=== PATIENT | male | born 1940 | race Caucasian/White ===

== ENCOUNTER 2016-07-18 13:24 | Outpatient (RCR) | payer MEDICARE, BC ==
[~2016-07-18 13:24] MED LIST: ACIDOPHILUS100 MG PO; ACIPHEX; ACTOS15 MG; AMIO200T2 PO; AMLO5TAB2 PO; APIX5TAB PO; ASCO500C14 PO; ASP325TEC PO; ASP81CT PO; ASP81TEC PO; ASPI; ASPI-587 PO; ASPI-875 PO; ATN50T; ATRV10T; AVODART; CALC-80; CALCIUM; CEPH500C PO; CHOL10003 PO; CIPR500T78 PO; CLOP75TA PO; CLOP75TA28 PO; CLPD75T PO; CYAN10006 PO; D50KC PO; DILT180C PO; DILT180C84 PO; DOXA1TAB2 PO; DOXY100C2 PO; DOXY100T2 PO; DOXY100T61 PO; DUTA0.5C14 PO; DUTA1CPM PO; DUTA1CPM4 PO; ECHI1CAP PO; FAMO20TA5 PO; FENO134C2 PO; FENO145T2; FISH OIL; FURO20TA4 PO; GARLIC; GLUMETZA; HCT25T PO; HYDR-3876 PO; LD5O35 TOP; LEVO500T69 PO; LOSA100T28 PO; LOSA100T7 PO; LOSA50TA6 PO; METO100T2 PO; MIRA25TA PO; MULT-608 PO; MULTIVITAMIN; NFNEB10T PO; NIAC1CAP PO; NIAC250T17 PO; NITR-68 PO; NITR0.4T SL; OMEG-12 PO; OMEG1CAP24 PO; OMEG1CAP51 PO; OMEP-10 PO; OXYB10TA PO; OXYB5TAB PO; PANT40TA PO; PANT40TA3 PO; PANTOTHENIC ACID; PHEN200T27 PO; PNT40TEC PO; POTA99TA7; PRAV20TA3 PO; RANO10003 PO; ROSU5TAB PO; RT-ALBUINH INH; SAXA5TAB PO; SCR1T1 PO; SULF1TAB38; TAMS0.4C2 PO; TAMS0.4C98 PO; TELM40T; TERB250T10; VITA1CAP21 PO; VITA1TAB30 PO; VITAMIN B; VITAMIN C; VITAMIN E; calcium with D
== END 2016-07-18 15:18 | disposition home or self-care (01) ==
PROVIDERS: ATTEND Family Medicine
DX: M54.5 Low back pain (principal); R53.1 Weakness

== ENCOUNTER → 2017-02-28 | Outpatient (CLI) | payer MEDICARE, BC ==
[~2017-02-28] MED LIST changes: +REGADENOSON 0.4 MG/5 ML SYR (LEXISCAN) IV ONE
[2017-02-28 09:04] VITALS: BP 168/70
[2017-02-28 09:23] VITALS: BP 163/69
[2017-02-28 09:25] VITALS: BP 162/76
== END ==
LOC: CARD 07:12
PROVIDERS: ATTEND Internal Medicine Cardiovascular Disease
DX: I10 Essential (primary) hypertension (principal); R06.09 Other forms of dyspnea; R53.83 Other fatigue; E78.4 Other hyperlipidemia; I65.23 Occlusion and stenosis of bilateral carotid arteries; I48.0 Paroxysmal atrial fibrillation; E66.09 Other obesity due to excess calories
CPT/HCPCS: 78452; 93017

== ENCOUNTER → 2017-03-09 | Outpatient (CLI) | payer MEDICARE, BC ==
[~2017-03-09] MED LIST changes: +CATHETER FLUSH 10 ML SYR IV PRN; -REGADENOSON 0.4 MG/5 ML SYR (LEXISCAN) IV ONE
== END ==
LOC: CARD 12:34
PROVIDERS: ATTEND Internal Medicine Cardiovascular Disease
DX: I65.23 Occlusion and stenosis of bilateral carotid arteries (principal); R53.83 Other fatigue; E78.4 Other hyperlipidemia; I10 Essential (primary) hypertension; R06.09 Other forms of dyspnea; I48.0 Paroxysmal atrial fibrillation; E66.09 Other obesity due to excess calories
CPT/HCPCS: 93306

== ENCOUNTER 2017-03-18 19:21 | Observation (INO) | payer MEDICARE, BC ==
[~2017-03-18] VITALS: Ht 182.9 cm; Wt 116.1 kg
[~2017-03-18 19:21] MED LIST changes: -CATHETER FLUSH 10 ML SYR IV PRN
[2017-03-18] MEDS ORDERED: ASPIRIN 81 MG CHEW (CHILDREN'S ASA) PO ONE (19:45)
[2017-03-18 20:02] LABS: BASOPHILS % (AUTO) 0 % (0-10); EOSINOPHILS # (AUTO) 0.1 10^3/uL (0.0-0.3); EOSINOPHILS % (AUTO) 2 % (0-10); LYMPHOCYTES % (AUTO) 40 % (12-44); MEAN CORPUSCULAR HEMOGLOBIN 32 PG (25-34); MEAN CORPUSCULAR HGB CONC 34 G/DL (32-36); MEAN CORPUSCULAR VOLUME 94 FL (80-99); MEAN PLATELET VOLUME 11.6 FL (7.4-10.4); MONOCYTES % (AUTO) 19 % (0-12); NEUTROPHILS # (AUTO) 1.9 X 10^3 (1.8-7.8); NEUTROPHILS % (AUTO) 39 % (42-75); PLATELET COUNT 140 10^3/uL (130-400); RED CELL DISTRIBUTION WIDTH 13.6 % (10.0-14.5)
--- NOTE | 2017-03-18 20:04 | Diagnostic Imaging Report ---
EXAMINATION: Chest radiograph, portable AP view. DATE: March 18, 2017 at 1951 hours. INDICATION: 76-year-old male, chest pain. COMPARISON: April 23, 2016. FINDINGS: There are median sternotomy wires. There are mediastinal surgical clips. Heart size and mediastinal contours are unchanged. There is no identified pneumothorax. There is no large pleural effusion. There is a nodular opacity overlying the right midlung unchanged since comparison chest radiograph of June 19, 2015. There is no identified interval focal airspace consolidation. IMPRESSION: 1. No identified acute cardiopulmonary abnormality. Dictated by: Dictated on workstation # [id number]
[2017-03-18 20:06] LABS: INR 1.2 (0.8-1.4)
[2017-03-18] MEDS ORDERED: NITROGLYCERIN 2% OINT 1 GM UNIT DOSE PACKET TOP ONE (20:15)
[2017-03-18 20:18] LABS: ALANINE AMINOTRANSFERASE 18 U/L (0-55); ALBUMIN 3.9 GM/DL (3.2-4.5); AMYLASE 50 U/L (25-125); ANION GAP 10 MMOL/L (5-14); ASPARTATE AMINO TRANSFERASE 19 U/L (5-34); BILIRUBIN,TOTAL 0.8 MG/DL (0.1-1.0); BLOOD UREA NITROGEN 13 MG/DL (7-18); BUN/CREATININE RATIO 15; CALCIUM 9.1 MG/DL (8.5-10.1); CARBON DIOXIDE 23 MMOL/L (21-32); CHLORIDE 108 MMOL/L (98-107); CREATINE KINASE 92 U/L (30-200); CREATININE SERUM 0.84 MG/DL (0.60-1.30); GFR ESTIMATED > 60; GLUCOSE 105 MG/DL (70-105); LIPASE 21 U/L (8-78); MAGNESIUM 2.1 MG/DL (1.8-2.4); POTASSIUM 3.5 MMOL/L (3.6-5.0); SODIUM 141 MMOL/L (135-145); TOTAL PROTEIN 6.6 GM/DL (6.4-8.2)
[2017-03-18 20:24] LABS: TROPONIN I < 0.30 NG/ML (<0.30)
[2017-03-18 22:15] VITALS: BP 197/89
[2017-03-18] MEDS ORDERED: morphine INJ 4 MG/ML 1 ML (VIAL/SYRINGE) IV PRN (22:30)
[2017-03-18] MEDS ORDERED: NITROGLYCERIN 0.4 MG SL TABS BTL 25'S SL PRN (22:30)
[2017-03-19] VITALS (17 sets, daily range): BP systolic 121–199; BP diastolic 67–100
[2017-03-19] MEDS ORDERED: amLODIPine 10 MG (NORVASC) TAB PO ONE
[2017-03-19] MEDS ORDERED: NITROGLYCERIN DRIP 25 MG/D5W 250 ML IV SCH
[2017-03-19] MEDS: NITROGLYCERIN 2% OINT 1 GM UNIT DOSE PACKET TOP SCH ×3 (03:33→14:18)
[2017-03-19 05:17] LABS: BASOPHILS % (AUTO) 0 % (0-10); EOSINOPHILS # (AUTO) 0.1 10^3/uL (0.0-0.3); EOSINOPHILS % (AUTO) 3 % (0-10); LYMPHOCYTES # (AUTO) 1.7 X 10^3 (1.0-4.0); LYMPHOCYTES % (AUTO) 38 % (12-44); MEAN CORPUSCULAR HEMOGLOBIN 31 PG (25-34); MEAN CORPUSCULAR HGB CONC 33 G/DL (32-36); MEAN CORPUSCULAR VOLUME 94 FL (80-99); MEAN PLATELET VOLUME 11.9 FL (7.4-10.4); MONOCYTES # (AUTO) 0.8 X 10^3 (0.0-1.0); MONOCYTES % (AUTO) 17 % (0-12); NEUTROPHILS # (AUTO) 1.9 X 10^3 (1.8-7.8); NEUTROPHILS % (AUTO) 42 % (42-75); PLATELET COUNT 136 10^3/uL (130-400); RED CELL DISTRIBUTION WIDTH 13.5 % (10.0-14.5); WHITE BLOOD COUNT 4.5 10^3/uL (4.3-11.0)
[2017-03-19 05:48] LABS: ALANINE AMINOTRANSFERASE 19 U/L (0-55); ALBUMIN 3.5 GM/DL (3.2-4.5); ANION GAP 9 MMOL/L (5-14); ASPARTATE AMINO TRANSFERASE 19 U/L (5-34); BILIRUBIN,TOTAL 0.7 MG/DL (0.1-1.0); BLOOD UREA NITROGEN 11 MG/DL (7-18); BUN/CREATININE RATIO 14; CALCIUM 8.6 MG/DL (8.5-10.1); CARBON DIOXIDE 22 MMOL/L (21-32); CHLORIDE 111 MMOL/L (98-107); CHOLESTEROL 157 MG/DL (< 200); CREATININE SERUM 0.78 MG/DL (0.60-1.30); DIRECT LDL 110 MG/DL (1-129); GFR ESTIMATED > 60; GLUCOSE 89 MG/DL (70-105); PHOSPHORUS 2.7 MG/DL (2.3-4.7); POTASSIUM 3.8 MMOL/L (3.6-5.0); SODIUM 142 MMOL/L (135-145); TOTAL PROTEIN 5.9 GM/DL (6.4-8.2); TRIGLYCERIDES 123 MG/DL (<150); VLDL CHOLESTEROL 25 MG/DL (5-40)
[2017-03-19 05:57] LABS: MYOGLOBIN SERUM 76.7 NG/ML (10.0-92.0)
--- NOTE | 2017-03-19 06:46 | ED Chest Pain ---
General Chief Complaint: Chest Pain Stated Complaint: CHEST PAIN; HYPERTENSIVE URGENCY Nursing Triage Note: C/O cp starting approx 1 hour agop while waiting to go into [facility]. Also states that he nearly "passed out" Denies soa or radiation. States the pain is gone at this time Nursing Sepsis Screen: No Definite Risk Source: patient History of Present Illness Time seen by provider: 19:23 Initial Comments PT ARRIVES VIA POV FROM HOME C/O CHEST PAIN--BEGAN APPROXIMATELY AN HOUR AGO, WHILE WALKING IN PARKING LOT FROM HIS VEHICLE INTO [facility]--DID GO AHEAD AND EAT AND THEN CAME HERE--PAIN IS GONE NOW STATES HE ALMOST FAINTED WHEN HE WAS WALKING INTO THE RESTAURANT, STILL FEELS DIZZY PT HAS HX OF CAD, AND HAS HAD 3 VESSEL CABG AND 1 STENT--HAS NTG, AND HAD IT IN HIS POCKET, BUT DID NOT TAKE IT AND STATES HE HAS NEVER TAKEN IT. HAS INTERMITTENT ATRIAL FIBRILLATION--TAKES ELIQUIS + MILD SHORTNESS OF BREATH WITH EXERTION, NOT NOW NO SWEATS NO NAUSEA HAS CHRONIC LEG EDEMA, NO DIFFERENT THAN USUALLY MYOCARDIAL SPECT IMAGING 02/28/17--NO SIGNIFICANT ISCHEMIA OR INFARCTION, NORMAL EF OF 58% WITH NORMAL WALL MOTION ECHOCARDIOGRAM 03/09/17- WALL THICKNESS IS INCREASED, EF 60-65%, NO WALL MOTION ABNORMALITIES, MILD MITRAL REGURG. PCP: DR. LANDON STATISTICAL DEVELOPER: DR BAKER Allergies and Home Medications Allergies Coded Allergies: ciprofloxacin (Verified Adverse Reaction, Mild, HALLUCINATIONS, 02/28/17) clonidine (Verified Adverse Reaction, Mild, HALLUCINATIONS, 02/28/17) Uncoded Allergies: AMINODORONE (Allergy, Unknown, 03/18/17) Home Medications Apixaban 5 Mg Tablet, 5 MG PO BID, (Reported) Cholecalciferol 1,000 Unit Tablet, 1,000 UNIT PO BID, (Reported) Cyanocobalamin (Vitamin B-12) 1,000 Mcg Tablet, 1,000 MCG PO DAILY, (Reported) Diltiazem HCl 180 Mg Cap.er.24h, 180 MG PO DAILY, #30 Ref 6 Prescribed by: RYAN LANDON on 05/02/16928 Doxazosin Mesylate 1 Mg Tablet, 1 MG PO BID, (Reported) Doxycycline Hyclate 100 Mg Tablet, 100 MG PO BID@, #8 Prescribed by: RYAN LANDON on 05/02/16928 Dutasteride/Tamsulosin HCl 1 Each Cpmp.24hr, 1 CAP PO HS, (Reported) Furosemide 20 Mg Tablet, 20 MG PO DAILY PRN for SWELLING, (Reported) Lidocaine HCl 35 Gm Oint, TOP BID PRN for PAIN, (Reported) Losartan Potassium 100 Mg Tablet, 100 MG PO DAILY, (Reported) Metoprolol Tartrate 100 Mg Tablet, 100 MG PO BID, (Reported) Multivitamins 1 Tab Tablet, 1 TAB PO DAILY, (Reported) Oxybutynin Chloride 10 Mg Tab.er.24, 10 MG PO DAILY, (Reported) Pantoprazole Sodium 40 Mg Tablet.dr, 40 MG PO DAILY, (Reported) Saxagliptin HCl 5 Mg Tablet, 5 MG PO DAILY, (Reported) Review of Systems Constitutional: see HPI, dizziness EENTM: No Symptoms Reported Respiratory: See HPI, SOA With Exertion Cardiovascular: See HPI, Chest Pain, Edema, Lightheadedness, Denies Palpitations, Denies Syncope Gastrointestinal: No Symptoms Reported, Denies Abdominal Pain, Denies Nausea, Denies Vomiting Genitourinary: No Symptoms Reported Musculoskeletal: no symptoms reported Skin: no symptoms reported Psychiatric/Neurological: No Symptoms Reported Endocrine: No Symptoms Reported Hematologic/Lymphatic: No Symptoms Reported Other Comments PT 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 Past Pyjpqwl-Xlmlht-Hjwory Hx Patient Social History Alcohol Use: Rarely Uses Recreational Drug Use: No Smoking Status: Former Smoker (1 PPD--QUIT YEARS AGO, PER PT ON 03/18/17) Type Used: Cigarettes 2nd Hand Smoke Exposure: No Recent Foreign Travel: No Contact w/Someone Who Travel: No Recent Infectious Disease Expo: No Recent Hopitalizations: No Physical Abuse: No Sexual Abuse: No Mistreated: No Fear: No Immunizations Up To Date Tetanus Booster (TDap): Unknown Date of Pneumonia Vaccine: May 09, 2013 Date of Influenza Vaccine: Mar 09, 2016 Seasonal Allergies Seasonal Allergies: Yes Surgeries History of Surgeries: Yes (CABG; CARDIAC CATHS--STENT X 1; ,KIDNEY STONE SX X3, LITHOTRIPSIES; BILAT EYE IMPLANT/CATARACTS, PROSTATE SEED IMPLANTS; COLONOSCOPY/ EGD) Surgeries: Cardiac, CABG, Coronary Stent, Eye Surgery, Gallbladder, Renal Respiratory History of Respiratory Disorde: Yes (SLEEP APNEA-CPAP) Respiratory Disorders: Pneumonia, Sleep Apnea Currently Using CPAP: Yes Currently Using BIPAP: No Cardiovascular History of Cardiac Disorders: Yes (TRIPLE BYPASS, STENT, HX AFIB EPISODES) Cardiac Disorders: Angina, Atrial Fibrillation, Chronic Edema/Swelling, Coronary Artery Disease, High Cholesterol, Hypertension Neurological History of Neurological Disord: Yes (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) Neurological Disorders: TIA Reproductive System Hx Reproductive Disorders: No Sexually Transmitted Disease: No HIV/AIDS: No Genitourinary History of Genitourinary Disor: Yes (PROSTATE CANCER; PROSTATE ENLARGEMENT) Genitourinary Disorders: Kidney Infection, Prostate Problems, Bladder Infection , Kidney Stones Gastrointestinal History of Gastrointestinal Di: Yes Gastrointestinal Disorders: Gastroesophageal Reflux, Chronic Constipation, Polyps Musculoskeletal History of Musculoskeletal Dis: Yes (MILD, lyme's disease) Musculoskeletal Disorders: Arthritis 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, Non-Insulin dep HEENT History of HEENT Disorders: Yes (BILATERAL CATARACT SURGERY) HEENT Disorders: Cataract Loss of Vision: Denies Hearing Impairment: Hard of Hearing Cancer History of Cancer: Yes (PROSTATE SEEDS IMPLANTED 10/08) Cancer: Prostate Psychosocial History of Psychiatric Problem: No Suicide Risk Score: 0 Integumentary History of Skin or Integumenta: No Blood Transfusions History of Blood Disorders: No Family Medical History Significant Family History: Hypertension Family Medial History: Cardiovascular disease 19 FATHER, Diabetes mellitus G8 SISTER Physical Exam Vital Signs Vital Sign - Last 12Hours 03/18/17 19:25 Pulse 66 Resp 18 B/P (MAP) 224/93 Pulse Ox 96 O2 Delivery Nasal Cannula O2 Flow Rate 2.00 Capillary Refill : Less Than 3 Seconds General Appearance: No Apparent Distress, WD/WN, Obese HEENT: PERRL/EOMI Neck: Full Range of Motion, Normal Inspection, Non Tender, Supple Respiratory: Chest Non Tender, Normal Breath Sounds, No Accessory Muscle Use, No Respiratory Distress Cardiovascular: Regular Rate, Rhythm, No JVD, No Murmur, Normal Peripheral Pulses Gastrointestinal: Non Tender, Soft Extremity: Normal Range of Motion, Non Tender, No Calf Tenderness, Pedal Edema (2+ BILATERALLY) Neurologic/Psychiatric: Alert, Oriented x3, No Motor/Sensory Deficits, Normal 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, 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 Norm as Tested Skin: Normal Color, Warm/Dry Progress/Results/Core Measures Results/Orders Lab Results Laboratory Tests Test 03/18/17 19:30 Range/Units White Blood Count 5.0 4.3-11.0 10^3/uL Red Blood Count 4.20 L 4.35-5.85 10^6/uL Hemoglobin 13.3 13.3-17.7 G/DL Hematocrit 39 L 40-54 % Mean Corpuscular Volume 94 80-99 FL Mean Corpuscular Hemoglobin 32 25-34 PG Mean Corpuscular Hemoglobin Concent 34 32-36 G/DL Red Cell Distribution Width 13.6 10.0-14.5 % Platelet Count 140 130-400 10^3/uL Mean Platelet Volume 11.6 H 7.4-10.4 FL Neutrophils (%) (Auto) 39 L 42-75 % Lymphocytes (%) (Auto) 40 12-44 % Monocytes (%) (Auto) 19 H 0-12 % Eosinophils (%) (Auto) 2 0-10 % Basophils (%) (Auto) 0 0-10 % Neutrophils # (Auto) 1.9 1.8-7.8 X 10^3 Lymphocytes # (Auto) 2.0 1.0-4.0 X 10^3 Monocytes # (Auto) 1.0 0.0-1.0 X 10^3 Eosinophils # (Auto) 0.1 0.0-0.3 10^3/uL Basophils # (Auto) 0.0 0.0-0.1 10^3/uL Prothrombin Time 15.0 H 12.2-14.7 SEC INR Comment 1.2 0.8-1.4 Activated Partial Thromboplast Time 31 24-35 SEC Sodium Level 141 135-145 MMOL/L Potassium Level 3.5 L 3.6-5.0 MMOL/L Chloride Level 108 H 98-107 MMOL/L Carbon Dioxide Level 23 21-32 MMOL/L Anion Gap 10 5-14 MMOL/L Blood Urea Nitrogen 13 7-18 MG/DL Creatinine 0.84 0.60-1.30 MG/DL Estimat Glomerular Filtration Rate > 60 BUN/Creatinine Ratio 15 Glucose Level 105 70-105 MG/DL Calcium Level 9.1 8.5-10.1 MG/DL Magnesium Level 2.1 1.8-2.4 MG/DL Total Bilirubin 0.8 0.1-1.0 MG/DL Aspartate Amino Transf (AST/SGOT) 19 5-34 U/L Alanine Aminotransferase (ALT/SGPT) 18 0-55 U/L Alkaline Phosphatase 40 40-136 U/L Total Creatine Kinase 92 30-200 U/L Creatine Kinase MB 1.2 <6.6 NG/ML Troponin I < 0.30 <0.30 NG/ML B-Type Natriuretic Peptide 133.2 H <100.0 PG/ML Total Protein 6.6 6.4-8.2 GM/DL Albumin 3.9 3.2-4.5 GM/DL Amylase Level 50 25-125 U/L Lipase 21 8-78 U/L My Orders Orders - MAGDALENA CROWE DO Amylase (03/18/17 19:31) Cbc With Automated Diff (03/18/17 19:31) Comprehensive Metabolic Panel (03/18/17 19:31) Creatine Kinase (03/18/17 19:31) Creatine Kinase Mb (03/18/17 19:31) Lipase (03/18/17 19:31) Partial Thromboplastin Time (03/18/17 19:31) Protime With Inr (03/18/17 19:31) Troponin I (03/18/17 19:31) Chest 1 View, Ap/Pa Only (03/18/17 19:31) O2 (03/18/17 19:31) Ekg Tracing (03/18/17 19:31) Aspirin Chewable Tablet (Baby Aspirin Ch (03/18/17 19:45) BNP (03/18/17 19:31) Monitor-Rhythm Ecg Trace Only (03/18/17 19:31) Magnesium (03/18/17 19:31) Nitroglycerin Ointment (Nitrobid Ointme (03/18/17 20:15) Medications Given in ED Current Medications Medications Dose Ordered Sig/Mariajose Route Start Time Stop Time Status Last Admin Dose Admin Aspirin 324 mg ONCE ONCE PO 03/18/17 19:45 03/18/17 19:46 DC 03/18/17 19:40 324 MG Nitroglycerin 1 inch ONCE ONCE TOP 03/18/17 20:15 03/18/17 20:16 DC 03/18/17 20:11 1 INCH Vital Signs/I&O Vital Sign - Last 12Hours 03/18/17 03/18/17 19:25 19:47 Pulse 66 Resp 18 B/P (MAP) 224/93 Pulse Ox 96 98 O2 Delivery Nasal Cannula Nasal Cannula O2 Flow Rate 2.00 2.00 Blood Pressure Mean: 92 Point of Care Testing Finger Stick Blood Glucose: 89 Progress Note : Progress Note NITROPASTE PLACED FOR ELEVATED BP--BP DOWN AND PT LESS DIZZY PT LATER STATES THAT HE DOESN'T REMEMBER IF HE TOOK HIS BP MEDICATION TODAY-- THINKS HE MIGHT HAVE FORGOTTEN TO TAKE IT TODAY. UNEVENTFUL ER STAY ECG Initial ECG Rhythm: Normal Sinus Initial ECG Comparisson: Unchanged Departure Communication (Admissions) Progress Notes 2109--SPOKE WITH DR NAQVI, LAST SAWYER FOR DR. LANDON/[facility] ACCEPTS PT FOR ADMIT. 2112--SPOKE WITH DR. CARRASCO FOR CARDIOLOGY CONSULT. Impression Impression: Primary Impression: Chest pain Additional Impression: HTN (hypertension) Disposition: ADMITTED INPATIENT Condition: Improved Admissions Decision to Admit Reason: Admit from ER (General) Decision to Admit/Date: Mar 18, 2017 Time/Decision to Admit Time: 21:10 Departure-Patient Inst. Referrals: RYAN LANDON MD (PCP) Primary Care Physician MAGDALENA CROWE DO Mar 19, 2017 06:46
[2017-03-19] MEDS ORDERED: ASPIRIN E.C. 325 MG (ECOTRIN) TABLET PO SCH (09:00)
--- NOTE | 2017-03-19 10:24 | Diagnostic Imaging Report ---
INDICATION: Dyspnea. TECHNIQUE: Single-view chest 5:16 AM. CORRELATION STUDY: 03/18/2017. FINDINGS: There are poststernotomy changes. Heart size enlarged. Mediastinum stable. Vasculature within normal limits. Likely chronic, senescent-type changes about the lung parenchyma. A few calcified granulomas present. IMPRESSION: Poststernotomy changes. Cardiac enlargement without failure or otherwise acute findings. Dictated by: Dictated on workstation # [id number]
[2017-03-19] MEDS ORDERED: lisINopril 20 MG (ZESTRIL) TAB PO SCH (10:45)
[2017-03-19] MEDS ORDERED: DILT120C53 PO (11:00)
[2017-03-19] MEDS ORDERED: OXYB15TA PO (11:29)
[2017-03-19] MEDS ORDERED: PRAV20TA3 PO (11:29)
[2017-03-19] MEDS ORDERED: METO100T2 PO ×2 (11:29→12:40)
[2017-03-19] MEDS ORDERED: UBID100C17 PO (11:29)
[2017-03-19] MEDS ORDERED: MULT-1029 PO (11:29)
[2017-03-19] MEDS ORDERED: CHOL10007 PO (11:29)
[2017-03-19] MEDS ORDERED: CYAN10007 PO (11:29)
--- NOTE | 2017-03-19 11:58 | History & Physical-Hospitalist ---
HPI History of Present Illness: HPI/Chief Complaint CC: Chest pain with malignant HTN episode HPI: This is a 76-year-old white male clinic patient of Dr. Shetty with a past medical history of hypertension and BPH the presents to the emergency room with complaints of chest pressure and malignant hypertension episode of 220/ 120. He has had multiple blood pressure medication changes recently and has sensitivity to clonidine and amiodarone but having more more difficulty with chest pressure and hypertension that remains under control as previous. I have reconciled all his home medications and cardiology will overhaul blood pressure management per their request. He denies any chest pressure at this current time and questions whether or not he had chest pressure to begin with and was arguing with the nurse and engineer technical staff and his regarding his presenting complaint. He also takes his blood pressure medication now and then and changes around when he thinks he needs to change it. Source: patient, family, RN/MD Exam Limitations: no limitations Date Seen 03/19/17 Time Seen by Provider: 11:00 Attending Physician Bri Shetty MD PCP Bri Shetty MD Referring Physician Date of Admission Mar 18, 2017 at 21:15 Home Medications & Allergies Home Medications Reviewed patient Home Medication Reconciliation Form Allergies Allergies Coded Allergies ciprofloxacin (Verified Adverse Reaction, Mild, HALLUCINATIONS, 02/28/17) clonidine (Verified Adverse Reaction, Mild, HALLUCINATIONS, 02/28/17) Uncoded Allergies AMINODORONE ( Allergy, Unknown, 03/18/17) Past Humdbnq-Havtui-Jjczfm Hx Patient Social History Marrital Status: Employed/Student: retired ([employer]) Alcohol Use: Rarely Uses Recreational Drug Use: No Smoking Status: Former Smoker (1 PPD--QUIT YEARS AGO, PER PT ON 03/18/17) Type Used: Cigarettes 2nd Hand Smoke Exposure: No Physical Abuse Screen: No Sexual Abuse: No Recent Foreign Travel: No Contact w/other who traveled: No Recent Hopitalizations: No Recent Infectious Disease Expo: No Immunizations Up To Date Tetanus Booster (TDap): Unknown Date of Pneumonia Vaccine: May 09, 2013 Date of Influenza Vaccine: Mar 09, 2016 Seasonal Allergies Seasonal Allergies: Yes Surgeries Yes (CABG; CARDIAC CATHS--STENT X 1; ,KIDNEY STONE SX X3,LITHOTRIPSIES; BILAT EYE IMPLANT/CATARACTS, PROSTATE SEED IMPLANTS; COLONOSCOPY/EGD) Cardiac, CABG, Coronary Stent, Eye Surgery, Gallbladder, Renal Respiratory Yes (SLEEP APNEA-CPAP) Sleep Apnea Currently Using CPAP: Yes Currently Using BIPAP: No Cardiovascular Yes (TRIPLE BYPASS, STENT, HX AFIB EPISODES) Angina, Atrial Fibrillation, Chronic Edema/Swelling, Coronary Artery Disease, High Cholesterol, Hypertension Neurological Yes (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) TIA Reproductive System Hx Reproductive Disorders: No Sexually Transmitted Disease: No HIV/AIDS: No Genitourinary Yes (PROSTATE CANCER; PROSTATE ENLARGEMENT) Kidney Infection, Prostate Problems, Bladder Infection, Kidney Stones Gastrointestinal Yes Gastroesophageal Reflux, Chronic Constipation, Polyps Musculoskeletal Yes (MILD, lyme's disease) Arthritis 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, Non-Insulin dep HEENT History of HEENT Disorders: Yes (BILATERAL CATARACT SURGERY) HEENT Disorders: Cataract Loss of Vision: Denies Hearing Impairment: Hard of Hearing Cancer Yes (PROSTATE SEEDS IMPLANTED 10/08) Prostate Psychosocial History of Psychiatric Problem: No Integumentary History of Skin or Integumenta: No Blood Transfusions History of Blood Disorders: No Family Medical History Significant Family History: Hypertension Family Hx: Cardiovascular disease 19 FATHER, Diabetes mellitus G8 SISTER Review of Systems Constitutional: see HPI EENTM: no symptoms reported Respiratory: no symptoms reported Cardiovascular: chest pain Gastrointestinal: no symptoms reported Genitourinary: no symptoms reported Musculoskeletal: no symptoms reported Skin: no symptoms reported Psychiatric/Neurological: No Symptoms Reported All Other Systems Reviewed Negative Unless Noted: Yes Physical Exam Physical Exam Vital Signs Vital Sign - Last 12Hours 03/18/17 03/18/17 19:25 22:03 Temp 98.3 Pulse 66 Resp 18 B/P (MAP) 224/93 Pulse Ox 96 O2 Delivery Nasal Cannula O2 Flow Rate 2.00 Capillary Refill : Less Than 3 Seconds General Appearance: No Apparent Distress, WD/WN, Chronically ill, Obese Eyes: Bilateral Eye Normal Inspection, Bilateral Eye PERRL HEENT: PERRL/EOMI, Normal ENT Inspection, Pharynx Normal Neck: Full Range of Motion, Normal Inspection, Non Tender, Supple, Carotid Bruit Respiratory: Chest Non Tender, Lungs Clear, Normal Breath Sounds, No Accessory Muscle Use, No Respiratory Distress Cardiovascular: No Edema, No Gallop, No JVD, No Murmur, Normal Peripheral Pulses, Irregularly Irregular Gastrointestinal: Normal Bowel Sounds, No Organomegaly, No Pulsatile Mass, Non Tender, Soft Back: Normal Inspection, No CVA Tenderness, No Vertebral Tenderness Extremity: Normal Capillary Refill, Normal Inspection, Normal Range of Motion, Non Tender, No Calf Tenderness, No Pedal Edema Neurologic/Psychiatric: Alert, Oriented x3, No Motor/Sensory Deficits, Normal Mood/Affect Skin: Normal Color, Warm/Dry Lymphatic: No Adenopathy Results Results/Procedures Lab Laboratory Tests 03/18/17 19:30 03/19/17 04:25 Assessment/Plan Admission Diagnosis Assessment: Chest pain with malignant hypertensive episode AF Mild elevation in BNP BPH Hyperlipidemia Assessment and Plan Plan: Reconciled all home meds except for blood pressure management of which cardiology will manage at the request Monitor closely for chest pain Monitor oxygen level Disposition per cardiology Diagnosis/Problems Diagnosis/Problems (1) Atrial fibrillation Status: Chronic Assessment & Plan: Maintain telemetry and monitor heart rate Qualifiers: Qualified Codes: I48.2 - Chronic atrial fibrillation (2) BPH (benign prostatic hyperplasia) Status: Chronic Assessment & Plan: continue on all home meds Qualifiers: Qualified Codes: N40.0 - Benign prostatic hyperplasia without lower urinary tract symptoms (3) HTN (hypertension) Status: Chronic Assessment & Plan: Blood pressure management overhauled by cardiology at the request (4) Chest pain Status: Acute Assessment & Plan: Cardiology evaluation for risk stratification Qualifiers: Qualified Codes: R07.89 - Other chest pain Clinical Quality Measures AMI/AHF: ASA po Prior to arrival: No DVT/VTE Risk/Contraindication: Risk Factor Score Per Nursin RFS Level Per Nursing on Admit: 2=Moderate JANEY NAQVI DO Mar 19, 2017 11:58
[2017-03-19] MEDS ORDERED: FUROSEMIDE 20 MG (LASIX) TAB PO PRN (12:00)
--- NOTE | 2017-03-19 12:26 | Consultation-Cardiology ---
HPI-Cardiology Cardiology Consultation: Date of Consultation 03/19/17 Date of Admission Attending Physician Bri Shetty MD Admitting Physician Bri Shetty MD Consulting Physician Kwadwo SORIA MD HPI: Time Seen by Provider: 12:21 Chief Complaint: Chest pain, dizziness This is a 76-year-old gentleman who is a patient of Dr. Culver and Dr. Shetty. He presented with complain of chest pain and dizziness. No further complaints on my history. The chest pain occurred while he was walking. Chest pain was mild intensity with no radiation. There were no excessive abating or relieving factors. It went away by itself. Dizziness however did persisted even in the ER. He was found to have significant high blood pressure. Complains of mild shortness of breath. The patient has history of coronary artery disease with three-vessel CABG and PCI. Patient also has previous history of paroxysmal atrial fibrillation and takes oral anticoagulation. Review of Systems-Cardiology Review of Systems Constitutional: No As described under HPI, No no symptoms reported, No chills, No fever, lightheadedness, No malaise, No tiredness, No weight loss, No weight gain, No other Eyes: No As described under HPI, No no symptoms reported, No blindness, No blurred vision, No contact lenses, No drainage, No decreased acuity, No foreign body sensation, No glasses, No inflammation, No pain, No photophobia, No previous injury, No shadows, No tunnel vision, No other, No vision change Ears/Nose/Throat: No As described under HPI, No no symptoms reported, No chronic hearing loss, No epistaxis, No ear discharge, No ear pain, No loose teeth, No mouth pain, No mouth swelling, No nasal drainage, No nose pain, No recent hearing loss, No throat pain, No throat swelling, No ulcerations, No other Respiratory: shortness of breath Cardiovascular: chest pain Gastrointestinal: No no symptoms reported, No As described under HPI, No abdomen distended, No abdominal pain, No blood streaked bowels, No constipation , No diarrhea, No difficulty swallowing, No nausea, No poor appetite, No poor fluid intake, No rectal bleeding, No vomiting, No other, No nausea/vomiting/ diarrhea, No stool coloration changes Genitourinary: No no symptoms reported, No As described under HPI, No burning, No dysuria, No discharge, No frequency, No flank pain, No hematuria, No incontinence, No pain, No urgency, No other, No urine frequency changes, No urine coloration changes Musculoskeletal: No no symptoms reported, No As describe under HPI, No back pain, No gout, No joint pain, No joint swelling, No muscle pain, No muscle stiffness, No neck pain, No other Skin: No no symptoms reported, No As described under HPI, No change in color, No change in hair/nails, No dryness, No lesions, No lumps, No rash, No other, No skin related problems, No ulcerations, No rash on exposed areas, No ulcerations on exposed areas Psychiatric/Neurological: As described under HPI Hematologic: No no symptoms reported, No As described under HPI, No anemia, No blood clots, No easy bleeding, No easy bruising, No swollen glands, No other, No bleeding abnormalities All Other Systems Reviewed Negative Unless Noted: Yes [id number] Hx Patient Social History Marrital Status: Employed/Student: retired ([employer]) Alcohol Use: Rarely Uses Recreational Drug Use: No Smoking Status: Former Smoker (1 PPD--QUIT YEARS AGO, PER PT ON 03/18/17) Former smoker/When Quit: Apr 21, 1980 Type Used: Cigarettes 2nd Hand Smoke Exposure: No Recent Foreign Travel: No Recent Infectious Disease Expo: No Physical Abuse Screen: No Sexual Abuse: No Immunizations Up To Date Tetanus Booster (TDap): Unknown Date of Pneumonia Vaccine: May 09, 2013 Date of Influenza Vaccine: Mar 09, 2016 Past Medical History PMH As described under Assessment. Family Medical History Family History: Cardiovascular disease 19 FATHER, Diabetes mellitus G8 SISTER Allergies and Home Medications Allergies Coded Allergies: ciprofloxacin (Verified Adverse Reaction, Mild, HALLUCINATIONS, 02/28/17) clonidine (Verified Adverse Reaction, Mild, HALLUCINATIONS, 02/28/17) Uncoded Allergies: AMINODORONE (Allergy, Unknown, 03/18/17) Home Medications Apixaban 5 Mg Tablet, 5 MG PO BID, (Reported) Cholecalciferol (Vitamin D3) 1,000 Unit Capsule, 1,000 UNIT PO BID, (Reported) Cyanocobalamin (Vitamin B-12) 1,000 Mcg Tablet.er, 1,000 MCG PO DAILY, (Reported ) Diltiazem HCl 120 Mg Cap.er.24h, 120 MG PO DAILY, (Reported) Doxazosin Mesylate 1 Mg Tablet, 1 MG PO BID, (Reported) Dutasteride/Tamsulosin HCl 1 Each Cpmp.24hr, 1 CAP PO HS, (Reported) Furosemide 20 Mg Tablet, 20 MG PO DAILY PRN for SWELLING, (Reported) Lidocaine HCl 35 Gm Oint, TOP BID PRN for PAIN, (Reported) Losartan Potassium 100 Mg Tablet, 100 MG PO DAILY, (Reported) Metoprolol Tartrate 100 Mg Tablet, 100 MG PO DAILY, (Reported) Metoprolol Tartrate 100 Mg Tablet, 50 MG PO HS, (Reported) TAKES 1/2 OF A (100 MG) TABLET Multivit-Min/FA/Lycopene/Lut 1 Each Tablet, 1 TAB PO DAILY, (Reported) Oxybutynin Chloride 15 Mg Tab.er.24, 15 MG PO DAILY, (Reported) Pantoprazole Sodium 40 Mg Tablet.dr, 40 MG PO DAILY, (Reported) Pravastatin Sodium 20 Mg Tablet, 20 MG PO DAILY, (Reported) Saxagliptin HCl 5 Mg Tablet, 5 MG PO DAILY, (Reported) Ubidecarenone 100 Mg Capsule, 100 MG PO HS, (Reported) Physical Exam-Cardiology Physical Exam Vital Signs/I&O Vital Sign - Last 12Hours 03/19/17 03/19/17 03/19/17 03/19/17 00:26 00:30 01:00 01:00 Temp 97.1 Pulse 50 53 56 57 Resp 18 7 14 B/P (MAP) 197/89 199/100 146/79 Pulse Ox 97 93 92 O2 Delivery Room Air Room Air Room Air O2 Flow Rate 2.00 03/19/17 03/19/17 03/19/17 03/19/17 02:00 03:00 04:00 04:00 Pulse 53 53 50 Resp 15 17 16 B/P (MAP) 164/83 127/67 121/68 Pulse Ox 91 93 93 96 O2 Delivery Room Air Room Air Room Air Room Air 03/19/17 03/19/17 03/19/17 03/19/17 05:00 06:00 07:00 08:00 Pulse 51 55 52 Resp 12 11 B/P (MAP) 133/76 135/71 Pulse Ox 94 93 98 O2 Delivery Room Air Room Air Room Air 03/19/17 12:00 Pulse Ox 98 O2 Delivery Room Air Capillary Refill : Less Than 3 Seconds Constitutional: No appears stated age, No AAO x 3, No apparent distress, No PERRL, No well-developed, No well-nourished, No other HEENT: No PERRL, No normal ENT inspection, No TMs normal, No pharynx normal, No scleral icterus (R), No scleral icterus (L), No pale conjunctivae (R), No pale conjunctivae (L), No photophobia, No TM abnormal (R), No TM abnormal (L), No pharyngeal erythema, No tonsillar exudate, No other, No discharge, No EOMI, No hearing is well preserved, No hard of hearing, No oral hygience is good, No ulceration, No xanthelasmas are seen Neck: No non-tender, No full range of motion, No supple, No normal inspection, No carotid bruit, No limited range of motion, No lymphadenopathy (R), No lymphadenopathy (L), No tender lateral, No tender midline, No thyromegaly, No other, No carotid pulses are 2 + bilaterally, No with good upstrokes Respiratory: No accessory muscle use, No respiratory distress, No chest tender , No chest expansion is symmetric, No chest is bilaterally symmetric, No lungs clear to percussion, No lungs clear to auscultation, No crackles, No rhonchi, No rales, No stridor, No wheezing, No pleural rub, No other Cardiovascular: regular rate-rhythm, No irregularly irregular, No extra beats, No parasternal heave is noted, No JVD, No edema, No bradycardia, No tachycardia , No point of maximal impulse, No cardiac thrills are palpable, S1 and S2, No gallop/S3, No gallop/S4, No diastolic murmur, No systolic murmur, No friction rub, No click, No other Gastrointestinal: No tender, No soft, No round, No distended, No pulsatile mass , No organomegaly, No guarding, No rebound, No tenderness, No hernia, No mass, No audible bowel sounds, No abnormal bowel sounds, No abdominal bruits, No spleenomegaly, No other Rectal: deferred Extremities: No normal range of motion, No non-tender, No normal inspection, No pedal edema, No calf tenderness, No normal capillary refill, No pelvis stable , No calf tenderness, No inflammation, No pedal edema, No slow capillary refill , No swelling, No other, No abrasion, No clubbing, No cyanosis, No ecchymosis, No laceration, No no lower extremity edema bilateral, No significant edema, No tenderness, No wound Neurologic/Psychiatric: No snag grinder II-XII nml as tested, No no motor/sensory deficits, No alert, No normal mood/affect, No oriented x 3, No abnormal cerebellar tests, No abnormal snag grinder II-XII, No abnormal gait, No aphasia, No EOM palsy, No facial droop, No motor weakness, No sensory deficit, No depressed affect, No disoriented x 3, No other, No grossly intact, No power is 5/5 both on sides Skin: No normal color, No warm/dry, No cyanosis, No cool, No diaphoresis, No damp, No ecchymosis, No jaundice, No mottled, No pallor, No rash, No tattoos/ piercings, No ulcerations, No rash on exposed areas, No ulcerations on exposed areas, No other Data Review Labs Laboratory Tests 03/18/17 19:30: White Blood Count 5.0, Red Blood Count 4.20L, Hemoglobin 13.3, Hematocrit 39L, Mean Corpuscular Volume 94, Mean Corpuscular Hemoglobin 32, Mean Corpuscular Hemoglobin Concent 34, Red Cell Distribution Width 13.6, Platelet Count 140, Mean Platelet Volume 11.6H, Neutrophils (%) (Auto) 39L, Lymphocytes (%) (Auto) 40, Monocytes (%) (Auto) 19H, Eosinophils (%) (Auto) 2, Basophils (%) (Auto) 0, Neutrophils # (Auto) 1.9, Lymphocytes # (Auto) 2.0, Monocytes # (Auto) 1.0, Eosinophils # (Auto) 0.1, Basophils # (Auto) 0.0, Prothrombin Time 15.0H, INR Comment 1.2, Activated Partial Thromboplast Time 31, Sodium Level 141, Potassium Level 3.5L, Chloride Level 108H, Carbon Dioxide Level 23, Anion Gap 10 , Blood Urea Nitrogen 13, Creatinine 0.84, Estimat Glomerular Filtration Rate > 60, BUN/Creatinine Ratio 15, Glucose Level 105, Calcium Level 9.1, Magnesium Level 2.1, Total Bilirubin 0.8, Aspartate Amino Transf (AST/SGOT) 19, Alanine Aminotransferase (ALT/SGPT) 18, Alkaline Phosphatase 40, Total Creatine Kinase 92, Creatine Kinase MB 1.2, Troponin I < 0.30, B-Type Natriuretic Peptide 133.2H , Total Protein 6.6, Albumin 3.9, Amylase Level 50, Lipase 21 03/19/17 04:25: White Blood Count 4.5, Red Blood Count 4.10L, Hemoglobin 12.8L, Hematocrit 39L, Mean Corpuscular Volume 94, Mean Corpuscular Hemoglobin 31, Mean Corpuscular Hemoglobin Concent 33, Red Cell Distribution Width 13.5, Platelet Count 136, Mean Platelet Volume 11.9H, Neutrophils (%) (Auto) 42, Lymphocytes (%) (Auto) 38 , Monocytes (%) (Auto) 17H, Eosinophils (%) (Auto) 3, Basophils (%) (Auto) 0, Neutrophils # (Auto) 1.9, Lymphocytes # (Auto) 1.7, Monocytes # (Auto) 0.8, Eosinophils # (Auto) 0.1, Basophils # (Auto) 0.0, Sodium Level 142, Potassium Level 3.8, Chloride Level 111H, Carbon Dioxide Level 22, Anion Gap 9, Blood Urea Nitrogen 11, Creatinine 0.78, Estimat Glomerular Filtration Rate > 60, BUN/ Creatinine Ratio 14, Glucose Level 89, Calcium Level 8.6, Magnesium Level 2.0, Total Bilirubin 0.7, Aspartate Amino Transf (AST/SGOT) 19, Alanine Aminotransferase (ALT/SGPT) 19, Alkaline Phosphatase 34L, Troponin I < 0.30, Total Protein 5.9L, Albumin 3.5, Phosphorus Level 2.7, Myoglobin 76.7, Triglycerides Level 123, Cholesterol Level 157, LDL Cholesterol Direct 110, VLDL Cholesterol 25, HDL Cholesterol 33L 03/19/17 11:02: Glucometer 86 ECG Impression ECG Initial ECG Rhythm: Normal Sinus A/P-Cardiology Assessment/Admission Diagnosis Chest pain, dizziness, hypertension urgency Plan Acute coronary syndrome has been ruled out with negative EKG and serial troponins. MYOCARDIAL SPECT IMAGING 02/28/17--NO SIGNIFICANT ISCHEMIA OR INFARCTION, NORMAL EF OF 58% WITH NORMAL WALL MOTION ECHOCARDIOGRAM 03/09/17- WALL THICKNESS IS INCREASED, EF 60-65%, NO WALL MOTION ABNORMALITIES, MILD MITRAL REGURG. Hypertension urgency: He was kept on nitroglycerin infusion overnight. Systolic blood pressure is 160 mmHg when I saw the patient. We'll start him on all his home medications. He may be discharged today but will continue to take blood pressure at home. If it is goes over again 200 mmHg he will seek immediate medical attention. He will call Dr. Culver's office tomorrow for an early appointment. Atrial fibrillation: Continue Eliquis. His heart rate was in the 50s, therefore , I have decreased his dose of metoprolol from 150 mg a day to 100 mg a day. The patient can be discharged today to follow-up with Dr. Culver early next week. Thank you for your consultation. Please call me if you have any questions. Tyler Soria MD, FACP, FACC, FSCAI, FHRS, CCDS Interventional Cardiology Cardiac Electrophysiology Vascular Medicine and Endovascular Interventions Clinical Quality Measures AMI/AHF: ASA po Prior to arrival: No DVT/VTE Risk/Contraindication: Risk Factor Score Per Nursin RFS Level Per Nursing on Admit: 2=Moderate Kwadwo SORIA MD Mar 19, 2017 12:26 pm
[2017-03-19] MEDS ORDERED: PATIENT MAY USE OWN MEDS, ALL MC SCH (14:15)
[2017-03-19] MEDS ORDERED: FINASTERIDE (PROSCAR) 5 MG TAB PO SCH (18:00)
[2017-03-19] MEDS ORDERED: ALFUZOSIN HCL 10 MG TAB (UROXATRAL) PO SCH (18:00)
[2017-03-19] MEDS ORDERED: PRAVASTATIN 20 MG (PRAVACHOL) TAB NON-FORMULARY PO SCH (21:00)
[2017-03-19] MEDS ORDERED: TAMSULOSIN HCL PO SCH (21:00)
[2017-03-19] MEDS ORDERED: [UNRECOGNIZED DRUG - OTHER] PO SCH (21:00)
[2017-03-19] MEDS ORDERED: APIXABAN 5 MG (ELIQUIS) TABLET PO SCH (21:00)
[2017-03-19] MEDS ORDERED: DUTASTERIDE PO SCH ×2 (21:00)
[2017-03-19] MEDS ORDERED: TAMSULOSIN PO SCH (21:00)
[2017-03-20] MEDS ORDERED: PANTOPRAZOLE 40 MG (PROTONIX) TAB PO SCH (07:00)
[2017-03-20] MEDS ORDERED: sitaGLIPtin 50 MG (NON-FORMULARY) TAB PO SCH ×2 (07:00)
[2017-03-20] MEDS ORDERED: OXYBUTYNIN 15 MG PO SCH (09:00)
[2017-03-20] MEDS ORDERED: NON-FORMULARY MEDICATION 1 EA EA (Pravastatin Sodium 20 MG) PO SCH (09:00)
[2017-03-20] MEDS ORDERED: ONGLYZA 5 MG TAB PO SCH (09:00)
[2017-03-20] MEDS ORDERED: OXYBUTYNIN (DITROPAN) 5 MG TAB PO SCH (09:00)
[2017-03-20] MEDS ORDERED: SIMvastatin 10 MG (ZOCOR) TAB PO SCH (21:00)
--- NOTE | 2017-03-24 14:26 | Physician Query-Final Dx ---
KARON WHEELER 03/24/17 1426: Final Diagnosis Give Final Diagnosis Please give Final Diagnosis JANEY NAQVI DO 03/24/17 1604: Final Diagnosis Give Final Diagnosis HTN urgency KARON WHEELER Mar 24, 2017 14:26 JANEY NAQVI DO Mar 24, 2017 16:04
== END 2017-03-19 13:07 | disposition home or self-care (01) ==
LOC: EDUNIT# 19:21 → ER 19:22 → UNDOADMOB 21:15 → ICU 21:15 → ER 22:03 → UNDOADMOB 22:15 → ICU 22:15 → UNDODISOB 03-19 15:55
PROVIDERS: ADMIT Internal Medicine; ATTEND Family Medicine
DX: R07.9 Chest pain, unspecified (principal); I10 Essential (primary) hypertension; I48.2 Chronic atrial fibrillation; N40.0 Benign prostatic hyperplasia without lower urinary tract symptoms; E78.5 Hyperlipidemia, unspecified; I51.7 Cardiomegaly; I25.10 Atherosclerotic heart disease of native coronary artery without angina pectoris; K21.9 Gastro-esophageal reflux disease without esophagitis; E11.9 Type 2 diabetes mellitus without complications; Z79.01 Long term (current) use of anticoagulants; Z79.899 Other long term (current) drug therapy; Z95.1 Presence of aortocoronary bypass graft; Z95.5 Presence of coronary angioplasty implant and graft; Z87.891 Personal history of nicotine dependence; Z85.46 Personal history of malignant neoplasm of prostate; Z86.73 Personal history of transient ischemic attack (TIA), and cerebral infarction without residual deficits
CPT/HCPCS: 36415; 71010; 80053; 80061; 82150; 82550; 82553; 82962; 83690; 83735; 83874; 83880; 84100; 84484; 85025; 85610; 85730; 93005; 93041

== ENCOUNTER 2017-06-12 10:43 | Day surgery (SDC) | payer MEDICARE, BC ==
[2017-06-12] VITALS (12 sets, daily range): BP systolic 149–186; BP diastolic 83–112
[~2017-06-12] VITALS: Ht 182.9 cm; Wt 117.7 kg
[~2017-06-12 10:43] MED LIST changes: +CHOL10007 PO; +CYAN10007 PO; +DILT120C53 PO; +METO100T12 PO; -METO100T2 PO; +MULT-1029 PO; +OXYB15TA PO; +UBID100C17 PO
[2017-06-12] MEDS ORDERED: LIDOCAINE 1% INJ 50 ML (XYLOCAINE) VIAL ONE (10:48)
[2017-06-12] MEDS ORDERED: NS IV 1000 ML 1,000 ML ONE (10:48)
[2017-06-12] MEDS ORDERED: HEParin (CATH LAB) 1,000 ML IV ONE (10:48)
[2017-06-12] MEDS ORDERED: NS IV 1000 ML 1,000 ML IV SCH ×2 (10:57→15:17)
[2017-06-12] MEDS ORDERED: BACITRACIN INJECTION 50,000 UNIT, SODIUM CHLORIDE 0.9% IRRIGATIO 500 ML IR ONE ×2 (11:00)
[2017-06-12] MEDS ORDERED: ceFAZolin 1,000 MG (ANCEF) VIAL IV ONE (11:00)
[2017-06-12] MEDS ORDERED: ceFAZolin 1,000 MG (ANCEF) VIAL ONE (11:06)
[2017-06-12] MEDS ORDERED: NS (IVPB) 50 ML ONE (11:07)
[2017-06-12] MEDS ORDERED: NITR0.4T39 SL (11:37)
[2017-06-12] MEDS ORDERED: METO100T12 PO (11:37)
[2017-06-12 12:11] LABS: MEAN PLATELET VOLUME 11.7 FL (7.4-10.4); RED BLOOD COUNT 4.46 10^6/uL (4.35-5.85); RED CELL DISTRIBUTION WIDTH 13.8 % (10.0-14.5); WHITE BLOOD COUNT 4.5 10^3/uL (4.3-11.0)
[2017-06-12 12:23] LABS: INR 1.2 (0.8-1.4); PROTHROMBIN TIME PATIENT 14.9 SEC (12.2-14.7)
[2017-06-12 12:33] LABS: ALANINE AMINOTRANSFERASE 20 U/L (0-55); ALBUMIN 4.1 GM/DL (3.2-4.5); ANION GAP 8 MMOL/L (5-14); ASPARTATE AMINO TRANSFERASE 19 U/L (5-34); BILIRUBIN,TOTAL 0.8 MG/DL (0.1-1.0); BLOOD UREA NITROGEN 9 MG/DL (7-18); BUN/CREATININE RATIO 11; CALCIUM 9.2 MG/DL (8.5-10.1); CARBON DIOXIDE 25 MMOL/L (21-32); CHLORIDE 107 MMOL/L (98-107); CREATININE SERUM 0.84 MG/DL (0.60-1.30); GFR ESTIMATED > 60; GLUCOSE 103 MG/DL (70-105); POTASSIUM 4.1 MMOL/L (3.6-5.0); SODIUM 140 MMOL/L (135-145); TOTAL PROTEIN 6.9 GM/DL (6.4-8.2)
[2017-06-12] MEDS ORDERED: fentaNYL INJECTION 100 MCG/2 ML AMP ONE ×2 (12:40→14:56)
[2017-06-12] MEDS ORDERED: MIDAZOLAM 5 MG/5 ML (VERSED) VIAL ONE (12:40)
--- OUTSIDE RECORDS SUMMARY | 2017-06-12 12:57 | XMS REPORT | Continuity of Care Document ---
Author Author [facility] Organization [facility] Address Unknown Phone Unavailable Allergies Active Description Code Type Severity Reaction Onset Reported/Identified Relationship to Patient Clinical Status Yes UNKNOWN ANTIBIOTIC UNKNOWN ANTIBIOTIC Mild N/A 09/06/2007 Yes No Known Drug Allergies [id number] Drug Allergy Unknown N/A 09/06/2007 Yes ciprofloxacin [id number] Drug Allergy Unknown HALLUCINATIONS 01/29/2016 Yes clonidine [id number] Drug Allergy Unknown HALLUCINATIONS 01/29/2016 Yes ciprofloxacin [id number] Drug Allergy Mild HALLUCINATIONS 02/28/2017 Yes clonidine [id number] Drug Allergy Mild HALLUCINATIONS 02/28/2017 Yes AMINODORONE AMINODORONE Unknown N/A 03/18/2017 Medications There is no data. Problems Date Dx Coded Attending Type Code Diagnosis Diagnosed By 05/25/1517 RYAN LANDON MD Ot M54.5 LOW BACK PAIN 05/25/1517 RYAN LANDON MD Ot R53.1 WEAKNESS 10/13/2010 Ot 271.3 DISACCHARIDASE DEF/MALAB 10/13/2010 Ot 272.4 HYPERLIPIDEMIA NEC/NOS 10/13/2010 Ot 413.9 ANGINA PECTORIS NEC/NOS 10/13/2010 Ot 414.01 CORONARY ATHEROSCLEROSIS OF [place] CORON 10/13/2010 Ot 424.0 MITRAL VALVE DISORDER 10/13/2010 Ot 426.3 LEFT BB BLOCK NEC 10/13/2010 Ot V12.54 PERSONAL HX OF TIA, CEREBRAL INFARCTION 10/13/2010 Ot V45.81 AORTOCORONARY BYPASS 10/13/2010 Ot V58.66 LONG-TERM ( CURRENT) USE OF ASPIRIN 10/13/2010 Ot V58.69 OTH MED,LT, CURRENT USE 12/15/2010 Ot V45.82 PERCUTANEOUS TRANSLUM CORON ANGIOPLASTY 12/15/2010 Ot V57.89 REHABILITATION PROC NEC 05/16/2011 Ot 250.00 DIAB DAVID WO COMPL, TYPE II OR UNSPEC TY 05/16/2011 Ot 401.9 HYPERTENSION NOS 05/16/2011 Ot 414.00 CORON ATHEROSCLER NOS TYPE VESSEL, NATIV 05/16/2011 Ot 592.1 CALCULUS OF URETER 05/16/2011 Ot 791.9 ABN URINE FINDINGS NEC 05/16/2011 Ot V45.81 AORTOCORONARY BYPASS 05/16/2011 Ot V58.66 LONG-TERM ( CURRENT) USE OF ASPIRIN 05/16/2011 Ot V58.69 OTH MED,LT, CURRENT USE 06/08/2011 Ot 250.00 DIAB DAVID WO COMPL, TYPE II OR UNSPEC TY 06/08/2011 Ot 592.1 CALCULUS OF URETER 06/08/2011 Ot V04.81 ND FOR PROPHYLACTIC VACCIN AND INOCULATI 10/27/2012 TOSHA BROOKS MD Ot 601.9 PROSTATITIS NOS 10/27/2012 TOSHA BROOKS MD Ot 788.1 DYSURIA 11/16/2012 RYAN LANDON MD Ot 250.00 DIAB DAVID WO COMPL, TYPE II OR UNSPEC TY 11/16/2012 RYAN LANDON MD Ot 272.0 PURE HYPERCHOLESTEROLEM 11/16/2012 RYAN LANDON MD Ot 401.9 HYPERTENSION NOS 11/16/2012 RYAN LANDON MD Ot 414.00 CORON ATHEROSCLER NOS TYPE VESSEL, NATIV 11/16/2012 RYAN LANDON MD Ot 530.81 ESOPHAGEAL REFLUX 11/16/2012 RYAN LANDON MD Ot 592.0 CALCULUS OF KIDNEY 11/16/2012 RYAN LANDON MD Ot 782.3 EDEMA 11/16/2012 RYAN LANDON MD Ot 786.59 CHEST PAIN NEC 11/16/2012 RYAN LANDON MD Ot V15.82 HISTORY OF TOBACCO USE 11/16/2012 RYAN LANDON MD Ot V45.81 AORTOCORONARY BYPASS 11/16/2012 RYAN LANDON MD Ot V45.82 PERCUTANEOUS TRANSLUM CORON ANGIOPLASTY 11/23/2012 SAMUEL WOLF FACC, ALI FACP CCDS Ot 271.3 DISACCHARIDASE DEF/MALAB 11/23/2012 SAMUEL WOLF FACC, ALI FACP CCDS Ot 272.4 HYPERLIPIDEMIA NEC/NOS 11/23/2012 SAMUEL WOLF FACC, ALI FACP CCDS Ot 414.01 CORONARY ATHEROSCLEROSIS OF [place] CORON 11/23/2012 SAMUEL WOLF FACC, ALI FACP CCDS Ot 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 11/23/2012 SAMUEL WOLF FACC, MICHAEL FACP CCDS Ot 414.4 CORONARY ATHEROSCLEROSIS DUE TO CALCIFIE 11/23/2012 MICHAEL BAKER MD, FACC FACP CCDS Ot 426.11 ATRIOVENT BLOCK-1ST DEGR 11/23/2012 MICHAEL BAKER MD, FACC FACP CCDS Ot 426.2 LEFT BB HEMIBLOCK 11/23/2012 MICHAEL BAKER MD, FACC FACP CCDS Ot 428.9 HEART FAILURE NOS 11/23/2012 MICHAEL BAKER MD, FACC FACP CCDS Ot 433.10 CAROTID ARTERY OCCLUSION W O CEREBRAL IN 11/23/2012 MICHAEL BAKER MD, FACC FACP CCDS Ot 786.59 CHEST PAIN NEC 11/23/2012 MICHAEL BAKER MD, FACC FACP CCDS Ot V12.54 PERSONAL HX OF TIA, CEREBRAL INFARCTION 11/23/2012 MICHAEL BAKER MD, FACC FACP CCDS Ot V13.01 PERSONAL HISTORY OF URINARY CALCULI 11/23/2012 MICHAEL BAKER MD, FACC FACP CCDS Ot V45.81 AORTOCORONARY BYPASS 11/23/2012 MICHAEL BAKER MD, FACC FACP CCDS Ot V45.82 PERCUTANEOUS TRANSLUM CORON ANGIOPLASTY 11/23/2012 MICHAEL BAKER MD, FACC FACP CCDS Ot V58.63 LONG-TERM(CURRENT)USE OF ANTIPLATELET/AN 11/23/2012 MICHAEL BAKER MD, FACC FACP CCDS Ot V58.66 LONG-TERM (CURRENT) USE OF ASPIRIN 11/23/2012 MICHAEL BAKER MD, FACC FACP CCDS Ot V58.69 OT MED,LT,CURRENT USE 01/11/2013 RYAN LANDON MD Ot 066.1 TICK-BORNE FEVER 01/11/2013 RYAN LANDON MD Ot 250.00 DIAB DAVID WO COMPL, TYPE II OR UNSPEC TY 01/11/2013 RYAN LANDON MD Ot 275.2 DIS MAGNESIUM METABOLISM 01/11/2013 RYAN LANDON MD Ot 276.8 HYPOPOTASSEMIA 01/11/2013 RYAN LANDON MD Ot 284.19 OTHER PANCYTOPENIA 01/11/2013 RYAN LANDON MD Ot 287.5 THROMBOCYTOPENIA NOS 01/11/2013 BARBI MD, RYAN A Ot 401.9 HYPERTENSION NOS 01/11/2013 RYAN LANDON MD Ot 584.9 ACUTE RENAL FAILURE, UNSPECIFIED 01/11/2013 RYAN LANDON MD Ot 780.60 FEVER, UNSPECIFIED 01/11/2013 RYAN LANDON MD Ot 780.79 OTH MALAISE FATIGUE 01/11/2013 RYAN LANDON MD Ot 787.91 DIARRHEA 07/09/2013 ANGELITA DUDLEY FILTER TANK TENDER HELPER Ot 785.1 PALPITATIONS 08/20/2013 JAVIER BELLO DO Ot 531.90 STOMACH ULCER NOS 10/08/2013 SAMUEL WOLF FACC, MICHAEL FACP CCDS Ot 271.3 DISACCHARIDASE DEF/MALAB 10/08/2013 SAMUEL WOLF FACC, ALI FACP CCDS Ot 272.4 HYPERLIPIDEMIA NEC/NOS 10/08/2013 SAMUEL WOLF FACC, ALI FACP CCDS Ot 278.00 OBESITY, NOS 10/08/2013 SAMUEL WOLF FACC, ALI FACP CCDS Ot 414.01 CORONARY ATHEROSCLEROSIS OF [place] CORON 10/08/2013 MICHAEL BAKER MD, FACC FACP CCDS Ot 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 10/08/2013 SAMUEL WOLF FACC, MICHAEL FACP CCDS Ot 786.50 CHEST PAIN NOS 10/08/2013 SAMUEL WOLF FACC, MICHAEL FACP CCDS Ot V12.54 PERSONAL HX OF TIA, CEREBRAL INFARCTION 10/08/2013 SAMUEL WOLF FACC, MICHAEL FACP CCDS Ot V45.81 AORTOCORONARY BYPASS 10/08/2013 MICHAEL BAKER MD, FACC FACP CCDS Ot V45.82 PERCUTANEOUS TRANSLUM CORON ANGIOPLASTY 10/08/2013 MICHAEL BAKER MD, FACC FACP CCDS Ot V58.63 LONG-TERM(CURRENT)USE OF ANTIPLATELET/AN 10/08/2013 SAMUEL WOLF FACC ALI FACP CCDS Ot V58.69 OTH MED,LT,CURRENT USE 10/08/2013 SAMUEL WOLF FACC ALI FACP CCDS Ot V85.36 BODY MASS INDEX 36.0-36.9, ADULT 02/07/2014 [place] ANDERSON APRN Ot 682.6 CELLULITIS OF LEG 02/07/2014 [place] ANDERSON APRN Ot 916.5 INSECT BITE HIP/LEG-INF 02/07/2014 [place] ANDERSON APRN Ot E906.4 NONVENOM ARTHROPOD BITE 04/23/2014 RYAN LANDON MD Ot 250.00 DIAB DAVID WO COMPL, TYPE II OR UNSPEC TY 04/23/2014 RYAN LANDON MD Ot 272.0 PURE HYPERCHOLESTEROLEM 04/23/2014 RYAN LANDON MD Ot 276.51 DEHYDRATION 04/23/2014 RYAN LANDON MD Ot 300.00 ANXIETY STATE NOS 04/23/2014 RYAN LANDON MD Ot 311 DEPRESSIVE DISORDER NEC 04/23/2014 RYAN LANDON MD Ot 389.9 HEARING LOSS NOS 04/23/2014 RYAN LANDON MD Ot 401.9 HYPERTENSION NOS 04/23/2014 RYAN LANDON MD Ot 412 OLD MYOCARDIAL INFARCT 04/23/2014 RYAN LANDON MD Ot 414.01 CORONARY ATHEROSCLEROSIS OF [place] CORON 04/23/2014 RYAN LANDON MD Ot 530.81 ESOPHAGEAL REFLUX 04/23/2014 RYAN LANDON MD Ot 599.0 URIN TRACT INFECTION NOS 04/23/2014 RYAN LANDON MD Ot 729.1 MYALGIA AND MYOSITIS NOS 04/23/2014 RYAN LANDON MD Ot 780.57 UNSPECIFIED SLEEP APNEA 04/23/2014 RYAN LANDON MD Ot 780.79 OTH MALAISE FATIGUE 04/23/2014 RYAN LANDON MD Ot 782.3 EDEMA 04/23/2014 RYAN LANDON MD Ot 790.95 ELEVATED C-REACTIVE PROTEIN (CRP) 04/23/2014 RYAN LANDON MD Ot V12.54 PERSONAL HX OF TIA, CEREBRAL INFARCTION 04/23/2014 RYAN LANDON MD Ot V13.01 PERSONAL HISTORY OF URINARY CALCULI 04/23/2014 RYAN LANDON MD Ot V15.82 HISTORY OF TOBACCO USE 04/23/2014 RYAN LANDON MD Ot V45.81 AORTOCORONARY BYPASS 09/18/2014 Ot 185 09/18/2014 Ot 592.0 09/18/2014 Ot 185 09/18/2014 Ot 592.0 09/24/2014 Ot 785.1 10/01/2014 Ot 785.1 10/01/2014 JAVIER BELLO DO Ot V72.84 10/01/2014 BARBI WOLF, RYAN A Ot 268.9 10/01/2014 BARBI WOLF, RYAN A Ot 515 10/01/2014 BARBI WOLF, RYAN A Ot 733.90 10/01/2014 BARBI WOLF, RYAN A Ot 786.52 10/01/2014 BARBI WOLF, RYAN A Ot V45.82 10/01/2014 Ot 185 10/01/2014 Ot 592.0 10/01/2014 CHETNA WOLF, PERNELL E Ot 185 10/01/2014 CHAPIS WOLF, ANDREW A Ot 185 10/01/2014 CHAPIS WOLF, ANDREW A Ot V72.81 10/01/2014 CHAPIS WOLF, ANDREW A Ot V74.8 10/01/2014 CHAPIS WOLF, ANDREW A Ot 185 MALIGN NEOPL PROSTATE 10/01/2014 CHAPIS WOLF, ANDREW A Ot 250.00 DIAB DAVID WO COMPL, TYPE II OR UNSPEC TY 10/01/2014 CHAPIS WOLF, ANDREW A Ot 401.9 HYPERTENSION NOS 10/01/2014 CHAPIS WOLF, ANDREW A Ot 414.00 CORON ATHEROSCLER NOS TYPE VESSEL, NATIV 10/01/2014 CHAPIS WOLF, ANDREW A Ot V45.81 AORTOCORONARY BYPASS 10/22/2014 CHETNA WOLF, PERNELL E Ot 185 10/23/2014 CHETNA WOLF, PERNELL E Ot 185 10/28/2014 CHAPIS WOLF, ANDREW A Ot 185 10/28/2014 CHAPIS WOLF, ANDREW A Ot V72.81 10/28/2014 CHAPIS WOLF, ANDREW A Ot V74.8 11/14/2014 CHAPIS WOLF, ANDREW A Ot 185 11/14/2014 CHAPIS WOLF, ANDREW A Ot V72.81 11/14/2014 CHAPIS WOLF, ANDREW A Ot V74.8 11/19/2014 DAIJA WOLF, ARIK Rogers Ot 250.00 DIAB DAVID WO COMPL, TYPE II OR UNSPEC TY 11/19/2014 ADIJA WOLF, ARIK Rogers Ot 426.11 ATRIOVENT BLOCK-1ST DEGR 11/19/2014 DAIJA WOLF, ARIK Rogers Ot 530.81 ESOPHAGEAL REFLUX 11/19/2014 DAIJA WOLF, ARIK Rogers Ot 564.00 UNSPEC CONSTIPATION 11/19/2014 ARIK CHOE MD Ot 785.0 TACHYCARDIA NOS 11/19/2014 ARIK CHOE MD Ot V12.54 PERSONAL HX OF TIA, CEREBRAL INFARCTION 11/19/2014 ARIK CHOE MD Ot V45.81 AORTOCORONARY BYPASS 11/19/2014 ARIK CHOE MD Ot V45.82 PERCUTANEOUS TRANSLUM CORON ANGIOPLASTY 12/04/2014 PERNELL BASILIO MD Ot 185 MALIGN NEOPL PROSTATE 12/04/2014 PERNELL BASILIO MD, Ot V58.0 ENCOUNTER FOR RADIOTHERAPY 12/30/2014 RYAN LANDON MD Ot 268.9 12/30/2014 RYAN LANDON MD Ot 515 12/30/2014 RYAN LANDON MD Ot 733.90 12/30/2014 RYAN LANDON MD Ot 786.52 12/30/2014 RYAN LANDON MD Ot V45.82 02/23/2015 TIN SOTO DO Ot 414.00 02/23/2015 TIN SOTO DO Ot 786.09 02/26/2015 TIN SOTO DO Ot 414.00 02/26/2015 TIN SOTO DO Ot 786.09 02/27/2015 JUAN J ALEMAN MD Ot 250.00 DIAB DAVID WO COMPL, TYPE II OR UNSPEC TY 02/27/2015 JUAN J ALEMAN MD Ot 272.4 HYPERLIPIDEMIA NEC/NOS 02/27/2015 JUAN J ALEMAN MD Ot 401.9 HYPERTENSION NOS 02/27/2015 JUAN J ALEMAN MD Ot 414.00 CORON ATHEROSCLER NOS TYPE VESSEL, NATIV 02/27/2015 JUAN J ALEMAN MD Ot 426.2 LEFT BB HEMIBLOCK 02/27/2015 JUAN J ALEMAN MD Ot 427.31 ATRIAL FIBRILLATION 02/27/2015 JUAN J ALEMAN MD Ot 433.10 CAROTID ARTERY OCCLUSION W O CEREBRAL IN 02/27/2015 JUAN J ALEMAN MD Ot 530.81 ESOPHAGEAL REFLUX 02/27/2015 JUAN J ALEMAN MD Ot 786.50 CHEST PAIN NOS 02/27/2015 JUAN J ALEMAN MD Ot V04.81 ND FOR PROPHYLACTIC VACCIN AND INOCULATI 02/27/2015 JUAN J ALEMAN MD Ot V45.81 AORTOCORONARY BYPASS 02/27/2015 JUAN J ALEMAN MD Ot V45.82 PERCUTANEOUS TRANSLUM CORON ANGIOPLASTY 02/27/2015 JUAN J ALEMAN MD Ot 250.00 02/27/2015 JUAN J ALEMAN MD Ot 272.4 02/27/2015 JUAN J ALEMAN MD Ot 401.9 02/27/2015 JUAN J ALEMAN MD Ot 414.00 02/27/2015 JUAN J ALEMAN MD Ot 426.2 02/27/2015 JUAN J ALEMAN MD Ot 427.31 02/27/2015 JUAN J ALEMAN MD Ot 433.10 02/27/2015 JUAN J ALEMAN MD Ot 530.81 02/27/2015 JUAN J ALEMAN MD Ot 786.50 02/27/2015 JUAN J ALEMAN MD Ot V04.81 02/27/2015 JUAN J ALEMAN MD Ot V45.81 02/27/2015 JUAN J ALEMAN MD Ot V45.82 03/19/2015 TIN SOTO DO Ot 327.23 OBSTRUCTIVE SLEEP APNEA (ADULT) (PEDIATR 03/24/2015 Ot 396.3 03/24/2015 Ot 397.0 03/24/2015 Ot 414.00 03/24/2015 Ot 786.09 03/24/2015 Ot V45.81 03/24/2015 Ot 599.0 03/24/2015 Ot V13.01 03/24/2015 Ot 562.10 03/24/2015 Ot 592.0 03/24/2015 Ot 594.1 03/24/2015 Ot 599.0 03/24/2015 Ot 140.0 03/24/2015 Ot 272.4 03/24/2015 Ot 401.9 03/24/2015 Ot 413.9 03/24/2015 Ot 786.09 03/24/2015 Ot 786.50 03/24/2015 Ot V45.81 03/24/2015 Ot V72.63 03/24/2015 Ot V72.81 03/24/2015 Ot 592.0 03/24/2015 Ot 592.1 03/24/2015 Ot 592.1 03/24/2015 Ot V72.63 03/24/2015 Ot V72.81 03/24/2015 Ot V72.83 03/24/2015 Ot V74.8 03/24/2015 Ot 592.1 03/24/2015 Ot V67.09 03/24/2015 Ot 786.2 03/24/2015 Ot 785.1 03/24/2015 JAVIER BELLO DO Ot V72.84 03/24/2015 BARBI WOLF, RYAN Schreiber Ot 268.9 03/24/2015 BARBI WOLF, RYAN Schreiber Ot 515 03/24/2015 BARBI WOLF, RYAN Schreiber Ot 733.90 03/24/2015 BARBI WOLF, RYAN Schreiber Ot 786.52 03/24/2015 BARBI WOLF, RYAN Schreiber Ot V45.82 03/24/2015 Ot 185 03/24/2015 Ot 592.0 03/24/2015 CHAPIS WOLF, ANDREW A Ot 185 03/24/2015 CHAPIS WOLF, ANDREW Schreiber Ot V72.81 03/24/2015 CHAPIS WOLF, ANDREW Schreiber Ot V74.8 03/24/2015 CHETNA WOLF, PERNELL E Ot 185 03/24/2015 TIN SOTO DO Ot 414.00 03/24/2015 TIN SOTO DO Ot 786.09 05/15/2015 CHETNA WOLF, PERNELL E Ot 185 06/12/2015 CHETNA WOLF, PERNELL E Ot C61 06/17/2015 CHETNA WOLF, PERNELL E Ot C61 06/19/2015 Ot 785.1 06/19/2015 JAVIER BELLO DO Ot V72.84 06/19/2015 BARBI WOLF, RYAN Schreiber Ot 268.9 06/19/2015 BARBI WOLF, RYAN Schreiber Ot 515 06/19/2015 BARBI WOLF, RYAN Schreiber Ot 733.90 06/19/2015 BARBI WOLF, RYAN Schreiber Ot 786.52 06/19/2015 BARBI WOLF, RYAN Schreiber Ot V45.82 06/19/2015 Ot 185 06/19/2015 Ot 592.0 06/19/2015 CHAPIS WOLF, ANDREW A Ot 185 06/19/2015 CHAPIS WOLF, ANDREW A Ot V72.81 06/19/2015 CHAPIS WOLF, ANDREW A Ot V74.8 06/19/2015 CHETNA WOLF, PERNELL E Ot C61 06/19/2015 SEBASTIEN MAGDALENA SUTHERLAND Ot E11.9 TYPE 2 DIABETES MELLITUS WITHOUT COMPLIC 06/19/2015 [place] MAGDALENA SUTHERLAND Ot E78.5 HYPERLIPIDEMIA, UNSPECIFIED 06/19/2015 [place] MAGDALENA SUTHERLAND Ot I10 ESSENTIAL (PRIMARY) HYPERTENSION 06/19/2015 [place] MAGDALENA SUTHERLAND Ot I25.10 ATHSCL HEART DISEASE OF [place] CORONARY 06/19/2015 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 06/19/2015 [facility], MAGDALENA Ang Ot I48.0 PAROXYSMAL ATRIAL FIBRILLATION 06/19/2015 [facility], MAGDALENA Ang Ot R07.9 CHEST PAIN, UNSPECIFIED 06/20/2015 [facility] Ot E11.9 06/20/2015 [facility] Ot E78.5 06/20/2015 [facility] Ot I10 06/20/2015 [facility] Ot I25.10 06/20/2015 [facility] Ot I44.4 06/20/2015 [facility] Ot I48.0 06/20/2015 [facility] Ot R07.9 06/30/2015 CHETNA WOLF, PERNELL E Ot C61 MALIGNANT NEOPLASM OF PROSTATE 08/19/2015 Ot 599.0 08/19/2015 Ot V13.01 08/19/2015 Ot 562.10 08/19/2015 Ot 592.0 08/19/2015 Ot 594.1 08/19/2015 Ot 599.0 08/19/2015 Ot 140.0 08/19/2015 Ot 272.4 08/19/2015 Ot 401.9 08/19/2015 Ot 413.9 08/19/2015 Ot 786.09 08/19/2015 Ot 786.50 08/19/2015 Ot V45.81 08/19/2015 Ot V72.63 08/19/2015 Ot V72.81 08/19/2015 Ot 592.0 08/19/2015 Ot 592.1 08/19/2015 Ot 592.1 08/19/2015 Ot V72.63 08/19/2015 Ot V72.81 08/19/2015 Ot V72.83 08/19/2015 Ot V74.8 08/19/2015 Ot 592.1 08/19/2015 Ot V67.09 08/19/2015 Ot 786.2 08/19/2015 Ot 785.1 08/19/2015 JAVIER BELLO DO Ot V72.84 08/19/2015 BARBI WOLF, RYAN A Ot 268.9 08/19/2015 BARBI WOLF, RYAN A Ot 515 08/19/2015 BARBI WOLF, RYAN A Ot 733.90 08/19/2015 BARBI WOLF, RYAN A Ot 786.52 08/19/2015 BARBI WOLF, RYAN A Ot V45.82 08/19/2015 Ot 185 08/19/2015 Ot 592.0 08/19/2015 CHAPIS WOLF, ANDREW Schreiber Ot 185 08/19/2015 CHAPIS WOLF, ANDREW Schreiber Ot V72.81 08/19/2015 CHAPIS WOLF, ANDREW Schreiber Ot V74.8 08/19/2015 TIN SOTO DO Ot 414.00 08/19/2015 TIN SOTO DO Ot 786.09 08/19/2015 CHETNA WOLF, PERNELL Fermin Ot C61 10/28/2015 SE[facility]STIEN [facility]LANDMAGDALENA Ashia Ot N13.2 HYDRONEPHROSIS WITH RENAL AND URETERAL C 10/28/2015 MAGDALENA CROWE DO Ot Z85.46 PERSONAL HISTORY OF MALIGNANT NEOPLASM O 10/28/2015 SEBASTIENMary SUTHERLAND MAGDALENA Ang Ot Z87.891 PERSONAL HISTORY OF NICOTINE DEPENDENCE 10/28/2015 Ot 140.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 10/28/2015 Ot 272.4 HYPERLIPIDEMIA NEC/NOS 10/28/2015 Ot 401.9 HYPERTENSION NOS 10/28/2015 Ot 413.9 ANGINA PECTORIS NEC/NOS 10/28/2015 Ot 786.09 RESPIRATORY ABNORM NEC 10/28/2015 Ot 786.50 CHEST PAIN NOS 10/28/2015 Ot V45.81 AORTOCORONARY BYPASS 10/28/2015 Ot V72.63 PRE- PROCEDURAL LABORATORY EXAMINATION 10/28/2015 Ot V72.81 EXAM-PRE- OPERATIVE CARDIOVASCULAR 10/28/2015 Ot 592.0 CALCULUS OF KIDNEY 10/28/2015 Ot 592.1 CALCULUS OF URETER 10/28/2015 Ot 592.1 CALCULUS OF URETER 10/28/2015 Ot V72.63 PRE- PROCEDURAL LABORATORY EXAMINATION 10/28/2015 Ot V72.81 EXAM-PRE- OPERATIVE CARDIOVASCULAR 10/28/2015 Ot V72.83 EXAM PRE- OPERATIVE NEC 10/28/2015 Ot V74.8 SCREEN- BACTERIAL DIS NEC 10/28/2015 Ot 592.1 CALCULUS OF URETER 10/28/2015 Ot V67.09 SURGERY FOLLOW-UP, OTHER SURGERY 10/28/2015 Ot 786.2 COUGH 10/28/2015 Ot 785.1 PALPITATIONS 10/28/2015 JAVIER BELLO DO Ot V72.84 EXAM PRE-OPERATIVE NOS 10/28/2015 BARBI WOLF, RYAN Schreiber Ot 268.9 VITAMIN D DEFICIENCY NOS 10/28/2015 BARBI WOLF, RYAN Schreiber Ot 515 POSTINFLAM PULM FIBROSIS 10/28/2015 BARBI WOLF, RYAN Schreiber Ot 733.90 BONE CARTILAGE DIS NOS 10/28/2015 BARBI WOLF, RYAN Schreiber Ot 786.52 PAINFUL RESPIRATION 10/28/2015 BARBI WOLF, RYAN Schreiber Ot V45.82 PERCUTANEOUS TRANSLUM CORON ANGIOPLASTY 10/28/2015 Ot 185 MALIGN NEOPL PROSTATE 10/28/2015 Ot 592.0 CALCULUS OF KIDNEY 10/28/2015 ANDREW NATION MD Ot 185 MALIGN NEOPL PROSTATE 10/28/2015 CHAPIS WOLF, ANDREW Schreiber Ot V72.81 [id number] CARDIOVASCULAR 10/28/2015 CHAPIS WOLF, ANDREW Schreiber Ot V74.8 SCREEN-BACTERIAL DIS NEC 10/28/2015 TIN SOTO DO Ot 414.00 CORON ATHEROSCLER NOS TYPE VESSEL, NATIV 10/28/2015 TIN SOTO DO Ot 786.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 10/30/2015 Ot 272.4 HYPERLIPIDEMIA NEC/NOS 10/30/2015 Ot 401.9 HYPERTENSION NOS 10/30/2015 Ot 413.9 ANGINA PECTORIS NEC/NOS 10/30/2015 Ot 786.09 RESPIRATORY ABNORM NEC 10/30/2015 Ot 786.50 CHEST PAIN NOS 10/30/2015 Ot V45.81 AORTOCORONARY BYPASS 10/30/2015 Ot V72.63 PRE- PROCEDURAL LABORATORY EXAMINATION 10/30/2015 Ot V72.81 EXAM-PRE- OPERATIVE CARDIOVASCULAR 10/30/2015 Ot 592.0 CALCULUS OF KIDNEY 10/30/2015 Ot 592.1 CALCULUS OF URETER 10/30/2015 Ot 592.1 CALCULUS OF URETER 10/30/2015 Ot V72.63 PRE- PROCEDURAL LABORATORY EXAMINATION 10/30/2015 Ot V72.81 EXAM-PRE- OPERATIVE CARDIOVASCULAR 10/30/2015 Ot V72.83 EXAM PRE- OPERATIVE NEC 10/30/2015 Ot V74.8 SCREEN- BACTERIAL DIS NEC 10/30/2015 Ot 592.1 CALCULUS OF URETER 10/30/2015 Ot V67.09 SURGERY FOLLOW-UP, OTHER SURGERY 10/30/2015 Ot 786.2 COUGH 10/30/2015 Ot 785.1 PALPITATIONS 10/30/2015 JAVIER BELLO DO Ot V72.84 EXAM PRE-OPERATIVE NOS 10/30/2015 BARBI WOLF, RYAN Schreiber Ot 268.9 VITAMIN D DEFICIENCY NOS 10/30/2015 BARBI WOLF, RYAN Schreiber Ot 515 POSTINFLAM PULM FIBROSIS 10/30/2015 BARBI WOLF, RYAN Schreiber Ot 733.90 BONE CARTILAGE DIS NOS 10/30/2015 BARBI WOLF, RYAN Schreiber Ot 786.52 PAINFUL RESPIRATION 10/30/2015 RYAN LANDON MD Ot V45.82 PERCUTANEOUS TRANSLUM CORON ANGIOPLASTY 10/30/2015 Ot 185 MALIGN NEOPL PROSTATE 10/30/2015 Ot 592.0 CALCULUS OF KIDNEY 10/30/2015 ANDREW NATION MD Ot 185 MALIGN NEOPL PROSTATE 10/30/2015 ANDREW NATION MD Ot V72.81 [id number] CARDIOVASCULAR 10/30/2015 ANDREW NATION MD Ot V74.8 SCREEN-BACTERIAL DIS NEC 10/30/2015 TIN SOTO DO Ot 414.00 CORON ATHEROSCLER NOS TYPE VESSEL, NATIV 10/30/2015 TIN SOTO DO Ot 786.09 RESPIRATORY ABNORM NEC 10/30/2015 CHETNA WOLF, PERNELL Fermin Ot C61 MALIGNANT NEOPLASM OF PROSTATE 10/30/2015 ANDREW NATION MD, Ot N20.0 CALCULUS OF KIDNEY 10/30/2015 ANDREW NATION MD Ot Z01.818 ENCOUNTER FOR OTHER PREPROCEDURAL EXAMIN 11/03/2015 ANDREW NATION MD, Ot N20.0 CALCULUS OF KIDNEY 11/03/2015 CHAPIS WOLF, ANDREW Schreiber Ot Z79.899 OTHER MAILING MANAGER (CURRENT) DRUG THERAPY 11/04/2015 CHAPIS WOLF, ANDREW Schreiber Ot N20.0 CALCULUS OF KIDNEY 11/04/2015 CHAPIS WOLF, ANDREW Schreiber Ot Z79.899 OTHER ASSISTED (CURRENT) DRUG THERAPY 11/04/2015 CHAPIS WOLF, ANDREW Schreiber Ot N20.0 CALCULUS OF KIDNEY 11/04/2015 CHAPIS WOLF, ANDREW Schreiber Ot Z79.899 OTHER MAILING MANAGER (CURRENT) DRUG THERAPY 11/17/2015 Ot 140.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 11/17/2015 Ot 272.4 HYPERLIPIDEMIA NEC/NOS 11/17/2015 Ot 401.9 HYPERTENSION NOS 11/17/2015 Ot 413.9 ANGINA PECTORIS NEC/NOS 11/17/2015 Ot 786.09 RESPIRATORY ABNORM NEC 11/17/2015 Ot 786.50 CHEST PAIN NOS 11/17/2015 Ot V45.81 AORTOCORONARY BYPASS 11/17/2015 Ot V72.63 PRE- PROCEDURAL LABORATORY EXAMINATION 11/17/2015 Ot V72.81 EXAM-PRE- OPERATIVE CARDIOVASCULAR 11/17/2015 Ot 592.0 CALCULUS OF KIDNEY 11/17/2015 Ot 592.1 CALCULUS OF URETER 11/17/2015 Ot 592.1 CALCULUS OF URETER 11/17/2015 Ot V72.63 PRE- PROCEDURAL LABORATORY EXAMINATION 11/17/2015 Ot V72.81 EXAM-PRE- OPERATIVE CARDIOVASCULAR 11/17/2015 Ot V72.83 EXAM PRE- OPERATIVE NEC 11/17/2015 Ot V74.8 SCREEN- BACTERIAL DIS NEC 11/17/2015 Ot 592.1 CALCULUS OF URETER 11/17/2015 Ot V67.09 SURGERY FOLLOW-UP, OTHER SURGERY 11/17/2015 Ot 786.2 COUGH 11/17/2015 Ot 785.1 PALPITATIONS 11/17/2015 JAVIER BELLO DO Ot V72.84 EXAM PRE-OPERATIVE NOS 11/17/2015 RYAN LANDON MD Ot 268.9 VITAMIN D DEFICIENCY NOS 11/17/2015 RYAN LANDON MD Ot 515 POSTINFLAM PULM FIBROSIS 11/17/2015 RYAN LANDON MD Ot 733.90 BONE CARTILAGE DIS NOS 11/17/2015 RYAN LANDON MD Ot 786.52 PAINFUL RESPIRATION 11/17/2015 BARBI WOLF, RYAN Schreiber Ot V45.82 PERCUTANEOUS TRANSLUM CORON ANGIOPLASTY 11/17/2015 Ot 185 MALIGN NEOPL PROSTATE 11/17/2015 Ot 592.0 CALCULUS OF KIDNEY 11/17/2015 CHAPIS WOLF, ANDREW Schreiber Ot 185 MALIGN NEOPL PROSTATE 11/17/2015 CHAPIS WOLF, ANDREW Schreiber Ot V72.81 [id number] CARDIOVASCULAR 11/17/2015 ANDREW NATION MD Ot V74.8 SCREEN-BACTERIAL DIS NEC 11/17/2015 TIN SOTO DO Ot 414.00 CORON ATHEROSCLER NOS TYPE VESSEL, NATIV 11/17/2015 TIN SOTO DO Ot 786.09 RESPIRATORY ABNORM NEC 11/17/2015 CHETNA WOLF, PERNELL Fermin Ot C61 MALIGNANT NEOPLASM OF PROSTATE 11/17/2015 TIN SOTO DO Ot 414.00 CORON ATHEROSCLER NOS TYPE VESSEL, NATIV 11/17/2015 TIN SOTO DO Ot 786.09 RESPIRATORY ABNORM NEC 11/17/2015 CHAPIS WOLF, ANDREW Schreiber Ot N20.0 CALCULUS OF KIDNEY 11/17/2015 CHAPIS WOLF, ANDREW Schreiber Ot Z09 ENCNTR FOR F/U EXAM AFT TRTMT FOR COND O 11/23/2015 CHAPIS WOLF, ANDREW Schreiber Ot N20.0 CALCULUS OF KIDNEY 11/23/2015 CHAPIS WOLF, ANDREW A Ot Z09 ENCNTR FOR F/U EXAM AFT TRTMT FOR COND O 12/10/2015 CHAPIS WOLF, ANDREW Schreiber Ot N20.0 CALCULUS OF KIDNEY 12/10/2015 CHAPIS WOLF, ANDREW A Ot Z09 ENCNTR FOR F/U EXAM AFT TRTMT FOR COND O 12/22/2015 CHAPIS WOLF, ANDREW Schreiber Ot N20.0 CALCULUS OF KIDNEY 12/22/2015 CHAPIS WOLF, ANDREW A Ot Z09 ENCNTR FOR F/U EXAM AFT TRTMT FOR COND O 01/27/2016 JEFF LOUIS MD Ot R19.5 OTHER FECAL ABNORMALITIES 01/27/2016 JEFF LOUIS MD Ot Z01.818 ENCOUNTER FOR OTHER PREPROCEDURAL EXAMIN 01/28/2016 JEFF LOUIS MD Ot R19.5 OTHER FECAL ABNORMALITIES 01/28/2016 MISSY WOLF, JEFF Fonseca Ot Z01.818 ENCOUNTER FOR OTHER PREPROCEDURAL EXAMIN 01/29/2016 Ot 785.1 PALPITATIONS 01/29/2016 CHETNA WOLF, PERNELL Fermin Ot C61 MALIGNANT NEOPLASM OF PROSTATE 01/29/2016 JEFF LOUIS MD Ot E11.9 TYPE 2 DIABETES MELLITUS WITHOUT COMPLIC 01/29/2016 JEFF LOUIS MD Ot I48.91 UNSPECIFIED ATRIAL FIBRILLATION 01/29/2016 JEFF LOIUS MD Ot K62.5 HEMORRHAGE OF ANUS AND RECTUM 01/29/2016 JEFF LOUIS MD Ot Z79.01 ASSISTED (CURRENT) USE OF ANTICOAGULANT 02/01/2016 JEFF LOUIS MD, Ot E11.9 TYPE 2 DIABETES MELLITUS WITHOUT COMPLIC 02/01/2016 JEFF LOUIS MD, Ot I48.91 UNSPECIFIED ATRIAL FIBRILLATION 02/01/2016 JEFF LOUIS MD, Ot K62.5 HEMORRHAGE OF ANUS AND RECTUM 02/01/2016 JEFF LOUIS MD, Ot Z79.01 MAILING MANAGER (CURRENT) USE OF ANTICOAGULANT 03/24/2016 TIN SOTO DO Ot 414.00 CORON ATHEROSCLER NOS TYPE VESSEL, NATIV 03/24/2016 TIN SOTO DO Ot 786.09 RESPIRATORY ABNORM NEC 03/24/2016 ANDREW NATION MD Ot N20.0 CALCULUS OF KIDNEY 03/24/2016 ANDREW NATION MD Ot Z09 ENCNTR FOR F/U EXAM AFT TRTMT FOR COND O 03/24/2016 Ot 140.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 03/24/2016 Ot 272.4 HYPERLIPIDEMIA NEC/NOS 03/24/2016 Ot 401.9 HYPERTENSION NOS 03/24/2016 Ot 413.9 ANGINA PECTORIS NEC/NOS 03/24/2016 Ot 786.09 RESPIRATORY ABNORM NEC 03/24/2016 Ot 786.50 CHEST PAIN NOS 03/24/2016 Ot V45.81 AORTOCORONARY BYPASS 03/24/2016 Ot V72.63 PRE- PROCEDURAL LABORATORY EXAMINATION 03/24/2016 Ot V72.81 EXAM-PRE- OPERATIVE CARDIOVASCULAR 03/24/2016 Ot 592.0 CALCULUS OF KIDNEY 03/24/2016 Ot 592.1 CALCULUS OF URETER 03/24/2016 Ot 592.1 CALCULUS OF URETER 03/24/2016 Ot V72.63 PRE- PROCEDURAL LABORATORY EXAMINATION 03/24/2016 Ot V72.81 EXAM-PRE- OPERATIVE CARDIOVASCULAR 03/24/2016 Ot V72.83 EXAM PRE- OPERATIVE NEC 03/24/2016 Ot V74.8 SCREEN- BACTERIAL DIS NEC 03/24/2016 Ot 592.1 CALCULUS OF URETER 03/24/2016 Ot V67.09 SURGERY FOLLOW-UP, OTHER SURGERY 03/24/2016 Ot 786.2 COUGH 03/24/2016 Ot 785.1 PALPITATIONS 03/24/2016 JAVIER BELLO DO Ot V72.84 EXAM PRE-OPERATIVE NOS 03/24/2016 BARBI WOLF, RYAN Schreiber Ot 268.9 VITAMIN D DEFICIENCY NOS 03/24/2016 BARBI WOLF, RYAN Schreiber Ot 515 POSTINFLAM PULM FIBROSIS 03/24/2016 BARBI WOLF, RYAN Schreiber Ot 733.90 BONE CARTILAGE DIS NOS 03/24/2016 BARBI WOLF, RYAN Schreiber Ot 786.52 PAINFUL RESPIRATION 03/24/2016 BARBI WOLF, RYAN Schreiber Ot V45.82 PERCUTANEOUS TRANSLUM CORON ANGIOPLASTY 03/24/2016 Ot 185 MALIGN NEOPL PROSTATE 03/24/2016 Ot 592.0 CALCULUS OF KIDNEY 03/24/2016 ANDREW NATION MD Ot 185 MALIGN NEOPL PROSTATE 03/24/2016 ANDREW NATION MD Ot V72.81 [id number] CARDIOVASCULAR 03/24/2016 ANDREW NATION MD Ot V74.8 SCREEN-BACTERIAL DIS NEC 03/24/2016 TIN SOTO DO Ot 414.00 CORON ATHEROSCLER NOS TYPE VESSEL, NATIV 03/24/2016 TIN SOTO DO Ot 786.09 RESPIRATORY ABNORM NEC 03/24/2016 CHETNA WOLF, PERNELL Fermin Ot C61 MALIGNANT NEOPLASM OF PROSTATE 03/24/2016 ANDREW NATION MD Ot N20.0 CALCULUS OF KIDNEY 03/24/2016 ANDREW NATION MD Ot Z09 ENCNTR FOR F/U EXAM AFT TRTMT FOR COND O 03/24/2016 ZHANNA BENZ MD Ot R07.9 CHEST PAIN, UNSPECIFIED 04/14/2016 ZHANNA BENZ MD Ot R07.9 CHEST PAIN, UNSPECIFIED 04/20/2016 ZHANNA BENZ MD Ot R07.9 CHEST PAIN, UNSPECIFIED 04/26/2016 DAO SUTHERLANDRAFAL Ot D69.6 THROMBOCYTOPENIA, UNSPECIFIED 04/26/2016 DAO SUTHERLAND, RAFAL Schreiber Ot E11.9 TYPE 2 DIABETES MELLITUS WITHOUT COMPLIC 04/26/2016 DAO SUTHERLAND, RAFAL Schreiber Ot E78.00 PURE HYPERCHOLESTEROLEMIA, UNSPECIFIED 04/26/2016 DAO SUTHERLAND, RAFAL Schreiber Ot E78.5 HYPERLIPIDEMIA, UNSPECIFIED 04/26/2016 DAO SUTHERLAND, RAFAL Schreiber Ot G47.30 SLEEP APNEA, UNSPECIFIED 04/26/2016 DAO SUTHERLANDRAFAL Ot I10 ESSENTIAL (PRIMARY) HYPERTENSION 04/26/2016 DAO SUTHERLAND, RAFAL Schreiber Ot I25.119 ATHSCL HEART DISEASE OF [place] COR ART W 04/26/2016 DAO SUTHERLANDRAFAL Ot I48.91 UNSPECIFIED ATRIAL FIBRILLATION 04/26/2016 DAO SUTHERLANDRAFAL Ot K29.80 DUODENITIS WITHOUT BLEEDING 04/26/2016 DOA SUTHERLANDRAFAL Ot N39.0 URINARY TRACT INFECTION, SITE NOT SPECIF 04/26/2016 DAO SUTHERLANDRAFAL Ot R50.9 FEVER, UNSPECIFIED 04/26/2016 DAO SUTHERLANDRAFAL Ot R53.1 WEAKNESS 04/26/2016 DAO SUTHERLANDRAFAL Ot R74.8 ABNORMAL LEVELS OF OTHER SERUM ENZYMES 04/26/2016 DAO SUTHERLANDRAFAL Ot Z23 ENCOUNTER FOR IMMUNIZATION 04/26/2016 DAO SUTHERLANDRAFAL Ot Z79.84 MAILING MANAGER (CURRENT) USE OF ORAL HYPOGLYC 04/26/2016 DAO SUTHERLANDRAFAL Ot Z85.46 PERSONAL HISTORY OF MALIGNANT NEOPLASM O 04/26/2016 DAO SUTHERLANDRAFAL Ot Z87.891 PERSONAL HISTORY OF NICOTINE DEPENDENCE 04/26/2016 DAO SUTHERLANDARFAL Ot Z91.81 HISTORY OF FALLING 04/26/2016 DAO SUTHERLANDRAFAL Ot Z92.3 PERSONAL HISTORY OF IRRADIATION 04/26/2016 DAO SUTHERLANDRAFAL Ot Z95.1 PRESENCE OF AORTOCORONARY BYPASS GRAFT 04/26/2016 DAO SUTHERLANDRAFAL Ot Z95.5 PRESENCE OF CORONARY ANGIOPLASTY IMPLANT 04/27/2016 DAO SUTHERLANDRAFAL Ot D69.6 THROMBOCYTOPENIA, UNSPECIFIED 04/27/2016 GELLENDER DO, RAFAL Schreiber Ot E11.9 TYPE 2 DIABETES MELLITUS WITHOUT COMPLIC 04/27/2016 [facility], RAFAL Schreiber Ot E78.00 PURE HYPERCHOLESTEROLEMIA, UNSPECIFIED 04/27/2016 [facility], RAFAL Schreiber Ot E78.5 HYPERLIPIDEMIA, UNSPECIFIED 04/27/2016 [facility], RAFAL Schreiber Ot G47.30 SLEEP APNEA, UNSPECIFIED 04/27/2016 [facility] DO, RAFAL Schreiber Ot I10 ESSENTIAL (PRIMARY) HYPERTENSION 04/27/2016 [facility], RAFAL Schreiber Ot I25.119 ATHSCL HEART DISEASE OF [place] COR ART W 04/27/2016 [facility] DO, RAFAL Schreiber Ot I48.91 UNSPECIFIED ATRIAL FIBRILLATION 04/27/2016 [facility] DO, RAFAL Schreiber Ot K29.80 DUODENITIS WITHOUT BLEEDING 04/27/2016 [facility], RAFAL Schreiber Ot N39.0 URINARY TRACT INFECTION, SITE NOT SPECIF 04/27/2016 [facility] DO, RAFAL Schreiber Ot R50.9 FEVER, UNSPECIFIED 04/27/2016 [facility] Ot R53.1 WEAKNESS 04/27/2016 [facility], RAFAL Schreiber Ot R74.8 ABNORMAL LEVELS OF OTHER SERUM ENZYMES 04/27/2016 [facility], RAFAL Schreiber Ot T46.2X1A POISONING BY OTH ANTIDYSRHYTHMIC DRUGS, 04/27/2016 [facility] Ot Z23 ENCOUNTER FOR IMMUNIZATION 04/27/2016 [facility], RAFAL Schreiber Ot Z79.84 ASSISTED (CURRENT) USE OF ORAL HYPOGLYC 04/27/2016 [facility] Ot Z85.46 PERSONAL HISTORY OF MALIGNANT NEOPLASM O 04/27/2016 [facility] Ot Z87.891 PERSONAL HISTORY OF NICOTINE DEPENDENCE 04/27/2016 [facility] Ot Z91.81 HISTORY OF FALLING 04/27/2016 [facility] Ot Z92.3 PERSONAL HISTORY OF IRRADIATION 04/27/2016 [facility] Ot Z95.1 PRESENCE OF AORTOCORONARY BYPASS GRAFT 04/27/2016 [facility] Ot Z95.5 PRESENCE OF CORONARY ANGIOPLASTY IMPLANT 04/27/2016 [facility] Ot D69.6 THROMBOCYTOPENIA, UNSPECIFIED 04/27/2016 [facility] RAFAL Ot E11.9 TYPE 2 DIABETES MELLITUS WITHOUT COMPLIC 04/27/2016 [facility], RAFAL Schreiber Ot E78.00 PURE HYPERCHOLESTEROLEMIA, UNSPECIFIED 04/27/2016 [facility], RAFAL Schreiber Ot E78.5 HYPERLIPIDEMIA, UNSPECIFIED 04/27/2016 [facility], RAFAL Schreiber Ot G47.30 SLEEP APNEA, UNSPECIFIED 04/27/2016 DAO SUTHERLAND, RAFAL Schreiber Ot I10 ESSENTIAL (PRIMARY) HYPERTENSION 04/27/2016 [facility], RAFAL Schreiber Ot I25.119 ATHSCL HEART DISEASE OF [place] COR ART W 04/27/2016 [facility], RAFAL Schreiber Ot I48.91 UNSPECIFIED ATRIAL FIBRILLATION 04/27/2016 [facility] Ot K29.80 DUODENITIS WITHOUT BLEEDING 04/27/2016 [facility] , RAFAL Schreiber Ot N39.0 URINARY TRACT INFECTION, SITE NOT SPECIF 04/27/2016 DAO SUTHERLANDRAFAL Ot R50.9 FEVER, UNSPECIFIED 04/27/2016 [facility] Ot R53.1 WEAKNESS 04/27/2016 DAO RAFAL Ot R74.8 ABNORMAL LEVELS OF OTHER SERUM ENZYMES 04/27/2016 [facility] RAFAL Ot Z23 ENCOUNTER FOR IMMUNIZATION 04/27/2016 [facility], RAFAL Schreiber Ot Z79.84 ASSISTED (CURRENT) USE OF ORAL HYPOGLYC 04/27/2016 [facility] Ot Z85.46 PERSONAL HISTORY OF MALIGNANT NEOPLASM O 04/27/2016 [facility] Ot Z87.891 PERSONAL HISTORY OF NICOTINE DEPENDENCE 04/27/2016 [facility] RAFAL Ot Z91.81 HISTORY OF FALLING 04/27/2016 [facility] Ot Z92.3 PERSONAL HISTORY OF IRRADIATION 04/27/2016 [facility] Ot Z95.1 PRESENCE OF AORTOCORONARY BYPASS GRAFT 04/27/2016 [facility] Ot Z95.5 PRESENCE OF CORONARY ANGIOPLASTY IMPLANT 04/27/2016 [facility] RAFAL Ot D69.6 THROMBOCYTOPENIA, UNSPECIFIED 04/27/2016 [facility] Ot E11.9 TYPE 2 DIABETES MELLITUS WITHOUT COMPLIC 04/27/2016 [facility], RAFAL Schreiber Ot E78.00 PURE HYPERCHOLESTEROLEMIA, UNSPECIFIED 04/27/2016 DAO SUTHERLANDRAFAL Ot E78.5 HYPERLIPIDEMIA, UNSPECIFIED 04/27/2016 DAO SUTHERLANDRAFAL Ot G47.30 SLEEP APNEA, UNSPECIFIED 04/27/2016 DAO SUTHERLANDRAFAL Ot I10 ESSENTIAL (PRIMARY) HYPERTENSION 04/27/2016 DAO SUTHERLANDRAFAL Ot I25.119 ATHSCL HEART DISEASE OF [place] COR ART W 04/27/2016 DAO SUTHERLANDRAFAL Ot I48.91 UNSPECIFIED ATRIAL FIBRILLATION 04/27/2016 DAO SUTHERLANDRAFAL Ot K29.80 DUODENITIS WITHOUT BLEEDING 04/27/2016 DAO SUTHERLANDRAFAL Ot N39.0 URINARY TRACT INFECTION, SITE NOT SPECIF 04/27/2016 DAO SUTHERLANDRAFAL Ot R50.9 FEVER, UNSPECIFIED 04/27/2016 DAO SUTHERLANDRAFAL Ot R53.1 WEAKNESS 04/27/2016 DAO SUTHERLANDRAFAL Ot R74.8 ABNORMAL LEVELS OF OTHER SERUM ENZYMES 04/27/2016 DAO SUTHERLANDRAFAL Ot Z23 ENCOUNTER FOR IMMUNIZATION 04/27/2016 DAO SUTHERLANDRAFAL Ot Z79.84 ASSISTED (CURRENT) USE OF ORAL HYPOGLYC 04/27/2016 DAO SUTHERLANDRAFAL Ot Z85.46 PERSONAL HISTORY OF MALIGNANT NEOPLASM O 04/27/2016 DAO SUTHERLANDRAFAL Ot Z87.891 PERSONAL HISTORY OF NICOTINE DEPENDENCE 04/27/2016 DAO SUTHERLANDRAFAL Ot Z91.81 HISTORY OF FALLING 04/27/2016 DAO SUTHERLANDRAFAL Ot Z92.3 PERSONAL HISTORY OF IRRADIATION 04/27/2016 DAO SUTHERLANDRAFAL Ot Z95.1 PRESENCE OF AORTOCORONARY BYPASS GRAFT 04/27/2016 DAO SUTHERLANDRAFAL Ot Z95.5 PRESENCE OF CORONARY ANGIOPLASTY IMPLANT 04/29/2016 RYAN LANDON MD Ot D69.6 THROMBOCYTOPENIA, UNSPECIFIED 04/29/2016 RYAN LANDON MD Ot E11.9 TYPE 2 DIABETES MELLITUS WITHOUT COMPLIC 04/29/2016 RYAN LANDON MD Ot E78.00 PURE HYPERCHOLESTEROLEMIA, UNSPECIFIED 04/29/2016 RYAN LANDON MD Ot E78.5 HYPERLIPIDEMIA, UNSPECIFIED 04/29/2016 RYAN LANDON MD Ot G47.30 SLEEP APNEA, UNSPECIFIED 04/29/2016 RYAN LANDON MD Ot I10 ESSENTIAL (PRIMARY) HYPERTENSION 04/29/2016 RYAN LANDON MD Ot I25.119 ATHSCL HEART DISEASE OF [place] COR ART W 04/29/2016 RYAN LANDON MD Ot I48.91 UNSPECIFIED ATRIAL FIBRILLATION 04/29/2016 RYAN LANDON MD Ot K29.80 DUODENITIS WITHOUT BLEEDING 04/29/2016 RYAN LANDON MD Ot R50.9 FEVER, UNSPECIFIED 04/29/2016 RYAN LANDON MD Ot R53.1 WEAKNESS 04/29/2016 RYAN LANDON MD Ot R74.8 ABNORMAL LEVELS OF OTHER SERUM ENZYMES 04/29/2016 RYAN LANDON MD, Ot T46.2X1D POISONING BY OTH ANTIDYSRHYTHMIC DRUGS, 04/29/2016 RYAN LANDON MD Ot Z79.84 ASSISTED (CURRENT) USE OF ORAL HYPOGLYC 04/29/2016 RYAN LANDON MD Ot Z85.46 PERSONAL HISTORY OF MALIGNANT NEOPLASM O 04/29/2016 RYAN LANDON MD Ot Z87.891 PERSONAL HISTORY OF NICOTINE DEPENDENCE 04/29/2016 RYAN LANDON MD Ot Z91.81 HISTORY OF FALLING 04/29/2016 RYAN LANDON MD Ot Z92.3 PERSONAL HISTORY OF IRRADIATION 04/29/2016 RYAN LANDON MD Ot Z95.1 PRESENCE OF AORTOCORONARY BYPASS GRAFT 04/29/2016 RYAN LANDON MD Ot Z95.5 PRESENCE OF CORONARY ANGIOPLASTY IMPLANT 05/02/2016 RYAN LANDON MD Ot D69.6 THROMBOCYTOPENIA, UNSPECIFIED 05/02/2016 RYAN LANDON MD Ot E11.9 TYPE 2 DIABETES MELLITUS WITHOUT COMPLIC 05/02/2016 RYAN LANDON MD Ot E78.5 HYPERLIPIDEMIA, UNSPECIFIED 05/02/2016 RYAN LANDON MD Ot G47.30 SLEEP APNEA, UNSPECIFIED 05/02/2016 RYAN LANDON MD Ot I10 ESSENTIAL (PRIMARY) HYPERTENSION 05/02/2016 RYAN LANDON MD Ot I25.119 ATHSCL HEART DISEASE OF [place] COR ART W 05/02/2016 RYAN LANDON MD Ot 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 05/02/2016 RYAN LANDON MD Ot I48.91 UNSPECIFIED ATRIAL FIBRILLATION 05/02/2016 RYAN LANDON MD Ot I50.30 UNSPECIFIED DIASTOLIC (CONGESTIVE) HEART 05/02/2016 RYAN LANDON MD Ot R06.09 OTHER FORMS OF DYSPNEA 05/02/2016 RYAN LANDON MD Ot R14.0 ABDOMINAL DISTENSION (GASEOUS) 05/02/2016 RYAN LANDON MD Ot R53.1 WEAKNESS 05/02/2016 RYAN LANDON MD, Ot R60.0 LOCALIZED EDEMA 05/02/2016 RYAN LANDON MD Ot R74.8 ABNORMAL LEVELS OF OTHER SERUM ENZYMES 05/02/2016 RYAN LANDON MD, Ot T46.2X1D POISONING BY OTH ANTIDYSRHYTHMIC DRUGS, 05/02/2016 RYAN LANDON MD, Ot Z79.84 MAILING MANAGER (CURRENT) USE OF ORAL HYPOGLYC 05/02/2016 RYAN LANODN MD Ot Z85.46 PERSONAL HISTORY OF MALIGNANT NEOPLASM O 05/02/2016 RYAN LANDON MD Ot Z87.891 PERSONAL HISTORY OF NICOTINE DEPENDENCE 05/02/2016 RYAN LANDON MD Ot Z91.81 HISTORY OF FALLING 05/02/2016 RYAN LANDON MD Ot Z92.3 PERSONAL HISTORY OF IRRADIATION 05/02/2016 RYAN LANDON MD Ot Z95.1 PRESENCE OF AORTOCORONARY BYPASS GRAFT 05/02/2016 RYAN LANDON MD Ot Z95.5 PRESENCE OF CORONARY ANGIOPLASTY IMPLANT 05/06/2016 TIN SOTO DO Ot 414.00 CORON ATHEROSCLER NOS TYPE VESSEL, NATIV 05/06/2016 TIN SOTO DO Ot 786.09 RESPIRATORY ABNORM NEC 05/06/2016 ANDREW NATION MD Ot N20.0 CALCULUS OF KIDNEY 05/06/2016 ANDREW NATION MD Ot Z09 ENCNTR FOR F/U EXAM AFT TRTMT FOR COND O 05/06/2016 DEMAR WOLF, ZHANNA Suazo Ot R07.9 CHEST PAIN, UNSPECIFIED 05/28/2016 JAMIL MONTERO APRN Ot G47.33 OBSTRUCTIVE SLEEP APNEA (ADULT) (PEDIATR 05/30/2016 WINSTON, JAMIL E FAMILY MEMBER CARETAKER Ot G47.33 OBSTRUCTIVE SLEEP APNEA (ADULT) (PEDIATR 05/30/2016 WINSTON JAMIL Fermin FAMILY MEMBER CARETAKER Ot G47.33 OBSTRUCTIVE SLEEP APNEA (ADULT) (PEDIATR 07/14/2016 Ot 592.0 CALCULUS OF KIDNEY 07/14/2016 Ot 592.1 CALCULUS OF URETER 07/14/2016 Ot 592.1 CALCULUS OF URETER 07/14/2016 Ot V72.63 PRE- PROCEDURAL LABORATORY EXAMINATION 07/14/2016 Ot V72.81 EXAM-PRE- OPERATIVE CARDIOVASCULAR 07/14/2016 Ot V72.83 EXAM PRE- OPERATIVE NEC 07/14/2016 Ot V74.8 SCREEN- BACTERIAL DIS NEC 07/14/2016 Ot 592.1 CALCULUS OF URETER 07/14/2016 Ot V67.09 SURGERY FOLLOW-UP, OTHER SURGERY 07/14/2016 Ot 786.2 COUGH 07/14/2016 Ot 785.1 PALPITATIONS 07/14/2016 JAVIER BELLO DO Ot V72.84 EXAM PRE-OPERATIVE NOS 07/14/2016 BARBI WOLF, RYAN Schreiber Ot 268.9 VITAMIN D DEFICIENCY NOS 07/14/2016 BARBI WOLF, RYAN Schreiber Ot 515 POSTINFLAM PULM FIBROSIS 07/14/2016 BARBI WOLF, RYAN Schreiber Ot 733.90 BONE CARTILAGE DIS NOS 07/14/2016 BARBI WOLF, RYAN Schreiber Ot 786.52 PAINFUL RESPIRATION 07/14/2016 BARBI WOLF, RYAN Schreiber Ot V45.82 PERCUTANEOUS TRANSLUM CORON ANGIOPLASTY 07/14/2016 Ot 185 MALIGN NEOPL PROSTATE 07/14/2016 Ot 592.0 CALCULUS OF KIDNEY 07/14/2016 ANDREW NATION MD Ot 185 MALIGN NEOPL PROSTATE 07/14/2016 ANDREW NATION MD Ot V72.81 [id number] CARDIOVASCULAR 07/14/2016 ANDREW NATION MD Ot V74.8 SCREEN-BACTERIAL DIS NEC 07/14/2016 TIN SOTO DO Ot 414.00 CORON ATHEROSCLER NOS TYPE VESSEL, NATIV 07/14/2016 TIN SOTO DO Ot 786.09 RESPIRATORY ABNORM NEC 07/14/2016 CHETNA WOLF, PERNELL Fermin Ot C61 MALIGNANT NEOPLASM OF PROSTATE 07/14/2016 ANDREW NATION MD Ot N20.0 CALCULUS OF KIDNEY 07/14/2016 ANDREW NATION MD Ot Z09 ENCNTR FOR F/U EXAM AFT TRTMT FOR COND O 07/14/2016 ZHANNA BENZ MD Ot R07.9 CHEST PAIN, UNSPECIFIED 07/14/2016 RYAN LANDON MD Ot M54.5 LOW BACK PAIN 07/14/2016 RYAN LANDON MD Ot R53.1 WEAKNESS 07/18/2016 RYAN LANDON MD Ot M54.5 LOW BACK PAIN 07/18/2016 RYAN LANDON MD Ot R53.1 WEAKNESS 02/22/2017 Ot 786.2 COUGH 02/22/2017 Ot 785.1 PALPITATIONS 02/22/2017 JAVIER BELLO DO Ot V72.84 EXAM PRE-OPERATIVE NOS 02/22/2017 RYAN LANDON MD Ot 268.9 VITAMIN D DEFICIENCY NOS 02/22/2017 RYAN LANDON MD Ot 515 POSTINFLAM PULM FIBROSIS 02/22/2017 RYAN LANDON MD Ot 733.90 BONE CARTILAGE DIS NOS 02/22/2017 RYAN LANDON MD Ot 786.52 PAINFUL RESPIRATION 02/22/2017 RYAN LANDON MD Ot V45.82 PERCUTANEOUS TRANSLUM CORON ANGIOPLASTY 02/22/2017 Ot 185 MALIGN NEOPL PROSTATE 02/22/2017 Ot 592.0 CALCULUS OF KIDNEY 02/22/2017 ANDREW NATION MD Ot 185 MALIGN NEOPL PROSTATE 02/22/2017 ANDREW NATION MD Ot V72.81 [id number] CARDIOVASCULAR 02/22/2017 ANDREW NATION MD Ot V74.8 SCREEN-BACTERIAL DIS NEC 02/22/2017 TIN SOTO DO Ot 414.00 CORON ATHEROSCLER NOS TYPE VESSEL, NATIV 02/22/2017 TIN SOTO DO Ot 786.09 RESPIRATORY ABNORM NEC 02/22/2017 CHETNA WOLF, PERNELL Fermin Ot C61 MALIGNANT NEOPLASM OF PROSTATE 02/22/2017 ANDREW NATION MD Ot N20.0 CALCULUS OF KIDNEY 02/22/2017 ANDREW NATION MD, Ot Z09 ENCNTR FOR F/U EXAM AFT TRTMT FOR COND O 02/22/2017 ZHANNA BENZ MD Ot R07.9 CHEST PAIN, UNSPECIFIED 02/28/2017 Ot 785.1 PALPITATIONS 02/28/2017 CHETNA WOLF, PERNELL Fermin Ot C61 MALIGNANT NEOPLASM OF PROSTATE 03/01/2017 SAMUEL WOLF [facility], ALI FACP CCDS Ot E66.09 OTHER OBESITY DUE TO EXCESS CALORIES 03/01/2017 SAMUEL WOLF FAC, ALI FACP CCDS Ot E78.4 OTHER HYPERLIPIDEMIA 03/01/2017 SAMUEL WOLF FAC, ALI FACP CCDS Ot I10 ESSENTIAL (PRIMARY) HYPERTENSION 03/01/2017 SAMUEL WOLF [facility], ALI FACP CCDS Ot I48.0 PAROXYSMAL ATRIAL FIBRILLATION 03/01/2017 SMAUEL WOLF [facility], ALI FACP CCDS Ot 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 03/01/2017 SAMUEL WOLF [facility], ALI FACP CCDS Ot R06.09 OTHER FORMS OF DYSPNEA 03/01/2017 SAMUEL RICHARD, ALI FACP CCDS Ot R53.83 OTHER FATIGUE 03/08/2017 Ot 786.2 COUGH 03/08/2017 Ot 785.1 PALPITATIONS 03/08/2017 JAVIER BELLO DO Ot V72.84 EXAM PRE-OPERATIVE NOS 03/08/2017 RYAN LANDON MD Ot 268.9 VITAMIN D DEFICIENCY NOS 03/08/2017 RYAN LANDON MD Ot 515 POSTINFLAM PULM FIBROSIS 03/08/2017 RYAN LANDON MD Ot 733.90 BONE CARTILAGE DIS NOS 03/08/2017 RYAN LANDON MD Ot 786.52 PAINFUL RESPIRATION 03/08/2017 RYAN LANDON MD Ot V45.82 PERCUTANEOUS TRANSLUM CORON ANGIOPLASTY 03/08/2017 Ot 185 MALIGN NEOPL PROSTATE 03/08/2017 Ot 592.0 CALCULUS OF KIDNEY 03/08/2017 ANDREW NATION MD Ot 185 MALIGN NEOPL PROSTATE 03/08/2017 ANDREW NATION MD Ot V72.81 [id number] CARDIOVASCULAR 03/08/2017 ANDREW NATION MD Ot V74.8 SCREEN-BACTERIAL DIS NEC 03/08/2017 TIN SOTO DO Ot 414.00 CORON ATHEROSCLER NOS TYPE VESSEL, NATIV 03/08/2017 TIN SOTO DO Ot 786.09 RESPIRATORY ABNORM NEC 03/08/2017 PERNELL BASILIO MD Ot C61 MALIGNANT NEOPLASM OF PROSTATE 03/08/2017 ANDREW NATION MD Ot N20.0 CALCULUS OF KIDNEY 03/08/2017 ANDREW NATION MD Ot Z09 ENCNTR FOR F/U EXAM AFT TRTMT FOR COND O 03/08/2017 DEMAR WOLF, ZHANNA Suazo Ot R07.9 CHEST PAIN, UNSPECIFIED 03/08/2017 SAMUEL WOLF FACC, ALI FACP CCDS Ot E66.09 OTHER OBESITY DUE TO EXCESS CALORIES 03/08/2017 SAMUEL WOLF FACC, ALI FACP CCDS Ot E78.4 OTHER HYPERLIPIDEMIA 03/08/2017 SAMUEL WOLF FACC, ALI FACP CCDS Ot I10 ESSENTIAL (PRIMARY) HYPERTENSION 03/08/2017 SAMUEL WOLF FACC, ALI FACP CCDS Ot I48.0 PAROXYSMAL ATRIAL FIBRILLATION 03/08/2017 SAMUEL WOLF FACC, ALI FACP CCDS Ot 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 03/08/2017 SAMUEL WOLF FACC, ALI FACP CCDS Ot R06.09 OTHER FORMS OF DYSPNEA 03/08/2017 SAMUEL WOLF FACC, ALI FACP CCDS Ot R53.83 OTHER FATIGUE 03/18/2017 Ot 785.1 PALPITATIONS 03/18/2017 CHETNA WOLF, PERNELL Fermin Ot C61 MALIGNANT NEOPLASM OF PROSTATE 03/19/2017 RYAN LANDON MD Ot E11.9 TYPE 2 DIABETES MELLITUS WITHOUT COMPLIC 03/19/2017 RYAN LANDON MD Ot E78.5 HYPERLIPIDEMIA, UNSPECIFIED 03/19/2017 RYAN LANDON MD Ot I10 ESSENTIAL (PRIMARY) HYPERTENSION 03/19/2017 RYAN LANDON MD Ot I25.10 ATHSCL HEART DISEASE OF [place] CORONARY 03/19/2017 RYAN LANDON MD Ot I48.2 CHRONIC ATRIAL FIBRILLATION 03/19/2017 RYAN LADNON MD Ot I51.7 CARDIOMEGALY 03/19/2017 RYAN LANDON MD Ot K21.9 GASTRO-ESOPHAGEAL REFLUX DISEASE WITHOUT 03/19/2017 RYAN LANDON MD Ot N40.0 BENIGN PROSTATIC HYPERPLASIA WITHOUT LOW 03/19/2017 RYAN LANDON MD Ot R07.9 CHEST PAIN, UNSPECIFIED 03/19/2017 RYAN LANDON MD Ot Z79.01 MAILING MANAGER (CURRENT) USE OF ANTICOAGULANT 03/19/2017 RYAN LANDON MD, Ot Z79.899 OTHER ASSISTED (CURRENT) DRUG THERAPY 03/19/2017 RYAN LANDON MD Ot Z85.46 PERSONAL HISTORY OF MALIGNANT NEOPLASM O 03/19/2017 RYAN LANDON MD, Ot Z86.73 PRSNL HX OF TIA (TIA), AND CEREB INFRC W 03/19/2017 RYAN LANDON MD, Ot Z87.891 PERSONAL HISTORY OF NICOTINE DEPENDENCE 03/19/2017 RYAN LANDON MD Ot Z95.1 PRESENCE OF AORTOCORONARY BYPASS GRAFT 03/19/2017 RYAN LANDON MD Ot Z95.5 PRESENCE OF CORONARY ANGIOPLASTY IMPLANT 03/19/2017 RYAN LANDON MD Ot E11.9 TYPE 2 DIABETES MELLITUS WITHOUT COMPLIC 03/19/2017 RYAN LANDON MD Ot E78.5 HYPERLIPIDEMIA, UNSPECIFIED 03/19/2017 RYAN LANDON MD Ot I10 ESSENTIAL (PRIMARY) HYPERTENSION 03/19/2017 RYAN LANDON MD Ot I25.10 ATHSCL HEART DISEASE OF [place] CORONARY 03/19/2017 RYAN LANDON MD Ot I48.2 CHRONIC ATRIAL FIBRILLATION 03/19/2017 RYAN LANDON MD Ot I51.7 CARDIOMEGALY 03/19/2017 RYAN LANDON MD, Ot K21.9 GASTRO-ESOPHAGEAL REFLUX DISEASE WITHOUT 03/19/2017 RYAN LANDON MD Ot N40.0 BENIGN PROSTATIC HYPERPLASIA WITHOUT LOW 03/19/2017 RYAN LANDON MD Ot R07.9 CHEST PAIN, UNSPECIFIED 03/19/2017 RYAN LANDON MD Ot Z79.01 ASSISTED (CURRENT) USE OF ANTICOAGULANT 03/19/2017 RYAN LANDON MD Ot Z79.899 OTHER ASSISTED (CURRENT) DRUG THERAPY 03/19/2017 RYAN LANDON MD, Ot Z85.46 PERSONAL HISTORY OF MALIGNANT NEOPLASM O 03/19/2017 RYAN LANDON MD, Ot Z86.73 PRSNL HX OF TIA (TIA), AND CEREB INFRC W 03/19/2017 RYAN LANDON MD Ot Z87.891 PERSONAL HISTORY OF NICOTINE DEPENDENCE 03/19/2017 RYAN LANDON MD Ot Z95.1 PRESENCE OF AORTOCORONARY BYPASS GRAFT 03/19/2017 RYAN LANDON MD Ot Z95.5 PRESENCE OF CORONARY ANGIOPLASTY IMPLANT 03/22/2017 SAMUEL WOLF FACC, ALI FACP CCDS Ot E66.09 OTHER OBESITY DUE TO EXCESS CALORIES 03/22/2017 SAMUEL WOLF FACC, ALI FACP CCDS Ot E78.4 OTHER HYPERLIPIDEMIA 03/22/2017 SAMUEL WOLF FACC, ALI FACP CCDS Ot I10 ESSENTIAL (PRIMARY) HYPERTENSION 03/22/2017 SAMUEL WOLF FACC, ALI FACP CCDS Ot I48.0 PAROXYSMAL ATRIAL FIBRILLATION 03/22/2017 SAMUEL WOLF FACC, ALI FACP CCDS Ot 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 03/22/2017 SAMUEL WOLF FACC, ALI FACP CCDS Ot R06.09 OTHER FORMS OF DYSPNEA 03/22/2017 SAMUEL WOLF FACC, ALI FACP CCDS Ot R53.83 OTHER FATIGUE 03/28/2017 SAMUEL RICHARDC, ALI FACP CCDS Ot E66.09 OTHER OBESITY DUE TO EXCESS CALORIES 03/28/2017 SAMUEL WOLF FACC, ALI FACP CCDS Ot E78.4 OTHER HYPERLIPIDEMIA 03/28/2017 SAMUEL WOLF FACC, ALI FACP CCDS Ot I10 ESSENTIAL (PRIMARY) HYPERTENSION 03/28/2017 SAMUEL WOLF FACC, ALI FACP CCDS Ot I48.0 PAROXYSMAL ATRIAL FIBRILLATION 03/28/2017 SAMUEL WOLF FACC, ALI FACP CCDS Ot 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 03/28/2017 SAMUEL WOLF FACC, ALI FACP CCDS Ot R06.09 OTHER FORMS OF DYSPNEA 03/28/2017 SAMUEL WOLF FACC, ALI FACP CCDS Ot R53.83 OTHER FATIGUE 03/30/2017 SAMUEL RICHARDC, ALI FACP CCDS Ot E66.09 OTHER OBESITY DUE TO EXCESS CALORIES 03/30/2017 SAMUEL WOLF FACC, ALI FACP CCDS Ot E78.4 OTHER HYPERLIPIDEMIA 03/30/2017 SAMUEL WOLF FACC, ALI FACP CCDS Ot I10 ESSENTIAL (PRIMARY) HYPERTENSION 03/30/2017 SAMUEL WOLF FACC, ALI FACP CCDS Ot I48.0 PAROXYSMAL ATRIAL FIBRILLATION 03/30/2017 SAMUEL WOLF FACC, ALI FACP CCDS Ot 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 03/30/2017 SAMUEL WOLF FACC, ALI FACP CCDS Ot R06.09 OTHER FORMS OF DYSPNEA 03/30/2017 SAMUEL WOLF FAC, ALI FACP CCDS Ot R53.83 OTHER FATIGUE 04/05/2017 SAMUEL WOLF FAC, ALI FACP CCDS Ot E66.09 OTHER OBESITY DUE TO EXCESS CALORIES 04/05/2017 SAMUEL WOLF FAC, ALI FACP CCDS Ot E78.4 OTHER HYPERLIPIDEMIA 04/05/2017 SAMUEL WOLF FAC, ALI FACP CCDS Ot I10 ESSENTIAL (PRIMARY) HYPERTENSION 04/05/2017 SAMUEL WOLF [facility], ALI FACP CCDS Ot I48.0 PAROXYSMAL ATRIAL FIBRILLATION 04/05/2017 SAMUEL WOLF FAC, ALI FACP CCDS Ot 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 04/05/2017 SAMUEL WOLF [facility], ALI FACP CCDS Ot R06.09 OTHER FORMS OF DYSPNEA 04/05/2017 SAMUEL WOLF [facility], ALI FACP CCDS Ot R53.83 OTHER FATIGUE 05/12/2017 Kwadwo CARRASCO MD Ot E11.9 TYPE 2 DIABETES MELLITUS WITHOUT COMPLIC 05/12/2017 Kwadwo CARRASCO MD Ot E66.8 OTHER OBESITY 05/12/2017 Kwadwo CARRASCO MD Ot E78.5 HYPERLIPIDEMIA, UNSPECIFIED 05/12/2017 Kwadwo CARRASCO MD Ot G47.33 OBSTRUCTIVE SLEEP APNEA (ADULT) (PEDIATR 05/12/2017 Kwadwo CARRASCO MD Ot I10 ESSENTIAL (PRIMARY) HYPERTENSION 05/12/2017 Kwadwo CARRASCO MD Ot I25.10 ATHSCL HEART DISEASE OF [place] CORONARY 05/12/2017 Kwadwo CARRASCO MD Ot I44.60 UNSPECIFIED FASCICULAR BLOCK 05/12/2017 Kwadwo CARRASCO MD Ot I48.0 PAROXYSMAL ATRIAL FIBRILLATION 05/12/2017 Kwadwo CARRASCO MD Ot K21.9 GASTRO-ESOPHAGEAL REFLUX DISEASE WITHOUT 05/12/2017 Kwadwo CARRASCO MD Ot R00.0 TACHYCARDIA, UNSPECIFIED 05/12/2017 Kwadwo CARRASCO MD Ot R00.1 BRADYCARDIA, UNSPECIFIED 05/12/2017 Kwadwo CARRASCO MD Ot R53.83 OTHER FATIGUE 05/12/2017 Kwadwo CARRASCO MD Ot Z68.34 BODY MASS INDEX (BMI) 34.0-34.9, ADULT 05/12/2017 Kwadwo CARRASCO MD Ot Z79.01 ASSISTED (CURRENT) USE OF ANTICOAGULANT 05/12/2017 Kwadwo CARRASCO MD Ot Z79.899 OTHER MAILING MANAGER (CURRENT) DRUG THERAPY 05/12/2017 Kwadwo CARRASCO MD, Ot Z87.891 PERSONAL HISTORY OF NICOTINE DEPENDENCE 05/12/2017 Kwadwo CARRASCO MD Ot Z95.1 PRESENCE OF AORTOCORONARY BYPASS GRAFT 05/12/2017 Kwadwo CARRASCO MD Ot Z95.5 PRESENCE OF CORONARY ANGIOPLASTY IMPLANT 05/25/2017 Kwadwo CARRASCO MD Ot E11.9 TYPE 2 DIABETES MELLITUS WITHOUT COMPLIC 05/25/2017 Kwadwo CARRASCO MD Ot E66.8 OTHER OBESITY 05/25/2017 Kwadwo CARRASCO MD Ot E78.5 HYPERLIPIDEMIA, UNSPECIFIED 05/25/2017 Kwadwo CARRASCO MD Ot G47.33 OBSTRUCTIVE SLEEP APNEA (ADULT) (PEDIATR 05/25/2017 Kwadwo CARRASCO MD Ot I10 ESSENTIAL (PRIMARY) HYPERTENSION 05/25/2017 Kwadwo CARRASCO MD Ot I25.10 ATHSCL HEART DISEASE OF [place] CORONARY 05/25/2017 Kwadwo CARRASCO MD Ot I44.60 UNSPECIFIED FASCICULAR BLOCK 05/25/2017 Kwadwo CARRASCO MD Ot I48.0 PAROXYSMAL ATRIAL FIBRILLATION 05/25/2017 Kwadwo CARRASCO MD Ot K21.9 GASTRO-ESOPHAGEAL REFLUX DISEASE WITHOUT 05/25/2017 Kwadwo CARRASCO MD Ot R00.0 TACHYCARDIA, UNSPECIFIED 05/25/2017 Kwadwo CARRASCO MD Ot R00.1 BRADYCARDIA, UNSPECIFIED 05/25/2017 Kwadwo CARRASCO MD Ot R53.83 OTHER FATIGUE 05/25/2017 Kwadwo CARRASCO MD Ot Z68.34 BODY MASS INDEX (BMI) 34.0-34.9, ADULT 05/25/2017 Kwadwo CARRASCO MD Ot Z79.01 MAILING MANAGER (CURRENT) USE OF ANTICOAGULANT 05/25/2017 Kwadwo CARRASCO MD Ot Z79.899 OTHER MAILING MANAGER (CURRENT) DRUG THERAPY 05/25/2017 Kwadwo CARRASCO MD, Ot Z87.891 PERSONAL HISTORY OF NICOTINE DEPENDENCE 05/25/2017 Kwadwo CARRASCO MD Ot Z95.1 PRESENCE OF AORTOCORONARY BYPASS GRAFT 05/25/2017 Kwadwo CARRASCO MD Ot Z95.5 PRESENCE OF CORONARY ANGIOPLASTY IMPLANT 06/05/2017 Kwadwo CARRASCO MD Ot E11.9 TYPE 2 DIABETES MELLITUS WITHOUT COMPLIC 06/05/2017 Kwadwo CARRASCO MD Ot E66.8 OTHER OBESITY 06/05/2017 Kwadwo CARRASCO MD Ot E78.5 HYPERLIPIDEMIA, UNSPECIFIED 06/05/2017 Kwadwo CARRASCO MD Ot G47.33 OBSTRUCTIVE SLEEP APNEA (ADULT) (PEDIATR 06/05/2017 Kwadwo CARRASCO MD Ot I10 ESSENTIAL (PRIMARY) HYPERTENSION 06/05/2017 Kwadwo CARRASCO MD Ot I25.10 ATHSCL HEART DISEASE OF [place] CORONARY 06/05/2017 Kwadwo CARRASCO MD Ot I44.60 UNSPECIFIED FASCICULAR BLOCK 06/05/2017 Kwadwo CARRASCO MD Ot I48.0 PAROXYSMAL ATRIAL FIBRILLATION 06/05/2017 Kwadwo CARRASCO MD Ot K21.9 GASTRO-ESOPHAGEAL REFLUX DISEASE WITHOUT 06/05/2017 Kwadwo CARRASCO MD Ot R00.0 TACHYCARDIA, UNSPECIFIED 06/05/2017 Kwadwo CARRASCO MD Ot R00.1 BRADYCARDIA, UNSPECIFIED 06/05/2017 Kwadwo CARRASCO MD Ot R53.83 OTHER FATIGUE 06/05/2017 Kwadwo CARRASCO MD Ot Z68.34 BODY MASS INDEX (BMI) 34.0-34.9, ADULT 06/05/2017 Kwadwo CARRASCO MD Ot Z79.01 ASSISTED (CURRENT) USE OF ANTICOAGULANT 06/05/2017 Kwadwo CARRASCO MD Ot 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 Results Test Result Range Capillary blood glucose measurement by glucometer (mass/volume) - 01/29/16 08: 18 Capillary blood glucose measurement by glucometer (mass/volume) 95 mg/dL 70-110 Complete blood count (CBC) with automated white blood cell (WBC) differential - 04/23/16 15:30 Blood leukocytes automated count (number/volume) 6.5 10*3/uL 4.3-11.0 Blood erythrocytes automated count (number/volume) 4.35 10*6/uL 4.35-5.85 Venous blood hemoglobin measurement (mass/volume) 14.1 g/dL 13.3-17.7 Blood hematocrit (volume fraction) 42 % 40-54 Automated erythrocyte mean corpuscular volume 95 [foz_us] 80-99 Automated erythrocyte mean corpuscular hemoglobin (mass per erythrocyte) 32 pg 25-34 Automated erythrocyte mean corpuscular hemoglobin concentration measurement ( mass/volume) 34 g/dL 32-36 Automated erythrocyte distribution width ratio 14.2 % 10.0-14.5 Automated blood platelet count (count/volume) 108 10*3/uL 130-400 Automated blood platelet mean volume measurement 11.8 [foz_us] 7.4-10.4 Automated blood neutrophils/100 leukocytes 97 % 42-75 Automated blood lymphocytes/100 leukocytes 1 % 12-44 Blood monocytes/100 leukocytes 2 % 0-12 Automated blood eosinophils/100 leukocytes 0 % 0-10 Automated blood basophils/100 leukocytes 0 % 0-10 Blood neutrophils automated count (number/volume) 6.3 10*3 1.8-7.8 Blood lymphocytes automated count (number/volume) 0.1 10*3 1.0-4.0 Blood monocytes automated count (number/volume) 0.1 10*3 0.0-1.0 Automated eosinophil count 0.0 10*3/uL 0.0-0.3 Automated blood basophil count (count/volume) 0.0 10*3/uL 0.0-0.1 Comprehensive metabolic panel - 04/23/16 15:30 Serum or plasma sodium measurement (moles/volume) 138 mmol/L 135-145 Serum or plasma potassium measurement (moles/volume) 3.7 mmol/L 3.6-5.0 Serum or plasma chloride measurement (moles/volume) 107 mmol/L 98-107 Carbon dioxide 24 mmol/L 21-32 Serum or plasma anion gap determination (moles/volume) 7 mmol/L 5-14 Serum or plasma urea nitrogen measurement (mass/volume) 14 mg/dL 7-18 Serum or plasma creatinine measurement (mass/volume) 1.03 mg/dL 0.60-1.30 Serum or plasma urea nitrogen/creatinine mass ratio 14 NRG Serum or plasma creatinine measurement with calculation of estimated glomerular filtration rate > NRG Serum or plasma glucose measurement (mass/volume) 158 mg/dL 70-105 Serum or plasma calcium measurement (mass/volume) 9.0 mg/dL 8.5-10.1 Serum or plasma total bilirubin measurement (mass/volume) 2.9 mg/dL 0.1-1.0 Serum or plasma alkaline phosphatase measurement (enzymatic activity/volume) 118 U/L 40-136 Serum or plasma aspartate aminotransferase measurement (enzymatic activity/ volume) 390 U/L 5-34 Serum or plasma alanine aminotransferase measurement (enzymatic activity/volume ) 211 U/L 0-55 Serum or plasma protein measurement (mass/volume) 6.5 g/dL 6.4-8.2 Serum or plasma albumin measurement (mass/volume) 4.1 g/dL 3.2-4.5 Blood manual differential performed detection - 04/23/16 15:30 Blood monocytes/100 leukocytes 5 % NRG Manual blood segmented neutrophils/100 leukocytes 90 % NRG Blood band neutrophils/100 leukocytes 5 % NRG Blood erythrocyte morphology finding identification NORMAL NRG Blood lactic acid measurement (moles/volume) - 04/23/16 15:30 Blood lactic acid measurement (moles/volume) 2.3 mmol/L 0.5-2.0 Bacterial blood culture - 04/23/16 15:30 Bacterial blood culture NG NRG Complete urinalysis with reflex to culture - 04/23/16 16:10 Urine color determination WHIT NRG Urine clarity determination SLIGHTLY CLOUDY NRG Urine pH measurement by test strip 5 5-9 Specific gravity of urine by test strip 1.015 1.016- 1.022 Urine protein assay by test strip, semi-quantitative 2+ NEGATIVE Urine glucose detection by automated test strip NEGATIVE NEGATIVE Erythrocytes detection in urine sediment by light microscopy NEGATIVE NEGATIVE Urine ketones detection by automated test strip NEGATIVE NEGATIVE Urine nitrite detection by test strip NEGATIVE NEGATIVE Urine total bilirubin detection by test strip 1+ NEGATIVE Urine urobilinogen measurement by automated test strip (mass/volume) 4 mg/dL NORMAL Urine leukocyte esterase detection by dipstick 1+ NEGATIVE Automated urine sediment erythrocyte count by microscopy (number/high power field) NONE NRG Automated urine sediment leukocyte count by microscopy (number/high power field ) [HPF] NRG Bacteria detection in urine sediment by light microscopy NEGATIVE NRG Squamous epithelial cells detection in urine sediment by light microscopy 2-5 NRG Crystals detection in urine sediment by light microscopy NONE NRG Casts detection in urine sediment by light microscopy NONE NRG Mucus detection in urine sediment by light microscopy SMALL NRG Complete urinalysis with reflex to culture NO NRG Ammonia - 04/23/16 17:15 Ammonia 27 umol/L 11-32 Bacterial blood culture - 04/23/16 17:15 Bacterial blood culture NG NRG Serum or plasma lactate measurement (moles/volume) - 04/23/16 17:46 Serum or plasma lactate measurement (moles/volume) 2.6 mmol/L 0.5-2.0 Complete blood count (CBC) with automated white blood cell (WBC) differential - 04/23/16 19:05 Blood leukocytes automated count (number/volume) 7.5 10*3/uL 4.3-11.0 Blood erythrocytes automated count (number/volume) 3.98 10*6/uL 4.35-5.85 Venous blood hemoglobin measurement (mass/volume) 12.9 g/dL 13.3-17.7 Blood hematocrit (volume fraction) 38 % 40-54 Automated erythrocyte mean corpuscular volume 96 [foz_us] 80-99 Automated erythrocyte mean corpuscular hemoglobin (mass per erythrocyte) 32 pg 25-34 Automated erythrocyte mean corpuscular hemoglobin concentration measurement ( mass/volume) 34 g/dL 32-36 Automated erythrocyte distribution width ratio 14.2 % 10.0-14.5 Automated blood platelet count (count/volume) 109 10*3/uL 130-400 Automated blood platelet mean volume measurement 11.5 [foz_us] 7.4-10.4 Automated blood neutrophils/100 leukocytes 93 % 42-75 Automated blood lymphocytes/100 leukocytes 1 % 12-44 Blood monocytes/100 leukocytes 6 % 0-12 Automated blood eosinophils/100 leukocytes 0 % 0-10 Automated blood basophils/100 leukocytes 0 % 0-10 Blood neutrophils automated count (number/volume) 6.9 10*3 1.8-7.8 Blood lymphocytes automated count (number/volume) 0.1 10*3 1.0-4.0 Blood monocytes automated count (number/volume) 0.5 10*3 0.0-1.0 Automated eosinophil count 0.0 10*3/uL 0.0-0.3 Automated blood basophil count (count/volume) 0.0 10*3/uL 0.0-0.1 Blood lactic acid measurement (moles/volume) - 04/23/16 23:49 Blood lactic acid measurement (moles/volume) 1.5 mmol/L 0.5-2.0 Blood lactic acid measurement (moles/volume) - 04/24/16 06:25 Blood lactic acid measurement (moles/volume) 1.0 mmol/L 0.5-2.0 Comprehensive metabolic panel - 04/24/16 06:25 Serum or plasma sodium measurement (moles/volume) 136 mmol/L 135-145 Serum or plasma potassium measurement (moles/volume) 4.0 mmol/L 3.6-5.0 Serum or plasma chloride measurement (moles/volume) 109 mmol/L 98-107 Carbon dioxide 19 mmol/L 21-32 Serum or plasma anion gap determination (moles/volume) 8 mmol/L 5-14 Serum or plasma urea nitrogen measurement (mass/volume) 18 mg/dL 7-18 Serum or plasma creatinine measurement (mass/volume) 1.07 mg/dL 0.60-1.30 Serum or plasma urea nitrogen/creatinine mass ratio 17 NRG Serum or plasma creatinine measurement with calculation of estimated glomerular filtration rate > NRG Serum or plasma glucose measurement (mass/volume) 129 mg/dL 70-105 Serum or plasma calcium measurement (mass/volume) 8.6 mg/dL 8.5-10.1 Serum or plasma total bilirubin measurement (mass/volume) 2.1 mg/dL 0.1-1.0 Serum or plasma alkaline phosphatase measurement (enzymatic activity/volume) 83 U/L 40-136 Serum or plasma aspartate aminotransferase measurement (enzymatic activity/ volume) 155 U/L 5-34 Serum or plasma alanine aminotransferase measurement (enzymatic activity/volume ) 174 U/L 0-55 Serum or plasma protein measurement (mass/volume) 5.5 g/dL 6.4-8.2 Serum or plasma albumin measurement (mass/volume) 3.4 g/dL 3.2-4.5 Complete blood count (CBC) with automated white blood cell (WBC) differential - 04/24/16 06:25 Blood leukocytes automated count (number/volume) 6.6 10*3/uL 4.3-11.0 Blood erythrocytes automated count (number/volume) 3.98 10*6/uL 4.35-5.85 Venous blood hemoglobin measurement (mass/volume) 12.8 g/dL 13.3-17.7 Blood hematocrit (volume fraction) 38 % 40-54 Automated erythrocyte mean corpuscular volume 95 [foz_us] 80-99 Automated erythrocyte mean corpuscular hemoglobin (mass per erythrocyte) 32 pg 25-34 Automated erythrocyte mean corpuscular hemoglobin concentration measurement ( mass/volume) 34 g/dL 32-36 Automated erythrocyte distribution width ratio 14.3 % 10.0-14.5 Automated blood platelet count (count/volume) 93 10*3/uL 130-400 Automated blood platelet mean volume measurement 12.4 [foz_us] 7.4-10.4 Automated blood neutrophils/100 leukocytes 83 % 42-75 Automated blood lymphocytes/100 leukocytes 6 % 12-44 Blood monocytes/100 leukocytes 12 % 0-12 Automated blood eosinophils/100 leukocytes 0 % 0-10 Automated blood basophils/100 leukocytes 0 % 0-10 Blood neutrophils automated count (number/volume) 5.5 10*3 1.8-7.8 Blood lymphocytes automated count (number/volume) 0.4 10*3 1.0-4.0 Blood monocytes automated count (number/volume) 0.8 10*3 0.0-1.0 Automated eosinophil count 0.0 10*3/uL 0.0-0.3 Automated blood basophil count (count/volume) 0.0 10*3/uL 0.0-0.1 Blood blood smear finding identification by light microscopy YES NRG Complete blood count (CBC) with automated white blood cell (WBC) differential - 04/25/16 04:50 Blood leukocytes automated count (number/volume) 7.5 10*3/uL 4.3-11.0 Blood erythrocytes automated count (number/volume) 3.97 10*6/uL 4.35-5.85 Venous blood hemoglobin measurement (mass/volume) 12.9 g/dL 13.3-17.7 Blood hematocrit (volume fraction) 38 % 40-54 Automated erythrocyte mean corpuscular volume 96 [foz_us] 80-99 Automated erythrocyte mean corpuscular hemoglobin (mass per erythrocyte) 33 pg 25-34 Automated erythrocyte mean corpuscular hemoglobin concentration measurement ( mass/volume) 34 g/dL 32-36 Automated erythrocyte distribution width ratio 14.5 % 10.0-14.5 Automated blood platelet count (count/volume) 108 10*3/uL 130-400 Automated blood platelet mean volume measurement 12.4 [foz_us] 7.4-10.4 Automated blood neutrophils/100 leukocytes 72 % 42-75 Automated blood lymphocytes/100 leukocytes 9 % 12-44 Blood monocytes/100 leukocytes 19 % 0-12 Automated blood eosinophils/100 leukocytes 0 % 0-10 Automated blood basophils/100 leukocytes 0 % 0-10 Blood neutrophils automated count (number/volume) 5.4 10*3 1.8-7.8 Blood lymphocytes automated count (number/volume) 0.7 10*3 1.0-4.0 Blood monocytes automated count (number/volume) 1.4 10*3 0.0-1.0 Automated eosinophil count 0.0 10*3/uL 0.0-0.3 Automated blood basophil count (count/volume) 0.0 10*3/uL 0.0-0.1 Comprehensive metabolic panel - 04/25/16 04:50 Serum or plasma sodium measurement (moles/volume) 138 mmol/L 135-145 Serum or plasma potassium measurement (moles/volume) 4.0 mmol/L 3.6-5.0 Serum or plasma chloride measurement (moles/volume) 109 mmol/L 98-107 Carbon dioxide 20 mmol/L 21-32 Serum or plasma anion gap determination (moles/volume) 9 mmol/L 5-14 Serum or plasma urea nitrogen measurement (mass/volume) 16 mg/dL 7-18 Serum or plasma creatinine measurement (mass/volume) 0.92 mg/dL 0.60-1.30 Serum or plasma urea nitrogen/creatinine mass ratio 17 NRG Serum or plasma creatinine measurement with calculation of estimated glomerular filtration rate > NRG Serum or plasma glucose measurement (mass/volume) 120 mg/dL 70-105 Serum or plasma calcium measurement (mass/volume) 8.4 mg/dL 8.5-10.1 Serum or plasma total bilirubin measurement (mass/volume) 1.6 mg/dL 0.1-1.0 Serum or plasma alkaline phosphatase measurement (enzymatic activity/volume) 78 U/L 40-136 Serum or plasma aspartate aminotransferase measurement (enzymatic activity/ volume) 75 U/L 5-34 Serum or plasma alanine aminotransferase measurement (enzymatic activity/volume ) 125 U/L 0-55 Serum or plasma protein measurement (mass/volume) 5.9 g/dL 6.4-8.2 Serum or plasma albumin measurement (mass/volume) 3.5 g/dL 3.2-4.5 Blood manual differential performed detection - 04/25/16 04:50 Blood monocytes/100 leukocytes 12 % [facility] Manual blood segmented neutrophils/100 leukocytes 83 % NR Manual blood lymphocytes/100 leukocytes 5 % [facility] Blood erythrocyte morphology finding identification NORMAL [facility] Complete blood count (CBC) with automated white blood cell (WBC) differential - 04/28/16 06:28 Blood leukocytes automated count (number/volume) 4.0 10*3/uL 4.3-11.0 Blood erythrocytes automated count (number/volume) 4.02 10*6/uL 4.35-5.85 Venous blood hemoglobin measurement (mass/volume) 13.0 g/dL 13.3-17.7 Blood hematocrit (volume fraction) 38 % 40-54 Automated erythrocyte mean corpuscular volume 94 [foz_us] 80-99 Automated erythrocyte mean corpuscular hemoglobin (mass per erythrocyte) 32 pg 25-34 Automated erythrocyte mean corpuscular hemoglobin concentration measurement ( mass/volume) 34 g/dL 32-36 Automated erythrocyte distribution width ratio 14.7 % 10.0-14.5 Automated blood platelet count (count/volume) 127 10*3/uL 130-400 Automated blood platelet mean volume measurement 12.3 [foz_us] 7.4-10.4 Automated blood neutrophils/100 leukocytes 64 % 42-75 Automated blood lymphocytes/100 leukocytes 24 % 12-44 Blood monocytes/100 leukocytes 12 % 0-12 Automated blood eosinophils/100 leukocytes 0 % 0-10 Automated blood basophils/100 leukocytes 0 % 0-10 Blood neutrophils automated count (number/volume) 2.6 10*3 1.8-7.8 Blood lymphocytes automated count (number/volume) 1.0 10*3 1.0-4.0 Blood monocytes automated count (number/volume) 0.5 10*3 0.0-1.0 Automated eosinophil count 0.0 10*3/uL 0.0-0.3 Automated blood basophil count (count/volume) 0.0 10*3/uL 0.0-0.1 Comprehensive metabolic panel - 04/28/16 06:28 Serum or plasma sodium measurement (moles/volume) 139 mmol/L 135-145 Serum or plasma potassium measurement (moles/volume) 4.1 mmol/L 3.6-5.0 Serum or plasma chloride measurement (moles/volume) 108 mmol/L 98-107 Carbon dioxide 21 mmol/L 21-32 Serum or plasma anion gap determination (moles/volume) 10 mmol/L 5-14 Serum or plasma urea nitrogen measurement (mass/volume) 13 mg/dL 7-18 Serum or plasma creatinine measurement (mass/volume) 0.83 mg/dL 0.60-1.30 Serum or plasma urea nitrogen/creatinine mass ratio 16 NRG Serum or plasma creatinine measurement with calculation of estimated glomerular filtration rate > NRG Serum or plasma glucose measurement (mass/volume) 131 mg/dL 70-105 Serum or plasma calcium measurement (mass/volume) 9.4 mg/dL 8.5-10.1 Serum or plasma total bilirubin measurement (mass/volume) 1.2 mg/dL 0.1-1.0 Serum or plasma alkaline phosphatase measurement (enzymatic activity/volume) 73 U/L 40-136 Serum or plasma aspartate aminotransferase measurement (enzymatic activity/ volume) 37 U/L 5-34 Serum or plasma alanine aminotransferase measurement (enzymatic activity/volume ) 63 U/L 0-55 Serum or plasma protein measurement (mass/volume) 6.1 g/dL 6.4-8.2 Serum or plasma albumin measurement (mass/volume) 3.4 g/dL 3.2-4.5 Magnesium - 04/28/16 06:28 Magnesium 2.2 mg/dL 1.8-2.4 THYROID STIMULATING HORMONE - 04/28/16 06:28 THYROID STIMULATING HORMONE 1.60 u[iU]/mL 0.35-4.94 Comprehensive metabolic panel - 04/29/16 03:57 Serum or plasma sodium measurement (moles/volume) 140 mmol/L 135-145 Serum or plasma potassium measurement (moles/volume) 4.1 mmol/L 3.6-5.0 Serum or plasma chloride measurement (moles/volume) 109 mmol/L 98-107 Carbon dioxide 19 mmol/L 21-32 Serum or plasma anion gap determination (moles/volume) 12 mmol/L 5-14 Serum or plasma urea nitrogen measurement (mass/volume) 13 mg/dL 7-18 Serum or plasma creatinine measurement (mass/volume) 0.83 mg/dL 0.60-1.30 Serum or plasma urea nitrogen/creatinine mass ratio 16 NRG Serum or plasma creatinine measurement with calculation of estimated glomerular filtration rate > NRG Serum or plasma glucose measurement (mass/volume) 133 mg/dL 70-105 Serum or plasma calcium measurement (mass/volume) 8.9 mg/dL 8.5-10.1 Serum or plasma total bilirubin measurement (mass/volume) 1.0 mg/dL 0.1-1.0 Serum or plasma alkaline phosphatase measurement (enzymatic activity/volume) 85 U/L 40-136 Serum or plasma aspartate aminotransferase measurement (enzymatic activity/ volume) 46 U/L 5-34 Serum or plasma alanine aminotransferase measurement (enzymatic activity/volume ) 70 U/L 0-55 Serum or plasma protein measurement (mass/volume) 6.0 g/dL 6.4-8.2 Serum or plasma albumin measurement (mass/volume) 3.4 g/dL 3.2-4.5 Comprehensive metabolic panel - 04/30/16 04:10 Serum or plasma sodium measurement (moles/volume) 140 mmol/L 135-145 Serum or plasma potassium measurement (moles/volume) 4.1 mmol/L 3.6-5.0 Serum or plasma chloride measurement (moles/volume) 109 mmol/L 98-107 Carbon dioxide 20 mmol/L 21-32 Serum or plasma anion gap determination (moles/volume) 11 mmol/L 5-14 Serum or plasma urea nitrogen measurement (mass/volume) 13 mg/dL 7-18 Serum or plasma creatinine measurement (mass/volume) 0.82 mg/dL 0.60-1.30 Serum or plasma urea nitrogen/creatinine mass ratio 16 NRG Serum or plasma creatinine measurement with calculation of estimated glomerular filtration rate > NRG Serum or plasma glucose measurement (mass/volume) 118 mg/dL 70-105 Serum or plasma calcium measurement (mass/volume) 9.0 mg/dL 8.5-10.1 Serum or plasma total bilirubin measurement (mass/volume) 0.9 mg/dL 0.1-1.0 Serum or plasma alkaline phosphatase measurement (enzymatic activity/volume) 85 U/L 40-136 Serum or plasma aspartate aminotransferase measurement (enzymatic activity/ volume) 60 U/L 5-34 Serum or plasma alanine aminotransferase measurement (enzymatic activity/volume ) 78 U/L 0-55 Serum or plasma protein measurement (mass/volume) 6.1 g/dL 6.4-8.2 Serum or plasma albumin measurement (mass/volume) 3.4 g/dL 3.2-4.5 Comprehensive metabolic panel - 05/01/16 04:09 Serum or plasma sodium measurement (moles/volume) 139 mmol/L 135-145 Serum or plasma potassium measurement (moles/volume) 4.1 mmol/L 3.6-5.0 Serum or plasma chloride measurement (moles/volume) 108 mmol/L 98-107 Carbon dioxide 21 mmol/L 21-32 Serum or plasma anion gap determination (moles/volume) 10 mmol/L 5-14 Serum or plasma urea nitrogen measurement (mass/volume) 14 mg/dL 7-18 Serum or plasma creatinine measurement (mass/volume) 0.84 mg/dL 0.60-1.30 Serum or plasma urea nitrogen/creatinine mass ratio 17 NRG Serum or plasma creatinine measurement with calculation of estimated glomerular filtration rate > NRG Serum or plasma glucose measurement (mass/volume) 116 mg/dL 70-105 Serum or plasma calcium measurement (mass/volume) 9.5 mg/dL 8.5-10.1 Serum or plasma total bilirubin measurement (mass/volume) 1.3 mg/dL 0.1-1.0 Serum or plasma alkaline phosphatase measurement (enzymatic activity/volume) 82 U/L 40-136 Serum or plasma aspartate aminotransferase measurement (enzymatic activity/ volume) 73 U/L 5-34 Serum or plasma alanine aminotransferase measurement (enzymatic activity/volume ) 94 U/L 0-55 Serum or plasma protein measurement (mass/volume) 6.4 g/dL 6.4-8.2 Serum or plasma albumin measurement (mass/volume) 3.6 g/dL 3.2-4.5 Complete blood count (CBC) with automated white blood cell (WBC) differential - 03/18/17 19:30 Blood leukocytes automated count (number/volume) 5.0 10*3/uL 4.3-11.0 Blood erythrocytes automated count (number/volume) 4.20 10*6/uL 4.35-5.85 Venous blood hemoglobin measurement (mass/volume) 13.3 g/dL 13.3-17.7 Blood hematocrit (volume fraction) 39 % 40-54 Automated erythrocyte mean corpuscular volume 94 [foz_us] 80-99 Automated erythrocyte mean corpuscular hemoglobin (mass per erythrocyte) 32 pg 25-34 Automated erythrocyte mean corpuscular hemoglobin concentration measurement ( mass/volume) 34 g/dL 32-36 Automated erythrocyte distribution width ratio 13.6 % 10.0-14.5 Automated blood platelet count (count/volume) 140 10*3/uL 130-400 Automated blood platelet mean volume measurement 11.6 [foz_us] 7.4-10.4 Automated blood neutrophils/100 leukocytes 39 % 42-75 Automated blood lymphocytes/100 leukocytes 40 % 12-44 Blood monocytes/100 leukocytes 19 % 0-12 Automated blood eosinophils/100 leukocytes 2 % 0-10 Automated blood basophils/100 leukocytes 0 % 0-10 Blood neutrophils automated count (number/volume) 1.9 10*3 1.8-7.8 Blood lymphocytes automated count (number/volume) 2.0 10*3 1.0-4.0 Blood monocytes automated count (number/volume) 1.0 10*3 0.0-1.0 Automated eosinophil count 0.1 10*3/uL 0.0-0.3 Automated blood basophil count (count/volume) 0.0 10*3/uL 0.0-0.1 PT panel in platelet poor plasma by coagulation assay - 03/18/17 19:30 Prothrombin time (PT) in platelet poor plasma by coagulation assay 15.0 s 12.2-14.7 INR in platelet poor plasma or blood by coagulation assay 1.2 0.8-1.4 Activated partial thromboplastin time (aPTT) in platelet poor plasma bycoagulation assay - 03/18/17 19:30 Activated partial thromboplastin time (aPTT) in platelet poor plasma bycoagulation assay 31 s 24-35 Comprehensive metabolic panel - 03/18/17 19:30 Serum or plasma sodium measurement (moles/volume) 141 mmol/L 135-145 Serum or plasma potassium measurement (moles/volume) 3.5 mmol/L 3.6-5.0 Serum or plasma chloride measurement (moles/volume) 108 mmol/L 98-107 Carbon dioxide 23 mmol/L 21-32 Serum or plasma anion gap determination (moles/volume) 10 mmol/L 5-14 Serum or plasma urea nitrogen measurement (mass/volume) 13 mg/dL 7-18 Serum or plasma creatinine measurement (mass/volume) 0.84 mg/dL 0.60-1.30 Serum or plasma urea nitrogen/creatinine mass ratio 15 NRG Serum or plasma creatinine measurement with calculation of estimated glomerular filtration rate > NRG Serum or plasma glucose measurement (mass/volume) 105 mg/dL 70-105 Serum or plasma calcium measurement (mass/volume) 9.1 mg/dL 8.5-10.1 Serum or plasma total bilirubin measurement (mass/volume) 0.8 mg/dL 0.1-1.0 Serum or plasma alkaline phosphatase measurement (enzymatic activity/volume) 40 U/L 40-136 Serum or plasma aspartate aminotransferase measurement (enzymatic activity/ volume) 19 U/L 5-34 Serum or plasma alanine aminotransferase measurement (enzymatic activity/volume ) 18 U/L 0-55 Serum or plasma protein measurement (mass/volume) 6.6 g/dL 6.4-8.2 Serum or plasma albumin measurement (mass/volume) 3.9 g/dL 3.2-4.5 Magnesium - 03/18/17 19:30 Magnesium 2.1 mg/dL 1.8-2.4 Serum or plasma creatine kinase measurement (enzymatic activity/volume) - 03/18 19:30 Serum or plasma creatine kinase measurement (enzymatic activity/volume) 92 U/L 30-200 Serum or plasma creatine kinase MB measurement (enzymatic activity/volume) - 19:30 Serum or plasma creatine kinase MB measurement (enzymatic activity/volume) 1.2 ng/mL <6.6 Serum or plasma troponin i.cardiac measurement (mass/volume) - 03/18/17 19:30 Serum or plasma troponin i.cardiac measurement (mass/volume) < ng/ mL <0.30 Serum or plasma amylase measurement (enzymatic activity/volume) - 03/18/17 19: 30 Serum or plasma amylase measurement (enzymatic activity/volume) 50 U /L 25-125 Lipase - 03/18/17 19:30 Lipase 21 U/L 8-78 Serum or plasma lithium measurement (moles/volume) - 03/18/17 19:30 BNP level 133.2 pg/mL <100.0 Complete blood count (CBC) with automated white blood cell (WBC) differential - 03/19/17 04:25 Blood leukocytes automated count (number/volume) 4.5 10*3/uL 4.3-11.0 Blood erythrocytes automated count (number/volume) 4.10 10*6/uL 4.35-5.85 Venous blood hemoglobin measurement (mass/volume) 12.8 g/dL 13.3-17.7 Blood hematocrit (volume fraction) 39 % 40-54 Automated erythrocyte mean corpuscular volume 94 [foz_us] 80-99 Automated erythrocyte mean corpuscular hemoglobin (mass per erythrocyte) 31 pg 25-34 Automated erythrocyte mean corpuscular hemoglobin concentration measurement ( mass/volume) 33 g/dL 32-36 Automated erythrocyte distribution width ratio 13.5 % 10.0-14.5 Automated blood platelet count (count/volume) 136 10*3/uL 130-400 Automated blood platelet mean volume measurement 11.9 [foz_us] 7.4-10.4 Automated blood neutrophils/100 leukocytes 42 % 42-75 Automated blood lymphocytes/100 leukocytes 38 % 12-44 Blood monocytes/100 leukocytes 17 % 0-12 Automated blood eosinophils/100 leukocytes 3 % 0-10 Automated blood basophils/100 leukocytes 0 % 0-10 Blood neutrophils automated count (number/volume) 1.9 10*3 1.8-7.8 Blood lymphocytes automated count (number/volume) 1.7 10*3 1.0-4.0 Blood monocytes automated count (number/volume) 0.8 10*3 0.0-1.0 Automated eosinophil count 0.1 10*3/uL 0.0-0.3 Automated blood basophil count (count/volume) 0.0 10*3/uL 0.0-0.1 Comprehensive metabolic panel - 03/19/17 04:25 Serum or plasma sodium measurement (moles/volume) 142 mmol/L 135-145 Serum or plasma potassium measurement (moles/volume) 3.8 mmol/L 3.6-5.0 Serum or plasma chloride measurement (moles/volume) 111 mmol/L 98-107 Carbon dioxide 22 mmol/L 21-32 Serum or plasma anion gap determination (moles/volume) 9 mmol/L 5-14 Serum or plasma urea nitrogen measurement (mass/volume) 11 mg/dL 7-18 Serum or plasma creatinine measurement (mass/volume) 0.78 mg/dL 0.60-1.30 Serum or plasma urea nitrogen/creatinine mass ratio 14 NRG Serum or plasma creatinine measurement with calculation of estimated glomerular filtration rate > NRG Serum or plasma glucose measurement (mass/volume) 89 mg/dL 70-105 Serum or plasma calcium measurement (mass/volume) 8.6 mg/dL 8.5-10.1 Serum or plasma total bilirubin measurement (mass/volume) 0.7 mg/dL 0.1-1.0 Serum or plasma alkaline phosphatase measurement (enzymatic activity/volume) 34 U/L 40-136 Serum or plasma aspartate aminotransferase measurement (enzymatic activity/ volume) 19 U/L 5-34 Serum or plasma alanine aminotransferase measurement (enzymatic activity/volume ) 19 U/L 0-55 Serum or plasma protein measurement (mass/volume) 5.9 g/dL 6.4-8.2 Serum or plasma albumin measurement (mass/volume) 3.5 g/dL 3.2-4.5 Serum or plasma phosphate measurement (mass/volume) - 03/19/17 04:25 Serum or plasma phosphate measurement (mass/volume) 2.7 mg/dL 2.3-4.7 Magnesium - 03/19/17 04:25 Magnesium 2.0 mg/dL 1.8-2.4 Serum or plasma troponin i.cardiac measurement (mass/volume) - 03/19/17 04:25 Serum or plasma troponin i.cardiac measurement (mass/volume) < ng/ mL <0.30 Myoglobin, serum - 03/19/17 04:25 Myoglobin, serum 76.7 ng/mL 10.0-92.0 Lipid 1996 panel - 03/19/17 04:25 Serum or plasma triglyceride measurement (mass/volume) 123 mg/dL <150 Serum or plasma cholesterol measurement (mass/volume) 157 mg/dL < 200 Serum or plasma cholesterol in HDL measurement (mass/volume) 33 mg/ dL 40-60 Cholesterol in LDL [mass/volume] in serum or plasma by direct assay 110 mg/dL 1-129 Serum or plasma cholesterol in VLDL measurement (mass/volume) 25 mg/ dL 5-40 Capillary blood glucose measurement by glucometer (mass/volume) - 03/19/17 11: 02 Capillary blood glucose measurement by glucometer (mass/volume) 86 mg/dL 70-110 Serum or plasma troponin i.cardiac measurement (mass/volume) - 03/19/17 12:47 Serum or plasma troponin i.cardiac measurement (mass/volume) < ng/ mL <0.30 Encounters ACCT No. Visit Date/Time Discharge Status Pt. Type Provider Facility Loc./Unit Complaint [id number] 05/11/2017 07:30:00 05/11/2017 23:59:59 CLS Outpatient Kwadwo CARRASCO MD [facility] ASSISTED SURVEILLANCE FOR AFIB [id number] 03/18/2017 22:15:00 03/19/2017 13:07:00 DIS Inpatient RYAN LANDON MD [facility] ICU CHEST PAIN; HYPERTENSIVE URGENCY [id number] 03/09/2017 12:34:00 03/09/2017 23:59:59 CLS Outpatient MICHAEL BAKER MD, FACCP CCDS [facility] CARD RAMIREZ R06.09 [id number] 02/28/2017 07:12:00 02/28/2017 23:59:59 CLS Outpatient SAMUEL WOLF FACC ALI FACP CCDS [facility] CARD RAMIREZ R06.09 [id number] 07/18/2016 13:24:00 07/18/2016 15:18:00 DIS Outpatient RYAN LANDON MD [facility] REHAB BACK PAIN; GENERALIZED WEAKNESS; FALLING EPISODES [id number] 05/27/2016 19:01:00 05/28/2016 06:15:00 DIS Outpatient JAMIL MONTERO APRN [facility] SLEEP ARRHYTHMLAS, EXCESSIVE DAYTIME SLEEPINESS [id number] 04/27/2016 09:15:00 05/02/2016 11:50:00 DIS Inpatient RYAN LANDON MD [facility] 4TH SWB - FEVER,WEAKNESS [id number] 04/24/2016 10:01:00 04/27/2016 09:00:00 DIS Inpatient RAFAL DC DO [facility] 4TH FEVER [id number] 03/24/2016 14:48:00 03/24/2016 23:59:59 CLS Outpatient ZHANNA BENZ MD [facility] RAD CHEST PAIN,UNSPECIFIED [id number] 01/29/2016 07:42:00 01/29/2016 10:20:00 DIS Outpatient JEFF LOUIS MD [facility] OCCULT POSITIVE STOOLS [id number] 01/27/2016 05:40:00 01/27/2016 16:01:00 DIS Outpatient JEFF LOUIS MD [facility] PREOP OCCULT POSITIVE STOOLS [id number] 11/17/2015 12:46:00 11/17/2015 23:59:59 CLS Outpatient ANDREW NATION MD [facility] RAD STONE [id number] 11/03/2015 05:59:00 11/03/2015 10:20:00 DIS Outpatient ANDREW NATION MD [facility] SDC RIGHT STONE [id number] 10/30/2015 05:41:00 10/30/2015 11:06:00 DIS Outpatient ANDREW NATION MD [facility] PREOP RIGHT STONE [id number] 10/28/2015 04:07:00 10/28/2015 06:12:00 DIS Emergency SEBASTIEN MAGDALENA SUTHERLAND [facility] ER BLOOD IN URINE [id number] 07/01/2015 00:10:00 07/01/2015 23:59:59 CLS Preadmit PERNELL BASILIO MD [facility] ONC [id number] 04/01/2015 09:27:00 06/30/2015 00:01:00 DIS Outpatient PERNELL BASILIO MD [facility] ONC [id number] 06/18/2015 23:59:00 06/18/2015 23:59:00 CAN Emergency SEBASTIEN SUTHERLAND MAGDALENA Ang [facility] ER CHEST PAIN;A-FIB W/RVR [id number] 03/18/2015 19:50:00 03/19/2015 06:45:00 DIS Outpatient TIN SOTO DO [facility] SLEEP ARRHYTHMIAS ISCHEMIC HEART DISEASE HTN [id number] 02/26/2015 12:33:00 02/27/2015 11:35:00 DIS Inpatient JUAN J ALEMAN MD [facility] CSD AFIB, [id number] 01/28/2015 11:40:00 01/28/2015 23:59:59 CLS Outpatient TIN SOTO DO [facility] RT DYSPNEA ON EXERCTION, DYSPNEA,CAD [id number] 10/29/2014 08:59:00 12/04/2014 00:01:00 DIS Outpatient PERNELL BASILIO MD [facility] ONC [id number] 11/19/2014 17:44:00 11/19/2014 18:35:00 DIS Emergency DAIJA WOLF, ARIK Rogers [facility] ER ELEVATED HEART RATE [id number] 10/01/2014 06:00:00 10/01/2014 11:53:00 DIS Outpatient ANDREW NATION MD [facility] SDC PROSTATE CANCER [id number] 09/24/2014 10:38:00 09/24/2014 23:59:59 CLS Outpatient ANDREW NATION MD [facility] PREOP PROSTATE CANCER [id number] 04/21/2014 12:24:00 04/23/2014 11:10:00 DIS Inpatient RYAN LANDON MD [facility] 4TH DEHYDRATION [id number] 02/07/2014 19:28:00 02/07/2014 20:31:00 DIS Emergency [place] ANDERSON APRN [facility] ER ENLARGED TICK BITE [id number] 11/21/2013 08:26:00 11/21/2013 23:59:59 CLS Outpatient RYAN LANDON MD [facility] RAD LOW ALKALINE PHOSPHATES,CP,CHEST WALL PAIN,VIT D D [id number] 10/08/2013 10:51:00 10/08/2013 18:01:00 DIS Outpatient SAMUEL WOLF FACC, MICHAEL SANTIAGO CCDS [facility] CP,CAD,HLP [id number] 08/20/2013 12:36:00 08/20/2013 16:30:00 DIS Outpatient JAVIER BELLO DO [facility] SDC CHEST PAIN [id number] 08/14/2013 07:25:00 08/14/2013 23:59:59 CLS Outpatient BELLO JAVIER SUTHERLAND [facility] PREOP CHEST PAINS [id number] 04/10/2013 08:56:00 07/09/2013 00:01:00 DIS Outpatient ANGELITA DUDLEY [facility] CARD PALPITATIONS [id number] 01/06/2013 19:32:00 01/11/2013 11:50:00 DIS Inpatient RYAN LANDON MD [facility] 4TH FEVER, NEUTROPENIA, POSSIBLE PNEUMONIA [id number] 01/04/2013 17:18:00 01/04/2013 23:59:59 CLS Outpatient [id number] 11/23/2012 13:01:00 11/23/2012 21:50:00 DIS Outpatient MICHAEL BAKER MD, FACC, FACP CCDS [facility] CATH CAD,ANGINA, SOB,HTN,DM,HYPERLIPIDEMIA,FATIGUE,CABG, [id number] 11/15/2012 22:43:00 11/16/2012 16:00:00 DIS Inpatient RYAN LANDON MD [facility] CSD CHEST PAIN [id number] 10/27/2012 09:58:00 10/27/2012 23:59:59 CLS Outpatient [id number] 10/27/2012 20:17:00 10/27/2012 21:59:00 DIS Emergency TOSHA BROOKS MD [facility] ER UNCONTROLABLE SHAKING [id number] 03/24/2015 16:13:00 Document Registration [id number] 03/24/2015 16:12:00 Document Registration [id number] 03/24/2015 16:12:00 Document Registration [id number] 03/24/2015 16:12:00 Document Registration [id number] 09/24/2014 11:18:00 Document Registration [id number] 08/22/2014 11:54:00 Document Registration [id number] 07/10/2013 09:00:00 Document Registration [id number] 06/22/2011 13:38:00 Document Registration [id number] 06/08/2011 05:39:00 Document Registration [id number] 06/06/2011 07:41:00 Document Registration [id number] 05/31/2011 14:53:00 Document Registration [id number] 05/23/2011 16:08:00 Document Registration [id number] 05/15/2011 22:45:00 Document Registration [id number] 12/15/2010 11:21:00 Document Registration [id number] 10/12/2010 05:40:00 Document Registration [id number] 10/11/2010 09:02:00 Document Registration [id number] 04/20/2010 11:01:00 Document Registration
[2017-06-12] MEDS ORDERED: MIDAZOLAM 2 MG/2 ML (VERSED) VIAL ONE (14:18)
[2017-06-12] MEDS ORDERED: NEO/POLY/BAC (NEOSPORIN) OINT 15 GM TUBE ONE (14:58)
--- NOTE | 2017-06-12 15:16 | Cardiac Procedure Note-CS/ASA ---
Pre-Procedure Note Pre-Op Procedure Note H&P Reviewed The H&P was reviewed, patient examined and no changes noted. Date H&P Reviewed: Jun 12, 2017 Time H&P Reviewed: 13:00 Conscious Sedation Pre-Proced Time Reviewed: 13:00 ASA Class: 3 Airway Mallampati Classification: (sitka appropriate class) I. II. III, IV Lungs Heart ASA score ASA 1: a normal healthy patient ASA 2: a patient with a mild systemic disease (mid diabetes, controlled hypertension, obesity ASA 3: a patient with a severe systemic disease that limits activity (angina , COPD, prior Myocardial infarction) ASA 4: a patient with an incapacitating disease that is a constant threat to life (CHF, renal failure) ASA 5: a moribund patient not expected to survive 24 hrs. (ruptured aneurysm) ASA 6: a declared brain patient whose organs are being harvested. For emergent operations, add the letter E after the classification Grade 1 Sedation Plan: Analgesia, Amnesia, Plan communicated to team members, Discussed options with patient/fam, Discussed risks with patient/fam Note The patient is an appropriate candidate to undergo the planned procedure, sedation, and anesthesia. The patient immediately re-assessed prior to indication. Kwadwo CARRASCO MD Jun 12, 2017 3:16 pm
--- NOTE | 2017-06-12 15:17 | Cardiology Post Procedure Note ---
Post-Procedure Note Physician (s)/Machine Setter Sheet Metal (s) Physician Kwadwo CARRASCO MD Pre-Procedure Diagnosis Pre-Procedure Diagnosis: PAF with severe symptomatic pauses Post-Procedure Note Procedure Start Date: Jun 12, 2017 Procedure Start Time: 13:30 Name of Procedure: dual chamber permanent pacemaker, ILR removal Findings/Procedure Note Successful implant of dual chamber PPM and ILR removal. Anesthesia Type: Conscious Sedation Estimated blood loss (mL): 20 Contrast Amount: 0 Post-Procedure Diagnosis Post-operative diagnosis: PAF with severe symptomatic pauses, asystole. Dual chamber PPM ILR removal Kwadwo CARRASCO MD Jun 12, 2017 3:17 pm
[2017-06-12] MEDS ORDERED: PATIENT MAY USE OWN MEDS, ALL PO SCH (15:30)
[2017-06-12] MEDS ORDERED: CATHETER FLUSH 10 ML SYR IV PRN (16:15)
[2017-06-12] MEDS: ceFAZolin INJECTION 1,000 MG in NS (IVPB) 50 ML IV SCH (18:35)
[2017-06-12] MEDS: NS IV 1000 ML 1,000 ML IV SCH (18:37)
--- NOTE | 2017-06-12 19:13 | Diagnostic Imaging Report ---
Two views of the chest. INDICATION: Pacemaker placement. FINDINGS: There is a left-sided pacemaker with two leads seen. There is no pneumothorax. The heart size is at the upper limits of normal. No focal infiltrate. No effusion or pneumothorax. Sternotomy wires are again noted. IMPRESSION: Pacemaker placement. The cardiac size is at the upper limits of normal. Dictated by: Dictated on workstation # [id number]
[2017-06-13] VITALS (17 sets, daily range): BP systolic 133–197; BP diastolic 65–86
--- NOTE | 2017-06-13 01:16 | OPERATIVE REPORT ---
DATE OF SERVICE: 06/12/2017 DUAL CHAMBER PERMANENT PACEMAKER AND IMPLANTABLE LOOP RECORDER REMOVAL REPORT PERFORMING PHYSICIAN: Dr. Tyler Soria. PRIMARY MAINTENANCE DISPATCHER: Paulo Culver MD. INDICATION: Paroxysmal atrial fibrillation with severe symptomatic pauses. Longest pause was for 18 seconds. PREOPERATIVE DIAGNOSES: 1. Paroxysmal atrial fibrillation. 2. Symptomatic pause/asystole. POSTOPERATIVE DIAGNOSES: 1. Successful dual chamber permanent pacemaker implantation. 2. Implantable loop recorder removal. HISTORY: The patient is a 77-year-old gentleman who follows Dr. Paulo Culver. He was referred for management of atrial fibrillation. Implantable loop recorder was placed for atrial fibrillation surveillance. Recently, the patient had significant episodes of dizziness and possible near syncope. Loop recorder interrogation showed numerous pauses. Longest pause/asystole was for 18 seconds. Urgent pacemaker implantation was recommended. The patient is on AV tianna blocking agents and propafenone. However, the patient does require due to rapid atrial fibrillation. PROCEDURE PERFORMED: 1. Dual chamber permanent pacemaker implantation. 2. Fluoroscopy. 3. Central venous access. 4. Implantable loop recorder removal. ANESTHESIA: Local anesthesia, conscious sedation. COMPLICATIONS: None. ESTIMATED BLOOD LOSS: 20 mL. ANTICOAGULATION: None. CONTRAST: None. FLUOROSCOPY TIME: FLUOROSCOPY DOSE: PROCEDURE DETAILS: After all the questions were answered, the patient was brought to the feed mill lab technician. The patient's left chest was prepped and draped in the usual sterile fashion. A 2-inch horizontal incision was made 1 cm below the clavicle and dissection carried down to the pectoralis fascia. Using the modified Seldinger technique and under fluoroscopy guidance, anterior aspect of the left axillary vein was accessed two times. The J wires were secured to the drapes with a mosquito clamp. A 7-Angolan sheath was introduced over one of the J wires. The RV lead was then inserted. The RV lead was directed across the tricuspid valve to the apical portion of the right ventricle. The position was checked in IRISH and MORA positions. The screw was deployed and the lead connected to the applications programmer analyst. Good sensing and pacing thresholds were obtained. Diaphragmatic pacing was ruled out. The lead was secured with 2-0 silk ties to the underlying muscle and fascia. Next, a 7-Angolan sheath was introduced through the remaining J wire. An atrial lead was then introduced and guided to the level of the right appendage. The screw was deployed and lead was connected to the interrogator. Good sensing and pacing thresholds were obtained. Diaphragmatic pacing was ruled out. The leads were secured with 2-0 silk ties to the underlying muscle and fascia. The leads were connected to the device in a hermetic fashion. The device and leads were placed in the pocket. Aggressive irrigation with saline solution was done. The device was secured to the underlying muscle and fascia with 2-0 silk tie. Interrogation of the device revealed good integrity of all the leads and good connections. The wound was closed using 2 layers. The first layer was 6 interrupted 2-0 absorbable Vicryl suture followed by a subcuticular layer with 4-0 Vicryl suture. Half inch Steri-Strips and a small dressing were then applied to the wound. Lidocaine was given where the implantable loop recorder was done. A small incision was done and the loop recorder was taken out. Dermabond and Steri-Strips were placed. The patient tolerated the procedure well and did not have any complication. DEVICE INFORMATION: Device is [employer] MRI DR. Model #[id number]. Serial #[id number]. RA lead is model #[id number]. Length 52. Serial #[id number]. Manufacture [employer]. RV lead is model #[id number]. Length 58 cm. Serial #[id number]. Manufacture [employer]. PERIOPERATIVE DEVICE INTERROGATION: Right atrial sensing was 1.9 millivolts. Impedance 611 ohms. Threshold was 1.1 volts at 0.5 milliseconds. Right ventricular sensing was 10.9 millivolts with impedance of 971 ohms. Threshold was 0.7 volts at 0.5 milliseconds. At the end of the procedure, device interrogation was performed, which showed P wave of 2.1 and R wave of 6.9 millivolts. Impedance was 532 in the RA and 608 in the RV. Pacing threshold was 1.25 in the right atrium at 0.4 milliseconds and 0.5 volts at 0.4 milliseconds in the RV. PLAN: The patient will be transferred to the ICU. We will continue three doses of IV antibiotics. We will check a chest x-ray and interrogate the device in the morning. The patient will continue oral antibiotics for 5 days. Job ID: [id number] DocumentID: [id number] Dictated Date: 06/12/2017 17:34:46 Sales Office Assistant Date: 06/13/2017 01:15:53 Dictated By: BENEDICTO SORIA MD
[2017-06-13] MEDS: ceFAZolin INJECTION 1,000 MG in NS (IVPB) 50 ML IV SCH ×2 (02:52→10:10)
[2017-06-13] MEDS: NS IV 1000 ML 1,000 ML IV SCH ×2 (04:35→15:14)
[2017-06-13 06:23] LABS: MEAN PLATELET VOLUME 11.1 FL (7.4-10.4); RED BLOOD COUNT 4.46 10^6/uL (4.35-5.85); RED CELL DISTRIBUTION WIDTH 13.6 % (10.0-14.5)
[2017-06-13 06:53] LABS: ALANINE AMINOTRANSFERASE 14 U/L (0-55); ALBUMIN 3.6 GM/DL (3.2-4.5); ANION GAP 8 MMOL/L (5-14); ASPARTATE AMINO TRANSFERASE 19 U/L (5-34); BLOOD UREA NITROGEN 10 MG/DL (7-18); BUN/CREATININE RATIO 13; CALCIUM 8.8 MG/DL (8.5-10.1); CARBON DIOXIDE 24 MMOL/L (21-32); CHLORIDE 108 MMOL/L (98-107); CREATININE SERUM 0.78 MG/DL (0.60-1.30); GFR ESTIMATED > 60; GLUCOSE 105 MG/DL (70-105); SODIUM 140 MMOL/L (135-145)
[2017-06-13] MEDS ORDERED: meTOprolol TARTRATE 50 MG (LOPRESSOR) TAB PO SCH (13:00)
[2017-06-13] MEDS ORDERED: PANTOPRAZOLE 40 MG (PROTONIX) TAB PO SCH (13:00)
[2017-06-13] MEDS ORDERED: LOSARTAN 100 MG (COZAAR) TABLET PO SCH (13:00)
[2017-06-13] MEDS ORDERED: CEPH-507 PO (13:03)
--- NOTE | 2017-06-13 13:03 | Discharge Inst-Post Device ---
Discharge Inst-Post Device Follow up/Plan follow-up with Dr. Soria in 3 weeks Heart Healthy Diet Do not lift arm on side of device placement above head for 4 weeks. Do not push and pull heavy objects for 4 weeks. Activity as tolerated. Leave dressing on until follow up at the office. Kwadwo SORIA MD Jun 13, 2017 1:03 pm
--- NOTE | 2017-06-13 13:06 | Cardiology Discharge Summary ---
Diagnosis/Chief Complaint Date of Admission 06/12/2017 Date of Discharge 06/13/2017 Admission Diagnosis paroxysmal atrial fibrillation, severe sinus node dysfunction with pauses, asystole Final/Discharge Diagnosis status post dual-chamber permanent pacemaker implantation. Implantable loop recorder removal. Chief Complaint/HPI Chief Complaint/HPI this is a 77-year-old gentleman with history of paroxysmal atrial fibrillation. He is on antiarrhythmic as well as AV tianna blocking agents which he requires for atrial fibrillation and rapid ventricular rate. He presented with symptoms of dizziness. Implantable loop recorder was placed previously for surveillance of atrial fibrillation. Prolonged pauses and asystole was noted. The longest asystole was for 18 seconds. Discharge Summary Procedures dual-chamber permanent pacemaker implantation. Implantable loop recorder removal. Discharge Physical Examination normal left upper chest site. Normal cardiac and respiratory examination Hospital Course Pending Labs Laboratory Tests 06/13/17 06:09: White Blood Count 7.0, Red Blood Count 4.46, Hemoglobin 14.1, Hematocrit 42, Mean Corpuscular Volume 94, Mean Corpuscular Hemoglobin 32, Mean Corpuscular Hemoglobin Concent 34, Red Cell Distribution Width 13.6, Platelet Count 139, Mean Platelet Volume 11.1, Sodium Level 140, Potassium Level 4.0, Chloride Level 108, Carbon Dioxide Level 24, Anion Gap 8, Blood Urea Nitrogen 10, Creatinine 0.78, Estimat Glomerular Filtration Rate > 60, BUN/Creatinine Ratio 13, Glucose Level 105, Calcium Level 8.8, Total Bilirubin 1.0, Aspartate Amino Transf (AST/SGOT) 19, Alanine Aminotransferase (ALT/SGPT) 14, Alkaline Phosphatase 38, Total Protein 6.0, Albumin 3.6 normal chest x-ray Discussion & Recommendations Discussion discharge took over 30 minutes to complete. All the discharge instructions were explained in detail. Follow up appt.: Dr. Soria in 3 weeks. Dicharge Diet: Cardiac Diet Activity as Tolerated: Yes Home Medications Reviewed patient Home Medication Reconciliation Form Discharge Home Medications: Reviewed and agree with Discharge Medication list on patient's Discharge Instruction sheet Condition at discharge stable Instructions to patient/family follow-up with Dr. Soria in 3 weeks Kwadwo SORIA MD Jun 13, 2017 1:06 pm
[2017-06-13] MEDS ORDERED: amLODIPine 5 MG (NORVASC) TAB PO NR ×2 (13:23→15:02)
[2017-06-13] MEDS ORDERED: hydrALAZINE (APRESOLINE) 25 MG TAB PO STA (17:00)
[2017-06-13] MEDS ORDERED: hydrALAZINE (APESOLINE) 20 MG/ML VIAL IV NR (18:41)
[2017-06-13] MEDS ORDERED: ALPRAZolam 0.25 MG (XANAX) TAB PO NR (18:42)
[2017-06-13] MEDS ORDERED: APIXABAN 5 MG (ELIQUIS) TABLET PO SCH (21:00)
== END 2017-06-13 20:31 | disposition home or self-care (01) ==
LOC: CATH 10:43 → ICU 15:40 → CATH 06-13 20:31
PROVIDERS: ATTEND Internal Medicine Interventional Cardiology
DX: I48.0 Paroxysmal atrial fibrillation (principal); I46.9 Cardiac arrest, cause unspecified; I49.5 Sick sinus syndrome; I25.119 Atherosclerotic heart disease of native coronary artery with unspecified angina pectoris; M25.552 Pain in left hip; E11.9 Type 2 diabetes mellitus without complications; K21.9 Gastro-esophageal reflux disease without esophagitis; E78.5 Hyperlipidemia, unspecified; I10 Essential (primary) hypertension; G47.33 Obstructive sleep apnea (adult) (pediatric); E74.39 Other disorders of intestinal carbohydrate absorption; E66.9 Obesity, unspecified; Z68.35 Body mass index [BMI] 35.0-35.9, adult; Z95.1 Presence of aortocoronary bypass graft
CPT/HCPCS: 33208; 33284; 36415; 71020; 80053; 85027; 85610; 85730; 87081; 93005

== ENCOUNTER 2017-07-11 15:45 | Inpatient (IN) | payer MEDICARE, BC ==
[~2017-07-11] VITALS: Ht 182.9 cm; Wt 113.7 kg
[~2017-07-11 15:45] MED LIST changes: +CEPH-507 PO; +NITR0.4T39 SL
--- OUTSIDE RECORDS SUMMARY | 2017-07-11 15:56 | XMS REPORT | Continuity of Care Document ---
Author Author [facility] Organization [facility] Address Unknown Phone Unavailable Allergies Active Description Code Type Severity Reaction Onset Reported/Identified Relationship to Patient Clinical Status Yes UNKNOWN ANTIBIOTIC UNKNOWN ANTIBIOTIC Mild N/A 09/06/2007 Yes No Known Drug Allergies [id number] Drug Allergy Unknown N/A 09/06/2007 Yes ciprofloxacin [id number] Drug Allergy Unknown HALLUCINATIONS 01/29/2016 Yes clonidine [id number] Drug Allergy Unknown HALLUCINATIONS 01/29/2016 Yes ciprofloxacin [id number] Drug Allergy Mild HALLUCINATIONS 02/28/2017 Yes clonidine [id number] Drug Allergy Mild HALLUCINATIONS 02/28/2017 Yes AMINODORONE AMINODORONE Unknown N/A 03/18/2017 Yes amiodarone [id number] Drug Allergy Unknown N/A 06/12/2017 Medications There is no data. Problems Date Dx Coded Attending Type Code Diagnosis Diagnosed By 05/25/1517 RYAN LANDON MD Ot M54.5 LOW BACK PAIN 05/25/1517 RYAN LANDON MD Ot R53.1 WEAKNESS 10/13/2010 Ot 271.3 DISACCHARIDASE DEF/MALAB 10/13/2010 Ot 272.4 HYPERLIPIDEMIA NEC/NOS 10/13/2010 Ot 413.9 ANGINA PECTORIS NEC/NOS 10/13/2010 Ot 414.01 CORONARY ATHEROSCLEROSIS OF [place] CORON 10/13/2010 Ot 424.0 MITRAL VALVE DISORDER [...] PERCUTANEOUS TRANSLUM CORON ANGIOPLASTY 11/23/2012 SAMUEL WOLF FACDaja, ALI FACP CCDS Ot 271.3 DISACCHARIDASE DEF/MALAB 11/23/2012 SAMUEL WOLF FACC, ALI FACP CCDS Ot 272.4 HYPERLIPIDEMIA NEC/NOS 11/23/2012 SAMUEL WOLF FACC, ALI FACP CCDS Ot 414.01 CORONARY ATHEROSCLEROSIS OF [place] CORON 11/23/2012 MICHAEL BAKER MD, FACC FACP CCDS Ot 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 11/23/2012 MICHAEL BAKER MD, FACC FACP CCDS Ot 414.4 CORONARY ATHEROSCLEROSIS DUE [...] BAKER MD, FACC FACP CCDS Ot V58.69 [facility] MED,LT,CURRENT USE 01/11/2013 RYAN LANDON MD Ot 066.1 TICK-BORNE FEVER 01/11/2013 RYAN LANDON MD Ot 250.00 DIAB DAVID WO COMPL, TYPE II OR UNSPEC TY 01/11/2013 RYAN LANDON MD Ot 275.2 DIS MAGNESIUM METABOLISM 01/11/2013 RYAN LANDON MD Ot 276.8 HYPOPOTASSEMIA 01/11/2013 RYAN LANDON MD Ot 284.19 OTHER PANCYTOPENIA 01/11/2013 RYAN LANDON MD Ot 287.5 THROMBOCYTOPENIA NOS 01/11/2013 RYAN LANDON MD Ot 401.9 HYPERTENSION NOS 01/11/2013 RYAN LANDON MD Ot 584.9 ACUTE RENAL FAILURE, UNSPECIFIED 01/11/2013 RYAN LANDON MD Ot 780.60 FEVER, UNSPECIFIED 01/11/2013 RYAN LANDON MD Ot 780.79 OTH MALAISE FATIGUE 01/11/2013 RYAN LANDON MD Ot 787.91 DIARRHEA 07/09/2013 ANGELITA DUDLEY ONE PIECE EXPANSION MAKER HAND Ot 785.1 PALPITATIONS 08/20/2013 EUGENIA SUTHERLAND JAVIER Marian Ot 531.90 STOMACH ULCER NOS 10/08/2013 SAMUEL WOLF FACC, ALI FACP CCDS Ot 271.3 DISACCHARIDASE DEF/MALAB 10/08/2013 SAMUEL WOLF FACC, ALI FACP CCDS Ot 272.4 HYPERLIPIDEMIA NEC/NOS 10/08/2013 SAMUEL WOLF FACC, ALI FACP CCDS Ot 278.00 OBESITY, NOS 10/08/2013 SAMUEL WOLF FACC, ALI FACP CCDS Ot 414.01 CORONARY ATHEROSCLEROSIS OF [place] CORON 10/08/2013 MICHAEL BAKER MD, FACC FACP CCDS Ot 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 10/08/2013 SAMUEL WOLF FACC, MICHAEL FACP CCDS Ot 786.50 CHEST PAIN NOS 10/08/2013 SAMUEL WOLF FACC, ALI FACP CCDS Ot V12.54 PERSONAL HX OF TIA, CEREBRAL INFARCTION 10/08/2013 SAMUEL WOLF FACC, MICHAEL FACP CCDS Ot V45.81 AORTOCORONARY BYPASS 10/08/2013 MICHAEL BAKER MD, FACC FACP CCDS Ot V45.82 PERCUTANEOUS TRANSLUM CORON ANGIOPLASTY 10/08/2013 MICHAEL BAKER MD, FACC FACP CCDS Ot V58.63 LONG-TERM(CURRENT)USE OF ANTIPLATELET/AN 10/08/2013 SAMUEL WOLF FACC ALI FACP CCDS Ot V58.69 OT MED,LT,CURRENT USE 10/08/2013 SAMUEL WOLF FACC ALI FACP CCDS Ot V85.36 BODY MASS INDEX 36.0-36.9, ADULT 02/07/2014 [place] [employer]Y[place] OR WOMAN Ot 682.6 CELLULITIS OF LEG 02/07/2014 [place] [employer] [employer] [place] WOMAN Ot 916.5 INSECT BITE HIP/LEG-INF 02/07/2014 [place] [employer] [employer] OR WOMAN Ot E906.4 NONVENOM ARTHROPOD BITE 04/23/2014 RYAN [...] LANDON MD Ot 414.01 CORONARY ATHEROSCLEROSIS OF [place] CORON 04/23/2014 RYAN LANDON MD Ot 530.81 [...] E Ot 185 10/01/2014 CHAPIS WOLF, ANDREW Schreiber Ot 185 10/01/2014 CHAPIS WOLF, ANDREW A Ot V72.81 10/01/2014 CHAPIS WOLF, ANDREW A Ot V74.8 10/01/2014 CHAPIS WOLF, ANDREW Schreiber Ot 185 MALIGN NEOPL PROSTATE 10/01/2014 CHAPIS WOLF, ANDREW A Ot 250.00 DIAB DAVID WO COMPL, TYPE II OR UNSPEC TY 10/01/2014 CHAPIS WOLF, ANDREW A Ot 401.9 HYPERTENSION NOS 10/01/2014 CHAPIS WOLF, ANDREW A Ot 414.00 CORON ATHEROSCLER NOS TYPE VESSEL, NATIV 10/01/2014 CHAPIS WOLF, ANDREW Schreiber Ot V45.81 AORTOCORONARY BYPASS 10/22/2014 CHETNA WOLF, PERNELL E Ot 185 10/23/2014 CHETNA WOLF, PERNELL E Ot 185 10/28/2014 CHAPIS WOLF, ANDREW A Ot 185 10/28/2014 CHAPIS WOLF, ANDREW A Ot V72.81 10/28/2014 CHAPIS WOLF, ANDREW A Ot V74.8 11/14/2014 CHAPIS WOLF, ANDREW A Ot 185 11/14/2014 CHAPIS WOLF, ANDREW A Ot V72.81 11/14/2014 CHAPIS WOLF, ANDREW Schreiber Ot V74.8 11/19/2014 DAIJA WOLF, ARIK Rogers Ot 250.00 DIAB DAVID WO COMPL, TYPE II OR UNSPEC TY 11/19/2014 DAIJA WOLF, ARIK Rogers Ot 426.11 ATRIOVENT BLOCK-1ST DEGR 11/19/2014 DAIJA WOLF, ARIK Rogers Ot 530.81 ESOPHAGEAL REFLUX 11/19/2014 ARIK CHOE MD Ot 564.00 UNSPEC CONSTIPATION 11/19/2014 ARIK CHOE MD Ot 785.0 TACHYCARDIA NOS 11/19/2014 ARIK CHOE MD Ot V12.54 PERSONAL HX OF TIA, CEREBRAL INFARCTION 11/19/2014 ARIK CHOE MD Ot V45.81 AORTOCORONARY BYPASS 11/19/2014 ARIK CHOE MD Ot V45.82 PERCUTANEOUS TRANSLUM CORON ANGIOPLASTY 12/04/2014 CHETNA WOLF, PERNELL Fermin Ot 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9 TYPE 2 DIABETES MELLITUS WITHOUT COMPLIC 06/19/2015 SEBASTIEN DO, MAGDALENA Ang Ot E78.5 HYPERLIPIDEMIA, UNSPECIFIED 06/19/2015 SEBASTIEN DO, MAGDALENA K Ot I10 ESSENTIAL (PRIMARY) HYPERTENSION 06/19/2015 [place] DO, MAGDALENA K Ot I25.10 ATHSCL HEART DISEASE OF [place] CORONARY 06/19/2015 [place] DO, MAGDALENA Ang Ot 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 06/19/2015 SEBASTIEN DO, MAGDALENA Ang Ot I48.0 PAROXYSMAL ATRIAL FIBRILLATION 06/19/2015 [place] DO, MAGDALENA Ang Ot R07.9 CHEST PAIN, UNSPECIFIED 06/20/2015 SEBASTIEN DO, MAGDALENA Ashia Ot E11.9 06/20/2015 SEBASTIEN DO, MAGDALENA Ang Ot E78.5 06/20/2015 SEBASTIEN DO, MAGDALENA Ang Ot I10 06/20/2015 [place] DO, MAGDALENA Ang Ot I25.10 06/20/2015 [facility], MAGDALENA Ang Ot I44.4 06/20/2015 [place] DO, MAGDALENA Ang Ot I48.0 06/20/2015 [facility], MAGDALEAN Ang Ot R07.9 06/30/2015 CHETNA WOLF, PERNELL Fermin Ot C61 MALIGNANT NEOPLASM OF PROSTATE 08/19/2015 [...] DO Ot V72.84 08/19/2015 BARBI WOLF, RYAN Schreiber Ot 268.9 08/19/2015 BARBI WOLF, RYAN A Ot 515 08/19/2015 BARBI WOLF, RYAN A Ot 733.90 08/19/2015 BARBI WOLF, RYAN A Ot 786.52 08/19/2015 BARBI WOLF, RYAN Schreiber Ot V45.82 08/19/2015 Ot 185 08/19/2015 Ot 592.0 08/19/2015 CHAPIS WOLF, ANDREW Schreiber Ot 185 08/19/2015 CHAPIS WOLF, ANDREW Schreiber Ot V72.81 08/19/2015 CHAPIS WOLF, ANDREW Schreiber Ot V74.8 08/19/2015 TIN SOTO DO Ot 414.00 08/19/2015 TIN SOTO DO Ot 786.09 08/19/2015 CHETNA WOLF, PERNELL Fermin Ot C61 10/28/2015 PRICE CROWE DOA Ashia Ot N13.2 HYDRONEPHROSIS WITH RENAL AND URETERAL C 10/28/2015 MAGDALENA CROWE DO Ot Z85.46 PERSONAL HISTORY OF MALIGNANT NEOPLASM O 10/28/2015 SEBASTIEN SUTHERLAND MAGDALENA Ashia Ot Z87.891 PERSONAL HISTORY OF NICOTINE DEPENDENCE [...] Schreiber Ot 515 POSTINFLAM PULM FIBROSIS 10/28/2015 RYAN LANDON MD Ot 733.90 BONE CARTILAGE DIS NOS 10/28/2015 BARBI WOLF, RYAN Schreiber Ot 786.52 PAINFUL RESPIRATION 10/28/2015 RYAN LANDON MD Ot V45.82 PERCUTANEOUS TRANSLUM CORON ANGIOPLASTY 10/28/2015 Ot 185 MALIGN NEOPL PROSTATE 10/28/2015 Ot 592.0 CALCULUS OF KIDNEY 10/28/2015 ANDREW NATION MD Ot 185 MALIGN NEOPL PROSTATE 10/28/2015 ANDREW NATION MD Ot V72.81 [id number] CARDIOVASCULAR 10/28/2015 ANDREW NATION MD Ot V74.8 SCREEN-BACTERIAL DIS NEC 10/28/2015 TIN SOTO DO Ot 414.00 CORON ATHEROSCLER NOS TYPE VESSEL, NATIV 10/28/2015 TNI SOTO DO Ot 786.09 RESPIRATORY ABNORM NEC [...] DO Ot V72.84 EXAM PRE-OPERATIVE NOS 10/30/2015 RYAN LANDON MD Ot 268.9 VITAMIN D DEFICIENCY NOS 10/30/2015 RYAN LANDON MD Ot 515 POSTINFLAM PULM FIBROSIS 10/30/2015 RYAN LANDON MD Ot 733.90 BONE CARTILAGE DIS NOS 10/30/2015 RYAN LANDON MD Ot 786.52 PAINFUL RESPIRATION 10/30/2015 RYAN LANDON MD Ot V45.82 PERCUTANEOUS TRANSLUM CORON ANGIOPLASTY 10/30/2015 Ot 185 MALIGN NEOPL PROSTATE 10/30/2015 Ot 592.0 CALCULUS OF KIDNEY 10/30/2015 ANDREW NATION MD Ot 185 MALIGN NEOPL PROSTATE 10/30/2015 ANDREW NATION MD Ot V72.81 [id number] CARDIOVASCULAR 10/30/2015 ANDREW NATION MD Ot V74.8 SCREEN-BACTERIAL DIS NEC 10/30/2015 TIN SOTO DO Ot 414.00 CORON ATHEROSCLER NOS TYPE VESSEL, NATIV 10/30/2015 TIN SOTO DO Ot 786.09 RESPIRATORY ABNORM NEC 10/30/2015 CHETNA WOLF, PERNELL Fermin Ot C61 MALIGNANT NEOPLASM OF PROSTATE 10/30/2015 ANDRE[place] NATION MD Ot N20.0 CALCULUS OF KIDNEY 10/30/2015 [place] MD Ot Z01.818 ENCOUNTER FOR OTHER PREPROCEDURAL EXAMIN 11/03/2015 CHAPIS WOLF, ANDREW Schreiber Ot N20.0 CALCULUS OF KIDNEY 11/03/2015 CHAPIS WOLF, ANDREW Schreiber Ot Z79.899 OTHER CORRECTION (CURRENT) DRUG THERAPY 11/04/2015 CHAPIS WOLF, ANDREW Schreiber Ot N20.0 CALCULUS OF KIDNEY 11/04/2015 CHAPIS WOLF, ANDREW Schreiber Ot Z79.899 OTHER CORRECTION (CURRENT) DRUG THERAPY 11/04/2015 CHAPIS WOLF, ANDREW Schreiber Ot N20.0 CALCULUS OF KIDNEY 11/04/2015 CHAPIS WOLF, ANDREW Schreiber Ot Z79.899 OTHER APPLE PACKING HEADER (CURRENT) DRUG THERAPY 11/17/2015 Ot 140.0 MAL [...] Ot 733.90 BONE CARTILAGE DIS NOS 11/17/2015 BARBI WOLF, RYAN Schreiber Ot 786.52 PAINFUL RESPIRATION 11/17/2015 BARBI WOLF, RYAN Schreiber Ot V45.82 PERCUTANEOUS TRANSLUM CORON ANGIOPLASTY 11/17/2015 Ot 185 MALIGN NEOPL PROSTATE 11/17/2015 Ot 592.0 CALCULUS OF KIDNEY 11/17/2015 [place] NATION MD Ot 185 MALIGN NEOPL PROSTATE 11/17/2015 CHAPIS WOLF, ANDREW Schreiber Ot V72.81 [id number] CARDIOVASCULAR 11/17/2015 [place] MD Ot V74.8 [...] Z01.818 ENCOUNTER FOR OTHER PREPROCEDURAL EXAMIN 01/28/2016 MISSY WOLF, JEFF Fonseca Ot R19.5 OTHER FECAL ABNORMALITIES 01/28/2016 MISSY WOLF, JEFF Fonseca Ot Z01.818 ENCOUNTER FOR OTHER PREPROCEDURAL EXAMIN 01/29/2016 Ot 785.1 PALPITATIONS 01/29/2016 CHETNA WOLF, PERNELL E Ot C61 MALIGNANT NEOPLASM OF PROSTATE 01/29/2016 JEFF LOUIS MD Ot E11.9 TYPE 2 DIABETES MELLITUS WITHOUT COMPLIC 01/29/2016 JEFF LOUIS MD Ot I48.91 UNSPECIFIED ATRIAL FIBRILLATION 01/29/2016 JEFF LOUIS MD Ot K62.5 HEMORRHAGE OF ANUS AND RECTUM 01/29/2016 JEFF LOUIS MD Ot Z79.01 CORRECTION (CURRENT) USE OF ANTICOAGULANT 02/01/2016 JEFF LOUIS MD Ot E11.9 TYPE 2 DIABETES MELLITUS WITHOUT COMPLIC 02/01/2016 JEFF LOUIS MD Ot I48.91 UNSPECIFIED ATRIAL FIBRILLATION 02/01/2016 JEFF LOUIS MD Ot K62.5 HEMORRHAGE OF ANUS AND RECTUM 02/01/2016 JEFF LOUIS MD, Ot Z79.01 CORRECTION (CURRENT) USE OF ANTICOAGULANT 03/24/2016 TIN SOTO [...] Schreiber Ot 515 POSTINFLAM PULM FIBROSIS 03/24/2016 RYAN LANDON MD Ot 733.90 BONE CARTILAGE DIS NOS 03/24/2016 BARBI WOLF, RYAN Schreiber Ot 786.52 PAINFUL RESPIRATION 03/24/2016 RYAN LANDON MD Ot V45.82 PERCUTANEOUS TRANSLUM CORON ANGIOPLASTY 03/24/2016 Ot 185 MALIGN NEOPL PROSTATE 03/24/2016 Ot 592.0 CALCULUS OF KIDNEY 03/24/2016 ANDREW NATION MD Ot 185 MALIGN NEOPL PROSTATE 03/24/2016 ANDREW NATION MD Ot V72.81 [id number] CARDIOVASCULAR 03/24/2016 ANDREW NATION MD Ot V74.8 [...] MD Ot R07.9 CHEST PAIN, UNSPECIFIED 04/14/2016 WHITE MD, ZHANNA J Ot R07.9 CHEST PAIN, UNSPECIFIED 04/20/2016 DEMAR WOLF, ZHANNA Suazo Ot R07.9 CHEST PAIN, UNSPECIFIED 04/26/2016 DAO SUTHERLAND, RAFAL Schreiber Ot D69.6 THROMBOCYTOPENIA, UNSPECIFIED 04/26/2016 DAO SUTHERLAND, RAFAL Schreiber Ot E11.9 TYPE 2 DIABETES MELLITUS WITHOUT COMPLIC 04/26/2016 DAO SUTHERLAND, RAFAL Schreiber Ot E78.00 PURE HYPERCHOLESTEROLEMIA, UNSPECIFIED 04/26/2016 DAO DO, RAFAL Schreiber Ot E78.5 HYPERLIPIDEMIA, UNSPECIFIED 04/26/2016 AMARISDER DO, RAFAL Schreiber Ot G47.30 SLEEP APNEA, UNSPECIFIED 04/26/2016 DAO SUTHERLAND, RAFAL Schreiber Ot I10 ESSENTIAL (PRIMARY) HYPERTENSION 04/26/2016 DAO SUTHERLAND, RAFAL Schreiber Ot I25.119 ATHSCL HEART DISEASE OF [place] COR ART W 04/26/2016 DAO SUTHERLANDRAFAL Ot I48.91 UNSPECIFIED ATRIAL FIBRILLATION 04/26/2016 DAO SUTHERLANDRAFAL Ot K29.80 DUODENITIS WITHOUT BLEEDING 04/26/2016 DAO SUTHERLANDRAFAL Ot N39.0 URINARY TRACT INFECTION, SITE NOT SPECIF 04/26/2016 DAO SUTHERLANDRAFAL Ot R50.9 FEVER, UNSPECIFIED 04/26/2016 DAO SUTHERLANDRAFAL Ot R53.1 WEAKNESS 04/26/2016 DAO SUTHERLANDRAFAL Ot R74.8 ABNORMAL LEVELS OF OTHER SERUM ENZYMES 04/26/2016 DAO SUTHERLANDRAFAL Ot Z23 ENCOUNTER FOR IMMUNIZATION 04/26/2016 DAO SUTHERLAND, RAFAL Schreiber Ot Z79.84 CORRECTION (CURRENT) USE OF ORAL HYPOGLYC 04/26/2016 DAO SUTHERLANDRAFAL Ot Z85.46 PERSONAL HISTORY OF MALIGNANT NEOPLASM O 04/26/2016 DAO SUTHERLANDRAFAL Ot Z87.891 PERSONAL HISTORY OF NICOTINE DEPENDENCE 04/26/2016 DAO SUTHERLANDRAFAL Ot Z91.81 HISTORY OF FALLING 04/26/2016 DAO SUTHERLANDRAFAL Ot Z92.3 PERSONAL HISTORY OF IRRADIATION 04/26/2016 DAO SUTHERLANDRAFAL Ot Z95.1 PRESENCE OF AORTOCORONARY BYPASS GRAFT 04/26/2016 DAO SUTHERLANDRAFAL Ot Z95.5 PRESENCE OF CORONARY ANGIOPLASTY IMPLANT 04/27/2016 GELLENDER DO, RAFAL Schreiber Ot D69.6 THROMBOCYTOPENIA, UNSPECIFIED 04/27/2016 GELLENDER DO, RAFAL Schreiber Ot E11.9 TYPE 2 DIABETES MELLITUS WITHOUT COMPLIC 04/27/2016 [facility] RAFAL Schreiber Ot E78.00 PURE HYPERCHOLESTEROLEMIA, UNSPECIFIED 04/27/2016 GELLENDER DO, RAFAL Schreiber Ot E78.5 HYPERLIPIDEMIA, UNSPECIFIED 04/27/2016 [facility], RAFAL Schreiber Ot G47.30 SLEEP APNEA, UNSPECIFIED 04/27/2016 [facility], RAFAL Schreiber Ot I10 ESSENTIAL (PRIMARY) HYPERTENSION 04/27/2016 [facility], RAFAL Schreiber Ot I25.119 ATHSCL HEART DISEASE OF [place] COR ART W 04/27/2016 [facility], RAFAL Schreiber Ot I48.91 UNSPECIFIED ATRIAL FIBRILLATION 04/27/2016 [facility] DO, RAFAL Schreiber Ot K29.80 DUODENITIS WITHOUT BLEEDING 04/27/2016 [facility], RAFAL Schreiber Ot N39.0 URINARY TRACT INFECTION, SITE NOT SPECIF 04/27/2016 [facility], RAFAL Schreiber Ot R50.9 FEVER, UNSPECIFIED 04/27/2016 [facility], RAFAL Schreiber Ot R53.1 WEAKNESS 04/27/2016 [facility], RAFAL Schreiber Ot R74.8 ABNORMAL LEVELS OF OTHER SERUM ENZYMES 04/27/2016 [facility], RAFAL Schreiber Ot T46.2X1A POISONING BY OTH ANTIDYSRHYTHMIC DRUGS, 04/27/2016 [facility] RAFAL Ot Z23 ENCOUNTER FOR IMMUNIZATION 04/27/2016 [facility], RAFAL Schreiber Ot Z79.84 APPLE PACKING HEADER (CURRENT) USE OF ORAL HYPOGLYC 04/27/2016 [facility] Ot Z85.46 PERSONAL HISTORY OF MALIGNANT NEOPLASM O 04/27/2016 [facility] RAFAL Ot Z87.891 PERSONAL HISTORY OF NICOTINE DEPENDENCE 04/27/2016 [facility] Ot Z91.81 HISTORY OF FALLING 04/27/2016 [facility] Ot Z92.3 PERSONAL HISTORY OF IRRADIATION 04/27/2016 [facility], RAFAL Schreiber Ot Z95.1 PRESENCE OF AORTOCORONARY BYPASS GRAFT 04/27/2016 [facility] Ot Z95.5 PRESENCE OF CORONARY ANGIOPLASTY IMPLANT 04/27/2016 [facility], RAFAL Schreiber Ot D69.6 THROMBOCYTOPENIA, UNSPECIFIED 04/27/2016 GELLENDER DO, RAFAL Schreiber Ot E11.9 TYPE 2 DIABETES MELLITUS WITHOUT COMPLIC 04/27/2016 LASHAWNLENDER DO, RAFAL Schreiber Ot E78.00 PURE HYPERCHOLESTEROLEMIA, UNSPECIFIED 04/27/2016 GELLENDER DO, RAFAL Schreiber Ot E78.5 HYPERLIPIDEMIA, UNSPECIFIED 04/27/2016 GELLENDER DO, RAFAL Schreiber Ot G47.30 SLEEP APNEA, UNSPECIFIED 04/27/2016 AMARISDER , RAFAL Schreiber Ot I10 ESSENTIAL (PRIMARY) HYPERTENSION 04/27/2016 LASHAWNLENDER DO, ARFAL Schreiber Ot I25.119 ATHSCL HEART DISEASE OF [place] COR ART W 04/27/2016 AMARISDER DO, RAFAL Schreiber Ot I48.91 UNSPECIFIED ATRIAL FIBRILLATION 04/27/2016 DAO DORAFAL Ot K29.80 DUODENITIS WITHOUT BLEEDING 04/27/2016 DAO SUTHERLANDRAFAL Ot N39.0 URINARY TRACT INFECTION, SITE NOT SPECIF 04/27/2016 DAO SUTHERLANDRAFAL Ot R50.9 FEVER, UNSPECIFIED 04/27/2016 AMARISDER DORAFAL Ot R53.1 WEAKNESS 04/27/2016 DAO DORAFAL Ot R74.8 ABNORMAL LEVELS OF OTHER SERUM ENZYMES 04/27/2016 DAO SUTHERLANDRAFAL Ot Z23 ENCOUNTER FOR IMMUNIZATION 04/27/2016 DAO SUTHERLAND, RAFAL Schreiber Ot Z79.84 CORRECTION (CURRENT) USE OF ORAL HYPOGLYC 04/27/2016 DAO SUTHERLANDRAFAL Ot Z85.46 PERSONAL HISTORY OF MALIGNANT NEOPLASM O 04/27/2016 DAO SUTHERLANDRAFAL Ot Z87.891 PERSONAL HISTORY OF NICOTINE DEPENDENCE 04/27/2016 DAO SUTHERLANDRAFAL Ot Z91.81 HISTORY OF FALLING 04/27/2016 DAO DORAFAL Ot Z92.3 PERSONAL HISTORY OF IRRADIATION 04/27/2016 [facility] Ot Z95.1 PRESENCE OF AORTOCORONARY BYPASS GRAFT 04/27/2016 DAO DORAFAL Ot Z95.5 PRESENCE OF CORONARY ANGIOPLASTY IMPLANT 04/27/2016 DAO DORAFAL Ot D69.6 THROMBOCYTOPENIA, UNSPECIFIED 04/27/2016 AMARISDER DORAFAL Ot E11.9 TYPE 2 DIABETES MELLITUS WITHOUT COMPLIC 04/27/2016 DAO SUTHERLANDRAFAL Ot E78.00 PURE HYPERCHOLESTEROLEMIA, UNSPECIFIED 04/27/2016 DAO SUTHERLANDRAFAL Ot E78.5 HYPERLIPIDEMIA, UNSPECIFIED 04/27/2016 DAO SUTHERLANDRAFAL Ot G47.30 SLEEP APNEA, UNSPECIFIED 04/27/2016 DAO SUTHERLANDRAFAL Ot I10 ESSENTIAL (PRIMARY) HYPERTENSION 04/27/2016 DAO SUTHERLANDRAFAL Ot I25.119 ATHSCL HEART DISEASE OF [place] COR ART W 04/27/2016 [facility] Ot I48.91 UNSPECIFIED ATRIAL FIBRILLATION 04/27/2016 [facility]WNC[facility]ENOIT[facility]AL Ot K29.80 DUODENITIS WITHOUT BLEEDING 04/27/2016 DAO SUTHERLANDRAFAL Ot N39.0 URINARY TRACT INFECTION, SITE NOT SPECIF 04/27/2016 DAO SUTHERLANDRAFAL Ot R50.9 FEVER, UNSPECIFIED 04/27/2016 DAO SUTHERLANDRAFAL Ot R53.1 WEAKNESS 04/27/2016 DAO SUTHERLANDRAFAL Ot R74.8 ABNORMAL LEVELS OF OTHER SERUM ENZYMES 04/27/2016 DAO SUTHERLANDRAFAL Ot Z23 ENCOUNTER FOR IMMUNIZATION 04/27/2016 [facility]NC[facility]ENO[facility]RAFAL Ot Z79.84 CORRECTION (CURRENT) USE OF ORAL HYPOGLYC 04/27/2016 [facility]HAWNC.[facility]ITAL[facility]ENOITRAFAL Ot Z85.46 PERSONAL HISTORY OF MALIGNANT NEOPLASM O 04/27/2016 DAO SUTHERLANDRAFAL Ot Z87.891 PERSONAL HISTORY OF NICOTINE DEPENDENCE 04/27/2016 DAO SUTHERLANDRAFAL Ot Z91.81 HISTORY OF FALLING 04/27/2016 DAO SUTHERLANDRAFAL Ot Z92.3 PERSONAL HISTORY OF IRRADIATION 04/27/2016 [facility] Ot Z95.1 PRESENCE OF AORTOCORONARY BYPASS GRAFT 04/27/2016 [facility] Ot Z95.5 PRESENCE OF CORONARY ANGIOPLASTY IMPLANT 04/29/2016 RYAN LANDON MD Ot D69.6 THROMBOCYTOPENIA, UNSPECIFIED 04/29/2016 RYAN LANDON MD Ot E11.9 TYPE 2 DIABETES MELLITUS WITHOUT COMPLIC 04/29/2016 RYAN LANDON MD Ot E78.00 PURE HYPERCHOLESTEROLEMIA, UNSPECIFIED 04/29/2016 RYAN LANDON MD Ot E78.5 HYPERLIPIDEMIA, UNSPECIFIED 04/29/2016 RYAN LANDON MD Ot G47.30 SLEEP APNEA, UNSPECIFIED 04/29/2016 RYAN LANDON MD, Ot I10 ESSENTIAL (PRIMARY) HYPERTENSION 04/29/2016 RYAN LANDON MD Ot I25.119 ATHSCL HEART DISEASE OF [place] COR ART W 04/29/2016 RYAN LANDON MD Ot I48.91 UNSPECIFIED ATRIAL FIBRILLATION 04/29/2016 RYAN LANDON MD Ot K29.80 DUODENITIS WITHOUT BLEEDING 04/29/2016 RYAN LANDON MD Ot R50.9 FEVER, UNSPECIFIED 04/29/2016 RYAN LANDON MD Ot R53.1 WEAKNESS 04/29/2016 RYAN LANDON MD Ot R74.8 ABNORMAL LEVELS OF OTHER SERUM ENZYMES 04/29/2016 RYAN LANDON MD Ot T46.2X1D POISONING BY OTH ANTIDYSRHYTHMIC DRUGS, 04/29/2016 RYAN LANDON MD Ot Z79.84 CORRECTION (CURRENT) USE OF ORAL HYPOGLYC 04/29/2016 RYAN [...] MD Ot I25.119 ATHSCL HEART DISEASE OF [place] COR ART W 05/02/2016 RYAN LANDON MD Ot 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 05/02/2016 RYAN LANDON MD Ot I48.91 UNSPECIFIED ATRIAL FIBRILLATION 05/02/2016 RYAN LANDON MD Ot I50.30 UNSPECIFIED DIASTOLIC (CONGESTIVE) HEART 05/02/2016 RYAN LANDON MD Ot R06.09 OTHER FORMS OF DYSPNEA 05/02/2016 RYAN LANDON MD Ot R14.0 ABDOMINAL DISTENSION (GASEOUS) 05/02/2016 RYAN LANDON MD Ot R53.1 WEAKNESS 05/02/2016 RYAN LANDON MD Ot R60.0 LOCALIZED EDEMA 05/02/2016 RYAN LANDON MD Ot R74.8 ABNORMAL LEVELS OF OTHER SERUM ENZYMES 05/02/2016 RYAN LANDON MD, Ot T46.2X1D POISONING BY OTH ANTIDYSRHYTHMIC DRUGS, 05/02/2016 RYAN LANDON MD Ot Z79.84 APPLE PACKING HEADER (CURRENT) USE OF ORAL HYPOGLYC 05/02/2016 RYAN LANDON MD Ot Z85.46 PERSONAL HISTORY [...] G47.33 OBSTRUCTIVE SLEEP APNEA (ADULT) (PEDIATR 05/30/2016 JAMIL MONTERO APRN Ot G47.33 OBSTRUCTIVE SLEEP APNEA (ADULT) (PEDIATR 05/30/2016 JAMIL MONTERO APRN Ot G47.33 OBSTRUCTIVE SLEEP [...] RYAN Schreiber Ot 786.52 PAINFUL RESPIRATION 07/14/2016 RYAN LANDON MD Ot V45.82 PERCUTANEOUS TRANSLUM CORON ANGIOPLASTY 07/14/2016 Ot 185 MALIGN NEOPL PROSTATE 07/14/2016 Ot 592.0 CALCULUS OF KIDNEY 07/14/2016 ANDREW NATION MD Ot 185 MALIGN NEOPL PROSTATE 07/14/2016 ANDREW NATION MD Ot V72.81 [id number] CARDIOVASCULAR 07/14/2016 ANDREW NATION MD Ot V74.8 [...] MD Ot R07.9 CHEST PAIN, UNSPECIFIED 07/14/2016 BARBI WOLF, RYAN Schreiber Ot M54.5 LOW BACK PAIN 07/14/2016 RYAN [...] PROSTATE 02/22/2017 ANDREW NATION MD Ot V72.81 [id number] CARDIOVASCULAR 02/22/2017 ANDREW NATION MD Ot V74.8 SCREEN-BACTERIAL DIS NEC 02/22/2017 TIN SOTO DO Ot 414.00 CORON ATHEROSCLER NOS TYPE VESSEL, NATIV 02/22/2017 TIN SOTO DO Ot 786.09 RESPIRATORY ABNORM NEC 02/22/2017 CHETNA WOLF, PERNELL Fermin Ot C61 MALIGNANT NEOPLASM OF PROSTATE 02/22/2017 ANDREW NATION MD, Ot N20.0 CALCULUS OF KIDNEY 02/22/2017 ANDREW NATION MD, Ot Z09 ENCNTR FOR F/U EXAM AFT TRTMT FOR COND O 02/22/2017 ZHANNA BENZ MD Ot R07.9 CHEST PAIN, UNSPECIFIED 02/28/2017 Ot 785.1 PALPITATIONS 02/28/2017 CHETNA WOLF, PERNELL Fermin Ot C61 MALIGNANT NEOPLASM OF PROSTATE 03/01/2017 SAMUEL WOLF [facility], ALI FACP CCDS Ot E66.09 OTHER OBESITY DUE TO EXCESS CALORIES 03/01/2017 SAMUEL WOLF FACC, ALI FACP CCDS Ot E78.4 OTHER HYPERLIPIDEMIA 03/01/2017 SAMUEL WOLF [facility], ALI FACP CCDS Ot I10 ESSENTIAL (PRIMARY) HYPERTENSION 03/01/2017 SAMUEL WOLF [facility], ALI FACP CCDS Ot I48.0 PAROXYSMAL ATRIAL FIBRILLATION 03/01/2017 SAMUEL WOLF [facility], ALI FACP CCDS Ot 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 03/01/2017 SAMUEL WOLF FACC, ALI FACP CCDS Ot R06.09 OTHER FORMS OF DYSPNEA 03/01/2017 SAMUEL WOLF FACC, ALI FACP CCDS Ot [...] PROSTATE 03/08/2017 ANDREW NATION MD Ot V72.81 [id number] CARDIOVASCULAR 03/08/2017 ANDREW NATION MD Ot V74.8 SCREEN-BACTERIAL DIS NEC 03/08/2017 TIN SOTO DO Ot 414.00 CORON ATHEROSCLER NOS TYPE VESSEL, NATIV 03/08/2017 TIN SOTO DO Ot 786.09 RESPIRATORY ABNORM NEC 03/08/2017 CHETNA WOLF, PERNELL Fermin Ot C61 MALIGNANT NEOPLASM OF PROSTATE 03/08/2017 CHAPIS WOLF, ANDREW Schreiber Ot N20.0 CALCULUS OF KIDNEY 03/08/2017 ANDREW NATION MD Ot Z09 ENCNTR FOR F/U EXAM AFT TRTMT FOR COND O 03/08/2017 DEMAR WOLF, ZHANNA Suazo Ot R07.9 CHEST PAIN, UNSPECIFIED 03/08/2017 SAMUEL WOLF FAC, ALI FACP CCDS Ot [...] OTHER FORMS OF DYSPNEA 03/08/2017 SAMUEL WOLF FAC, ALI FACP CCDS Ot [...] MD Ot I25.10 ATHSCL HEART DISEASE OF [place] CORONARY 03/19/2017 RYAN LANDON MD Ot I48.2 CHRONIC ATRIAL FIBRILLATION 03/19/2017 RYAN LANDON MD Ot I51.7 CARDIOMEGALY 03/19/2017 RYAN LANDON MD Ot K21.9 GASTRO-ESOPHAGEAL REFLUX DISEASE WITHOUT 03/19/2017 RYAN LANDON MD Ot N40.0 BENIGN PROSTATIC HYPERPLASIA WITHOUT LOW 03/19/2017 RYAN LANDON MD Ot R07.9 CHEST PAIN, UNSPECIFIED 03/19/2017 RYAN LANDON MD Ot Z79.01 CORRECTION (CURRENT) USE OF ANTICOAGULANT 03/19/2017 RYAN LANDON MD Ot Z79.899 OTHER CORRECTION (CURRENT) DRUG THERAPY 03/19/2017 RYAN LANDON MD, [...] I10 ESSENTIAL (PRIMARY) HYPERTENSION 03/19/2017 RYAN LANDON MD, Ot I25.10 ATHSCL HEART DISEASE OF [place] CORONARY 03/19/2017 RYAN LANDON MD Ot I48.2 CHRONIC ATRIAL FIBRILLATION 03/19/2017 RYAN LANDON MD, Ot I51.7 CARDIOMEGALY 03/19/2017 RYAN LANDON MD, Ot K21.9 GASTRO-ESOPHAGEAL REFLUX DISEASE WITHOUT 03/19/2017 RYAN LANDON MD Ot N40.0 BENIGN PROSTATIC HYPERPLASIA WITHOUT LOW 03/19/2017 RYAN LANDON MD Ot R07.9 CHEST PAIN, UNSPECIFIED 03/19/2017 RYAN LANDON MD, Ot Z79.01 APPLE PACKING HEADER (CURRENT) USE OF ANTICOAGULANT 03/19/2017 RYAN LANDON MD, Ot Z79.899 OTHER APPLE PACKING HEADER (CURRENT) DRUG THERAPY 03/19/2017 RYAN LANDON MD, [...] AND STENOSIS OF BILATERAL LEE 03/22/2017 SAMUEL RICHARDC, ALI FACP CCDS Ot R06.09 OTHER FORMS OF DYSPNEA 03/22/2017 SAMUEL RICHARDC, ALI FACP CCDS Ot R53.83 OTHER FATIGUE 03/28/2017 SAMUEL RICHARDC, ALI FACP CCDS Ot E66.09 OTHER OBESITY DUE TO EXCESS CALORIES 03/28/2017 SAMUEL RICHARDC, ALI FACP CCDS Ot E78.4 OTHER HYPERLIPIDEMIA 03/28/2017 SAMUEL RICHARDC, ALI FACP CCDS Ot I10 ESSENTIAL (PRIMARY) HYPERTENSION 03/28/2017 SAMUEL RICHARDC, ALI FACP CCDS Ot I48.0 PAROXYSMAL ATRIAL FIBRILLATION 03/28/2017 SAMUEL WOLF FACC, ALI FACP CCDS Ot 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 03/28/2017 SAMUEL RICHARDC, ALI FACP CCDS Ot R06.09 OTHER FORMS OF DYSPNEA 03/28/2017 SAMUEL RICHARDC, ALI FACP CCDS Ot R53.83 OTHER FATIGUE [...] STENOSIS OF BILATERAL LEE 03/30/2017 SAMUEL WOLF [facility], ALI FACP CCDS Ot R06.09 OTHER FORMS OF DYSPNEA 03/30/2017 SAMUEL WOLF FACC, ALI FACP CCDS Ot R53.83 OTHER FATIGUE 04/05/2017 SAMUEL WOLF FACC, ALI FACP CCDS Ot E66.09 OTHER OBESITY DUE TO EXCESS CALORIES 04/05/2017 SAMUEL WOLF FAC, ALI FACP CCDS Ot E78.4 OTHER HYPERLIPIDEMIA 04/05/2017 SAMUEL WOLF FAC, ALI FACP CCDS Ot I10 ESSENTIAL (PRIMARY) HYPERTENSION 04/05/2017 SAMUEL WOLF FAC, ALI FACP CCDS Ot I48.0 PAROXYSMAL ATRIAL FIBRILLATION 04/05/2017 SAMUEL WOLF FACC, ALI FACP CCDS Ot 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 04/05/2017 SAMUEL WOLF FACC, ALI FACP CCDS Ot R06.09 OTHER FORMS OF DYSPNEA 04/05/2017 SAMUEL WOLF [facility], ALI FACP CCDS Ot R53.83 OTHER FATIGUE [...] MD Ot I25.10 ATHSCL HEART DISEASE OF [place] CORONARY 05/12/2017 Kwadwo CARRASCO MD Ot I44.60 [...] ADULT 05/12/2017 Kwadwo CARRASCO MD Ot Z79.01 APPLE PACKING HEADER (CURRENT) USE OF ANTICOAGULANT 05/12/2017 Kwadwo CARRASCO MD Ot Z79.899 OTHER CORRECTION (CURRENT) DRUG THERAPY 05/12/2017 Kwadwo CARRASCO MD, Ot Z87.891 PERSONAL HISTORY OF NICOTINE DEPENDENCE 05/12/2017 Kwadwo CARRASCO MD, Ot Z95.1 PRESENCE OF AORTOCORONARY BYPASS GRAFT 05/12/2017 Kwadwo CARRSACO MD Ot Z95.5 PRESENCE OF CORONARY ANGIOPLASTY IMPLANT 05/25/2017 Kwadwo CARRASCO MD Ot E11.9 TYPE 2 DIABETES MELLITUS WITHOUT COMPLIC 05/25/2017 Kwadwo CARRASCO MD Ot E66.8 OTHER OBESITY 05/25/2017 Kwadwo CARRASCO MD, Ot E78.5 HYPERLIPIDEMIA, UNSPECIFIED 05/25/2017 Kwadwo CARRASCO MD Ot G47.33 OBSTRUCTIVE SLEEP APNEA (ADULT) (PEDIATR 05/25/2017 Kwadwo CARRASCO MD Ot I10 ESSENTIAL (PRIMARY) HYPERTENSION 05/25/2017 Kwadwo CARRASCO MD Ot I25.10 ATHSCL HEART DISEASE OF [place] CORONARY 05/25/2017 Kwadwo CARRASCO MD Ot I44.60 UNSPECIFIED FASCICULAR BLOCK 05/25/2017 Kwadwo CARRASCO MD Ot I48.0 PAROXYSMAL ATRIAL FIBRILLATION 05/25/2017 Kwadwo CARRASCO MD Ot K21.9 GASTRO-ESOPHAGEAL REFLUX DISEASE WITHOUT 05/25/2017 Kwadwo CARRASCO MD Ot R00.0 TACHYCARDIA, UNSPECIFIED 05/25/2017 Kwadwo CARRASCO MD Ot R00.1 BRADYCARDIA, UNSPECIFIED 05/25/2017 Kwadwo CARRASCO MD Ot R53.83 OTHER FATIGUE 05/25/2017 Kwadwo CARRASCO MD, Ot Z68.34 BODY MASS INDEX (BMI) 34.0-34.9, ADULT 05/25/2017 Kwadwo CARRASCO MD Ot Z79.01 APPLE PACKING HEADER (CURRENT) USE OF ANTICOAGULANT 05/25/2017 Kwadwo CARRASCO MD Ot Z79.899 OTHER CORRECTION (CURRENT) DRUG THERAPY 05/25/2017 Kwadwo CARRASCO MD, [...] MD Ot I25.10 ATHSCL HEART DISEASE OF [place] CORONARY 06/05/2017 Kwadwo CARRASCO MD Ot I44.60 [...] ADULT 06/05/2017 Kwadwo CARRASCO MD Ot Z79.01 APPLE PACKING HEADER (CURRENT) USE OF ANTICOAGULANT 06/05/2017 Kwadwo CARRASCO MD Ot Z79.899 OTHER CORRECTION (CURRENT) DRUG THERAPY 06/05/2017 Kwadwo CARRASCO MD, Ot Z87.891 PERSONAL HISTORY OF NICOTINE DEPENDENCE 06/05/2017 Kwadwo CARRASCO MD Ot Z95.1 PRESENCE OF AORTOCORONARY BYPASS GRAFT 06/05/2017 Kwadwo CARRASCO MD Ot Z95.5 PRESENCE OF CORONARY ANGIOPLASTY IMPLANT 06/12/2017 Ot 785.1 PALPITATIONS 06/12/2017 CHETNA WOLF, PERNELL Fermin Ot C61 MALIGNANT NEOPLASM OF PROSTATE 06/13/2017 Kwadwo CARRASCO MD Ot I46.9 CARDIAC ARREST, CAUSE UNSPECIFIED 06/13/2017 Kwadwo CARRASCO MD Ot I48.0 PAROXYSMAL ATRIAL FIBRILLATION 06/15/2017 Kwadwo CARRASCO MD Ot E11.9 TYPE 2 DIABETES MELLITUS WITHOUT COMPLIC 06/15/2017 Kwadwo CARRASCO MD Ot E66.9 OBESITY, UNSPECIFIED 06/15/2017 Kwadwo CARRASCO MD Ot 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 06/15/2017 Kwadwo CARRASCO MD Ot E78.5 HYPERLIPIDEMIA, UNSPECIFIED 06/15/2017 Kwadwo CARRASCO MD Ot G47.33 OBSTRUCTIVE SLEEP APNEA (ADULT) (PEDIATR 06/15/2017 Kwadwo CARRASCO MD Ot I10 ESSENTIAL (PRIMARY) HYPERTENSION 06/15/2017 Kwadwo CARRASCO MD Ot I25.119 ATHSCL HEART DISEASE OF [place] COR ART W 06/15/2017 Kwadwo CARRASCO MD Ot I46.9 CARDIAC ARREST, CAUSE UNSPECIFIED 06/15/2017 Kwadwo CARRASCO MD Ot I48.0 PAROXYSMAL ATRIAL FIBRILLATION 06/15/2017 Kwadwo CARRASCO MD Ot I49.5 SICK SINUS SYNDROME 06/15/2017 Kwadwo CARRASCO MD Ot K21.9 GASTRO-ESOPHAGEAL REFLUX DISEASE WITHOUT 06/15/2017 Kwadwo CARRASCO MD Ot M25.552 PAIN IN LEFT HIP 06/15/2017 Kwadwo CARRASCO MD Ot Z68.35 BODY MASS INDEX (BMI) 35.0-35.9, ADULT 06/15/2017 Kwadwo CARRASCO MD Ot Z95.1 PRESENCE OF AORTOCORONARY BYPASS GRAFT 06/21/2017 Kwadwo CARRASCO MD Ot E11.9 TYPE 2 DIABETES MELLITUS WITHOUT COMPLIC 06/21/2017 Kwadwo CARRASCO MD Ot E66.9 OBESITY, UNSPECIFIED 06/21/2017 Kwadwo CARRASCO MD Ot 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 06/21/2017 Kwadwo CARRASCO MD Ot E78.5 HYPERLIPIDEMIA, UNSPECIFIED 06/21/2017 Kwadwo CARRASCO MD Ot G47.33 OBSTRUCTIVE SLEEP APNEA (ADULT) (PEDIATR 06/21/2017 Kwadwo CARRASCO MD Ot I10 ESSENTIAL (PRIMARY) HYPERTENSION 06/21/2017 Kwawdo CARRASCO MD Ot I25.119 ATHSCL HEART DISEASE OF [place] COR ART W 06/21/2017 Kwadwo CARRASCO MD Ot I46.9 CARDIAC ARREST, CAUSE UNSPECIFIED 06/21/2017 Kwadwo CARRASCO MD Ot I48.0 PAROXYSMAL ATRIAL FIBRILLATION 06/21/2017 Kwadwo CARRASCO MD Ot I49.5 SICK SINUS SYNDROME 06/21/2017 Kwadwo CARRASCO MD Ot K21.9 GASTRO-ESOPHAGEAL REFLUX DISEASE WITHOUT 06/21/2017 Kwadwo CARRASCO MD Ot M25.552 PAIN IN LEFT HIP 06/21/2017 Kwadwo CARRASCO MD Ot Z68.35 BODY MASS INDEX (BMI) 35.0-35.9, ADULT 06/21/2017 Kwadwo CARRASCO MD Ot Z95.1 PRESENCE OF AORTOCORONARY BYPASS GRAFT 06/22/2017 Kwadwo CARRASCO MD Ot E11.9 TYPE 2 DIABETES MELLITUS WITHOUT COMPLIC 06/22/2017 Kwadwo CARRASCO MD Ot E66.8 OTHER OBESITY 06/22/2017 KHALID MD, M MERVIN Ot E78.5 HYPERLIPIDEMIA, UNSPECIFIED 06/22/2017 Kwadwo CARRASCO MD, Ot G47.33 OBSTRUCTIVE SLEEP APNEA (ADULT) (PEDIATR 06/22/2017 Kwadwo CARRASCO MD Ot I10 ESSENTIAL (PRIMARY) HYPERTENSION 06/22/2017 Kwadwo CARRASCO MD Ot I25.10 ATHSCL HEART DISEASE OF [place] CORONARY 06/22/2017 Kwadwo CARRASCO MD Ot I44.60 UNSPECIFIED FASCICULAR BLOCK 06/22/2017 Kwadwo CARRASCO MD Ot I48.0 PAROXYSMAL ATRIAL FIBRILLATION 06/22/2017 Kwadwo CARRASCO MD Ot K21.9 GASTRO-ESOPHAGEAL REFLUX DISEASE WITHOUT 06/22/2017 Kwadwo CARRASCO MD Ot R00.0 TACHYCARDIA, UNSPECIFIED 06/22/2017 Kwadwo CARRASCO MD Ot R00.1 BRADYCARDIA, UNSPECIFIED 06/22/2017 Kwadwo CARRASCO MD Ot R53.83 OTHER FATIGUE 06/22/2017 Kwadwo CARRASCO MD Ot Z68.34 BODY MASS INDEX (BMI) 34.0-34.9, ADULT 06/22/2017 Kwadwo CARRASCO MD Ot Z79.01 APPLE PACKING HEADER (CURRENT) USE OF ANTICOAGULANT 06/22/2017 Kwadwo CARRASCO MD Ot Z79.899 OTHER CORRECTION (CURRENT) DRUG THERAPY 06/22/2017 Kwadwo CARRASCO MD Ot Z87.891 PERSONAL HISTORY OF NICOTINE DEPENDENCE 06/22/2017 Kwadwo CARRASCO MD Ot Z95.1 PRESENCE OF AORTOCORONARY BYPASS GRAFT 06/22/2017 Kwadwo CARRASCO MD Ot Z95.5 PRESENCE OF CORONARY ANGIOPLASTY IMPLANT 06/28/2017 Kwadwo CARRASCO MD Ot E11.9 TYPE 2 DIABETES MELLITUS WITHOUT COMPLIC 06/28/2017 Kwadwo CARRASCO MD Ot E66.8 OTHER OBESITY 06/28/2017 Kwadwo CARRASCO MD Ot E78.5 HYPERLIPIDEMIA, UNSPECIFIED 06/28/2017 Kwadwo CARRASCO MD Ot G47.33 OBSTRUCTIVE SLEEP APNEA (ADULT) (PEDIATR 06/28/2017 Kwadwo CARRASCO MD Ot I10 ESSENTIAL (PRIMARY) HYPERTENSION 06/28/2017 Kwadwo CARRASCO MD, Ot I25.10 ATHSCL HEART DISEASE OF [place] CORONARY 06/28/2017 Kwadwo CARRASCO MD, Ot I44.60 UNSPECIFIED FASCICULAR BLOCK 06/28/2017 Kwadwo CARRASCO MD, Ot I48.0 PAROXYSMAL ATRIAL FIBRILLATION 06/28/2017 Kwadwo CARRASCO MD, Ot K21.9 GASTRO-ESOPHAGEAL REFLUX DISEASE WITHOUT 06/28/2017 Kwadwo CARRASCO MD, Ot R00.0 TACHYCARDIA, UNSPECIFIED 06/28/2017 Kwadwo CARRASCO MD, Ot R00.1 BRADYCARDIA, UNSPECIFIED 06/28/2017 Kwadwo CARRASCO MD Ot R53.83 OTHER FATIGUE 06/28/2017 Kwadwo CARRASCO MD, Ot Z68.34 BODY MASS INDEX (BMI) 34.0-34.9, ADULT 06/28/2017 Kwadwo CARRASCO MD Ot Z79.01 APPLE PACKING HEADER (CURRENT) USE OF ANTICOAGULANT 06/28/2017 Kwadwo CARRASCO MD, Ot Z79.899 OTHER CORRECTION (CURRENT) DRUG THERAPY 06/28/2017 Kwadwo CARRASCO MD, Ot Z87.891 PERSONAL HISTORY OF NICOTINE DEPENDENCE 06/28/2017 Kwadwo CARRASCO MD Ot Z95.1 PRESENCE OF AORTOCORONARY BYPASS GRAFT 06/28/2017 Kwadwo CARRASCO MD Ot Z95.5 PRESENCE OF [...] 04/25/16 04:50 Blood monocytes/100 leukocytes 12 % NRG Manual blood segmented neutrophils/100 leukocytes 83 % NRG Manual blood lymphocytes/100 leukocytes 5 % NRG Blood erythrocyte morphology finding identification NORMAL NR Complete blood count (CBC) with automated white [...] i.cardiac measurement (mass/volume) < ng/ mL <0.30 Automated blood complete blood count (hemogram) panel - 06/12/17 11:23 Blood leukocytes automated count (number/volume) 4.5 10*3/uL 4.3-11.0 Blood erythrocytes automated count (number/volume) 4.46 10*6/uL 4.35-5.85 Venous blood hemoglobin measurement (mass/volume) 14.1 g/dL 13.3-17.7 Blood hematocrit (volume fraction) 42 % 40-54 Automated erythrocyte mean corpuscular volume 94 [foz_us] 80-99 Automated erythrocyte mean corpuscular hemoglobin (mass per erythrocyte) 32 pg 25-34 Automated erythrocyte mean corpuscular hemoglobin concentration measurement ( mass/volume) 34 g/dL 32-36 Automated erythrocyte distribution width ratio 13.8 % 10.0-14.5 Automated blood platelet count (count/volume) 165 10*3/uL 130-400 Automated blood platelet mean volume measurement 11.7 [foz_us] 7.4-10.4 PT panel in platelet poor plasma by coagulation assay - 06/12/17 11:23 Prothrombin time (PT) in platelet poor plasma by coagulation assay 14.9 s 12.2-14.7 INR in platelet poor plasma or blood by coagulation assay 1.2 0.8-1.4 Activated partial thromboplastin time (aPTT) in platelet poor plasma bycoagulation assay - 06/12/17 11:23 Activated partial thromboplastin time (aPTT) in platelet poor plasma bycoagulation assay 29 s 24-35 Comprehensive metabolic panel - 06/12/17 11:23 Serum or plasma sodium measurement (moles/volume) 140 mmol/L 135-145 Serum or plasma potassium measurement (moles/volume) 4.1 mmol/L 3.6-5.0 Serum or plasma chloride measurement (moles/volume) 107 mmol/L 98-107 Carbon dioxide 25 mmol/L 21-32 Serum or plasma anion gap determination (moles/volume) 8 mmol/L 5-14 Serum or plasma urea nitrogen measurement (mass/volume) 9 mg/dL 7-18 Serum or plasma creatinine measurement (mass/volume) 0.84 mg/dL 0.60-1.30 Serum or plasma urea nitrogen/creatinine mass ratio 11 NRG Serum or plasma creatinine measurement with calculation of estimated glomerular filtration rate > NRG Serum or plasma glucose measurement (mass/volume) 103 mg/dL 70-105 Serum or plasma calcium measurement (mass/volume) 9.2 mg/dL 8.5-10.1 Serum or plasma total bilirubin measurement (mass/volume) 0.8 mg/dL 0.1-1.0 Serum or plasma alkaline phosphatase measurement (enzymatic activity/volume) 38 U/L 40-136 Serum or plasma aspartate aminotransferase measurement (enzymatic activity/ volume) 19 U/L 5-34 Serum or plasma alanine aminotransferase measurement (enzymatic activity/volume ) 20 U/L 0-55 Serum or plasma protein measurement (mass/volume) 6.9 g/dL 6.4-8.2 Serum or plasma albumin measurement (mass/volume) 4.1 g/dL 3.2-4.5 Methicillin resistant Staphylococcus aureus (MRSA) screening culture - 11:23 Methicillin resistant Staphylococcus aureus (MRSA) screening culture [facility] Automated blood complete blood count (hemogram) panel - 06/13/17 06:09 Blood leukocytes automated count (number/volume) 7.0 10*3/uL 4.3-11.0 Blood erythrocytes automated count (number/volume) 4.46 10*6/uL 4.35-5.85 Venous blood hemoglobin measurement (mass/volume) 14.1 g/dL 13.3-17.7 Blood hematocrit (volume fraction) 42 % 40-54 Automated erythrocyte mean corpuscular volume 94 [foz_us] 80-99 Automated erythrocyte mean corpuscular hemoglobin (mass per erythrocyte) 32 pg 25-34 Automated erythrocyte mean corpuscular hemoglobin concentration measurement ( mass/volume) 34 g/dL 32-36 Automated erythrocyte distribution width ratio 13.6 % 10.0-14.5 Automated blood platelet count (count/volume) 139 10*3/uL 130-400 Automated blood platelet mean volume measurement 11.1 [foz_us] 7.4-10.4 Comprehensive metabolic panel - 06/13/17 06:09 Serum or plasma sodium measurement (moles/volume) 140 mmol/L 135-145 Serum or plasma potassium measurement (moles/volume) 4.0 mmol/L 3.6-5.0 Serum or plasma chloride measurement (moles/volume) 108 mmol/L 98-107 Carbon dioxide 24 mmol/L 21-32 Serum or plasma anion gap determination (moles/volume) 8 mmol/L 5-14 Serum or plasma urea nitrogen measurement (mass/volume) 10 mg/dL 7-18 Serum or plasma creatinine measurement (mass/volume) 0.78 mg/dL 0.60-1.30 Serum or plasma urea nitrogen/creatinine mass ratio 13 NRG Serum or plasma creatinine measurement with calculation of estimated glomerular filtration rate > NRG Serum or plasma glucose measurement (mass/volume) 105 mg/dL 70-105 Serum or plasma calcium measurement (mass/volume) 8.8 mg/dL 8.5-10.1 Serum or plasma total bilirubin measurement (mass/volume) 1.0 mg/dL 0.1-1.0 Serum or plasma alkaline phosphatase measurement (enzymatic activity/volume) 38 U/L 40-136 Serum or plasma aspartate aminotransferase measurement (enzymatic activity/ volume) 19 U/L 5-34 Serum or plasma alanine aminotransferase measurement (enzymatic activity/volume ) 14 U/L 0-55 Serum or plasma protein measurement (mass/volume) 6.0 g/dL 6.4-8.2 Serum or plasma albumin measurement (mass/volume) 3.6 g/dL 3.2-4.5 Encounters ACCT No. Visit Date/Time Discharge Status Pt. Type Provider Facility Loc./Unit Complaint [id number] 06/12/2017 10:43:00 06/13/2017 20:31:00 DIS Outpatient Kwadwo CARRASCO MD [facility] AF,SIGNIFICANT SYMPTOMATIC PAUSES [id number] 05/11/2017 07:30:00 05/11/2017 23:59:59 [facility] Outpatient Kwadwo CARRASCO MD [facility] APPLE PACKING HEADER SURVEILLANCE FOR AFIB [id number] 03/18/2017 22:15:00 03/19/2017 13:07:00 DIS Inpatient RYAN LANDON MD [facility] ICU CHEST PAIN; HYPERTENSIVE URGENCY [id number] 03/09/2017 12:34:00 03/09/2017 23:59:59 CLS Outpatient MICHAEL BAKER MD, FACC, FACP CCDS [facility] CARD RAMIREZ R06.09 [id number] 02/28/2017 07:12:00 02/28/2017 23:59:59 CLS Outpatient MICHAEL BAKER MD, FACC, FACP CCDS [facility] CARD RAMIREZ R06.09 [id number] 07/18/2016 13:24:00 07/18/2016 15:18:00 DIS Outpatient RYAN LANDON MD [facility] REHAB BACK PAIN; GENERALIZED WEAKNESS; FALLING EPISODES [id number] 05/27/2016 19:01:00 05/28/2016 06:15:00 DIS Outpatient JAMIL MONTERO APRN [facility] SLEEP ARRHYTHMLAS, EXCESSIVE DAYTIME SLEEPINESS [id number] 04/27/2016 09:15:00 05/02/2016 11:50:00 DIS Inpatient RYAN LANDON MD [facility] 4TH SWB - FEVER,WEAKNESS [id number] 04/24/2016 10:01:00 04/27/2016 09:00:00 DIS Inpatient RAFAL DC DO [facility] 4TH FEVER [id number] 03/24/2016 14:48:00 03/24/2016 23:59:59 CLS Outpatient ZHANNA BENZ MD [facility] RAD CHEST PAIN,UNSPECIFIED [id number] 01/29/2016 07:42:00 01/29/2016 10:20:00 DIS Outpatient JEFF LOUIS MD [facility] SDC OCCULT POSITIVE STOOLS [id number] 01/27/2016 05:40:00 01/27/2016 16:01:00 DIS Outpatient JEFF LOUIS MD [facility] PREOP OCCULT POSITIVE STOOLS [id number] 11/17/2015 12:46:00 11/17/2015 23:59:59 CLS Outpatient ANDREW NATION MD [facility] RAD STONE [id number] 11/03/2015 05:59:00 11/03/2015 10:20:00 DIS Outpatient ANDREW NATION MD [facility] SDC RIGHT STONE [id number] 10/30/2015 05:41:00 10/30/2015 11:06:00 DIS Outpatient ANDREW NATION MD [facility] PREOP RIGHT STONE [id number] 10/28/2015 04:07:00 10/28/2015 06:12:00 DIS Emergency MAGDALENA CROWE DO [facility] ER BLOOD IN URINE [id number] 07/01/2015 00:10:00 07/01/2015 23:59:59 CLS Preadmit PERNELL BASILIO MD [facility] ONC [id number] 04/01/2015 09:27:00 06/30/2015 00:01:00 DIS Outpatient PERNELL BASILIO MD [facility] ONC [id number] 06/18/2015 23:59:00 06/18/2015 23:59:00 CAN Emergency MAGDALENA CROWE DO [facility] ER CHEST PAIN;A-FIB W/RVR [id number] 03/18/2015 19:50:00 03/19/2015 06:45:00 DIS Outpatient TIN SOTO DO [facility] SLEEP ARRHYTHMIAS ISCHEMIC HEART DISEASE HTN [id number] 02/26/2015 12:33:00 02/27/2015 11:35:00 DIS Inpatient JUAN J ALEMAN MD [facility] CSD AFIB, [id number] 01/28/2015 11:40:00 01/28/2015 23:59:59 CLS Outpatient TIN SOTO DO [facility] RT DYSPNEA ON EXERCTION, DYSPNEA,CAD [id number] 10/29/2014 08:59:00 12/04/2014 00:01:00 DIS Outpatient PERNELL BASILIO MD [facility] ONC [id number] 11/19/2014 17:44:00 11/19/2014 18:35:00 DIS Emergency ARIK CHOE MD [facility] ER ELEVATED HEART RATE [id number] 10/01/2014 06:00:00 10/01/2014 11:53:00 DIS Outpatient ANDREW NATION MD [facility] SDC PROSTATE CANCER [id number] 09/24/2014 10:38:00 09/24/2014 23:59:59 CLS Outpatient ANDREW NATION MD [facility] PREOP PROSTATE CANCER [id number] 04/21/2014 12:24:00 04/23/2014 11:10:00 DIS Inpatient RYAN LANDON MD [facility] 4TH DEHYDRATION [id number] 02/07/2014 19:28:00 02/07/2014 20:31:00 DIS Emergency [place] ANDERSON Gabriele HOWE [facility] ER ENLARGED TICK BITE [id number] 11/21/2013 08:26:00 11/21/2013 23:59:59 CLS Outpatient RYAN LANDON MD [facility] RAD LOW ALKALINE PHOSPHATES,CP,CHEST WALL PAIN,VIT D D [id number] 10/08/2013 10:51:00 10/08/2013 18:01:00 DIS Outpatient SAMUEL WOLF FACC, MICHAEL SANTIAGO CCDS [facility] CP,CAD,HLP [id number] 08/20/2013 12:36:00 08/20/2013 16:30:00 DIS Outpatient JAVIER BELLO DO [facility] SDC CHEST PAIN [id number] 08/14/2013 07:25:00 08/14/2013 23:59:59 CLS Outpatient JAVIER BELLO DO [facility] PREOP CHEST PAINS [id number] 04/10/2013 08:56:00 07/09/2013 00:01:00 DIS Outpatient ANGELITA DUDLEY [facility] CARD PALPITATIONS [id number] 01/06/2013 19:32:00 01/11/2013 11:50:00 DIS Inpatient RYAN LANDON MD [facility] 4TH FEVER, NEUTROPENIA, POSSIBLE PNEUMONIA [id number] 01/04/2013 17:18:00 01/04/2013 23:59:59 CLS Outpatient [id number] 11/23/2012 13:01:00 11/23/2012 21:50:00 DIS Outpatient MICHAEL BAKER MD, FACC, FACP CCDS [facility] CATH CAD,ANGINA, SOB,HTN,DM,HYPERLIPIDEMIA,FATIGUE,CABG, [id number] 11/15/2012 22:43:00 11/16/2012 16:00:00 DIS Inpatient RYAN LANDON MD [facility] CSD CHEST PAIN [id number] 10/27/2012 09:58:00 10/27/2012 23:59:59 CLS Outpatient [id number] 10/27/2012 20:17:00 10/27/2012 21:59:00 DIS Emergency TOSHA BROOKS MD [facility] ER UNCONTROLABLE SHAKING [id number] 03/24/2015 16:13:00 Document Registration [id number] 03/24/2015 16:12:00 Document Registration [id number] 03/24/2015 16:12:00 Document Registration [id number] 03/24/2015 16:12:00 Document Registration [id number] 09/24/2014 11:18:00 Document Registration [id number] 08/22/2014 11:54:00 Document Registration [id number] 07/10/2013 09:00:00 Document Registration [id number] 06/22/2011 13:38:00 Document Registration [id number] 06/08/2011 05:39:00 Document Registration [id number] 06/06/2011 07:41:00 Document Registration [id number] 05/31/2011 14:53:00 Document Registration [id number] 05/23/2011 16:08:00 Document Registration [id number] 05/15/2011 22:45:00 Document Registration [id number] 12/15/2010 11:21:00 Document Registration [id number] 10/12/2010 05:40:00 Document Registration [id number] 10/11/2010 09:02:00 Document Registration [id number] 04/20/2010 11:01:00 Document Registration
[2017-07-11] MEDS ORDERED: NS IV 1000 ML 1,000 ML IV ONE ×2 (16:03→17:01)
[2017-07-11] MEDS ORDERED: cefTRIAXone 1 GM (ROCEPHIN) VIAL IV STA (16:03)
[2017-07-11] MEDS ORDERED: ACETAMINOPHEN 500 MG TAB (TYLENOL) PO PRN ×2 (16:15→18:45)
[2017-07-11] MEDS ORDERED: NITROGLYCERIN 0.4 MG SL TABS BTL 25'S SL PRN (16:15)
[2017-07-11] MEDS ORDERED: ASPIRIN 81 MG CHEW (CHILDREN'S ASA) PO ONE (16:15)
--- NOTE | 2017-07-11 16:15 | ED Chest Pain ---
General Stated Complaint: CHILLS Source: patient, spouse Exam Limitations: no limitations History of Present Illness Time seen by provider: 16:00 Initial Comments Patient resists ER by private conveyance with chief complaint that they were just diagnosed by their urologist with a UTI. He was ordered some Bactrim he took one dose and this afternoon before arrival he started having some chills, shaking and feeling feverish so he came to the ER for evaluation. On his way to the ER started experiencing some chest pain. He has a history of coronary disease had a CABG as well as a coronary catheterization [place] [address] Tobias. More recently has had a pacemaker placed in the middle of May, by . He has not felt his pacemaker go off. He is not feeling any palpitations. He took a single dose of nitroglycerin his pain went from 9 out of 10 down to 7 out of 10 and is now 5 out of 10 presently At rest. He denies any shortness of breath nausea, chills, pain radiating to his arms shoulder or neck. Says the pain is not reproducible and palpation and it does feel like his anginal pain. Allergies and Home Medications Allergies Coded Allergies: amiodarone (Unverified Allergy, Unknown, 06/12/17) ciprofloxacin (Verified Adverse Reaction, Mild, HALLUCINATIONS, 02/28/17) clonidine (Verified Adverse Reaction, Mild, HALLUCINATIONS, 02/28/17) Home Medications Apixaban 5 Mg Tablet, 5 MG PO BID, (Reported) Cephalexin 500 Mg Capsule, 500 MG PO BID for 5 Days, #10 Ref 0 Prescribed by: Kwadwo CARRASCO on 06/13/17 1303 Cholecalciferol (Vitamin D3) 1,000 Unit Capsule, 1,000 UNIT PO BID, (Reported) Cyanocobalamin (Vitamin B-12) 1,000 Mcg Tablet.er, 1,000 MCG PO DAILY, (Reported ) Doxazosin Mesylate 1 Mg Tablet, 1 MG PO BID, (Reported) Dutasteride/Tamsulosin HCl 1 Each Cpmp.24hr, 1 CAP PO HS, (Reported) Furosemide 20 Mg Tablet, 20 MG PO DAILY PRN for SWELLING, (Reported) Losartan Potassium 100 Mg Tablet, 100 MG PO DAILY, (Reported) Metoprolol Tartrate 100 Mg Tablet, 50 MG PO BID, (Reported) TAKES 1/2 (100MG) TABLET Multivit-Min/FA/Lycopene/Lut 1 Each Tablet, 1 TAB PO DAILY, (Reported) Nitroglycerin 0.4 Mg Tab.subl, 0.4 MG SL UD PRN for CHEST PAIN, (Reported) Oxybutynin Chloride 15 Mg Tab.er.24, 15 MG PO DAILY, (Reported) Pantoprazole Sodium 40 Mg Tablet.dr, 40 MG PO DAILY, (Reported) Pravastatin Sodium 20 Mg Tablet, 20 MG PO DAILY, (Reported) Saxagliptin HCl 5 Mg Tablet, 5 MG PO DAILY, (Reported) Ubidecarenone 100 Mg Capsule, 100 MG PO HS, (Reported) Review of Systems Constitutional: chills, diaphoresis, dizziness, fever, malaise, weakness EENTM: No Blurred Vision, No Double Vision Respiratory: Denies Cough, Denies Shortness of Air, Denies SOA With Exertion, Denies SOA at Rest, Denies Wheezing Cardiovascular: See HPI, Chest Pain, Edema, Denies Syncope Gastrointestinal: Denies Abdomen Distended, Denies Abdominal Pain, Denies Constipated, Denies Diarrhea, Denies Nausea Genitourinary: See HPI, Burning, Denies Discharge, Other (incomplete micturition bladder scan) Skin: No pruritus, No rash Psychiatric/Neurological: Denies Headache, Denies Numbness, Denies Paresthesia , Denies Pre-Existing Deficit Past Iifxzor-Bbkspi-Axyuou Hx Patient Social History Alcohol Use: Denies Use Recreational Drug Use: No Smoking Status: Former Smoker Type Used: Cigarettes Former Smoker, Quit: Jun 12, 1978 2nd Hand Smoke Exposure: No Recent Foreign Travel: No Contact w/Someone Who Travel: No Recent Hopitalizations: No Immunizations Up To Date Tetanus Booster (TDap): Unknown Date of Pneumonia Vaccine: Jun 12, 2013 Date of Influenza Vaccine: Apr 12, 2017 Seasonal Allergies Seasonal Allergies: Yes Surgeries History of Surgeries: Yes Surgeries: Cardiac, CABG, Coronary Stent, Eye Surgery, Gallbladder, Renal Respiratory History of Respiratory Disorde: Yes (SLEEP APNEA-CPAP) Respiratory Disorders: Pneumonia, Sleep Apnea Currently Using CPAP: Yes Currently Using BIPAP: No Cardiovascular History of Cardiac Disorders: Yes (TRIPLE BYPASS, STENT, HX AFIB EPISODES) Cardiac Disorders: Angina, Atrial Fibrillation, Chronic Edema/Swelling, Coronary Artery Disease, High Cholesterol, Hypertension Neurological History of Neurological Disord: Yes (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) Neurological Disorders: TIA Reproductive System Hx Reproductive Disorders: No Sexually Transmitted Disease: No HIV/AIDS: No Genitourinary History of Genitourinary Disor: Yes (PROSTATE CANCER; PROSTATE ENLARGEMENT) Genitourinary Disorders: Kidney Infection, Prostate Problems, Bladder Infection , Kidney Stones Gastrointestinal History of Gastrointestinal Di: Yes Gastrointestinal Disorders: Gastroesophageal Reflux, Chronic Constipation, Polyps Musculoskeletal History of Musculoskeletal Dis: Yes (MILD, lyme's disease) Musculoskeletal Disorders: Arthritis 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, Non-Insulin dep HEENT History of HEENT Disorders: Yes (BILATERAL CATARACT SURGERY) HEENT Disorders: Cataract Loss of Vision: Denies Hearing Impairment: Hard of Hearing Cancer History of Cancer: Yes (PROSTATE SEEDS IMPLANTED 10/08) Cancer: Prostate Psychosocial History of Psychiatric Problem: No Integumentary History of Skin or Integumenta: No Blood Transfusions History of Blood Disorders: No Family Medical History Significant Family History: Hypertension Family Medial History: Cardiovascular disease 19 FATHER, Diabetes mellitus G8 SISTER Physical Exam Vital Signs Vital Sign - Last 12Hours 07/11/17 16:00 Temp 101.2 Pulse 120 Resp 20 B/P (MAP) 197/90 (125) Pulse Ox 94 O2 Delivery Nasal Cannula Capillary Refill : General Appearance: WD/WN, Moderate Distress HEENT: PERRL/EOMI, TMs Normal, Normal ENT Inspection, Pharynx Normal Neck: Normal Inspection, Supple Respiratory: Chest Non Tender, Lungs Clear, Normal Breath Sounds, No Accessory Muscle Use, No Respiratory Distress Cardiovascular: Regular Rate, Rhythm, No JVD, Other (1+ edema bilateral ankles) Gastrointestinal: Normal Bowel Sounds, Non Tender, Soft Extremity: Normal Capillary Refill, Non Tender Neurologic/Psychiatric: Alert, Oriented x3, Normal Mood/Affect Skin: Normal Color, Diaphoresis Focused Exam Evaluation Lactate Level Laboratory Tests 07/11/17 16:20: Lactic Acid Level 2.66*H Lactic Acid Level Laboratory Tests Test 07/11/17 16:20 Lactic Acid Level 2.66 MMOL/L (0.50-2.00) *H Progress/Results/Core Measures Results/Orders Lab Results Laboratory Tests Test 07/11/17 16:20 07/11/17 16:40 Range/Units White Blood Count 2.2 L 4.3-11.0 10^3/uL Red Blood Count 4.06 L 4.35-5.85 10^6/uL Hemoglobin 12.9 L 13.3-17.7 G/DL Hematocrit 38 L 40-54 % Mean Corpuscular Volume 94 80-99 FL Mean Corpuscular Hemoglobin 32 25-34 PG Mean Corpuscular Hemoglobin Concent 34 32-36 G/DL Red Cell Distribution Width 13.5 10.0-14.5 % Platelet Count 116 L 130-400 10^3/uL Mean Platelet Volume 12.6 H 7.4-10.4 FL Neutrophils (%) (Auto) 88 H 42-75 % Lymphocytes (%) (Auto) 11 L 12-44 % Monocytes (%) (Auto) 0 0-12 % Eosinophils (%) (Auto) 1 0-10 % Basophils (%) (Auto) 0 0-10 % Neutrophils # (Auto) 2.0 1.8-7.8 X 10^3 Lymphocytes # (Auto) 0.2 L 1.0-4.0 X 10^3 Monocytes # (Auto) 0.0 0.0-1.0 X 10^3 Eosinophils # (Auto) 0.0 0.0-0.3 10^3/uL Basophils # (Auto) 0.0 0.0-0.1 10^3/uL Neutrophils % (Manual) 88 % Lymphocytes % (Manual) 10 % Monocytes % (Manual) 1 % Eosinophils % (Manual) 1 % Basophils % (Manual) 0 % Band Neutrophils 0 % Blood Morphology Comment NORMAL Prothrombin Time 16.0 H 12.2-14.7 SEC INR Comment 1.3 0.8-1.4 Activated Partial Thromboplast Time 34 24-35 SEC Sodium Level 139 135-145 MMOL/L Potassium Level 4.0 3.6-5.0 MMOL/L Chloride Level 105 98-107 MMOL/L Carbon Dioxide Level 22 21-32 MMOL/L Anion Gap 12 5-14 MMOL/L Blood Urea Nitrogen 12 7-18 MG/DL Creatinine 0.82 0.60-1.30 MG/DL Estimat Glomerular Filtration Rate > 60 BUN/Creatinine Ratio 15 Glucose Level 90 70-105 MG/DL Lactic Acid Level 2.66 *H 0.50-2.00 MMOL/L Calcium Level 9.1 8.5-10.1 MG/DL Magnesium Level 1.7 L 1.8-2.4 MG/DL Total Bilirubin 1.3 H 0.1-1.0 MG/DL Aspartate Amino Transf (AST/SGOT) 25 5-34 U/L Alanine Aminotransferase (ALT/SGPT) 19 0-55 U/L Alkaline Phosphatase 44 40-136 U/L Myoglobin 116.6 H 10.0-92.0 NG/ML Troponin I < 0.30 <0.30 NG/ML B-Type Natriuretic Peptide 101.6 H <100.0 PG/ML Total Protein 6.6 6.4-8.2 GM/DL Albumin 3.7 3.2-4.5 GM/DL Urine Color YELLOW Urine Clarity SLIGHTLY CLOUDY Urine pH 5 5-9 Urine Specific Aldrich 1.015 L 1.016-1.022 Urine Protein 3+ H NEGATIVE Urine Glucose (UA) NEGATIVE NEGATIVE Urine Ketones NEGATIVE NEGATIVE Urine Nitrite NEGATIVE NEGATIVE Urine Bilirubin NEGATIVE NEGATIVE Urine Urobilinogen NORMAL NORMAL MG/DL Urine Leukocyte Esterase 3+ H NEGATIVE Urine RBC (Auto) 4+ H NEGATIVE Urine RBC 10-25 H /HPF Urine WBC TNTC H /HPF Urine Squamous Epithelial Cells NONE /HPF Urine Crystals NONE /LPF Urine Bacteria NEGATIVE /HPF Urine Casts NONE /LPF Urine Mucus NEGATIVE /LPF Urine Culture Indicated YES My Orders Orders - MIKAEL ELLISON Cbc With Automated Diff (07/11/17 16:03) Magnesium (07/11/17 16:03) Chest 1 View, Ap/Pa Only (07/11/17 16:03) Cardiac Profile 1 (07/11/17 16:03) Comprehensive Metabolic Panel (07/11/17 16:03) Myoglobin Serum (07/11/17 16:03) Protime With Inr (07/11/17 16:03) Partial Thromboplastin Time (07/11/17 16:03) O2 (07/11/17 16:03) Monitor-Rhythm Ecg Trace Only (07/11/17 16:03) Lipid Panel (07/12/17 06:00) Aspirin Chewable Tablet (Baby Aspirin Ch (07/11/17 16:15) Nitroglycerin 0.4 Mg Btl 25's (Nitrostat (07/11/17 16:15) Saline Lock/Iv-Start (07/11/17 16:03) BNP (07/11/17 16:03) Lactic Acid Analyzer (07/11/17 16:03) Blood Culture (07/11/17 16:03) Sputum Culture (07/11/17 16:03) Ua Culture If Indicated (07/11/17 16:03) O2 (07/11/17 16:03) Acetaminophen Tablet (Tylenol Tablet) (07/11/17 16:15) Saline Lock/Iv-Start (07/11/17 16:03) Saline Lock/Iv-Start (07/11/17 16:03) Ekg Tracing (07/11/17 16:03) Vital Signs Adult Sepsis Patie Q1H (07/11/17 16:03) Ceftriaxone Injection (Rocephin Injectio (07/11/17 16:03) Remove Rings In Anticipation O (07/11/17 16:03) Influenza A And B Antigens (07/11/17 16:03) Ns Iv 1000 Ml (Sodium Chloride 0.9%) (07/11/17 16:03) Post Void Residual Assessment (07/11/17 16:03) Manual Differential (07/11/17 16:20) Urine Culture (07/11/17 16:40) Ns Iv 1000 Ml (Sodium Chloride 0.9%) (07/11/17 17:01) Magnesium 1 Gm/100 Ml Ivpb (Magnesium Mcneil (07/11/17 17:15) Medications Given in ED Current Medications Medications Dose Ordered Sig/Mariajose Route Start Time Stop Time Status Last Admin Dose Admin Acetaminophen 1,000 mg ONCE PRN PO 07/11/17 16:15 07/11/17 16:38 DC 07/11/17 16:37 1,000 MG Aspirin 324 mg ONCE ONCE PO 07/11/17 16:15 07/11/17 16:16 DC 07/11/17 16:38 324 MG Sodium Chloride 1,000 ml @ 0 mls/hr Q0M ONCE IV 07/11/17 16:03 07/11/17 16:09 DC 07/11/17 16:37 500 MLS/HR Vital Signs/I&O Vital Sign - Last 12Hours 07/11/17 07/11/17 16:00 16:00 Temp 101.2 Pulse 120 Resp 20 B/P (MAP) 197/90 (125) Pulse Ox 94 O2 Delivery Nasal Cannula Room Air Progress Note : Time: 16:33 Progress Note Patient presents as sepsis most likely urosepsis and she was recently diagnosed with UTI and got only 1 dose of Bactrim. His does not feel that Bactrim has worked for him in the past. Give him a dose of Rocephin get blood cultures and work him up for sepsis but will also work up his chest pain. It's possible that his tachycardia secondary to sepsis has resulted in some demand ischemia. Initial EKG has a lot of artifact as well as some bundle branch block that is difficult to interpret but there is no overt T-wave elevation or depression. Echocardiogram from Dr. Culver February 2017 shows: Ejection fraction 60-65% all thickness increased systolic function is preserved. Grade 1 diastolic dysfunction. Left atrium is dilated Mild regurgitation of the mitral valve Pulmonary artery systolic pressure estimated to be 35-40 mmHg. Plan to give 2 L normal saline. Per ideal bodyweight 20 mL/kg the patient requires 1552 mL ECG Initial ECG Impression Date: Jul 11, 2017 Initial ECG Impression Time: 15:59 Initial ECG Rhythm: Normal Sinus Initial ECG Intervals: MI (122) Initial ECG Impression: Nonspecific Changes (right bundle-branch block) Initial ECG Comparisson: Unchanged Comment Some artifact but no overt T-wave elevation or depression. Right bundle branch block. Diagnostic Imaging Diagonstic Imaging: Xray Plain Films/CT/US/NM/MRI: chest (1v) Reviewed: Reviewed by Me Departure Communication (Admissions) Time/Spoke to Admitting Phy: 17:25 Communication Discussed case lab imaging and findings. She agrees with Rocephin and does not require a consult cardiology at this time. She'll see the patient in the morning. Impression Impression: Primary Impression: Urinary tract infection Qualified Codes: N30.01 - Acute cystitis with hematuria Additional Impressions: Sepsis Qualified Codes: A41.9 - Sepsis, unspecified organism Hypomagnesemia Chest pain Qualified Codes: I20.8 - Other forms of angina pectoris Disposition: 09 ADMITTED INPATIENT Condition: Improved Admissions Decision to Admit Reason: Admit from ER (General) Decision to Admit/Date: Jul 11, 2017 Time/Decision to Admit Time: 17:30 Departure-Patient Inst. Referrals: RYAN LANDON MD (PCP/Family) Primary Care Physician Copy Copies To 1: RYAN LANDON MD, TITUS J Jul 11, 2017 16:15
[2017-07-11 16:46] LABS: INR 1.3 (0.8-1.4)
[2017-07-11 16:51] LABS: BILIRUBIN,URINE NEGATIVE (NEGATIVE); CLARITY,URINE SLIGHTLY CLOUDY; COLOR,URINE YELLOW; GLUCOSE, URINE (UA) NEGATIVE (NEGATIVE); KETONES,URINE NEGATIVE (NEGATIVE); LEUKOCYTE ESTERASE ,URINE 3+ (NEGATIVE); NITRITE,URINE NEGATIVE (NEGATIVE); PH,URINE 5 (5-9); PROTEIN,URINE 3+ (NEGATIVE); UROBILINOGEN,URINE NORMAL (NORMAL)
[2017-07-11 16:54] LABS: ALANINE AMINOTRANSFERASE 19 U/L (0-55); ALBUMIN 3.7 GM/DL (3.2-4.5); ALKALINE PHOSPHATASE 44 U/L (40-136); BILIRUBIN,TOTAL 1.3 MG/DL (0.1-1.0); BUN/CREATININE RATIO 15; CALCIUM 9.1 MG/DL (8.5-10.1); CARBON DIOXIDE 22 MMOL/L (21-32); CHLORIDE 105 MMOL/L (98-107); CREATININE SERUM 0.82 MG/DL (0.60-1.30); GFR ESTIMATED > 60; GLUCOSE 90 MG/DL (70-105); MAGNESIUM 1.7 MG/DL (1.8-2.4); SODIUM 139 MMOL/L (135-145); TOTAL PROTEIN 6.6 GM/DL (6.4-8.2)
[2017-07-11 16:59] LABS: BASOPHILS % (AUTO) 0 % (0-10); EOSINOPHILS % (AUTO) 1 % (0-10); HEMATOCRIT 38 % (40-54); HEMOGLOBIN 12.9 G/DL (13.3-17.7); LYMPHOCYTES # (AUTO) 0.2 X 10^3 (1.0-4.0); LYMPHOCYTES % (AUTO) 11 % (12-44); MEAN CORPUSCULAR HEMOGLOBIN 32 PG (25-34); MEAN CORPUSCULAR HGB CONC 34 G/DL (32-36); MEAN CORPUSCULAR VOLUME 94 FL (80-99); MEAN PLATELET VOLUME 12.6 FL (7.4-10.4); MONOCYTES % (AUTO) 0 % (0-12); NEUTROPHILS % (AUTO) 88 % (42-75); PLATELET COUNT 116 10^3/uL (130-400); RED BLOOD COUNT 4.06 10^6/uL (4.35-5.85); RED CELL DISTRIBUTION WIDTH 13.5 % (10.0-14.5); WHITE BLOOD COUNT 2.2 10^3/uL (4.3-11.0)
[2017-07-11 17:01] LABS: MYOGLOBIN SERUM 116.6 NG/ML (10.0-92.0)
[2017-07-11 17:03] LABS: BACTERIA,URINE NEGATIVE /HPF; WBC,URINE TNTC /HPF
[2017-07-11 17:15] LABS: BAND NEUTROPHILS 0 %; BASOPHILS % (MANUAL) 0 %; EOSINOPHILS % (MANUAL) 1 %; LYMPHOCYTES % (MANUAL) 10 %; MONOCYTES % (MANUAL) 1 %; NEUTROPHILS % (MANUAL) 88 %; RBC MORPH NORMAL
[2017-07-11] MEDS ORDERED: MAGNESIUM 1 GM/100 ML IVPB 100 ML IV ONE (17:15)
--- NOTE | 2017-07-11 17:47 | Diagnostic Imaging Report ---
INDICATION: Chest pain. COMPARISON: Comparison made with the prior study from June 12, 2017. FINDINGS: Patient is status post prior sternotomy. Enlargement of the cardiac silhouette is unchanged but there has been slight interval increase in prominence of the central pulmonary vascular markings. There is no effusion. There is no pneumothorax. There is no alveolar consolidation. There is a stable granuloma in the right lung. IMPRESSION: 1. Interval increase in prominence of the central pulmonary vascular markings suggests vascular congestion and developing interstitial edema. Dictated by: Dictated on workstation # [id number]
--- OUTSIDE RECORDS SUMMARY | 2017-07-11 17:51 | XMS REPORT | Continuity of Care Document ---
Author Author [facility] Organization [facility] Address Unknown Phone Unavailable Allergies Active Description Code Type Severity Reaction Onset Reported/Identified Relationship to Patient Clinical Status Yes UNKNOWN ANTIBIOTIC UNKNOWN ANTIBIOTIC Mild N/A 09/06/2007 Yes No Known Drug Allergies [id number] Drug Allergy Unknown N/A 09/06/2007 Yes ciprofloxacin [id number] Drug Allergy Unknown HALLUCINATIONS 01/29/2016 Yes clonidine [id number] Drug Allergy Unknown HALLUCINATIONS 01/29/2016 Yes ciprofloxacin [id number] Drug Allergy Mild HALLUCINATIONS 02/28/2017 Yes clonidine [id number] Drug Allergy Mild HALLUCINATIONS 02/28/2017 Yes AMINODORONE AMINODORONE Unknown N/A 03/18/2017 Yes amiodarone [id number] Drug Allergy Unknown N/A 06/12/2017 Medications There is no data. Problems Date Dx Coded Attending Type Code Diagnosis Diagnosed By 05/25/1517 RYAN LANDON MD Ot M54.5 LOW BACK PAIN 05/25/1517 RYAN LANDON MD Ot R53.1 WEAKNESS 10/13/2010 Ot 271.3 DISACCHARIDASE DEF/MALAB 10/13/2010 Ot 272.4 HYPERLIPIDEMIA NEC/NOS 10/13/2010 Ot 413.9 ANGINA PECTORIS NEC/NOS 10/13/2010 Ot 414.01 CORONARY ATHEROSCLEROSIS OF [place] CORON 10/13/2010 Ot 424.0 MITRAL VALVE DISORDER [...] FACP CCDS Ot 414.01 CORONARY ATHEROSCLEROSIS OF [place] CORON 11/23/2012 MICHAEL BAKER MD, FACC FACP [...] BAKER MD, FACC FACP CCDS Ot V58.69 [facility],CURRENT USE 01/11/2013 RYAN LANDON MD Ot 066.1 TICK-BORNE FEVER 01/11/2013 RYAN LANDON MD Ot 250.00 DIAB DAVID WO COMPL, TYPE II OR UNSPEC TY 01/11/2013 RYAN LNADON MD Ot 275.2 DIS MAGNESIUM METABOLISM 01/11/2013 [...] MD Ot 787.91 DIARRHEA 07/09/2013 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 Ot 785.1 PALPITATIONS 08/20/2013 EUGENIA SUTHERLAND JAVIER Marian Ot 531.90 STOMACH ULCER NOS 10/08/2013 SAMUEL WOLF FACC, ALI FACP CCDS Ot 271.3 DISACCHARIDASE DEF/MALAB 10/08/2013 SAMUEL WOLF FACC, ALI FACP CCDS Ot 272.4 HYPERLIPIDEMIA NEC/NOS 10/08/2013 SAMUEL WOLF FACC, ALI FACP CCDS Ot 278.00 OBESITY, NOS 10/08/2013 SAMUEL WOLF FACC, ALI FACP CCDS Ot 414.01 CORONARY ATHEROSCLEROSIS OF [place] CORON 10/08/2013 MICHAEL BAKER MD, FACC FACP [...] MASS INDEX 36.0-36.9, ADULT 02/07/2014 [place] PROVIDER RELATIONS ADVOCATE Ot 682.6 CELLULITIS OF LEG 02/07/2014 [place] PROVIDER RELATIONS ADVOCATE Ot 916.5 INSECT BITE HIP/LEG-INF 02/07/2014 [place] PROVIDER RELATIONS ADVOCATE Ot E906.4 NONVENOM ARTHROPOD BITE 04/23/2014 RYAN [...] LANDON MD Ot 414.01 CORONARY ATHEROSCLEROSIS OF [place] CORON 04/23/2014 RYAN LANDON MD Ot 530.81 [...] RYAN A Ot 786.52 10/01/2014 BARBI WOLF, RAYN A Ot V45.82 10/01/2014 Ot 185 10/01/2014 [...] BARBI WOLF, RYAN Schreiber Ot 268.9 06/19/2015 BABRI WOLF, RYAN Schreiber Ot 515 06/19/2015 BARBI [...] K Ot I10 ESSENTIAL (PRIMARY) HYPERTENSION 06/19/2015 [place] DO, MAGDALENA K Ot I25.10 ATHSCL HEART DISEASE OF [place] CORONARY 06/19/2015 [place] DO, MAGDALENA Ang Ot 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 06/19/2015 SE[place] DO, MAGDALENA Ang Ot I48.0 PAROXYSMAL ATRIAL FIBRILLATION 06/19/2015 [place] DO, MAGDALENA Ang Ot R07.9 CHEST PAIN, UNSPECIFIED 06/20/2015 SE[place]STI[place] DO, MAGDALENA Ashia Ot E11.9 06/20/2015 SE[place]STIEN DO, MAGDALENA Ang Ot E78.5 06/20/2015 SE[place] DO, MAGDALENA Ang Ot I10 06/20/2015 [place] DO, MAGDALENA Ang Ot I25.10 06/20/2015 [facility], MAGDALENA Ang Ot I44.4 06/20/2015 [place] DO, MAGDALENA Ang Ot I48.0 06/20/2015 [facility], MAGDALENA Ang Ot R07.9 06/30/2015 CHETNA WOLF, PERNELL [...] PROSTATE 10/28/2015 ANDREW NATION MD Ot V72.81 BGAC-[id number] CARDIOVASCULAR 10/28/2015 ANDREW NATION MD Ot V74.8 [...] PROSTATE 10/30/2015 ANDREW NATION MD Ot V72.81 BRDR-IWK-NVGGJOQYY CARDIOVASCULAR 10/30/2015 ANDREW NATION MD Ot V74.8 [...] CHAPIS WOLF, ANDREW Schreiber Ot Z79.899 OTHER SENIOR LIVING (CURRENT) DRUG THERAPY 11/04/2015 CHAPIS WOLF, ANDREW Schreiber Ot N20.0 CALCULUS OF KIDNEY 11/04/2015 CHAPIS WOLF, ANDREW Schreiber Ot Z79.899 OTHER SENIOR LIVING (CURRENT) DRUG THERAPY 11/04/2015 CHAPIS WOLF, ANDREW Schreiber Ot N20.0 CALCULUS OF KIDNEY 11/04/2015 CHAPIS WOLF, ANDREW Schreiber Ot Z79.899 OTHER COSMETOLOGY EDUCATOR (CURRENT) DRUG THERAPY 11/17/2015 Ot 140.0 MAL [...] 11/17/2015 CHAPIS WOLF, ANDREW Schreiber Ot V72.81 ULNW-[id number]-IAVZCDMCC CARDIOVASCULAR 11/17/2015 ANDREW NATION MD Ot V74.8 [...] RECTUM 01/29/2016 JEFF LOUIS MD Ot Z79.01 SENIOR LIVING (CURRENT) USE OF ANTICOAGULANT 02/01/2016 JEFF LOUIS MD Ot E11.9 TYPE 2 DIABETES MELLITUS WITHOUT COMPLIC 02/01/2016 JEFF LOUIS MD Ot I48.91 UNSPECIFIED ATRIAL FIBRILLATION 02/01/2016 JEFF LOUIS MD Ot K62.5 HEMORRHAGE OF ANUS AND RECTUM 02/01/2016 JEFF LOUIS MD, Ot Z79.01 SENIOR LIVING (CURRENT) USE OF ANTICOAGULANT 03/24/2016 TIN SOTO [...] PROSTATE 03/24/2016 ANDREW NATION MD Ot V72.81 [id number] CARDIOVASCULAR 03/24/2016 ANDREW NATION MD Ot V74.8 [...] Schreiber Ot I25.119 ATHSCL HEART DISEASE OF [place] COR ART W 04/26/2016 DAO SUTHERLANDRAFAL Ot [...] 04/26/2016 DAO SUTHERLAND, RAFAL Schreiber Ot Z79.84 SENIOR LIVING (CURRENT) USE OF ORAL HYPOGLYC 04/26/2016 DAO [...] TYPE 2 DIABETES MELLITUS WITHOUT COMPLIC 04/27/2016 [facility], RAFAL Schreiber Ot E78.00 PURE HYPERCHOLESTEROLEMIA, UNSPECIFIED 04/27/2016 GELLENDER DO, RAFAL Schreiber Ot E78.5 HYPERLIPIDEMIA, UNSPECIFIED 04/27/2016 [facility] RAF[facility] Schreiber Ot G47.30 SLEEP APNEA, UNSPECIFIED 04/27/2016 [facility], RAFAL Schreiber Ot I10 ESSENTIAL (PRIMARY) HYPERTENSION 04/27/2016 [facility], RAFAL Schreiber Ot I25.119 ATHSCL HEART DISEASE OF [place] COR ART W 04/27/2016 [facility], RAFAL Schreiber Ot I48.91 UNSPECIFIED ATRIAL FIBRILLATION 04/27/2016 [facility] DO, RAFAL Schreiber Ot K29.80 DUODENITIS WITHOUT BLEEDING 04/27/2016 [facility], RAFAL Schreiber Ot N39.0 URINARY TRACT INFECTION, SITE NOT SPECIF 04/27/2016 [facility], RAFAL Schreiber Ot R50.9 FEVER, UNSPECIFIED 04/27/2016 [facility], RAFAL Schreiber Ot R53.1 WEAKNESS 04/27/2016 [facility], RAFAL Schreiber Ot R74.8 ABNORMAL LEVELS OF OTHER SERUM ENZYMES 04/27/2016 [facility], RAFAL Schreiber Ot T46.2X1A POISONING BY OTH ANTIDYSRHYTHMIC DRUGS, 04/27/2016 [facility] RAFAL Ot Z23 ENCOUNTER FOR IMMUNIZATION 04/27/2016 [facility], RAFAL Schreiber Ot Z79.84 COSMETOLOGY EDUCATOR (CURRENT) USE OF ORAL HYPOGLYC 04/27/2016 [facility] Ot Z85.46 PERSONAL HISTORY OF MALIGNANT NEOPLASM O 04/27/2016 [facility] RAFAL Ot Z87.891 PERSONAL HISTORY OF NICOTINE DEPENDENCE 04/27/2016 [facility] Z91.81 HISTORY OF FALLING 04/27/2016 [facility] Z92.3 PERSONAL HISTORY OF IRRADIATION 04/27/2016 [facility], RAFAL Schreiber Ot Z95.1 PRESENCE OF AORTOCORONARY BYPASS GRAFT 04/27/2016 [facility] Z95.5 PRESENCE OF CORONARY ANGIOPLASTY IMPLANT 04/27/2016 [facility], RAFAL Schreiber Ot D69.6 THROMBOCYTOPENIA, UNSPECIFIED 04/27/2016 GELLENDER DO, RAFAL Schreiber Ot E11.9 TYPE 2 DIABETES MELLITUS WITHOUT COMPLIC 04/27/2016 [facility], RAFAL Schreiber Ot E78.00 PURE HYPERCHOLESTEROLEMIA, UNSPECIFIED 04/27/2016 GE[facility]ENDER DO, RAFAL Schreiber Ot E78.5 HYPERLIPIDEMIA, UNSPECIFIED 04/27/2016 GE[facility]END[facility] DO, RAFAL Schreiber Ot G47.30 SLEEP APNEA, UNSPECIFIED 04/27/2016 [facility]DER , RAFAL Schreiber Ot I10 ESSENTIAL (PRIMARY) HYPERTENSION 04/27/2016 [facility], RAFAL Schreiber Ot I25.119 ATHSCL HEART DISEASE OF [place] COR ART W 04/27/2016 AMARISDER DO, RAFAL [...] 04/27/2016 DAO SUTHERLAND, RAFAL Schreiber Ot Z79.84 SENIOR LIVING (CURRENT) USE OF ORAL HYPOGLYC 04/27/2016 DAO SUTHERLANDRAFAL Ot Z85.46 PERSONAL HISTORY OF MALIGNANT NEOPLASM O 04/27/2016 DAO SUTHERLANDRAFAL Ot Z87.891 PERSONAL HISTORY OF NICOTINE DEPENDENCE 04/27/2016 DAO SUTHERLANDRAFAL Ot Z91.81 HISTORY OF FALLING 04/27/2016 DAO DORAFAL Ot Z92.3 PERSONAL HISTORY OF IRRADIATION 04/27/2016 [facility] Ot Z95.1 PRESENCE OF AORTOCORONARY BYPASS [...] SUTHERLANDRAFAL Ot I25.119 ATHSCL HEART DISEASE OF [place] COR ART W 04/27/2016 [facility] Ot I48.91 UNSPECIFIED ATRIAL FIBRILLATION 04/27/2016 [facility] Ot K29.80 DUODENITIS WITHOUT BLEEDING 04/27/2016 DAO SUTHERLANDRAFAL Ot N39.0 URINARY TRACT INFECTION, SITE NOT SPECIF 04/27/2016 DAO SUTHERLANDRAFAL Ot R50.9 FEVER, UNSPECIFIED 04/27/2016 DAO SUTHERLANDRAFAL Ot R53.1 WEAKNESS 04/27/2016 DAO SUTHERLANDRAFAL Ot R74.8 ABNORMAL LEVELS OF OTHER SERUM ENZYMES 04/27/2016 DAO SUTHERLANDRAFAL Ot Z23 ENCOUNTER FOR IMMUNIZATION 04/27/2016 [facility] Ot Z79.84 SENIOR LIVING (CURRENT) USE OF ORAL HYPOGLYC 04/27/2016 [facility] Ot Z85.46 PERSONAL HISTORY OF MALIGNANT NEOPLASM O 04/27/2016 ADO SUTHERLANDRAFAL Ot Z87.891 PERSONAL HISTORY OF NICOTINE DEPENDENCE 04/27/2016 DAO SUTHERLANDRAFAL Ot Z91.81 HISTORY OF FALLING 04/27/2016 DAO SUTHERLANDRAFAL Ot Z92.3 PERSONAL HISTORY OF IRRADIATION 04/27/2016 [facility] Ot Z95.1 PRESENCE OF AORTOCORONARY BYPASS GRAFT 04/27/2016 [facility] Ot Z95.5 PRESENCE OF CORONARY ANGIOPLASTY IMPLANT [...] MD Ot I25.119 ATHSCL HEART DISEASE OF [place] COR ART W 04/29/2016 RYAN LANDON MD [...] DRUGS, 04/29/2016 RYAN LANDON MD Ot Z79.84 SENIOR LIVING (CURRENT) USE OF ORAL HYPOGLYC 04/29/2016 RYAN [...] MD Ot I25.119 ATHSCL HEART DISEASE OF [place] COR ART W 05/02/2016 RYAN LANDON MD [...] DRUGS, 05/02/2016 RYAN LANDON MD Ot Z79.84 COSMETOLOGY EDUCATOR (CURRENT) USE OF ORAL HYPOGLYC 05/02/2016 RYAN [...] PROSTATE 07/14/2016 ANDREW NATION MD Ot V72.81 [id number]-[id number]-[id number] CARDIOVASCULAR 07/14/2016 ANDREW NATION MD Ot V74.8 [...] PROSTATE 02/22/2017 ANDREW NATION MD Ot V72.81 CWNA-NXV-KILQFFBOR CARDIOVASCULAR 02/22/2017 ANDREW NATION MD Ot V74.8 [...] MALIGNANT NEOPLASM OF PROSTATE 03/01/2017 SAMUEL WOLF [facility], ALI FACP CCDS Ot E66.09 OTHER OBESITY DUE TO EXCESS CALORIES 03/01/2017 SAMUEL WOLF FACC, ALI FACP CCDS Ot E78.4 OTHER HYPERLIPIDEMIA 03/01/2017 SAMUEL WOLF [facility], ALI FACP CCDS Ot I10 ESSENTIAL (PRIMARY) HYPERTENSION 03/01/2017 SAMUEL WOLF [facility], ALI FACP CCDS Ot I48.0 PAROXYSMAL ATRIAL FIBRILLATION 03/01/2017 SAMUEL WOLF [facility], ALI FACP CCDS Ot I65.23 OCCLUSION AND [...] PROSTATE 03/08/2017 ANDREW NATION MD Ot V72.81 HFHA-NWG-PIDKBLNEH CARDIOVASCULAR 03/08/2017 ANDREW NATION MD Ot V74.8 [...] MD Ot I25.10 ATHSCL HEART DISEASE OF [place] CORONARY 03/19/2017 RYAN LANDON MD Ot I48.2 CHRONIC ATRIAL FIBRILLATION 03/19/2017 RYAN LANDON MD Ot I51.7 CARDIOMEGALY 03/19/2017 RYAN LANDON MD Ot K21.9 GASTRO-ESOPHAGEAL REFLUX DISEASE WITHOUT 03/19/2017 RYAN LANDON MD Ot N40.0 BENIGN PROSTATIC HYPERPLASIA WITHOUT LOW 03/19/2017 RYAN LANDON MD Ot R07.9 CHEST PAIN, UNSPECIFIED 03/19/2017 RYAN LANDON MD Ot Z79.01 SENIOR LIVING (CURRENT) USE OF ANTICOAGULANT 03/19/2017 RYNA LANDON MD Ot Z79.899 OTHER SENIOR LIVING (CURRENT) DRUG THERAPY 03/19/2017 RYAN LANDON MD, [...] MD, Ot I25.10 ATHSCL HEART DISEASE OF [place] CORONARY 03/19/2017 RYAN LANDON MD Ot I48.2 CHRONIC ATRIAL FIBRILLATION 03/19/2017 RYAN LANDON MD, Ot I51.7 CARDIOMEGALY 03/19/2017 RYAN LANDON MD, Ot K21.9 GASTRO-ESOPHAGEAL REFLUX DISEASE WITHOUT 03/19/2017 RYAN LANDON MD Ot N40.0 BENIGN PROSTATIC HYPERPLASIA WITHOUT LOW 03/19/2017 RYAN LANDON MD Ot R07.9 CHEST PAIN, UNSPECIFIED 03/19/2017 RYAN LANDON MD, Ot Z79.01 COSMETOLOGY EDUCATOR (CURRENT) USE OF ANTICOAGULANT 03/19/2017 RYAN LANDON MD, Ot Z79.899 OTHER COSMETOLOGY EDUCATOR (CURRENT) DRUG THERAPY 03/19/2017 RYAN LANDON MD, [...] STENOSIS OF BILATERAL LEE 03/30/2017 SAMUEL WOLF [facility], ALI FACP CCDS Ot R06.09 OTHER FORMS [...] OTHER FORMS OF DYSPNEA 04/05/2017 SAMUEL WOLF [facility], ALI FACP CCDS Ot R53.83 OTHER FATIGUE [...] MD Ot I25.10 ATHSCL HEART DISEASE OF [place] CORONARY 05/12/2017 Kwadwo CARRASCO MD Ot I44.60 [...] ADULT 05/12/2017 Kwadwo CARRASCO MD Ot Z79.01 COSMETOLOGY EDUCATOR (CURRENT) USE OF ANTICOAGULANT 05/12/2017 Kwadwo CARRASCO MD Ot Z79.899 OTHER SENIOR LIVING (CURRENT) DRUG THERAPY 05/12/2017 Kwadwo CARRASCO MD, [...] MD Ot I25.10 ATHSCL HEART DISEASE OF [place] CORONARY 05/25/2017 Kwadwo CARRASCO MD Ot I44.60 UNSPECIFIED FASCICULAR BLOCK 05/25/2017 Kwadwo CARRASCO MD Ot I48.0 PAROXYSMAL ATRIAL FIBRILLATION 05/25/2017 Kwadwo CARRASCO MD Ot K21.9 GASTRO-ESOPHAGEAL REFLUX DISEASE WITHOUT 05/25/2017 Kwadwo CARRASCO MD Ot R00.0 TACHYCARDIA, UNSPECIFIED 05/25/2017 Kwawdo CARRASCO MD Ot R00.1 BRADYCARDIA, UNSPECIFIED 05/25/2017 Kwadwo CARRASCO MD Ot R53.83 OTHER FATIGUE 05/25/2017 Kwadwo CARRASCO MD, Ot Z68.34 BODY MASS INDEX (BMI) 34.0-34.9, ADULT 05/25/2017 Kwadwo CARRASCO MD Ot Z79.01 COSMETOLOGY EDUCATOR (CURRENT) USE OF ANTICOAGULANT 05/25/2017 Kwadwo CARRASCO MD Ot Z79.899 OTHER SENIOR LIVING (CURRENT) DRUG THERAPY 05/25/2017 Kwadwo CARRASCO MD, [...] MD Ot I25.10 ATHSCL HEART DISEASE OF [place] CORONARY 06/05/2017 Kwadwo CARRASCO MD Ot I44.60 [...] ADULT 06/05/2017 Kwadwo CARRASCO MD Ot Z79.01 COSMETOLOGY EDUCATOR (CURRENT) USE OF ANTICOAGULANT 06/05/2017 Kwadwo CARRASCO MD Ot Z79.899 OTHER SENIOR LIVING (CURRENT) DRUG THERAPY 06/05/2017 Kwadwo CARRASCO MD, [...] MD Ot I25.119 ATHSCL HEART DISEASE OF [place] COR ART W 06/15/2017 Kwadwo CARRASCO MD [...] MD Ot I10 ESSENTIAL (PRIMARY) HYPERTENSION 06/21/2017 Kwadwo CARRASCO MD Ot I25.119 ATHSCL HEART DISEASE OF [place] COR ART W 06/21/2017 Kwadwo CARRASCO MD [...] MD Ot I25.10 ATHSCL HEART DISEASE OF [place] CORONARY 06/22/2017 Kwadwo CARRASCO MD Ot I44.60 [...] ADULT 06/22/2017 Kwadwo CARRASCO MD Ot Z79.01 COSMETOLOGY EDUCATOR (CURRENT) USE OF ANTICOAGULANT 06/22/2017 Kwadwo CARRASCO MD Ot Z79.899 OTHER SENIOR LIVING (CURRENT) DRUG THERAPY 06/22/2017 Kwadwo CARRASCO MD [...] MD, Ot I25.10 ATHSCL HEART DISEASE OF [place] CORONARY 06/28/2017 Kwadwo CARRASCO MD, Ot I44.60 [...] ADULT 06/28/2017 Kwadwo CARRASCO MD Ot Z79.01 COSMETOLOGY EDUCATOR (CURRENT) USE OF ANTICOAGULANT 06/28/2017 Kwadwo CARRASCO MD, Ot Z79.899 OTHER SENIOR LIVING (CURRENT) DRUG THERAPY 06/28/2017 Kwadwo CARRASCO MD, [...] resistant Staphylococcus aureus (MRSA) screening culture [facility]G [facility] Automated blood complete blood count (hemogram) panel [...] plasma albumin measurement (mass/volume) 3.6 g/dL 3.2-4.5 PT panel in platelet poor plasma by coagulation assay - 07/11/17 16:20 Prothrombin time (PT) in platelet poor plasma by coagulation assay 16.0 s 12.2-14.7 INR in platelet poor plasma or blood by coagulation assay 1.3 0.8-1.4 Activated partial thromboplastin time (aPTT) in platelet poor plasma bycoagulation assay - 07/11/17 16:20 Activated partial thromboplastin time (aPTT) in platelet poor plasma bycoagulation assay 34 s 24-35 Blood lactic acid measurement (moles/volume) - 07/11/17 16:20 Blood lactic acid measurement (moles/volume) 2.66 mmol/L 0.50-2.00 Comprehensive metabolic panel - 07/11/17 16:20 Serum or plasma sodium measurement (moles/volume) 139 mmol/L 135-145 Serum or plasma potassium measurement (moles/volume) 4.0 mmol/L 3.6-5.0 Serum or plasma chloride measurement (moles/volume) 105 mmol/L 98-107 Carbon dioxide 22 mmol/L 21-32 Serum or plasma anion gap determination (moles/volume) 12 mmol/L 5-14 Serum or plasma urea nitrogen measurement (mass/volume) 12 mg/dL 7-18 Serum or plasma creatinine measurement (mass/volume) 0.82 mg/dL 0.60-1.30 Serum or plasma urea nitrogen/creatinine mass ratio 15 NRG Serum or plasma creatinine measurement with calculation of estimated glomerular filtration rate > NRG Serum or plasma glucose measurement (mass/volume) 90 mg/dL 70-105 Serum or plasma calcium measurement (mass/volume) 9.1 mg/dL 8.5-10.1 Serum or plasma total bilirubin measurement (mass/volume) 1.3 mg/dL 0.1-1.0 Serum or plasma alkaline phosphatase measurement (enzymatic activity/volume) 44 U/L 40-136 Serum or plasma aspartate aminotransferase measurement (enzymatic activity/ volume) 25 U/L 5-34 Serum or plasma alanine aminotransferase measurement (enzymatic activity/volume ) 19 U/L 0-55 Serum or plasma protein measurement (mass/volume) 6.6 g/dL 6.4-8.2 Serum or plasma albumin measurement (mass/volume) 3.7 g/dL 3.2-4.5 Magnesium - 07/11/17 16:20 Magnesium 1.7 mg/dL 1.8-2.4 Complete blood count (CBC) with automated white blood cell (WBC) differential - 07/11/17 16:20 Blood leukocytes automated count (number/volume) 2.2 10*3/uL 4.3-11.0 Blood erythrocytes automated count (number/volume) 4.06 10*6/uL 4.35-5.85 Venous blood hemoglobin measurement (mass/volume) 12.9 g/dL 13.3-17.7 Blood hematocrit (volume fraction) 38 % 40-54 Automated erythrocyte mean corpuscular volume 94 [foz_us] 80-99 Automated erythrocyte mean corpuscular hemoglobin (mass per erythrocyte) 32 pg 25-34 Automated erythrocyte mean corpuscular hemoglobin concentration measurement ( mass/volume) 34 g/dL 32-36 Automated erythrocyte distribution width ratio 13.5 % 10.0-14.5 Automated blood platelet count (count/volume) 116 10*3/uL 130-400 Automated blood platelet mean volume measurement 12.6 [foz_us] 7.4-10.4 Automated blood neutrophils/100 leukocytes 88 % 42-75 Automated blood lymphocytes/100 leukocytes 11 % 12-44 Blood monocytes/100 leukocytes 0 % 0-12 Automated blood eosinophils/100 leukocytes 1 % 0-10 Automated blood basophils/100 leukocytes 0 % 0-10 Blood neutrophils automated count (number/volume) 2.0 10*3 1.8-7.8 Blood lymphocytes automated count (number/volume) 0.2 10*3 1.0-4.0 Blood monocytes automated count (number/volume) 0.0 10*3 0.0-1.0 Automated eosinophil count 0.0 10*3/uL 0.0-0.3 Automated blood basophil count (count/volume) 0.0 10*3/uL 0.0-0.1 Serum or plasma troponin i.cardiac measurement (mass/volume) - 07/11/17 16:20 Serum or plasma troponin i.cardiac measurement (mass/volume) < ng/ mL <0.30 Myoglobin, serum - 07/11/17 16:20 Myoglobin, serum 116.6 ng/mL 10.0-92.0 Blood manual differential performed detection - 07/11/17 16:20 Blood monocytes/100 leukocytes 1 % NRG Manual blood segmented neutrophils/100 leukocytes 88 % NRG Blood band neutrophils/100 leukocytes 0 % NRG Manual blood lymphocytes/100 leukocytes 10 % NRG Manual eosinophils/100 leukocytes in nose 1 % NRG Manual blood basophils/100 leukocytes 0 % NRG Blood erythrocyte morphology finding identification NORMAL NRG Serum or plasma lithium measurement (moles/volume) - 07/11/17 16:20 BNP level 101.6 pg/mL <100.0 Complete urinalysis with reflex to culture - 07/11/17 16:40 Urine color determination YELLOW NRG Urine clarity determination SLIGHTLY CLOUDY NRG Urine pH measurement by test strip 5 5-9 Specific gravity of urine by test strip 1.015 1.016- 1.022 Urine protein assay by test strip, semi-quantitative 3+ NEGATIVE Urine glucose detection by automated test strip NEGATIVE NEGATIVE Erythrocytes detection in urine sediment by light microscopy 4+ NEGATIVE Urine ketones detection by automated test strip NEGATIVE NEGATIVE Urine nitrite detection by test strip NEGATIVE NEGATIVE Urine total bilirubin detection by test strip NEGATIVE NEGATIVE Urine urobilinogen measurement by automated test strip (mass/volume) NORMAL NORMAL Urine leukocyte esterase detection by dipstick 3+ NEGATIVE Automated urine sediment erythrocyte count by microscopy (number/high power field) [HPF] NRG Automated urine sediment leukocyte count by microscopy (number/high power field ) TNTC NRG Bacteria detection in urine sediment by light microscopy NEGATIVE NRG Squamous epithelial cells detection in urine sediment by light microscopy NONE NRG Crystals detection in urine sediment by light microscopy NONE NRG Casts detection in urine sediment by light microscopy NONE NRG Mucus detection in urine sediment by light microscopy NEGATIVE NRG Complete urinalysis with reflex to culture YES NRG Influenza virus A and B antigen detection - 07/11/17 17:15 FLU RESULT NEGATIVE FOR INFLUENZA A AND B ANTIGENS BY IA NRG Encounters ACCT No. Visit Date/Time Discharge Status Pt. Type Provider Facility Loc./Unit Complaint [id number] 06/12/2017 10:43:00 06/13/2017 20:31:00 DIS Outpatient Kwadwo CARRASCO MD [facility] AF,SIGNIFICANT SYMPTOMATIC PAUSES [id number] 05/11/2017 07:30:00 05/11/2017 23:59:59 CLS Outpatient Kwadwo CARRASCO MD [facility] COSMETOLOGY EDUCATOR SURVEILLANCE FOR AFIB [id number] 03/18/2017 22:15:00 03/19/2017 13:07:00 DIS Inpatient RYAN LANDON MD [facility] ICU CHEST PAIN; HYPERTENSIVE URGENCY [id number] 03/09/2017 12:34:00 03/09/2017 23:59:59 CLS Outpatient SAMUEL WOLF FACC, ALI FACP CCDS [facility] CARD RAMIREZ R06.09 [id number] 02/28/2017 07:12:00 02/28/2017 23:59:59 CLS Outpatient SAMUEL WOLF FACC, ALI FACP CCDS [facility] CARD RAMIREZ R06.09 [id number] 07/18/2016 13:24:00 07/18/2016 15:18:00 DIS Outpatient RYAN LANDON MD [facility] REHAB BACK PAIN; GENERALIZED WEAKNESS; FALLING EPISODES [id number] 05/27/2016 19:01:00 05/28/2016 06:15:00 DIS Outpatient JAMIL MONTERO APRN [facility] SLEEP ARRHYTHMLAS, EXCESSIVE DAYTIME SLEEPINESS [id number] 04/27/2016 09:15:00 05/02/2016 11:50:00 DIS Inpatient RYAN LANDON MD [facility] 4TH SWB - FEVER,WEAKNESS [id number] 04/24/2016 10:01:00 04/27/2016 09:00:00 DIS Inpatient GELLENDER , RAFAL A [facility] 4TH FEVER [id number] 03/24/2016 14:48:00 03/24/2016 23:59:59 CLS Outpatient ZHANNA BENZ MD [facility] RAD CHEST PAIN,UNSPECIFIED [id number] 01/29/2016 07:42:00 01/29/2016 10:20:00 DIS Outpatient JEFF LOUIS MD [facility] SDC OCCULT POSITIVE STOOLS [id number] 01/27/2016 05:40:00 01/27/2016 16:01:00 DIS Outpatient JEFF LOUIS MD [facility] PREOP OCCULT POSITIVE STOOLS [id number] 11/17/2015 12:46:00 11/17/2015 23:59:59 CLS Outpatient ANDREW NATION MD [facility] RAD STONE [id number] 11/03/2015 05:59:00 11/03/2015 10:20:00 DIS Outpatient ANDREW NATION MD [facility] SDC RIGHT STONE [id number] 10/30/2015 05:41:00 10/30/2015 11:06:00 DIS Outpatient ANDREW NATION MD [facility] PREOP RIGHT STONE [id number] 10/28/2015 04:07:00 10/28/2015 06:12:00 DIS Emergency SEBASTIEN MAGDALENA SUTHERLAND [facility] ER BLOOD IN URINE [id number] 07/01/2015 00:10:00 07/01/2015 23:59:59 CLS Preadmit PERNELL BASILIO MD [facility] ONC [id number] 04/01/2015 09:27:00 06/30/2015 00:01:00 DIS Outpatient PERNELL BASILIO MD [facility] ONC [id number] 06/18/2015 23:59:00 06/18/2015 23:59:00 CAN Emergency SEBASTIEN MAGDALENA SUTHERLAND [facility] ER CHEST PAIN;A-FIB W/RVR [id number] 03/18/2015 19:50:00 03/19/2015 06:45:00 DIS Outpatient TIN SOTO DO [facility] SLEEP ARRHYTHMIAS ISCHEMIC HEART DISEASE HTN [id number] 02/26/2015 12:33:00 02/27/2015 11:35:00 DIS Inpatient JUAN J ALEMAN MD [facility] CSD AFIB, [id number] 01/28/2015 11:40:00 01/28/2015 23:59:59 CLS Outpatient TIN SOTO DO [facility] RT DYSPNEA ON EXERCTION, DYSPNEA,CAD [id number] 10/29/2014 08:59:00 12/04/2014 00:01:00 DIS Outpatient PERNELL BASILIO MD [facility] ONC [id number] 11/19/2014 17:44:00 11/19/2014 18:35:00 DIS Emergency DAIJA WOLF, ARIK Rogers [facility] ER ELEVATED HEART RATE [id number] 10/01/2014 06:00:00 10/01/2014 11:53:00 DIS Outpatient ANDREW NATION MD [facility] SDC PROSTATE CANCER [id number] 09/24/2014 10:38:00 09/24/2014 23:59:59 CLS Outpatient ANDREW NATION MD [facility] PREOP PROSTATE CANCER [id number] 04/21/2014 12:24:00 04/23/2014 11:10:00 DIS Inpatient RYAN LANDON MD [facility] 4TH DEHYDRATION [id number] 02/07/2014 19:28:00 02/07/2014 20:31:00 DIS Emergency [place] PROVIDER RELATIONS ADVOCATE [facility] ER ENLARGED TICK BITE [id number] 11/21/2013 08:26:00 11/21/2013 23:59:59 CLS Outpatient RYAN LANDON MD [facility] RAD LOW ALKALINE PHOSPHATES,CP,CHEST WALL PAIN,VIT D D [id number] 10/08/2013 10:51:00 10/08/2013 18:01:00 DIS Outpatient SAMUEL WOLF FACC, MICHAEL FACP CCDS [facility] CATH CP,CAD,HLP [id number] 08/20/2013 12:36:00 08/20/2013 16:30:00 DIS Outpatient JAVIER BELLO DO [facility] SDC CHEST PAIN [id number] 08/14/2013 07:25:00 08/14/2013 23:59:59 CLS Outpatient JAVIER BELLO DO [facility] PREOP CHEST PAINS [id number] 04/10/2013 08:56:00 07/09/2013 00:01:00 DIS Outpatient ANGELITA DUDLEY [facility] CARD PALPITATIONS [id number] 01/06/2013 19:32:00 01/11/2013 11:50:00 DIS Inpatient RYAN LANDON MD [facility] 4TH FEVER, NEUTROPENIA, POSSIBLE PNEUMONIA [id number] 01/04/2013 17:18:00 01/04/2013 23:59:59 CLS Outpatient [id number] 11/23/2012 13:01:00 11/23/2012 21:50:00 DIS Outpatient SAMUEL WOLF FACCMICHAEL FACP CCDS [facility] CATH CAD,ANGINA, SOB,HTN,DM,HYPERLIPIDEMIA,FATIGUE,CABG, [id number] 11/15/2012 22:43:00 11/16/2012 16:00:00 DIS Inpatient RYAN LANDON MD [facility] CSD CHEST PAIN [id number] 10/27/2012 09:58:00 10/27/2012 23:59:59 CLS Outpatient [id number] 10/27/2012 20:17:00 10/27/2012 21:59:00 DIS Emergency TOSHA BROOKS MD [facility] ER UNCONTROLABLE SHAKING [id number] 07/11/2017 16:48:00 Document Registration [id number] 03/24/2015 16:13:00 Document Registration [id number] 03/24/2015 16:12:00 Document Registration [id number] 03/24/2015 16:12:00 Document Registration [id number] 03/24/2015 16:12:00 Document Registration [id number] 09/24/2014 11:18:00 Document Registration [id number] 08/22/2014 11:54:00 Document Registration [id number] 07/10/2013 09:00:00 Document Registration [id number] 06/22/2011 13:38:00 Document Registration [id number] 06/08/2011 05:39:00 Document Registration [id number] 06/06/2011 07:41:00 Document Registration [id number] 05/31/2011 14:53:00 Document Registration [id number] 05/23/2011 16:08:00 Document Registration [id number] 05/15/2011 22:45:00 Document Registration [id number] 12/15/2010 11:21:00 Document Registration [id number] 10/12/2010 05:40:00 Document Registration [id number] 10/11/2010 09:02:00 Document Registration [id number] 04/20/2010 11:01:00 Document Registration
[2017-07-11] MEDS ORDERED: cefTRIAXone 1 GM/NS 50 ML IVPB IV SCH ×2 (18:30)
[2017-07-11] MEDS ORDERED: ONDANSETRON 4 MG/2 ML (SDV) Z0FRAN IV PRN (18:45)
[2017-07-11] MEDS ORDERED: CATHETER FLUSH 10 ML SYR IV PRN (18:45)
[2017-07-11 19:15] VITALS: BP 143/65
[2017-07-11] MEDS ORDERED: KETOROLAC 15 MG/ML VIAL IVP NR (20:30)
[2017-07-11] MEDS ORDERED: IBUPROFEN 600 MG (MOTRIN) TAB PO PRN (20:30)
[2017-07-11] MEDS: 1/2 NS W/KCL 20 MEQ/L 1,000 ML IV SCH ×2 (21:57→23:45)
[2017-07-12 00:13] VITALS: BP 128/65
[2017-07-12] MEDS ORDERED: NITROGLYCERIN 0.4 MG SL TABS BTL 25'S SL PRN ×2 (01:00→09:00)
[2017-07-12 03:49] VITALS: BP 127/58
[2017-07-12] MEDS: 1/2 NS W/KCL 20 MEQ/L 1,000 ML IV SCH ×2 (03:53→04:21)
[2017-07-12] MEDS: inSUlin (REGULAR) HUMAN 1 UNIT/0.01 ML (CHARGE PER UNIT) SC SCH ×4 (06:38→22:05)
[2017-07-12 06:41] LABS: BASOPHILS % (AUTO) 0 % (0-10); EOSINOPHILS % (AUTO) 0 % (0-10); HEMATOCRIT 36 % (40-54); HEMOGLOBIN 12.2 G/DL (13.3-17.7); LYMPHOCYTES # (AUTO) 0.3 X 10^3 (1.0-4.0); LYMPHOCYTES % (AUTO) 3 % (12-44); MEAN CORPUSCULAR HEMOGLOBIN 32 PG (25-34); MEAN CORPUSCULAR HGB CONC 34 G/DL (32-36); MEAN CORPUSCULAR VOLUME 94 FL (80-99); MEAN PLATELET VOLUME 11.7 FL (7.4-10.4); MONOCYTES # (AUTO) 0.5 X 10^3 (0.0-1.0); MONOCYTES % (AUTO) 6 % (0-12); NEUTROPHILS # (AUTO) 7.3 X 10^3 (1.8-7.8); NEUTROPHILS % (AUTO) 91 % (42-75); PLATELET COUNT 123 10^3/uL (130-400); RED BLOOD COUNT 3.85 10^6/uL (4.35-5.85); RED CELL DISTRIBUTION WIDTH 13.9 % (10.0-14.5)
[2017-07-12 07:06] LABS: BUN/CREATININE RATIO 13; CALCIUM 8.3 MG/DL (8.5-10.1); CARBON DIOXIDE 23 MMOL/L (21-32); CHLORIDE 107 MMOL/L (98-107); CHOLESTEROL 131 MG/DL (< 200); GFR ESTIMATED 49; GLUCOSE 138 MG/DL (70-105); HDL CHOLESTEROL 26 MG/DL (40-60); POTASSIUM 4.3 MMOL/L (3.6-5.0); SODIUM 137 MMOL/L (135-145); TRIGLYCERIDES 103 MG/DL (<150); VLDL CHOLESTEROL 21 MG/DL (5-40)
[2017-07-12 08:00] VITALS: BP 123/58
[2017-07-12] MEDS ORDERED: cefTRIAXone 1 GM/NS 50 ML IVPB IV SCH ×2 (09:00)
--- NOTE | 2017-07-12 09:00 | History & Physicial ---
History of Present Illness History of Present Illness Reason for visit/HPI PT IS A 77 Y/O MALE WHO IS KNOWN TO ME FROM CLINIC. HE PRESENTED TO THE EMERGENCY DEPARTMENT WITH ACUTE ONSET OF FEVER, CHILLS, CHEST PAIN. HE REPORTS THAT HE WAS SEEN BY HIS UROLOGIST, HAD A URINALYSIS, WAS TREATED WITH BACTRIM FOR A UTI AND HAD ONLY BEEN ABLE TO TAKE ONE DOSE BEFORE HIS SYMPTOMS WORSENED ACUTELY. HE STATES THAT THIS MORNING HE IS FEELING SIGNIFICANTLY IMPROVED, AND HAS NOT HAD CHILLS SINCE LATE LAST NIGHT. HE DENIES CURRENT CHEST PAIN, SHORTNESS OF BREATH, ABDOMINAL PAIN, NAUSEA, CHILLS, OR SENSATION OF FEVER. Date of Admission Jul 11, 2017 at 17:42 Date Seen by Provider: Jul 12, 2017 Time Seen by Provider: 08:45 I consulted on this patient on 07/12/17 08:50 Attending Physician Ryan Shetty MD Admitting Physician Ryan Shetty MD Consult Allergies and Home Medications Allergies Coded Allergies: amiodarone (Unverified Allergy, Unknown, 06/12/17) ciprofloxacin (Verified Adverse Reaction, Mild, HALLUCINATIONS, 02/28/17) clonidine (Verified Adverse Reaction, Mild, HALLUCINATIONS, 02/28/17) Home Medications Apixaban 5 Mg Tablet, 5 MG PO BID, (Reported) Cholecalciferol (Vitamin D3) 1,000 Unit Capsule, 1,000 UNIT PO BID, (Reported) Cyanocobalamin (Vitamin B-12) 1,000 Mcg Tablet.er, 1,000 MCG PO DAILY, (Reported ) Doxazosin Mesylate 1 Mg Tablet, 1 MG PO BID, (Reported) Dutasteride/Tamsulosin HCl 1 Each Cpmp.24hr, 1 CAP PO HS, (Reported) Furosemide 20 Mg Tablet, 20 MG PO DAILY PRN for SWELLING, (Reported) Losartan Potassium 100 Mg Tablet, 100 MG PO DAILY, (Reported) Metoprolol Tartrate 100 Mg Tablet, 50 MG PO BID, (Reported) TAKES 1/2 (100MG) TABLET Multivit-Min/FA/Lycopene/Lut 1 Each Tablet, 1 TAB PO DAILY, (Reported) Nitroglycerin 0.4 Mg Tab.subl, 0.4 MG SL UD PRN for CHEST PAIN, (Reported) Oxybutynin Chloride 15 Mg Tab.er.24, 15 MG PO DAILY, (Reported) Pantoprazole Sodium 40 Mg Tablet.dr, 40 MG PO DAILY, (Reported) Pravastatin Sodium 20 Mg Tablet, 20 MG PO DAILY, (Reported) Saxagliptin HCl 5 Mg Tablet, 5 MG PO DAILY, (Reported) Ubidecarenone 100 Mg Capsule, 100 MG PO HS, (Reported) Past Ydlisdk-Faxkfl-Laucsi Hx Patient Social History Marrital Status: Living Status: LIVES AT HOME WITH SPOUSE Employed/Student: retired Alcohol Use: Denies Use Recreational Drug Use: No Smoking Status: Former Smoker Former Smoker, Quit: Jun 12, 1978 Type Used: Cigarettes 2nd Hand Smoke Exposure: No Physical Abuse Screen: No Sexual Abuse: No Recent Foreign Travel: No Contact w/other who traveled: No Recent Hopitalizations: No Recent Infectious Disease Expo: No Immunizations Up To Date Tetanus Booster (TDap): Unknown Date of Pneumonia Vaccine: Jun 12, 2013 Date of Influenza Vaccine: Apr 12, 2017 Seasonal Allergies Seasonal Allergies: Yes Surgeries Yes (CABG,KIDNEY STONE SX X3,BILAT EYE IMPLANT/CATARACTS, PROSTATE SEED IMPLANTS ) Cardiac, CABG, Coronary Stent, Eye Surgery, Gallbladder, Pacemaker, Renal Respiratory Yes (SLEEP APNEA-CPAP) Sleep Apnea Currently Using CPAP: Yes Currently Using BIPAP: No Cardiovascular Yes (TRIPLE BYPASS, STENT, HX AFIB EPISODES) Angina, Atrial Fibrillation, Chronic Edema/Swelling, Coronary Artery Disease, High Cholesterol, Hypertension Neurological Yes (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) TIA Reproductive System Hx Reproductive Disorders: No Sexually Transmitted Disease: No HIV/AIDS: No Genitourinary Yes (PROSTATE CANCER; PROSTATE ENLARGEMENT) Kidney Infection, Prostate Problems, Bladder Infection, Kidney Stones Gastrointestinal Yes Gastroesophageal Reflux, Chronic Constipation, Polyps Musculoskeletal Yes (MILD, lyme's disease) Arthritis 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, Non-Insulin dep HEENT History of HEENT Disorders: Yes (BILATERAL CATARACT SURGERY) HEENT Disorders: Cataract Loss of Vision: Denies Hearing Impairment: Hard of Hearing Cancer Yes (PROSTATE SEEDS IMPLANTED 10/08) Prostate Type of Treatment: Radiation Psychosocial History of Psychiatric Problem: No Integumentary History of Skin or Integumenta: No Blood Transfusions History of Blood Disorders: No Reviewed Nursing Assessment Reviewed/Agree w Nursing PMH: Yes Family Medical History Significant Family History: Cancer (SON FROM LEUKEMIA), Hypertension Family Hx: Cardiovascular disease 19 FATHER, Diabetes mellitus G8 SISTER Constitutional: chills, fever, malaise EENTM: hearing loss, No hoarseness, No mouth pain, No throat pain Respiratory: No cough, No dyspnea on exertion, short of breath Cardiovascular: edema, Hx of Intervention, No palpitations Gastrointestinal: No abdominal pain, No constipation, No diarrhea, No nausea Genitourinary: frequency Musculoskeletal: muscle weakness Skin: no symptoms reported Psychiatric/Neurological: Denies Anxiety, Denies Depressed All Other Systems Reviewed Negative Unless Noted: Yes Physical Exam Vital Signs Vital Sign - Last 12Hours 07/11/17 07/11/17 16:00 18:18 Temp 101.2 Pulse 120 Resp 20 B/P (MAP) 197/90 (125) Pulse Ox 94 O2 Delivery Nasal Cannula O2 Flow Rate 2.00 Capillary Refill : Less Than 3 Seconds General Appearance: No Apparent Distress, WD/WN Eyes: Bilateral Eye Normal Inspection, Bilateral Eye PERRL, Bilateral Eye EOMI HEENT: PERRL/EOMI, Pharynx Normal Neck: Full Range of Motion, Supple Respiratory: Chest Non Tender, Crackles (IN BASES BILATERALLY), Decreased Breath Sounds (IN BASES) Cardiovascular: Regular Rate, Rhythm, No Edema Gastrointestinal: Normal Bowel Sounds, Non Tender, Soft Rectal: Deferred Back: Normal Inspection, No Vertebral Tenderness Extremity: Normal Capillary Refill, Non Tender, No Calf Tenderness, Pedal Edema (2+) Neurologic/Psychiatric: Alert, Oriented x3, No Motor/Sensory Deficits, Normal Mood/Affect Skin: Normal Color, Warm/Dry Lymphatic: No Adenopathy Assessment/Plan Assessment and Plan SEPSIS URINARY TRACT INFECTION - PROTEUS SPECIES HYPERTENSION HYPOMAGNESEMIA WEAKNESS EDEMA HX OF AFIB HX OF RECENT PACEMAKER PLACEMENT DIABETES MELLITUS HX OF PROSTATE CANCER BPH SEPSIS WITH URINARY TRACT INFECTION - PROTEUS SPECIES - PT ON ROCEPHIN, CONTINUE WITH CURRENT TREATMENT - STOP FLUID PROTOCOL FROM SEPSIS PROTOCOL PT IS STARTING TO HAVE FLUID OVERLOAD. WILL CHANGE FLUIDS TO NORMAL SALINE AND DECREASE RATE FROM 220ML/HR DOWN TO 75ML/HR - GIVE A DOSE OF LASIX ORALLY TODAY WELL. WAITING ON SENSITIVITY FROM URINE CULTURE REPORT. HYPERTENSION - RESUME HOME MEDICATION HYPOMAGNESEMIA - REPLACE WITH IV FLUID TODAY WEAKNESS - OOB, AMBULATE IN [place] TODAY EDEMA - DECREASE FLUID RATE AND GIVE DOSE OF LASIX THIS MORNING. HX OF AFIB - RESUME HOME MEDICATION - RESTART ELIQUIS HX OF RECENT PACEMAKER PLACEMENT DIABETES MELLITUS - RESUME HOME MEDICATION - AND ACCU CHECK AC/HS, SLIDING SCALE A HX OF PROSTATE CANCER - SUPPORTIVE CARE - BPH - RESTART DUTASTERIDE - PHARMACY TO GIVE MEDICATION FROM FORMULARY DVT PROPHYLAXIS WITH SCD'S AND ELIQUIS GI PROPHYLAXIS WITH PEPCID. Problems: Admission Diagnosis SEPSIS URINARY TRACT INFECTION - PROTEUS SPECIES HYPERTENSION HYPOMAGNESEMIA WEAKNESS EDEMA HX OF AFIB HX OF RECENT PACEMAKER PLACEMENT DIABETES MELLITUS HX OF PROSTATE CANCER BPH Clinical Quality Measures AMI/AHF: ASA po Prior to arrival: No DVT/VTE Risk/Contraindication: Risk Factor Score Per Nursin RFS Level Per Nursing on Admit: 4+=Very High RYAN SHETTY MD Jul 12, 2017 09:00
[2017-07-12] MEDS: NS IV 1000 ML 1,000 ML IV SCH ×2 (10:06→20:24)
[2017-07-12] MEDS: LOSARTAN 100 MG (COZAAR) TABLET PO SCH (10:37)
[2017-07-12] MEDS: APIXABAN 5 MG (ELIQUIS) TABLET PO SCH ×2 (10:37→20:23)
[2017-07-12] MEDS: FUROSEMIDE 20 MG (LASIX) TAB PO SCH (10:37)
[2017-07-12] MEDS: doxAzosin 2 MG (CARDURA) TAB PO SCH ×2 (10:37→20:23)
[2017-07-12] MEDS: meTOprolol TARTRATE 50 MG (LOPRESSOR) TAB PO SCH ×2 (10:37→20:23)
[2017-07-12] MEDS: PANTOPRAZOLE 40 MG (PROTONIX) TAB PO SCH (10:38)
[2017-07-12] MEDS: LINAGLIPTIN (TRADJENTA) 5 MG TABLET PO SCH (10:38)
[2017-07-12 12:00] VITALS: BP 115/57
[2017-07-12] MEDS: OXYBUTYNIN (DITROPAN) 5 MG TAB PO SCH ×2 (13:46→20:23)
[2017-07-12 16:00] VITALS: BP 129/57
[2017-07-12] MEDS: MEROPENEM 500 MG in NS (IVPB) 100 ML IV SCH (17:30)
[2017-07-12 20:00] VITALS: BP 141/65
[2017-07-12] MEDS ORDERED: TAMSULOSIN 0.4 MG (FLOMAX) CAP PO SCH (21:00)
[2017-07-13] VITALS: BP 136/61
[2017-07-13] MEDS: MEROPENEM 500 MG in NS (IVPB) 100 ML IV SCH ×2 (00:32→08:57)
[2017-07-13] MEDS: inSUlin (REGULAR) HUMAN 1 UNIT/0.01 ML (CHARGE PER UNIT) SC SCH (06:37)
[2017-07-13 08:00] VITALS: BP 145/70
[2017-07-13 08:55] VITALS: BP 145/70
[2017-07-13] MEDS: OXYBUTYNIN (DITROPAN) 5 MG TAB PO SCH (08:57)
[2017-07-13] MEDS: APIXABAN 5 MG (ELIQUIS) TABLET PO SCH (08:58)
[2017-07-13] MEDS: doxAzosin 2 MG (CARDURA) TAB PO SCH (08:58)
[2017-07-13] MEDS: LINAGLIPTIN (TRADJENTA) 5 MG TABLET PO SCH (08:58)
[2017-07-13] MEDS: meTOprolol TARTRATE 50 MG (LOPRESSOR) TAB PO SCH (08:58)
[2017-07-13] MEDS: PANTOPRAZOLE 40 MG (PROTONIX) TAB PO SCH (08:58)
[2017-07-13] MEDS: FUROSEMIDE 20 MG (LASIX) TAB PO SCH (08:58)
[2017-07-13] MEDS: LOSARTAN 100 MG (COZAAR) TABLET PO SCH (08:58)
[2017-07-13] MEDS ORDERED: CEFI400C2 PO (09:01)
[2017-07-13] MEDS ORDERED: LACT1CAP8 PO (09:01)
[2017-07-13] MEDS ORDERED: NITR100C PO (09:01)
--- NOTE | 2017-07-13 09:02 | Discharge Inst-Complex ---
PDI Med Rec & Follow Up Appt. New Medications: Cefixime (Suprax) 400 Mg Capsule 400 MG PO DAILY, #14 CAP Lactobacillus Acidophilus (Acidophilus) 1 Each Capsule 1 EACH PO TID, #45 CAP Nitrofurantoin Macrocrystal (Nitrofurantoin) 100 Mg Capsule 100 MG PO BID, #28 CAP Continued Medications: Apixaban (Eliquis) 5 Mg Tablet 5 MG PO BID, TAB Cholecalciferol (Vitamin D3) (Vitamin D3) 1,000 Unit Capsule 1000 UNIT PO BID, CAP Cyanocobalamin (Vitamin B-12) (Vitamin B-12) 1,000 Mcg Tablet.er 1000 MCG PO DAILY, TAB Doxazosin Mesylate (Doxazosin Mesylate) 1 Mg Tablet 1 MG PO BID, TAB Dutasteride/Tamsulosin HCl (Dutasteride-Tamsulosin 0.5-0.4) 1 Each Cpmp.24hr 1 CAP PO HS, CAP Furosemide (Furosemide) 20 Mg Tablet 20 MG PO DAILY PRN for SWELLING, TAB Losartan Potassium (Losartan Potassium) 100 Mg Tablet 100 MG PO DAILY, TAB Metoprolol Tartrate (Metoprolol Tartrate) 100 Mg Tablet 50 MG PO BID, TAB TAKES 1/2 (100MG) TABLET Multivit-Min/FA/Lycopene/Lut (Centrum Silver Tablet) 1 Each Tablet 1 TAB PO DAILY, TAB Nitroglycerin (Nitroglycerin) 0.4 Mg Tab.subl 0.4 MG SL UD PRN for CHEST PAIN, TAB Oxybutynin Chloride (Oxybutynin Chloride ER) 15 Mg Tab.er.24 15 MG PO DAILY Pantoprazole Sodium (Pantoprazole Sodium) 40 Mg Tablet.dr 40 MG PO DAILY, TAB Pravastatin Sodium (Pravastatin Sodium) 20 Mg Tablet 20 MG PO DAILY, TAB Saxagliptin HCl (Onglyza) 5 Mg Tablet 5 MG PO DAILY, TAB Ubidecarenone (Coq-10) 100 Mg Capsule 100 MG PO HS, CAP Prescription: [facility] Activity, Diet and PDI Resume Normal Activity: Yes Discharge Diet: Other Diet (RESUME HOME DIET) Diet After 24 Hours: Clear Liquid if Nauseous Drink 6-8 Glasses of Fluid/Day: Yes Driving Instructions: No Driving for 24 Hours Symptoms to Reoprt to : Appetite Changes, Swelling Increased, Fever Over 101 Degrees F, Pain/Pressure in Chest, Urination Difficulty, Diarrhea(Persistant ), Shortness of Breath For Problems or Questions: Contact Your Physician, Go to Emergency Room RYAN LANDON MD Jul 13, 2017 09:02
--- NOTE | 2017-07-13 09:09 | Discharge Summary ---
Diagnosis/Chief Complaint Date of Admission Jul 11, 2017 at 17:42 Date of Discharge Discharge Date: Jul 13, 2017 Discharge Time: 1030 Admission Diagnosis Admission Diagnosis SEPSIS URINARY TRACT INFECTION - PROTEUS SPECIES HYPERTENSION HYPOMAGNESEMIA WEAKNESS EDEMA HX OF AFIB HX OF RECENT PACEMAKER PLACEMENT DIABETES MELLITUS HX OF PROSTATE CANCER BPH Discharge Diagnosis SEPSIS URINARY TRACT INFECTION - PROTEUS SPECIES HYPERTENSION HYPOMAGNESEMIA WEAKNESS EDEMA HX OF AFIB HX OF RECENT PACEMAKER PLACEMENT DIABETES MELLITUS HX OF PROSTATE CANCER BPH Reason Hospital Visit PT IS A 77 Y/O MALE WHO IS KNOWN TO ME FROM CLINIC. HE PRESENTED TO THE EMERGENCY DEPARTMENT WITH ACUTE ONSET OF FEVER, CHILLS, CHEST PAIN. HE REPORTS THAT HE WAS SEEN BY HIS UROLOGIST, HAD A URINALYSIS, WAS TREATED WITH BACTRIM FOR A UTI AND HAD ONLY BEEN ABLE TO TAKE ONE DOSE BEFORE HIS SYMPTOMS WORSENED ACUTELY. HE STATES THAT THIS MORNING HE IS FEELING SIGNIFICANTLY IMPROVED, AND HAS NOT HAD CHILLS SINCE LATE LAST NIGHT. HE DENIES CURRENT CHEST PAIN, SHORTNESS OF BREATH, ABDOMINAL PAIN, NAUSEA, CHILLS, OR SENSATION OF FEVER. Discharge Summary Discharge Physical Examination Allergies: Coded Allergies: amiodarone (Unverified Allergy, Unknown, 06/12/17) ciprofloxacin (Verified Adverse Reaction, Mild, HALLUCINATIONS, 02/28/17) clonidine (Verified Adverse Reaction, Mild, HALLUCINATIONS, 02/28/17) Vitals & I&Os Vital Signs Date Time Temp Pulse Resp B/P (MAP) Pulse Ox O2 Delivery O2 Flow Rate FiO2 07/13/17 00:00 97.2 65 16 136/61 (86) 92 Room Air 07/12/17 21:00 2.00 General Appearance: Alert, Oriented X3, Cooperative, No Acute Distress HEENT: Atraumatic, PERRLA Respiratory: Clear to Auscultation Cardiovascular: Regular Rate Abdominal: Normal Bowel Sounds, Soft, No Tenderness Extremities: No Clubbing, No Cyanosis Skin: No Breakdown Neuro: Normal Speech, Strength at 5/5 X4 Ext, Cranial Nerves 3-12 NL Psych/Mental Status: Mental Status NL, Mood NL Hospital Course SEPSIS URINARY TRACT INFECTION - PROTEUS SPECIES HYPERTENSION HYPOMAGNESEMIA WEAKNESS EDEMA HX OF AFIB HX OF RECENT PACEMAKER PLACEMENT DIABETES MELLITUS HX OF PROSTATE CANCER BPH ADMISSION: SEPSIS WITH URINARY TRACT INFECTION - PROTEUS SPECIES - PT ON ROCEPHIN, CONTINUE WITH CURRENT TREATMENT - STOP FLUID PROTOCOL FROM SEPSIS PROTOCOL PT IS STARTING TO HAVE FLUID OVERLOAD. WILL CHANGE FLUIDS TO NORMAL SALINE AND DECREASE RATE FROM 220ML/HR DOWN TO 75ML/HR - GIVE A DOSE OF LASIX ORALLY TODAY WELL. WAITING ON SENSITIVITY FROM URINE CULTURE REPORT. HYPERTENSION - RESUME HOME MEDICATION HYPOMAGNESEMIA - REPLACE WITH IV FLUID TODAY WEAKNESS - OOB, AMBULATE IN [place] TODAY EDEMA - DECREASE FLUID RATE AND GIVE DOSE OF LASIX THIS MORNING. HX OF AFIB - RESUME HOME MEDICATION - RESTART ELIQUIS HX OF RECENT PACEMAKER PLACEMENT DIABETES MELLITUS - RESUME HOME MEDICATION - AND ACCU CHECK AC/HS, SLIDING SCALE A HX OF PROSTATE CANCER - SUPPORTIVE CARE - BPH - RESTART DUTASTERIDE - PHARMACY TO GIVE MEDICATION FROM FORMULARY DVT PROPHYLAXIS WITH SCD'S AND ELIQUIS GI PROPHYLAXIS WITH PROTONIX DISCHARGE DAY - PT TO BE DISCHARGED TO HOME TODAY - HIS URINE CULTURE REPORT SHOWED THE FOLLOWING: URINE CULTURE Final Verified 07/13/17- 0838Final Source: URINE / CLEAN CATCH Order Location: EMERGENCY ROOM PLUS, MIXED GRAM POSITIVES <10,000/ML Organism 1 PROTEUS MIRABILIS >100,000/ML Organism 2 ESCHERICHIA COLI >100,000/ML ESBL REPORTED TO DR LANDON 07/12/17 16:30. COMPLETE SENSITIVITY REPORTED 07/13/17 8:30 Unusual resistance pattern, ESBL identified. PRO MIRABI ESC COLI INTERP INTERP AMPICILLIN S R GENTAMICIN S R TOBRAMYCIN S I CEFAZOLIN S R CEFTRIAXONE S R CEFEPIME R AMP/SULBACTAM S I PIP/TAZO S TRIMETH/SULFA S R CIPROFLOXACIN S R MEROPENEM S S NITROFURANTOIN R S AZTREONAM S R ESBL + THEREFORE, THE PATIENT WILL BE STARTED ON SUPRAX 400MG DAILY X 14 DAYS AND NITROFURANTOIN 100MG BID X 14 DAYS - SINCE THIS IS A RECURRENT INFECTION FOR HIM AND HE HAS NOT COMPLETELY CLEARED THE INFECTION SERIALLY ON SHORTER TERM TREATMENTS. DOCUMENTED ON HIS ADMISSION NOTE - THE PATIENT HAS SPENT TWO MIDNIGHTS IN THE HOSPITAL 07/11/16, 07/12/17 AND WILL BE DISCHARGED TO HOME TODAY WITH ORAL ANTIBIOTICS HIS SYMPTOMS OF SEPSIS HAVE RESOLVED. PT TO BE SEEN IN THE OFFICE IN ONE WEEK FROM DISCHARGE. Pending Labs Laboratory Tests 07/13/17 06:25: Glucometer 109 Discharge Condition at discharge IMPROVING Instructions to patient/family Please see electronic discharge instructions given to patient. Discharge Medications Reviewed and agree with Discharge Medication list on patient's Discharge Instruction sheet Clinical Quality Measures AMI/AHF: ASA po Prior to arrival: No DVT/VTE Risk/Contraindication: Risk Factor Score Per Nursin RFS Level Per Nursing on Admit: 4+=Very High RYAN LANDON MD Jul 13, 2017 09:09
[2017-07-13] MEDS ORDERED: guaiFENesin (MUCINEX) 600 MG TAB PO NR (09:15)
[2017-07-13 09:52] VITALS: BP 196/85
[2017-07-13] MEDS: NS IV 1000 ML 1,000 ML IV SCH (10:58)
[2017-07-13] MEDS ORDERED: FINASTERIDE (PROSCAR) 5 MG TAB PO SCH (21:00)
== END 2017-07-13 11:30 | disposition home or self-care (01) | DRG 872 ==
LOC: EDUNIT# 15:45 → ER 15:46 → UNDOADMIN 17:42 → 4TH 17:42
PROVIDERS: ADMIT Family Medicine; ATTEND Family Medicine
DX: A41.4 Sepsis due to anaerobes (principal); N39.0 Urinary tract infection, site not specified; B96.4 Proteus (mirabilis) (morganii) as the cause of diseases classified elsewhere; I10 Essential (primary) hypertension; E11.9 Type 2 diabetes mellitus without complications; R07.9 Chest pain, unspecified; I25.119 Atherosclerotic heart disease of native coronary artery with unspecified angina pectoris; N40.0 Benign prostatic hyperplasia without lower urinary tract symptoms; I48.91 Unspecified atrial fibrillation; E87.70 Fluid overload, unspecified; G47.30 Sleep apnea, unspecified; E78.00 Pure hypercholesterolemia, unspecified; I34.0 Nonrheumatic mitral (valve) insufficiency; I45.10 Unspecified right bundle-branch block; H91.90 Unspecified hearing loss, unspecified ear; K21.9 Gastro-esophageal reflux disease without esophagitis; M19.91 Primary osteoarthritis, unspecified site; E83.42 Hypomagnesemia; Z85.46 Personal history of malignant neoplasm of prostate; Z92.3 Personal history of irradiation; Z95.0 Presence of cardiac pacemaker; Z95.5 Presence of coronary angioplasty implant and graft; Z95.1 Presence of aortocoronary bypass graft; Z87.891 Personal history of nicotine dependence; Z79.84 Long term (current) use of oral hypoglycemic drugs; Z86.73 Personal history of transient ischemic attack (TIA), and cerebral infarction without residual deficits; Z87.01 Personal history of pneumonia (recurrent); Z86.19 Personal history of other infectious and parasitic diseases; Z87.442 Personal history of urinary calculi; Z86.010 Personal history of colon polyps
CPT/HCPCS: 36415; 71045; 80048; 80053; 80061; 81000; 82962; 83605; 83735; 83874; 83880; 84484; 85007; 85025; 85027; 85610; 85730; 87040; 87077; 87088; 87186; 87804; 93005; 93041; 96361; 96365

== ENCOUNTER 2017-08-05 22:56 | Emergency (ER) | payer MEDICARE, BC ==
[~2017-08-05] VITALS: Ht 182.9 cm; Wt 113.7 kg
[~2017-08-05 22:56] MED LIST changes: +CEFI400C2 PO; +LACT1CAP8 PO; +NITR100C PO
[2017-08-06] MEDS ORDERED: RX-OSELTAMIVIR 75 MG (TAMIFLU) BOX OF 10 PO STA (00:07)
[2017-08-06] MEDS ORDERED: AZIT500T PO (00:10)
[2017-08-06] MEDS ORDERED: CEFD300C3 PO (00:10)
[2017-08-06] MEDS ORDERED: BENZ-13 PO (00:10)
[2017-08-06] MEDS ORDERED: METH4TAB PO (00:10)
--- NOTE | 2017-08-06 00:11 | ED Cough/URI ---
General Chief Complaint: Cough/Cold/Flu Symptoms Stated Complaint: COLD SYMPTOMS Nursing Triage Note: PT REPORTS COUGH/CONGESTION FOR SEVERAL DAYS. HE IS AFEBRILE. Source: patient, spouse History of Present Illness Date Seen by Provider: Aug 05, 2017 Time Seen by Provider: 23:12 Initial Comments PT AND BOTH BEING SEEN TONIGHT FOR SAME PT BEGAN GETTING SICK ON Monday08/02/17 AND BEGAN GETTING SICK YESTERDAY C/O PRODUCTIVE COUGH WITH BROWN/YELLOW SPUTUM NO SHORTNESS OF BREATHE BUT HAS CHEST TIGHTNESS/PAIN WITH COUGHING NO FEVER/SWEATS/CHILLS NO HEADACHE OR BODY ACHES BOTH RECEIVED FLU VACCINATIONS THIS YEAR HAS BEEN USING PHENERGAN / CODEINE COUGH SYRUP WITHOUT SIGNIFICANT IMPROVEMENT IN COUGH-RX CALLED IN 08/03/17 HAS NOT SOUGHT CARE UNTIL TODAY SYMPTOMS NO DIFFERENT TONIGHT--EXTREMELY BAD WEATHER/ ICE STORM CURRENTLY PCP: DR. LANDON Allergies and Home Medications Allergies Coded Allergies: amiodarone (Unverified Allergy, Unknown, 06/12/17) ciprofloxacin (Verified Adverse Reaction, Mild, HALLUCINATIONS, 02/28/17) clonidine (Verified Adverse Reaction, Mild, HALLUCINATIONS, 02/28/17) Home Medications Apixaban 5 Mg Tablet, 5 MG PO BID, (Reported) Azithromycin 500 Mg Tablet, 500 MG PO DAILY, #5 FOR INFECTION Prescribed by: MAGDALENA CROWE on 08/06/17 0010 Benzonatate 100 Mg Capsule, 1-2 TAB PO TID, #30 Prescribed by: MAGDALENA CROWE on 08/06/17 0010 Cefdinir 300 Mg Capsule, 300 MG PO BID, #20 Prescribed by: MAGDALENA CROWE on 08/06/17 0010 Cefixime 400 Mg Capsule, 400 MG PO DAILY, #14 Prescribed by: RYAN LANDON on 07/13/17 0901 Cholecalciferol (Vitamin D3) 1,000 Unit Capsule, 1,000 UNIT PO BID, (Reported) Cyanocobalamin (Vitamin B-12) 1,000 Mcg Tablet.er, 1,000 MCG PO DAILY, (Reported ) Doxazosin Mesylate 1 Mg Tablet, 1 MG PO BID, (Reported) Dutasteride/Tamsulosin HCl 1 Each Cpmp.24hr, 1 CAP PO HS, (Reported) Furosemide 20 Mg Tablet, 20 MG PO DAILY PRN for SWELLING, (Reported) Lactobacillus Acidophilus 1 Each Capsule, 1 EACH PO TID, #45 Prescribed by: RYAN LANDON on 07/13/17 0901 Losartan Potassium 100 Mg Tablet, 100 MG PO DAILY, (Reported) Methylprednisolone 4 Mg Tab.ds.pk, 4 MG PO UD, #1 Prescribed by: MAGDALENA CROWE on 08/06/17 0010 Metoprolol Tartrate 100 Mg Tablet, 50 MG PO BID, (Reported) TAKES 1/2 (100MG) TABLET Multivit-Min/FA/Lycopene/Lut 1 Each Tablet, 1 TAB PO DAILY, (Reported) Nitrofurantoin Macrocrystal 100 Mg Capsule, 100 MG PO BID, #28 Prescribed by: RYAN LANDON on 07/13/17 0901 Nitroglycerin 0.4 Mg Tab.subl, 0.4 MG SL UD PRN for CHEST PAIN, (Reported) Oxybutynin Chloride 15 Mg Tab.er.24, 15 MG PO DAILY, (Reported) Pantoprazole Sodium 40 Mg Tablet.dr, 40 MG PO DAILY, (Reported) Pravastatin Sodium 20 Mg Tablet, 20 MG PO DAILY, (Reported) Saxagliptin HCl 5 Mg Tablet, 5 MG PO DAILY, (Reported) Ubidecarenone 100 Mg Capsule, 100 MG PO HS, (Reported) Constitutional: No chills, No diaphoresis, No dizziness, No fever, malaise, weakness EENTM: see HPI, nose congestion, other (NO DRAINAGE) Respiratory: cough, phlegm, No short of breath, No wheezing Cardiovascular: see HPI, chest pain (WITH COUGHING) Genitourinary: no symptoms reported Musculoskeletal: no symptoms reported Skin: no symptoms reported Psychiatric/Neurological: No Symptoms Reported Hematologic/Lymphatic: No Symptoms Reported Immunological/Allergic: no symptoms reported Past Gtdajkf-Dybysk-Ribbfh Hx Patient Social History Alcohol Use: Denies Use Recreational Drug Use: No Smoking Status: Former Smoker Type Used: Cigarettes Former Smoker, Quit: Jun 12, 1978 2nd Hand Smoke Exposure: No Recent Foreign Travel: No Contact w/Someone Who Travel: No Recent Infectious Disease Expo: No Recent Hopitalizations: No Immunizations Up To Date Tetanus Booster (TDap): Unknown Date of Pneumonia Vaccine: Jun 12, 2013 Date of Influenza Vaccine: Apr 12, 2017 Seasonal Allergies Seasonal Allergies: Yes Surgeries History of Surgeries: Yes (CABG,KIDNEY STONE SX X3,BILAT EYE IMPLANT/CATARACTS , PROSTATE SEED IMPLANTS) Surgeries: Cardiac, CABG, Coronary Stent, Eye Surgery, Gallbladder, Pacemaker, Renal Respiratory History of Respiratory Disorde: Yes (SLEEP APNEA-CPAP) Respiratory Disorders: Pneumonia, Sleep Apnea Currently Using CPAP: Yes Currently Using BIPAP: No Cardiovascular History of Cardiac Disorders: Yes (TRIPLE BYPASS, STENT, HX AFIB EPISODES) Cardiac Disorders: Angina, Atrial Fibrillation, Chronic Edema/Swelling, Coronary Artery Disease, High Cholesterol, Hypertension Neurological History of Neurological Disord: Yes (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) Neurological Disorders: TIA Reproductive System Hx Reproductive Disorders: No Sexually Transmitted Disease: No HIV/AIDS: No Genitourinary History of Genitourinary Disor: Yes (PROSTATE CANCER; PROSTATE ENLARGEMENT) Genitourinary Disorders: Kidney Infection, Prostate Problems, Bladder Infection , Kidney Stones Gastrointestinal History of Gastrointestinal Di: Yes Gastrointestinal Disorders: Gastroesophageal Reflux, Chronic Constipation, Polyps Musculoskeletal History of Musculoskeletal Dis: Yes (MILD, lyme's disease) Musculoskeletal Disorders: Arthritis 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, Non-Insulin dep HEENT History of HEENT Disorders: Yes (BILATERAL CATARACT SURGERY) HEENT Disorders: Cataract Loss of Vision: Denies Hearing Impairment: Hard of Hearing Cancer History of Cancer: Yes (PROSTATE SEEDS IMPLANTED 10/08) Cancer: Prostate Did You Recieve Any Treatments: Yes Type of Tx Receive: Radiation Psychosocial History of Psychiatric Problem: No Integumentary History of Skin or Integumenta: No Blood Transfusions History of Blood Disorders: No Family Medical History Significant Family History: Cancer, Hypertension Family Medial History: Cardiovascular disease 19 FATHER, Diabetes mellitus G8 SISTER Physical Exam Vital Signs Vital Signs - First Documented 08/05/17 23:20 Temp 98.7 Pulse 78 Resp 16 B/P (MAP) 191/96 (127) Pulse Ox 96 O2 Delivery Room Air Capillary Refill : Less Than 3 Seconds General Appearance: WD/WN, no apparent distress HEENT: other (NASAL CONGESTION, NO SIGNIFICANT DRAINAGE) Respiratory: no respiratory distress, no accessory muscle use, No rales, No rhonchi, No wheezing, other (LUNG SOUNDS SLIGHTLY COARSE) Cardiovascular: regular rate, rhythm, no murmur Gastrointestinal: soft Extremities: normal inspection 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, no motor/sensory deficits, alert, normal mood/affect, oriented x 3 Skin: normal color, warm/dry Progress/Results/Core Measures Suspected Sepsis Recent Fever Within 48 Hours: No Infection Criteria Present: None New/Unexplained Altered Menta: No Sepsis Screen: No Definite Risk Sepsis Diagnosis: SIRS Temperature:98.7 Pulse: 78 Respiratory Rate: 16 Blood Pressure 191 /96 Mean: 127 Results/Orders Micro Results Microbiology 08/05/17 Influenza Types A,B Antigen (FREDERICK) - Final, Complete My Orders Orders - MAGDALENA CROWE DO Influenza A And B Antigens (08/05/17 23:12) Ceftriaxone Injection (Rocephin Injectio (08/06/17 00:15) Lidocaine 1% Injection (Xylocaine 1% Inj (08/06/17 00:15) Benzonatate Capsule (Tessalon Perles) (08/06/17 09:00) Rx-Oseltamivir Caps (Rx-Tamiflu Caps) (08/06/17 00:07) Benzonatate Capsule (Tessalon Perles) (08/06/17 00:15) Medications Given in ED Current Medications Medications Dose Ordered Sig/Mariajose Route Start Time Stop Time Status Last Admin Dose Admin Ceftriaxone Sodium 1,000 mg ONCE ONCE IM 08/06/17 00:15 08/06/17 00:16 DC 08/06/17 00:25 1,000 MG Vital Signs/I&O Vital Sign - Last 12Hours 08/05/17 23:20 Temp 98.7 Pulse 78 Resp 16 B/P (MAP) 191/96 (127) Pulse Ox 96 O2 Delivery Room Air Capillary Refill : Less Than 3 Seconds Blood Pressure Mean: 127 Departure Impression Impression: Primary Impression: Influenza-like illness Additional Impressions: Bronchitis Upper respiratory infection Disposition: 01 HOME, SELF-CARE Condition: Stable Departure-Patient Inst. Referrals: RYAN LANDON MD (PCP/Family) Primary Care Physician Patient Instructions: Acute Bronchitis, Adult (DC), Flu, Adult (DC), Bacterial Upper Respiratory Infection, Adult (DC), Cough, Runny Nose, and the Common Cold (DC), Viral Upper Respiratory Infection, Adult (DC) Add. Discharge Instructions: LOTS OF CLEAR LIQUIDS TYLENOL AND MOTRIN NEEDED FOR PAIN OR FEVER CONTINUE PHENERGAN WITH CODEINE COUGH SYRUP NEEDED FOR COUGH PLAIN MUCINEX FOR CONGESTION FLONASE FOR NASAL CONGESTION FOLLOW UP WITH DR. LANDON IN 3-4 DAYS IF NO BETTER All discharge instructions reviewed with patient and/or family. Voiced understanding. Scripts Methylprednisolone (Medrol) 4 Mg Tab.ds.pk 4 MG PO UD, #1 PKG Prov: MAGDALENA CROWE DO 08/06/17 Benzonatate (Tessalon Perle) 100 Mg Capsule 1-2 TAB PO TID for Cough, #30 CAP Prov: MAGDALENA CROWE DO 08/06/17 Azithromycin (Zithromax) 500 Mg Tablet 500 MG PO DAILY, #5 TAB FOR INFECTION Prov: MAGDALENA CROWE DO 08/06/17 Cefdinir (Cefdinir) 300 Mg Capsule 300 MG PO BID for FOR INFECTION, #20 CAP Prov: MAGDALENA CROWE DO 08/06/17 MAGDALENA CROWE DO Aug 06, 2017 00:11
[2017-08-06] MEDS ORDERED: cefTRIAXone 1 GM (ROCEPHIN) VIAL IM ONE (00:15)
[2017-08-06] MEDS ORDERED: BENZONATATE 100 MG (TESSALON) CAPSULE PO ONE (00:15)
[2017-08-06] MEDS ORDERED: LIDOCAINE 1% INJ 20 ML (XYLOCAINE) VIAL INJ ONE (00:15)
[2017-08-06 00:40] VITALS: BP 191/96
[2017-08-06] MEDS ORDERED: BENZONATATE 100 MG (TESSALON) CAPSULE PO SCH (09:00)
== END 2017-08-06 00:40 | disposition home or self-care (01) ==
LOC: EDUNIT# 22:56 → ER 22:58
DX: J11.1 Influenza due to unidentified influenza virus with other respiratory manifestations (principal); J21.9 Acute bronchiolitis, unspecified; J06.9 Acute upper respiratory infection, unspecified; K21.9 Gastro-esophageal reflux disease without esophagitis; E11.9 Type 2 diabetes mellitus without complications; I48.91 Unspecified atrial fibrillation; I25.10 Atherosclerotic heart disease of native coronary artery without angina pectoris; E78.00 Pure hypercholesterolemia, unspecified; I10 Essential (primary) hypertension; G47.30 Sleep apnea, unspecified; Z87.891 Personal history of nicotine dependence; Z86.73 Personal history of transient ischemic attack (TIA), and cerebral infarction without residual deficits; Z87.442 Personal history of urinary calculi; Z85.46 Personal history of malignant neoplasm of prostate; Z92.3 Personal history of irradiation; Z95.1 Presence of aortocoronary bypass graft; Z95.0 Presence of cardiac pacemaker; Z95.5 Presence of coronary angioplasty implant and graft; Z88.1 Allergy status to other antibiotic agents; Z88.8 Allergy status to other drugs, medicaments and biological substances
CPT/HCPCS: 87804; 96372; 99284

== ENCOUNTER 2017-11-11 06:33 | Inpatient (IN) | payer MEDICARE, BC ==
[~2017-11-11] VITALS: Ht 182.9 cm; Wt 111.6 kg
[~2017-11-11 06:33] MED LIST changes: +AZIT500T PO; +BENZ-13 PO; +CEFD300C3 PO; +METH4TAB PO
[2017-11-11] MEDS ORDERED: NITROGLYCERIN 2% OINT 1 GM UNIT DOSE PACKET TOP ONE (07:00)
[2017-11-11 07:04] LABS: BASOPHILS % (AUTO) 0 % (0-10); EOSINOPHILS # (AUTO) 0.1 10^3/uL (0.0-0.3); EOSINOPHILS % (AUTO) 3 % (0-10); HEMATOCRIT 41 % (40-54); HEMOGLOBIN 13.7 G/DL (13.3-17.7); LYMPHOCYTES # (AUTO) 1.7 X 10^3 (1.0-4.0); LYMPHOCYTES % (AUTO) 40 % (12-44); MEAN CORPUSCULAR HEMOGLOBIN 31 PG (25-34); MEAN CORPUSCULAR HGB CONC 34 G/DL (32-36); MEAN CORPUSCULAR VOLUME 91 FL (80-99); MEAN PLATELET VOLUME 12.1 FL (7.4-10.4); MONOCYTES # (AUTO) 0.7 X 10^3 (0.0-1.0); MONOCYTES % (AUTO) 17 % (0-12); NEUTROPHILS # (AUTO) 1.8 X 10^3 (1.8-7.8); NEUTROPHILS % (AUTO) 41 % (42-75); PLATELET COUNT 156 10^3/uL (130-400); RED BLOOD COUNT 4.44 10^6/uL (4.35-5.85); RED CELL DISTRIBUTION WIDTH 14.5 % (10.0-14.5); WHITE BLOOD COUNT 4.3 10^3/uL (4.3-11.0)
[2017-11-11] MEDS: NS IV 1000 ML 1,000 ML IV SCH ×3 (07:11→11:57)
--- NOTE | 2017-11-11 07:12 | ED Chest Pain ---
General Chief Complaint: Chest Pain Stated Complaint: CP Nursing Triage Note: AMB TO ED, CHEST PAIN STARTING AT BEDTIME LAST NIGHT. PT REPORTS GERD HX IN ADDITION TO CARDIAC HX. Nursing Sepsis Screen: No Definite Risk Source: patient, family Exam Limitations: no limitations History of Present Illness Date Seen by Provider: November 11, 2017 Time Seen by Provider: 07:00 Initial Comments A 77-year-old white male presents with complaint of pressure type chest pain that started last night when he went to bed and progressed until it was a 9 out of 10 this morning. Patient partially relieved the chest pain with 2 sublingual nitroglycerin. He presented to the emergency department for evaluation. The patient has a history of intermittent atrial fibrillation. His heart rate was irregular last night. Patient denies associated diaphoresis, radiation of the anterior chest pain, shortness of breath, nausea or vomiting. Patient has a history of bypass surgery and stents. He's had a pacemaker placed. Patient suffers from significant GERD. He's had similar pain from his GERD in the past. Patient has a history of intermittent atrial fibrillation. His cardiologists are Dr. Culver and Dr. Soria. At this point the patient's pressure type chest pain as a 4/10. The patient has been compliant on his medications which include Eliquis and omeprazole. The patient has prescriptions for antihypertensives, diuretics, and nitroglycerin. Allergies and Home Medications Allergies Coded Allergies: amiodarone (Unverified Allergy, Unknown, 06/12/17) ciprofloxacin (Verified Adverse Reaction, Mild, HALLUCINATIONS, 02/28/17) clonidine (Verified Adverse Reaction, Mild, HALLUCINATIONS, 02/28/17) Home Medications Apixaban 5 Mg Tablet, 5 MG PO BID, (Reported) Cholecalciferol (Vitamin D3) 1,000 Unit Capsule, 1,000 UNIT PO BID, (Reported) Cyanocobalamin (Vitamin B-12) 1,000 Mcg Tablet.er, 1,000 MCG PO DAILY, (Reported ) Doxazosin Mesylate 1 Mg Tablet, 1 MG PO BID, (Reported) Dutasteride/Tamsulosin HCl 1 Each Cpmp.24hr, 1 CAP PO HS, (Reported) Furosemide 20 Mg Tablet, 20 MG PO DAILY PRN for SWELLING, (Reported) Lactobacillus Acidophilus 1 Each Capsule, 1 EACH PO TID Prescribed by: RYAN LANDON on 07/13/17 0901 Losartan Potassium 100 Mg Tablet, 100 MG PO DAILY, (Reported) Metoprolol Tartrate 100 Mg Tablet, 50 MG PO BID, (Reported) TAKES 1/2 (100MG) TABLET Multivit-Min/FA/Lycopene/Lut 1 Each Tablet, 1 TAB PO DAILY, (Reported) Nitroglycerin 0.4 Mg Tab.subl, 0.4 MG SL UD PRN for CHEST PAIN, (Reported) Oxybutynin Chloride 15 Mg Tab.er.24, 15 MG PO DAILY, (Reported) Pantoprazole Sodium 40 Mg Tablet.dr, 40 MG PO DAILY, (Reported) Pravastatin Sodium 20 Mg Tablet, 20 MG PO DAILY, (Reported) Saxagliptin HCl 5 Mg Tablet, 5 MG PO DAILY, (Reported) Ubidecarenone 100 Mg Capsule, 100 MG PO HS, (Reported) Patient Home Medication List Home Medication List Reviewed: Yes Review of Systems Constitutional: No diaphoresis; dizziness; No fever EENTM: No Blurred Vision Respiratory: Denies Cough Cardiovascular: See HPI, Chest Pain, Irregular Heart Rate Gastrointestinal: Denies Abdomen Distended, Denies Nausea, Denies Vomiting Genitourinary: Denies Frequency Musculoskeletal: No back pain Skin: No change in color Psychiatric/Neurological: Denies Anxiety, Denies Depressed Endocrine: Denies Excessive Sweating Hematologic/Lymphatic: No Symptoms Reported Past Jknrspp-Ntgfbc-Szltxg Hx Past Med/Social Hx: Reviewed Nursing Past Med/Soc Hx Patient Social History Alcohol Use: Denies Use Recreational Drug Use: No Smoking Status: Former Smoker Type Used: Cigarettes Former Smoker, Quit: Jun 12, 1978 2nd Hand Smoke Exposure: No Recent Foreign Travel: No Contact w/Someone Who Travel: No Recent Infectious Disease Expo: No Recent Hopitalizations: No Immunizations Up To Date Tetanus Booster (TDap): Unknown Date of Pneumonia Vaccine: Jun 12, 2013 Date of Influenza Vaccine: Apr 12, 2017 Seasonal Allergies Seasonal Allergies: Yes Past Medical History Surgeries: Yes (CABG,KIDNEY STONE SX X3,BILAT EYE IMPLANT/CATARACTS, PROSTATE SEED IMPLANTS) Cardiac, CABG, Coronary Stent, Eye Surgery, Gallbladder, Pacemaker, Renal Respiratory: Yes (SLEEP APNEA-CPAP) Pneumonia, Sleep Apnea Currently Using CPAP: Yes Currently Using BIPAP: No Cardiac: Yes (TRIPLE BYPASS, STENT, HX AFIB EPISODES) Angina, Atrial Fibrillation, Chronic Edema/Swelling, Coronary Artery Disease, High Cholesterol, Hypertension Neurological: Yes (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) TIA Reproductive Disorders: No Sexually Transmitted Disease: No HIV/AIDS: No Genitourinary: Yes (PROSTATE CANCER; PROSTATE ENLARGEMENT) Kidney Infection, Prostate Problems, Bladder Infection, Kidney Stones Gastrointestinal: Yes Gastroesophageal Reflux, Chronic Constipation, Polyps Musculoskeletal: Yes (MILD, lyme's disease) Arthritis Endocrine: Yes (Type II) Diabetes, Non-Insulin dep HEENT: Yes (BILATERAL CATARACT SURGERY) Cataract Loss of Vision: Denies Hearing Impairment: Hard of Hearing Cancer: Yes (PROSTATE SEEDS IMPLANTED 10/08) Prostate Did You Recieve Any Treatments: Yes What Type of Treatment Did You: Radiation Psychosocial: No Integumentary: No Blood Disorders: No Family Medical History Cardiovascular disease 19 FATHER, Diabetes mellitus G8 SISTER Cancer, Hypertension Physical Exam Vital Signs Vital Signs - First Documented Capillary Refill : Less Than 3 Seconds General Appearance: No Apparent Distress, WD/WN HEENT: Normal ENT Inspection Neck: Normal Inspection Respiratory: Lungs Clear, Normal Breath Sounds Cardiovascular: Normal Peripheral Pulses, Irregularly Irregular Gastrointestinal: Normal Bowel Sounds, Non Tender, Soft Extremity: Normal Capillary Refill, Pedal Edema (2+ pretibial edema.) Neurologic/Psychiatric: Alert, Oriented x3, No Motor/Sensory Deficits, Normal 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, 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 Skin: Normal Color, Warm/Dry; No Diaphoresis Progress/Results/Core Measures Results/Orders Lab Results Laboratory Tests Test 11/11/17 06:46 Range/Units White Blood Count 4.3 4.3-11.0 10^3/uL Red Blood Count 4.44 4.35-5.85 10^6/uL Hemoglobin 13.7 13.3-17.7 G/DL Hematocrit 41 40-54 % Mean Corpuscular Volume 91 80-99 FL Mean Corpuscular Hemoglobin 31 25-34 PG Mean Corpuscular Hemoglobin Concent 34 32-36 G/DL Red Cell Distribution Width 14.5 10.0-14.5 % Platelet Count 156 130-400 10^3/uL Mean Platelet Volume 12.1 H 7.4-10.4 FL Neutrophils (%) (Auto) 41 L 42-75 % Lymphocytes (%) (Auto) 40 12-44 % Monocytes (%) (Auto) 17 H 0-12 % Eosinophils (%) (Auto) 3 0-10 % Basophils (%) (Auto) 0 0-10 % Neutrophils # (Auto) 1.8 1.8-7.8 X 10^3 Lymphocytes # (Auto) 1.7 1.0-4.0 X 10^3 Monocytes # (Auto) 0.7 0.0-1.0 X 10^3 Eosinophils # (Auto) 0.1 0.0-0.3 10^3/uL Basophils # (Auto) 0.0 0.0-0.1 10^3/uL Prothrombin Time 15.6 H 12.2-14.7 SEC INR Comment 1.2 0.8-1.4 Sodium Level 141 135-145 MMOL/L Potassium Level 3.8 3.6-5.0 MMOL/L Chloride Level 109 H 98-107 MMOL/L Carbon Dioxide Level 21 21-32 MMOL/L Anion Gap 11 5-14 MMOL/L Blood Urea Nitrogen 11 7-18 MG/DL Creatinine 0.82 0.60-1.30 MG/DL Estimat Glomerular Filtration Rate > 60 BUN/Creatinine Ratio 13 Glucose Level 153 H 70-105 MG/DL Calcium Level 9.6 8.5-10.1 MG/DL Total Bilirubin 0.8 0.1-1.0 MG/DL Aspartate Amino Transf (AST/SGOT) 18 5-34 U/L Alanine Aminotransferase (ALT/SGPT) 14 0-55 U/L Alkaline Phosphatase 38 L 40-136 U/L Troponin I < 0.30 <0.30 NG/ML Total Protein 6.6 6.4-8.2 GM/DL Albumin 4.1 3.2-4.5 GM/DL My Orders Orders - JEFF ENRIQUEZ MD Ekg Tracing (11/11/17 06:57) Troponin I (11/11/17 06:57) Comprehensive Metabolic Panel (11/11/17 06:57) Cbc With Automated Diff (11/11/17 06:57) Protime With Inr (11/11/17 06:57) Chest 1 View, Ap/Pa Only (11/11/17 06:57) Ns Iv 1000 Ml (Sodium Chloride 0.9%) (11/11/17 07:00) Nitroglycerin Ointment (Nitrobid Ointme (11/11/17 07:00) Famotidine Injection (Pepcid Injection) (11/11/17 09:00) Salicylate (11/11/17 07:53) Ranitidine Injection (Zantac Injection) (11/11/17 09:00) Medications Given in ED Current Medications Medications Dose Ordered Sig/Mariajose Route Start Time Stop Time Status Last Admin Dose Admin Nitroglycerin 1 inch ONCE ONCE TOP 11/11/17 07:00 11/11/17 07:01 DC 11/11/17 07:10 1 INCH Vital Signs/I&O 11/11/17 11/11/17 06:33 06:33 Temp 97.2 Pulse 83 Resp 20 B/P (MAP) 165/84 (111) Pulse Ox 97 O2 Delivery Room Air Room Air Blood Pressure Mean: 111 Progress Progress Note : Time: 08:00 Progress Note The patient's EKG demonstrated atrial fib with a new bifascicular block. This was changed from patient's most recent tracing of 07/11/17. The patient's residual chest pain was relieved with a sublingual nitroglycerin in the emergency department. Patient had an inch of Nitropaste applied. He remained pain-free in the emergency department. Patient's laboratory evaluation failed to demonstrate an elevated troponin. The patient's portable chest x-ray was without evidence of acute pathology. Patient received an aspirin orally and his Eliquis was held after telephone consultation with Dr. Groves who is kind enough to admit the patient. Departure Communication (Admissions) Time/Spoke to Admitting Phy: 08:04 Dr. Groves. Impression Primary Impression: Chest pain Qualified Codes: I20.8 - Other forms of angina pectoris Disposition: ADMITTED INPATIENT Condition: Improved Admissions Decision to Admit Reason: Admit from ER (General) Decision to Admit/Date: November 11, 2017 Time/Decision to Admit Time: 08:05 Departure-Patient Inst. Referrals: RYAN LANDON MD (PCP/Family) Primary Care Physician JEFF ENRIQUEZ MD November 11, 2017 07:12
[2017-11-11 07:16] LABS: INR 1.2 (0.8-1.4); PROTHROMBIN TIME PATIENT 15.6 SEC (12.2-14.7)
[2017-11-11 07:24] LABS: ALANINE AMINOTRANSFERASE 14 U/L (0-55); ALBUMIN 4.1 GM/DL (3.2-4.5); ALKALINE PHOSPHATASE 38 U/L (40-136); BILIRUBIN,TOTAL 0.8 MG/DL (0.1-1.0); BUN/CREATININE RATIO 13; CALCIUM 9.6 MG/DL (8.5-10.1); CARBON DIOXIDE 21 MMOL/L (21-32); CHLORIDE 109 MMOL/L (98-107); CREATININE SERUM 0.82 MG/DL (0.60-1.30); GFR ESTIMATED > 60; GLUCOSE 153 MG/DL (70-105); POTASSIUM 3.8 MMOL/L (3.6-5.0); SODIUM 141 MMOL/L (135-145); TOTAL PROTEIN 6.6 GM/DL (6.4-8.2)
--- NOTE | 2017-11-11 07:41 | Diagnostic Imaging Report ---
Indication: Chest pain. Comparison: 07/11/2017. Findings: Stable mild cardiomegaly with left pectoral transvenous pacemaker in place. Visible lungs are clear. Posterior lower lobes are poorly evaluated by portable radiography. No pleural effusion or pneumothorax. Normal pulmonary vasculature. Impression: No acute cardiopulmonary process by portable radiography. Dictated by: Dictated on workstation # [id number]
[2017-11-11] MEDS ORDERED: ASPIRIN 325 MG (5 GR) TABLET ONE (08:05)
[2017-11-11] MEDS ORDERED: raNItidine 50 MG/2 ML INJ (ZANTAC) IJ SCH ×2 (08:15→09:00)
[2017-11-11] MEDS ORDERED: FAMOTIDINE 20MG/2ML IV (PEPCID) IVP SCH (09:00)
--- NOTE | 2017-11-11 09:27 | Consultation-Cardiology ---
HPI-Cardiology Cardiology Consultation Date of Consultation 11/11/17 Date of Admission Time Seen by Provider: 09:29 Indication: Chest pain HPI 77 years old gentleman with history of coronary artery disease, paroxysmal atrial fibrillation, sick sinus syndrome and permanent pacemaker. Was in his usual state of health until yesterday when he started having some chest discomfort and heartburn described it as dull achiness in the retrosternal area. Took some nitroglycerin and Tums and felt slightly better but did not resolved fully. This morning had another episode of chest pain which became worse. Came into the emergency room and relieved after nitroglycerin. He is currently feeling better, no active pain was reported, no shortness of breath. No palpitation but he felt slightly irregular heartbeat. No syncope or near syncopal episodes. No claudication Home Medications & Allergies Allergies: Coded Allergies: amiodarone (Unverified Allergy, Unknown, 06/12/17) ciprofloxacin (Verified Adverse Reaction, Mild, HALLUCINATIONS, 02/28/17) clonidine (Verified Adverse Reaction, Mild, HALLUCINATIONS, 02/28/17) Home Medication List Reviewed: Yes CSM-[id number]-Gfzprx Hx Patient Social History Marital Status: Employed/Student: retired Alcohol Use: Denies Use Recreational Drug Use: No Smoking Status: Former Smoker Former smoker/When Quit: Apr 21, 1980 Type Used: Cigarettes 2nd Hand Smoke Exposure: No Recent Foreign Travel: No Recent Infectious Disease Expo: No Recent Hopitalizations: No Immunizations Up To Date Tetanus Booster (TDap): Unknown Date of Pneumonia Vaccine: Jun 12, 2013 Date of Influenza Vaccine: Apr 12, 2017 Past Medical History Discussed below Family Medical History Significant Family History: Cancer, Hypertension Family History: Cardiovascular disease 19 FATHER, Diabetes mellitus G8 SISTER Constitutional: no symptoms reported, see HPI EENTM: see HPI, no symptoms reported Respiratory: see HPI; No cough; dyspnea on exertion; No hemoptysis, No orthopnea, No phlegm, No short of breath, No stridor, No wheezing, No other Cardiovascular: see HPI, chest pain, edema; No Hx of Intervention, No palpitations, No syncope, No vascular heart diseas, No other Gastrointestinal: see HPI, abdominal pain, heartburn Genitourinary: no symptoms reported, see HPI Musculoskeletal: see HPI, joint pain, muscle pain Skin: no symptoms reported, see HPI Psychiatric/Neurological: No Symptoms Reported, See HPI Reviewed Test Results Reviewed Test Results Lab Laboratory Tests Test 11/11/17 06:46 Range/Units White Blood Count 4.3 4.3-11.0 10^3/uL Red Blood Count 4.44 4.35-5.85 10^6/uL Hemoglobin 13.7 13.3-17.7 G/DL Hematocrit 41 40-54 % Mean Corpuscular Volume 91 80-99 FL Mean Corpuscular Hemoglobin 31 25-34 PG Mean Corpuscular Hemoglobin Concent 34 32-36 G/DL Red Cell Distribution Width 14.5 10.0-14.5 % Platelet Count 156 130-400 10^3/uL Mean Platelet Volume 12.1 H 7.4-10.4 FL Neutrophils (%) (Auto) 41 L 42-75 % Lymphocytes (%) (Auto) 40 12-44 % Monocytes (%) (Auto) 17 H 0-12 % Eosinophils (%) (Auto) 3 0-10 % Basophils (%) (Auto) 0 0-10 % Neutrophils # (Auto) 1.8 1.8-7.8 X 10^3 Lymphocytes # (Auto) 1.7 1.0-4.0 X 10^3 Monocytes # (Auto) 0.7 0.0-1.0 X 10^3 Eosinophils # (Auto) 0.1 0.0-0.3 10^3/uL Basophils # (Auto) 0.0 0.0-0.1 10^3/uL Prothrombin Time 15.6 H 12.2-14.7 SEC INR Comment 1.2 0.8-1.4 Sodium Level 141 135-145 MMOL/L Potassium Level 3.8 3.6-5.0 MMOL/L Chloride Level 109 H 98-107 MMOL/L Carbon Dioxide Level 21 21-32 MMOL/L Anion Gap 11 5-14 MMOL/L Blood Urea Nitrogen 11 7-18 MG/DL Creatinine 0.82 0.60-1.30 MG/DL Estimat Glomerular Filtration Rate > 60 BUN/Creatinine Ratio 13 Glucose Level 153 H 70-105 MG/DL Calcium Level 9.6 8.5-10.1 MG/DL Total Bilirubin 0.8 0.1-1.0 MG/DL Aspartate Amino Transf (AST/SGOT) 18 5-34 U/L Alanine Aminotransferase (ALT/SGPT) 14 0-55 U/L Alkaline Phosphatase 38 L 40-136 U/L Troponin I < 0.30 <0.30 NG/ML Total Protein 6.6 6.4-8.2 GM/DL Albumin 4.1 3.2-4.5 GM/DL Physical Exam Vital Signs Vital Signs - First Documented Capillary Refill : Less Than 3 Seconds General Appearance: No Apparent Distress, WD/WN Eyes: Bilateral Eye Normal Inspection, Bilateral Eye PERRL, Bilateral Eye EOMI HEENT: PERRL/EOMI, TMs Normal, Normal ENT Inspection, Pharynx Normal Neck: Full Range of Motion, Normal Inspection, Non Tender, Supple, Carotid Bruit Respiratory: Chest Non Tender, Lungs Clear, Normal Breath Sounds, No Accessory Muscle Use, No Respiratory Distress Cardiovascular: No Edema, No Gallop, No JVD, Normal Peripheral Pulses, Systolic Murmur, Irregularly Irregular Gastrointestinal: Normal Bowel Sounds, No Organomegaly, No Pulsatile Mass, Non Tender, Soft Back: Normal Inspection, No CVA Tenderness, No Vertebral Tenderness Extremity: Normal Capillary Refill, Normal Inspection, Normal Range of Motion, Non Tender, No Calf Tenderness, No Pedal Edema Neurologic/Psychiatric: Alert, Oriented x3, No Motor/Sensory Deficits, Normal Mood/Affect Skin: Normal Color, Warm/Dry Lymphatic: No Adenopathy A/P-Cardiology Admission Diagnosis Chest pain nonspecific etiology Paroxysmal atrial fibrillation Coronary artery disease Hypertension Assessment/Plan Chest pain nonspecific etiology, better at this time, currently chest pain-free , nondiagnostic EKG changes. 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 Permanent pacemaker secondary to. Maintained on Eliquis, I will use lovenox for now Coronary artery disease history of CABG done in 2007 using PAGE to LAD, VG to OM , VG to distal circ, last cardiac catheter done in September 2013 showing severe [place] coronary artery disease, a tent VG to diagonal, VG to OM 2 filling retrograde the circumflex system, patent PAGE to LAD and patent Promus 3.515 stent in the mid RCA that was placed in 2010 that has jailed a small right ventricular branch but still open branch. Last stress test was done in February 2017 showing no significant ischemia or infarction Gastroesophageal reflux disease, Gastric ulceration, history of recurrent heartburn. 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 Perioperative transient ischemic attack following coronary artery bypass surgery , with no subsequent recurrence. Hyperlipidemia, continue to monitor lipid Glucose intolerance being followed by Dr. Shetty. Intolerance to statin therapy, which limits therapy for hyperlipidemia. He is currently willing to try Crestor Mild to mod carotid arterial disease per bilateral carotid ultrasound of 07/18/14 History of urolithiasis being managed by Dr. Hewitt. H/o prostate cancer treated with seed implants in August 2014 Granulomatous residual without acute abnormality on CT chest carried out by Dr Shetty on 11/21/13 H/o sleep apnea, h/o noncompliance with therapy, followed by Dr Trejo Clinical Quality Measures AMI/AHF: ASA po Prior to arrival: JUAN J Maguire MD November 11, 2017 09:27
[2017-11-11] MEDS: ASPIRIN E.C. 81 MG (ECOTRIN) TAB PO SCH (09:54)
[2017-11-11] MEDS: ENOXAPARIN 300 MG/3 ML (LOVENOX) MULTI-DOSE VIAL SQ SCH ×2 (10:24→22:35)
[2017-11-11] MEDS ORDERED: OXYB10TA PO (10:52)
[2017-11-11] MEDS ORDERED: OMEP20CA12 PO (10:54)
[2017-11-11] MEDS ORDERED: AMLO5TAB2 PO (10:54)
[2017-11-11 12:00] VITALS: BP 130/65
[2017-11-11] MEDS ORDERED: FUROSEMIDE 20 MG (LASIX) TAB PO PRN (12:15)
--- NOTE | 2017-11-11 12:20 | History & Physical-Hospitalist ---
History of Present Illness HPI/Chief Complaint This is a 77-year-old white male followed by Dr. Tobias, a history of coronary artery disease and bypass grafting in the past. He has been having over the last 6 months increased angina with playing golf and walking and occasionally with carrying things. He notes that Dr. Tobias has been well aware of that. Most often his chest discomfort has gone away when he sat down and rested. Yesterday he began having chest pain at rest. He did not have any nausea vomiting or diaphoresis. He does describe this as being similar to his chest pain from the past. He has had to take nitroglycerin part off and on in the last 6 months. Last night he began having chest discomfort without radiation he took 2 nitroglycerin with only marginal relief and then took 2 Tums. He went to sleep and awakened this morning with continued chest discomfort. He took 1 more nitroglycerin without relief this a.m. and then presented to the emergency room. At the time of my interview he has currently with just minimal discomfort. Source: patient, old records Exam Limitations: no limitations Date Seen 11/11/17 Time Seen by Provider: 11:00 Attending Physician Ashutosh Groves MD PCP Ryan Shetty MD Referring Physician Date of Admission November 11, 2017 at 08:00 Home Medications & Allergies Home Medications Reviewed patient Home Medication Reconciliation performed by pharmacy medication reconciliations distribution technician and/or nursing. Patients Allergies have been reviewed. Allergies Allergies Coded Allergies amiodarone (Unverified Allergy, Unknown, 06/12/17) ciprofloxacin (Verified Adverse Reaction, Mild, HALLUCINATIONS, 02/28/17) clonidine (Verified Adverse Reaction, Mild, HALLUCINATIONS, 02/28/17) Past Oapgkxm-Dqnaml-Nrjrco Hx Past Med/Social Hx: Reviewed Nursing Past Med/Soc Hx Patient Social History Marrital Status: Employed/Student: retired Alcohol Use: Denies Use Recreational Drug Use: No Smoking Status: Former Smoker Former Smoker, Quit: Jun 12, 1978 Type Used: Cigarettes 2nd Hand Smoke Exposure: No Physical Abuse Screen: No Sexual Abuse: No Recent Foreign Travel: No Contact w/other who traveled: No Recent Hopitalizations: No Recent Infectious Disease Expo: No Immunizations Up To Date Tetanus Booster (TDap): Unknown Pediatric: No Date of Pneumonia Vaccine: Mar 29, 2017 Date of Influenza Vaccine: Apr 12, 2017 Seasonal Allergies Seasonal Allergies: Yes Past Medical History Surgeries: Cardiac, CABG, Coronary Stent, Eye Surgery, Gallbladder, Pacemaker, Renal Respiratory: Sleep Apnea Currently Using CPAP: Yes Currently Using BIPAP: No Cardiac: Angina, Atrial Fibrillation, Chronic Edema/Swelling, Coronary Artery Disease, High Cholesterol, Hypertension Neurological: TIA Reproductive: No Sexually Transmitted Disease: No HIV/AIDS: No Genitourinary: Kidney Infection, Prostate Problems, Bladder Infection, Kidney Stones Gastrointestinal: Gastroesophageal Reflux, Chronic Constipation, Polyps Musculoskeletal: Arthritis Endocrine: Diabetes, Non-Insulin dep HEENT: Cataract Loss of Vision: Denies Hearing Impairment: Hard of Hearing Cancer: Prostate Did You Recieve Any Treatments: Yes What Type of Treatment Did You: Radiation History of Blood Disorders: No Family History Cardiovascular disease 19 FATHER, Diabetes mellitus G8 SISTER Cancer, Hypertension Review of Systems Constitutional: see HPI EENTM: no symptoms reported Respiratory: short of breath Gastrointestinal: heartburn Genitourinary: frequency, incontinence (urge) Musculoskeletal: no symptoms reported Skin: no symptoms reported Psychiatric/Neurological: No Symptoms Reported Physical Exam Physical Exam Vital Signs Vital Signs - First Documented Capillary Refill : Less Than 3 SecondsLess Than 3 Seconds General Appearance: No Apparent Distress, WD/WN, Obese HEENT: Normal ENT Inspection Neck: Normal Inspection, Non Tender, Supple Respiratory: Chest Non Tender, Lungs Clear, Normal Breath Sounds, No Accessory Muscle Use, No Respiratory Distress Cardiovascular: Regular Rate, Rhythm, Systolic Murmur Gastrointestinal: Normal Bowel Sounds, No Pulsatile Mass, Non Tender, Soft Rectal: Deferred Back: Normal Inspection Extremity: Non Tender, No Calf Tenderness, No Pedal Edema Neurologic/Psychiatric: Alert, Oriented x3, Normal Mood/Affect Skin: Normal Color, Warm/Dry Lymphatic: No Adenopathy Results Results/Procedures Labs Laboratory Tests 11/11/17 06:46 Patient resulted labs reviewed. Assessment/Plan Admission Diagnosis Accelerated angina Admission Status: Observation Assessment and Plan 1. Chest pain etiology to be determined currently pain-free. 2. Stable angina with currently accelerated angina 3. Coronary artery disease status post bypass grafting and stent placement. 4. History of atrial fibrillation. And pacemaker placement. 5. Reflux. 6. Obstructive sleep apnea followed by Dr. Trejo. Plan for continued observation and rule out myocardial infarction consult cardiology and disposition based on what cardiology findings. Clinical Quality Measures AMI/AHF: ASA po Prior to arrival: No DVT/VTE Risk/Contraindication: Risk Factor Score Per Nursin RFS Level Per Nursing on Admit: 4+=Very High Copy Copies To 1: RYAN SHETTY MD, KATHLEEN M MD November 11, 2017 12:20
[2017-11-11] MEDS: amLODIPine 5 MG (NORVASC) TAB PO SCH (13:19)
[2017-11-11] MEDS: LOSARTAN 100 MG (COZAAR) TABLET PO SCH (13:19)
[2017-11-11] MEDS: PANTOPRAZOLE 20 MG TABLET (PROTONIX) PO SCH (13:20)
[2017-11-11] MEDS: OXYBUTYNIN (DITROPAN) 5 MG TAB PO SCH (13:20)
[2017-11-11] MEDS: doxAzosin 2 MG (CARDURA) TAB PO SCH ×2 (13:20→22:36)
[2017-11-11 16:29] VITALS: BP 124/60
[2017-11-11 19:20] VITALS: BP 136/62
[2017-11-11] MEDS ORDERED: APIXABAN 5 MG (ELIQUIS) TABLET PO SCH (21:00)
[2017-11-11] MEDS: SIMvastatin 10 MG (ZOCOR) TAB PO SCH (22:36)
[2017-11-12 00:55] VITALS: BP 121/73
[2017-11-12] MEDS: NS IV 1000 ML 1,000 ML IV SCH (03:54)
[2017-11-12 04:40] VITALS: BP 154/79
[2017-11-12 06:00] LABS: BASOPHILS % (AUTO) 0 % (0-10); EOSINOPHILS # (AUTO) 0.1 10^3/uL (0.0-0.3); EOSINOPHILS % (AUTO) 2 % (0-10); HEMATOCRIT 39 % (40-54); HEMOGLOBIN 13.3 G/DL (13.3-17.7); LYMPHOCYTES # (AUTO) 1.5 X 10^3 (1.0-4.0); LYMPHOCYTES % (AUTO) 30 % (12-44); MEAN CORPUSCULAR HEMOGLOBIN 31 PG (25-34); MEAN CORPUSCULAR HGB CONC 34 G/DL (32-36); MEAN CORPUSCULAR VOLUME 91 FL (80-99); MEAN PLATELET VOLUME 11.1 FL (7.4-10.4); MONOCYTES # (AUTO) 0.9 X 10^3 (0.0-1.0); MONOCYTES % (AUTO) 18 % (0-12); NEUTROPHILS # (AUTO) 2.5 X 10^3 (1.8-7.8); NEUTROPHILS % (AUTO) 50 % (42-75); PLATELET COUNT 150 10^3/uL (130-400); RED BLOOD COUNT 4.33 10^6/uL (4.35-5.85); RED CELL DISTRIBUTION WIDTH 14.7 % (10.0-14.5)
[2017-11-12 06:22] LABS: ALANINE AMINOTRANSFERASE 14 U/L (0-55); ALBUMIN 3.7 GM/DL (3.2-4.5); ALKALINE PHOSPHATASE 32 U/L (40-136); BILIRUBIN,TOTAL 0.9 MG/DL (0.1-1.0); BUN/CREATININE RATIO 14; CALCIUM 8.7 MG/DL (8.5-10.1); CARBON DIOXIDE 19 MMOL/L (21-32); CHLORIDE 111 MMOL/L (98-107); CREATININE SERUM 0.78 MG/DL (0.60-1.30); GFR ESTIMATED > 60; GLUCOSE 120 MG/DL (70-105); POTASSIUM 3.9 MMOL/L (3.6-5.0); SODIUM 140 MMOL/L (135-145); TOTAL PROTEIN 5.9 GM/DL (6.4-8.2)
[2017-11-12 07:54] VITALS: BP 126/74
[2017-11-12] MEDS: PANTOPRAZOLE 20 MG TABLET (PROTONIX) PO SCH (08:34)
[2017-11-12] MEDS: OXYBUTYNIN (DITROPAN) 5 MG TAB PO SCH (08:34)
[2017-11-12] MEDS: LOSARTAN 100 MG (COZAAR) TABLET PO SCH (08:34)
[2017-11-12] MEDS: ASPIRIN E.C. 81 MG (ECOTRIN) TAB PO SCH (08:34)
[2017-11-12] MEDS: doxAzosin 2 MG (CARDURA) TAB PO SCH ×2 (08:34→20:54)
[2017-11-12] MEDS: amLODIPine 5 MG (NORVASC) TAB PO SCH (08:34)
--- NOTE | 2017-11-12 10:56 | Cardiology Progress Note ---
Subjective Date Seen by Provider: November 12, 2017 Time Seen by Provider: 10:54 Subjective/Events-last exam Patient is sitting in a chair, feeling better, had another episode of chest pain after walking to the bathroom. Cardiac enzymes were negative. Review of Systems General: No Chills, No Night Sweats, No Fatigue, No Malaise, No Appetite, No Other HEENT: No Head Aches, No Visual Changes, No Eye Pain, No Ear Pain, No Dysphasia , No Sinus Congestion, No Post Nasal Drip, No Sore Throat, No Other Pulmonary: No Dyspnea, No Cough, No Pleuritic Chest Pain, No Other Cardiovascular: Chest Pain; No: Palpitations, Orthopnea, Paroxysmal Noc. Dyspnea, Edema, Lt Headedness, Other Objective-Cardiology Exam Last Set of Vital Signs Vital Signs 11/12/17 11/12/17 07:54 09:00 Temp 98.3 Pulse 67 Resp 16 B/P (MAP) 126/74 (91) Pulse Ox 96 O2 Delivery Room Air Capillary Refill : Less Than 3 SecondsLess Than 3 Seconds I&O Intake and Output 11/12/17 00:00 Intake Total 2400 ml Output Total 2300 ml Balance 100 ml Intake Oral 1400 ml IV Total 1000 ml Output Urine Total 2300 ml Daily Weight Change No General: Alert, Oriented X3, Cooperative HEENT: Atraumatic, PERRLA Neck: Supple, No JVD, No Thyromegaly Lungs: Clear to Auscultation, Normal Air Movement Heart: Normal S1, Normal S2, No Murmurs, Other (Atrial fibrillation) Abdomen: Normal Bowel Sounds, Soft, No Tenderness, No Hepatosplenomegaly, No Masses Extremities: No Clubbing, No Cyanosis, No Edema, Normal Pulses, No Tenderness/ Swelling Skin: No Rashes, No Breakdown, No Significant Lesion Neuro: Normal Gait, Normal Speech, Strength at 5/5 X4 Ext, Normal Tone, Sensation Intact Psych/Mental Status: Mental Status NL, Mood NL Results Lab Laboratory Tests 11/12/17 05:40 A/P-Cardiology Admission Diagnosis Chest pain nonspecific etiology Paroxysmal atrial fibrillation Coronary artery disease Hypertension Assessment/Plan Chest pain, accelerating angina, had another episode of chest pain with walking to the bathroom this morning. 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 Permanent pacemaker secondary to. Maintained on Eliquis, currently off Eliquis since admission Coronary artery disease history of CABG done in 2007 using PAGE to LAD, VG to OM , VG to distal circ, last cardiac catheter done in September 2013 showing severe [place] coronary artery disease, a tent VG to diagonal, VG to OM 2 filling retrograde the circumflex system, patent PAGE to LAD and patent Promus [id number] stent in the mid RCA that was placed in 2010 that has jailed a small right ventricular branch but still open branch. Last stress test was done in February 2017 showing no significant ischemia or infarction, planning for cardiac catheterization tomorrow Gastroesophageal reflux disease, Gastric ulceration, history of recurrent heartburn. 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 Perioperative transient ischemic attack following coronary artery bypass surgery , with no subsequent recurrence. Hyperlipidemia, continue to monitor lipid Glucose intolerance being followed by Dr. Shetty. Intolerance to statin therapy, which limits therapy for hyperlipidemia. He is currently willing to try Crestor Mild to mod carotid arterial disease per bilateral carotid ultrasound of 07/18/14 History of urolithiasis being managed by Dr. Hewitt. H/o prostate cancer treated with seed implants in August 2014 Granulomatous residual without acute abnormality on CT chest carried out by Dr Shetty on 11/21/13 H/o sleep apnea, h/o noncompliance with therapy, followed by Dr Trejo Clinical Quality Measures AMI/AHF: ASA po Prior to arrival: No DVT/VTE Risk/Contraindication: Risk Factor Score Per Nursin RFS Level Per Nursing on Admit: 4+=Very High JUAN J ALEMAN MD November 12, 2017 10:56
[2017-11-12] MEDS: ENOXAPARIN 300 MG/3 ML (LOVENOX) MULTI-DOSE VIAL SQ SCH ×2 (11:00→20:54)
[2017-11-12 12:34] VITALS: BP 130/64
--- NOTE | 2017-11-12 12:50 | Progress Note-Hospitalist ---
Subjective HPI/CC On Admission Date Seen by Provider: November 12, 2017 Time Seen by Provider: 12:30 This is a 77-year-old white male followed by Dr. Tobias, a history of coronary artery disease and bypass grafting in the past. He has been having over the last 6 months increased angina with playing golf and walking and occasionally with carrying things. He notes that Dr. Tobias has been well aware of that. Most often his chest discomfort has gone away when he sat down and rested. Yesterday he began having chest pain at rest. He did not have any nausea vomiting or diaphoresis. He does describe this as being similar to his chest pain from the past. He has had to take nitroglycerin part off and on in the last 6 months. Last night he began having chest discomfort without radiation he took 2 nitroglycerin with only marginal relief and then took 2 Tums. He went to sleep and awakened this morning with continued chest discomfort. He took 1 more nitroglycerin without relief this a.m. and then presented to the emergency room. At the time of my interview he has currently with just minimal discomfort. Subjective/Events-last exam Patient had chest pain with just walking to the bathroom this morning. This case was discussed with Dr. Topete and it's been determined that we'll hold him overnight for cardiac catheter in the morning by Dr. Tobias. Was noted his blood sugar was elevated and I'll get a hemoglobin A1c tomorrow morning. Review of Systems Cardiovascular: Chest Pain Objective Exam Vital Signs Vital Signs Date Time Temp Pulse Resp B/P (MAP) Pulse Ox O2 Delivery O2 Flow Rate FiO2 11/12/17 12:34 98.0 69 18 130/64 (86) 97 Room Air Capillary Refill : Less Than 3 SecondsLess Than 3 Seconds General Appearance: No Apparent Distress, WD/WN HEENT: Normal ENT Inspection Neck: Full Range of Motion, Non Tender, Supple Respiratory: Lungs Clear, Normal Breath Sounds, No Accessory Muscle Use, No Respiratory Distress Cardiovascular: Regular Rate, Rhythm, No Gallop, No Murmur Gastrointestinal: Normal Bowel Sounds, Non Tender, Soft Rectal: Deferred Back: Normal Inspection, No CVA Tenderness Extremity: Normal Inspection Neurologic/Psychiatric: Alert, Oriented x3, No Motor/Sensory Deficits, Normal Mood/Affect Skin: Normal Color, Warm/Dry Lymphatic: No Adenopathy Results/Procedures Lab Laboratory Tests 11/12/17 05:40 Patient resulted labs reviewed. Assessment/Plan Assessment and Plan Assess & Plan/Chief Complaint 1. Chest pain etiology to be determined currently pain-free. 2. accelerated angina 3. Coronary artery disease status post bypass grafting and stent placement- heart catheter in the morning 4. History of atrial fibrillation. And pacemaker placement. 5. Reflux. 6. Obstructive sleep apnea followed by Dr. Trejo. 7. Elevated blood sugar we'll check a hemoglobin A1c Plan for continued observation and rule out myocardial infarction consult cardiology and disposition based on what cardiology findings. Clinical Quality Measures AMI/AHF: ASA po Prior to arrival: No DVT/VTE Risk/Contraindication: Risk Factor Score Per Nursin RFS Level Per Nursing on Admit: 4+=Very High BRANDI LEÓN MD November 12, 2017 12:50
[2017-11-12 16:00] VITALS: BP 130/90
[2017-11-12 20:00] VITALS: BP 142/84
[2017-11-12] MEDS: SIMvastatin 10 MG (ZOCOR) TAB PO SCH (20:54)
[2017-11-13] VITALS (13 sets, daily range): BP systolic 122–162; BP diastolic 64–94
[2017-11-13 07:03] LABS: HEMOGLOBIN 14.6 G/DL (13.3-17.7); RED BLOOD COUNT 4.71 10^6/uL (4.35-5.85); RED CELL DISTRIBUTION WIDTH 14.8 % (10.0-14.5); WHITE BLOOD COUNT 4.8 10^3/uL (4.3-11.0)
[2017-11-13 07:25] LABS: BUN/CREATININE RATIO 10; CALCIUM 9.2 MG/DL (8.5-10.1); CARBON DIOXIDE 19 MMOL/L (21-32); CHLORIDE 110 MMOL/L (98-107); CREATININE SERUM 0.78 MG/DL (0.60-1.30); GFR ESTIMATED > 60; GLUCOSE 118 MG/DL (70-105); POTASSIUM 3.7 MMOL/L (3.6-5.0); SODIUM 141 MMOL/L (135-145)
--- NOTE | 2017-11-13 08:34 | Progress Note-Cardiology ---
Cardiology SOAP Progress Note Subjective: Notes cp with small amt of exertion, relieved with rest Chronic mod exertional shortness of breath and a feeling of fatigue No palp or syncope Objective: I&O/Vital Signs 11/13/17 11/13/17 11/13/17 11/13/17 00:27 01:00 03:29 07:01 Temp 97.9 97.6 Pulse 72 82 61 77 Resp 16 16 B/P (MAP) 129/73 (91) 122/82 (95) Pulse Ox 98 97 O2 Delivery Room Air Room Air 11/13/17 07:57 Temp 97.5 Pulse 68 Resp 16 B/P (MAP) 146/70 (95) Pulse Ox 96 O2 Delivery Room Air 11/13/17 00:00 Intake Total 2310 ml Output Total 3425 ml Balance -1115 ml Weight (Pounds): 249 Weight (Ounces): 8.0 Weight (Calculated Kilograms): [id number] Constitutional: AAO x 3, well-developed, well-nourished Respiratory: No accessory muscle use; lungs clear to percussion, lungs clear to auscultation Cardiovascular: irregularly irregular, S1 and S2, systolic murmur (2/6 MSM at card base) Gastrointestional: No tender; soft; No guarding, No rebound; audible bowel sounds Extremities: No clubbing, No cyanosis, No significant edema Neurologic/Psychiatric: oriented x 3, grossly intact, power is 5/5 both on sides Skin: No rash on exposed areas, No ulcerations on exposed areas Results/Procedures: Labs Laboratory Tests 11/13/17 06:40: White Blood Count 4.8, Red Blood Count 4.71, Hemoglobin 14.6, Hematocrit 42, Mean Corpuscular Volume 90, Mean Corpuscular Hemoglobin 31, Mean Corpuscular Hemoglobin Concent 34, Red Cell Distribution Width 14.8H, Platelet Count 146, Mean Platelet Volume 12.0H, Sodium Level 141, Potassium Level 3.7, Chloride Level 110H, Carbon Dioxide Level 19L, Anion Gap 12, Blood Urea Nitrogen 8, Creatinine 0.78, Estimat Glomerular Filtration Rate > 60, BUN/Creatinine Ratio 10, Glucose Level 118H, Calcium Level 9.2 Laboratory Tests 11/12/17 05:40 11/13/17 06:40 A/P: Assessment: Unstable angina Chronic fatigue, shortness of breath, and general malaise, likely mulifactorial (see below) ODETTE, treated with CPAP and followed by Dr Trejo H/o Lyme disease, managed by Dr Shetty SSS: PAF. Placed on amiodarone in May [address] Groves, for recurrent a fib. Amio stopped in early Apr 2016 for suspected amio toxicity. 3 runs of NSVT and 8 brief runs of NSVT/PAF on amulatory card monitoring of 04/03-04/10/17. 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 Symptoms are stable Severe hypertension-under fair control Coronary artery disease with coronary artery bypass surgery in August 2007 consisting of left internal mammary to left anterior descending, saphenous vein graft to first obtuse marginal, saphenous vein graft to distal left circumflex. Last cardiac cath of 10/08/13 showed severe [place] CAD including prox occclusion of LAD and severe prox disease of LCX including a very small caliber OM. There was widely patent SVG to diag and SVG to OM2 which also retrogradely supplies the distal LCX. There was widely patent PAGE to distal LAD, and widely patent Promus [id number] stent in prox to mid RCA (placed in September 2010). A small caliber RV branch is jailed in the stented areas of the RCA but is of too small a caliber for intervention. LVEF was 55-60% and LVEDP was mildly elevated MPI of 02/28/17 showed no significant ischemia or infarction on SPECT images. LVEF 58% Echocardiogram of 03/09/17 showed LVEF 60-65%, dilated LA, mild MR and TR, PASP 35-40 mmHg, grade I lazo dysfunction Diastolic dysfunction of the left ventricle, as indicated by moderate elevation of left ventricular end-diastolic pressure at the time of cardiac catheterization of August 2007, prior to coronary artery bypass surgery. Normal left ventricular end diastolic pressure per cardiac catheterization carried out in September 2010. Left anterior fascicular block. Perioperative transient ischemic attack following coronary artery bypass surgery , with no subsequent recurrence. Mild carotid arterial disease on carotid u/s of Jul 2016 Hyperlipidemia, being treated with niacin DM II Intolerance to statin therapy, which limits therapy for hyperlipidemia. Has failed multiple statins History of urolithiasis being managed by Dr. Hewitt. H/o prostate cancer treated with seed implants in August 2014 Gastric ulcerations with esophageal irritation, per endoscopy by Dr. Gerard in Jul 2013 Plan: * Given symptoms of unstable angina, card cath appears appropriate * I reviewed the rationale, procedure, risk, benefits, potential complications, and alternatives of card cath and possible ad hoc cor intervention with him and answered questions. He understands and provides informed consent * I discussed his case with Dr Groves Clinical Quality Measures AMI/AHF: ASA po Prior to arrival: MICHAEL Diaz MD FACP FAC CCDS November 13, 2017 08:34
[2017-11-13] MEDS ORDERED: LIDOCAINE 1% INJ 20 ML 20 ML VIAL ONE (09:25)
[2017-11-13] MEDS ORDERED: NS IV 1000 ML 3,000 ML ONE (09:25)
[2017-11-13] MEDS ORDERED: HEParin 1000 UNIT/ML (10ML VIAL) FOR BOLUS ONE (09:26)
--- NOTE | 2017-11-13 09:29 | Progress Note ---
Subjective Date Seen by Provider: November 13, 2017 Time Seen by Provider: 09:00 Subjective/Events-last exam PT REPORTS THAT HE IS HAVING CHEST PAIN WITH SIMPLE ACTIVITIES - HE REPORTS THAT WALKING 10 FEET FROM THE BED TO THE RESTROOM IN THE HOSPITAL HAS CAUSED HIM CHEST PAIN. HE REPORTS THAT THE CHEST PAIN SUDDENLY STARTED ON MONDAY MORNING AND PROGRESSIVELY WORSENED UNTIL HE WAS BROUGHT TO THE HOSPITAL AND FOUND TO HAVE ACCELERATING ANGINA. Review of Systems General: Fatigue, Malaise HEENT: No Head Aches Pulmonary: No Dyspnea, No Cough Cardiovascular: Chest Pain Gastrointestinal: No: Nausea Neurological: Weakness; No: Confusion Objective Exam Last Set of Vital Signs Vital Signs Date Time Temp Pulse Resp B/P (MAP) Pulse Ox O2 Delivery O2 Flow Rate FiO2 11/13/17 07:57 97.5 68 16 146/70 (95) 96 Room Air Capillary Refill : Less Than 3 SecondsLess Than 3 Seconds I&O Intake and Output 11/13/17 00:00 Intake Total 2410 ml Output Total 3800 ml Balance -1390 ml Intake Oral 2110 ml IV Total 300 ml Output Urine Total 3800 ml General: Alert, Oriented X3, Cooperative HEENT: Atraumatic, PERRLA Neck: Supple Lungs: Clear to Auscultation, Normal Air Movement Heart: Normal S1, Normal S2, Other (Atrial fibrillation) Abdomen: Normal Bowel Sounds, Soft Extremities: No Clubbing, No Cyanosis, No Edema, Normal Pulses Skin: No Rashes, No Breakdown, No Significant Lesion Neuro: Normal Gait, Normal Speech, Strength at 5/5 X4 Ext Psych/Mental Status: Mental Status NL, Mood NL Results Lab Laboratory Tests 11/13/17 06:40: White Blood Count 4.8, Red Blood Count 4.71, Hemoglobin 14.6, Hematocrit 42, Mean Corpuscular Volume 90, Mean Corpuscular Hemoglobin 31, Mean Corpuscular Hemoglobin Concent 34, Red Cell Distribution Width 14.8H, Platelet Count 146, Mean Platelet Volume 12.0H, Sodium Level 141, Potassium Level 3.7, Chloride Level 110H, Carbon Dioxide Level 19L, Anion Gap 12, Blood Urea Nitrogen 8, Creatinine 0.78, Estimat Glomerular Filtration Rate > 60, BUN/Creatinine Ratio 10, Glucose Level 118H, Calcium Level 9.2 Assessment/Plan Assessment/Plan Assess & Plan/Chief Complaint ACCELERATED ANGINA HYPERTENSION ATRIAL FIBRILLATION DIABETES MELLITUS HYPERLIPIDEMIA GERD URINARY URGENCY ACCELERATED ANGINA - DEFER TO DR. BAKER - HEART CATHETERIZATION TODAY. HYPERTENSION - RESUME HOME MEDICATIONS ATRIAL FIBRILLATION - RESUME HOME MEDICATIONS - DEFER TO DR. BAKER DIABETES MELLITUS - RESUME HOME MEDICATIONS HYPERLIPIDEMIA - RESUME HOME MEDICATIONS GERD - PEPCID URINARY URGENCY - CHRONIC - CONTINUE HOME MEDICATIONS. DEFER OVERALL STATUS TO DR. BAKER AND BASED ON HIS FINDINGS FROM HEART CATHETERIZATION TODAY. HE MAY BENEFIT FROM [facility] Clinical Quality Measures AMI/AHF: ASA po Prior to arrival: No DVT/VTE Risk/Contraindication: Risk Factor Score Per Nursin RFS Level Per Nursing on Admit: 4+=Very High RYAN LANDON MD November 13, 2017 09:29
[2017-11-13] MEDS: FINASTERIDE (PROSCAR) 5 MG TAB PO SCH ×2 (09:41→21:46)
[2017-11-13] MEDS: OXYBUTYNIN (DITROPAN) 5 MG TAB PO SCH (09:41)
[2017-11-13] MEDS: ASPIRIN E.C. 81 MG (ECOTRIN) TAB PO SCH (09:41)
[2017-11-13] MEDS: amLODIPine 5 MG (NORVASC) TAB PO SCH (09:41)
[2017-11-13] MEDS: LOSARTAN 100 MG (COZAAR) TABLET PO SCH (09:41)
[2017-11-13] MEDS: doxAzosin 2 MG (CARDURA) TAB PO SCH (09:41)
[2017-11-13] MEDS: PANTOPRAZOLE 20 MG TABLET (PROTONIX) PO SCH (09:42)
[2017-11-13] MEDS ORDERED: AMLO5TAB2 PO (09:43)
[2017-11-13] MEDS ORDERED: OXYB15TA PO (09:43)
[2017-11-13] MEDS ORDERED: METO100T12 PO (09:43)
[2017-11-13] MEDS ORDERED: OMEP20CA12 PO (09:43)
[2017-11-13] MEDS: ENOXAPARIN 300 MG/3 ML (LOVENOX) MULTI-DOSE VIAL SQ SCH (10:48)
[2017-11-13] MEDS ORDERED: fentaNYL INJECTION 100 MCG/2 ML AMP ONE (11:24)
[2017-11-13] MEDS ORDERED: MIDAZOLAM 5 MG/5 ML (VERSED) VIAL ONE (11:24)
[2017-11-13] MEDS ORDERED: diphenhydrAMINE 50 MG/ML INJ (BENADRYL) ONE (11:25)
[2017-11-13] MEDS ORDERED: NS IV 1000 ML 1,000 ML IV SCH ×2 (12:15→12:34)
[2017-11-13] MEDS ORDERED: meTOprolol TARTRATE 50 MG (LOPRESSOR) TAB PO NR (12:45)
[2017-11-13] MEDS ORDERED: PATIENT MAY USE OWN MEDS, ALL PO SCH (12:45)
[2017-11-13] MEDS ORDERED: doxAzosin 2 MG (CARDURA) TAB PO PRN (13:00)
--- OUTSIDE RECORDS SUMMARY | 2017-11-13 13:12 | XMS REPORT | Continuity of Care Document ---
Author Author [facility] Organization [facility] Address Unknown Phone Unavailable Allergies Active Description Code Type Severity Reaction Onset Reported/Identified Relationship to Patient Clinical Status Yes UNKNOWN ANTIBIOTIC UNKNOWN ANTIBIOTIC Mild N/A 09/06/2007 Yes No Known Drug Allergies [id number] Drug Allergy Unknown N/A 09/06/2007 Yes ciprofloxacin [id number] Drug Allergy Unknown HALLUCINATIONS 01/29/2016 Yes clonidine [id number] Drug Allergy Unknown HALLUCINATIONS 01/29/2016 Yes ciprofloxacin [id number] Drug Allergy Mild HALLUCINATIONS 02/28/2017 Yes clonidine [id number] Drug Allergy Mild HALLUCINATIONS 02/28/2017 Yes AMINODORONE AMINODORONE Unknown N/A 03/18/2017 Yes amiodarone [id number] Drug Allergy Unknown N/A 06/12/2017 Medications There is no data. Problems Date Dx Coded Attending Type Code Diagnosis Diagnosed By 05/25/1517 RYAN SHETTY MD Ot M54.5 LOW BACK PAIN 05/25/1517 RYAN SHETTY MD Ot R53.1 WEAKNESS 10/13/2010 Ot 271.3 DISACCHARIDASE DEF/MALAB 10/13/2010 Ot 272.4 HYPERLIPIDEMIA NEC/NOS 10/13/2010 Ot 413.9 ANGINA PECTORIS NEC/NOS 10/13/2010 Ot 414.01 CORONARY ATHEROSCLEROSIS OF [place] CORON 10/13/2010 Ot 424.0 MITRAL VALVE DISORDER [...] BROOKS MD Ot 788.1 DYSURIA 11/16/2012 RYAN SHETTY MD Ot 250.00 DIAB DAVID WO COMPL, TYPE II OR UNSPEC TY 11/16/2012 RYAN SHETTY MD Ot 272.0 PURE HYPERCHOLESTEROLEM 11/16/2012 RYAN SHETTY MD Ot 401.9 HYPERTENSION NOS 11/16/2012 RYAN SHETTY MD Ot 414.00 CORON ATHEROSCLER NOS TYPE VESSEL, NATIV 11/16/2012 RYAN SHETTY MD Ot 530.81 ESOPHAGEAL REFLUX 11/16/2012 RYAN SHETTY MD Ot 592.0 CALCULUS OF KIDNEY 11/16/2012 RYAN SHETTY MD Ot 782.3 EDEMA 11/16/2012 RYAN SHETTY MD Ot 786.59 CHEST PAIN NEC 11/16/2012 RYAN SHETTY MD Ot V15.82 HISTORY OF TOBACCO USE 11/16/2012 RYAN SHETTY MD Ot V45.81 AORTOCORONARY BYPASS 11/16/2012 RYAN SHETTY MD Ot V45.82 PERCUTANEOUS TRANSLUM CORON ANGIOPLASTY 11/23/2012 SAMUEL WOLF FACDaja, ALI FACP CCDS Ot 271.3 DISACCHARIDASE DEF/MALAB 11/23/2012 SAMUEL WOLF FACC, ALI FACP CCDS Ot 272.4 HYPERLIPIDEMIA NEC/NOS 11/23/2012 SAMUEL WOLF FACC, ALI FACP CCDS Ot 414.01 CORONARY ATHEROSCLEROSIS OF [place] CORON 11/23/2012 MICHAEL BAKER MD, FACC FACP [...] BAKER MD, FACC FACP CCDS Ot V58.69 [facility],LT,CURRENT USE 01/11/2013 RYAN SHETTY MD Ot 066.1 TICK-BORNE FEVER 01/11/2013 RYAN SHETTY MD Ot 250.00 DIAB DAVID WO COMPL, TYPE II OR UNSPEC TY 01/11/2013 RYAN SHETTY MD Ot 275.2 DIS MAGNESIUM METABOLISM 01/11/2013 RYAN SHETTY MD Ot 276.8 HYPOPOTASSEMIA 01/11/2013 RYAN SHETTY MD Ot 284.19 OTHER PANCYTOPENIA 01/11/2013 RYAN SHETTY MD Ot 287.5 THROMBOCYTOPENIA NOS 01/11/2013 RYAN SHETTY MD Ot 401.9 HYPERTENSION NOS 01/11/2013 RYAN SHETTY MD Ot 584.9 ACUTE RENAL FAILURE, UNSPECIFIED 01/11/2013 RYAN SHETTY MD Ot 780.60 FEVER, UNSPECIFIED 01/11/2013 RYAN SHETTY MD Ot 780.79 OTH MALAISE FATIGUE 01/11/2013 RYAN SHETTY MD Ot 787.91 DIARRHEA 07/09/2013 ANGELITA DUDLEY HUMAN RESOURCES COMPENSATION ANALYST Ot 785.1 PALPITATIONS 08/20/2013 EUGENIA SUTHERLAND JAVIER Marian Ot 531.90 STOMACH ULCER NOS 10/08/2013 SAMUEL WOLF FACC, ALI FACP CCDS Ot 271.3 DISACCHARIDASE DEF/MALAB 10/08/2013 SAMUEL WOLF FACC, ALI FACP CCDS Ot 272.4 HYPERLIPIDEMIA NEC/NOS 10/08/2013 SAMUEL WOLF FACC, ALI FACP CCDS Ot 278.00 OBESITY, NOS 10/08/2013 SAMUEL WOLF FACC, ALI FACP CCDS Ot 414.01 CORONARY ATHEROSCLEROSIS OF [place] CORON 10/08/2013 MICHAEL BAKER MD, FACC FACP [...] MASS INDEX 36.0-36.9, ADULT 02/07/2014 [place] AND[place] BUTTERMAKER Ot 682.6 CELLULITIS OF LEG 02/07/2014 [place] BUTTERMAKER Ot 916.5 INSECT BITE HIP/LEG-INF 02/07/2014 [place] AND[place] BUTTERMAKER Ot E906.4 NONVENOM ARTHROPOD BITE 04/23/2014 RYAN SHETTY MD Ot 250.00 DIAB DAVID WO COMPL, TYPE II OR UNSPEC TY 04/23/2014 RYAN SHETTY MD Ot 272.0 PURE HYPERCHOLESTEROLEM 04/23/2014 RYAN SHETTY MD Ot 276.51 DEHYDRATION 04/23/2014 RYAN SHETTY MD Ot 300.00 ANXIETY STATE NOS 04/23/2014 RYAN SHETTY MD Ot 311 DEPRESSIVE DISORDER NEC 04/23/2014 RYAN SHETTY MD Ot 389.9 HEARING LOSS NOS 04/23/2014 RYAN SHETTY MD Ot 401.9 HYPERTENSION NOS 04/23/2014 RYAN SHETTY MD Ot 412 OLD MYOCARDIAL INFARCT 04/23/2014 RYAN SHETTY MD Ot 414.01 CORONARY ATHEROSCLEROSIS OF [place] CORON 04/23/2014 RYAN SHETTY MD Ot 530.81 ESOPHAGEAL REFLUX 04/23/2014 RYAN SHETTY MD Ot 599.0 URIN TRACT INFECTION NOS 04/23/2014 RYAN SHETTY MD Ot 729.1 MYALGIA AND MYOSITIS NOS 04/23/2014 RYAN SHETTY MD Ot 780.57 UNSPECIFIED SLEEP APNEA 04/23/2014 RYAN SHETTY MD Ot 780.79 OTH MALAISE FATIGUE 04/23/2014 RYAN SHETTY MD Ot 782.3 EDEMA 04/23/2014 RYAN SHETTY MD Ot 790.95 ELEVATED C-REACTIVE PROTEIN (CRP) 04/23/2014 RYAN SHETTY MD Ot V12.54 PERSONAL HX OF TIA, CEREBRAL INFARCTION 04/23/2014 RYAN SHETTY MD Ot V13.01 PERSONAL HISTORY OF URINARY CALCULI 04/23/2014 RYAN SHETTY MD Ot V15.82 HISTORY OF TOBACCO USE 04/23/2014 RYAN SHETTY MD Ot V45.81 AORTOCORONARY BYPASS 09/18/2014 Ot [...] WOLF, RYAN Schreiber Ot 268.9 12/30/2014 RYAN SHETTY MD Ot 515 12/30/2014 RYAN SHETTY MD Ot 733.90 12/30/2014 RYAN SHETTY MD Ot 786.52 12/30/2014 RYAN SHETTY MD Ot V45.82 02/23/2015 TIN SOTO DO [...] 06/19/2015 JAVIER BELLO DO Ot V72.84 06/19/2015 BRABI WOLF, RYAN Schreiber Ot 268.9 06/19/2015 BARBI WOLF, RYAN Schreiber Ot 515 06/19/2015 BARBI WOLF, RYAN Schreiber Ot 733.90 06/19/2015 BARBI WOLF, RYAN Schreiber Ot 786.52 06/19/2015 RYAN SHETTY MD Ot V45.82 06/19/2015 Ot 185 06/19/2015 [...] K Ot I10 ESSENTIAL (PRIMARY) HYPERTENSION 06/19/2015 MUIR DO, MAGDALENA K Ot I25.10 ATHSCL HEART DISEASE OF [place] CORONARY 06/19/2015 MUIR DO, MAGDALENA Ang Ot 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 06/19/2015 SEBASTIEN DO, MAGDALENA Ang Ot I48.0 PAROXYSMAL ATRIAL FIBRILLATION 06/19/2015 MUIR DO, MAGDALENA Ang Ot R07.9 CHEST PAIN, UNSPECIFIED 06/20/2015 SEBASTIEN DO, MAGDALENA Ashia Ot E11.9 06/20/2015 SEBASTIEN DO, MAGDALENA Ang Ot E78.5 06/20/2015 SEBASTIEN DO, MAGDALENA Ang Ot I10 06/20/2015 MUIR DO, MAGDALENA Ang Ot I25.10 06/20/2015 [facility], MAGDALENA Ang Ot I44.4 06/20/2015 MUIR DO, MAGDALENA Ang Ot I48.0 06/20/2015 [facility], MAGDALENA Ang Ot R07.9 06/30/2015 CHETNA WOLF, [...] A Ot 786.52 08/19/2015 BARBI WOLF, RYAN Shcreiber Ot V45.82 08/19/2015 Ot 185 08/19/2015 Ot [...] Ot 515 POSTINFLAM PULM FIBROSIS 10/28/2015 RYAN SHETTY MD Ot 733.90 BONE CARTILAGE DIS NOS 10/28/2015 BARBI WOLF, RYAN Schreiber Ot 786.52 PAINFUL RESPIRATION 10/28/2015 RYAN SHETTY MD Ot V45.82 PERCUTANEOUS TRANSLUM CORON ANGIOPLASTY 10/28/2015 Ot 185 MALIGN NEOPL PROSTATE 10/28/2015 Ot 592.0 CALCULUS OF KIDNEY 10/28/2015 ANDREW NATION MD Ot 185 MALIGN NEOPL PROSTATE 10/28/2015 ANDREW NATION MD Ot V72.81 [id number] CARDIOVASCULAR 10/28/2015 ANDREW NATION MD Ot V74.8 SCREEN-BACTERIAL DIS NEC 10/28/2015 TIN SOOT DO Ot 414.00 CORON ATHEROSCLER NOS TYPE [...] Ot V72.84 EXAM PRE-OPERATIVE NOS 10/30/2015 RYAN SHETTY MD Ot 268.9 VITAMIN D DEFICIENCY NOS 10/30/2015 RYAN SHETTY MD Ot 515 POSTINFLAM PULM FIBROSIS 10/30/2015 RYAN SHETTY MD Ot 733.90 BONE CARTILAGE DIS NOS 10/30/2015 RYAN SHETTY MD Ot 786.52 PAINFUL RESPIRATION 10/30/2015 RYAN SHETTY MD Ot V45.82 PERCUTANEOUS TRANSLUM CORON ANGIOPLASTY 10/30/2015 Ot 185 MALIGN NEOPL PROSTATE 10/30/2015 Ot 592.0 CALCULUS OF KIDNEY 10/30/2015 ANDREW NATION MD Ot 185 MALIGN NEOPL PROSTATE 10/30/2015 ANDREW NATION MD Ot V72.81 [id number] CARDIOVASCULAR 10/30/2015 ANDREW NATION MD Ot V74.8 [...] CHAPIS WOLF, ANDREW Schreiber Ot Z79.899 OTHER AUTO INSPECTOR (CURRENT) DRUG THERAPY 11/04/2015 CHAPIS WOLF, ANDREW Schreiber Ot N20.0 CALCULUS OF KIDNEY 11/04/2015 CHAPIS WOLF, ANDREW Schreiber Ot Z79.899 OTHER AUTO INSPECTOR (CURRENT) DRUG THERAPY 11/17/2015 Ot 140.0 MAL [...] Ot V72.84 EXAM PRE-OPERATIVE NOS 11/17/2015 RYAN SHETTY MD Ot 268.9 VITAMIN D DEFICIENCY NOS 11/17/2015 RYAN SHETTY MD Ot 515 POSTINFLAM PULM FIBROSIS 11/17/2015 RYAN SHETTY MD Ot 733.90 BONE CARTILAGE DIS NOS 11/17/2015 BARBI WOLF, RYAN Schreiber Ot 786.52 PAINFUL RESPIRATION 11/17/2015 BARBI WOLF, RYAN Schreiber Ot V45.82 PERCUTANEOUS TRANSLUM CORON ANGIOPLASTY 11/17/2015 Ot 185 MALIGN NEOPL PROSTATE 11/17/2015 Ot 592.0 CALCULUS OF KIDNEY 11/17/2015 ANDREW NATION MD Ot 185 MALIGN NEOPL PROSTATE 11/17/2015 CHAPIS WOLF, ANDREW Schreiber Ot V72.81 [id number] CARDIOVASCULAR 11/17/2015 ANDREW NATION MD Ot V74.8 [...] RECTUM 01/29/2016 JEFF LOUIS MD Ot Z79.01 AUTO INSPECTOR (CURRENT) USE OF ANTICOAGULANT 02/01/2016 JEFF LOUIS [...] Ot 515 POSTINFLAM PULM FIBROSIS 03/24/2016 RYAN SHETTY MD Ot 733.90 BONE CARTILAGE DIS NOS 03/24/2016 BARBI WOLF, RYAN Schreiber Ot 786.52 PAINFUL RESPIRATION 03/24/2016 RYAN SHETTY MD Ot V45.82 PERCUTANEOUS TRANSLUM CORON ANGIOPLASTY 03/24/2016 Ot 185 MALIGN NEOPL PROSTATE 03/24/2016 Ot 592.0 CALCULUS OF KIDNEY 03/24/2016 ANDREW NATION MD Ot 185 MALIGN NEOPL PROSTATE 03/24/2016 ANDREW NATION MD Ot V72.81 [id number] CARDIOVASCULAR 03/24/2016 ANDREW NATION MD Ot V74.8 [...] Schreiber Ot I25.119 ATHSCL HEART DISEASE OF [place] COR ART W 04/26/2016 DAO SUTHERLANDRAFAL Ot [...] TYPE 2 DIABETES MELLITUS WITHOUT COMPLIC 04/27/2016 [facility] RAFAL Schreiber Ot E78.00 PURE HYPERCHOLESTEROLEMIA, UNSPECIFIED 04/27/2016 GELLENDER DO, RAFAL Schreiber Ot E78.5 HYPERLIPIDEMIA, UNSPECIFIED 04/27/[address] [facility], RAFAL Schreiber Ot G47.30 SLEEP APNEA, UNSPECIFIED 04/27/2016 [facility] RAFAL Schreiber Ot I10 ESSENTIAL (PRIMARY) HYPERTENSION 04/27/2016 [facility], RAFAL Schreiber Ot I25.119 ATHSCL HEART DISEASE OF [place] COR ART W 04/27/2016 [facility], RAFAL Schreiber Ot I48.91 UNSPECIFIED ATRIAL FIBRILLATION 04/27/2016 [facility] DO, RAFAL Schreiber Ot K29.80 DUODENITIS WITHOUT BLEEDING 04/27/2016 [facility], RAFAL Schreiber Ot N39.0 URINARY TRACT INFECTION, SITE NOT SPECIF 04/27/2016 [facility], RAFAL Schreiber Ot R50.9 FEVER, UNSPECIFIED 04/27/2016 [facility], RAFAL Schreiber Ot R53.1 WEAKNESS 04/27/2016 [facility], RAFAL Schreiber Ot R74.8 ABNORMAL LEVELS OF OTHER SERUM ENZYMES 04/27/2016 [facility], RAFAL Schreiber Ot T46.2X1A POISONING BY OTH ANTIDYSRHYTHMIC DRUGS, 04/27/2016 [facility] RAFAL Ot Z23 ENCOUNTER FOR IMMUNIZATION 04/27/2016 [facility], RAFAL Schreiber Ot Z79.84 AUTO INSPECTOR (CURRENT) USE OF ORAL HYPOGLYC 04/27/2016 [facility] Ot Z85.46 PERSONAL HISTORY OF MALIGNANT NEOPLASM O 04/27/2016 [facility] RAFAL Ot Z87.891 PERSONAL HISTORY OF NICOTINE DEPENDENCE 04/27/2016 [facility] Ot Z91.81 HISTORY OF FALLING 04/27/2016 [facility] Ot Z92.3 PERSONAL HISTORY OF IRRADIATION 04/27/2016 [facility], RAFAL Schreiber Ot Z95.1 PRESENCE OF AORTOCORONARY BYPASS GRAFT 04/27/2016 [facility] Ot Z95.5 PRESENCE OF CORONARY ANGIOPLASTY IMPLANT 04/27/2016 [facility], RAFAL Schreiber Ot D69.6 THROMBOCYTOPENIA, [...] Schreiber Ot I25.119 ATHSCL HEART DISEASE OF [place] COR ART W 04/27/2016 AMARISDER DO, RAFAL Schreiber Ot I48.91 UNSPECIFIED ATRIAL FIBRILLATION 04/27/2016 DAO DORAFAL Ot K29.80 DUODENITIS WITHOUT BLEEDING 04/27/2016 DAO SUTHERLANDRAFAL Ot N39.0 URINARY TRACT INFECTION, SITE NOT SPECIF 04/27/2016 DAO SUTHERLANDRAFAL Ot R50.9 FEVER, UNSPECIFIED 04/27/2016 AMARSIDER DORAFAL Ot R53.1 WEAKNESS 04/27/2016 DAO DORAFAL [...] Z92.3 PERSONAL HISTORY OF IRRADIATION 04/27/2016 [facility] Z95.1 PRESENCE OF AORTOCORONARY BYPASS [...] SUTHERLANDRAFAL Ot I25.119 ATHSCL HEART DISEASE OF [place] COR ART W 04/27/2016 [facility] Ot I48.91 UNSPECIFIED ATRIAL FIBRILLATION 04/27/2016 [facility] Ot K29.80 DUODENITIS WITHOUT BLEEDING 04/27/2016 DAO SUTHERLANDRAFAL Ot N39.0 URINARY TRACT INFECTION, SITE NOT SPECIF 04/27/2016 DAO SUTHERLANDRAFAL Ot R50.9 FEVER, UNSPECIFIED 04/27/2016 DAO SUTHERLANDRAFAL Ot R53.1 WEAKNESS 04/27/2016 DAO SUTHERLANDRAFAL Ot R74.8 ABNORMAL LEVELS OF OTHER SERUM ENZYMES 04/27/2016 DAO SUTHERLANDRAFAL Ot Z23 ENCOUNTER FOR IMMUNIZATION 04/27/2016 [facility] Ot Z79.84 SENIOR LIVING (CURRENT) USE OF ORAL HYPOGLYC 04/27/2016 [facility] Ot Z85.46 PERSONAL HISTORY OF MALIGNANT NEOPLASM O 04/27/2016 DAO SUTHERLANDRAFAL Ot Z87.891 PERSONAL HISTORY OF NICOTINE DEPENDENCE 04/27/2016 DAO SUTHERLANDRAFAL Ot Z91.81 HISTORY OF FALLING 04/27/2016 DAO SUTHERLANDRAFAL Ot Z92.3 PERSONAL HISTORY OF IRRADIATION 04/27/2016 [facility] Z95.1 PRESENCE OF AORTOCORONARY BYPASS GRAFT 04/27/2016 [facility] Ot Z95.5 PRESENCE OF CORONARY ANGIOPLASTY IMPLANT 04/29/2016 RYAN SHETTY MD Ot D69.6 THROMBOCYTOPENIA, UNSPECIFIED 04/29/2016 RYAN SHETTY MD Ot E11.9 TYPE 2 DIABETES MELLITUS WITHOUT COMPLIC 04/29/2016 RYAN SHETTY MD Ot E78.00 PURE HYPERCHOLESTEROLEMIA, UNSPECIFIED 04/29/2016 RYAN SHETTY MD Ot E78.5 HYPERLIPIDEMIA, UNSPECIFIED 04/29/2016 RYAN SHETTY MD Ot G47.30 SLEEP APNEA, UNSPECIFIED 04/29/2016 RYAN SHETTY MD, Ot I10 ESSENTIAL (PRIMARY) HYPERTENSION 04/29/2016 RYAN SHETTY MD Ot I25.119 ATHSCL HEART DISEASE OF [place] COR ART W 04/29/2016 RYAN SHETTY MD Ot I48.91 UNSPECIFIED ATRIAL FIBRILLATION 04/29/2016 RYAN SHETTY MD Ot K29.80 DUODENITIS WITHOUT BLEEDING 04/29/2016 RYAN SHETTY MD Ot R50.9 FEVER, UNSPECIFIED 04/29/2016 RYAN SHETTY MD Ot R53.1 WEAKNESS 04/29/2016 RYAN SHETTY MD Ot R74.8 ABNORMAL LEVELS OF OTHER SERUM ENZYMES 04/29/2016 RYAN SHETTY MD Ot T46.2X1D POISONING BY OTH ANTIDYSRHYTHMIC DRUGS, 04/29/2016 RYAN SHETTY MD Ot Z79.84 SENIOR LIVING (CURRENT) USE OF ORAL HYPOGLYC 04/29/2016 RYAN SHETTY MD Ot Z85.46 PERSONAL HISTORY OF MALIGNANT NEOPLASM O 04/29/2016 RYAN SHETTY MD Ot Z87.891 PERSONAL HISTORY OF NICOTINE DEPENDENCE 04/29/2016 RYAN SHETTY MD Ot Z91.81 HISTORY OF FALLING 04/29/2016 RYAN SHETTY MD Ot Z92.3 PERSONAL HISTORY OF IRRADIATION 04/29/2016 RYAN SHETTY MD Ot Z95.1 PRESENCE OF AORTOCORONARY BYPASS GRAFT 04/29/2016 RYAN SHETTY MD Ot Z95.5 PRESENCE OF CORONARY ANGIOPLASTY IMPLANT 05/02/2016 RYAN SHETTY MD Ot D69.6 THROMBOCYTOPENIA, UNSPECIFIED 05/02/2016 RYAN SHETTY MD Ot E11.9 TYPE 2 DIABETES MELLITUS WITHOUT COMPLIC 05/02/2016 RYAN SHETTY MD Ot E78.5 HYPERLIPIDEMIA, UNSPECIFIED 05/02/2016 RYAN SHETTY MD Ot G47.30 SLEEP APNEA, UNSPECIFIED 05/02/2016 RYAN SHETTY MD Ot I10 ESSENTIAL (PRIMARY) HYPERTENSION 05/02/2016 RYAN SHETTY MD Ot I25.119 ATHSCL HEART DISEASE OF [place] COR ART W 05/02/2016 RYAN SHETTY MD Ot 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 05/02/2016 RYAN SHETTY MD Ot I48.91 UNSPECIFIED ATRIAL FIBRILLATION 05/02/2016 RYAN SHETTY MD Ot I50.30 UNSPECIFIED DIASTOLIC (CONGESTIVE) HEART 05/02/2016 RYAN SHETTY MD Ot R06.09 OTHER FORMS OF DYSPNEA 05/02/2016 RYAN SHETTY MD Ot R14.0 ABDOMINAL DISTENSION (GASEOUS) 05/02/2016 RYAN SHETTY MD Ot R53.1 WEAKNESS 05/02/2016 RYAN SHETTY MD Ot R60.0 LOCALIZED EDEMA 05/02/2016 RYAN SHETTY MD Ot R74.8 ABNORMAL LEVELS OF OTHER SERUM ENZYMES 05/02/2016 RYAN SHETTY MD, Ot T46.2X1D POISONING BY OTH ANTIDYSRHYTHMIC DRUGS, 05/02/2016 RYAN SHETTY MD Ot Z79.84 AUTO INSPECTOR (CURRENT) USE OF ORAL HYPOGLYC 05/02/2016 RYAN SHETTY MD Ot Z85.46 PERSONAL HISTORY OF MALIGNANT NEOPLASM O 05/02/2016 RYAN SHETTY MD Ot Z87.891 PERSONAL HISTORY OF NICOTINE DEPENDENCE 05/02/2016 RYAN SHETTY MD Ot Z91.81 HISTORY OF FALLING 05/02/2016 RYAN SHETTY MD Ot Z92.3 PERSONAL HISTORY OF IRRADIATION 05/02/2016 RYAN SHETTY MD Ot Z95.1 PRESENCE OF AORTOCORONARY BYPASS GRAFT 05/02/2016 RYAN SHETTY MD Ot Z95.5 PRESENCE OF CORONARY ANGIOPLASTY [...] Schreiber Ot 786.52 PAINFUL RESPIRATION 07/14/2016 RYAN SHETTY MD Ot V45.82 PERCUTANEOUS TRANSLUM CORON ANGIOPLASTY 07/14/2016 Ot 185 MALIGN NEOPL PROSTATE 07/14/2016 Ot 592.0 CALCULUS OF KIDNEY 07/14/2016 ANDREW NATION MD Ot 185 MALIGN NEOPL PROSTATE 07/14/2016 ANDREW NATION MD Ot V72.81 [id number] CARDIOVASCULAR 07/14/2016 ANDREW NATION MD Ot V74.8 [...] Ot M54.5 LOW BACK PAIN 07/14/2016 RYAN SHETTY MD Ot R53.1 WEAKNESS 07/18/2016 RYAN SHETTY MD Ot M54.5 LOW BACK PAIN 07/18/2016 RYAN SHETTY MD Ot R53.1 WEAKNESS 02/22/2017 Ot 786.2 COUGH 02/22/2017 Ot 785.1 PALPITATIONS 02/22/2017 JAVIER BELLO DO Ot V72.84 EXAM PRE-OPERATIVE NOS 02/22/2017 RYAN SHETTY MD Ot 268.9 VITAMIN D DEFICIENCY NOS 02/22/2017 RYAN SHETTY MD Ot 515 POSTINFLAM PULM FIBROSIS 02/22/2017 RYAN SHETTY MD Ot 733.90 BONE CARTILAGE DIS NOS 02/22/2017 RYAN SHETTY MD Ot 786.52 PAINFUL RESPIRATION 02/22/2017 RYAN SHETTY MD Ot V45.82 PERCUTANEOUS TRANSLUM CORON ANGIOPLASTY 02/22/2017 Ot 185 MALIGN NEOPL PROSTATE 02/22/2017 Ot 592.0 CALCULUS OF KIDNEY 02/22/2017 ANDREW NATION MD Ot 185 MALIGN NEOPL PROSTATE 02/22/2017 ANDREW NATION MD Ot V72.81 [id number] CARDIOVASCULAR 02/22/2017 ANDREW NATION MD Ot V74.8 [...] MALIGNANT NEOPLASM OF PROSTATE 03/01/2017 SAMUEL WOLF [facility], ALI FACP CCDS Ot E66.09 OTHER OBESITY DUE TO EXCESS CALORIES 03/01/2017 SAMUEL WOLF FACC, ALI FACP CCDS Ot E78.4 OTHER HYPERLIPIDEMIA 03/01/2017 SAMUEL WOLF [facility], ALI FACP CCDS Ot I10 ESSENTIAL (PRIMARY) HYPERTENSION 03/01/2017 SAMUEL WOLF [facility], ALI FACP CCDS Ot I48.0 PAROXYSMAL ATRIAL FIBRILLATION 03/01/2017 SAMUEL WOLF [facility], ALI FACP CCDS Ot 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 03/01/2017 SAMUEL WOLF FACC, ALI FACP CCDS Ot R06.09 OTHER FORMS OF DYSPNEA 03/01/2017 SAMUEL WOLF FACC, ALI FACP CCDS Ot R53.83 OTHER FATIGUE 03/08/2017 Ot 786.2 COUGH 03/08/2017 Ot 785.1 PALPITATIONS 03/08/2017 JAVIER BELLO DO Ot V72.84 EXAM PRE-OPERATIVE NOS 03/08/2017 RYAN SHETTY MD Ot 268.9 VITAMIN D DEFICIENCY NOS 03/08/2017 RYAN SHETTY MD Ot 515 POSTINFLAM PULM FIBROSIS 03/08/2017 RYAN SHETTY MD Ot 733.90 BONE CARTILAGE DIS NOS 03/08/2017 RYAN SHETTY MD Ot 786.52 PAINFUL RESPIRATION 03/08/2017 RYAN SHETTY MD Ot V45.82 PERCUTANEOUS TRANSLUM CORON ANGIOPLASTY 03/08/2017 Ot 185 MALIGN NEOPL PROSTATE 03/08/2017 Ot 592.0 CALCULUS OF KIDNEY 03/08/2017 ANDREW NATION MD Ot 185 MALIGN NEOPL PROSTATE 03/08/2017 ANDREW NATION MD Ot V72.81 [id number] CARDIOVASCULAR 03/08/2017 ANDREW NATION MD Ot V74.8 [...] C61 MALIGNANT NEOPLASM OF PROSTATE 03/19/2017 RYAN SHETTY MD Ot E11.9 TYPE 2 DIABETES MELLITUS WITHOUT COMPLIC 03/19/2017 RYAN SHETTY MD Ot E78.5 HYPERLIPIDEMIA, UNSPECIFIED 03/19/2017 RYAN SHETTY MD Ot I10 ESSENTIAL (PRIMARY) HYPERTENSION 03/19/2017 RYAN SHETTY MD Ot I25.10 ATHSCL HEART DISEASE OF [place] CORONARY 03/19/2017 RYAN SHETTY MD Ot I48.2 CHRONIC ATRIAL FIBRILLATION 03/19/2017 RYAN SHETTY MD Ot I51.7 CARDIOMEGALY 03/19/2017 RYAN SHETTY MD Ot K21.9 GASTRO-ESOPHAGEAL REFLUX DISEASE WITHOUT 03/19/2017 RYAN SHETTY MD Ot N40.0 BENIGN PROSTATIC HYPERPLASIA WITHOUT LOW 03/19/2017 RYAN SHETTY MD Ot R07.9 CHEST PAIN, UNSPECIFIED 03/19/2017 RYAN SHETTY MD Ot Z79.01 SENIOR LIVING (CURRENT) USE OF ANTICOAGULANT 03/19/2017 RYAN SHETTY MD Ot Z79.899 OTHER SENIOR LIVING (CURRENT) DRUG THERAPY 03/19/2017 RYAN SHETTY MD, Ot Z85.46 PERSONAL HISTORY OF MALIGNANT NEOPLASM O 03/19/2017 RYAN SHETTY MD, Ot Z86.73 PRSNL HX OF TIA (TIA), AND CEREB INFRC W 03/19/2017 RYAN SHETTY MD, Ot Z87.891 PERSONAL HISTORY OF NICOTINE DEPENDENCE 03/19/2017 RYAN SHETTY MD Ot Z95.1 PRESENCE OF AORTOCORONARY BYPASS GRAFT 03/19/2017 RYAN SHETTY MD Ot Z95.5 PRESENCE OF CORONARY ANGIOPLASTY IMPLANT 03/19/2017 RYAN SHETTY MD Ot E11.9 TYPE 2 DIABETES MELLITUS WITHOUT COMPLIC 03/19/2017 RYAN SHETTY MD Ot E78.5 HYPERLIPIDEMIA, UNSPECIFIED 03/19/2017 RYAN SHETTY MD Ot I10 ESSENTIAL (PRIMARY) HYPERTENSION 03/19/2017 RYAN SHETTY MD, Ot I25.10 ATHSCL HEART DISEASE OF [place] CORONARY 03/19/2017 RYAN SHETTY MD Ot I48.2 CHRONIC ATRIAL FIBRILLATION 03/19/2017 RYAN SHETTY MD, Ot I51.7 CARDIOMEGALY 03/19/2017 RYAN SHETTY MD, Ot K21.9 GASTRO-ESOPHAGEAL REFLUX DISEASE WITHOUT 03/19/2017 RYAN SHETTY MD Ot N40.0 BENIGN PROSTATIC HYPERPLASIA WITHOUT LOW 03/19/2017 RYAN SHETTY MD Ot R07.9 CHEST PAIN, UNSPECIFIED 03/19/2017 RYAN SHETTY MD, Ot Z79.01 SENIOR LIVING (CURRENT) USE OF ANTICOAGULANT 03/19/2017 RYAN SHETTY MD, Ot Z79.899 OTHER AUTO INSPECTOR (CURRENT) DRUG THERAPY 03/19/2017 RYAN SHETTY MD, Ot Z85.46 PERSONAL HISTORY OF MALIGNANT NEOPLASM O 03/19/2017 RYAN SHETTY MD, Ot Z86.73 PRSNL HX OF TIA (TIA), AND CEREB INFRC W 03/19/2017 RYAN SHETTY MD, Ot Z87.891 PERSONAL HISTORY OF NICOTINE DEPENDENCE 03/19/2017 RYAN SHETTY MD Ot Z95.1 PRESENCE OF AORTOCORONARY BYPASS GRAFT 03/19/2017 RYAN SHETTY MD Ot Z95.5 PRESENCE OF CORONARY ANGIOPLASTY [...] STENOSIS OF BILATERAL LEE 03/30/2017 SAMUEL WOLF [facility], ALI FACP CCDS Ot R06.09 OTHER [...] CCDS Ot I48.0 PAROXYSMAL ATRIAL FIBRILLATION 04/05/2017 SAMULE WOLF [facility], ALI FACP CCDS Ot 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 04/05/2017 SAMUEL WOLF [facility], ALI FACP CCDS Ot R06.09 OTHER FORMS OF DYSPNEA 04/05/2017 SAMUEL WOLF [facility], ALI FACP CCDS Ot R53.83 OTHER [...] MD Ot I25.10 ATHSCL HEART DISEASE OF [place] CORONARY 05/12/2017 Kwadwo CARRASCO MD Ot I44.60 [...] ADULT 05/12/2017 Kwadwo CARRASCO MD Ot Z79.01 AUTO INSPECTOR (CURRENT) USE OF ANTICOAGULANT 05/12/2017 Kwadwo CARRASCO [...] MD Ot I25.10 ATHSCL HEART DISEASE OF [place] CORONARY 05/25/2017 Kwadwo CARRASCO MD Ot I44.60 [...] ADULT 05/25/2017 Kwadwo CARRASCO MD Ot Z79.01 AUTO INSPECTOR (CURRENT) USE OF ANTICOAGULANT 05/25/2017 Kwadwo CARRASCO MD Ot Z79.899 OTHER AUTO INSPECTOR (CURRENT) DRUG THERAPY 05/25/2017 Kwadwo CARRASCO MD, [...] MD Ot I25.10 ATHSCL HEART DISEASE OF [place] CORONARY 06/05/2017 Kwadwo CARRASCO MD Ot I44.60 [...] ADULT 06/05/2017 Kwadwo CARRASCO MD Ot Z79.01 SENIOR LIVING (CURRENT) USE OF ANTICOAGULANT 06/05/2017 Kwadwo CARRASCO [...] OF PROSTATE 06/13/2017 Kwadwo CARRASCO MD Ot E11.9 TYPE 2 DIABETES MELLITUS WITHOUT COMPLIC 06/13/2017 Kwadwo CARRASCO MD, Ot E66.9 OBESITY, UNSPECIFIED 06/13/2017 Kwadwo CARRASCO MD Ot 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 06/13/2017 Kwadwo CARRASCO MD Ot E78.5 HYPERLIPIDEMIA, UNSPECIFIED 06/13/2017 Kwadwo CARRASCO MD Ot G47.33 OBSTRUCTIVE SLEEP APNEA (ADULT) (PEDIATR 06/13/2017 Kwadwo CARRASCO MD Ot I10 ESSENTIAL (PRIMARY) HYPERTENSION 06/13/2017 Kwadwo CARRASCO MD Ot I25.119 ATHSCL HEART DISEASE OF [place] COR ART W 06/13/2017 Kwadwo CARRASCO MD Ot I46.9 CARDIAC ARREST, CAUSE UNSPECIFIED 06/13/2017 Kwadwo CARRASCO MD Ot I48.0 PAROXYSMAL ATRIAL FIBRILLATION 06/13/2017 Kwadwo CARRASCO MD Ot I49.5 SICK SINUS SYNDROME 06/13/2017 Kwadwo CARRASCO MD Ot K21.9 GASTRO-ESOPHAGEAL REFLUX DISEASE WITHOUT 06/13/2017 Kwadwo CARRASCO MD Ot M25.552 PAIN IN LEFT HIP 06/13/2017 Kwadwo CARRASCO MD Ot Z68.35 BODY MASS INDEX (BMI) 35.0-35.9, ADULT 06/13/2017 Kwadwo CARRASCO MD Ot Z95.1 PRESENCE OF AORTOCORONARY BYPASS GRAFT 06/15/2017 Kwadwo CARRASCO MD Ot E11.9 TYPE 2 DIABETES MELLITUS WITHOUT COMPLIC 06/15/2017 Kwadwo CARRASCO MD Ot E66.9 OBESITY, UNSPECIFIED 06/15/2017 Kwadwo CARRASCO MD Ot 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 06/15/2017 Kwadwo CARRASCO MD Ot E78.5 HYPERLIPIDEMIA, UNSPECIFIED 06/15/2017 Kwadwo CARRASCO MD Ot G47.33 OBSTRUCTIVE SLEEP APNEA (ADULT) (PEDIATR 06/15/2017 Kwadwo CARRASCO MD Ot I10 ESSENTIAL (PRIMARY) HYPERTENSION 06/15/2017 Kwadwo CARRASCO MD, Ot I25.119 ATHSCL HEART DISEASE OF [place] COR ART W 06/15/2017 Kwadwo CARRASCO MD Ot I46.9 CARDIAC ARREST, CAUSE UNSPECIFIED 06/15/2017 Kwadwo CARRASCO MD Ot I48.0 PAROXYSMAL ATRIAL FIBRILLATION 06/15/2017 Kwadwo CARRASCO MD, Ot I49.5 SICK SINUS SYNDROME 06/15/2017 Kwadwo [...] MD Ot I25.119 ATHSCL HEART DISEASE OF [place] COR ART W 06/21/2017 Kwadwo CARRASCO MD Ot I46.9 CARDIAC ARREST, CAUSE UNSPECIFIED 06/21/2017 Kwadwo CARRASCO MD Ot I48.0 PAROXYSMAL ATRIAL FIBRILLATION 06/21/2017 Kwadwo CARRASCO MD Ot I49.5 SICK SINUS SYNDROME 06/21/2017 Kwadwo CARRASCO MD, Ot K21.9 GASTRO-ESOPHAGEAL REFLUX DISEASE WITHOUT 06/21/2017 Kwadwo CARRASCO MD Ot M25.552 PAIN IN LEFT HIP 06/21/2017 Kwadwo CARRASCO MD Ot Z68.35 BODY MASS INDEX (BMI) 35.0-35.9, ADULT 06/21/2017 Kwadwo CARRASCO MD Ot Z95.1 PRESENCE OF AORTOCORONARY BYPASS GRAFT 06/22/2017 Kwadwo CARRASCO MD Ot E11.9 TYPE 2 DIABETES MELLITUS WITHOUT COMPLIC 06/22/2017 Kwadwo CARRASCO MD Ot E66.8 OTHER OBESITY 06/22/2017 Kwadwo CARRASCO MD Ot E78.5 HYPERLIPIDEMIA, UNSPECIFIED 06/22/2017 Kwadwo CARRASCO MD Ot G47.33 OBSTRUCTIVE SLEEP APNEA (ADULT) (PEDIATR 06/22/2017 Kwadwo CARRASCO MD Ot I10 ESSENTIAL (PRIMARY) HYPERTENSION 06/22/2017 Kwadwo CARRASCO MD Ot I25.10 ATHSCL HEART DISEASE OF [place] CORONARY 06/22/2017 Kwadwo CARRASCO MD Ot I44.60 [...] ADULT 06/22/2017 Kwadwo CARRASCO MD Ot Z79.01 AUTO INSPECTOR (CURRENT) USE OF ANTICOAGULANT 06/22/2017 Kwadwo CARRASCO MD Ot Z79.899 OTHER AUTO INSPECTOR (CURRENT) DRUG THERAPY 06/22/2017 Kwadwo CARRASCO MD, Ot Z87.891 PERSONAL HISTORY [...] I10 ESSENTIAL (PRIMARY) HYPERTENSION 06/28/2017 Kwadwo CARRASCO MD Ot I25.10 ATHSCL HEART DISEASE OF [place] CORONARY 06/28/2017 Kwadwo CARRASCO MD Ot I44.60 UNSPECIFIED FASCICULAR BLOCK 06/28/2017 Kwadwo CARRASCO MD Ot I48.0 PAROXYSMAL ATRIAL FIBRILLATION 06/28/2017 Kwadwo CARRASCO MD Ot K21.9 GASTRO-ESOPHAGEAL REFLUX DISEASE WITHOUT 06/28/2017 Kwadwo CARRASCO MD Ot R00.0 TACHYCARDIA, UNSPECIFIED 06/28/2017 Kwadwo CARRASCO MD Ot R00.1 BRADYCARDIA, UNSPECIFIED 06/28/2017 Kwadwo CARRASCO MD Ot R53.83 OTHER FATIGUE 06/28/2017 Kwadwo CARRASCO MD Ot Z68.34 BODY MASS INDEX (BMI) 34.0-34.9, ADULT 06/28/2017 Kwadwo CARRASCO MD, Ot Z79.01 AUTO INSPECTOR (CURRENT) USE OF ANTICOAGULANT 06/28/2017 Kwadwo CARRASCO MD, Ot Z79.899 OTHER AUTO INSPECTOR (CURRENT) DRUG THERAPY 06/28/2017 Kwadwo CARRASCO MD, Ot Z87.891 PERSONAL HISTORY OF NICOTINE DEPENDENCE 06/28/2017 Kwadwo CARRASCO MD, Ot Z95.1 PRESENCE OF AORTOCORONARY BYPASS GRAFT 06/28/2017 Kwadwo CARRASCO MD, Ot Z95.5 PRESENCE OF CORONARY ANGIOPLASTY IMPLANT 07/13/2017 RYAN SHETTY MD Ot A41.4 SEPSIS DUE TO ANAEROBES 07/13/2017 RYAN SHETTY MD Ot B96.4 PROTEUS (MIRABILIS) (MORGANII) CAUSING D 07/13/2017 RYAN SHETTY MD Ot E11.9 TYPE 2 DIABETES MELLITUS WITHOUT COMPLIC 07/13/2017 RYAN SHETTY MD Ot E78.00 PURE HYPERCHOLESTEROLEMIA, UNSPECIFIED 07/13/2017 RYAN SHETTY MD Ot E83.42 HYPOMAGNESEMIA 07/13/2017 RYAN SHETTY MD Ot E87.70 FLUID OVERLOAD, UNSPECIFIED 07/13/2017 RYAN SHETTY MD Ot G47.30 SLEEP APNEA, UNSPECIFIED 07/13/2017 RYAN SHETTY MD Ot H91.90 UNSPECIFIED HEARING LOSS, UNSPECIFIED EA 07/13/2017 RYAN SHETTY MD Ot I10 ESSENTIAL (PRIMARY) HYPERTENSION 07/13/2017 RYAN SHETTY MD Ot I25.119 ATHSCL HEART DISEASE OF [place] COR ART W 07/13/2017 RYAN SHETTY MD Ot I34.0 NONRHEUMATIC MITRAL (VALVE) INSUFFICIENC 07/13/2017 RYAN SHETTY MD Ot I45.10 UNSPECIFIED RIGHT BUNDLE-BRANCH BLOCK 07/13/2017 RYAN SHETTY MD Ot I48.91 UNSPECIFIED ATRIAL FIBRILLATION 07/13/2017 RYAN SHETTY MD Ot K21.9 GASTRO-ESOPHAGEAL REFLUX DISEASE WITHOUT 07/13/2017 RYAN SHETTY MD Ot M19.91 PRIMARY OSTEOARTHRITIS, UNSPECIFIED SITE 07/13/2017 RYAN SHETTY MD, Ot N39.0 URINARY TRACT INFECTION, SITE NOT SPECIF 07/13/2017 RYAN SHETTY MD, Ot N40.0 BENIGN PROSTATIC HYPERPLASIA WITHOUT LOW 07/13/2017 RYAN SHETTY MD Ot R07.9 CHEST PAIN, UNSPECIFIED 07/13/2017 RYAN SHETTY MD, Ot Z79.84 AUTO INSPECTOR (CURRENT) USE OF ORAL HYPOGLYC 07/13/2017 RYAN SHETTY MD Ot Z85.46 PERSONAL HISTORY OF MALIGNANT NEOPLASM O 07/13/2017 RYAN SHETTY MD Ot Z86.010 PERSONAL HISTORY OF COLONIC POLYPS 07/13/2017 RYAN SHETTY MD, Ot Z86.19 PERSONAL HISTORY OF OTHER INFECTIOUS AND 07/13/2017 RYAN SHETTY MD Ot Z86.73 PRSNL HX OF TIA (TIA), AND CEREB INFRC W 07/13/2017 RYAN SHETTY MD Ot Z87.01 PERSONAL HISTORY OF PNEUMONIA (RECURRENT 07/13/2017 RYAN SHETTY MD Ot Z87.442 PERSONAL HISTORY OF URINARY CALCULI 07/13/2017 RYAN SHETTY MD Ot Z87.891 PERSONAL HISTORY OF NICOTINE DEPENDENCE 07/13/2017 RYAN SHETTY MD Ot Z92.3 PERSONAL HISTORY OF IRRADIATION 07/13/2017 RYAN SHETTY MD Ot Z95.0 PRESENCE OF CARDIAC PACEMAKER 07/13/2017 RYAN SHETTY MD Ot Z95.1 PRESENCE OF AORTOCORONARY BYPASS GRAFT 07/13/2017 RYAN SHETTY MD Ot Z95.5 PRESENCE OF CORONARY ANGIOPLASTY IMPLANT 08/05/2017 Ot 786.2 COUGH 08/05/2017 Ot 785.1 PALPITATIONS 08/05/2017 JAVIER BELLO DO Ot V72.84 EXAM PRE-OPERATIVE NOS 08/05/2017 RYAN SHETTY MD Ot 268.9 VITAMIN D DEFICIENCY NOS 08/05/2017 RYAN SHETTY MD Ot 515 POSTINFLAM PULM FIBROSIS 08/05/2017 BARBI MD, RYAN A Ot 733.90 BONE CARTILAGE DIS NOS 08/05/2017 BARBI WOLF, RYAN Schreiber Ot 786.52 PAINFUL RESPIRATION 08/05/2017 BARBI WOLF, RYAN Schreiber Ot V45.82 PERCUTANEOUS TRANSLUM CORON ANGIOPLASTY 08/05/2017 Ot 185 MALIGN NEOPL PROSTATE 08/05/2017 Ot 592.0 CALCULUS OF KIDNEY 08/05/2017 CHAPIS WOLF, ANDREW Schreiber Ot 185 MALIGN NEOPL PROSTATE 08/05/2017 CHAPIS WOLF, ANDREW Schreiber Ot V72.81 HDTP-[id number]-CPEQEPERE CARDIOVASCULAR 08/05/2017 CHAPIS WOLF, ANDREW Schreiber Ot V74.8 SCREEN-BACTERIAL DIS NEC 08/05/2017 TIN SOTO DO Ot 414.00 CORON ATHEROSCLER NOS TYPE VESSEL, NATIV 08/05/2017 TIN SOTO DO Ot 786.09 RESPIRATORY ABNORM NEC 08/05/2017 CHETNA WOLF, PERNELL Fermin Ot C61 MALIGNANT NEOPLASM OF PROSTATE 08/05/2017 ANDREW NATION MD Ot N20.0 CALCULUS OF KIDNEY 08/05/2017 CHAPIS WOLF, ANDREW Schreiber Ot Z09 ENCNTR FOR F/U EXAM AFT TRTMT FOR COND O 08/05/2017 DEMAR WOLF, ZHANNA Suazo Ot R07.9 CHEST PAIN, UNSPECIFIED 08/05/2017 SAMUEL WOLF FACC, MICHAEL FACP CCDS Ot E66.09 OTHER OBESITY DUE TO EXCESS CALORIES 08/05/2017 SAMUEL WOLF FACC, ALI FACP CCDS Ot E78.4 OTHER HYPERLIPIDEMIA 08/05/2017 SAMUEL WOLF FACC, ALI FACP CCDS Ot I10 ESSENTIAL (PRIMARY) HYPERTENSION 08/05/2017 SAMUEL WOLF FACC, ALI FACP CCDS Ot I48.0 PAROXYSMAL ATRIAL FIBRILLATION 08/05/2017 SAMUEL WOLF FACC, ALI FACP CCDS Ot 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 08/05/2017 SAMUEL WOLF FACC, ALI FACP CCDS Ot R06.09 OTHER FORMS OF DYSPNEA 08/05/2017 SAMUEL WOLF FACC, ALI FACP CCDS Ot R53.83 OTHER FATIGUE 08/05/2017 SAMUEL WOLF FACC, ALI FACP CCDS Ot E66.09 OTHER OBESITY DUE TO EXCESS CALORIES 08/05/2017 SAMUEL WOLF FACC, ALI FACP CCDS Ot E78.4 OTHER HYPERLIPIDEMIA 08/05/2017 SAMUEL RICHARDC, MICHAEL RICHARDP CCDS Ot I10 ESSENTIAL (PRIMARY) HYPERTENSION 08/05/2017 SAMUEL WOLF [facility], ALI FACP CCDS Ot I48.0 PAROXYSMAL ATRIAL FIBRILLATION 08/05/2017 SAMUEL WOLF FACC, ALI FACP CCDS Ot 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 08/05/2017 SAMUEL WOLF FACDaja, ALI FACP CCDS Ot R06.09 OTHER FORMS OF DYSPNEA 08/05/2017 SAMUEL WOLF FACC, ALI FACP CCDS Ot R53.83 OTHER FATIGUE 08/05/2017 Kwadwo CARRASCO MD Ot E11.9 TYPE 2 DIABETES MELLITUS WITHOUT COMPLIC 08/05/2017 Kwadwo CARRASCO MD Ot E66.8 OTHER OBESITY 08/05/2017 Kwadwo CARRASCO MD Ot E78.5 HYPERLIPIDEMIA, UNSPECIFIED 08/05/2017 Kwadwo CARRASCO MD Ot G47.33 OBSTRUCTIVE SLEEP APNEA (ADULT) (PEDIATR 08/05/2017 Kwadwo CARRASCO MD Ot I10 ESSENTIAL (PRIMARY) HYPERTENSION 08/05/2017 Kwadwo CARRASCO MD Ot I25.10 ATHSCL HEART DISEASE OF [place] CORONARY 08/05/2017 Kwadwo CARRASCO MD Ot I44.60 UNSPECIFIED FASCICULAR BLOCK 08/05/2017 Kwadwo CARRASCO MD Ot I48.0 PAROXYSMAL ATRIAL FIBRILLATION 08/05/2017 Kwadwo CARRASCO MD Ot K21.9 GASTRO-ESOPHAGEAL REFLUX DISEASE WITHOUT 08/05/2017 Kwadwo CARRASCO MD Ot R00.0 TACHYCARDIA, UNSPECIFIED 08/05/2017 Kwadwo CARRASCO MD Ot R00.1 BRADYCARDIA, UNSPECIFIED 08/05/2017 Kwadwo CARRASCO MD Ot R53.83 OTHER FATIGUE 08/05/2017 Kwadwo CARRASCO MD Ot Z68.34 BODY MASS INDEX (BMI) 34.0-34.9, ADULT 08/05/2017 Kwadwo CARRASCO MD Ot Z79.01 SENIOR LIVING (CURRENT) USE OF ANTICOAGULANT 08/05/2017 Kwadwo CARRASCO MD Ot Z79.899 OTHER SENIOR LIVING (CURRENT) DRUG THERAPY 08/05/2017 Kwadwo CARRASCO MD, Ot Z87.891 PERSONAL HISTORY OF NICOTINE DEPENDENCE 08/05/2017 LUNA WOLF, Kwadwo JEFFRIES Ot Z95.1 PRESENCE OF AORTOCORONARY BYPASS GRAFT 08/05/2017 Kwadwo CARRASCO MD Ot Z95.5 PRESENCE OF CORONARY ANGIOPLASTY IMPLANT 08/06/2017 MAGDALENA CROWE DO Ot E11.9 TYPE 2 DIABETES MELLITUS WITHOUT COMPLIC 08/06/2017 MAGDALENA CROWE DO Ot E78.00 PURE HYPERCHOLESTEROLEMIA, UNSPECIFIED 08/06/2017 MAGDALENA CROWE DO Ot G47.30 SLEEP APNEA, UNSPECIFIED 08/06/2017 MAGDALENA CROWE DO Ot I10 ESSENTIAL (PRIMARY) HYPERTENSION 08/06/2017 MAGDALENA CROWE DO Ot I25.10 ATHSCL HEART DISEASE OF [place] CORONARY 08/06/2017 MAGDALENA CROWE DO Ot I48.91 UNSPECIFIED ATRIAL FIBRILLATION 08/06/2017 MAGDALENA CROWE DO Ot J06.9 ACUTE UPPER RESPIRATORY INFECTION, UNSPE 08/06/2017 MAGDALENA CROWE DO Ot J11.1 FLU DUE TO UNIDENTIFIED INFLUENZA VIRUS 08/06/2017 MAGDALENA CROWE DO Ot J21.9 ACUTE BRONCHIOLITIS, UNSPECIFIED 08/06/2017 MAGDALENA CROWE DO Ot K21.9 GASTRO-ESOPHAGEAL REFLUX DISEASE WITHOUT 08/06/2017 MAGDALENA CROWE DO Ot R05 COUGH 08/06/2017 MAGDALENA CROWE DO Ot Z85.46 PERSONAL HISTORY OF MALIGNANT NEOPLASM O 08/06/2017 MAGDALENA CROWE DO Ot Z86.73 PRSNL HX OF TIA (TIA), AND CEREB INFRC W 08/06/2017 MAGDALENA CROWE DO Ot Z87.442 PERSONAL HISTORY OF URINARY CALCULI 08/06/2017 MAGDALENA CROWE DO Ot Z87.891 PERSONAL HISTORY OF NICOTINE DEPENDENCE 08/06/2017 MAGDALENA CROWE DO Ot Z88.1 ALLERGY STATUS TO OTHER ANTIBIOTIC AGENT 08/06/2017 MAGDALENA CROWE DO Ot Z88.8 ALLERGY STATUS TO OTH DRUG/MEDS/BIOL SUB 08/06/2017 MAGDALENA CROWE DO Ot Z92.3 PERSONAL HISTORY OF IRRADIATION 08/06/2017 MAGDALENA CROWE DO Ot Z95.0 PRESENCE OF CARDIAC PACEMAKER 08/06/2017 MAGDALENA CROWE DO Ot Z95.1 PRESENCE OF AORTOCORONARY BYPASS GRAFT 08/06/2017 MAGDALENA CROWE DO Ot Z95.5 PRESENCE OF CORONARY ANGIOPLASTY IMPLANT 08/06/2017 Ot 786.2 COUGH 08/06/2017 Ot 785.1 PALPITATIONS 08/06/2017 JAVIER BELLO DO Ot V72.84 EXAM PRE-OPERATIVE NOS 08/06/2017 BARBI WOLF, RYAN Schreiber Ot 268.9 VITAMIN D DEFICIENCY NOS 08/06/2017 BARBI WOLF, RYAN Schreiber Ot 515 POSTINFLAM PULM FIBROSIS 08/06/2017 BARBI WOLF, RYAN Schreiber Ot 733.90 BONE CARTILAGE DIS NOS 08/06/2017 RYAN SHETTY MD Ot 786.52 PAINFUL RESPIRATION 08/06/2017 RYAN SHETTY MD Ot V45.82 PERCUTANEOUS TRANSLUM CORON ANGIOPLASTY 08/06/2017 Ot 185 MALIGN NEOPL PROSTATE 08/06/2017 Ot 592.0 CALCULUS OF KIDNEY 08/06/2017 ANDREW NATION MD Ot 185 MALIGN NEOPL PROSTATE 08/06/2017 ANDREW NATION MD Ot V72.81 [id number] CARDIOVASCULAR 08/06/2017 ANDREW NATION MD Ot V74.8 SCREEN-BACTERIAL DIS NEC 08/06/2017 TIN SOTO DO Ot 414.00 CORON ATHEROSCLER NOS TYPE VESSEL, NATIV 08/06/2017 TIN SOTO DO Ot 786.09 RESPIRATORY ABNORM NEC 08/06/2017 CHETNA WOLF, PERNELL Fermin Ot C61 MALIGNANT NEOPLASM OF PROSTATE 08/06/2017 ANDREW NATION MD Ot N20.0 CALCULUS OF KIDNEY 08/06/2017 ANDREW NATION MD Ot Z09 ENCNTR FOR F/U EXAM AFT TRTMT FOR COND O 08/06/2017 DEMAR WOLF, ZHANNA Suazo Ot R07.9 CHEST PAIN, UNSPECIFIED 08/06/2017 SAMUEL WOLF FACC, MICHAEL RICHARDP CCDS Ot E66.09 OTHER OBESITY DUE TO EXCESS CALORIES 08/06/2017 SAMUEL WOLF FACDaja, MICHAEL RICHARDP CCDS Ot E78.4 OTHER HYPERLIPIDEMIA 08/06/2017 SAMUEL WOLF FACC, ALI FACP CCDS Ot I10 ESSENTIAL (PRIMARY) HYPERTENSION 08/06/2017 SAMUEL WOLF FACC, ALI FACP CCDS Ot I48.0 PAROXYSMAL ATRIAL FIBRILLATION 08/06/2017 SAMUEL WOLF FACC, ALI FACP CCDS Ot 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 08/06/2017 SAMUEL WOLF FACC, ALI FACP CCDS Ot R06.09 OTHER FORMS OF DYSPNEA 08/06/2017 SAMUEL WOLF FACC, ALI FACP CCDS Ot R53.83 OTHER FATIGUE 08/06/2017 SAMUEL WOLF FACC, ALI FACP CCDS Ot E66.09 OTHER OBESITY DUE TO EXCESS CALORIES 08/06/2017 SAMUEL WOLF FACC, ALI FACP CCDS Ot E78.4 OTHER HYPERLIPIDEMIA 08/06/2017 SAMUEL WOLF FACC, ALI FACP CCDS Ot I10 ESSENTIAL (PRIMARY) HYPERTENSION 08/06/2017 SAMUEL WOLF FACC, ALI FACP CCDS Ot I48.0 PAROXYSMAL ATRIAL FIBRILLATION 08/06/2017 SAMUEL WOLF FACC, ALI FACP CCDS Ot 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 08/06/2017 SAMUEL WOLF FACC, ALI FACP CCDS Ot R06.09 OTHER FORMS OF DYSPNEA 08/06/2017 SAMUEL WOLF FACC, ALI FACP CCDS Ot R53.83 OTHER FATIGUE 08/06/2017 Kwadwo CARRASCO MD Ot E11.9 TYPE 2 DIABETES MELLITUS WITHOUT COMPLIC 08/06/2017 Kwadwo CARRASCO MD Ot E66.8 OTHER OBESITY 08/06/2017 Kwadwo CARRASCO MD Ot E78.5 HYPERLIPIDEMIA, UNSPECIFIED 08/06/2017 Kwadwo CARRASCO MD Ot G47.33 OBSTRUCTIVE SLEEP APNEA (ADULT) (PEDIATR 08/06/2017 Kwadwo CARRASCO MD Ot I10 ESSENTIAL (PRIMARY) HYPERTENSION 08/06/2017 Kwadwo CARRASCO MD Ot I25.10 ATHSCL HEART DISEASE OF [place] CORONARY 08/06/2017 Kwadwo CARRASCO MD Ot I44.60 UNSPECIFIED FASCICULAR BLOCK 08/06/2017 Kwadwo CARRASCO MD Ot I48.0 PAROXYSMAL ATRIAL FIBRILLATION 08/06/2017 Kwadwo CARRASCO MD, Ot K21.9 GASTRO-ESOPHAGEAL REFLUX DISEASE WITHOUT 08/06/2017 Kwadwo CARRASCO MD, Ot R00.0 TACHYCARDIA, UNSPECIFIED 08/06/2017 Kwadwo CARRASCO MD, Ot R00.1 BRADYCARDIA, UNSPECIFIED 08/06/2017 Kwadwo CARRASOC MD, Ot R53.83 OTHER FATIGUE 08/06/2017 Kwadwo CARRASCO MD, Ot Z68.34 BODY MASS INDEX (BMI) 34.0-34.9, ADULT 08/06/2017 Kwadwo CARRASCO MD, Ot Z79.01 AUTO INSPECTOR (CURRENT) USE OF ANTICOAGULANT 08/06/2017 Kwadwo CARRASCO MD, Ot Z79.899 OTHER SENIOR LIVING (CURRENT) DRUG THERAPY 08/06/2017 Kwadwo CARRASCO MD, Ot Z87.891 PERSONAL HISTORY OF NICOTINE DEPENDENCE 08/06/2017 Kwadwo CARRASCO MD, Ot Z95.1 PRESENCE OF AORTOCORONARY BYPASS GRAFT 08/06/2017 Kwadwo CARRASCO MD, Ot Z95.5 PRESENCE OF [...] resistant Staphylococcus aureus (MRSA) screening culture NEG NRG Automated blood complete blood count (hemogram) panel [...] 07/11/17 16:20 BNP level 101.6 pg/mL <100.0 Bacterial blood culture - 07/11/17 16:20 Bacterial blood culture NG NRG Complete urinalysis [...] urinalysis with reflex to culture YES NRG Bacterial urine culture - 07/11/17 16:40 Bacterial urine culture [id number] NRG COLONY COUNT >100,000/ML NRG FTX;REPORTABLE ESBL REPORTED TO DR SHETTY 07/12/17 NRG URINE CULTURE RESULTS <10,000/ML NRG FREE TEXT ENTRY 2 16:30. COMPLETE SENSITIVITIES REPORTED NRG FREE TEXT ENTRY 3 07/13/17 8:30 NRG Bacterial susceptibility panel - 07/11/17 16:40 Gentamicin susceptibility test by minimum inhibitory concentration < = NRG Trimethoprim/sulfamethoxazole susceptibility test by minimum inhibitoryconcentration S NRG Ampicillin susceptibility test by minimum inhibitory concentration < = NRG Tobramycin susceptibility test by minimum inhibitory concentration < = NRG Cefazolin susceptibility test by minimum inhibitory concentration < = NRG Ceftriaxone susceptibility test by minimum inhibitory concentration <= NRG Ampicillin/sulbactam susceptibility test by minimum inhibitory concentration <= NRG Piperacillin/tazobactam susceptibility test by minimum inhibitory concentration S NRG Ciprofloxacin susceptibility test by minimum inhibitory concentration <= NRG Meropenem susceptibility test by minimum inhibitory concentration < = NRG Nitrofurantoin susceptibility test by minimum inhibitory concentration 128 NRG Aztreonam susceptibility test by minimum inhibitory concentration < = NRG Bacterial susceptibility panel - 07/11/17 16:40 Gentamicin susceptibility test by minimum inhibitory concentration > = NRG Trimethoprim/sulfamethoxazole susceptibility test by minimum inhibitoryconcentration R NRG Ampicillin susceptibility test by minimum inhibitory concentration > = NRG Tobramycin susceptibility test by minimum inhibitory concentration 8 NRG Cefazolin susceptibility test by minimum inhibitory concentration > = NRG Ceftriaxone susceptibility test by minimum inhibitory concentration >= NRG Ampicillin/sulbactam susceptibility test by minimum inhibitory concentration I NRG Ciprofloxacin susceptibility test by minimum inhibitory concentration >= NRG Meropenem susceptibility test by minimum inhibitory concentration < = NRG Nitrofurantoin susceptibility test by minimum inhibitory concentration 32 NRG Aztreonam susceptibility test by minimum inhibitory concentration R NRG Extended spectrum beta lactamase (ESBL) producing bacteria susceptibility test by minimum inhibitory concentration + NRG Cefepime susceptibility test by minimum inhibitory concentration R NRG Bacterial blood culture - 07/11/17 17:08 Bacterial blood culture NG [facility] Influenza virus A and B antigen detection - 07/11/17 17:15 FLU RESULT NEGATIVE FOR INFLUENZA A AND B ANTIGENS BY IA [facility] Serum or plasma lactate measurement (moles/volume) - 07/11/17 18:47 Serum or plasma lactate measurement (moles/volume) 1.49 mmol/L 0.50-2.00 Capillary blood glucose measurement by glucometer (mass/volume) - 07/11/17 21: 06 Capillary blood glucose measurement by glucometer (mass/volume) 100 mg/dL 70-110 Capillary blood glucose measurement by glucometer (mass/volume) - 07/12/17 05: 49 Capillary blood glucose measurement by glucometer (mass/volume) 148 mg/dL 70-110 Complete blood count (CBC) with automated white blood cell (WBC) differential - 07/12/17 06:30 Blood leukocytes automated count (number/volume) 8.0 10*3/uL 4.3-11.0 Blood erythrocytes automated count (number/volume) 3.85 10*6/uL 4.35-5.85 Venous blood hemoglobin measurement (mass/volume) 12.2 g/dL 13.3-17.7 Blood hematocrit (volume fraction) 36 % 40-54 Automated erythrocyte mean corpuscular volume 94 [foz_us] 80-99 Automated erythrocyte mean corpuscular hemoglobin (mass per erythrocyte) 32 pg 25-34 Automated erythrocyte mean corpuscular hemoglobin concentration measurement ( mass/volume) 34 g/dL 32-36 Automated erythrocyte distribution width ratio 13.9 % 10.0-14.5 Automated blood platelet count (count/volume) 123 10*3/uL 130-400 Automated blood platelet mean volume measurement 11.7 [foz_us] 7.4-10.4 Automated blood neutrophils/100 leukocytes 91 % 42-75 Automated blood lymphocytes/100 leukocytes 3 % 12-44 Blood monocytes/100 leukocytes 6 % 0-12 Automated blood eosinophils/100 leukocytes 0 % 0-10 Automated blood basophils/100 leukocytes 0 % 0-10 Blood neutrophils automated count (number/volume) 7.3 10*3 1.8-7.8 Blood lymphocytes automated count (number/volume) 0.3 10*3 1.0-4.0 Blood monocytes automated count (number/volume) 0.5 10*3 0.0-1.0 Automated eosinophil count 0.0 10*3/uL 0.0-0.3 Automated blood basophil count (count/volume) 0.0 10*3/uL 0.0-0.1 Whole blood basic metabolic panel - 07/12/17 06:30 Serum or plasma sodium measurement (moles/volume) 137 mmol/L 135-145 Serum or plasma potassium measurement (moles/volume) 4.3 mmol/L 3.6-5.0 Serum or plasma chloride measurement (moles/volume) 107 mmol/L 98-107 Carbon dioxide 23 mmol/L 21-32 Serum or plasma anion gap determination (moles/volume) 7 mmol/L 5-14 Serum or plasma urea nitrogen measurement (mass/volume) 18 mg/dL 7-18 Serum or plasma creatinine measurement (mass/volume) 1.40 mg/dL 0.60-1.30 Serum or plasma urea nitrogen/creatinine mass ratio 13 NRG Serum or plasma creatinine measurement with calculation of estimated glomerular filtration rate 49 NRG Serum or plasma glucose measurement (mass/volume) 138 mg/dL 70-105 Serum or plasma calcium measurement (mass/volume) 8.3 mg/dL 8.5-10.1 Serum or plasma troponin i.cardiac measurement (mass/volume) - 07/12/17 06:30 Serum or plasma troponin i.cardiac measurement (mass/volume) < ng/ mL <0.30 Lipid 1996 panel - 07/12/17 06:30 Serum or plasma triglyceride measurement (mass/volume) 103 mg/dL <150 Serum or plasma cholesterol measurement (mass/volume) 131 mg/dL < 200 Serum or plasma cholesterol in HDL measurement (mass/volume) 26 mg/ dL 40-60 Cholesterol in LDL [mass/volume] in serum or plasma by direct assay 87 mg/dL 1-129 Serum or plasma cholesterol in VLDL measurement (mass/volume) 21 mg/ dL 5-40 Capillary blood glucose measurement by glucometer (mass/volume) - 07/12/17 11: 02 Capillary blood glucose measurement by glucometer (mass/volume) 139 mg/dL 70-110 Capillary blood glucose measurement by glucometer (mass/volume) - 07/12/17 16: 15 Capillary blood glucose measurement by glucometer (mass/volume) 140 mg/dL 70-110 Capillary blood glucose measurement by glucometer (mass/volume) - 07/12/17 21: 03 Capillary blood glucose measurement by glucometer (mass/volume) 128 mg/dL 70-110 Capillary blood glucose measurement by glucometer (mass/volume) - 07/13/17 06: 25 Capillary blood glucose measurement by glucometer (mass/volume) 109 mg/dL 70-110 Influenza virus A and B antigen detection - 08/05/17 23:30 FLU RESULT NEGATIVE FOR INFLUENZA A AND B ANTIGENS BY [facility] Complete blood count (CBC) with automated white blood cell (WBC) differential - 11/11/17 06:46 Blood leukocytes automated count (number/volume) 4.3 10*3/uL 4.3-11.0 Blood erythrocytes automated count (number/volume) 4.44 10*6/uL 4.35-5.85 Venous blood hemoglobin measurement (mass/volume) 13.7 g/dL 13.3-17.7 Blood hematocrit (volume fraction) 41 % 40-54 Automated erythrocyte mean corpuscular volume 91 [foz_us] 80-99 Automated erythrocyte mean corpuscular hemoglobin (mass per erythrocyte) 31 pg 25-34 Automated erythrocyte mean corpuscular hemoglobin concentration measurement ( mass/volume) 34 g/dL 32-36 Automated erythrocyte distribution width ratio 14.5 % 10.0-14.5 Automated blood platelet count (count/volume) 156 10*3/uL 130-400 Automated blood platelet mean volume measurement 12.1 [foz_us] 7.4-10.4 Automated blood neutrophils/100 leukocytes 41 % 42-75 Automated blood lymphocytes/100 leukocytes 40 % 12-44 Blood monocytes/100 leukocytes 17 % 0-12 Automated blood eosinophils/100 leukocytes 3 % 0-10 Automated blood basophils/100 leukocytes 0 % 0-10 Blood neutrophils automated count (number/volume) 1.8 10*3 1.8-7.8 Blood lymphocytes automated count (number/volume) 1.7 10*3 1.0-4.0 Blood monocytes automated count (number/volume) 0.7 10*3 0.0-1.0 Automated eosinophil count 0.1 10*3/uL 0.0-0.3 Automated blood basophil count (count/volume) 0.0 10*3/uL 0.0-0.1 PT panel in platelet poor plasma by coagulation assay - 11/11/17 06:46 Prothrombin time (PT) in platelet poor plasma by coagulation assay 15.6 s 12.2-14.7 INR in platelet poor plasma or blood by coagulation assay 1.2 0.8-1.4 Comprehensive metabolic panel - 11/11/17 06:46 Serum or plasma sodium measurement (moles/volume) 141 mmol/L 135-145 Serum or plasma potassium measurement (moles/volume) 3.8 mmol/L 3.6-5.0 Serum or plasma chloride measurement (moles/volume) 109 mmol/L 98-107 Carbon dioxide 21 mmol/L 21-32 [...] NRG Serum or plasma glucose measurement (mass/volume) 153 mg/dL 70-105 Serum or plasma calcium measurement (mass/volume) 9.6 mg/dL 8.5-10.1 Serum or plasma total bilirubin measurement (mass/volume) 0.8 mg/dL 0.1-1.0 Serum or plasma alkaline phosphatase measurement (enzymatic activity/volume) 38 U/L 40-136 Serum or plasma aspartate aminotransferase measurement (enzymatic activity/ volume) 18 U/L 5-34 Serum or plasma alanine aminotransferase measurement (enzymatic activity/volume ) 14 U/L 0-55 Serum or plasma protein measurement (mass/volume) 6.6 g/dL 6.4-8.2 Serum or plasma albumin measurement (mass/volume) 4.1 g/dL 3.2-4.5 Serum or plasma troponin i.cardiac measurement (mass/volume) - 11/11/17 06:46 Serum or plasma troponin i.cardiac measurement (mass/volume) < ng/ mL <0.30 Serum or plasma salicylates measurement (mass/volume) - 11/11/17 06:46 Serum or plasma salicylates measurement (mass/volume) < mg/dL 5.0-20.0 Serum or plasma troponin i.cardiac measurement (mass/volume) - 11/11/17 12:45 Serum or plasma troponin i.cardiac measurement (mass/volume) < ng/ mL <0.30 Encounters ACCT No. Visit Date/Time Discharge Status Pt. Type Provider Facility Loc./Unit Complaint [id number] 08/05/2017 22:58:00 08/06/2017 00:40:00 DIS Emergency SEBASTIEN DO, MAGDALENA K [facility] ER COLD SYMPTOMS [id number] 07/11/2017 17:42:00 07/13/2017 11:30:00 DIS Inpatient RYAN SHETTY MD [facility] 4TH SEPSIS-UTI,CHEST PAIN- ANGINA,HYPOMAGNESEMIA [id number] 06/12/2017 10:43:00 06/13/2017 20:31:00 DIS Outpatient Kwadwo CARRASCO MD [facility] [address] AF,SIGNIFICANT SYMPTOMATIC PAUSES [id number] 05/11/2017 07:30:00 05/11/2017 23:59:59 CLS Outpatient Kwadwo CARRASCO MD [facility] [address] [employer] FOR AFIB [id number] 03/18/2017 22:15:00 03/19/2017 13:07:00 DIS Inpatient RYAN SHETTY MD [facility] ICU CHEST PAIN; HYPERTENSIVE URGENCY [id number] 03/09/2017 12:34:00 03/09/2017 23:59:59 CLS Outpatient SAMUEL WOLF FACDaja, MICHAEL SANTIAGO CCDS [facility] CARD RAMIREZ R06.09 [id number] 02/28/2017 07:12:00 02/28/2017 23:59:59 CLS Outpatient SAMUEL WOLF FACC, MICHAEL SANTIAGO CCDS [facility] CARD RAMIREZ R06.09 [id number] 07/18/2016 13:24:00 07/18/2016 15:18:00 DIS Outpatient RYAN SHETTY MD [facility] REHAB BACK PAIN; GENERALIZED WEAKNESS; FALLING EPISODES [id number] 05/27/2016 19:01:00 05/28/2016 06:15:00 DIS Outpatient JAMIL MONTERO APRN [facility] SLEEP ARRHYTHMLAS, EXCESSIVE DAYTIME SLEEPINESS [id number] 04/27/2016 09:15:00 05/02/2016 11:50:00 DIS Inpatient RYAN SHETTY MD [facility] 4TH SWB - FEVER,WEAKNESS [id number] 04/24/2016 10:01:00 04/27/2016 09:00:00 DIS Inpatient RAFAL DC DO [facility] 4TH FEVER [id number] 03/24/2016 14:48:00 03/24/2016 23:59:59 CLS Outpatient ZHANNA BENZ MD [facility] RAD CHEST PAIN,UNSPECIFIED [id number] 01/29/2016 07:42:00 01/29/2016 10:20:00 DIS Outpatient JEFF LOUIS MD [facility] SDC OCCULT POSITIVE STOOLS [id number] 01/27/2016 05:40:00 01/27/2016 16:01:00 DIS Outpatient JEFF LOUIS MD [facility] PREOP OCCULT POSITIVE STOOLS [id number] 11/17/2015 12:46:00 11/17/2015 23:59:59 CLS Outpatient ANDREW NATION MD [facility] RAD STONE [id number] 11/03/2015 05:59:00 11/03/2015 10:20:00 DIS Outpatient ANDREW NATION MD [facility] SDC RIGHT STONE [id number] 10/30/2015 05:41:00 10/30/2015 11:06:00 DIS Outpatient ANDREW NATION MD [facility] PREOP RIGHT STONE [id number] 10/28/2015 04:07:00 10/28/2015 06:12:00 DIS Emergency MAGDALENA CROWE DO [facility] ER BLOOD IN URINE [id number] 07/01/2015 00:10:00 07/01/2015 23:59:59 CLS Preadmit PERNELL BASILIO MD [facility] ONC [id number] 04/01/2015 09:27:00 06/30/2015 00:01:00 DIS Outpatient PERNELL BASILIO MD [facility] ONC [id number] 06/18/2015 23:59:00 06/18/2015 23:59:00 CAN Emergency MAGDALENA CROWE DO [facility] ER CHEST PAIN;A-FIB W/RVR [id number] 03/18/2015 19:50:00 03/19/2015 06:45:00 DIS Outpatient TIN SOTO DO [facility] SLEEP ARRHYTHMIAS ISCHEMIC HEART DISEASE HTN [id number] 02/26/2015 12:33:00 02/27/2015 11:35:00 DIS Inpatient JUAN J ALEMAN MD [facility] CSD AFIB, [id number] 01/28/2015 11:40:00 01/28/2015 23:59:59 CLS Outpatient BRITTANY SUTHERLAND TIN Kwadwo [facility] RT DYSPNEA ON EXERCTION, DYSPNEA,CAD [id number] 10/29/2014 08:59:00 12/04/2014 00:01:00 DIS Outpatient PERNELL BASILIO MD [facility] ONC [id number] 11/19/2014 17:44:00 11/19/2014 18:35:00 DIS Emergency ARIK CHOE MD [facility] ER ELEVATED HEART RATE [id number] 10/01/2014 06:00:00 10/01/2014 11:53:00 DIS Outpatient ANDREW NATION MD [facility] PROSTATE CANCER [id number] 09/24/2014 10:38:00 09/24/2014 23:59:59 CLS Outpatient ANDREW NATION MD [facility] PREOP PROSTATE CANCER [id number] 04/21/2014 12:24:00 04/23/2014 11:10:00 DIS Inpatient RYAN SHETTY MD [facility] 4TH DEHYDRATION [id number] 02/07/2014 19:28:00 02/07/2014 20:31:00 DIS Emergency [place] ANDERSON APRN [facility] ER ENLARGED TICK BITE [id number] 11/21/2013 08:26:00 11/21/2013 23:59:59 CLS Outpatient RYAN SHETTY MD [facility] RAD LOW ALKALINE PHOSPHATES,CP,CHEST WALL PAIN,VIT D D [id number] 10/08/2013 10:51:00 10/08/2013 18:01:00 DIS Outpatient SAMUEL WOLF FACC, ALI FACP CCDS [facility] CATH CP,CAD,HLP [id number] 08/20/2013 12:36:00 08/20/2013 16:30:00 DIS Outpatient JAVIER BELLO DO [facility] CHEST PAIN [id number] 08/14/2013 07:25:00 08/14/2013 23:59:59 CLS Outpatient JAVIER BELLO DO [facility] PREOP CHEST PAINS [id number] 04/10/2013 08:56:00 07/09/2013 00:01:00 DIS Outpatient ANGELITA DUDLEY [facility] CARD PALPITATIONS [id number] 01/06/2013 19:32:00 01/11/2013 11:50:00 DIS Inpatient RYAN SHETTY MD [facility] 4TH FEVER, NEUTROPENIA, POSSIBLE PNEUMONIA [id number] 01/04/2013 17:18:00 01/04/2013 23:59:59 CLS Outpatient [id number] 11/23/2012 13:01:00 11/23/2012 21:50:00 DIS Outpatient SAMUEL WOLF FACC, MICHAEL SANTIAGO CCDS [facility] CATH CAD,ANGINA, SOB,HTN,DM,HYPERLIPIDEMIA,FATIGUE,CABG, [id number] 11/15/2012 22:43:00 11/16/2012 16:00:00 DIS Inpatient RYAN SHETTY MD [facility] CSD CHEST PAIN [id number] 10/27/2012 09:58:00 10/27/2012 23:59:59 CLS Outpatient [id number] 10/27/2012 20:17:00 10/27/2012 21:59:00 DIS Emergency TOSHA BROOKS MD [facility] ER UNCONTROLABLE SHAKING [id number] 11/11/2017 07:06:00 Document Registration [id number] 03/24/2015 16:13:00 Document Registration [id number] 03/24/2015 16:12:00 Document Registration [id number] 03/24/2015 16:12:00 Document Registration [id number] 03/24/2015 16:12:00 Document Registration [id number] 09/24/2014 11:18:00 Document Registration [id number] 08/22/2014 11:54:00 Document Registration [id number] 07/10/2013 09:00:00 Document Registration [id number] 06/22/2011 13:38:00 Document Registration [id number] 06/08/2011 05:39:00 Document Registration [id number] 06/06/2011 07:41:00 Document Registration [id number] 05/31/2011 14:53:00 Document Registration [id number] 05/23/2011 16:08:00 Document Registration [id number] 05/15/2011 22:45:00 Document Registration [id number] 12/15/2010 11:21:00 Document Registration [id number] 10/12/2010 05:40:00 Document Registration [id number] 10/11/2010 09:02:00 Document Registration [id number] 04/20/2010 11:01:00 Document Registration [id number] 03/19/2015 07:46:46 ACT Document Registration [id number] 04/28/2017 09:29:56 04/28/2017 23:59:59 [facility] Outpatient Ryan Shetty
--- OUTSIDE RECORDS SUMMARY | 2017-11-13 13:15 | XMS REPORT | Continuity of Care Document ---
Author Author [facility] Organization [facility] Address Unknown Phone Unavailable Allergies Active Description Code Type Severity Reaction Onset Reported/Identified Relationship to Patient Clinical Status Yes UNKNOWN ANTIBIOTIC UNKNOWN ANTIBIOTIC Mild N/A 09/06/2007 Yes No Known Drug Allergies [id number] Drug Allergy Unknown N/A 09/06/2007 Yes ciprofloxacin [id number] Drug Allergy Unknown HALLUCINATIONS 01/29/2016 Yes clonidine [id number] Drug Allergy Unknown HALLUCINATIONS 01/29/2016 Yes ciprofloxacin [id number] Drug Allergy Mild HALLUCINATIONS 02/28/2017 Yes clonidine [id number] Drug Allergy Mild HALLUCINATIONS 02/28/2017 Yes AMINODORONE AMINODORONE Unknown N/A 03/18/2017 Yes amiodarone [id number] Drug Allergy Unknown N/A 06/12/2017 Medications There is no data. Problems Date Dx Coded Attending Type Code Diagnosis Diagnosed By 05/25/1517 RYAN SHETTY MD Ot M54.5 LOW BACK PAIN 05/25/1517 RYAN SHETTY MD Ot R53.1 WEAKNESS 10/13/2010 Ot 271.3 DISACCHARIDASE DEF/MALAB 10/13/2010 Ot 272.4 HYPERLIPIDEMIA NEC/NOS 10/13/2010 Ot 413.9 ANGINA PECTORIS NEC/NOS 10/13/2010 Ot 414.01 CORONARY ATHEROSCLEROSIS OF [place] CORON 10/13/2010 Ot 424.0 MITRAL VALVE DISORDER [...] FACP CCDS Ot 414.01 CORONARY ATHEROSCLEROSIS OF [place] CORON 11/23/2012 MICHAEL BAKER MD, FACC FACP [...] BAKER MD, FACC FACP CCDS Ot V58.69 [facility] MED,LT,CURRENT USE 01/11/2013 RYAN SHETTY MD [...] MD Ot 787.91 DIARRHEA 07/09/2013 ANGELITA DUDLEY APPLICATION SOFTWARE DEVELOPER Ot 785.1 PALPITATIONS 08/20/2013 EUGENIA SUTHERLAND JAVIER Marian Ot 531.90 STOMACH ULCER NOS 10/08/2013 SAMUEL WOLF FACC, ALI FACP CCDS Ot 271.3 DISACCHARIDASE DEF/MALAB 10/08/2013 SAMUEL WOLF FACC, ALI FACP CCDS Ot 272.4 HYPERLIPIDEMIA NEC/NOS 10/08/2013 SAMUEL WOLF FACC, ALI FACP CCDS Ot 278.00 OBESITY, NOS 10/08/2013 SAMUEL WOLF FACC, ALI FACP CCDS Ot 414.01 CORONARY ATHEROSCLEROSIS OF [place] CORON 10/08/2013 MICHAEL BAKER MD, FACC FACP [...] MASS INDEX 36.0-36.9, ADULT 02/07/2014 [place] MACHINE LACER Ot 682.6 CELLULITIS OF LEG 02/07/2014 [place] MACHINE LACER Ot 916.5 INSECT BITE HIP/LEG-INF 02/07/2014 [place] AND[place] MACHINE LACER Ot E906.4 NONVENOM ARTHROPOD BITE 04/23/2014 RYAN [...] SHETTY MD Ot 414.01 CORONARY ATHEROSCLEROSIS OF [place] CORON 04/23/2014 RYAN SHETTY MD Ot 530.81 [...] ALEMAN MD Ot 414.00 02/27/2015 JUAN J ALEAMN MD Ot 426.2 02/27/2015 JUAN J ALEMAN [...] K Ot I10 ESSENTIAL (PRIMARY) HYPERTENSION 06/19/2015 ANCHOR DO, MAGDALENA K Ot I25.10 ATHSCL HEART DISEASE OF [place] CORONARY 06/19/2015 ANCHOR DO, MAGDALENA Ang Ot 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 06/19/2015 SEBASTIEN DO, MAGDALENA Ang Ot I48.0 PAROXYSMAL ATRIAL FIBRILLATION 06/19/2015 ANCHOR DO, MAGDALENA Ang Ot R07.9 CHEST PAIN, UNSPECIFIED 06/20/2015 SEBASTIEN DO, MAGDALENA Ashia Ot E11.9 06/20/2015 SEBASTIEN DO, MAGDALENA Ang Ot E78.5 06/20/2015 SEBASTIEN DO, MAGDALENA Ang Ot I10 06/20/2015 ANCHOR DO, MAGDALENA Ang Ot I25.10 06/20/2015 [facility], MAGDALENA Ang Ot I44.4 06/20/2015 ANCHOR DO, MAGDALENA Ang Ot I48.0 06/20/2015 [facility], MAGDALENA Ang Ot R07.9 06/30/2015 [...] PROSTATE 10/28/2015 ANDREW NATION MD Ot V72.81 [id number]-[id number] CARDIOVASCULAR 10/28/2015 ANDREW NATION MD Ot V74.8 [...] PROSTATE 10/30/2015 ANDREW NATION MD Ot V72.81 [id number]-[id number]-[id number] CARDIOVASCULAR 10/30/2015 ANDREW NATION MD Ot V74.8 SCREEN-BACTERIAL DIS NEC 10/30/2015 TIN SOTO DO Ot 414.00 CORON ATHEROSCLER NOS TYPE VESSEL, NATIV 10/30/2015 TIN SOTO DO Ot 786.09 RESPIRATORY ABNORM NEC 10/30/2015 CEHTNA WOLF, PERNELL Fermin Ot C61 MALIGNANT NEOPLASM OF PROSTATE 10/30/2015 ANDREW NATION MD Ot N20.0 CALCULUS OF KIDNEY 10/30/2015 ANDREW NATION MD Ot Z01.818 ENCOUNTER FOR OTHER PREPROCEDURAL EXAMIN 11/03/2015 CHAPIS WOLF, ANDREW Schreiber Ot N20.0 CALCULUS OF KIDNEY 11/03/2015 CHAPIS WOLF, ANDREW Schreiber Ot Z79.899 OTHER LONG-TERM (CURRENT) DRUG THERAPY 11/04/2015 CHAPIS WOLF, ANDREW Schreiber Ot N20.0 CALCULUS OF KIDNEY 11/04/2015 CHAPIS WOLF, ANDREW Schreiber Ot Z79.899 OTHER SOLE EDGE INKER MACHINE (CURRENT) DRUG THERAPY 11/04/2015 CHAPIS WOLF, ANDREW Schreiber Ot N20.0 CALCULUS OF KIDNEY 11/04/2015 CHAPIS WOLF, ANDREW Schreiber Ot Z79.899 OTHER SOLE EDGE INKER MACHINE (CURRENT) DRUG THERAPY 11/17/2015 Ot 140.0 MAL [...] 11/17/2015 CHAPIS WOLF, ANDREW Schreiber Ot V72.81 [id number] CARDIOVASCULAR 11/17/2015 ANDREW NATION MD Ot V74.8 [...] RECTUM 01/29/2016 JEFF LOUIS MD Ot Z79.01 SOLE EDGE INKER MACHINE (CURRENT) USE OF ANTICOAGULANT 02/01/2016 JEFF LOUIS MD Ot E11.9 TYPE 2 DIABETES MELLITUS WITHOUT COMPLIC 02/01/2016 JEFF LOUIS MD Ot I48.91 UNSPECIFIED ATRIAL FIBRILLATION 02/01/2016 JEFF LOUIS MD Ot K62.5 HEMORRHAGE OF ANUS AND RECTUM 02/01/2016 JEFF LOUIS MD, Ot Z79.01 LONG-TERM (CURRENT) USE OF ANTICOAGULANT 03/24/2016 TIN SOTO [...] PROSTATE 03/24/2016 ANDREW NATION MD Ot V72.81 PYCZ-CGN-JWASZAIOY CARDIOVASCULAR 03/24/2016 ANDREW NATION MD Ot V74.8 [...] Schreiber Ot I25.119 ATHSCL HEART DISEASE OF [place] COR ART W 04/26/2016 DAO SUTHERLANDRAFAL Ot [...] 04/26/2016 DAO SUTHERLAND, RAFAL Schreiber Ot Z79.84 LONG-TERM (CURRENT) USE OF ORAL HYPOGLYC 04/26/2016 DAO [...] TYPE 2 DIABETES MELLITUS WITHOUT COMPLIC 04/27/2016 [facility] RAFAL Schreiber Ot E78.00 PURE HYPERCHOLESTEROLEMIA, UNSPECIFIED 04/27/2016 GELLENDER DO, RAFAL Schreiber Ot E78.5 HYPERLIPIDEMIA, UNSPECIFIED 04/27/2016 [facility] RAFAL Schreiber Ot G47.30 SLEEP APNEA, UNSPECIFIED 04/27/2016 [facility] RAFAL Schreiber Ot I10 ESSENTIAL (PRIMARY) HYPERTENSION 04/27/2016 [facility], RAFAL Schreiber Ot I25.119 ATHSCL HEART DISEASE OF [place] COR ART W 04/27/2016 [facility], RAFAL Schreiber Ot I48.91 UNSPECIFIED ATRIAL FIBRILLATION 04/27/2016 [facility] DO, RAFAL Schreiber Ot K29.80 DUODENITIS WITHOUT BLEEDING 04/27/2016 [facility], RAFAL Schreiber Ot N39.0 URINARY TRACT INFECTION, SITE NOT SPECIF 04/27/2016 [facility], RAFAL Schreiber Ot R50.9 FEVER, UNSPECIFIED 04/27/2016 [facility], RAFAL Schreiber Ot R53.1 WEAKNESS 04/27/2016 [facility], RAFAL Schreiber Ot R74.8 ABNORMAL LEVELS OF OTHER SERUM ENZYMES 04/27/2016 [facility], RAFAL Schreiber Ot T46.2X1A POISONING BY OTH ANTIDYSRHYTHMIC DRUGS, 04/27/2016 [facility] RAFAL Ot Z23 ENCOUNTER FOR IMMUNIZATION 04/27/2016 [facility], RAFAL Schreiber Ot Z79.84 SOLE EDGE INKER MACHINE (CURRENT) USE OF ORAL HYPOGLYC 04/27/2016 [facility] Ot Z85.46 PERSONAL HISTORY OF MALIGNANT NEOPLASM O 04/27/2016 [facility] RAFAL Ot Z87.891 PERSONAL HISTORY OF NICOTINE DEPENDENCE 04/27/2016 [facility] Ot Z91.81 HISTORY OF FALLING 04/27/2016 [facility] Ot Z92.3 PERSONAL HISTORY OF IRRADIATION 04/27/2016 [facility], RAFAL Schreiber Ot Z95.1 PRESENCE OF AORTOCORONARY BYPASS GRAFT 04/27/2016 [facility] Ot Z95.5 PRESENCE OF CORONARY ANGIOPLASTY IMPLANT 04/27/2016 [facility], RAFAL Schreiber Ot D69.6 THROMBOCYTOPENIA, UNSPECIFIED 04/27/2016 [...] Schreiber Ot I25.119 ATHSCL HEART DISEASE OF [place] COR ART W 04/27/2016 AMARISDER DO, RAFAL [...] 04/27/2016 DAO SUTHERLAND, RAFAL Schreiber Ot Z79.84 LONG-TERM (CURRENT) USE OF ORAL HYPOGLYC 04/27/2016 DAO SUTHERLANDRAFAL Ot Z85.46 PERSONAL HISTORY OF MALIGNANT NEOPLASM O 04/27/2016 DAO SUTHERLANDRAFAL Ot Z87.891 PERSONAL HISTORY OF NICOTINE DEPENDENCE 04/27/2016 DAO SUTHERLANDRAFAL Ot Z91.81 HISTORY OF FALLING 04/27/2016 DAO DORAFAL Ot Z92.3 PERSONAL HISTORY OF IRRADIATION 04/27/2016 [facility] Ot Z95.1 PRESENCE OF AORTOCORONARY BYPASS GRAFT [...] SUTHERLANDRAFAL Ot I25.119 ATHSCL HEART DISEASE OF [place] COR ART W 04/27/2016 [facility] Ot I48.91 UNSPECIFIED ATRIAL FIBRILLATION 04/27/2016 [facility] Ot K29.80 DUODENITIS WITHOUT BLEEDING 04/27/2016 DAO SUTHERLANDRAFAL Ot N39.0 URINARY TRACT INFECTION, SITE NOT SPECIF 04/27/2016 DAO SUTHERLANDRAFAL Ot R50.9 FEVER, UNSPECIFIED 04/27/2016 DAO SUTHERLANDRAFAL Ot R53.1 WEAKNESS 04/27/2016 DAO SUTHERLANDRAFAL Ot R74.8 ABNORMAL LEVELS OF OTHER SERUM ENZYMES 04/27/2016 DAO SUTHERLANDRAFAL Ot Z23 ENCOUNTER FOR IMMUNIZATION 04/27/2016 [facility] Ot Z79.84 LONG-TERM (CURRENT) USE OF ORAL HYPOGLYC 04/27/2016 [facility] Ot Z85.46 PERSONAL HISTORY OF MALIGNANT NEOPLASM O 04/27/2016 DAO SUTHERLANDRAFAL Ot Z87.891 PERSONAL HISTORY OF NICOTINE DEPENDENCE 04/27/2016 DAO SUTHERLANDRAFAL Ot Z91.81 HISTORY OF FALLING 04/27/2016 DAO SUTHERLANDRAFAL Ot Z92.3 PERSONAL HISTORY OF IRRADIATION 04/27/2016 [facility] Ot Z95.1 PRESENCE OF AORTOCORONARY BYPASS GRAFT 04/27/2016 [facility] Ot Z95.5 PRESENCE OF CORONARY ANGIOPLASTY IMPLANT [...] MD Ot I25.119 ATHSCL HEART DISEASE OF [place] COR ART W 04/29/2016 RYAN SHETTY MD [...] DRUGS, 04/29/2016 RYAN SHETTY MD Ot Z79.84 LONG-TERM (CURRENT) USE OF ORAL HYPOGLYC 04/29/2016 RYAN [...] MD Ot I25.119 ATHSCL HEART DISEASE OF [place] COR ART W 05/02/2016 RYAN SHETTY MD [...] DRUGS, 05/02/2016 RYAN SHETTY MD Ot Z79.84 SOLE EDGE INKER MACHINE (CURRENT) USE OF ORAL HYPOGLYC 05/02/2016 RYAN [...] PROSTATE 07/14/2016 ANDREW NATION MD Ot V72.81 [id number]-[id number] CARDIOVASCULAR 07/14/2016 ANDREW NATION MD Ot V74.8 [...] MD Ot M54.5 LOW BACK PAIN 07/18/2016 RYNA SHETTY MD Ot R53.1 WEAKNESS 02/22/2017 Ot 786.2 COUGH 02/22/2017 Ot 785.1 PALPITATIONS 02/22/2017 JAVIER BELLO DO Ot V72.84 EXAM PRE-OPERATIVE NOS 02/22/2017 RYAN SHETTY MD Ot 268.9 VITAMIN D DEFICIENCY NOS 02/22/2017 RYAN SHETTY MD Ot 515 POSTINFLAM PULM FIBROSIS 02/22/2017 RYAN SEHTTY MD Ot 733.90 BONE CARTILAGE DIS NOS 02/22/2017 RYAN SHETTY MD Ot 786.52 PAINFUL RESPIRATION 02/22/2017 RYAN SHETTY MD Ot V45.82 PERCUTANEOUS TRANSLUM CORON ANGIOPLASTY 02/22/2017 Ot 185 MALIGN NEOPL PROSTATE 02/22/2017 Ot 592.0 CALCULUS OF KIDNEY 02/22/2017 ANDREW NATION MD Ot 185 MALIGN NEOPL PROSTATE 02/22/2017 ANDREW NATION MD Ot V72.81 [id number]-[id number]-[id number] CARDIOVASCULAR 02/22/2017 ANDREW NATION MD Ot V74.8 [...] NEOPLASM OF PROSTATE 03/01/[address] [facility], ALI FACP CCDS Ot E66.09 OTHER OBESITY DUE TO EXCESS CALORIES 03/01/2017 SAMUEL WOLF FACC, ALI FACP CCDS Ot E78.4 OTHER HYPERLIPIDEMIA 03/01/[address] [facility], ALI FACP CCDS Ot I10 ESSENTIAL (PRIMARY) HYPERTENSION 03/01/[address] [facility], ALI FACP CCDS Ot I48.0 PAROXYSMAL ATRIAL FIBRILLATION 03/01/[address] [facility], ALI FACP CCDS Ot I65.23 OCCLUSION [...] PROSTATE 03/08/2017 ANDREW NATION MD Ot V72.81 [id number]-[id number]-XTUJUKZZB CARDIOVASCULAR 03/08/2017 ANDREW NATION MD Ot V74.8 SCREEN-BACTERIAL DIS NEC 03/08/2017 TIN SOTO DO Ot 414.00 CORON ATHEROSCLER NOS TYPE VESSEL, NATIV 03/08/2017 TIN OSTO DO Ot 786.09 RESPIRATORY ABNORM NEC 03/08/2017 [...] MD Ot I25.10 ATHSCL HEART DISEASE OF [place] CORONARY 03/19/2017 RYAN SHETTY MD Ot I48.2 CHRONIC ATRIAL FIBRILLATION 03/19/2017 RYAN SHETTY MD Ot I51.7 CARDIOMEGALY 03/19/2017 RYAN SHETTY MD Ot K21.9 GASTRO-ESOPHAGEAL REFLUX DISEASE WITHOUT 03/19/2017 RYAN SHETTY MD Ot N40.0 BENIGN PROSTATIC HYPERPLASIA WITHOUT LOW 03/19/2017 RYAN SHETTY MD Ot R07.9 CHEST PAIN, UNSPECIFIED 03/19/2017 RYAN SHETTY MD Ot Z79.01 LONG-TERM (CURRENT) USE OF ANTICOAGULANT 03/19/2017 RYAN SHETTY MD Ot Z79.899 OTHER LONG-TERM (CURRENT) DRUG THERAPY 03/19/2017 RYAN SHETTY MD, [...] MD, Ot I25.10 ATHSCL HEART DISEASE OF [place] CORONARY 03/19/2017 RYAN SHETTY MD Ot I48.2 CHRONIC ATRIAL FIBRILLATION 03/19/2017 RYAN SHETTY MD, Ot I51.7 CARDIOMEGALY 03/19/2017 RYAN SHETTY MD, Ot K21.9 GASTRO-ESOPHAGEAL REFLUX DISEASE WITHOUT 03/19/2017 RYAN SHETTY MD Ot N40.0 BENIGN PROSTATIC HYPERPLASIA WITHOUT LOW 03/19/2017 RYAN SHETTY MD Ot R07.9 CHEST PAIN, UNSPECIFIED 03/19/2017 RYAN SHETTY MD, Ot Z79.01 LONG-TERM (CURRENT) USE OF ANTICOAGULANT 03/19/2017 RYAN SHETTY MD, Ot Z79.899 OTHER SOLE EDGE INKER MACHINE (CURRENT) DRUG THERAPY 03/19/2017 RYAN SHETTY MD, [...] STENOSIS OF BILATERAL LEE 03/30/[address] [facility], ALI FACP CCDS Ot R06.09 OTHER [...] FORMS OF DYSPNEA 04/05/[address] [facility], ALI FACP CCDS Ot R53.83 OTHER [...] MD Ot I25.10 ATHSCL HEART DISEASE OF [place] CORONARY 05/12/2017 Kwadwo CARRASCO MD Ot I44.60 [...] ADULT 05/12/2017 Kwadwo CARRASCO MD Ot Z79.01 SOLE EDGE INKER MACHINE (CURRENT) USE OF ANTICOAGULANT 05/12/2017 Kwadwo CARRASCO MD Ot Z79.899 OTHER LONG-TERM (CURRENT) DRUG THERAPY 05/12/2017 Kwadwo CARRASCO MD, [...] MD Ot I25.10 ATHSCL HEART DISEASE OF [place] CORONARY 05/25/2017 Kwadwo CARRASCO MD Ot I44.60 [...] ADULT 05/25/2017 Kwadwo CARRASCO MD Ot Z79.01 SOLE EDGE INKER MACHINE (CURRENT) USE OF ANTICOAGULANT 05/25/2017 Kwadwo CARRASCO MD Ot Z79.899 OTHER SOLE EDGE INKER MACHINE (CURRENT) DRUG THERAPY 05/25/2017 Kwadwo CARRASCO MD, [...] MD Ot I25.10 ATHSCL HEART DISEASE OF [place] CORONARY 06/05/2017 Kwadwo CARRASCO MD Ot I44.60 [...] ADULT 06/05/2017 Kwadwo CARRASCO MD Ot Z79.01 LONG-TERM (CURRENT) USE OF ANTICOAGULANT 06/05/2017 Kwadwo CARRASCO MD Ot Z79.899 OTHER LONG-TERM (CURRENT) DRUG THERAPY 06/05/2017 Kwadwo CARRASCO MD, Ot Z87.891 PERSONAL HISTORY OF NICOTINE DEPENDENCE 06/05/2017 Kwadwo CARRASCO MD Ot Z95.1 PRESENCE OF AORTOCORONARY BYPASS GRAFT 06/05/2017 Kwadwo CARRASCO MD Ot Z95.5 PRESENCE OF CORONARY ANGIOPLASTY IMPLANT 06/12/2017 Ot 785.1 PALPITATIONS 06/12/2017 CHETNA OWLF, PERNELL Fermin Ot C61 MALIGNANT NEOPLASM OF [...] MD Ot I25.119 ATHSCL HEART DISEASE OF [place] COR ART W 06/13/2017 Kwadwo CARRASCO MD [...] MD, Ot I25.119 ATHSCL HEART DISEASE OF [place] COR ART W 06/15/2017 Kwadwo CARRASCO MD [...] MD Ot I25.119 ATHSCL HEART DISEASE OF [place] COR ART W 06/21/2017 Kwadwo CARRASCO MD [...] MD Ot I25.10 ATHSCL HEART DISEASE OF [place] CORONARY 06/22/2017 Kwadwo CARRASCO MD Ot I44.60 [...] ADULT 06/22/2017 Kwadwo CARRASCO MD Ot Z79.01 SOLE EDGE INKER MACHINE (CURRENT) USE OF ANTICOAGULANT 06/22/2017 Kwadwo CARRASCO MD Ot Z79.899 OTHER SOLE EDGE INKER MACHINE (CURRENT) DRUG THERAPY 06/22/2017 Kwadwo CARRASCO MD, [...] MD Ot I25.10 ATHSCL HEART DISEASE OF [place] CORONARY 06/28/2017 Kwadwo CARRASCO MD Ot I44.60 [...] ADULT 06/28/2017 Kwadwo CARRASCO MD, Ot Z79.01 SOLE EDGE INKER MACHINE (CURRENT) USE OF ANTICOAGULANT 06/28/2017 Kwadwo CARRASCO MD, Ot Z79.899 OTHER SOLE EDGE INKER MACHINE (CURRENT) DRUG THERAPY 06/28/2017 Kwadwo CARRASCO MD, [...] MD Ot I25.119 ATHSCL HEART DISEASE OF [place] COR ART W 07/13/2017 RYAN SHETTY MD [...] UNSPECIFIED 07/13/2017 RYAN SHETTY MD, Ot Z79.84 SOLE EDGE INKER MACHINE (CURRENT) USE OF ORAL HYPOGLYC 07/13/2017 RYAN [...] 08/05/2017 CHAPIS WOLF, ANDREW Schreiber Ot V72.81 [id number]-[id number] CARDIOVASCULAR 08/05/2017 CHAPIS WOLF, ANDREW Schreiber Ot [...] I10 ESSENTIAL (PRIMARY) HYPERTENSION 08/05/[address] [facility], ALI FACP CCDS Ot I48.0 PAROXYSMAL [...] MD Ot I25.10 ATHSCL HEART DISEASE OF [place] CORONARY 08/05/2017 Kwadwo CARRASCO MD Ot I44.60 [...] ADULT 08/05/2017 Kwadwo CARRASCO MD Ot Z79.01 LONG-TERM (CURRENT) USE OF ANTICOAGULANT 08/05/2017 Kwadwo CARRASCO MD Ot Z79.899 OTHER LONG-TERM (CURRENT) DRUG THERAPY 08/05/2017 Kwadwo CARRASCO MD, [...] DO Ot I25.10 ATHSCL HEART DISEASE OF [place] CORONARY 08/06/2017 MAGDALENA CROWE DO Ot I48.91 [...] PROSTATE 08/06/2017 ANDREW NATION MD Ot V72.81 [id number]-[id number] CARDIOVASCULAR 08/06/2017 ANDREW NATION MD Ot V74.8 [...] MD Ot I25.10 ATHSCL HEART DISEASE OF [place] CORONARY 08/06/2017 Kwadwo CARRASCO MD Ot I44.60 UNSPECIFIED FASCICULAR BLOCK 08/06/2017 Kwadwo CARRASCO MD Ot I48.0 PAROXYSMAL ATRIAL FIBRILLATION 08/06/2017 Kwadwo CARRASCO MD, Ot K21.9 GASTRO-ESOPHAGEAL REFLUX DISEASE WITHOUT 08/06/2017 Kwadwo CARRASCO MD, Ot R00.0 TACHYCARDIA, UNSPECIFIED 08/06/2017 Kwadwo CARRASCO MD, Ot R00.1 BRADYCARDIA, UNSPECIFIED 08/06/2017 Kwadwo CARRASCO MD, Ot R53.83 OTHER FATIGUE 08/06/2017 Kwadwo CARRASCO MD, Ot Z68.34 BODY MASS INDEX (BMI) 34.0-34.9, ADULT 08/06/2017 Kwadwo CARRASCO MD, Ot Z79.01 SOLE EDGE INKER MACHINE (CURRENT) USE OF ANTICOAGULANT 08/06/2017 Kwadwo CARRASCO MD, Ot Z79.899 OTHER LONG-TERM (CURRENT) DRUG THERAPY 08/06/2017 Kwadwo CARRASCO MD, [...] culture - 07/11/17 16:40 Bacterial urine culture [id number] NRG COLONY COUNT >100,000/ML NRG FTX;REPORTABLE ESBL [...] - 07/11/17 17:08 Bacterial blood culture NG [facility] Influenza virus A and B antigen detection - 07/11/17 17:15 FLU RESULT NEGATIVE FOR INFLUENZA A AND B ANTIGENS BY IA [facility] Serum or plasma lactate measurement (moles/volume) - [...] FOR INFLUENZA A AND B ANTIGENS BY [facility] Complete blood count (CBC) with automated [...] Status Pt. Type Provider Facility Loc./Unit Complaint [id number] 08/05/2017 22:58:00 08/06/2017 00:40:00 DIS Emergency SEBASTIEN DO, MAGDALENA K [facility] ER COLD SYMPTOMS [id number] 07/11/2017 17:42:00 07/13/2017 11:30:00 DIS Inpatient RYAN SHETTY MD [facility] 4TH SEPSIS-UTI,CHEST PAIN- ANGINA,HYPOMAGNESEMIA [id number] 06/12/2017 10:43:00 06/13/2017 20:31:00 DIS Outpatient Kwadwo CARRASCO MD [facility] AF,SIGNIFICANT SYMPTOMATIC PAUSES [id number] 05/11/2017 07:30:00 05/11/2017 23:59:59 CLS Outpatient Kwadwo CARRASCO MD [facility] LONG-TERM SURVEILLANCE FOR AFIB [id number] 03/18/2017 22:15:00 03/19/2017 13:07:00 DIS Inpatient RYAN SHETTY MD [facility] ICU CHEST PAIN; HYPERTENSIVE URGENCY [id number] 03/09/2017 12:34:00 03/09/2017 23:59:59 CLS Outpatient SAMUEL WOLF FACDaja, MICHAEL SANTIAGO CCDS [facility] CARD RAMIREZ R06.09 [id number] 02/28/2017 07:12:00 02/28/2017 23:59:59 CLS Outpatient SAMUEL WOLF FACC, MICHAEL SANTIAGO CCDS [facility] CARD RAMIREZ R06.09 [id number] 07/18/2016 13:24:00 07/18/2016 15:18:00 DIS Outpatient RYNA SHETTY MD [facility] REHAB BACK PAIN; GENERALIZED WEAKNESS; FALLING EPISODES [id number] 05/27/2016 19:01:00 05/28/2016 06:15:00 DIS Outpatient JAMIL MONTERO APRN [facility] SLEEP ARRHYTHMLAS, EXCESSIVE DAYTIME SLEEPINESS [id number] 04/27/2016 09:15:00 05/02/2016 11:50:00 DIS Inpatient RYAN SHETTY MD [facility] 4TH SWB - FEVER,WEAKNESS [id number] 04/24/2016 10:01:00 04/27/2016 09:00:00 DIS Inpatient RAFAL DC DO [facility] 4TH FEVER [id number] 03/24/2016 14:48:00 03/24/2016 23:59:59 CLS Outpatient ZHANNA BENZ MD [facility] RAD CHEST PAIN,UNSPECIFIED [id number] 01/29/2016 07:42:00 01/29/2016 10:20:00 DIS Outpatient JEFF LOUIS MD [facility] SDC OCCULT POSITIVE STOOLS [id number] 01/27/2016 05:40:00 01/27/2016 16:01:00 DIS Outpatient JEFF LOUIS MD [facility] PREOP OCCULT POSITIVE STOOLS [id number] 11/17/2015 12:46:00 11/17/2015 23:59:59 CLS Outpatient ANDREW NATION MD [facility] RAD STONE [id number] 11/03/2015 05:59:00 11/03/2015 10:20:00 DIS Outpatient ANDREW NATION MD [facility] SDC RIGHT STONE [id number] 10/30/2015 05:41:00 10/30/2015 11:06:00 DIS Outpatient ANDREW NATION MD [facility] PREOP RIGHT STONE [id number] 10/28/2015 04:07:00 10/28/2015 06:12:00 DIS Emergency MAGDALENA CROWE DO [facility] ER BLOOD IN URINE [id number] 07/01/2015 00:10:00 07/01/2015 23:59:59 CLS Preadmit PERNELL BASILIO MD [facility] ONC [id number] 04/01/2015 09:27:00 06/30/2015 00:01:00 DIS Outpatient PERNELL BASILIO MD [facility] ONC [id number] 06/18/2015 23:59:00 06/18/2015 23:59:00 CAN Emergency MAGDALENA CROWE DO [facility] ER CHEST PAIN;A-FIB W/RVR [id number] 03/18/2015 19:50:00 03/19/2015 06:45:00 DIS Outpatient TIN SOTO DO [facility] SLEEP ARRHYTHMIAS ISCHEMIC HEART DISEASE HTN [id number] 02/26/2015 12:33:00 02/27/2015 11:35:00 DIS Inpatient JUAN J ALEMAN MD [facility] CSD AFIB, [id number] 01/28/2015 11:40:00 01/28/2015 23:59:59 CLS Outpatient BRITTANY SUTHERLAND TIN Kwadwo [facility] RT DYSPNEA ON EXERCTION, DYSPNEA,CAD [id number] 10/29/2014 08:59:00 12/04/2014 00:01:00 DIS Outpatient PERNELL BASILIO MD [facility] ONC [id number] 11/19/2014 17:44:00 11/19/2014 18:35:00 DIS Emergency ARIK CHOE MD [facility] ER ELEVATED HEART RATE [id number] 10/01/2014 06:00:00 10/01/2014 11:53:00 DIS Outpatient ANDREW NATION MD [facility] PROSTATE CANCER [id number] 09/24/2014 10:38:00 09/24/2014 23:59:59 CLS Outpatient ANDREW NATION MD [facility] PREOP PROSTATE CANCER [id number] 04/21/2014 12:24:00 04/23/2014 11:10:00 DIS Inpatient RYAN SHETTY MD [facility] 4TH DEHYDRATION [id number] 02/07/2014 19:28:00 02/07/2014 20:31:00 DIS Emergency [place] ANDERSON APRN [facility] ER ENLARGED TICK BITE [id number] 11/21/2013 08:26:00 11/21/2013 23:59:59 CLS Outpatient RYAN SHETTY MD [facility] RAD LOW ALKALINE PHOSPHATES,CP,CHEST WALL PAIN,VIT D D [id number] 10/08/2013 10:51:00 10/08/2013 18:01:00 DIS Outpatient SAMUEL WOLF FACC, ALI FACP CCDS [facility] CATH CP,CAD,HLP [id number] 08/20/2013 12:36:00 08/20/2013 16:30:00 DIS Outpatient JAVIER BELLO DO [facility] CHEST PAIN [id number] 08/14/2013 07:25:00 08/14/2013 23:59:59 CLS Outpatient JAVIER BELLO DO [facility] PREOP CHEST PAINS [id number] 04/10/2013 08:56:00 07/09/2013 00:01:00 DIS Outpatient ANGELITA DUDLEY [facility] CARD PALPITATIONS [id number] 01/06/2013 19:32:00 01/11/2013 11:50:00 DIS Inpatient RYAN SHETTY MD [facility] 4TH FEVER, NEUTROPENIA, POSSIBLE PNEUMONIA [id number] 01/04/2013 17:18:00 01/04/2013 23:59:59 CLS Outpatient [id number] 11/23/2012 13:01:00 11/23/2012 21:50:00 DIS Outpatient SAMUEL WOLF FACC, MICHAEL SANTIAGO CCDS [facility] CATH CAD,ANGINA, SOB,HTN,DM,HYPERLIPIDEMIA,FATIGUE,CABG, [id number] 11/15/2012 22:43:00 11/16/2012 16:00:00 DIS Inpatient RYAN SHETTY MD [facility] CSD CHEST PAIN [id number] 10/27/2012 09:58:00 10/27/2012 23:59:59 CLS Outpatient [id number] 10/27/2012 20:17:00 10/27/2012 21:59:00 DIS Emergency TOSHA BROOKS MD [facility] ER UNCONTROLABLE SHAKING [id number] 11/11/2017 07:06:00 Document Registration [id number] 03/24/2015 16:13:00 Document Registration [id number] 03/24/2015 16:12:00 Document Registration [id number] 03/24/2015 16:12:00 Document Registration [id number] 03/24/2015 16:12:00 Document Registration [id number] 09/24/2014 11:18:00 Document Registration [id number] 08/22/2014 11:54:00 Document Registration [id number] 07/10/2013 09:00:00 Document Registration [id number] 06/22/2011 13:38:00 Document Registration [id number] 06/08/2011 05:39:00 Document Registration [id number] 06/06/2011 07:41:00 Document Registration [id number] 05/31/2011 14:53:00 Document Registration [id number] 05/23/2011 16:08:00 Document Registration [id number] 05/15/2011 22:45:00 Document Registration [id number] 12/15/2010 11:21:00 Document Registration [id number] 10/12/2010 05:40:00 Document Registration [id number] 10/11/2010 09:02:00 Document Registration [id number] 04/20/2010 11:01:00 Document Registration [id number] 03/19/2015 07:46:46 ACT Document Registration [id number] 04/28/2017 09:29:56 04/28/2017 23:59:59 [facility] Outpatient Ryan Shetty
--- NOTE | 2017-11-13 15:36 | CARDIAC CATHETERIZATION ---
DATE OF SERVICE: 11/13/2017 HISTORY: The patient is a 77-year-old man with a history of coronary artery disease and coronary artery bypass surgery. He has been hospitalized with symptoms of unstable angina. Cardiac catheterization was carried out today after having obtained an informed consent. PROCEDURE: He was brought to the cardiac catheterization laboratory in a fasting state. Right groin was prepared and draped in the usual sterile fashion. Lidocaine 1% with local anesthesia. Modified Seldinger technique was used to advance a 5-Swazi sheath in right femoral artery. A 5-Swazi JL4 catheter was used for left coronary artery angiography. A 5-Swazi JR4 catheter for right coronary angiography. A 5-Swazi pigtail catheter was used for left heart catheterization, left ventricular angiography. A 5-Swazi JR4 catheter was used for angiography of the aortocoronary grafts. A 5-Swazi JUANITA catheter was used for angiography of the left internal mammary artery graft to left anterior descending artery. At the end of the procedure, angiography of the right femoral artery was carried out through the sheath. Mynx was used to achieve hemostasis. He tolerated the procedure well. HEMODYNAMICS: Left ventricular end-diastolic pressure following coronary angiography was 12 mmHg. There was no significant pressure gradient pullback across the aortic valve. Ascending aortic pressure was 121/80 with a mean of 49 mmHg. LEFT VENTRICULAR ANGIOGRAPHY: Left ventricular angiography was carried out in the right anterior oblique projection. Global left ventricular systolic function is normal. Left ventricular ejection fraction is 65 to 70%. There does not appear to be significant mitral regurgitation. CORONARY ANGIOGRAPHY: Left main coronary artery does not exhibit significant obstructive disease. Left anterior descending artery has 90% proximal stenosis and is occluded following the origin of the first septal traffic sign supervisor. The left circumflex artery has a long 80 to 90% stenosis in its proximal portion. The first obtuse marginal branch of the left circumflex artery origin is within this stenosed area. The first obtuse marginal branch is of a very small caliber (approximately 1 mm or less). The second obtuse marginal branch of the left circumflex artery has a prior to 60-70% ostial stenosis. The right coronary artery is dominant. It has multiple 30 to 40% stenoses throughout its course. SAPHENOUS VEIN GRAFT ANGIOGRAPHY: The more cephalic saphenous vein graft is to the second obtuse marginal branch. It is widely patent and is free of significant disease. It provides antegrade flow into the second obtuse marginal and a retrograde flow into the distal left circumflex. The more caudal graft is a saphenous vein graft to a diagonal branch. It is widely patent and does not exhibit significant disease. LEFT INTERNAL MAMMARY ARTERY GRAFT ANGIOGRAPHY: Left internal mammary artery graft to distal left anterior descending artery is widely patent and does not exhibit significant disease. There is good distal runoff. CONCLUSIONS: 1. Coronary artery disease primarily consisting of proximal to mid vessel occlusion of the left anterior descending and severe proximal disease of the left circumflex. The right coronary artery has multiple mild to moderate stenoses throughout its course. 2. Patent saphenous vein graft to second obtuse marginal branch, which also supplies retrograde flow into the distal left circumflex. 3. Patent saphenous vein graft to a diagonal branch of the left anterior descending artery. 4. Patent left internal mammary artery graft to distal left anterior descending artery. 5. Normal left ventricular end-diastolic pressure. 6. Normal left ventricular ejection fraction estimated to be 65 to 70%. 7. No significant mitral regurgitation. DISCUSSION AND RECOMMENDATIONS: Based on the results of the study, it appears appropriate to continue a conservative approach. We compared today's films to the ones done four years ago and there does not appear to be significant change in the coronary or graft anatomy. We are adding beta-blockers to the regimen to provide better control of heart rate and pacemaker potentially against bradycardia. We are discontinuing doxazosin to provide more room in blood pressure. We are continuing aspirin therapy. For chronic permanent atrial fibrillation, we are continuing stroke prophylaxis with apixaban. We discussed the findings today in detail with him and his . Job ID: [id number] DocumentID: [id number] Dictated Date: 11/13/2017 13:10:12 Interventionist Date: 11/13/2017 15:36:25 Dictated By: MICHAEL BAKER MD, MA, FACP, FACC, MTDD
[2017-11-13] MEDS ORDERED: TAMSULOSIN 0.4 MG (FLOMAX) CAP PO SCH (21:00)
[2017-11-13] MEDS: meTOprolol TARTRATE 50 MG (LOPRESSOR) TAB PO SCH (21:46)
[2017-11-13] MEDS: APIXABAN 5 MG (ELIQUIS) TABLET PO SCH (21:46)
[2017-11-13] MEDS: SIMvastatin 10 MG (ZOCOR) TAB PO SCH (21:46)
[2017-11-14 00:18] VITALS: BP 131/69
[2017-11-14 04:16] VITALS: BP 135/70
[2017-11-14 05:15] VITALS: BP 135/70
[2017-11-14 07:22] LABS: HEMOGLOBIN 14.6 G/DL (13.3-17.7); MEAN PLATELET VOLUME 11.2 FL (7.4-10.4); RED BLOOD COUNT 4.68 10^6/uL (4.35-5.85); RED CELL DISTRIBUTION WIDTH 15.1 % (10.0-14.5); WHITE BLOOD COUNT 4.6 10^3/uL (4.3-11.0)
[2017-11-14 07:42] LABS: BUN/CREATININE RATIO 9; CALCIUM 9.1 MG/DL (8.5-10.1); CARBON DIOXIDE 20 MMOL/L (21-32); CHLORIDE 112 MMOL/L (98-107); CREATININE SERUM 0.76 MG/DL (0.60-1.30); GFR ESTIMATED > 60; GLUCOSE 97 MG/DL (70-105); SODIUM 140 MMOL/L (135-145)
--- NOTE | 2017-11-14 08:00 | Progress Note-Cardiology ---
Cardiology SOAP Progress Note Subjective: Feels better today Activity around the floor has not caused chest pain Chronic mod shortness of breath and gen malaise No palp or syncope Objective: I&O/Vital Signs 11/13/17 11/14/17 11/14/17 11/14/17 21:00 00:18 01:00 04:16 Temp 98.0 97.8 Pulse 66 62 63 Resp 17 18 B/P (MAP) 131/69 (89) 135/70 (91) Pulse Ox 95 94 O2 Delivery Room Air Room Air Room Air 11/14/17 05:15 Temp 97.8 Pulse 63 Resp 18 B/P (MAP) 135/70 (91) Pulse Ox 94 O2 Delivery Room Air 11/14/17 00:00 Intake Total 640 ml Output Total 1750 ml Balance -1110 ml Weight (Pounds): 246 Weight (Ounces): 8.0 Weight (Calculated Kilograms): 111.308662 Constitutional: AAO x 3, well-developed, well-nourished Respiratory: No accessory muscle use; lungs clear to percussion, lungs clear to auscultation Cardiovascular: irregularly irregular, S1 and S2, systolic murmur (2/6 MSM at card base) Gastrointestional: No tender; soft; No guarding, No rebound; audible bowel sounds Extremities: No clubbing, No cyanosis, No significant edema Neurologic/Psychiatric: oriented x 3, grossly intact, power is 5/5 both on sides Skin: No rash on exposed areas, No ulcerations on exposed areas Results/Procedures: Labs Laboratory Tests 11/14/17 07:10: White Blood Count 4.6, Red Blood Count 4.68, Hemoglobin 14.6, Hematocrit 43, Mean Corpuscular Volume 91, Mean Corpuscular Hemoglobin 31, Mean Corpuscular Hemoglobin Concent 34, Red Cell Distribution Width 15.1H, Platelet Count 150, Mean Platelet Volume 11.2H, Sodium Level 140, Potassium Level 4.0, Chloride Level 112H, Carbon Dioxide Level 20L, Anion Gap 8, Blood Urea Nitrogen 7, Creatinine 0.76, Estimat Glomerular Filtration Rate > 60, BUN/Creatinine Ratio 9 , Glucose Level 97, Calcium Level 9.1 Laboratory Tests 11/13/17 06:40 11/14/17 07:10 A/P: Assessment: Chest discomfort without any evidence of ACS CAD. Card cath of 11/13/17 showed proximal to mid vessel occlusion of the left anterior descending and severe proximal disease of the left circumflex. The right coronary artery has multiple mild to moderate stenoses throughout its course. (Known to have mid RCA stent placed in 2010; no significant obstructive disease of RCA); Patent saphenous vein graft to second obtuse marginal branch, which also supplies retrograde flow into the distal left circumflex; Patent saphenous vein graft to a diagonal branch of the left anterior descending artery ; Patent left internal mammary artery graft to distal left anterior descending artery; Normal left ventricular end-diastolic pressure; Normal left ventricular ejection fraction estimated to be 65 to 70%; No significant mitral regurgitation. Cor and graft status essentially unchanged compared to a study of September 2013 Chronic fatigue, shortness of breath, and general malaise, likely mulifactorial (see below) ODETTE, treated with CPAP and followed by Dr Trejo H/o Lyme disease, managed by Dr Shetty SSS: PAF. Placed on amiodarone in May [address] Groves, for recurrent a fib. Amio stopped in early Apr 2016 for suspected amio toxicity. 3 runs of NSVT and 8 brief runs of NSVT/PAF on amulatory card monitoring of 04/03-04/10/17. 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 Symptoms are stable Severe hypertension-under fair control MPI of 02/28/17 showed no significant ischemia or infarction on SPECT images. LVEF 58% Echocardiogram of 03/09/17 showed LVEF 60-65%, dilated LA, mild MR and TR, PASP 35-40 mmHg, grade I lazo dysfunction Diastolic dysfunction of the left ventricle, as indicated by moderate elevation of left ventricular end-diastolic pressure at the time of cardiac catheterization of August 2007, prior to coronary artery bypass surgery. Normal left ventricular end diastolic pressure per cardiac catheterization carried out in September 2010. Perioperative transient ischemic attack following coronary artery bypass surgery , with no subsequent recurrence. Mild carotid arterial disease on carotid u/s of Jul 2016 Hyperlipidemia, being treated with niacin DM II Intolerance to statin therapy, which limits therapy for hyperlipidemia. Has failed multiple statins History of urolithiasis being managed by Dr. Hewitt. H/o prostate cancer treated with seed implants in August 2014 Gastric ulcerations with esophageal irritation, per endoscopy by Dr. Gerard in Jul 2013 Plan: * I discussed his cath findings with him and his in detail. Cor and graft status is unchanged compared to a cath of 4 yrs ago. LVEF and LVEDP are normal * Rapid heart rate may have been contributing to his symptoms. We have placed him back on beta-blockers. Heart rate is better controlled and symptoms have improved. We are continuing amlodipine and ARBs, but have stopped doxazosin to allow room on bp. Will add it back if needed * Close outpatient f/u is advised for now * He may need w/u for noncardiac causes of chest discomfort. This would be with Dr Shetty Clinical Quality Measures AMI/AHF: ASA po Prior to arrival: MICHAEL Diaz MD FACP FACC CCDS November 14, 2017 08:00
[2017-11-14] MEDS ORDERED: ASPI-999 PO (08:06)
--- NOTE | 2017-11-14 08:07 | Discharge Inst-Cardiology ---
Discharge Inst-Cardiac Discharge Medications New Medications: Aspirin (Aspirin) 81 Mg Tab.chew 81 MG PO DAILY, #90 TAB 3 Refills Continued Medications: Amlodipine Besylate (Amlodipine Besylate) 5 Mg Tablet 5 MG PO DAILY, TAB Apixaban (Eliquis) 5 Mg Tablet 5 MG PO BID, TAB Cholecalciferol (Vitamin D3) (Vitamin D3) 1,000 Unit Capsule 1000 UNIT PO BID, CAP Cyanocobalamin (Vitamin B-12) (Vitamin B-12) 1,000 Mcg Tablet.er 1000 MCG PO DAILY, TAB Dutasteride/Tamsulosin HCl (Dutasteride-Tamsulosin 0.5-0.4) 1 Each Cpmp.24hr 1 CAP PO HS, CAP Furosemide (Furosemide) 20 Mg Tablet 20 MG PO DAILY PRN for SWELLING, TAB Losartan Potassium (Losartan Potassium) 100 Mg Tablet 100 MG PO DAILY, TAB Metoprolol Tartrate (Metoprolol Tartrate) 100 Mg Tablet 50 MG PO BID, TAB TAKES 1/2 (100MG) TABLET Multivit-Min/FA/Lycopene/Lut (Centrum Silver Tablet) 1 Each Tablet 1 TAB PO DAILY, TAB Nitroglycerin (Nitroglycerin) 0.4 Mg Tab.subl 0.4 MG SL UD PRN for CHEST PAIN, TAB Omeprazole (Omeprazole) 20 Mg Capsule.dr 20 MG PO DAILY, CAP Oxybutynin Chloride (Oxybutynin Chloride ER) 15 Mg Tab.er.24 15 MG PO DAILY, TAB Pravastatin Sodium (Pravastatin Sodium) 20 Mg Tablet 20 MG PO DAILY, TAB Saxagliptin HCl (Onglyza) 5 Mg Tablet 5 MG PO DAILY, TAB Ubidecarenone (Coq-10) 100 Mg Capsule 100 MG PO HS, CAP Discontinued Medications: Doxazosin Mesylate (Doxazosin Mesylate) 1 Mg Tablet 1 MG PO BID, TAB Patient Instructions Patient Instructions: F/u with Dr Culver next week MICHAEL CULVER MD [facility] CCDS November 14, 2017 08:07
[2017-11-14 08:30] VITALS: BP 131/69
[2017-11-14] MEDS ORDERED: amLODIPine 5 MG (NORVASC) TAB PO SCH (09:00)
[2017-11-14] MEDS: LOSARTAN 100 MG (COZAAR) TABLET PO SCH (09:11)
[2017-11-14] MEDS: APIXABAN 5 MG (ELIQUIS) TABLET PO SCH (09:11)
[2017-11-14] MEDS: PANTOPRAZOLE 20 MG TABLET (PROTONIX) PO SCH (09:11)
[2017-11-14] MEDS: OXYBUTYNIN (DITROPAN) 5 MG TAB PO SCH (09:11)
[2017-11-14] MEDS: meTOprolol TARTRATE 50 MG (LOPRESSOR) TAB PO SCH (09:11)
[2017-11-14] MEDS: ASPIRIN E.C. 81 MG (ECOTRIN) TAB PO SCH (09:11)
--- NOTE | 2017-11-14 09:14 | Discharge Summary ---
Diagnosis/Chief Complaint Date of Admission November 11, 2017 at 08:00 Date of Discharge Discharge Date: November 14, 2017 Discharge Time: 09:10 Admission Diagnosis Admission Diagnosis ACCELERATED ANGINA HYPERTENSION ATRIAL FIBRILLATION DIABETES MELLITUS HYPERLIPIDEMIA GERD URINARY URGENCY Discharge Diagnosis ACCELERATED ANGINA HYPERTENSION ATRIAL FIBRILLATION DIABETES MELLITUS HYPERLIPIDEMIA GERD URINARY URGENCY Reason Hospital Visit This is a 77-year-old white male followed by Dr. Tobias, a history of coronary artery disease and bypass grafting in the past. He has been having over the last 6 months increased angina with playing golf and walking and occasionally with carrying things. He notes that Dr. Tobias has been well aware of that. Most often his chest discomfort has gone away when he sat down and rested. Yesterday he began having chest pain at rest. He did not have any nausea vomiting or diaphoresis. He does describe this as being similar to his chest pain from the past. He has had to take nitroglycerin part off and on in the last 6 months. Last night he began having chest discomfort without radiation he took 2 nitroglycerin with only marginal relief and then took 2 Tums. He went to sleep and awakened this morning with continued chest discomfort. He took 1 more nitroglycerin without relief this a.m. and then presented to the emergency room. At the time of my interview he has currently with just minimal discomfort. Discharge Summary Procedures: HEART CATHETERIZATION Consultations DR. BAKER Discharge Physical Examination Allergies: Coded Allergies: amiodarone (Unverified Allergy, Unknown, 06/12/17) ciprofloxacin (Verified Adverse Reaction, Mild, HALLUCINATIONS, 02/28/17) clonidine (Verified Adverse Reaction, Mild, HALLUCINATIONS, 02/28/17) Vitals & I&Os Vital Signs Date Time Temp Pulse Resp B/P (MAP) Pulse Ox O2 Delivery O2 Flow Rate FiO2 11/14/17 07:00 62 11/14/17 05:15 97.8 18 135/70 (91) 94 Room Air General Appearance: Alert, Oriented X3, Cooperative HEENT: Atraumatic, PERRLA Respiratory: Clear to Auscultation, Normal Air Movement Cardiovascular: Normal S1, Normal S2, Other (Atrial fibrillation) Abdominal: Normal Bowel Sounds, Soft Extremities: No Clubbing, No Cyanosis, No Edema, Normal Pulses Skin: No Rashes, No Breakdown, No Significant Lesion Neuro: Normal Gait, Normal Speech, Strength at 5/5 X4 Ext Psych/Mental Status: Mental Status NL, Mood NL Hospital Course ACCELERATED ANGINA HYPERTENSION ATRIAL FIBRILLATION DIABETES MELLITUS HYPERLIPIDEMIA GERD URINARY URGENCY ACCELERATED ANGINA - DEFER TO DR. BAKER - HEART CATHETERIZATION - SEE DR. BAKER'S HEART CATH NOTES BELOW HYPERTENSION - RESUMED HOME MEDICATIONS - ADJUSTED PER DR. BAKER - SEE DC MEDICATION SUMMARY BELOW ATRIAL FIBRILLATION - RESUME HOME MEDICATIONS - DEFER TO DR. BAKER DIABETES MELLITUS - RESUMED HOME MEDICATIONS HYPERLIPIDEMIA - RESUMED HOME MEDICATIONS GERD - PEPCID URINARY URGENCY - CHRONIC - CONTINUE HOME MEDICATIONS. DISCHARGE PT TO HOME TODAY. HEART CATH REPORT: CONCLUSIONS: 1. Coronary artery disease primarily consisting of proximal to mid vessel occlusion of the left anterior descending and severe proximal disease of the left circumflex. The right coronary artery has multiple mild to moderate stenoses throughout its course. 2. Patent saphenous vein graft to second obtuse marginal branch, which also supplies retrograde flow into the distal left circumflex. 3. Patent saphenous vein graft to a diagonal branch of the left anterior descending artery. 4. Patent left internal mammary artery graft to distal left anterior descending artery. 5. Normal left ventricular end-diastolic pressure. 6. Normal left ventricular ejection fraction estimated to be 65 to 70%. 7. No significant mitral regurgitation. DISCUSSION AND RECOMMENDATIONS: Based on the results of the study, it appears appropriate to continue a conservative approach. We compared today's films to the ones done four years ago and there does not appear to be significant change in the coronary or graft anatomy. We are adding beta-blockers to the regimen to provide better control of heart rate and pacemaker potentially against bradycardia. We are discontinuing doxazosin to provide more room in blood pressure. We are continuing aspirin therapy. For chronic permanent atrial fibrillation, we are continuing stroke prophylaxis with apixaban. We discussed the findings today in detail with him and his . Pending Labs Laboratory Tests 11/14/17 07:10: White Blood Count 4.6, Red Blood Count 4.68, Hemoglobin 14.6, Hematocrit 43, Mean Corpuscular Volume 91, Mean Corpuscular Hemoglobin 31, Mean Corpuscular Hemoglobin Concent 34, Red Cell Distribution Width 15.1, Platelet Count 150, Mean Platelet Volume 11.2, Sodium Level 140, Potassium Level 4.0, Chloride Level 112, Carbon Dioxide Level 20, Anion Gap 8, Blood Urea Nitrogen 7, Creatinine 0.76, Estimat Glomerular Filtration Rate > 60, BUN/Creatinine Ratio 9 , Glucose Level 97, Calcium Level 9.1 Discharge Instructions to patient/family Please see electronic discharge instructions given to patient. Discharge Medications Reviewed and agree with Discharge Medication list on patient's Discharge Instruction sheet Medication List: Active Scripts Active Aspirin 81 Mg Tab.chew 81 Mg PO DAILY Reported Oxybutynin Chloride ER (Oxybutynin Chloride) 15 Mg Tab.er.24 15 Mg PO DAILY Omeprazole 20 Mg Capsule.dr 20 Mg PO DAILY Amlodipine Besylate 5 Mg Tablet 5 Mg PO DAILY Metoprolol Tartrate 100 Mg Tablet 50 Mg PO BID TAKES 1/2 (100MG) TABLET Nitroglycerin 0.4 Mg Tab.subl 0.4 Mg SL UD PRN Pravastatin Sodium 20 Mg Tablet 20 Mg PO DAILY Coq-10 (Ubidecarenone) 100 Mg Capsule 100 Mg PO HS Vitamin B-12 (Cyanocobalamin (Vitamin B-12)) 1,000 Mcg Tablet.er 1,000 Mcg PO DAILY Centrum Silver Tablet (Multivit-Min/FA/Lycopene/Lut) 1 Each Tablet 1 Tab PO DAILY Vitamin D3 (Cholecalciferol (Vitamin D3)) 1,000 Unit Capsule 1,000 Unit PO BID Dutasteride-Tamsulosin 0.5-0.4 (Dutasteride/Tamsulosin HCl) 1 Each Cpmp.24hr 1 Cap PO HS Eliquis (Apixaban) 5 Mg Tablet 5 Mg PO BID Furosemide 20 Mg Tablet 20 Mg PO DAILY PRN Losartan Potassium 100 Mg Tablet 100 Mg PO DAILY Onglyza (Saxagliptin HCl) 5 Mg Tablet 5 Mg PO DAILY Clinical Quality Measures AMI/AHF: ASA po Prior to arrival: No DVT/VTE Risk/Contraindication: Risk Factor Score Per Nursin RFS Level Per Nursing on Admit: 4+=Very High RYAN LANDON MD November 14, 2017 09:14
[2017-11-14 12:30] VITALS: BP 129/70
== END 2017-11-14 16:20 | disposition home or self-care (01) | DRG 287 ==
LOC: EDUNIT# 06:33 → ER 06:34 → UNDOADMIN 08:00 → 4TH 08:00 → EDPENDDISTM 11-14 09:10
PROVIDERS: ADMIT Internal Medicine Cardiovascular Disease; ATTEND Internal Medicine Cardiovascular Disease
PROC: 4A023N7 Measurement of Cardiac Sampling and Pressure, Left Heart, Percutaneous Approach (ICD-10-PCS; principal; 2017-11-13)
PROC: B2151ZZ Fluoroscopy of Left Heart using Low Osmolar Contrast (ICD-10-PCS; 2017-11-13)
PROC: B2111ZZ Fluoroscopy of Multiple Coronary Arteries using Low Osmolar Contrast (ICD-10-PCS; 2017-11-13)
PROC: B2131ZZ Fluoroscopy of Multiple Coronary Artery Bypass Grafts using Low Osmolar Contrast (ICD-10-PCS; 2017-11-13)
PROC: B2181ZZ Fluoroscopy of Left Internal Mammary Bypass Graft using Low Osmolar Contrast (ICD-10-PCS; 2017-11-13)
DX: I25.110 Atherosclerotic heart disease of native coronary artery with unstable angina pectoris (principal); I48.0 Paroxysmal atrial fibrillation; R60.0 Localized edema; I10 Essential (primary) hypertension; E78.5 Hyperlipidemia, unspecified; I44.4 Left anterior fascicular block; I65.23 Occlusion and stenosis of bilateral carotid arteries; E11.9 Type 2 diabetes mellitus without complications; G47.33 Obstructive sleep apnea (adult) (pediatric); K21.9 Gastro-esophageal reflux disease without esophagitis; N39.41 Urge incontinence; R35.0 Frequency of micturition; M19.91 Primary osteoarthritis, unspecified site; K59.09 Other constipation; J30.2 Other seasonal allergic rhinitis; E66.9 Obesity, unspecified; Z68.33 Body mass index [BMI] 33.0-33.9, adult; Z95.1 Presence of aortocoronary bypass graft; Z95.5 Presence of coronary angioplasty implant and graft; Z95.0 Presence of cardiac pacemaker; Z91.19 Patient's noncompliance with other medical treatment and regimen; Z87.891 Personal history of nicotine dependence; Z86.73 Personal history of transient ischemic attack (TIA), and cerebral infarction without residual deficits; Z79.01 Long term (current) use of anticoagulants; Z87.11 Personal history of peptic ulcer disease; Z85.46 Personal history of malignant neoplasm of prostate; Z86.19 Personal history of other infectious and parasitic diseases
CPT/HCPCS: 36415; 71045; 80048; 80053; 83036; 83880; 84484; 85025; 85027; 85610; 93005; 93459; 96361; 96365

== ENCOUNTER → 2018-05-01 | Outpatient (CLI) | payer MEDICARE, BC ==
[~2018-05-01] MED LIST changes: -AMIO200T2 PO; +AMIO200T4 PO; -AMLO5TAB2 PO; +AMLO5TAB7 PO; +ASPI-999 PO; -BENZ-13 PO; +BENZ100C18 PO; -DUTA0.5C14 PO; +DUTA0.5C16 PO; -LOSA100T28 PO; +LOSA100T8 PO; +OMEP20CA12 PO
== END ==
LOC: CARD 10:51
PROVIDERS: ATTEND Internal Medicine Interventional Cardiology
DX: I77.89 Other specified disorders of arteries and arterioles (principal); R06.09 Other forms of dyspnea; I10 Essential (primary) hypertension; R53.83 Other fatigue; I48.0 Paroxysmal atrial fibrillation; I08.1 Rheumatic disorders of both mitral and tricuspid valves
CPT/HCPCS: 93306

== ENCOUNTER → 2018-06-04 | Outpatient (CLI) | payer MEDICARE, BC ==
--- NOTE | 2018-06-04 12:45 | Diagnostic Imaging Report ---
INDICATION: Cough. TECHNIQUE: Two-view chest, 12:45 p.m. CORRELATION STUDY: 11/11/2017. FINDINGS: Post-sternotomy changes with left-sided pacemaker are stable. Heart size and mediastinum are unchanged. Vasculature is within normal limits. Lung hansen are clear of infiltrate. Biapical pleural thickening is stable. Calcified granuloma in the lateral right lung base. Mild degenerative changes with bridging osteophytes in the thoracic spine. IMPRESSION: 1. Negative for acute abnormality in the chest. Dictated by: Dictated on workstation # [id number]
== END ==
LOC: RAD 12:13
PROVIDERS: ATTEND Family Medicine
DX: R05 Cough (principal)
CPT/HCPCS: 71046

== ENCOUNTER 2018-07-23 09:46 | Day surgery (SDC) | payer MEDICARE, BC ==
[~2018-07-23] VITALS: Ht 180.3 cm; Wt 111.1 kg
[2018-07-23] VITALS (7 sets, daily range): BP systolic 101–152; BP diastolic 43–85
[~2018-07-23 09:46] MED LIST changes: -AMLO5TAB7 PO; +AMLO5TAB9 PO; +LOSA100T57 PO; -LOSA100T8 PO; +NS IV 1000 ML 1,000 ML ONE
[2018-07-23] MEDS ORDERED: NS IV 1000 ML 1,000 ML IV SCH (10:00)
[2018-07-23] MEDS ORDERED: ASPI-586 PO (10:37)
[2018-07-23] MEDS ORDERED: EVOL420W SQ (10:37)
--- NOTE | 2018-07-23 10:39 | NUR ---
PATIENTS HAD A LIST OF MEDICATIONS AND THEY WERE ABLE TO VERIFY HIS LAST DOSES AND HOW HE TAKES EACH MEDICATION. THEY GET MOST OF THEIR MEDS BY MAIL SO I WAS UNABLE TO VERIFY WITH THE PHARMACY AT THIS TIME.
[2018-07-23] MEDS ORDERED: proPOfol 200 MG/20 ML (DIPRIVAN) VIAL IV ONE (11:11)
--- NOTE | 2018-07-23 12:28 | Anesthesia-Procedure Note ---
Procedures/Interventions Procedure Start/Stop/Diagnosis Date of Procedure: Jul 23, 2018 Start Time: 11:50 Referring Physician: Estella Preprocedural Diagnosis: AFib Brief History Called to cardiac laboratory assistant for scheduled cardioversion of pt in persistent A- Fib. Pt sitting on cart on arrival, monitors applied. Brief history obtained. NPO status verified. ASA 3. IV infusing left arm. Propofol bolus of 50mg given for sedation. Cardioversion completed successfully. Pt remained spont breathing. VSS. Report to care of RN at bedside. Stop Time: 12:00 Postprocedural Diagnosis: AFib MODESTO CARTER CRNA Jul 23, 2018 12:28
--- NOTE | 2018-07-23 14:15 | Cardioversion ---
Cardioversion PROCEDURE PHYSICIAN: Tyler Soria MD DATE OF PROCEDURE: 07/23/18 DIRECT EXTERNAL ELECTRICAL CARDIOVERSION: Indications: Atrial Fibrillation. Preoperative diagnoses: Atrial Fibrillation. Postoperative diagnosis: Sinus rhythm, Successful Electrical Cardioversion History: This is a 78-year-old gentleman with a dual-chamber permanent pacemaker. Persistent atrial fibrillation is noted. Anesthesia: By Anesthesia services Complications: None Specimen: None Contrast: 0 Flouroscopy: none Procedure Details: The patient was brought the laboratory coordinator after informed consent was taken, all the risks and complications were explained including the risk of stroke. Electrical cardioversion was carried out with anesthesia support with propofol. 200 joules of synchronized shock was delivered through external patches which promptly restored sinus rhythm. The patient tolerated the procedure well. Conclusions: 1.Successful Cardioversion. 2.Continue oral anticoagulation and rate controlling agent. 3.Follow up in office in 2-3 weeks. Tyler Soria MD, FHRS, CCDS Cardiac Electrophysiology Kwadwo SORIA MD Jul 23, 2018 2:15 pm
== END 2018-07-23 13:11 | disposition home or self-care (01) ==
LOC: CATH 09:46
PROVIDERS: ATTEND Internal Medicine Interventional Cardiology
DX: I48.1 Persistent atrial fibrillation (principal); E78.5 Hyperlipidemia, unspecified; I25.10 Atherosclerotic heart disease of native coronary artery without angina pectoris; E11.9 Type 2 diabetes mellitus without complications; R53.83 Other fatigue; R53.81 Other malaise; Z86.73 Personal history of transient ischemic attack (TIA), and cerebral infarction without residual deficits; Z95.1 Presence of aortocoronary bypass graft; Z87.891 Personal history of nicotine dependence; Z79.899 Other long term (current) drug therapy; Z95.0 Presence of cardiac pacemaker; Z79.01 Long term (current) use of anticoagulants; Z88.1 Allergy status to other antibiotic agents
CPT/HCPCS: 92960; 93005

== ENCOUNTER → 2018-11-12 | Outpatient (CLI) | payer MEDICARE, BC ==
[~2018-11-12] MED LIST changes: +ASPI-586 PO; +EVOL420W SQ; -NS IV 1000 ML 1,000 ML ONE
--- NOTE | 2018-11-12 15:33 | Diagnostic Imaging Report ---
PROCEDURE: CT lumbar spine without contrast. TECHNIQUE: Multiple contiguous axial images were obtained through the lumbar spine without the use of intravenous contrast. Sagittal and coronal reformations were then performed. Auto Exposure Controls were utilized during the CT exam to meet ALARA standards for radiation dose reduction. INDICATION: Low back pain radiating to the right hip. FINDINGS: Curvature and alignment of the lumbar spine are normal. Vertebral body heights are fairly well maintained. No acute compression fracture is identified. There appears to be broad-based disc/osteophyte complex indenting the ventral thecal sac at multiple levels. This is prominent at L3-4 where there appears to be central canal and bilateral lateral recess stenosis. There is also moderate bilateral neural foraminal stenosis. L4-5 level demonstrates broad-based disc/osteophyte complex resulting in central canal and bilateral lateral recess and bilateral neural foraminal stenosis. L5-S1 is without central canal narrowing but broad-based disc/osteophyte complex results in significant bilateral neuroforaminal stenosis, in particular on the right where the neural foramen is obliterated. Paraspinous tissues are unremarkable. IMPRESSION: Multilevel lumbar spondylosis with multilevel central canal and neuroforaminal stenosis described level by level above. There is a severe neuroforaminal stenosis bilaterally at L5-S1. No acute bony abnormality is detected. Dictated by: Dictated on workstation # [id number]
--- NOTE | 2018-11-12 18:42 | Diagnostic Imaging Report ---
PROCEDURE: CT pelvis without contrast. TECHNIQUE: Multiple contiguous axial images were obtained through the pelvis without the use of intravenous contrast. Sagittal and coronal reformations were performed. Auto Exposure Controls were utilized during the CT exam to meet ALARA standards for radiation dose reduction. DATE: November 12, 2018. INDICATION: 78-year-old male, right hip and low back pain. COMPARISON: CT abdomen and pelvis April 23, 2016. FINDINGS: There are bilateral sacroiliac arthritic changes. There is partial ankylosis across the right sacroiliac joint. There is no bone erosion. There is no prominent subchondral sclerosis. There is a superior endplate concavity of L5 without visible fracture line. There are disc degenerative changes at L4-L5 and L5-S1. There are mild bilateral facet degenerative changes at both levels as well. There are very mild degenerative changes of the bilateral hips. There is no identified acute fracture. There is no aggressive bone lesion. There are radiodensities at the level of the prostate which may relate to radiotherapy beads. There is diverticulosis without evidence of acute diverticulitis. There are atherosclerotic calcifications. There is no identified abnormally enlarged lymph node in the pelvis which meets size criteria for adenopathy. IMPRESSION: 1. 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 No bone erosion or prominent subchondral sclerosis. A seronegative spondyloarthropathy would be difficult to completely exclude given the presence of the partial sclerosis. This appearance is similar to April 2011. 2. No bone lesion concerning for bone metastasis. 3. Very mild osteoarthritis of both hips. 4. No acute fracture. Dictated by: Dictated on workstation # [id number]
== END ==
LOC: RAD 14:13
PROVIDERS: ATTEND Nurse Practitioner Family
DX: M48.07 Spinal stenosis, lumbosacral region (principal); M47.816 Spondylosis without myelopathy or radiculopathy, lumbar region; M53.3 Sacrococcygeal disorders, not elsewhere classified; M43.28 Fusion of spine, sacral and sacrococcygeal region; M16.0 Bilateral primary osteoarthritis of hip
CPT/HCPCS: 72131; 72192

== ENCOUNTER 2019-02-14 16:38 | Emergency (ER) | payer MEDICARE, BC ==
[~2019-02-14] VITALS: Ht 180.3 cm; Wt 111.1 kg
[~2019-02-14 16:38] MED LIST changes: +CYAN-41 PO; -CYAN10006 PO; -OMEP20CA12 PO; +OMEP20CA13 PO
[2019-02-14 17:12] LABS: BASOPHILS % (AUTO) 0 % (0-10); EOSINOPHILS # (AUTO) 0.1 10^3/uL (0.0-0.3); EOSINOPHILS % (AUTO) 1 % (0-10); HEMATOCRIT 45 % (40-54); LYMPHOCYTES # (AUTO) 2.2 X 10^3 (1.0-4.0); LYMPHOCYTES % (AUTO) 38 % (12-44); MEAN CORPUSCULAR HEMOGLOBIN 32 PG (25-34); MEAN CORPUSCULAR HGB CONC 34 G/DL (32-36); MEAN CORPUSCULAR VOLUME 95 FL (80-99); MEAN PLATELET VOLUME 11.7 FL (7.4-10.4); MONOCYTES % (AUTO) 16 % (0-12); NEUTROPHILS # (AUTO) 2.6 X 10^3 (1.8-7.8); NEUTROPHILS % (AUTO) 44 % (42-75); PLATELET COUNT 197 10^3/uL (130-400); RED CELL DISTRIBUTION WIDTH 14.7 % (10.0-14.5); WHITE BLOOD COUNT 5.8 10^3/uL (4.3-11.0)
[2019-02-14 17:18] LABS: INR 1.2 (0.8-1.4); PROTHROMBIN TIME PATIENT 15.8 SEC (12.2-14.7)
[2019-02-14 17:27] LABS: BUN/CREATININE RATIO 14; CALCIUM 10.1 MG/DL (8.5-10.1); CARBON DIOXIDE 24 MMOL/L (21-32); CHLORIDE 107 MMOL/L (98-107); CREATININE SERUM 0.86 MG/DL (0.60-1.30); GFR ESTIMATED > 60; GLUCOSE 104 MG/DL (70-105); MAGNESIUM 2.1 MG/DL (1.6-2.4); POTASSIUM 4.1 MMOL/L (3.6-5.0); SODIUM 140 MMOL/L (135-145)
[2019-02-14 17:28] LABS: ALANINE AMINOTRANSFERASE 23 U/L (0-55); ALBUMIN 4.6 GM/DL (3.2-4.5); ALKALINE PHOSPHATASE 44 U/L (40-136); BILIRUBIN,TOTAL 1.7 MG/DL (0.1-1.0); TOTAL PROTEIN 7.5 GM/DL (6.4-8.2)
--- NOTE | 2019-02-14 17:40 | Diagnostic Imaging Report ---
INDICATION: Dizziness, pacemaker, and arrhythmia. COMPARISON: 06/04/2018. FINDINGS: Frontal and lateral views of the chest demonstrate clear lungs bilaterally. The heart is normal. There is no pneumothorax. Osseous structures are stable. The pacemaker is in good position. Sternal wires are midline. IMPRESSION: No acute cardiopulmonary findings. Dictated by: Dictated on workstation # [id number]
--- NOTE | 2019-02-14 18:21 | ED General ---
General Chief Complaint: Dizziness/Syncope Stated Complaint: DIZZINESS,AFIB Nursing Triage Note: pt arrives form [facility]. pt has felt dizzy for the past 3 days. pt denies soa or chest pian. pt has history of going in and out of afib. Nursing Sepsis Screen: No Definite Risk Source of Information: Patient, Old Records Exam Limitations: No Limitations History of Present Illness Date Seen by Provider: Feb 14, 2019 Time Seen by Provider: 16:56 Initial Comments This 78-year-old gentleman presents to the emergency room with complaints of intermittent lightheadedness over the past 3 days. Lightheadedness does not seem to be dependent upon position. He has had lightheadedness in the lying, sitting, and standing positions. He cannot associate the lightheadedness with any particular activity, medication, or other trigger. He denies any syncope. He denies any chest pain, cough, or associated shortness of air. He does have a history of atrial fibrillation and has a pacemaker. His primary care providers Dr. Shetty. His obstetrician gynecologist is Dr. Soria. His primary rock cutter is Dr. Baker. Patient reports he has had routine carotid screening at Dr. Baker's office. He had cardioversion for atrial fibrillation in April. He has chronic lower extremity pitting edema which has increased slightly recently. He has a diabetes and has checked his blood sugar during these episodes. He denies any hypoglycemia. Allergies and Home Medications Allergies Coded Allergies: amiodarone (Unverified Allergy, Unknown, 06/12/17) ciprofloxacin (Verified Adverse Reaction, Mild, HALLUCINATIONS, 02/28/17) clonidine (Verified Adverse Reaction, Mild, HALLUCINATIONS, 02/28/17) Home Medications Amlodipine Besylate 5 Mg Tablet, 5 MG PO DAILY, (Reported) Apixaban 5 Mg Tablet, 5 MG PO BID, (Reported) Aspirin 81 Mg Tablet.dr, 81 MG PO DAILY, (Reported) Cholecalciferol (Vitamin D3) 1,000 Unit Capsule, 1,000 UNIT PO BID, (Reported) Cyanocobalamin (Vitamin B-12) 1,000 Mcg Tablet.er, 1,000 MCG PO DAILY, (Reported) Dutasteride/Tamsulosin HCl 1 Each Cpmp.24hr, 1 CAP PO HS, (Reported) Evolocumab 420 Mg/3.5 Ml Wear.injct, 420 MG SQ MONTHLY, (Reported) Furosemide 20 Mg Tablet, 20 MG PO DAILY PRN for SWELLING, (Reported) Losartan Potassium 100 Mg Tablet, 100 MG PO DAILY, (Reported) Metoprolol Tartrate 100 Mg Tablet, 100 MG PO BID, (Reported) Multivit-Min/FA/Lycopene/Lut 1 Each Tablet, 1 TAB PO DAILY, (Reported) Nitroglycerin 0.4 Mg Tab.subl, 0.4 MG SL UD PRN for CHEST PAIN, (Reported) Omeprazole 20 Mg Capsule.dr, 20 MG PO DAILY, (Reported) Oxybutynin Chloride 15 Mg Tab.er.24, 15 MG PO DAILY, (Reported) Saxagliptin HCl 5 Mg Tablet, 5 MG PO DAILY, (Reported) Ubidecarenone 100 Mg Capsule, 100 MG PO HS, (Reported) Patient Home Medication List Home Medication List Reviewed: Yes Review of Systems Review of Systems Constitutional: no symptoms reported EENTM: no symptoms reported Respiratory: no symptoms reported Cardiovascular: see HPI Gastrointestinal: no symptoms reported Genitourinary: no symptoms reported Musculoskeletal: no symptoms reported Skin: no symptoms reported Psychiatric/Neurological: No Symptoms Reported Hematologic/Lymphatic: No Symptoms Reported Immunological/Allergic: no symptoms reported Past Dyhnoql-Wlxgba-Iaeisu Hx Past Med/Social Hx: Reviewed Nursing Past Med/Soc Hx Patient Social History Alcohol Use: Denies Use Recreational Drug Use: No Type Used: Cigarettes Former Smoker, Quit: Jun 12, 1978 2nd Hand Smoke Exposure: No Recent Foreign Travel: No Contact w/Someone Who Travel: No Recent Infectious Disease Expo: No Recent Hopitalizations: No Physical Abuse: No Sexual Abuse: No Immunizations Up To Date Tetanus Booster (TDap): Unknown PED Vaccines UTD: No Date of Pneumonia Vaccine: Mar 29, 2017 Date of Influenza Vaccine: Apr 12, 2018 Seasonal Allergies Seasonal Allergies: Yes Past Medical History Surgeries: Yes (CABG,KIDNEY STONE SX X3,BILAT EYE IMPLANT/CATARACTS, PROSTATE SEED IMPLANTS) Cardiac, CABG, Coronary Stent, Eye Surgery, Gallbladder, Pacemaker, Renal Respiratory: Yes (SLEEP APNEA-CPAP) Pneumonia, Sleep Apnea Currently Using CPAP: Yes Currently Using BIPAP: No Cardiac: Yes (TRIPLE BYPASS, STENT, HX AFIB EPISODES) Angina, Atrial Fibrillation, Chronic Edema/Swelling, Coronary Artery Disease, High Cholesterol, Hypertension Neurological: Yes (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) TIA Reproductive Disorders: No Sexually Transmitted Disease: No HIV/AIDS: No Genitourinary: Yes (PROSTATE CANCER; PROSTATE ENLARGEMENT) Kidney Infection, Prostate Problems, Bladder Infection, Kidney Stones Gastrointestinal: Yes Gastroesophageal Reflux, Chronic Constipation, Polyps Musculoskeletal: Yes (MILD, lyme's disease) Arthritis Endocrine: Yes (Type II) Diabetes, Non-Insulin dep HEENT: Yes (BILATERAL CATARACT SURGERY) Cataract Loss of Vision: Denies Hearing Impairment: Hard of Hearing Cancer: Yes (PROSTATE SEEDS IMPLANTED 10/08) Prostate Did You Recieve Any Treatments: Yes What Type of Treatment Did You: Radiation Psychosocial: No Integumentary: No Blood Disorders: No Family Medical History Cardiovascular disease 19 FATHER, Diabetes mellitus G8 SISTER Cancer, Hypertension Physical Exam Vital Signs Vital Signs - First Documented 02/14/19 02/14/19 16:52 16:54 Temp 97.6 Pulse 67 Resp 18 B/P (MAP) 168/92 (117) Pulse Ox 99 O2 Delivery Room Air Capillary Refill : Less Than 3 Seconds Height, Weight, BMI Height: 5'11.00" Weight: 245lbs. 0.0oz. 111.251057nt; 34.2 BMI Method:Stated General Appearance: No Apparent Distress, WD/WN HEENT: PERRL/EOMI, Normal ENT Inspection, Pharynx Normal Neck: Normal Inspection; No Carotid Bruit, No JVD Respiratory: Lungs Clear, Normal Breath Sounds, No Accessory Muscle Use, No Respiratory Distress Cardiovascular: Regular Rate, Rhythm, No Murmur, Other (Moderate pitting edema equal bilaterally) Gastrointestinal: Normal Bowel Sounds, Non Tender, Soft Extremity: Non Tender, Swelling, Other (Moderate pitting edema equal bilaterally) Neurologic/Psychiatric: Alert, Oriented x3, No Motor/Sensory Deficits, Normal Mood/Affect, dye colorist formulator II-XII Norm as Tested Skin: Normal Color, Warm/Dry Progress/Results/Core Measures Suspected Sepsis Recent Fever Within 48 Hours: No Infection Criteria Present: None New/Unexplained Altered Menta: No Sepsis Screen: No Definite Risk SIRS Temperature:97.6 Pulse: 67 Respiratory Rate: 18 Laboratory Tests 02/14/19 17:00: White Blood Count 5.8 Blood Pressure 168 /92 Mean: 117 Laboratory Tests 02/14/19 17:00: Creatinine 0.86, INR Comment 1.2, Platelet Count 197, Total Bilirubin 1.7H Results/Orders Lab Results Laboratory Tests Test 02/14/19 17:00 Range/Units White Blood Count 5.8 4.3-11.0 10^3/uL Red Blood Count 4.72 4.35-5.85 10^6/uL Hemoglobin 15.0 13.3-17.7 G/DL Hematocrit 45 40-54 % Mean Corpuscular Volume 95 80-99 FL Mean Corpuscular Hemoglobin 32 25-34 PG Mean Corpuscular Hemoglobin Concent 34 32-36 G/DL Red Cell Distribution Width 14.7 H 10.0-14.5 % Platelet Count 197 130-400 10^3/uL Mean Platelet Volume 11.7 H 7.4-10.4 FL Neutrophils (%) (Auto) 44 42-75 % Lymphocytes (%) (Auto) 38 12-44 % Monocytes (%) (Auto) 16 H 0-12 % Eosinophils (%) (Auto) 1 0-10 % Basophils (%) (Auto) 0 0-10 % Neutrophils # (Auto) 2.6 1.8-7.8 X 10^3 Lymphocytes # (Auto) 2.2 1.0-4.0 X 10^3 Monocytes # (Auto) 1.0 0.0-1.0 X 10^3 Eosinophils # (Auto) 0.1 0.0-0.3 10^3/uL Basophils # (Auto) 0.0 0.0-0.1 10^3/uL Prothrombin Time 15.8 H 12.2-14.7 SEC INR Comment 1.2 0.8-1.4 Activated Partial Thromboplast Time 34 24-35 SEC Sodium Level 140 135-145 MMOL/L Potassium Level 4.1 3.6-5.0 MMOL/L Chloride Level 107 98-107 MMOL/L Carbon Dioxide Level 24 21-32 MMOL/L Anion Gap 9 5-14 MMOL/L Blood Urea Nitrogen 12 7-18 MG/DL Creatinine 0.86 0.60-1.30 MG/DL Estimat Glomerular Filtration Rate > 60 BUN/Creatinine Ratio 14 Glucose Level 104 70-105 MG/DL Calcium Level 10.1 8.5-10.1 MG/DL Corrected Calcium 8.5-10.1 MG/DL Magnesium Level 2.1 1.6-2.4 MG/DL Total Bilirubin 1.7 H 0.1-1.0 MG/DL Aspartate Amino Transf (AST/SGOT) 26 5-34 U/L Alanine Aminotransferase (ALT/SGPT) 23 0-55 U/L Alkaline Phosphatase 44 40-136 U/L Myoglobin 201.3 H 10.0-92.0 NG/ML Troponin I < 0.028 <0.028 NG/ML B-Type Natriuretic Peptide 91.3 <100.0 PG/ML Total Protein 7.5 6.4-8.2 GM/DL Albumin 4.6 H 3.2-4.5 GM/DL My Orders Orders - ARIK CHOE MD Cbc With Automated Diff (02/14/19 16:57) Magnesium (02/14/19 16:57) Ekg Tracing (02/14/19 16:57) Cardiac Profile 1 (02/14/19 16:57) Comprehensive Metabolic Panel (02/14/19 16:57) Myoglobin Serum (02/14/19 16:57) Protime With Inr (02/14/19 16:57) Partial Thromboplastin Time (02/14/19 16:57) O2 (02/14/19 16:57) Monitor-Rhythm Ecg Trace Only (02/14/19 16:57) Ed Iv/Invasive Line Start (02/14/19 16:57) Chest Pa/Lat (2 View) (02/14/19 17:09) BNP (02/14/19 17:15) Vital Signs/I&O 02/14/19 02/14/19 02/14/19 16:52 16:54 18:59 Temp 97.6 97.6 Pulse 67 67 Resp 18 18 B/P (MAP) 168/92 (117) 168/92 (117) Pulse Ox 99 98 98 O2 Delivery Room Air Room Air Room Air Capillary Refill : Less Than 3 Seconds Blood Pressure Mean: 117 Progress Note : Progress Note Workup was unremarkable for causes of lightheadedness. Pacemaker was interrogated and report was called from [employer]. Patient has had no episodes of tachycardia or A. fib since April. He had some short runs of nonsustained ventricular tachycardia in July and August. He had a 2 second episode of ventricular tachycardia in December. There've been no adverse events since then. Orthostatic blood pressures were as follows: Lying 155/81, 60 Sitting 149/76, 61 Standing 145/79, 66 Return precautions were discussed. Patient was dismissed in stable condition. ECG Initial ECG Impression Date: Feb 14, 2019 Initial ECG Impression Time: 16:52 Initial ECG Rate: 65 Comment Atrial paced rhythm with no ST elevation or depression. No abnormal intervals or axis deviation. Diagnostic Imaging Diagonstic Imaging: Xray Plain Films/CT/US/NM/MRI: chest Comments NAME: [facility]TT[facility] REC#: [id number] PT STATUS: REG ER : 1940 PHYSICIAN: ARIK CHOE MD ADMIT DATE: 02/14/19/ER Signed Date of Exam: 02/14/19 CHEST PA/LAT (2 VIEW) INDICATION: Dizziness, pacemaker, and arrhythmia. COMPARISON: 06/04/2018. FINDINGS: Frontal and lateral views of the chest demonstrate clear lungs bilaterally. The heart is normal. There is no pneumothorax. Osseous structures are stable. The pacemaker is in good position. Sternal wires are midline. IMPRESSION: No acute cardiopulmonary findings. Dictated by: Dictated on workstation # [id number] Dict: 02/14/19 1735 Trans: 02/14/19 1743 Interpreted by: ANKUR SOLO Electronically signed by: ANKUR SOLO 02/14/19 1743 Departure Impression Primary Impression: Lightheadedness Disposition: 01 HOME, SELF-CARE Condition: Stable Departure-Patient Inst. Decision time for Depature: 18:32 Referrals: RYAN SHETTY MD (PCP/Family) Primary Care Physician Patient Instructions: NO INSTRUCTIONS GIVEN Add. Discharge Instructions: Continue with your medications as prescribed. Stay well-hydrated. Follow-up with your primary care provider and/or rock cutter within the next 1- 2 weeks. Return to the emergency room if your symptoms are worsening or if you develop new symptoms such as chest pain, shortness of breath, urinary symptoms, vomiting, diarrhea, fever, etc. All discharge instructions reviewed with patient and/or family. Voiced und erstanding. Copy Copies To 1: RYAN SHETTY MD Copies To 2: MICHAEL BAKER MD [facility] ARIK CHOE MD Feb 14, 2019 18:21
[2019-02-14 18:59] VITALS: BP 168/92
[2019-02-16] MEDS ORDERED: DOXY100T2 PO (14:12)
== END 2019-02-14 18:59 | disposition home or self-care (01) ==
LOC: EDUNIT# 16:38 → ER 16:45
DX: R42 Dizziness and giddiness (principal); I10 Essential (primary) hypertension; E11.9 Type 2 diabetes mellitus without complications; E78.00 Pure hypercholesterolemia, unspecified; I25.10 Atherosclerotic heart disease of native coronary artery without angina pectoris; I48.91 Unspecified atrial fibrillation; G47.30 Sleep apnea, unspecified; K21.9 Gastro-esophageal reflux disease without esophagitis; Z99.89 Dependence on other enabling machines and devices; Z86.73 Personal history of transient ischemic attack (TIA), and cerebral infarction without residual deficits; Z85.46 Personal history of malignant neoplasm of prostate; Z87.442 Personal history of urinary calculi; Z95.0 Presence of cardiac pacemaker; Z88.8 Allergy status to other drugs, medicaments and biological substances; Z88.5 Allergy status to narcotic agent; Z88.1 Allergy status to other antibiotic agents; Z79.01 Long term (current) use of anticoagulants; Z79.82 Long term (current) use of aspirin; Z79.84 Long term (current) use of oral hypoglycemic drugs; Z87.891 Personal history of nicotine dependence; Z95.1 Presence of aortocoronary bypass graft; Z95.5 Presence of coronary angioplasty implant and graft; Z82.49 Family history of ischemic heart disease and other diseases of the circulatory system
CPT/HCPCS: 36415; 71046; 80053; 83735; 83874; 83880; 84484; 85025; 85610; 85730; 93005; 93041

== ENCOUNTER 2019-02-16 12:19 | Emergency (ER) | payer MEDICARE, BC | END 2019-02-16 14:18 | disposition home or self-care (01) | LOC: ER 12:19 ==

== ENCOUNTER → 2019-10-28 | Outpatient (CLI) | payer MEDICARE, BC ==
[~2019-10-28] MED LIST changes: -DUTA0.5C16 PO; +DUTA0.5C17 PO; -EVOL420W SQ; +EVOL420W2 SQ; -OMEP20CA13 PO; +OMEP20CA18 PO; +OXYB-52 PO; -OXYB10TA PO; +OXYB10TA29 PO; -OXYB15TA PO; +OXYB15TA19 PO; -OXYB5TAB PO; -TAMS0.4C98 PO; +TMSL.4C PO
--- NOTE | 2019-10-28 13:24 | Diagnostic Imaging Report ---
INDICATION: MRI planned. The patient's indwelling pacemaker device appeared intact, stable from comparison study 02/14/2019. No unattached lead. Calcified benign granuloma in the right mid lung laterally chronic. No noncalcified nodule. No failure, pneumonia effusion or pneumothorax. IMPRESSION: Stable chest. Dictated by: Dictated on workstation # [id number]
--- NOTE | 2019-10-28 14:18 | Diagnostic Imaging Report ---
PROCEDURE: MRI lumbar spine. TECHNIQUE: Multiplanar, multisequence MRI of the lumbar spine was performed without contrast. INDICATION: Lower back pain. COMPARISON: None. FINDINGS: Static alignment of the lumbar spine is maintained. There is no significant anteroretrolisthesis. There is no evidence of jumped facets. Vertebral body heights are maintained. There is no acute fracture. Marrow signal is normal throughout. There is multilevel intervertebral disc height loss as well as multilevel anterior and posterior disc bulging. Visualized portions of distal cord are unremarkable. There is no evidence cord edema. No abnormal intrathecal filling defects are seen. Pre and paravertebral soft tissue structures are unremarkable. Axial images demonstrate the following: T12-L1: There is no large disc bulge or focal protrusion. There is bilateral ligamentum flavum laxity and facet arthropathy. There is however no significant spinal canal or neuroforaminal stenosis. L1-L2: There is slight broad-based posterior disc bulge and mild bilateral facet arthropathy. There is however no significant spinal canal or neuroforaminal stenosis. L2-L3: There is broad-based posterior disc bulge and bilateral facet arthropathy. As a result, there is mild narrowing of spinal canal and bilateral neural foramen. L3-L4: There is mild broad-based posterior disc bulge and bilateral ligamentum flavum laxity and facet arthropathy. As a result, there is mild narrowing of spinal canal and bilateral neural foramen. L4-L5: There is broad-based posterior disc bulge and bilateral ligamentum flavum laxity and facet arthropathy. As a result, there is mild narrowing of the spinal canal and moderate narrowing of the bilateral neural foramen. L5-S1: There is mild broad-based posterior disc bulge and bilateral facet arthropathy. As a result, there is mild narrowing of the spinal canal and moderate narrowing of the bilateral neural foramen. IMPRESSION: 1. Mild multilevel degenerative changes of the lumbar spine. 2. No acute fracture or dislocation. Dictated by: Dictated on workstation # [id number]
== END ==
LOC: RAD 13:10
PROVIDERS: ATTEND Orthopaedic Surgery Orthopaedic Surgery of the Spine
DX: M47.816 Spondylosis without myelopathy or radiculopathy, lumbar region (principal)
CPT/HCPCS: 71045; 72148

== ENCOUNTER → 2019-11-04 | Outpatient (CLI) | payer MEDICARE, BC | LOC: CARD 13:45 | PROVIDERS: ATTEND Internal Medicine Cardiovascular Disease | DX: I25.10 Atherosclerotic heart disease of native coronary artery without angina pectoris (principal); I77.89 Other specified disorders of arteries and arterioles; E11.9 Type 2 diabetes mellitus without complications; I10 Essential (primary) hypertension; E78.5 Hyperlipidemia, unspecified; G47.33 Obstructive sleep apnea (adult) (pediatric); I48.0 Paroxysmal atrial fibrillation; I49.5 Sick sinus syndrome; Z95.1 Presence of aortocoronary bypass graft | CPT/HCPCS: 93306 ==

== ENCOUNTER → 2019-11-12 | Outpatient (CLI) | payer MEDICARE, BC ==
[~2019-11-12] VITALS: Ht 183 cm; Wt 117.0 kg
[~2019-11-12] MED LIST changes: +CATHETER FLUSH 10 ML SYR IV PRN; +REGADENOSON 0.4 MG/5 ML SYR (LEXISCAN) IV ONE
--- NOTE | 2019-11-12 17:22 | STRESS TEST ---
DATE OF SERVICE: 11/12/2019 RESTING AND POST REGADENOSON TECHNETIUM-99M TETROFOSMIN SPECT CT IMAGING ORDERING PHYSICIAN: Dr. Culver. PRIMARY PHYSICIAN: Dr. Shetty. CLINICAL DIAGNOSIS: Coronary artery disease. Baseline images were carried out after injection of 10.33 mCi of technetium-99m Tetrofosmin. This was followed by 0.4 mg regadenoson and 30.2 mCi of technetium-99m Tetrofosmin for stress imaging. The electrocardiogram showed sinus rhythm with right bundle-branch block. It did not change significantly with regadenoson infusion. The patient tolerated the procedure well. Review of images at rest and following stress indicates a transient perfusion defect in the inferolateral wall. Gated images show normal global left ventricular systolic function with normal regional wall motion. Left ventricular ejection fraction is calculated to be 84%. Left ventricular end diastolic volume is 81 mL. TID ratio is 1.47. CONCLUSIONS: 1. This study is suggestive of a small to moderate amount of inferolateral ischemia. 2. Normal global left ventricular systolic function with ejection fraction of 84%. 3. No regional wall motion abnormality is seen on this study. Job ID: [id number] DocumentID: [id number] Dictated Date: 11/12/2019 17:10:58 Rehab Consultant Date: 11/12/2019 17:21:45 Dictated By: MICHAEL CULVER MD, MA, FACP, FACC,
== END ==
LOC: CARD 07:35
PROVIDERS: ATTEND Internal Medicine Cardiovascular Disease
DX: I25.10 Atherosclerotic heart disease of native coronary artery without angina pectoris (principal); I65.29 Occlusion and stenosis of unspecified carotid artery; E11.9 Type 2 diabetes mellitus without complications; I10 Essential (primary) hypertension; E78.5 Hyperlipidemia, unspecified; G47.33 Obstructive sleep apnea (adult) (pediatric); I48.0 Paroxysmal atrial fibrillation; I49.5 Sick sinus syndrome; Z95.1 Presence of aortocoronary bypass graft
CPT/HCPCS: 78452; 93017

== ENCOUNTER 2019-11-29 07:09 | Day surgery (SDC) | payer MEDICARE, BC ==
[~2019-11-29] VITALS: Ht 180.3 cm; Wt 118.2 kg
[2019-11-29] VITALS (11 sets, daily range): BP systolic 108–155; BP diastolic 71–93
[~2019-11-29 07:09] MED LIST changes: -CATHETER FLUSH 10 ML SYR IV PRN; -REGADENOSON 0.4 MG/5 ML SYR (LEXISCAN) IV ONE
[2019-11-29] MEDS ORDERED: HEParin (CATH LAB) 2,000 ML IV ONE (07:15)
[2019-11-29] MEDS ORDERED: NS IV 1000 ML 1,000 ML ONE (07:15)
[2019-11-29] MEDS ORDERED: NS IV 1000 ML 1,000 ML IV SCH ×2 (07:15→09:26)
[2019-11-29] MEDS ORDERED: LIDOCAINE 1% INJ 20 ML 20 ML VIAL ONE (07:15)
--- OUTSIDE RECORDS SUMMARY | 2019-11-29 07:24 | XMS REPORT ---
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 [employer] Organization [employer] [facility] [employer] Address [address] [place] [address] Care Team Providers Care Nurse Supervisor Name Role Phone RYAN SHETTY Unavailable Ryan Shetty Unavailable Unavailable Ryan Shetty MD, [facility] Unavailable Unavailable SAMUEL WOLF [facility], [facility] CCD[facility] Unavailable UnavailRYAN Daniel MD Unavailable Unavailable JUDAH KHANNA MD Unavailable Unavailable RYAN SHETTY MD Unavailable Unavailable JAMIL MONTERO ADVERTISING OPERATIONS MANAGER Unavailable Unavailable TIN SOTO DO Unavailable Unavailable ZHANNA WORLEY MD Unavailable Unavailable RAFAL DC DO Unavailable Unavailable RAFAL DC DO Unavailable Unavailable PERNELL BASILIO MD Unavailable Unavailable ANDREW HEWITT MD Unavailable Unavailable ANDREW HEWITT MD Unavailable Unavailable MISSY WOLF, JEFF Fonseca Unavailable Unavailable MAGDALENA CROWE DO Unavailable Unavailable TOSHA BROOKS MD Unavailable Unavailable JOJO SALEH DEMURRAGE AGENT Unavailable Unavailable ANGELITA DUDLEY DEMURRAGE AGENT Unavailable Unavailable [place] ADVERTISING OPERATIONS MANAGER Unavailable Unavailable JAVIER BELLO DO Unavailable Unavailable SAMUEL WOLF [facility], [facility] Unavailable UnavailRyan Daniel Unavailable Unavailable ARIK CHOE MD Unavailable Unavailable JUAN J ALEMAN MD Unavailable Unavailable JUAN J ALEMAN MD Unavailable Unavailable Ryan Shetty PP Unavailable Ryan Shetty MD, [facility] Unavailable Ryan Shetty PP Unavailable Ryan Shetty MD, [facility] Unavailable ANDREW HEWITT MD Unavailable Unavailable MAGDALENA CROWE DO Unavailable Unavailable RYAN SHETTY MD Unavailable Unavailable [place] ADVERTISING OPERATIONS MANAGER Unavailable Unavailable SAMUEL WOLF [facility], ALI FACP CCDS Unavailable UnavailJEFF Patrick MD Unavailable Unavailable Kwadwo SORIA MD Unavailable Unavailable BENEDICTO SORIA MDWAN Unavailable Unavailable SAMUEL WOLF FAC, MICHAEL SANTIAGO CCDS Unavailable UnavailJAMIL Zarate ADVERTISING OPERATIONS MANAGER Unavailable Unavailable DRISS SUTHERLAND, JANEY Unavailable Unavailable CHETNA WOLF, PERNELL Fermin Unavailable Unavailable CHAPIS WOLF, ANDREW Schreiber Unavailable Unavailable ASH WOLF, JUAN J Suazo Unavailable Unavailable ASH WOLF, JUAN J Suazo Unavailable Unavailable ANGELITA DUDLEY DEMURRAGE AGENT Unavailable Unavailable BRITTANY DO, TIN M Unavailable Unavailable SENA WOLF, RYAN Schreiber Unavailable Unavailable EUGENIA DO, JAVIER Fonseca Unavailable Unavailable GELLENDER DO, RAFAL A Unavailable Unavailable GELLENDER DO, RAFAL A Unavailable Unavailable DEMAR WOLF, ZHANNA Suazo Unavailable Unavailable DAIJA WOLF, ARIK Rogers Unavailable Unavailable ONUR WOLF, TERESA Wilcox Unavailable Unavailable ONUR WOLF, TERESA Wilcox Unavailable Unavailable NAYLA WYNNE ADVERTISING OPERATIONS MANAGER Unavailable Unavailable MONICA ADVERTISING OPERATIONS MANAGER, [place] Suazo Unavailable Unavailable Unavailable Unavailable RODRIGO WOLF, PIERRE Suazo Unavailable Unavailable SAMUEL ASTUDILLO [facility], MICHAEL Unavailable Unavailable Unavailable Unavailable Unavailable Unavailable Unavailable Unavailable Unavailable Unavailable Unavailable Unavailable Allergies Normalized Allergy Reported Date of Reaction(s) Care Provider Facility Allergy Type classification allergen Allergy Onset Drug Allergy Unclassified * OTHER 07-07-2015 - no information Ryan Shetty (11 sources.) REACTION - SEE 26809 , [facility] ANSWER BOX (84509) (Work Phone: ) no information Unclassified AMINODORONE 03-18-2017 - no informat ion JUAN J ALEMAN , Not Available (14 sources.) (01886) Drug Allergy Amiodarone amiodarone 06-12-2017 - no information MIKAEL ELLISON Not Available (20 sources.) (19693) Drug Allergy cloNIDine cloNIDine 01-29-2016 - HALLUCINATIONS MICHAEL CULVER , Not Available (24 sources.) [facility] (57180) Medications Medication Ingredient Drug Dose Dates Status Sig Sig Care Class(es) (Normalized) (Original) Provid er amLODIPine amLODIPine Dihydropyri 5 mg no take 1 amlodipine 5 Ryan 5 mg oral dine informat tablet by mg tablet 1 Cranst tablet (11 Calcium ion mouth once Tablet(s) PO on sources.) Channel daily daily Other Rosa Phone: dexlansopra dexlansopra Proton Pump 60 mg 10-20-19 Complete take 1 Dexilant 60 Stepha zole 60 mg zole Inhibitor 18 - d capsule by mg capsule, elizabeth delayed 12-26-19 mouth once delayed Saleh release 18 daily release 1 Other oral Capsule(s) Phone: capsule (11 PO daily (853) sources.) [phone] dronedarone dronedarone Antiarrhyth 400 mg 02-27-20 Complete no Multaq 400 no 400 mg oral jone 19 d information mg tablet 1 name tablet (16 Tablet(s) PO sources.) BID per Dr. Soria 1 ml evolocumab PCSK9 140 no inject 1 mL Repatha no evolocumab Inhibitor mg/mL informat by SureClick name 140 mg/ml ion subcutaneous 140 mg/mL auto-inject injection subcutaneous or (11 every month pen injector sources.) 1 Milliliter(s ) SQ monthly nystatin Nystatin Polyene 03-19-20 Complete take 5 mL by nystjohn Gregory [id number] Antifungal 18 - d mouth four 100,[address] unt/ml oral 03-28-20 times daily unit/mL oral on suspension 18 suspension 5 Other (11 Milliliter(s Phone: sources.) ) PO QID predniSONE predniSONE no 40 mg 10-09-19 Complete take 2 pre dnisone Ryan 20 mg oral information 19 - d tablets by 20 mg tabl et Cranst tablet (7 10-13-19 mouth once 2 Tablet(s) on sources.) 19 daily at PO QAM take Other mealtime with food Phone: Problems Active Problems Problem Normalized Date Last Normalized Normalized Provider Fa cility Classification Problem(s) Recorded Problem Problem Sta tus Duration Other Abdominal Episodic Active RYAN SHETTY [facility] Via gastrointestin distension MD Moran al disorders (gaseous) Hospital - (12 sources.) [place] ([address]) Other liver Abnormal Episodic Active RAFAL [facility] Via diseases (24 levels of GELLENDO Luisa RAMIREZ sources.) other serum Hospital - enzymes [place] (04413) Other upper Allergic Chronic Active Ryan Shetty respiratory rhinitis 63222 , [facility] disease (11 Translations: (03206) (Work sources.) [ ALLERGIC Phone: RHINITIS] ) Allergic Allergy status Episodic Active RYAN SHETTY No t Available reactions (20 to other MD (23051) sources.) drugs, medicaments and biological substances status Translations: [ ALLERGY STATUS TO OTHER ANTIBIOTIC AGENT, DIARRHEA, ALLERGY STATUS TO OTHER ANTIBIOTIC AGENT, ALLERGY STATUS TO OTH DRUG/MEDS/BIOL SUB, ALLERGY STATUS TO NARCOTIC AGENT STATUS] Anxiety Anxiety state, Chronic Active RYAN SHETTY [facility] Via disorders (10 unspecified , MD Moran sources.) Hospital [facility] (91336) Hyperplasia of Benign Chronic Active RYAN SHETTY [facility] Via prostate (20 prostatic , MD Moran sources.) hyperplasia Hospital - without lower [place] urinary tract (18282) symptoms Other Body mass Chronic Active JUAN J ALEMAN , [facility] Via nutritional; index (BMI) MD Moran endocrine; and 33.0-33.9, [facility] disorders (7 (38840) sources.) Other Body mass Chronic Active MD LUNA [facility] Via nutritional; index (BMI) Luisa endocrine; and 34.0-34.9, [facility] disorders (9 (69404) sources.) Other Body mass Chronic Active MD LUNA [facility] Via nutritional; index (BMI) Luisa endocrine; and 35.0-35.9, [facility] disorders (10 (35457) sources.) Other Body Mass Chronic Active MICHAEL CULVER , [facility] Via nutritional; Index MD MARY Moran endocrine; and 36.0-36.9, [facility] disorders (6 (48763) sources.) Cardiac Bradycardia, Chronic Active MD LUNA Not Izabel ilable dysrhythmias unspecified (39619) (12 sources.) Translations: [ TACHYCARDIA, UNSPECIFIED, PAROXYSMAL ATRIAL FIBRILLATION] Cardiac arrest Cardiac Chronic Active MD LUNA [facility] a and arrest, cause Luisa ventricular unspecified [facility] fibrillation [place] (16 sources.) (98402) Other and Cardiomegaly Chronic Active RYAN SHETTY [facility] Via ill-defined MD Moran heart disease [facility] - (12 sources.) [place] (59141) Nonspecific Chest pain, Episodic Active RYAN SHETTY Not Available chest pain (25 unspecified , (61382) sources.) Translations: [ CHEST PAIN NEC, CHEST PAIN NOS, Chest wall pain] Other Constipation, Episodic Active ARIK [facility] Via gastrointestin unspecified Luisa CHOE al disorders Hospital - (10 sources.) [place] (39203) 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 Active RYANBryan SHETTY Not Available atherosclerosi MD fabi (62161) s and other s of heart disease unspecified (21 sources.) type of vessel, [place] or graft Translations: [ OLD MYOCARDIAL INFARCT, AORTOCORONARY BYPASS, CORONARY ATHEROSCLEROSI S OF HOH CORON, ATHSCL HEART DISEASE OF HOH CORONARY , CHRONIC TOTAL OCCLUSION OF CORONARY KASIE, CORONARY ATHEROSCLEROSI S OF HOH CORON, ATHSCL HEART DISEASE OF HOH COR ART W, AORTOCORONARY BYPASS, ATHSCL HEART DISEASE OF HOH COR ART W] Residual Dependence on Chronic Active ARIK [facility] Via codes; other enabling Luisa CHOE unclassified machines and MD Hospital - (6 sources.) devices [place] (29976) Other Disorders of Chronic Active RYAN SHETTY Not Available nutritional; magnesium MD (58445) endocrine; and metabolism metabolic disorders (5 sources.) Gastritis and Duodenitis Episodic Active RAFAL [facility] Via duodenitis (12 without GELLENDER , DO Moran sources.) bleeding Hospital [facility] (63038) Other Encounter for Episodic Active ANDREW HEWITT [facility] Via aftercare (20 follow-up MD Moran sources.) examination Hospital - after [place] completed (79599) treatment for conditions other than malignant neoplasm Translations: [ Encounter for follow-up examination after completed treatment for conditions other than malignant neoplasm] Maintenance Encounter for Chronic Active PERNELL BASILIO [facility] Via chemotherapy; radiotherapy MD Moran radiotherapy Hospital - (11 sources.) [place] (59290) Residual Family history Episodic Active ARIK [facility] Via codes; of ischemic Luisa CHOE unclassified heart disease Hospital - (6 sources.) and other [place] diseases of (13957) the circulatory system Fluid and Fluid Episodic Active RYAN SHETTY Not Avai lable electrolyte overload, MD (47905) disorders (23 unspecified sources.) Translations: [ HYPOPOTASSEMIA , DEHYDRATION] Gastroduodenal Gastric ulcer, Chronic Active JAVIER BELLO , Not Available ulcer (8 unspecified as DO (86089) sources.) acute or chronic, without mention of hemorrhage or perforation, without mention of obstruction Congestive Heart failure, Chronic Active ALI SAMUEL , Not Available heart failure; unspecified FACDaja (00990) nonhypertensiv Translations: e (17 [ UNSPECIFIED sources.) DIASTOLIC (CONGESTIVE) HEART] Gastrointestin Hemorrhage of Episodic Active JEFF LOUIS [facility] Via al hemorrhage anus and MD Moran (12 sources.) rectum [facility] (61533) Other injuries History of Episodic Active RAFAL [facility] Vi a and conditions falling DO Luisa DC due to Hospital - external [place] causes (24 (42977) sources.) Other diseases Hydronephrosis Episodic Active Marian CLEMONS O [facility] Via of kidney and with renal and Luisa ureters (20 ureteral Hospital - sources.) calculous [place] obstruction (53634) Other Hypomagnesemia Chronic Active RYAN SHETTY [facility] Via nutritional; , MD Moran endocrine; and Hospital - metabolic [place] disorders (15 (55231) sources.) Other ear and Impacted Episodic Active no name Ryan workman sense organ cerumeMD nancy Preedo (31940) disorders (2 bilateral sources.) Influenza (12 Influenza due Episodic Active MAGDALENA CROWE DO [facility] Via sources.) to Luisa unidentified [facility] influenza [place] virus with (89670) other respiratory manifestations Other Intestinal Chronic Active ALI SAMUEL , Not Avai lable nutritional; disaccharidase [facility] (15840) endocrine; and deficiencies metabolic and disorders (13 disaccharide sources.) malabsorption Deficiency and Iron Chronic Active Ryan Shetty other anemia deficiency 63611 , [place] (20 sources.) anemia (11634) (Work secondary to Phone: blood loss (chronic) ) Translations: [ Iron deficiency anemia secondary to blood loss (chronic), Iron deficiency anemia secondary to blood loss (chronic)] Other terminal clerk Episodic Active JEFF LOUIS , Not Izabel ilable aftercare (22 (current) use (66918) sources.) of anticoagulants Other jail Episodic Active ARIK [facility] Via aftercare (6 (current) use Luisa CHOE sources.) of aspirin [facility] (79772) Other terminal clerk Episodic Active RAFAL [facility] Via aftercare (13 (current) use DO Luisa DC sources.) of oral [facility] hypoglycemic [place] drugs (59618) Cancer of Malignant Chronic Active ANDREW CHAPIS , Not Avai lable prostate (24 neoplasm of (34199) sources.) prostate Translations: [ MALIGN NEOPL PROSTATE] Substance-rela Nicotine Chronic Active [place] [facility] [facility] Vi a merline disorders dependence, Luisa (3 sources.) cigarettes, Hospital - uncomplicated [place] (39140) Heart valve Nonrheumatic Chronic Active RYAN SHETTY [facility] Via disorders (26 mitral (valve) , MD Moran sources.) insufficiency Hospital - Translations: [place] [ RHEUMATIC (14818) DISORDERS OF BOTH MITRAL AND T] Other Obesity Chronic Active Ryanbryan Shetty Ryan Nemesio anston nutritional; Translations: 30589 , [facility] endocrine; and [ OBESITY] (65880) (Work metabolic Phone: disorders ( sources.) ) Other Obesity, Chronic Active MD LUNA [facility] Via nutritional; unspecified Luisa endocrine; and Hospital - metabolic [place] disorders (20 (43885) sources.) Residual Obstructive 11-05-2019 - Chronic Active JAMIL [facility] Via codes; sleep apnea [place] Luisa unclassified (adult) Hospital - (21 sources.) (pediatric) [place] (36704) Residual Obstructive Chronic Active TIN SOTO , [facility] V ia codes; sleep apnea DO Luisa unclassified (adult)([facility] - (9 sources.) mickey) [place] () 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 ALI DELACRUZ MMAD , Not Available 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 (23 without sources.) mention of cerebral infarction Translations: [ OCCLUSION AND STENOSIS OF BILATERAL LEE, OCCLUSION AND STENOSIS OF UNSPECIFIED CA] Other Other Episodic Active JUAN J ALEMAN [facility] Via gastrointestin constipation MD Luisa soler disorders Hospital - (16 sources.) [place] (50286) Other Other Chronic Active MD LUNA [facility] Via nutritional; disorders of Luisa endocrine; and intestinal Hospital - metabolic carbohydrate [place] disorders (14 absorption (77217) sources.) Other Other fecal Episodic Active JEFF LOUIS , [facility] V ia gastrointestin abnormalities MD Luisa soler disorders Hospital - (12 sources.) [place] (70097) Other lower Other forms of Episodic Active RYAN SHETTY Not Available respiratory dyspnea , (07567) disease (25 sources.) Other Other long Episodic Active ANDREW CHAPIS , Not Izabel ilable aftercare (21 term (current) (30237) sources.) drug therapy Other Other obesity Chronic Active MD LUNA [facility] Vi a nutritional; Luisa endocrine; and Hospital - metabolic [place] disorders (15 (91472) sources.) Other Other obesity Chronic Active ALI SAMUEL [facility] V ia nutritional; due to excess MD MARY Moran endocrine; and calories Hospital - metabolic [place] disorders (22 (35509) sources.) Deficiency and Other Chronic Active RYAN SHETTY Not Available other anemia pancytopenia MD (13208) (5 sources.) Other lower Other Episodic Active TIN SOTO [facility] Vi a respiratory respiratory DO Luisa disease (12 abnormalities Hospital - sources.) [place] (41161) Other upper Other seasonal Chronic Active JUAN J ALEMAN [facility] Via respiratory allergic MD Moran disease (16 rhinitis Hospital - sources.) [place] (19596) Other Other 11-05-2019 - Chronic Active DIANE [facility] V ia circulatory specified MD Luisa SORIA disease (12 disorders of Hospital - sources.) arteries and [place] arterioles (64620) Other Pain in left Episodic Active MD LUNA [facility] Via non-traumatic hip [facility] joint Hospital - disorders (14 [place] sources.) (63269) Cardiac Palpitations Episodic Active ANGELITA BAIWILDA Not A vailable dysrhythmias Translations: (25967) (22 sources.) [ TACHYCARDIA NOS, BRADYCARDIA, UNSPECIFIED, TACHYCARDIA, UNSPECIFIED] Residual Patient's Episodic Active JUAN J ALEMAN [facility] Via codes; noncompliance MD Moran unclassified with other Hospital - (7 sources.) medical [place] treatment and (80897) regimen Coronary Percutaneous 11-05-2019 - Episodic Active RYAN SINGH TON Not Available atherosclerosi transluminal MD (61806) s and other coronary heart disease angioplasty (28 sources.) status Translations: [ ATHSCL HEART DISEASE OF HOH COR ART W, PRESENCE OF CORONARY ANGIOPLASTY IMPLANT, PRESENCE OF AORTOCORONARY BYPASS GRAFT, ATHSCL HEART DISEASE OF HOH COR ART W, AORTOCORONARY BYPASS, PERCUTANEOUS TRANSLUM CORON ANGIOPLASTY , CORON ATHEROSCLER NOS TYPE VESSEL, NATIV, AORTOCORONARY BYPASS, ATHSCL HEART DISEASE OF HOH CORONARY , PRESENCE OF CORONARY ANGIOPLASTY IMPLANT, PRESENCE OF AORTOCORONARY BYPASS GRAFT, PERCUTANEOUS TRANSLUM CORON ANGIOPLASTY , ATHSCL HEART DISEASE OF HOH COR ART W] Other and Personal Episodic Active RYAN SHETTY [facility] Via unspecified history of , MD Moran benign colonic polyps Hospital - neoplasm (16 [place] sources.) (78157) Residual Personal Episodic Active RAFAL Not Available codes; history of DO DAO (90457) unclassified irradiation (21 sources.) Cancer of Personal Episodic Active RAFAL Not Available prostate (24 history of GELLENDER , DO (40671) sources.) malignant neoplasm of prostate Screening or Personal Episodic Active RYAN SHETTY Not A vailable history of history of , (65322) mental health nicotine and substance dependence abuse (24 Translations: sources.) [ HISTORY OF TOBACCO USE] Other Personal Episodic Active [place] [facility] Via gastrointestin history of Luisa al disorders other diseases Hospital - (3 sources.) of the [place] digestive (31395) system Other Personal Episodic Active JUAN J ALEMAN , [facility] Via infections; history of MD Moran including other Hospital - parasitic (25 infectious and [place] sources.) parasitic (73868) diseases Gastroduodenal Personal Episodic Active JUAN J ALEMAN [facility] Via ulcer (except history of MD Moran hemorrhage) peptic ulcer Hospital - (16 sources.) disease [place] (00177) Other lower Personal Episodic Active RYAN SHETTY [facility] Vi a respiratory history of MD Luisa (16 pneumonia Hospital - sources.) (recurrent) [place] (22457) Other Personal Episodic Active no name no informatio n circulatory history of disease (21 transient sources.) ischemic attack (TIA), and cerebral infarction without residual deficits Other Personal Episodic Active MICHAEL CULVER , Not Availa ble circulatory history of MD HERNANDEZ (00885) disease (22 transient sources.) ischemic attack (TIA), and cerebral infarction without residual deficits Poisoning by Poisoning by Episodic Active RAFAL [facility] Vi a other other DO Luisa DC medications antidysrhythmi Hospital - and drugs (14 c drugs, [place] sources.) accidental (12409) (unintentional ), subsequent encounter Translations: [ POISONING BY OTH ANTIDYSRHYTHMI C DRUGS, ] Other lower Postinflammato Chronic Active RYAN SHETTY [facility] Via respiratory ry pulmonary , MD Moran disease (9 fibrosis Hospital - sources.) [place] (34028) Coronary Presence of no information Active MICHAEL CULVER , No t Available atherosclerosi aortocoronary MD HERNANDEZ (94027) s and other bypass graft heart disease Translations: (26 sources.) [ PRESENCE OF CORONARY ANGIOPLASTY IMPLANT, ATHSCL HEART DISEASE OF HOH COR ART W, PRESENCE OF AORTOCORONARY BYPASS GRAFT, ATHSCL HEART DISEASE OF HOH CORONARY , CORONARY ATHEROSCLEROSI S DUE TO CALCIFIE, CHRONIC TOTAL OCCLUSION OF CORONARY KASIE, AORTOCORONARY BYPASS, CORONARY ATHEROSCLEROSI S OF HOH CORON, PERCUTANEOUS TRANSLUM CORON ANGIOPLASTY , CORON ATHEROSCLER NOS TYPE VESSEL, NATIV, ATHSCL HEART DISEASE OF HOH COR ART W, AORTOCORONARY BYPASS, CORONARY ATHEROSCLEROSI S OF HOH CORON, PERCUTANEOUS TRANSLUM CORON ANGIOPLASTY , PRESENCE OF AORTOCORONARY BYPASS GRAFT, ATHSCL HEART DISEASE OF HOH CORONARY , PRESENCE OF CORONARY ANGIOPLASTY IMPLANT, ATHSCL HEART DISEASE OF HOH COR ART W] Osteoarthritis Primary Chronic Active JUAN J ALEMAN [facility] Via (25 sources.) osteoarthritis MD Moran , unspecified Hospital - site [place] Translations: (49121) [ BILATERAL PRIMARY OSTEOARTHRITIS OF HIP] Septicemia Sepsis due to Episodic Active RYAN SHETTY [facility] Via (except in anaerobes , MD Moran labor) (3 Hospital - sources.) [place] (93006) Residual Sleep apnea Chronic Active [place] codes; Translations: 10028 MD [facility] unclassified [ Sleep apnea] (68312) (Work (11 sources.) Phone: ) Residual Sleep apnea, Chronic Active RAFAL [facility] Via codes; unspecified DO Luisa DC unclassified Hospital - (16 sources.) [place] (47865) Spondylosis; 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 Active NAYLA SLATERIS [facility] Via intervertebral without Luisa disc myelopathy or Hospital - disorders; radiculopathy, [place] other back lumbar region (32214) problems (6 sources.) Coagulation Thrombocytopen Chronic Active RYAN SHETTY Not Available and urias MD (98169) hemorrhagic unspecified disorders (23 Translations: sources.) [ THROMBOCYTOPEN IA, UNSPECIFIED] Other ear and Unspecified Chronic Active RYAN REHMANSTON [facility] Via sense organ hearing loss , MD Moran disorders (10 Hospital - sources.) [place] (10085) Other ear and Unspecified Chronic Active RYAN SENA [facility] Via sense organ hearing loss, , MD Moran disorders (18 unspecified Hospital - sources.) ear [place] (27182) Conduction Unspecified Chronic Active ALI SAMUEL , Not Av ailable disorders (20 right [facility] (76038) sources.) bundle-branch block Translations: [ PRESENCE OF CARDIAC PACEMAKER, UNSPECIFIED RIGHT BUNDLE-BRANCH BLOCK, ATRIOVENT BLOCK-1ST DEGR, LEFT BB HEMIBLOCK, LEFT ANTERIOR FASCICULAR BLOCK, UNSPECIFIED FASCICULAR BLOCK, PRESENCE OF CARDIAC PACEMAKER] Genitourinary Urge no information Active JUAN J ALEMAN [facility] Via symptoms and incontinence MD Moran ill-defined Translations: Hospital - conditions (17 [ FREQUENCY OF [place] sources.) MICTURITION, (74975) URGE INCONTINENCE] Past or Other Problems Problem Normalized Date Last Normalized Normalized Provider Fa cility Classification Problem(s) Recorded Problem Problem Sta tus Duration Acute and Acute kidney Episodic Completed RYAN SHETTY Not Available unspecified failure, , (29760) renal failure unspecified (5 sources.) Unclassified Acute no information no information Ryan Shetty (11 sources.) pharyngitis 87998 VIKTORIYA WOLF due to other () (Work specified Phone: organisms Translations: ) [ Acute pharyngitis due to other specified organisms] Unclassified ACUTE URI no information no information Ryan Shetty (20 sources.) Translations: 86763 VIKTORIYA WOLF [ ACUTE URI] (74836) (Work Phone: ) Unclassified Biceps no information no information Ryan Shetty (11 sources.) tendonitis 32587 VIKTORIYA WOLF Translations: (22310) (Work [ Biceps Phone: tendonitis] ) External Bite of no information no information [place] ot Available Injury - nonvenomous (98411) Natural / arthropod Environment (9 sources.) External cause Bite of Episodic Completed [place] [facility] [facility] Vi a codes: nonvenomous Luisa Natural/enviro arthropod Hospital - nment (1 [place] source.) (84359) Mycoses (20 [place] Episodic Completed Ryan Shetty sources.) esophagitis 09302 VIKTORIYA WOLF Translations: (09269) (Work [ [place] Phone: esophagitis, Candidal ) esophagitis, Candidal esophagitis] Other lower Cough Episodic Completed Ryan Shetty respiratory Translations: 84666 VIKTORIYA WOLF disease (20 [ Cough, (28424) (Work sources.) Cough] Phone: ) Diabetes Diabetes no information no information Ryan Shetty mellitus mellitus 21668 VIKTORIYA WOLF without without (68871) (Work complication complication Phone: (20 sources.) Translations: [ DIABETES ) TYPE II] Other bone Disorder of Episodic Completed RYAN SHETTY [facility] Via disease and bone and , MD Moran musculoskeleta cartilage, Hospital - l deformities unspecified [place] (9 sources.) (57893) Residual Edema Episodic Completed Ryan Herr anston codes; Translations: 04807 VIKTORIYA WOLF unclassified [ EDEMA] (03487) (Work (20 sources.) Phone: ) Unclassified Encounter for no information no information Ryan Shetty (20 sources.) immunization 30765 VIKTORIYA WOLF Translations: (30636) (Work [ Encounter Phone: for immunization] ) Esophageal Esophageal no information no information Ryan Shetty disorders (16 disorders 21156 VIKTORIYA WOLF sources.) Translations: (17567) (Work [ Phone: Gastro-esophag eal reflux ) disease without esophagitis] Unclassified Excessive no information no information Ryan Shetty (11 sources.) daytime 47476 VIKTORIYA WOLF sleepiness (18845) (Work Translations: Phone: [ Excessive daytime ) sleepiness] Unclassified FEVER NOS no information no information Ryan Shetty (11 sources.) Translations: 52359 VIKTORIYA WOLF [ FEVER NOS] (70406) (Work Phone: ) Other Follow-up Episodic Completed ANDREW CHAPIS , Not Avai lable aftercare (1 examination, (82218) source.) following other surgery Unclassified Frequency of no information no information Ryan Shetty (11 sources.) micturition 95136 , [facility] Translations: (41552) (Work [ Frequency of Phone: micturition] ) Influenza (6 Influenza no information no information Ryan Shetty sources.) Translations: 08649 MD [facility] [ () (Work Gastro-esophag Phone: eal reflux disease ) without esophagitis] Other skin Ingrowing nail Episodic Completed Ryan Shetty disorders (11 Translations: 46591 , [facility] sources.) [ Ingrowing () (Work nail] Phone: ) Other skin Ingrowing nail Episodic Completed Ryan Shetty disorders (11 Translations: 75078 , [facility] sources.) [ Ingrowing (78018) (Work nail, Phone: Ingrowing nail] ) Skin and Insect bite, Episodic Completed [place] ANDERSON Not Izabel ilable subcutaneous nonvenomous of (52376) tissue hip, thigh, infections (23 leg, and sources.) ankle, infected Translations: [ CELLULITIS OF LEG, CELLULITIS OF LEG] Residual Localized Episodic Completed Ryan bella codes; edema 29266 MD [facility] unclassified Translations: (91920) (Work (20 sources.) [ Localized Phone: edema] ) Other terminal clerk no information no information RAFAL No t Available aftercare (21 (current) use GELLENDER , DO (95855) sources.) of oral hypoglycemic drugs Other Long-term Episodic Completed MICHAEL CULVER , Not Avail able aftercare (13 (current) use FAC (74767) sources.) of antiplatelet/a ntithrombotic Other Long-term Episodic Completed TERESA MOHR , Not Izabel ilable aftercare (6 (current) use (03515) sources.) of aspirin Other Muscle Episodic Completed Ryan alonso connective weakness 46927 , [facility] tissue disease (generalized) () (Work (11 sources.) Translations: Phone: [ Muscle weakness ) (generalized)] Other Myalgia Episodic Completed Ryan alonso connective Translations: 38222 VIKTORIYA WOLF tissue disease [ Myalgia] () (Work (20 sources.) Phone: ) Unclassified Myalgia and no information no information Ryan Shetty (11 sources.) myositis 81559 VIKTORIYA WOLF Translations: () (Work [ Myalgia and Phone: myositis] ) Other Myalgia and Episodic Completed RYAN SHETTY Not A vailable connective myositis, , (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 coli] () (Work as the cause Phone: of diseases classified ) elsewhere Translations: [ Other Escherichia coli [E. coli] as the cause of diseases classified elsewhere] Other Other Episodic Completed Ryan alonso aftercare (20 follow-up 75319 VIKTORIYA WOLF sources.) examination () (Work Translations: Phone: [ Encounter for follow-up ) examination after completed treatment for conditions other than malignant neoplasm, Encounter for follow-up examination after completed treatment for conditions other than malignant neoplasm] Other injuries Other Episodic Completed TERESA MOHR , Not Available and conditions nonspecific (09073) due to findings on external examination of causes (1 urine source.) Other Pain in joint, Episodic Completed Ryan Shetty non-traumatic lower leg 00315 MD [facility] joint Translations: () (Work disorders (20 [ Pain in Phone: sources.) right knee, Pain in right ) knee] Other Pain in joint, Episodic Completed Ryan Shetty non-traumatic pelvic region 62937 VIKTORIYA WOLF joint and thigh () (Work disorders (20 Translations: Phone: sources.) [ Pain in right hip, ) Pain in right hip] Unclassified Pain in right no information no information Ryan Shetty (20 sources.) hip 22286 VIKTORIYA WOLF Translations: () (Work [ Pain in Phone: right hip] ) Unclassified Pain in right no information no information Ryan Shetty (11 sources.) knee 60966 VIKTORIYA WOLF Translations: () (Work [ Pain in Phone: right knee] ) Cancer of Personal Episodic Completed no name no informatio n prostate (9 history of sources.) malignant neoplasm of prostate Translations: [ MALIGNANT NEOPLASM OF PROSTATE, PERSONAL HISTORY OF MALIGNANT NEOPLASM O] Poisoning by Poisoning by no information no information RAFAL Not Available other other DO DAO (01524) medications antidysrhythmi and drugs (10 c drugs, sources.) accidental (unintentional ), initial encounter Inflammatory Prostatitis, Episodic Completed Nancy ROWE ot Available conditions of unspecified (64833) male genital organs (3 sources.) Unclassified Proteus no information no information Ryan Shetty (11 sources.) (mirabilis) 29255 VIKTORIYA WOLF (morganii) as () (Work the cause of Phone: diseases classified ) elsewhere Translations: [ Proteus (mirabilis) (morganii) as the cause of diseases classified elsewhere] 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 MAGDALENA CROWE DO [facility] lipid hypercholester Luisa metabolism (22 [place], Hospital - sources.) unspecified [place] (45047) Unclassified Sciatica, left no information no information Ryan Shetty (7 sources.) side 28142 VIKTORIYA WOLF Translations: () (Work [ Sciatica, Phone: left side] ) Unclassified Sciatica, no information no information Ryan Shetty (6 sources.) right side 23350 MD [facility] Translations: (95111) (Work [ Sciatica, Phone: right side] ) Septicemia Sepsis due to no information no information RYAN ALONSO [facility] Via (except in anaerobes , MD Luisa lara) (13 Translations: Hospital - sources.) [ SEPSIS, [place] UNSPECIFIED (33444) ORGANISM, SEPSIS DUE TO ANAEROBES] Unclassified Sleep apnea, no information no information RAFAL Not Available (27 sources.) unspecified GELLENDER , DO (38321) Translations: [ PERSONAL HISTORY OF IRRADIATION, SLEEP APNEA, UNSPECIFIED, BODY MASS INDEX (BMI) 33.0-33.9, ADULT, PATIENT'S NONCOMPLIANCE W OTH MEDICAL TR, OBSTRUCTIVE SLEEP APNEA (ADULT) (PEDIATR, LOCALIZED EDEMA, BODY MASS INDEX (BMI) 33.0-33.9, ADULT] Other injuries Tick bite Episodic Completed Ryan Shetty and conditions Translations: 24108 VIKTORIYA WOLF due to [ Tick bite] () (Work external Phone: causes (11 sources.) ) Unclassified Tick-borne no information no information Ryan Shetty (11 sources.) disease 98528 VIKTORIYA WOLF Translations: (38470) (Work [ Tick-borne Phone: disease] ) Viral Tick-borne Episodic Completed RYAN SHETTY Not Av ailable infection (5 fever , (90818) sources.) Urinary tract Urinary tract no information no information Ryan Shetty infections (11 infections 53989 VIKTORIYA WOLF sources.) Translations: (53309) (Work [ Urinary Phone: tract infection, ) site not specified] Unclassified Vitamin D no information no information Ryan Shetty (11 sources.) deficiency 00770 VIKTORIYA WOLF disease (81260) (Work Translations: Phone: [ Vitamin D deficiency ) disease] Procedures Procedure Normalized Procedure Procedure Result Performer Facility Date 11-13-2017 FLUOROSCOPY OF L INT no information no name [facility] MAMM GRAFT USING [facility] (16725) FLUOROSCOPY OF L INT no information no name [facility] C hristi MAMM GRAFT USING [facility] ([id number]) 11-13-2017 FLUOROSCOPY OF LEFT no information no name [facility] HEART USING [facility] (92319) FLUOROSCOPY OF LEFT no information no name [facility] Ch risti HEART USING [facility] ([id number]) 11-13-2017 FLUOROSCOPY OF MULT no information no name [facility] COR A GRAFT USING [facility] (49359) FLUOROSCOPY OF MULT no information no name [facility] Ch risti COR A GRAFT USING [facility] ([id number]) 11-13-2017 FLUOROSCOPY OF MULT no information no name [facility] COR ART USING [facility] ([id number]) FLUOROSCOPY OF MULT no information no name [facility] Ch risti COR ART USING [facility] ([id number]) 11-13-2017 MEASURE OF CARDIAC no information no name [facility] SAMPL PRESSURE, [facility] (49915) MEASURE OF CARDIAC no information no name [facility] Chr isti SAMPL PRESSURE, [facility] (28243) 09-27-2018 Triamcinolone acet inj no information no name Ryan Shetty [facility] - NOS (27063) (Work Phone : 09-27-2018 ) 12-26-2017 Urnls dip stick/tablet no information no name Ryan Shetty [facility] - rgnt non-auto w/o (70472) (Work Phon e: 12-26-2017 micrscp ) Immunizations Normalized Immunization Date Notes Care Provider Facili ty Immunization influenza, high dose 03-19-2018 no information Rayn Shetty 64227 Ryan Shetty [facility] (26078) (Work preservative-free Phone: ) influenza, seasonal, 03-19-2018 no information Ryan Shetty 23510 Ryan Shetty MD, injectable LLC (98085) (Work Phone: ) ADMIN INFLUENZA 03-19-2018 no information Ryan Shetty 93349 Ryan Shetty MD, [facility] (96962) (Work Phone: ) Results Test Name Value Interpretation Reference Range Date Time Fa cility (Normalized) (Normalized) (Medline Reference) lipid on 2019-03-01 C/HDL 2.9 Ratio (N) 03-01-2019 Ryan Shetty 02:00-0400 VIKTORIYA WOLF (37898) (Work Phone: ) Cholesterol 100 mg/dL (N) 180 - 200 mg/dL 03-01-2019 Saulo Shetty [Mass/Vol] 02:00-0400 VIKTORIYA WOLF (39195) (Work Phone: ) Cholesterol in 35.0 mg/dL (N) 03-01-2019 Ryan mason HDL [Mass/Vol] 02:00-0400 VIKTORIYA WOLF (08342) (Work Phone: ) Cholesterol in 38 mg/dL (N) 0 - 100 mg/dL 03-01-2019 Enmanuel Shetty LDL [Mass/Vol] 02:00-0400 VIKTORIYA WOLF (50940) (Work Phone: ) Triglyceride 137 mg/dL (N) 0 - 150 mg/dL 03-01-2019 Ryan Shetty [Mass/Vol] 02:00-0400 VIKTORIYA WOLF (12664) (Work Phone: ) %hba1c on 2019-03-01 Glucose 128 mg/dL (N) 60 - 125 mg/dL 03-01-2019 Ryan bella [Mass/Vol] 02:00-0400 VIKTORIYA WOLF (37149) (Work Phone: ) HbA1c (Bld) 6.1 % (N) 0 - 5.7 % 03-01-2019 Ryan bakern [Mass fraction] 02:00-0400 VIKTORIYA WOLF (63852) (Work Phone: ) tsh on 2018-09-12 TSH Qn 2.24 uIU/mL (N) 09-12-2018 Ryan Shetty 02:00-0400 VIKTORIYA WOLF (49068) (Work Phone: ) sed rate on 2018-09-12 ESR (Bld) 4 mm/h (N) 09-12-2018 Ryan Shetty [Velocity] 02:00-0400 VIKTORIYA WOLF (46545) (Work Phone: ) lipid on 2018-09-12 C/HDL 2.7 Ratio (N) 09-12-2018 Ryan Shetty 02:00-0400 VIKTORIYA WOLF (29200) (Work Phone: ) Cholesterol 102 mg/dL (N) 180 - 200 mg/dL 09-12-2018 Saulo Shetty [Mass/Vol] 02:00-0400 VIKTORIYA WOLF (88707) (Work Phone: ) Cholesterol in 2.7 Ratio (N) 09-12-2018 Ryan mason HDL [Mass/Vol] 02:00-0400 VIKTORIYA WOLF (54529) (Work Phone: ) Cholesterol in 38.0 mg/dL (N) 09-12-2018 Ryan mason HDL [Mass/Vol] 02:00-0400 VIKTORIYA WOLF (99208) (Work Phone: ) Cholesterol in 39 mg/dL (N) 0 - 100 mg/dL 09-12-2018 Enmanuel Shetty LDL [Mass/Vol] 02:00-0400 VIKTORIYA WOLF (72477) (Work Phone: ) Triglyceride 124 mg/dL (N) 0 - 150 mg/dL 09-12-2018 Ryan Shetty [Mass/Vol] 02:00-0400 VIKTORIYA WOLF (53774) (Work Phone: ) comp metabolic on 2018-09-12 Albumin 4.3 g/dL (N) 3.4 - 5.4 g/dL 09-12-2018 Ryan bella [Mass/Vol] 02:00-0400 VIKTORIYA WOLF (78795) (Work Phone: ) Albumin/Globulin 1.8 {ratio} (N) 1 - 2.5 {ratio} 9 Ryan Shetty [Mass ratio] 02:00-0400 VIKTORIYA WOLF (39129) (Work Phone: ) ALK PHOS 38 U/L (N) 09-12-2018 Ryan Shetty 02:00-0400 VIKTORIYA WOLF (71914) (Work Phone: ) ALT [Catalytic 21 U/L (N) 4 - 40 U/L 09-12-2018 Ryan Shetty activity/Vol] 02:00 VIKTORIYA WOLF (90537) (Work Phone: ) Anion gap 14 mmol/L (N) 3 - 11 mmol/L 09-12-2018 Ryan mcclainton [Moles/Vol] 02:00 VIKTORIYA WOLF (26281) (Work Phone: ) AST [Catalytic 23 U/L (N) 10 - 34 U/L 09-12-2018 Ryan Shetty activity/Vol] 02:00-399 VIKTORIYA WOLF (34675) (Work Phone: ) B/C Ratio 17.4 Ratio (N) 09-12-2018 Ryan Shetty 02:00-399 VIKTORIYA WOLF (16193) (Work Phone: ) BILI T 0.8 mg/dL (N) 09-12-2018 Ryan Shetty 02:00-399 VIKTORIYA WOLF (54293) (Work Phone: ) Calcium 9.4 mg/dL (N) 8.5 - 10.2 mg/dL 09-12-2018 Ryan Shetty [Mass/Vol] 02:00-399 VIKTORIYA WOLF (34292) (Work Phone: ) Chloride 106 mmol/L (N) 95 - 106 mmol/L 09-12-2018 Ryan Shetty [Moles/Vol] 02:00-399 VIKTORIYA WOLF (70765) (Work Phone: ) CO2 [Moles/Vol] 23.0 mmol/L (N) 23 - 29 mmol/L 09-12-2018 Ryan Shetty 02:00-0 VIKTORIYA WOLF (87952) (Work Phone: ) Creatinine 0.9 mg/dL (N) 03-20-2019 Ryan Shetty [Mass/Vol] 02:00-0400 VIKTORIYA WOLF (17980) (Work Phone: ) GFR/1.73 sq M 91 ml/min/1.73m2 (N) 09-12-2018 Ryan bella predicted among 02:00-040 VIKTORIYA WOLF (28821) non-blacks MDRD (Work Phone: (S/P/Bld) [Vol ) rate/Area] Globulin (S) 2.3 g/dL (N) 2 - 3.5 g/dL 09-12-2018 Ryan Shetty [Mass/Vol] 02:00-0400 VIKTORIYA WOLF (55043) (Work Phone: ) Glucose 109 mg/dL (N) 60 - 125 mg/dL 09-12-2018 Ryan bella [Mass/Vol] 02:00-0400 VIKTORIYA WOLF (12040) (Work Phone: ) Osmolality 279 mOsmo (N) 09-12-2018 Ryan Shetty [Osmolality] 02:00-0400 VIKTORIYA WOLF (76897) (Work Phone: ) Potassium 4.0 mmol/L (N) 3.7 - 5.2 mmol/L 09-12-2018 Saulo Shetty [Moles/Vol] 02:00-0400 VIKTORIYA WOLF (56465) (Work Phone: ) Protein 6.6 g/dL (N) 6.4 - 8.3 g/dL 09-12-2018 Ryan bella [Mass/Vol] 02:00-0400 VIKTORIYA WOLF (84588) (Work Phone: ) Sodium 139 mmol/L (N) 135 - 145 mmol/L 09-12-2018 Saulo Shetty [Moles/Vol] 02:00-0400 VIKTORIYA WOLF (32914) (Work Phone: ) TPRO 6.6 g/dL (N) 09-12-2018 Ryan Shetty 02:00-0400 VIKTORIYA WOLF (44380) (Work Phone: ) Urea nitrogen 15 mg/dL (N) 7 - 20 mg/dL 09-12-2018 Ryan Shetty [Mass/Vol] 02:00-0400 VIKTORIYA WOLF (20747) (Work Phone: ) c-reactive protein qnt on 2018-09-12 CRP [Mass/Vol] 1.3 mg/dl (N) 09-12-2018 Ryan Singh ton 02:00-0400 VIKTORIYA WOLF (76190) (Work Phone: ) %hba1c on 2018-09-12 Glucose 128 mg/dL (N) 60 - 125 mg/dL 09-12-2018 Ryan bella [Mass/Vol] 02:00-0400 VIKTORIYA WOLF (71990) (Work Phone: ) HbA1c (Bld) 6.1 % (N) 0 - 5.7 % 09-12-2018 Ryan acuña [Mass fraction] 02:00-0400 VIKTORIYA WOLF (50205) (Work Phone: ) vitamin d 25 oh on 2018-03-20 VITAMIN D, 25 72.07 ng/mL (N) 03-20-2018 Ryan Connell on HYDROXY 02:00-0400 VIKTORIYA WOLF (32492) (Work Phone: ) tsh on 2018-03-20 TSH Qn 1.75 uIU/mL (N) 03-20-2018 Ryan Shetty 02:00-0400 VIKTORIYA WOLF (63901) (Work Phone: ) microalbumin on 2018-03-20 MicroAlb <0.7 <0.7 (N) 03-20-2018 Ryan Shetty 02:00-0400 VIKTORIYA WOLF (63236) (Work Phone: ) manual differential on 2018-03-20 D-1 RBC, PLT Normal (no code) 03-20-2018 Ryan acuña RBC, PLT Normal 02:00-0400 VIKTORIYA WOLF (55194) (Work Phone: ) D-2 Increased (no code) 03-20-2018 Ryan Shetty Monocyte Count 02:00-0400 [facility] (22416) Observed (Work Phone: Increased ) Monocyte Count Observed D-3 Basket Cells (no code) 03-20-2018 Ryan Connello n Observed Basket 02:00-0400 [facility] (50392) Cells Observed (Work Phone: ) D-Aty Lymp Atypical (N) 03-20-2018 Ryan Shetty Lymphocytes 02:00-0400 [facility] (33174) Observed (Work Phone: Atypical ) Lymphocytes Observed D-Eos 5 % (N) 03-20-2018 Ryan Shetty 02:00-0400 [facility] (04223) (Work Phone: ) D-Lymph 29 % (N) 03-20-2018 Ryan Shetty 02:00-0400 [facility] (25278) (Work Phone: ) D-[place] 17 % (N) 03-20-2018 Ryan Shetty 02:00-0400 [facility] (69411) (Work Phone: ) D-Neutr 49 % (N) 03-20-2018 Ryan Shetty 02:00-0400 VIKTORIYA WOLF (39046) (Work Phone: ) Lymphocytes/100 29 % (N) 20 - 40 % 03-20-2018 Ryan Shetty WBC (Bld) 02:00-0400 VIKTORIYA WOLF (28636) (Work Phone: ) lipid on 2018-03-20 C/HDL 6.8 Ratio (N) 03-20-2018 Ryan Shetty 02:00-0400 VIKTORIYA WOLF (45909) (Work Phone: ) Cholesterol 169 mg/dL (N) 180 - 200 mg/dL 03-20-2018 Saulo Shetty [Mass/Vol] 02:00-0400 [facility] (96399) (Work Phone: ) Cholesterol in 6.8 Ratio (N) 03-20-2018 Ryan Crans ton HDL [Mass/Vol] 02:00 VIKTORIYA WOLF (11304) (Work Phone: ) Cholesterol in 25.0 mg/dL (N) 03-20-2018 Ryan mason HDL [Mass/Vol] 02:00 VIKTORIYA WOLF (57341) (Work Phone: ) Cholesterol in 116 mg/dL (N) 0 - 100 mg/dL 03-20-2018 Enmanuel Shetty LDL [Mass/Vol] 02:00 VIKTORIYA WOLF (71403) (Work Phone: ) Triglyceride 138 mg/dL (N) 0 - 150 mg/dL 03-20-2018 Ryan Shetty [Mass/Vol] 02:00 VIKTORIYA WOLF (45781) (Work Phone: ) comp metabolic on 2018-03-20 Albumin 4.5 g/dL (N) 3.4 - 5.4 g/dL 03-20-2018 Ryan bella [Mass/Vol] 02:00 VIKTORIYA WOLF (54630) (Work Phone: ) Albumin/Globulin 1.8 {ratio} (N) 1 - 2.5 {ratio} 8 Ryan Shetty [Mass ratio] 02:00 VIKTORIYA WOLF (20195) (Work Phone: ) ALK PHOS 38 U/L (N) 03-20-2018 Ryan Shetty 02:00 VIKTORIYA WOLF (71195) (Work Phone: ) ALT [Catalytic 18 U/L (N) 4 - 40 U/L 03-20-2018 Ryan Shetty activity/Vol] 02:00 VIKTORIYA WOLF (86864) (Work Phone: ) Anion gap 14 mmol/L (N) 3 - 11 mmol/L 03-20-2018 Ryan Herr anston [Moles/Vol] 02:00 VIKTORIYA WOLF (28435) (Work Phone: ) AST [Catalytic 67 U/L (N) 10 - 34 U/L 03-20-2018 Ryan Shetty activity/Vol] 02:00-399 VIKTORIYA WOLF (96824) (Work Phone: ) B/C Ratio 13.6 Ratio (N) 03-20-2018 Ryan Shetty 02:00-399 VIKTORIYA WOLF (46313) (Work Phone: ) BILI T 1.3 mg/dL (N) 03-20-2018 Ryan Shetty 02:00-399 VIKTORIYA WOLF (62065) (Work Phone: ) Calcium 9.1 mg/dL (N) 8.5 - 10.2 mg/dL 03-20-2018 Ryan Shetty [Mass/Vol] 02:00-399 VIKTORIYA WOLF (45602) (Work Phone: ) Chloride 105 mmol/L (N) 95 - 106 mmol/L 03-20-2018 Ryan Shetyt [Moles/Vol] 02:00 VIKTORIYA WOLF (42552) (Work Phone: ) CO2 [Moles/Vol] 24.0 mmol/L (N) 23 - 29 mmol/L 03-20-2018 Ryan Shetty 02:00-399 VIKTORIYA WOLF (87153) (Work Phone: ) Creatinine 0.9 mg/dL (N) 03-20-2018 Ryan Shetty [Mass/Vol] 02:00 VIKTORIYA WOLF (34118) (Work Phone: ) GFR/1.73 sq M 89 ml/min/1.73m2 (N) 03-20-2018 Ryan bella predicted among 02:00 VIKTORIYA WOLF (37124) non-blacks MDRD (Work Phone: (S/P/Bld) [Vol ) rate/Area] Globulin (S) 2.5 g/dL (N) 2 - 3.5 g/dL 03-20-2018 Ryan Shetty [Mass/Vol] 02:00 VIKTORIYA WOLF (21278) (Work Phone: ) Glucose 108 mg/dL (N) 60 - 125 mg/dL 03-20-2018 yRan bella [Mass/Vol] 02:00-0400 VIKTORIYA WOLF (55891) (Work Phone: ) Osmolality 276 mOsmo (N) 03-20-2018 Ryan Shtety [Osmolality] 02:00-0400 VIKTORIYA WOLF (01027) (Work Phone: ) Potassium 5.1 mmol/L (N) 3.7 - 5.2 mmol/L 03-20-2018 Saulo Shetty [Moles/Vol] 02:00-0400 VIKTORIYA WOLF (97982) (Work Phone: ) Protein 7.0 g/dL (N) 6.4 - 8.3 g/dL 03-20-2018 Ryan bella [Mass/Vol] 02:00-0 VIKTORIYA WOLF (88425) (Work Phone: ) Sodium 138 mmol/L (N) 135 - 145 mmol/L 03-20-2018 Saulo Shetty [Moles/Vol] 02:00-0400 VIKTORIYA WOLF (61950) (Work Phone: ) TPRO 7.0 g/dL (N) 03-20-2018 Ryan Shetty 02:00-0400 VIKTORIYA WOLF (14194) (Work Phone: ) Urea nitrogen 12 mg/dL (N) 7 - 20 mg/dL 03-20-2018 Ryan Shetty [Mass/Vol] 02:00-0400 VIKTORIYA WOLF (96544) (Work Phone: ) cbc with differential on 2018-03-20 Erythrocyte 14.9 % (N) 11.6 - 14.6 % 03-20-2018 Ryan Shetty distribution 02:00-0400 VIKTORIYA WOLF (81435) width (RBC) (Work Phone: [Ratio] ) Hematocrit (Bld) 41.5 % (N) 36.1 - 50.3 % 03-20-2018 H william Shetty [Volume 02:00-0400 VIKTORIYA WOLF (49829) fraction] (Work Phone: ) Hemoglobin (Bld) 13.8 g/dL (N) 12.1 - 17.2 g/dL 03-20-2018 Ryna Shetty [Mass/Vol] 02:00-399 VIKTORIYA WOLF (33285) (Work Phone: ) MCH (RBC) 31.6 pg (N) 27 - 31 pg 03-20-2018 Ryan mason [Entitic mass] 02:00-399 VIKTORIYA WOLF (24488) (Work Phone: ) MCHC 33.3 pg (N) 03-20-2018 Ryan Shetty 02:00-399 VIKTORIYA WOLF (37322) (Work Phone: ) MCHC (RBC) 33.3 pg (N) 03-20-2018 Ryan Shetty [Mass/Vol] 02:00-399 VIKTORIYA WOLF (53973) (Work Phone: ) MCV (RBC) 95.0 fL (N) 80 - 100 fL 03-20-2018 Ryan acuña [Entitic vol] 02:00-399 VIKTORIYA WOLF (36846) (Work Phone: ) Platelets (Bld) 189 10*3/uL (N) 150 - 450 03-20-2018 Saulo Shetty [#/Vol] 10*3/uL 02:00 VIKTORIYA WOLF (42782) (Work Phone: ) RBC (Bld) 4.37 10*6/uL (N) 4.2 - 6.1 03-20-2018 Ryan workman [#/Vol] 10*6/uL 02:00-399 VIKTORIYA WOLF (04694) (Work Phone: ) WBC (Bld) 5.78 10*3/uL (N) 3.5 - 10.5 03-20-2018 Ryan alonso [#/Vol] 10*3/uL 02:00 VIKTORIYA WOLF (70390) (Work Phone: ) %hba1c on 2018-03-20 Glucose 123 mg/dL (N) 60 - 125 mg/dL 03-20-2018 Ryan bella [Mass/Vol] 02:00-0400 VIKTORIYA WOLF (27109) (Work Phone: ) HbA1c (Bld) 5.9 % (N) 0 - 5.7 % 03-20-2018 Ryan acuña [Mass fraction] 02:00-0400 VIKTORIYA WOLF (73693) (Work Phone: ) manual differential on 2017-12-26 D-1 PLTE DECREASED (no code) 12-26-2017 Ryan Singh ton PLTE DECREASED 02:00-0400 VIKTORIYA WOLF (05660) (Work Phone: ) D-Eos 2 % (N) 12-26-2017 Ryan Shetty 02:00-0400 VIKTORIYA WOLF (02384) (Work Phone: ) D-Lymph 37 % (N) 12-26-2017 Ryan Shetty 02:00-0400 VIKTORIYA WOLF (38684) (Work Phone: ) D-[place] 9 % (N) 12-26-2017 Ryan Shetty 02:00-0400 VIKTORIYA WOLF (07597) (Work Phone: ) D-Neutr 52 % (N) 12-26-2017 Ryan Shetty 02:00-0400 VIKTORIYA WOLF (67551) (Work Phone: ) Lymphocytes/100 37 % (N) 20 - 40 % 12-26-2017 Ryan Shetty WBC (Bld) 02:00-0400 VIKTORIYA WOLF (55623) (Work Phone: ) comp metabolic on 2017-12-26 Albumin 4.6 g/dL (N) 3.4 - 5.4 g/dL 12-26-2017 Ryan bella [Mass/Vol] 02:00-0400 VIKTORIYA WOLF (24444) (Work Phone: ) Albumin/Globulin 1.9 {ratio} (N) 1 - 2.5 {ratio} 8 Ryan Shetty [Mass ratio] 02:00-0 VIKTORIYA WOLF (12806) (Work Phone: ) ALK PHOS 37 U/L (N) 12-26-2017 Ryan Shetty 02:00-0 VIKTORIYA WOLF (47826) (Work Phone: ) ALT [Catalytic 18 U/L (N) 4 - 40 U/L 12-26-2017 Ryan Shetty activity/Vol] 02:00-0 VIKTORIYA WOLF (33089) (Work Phone: ) Anion gap 13 mmol/L (N) 3 - 11 mmol/L 12-26-2017 Ryan mcclainton [Moles/Vol] 02:00 [facility] (25770) (Work Phone: ) AST [Catalytic 20 U/L (N) 10 - 34 U/L 12-26-2017 Ryan Shetty activity/Vol] 02:00 VIKTORIYA WOLF ([id number]) (Work Phone: ) B/C Ratio 15.7 Ratio (N) 12-26-2017 Ryan hSetty 02:00-0 VIKTORIYA WOLF ([id number]) (Work Phone: ) BILI T 1.3 mg/dL (N) 12-26-2017 Ryan Shetty 02:00-0 VIKTORIYA WOLF ([id number]) (Work Phone: ) Calcium 9.6 mg/dL (N) 8.5 - 10.2 mg/dL 12-26-2017 Ryan Shetty [Mass/Vol] 02:00-0400 [facility] ([id number]) (Work Phone: ) Chloride 104 mmol/L (N) 95 - 106 mmol/L 12-26-2017 Ryna Shetty [Moles/Vol] 02:000 VIKTORIYA WOLF ([id number]) (Work Phone: ) CO2 [Moles/Vol] 24.0 mmol/L (N) 23 - 29 mmol/L 12-26-2017 Ryan Shetty 02:00-0400 [facility]K[employer] ([id number]) (Work Phone: ) Creatinine 0.9 mg/dL (N) 12-26-2017 Ryan Shetty [Mass/Vol] 02:00-0400 [facility]K[employer] ([id number]) (Work Phone: ) GFR/1.73 sq M 88 ml/min/1.73m2 (N) 12-26-2017 Ryan bella predicted among 02:00 VIKTORIYA WOLF ([id number]) non-blacks MDRD (Work Phone: (S/P/Bld) [Vol ) rate/Area] Globulin (S) 2.5 g/dL (N) 2 - 3.5 g/dL 12-26-2017 Ryan Shetty [Mass/Vol] 02:00-0400 [facility]K[employer] ([id number]) (Work Phone: ) Glucose 91 mg/dL (N) 60 - 125 mg/dL 12-26-2017 Ryan bella [Mass/Vol] 02:00-0400 [facility]KTORIYA WOLF ([id number]) (Work Phone: ) Osmolality 274 mOsmo (N) 12-26-2017 Ryan Shetty [Osmolality] 02:00-0 VIKTORIYA WOLF ([id number]) (Work Phone: ) Potassium 4.2 mmol/L (N) 3.7 - 5.2 mmol/L 12-26-2017 Saulo Shetty [Moles/Vol] 02:00-0 [facility]K[employer]YA WOLF ([id number]) (Work Phone: ) Protein 7.0 g/dL (N) 6.4 - 8.3 g/dL 12-26-2017 Ryan belal [Mass/Vol] 02:00-0 [facility]K[employer] WOL[facility] ([id number]) (Work Phone: ) Sodium 137 mmol/L (N) 135 - 145 mmol/L 12-26-2017 Saulo Shetty [Moles/Vol] 02:00-0 VIKTORIYA WOLF ([id number]) (Work Phone: ) TPRO 7.0 g/dL (N) 12-26-2017 Ryan Shetty 02:00-0400 VIKTORIYA WOLF ([id number]) (Work Phone: ) Urea nitrogen 14 mg/dL (N) 7 - 20 mg/dL 12-26-2017 Ryan Shetty [Mass/Vol] 02:00-0400 VIKTORIYA WOLF ([id number]) (Work Phone: ) cbc with differential on 2017-12-26 Erythrocyte 14.8 % (N) 11.6 - 14.6 % 12-26-2017 Ryan Shetty distribution 02:00-0400 VIKTORIYA WOLF ([id number]) width (RBC) (Work Phone: [Ratio] ) Hematocrit (Bld) 44.3 % (N) 36.1 - 50.3 % 12-26-2017 H william Sena [Volume 02:00-0400 VIKTORIYA WOLF ([id number]) fraction] (Work Phone: ) Hemoglobin (Bld) 14.7 g/dL (N) 12.1 - 17.2 g/dL 12-26-2017 Ryan Shetty [Mass/Vol] 02:00-0400 VIKTORIYA WOLF ([id number]) (Work Phone: ) MCH (RBC) 31.3 pg (N) 27 - 31 pg 12-26-2017 Ryan mason [Entitic mass] 02:00-0400 VIKTORIYA WOLF ([id number]) (Work Phone: ) MCHC 33.2 pg (N) 12-26-2017 Ryan Shetty 02:00-0400 VIKTORIYA WOLF ([id number]) (Work Phone: ) MCHC (RBC) 33.2 pg (N) 12-26-2017 Ryan Shetty [Mass/Vol] 02:00-0400 VIKTORIYA WOLF ([id number]) (Work Phone: ) MCV (RBC) 94.3 fL (N) 80 - 100 fL 12-26-2017 Ryan acuña [Entitic vol] 02:00-0400 VIKTORIYA WOLF ([id number]) (Work Phone: ) Platelets (Bld) 129 10*3/uL (N) 150 - 450 12-26-2017 Saulo Shetty [#/Vol] 10*3/uL 02:00-0 VIKTORIYA WOLF ([id number]) (Work Phone: ) RBC (Bld) 4.70 10*6/uL (N) 4.2 - 6.1 12-26-2017 Ryan workman [#/Vol] 10*6/uL 02:00-0 VIKTORIYA WOLF ([id number]) (Work Phone: ) WBC (Bld) 6.40 10*3/uL (N) 3.5 - 10.5 12-26-2017 Ryan alonso [#/Vol] 10*3/uL 02:00 VIKTORIYA WOLF ([id number]) (Work Phone: ) comp metabolic on 2017-09-18 Albumin 4.3 g/dL (N) 3.4 - 5.4 g/dL 09-18-2017 Ryan bella [Mass/Vol] 02:00-399 VIKTORIYA WOLF ([id number]) (Work Phone: ) Albumin/Globulin 1.9 {ratio} (N) 1 - 2.5 {ratio} 8 Ryan Shetty [Mass ratio] 02:00-399 VIKTORIYA WOLF ([id number]) (Work Phone: ) ALK PHOS 39 U/L (N) 09-18-2017 Ryan Shetty 02:00-399 VIKTORIYA WOLF ([id number]) (Work Phone: ) ALT [Catalytic 16 U/L (N) 4 - 40 U/L 09-18-2017 Ryan Shetty activity/Vol] 02:00-399 VIKTORIYA WOLF ([id number]) (Work Phone: ) Anion gap 13 mmol/L (N) 3 - 11 mmol/L 09-18-2017 Ryan alonso [Moles/Vol] 02:00-399 VIKTORIYA WOLF ([id number]) (Work Phone: ) AST [Catalytic 20 U/L (N) 10 - 34 U/L 09-18-2017 Ryan hSetty activity/Vol] 02:00-0 VIKTORIYA WOLF ([id number]) (Work Phone: ) B/C Ratio 12.3 Ratio (N) 09-18-2017 Ryan Shetty 02:00-0 VIKTORIYA WOLF ([id number]) (Work Phone: ) BILI T 0.8 mg/dL (N) 09-18-2017 Ryan Shetty 02:00-0400 VIKTORIYA WOLF ([id number]) (Work Phone: ) Calcium 9.6 mg/dL (N) 8.5 - 10.2 mg/dL 09-18-2017 Ryan Shetty [Mass/Vol] 02:00-399 VIKTORIYA WOLF ([id number]) (Work Phone: ) Chloride 107 mmol/L (N) 95 - 106 mmol/L 09-18-2017 Ryan Shetty [Moles/Vol] 02:00-0 VIKTORIYA WOLF ([id number]) (Work Phone: ) CO2 [Moles/Vol] 23.0 mmol/L (N) 23 - 29 mmol/L 09-18-2017 Ryan Shetty 02:00-0400 VIKTORIYA WOLF ([id number]) (Work Phone: ) Creatinine 0.8 mg/dL (N) 09-18-2017 Ryan Shetty [Mass/Vol] 02:00 VIKTORIYA WOLF ([id number]) (Work Phone: ) GFR/1.73 sq M 98 ml/min/1.73m2 (N) 09-18-2017 Ryan bella predicted among 02: VIKTORIYA WOLF ([id number]) non-blacks MDRD (Work Phone: (S/P/Bld) [Vol ) rate/Area] Globulin (S) 2.3 g/dL (N) 2 - 3.5 g/dL 09-18-2017 Ryan Shetty [Mass/Vol] 02:00 VIKTORIYA WOLF ([id number]) (Work Phone: ) Glucose 142 mg/dL (N) 60 - 125 mg/dL 09-18-2017 Ryan bella [Mass/Vol] 02:00-0400 VIKTORIYA WOLF ([id number]) (Work Phone: ) Osmolality 279 mOsmo (N) 09-18-2017 Ryan Shetty [Osmolality] 02:00-0400 VIKTORIYA WOLF ([id number]) (Work Phone: ) Potassium 3.9 mmol/L (N) 3.7 - 5.2 mmol/L 09-18-2017 Saulo Shetty [Moles/Vol] 02:00-0400 VIKTORIYA WOLF ([id number]) (Work Phone: ) Protein 6.6 g/dL (N) 6.4 - 8.3 g/dL 09-18-2017 Ryan bella [Mass/Vol] 02:00-0400 VIKTORIYA WOLF ([id number]) (Work Phone: ) Sodium 139 mmol/L (N) 135 - 145 mmol/L 09-18-2017 Saulo Shetty [Moles/Vol] 02:00-0400 VIKTORIYA WOFL ([id number]) (Work Phone: ) TPRO 6.6 g/dL (N) 09-18-2017 Ryan Shetty 02:00-0400 VIKTORIYA WOLF ([id number]) (Work Phone: ) Urea nitrogen 10 mg/dL (N) 7 - 20 mg/dL 09-18-2017 Ryan Shetty [Mass/Vol] 02:00-0400 VIKTORIYA WOLF ([id number]) (Work Phone: ) %hba1c on 2017-09-18 Glucose 123 mg/dL (N) 60 - 125 mg/dL 09-18-2017 Ryan bella [Mass/Vol] 02:00-0400 VIKTORIYA WOLF ([id number]) (Work Phone: ) HbA1c (Bld) 5.9 % (N) 0 - 5.7 % 09-18-2017 Ryan acuña [Mass fraction] 02:00-0400 VIKTORIYA WOLF ([id number]) (Work Phone: ) test(s) not perfromed on 2017-06-27 [employer] Pierre Jay (no code) 06-27-2017 Ryan Vigil 13:00-0500 VIKTORIYA WOLF ([id number]) (Work Phone: ) COMMENT n/a (no code) 06-27-2017 Ryan Shetty 13:00-0500 VIKTORIYA WOLF ([id number]) (Work Phone: ) Rejection Reason Canceled per (no code) 06-27-2017 Ryan alonso Provider 13:000500 VIKTORIYA WOLF ([id number]) Canceled per (Work Phone: Provider ) TEST NAME CBC, CMP, A1c (no code) 06-27-2017 Ryan Connell on CBC, CMP, A1c 13:00-0500 VIKTORIYA WOLF ([id number]) (Work Phone: ) Test(s) Not Test(s) Not (no code) 06-27-2017 Ryan Shetty Performed Performed. See 13:00-0500 VIKTORIYA WOLF ([id number]) Below: Test(s) (Work Phone: Not Performed. ) See Below: lipid on 2017-03-06 C/HDL 5.4 Ratio (N) 03-06-2017 Ryan Shetty 02:00-0400 VIKTORIYA WOLF ([id number]) (Work Phone: ) comp metabolic on 2017-03-06 ALK PHOS 37 U/L (N) 03-06-2017 Ryan Shetty 02:00-0400 VIKTORIYA WOLF ([id number]) (Work Phone: ) Anion gap 13 mmol/L (N) 3 - 11 mmol/L 03-06-2017 Ryan alonso [Moles/Vol] 02:00-0400 VIKTORIYA WOLF ([id number]) (Work Phone: ) B/C Ratio 13.4 Ratio (N) 03-06-2017 Ryan Shetty 02:00-0400 VIKTORIYA WOLF ([id number]) (Work Phone: ) BILI T 0.8 mg/dL (N) 03-06-2017 Ryan Shetty 02:00-0400 VIKTORIYA WOLF ([id number]) (Work Phone: ) Globulin (S) 2.1 g/dL (N) 2 - 3.5 g/dL 03-06-2017 Ryan Shetty [Mass/Vol] 02:00-0400 VIKTORIYA WOLF ([id number]) (Work Phone: ) Glucose 101 mg/dL (N) 60 - 125 mg/dL 03-06-2017 Ryan bella [Mass/Vol] 02:00-0400 VIKTORIYA WOLF ([id number]) (Work Phone: ) Protein 6.2 g/dL (N) 6.4 - 8.3 g/dL 03-06-2017 Ryan bella [Mass/Vol] 02:00-0 VIKTORIYA WOLF ([id number]) (Work Phone: ) TPRO 6.2 g/dL (N) 03-06-2017 Ryan Shetty 02:00-0400 VIKTORIYA WOLF ([id number]) (Work Phone: ) %hba1c on 2017-03-06 Glucose 117 mg/dL (N) 60 - 125 mg/dL 03-06-2017 Ryan bella [Mass/Vol] 02:00-0400 VIKTORIYA WOLF ([id number]) (Work Phone: ) manual differential on 2016-11-17 D-Bands 3 % (N) 11-17-2016 Ryan Shetty 02:00-0400 VIKTORIYA WOLF ([id number]) (Work Phone: ) D-Lymph 37 % (N) 11-17-2016 yRan Shetty 02:00-0400 VIKTORIYA WOLF ([id number]) (Work Phone: ) D-[place] 1 % (N) 11-17-2016 Ryan Shetty 02:00-0400 VIKTORIYA WOLF ([id number]) (Work Phone: ) D-Neutr 59 % (N) 11-17-2016 Ryan Shetty 02:00-0400 VIKTORIYA WOLF ([id number]) (Work Phone: ) cbc with differential on 2016-11-17 Eos ABS# 0.1 K/ul (N) 11-17-2016 Ryan Shetty 02:00-0400 [facility] ([id number]) (Work Phone: ) [place] ABS# 0.8 K/ul (N) 11-17-2016 Ryan Shetty 02:00-0400 [facility] ([id number]) (Work Phone: ) microalbumin on 2016-10-11 MicroAlb <0.7 <0.7 (N) 10-11-2016 Ryan Shetty 02:00-0400 VIKTORIYA WOLF ([id number]) (Work Phone: ) lipid on 2016-10-11 C/HDL 6.1 Ratio (N) 10-11-2016 Ryan Shetty 02:00-0400 VIKTORIYA WOLF ([id number]) (Work Phone: ) comp metabolic on 2016-10-11 ALK PHOS 34 U/L (N) 10-11-2016 Ryan Shetty 02:00-0400 VIKTORIYA WOLF ([id number]) (Work Phone: ) B/C Ratio 11.3 Ratio (N) 10-11-2016 Ryan Shetty 02:00-0400 VIKTORIYA WOLF ([id number]) (Work Phone: ) BILI T 0.7 mg/dL (N) 10-11-2016 Ryan Shetty 02:00-0400 VIKTORIYA WOLF ([id number]) (Work Phone: ) TPRO 6.2 g/dL (N) 10-11-2016 Ryan Shetty 02:00-0400 VIKTORIYA WOLF ([id number]) (Work Phone: ) cbc with differential on 2016-10-11 Baso ABS# 0.1 K/ul (N) 10-11-2016 Ryan Shetty 02:00-0400 VIKTORIYA WOLF ([id number]) (Work Phone: ) Eos ABS# 0.1 K/ul (N) 10-11-2016 Ryan Shetty 02:00-0 VIKTORIYA WOLF ([id number]) (Work Phone: ) [place] ABS# 0.8 K/ul (N) 10-11-2016 Ryan Shetty 02:00-0 [facility] ([id number]) (Work Phone: ) Neut ABS# 1.87 K/ul (N) 10-11-2016 Ryan Shetty 02:000 [facility] ([id number]) (Work Phone: ) lipid on 2016-04-19 C/HDL 5.2 Ratio (N) 04-19-2016 Ryan Shetty 02:00-0 VIKTORIYA WOLF ([id number]) (Work Phone: ) comp metabolic on 2016-04-19 ALK PHOS 44 U/L (N) 04-19-2016 Ryan Shetty 02:00-399 VIKTORIYA WOLF ([id number]) (Work Phone: ) B/C Ratio 14.1 Ratio (N) 04-19-2016 Ryan Shetty 02:00 VIKTORIYA WOLF ([id number]) (Work Phone: ) BILI T 1.1 mg/dL (N) 04-19-2016 Ryan Shetty 02:00 VIKTORIYA WOLF ([id number]) (Work Phone: ) TPRO 6.4 g/dL (N) 04-19-2016 Ryan Shetty 02:000 VIKTORIYA WOLF ([id number]) (Work Phone: ) manual differential on 2015-09-28 Basophils (Bld) 1 % (N) 09-28-2015 Ryan acuña [#/Vol] 02: VIKTORIYA WOLF ([id number]) (Work Phone: ) D-1 Plt Adequate Plt (no code) 09-28-2015 Ryan [place]rys[place]on Adequate 02: VIKTORIYA WOLF ([id number]) (Work Phone: ) D-Bands 1 % (N) 09-28-2015 Ryan Shetty 02:000 [facility] ([id number]) (Work Phone: ) D-Baso 1 % (N) 09-28-2015 Ryan Shetty 02:000400 [facility] ([id number]) (Work Phone: ) D-Eos 4 % (N) 09-28-2015 Ryan Shetty 02:000400 [facility] ([id number]) (Work Phone: ) D-Lymph 39 % (N) 09-28-2015 Ryan Shetty 02: [facility] ([id number]) (Work Phone: ) D-[place] 6 % (N) 09-28-2015 Ryan Shetty 02:0 [facility] ([id number]) (Work Phone: ) D-Neutr 49 % (N) 09-28-2015 Ryan Shetty 02:000400 MD [facility] ([id number]) (Work Phone: ) lipid on 2015-09-28 C/HDL 4.2 Ratio (N) 09-28-2015 Ryan Shetty 02: VIKTORIYA WOLF ([id number]) (Work Phone: ) comp metabolic on 2015-09-28 ALK PHOS 40 U/L (N) 09-28-2015 Ryan Shetty 02:000 VIKTORIYA WOLF ([id number]) (Work Phone: ) B/C Ratio 14.6 Ratio (N) 09-28-2015 Ryan Shetty 02:000400 VIKTORIYA WOLF ([id number]) (Work Phone: ) BILI T 0.8 mg/dL (N) 09-28-2015 Ryan Shetty 02:000400 [facility] ([id number]) (Work Phone: ) TPRO 6.6 g/dL (N) 09-28-2015 Ryan Shetty 02:00-0400 VIKTORIYA WOLF ([id number]) (Work Phone: ) cbc with differential on 2015-09-28 New Analyzer Please note new (no code) 09-28-2015 Ryan workman Notice ref ranges 02:00-0400 VIKTORIYA WOLF ([id number]) starting (Work Phone: 07-08-2015 due to ) implemntation of new five part differential hematolgy analyzer. Please note new ref ranges starting 07-08-2015 due to implemntation of new five part differential hematolgy analyzer. vitamin d 25 oh on 2015-02-18 VITAMIN D, 25 42.96 ng/mL (N) 02-18-2015 Ryan Connell on HYDROXY 02:00-399 VIKTORIYA WOLF ([id number]) (Work Phone: ) lipid on 2015-02-18 C/HDL 4.1 Ratio (N) 02-18-2015 Ryan Shetty 02:00-399 VIKTORIYA WOLF ([id number]) (Work Phone: ) comp metabolic on 2015-02-18 ALK PHOS 33 U/L (N) 02-18-2015 Ryan Shetty 02:00-0400 VIKTORIYA WOLF ([id number]) (Work Phone: ) B/C Ratio 11.0 Ratio (N) 02-18-2015 Ryan Shetty 02:00-0400 VIKTORIYA WOLF ([id number]) (Work Phone: ) BILI T 0.8 mg/dL (N) 02-18-2015 Ryan Shetty 02:00-0400 VIKTORIYA WOLF ([id number]) (Work Phone: ) TPRO 6.3 g/dL (N) 02-18-2015 Ryan Shetty 02:00-0400 VIKTORIYA WOLF ([id number]) (Work Phone: ) cbc with differential on 2015-02-18 LYM 2.3 K/uL (N) 02-18-2015 Ryan Shetty 02:00-0400 VIKTORIYA WOLF ([id number]) (Work Phone: ) MID 0.4 K/uL (N) 02-18-2015 Ryan Shetty 02:00-0 VIKTORIYA WOLF ([id number]) (Work Phone: ) MID% 9.3 % (N) 02-18-2015 Ryan Shetty 02:00 VIKTORIYA WOLF ([id number]) (Work Phone: ) NEUT/GRAN 2.0 K/uL (N) 02-18-2015 Ryan Shetty 02:00 VIKTORIYA WOLF ([id number]) (Work Phone: ) NEUT/GRAN % 41.8 % (N) 02-18-2015 Ryan Shetty 02:00 VIKTORIYA WOLF ([id number]) (Work Phone: ) Variant 48.9 % (N) 0 - 1 % 02-18-2015 Ryan Connell on lymphocytes/100 02:00-399 VIKTORIYA WOLF ([id number]) WBC (Bld) (Work Phone: ) vit d totl on 2013-10-29 VIT D TOTL 21 NG/ML (N) 10-29-2013 Ryan Shetty 02:00 VIKTORIYA WOLF ([id number]) (Work Phone: ) tsh on 2013-10-28 TSH 0.919 uIU/ML (N) 10-28-2013 Ryan Jack n 02:00 VIKTORIYA WOLF ([id number]) (Work Phone: ) gfr calc on 2013-10-28 GFR AA >60 >60 (N) 10-28-2013 Ryan Shetty 02:00 VIKTORIYA WOLF ([id number]) (Work Phone: ) GFR NON-AA >60 >60 (N) 10-28-2013 Ryan Shetty 02:00 VIKTORIYA WOLF ([id number]) (Work Phone: ) chem 14 on 2013-10-28 ALK PHOS 20 U/L (N) 10-28-2013 Ryan Shetty 02:00 VIKTORIYA WOLF ([id number]) (Work Phone: ) BICARB 24 MMOL/L (N) 10-28-2013 Ryan Shetty 02:00-399 VIKTORIYA WOLF ([id number]) (Work Phone: ) BILI TOT 0.7 MG/DL (N) 10-28-2013 Ryan Shetty 02:00-399 VIKTORIYA WOLF ([id number]) (Work Phone: ) PROT TOT 6.6 GM/DL (N) 10-28-2013 Ryan Shetty 02:00-399 [facility] ([id number]) (Work Phone: ) cbc on 2013-10-28 ABS BASO 0.02 10e9/L (N) 10-28-2013 Ryan Shtety 02:00-399 VIKTORIYA WOLF ([id number]) (Work Phone: ) ABS EOS 0.15 10e9/L (N) 10-28-2013 Ryan Shetty 02:00 VIKTORIYA WOLF ([id number]) (Work Phone: ) ABS MONO 0.56 10e9/L (N) 10-28-2013 Ryan Shetty 02:00 VIKTORIYA WOLF ([id number]) (Work Phone: ) ABS EDY 1.90 10e9/L (N) 10-28-2013 Ryan Shetty 02:00 VIKTORIYA WOLF ([id number]) (Work Phone: ) RDW-SD 51.2 fL (N) 10-28-2013 Ryan Shetty 02:00 VIKTORIYA WOLF ([id number]) (Work Phone: ) SCAN REVW FOOTNOTE (no code) 10-28-2013 Ryan Shetty FOOTNOTE 02: VIKTORIYA WOLF ([id number]) (Work Phone: ) tsh on 2013-03-28 TSH 1.141 uIU/ML (N) 03-28-2013 Ryan Connello n 02: VIKTORIYA WOLF ([id number]) (Work Phone: ) psa eq on 2013-03-28 PSA EQ 3.58 NG/ML (N) 03-28-2013 Ryan Shetty 02:000 VIKTORIYA WOLF ([id number]) (Work Phone: ) gfr calc on 2013-03-28 GFR AA >60 >60 (N) 03-28-2013 Ryan Shetty 02:000 [facility] ([id number]) (Work Phone: ) GFR NON-AA >60 >60 (N) 03-28-2013 Ryan Shetty 02:00 [facility] ([id number]) (Work Phone: ) chem 14 on 2013-03-28 ALK PHOS 18 U/L (N) 03-28-2013 Ryan Shetty 02:00 [facility] ([id number]) (Work Phone: ) BICARB 23 MMOL/L (N) 03-28-2013 Ryan Shetty 02:00 VIKTORIYA WOLF ([id number]) (Work Phone: ) BILI TOT 0.7 MG/DL (N) 03-28-2013 Ryan Shetty 02:00-0 VIKTORIYA WOLF ([id number]) (Work Phone: ) PROT TOT 6.6 GM/DL (N) 03-28-2013 Ryan Shetty 02:00 [facility] ([id number]) (Work Phone: ) cbc on 2013-03-28 ABS BASO 0.09 10e9/L (N) 03-28-2013 Ryan Shetty 02:00-0400 VIKTORIYA WOLF ([id number]) (Work Phone: ) ABS EOS 0.17 10e9/L (N) 03-28-2013 Ryan Shetty 02:000400 VIKTORIYA WOLF ([id number]) (Work Phone: ) ABS MONO 0.68 10e9/L (N) 03-28-2013 Ryan Shetty 02:00-0400 VIKTORIYA WOLF ([id number]) (Work Phone: ) ABS EDY 1.75 10e9/L (N) 03-28-2013 Ryan Shetty 02:00 VIKTORIYA WOLF ([id number]) (Work Phone: ) RDW-SD 48.3 fL (N) 03-28-2013 Ryan Shetty 02:00 [facility] ([id number]) (Work Phone: ) magnesium on 2013-01-29 Magnesium 1.7 mmol/L (N) 0.85 - 1.1 01-29-2013 Ryan bakern [Moles/Vol] mmol/L 02: [facility] ([id number]) (Work Phone: ) gfr calc on 2013-01-29 GFR AA >60 >60 (N) 01-29-2013 Ryan Shetty 02:00 [facility] ([id number]) (Work Phone: ) GFR NON-AA >60 >60 (N) 01-29-2013 Ryan Shetty 02:00 [facility] ([id number]) (Work Phone: ) cpk on 2013-01-29 CPK 152 U/L (N) 01-29-2013 Ryan Shetty 02:00 [facility] ([id number]) (Work Phone: ) chem 14 on 2013-01-29 ALK PHOS 21 U/L (N) 01-29-2013 Ryan Shetty 02: VIKTORIYA WOLF ([id number]) (Work Phone: ) BICARB 25 MMOL/L (N) 01-29-2013 Ryan Shetty 02: [facility] ([id number]) (Work Phone: ) BILI TOT 0.8 MG/DL (N) 01-29-2013 Ryan Shetty 02:00 [facility] ([id number]) (Work Phone: ) PROT TOT 6.4 GM/DL (N) 01-29-2013 Ryan Shetty 02: VIKTORIYA WOLF ([id number]) (Work Phone: ) cbc on 2013-01-29 ABS BASO 0.15 10e9/L (N) 01-29-2013 Ryan Shetty 02: VIKTORIYA WOLF ([id number]) (Work Phone: ) ABS EOS 0.16 10e9/L (N) 01-29-2013 Ryan Shetty 02: [facility] ([id number]) (Work Phone: ) ABS MONO 0.55 10e9/L (N) 01-29-2013 Ryan Shetty 02: [facility] ([id number]) (Work Phone: ) ABS EDY 1.90 10e9/L (N) 01-29-2013 Ryan Shetty 02: [facility] ([id number]) (Work Phone: ) RDW-SD 47.9 fL (N) 01-29-2013 Ryan Shetty 02: [facility] ([id number]) (Work Phone: ) gfr calc on 2012-09-27 GFR AA >60 >60 (N) 09-27-2012 Ryan Shetty 02: VIKTORIYA WOLF ([id number]) (Work Phone: ) GFR NON-AA 60.0L 60.0L (N) 09-27-2012 Ryan Shetty 02: VIKTORIYA WOLF ([id number]) (Work Phone: ) chem 14 on 2012-09-27 ALK PHOS 22 U/L (N) 09-27-2012 Ryan Shetty 02: VIKTORIYA WOLF ([id number]) (Work Phone: ) BICARB 28 MMOL/L (N) 09-27-2012 Ryan Shetty 02: [facility] ([id number]) (Work Phone: ) BILI TOT 0.7 MG/DL (N) 09-27-2012 Ryan Shetty 02: VIKTORIYA WOLF ([id number]) (Work Phone: ) PROT TOT 6.5 GM/DL (N) 09-27-2012 Ryan Shetty 02: VIKTORIYA WOLF ([id number]) (Work Phone: ) cbc on 2012-09-27 ABS BASO 0.01 10e9/L (N) 09-27-2012 Ryan Shetty 02: VIKTORIYA WOLF ([id number]) (Work Phone: ) ABS EOS 0.19 10e9/L (N) 09-27-2012 Ryan Shetty 02: [facility] ([id number]) (Work Phone: ) ABS MONO 0.70 10e9/L (N) 09-27-2012 Ryan Shetty 02:-399 [facility] ([id number]) (Work Phone: ) ABS EDY 2.17 10e9/L (N) 09-27-2012 Ryan Shetty 02: [facility] ([id number]) (Work Phone: ) RDW-SD 49.2 fL (N) 09-27-2012 Ryan Shetty 02:00 [facility] ([id number]) (Work Phone: ) tsh on 2012-03-26 TSH 1.554 uIU/ML (N) 03-26-2012 Ryan cruz 02: VIKTORIYA WOLF ([id number]) (Work Phone: ) psa eq on 2012-03-26 PSA EQ 3.51 NG/ML (N) 03-26-2012 Ryan Shetty 02: VIKTORIYA WOLF ([id number]) (Work Phone: ) gfr calc on 2012-03-26 GFR AA >60 >60 (N) 03-26-2012 Ryan Shetty 02:00 VIKTORIYA WOLF ([id number]) (Work Phone: ) GFR NON-AA >60 >60 (N) 03-26-2012 Ryan Shetty 02:00-0400 VIKTORIYA WOLF ([id number]) (Work Phone: ) chem 14 on 2012-03-26 ALK PHOS 26 U/L (N) 03-26-2012 Ryan Shetty 02:00-0400 VIKTORIYA WOLF ([id number]) (Work Phone: ) BICARB 25 MMOL/L (N) 03-26-2012 Ryan Shetty 02:000400 VIKTORIYA WOLF ([id number]) (Work Phone: ) BILI TOT 0.7 MG/DL (N) 03-26-2012 Ryan Shetty 02:00-0400 VIKTORIYA WOLF ([id number]) (Work Phone: ) PROT TOT 6.4 GM/DL (N) 03-26-2012 Ryan Shetty 02:00-0400 VIKTORIYA WOLF ([id number]) (Work Phone: ) cbc on 2012-03-26 ABS BASO 0.06 10e9/L (N) 03-26-2012 Ryan Shetty 02:00-0400 VIKTORIYA WOLF ([id number]) (Work Phone: ) ABS EOS 0.21 10e9/L (N) 03-26-2012 Ryan Shetty 02:00-0400 VIKTORIYA WOLF ([id number]) (Work Phone: ) ABS MONO 0.78 10e9/L (N) 03-26-2012 Ryan Shetty 02:00-0400 VIKTORIYA WOLF ([id number]) (Work Phone: ) ABS EDY 2.46 10e9/L (N) 03-26-2012 Ryan Shetty 02:00-0400 VIKTORIYA WOLF ([id number]) (Work Phone: ) RDW-SD 48.1 fL (N) 03-26-2012 Ryan Shetty 02:00-0400 VIKTORIYA WOLF ([id number]) (Work Phone: ) Vital Signs Vital Sign Value Interpretation Reference Date [facility] ([facility] (Normalized) Range BMI (Body Mass 34.7 kg/m2 (no code) 15 - 25 kg/m2 02-27-2019 [facility] [place] [facility]) 02:00 VIKTORIYA Schmid MD ([id number]) (Work Phone: ) BMI (Body Mass 34.3 kg/m2 (no code) 15 - 25 kg/m2 11-01-2018 [facility] [place] Ryan [place] Index) 02: VIKTORIYA Schmid MD ([id number]) (Work Phone: ) BMI (Body Mass 34.3 kg/m2 (no code) 15 - 25 kg/m2 10-08-2018 [facility] [place] Ryan [place] Index) 02: VIKTORIYA Schmid MD ([id number]) (Work Phone: ) BMI (Body Mass 34.9 kg/m2 (no code) 15 - 25 kg/m2 09-27-2018 [facility] [place] Ryan [place] Index) 02: VIKTORIYA Schmid MD ([id number]) (Work Phone: ) BMI (Body Mass 34.7 kg/m2 (no code) 15 - 25 kg/m2 09-11-2018 [facility] [place] Ryan [place] Index) 02: VIKTORIYA Schmid MD ([id number]) (Work Phone: ) BMI (Body Mass 33.4 kg/m2 (no code) 15 - 25 kg/m2 06-04-2018 [facility] [place] Index) 13:000 VIKTORIYA Schmid MD ([id number]) (Work Phone: ) BMI (Body Mass 33 kg/m2 (no code) 15 - 25 kg/m2 03-27-2018 [facility] [place] Ryan [place]a Index) 02:00 VIKTORIYA Schmid MD ([id number]) (Work Phone: ) BMI (Body Mass 33.4 kg/m2 (no code) 15 - 25 kg/m2 03-19-2018 [facility] [place] Index) 02:00-0400 [facility] ([id number]) (Work Phone: ) BMI (Body Mass 34 kg/m2 (no code) 15 - 25 kg/m2 01-30-2018 Ryan [place] Gregory [place] Index) 02:00[facility] ([id number]) (Work Phone: ) BMI (Body Mass 34.1 kg/m2 (no code) 15 - 25 kg/m2 12-26-2017 [facility] Vernony Sena Index) 02:00[facility] ([id number]) (Work Phone: ) BMI (Body Mass 34.4 kg/m2 (no code) 15 - 25 kg/m2 10-19-2017 Ho lly Sena Ryan [place] Index) 02:00[facility] ([id number]) (Work Phone: ) BMI (Body Mass 34.9 kg/m2 (no code) 15 - 25 kg/m2 09-18-2017 Ho lly [place] Ryan Sena Index) 02:00[facility] ([id number]) (Work Phone: ) Body weight 116 kg (N) kg 02-27-2019 Ryan Rehmanarianne Vernony [place] 02:0076[facility] ([id number]) (Work Phone: ) Body weight 115 kg (N) kg 11-01-2018 Ryanbryan RehmanSenaarianne Vernony Sena 02:00[facility] ([id number]) (Work Phone: ) Body weight 115 kg (N) kg 10-08-2018 Ryan Shetty 02:00[facility] ([id number]) (Work Phone: ) Body weight 117 kg (N) kg 09-27-2018 Ryan Sena Shetty 02:00[facility] ([id number]) (Work Phone: ) Body weight 116 kg (N) kg 09-11-2018 Ryan Shetty 02:00 [id number] [facility] ([id number]) (Work Phone: ) Body weight 112 kg (N) kg 06-04-2018 Ryan Shetty 13: [id number] [facility] ([id number]) (Work Phone: ) Body weight 110 kg (N) kg 03-27-2018 Ryan Shetty 02: [id number] [facility] ([id number]) (Work Phone: ) Body weight 112 kg (N) kg 03-19-2018 Ryan Shetty 02: [id number] [facility] ([id number]) (Work Phone: ) Body weight 114 kg (N) kg 01-30-2018 Ryan Shetty 02: [id number] [facility] ([id number]) (Work Phone: ) Body weight 114 kg (N) kg 12-26-2017 Ryan Shetty 02: [id number] [facility] ([id number]) (Work Phone: ) Body weight 114 kg (N) kg 11-21-2017 Ryan Shetty 02: [id number] [facility] ([id number]) (Work Phone: ) Body weight 115 kg (N) kg 10-19-2017 Ryan Shetty 02: [id number] , [facility] ([id number]) (Work Phone: ) Body weight 117 kg (N) kg 09-18-2017 Ryan Shetty 02: [id number] [facility] ([id number]) (Work Phone: ) Body weight 114 kg (N) kg 07-21-2017 Ryan Shetty 13: [facility] ([id number]) (Work Phone: ) Body weight 113 kg (N) kg 05-04-2017 Ryan Shetty 13:00-0500 [id number] [facility] ([id number]) (Work Phone: ) Body weight 115 kg (N) kg 03-30-2017 Ryan Shetty 02:00-0400 [id number] [facility] ([id number]) (Work Phone: ) Body weight 115 kg (N) kg 03-02-2017 Ryan Shetty 02:00-040 [id number] [facility] ([id number]) (Work Phone: ) Body weight 112 kg (N) kg 01-31-2017 Ryan Shetty 02:00-040 [id number] [facility] ([id number]) (Work Phone: ) Body weight 117 kg (N) kg 10-25-2016 Ryan Shetty 02:00 79101 , [facility] ([id number]) (Work Phone: ) Body weight 118 kg (N) kg 07-27-2016 Ryan Shetty 13:00-0500 [id number] , [facility] ([id number]) (Work Phone: ) Body weight 117 kg (N) kg 05-26-2016 Ryan Shetty 13:00-0500 [id number] , [facility] ([id number]) (Work Phone: ) Body weight 115 kg (N) kg 05-12-2016 Ryan Shetty 13:00-0500 [id number] , [facility] ([id number]) (Work Phone: ) Body weight 118 kg (N) kg 02-23-2016 Ryan Shetty 02:00-040 58553 , [facility] ([id number]) (Work Phone: ) Body weight 118 kg (N) kg 12-10-2015 Ryan Shetty 02:00040 [facility] ([id number]) (Work Phone: ) Body weight (N) 11-19-2015 Ryan acuña 02:00-0400 [id number] [facility] ([id number]) (Work Phone: ) Body weight 115 kg (N) kg 11-10-2015 Ryan Shetty 02:00-0400 [id number] [facility] ([id number]) (Work Phone: ) Body weight 119 kg (N) kg 08-07-2015 Ryan Shetty 13:00-0500 [id number] [facility] ([id number]) (Work Phone: ) Body weight 119 kg (N) kg 07-07-2015 Ryan Shetty 13:00-0500 [id number] , [facility] ([id number]) (Work Phone: ) Body weight 114 kg (N) kg 04-02-2015 Ryan Shetty 02:00-0400 [id number] , [facility] ([id number]) (Work Phone: ) Body weight 117 kg (N) kg 10-22-2014 Ryan Shetty 02:00-0400 [id number] , [facility] ([id number]) (Work Phone: ) Body weight 116 kg (N) kg 09-26-2014 Ryan Shetty 02:00-0400 [id number] , [facility] ([id number]) (Work Phone: ) Body weight 117 kg (N) kg 07-01-2014 Ryan Shetty 13:00-0500 [id number] [facility] ([id number]) (Work Phone: ) Body weight 119 kg (N) kg 06-09-2014 Ryan Shetty 13:00-0500 [id number] , [facility] ([id number]) (Work Phone: ) Body weight 118 kg (N) kg 05-07-2014 Ryan Shetty 13:00-0500 [id number] , [facility] ([id number]) (Work Phone: ) Body weight 114 kg (N) kg 04-21-2014 Ryan Shetty 02:00 09358 [facility] ([id number]) (Work Phone: ) Body weight 116 kg (N) kg 11-14-2013 Ryan Shetty 02:00040 [id number] , [facility] ([id number]) (Work Phone: ) Body weight 115 kg (N) kg 10-24-2013 Ryan Shetty 02:00040 [id number] , [facility] ([id number]) (Work Phone: ) Body weight 114 kg (N) kg 06-24-2013 Ryan Shetty 13:00-050 [id number] , [facility] ([id number]) (Work Phone: ) Body weight 113 kg (N) kg 06-05-2013 Ryan Shetty 13:00050 [id number] [facility] ([id number]) (Work Phone: ) Body weight 110 kg (N) kg 04-01-2013 Ryan Shetty 02:00 25897 [facility] ([id number]) (Work Phone: ) Body weight 110 kg (N) kg 01-29-2013 Ryan Shetty 02:00 93589 , [facility] ([id number]) (Work Phone: ) Body weight 113 kg (N) kg 10-01-2012 Ryan Shetty 02:00040 [id number] , [facility] ([id number]) (Work Phone: ) Body weight 109 kg (N) kg 06-29-2012 Ryan Shetty 13:00-050 [id number] [facility] ([id number]) (Work Phone: ) Body weight 111 kg (N) kg 05-28-2012 Ryan Shetty 13: [facility] ([id number]) (Work Phone: ) Body weight 64 kg (N) kg 04-02-2012 Ryan Shetty 02: [facility] ([id number]) (Work Phone: ) Body weight 111 kg (N) kg 01-24-2012 Ryan Shetty 02: [facility] ([id number]) (Work Phone: ) Body weight 111 kg (N) kg 05-30-2011 Ryan Shetty 13: [facility] ([id number]) (Work Phone: ) Blood Pressure 124/ (N,N) Systolic: - 02-27-2019 Ryan Shetty 60mm[Hg] 120 mm[Hg] 02: [facility] ([id number]) (Work Diastolic: 60 Phone: - 80 mm[Hg] ) Blood Pressure 114/ (N,N) Systolic: 11-01-2018 Ryan Shetty 58mm[Hg] 120 mm[Hg] 02:[facility] ([id number]) (Work Diastolic: 60 Phone: - 80 mm[Hg] ) Blood Pressure 114/ (N,N) Systolic: 10-08-2018 Ryan Shetty 58mm[Hg] 120 mm[Hg] 02:[facility] ([id number]) (Work Diastolic: 60 Phone: - 80 mm[Hg] ) Blood Pressure 120/ (N,N) Systolic: 09-27-2018 Ryan Shetty 68mm[Hg] 120 mm[Hg] 02: [facility] ([id number]) (Work Diastolic: 60 Phone: - 80 mm[Hg] ) Blood Pressure 136/ (N,N) Systolic: 09-11-2018 Ryan Shetty 68mm[Hg] 120 mm[Hg] 02:[facility] ([id number]) (Work Diastolic: 60 Phone: - 80 mm[Hg] ) Blood Pressure 130/ (N,N) Systolic: 06-04-2018 Ryan Shetty 70mm[Hg] 120 mm[Hg] 13: 77909 [facility] ([id number]) (Work Diastolic: 60 Phone: - 80 mm[Hg] ) Blood Pressure 142/ (N,N) Systolic: 03-27-2018 Ryan Shetty 74mm[Hg] 120 mm[Hg] 02:[facility] ([id number]) (Work Diastolic: 60 Phone: - 80 mm[Hg] ) Blood Pressure 112/ (N,N) Systolic: 03-19-2018 Ryan Shetty 58mm[Hg] 120 mm[Hg] 02:[facility] ([id number]) (Work Diastolic: 60 Phone: - 80 mm[Hg] ) Blood Pressure 148/ (N,N) Systolic: 01-30-2018 Ryan Shetty 70mm[Hg] 120 mm[Hg] 02:[facility] ([id number]) (Work Diastolic: 60 Phone: - 80 mm[Hg] ) Blood Pressure 140/ (N,N) Systolic: 12-26-2017 Ryan Shetty 70mm[Hg] 120 mm[Hg] 02:[id number] ([id number]) (Work Diastolic: 60 Phone: - 80 mm[Hg] ) Blood Pressure 128/ (N,N) Systolic: 11-21-2017 Ryan Shetty 74mm[Hg] 120 mm[Hg] 02:[facility] ([id number]) (Work Diastolic: 60 Phone: - 80 mm[Hg] ) Blood Pressure 132/ (N,N) Systolic: 90 - 10-19-2017 Ryan [place] Ryan Shetty 66mm[Hg] 120 mm[Hg] 02: VIKTORIYA Schmid MD ([id number]) (Work Diastolic: 60 Phone: - 80 mm[Hg] ) Blood Pressure 158/ (N,N) Systolic: 90 - 09-18-2017 Ryan Sena Ryan Shetty 78mm[Hg] 120 mm[Hg] 02: [facility] ([id number]) (Work Diastolic: 60 Phone: - 80 mm[Hg] ) Height 183 cm (N) cm 02-27-2019 Ryan Shetyt Madi william Shetty 02:00 [facility] ([id number]) (Work Phone: ) Height 183 cm (N) cm 11-01-2018 Ryan Shetty 02: [facility] ([id number]) (Work Phone: ) Height 183 cm (N) cm 10-08-2018 Ryan Shetty 02: [facility] ([id number]) (Work Phone: ) Height 183 cm (N) cm 09-27-2018 Ryan Shetty 02: [facility] ([id number]) (Work Phone: ) Height 183 cm (N) cm 09-11-2018 Ryan Shetty 02:00 [facility] ([id number]) (Work Phone: ) Height 183 cm (N) cm 06-04-2018 Ryan Shetty 13:00050 VIKTORIYA Schmid MD ([id number]) (Work Phone: ) Height 183 cm (N) cm 03-27-2018 Ryan Shetty 02:00 [facility] ([id number]) (Work Phone: ) Height 183 cm (N) cm 03-19-2018 Ryanbryan Barraza william Sena 02:00762 [facility] ([id number]) (Work Phone: ) Height 183 cm (N) cm 01-30-2018 Ryan Barraza william Sena 02:[facility] ([id number]) (Work Phone: ) Height 183 cm (N) cm 12-26-2017 Ryan Rehmanston Madi william [place] 02:00762 [facility] ([id number]) (Work Phone: ) Height 183 cm (N) cm 10-19-2017 Ryan Barraza william [place] 02:[facility] ([id number]) (Work Phone: ) Height 183 cm (N) cm 09-18-2017 Ryanbryan Barraza william Sena 02:[facility] ([id number]) (Work Phone: ) Pulse (Heart 63 /min (N) 60 - 100 /min 02-27-2019 Ryan Gregory [place] Rate) 02:00-399VIKTORIYA Crespo MD ([id number]) (Work Phone: ) Pulse (Heart 79 /min (N) 60 - 100 /min 11-01-2018 Ryan Gregory Sena Rate) 02:00-399[facility] ([id number]) (Work Phone: ) Pulse (Heart 70 /min (N) 60 - 100 /min 10-08-2018 Ryan Vernony Sena Rate) 02:00-399[facility] ([id number]) (Work Phone: ) Pulse (Heart 72 /min (N) 60 - 100 /min 09-27-2018 Ryan Gregory [place] Rate) 02:00 VIKTORIYA Schmid MD ([id number]) (Work Phone: ) Pulse (Heart 70 /min (N) 60 - 100 /min 09-11-2018 Ryan Cr anston Ryan Sena Rate) 02:00-0400 [id number] Crespo MD ([id number]) (Work Phone: ) Pulse (Heart 71 /min (N) 60 - 100 /min 06-04-2018 Ryan Cr [place] Ryan Sena Rate) 13:00-0500 VIKTORIYA Schmid MD ([id number]) (Work Phone: ) Pulse (Heart 72 /min (N) 60 - 100 /min 03-27-2018 Ryan Cr [place] Ryan Sena Rate) 02:00-0400 VIKTORIYA Schmid MD ([id number]) (Work Phone: ) Pulse (Heart 64 /min (N) 60 - 100 /min 03-19-2018 Ryan Cr [place] Ryan [place] Rate) 02:00-0400 VIKTORIYA Schmid MD ([id number]) (Work Phone: ) Pulse (Heart 78 /min (N) 60 - 100 /min 01-30-2018 Ryan Cr [place] Ryan Sena Rate) 02:00-0400 VIKTORIYA Schmid MD ([id number]) (Work Phone: ) Pulse (Heart 82 /min (N) 60 - 100 /min 12-26-2017 Ryan Cr [place] Ryan [place] Rate) 02:00-0400 VIKTORIYA Schmid MD ([id number]) (Work Phone: ) Pulse (Heart 78 /min (N) 60 - 100 /min 11-21-2017 Ryan Cr [place] Ryan Sena Rate) 02:00-0400 VIKTORIYA Schmid MD ([id number]) (Work Phone: ) Pulse (Heart 87 /min (N) 60 - 100 /min 10-19-2017 Ryan Cr [place] Ryan Sena Rate) 02:00-0400 VIKTORIYA Schmid MD ([id number]) (Work Phone: ) Pulse (Heart 80 /min (N) 60 - 100 /min 09-18-2017 Ryan Shetty Rate) 02:00-399 63670 [facility] ([id number]) (Work Phone: ) Pulse Oximetry 95 % (N) 95 - 100 % 02-27-2019 Ryan Shetty 02:00-040 [id number] [facility] ([id number]) (Work Phone: ) Pulse Oximetry 98 % (N) 95 - 100 % 11-01-2018 Ryan Shetty 02:[id number] [facility] ([id number]) (Work Phone: ) Pulse Oximetry 96 % (N) 95 - 100 % 10-08-2018 Ryan Shetty 02:[id number] [facility] ([id number]) (Work Phone: ) Pulse Oximetry 96 % (N) 95 - 100 % 09-27-2018 Ryan Shetty 02:00-399[facility] ([id number]) (Work Phone: ) Pulse Oximetry 96 % (N) 95 - 100 % 09-11-2018 Ryan hSetty 02:[id number] [facility] ([id number]) (Work Phone: ) Pulse Oximetry 98 % (N) 95 - 100 % 06-04-2018 Ryan Shetty 13:00050 [facility] ([id number]) (Work Phone: ) Pulse Oximetry 97 % (N) 95 - 100 % 03-27-2018 Ryan Shetty 02:00040 [facility] ([id number]) (Work Phone: ) Pulse Oximetry 98 % (N) 95 - 100 % 03-19-2018 Ryan Shetty 02:00-040 [facility] ([id number]) (Work Phone: ) Pulse Oximetry 95 % (N) 95 - 100 % 01-30-2018 Ryan Shetty 02:00-0400 [id number] Crespo MD ([id number]) (Work Phone: ) Pulse Oximetry 95 % (N) 95 - 100 % 12-26-2017 Ryan Shetty 02:00-0400 [id number] [facility] ([id number]) (Work Phone: ) Pulse Oximetry 96 % (N) 95 - 100 % 11-21-2017 Ryan Shetty 02:00-0400 [id number] [facility] ([id number]) (Work Phone: ) Pulse Oximetry 98 % (N) 95 - 100 % 10-19-2017 Ryan Shetty 02:00-0400 28077 [facility] ([id number]) (Work Phone: ) Pulse Oximetry 98 % (N) 95 - 100 % 09-18-2017 Ryan Rehmanston 02:00-0400 [id number] Brewer MD ([id number]) (Work Phone: ) Interventions No Information Plan of Treatment Normalized Care Care Detail Care Activity Date Care Provider F acility Activity C-Reactive Protein Goal: C-Reactive [place] [id number] Ryan Shetty MD, Qnt Protein Qnt Notes: [facility] ([id number]) (Work Phone: ) CT LUMBAR SPINE W/O Goal: CT LUMBAR [place] [address] Ryan Shetty MD, DYE SPINE W/O DYE Notes: [facility] ([id number]) (Wo rk Phone: ) Development of care Edema - pt has been 09-11-2018 [place] [phone] Ryan Shetty MD, plan advised to elevate [facility] ([id number]) (Work legs to prevent Phone: dependent edema, ) compression has been recommended to help to naturally decrease peripheral edema. Diuretic use has been discussed and pt has been instructed in appropriate use of such medication as necessary to further attempt to reduce peripheral edema.Hypertension - well controlled - continue with current medications, continue with no added salt diet. Pt has been encouraged to exercise daily.The pt has been advised to call the office if there are any acute concerns about change in blood pressure readings at home.Joint pain -use tylenol as directed-check labs- call if pain does not resolve DM-check labs Development of care Hypertension - well 06-04-2018 Ryan mason [id number] Ryan Shetty MD, plan controlled - [facility] ([id number]) (Work continue with Phone: current medications, ) continue with no added salt diet. Pt has been encouraged to exercise daily.The pt has been advised to call the office if there are any acute concerns about change in blood pressure readings at home.Diabetes Mellitus - controlled - per recent FSBS reports. I have recommended for the patient to have follow up labs prior to the next office visit. The patient has been instructed to continue with current medications as previously directed, continue with regular FSBS monitoring to assure continued control of diabetes. Pt to call for any acute concerns, complaints, or if the blood glucose readings are starting to become less controlled.Cough - recent dx of pneumonia - pt sent to hospital for xray. extension of antibiotics - doxycycline 100mg bid x 7 more days. Development of care Medicare Exam - 03-27-2018 Ryan Shetty [id number] Ryna Shetty MD, plan today we discussed [facility] ([id number]) (Work the patients past Phone: history, ) immunizations, preventative exams/evaluations - colonoscopy, fecal occult blood testing, routine labs for renal function, glucose, cholesterol, osteoporosis evaluations, cardiovascular testing and cancer screenings. We have also discussed mental health and the signs/symptoms of depression. The patient was advised of home safety evaluations and the need to make sure that as the aging process continues, we need to be aware of different ways to make the home a safer place to reside. The patient has also been counseled that exercise is necessary - and of utmost importance as we age to help decrease fall risk and to maintain independence in the home.Today we discussed the need for the patient to create paperwork for Advanced directives as well as for the patient to provide this office with a copy of her DOPA paperwork for health care surrogate.Cough- improving -call if symptoms do not resolve Development of care Diabetes Mellitus - 03-19-2018 Ryan mason [id number] Ryan Shetty MD, plan controlled - per [facility] ([id number]) (Work recent FSBS reports. Phone: I have recommended ) for the patient to have follow up labs prior to the next office visit. The patient has been instructed to continue with current medications as previously directed, continue with regular FSBS monitoring to assure continued control of diabetes. Pt to call for any acute concerns, complaints, or if the blood glucose readings are starting to become less controlled.Left hip pain - I have recommended a referral to Dr. Salgado for injection bursa at iliac crest.Hypertension - well controlled - continue with current medications, continue with no added salt diet. Pt has been encouraged to exercise daily.The pt has been advised to call the office if there are any acute concerns about change in blood pressure readings at home.Thrush - rx for nystatin swish and swallow. Development of care Hypertension - well 01-30-2018 Ryan mason [id number] Ryan Shetty MD, plan controlled - [facility] ([id number]) (Work continue with Phone: current medications, ) continue with no added salt diet. Pt has been encouraged to exercise daily.The pt has been advised to call the office if there are any acute concerns about change in blood pressure readings at home.Myalgias - improved - no change in current management Development of care Hypertension - well 12-26-2017 Ryan mason [phone] Ryan Shetty MD, plan controlled - [facility] ([id number]) (Work continue with Phone: current medications, ) continue with no added salt diet. Pt has been encouraged to exercise daily.The pt has been advised to call the office if there are any acute concerns about change in blood pressure readings at home.Myalgias - stop pravastatin - continue with coenzyme q10. Monitor symptoms. Urinary frequency - check urinalysis. Development of care Hospital follow up - 11-21-2017 yRan acuña [id number] Ryan Shetty MD, plan This was a follow up [facility] ([id number]) (Wo rk appointment from the Phone: patient's ) hospitalization during which time Dr. Shetty formulated the assessment and plan for the follow up on this patient's medical condition. Development of care Esophageal Reflux - 10-19-2017 Ryan mason [id number] Ryan Shetty MD, plan the patient has been [facility] ([id number]) (Wo rk counseled against Phone: excessive intake of ) caffeine, spicy foods, peppermint, and cinnamon - all of which can exacerbate esophageal reflux.The patient is to take medications as prescribed and call the office if the symptoms are not improving. Development of care Diabetes Mellitus - 09-18-2017 Ryan mason [id number] Ryan Shetty MD, plan controlled - per [facility] ([id number]) (Work recent FSBS reports. Phone: I have recommended ) for the patient to have follow up labs prior to the next office visit. The patient has been instructed to continue with current medications as previously directed, continue with regular FSBS monitoring to assure continued control of diabetes. Pt to call for any acute concerns, complaints, or if the blood glucose readings are starting to become less controlled.Hypertens ion - well controlled - continue with current medications, continue with no added salt diet. Pt has been encouraged to exercise daily.The pt has been advised to call the office if there are any acute concerns about change in blood pressure readings at home. Development of care Recurrent urinary 07-21-2017 Ryan Connello n [phone] Ryan Shetty MD, plan tract infection - [facility] ([id number]) (Work monitor symptoms - Phone: pt has had full ) treatment for infection and is to let us know if infection symptoms return. Development of care Right hip pain 09-27-2018 Ryan Shetty [phone] Ryan Shetty MD, plan -discussed with Dr SADLER ([id number]) (Work [facility] office-okay Phone: for injection today ) -instructed patient to follow up with them if pain does not resolve-kenalog injection today in the office- recommend heat this evening -instructed patient to call if symptoms do not improve or if any worse. Development of care Hypertension - well 10-08-2018 Ryan mason [id number] Ryan Shetty MD, plan controlled - [facility] ([id number]) (Work continue with Phone: current medications, ) continue with no added salt diet. Pt has been encouraged to exercise daily.The pt has been advised to call the office if there are any acute concerns about change in blood pressure readings at home.Diabetes Mellitus - controlled - per recent FSBS reports. I have recommended for the patient to have follow up labs prior to the next office visit. The patient has been instructed to continue with current medications as previously directed, continue with regular FSBS monitoring to assure continued control of diabetes. Pt to call for any acute concerns, complaints, or if the blood glucose readings are starting to become less controlled.Sciatica- exercises discussed with the patient, pt to start on steroid at low dose. Pt is to call if the symptoms do not improve or if they worsen. Due to uncontrolled symptoms, I have recommended a referral to laura avila Development of care Hypertension - well 11-01-2018 Ryan mason 51586 Ryan Shetty MD, [email or web address] ([id number]) (Work continue with Phone: current medications, ) continue with no added salt diet. Pt has been encouraged to exercise daily.The pt has been advised to call the office if there are any acute concerns about change in blood pressure readings at home.Back pain - Sciatica - pt has not had any improvement with therapy - He cannot have an MRI due to his pacemaker - therefore - order for CT scan of back/pelvis - we may need to do a referral to [facility] for injection into low back depending on the CT scan report. Development of care Hypertension - well 02-27-2019 Ryan mason [id number] Ryan Shetty MD, [email or web address] ([id number]) (Work continue with Phone: current medications, ) continue with no added salt diet. Pt has been encouraged to exercise daily.The pt has been advised to call the office if there are any acute concerns about change in blood pressure readings at home.Diabetes Mellitus - controlled - per recent FSBS reports. I have recommended for the patient to have follow up labs prior to the next office visit. The patient has been instructed to continue with current medications as previously directed, continue with regular FSBS monitoring to assure continued control of diabetes. Pt to call for any acute concerns, complaints, or if the blood glucose readings are starting to become less controlled.Hyperlipi demia - pt has been counseled about appropriate diet, exercise, and need for low fat food choices. I have discussed the need for the patient to take medications as prescribed. If the patient has negative side effects from the medication, they are to CALL the office and not abruptly discontinue the medication without discussion with a practitioner in the office. We will check labs in 3-6 months for follow up on the patient's chronic medical problem and to assure normal liver response to medications.Back pain - discussed with the pt - he needs to talk to his back specialist about a possible nerve ablation. Lipid Goal: Lipid Notes: no information Ryan Shetty [phone] Ryan Shetty MD, [facility] ([id number]) (Work Phone: ) Patient referral Notes: Patient 03-26-2018 Ryan Shetty [phone] Ryan Shetty MD, informed. Referral [facility] ([id number]) (Work info faxed. - Phone: Provider: Damian ) Suraj - Address:, , , Sed Rate Goal: Sed Rate no information Ryan Shetty [phone] Ryan Shetty MD, Notes: [facility] ([id number]) (Work Phone: ) Tsh Goal: Tsh Notes: no information Ryan Shetty [phone] Ryan Shetty MD, [facility] ([id number]) (Work Phone: ) Goals No Information Social History The data below is from unstructured sources History Response Recorde d Date/Time Hx Family Cancer Y oldest son 11/16/12 1:00am Hx Family Breast Cancer N 11/16/12 1:00am Hx Family Lung Cancer N 11/16/12 1:00am Hx Family Colorectal Cancer N 11/16/12 1:00am History Response Recorde d Date/Time Alcohol Use Denies Use 0 11/16/12 1:00am Recreational Drug Use N 11/16/12 1:00am Recent Foreign Travel N 11/16/12 1:00am Recent Infectious Disease Exposure N 11/16/12 1:00am Hospitalization with Isolation Denies 11/23/12 11:53pm History Response Recorde d Date/Time Alcohol Use Denies Use 0 11/16/12 1:00am Recreational Drug Use N 11/16/12 1:00am Recent Foreign Travel N 11/16/12 1:00am Recent Infectious Disease Exposure N 11/16/12 1:00am Hospitalization with Isolation Denies 11/16/12 4:40pm History Response Recorde d Date/Time Hx Family Cancer Y oldest son 01/06/13 8:30pm Hx Family Breast Cancer N 01/06/13 8:30pm Hx Family Lung Cancer N 01/06/13 8:30pm Hx Family Colorectal Cancer N 01/06/13 8:30pm Hx Family Cardiac Disorders Y 01/06/13 8:30pm Hx Family Stroke N 01/06 8:30pm Hx Family Hypertension N 01/06/13 8:30pm Hx Family Myocardial Infarction Y dad 01/06/13 8:30pm Hx Family Cystic Fibrosis N 01/06/13 8:30pm History Response Recorde d Date/Time Alcohol Use Denies Use 0 01/06/13 8:30pm Recreational Drug Use N 01/06/13 8:30pm Recent Foreign Travel N 01/06/13 8:30pm Recent Infectious Disease Exposure N 01/06/13 8:30pm Hospitalization with Isolation Denies 01/11/13 12:41pm Sexually Transmitted Disease N 01/06/13 8:30pm HIV/AIDS N 01/06/13 8:30 pm History Response Recorde d Date/Time Hx Family Cancer Y oldest son 05/15/11 11:00pm Hx Family Breast Cancer N 05/15/11 11:00pm Hx Family Lung Cancer N 05/15/11 11:00pm Hx Family Colorectal Cancer N 05/15/11 11:00pm History Response Recorde d Date/Time Alcohol Use Denies Use 0 10/27/12 8:21pm Recreational Drug Use N 10/27/12 8:21pm Functional Status The data below is from unstructured sourcesNo Functional Status dataNo Functional Status dataNo Functional Status dataNo Functional Status dataNo Functional Status dataNo Functional Status dataNo Functional Status dataNo Functional Status dataNo Functional Status dataNo Functional S tatus dataNo Functional Status dataNo Functional Status dataNo Functional Status dataNo Functional Status dataNo Functional Status dataNo Functional Status data No Functional Status dataNo Functional Status dataNo Functional Status dataNo Fu nctional Status dataNo Functional Status dataNo Functional Status dataNo Functio nal Status dataNo Functional Status dataNo Functional Status dataNo Functional S tatus dataNo Functional Status dataNo Functional Status dataNo Functional Status data Mental Status No Information Encounters Encounter Normalized Encounter Encounter Diagnosis Care Provi domingo Organization Date Type 02-16-2019 Emergency department no information no name no organization name patient visit 02-16-2019 Emergency department no information [place] [facility] (no [facility] - patient visit phone) [facility] 02-16-2019 (no phone) 02-14-2019 Emergency department no information ARIK CAZARES [facility] - patient visit (no phone) [facility] 02-14-2019 (no phone) [facility] Emergency department no information no name no organization name 11-11-2017 patient visit 08-05-2017 Emergency department no information no name no organization name - patient visit 08-06-2017 08-05-2017 Emergency department no information MAGDALENA CROWE DO (no [facility] - patient visit phone) [facility] 08-05-2017 (no phone) 07-11-2017 Emergency department no information no name no organization name patient visit 10-28-2015 Emergency department no information no name no organization name - patient visit 10-28-2015 10-28-2015 Emergency department no information MAGDALENA CROWE DO (no [facility] - patient visit phone) [facility] 10-28-2015 (no phone) 06-18-2015 Emergency department no information no name no organization name - patient visit 06-19-2015 06-18-2015 Emergency department no information MAGDALENA CROWE DO (no [facility] - patient visit phone) [facility] 06-18-2015 (no phone) 11-19-2014 Emergency department no information no name no organization name - patient visit 11-19-2014 11-19-2014 Emergency department no information ARIK CAZARES [facility] - patient visit (no phone) [facility] 11-19-2014 (no phone) 02-07-2014 Emergency department no information no name no organization name - patient visit 02-07-2014 02-07-2014 Emergency department no information no name no organization name - patient visit 02-07-2014 11-11-2017 Evaluation and no information JUAN J ALEMAN MD (no [facility] - management of phone) [facility] 11-14-2017 inpatient (no phone) 07-11-2017 Evaluation and no information no name no organ ization name - management of 07-13-2017 inpatient 07-11-2017 Evaluation and no information RYAN SHETTY MD [facility] (no phone) 03-18-2017 Evaluation and no information no name no organ ization name - management of 03-19-2017 inpatient 03-18-2017 Evaluation and no information RYAN SHETTY MD [facility] [address] - management [facility] (no phone) [facility] 03-19-2017 inpatient (no phone) 04-27-2016 Evaluation and no information no name no organ ization name - management of 05-02-2016 inpatient 04-27-2016 Evaluation and no information RYAN SHETTY MD [facility] [address] - management of (no phone) [facility] 05-02-2016 inpatient (no phone) 04-24-2016 Evaluation and no information no name no organ ization name - management of 04-27-2016 inpatient 04-24-2016 Evaluation and no information RAFAL Hernandez [facility] - management of (no phone) [facility] 04-27-2016 inpatient (no phone) 02-26-2015 Evaluation and no information no name no organ ization name - management of 02-27-2015 inpatient 02-26-2015 Evaluation and no information JUAN J ALEMAN MD (no [facility] - management of phone) [facility] 02-27-2015 inpatient (no phone) 04-21-2014 Evaluation and no information no name no organ ization name - management of 04-23-2014 inpatient 04-21-2014 Evaluation and no information no name no organ ization name - management of 04-23-2014 inpatient 09-27-2018 Office outpatient Pain in right hip Jojo wilcox (no Ryan Shetty MD, [facility] visit 15 minutes phone) (no phone) 01-30-2018 Office outpatient Essential (primary) Ryan cruz (no VIKTORIYA Meza MD visit 15 minutes hypertension phone) (no phone) 10-19-2017 Office outpatient Esophageal disorders Jojo estrada (no Ryan Shetty MD, [facility] visit 15 minutes phone) (no phone) 02-27-2019 Office outpatient Essential (primary) Ryan cruz (no Ryan Shetty MD, [facility] visit 25 minutes hypertension phone) (no phone) 11-01-2018 Office outpatient Essential (primary) Ryan Jack n (no Ryan Shetty MD, [facility] visit 25 minutes hypertension phone) (no phone) 10-08-2018 Office outpatient Essential (primary) Ryan cruz (no Ryan Shetty MD, [facility] visit 25 minutes hypertension phone) (no phone) 09-11-2018 Office outpatient Localized edema Jojo Saleh (no Ryan Shetty MD, [facility] visit 25 minutes phone) (no phone) 06-04-2018 Office outpatient Cough Ryan Shetty (no Madi Shetty MD, [facility] visit 25 minutes phone) (no phone) 03-19-2018 Office outpatient Type 2 diabetes Ryan Shetty (n o [facility] visit 25 minutes mellitus without phone) (no phone) complications 12-26-2017 Office outpatient Essential (primary) Ryan cruz (no [facility] visit 25 minutes hypertension phone) (no phone) 11-21-2017 Office outpatient Encounter for Nayla Wynne (no [facility] visit 25 minutes follow-up examination phone) (no ph one) after completed treatment for conditions other than malignant neoplasm 09-18-2017 Office outpatient Type 2 diabetes Ryan Shetty (n o [facility] visit 25 minutes mellitus without phone) (no phone) complications 05-01-2018 Patient encounter no information no name no or ganization name 11-11-2017 Patient encounter no information no name no or ganization name - 11-14-2017 07-11-2017 Patient encounter no information no name no or ganization name - 07-13-2017 06-12-2017 Patient encounter no information no name no or ganization name - 06-13-2017 05-11-2017 Patient encounter no information no name no or ganization name 03-18-2017 Patient encounter no information no name no or ganization name - 03-19-2017 03-09-2017 Patient encounter no information no name no or ganization name 02-28-2017 Patient encounter no information no name no or ganization name 07-18-2016 Patient encounter no information no name no or ganization name - 07-18-2016 05-27-2016 Patient encounter no information no name no or ganization name - 05-28-2016 03-24-2016 Patient encounter no information no name no or ganization name 01-29-2016 Patient encounter no information no name no or ganization name - 01-29-2016 01-27-2016 Patient encounter no information no name no or ganization name - 01-27-2016 11-17-2015 Patient encounter no information no name no or ganization name 11-03-2015 Patient encounter no information no name no or ganization name - 11-03-2015 10-30-2015 Patient encounter no information no name no or ganization name - 10-30-2015 07-01-2015 Patient encounter no information PERNELL BASILIO MD ( no [facility] phone) [facility] (no phone) 04-01-2015 Patient encounter no information no name no or ganization name - 06-30-2015 03-18-2015 Patient encounter no information no name no or ganization name - 03-19-2015 01-28-2015 Patient encounter no information no name no or ganization name 10-29-2014 Patient encounter no information no name no or ganization name - 12-04-2014 10-01-2014 Patient encounter no information ANDREW HEWITT MD ( no [facility] - phone) [facility] 10-01-2014 (no phone) 09-24-2014 Patient encounter no information no name no or ganization name 08-22-2014 Patient encounter no information no name no or ganization name 11-21-2013 Patient encounter no information no name no or ganization name 10-08-2013 Patient encounter no information no name no or ganization name - 10-08-2013 08-20-2013 Patient encounter no information no name no or ganization name - 08-20-2013 08-14-2013 Patient encounter no information no name no or ganization name 07-10-2013 Patient encounter no information no name no or ganization name 04-10-2013 Patient encounter no information no name no or ganization name - 07-09-2013 11-23-2012 Patient encounter no information no name no or ganization name - 11-23-2012 06-29-2012 Patient encounter no information no name no or ganization name 11-12-2019 Patient encounter no information MICHAEL SIMPSON I [facility] procedure (no phone) [facility] (no phone) 11-04-2019 Patient encounter no information ALI SAMUEL MA FSCA I [facility] procedure (no phone) [facility] (no phone) 10-28-2019 Patient encounter no information PIERRE WALLACE MD ( no [facility] [address] procedure phone) [facility] (no phone) 09-04-2019 Patient encounter no information (no phone) [facility] procedure (no phone) 09-03-2019 Patient encounter no information (no phone) [facility] procedure (no phone) 07-02-2019 Patient encounter no information (no phone) [facility] procedure (no phone) 02-14-2019 Patient encounter no information no name no or ganization name procedure 11-12-2018 Patient encounter no information no name no or ganization name procedure 11-12-2018 Patient encounter no information NAYLA WYNNE APR N [facility] procedure (no phone) [facility] (no phone) 07-23-2018 Patient encounter no information no name no or ganization name - procedure 07-23-2018 07-23-2018 Patient encounter no information BENEDICTO HOLMAN ALID [facility] [address] - procedure (no phone) [facility] 07-23-2018 (no phone) 06-04-2018 Patient encounter no information no name no or ganization name procedure 06-04-2018 Patient encounter no information RYAN Fonseca [facility] [address] procedure (no phone) [facility] (no phone) 05-01-2018 Patient encounter no information BENEDICTO HOLMAN ALID [facility] [address] procedure (no phone) [facility] (no phone) 06-12-2017 Patient encounter no information DIANESAMUEL HOLMAN ALID [facility] [address] - procedure (no phone) [facility] 06-13-2017 (no phone) 05-11-2017 Patient encounter no information DIANESAMUEL HOLMAN ALID [facility] [address] procedure (no phone) [facility] (no phone) 03-09-2017 Patient encounter no information MICHAEL CULVER MA FSCA I [facility] procedure (no phone) [facility] (no phone) 02-28-2017 Patient encounter no information MICHAEL CULVER MA FSCA I [facility] procedure (no phone) [facility] (no phone) 07-18-2016 Patient encounter no information RYAN Fonseca [facility] [address] - procedure (no phone) 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 01-29-2016 (no phone) 01-27-2016 Patient encounter no information JEFF LOUIS MD (no [facility] [address] - procedure phone) [facility] 01-27-2016 (no phone) 11-17-2015 Patient encounter no information ANDREW HEWITT MD ( no [facility] [address] procedure phone) [facility] (no phone) 11-03-2015 Patient encounter no information ANDREW HEWITT MD ( no [facility] [address] - procedure phone) [facility] 11-03-2015 (no phone) 10-30-2015 Patient encounter no information ANDREW HEWITT MD ( no [facility] [address] - procedure phone) [facility] 10-30-2015 (no phone) 04-01-2015 Patient encounter no information PERNELL BASILIO MD ( no [facility] [address] - procedure phone) [facility] 06-29-2015 (no phone) 03-18-2015 Patient encounter no information TIN SOTO DO (no [facility] [address] - procedure phone) [facility] 03-19-2015 (no phone) 01-28-2015 Patient encounter no information TIN SOTO DO (no [facility] [address] procedure phone) [facility] (no phone) 10-29-2014 Patient encounter no information PERNELL BASILIO MD ( no [facility] [address] - procedure phone) [facility] 12-03-2014 (no phone) 09-24-2014 Patient encounter no information ANDREW HEWITT MD ( no [facility] [address] procedure phone) [facility] (no phone) 08-22-2014 Patient encounter no information ANDREW HEWITT MD ( no [facility] [address] procedure phone) [facility] (no phone) 11-21-2013 Patient encounter no information no name no or ganization name procedure 10-08-2013 Patient encounter no information no name no or ganization name - procedure 10-08-2013 06-22-2011 Patient encounter no information no name no or ganization name procedure 06-08-2011 Patient encounter no information no name no or ganization name - procedure 06-08-2011 06-06-2011 Patient encounter no information no name no or ganization name procedure 05-31-2011 Patient encounter no information no name no or ganization name procedure 05-23-2011 Patient encounter no information no name no or ganization name procedure 03-27-2018 PPPS, subseq visit no information no name no o rganization name - 03-27-2018 10-23-2019 no information Encounter for other no name no organization name preprocedural examination 10-23-2019 no information Pre-operative no name no organi zation name cardiovascular examination 03-27-2018 Encounter for general Routine general no name no organization name adult medical medical examination at examination with a health care facility abnormal findings no information Pre-operative no name no organization name cardiovascular examination no information Encounter for other no name no organiz ation name preprocedural examination no information Pre-operative no name no organization name examination, unspecified Medical Equipment No Information Payers The data below is from unstructured sources Payer Name Policy Number Subscriber Name Relationship Pedro [facility] [id number] Violetta López Self / Same As Patient [employer] [id number] Jesus Alberto López Self / Same As Patient Advance Directives No Advance Directive data Directive Response Recor ded Date Advance Directives N 1:22pm Health Care Power of Fur Comber N 11/23/12 1:22pm Organ Donor N 11/23/12 1 :22pm Directive Response Recor ded Date Advance Directives N 1:00am Health Care Power of Fur Comber N 11/15/12 9:36pm Organ Donor N 11/15/12 9 :36pm Directive Response Recor ded Date Advance Directives N 8:30pm Health Care Power of Fur Comber N 01/06/13 8:30pm Organ Donor N 01/06/13 8 :30pm Directive Response Recor ded Date Advance Directives N 10/06 8:21pm Health Care Power of Fur Comber N 10/27/12 8:21pm Organ Donor N 10/27/12 8 :21pm Summary Purpose Interface ExchangeInterface ExchangeInterface ExchangeInterface ExchangeInterface ExchangeInterface ExchangeInterface ExchangeInterface ExchangeInterface ExchangeInterface ExchangeInterface ExchangeInterface ExchangeInterface ExchangeInterface ExchangeInterface Exchange Family History Diagnosis Age At Onset No Family Disease Entered N/A Assessments Condition Codes Effectiv e Dates Type 2 diabetes mellitus without complications ICD-10: E11.9 ICD-9: 250.00 05/31/2017 Essential (primary) hypertension ICD -10: I10 ICD-9: 401.9 05/31/2017 Essential (primary) hypertension ICD -10: I10 ICD-9: 401.1 05/04/2017 Encounter for immunization ICD-10: Z 23 ICD-9: V04.81 03/30/2017 Other specified cardiac arrhythmias ICD-10: I49.8 ICD-9: 427.89 03/30/2017 Paroxysmal atrial fibrillation ICD-1 0: I48.0 ICD-9: 427.31 01/31/2017 Other arthropod infestations ICD-10: B88.2 ICD-9: 088.89 01/31/2017 Mixed hyperlipidemia ICD-10: E78.2 ICD-9: 272.2 10/25/2016 Localized edema ICD-10: R60.0 ICD-9: 782.3 10/25/2016 Muscle weakness (generalized) ICD-10 : M62.81 ICD-9: 780.79 05/12/2016 Low back pain ICD-10: M54.5 ICD-9: 724.2 05/12/2016 Radiculopathy, lumbosacral region IC D-10: M54.17 ICD-9: 724.4 02/23/2016 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 ICD-9: 280.0 01/15/2016 Encounter for screening for malignant neoplasm of colo n ICD- 10: Z12.11 ICD-9: V76.51 01/15/2016 Anemia, unspecified ICD-10: D64.9 ICD-9: 285.9 11/10/2015 Urge incontinence ICD-10: N39.41 ICD-9: 788.31 11/10/2015 Dorsalgia, unspecified ICD-10: M54.9 ICD-9: 724.5 08/07/2015 Ingrowing nail ICD-10: L60.0 ICD-9: 703.0 04/02/2015 Gastro-esophageal reflux disease without esophagitis ICD-10: K21.9 ICD-9: 530.81 04/02/2015 HYPERLIPIDEMIA ICD-9: 272.4 12/23/2014 ESSENTIAL HYPERTENSION ICD-9: 401.9 12/23/2014 DIABETES TYPE II ICD-9: 250.00 10/22/2014 Abdominal pain ICD-9: 789.00 10/22/2014 COUGH ICD-9: 786.2 09/26 ACUTE URI ICD-9: 465.9 0 09/26/2014 Fatigue ICD-9: 780.79 Chest wall pain ICD-9: 786.52 07/01/2014 Sleep apnea ICD-9: 780.57 06/09/2014 Excessive daytime sleepiness ICD-9: 780.54 06/09/2014 Dizziness ICD-9: 780.4 1 FEVER NOS ICD-9: 780.60 04/21/2014 EDEMA ICD-9: 782.3 04/21 Dysuria ICD-9: 788.1 Urinary tract infection ICD-9: 599.0 04/21/2014 Tick bite ICD-9: 919.4 0 02/14/2014 Vitamin D deficiency disease ICD-9: 268.9 01/16/2014 Biceps tendonitis ICD-9: 726.12 01/16/2014 Abnormal alkaline phosphatase test I CD-9: 790.5 10/28/2013 ENCNTR LONG-RX USE NEC ICD-9: V58.69 10/28/2013 ESOPHAGEAL REFLUX ICD-9: 530.81 06/24/2013 VACCIN FOR INFLUENZA ICD-9: V04.81 03/28/2013 DEPRESSIVE DISORDER NEC ICD-9: 311 03/28/2013 Myalgia and myositis ICD-9: 729.1 01/29/2013 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 01/29/2013 ACUTE BRONCHITIS ICD-9: 466.0 06/29/2012 VAC STREP PNEUMONIAE-FLU ICD-9: V06.6 04/02/2012 ALLERGIC RHINITIS ICD-9: 477.9 01/24/2012 OBESITY ICD-9: 278.00 Kidney stone ICD-9: 592.0 05/30/2011 Condition Codes Effectiv e Dates Urinary tract infection, site not specified ICD-10: N39.0 ICD-9: 599.0 07/21/2017 Proteus (mirabilis) (morganii) as the ca use of diseases classified elsewhere ICD-10: B96.4 ICD-9: 041.6 07/21/2017 Other Escherichia coli [E. coli] as the cause of diseases classified elsewhere ICD-10: B96.29 ICD-9: 041.49 07/21/2017 Essential (primary) hypertension ICD -10: I10 ICD-9: 401.9 05/31/2017 Type 2 diabetes mellitus without complications ICD-10: E11.9 ICD-9: 250.00 05/31/2017 Essential (primary) hypertension ICD -10: I10 ICD-9: 401.1 05/04/2017 Encounter for immunization ICD-10: Z 23 ICD-9: V04.81 03/30/2017 Other specified cardiac arrhythmias ICD-10: I49.8 ICD-9: 427.89 03/30/2017 Paroxysmal atrial fibrillation ICD-1 0: I48.0 ICD-9: 427.31 01/31/2017 Other arthropod infestations ICD-10: B88.2 ICD-9: 088.89 01/31/2017 Localized edema ICD-10: R60.0 ICD-9: 782.3 10/25/2016 Mixed hyperlipidemia ICD-10: E78.2 ICD-9: 272.2 10/25/2016 Muscle weakness (generalized) ICD-10 : M62.81 ICD-9: 780.79 05/12/2016 Low back pain ICD-10: M54.5 ICD-9: 724.2 05/12/2016 Radiculopathy, lumbosacral region IC D-10: M54.17 ICD-9: 724.4 02/23/2016 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 ICD-9: 280.0 01/15/2016 Encounter for screening for malignant neoplasm of colo n ICD- 10: Z12.11 ICD-9: V76.51 01/15/2016 Anemia, unspecified ICD-10: D64.9 ICD-9: 285.9 11/10/2015 Urge incontinence ICD-10: N39.41 ICD-9: 788.31 11/10/2015 Dorsalgia, unspecified ICD-10: M54.9 ICD-9: 724.5 08/07/2015 Ingrowing nail ICD-10: L60.0 ICD-9: 703.0 04/02/2015 Gastro-esophageal reflux disease without esophagitis ICD-10: K21.9 ICD-9: 530.81 04/02/2015 ESSENTIAL HYPERTENSION ICD-9: 401.9 12/23/2014 HYPERLIPIDEMIA ICD-9: 272.4 12/23/2014 Abdominal pain ICD-9: 789.00 10/22/2014 DIABETES TYPE II ICD-9: 250.00 10/22/2014 COUGH ICD-9: 786.2 09/26 ACUTE URI ICD-9: 465.9 0 09/26/2014 Fatigue ICD-9: 780.79 Chest wall pain ICD-9: 786.52 07/01/2014 Excessive daytime sleepiness ICD-9: 780.54 06/09/2014 Sleep apnea ICD-9: 780.57 06/09/2014 Urinary tract infection ICD-9: 599.0 04/21/2014 Dysuria ICD-9: 788.1 EDEMA ICD-9: 782.3 04/21 Dizziness ICD-9: 780.4 1 FEVER NOS ICD-9: 780.60 04/21/2014 Tick bite ICD-9: 919.4 0 02/14/2014 Vitamin D deficiency disease ICD-9: 268.9 01/16/2014 Biceps tendonitis ICD-9: 726.12 01/16/2014 Abnormal alkaline phosphatase test I CD-9: 790.5 10/28/2013 ENCNTR LONG-RX USE NEC ICD-9: V58.69 10/28/2013 ESOPHAGEAL REFLUX ICD-9: 530.81 06/24/2013 DEPRESSIVE DISORDER NEC ICD-9: 311 03/28/2013 VACCIN FOR INFLUENZA ICD-9: V04.81 03/28/2013 Myalgia and myositis ICD-9: 729.1 01/29/2013 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 01/29/2013 ACUTE BRONCHITIS ICD-9: 466.0 06/29/2012 VAC STREP PNEUMONIAE-FLU ICD-9: V06.6 04/02/2012 ALLERGIC RHINITIS ICD-9: 477.9 01/24/2012 OBESITY ICD-9: 278.00 Kidney stone ICD-9: 592.0 05/30/2011 Condition Codes Effectiv e Dates Localized edema ICD-10: R60.0 ICD-9: 782.3 09/11/2018 Mixed hyperlipidemia ICD-10: E78.2 ICD-9: 272.2 09/11/2018 Type 2 diabetes mellitus without complications ICD-10: E11.9 ICD-9: 250.00 09/11/2018 Pain in right hip ICD-10: M25.551 ICD-9: 719.45 09/11/2018 Pain in right knee ICD-10: M25.561 ICD-9: 719.46 09/11/2018 Essential (primary) hypertension ICD -10: I10 ICD-9: 401.1 09/11/2018 Cough ICD-10: R05 ICD-9: 786.2 06/04/2018 Encounter for general adult medical exam ination with abnormal findings ICD-10: Z00.01 ICD-9: V70.0 03/27/2018 Vitamin D deficiency, unspecified IC D-10: E55.9 ICD-9: 268.9 03/19/2018 Encounter for immunization ICD-10: Z 23 ICD-9: V04.81 03/19/2018 Acute pharyngitis due to other specified organisms ICD-10: J02.8 ICD-9: 462 03/19/2018 Candidal esophagitis ICD-10: B37.81 ICD-9: 112.84 03/19/2018 Myalgia ICD-10: M79.1 ICD-9: 729.1 01/30/2018 Frequency of micturition ICD-10: R35 .0 ICD-9: 788.41 12/26/2017 Encounter for follow-up examination afte r completed treatment for conditions other than malignant neoplasm ICD-10: Z09 ICD-9: V67.59 11/21/2017 Gastro-esophageal reflux disease without esophagitis ICD-10: K21.9 ICD-9: 530.81 10/19/2017 Urinary tract infection, site not specified ICD-10: N39.0 ICD-9: 599.0 07/21/2017 Proteus (mirabilis) (morganii) as the ca use of diseases classified elsewhere ICD-10: B96.4 ICD-9: 041.6 07/21/2017 Other Escherichia coli [E. 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 ICD-9: 280.0 01/15/2016 Encounter for screening for malignant neoplasm of colo n ICD- 10: Z12.11 ICD-9: V76.51 01/15/2016 Anemia, unspecified ICD-10: D64.9 ICD-9: 285.9 11/10/2015 Urge incontinence ICD-10: N39.41 ICD-9: 788.31 11/10/2015 Dorsalgia, unspecified ICD-10: M54.9 ICD-9: 724.5 08/07/2015 Ingrowing nail ICD-10: L60.0 ICD-9: 703.0 04/02/2015 HYPERLIPIDEMIA ICD-9: 272.4 12/23/2014 ESSENTIAL HYPERTENSION ICD-9: 401.9 12/23/2014 DIABETES TYPE II ICD-9: 250.00 10/22/2014 Abdominal pain ICD-9: 789.00 10/22/2014 COUGH ICD-9: 786.2 09/26 ACUTE URI ICD-9: 465.9 0 09/26/2014 Fatigue ICD-9: 780.79 Chest wall pain ICD-9: 786.52 07/01/2014 Excessive daytime sleepiness ICD-9: 780.54 06/09/2014 Sleep apnea ICD-9: 780.57 06/09/2014 Urinary tract infection ICD-9: 599.0 04/21/2014 Dysuria ICD-9: 788.1 EDEMA ICD-9: 782.3 04/21 Dizziness ICD-9: 780.4 1 FEVER NOS ICD-9: 780.60 04/21/2014 Tick bite ICD-9: 919.4 0 02/14/2014 Vitamin D deficiency disease ICD-9: 268.9 01/16/2014 Biceps tendonitis ICD-9: 726.12 01/16/2014 Abnormal alkaline phosphatase test I CD-9: 790.5 10/28/2013 ENCNTR LONG-RX USE NEC ICD-9: V58.69 10/28/2013 ESOPHAGEAL REFLUX ICD-9: 530.81 06/24/2013 DEPRESSIVE DISORDER NEC ICD-9: 311 03/28/2013 VACCIN FOR INFLUENZA ICD-9: V04.81 03/28/2013 Myalgia and myositis ICD-9: 729.1 01/29/2013 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 01/29/2013 ACUTE BRONCHITIS ICD-9: 466.0 06/29/2012 VAC STREP PNEUMONIAE-FLU ICD-9: V06.6 04/02/2012 ALLERGIC RHINITIS ICD-9: 477.9 01/24/2012 OBESITY ICD-9: 278.00 Kidney stone ICD-9: 592.0 05/30/2011 Condition Codes Effectiv e Dates Pain in right hip ICD-10: M25.551 ICD-9: 719.45 09/27/2018 Localized edema ICD-10: R60.0 ICD-9: 782.3 09/11/2018 Mixed hyperlipidemia ICD-10: E78.2 ICD-9: 272.2 09/11/2018 Type 2 diabetes mellitus without complications ICD-10: E11.9 ICD-9: 250.00 09/11/2018 Pain in right knee ICD-10: M25.561 ICD-9: 719.46 09/11/2018 Essential (primary) hypertension ICD -10: I10 ICD-9: 401.1 09/11/2018 Cough ICD-10: R05 ICD-9: 786.2 06/04/2018 Encounter for general adult medical exam ination with abnormal findings ICD-10: Z00.01 ICD-9: V70.0 03/27/2018 Vitamin D deficiency, unspecified IC D-10: E55.9 ICD-9: 268.9 03/19/2018 Encounter for immunization ICD-10: Z 23 ICD-9: V04.81 03/19/2018 Acute pharyngitis due to other specified organisms ICD-10: J02.8 ICD-9: 462 03/19/2018 Candidal esophagitis ICD-10: B37.81 ICD-9: 112.84 03/19/2018 Myalgia ICD-10: M79.1 ICD-9: 729.1 01/30/2018 Frequency of micturition ICD-10: R35 .0 ICD-9: 788.41 12/26/2017 Encounter for follow-up examination afte r completed treatment for conditions other than malignant neoplasm ICD-10: Z09 ICD-9: V67.59 11/21/2017 Gastro-esophageal reflux disease without esophagitis ICD-10: K21.9 ICD-9: 530.81 10/19/2017 Urinary tract infection, site not specified ICD-10: N39.0 ICD-9: 599.0 07/21/2017 Proteus (mirabilis) (morganii) as the ca use of diseases classified elsewhere ICD-10: B96.4 ICD-9: 041.6 07/21/2017 Other Escherichia coli [E. 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 ICD-9: 280.0 01/15/2016 Encounter for screening for malignant neoplasm of colo n ICD- 10: Z12.11 ICD-9: V76.51 01/15/2016 Anemia, unspecified ICD-10: D64.9 ICD-9: 285.9 11/10/2015 Urge incontinence ICD-10: N39.41 ICD-9: 788.31 11/10/2015 Dorsalgia, unspecified ICD-10: M54.9 ICD-9: 724.5 08/07/2015 Ingrowing nail ICD-10: L60.0 ICD-9: 703.0 04/02/2015 HYPERLIPIDEMIA ICD-9: 272.4 12/23/2014 ESSENTIAL HYPERTENSION ICD-9: 401.9 12/23/2014 DIABETES TYPE II ICD-9: 250.00 10/22/2014 Abdominal pain ICD-9: 789.00 10/22/2014 COUGH ICD-9: 786.2 09/26 ACUTE URI ICD-9: 465.9 0 09/26/2014 Fatigue ICD-9: 780.79 Chest wall pain ICD-9: 786.52 07/01/2014 Excessive daytime sleepiness ICD-9: 780.54 06/09/2014 Sleep apnea ICD-9: 780.57 06/09/2014 Urinary tract infection ICD-9: 599.0 04/21/2014 Dysuria ICD-9: 788.1 EDEMA ICD-9: 782.3 04/21 Dizziness ICD-9: 780.4 1 FEVER NOS ICD-9: 780.60 04/21/2014 Tick bite ICD-9: 919.4 0 02/14/2014 Vitamin D deficiency disease ICD-9: 268.9 01/16/2014 Biceps tendonitis ICD-9: 726.12 01/16/2014 Abnormal alkaline phosphatase test I CD-9: 790.5 10/28/2013 ENCNTR LONG-RX USE NEC ICD-9: V58.69 10/28/2013 ESOPHAGEAL REFLUX ICD-9: 530.81 06/24/2013 DEPRESSIVE DISORDER NEC ICD-9: 311 03/28/2013 VACCIN FOR INFLUENZA ICD-9: V04.81 03/28/2013 Myalgia and myositis ICD-9: 729.1 01/29/2013 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 01/29/2013 ACUTE BRONCHITIS ICD-9: 466.0 06/29/2012 VAC STREP PNEUMONIAE-FLU ICD-9: V06.6 04/02/2012 ALLERGIC RHINITIS ICD-9: 477.9 01/24/2012 OBESITY ICD-9: 278.00 Kidney stone ICD-9: 592.0 05/30/2011 Condition Codes Effectiv e Dates Sciatica, left side ICD-10: M54.32 ICD-9: 724.3 10/08/2018 Type 2 diabetes mellitus without complications ICD-10: E11.9 ICD-9: 250.00 10/08/2018 Essential (primary) hypertension ICD -10: I10 ICD-9: 401.1 10/08/2018 Pain in right hip ICD-10: M25.551 ICD-9: 719.45 09/27/2018 Localized edema ICD-10: R60.0 ICD-9: 782.3 09/11/2018 Mixed hyperlipidemia ICD-10: E78.2 ICD-9: 272.2 09/11/2018 Pain in right knee ICD-10: M25.561 ICD-9: 719.46 09/11/2018 Cough ICD-10: R05 ICD-9: 786.2 06/04/2018 Encounter for general adult medical exam ination with abnormal findings ICD-10: Z00.01 ICD-9: V70.0 03/27/2018 Vitamin D deficiency, unspecified IC D-10: E55.9 ICD-9: 268.9 03/19/2018 Encounter for immunization ICD-10: Z 23 ICD-9: V04.81 03/19/2018 Acute pharyngitis due to other specified organisms ICD-10: J02.8 ICD-9: 462 03/19/2018 Candidal esophagitis ICD-10: B37.81 ICD-9: 112.84 03/19/2018 Myalgia ICD-10: M79.1 ICD-9: 729.1 01/30/2018 Frequency of micturition ICD-10: R35 .0 ICD-9: 788.41 12/26/2017 Encounter for follow-up examination afte r completed treatment for conditions other than malignant neoplasm ICD-10: Z09 ICD-9: V67.59 11/21/2017 Gastro-esophageal reflux disease without esophagitis ICD-10: K21.9 ICD-9: 530.81 10/19/2017 Urinary tract infection, site not specified ICD-10: N39.0 ICD-9: 599.0 07/21/2017 Proteus (mirabilis) (morganii) as the ca use of diseases classified elsewhere ICD-10: B96.4 ICD-9: 041.6 07/21/2017 Other Escherichia coli [E. 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 ICD-9: 280.0 01/15/2016 Encounter for screening for malignant neoplasm of colo n ICD- 10: Z12.11 ICD-9: V76.51 01/15/2016 Anemia, unspecified ICD-10: D64.9 ICD-9: 285.9 11/10/2015 Urge incontinence ICD-10: N39.41 ICD-9: 788.31 11/10/2015 Dorsalgia, unspecified ICD-10: M54.9 ICD-9: 724.5 08/07/2015 Ingrowing nail ICD-10: L60.0 ICD-9: 703.0 04/02/2015 HYPERLIPIDEMIA ICD-9: 272.4 12/23/2014 ESSENTIAL HYPERTENSION ICD-9: 401.9 12/23/2014 DIABETES TYPE II ICD-9: 250.00 10/22/2014 Abdominal pain ICD-9: 789.00 10/22/2014 COUGH ICD-9: 786.2 09/26 ACUTE URI ICD-9: 465.9 0 09/26/2014 Fatigue ICD-9: 780.79 Chest wall pain ICD-9: 786.52 07/01/2014 Excessive daytime sleepiness ICD-9: 780.54 06/09/2014 Sleep apnea ICD-9: 780.57 06/09/2014 Urinary tract infection ICD-9: 599.0 04/21/2014 Dysuria ICD-9: 788.1 EDEMA ICD-9: 782.3 04/21 Dizziness ICD-9: 780.4 1 FEVER NOS ICD-9: 780.60 04/21/2014 Tick bite ICD-9: 919.4 0 02/14/2014 Vitamin D deficiency disease ICD-9: 268.9 01/16/2014 Biceps tendonitis ICD-9: 726.12 01/16/2014 Abnormal alkaline phosphatase test I CD-9: 790.5 10/28/2013 ENCNTR LONG-RX USE NEC ICD-9: V58.69 10/28/2013 ESOPHAGEAL REFLUX ICD-9: 530.81 06/24/2013 DEPRESSIVE DISORDER NEC ICD-9: 311 03/28/2013 VACCIN FOR INFLUENZA ICD-9: V04.81 03/28/2013 Myalgia and myositis ICD-9: 729.1 01/29/2013 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 01/29/2013 ACUTE BRONCHITIS ICD-9: 466.0 06/29/2012 VAC STREP PNEUMONIAE-FLU ICD-9: V06.6 04/02/2012 ALLERGIC RHINITIS ICD-9: 477.9 01/24/2012 OBESITY ICD-9: 278.00 Kidney stone ICD-9: 592.0 05/30/2011 Condition Codes Effectiv e Dates Mixed hyperlipidemia ICD-10: E78.2 ICD-9: 272.2 10/25/2016 Localized edema ICD-10: R60.0 ICD-9: 782.3 10/25/2016 Essential (primary) hypertension ICD -10: I10 ICD-9: 401.1 10/25/2016 Type 2 diabetes mellitus without complications ICD-10: E11.9 ICD-9: 250.00 10/25/2016 Paroxysmal atrial fibrillation ICD-1 0: I48.0 ICD-9: 427.31 07/27/2016 Essential (primary) hypertension ICD -10: I10 ICD-9: 401.9 07/27/2016 Muscle weakness (generalized) ICD-10 : M62.81 ICD-9: 780.79 05/12/2016 Low back pain ICD-10: M54.5 ICD-9: 724.2 05/12/2016 Radiculopathy, lumbosacral region IC D-10: M54.17 ICD-9: 724.4 02/23/2016 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 ICD-9: 280.0 01/15/2016 Encounter for screening for malignant neoplasm of colo n ICD- 10: Z12.11 ICD-9: V76.51 01/15/2016 Anemia, unspecified ICD-10: D64.9 ICD-9: 285.9 11/10/2015 Urge incontinence ICD-10: N39.41 ICD-9: 788.31 11/10/2015 Dorsalgia, unspecified ICD-10: M54.9 ICD-9: 724.5 08/07/2015 Ingrowing nail ICD-10: L60.0 ICD-9: 703.0 04/02/2015 Gastro-esophageal reflux disease without esophagitis ICD-10: K21.9 ICD-9: 530.81 04/02/2015 HYPERLIPIDEMIA ICD-9: 272.4 12/23/2014 ESSENTIAL HYPERTENSION ICD-9: 401.9 12/23/2014 DIABETES TYPE II ICD-9: 250.00 10/22/2014 Abdominal pain ICD-9: 789.00 10/22/2014 COUGH ICD-9: 786.2 09/26 ACUTE URI ICD-9: 465.9 0 09/26/2014 Fatigue ICD-9: 780.79 Chest wall pain ICD-9: 786.52 07/01/2014 Excessive daytime sleepiness ICD-9: 780.54 06/09/2014 Sleep apnea ICD-9: 780.57 06/09/2014 Urinary tract infection ICD-9: 599.0 04/21/2014 Dysuria ICD-9: 788.1 EDEMA ICD-9: 782.3 04/21 Dizziness ICD-9: 780.4 1 FEVER NOS ICD-9: 780.60 04/21/2014 Tick bite ICD-9: 919.4 0 02/14/2014 Vitamin D deficiency disease ICD-9: 268.9 01/16/2014 Biceps tendonitis ICD-9: 726.12 01/16/2014 Abnormal alkaline phosphatase test I CD-9: 790.5 10/28/2013 ENCNTR LONG-RX USE NEC ICD-9: V58.69 10/28/2013 ESOPHAGEAL REFLUX ICD-9: 530.81 06/24/2013 DEPRESSIVE DISORDER NEC ICD-9: 311 03/28/2013 VACCIN FOR INFLUENZA ICD-9: V04.81 03/28/2013 Myalgia and myositis ICD-9: 729.1 01/29/2013 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 01/29/2013 ACUTE BRONCHITIS ICD-9: 466.0 06/29/2012 VAC STREP PNEUMONIAE-FLU ICD-9: V06.6 04/02/2012 ALLERGIC RHINITIS ICD-9: 477.9 01/24/2012 OBESITY ICD-9: 278.00 Kidney stone ICD-9: 592.0 05/30/2011 Condition Codes Effectiv e Dates Sciatica, right side ICD-10: M54.31 ICD-9: 724.3 11/01/2018 Low back pain ICD-10: M54.5 ICD-9: 724.2 11/01/2018 Essential (primary) hypertension ICD -10: I10 ICD-9: 401.1 11/01/2018 Sciatica, left side ICD-10: M54.32 ICD-9: 724.3 10/08/2018 Type 2 diabetes mellitus without complications ICD-10: E11.9 ICD-9: 250.00 10/08/2018 Pain in right hip ICD-10: M25.551 ICD-9: 719.45 09/27/2018 Localized edema ICD-10: R60.0 ICD-9: 782.3 09/11/2018 Mixed hyperlipidemia ICD-10: E78.2 ICD-9: 272.2 09/11/2018 Pain in right knee ICD-10: M25.561 ICD-9: 719.46 09/11/2018 Cough ICD-10: R05 ICD-9: 786.2 06/04/2018 Encounter for general adult medical exam ination with abnormal findings ICD-10: Z00.01 ICD-9: V70.0 03/27/2018 Vitamin D deficiency, unspecified IC D-10: E55.9 ICD-9: 268.9 03/19/2018 Encounter for immunization ICD-10: Z 23 ICD-9: V04.81 03/19/2018 Acute pharyngitis due to other specified organisms ICD-10: J02.8 ICD-9: 462 03/19/2018 Candidal esophagitis ICD-10: B37.81 ICD-9: 112.84 03/19/2018 Myalgia ICD-10: M79.1 ICD-9: 729.1 01/30/2018 Frequency of micturition ICD-10: R35 .0 ICD-9: 788.41 12/26/2017 Encounter for follow-up examination afte r completed treatment for conditions other than malignant neoplasm ICD-10: Z09 ICD-9: V67.59 11/21/2017 Gastro-esophageal reflux disease without esophagitis ICD-10: K21.9 ICD-9: 530.81 10/19/2017 Urinary tract infection, site not specified ICD-10: N39.0 ICD-9: 599.0 07/21/2017 Proteus (mirabilis) (morganii) as the ca use of diseases classified elsewhere ICD-10: B96.4 ICD-9: 041.6 07/21/2017 Other Escherichia coli [E. 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 ICD-9: 280.0 01/15/2016 Encounter for screening for malignant neoplasm of colo n ICD- 10: Z12.11 ICD-9: V76.51 01/15/2016 Anemia, unspecified ICD-10: D64.9 ICD-9: 285.9 11/10/2015 Urge incontinence ICD-10: N39.41 ICD-9: 788.31 11/10/2015 Dorsalgia, unspecified ICD-10: M54.9 ICD-9: 724.5 08/07/2015 Ingrowing nail ICD-10: L60.0 ICD-9: 703.0 04/02/2015 HYPERLIPIDEMIA ICD-9: 272.4 12/23/2014 ESSENTIAL HYPERTENSION ICD-9: 401.9 12/23/2014 DIABETES TYPE II ICD-9: 250.00 10/22/2014 Abdominal pain ICD-9: 789.00 10/22/2014 COUGH ICD-9: 786.2 09/26 ACUTE URI ICD-9: 465.9 0 09/26/2014 Fatigue ICD-9: 780.79 Chest wall pain ICD-9: 786.52 07/01/2014 Excessive daytime sleepiness ICD-9: 780.54 06/09/2014 Sleep apnea ICD-9: 780.57 06/09/2014 Urinary tract infection ICD-9: 599.0 04/21/2014 Dysuria ICD-9: 788.1 EDEMA ICD-9: 782.3 04/21 Dizziness ICD-9: 780.4 1 FEVER NOS ICD-9: 780.60 04/21/2014 Tick bite ICD-9: 919.4 0 02/14/2014 Vitamin D deficiency disease ICD-9: 268.9 01/16/2014 Biceps tendonitis ICD-9: 726.12 01/16/2014 Abnormal alkaline phosphatase test I CD-9: 790.5 10/28/2013 ENCNTR LONG-RX USE NEC ICD-9: V58.69 10/28/2013 ESOPHAGEAL REFLUX ICD-9: 530.81 06/24/2013 DEPRESSIVE DISORDER NEC ICD-9: 311 03/28/2013 VACCIN FOR INFLUENZA ICD-9: V04.81 03/28/2013 Myalgia and myositis ICD-9: 729.1 01/29/2013 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 01/29/2013 ACUTE BRONCHITIS ICD-9: 466.0 06/29/2012 VAC STREP PNEUMONIAE-FLU ICD-9: V06.6 04/02/2012 ALLERGIC RHINITIS ICD-9: 477.9 01/24/2012 OBESITY ICD-9: 278.00 Kidney stone ICD-9: 592.0 05/30/2011 Condition Codes Effectiv e Dates Type 2 diabetes mellitus without complications ICD-10: E11.9 ICD-9: 250.00 02/27/2019 Essential (primary) hypertension ICD -10: I10 ICD-9: 401.1 02/27/2019 Low back pain ICD-10: M54.5 ICD-9: 724.2 02/27/2019 Mixed hyperlipidemia ICD-10: E78.2 ICD-9: 272.2 02/27/2019 Sciatica, right side ICD-10: M54.31 ICD-9: 724.3 11/01/2018 Sciatica, left side ICD-10: M54.32 ICD-9: 724.3 10/08/2018 Pain in right hip ICD-10: M25.551 ICD-9: 719.45 09/27/2018 Localized edema ICD-10: R60.0 ICD-9: 782.3 09/11/2018 Pain in right knee ICD-10: M25.561 ICD-9: 719.46 09/11/2018 Cough ICD-10: R05 ICD-9: 786.2 06/04/2018 Encounter for general adult medical exam ination with abnormal findings ICD-10: Z00.01 ICD-9: V70.0 03/27/2018 Vitamin D deficiency, unspecified IC D-10: E55.9 ICD-9: 268.9 03/19/2018 Encounter for immunization ICD-10: Z 23 ICD-9: V04.81 03/19/2018 Acute pharyngitis due to other specified organisms ICD-10: J02.8 ICD-9: 462 03/19/2018 Candidal esophagitis ICD-10: B37.81 ICD-9: 112.84 03/19/2018 Myalgia ICD-10: M79.1 ICD-9: 729.1 01/30/2018 Frequency of micturition ICD-10: R35 .0 ICD-9: 788.41 12/26/2017 Encounter for follow-up examination afte r completed treatment for conditions other than malignant neoplasm ICD-10: Z09 ICD-9: V67.59 11/21/2017 Gastro-esophageal reflux disease without esophagitis ICD-10: K21.9 ICD-9: 530.81 10/19/2017 Urinary tract infection, site not specified ICD-10: N39.0 ICD-9: 599.0 07/21/2017 Proteus (mirabilis) (morganii) as the ca use of diseases classified elsewhere ICD-10: B96.4 ICD-9: 041.6 07/21/2017 Other Escherichia coli [E. 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 ICD-9: 280.0 01/15/2016 Encounter for screening for malignant neoplasm of colo n ICD- 10: Z12.11 ICD-9: V76.51 01/15/2016 Anemia, unspecified ICD-10: D64.9 ICD-9: 285.9 11/10/2015 Urge incontinence ICD-10: N39.41 ICD-9: 788.31 11/10/2015 Dorsalgia, unspecified ICD-10: M54.9 ICD-9: 724.5 08/07/2015 Ingrowing nail ICD-10: L60.0 ICD-9: 703.0 04/02/2015 HYPERLIPIDEMIA ICD-9: 272.4 12/23/2014 ESSENTIAL HYPERTENSION ICD-9: 401.9 12/23/2014 DIABETES TYPE II ICD-9: 250.00 10/22/2014 Abdominal pain ICD-9: 789.00 10/22/2014 COUGH ICD-9: 786.2 09/26 ACUTE URI ICD-9: 465.9 0 09/26/2014 Fatigue ICD-9: 780.79 Chest wall pain ICD-9: 786.52 07/01/2014 Excessive daytime sleepiness ICD-9: 780.54 06/09/2014 Sleep apnea ICD-9: 780.57 06/09/2014 Urinary tract infection ICD-9: 599.0 04/21/2014 Dysuria ICD-9: 788.1 EDEMA ICD-9: 782.3 04/21 Dizziness ICD-9: 780.4 1 FEVER NOS ICD-9: 780.60 04/21/2014 Tick bite ICD-9: 919.4 0 02/14/2014 Vitamin D deficiency disease ICD-9: 268.9 01/16/2014 Biceps tendonitis ICD-9: 726.12 01/16/2014 Abnormal alkaline phosphatase test I CD-9: 790.5 10/28/2013 ENCNTR LONG-RX USE NEC ICD-9: V58.69 10/28/2013 ESOPHAGEAL REFLUX ICD-9: 530.81 06/24/2013 DEPRESSIVE DISORDER NEC ICD-9: 311 03/28/2013 VACCIN FOR INFLUENZA ICD-9: V04.81 03/28/2013 Myalgia and myositis ICD-9: 729.1 01/29/2013 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 01/29/2013 ACUTE BRONCHITIS ICD-9: 466.0 06/29/2012 VAC STREP PNEUMONIAE-FLU ICD-9: V06.6 04/02/2012 ALLERGIC RHINITIS ICD-9: 477.9 01/24/2012 OBESITY ICD-9: 278.00 Kidney stone ICD-9: 592.0 05/30/2011 Review of System System Result Effective Dates Constitutional No fever 05/04/2017 Eyes cataract 05/04/2017 Ears/Nose/Throat/Neck No dizziness 05/04/2017 Cardiovascular No chest pain/pressure 05/04/2017 Cardiovascular No syncope 05/04/2017 Respiratory No chest congestion 05/04/2017 Respiratory No cough 02/2017 Respiratory No dyspnea 1 07/04/2016 Gastrointestinal No abdominal pain 05/04/2017 Gastrointestinal No constipation 05/04/2017 Gastrointestinal No diarrhea 05/04/2017 Gastrointestinal No nausea 05/04/2017 Gastrointestinal No vomiting 05/04/2017 Dermatologic No rash 02/2017 Neurologic No alteration of consciousness 05/04/2017 Neurologic No mental status change 05/04/2017 Musculoskeletal No stiffness 05/04/2017 Musculoskeletal No swelling 05/04/2017 Musculoskeletal No muscle weakness 05/04/2017 Musculoskeletal No myalgias 05/04/2017 Psychiatric No anxiety 1 07/04/2016 Constitutional recent illness 03/30/2017 Constitutional fatigue 1 Constitutional malaise 1 Cardiovascular exercise intolerance 03/30/2017 Cardiovascular fatigue 1 Respiratory No chest congestion 03/30/2017 Respiratory No chest tightness 03/30/2017 Gastrointestinal No abdominal pain 03/30/2017 Psychiatric No anxiety 1 Psychiatric No depression 03/30/2017 Musculoskeletal stiffness 03/30/2017 Constitutional No fever 03/30/2017 Constitutional No insomnia 03/30/2017 Ears/Nose/Throat/Neck dizziness 03/30/2017 Cardiovascular No chest pain/pressure 03/30/2017 Cardiovascular hypertension 03/30/2017 Respiratory No cough 10/2016 Gastrointestinal No constipation 03/30/2017 Gastrointestinal No diarrhea 03/30/2017 Gastrointestinal No nausea 03/30/2017 Gastrointestinal No vomiting 03/30/2017 Genitourinary/Nephrology urinary frequency 03/30/2017 Musculoskeletal arthralgia(s) 03/30/2017 Musculoskeletal back pain 03/30/2017 Musculoskeletal muscle weakness 03/30/2017 Constitutional No fever 03/02/2017 Constitutional No insomnia 03/02/2017 Eyes No blindness 2016 Eyes No vision change Ears/Nose/Throat/Neck No dizziness 03/02/2017 Cardiovascular No chest pain/pressure 03/02/2017 Cardiovascular fatigue 0 03/02/2017 Cardiovascular hypertension 03/02/2017 Respiratory No chest congestion 03/02/2017 Respiratory No cough 12/2016 Gastrointestinal No abdominal pain 03/02/2017 Gastrointestinal No constipation 03/02/2017 Gastrointestinal No diarrhea 03/02/2017 Gastrointestinal No nausea 03/02/2017 Gastrointestinal No vomiting 03/02/2017 Genitourinary/Nephrology urinary frequency 03/02/2017 Musculoskeletal No stiffness 03/02/2017 Musculoskeletal No arthralgia(s) 03/02/2017 Musculoskeletal back pain 03/02/2017 Dermatologic No rash 12/2016 Neurologic No alteration of consciousness 03/02/2017 Neurologic No mental status change 03/02/2017 Psychiatric No anxiety 0 03/02/2017 Psychiatric No depression 03/02/2017 Constitutional No recent illness 03/02/2017 Constitutional fatigue 0 03/02/2017 Constitutional fatigue 0 01/31/2017 Constitutional No fever 01/31/2017 Constitutional No insomnia 01/31/2017 Eyes No blindness 2016 Eyes No vision change Ears/Nose/Throat/Neck dizziness 01/31/2017 Cardiovascular No chest pain/pressure 01/31/2017 Cardiovascular fatigue 0 01/31/2017 Cardiovascular hypertension 01/31/2017 Respiratory No chest congestion 01/31/2017 Respiratory No cough 01/2017 Gastrointestinal No abdominal pain 01/31/2017 Gastrointestinal No constipation 01/31/2017 Gastrointestinal No diarrhea 01/31/2017 Gastrointestinal No nausea 01/31/2017 Gastrointestinal No vomiting 01/31/2017 Genitourinary/Nephrology urinary frequency 01/31/2017 Musculoskeletal stiffness 01/31/2017 Musculoskeletal arthralgia(s) 01/31/2017 Musculoskeletal back pain 01/31/2017 Dermatologic No rash 01/2017 Neurologic No alteration of consciousness 01/31/2017 Neurologic No mental status change 01/31/2017 Psychiatric No anxiety 0 01/31/2017 Psychiatric No depression 01/31/2017 Musculoskeletal muscle weakness 01/31/2017 Constitutional fatigue 0 10/25/2016 Constitutional No fever 10/25/2016 Constitutional No insomnia 10/25/2016 Eyes No blindness 2016 Eyes No vision change Ears/Nose/Throat/Neck No dizziness 10/25/2016 Cardiovascular No chest pain/pressure 10/25/2016 Cardiovascular fatigue 0 10/25/2016 Cardiovascular hypertension 10/25/2016 Respiratory No chest congestion 10/25/2016 Respiratory No cough 07/2016 Gastrointestinal No abdominal pain 10/25/2016 Gastrointestinal No constipation 10/25/2016 Gastrointestinal No diarrhea 10/25/2016 Gastrointestinal No nausea 10/25/2016 Gastrointestinal No vomiting 10/25/2016 Genitourinary/Nephrology urinary frequency 10/25/2016 Musculoskeletal No stiffness 10/25/2016 Musculoskeletal No arthralgia(s) 10/25/2016 Musculoskeletal back pain 10/25/2016 Dermatologic No rash 07/2016 Neurologic No alteration of consciousness 10/25/2016 Neurologic No mental status change 10/25/2016 Psychiatric No anxiety 0 10/25/2016 Psychiatric No depression 10/25/2016 Constitutional fatigue 0 07/27/2016 Constitutional No fever 07/27/2016 Constitutional No insomnia 07/27/2016 Eyes No blindness 2016 Eyes No vision change Ears/Nose/Throat/Neck No dizziness 07/27/2016 Cardiovascular No chest pain/pressure 07/27/2016 Cardiovascular fatigue 0 07/27/2016 Cardiovascular hypertension 07/27/2016 Respiratory No chest congestion 07/27/2016 Respiratory No cough 06/2016 Gastrointestinal No abdominal pain 07/27/2016 Gastrointestinal No constipation 07/27/2016 Gastrointestinal No diarrhea 07/27/2016 Gastrointestinal No nausea 07/27/2016 Gastrointestinal No vomiting 07/27/2016 Genitourinary/Nephrology urinary frequency 07/27/2016 Musculoskeletal No stiffness 07/27/2016 Musculoskeletal No arthralgia(s) 07/27/2016 Musculoskeletal back pain 07/27/2016 Dermatologic No rash 06/2016 Neurologic No alteration of consciousness 07/27/2016 Neurologic No mental status change 07/27/2016 Psychiatric No anxiety 0 07/27/2016 Psychiatric No depression 07/27/2016 Constitutional fatigue 1 07/27/2015 Constitutional No fever 05/26/2016 Constitutional No insomnia 05/26/2016 Eyes No blindness 2015 Eyes No vision change Ears/Nose/Throat/Neck No dizziness 05/26/2016 Cardiovascular No chest pain/pressure 05/26/2016 Cardiovascular fatigue 1 07/27/2015 Cardiovascular hypertension 05/26/2016 Respiratory No chest congestion 05/26/2016 Respiratory No cough 06/2015 Gastrointestinal No abdominal pain 05/26/2016 Gastrointestinal No constipation 05/26/2016 Gastrointestinal No diarrhea 05/26/2016 Gastrointestinal No nausea 05/26/2016 Gastrointestinal No vomiting 05/26/2016 Genitourinary/Nephrology urinary frequency 05/26/2016 Musculoskeletal No stiffness 05/26/2016 Musculoskeletal No arthralgia(s) 05/26/2016 Musculoskeletal back pain 05/26/2016 Dermatologic No rash 06/2015 Neurologic No alteration of consciousness 05/26/2016 Neurologic No mental status change 05/26/2016 Psychiatric No anxiety 1 07/27/2015 Psychiatric No depression 05/26/2016 Constitutional fatigue 1 07/12/2015 Constitutional No fever 05/12/2016 Constitutional No insomnia 05/12/2016 Eyes No blindness 2015 Eyes No vision change Ears/Nose/Throat/Neck No dizziness 05/12/2016 Cardiovascular No chest pain/pressure 05/12/2016 Cardiovascular fatigue 1 07/12/2015 Cardiovascular hypertension 05/12/2016 Respiratory No chest congestion 05/12/2016 Respiratory No cough Gastrointestinal No abdominal pain 05/12/2016 Gastrointestinal No constipation 05/12/2016 Gastrointestinal No diarrhea 05/12/2016 Gastrointestinal No nausea 05/12/2016 Gastrointestinal No vomiting 05/12/2016 Genitourinary/Nephrology urinary frequency 05/12/2016 Musculoskeletal No stiffness 05/12/2016 Musculoskeletal No arthralgia(s) 05/12/2016 Musculoskeletal back pain 05/12/2016 Dermatologic No rash Neurologic No alteration of consciousness 05/12/2016 Neurologic No mental status change 05/12/2016 Psychiatric No anxiety 1 07/12/2015 Psychiatric No depression 05/12/2016 Constitutional fatigue 0 02/23/2016 Constitutional No fever 02/23/2016 Constitutional No insomnia 02/23/2016 Eyes No blindness 2015 Eyes No vision change Ears/Nose/Throat/Neck No dizziness 02/23/2016 Cardiovascular No chest pain/pressure 02/23/2016 Cardiovascular fatigue 0 02/23/2016 Cardiovascular hypertension 02/23/2016 Respiratory No chest congestion 02/23/2016 Respiratory No cough Gastrointestinal No abdominal pain 02/23/2016 Gastrointestinal No constipation 02/23/2016 Gastrointestinal No diarrhea 02/23/2016 Gastrointestinal No nausea 02/23/2016 Gastrointestinal No vomiting 02/23/2016 Genitourinary/Nephrology urinary frequency 02/23/2016 Musculoskeletal No stiffness 02/23/2016 Musculoskeletal No arthralgia(s) 02/23/2016 Musculoskeletal back pain 02/23/2016 Dermatologic No rash Neurologic No alteration of consciousness 02/23/2016 Neurologic No mental status change 02/23/2016 Psychiatric No anxiety 0 02/23/2016 Psychiatric No depression 02/23/2016 Constitutional fatigue 0 12/10/2015 Constitutional No fever 12/10/2015 Constitutional No insomnia 12/10/2015 Eyes No blindness 2015 Eyes No vision change Ears/Nose/Throat/Neck No dizziness 12/10/2015 Cardiovascular No chest pain/pressure 12/10/2015 Cardiovascular fatigue 0 12/10/2015 Cardiovascular hypertension 12/10/2015 Respiratory No chest congestion 12/10/2015 Respiratory No cough Gastrointestinal No abdominal pain 12/10/2015 Gastrointestinal No constipation 12/10/2015 Gastrointestinal No diarrhea 12/10/2015 Gastrointestinal No nausea 12/10/2015 Gastrointestinal No vomiting 12/10/2015 Genitourinary/Nephrology urinary frequency 12/10/2015 Musculoskeletal No stiffness 12/10/2015 Musculoskeletal No arthralgia(s) 12/10/2015 Musculoskeletal back pain 12/10/2015 Dermatologic No rash Neurologic No alteration of consciousness 12/10/2015 Neurologic No mental status change 12/10/2015 Psychiatric No anxiety 0 12/10/2015 Psychiatric No depression 12/10/2015 Constitutional fatigue 0 11/10/2015 Constitutional No fever 11/10/2015 Constitutional No insomnia 11/10/2015 Eyes No blindness 2015 Eyes No vision change Ears/Nose/Throat/Neck No dizziness 11/10/2015 Cardiovascular No chest pain/pressure 11/10/2015 Cardiovascular fatigue 0 11/10/2015 Cardiovascular hypertension 11/10/2015 Respiratory No chest congestion 11/10/2015 Respiratory No cough Gastrointestinal No abdominal pain 11/10/2015 Gastrointestinal No constipation 11/10/2015 Gastrointestinal No diarrhea 11/10/2015 Gastrointestinal No nausea 11/10/2015 Gastrointestinal No vomiting 11/10/2015 Genitourinary/Nephrology urinary frequency 11/10/2015 Musculoskeletal No stiffness 11/10/2015 Musculoskeletal No arthralgia(s) 11/10/2015 Musculoskeletal back pain 11/10/2015 Dermatologic No rash Neurologic No alteration of consciousness 11/10/2015 Neurologic No mental status change 11/10/2015 Psychiatric No anxiety 0 11/10/2015 Psychiatric No depression 11/10/2015 Constitutional fatigue 0 08/07/2015 Constitutional No fever 08/07/2015 Constitutional No insomnia 08/07/2015 Eyes No blindness 2015 Eyes No vision change Ears/Nose/Throat/Neck No dizziness 08/07/2015 Cardiovascular No chest pain/pressure 08/07/2015 Cardiovascular dyspnea 0 08/07/2015 Cardiovascular edema 05/2016 Cardiovascular fatigue 0 08/07/2015 Cardiovascular hypertension 08/07/2015 Respiratory No chest congestion 08/07/2015 Respiratory No cough 05/2016 Gastrointestinal No abdominal pain 08/07/2015 Gastrointestinal No constipation 08/07/2015 Gastrointestinal No diarrhea 08/07/2015 Gastrointestinal No nausea 08/07/2015 Gastrointestinal No vomiting 08/07/2015 Genitourinary/Nephrology urinary frequency 08/07/2015 Musculoskeletal No stiffness 08/07/2015 Musculoskeletal No arthralgia(s) 08/07/2015 Musculoskeletal back pain 08/07/2015 Dermatologic No rash 05/2016 Neurologic No alteration of consciousness 08/07/2015 Neurologic No mental status change 08/07/2015 Psychiatric No anxiety 0 08/07/2015 Psychiatric No depression 08/07/2015 Constitutional fatigue 0 07/07/2015 Constitutional No fever 07/07/2015 Constitutional No insomnia 07/07/2015 Eyes No blindness 2015 Eyes No vision change Ears/Nose/Throat/Neck No dizziness 07/07/2015 Cardiovascular No chest pain/pressure 07/07/2015 Cardiovascular dyspnea 0 07/07/2015 Cardiovascular edema 05/2016 Cardiovascular fatigue 0 07/07/2015 Cardiovascular hypertension 07/07/2015 Respiratory No chest congestion 07/07/2015 Respiratory No cough 05/2016 Gastrointestinal No abdominal pain 07/07/2015 Gastrointestinal No constipation 07/07/2015 Gastrointestinal No diarrhea 07/07/2015 Gastrointestinal No nausea 07/07/2015 Gastrointestinal No vomiting 07/07/2015 Genitourinary/Nephrology urinary frequency 07/07/2015 Musculoskeletal No stiffness 07/07/2015 Musculoskeletal No arthralgia(s) 07/07/2015 Dermatologic No rash 05/2016 Neurologic No alteration of consciousness 07/07/2015 Neurologic No mental status change 07/07/2015 Psychiatric No anxiety 0 07/07/2015 Psychiatric No depression 07/07/2015 Musculoskeletal back pain 07/07/2015 Constitutional No chills 04/02/2015 Constitutional No fever 04/02/2015 Constitutional fatigue 1 Eyes No eye discharge Ears/Nose/Throat/Neck No nasal allergies 04/02/2015 Constitutional No recent illness 04/02/2015 Cardiovascular No dyspnea 04/02/2015 Cardiovascular fatigue 1 Respiratory No chest congestion 04/02/2015 Respiratory No cough 01/2015 Gastrointestinal dyspepsia 04/02/2015 Gastrointestinal No constipation 04/02/2015 Gastrointestinal No diarrhea 04/02/2015 Gastrointestinal gastroesophageal reflux 04/02/2015 Dermatologic erythema Constitutional fatigue 0 12/23/2014 Constitutional No insomnia 12/23/2014 Ears/Nose/Throat/Neck postnasal drip 12/23/2014 Cardiovascular fatigue 0 12/23/2014 Respiratory No chest congestion 12/23/2014 Respiratory No cough Gastrointestinal No abdominal pain 12/23/2014 Gastrointestinal No constipation 12/23/2014 Gastrointestinal No diarrhea 12/23/2014 Genitourinary/Nephrology urinary frequency 12/23/2014 Constitutional No fever 12/23/2014 Eyes No blindness 2014 Eyes No vision change Ears/Nose/Throat/Neck No dizziness 12/23/2014 Cardiovascular No chest pain/pressure 12/23/2014 Cardiovascular dyspnea 0 12/23/2014 Cardiovascular edema Cardiovascular hypertension 12/23/2014 Gastrointestinal No nausea 12/23/2014 Gastrointestinal No vomiting 12/23/2014 Musculoskeletal No stiffness 12/23/2014 Musculoskeletal No arthralgia(s) 12/23/2014 Dermatologic No rash Neurologic No alteration of consciousness 12/23/2014 Neurologic No mental status change 12/23/2014 Psychiatric No anxiety 0 12/23/2014 Psychiatric No depression 12/23/2014 Constitutional fatigue 0 10/22/2014 Constitutional No insomnia 10/22/2014 Cardiovascular dyspnea 0 10/22/2014 Cardiovascular No chest pain/pressure 10/22/2014 Respiratory No chest congestion 10/22/2014 Respiratory No cough Gastrointestinal No constipation 10/22/2014 Gastrointestinal No diarrhea 10/22/2014 Gastrointestinal No abdominal pain 10/22/2014 Constitutional No fever 10/22/2014 Eyes No blindness 2014 Eyes No vision change Ears/Nose/Throat/Neck No dizziness 10/22/2014 Cardiovascular edema Cardiovascular hypertension 10/22/2014 Gastrointestinal No nausea 10/22/2014 Gastrointestinal No vomiting 10/22/2014 Musculoskeletal No stiffness 10/22/2014 Musculoskeletal No arthralgia(s) 10/22/2014 Dermatologic No rash Neurologic No alteration of consciousness 10/22/2014 Neurologic No mental status change 10/22/2014 Psychiatric No anxiety 0 10/22/2014 Psychiatric No depression 10/22/2014 Constitutional recent illness 09/26/2014 Constitutional No anorexia 09/26/2014 Constitutional No night sweats 09/26/2014 Constitutional chills Constitutional diaphoresis 09/26/2014 Constitutional fatigue 0 09/26/2014 Constitutional fever 08/2014 Constitutional No insomnia 09/26/2014 Constitutional No malaise 09/26/2014 Constitutional No weight loss 09/26/2014 Constitutional No weight gain 09/26/2014 Eyes No eye discharge Eyes No eye erythema 08/2014 Ears/Nose/Throat/Neck No dizziness 09/26/2014 Ears/Nose/Throat/Neck nasal allergies 09/26/2014 Ears/Nose/Throat/Neck nasal discharge 09/26/2014 Ears/Nose/Throat/Neck No otalgia 09/26/2014 Ears/Nose/Throat/Neck sinus congestion 09/26/2014 Ears/Nose/Throat/Neck No sore throat 09/26/2014 Respiratory productive sputum 09/26/2014 Respiratory cough 2014 Gastrointestinal No constipation 09/26/2014 Gastrointestinal No diarrhea 09/26/2014 Genitourinary/Nephrology No dysuria 09/26/2014 Cardiovascular No chest pain/pressure 09/26/2014 Musculoskeletal No joint complaint 09/26/2014 Dermatologic No rash 08/2014 Dermatologic No sores Neurologic No alteration of consciousness 09/26/2014 Constitutional No fever 07/01/2014 Eyes No blindness 2014 Eyes No vision change Ears/Nose/Throat/Neck No dizziness 07/01/2014 Cardiovascular edema 11/2014 Cardiovascular fatigue 0 07/01/2014 Cardiovascular hypertension 07/01/2014 Respiratory No chest congestion 07/01/2014 Respiratory No cough 11/2014 Respiratory No dyspnea 0 07/01/2014 Gastrointestinal No abdominal pain 07/01/2014 Gastrointestinal No constipation 07/01/2014 Gastrointestinal No diarrhea 07/01/2014 Gastrointestinal No nausea 07/01/2014 Gastrointestinal No vomiting 07/01/2014 Musculoskeletal No stiffness 07/01/2014 Musculoskeletal No arthralgia(s) 07/01/2014 Dermatologic No rash 11/2014 Neurologic No alteration of consciousness 07/01/2014 Neurologic No mental status change 07/01/2014 Psychiatric No anxiety 0 07/01/2014 Psychiatric No depression 07/01/2014 Constitutional No fever 06/09/2014 Eyes No blindness 2013 Eyes No vision change Ears/Nose/Throat/Neck No dizziness 06/09/2014 Cardiovascular edema Cardiovascular fatigue 1 08/10/2013 Cardiovascular hypertension 06/09/2014 Respiratory No chest congestion 06/09/2014 Respiratory No cough Respiratory No dyspnea 1 08/10/2013 Gastrointestinal No abdominal pain 06/09/2014 Gastrointestinal No constipation 06/09/2014 Gastrointestinal No diarrhea 06/09/2014 Gastrointestinal No nausea 06/09/2014 Gastrointestinal No vomiting 06/09/2014 Musculoskeletal No stiffness 06/09/2014 Musculoskeletal No arthralgia(s) 06/09/2014 Dermatologic No rash Neurologic No alteration of consciousness 06/09/2014 Neurologic No mental status change 06/09/2014 Psychiatric No anxiety 1 08/10/2013 Psychiatric No depression 06/09/2014 Constitutional No fever 05/07/2014 Eyes No blindness 2013 Eyes No vision change Ears/Nose/Throat/Neck No dizziness 05/07/2014 Respiratory No chest congestion 05/07/2014 Respiratory No cough 05/2014 Respiratory No dyspnea 1 07/07/2013 Gastrointestinal No abdominal pain 05/07/2014 Gastrointestinal No constipation 05/07/2014 Gastrointestinal No diarrhea 05/07/2014 Gastrointestinal No nausea 05/07/2014 Gastrointestinal No vomiting 05/07/2014 Musculoskeletal No stiffness 05/07/2014 Musculoskeletal No arthralgia(s) 05/07/2014 Dermatologic No rash 05/2014 Neurologic No alteration of consciousness 05/07/2014 Neurologic No mental status change 05/07/2014 Cardiovascular hypertension 05/07/2014 Cardiovascular fatigue 1 07/07/2013 Cardiovascular edema 05/2014 Psychiatric No anxiety 1 07/07/2013 Psychiatric No depression 05/07/2014 Eyes No blindness 2013 Eyes No vision change Respiratory No chest congestion 04/21/2014 Respiratory No cough Respiratory No dyspnea 1 Gastrointestinal No abdominal pain 04/21/2014 Gastrointestinal No constipation 04/21/2014 Gastrointestinal No diarrhea 04/21/2014 Gastrointestinal nausea 04/21/2014 Musculoskeletal No stiffness 04/21/2014 Musculoskeletal No arthralgia(s) 04/21/2014 Dermatologic No rash Neurologic No alteration of consciousness 04/21/2014 Neurologic No mental status change 04/21/2014 Constitutional recent illness 04/21/2014 Constitutional fatigue 1 Constitutional fever Constitutional malaise 1 Constitutional weight loss 04/21/2014 Constitutional chills Ears/Nose/Throat/Neck No headache 04/21/2014 Ears/Nose/Throat/Neck No facial weakness 04/21/2014 Ears/Nose/Throat/Neck dizziness 04/21/2014 Cardiovascular No chest pain/pressure 04/21/2014 Cardiovascular dyspnea 1 Cardiovascular edema Cardiovascular fatigue 1 Genitourinary/Nephrology dysuria 04/21/2014 Genitourinary/Nephrology urinary urgency 04/21/2014 Genitourinary/Nephrology urinary frequency 04/21/2014 Psychiatric No anxiety 1 Psychiatric No depression 04/21/2014 Constitutional recent illness 02/14/2014 Constitutional No chills 02/14/2014 Constitutional No fatigue 02/14/2014 Constitutional No fever 02/14/2014 Constitutional No insomnia 02/14/2014 Constitutional No malaise 02/14/2014 Cardiovascular No chest pain/pressure 02/14/2014 Cardiovascular No dyspnea 02/14/2014 Cardiovascular No edema 02/14/2014 Cardiovascular No exercise intolerance 02/14/2014 Cardiovascular No fatigue 02/14/2014 Cardiovascular No near-syncope/dizziness 02/14/2014 Respiratory No chest tightness 02/14/2014 Respiratory No cigarette smoking 02/14/2014 Respiratory No cough Respiratory No dyspnea 0 02/14/2014 Respiratory No pedal edema 02/14/2014 Respiratory No snoring 0 02/14/2014 Respiratory No wheezing 02/14/2014 Musculoskeletal No stiffness 02/14/2014 Musculoskeletal No swelling 02/14/2014 Musculoskeletal No muscle weakness 02/14/2014 Musculoskeletal No myalgias 02/14/2014 Genitourinary/Nephrology No dysuria 02/14/2014 Genitourinary/Nephrology No nocturia 02/14/2014 Genitourinary/Nephrology No urinary incontinence 02/14/2014 Eyes No blindness 2013 Eyes No vision change Ears/Nose/Throat/Neck No dizziness 02/14/2014 Respiratory No chest congestion 02/14/2014 Gastrointestinal No abdominal pain 02/14/2014 Gastrointestinal No constipation 02/14/2014 Gastrointestinal No diarrhea 02/14/2014 Gastrointestinal No nausea 02/14/2014 Gastrointestinal No vomiting 02/14/2014 Musculoskeletal No arthralgia(s) 02/14/2014 Neurologic No alteration of consciousness 02/14/2014 Neurologic No mental status change 02/14/2014 Constitutional No fever 11/14/2013 Eyes No blindness 2013 Eyes No vision change Ears/Nose/Throat/Neck No dizziness 11/14/2013 Respiratory No chest congestion 11/14/2013 Respiratory No cough Respiratory No dyspnea 0 11/14/2013 Gastrointestinal No abdominal pain 11/14/2013 Gastrointestinal No constipation 11/14/2013 Gastrointestinal No diarrhea 11/14/2013 Gastrointestinal No nausea 11/14/2013 Gastrointestinal No vomiting 11/14/2013 Musculoskeletal No stiffness 11/14/2013 Musculoskeletal No arthralgia(s) 11/14/2013 Dermatologic No rash Neurologic No alteration of consciousness 11/14/2013 Neurologic No mental status change 11/14/2013 Constitutional No fever 10/24/2013 Eyes No blindness 2013 Eyes No vision change Ears/Nose/Throat/Neck No dizziness 10/24/2013 Respiratory No chest congestion 10/24/2013 Respiratory No cough 06/2013 Respiratory No dyspnea 0 10/24/2013 Gastrointestinal No abdominal pain 10/24/2013 Gastrointestinal No constipation 10/24/2013 Gastrointestinal No diarrhea 10/24/2013 Gastrointestinal No nausea 10/24/2013 Gastrointestinal No vomiting 10/24/2013 Musculoskeletal No stiffness 10/24/2013 Musculoskeletal No arthralgia(s) 10/24/2013 Dermatologic No rash 06/2013 Neurologic No alteration of consciousness 10/24/2013 Neurologic No mental status change 10/24/2013 Constitutional No fever 06/24/2013 Eyes No blindness 2012 Eyes No vision change Ears/Nose/Throat/Neck No dizziness 06/24/2013 Respiratory No chest congestion 06/24/2013 Respiratory No cough Respiratory No dyspnea 1 Gastrointestinal abdominal pain 06/24/2013 Gastrointestinal No constipation 06/24/2013 Gastrointestinal No diarrhea 06/24/2013 Gastrointestinal gas and bloating 06/24/2013 Gastrointestinal gastroesophageal reflux 06/24/2013 Gastrointestinal No nausea 06/24/2013 Gastrointestinal No vomiting 06/24/2013 Musculoskeletal No stiffness 06/24/2013 Musculoskeletal No arthralgia(s) 06/24/2013 Dermatologic No rash Neurologic No alteration of consciousness 06/24/2013 Neurologic No mental status change 06/24/2013 Constitutional No fever 06/05/2013 Eyes No blindness 2012 Eyes No vision change Ears/Nose/Throat/Neck No dizziness 06/05/2013 Respiratory No chest congestion 06/05/2013 Respiratory No cough 04/2013 Respiratory No dyspnea 1 08/06/2012 Gastrointestinal abdominal pain 06/05/2013 Gastrointestinal No constipation 06/05/2013 Gastrointestinal No diarrhea 06/05/2013 Gastrointestinal No nausea 06/05/2013 Gastrointestinal No vomiting 06/05/2013 Musculoskeletal No stiffness 06/05/2013 Musculoskeletal No arthralgia(s) 06/05/2013 Dermatologic No rash 04/2013 Neurologic No alteration of consciousness 06/05/2013 Neurologic No mental status change 06/05/2013 Gastrointestinal gas and bloating 06/05/2013 Gastrointestinal gastroesophageal reflux 06/05/2013 Constitutional No fever 04/01/2013 Ears/Nose/Throat/Neck No dizziness 04/01/2013 Respiratory No chest congestion 04/01/2013 Respiratory No cough 12/2012 Respiratory No dyspnea 1 Gastrointestinal No abdominal pain 04/01/2013 Gastrointestinal No constipation 04/01/2013 Gastrointestinal No diarrhea 04/01/2013 Gastrointestinal No nausea 04/01/2013 Gastrointestinal No vomiting 04/01/2013 Musculoskeletal No stiffness 04/01/2013 Musculoskeletal No arthralgia(s) 04/01/2013 Dermatologic No rash 12/2012 Neurologic No alteration of consciousness 04/01/2013 Neurologic No mental status change 04/01/2013 Eyes No blindness 2012 Eyes No vision change Constitutional No fever 01/29/2013 Ears/Nose/Throat/Neck No dizziness 01/29/2013 Respiratory No chest congestion 01/29/2013 Respiratory No cough 11/2012 Respiratory No dyspnea 0 01/29/2013 Gastrointestinal No abdominal pain 01/29/2013 Gastrointestinal No constipation 01/29/2013 Gastrointestinal No diarrhea 01/29/2013 Gastrointestinal No nausea 01/29/2013 Gastrointestinal No vomiting 01/29/2013 Musculoskeletal No stiffness 01/29/2013 Musculoskeletal No arthralgia(s) 01/29/2013 Dermatologic No rash 11/2012 Neurologic No alteration of consciousness 01/29/2013 Neurologic No mental status change 01/29/2013 Constitutional No fever 12/25/2012 Ears/Nose/Throat/Neck No dizziness 12/25/2012 Respiratory No chest congestion 12/25/2012 Respiratory No cough 07/2012 Respiratory No dyspnea 0 12/25/2012 Gastrointestinal No abdominal pain 12/25/2012 Gastrointestinal No constipation 12/25/2012 Gastrointestinal No diarrhea 12/25/2012 Gastrointestinal No nausea 12/25/2012 Gastrointestinal No vomiting 12/25/2012 Musculoskeletal No stiffness 12/25/2012 Musculoskeletal No arthralgia(s) 12/25/2012 Dermatologic No rash 07/2012 Neurologic No alteration of consciousness 12/25/2012 Neurologic No mental status change 12/25/2012 Constitutional No fever 10/01/2012 Ears/Nose/Throat/Neck No dizziness 10/01/2012 Respiratory No chest congestion 10/01/2012 Respiratory No cough 01/2013 Respiratory No dyspnea 0 10/01/2012 Gastrointestinal No abdominal pain 10/01/2012 Gastrointestinal No constipation 10/01/2012 Gastrointestinal No diarrhea 10/01/2012 Gastrointestinal No nausea 10/01/2012 Gastrointestinal No vomiting 10/01/2012 Dermatologic No rash 01/2013 Neurologic No alteration of consciousness 10/01/2012 Neurologic No mental status change 10/01/2012 Musculoskeletal No arthralgia(s) 10/01/2012 Musculoskeletal No stiffness 10/01/2012 Gastrointestinal No abdominal pain 06/29/2012 Gastrointestinal No constipation 06/29/2012 Gastrointestinal No diarrhea 06/29/2012 Gastrointestinal No nausea 06/29/2012 Gastrointestinal No vomiting 06/29/2012 Genitourinary/Nephrology No dysuria 06/29/2012 Cardiovascular No chest pain/pressure 06/29/2012 Ears/Nose/Throat/Neck No dizziness 06/29/2012 Ears/Nose/Throat/Neck No headache 06/29/2012 Ears/Nose/Throat/Neck nasal allergies 06/29/2012 Ears/Nose/Throat/Neck nasal discharge 06/29/2012 Ears/Nose/Throat/Neck sinus congestion 06/29/2012 Ears/Nose/Throat/Neck sore throat 06/29/2012 Ears/Nose/Throat/Neck No otalgia 06/29/2012 Eyes No eye discharge Eyes No eye erythema 09/2012 Constitutional No fatigue 06/29/2012 Constitutional recent illness 06/29/2012 Constitutional No night sweats 06/29/2012 Constitutional No anorexia 06/29/2012 Constitutional chills Constitutional diaphoresis 06/29/2012 Constitutional fever 09/2012 Musculoskeletal No joint complaint 06/29/2012 Dermatologic No sores Dermatologic No rash 09/2012 Constitutional recent illness 05/28/2012 Constitutional No chills 05/28/2012 Constitutional No fatigue 05/28/2012 Constitutional fever 08/2011 Constitutional No insomnia 05/28/2012 Constitutional No malaise 05/28/2012 Cardiovascular No chest pain/pressure 05/28/2012 Cardiovascular No dyspnea 05/28/2012 Cardiovascular No edema 05/28/2012 Cardiovascular No exercise intolerance 05/28/2012 Cardiovascular No fatigue 05/28/2012 Cardiovascular No near-syncope/dizziness 05/28/2012 Gastrointestinal No hemorrhoids 05/28/2012 Gastrointestinal No abdominal pain 05/28/2012 Gastrointestinal No constipation 05/28/2012 Gastrointestinal No diarrhea 05/28/2012 Gastrointestinal No gastroesophageal reflu x 05/28/2012 Gastrointestinal No melena 05/28/2012 Gastrointestinal No nausea 05/28/2012 Gastrointestinal No vomiting 05/28/2012 Genitourinary/Nephrology No dysuria 05/28/2012 Genitourinary/Nephrology No nocturia 05/28/2012 Genitourinary/Nephrology No urinary incontinence 05/28/2012 Dermatologic No rash 08/2011 Dermatologic No scar 08/2011 Cardiovascular No syncope 04/02/2012 Constitutional No fever 04/02/2012 Dermatologic No rash 01/2012 Gastrointestinal No abdominal pain 04/02/2012 Neurologic No alteration of consciousness 04/02/2012 Neurologic No mental status change 04/02/2012 Respiratory No chest congestion 04/02/2012 Respiratory No cough 01/2012 Eyes cataract 04/02/2012 Ears/Nose/Throat/Neck No dizziness 04/02/2012 Cardiovascular No chest pain/pressure 04/02/2012 Respiratory No dyspnea 1 Gastrointestinal No constipation 04/02/2012 Gastrointestinal No diarrhea 04/02/2012 Gastrointestinal No nausea 04/02/2012 Gastrointestinal No vomiting 04/02/2012 Constitutional recent illness 01/24/2012 Constitutional No anorexia 01/24/2012 Constitutional No night sweats 01/24/2012 Constitutional No chills 01/24/2012 Constitutional No diaphoresis 01/24/2012 Constitutional No insomnia 01/24/2012 Constitutional No fever 01/24/2012 Constitutional fatigue 0 01/24/2012 Eyes No eye discharge Eyes No eye erythema Cardiovascular No chest pain/pressure 01/24/2012 Gastrointestinal No vomiting 01/24/2012 Gastrointestinal No nausea 01/24/2012 Gastrointestinal No abdominal pain 01/24/2012 Gastrointestinal No constipation 01/24/2012 Gastrointestinal No diarrhea 01/24/2012 Genitourinary/Nephrology No dysuria 01/24/2012 Musculoskeletal No joint complaint 01/24/2012 Dermatologic No rash Dermatologic No sores Constitutional No fever 10/03/2011 Eyes cataract 10/03/2011 Ears/Nose/Throat/Neck No dizziness 10/03/2011 Cardiovascular No chest pain/pressure 10/03/2011 Respiratory No dyspnea 0 10/03/2011 Gastrointestinal No vomiting 10/03/2011 Gastrointestinal No nausea 10/03/2011 Gastrointestinal No diarrhea 10/03/2011 Gastrointestinal No constipation 10/03/2011 Cardiovascular No syncope 10/03/2011 Respiratory No chest congestion 10/03/2011 Respiratory No cough 02/2012 Gastrointestinal No abdominal pain 10/03/2011 Dermatologic No rash 02/2012 Neurologic No alteration of consciousness 10/03/2011 Neurologic No mental status change 10/03/2011 Constitutional No fever 05/30/2011 Constitutional No chills 05/30/2011 Constitutional No fatigue 05/30/2011 Cardiovascular No chest pain/pressure 05/30/2011 Gastrointestinal No nausea 05/30/2011 Gastrointestinal No vomiting 05/30/2011 Dermatologic No rash 10/2010 Dermatologic No sores Musculoskeletal No stiffness 05/30/2011 Musculoskeletal No arthralgia(s) 05/30/2011 System Result Effective Dates Constitutional No fever 07/21/2017 Eyes cataract 07/21/2017 Ears/Nose/Throat/Neck No dizziness 07/21/2017 Cardiovascular No chest pain/pressure 07/21/2017 Cardiovascular No syncope 07/21/2017 Respiratory No chest congestion 07/21/2017 Respiratory No cough Respiratory No dyspnea 0 07/21/2017 Gastrointestinal No abdominal pain 07/21/2017 Gastrointestinal No constipation 07/21/2017 Gastrointestinal No diarrhea 07/21/2017 Gastrointestinal No nausea 07/21/2017 Gastrointestinal No vomiting 07/21/2017 Musculoskeletal No stiffness 07/21/2017 Musculoskeletal No swelling 07/21/2017 Musculoskeletal No muscle weakness 07/21/2017 Musculoskeletal No myalgias 07/21/2017 Dermatologic No rash Neurologic No alteration of consciousness 07/21/2017 Neurologic No mental status change 07/21/2017 Psychiatric No anxiety 0 07/21/2017 Constitutional recent illness 07/21/2017 Constitutional No fever 05/04/2017 Eyes cataract 05/04/2017 Ears/Nose/Throat/Neck No dizziness 05/04/2017 Cardiovascular No chest pain/pressure 05/04/2017 Cardiovascular No syncope 05/04/2017 Respiratory No chest congestion 05/04/2017 Respiratory No cough 02/2017 Respiratory No dyspnea 1 07/04/2016 Gastrointestinal No abdominal pain 05/04/2017 Gastrointestinal No constipation 05/04/2017 Gastrointestinal No diarrhea 05/04/2017 Gastrointestinal No nausea 05/04/2017 Gastrointestinal No vomiting 05/04/2017 Dermatologic No rash 02/2017 Neurologic No alteration of consciousness 05/04/2017 Neurologic No mental status change 05/04/2017 Musculoskeletal No stiffness 05/04/2017 Musculoskeletal No swelling 05/04/2017 Musculoskeletal No muscle weakness 05/04/2017 Musculoskeletal No myalgias 05/04/2017 Psychiatric No anxiety 1 07/04/2016 Constitutional recent illness 03/30/2017 Constitutional fatigue 1 Constitutional malaise 1 Cardiovascular exercise intolerance 03/30/2017 Cardiovascular fatigue 1 Respiratory No chest congestion 03/30/2017 Respiratory No chest tightness 03/30/2017 Gastrointestinal No abdominal pain 03/30/2017 Psychiatric No anxiety 1 Psychiatric No depression 03/30/2017 Musculoskeletal stiffness 03/30/2017 Constitutional No fever 03/30/2017 Constitutional No insomnia 03/30/2017 Ears/Nose/Throat/Neck dizziness 03/30/2017 Cardiovascular No chest pain/pressure 03/30/2017 Cardiovascular hypertension 03/30/2017 Respiratory No cough 10/2016 Gastrointestinal No constipation 03/30/2017 Gastrointestinal No diarrhea 03/30/2017 Gastrointestinal No nausea 03/30/2017 Gastrointestinal No vomiting 03/30/2017 Genitourinary/Nephrology urinary frequency 03/30/2017 Musculoskeletal arthralgia(s) 03/30/2017 Musculoskeletal back pain 03/30/2017 Musculoskeletal muscle weakness 03/30/2017 Constitutional No fever 03/02/2017 Constitutional No insomnia 03/02/2017 Eyes No blindness 2016 Eyes No vision change Ears/Nose/Throat/Neck No dizziness 03/02/2017 Cardiovascular No chest pain/pressure 03/02/2017 Cardiovascular fatigue 0 03/02/2017 Cardiovascular hypertension 03/02/2017 Respiratory No chest congestion 03/02/2017 Respiratory No cough 12/2016 Gastrointestinal No abdominal pain 03/02/2017 Gastrointestinal No constipation 03/02/2017 Gastrointestinal No diarrhea 03/02/2017 Gastrointestinal No nausea 03/02/2017 Gastrointestinal No vomiting 03/02/2017 Genitourinary/Nephrology urinary frequency 03/02/2017 Musculoskeletal No stiffness 03/02/2017 Musculoskeletal No arthralgia(s) 03/02/2017 Musculoskeletal back pain 03/02/2017 Dermatologic No rash 12/2016 Neurologic No alteration of consciousness 03/02/2017 Neurologic No mental status change 03/02/2017 Psychiatric No anxiety 0 03/02/2017 Psychiatric No depression 03/02/2017 Constitutional No recent illness 03/02/2017 Constitutional fatigue 0 03/02/2017 Constitutional fatigue 0 01/31/2017 Constitutional No fever 01/31/2017 Constitutional No insomnia 01/31/2017 Eyes No blindness 2016 Eyes No vision change Ears/Nose/Throat/Neck dizziness 01/31/2017 Cardiovascular No chest pain/pressure 01/31/2017 Cardiovascular fatigue 0 01/31/2017 Cardiovascular hypertension 01/31/2017 Respiratory No chest congestion 01/31/2017 Respiratory No cough 01/2017 Gastrointestinal No abdominal pain 01/31/2017 Gastrointestinal No constipation 01/31/2017 Gastrointestinal No diarrhea 01/31/2017 Gastrointestinal No nausea 01/31/2017 Gastrointestinal No vomiting 01/31/2017 Genitourinary/Nephrology urinary frequency 01/31/2017 Musculoskeletal stiffness 01/31/2017 Musculoskeletal arthralgia(s) 01/31/2017 Musculoskeletal back pain 01/31/2017 Dermatologic No rash 01/2017 Neurologic No alteration of consciousness 01/31/2017 Neurologic No mental status change 01/31/2017 Psychiatric No anxiety 0 01/31/2017 Psychiatric No depression 01/31/2017 Musculoskeletal muscle weakness 01/31/2017 Constitutional fatigue 0 10/25/2016 Constitutional No fever 10/25/2016 Constitutional No insomnia 10/25/2016 Eyes No blindness 2016 Eyes No vision change Ears/Nose/Throat/Neck No dizziness 10/25/2016 Cardiovascular No chest pain/pressure 10/25/2016 Cardiovascular fatigue 0 10/25/2016 Cardiovascular hypertension 10/25/2016 Respiratory No chest congestion 10/25/2016 Respiratory No cough 07/2016 Gastrointestinal No abdominal pain 10/25/2016 Gastrointestinal No constipation 10/25/2016 Gastrointestinal No diarrhea 10/25/2016 Gastrointestinal No nausea 10/25/2016 Gastrointestinal No vomiting 10/25/2016 Genitourinary/Nephrology urinary frequency 10/25/2016 Musculoskeletal No stiffness 10/25/2016 Musculoskeletal No arthralgia(s) 10/25/2016 Musculoskeletal back pain 10/25/2016 Dermatologic No rash 07/2016 Neurologic No alteration of consciousness 10/25/2016 Neurologic No mental status change 10/25/2016 Psychiatric No anxiety 0 10/25/2016 Psychiatric No depression 10/25/2016 Constitutional fatigue 0 07/27/2016 Constitutional No fever 07/27/2016 Constitutional No insomnia 07/27/2016 Eyes No blindness 2016 Eyes No vision change Ears/Nose/Throat/Neck No dizziness 07/27/2016 Cardiovascular No chest pain/pressure 07/27/2016 Cardiovascular fatigue 0 07/27/2016 Cardiovascular hypertension 07/27/2016 Respiratory No chest congestion 07/27/2016 Respiratory No cough 06/2016 Gastrointestinal No abdominal pain 07/27/2016 Gastrointestinal No constipation 07/27/2016 Gastrointestinal No diarrhea 07/27/2016 Gastrointestinal No nausea 07/27/2016 Gastrointestinal No vomiting 07/27/2016 Genitourinary/Nephrology urinary frequency 07/27/2016 Musculoskeletal No stiffness 07/27/2016 Musculoskeletal No arthralgia(s) 07/27/2016 Musculoskeletal back pain 07/27/2016 Dermatologic No rash 06/2016 Neurologic No alteration of consciousness 07/27/2016 Neurologic No mental status change 07/27/2016 Psychiatric No anxiety 0 07/27/2016 Psychiatric No depression 07/27/2016 Constitutional fatigue 1 07/27/2015 Constitutional No fever 05/26/2016 Constitutional No insomnia 05/26/2016 Eyes No blindness 2015 Eyes No vision change Ears/Nose/Throat/Neck No dizziness 05/26/2016 Cardiovascular No chest pain/pressure 05/26/2016 Cardiovascular fatigue 1 07/27/2015 Cardiovascular hypertension 05/26/2016 Respiratory No chest congestion 05/26/2016 Respiratory No cough 06/2015 Gastrointestinal No abdominal pain 05/26/2016 Gastrointestinal No constipation 05/26/2016 Gastrointestinal No diarrhea 05/26/2016 Gastrointestinal No nausea 05/26/2016 Gastrointestinal No vomiting 05/26/2016 Genitourinary/Nephrology urinary frequency 05/26/2016 Musculoskeletal No stiffness 05/26/2016 Musculoskeletal No arthralgia(s) 05/26/2016 Musculoskeletal back pain 05/26/2016 Dermatologic No rash 06/2015 Neurologic No alteration of consciousness 05/26/2016 Neurologic No mental status change 05/26/2016 Psychiatric No anxiety 1 07/27/2015 Psychiatric No depression 05/26/2016 Constitutional fatigue 1 07/12/2015 Constitutional No fever 05/12/2016 Constitutional No insomnia 05/12/2016 Eyes No blindness 2015 Eyes No vision change Ears/Nose/Throat/Neck No dizziness 05/12/2016 Cardiovascular No chest pain/pressure 05/12/2016 Cardiovascular fatigue 1 07/12/2015 Cardiovascular hypertension 05/12/2016 Respiratory No chest congestion 05/12/2016 Respiratory No cough Gastrointestinal No abdominal pain 05/12/2016 Gastrointestinal No constipation 05/12/2016 Gastrointestinal No diarrhea 05/12/2016 Gastrointestinal No nausea 05/12/2016 Gastrointestinal No vomiting 05/12/2016 Genitourinary/Nephrology urinary frequency 05/12/2016 Musculoskeletal No stiffness 05/12/2016 Musculoskeletal No arthralgia(s) 05/12/2016 Musculoskeletal back pain 05/12/2016 Dermatologic No rash Neurologic No alteration of consciousness 05/12/2016 Neurologic No mental status change 05/12/2016 Psychiatric No anxiety 1 07/12/2015 Psychiatric No depression 05/12/2016 Constitutional fatigue 0 02/23/2016 Constitutional No fever 02/23/2016 Constitutional No insomnia 02/23/2016 Eyes No blindness 2015 Eyes No vision change Ears/Nose/Throat/Neck No dizziness 02/23/2016 Cardiovascular No chest pain/pressure 02/23/2016 Cardiovascular fatigue 0 02/23/2016 Cardiovascular hypertension 02/23/2016 Respiratory No chest congestion 02/23/2016 Respiratory No cough Gastrointestinal No abdominal pain 02/23/2016 Gastrointestinal No constipation 02/23/2016 Gastrointestinal No diarrhea 02/23/2016 Gastrointestinal No nausea 02/23/2016 Gastrointestinal No vomiting 02/23/2016 Genitourinary/Nephrology urinary frequency 02/23/2016 Musculoskeletal No stiffness 02/23/2016 Musculoskeletal No arthralgia(s) 02/23/2016 Musculoskeletal back pain 02/23/2016 Dermatologic No rash Neurologic No alteration of consciousness 02/23/2016 Neurologic No mental status change 02/23/2016 Psychiatric No anxiety 0 02/23/2016 Psychiatric No depression 02/23/2016 Constitutional fatigue 0 12/10/2015 Constitutional No fever 12/10/2015 Constitutional No insomnia 12/10/2015 Eyes No blindness 2015 Eyes No vision change Ears/Nose/Throat/Neck No dizziness 12/10/2015 Cardiovascular No chest pain/pressure 12/10/2015 Cardiovascular fatigue 0 12/10/2015 Cardiovascular hypertension 12/10/2015 Respiratory No chest congestion 12/10/2015 Respiratory No cough Gastrointestinal No abdominal pain 12/10/2015 Gastrointestinal No constipation 12/10/2015 Gastrointestinal No diarrhea 12/10/2015 Gastrointestinal No nausea 12/10/2015 Gastrointestinal No vomiting 12/10/2015 Genitourinary/Nephrology urinary frequency 12/10/2015 Musculoskeletal No stiffness 12/10/2015 Musculoskeletal No arthralgia(s) 12/10/2015 Musculoskeletal back pain 12/10/2015 Dermatologic No rash Neurologic No alteration of consciousness 12/10/2015 Neurologic No mental status change 12/10/2015 Psychiatric No anxiety 0 12/10/2015 Psychiatric No depression 12/10/2015 Constitutional fatigue 0 11/10/2015 Constitutional No fever 11/10/2015 Constitutional No insomnia 11/10/2015 Eyes No blindness 2015 Eyes No vision change Ears/Nose/Throat/Neck No dizziness 11/10/2015 Cardiovascular No chest pain/pressure 11/10/2015 Cardiovascular fatigue 0 11/10/2015 Cardiovascular hypertension 11/10/2015 Respiratory No chest congestion 11/10/2015 Respiratory No cough Gastrointestinal No abdominal pain 11/10/2015 Gastrointestinal No constipation 11/10/2015 Gastrointestinal No diarrhea 11/10/2015 Gastrointestinal No nausea 11/10/2015 Gastrointestinal No vomiting 11/10/2015 Genitourinary/Nephrology urinary frequency 11/10/2015 Musculoskeletal No stiffness 11/10/2015 Musculoskeletal No arthralgia(s) 11/10/2015 Musculoskeletal back pain 11/10/2015 Dermatologic No rash Neurologic No alteration of consciousness 11/10/2015 Neurologic No mental status change 11/10/2015 Psychiatric No anxiety 0 11/10/2015 Psychiatric No depression 11/10/2015 Constitutional fatigue 0 08/07/2015 Constitutional No fever 08/07/2015 Constitutional No insomnia 08/07/2015 Eyes No blindness 2015 Eyes No vision change Ears/Nose/Throat/Neck No dizziness 08/07/2015 Cardiovascular No chest pain/pressure 08/07/2015 Cardiovascular dyspnea 0 08/07/2015 Cardiovascular edema 05/2016 Cardiovascular fatigue 0 08/07/2015 Cardiovascular hypertension 08/07/2015 Respiratory No chest congestion 08/07/2015 Respiratory No cough 05/2016 Gastrointestinal No abdominal pain 08/07/2015 Gastrointestinal No constipation 08/07/2015 Gastrointestinal No diarrhea 08/07/2015 Gastrointestinal No nausea 08/07/2015 Gastrointestinal No vomiting 08/07/2015 Genitourinary/Nephrology urinary frequency 08/07/2015 Musculoskeletal No stiffness 08/07/2015 Musculoskeletal No arthralgia(s) 08/07/2015 Musculoskeletal back pain 08/07/2015 Dermatologic No rash 05/2016 Neurologic No alteration of consciousness 08/07/2015 Neurologic No mental status change 08/07/2015 Psychiatric No anxiety 0 08/07/2015 Psychiatric No depression 08/07/2015 Constitutional fatigue 0 07/07/2015 Constitutional No fever 07/07/2015 Constitutional No insomnia 07/07/2015 Eyes No blindness 2015 Eyes No vision change Ears/Nose/Throat/Neck No dizziness 07/07/2015 Cardiovascular No chest pain/pressure 07/07/2015 Cardiovascular dyspnea 0 07/07/2015 Cardiovascular edema 05/2016 Cardiovascular fatigue 0 07/07/2015 Cardiovascular hypertension 07/07/2015 Respiratory No chest congestion 07/07/2015 Respiratory No cough 05/2016 Gastrointestinal No abdominal pain 07/07/2015 Gastrointestinal No constipation 07/07/2015 Gastrointestinal No diarrhea 07/07/2015 Gastrointestinal No nausea 07/07/2015 Gastrointestinal No vomiting 07/07/2015 Genitourinary/Nephrology urinary frequency 07/07/2015 Musculoskeletal No stiffness 07/07/2015 Musculoskeletal No arthralgia(s) 07/07/2015 Dermatologic No rash 05/2016 Neurologic No alteration of consciousness 07/07/2015 Neurologic No mental status change 07/07/2015 Psychiatric No anxiety 0 07/07/2015 Psychiatric No depression 07/07/2015 Musculoskeletal back pain 07/07/2015 Constitutional No chills 04/02/2015 Constitutional No fever 04/02/2015 Constitutional fatigue 1 Eyes No eye discharge Ears/Nose/Throat/Neck No nasal allergies 04/02/2015 Constitutional No recent illness 04/02/2015 Cardiovascular No dyspnea 04/02/2015 Cardiovascular fatigue 1 Respiratory No chest congestion 04/02/2015 Respiratory No cough 01/2015 Gastrointestinal dyspepsia 04/02/2015 Gastrointestinal No constipation 04/02/2015 Gastrointestinal No diarrhea 04/02/2015 Gastrointestinal gastroesophageal reflux 04/02/2015 Dermatologic erythema Constitutional fatigue 0 12/23/2014 Constitutional No insomnia 12/23/2014 Ears/Nose/Throat/Neck postnasal drip 12/23/2014 Cardiovascular fatigue 0 12/23/2014 Respiratory No chest congestion 12/23/2014 Respiratory No cough Gastrointestinal No abdominal pain 12/23/2014 Gastrointestinal No constipation 12/23/2014 Gastrointestinal No diarrhea 12/23/2014 Genitourinary/Nephrology urinary frequency 12/23/2014 Constitutional No fever 12/23/2014 Eyes No blindness 2014 Eyes No vision change Ears/Nose/Throat/Neck No dizziness 12/23/2014 Cardiovascular No chest pain/pressure 12/23/2014 Cardiovascular dyspnea 0 12/23/2014 Cardiovascular edema Cardiovascular hypertension 12/23/2014 Gastrointestinal No nausea 12/23/2014 Gastrointestinal No vomiting 12/23/2014 Musculoskeletal No stiffness 12/23/2014 Musculoskeletal No arthralgia(s) 12/23/2014 Dermatologic No rash Neurologic No alteration of consciousness 12/23/2014 Neurologic No mental status change 12/23/2014 Psychiatric No anxiety 0 12/23/2014 Psychiatric No depression 12/23/2014 Constitutional fatigue 0 10/22/2014 Constitutional No insomnia 10/22/2014 Cardiovascular dyspnea 0 10/22/2014 Cardiovascular No chest pain/pressure 10/22/2014 Respiratory No chest congestion 10/22/2014 Respiratory No cough Gastrointestinal No constipation 10/22/2014 Gastrointestinal No diarrhea 10/22/2014 Gastrointestinal No abdominal pain 10/22/2014 Constitutional No fever 10/22/2014 Eyes No blindness 2014 Eyes No vision change Ears/Nose/Throat/Neck No dizziness 10/22/2014 Cardiovascular edema Cardiovascular hypertension 10/22/2014 Gastrointestinal No nausea 10/22/2014 Gastrointestinal No vomiting 10/22/2014 Musculoskeletal No stiffness 10/22/2014 Musculoskeletal No arthralgia(s) 10/22/2014 Dermatologic No rash Neurologic No alteration of consciousness 10/22/2014 Neurologic No mental status change 10/22/2014 Psychiatric No anxiety 0 10/22/2014 Psychiatric No depression 10/22/2014 Constitutional recent illness 09/26/2014 Constitutional No anorexia 09/26/2014 Constitutional No night sweats 09/26/2014 Constitutional chills Constitutional diaphoresis 09/26/2014 Constitutional fatigue 0 09/26/2014 Constitutional fever 08/2014 Constitutional No insomnia 09/26/2014 Constitutional No malaise 09/26/2014 Constitutional No weight loss 09/26/2014 Constitutional No weight gain 09/26/2014 Eyes No eye discharge Eyes No eye erythema 08/2014 Ears/Nose/Throat/Neck No dizziness 09/26/2014 Ears/Nose/Throat/Neck nasal allergies 09/26/2014 Ears/Nose/Throat/Neck nasal discharge 09/26/2014 Ears/Nose/Throat/Neck No otalgia 09/26/2014 Ears/Nose/Throat/Neck sinus congestion 09/26/2014 Ears/Nose/Throat/Neck No sore throat 09/26/2014 Respiratory productive sputum 09/26/2014 Respiratory cough 2014 Gastrointestinal No constipation 09/26/2014 Gastrointestinal No diarrhea 09/26/2014 Genitourinary/Nephrology No dysuria 09/26/2014 Cardiovascular No chest pain/pressure 09/26/2014 Musculoskeletal No joint complaint 09/26/2014 Dermatologic No rash 08/2014 Dermatologic No sores Neurologic No alteration of consciousness 09/26/2014 Constitutional No fever 07/01/2014 Eyes No blindness 2014 Eyes No vision change Ears/Nose/Throat/Neck No dizziness 07/01/2014 Cardiovascular edema 11/2014 Cardiovascular fatigue 0 07/01/2014 Cardiovascular hypertension 07/01/2014 Respiratory No chest congestion 07/01/2014 Respiratory No cough 11/2014 Respiratory No dyspnea 0 07/01/2014 Gastrointestinal No abdominal pain 07/01/2014 Gastrointestinal No constipation 07/01/2014 Gastrointestinal No diarrhea 07/01/2014 Gastrointestinal No nausea 07/01/2014 Gastrointestinal No vomiting 07/01/2014 Musculoskeletal No stiffness 07/01/2014 Musculoskeletal No arthralgia(s) 07/01/2014 Dermatologic No rash 11/2014 Neurologic No alteration of consciousness 07/01/2014 Neurologic No mental status change 07/01/2014 Psychiatric No anxiety 0 07/01/2014 Psychiatric No depression 07/01/2014 Constitutional No fever 06/09/2014 Eyes No blindness 2013 Eyes No vision change Ears/Nose/Throat/Neck No dizziness 06/09/2014 Cardiovascular edema Cardiovascular fatigue 1 08/10/2013 Cardiovascular hypertension 06/09/2014 Respiratory No chest congestion 06/09/2014 Respiratory No cough Respiratory No dyspnea 1 08/10/2013 Gastrointestinal No abdominal pain 06/09/2014 Gastrointestinal No constipation 06/09/2014 Gastrointestinal No diarrhea 06/09/2014 Gastrointestinal No nausea 06/09/2014 Gastrointestinal No vomiting 06/09/2014 Musculoskeletal No stiffness 06/09/2014 Musculoskeletal No arthralgia(s) 06/09/2014 Dermatologic No rash Neurologic No alteration of consciousness 06/09/2014 Neurologic No mental status change 06/09/2014 Psychiatric No anxiety 1 08/10/2013 Psychiatric No depression 06/09/2014 Constitutional No fever 05/07/2014 Eyes No blindness 2013 Eyes No vision change Ears/Nose/Throat/Neck No dizziness 05/07/2014 Respiratory No chest congestion 05/07/2014 Respiratory No cough 05/2014 Respiratory No dyspnea 1 07/07/2013 Gastrointestinal No abdominal pain 05/07/2014 Gastrointestinal No constipation 05/07/2014 Gastrointestinal No diarrhea 05/07/2014 Gastrointestinal No nausea 05/07/2014 Gastrointestinal No vomiting 05/07/2014 Musculoskeletal No stiffness 05/07/2014 Musculoskeletal No arthralgia(s) 05/07/2014 Dermatologic No rash 05/2014 Neurologic No alteration of consciousness 05/07/2014 Neurologic No mental status change 05/07/2014 Cardiovascular hypertension 05/07/2014 Cardiovascular fatigue 1 07/07/2013 Cardiovascular edema 05/2014 Psychiatric No anxiety 1 07/07/2013 Psychiatric No depression 05/07/2014 Eyes No blindness 2013 Eyes No vision change Respiratory No chest congestion 04/21/2014 Respiratory No cough Respiratory No dyspnea 1 Gastrointestinal No abdominal pain 04/21/2014 Gastrointestinal No constipation 04/21/2014 Gastrointestinal No diarrhea 04/21/2014 Gastrointestinal nausea 04/21/2014 Musculoskeletal No stiffness 04/21/2014 Musculoskeletal No arthralgia(s) 04/21/2014 Dermatologic No rash Neurologic No alteration of consciousness 04/21/2014 Neurologic No mental status change 04/21/2014 Constitutional recent illness 04/21/2014 Constitutional fatigue 1 Constitutional fever Constitutional malaise 1 Constitutional weight loss 04/21/2014 Constitutional chills Ears/Nose/Throat/Neck No headache 04/21/2014 Ears/Nose/Throat/Neck No facial weakness 04/21/2014 Ears/Nose/Throat/Neck dizziness 04/21/2014 Cardiovascular No chest pain/pressure 04/21/2014 Cardiovascular dyspnea 1 Cardiovascular edema Cardiovascular fatigue 1 Genitourinary/Nephrology dysuria 04/21/2014 Genitourinary/Nephrology urinary urgency 04/21/2014 Genitourinary/Nephrology urinary frequency 04/21/2014 Psychiatric No anxiety 1 Psychiatric No depression 04/21/2014 Constitutional recent illness 02/14/2014 Constitutional No chills 02/14/2014 Constitutional No fatigue 02/14/2014 Constitutional No fever 02/14/2014 Constitutional No insomnia 02/14/2014 Constitutional No malaise 02/14/2014 Cardiovascular No chest pain/pressure 02/14/2014 Cardiovascular No dyspnea 02/14/2014 Cardiovascular No edema 02/14/2014 Cardiovascular No exercise intolerance 02/14/2014 Cardiovascular No fatigue 02/14/2014 Cardiovascular No near-syncope/dizziness 02/14/2014 Respiratory No chest tightness 02/14/2014 Respiratory No cigarette smoking 02/14/2014 Respiratory No cough Respiratory No dyspnea 0 02/14/2014 Respiratory No pedal edema 02/14/2014 Respiratory No snoring 0 02/14/2014 Respiratory No wheezing 02/14/2014 Musculoskeletal No stiffness 02/14/2014 Musculoskeletal No swelling 02/14/2014 Musculoskeletal No muscle weakness 02/14/2014 Musculoskeletal No myalgias 02/14/2014 Genitourinary/Nephrology No dysuria 02/14/2014 Genitourinary/Nephrology No nocturia 02/14/2014 Genitourinary/Nephrology No urinary incontinence 02/14/2014 Eyes No blindness 2013 Eyes No vision change Ears/Nose/Throat/Neck No dizziness 02/14/2014 Respiratory No chest congestion 02/14/2014 Gastrointestinal No abdominal pain 02/14/2014 Gastrointestinal No constipation 02/14/2014 Gastrointestinal No diarrhea 02/14/2014 Gastrointestinal No nausea 02/14/2014 Gastrointestinal No vomiting 02/14/2014 Musculoskeletal No arthralgia(s) 02/14/2014 Neurologic No alteration of consciousness 02/14/2014 Neurologic No mental status change 02/14/2014 Constitutional No fever 11/14/2013 Eyes No blindness 2013 Eyes No vision change Ears/Nose/Throat/Neck No dizziness 11/14/2013 Respiratory No chest congestion 11/14/2013 Respiratory No cough Respiratory No dyspnea 0 11/14/2013 Gastrointestinal No abdominal pain 11/14/2013 Gastrointestinal No constipation 11/14/2013 Gastrointestinal No diarrhea 11/14/2013 Gastrointestinal No nausea 11/14/2013 Gastrointestinal No vomiting 11/14/2013 Musculoskeletal No stiffness 11/14/2013 Musculoskeletal No arthralgia(s) 11/14/2013 Dermatologic No rash Neurologic No alteration of consciousness 11/14/2013 Neurologic No mental status change 11/14/2013 Constitutional No fever 10/24/2013 Eyes No blindness 2013 Eyes No vision change Ears/Nose/Throat/Neck No dizziness 10/24/2013 Respiratory No chest congestion 10/24/2013 Respiratory No cough 06/2013 Respiratory No dyspnea 0 10/24/2013 Gastrointestinal No abdominal pain 10/24/2013 Gastrointestinal No constipation 10/24/2013 Gastrointestinal No diarrhea 10/24/2013 Gastrointestinal No nausea 10/24/2013 Gastrointestinal No vomiting 10/24/2013 Musculoskeletal No stiffness 10/24/2013 Musculoskeletal No arthralgia(s) 10/24/2013 Dermatologic No rash 06/2013 Neurologic No alteration of consciousness 10/24/2013 Neurologic No mental status change 10/24/2013 Constitutional No fever 06/24/2013 Eyes No blindness 2012 Eyes No vision change Ears/Nose/Throat/Neck No dizziness 06/24/2013 Respiratory No chest congestion 06/24/2013 Respiratory No cough Respiratory No dyspnea 1 Gastrointestinal abdominal pain 06/24/2013 Gastrointestinal No constipation 06/24/2013 Gastrointestinal No diarrhea 06/24/2013 Gastrointestinal gas and bloating 06/24/2013 Gastrointestinal gastroesophageal reflux 06/24/2013 Gastrointestinal No nausea 06/24/2013 Gastrointestinal No vomiting 06/24/2013 Musculoskeletal No stiffness 06/24/2013 Musculoskeletal No arthralgia(s) 06/24/2013 Dermatologic No rash Neurologic No alteration of consciousness 06/24/2013 Neurologic No mental status change 06/24/2013 Constitutional No fever 06/05/2013 Eyes No blindness 2012 Eyes No vision change Ears/Nose/Throat/Neck No dizziness 06/05/2013 Respiratory No chest congestion 06/05/2013 Respiratory No cough 04/2013 Respiratory No dyspnea 1 08/06/2012 Gastrointestinal abdominal pain 06/05/2013 Gastrointestinal No constipation 06/05/2013 Gastrointestinal No diarrhea 06/05/2013 Gastrointestinal No nausea 06/05/2013 Gastrointestinal No vomiting 06/05/2013 Musculoskeletal No stiffness 06/05/2013 Musculoskeletal No arthralgia(s) 06/05/2013 Dermatologic No rash 04/2013 Neurologic No alteration of consciousness 06/05/2013 Neurologic No mental status change 06/05/2013 Gastrointestinal gas and bloating 06/05/2013 Gastrointestinal gastroesophageal reflux 06/05/2013 Constitutional No fever 04/01/2013 Ears/Nose/Throat/Neck No dizziness 04/01/2013 Respiratory No chest congestion 04/01/2013 Respiratory No cough 12/2012 Respiratory No dyspnea 1 Gastrointestinal No abdominal pain 04/01/2013 Gastrointestinal No constipation 04/01/2013 Gastrointestinal No diarrhea 04/01/2013 Gastrointestinal No nausea 04/01/2013 Gastrointestinal No vomiting 04/01/2013 Musculoskeletal No stiffness 04/01/2013 Musculoskeletal No arthralgia(s) 04/01/2013 Dermatologic No rash 12/2012 Neurologic No alteration of consciousness 04/01/2013 Neurologic No mental status change 04/01/2013 Eyes No blindness 2012 Eyes No vision change Constitutional No fever 01/29/2013 Ears/Nose/Throat/Neck No dizziness 01/29/2013 Respiratory No chest congestion 01/29/2013 Respiratory No cough 11/2012 Respiratory No dyspnea 0 01/29/2013 Gastrointestinal No abdominal pain 01/29/2013 Gastrointestinal No constipation 01/29/2013 Gastrointestinal No diarrhea 01/29/2013 Gastrointestinal No nausea 01/29/2013 Gastrointestinal No vomiting 01/29/2013 Musculoskeletal No stiffness 01/29/2013 Musculoskeletal No arthralgia(s) 01/29/2013 Dermatologic No rash 11/2012 Neurologic No alteration of consciousness 01/29/2013 Neurologic No mental status change 01/29/2013 Constitutional No fever 12/25/2012 Ears/Nose/Throat/Neck No dizziness 12/25/2012 Respiratory No chest congestion 12/25/2012 Respiratory No cough 07/2012 Respiratory No dyspnea 0 12/25/2012 Gastrointestinal No abdominal pain 12/25/2012 Gastrointestinal No constipation 12/25/2012 Gastrointestinal No diarrhea 12/25/2012 Gastrointestinal No nausea 12/25/2012 Gastrointestinal No vomiting 12/25/2012 Musculoskeletal No stiffness 12/25/2012 Musculoskeletal No arthralgia(s) 12/25/2012 Dermatologic No rash 07/2012 Neurologic No alteration of consciousness 12/25/2012 Neurologic No mental status change 12/25/2012 Constitutional No fever 10/01/2012 Ears/Nose/Throat/Neck No dizziness 10/01/2012 Respiratory No chest congestion 10/01/2012 Respiratory No cough 01/2013 Respiratory No dyspnea 0 10/01/2012 Gastrointestinal No abdominal pain 10/01/2012 Gastrointestinal No constipation 10/01/2012 Gastrointestinal No diarrhea 10/01/2012 Gastrointestinal No nausea 10/01/2012 Gastrointestinal No vomiting 10/01/2012 Dermatologic No rash 01/2013 Neurologic No alteration of consciousness 10/01/2012 Neurologic No mental status change 10/01/2012 Musculoskeletal No arthralgia(s) 10/01/2012 Musculoskeletal No stiffness 10/01/2012 Gastrointestinal No abdominal pain 06/29/2012 Gastrointestinal No constipation 06/29/2012 Gastrointestinal No diarrhea 06/29/2012 Gastrointestinal No nausea 06/29/2012 Gastrointestinal No vomiting 06/29/2012 Genitourinary/Nephrology No dysuria 06/29/2012 Cardiovascular No chest pain/pressure 06/29/2012 Ears/Nose/Throat/Neck No dizziness 06/29/2012 Ears/Nose/Throat/Neck No headache 06/29/2012 Ears/Nose/Throat/Neck nasal allergies 06/29/2012 Ears/Nose/Throat/Neck nasal discharge 06/29/2012 Ears/Nose/Throat/Neck sinus congestion 06/29/2012 Ears/Nose/Throat/Neck sore throat 06/29/2012 Ears/Nose/Throat/Neck No otalgia 06/29/2012 Eyes No eye discharge Eyes No eye erythema 09/2012 Constitutional No fatigue 06/29/2012 Constitutional recent illness 06/29/2012 Constitutional No night sweats 06/29/2012 Constitutional No anorexia 06/29/2012 Constitutional chills Constitutional diaphoresis 06/29/2012 Constitutional fever 09/2012 Musculoskeletal No joint complaint 06/29/2012 Dermatologic No sores Dermatologic No rash 09/2012 Constitutional recent illness 05/28/2012 Constitutional No chills 05/28/2012 Constitutional No fatigue 05/28/2012 Constitutional fever 08/2011 Constitutional No insomnia 05/28/2012 Constitutional No malaise 05/28/2012 Cardiovascular No chest pain/pressure 05/28/2012 Cardiovascular No dyspnea 05/28/2012 Cardiovascular No edema 05/28/2012 Cardiovascular No exercise intolerance 05/28/2012 Cardiovascular No fatigue 05/28/2012 Cardiovascular No near-syncope/dizziness 05/28/2012 Gastrointestinal No hemorrhoids 05/28/2012 Gastrointestinal No abdominal pain 05/28/2012 Gastrointestinal No constipation 05/28/2012 Gastrointestinal No diarrhea 05/28/2012 Gastrointestinal No gastroesophageal reflu x 05/28/2012 Gastrointestinal No melena 05/28/2012 Gastrointestinal No nausea 05/28/2012 Gastrointestinal No vomiting 05/28/2012 Genitourinary/Nephrology No dysuria 05/28/2012 Genitourinary/Nephrology No nocturia 05/28/2012 Genitourinary/Nephrology No urinary incontinence 05/28/2012 Dermatologic No rash 08/2011 Dermatologic No scar 08/2011 Cardiovascular No syncope 04/02/2012 Constitutional No fever 04/02/2012 Dermatologic No rash 01/2012 Gastrointestinal No abdominal pain 04/02/2012 Neurologic No alteration of consciousness 04/02/2012 Neurologic No mental status change 04/02/2012 Respiratory No chest congestion 04/02/2012 Respiratory No cough 01/2012 Eyes cataract 04/02/2012 Ears/Nose/Throat/Neck No dizziness 04/02/2012 Cardiovascular No chest pain/pressure 04/02/2012 Respiratory No dyspnea 1 Gastrointestinal No constipation 04/02/2012 Gastrointestinal No diarrhea 04/02/2012 Gastrointestinal No nausea 04/02/2012 Gastrointestinal No vomiting 04/02/2012 Constitutional recent illness 01/24/2012 Constitutional No anorexia 01/24/2012 Constitutional No night sweats 01/24/2012 Constitutional No chills 01/24/2012 Constitutional No diaphoresis 01/24/2012 Constitutional No insomnia 01/24/2012 Constitutional No fever 01/24/2012 Constitutional fatigue 0 01/24/2012 Eyes No eye discharge Eyes No eye erythema Cardiovascular No chest pain/pressure 01/24/2012 Gastrointestinal No vomiting 01/24/2012 Gastrointestinal No nausea 01/24/2012 Gastrointestinal No abdominal pain 01/24/2012 Gastrointestinal No constipation 01/24/2012 Gastrointestinal No diarrhea 01/24/2012 Genitourinary/Nephrology No dysuria 01/24/2012 Musculoskeletal No joint complaint 01/24/2012 Dermatologic No rash Dermatologic No sores Constitutional No fever 10/03/2011 Eyes cataract 10/03/2011 Ears/Nose/Throat/Neck No dizziness 10/03/2011 Cardiovascular No chest pain/pressure 10/03/2011 Respiratory No dyspnea 0 10/03/2011 Gastrointestinal No vomiting 10/03/2011 Gastrointestinal No nausea 10/03/2011 Gastrointestinal No diarrhea 10/03/2011 Gastrointestinal No constipation 10/03/2011 Cardiovascular No syncope 10/03/2011 Respiratory No chest congestion 10/03/2011 Respiratory No cough 02/2012 Gastrointestinal No abdominal pain 10/03/2011 Dermatologic No rash 02/2012 Neurologic No alteration of consciousness 10/03/2011 Neurologic No mental status change 10/03/2011 Constitutional No fever 05/30/2011 Constitutional No chills 05/30/2011 Constitutional No fatigue 05/30/2011 Cardiovascular No chest pain/pressure 05/30/2011 Gastrointestinal No nausea 05/30/2011 Gastrointestinal No vomiting 05/30/2011 Dermatologic No rash 10/2010 Dermatologic No sores Musculoskeletal No stiffness 05/30/2011 Musculoskeletal No arthralgia(s) 05/30/2011 System Result Effective Dates Constitutional fatigue 0 09/11/2018 Constitutional No fever 09/11/2018 Constitutional No insomnia 09/11/2018 Eyes No blindness 2018 Eyes No vision change Ears/Nose/Throat/Neck No dizziness 09/11/2018 Cardiovascular No chest pain/pressure 09/11/2018 Cardiovascular fatigue 0 09/11/2018 Cardiovascular hypertension 09/11/2018 Respiratory No chest congestion 09/11/2018 Respiratory No cough Gastrointestinal No abdominal pain 09/11/2018 Gastrointestinal No constipation 09/11/2018 Gastrointestinal No diarrhea 09/11/2018 Gastrointestinal No nausea 09/11/2018 Gastrointestinal No vomiting 09/11/2018 Genitourinary/Nephrology No dysuria 09/11/2018 Musculoskeletal No stiffness 09/11/2018 Musculoskeletal No arthralgia(s) 09/11/2018 Dermatologic No rash Neurologic No alteration of consciousness 09/11/2018 Neurologic No mental status change 09/11/2018 Psychiatric No anxiety 0 09/11/2018 Psychiatric No depression 09/11/2018 Endocrine diabetes mellitus type 2 09/11/2018 Musculoskeletal joint complaint 09/11/2018 Constitutional fatigue 1 08/05/2017 Constitutional No fever 06/04/2018 Constitutional No insomnia 06/04/2018 Eyes No blindness 2017 Eyes No vision change Ears/Nose/Throat/Neck No dizziness 06/04/2018 Cardiovascular No chest pain/pressure 06/04/2018 Cardiovascular fatigue 1 08/05/2017 Cardiovascular hypertension 06/04/2018 Respiratory No chest congestion 06/04/2018 Respiratory cough 2017 Gastrointestinal No abdominal pain 06/04/2018 Gastrointestinal No constipation 06/04/2018 Gastrointestinal No diarrhea 06/04/2018 Gastrointestinal No nausea 06/04/2018 Gastrointestinal No vomiting 06/04/2018 Genitourinary/Nephrology No dysuria 06/04/2018 Genitourinary/Nephrology urinary inc ontinence 06/04/2018 Musculoskeletal No stiffness 06/04/2018 Musculoskeletal No arthralgia(s) 06/04/2018 Musculoskeletal back pain 06/04/2018 Musculoskeletal joint complaint 06/04/2018 Dermatologic No rash 03/2018 Neurologic No alteration of consciousness 06/04/2018 Neurologic No mental status change 06/04/2018 Psychiatric No anxiety 1 08/05/2017 Psychiatric No depression 06/04/2018 Endocrine diabetes mellitus type 2 06/04/2018 Constitutional recent illness 03/27/2018 Constitutional No anorexia 03/27/2018 Constitutional No night sweats 03/27/2018 Constitutional No chills 03/27/2018 Constitutional No diaphoresis 03/27/2018 Constitutional fatigue 1 Constitutional No fever 03/27/2018 Constitutional No insomnia 03/27/2018 Constitutional No malaise 03/27/2018 Constitutional No weight loss 03/27/2018 Constitutional No weight gain 03/27/2018 Eyes No eye discharge Eyes No eye erythema 07/2017 Ears/Nose/Throat/Neck No dizziness 03/27/2018 Ears/Nose/Throat/Neck No headache 03/27/2018 Ears/Nose/Throat/Neck nasal allergies 03/27/2018 Ears/Nose/Throat/Neck nasal discharge 03/27/2018 Ears/Nose/Throat/Neck sinus congestion 03/27/2018 Ears/Nose/Throat/Neck No sore throat 03/27/2018 Cardiovascular No chest pain/pressure 03/27/2018 Cardiovascular No dyspnea 03/27/2018 Cardiovascular No edema 03/27/2018 Respiratory productive sputum 03/27/2018 Respiratory cough 2017 Gastrointestinal No abdominal pain 03/27/2018 Gastrointestinal No constipation 03/27/2018 Gastrointestinal No diarrhea 03/27/2018 Genitourinary/Nephrology No dysuria 03/27/2018 Musculoskeletal No joint complaint 03/27/2018 Dermatologic No rash 07/2017 Neurologic No alteration of consciousness 03/27/2018 Psychiatric No anxiety 1 Endocrine No dry or coarse skin 03/27/2018 Constitutional fatigue 0 03/19/2018 Constitutional No fever 03/19/2018 Constitutional No insomnia 03/19/2018 Eyes No blindness 2017 Eyes No vision change Ears/Nose/Throat/Neck No dizziness 03/19/2018 Cardiovascular No chest pain/pressure 03/19/2018 Cardiovascular fatigue 0 03/19/2018 Cardiovascular hypertension 03/19/2018 Respiratory No chest congestion 03/19/2018 Respiratory No cough Gastrointestinal No abdominal pain 03/19/2018 Gastrointestinal No constipation 03/19/2018 Gastrointestinal No diarrhea 03/19/2018 Gastrointestinal No nausea 03/19/2018 Gastrointestinal No vomiting 03/19/2018 Genitourinary/Nephrology No dysuria 03/19/2018 Genitourinary/Nephrology urinary inc ontinence 03/19/2018 Musculoskeletal No stiffness 03/19/2018 Musculoskeletal No arthralgia(s) 03/19/2018 Musculoskeletal back pain 03/19/2018 Dermatologic No rash Neurologic No alteration of consciousness 03/19/2018 Neurologic No mental status change 03/19/2018 Psychiatric No anxiety 0 03/19/2018 Psychiatric No depression 03/19/2018 Endocrine diabetes mellitus type 2 03/19/2018 Musculoskeletal joint complaint 03/19/2018 Constitutional No recent illness 01/30/2018 Constitutional fatigue 0 01/30/2018 Constitutional No fever 01/30/2018 Constitutional No insomnia 01/30/2018 Eyes No blindness 2017 Eyes No vision change Ears/Nose/Throat/Neck No dizziness 01/30/2018 Cardiovascular No chest pain/pressure 01/30/2018 Cardiovascular fatigue 0 01/30/2018 Cardiovascular hypertension 01/30/2018 Respiratory No chest congestion 01/30/2018 Respiratory No cough 12/2017 Gastrointestinal No abdominal pain 01/30/2018 Gastrointestinal No constipation 01/30/2018 Gastrointestinal No diarrhea 01/30/2018 Gastrointestinal No nausea 01/30/2018 Gastrointestinal No vomiting 01/30/2018 Musculoskeletal No stiffness 01/30/2018 Musculoskeletal arthralgia(s) 01/30/2018 Musculoskeletal muscle weakness 01/30/2018 Musculoskeletal myalgias 01/30/2018 Dermatologic No rash 12/2017 Neurologic No alteration of consciousness 01/30/2018 Neurologic No mental status change 01/30/2018 Psychiatric No anxiety 0 01/30/2018 Psychiatric No depression 01/30/2018 Constitutional No recent illness 12/26/2017 Constitutional No fever 12/26/2017 Constitutional No insomnia 12/26/2017 Eyes No blindness 2017 Eyes No vision change Ears/Nose/Throat/Neck No dizziness 12/26/2017 Cardiovascular No chest pain/pressure 12/26/2017 Cardiovascular fatigue 0 12/26/2017 Cardiovascular hypertension 12/26/2017 Respiratory No chest congestion 12/26/2017 Respiratory No cough 08/2017 Gastrointestinal No abdominal pain 12/26/2017 Gastrointestinal No constipation 12/26/2017 Gastrointestinal No diarrhea 12/26/2017 Gastrointestinal No nausea 12/26/2017 Gastrointestinal No vomiting 12/26/2017 Musculoskeletal No stiffness 12/26/2017 Musculoskeletal No arthralgia(s) 12/26/2017 Dermatologic No rash 08/2017 Neurologic No alteration of consciousness 12/26/2017 Neurologic No mental status change 12/26/2017 Psychiatric No anxiety 0 12/26/2017 Psychiatric No depression 12/26/2017 Constitutional fatigue 0 12/26/2017 Musculoskeletal myalgias 12/26/2017 Musculoskeletal muscle weakness 12/26/2017 Genitourinary/Nephrology urinary frequency 12/26/2017 Constitutional No recent illness 11/21/2017 Constitutional No chills 11/21/2017 Constitutional No diaphoresis 11/21/2017 Constitutional No fever 11/21/2017 Eyes No eye erythema Ears/Nose/Throat/Neck No nasal discharge 11/21/2017 Ears/Nose/Throat/Neck No nasal allergies 11/21/2017 Cardiovascular No chest pain/pressure 11/21/2017 Cardiovascular No dyspnea 11/21/2017 Cardiovascular No palpitations 11/21/2017 Respiratory No cough Respiratory No chest congestion 11/21/2017 Gastrointestinal No abdominal pain 11/21/2017 Dermatologic No rash Neurologic No alteration of consciousness 11/21/2017 Neurologic No mental status change 11/21/2017 Constitutional fatigue 0 10/19/2017 Constitutional No fever 10/19/2017 Constitutional No insomnia 10/19/2017 Eyes No blindness 2017 Eyes No vision change Ears/Nose/Throat/Neck No dizziness 10/19/2017 Cardiovascular No chest pain/pressure 10/19/2017 Cardiovascular fatigue 0 10/19/2017 Cardiovascular hypertension 10/19/2017 Respiratory No chest congestion 10/19/2017 Respiratory No cough Gastrointestinal No abdominal pain 10/19/2017 Gastrointestinal No constipation 10/19/2017 Gastrointestinal No diarrhea 10/19/2017 Gastrointestinal No nausea 10/19/2017 Gastrointestinal No vomiting 10/19/2017 Musculoskeletal No stiffness 10/19/2017 Musculoskeletal No arthralgia(s) 10/19/2017 Musculoskeletal back pain 10/19/2017 Dermatologic No rash Neurologic No alteration of consciousness 10/19/2017 Neurologic No mental status change 10/19/2017 Psychiatric No anxiety 0 10/19/2017 Psychiatric No depression 10/19/2017 Endocrine diabetes mellitus type 2 10/19/2017 Gastrointestinal gastroesophageal reflux 10/19/2017 Genitourinary/Nephrology No dysuria 10/19/2017 Genitourinary/Nephrology urinary inc ontinence 10/19/2017 Constitutional fatigue 0 09/18/2017 Constitutional No fever 09/18/2017 Constitutional No insomnia 09/18/2017 Eyes No blindness 2017 Eyes No vision change Ears/Nose/Throat/Neck No dizziness 09/18/2017 Cardiovascular No chest pain/pressure 09/18/2017 Cardiovascular fatigue 0 09/18/2017 Cardiovascular hypertension 09/18/2017 Respiratory No chest congestion 09/18/2017 Respiratory No cough Gastrointestinal No abdominal pain 09/18/2017 Gastrointestinal No constipation 09/18/2017 Gastrointestinal No diarrhea 09/18/2017 Gastrointestinal No nausea 09/18/2017 Gastrointestinal No vomiting 09/18/2017 Genitourinary/Nephrology urinary frequency 09/18/2017 Musculoskeletal No stiffness 09/18/2017 Musculoskeletal No arthralgia(s) 09/18/2017 Musculoskeletal back pain 09/18/2017 Dermatologic No rash Neurologic No alteration of consciousness 09/18/2017 Neurologic No mental status change 09/18/2017 Psychiatric No anxiety 0 09/18/2017 Psychiatric No depression 09/18/2017 Endocrine diabetes mellitus type 2 09/18/2017 Constitutional No fever 07/21/2017 Eyes cataract 07/21/2017 Ears/Nose/Throat/Neck No dizziness 07/21/2017 Cardiovascular No chest pain/pressure 07/21/2017 Cardiovascular No syncope 07/21/2017 Respiratory No chest congestion 07/21/2017 Respiratory No cough Respiratory No dyspnea 0 07/21/2017 Gastrointestinal No abdominal pain 07/21/2017 Gastrointestinal No constipation 07/21/2017 Gastrointestinal No diarrhea 07/21/2017 Gastrointestinal No nausea 07/21/2017 Gastrointestinal No vomiting 07/21/2017 Musculoskeletal No stiffness 07/21/2017 Musculoskeletal No swelling 07/21/2017 Musculoskeletal No muscle weakness 07/21/2017 Musculoskeletal No myalgias 07/21/2017 Dermatologic No rash Neurologic No alteration of consciousness 07/21/2017 Neurologic No mental status change 07/21/2017 Psychiatric No anxiety 0 07/21/2017 Constitutional recent illness 07/21/2017 Constitutional No fever 05/04/2017 Eyes cataract 05/04/2017 Ears/Nose/Throat/Neck No dizziness 05/04/2017 Cardiovascular No chest pain/pressure 05/04/2017 Cardiovascular No syncope 05/04/2017 Respiratory No chest congestion 05/04/2017 Respiratory No cough 02/2017 Respiratory No dyspnea 1 07/04/2016 Gastrointestinal No abdominal pain 05/04/2017 Gastrointestinal No constipation 05/04/2017 Gastrointestinal No diarrhea 05/04/2017 Gastrointestinal No nausea 05/04/2017 Gastrointestinal No vomiting 05/04/2017 Dermatologic No rash 02/2017 Neurologic No alteration of consciousness 05/04/2017 Neurologic No mental status change 05/04/2017 Musculoskeletal No stiffness 05/04/2017 Musculoskeletal No swelling 05/04/2017 Musculoskeletal No muscle weakness 05/04/2017 Musculoskeletal No myalgias 05/04/2017 Psychiatric No anxiety 1 07/04/2016 Constitutional recent illness 03/30/2017 Constitutional fatigue 1 Constitutional malaise 1 Cardiovascular exercise intolerance 03/30/2017 Cardiovascular fatigue 1 Respiratory No chest congestion 03/30/2017 Respiratory No chest tightness 03/30/2017 Gastrointestinal No abdominal pain 03/30/2017 Psychiatric No anxiety 1 Psychiatric No depression 03/30/2017 Musculoskeletal stiffness 03/30/2017 Constitutional No fever 03/30/2017 Constitutional No insomnia 03/30/2017 Ears/Nose/Throat/Neck dizziness 03/30/2017 Cardiovascular No chest pain/pressure 03/30/2017 Cardiovascular hypertension 03/30/2017 Respiratory No cough 10/2016 Gastrointestinal No constipation 03/30/2017 Gastrointestinal No diarrhea 03/30/2017 Gastrointestinal No nausea 03/30/2017 Gastrointestinal No vomiting 03/30/2017 Genitourinary/Nephrology urinary frequency 03/30/2017 Musculoskeletal arthralgia(s) 03/30/2017 Musculoskeletal back pain 03/30/2017 Musculoskeletal muscle weakness 03/30/2017 Constitutional No fever 03/02/2017 Constitutional No insomnia 03/02/2017 Eyes No blindness 2016 Eyes No vision change Ears/Nose/Throat/Neck No dizziness 03/02/2017 Cardiovascular No chest pain/pressure 03/02/2017 Cardiovascular fatigue 0 03/02/2017 Cardiovascular hypertension 03/02/2017 Respiratory No chest congestion 03/02/2017 Respiratory No cough 12/2016 Gastrointestinal No abdominal pain 03/02/2017 Gastrointestinal No constipation 03/02/2017 Gastrointestinal No diarrhea 03/02/2017 Gastrointestinal No nausea 03/02/2017 Gastrointestinal No vomiting 03/02/2017 Genitourinary/Nephrology urinary frequency 03/02/2017 Musculoskeletal No stiffness 03/02/2017 Musculoskeletal No arthralgia(s) 03/02/2017 Musculoskeletal back pain 03/02/2017 Dermatologic No rash 12/2016 Neurologic No alteration of consciousness 03/02/2017 Neurologic No mental status change 03/02/2017 Psychiatric No anxiety 0 03/02/2017 Psychiatric No depression 03/02/2017 Constitutional No recent illness 03/02/2017 Constitutional fatigue 0 03/02/2017 Constitutional fatigue 0 01/31/2017 Constitutional No fever 01/31/2017 Constitutional No insomnia 01/31/2017 Eyes No blindness 2016 Eyes No vision change Ears/Nose/Throat/Neck dizziness 01/31/2017 Cardiovascular No chest pain/pressure 01/31/2017 Cardiovascular fatigue 0 01/31/2017 Cardiovascular hypertension 01/31/2017 Respiratory No chest congestion 01/31/2017 Respiratory No cough 01/2017 Gastrointestinal No abdominal pain 01/31/2017 Gastrointestinal No constipation 01/31/2017 Gastrointestinal No diarrhea 01/31/2017 Gastrointestinal No nausea 01/31/2017 Gastrointestinal No vomiting 01/31/2017 Genitourinary/Nephrology urinary frequency 01/31/2017 Musculoskeletal stiffness 01/31/2017 Musculoskeletal arthralgia(s) 01/31/2017 Musculoskeletal back pain 01/31/2017 Dermatologic No rash 01/2017 Neurologic No alteration of consciousness 01/31/2017 Neurologic No mental status change 01/31/2017 Psychiatric No anxiety 0 01/31/2017 Psychiatric No depression 01/31/2017 Musculoskeletal muscle weakness 01/31/2017 Constitutional fatigue 0 10/25/2016 Constitutional No fever 10/25/2016 Constitutional No insomnia 10/25/2016 Eyes No blindness 2016 Eyes No vision change Ears/Nose/Throat/Neck No dizziness 10/25/2016 Cardiovascular No chest pain/pressure 10/25/2016 Cardiovascular fatigue 0 10/25/2016 Cardiovascular hypertension 10/25/2016 Respiratory No chest congestion 10/25/2016 Respiratory No cough 07/2016 Gastrointestinal No abdominal pain 10/25/2016 Gastrointestinal No constipation 10/25/2016 Gastrointestinal No diarrhea 10/25/2016 Gastrointestinal No nausea 10/25/2016 Gastrointestinal No vomiting 10/25/2016 Genitourinary/Nephrology urinary frequency 10/25/2016 Musculoskeletal No stiffness 10/25/2016 Musculoskeletal No arthralgia(s) 10/25/2016 Musculoskeletal back pain 10/25/2016 Dermatologic No rash 07/2016 Neurologic No alteration of consciousness 10/25/2016 Neurologic No mental status change 10/25/2016 Psychiatric No anxiety 0 10/25/2016 Psychiatric No depression 10/25/2016 Constitutional fatigue 0 07/27/2016 Constitutional No fever 07/27/2016 Constitutional No insomnia 07/27/2016 Eyes No blindness 2016 Eyes No vision change Ears/Nose/Throat/Neck No dizziness 07/27/2016 Cardiovascular No chest pain/pressure 07/27/2016 Cardiovascular fatigue 0 07/27/2016 Cardiovascular hypertension 07/27/2016 Respiratory No chest congestion 07/27/2016 Respiratory No cough 06/2016 Gastrointestinal No abdominal pain 07/27/2016 Gastrointestinal No constipation 07/27/2016 Gastrointestinal No diarrhea 07/27/2016 Gastrointestinal No nausea 07/27/2016 Gastrointestinal No vomiting 07/27/2016 Genitourinary/Nephrology urinary frequency 07/27/2016 Musculoskeletal No stiffness 07/27/2016 Musculoskeletal No arthralgia(s) 07/27/2016 Musculoskeletal back pain 07/27/2016 Dermatologic No rash 06/2016 Neurologic No alteration of consciousness 07/27/2016 Neurologic No mental status change 07/27/2016 Psychiatric No anxiety 0 07/27/2016 Psychiatric No depression 07/27/2016 Constitutional fatigue 1 07/27/2015 Constitutional No fever 05/26/2016 Constitutional No insomnia 05/26/2016 Eyes No blindness 2015 Eyes No vision change Ears/Nose/Throat/Neck No dizziness 05/26/2016 Cardiovascular No chest pain/pressure 05/26/2016 Cardiovascular fatigue 1 07/27/2015 Cardiovascular hypertension 05/26/2016 Respiratory No chest congestion 05/26/2016 Respiratory No cough 06/2015 Gastrointestinal No abdominal pain 05/26/2016 Gastrointestinal No constipation 05/26/2016 Gastrointestinal No diarrhea 05/26/2016 Gastrointestinal No nausea 05/26/2016 Gastrointestinal No vomiting 05/26/2016 Genitourinary/Nephrology urinary frequency 05/26/2016 Musculoskeletal No stiffness 05/26/2016 Musculoskeletal No arthralgia(s) 05/26/2016 Musculoskeletal back pain 05/26/2016 Dermatologic No rash 06/2015 Neurologic No alteration of consciousness 05/26/2016 Neurologic No mental status change 05/26/2016 Psychiatric No anxiety 1 07/27/2015 Psychiatric No depression 05/26/2016 Constitutional fatigue 1 07/12/2015 Constitutional No fever 05/12/2016 Constitutional No insomnia 05/12/2016 Eyes No blindness 2015 Eyes No vision change Ears/Nose/Throat/Neck No dizziness 05/12/2016 Cardiovascular No chest pain/pressure 05/12/2016 Cardiovascular fatigue 1 07/12/2015 Cardiovascular hypertension 05/12/2016 Respiratory No chest congestion 05/12/2016 Respiratory No cough Gastrointestinal No abdominal pain 05/12/2016 Gastrointestinal No constipation 05/12/2016 Gastrointestinal No diarrhea 05/12/2016 Gastrointestinal No nausea 05/12/2016 Gastrointestinal No vomiting 05/12/2016 Genitourinary/Nephrology urinary frequency 05/12/2016 Musculoskeletal No stiffness 05/12/2016 Musculoskeletal No arthralgia(s) 05/12/2016 Musculoskeletal back pain 05/12/2016 Dermatologic No rash Neurologic No alteration of consciousness 05/12/2016 Neurologic No mental status change 05/12/2016 Psychiatric No anxiety 1 07/12/2015 Psychiatric No depression 05/12/2016 Constitutional fatigue 0 02/23/2016 Constitutional No fever 02/23/2016 Constitutional No insomnia 02/23/2016 Eyes No blindness 2015 Eyes No vision change Ears/Nose/Throat/Neck No dizziness 02/23/2016 Cardiovascular No chest pain/pressure 02/23/2016 Cardiovascular fatigue 0 02/23/2016 Cardiovascular hypertension 02/23/2016 Respiratory No chest congestion 02/23/2016 Respiratory No cough Gastrointestinal No abdominal pain 02/23/2016 Gastrointestinal No constipation 02/23/2016 Gastrointestinal No diarrhea 02/23/2016 Gastrointestinal No nausea 02/23/2016 Gastrointestinal No vomiting 02/23/2016 Genitourinary/Nephrology urinary frequency 02/23/2016 Musculoskeletal No stiffness 02/23/2016 Musculoskeletal No arthralgia(s) 02/23/2016 Musculoskeletal back pain 02/23/2016 Dermatologic No rash Neurologic No alteration of consciousness 02/23/2016 Neurologic No mental status change 02/23/2016 Psychiatric No anxiety 0 02/23/2016 Psychiatric No depression 02/23/2016 Constitutional fatigue 0 12/10/2015 Constitutional No fever 12/10/2015 Constitutional No insomnia 12/10/2015 Eyes No blindness 2015 Eyes No vision change Ears/Nose/Throat/Neck No dizziness 12/10/2015 Cardiovascular No chest pain/pressure 12/10/2015 Cardiovascular fatigue 0 12/10/2015 Cardiovascular hypertension 12/10/2015 Respiratory No chest congestion 12/10/2015 Respiratory No cough Gastrointestinal No abdominal pain 12/10/2015 Gastrointestinal No constipation 12/10/2015 Gastrointestinal No diarrhea 12/10/2015 Gastrointestinal No nausea 12/10/2015 Gastrointestinal No vomiting 12/10/2015 Genitourinary/Nephrology urinary frequency 12/10/2015 Musculoskeletal No stiffness 12/10/2015 Musculoskeletal No arthralgia(s) 12/10/2015 Musculoskeletal back pain 12/10/2015 Dermatologic No rash Neurologic No alteration of consciousness 12/10/2015 Neurologic No mental status change 12/10/2015 Psychiatric No anxiety 0 12/10/2015 Psychiatric No depression 12/10/2015 Constitutional fatigue 0 11/10/2015 Constitutional No fever 11/10/2015 Constitutional No insomnia 11/10/2015 Eyes No blindness 2015 Eyes No vision change Ears/Nose/Throat/Neck No dizziness 11/10/2015 Cardiovascular No chest pain/pressure 11/10/2015 Cardiovascular fatigue 0 11/10/2015 Cardiovascular hypertension 11/10/2015 Respiratory No chest congestion 11/10/2015 Respiratory No cough Gastrointestinal No abdominal pain 11/10/2015 Gastrointestinal No constipation 11/10/2015 Gastrointestinal No diarrhea 11/10/2015 Gastrointestinal No nausea 11/10/2015 Gastrointestinal No vomiting 11/10/2015 Genitourinary/Nephrology urinary frequency 11/10/2015 Musculoskeletal No stiffness 11/10/2015 Musculoskeletal No arthralgia(s) 11/10/2015 Musculoskeletal back pain 11/10/2015 Dermatologic No rash Neurologic No alteration of consciousness 11/10/2015 Neurologic No mental status change 11/10/2015 Psychiatric No anxiety 0 11/10/2015 Psychiatric No depression 11/10/2015 Constitutional fatigue 0 08/07/2015 Constitutional No fever 08/07/2015 Constitutional No insomnia 08/07/2015 Eyes No blindness 2015 Eyes No vision change Ears/Nose/Throat/Neck No dizziness 08/07/2015 Cardiovascular No chest pain/pressure 08/07/2015 Cardiovascular dyspnea 0 08/07/2015 Cardiovascular edema 05/2016 Cardiovascular fatigue 0 08/07/2015 Cardiovascular hypertension 08/07/2015 Respiratory No chest congestion 08/07/2015 Respiratory No cough 05/2016 Gastrointestinal No abdominal pain 08/07/2015 Gastrointestinal No constipation 08/07/2015 Gastrointestinal No diarrhea 08/07/2015 Gastrointestinal No nausea 08/07/2015 Gastrointestinal No vomiting 08/07/2015 Genitourinary/Nephrology urinary frequency 08/07/2015 Musculoskeletal No stiffness 08/07/2015 Musculoskeletal No arthralgia(s) 08/07/2015 Musculoskeletal back pain 08/07/2015 Dermatologic No rash 05/2016 Neurologic No alteration of consciousness 08/07/2015 Neurologic No mental status change 08/07/2015 Psychiatric No anxiety 0 08/07/2015 Psychiatric No depression 08/07/2015 Constitutional fatigue 0 07/07/2015 Constitutional No fever 07/07/2015 Constitutional No insomnia 07/07/2015 Eyes No blindness 2015 Eyes No vision change Ears/Nose/Throat/Neck No dizziness 07/07/2015 Cardiovascular No chest pain/pressure 07/07/2015 Cardiovascular dyspnea 0 07/07/2015 Cardiovascular edema 05/2016 Cardiovascular fatigue 0 07/07/2015 Cardiovascular hypertension 07/07/2015 Respiratory No chest congestion 07/07/2015 Respiratory No cough 05/2016 Gastrointestinal No abdominal pain 07/07/2015 Gastrointestinal No constipation 07/07/2015 Gastrointestinal No diarrhea 07/07/2015 Gastrointestinal No nausea 07/07/2015 Gastrointestinal No vomiting 07/07/2015 Genitourinary/Nephrology urinary frequency 07/07/2015 Musculoskeletal No stiffness 07/07/2015 Musculoskeletal No arthralgia(s) 07/07/2015 Dermatologic No rash 05/2016 Neurologic No alteration of consciousness 07/07/2015 Neurologic No mental status change 07/07/2015 Psychiatric No anxiety 0 07/07/2015 Psychiatric No depression 07/07/2015 Musculoskeletal back pain 07/07/2015 Constitutional No chills 04/02/2015 Constitutional No fever 04/02/2015 Constitutional fatigue 1 Eyes No eye discharge Ears/Nose/Throat/Neck No nasal allergies 04/02/2015 Constitutional No recent illness 04/02/2015 Cardiovascular No dyspnea 04/02/2015 Cardiovascular fatigue 1 Respiratory No chest congestion 04/02/2015 Respiratory No cough 01/2015 Gastrointestinal dyspepsia 04/02/2015 Gastrointestinal No constipation 04/02/2015 Gastrointestinal No diarrhea 04/02/2015 Gastrointestinal gastroesophageal reflux 04/02/2015 Dermatologic erythema Constitutional fatigue 0 12/23/2014 Constitutional No insomnia 12/23/2014 Ears/Nose/Throat/Neck postnasal drip 12/23/2014 Cardiovascular fatigue 0 12/23/2014 Respiratory No chest congestion 12/23/2014 Respiratory No cough Gastrointestinal No abdominal pain 12/23/2014 Gastrointestinal No constipation 12/23/2014 Gastrointestinal No diarrhea 12/23/2014 Genitourinary/Nephrology urinary frequency 12/23/2014 Constitutional No fever 12/23/2014 Eyes No blindness 2014 Eyes No vision change Ears/Nose/Throat/Neck No dizziness 12/23/2014 Cardiovascular No chest pain/pressure 12/23/2014 Cardiovascular dyspnea 0 12/23/2014 Cardiovascular edema Cardiovascular hypertension 12/23/2014 Gastrointestinal No nausea 12/23/2014 Gastrointestinal No vomiting 12/23/2014 Musculoskeletal No stiffness 12/23/2014 Musculoskeletal No arthralgia(s) 12/23/2014 Dermatologic No rash Neurologic No alteration of consciousness 12/23/2014 Neurologic No mental status change 12/23/2014 Psychiatric No anxiety 0 12/23/2014 Psychiatric No depression 12/23/2014 Constitutional fatigue 0 10/22/2014 Constitutional No insomnia 10/22/2014 Cardiovascular dyspnea 0 10/22/2014 Cardiovascular No chest pain/pressure 10/22/2014 Respiratory No chest congestion 10/22/2014 Respiratory No cough Gastrointestinal No constipation 10/22/2014 Gastrointestinal No diarrhea 10/22/2014 Gastrointestinal No abdominal pain 10/22/2014 Constitutional No fever 10/22/2014 Eyes No blindness 2014 Eyes No vision change Ears/Nose/Throat/Neck No dizziness 10/22/2014 Cardiovascular edema Cardiovascular hypertension 10/22/2014 Gastrointestinal No nausea 10/22/2014 Gastrointestinal No vomiting 10/22/2014 Musculoskeletal No stiffness 10/22/2014 Musculoskeletal No arthralgia(s) 10/22/2014 Dermatologic No rash Neurologic No alteration of consciousness 10/22/2014 Neurologic No mental status change 10/22/2014 Psychiatric No anxiety 0 10/22/2014 Psychiatric No depression 10/22/2014 Constitutional recent illness 09/26/2014 Constitutional No anorexia 09/26/2014 Constitutional No night sweats 09/26/2014 Constitutional chills Constitutional diaphoresis 09/26/2014 Constitutional fatigue 0 09/26/2014 Constitutional fever 08/2014 Constitutional No insomnia 09/26/2014 Constitutional No malaise 09/26/2014 Constitutional No weight loss 09/26/2014 Constitutional No weight gain 09/26/2014 Eyes No eye discharge Eyes No eye erythema 08/2014 Ears/Nose/Throat/Neck No dizziness 09/26/2014 Ears/Nose/Throat/Neck nasal allergies 09/26/2014 Ears/Nose/Throat/Neck nasal discharge 09/26/2014 Ears/Nose/Throat/Neck No otalgia 09/26/2014 Ears/Nose/Throat/Neck sinus congestion 09/26/2014 Ears/Nose/Throat/Neck No sore throat 09/26/2014 Respiratory productive sputum 09/26/2014 Respiratory cough 2014 Gastrointestinal No constipation 09/26/2014 Gastrointestinal No diarrhea 09/26/2014 Genitourinary/Nephrology No dysuria 09/26/2014 Cardiovascular No chest pain/pressure 09/26/2014 Musculoskeletal No joint complaint 09/26/2014 Dermatologic No rash 08/2014 Dermatologic No sores Neurologic No alteration of consciousness 09/26/2014 Constitutional No fever 07/01/2014 Eyes No blindness 2014 Eyes No vision change Ears/Nose/Throat/Neck No dizziness 07/01/2014 Cardiovascular edema 11/2014 Cardiovascular fatigue 0 07/01/2014 Cardiovascular hypertension 07/01/2014 Respiratory No chest congestion 07/01/2014 Respiratory No cough 11/2014 Respiratory No dyspnea 0 07/01/2014 Gastrointestinal No abdominal pain 07/01/2014 Gastrointestinal No constipation 07/01/2014 Gastrointestinal No diarrhea 07/01/2014 Gastrointestinal No nausea 07/01/2014 Gastrointestinal No vomiting 07/01/2014 Musculoskeletal No stiffness 07/01/2014 Musculoskeletal No arthralgia(s) 07/01/2014 Dermatologic No rash 11/2014 Neurologic No alteration of consciousness 07/01/2014 Neurologic No mental status change 07/01/2014 Psychiatric No anxiety 0 07/01/2014 Psychiatric No depression 07/01/2014 Constitutional No fever 06/09/2014 Eyes No blindness 2013 Eyes No vision change Ears/Nose/Throat/Neck No dizziness 06/09/2014 Cardiovascular edema Cardiovascular fatigue 1 08/10/2013 Cardiovascular hypertension 06/09/2014 Respiratory No chest congestion 06/09/2014 Respiratory No cough Respiratory No dyspnea 1 08/10/2013 Gastrointestinal No abdominal pain 06/09/2014 Gastrointestinal No constipation 06/09/2014 Gastrointestinal No diarrhea 06/09/2014 Gastrointestinal No nausea 06/09/2014 Gastrointestinal No vomiting 06/09/2014 Musculoskeletal No stiffness 06/09/2014 Musculoskeletal No arthralgia(s) 06/09/2014 Dermatologic No rash Neurologic No alteration of consciousness 06/09/2014 Neurologic No mental status change 06/09/2014 Psychiatric No anxiety 1 08/10/2013 Psychiatric No depression 06/09/2014 Constitutional No fever 05/07/2014 Eyes No blindness 2013 Eyes No vision change Ears/Nose/Throat/Neck No dizziness 05/07/2014 Respiratory No chest congestion 05/07/2014 Respiratory No cough 05/2014 Respiratory No dyspnea 1 07/07/2013 Gastrointestinal No abdominal pain 05/07/2014 Gastrointestinal No constipation 05/07/2014 Gastrointestinal No diarrhea 05/07/2014 Gastrointestinal No nausea 05/07/2014 Gastrointestinal No vomiting 05/07/2014 Musculoskeletal No stiffness 05/07/2014 Musculoskeletal No arthralgia(s) 05/07/2014 Dermatologic No rash 05/2014 Neurologic No alteration of consciousness 05/07/2014 Neurologic No mental status change 05/07/2014 Cardiovascular hypertension 05/07/2014 Cardiovascular fatigue 1 07/07/2013 Cardiovascular edema 05/2014 Psychiatric No anxiety 1 07/07/2013 Psychiatric No depression 05/07/2014 Eyes No blindness 2013 Eyes No vision change Respiratory No chest congestion 04/21/2014 Respiratory No cough Respiratory No dyspnea 1 Gastrointestinal No abdominal pain 04/21/2014 Gastrointestinal No constipation 04/21/2014 Gastrointestinal No diarrhea 04/21/2014 Gastrointestinal nausea 04/21/2014 Musculoskeletal No stiffness 04/21/2014 Musculoskeletal No arthralgia(s) 04/21/2014 Dermatologic No rash Neurologic No alteration of consciousness 04/21/2014 Neurologic No mental status change 04/21/2014 Constitutional recent illness 04/21/2014 Constitutional fatigue 1 Constitutional fever Constitutional malaise 1 Constitutional weight loss 04/21/2014 Constitutional chills Ears/Nose/Throat/Neck No headache 04/21/2014 Ears/Nose/Throat/Neck No facial weakness 04/21/2014 Ears/Nose/Throat/Neck dizziness 04/21/2014 Cardiovascular No chest pain/pressure 04/21/2014 Cardiovascular dyspnea 1 Cardiovascular edema Cardiovascular fatigue 1 Genitourinary/Nephrology dysuria 04/21/2014 Genitourinary/Nephrology urinary urgency 04/21/2014 Genitourinary/Nephrology urinary frequency 04/21/2014 Psychiatric No anxiety 1 Psychiatric No depression 04/21/2014 Constitutional recent illness 02/14/2014 Constitutional No chills 02/14/2014 Constitutional No fatigue 02/14/2014 Constitutional No fever 02/14/2014 Constitutional No insomnia 02/14/2014 Constitutional No malaise 02/14/2014 Cardiovascular No chest pain/pressure 02/14/2014 Cardiovascular No dyspnea 02/14/2014 Cardiovascular No edema 02/14/2014 Cardiovascular No exercise intolerance 02/14/2014 Cardiovascular No fatigue 02/14/2014 Cardiovascular No near-syncope/dizziness 02/14/2014 Respiratory No chest tightness 02/14/2014 Respiratory No cigarette smoking 02/14/2014 Respiratory No cough Respiratory No dyspnea 0 02/14/2014 Respiratory No pedal edema 02/14/2014 Respiratory No snoring 0 02/14/2014 Respiratory No wheezing 02/14/2014 Musculoskeletal No stiffness 02/14/2014 Musculoskeletal No swelling 02/14/2014 Musculoskeletal No muscle weakness 02/14/2014 Musculoskeletal No myalgias 02/14/2014 Genitourinary/Nephrology No dysuria 02/14/2014 Genitourinary/Nephrology No nocturia 02/14/2014 Genitourinary/Nephrology No urinary incontinence 02/14/2014 Eyes No blindness 2013 Eyes No vision change Ears/Nose/Throat/Neck No dizziness 02/14/2014 Respiratory No chest congestion 02/14/2014 Gastrointestinal No abdominal pain 02/14/2014 Gastrointestinal No constipation 02/14/2014 Gastrointestinal No diarrhea 02/14/2014 Gastrointestinal No nausea 02/14/2014 Gastrointestinal No vomiting 02/14/2014 Musculoskeletal No arthralgia(s) 02/14/2014 Neurologic No alteration of consciousness 02/14/2014 Neurologic No mental status change 02/14/2014 Constitutional No fever 11/14/2013 Eyes No blindness 2013 Eyes No vision change Ears/Nose/Throat/Neck No dizziness 11/14/2013 Respiratory No chest congestion 11/14/2013 Respiratory No cough Respiratory No dyspnea 0 11/14/2013 Gastrointestinal No abdominal pain 11/14/2013 Gastrointestinal No constipation 11/14/2013 Gastrointestinal No diarrhea 11/14/2013 Gastrointestinal No nausea 11/14/2013 Gastrointestinal No vomiting 11/14/2013 Musculoskeletal No stiffness 11/14/2013 Musculoskeletal No arthralgia(s) 11/14/2013 Dermatologic No rash Neurologic No alteration of consciousness 11/14/2013 Neurologic No mental status change 11/14/2013 Constitutional No fever 10/24/2013 Eyes No blindness 2013 Eyes No vision change Ears/Nose/Throat/Neck No dizziness 10/24/2013 Respiratory No chest congestion 10/24/2013 Respiratory No cough 06/2013 Respiratory No dyspnea 0 10/24/2013 Gastrointestinal No abdominal pain 10/24/2013 Gastrointestinal No constipation 10/24/2013 Gastrointestinal No diarrhea 10/24/2013 Gastrointestinal No nausea 10/24/2013 Gastrointestinal No vomiting 10/24/2013 Musculoskeletal No stiffness 10/24/2013 Musculoskeletal No arthralgia(s) 10/24/2013 Dermatologic No rash 06/2013 Neurologic No alteration of consciousness 10/24/2013 Neurologic No mental status change 10/24/2013 Constitutional No fever 06/24/2013 Eyes No blindness 2012 Eyes No vision change Ears/Nose/Throat/Neck No dizziness 06/24/2013 Respiratory No chest congestion 06/24/2013 Respiratory No cough Respiratory No dyspnea 1 Gastrointestinal abdominal pain 06/24/2013 Gastrointestinal No constipation 06/24/2013 Gastrointestinal No diarrhea 06/24/2013 Gastrointestinal gas and bloating 06/24/2013 Gastrointestinal gastroesophageal reflux 06/24/2013 Gastrointestinal No nausea 06/24/2013 Gastrointestinal No vomiting 06/24/2013 Musculoskeletal No stiffness 06/24/2013 Musculoskeletal No arthralgia(s) 06/24/2013 Dermatologic No rash Neurologic No alteration of consciousness 06/24/2013 Neurologic No mental status change 06/24/2013 Constitutional No fever 06/05/2013 Eyes No blindness 2012 Eyes No vision change Ears/Nose/Throat/Neck No dizziness 06/05/2013 Respiratory No chest congestion 06/05/2013 Respiratory No cough 04/2013 Respiratory No dyspnea 1 08/06/2012 Gastrointestinal abdominal pain 06/05/2013 Gastrointestinal No constipation 06/05/2013 Gastrointestinal No diarrhea 06/05/2013 Gastrointestinal No nausea 06/05/2013 Gastrointestinal No vomiting 06/05/2013 Musculoskeletal No stiffness 06/05/2013 Musculoskeletal No arthralgia(s) 06/05/2013 Dermatologic No rash 04/2013 Neurologic No alteration of consciousness 06/05/2013 Neurologic No mental status change 06/05/2013 Gastrointestinal gas and bloating 06/05/2013 Gastrointestinal gastroesophageal reflux 06/05/2013 Constitutional No fever 04/01/2013 Ears/Nose/Throat/Neck No dizziness 04/01/2013 Respiratory No chest congestion 04/01/2013 Respiratory No cough 12/2012 Respiratory No dyspnea 1 Gastrointestinal No abdominal pain 04/01/2013 Gastrointestinal No constipation 04/01/2013 Gastrointestinal No diarrhea 04/01/2013 Gastrointestinal No nausea 04/01/2013 Gastrointestinal No vomiting 04/01/2013 Musculoskeletal No stiffness 04/01/2013 Musculoskeletal No arthralgia(s) 04/01/2013 Dermatologic No rash 12/2012 Neurologic No alteration of consciousness 04/01/2013 Neurologic No mental status change 04/01/2013 Eyes No blindness 2012 Eyes No vision change Constitutional No fever 01/29/2013 Ears/Nose/Throat/Neck No dizziness 01/29/2013 Respiratory No chest congestion 01/29/2013 Respiratory No cough 11/2012 Respiratory No dyspnea 0 01/29/2013 Gastrointestinal No abdominal pain 01/29/2013 Gastrointestinal No constipation 01/29/2013 Gastrointestinal No diarrhea 01/29/2013 Gastrointestinal No nausea 01/29/2013 Gastrointestinal No vomiting 01/29/2013 Musculoskeletal No stiffness 01/29/2013 Musculoskeletal No arthralgia(s) 01/29/2013 Dermatologic No rash 11/2012 Neurologic No alteration of consciousness 01/29/2013 Neurologic No mental status change 01/29/2013 Constitutional No fever 12/25/2012 Ears/Nose/Throat/Neck No dizziness 12/25/2012 Respiratory No chest congestion 12/25/2012 Respiratory No cough 07/2012 Respiratory No dyspnea 0 12/25/2012 Gastrointestinal No abdominal pain 12/25/2012 Gastrointestinal No constipation 12/25/2012 Gastrointestinal No diarrhea 12/25/2012 Gastrointestinal No nausea 12/25/2012 Gastrointestinal No vomiting 12/25/2012 Musculoskeletal No stiffness 12/25/2012 Musculoskeletal No arthralgia(s) 12/25/2012 Dermatologic No rash 07/2012 Neurologic No alteration of consciousness 12/25/2012 Neurologic No mental status change 12/25/2012 Constitutional No fever 10/01/2012 Ears/Nose/Throat/Neck No dizziness 10/01/2012 Respiratory No chest congestion 10/01/2012 Respiratory No cough 01/2013 Respiratory No dyspnea 0 10/01/2012 Gastrointestinal No abdominal pain 10/01/2012 Gastrointestinal No constipation 10/01/2012 Gastrointestinal No diarrhea 10/01/2012 Gastrointestinal No nausea 10/01/2012 Gastrointestinal No vomiting 10/01/2012 Dermatologic No rash 01/2013 Neurologic No alteration of consciousness 10/01/2012 Neurologic No mental status change 10/01/2012 Musculoskeletal No arthralgia(s) 10/01/2012 Musculoskeletal No stiffness 10/01/2012 Gastrointestinal No abdominal pain 06/29/2012 Gastrointestinal No constipation 06/29/2012 Gastrointestinal No diarrhea 06/29/2012 Gastrointestinal No nausea 06/29/2012 Gastrointestinal No vomiting 06/29/2012 Genitourinary/Nephrology No dysuria 06/29/2012 Cardiovascular No chest pain/pressure 06/29/2012 Ears/Nose/Throat/Neck No dizziness 06/29/2012 Ears/Nose/Throat/Neck No headache 06/29/2012 Ears/Nose/Throat/Neck nasal allergies 06/29/2012 Ears/Nose/Throat/Neck nasal discharge 06/29/2012 Ears/Nose/Throat/Neck sinus congestion 06/29/2012 Ears/Nose/Throat/Neck sore throat 06/29/2012 Ears/Nose/Throat/Neck No otalgia 06/29/2012 Eyes No eye discharge Eyes No eye erythema 09/2012 Constitutional No fatigue 06/29/2012 Constitutional recent illness 06/29/2012 Constitutional No night sweats 06/29/2012 Constitutional No anorexia 06/29/2012 Constitutional chills Constitutional diaphoresis 06/29/2012 Constitutional fever 09/2012 Musculoskeletal No joint complaint 06/29/2012 Dermatologic No sores Dermatologic No rash 09/2012 Constitutional recent illness 05/28/2012 Constitutional No chills 05/28/2012 Constitutional No fatigue 05/28/2012 Constitutional fever 08/2011 Constitutional No insomnia 05/28/2012 Constitutional No malaise 05/28/2012 Cardiovascular No chest pain/pressure 05/28/2012 Cardiovascular No dyspnea 05/28/2012 Cardiovascular No edema 05/28/2012 Cardiovascular No exercise intolerance 05/28/2012 Cardiovascular No fatigue 05/28/2012 Cardiovascular No near-syncope/dizziness 05/28/2012 Gastrointestinal No hemorrhoids 05/28/2012 Gastrointestinal No abdominal pain 05/28/2012 Gastrointestinal No constipation 05/28/2012 Gastrointestinal No diarrhea 05/28/2012 Gastrointestinal No gastroesophageal reflu x 05/28/2012 Gastrointestinal No melena 05/28/2012 Gastrointestinal No nausea 05/28/2012 Gastrointestinal No vomiting 05/28/2012 Genitourinary/Nephrology No dysuria 05/28/2012 Genitourinary/Nephrology No nocturia 05/28/2012 Genitourinary/Nephrology No urinary incontinence 05/28/2012 Dermatologic No rash 08/2011 Dermatologic No scar 08/2011 Cardiovascular No syncope 04/02/2012 Constitutional No fever 04/02/2012 Dermatologic No rash 01/2012 Gastrointestinal No abdominal pain 04/02/2012 Neurologic No alteration of consciousness 04/02/2012 Neurologic No mental status change 04/02/2012 Respiratory No chest congestion 04/02/2012 Respiratory No cough 01/2012 Eyes cataract 04/02/2012 Ears/Nose/Throat/Neck No dizziness 04/02/2012 Cardiovascular No chest pain/pressure 04/02/2012 Respiratory No dyspnea 1 Gastrointestinal No constipation 04/02/2012 Gastrointestinal No diarrhea 04/02/2012 Gastrointestinal No nausea 04/02/2012 Gastrointestinal No vomiting 04/02/2012 Constitutional recent illness 01/24/2012 Constitutional No anorexia 01/24/2012 Constitutional No night sweats 01/24/2012 Constitutional No chills 01/24/2012 Constitutional No diaphoresis 01/24/2012 Constitutional No insomnia 01/24/2012 Constitutional No fever 01/24/2012 Constitutional fatigue 0 01/24/2012 Eyes No eye discharge Eyes No eye erythema Cardiovascular No chest pain/pressure 01/24/2012 Gastrointestinal No vomiting 01/24/2012 Gastrointestinal No nausea 01/24/2012 Gastrointestinal No abdominal pain 01/24/2012 Gastrointestinal No constipation 01/24/2012 Gastrointestinal No diarrhea 01/24/2012 Genitourinary/Nephrology No dysuria 01/24/2012 Musculoskeletal No joint complaint 01/24/2012 Dermatologic No rash Dermatologic No sores Constitutional No fever 10/03/2011 Eyes cataract 10/03/2011 Ears/Nose/Throat/Neck No dizziness 10/03/2011 Cardiovascular No chest pain/pressure 10/03/2011 Respiratory No dyspnea 0 10/03/2011 Gastrointestinal No vomiting 10/03/2011 Gastrointestinal No nausea 10/03/2011 Gastrointestinal No diarrhea 10/03/2011 Gastrointestinal No constipation 10/03/2011 Cardiovascular No syncope 10/03/2011 Respiratory No chest congestion 10/03/2011 Respiratory No cough 02/2012 Gastrointestinal No abdominal pain 10/03/2011 Dermatologic No rash 02/2012 Neurologic No alteration of consciousness 10/03/2011 Neurologic No mental status change 10/03/2011 Constitutional No fever 05/30/2011 Constitutional No chills 05/30/2011 Constitutional No fatigue 05/30/2011 Cardiovascular No chest pain/pressure 05/30/2011 Gastrointestinal No nausea 05/30/2011 Gastrointestinal No vomiting 05/30/2011 Dermatologic No rash 10/2010 Dermatologic No sores Musculoskeletal No stiffness 05/30/2011 Musculoskeletal No arthralgia(s) 05/30/2011 System Result Effective Dates Constitutional No recent illness 09/27/2018 Constitutional No anorexia 09/27/2018 Constitutional No night sweats 09/27/2018 Constitutional No chills 09/27/2018 Constitutional No diaphoresis 09/27/2018 Constitutional fatigue 0 09/27/2018 Constitutional No fever 09/27/2018 Constitutional No insomnia 09/27/2018 Constitutional No malaise 09/27/2018 Constitutional No weight loss 09/27/2018 Constitutional No weight gain 09/27/2018 Constitutional fatigue 0 09/11/2018 Constitutional No fever 09/11/2018 Constitutional No insomnia 09/11/2018 Eyes No blindness 2018 Eyes No vision change Ears/Nose/Throat/Neck No dizziness 09/11/2018 Cardiovascular No chest pain/pressure 09/11/2018 Cardiovascular fatigue 0 09/11/2018 Cardiovascular hypertension 09/11/2018 Respiratory No chest congestion 09/11/2018 Respiratory No cough Gastrointestinal No abdominal pain 09/11/2018 Gastrointestinal No constipation 09/11/2018 Gastrointestinal No diarrhea 09/11/2018 Gastrointestinal No nausea 09/11/2018 Gastrointestinal No vomiting 09/11/2018 Genitourinary/Nephrology No dysuria 09/11/2018 Musculoskeletal No stiffness 09/11/2018 Musculoskeletal No arthralgia(s) 09/11/2018 Dermatologic No rash Neurologic No alteration of consciousness 09/11/2018 Neurologic No mental status change 09/11/2018 Psychiatric No anxiety 0 09/11/2018 Psychiatric No depression 09/11/2018 Endocrine diabetes mellitus type 2 09/11/2018 Musculoskeletal joint complaint 09/11/2018 Constitutional fatigue 1 08/05/2017 Constitutional No fever 06/04/2018 Constitutional No insomnia 06/04/2018 Eyes No blindness 2017 Eyes No vision change Ears/Nose/Throat/Neck No dizziness 06/04/2018 Cardiovascular No chest pain/pressure 06/04/2018 Cardiovascular fatigue 1 08/05/2017 Cardiovascular hypertension 06/04/2018 Respiratory No chest congestion 06/04/2018 Respiratory cough 2017 Gastrointestinal No abdominal pain 06/04/2018 Gastrointestinal No constipation 06/04/2018 Gastrointestinal No diarrhea 06/04/2018 Gastrointestinal No nausea 06/04/2018 Gastrointestinal No vomiting 06/04/2018 Genitourinary/Nephrology No dysuria 06/04/2018 Genitourinary/Nephrology urinary inc ontinence 06/04/2018 Musculoskeletal No stiffness 06/04/2018 Musculoskeletal No arthralgia(s) 06/04/2018 Musculoskeletal back pain 06/04/2018 Musculoskeletal joint complaint 06/04/2018 Dermatologic No rash 03/2018 Neurologic No alteration of consciousness 06/04/2018 Neurologic No mental status change 06/04/2018 Psychiatric No anxiety 1 08/05/2017 Psychiatric No depression 06/04/2018 Endocrine diabetes mellitus type 2 06/04/2018 Constitutional recent illness 03/27/2018 Constitutional No anorexia 03/27/2018 Constitutional No night sweats 03/27/2018 Constitutional No chills 03/27/2018 Constitutional No diaphoresis 03/27/2018 Constitutional fatigue 1 Constitutional No fever 03/27/2018 Constitutional No insomnia 03/27/2018 Constitutional No malaise 03/27/2018 Constitutional No weight loss 03/27/2018 Constitutional No weight gain 03/27/2018 Eyes No eye discharge Eyes No eye erythema 07/2017 Ears/Nose/Throat/Neck No dizziness 03/27/2018 Ears/Nose/Throat/Neck No headache 03/27/2018 Ears/Nose/Throat/Neck nasal allergies 03/27/2018 Ears/Nose/Throat/Neck nasal discharge 03/27/2018 Ears/Nose/Throat/Neck sinus congestion 03/27/2018 Ears/Nose/Throat/Neck No sore throat 03/27/2018 Cardiovascular No chest pain/pressure 03/27/2018 Cardiovascular No dyspnea 03/27/2018 Cardiovascular No edema 03/27/2018 Respiratory productive sputum 03/27/2018 Respiratory cough 2017 Gastrointestinal No abdominal pain 03/27/2018 Gastrointestinal No constipation 03/27/2018 Gastrointestinal No diarrhea 03/27/2018 Genitourinary/Nephrology No dysuria 03/27/2018 Musculoskeletal No joint complaint 03/27/2018 Dermatologic No rash 07/2017 Neurologic No alteration of consciousness 03/27/2018 Psychiatric No anxiety 1 Endocrine No dry or coarse skin 03/27/2018 Constitutional fatigue 0 03/19/2018 Constitutional No fever 03/19/2018 Constitutional No insomnia 03/19/2018 Eyes No blindness 2017 Eyes No vision change Ears/Nose/Throat/Neck No dizziness 03/19/2018 Cardiovascular No chest pain/pressure 03/19/2018 Cardiovascular fatigue 0 03/19/2018 Cardiovascular hypertension 03/19/2018 Respiratory No chest congestion 03/19/2018 Respiratory No cough Gastrointestinal No abdominal pain 03/19/2018 Gastrointestinal No constipation 03/19/2018 Gastrointestinal No diarrhea 03/19/2018 Gastrointestinal No nausea 03/19/2018 Gastrointestinal No vomiting 03/19/2018 Genitourinary/Nephrology No dysuria 03/19/2018 Genitourinary/Nephrology urinary inc ontinence 03/19/2018 Musculoskeletal No stiffness 03/19/2018 Musculoskeletal No arthralgia(s) 03/19/2018 Musculoskeletal back pain 03/19/2018 Dermatologic No rash Neurologic No alteration of consciousness 03/19/2018 Neurologic No mental status change 03/19/2018 Psychiatric No anxiety 0 03/19/2018 Psychiatric No depression 03/19/2018 Endocrine diabetes mellitus type 2 03/19/2018 Musculoskeletal joint complaint 03/19/2018 Constitutional No recent illness 01/30/2018 Constitutional fatigue 0 01/30/2018 Constitutional No fever 01/30/2018 Constitutional No insomnia 01/30/2018 Eyes No blindness 2017 Eyes No vision change Ears/Nose/Throat/Neck No dizziness 01/30/2018 Cardiovascular No chest pain/pressure 01/30/2018 Cardiovascular fatigue 0 01/30/2018 Cardiovascular hypertension 01/30/2018 Respiratory No chest congestion 01/30/2018 Respiratory No cough 12/2017 Gastrointestinal No abdominal pain 01/30/2018 Gastrointestinal No constipation 01/30/2018 Gastrointestinal No diarrhea 01/30/2018 Gastrointestinal No nausea 01/30/2018 Gastrointestinal No vomiting 01/30/2018 Musculoskeletal No stiffness 01/30/2018 Musculoskeletal arthralgia(s) 01/30/2018 Musculoskeletal muscle weakness 01/30/2018 Musculoskeletal myalgias 01/30/2018 Dermatologic No rash 12/2017 Neurologic No alteration of consciousness 01/30/2018 Neurologic No mental status change 01/30/2018 Psychiatric No anxiety 0 01/30/2018 Psychiatric No depression 01/30/2018 Constitutional No recent illness 12/26/2017 Constitutional No fever 12/26/2017 Constitutional No insomnia 12/26/2017 Eyes No blindness 2017 Eyes No vision change Ears/Nose/Throat/Neck No dizziness 12/26/2017 Cardiovascular No chest pain/pressure 12/26/2017 Cardiovascular fatigue 0 12/26/2017 Cardiovascular hypertension 12/26/2017 Respiratory No chest congestion 12/26/2017 Respiratory No cough 08/2017 Gastrointestinal No abdominal pain 12/26/2017 Gastrointestinal No constipation 12/26/2017 Gastrointestinal No diarrhea 12/26/2017 Gastrointestinal No nausea 12/26/2017 Gastrointestinal No vomiting 12/26/2017 Musculoskeletal No stiffness 12/26/2017 Musculoskeletal No arthralgia(s) 12/26/2017 Dermatologic No rash 08/2017 Neurologic No alteration of consciousness 12/26/2017 Neurologic No mental status change 12/26/2017 Psychiatric No anxiety 0 12/26/2017 Psychiatric No depression 12/26/2017 Constitutional fatigue 0 12/26/2017 Musculoskeletal myalgias 12/26/2017 Musculoskeletal muscle weakness 12/26/2017 Genitourinary/Nephrology urinary frequency 12/26/2017 Constitutional No recent illness 11/21/2017 Constitutional No chills 11/21/2017 Constitutional No diaphoresis 11/21/2017 Constitutional No fever 11/21/2017 Eyes No eye erythema Ears/Nose/Throat/Neck No nasal discharge 11/21/2017 Ears/Nose/Throat/Neck No nasal allergies 11/21/2017 Cardiovascular No chest pain/pressure 11/21/2017 Cardiovascular No dyspnea 11/21/2017 Cardiovascular No palpitations 11/21/2017 Respiratory No cough Respiratory No chest congestion 11/21/2017 Gastrointestinal No abdominal pain 11/21/2017 Dermatologic No rash Neurologic No alteration of consciousness 11/21/2017 Neurologic No mental status change 11/21/2017 Constitutional fatigue 0 10/19/2017 Constitutional No fever 10/19/2017 Constitutional No insomnia 10/19/2017 Eyes No blindness 2017 Eyes No vision change Ears/Nose/Throat/Neck No dizziness 10/19/2017 Cardiovascular No chest pain/pressure 10/19/2017 Cardiovascular fatigue 0 10/19/2017 Cardiovascular hypertension 10/19/2017 Respiratory No chest congestion 10/19/2017 Respiratory No cough Gastrointestinal No abdominal pain 10/19/2017 Gastrointestinal No constipation 10/19/2017 Gastrointestinal No diarrhea 10/19/2017 Gastrointestinal No nausea 10/19/2017 Gastrointestinal No vomiting 10/19/2017 Musculoskeletal No stiffness 10/19/2017 Musculoskeletal No arthralgia(s) 10/19/2017 Musculoskeletal back pain 10/19/2017 Dermatologic No rash Neurologic No alteration of consciousness 10/19/2017 Neurologic No mental status change 10/19/2017 Psychiatric No anxiety 0 10/19/2017 Psychiatric No depression 10/19/2017 Endocrine diabetes mellitus type 2 10/19/2017 Gastrointestinal gastroesophageal reflux 10/19/2017 Genitourinary/Nephrology No dysuria 10/19/2017 Genitourinary/Nephrology urinary inc ontinence 10/19/2017 Constitutional fatigue 0 09/18/2017 Constitutional No fever 09/18/2017 Constitutional No insomnia 09/18/2017 Eyes No blindness 2017 Eyes No vision change Ears/Nose/Throat/Neck No dizziness 09/18/2017 Cardiovascular No chest pain/pressure 09/18/2017 Cardiovascular fatigue 0 09/18/2017 Cardiovascular hypertension 09/18/2017 Respiratory No chest congestion 09/18/2017 Respiratory No cough Gastrointestinal No abdominal pain 09/18/2017 Gastrointestinal No constipation 09/18/2017 Gastrointestinal No diarrhea 09/18/2017 Gastrointestinal No nausea 09/18/2017 Gastrointestinal No vomiting 09/18/2017 Genitourinary/Nephrology urinary frequency 09/18/2017 Musculoskeletal No stiffness 09/18/2017 Musculoskeletal No arthralgia(s) 09/18/2017 Musculoskeletal back pain 09/18/2017 Dermatologic No rash Neurologic No alteration of consciousness 09/18/2017 Neurologic No mental status change 09/18/2017 Psychiatric No anxiety 0 09/18/2017 Psychiatric No depression 09/18/2017 Endocrine diabetes mellitus type 2 09/18/2017 Constitutional No fever 07/21/2017 Eyes cataract 07/21/2017 Ears/Nose/Throat/Neck No dizziness 07/21/2017 Cardiovascular No chest pain/pressure 07/21/2017 Cardiovascular No syncope 07/21/2017 Respiratory No chest congestion 07/21/2017 Respiratory No cough Respiratory No dyspnea 0 07/21/2017 Gastrointestinal No abdominal pain 07/21/2017 Gastrointestinal No constipation 07/21/2017 Gastrointestinal No diarrhea 07/21/2017 Gastrointestinal No nausea 07/21/2017 Gastrointestinal No vomiting 07/21/2017 Musculoskeletal No stiffness 07/21/2017 Musculoskeletal No swelling 07/21/2017 Musculoskeletal No muscle weakness 07/21/2017 Musculoskeletal No myalgias 07/21/2017 Dermatologic No rash Neurologic No alteration of consciousness 07/21/2017 Neurologic No mental status change 07/21/2017 Psychiatric No anxiety 0 07/21/2017 Constitutional recent illness 07/21/2017 Constitutional No fever 05/04/2017 Eyes cataract 05/04/2017 Ears/Nose/Throat/Neck No dizziness 05/04/2017 Cardiovascular No chest pain/pressure 05/04/2017 Cardiovascular No syncope 05/04/2017 Respiratory No chest congestion 05/04/2017 Respiratory No cough 02/2017 Respiratory No dyspnea 1 07/04/2016 Gastrointestinal No abdominal pain 05/04/2017 Gastrointestinal No constipation 05/04/2017 Gastrointestinal No diarrhea 05/04/2017 Gastrointestinal No nausea 05/04/2017 Gastrointestinal No vomiting 05/04/2017 Dermatologic No rash 02/2017 Neurologic No alteration of consciousness 05/04/2017 Neurologic No mental status change 05/04/2017 Musculoskeletal No stiffness 05/04/2017 Musculoskeletal No swelling 05/04/2017 Musculoskeletal No muscle weakness 05/04/2017 Musculoskeletal No myalgias 05/04/2017 Psychiatric No anxiety 1 07/04/2016 Constitutional recent illness 03/30/2017 Constitutional fatigue 1 Constitutional malaise 1 Cardiovascular exercise intolerance 03/30/2017 Cardiovascular fatigue 1 Respiratory No chest congestion 03/30/2017 Respiratory No chest tightness 03/30/2017 Gastrointestinal No abdominal pain 03/30/2017 Psychiatric No anxiety 1 Psychiatric No depression 03/30/2017 Musculoskeletal stiffness 03/30/2017 Constitutional No fever 03/30/2017 Constitutional No insomnia 03/30/2017 Ears/Nose/Throat/Neck dizziness 03/30/2017 Cardiovascular No chest pain/pressure 03/30/2017 Cardiovascular hypertension 03/30/2017 Respiratory No cough 10/2016 Gastrointestinal No constipation 03/30/2017 Gastrointestinal No diarrhea 03/30/2017 Gastrointestinal No nausea 03/30/2017 Gastrointestinal No vomiting 03/30/2017 Genitourinary/Nephrology urinary frequency 03/30/2017 Musculoskeletal arthralgia(s) 03/30/2017 Musculoskeletal back pain 03/30/2017 Musculoskeletal muscle weakness 03/30/2017 Constitutional No fever 03/02/2017 Constitutional No insomnia 03/02/2017 Eyes No blindness 2016 Eyes No vision change Ears/Nose/Throat/Neck No dizziness 03/02/2017 Cardiovascular No chest pain/pressure 03/02/2017 Cardiovascular fatigue 0 03/02/2017 Cardiovascular hypertension 03/02/2017 Respiratory No chest congestion 03/02/2017 Respiratory No cough 12/2016 Gastrointestinal No abdominal pain 03/02/2017 Gastrointestinal No constipation 03/02/2017 Gastrointestinal No diarrhea 03/02/2017 Gastrointestinal No nausea 03/02/2017 Gastrointestinal No vomiting 03/02/2017 Genitourinary/Nephrology urinary frequency 03/02/2017 Musculoskeletal No stiffness 03/02/2017 Musculoskeletal No arthralgia(s) 03/02/2017 Musculoskeletal back pain 03/02/2017 Dermatologic No rash 12/2016 Neurologic No alteration of consciousness 03/02/2017 Neurologic No mental status change 03/02/2017 Psychiatric No anxiety 0 03/02/2017 Psychiatric No depression 03/02/2017 Constitutional No recent illness 03/02/2017 Constitutional fatigue 0 03/02/2017 Constitutional fatigue 0 01/31/2017 Constitutional No fever 01/31/2017 Constitutional No insomnia 01/31/2017 Eyes No blindness 2016 Eyes No vision change Ears/Nose/Throat/Neck dizziness 01/31/2017 Cardiovascular No chest pain/pressure 01/31/2017 Cardiovascular fatigue 0 01/31/2017 Cardiovascular hypertension 01/31/2017 Respiratory No chest congestion 01/31/2017 Respiratory No cough 01/2017 Gastrointestinal No abdominal pain 01/31/2017 Gastrointestinal No constipation 01/31/2017 Gastrointestinal No diarrhea 01/31/2017 Gastrointestinal No nausea 01/31/2017 Gastrointestinal No vomiting 01/31/2017 Genitourinary/Nephrology urinary frequency 01/31/2017 Musculoskeletal stiffness 01/31/2017 Musculoskeletal arthralgia(s) 01/31/2017 Musculoskeletal back pain 01/31/2017 Dermatologic No rash 01/2017 Neurologic No alteration of consciousness 01/31/2017 Neurologic No mental status change 01/31/2017 Psychiatric No anxiety 0 01/31/2017 Psychiatric No depression 01/31/2017 Musculoskeletal muscle weakness 01/31/2017 Constitutional fatigue 0 10/25/2016 Constitutional No fever 10/25/2016 Constitutional No insomnia 10/25/2016 Eyes No blindness 2016 Eyes No vision change Ears/Nose/Throat/Neck No dizziness 10/25/2016 Cardiovascular No chest pain/pressure 10/25/2016 Cardiovascular fatigue 0 10/25/2016 Cardiovascular hypertension 10/25/2016 Respiratory No chest congestion 10/25/2016 Respiratory No cough 07/2016 Gastrointestinal No abdominal pain 10/25/2016 Gastrointestinal No constipation 10/25/2016 Gastrointestinal No diarrhea 10/25/2016 Gastrointestinal No nausea 10/25/2016 Gastrointestinal No vomiting 10/25/2016 Genitourinary/Nephrology urinary frequency 10/25/2016 Musculoskeletal No stiffness 10/25/2016 Musculoskeletal No arthralgia(s) 10/25/2016 Musculoskeletal back pain 10/25/2016 Dermatologic No rash 07/2016 Neurologic No alteration of consciousness 10/25/2016 Neurologic No mental status change 10/25/2016 Psychiatric No anxiety 0 10/25/2016 Psychiatric No depression 10/25/2016 Constitutional fatigue 0 07/27/2016 Constitutional No fever 07/27/2016 Constitutional No insomnia 07/27/2016 Eyes No blindness 2016 Eyes No vision change Ears/Nose/Throat/Neck No dizziness 07/27/2016 Cardiovascular No chest pain/pressure 07/27/2016 Cardiovascular fatigue 0 07/27/2016 Cardiovascular hypertension 07/27/2016 Respiratory No chest congestion 07/27/2016 Respiratory No cough 06/2016 Gastrointestinal No abdominal pain 07/27/2016 Gastrointestinal No constipation 07/27/2016 Gastrointestinal No diarrhea 07/27/2016 Gastrointestinal No nausea 07/27/2016 Gastrointestinal No vomiting 07/27/2016 Genitourinary/Nephrology urinary frequency 07/27/2016 Musculoskeletal No stiffness 07/27/2016 Musculoskeletal No arthralgia(s) 07/27/2016 Musculoskeletal back pain 07/27/2016 Dermatologic No rash 06/2016 Neurologic No alteration of consciousness 07/27/2016 Neurologic No mental status change 07/27/2016 Psychiatric No anxiety 0 07/27/2016 Psychiatric No depression 07/27/2016 Constitutional fatigue 1 07/27/2015 Constitutional No fever 05/26/2016 Constitutional No insomnia 05/26/2016 Eyes No blindness 2015 Eyes No vision change Ears/Nose/Throat/Neck No dizziness 05/26/2016 Cardiovascular No chest pain/pressure 05/26/2016 Cardiovascular fatigue 1 07/27/2015 Cardiovascular hypertension 05/26/2016 Respiratory No chest congestion 05/26/2016 Respiratory No cough 06/2015 Gastrointestinal No abdominal pain 05/26/2016 Gastrointestinal No constipation 05/26/2016 Gastrointestinal No diarrhea 05/26/2016 Gastrointestinal No nausea 05/26/2016 Gastrointestinal No vomiting 05/26/2016 Genitourinary/Nephrology urinary frequency 05/26/2016 Musculoskeletal No stiffness 05/26/2016 Musculoskeletal No arthralgia(s) 05/26/2016 Musculoskeletal back pain 05/26/2016 Dermatologic No rash 06/2015 Neurologic No alteration of consciousness 05/26/2016 Neurologic No mental status change 05/26/2016 Psychiatric No anxiety 1 07/27/2015 Psychiatric No depression 05/26/2016 Constitutional fatigue 1 07/12/2015 Constitutional No fever 05/12/2016 Constitutional No insomnia 05/12/2016 Eyes No blindness 2015 Eyes No vision change Ears/Nose/Throat/Neck No dizziness 05/12/2016 Cardiovascular No chest pain/pressure 05/12/2016 Cardiovascular fatigue 1 07/12/2015 Cardiovascular hypertension 05/12/2016 Respiratory No chest congestion 05/12/2016 Respiratory No cough Gastrointestinal No abdominal pain 05/12/2016 Gastrointestinal No constipation 05/12/2016 Gastrointestinal No diarrhea 05/12/2016 Gastrointestinal No nausea 05/12/2016 Gastrointestinal No vomiting 05/12/2016 Genitourinary/Nephrology urinary frequency 05/12/2016 Musculoskeletal No stiffness 05/12/2016 Musculoskeletal No arthralgia(s) 05/12/2016 Musculoskeletal back pain 05/12/2016 Dermatologic No rash Neurologic No alteration of consciousness 05/12/2016 Neurologic No mental status change 05/12/2016 Psychiatric No anxiety 1 07/12/2015 Psychiatric No depression 05/12/2016 Constitutional fatigue 0 02/23/2016 Constitutional No fever 02/23/2016 Constitutional No insomnia 02/23/2016 Eyes No blindness 2015 Eyes No vision change Ears/Nose/Throat/Neck No dizziness 02/23/2016 Cardiovascular No chest pain/pressure 02/23/2016 Cardiovascular fatigue 0 02/23/2016 Cardiovascular hypertension 02/23/2016 Respiratory No chest congestion 02/23/2016 Respiratory No cough Gastrointestinal No abdominal pain 02/23/2016 Gastrointestinal No constipation 02/23/2016 Gastrointestinal No diarrhea 02/23/2016 Gastrointestinal No nausea 02/23/2016 Gastrointestinal No vomiting 02/23/2016 Genitourinary/Nephrology urinary frequency 02/23/2016 Musculoskeletal No stiffness 02/23/2016 Musculoskeletal No arthralgia(s) 02/23/2016 Musculoskeletal back pain 02/23/2016 Dermatologic No rash Neurologic No alteration of consciousness 02/23/2016 Neurologic No mental status change 02/23/2016 Psychiatric No anxiety 0 02/23/2016 Psychiatric No depression 02/23/2016 Constitutional fatigue 0 12/10/2015 Constitutional No fever 12/10/2015 Constitutional No insomnia 12/10/2015 Eyes No blindness 2015 Eyes No vision change Ears/Nose/Throat/Neck No dizziness 12/10/2015 Cardiovascular No chest pain/pressure 12/10/2015 Cardiovascular fatigue 0 12/10/2015 Cardiovascular hypertension 12/10/2015 Respiratory No chest congestion 12/10/2015 Respiratory No cough Gastrointestinal No abdominal pain 12/10/2015 Gastrointestinal No constipation 12/10/2015 Gastrointestinal No diarrhea 12/10/2015 Gastrointestinal No nausea 12/10/2015 Gastrointestinal No vomiting 12/10/2015 Genitourinary/Nephrology urinary frequency 12/10/2015 Musculoskeletal No stiffness 12/10/2015 Musculoskeletal No arthralgia(s) 12/10/2015 Musculoskeletal back pain 12/10/2015 Dermatologic No rash Neurologic No alteration of consciousness 12/10/2015 Neurologic No mental status change 12/10/2015 Psychiatric No anxiety 0 12/10/2015 Psychiatric No depression 12/10/2015 Constitutional fatigue 0 11/10/2015 Constitutional No fever 11/10/2015 Constitutional No insomnia 11/10/2015 Eyes No blindness 2015 Eyes No vision change Ears/Nose/Throat/Neck No dizziness 11/10/2015 Cardiovascular No chest pain/pressure 11/10/2015 Cardiovascular fatigue 0 11/10/2015 Cardiovascular hypertension 11/10/2015 Respiratory No chest congestion 11/10/2015 Respiratory No cough Gastrointestinal No abdominal pain 11/10/2015 Gastrointestinal No constipation 11/10/2015 Gastrointestinal No diarrhea 11/10/2015 Gastrointestinal No nausea 11/10/2015 Gastrointestinal No vomiting 11/10/2015 Genitourinary/Nephrology urinary frequency 11/10/2015 Musculoskeletal No stiffness 11/10/2015 Musculoskeletal No arthralgia(s) 11/10/2015 Musculoskeletal back pain 11/10/2015 Dermatologic No rash Neurologic No alteration of consciousness 11/10/2015 Neurologic No mental status change 11/10/2015 Psychiatric No anxiety 0 11/10/2015 Psychiatric No depression 11/10/2015 Constitutional fatigue 0 08/07/2015 Constitutional No fever 08/07/2015 Constitutional No insomnia 08/07/2015 Eyes No blindness 2015 Eyes No vision change Ears/Nose/Throat/Neck No dizziness 08/07/2015 Cardiovascular No chest pain/pressure 08/07/2015 Cardiovascular dyspnea 0 08/07/2015 Cardiovascular edema 05/2016 Cardiovascular fatigue 0 08/07/2015 Cardiovascular hypertension 08/07/2015 Respiratory No chest congestion 08/07/2015 Respiratory No cough 05/2016 Gastrointestinal No abdominal pain 08/07/2015 Gastrointestinal No constipation 08/07/2015 Gastrointestinal No diarrhea 08/07/2015 Gastrointestinal No nausea 08/07/2015 Gastrointestinal No vomiting 08/07/2015 Genitourinary/Nephrology urinary frequency 08/07/2015 Musculoskeletal No stiffness 08/07/2015 Musculoskeletal No arthralgia(s) 08/07/2015 Musculoskeletal back pain 08/07/2015 Dermatologic No rash 05/2016 Neurologic No alteration of consciousness 08/07/2015 Neurologic No mental status change 08/07/2015 Psychiatric No anxiety 0 08/07/2015 Psychiatric No depression 08/07/2015 Constitutional fatigue 0 07/07/2015 Constitutional No fever 07/07/2015 Constitutional No insomnia 07/07/2015 Eyes No blindness 2015 Eyes No vision change Ears/Nose/Throat/Neck No dizziness 07/07/2015 Cardiovascular No chest pain/pressure 07/07/2015 Cardiovascular dyspnea 0 07/07/2015 Cardiovascular edema 05/2016 Cardiovascular fatigue 0 07/07/2015 Cardiovascular hypertension 07/07/2015 Respiratory No chest congestion 07/07/2015 Respiratory No cough 05/2016 Gastrointestinal No abdominal pain 07/07/2015 Gastrointestinal No constipation 07/07/2015 Gastrointestinal No diarrhea 07/07/2015 Gastrointestinal No nausea 07/07/2015 Gastrointestinal No vomiting 07/07/2015 Genitourinary/Nephrology urinary frequency 07/07/2015 Musculoskeletal No stiffness 07/07/2015 Musculoskeletal No arthralgia(s) 07/07/2015 Dermatologic No rash 05/2016 Neurologic No alteration of consciousness 07/07/2015 Neurologic No mental status change 07/07/2015 Psychiatric No anxiety 0 07/07/2015 Psychiatric No depression 07/07/2015 Musculoskeletal back pain 07/07/2015 Constitutional No chills 04/02/2015 Constitutional No fever 04/02/2015 Constitutional fatigue 1 Eyes No eye discharge Ears/Nose/Throat/Neck No nasal allergies 04/02/2015 Constitutional No recent illness 04/02/2015 Cardiovascular No dyspnea 04/02/2015 Cardiovascular fatigue 1 Respiratory No chest congestion 04/02/2015 Respiratory No cough 01/2015 Gastrointestinal dyspepsia 04/02/2015 Gastrointestinal No constipation 04/02/2015 Gastrointestinal No diarrhea 04/02/2015 Gastrointestinal gastroesophageal reflux 04/02/2015 Dermatologic erythema Constitutional fatigue 0 12/23/2014 Constitutional No insomnia 12/23/2014 Ears/Nose/Throat/Neck postnasal drip 12/23/2014 Cardiovascular fatigue 0 12/23/2014 Respiratory No chest congestion 12/23/2014 Respiratory No cough Gastrointestinal No abdominal pain 12/23/2014 Gastrointestinal No constipation 12/23/2014 Gastrointestinal No diarrhea 12/23/2014 Genitourinary/Nephrology urinary frequency 12/23/2014 Constitutional No fever 12/23/2014 Eyes No blindness 2014 Eyes No vision change Ears/Nose/Throat/Neck No dizziness 12/23/2014 Cardiovascular No chest pain/pressure 12/23/2014 Cardiovascular dyspnea 0 12/23/2014 Cardiovascular edema Cardiovascular hypertension 12/23/2014 Gastrointestinal No nausea 12/23/2014 Gastrointestinal No vomiting 12/23/2014 Musculoskeletal No stiffness 12/23/2014 Musculoskeletal No arthralgia(s) 12/23/2014 Dermatologic No rash Neurologic No alteration of consciousness 12/23/2014 Neurologic No mental status change 12/23/2014 Psychiatric No anxiety 0 12/23/2014 Psychiatric No depression 12/23/2014 Constitutional fatigue 0 10/22/2014 Constitutional No insomnia 10/22/2014 Cardiovascular dyspnea 0 10/22/2014 Cardiovascular No chest pain/pressure 10/22/2014 Respiratory No chest congestion 10/22/2014 Respiratory No cough Gastrointestinal No constipation 10/22/2014 Gastrointestinal No diarrhea 10/22/2014 Gastrointestinal No abdominal pain 10/22/2014 Constitutional No fever 10/22/2014 Eyes No blindness 2014 Eyes No vision change Ears/Nose/Throat/Neck No dizziness 10/22/2014 Cardiovascular edema Cardiovascular hypertension 10/22/2014 Gastrointestinal No nausea 10/22/2014 Gastrointestinal No vomiting 10/22/2014 Musculoskeletal No stiffness 10/22/2014 Musculoskeletal No arthralgia(s) 10/22/2014 Dermatologic No rash Neurologic No alteration of consciousness 10/22/2014 Neurologic No mental status change 10/22/2014 Psychiatric No anxiety 0 10/22/2014 Psychiatric No depression 10/22/2014 Constitutional recent illness 09/26/2014 Constitutional No anorexia 09/26/2014 Constitutional No night sweats 09/26/2014 Constitutional chills Constitutional diaphoresis 09/26/2014 Constitutional fatigue 0 09/26/2014 Constitutional fever 08/2014 Constitutional No insomnia 09/26/2014 Constitutional No malaise 09/26/2014 Constitutional No weight loss 09/26/2014 Constitutional No weight gain 09/26/2014 Eyes No eye discharge Eyes No eye erythema 08/2014 Ears/Nose/Throat/Neck No dizziness 09/26/2014 Ears/Nose/Throat/Neck nasal allergies 09/26/2014 Ears/Nose/Throat/Neck nasal discharge 09/26/2014 Ears/Nose/Throat/Neck No otalgia 09/26/2014 Ears/Nose/Throat/Neck sinus congestion 09/26/2014 Ears/Nose/Throat/Neck No sore throat 09/26/2014 Respiratory productive sputum 09/26/2014 Respiratory cough 2014 Gastrointestinal No constipation 09/26/2014 Gastrointestinal No diarrhea 09/26/2014 Genitourinary/Nephrology No dysuria 09/26/2014 Cardiovascular No chest pain/pressure 09/26/2014 Musculoskeletal No joint complaint 09/26/2014 Dermatologic No rash 08/2014 Dermatologic No sores Neurologic No alteration of consciousness 09/26/2014 Constitutional No fever 07/01/2014 Eyes No blindness 2014 Eyes No vision change Ears/Nose/Throat/Neck No dizziness 07/01/2014 Cardiovascular edema 11/2014 Cardiovascular fatigue 0 07/01/2014 Cardiovascular hypertension 07/01/2014 Respiratory No chest congestion 07/01/2014 Respiratory No cough 11/2014 Respiratory No dyspnea 0 07/01/2014 Gastrointestinal No abdominal pain 07/01/2014 Gastrointestinal No constipation 07/01/2014 Gastrointestinal No diarrhea 07/01/2014 Gastrointestinal No nausea 07/01/2014 Gastrointestinal No vomiting 07/01/2014 Musculoskeletal No stiffness 07/01/2014 Musculoskeletal No arthralgia(s) 07/01/2014 Dermatologic No rash 11/2014 Neurologic No alteration of consciousness 07/01/2014 Neurologic No mental status change 07/01/2014 Psychiatric No anxiety 0 07/01/2014 Psychiatric No depression 07/01/2014 Constitutional No fever 06/09/2014 Eyes No blindness 2013 Eyes No vision change Ears/Nose/Throat/Neck No dizziness 06/09/2014 Cardiovascular edema Cardiovascular fatigue 1 08/10/2013 Cardiovascular hypertension 06/09/2014 Respiratory No chest congestion 06/09/2014 Respiratory No cough Respiratory No dyspnea 1 08/10/2013 Gastrointestinal No abdominal pain 06/09/2014 Gastrointestinal No constipation 06/09/2014 Gastrointestinal No diarrhea 06/09/2014 Gastrointestinal No nausea 06/09/2014 Gastrointestinal No vomiting 06/09/2014 Musculoskeletal No stiffness 06/09/2014 Musculoskeletal No arthralgia(s) 06/09/2014 Dermatologic No rash Neurologic No alteration of consciousness 06/09/2014 Neurologic No mental status change 06/09/2014 Psychiatric No anxiety 1 08/10/2013 Psychiatric No depression 06/09/2014 Constitutional No fever 05/07/2014 Eyes No blindness 2013 Eyes No vision change Ears/Nose/Throat/Neck No dizziness 05/07/2014 Respiratory No chest congestion 05/07/2014 Respiratory No cough 05/2014 Respiratory No dyspnea 1 07/07/2013 Gastrointestinal No abdominal pain 05/07/2014 Gastrointestinal No constipation 05/07/2014 Gastrointestinal No diarrhea 05/07/2014 Gastrointestinal No nausea 05/07/2014 Gastrointestinal No vomiting 05/07/2014 Musculoskeletal No stiffness 05/07/2014 Musculoskeletal No arthralgia(s) 05/07/2014 Dermatologic No rash 05/2014 Neurologic No alteration of consciousness 05/07/2014 Neurologic No mental status change 05/07/2014 Cardiovascular hypertension 05/07/2014 Cardiovascular fatigue 1 07/07/2013 Cardiovascular edema 05/2014 Psychiatric No anxiety 1 07/07/2013 Psychiatric No depression 05/07/2014 Eyes No blindness 2013 Eyes No vision change Respiratory No chest congestion 04/21/2014 Respiratory No cough Respiratory No dyspnea 1 Gastrointestinal No abdominal pain 04/21/2014 Gastrointestinal No constipation 04/21/2014 Gastrointestinal No diarrhea 04/21/2014 Gastrointestinal nausea 04/21/2014 Musculoskeletal No stiffness 04/21/2014 Musculoskeletal No arthralgia(s) 04/21/2014 Dermatologic No rash Neurologic No alteration of consciousness 04/21/2014 Neurologic No mental status change 04/21/2014 Constitutional recent illness 04/21/2014 Constitutional fatigue 1 Constitutional fever Constitutional malaise 1 Constitutional weight loss 04/21/2014 Constitutional chills Ears/Nose/Throat/Neck No headache 04/21/2014 Ears/Nose/Throat/Neck No facial weakness 04/21/2014 Ears/Nose/Throat/Neck dizziness 04/21/2014 Cardiovascular No chest pain/pressure 04/21/2014 Cardiovascular dyspnea 1 Cardiovascular edema Cardiovascular fatigue 1 Genitourinary/Nephrology dysuria 04/21/2014 Genitourinary/Nephrology urinary urgency 04/21/2014 Genitourinary/Nephrology urinary frequency 04/21/2014 Psychiatric No anxiety 1 Psychiatric No depression 04/21/2014 Constitutional recent illness 02/14/2014 Constitutional No chills 02/14/2014 Constitutional No fatigue 02/14/2014 Constitutional No fever 02/14/2014 Constitutional No insomnia 02/14/2014 Constitutional No malaise 02/14/2014 Cardiovascular No chest pain/pressure 02/14/2014 Cardiovascular No dyspnea 02/14/2014 Cardiovascular No edema 02/14/2014 Cardiovascular No exercise intolerance 02/14/2014 Cardiovascular No fatigue 02/14/2014 Cardiovascular No near-syncope/dizziness 02/14/2014 Respiratory No chest tightness 02/14/2014 Respiratory No cigarette smoking 02/14/2014 Respiratory No cough Respiratory No dyspnea 0 02/14/2014 Respiratory No pedal edema 02/14/2014 Respiratory No snoring 0 02/14/2014 Respiratory No wheezing 02/14/2014 Musculoskeletal No stiffness 02/14/2014 Musculoskeletal No swelling 02/14/2014 Musculoskeletal No muscle weakness 02/14/2014 Musculoskeletal No myalgias 02/14/2014 Genitourinary/Nephrology No dysuria 02/14/2014 Genitourinary/Nephrology No nocturia 02/14/2014 Genitourinary/Nephrology No urinary incontinence 02/14/2014 Eyes No blindness 2013 Eyes No vision change Ears/Nose/Throat/Neck No dizziness 02/14/2014 Respiratory No chest congestion 02/14/2014 Gastrointestinal No abdominal pain 02/14/2014 Gastrointestinal No constipation 02/14/2014 Gastrointestinal No diarrhea 02/14/2014 Gastrointestinal No nausea 02/14/2014 Gastrointestinal No vomiting 02/14/2014 Musculoskeletal No arthralgia(s) 02/14/2014 Neurologic No alteration of consciousness 02/14/2014 Neurologic No mental status change 02/14/2014 Constitutional No fever 11/14/2013 Eyes No blindness 2013 Eyes No vision change Ears/Nose/Throat/Neck No dizziness 11/14/2013 Respiratory No chest congestion 11/14/2013 Respiratory No cough Respiratory No dyspnea 0 11/14/2013 Gastrointestinal No abdominal pain 11/14/2013 Gastrointestinal No constipation 11/14/2013 Gastrointestinal No diarrhea 11/14/2013 Gastrointestinal No nausea 11/14/2013 Gastrointestinal No vomiting 11/14/2013 Musculoskeletal No stiffness 11/14/2013 Musculoskeletal No arthralgia(s) 11/14/2013 Dermatologic No rash Neurologic No alteration of consciousness 11/14/2013 Neurologic No mental status change 11/14/2013 Constitutional No fever 10/24/2013 Eyes No blindness 2013 Eyes No vision change Ears/Nose/Throat/Neck No dizziness 10/24/2013 Respiratory No chest congestion 10/24/2013 Respiratory No cough 06/2013 Respiratory No dyspnea 0 10/24/2013 Gastrointestinal No abdominal pain 10/24/2013 Gastrointestinal No constipation 10/24/2013 Gastrointestinal No diarrhea 10/24/2013 Gastrointestinal No nausea 10/24/2013 Gastrointestinal No vomiting 10/24/2013 Musculoskeletal No stiffness 10/24/2013 Musculoskeletal No arthralgia(s) 10/24/2013 Dermatologic No rash 06/2013 Neurologic No alteration of consciousness 10/24/2013 Neurologic No mental status change 10/24/2013 Constitutional No fever 06/24/2013 Eyes No blindness 2012 Eyes No vision change Ears/Nose/Throat/Neck No dizziness 06/24/2013 Respiratory No chest congestion 06/24/2013 Respiratory No cough Respiratory No dyspnea 1 Gastrointestinal abdominal pain 06/24/2013 Gastrointestinal No constipation 06/24/2013 Gastrointestinal No diarrhea 06/24/2013 Gastrointestinal gas and bloating 06/24/2013 Gastrointestinal gastroesophageal reflux 06/24/2013 Gastrointestinal No nausea 06/24/2013 Gastrointestinal No vomiting 06/24/2013 Musculoskeletal No stiffness 06/24/2013 Musculoskeletal No arthralgia(s) 06/24/2013 Dermatologic No rash Neurologic No alteration of consciousness 06/24/2013 Neurologic No mental status change 06/24/2013 Constitutional No fever 06/05/2013 Eyes No blindness 2012 Eyes No vision change Ears/Nose/Throat/Neck No dizziness 06/05/2013 Respiratory No chest congestion 06/05/2013 Respiratory No cough 04/2013 Respiratory No dyspnea 1 08/06/2012 Gastrointestinal abdominal pain 06/05/2013 Gastrointestinal No constipation 06/05/2013 Gastrointestinal No diarrhea 06/05/2013 Gastrointestinal No nausea 06/05/2013 Gastrointestinal No vomiting 06/05/2013 Musculoskeletal No stiffness 06/05/2013 Musculoskeletal No arthralgia(s) 06/05/2013 Dermatologic No rash 04/2013 Neurologic No alteration of consciousness 06/05/2013 Neurologic No mental status change 06/05/2013 Gastrointestinal gas and bloating 06/05/2013 Gastrointestinal gastroesophageal reflux 06/05/2013 Constitutional No fever 04/01/2013 Ears/Nose/Throat/Neck No dizziness 04/01/2013 Respiratory No chest congestion 04/01/2013 Respiratory No cough 12/2012 Respiratory No dyspnea 1 Gastrointestinal No abdominal pain 04/01/2013 Gastrointestinal No constipation 04/01/2013 Gastrointestinal No diarrhea 04/01/2013 Gastrointestinal No nausea 04/01/2013 Gastrointestinal No vomiting 04/01/2013 Musculoskeletal No stiffness 04/01/2013 Musculoskeletal No arthralgia(s) 04/01/2013 Dermatologic No rash 12/2012 Neurologic No alteration of consciousness 04/01/2013 Neurologic No mental status change 04/01/2013 Eyes No blindness 2012 Eyes No vision change Constitutional No fever 01/29/2013 Ears/Nose/Throat/Neck No dizziness 01/29/2013 Respiratory No chest congestion 01/29/2013 Respiratory No cough 11/2012 Respiratory No dyspnea 0 01/29/2013 Gastrointestinal No abdominal pain 01/29/2013 Gastrointestinal No constipation 01/29/2013 Gastrointestinal No diarrhea 01/29/2013 Gastrointestinal No nausea 01/29/2013 Gastrointestinal No vomiting 01/29/2013 Musculoskeletal No stiffness 01/29/2013 Musculoskeletal No arthralgia(s) 01/29/2013 Dermatologic No rash 11/2012 Neurologic No alteration of consciousness 01/29/2013 Neurologic No mental status change 01/29/2013 Constitutional No fever 12/25/2012 Ears/Nose/Throat/Neck No dizziness 12/25/2012 Respiratory No chest congestion 12/25/2012 Respiratory No cough 07/2012 Respiratory No dyspnea 0 12/25/2012 Gastrointestinal No abdominal pain 12/25/2012 Gastrointestinal No constipation 12/25/2012 Gastrointestinal No diarrhea 12/25/2012 Gastrointestinal No nausea 12/25/2012 Gastrointestinal No vomiting 12/25/2012 Musculoskeletal No stiffness 12/25/2012 Musculoskeletal No arthralgia(s) 12/25/2012 Dermatologic No rash 07/2012 Neurologic No alteration of consciousness 12/25/2012 Neurologic No mental status change 12/25/2012 Constitutional No fever 10/01/2012 Ears/Nose/Throat/Neck No dizziness 10/01/2012 Respiratory No chest congestion 10/01/2012 Respiratory No cough 01/2013 Respiratory No dyspnea 0 10/01/2012 Gastrointestinal No abdominal pain 10/01/2012 Gastrointestinal No constipation 10/01/2012 Gastrointestinal No diarrhea 10/01/2012 Gastrointestinal No nausea 10/01/2012 Gastrointestinal No vomiting 10/01/2012 Dermatologic No rash 01/2013 Neurologic No alteration of consciousness 10/01/2012 Neurologic No mental status change 10/01/2012 Musculoskeletal No arthralgia(s) 10/01/2012 Musculoskeletal No stiffness 10/01/2012 Gastrointestinal No abdominal pain 06/29/2012 Gastrointestinal No constipation 06/29/2012 Gastrointestinal No diarrhea 06/29/2012 Gastrointestinal No nausea 06/29/2012 Gastrointestinal No vomiting 06/29/2012 Genitourinary/Nephrology No dysuria 06/29/2012 Cardiovascular No chest pain/pressure 06/29/2012 Ears/Nose/Throat/Neck No dizziness 06/29/2012 Ears/Nose/Throat/Neck No headache 06/29/2012 Ears/Nose/Throat/Neck nasal allergies 06/29/2012 Ears/Nose/Throat/Neck nasal discharge 06/29/2012 Ears/Nose/Throat/Neck sinus congestion 06/29/2012 Ears/Nose/Throat/Neck sore throat 06/29/2012 Ears/Nose/Throat/Neck No otalgia 06/29/2012 Eyes No eye discharge Eyes No eye erythema 09/2012 Constitutional No fatigue 06/29/2012 Constitutional recent illness 06/29/2012 Constitutional No night sweats 06/29/2012 Constitutional No anorexia 06/29/2012 Constitutional chills Constitutional diaphoresis 06/29/2012 Constitutional fever 09/2012 Musculoskeletal No joint complaint 06/29/2012 Dermatologic No sores Dermatologic No rash 09/2012 Constitutional recent illness 05/28/2012 Constitutional No chills 05/28/2012 Constitutional No fatigue 05/28/2012 Constitutional fever 08/2011 Constitutional No insomnia 05/28/2012 Constitutional No malaise 05/28/2012 Cardiovascular No chest pain/pressure 05/28/2012 Cardiovascular No dyspnea 05/28/2012 Cardiovascular No edema 05/28/2012 Cardiovascular No exercise intolerance 05/28/2012 Cardiovascular No fatigue 05/28/2012 Cardiovascular No near-syncope/dizziness 05/28/2012 Gastrointestinal No hemorrhoids 05/28/2012 Gastrointestinal No abdominal pain 05/28/2012 Gastrointestinal No constipation 05/28/2012 Gastrointestinal No diarrhea 05/28/2012 Gastrointestinal No gastroesophageal reflu x 05/28/2012 Gastrointestinal No melena 05/28/2012 Gastrointestinal No nausea 05/28/2012 Gastrointestinal No vomiting 05/28/2012 Genitourinary/Nephrology No dysuria 05/28/2012 Genitourinary/Nephrology No nocturia 05/28/2012 Genitourinary/Nephrology No urinary incontinence 05/28/2012 Dermatologic No rash 08/2011 Dermatologic No scar 08/2011 Cardiovascular No syncope 04/02/2012 Constitutional No fever 04/02/2012 Dermatologic No rash 01/2012 Gastrointestinal No abdominal pain 04/02/2012 Neurologic No alteration of consciousness 04/02/2012 Neurologic No mental status change 04/02/2012 Respiratory No chest congestion 04/02/2012 Respiratory No cough 01/2012 Eyes cataract 04/02/2012 Ears/Nose/Throat/Neck No dizziness 04/02/2012 Cardiovascular No chest pain/pressure 04/02/2012 Respiratory No dyspnea 1 Gastrointestinal No constipation 04/02/2012 Gastrointestinal No diarrhea 04/02/2012 Gastrointestinal No nausea 04/02/2012 Gastrointestinal No vomiting 04/02/2012 Constitutional recent illness 01/24/2012 Constitutional No anorexia 01/24/2012 Constitutional No night sweats 01/24/2012 Constitutional No chills 01/24/2012 Constitutional No diaphoresis 01/24/2012 Constitutional No insomnia 01/24/2012 Constitutional No fever 01/24/2012 Constitutional fatigue 0 01/24/2012 Eyes No eye discharge Eyes No eye erythema Cardiovascular No chest pain/pressure 01/24/2012 Gastrointestinal No vomiting 01/24/2012 Gastrointestinal No nausea 01/24/2012 Gastrointestinal No abdominal pain 01/24/2012 Gastrointestinal No constipation 01/24/2012 Gastrointestinal No diarrhea 01/24/2012 Genitourinary/Nephrology No dysuria 01/24/2012 Musculoskeletal No joint complaint 01/24/2012 Dermatologic No rash Dermatologic No sores Constitutional No fever 10/03/2011 Eyes cataract 10/03/2011 Ears/Nose/Throat/Neck No dizziness 10/03/2011 Cardiovascular No chest pain/pressure 10/03/2011 Respiratory No dyspnea 0 10/03/2011 Gastrointestinal No vomiting 10/03/2011 Gastrointestinal No nausea 10/03/2011 Gastrointestinal No diarrhea 10/03/2011 Gastrointestinal No constipation 10/03/2011 Cardiovascular No syncope 10/03/2011 Respiratory No chest congestion 10/03/2011 Respiratory No cough 02/2012 Gastrointestinal No abdominal pain 10/03/2011 Dermatologic No rash 02/2012 Neurologic No alteration of consciousness 10/03/2011 Neurologic No mental status change 10/03/2011 Constitutional No fever 05/30/2011 Constitutional No chills 05/30/2011 Constitutional No fatigue 05/30/2011 Cardiovascular No chest pain/pressure 05/30/2011 Gastrointestinal No nausea 05/30/2011 Gastrointestinal No vomiting 05/30/2011 Dermatologic No rash 10/2010 Dermatologic No sores Musculoskeletal No stiffness 05/30/2011 Musculoskeletal No arthralgia(s) 05/30/2011 System Result Effective Dates Constitutional No recent illness 10/08/2018 Constitutional fatigue 0 10/08/2018 Constitutional No fever 10/08/2018 Constitutional No insomnia 10/08/2018 Eyes No blindness 2018 Eyes No vision change Ears/Nose/Throat/Neck No dizziness 10/08/2018 Cardiovascular No chest pain/pressure 10/08/2018 Cardiovascular fatigue 0 10/08/2018 Cardiovascular hypertension 10/08/2018 Respiratory No chest congestion 10/08/2018 Respiratory No cough Gastrointestinal No abdominal pain 10/08/2018 Gastrointestinal No constipation 10/08/2018 Gastrointestinal No diarrhea 10/08/2018 Gastrointestinal No nausea 10/08/2018 Gastrointestinal No vomiting 10/08/2018 Musculoskeletal No stiffness 10/08/2018 Musculoskeletal arthralgia(s) 10/08/2018 Musculoskeletal muscle weakness 10/08/2018 Musculoskeletal myalgias 10/08/2018 Dermatologic No rash Neurologic No alteration of consciousness 10/08/2018 Neurologic No mental status change 10/08/2018 Psychiatric No anxiety 0 10/08/2018 Psychiatric No depression 10/08/2018 Musculoskeletal sciatica 10/08/2018 Constitutional No recent illness 09/27/2018 Constitutional No anorexia 09/27/2018 Constitutional No night sweats 09/27/2018 Constitutional No chills 09/27/2018 Constitutional No diaphoresis 09/27/2018 Constitutional fatigue 0 09/27/2018 Constitutional No fever 09/27/2018 Constitutional No insomnia 09/27/2018 Constitutional No malaise 09/27/2018 Constitutional No weight loss 09/27/2018 Constitutional No weight gain 09/27/2018 Constitutional fatigue 0 09/11/2018 Constitutional No fever 09/11/2018 Constitutional No insomnia 09/11/2018 Eyes No blindness 2018 Eyes No vision change Ears/Nose/Throat/Neck No dizziness 09/11/2018 Cardiovascular No chest pain/pressure 09/11/2018 Cardiovascular fatigue 0 09/11/2018 Cardiovascular hypertension 09/11/2018 Respiratory No chest congestion 09/11/2018 Respiratory No cough Gastrointestinal No abdominal pain 09/11/2018 Gastrointestinal No constipation 09/11/2018 Gastrointestinal No diarrhea 09/11/2018 Gastrointestinal No nausea 09/11/2018 Gastrointestinal No vomiting 09/11/2018 Genitourinary/Nephrology No dysuria 09/11/2018 Musculoskeletal No stiffness 09/11/2018 Musculoskeletal No arthralgia(s) 09/11/2018 Dermatologic No rash Neurologic No alteration of consciousness 09/11/2018 Neurologic No mental status change 09/11/2018 Psychiatric No anxiety 0 09/11/2018 Psychiatric No depression 09/11/2018 Endocrine diabetes mellitus type 2 09/11/2018 Musculoskeletal joint complaint 09/11/2018 Constitutional fatigue 1 08/05/2017 Constitutional No fever 06/04/2018 Constitutional No insomnia 06/04/2018 Eyes No blindness 2017 Eyes No vision change Ears/Nose/Throat/Neck No dizziness 06/04/2018 Cardiovascular No chest pain/pressure 06/04/2018 Cardiovascular fatigue 1 08/05/2017 Cardiovascular hypertension 06/04/2018 Respiratory No chest congestion 06/04/2018 Respiratory cough 2017 Gastrointestinal No abdominal pain 06/04/2018 Gastrointestinal No constipation 06/04/2018 Gastrointestinal No diarrhea 06/04/2018 Gastrointestinal No nausea 06/04/2018 Gastrointestinal No vomiting 06/04/2018 Genitourinary/Nephrology No dysuria 06/04/2018 Genitourinary/Nephrology urinary inc ontinence 06/04/2018 Musculoskeletal No stiffness 06/04/2018 Musculoskeletal No arthralgia(s) 06/04/2018 Musculoskeletal back pain 06/04/2018 Musculoskeletal joint complaint 06/04/2018 Dermatologic No rash 03/2018 Neurologic No alteration of consciousness 06/04/2018 Neurologic No mental status change 06/04/2018 Psychiatric No anxiety 1 08/05/2017 Psychiatric No depression 06/04/2018 Endocrine diabetes mellitus type 2 06/04/2018 Constitutional recent illness 03/27/2018 Constitutional No anorexia 03/27/2018 Constitutional No night sweats 03/27/2018 Constitutional No chills 03/27/2018 Constitutional No diaphoresis 03/27/2018 Constitutional fatigue 1 Constitutional No fever 03/27/2018 Constitutional No insomnia 03/27/2018 Constitutional No malaise 03/27/2018 Constitutional No weight loss 03/27/2018 Constitutional No weight gain 03/27/2018 Eyes No eye discharge Eyes No eye erythema 07/2017 Ears/Nose/Throat/Neck No dizziness 03/27/2018 Ears/Nose/Throat/Neck No headache 03/27/2018 Ears/Nose/Throat/Neck nasal allergies 03/27/2018 Ears/Nose/Throat/Neck nasal discharge 03/27/2018 Ears/Nose/Throat/Neck sinus congestion 03/27/2018 Ears/Nose/Throat/Neck No sore throat 03/27/2018 Cardiovascular No chest pain/pressure 03/27/2018 Cardiovascular No dyspnea 03/27/2018 Cardiovascular No edema 03/27/2018 Respiratory productive sputum 03/27/2018 Respiratory cough 2017 Gastrointestinal No abdominal pain 03/27/2018 Gastrointestinal No constipation 03/27/2018 Gastrointestinal No diarrhea 03/27/2018 Genitourinary/Nephrology No dysuria 03/27/2018 Musculoskeletal No joint complaint 03/27/2018 Dermatologic No rash 07/2017 Neurologic No alteration of consciousness 03/27/2018 Psychiatric No anxiety 1 Endocrine No dry or coarse skin 03/27/2018 Constitutional fatigue 0 03/19/2018 Constitutional No fever 03/19/2018 Constitutional No insomnia 03/19/2018 Eyes No blindness 2017 Eyes No vision change Ears/Nose/Throat/Neck No dizziness 03/19/2018 Cardiovascular No chest pain/pressure 03/19/2018 Cardiovascular fatigue 0 03/19/2018 Cardiovascular hypertension 03/19/2018 Respiratory No chest congestion 03/19/2018 Respiratory No cough Gastrointestinal No abdominal pain 03/19/2018 Gastrointestinal No constipation 03/19/2018 Gastrointestinal No diarrhea 03/19/2018 Gastrointestinal No nausea 03/19/2018 Gastrointestinal No vomiting 03/19/2018 Genitourinary/Nephrology No dysuria 03/19/2018 Genitourinary/Nephrology urinary inc ontinence 03/19/2018 Musculoskeletal No stiffness 03/19/2018 Musculoskeletal No arthralgia(s) 03/19/2018 Musculoskeletal back pain 03/19/2018 Dermatologic No rash Neurologic No alteration of consciousness 03/19/2018 Neurologic No mental status change 03/19/2018 Psychiatric No anxiety 0 03/19/2018 Psychiatric No depression 03/19/2018 Endocrine diabetes mellitus type 2 03/19/2018 Musculoskeletal joint complaint 03/19/2018 Constitutional No recent illness 01/30/2018 Constitutional fatigue 0 01/30/2018 Constitutional No fever 01/30/2018 Constitutional No insomnia 01/30/2018 Eyes No blindness 2017 Eyes No vision change Ears/Nose/Throat/Neck No dizziness 01/30/2018 Cardiovascular No chest pain/pressure 01/30/2018 Cardiovascular fatigue 0 01/30/2018 Cardiovascular hypertension 01/30/2018 Respiratory No chest congestion 01/30/2018 Respiratory No cough 12/2017 Gastrointestinal No abdominal pain 01/30/2018 Gastrointestinal No constipation 01/30/2018 Gastrointestinal No diarrhea 01/30/2018 Gastrointestinal No nausea 01/30/2018 Gastrointestinal No vomiting 01/30/2018 Musculoskeletal No stiffness 01/30/2018 Musculoskeletal arthralgia(s) 01/30/2018 Musculoskeletal muscle weakness 01/30/2018 Musculoskeletal myalgias 01/30/2018 Dermatologic No rash 12/2017 Neurologic No alteration of consciousness 01/30/2018 Neurologic No mental status change 01/30/2018 Psychiatric No anxiety 0 01/30/2018 Psychiatric No depression 01/30/2018 Constitutional No recent illness 12/26/2017 Constitutional No fever 12/26/2017 Constitutional No insomnia 12/26/2017 Eyes No blindness 2017 Eyes No vision change Ears/Nose/Throat/Neck No dizziness 12/26/2017 Cardiovascular No chest pain/pressure 12/26/2017 Cardiovascular fatigue 0 12/26/2017 Cardiovascular hypertension 12/26/2017 Respiratory No chest congestion 12/26/2017 Respiratory No cough 08/2017 Gastrointestinal No abdominal pain 12/26/2017 Gastrointestinal No constipation 12/26/2017 Gastrointestinal No diarrhea 12/26/2017 Gastrointestinal No nausea 12/26/2017 Gastrointestinal No vomiting 12/26/2017 Musculoskeletal No stiffness 12/26/2017 Musculoskeletal No arthralgia(s) 12/26/2017 Dermatologic No rash 08/2017 Neurologic No alteration of consciousness 12/26/2017 Neurologic No mental status change 12/26/2017 Psychiatric No anxiety 0 12/26/2017 Psychiatric No depression 12/26/2017 Constitutional fatigue 0 12/26/2017 Musculoskeletal myalgias 12/26/2017 Musculoskeletal muscle weakness 12/26/2017 Genitourinary/Nephrology urinary frequency 12/26/2017 Constitutional No recent illness 11/21/2017 Constitutional No chills 11/21/2017 Constitutional No diaphoresis 11/21/2017 Constitutional No fever 11/21/2017 Eyes No eye erythema Ears/Nose/Throat/Neck No nasal discharge 11/21/2017 Ears/Nose/Throat/Neck No nasal allergies 11/21/2017 Cardiovascular No chest pain/pressure 11/21/2017 Cardiovascular No dyspnea 11/21/2017 Cardiovascular No palpitations 11/21/2017 Respiratory No cough Respiratory No chest congestion 11/21/2017 Gastrointestinal No abdominal pain 11/21/2017 Dermatologic No rash Neurologic No alteration of consciousness 11/21/2017 Neurologic No mental status change 11/21/2017 Constitutional fatigue 0 10/19/2017 Constitutional No fever 10/19/2017 Constitutional No insomnia 10/19/2017 Eyes No blindness 2017 Eyes No vision change Ears/Nose/Throat/Neck No dizziness 10/19/2017 Cardiovascular No chest pain/pressure 10/19/2017 Cardiovascular fatigue 0 10/19/2017 Cardiovascular hypertension 10/19/2017 Respiratory No chest congestion 10/19/2017 Respiratory No cough Gastrointestinal No abdominal pain 10/19/2017 Gastrointestinal No constipation 10/19/2017 Gastrointestinal No diarrhea 10/19/2017 Gastrointestinal No nausea 10/19/2017 Gastrointestinal No vomiting 10/19/2017 Musculoskeletal No stiffness 10/19/2017 Musculoskeletal No arthralgia(s) 10/19/2017 Musculoskeletal back pain 10/19/2017 Dermatologic No rash Neurologic No alteration of consciousness 10/19/2017 Neurologic No mental status change 10/19/2017 Psychiatric No anxiety 0 10/19/2017 Psychiatric No depression 10/19/2017 Endocrine diabetes mellitus type 2 10/19/2017 Gastrointestinal gastroesophageal reflux 10/19/2017 Genitourinary/Nephrology No dysuria 10/19/2017 Genitourinary/Nephrology urinary inc ontinence 10/19/2017 Constitutional fatigue 0 09/18/2017 Constitutional No fever 09/18/2017 Constitutional No insomnia 09/18/2017 Eyes No blindness 2017 Eyes No vision change Ears/Nose/Throat/Neck No dizziness 09/18/2017 Cardiovascular No chest pain/pressure 09/18/2017 Cardiovascular fatigue 0 09/18/2017 Cardiovascular hypertension 09/18/2017 Respiratory No chest congestion 09/18/2017 Respiratory No cough Gastrointestinal No abdominal pain 09/18/2017 Gastrointestinal No constipation 09/18/2017 Gastrointestinal No diarrhea 09/18/2017 Gastrointestinal No nausea 09/18/2017 Gastrointestinal No vomiting 09/18/2017 Genitourinary/Nephrology urinary frequency 09/18/2017 Musculoskeletal No stiffness 09/18/2017 Musculoskeletal No arthralgia(s) 09/18/2017 Musculoskeletal back pain 09/18/2017 Dermatologic No rash Neurologic No alteration of consciousness 09/18/2017 Neurologic No mental status change 09/18/2017 Psychiatric No anxiety 0 09/18/2017 Psychiatric No depression 09/18/2017 Endocrine diabetes mellitus type 2 09/18/2017 Constitutional No fever 07/21/2017 Eyes cataract 07/21/2017 Ears/Nose/Throat/Neck No dizziness 07/21/2017 Cardiovascular No chest pain/pressure 07/21/2017 Cardiovascular No syncope 07/21/2017 Respiratory No chest congestion 07/21/2017 Respiratory No cough Respiratory No dyspnea 0 07/21/2017 Gastrointestinal No abdominal pain 07/21/2017 Gastrointestinal No constipation 07/21/2017 Gastrointestinal No diarrhea 07/21/2017 Gastrointestinal No nausea 07/21/2017 Gastrointestinal No vomiting 07/21/2017 Musculoskeletal No stiffness 07/21/2017 Musculoskeletal No swelling 07/21/2017 Musculoskeletal No muscle weakness 07/21/2017 Musculoskeletal No myalgias 07/21/2017 Dermatologic No rash Neurologic No alteration of consciousness 07/21/2017 Neurologic No mental status change 07/21/2017 Psychiatric No anxiety 0 07/21/2017 Constitutional recent illness 07/21/2017 Constitutional No fever 05/04/2017 Eyes cataract 05/04/2017 Ears/Nose/Throat/Neck No dizziness 05/04/2017 Cardiovascular No chest pain/pressure 05/04/2017 Cardiovascular No syncope 05/04/2017 Respiratory No chest congestion 05/04/2017 Respiratory No cough 02/2017 Respiratory No dyspnea 1 07/04/2016 Gastrointestinal No abdominal pain 05/04/2017 Gastrointestinal No constipation 05/04/2017 Gastrointestinal No diarrhea 05/04/2017 Gastrointestinal No nausea 05/04/2017 Gastrointestinal No vomiting 05/04/2017 Dermatologic No rash 02/2017 Neurologic No alteration of consciousness 05/04/2017 Neurologic No mental status change 05/04/2017 Musculoskeletal No stiffness 05/04/2017 Musculoskeletal No swelling 05/04/2017 Musculoskeletal No muscle weakness 05/04/2017 Musculoskeletal No myalgias 05/04/2017 Psychiatric No anxiety 1 07/04/2016 Constitutional recent illness 03/30/2017 Constitutional fatigue 1 Constitutional malaise 1 Cardiovascular exercise intolerance 03/30/2017 Cardiovascular fatigue 1 Respiratory No chest congestion 03/30/2017 Respiratory No chest tightness 03/30/2017 Gastrointestinal No abdominal pain 03/30/2017 Psychiatric No anxiety 1 Psychiatric No depression 03/30/2017 Musculoskeletal stiffness 03/30/2017 Constitutional No fever 03/30/2017 Constitutional No insomnia 03/30/2017 Ears/Nose/Throat/Neck dizziness 03/30/2017 Cardiovascular No chest pain/pressure 03/30/2017 Cardiovascular hypertension 03/30/2017 Respiratory No cough 10/2016 Gastrointestinal No constipation 03/30/2017 Gastrointestinal No diarrhea 03/30/2017 Gastrointestinal No nausea 03/30/2017 Gastrointestinal No vomiting 03/30/2017 Genitourinary/Nephrology urinary frequency 03/30/2017 Musculoskeletal arthralgia(s) 03/30/2017 Musculoskeletal back pain 03/30/2017 Musculoskeletal muscle weakness 03/30/2017 Constitutional No fever 03/02/2017 Constitutional No insomnia 03/02/2017 Eyes No blindness 2016 Eyes No vision change Ears/Nose/Throat/Neck No dizziness 03/02/2017 Cardiovascular No chest pain/pressure 03/02/2017 Cardiovascular fatigue 0 03/02/2017 Cardiovascular hypertension 03/02/2017 Respiratory No chest congestion 03/02/2017 Respiratory No cough 12/2016 Gastrointestinal No abdominal pain 03/02/2017 Gastrointestinal No constipation 03/02/2017 Gastrointestinal No diarrhea 03/02/2017 Gastrointestinal No nausea 03/02/2017 Gastrointestinal No vomiting 03/02/2017 Genitourinary/Nephrology urinary frequency 03/02/2017 Musculoskeletal No stiffness 03/02/2017 Musculoskeletal No arthralgia(s) 03/02/2017 Musculoskeletal back pain 03/02/2017 Dermatologic No rash 12/2016 Neurologic No alteration of consciousness 03/02/2017 Neurologic No mental status change 03/02/2017 Psychiatric No anxiety 0 03/02/2017 Psychiatric No depression 03/02/2017 Constitutional No recent illness 03/02/2017 Constitutional fatigue 0 03/02/2017 Constitutional fatigue 0 01/31/2017 Constitutional No fever 01/31/2017 Constitutional No insomnia 01/31/2017 Eyes No blindness 2016 Eyes No vision change Ears/Nose/Throat/Neck dizziness 01/31/2017 Cardiovascular No chest pain/pressure 01/31/2017 Cardiovascular fatigue 0 01/31/2017 Cardiovascular hypertension 01/31/2017 Respiratory No chest congestion 01/31/2017 Respiratory No cough 01/2017 Gastrointestinal No abdominal pain 01/31/2017 Gastrointestinal No constipation 01/31/2017 Gastrointestinal No diarrhea 01/31/2017 Gastrointestinal No nausea 01/31/2017 Gastrointestinal No vomiting 01/31/2017 Genitourinary/Nephrology urinary frequency 01/31/2017 Musculoskeletal stiffness 01/31/2017 Musculoskeletal arthralgia(s) 01/31/2017 Musculoskeletal back pain 01/31/2017 Dermatologic No rash 01/2017 Neurologic No alteration of consciousness 01/31/2017 Neurologic No mental status change 01/31/2017 Psychiatric No anxiety 0 01/31/2017 Psychiatric No depression 01/31/2017 Musculoskeletal muscle weakness 01/31/2017 Constitutional fatigue 0 10/25/2016 Constitutional No fever 10/25/2016 Constitutional No insomnia 10/25/2016 Eyes No blindness 2016 Eyes No vision change Ears/Nose/Throat/Neck No dizziness 10/25/2016 Cardiovascular No chest pain/pressure 10/25/2016 Cardiovascular fatigue 0 10/25/2016 Cardiovascular hypertension 10/25/2016 Respiratory No chest congestion 10/25/2016 Respiratory No cough 07/2016 Gastrointestinal No abdominal pain 10/25/2016 Gastrointestinal No constipation 10/25/2016 Gastrointestinal No diarrhea 10/25/2016 Gastrointestinal No nausea 10/25/2016 Gastrointestinal No vomiting 10/25/2016 Genitourinary/Nephrology urinary frequency 10/25/2016 Musculoskeletal No stiffness 10/25/2016 Musculoskeletal No arthralgia(s) 10/25/2016 Musculoskeletal back pain 10/25/2016 Dermatologic No rash 07/2016 Neurologic No alteration of consciousness 10/25/2016 Neurologic No mental status change 10/25/2016 Psychiatric No anxiety 0 10/25/2016 Psychiatric No depression 10/25/2016 Constitutional fatigue 0 07/27/2016 Constitutional No fever 07/27/2016 Constitutional No insomnia 07/27/2016 Eyes No blindness 2016 Eyes No vision change Ears/Nose/Throat/Neck No dizziness 07/27/2016 Cardiovascular No chest pain/pressure 07/27/2016 Cardiovascular fatigue 0 07/27/2016 Cardiovascular hypertension 07/27/2016 Respiratory No chest congestion 07/27/2016 Respiratory No cough 06/2016 Gastrointestinal No abdominal pain 07/27/2016 Gastrointestinal No constipation 07/27/2016 Gastrointestinal No diarrhea 07/27/2016 Gastrointestinal No nausea 07/27/2016 Gastrointestinal No vomiting 07/27/2016 Genitourinary/Nephrology urinary frequency 07/27/2016 Musculoskeletal No stiffness 07/27/2016 Musculoskeletal No arthralgia(s) 07/27/2016 Musculoskeletal back pain 07/27/2016 Dermatologic No rash 06/2016 Neurologic No alteration of consciousness 07/27/2016 Neurologic No mental status change 07/27/2016 Psychiatric No anxiety 0 07/27/2016 Psychiatric No depression 07/27/2016 Constitutional fatigue 1 07/27/2015 Constitutional No fever 05/26/2016 Constitutional No insomnia 05/26/2016 Eyes No blindness 2015 Eyes No vision change Ears/Nose/Throat/Neck No dizziness 05/26/2016 Cardiovascular No chest pain/pressure 05/26/2016 Cardiovascular fatigue 1 07/27/2015 Cardiovascular hypertension 05/26/2016 Respiratory No chest congestion 05/26/2016 Respiratory No cough 06/2015 Gastrointestinal No abdominal pain 05/26/2016 Gastrointestinal No constipation 05/26/2016 Gastrointestinal No diarrhea 05/26/2016 Gastrointestinal No nausea 05/26/2016 Gastrointestinal No vomiting 05/26/2016 Genitourinary/Nephrology urinary frequency 05/26/2016 Musculoskeletal No stiffness 05/26/2016 Musculoskeletal No arthralgia(s) 05/26/2016 Musculoskeletal back pain 05/26/2016 Dermatologic No rash 06/2015 Neurologic No alteration of consciousness 05/26/2016 Neurologic No mental status change 05/26/2016 Psychiatric No anxiety 1 07/27/2015 Psychiatric No depression 05/26/2016 Constitutional fatigue 1 07/12/2015 Constitutional No fever 05/12/2016 Constitutional No insomnia 05/12/2016 Eyes No blindness 2015 Eyes No vision change Ears/Nose/Throat/Neck No dizziness 05/12/2016 Cardiovascular No chest pain/pressure 05/12/2016 Cardiovascular fatigue 1 07/12/2015 Cardiovascular hypertension 05/12/2016 Respiratory No chest congestion 05/12/2016 Respiratory No cough Gastrointestinal No abdominal pain 05/12/2016 Gastrointestinal No constipation 05/12/2016 Gastrointestinal No diarrhea 05/12/2016 Gastrointestinal No nausea 05/12/2016 Gastrointestinal No vomiting 05/12/2016 Genitourinary/Nephrology urinary frequency 05/12/2016 Musculoskeletal No stiffness 05/12/2016 Musculoskeletal No arthralgia(s) 05/12/2016 Musculoskeletal back pain 05/12/2016 Dermatologic No rash Neurologic No alteration of consciousness 05/12/2016 Neurologic No mental status change 05/12/2016 Psychiatric No anxiety 1 07/12/2015 Psychiatric No depression 05/12/2016 Constitutional fatigue 0 02/23/2016 Constitutional No fever 02/23/2016 Constitutional No insomnia 02/23/2016 Eyes No blindness 2015 Eyes No vision change Ears/Nose/Throat/Neck No dizziness 02/23/2016 Cardiovascular No chest pain/pressure 02/23/2016 Cardiovascular fatigue 0 02/23/2016 Cardiovascular hypertension 02/23/2016 Respiratory No chest congestion 02/23/2016 Respiratory No cough Gastrointestinal No abdominal pain 02/23/2016 Gastrointestinal No constipation 02/23/2016 Gastrointestinal No diarrhea 02/23/2016 Gastrointestinal No nausea 02/23/2016 Gastrointestinal No vomiting 02/23/2016 Genitourinary/Nephrology urinary frequency 02/23/2016 Musculoskeletal No stiffness 02/23/2016 Musculoskeletal No arthralgia(s) 02/23/2016 Musculoskeletal back pain 02/23/2016 Dermatologic No rash Neurologic No alteration of consciousness 02/23/2016 Neurologic No mental status change 02/23/2016 Psychiatric No anxiety 0 02/23/2016 Psychiatric No depression 02/23/2016 Constitutional fatigue 0 12/10/2015 Constitutional No fever 12/10/2015 Constitutional No insomnia 12/10/2015 Eyes No blindness 2015 Eyes No vision change Ears/Nose/Throat/Neck No dizziness 12/10/2015 Cardiovascular No chest pain/pressure 12/10/2015 Cardiovascular fatigue 0 12/10/2015 Cardiovascular hypertension 12/10/2015 Respiratory No chest congestion 12/10/2015 Respiratory No cough Gastrointestinal No abdominal pain 12/10/2015 Gastrointestinal No constipation 12/10/2015 Gastrointestinal No diarrhea 12/10/2015 Gastrointestinal No nausea 12/10/2015 Gastrointestinal No vomiting 12/10/2015 Genitourinary/Nephrology urinary frequency 12/10/2015 Musculoskeletal No stiffness 12/10/2015 Musculoskeletal No arthralgia(s) 12/10/2015 Musculoskeletal back pain 12/10/2015 Dermatologic No rash Neurologic No alteration of consciousness 12/10/2015 Neurologic No mental status change 12/10/2015 Psychiatric No anxiety 0 12/10/2015 Psychiatric No depression 12/10/2015 Constitutional fatigue 0 11/10/2015 Constitutional No fever 11/10/2015 Constitutional No insomnia 11/10/2015 Eyes No blindness 2015 Eyes No vision change Ears/Nose/Throat/Neck No dizziness 11/10/2015 Cardiovascular No chest pain/pressure 11/10/2015 Cardiovascular fatigue 0 11/10/2015 Cardiovascular hypertension 11/10/2015 Respiratory No chest congestion 11/10/2015 Respiratory No cough Gastrointestinal No abdominal pain 11/10/2015 Gastrointestinal No constipation 11/10/2015 Gastrointestinal No diarrhea 11/10/2015 Gastrointestinal No nausea 11/10/2015 Gastrointestinal No vomiting 11/10/2015 Genitourinary/Nephrology urinary frequency 11/10/2015 Musculoskeletal No stiffness 11/10/2015 Musculoskeletal No arthralgia(s) 11/10/2015 Musculoskeletal back pain 11/10/2015 Dermatologic No rash Neurologic No alteration of consciousness 11/10/2015 Neurologic No mental status change 11/10/2015 Psychiatric No anxiety 0 11/10/2015 Psychiatric No depression 11/10/2015 Constitutional fatigue 0 08/07/2015 Constitutional No fever 08/07/2015 Constitutional No insomnia 08/07/2015 Eyes No blindness 2015 Eyes No vision change Ears/Nose/Throat/Neck No dizziness 08/07/2015 Cardiovascular No chest pain/pressure 08/07/2015 Cardiovascular dyspnea 0 08/07/2015 Cardiovascular edema 05/2016 Cardiovascular fatigue 0 08/07/2015 Cardiovascular hypertension 08/07/2015 Respiratory No chest congestion 08/07/2015 Respiratory No cough 05/2016 Gastrointestinal No abdominal pain 08/07/2015 Gastrointestinal No constipation 08/07/2015 Gastrointestinal No diarrhea 08/07/2015 Gastrointestinal No nausea 08/07/2015 Gastrointestinal No vomiting 08/07/2015 Genitourinary/Nephrology urinary frequency 08/07/2015 Musculoskeletal No stiffness 08/07/2015 Musculoskeletal No arthralgia(s) 08/07/2015 Musculoskeletal back pain 08/07/2015 Dermatologic No rash 05/2016 Neurologic No alteration of consciousness 08/07/2015 Neurologic No mental status change 08/07/2015 Psychiatric No anxiety 0 08/07/2015 Psychiatric No depression 08/07/2015 Constitutional fatigue 0 07/07/2015 Constitutional No fever 07/07/2015 Constitutional No insomnia 07/07/2015 Eyes No blindness 2015 Eyes No vision change Ears/Nose/Throat/Neck No dizziness 07/07/2015 Cardiovascular No chest pain/pressure 07/07/2015 Cardiovascular dyspnea 0 07/07/2015 Cardiovascular edema 05/2016 Cardiovascular fatigue 0 07/07/2015 Cardiovascular hypertension 07/07/2015 Respiratory No chest congestion 07/07/2015 Respiratory No cough 05/2016 Gastrointestinal No abdominal pain 07/07/2015 Gastrointestinal No constipation 07/07/2015 Gastrointestinal No diarrhea 07/07/2015 Gastrointestinal No nausea 07/07/2015 Gastrointestinal No vomiting 07/07/2015 Genitourinary/Nephrology urinary frequency 07/07/2015 Musculoskeletal No stiffness 07/07/2015 Musculoskeletal No arthralgia(s) 07/07/2015 Dermatologic No rash 05/2016 Neurologic No alteration of consciousness 07/07/2015 Neurologic No mental status change 07/07/2015 Psychiatric No anxiety 0 07/07/2015 Psychiatric No depression 07/07/2015 Musculoskeletal back pain 07/07/2015 Constitutional No chills 04/02/2015 Constitutional No fever 04/02/2015 Constitutional fatigue 1 Eyes No eye discharge Ears/Nose/Throat/Neck No nasal allergies 04/02/2015 Constitutional No recent illness 04/02/2015 Cardiovascular No dyspnea 04/02/2015 Cardiovascular fatigue 1 Respiratory No chest congestion 04/02/2015 Respiratory No cough 01/2015 Gastrointestinal dyspepsia 04/02/2015 Gastrointestinal No constipation 04/02/2015 Gastrointestinal No diarrhea 04/02/2015 Gastrointestinal gastroesophageal reflux 04/02/2015 Dermatologic erythema Constitutional fatigue 0 12/23/2014 Constitutional No insomnia 12/23/2014 Ears/Nose/Throat/Neck postnasal drip 12/23/2014 Cardiovascular fatigue 0 12/23/2014 Respiratory No chest congestion 12/23/2014 Respiratory No cough Gastrointestinal No abdominal pain 12/23/2014 Gastrointestinal No constipation 12/23/2014 Gastrointestinal No diarrhea 12/23/2014 Genitourinary/Nephrology urinary frequency 12/23/2014 Constitutional No fever 12/23/2014 Eyes No blindness 2014 Eyes No vision change Ears/Nose/Throat/Neck No dizziness 12/23/2014 Cardiovascular No chest pain/pressure 12/23/2014 Cardiovascular dyspnea 0 12/23/2014 Cardiovascular edema Cardiovascular hypertension 12/23/2014 Gastrointestinal No nausea 12/23/2014 Gastrointestinal No vomiting 12/23/2014 Musculoskeletal No stiffness 12/23/2014 Musculoskeletal No arthralgia(s) 12/23/2014 Dermatologic No rash Neurologic No alteration of consciousness 12/23/2014 Neurologic No mental status change 12/23/2014 Psychiatric No anxiety 0 12/23/2014 Psychiatric No depression 12/23/2014 Constitutional fatigue 0 10/22/2014 Constitutional No insomnia 10/22/2014 Cardiovascular dyspnea 0 10/22/2014 Cardiovascular No chest pain/pressure 10/22/2014 Respiratory No chest congestion 10/22/2014 Respiratory No cough Gastrointestinal No constipation 10/22/2014 Gastrointestinal No diarrhea 10/22/2014 Gastrointestinal No abdominal pain 10/22/2014 Constitutional No fever 10/22/2014 Eyes No blindness 2014 Eyes No vision change Ears/Nose/Throat/Neck No dizziness 10/22/2014 Cardiovascular edema Cardiovascular hypertension 10/22/2014 Gastrointestinal No nausea 10/22/2014 Gastrointestinal No vomiting 10/22/2014 Musculoskeletal No stiffness 10/22/2014 Musculoskeletal No arthralgia(s) 10/22/2014 Dermatologic No rash Neurologic No alteration of consciousness 10/22/2014 Neurologic No mental status change 10/22/2014 Psychiatric No anxiety 0 10/22/2014 Psychiatric No depression 10/22/2014 Constitutional recent illness 09/26/2014 Constitutional No anorexia 09/26/2014 Constitutional No night sweats 09/26/2014 Constitutional chills Constitutional diaphoresis 09/26/2014 Constitutional fatigue 0 09/26/2014 Constitutional fever 08/2014 Constitutional No insomnia 09/26/2014 Constitutional No malaise 09/26/2014 Constitutional No weight loss 09/26/2014 Constitutional No weight gain 09/26/2014 Eyes No eye discharge Eyes No eye erythema 08/2014 Ears/Nose/Throat/Neck No dizziness 09/26/2014 Ears/Nose/Throat/Neck nasal allergies 09/26/2014 Ears/Nose/Throat/Neck nasal discharge 09/26/2014 Ears/Nose/Throat/Neck No otalgia 09/26/2014 Ears/Nose/Throat/Neck sinus congestion 09/26/2014 Ears/Nose/Throat/Neck No sore throat 09/26/2014 Respiratory productive sputum 09/26/2014 Respiratory cough 2014 Gastrointestinal No constipation 09/26/2014 Gastrointestinal No diarrhea 09/26/2014 Genitourinary/Nephrology No dysuria 09/26/2014 Cardiovascular No chest pain/pressure 09/26/2014 Musculoskeletal No joint complaint 09/26/2014 Dermatologic No rash 08/2014 Dermatologic No sores Neurologic No alteration of consciousness 09/26/2014 Constitutional No fever 07/01/2014 Eyes No blindness 2014 Eyes No vision change Ears/Nose/Throat/Neck No dizziness 07/01/2014 Cardiovascular edema 11/2014 Cardiovascular fatigue 0 07/01/2014 Cardiovascular hypertension 07/01/2014 Respiratory No chest congestion 07/01/2014 Respiratory No cough 11/2014 Respiratory No dyspnea 0 07/01/2014 Gastrointestinal No abdominal pain 07/01/2014 Gastrointestinal No constipation 07/01/2014 Gastrointestinal No diarrhea 07/01/2014 Gastrointestinal No nausea 07/01/2014 Gastrointestinal No vomiting 07/01/2014 Musculoskeletal No stiffness 07/01/2014 Musculoskeletal No arthralgia(s) 07/01/2014 Dermatologic No rash 11/2014 Neurologic No alteration of consciousness 07/01/2014 Neurologic No mental status change 07/01/2014 Psychiatric No anxiety 0 07/01/2014 Psychiatric No depression 07/01/2014 Constitutional No fever 06/09/2014 Eyes No blindness 2013 Eyes No vision change Ears/Nose/Throat/Neck No dizziness 06/09/2014 Cardiovascular edema Cardiovascular fatigue 1 08/10/2013 Cardiovascular hypertension 06/09/2014 Respiratory No chest congestion 06/09/2014 Respiratory No cough Respiratory No dyspnea 1 08/10/2013 Gastrointestinal No abdominal pain 06/09/2014 Gastrointestinal No constipation 06/09/2014 Gastrointestinal No diarrhea 06/09/2014 Gastrointestinal No nausea 06/09/2014 Gastrointestinal No vomiting 06/09/2014 Musculoskeletal No stiffness 06/09/2014 Musculoskeletal No arthralgia(s) 06/09/2014 Dermatologic No rash Neurologic No alteration of consciousness 06/09/2014 Neurologic No mental status change 06/09/2014 Psychiatric No anxiety 1 08/10/2013 Psychiatric No depression 06/09/2014 Constitutional No fever 05/07/2014 Eyes No blindness 2013 Eyes No vision change Ears/Nose/Throat/Neck No dizziness 05/07/2014 Respiratory No chest congestion 05/07/2014 Respiratory No cough 05/2014 Respiratory No dyspnea 1 07/07/2013 Gastrointestinal No abdominal pain 05/07/2014 Gastrointestinal No constipation 05/07/2014 Gastrointestinal No diarrhea 05/07/2014 Gastrointestinal No nausea 05/07/2014 Gastrointestinal No vomiting 05/07/2014 Musculoskeletal No stiffness 05/07/2014 Musculoskeletal No arthralgia(s) 05/07/2014 Dermatologic No rash 05/2014 Neurologic No alteration of consciousness 05/07/2014 Neurologic No mental status change 05/07/2014 Cardiovascular hypertension 05/07/2014 Cardiovascular fatigue 1 07/07/2013 Cardiovascular edema 05/2014 Psychiatric No anxiety 1 07/07/2013 Psychiatric No depression 05/07/2014 Eyes No blindness 2013 Eyes No vision change Respiratory No chest congestion 04/21/2014 Respiratory No cough Respiratory No dyspnea 1 Gastrointestinal No abdominal pain 04/21/2014 Gastrointestinal No constipation 04/21/2014 Gastrointestinal No diarrhea 04/21/2014 Gastrointestinal nausea 04/21/2014 Musculoskeletal No stiffness 04/21/2014 Musculoskeletal No arthralgia(s) 04/21/2014 Dermatologic No rash Neurologic No alteration of consciousness 04/21/2014 Neurologic No mental status change 04/21/2014 Constitutional recent illness 04/21/2014 Constitutional fatigue 1 Constitutional fever Constitutional malaise 1 Constitutional weight loss 04/21/2014 Constitutional chills Ears/Nose/Throat/Neck No headache 04/21/2014 Ears/Nose/Throat/Neck No facial weakness 04/21/2014 Ears/Nose/Throat/Neck dizziness 04/21/2014 Cardiovascular No chest pain/pressure 04/21/2014 Cardiovascular dyspnea 1 Cardiovascular edema Cardiovascular fatigue 1 Genitourinary/Nephrology dysuria 04/21/2014 Genitourinary/Nephrology urinary urgency 04/21/2014 Genitourinary/Nephrology urinary frequency 04/21/2014 Psychiatric No anxiety 1 Psychiatric No depression 04/21/2014 Constitutional recent illness 02/14/2014 Constitutional No chills 02/14/2014 Constitutional No fatigue 02/14/2014 Constitutional No fever 02/14/2014 Constitutional No insomnia 02/14/2014 Constitutional No malaise 02/14/2014 Cardiovascular No chest pain/pressure 02/14/2014 Cardiovascular No dyspnea 02/14/2014 Cardiovascular No edema 02/14/2014 Cardiovascular No exercise intolerance 02/14/2014 Cardiovascular No fatigue 02/14/2014 Cardiovascular No near-syncope/dizziness 02/14/2014 Respiratory No chest tightness 02/14/2014 Respiratory No cigarette smoking 02/14/2014 Respiratory No cough Respiratory No dyspnea 0 02/14/2014 Respiratory No pedal edema 02/14/2014 Respiratory No snoring 0 02/14/2014 Respiratory No wheezing 02/14/2014 Musculoskeletal No stiffness 02/14/2014 Musculoskeletal No swelling 02/14/2014 Musculoskeletal No muscle weakness 02/14/2014 Musculoskeletal No myalgias 02/14/2014 Genitourinary/Nephrology No dysuria 02/14/2014 Genitourinary/Nephrology No nocturia 02/14/2014 Genitourinary/Nephrology No urinary incontinence 02/14/2014 Eyes No blindness 2013 Eyes No vision change Ears/Nose/Throat/Neck No dizziness 02/14/2014 Respiratory No chest congestion 02/14/2014 Gastrointestinal No abdominal pain 02/14/2014 Gastrointestinal No constipation 02/14/2014 Gastrointestinal No diarrhea 02/14/2014 Gastrointestinal No nausea 02/14/2014 Gastrointestinal No vomiting 02/14/2014 Musculoskeletal No arthralgia(s) 02/14/2014 Neurologic No alteration of consciousness 02/14/2014 Neurologic No mental status change 02/14/2014 Constitutional No fever 11/14/2013 Eyes No blindness 2013 Eyes No vision change Ears/Nose/Throat/Neck No dizziness 11/14/2013 Respiratory No chest congestion 11/14/2013 Respiratory No cough Respiratory No dyspnea 0 11/14/2013 Gastrointestinal No abdominal pain 11/14/2013 Gastrointestinal No constipation 11/14/2013 Gastrointestinal No diarrhea 11/14/2013 Gastrointestinal No nausea 11/14/2013 Gastrointestinal No vomiting 11/14/2013 Musculoskeletal No stiffness 11/14/2013 Musculoskeletal No arthralgia(s) 11/14/2013 Dermatologic No rash Neurologic No alteration of consciousness 11/14/2013 Neurologic No mental status change 11/14/2013 Constitutional No fever 10/24/2013 Eyes No blindness 2013 Eyes No vision change Ears/Nose/Throat/Neck No dizziness 10/24/2013 Respiratory No chest congestion 10/24/2013 Respiratory No cough 06/2013 Respiratory No dyspnea 0 10/24/2013 Gastrointestinal No abdominal pain 10/24/2013 Gastrointestinal No constipation 10/24/2013 Gastrointestinal No diarrhea 10/24/2013 Gastrointestinal No nausea 10/24/2013 Gastrointestinal No vomiting 10/24/2013 Musculoskeletal No stiffness 10/24/2013 Musculoskeletal No arthralgia(s) 10/24/2013 Dermatologic No rash 06/2013 Neurologic No alteration of consciousness 10/24/2013 Neurologic No mental status change 10/24/2013 Constitutional No fever 06/24/2013 Eyes No blindness 2012 Eyes No vision change Ears/Nose/Throat/Neck No dizziness 06/24/2013 Respiratory No chest congestion 06/24/2013 Respiratory No cough Respiratory No dyspnea 1 Gastrointestinal abdominal pain 06/24/2013 Gastrointestinal No constipation 06/24/2013 Gastrointestinal No diarrhea 06/24/2013 Gastrointestinal gas and bloating 06/24/2013 Gastrointestinal gastroesophageal reflux 06/24/2013 Gastrointestinal No nausea 06/24/2013 Gastrointestinal No vomiting 06/24/2013 Musculoskeletal No stiffness 06/24/2013 Musculoskeletal No arthralgia(s) 06/24/2013 Dermatologic No rash Neurologic No alteration of consciousness 06/24/2013 Neurologic No mental status change 06/24/2013 Constitutional No fever 06/05/2013 Eyes No blindness 2012 Eyes No vision change Ears/Nose/Throat/Neck No dizziness 06/05/2013 Respiratory No chest congestion 06/05/2013 Respiratory No cough 04/2013 Respiratory No dyspnea 1 08/06/2012 Gastrointestinal abdominal pain 06/05/2013 Gastrointestinal No constipation 06/05/2013 Gastrointestinal No diarrhea 06/05/2013 Gastrointestinal No nausea 06/05/2013 Gastrointestinal No vomiting 06/05/2013 Musculoskeletal No stiffness 06/05/2013 Musculoskeletal No arthralgia(s) 06/05/2013 Dermatologic No rash 04/2013 Neurologic No alteration of consciousness 06/05/2013 Neurologic No mental status change 06/05/2013 Gastrointestinal gas and bloating 06/05/2013 Gastrointestinal gastroesophageal reflux 06/05/2013 Constitutional No fever 04/01/2013 Ears/Nose/Throat/Neck No dizziness 04/01/2013 Respiratory No chest congestion 04/01/2013 Respiratory No cough 12/2012 Respiratory No dyspnea 1 Gastrointestinal No abdominal pain 04/01/2013 Gastrointestinal No constipation 04/01/2013 Gastrointestinal No diarrhea 04/01/2013 Gastrointestinal No nausea 04/01/2013 Gastrointestinal No vomiting 04/01/2013 Musculoskeletal No stiffness 04/01/2013 Musculoskeletal No arthralgia(s) 04/01/2013 Dermatologic No rash 12/2012 Neurologic No alteration of consciousness 04/01/2013 Neurologic No mental status change 04/01/2013 Eyes No blindness 2012 Eyes No vision change Constitutional No fever 01/29/2013 Ears/Nose/Throat/Neck No dizziness 01/29/2013 Respiratory No chest congestion 01/29/2013 Respiratory No cough 11/2012 Respiratory No dyspnea 0 01/29/2013 Gastrointestinal No abdominal pain 01/29/2013 Gastrointestinal No constipation 01/29/2013 Gastrointestinal No diarrhea 01/29/2013 Gastrointestinal No nausea 01/29/2013 Gastrointestinal No vomiting 01/29/2013 Musculoskeletal No stiffness 01/29/2013 Musculoskeletal No arthralgia(s) 01/29/2013 Dermatologic No rash 11/2012 Neurologic No alteration of consciousness 01/29/2013 Neurologic No mental status change 01/29/2013 Constitutional No fever 12/25/2012 Ears/Nose/Throat/Neck No dizziness 12/25/2012 Respiratory No chest congestion 12/25/2012 Respiratory No cough 07/2012 Respiratory No dyspnea 0 12/25/2012 Gastrointestinal No abdominal pain 12/25/2012 Gastrointestinal No constipation 12/25/2012 Gastrointestinal No diarrhea 12/25/2012 Gastrointestinal No nausea 12/25/2012 Gastrointestinal No vomiting 12/25/2012 Musculoskeletal No stiffness 12/25/2012 Musculoskeletal No arthralgia(s) 12/25/2012 Dermatologic No rash 07/2012 Neurologic No alteration of consciousness 12/25/2012 Neurologic No mental status change 12/25/2012 Constitutional No fever 10/01/2012 Ears/Nose/Throat/Neck No dizziness 10/01/2012 Respiratory No chest congestion 10/01/2012 Respiratory No cough 01/2013 Respiratory No dyspnea 0 10/01/2012 Gastrointestinal No abdominal pain 10/01/2012 Gastrointestinal No constipation 10/01/2012 Gastrointestinal No diarrhea 10/01/2012 Gastrointestinal No nausea 10/01/2012 Gastrointestinal No vomiting 10/01/2012 Dermatologic No rash 01/2013 Neurologic No alteration of consciousness 10/01/2012 Neurologic No mental status change 10/01/2012 Musculoskeletal No arthralgia(s) 10/01/2012 Musculoskeletal No stiffness 10/01/2012 Gastrointestinal No abdominal pain 06/29/2012 Gastrointestinal No constipation 06/29/2012 Gastrointestinal No diarrhea 06/29/2012 Gastrointestinal No nausea 06/29/2012 Gastrointestinal No vomiting 06/29/2012 Genitourinary/Nephrology No dysuria 06/29/2012 Cardiovascular No chest pain/pressure 06/29/2012 Ears/Nose/Throat/Neck No dizziness 06/29/2012 Ears/Nose/Throat/Neck No headache 06/29/2012 Ears/Nose/Throat/Neck nasal allergies 06/29/2012 Ears/Nose/Throat/Neck nasal discharge 06/29/2012 Ears/Nose/Throat/Neck sinus congestion 06/29/2012 Ears/Nose/Throat/Neck sore throat 06/29/2012 Ears/Nose/Throat/Neck No otalgia 06/29/2012 Eyes No eye discharge Eyes No eye erythema 09/2012 Constitutional No fatigue 06/29/2012 Constitutional recent illness 06/29/2012 Constitutional No night sweats 06/29/2012 Constitutional No anorexia 06/29/2012 Constitutional chills Constitutional diaphoresis 06/29/2012 Constitutional fever 09/2012 Musculoskeletal No joint complaint 06/29/2012 Dermatologic No sores Dermatologic No rash 09/2012 Constitutional recent illness 05/28/2012 Constitutional No chills 05/28/2012 Constitutional No fatigue 05/28/2012 Constitutional fever 08/2011 Constitutional No insomnia 05/28/2012 Constitutional No malaise 05/28/2012 Cardiovascular No chest pain/pressure 05/28/2012 Cardiovascular No dyspnea 05/28/2012 Cardiovascular No edema 05/28/2012 Cardiovascular No exercise intolerance 05/28/2012 Cardiovascular No fatigue 05/28/2012 Cardiovascular No near-syncope/dizziness 05/28/2012 Gastrointestinal No hemorrhoids 05/28/2012 Gastrointestinal No abdominal pain 05/28/2012 Gastrointestinal No constipation 05/28/2012 Gastrointestinal No diarrhea 05/28/2012 Gastrointestinal No gastroesophageal reflu x 05/28/2012 Gastrointestinal No melena 05/28/2012 Gastrointestinal No nausea 05/28/2012 Gastrointestinal No vomiting 05/28/2012 Genitourinary/Nephrology No dysuria 05/28/2012 Genitourinary/Nephrology No nocturia 05/28/2012 Genitourinary/Nephrology No urinary incontinence 05/28/2012 Dermatologic No rash 08/2011 Dermatologic No scar 08/2011 Cardiovascular No syncope 04/02/2012 Constitutional No fever 04/02/2012 Dermatologic No rash 01/2012 Gastrointestinal No abdominal pain 04/02/2012 Neurologic No alteration of consciousness 04/02/2012 Neurologic No mental status change 04/02/2012 Respiratory No chest congestion 04/02/2012 Respiratory No cough 01/2012 Eyes cataract 04/02/2012 Ears/Nose/Throat/Neck No dizziness 04/02/2012 Cardiovascular No chest pain/pressure 04/02/2012 Respiratory No dyspnea 1 Gastrointestinal No constipation 04/02/2012 Gastrointestinal No diarrhea 04/02/2012 Gastrointestinal No nausea 04/02/2012 Gastrointestinal No vomiting 04/02/2012 Constitutional recent illness 01/24/2012 Constitutional No anorexia 01/24/2012 Constitutional No night sweats 01/24/2012 Constitutional No chills 01/24/2012 Constitutional No diaphoresis 01/24/2012 Constitutional No insomnia 01/24/2012 Constitutional No fever 01/24/2012 Constitutional fatigue 0 01/24/2012 Eyes No eye discharge Eyes No eye erythema Cardiovascular No chest pain/pressure 01/24/2012 Gastrointestinal No vomiting 01/24/2012 Gastrointestinal No nausea 01/24/2012 Gastrointestinal No abdominal pain 01/24/2012 Gastrointestinal No constipation 01/24/2012 Gastrointestinal No diarrhea 01/24/2012 Genitourinary/Nephrology No dysuria 01/24/2012 Musculoskeletal No joint complaint 01/24/2012 Dermatologic No rash Dermatologic No sores Constitutional No fever 10/03/2011 Eyes cataract 10/03/2011 Ears/Nose/Throat/Neck No dizziness 10/03/2011 Cardiovascular No chest pain/pressure 10/03/2011 Respiratory No dyspnea 0 10/03/2011 Gastrointestinal No vomiting 10/03/2011 Gastrointestinal No nausea 10/03/2011 Gastrointestinal No diarrhea 10/03/2011 Gastrointestinal No constipation 10/03/2011 Cardiovascular No syncope 10/03/2011 Respiratory No chest congestion 10/03/2011 Respiratory No cough 02/2012 Gastrointestinal No abdominal pain 10/03/2011 Dermatologic No rash 02/2012 Neurologic No alteration of consciousness 10/03/2011 Neurologic No mental status change 10/03/2011 Constitutional No fever 05/30/2011 Constitutional No chills 05/30/2011 Constitutional No fatigue 05/30/2011 Cardiovascular No chest pain/pressure 05/30/2011 Gastrointestinal No nausea 05/30/2011 Gastrointestinal No vomiting 05/30/2011 Dermatologic No rash 10/2010 Dermatologic No sores Musculoskeletal No stiffness 05/30/2011 Musculoskeletal No arthralgia(s) 05/30/2011 System Result Effective Dates Constitutional fatigue 0 10/25/2016 Constitutional No fever 10/25/2016 Constitutional No insomnia 10/25/2016 Eyes No blindness 2016 Eyes No vision change Ears/Nose/Throat/Neck No dizziness 10/25/2016 Cardiovascular No chest pain/pressure 10/25/2016 Cardiovascular fatigue 0 10/25/2016 Cardiovascular hypertension 10/25/2016 Respiratory No chest congestion 10/25/2016 Respiratory No cough 07/2016 Gastrointestinal No abdominal pain 10/25/2016 Gastrointestinal No constipation 10/25/2016 Gastrointestinal No diarrhea 10/25/2016 Gastrointestinal No nausea 10/25/2016 Gastrointestinal No vomiting 10/25/2016 Genitourinary/Nephrology urinary frequency 10/25/2016 Musculoskeletal No stiffness 10/25/2016 Musculoskeletal No arthralgia(s) 10/25/2016 Musculoskeletal back pain 10/25/2016 Dermatologic No rash 07/2016 Neurologic No alteration of consciousness 10/25/2016 Neurologic No mental status change 10/25/2016 Psychiatric No anxiety 0 10/25/2016 Psychiatric No depression 10/25/2016 Constitutional fatigue 0 07/27/2016 Constitutional No fever 07/27/2016 Constitutional No insomnia 07/27/2016 Eyes No blindness 2016 Eyes No vision change Ears/Nose/Throat/Neck No dizziness 07/27/2016 Cardiovascular No chest pain/pressure 07/27/2016 Cardiovascular fatigue 0 07/27/2016 Cardiovascular hypertension 07/27/2016 Respiratory No chest congestion 07/27/2016 Respiratory No cough 06/2016 Gastrointestinal No abdominal pain 07/27/2016 Gastrointestinal No constipation 07/27/2016 Gastrointestinal No diarrhea 07/27/2016 Gastrointestinal No nausea 07/27/2016 Gastrointestinal No vomiting 07/27/2016 Genitourinary/Nephrology urinary frequency 07/27/2016 Musculoskeletal No stiffness 07/27/2016 Musculoskeletal No arthralgia(s) 07/27/2016 Musculoskeletal back pain 07/27/2016 Dermatologic No rash 06/2016 Neurologic No alteration of consciousness 07/27/2016 Neurologic No mental status change 07/27/2016 Psychiatric No anxiety 0 07/27/2016 Psychiatric No depression 07/27/2016 Constitutional fatigue 1 07/27/2015 Constitutional No fever 05/26/2016 Constitutional No insomnia 05/26/2016 Eyes No blindness 2015 Eyes No vision change Ears/Nose/Throat/Neck No dizziness 05/26/2016 Cardiovascular No chest pain/pressure 05/26/2016 Cardiovascular fatigue 1 07/27/2015 Cardiovascular hypertension 05/26/2016 Respiratory No chest congestion 05/26/2016 Respiratory No cough 06/2015 Gastrointestinal No abdominal pain 05/26/2016 Gastrointestinal No constipation 05/26/2016 Gastrointestinal No diarrhea 05/26/2016 Gastrointestinal No nausea 05/26/2016 Gastrointestinal No vomiting 05/26/2016 Genitourinary/Nephrology urinary frequency 05/26/2016 Musculoskeletal No stiffness 05/26/2016 Musculoskeletal No arthralgia(s) 05/26/2016 Musculoskeletal back pain 05/26/2016 Dermatologic No rash 06/2015 Neurologic No alteration of consciousness 05/26/2016 Neurologic No mental status change 05/26/2016 Psychiatric No anxiety 1 07/27/2015 Psychiatric No depression 05/26/2016 Constitutional fatigue 1 07/12/2015 Constitutional No fever 05/12/2016 Constitutional No insomnia 05/12/2016 Eyes No blindness 2015 Eyes No vision change Ears/Nose/Throat/Neck No dizziness 05/12/2016 Cardiovascular No chest pain/pressure 05/12/2016 Cardiovascular fatigue 1 07/12/2015 Cardiovascular hypertension 05/12/2016 Respiratory No chest congestion 05/12/2016 Respiratory No cough Gastrointestinal No abdominal pain 05/12/2016 Gastrointestinal No constipation 05/12/2016 Gastrointestinal No diarrhea 05/12/2016 Gastrointestinal No nausea 05/12/2016 Gastrointestinal No vomiting 05/12/2016 Genitourinary/Nephrology urinary frequency 05/12/2016 Musculoskeletal No stiffness 05/12/2016 Musculoskeletal No arthralgia(s) 05/12/2016 Musculoskeletal back pain 05/12/2016 Dermatologic No rash Neurologic No alteration of consciousness 05/12/2016 Neurologic No mental status change 05/12/2016 Psychiatric No anxiety 1 07/12/2015 Psychiatric No depression 05/12/2016 Constitutional fatigue 0 02/23/2016 Constitutional No fever 02/23/2016 Constitutional No insomnia 02/23/2016 Eyes No blindness 2015 Eyes No vision change Ears/Nose/Throat/Neck No dizziness 02/23/2016 Cardiovascular No chest pain/pressure 02/23/2016 Cardiovascular fatigue 0 02/23/2016 Cardiovascular hypertension 02/23/2016 Respiratory No chest congestion 02/23/2016 Respiratory No cough Gastrointestinal No abdominal pain 02/23/2016 Gastrointestinal No constipation 02/23/2016 Gastrointestinal No diarrhea 02/23/2016 Gastrointestinal No nausea 02/23/2016 Gastrointestinal No vomiting 02/23/2016 Genitourinary/Nephrology urinary frequency 02/23/2016 Musculoskeletal No stiffness 02/23/2016 Musculoskeletal No arthralgia(s) 02/23/2016 Musculoskeletal back pain 02/23/2016 Dermatologic No rash Neurologic No alteration of consciousness 02/23/2016 Neurologic No mental status change 02/23/2016 Psychiatric No anxiety 0 02/23/2016 Psychiatric No depression 02/23/2016 Constitutional fatigue 0 12/10/2015 Constitutional No fever 12/10/2015 Constitutional No insomnia 12/10/2015 Eyes No blindness 2015 Eyes No vision change Ears/Nose/Throat/Neck No dizziness 12/10/2015 Cardiovascular No chest pain/pressure 12/10/2015 Cardiovascular fatigue 0 12/10/2015 Cardiovascular hypertension 12/10/2015 Respiratory No chest congestion 12/10/2015 Respiratory No cough Gastrointestinal No abdominal pain 12/10/2015 Gastrointestinal No constipation 12/10/2015 Gastrointestinal No diarrhea 12/10/2015 Gastrointestinal No nausea 12/10/2015 Gastrointestinal No vomiting 12/10/2015 Genitourinary/Nephrology urinary frequency 12/10/2015 Musculoskeletal No stiffness 12/10/2015 Musculoskeletal No arthralgia(s) 12/10/2015 Musculoskeletal back pain 12/10/2015 Dermatologic No rash Neurologic No alteration of consciousness 12/10/2015 Neurologic No mental status change 12/10/2015 Psychiatric No anxiety 0 12/10/2015 Psychiatric No depression 12/10/2015 Constitutional fatigue 0 11/10/2015 Constitutional No fever 11/10/2015 Constitutional No insomnia 11/10/2015 Eyes No blindness 2015 Eyes No vision change Ears/Nose/Throat/Neck No dizziness 11/10/2015 Cardiovascular No chest pain/pressure 11/10/2015 Cardiovascular fatigue 0 11/10/2015 Cardiovascular hypertension 11/10/2015 Respiratory No chest congestion 11/10/2015 Respiratory No cough Gastrointestinal No abdominal pain 11/10/2015 Gastrointestinal No constipation 11/10/2015 Gastrointestinal No diarrhea 11/10/2015 Gastrointestinal No nausea 11/10/2015 Gastrointestinal No vomiting 11/10/2015 Genitourinary/Nephrology urinary frequency 11/10/2015 Musculoskeletal No stiffness 11/10/2015 Musculoskeletal No arthralgia(s) 11/10/2015 Musculoskeletal back pain 11/10/2015 Dermatologic No rash Neurologic No alteration of consciousness 11/10/2015 Neurologic No mental status change 11/10/2015 Psychiatric No anxiety 0 11/10/2015 Psychiatric No depression 11/10/2015 Constitutional fatigue 0 08/07/2015 Constitutional No fever 08/07/2015 Constitutional No insomnia 08/07/2015 Eyes No blindness 2015 Eyes No vision change Ears/Nose/Throat/Neck No dizziness 08/07/2015 Cardiovascular No chest pain/pressure 08/07/2015 Cardiovascular dyspnea 0 08/07/2015 Cardiovascular edema 05/2016 Cardiovascular fatigue 0 08/07/2015 Cardiovascular hypertension 08/07/2015 Respiratory No chest congestion 08/07/2015 Respiratory No cough 05/2016 Gastrointestinal No abdominal pain 08/07/2015 Gastrointestinal No constipation 08/07/2015 Gastrointestinal No diarrhea 08/07/2015 Gastrointestinal No nausea 08/07/2015 Gastrointestinal No vomiting 08/07/2015 Genitourinary/Nephrology urinary frequency 08/07/2015 Musculoskeletal No stiffness 08/07/2015 Musculoskeletal No arthralgia(s) 08/07/2015 Musculoskeletal back pain 08/07/2015 Dermatologic No rash 05/2016 Neurologic No alteration of consciousness 08/07/2015 Neurologic No mental status change 08/07/2015 Psychiatric No anxiety 0 08/07/2015 Psychiatric No depression 08/07/2015 Constitutional fatigue 0 07/07/2015 Constitutional No fever 07/07/2015 Constitutional No insomnia 07/07/2015 Eyes No blindness 2015 Eyes No vision change Ears/Nose/Throat/Neck No dizziness 07/07/2015 Cardiovascular No chest pain/pressure 07/07/2015 Cardiovascular dyspnea 0 07/07/2015 Cardiovascular edema 05/2016 Cardiovascular fatigue 0 07/07/2015 Cardiovascular hypertension 07/07/2015 Respiratory No chest congestion 07/07/2015 Respiratory No cough 05/2016 Gastrointestinal No abdominal pain 07/07/2015 Gastrointestinal No constipation 07/07/2015 Gastrointestinal No diarrhea 07/07/2015 Gastrointestinal No nausea 07/07/2015 Gastrointestinal No vomiting 07/07/2015 Genitourinary/Nephrology urinary frequency 07/07/2015 Musculoskeletal No stiffness 07/07/2015 Musculoskeletal No arthralgia(s) 07/07/2015 Dermatologic No rash 05/2016 Neurologic No alteration of consciousness 07/07/2015 Neurologic No mental status change 07/07/2015 Psychiatric No anxiety 0 07/07/2015 Psychiatric No depression 07/07/2015 Musculoskeletal back pain 07/07/2015 Constitutional No chills 04/02/2015 Constitutional No fever 04/02/2015 Constitutional fatigue 1 Eyes No eye discharge Ears/Nose/Throat/Neck No nasal allergies 04/02/2015 Constitutional No recent illness 04/02/2015 Cardiovascular No dyspnea 04/02/2015 Cardiovascular fatigue 1 Respiratory No chest congestion 04/02/2015 Respiratory No cough 01/2015 Gastrointestinal dyspepsia 04/02/2015 Gastrointestinal No constipation 04/02/2015 Gastrointestinal No diarrhea 04/02/2015 Gastrointestinal gastroesophageal reflux 04/02/2015 Dermatologic erythema Constitutional fatigue 0 12/23/2014 Constitutional No insomnia 12/23/2014 Ears/Nose/Throat/Neck postnasal drip 12/23/2014 Cardiovascular fatigue 0 12/23/2014 Respiratory No chest congestion 12/23/2014 Respiratory No cough Gastrointestinal No abdominal pain 12/23/2014 Gastrointestinal No constipation 12/23/2014 Gastrointestinal No diarrhea 12/23/2014 Genitourinary/Nephrology urinary frequency 12/23/2014 Constitutional No fever 12/23/2014 Eyes No blindness 2014 Eyes No vision change Ears/Nose/Throat/Neck No dizziness 12/23/2014 Cardiovascular No chest pain/pressure 12/23/2014 Cardiovascular dyspnea 0 12/23/2014 Cardiovascular edema Cardiovascular hypertension 12/23/2014 Gastrointestinal No nausea 12/23/2014 Gastrointestinal No vomiting 12/23/2014 Musculoskeletal No stiffness 12/23/2014 Musculoskeletal No arthralgia(s) 12/23/2014 Dermatologic No rash Neurologic No alteration of consciousness 12/23/2014 Neurologic No mental status change 12/23/2014 Psychiatric No anxiety 0 12/23/2014 Psychiatric No depression 12/23/2014 Constitutional fatigue 0 10/22/2014 Constitutional No insomnia 10/22/2014 Cardiovascular dyspnea 0 10/22/2014 Cardiovascular No chest pain/pressure 10/22/2014 Respiratory No chest congestion 10/22/2014 Respiratory No cough Gastrointestinal No constipation 10/22/2014 Gastrointestinal No diarrhea 10/22/2014 Gastrointestinal No abdominal pain 10/22/2014 Constitutional No fever 10/22/2014 Eyes No blindness 2014 Eyes No vision change Ears/Nose/Throat/Neck No dizziness 10/22/2014 Cardiovascular edema Cardiovascular hypertension 10/22/2014 Gastrointestinal No nausea 10/22/2014 Gastrointestinal No vomiting 10/22/2014 Musculoskeletal No stiffness 10/22/2014 Musculoskeletal No arthralgia(s) 10/22/2014 Dermatologic No rash Neurologic No alteration of consciousness 10/22/2014 Neurologic No mental status change 10/22/2014 Psychiatric No anxiety 0 10/22/2014 Psychiatric No depression 10/22/2014 Constitutional recent illness 09/26/2014 Constitutional No anorexia 09/26/2014 Constitutional No night sweats 09/26/2014 Constitutional chills Constitutional diaphoresis 09/26/2014 Constitutional fatigue 0 09/26/2014 Constitutional fever 08/2014 Constitutional No insomnia 09/26/2014 Constitutional No malaise 09/26/2014 Constitutional No weight loss 09/26/2014 Constitutional No weight gain 09/26/2014 Eyes No eye discharge Eyes No eye erythema 08/2014 Ears/Nose/Throat/Neck No dizziness 09/26/2014 Ears/Nose/Throat/Neck nasal allergies 09/26/2014 Ears/Nose/Throat/Neck nasal discharge 09/26/2014 Ears/Nose/Throat/Neck No otalgia 09/26/2014 Ears/Nose/Throat/Neck sinus congestion 09/26/2014 Ears/Nose/Throat/Neck No sore throat 09/26/2014 Respiratory productive sputum 09/26/2014 Respiratory cough 2014 Gastrointestinal No constipation 09/26/2014 Gastrointestinal No diarrhea 09/26/2014 Genitourinary/Nephrology No dysuria 09/26/2014 Cardiovascular No chest pain/pressure 09/26/2014 Musculoskeletal No joint complaint 09/26/2014 Dermatologic No rash 08/2014 Dermatologic No sores Neurologic No alteration of consciousness 09/26/2014 Constitutional No fever 07/01/2014 Eyes No blindness 2014 Eyes No vision change Ears/Nose/Throat/Neck No dizziness 07/01/2014 Cardiovascular edema 11/2014 Cardiovascular fatigue 0 07/01/2014 Cardiovascular hypertension 07/01/2014 Respiratory No chest congestion 07/01/2014 Respiratory No cough 11/2014 Respiratory No dyspnea 0 07/01/2014 Gastrointestinal No abdominal pain 07/01/2014 Gastrointestinal No constipation 07/01/2014 Gastrointestinal No diarrhea 07/01/2014 Gastrointestinal No nausea 07/01/2014 Gastrointestinal No vomiting 07/01/2014 Musculoskeletal No stiffness 07/01/2014 Musculoskeletal No arthralgia(s) 07/01/2014 Dermatologic No rash 11/2014 Neurologic No alteration of consciousness 07/01/2014 Neurologic No mental status change 07/01/2014 Psychiatric No anxiety 0 07/01/2014 Psychiatric No depression 07/01/2014 Constitutional No fever 06/09/2014 Eyes No blindness 2013 Eyes No vision change Ears/Nose/Throat/Neck No dizziness 06/09/2014 Cardiovascular edema Cardiovascular fatigue 1 08/10/2013 Cardiovascular hypertension 06/09/2014 Respiratory No chest congestion 06/09/2014 Respiratory No cough Respiratory No dyspnea 1 08/10/2013 Gastrointestinal No abdominal pain 06/09/2014 Gastrointestinal No constipation 06/09/2014 Gastrointestinal No diarrhea 06/09/2014 Gastrointestinal No nausea 06/09/2014 Gastrointestinal No vomiting 06/09/2014 Musculoskeletal No stiffness 06/09/2014 Musculoskeletal No arthralgia(s) 06/09/2014 Dermatologic No rash Neurologic No alteration of consciousness 06/09/2014 Neurologic No mental status change 06/09/2014 Psychiatric No anxiety 1 08/10/2013 Psychiatric No depression 06/09/2014 Constitutional No fever 05/07/2014 Eyes No blindness 2013 Eyes No vision change Ears/Nose/Throat/Neck No dizziness 05/07/2014 Respiratory No chest congestion 05/07/2014 Respiratory No cough 05/2014 Respiratory No dyspnea 1 07/07/2013 Gastrointestinal No abdominal pain 05/07/2014 Gastrointestinal No constipation 05/07/2014 Gastrointestinal No diarrhea 05/07/2014 Gastrointestinal No nausea 05/07/2014 Gastrointestinal No vomiting 05/07/2014 Musculoskeletal No stiffness 05/07/2014 Musculoskeletal No arthralgia(s) 05/07/2014 Dermatologic No rash 05/2014 Neurologic No alteration of consciousness 05/07/2014 Neurologic No mental status change 05/07/2014 Cardiovascular hypertension 05/07/2014 Cardiovascular fatigue 1 07/07/2013 Cardiovascular edema 05/2014 Psychiatric No anxiety 1 07/07/2013 Psychiatric No depression 05/07/2014 Eyes No blindness 2013 Eyes No vision change Respiratory No chest congestion 04/21/2014 Respiratory No cough Respiratory No dyspnea 1 Gastrointestinal No abdominal pain 04/21/2014 Gastrointestinal No constipation 04/21/2014 Gastrointestinal No diarrhea 04/21/2014 Gastrointestinal nausea 04/21/2014 Musculoskeletal No stiffness 04/21/2014 Musculoskeletal No arthralgia(s) 04/21/2014 Dermatologic No rash Neurologic No alteration of consciousness 04/21/2014 Neurologic No mental status change 04/21/2014 Constitutional recent illness 04/21/2014 Constitutional fatigue 1 Constitutional fever Constitutional malaise 1 Constitutional weight loss 04/21/2014 Constitutional chills Ears/Nose/Throat/Neck No headache 04/21/2014 Ears/Nose/Throat/Neck No facial weakness 04/21/2014 Ears/Nose/Throat/Neck dizziness 04/21/2014 Cardiovascular No chest pain/pressure 04/21/2014 Cardiovascular dyspnea 1 Cardiovascular edema Cardiovascular fatigue 1 Genitourinary/Nephrology dysuria 04/21/2014 Genitourinary/Nephrology urinary urgency 04/21/2014 Genitourinary/Nephrology urinary frequency 04/21/2014 Psychiatric No anxiety 1 Psychiatric No depression 04/21/2014 Constitutional recent illness 02/14/2014 Constitutional No chills 02/14/2014 Constitutional No fatigue 02/14/2014 Constitutional No fever 02/14/2014 Constitutional No insomnia 02/14/2014 Constitutional No malaise 02/14/2014 Cardiovascular No chest pain/pressure 02/14/2014 Cardiovascular No dyspnea 02/14/2014 Cardiovascular No edema 02/14/2014 Cardiovascular No exercise intolerance 02/14/2014 Cardiovascular No fatigue 02/14/2014 Cardiovascular No near-syncope/dizziness 02/14/2014 Respiratory No chest tightness 02/14/2014 Respiratory No cigarette smoking 02/14/2014 Respiratory No cough Respiratory No dyspnea 0 02/14/2014 Respiratory No pedal edema 02/14/2014 Respiratory No snoring 0 02/14/2014 Respiratory No wheezing 02/14/2014 Musculoskeletal No stiffness 02/14/2014 Musculoskeletal No swelling 02/14/2014 Musculoskeletal No muscle weakness 02/14/2014 Musculoskeletal No myalgias 02/14/2014 Genitourinary/Nephrology No dysuria 02/14/2014 Genitourinary/Nephrology No nocturia 02/14/2014 Genitourinary/Nephrology No urinary incontinence 02/14/2014 Eyes No blindness 2013 Eyes No vision change Ears/Nose/Throat/Neck No dizziness 02/14/2014 Respiratory No chest congestion 02/14/2014 Gastrointestinal No abdominal pain 02/14/2014 Gastrointestinal No constipation 02/14/2014 Gastrointestinal No diarrhea 02/14/2014 Gastrointestinal No nausea 02/14/2014 Gastrointestinal No vomiting 02/14/2014 Musculoskeletal No arthralgia(s) 02/14/2014 Neurologic No alteration of consciousness 02/14/2014 Neurologic No mental status change 02/14/2014 Constitutional No fever 11/14/2013 Eyes No blindness 2013 Eyes No vision change Ears/Nose/Throat/Neck No dizziness 11/14/2013 Respiratory No chest congestion 11/14/2013 Respiratory No cough Respiratory No dyspnea 0 11/14/2013 Gastrointestinal No abdominal pain 11/14/2013 Gastrointestinal No constipation 11/14/2013 Gastrointestinal No diarrhea 11/14/2013 Gastrointestinal No nausea 11/14/2013 Gastrointestinal No vomiting 11/14/2013 Musculoskeletal No stiffness 11/14/2013 Musculoskeletal No arthralgia(s) 11/14/2013 Dermatologic No rash Neurologic No alteration of consciousness 11/14/2013 Neurologic No mental status change 11/14/2013 Constitutional No fever 10/24/2013 Eyes No blindness 2013 Eyes No vision change Ears/Nose/Throat/Neck No dizziness 10/24/2013 Respiratory No chest congestion 10/24/2013 Respiratory No cough 06/2013 Respiratory No dyspnea 0 10/24/2013 Gastrointestinal No abdominal pain 10/24/2013 Gastrointestinal No constipation 10/24/2013 Gastrointestinal No diarrhea 10/24/2013 Gastrointestinal No nausea 10/24/2013 Gastrointestinal No vomiting 10/24/2013 Musculoskeletal No stiffness 10/24/2013 Musculoskeletal No arthralgia(s) 10/24/2013 Dermatologic No rash 06/2013 Neurologic No alteration of consciousness 10/24/2013 Neurologic No mental status change 10/24/2013 Constitutional No fever 06/24/2013 Eyes No blindness 2012 Eyes No vision change Ears/Nose/Throat/Neck No dizziness 06/24/2013 Respiratory No chest congestion 06/24/2013 Respiratory No cough Respiratory No dyspnea 1 Gastrointestinal abdominal pain 06/24/2013 Gastrointestinal No constipation 06/24/2013 Gastrointestinal No diarrhea 06/24/2013 Gastrointestinal gas and bloating 06/24/2013 Gastrointestinal gastroesophageal reflux 06/24/2013 Gastrointestinal No nausea 06/24/2013 Gastrointestinal No vomiting 06/24/2013 Musculoskeletal No stiffness 06/24/2013 Musculoskeletal No arthralgia(s) 06/24/2013 Dermatologic No rash Neurologic No alteration of consciousness 06/24/2013 Neurologic No mental status change 06/24/2013 Constitutional No fever 06/05/2013 Eyes No blindness 2012 Eyes No vision change Ears/Nose/Throat/Neck No dizziness 06/05/2013 Respiratory No chest congestion 06/05/2013 Respiratory No cough 04/2013 Respiratory No dyspnea 1 08/06/2012 Gastrointestinal abdominal pain 06/05/2013 Gastrointestinal No constipation 06/05/2013 Gastrointestinal No diarrhea 06/05/2013 Gastrointestinal No nausea 06/05/2013 Gastrointestinal No vomiting 06/05/2013 Musculoskeletal No stiffness 06/05/2013 Musculoskeletal No arthralgia(s) 06/05/2013 Dermatologic No rash 04/2013 Neurologic No alteration of consciousness 06/05/2013 Neurologic No mental status change 06/05/2013 Gastrointestinal gas and bloating 06/05/2013 Gastrointestinal gastroesophageal reflux 06/05/2013 Constitutional No fever 04/01/2013 Ears/Nose/Throat/Neck No dizziness 04/01/2013 Respiratory No chest congestion 04/01/2013 Respiratory No cough 12/2012 Respiratory No dyspnea 1 Gastrointestinal No abdominal pain 04/01/2013 Gastrointestinal No constipation 04/01/2013 Gastrointestinal No diarrhea 04/01/2013 Gastrointestinal No nausea 04/01/2013 Gastrointestinal No vomiting 04/01/2013 Musculoskeletal No stiffness 04/01/2013 Musculoskeletal No arthralgia(s) 04/01/2013 Dermatologic No rash 12/2012 Neurologic No alteration of consciousness 04/01/2013 Neurologic No mental status change 04/01/2013 Eyes No blindness 2012 Eyes No vision change Constitutional No fever 01/29/2013 Ears/Nose/Throat/Neck No dizziness 01/29/2013 Respiratory No chest congestion 01/29/2013 Respiratory No cough 11/2012 Respiratory No dyspnea 0 01/29/2013 Gastrointestinal No abdominal pain 01/29/2013 Gastrointestinal No constipation 01/29/2013 Gastrointestinal No diarrhea 01/29/2013 Gastrointestinal No nausea 01/29/2013 Gastrointestinal No vomiting 01/29/2013 Musculoskeletal No stiffness 01/29/2013 Musculoskeletal No arthralgia(s) 01/29/2013 Dermatologic No rash 11/2012 Neurologic No alteration of consciousness 01/29/2013 Neurologic No mental status change 01/29/2013 Constitutional No fever 12/25/2012 Ears/Nose/Throat/Neck No dizziness 12/25/2012 Respiratory No chest congestion 12/25/2012 Respiratory No cough 07/2012 Respiratory No dyspnea 0 12/25/2012 Gastrointestinal No abdominal pain 12/25/2012 Gastrointestinal No constipation 12/25/2012 Gastrointestinal No diarrhea 12/25/2012 Gastrointestinal No nausea 12/25/2012 Gastrointestinal No vomiting 12/25/2012 Musculoskeletal No stiffness 12/25/2012 Musculoskeletal No arthralgia(s) 12/25/2012 Dermatologic No rash 07/2012 Neurologic No alteration of consciousness 12/25/2012 Neurologic No mental status change 12/25/2012 Constitutional No fever 10/01/2012 Ears/Nose/Throat/Neck No dizziness 10/01/2012 Respiratory No chest congestion 10/01/2012 Respiratory No cough 01/2013 Respiratory No dyspnea 0 10/01/2012 Gastrointestinal No abdominal pain 10/01/2012 Gastrointestinal No constipation 10/01/2012 Gastrointestinal No diarrhea 10/01/2012 Gastrointestinal No nausea 10/01/2012 Gastrointestinal No vomiting 10/01/2012 Dermatologic No rash 01/2013 Neurologic No alteration of consciousness 10/01/2012 Neurologic No mental status change 10/01/2012 Musculoskeletal No arthralgia(s) 10/01/2012 Musculoskeletal No stiffness 10/01/2012 Gastrointestinal No abdominal pain 06/29/2012 Gastrointestinal No constipation 06/29/2012 Gastrointestinal No diarrhea 06/29/2012 Gastrointestinal No nausea 06/29/2012 Gastrointestinal No vomiting 06/29/2012 Genitourinary/Nephrology No dysuria 06/29/2012 Cardiovascular No chest pain/pressure 06/29/2012 Ears/Nose/Throat/Neck No dizziness 06/29/2012 Ears/Nose/Throat/Neck No headache 06/29/2012 Ears/Nose/Throat/Neck nasal allergies 06/29/2012 Ears/Nose/Throat/Neck nasal discharge 06/29/2012 Ears/Nose/Throat/Neck sinus congestion 06/29/2012 Ears/Nose/Throat/Neck sore throat 06/29/2012 Ears/Nose/Throat/Neck No otalgia 06/29/2012 Eyes No eye discharge Eyes No eye erythema 09/2012 Constitutional No fatigue 06/29/2012 Constitutional recent illness 06/29/2012 Constitutional No night sweats 06/29/2012 Constitutional No anorexia 06/29/2012 Constitutional chills Constitutional diaphoresis 06/29/2012 Constitutional fever 09/2012 Musculoskeletal No joint complaint 06/29/2012 Dermatologic No sores Dermatologic No rash 09/2012 Constitutional recent illness 05/28/2012 Constitutional No chills 05/28/2012 Constitutional No fatigue 05/28/2012 Constitutional fever 08/2011 Constitutional No insomnia 05/28/2012 Constitutional No malaise 05/28/2012 Cardiovascular No chest pain/pressure 05/28/2012 Cardiovascular No dyspnea 05/28/2012 Cardiovascular No edema 05/28/2012 Cardiovascular No exercise intolerance 05/28/2012 Cardiovascular No fatigue 05/28/2012 Cardiovascular No near-syncope/dizziness 05/28/2012 Gastrointestinal No hemorrhoids 05/28/2012 Gastrointestinal No abdominal pain 05/28/2012 Gastrointestinal No constipation 05/28/2012 Gastrointestinal No diarrhea 05/28/2012 Gastrointestinal No gastroesophageal reflu x 05/28/2012 Gastrointestinal No melena 05/28/2012 Gastrointestinal No nausea 05/28/2012 Gastrointestinal No vomiting 05/28/2012 Genitourinary/Nephrology No dysuria 05/28/2012 Genitourinary/Nephrology No nocturia 05/28/2012 Genitourinary/Nephrology No urinary incontinence 05/28/2012 Dermatologic No rash 08/2011 Dermatologic No scar 08/2011 Cardiovascular No syncope 04/02/2012 Constitutional No fever 04/02/2012 Dermatologic No rash 01/2012 Gastrointestinal No abdominal pain 04/02/2012 Neurologic No alteration of consciousness 04/02/2012 Neurologic No mental status change 04/02/2012 Respiratory No chest congestion 04/02/2012 Respiratory No cough 01/2012 Eyes cataract 04/02/2012 Ears/Nose/Throat/Neck No dizziness 04/02/2012 Cardiovascular No chest pain/pressure 04/02/2012 Respiratory No dyspnea 1 Gastrointestinal No constipation 04/02/2012 Gastrointestinal No diarrhea 04/02/2012 Gastrointestinal No nausea 04/02/2012 Gastrointestinal No vomiting 04/02/2012 Constitutional recent illness 01/24/2012 Constitutional No anorexia 01/24/2012 Constitutional No night sweats 01/24/2012 Constitutional No chills 01/24/2012 Constitutional No diaphoresis 01/24/2012 Constitutional No insomnia 01/24/2012 Constitutional No fever 01/24/2012 Constitutional fatigue 0 01/24/2012 Eyes No eye discharge Eyes No eye erythema Cardiovascular No chest pain/pressure 01/24/2012 Gastrointestinal No vomiting 01/24/2012 Gastrointestinal No nausea 01/24/2012 Gastrointestinal No abdominal pain 01/24/2012 Gastrointestinal No constipation 01/24/2012 Gastrointestinal No diarrhea 01/24/2012 Genitourinary/Nephrology No dysuria 01/24/2012 Musculoskeletal No joint complaint 01/24/2012 Dermatologic No rash Dermatologic No sores Constitutional No fever 10/03/2011 Eyes cataract 10/03/2011 Ears/Nose/Throat/Neck No dizziness 10/03/2011 Cardiovascular No chest pain/pressure 10/03/2011 Respiratory No dyspnea 0 10/03/2011 Gastrointestinal No vomiting 10/03/2011 Gastrointestinal No nausea 10/03/2011 Gastrointestinal No diarrhea 10/03/2011 Gastrointestinal No constipation 10/03/2011 Cardiovascular No syncope 10/03/2011 Respiratory No chest congestion 10/03/2011 Respiratory No cough 02/2012 Gastrointestinal No abdominal pain 10/03/2011 Dermatologic No rash 02/2012 Neurologic No alteration of consciousness 10/03/2011 Neurologic No mental status change 10/03/2011 Constitutional No fever 05/30/2011 Constitutional No chills 05/30/2011 Constitutional No fatigue 05/30/2011 Cardiovascular No chest pain/pressure 05/30/2011 Gastrointestinal No nausea 05/30/2011 Gastrointestinal No vomiting 05/30/2011 Dermatologic No rash 10/2010 Dermatologic No sores Musculoskeletal No stiffness 05/30/2011 Musculoskeletal No arthralgia(s) 05/30/2011 System Result Effective Dates Constitutional No recent illness 11/01/2018 Constitutional fatigue 0 11/01/2018 Constitutional No fever 11/01/2018 Constitutional No insomnia 11/01/2018 Eyes No blindness 2018 Eyes No vision change Ears/Nose/Throat/Neck No dizziness 11/01/2018 Cardiovascular No chest pain/pressure 11/01/2018 Cardiovascular fatigue 0 11/01/2018 Cardiovascular hypertension 11/01/2018 Respiratory No chest congestion 11/01/2018 Respiratory No cough 02/2019 Gastrointestinal No abdominal pain 11/01/2018 Gastrointestinal No constipation 11/01/2018 Gastrointestinal No diarrhea 11/01/2018 Gastrointestinal No nausea 11/01/2018 Gastrointestinal No vomiting 11/01/2018 Musculoskeletal arthralgia(s) 11/01/2018 Musculoskeletal muscle weakness 11/01/2018 Musculoskeletal myalgias 11/01/2018 Musculoskeletal sciatica 11/01/2018 Dermatologic No rash 02/2019 Neurologic No alteration of consciousness 11/01/2018 Neurologic No mental status change 11/01/2018 Psychiatric No anxiety 0 11/01/2018 Psychiatric No depression 11/01/2018 Musculoskeletal back pain 11/01/2018 Constitutional No recent illness 10/08/2018 Constitutional fatigue 0 10/08/2018 Constitutional No fever 10/08/2018 Constitutional No insomnia 10/08/2018 Eyes No blindness 2018 Eyes No vision change Ears/Nose/Throat/Neck No dizziness 10/08/2018 Cardiovascular No chest pain/pressure 10/08/2018 Cardiovascular fatigue 0 10/08/2018 Cardiovascular hypertension 10/08/2018 Respiratory No chest congestion 10/08/2018 Respiratory No cough Gastrointestinal No abdominal pain 10/08/2018 Gastrointestinal No constipation 10/08/2018 Gastrointestinal No diarrhea 10/08/2018 Gastrointestinal No nausea 10/08/2018 Gastrointestinal No vomiting 10/08/2018 Musculoskeletal No stiffness 10/08/2018 Musculoskeletal arthralgia(s) 10/08/2018 Musculoskeletal muscle weakness 10/08/2018 Musculoskeletal myalgias 10/08/2018 Dermatologic No rash Neurologic No alteration of consciousness 10/08/2018 Neurologic No mental status change 10/08/2018 Psychiatric No anxiety 0 10/08/2018 Psychiatric No depression 10/08/2018 Musculoskeletal sciatica 10/08/2018 Constitutional No recent illness 09/27/2018 Constitutional No anorexia 09/27/2018 Constitutional No night sweats 09/27/2018 Constitutional No chills 09/27/2018 Constitutional No diaphoresis 09/27/2018 Constitutional fatigue 0 09/27/2018 Constitutional No fever 09/27/2018 Constitutional No insomnia 09/27/2018 Constitutional No malaise 09/27/2018 Constitutional No weight loss 09/27/2018 Constitutional No weight gain 09/27/2018 Constitutional fatigue 0 09/11/2018 Constitutional No fever 09/11/2018 Constitutional No insomnia 09/11/2018 Eyes No blindness 2018 Eyes No vision change Ears/Nose/Throat/Neck No dizziness 09/11/2018 Cardiovascular No chest pain/pressure 09/11/2018 Cardiovascular fatigue 0 09/11/2018 Cardiovascular hypertension 09/11/2018 Respiratory No chest congestion 09/11/2018 Respiratory No cough Gastrointestinal No abdominal pain 09/11/2018 Gastrointestinal No constipation 09/11/2018 Gastrointestinal No diarrhea 09/11/2018 Gastrointestinal No nausea 09/11/2018 Gastrointestinal No vomiting 09/11/2018 Genitourinary/Nephrology No dysuria 09/11/2018 Musculoskeletal No stiffness 09/11/2018 Musculoskeletal No arthralgia(s) 09/11/2018 Dermatologic No rash Neurologic No alteration of consciousness 09/11/2018 Neurologic No mental status change 09/11/2018 Psychiatric No anxiety 0 09/11/2018 Psychiatric No depression 09/11/2018 Endocrine diabetes mellitus type 2 09/11/2018 Musculoskeletal joint complaint 09/11/2018 Constitutional fatigue 1 08/05/2017 Constitutional No fever 06/04/2018 Constitutional No insomnia 06/04/2018 Eyes No blindness 2017 Eyes No vision change Ears/Nose/Throat/Neck No dizziness 06/04/2018 Cardiovascular No chest pain/pressure 06/04/2018 Cardiovascular fatigue 1 08/05/2017 Cardiovascular hypertension 06/04/2018 Respiratory No chest congestion 06/04/2018 Respiratory cough 2017 Gastrointestinal No abdominal pain 06/04/2018 Gastrointestinal No constipation 06/04/2018 Gastrointestinal No diarrhea 06/04/2018 Gastrointestinal No nausea 06/04/2018 Gastrointestinal No vomiting 06/04/2018 Genitourinary/Nephrology No dysuria 06/04/2018 Genitourinary/Nephrology urinary inc ontinence 06/04/2018 Musculoskeletal No stiffness 06/04/2018 Musculoskeletal No arthralgia(s) 06/04/2018 Musculoskeletal back pain 06/04/2018 Musculoskeletal joint complaint 06/04/2018 Dermatologic No rash 03/2018 Neurologic No alteration of consciousness 06/04/2018 Neurologic No mental status change 06/04/2018 Psychiatric No anxiety 1 08/05/2017 Psychiatric No depression 06/04/2018 Endocrine diabetes mellitus type 2 06/04/2018 Constitutional recent illness 03/27/2018 Constitutional No anorexia 03/27/2018 Constitutional No night sweats 03/27/2018 Constitutional No chills 03/27/2018 Constitutional No diaphoresis 03/27/2018 Constitutional fatigue 1 Constitutional No fever 03/27/2018 Constitutional No insomnia 03/27/2018 Constitutional No malaise 03/27/2018 Constitutional No weight loss 03/27/2018 Constitutional No weight gain 03/27/2018 Eyes No eye discharge Eyes No eye erythema 07/2017 Ears/Nose/Throat/Neck No dizziness 03/27/2018 Ears/Nose/Throat/Neck No headache 03/27/2018 Ears/Nose/Throat/Neck nasal allergies 03/27/2018 Ears/Nose/Throat/Neck nasal discharge 03/27/2018 Ears/Nose/Throat/Neck sinus congestion 03/27/2018 Ears/Nose/Throat/Neck No sore throat 03/27/2018 Cardiovascular No chest pain/pressure 03/27/2018 Cardiovascular No dyspnea 03/27/2018 Cardiovascular No edema 03/27/2018 Respiratory productive sputum 03/27/2018 Respiratory cough 2017 Gastrointestinal No abdominal pain 03/27/2018 Gastrointestinal No constipation 03/27/2018 Gastrointestinal No diarrhea 03/27/2018 Genitourinary/Nephrology No dysuria 03/27/2018 Musculoskeletal No joint complaint 03/27/2018 Dermatologic No rash 07/2017 Neurologic No alteration of consciousness 03/27/2018 Psychiatric No anxiety 1 Endocrine No dry or coarse skin 03/27/2018 Constitutional fatigue 0 03/19/2018 Constitutional No fever 03/19/2018 Constitutional No insomnia 03/19/2018 Eyes No blindness 2017 Eyes No vision change Ears/Nose/Throat/Neck No dizziness 03/19/2018 Cardiovascular No chest pain/pressure 03/19/2018 Cardiovascular fatigue 0 03/19/2018 Cardiovascular hypertension 03/19/2018 Respiratory No chest congestion 03/19/2018 Respiratory No cough Gastrointestinal No abdominal pain 03/19/2018 Gastrointestinal No constipation 03/19/2018 Gastrointestinal No diarrhea 03/19/2018 Gastrointestinal No nausea 03/19/2018 Gastrointestinal No vomiting 03/19/2018 Genitourinary/Nephrology No dysuria 03/19/2018 Genitourinary/Nephrology urinary inc ontinence 03/19/2018 Musculoskeletal No stiffness 03/19/2018 Musculoskeletal No arthralgia(s) 03/19/2018 Musculoskeletal back pain 03/19/2018 Dermatologic No rash Neurologic No alteration of consciousness 03/19/2018 Neurologic No mental status change 03/19/2018 Psychiatric No anxiety 0 03/19/2018 Psychiatric No depression 03/19/2018 Endocrine diabetes mellitus type 2 03/19/2018 Musculoskeletal joint complaint 03/19/2018 Constitutional No recent illness 01/30/2018 Constitutional fatigue 0 01/30/2018 Constitutional No fever 01/30/2018 Constitutional No insomnia 01/30/2018 Eyes No blindness 2017 Eyes No vision change Ears/Nose/Throat/Neck No dizziness 01/30/2018 Cardiovascular No chest pain/pressure 01/30/2018 Cardiovascular fatigue 0 01/30/2018 Cardiovascular hypertension 01/30/2018 Respiratory No chest congestion 01/30/2018 Respiratory No cough 12/2017 Gastrointestinal No abdominal pain 01/30/2018 Gastrointestinal No constipation 01/30/2018 Gastrointestinal No diarrhea 01/30/2018 Gastrointestinal No nausea 01/30/2018 Gastrointestinal No vomiting 01/30/2018 Musculoskeletal No stiffness 01/30/2018 Musculoskeletal arthralgia(s) 01/30/2018 Musculoskeletal muscle weakness 01/30/2018 Musculoskeletal myalgias 01/30/2018 Dermatologic No rash 12/2017 Neurologic No alteration of consciousness 01/30/2018 Neurologic No mental status change 01/30/2018 Psychiatric No anxiety 0 01/30/2018 Psychiatric No depression 01/30/2018 Constitutional No recent illness 12/26/2017 Constitutional No fever 12/26/2017 Constitutional No insomnia 12/26/2017 Eyes No blindness 2017 Eyes No vision change Ears/Nose/Throat/Neck No dizziness 12/26/2017 Cardiovascular No chest pain/pressure 12/26/2017 Cardiovascular fatigue 0 12/26/2017 Cardiovascular hypertension 12/26/2017 Respiratory No chest congestion 12/26/2017 Respiratory No cough 08/2017 Gastrointestinal No abdominal pain 12/26/2017 Gastrointestinal No constipation 12/26/2017 Gastrointestinal No diarrhea 12/26/2017 Gastrointestinal No nausea 12/26/2017 Gastrointestinal No vomiting 12/26/2017 Musculoskeletal No stiffness 12/26/2017 Musculoskeletal No arthralgia(s) 12/26/2017 Dermatologic No rash 08/2017 Neurologic No alteration of consciousness 12/26/2017 Neurologic No mental status change 12/26/2017 Psychiatric No anxiety 0 12/26/2017 Psychiatric No depression 12/26/2017 Constitutional fatigue 0 12/26/2017 Musculoskeletal myalgias 12/26/2017 Musculoskeletal muscle weakness 12/26/2017 Genitourinary/Nephrology urinary frequency 12/26/2017 Constitutional No recent illness 11/21/2017 Constitutional No chills 11/21/2017 Constitutional No diaphoresis 11/21/2017 Constitutional No fever 11/21/2017 Eyes No eye erythema Ears/Nose/Throat/Neck No nasal discharge 11/21/2017 Ears/Nose/Throat/Neck No nasal allergies 11/21/2017 Cardiovascular No chest pain/pressure 11/21/2017 Cardiovascular No dyspnea 11/21/2017 Cardiovascular No palpitations 11/21/2017 Respiratory No cough Respiratory No chest congestion 11/21/2017 Gastrointestinal No abdominal pain 11/21/2017 Dermatologic No rash Neurologic No alteration of consciousness 11/21/2017 Neurologic No mental status change 11/21/2017 Constitutional fatigue 0 10/19/2017 Constitutional No fever 10/19/2017 Constitutional No insomnia 10/19/2017 Eyes No blindness 2017 Eyes No vision change Ears/Nose/Throat/Neck No dizziness 10/19/2017 Cardiovascular No chest pain/pressure 10/19/2017 Cardiovascular fatigue 0 10/19/2017 Cardiovascular hypertension 10/19/2017 Respiratory No chest congestion 10/19/2017 Respiratory No cough Gastrointestinal No abdominal pain 10/19/2017 Gastrointestinal No constipation 10/19/2017 Gastrointestinal No diarrhea 10/19/2017 Gastrointestinal No nausea 10/19/2017 Gastrointestinal No vomiting 10/19/2017 Musculoskeletal No stiffness 10/19/2017 Musculoskeletal No arthralgia(s) 10/19/2017 Musculoskeletal back pain 10/19/2017 Dermatologic No rash Neurologic No alteration of consciousness 10/19/2017 Neurologic No mental status change 10/19/2017 Psychiatric No anxiety 0 10/19/2017 Psychiatric No depression 10/19/2017 Endocrine diabetes mellitus type 2 10/19/2017 Gastrointestinal gastroesophageal reflux 10/19/2017 Genitourinary/Nephrology No dysuria 10/19/2017 Genitourinary/Nephrology urinary inc ontinence 10/19/2017 Constitutional fatigue 0 09/18/2017 Constitutional No fever 09/18/2017 Constitutional No insomnia 09/18/2017 Eyes No blindness 2017 Eyes No vision change Ears/Nose/Throat/Neck No dizziness 09/18/2017 Cardiovascular No chest pain/pressure 09/18/2017 Cardiovascular fatigue 0 09/18/2017 Cardiovascular hypertension 09/18/2017 Respiratory No chest congestion 09/18/2017 Respiratory No cough Gastrointestinal No abdominal pain 09/18/2017 Gastrointestinal No constipation 09/18/2017 Gastrointestinal No diarrhea 09/18/2017 Gastrointestinal No nausea 09/18/2017 Gastrointestinal No vomiting 09/18/2017 Genitourinary/Nephrology urinary frequency 09/18/2017 Musculoskeletal No stiffness 09/18/2017 Musculoskeletal No arthralgia(s) 09/18/2017 Musculoskeletal back pain 09/18/2017 Dermatologic No rash Neurologic No alteration of consciousness 09/18/2017 Neurologic No mental status change 09/18/2017 Psychiatric No anxiety 0 09/18/2017 Psychiatric No depression 09/18/2017 Endocrine diabetes mellitus type 2 09/18/2017 Constitutional No fever 07/21/2017 Eyes cataract 07/21/2017 Ears/Nose/Throat/Neck No dizziness 07/21/2017 Cardiovascular No chest pain/pressure 07/21/2017 Cardiovascular No syncope 07/21/2017 Respiratory No chest congestion 07/21/2017 Respiratory No cough Respiratory No dyspnea 0 07/21/2017 Gastrointestinal No abdominal pain 07/21/2017 Gastrointestinal No constipation 07/21/2017 Gastrointestinal No diarrhea 07/21/2017 Gastrointestinal No nausea 07/21/2017 Gastrointestinal No vomiting 07/21/2017 Musculoskeletal No stiffness 07/21/2017 Musculoskeletal No swelling 07/21/2017 Musculoskeletal No muscle weakness 07/21/2017 Musculoskeletal No myalgias 07/21/2017 Dermatologic No rash Neurologic No alteration of consciousness 07/21/2017 Neurologic No mental status change 07/21/2017 Psychiatric No anxiety 0 07/21/2017 Constitutional recent illness 07/21/2017 Constitutional No fever 05/04/2017 Eyes cataract 05/04/2017 Ears/Nose/Throat/Neck No dizziness 05/04/2017 Cardiovascular No chest pain/pressure 05/04/2017 Cardiovascular No syncope 05/04/2017 Respiratory No chest congestion 05/04/2017 Respiratory No cough 02/2017 Respiratory No dyspnea 1 07/04/2016 Gastrointestinal No abdominal pain 05/04/2017 Gastrointestinal No constipation 05/04/2017 Gastrointestinal No diarrhea 05/04/2017 Gastrointestinal No nausea 05/04/2017 Gastrointestinal No vomiting 05/04/2017 Dermatologic No rash 02/2017 Neurologic No alteration of consciousness 05/04/2017 Neurologic No mental status change 05/04/2017 Musculoskeletal No stiffness 05/04/2017 Musculoskeletal No swelling 05/04/2017 Musculoskeletal No muscle weakness 05/04/2017 Musculoskeletal No myalgias 05/04/2017 Psychiatric No anxiety 1 07/04/2016 Constitutional recent illness 03/30/2017 Constitutional fatigue 1 Constitutional malaise 1 Cardiovascular exercise intolerance 03/30/2017 Cardiovascular fatigue 1 Respiratory No chest congestion 03/30/2017 Respiratory No chest tightness 03/30/2017 Gastrointestinal No abdominal pain 03/30/2017 Psychiatric No anxiety 1 Psychiatric No depression 03/30/2017 Musculoskeletal stiffness 03/30/2017 Constitutional No fever 03/30/2017 Constitutional No insomnia 03/30/2017 Ears/Nose/Throat/Neck dizziness 03/30/2017 Cardiovascular No chest pain/pressure 03/30/2017 Cardiovascular hypertension 03/30/2017 Respiratory No cough 10/2016 Gastrointestinal No constipation 03/30/2017 Gastrointestinal No diarrhea 03/30/2017 Gastrointestinal No nausea 03/30/2017 Gastrointestinal No vomiting 03/30/2017 Genitourinary/Nephrology urinary frequency 03/30/2017 Musculoskeletal arthralgia(s) 03/30/2017 Musculoskeletal back pain 03/30/2017 Musculoskeletal muscle weakness 03/30/2017 Constitutional No fever 03/02/2017 Constitutional No insomnia 03/02/2017 Eyes No blindness 2016 Eyes No vision change Ears/Nose/Throat/Neck No dizziness 03/02/2017 Cardiovascular No chest pain/pressure 03/02/2017 Cardiovascular fatigue 0 03/02/2017 Cardiovascular hypertension 03/02/2017 Respiratory No chest congestion 03/02/2017 Respiratory No cough 12/2016 Gastrointestinal No abdominal pain 03/02/2017 Gastrointestinal No constipation 03/02/2017 Gastrointestinal No diarrhea 03/02/2017 Gastrointestinal No nausea 03/02/2017 Gastrointestinal No vomiting 03/02/2017 Genitourinary/Nephrology urinary frequency 03/02/2017 Musculoskeletal No stiffness 03/02/2017 Musculoskeletal No arthralgia(s) 03/02/2017 Musculoskeletal back pain 03/02/2017 Dermatologic No rash 12/2016 Neurologic No alteration of consciousness 03/02/2017 Neurologic No mental status change 03/02/2017 Psychiatric No anxiety 0 03/02/2017 Psychiatric No depression 03/02/2017 Constitutional No recent illness 03/02/2017 Constitutional fatigue 0 03/02/2017 Constitutional fatigue 0 01/31/2017 Constitutional No fever 01/31/2017 Constitutional No insomnia 01/31/2017 Eyes No blindness 2016 Eyes No vision change Ears/Nose/Throat/Neck dizziness 01/31/2017 Cardiovascular No chest pain/pressure 01/31/2017 Cardiovascular fatigue 0 01/31/2017 Cardiovascular hypertension 01/31/2017 Respiratory No chest congestion 01/31/2017 Respiratory No cough 01/2017 Gastrointestinal No abdominal pain 01/31/2017 Gastrointestinal No constipation 01/31/2017 Gastrointestinal No diarrhea 01/31/2017 Gastrointestinal No nausea 01/31/2017 Gastrointestinal No vomiting 01/31/2017 Genitourinary/Nephrology urinary frequency 01/31/2017 Musculoskeletal stiffness 01/31/2017 Musculoskeletal arthralgia(s) 01/31/2017 Musculoskeletal back pain 01/31/2017 Dermatologic No rash 01/2017 Neurologic No alteration of consciousness 01/31/2017 Neurologic No mental status change 01/31/2017 Psychiatric No anxiety 0 01/31/2017 Psychiatric No depression 01/31/2017 Musculoskeletal muscle weakness 01/31/2017 Constitutional fatigue 0 10/25/2016 Constitutional No fever 10/25/2016 Constitutional No insomnia 10/25/2016 Eyes No blindness 2016 Eyes No vision change Ears/Nose/Throat/Neck No dizziness 10/25/2016 Cardiovascular No chest pain/pressure 10/25/2016 Cardiovascular fatigue 0 10/25/2016 Cardiovascular hypertension 10/25/2016 Respiratory No chest congestion 10/25/2016 Respiratory No cough 07/2016 Gastrointestinal No abdominal pain 10/25/2016 Gastrointestinal No constipation 10/25/2016 Gastrointestinal No diarrhea 10/25/2016 Gastrointestinal No nausea 10/25/2016 Gastrointestinal No vomiting 10/25/2016 Genitourinary/Nephrology urinary frequency 10/25/2016 Musculoskeletal No stiffness 10/25/2016 Musculoskeletal No arthralgia(s) 10/25/2016 Musculoskeletal back pain 10/25/2016 Dermatologic No rash 07/2016 Neurologic No alteration of consciousness 10/25/2016 Neurologic No mental status change 10/25/2016 Psychiatric No anxiety 0 10/25/2016 Psychiatric No depression 10/25/2016 Constitutional fatigue 0 07/27/2016 Constitutional No fever 07/27/2016 Constitutional No insomnia 07/27/2016 Eyes No blindness 2016 Eyes No vision change Ears/Nose/Throat/Neck No dizziness 07/27/2016 Cardiovascular No chest pain/pressure 07/27/2016 Cardiovascular fatigue 0 07/27/2016 Cardiovascular hypertension 07/27/2016 Respiratory No chest congestion 07/27/2016 Respiratory No cough 06/2016 Gastrointestinal No abdominal pain 07/27/2016 Gastrointestinal No constipation 07/27/2016 Gastrointestinal No diarrhea 07/27/2016 Gastrointestinal No nausea 07/27/2016 Gastrointestinal No vomiting 07/27/2016 Genitourinary/Nephrology urinary frequency 07/27/2016 Musculoskeletal No stiffness 07/27/2016 Musculoskeletal No arthralgia(s) 07/27/2016 Musculoskeletal back pain 07/27/2016 Dermatologic No rash 06/2016 Neurologic No alteration of consciousness 07/27/2016 Neurologic No mental status change 07/27/2016 Psychiatric No anxiety 0 07/27/2016 Psychiatric No depression 07/27/2016 Constitutional fatigue 1 07/27/2015 Constitutional No fever 05/26/2016 Constitutional No insomnia 05/26/2016 Eyes No blindness 2015 Eyes No vision change Ears/Nose/Throat/Neck No dizziness 05/26/2016 Cardiovascular No chest pain/pressure 05/26/2016 Cardiovascular fatigue 1 07/27/2015 Cardiovascular hypertension 05/26/2016 Respiratory No chest congestion 05/26/2016 Respiratory No cough 06/2015 Gastrointestinal No abdominal pain 05/26/2016 Gastrointestinal No constipation 05/26/2016 Gastrointestinal No diarrhea 05/26/2016 Gastrointestinal No nausea 05/26/2016 Gastrointestinal No vomiting 05/26/2016 Genitourinary/Nephrology urinary frequency 05/26/2016 Musculoskeletal No stiffness 05/26/2016 Musculoskeletal No arthralgia(s) 05/26/2016 Musculoskeletal back pain 05/26/2016 Dermatologic No rash 06/2015 Neurologic No alteration of consciousness 05/26/2016 Neurologic No mental status change 05/26/2016 Psychiatric No anxiety 1 07/27/2015 Psychiatric No depression 05/26/2016 Constitutional fatigue 1 07/12/2015 Constitutional No fever 05/12/2016 Constitutional No insomnia 05/12/2016 Eyes No blindness 2015 Eyes No vision change Ears/Nose/Throat/Neck No dizziness 05/12/2016 Cardiovascular No chest pain/pressure 05/12/2016 Cardiovascular fatigue 1 07/12/2015 Cardiovascular hypertension 05/12/2016 Respiratory No chest congestion 05/12/2016 Respiratory No cough Gastrointestinal No abdominal pain 05/12/2016 Gastrointestinal No constipation 05/12/2016 Gastrointestinal No diarrhea 05/12/2016 Gastrointestinal No nausea 05/12/2016 Gastrointestinal No vomiting 05/12/2016 Genitourinary/Nephrology urinary frequency 05/12/2016 Musculoskeletal No stiffness 05/12/2016 Musculoskeletal No arthralgia(s) 05/12/2016 Musculoskeletal back pain 05/12/2016 Dermatologic No rash Neurologic No alteration of consciousness 05/12/2016 Neurologic No mental status change 05/12/2016 Psychiatric No anxiety 1 07/12/2015 Psychiatric No depression 05/12/2016 Constitutional fatigue 0 02/23/2016 Constitutional No fever 02/23/2016 Constitutional No insomnia 02/23/2016 Eyes No blindness 2015 Eyes No vision change Ears/Nose/Throat/Neck No dizziness 02/23/2016 Cardiovascular No chest pain/pressure 02/23/2016 Cardiovascular fatigue 0 02/23/2016 Cardiovascular hypertension 02/23/2016 Respiratory No chest congestion 02/23/2016 Respiratory No cough Gastrointestinal No abdominal pain 02/23/2016 Gastrointestinal No constipation 02/23/2016 Gastrointestinal No diarrhea 02/23/2016 Gastrointestinal No nausea 02/23/2016 Gastrointestinal No vomiting 02/23/2016 Genitourinary/Nephrology urinary frequency 02/23/2016 Musculoskeletal No stiffness 02/23/2016 Musculoskeletal No arthralgia(s) 02/23/2016 Musculoskeletal back pain 02/23/2016 Dermatologic No rash Neurologic No alteration of consciousness 02/23/2016 Neurologic No mental status change 02/23/2016 Psychiatric No anxiety 0 02/23/2016 Psychiatric No depression 02/23/2016 Constitutional fatigue 0 12/10/2015 Constitutional No fever 12/10/2015 Constitutional No insomnia 12/10/2015 Eyes No blindness 2015 Eyes No vision change Ears/Nose/Throat/Neck No dizziness 12/10/2015 Cardiovascular No chest pain/pressure 12/10/2015 Cardiovascular fatigue 0 12/10/2015 Cardiovascular hypertension 12/10/2015 Respiratory No chest congestion 12/10/2015 Respiratory No cough Gastrointestinal No abdominal pain 12/10/2015 Gastrointestinal No constipation 12/10/2015 Gastrointestinal No diarrhea 12/10/2015 Gastrointestinal No nausea 12/10/2015 Gastrointestinal No vomiting 12/10/2015 Genitourinary/Nephrology urinary frequency 12/10/2015 Musculoskeletal No stiffness 12/10/2015 Musculoskeletal No arthralgia(s) 12/10/2015 Musculoskeletal back pain 12/10/2015 Dermatologic No rash Neurologic No alteration of consciousness 12/10/2015 Neurologic No mental status change 12/10/2015 Psychiatric No anxiety 0 12/10/2015 Psychiatric No depression 12/10/2015 Constitutional fatigue 0 11/10/2015 Constitutional No fever 11/10/2015 Constitutional No insomnia 11/10/2015 Eyes No blindness 2015 Eyes No vision change Ears/Nose/Throat/Neck No dizziness 11/10/2015 Cardiovascular No chest pain/pressure 11/10/2015 Cardiovascular fatigue 0 11/10/2015 Cardiovascular hypertension 11/10/2015 Respiratory No chest congestion 11/10/2015 Respiratory No cough Gastrointestinal No abdominal pain 11/10/2015 Gastrointestinal No constipation 11/10/2015 Gastrointestinal No diarrhea 11/10/2015 Gastrointestinal No nausea 11/10/2015 Gastrointestinal No vomiting 11/10/2015 Genitourinary/Nephrology urinary frequency 11/10/2015 Musculoskeletal No stiffness 11/10/2015 Musculoskeletal No arthralgia(s) 11/10/2015 Musculoskeletal back pain 11/10/2015 Dermatologic No rash Neurologic No alteration of consciousness 11/10/2015 Neurologic No mental status change 11/10/2015 Psychiatric No anxiety 0 11/10/2015 Psychiatric No depression 11/10/2015 Constitutional fatigue 0 08/07/2015 Constitutional No fever 08/07/2015 Constitutional No insomnia 08/07/2015 Eyes No blindness 2015 Eyes No vision change Ears/Nose/Throat/Neck No dizziness 08/07/2015 Cardiovascular No chest pain/pressure 08/07/2015 Cardiovascular dyspnea 0 08/07/2015 Cardiovascular edema 05/2016 Cardiovascular fatigue 0 08/07/2015 Cardiovascular hypertension 08/07/2015 Respiratory No chest congestion 08/07/2015 Respiratory No cough 05/2016 Gastrointestinal No abdominal pain 08/07/2015 Gastrointestinal No constipation 08/07/2015 Gastrointestinal No diarrhea 08/07/2015 Gastrointestinal No nausea 08/07/2015 Gastrointestinal No vomiting 08/07/2015 Genitourinary/Nephrology urinary frequency 08/07/2015 Musculoskeletal No stiffness 08/07/2015 Musculoskeletal No arthralgia(s) 08/07/2015 Musculoskeletal back pain 08/07/2015 Dermatologic No rash 05/2016 Neurologic No alteration of consciousness 08/07/2015 Neurologic No mental status change 08/07/2015 Psychiatric No anxiety 0 08/07/2015 Psychiatric No depression 08/07/2015 Constitutional fatigue 0 07/07/2015 Constitutional No fever 07/07/2015 Constitutional No insomnia 07/07/2015 Eyes No blindness 2015 Eyes No vision change Ears/Nose/Throat/Neck No dizziness 07/07/2015 Cardiovascular No chest pain/pressure 07/07/2015 Cardiovascular dyspnea 0 07/07/2015 Cardiovascular edema 05/2016 Cardiovascular fatigue 0 07/07/2015 Cardiovascular hypertension 07/07/2015 Respiratory No chest congestion 07/07/2015 Respiratory No cough 05/2016 Gastrointestinal No abdominal pain 07/07/2015 Gastrointestinal No constipation 07/07/2015 Gastrointestinal No diarrhea 07/07/2015 Gastrointestinal No nausea 07/07/2015 Gastrointestinal No vomiting 07/07/2015 Genitourinary/Nephrology urinary frequency 07/07/2015 Musculoskeletal No stiffness 07/07/2015 Musculoskeletal No arthralgia(s) 07/07/2015 Dermatologic No rash 05/2016 Neurologic No alteration of consciousness 07/07/2015 Neurologic No mental status change 07/07/2015 Psychiatric No anxiety 0 07/07/2015 Psychiatric No depression 07/07/2015 Musculoskeletal back pain 07/07/2015 Constitutional No chills 04/02/2015 Constitutional No fever 04/02/2015 Constitutional fatigue 1 Eyes No eye discharge Ears/Nose/Throat/Neck No nasal allergies 04/02/2015 Constitutional No recent illness 04/02/2015 Cardiovascular No dyspnea 04/02/2015 Cardiovascular fatigue 1 Respiratory No chest congestion 04/02/2015 Respiratory No cough 01/2015 Gastrointestinal dyspepsia 04/02/2015 Gastrointestinal No constipation 04/02/2015 Gastrointestinal No diarrhea 04/02/2015 Gastrointestinal gastroesophageal reflux 04/02/2015 Dermatologic erythema Constitutional fatigue 0 12/23/2014 Constitutional No insomnia 12/23/2014 Ears/Nose/Throat/Neck postnasal drip 12/23/2014 Cardiovascular fatigue 0 12/23/2014 Respiratory No chest congestion 12/23/2014 Respiratory No cough Gastrointestinal No abdominal pain 12/23/2014 Gastrointestinal No constipation 12/23/2014 Gastrointestinal No diarrhea 12/23/2014 Genitourinary/Nephrology urinary frequency 12/23/2014 Constitutional No fever 12/23/2014 Eyes No blindness 2014 Eyes No vision change Ears/Nose/Throat/Neck No dizziness 12/23/2014 Cardiovascular No chest pain/pressure 12/23/2014 Cardiovascular dyspnea 0 12/23/2014 Cardiovascular edema Cardiovascular hypertension 12/23/2014 Gastrointestinal No nausea 12/23/2014 Gastrointestinal No vomiting 12/23/2014 Musculoskeletal No stiffness 12/23/2014 Musculoskeletal No arthralgia(s) 12/23/2014 Dermatologic No rash Neurologic No alteration of consciousness 12/23/2014 Neurologic No mental status change 12/23/2014 Psychiatric No anxiety 0 12/23/2014 Psychiatric No depression 12/23/2014 Constitutional fatigue 0 10/22/2014 Constitutional No insomnia 10/22/2014 Cardiovascular dyspnea 0 10/22/2014 Cardiovascular No chest pain/pressure 10/22/2014 Respiratory No chest congestion 10/22/2014 Respiratory No cough Gastrointestinal No constipation 10/22/2014 Gastrointestinal No diarrhea 10/22/2014 Gastrointestinal No abdominal pain 10/22/2014 Constitutional No fever 10/22/2014 Eyes No blindness 2014 Eyes No vision change Ears/Nose/Throat/Neck No dizziness 10/22/2014 Cardiovascular edema Cardiovascular hypertension 10/22/2014 Gastrointestinal No nausea 10/22/2014 Gastrointestinal No vomiting 10/22/2014 Musculoskeletal No stiffness 10/22/2014 Musculoskeletal No arthralgia(s) 10/22/2014 Dermatologic No rash Neurologic No alteration of consciousness 10/22/2014 Neurologic No mental status change 10/22/2014 Psychiatric No anxiety 0 10/22/2014 Psychiatric No depression 10/22/2014 Constitutional recent illness 09/26/2014 Constitutional No anorexia 09/26/2014 Constitutional No night sweats 09/26/2014 Constitutional chills Constitutional diaphoresis 09/26/2014 Constitutional fatigue 0 09/26/2014 Constitutional fever 08/2014 Constitutional No insomnia 09/26/2014 Constitutional No malaise 09/26/2014 Constitutional No weight loss 09/26/2014 Constitutional No weight gain 09/26/2014 Eyes No eye discharge Eyes No eye erythema 08/2014 Ears/Nose/Throat/Neck No dizziness 09/26/2014 Ears/Nose/Throat/Neck nasal allergies 09/26/2014 Ears/Nose/Throat/Neck nasal discharge 09/26/2014 Ears/Nose/Throat/Neck No otalgia 09/26/2014 Ears/Nose/Throat/Neck sinus congestion 09/26/2014 Ears/Nose/Throat/Neck No sore throat 09/26/2014 Respiratory productive sputum 09/26/2014 Respiratory cough 2014 Gastrointestinal No constipation 09/26/2014 Gastrointestinal No diarrhea 09/26/2014 Genitourinary/Nephrology No dysuria 09/26/2014 Cardiovascular No chest pain/pressure 09/26/2014 Musculoskeletal No joint complaint 09/26/2014 Dermatologic No rash 08/2014 Dermatologic No sores Neurologic No alteration of consciousness 09/26/2014 Constitutional No fever 07/01/2014 Eyes No blindness 2014 Eyes No vision change Ears/Nose/Throat/Neck No dizziness 07/01/2014 Cardiovascular edema 11/2014 Cardiovascular fatigue 0 07/01/2014 Cardiovascular hypertension 07/01/2014 Respiratory No chest congestion 07/01/2014 Respiratory No cough 11/2014 Respiratory No dyspnea 0 07/01/2014 Gastrointestinal No abdominal pain 07/01/2014 Gastrointestinal No constipation 07/01/2014 Gastrointestinal No diarrhea 07/01/2014 Gastrointestinal No nausea 07/01/2014 Gastrointestinal No vomiting 07/01/2014 Musculoskeletal No stiffness 07/01/2014 Musculoskeletal No arthralgia(s) 07/01/2014 Dermatologic No rash 11/2014 Neurologic No alteration of consciousness 07/01/2014 Neurologic No mental status change 07/01/2014 Psychiatric No anxiety 0 07/01/2014 Psychiatric No depression 07/01/2014 Constitutional No fever 06/09/2014 Eyes No blindness 2013 Eyes No vision change Ears/Nose/Throat/Neck No dizziness 06/09/2014 Cardiovascular edema Cardiovascular fatigue 1 08/10/2013 Cardiovascular hypertension 06/09/2014 Respiratory No chest congestion 06/09/2014 Respiratory No cough Respiratory No dyspnea 1 08/10/2013 Gastrointestinal No abdominal pain 06/09/2014 Gastrointestinal No constipation 06/09/2014 Gastrointestinal No diarrhea 06/09/2014 Gastrointestinal No nausea 06/09/2014 Gastrointestinal No vomiting 06/09/2014 Musculoskeletal No stiffness 06/09/2014 Musculoskeletal No arthralgia(s) 06/09/2014 Dermatologic No rash Neurologic No alteration of consciousness 06/09/2014 Neurologic No mental status change 06/09/2014 Psychiatric No anxiety 1 08/10/2013 Psychiatric No depression 06/09/2014 Constitutional No fever 05/07/2014 Eyes No blindness 2013 Eyes No vision change Ears/Nose/Throat/Neck No dizziness 05/07/2014 Respiratory No chest congestion 05/07/2014 Respiratory No cough 05/2014 Respiratory No dyspnea 1 07/07/2013 Gastrointestinal No abdominal pain 05/07/2014 Gastrointestinal No constipation 05/07/2014 Gastrointestinal No diarrhea 05/07/2014 Gastrointestinal No nausea 05/07/2014 Gastrointestinal No vomiting 05/07/2014 Musculoskeletal No stiffness 05/07/2014 Musculoskeletal No arthralgia(s) 05/07/2014 Dermatologic No rash 05/2014 Neurologic No alteration of consciousness 05/07/2014 Neurologic No mental status change 05/07/2014 Cardiovascular hypertension 05/07/2014 Cardiovascular fatigue 1 07/07/2013 Cardiovascular edema 05/2014 Psychiatric No anxiety 1 07/07/2013 Psychiatric No depression 05/07/2014 Eyes No blindness 2013 Eyes No vision change Respiratory No chest congestion 04/21/2014 Respiratory No cough Respiratory No dyspnea 1 Gastrointestinal No abdominal pain 04/21/2014 Gastrointestinal No constipation 04/21/2014 Gastrointestinal No diarrhea 04/21/2014 Gastrointestinal nausea 04/21/2014 Musculoskeletal No stiffness 04/21/2014 Musculoskeletal No arthralgia(s) 04/21/2014 Dermatologic No rash Neurologic No alteration of consciousness 04/21/2014 Neurologic No mental status change 04/21/2014 Constitutional recent illness 04/21/2014 Constitutional fatigue 1 Constitutional fever Constitutional malaise 1 Constitutional weight loss 04/21/2014 Constitutional chills Ears/Nose/Throat/Neck No headache 04/21/2014 Ears/Nose/Throat/Neck No facial weakness 04/21/2014 Ears/Nose/Throat/Neck dizziness 04/21/2014 Cardiovascular No chest pain/pressure 04/21/2014 Cardiovascular dyspnea 1 Cardiovascular edema Cardiovascular fatigue 1 Genitourinary/Nephrology dysuria 04/21/2014 Genitourinary/Nephrology urinary urgency 04/21/2014 Genitourinary/Nephrology urinary frequency 04/21/2014 Psychiatric No anxiety 1 Psychiatric No depression 04/21/2014 Constitutional recent illness 02/14/2014 Constitutional No chills 02/14/2014 Constitutional No fatigue 02/14/2014 Constitutional No fever 02/14/2014 Constitutional No insomnia 02/14/2014 Constitutional No malaise 02/14/2014 Cardiovascular No chest pain/pressure 02/14/2014 Cardiovascular No dyspnea 02/14/2014 Cardiovascular No edema 02/14/2014 Cardiovascular No exercise intolerance 02/14/2014 Cardiovascular No fatigue 02/14/2014 Cardiovascular No near-syncope/dizziness 02/14/2014 Respiratory No chest tightness 02/14/2014 Respiratory No cigarette smoking 02/14/2014 Respiratory No cough Respiratory No dyspnea 0 02/14/2014 Respiratory No pedal edema 02/14/2014 Respiratory No snoring 0 02/14/2014 Respiratory No wheezing 02/14/2014 Musculoskeletal No stiffness 02/14/2014 Musculoskeletal No swelling 02/14/2014 Musculoskeletal No muscle weakness 02/14/2014 Musculoskeletal No myalgias 02/14/2014 Genitourinary/Nephrology No dysuria 02/14/2014 Genitourinary/Nephrology No nocturia 02/14/2014 Genitourinary/Nephrology No urinary incontinence 02/14/2014 Eyes No blindness 2013 Eyes No vision change Ears/Nose/Throat/Neck No dizziness 02/14/2014 Respiratory No chest congestion 02/14/2014 Gastrointestinal No abdominal pain 02/14/2014 Gastrointestinal No constipation 02/14/2014 Gastrointestinal No diarrhea 02/14/2014 Gastrointestinal No nausea 02/14/2014 Gastrointestinal No vomiting 02/14/2014 Musculoskeletal No arthralgia(s) 02/14/2014 Neurologic No alteration of consciousness 02/14/2014 Neurologic No mental status change 02/14/2014 Constitutional No fever 11/14/2013 Eyes No blindness 2013 Eyes No vision change Ears/Nose/Throat/Neck No dizziness 11/14/2013 Respiratory No chest congestion 11/14/2013 Respiratory No cough Respiratory No dyspnea 0 11/14/2013 Gastrointestinal No abdominal pain 11/14/2013 Gastrointestinal No constipation 11/14/2013 Gastrointestinal No diarrhea 11/14/2013 Gastrointestinal No nausea 11/14/2013 Gastrointestinal No vomiting 11/14/2013 Musculoskeletal No stiffness 11/14/2013 Musculoskeletal No arthralgia(s) 11/14/2013 Dermatologic No rash Neurologic No alteration of consciousness 11/14/2013 Neurologic No mental status change 11/14/2013 Constitutional No fever 10/24/2013 Eyes No blindness 2013 Eyes No vision change Ears/Nose/Throat/Neck No dizziness 10/24/2013 Respiratory No chest congestion 10/24/2013 Respiratory No cough 06/2013 Respiratory No dyspnea 0 10/24/2013 Gastrointestinal No abdominal pain 10/24/2013 Gastrointestinal No constipation 10/24/2013 Gastrointestinal No diarrhea 10/24/2013 Gastrointestinal No nausea 10/24/2013 Gastrointestinal No vomiting 10/24/2013 Musculoskeletal No stiffness 10/24/2013 Musculoskeletal No arthralgia(s) 10/24/2013 Dermatologic No rash 06/2013 Neurologic No alteration of consciousness 10/24/2013 Neurologic No mental status change 10/24/2013 Constitutional No fever 06/24/2013 Eyes No blindness 2012 Eyes No vision change Ears/Nose/Throat/Neck No dizziness 06/24/2013 Respiratory No chest congestion 06/24/2013 Respiratory No cough Respiratory No dyspnea 1 Gastrointestinal abdominal pain 06/24/2013 Gastrointestinal No constipation 06/24/2013 Gastrointestinal No diarrhea 06/24/2013 Gastrointestinal gas and bloating 06/24/2013 Gastrointestinal gastroesophageal reflux 06/24/2013 Gastrointestinal No nausea 06/24/2013 Gastrointestinal No vomiting 06/24/2013 Musculoskeletal No stiffness 06/24/2013 Musculoskeletal No arthralgia(s) 06/24/2013 Dermatologic No rash Neurologic No alteration of consciousness 06/24/2013 Neurologic No mental status change 06/24/2013 Constitutional No fever 06/05/2013 Eyes No blindness 2012 Eyes No vision change Ears/Nose/Throat/Neck No dizziness 06/05/2013 Respiratory No chest congestion 06/05/2013 Respiratory No cough 04/2013 Respiratory No dyspnea 1 08/06/2012 Gastrointestinal abdominal pain 06/05/2013 Gastrointestinal No constipation 06/05/2013 Gastrointestinal No diarrhea 06/05/2013 Gastrointestinal No nausea 06/05/2013 Gastrointestinal No vomiting 06/05/2013 Musculoskeletal No stiffness 06/05/2013 Musculoskeletal No arthralgia(s) 06/05/2013 Dermatologic No rash 04/2013 Neurologic No alteration of consciousness 06/05/2013 Neurologic No mental status change 06/05/2013 Gastrointestinal gas and bloating 06/05/2013 Gastrointestinal gastroesophageal reflux 06/05/2013 Constitutional No fever 04/01/2013 Ears/Nose/Throat/Neck No dizziness 04/01/2013 Respiratory No chest congestion 04/01/2013 Respiratory No cough 12/2012 Respiratory No dyspnea 1 Gastrointestinal No abdominal pain 04/01/2013 Gastrointestinal No constipation 04/01/2013 Gastrointestinal No diarrhea 04/01/2013 Gastrointestinal No nausea 04/01/2013 Gastrointestinal No vomiting 04/01/2013 Musculoskeletal No stiffness 04/01/2013 Musculoskeletal No arthralgia(s) 04/01/2013 Dermatologic No rash 12/2012 Neurologic No alteration of consciousness 04/01/2013 Neurologic No mental status change 04/01/2013 Eyes No blindness 2012 Eyes No vision change Constitutional No fever 01/29/2013 Ears/Nose/Throat/Neck No dizziness 01/29/2013 Respiratory No chest congestion 01/29/2013 Respiratory No cough 11/2012 Respiratory No dyspnea 0 01/29/2013 Gastrointestinal No abdominal pain 01/29/2013 Gastrointestinal No constipation 01/29/2013 Gastrointestinal No diarrhea 01/29/2013 Gastrointestinal No nausea 01/29/2013 Gastrointestinal No vomiting 01/29/2013 Musculoskeletal No stiffness 01/29/2013 Musculoskeletal No arthralgia(s) 01/29/2013 Dermatologic No rash 11/2012 Neurologic No alteration of consciousness 01/29/2013 Neurologic No mental status change 01/29/2013 Constitutional No fever 12/25/2012 Ears/Nose/Throat/Neck No dizziness 12/25/2012 Respiratory No chest congestion 12/25/2012 Respiratory No cough 07/2012 Respiratory No dyspnea 0 12/25/2012 Gastrointestinal No abdominal pain 12/25/2012 Gastrointestinal No constipation 12/25/2012 Gastrointestinal No diarrhea 12/25/2012 Gastrointestinal No nausea 12/25/2012 Gastrointestinal No vomiting 12/25/2012 Musculoskeletal No stiffness 12/25/2012 Musculoskeletal No arthralgia(s) 12/25/2012 Dermatologic No rash 07/2012 Neurologic No alteration of consciousness 12/25/2012 Neurologic No mental status change 12/25/2012 Constitutional No fever 10/01/2012 Ears/Nose/Throat/Neck No dizziness 10/01/2012 Respiratory No chest congestion 10/01/2012 Respiratory No cough 01/2013 Respiratory No dyspnea 0 10/01/2012 Gastrointestinal No abdominal pain 10/01/2012 Gastrointestinal No constipation 10/01/2012 Gastrointestinal No diarrhea 10/01/2012 Gastrointestinal No nausea 10/01/2012 Gastrointestinal No vomiting 10/01/2012 Dermatologic No rash 01/2013 Neurologic No alteration of consciousness 10/01/2012 Neurologic No mental status change 10/01/2012 Musculoskeletal No arthralgia(s) 10/01/2012 Musculoskeletal No stiffness 10/01/2012 Gastrointestinal No abdominal pain 06/29/2012 Gastrointestinal No constipation 06/29/2012 Gastrointestinal No diarrhea 06/29/2012 Gastrointestinal No nausea 06/29/2012 Gastrointestinal No vomiting 06/29/2012 Genitourinary/Nephrology No dysuria 06/29/2012 Cardiovascular No chest pain/pressure 06/29/2012 Ears/Nose/Throat/Neck No dizziness 06/29/2012 Ears/Nose/Throat/Neck No headache 06/29/2012 Ears/Nose/Throat/Neck nasal allergies 06/29/2012 Ears/Nose/Throat/Neck nasal discharge 06/29/2012 Ears/Nose/Throat/Neck sinus congestion 06/29/2012 Ears/Nose/Throat/Neck sore throat 06/29/2012 Ears/Nose/Throat/Neck No otalgia 06/29/2012 Eyes No eye discharge Eyes No eye erythema 09/2012 Constitutional No fatigue 06/29/2012 Constitutional recent illness 06/29/2012 Constitutional No night sweats 06/29/2012 Constitutional No anorexia 06/29/2012 Constitutional chills Constitutional diaphoresis 06/29/2012 Constitutional fever 09/2012 Musculoskeletal No joint complaint 06/29/2012 Dermatologic No sores Dermatologic No rash 09/2012 Constitutional recent illness 05/28/2012 Constitutional No chills 05/28/2012 Constitutional No fatigue 05/28/2012 Constitutional fever 08/2011 Constitutional No insomnia 05/28/2012 Constitutional No malaise 05/28/2012 Cardiovascular No chest pain/pressure 05/28/2012 Cardiovascular No dyspnea 05/28/2012 Cardiovascular No edema 05/28/2012 Cardiovascular No exercise intolerance 05/28/2012 Cardiovascular No fatigue 05/28/2012 Cardiovascular No near-syncope/dizziness 05/28/2012 Gastrointestinal No hemorrhoids 05/28/2012 Gastrointestinal No abdominal pain 05/28/2012 Gastrointestinal No constipation 05/28/2012 Gastrointestinal No diarrhea 05/28/2012 Gastrointestinal No gastroesophageal reflu x 05/28/2012 Gastrointestinal No melena 05/28/2012 Gastrointestinal No nausea 05/28/2012 Gastrointestinal No vomiting 05/28/2012 Genitourinary/Nephrology No dysuria 05/28/2012 Genitourinary/Nephrology No nocturia 05/28/2012 Genitourinary/Nephrology No urinary incontinence 05/28/2012 Dermatologic No rash 08/2011 Dermatologic No scar 08/2011 Cardiovascular No syncope 04/02/2012 Constitutional No fever 04/02/2012 Dermatologic No rash 01/2012 Gastrointestinal No abdominal pain 04/02/2012 Neurologic No alteration of consciousness 04/02/2012 Neurologic No mental status change 04/02/2012 Respiratory No chest congestion 04/02/2012 Respiratory No cough 01/2012 Eyes cataract 04/02/2012 Ears/Nose/Throat/Neck No dizziness 04/02/2012 Cardiovascular No chest pain/pressure 04/02/2012 Respiratory No dyspnea 1 Gastrointestinal No constipation 04/02/2012 Gastrointestinal No diarrhea 04/02/2012 Gastrointestinal No nausea 04/02/2012 Gastrointestinal No vomiting 04/02/2012 Constitutional recent illness 01/24/2012 Constitutional No anorexia 01/24/2012 Constitutional No night sweats 01/24/2012 Constitutional No chills 01/24/2012 Constitutional No diaphoresis 01/24/2012 Constitutional No insomnia 01/24/2012 Constitutional No fever 01/24/2012 Constitutional fatigue 0 01/24/2012 Eyes No eye discharge Eyes No eye erythema Cardiovascular No chest pain/pressure 01/24/2012 Gastrointestinal No vomiting 01/24/2012 Gastrointestinal No nausea 01/24/2012 Gastrointestinal No abdominal pain 01/24/2012 Gastrointestinal No constipation 01/24/2012 Gastrointestinal No diarrhea 01/24/2012 Genitourinary/Nephrology No dysuria 01/24/2012 Musculoskeletal No joint complaint 01/24/2012 Dermatologic No rash Dermatologic No sores Constitutional No fever 10/03/2011 Eyes cataract 10/03/2011 Ears/Nose/Throat/Neck No dizziness 10/03/2011 Cardiovascular No chest pain/pressure 10/03/2011 Respiratory No dyspnea 0 10/03/2011 Gastrointestinal No vomiting 10/03/2011 Gastrointestinal No nausea 10/03/2011 Gastrointestinal No diarrhea 10/03/2011 Gastrointestinal No constipation 10/03/2011 Cardiovascular No syncope 10/03/2011 Respiratory No chest congestion 10/03/2011 Respiratory No cough 02/2012 Gastrointestinal No abdominal pain 10/03/2011 Dermatologic No rash 02/2012 Neurologic No alteration of consciousness 10/03/2011 Neurologic No mental status change 10/03/2011 Constitutional No fever 05/30/2011 Constitutional No chills 05/30/2011 Constitutional No fatigue 05/30/2011 Cardiovascular No chest pain/pressure 05/30/2011 Gastrointestinal No nausea 05/30/2011 Gastrointestinal No vomiting 05/30/2011 Dermatologic No rash 10/2010 Dermatologic No sores Musculoskeletal No stiffness 05/30/2011 Musculoskeletal No arthralgia(s) 05/30/2011 System Result Effective Dates Constitutional No recent illness 02/27/2019 Constitutional fatigue 0 02/27/2019 Constitutional No fever 02/27/2019 Constitutional No insomnia 02/27/2019 Eyes No blindness 2018 Eyes No vision change Ears/Nose/Throat/Neck No dizziness 02/27/2019 Cardiovascular No chest pain/pressure 02/27/2019 Cardiovascular fatigue 0 02/27/2019 Cardiovascular hypertension 02/27/2019 Respiratory No chest congestion 02/27/2019 Respiratory No cough 09/2018 Gastrointestinal No abdominal pain 02/27/2019 Gastrointestinal No constipation 02/27/2019 Gastrointestinal No diarrhea 02/27/2019 Gastrointestinal No nausea 02/27/2019 Gastrointestinal No vomiting 02/27/2019 Musculoskeletal No stiffness 02/27/2019 Musculoskeletal arthralgia(s) 02/27/2019 Musculoskeletal muscle weakness 02/27/2019 Musculoskeletal myalgias 02/27/2019 Musculoskeletal sciatica 02/27/2019 Dermatologic No rash 09/2018 Neurologic No alteration of consciousness 02/27/2019 Neurologic No mental status change 02/27/2019 Psychiatric No anxiety 0 02/27/2019 Psychiatric No depression 02/27/2019 Musculoskeletal back pain 02/27/2019 Constitutional No recent illness 11/01/2018 Constitutional fatigue 0 11/01/2018 Constitutional No fever 11/01/2018 Constitutional No insomnia 11/01/2018 Eyes No blindness 2018 Eyes No vision change Ears/Nose/Throat/Neck No dizziness 11/01/2018 Cardiovascular No chest pain/pressure 11/01/2018 Cardiovascular fatigue 0 11/01/2018 Cardiovascular hypertension 11/01/2018 Respiratory No chest congestion 11/01/2018 Respiratory No cough 02/2019 Gastrointestinal No abdominal pain 11/01/2018 Gastrointestinal No constipation 11/01/2018 Gastrointestinal No diarrhea 11/01/2018 Gastrointestinal No nausea 11/01/2018 Gastrointestinal No vomiting 11/01/2018 Musculoskeletal arthralgia(s) 11/01/2018 Musculoskeletal muscle weakness 11/01/2018 Musculoskeletal myalgias 11/01/2018 Musculoskeletal sciatica 11/01/2018 Dermatologic No rash 02/2019 Neurologic No alteration of consciousness 11/01/2018 Neurologic No mental status change 11/01/2018 Psychiatric No anxiety 0 11/01/2018 Psychiatric No depression 11/01/2018 Musculoskeletal back pain 11/01/2018 Constitutional No recent illness 10/08/2018 Constitutional fatigue 0 10/08/2018 Constitutional No fever 10/08/2018 Constitutional No insomnia 10/08/2018 Eyes No blindness 2018 Eyes No vision change Ears/Nose/Throat/Neck No dizziness 10/08/2018 Cardiovascular No chest pain/pressure 10/08/2018 Cardiovascular fatigue 0 10/08/2018 Cardiovascular hypertension 10/08/2018 Respiratory No chest congestion 10/08/2018 Respiratory No cough Gastrointestinal No abdominal pain 10/08/2018 Gastrointestinal No constipation 10/08/2018 Gastrointestinal No diarrhea 10/08/2018 Gastrointestinal No nausea 10/08/2018 Gastrointestinal No vomiting 10/08/2018 Musculoskeletal No stiffness 10/08/2018 Musculoskeletal arthralgia(s) 10/08/2018 Musculoskeletal muscle weakness 10/08/2018 Musculoskeletal myalgias 10/08/2018 Dermatologic No rash Neurologic No alteration of consciousness 10/08/2018 Neurologic No mental status change 10/08/2018 Psychiatric No anxiety 0 10/08/2018 Psychiatric No depression 10/08/2018 Musculoskeletal sciatica 10/08/2018 Constitutional No recent illness 09/27/2018 Constitutional No anorexia 09/27/2018 Constitutional No night sweats 09/27/2018 Constitutional No chills 09/27/2018 Constitutional No diaphoresis 09/27/2018 Constitutional fatigue 0 09/27/2018 Constitutional No fever 09/27/2018 Constitutional No insomnia 09/27/2018 Constitutional No malaise 09/27/2018 Constitutional No weight loss 09/27/2018 Constitutional No weight gain 09/27/2018 Constitutional fatigue 0 09/11/2018 Constitutional No fever 09/11/2018 Constitutional No insomnia 09/11/2018 Eyes No blindness 2018 Eyes No vision change Ears/Nose/Throat/Neck No dizziness 09/11/2018 Cardiovascular No chest pain/pressure 09/11/2018 Cardiovascular fatigue 0 09/11/2018 Cardiovascular hypertension 09/11/2018 Respiratory No chest congestion 09/11/2018 Respiratory No cough Gastrointestinal No abdominal pain 09/11/2018 Gastrointestinal No constipation 09/11/2018 Gastrointestinal No diarrhea 09/11/2018 Gastrointestinal No nausea 09/11/2018 Gastrointestinal No vomiting 09/11/2018 Genitourinary/Nephrology No dysuria 09/11/2018 Musculoskeletal No stiffness 09/11/2018 Musculoskeletal No arthralgia(s) 09/11/2018 Dermatologic No rash Neurologic No alteration of consciousness 09/11/2018 Neurologic No mental status change 09/11/2018 Psychiatric No anxiety 0 09/11/2018 Psychiatric No depression 09/11/2018 Endocrine diabetes mellitus type 2 09/11/2018 Musculoskeletal joint complaint 09/11/2018 Constitutional fatigue 1 08/05/2017 Constitutional No fever 06/04/2018 Constitutional No insomnia 06/04/2018 Eyes No blindness 2017 Eyes No vision change Ears/Nose/Throat/Neck No dizziness 06/04/2018 Cardiovascular No chest pain/pressure 06/04/2018 Cardiovascular fatigue 1 08/05/2017 Cardiovascular hypertension 06/04/2018 Respiratory No chest congestion 06/04/2018 Respiratory cough 2017 Gastrointestinal No abdominal pain 06/04/2018 Gastrointestinal No constipation 06/04/2018 Gastrointestinal No diarrhea 06/04/2018 Gastrointestinal No nausea 06/04/2018 Gastrointestinal No vomiting 06/04/2018 Genitourinary/Nephrology No dysuria 06/04/2018 Genitourinary/Nephrology urinary inc ontinence 06/04/2018 Musculoskeletal No stiffness 06/04/2018 Musculoskeletal No arthralgia(s) 06/04/2018 Musculoskeletal back pain 06/04/2018 Musculoskeletal joint complaint 06/04/2018 Dermatologic No rash 03/2018 Neurologic No alteration of consciousness 06/04/2018 Neurologic No mental status change 06/04/2018 Psychiatric No anxiety 1 08/05/2017 Psychiatric No depression 06/04/2018 Endocrine diabetes mellitus type 2 06/04/2018 Constitutional recent illness 03/27/2018 Constitutional No anorexia 03/27/2018 Constitutional No night sweats 03/27/2018 Constitutional No chills 03/27/2018 Constitutional No diaphoresis 03/27/2018 Constitutional fatigue 1 Constitutional No fever 03/27/2018 Constitutional No insomnia 03/27/2018 Constitutional No malaise 03/27/2018 Constitutional No weight loss 03/27/2018 Constitutional No weight gain 03/27/2018 Eyes No eye discharge Eyes No eye erythema 07/2017 Ears/Nose/Throat/Neck No dizziness 03/27/2018 Ears/Nose/Throat/Neck No headache 03/27/2018 Ears/Nose/Throat/Neck nasal allergies 03/27/2018 Ears/Nose/Throat/Neck nasal discharge 03/27/2018 Ears/Nose/Throat/Neck sinus congestion 03/27/2018 Ears/Nose/Throat/Neck No sore throat 03/27/2018 Cardiovascular No chest pain/pressure 03/27/2018 Cardiovascular No dyspnea 03/27/2018 Cardiovascular No edema 03/27/2018 Respiratory productive sputum 03/27/2018 Respiratory cough 2017 Gastrointestinal No abdominal pain 03/27/2018 Gastrointestinal No constipation 03/27/2018 Gastrointestinal No diarrhea 03/27/2018 Genitourinary/Nephrology No dysuria 03/27/2018 Musculoskeletal No joint complaint 03/27/2018 Dermatologic No rash 07/2017 Neurologic No alteration of consciousness 03/27/2018 Psychiatric No anxiety 1 Endocrine No dry or coarse skin 03/27/2018 Constitutional fatigue 0 03/19/2018 Constitutional No fever 03/19/2018 Constitutional No insomnia 03/19/2018 Eyes No blindness 2017 Eyes No vision change Ears/Nose/Throat/Neck No dizziness 03/19/2018 Cardiovascular No chest pain/pressure 03/19/2018 Cardiovascular fatigue 0 03/19/2018 Cardiovascular hypertension 03/19/2018 Respiratory No chest congestion 03/19/2018 Respiratory No cough Gastrointestinal No abdominal pain 03/19/2018 Gastrointestinal No constipation 03/19/2018 Gastrointestinal No diarrhea 03/19/2018 Gastrointestinal No nausea 03/19/2018 Gastrointestinal No vomiting 03/19/2018 Genitourinary/Nephrology No dysuria 03/19/2018 Genitourinary/Nephrology urinary inc ontinence 03/19/2018 Musculoskeletal No stiffness 03/19/2018 Musculoskeletal No arthralgia(s) 03/19/2018 Musculoskeletal back pain 03/19/2018 Dermatologic No rash Neurologic No alteration of consciousness 03/19/2018 Neurologic No mental status change 03/19/2018 Psychiatric No anxiety 0 03/19/2018 Psychiatric No depression 03/19/2018 Endocrine diabetes mellitus type 2 03/19/2018 Musculoskeletal joint complaint 03/19/2018 Constitutional No recent illness 01/30/2018 Constitutional fatigue 0 01/30/2018 Constitutional No fever 01/30/2018 Constitutional No insomnia 01/30/2018 Eyes No blindness 2017 Eyes No vision change Ears/Nose/Throat/Neck No dizziness 01/30/2018 Cardiovascular No chest pain/pressure 01/30/2018 Cardiovascular fatigue 0 01/30/2018 Cardiovascular hypertension 01/30/2018 Respiratory No chest congestion 01/30/2018 Respiratory No cough 12/2017 Gastrointestinal No abdominal pain 01/30/2018 Gastrointestinal No constipation 01/30/2018 Gastrointestinal No diarrhea 01/30/2018 Gastrointestinal No nausea 01/30/2018 Gastrointestinal No vomiting 01/30/2018 Musculoskeletal No stiffness 01/30/2018 Musculoskeletal arthralgia(s) 01/30/2018 Musculoskeletal muscle weakness 01/30/2018 Musculoskeletal myalgias 01/30/2018 Dermatologic No rash 12/2017 Neurologic No alteration of consciousness 01/30/2018 Neurologic No mental status change 01/30/2018 Psychiatric No anxiety 0 01/30/2018 Psychiatric No depression 01/30/2018 Constitutional No recent illness 12/26/2017 Constitutional No fever 12/26/2017 Constitutional No insomnia 12/26/2017 Eyes No blindness 2017 Eyes No vision change Ears/Nose/Throat/Neck No dizziness 12/26/2017 Cardiovascular No chest pain/pressure 12/26/2017 Cardiovascular fatigue 0 12/26/2017 Cardiovascular hypertension 12/26/2017 Respiratory No chest congestion 12/26/2017 Respiratory No cough 08/2017 Gastrointestinal No abdominal pain 12/26/2017 Gastrointestinal No constipation 12/26/2017 Gastrointestinal No diarrhea 12/26/2017 Gastrointestinal No nausea 12/26/2017 Gastrointestinal No vomiting 12/26/2017 Musculoskeletal No stiffness 12/26/2017 Musculoskeletal No arthralgia(s) 12/26/2017 Dermatologic No rash 08/2017 Neurologic No alteration of consciousness 12/26/2017 Neurologic No mental status change 12/26/2017 Psychiatric No anxiety 0 12/26/2017 Psychiatric No depression 12/26/2017 Constitutional fatigue 0 12/26/2017 Musculoskeletal myalgias 12/26/2017 Musculoskeletal muscle weakness 12/26/2017 Genitourinary/Nephrology urinary frequency 12/26/2017 Constitutional No recent illness 11/21/2017 Constitutional No chills 11/21/2017 Constitutional No diaphoresis 11/21/2017 Constitutional No fever 11/21/2017 Eyes No eye erythema Ears/Nose/Throat/Neck No nasal discharge 11/21/2017 Ears/Nose/Throat/Neck No nasal allergies 11/21/2017 Cardiovascular No chest pain/pressure 11/21/2017 Cardiovascular No dyspnea 11/21/2017 Cardiovascular No palpitations 11/21/2017 Respiratory No cough Respiratory No chest congestion 11/21/2017 Gastrointestinal No abdominal pain 11/21/2017 Dermatologic No rash Neurologic No alteration of consciousness 11/21/2017 Neurologic No mental status change 11/21/2017 Constitutional fatigue 0 10/19/2017 Constitutional No fever 10/19/2017 Constitutional No insomnia 10/19/2017 Eyes No blindness 2017 Eyes No vision change Ears/Nose/Throat/Neck No dizziness 10/19/2017 Cardiovascular No chest pain/pressure 10/19/2017 Cardiovascular fatigue 0 10/19/2017 Cardiovascular hypertension 10/19/2017 Respiratory No chest congestion 10/19/2017 Respiratory No cough Gastrointestinal No abdominal pain 10/19/2017 Gastrointestinal No constipation 10/19/2017 Gastrointestinal No diarrhea 10/19/2017 Gastrointestinal No nausea 10/19/2017 Gastrointestinal No vomiting 10/19/2017 Musculoskeletal No stiffness 10/19/2017 Musculoskeletal No arthralgia(s) 10/19/2017 Musculoskeletal back pain 10/19/2017 Dermatologic No rash Neurologic No alteration of consciousness 10/19/2017 Neurologic No mental status change 10/19/2017 Psychiatric No anxiety 0 10/19/2017 Psychiatric No depression 10/19/2017 Endocrine diabetes mellitus type 2 10/19/2017 Gastrointestinal gastroesophageal reflux 10/19/2017 Genitourinary/Nephrology No dysuria 10/19/2017 Genitourinary/Nephrology urinary inc ontinence 10/19/2017 Constitutional fatigue 0 09/18/2017 Constitutional No fever 09/18/2017 Constitutional No insomnia 09/18/2017 Eyes No blindness 2017 Eyes No vision change Ears/Nose/Throat/Neck No dizziness 09/18/2017 Cardiovascular No chest pain/pressure 09/18/2017 Cardiovascular fatigue 0 09/18/2017 Cardiovascular hypertension 09/18/2017 Respiratory No chest congestion 09/18/2017 Respiratory No cough Gastrointestinal No abdominal pain 09/18/2017 Gastrointestinal No constipation 09/18/2017 Gastrointestinal No diarrhea 09/18/2017 Gastrointestinal No nausea 09/18/2017 Gastrointestinal No vomiting 09/18/2017 Genitourinary/Nephrology urinary frequency 09/18/2017 Musculoskeletal No stiffness 09/18/2017 Musculoskeletal No arthralgia(s) 09/18/2017 Musculoskeletal back pain 09/18/2017 Dermatologic No rash Neurologic No alteration of consciousness 09/18/2017 Neurologic No mental status change 09/18/2017 Psychiatric No anxiety 0 09/18/2017 Psychiatric No depression 09/18/2017 Endocrine diabetes mellitus type 2 09/18/2017 Constitutional No fever 07/21/2017 Eyes cataract 07/21/2017 Ears/Nose/Throat/Neck No dizziness 07/21/2017 Cardiovascular No chest pain/pressure 07/21/2017 Cardiovascular No syncope 07/21/2017 Respiratory No chest congestion 07/21/2017 Respiratory No cough Respiratory No dyspnea 0 07/21/2017 Gastrointestinal No abdominal pain 07/21/2017 Gastrointestinal No constipation 07/21/2017 Gastrointestinal No diarrhea 07/21/2017 Gastrointestinal No nausea 07/21/2017 Gastrointestinal No vomiting 07/21/2017 Musculoskeletal No stiffness 07/21/2017 Musculoskeletal No swelling 07/21/2017 Musculoskeletal No muscle weakness 07/21/2017 Musculoskeletal No myalgias 07/21/2017 Dermatologic No rash Neurologic No alteration of consciousness 07/21/2017 Neurologic No mental status change 07/21/2017 Psychiatric No anxiety 0 07/21/2017 Constitutional recent illness 07/21/2017 Constitutional No fever 05/04/2017 Eyes cataract 05/04/2017 Ears/Nose/Throat/Neck No dizziness 05/04/2017 Cardiovascular No chest pain/pressure 05/04/2017 Cardiovascular No syncope 05/04/2017 Respiratory No chest congestion 05/04/2017 Respiratory No cough 02/2017 Respiratory No dyspnea 1 07/04/2016 Gastrointestinal No abdominal pain 05/04/2017 Gastrointestinal No constipation 05/04/2017 Gastrointestinal No diarrhea 05/04/2017 Gastrointestinal No nausea 05/04/2017 Gastrointestinal No vomiting 05/04/2017 Dermatologic No rash 02/2017 Neurologic No alteration of consciousness 05/04/2017 Neurologic No mental status change 05/04/2017 Musculoskeletal No stiffness 05/04/2017 Musculoskeletal No swelling 05/04/2017 Musculoskeletal No muscle weakness 05/04/2017 Musculoskeletal No myalgias 05/04/2017 Psychiatric No anxiety 1 07/04/2016 Constitutional recent illness 03/30/2017 Constitutional fatigue 1 Constitutional malaise 1 Cardiovascular exercise intolerance 03/30/2017 Cardiovascular fatigue 1 Respiratory No chest congestion 03/30/2017 Respiratory No chest tightness 03/30/2017 Gastrointestinal No abdominal pain 03/30/2017 Psychiatric No anxiety 1 Psychiatric No depression 03/30/2017 Musculoskeletal stiffness 03/30/2017 Constitutional No fever 03/30/2017 Constitutional No insomnia 03/30/2017 Ears/Nose/Throat/Neck dizziness 03/30/2017 Cardiovascular No chest pain/pressure 03/30/2017 Cardiovascular hypertension 03/30/2017 Respiratory No cough 10/2016 Gastrointestinal No constipation 03/30/2017 Gastrointestinal No diarrhea 03/30/2017 Gastrointestinal No nausea 03/30/2017 Gastrointestinal No vomiting 03/30/2017 Genitourinary/Nephrology urinary frequency 03/30/2017 Musculoskeletal arthralgia(s) 03/30/2017 Musculoskeletal back pain 03/30/2017 Musculoskeletal muscle weakness 03/30/2017 Constitutional No fever 03/02/2017 Constitutional No insomnia 03/02/2017 Eyes No blindness 2016 Eyes No vision change Ears/Nose/Throat/Neck No dizziness 03/02/2017 Cardiovascular No chest pain/pressure 03/02/2017 Cardiovascular fatigue 0 03/02/2017 Cardiovascular hypertension 03/02/2017 Respiratory No chest congestion 03/02/2017 Respiratory No cough 12/2016 Gastrointestinal No abdominal pain 03/02/2017 Gastrointestinal No constipation 03/02/2017 Gastrointestinal No diarrhea 03/02/2017 Gastrointestinal No nausea 03/02/2017 Gastrointestinal No vomiting 03/02/2017 Genitourinary/Nephrology urinary frequency 03/02/2017 Musculoskeletal No stiffness 03/02/2017 Musculoskeletal No arthralgia(s) 03/02/2017 Musculoskeletal back pain 03/02/2017 Dermatologic No rash 12/2016 Neurologic No alteration of consciousness 03/02/2017 Neurologic No mental status change 03/02/2017 Psychiatric No anxiety 0 03/02/2017 Psychiatric No depression 03/02/2017 Constitutional No recent illness 03/02/2017 Constitutional fatigue 0 03/02/2017 Constitutional fatigue 0 01/31/2017 Constitutional No fever 01/31/2017 Constitutional No insomnia 01/31/2017 Eyes No blindness 2016 Eyes No vision change Ears/Nose/Throat/Neck dizziness 01/31/2017 Cardiovascular No chest pain/pressure 01/31/2017 Cardiovascular fatigue 0 01/31/2017 Cardiovascular hypertension 01/31/2017 Respiratory No chest congestion 01/31/2017 Respiratory No cough 01/2017 Gastrointestinal No abdominal pain 01/31/2017 Gastrointestinal No constipation 01/31/2017 Gastrointestinal No diarrhea 01/31/2017 Gastrointestinal No nausea 01/31/2017 Gastrointestinal No vomiting 01/31/2017 Genitourinary/Nephrology urinary frequency 01/31/2017 Musculoskeletal stiffness 01/31/2017 Musculoskeletal arthralgia(s) 01/31/2017 Musculoskeletal back pain 01/31/2017 Dermatologic No rash 01/2017 Neurologic No alteration of consciousness 01/31/2017 Neurologic No mental status change 01/31/2017 Psychiatric No anxiety 0 01/31/2017 Psychiatric No depression 01/31/2017 Musculoskeletal muscle weakness 01/31/2017 Constitutional fatigue 0 10/25/2016 Constitutional No fever 10/25/2016 Constitutional No insomnia 10/25/2016 Eyes No blindness 2016 Eyes No vision change Ears/Nose/Throat/Neck No dizziness 10/25/2016 Cardiovascular No chest pain/pressure 10/25/2016 Cardiovascular fatigue 0 10/25/2016 Cardiovascular hypertension 10/25/2016 Respiratory No chest congestion 10/25/2016 Respiratory No cough 07/2016 Gastrointestinal No abdominal pain 10/25/2016 Gastrointestinal No constipation 10/25/2016 Gastrointestinal No diarrhea 10/25/2016 Gastrointestinal No nausea 10/25/2016 Gastrointestinal No vomiting 10/25/2016 Genitourinary/Nephrology urinary frequency 10/25/2016 Musculoskeletal No stiffness 10/25/2016 Musculoskeletal No arthralgia(s) 10/25/2016 Musculoskeletal back pain 10/25/2016 Dermatologic No rash 07/2016 Neurologic No alteration of consciousness 10/25/2016 Neurologic No mental status change 10/25/2016 Psychiatric No anxiety 0 10/25/2016 Psychiatric No depression 10/25/2016 Constitutional fatigue 0 07/27/2016 Constitutional No fever 07/27/2016 Constitutional No insomnia 07/27/2016 Eyes No blindness 2016 Eyes No vision change Ears/Nose/Throat/Neck No dizziness 07/27/2016 Cardiovascular No chest pain/pressure 07/27/2016 Cardiovascular fatigue 0 07/27/2016 Cardiovascular hypertension 07/27/2016 Respiratory No chest congestion 07/27/2016 Respiratory No cough 06/2016 Gastrointestinal No abdominal pain 07/27/2016 Gastrointestinal No constipation 07/27/2016 Gastrointestinal No diarrhea 07/27/2016 Gastrointestinal No nausea 07/27/2016 Gastrointestinal No vomiting 07/27/2016 Genitourinary/Nephrology urinary frequency 07/27/2016 Musculoskeletal No stiffness 07/27/2016 Musculoskeletal No arthralgia(s) 07/27/2016 Musculoskeletal back pain 07/27/2016 Dermatologic No rash 06/2016 Neurologic No alteration of consciousness 07/27/2016 Neurologic No mental status change 07/27/2016 Psychiatric No anxiety 0 07/27/2016 Psychiatric No depression 07/27/2016 Constitutional fatigue 1 07/27/2015 Constitutional No fever 05/26/2016 Constitutional No insomnia 05/26/2016 Eyes No blindness 2015 Eyes No vision change Ears/Nose/Throat/Neck No dizziness 05/26/2016 Cardiovascular No chest pain/pressure 05/26/2016 Cardiovascular fatigue 1 07/27/2015 Cardiovascular hypertension 05/26/2016 Respiratory No chest congestion 05/26/2016 Respiratory No cough 06/2015 Gastrointestinal No abdominal pain 05/26/2016 Gastrointestinal No constipation 05/26/2016 Gastrointestinal No diarrhea 05/26/2016 Gastrointestinal No nausea 05/26/2016 Gastrointestinal No vomiting 05/26/2016 Genitourinary/Nephrology urinary frequency 05/26/2016 Musculoskeletal No stiffness 05/26/2016 Musculoskeletal No arthralgia(s) 05/26/2016 Musculoskeletal back pain 05/26/2016 Dermatologic No rash 06/2015 Neurologic No alteration of consciousness 05/26/2016 Neurologic No mental status change 05/26/2016 Psychiatric No anxiety 1 07/27/2015 Psychiatric No depression 05/26/2016 Constitutional fatigue 1 07/12/2015 Constitutional No fever 05/12/2016 Constitutional No insomnia 05/12/2016 Eyes No blindness 2015 Eyes No vision change Ears/Nose/Throat/Neck No dizziness 05/12/2016 Cardiovascular No chest pain/pressure 05/12/2016 Cardiovascular fatigue 1 07/12/2015 Cardiovascular hypertension 05/12/2016 Respiratory No chest congestion 05/12/2016 Respiratory No cough Gastrointestinal No abdominal pain 05/12/2016 Gastrointestinal No constipation 05/12/2016 Gastrointestinal No diarrhea 05/12/2016 Gastrointestinal No nausea 05/12/2016 Gastrointestinal No vomiting 05/12/2016 Genitourinary/Nephrology urinary frequency 05/12/2016 Musculoskeletal No stiffness 05/12/2016 Musculoskeletal No arthralgia(s) 05/12/2016 Musculoskeletal back pain 05/12/2016 Dermatologic No rash Neurologic No alteration of consciousness 05/12/2016 Neurologic No mental status change 05/12/2016 Psychiatric No anxiety 1 07/12/2015 Psychiatric No depression 05/12/2016 Constitutional fatigue 0 02/23/2016 Constitutional No fever 02/23/2016 Constitutional No insomnia 02/23/2016 Eyes No blindness 2015 Eyes No vision change Ears/Nose/Throat/Neck No dizziness 02/23/2016 Cardiovascular No chest pain/pressure 02/23/2016 Cardiovascular fatigue 0 02/23/2016 Cardiovascular hypertension 02/23/2016 Respiratory No chest congestion 02/23/2016 Respiratory No cough Gastrointestinal No abdominal pain 02/23/2016 Gastrointestinal No constipation 02/23/2016 Gastrointestinal No diarrhea 02/23/2016 Gastrointestinal No nausea 02/23/2016 Gastrointestinal No vomiting 02/23/2016 Genitourinary/Nephrology urinary frequency 02/23/2016 Musculoskeletal No stiffness 02/23/2016 Musculoskeletal No arthralgia(s) 02/23/2016 Musculoskeletal back pain 02/23/2016 Dermatologic No rash Neurologic No alteration of consciousness 02/23/2016 Neurologic No mental status change 02/23/2016 Psychiatric No anxiety 0 02/23/2016 Psychiatric No depression 02/23/2016 Constitutional fatigue 0 12/10/2015 Constitutional No fever 12/10/2015 Constitutional No insomnia 12/10/2015 Eyes No blindness 2015 Eyes No vision change Ears/Nose/Throat/Neck No dizziness 12/10/2015 Cardiovascular No chest pain/pressure 12/10/2015 Cardiovascular fatigue 0 12/10/2015 Cardiovascular hypertension 12/10/2015 Respiratory No chest congestion 12/10/2015 Respiratory No cough Gastrointestinal No abdominal pain 12/10/2015 Gastrointestinal No constipation 12/10/2015 Gastrointestinal No diarrhea 12/10/2015 Gastrointestinal No nausea 12/10/2015 Gastrointestinal No vomiting 12/10/2015 Genitourinary/Nephrology urinary frequency 12/10/2015 Musculoskeletal No stiffness 12/10/2015 Musculoskeletal No arthralgia(s) 12/10/2015 Musculoskeletal back pain 12/10/2015 Dermatologic No rash Neurologic No alteration of consciousness 12/10/2015 Neurologic No mental status change 12/10/2015 Psychiatric No anxiety 0 12/10/2015 Psychiatric No depression 12/10/2015 Constitutional fatigue 0 11/10/2015 Constitutional No fever 11/10/2015 Constitutional No insomnia 11/10/2015 Eyes No blindness 2015 Eyes No vision change Ears/Nose/Throat/Neck No dizziness 11/10/2015 Cardiovascular No chest pain/pressure 11/10/2015 Cardiovascular fatigue 0 11/10/2015 Cardiovascular hypertension 11/10/2015 Respiratory No chest congestion 11/10/2015 Respiratory No cough Gastrointestinal No abdominal pain 11/10/2015 Gastrointestinal No constipation 11/10/2015 Gastrointestinal No diarrhea 11/10/2015 Gastrointestinal No nausea 11/10/2015 Gastrointestinal No vomiting 11/10/2015 Genitourinary/Nephrology urinary frequency 11/10/2015 Musculoskeletal No stiffness 11/10/2015 Musculoskeletal No arthralgia(s) 11/10/2015 Musculoskeletal back pain 11/10/2015 Dermatologic No rash Neurologic No alteration of consciousness 11/10/2015 Neurologic No mental status change 11/10/2015 Psychiatric No anxiety 0 11/10/2015 Psychiatric No depression 11/10/2015 Constitutional fatigue 0 08/07/2015 Constitutional No fever 08/07/2015 Constitutional No insomnia 08/07/2015 Eyes No blindness 2015 Eyes No vision change Ears/Nose/Throat/Neck No dizziness 08/07/2015 Cardiovascular No chest pain/pressure 08/07/2015 Cardiovascular dyspnea 0 08/07/2015 Cardiovascular edema 05/2016 Cardiovascular fatigue 0 08/07/2015 Cardiovascular hypertension 08/07/2015 Respiratory No chest congestion 08/07/2015 Respiratory No cough 05/2016 Gastrointestinal No abdominal pain 08/07/2015 Gastrointestinal No constipation 08/07/2015 Gastrointestinal No diarrhea 08/07/2015 Gastrointestinal No nausea 08/07/2015 Gastrointestinal No vomiting 08/07/2015 Genitourinary/Nephrology urinary frequency 08/07/2015 Musculoskeletal No stiffness 08/07/2015 Musculoskeletal No arthralgia(s) 08/07/2015 Musculoskeletal back pain 08/07/2015 Dermatologic No rash 05/2016 Neurologic No alteration of consciousness 08/07/2015 Neurologic No mental status change 08/07/2015 Psychiatric No anxiety 0 08/07/2015 Psychiatric No depression 08/07/2015 Constitutional fatigue 0 07/07/2015 Constitutional No fever 07/07/2015 Constitutional No insomnia 07/07/2015 Eyes No blindness 2015 Eyes No vision change Ears/Nose/Throat/Neck No dizziness 07/07/2015 Cardiovascular No chest pain/pressure 07/07/2015 Cardiovascular dyspnea 0 07/07/2015 Cardiovascular edema 05/2016 Cardiovascular fatigue 0 07/07/2015 Cardiovascular hypertension 07/07/2015 Respiratory No chest congestion 07/07/2015 Respiratory No cough 05/2016 Gastrointestinal No abdominal pain 07/07/2015 Gastrointestinal No constipation 07/07/2015 Gastrointestinal No diarrhea 07/07/2015 Gastrointestinal No nausea 07/07/2015 Gastrointestinal No vomiting 07/07/2015 Genitourinary/Nephrology urinary frequency 07/07/2015 Musculoskeletal No stiffness 07/07/2015 Musculoskeletal No arthralgia(s) 07/07/2015 Dermatologic No rash 05/2016 Neurologic No alteration of consciousness 07/07/2015 Neurologic No mental status change 07/07/2015 Psychiatric No anxiety 0 07/07/2015 Psychiatric No depression 07/07/2015 Musculoskeletal back pain 07/07/2015 Constitutional No chills 04/02/2015 Constitutional No fever 04/02/2015 Constitutional fatigue 1 Eyes No eye discharge Ears/Nose/Throat/Neck No nasal allergies 04/02/2015 Constitutional No recent illness 04/02/2015 Cardiovascular No dyspnea 04/02/2015 Cardiovascular fatigue 1 Respiratory No chest congestion 04/02/2015 Respiratory No cough 01/2015 Gastrointestinal dyspepsia 04/02/2015 Gastrointestinal No constipation 04/02/2015 Gastrointestinal No diarrhea 04/02/2015 Gastrointestinal gastroesophageal reflux 04/02/2015 Dermatologic erythema Constitutional fatigue 0 12/23/2014 Constitutional No insomnia 12/23/2014 Ears/Nose/Throat/Neck postnasal drip 12/23/2014 Cardiovascular fatigue 0 12/23/2014 Respiratory No chest congestion 12/23/2014 Respiratory No cough Gastrointestinal No abdominal pain 12/23/2014 Gastrointestinal No constipation 12/23/2014 Gastrointestinal No diarrhea 12/23/2014 Genitourinary/Nephrology urinary frequency 12/23/2014 Constitutional No fever 12/23/2014 Eyes No blindness 2014 Eyes No vision change Ears/Nose/Throat/Neck No dizziness 12/23/2014 Cardiovascular No chest pain/pressure 12/23/2014 Cardiovascular dyspnea 0 12/23/2014 Cardiovascular edema Cardiovascular hypertension 12/23/2014 Gastrointestinal No nausea 12/23/2014 Gastrointestinal No vomiting 12/23/2014 Musculoskeletal No stiffness 12/23/2014 Musculoskeletal No arthralgia(s) 12/23/2014 Dermatologic No rash Neurologic No alteration of consciousness 12/23/2014 Neurologic No mental status change 12/23/2014 Psychiatric No anxiety 0 12/23/2014 Psychiatric No depression 12/23/2014 Constitutional fatigue 0 10/22/2014 Constitutional No insomnia 10/22/2014 Cardiovascular dyspnea 0 10/22/2014 Cardiovascular No chest pain/pressure 10/22/2014 Respiratory No chest congestion 10/22/2014 Respiratory No cough Gastrointestinal No constipation 10/22/2014 Gastrointestinal No diarrhea 10/22/2014 Gastrointestinal No abdominal pain 10/22/2014 Constitutional No fever 10/22/2014 Eyes No blindness 2014 Eyes No vision change Ears/Nose/Throat/Neck No dizziness 10/22/2014 Cardiovascular edema Cardiovascular hypertension 10/22/2014 Gastrointestinal No nausea 10/22/2014 Gastrointestinal No vomiting 10/22/2014 Musculoskeletal No stiffness 10/22/2014 Musculoskeletal No arthralgia(s) 10/22/2014 Dermatologic No rash Neurologic No alteration of consciousness 10/22/2014 Neurologic No mental status change 10/22/2014 Psychiatric No anxiety 0 10/22/2014 Psychiatric No depression 10/22/2014 Constitutional recent illness 09/26/2014 Constitutional No anorexia 09/26/2014 Constitutional No night sweats 09/26/2014 Constitutional chills Constitutional diaphoresis 09/26/2014 Constitutional fatigue 0 09/26/2014 Constitutional fever 08/2014 Constitutional No insomnia 09/26/2014 Constitutional No malaise 09/26/2014 Constitutional No weight loss 09/26/2014 Constitutional No weight gain 09/26/2014 Eyes No eye discharge Eyes No eye erythema 08/2014 Ears/Nose/Throat/Neck No dizziness 09/26/2014 Ears/Nose/Throat/Neck nasal allergies 09/26/2014 Ears/Nose/Throat/Neck nasal discharge 09/26/2014 Ears/Nose/Throat/Neck No otalgia 09/26/2014 Ears/Nose/Throat/Neck sinus congestion 09/26/2014 Ears/Nose/Throat/Neck No sore throat 09/26/2014 Respiratory productive sputum 09/26/2014 Respiratory cough 2014 Gastrointestinal No constipation 09/26/2014 Gastrointestinal No diarrhea 09/26/2014 Genitourinary/Nephrology No dysuria 09/26/2014 Cardiovascular No chest pain/pressure 09/26/2014 Musculoskeletal No joint complaint 09/26/2014 Dermatologic No rash 08/2014 Dermatologic No sores Neurologic No alteration of consciousness 09/26/2014 Constitutional No fever 07/01/2014 Eyes No blindness 2014 Eyes No vision change Ears/Nose/Throat/Neck No dizziness 07/01/2014 Cardiovascular edema 11/2014 Cardiovascular fatigue 0 07/01/2014 Cardiovascular hypertension 07/01/2014 Respiratory No chest congestion 07/01/2014 Respiratory No cough 11/2014 Respiratory No dyspnea 0 07/01/2014 Gastrointestinal No abdominal pain 07/01/2014 Gastrointestinal No constipation 07/01/2014 Gastrointestinal No diarrhea 07/01/2014 Gastrointestinal No nausea 07/01/2014 Gastrointestinal No vomiting 07/01/2014 Musculoskeletal No stiffness 07/01/2014 Musculoskeletal No arthralgia(s) 07/01/2014 Dermatologic No rash 11/2014 Neurologic No alteration of consciousness 07/01/2014 Neurologic No mental status change 07/01/2014 Psychiatric No anxiety 0 07/01/2014 Psychiatric No depression 07/01/2014 Constitutional No fever 06/09/2014 Eyes No blindness 2013 Eyes No vision change Ears/Nose/Throat/Neck No dizziness 06/09/2014 Cardiovascular edema Cardiovascular fatigue 1 08/10/2013 Cardiovascular hypertension 06/09/2014 Respiratory No chest congestion 06/09/2014 Respiratory No cough Respiratory No dyspnea 1 08/10/2013 Gastrointestinal No abdominal pain 06/09/2014 Gastrointestinal No constipation 06/09/2014 Gastrointestinal No diarrhea 06/09/2014 Gastrointestinal No nausea 06/09/2014 Gastrointestinal No vomiting 06/09/2014 Musculoskeletal No stiffness 06/09/2014 Musculoskeletal No arthralgia(s) 06/09/2014 Dermatologic No rash Neurologic No alteration of consciousness 06/09/2014 Neurologic No mental status change 06/09/2014 Psychiatric No anxiety 1 08/10/2013 Psychiatric No depression 06/09/2014 Constitutional No fever 05/07/2014 Eyes No blindness 2013 Eyes No vision change Ears/Nose/Throat/Neck No dizziness 05/07/2014 Respiratory No chest congestion 05/07/2014 Respiratory No cough 05/2014 Respiratory No dyspnea 1 07/07/2013 Gastrointestinal No abdominal pain 05/07/2014 Gastrointestinal No constipation 05/07/2014 Gastrointestinal No diarrhea 05/07/2014 Gastrointestinal No nausea 05/07/2014 Gastrointestinal No vomiting 05/07/2014 Musculoskeletal No stiffness 05/07/2014 Musculoskeletal No arthralgia(s) 05/07/2014 Dermatologic No rash 05/2014 Neurologic No alteration of consciousness 05/07/2014 Neurologic No mental status change 05/07/2014 Cardiovascular hypertension 05/07/2014 Cardiovascular fatigue 1 07/07/2013 Cardiovascular edema 05/2014 Psychiatric No anxiety 1 07/07/2013 Psychiatric No depression 05/07/2014 Eyes No blindness 2013 Eyes No vision change Respiratory No chest congestion 04/21/2014 Respiratory No cough Respiratory No dyspnea 1 Gastrointestinal No abdominal pain 04/21/2014 Gastrointestinal No constipation 04/21/2014 Gastrointestinal No diarrhea 04/21/2014 Gastrointestinal nausea 04/21/2014 Musculoskeletal No stiffness 04/21/2014 Musculoskeletal No arthralgia(s) 04/21/2014 Dermatologic No rash Neurologic No alteration of consciousness 04/21/2014 Neurologic No mental status change 04/21/2014 Constitutional recent illness 04/21/2014 Constitutional fatigue 1 Constitutional fever Constitutional malaise 1 Constitutional weight loss 04/21/2014 Constitutional chills Ears/Nose/Throat/Neck No headache 04/21/2014 Ears/Nose/Throat/Neck No facial weakness 04/21/2014 Ears/Nose/Throat/Neck dizziness 04/21/2014 Cardiovascular No chest pain/pressure 04/21/2014 Cardiovascular dyspnea 1 Cardiovascular edema Cardiovascular fatigue 1 Genitourinary/Nephrology dysuria 04/21/2014 Genitourinary/Nephrology urinary urgency 04/21/2014 Genitourinary/Nephrology urinary frequency 04/21/2014 Psychiatric No anxiety 1 Psychiatric No depression 04/21/2014 Constitutional recent illness 02/14/2014 Constitutional No chills 02/14/2014 Constitutional No fatigue 02/14/2014 Constitutional No fever 02/14/2014 Constitutional No insomnia 02/14/2014 Constitutional No malaise 02/14/2014 Cardiovascular No chest pain/pressure 02/14/2014 Cardiovascular No dyspnea 02/14/2014 Cardiovascular No edema 02/14/2014 Cardiovascular No exercise intolerance 02/14/2014 Cardiovascular No fatigue 02/14/2014 Cardiovascular No near-syncope/dizziness 02/14/2014 Respiratory No chest tightness 02/14/2014 Respiratory No cigarette smoking 02/14/2014 Respiratory No cough Respiratory No dyspnea 0 02/14/2014 Respiratory No pedal edema 02/14/2014 Respiratory No snoring 0 02/14/2014 Respiratory No wheezing 02/14/2014 Musculoskeletal No stiffness 02/14/2014 Musculoskeletal No swelling 02/14/2014 Musculoskeletal No muscle weakness 02/14/2014 Musculoskeletal No myalgias 02/14/2014 Genitourinary/Nephrology No dysuria 02/14/2014 Genitourinary/Nephrology No nocturia 02/14/2014 Genitourinary/Nephrology No urinary incontinence 02/14/2014 Eyes No blindness 2013 Eyes No vision change Ears/Nose/Throat/Neck No dizziness 02/14/2014 Respiratory No chest congestion 02/14/2014 Gastrointestinal No abdominal pain 02/14/2014 Gastrointestinal No constipation 02/14/2014 Gastrointestinal No diarrhea 02/14/2014 Gastrointestinal No nausea 02/14/2014 Gastrointestinal No vomiting 02/14/2014 Musculoskeletal No arthralgia(s) 02/14/2014 Neurologic No alteration of consciousness 02/14/2014 Neurologic No mental status change 02/14/2014 Constitutional No fever 11/14/2013 Eyes No blindness 2013 Eyes No vision change Ears/Nose/Throat/Neck No dizziness 11/14/2013 Respiratory No chest congestion 11/14/2013 Respiratory No cough Respiratory No dyspnea 0 11/14/2013 Gastrointestinal No abdominal pain 11/14/2013 Gastrointestinal No constipation 11/14/2013 Gastrointestinal No diarrhea 11/14/2013 Gastrointestinal No nausea 11/14/2013 Gastrointestinal No vomiting 11/14/2013 Musculoskeletal No stiffness 11/14/2013 Musculoskeletal No arthralgia(s) 11/14/2013 Dermatologic No rash Neurologic No alteration of consciousness 11/14/2013 Neurologic No mental status change 11/14/2013 Constitutional No fever 10/24/2013 Eyes No blindness 2013 Eyes No vision change Ears/Nose/Throat/Neck No dizziness 10/24/2013 Respiratory No chest congestion 10/24/2013 Respiratory No cough 06/2013 Respiratory No dyspnea 0 10/24/2013 Gastrointestinal No abdominal pain 10/24/2013 Gastrointestinal No constipation 10/24/2013 Gastrointestinal No diarrhea 10/24/2013 Gastrointestinal No nausea 10/24/2013 Gastrointestinal No vomiting 10/24/2013 Musculoskeletal No stiffness 10/24/2013 Musculoskeletal No arthralgia(s) 10/24/2013 Dermatologic No rash 06/2013 Neurologic No alteration of consciousness 10/24/2013 Neurologic No mental status change 10/24/2013 Constitutional No fever 06/24/2013 Eyes No blindness 2012 Eyes No vision change Ears/Nose/Throat/Neck No dizziness 06/24/2013 Respiratory No chest congestion 06/24/2013 Respiratory No cough Respiratory No dyspnea 1 Gastrointestinal abdominal pain 06/24/2013 Gastrointestinal No constipation 06/24/2013 Gastrointestinal No diarrhea 06/24/2013 Gastrointestinal gas and bloating 06/24/2013 Gastrointestinal gastroesophageal reflux 06/24/2013 Gastrointestinal No nausea 06/24/2013 Gastrointestinal No vomiting 06/24/2013 Musculoskeletal No stiffness 06/24/2013 Musculoskeletal No arthralgia(s) 06/24/2013 Dermatologic No rash Neurologic No alteration of consciousness 06/24/2013 Neurologic No mental status change 06/24/2013 Constitutional No fever 06/05/2013 Eyes No blindness 2012 Eyes No vision change Ears/Nose/Throat/Neck No dizziness 06/05/2013 Respiratory No chest congestion 06/05/2013 Respiratory No cough 04/2013 Respiratory No dyspnea 1 08/06/2012 Gastrointestinal abdominal pain 06/05/2013 Gastrointestinal No constipation 06/05/2013 Gastrointestinal No diarrhea 06/05/2013 Gastrointestinal No nausea 06/05/2013 Gastrointestinal No vomiting 06/05/2013 Musculoskeletal No stiffness 06/05/2013 Musculoskeletal No arthralgia(s) 06/05/2013 Dermatologic No rash 04/2013 Neurologic No alteration of consciousness 06/05/2013 Neurologic No mental status change 06/05/2013 Gastrointestinal gas and bloating 06/05/2013 Gastrointestinal gastroesophageal reflux 06/05/2013 Constitutional No fever 04/01/2013 Ears/Nose/Throat/Neck No dizziness 04/01/2013 Respiratory No chest congestion 04/01/2013 Respiratory No cough 12/2012 Respiratory No dyspnea 1 Gastrointestinal No abdominal pain 04/01/2013 Gastrointestinal No constipation 04/01/2013 Gastrointestinal No diarrhea 04/01/2013 Gastrointestinal No nausea 04/01/2013 Gastrointestinal No vomiting 04/01/2013 Musculoskeletal No stiffness 04/01/2013 Musculoskeletal No arthralgia(s) 04/01/2013 Dermatologic No rash 12/2012 Neurologic No alteration of consciousness 04/01/2013 Neurologic No mental status change 04/01/2013 Eyes No blindness 2012 Eyes No vision change Constitutional No fever 01/29/2013 Ears/Nose/Throat/Neck No dizziness 01/29/2013 Respiratory No chest congestion 01/29/2013 Respiratory No cough 11/2012 Respiratory No dyspnea 0 01/29/2013 Gastrointestinal No abdominal pain 01/29/2013 Gastrointestinal No constipation 01/29/2013 Gastrointestinal No diarrhea 01/29/2013 Gastrointestinal No nausea 01/29/2013 Gastrointestinal No vomiting 01/29/2013 Musculoskeletal No stiffness 01/29/2013 Musculoskeletal No arthralgia(s) 01/29/2013 Dermatologic No rash 11/2012 Neurologic No alteration of consciousness 01/29/2013 Neurologic No mental status change 01/29/2013 Constitutional No fever 12/25/2012 Ears/Nose/Throat/Neck No dizziness 12/25/2012 Respiratory No chest congestion 12/25/2012 Respiratory No cough 07/2012 Respiratory No dyspnea 0 12/25/2012 Gastrointestinal No abdominal pain 12/25/2012 Gastrointestinal No constipation 12/25/2012 Gastrointestinal No diarrhea 12/25/2012 Gastrointestinal No nausea 12/25/2012 Gastrointestinal No vomiting 12/25/2012 Musculoskeletal No stiffness 12/25/2012 Musculoskeletal No arthralgia(s) 12/25/2012 Dermatologic No rash 07/2012 Neurologic No alteration of consciousness 12/25/2012 Neurologic No mental status change 12/25/2012 Constitutional No fever 10/01/2012 Ears/Nose/Throat/Neck No dizziness 10/01/2012 Respiratory No chest congestion 10/01/2012 Respiratory No cough 01/2013 Respiratory No dyspnea 0 10/01/2012 Gastrointestinal No abdominal pain 10/01/2012 Gastrointestinal No constipation 10/01/2012 Gastrointestinal No diarrhea 10/01/2012 Gastrointestinal No nausea 10/01/2012 Gastrointestinal No vomiting 10/01/2012 Dermatologic No rash 01/2013 Neurologic No alteration of consciousness 10/01/2012 Neurologic No mental status change 10/01/2012 Musculoskeletal No arthralgia(s) 10/01/2012 Musculoskeletal No stiffness 10/01/2012 Gastrointestinal No abdominal pain 06/29/2012 Gastrointestinal No constipation 06/29/2012 Gastrointestinal No diarrhea 06/29/2012 Gastrointestinal No nausea 06/29/2012 Gastrointestinal No vomiting 06/29/2012 Genitourinary/Nephrology No dysuria 06/29/2012 Cardiovascular No chest pain/pressure 06/29/2012 Ears/Nose/Throat/Neck No dizziness 06/29/2012 Ears/Nose/Throat/Neck No headache 06/29/2012 Ears/Nose/Throat/Neck nasal allergies 06/29/2012 Ears/Nose/Throat/Neck nasal discharge 06/29/2012 Ears/Nose/Throat/Neck sinus congestion 06/29/2012 Ears/Nose/Throat/Neck sore throat 06/29/2012 Ears/Nose/Throat/Neck No otalgia 06/29/2012 Eyes No eye discharge Eyes No eye erythema 09/2012 Constitutional No fatigue 06/29/2012 Constitutional recent illness 06/29/2012 Constitutional No night sweats 06/29/2012 Constitutional No anorexia 06/29/2012 Constitutional chills Constitutional diaphoresis 06/29/2012 Constitutional fever 09/2012 Musculoskeletal No joint complaint 06/29/2012 Dermatologic No sores Dermatologic No rash 09/2012 Constitutional recent illness 05/28/2012 Constitutional No chills 05/28/2012 Constitutional No fatigue 05/28/2012 Constitutional fever 08/2011 Constitutional No insomnia 05/28/2012 Constitutional No malaise 05/28/2012 Cardiovascular No chest pain/pressure 05/28/2012 Cardiovascular No dyspnea 05/28/2012 Cardiovascular No edema 05/28/2012 Cardiovascular No exercise intolerance 05/28/2012 Cardiovascular No fatigue 05/28/2012 Cardiovascular No near-syncope/dizziness 05/28/2012 Gastrointestinal No hemorrhoids 05/28/2012 Gastrointestinal No abdominal pain 05/28/2012 Gastrointestinal No constipation 05/28/2012 Gastrointestinal No diarrhea 05/28/2012 Gastrointestinal No gastroesophageal reflu x 05/28/2012 Gastrointestinal No melena 05/28/2012 Gastrointestinal No nausea 05/28/2012 Gastrointestinal No vomiting 05/28/2012 Genitourinary/Nephrology No dysuria 05/28/2012 Genitourinary/Nephrology No nocturia 05/28/2012 Genitourinary/Nephrology No urinary incontinence 05/28/2012 Dermatologic No rash 08/2011 Dermatologic No scar 08/2011 Cardiovascular No syncope 04/02/2012 Constitutional No fever 04/02/2012 Dermatologic No rash 01/2012 Gastrointestinal No abdominal pain 04/02/2012 Neurologic No alteration of consciousness 04/02/2012 Neurologic No mental status change 04/02/2012 Respiratory No chest congestion 04/02/2012 Respiratory No cough 01/2012 Eyes cataract 04/02/2012 Ears/Nose/Throat/Neck No dizziness 04/02/2012 Cardiovascular No chest pain/pressure 04/02/2012 Respiratory No dyspnea 1 Gastrointestinal No constipation 04/02/2012 Gastrointestinal No diarrhea 04/02/2012 Gastrointestinal No nausea 04/02/2012 Gastrointestinal No vomiting 04/02/2012 Constitutional recent illness 01/24/2012 Constitutional No anorexia 01/24/2012 Constitutional No night sweats 01/24/2012 Constitutional No chills 01/24/2012 Constitutional No diaphoresis 01/24/2012 Constitutional No insomnia 01/24/2012 Constitutional No fever 01/24/2012 Constitutional fatigue 0 01/24/2012 Eyes No eye discharge Eyes No eye erythema Cardiovascular No chest pain/pressure 01/24/2012 Gastrointestinal No vomiting 01/24/2012 Gastrointestinal No nausea 01/24/2012 Gastrointestinal No abdominal pain 01/24/2012 Gastrointestinal No constipation 01/24/2012 Gastrointestinal No diarrhea 01/24/2012 Genitourinary/Nephrology No dysuria 01/24/2012 Musculoskeletal No joint complaint 01/24/2012 Dermatologic No rash Dermatologic No sores Constitutional No fever 10/03/2011 Eyes cataract 10/03/2011 Ears/Nose/Throat/Neck No dizziness 10/03/2011 Cardiovascular No chest pain/pressure 10/03/2011 Respiratory No dyspnea 0 10/03/2011 Gastrointestinal No vomiting 10/03/2011 Gastrointestinal No nausea 10/03/2011 Gastrointestinal No diarrhea 10/03/2011 Gastrointestinal No constipation 10/03/2011 Cardiovascular No syncope 10/03/2011 Respiratory No chest congestion 10/03/2011 Respiratory No cough 02/2012 Gastrointestinal No abdominal pain 10/03/2011 Dermatologic No rash 02/2012 Neurologic No alteration of consciousness 10/03/2011 Neurologic No mental status change 10/03/2011 Constitutional No fever 05/30/2011 Constitutional No chills 05/30/2011 Constitutional No fatigue 05/30/2011 Cardiovascular No chest pain/pressure 05/30/2011 Gastrointestinal No nausea 05/30/2011 Gastrointestinal No vomiting 05/30/2011 Dermatologic No rash 10/2010 Dermatologic No sores Musculoskeletal No stiffness 05/30/2011 Musculoskeletal No arthralgia(s) 05/30/2011 Physical Exam Exam Name System Name It em Name Status Result Effective Dates Notes Full Exam - General 1994 Constitutional general appearance Overall: well developed 05/04/2017 None Full Exam - General 1994 Constitutional general appearance Overall: in no acute distress 05/04/2017 None Full Exam - General 1994 Constitutional general appearance Overall: well nourished 05/04/2017 None Full Exam - General 1994 Eyes pupils and irises Overall: pupils equal, round, reactive to light and accomodation 05/04/2017 None Full Exam - General 1994 Ears/Nose/Throat otoscopic exam Overall: external auditory canals clear 05/04/2017 None Full Exam - General 1994 Ears/Nose/Throat otoscopic exam Overall: tympanic membranes clear 05/04/2017 None Full Exam - General 1994 Ears/Nose/Throat oral cavity/pharynx/larynx Overall: oral mucosa clear 05/04/2017 None Full Exam - General 1994 Ears/Nose/Throat oral cavity/pharynx/larynx Overall: oropharyngeal mucosa clear 05/04/2017 None Full Exam - General 1994 Ears/Nose/Throat oral cavity/pharynx/larynx Overall: no masses 05/04/2017 None Full Exam - General 1994 Respiratory auscultation Overall: breath sounds clear bilaterally 05/04/2017 None Full Exam - General 1994 Respiratory respiratory effort/rhythm Overall: no retractions 05/04/2017 None Full Exam - General 1994 Respiratory respiratory effort/rhythm Overall: normal rate 05/04/2017 None Full Exam - General 1994 Cardiovascular auscultation of heart Overall: regular rate 05/04/2017 None Full Exam - General 1994 Cardiovascular auscultation of heart Overall: normal heart sounds 05/04/2017 None Full Exam - General 1994 Cardiovascular auscultation of heart Overall: no murmurs 05/04/2017 None Full Exam - General 1994 Abdomen abdominal exam Overall: no tenderness 05/04/2017 None Full Exam - General 1994 Abdomen abdominal exam Overall: normal bowel sounds 05/04/2017 None Full Exam - General 1994 Abdomen abdominal exam Contour: rounded 05/04/2017 None Full Exam - General 1994 Musculoskeletal digits and nails Overall: no clubbing 05/04/2017 None Full Exam - General 1994 Musculoskeletal digits and nails Overall: digits benign 05/04/2017 None Full Exam - General 1994 Musculoskeletal spine, ribs and pelvis Overall: spine benign 05/04/2017 None Full Exam - General 1994 Musculoskeletal spine, ribs and pelvis Overall: sacroiliac joint benign 05/04/2017 None Full Exam - General 1994 Musculoskeletal spine, ribs and pelvis Overall: good posture 05/04/2017 None Full Exam - General 1994 Musculoskeletal gait and station Overall: normal gait 05/04/2017 None Full Exam - General 1994 Musculoskeletal gait and station Overall: normal station 05/04/2017 None Full Exam - General 1994 Neurologic gait Overall: no ataxia, no unsteadiness 05/04/2017 None Full Exam - General 1994 Psychiatric orientation/consciousness Overall: oriented to person, place and time 05/04/2017 None Full Exam - General 1994 Psychiatric mood and affect Overall: normal mood and affect 05/04/2017 None Full Exam - General 1994 Constitutional general appearance Overall: well developed 03/30/2017 None Full Exam - General 1994 Constitutional general appearance Overall: in no acute distress 03/30/2017 None Full Exam - General 1994 Constitutional general appearance Overall: well nourished 03/30/2017 None Full Exam - General 1994 Eyes pupils and irises Overall: pupils equal, round, reactive to light and accomodation 03/30/2017 None Full Exam - General 1994 Ears/Nose/Throat oral cavity/pharynx/larynx Overall: oral mucosa clear 03/30/2017 None Full Exam - General 1994 Ears/Nose/Throat oral cavity/pharynx/larynx Overall: oropharyngeal mucosa clear 03/30/2017 None Full Exam - General 1994 Ears/Nose/Throat oral cavity/pharynx/larynx Overall: no masses 03/30/2017 None Full Exam - General 1994 Respiratory auscultation Overall: breath sounds clear bilaterally 03/30/2017 None Full Exam - General 1994 Respiratory respiratory effort/rhythm Overall: no retractions 03/30/2017 None Full Exam - General 1994 Respiratory respiratory effort/rhythm Overall: normal rate 03/30/2017 None Full Exam - General 1994 Cardiovascular auscultation of heart Overall: regular rate 03/30/2017 None Full Exam - General 1994 Cardiovascular auscultation of heart Overall: normal heart sounds 03/30/2017 None Full Exam - General 1994 Cardiovascular auscultation of heart Overall: no murmurs 03/30/2017 None Full Exam - General 1994 Abdomen abdominal exam Contour: rounded 03/30/2017 None Full Exam - General 1994 Psychiatric orientation/consciousness Overall: oriented to person, place and time 03/30/2017 None Full Exam - General 1994 Psychiatric mood and affect Overall: normal mood and affect 03/30/2017 None Full Exam - General 1994 Constitutional general appearance Overall: well developed 03/02/2017 None Full Exam - General 1994 Constitutional general appearance Overall: in no acute distress 03/02/2017 None Full Exam - General 1994 Constitutional general appearance Overall: well nourished 03/02/2017 None Full Exam - General 1994 Eyes pupils and irises Overall: pupils equal, round, reactive to light and accomodation 03/02/2017 None Full Exam - General 1994 Ears/Nose/Throat otoscopic exam Overall: external auditory canals clear 03/02/2017 None Full Exam - General 1994 Ears/Nose/Throat otoscopic exam Overall: tympanic membranes clear 03/02/2017 None Full Exam - General 1994 Ears/Nose/Throat oral cavity/pharynx/larynx Overall: oral mucosa clear 03/02/2017 None Full Exam - General 1994 Ears/Nose/Throat oral cavity/pharynx/larynx Overall: oropharyngeal mucosa clear 03/02/2017 None Full Exam - General 1994 Ears/Nose/Throat oral cavity/pharynx/larynx Overall: no masses 03/02/2017 None Full Exam - General 1994 Respiratory auscultation Overall: breath sounds clear bilaterally 03/02/2017 None Full Exam - General 1994 Respiratory respiratory effort/rhythm Overall: no retractions 03/02/2017 None Full Exam - General 1994 Respiratory respiratory effort/rhythm Overall: normal rate 03/02/2017 None Full Exam - General 1994 Cardiovascular auscultation of heart Overall: regular rate 03/02/2017 None Full Exam - General 1994 Cardiovascular auscultation of heart Overall: normal heart sounds 03/02/2017 None Full Exam - General 1994 Cardiovascular auscultation of heart Overall: no murmurs 03/02/2017 None Full Exam - General 1994 Abdomen abdominal exam Overall: no tenderness 03/02/2017 None Full Exam - General 1994 Abdomen abdominal exam Overall: normal bowel sounds 03/02/2017 None Full Exam - General 1994 Abdomen abdominal exam Contour: rounded 03/02/2017 None Full Exam - General 1994 Musculoskeletal digits and nails Overall: no clubbing 03/02/2017 None Full Exam - General 1994 Musculoskeletal digits and nails Overall: digits benign 03/02/2017 None Full Exam - General 1994 Musculoskeletal spine, ribs and pelvis Overall: sacroiliac joint benign 03/02/2017 None Full Exam - General 1994 Musculoskeletal spine, ribs and pelvis Posture: lordosis 03/02/2017 None Full Exam - General 1994 Musculoskeletal gait and station Overall: normal gait 03/02/2017 None Full Exam - General 1994 Musculoskeletal gait and station Overall: normal station 03/02/2017 None Full Exam - General 1994 Neurologic gait Overall: no ataxia, no unsteadiness 03/02/2017 None Full Exam - General 1994 Psychiatric orientation/consciousness Overall: oriented to person, place and time 03/02/2017 None Full Exam - General 1994 Psychiatric mood and affect Overall: normal mood and affect 03/02/2017 None Full Exam - General 1994 Constitutional general appearance Overall: well developed 01/31/2017 None Full Exam - General 1994 Constitutional general appearance Overall: in no acute distress 01/31/2017 None Full Exam - General 1994 Constitutional general appearance Overall: well nourished 01/31/2017 None Full Exam - General 1994 Eyes pupils and irises Overall: pupils equal, round, reactive to light and accomodation 01/31/2017 None Full Exam - General 1994 Ears/Nose/Throat otoscopic exam Overall: external auditory canals clear 01/31/2017 None Full Exam - General 1994 Ears/Nose/Throat otoscopic exam Overall: tympanic membranes clear 01/31/2017 None Full Exam - General 1994 Ears/Nose/Throat oral cavity/pharynx/larynx Overall: oral mucosa clear 01/31/2017 None Full Exam - General 1994 Ears/Nose/Throat oral cavity/pharynx/larynx Overall: oropharyngeal mucosa clear 01/31/2017 None Full Exam - General 1994 Ears/Nose/Throat oral cavity/pharynx/larynx Overall: no masses 01/31/2017 None Full Exam - General 1994 Respiratory auscultation Overall: breath sounds clear bilaterally 01/31/2017 None Full Exam - General 1994 Respiratory respiratory effort/rhythm Overall: no retractions 01/31/2017 None Full Exam - General 1994 Respiratory respiratory effort/rhythm Overall: normal rate 01/31/2017 None Full Exam - General 1994 Cardiovascular auscultation of heart Overall: regular rate 01/31/2017 None Full Exam - General 1994 Cardiovascular auscultation of heart Overall: normal heart sounds 01/31/2017 None Full Exam - General 1994 Cardiovascular auscultation of heart Overall: no murmurs 01/31/2017 None Full Exam - General 1994 Abdomen abdominal exam Overall: no tenderness 01/31/2017 None Full Exam - General 1994 Abdomen abdominal exam Overall: normal bowel sounds 01/31/2017 None Full Exam - General 1994 Abdomen abdominal exam Contour: rounded 01/31/2017 None Full Exam - General 1994 Musculoskeletal digits and nails Overall: no clubbing 01/31/2017 None Full Exam - General 1994 Musculoskeletal digits and nails Overall: digits benign 01/31/2017 None Full Exam - General 1994 Musculoskeletal spine, ribs and pelvis Overall: spine benign 01/31/2017 None Full Exam - General 1994 Musculoskeletal spine, ribs and pelvis Overall: sacroiliac joint benign 01/31/2017 None Full Exam - General 1994 Musculoskeletal spine, ribs and pelvis Overall: good posture 01/31/2017 None Full Exam - General 1994 Musculoskeletal gait and station Overall: normal gait 01/31/2017 None Full Exam - General 1994 Musculoskeletal gait and station Overall: normal station 01/31/2017 None Full Exam - General 1994 Neurologic gait Overall: no ataxia, no unsteadiness 01/31/2017 None Full Exam - General 1994 Psychiatric orientation/consciousness Overall: oriented to person, place and time 01/31/2017 None Full Exam - General 1994 Psychiatric mood and affect Overall: normal mood and affect 01/31/2017 None Full Exam - General 1994 Constitutional general appearance Overall: well developed 10/25/2016 None Full Exam - General 1994 Constitutional general appearance Overall: in no acute distress 10/25/2016 None Full Exam - General 1994 Constitutional general appearance Overall: well nourished 10/25/2016 None Full Exam - General 1994 Eyes pupils and irises Overall: pupils equal, round, reactive to light and accomodation 10/25/2016 None Full Exam - General 1994 Ears/Nose/Throat otoscopic exam Overall: external auditory canals clear 10/25/2016 None Full Exam - General 1994 Ears/Nose/Throat otoscopic exam Overall: tympanic membranes clear 10/25/2016 None Full Exam - General 1994 Ears/Nose/Throat oral cavity/pharynx/larynx Overall: oral mucosa clear 10/25/2016 None Full Exam - General 1994 Ears/Nose/Throat oral cavity/pharynx/larynx Overall: oropharyngeal mucosa clear 10/25/2016 None Full Exam - General 1994 Ears/Nose/Throat oral cavity/pharynx/larynx Overall: no masses 10/25/2016 None Full Exam - General 1994 Respiratory auscultation Overall: breath sounds clear bilaterally 10/25/2016 None Full Exam - General 1994 Respiratory respiratory effort/rhythm Overall: no retractions 10/25/2016 None Full Exam - General 1994 Respiratory respiratory effort/rhythm Overall: normal rate 10/25/2016 None Full Exam - General 1994 Cardiovascular auscultation of heart Overall: regular rate 10/25/2016 None Full Exam - General 1994 Cardiovascular auscultation of heart Overall: normal heart sounds 10/25/2016 None Full Exam - General 1994 Cardiovascular auscultation of heart Overall: no murmurs 10/25/2016 None Full Exam - General 1994 Abdomen abdominal exam Overall: no tenderness 10/25/2016 None Full Exam - General 1994 Abdomen abdominal exam Overall: normal bowel sounds 10/25/2016 None Full Exam - General 1994 Abdomen abdominal exam Contour: rounded 10/25/2016 None Full Exam - General 1994 Musculoskeletal digits and nails Overall: no clubbing 10/25/2016 None Full Exam - General 1994 Musculoskeletal digits and nails Overall: digits benign 10/25/2016 None Full Exam - General 1994 Musculoskeletal spine, ribs and pelvis Overall: sacroiliac joint benign 10/25/2016 None Full Exam - General 1994 Musculoskeletal spine, ribs and pelvis Posture: lordosis 10/25/2016 None Full Exam - General 1994 Musculoskeletal gait and station Overall: normal gait 10/25/2016 None Full Exam - General 1994 Musculoskeletal gait and station Overall: normal station 10/25/2016 None Full Exam - General 1994 Neurologic gait Overall: no ataxia, no unsteadiness 10/25/2016 None Full Exam - General 1994 Psychiatric orientation/consciousness Overall: oriented to person, place and time 10/25/2016 None Full Exam - General 1994 Psychiatric mood and affect Overall: normal mood and affect 10/25/2016 None Full Exam - General 1994 Constitutional general appearance Overall: well developed 07/27/2016 None Full Exam - General 1994 Constitutional general appearance Overall: in no acute distress 07/27/2016 None Full Exam - General 1994 Constitutional general appearance Overall: well nourished 07/27/2016 None Full Exam - General 1994 Eyes pupils and irises Overall: pupils equal, round, reactive to light and accomodation 07/27/2016 None Full Exam - General 1994 Ears/Nose/Throat otoscopic exam Overall: external auditory canals clear 07/27/2016 None Full Exam - General 1994 Ears/Nose/Throat otoscopic exam Overall: tympanic membranes clear 07/27/2016 None Full Exam - General 1994 Ears/Nose/Throat oral cavity/pharynx/larynx Overall: oral mucosa clear 07/27/2016 None Full Exam - General 1994 Ears/Nose/Throat oral cavity/pharynx/larynx Overall: oropharyngeal mucosa clear 07/27/2016 None Full Exam - General 1994 Ears/Nose/Throat oral cavity/pharynx/larynx Overall: no masses 07/27/2016 None Full Exam - General 1994 Respiratory auscultation Overall: breath sounds clear bilaterally 07/27/2016 None Full Exam - General 1994 Respiratory respiratory effort/rhythm Overall: no retractions 07/27/2016 None Full Exam - General 1994 Respiratory respiratory effort/rhythm Overall: normal rate 07/27/2016 None Full Exam - General 1994 Cardiovascular auscultation of heart Overall: regular rate 07/27/2016 None Full Exam - General 1994 Cardiovascular auscultation of heart Overall: normal heart sounds 07/27/2016 None Full Exam - General 1994 Cardiovascular auscultation of heart Overall: no murmurs 07/27/2016 None Full Exam - General 1994 Abdomen abdominal exam Overall: no tenderness 07/27/2016 None Full Exam - General 1994 Abdomen abdominal exam Overall: normal bowel sounds 07/27/2016 None Full Exam - General 1994 Abdomen abdominal exam Contour: rounded 07/27/2016 None Full Exam - General 1994 Musculoskeletal digits and nails Overall: no clubbing 07/27/2016 None Full Exam - General 1994 Musculoskeletal digits and nails Overall: digits benign 07/27/2016 None Full Exam - General 1994 Musculoskeletal spine, ribs and pelvis Overall: sacroiliac joint benign 07/27/2016 None Full Exam - General 1994 Musculoskeletal spine, ribs and pelvis Posture: lordosis 07/27/2016 None Full Exam - General 1994 Musculoskeletal gait and station Overall: normal gait 07/27/2016 None Full Exam - General 1994 Musculoskeletal gait and station Overall: normal station 07/27/2016 None Full Exam - General 1994 Neurologic gait Overall: no ataxia, no unsteadiness 07/27/2016 None Full Exam - General 1994 Psychiatric orientation/consciousness Overall: oriented to person, place and time 07/27/2016 None Full Exam - General 1994 Psychiatric mood and affect Overall: normal mood and affect 07/27/2016 None Full Exam - General 1994 Constitutional general appearance Overall: well developed 05/26/2016 None Full Exam - General 1994 Constitutional general appearance Overall: in no acute distress 05/26/2016 None Full Exam - General 1994 Constitutional general appearance Overall: well nourished 05/26/2016 None Full Exam - General 1994 Eyes pupils and irises Overall: pupils equal, round, reactive to light and accomodation 05/26/2016 None Full Exam - General 1994 Ears/Nose/Throat otoscopic exam Overall: external auditory canals clear 05/26/2016 None Full Exam - General 1994 Ears/Nose/Throat otoscopic exam Overall: tympanic membranes clear 05/26/2016 None Full Exam - General 1994 Ears/Nose/Throat oral cavity/pharynx/larynx Overall: oral mucosa clear 05/26/2016 None Full Exam - General 1994 Ears/Nose/Throat oral cavity/pharynx/larynx Overall: oropharyngeal mucosa clear 05/26/2016 None Full Exam - General 1994 Ears/Nose/Throat oral cavity/pharynx/larynx Overall: no masses 05/26/2016 None Full Exam - General 1994 Respiratory auscultation Overall: breath sounds clear bilaterally 05/26/2016 None Full Exam - General 1994 Respiratory respiratory effort/rhythm Overall: no retractions 05/26/2016 None Full Exam - General 1994 Respiratory respiratory effort/rhythm Overall: normal rate 05/26/2016 None Full Exam - General 1994 Cardiovascular auscultation of heart Overall: regular rate 05/26/2016 None Full Exam - General 1994 Cardiovascular auscultation of heart Overall: normal heart sounds 05/26/2016 None Full Exam - General 1994 Cardiovascular auscultation of heart Overall: no murmurs 05/26/2016 None Full Exam - General 1994 Abdomen abdominal exam Overall: no tenderness 05/26/2016 None Full Exam - General 1994 Abdomen abdominal exam Overall: normal bowel sounds 05/26/2016 None Full Exam - General 1994 Abdomen abdominal exam Contour: rounded 05/26/2016 None Full Exam - General 1994 Musculoskeletal digits and nails Overall: no clubbing 05/26/2016 None Full Exam - General 1994 Musculoskeletal digits and nails Overall: digits benign 05/26/2016 None Full Exam - General 1994 Musculoskeletal spine, ribs and pelvis Overall: sacroiliac joint benign 05/26/2016 None Full Exam - General 1994 Musculoskeletal spine, ribs and pelvis Posture: lordosis 05/26/2016 None Full Exam - General 1994 Musculoskeletal gait and station Overall: normal gait 05/26/2016 None Full Exam - General 1994 Musculoskeletal gait and station Overall: normal station 05/26/2016 None Full Exam - General 1994 Neurologic gait Overall: no ataxia, no unsteadiness 05/26/2016 None Full Exam - General 1994 Psychiatric orientation/consciousness Overall: oriented to person, place and time 05/26/2016 None Full Exam - General 1994 Psychiatric mood and affect Overall: normal mood and affect 05/26/2016 None Full Exam - General 1994 Constitutional general appearance Overall: well developed 05/12/2016 None Full Exam - General 1994 Constitutional general appearance Overall: in no acute distress 05/12/2016 None Full Exam - General 1994 Constitutional general appearance Overall: well nourished 05/12/2016 None Full Exam - General 1994 Eyes pupils and irises Overall: pupils equal, round, reactive to light and accomodation 05/12/2016 None Full Exam - General 1994 Ears/Nose/Throat otoscopic exam Overall: external auditory canals clear 05/12/2016 None Full Exam - General 1994 Ears/Nose/Throat otoscopic exam Overall: tympanic membranes clear 05/12/2016 None Full Exam - General 1994 Ears/Nose/Throat oral cavity/pharynx/larynx Overall: oral mucosa clear 05/12/2016 None Full Exam - General 1994 Ears/Nose/Throat oral cavity/pharynx/larynx Overall: oropharyngeal mucosa clear 05/12/2016 None Full Exam - General 1994 Ears/Nose/Throat oral cavity/pharynx/larynx Overall: no masses 05/12/2016 None Full Exam - General 1994 Respiratory auscultation Overall: breath sounds clear bilaterally 05/12/2016 None Full Exam - General 1994 Respiratory respiratory effort/rhythm Overall: no retractions 05/12/2016 None Full Exam - General 1994 Respiratory respiratory effort/rhythm Overall: normal rate 05/12/2016 None Full Exam - General 1994 Cardiovascular auscultation of heart Overall: regular rate 05/12/2016 None Full Exam - General 1994 Cardiovascular auscultation of heart Overall: normal heart sounds 05/12/2016 None Full Exam - General 1994 Cardiovascular auscultation of heart Overall: no murmurs 05/12/2016 None Full Exam - General 1994 Abdomen abdominal exam Overall: no tenderness 05/12/2016 None Full Exam - General 1994 Abdomen abdominal exam Overall: normal bowel sounds 05/12/2016 None Full Exam - General 1994 Abdomen abdominal exam Contour: rounded 05/12/2016 None Full Exam - General 1994 Musculoskeletal digits and nails Overall: no clubbing 05/12/2016 None Full Exam - General 1994 Musculoskeletal digits and nails Overall: digits benign 05/12/2016 None Full Exam - General 1994 Musculoskeletal spine, ribs and pelvis Overall: sacroiliac joint benign 05/12/2016 None Full Exam - General 1994 Musculoskeletal spine, ribs and pelvis Posture: lordosis 05/12/2016 None Full Exam - General 1994 Musculoskeletal gait and station Overall: normal gait 05/12/2016 None Full Exam - General 1994 Musculoskeletal gait and station Overall: normal station 05/12/2016 None Full Exam - General 1994 Neurologic gait Overall: no ataxia, no unsteadiness 05/12/2016 None Full Exam - General 1994 Psychiatric orientation/consciousness Overall: oriented to person, place and time 05/12/2016 None Full Exam - General 1994 Psychiatric mood and affect Overall: normal mood and affect 05/12/2016 None Full Exam - General 1994 Constitutional general appearance Overall: well developed 02/23/2016 None Full Exam - General 1994 Constitutional general appearance Overall: in no acute distress 02/23/2016 None Full Exam - General 1994 Constitutional general appearance Overall: well nourished 02/23/2016 None Full Exam - General 1994 Eyes pupils and irises Overall: pupils equal, round, reactive to light and accomodation 02/23/2016 None Full Exam - General 1994 Ears/Nose/Throat otoscopic exam Overall: external auditory canals clear 02/23/2016 None Full Exam - General 1994 Ears/Nose/Throat otoscopic exam Overall: tympanic membranes clear 02/23/2016 None Full Exam - General 1994 Ears/Nose/Throat oral cavity/pharynx/larynx Overall: oral mucosa clear 02/23/2016 None Full Exam - General 1994 Ears/Nose/Throat oral cavity/pharynx/larynx Overall: oropharyngeal mucosa clear 02/23/2016 None Full Exam - General 1994 Ears/Nose/Throat oral cavity/pharynx/larynx Overall: no masses 02/23/2016 None Full Exam - General 1994 Respiratory auscultation Overall: breath sounds clear bilaterally 02/23/2016 None Full Exam - General 1994 Respiratory respiratory effort/rhythm Overall: no retractions 02/23/2016 None Full Exam - General 1994 Respiratory respiratory effort/rhythm Overall: normal rate 02/23/2016 None Full Exam - General 1994 Cardiovascular auscultation of heart Overall: regular rate 02/23/2016 None Full Exam - General 1994 Cardiovascular auscultation of heart Overall: normal heart sounds 02/23/2016 None Full Exam - General 1994 Cardiovascular auscultation of heart Overall: no murmurs 02/23/2016 None Full Exam - General 1994 Abdomen abdominal exam Overall: no tenderness 02/23/2016 None Full Exam - General 1994 Abdomen abdominal exam Overall: normal bowel sounds 02/23/2016 None Full Exam - General 1994 Abdomen abdominal exam Contour: rounded 02/23/2016 None Full Exam - General 1994 Musculoskeletal digits and nails Overall: no clubbing 02/23/2016 None Full Exam - General 1994 Musculoskeletal digits and nails Overall: digits benign 02/23/2016 None Full Exam - General 1994 Musculoskeletal spine, ribs and pelvis Overall: sacroiliac joint benign 02/23/2016 None Full Exam - General 1994 Musculoskeletal gait and station Overall: normal gait 02/23/2016 None Full Exam - General 1994 Musculoskeletal gait and station Overall: normal station 02/23/2016 None Full Exam - General 1994 Neurologic gait Overall: no ataxia, no unsteadiness 02/23/2016 None Full Exam - General 1994 Psychiatric orientation/consciousness Overall: oriented to person, place and time 02/23/2016 None Full Exam - General 1994 Psychiatric mood and affect Overall: normal mood and affect 02/23/2016 None Full Exam - General 1994 Musculoskeletal spine, ribs and pelvis Posture: lordosis 02/23/2016 None Full Exam - General 1994 Constitutional general appearance Overall: well developed 12/10/2015 None Full Exam - General 1994 Constitutional general appearance Overall: in no acute distress 12/10/2015 None Full Exam - General 1994 Constitutional general appearance Overall: well nourished 12/10/2015 None Full Exam - General 1994 Eyes pupils and irises Overall: pupils equal, round, reactive to light and accomodation 12/10/2015 None Full Exam - General 1994 Ears/Nose/Throat otoscopic exam Overall: external auditory canals clear 12/10/2015 None Full Exam - General 1994 Ears/Nose/Throat otoscopic exam Overall: tympanic membranes clear 12/10/2015 None Full Exam - General 1994 Ears/Nose/Throat oral cavity/pharynx/larynx Overall: oral mucosa clear 12/10/2015 None Full Exam - General 1994 Ears/Nose/Throat oral cavity/pharynx/larynx Overall: oropharyngeal mucosa clear 12/10/2015 None Full Exam - General 1994 Ears/Nose/Throat oral cavity/pharynx/larynx Overall: no masses 12/10/2015 None Full Exam - General 1994 Respiratory auscultation Overall: breath sounds clear bilaterally 12/10/2015 None Full Exam - General 1994 Respiratory respiratory effort/rhythm Overall: no retractions 12/10/2015 None Full Exam - General 1994 Respiratory respiratory effort/rhythm Overall: normal rate 12/10/2015 None Full Exam - General 1994 Cardiovascular auscultation of heart Overall: regular rate 12/10/2015 None Full Exam - General 1994 Cardiovascular auscultation of heart Overall: normal heart sounds 12/10/2015 None Full Exam - General 1994 Cardiovascular auscultation of heart Overall: no murmurs 12/10/2015 None Full Exam - General 1994 Abdomen abdominal exam Overall: no tenderness 12/10/2015 None Full Exam - General 1994 Abdomen abdominal exam Overall: normal bowel sounds 12/10/2015 None Full Exam - General 1994 Abdomen abdominal exam Contour: rounded 12/10/2015 None Full Exam - General 1994 Musculoskeletal digits and nails Overall: no clubbing 12/10/2015 None Full Exam - General 1994 Musculoskeletal digits and nails Overall: digits benign 12/10/2015 None Full Exam - General 1994 Musculoskeletal spine, ribs and pelvis Overall: spine benign 12/10/2015 None Full Exam - General 1994 Musculoskeletal spine, ribs and pelvis Overall: sacroiliac joint benign 12/10/2015 None Full Exam - General 1994 Musculoskeletal spine, ribs and pelvis Overall: good posture 12/10/2015 None Full Exam - General 1994 Musculoskeletal gait and station Overall: normal gait 12/10/2015 None Full Exam - General 1994 Musculoskeletal gait and station Overall: normal station 12/10/2015 None Full Exam - General 1994 Neurologic gait Overall: no ataxia, no unsteadiness 12/10/2015 None Full Exam - General 1994 Psychiatric orientation/consciousness Overall: oriented to person, place and time 12/10/2015 None Full Exam - General 1994 Psychiatric mood and affect Overall: normal mood and affect 12/10/2015 None Full Exam - General 1994 Constitutional general appearance Overall: well developed 11/10/2015 None Full Exam - General 1994 Constitutional general appearance Overall: in no acute distress 11/10/2015 None Full Exam - General 1994 Constitutional general appearance Overall: well nourished 11/10/2015 None Full Exam - General 1994 Eyes pupils and irises Overall: pupils equal, round, reactive to light and accomodation 11/10/2015 None Full Exam - General 1994 Ears/Nose/Throat otoscopic exam Overall: external auditory canals clear 11/10/2015 None Full Exam - General 1994 Ears/Nose/Throat otoscopic exam Overall: tympanic membranes clear 11/10/2015 None Full Exam - General 1994 Ears/Nose/Throat oral cavity/pharynx/larynx Overall: oral mucosa clear 11/10/2015 None Full Exam - General 1994 Ears/Nose/Throat oral cavity/pharynx/larynx Overall: oropharyngeal mucosa clear 11/10/2015 None Full Exam - General 1994 Ears/Nose/Throat oral cavity/pharynx/larynx Overall: no masses 11/10/2015 None Full Exam - General 1994 Respiratory auscultation Overall: breath sounds clear bilaterally 11/10/2015 None Full Exam - General 1994 Respiratory respiratory effort/rhythm Overall: no retractions 11/10/2015 None Full Exam - General 1994 Respiratory respiratory effort/rhythm Overall: normal rate 11/10/2015 None Full Exam - General 1994 Cardiovascular auscultation of heart Overall: regular rate 11/10/2015 None Full Exam - General 1994 Cardiovascular auscultation of heart Overall: normal heart sounds 11/10/2015 None Full Exam - General 1994 Cardiovascular auscultation of heart Overall: no murmurs 11/10/2015 None Full Exam - General 1994 Abdomen abdominal exam Overall: no tenderness 11/10/2015 None Full Exam - General 1994 Abdomen abdominal exam Overall: normal bowel sounds 11/10/2015 None Full Exam - General 1994 Abdomen abdominal exam Contour: rounded 11/10/2015 None Full Exam - General 1994 Musculoskeletal digits and nails Overall: no clubbing 11/10/2015 None Full Exam - General 1994 Musculoskeletal digits and nails Overall: digits benign 11/10/2015 None Full Exam - General 1994 Musculoskeletal spine, ribs and pelvis Overall: spine benign 11/10/2015 None Full Exam - General 1994 Musculoskeletal spine, ribs and pelvis Overall: sacroiliac joint benign 11/10/2015 None Full Exam - General 1994 Musculoskeletal spine, ribs and pelvis Overall: good posture 11/10/2015 None Full Exam - General 1994 Musculoskeletal gait and station Overall: normal gait 11/10/2015 None Full Exam - General 1994 Musculoskeletal gait and station Overall: normal station 11/10/2015 None Full Exam - General 1994 Neurologic gait Overall: no ataxia, no unsteadiness 11/10/2015 None Full Exam - General 1994 Psychiatric orientation/consciousness Overall: oriented to person, place and time 11/10/2015 None Full Exam - General 1994 Psychiatric mood and affect Overall: normal mood and affect 11/10/2015 None Full Exam - General 1994 Constitutional general appearance Overall: well developed 08/07/2015 None Full Exam - General 1994 Constitutional general appearance Overall: in no acute distress 08/07/2015 None Full Exam - General 1994 Constitutional general appearance Overall: well nourished 08/07/2015 None Full Exam - General 1994 Eyes pupils and irises Overall: pupils equal, round, reactive to light and accomodation 08/07/2015 None Full Exam - General 1994 Ears/Nose/Throat otoscopic exam Overall: external auditory canals clear 08/07/2015 None Full Exam - General 1994 Ears/Nose/Throat otoscopic exam Overall: tympanic membranes clear 08/07/2015 None Full Exam - General 1994 Ears/Nose/Throat oral cavity/pharynx/larynx Overall: oral mucosa clear 08/07/2015 None Full Exam - General 1994 Ears/Nose/Throat oral cavity/pharynx/larynx Overall: oropharyngeal mucosa clear 08/07/2015 None Full Exam - General 1994 Ears/Nose/Throat oral cavity/pharynx/larynx Overall: no masses 08/07/2015 None Full Exam - General 1994 Respiratory auscultation Overall: breath sounds clear bilaterally 08/07/2015 None Full Exam - General 1994 Respiratory respiratory effort/rhythm Overall: no retractions 08/07/2015 None Full Exam - General 1994 Respiratory respiratory effort/rhythm Overall: normal rate 08/07/2015 None Full Exam - General 1994 Cardiovascular auscultation of heart Overall: regular rate 08/07/2015 None Full Exam - General 1994 Cardiovascular auscultation of heart Overall: normal heart sounds 08/07/2015 None Full Exam - General 1994 Cardiovascular auscultation of heart Overall: no murmurs 08/07/2015 None Full Exam - General 1994 Abdomen abdominal exam Overall: no tenderness 08/07/2015 None Full Exam - General 1994 Abdomen abdominal exam Overall: normal bowel sounds 08/07/2015 None Full Exam - General 1994 Abdomen abdominal exam Contour: rounded 08/07/2015 None Full Exam - General 1994 Musculoskeletal digits and nails Overall: no clubbing 08/07/2015 None Full Exam - General 1994 Musculoskeletal digits and nails Overall: digits benign 08/07/2015 None Full Exam - General 1994 Musculoskeletal spine, ribs and pelvis Overall: spine benign 08/07/2015 None Full Exam - General 1994 Musculoskeletal spine, ribs and pelvis Overall: sacroiliac joint benign 08/07/2015 None Full Exam - General 1994 Musculoskeletal spine, ribs and pelvis Overall: good posture 08/07/2015 None Full Exam - General 1994 Musculoskeletal gait and station Overall: normal gait 08/07/2015 None Full Exam - General 1994 Musculoskeletal gait and station Overall: normal station 08/07/2015 None Full Exam - General 1994 Neurologic gait Overall: no ataxia, no unsteadiness 08/07/2015 None Full Exam - General 1994 Psychiatric orientation/consciousness Overall: oriented to person, place and time 08/07/2015 None Full Exam - General 1994 Psychiatric mood and affect Overall: normal mood and affect 08/07/2015 None Full Exam - General 1994 Constitutional general appearance Overall: well developed 07/07/2015 None Full Exam - General 1994 Constitutional general appearance Overall: in no acute distress 07/07/2015 None Full Exam - General 1994 Constitutional general appearance Overall: well nourished 07/07/2015 None Full Exam - General 1994 Eyes pupils and irises Overall: pupils equal, round, reactive to light and accomodation 07/07/2015 None Full Exam - General 1994 Ears/Nose/Throat otoscopic exam Overall: external auditory canals clear 07/07/2015 None Full Exam - General 1994 Ears/Nose/Throat otoscopic exam Overall: tympanic membranes clear 07/07/2015 None Full Exam - General 1994 Ears/Nose/Throat oral cavity/pharynx/larynx Overall: oral mucosa clear 07/07/2015 None Full Exam - General 1994 Ears/Nose/Throat oral cavity/pharynx/larynx Overall: oropharyngeal mucosa clear 07/07/2015 None Full Exam - General 1994 Ears/Nose/Throat oral cavity/pharynx/larynx Overall: no masses 07/07/2015 None Full Exam - General 1994 Respiratory auscultation Overall: breath sounds clear bilaterally 07/07/2015 None Full Exam - General 1994 Respiratory respiratory effort/rhythm Overall: no retractions 07/07/2015 None Full Exam - General 1994 Respiratory respiratory effort/rhythm Overall: normal rate 07/07/2015 None Full Exam - General 1994 Cardiovascular auscultation of heart Overall: regular rate 07/07/2015 None Full Exam - General 1994 Cardiovascular auscultation of heart Overall: normal heart sounds 07/07/2015 None Full Exam - General 1994 Cardiovascular auscultation of heart Overall: no murmurs 07/07/2015 None Full Exam - General 1994 Abdomen abdominal exam Overall: no tenderness 07/07/2015 None Full Exam - General 1994 Abdomen abdominal exam Overall: normal bowel sounds 07/07/2015 None Full Exam - General 1994 Abdomen abdominal exam Contour: rounded 07/07/2015 None Full Exam - General 1994 Musculoskeletal digits and nails Overall: no clubbing 07/07/2015 None Full Exam - General 1994 Musculoskeletal digits and nails Overall: digits benign 07/07/2015 None Full Exam - General 1994 Musculoskeletal spine, ribs and pelvis Overall: spine benign 07/07/2015 None Full Exam - General 1994 Musculoskeletal spine, ribs and pelvis Overall: sacroiliac joint benign 07/07/2015 None Full Exam - General 1994 Musculoskeletal spine, ribs and pelvis Overall: good posture 07/07/2015 None Full Exam - General 1994 Musculoskeletal gait and station Overall: normal gait 07/07/2015 None Full Exam - General 1994 Musculoskeletal gait and station Overall: normal station 07/07/2015 None Full Exam - General 1994 Neurologic gait Overall: no ataxia, no unsteadiness 07/07/2015 None Full Exam - General 1994 Psychiatric orientation/consciousness Overall: oriented to person, place and time 07/07/2015 None Full Exam - General 1994 Psychiatric mood and affect Overall: normal mood and affect 07/07/2015 None Full Exam - General 1994 Constitutional general appearance Overall: well developed 04/02/2015 None Full Exam - General 1994 Constitutional general appearance Overall: in no acute distress 04/02/2015 None Full Exam - General 1994 Constitutional general appearance Overall: well nourished 04/02/2015 None Full Exam - General 1994 Constitutional general appearance Hygiene/Attention to Grooming: good hygiene 04/02/2015 None Full Exam - General 1994 Eyes pupils and irises Overall: pupils equal, round, reactive to light and accomodation 04/02/2015 None Full Exam - General 1994 Ears/Nose/Throat otoscopic exam Overall: external auditory canals clear 04/02/2015 None Full Exam - General 1994 Ears/Nose/Throat otoscopic exam Overall: tympanic membranes clear 04/02/2015 None Full Exam - General 1994 Ears/Nose/Throat oral cavity/pharynx/larynx Overall: oral mucosa clear 04/02/2015 None Full Exam - General 1994 Ears/Nose/Throat oral cavity/pharynx/larynx Overall: oropharyngeal mucosa clear 04/02/2015 None Full Exam - General 1994 Ears/Nose/Throat oral cavity/pharynx/larynx Overall: no masses 04/02/2015 None Full Exam - General 1994 Respiratory auscultation Overall: breath sounds clear bilaterally 04/02/2015 None Full Exam - General 1994 Respiratory respiratory effort/rhythm Overall: no retractions 04/02/2015 None Full Exam - General 1994 Respiratory respiratory effort/rhythm Overall: normal rate 04/02/2015 None Full Exam - General 1994 Cardiovascular auscultation of heart Overall: regular rate 04/02/2015 None Full Exam - General 1994 Cardiovascular auscultation of heart Overall: normal heart sounds 04/02/2015 None Full Exam - General 1994 Abdomen abdominal exam Overall: no tenderness 04/02/2015 None Full Exam - General 1994 Abdomen abdominal exam Overall: normal bowel sounds 04/02/2015 None Full Exam - General 1994 Abdomen abdominal exam Contour: rounded 04/02/2015 None Full Exam - General 1994 Neurologic gait Overall: no ataxia, no unsteadiness 04/02/2015 None Full Exam - General 1994 Psychiatric orientation/consciousness Overall: oriented to person, place and time 04/02/2015 None Full Exam - General 1994 Psychiatric mood and affect Overall: normal mood and affect 04/02/2015 None Full Exam - General 1994 Constitutional general appearance Overall: well developed 12/23/2014 None Full Exam - General 1994 Constitutional general appearance Overall: in no acute distress 12/23/2014 None Full Exam - General 1994 Constitutional general appearance Overall: well nourished 12/23/2014 None Full Exam - General 1994 Eyes pupils and irises Overall: pupils equal, round, reactive to light and accomodation 12/23/2014 None Full Exam - General 1994 Ears/Nose/Throat otoscopic exam Overall: external auditory canals clear 12/23/2014 None Full Exam - General 1994 Ears/Nose/Throat otoscopic exam Overall: tympanic membranes clear 12/23/2014 None Full Exam - General 1994 Ears/Nose/Throat oral cavity/pharynx/larynx Overall: oral mucosa clear 12/23/2014 None Full Exam - General 1994 Ears/Nose/Throat oral cavity/pharynx/larynx Overall: oropharyngeal mucosa clear 12/23/2014 None Full Exam - General 1994 Ears/Nose/Throat oral cavity/pharynx/larynx Overall: no masses 12/23/2014 None Full Exam - General 1994 Respiratory auscultation Overall: breath sounds clear bilaterally 12/23/2014 None Full Exam - General 1994 Respiratory respiratory effort/rhythm Overall: no retractions 12/23/2014 None Full Exam - General 1994 Respiratory respiratory effort/rhythm Overall: normal rate 12/23/2014 None Full Exam - General 1994 Cardiovascular auscultation of heart Overall: regular rate 12/23/2014 None Full Exam - General 1994 Cardiovascular auscultation of heart Overall: normal heart sounds 12/23/2014 None Full Exam - General 1994 Cardiovascular auscultation of heart Overall: no murmurs 12/23/2014 None Full Exam - General 1994 Abdomen abdominal exam Overall: no tenderness 12/23/2014 None Full Exam - General 1994 Abdomen abdominal exam Overall: normal bowel sounds 12/23/2014 None Full Exam - General 1994 Abdomen abdominal exam Contour: rounded 12/23/2014 None Full Exam - General 1994 Musculoskeletal digits and nails Overall: no clubbing 12/23/2014 None Full Exam - General 1994 Musculoskeletal digits and nails Overall: digits benign 12/23/2014 None Full Exam - General 1994 Musculoskeletal spine, ribs and pelvis Overall: spine benign 12/23/2014 None Full Exam - General 1994 Musculoskeletal spine, ribs and pelvis Overall: sacroiliac joint benign 12/23/2014 None Full Exam - General 1994 Musculoskeletal spine, ribs and pelvis Overall: good posture 12/23/2014 None Full Exam - General 1994 Musculoskeletal gait and station Overall: normal gait 12/23/2014 None Full Exam - General 1994 Musculoskeletal gait and station Overall: normal station 12/23/2014 None Full Exam - General 1994 Neurologic gait Overall: no ataxia, no unsteadiness 12/23/2014 None Full Exam - General 1994 Psychiatric orientation/consciousness Overall: oriented to person, place and time 12/23/2014 None Full Exam - General 1994 Psychiatric mood and affect Overall: normal mood and affect 12/23/2014 None Full Exam - General 1994 Constitutional general appearance Overall: well developed 10/22/2014 None Full Exam - General 1994 Constitutional general appearance Overall: in no acute distress 10/22/2014 None Full Exam - General 1994 Constitutional general appearance Overall: well nourished 10/22/2014 None Full Exam - General 1994 Eyes pupils and irises Overall: pupils equal, round, reactive to light and accomodation 10/22/2014 None Full Exam - General 1994 Ears/Nose/Throat otoscopic exam Overall: external auditory canals clear 10/22/2014 None Full Exam - General 1994 Ears/Nose/Throat otoscopic exam Overall: tympanic membranes clear 10/22/2014 None Full Exam - General 1994 Ears/Nose/Throat oral cavity/pharynx/larynx Overall: oral mucosa clear 10/22/2014 None Full Exam - General 1994 Ears/Nose/Throat oral cavity/pharynx/larynx Overall: oropharyngeal mucosa clear 10/22/2014 None Full Exam - General 1994 Ears/Nose/Throat oral cavity/pharynx/larynx Overall: no masses 10/22/2014 None Full Exam - General 1994 Respiratory auscultation Overall: breath sounds clear bilaterally 10/22/2014 None Full Exam - General 1994 Respiratory respiratory effort/rhythm Overall: no retractions 10/22/2014 None Full Exam - General 1994 Respiratory respiratory effort/rhythm Overall: normal rate 10/22/2014 None Full Exam - General 1994 Cardiovascular auscultation of heart Overall: regular rate 10/22/2014 None Full Exam - General 1994 Cardiovascular auscultation of heart Overall: normal heart sounds 10/22/2014 None Full Exam - General 1994 Cardiovascular auscultation of heart Overall: no murmurs 10/22/2014 None Full Exam - General 1994 Abdomen abdominal exam Overall: no tenderness 10/22/2014 None Full Exam - General 1994 Abdomen abdominal exam Overall: normal bowel sounds 10/22/2014 None Full Exam - General 1994 Abdomen abdominal exam Contour: rounded 10/22/2014 None Full Exam - General 1994 Musculoskeletal digits and nails Overall: no clubbing 10/22/2014 None Full Exam - General 1994 Musculoskeletal digits and nails Overall: digits benign 10/22/2014 None Full Exam - General 1994 Musculoskeletal spine, ribs and pelvis Overall: spine benign 10/22/2014 None Full Exam - General 1994 Musculoskeletal spine, ribs and pelvis Overall: sacroiliac joint benign 10/22/2014 None Full Exam - General 1994 Musculoskeletal spine, ribs and pelvis Overall: good posture 10/22/2014 None Full Exam - General 1994 Musculoskeletal gait and station Overall: normal gait 10/22/2014 None Full Exam - General 1994 Musculoskeletal gait and station Overall: normal station 10/22/2014 None Full Exam - General 1994 Neurologic gait Overall: no ataxia, no unsteadiness 10/22/2014 None Full Exam - General 1994 Psychiatric orientation/consciousness Overall: oriented to person, place and time 10/22/2014 None Full Exam - General 1994 Psychiatric mood and affect Overall: normal mood and affect 10/22/2014 None Full Exam - General 1994 Constitutional general appearance Overall: well developed 09/26/2014 None Full Exam - General 1994 Constitutional general appearance Overall: in no acute distress 09/26/2014 None Full Exam - General 1994 Constitutional general appearance Overall: well nourished 09/26/2014 None Full Exam - General 1994 Eyes pupils and irises Overall: pupils equal, round, reactive to light and accomodation 09/26/2014 None Full Exam - General 1994 Ears/Nose/Throat oral cavity/pharynx/larynx Overall: oral mucosa clear 09/26/2014 None Full Exam - General 1994 Ears/Nose/Throat oral cavity/pharynx/larynx Overall: no masses 09/26/2014 None Full Exam - General 1994 Respiratory respiratory effort/rhythm Overall: no retractions 09/26/2014 None Full Exam - General 1994 Respiratory respiratory effort/rhythm Overall: normal rate 09/26/2014 None Full Exam - General 1994 Cardiovascular auscultation of heart Overall: regular rate 09/26/2014 None Full Exam - General 1994 Cardiovascular auscultation of heart Overall: normal heart sounds 09/26/2014 None Full Exam - General 1994 Cardiovascular auscultation of heart Overall: no murmurs 09/26/2014 None Full Exam - General 1994 Musculoskeletal digits and nails Overall: no clubbing 09/26/2014 None Full Exam - General 1994 Musculoskeletal digits and nails Overall: digits benign 09/26/2014 None Full Exam - General 1994 Musculoskeletal spine, ribs and pelvis Overall: good posture 09/26/2014 None Full Exam - General 1994 Musculoskeletal gait and station Overall: normal gait 09/26/2014 None Full Exam - General 1994 Musculoskeletal gait and station Overall: normal station 09/26/2014 None Full Exam - General 1994 Psychiatric orientation/consciousness Overall: oriented to person, place and time 09/26/2014 None Full Exam - General 1994 Psychiatric mood and affect Overall: normal mood and affect 09/26/2014 None Full Exam - General 1994 Ears/Nose/Throat otoscopic exam Overall: tympanic membranes clear 09/26/2014 None Full Exam - General 1994 Ears/Nose/Throat otoscopic exam Overall: external auditory canals clear 09/26/2014 None Full Exam - General 1994 Respiratory auscultation Overall: breath sounds clear bilaterally 09/26/2014 None Full Exam - General 1994 Lymphatic neck nodes Overall: anterior cervical chain benign 09/26/2014 None Full Exam - General 1994 Lymphatic neck nodes Overall: posterior cervical chain benign 09/26/2014 None Full Exam - General 1994 Constitutional general appearance Overall: well developed 07/01/2014 None Full Exam - General 1994 Constitutional general appearance Overall: in no acute distress 07/01/2014 None Full Exam - General 1994 Constitutional general appearance Overall: well nourished 07/01/2014 None Full Exam - General 1994 Eyes pupils and irises Overall: pupils equal, round, reactive to light and accomodation 07/01/2014 None Full Exam - General 1994 Ears/Nose/Throat otoscopic exam Overall: external auditory canals clear 07/01/2014 None Full Exam - General 1994 Ears/Nose/Throat otoscopic exam Overall: tympanic membranes clear 07/01/2014 None Full Exam - General 1994 Ears/Nose/Throat oral cavity/pharynx/larynx Overall: oral mucosa clear 07/01/2014 None Full Exam - General 1994 Ears/Nose/Throat oral cavity/pharynx/larynx Overall: oropharyngeal mucosa clear 07/01/2014 None Full Exam - General 1994 Ears/Nose/Throat oral cavity/pharynx/larynx Overall: no masses 07/01/2014 None Full Exam - General 1994 Respiratory auscultation Overall: breath sounds clear bilaterally 07/01/2014 None Full Exam - General 1994 Respiratory respiratory effort/rhythm Overall: no retractions 07/01/2014 None Full Exam - General 1994 Respiratory respiratory effort/rhythm Overall: normal rate 07/01/2014 None Full Exam - General 1994 Cardiovascular auscultation of heart Overall: regular rate 07/01/2014 None Full Exam - General 1994 Cardiovascular auscultation of heart Overall: normal heart sounds 07/01/2014 None Full Exam - General 1994 Cardiovascular auscultation of heart Overall: no murmurs 07/01/2014 None Full Exam - General 1994 Abdomen abdominal exam Overall: no tenderness 07/01/2014 None Full Exam - General 1994 Abdomen abdominal exam Overall: normal bowel sounds 07/01/2014 None Full Exam - General 1994 Abdomen abdominal exam Contour: rounded 07/01/2014 None Full Exam - General 1994 Musculoskeletal digits and nails Overall: no clubbing 07/01/2014 None Full Exam - General 1994 Musculoskeletal digits and nails Overall: digits benign 07/01/2014 None Full Exam - General 1994 Musculoskeletal spine, ribs and pelvis Overall: spine benign 07/01/2014 None Full Exam - General 1994 Musculoskeletal spine, ribs and pelvis Overall: sacroiliac joint benign 07/01/2014 None Full Exam - General 1994 Musculoskeletal spine, ribs and pelvis Overall: good posture 07/01/2014 None Full Exam - General 1994 Musculoskeletal gait and station Overall: normal gait 07/01/2014 None Full Exam - General 1994 Musculoskeletal gait and station Overall: normal station 07/01/2014 None Full Exam - General 1994 Neurologic gait Overall: no ataxia, no unsteadiness 07/01/2014 None Full Exam - General 1994 Psychiatric orientation/consciousness Overall: oriented to person, place and time 07/01/2014 None Full Exam - General 1994 Psychiatric mood and affect Overall: normal mood and affect 07/01/2014 None Full Exam - General 1994 Constitutional general appearance Overall: well developed 06/09/2014 None Full Exam - General 1994 Constitutional general appearance Overall: in no acute distress 06/09/2014 None Full Exam - General 1994 Constitutional general appearance Overall: well nourished 06/09/2014 None Full Exam - General 1994 Eyes pupils and irises Overall: pupils equal, round, reactive to light and accomodation 06/09/2014 None Full Exam - General 1994 Ears/Nose/Throat otoscopic exam Overall: external auditory canals clear 06/09/2014 None Full Exam - General 1994 Ears/Nose/Throat otoscopic exam Overall: tympanic membranes clear 06/09/2014 None Full Exam - General 1994 Ears/Nose/Throat oral cavity/pharynx/larynx Overall: oral mucosa clear 06/09/2014 None Full Exam - General 1994 Ears/Nose/Throat oral cavity/pharynx/larynx Overall: oropharyngeal mucosa clear 06/09/2014 None Full Exam - General 1994 Ears/Nose/Throat oral cavity/pharynx/larynx Overall: no masses 06/09/2014 None Full Exam - General 1994 Respiratory auscultation Overall: breath sounds clear bilaterally 06/09/2014 None Full Exam - General 1994 Respiratory respiratory effort/rhythm Overall: no retractions 06/09/2014 None Full Exam - General 1994 Respiratory respiratory effort/rhythm Overall: normal rate 06/09/2014 None Full Exam - General 1994 Cardiovascular auscultation of heart Overall: regular rate 06/09/2014 None Full Exam - General 1994 Cardiovascular auscultation of heart Overall: normal heart sounds 06/09/2014 None Full Exam - General 1994 Cardiovascular auscultation of heart Overall: no murmurs 06/09/2014 None Full Exam - General 1994 Abdomen abdominal exam Overall: no tenderness 06/09/2014 None Full Exam - General 1994 Abdomen abdominal exam Overall: normal bowel sounds 06/09/2014 None Full Exam - General 1994 Abdomen abdominal exam Contour: rounded 06/09/2014 None Full Exam - General 1994 Musculoskeletal digits and nails Overall: no clubbing 06/09/2014 None Full Exam - General 1994 Musculoskeletal digits and nails Overall: digits benign 06/09/2014 None Full Exam - General 1994 Musculoskeletal spine, ribs and pelvis Overall: spine benign 06/09/2014 None Full Exam - General 1994 Musculoskeletal spine, ribs and pelvis Overall: sacroiliac joint benign 06/09/2014 None Full Exam - General 1994 Musculoskeletal spine, ribs and pelvis Overall: good posture 06/09/2014 None Full Exam - General 1994 Musculoskeletal gait and station Overall: normal gait 06/09/2014 None Full Exam - General 1994 Musculoskeletal gait and station Overall: normal station 06/09/2014 None Full Exam - General 1994 Neurologic gait Overall: no ataxia, no unsteadiness 06/09/2014 None Full Exam - General 1994 Psychiatric orientation/consciousness Overall: oriented to person, place and time 06/09/2014 None Full Exam - General 1994 Psychiatric mood and affect Overall: normal mood and affect 06/09/2014 None Full Exam - General 1994 Constitutional general appearance Overall: well developed 05/07/2014 None Full Exam - General 1994 Constitutional general appearance Overall: in no acute distress 05/07/2014 None Full Exam - General 1994 Constitutional general appearance Overall: well nourished 05/07/2014 None Full Exam - General 1994 Eyes pupils and irises Overall: pupils equal, round, reactive to light and accomodation 05/07/2014 None Full Exam - General 1994 Ears/Nose/Throat otoscopic exam Overall: external auditory canals clear 05/07/2014 None Full Exam - General 1994 Ears/Nose/Throat otoscopic exam Overall: tympanic membranes clear 05/07/2014 None Full Exam - General 1994 Ears/Nose/Throat oral cavity/pharynx/larynx Overall: oral mucosa clear 05/07/2014 None Full Exam - General 1994 Ears/Nose/Throat oral cavity/pharynx/larynx Overall: oropharyngeal mucosa clear 05/07/2014 None Full Exam - General 1994 Ears/Nose/Throat oral cavity/pharynx/larynx Overall: no masses 05/07/2014 None Full Exam - General 1994 Respiratory auscultation Overall: breath sounds clear bilaterally 05/07/2014 None Full Exam - General 1994 Respiratory respiratory effort/rhythm Overall: no retractions 05/07/2014 None Full Exam - General 1994 Respiratory respiratory effort/rhythm Overall: normal rate 05/07/2014 None Full Exam - General 1994 Cardiovascular auscultation of heart Overall: regular rate 05/07/2014 None Full Exam - General 1994 Cardiovascular auscultation of heart Overall: normal heart sounds 05/07/2014 None Full Exam - General 1994 Cardiovascular auscultation of heart Overall: no murmurs 05/07/2014 None Full Exam - General 1994 Abdomen abdominal exam Overall: no tenderness 05/07/2014 None Full Exam - General 1994 Abdomen abdominal exam Overall: normal bowel sounds 05/07/2014 None Full Exam - General 1994 Abdomen abdominal exam Contour: rounded 05/07/2014 None Full Exam - General 1994 Musculoskeletal digits and nails Overall: no clubbing 05/07/2014 None Full Exam - General 1994 Musculoskeletal digits and nails Overall: digits benign 05/07/2014 None Full Exam - General 1994 Musculoskeletal spine, ribs and pelvis Overall: spine benign 05/07/2014 None Full Exam - General 1994 Musculoskeletal spine, ribs and pelvis Overall: sacroiliac joint benign 05/07/2014 None Full Exam - General 1994 Musculoskeletal spine, ribs and pelvis Overall: good posture 05/07/2014 None Full Exam - General 1994 Musculoskeletal gait and station Overall: normal gait 05/07/2014 None Full Exam - General 1994 Musculoskeletal gait and station Overall: normal station 05/07/2014 None Full Exam - General 1994 Neurologic gait Overall: no ataxia, no unsteadiness 05/07/2014 None Full Exam - General 1994 Psychiatric orientation/consciousness Overall: oriented to person, place and time 05/07/2014 None Full Exam - General 1994 Psychiatric mood and affect Overall: normal mood and affect 05/07/2014 None Full Exam - General 1994 Constitutional general appearance Overall: well developed 04/21/2014 None Full Exam - General 1994 Constitutional general appearance Overall: well nourished 04/21/2014 None Full Exam - General 1994 Eyes pupils and irises Overall: pupils equal, round, reactive to light and accomodation 04/21/2014 None Full Exam - General 1994 Ears/Nose/Throat otoscopic exam Overall: external auditory canals clear 04/21/2014 None Full Exam - General 1994 Ears/Nose/Throat otoscopic exam Overall: tympanic membranes clear 04/21/2014 None Full Exam - General 1994 Ears/Nose/Throat oral cavity/pharynx/larynx Overall: oropharyngeal mucosa clear 04/21/2014 None Full Exam - General 1994 Ears/Nose/Throat oral cavity/pharynx/larynx Overall: no masses 04/21/2014 None Full Exam - General 1994 Respiratory auscultation Overall: breath sounds clear bilaterally 04/21/2014 None Full Exam - General 1994 Respiratory respiratory effort/rhythm Overall: no retractions 04/21/2014 None Full Exam - General 1994 Respiratory respiratory effort/rhythm Overall: normal rate 04/21/2014 None Full Exam - General 1994 Cardiovascular auscultation of heart Overall: regular rate 04/21/2014 None Full Exam - General 1994 Cardiovascular auscultation of heart Overall: normal heart sounds 04/21/2014 None Full Exam - General 1994 Cardiovascular auscultation of heart Overall: no murmurs 04/21/2014 None Full Exam - General 1994 Abdomen abdominal exam Overall: no tenderness 04/21/2014 None Full Exam - General 1994 Abdomen abdominal exam Overall: normal bowel sounds 04/21/2014 None Full Exam - General 1994 Abdomen abdominal exam Contour: rounded 04/21/2014 None Full Exam - General 1994 Musculoskeletal digits and nails Overall: no clubbing 04/21/2014 None Full Exam - General 1994 Musculoskeletal digits and nails Overall: digits benign 04/21/2014 None Full Exam - General 1994 Musculoskeletal spine, ribs and pelvis Overall: spine benign 04/21/2014 None Full Exam - General 1994 Musculoskeletal spine, ribs and pelvis Overall: sacroiliac joint benign 04/21/2014 None Full Exam - General 1994 Musculoskeletal spine, ribs and pelvis Overall: good posture 04/21/2014 None Full Exam - General 1994 Musculoskeletal gait and station Overall: normal gait 04/21/2014 None Full Exam - General 1994 Musculoskeletal gait and station Overall: normal station 04/21/2014 None Full Exam - General 1994 Neurologic gait Overall: no ataxia, no unsteadiness 04/21/2014 None Full Exam - General 1994 Psychiatric orientation/consciousness Overall: oriented to person, place and time 04/21/2014 None Full Exam - General 1994 Psychiatric mood and affect Overall: normal mood and affect 04/21/2014 None Full Exam - General 1994 Constitutional general appearance Hygiene/Attention to Grooming: good hygiene 04/21/2014 None Full Exam - General 1994 Constitutional general appearance Evidence of Distress: mild distress 04/21/2014 - pt unsteady with walking - Full Exam - General 1994 Ears/Nose/Throat oral cavity/pharynx/larynx Overall: oral mucosa clear 04/21/2014 but dry Full Exam - General 1994 Cardiovascular extremities Edema present: pitting 04/21/2014 None Full Exam - General 1994 Cardiovascular extremities Edema present: severity 1+ - 4+: 2+ 04/21/2014 None Full Exam - General 1994 Cardiovascular extremities Edema present: bilateral 04/21/2014 None Full Exam - General 1994 Integument inspection of skin Overall: few scattered moles, no gross abnormalities 04/21/2014 None Full Exam - General 1994 Constitutional general appearance Overall: well developed 02/14/2014 None Full Exam - General 1994 Constitutional general appearance Overall: in no acute distress 02/14/2014 None Full Exam - General 1994 Constitutional general appearance Overall: well nourished 02/14/2014 None Full Exam - General 1994 Eyes pupils and irises Overall: pupils equal, round, reactive to light and accomodation 02/14/2014 None Full Exam - General 1994 Ears/Nose/Throat otoscopic exam Overall: external auditory canals clear 02/14/2014 None Full Exam - General 1994 Ears/Nose/Throat otoscopic exam Overall: tympanic membranes clear 02/14/2014 None Full Exam - General 1994 Ears/Nose/Throat oral cavity/pharynx/larynx Overall: oral mucosa clear 02/14/2014 None Full Exam - General 1994 Ears/Nose/Throat oral cavity/pharynx/larynx Overall: oropharyngeal mucosa clear 02/14/2014 None Full Exam - General 1994 Ears/Nose/Throat oral cavity/pharynx/larynx Overall: no masses 02/14/2014 None Full Exam - General 1994 Respiratory auscultation Overall: breath sounds clear bilaterally 02/14/2014 None Full Exam - General 1994 Respiratory respiratory effort/rhythm Overall: no retractions 02/14/2014 None Full Exam - General 1994 Respiratory respiratory effort/rhythm Overall: normal rate 02/14/2014 None Full Exam - General 1994 Cardiovascular auscultation of heart Overall: regular rate 02/14/2014 None Full Exam - General 1994 Cardiovascular auscultation of heart Overall: normal heart sounds 02/14/2014 None Full Exam - General 1994 Cardiovascular auscultation of heart Overall: no murmurs 02/14/2014 None Full Exam - General 1994 Neurologic gait Overall: no ataxia, no unsteadiness 02/14/2014 None Full Exam - General 1994 Psychiatric orientation/consciousness Overall: oriented to person, place and time 02/14/2014 None Full Exam - General 1994 Psychiatric mood and affect Overall: normal mood and affect 02/14/2014 None Full Exam - General 1994 Integument inspection of skin Dermatitis: erythema 02/14/2014 anterior left lower leg/t ibia, healing bite jeff. Full Exam - Cardiology Respiratory auscultation Overall: breath sounds clear bilaterally 01/16/2014 None Full Exam - Cardiology Cardiovascular auscultation of heart Overall: regular rate 01/16/2014 None Full Exam - Cardiology Constitutional general appearance Overall: well nourished 01/16/2014 None Full Exam - Cardiology Constitutional general appearance Overall: well developed 01/16/2014 None Full Exam - Cardiology Constitutional general appearance Overall: in no acute distress 01/16/2014 None Full Exam - Cardiology Psychiatric orientation/consciousness Overall: oriented to person, place and time 01/16/2014 None Full Exam - Cardiology Psychiatric mood and affect Overall: normal mood and affect 01/16/2014 None Full Exam - Cardiology Musculoskeletal gait and station Overall: normal gait 01/16/2014 None Full Exam - Cardiology Musculoskeletal gait and station Overall: normal station 01/16/2014 - upper extremity with t enderness to palpation over the anterior head of biceps bilaterally Full Exam - General 1994 Constitutional general appearance Overall: well developed 11/14/2013 None Full Exam - General 1994 Constitutional general appearance Overall: in no acute distress 11/14/2013 None Full Exam - General 1994 Constitutional general appearance Overall: well nourished 11/14/2013 None Full Exam - General 1994 Eyes pupils and irises Overall: pupils equal, round, reactive to light and accomodation 11/14/2013 None Full Exam - General 1994 Ears/Nose/Throat otoscopic exam Overall: external auditory canals clear 11/14/2013 None Full Exam - General 1994 Ears/Nose/Throat otoscopic exam Overall: tympanic membranes clear 11/14/2013 None Full Exam - General 1994 Ears/Nose/Throat oral cavity/pharynx/larynx Overall: oral mucosa clear 11/14/2013 None Full Exam - General 1994 Ears/Nose/Throat oral cavity/pharynx/larynx Overall: oropharyngeal mucosa clear 11/14/2013 None Full Exam - General 1994 Ears/Nose/Throat oral cavity/pharynx/larynx Overall: no masses 11/14/2013 None Full Exam - General 1994 Respiratory auscultation Overall: breath sounds clear bilaterally 11/14/2013 None Full Exam - General 1994 Respiratory respiratory effort/rhythm Overall: no retractions 11/14/2013 None Full Exam - General 1994 Respiratory respiratory effort/rhythm Overall: normal rate 11/14/2013 None Full Exam - General 1994 Cardiovascular auscultation of heart Overall: regular rate 11/14/2013 None Full Exam - General 1994 Cardiovascular auscultation of heart Overall: normal heart sounds 11/14/2013 None Full Exam - General 1994 Cardiovascular auscultation of heart Overall: no murmurs 11/14/2013 None Full Exam - General 1994 Abdomen abdominal exam Overall: no tenderness 11/14/2013 None Full Exam - General 1994 Abdomen abdominal exam Overall: normal bowel sounds 11/14/2013 None Full Exam - General 1994 Abdomen abdominal exam Contour: rounded 11/14/2013 None Full Exam - General 1994 Musculoskeletal digits and nails Overall: no clubbing 11/14/2013 None Full Exam - General 1994 Musculoskeletal digits and nails Overall: digits benign 11/14/2013 None Full Exam - General 1994 Musculoskeletal spine, ribs and pelvis Overall: spine benign 11/14/2013 None Full Exam - General 1994 Musculoskeletal spine, ribs and pelvis Overall: sacroiliac joint benign 11/14/2013 None Full Exam - General 1994 Musculoskeletal spine, ribs and pelvis Overall: good posture 11/14/2013 None Full Exam - General 1994 Musculoskeletal gait and station Overall: normal gait 11/14/2013 None Full Exam - General 1994 Musculoskeletal gait and station Overall: normal station 11/14/2013 None Full Exam - General 1994 Neurologic gait Overall: no ataxia, no unsteadiness 11/14/2013 None Full Exam - General 1994 Psychiatric orientation/consciousness Overall: oriented to person, place and time 11/14/2013 None Full Exam - General 1994 Psychiatric mood and affect Overall: normal mood and affect 11/14/2013 None Full Exam - General 1994 Constitutional general appearance Overall: well developed 10/24/2013 None Full Exam - General 1994 Constitutional general appearance Overall: in no acute distress 10/24/2013 None Full Exam - General 1994 Constitutional general appearance Overall: well nourished 10/24/2013 None Full Exam - General 1994 Eyes pupils and irises Overall: pupils equal, round, reactive to light and accomodation 10/24/2013 None Full Exam - General 1994 Ears/Nose/Throat otoscopic exam Overall: external auditory canals clear 10/24/2013 None Full Exam - General 1994 Ears/Nose/Throat otoscopic exam Overall: tympanic membranes clear 10/24/2013 None Full Exam - General 1994 Ears/Nose/Throat oral cavity/pharynx/larynx Overall: oral mucosa clear 10/24/2013 None Full Exam - General 1994 Ears/Nose/Throat oral cavity/pharynx/larynx Overall: oropharyngeal mucosa clear 10/24/2013 None Full Exam - General 1994 Ears/Nose/Throat oral cavity/pharynx/larynx Overall: no masses 10/24/2013 None Full Exam - General 1994 Respiratory auscultation Overall: breath sounds clear bilaterally 10/24/2013 None Full Exam - General 1994 Respiratory respiratory effort/rhythm Overall: no retractions 10/24/2013 None Full Exam - General 1994 Respiratory respiratory effort/rhythm Overall: normal rate 10/24/2013 None Full Exam - General 1994 Cardiovascular auscultation of heart Overall: regular rate 10/24/2013 None Full Exam - General 1994 Cardiovascular auscultation of heart Overall: normal heart sounds 10/24/2013 None Full Exam - General 1994 Cardiovascular auscultation of heart Overall: no murmurs 10/24/2013 None Full Exam - General 1994 Abdomen abdominal exam Overall: no tenderness 10/24/2013 None Full Exam - General 1994 Abdomen abdominal exam Overall: normal bowel sounds 10/24/2013 None Full Exam - General 1994 Abdomen abdominal exam Contour: rounded 10/24/2013 None Full Exam - General 1994 Musculoskeletal digits and nails Overall: no clubbing 10/24/2013 None Full Exam - General 1994 Musculoskeletal digits and nails Overall: digits benign 10/24/2013 None Full Exam - General 1994 Musculoskeletal spine, ribs and pelvis Overall: spine benign 10/24/2013 None Full Exam - General 1994 Musculoskeletal spine, ribs and pelvis Overall: sacroiliac joint benign 10/24/2013 None Full Exam - General 1994 Musculoskeletal spine, ribs and pelvis Overall: good posture 10/24/2013 None Full Exam - General 1994 Musculoskeletal gait and station Overall: normal gait 10/24/2013 None Full Exam - General 1994 Musculoskeletal gait and station Overall: normal station 10/24/2013 None Full Exam - General 1994 Neurologic gait Overall: no ataxia, no unsteadiness 10/24/2013 None Full Exam - General 1994 Psychiatric orientation/consciousness Overall: oriented to person, place and time 10/24/2013 None Full Exam - General 1994 Psychiatric mood and affect Overall: normal mood and affect 10/24/2013 None Full Exam - General 1994 Constitutional general appearance Overall: well developed 06/24/2013 None Full Exam - General 1994 Cardiovascular auscultation of heart Overall: no murmurs 06/24/2013 None Full Exam - General 1994 Abdomen abdominal exam Overall: no tenderness 06/24/2013 None Full Exam - General 1994 Abdomen abdominal exam Overall: normal bowel sounds 06/24/2013 None Full Exam - General 1994 Abdomen abdominal exam Contour: rounded 06/24/2013 None Full Exam - General 1994 Musculoskeletal digits and nails Overall: no clubbing 06/24/2013 None Full Exam - General 1994 Musculoskeletal digits and nails Overall: digits benign 06/24/2013 None Full Exam - General 1995 Musculoskeletal spine, ribs and pelvis Overall: spine benign 06/24/2013 None Full Exam - General 1994 Musculoskeletal spine, ribs and pelvis Overall: sacroiliac joint benign 06/24/2013 None Full Exam - General 1994 Musculoskeletal spine, ribs and pelvis Overall: good posture 06/24/2013 None Full Exam - General 1995 Musculoskeletal gait and station Overall: normal gait 06/24/2013 None Full Exam - General 1994 Musculoskeletal gait and station Overall: normal station 06/24/2013 None Full Exam - General 1994 Neurologic gait Overall: no ataxia, no unsteadiness 06/24/2013 None Full Exam - General 1994 Psychiatric orientation/consciousness Overall: oriented to person, place and time 06/24/2013 None Full Exam - General 1994 Psychiatric mood and affect Overall: normal mood and affect 06/24/2013 None Full Exam - General 1994 Constitutional general appearance Overall: in no acute distress 06/24/2013 None Full Exam - General 1994 Constitutional general appearance Overall: well nourished 06/24/2013 None Full Exam - General 1994 Eyes pupils and irises Overall: pupils equal, round, reactive to light and accomodation 06/24/2013 None Full Exam - General 1994 Ears/Nose/Throat otoscopic exam Overall: external auditory canals clear 06/24/2013 None Full Exam - General 1994 Ears/Nose/Throat otoscopic exam Overall: tympanic membranes clear 06/24/2013 None Full Exam - General 1994 Ears/Nose/Throat oral cavity/pharynx/larynx Overall: oral mucosa clear 06/24/2013 None Full Exam - General 1994 Ears/Nose/Throat oral cavity/pharynx/larynx Overall: oropharyngeal mucosa clear 06/24/2013 None Full Exam - General 1994 Ears/Nose/Throat oral cavity/pharynx/larynx Overall: no masses 06/24/2013 None Full Exam - General 1994 Respiratory auscultation Overall: breath sounds clear bilaterally 06/24/2013 None Full Exam - General 1994 Respiratory respiratory effort/rhythm Overall: no retractions 06/24/2013 None Full Exam - General 1994 Respiratory respiratory effort/rhythm Overall: normal rate 06/24/2013 None Full Exam - General 1994 Cardiovascular auscultation of heart Overall: regular rate 06/24/2013 None Full Exam - General 1994 Cardiovascular auscultation of heart Overall: normal heart sounds 06/24/2013 None Full Exam - General 1994 Constitutional general appearance Overall: well developed 06/05/2013 None Full Exam - General 1994 Constitutional general appearance Overall: in no acute distress 06/05/2013 None Full Exam - General 1994 Constitutional general appearance Overall: well nourished 06/05/2013 None Full Exam - General 1994 Eyes pupils and irises Overall: pupils equal, round, reactive to light and accomodation 06/05/2013 None Full Exam - General 1994 Ears/Nose/Throat otoscopic exam Overall: external auditory canals clear 06/05/2013 None Full Exam - General 1994 Ears/Nose/Throat otoscopic exam Overall: tympanic membranes clear 06/05/2013 None Full Exam - General 1995 Ears/Nose/Throat oral cavity/pharynx/larynx Overall: oral mucosa clear 06/05/2013 None Full Exam - General 1995 Ears/Nose/Throat oral cavity/pharynx/larynx Overall: oropharyngeal mucosa clear 06/05/2013 None Full Exam - General 1994 Ears/Nose/Throat oral cavity/pharynx/larynx Overall: no masses 06/05/2013 None Full Exam - General 1994 Respiratory auscultation Overall: breath sounds clear bilaterally 06/05/2013 None Full Exam - General 1994 Respiratory respiratory effort/rhythm Overall: no retractions 06/05/2013 None Full Exam - General 1994 Respiratory respiratory effort/rhythm Overall: normal rate 06/05/2013 None Full Exam - General 1994 Cardiovascular auscultation of heart Overall: regular rate 06/05/2013 None Full Exam - General 1994 Cardiovascular auscultation of heart Overall: normal heart sounds 06/05/2013 None Full Exam - General 1994 Cardiovascular auscultation of heart Overall: no murmurs 06/05/2013 None Full Exam - General 1994 Abdomen abdominal exam Overall: no tenderness 06/05/2013 None Full Exam - General 1994 Abdomen abdominal exam Overall: normal bowel sounds 06/05/2013 None Full Exam - General 1994 Abdomen abdominal exam Contour: rounded 06/05/2013 None Full Exam - General 1994 Musculoskeletal digits and nails Overall: no clubbing 06/05/2013 None Full Exam - General 1994 Musculoskeletal digits and nails Overall: digits benign 06/05/2013 None Full Exam - General 1994 Musculoskeletal spine, ribs and pelvis Overall: spine benign 06/05/2013 None Full Exam - General 1994 Musculoskeletal spine, ribs and pelvis Overall: sacroiliac joint benign 06/05/2013 None Full Exam - General 1995 Musculoskeletal spine, ribs and pelvis Overall: good posture 06/05/2013 None Full Exam - General 1995 Musculoskeletal gait and station Overall: normal gait 06/05/2013 None Full Exam - General 1995 Musculoskeletal gait and station Overall: normal station 06/05/2013 None Full Exam - General 1994 Neurologic gait Overall: no ataxia, no unsteadiness 06/05/2013 None Full Exam - General 1994 Psychiatric orientation/consciousness Overall: oriented to person, place and time 06/05/2013 None Full Exam - General 1994 Psychiatric mood and affect Overall: normal mood and affect 06/05/2013 None Full Exam - General 1995 Ears/Nose/Throat oral cavity/pharynx/larynx Overall: oropharyngeal mucosa clear 04/01/2013 None Full Exam - General 1995 Ears/Nose/Throat oral cavity/pharynx/larynx Overall: no masses 04/01/2013 None Full Exam - General 1994 Respiratory auscultation Overall: breath sounds clear bilaterally 04/01/2013 None Full Exam - General 1994 Respiratory respiratory effort/rhythm Overall: no retractions 04/01/2013 None Full Exam - General 1994 Respiratory respiratory effort/rhythm Overall: normal rate 04/01/2013 None Full Exam - General 1994 Cardiovascular auscultation of heart Overall: regular rate 04/01/2013 None Full Exam - General 1994 Cardiovascular auscultation of heart Overall: normal heart sounds 04/01/2013 None Full Exam - General 1994 Cardiovascular auscultation of heart Overall: no murmurs 04/01/2013 None Full Exam - General 1994 Abdomen abdominal exam Overall: no tenderness 04/01/2013 None Full Exam - General 1994 Abdomen abdominal exam Overall: normal bowel sounds 04/01/2013 None Full Exam - General 1994 Abdomen abdominal exam Contour: rounded 04/01/2013 None Full Exam - General 1994 Musculoskeletal digits and nails Overall: no clubbing 04/01/2013 None Full Exam - General 1994 Musculoskeletal digits and nails Overall: digits benign 04/01/2013 None Full Exam - General 1994 Musculoskeletal spine, ribs and pelvis Overall: spine benign 04/01/2013 None Full Exam - General 1994 Constitutional general appearance Overall: well developed 04/01/2013 None Full Exam - General 1994 Constitutional general appearance Overall: in no acute distress 04/01/2013 None Full Exam - General 1994 Constitutional general appearance Overall: well nourished 04/01/2013 None Full Exam - General 1994 Eyes pupils and irises Overall: pupils equal, round, reactive to light and accomodation 04/01/2013 None Full Exam - General 1995 Ears/Nose/Throat otoscopic exam Overall: external auditory canals clear 04/01/2013 None Full Exam - General 1995 Ears/Nose/Throat otoscopic exam Overall: tympanic membranes clear 04/01/2013 None Full Exam - General 1995 Ears/Nose/Throat oral cavity/pharynx/larynx Overall: oral mucosa clear 04/01/2013 None Full Exam - General 1994 Musculoskeletal spine, ribs and pelvis Overall: sacroiliac joint benign 04/01/2013 None Full Exam - General 1995 Musculoskeletal spine, ribs and pelvis Overall: good posture 04/01/2013 None Full Exam - General 1994 Musculoskeletal gait and station Overall: normal gait 04/01/2013 None Full Exam - General 1994 Musculoskeletal gait and station Overall: normal station 04/01/2013 None Full Exam - General 1994 Neurologic gait Overall: no ataxia, no unsteadiness 04/01/2013 None Full Exam - General 1994 Psychiatric orientation/consciousness Overall: oriented to person, place and time 04/01/2013 None Full Exam - General 1994 Psychiatric mood and affect Overall: normal mood and affect 04/01/2013 None Full Exam - General 1994 Constitutional general appearance Overall: well developed 01/29/2013 None Full Exam - General 1994 Constitutional general appearance Overall: in no acute distress 01/29/2013 None Full Exam - General 1994 Constitutional general appearance Overall: well nourished 01/29/2013 None Full Exam - General 1994 Eyes pupils and irises Overall: pupils equal, round, reactive to light and accomodation 01/29/2013 None Full Exam - General 1994 Ears/Nose/Throat otoscopic exam Overall: external auditory canals clear 01/29/2013 None Full Exam - General 1994 Ears/Nose/Throat otoscopic exam Overall: tympanic membranes clear 01/29/2013 None Full Exam - General 1994 Ears/Nose/Throat oral cavity/pharynx/larynx Overall: oral mucosa clear 01/29/2013 None Full Exam - General 1995 Ears/Nose/Throat oral cavity/pharynx/larynx Overall: oropharyngeal mucosa clear 01/29/2013 None Full Exam - General 1995 Ears/Nose/Throat oral cavity/pharynx/larynx Overall: no masses 01/29/2013 None Full Exam - General 1994 Respiratory auscultation Overall: breath sounds clear bilaterally 01/29/2013 None Full Exam - General 1995 Respiratory respiratory effort/rhythm Overall: no retractions 01/29/2013 None Full Exam - General 1995 Respiratory respiratory effort/rhythm Overall: normal rate 01/29/2013 None Full Exam - General 1995 Cardiovascular auscultation of heart Overall: regular rate 01/29/2013 None Full Exam - General 1995 Cardiovascular auscultation of heart Overall: normal heart sounds 01/29/2013 None Full Exam - General 1994 Cardiovascular auscultation of heart Overall: no murmurs 01/29/2013 None Full Exam - General 1995 Abdomen abdominal exam Overall: no tenderness 01/29/2013 None Full Exam - General 1995 Abdomen abdominal exam Overall: normal bowel sounds 01/29/2013 None Full Exam - General 1995 Abdomen abdominal exam Contour: rounded 01/29/2013 None Full Exam - General 1995 Musculoskeletal digits and nails Overall: no clubbing 01/29/2013 None Full Exam - General 1995 Musculoskeletal digits and nails Overall: digits benign 01/29/2013 None Full Exam - General 1994 Musculoskeletal spine, ribs and pelvis Overall: spine benign 01/29/2013 None Full Exam - General 1994 Musculoskeletal spine, ribs and pelvis Overall: sacroiliac joint benign 01/29/2013 None Full Exam - General 1995 Musculoskeletal spine, ribs and pelvis Overall: good posture 01/29/2013 None Full Exam - General 1994 Musculoskeletal gait and station Overall: normal gait 01/29/2013 None Full Exam - General 1994 Musculoskeletal gait and station Overall: normal station 01/29/2013 None Full Exam - General 1994 Neurologic gait Overall: no ataxia, no unsteadiness 01/29/2013 None Full Exam - General 1994 Psychiatric orientation/consciousness Overall: oriented to person, place and time 01/29/2013 None Full Exam - General 1994 Psychiatric mood and affect Overall: normal mood and affect 01/29/2013 None Full Exam - General 1994 Constitutional general appearance Overall: well developed 12/25/2012 None Full Exam - General 1994 Constitutional general appearance Overall: in no acute distress 12/25/2012 None Full Exam - General 1994 Constitutional general appearance Overall: well nourished 12/25/2012 None Full Exam - General 1994 Eyes pupils and irises Overall: pupils equal, round, reactive to light and accomodation 12/25/2012 None Full Exam - General 1994 Ears/Nose/Throat otoscopic exam Overall: external auditory canals clear 12/25/2012 None Full Exam - General 1995 Ears/Nose/Throat otoscopic exam Overall: tympanic membranes clear 12/25/2012 None Full Exam - General 1995 Ears/Nose/Throat oral cavity/pharynx/larynx Overall: oral mucosa clear 12/25/2012 None Full Exam - General 1995 Ears/Nose/Throat oral cavity/pharynx/larynx Overall: oropharyngeal mucosa clear 12/25/2012 None Full Exam - General 1994 Ears/Nose/Throat oral cavity/pharynx/larynx Overall: no masses 12/25/2012 None Full Exam - General 1994 Respiratory auscultation Overall: breath sounds clear bilaterally 12/25/2012 None Full Exam - General 1994 Respiratory respiratory effort/rhythm Overall: no retractions 12/25/2012 None Full Exam - General 1994 Respiratory respiratory effort/rhythm Overall: normal rate 12/25/2012 None Full Exam - General 1994 Cardiovascular auscultation of heart Overall: regular rate 12/25/2012 None Full Exam - General 1994 Cardiovascular auscultation of heart Overall: normal heart sounds 12/25/2012 None Full Exam - General 1994 Cardiovascular auscultation of heart Overall: no murmurs 12/25/2012 None Full Exam - General 1994 Abdomen abdominal exam Overall: no tenderness 12/25/2012 None Full Exam - General 1994 Abdomen abdominal exam Overall: normal bowel sounds 12/25/2012 None Full Exam - General 1994 Abdomen abdominal exam Contour: rounded 12/25/2012 None Full Exam - General 1994 Musculoskeletal digits and nails Overall: no clubbing 12/25/2012 None Full Exam - General 1994 Musculoskeletal digits and nails Overall: digits benign 12/25/2012 None Full Exam - General 1994 Musculoskeletal spine, ribs and pelvis Overall: spine benign 12/25/2012 None Full Exam - General 1994 Musculoskeletal spine, ribs and pelvis Overall: sacroiliac joint benign 12/25/2012 None Full Exam - General 1994 Musculoskeletal spine, ribs and pelvis Overall: good posture 12/25/2012 None Full Exam - General 1994 Musculoskeletal gait and station Overall: normal gait 12/25/2012 None Full Exam - General 1994 Musculoskeletal gait and station Overall: normal station 12/25/2012 None Full Exam - General 1994 Neurologic gait Overall: no ataxia, no unsteadiness 12/25/2012 None Full Exam - General 1994 Psychiatric orientation/consciousness Overall: oriented to person, place and time 12/25/2012 None Full Exam - General 1994 Psychiatric mood and affect Overall: normal mood and affect 12/25/2012 None Full Exam - General 1994 Constitutional general appearance Overall: well developed 10/01/2012 None Full Exam - General 1994 Constitutional general appearance Overall: in no acute distress 10/01/2012 None Full Exam - General 1994 Constitutional general appearance Overall: well nourished 10/01/2012 None Full Exam - General 1994 Eyes pupils and irises Overall: pupils equal, round, reactive to light and accomodation 10/01/2012 None Full Exam - General 1994 Ears/Nose/Throat otoscopic exam Overall: external auditory canals clear 10/01/2012 None Full Exam - General 1994 Ears/Nose/Throat otoscopic exam Overall: tympanic membranes clear 10/01/2012 None Full Exam - General 1994 Ears/Nose/Throat oral cavity/pharynx/larynx Overall: oral mucosa clear 10/01/2012 None Full Exam - General 1994 Ears/Nose/Throat oral cavity/pharynx/larynx Overall: oropharyngeal mucosa clear 10/01/2012 None Full Exam - General 1994 Ears/Nose/Throat oral cavity/pharynx/larynx Overall: no masses 10/01/2012 None Full Exam - General 1994 Respiratory auscultation Overall: breath sounds clear bilaterally 10/01/2012 None Full Exam - General 1994 Respiratory respiratory effort/rhythm Overall: no retractions 10/01/2012 None Full Exam - General 1994 Respiratory respiratory effort/rhythm Overall: normal rate 10/01/2012 None Full Exam - General 1994 Cardiovascular auscultation of heart Overall: regular rate 10/01/2012 None Full Exam - General 1994 Cardiovascular auscultation of heart Overall: normal heart sounds 10/01/2012 None Full Exam - General 1994 Cardiovascular auscultation of heart Overall: no murmurs 10/01/2012 None Full Exam - General 1994 Abdomen abdominal exam Overall: no tenderness 10/01/2012 None Full Exam - General 1994 Abdomen abdominal exam Overall: normal bowel sounds 10/01/2012 None Full Exam - General 1994 Abdomen abdominal exam Contour: rounded 10/01/2012 None Full Exam - General 1994 Musculoskeletal digits and nails Overall: no clubbing 10/01/2012 None Full Exam - General 1994 Musculoskeletal digits and nails Overall: digits benign 10/01/2012 None Full Exam - General 1994 Musculoskeletal spine, ribs and pelvis Overall: spine benign 10/01/2012 None Full Exam - General 1995 Musculoskeletal spine, ribs and pelvis Overall: sacroiliac joint benign 10/01/2012 None Full Exam - General 1995 Musculoskeletal spine, ribs and pelvis Overall: good posture 10/01/2012 None Full Exam - General 1995 Musculoskeletal gait and station Overall: normal gait 10/01/2012 None Full Exam - General 1995 Musculoskeletal gait and station Overall: normal station 10/01/2012 None Full Exam - General 1995 Neurologic gait Overall: no ataxia, no unsteadiness 10/01/2012 None Full Exam - General 1995 Psychiatric orientation/consciousness Overall: oriented to person, place and time 10/01/2012 None Full Exam - General 1995 Psychiatric mood and affect Overall: normal mood and affect 10/01/2012 None Full Exam - General 1995 Respiratory auscultation Lower lung field: diminished 06/29/2012 None Full Exam - General 1995 Respiratory respiratory effort/rhythm Overall: no retractions 06/29/2012 None Full Exam - General 1995 Respiratory respiratory effort/rhythm Overall: normal rate 06/29/2012 None Full Exam - General 1995 Cardiovascular auscultation of heart Overall: regular rate 06/29/2012 None Full Exam - General 1995 Cardiovascular auscultation of heart Overall: normal heart sounds 06/29/2012 None Full Exam - General 1995 Cardiovascular auscultation of heart Overall: no murmurs 06/29/2012 None Full Exam - General 1995 Musculoskeletal digits and nails Overall: no clubbing 06/29/2012 None Full Exam - General 1995 Musculoskeletal digits and nails Overall: digits benign 06/29/2012 None Full Exam - General 1995 Musculoskeletal spine, ribs and pelvis Overall: good posture 06/29/2012 None Full Exam - General 1994 Musculoskeletal gait and station Overall: normal gait 06/29/2012 None Full Exam - General 1995 Musculoskeletal gait and station Overall: normal station 06/29/2012 None Full Exam - General 1994 Psychiatric orientation/consciousness Overall: oriented to person, place and time 06/29/2012 None Full Exam - General 1994 Psychiatric mood and affect Overall: normal mood and affect 06/29/2012 None Full Exam - General 1994 Respiratory auscultation Upper lung field: a normal exam 06/29/2012 None Full Exam - General 1994 Constitutional general appearance Overall: well developed 06/29/2012 None Full Exam - General 1994 Constitutional general appearance Overall: in no acute distress 06/29/2012 None Full Exam - General 1994 Constitutional general appearance Overall: well nourished 06/29/2012 None Full Exam - General 1994 Eyes pupils and irises Overall: pupils equal, round, reactive to light and accomodation 06/29/2012 None Full Exam - General 1995 Ears/Nose/Throat otoscopic exam Overall: external auditory canals clear 06/29/2012 None Full Exam - General 1995 Ears/Nose/Throat otoscopic exam Tympanic membrane: erythematous 06/29/2012 None Full Exam - General 1995 Ears/Nose/Throat otoscopic exam Tympanic membrane: bulging 06/29/2012 None Full Exam - General 1995 Ears/Nose/Throat oral cavity/pharynx/larynx Overall: oral mucosa clear 06/29/2012 None Full Exam - General 1995 Ears/Nose/Throat oral cavity/pharynx/larynx Overall: no masses 06/29/2012 None Full Exam - General 1995 Ears/Nose/Throat oral cavity/pharynx/larynx Posterior Pharynx: purulent post nasal drainage 06/29/2012 None Full Exam - General 1994 Constitutional general appearance Overall: well developed 05/28/2012 None Full Exam - General 1994 Constitutional general appearance Overall: in no acute distress 05/28/2012 None Full Exam - General 1994 Constitutional general appearance Overall: well nourished 05/28/2012 None Full Exam - General 1994 Eyes pupils and irises Overall: pupils equal, round, reactive to light and accomodation 05/28/2012 None Full Exam - General 1994 Ears/Nose/Throat otoscopic exam Overall: external auditory canals clear 05/28/2012 None Full Exam - General 1994 Ears/Nose/Throat oral cavity/pharynx/larynx Overall: oral mucosa clear 05/28/2012 None Full Exam - General 1994 Ears/Nose/Throat oral cavity/pharynx/larynx Overall: no masses 05/28/2012 None Full Exam - General 1994 Respiratory respiratory effort/rhythm Overall: no retractions 05/28/2012 None Full Exam - General 1994 Respiratory respiratory effort/rhythm Overall: normal rate 05/28/2012 None Full Exam - General 1994 Cardiovascular auscultation of heart Overall: regular rate 05/28/2012 None Full Exam - General 1994 Cardiovascular auscultation of heart Overall: normal heart sounds 05/28/2012 None Full Exam - General 1994 Cardiovascular auscultation of heart Overall: no murmurs 05/28/2012 None Full Exam - General 1994 Musculoskeletal digits and nails Overall: no clubbing 05/28/2012 None Full Exam - General 1994 Musculoskeletal digits and nails Overall: digits benign 05/28/2012 None Full Exam - General 1994 Musculoskeletal spine, ribs and pelvis Overall: good posture 05/28/2012 None Full Exam - General 1994 Musculoskeletal gait and station Overall: normal gait 05/28/2012 None Full Exam - General 1994 Musculoskeletal gait and station Overall: normal station 05/28/2012 None Full Exam - General 1994 Psychiatric orientation/consciousness Overall: oriented to person, place and time 05/28/2012 None Full Exam - General 1994 Psychiatric mood and affect Overall: normal mood and affect 05/28/2012 None Full Exam - General 1994 Ears/Nose/Throat otoscopic exam Tympanic membrane: erythematous 05/28/2012 None Full Exam - General 1994 Ears/Nose/Throat otoscopic exam Tympanic membrane: bulging 05/28/2012 None Full Exam - General 1994 Ears/Nose/Throat oral cavity/pharynx/larynx Posterior Pharynx: purulent post nasal drainage 05/28/2012 None Full Exam - General 1994 Respiratory auscultation Upper lung field: bronchial 05/28/2012 None Full Exam - General 1994 Respiratory auscultation Upper lung field: rhonchi 05/28/2012 None Full Exam - General 1994 Respiratory auscultation Lower lung field: diminished 05/28/2012 None Full Exam - General 1994 Constitutional general appearance Overall: well nourished 04/02/2012 None Full Exam - General 1994 Constitutional general appearance Overall: well developed 04/02/2012 None Full Exam - General 1994 Constitutional general appearance Overall: in no acute distress 04/02/2012 None Full Exam - General 1994 Eyes pupils and irises Overall: pupils equal, round, reactive to light and accomodation 04/02/2012 None Full Exam - General 1994 Respiratory auscultation Overall: breath sounds clear bilaterally 04/02/2012 None Full Exam - General 1994 Respiratory respiratory effort/rhythm Overall: no retractions 04/02/2012 None Full Exam - General 1994 Respiratory respiratory effort/rhythm Overall: normal rate 04/02/2012 None Full Exam - General 1994 Cardiovascular auscultation of heart Overall: regular rate 04/02/2012 None Full Exam - General 1994 Cardiovascular auscultation of heart Overall: normal heart sounds 04/02/2012 None Full Exam - General 1994 Cardiovascular auscultation of heart Overall: no murmurs 04/02/2012 None Full Exam - General 1994 Abdomen abdominal exam Overall: no tenderness 04/02/2012 None Full Exam - General 1995 Abdomen abdominal exam Overall: normal bowel sounds 04/02/2012 None Full Exam - General 1994 Abdomen abdominal exam Contour: rounded 04/02/2012 None Full Exam - General 1994 Neurologic gait Overall: no ataxia, no unsteadiness 04/02/2012 None Full Exam - General 1994 Psychiatric orientation/consciousness Overall: oriented to person, place and time 04/02/2012 None Full Exam - General 1994 Psychiatric mood and affect Overall: normal mood and affect 04/02/2012 None Full Exam - General 1995 Ears/Nose/Throat otoscopic exam Overall: tympanic membranes clear 04/02/2012 None Full Exam - General 1995 Ears/Nose/Throat otoscopic exam Overall: external auditory canals clear 04/02/2012 None Full Exam - General 1995 Ears/Nose/Throat oral cavity/pharynx/larynx Overall: oropharyngeal mucosa clear 04/02/2012 None Full Exam - General 1994 Ears/Nose/Throat oral cavity/pharynx/larynx Overall: no masses 04/02/2012 None Full Exam - General 1995 Ears/Nose/Throat oral cavity/pharynx/larynx Overall: oral mucosa clear 04/02/2012 None Full Exam - General 1994 Musculoskeletal digits and nails Overall: digits benign 04/02/2012 None Full Exam - General 1994 Musculoskeletal digits and nails Overall: no clubbing 04/02/2012 None Full Exam - General 1994 Musculoskeletal gait and station Overall: normal station 04/02/2012 None Full Exam - General 1994 Musculoskeletal gait and station Overall: normal gait 04/02/2012 None Full Exam - General 1994 Musculoskeletal spine, ribs and pelvis Overall: good posture 04/02/2012 None Full Exam - General 1994 Musculoskeletal spine, ribs and pelvis Overall: sacroiliac joint benign 04/02/2012 None Full Exam - General 1994 Musculoskeletal spine, ribs and pelvis Overall: spine benign 04/02/2012 None Full Exam - ENT Neurologic orientation Overall: oriented to person, place a nd time 01/24/2012 None Full Exam - ENT Lymphatic palpation of lymph nodes Overall: anterior cervical chain benign 01/24/2012 None Full Exam - ENT Lymphatic palpation of lymph nodes Overall: posterior cervical chain benign 01/24/2012 None Full Exam - ENT Cardiovascular auscultation of heart Overall: regular rate 01/24/2012 None Full Exam - ENT Cardiovascular auscultation of heart Overall: normal heart sounds 01/24/2012 None Full Exam - ENT Respiratory auscultation Overall: breath sounds clear bilater ally 01/24/2012 None Full Exam - ENT Face and Head palpation Overall: no sinus tenderness 01/24/2012 None Full Exam - ENT Ears/Nose/Throat otoscopic exam Overall: external auditory canals normal 01/24/2012 None Full Exam - ENT Ears/Nose/Throat otoscopic exam Left tympanic membrane: air-fluid le ingrid 01/24/2012 None Full Exam - ENT Ears/Nose/Throat otoscopic exam Right tympanic membrane: air-fluid level 01/24/2012 None Full Exam - ENT Ears/Nose/Throat oropharynx Overall: oral mucosa clear 01/24/2012 None Full Exam - ENT Constitutional general appearance Overall: well nourished 01/24/2012 None Full Exam - ENT Constitutional general appearance Overall: well developed 01/24/2012 None Full Exam - ENT Constitutional general appearance Overall: in no acute distress 01/24/2012 None Full Exam - ENT Ears/Nose/Throat nasal mucosa, septum, turbinates Drainage: purulent 01/24/2012 None Full Exam - ENT Ears/Nose/Throat nasal mucosa, septum, turbinates Left nasal cavity: erythema 01/24/2012 None Full Exam - ENT Ears/Nose/Throat nasal mucosa, septum, turbinates Right nasal cavity: erythema 01/24/2012 None Full Exam - Cardiology Constitutional general appearance Overall: well nourished 10/03/2011 None Full Exam - Cardiology Constitutional general appearance Overall: well developed 10/03/2011 None Full Exam - Cardiology Constitutional general appearance Overall: in no acute distress 10/03/2011 None Full Exam - Cardiology Eyes conjunctiva/eyelids Overall: conjunctiva clear 10/03/2011 None Full Exam - Cardiology Chest/Breast breast/chest inspection Overall: normal chest shape 10/03/2011 None Full Exam - Cardiology Respiratory respiratory effort/rhythm Overall: no retractions 10/03/2011 None Full Exam - Cardiology Respiratory respiratory effort/rhythm Overall: normal rate 10/03/2011 None Full Exam - Cardiology Respiratory auscultation Overall: breath sounds clear bilaterally 10/03/2011 None Full Exam - Cardiology Cardiovascular auscultation of heart Overall: regular rate 10/03/2011 None Full Exam - Cardiology Cardiovascular auscultation of heart Overall: normal heart sounds 10/03/2011 None Full Exam - Cardiology Cardiovascular extremities Overall: without clubbing, cyanosis, or edema 10/03/2011 None Full Exam - Cardiology Abdomen abdominal exam Overall: no tenderness 10/03/2011 None Full Exam - Cardiology Abdomen abdominal exam Overall: normal bowel sounds 10/03/2011 None Full Exam - Cardiology Extremities digits and nails Overall: no clubbing 10/03/2011 None Full Exam - Cardiology Extremities digits and nails Overall: digits benign 10/03/2011 None Full Exam - Cardiology Psychiatric orientation/consciousness Overall: oriented to person, place and time 10/03/2011 None Full Exam - General 1994 Psychiatric mood and affect Overall: normal mood and affect 05/30/2011 None Full Exam - General 1994 Psychiatric orientation/consciousness Overall: oriented to person, place and time 05/30/2011 None Full Exam - General 1994 Neurologic gait Overall: no ataxia, no unsteadiness 05/30/2011 None Full Exam - General 1994 Abdomen abdominal exam Overall: no tenderness 05/30/2011 None Full Exam - General 1994 Abdomen abdominal exam Overall: normal bowel sounds 05/30/2011 None Full Exam - General 1994 Abdomen abdominal exam Contour: rounded 05/30/2011 None Full Exam - General 1994 Cardiovascular auscultation of heart Overall: regular rate 05/30/2011 None Full Exam - General 1994 Cardiovascular auscultation of heart Overall: normal heart sounds 05/30/2011 None Full Exam - General 1994 Cardiovascular auscultation of heart Overall: no murmurs 05/30/2011 None Full Exam - General 1994 Respiratory auscultation Overall: breath sounds clear bilaterally 05/30/2011 None Full Exam - General 1994 Respiratory respiratory effort/rhythm Overall: normal rate 05/30/2011 None Full Exam - General 1994 Respiratory respiratory effort/rhythm Overall: no retractions 05/30/2011 None Full Exam - General 1994 Constitutional general appearance Overall: well nourished 05/30/2011 None Full Exam - General 1994 Constitutional general appearance Overall: well developed 05/30/2011 None Full Exam - General 1994 Constitutional general appearance Overall: in no acute distress 05/30/2011 None Full Exam - General 1994 Eyes pupils and irises Overall: pupils equal, round, reactive to light and accomodation 05/30/2011 None Exam Name System Name It em Name Status Result Effective Dates Notes Full Exam - General 1994 Constitutional general appearance Overall: well developed 07/21/2017 None Full Exam - General 1994 Constitutional general appearance Overall: in no acute distress 07/21/2017 None Full Exam - General 1994 Constitutional general appearance Overall: well nourished 07/21/2017 None Full Exam - General 1994 Eyes pupils and irises Overall: pupils equal, round, reactive to light and accomodation 07/21/2017 None Full Exam - General 1994 Ears/Nose/Throat otoscopic exam Overall: external auditory canals clear 07/21/2017 None Full Exam - General 1994 Ears/Nose/Throat otoscopic exam Overall: tympanic membranes clear 07/21/2017 None Full Exam - General 1994 Ears/Nose/Throat oral cavity/pharynx/larynx Overall: oral mucosa clear 07/21/2017 None Full Exam - General 1994 Ears/Nose/Throat oral cavity/pharynx/larynx Overall: oropharyngeal mucosa clear 07/21/2017 None Full Exam - General 1994 Ears/Nose/Throat oral cavity/pharynx/larynx Overall: no masses 07/21/2017 None Full Exam - General 1994 Respiratory auscultation Overall: breath sounds clear bilaterally 07/21/2017 None Full Exam - General 1994 Respiratory respiratory effort/rhythm Overall: no retractions 07/21/2017 None Full Exam - General 1994 Respiratory respiratory effort/rhythm Overall: normal rate 07/21/2017 None Full Exam - General 1994 Cardiovascular auscultation of heart Overall: regular rate 07/21/2017 None Full Exam - General 1994 Cardiovascular auscultation of heart Overall: normal heart sounds 07/21/2017 None Full Exam - General 1994 Cardiovascular auscultation of heart Overall: no murmurs 07/21/2017 None Full Exam - General 1994 Abdomen abdominal exam Overall: no tenderness 07/21/2017 None Full Exam - General 1994 Abdomen abdominal exam Overall: normal bowel sounds 07/21/2017 None Full Exam - General 1994 Abdomen abdominal exam Contour: rounded 07/21/2017 None Full Exam - General 1994 Musculoskeletal digits and nails Overall: no clubbing 07/21/2017 None Full Exam - General 1994 Musculoskeletal digits and nails Overall: digits benign 07/21/2017 None Full Exam - General 1994 Musculoskeletal spine, ribs and pelvis Overall: spine benign 07/21/2017 None Full Exam - General 1994 Musculoskeletal spine, ribs and pelvis Overall: sacroiliac joint benign 07/21/2017 None Full Exam - General 1994 Musculoskeletal spine, ribs and pelvis Overall: good posture 07/21/2017 None Full Exam - General 1994 Musculoskeletal gait and station Overall: normal gait 07/21/2017 None Full Exam - General 1994 Musculoskeletal gait and station Overall: normal station 07/21/2017 None Full Exam - General 1994 Neurologic gait Overall: no ataxia, no unsteadiness 07/21/2017 None Full Exam - General 1994 Psychiatric orientation/consciousness Overall: oriented to person, place and time 07/21/2017 None Full Exam - General 1994 Psychiatric mood and affect Overall: normal mood and affect 07/21/2017 None Full Exam - General 1994 Constitutional general appearance Overall: well developed 05/04/2017 None Full Exam - General 1994 Constitutional general appearance Overall: in no acute distress 05/04/2017 None Full Exam - General 1994 Constitutional general appearance Overall: well nourished 05/04/2017 None Full Exam - General 1994 Eyes pupils and irises Overall: pupils equal, round, reactive to light and accomodation 05/04/2017 None Full Exam - General 1994 Ears/Nose/Throat otoscopic exam Overall: external auditory canals clear 05/04/2017 None Full Exam - General 1994 Ears/Nose/Throat otoscopic exam Overall: tympanic membranes clear 05/04/2017 None Full Exam - General 1994 Ears/Nose/Throat oral cavity/pharynx/larynx Overall: oral mucosa clear 05/04/2017 None Full Exam - General 1994 Ears/Nose/Throat oral cavity/pharynx/larynx Overall: oropharyngeal mucosa clear 05/04/2017 None Full Exam - General 1994 Ears/Nose/Throat oral cavity/pharynx/larynx Overall: no masses 05/04/2017 None Full Exam - General 1994 Respiratory auscultation Overall: breath sounds clear bilaterally 05/04/2017 None Full Exam - General 1994 Respiratory respiratory effort/rhythm Overall: no retractions 05/04/2017 None Full Exam - General 1994 Respiratory respiratory effort/rhythm Overall: normal rate 05/04/2017 None Full Exam - General 1994 Cardiovascular auscultation of heart Overall: regular rate 05/04/2017 None Full Exam - General 1994 Cardiovascular auscultation of heart Overall: normal heart sounds 05/04/2017 None Full Exam - General 1994 Cardiovascular auscultation of heart Overall: no murmurs 05/04/2017 None Full Exam - General 1994 Abdomen abdominal exam Overall: no tenderness 05/04/2017 None Full Exam - General 1994 Abdomen abdominal exam Overall: normal bowel sounds 05/04/2017 None Full Exam - General 1994 Abdomen abdominal exam Contour: rounded 05/04/2017 None Full Exam - General 1994 Musculoskeletal digits and nails Overall: no clubbing 05/04/2017 None Full Exam - General 1994 Musculoskeletal digits and nails Overall: digits benign 05/04/2017 None Full Exam - General 1994 Musculoskeletal spine, ribs and pelvis Overall: spine benign 05/04/2017 None Full Exam - General 1994 Musculoskeletal spine, ribs and pelvis Overall: sacroiliac joint benign 05/04/2017 None Full Exam - General 1994 Musculoskeletal spine, ribs and pelvis Overall: good posture 05/04/2017 None Full Exam - General 1994 Musculoskeletal gait and station Overall: normal gait 05/04/2017 None Full Exam - General 1994 Musculoskeletal gait and station Overall: normal station 05/04/2017 None Full Exam - General 1994 Neurologic gait Overall: no ataxia, no unsteadiness 05/04/2017 None Full Exam - General 1994 Psychiatric orientation/consciousness Overall: oriented to person, place and time 05/04/2017 None Full Exam - General 1994 Psychiatric mood and affect Overall: normal mood and affect 05/04/2017 None Full Exam - General 1994 Constitutional general appearance Overall: well developed 03/30/2017 None Full Exam - General 1994 Constitutional general appearance Overall: in no acute distress 03/30/2017 None Full Exam - General 1994 Constitutional general appearance Overall: well nourished 03/30/2017 None Full Exam - General 1994 Eyes pupils and irises Overall: pupils equal, round, reactive to light and accomodation 03/30/2017 None Full Exam - General 1994 Ears/Nose/Throat oral cavity/pharynx/larynx Overall: oral mucosa clear 03/30/2017 None Full Exam - General 1994 Ears/Nose/Throat oral cavity/pharynx/larynx Overall: oropharyngeal mucosa clear 03/30/2017 None Full Exam - General 1994 Ears/Nose/Throat oral cavity/pharynx/larynx Overall: no masses 03/30/2017 None Full Exam - General 1994 Respiratory auscultation Overall: breath sounds clear bilaterally 03/30/2017 None Full Exam - General 1994 Respiratory respiratory effort/rhythm Overall: no retractions 03/30/2017 None Full Exam - General 1994 Respiratory respiratory effort/rhythm Overall: normal rate 03/30/2017 None Full Exam - General 1994 Cardiovascular auscultation of heart Overall: regular rate 03/30/2017 None Full Exam - General 1994 Cardiovascular auscultation of heart Overall: normal heart sounds 03/30/2017 None Full Exam - General 1994 Cardiovascular auscultation of heart Overall: no murmurs 03/30/2017 None Full Exam - General 1994 Abdomen abdominal exam Contour: rounded 03/30/2017 None Full Exam - General 1994 Psychiatric orientation/consciousness Overall: oriented to person, place and time 03/30/2017 None Full Exam - General 1994 Psychiatric mood and affect Overall: normal mood and affect 03/30/2017 None Full Exam - General 1994 Constitutional general appearance Overall: well developed 03/02/2017 None Full Exam - General 1994 Constitutional general appearance Overall: in no acute distress 03/02/2017 None Full Exam - General 1994 Constitutional general appearance Overall: well nourished 03/02/2017 None Full Exam - General 1994 Eyes pupils and irises Overall: pupils equal, round, reactive to light and accomodation 03/02/2017 None Full Exam - General 1994 Ears/Nose/Throat otoscopic exam Overall: external auditory canals clear 03/02/2017 None Full Exam - General 1994 Ears/Nose/Throat otoscopic exam Overall: tympanic membranes clear 03/02/2017 None Full Exam - General 1994 Ears/Nose/Throat oral cavity/pharynx/larynx Overall: oral mucosa clear 03/02/2017 None Full Exam - General 1994 Ears/Nose/Throat oral cavity/pharynx/larynx Overall: oropharyngeal mucosa clear 03/02/2017 None Full Exam - General 1994 Ears/Nose/Throat oral cavity/pharynx/larynx Overall: no masses 03/02/2017 None Full Exam - General 1994 Respiratory auscultation Overall: breath sounds clear bilaterally 03/02/2017 None Full Exam - General 1994 Respiratory respiratory effort/rhythm Overall: no retractions 03/02/2017 None Full Exam - General 1994 Respiratory respiratory effort/rhythm Overall: normal rate 03/02/2017 None Full Exam - General 1994 Cardiovascular auscultation of heart Overall: regular rate 03/02/2017 None Full Exam - General 1994 Cardiovascular auscultation of heart Overall: normal heart sounds 03/02/2017 None Full Exam - General 1994 Cardiovascular auscultation of heart Overall: no murmurs 03/02/2017 None Full Exam - General 1994 Abdomen abdominal exam Overall: no tenderness 03/02/2017 None Full Exam - General 1994 Abdomen abdominal exam Overall: normal bowel sounds 03/02/2017 None Full Exam - General 1994 Abdomen abdominal exam Contour: rounded 03/02/2017 None Full Exam - General 1994 Musculoskeletal digits and nails Overall: no clubbing 03/02/2017 None Full Exam - General 1994 Musculoskeletal digits and nails Overall: digits benign 03/02/2017 None Full Exam - General 1994 Musculoskeletal spine, ribs and pelvis Overall: sacroiliac joint benign 03/02/2017 None Full Exam - General 1994 Musculoskeletal spine, ribs and pelvis Posture: lordosis 03/02/2017 None Full Exam - General 1994 Musculoskeletal gait and station Overall: normal gait 03/02/2017 None Full Exam - General 1994 Musculoskeletal gait and station Overall: normal station 03/02/2017 None Full Exam - General 1994 Neurologic gait Overall: no ataxia, no unsteadiness 03/02/2017 None Full Exam - General 1994 Psychiatric orientation/consciousness Overall: oriented to person, place and time 03/02/2017 None Full Exam - General 1994 Psychiatric mood and affect Overall: normal mood and affect 03/02/2017 None Full Exam - General 1994 Constitutional general appearance Overall: well developed 01/31/2017 None Full Exam - General 1994 Constitutional general appearance Overall: in no acute distress 01/31/2017 None Full Exam - General 1994 Constitutional general appearance Overall: well nourished 01/31/2017 None Full Exam - General 1994 Eyes pupils and irises Overall: pupils equal, round, reactive to light and accomodation 01/31/2017 None Full Exam - General 1994 Ears/Nose/Throat otoscopic exam Overall: external auditory canals clear 01/31/2017 None Full Exam - General 1994 Ears/Nose/Throat otoscopic exam Overall: tympanic membranes clear 01/31/2017 None Full Exam - General 1994 Ears/Nose/Throat oral cavity/pharynx/larynx Overall: oral mucosa clear 01/31/2017 None Full Exam - General 1994 Ears/Nose/Throat oral cavity/pharynx/larynx Overall: oropharyngeal mucosa clear 01/31/2017 None Full Exam - General 1994 Ears/Nose/Throat oral cavity/pharynx/larynx Overall: no masses 01/31/2017 None Full Exam - General 1994 Respiratory auscultation Overall: breath sounds clear bilaterally 01/31/2017 None Full Exam - General 1994 Respiratory respiratory effort/rhythm Overall: no retractions 01/31/2017 None Full Exam - General 1994 Respiratory respiratory effort/rhythm Overall: normal rate 01/31/2017 None Full Exam - General 1994 Cardiovascular auscultation of heart Overall: regular rate 01/31/2017 None Full Exam - General 1994 Cardiovascular auscultation of heart Overall: normal heart sounds 01/31/2017 None Full Exam - General 1994 Cardiovascular auscultation of heart Overall: no murmurs 01/31/2017 None Full Exam - General 1994 Abdomen abdominal exam Overall: no tenderness 01/31/2017 None Full Exam - General 1994 Abdomen abdominal exam Overall: normal bowel sounds 01/31/2017 None Full Exam - General 1994 Abdomen abdominal exam Contour: rounded 01/31/2017 None Full Exam - General 1994 Musculoskeletal digits and nails Overall: no clubbing 01/31/2017 None Full Exam - General 1994 Musculoskeletal digits and nails Overall: digits benign 01/31/2017 None Full Exam - General 1994 Musculoskeletal spine, ribs and pelvis Overall: spine benign 01/31/2017 None Full Exam - General 1994 Musculoskeletal spine, ribs and pelvis Overall: sacroiliac joint benign 01/31/2017 None Full Exam - General 1994 Musculoskeletal spine, ribs and pelvis Overall: good posture 01/31/2017 None Full Exam - General 1994 Musculoskeletal gait and station Overall: normal gait 01/31/2017 None Full Exam - General 1994 Musculoskeletal gait and station Overall: normal station 01/31/2017 None Full Exam - General 1994 Neurologic gait Overall: no ataxia, no unsteadiness 01/31/2017 None Full Exam - General 1994 Psychiatric orientation/consciousness Overall: oriented to person, place and time 01/31/2017 None Full Exam - General 1994 Psychiatric mood and affect Overall: normal mood and affect 01/31/2017 None Full Exam - General 1994 Constitutional general appearance Overall: well developed 10/25/2016 None Full Exam - General 1994 Constitutional general appearance Overall: in no acute distress 10/25/2016 None Full Exam - General 1994 Constitutional general appearance Overall: well nourished 10/25/2016 None Full Exam - General 1994 Eyes pupils and irises Overall: pupils equal, round, reactive to light and accomodation 10/25/2016 None Full Exam - General 1994 Ears/Nose/Throat otoscopic exam Overall: external auditory canals clear 10/25/2016 None Full Exam - General 1994 Ears/Nose/Throat otoscopic exam Overall: tympanic membranes clear 10/25/2016 None Full Exam - General 1994 Ears/Nose/Throat oral cavity/pharynx/larynx Overall: oral mucosa clear 10/25/2016 None Full Exam - General 1994 Ears/Nose/Throat oral cavity/pharynx/larynx Overall: oropharyngeal mucosa clear 10/25/2016 None Full Exam - General 1994 Ears/Nose/Throat oral cavity/pharynx/larynx Overall: no masses 10/25/2016 None Full Exam - General 1994 Respiratory auscultation Overall: breath sounds clear bilaterally 10/25/2016 None Full Exam - General 1994 Respiratory respiratory effort/rhythm Overall: no retractions 10/25/2016 None Full Exam - General 1994 Respiratory respiratory effort/rhythm Overall: normal rate 10/25/2016 None Full Exam - General 1994 Cardiovascular auscultation of heart Overall: regular rate 10/25/2016 None Full Exam - General 1994 Cardiovascular auscultation of heart Overall: normal heart sounds 10/25/2016 None Full Exam - General 1994 Cardiovascular auscultation of heart Overall: no murmurs 10/25/2016 None Full Exam - General 1994 Abdomen abdominal exam Overall: no tenderness 10/25/2016 None Full Exam - General 1994 Abdomen abdominal exam Overall: normal bowel sounds 10/25/2016 None Full Exam - General 1994 Abdomen abdominal exam Contour: rounded 10/25/2016 None Full Exam - General 1994 Musculoskeletal digits and nails Overall: no clubbing 10/25/2016 None Full Exam - General 1994 Musculoskeletal digits and nails Overall: digits benign 10/25/2016 None Full Exam - General 1994 Musculoskeletal spine, ribs and pelvis Overall: sacroiliac joint benign 10/25/2016 None Full Exam - General 1994 Musculoskeletal spine, ribs and pelvis Posture: lordosis 10/25/2016 None Full Exam - General 1994 Musculoskeletal gait and station Overall: normal gait 10/25/2016 None Full Exam - General 1994 Musculoskeletal gait and station Overall: normal station 10/25/2016 None Full Exam - General 1994 Neurologic gait Overall: no ataxia, no unsteadiness 10/25/2016 None Full Exam - General 1994 Psychiatric orientation/consciousness Overall: oriented to person, place and time 10/25/2016 None Full Exam - General 1994 Psychiatric mood and affect Overall: normal mood and affect 10/25/2016 None Full Exam - General 1994 Constitutional general appearance Overall: well developed 07/27/2016 None Full Exam - General 1994 Constitutional general appearance Overall: in no acute distress 07/27/2016 None Full Exam - General 1994 Constitutional general appearance Overall: well nourished 07/27/2016 None Full Exam - General 1994 Eyes pupils and irises Overall: pupils equal, round, reactive to light and accomodation 07/27/2016 None Full Exam - General 1994 Ears/Nose/Throat otoscopic exam Overall: external auditory canals clear 07/27/2016 None Full Exam - General 1994 Ears/Nose/Throat otoscopic exam Overall: tympanic membranes clear 07/27/2016 None Full Exam - General 1994 Ears/Nose/Throat oral cavity/pharynx/larynx Overall: oral mucosa clear 07/27/2016 None Full Exam - General 1994 Ears/Nose/Throat oral cavity/pharynx/larynx Overall: oropharyngeal mucosa clear 07/27/2016 None Full Exam - General 1994 Ears/Nose/Throat oral cavity/pharynx/larynx Overall: no masses 07/27/2016 None Full Exam - General 1994 Respiratory auscultation Overall: breath sounds clear bilaterally 07/27/2016 None Full Exam - General 1994 Respiratory respiratory effort/rhythm Overall: no retractions 07/27/2016 None Full Exam - General 1994 Respiratory respiratory effort/rhythm Overall: normal rate 07/27/2016 None Full Exam - General 1994 Cardiovascular auscultation of heart Overall: regular rate 07/27/2016 None Full Exam - General 1994 Cardiovascular auscultation of heart Overall: normal heart sounds 07/27/2016 None Full Exam - General 1994 Cardiovascular auscultation of heart Overall: no murmurs 07/27/2016 None Full Exam - General 1994 Abdomen abdominal exam Overall: no tenderness 07/27/2016 None Full Exam - General 1994 Abdomen abdominal exam Overall: normal bowel sounds 07/27/2016 None Full Exam - General 1994 Abdomen abdominal exam Contour: rounded 07/27/2016 None Full Exam - General 1994 Musculoskeletal digits and nails Overall: no clubbing 07/27/2016 None Full Exam - General 1994 Musculoskeletal digits and nails Overall: digits benign 07/27/2016 None Full Exam - General 1994 Musculoskeletal spine, ribs and pelvis Overall: sacroiliac joint benign 07/27/2016 None Full Exam - General 1994 Musculoskeletal spine, ribs and pelvis Posture: lordosis 07/27/2016 None Full Exam - General 1994 Musculoskeletal gait and station Overall: normal gait 07/27/2016 None Full Exam - General 1994 Musculoskeletal gait and station Overall: normal station 07/27/2016 None Full Exam - General 1994 Neurologic gait Overall: no ataxia, no unsteadiness 07/27/2016 None Full Exam - General 1994 Psychiatric orientation/consciousness Overall: oriented to person, place and time 07/27/2016 None Full Exam - General 1994 Psychiatric mood and affect Overall: normal mood and affect 07/27/2016 None Full Exam - General 1994 Constitutional general appearance Overall: well developed 05/26/2016 None Full Exam - General 1994 Constitutional general appearance Overall: in no acute distress 05/26/2016 None Full Exam - General 1994 Constitutional general appearance Overall: well nourished 05/26/2016 None Full Exam - General 1994 Eyes pupils and irises Overall: pupils equal, round, reactive to light and accomodation 05/26/2016 None Full Exam - General 1994 Ears/Nose/Throat otoscopic exam Overall: external auditory canals clear 05/26/2016 None Full Exam - General 1994 Ears/Nose/Throat otoscopic exam Overall: tympanic membranes clear 05/26/2016 None Full Exam - General 1994 Ears/Nose/Throat oral cavity/pharynx/larynx Overall: oral mucosa clear 05/26/2016 None Full Exam - General 1994 Ears/Nose/Throat oral cavity/pharynx/larynx Overall: oropharyngeal mucosa clear 05/26/2016 None Full Exam - General 1994 Ears/Nose/Throat oral cavity/pharynx/larynx Overall: no masses 05/26/2016 None Full Exam - General 1994 Respiratory auscultation Overall: breath sounds clear bilaterally 05/26/2016 None Full Exam - General 1994 Respiratory respiratory effort/rhythm Overall: no retractions 05/26/2016 None Full Exam - General 1994 Respiratory respiratory effort/rhythm Overall: normal rate 05/26/2016 None Full Exam - General 1994 Cardiovascular auscultation of heart Overall: regular rate 05/26/2016 None Full Exam - General 1994 Cardiovascular auscultation of heart Overall: normal heart sounds 05/26/2016 None Full Exam - General 1994 Cardiovascular auscultation of heart Overall: no murmurs 05/26/2016 None Full Exam - General 1994 Abdomen abdominal exam Overall: no tenderness 05/26/2016 None Full Exam - General 1994 Abdomen abdominal exam Overall: normal bowel sounds 05/26/2016 None Full Exam - General 1994 Abdomen abdominal exam Contour: rounded 05/26/2016 None Full Exam - General 1994 Musculoskeletal digits and nails Overall: no clubbing 05/26/2016 None Full Exam - General 1994 Musculoskeletal digits and nails Overall: digits benign 05/26/2016 None Full Exam - General 1994 Musculoskeletal spine, ribs and pelvis Overall: sacroiliac joint benign 05/26/2016 None Full Exam - General 1994 Musculoskeletal spine, ribs and pelvis Posture: lordosis 05/26/2016 None Full Exam - General 1994 Musculoskeletal gait and station Overall: normal gait 05/26/2016 None Full Exam - General 1994 Musculoskeletal gait and station Overall: normal station 05/26/2016 None Full Exam - General 1994 Neurologic gait Overall: no ataxia, no unsteadiness 05/26/2016 None Full Exam - General 1994 Psychiatric orientation/consciousness Overall: oriented to person, place and time 05/26/2016 None Full Exam - General 1994 Psychiatric mood and affect Overall: normal mood and affect 05/26/2016 None Full Exam - General 1994 Constitutional general appearance Overall: well developed 05/12/2016 None Full Exam - General 1994 Constitutional general appearance Overall: in no acute distress 05/12/2016 None Full Exam - General 1994 Constitutional general appearance Overall: well nourished 05/12/2016 None Full Exam - General 1994 Eyes pupils and irises Overall: pupils equal, round, reactive to light and accomodation 05/12/2016 None Full Exam - General 1994 Ears/Nose/Throat otoscopic exam Overall: external auditory canals clear 05/12/2016 None Full Exam - General 1994 Ears/Nose/Throat otoscopic exam Overall: tympanic membranes clear 05/12/2016 None Full Exam - General 1994 Ears/Nose/Throat oral cavity/pharynx/larynx Overall: oral mucosa clear 05/12/2016 None Full Exam - General 1994 Ears/Nose/Throat oral cavity/pharynx/larynx Overall: oropharyngeal mucosa clear 05/12/2016 None Full Exam - General 1994 Ears/Nose/Throat oral cavity/pharynx/larynx Overall: no masses 05/12/2016 None Full Exam - General 1994 Respiratory auscultation Overall: breath sounds clear bilaterally 05/12/2016 None Full Exam - General 1994 Respiratory respiratory effort/rhythm Overall: no retractions 05/12/2016 None Full Exam - General 1994 Respiratory respiratory effort/rhythm Overall: normal rate 05/12/2016 None Full Exam - General 1994 Cardiovascular auscultation of heart Overall: regular rate 05/12/2016 None Full Exam - General 1994 Cardiovascular auscultation of heart Overall: normal heart sounds 05/12/2016 None Full Exam - General 1994 Cardiovascular auscultation of heart Overall: no murmurs 05/12/2016 None Full Exam - General 1994 Abdomen abdominal exam Overall: no tenderness 05/12/2016 None Full Exam - General 1994 Abdomen abdominal exam Overall: normal bowel sounds 05/12/2016 None Full Exam - General 1994 Abdomen abdominal exam Contour: rounded 05/12/2016 None Full Exam - General 1994 Musculoskeletal digits and nails Overall: no clubbing 05/12/2016 None Full Exam - General 1994 Musculoskeletal digits and nails Overall: digits benign 05/12/2016 None Full Exam - General 1994 Musculoskeletal spine, ribs and pelvis Overall: sacroiliac joint benign 05/12/2016 None Full Exam - General 1994 Musculoskeletal spine, ribs and pelvis Posture: lordosis 05/12/2016 None Full Exam - General 1994 Musculoskeletal gait and station Overall: normal gait 05/12/2016 None Full Exam - General 1994 Musculoskeletal gait and station Overall: normal station 05/12/2016 None Full Exam - General 1994 Neurologic gait Overall: no ataxia, no unsteadiness 05/12/2016 None Full Exam - General 1994 Psychiatric orientation/consciousness Overall: oriented to person, place and time 05/12/2016 None Full Exam - General 1994 Psychiatric mood and affect Overall: normal mood and affect 05/12/2016 None Full Exam - General 1994 Constitutional general appearance Overall: well developed 02/23/2016 None Full Exam - General 1994 Constitutional general appearance Overall: in no acute distress 02/23/2016 None Full Exam - General 1994 Constitutional general appearance Overall: well nourished 02/23/2016 None Full Exam - General 1994 Eyes pupils and irises Overall: pupils equal, round, reactive to light and accomodation 02/23/2016 None Full Exam - General 1994 Ears/Nose/Throat otoscopic exam Overall: external auditory canals clear 02/23/2016 None Full Exam - General 1994 Ears/Nose/Throat otoscopic exam Overall: tympanic membranes clear 02/23/2016 None Full Exam - General 1994 Ears/Nose/Throat oral cavity/pharynx/larynx Overall: oral mucosa clear 02/23/2016 None Full Exam - General 1994 Ears/Nose/Throat oral cavity/pharynx/larynx Overall: oropharyngeal mucosa clear 02/23/2016 None Full Exam - General 1994 Ears/Nose/Throat oral cavity/pharynx/larynx Overall: no masses 02/23/2016 None Full Exam - General 1994 Respiratory auscultation Overall: breath sounds clear bilaterally 02/23/2016 None Full Exam - General 1994 Respiratory respiratory effort/rhythm Overall: no retractions 02/23/2016 None Full Exam - General 1994 Respiratory respiratory effort/rhythm Overall: normal rate 02/23/2016 None Full Exam - General 1994 Cardiovascular auscultation of heart Overall: regular rate 02/23/2016 None Full Exam - General 1994 Cardiovascular auscultation of heart Overall: normal heart sounds 02/23/2016 None Full Exam - General 1994 Cardiovascular auscultation of heart Overall: no murmurs 02/23/2016 None Full Exam - General 1994 Abdomen abdominal exam Overall: no tenderness 02/23/2016 None Full Exam - General 1994 Abdomen abdominal exam Overall: normal bowel sounds 02/23/2016 None Full Exam - General 1994 Abdomen abdominal exam Contour: rounded 02/23/2016 None Full Exam - General 1994 Musculoskeletal digits and nails Overall: no clubbing 02/23/2016 None Full Exam - General 1994 Musculoskeletal digits and nails Overall: digits benign 02/23/2016 None Full Exam - General 1994 Musculoskeletal spine, ribs and pelvis Overall: sacroiliac joint benign 02/23/2016 None Full Exam - General 1994 Musculoskeletal gait and station Overall: normal gait 02/23/2016 None Full Exam - General 1994 Musculoskeletal gait and station Overall: normal station 02/23/2016 None Full Exam - General 1994 Neurologic gait Overall: no ataxia, no unsteadiness 02/23/2016 None Full Exam - General 1994 Psychiatric orientation/consciousness Overall: oriented to person, place and time 02/23/2016 None Full Exam - General 1994 Psychiatric mood and affect Overall: normal mood and affect 02/23/2016 None Full Exam - General 1994 Musculoskeletal spine, ribs and pelvis Posture: lordosis 02/23/2016 None Full Exam - General 1994 Constitutional general appearance Overall: well developed 12/10/2015 None Full Exam - General 1994 Constitutional general appearance Overall: in no acute distress 12/10/2015 None Full Exam - General 1994 Constitutional general appearance Overall: well nourished 12/10/2015 None Full Exam - General 1994 Eyes pupils and irises Overall: pupils equal, round, reactive to light and accomodation 12/10/2015 None Full Exam - General 1994 Ears/Nose/Throat otoscopic exam Overall: external auditory canals clear 12/10/2015 None Full Exam - General 1994 Ears/Nose/Throat otoscopic exam Overall: tympanic membranes clear 12/10/2015 None Full Exam - General 1994 Ears/Nose/Throat oral cavity/pharynx/larynx Overall: oral mucosa clear 12/10/2015 None Full Exam - General 1994 Ears/Nose/Throat oral cavity/pharynx/larynx Overall: oropharyngeal mucosa clear 12/10/2015 None Full Exam - General 1994 Ears/Nose/Throat oral cavity/pharynx/larynx Overall: no masses 12/10/2015 None Full Exam - General 1994 Respiratory auscultation Overall: breath sounds clear bilaterally 12/10/2015 None Full Exam - General 1994 Respiratory respiratory effort/rhythm Overall: no retractions 12/10/2015 None Full Exam - General 1994 Respiratory respiratory effort/rhythm Overall: normal rate 12/10/2015 None Full Exam - General 1994 Cardiovascular auscultation of heart Overall: regular rate 12/10/2015 None Full Exam - General 1994 Cardiovascular auscultation of heart Overall: normal heart sounds 12/10/2015 None Full Exam - General 1994 Cardiovascular auscultation of heart Overall: no murmurs 12/10/2015 None Full Exam - General 1994 Abdomen abdominal exam Overall: no tenderness 12/10/2015 None Full Exam - General 1994 Abdomen abdominal exam Overall: normal bowel sounds 12/10/2015 None Full Exam - General 1994 Abdomen abdominal exam Contour: rounded 12/10/2015 None Full Exam - General 1994 Musculoskeletal digits and nails Overall: no clubbing 12/10/2015 None Full Exam - General 1994 Musculoskeletal digits and nails Overall: digits benign 12/10/2015 None Full Exam - General 1994 Musculoskeletal spine, ribs and pelvis Overall: spine benign 12/10/2015 None Full Exam - General 1994 Musculoskeletal spine, ribs and pelvis Overall: sacroiliac joint benign 12/10/2015 None Full Exam - General 1994 Musculoskeletal spine, ribs and pelvis Overall: good posture 12/10/2015 None Full Exam - General 1994 Musculoskeletal gait and station Overall: normal gait 12/10/2015 None Full Exam - General 1994 Musculoskeletal gait and station Overall: normal station 12/10/2015 None Full Exam - General 1994 Neurologic gait Overall: no ataxia, no unsteadiness 12/10/2015 None Full Exam - General 1994 Psychiatric orientation/consciousness Overall: oriented to person, place and time 12/10/2015 None Full Exam - General 1994 Psychiatric mood and affect Overall: normal mood and affect 12/10/2015 None Full Exam - General 1994 Constitutional general appearance Overall: well developed 11/10/2015 None Full Exam - General 1994 Constitutional general appearance Overall: in no acute distress 11/10/2015 None Full Exam - General 1994 Constitutional general appearance Overall: well nourished 11/10/2015 None Full Exam - General 1994 Eyes pupils and irises Overall: pupils equal, round, reactive to light and accomodation 11/10/2015 None Full Exam - General 1994 Ears/Nose/Throat otoscopic exam Overall: external auditory canals clear 11/10/2015 None Full Exam - General 1994 Ears/Nose/Throat otoscopic exam Overall: tympanic membranes clear 11/10/2015 None Full Exam - General 1994 Ears/Nose/Throat oral cavity/pharynx/larynx Overall: oral mucosa clear 11/10/2015 None Full Exam - General 1994 Ears/Nose/Throat oral cavity/pharynx/larynx Overall: oropharyngeal mucosa clear 11/10/2015 None Full Exam - General 1994 Ears/Nose/Throat oral cavity/pharynx/larynx Overall: no masses 11/10/2015 None Full Exam - General 1994 Respiratory auscultation Overall: breath sounds clear bilaterally 11/10/2015 None Full Exam - General 1994 Respiratory respiratory effort/rhythm Overall: no retractions 11/10/2015 None Full Exam - General 1994 Respiratory respiratory effort/rhythm Overall: normal rate 11/10/2015 None Full Exam - General 1994 Cardiovascular auscultation of heart Overall: regular rate 11/10/2015 None Full Exam - General 1994 Cardiovascular auscultation of heart Overall: normal heart sounds 11/10/2015 None Full Exam - General 1994 Cardiovascular auscultation of heart Overall: no murmurs 11/10/2015 None Full Exam - General 1994 Abdomen abdominal exam Overall: no tenderness 11/10/2015 None Full Exam - General 1994 Abdomen abdominal exam Overall: normal bowel sounds 11/10/2015 None Full Exam - General 1994 Abdomen abdominal exam Contour: rounded 11/10/2015 None Full Exam - General 1994 Musculoskeletal digits and nails Overall: no clubbing 11/10/2015 None Full Exam - General 1994 Musculoskeletal digits and nails Overall: digits benign 11/10/2015 None Full Exam - General 1994 Musculoskeletal spine, ribs and pelvis Overall: spine benign 11/10/2015 None Full Exam - General 1994 Musculoskeletal spine, ribs and pelvis Overall: sacroiliac joint benign 11/10/2015 None Full Exam - General 1994 Musculoskeletal spine, ribs and pelvis Overall: good posture 11/10/2015 None Full Exam - General 1994 Musculoskeletal gait and station Overall: normal gait 11/10/2015 None Full Exam - General 1994 Musculoskeletal gait and station Overall: normal station 11/10/2015 None Full Exam - General 1994 Neurologic gait Overall: no ataxia, no unsteadiness 11/10/2015 None Full Exam - General 1994 Psychiatric orientation/consciousness Overall: oriented to person, place and time 11/10/2015 None Full Exam - General 1994 Psychiatric mood and affect Overall: normal mood and affect 11/10/2015 None Full Exam - General 1994 Constitutional general appearance Overall: well developed 08/07/2015 None Full Exam - General 1994 Constitutional general appearance Overall: in no acute distress 08/07/2015 None Full Exam - General 1994 Constitutional general appearance Overall: well nourished 08/07/2015 None Full Exam - General 1994 Eyes pupils and irises Overall: pupils equal, round, reactive to light and accomodation 08/07/2015 None Full Exam - General 1994 Ears/Nose/Throat otoscopic exam Overall: external auditory canals clear 08/07/2015 None Full Exam - General 1994 Ears/Nose/Throat otoscopic exam Overall: tympanic membranes clear 08/07/2015 None Full Exam - General 1994 Ears/Nose/Throat oral cavity/pharynx/larynx Overall: oral mucosa clear 08/07/2015 None Full Exam - General 1994 Ears/Nose/Throat oral cavity/pharynx/larynx Overall: oropharyngeal mucosa clear 08/07/2015 None Full Exam - General 1994 Ears/Nose/Throat oral cavity/pharynx/larynx Overall: no masses 08/07/2015 None Full Exam - General 1994 Respiratory auscultation Overall: breath sounds clear bilaterally 08/07/2015 None Full Exam - General 1994 Respiratory respiratory effort/rhythm Overall: no retractions 08/07/2015 None Full Exam - General 1994 Respiratory respiratory effort/rhythm Overall: normal rate 08/07/2015 None Full Exam - General 1994 Cardiovascular auscultation of heart Overall: regular rate 08/07/2015 None Full Exam - General 1994 Cardiovascular auscultation of heart Overall: normal heart sounds 08/07/2015 None Full Exam - General 1994 Cardiovascular auscultation of heart Overall: no murmurs 08/07/2015 None Full Exam - General 1994 Abdomen abdominal exam Overall: no tenderness 08/07/2015 None Full Exam - General 1994 Abdomen abdominal exam Overall: normal bowel sounds 08/07/2015 None Full Exam - General 1994 Abdomen abdominal exam Contour: rounded 08/07/2015 None Full Exam - General 1994 Musculoskeletal digits and nails Overall: no clubbing 08/07/2015 None Full Exam - General 1994 Musculoskeletal digits and nails Overall: digits benign 08/07/2015 None Full Exam - General 1994 Musculoskeletal spine, ribs and pelvis Overall: spine benign 08/07/2015 None Full Exam - General 1994 Musculoskeletal spine, ribs and pelvis Overall: sacroiliac joint benign 08/07/2015 None Full Exam - General 1994 Musculoskeletal spine, ribs and pelvis Overall: good posture 08/07/2015 None Full Exam - General 1994 Musculoskeletal gait and station Overall: normal gait 08/07/2015 None Full Exam - General 1994 Musculoskeletal gait and station Overall: normal station 08/07/2015 None Full Exam - General 1994 Neurologic gait Overall: no ataxia, no unsteadiness 08/07/2015 None Full Exam - General 1994 Psychiatric orientation/consciousness Overall: oriented to person, place and time 08/07/2015 None Full Exam - General 1994 Psychiatric mood and affect Overall: normal mood and affect 08/07/2015 None Full Exam - General 1994 Constitutional general appearance Overall: well developed 07/07/2015 None Full Exam - General 1994 Constitutional general appearance Overall: in no acute distress 07/07/2015 None Full Exam - General 1994 Constitutional general appearance Overall: well nourished 07/07/2015 None Full Exam - General 1994 Eyes pupils and irises Overall: pupils equal, round, reactive to light and accomodation 07/07/2015 None Full Exam - General 1994 Ears/Nose/Throat otoscopic exam Overall: external auditory canals clear 07/07/2015 None Full Exam - General 1994 Ears/Nose/Throat otoscopic exam Overall: tympanic membranes clear 07/07/2015 None Full Exam - General 1994 Ears/Nose/Throat oral cavity/pharynx/larynx Overall: oral mucosa clear 07/07/2015 None Full Exam - General 1994 Ears/Nose/Throat oral cavity/pharynx/larynx Overall: oropharyngeal mucosa clear 07/07/2015 None Full Exam - General 1994 Ears/Nose/Throat oral cavity/pharynx/larynx Overall: no masses 07/07/2015 None Full Exam - General 1994 Respiratory auscultation Overall: breath sounds clear bilaterally 07/07/2015 None Full Exam - General 1994 Respiratory respiratory effort/rhythm Overall: no retractions 07/07/2015 None Full Exam - General 1994 Respiratory respiratory effort/rhythm Overall: normal rate 07/07/2015 None Full Exam - General 1994 Cardiovascular auscultation of heart Overall: regular rate 07/07/2015 None Full Exam - General 1994 Cardiovascular auscultation of heart Overall: normal heart sounds 07/07/2015 None Full Exam - General 1994 Cardiovascular auscultation of heart Overall: no murmurs 07/07/2015 None Full Exam - General 1994 Abdomen abdominal exam Overall: no tenderness 07/07/2015 None Full Exam - General 1994 Abdomen abdominal exam Overall: normal bowel sounds 07/07/2015 None Full Exam - General 1994 Abdomen abdominal exam Contour: rounded 07/07/2015 None Full Exam - General 1994 Musculoskeletal digits and nails Overall: no clubbing 07/07/2015 None Full Exam - General 1994 Musculoskeletal digits and nails Overall: digits benign 07/07/2015 None Full Exam - General 1994 Musculoskeletal spine, ribs and pelvis Overall: spine benign 07/07/2015 None Full Exam - General 1994 Musculoskeletal spine, ribs and pelvis Overall: sacroiliac joint benign 07/07/2015 None Full Exam - General 1994 Musculoskeletal spine, ribs and pelvis Overall: good posture 07/07/2015 None Full Exam - General 1994 Musculoskeletal gait and station Overall: normal gait 07/07/2015 None Full Exam - General 1994 Musculoskeletal gait and station Overall: normal station 07/07/2015 None Full Exam - General 1994 Neurologic gait Overall: no ataxia, no unsteadiness 07/07/2015 None Full Exam - General 1994 Psychiatric orientation/consciousness Overall: oriented to person, place and time 07/07/2015 None Full Exam - General 1994 Psychiatric mood and affect Overall: normal mood and affect 07/07/2015 None Full Exam - General 1994 Constitutional general appearance Overall: well developed 04/02/2015 None Full Exam - General 1994 Constitutional general appearance Overall: in no acute distress 04/02/2015 None Full Exam - General 1994 Constitutional general appearance Overall: well nourished 04/02/2015 None Full Exam - General 1994 Constitutional general appearance Hygiene/Attention to Grooming: good hygiene 04/02/2015 None Full Exam - General 1994 Eyes pupils and irises Overall: pupils equal, round, reactive to light and accomodation 04/02/2015 None Full Exam - General 1994 Ears/Nose/Throat otoscopic exam Overall: external auditory canals clear 04/02/2015 None Full Exam - General 1994 Ears/Nose/Throat otoscopic exam Overall: tympanic membranes clear 04/02/2015 None Full Exam - General 1994 Ears/Nose/Throat oral cavity/pharynx/larynx Overall: oral mucosa clear 04/02/2015 None Full Exam - General 1994 Ears/Nose/Throat oral cavity/pharynx/larynx Overall: oropharyngeal mucosa clear 04/02/2015 None Full Exam - General 1994 Ears/Nose/Throat oral cavity/pharynx/larynx Overall: no masses 04/02/2015 None Full Exam - General 1994 Respiratory auscultation Overall: breath sounds clear bilaterally 04/02/2015 None Full Exam - General 1994 Respiratory respiratory effort/rhythm Overall: no retractions 04/02/2015 None Full Exam - General 1994 Respiratory respiratory effort/rhythm Overall: normal rate 04/02/2015 None Full Exam - General 1994 Cardiovascular auscultation of heart Overall: regular rate 04/02/2015 None Full Exam - General 1994 Cardiovascular auscultation of heart Overall: normal heart sounds 04/02/2015 None Full Exam - General 1994 Abdomen abdominal exam Overall: no tenderness 04/02/2015 None Full Exam - General 1994 Abdomen abdominal exam Overall: normal bowel sounds 04/02/2015 None Full Exam - General 1994 Abdomen abdominal exam Contour: rounded 04/02/2015 None Full Exam - General 1994 Neurologic gait Overall: no ataxia, no unsteadiness 04/02/2015 None Full Exam - General 1994 Psychiatric orientation/consciousness Overall: oriented to person, place and time 04/02/2015 None Full Exam - General 1994 Psychiatric mood and affect Overall: normal mood and affect 04/02/2015 None Full Exam - General 1994 Constitutional general appearance Overall: well developed 12/23/2014 None Full Exam - General 1994 Constitutional general appearance Overall: in no acute distress 12/23/2014 None Full Exam - General 1994 Constitutional general appearance Overall: well nourished 12/23/2014 None Full Exam - General 1994 Eyes pupils and irises Overall: pupils equal, round, reactive to light and accomodation 12/23/2014 None Full Exam - General 1994 Ears/Nose/Throat otoscopic exam Overall: external auditory canals clear 12/23/2014 None Full Exam - General 1994 Ears/Nose/Throat otoscopic exam Overall: tympanic membranes clear 12/23/2014 None Full Exam - General 1994 Ears/Nose/Throat oral cavity/pharynx/larynx Overall: oral mucosa clear 12/23/2014 None Full Exam - General 1994 Ears/Nose/Throat oral cavity/pharynx/larynx Overall: oropharyngeal mucosa clear 12/23/2014 None Full Exam - General 1994 Ears/Nose/Throat oral cavity/pharynx/larynx Overall: no masses 12/23/2014 None Full Exam - General 1994 Respiratory auscultation Overall: breath sounds clear bilaterally 12/23/2014 None Full Exam - General 1994 Respiratory respiratory effort/rhythm Overall: no retractions 12/23/2014 None Full Exam - General 1994 Respiratory respiratory effort/rhythm Overall: normal rate 12/23/2014 None Full Exam - General 1994 Cardiovascular auscultation of heart Overall: regular rate 12/23/2014 None Full Exam - General 1994 Cardiovascular auscultation of heart Overall: normal heart sounds 12/23/2014 None Full Exam - General 1994 Cardiovascular auscultation of heart Overall: no murmurs 12/23/2014 None Full Exam - General 1994 Abdomen abdominal exam Overall: no tenderness 12/23/2014 None Full Exam - General 1994 Abdomen abdominal exam Overall: normal bowel sounds 12/23/2014 None Full Exam - General 1994 Abdomen abdominal exam Contour: rounded 12/23/2014 None Full Exam - General 1994 Musculoskeletal digits and nails Overall: no clubbing 12/23/2014 None Full Exam - General 1994 Musculoskeletal digits and nails Overall: digits benign 12/23/2014 None Full Exam - General 1994 Musculoskeletal spine, ribs and pelvis Overall: spine benign 12/23/2014 None Full Exam - General 1994 Musculoskeletal spine, ribs and pelvis Overall: sacroiliac joint benign 12/23/2014 None Full Exam - General 1994 Musculoskeletal spine, ribs and pelvis Overall: good posture 12/23/2014 None Full Exam - General 1994 Musculoskeletal gait and station Overall: normal gait 12/23/2014 None Full Exam - General 1994 Musculoskeletal gait and station Overall: normal station 12/23/2014 None Full Exam - General 1994 Neurologic gait Overall: no ataxia, no unsteadiness 12/23/2014 None Full Exam - General 1994 Psychiatric orientation/consciousness Overall: oriented to person, place and time 12/23/2014 None Full Exam - General 1994 Psychiatric mood and affect Overall: normal mood and affect 12/23/2014 None Full Exam - General 1994 Constitutional general appearance Overall: well developed 10/22/2014 None Full Exam - General 1994 Constitutional general appearance Overall: in no acute distress 10/22/2014 None Full Exam - General 1994 Constitutional general appearance Overall: well nourished 10/22/2014 None Full Exam - General 1994 Eyes pupils and irises Overall: pupils equal, round, reactive to light and accomodation 10/22/2014 None Full Exam - General 1994 Ears/Nose/Throat otoscopic exam Overall: external auditory canals clear 10/22/2014 None Full Exam - General 1994 Ears/Nose/Throat otoscopic exam Overall: tympanic membranes clear 10/22/2014 None Full Exam - General 1994 Ears/Nose/Throat oral cavity/pharynx/larynx Overall: oral mucosa clear 10/22/2014 None Full Exam - General 1994 Ears/Nose/Throat oral cavity/pharynx/larynx Overall: oropharyngeal mucosa clear 10/22/2014 None Full Exam - General 1994 Ears/Nose/Throat oral cavity/pharynx/larynx Overall: no masses 10/22/2014 None Full Exam - General 1994 Respiratory auscultation Overall: breath sounds clear bilaterally 10/22/2014 None Full Exam - General 1994 Respiratory respiratory effort/rhythm Overall: no retractions 10/22/2014 None Full Exam - General 1994 Respiratory respiratory effort/rhythm Overall: normal rate 10/22/2014 None Full Exam - General 1994 Cardiovascular auscultation of heart Overall: regular rate 10/22/2014 None Full Exam - General 1994 Cardiovascular auscultation of heart Overall: normal heart sounds 10/22/2014 None Full Exam - General 1994 Cardiovascular auscultation of heart Overall: no murmurs 10/22/2014 None Full Exam - General 1994 Abdomen abdominal exam Overall: no tenderness 10/22/2014 None Full Exam - General 1994 Abdomen abdominal exam Overall: normal bowel sounds 10/22/2014 None Full Exam - General 1994 Abdomen abdominal exam Contour: rounded 10/22/2014 None Full Exam - General 1994 Musculoskeletal digits and nails Overall: no clubbing 10/22/2014 None Full Exam - General 1994 Musculoskeletal digits and nails Overall: digits benign 10/22/2014 None Full Exam - General 1994 Musculoskeletal spine, ribs and pelvis Overall: spine benign 10/22/2014 None Full Exam - General 1994 Musculoskeletal spine, ribs and pelvis Overall: sacroiliac joint benign 10/22/2014 None Full Exam - General 1994 Musculoskeletal spine, ribs and pelvis Overall: good posture 10/22/2014 None Full Exam - General 1994 Musculoskeletal gait and station Overall: normal gait 10/22/2014 None Full Exam - General 1994 Musculoskeletal gait and station Overall: normal station 10/22/2014 None Full Exam - General 1994 Neurologic gait Overall: no ataxia, no unsteadiness 10/22/2014 None Full Exam - General 1994 Psychiatric orientation/consciousness Overall: oriented to person, place and time 10/22/2014 None Full Exam - General 1994 Psychiatric mood and affect Overall: normal mood and affect 10/22/2014 None Full Exam - General 1994 Constitutional general appearance Overall: well developed 09/26/2014 None Full Exam - General 1994 Constitutional general appearance Overall: in no acute distress 09/26/2014 None Full Exam - General 1994 Constitutional general appearance Overall: well nourished 09/26/2014 None Full Exam - General 1994 Eyes pupils and irises Overall: pupils equal, round, reactive to light and accomodation 09/26/2014 None Full Exam - General 1994 Ears/Nose/Throat oral cavity/pharynx/larynx Overall: oral mucosa clear 09/26/2014 None Full Exam - General 1994 Ears/Nose/Throat oral cavity/pharynx/larynx Overall: no masses 09/26/2014 None Full Exam - General 1994 Respiratory respiratory effort/rhythm Overall: no retractions 09/26/2014 None Full Exam - General 1994 Respiratory respiratory effort/rhythm Overall: normal rate 09/26/2014 None Full Exam - General 1994 Cardiovascular auscultation of heart Overall: regular rate 09/26/2014 None Full Exam - General 1994 Cardiovascular auscultation of heart Overall: normal heart sounds 09/26/2014 None Full Exam - General 1994 Cardiovascular auscultation of heart Overall: no murmurs 09/26/2014 None Full Exam - General 1994 Musculoskeletal digits and nails Overall: no clubbing 09/26/2014 None Full Exam - General 1994 Musculoskeletal digits and nails Overall: digits benign 09/26/2014 None Full Exam - General 1994 Musculoskeletal spine, ribs and pelvis Overall: good posture 09/26/2014 None Full Exam - General 1994 Musculoskeletal gait and station Overall: normal gait 09/26/2014 None Full Exam - General 1994 Musculoskeletal gait and station Overall: normal station 09/26/2014 None Full Exam - General 1994 Psychiatric orientation/consciousness Overall: oriented to person, place and time 09/26/2014 None Full Exam - General 1994 Psychiatric mood and affect Overall: normal mood and affect 09/26/2014 None Full Exam - General 1994 Ears/Nose/Throat otoscopic exam Overall: tympanic membranes clear 09/26/2014 None Full Exam - General 1994 Ears/Nose/Throat otoscopic exam Overall: external auditory canals clear 09/26/2014 None Full Exam - General 1994 Respiratory auscultation Overall: breath sounds clear bilaterally 09/26/2014 None Full Exam - General 1994 Lymphatic neck nodes Overall: anterior cervical chain benign 09/26/2014 None Full Exam - General 1994 Lymphatic neck nodes Overall: posterior cervical chain benign 09/26/2014 None Full Exam - General 1994 Constitutional general appearance Overall: well developed 07/01/2014 None Full Exam - General 1994 Constitutional general appearance Overall: in no acute distress 07/01/2014 None Full Exam - General 1994 Constitutional general appearance Overall: well nourished 07/01/2014 None Full Exam - General 1994 Eyes pupils and irises Overall: pupils equal, round, reactive to light and accomodation 07/01/2014 None Full Exam - General 1994 Ears/Nose/Throat otoscopic exam Overall: external auditory canals clear 07/01/2014 None Full Exam - General 1994 Ears/Nose/Throat otoscopic exam Overall: tympanic membranes clear 07/01/2014 None Full Exam - General 1994 Ears/Nose/Throat oral cavity/pharynx/larynx Overall: oral mucosa clear 07/01/2014 None Full Exam - General 1994 Ears/Nose/Throat oral cavity/pharynx/larynx Overall: oropharyngeal mucosa clear 07/01/2014 None Full Exam - General 1994 Ears/Nose/Throat oral cavity/pharynx/larynx Overall: no masses 07/01/2014 None Full Exam - General 1994 Respiratory auscultation Overall: breath sounds clear bilaterally 07/01/2014 None Full Exam - General 1994 Respiratory respiratory effort/rhythm Overall: no retractions 07/01/2014 None Full Exam - General 1994 Respiratory respiratory effort/rhythm Overall: normal rate 07/01/2014 None Full Exam - General 1994 Cardiovascular auscultation of heart Overall: regular rate 07/01/2014 None Full Exam - General 1994 Cardiovascular auscultation of heart Overall: normal heart sounds 07/01/2014 None Full Exam - General 1994 Cardiovascular auscultation of heart Overall: no murmurs 07/01/2014 None Full Exam - General 1994 Abdomen abdominal exam Overall: no tenderness 07/01/2014 None Full Exam - General 1994 Abdomen abdominal exam Overall: normal bowel sounds 07/01/2014 None Full Exam - General 1994 Abdomen abdominal exam Contour: rounded 07/01/2014 None Full Exam - General 1994 Musculoskeletal digits and nails Overall: no clubbing 07/01/2014 None Full Exam - General 1994 Musculoskeletal digits and nails Overall: digits benign 07/01/2014 None Full Exam - General 1994 Musculoskeletal spine, ribs and pelvis Overall: spine benign 07/01/2014 None Full Exam - General 1994 Musculoskeletal spine, ribs and pelvis Overall: sacroiliac joint benign 07/01/2014 None Full Exam - General 1994 Musculoskeletal spine, ribs and pelvis Overall: good posture 07/01/2014 None Full Exam - General 1994 Musculoskeletal gait and station Overall: normal gait 07/01/2014 None Full Exam - General 1994 Musculoskeletal gait and station Overall: normal station 07/01/2014 None Full Exam - General 1994 Neurologic gait Overall: no ataxia, no unsteadiness 07/01/2014 None Full Exam - General 1994 Psychiatric orientation/consciousness Overall: oriented to person, place and time 07/01/2014 None Full Exam - General 1994 Psychiatric mood and affect Overall: normal mood and affect 07/01/2014 None Full Exam - General 1994 Constitutional general appearance Overall: well developed 06/09/2014 None Full Exam - General 1994 Constitutional general appearance Overall: in no acute distress 06/09/2014 None Full Exam - General 1994 Constitutional general appearance Overall: well nourished 06/09/2014 None Full Exam - General 1994 Eyes pupils and irises Overall: pupils equal, round, reactive to light and accomodation 06/09/2014 None Full Exam - General 1994 Ears/Nose/Throat otoscopic exam Overall: external auditory canals clear 06/09/2014 None Full Exam - General 1994 Ears/Nose/Throat otoscopic exam Overall: tympanic membranes clear 06/09/2014 None Full Exam - General 1994 Ears/Nose/Throat oral cavity/pharynx/larynx Overall: oral mucosa clear 06/09/2014 None Full Exam - General 1995 Ears/Nose/Throat oral cavity/pharynx/larynx Overall: oropharyngeal mucosa clear 06/09/2014 None Full Exam - General 1994 Ears/Nose/Throat oral cavity/pharynx/larynx Overall: no masses 06/09/2014 None Full Exam - General 1994 Respiratory auscultation Overall: breath sounds clear bilaterally 06/09/2014 None Full Exam - General 1994 Respiratory respiratory effort/rhythm Overall: no retractions 06/09/2014 None Full Exam - General 1994 Respiratory respiratory effort/rhythm Overall: normal rate 06/09/2014 None Full Exam - General 1994 Cardiovascular auscultation of heart Overall: regular rate 06/09/2014 None Full Exam - General 1994 Cardiovascular auscultation of heart Overall: normal heart sounds 06/09/2014 None Full Exam - General 1994 Cardiovascular auscultation of heart Overall: no murmurs 06/09/2014 None Full Exam - General 1994 Abdomen abdominal exam Overall: no tenderness 06/09/2014 None Full Exam - General 1994 Abdomen abdominal exam Overall: normal bowel sounds 06/09/2014 None Full Exam - General 1994 Abdomen abdominal exam Contour: rounded 06/09/2014 None Full Exam - General 1994 Musculoskeletal digits and nails Overall: no clubbing 06/09/2014 None Full Exam - General 1994 Musculoskeletal digits and nails Overall: digits benign 06/09/2014 None Full Exam - General 1994 Musculoskeletal spine, ribs and pelvis Overall: spine benign 06/09/2014 None Full Exam - General 1994 Musculoskeletal spine, ribs and pelvis Overall: sacroiliac joint benign 06/09/2014 None Full Exam - General 1994 Musculoskeletal spine, ribs and pelvis Overall: good posture 06/09/2014 None Full Exam - General 1994 Musculoskeletal gait and station Overall: normal gait 06/09/2014 None Full Exam - General 1994 Musculoskeletal gait and station Overall: normal station 06/09/2014 None Full Exam - General 1994 Neurologic gait Overall: no ataxia, no unsteadiness 06/09/2014 None Full Exam - General 1994 Psychiatric orientation/consciousness Overall: oriented to person, place and time 06/09/2014 None Full Exam - General 1994 Psychiatric mood and affect Overall: normal mood and affect 06/09/2014 None Full Exam - General 1994 Constitutional general appearance Overall: well developed 05/07/2014 None Full Exam - General 1994 Constitutional general appearance Overall: in no acute distress 05/07/2014 None Full Exam - General 1994 Constitutional general appearance Overall: well nourished 05/07/2014 None Full Exam - General 1994 Eyes pupils and irises Overall: pupils equal, round, reactive to light and accomodation 05/07/2014 None Full Exam - General 1994 Ears/Nose/Throat otoscopic exam Overall: external auditory canals clear 05/07/2014 None Full Exam - General 1994 Ears/Nose/Throat otoscopic exam Overall: tympanic membranes clear 05/07/2014 None Full Exam - General 1994 Ears/Nose/Throat oral cavity/pharynx/larynx Overall: oral mucosa clear 05/07/2014 None Full Exam - General 1994 Ears/Nose/Throat oral cavity/pharynx/larynx Overall: oropharyngeal mucosa clear 05/07/2014 None Full Exam - General 1994 Ears/Nose/Throat oral cavity/pharynx/larynx Overall: no masses 05/07/2014 None Full Exam - General 1994 Respiratory auscultation Overall: breath sounds clear bilaterally 05/07/2014 None Full Exam - General 1994 Respiratory respiratory effort/rhythm Overall: no retractions 05/07/2014 None Full Exam - General 1994 Respiratory respiratory effort/rhythm Overall: normal rate 05/07/2014 None Full Exam - General 1994 Cardiovascular auscultation of heart Overall: regular rate 05/07/2014 None Full Exam - General 1994 Cardiovascular auscultation of heart Overall: normal heart sounds 05/07/2014 None Full Exam - General 1994 Cardiovascular auscultation of heart Overall: no murmurs 05/07/2014 None Full Exam - General 1994 Abdomen abdominal exam Overall: no tenderness 05/07/2014 None Full Exam - General 1994 Abdomen abdominal exam Overall: normal bowel sounds 05/07/2014 None Full Exam - General 1994 Abdomen abdominal exam Contour: rounded 05/07/2014 None Full Exam - General 1994 Musculoskeletal digits and nails Overall: no clubbing 05/07/2014 None Full Exam - General 1994 Musculoskeletal digits and nails Overall: digits benign 05/07/2014 None Full Exam - General 1994 Musculoskeletal spine, ribs and pelvis Overall: spine benign 05/07/2014 None Full Exam - General 1994 Musculoskeletal spine, ribs and pelvis Overall: sacroiliac joint benign 05/07/2014 None Full Exam - General 1994 Musculoskeletal spine, ribs and pelvis Overall: good posture 05/07/2014 None Full Exam - General 1994 Musculoskeletal gait and station Overall: normal gait 05/07/2014 None Full Exam - General 1994 Musculoskeletal gait and station Overall: normal station 05/07/2014 None Full Exam - General 1994 Neurologic gait Overall: no ataxia, no unsteadiness 05/07/2014 None Full Exam - General 1994 Psychiatric orientation/consciousness Overall: oriented to person, place and time 05/07/2014 None Full Exam - General 1994 Psychiatric mood and affect Overall: normal mood and affect 05/07/2014 None Full Exam - General 1994 Constitutional general appearance Overall: well developed 04/21/2014 None Full Exam - General 1994 Constitutional general appearance Overall: well nourished 04/21/2014 None Full Exam - General 1994 Eyes pupils and irises Overall: pupils equal, round, reactive to light and accomodation 04/21/2014 None Full Exam - General 1994 Ears/Nose/Throat otoscopic exam Overall: external auditory canals clear 04/21/2014 None Full Exam - General 1994 Ears/Nose/Throat otoscopic exam Overall: tympanic membranes clear 04/21/2014 None Full Exam - General 1994 Ears/Nose/Throat oral cavity/pharynx/larynx Overall: oropharyngeal mucosa clear 04/21/2014 None Full Exam - General 1994 Ears/Nose/Throat oral cavity/pharynx/larynx Overall: no masses 04/21/2014 None Full Exam - General 1994 Respiratory auscultation Overall: breath sounds clear bilaterally 04/21/2014 None Full Exam - General 1994 Respiratory respiratory effort/rhythm Overall: no retractions 04/21/2014 None Full Exam - General 1994 Respiratory respiratory effort/rhythm Overall: normal rate 04/21/2014 None Full Exam - General 1994 Cardiovascular auscultation of heart Overall: regular rate 04/21/2014 None Full Exam - General 1994 Cardiovascular auscultation of heart Overall: normal heart sounds 04/21/2014 None Full Exam - General 1994 Cardiovascular auscultation of heart Overall: no murmurs 04/21/2014 None Full Exam - General 1994 Abdomen abdominal exam Overall: no tenderness 04/21/2014 None Full Exam - General 1994 Abdomen abdominal exam Overall: normal bowel sounds 04/21/2014 None Full Exam - General 1994 Abdomen abdominal exam Contour: rounded 04/21/2014 None Full Exam - General 1994 Musculoskeletal digits and nails Overall: no clubbing 04/21/2014 None Full Exam - General 1994 Musculoskeletal digits and nails Overall: digits benign 04/21/2014 None Full Exam - General 1994 Musculoskeletal spine, ribs and pelvis Overall: spine benign 04/21/2014 None Full Exam - General 1994 Musculoskeletal spine, ribs and pelvis Overall: sacroiliac joint benign 04/21/2014 None Full Exam - General 1994 Musculoskeletal spine, ribs and pelvis Overall: good posture 04/21/2014 None Full Exam - General 1994 Musculoskeletal gait and station Overall: normal gait 04/21/2014 None Full Exam - General 1994 Musculoskeletal gait and station Overall: normal station 04/21/2014 None Full Exam - General 1994 Neurologic gait Overall: no ataxia, no unsteadiness 04/21/2014 None Full Exam - General 1994 Psychiatric orientation/consciousness Overall: oriented to person, place and time 04/21/2014 None Full Exam - General 1994 Psychiatric mood and affect Overall: normal mood and affect 04/21/2014 None Full Exam - General 1994 Constitutional general appearance Hygiene/Attention to Grooming: good hygiene 04/21/2014 None Full Exam - General 1994 Constitutional general appearance Evidence of Distress: mild distress 04/21/2014 - pt unsteady with walking - Full Exam - General 1994 Ears/Nose/Throat oral cavity/pharynx/larynx Overall: oral mucosa clear 04/21/2014 but dry Full Exam - General 1994 Cardiovascular extremities Edema present: pitting 04/21/2014 None Full Exam - General 1994 Cardiovascular extremities Edema present: severity 1+ - 4+: 2+ 04/21/2014 None Full Exam - General 1994 Cardiovascular extremities Edema present: bilateral 04/21/2014 None Full Exam - General 1994 Integument inspection of skin Overall: few scattered moles, no gross abnormalities 04/21/2014 None Full Exam - General 1994 Constitutional general appearance Overall: well developed 02/14/2014 None Full Exam - General 1994 Constitutional general appearance Overall: in no acute distress 02/14/2014 None Full Exam - General 1994 Constitutional general appearance Overall: well nourished 02/14/2014 None Full Exam - General 1994 Eyes pupils and irises Overall: pupils equal, round, reactive to light and accomodation 02/14/2014 None Full Exam - General 1994 Ears/Nose/Throat otoscopic exam Overall: external auditory canals clear 02/14/2014 None Full Exam - General 1994 Ears/Nose/Throat otoscopic exam Overall: tympanic membranes clear 02/14/2014 None Full Exam - General 1994 Ears/Nose/Throat oral cavity/pharynx/larynx Overall: oral mucosa clear 02/14/2014 None Full Exam - General 1994 Ears/Nose/Throat oral cavity/pharynx/larynx Overall: oropharyngeal mucosa clear 02/14/2014 None Full Exam - General 1994 Ears/Nose/Throat oral cavity/pharynx/larynx Overall: no masses 02/14/2014 None Full Exam - General 1994 Respiratory auscultation Overall: breath sounds clear bilaterally 02/14/2014 None Full Exam - General 1994 Respiratory respiratory effort/rhythm Overall: no retractions 02/14/2014 None Full Exam - General 1994 Respiratory respiratory effort/rhythm Overall: normal rate 02/14/2014 None Full Exam - General 1994 Cardiovascular auscultation of heart Overall: regular rate 02/14/2014 None Full Exam - General 1994 Cardiovascular auscultation of heart Overall: normal heart sounds 02/14/2014 None Full Exam - General 1994 Cardiovascular auscultation of heart Overall: no murmurs 02/14/2014 None Full Exam - General 1994 Neurologic gait Overall: no ataxia, no unsteadiness 02/14/2014 None Full Exam - General 1994 Psychiatric orientation/consciousness Overall: oriented to person, place and time 02/14/2014 None Full Exam - General 1994 Psychiatric mood and affect Overall: normal mood and affect 02/14/2014 None Full Exam - General 1994 Integument inspection of skin Dermatitis: erythema 02/14/2014 anterior left lower leg/t ibia, healing bite jeff. Full Exam - Cardiology Respiratory auscultation Overall: breath sounds clear bilaterally 01/16/2014 None Full Exam - Cardiology Cardiovascular auscultation of heart Overall: regular rate 01/16/2014 None Full Exam - Cardiology Constitutional general appearance Overall: well nourished 01/16/2014 None Full Exam - Cardiology Constitutional general appearance Overall: well developed 01/16/2014 None Full Exam - Cardiology Constitutional general appearance Overall: in no acute distress 01/16/2014 None Full Exam - Cardiology Psychiatric orientation/consciousness Overall: oriented to person, place and time 01/16/2014 None Full Exam - Cardiology Psychiatric mood and affect Overall: normal mood and affect 01/16/2014 None Full Exam - Cardiology Musculoskeletal gait and station Overall: normal gait 01/16/2014 None Full Exam - Cardiology Musculoskeletal gait and station Overall: normal station 01/16/2014 - upper extremity with t enderness to palpation over the anterior head of biceps bilaterally Full Exam - General 1994 Constitutional general appearance Overall: well developed 11/14/2013 None Full Exam - General 1994 Constitutional general appearance Overall: in no acute distress 11/14/2013 None Full Exam - General 1994 Constitutional general appearance Overall: well nourished 11/14/2013 None Full Exam - General 1994 Eyes pupils and irises Overall: pupils equal, round, reactive to light and accomodation 11/14/2013 None Full Exam - General 1994 Ears/Nose/Throat otoscopic exam Overall: external auditory canals clear 11/14/2013 None Full Exam - General 1994 Ears/Nose/Throat otoscopic exam Overall: tympanic membranes clear 11/14/2013 None Full Exam - General 1994 Ears/Nose/Throat oral cavity/pharynx/larynx Overall: oral mucosa clear 11/14/2013 None Full Exam - General 1994 Ears/Nose/Throat oral cavity/pharynx/larynx Overall: oropharyngeal mucosa clear 11/14/2013 None Full Exam - General 1994 Ears/Nose/Throat oral cavity/pharynx/larynx Overall: no masses 11/14/2013 None Full Exam - General 1994 Respiratory auscultation Overall: breath sounds clear bilaterally 11/14/2013 None Full Exam - General 1994 Respiratory respiratory effort/rhythm Overall: no retractions 11/14/2013 None Full Exam - General 1994 Respiratory respiratory effort/rhythm Overall: normal rate 11/14/2013 None Full Exam - General 1994 Cardiovascular auscultation of heart Overall: regular rate 11/14/2013 None Full Exam - General 1994 Cardiovascular auscultation of heart Overall: normal heart sounds 11/14/2013 None Full Exam - General 1994 Cardiovascular auscultation of heart Overall: no murmurs 11/14/2013 None Full Exam - General 1994 Abdomen abdominal exam Overall: no tenderness 11/14/2013 None Full Exam - General 1994 Abdomen abdominal exam Overall: normal bowel sounds 11/14/2013 None Full Exam - General 1994 Abdomen abdominal exam Contour: rounded 11/14/2013 None Full Exam - General 1994 Musculoskeletal digits and nails Overall: no clubbing 11/14/2013 None Full Exam - General 1994 Musculoskeletal digits and nails Overall: digits benign 11/14/2013 None Full Exam - General 1994 Musculoskeletal spine, ribs and pelvis Overall: spine benign 11/14/2013 None Full Exam - General 1994 Musculoskeletal spine, ribs and pelvis Overall: sacroiliac joint benign 11/14/2013 None Full Exam - General 1994 Musculoskeletal spine, ribs and pelvis Overall: good posture 11/14/2013 None Full Exam - General 1994 Musculoskeletal gait and station Overall: normal gait 11/14/2013 None Full Exam - General 1994 Musculoskeletal gait and station Overall: normal station 11/14/2013 None Full Exam - General 1994 Neurologic gait Overall: no ataxia, no unsteadiness 11/14/2013 None Full Exam - General 1994 Psychiatric orientation/consciousness Overall: oriented to person, place and time 11/14/2013 None Full Exam - General 1994 Psychiatric mood and affect Overall: normal mood and affect 11/14/2013 None Full Exam - General 1994 Constitutional general appearance Overall: well developed 10/24/2013 None Full Exam - General 1994 Constitutional general appearance Overall: in no acute distress 10/24/2013 None Full Exam - General 1994 Constitutional general appearance Overall: well nourished 10/24/2013 None Full Exam - General 1994 Eyes pupils and irises Overall: pupils equal, round, reactive to light and accomodation 10/24/2013 None Full Exam - General 1994 Ears/Nose/Throat otoscopic exam Overall: external auditory canals clear 10/24/2013 None Full Exam - General 1994 Ears/Nose/Throat otoscopic exam Overall: tympanic membranes clear 10/24/2013 None Full Exam - General 1994 Ears/Nose/Throat oral cavity/pharynx/larynx Overall: oral mucosa clear 10/24/2013 None Full Exam - General 1994 Ears/Nose/Throat oral cavity/pharynx/larynx Overall: oropharyngeal mucosa clear 10/24/2013 None Full Exam - General 1994 Ears/Nose/Throat oral cavity/pharynx/larynx Overall: no masses 10/24/2013 None Full Exam - General 1994 Respiratory auscultation Overall: breath sounds clear bilaterally 10/24/2013 None Full Exam - General 1994 Respiratory respiratory effort/rhythm Overall: no retractions 10/24/2013 None Full Exam - General 1994 Respiratory respiratory effort/rhythm Overall: normal rate 10/24/2013 None Full Exam - General 1994 Cardiovascular auscultation of heart Overall: regular rate 10/24/2013 None Full Exam - General 1994 Cardiovascular auscultation of heart Overall: normal heart sounds 10/24/2013 None Full Exam - General 1994 Cardiovascular auscultation of heart Overall: no murmurs 10/24/2013 None Full Exam - General 1994 Abdomen abdominal exam Overall: no tenderness 10/24/2013 None Full Exam - General 1995 Abdomen abdominal exam Overall: normal bowel sounds 10/24/2013 None Full Exam - General 1994 Abdomen abdominal exam Contour: rounded 10/24/2013 None Full Exam - General 1994 Musculoskeletal digits and nails Overall: no clubbing 10/24/2013 None Full Exam - General 1995 Musculoskeletal digits and nails Overall: digits benign 10/24/2013 None Full Exam - General 1994 Musculoskeletal spine, ribs and pelvis Overall: spine benign 10/24/2013 None Full Exam - General 1994 Musculoskeletal spine, ribs and pelvis Overall: sacroiliac joint benign 10/24/2013 None Full Exam - General 1994 Musculoskeletal spine, ribs and pelvis Overall: good posture 10/24/2013 None Full Exam - General 1994 Musculoskeletal gait and station Overall: normal gait 10/24/2013 None Full Exam - General 1994 Musculoskeletal gait and station Overall: normal station 10/24/2013 None Full Exam - General 1994 Neurologic gait Overall: no ataxia, no unsteadiness 10/24/2013 None Full Exam - General 1994 Psychiatric orientation/consciousness Overall: oriented to person, place and time 10/24/2013 None Full Exam - General 1994 Psychiatric mood and affect Overall: normal mood and affect 10/24/2013 None Full Exam - General 1994 Constitutional general appearance Overall: well developed 06/24/2013 None Full Exam - General 1994 Cardiovascular auscultation of heart Overall: no murmurs 06/24/2013 None Full Exam - General 1994 Abdomen abdominal exam Overall: no tenderness 06/24/2013 None Full Exam - General 1994 Abdomen abdominal exam Overall: normal bowel sounds 06/24/2013 None Full Exam - General 1994 Abdomen abdominal exam Contour: rounded 06/24/2013 None Full Exam - General 1994 Musculoskeletal digits and nails Overall: no clubbing 06/24/2013 None Full Exam - General 1994 Musculoskeletal digits and nails Overall: digits benign 06/24/2013 None Full Exam - General 1994 Musculoskeletal spine, ribs and pelvis Overall: spine benign 06/24/2013 None Full Exam - General 1994 Musculoskeletal spine, ribs and pelvis Overall: sacroiliac joint benign 06/24/2013 None Full Exam - General 1994 Musculoskeletal spine, ribs and pelvis Overall: good posture 06/24/2013 None Full Exam - General 1994 Musculoskeletal gait and station Overall: normal gait 06/24/2013 None Full Exam - General 1994 Musculoskeletal gait and station Overall: normal station 06/24/2013 None Full Exam - General 1994 Neurologic gait Overall: no ataxia, no unsteadiness 06/24/2013 None Full Exam - General 1994 Psychiatric orientation/consciousness Overall: oriented to person, place and time 06/24/2013 None Full Exam - General 1994 Psychiatric mood and affect Overall: normal mood and affect 06/24/2013 None Full Exam - General 1995 Constitutional general appearance Overall: in no acute distress 06/24/2013 None Full Exam - General 1995 Constitutional general appearance Overall: well nourished 06/24/2013 None Full Exam - General 1994 Eyes pupils and irises Overall: pupils equal, round, reactive to light and accomodation 06/24/2013 None Full Exam - General 1995 Ears/Nose/Throat otoscopic exam Overall: external auditory canals clear 06/24/2013 None Full Exam - General 1995 Ears/Nose/Throat otoscopic exam Overall: tympanic membranes clear 06/24/2013 None Full Exam - General 1995 Ears/Nose/Throat oral cavity/pharynx/larynx Overall: oral mucosa clear 06/24/2013 None Full Exam - General 1995 Ears/Nose/Throat oral cavity/pharynx/larynx Overall: oropharyngeal mucosa clear 06/24/2013 None Full Exam - General 1995 Ears/Nose/Throat oral cavity/pharynx/larynx Overall: no masses 06/24/2013 None Full Exam - General 1994 Respiratory auscultation Overall: breath sounds clear bilaterally 06/24/2013 None Full Exam - General 1994 Respiratory respiratory effort/rhythm Overall: no retractions 06/24/2013 None Full Exam - General 1994 Respiratory respiratory effort/rhythm Overall: normal rate 06/24/2013 None Full Exam - General 1994 Cardiovascular auscultation of heart Overall: regular rate 06/24/2013 None Full Exam - General 1994 Cardiovascular auscultation of heart Overall: normal heart sounds 06/24/2013 None Full Exam - General 1994 Constitutional general appearance Overall: well developed 06/05/2013 None Full Exam - General 1994 Constitutional general appearance Overall: in no acute distress 06/05/2013 None Full Exam - General 1994 Constitutional general appearance Overall: well nourished 06/05/2013 None Full Exam - General 1994 Eyes pupils and irises Overall: pupils equal, round, reactive to light and accomodation 06/05/2013 None Full Exam - General 1994 Ears/Nose/Throat otoscopic exam Overall: external auditory canals clear 06/05/2013 None Full Exam - General 1995 Ears/Nose/Throat otoscopic exam Overall: tympanic membranes clear 06/05/2013 None Full Exam - General 1995 Ears/Nose/Throat oral cavity/pharynx/larynx Overall: oral mucosa clear 06/05/2013 None Full Exam - General 1995 Ears/Nose/Throat oral cavity/pharynx/larynx Overall: oropharyngeal mucosa clear 06/05/2013 None Full Exam - General 1994 Ears/Nose/Throat oral cavity/pharynx/larynx Overall: no masses 06/05/2013 None Full Exam - General 1994 Respiratory auscultation Overall: breath sounds clear bilaterally 06/05/2013 None Full Exam - General 1994 Respiratory respiratory effort/rhythm Overall: no retractions 06/05/2013 None Full Exam - General 1994 Respiratory respiratory effort/rhythm Overall: normal rate 06/05/2013 None Full Exam - General 1994 Cardiovascular auscultation of heart Overall: regular rate 06/05/2013 None Full Exam - General 1994 Cardiovascular auscultation of heart Overall: normal heart sounds 06/05/2013 None Full Exam - General 1994 Cardiovascular auscultation of heart Overall: no murmurs 06/05/2013 None Full Exam - General 1994 Abdomen abdominal exam Overall: no tenderness 06/05/2013 None Full Exam - General 1994 Abdomen abdominal exam Overall: normal bowel sounds 06/05/2013 None Full Exam - General 1994 Abdomen abdominal exam Contour: rounded 06/05/2013 None Full Exam - General 1994 Musculoskeletal digits and nails Overall: no clubbing 06/05/2013 None Full Exam - General 1994 Musculoskeletal digits and nails Overall: digits benign 06/05/2013 None Full Exam - General 1994 Musculoskeletal spine, ribs and pelvis Overall: spine benign 06/05/2013 None Full Exam - General 1994 Musculoskeletal spine, ribs and pelvis Overall: sacroiliac joint benign 06/05/2013 None Full Exam - General 1994 Musculoskeletal spine, ribs and pelvis Overall: good posture 06/05/2013 None Full Exam - General 1994 Musculoskeletal gait and station Overall: normal gait 06/05/2013 None Full Exam - General 1994 Musculoskeletal gait and station Overall: normal station 06/05/2013 None Full Exam - General 1994 Neurologic gait Overall: no ataxia, no unsteadiness 06/05/2013 None Full Exam - General 1994 Psychiatric orientation/consciousness Overall: oriented to person, place and time 06/05/2013 None Full Exam - General 1994 Psychiatric mood and affect Overall: normal mood and affect 06/05/2013 None Full Exam - General 1995 Ears/Nose/Throat oral cavity/pharynx/larynx Overall: oropharyngeal mucosa clear 04/01/2013 None Full Exam - General 1995 Ears/Nose/Throat oral cavity/pharynx/larynx Overall: no masses 04/01/2013 None Full Exam - General 1995 Respiratory auscultation Overall: breath sounds clear bilaterally 04/01/2013 None Full Exam - General 1994 Respiratory respiratory effort/rhythm Overall: no retractions 04/01/2013 None Full Exam - General 1995 Respiratory respiratory effort/rhythm Overall: normal rate 04/01/2013 None Full Exam - General 1995 Cardiovascular auscultation of heart Overall: regular rate 04/01/2013 None Full Exam - General 1995 Cardiovascular auscultation of heart Overall: normal heart sounds 04/01/2013 None Full Exam - General 1994 Cardiovascular auscultation of heart Overall: no murmurs 04/01/2013 None Full Exam - General 1994 Abdomen abdominal exam Overall: no tenderness 04/01/2013 None Full Exam - General 1994 Abdomen abdominal exam Overall: normal bowel sounds 04/01/2013 None Full Exam - General 1994 Abdomen abdominal exam Contour: rounded 04/01/2013 None Full Exam - General 1994 Musculoskeletal digits and nails Overall: no clubbing 04/01/2013 None Full Exam - General 1994 Musculoskeletal digits and nails Overall: digits benign 04/01/2013 None Full Exam - General 1994 Musculoskeletal spine, ribs and pelvis Overall: spine benign 04/01/2013 None Full Exam - General 1994 Constitutional general appearance Overall: well developed 04/01/2013 None Full Exam - General 1994 Constitutional general appearance Overall: in no acute distress 04/01/2013 None Full Exam - General 1994 Constitutional general appearance Overall: well nourished 04/01/2013 None Full Exam - General 1994 Eyes pupils and irises Overall: pupils equal, round, reactive to light and accomodation 04/01/2013 None Full Exam - General 1994 Ears/Nose/Throat otoscopic exam Overall: external auditory canals clear 04/01/2013 None Full Exam - General 1994 Ears/Nose/Throat otoscopic exam Overall: tympanic membranes clear 04/01/2013 None Full Exam - General 1994 Ears/Nose/Throat oral cavity/pharynx/larynx Overall: oral mucosa clear 04/01/2013 None Full Exam - General 1994 Musculoskeletal spine, ribs and pelvis Overall: sacroiliac joint benign 04/01/2013 None Full Exam - General 1994 Musculoskeletal spine, ribs and pelvis Overall: good posture 04/01/2013 None Full Exam - General 1994 Musculoskeletal gait and station Overall: normal gait 04/01/2013 None Full Exam - General 1994 Musculoskeletal gait and station Overall: normal station 04/01/2013 None Full Exam - General 1994 Neurologic gait Overall: no ataxia, no unsteadiness 04/01/2013 None Full Exam - General 1994 Psychiatric orientation/consciousness Overall: oriented to person, place and time 04/01/2013 None Full Exam - General 1994 Psychiatric mood and affect Overall: normal mood and affect 04/01/2013 None Full Exam - General 1994 Constitutional general appearance Overall: well developed 01/29/2013 None Full Exam - General 1994 Constitutional general appearance Overall: in no acute distress 01/29/2013 None Full Exam - General 1994 Constitutional general appearance Overall: well nourished 01/29/2013 None Full Exam - General 1994 Eyes pupils and irises Overall: pupils equal, round, reactive to light and accomodation 01/29/2013 None Full Exam - General 1994 Ears/Nose/Throat otoscopic exam Overall: external auditory canals clear 01/29/2013 None Full Exam - General 1994 Ears/Nose/Throat otoscopic exam Overall: tympanic membranes clear 01/29/2013 None Full Exam - General 1994 Ears/Nose/Throat oral cavity/pharynx/larynx Overall: oral mucosa clear 01/29/2013 None Full Exam - General 1994 Ears/Nose/Throat oral cavity/pharynx/larynx Overall: oropharyngeal mucosa clear 01/29/2013 None Full Exam - General 1994 Ears/Nose/Throat oral cavity/pharynx/larynx Overall: no masses 01/29/2013 None Full Exam - General 1994 Respiratory auscultation Overall: breath sounds clear bilaterally 01/29/2013 None Full Exam - General 1994 Respiratory respiratory effort/rhythm Overall: no retractions 01/29/2013 None Full Exam - General 1994 Respiratory respiratory effort/rhythm Overall: normal rate 01/29/2013 None Full Exam - General 1994 Cardiovascular auscultation of heart Overall: regular rate 01/29/2013 None Full Exam - General 1994 Cardiovascular auscultation of heart Overall: normal heart sounds 01/29/2013 None Full Exam - General 1994 Cardiovascular auscultation of heart Overall: no murmurs 01/29/2013 None Full Exam - General 1995 Abdomen abdominal exam Overall: no tenderness 01/29/2013 None Full Exam - General 1995 Abdomen abdominal exam Overall: normal bowel sounds 01/29/2013 None Full Exam - General 1995 Abdomen abdominal exam Contour: rounded 01/29/2013 None Full Exam - General 1995 Musculoskeletal digits and nails Overall: no clubbing 01/29/2013 None Full Exam - General 1995 Musculoskeletal digits and nails Overall: digits benign 01/29/2013 None Full Exam - General 1995 Musculoskeletal spine, ribs and pelvis Overall: spine benign 01/29/2013 None Full Exam - General 1995 Musculoskeletal spine, ribs and pelvis Overall: sacroiliac joint benign 01/29/2013 None Full Exam - General 1995 Musculoskeletal spine, ribs and pelvis Overall: good posture 01/29/2013 None Full Exam - General 1994 Musculoskeletal gait and station Overall: normal gait 01/29/2013 None Full Exam - General 1994 Musculoskeletal gait and station Overall: normal station 01/29/2013 None Full Exam - General 1994 Neurologic gait Overall: no ataxia, no unsteadiness 01/29/2013 None Full Exam - General 1994 Psychiatric orientation/consciousness Overall: oriented to person, place and time 01/29/2013 None Full Exam - General 1994 Psychiatric mood and affect Overall: normal mood and affect 01/29/2013 None Full Exam - General 1994 Constitutional general appearance Overall: well developed 12/25/2012 None Full Exam - General 1994 Constitutional general appearance Overall: in no acute distress 12/25/2012 None Full Exam - General 1994 Constitutional general appearance Overall: well nourished 12/25/2012 None Full Exam - General 1994 Eyes pupils and irises Overall: pupils equal, round, reactive to light and accomodation 12/25/2012 None Full Exam - General 1994 Ears/Nose/Throat otoscopic exam Overall: external auditory canals clear 12/25/2012 None Full Exam - General 1994 Ears/Nose/Throat otoscopic exam Overall: tympanic membranes clear 12/25/2012 None Full Exam - General 1994 Ears/Nose/Throat oral cavity/pharynx/larynx Overall: oral mucosa clear 12/25/2012 None Full Exam - General 1995 Ears/Nose/Throat oral cavity/pharynx/larynx Overall: oropharyngeal mucosa clear 12/25/2012 None Full Exam - General 1994 Ears/Nose/Throat oral cavity/pharynx/larynx Overall: no masses 12/25/2012 None Full Exam - General 1995 Respiratory auscultation Overall: breath sounds clear bilaterally 12/25/2012 None Full Exam - General 1995 Respiratory respiratory effort/rhythm Overall: no retractions 12/25/2012 None Full Exam - General 1995 Respiratory respiratory effort/rhythm Overall: normal rate 12/25/2012 None Full Exam - General 1995 Cardiovascular auscultation of heart Overall: regular rate 12/25/2012 None Full Exam - General 1995 Cardiovascular auscultation of heart Overall: normal heart sounds 12/25/2012 None Full Exam - General 1995 Cardiovascular auscultation of heart Overall: no murmurs 12/25/2012 None Full Exam - General 1995 Abdomen abdominal exam Overall: no tenderness 12/25/2012 None Full Exam - General 1995 Abdomen abdominal exam Overall: normal bowel sounds 12/25/2012 None Full Exam - General 1995 Abdomen abdominal exam Contour: rounded 12/25/2012 None Full Exam - General 1995 Musculoskeletal digits and nails Overall: no clubbing 12/25/2012 None Full Exam - General 1995 Musculoskeletal digits and nails Overall: digits benign 12/25/2012 None Full Exam - General 1995 Musculoskeletal spine, ribs and pelvis Overall: spine benign 12/25/2012 None Full Exam - General 1995 Musculoskeletal spine, ribs and pelvis Overall: sacroiliac joint benign 12/25/2012 None Full Exam - General 1995 Musculoskeletal spine, ribs and pelvis Overall: good posture 12/25/2012 None Full Exam - General 1994 Musculoskeletal gait and station Overall: normal gait 12/25/2012 None Full Exam - General 1994 Musculoskeletal gait and station Overall: normal station 12/25/2012 None Full Exam - General 1994 Neurologic gait Overall: no ataxia, no unsteadiness 12/25/2012 None Full Exam - General 1994 Psychiatric orientation/consciousness Overall: oriented to person, place and time 12/25/2012 None Full Exam - General 1994 Psychiatric mood and affect Overall: normal mood and affect 12/25/2012 None Full Exam - General 1994 Constitutional general appearance Overall: well developed 10/01/2012 None Full Exam - General 1994 Constitutional general appearance Overall: in no acute distress 10/01/2012 None Full Exam - General 1994 Constitutional general appearance Overall: well nourished 10/01/2012 None Full Exam - General 1994 Eyes pupils and irises Overall: pupils equal, round, reactive to light and accomodation 10/01/2012 None Full Exam - General 1995 Ears/Nose/Throat otoscopic exam Overall: external auditory canals clear 10/01/2012 None Full Exam - General 1995 Ears/Nose/Throat otoscopic exam Overall: tympanic membranes clear 10/01/2012 None Full Exam - General 1995 Ears/Nose/Throat oral cavity/pharynx/larynx Overall: oral mucosa clear 10/01/2012 None Full Exam - General 1995 Ears/Nose/Throat oral cavity/pharynx/larynx Overall: oropharyngeal mucosa clear 10/01/2012 None Full Exam - General 1995 Ears/Nose/Throat oral cavity/pharynx/larynx Overall: no masses 10/01/2012 None Full Exam - General 1994 Respiratory auscultation Overall: breath sounds clear bilaterally 10/01/2012 None Full Exam - General 1994 Respiratory respiratory effort/rhythm Overall: no retractions 10/01/2012 None Full Exam - General 1994 Respiratory respiratory effort/rhythm Overall: normal rate 10/01/2012 None Full Exam - General 1994 Cardiovascular auscultation of heart Overall: regular rate 10/01/2012 None Full Exam - General 1994 Cardiovascular auscultation of heart Overall: normal heart sounds 10/01/2012 None Full Exam - General 1994 Cardiovascular auscultation of heart Overall: no murmurs 10/01/2012 None Full Exam - General 1994 Abdomen abdominal exam Overall: no tenderness 10/01/2012 None Full Exam - General 1994 Abdomen abdominal exam Overall: normal bowel sounds 10/01/2012 None Full Exam - General 1994 Abdomen abdominal exam Contour: rounded 10/01/2012 None Full Exam - General 1994 Musculoskeletal digits and nails Overall: no clubbing 10/01/2012 None Full Exam - General 1994 Musculoskeletal digits and nails Overall: digits benign 10/01/2012 None Full Exam - General 1994 Musculoskeletal spine, ribs and pelvis Overall: spine benign 10/01/2012 None Full Exam - General 1994 Musculoskeletal spine, ribs and pelvis Overall: sacroiliac joint benign 10/01/2012 None Full Exam - General 1994 Musculoskeletal spine, ribs and pelvis Overall: good posture 10/01/2012 None Full Exam - General 1994 Musculoskeletal gait and station Overall: normal gait 10/01/2012 None Full Exam - General 1994 Musculoskeletal gait and station Overall: normal station 10/01/2012 None Full Exam - General 1994 Neurologic gait Overall: no ataxia, no unsteadiness 10/01/2012 None Full Exam - General 1994 Psychiatric orientation/consciousness Overall: oriented to person, place and time 10/01/2012 None Full Exam - General 1995 Psychiatric mood and affect Overall: normal mood and affect 10/01/2012 None Full Exam - General 1995 Respiratory auscultation Lower lung field: diminished 06/29/2012 None Full Exam - General 1995 Respiratory respiratory effort/rhythm Overall: no retractions 06/29/2012 None Full Exam - General 1995 Respiratory respiratory effort/rhythm Overall: normal rate 06/29/2012 None Full Exam - General 1995 Cardiovascular auscultation of heart Overall: regular rate 06/29/2012 None Full Exam - General 1995 Cardiovascular auscultation of heart Overall: normal heart sounds 06/29/2012 None Full Exam - General 1995 Cardiovascular auscultation of heart Overall: no murmurs 06/29/2012 None Full Exam - General 1995 Musculoskeletal digits and nails Overall: no clubbing 06/29/2012 None Full Exam - General 1995 Musculoskeletal digits and nails Overall: digits benign 06/29/2012 None Full Exam - General 1994 Musculoskeletal spine, ribs and pelvis Overall: good posture 06/29/2012 None Full Exam - General 1995 Musculoskeletal gait and station Overall: normal gait 06/29/2012 None Full Exam - General 1995 Musculoskeletal gait and station Overall: normal station 06/29/2012 None Full Exam - General 1994 Psychiatric orientation/consciousness Overall: oriented to person, place and time 06/29/2012 None Full Exam - General 1994 Psychiatric mood and affect Overall: normal mood and affect 06/29/2012 None Full Exam - General 1994 Respiratory auscultation Upper lung field: a normal exam 06/29/2012 None Full Exam - General 1994 Constitutional general appearance Overall: well developed 06/29/2012 None Full Exam - General 1994 Constitutional general appearance Overall: in no acute distress 06/29/2012 None Full Exam - General 1994 Constitutional general appearance Overall: well nourished 06/29/2012 None Full Exam - General 1994 Eyes pupils and irises Overall: pupils equal, round, reactive to light and accomodation 06/29/2012 None Full Exam - General 1994 Ears/Nose/Throat otoscopic exam Overall: external auditory canals clear 06/29/2012 None Full Exam - General 1995 Ears/Nose/Throat otoscopic exam Tympanic membrane: erythematous 06/29/2012 None Full Exam - General 1995 Ears/Nose/Throat otoscopic exam Tympanic membrane: bulging 06/29/2012 None Full Exam - General 1995 Ears/Nose/Throat oral cavity/pharynx/larynx Overall: oral mucosa clear 06/29/2012 None Full Exam - General 1995 Ears/Nose/Throat oral cavity/pharynx/larynx Overall: no masses 06/29/2012 None Full Exam - General 1995 Ears/Nose/Throat oral cavity/pharynx/larynx Posterior Pharynx: purulent post nasal drainage 06/29/2012 None Full Exam - General 1994 Constitutional general appearance Overall: well developed 05/28/2012 None Full Exam - General 1994 Constitutional general appearance Overall: in no acute distress 05/28/2012 None Full Exam - General 1994 Constitutional general appearance Overall: well nourished 05/28/2012 None Full Exam - General 1994 Eyes pupils and irises Overall: pupils equal, round, reactive to light and accomodation 05/28/2012 None Full Exam - General 1994 Ears/Nose/Throat otoscopic exam Overall: external auditory canals clear 05/28/2012 None Full Exam - General 1994 Ears/Nose/Throat oral cavity/pharynx/larynx Overall: oral mucosa clear 05/28/2012 None Full Exam - General 1995 Ears/Nose/Throat oral cavity/pharynx/larynx Overall: no masses 05/28/2012 None Full Exam - General 1994 Respiratory respiratory effort/rhythm Overall: no retractions 05/28/2012 None Full Exam - General 1994 Respiratory respiratory effort/rhythm Overall: normal rate 05/28/2012 None Full Exam - General 1994 Cardiovascular auscultation of heart Overall: regular rate 05/28/2012 None Full Exam - General 1994 Cardiovascular auscultation of heart Overall: normal heart sounds 05/28/2012 None Full Exam - General 1994 Cardiovascular auscultation of heart Overall: no murmurs 05/28/2012 None Full Exam - General 1994 Musculoskeletal digits and nails Overall: no clubbing 05/28/2012 None Full Exam - General 1994 Musculoskeletal digits and nails Overall: digits benign 05/28/2012 None Full Exam - General 1994 Musculoskeletal spine, ribs and pelvis Overall: good posture 05/28/2012 None Full Exam - General 1994 Musculoskeletal gait and station Overall: normal gait 05/28/2012 None Full Exam - General 1994 Musculoskeletal gait and station Overall: normal station 05/28/2012 None Full Exam - General 1994 Psychiatric orientation/consciousness Overall: oriented to person, place and time 05/28/2012 None Full Exam - General 1994 Psychiatric mood and affect Overall: normal mood and affect 05/28/2012 None Full Exam - General 1994 Ears/Nose/Throat otoscopic exam Tympanic membrane: erythematous 05/28/2012 None Full Exam - General 1995 Ears/Nose/Throat otoscopic exam Tympanic membrane: bulging 05/28/2012 None Full Exam - General 1994 Ears/Nose/Throat oral cavity/pharynx/larynx Posterior Pharynx: purulent post nasal drainage 05/28/2012 None Full Exam - General 1994 Respiratory auscultation Upper lung field: bronchial 05/28/2012 None Full Exam - General 1994 Respiratory auscultation Upper lung field: rhonchi 05/28/2012 None Full Exam - General 1994 Respiratory auscultation Lower lung field: diminished 05/28/2012 None Full Exam - General 1994 Constitutional general appearance Overall: well nourished 04/02/2012 None Full Exam - General 1994 Constitutional general appearance Overall: well developed 04/02/2012 None Full Exam - General 1994 Constitutional general appearance Overall: in no acute distress 04/02/2012 None Full Exam - General 1994 Eyes pupils and irises Overall: pupils equal, round, reactive to light and accomodation 04/02/2012 None Full Exam - General 1994 Respiratory auscultation Overall: breath sounds clear bilaterally 04/02/2012 None Full Exam - General 1994 Respiratory respiratory effort/rhythm Overall: no retractions 04/02/2012 None Full Exam - General 1994 Respiratory respiratory effort/rhythm Overall: normal rate 04/02/2012 None Full Exam - General 1994 Cardiovascular auscultation of heart Overall: regular rate 04/02/2012 None Full Exam - General 1994 Cardiovascular auscultation of heart Overall: normal heart sounds 04/02/2012 None Full Exam - General 1994 Cardiovascular auscultation of heart Overall: no murmurs 04/02/2012 None Full Exam - General 1994 Abdomen abdominal exam Overall: no tenderness 04/02/2012 None Full Exam - General 1994 Abdomen abdominal exam Overall: normal bowel sounds 04/02/2012 None Full Exam - General 1994 Abdomen abdominal exam Contour: rounded 04/02/2012 None Full Exam - General 1994 Neurologic gait Overall: no ataxia, no unsteadiness 04/02/2012 None Full Exam - General 1994 Psychiatric orientation/consciousness Overall: oriented to person, place and time 04/02/2012 None Full Exam - General 1994 Psychiatric mood and affect Overall: normal mood and affect 04/02/2012 None Full Exam - General 1994 Ears/Nose/Throat otoscopic exam Overall: tympanic membranes clear 04/02/2012 None Full Exam - General 1995 Ears/Nose/Throat otoscopic exam Overall: external auditory canals clear 04/02/2012 None Full Exam - General 1995 Ears/Nose/Throat oral cavity/pharynx/larynx Overall: oropharyngeal mucosa clear 04/02/2012 None Full Exam - General 1995 Ears/Nose/Throat oral cavity/pharynx/larynx Overall: no masses 04/02/2012 None Full Exam - General 1995 Ears/Nose/Throat oral cavity/pharynx/larynx Overall: oral mucosa clear 04/02/2012 None Full Exam - General 1994 Musculoskeletal digits and nails Overall: digits benign 04/02/2012 None Full Exam - General 1994 Musculoskeletal digits and nails Overall: no clubbing 04/02/2012 None Full Exam - General 1994 Musculoskeletal gait and station Overall: normal station 04/02/2012 None Full Exam - General 1994 Musculoskeletal gait and station Overall: normal gait 04/02/2012 None Full Exam - General 1994 Musculoskeletal spine, ribs and pelvis Overall: good posture 04/02/2012 None Full Exam - General 1994 Musculoskeletal spine, ribs and pelvis Overall: sacroiliac joint benign 04/02/2012 None Full Exam - General 1994 Musculoskeletal spine, ribs and pelvis Overall: spine benign 04/02/2012 None Full Exam - ENT Neurologic orientation Overall: oriented to person, place a nd time 01/24/2012 None Full Exam - ENT Lymphatic palpation of lymph nodes Overall: anterior cervical chain benign 01/24/2012 None Full Exam - ENT Lymphatic palpation of lymph nodes Overall: posterior cervical chain benign 01/24/2012 None Full Exam - ENT Cardiovascular auscultation of heart Overall: regular rate 01/24/2012 None Full Exam - ENT Cardiovascular auscultation of heart Overall: normal heart sounds 01/24/2012 None Full Exam - ENT Respiratory auscultation Overall: breath sounds clear bilater ally 01/24/2012 None Full Exam - ENT Face and Head palpation Overall: no sinus tenderness 01/24/2012 None Full Exam - ENT Ears/Nose/Throat otoscopic exam Overall: external auditory canals normal 01/24/2012 None Full Exam - ENT Ears/Nose/Throat otoscopic exam Left tympanic membrane: air-fluid le ingrid 01/24/2012 None Full Exam - ENT Ears/Nose/Throat otoscopic exam Right tympanic membrane: air-fluid level 01/24/2012 None Full Exam - ENT Ears/Nose/Throat oropharynx Overall: oral mucosa clear 01/24/2012 None Full Exam - ENT Constitutional general appearance Overall: well nourished 01/24/2012 None Full Exam - ENT Constitutional general appearance Overall: well developed 01/24/2012 None Full Exam - ENT Constitutional general appearance Overall: in no acute distress 01/24/2012 None Full Exam - ENT Ears/Nose/Throat nasal mucosa, septum, turbinates Drainage: purulent 01/24/2012 None Full Exam - ENT Ears/Nose/Throat nasal mucosa, septum, turbinates Left nasal cavity: erythema 01/24/2012 None Full Exam - ENT Ears/Nose/Throat nasal mucosa, septum, turbinates Right nasal cavity: erythema 01/24/2012 None Full Exam - Cardiology Constitutional general appearance Overall: well nourished 10/03/2011 None Full Exam - Cardiology Constitutional general appearance Overall: well developed 10/03/2011 None Full Exam - Cardiology Constitutional general appearance Overall: in no acute distress 10/03/2011 None Full Exam - Cardiology Eyes conjunctiva/eyelids Overall: conjunctiva clear 10/03/2011 None Full Exam - Cardiology Chest/Breast breast/chest inspection Overall: normal chest shape 10/03/2011 None Full Exam - Cardiology Respiratory respiratory effort/rhythm Overall: no retractions 10/03/2011 None Full Exam - Cardiology Respiratory respiratory effort/rhythm Overall: normal rate 10/03/2011 None Full Exam - Cardiology Respiratory auscultation Overall: breath sounds clear bilaterally 10/03/2011 None Full Exam - Cardiology Cardiovascular auscultation of heart Overall: regular rate 10/03/2011 None Full Exam - Cardiology Cardiovascular auscultation of heart Overall: normal heart sounds 10/03/2011 None Full Exam - Cardiology Cardiovascular extremities Overall: without clubbing, cyanosis, or edema 10/03/2011 None Full Exam - Cardiology Abdomen abdominal exam Overall: no tenderness 10/03/2011 None Full Exam - Cardiology Abdomen abdominal exam Overall: normal bowel sounds 10/03/2011 None Full Exam - Cardiology Extremities digits and nails Overall: no clubbing 10/03/2011 None Full Exam - Cardiology Extremities digits and nails Overall: digits benign 10/03/2011 None Full Exam - Cardiology Psychiatric orientation/consciousness Overall: oriented to person, place and time 10/03/2011 None Full Exam - General 1994 Psychiatric mood and affect Overall: normal mood and affect 05/30/2011 None Full Exam - General 1994 Psychiatric orientation/consciousness Overall: oriented to person, place and time 05/30/2011 None Full Exam - General 1994 Neurologic gait Overall: no ataxia, no unsteadiness 05/30/2011 None Full Exam - General 1994 Abdomen abdominal exam Overall: no tenderness 05/30/2011 None Full Exam - General 1994 Abdomen abdominal exam Overall: normal bowel sounds 05/30/2011 None Full Exam - General 1994 Abdomen abdominal exam Contour: rounded 05/30/2011 None Full Exam - General 1994 Cardiovascular auscultation of heart Overall: regular rate 05/30/2011 None Full Exam - General 1994 Cardiovascular auscultation of heart Overall: normal heart sounds 05/30/2011 None Full Exam - General 1994 Cardiovascular auscultation of heart Overall: no murmurs 05/30/2011 None Full Exam - General 1994 Respiratory auscultation Overall: breath sounds clear bilaterally 05/30/2011 None Full Exam - General 1994 Respiratory respiratory effort/rhythm Overall: normal rate 05/30/2011 None Full Exam - General 1994 Respiratory respiratory effort/rhythm Overall: no retractions 05/30/2011 None Full Exam - General 1994 Constitutional general appearance Overall: well nourished 05/30/2011 None Full Exam - General 1994 Constitutional general appearance Overall: well developed 05/30/2011 None Full Exam - General 1994 Constitutional general appearance Overall: in no acute distress 05/30/2011 None Full Exam - General 1994 Eyes pupils and irises Overall: pupils equal, round, reactive to light and accomodation 05/30/2011 None Exam Name System Name It em Name Status Result Effective Dates Notes Full Exam - General 1994 Constitutional general appearance Overall: well developed 09/11/2018 None Full Exam - General 1994 Constitutional general appearance Overall: in no acute distress 09/11/2018 None Full Exam - General 1994 Constitutional general appearance Overall: well nourished 09/11/2018 None Full Exam - General 1994 Eyes pupils and irises Overall: pupils equal, round, reactive to light and accomodation 09/11/2018 None Full Exam - General 1994 Ears/Nose/Throat otoscopic exam Overall: external auditory canals clear 09/11/2018 None Full Exam - General 1995 Ears/Nose/Throat otoscopic exam Overall: tympanic membranes clear 09/11/2018 None Full Exam - General 1994 Ears/Nose/Throat oral cavity/pharynx/larynx Overall: no masses 09/11/2018 None Full Exam - General 1994 Respiratory auscultation Overall: breath sounds clear bilaterally 09/11/2018 None Full Exam - General 1994 Respiratory respiratory effort/rhythm Overall: no retractions 09/11/2018 None Full Exam - General 1994 Respiratory respiratory effort/rhythm Overall: normal rate 09/11/2018 None Full Exam - General 1994 Cardiovascular auscultation of heart Overall: regular rate 09/11/2018 None Full Exam - General 1994 Cardiovascular auscultation of heart Overall: normal heart sounds 09/11/2018 None Full Exam - General 1994 Cardiovascular auscultation of heart Overall: no murmurs 09/11/2018 None Full Exam - General 1994 Abdomen abdominal exam Overall: no tenderness 09/11/2018 None Full Exam - General 1994 Abdomen abdominal exam Overall: normal bowel sounds 09/11/2018 None Full Exam - General 1994 Abdomen abdominal exam Contour: rounded 09/11/2018 None Full Exam - General 1994 Musculoskeletal spine, ribs and pelvis Overall: good posture 09/11/2018 None Full Exam - General 1994 Neurologic gait Overall: no ataxia, no unsteadiness 09/11/2018 None Full Exam - General 1994 Psychiatric orientation/consciousness Overall: oriented to person, place and time 09/11/2018 None Full Exam - General 1994 Psychiatric mood and affect Overall: normal mood and affect 09/11/2018 None Full Exam - General 1994 Cardiovascular extremities Edema present: pitting 09/11/2018 None Full Exam - General 1994 Cardiovascular extremities Edema present: severity 1+ - 4+: 2+ 09/11/2018 None Full Exam - General 1994 Constitutional general appearance Overall: well developed 06/04/2018 None Full Exam - General 1994 Constitutional general appearance Overall: in no acute distress 06/04/2018 None Full Exam - General 1994 Constitutional general appearance Overall: well nourished 06/04/2018 None Full Exam - General 1994 Eyes pupils and irises Overall: pupils equal, round, reactive to light and accomodation 06/04/2018 None Full Exam - General 1994 Ears/Nose/Throat otoscopic exam Overall: external auditory canals clear 06/04/2018 None Full Exam - General 1994 Ears/Nose/Throat otoscopic exam Overall: tympanic membranes clear 06/04/2018 None Full Exam - General 1994 Ears/Nose/Throat oral cavity/pharynx/larynx Overall: no masses 06/04/2018 None Full Exam - General 1994 Ears/Nose/Throat oral cavity/pharynx/larynx Oral mucosa: erythroplakia 06/04/2018 None Full Exam - General 1994 Ears/Nose/Throat oral cavity/pharynx/larynx Oral mucosa: thrush 06/04/2018 None Full Exam - General 1994 Respiratory respiratory effort/rhythm Overall: no retractions 06/04/2018 None Full Exam - General 1994 Respiratory respiratory effort/rhythm Overall: normal rate 06/04/2018 None Full Exam - General 1994 Cardiovascular auscultation of heart Overall: regular rate 06/04/2018 None Full Exam - General 1994 Cardiovascular auscultation of heart Overall: normal heart sounds 06/04/2018 None Full Exam - General 1994 Cardiovascular auscultation of heart Overall: no murmurs 06/04/2018 None Full Exam - General 1994 Abdomen abdominal exam Overall: no tenderness 06/04/2018 None Full Exam - General 1994 Abdomen abdominal exam Overall: normal bowel sounds 06/04/2018 None Full Exam - General 1994 Abdomen abdominal exam Contour: rounded 06/04/2018 None Full Exam - General 1994 Musculoskeletal spine, ribs and pelvis Overall: good posture 06/04/2018 None Full Exam - General 1994 Musculoskeletal spine, ribs and pelvis Palpation: tender at greater trochanter 06/04/2018 None Full Exam - General 1994 Neurologic gait Overall: no ataxia, no unsteadiness 06/04/2018 None Full Exam - General 1994 Psychiatric orientation/consciousness Overall: oriented to person, place and time 06/04/2018 Full Exam - General 1994 Psychiatric mood and affect Overall: normal mood and affect 06/04/2018 None Full Exam - General 1994 Respiratory auscultation Upper lung field: Breath sounds clear 06/04/2018 None Full Exam - General 1994 Respiratory auscultation Lower lung field: crackles 06/04/2018 None Full Exam - General 1994 Constitutional general appearance Overall: well developed 03/27/2018 None Full Exam - General 1994 Constitutional general appearance Overall: in no acute distress 03/27/2018 None Full Exam - General 1994 Constitutional general appearance Overall: well nourished 03/27/2018 None Full Exam - General 1994 Eyes pupils and irises Overall: pupils equal, round, reactive to light and accomodation 03/27/2018 None Full Exam - General 1994 Ears/Nose/Throat otoscopic exam Overall: external auditory canals clear 03/27/2018 None Full Exam - General 1994 Ears/Nose/Throat otoscopic exam Overall: tympanic membranes clear 03/27/2018 None Full Exam - General 1994 Ears/Nose/Throat oral cavity/pharynx/larynx Overall: no masses 03/27/2018 None Full Exam - General 1994 Respiratory auscultation Overall: breath sounds clear bilaterally 03/27/2018 None Full Exam - General 1994 Respiratory respiratory effort/rhythm Overall: no retractions 03/27/2018 None Full Exam - General 1994 Respiratory respiratory effort/rhythm Overall: normal rate 03/27/2018 None Full Exam - General 1994 Cardiovascular auscultation of heart Overall: regular rate 03/27/2018 None Full Exam - General 1994 Cardiovascular auscultation of heart Overall: normal heart sounds 03/27/2018 None Full Exam - General 1994 Cardiovascular auscultation of heart Overall: no murmurs 03/27/2018 None Full Exam - General 1994 Abdomen abdominal exam Overall: no tenderness 03/27/2018 None Full Exam - General 1994 Abdomen abdominal exam Overall: normal bowel sounds 03/27/2018 None Full Exam - General 1994 Abdomen abdominal exam Contour: rounded 03/27/2018 None Full Exam - General 1994 Musculoskeletal spine, ribs and pelvis Overall: good posture 03/27/2018 None Full Exam - General 1994 Neurologic gait Overall: no ataxia, no unsteadiness 03/27/2018 None Full Exam - General 1994 Psychiatric orientation/consciousness Overall: oriented to person, place and time 03/27/2018 None Full Exam - General 1994 Psychiatric mood and affect Overall: normal mood and affect 03/27/2018 None Full Exam - General 1994 Integument inspection of skin Overall: few scattered moles, no gross abnormalities 03/27/2018 None Full Exam - General 1994 Constitutional general appearance Overall: well developed 03/19/2018 None Full Exam - General 1994 Constitutional general appearance Overall: in no acute distress 03/19/2018 None Full Exam - General 1994 Constitutional general appearance Overall: well nourished 03/19/2018 None Full Exam - General 1994 Eyes pupils and irises Overall: pupils equal, round, reactive to light and accomodation 03/19/2018 None Full Exam - General 1994 Ears/Nose/Throat otoscopic exam Overall: external auditory canals clear 03/19/2018 None Full Exam - General 1994 Ears/Nose/Throat otoscopic exam Overall: tympanic membranes clear 03/19/2018 None Full Exam - General 1994 Ears/Nose/Throat oral cavity/pharynx/larynx Overall: no masses 03/19/2018 None Full Exam - General 1994 Respiratory auscultation Overall: breath sounds clear bilaterally 03/19/2018 None Full Exam - General 1994 Respiratory respiratory effort/rhythm Overall: no retractions 03/19/2018 None Full Exam - General 1994 Respiratory respiratory effort/rhythm Overall: normal rate 03/19/2018 None Full Exam - General 1994 Cardiovascular auscultation of heart Overall: regular rate 03/19/2018 None Full Exam - General 1994 Cardiovascular auscultation of heart Overall: normal heart sounds 03/19/2018 None Full Exam - General 1994 Cardiovascular auscultation of heart Overall: no murmurs 03/19/2018 None Full Exam - General 1994 Abdomen abdominal exam Overall: no tenderness 03/19/2018 None Full Exam - General 1994 Abdomen abdominal exam Overall: normal bowel sounds 03/19/2018 None Full Exam - General 1994 Abdomen abdominal exam Contour: rounded 03/19/2018 None Full Exam - General 1994 Musculoskeletal spine, ribs and pelvis Overall: good posture 03/19/2018 None Full Exam - General 1994 Neurologic gait Overall: no ataxia, no unsteadiness 03/19/2018 None Full Exam - General 1994 Psychiatric orientation/consciousness Overall: oriented to person, place and time 03/19/2018 None Full Exam - General 1994 Psychiatric mood and affect Overall: normal mood and affect 03/19/2018 None Full Exam - General 1994 Ears/Nose/Throat oral cavity/pharynx/larynx Oral mucosa: erythroplakia 03/19/2018 None Full Exam - General 1994 Ears/Nose/Throat oral cavity/pharynx/larynx Oral mucosa: thrush 03/19/2018 None Full Exam - General 1994 Musculoskeletal spine, ribs and pelvis Palpation: tender at greater trochanter 03/19/2018 None Full Exam - General 1994 Constitutional general appearance Overall: well developed 01/30/2018 None Full Exam - General 1994 Constitutional general appearance Overall: in no acute distress 01/30/2018 None Full Exam - General 1994 Constitutional general appearance Overall: well nourished 01/30/2018 None Full Exam - General 1994 Eyes pupils and irises Overall: pupils equal, round, reactive to light and accomodation 01/30/2018 None Full Exam - General 1994 Ears/Nose/Throat otoscopic exam Overall: external auditory canals clear 01/30/2018 None Full Exam - General 1994 Ears/Nose/Throat otoscopic exam Overall: tympanic membranes clear 01/30/2018 None Full Exam - General 1994 Ears/Nose/Throat oral cavity/pharynx/larynx Overall: oral mucosa clear 01/30/2018 None Full Exam - General 1994 Ears/Nose/Throat oral cavity/pharynx/larynx Overall: oropharyngeal mucosa clear 01/30/2018 None Full Exam - General 1994 Ears/Nose/Throat oral cavity/pharynx/larynx Overall: no masses 01/30/2018 None Full Exam - General 1994 Respiratory auscultation Overall: breath sounds clear bilaterally 01/30/2018 None Full Exam - General 1994 Respiratory respiratory effort/rhythm Overall: no retractions 01/30/2018 None Full Exam - General 1994 Respiratory respiratory effort/rhythm Overall: normal rate 01/30/2018 None Full Exam - General 1994 Cardiovascular auscultation of heart Overall: regular rate 01/30/2018 None Full Exam - General 1994 Cardiovascular auscultation of heart Overall: normal heart sounds 01/30/2018 None Full Exam - General 1994 Cardiovascular auscultation of heart Overall: no murmurs 01/30/2018 None Full Exam - General 1994 Abdomen abdominal exam Overall: no tenderness 01/30/2018 None Full Exam - General 1994 Abdomen abdominal exam Overall: normal bowel sounds 01/30/2018 None Full Exam - General 1994 Abdomen abdominal exam Contour: rounded 01/30/2018 None Full Exam - General 1994 Musculoskeletal digits and nails Overall: no clubbing 01/30/2018 None Full Exam - General 1994 Musculoskeletal digits and nails Overall: digits benign 01/30/2018 None Full Exam - General 1994 Musculoskeletal spine, ribs and pelvis Overall: sacroiliac joint benign 01/30/2018 None Full Exam - General 1994 Musculoskeletal spine, ribs and pelvis Posture: lordosis 01/30/2018 None Full Exam - General 1994 Musculoskeletal gait and station Overall: normal gait 01/30/2018 None Full Exam - General 1994 Musculoskeletal gait and station Overall: normal station 01/30/2018 None Full Exam - General 1994 Neurologic gait Overall: no ataxia, no unsteadiness 01/30/2018 None Full Exam - General 1994 Psychiatric orientation/consciousness Overall: oriented to person, place and time 01/30/2018 None Full Exam - General 1994 Psychiatric mood and affect Overall: normal mood and affect 01/30/2018 None Full Exam - General 1994 Constitutional general appearance Overall: well developed 12/26/2017 None Full Exam - General 1994 Constitutional general appearance Overall: in no acute distress 12/26/2017 None Full Exam - General 1994 Constitutional general appearance Overall: well nourished 12/26/2017 None Full Exam - General 1994 Eyes pupils and irises Overall: pupils equal, round, reactive to light and accomodation 12/26/2017 None Full Exam - General 1994 Ears/Nose/Throat otoscopic exam Overall: external auditory canals clear 12/26/2017 None Full Exam - General 1994 Ears/Nose/Throat otoscopic exam Overall: tympanic membranes clear 12/26/2017 None Full Exam - General 1994 Ears/Nose/Throat oral cavity/pharynx/larynx Overall: oral mucosa clear 12/26/2017 None Full Exam - General 1994 Ears/Nose/Throat oral cavity/pharynx/larynx Overall: oropharyngeal mucosa clear 12/26/2017 None Full Exam - General 1994 Ears/Nose/Throat oral cavity/pharynx/larynx Overall: no masses 12/26/2017 None Full Exam - General 1994 Respiratory auscultation Overall: breath sounds clear bilaterally 12/26/2017 None Full Exam - General 1994 Respiratory respiratory effort/rhythm Overall: no retractions 12/26/2017 None Full Exam - General 1994 Respiratory respiratory effort/rhythm Overall: normal rate 12/26/2017 None Full Exam - General 1994 Cardiovascular auscultation of heart Overall: regular rate 12/26/2017 None Full Exam - General 1994 Cardiovascular auscultation of heart Overall: normal heart sounds 12/26/2017 None Full Exam - General 1994 Cardiovascular auscultation of heart Overall: no murmurs 12/26/2017 None Full Exam - General 1994 Abdomen abdominal exam Overall: no tenderness 12/26/2017 None Full Exam - General 1994 Abdomen abdominal exam Overall: normal bowel sounds 12/26/2017 None Full Exam - General 1994 Abdomen abdominal exam Contour: rounded 12/26/2017 None Full Exam - General 1994 Musculoskeletal digits and nails Overall: no clubbing 12/26/2017 None Full Exam - General 1994 Musculoskeletal digits and nails Overall: digits benign 12/26/2017 None Full Exam - General 1994 Musculoskeletal spine, ribs and pelvis Overall: sacroiliac joint benign 12/26/2017 None Full Exam - General 1994 Musculoskeletal spine, ribs and pelvis Posture: lordosis 12/26/2017 None Full Exam - General 1994 Musculoskeletal gait and station Overall: normal gait 12/26/2017 None Full Exam - General 1994 Musculoskeletal gait and station Overall: normal station 12/26/2017 None Full Exam - General 1994 Neurologic gait Overall: no ataxia, no unsteadiness 12/26/2017 None Full Exam - General 1994 Psychiatric orientation/consciousness Overall: oriented to person, place and time 12/26/2017 None Full Exam - General 1994 Psychiatric mood and affect Overall: normal mood and affect 12/26/2017 None Full Exam - General 1994 Constitutional general appearance Overall: well developed 11/21/2017 None Full Exam - General 1994 Constitutional general appearance Overall: in no acute distress 11/21/2017 None Full Exam - General 1994 Constitutional general appearance Overall: well nourished 11/21/2017 None Full Exam - General 1994 Eyes conjunctiva/eyelids Overall: conjunctiva clear 11/21/2017 None Full Exam - General 1994 Eyes conjunctiva/eyelids Overall: cornea clear 11/21/2017 None Full Exam - General 1994 Eyes conjunctiva/eyelids Overall: eyelids normal 11/21/2017 None Full Exam - General 1994 Eyes pupils and irises Overall: pupils equal, round, reactive to light and accomodation 11/21/2017 None Full Exam - General 1994 Ears/Nose/Throat otoscopic exam Overall: external auditory canals clear 11/21/2017 None Full Exam - General 1994 Ears/Nose/Throat otoscopic exam Overall: tympanic membranes clear 11/21/2017 None Full Exam - General 1994 Ears/Nose/Throat lips/teeth/gingiva Overall: benign lips 11/21/2017 None Full Exam - General 1994 Ears/Nose/Throat oral cavity/pharynx/larynx Overall: oral mucosa clear 11/21/2017 None Full Exam - General 1994 Ears/Nose/Throat oral cavity/pharynx/larynx Overall: oropharyngeal mucosa clear 11/21/2017 None Full Exam - General 1994 Respiratory respiratory effort/rhythm Overall: no retractions 11/21/2017 None Full Exam - General 1994 Respiratory respiratory effort/rhythm Overall: normal rate 11/21/2017 None Full Exam - General 1994 Respiratory auscultation Overall: breath sounds clear bilaterally 11/21/2017 None Full Exam - General 1994 Cardiovascular auscultation of heart Overall: regular rate 11/21/2017 None Full Exam - General 1994 Cardiovascular auscultation of heart Overall: normal heart sounds 11/21/2017 None Full Exam - General 1994 Abdomen abdominal exam Overall: normal bowel sounds 11/21/2017 None Full Exam - General 1994 Abdomen abdominal exam Overall: no tenderness 11/21/2017 None Full Exam - General 1994 Musculoskeletal head and neck Overall: head atraumatic 11/21/2017 None Full Exam - General 1994 Musculoskeletal gait and station Overall: normal station 11/21/2017 None Full Exam - General 1994 Musculoskeletal gait and station Overall: normal gait 11/21/2017 None Full Exam - General 1994 Neurologic cranial nerves Overall: crainial nerves 2 - 12 grossly intact 11/21/2017 None Full Exam - General 1994 Psychiatric orientation/consciousness Overall: oriented to person, place and time 11/21/2017 None Full Exam - General 1994 Psychiatric mood and affect Overall: normal mood and affect 11/21/2017 None Full Exam - General 1994 Psychiatric appearance Overall: well-groomed, good eye contact 11/21/2017 None Full Exam - General 1994 Constitutional general appearance Overall: well developed 10/19/2017 None Full Exam - General 1994 Constitutional general appearance Overall: in no acute distress 10/19/2017 None Full Exam - General 1994 Constitutional general appearance Overall: well nourished 10/19/2017 None Full Exam - General 1994 Eyes pupils and irises Overall: pupils equal, round, reactive to light and accomodation 10/19/2017 None Full Exam - General 1994 Ears/Nose/Throat otoscopic exam Overall: external auditory canals clear 10/19/2017 None Full Exam - General 1994 Ears/Nose/Throat otoscopic exam Overall: tympanic membranes clear 10/19/2017 None Full Exam - General 1994 Ears/Nose/Throat oral cavity/pharynx/larynx Overall: oral mucosa clear 10/19/2017 None Full Exam - General 1994 Ears/Nose/Throat oral cavity/pharynx/larynx Overall: oropharyngeal mucosa clear 10/19/2017 None Full Exam - General 1994 Ears/Nose/Throat oral cavity/pharynx/larynx Overall: no masses 10/19/2017 None Full Exam - General 1994 Respiratory auscultation Overall: breath sounds clear bilaterally 10/19/2017 None Full Exam - General 1994 Respiratory respiratory effort/rhythm Overall: no retractions 10/19/2017 None Full Exam - General 1994 Respiratory respiratory effort/rhythm Overall: normal rate 10/19/2017 None Full Exam - General 1994 Cardiovascular auscultation of heart Overall: regular rate 10/19/2017 None Full Exam - General 1994 Cardiovascular auscultation of heart Overall: normal heart sounds 10/19/2017 None Full Exam - General 1994 Cardiovascular auscultation of heart Overall: no murmurs 10/19/2017 None Full Exam - General 1994 Abdomen abdominal exam Overall: no tenderness 10/19/2017 None Full Exam - General 1994 Abdomen abdominal exam Overall: normal bowel sounds 10/19/2017 None Full Exam - General 1994 Abdomen abdominal exam Contour: rounded 10/19/2017 None Full Exam - General 1994 Musculoskeletal digits and nails Overall: no clubbing 10/19/2017 None Full Exam - General 1994 Musculoskeletal digits and nails Overall: digits benign 10/19/2017 None Full Exam - General 1994 Musculoskeletal spine, ribs and pelvis Overall: spine benign 10/19/2017 None Full Exam - General 1994 Musculoskeletal spine, ribs and pelvis Overall: sacroiliac joint benign 10/19/2017 None Full Exam - General 1994 Musculoskeletal spine, ribs and pelvis Overall: good posture 10/19/2017 None Full Exam - General 1994 Musculoskeletal gait and station Overall: normal gait 10/19/2017 None Full Exam - General 1994 Musculoskeletal gait and station Overall: normal station 10/19/2017 None Full Exam - General 1994 Neurologic gait Overall: no ataxia, no unsteadiness 10/19/2017 None Full Exam - General 1994 Psychiatric orientation/consciousness Overall: oriented to person, place and time 10/19/2017 None Full Exam - General 1994 Psychiatric mood and affect Overall: normal mood and affect 10/19/2017 None Full Exam - General 1994 Constitutional general appearance Overall: well developed 09/18/2017 None Full Exam - General 1994 Constitutional general appearance Overall: in no acute distress 09/18/2017 None Full Exam - General 1994 Constitutional general appearance Overall: well nourished 09/18/2017 None Full Exam - General 1994 Eyes pupils and irises Overall: pupils equal, round, reactive to light and accomodation 09/18/2017 None Full Exam - General 1994 Ears/Nose/Throat otoscopic exam Overall: external auditory canals clear 09/18/2017 None Full Exam - General 1994 Ears/Nose/Throat otoscopic exam Overall: tympanic membranes clear 09/18/2017 None Full Exam - General 1994 Ears/Nose/Throat oral cavity/pharynx/larynx Overall: oral mucosa clear 09/18/2017 None Full Exam - General 1994 Ears/Nose/Throat oral cavity/pharynx/larynx Overall: oropharyngeal mucosa clear 09/18/2017 None Full Exam - General 1994 Ears/Nose/Throat oral cavity/pharynx/larynx Overall: no masses 09/18/2017 None Full Exam - General 1994 Respiratory auscultation Overall: breath sounds clear bilaterally 09/18/2017 None Full Exam - General 1994 Respiratory respiratory effort/rhythm Overall: no retractions 09/18/2017 None Full Exam - General 1994 Respiratory respiratory effort/rhythm Overall: normal rate 09/18/2017 None Full Exam - General 1994 Cardiovascular auscultation of heart Overall: regular rate 09/18/2017 None Full Exam - General 1994 Cardiovascular auscultation of heart Overall: normal heart sounds 09/18/2017 None Full Exam - General 1994 Cardiovascular auscultation of heart Overall: no murmurs 09/18/2017 None Full Exam - General 1994 Abdomen abdominal exam Overall: no tenderness 09/18/2017 None Full Exam - General 1994 Abdomen abdominal exam Overall: normal bowel sounds 09/18/2017 None Full Exam - General 1994 Abdomen abdominal exam Contour: rounded 09/18/2017 None Full Exam - General 1994 Musculoskeletal digits and nails Overall: no clubbing 09/18/2017 None Full Exam - General 1994 Musculoskeletal digits and nails Overall: digits benign 09/18/2017 None Full Exam - General 1994 Musculoskeletal spine, ribs and pelvis Overall: spine benign 09/18/2017 None Full Exam - General 1994 Musculoskeletal spine, ribs and pelvis Overall: sacroiliac joint benign 09/18/2017 None Full Exam - General 1994 Musculoskeletal spine, ribs and pelvis Overall: good posture 09/18/2017 None Full Exam - General 1994 Musculoskeletal gait and station Overall: normal gait 09/18/2017 None Full Exam - General 1994 Musculoskeletal gait and station Overall: normal station 09/18/2017 None Full Exam - General 1994 Neurologic gait Overall: no ataxia, no unsteadiness 09/18/2017 None Full Exam - General 1994 Psychiatric orientation/consciousness Overall: oriented to person, place and time 09/18/2017 None Full Exam - General 1994 Psychiatric mood and affect Overall: normal mood and affect 09/18/2017 None Full Exam - General 1994 Constitutional general appearance Overall: well developed 07/21/2017 None Full Exam - General 1994 Constitutional general appearance Overall: in no acute distress 07/21/2017 None Full Exam - General 1994 Constitutional general appearance Overall: well nourished 07/21/2017 None Full Exam - General 1994 Eyes pupils and irises Overall: pupils equal, round, reactive to light and accomodation 07/21/2017 None Full Exam - General 1994 Ears/Nose/Throat otoscopic exam Overall: external auditory canals clear 07/21/2017 None Full Exam - General 1994 Ears/Nose/Throat otoscopic exam Overall: tympanic membranes clear 07/21/2017 None Full Exam - General 1994 Ears/Nose/Throat oral cavity/pharynx/larynx Overall: oral mucosa clear 07/21/2017 None Full Exam - General 1994 Ears/Nose/Throat oral cavity/pharynx/larynx Overall: oropharyngeal mucosa clear 07/21/2017 None Full Exam - General 1994 Ears/Nose/Throat oral cavity/pharynx/larynx Overall: no masses 07/21/2017 None Full Exam - General 1994 Respiratory auscultation Overall: breath sounds clear bilaterally 07/21/2017 None Full Exam - General 1994 Respiratory respiratory effort/rhythm Overall: no retractions 07/21/2017 None Full Exam - General 1994 Respiratory respiratory effort/rhythm Overall: normal rate 07/21/2017 None Full Exam - General 1994 Cardiovascular auscultation of heart Overall: regular rate 07/21/2017 None Full Exam - General 1994 Cardiovascular auscultation of heart Overall: normal heart sounds 07/21/2017 None Full Exam - General 1994 Cardiovascular auscultation of heart Overall: no murmurs 07/21/2017 None Full Exam - General 1994 Abdomen abdominal exam Overall: no tenderness 07/21/2017 None Full Exam - General 1994 Abdomen abdominal exam Overall: normal bowel sounds 07/21/2017 None Full Exam - General 1994 Abdomen abdominal exam Contour: rounded 07/21/2017 None Full Exam - General 1994 Musculoskeletal digits and nails Overall: no clubbing 07/21/2017 None Full Exam - General 1994 Musculoskeletal digits and nails Overall: digits benign 07/21/2017 None Full Exam - General 1994 Musculoskeletal spine, ribs and pelvis Overall: spine benign 07/21/2017 None Full Exam - General 1994 Musculoskeletal spine, ribs and pelvis Overall: sacroiliac joint benign 07/21/2017 None Full Exam - General 1994 Musculoskeletal spine, ribs and pelvis Overall: good posture 07/21/2017 None Full Exam - General 1994 Musculoskeletal gait and station Overall: normal gait 07/21/2017 None Full Exam - General 1994 Musculoskeletal gait and station Overall: normal station 07/21/2017 None Full Exam - General 1994 Neurologic gait Overall: no ataxia, no unsteadiness 07/21/2017 None Full Exam - General 1994 Psychiatric orientation/consciousness Overall: oriented to person, place and time 07/21/2017 None Full Exam - General 1994 Psychiatric mood and affect Overall: normal mood and affect 07/21/2017 None Full Exam - General 1994 Constitutional general appearance Overall: well developed 05/04/2017 None Full Exam - General 1994 Constitutional general appearance Overall: in no acute distress 05/04/2017 None Full Exam - General 1994 Constitutional general appearance Overall: well nourished 05/04/2017 None Full Exam - General 1994 Eyes pupils and irises Overall: pupils equal, round, reactive to light and accomodation 05/04/2017 None Full Exam - General 1994 Ears/Nose/Throat otoscopic exam Overall: external auditory canals clear 05/04/2017 None Full Exam - General 1994 Ears/Nose/Throat otoscopic exam Overall: tympanic membranes clear 05/04/2017 None Full Exam - General 1994 Ears/Nose/Throat oral cavity/pharynx/larynx Overall: oral mucosa clear 05/04/2017 None Full Exam - General 1994 Ears/Nose/Throat oral cavity/pharynx/larynx Overall: oropharyngeal mucosa clear 05/04/2017 None Full Exam - General 1994 Ears/Nose/Throat oral cavity/pharynx/larynx Overall: no masses 05/04/2017 None Full Exam - General 1994 Respiratory auscultation Overall: breath sounds clear bilaterally 05/04/2017 None Full Exam - General 1994 Respiratory respiratory effort/rhythm Overall: no retractions 05/04/2017 None Full Exam - General 1994 Respiratory respiratory effort/rhythm Overall: normal rate 05/04/2017 None Full Exam - General 1994 Cardiovascular auscultation of heart Overall: regular rate 05/04/2017 None Full Exam - General 1994 Cardiovascular auscultation of heart Overall: normal heart sounds 05/04/2017 None Full Exam - General 1994 Cardiovascular auscultation of heart Overall: no murmurs 05/04/2017 None Full Exam - General 1994 Abdomen abdominal exam Overall: no tenderness 05/04/2017 None Full Exam - General 1994 Abdomen abdominal exam Overall: normal bowel sounds 05/04/2017 None Full Exam - General 1994 Abdomen abdominal exam Contour: rounded 05/04/2017 None Full Exam - General 1994 Musculoskeletal digits and nails Overall: no clubbing 05/04/2017 None Full Exam - General 1994 Musculoskeletal digits and nails Overall: digits benign 05/04/2017 None Full Exam - General 1994 Musculoskeletal spine, ribs and pelvis Overall: spine benign 05/04/2017 None Full Exam - General 1994 Musculoskeletal spine, ribs and pelvis Overall: sacroiliac joint benign 05/04/2017 None Full Exam - General 1994 Musculoskeletal spine, ribs and pelvis Overall: good posture 05/04/2017 None Full Exam - General 1994 Musculoskeletal gait and station Overall: normal gait 05/04/2017 None Full Exam - General 1994 Musculoskeletal gait and station Overall: normal station 05/04/2017 None Full Exam - General 1994 Neurologic gait Overall: no ataxia, no unsteadiness 05/04/2017 None Full Exam - General 1994 Psychiatric orientation/consciousness Overall: oriented to person, place and time 05/04/2017 None Full Exam - General 1994 Psychiatric mood and affect Overall: normal mood and affect 05/04/2017 None Full Exam - General 1994 Constitutional general appearance Overall: well developed 03/30/2017 None Full Exam - General 1994 Constitutional general appearance Overall: in no acute distress 03/30/2017 None Full Exam - General 1994 Constitutional general appearance Overall: well nourished 03/30/2017 None Full Exam - General 1994 Eyes pupils and irises Overall: pupils equal, round, reactive to light and accomodation 03/30/2017 None Full Exam - General 1994 Ears/Nose/Throat oral cavity/pharynx/larynx Overall: oral mucosa clear 03/30/2017 None Full Exam - General 1994 Ears/Nose/Throat oral cavity/pharynx/larynx Overall: oropharyngeal mucosa clear 03/30/2017 None Full Exam - General 1994 Ears/Nose/Throat oral cavity/pharynx/larynx Overall: no masses 03/30/2017 None Full Exam - General 1994 Respiratory auscultation Overall: breath sounds clear bilaterally 03/30/2017 None Full Exam - General 1994 Respiratory respiratory effort/rhythm Overall: no retractions 03/30/2017 None Full Exam - General 1994 Respiratory respiratory effort/rhythm Overall: normal rate 03/30/2017 None Full Exam - General 1994 Cardiovascular auscultation of heart Overall: regular rate 03/30/2017 None Full Exam - General 1994 Cardiovascular auscultation of heart Overall: normal heart sounds 03/30/2017 None Full Exam - General 1994 Cardiovascular auscultation of heart Overall: no murmurs 03/30/2017 None Full Exam - General 1994 Abdomen abdominal exam Contour: rounded 03/30/2017 None Full Exam - General 1994 Psychiatric orientation/consciousness Overall: oriented to person, place and time 03/30/2017 None Full Exam - General 1994 Psychiatric mood and affect Overall: normal mood and affect 03/30/2017 None Full Exam - General 1994 Constitutional general appearance Overall: well developed 03/02/2017 None Full Exam - General 1994 Constitutional general appearance Overall: in no acute distress 03/02/2017 None Full Exam - General 1994 Constitutional general appearance Overall: well nourished 03/02/2017 None Full Exam - General 1994 Eyes pupils and irises Overall: pupils equal, round, reactive to light and accomodation 03/02/2017 None Full Exam - General 1994 Ears/Nose/Throat otoscopic exam Overall: external auditory canals clear 03/02/2017 None Full Exam - General 1994 Ears/Nose/Throat otoscopic exam Overall: tympanic membranes clear 03/02/2017 None Full Exam - General 1994 Ears/Nose/Throat oral cavity/pharynx/larynx Overall: oral mucosa clear 03/02/2017 None Full Exam - General 1994 Ears/Nose/Throat oral cavity/pharynx/larynx Overall: oropharyngeal mucosa clear 03/02/2017 None Full Exam - General 1994 Ears/Nose/Throat oral cavity/pharynx/larynx Overall: no masses 03/02/2017 None Full Exam - General 1994 Respiratory auscultation Overall: breath sounds clear bilaterally 03/02/2017 None Full Exam - General 1994 Respiratory respiratory effort/rhythm Overall: no retractions 03/02/2017 None Full Exam - General 1994 Respiratory respiratory effort/rhythm Overall: normal rate 03/02/2017 None Full Exam - General 1994 Cardiovascular auscultation of heart Overall: regular rate 03/02/2017 None Full Exam - General 1994 Cardiovascular auscultation of heart Overall: normal heart sounds 03/02/2017 None Full Exam - General 1994 Cardiovascular auscultation of heart Overall: no murmurs 03/02/2017 None Full Exam - General 1994 Abdomen abdominal exam Overall: no tenderness 03/02/2017 None Full Exam - General 1994 Abdomen abdominal exam Overall: normal bowel sounds 03/02/2017 None Full Exam - General 1994 Abdomen abdominal exam Contour: rounded 03/02/2017 None Full Exam - General 1994 Musculoskeletal digits and nails Overall: no clubbing 03/02/2017 None Full Exam - General 1994 Musculoskeletal digits and nails Overall: digits benign 03/02/2017 None Full Exam - General 1994 Musculoskeletal spine, ribs and pelvis Overall: sacroiliac joint benign 03/02/2017 None Full Exam - General 1994 Musculoskeletal spine, ribs and pelvis Posture: lordosis 03/02/2017 None Full Exam - General 1994 Musculoskeletal gait and station Overall: normal gait 03/02/2017 None Full Exam - General 1994 Musculoskeletal gait and station Overall: normal station 03/02/2017 None Full Exam - General 1994 Neurologic gait Overall: no ataxia, no unsteadiness 03/02/2017 None Full Exam - General 1994 Psychiatric orientation/consciousness Overall: oriented to person, place and time 03/02/2017 None Full Exam - General 1994 Psychiatric mood and affect Overall: normal mood and affect 03/02/2017 None Full Exam - General 1994 Constitutional general appearance Overall: well developed 01/31/2017 None Full Exam - General 1994 Constitutional general appearance Overall: in no acute distress 01/31/2017 None Full Exam - General 1994 Constitutional general appearance Overall: well nourished 01/31/2017 None Full Exam - General 1994 Eyes pupils and irises Overall: pupils equal, round, reactive to light and accomodation 01/31/2017 None Full Exam - General 1994 Ears/Nose/Throat otoscopic exam Overall: external auditory canals clear 01/31/2017 None Full Exam - General 1994 Ears/Nose/Throat otoscopic exam Overall: tympanic membranes clear 01/31/2017 None Full Exam - General 1994 Ears/Nose/Throat oral cavity/pharynx/larynx Overall: oral mucosa clear 01/31/2017 None Full Exam - General 1994 Ears/Nose/Throat oral cavity/pharynx/larynx Overall: oropharyngeal mucosa clear 01/31/2017 None Full Exam - General 1994 Ears/Nose/Throat oral cavity/pharynx/larynx Overall: no masses 01/31/2017 None Full Exam - General 1994 Respiratory auscultation Overall: breath sounds clear bilaterally 01/31/2017 None Full Exam - General 1994 Respiratory respiratory effort/rhythm Overall: no retractions 01/31/2017 None Full Exam - General 1994 Respiratory respiratory effort/rhythm Overall: normal rate 01/31/2017 None Full Exam - General 1994 Cardiovascular auscultation of heart Overall: regular rate 01/31/2017 None Full Exam - General 1994 Cardiovascular auscultation of heart Overall: normal heart sounds 01/31/2017 None Full Exam - General 1994 Cardiovascular auscultation of heart Overall: no murmurs 01/31/2017 None Full Exam - General 1994 Abdomen abdominal exam Overall: no tenderness 01/31/2017 None Full Exam - General 1994 Abdomen abdominal exam Overall: normal bowel sounds 01/31/2017 None Full Exam - General 1994 Abdomen abdominal exam Contour: rounded 01/31/2017 None Full Exam - General 1994 Musculoskeletal digits and nails Overall: no clubbing 01/31/2017 None Full Exam - General 1994 Musculoskeletal digits and nails Overall: digits benign 01/31/2017 None Full Exam - General 1994 Musculoskeletal spine, ribs and pelvis Overall: spine benign 01/31/2017 None Full Exam - General 1994 Musculoskeletal spine, ribs and pelvis Overall: sacroiliac joint benign 01/31/2017 None Full Exam - General 1994 Musculoskeletal spine, ribs and pelvis Overall: good posture 01/31/2017 None Full Exam - General 1994 Musculoskeletal gait and station Overall: normal gait 01/31/2017 None Full Exam - General 1994 Musculoskeletal gait and station Overall: normal station 01/31/2017 None Full Exam - General 1994 Neurologic gait Overall: no ataxia, no unsteadiness 01/31/2017 None Full Exam - General 1994 Psychiatric orientation/consciousness Overall: oriented to person, place and time 01/31/2017 None Full Exam - General 1994 Psychiatric mood and affect Overall: normal mood and affect 01/31/2017 None Full Exam - General 1994 Constitutional general appearance Overall: well developed 10/25/2016 None Full Exam - General 1994 Constitutional general appearance Overall: in no acute distress 10/25/2016 None Full Exam - General 1994 Constitutional general appearance Overall: well nourished 10/25/2016 None Full Exam - General 1994 Eyes pupils and irises Overall: pupils equal, round, reactive to light and accomodation 10/25/2016 None Full Exam - General 1994 Ears/Nose/Throat otoscopic exam Overall: external auditory canals clear 10/25/2016 None Full Exam - General 1994 Ears/Nose/Throat otoscopic exam Overall: tympanic membranes clear 10/25/2016 None Full Exam - General 1994 Ears/Nose/Throat oral cavity/pharynx/larynx Overall: oral mucosa clear 10/25/2016 None Full Exam - General 1994 Ears/Nose/Throat oral cavity/pharynx/larynx Overall: oropharyngeal mucosa clear 10/25/2016 None Full Exam - General 1994 Ears/Nose/Throat oral cavity/pharynx/larynx Overall: no masses 10/25/2016 None Full Exam - General 1994 Respiratory auscultation Overall: breath sounds clear bilaterally 10/25/2016 None Full Exam - General 1994 Respiratory respiratory effort/rhythm Overall: no retractions 10/25/2016 None Full Exam - General 1994 Respiratory respiratory effort/rhythm Overall: normal rate 10/25/2016 None Full Exam - General 1994 Cardiovascular auscultation of heart Overall: regular rate 10/25/2016 None Full Exam - General 1994 Cardiovascular auscultation of heart Overall: normal heart sounds 10/25/2016 None Full Exam - General 1994 Cardiovascular auscultation of heart Overall: no murmurs 10/25/2016 None Full Exam - General 1994 Abdomen abdominal exam Overall: no tenderness 10/25/2016 None Full Exam - General 1994 Abdomen abdominal exam Overall: normal bowel sounds 10/25/2016 None Full Exam - General 1994 Abdomen abdominal exam Contour: rounded 10/25/2016 None Full Exam - General 1994 Musculoskeletal digits and nails Overall: no clubbing 10/25/2016 None Full Exam - General 1994 Musculoskeletal digits and nails Overall: digits benign 10/25/2016 None Full Exam - General 1994 Musculoskeletal spine, ribs and pelvis Overall: sacroiliac joint benign 10/25/2016 None Full Exam - General 1994 Musculoskeletal spine, ribs and pelvis Posture: lordosis 10/25/2016 None Full Exam - General 1994 Musculoskeletal gait and station Overall: normal gait 10/25/2016 None Full Exam - General 1994 Musculoskeletal gait and station Overall: normal station 10/25/2016 None Full Exam - General 1994 Neurologic gait Overall: no ataxia, no unsteadiness 10/25/2016 None Full Exam - General 1994 Psychiatric orientation/consciousness Overall: oriented to person, place and time 10/25/2016 None Full Exam - General 1994 Psychiatric mood and affect Overall: normal mood and affect 10/25/2016 None Full Exam - General 1994 Constitutional general appearance Overall: well developed 07/27/2016 None Full Exam - General 1994 Constitutional general appearance Overall: in no acute distress 07/27/2016 None Full Exam - General 1994 Constitutional general appearance Overall: well nourished 07/27/2016 None Full Exam - General 1994 Eyes pupils and irises Overall: pupils equal, round, reactive to light and accomodation 07/27/2016 None Full Exam - General 1994 Ears/Nose/Throat otoscopic exam Overall: external auditory canals clear 07/27/2016 None Full Exam - General 1994 Ears/Nose/Throat otoscopic exam Overall: tympanic membranes clear 07/27/2016 None Full Exam - General 1994 Ears/Nose/Throat oral cavity/pharynx/larynx Overall: oral mucosa clear 07/27/2016 None Full Exam - General 1994 Ears/Nose/Throat oral cavity/pharynx/larynx Overall: oropharyngeal mucosa clear 07/27/2016 None Full Exam - General 1994 Ears/Nose/Throat oral cavity/pharynx/larynx Overall: no masses 07/27/2016 None Full Exam - General 1994 Respiratory auscultation Overall: breath sounds clear bilaterally 07/27/2016 None Full Exam - General 1994 Respiratory respiratory effort/rhythm Overall: no retractions 07/27/2016 None Full Exam - General 1994 Respiratory respiratory effort/rhythm Overall: normal rate 07/27/2016 None Full Exam - General 1994 Cardiovascular auscultation of heart Overall: regular rate 07/27/2016 None Full Exam - General 1994 Cardiovascular auscultation of heart Overall: normal heart sounds 07/27/2016 None Full Exam - General 1994 Cardiovascular auscultation of heart Overall: no murmurs 07/27/2016 None Full Exam - General 1994 Abdomen abdominal exam Overall: no tenderness 07/27/2016 None Full Exam - General 1994 Abdomen abdominal exam Overall: normal bowel sounds 07/27/2016 None Full Exam - General 1994 Abdomen abdominal exam Contour: rounded 07/27/2016 None Full Exam - General 1994 Musculoskeletal digits and nails Overall: no clubbing 07/27/2016 None Full Exam - General 1994 Musculoskeletal digits and nails Overall: digits benign 07/27/2016 None Full Exam - General 1994 Musculoskeletal spine, ribs and pelvis Overall: sacroiliac joint benign 07/27/2016 None Full Exam - General 1994 Musculoskeletal spine, ribs and pelvis Posture: lordosis 07/27/2016 None Full Exam - General 1994 Musculoskeletal gait and station Overall: normal gait 07/27/2016 None Full Exam - General 1994 Musculoskeletal gait and station Overall: normal station 07/27/2016 None Full Exam - General 1994 Neurologic gait Overall: no ataxia, no unsteadiness 07/27/2016 None Full Exam - General 1994 Psychiatric orientation/consciousness Overall: oriented to person, place and time 07/27/2016 None Full Exam - General 1994 Psychiatric mood and affect Overall: normal mood and affect 07/27/2016 None Full Exam - General 1994 Constitutional general appearance Overall: well developed 05/26/2016 None Full Exam - General 1994 Constitutional general appearance Overall: in no acute distress 05/26/2016 None Full Exam - General 1994 Constitutional general appearance Overall: well nourished 05/26/2016 None Full Exam - General 1994 Eyes pupils and irises Overall: pupils equal, round, reactive to light and accomodation 05/26/2016 None Full Exam - General 1994 Ears/Nose/Throat otoscopic exam Overall: external auditory canals clear 05/26/2016 None Full Exam - General 1994 Ears/Nose/Throat otoscopic exam Overall: tympanic membranes clear 05/26/2016 None Full Exam - General 1994 Ears/Nose/Throat oral cavity/pharynx/larynx Overall: oral mucosa clear 05/26/2016 None Full Exam - General 1994 Ears/Nose/Throat oral cavity/pharynx/larynx Overall: oropharyngeal mucosa clear 05/26/2016 None Full Exam - General 1994 Ears/Nose/Throat oral cavity/pharynx/larynx Overall: no masses 05/26/2016 None Full Exam - General 1994 Respiratory auscultation Overall: breath sounds clear bilaterally 05/26/2016 None Full Exam - General 1994 Respiratory respiratory effort/rhythm Overall: no retractions 05/26/2016 None Full Exam - General 1994 Respiratory respiratory effort/rhythm Overall: normal rate 05/26/2016 None Full Exam - General 1994 Cardiovascular auscultation of heart Overall: regular rate 05/26/2016 None Full Exam - General 1994 Cardiovascular auscultation of heart Overall: normal heart sounds 05/26/2016 None Full Exam - General 1994 Cardiovascular auscultation of heart Overall: no murmurs 05/26/2016 None Full Exam - General 1994 Abdomen abdominal exam Overall: no tenderness 05/26/2016 None Full Exam - General 1994 Abdomen abdominal exam Overall: normal bowel sounds 05/26/2016 None Full Exam - General 1994 Abdomen abdominal exam Contour: rounded 05/26/2016 None Full Exam - General 1994 Musculoskeletal digits and nails Overall: no clubbing 05/26/2016 None Full Exam - General 1994 Musculoskeletal digits and nails Overall: digits benign 05/26/2016 None Full Exam - General 1994 Musculoskeletal spine, ribs and pelvis Overall: sacroiliac joint benign 05/26/2016 None Full Exam - General 1994 Musculoskeletal spine, ribs and pelvis Posture: lordosis 05/26/2016 None Full Exam - General 1994 Musculoskeletal gait and station Overall: normal gait 05/26/2016 None Full Exam - General 1994 Musculoskeletal gait and station Overall: normal station 05/26/2016 None Full Exam - General 1994 Neurologic gait Overall: no ataxia, no unsteadiness 05/26/2016 None Full Exam - General 1994 Psychiatric orientation/consciousness Overall: oriented to person, place and time 05/26/2016 None Full Exam - General 1994 Psychiatric mood and affect Overall: normal mood and affect 05/26/2016 None Full Exam - General 1994 Constitutional general appearance Overall: well developed 05/12/2016 None Full Exam - General 1994 Constitutional general appearance Overall: in no acute distress 05/12/2016 None Full Exam - General 1994 Constitutional general appearance Overall: well nourished 05/12/2016 None Full Exam - General 1994 Eyes pupils and irises Overall: pupils equal, round, reactive to light and accomodation 05/12/2016 None Full Exam - General 1994 Ears/Nose/Throat otoscopic exam Overall: external auditory canals clear 05/12/2016 None Full Exam - General 1994 Ears/Nose/Throat otoscopic exam Overall: tympanic membranes clear 05/12/2016 None Full Exam - General 1994 Ears/Nose/Throat oral cavity/pharynx/larynx Overall: oral mucosa clear 05/12/2016 None Full Exam - General 1994 Ears/Nose/Throat oral cavity/pharynx/larynx Overall: oropharyngeal mucosa clear 05/12/2016 None Full Exam - General 1994 Ears/Nose/Throat oral cavity/pharynx/larynx Overall: no masses 05/12/2016 None Full Exam - General 1994 Respiratory auscultation Overall: breath sounds clear bilaterally 05/12/2016 None Full Exam - General 1994 Respiratory respiratory effort/rhythm Overall: no retractions 05/12/2016 None Full Exam - General 1994 Respiratory respiratory effort/rhythm Overall: normal rate 05/12/2016 None Full Exam - General 1994 Cardiovascular auscultation of heart Overall: regular rate 05/12/2016 None Full Exam - General 1994 Cardiovascular auscultation of heart Overall: normal heart sounds 05/12/2016 None Full Exam - General 1994 Cardiovascular auscultation of heart Overall: no murmurs 05/12/2016 None Full Exam - General 1994 Abdomen abdominal exam Overall: no tenderness 05/12/2016 None Full Exam - General 1994 Abdomen abdominal exam Overall: normal bowel sounds 05/12/2016 None Full Exam - General 1994 Abdomen abdominal exam Contour: rounded 05/12/2016 None Full Exam - General 1994 Musculoskeletal digits and nails Overall: no clubbing 05/12/2016 None Full Exam - General 1994 Musculoskeletal digits and nails Overall: digits benign 05/12/2016 None Full Exam - General 1994 Musculoskeletal spine, ribs and pelvis Overall: sacroiliac joint benign 05/12/2016 None Full Exam - General 1994 Musculoskeletal spine, ribs and pelvis Posture: lordosis 05/12/2016 None Full Exam - General 1994 Musculoskeletal gait and station Overall: normal gait 05/12/2016 None Full Exam - General 1994 Musculoskeletal gait and station Overall: normal station 05/12/2016 None Full Exam - General 1994 Neurologic gait Overall: no ataxia, no unsteadiness 05/12/2016 None Full Exam - General 1994 Psychiatric orientation/consciousness Overall: oriented to person, place and time 05/12/2016 None Full Exam - General 1994 Psychiatric mood and affect Overall: normal mood and affect 05/12/2016 None Full Exam - General 1994 Constitutional general appearance Overall: well developed 02/23/2016 None Full Exam - General 1994 Constitutional general appearance Overall: in no acute distress 02/23/2016 None Full Exam - General 1994 Constitutional general appearance Overall: well nourished 02/23/2016 None Full Exam - General 1994 Eyes pupils and irises Overall: pupils equal, round, reactive to light and accomodation 02/23/2016 None Full Exam - General 1994 Ears/Nose/Throat otoscopic exam Overall: external auditory canals clear 02/23/2016 None Full Exam - General 1994 Ears/Nose/Throat otoscopic exam Overall: tympanic membranes clear 02/23/2016 None Full Exam - General 1994 Ears/Nose/Throat oral cavity/pharynx/larynx Overall: oral mucosa clear 02/23/2016 None Full Exam - General 1994 Ears/Nose/Throat oral cavity/pharynx/larynx Overall: oropharyngeal mucosa clear 02/23/2016 None Full Exam - General 1994 Ears/Nose/Throat oral cavity/pharynx/larynx Overall: no masses 02/23/2016 None Full Exam - General 1994 Respiratory auscultation Overall: breath sounds clear bilaterally 02/23/2016 None Full Exam - General 1994 Respiratory respiratory effort/rhythm Overall: no retractions 02/23/2016 None Full Exam - General 1994 Respiratory respiratory effort/rhythm Overall: normal rate 02/23/2016 None Full Exam - General 1994 Cardiovascular auscultation of heart Overall: regular rate 02/23/2016 None Full Exam - General 1994 Cardiovascular auscultation of heart Overall: normal heart sounds 02/23/2016 None Full Exam - General 1994 Cardiovascular auscultation of heart Overall: no murmurs 02/23/2016 None Full Exam - General 1994 Abdomen abdominal exam Overall: no tenderness 02/23/2016 None Full Exam - General 1994 Abdomen abdominal exam Overall: normal bowel sounds 02/23/2016 None Full Exam - General 1994 Abdomen abdominal exam Contour: rounded 02/23/2016 None Full Exam - General 1994 Musculoskeletal digits and nails Overall: no clubbing 02/23/2016 None Full Exam - General 1994 Musculoskeletal digits and nails Overall: digits benign 02/23/2016 None Full Exam - General 1994 Musculoskeletal spine, ribs and pelvis Overall: sacroiliac joint benign 02/23/2016 None Full Exam - General 1994 Musculoskeletal gait and station Overall: normal gait 02/23/2016 None Full Exam - General 1994 Musculoskeletal gait and station Overall: normal station 02/23/2016 None Full Exam - General 1994 Neurologic gait Overall: no ataxia, no unsteadiness 02/23/2016 None Full Exam - General 1994 Psychiatric orientation/consciousness Overall: oriented to person, place and time 02/23/2016 None Full Exam - General 1994 Psychiatric mood and affect Overall: normal mood and affect 02/23/2016 None Full Exam - General 1994 Musculoskeletal spine, ribs and pelvis Posture: lordosis 02/23/2016 None Full Exam - General 1994 Constitutional general appearance Overall: well developed 12/10/2015 None Full Exam - General 1994 Constitutional general appearance Overall: in no acute distress 12/10/2015 None Full Exam - General 1994 Constitutional general appearance Overall: well nourished 12/10/2015 None Full Exam - General 1994 Eyes pupils and irises Overall: pupils equal, round, reactive to light and accomodation 12/10/2015 None Full Exam - General 1994 Ears/Nose/Throat otoscopic exam Overall: external auditory canals clear 12/10/2015 None Full Exam - General 1994 Ears/Nose/Throat otoscopic exam Overall: tympanic membranes clear 12/10/2015 None Full Exam - General 1994 Ears/Nose/Throat oral cavity/pharynx/larynx Overall: oral mucosa clear 12/10/2015 None Full Exam - General 1994 Ears/Nose/Throat oral cavity/pharynx/larynx Overall: oropharyngeal mucosa clear 12/10/2015 None Full Exam - General 1994 Ears/Nose/Throat oral cavity/pharynx/larynx Overall: no masses 12/10/2015 None Full Exam - General 1994 Respiratory auscultation Overall: breath sounds clear bilaterally 12/10/2015 None Full Exam - General 1994 Respiratory respiratory effort/rhythm Overall: no retractions 12/10/2015 None Full Exam - General 1994 Respiratory respiratory effort/rhythm Overall: normal rate 12/10/2015 None Full Exam - General 1994 Cardiovascular auscultation of heart Overall: regular rate 12/10/2015 None Full Exam - General 1994 Cardiovascular auscultation of heart Overall: normal heart sounds 12/10/2015 None Full Exam - General 1994 Cardiovascular auscultation of heart Overall: no murmurs 12/10/2015 None Full Exam - General 1994 Abdomen abdominal exam Overall: no tenderness 12/10/2015 None Full Exam - General 1994 Abdomen abdominal exam Overall: normal bowel sounds 12/10/2015 None Full Exam - General 1994 Abdomen abdominal exam Contour: rounded 12/10/2015 None Full Exam - General 1994 Musculoskeletal digits and nails Overall: no clubbing 12/10/2015 None Full Exam - General 1994 Musculoskeletal digits and nails Overall: digits benign 12/10/2015 None Full Exam - General 1994 Musculoskeletal spine, ribs and pelvis Overall: spine benign 12/10/2015 None Full Exam - General 1994 Musculoskeletal spine, ribs and pelvis Overall: sacroiliac joint benign 12/10/2015 None Full Exam - General 1994 Musculoskeletal spine, ribs and pelvis Overall: good posture 12/10/2015 None Full Exam - General 1994 Musculoskeletal gait and station Overall: normal gait 12/10/2015 None Full Exam - General 1994 Musculoskeletal gait and station Overall: normal station 12/10/2015 None Full Exam - General 1994 Neurologic gait Overall: no ataxia, no unsteadiness 12/10/2015 None Full Exam - General 1994 Psychiatric orientation/consciousness Overall: oriented to person, place and time 12/10/2015 None Full Exam - General 1994 Psychiatric mood and affect Overall: normal mood and affect 12/10/2015 None Full Exam - General 1994 Constitutional general appearance Overall: well developed 11/10/2015 None Full Exam - General 1994 Constitutional general appearance Overall: in no acute distress 11/10/2015 None Full Exam - General 1994 Constitutional general appearance Overall: well nourished 11/10/2015 None Full Exam - General 1994 Eyes pupils and irises Overall: pupils equal, round, reactive to light and accomodation 11/10/2015 None Full Exam - General 1994 Ears/Nose/Throat otoscopic exam Overall: external auditory canals clear 11/10/2015 None Full Exam - General 1994 Ears/Nose/Throat otoscopic exam Overall: tympanic membranes clear 11/10/2015 None Full Exam - General 1994 Ears/Nose/Throat oral cavity/pharynx/larynx Overall: oral mucosa clear 11/10/2015 None Full Exam - General 1994 Ears/Nose/Throat oral cavity/pharynx/larynx Overall: oropharyngeal mucosa clear 11/10/2015 None Full Exam - General 1994 Ears/Nose/Throat oral cavity/pharynx/larynx Overall: no masses 11/10/2015 None Full Exam - General 1994 Respiratory auscultation Overall: breath sounds clear bilaterally 11/10/2015 None Full Exam - General 1994 Respiratory respiratory effort/rhythm Overall: no retractions 11/10/2015 None Full Exam - General 1994 Respiratory respiratory effort/rhythm Overall: normal rate 11/10/2015 None Full Exam - General 1994 Cardiovascular auscultation of heart Overall: regular rate 11/10/2015 None Full Exam - General 1994 Cardiovascular auscultation of heart Overall: normal heart sounds 11/10/2015 None Full Exam - General 1994 Cardiovascular auscultation of heart Overall: no murmurs 11/10/2015 None Full Exam - General 1994 Abdomen abdominal exam Overall: no tenderness 11/10/2015 None Full Exam - General 1994 Abdomen abdominal exam Overall: normal bowel sounds 11/10/2015 None Full Exam - General 1994 Abdomen abdominal exam Contour: rounded 11/10/2015 None Full Exam - General 1994 Musculoskeletal digits and nails Overall: no clubbing 11/10/2015 None Full Exam - General 1994 Musculoskeletal digits and nails Overall: digits benign 11/10/2015 None Full Exam - General 1994 Musculoskeletal spine, ribs and pelvis Overall: spine benign 11/10/2015 None Full Exam - General 1994 Musculoskeletal spine, ribs and pelvis Overall: sacroiliac joint benign 11/10/2015 None Full Exam - General 1994 Musculoskeletal spine, ribs and pelvis Overall: good posture 11/10/2015 None Full Exam - General 1994 Musculoskeletal gait and station Overall: normal gait 11/10/2015 None Full Exam - General 1994 Musculoskeletal gait and station Overall: normal station 11/10/2015 None Full Exam - General 1994 Neurologic gait Overall: no ataxia, no unsteadiness 11/10/2015 None Full Exam - General 1994 Psychiatric orientation/consciousness Overall: oriented to person, place and time 11/10/2015 None Full Exam - General 1994 Psychiatric mood and affect Overall: normal mood and affect 11/10/2015 None Full Exam - General 1994 Constitutional general appearance Overall: well developed 08/07/2015 None Full Exam - General 1994 Constitutional general appearance Overall: in no acute distress 08/07/2015 None Full Exam - General 1994 Constitutional general appearance Overall: well nourished 08/07/2015 None Full Exam - General 1994 Eyes pupils and irises Overall: pupils equal, round, reactive to light and accomodation 08/07/2015 None Full Exam - General 1994 Ears/Nose/Throat otoscopic exam Overall: external auditory canals clear 08/07/2015 None Full Exam - General 1994 Ears/Nose/Throat otoscopic exam Overall: tympanic membranes clear 08/07/2015 None Full Exam - General 1994 Ears/Nose/Throat oral cavity/pharynx/larynx Overall: oral mucosa clear 08/07/2015 None Full Exam - General 1994 Ears/Nose/Throat oral cavity/pharynx/larynx Overall: oropharyngeal mucosa clear 08/07/2015 None Full Exam - General 1994 Ears/Nose/Throat oral cavity/pharynx/larynx Overall: no masses 08/07/2015 None Full Exam - General 1994 Respiratory auscultation Overall: breath sounds clear bilaterally 08/07/2015 None Full Exam - General 1994 Respiratory respiratory effort/rhythm Overall: no retractions 08/07/2015 None Full Exam - General 1994 Respiratory respiratory effort/rhythm Overall: normal rate 08/07/2015 None Full Exam - General 1994 Cardiovascular auscultation of heart Overall: regular rate 08/07/2015 None Full Exam - General 1994 Cardiovascular auscultation of heart Overall: normal heart sounds 08/07/2015 None Full Exam - General 1994 Cardiovascular auscultation of heart Overall: no murmurs 08/07/2015 None Full Exam - General 1994 Abdomen abdominal exam Overall: no tenderness 08/07/2015 None Full Exam - General 1994 Abdomen abdominal exam Overall: normal bowel sounds 08/07/2015 None Full Exam - General 1994 Abdomen abdominal exam Contour: rounded 08/07/2015 None Full Exam - General 1994 Musculoskeletal digits and nails Overall: no clubbing 08/07/2015 None Full Exam - General 1994 Musculoskeletal digits and nails Overall: digits benign 08/07/2015 None Full Exam - General 1994 Musculoskeletal spine, ribs and pelvis Overall: spine benign 08/07/2015 None Full Exam - General 1994 Musculoskeletal spine, ribs and pelvis Overall: sacroiliac joint benign 08/07/2015 None Full Exam - General 1994 Musculoskeletal spine, ribs and pelvis Overall: good posture 08/07/2015 None Full Exam - General 1994 Musculoskeletal gait and station Overall: normal gait 08/07/2015 None Full Exam - General 1994 Musculoskeletal gait and station Overall: normal station 08/07/2015 None Full Exam - General 1994 Neurologic gait Overall: no ataxia, no unsteadiness 08/07/2015 None Full Exam - General 1994 Psychiatric orientation/consciousness Overall: oriented to person, place and time 08/07/2015 None Full Exam - General 1994 Psychiatric mood and affect Overall: normal mood and affect 08/07/2015 None Full Exam - General 1994 Constitutional general appearance Overall: well developed 07/07/2015 None Full Exam - General 1994 Constitutional general appearance Overall: in no acute distress 07/07/2015 None Full Exam - General 1994 Constitutional general appearance Overall: well nourished 07/07/2015 None Full Exam - General 1994 Eyes pupils and irises Overall: pupils equal, round, reactive to light and accomodation 07/07/2015 None Full Exam - General 1994 Ears/Nose/Throat otoscopic exam Overall: external auditory canals clear 07/07/2015 None Full Exam - General 1994 Ears/Nose/Throat otoscopic exam Overall: tympanic membranes clear 07/07/2015 None Full Exam - General 1994 Ears/Nose/Throat oral cavity/pharynx/larynx Overall: oral mucosa clear 07/07/2015 None Full Exam - General 1994 Ears/Nose/Throat oral cavity/pharynx/larynx Overall: oropharyngeal mucosa clear 07/07/2015 None Full Exam - General 1994 Ears/Nose/Throat oral cavity/pharynx/larynx Overall: no masses 07/07/2015 None Full Exam - General 1994 Respiratory auscultation Overall: breath sounds clear bilaterally 07/07/2015 None Full Exam - General 1994 Respiratory respiratory effort/rhythm Overall: no retractions 07/07/2015 None Full Exam - General 1994 Respiratory respiratory effort/rhythm Overall: normal rate 07/07/2015 None Full Exam - General 1994 Cardiovascular auscultation of heart Overall: regular rate 07/07/2015 None Full Exam - General 1994 Cardiovascular auscultation of heart Overall: normal heart sounds 07/07/2015 None Full Exam - General 1994 Cardiovascular auscultation of heart Overall: no murmurs 07/07/2015 None Full Exam - General 1994 Abdomen abdominal exam Overall: no tenderness 07/07/2015 None Full Exam - General 1994 Abdomen abdominal exam Overall: normal bowel sounds 07/07/2015 None Full Exam - General 1994 Abdomen abdominal exam Contour: rounded 07/07/2015 None Full Exam - General 1994 Musculoskeletal digits and nails Overall: no clubbing 07/07/2015 None Full Exam - General 1994 Musculoskeletal digits and nails Overall: digits benign 07/07/2015 None Full Exam - General 1994 Musculoskeletal spine, ribs and pelvis Overall: spine benign 07/07/2015 None Full Exam - General 1994 Musculoskeletal spine, ribs and pelvis Overall: sacroiliac joint benign 07/07/2015 None Full Exam - General 1994 Musculoskeletal spine, ribs and pelvis Overall: good posture 07/07/2015 None Full Exam - General 1994 Musculoskeletal gait and station Overall: normal gait 07/07/2015 None Full Exam - General 1994 Musculoskeletal gait and station Overall: normal station 07/07/2015 None Full Exam - General 1994 Neurologic gait Overall: no ataxia, no unsteadiness 07/07/2015 None Full Exam - General 1994 Psychiatric orientation/consciousness Overall: oriented to person, place and time 07/07/2015 None Full Exam - General 1994 Psychiatric mood and affect Overall: normal mood and affect 07/07/2015 None Full Exam - General 1994 Constitutional general appearance Overall: well developed 04/02/2015 None Full Exam - General 1994 Constitutional general appearance Overall: in no acute distress 04/02/2015 None Full Exam - General 1994 Constitutional general appearance Overall: well nourished 04/02/2015 None Full Exam - General 1994 Constitutional general appearance Hygiene/Attention to Grooming: good hygiene 04/02/2015 None Full Exam - General 1994 Eyes pupils and irises Overall: pupils equal, round, reactive to light and accomodation 04/02/2015 None Full Exam - General 1994 Ears/Nose/Throat otoscopic exam Overall: external auditory canals clear 04/02/2015 None Full Exam - General 1994 Ears/Nose/Throat otoscopic exam Overall: tympanic membranes clear 04/02/2015 None Full Exam - General 1994 Ears/Nose/Throat oral cavity/pharynx/larynx Overall: oral mucosa clear 04/02/2015 None Full Exam - General 1994 Ears/Nose/Throat oral cavity/pharynx/larynx Overall: oropharyngeal mucosa clear 04/02/2015 None Full Exam - General 1994 Ears/Nose/Throat oral cavity/pharynx/larynx Overall: no masses 04/02/2015 None Full Exam - General 1994 Respiratory auscultation Overall: breath sounds clear bilaterally 04/02/2015 None Full Exam - General 1994 Respiratory respiratory effort/rhythm Overall: no retractions 04/02/2015 None Full Exam - General 1994 Respiratory respiratory effort/rhythm Overall: normal rate 04/02/2015 None Full Exam - General 1994 Cardiovascular auscultation of heart Overall: regular rate 04/02/2015 None Full Exam - General 1994 Cardiovascular auscultation of heart Overall: normal heart sounds 04/02/2015 None Full Exam - General 1994 Abdomen abdominal exam Overall: no tenderness 04/02/2015 None Full Exam - General 1994 Abdomen abdominal exam Overall: normal bowel sounds 04/02/2015 None Full Exam - General 1994 Abdomen abdominal exam Contour: rounded 04/02/2015 None Full Exam - General 1994 Neurologic gait Overall: no ataxia, no unsteadiness 04/02/2015 None Full Exam - General 1994 Psychiatric orientation/consciousness Overall: oriented to person, place and time 04/02/2015 None Full Exam - General 1994 Psychiatric mood and affect Overall: normal mood and affect 04/02/2015 None Full Exam - General 1994 Constitutional general appearance Overall: well developed 12/23/2014 None Full Exam - General 1994 Constitutional general appearance Overall: in no acute distress 12/23/2014 None Full Exam - General 1994 Constitutional general appearance Overall: well nourished 12/23/2014 None Full Exam - General 1994 Eyes pupils and irises Overall: pupils equal, round, reactive to light and accomodation 12/23/2014 None Full Exam - General 1994 Ears/Nose/Throat otoscopic exam Overall: external auditory canals clear 12/23/2014 None Full Exam - General 1994 Ears/Nose/Throat otoscopic exam Overall: tympanic membranes clear 12/23/2014 None Full Exam - General 1994 Ears/Nose/Throat oral cavity/pharynx/larynx Overall: oral mucosa clear 12/23/2014 None Full Exam - General 1994 Ears/Nose/Throat oral cavity/pharynx/larynx Overall: oropharyngeal mucosa clear 12/23/2014 None Full Exam - General 1994 Ears/Nose/Throat oral cavity/pharynx/larynx Overall: no masses 12/23/2014 None Full Exam - General 1994 Respiratory auscultation Overall: breath sounds clear bilaterally 12/23/2014 None Full Exam - General 1994 Respiratory respiratory effort/rhythm Overall: no retractions 12/23/2014 None Full Exam - General 1994 Respiratory respiratory effort/rhythm Overall: normal rate 12/23/2014 None Full Exam - General 1994 Cardiovascular auscultation of heart Overall: regular rate 12/23/2014 None Full Exam - General 1994 Cardiovascular auscultation of heart Overall: normal heart sounds 12/23/2014 None Full Exam - General 1994 Cardiovascular auscultation of heart Overall: no murmurs 12/23/2014 None Full Exam - General 1994 Abdomen abdominal exam Overall: no tenderness 12/23/2014 None Full Exam - General 1994 Abdomen abdominal exam Overall: normal bowel sounds 12/23/2014 None Full Exam - General 1994 Abdomen abdominal exam Contour: rounded 12/23/2014 None Full Exam - General 1994 Musculoskeletal digits and nails Overall: no clubbing 12/23/2014 None Full Exam - General 1994 Musculoskeletal digits and nails Overall: digits benign 12/23/2014 None Full Exam - General 1994 Musculoskeletal spine, ribs and pelvis Overall: spine benign 12/23/2014 None Full Exam - General 1994 Musculoskeletal spine, ribs and pelvis Overall: sacroiliac joint benign 12/23/2014 None Full Exam - General 1994 Musculoskeletal spine, ribs and pelvis Overall: good posture 12/23/2014 None Full Exam - General 1994 Musculoskeletal gait and station Overall: normal gait 12/23/2014 None Full Exam - General 1994 Musculoskeletal gait and station Overall: normal station 12/23/2014 None Full Exam - General 1994 Neurologic gait Overall: no ataxia, no unsteadiness 12/23/2014 None Full Exam - General 1994 Psychiatric orientation/consciousness Overall: oriented to person, place and time 12/23/2014 None Full Exam - General 1994 Psychiatric mood and affect Overall: normal mood and affect 12/23/2014 None Full Exam - General 1994 Constitutional general appearance Overall: well developed 10/22/2014 None Full Exam - General 1994 Constitutional general appearance Overall: in no acute distress 10/22/2014 None Full Exam - General 1994 Constitutional general appearance Overall: well nourished 10/22/2014 None Full Exam - General 1994 Eyes pupils and irises Overall: pupils equal, round, reactive to light and accomodation 10/22/2014 None Full Exam - General 1994 Ears/Nose/Throat otoscopic exam Overall: external auditory canals clear 10/22/2014 None Full Exam - General 1994 Ears/Nose/Throat otoscopic exam Overall: tympanic membranes clear 10/22/2014 None Full Exam - General 1994 Ears/Nose/Throat oral cavity/pharynx/larynx Overall: oral mucosa clear 10/22/2014 None Full Exam - General 1994 Ears/Nose/Throat oral cavity/pharynx/larynx Overall: oropharyngeal mucosa clear 10/22/2014 None Full Exam - General 1994 Ears/Nose/Throat oral cavity/pharynx/larynx Overall: no masses 10/22/2014 None Full Exam - General 1994 Respiratory auscultation Overall: breath sounds clear bilaterally 10/22/2014 None Full Exam - General 1994 Respiratory respiratory effort/rhythm Overall: no retractions 10/22/2014 None Full Exam - General 1994 Respiratory respiratory effort/rhythm Overall: normal rate 10/22/2014 None Full Exam - General 1994 Cardiovascular auscultation of heart Overall: regular rate 10/22/2014 None Full Exam - General 1994 Cardiovascular auscultation of heart Overall: normal heart sounds 10/22/2014 None Full Exam - General 1994 Cardiovascular auscultation of heart Overall: no murmurs 10/22/2014 None Full Exam - General 1994 Abdomen abdominal exam Overall: no tenderness 10/22/2014 None Full Exam - General 1994 Abdomen abdominal exam Overall: normal bowel sounds 10/22/2014 None Full Exam - General 1994 Abdomen abdominal exam Contour: rounded 10/22/2014 None Full Exam - General 1994 Musculoskeletal digits and nails Overall: no clubbing 10/22/2014 None Full Exam - General 1994 Musculoskeletal digits and nails Overall: digits benign 10/22/2014 None Full Exam - General 1994 Musculoskeletal spine, ribs and pelvis Overall: spine benign 10/22/2014 None Full Exam - General 1994 Musculoskeletal spine, ribs and pelvis Overall: sacroiliac joint benign 10/22/2014 None Full Exam - General 1994 Musculoskeletal spine, ribs and pelvis Overall: good posture 10/22/2014 None Full Exam - General 1994 Musculoskeletal gait and station Overall: normal gait 10/22/2014 None Full Exam - General 1994 Musculoskeletal gait and station Overall: normal station 10/22/2014 None Full Exam - General 1994 Neurologic gait Overall: no ataxia, no unsteadiness 10/22/2014 None Full Exam - General 1994 Psychiatric orientation/consciousness Overall: oriented to person, place and time 10/22/2014 None Full Exam - General 1994 Psychiatric mood and affect Overall: normal mood and affect 10/22/2014 None Full Exam - General 1994 Constitutional general appearance Overall: well developed 09/26/2014 None Full Exam - General 1994 Constitutional general appearance Overall: in no acute distress 09/26/2014 None Full Exam - General 1994 Constitutional general appearance Overall: well nourished 09/26/2014 None Full Exam - General 1994 Eyes pupils and irises Overall: pupils equal, round, reactive to light and accomodation 09/26/2014 None Full Exam - General 1994 Ears/Nose/Throat oral cavity/pharynx/larynx Overall: oral mucosa clear 09/26/2014 None Full Exam - General 1994 Ears/Nose/Throat oral cavity/pharynx/larynx Overall: no masses 09/26/2014 None Full Exam - General 1994 Respiratory respiratory effort/rhythm Overall: no retractions 09/26/2014 None Full Exam - General 1994 Respiratory respiratory effort/rhythm Overall: normal rate 09/26/2014 None Full Exam - General 1994 Cardiovascular auscultation of heart Overall: regular rate 09/26/2014 None Full Exam - General 1994 Cardiovascular auscultation of heart Overall: normal heart sounds 09/26/2014 None Full Exam - General 1994 Cardiovascular auscultation of heart Overall: no murmurs 09/26/2014 None Full Exam - General 1994 Musculoskeletal digits and nails Overall: no clubbing 09/26/2014 None Full Exam - General 1994 Musculoskeletal digits and nails Overall: digits benign 09/26/2014 None Full Exam - General 1994 Musculoskeletal spine, ribs and pelvis Overall: good posture 09/26/2014 None Full Exam - General 1994 Musculoskeletal gait and station Overall: normal gait 09/26/2014 None Full Exam - General 1994 Musculoskeletal gait and station Overall: normal station 09/26/2014 None Full Exam - General 1994 Psychiatric orientation/consciousness Overall: oriented to person, place and time 09/26/2014 None Full Exam - General 1994 Psychiatric mood and affect Overall: normal mood and affect 09/26/2014 None Full Exam - General 1994 Ears/Nose/Throat otoscopic exam Overall: tympanic membranes clear 09/26/2014 None Full Exam - General 1994 Ears/Nose/Throat otoscopic exam Overall: external auditory canals clear 09/26/2014 None Full Exam - General 1994 Respiratory auscultation Overall: breath sounds clear bilaterally 09/26/2014 None Full Exam - General 1994 Lymphatic neck nodes Overall: anterior cervical chain benign 09/26/2014 None Full Exam - General 1994 Lymphatic neck nodes Overall: posterior cervical chain benign 09/26/2014 None Full Exam - General 1994 Constitutional general appearance Overall: well developed 07/01/2014 None Full Exam - General 1994 Constitutional general appearance Overall: in no acute distress 07/01/2014 None Full Exam - General 1994 Constitutional general appearance Overall: well nourished 07/01/2014 None Full Exam - General 1994 Eyes pupils and irises Overall: pupils equal, round, reactive to light and accomodation 07/01/2014 None Full Exam - General 1994 Ears/Nose/Throat otoscopic exam Overall: external auditory canals clear 07/01/2014 None Full Exam - General 1994 Ears/Nose/Throat otoscopic exam Overall: tympanic membranes clear 07/01/2014 None Full Exam - General 1994 Ears/Nose/Throat oral cavity/pharynx/larynx Overall: oral mucosa clear 07/01/2014 None Full Exam - General 1994 Ears/Nose/Throat oral cavity/pharynx/larynx Overall: oropharyngeal mucosa clear 07/01/2014 None Full Exam - General 1994 Ears/Nose/Throat oral cavity/pharynx/larynx Overall: no masses 07/01/2014 None Full Exam - General 1994 Respiratory auscultation Overall: breath sounds clear bilaterally 07/01/2014 None Full Exam - General 1994 Respiratory respiratory effort/rhythm Overall: no retractions 07/01/2014 None Full Exam - General 1994 Respiratory respiratory effort/rhythm Overall: normal rate 07/01/2014 None Full Exam - General 1994 Cardiovascular auscultation of heart Overall: regular rate 07/01/2014 None Full Exam - General 1994 Cardiovascular auscultation of heart Overall: normal heart sounds 07/01/2014 None Full Exam - General 1994 Cardiovascular auscultation of heart Overall: no murmurs 07/01/2014 None Full Exam - General 1994 Abdomen abdominal exam Overall: no tenderness 07/01/2014 None Full Exam - General 1994 Abdomen abdominal exam Overall: normal bowel sounds 07/01/2014 None Full Exam - General 1994 Abdomen abdominal exam Contour: rounded 07/01/2014 None Full Exam - General 1994 Musculoskeletal digits and nails Overall: no clubbing 07/01/2014 None Full Exam - General 1994 Musculoskeletal digits and nails Overall: digits benign 07/01/2014 None Full Exam - General 1994 Musculoskeletal spine, ribs and pelvis Overall: spine benign 07/01/2014 None Full Exam - General 1994 Musculoskeletal spine, ribs and pelvis Overall: sacroiliac joint benign 07/01/2014 None Full Exam - General 1994 Musculoskeletal spine, ribs and pelvis Overall: good posture 07/01/2014 None Full Exam - General 1994 Musculoskeletal gait and station Overall: normal gait 07/01/2014 None Full Exam - General 1994 Musculoskeletal gait and station Overall: normal station 07/01/2014 None Full Exam - General 1994 Neurologic gait Overall: no ataxia, no unsteadiness 07/01/2014 None Full Exam - General 1994 Psychiatric orientation/consciousness Overall: oriented to person, place and time 07/01/2014 None Full Exam - General 1994 Psychiatric mood and affect Overall: normal mood and affect 07/01/2014 None Full Exam - General 1994 Constitutional general appearance Overall: well developed 06/09/2014 None Full Exam - General 1994 Constitutional general appearance Overall: in no acute distress 06/09/2014 None Full Exam - General 1994 Constitutional general appearance Overall: well nourished 06/09/2014 None Full Exam - General 1994 Eyes pupils and irises Overall: pupils equal, round, reactive to light and accomodation 06/09/2014 None Full Exam - General 1994 Ears/Nose/Throat otoscopic exam Overall: external auditory canals clear 06/09/2014 None Full Exam - General 1994 Ears/Nose/Throat otoscopic exam Overall: tympanic membranes clear 06/09/2014 None Full Exam - General 1994 Ears/Nose/Throat oral cavity/pharynx/larynx Overall: oral mucosa clear 06/09/2014 None Full Exam - General 1994 Ears/Nose/Throat oral cavity/pharynx/larynx Overall: oropharyngeal mucosa clear 06/09/2014 None Full Exam - General 1994 Ears/Nose/Throat oral cavity/pharynx/larynx Overall: no masses 06/09/2014 None Full Exam - General 1994 Respiratory auscultation Overall: breath sounds clear bilaterally 06/09/2014 None Full Exam - General 1994 Respiratory respiratory effort/rhythm Overall: no retractions 06/09/2014 None Full Exam - General 1994 Respiratory respiratory effort/rhythm Overall: normal rate 06/09/2014 None Full Exam - General 1994 Cardiovascular auscultation of heart Overall: regular rate 06/09/2014 None Full Exam - General 1994 Cardiovascular auscultation of heart Overall: normal heart sounds 06/09/2014 None Full Exam - General 1994 Cardiovascular auscultation of heart Overall: no murmurs 06/09/2014 None Full Exam - General 1994 Abdomen abdominal exam Overall: no tenderness 06/09/2014 None Full Exam - General 1994 Abdomen abdominal exam Overall: normal bowel sounds 06/09/2014 None Full Exam - General 1994 Abdomen abdominal exam Contour: rounded 06/09/2014 None Full Exam - General 1994 Musculoskeletal digits and nails Overall: no clubbing 06/09/2014 None Full Exam - General 1994 Musculoskeletal digits and nails Overall: digits benign 06/09/2014 None Full Exam - General 1994 Musculoskeletal spine, ribs and pelvis Overall: spine benign 06/09/2014 None Full Exam - General 1994 Musculoskeletal spine, ribs and pelvis Overall: sacroiliac joint benign 06/09/2014 None Full Exam - General 1994 Musculoskeletal spine, ribs and pelvis Overall: good posture 06/09/2014 None Full Exam - General 1994 Musculoskeletal gait and station Overall: normal gait 06/09/2014 None Full Exam - General 1994 Musculoskeletal gait and station Overall: normal station 06/09/2014 None Full Exam - General 1994 Neurologic gait Overall: no ataxia, no unsteadiness 06/09/2014 None Full Exam - General 1994 Psychiatric orientation/consciousness Overall: oriented to person, place and time 06/09/2014 None Full Exam - General 1994 Psychiatric mood and affect Overall: normal mood and affect 06/09/2014 None Full Exam - General 1994 Constitutional general appearance Overall: well developed 05/07/2014 None Full Exam - General 1994 Constitutional general appearance Overall: in no acute distress 05/07/2014 None Full Exam - General 1994 Constitutional general appearance Overall: well nourished 05/07/2014 None Full Exam - General 1994 Eyes pupils and irises Overall: pupils equal, round, reactive to light and accomodation 05/07/2014 None Full Exam - General 1994 Ears/Nose/Throat otoscopic exam Overall: external auditory canals clear 05/07/2014 None Full Exam - General 1994 Ears/Nose/Throat otoscopic exam Overall: tympanic membranes clear 05/07/2014 None Full Exam - General 1994 Ears/Nose/Throat oral cavity/pharynx/larynx Overall: oral mucosa clear 05/07/2014 None Full Exam - General 1994 Ears/Nose/Throat oral cavity/pharynx/larynx Overall: oropharyngeal mucosa clear 05/07/2014 None Full Exam - General 1994 Ears/Nose/Throat oral cavity/pharynx/larynx Overall: no masses 05/07/2014 None Full Exam - General 1994 Respiratory auscultation Overall: breath sounds clear bilaterally 05/07/2014 None Full Exam - General 1994 Respiratory respiratory effort/rhythm Overall: no retractions 05/07/2014 None Full Exam - General 1994 Respiratory respiratory effort/rhythm Overall: normal rate 05/07/2014 None Full Exam - General 1994 Cardiovascular auscultation of heart Overall: regular rate 05/07/2014 None Full Exam - General 1994 Cardiovascular auscultation of heart Overall: normal heart sounds 05/07/2014 None Full Exam - General 1994 Cardiovascular auscultation of heart Overall: no murmurs 05/07/2014 None Full Exam - General 1994 Abdomen abdominal exam Overall: no tenderness 05/07/2014 None Full Exam - General 1994 Abdomen abdominal exam Overall: normal bowel sounds 05/07/2014 None Full Exam - General 1994 Abdomen abdominal exam Contour: rounded 05/07/2014 None Full Exam - General 1994 Musculoskeletal digits and nails Overall: no clubbing 05/07/2014 None Full Exam - General 1994 Musculoskeletal digits and nails Overall: digits benign 05/07/2014 None Full Exam - General 1994 Musculoskeletal spine, ribs and pelvis Overall: spine benign 05/07/2014 None Full Exam - General 1994 Musculoskeletal spine, ribs and pelvis Overall: sacroiliac joint benign 05/07/2014 None Full Exam - General 1994 Musculoskeletal spine, ribs and pelvis Overall: good posture 05/07/2014 None Full Exam - General 1994 Musculoskeletal gait and station Overall: normal gait 05/07/2014 None Full Exam - General 1994 Musculoskeletal gait and station Overall: normal station 05/07/2014 None Full Exam - General 1994 Neurologic gait Overall: no ataxia, no unsteadiness 05/07/2014 None Full Exam - General 1994 Psychiatric orientation/consciousness Overall: oriented to person, place and time 05/07/2014 None Full Exam - General 1994 Psychiatric mood and affect Overall: normal mood and affect 05/07/2014 None Full Exam - General 1994 Constitutional general appearance Overall: well developed 04/21/2014 None Full Exam - General 1994 Constitutional general appearance Overall: well nourished 04/21/2014 None Full Exam - General 1994 Eyes pupils and irises Overall: pupils equal, round, reactive to light and accomodation 04/21/2014 None Full Exam - General 1994 Ears/Nose/Throat otoscopic exam Overall: external auditory canals clear 04/21/2014 None Full Exam - General 1994 Ears/Nose/Throat otoscopic exam Overall: tympanic membranes clear 04/21/2014 None Full Exam - General 1994 Ears/Nose/Throat oral cavity/pharynx/larynx Overall: oropharyngeal mucosa clear 04/21/2014 None Full Exam - General 1994 Ears/Nose/Throat oral cavity/pharynx/larynx Overall: no masses 04/21/2014 None Full Exam - General 1994 Respiratory auscultation Overall: breath sounds clear bilaterally 04/21/2014 None Full Exam - General 1994 Respiratory respiratory effort/rhythm Overall: no retractions 04/21/2014 None Full Exam - General 1994 Respiratory respiratory effort/rhythm Overall: normal rate 04/21/2014 None Full Exam - General 1994 Cardiovascular auscultation of heart Overall: regular rate 04/21/2014 None Full Exam - General 1994 Cardiovascular auscultation of heart Overall: normal heart sounds 04/21/2014 None Full Exam - General 1994 Cardiovascular auscultation of heart Overall: no murmurs 04/21/2014 None Full Exam - General 1994 Abdomen abdominal exam Overall: no tenderness 04/21/2014 None Full Exam - General 1994 Abdomen abdominal exam Overall: normal bowel sounds 04/21/2014 None Full Exam - General 1994 Abdomen abdominal exam Contour: rounded 04/21/2014 None Full Exam - General 1994 Musculoskeletal digits and nails Overall: no clubbing 04/21/2014 None Full Exam - General 1994 Musculoskeletal digits and nails Overall: digits benign 04/21/2014 None Full Exam - General 1994 Musculoskeletal spine, ribs and pelvis Overall: spine benign 04/21/2014 None Full Exam - General 1994 Musculoskeletal spine, ribs and pelvis Overall: sacroiliac joint benign 04/21/2014 None Full Exam - General 1994 Musculoskeletal spine, ribs and pelvis Overall: good posture 04/21/2014 None Full Exam - General 1994 Musculoskeletal gait and station Overall: normal gait 04/21/2014 None Full Exam - General 1994 Musculoskeletal gait and station Overall: normal station 04/21/2014 None Full Exam - General 1994 Neurologic gait Overall: no ataxia, no unsteadiness 04/21/2014 None Full Exam - General 1994 Psychiatric orientation/consciousness Overall: oriented to person, place and time 04/21/2014 None Full Exam - General 1994 Psychiatric mood and affect Overall: normal mood and affect 04/21/2014 None Full Exam - General 1994 Constitutional general appearance Hygiene/Attention to Grooming: good hygiene 04/21/2014 None Full Exam - General 1994 Constitutional general appearance Evidence of Distress: mild distress 04/21/2014 - pt unsteady with walking - Full Exam - General 1994 Ears/Nose/Throat oral cavity/pharynx/larynx Overall: oral mucosa clear 04/21/2014 but dry Full Exam - General 1994 Cardiovascular extremities Edema present: pitting 04/21/2014 None Full Exam - General 1994 Cardiovascular extremities Edema present: severity 1+ - 4+: 2+ 04/21/2014 None Full Exam - General 1994 Cardiovascular extremities Edema present: bilateral 04/21/2014 None Full Exam - General 1994 Integument inspection of skin Overall: few scattered moles, no gross abnormalities 04/21/2014 None Full Exam - General 1994 Constitutional general appearance Overall: well developed 02/14/2014 None Full Exam - General 1994 Constitutional general appearance Overall: in no acute distress 02/14/2014 None Full Exam - General 1994 Constitutional general appearance Overall: well nourished 02/14/2014 None Full Exam - General 1994 Eyes pupils and irises Overall: pupils equal, round, reactive to light and accomodation 02/14/2014 None Full Exam - General 1994 Ears/Nose/Throat otoscopic exam Overall: external auditory canals clear 02/14/2014 None Full Exam - General 1994 Ears/Nose/Throat otoscopic exam Overall: tympanic membranes clear 02/14/2014 None Full Exam - General 1994 Ears/Nose/Throat oral cavity/pharynx/larynx Overall: oral mucosa clear 02/14/2014 None Full Exam - General 1994 Ears/Nose/Throat oral cavity/pharynx/larynx Overall: oropharyngeal mucosa clear 02/14/2014 None Full Exam - General 1994 Ears/Nose/Throat oral cavity/pharynx/larynx Overall: no masses 02/14/2014 None Full Exam - General 1994 Respiratory auscultation Overall: breath sounds clear bilaterally 02/14/2014 None Full Exam - General 1994 Respiratory respiratory effort/rhythm Overall: no retractions 02/14/2014 None Full Exam - General 1994 Respiratory respiratory effort/rhythm Overall: normal rate 02/14/2014 None Full Exam - General 1994 Cardiovascular auscultation of heart Overall: regular rate 02/14/2014 None Full Exam - General 1994 Cardiovascular auscultation of heart Overall: normal heart sounds 02/14/2014 None Full Exam - General 1994 Cardiovascular auscultation of heart Overall: no murmurs 02/14/2014 None Full Exam - General 1994 Neurologic gait Overall: no ataxia, no unsteadiness 02/14/2014 None Full Exam - General 1994 Psychiatric orientation/consciousness Overall: oriented to person, place and time 02/14/2014 None Full Exam - General 1994 Psychiatric mood and affect Overall: normal mood and affect 02/14/2014 None Full Exam - General 1994 Integument inspection of skin Dermatitis: erythema 02/14/2014 anterior left lower leg/t ibia, healing bite jeff. Full Exam - Cardiology Respiratory auscultation Overall: breath sounds clear bilaterally 01/16/2014 None Full Exam - Cardiology Cardiovascular auscultation of heart Overall: regular rate 01/16/2014 None Full Exam - Cardiology Constitutional general appearance Overall: well nourished 01/16/2014 None Full Exam - Cardiology Constitutional general appearance Overall: well developed 01/16/2014 None Full Exam - Cardiology Constitutional general appearance Overall: in no acute distress 01/16/2014 None Full Exam - Cardiology Psychiatric orientation/consciousness Overall: oriented to person, place and time 01/16/2014 None Full Exam - Cardiology Psychiatric mood and affect Overall: normal mood and affect 01/16/2014 None Full Exam - Cardiology Musculoskeletal gait and station Overall: normal gait 01/16/2014 None Full Exam - Cardiology Musculoskeletal gait and station Overall: normal station 01/16/2014 - upper extremity with t enderness to palpation over the anterior head of biceps bilaterally Full Exam - General 1994 Constitutional general appearance Overall: well developed 11/14/2013 None Full Exam - General 1994 Constitutional general appearance Overall: in no acute distress 11/14/2013 None Full Exam - General 1994 Constitutional general appearance Overall: well nourished 11/14/2013 None Full Exam - General 1994 Eyes pupils and irises Overall: pupils equal, round, reactive to light and accomodation 11/14/2013 None Full Exam - General 1994 Ears/Nose/Throat otoscopic exam Overall: external auditory canals clear 11/14/2013 None Full Exam - General 1994 Ears/Nose/Throat otoscopic exam Overall: tympanic membranes clear 11/14/2013 None Full Exam - General 1994 Ears/Nose/Throat oral cavity/pharynx/larynx Overall: oral mucosa clear 11/14/2013 None Full Exam - General 1994 Ears/Nose/Throat oral cavity/pharynx/larynx Overall: oropharyngeal mucosa clear 11/14/2013 None Full Exam - General 1994 Ears/Nose/Throat oral cavity/pharynx/larynx Overall: no masses 11/14/2013 None Full Exam - General 1994 Respiratory auscultation Overall: breath sounds clear bilaterally 11/14/2013 None Full Exam - General 1994 Respiratory respiratory effort/rhythm Overall: no retractions 11/14/2013 None Full Exam - General 1994 Respiratory respiratory effort/rhythm Overall: normal rate 11/14/2013 None Full Exam - General 1994 Cardiovascular auscultation of heart Overall: regular rate 11/14/2013 None Full Exam - General 1994 Cardiovascular auscultation of heart Overall: normal heart sounds 11/14/2013 None Full Exam - General 1994 Cardiovascular auscultation of heart Overall: no murmurs 11/14/2013 None Full Exam - General 1994 Abdomen abdominal exam Overall: no tenderness 11/14/2013 None Full Exam - General 1994 Abdomen abdominal exam Overall: normal bowel sounds 11/14/2013 None Full Exam - General 1994 Abdomen abdominal exam Contour: rounded 11/14/2013 None Full Exam - General 1994 Musculoskeletal digits and nails Overall: no clubbing 11/14/2013 None Full Exam - General 1994 Musculoskeletal digits and nails Overall: digits benign 11/14/2013 None Full Exam - General 1994 Musculoskeletal spine, ribs and pelvis Overall: spine benign 11/14/2013 None Full Exam - General 1994 Musculoskeletal spine, ribs and pelvis Overall: sacroiliac joint benign 11/14/2013 None Full Exam - General 1994 Musculoskeletal spine, ribs and pelvis Overall: good posture 11/14/2013 None Full Exam - General 1994 Musculoskeletal gait and station Overall: normal gait 11/14/2013 None Full Exam - General 1994 Musculoskeletal gait and station Overall: normal station 11/14/2013 None Full Exam - General 1994 Neurologic gait Overall: no ataxia, no unsteadiness 11/14/2013 None Full Exam - General 1994 Psychiatric orientation/consciousness Overall: oriented to person, place and time 11/14/2013 None Full Exam - General 1994 Psychiatric mood and affect Overall: normal mood and affect 11/14/2013 None Full Exam - General 1994 Constitutional general appearance Overall: well developed 10/24/2013 None Full Exam - General 1994 Constitutional general appearance Overall: in no acute distress 10/24/2013 None Full Exam - General 1994 Constitutional general appearance Overall: well nourished 10/24/2013 None Full Exam - General 1994 Eyes pupils and irises Overall: pupils equal, round, reactive to light and accomodation 10/24/2013 None Full Exam - General 1994 Ears/Nose/Throat otoscopic exam Overall: external auditory canals clear 10/24/2013 None Full Exam - General 1994 Ears/Nose/Throat otoscopic exam Overall: tympanic membranes clear 10/24/2013 None Full Exam - General 1994 Ears/Nose/Throat oral cavity/pharynx/larynx Overall: oral mucosa clear 10/24/2013 None Full Exam - General 1994 Ears/Nose/Throat oral cavity/pharynx/larynx Overall: oropharyngeal mucosa clear 10/24/2013 None Full Exam - General 1994 Ears/Nose/Throat oral cavity/pharynx/larynx Overall: no masses 10/24/2013 None Full Exam - General 1994 Respiratory auscultation Overall: breath sounds clear bilaterally 10/24/2013 None Full Exam - General 1994 Respiratory respiratory effort/rhythm Overall: no retractions 10/24/2013 None Full Exam - General 1994 Respiratory respiratory effort/rhythm Overall: normal rate 10/24/2013 None Full Exam - General 1994 Cardiovascular auscultation of heart Overall: regular rate 10/24/2013 None Full Exam - General 1994 Cardiovascular auscultation of heart Overall: normal heart sounds 10/24/2013 None Full Exam - General 1994 Cardiovascular auscultation of heart Overall: no murmurs 10/24/2013 None Full Exam - General 1994 Abdomen abdominal exam Overall: no tenderness 10/24/2013 None Full Exam - General 1995 Abdomen abdominal exam Overall: normal bowel sounds 10/24/2013 None Full Exam - General 1994 Abdomen abdominal exam Contour: rounded 10/24/2013 None Full Exam - General 1995 Musculoskeletal digits and nails Overall: no clubbing 10/24/2013 None Full Exam - General 1995 Musculoskeletal digits and nails Overall: digits benign 10/24/2013 None Full Exam - General 1994 Musculoskeletal spine, ribs and pelvis Overall: spine benign 10/24/2013 None Full Exam - General 1994 Musculoskeletal spine, ribs and pelvis Overall: sacroiliac joint benign 10/24/2013 None Full Exam - General 1994 Musculoskeletal spine, ribs and pelvis Overall: good posture 10/24/2013 None Full Exam - General 1994 Musculoskeletal gait and station Overall: normal gait 10/24/2013 None Full Exam - General 1994 Musculoskeletal gait and station Overall: normal station 10/24/2013 None Full Exam - General 1994 Neurologic gait Overall: no ataxia, no unsteadiness 10/24/2013 None Full Exam - General 1994 Psychiatric orientation/consciousness Overall: oriented to person, place and time 10/24/2013 None Full Exam - General 1994 Psychiatric mood and affect Overall: normal mood and affect 10/24/2013 None Full Exam - General 1994 Constitutional general appearance Overall: well developed 06/24/2013 None Full Exam - General 1994 Cardiovascular auscultation of heart Overall: no murmurs 06/24/2013 None Full Exam - General 1994 Abdomen abdominal exam Overall: no tenderness 06/24/2013 None Full Exam - General 1994 Abdomen abdominal exam Overall: normal bowel sounds 06/24/2013 None Full Exam - General 1994 Abdomen abdominal exam Contour: rounded 06/24/2013 None Full Exam - General 1994 Musculoskeletal digits and nails Overall: no clubbing 06/24/2013 None Full Exam - General 1994 Musculoskeletal digits and nails Overall: digits benign 06/24/2013 None Full Exam - General 1994 Musculoskeletal spine, ribs and pelvis Overall: spine benign 06/24/2013 None Full Exam - General 1994 Musculoskeletal spine, ribs and pelvis Overall: sacroiliac joint benign 06/24/2013 None Full Exam - General 1994 Musculoskeletal spine, ribs and pelvis Overall: good posture 06/24/2013 None Full Exam - General 1994 Musculoskeletal gait and station Overall: normal gait 06/24/2013 None Full Exam - General 1994 Musculoskeletal gait and station Overall: normal station 06/24/2013 None Full Exam - General 1995 Neurologic gait Overall: no ataxia, no unsteadiness 06/24/2013 None Full Exam - General 1994 Psychiatric orientation/consciousness Overall: oriented to person, place and time 06/24/2013 None Full Exam - General 1994 Psychiatric mood and affect Overall: normal mood and affect 06/24/2013 None Full Exam - General 1995 Constitutional general appearance Overall: in no acute distress 06/24/2013 None Full Exam - General 1995 Constitutional general appearance Overall: well nourished 06/24/2013 None Full Exam - General 1994 Eyes pupils and irises Overall: pupils equal, round, reactive to light and accomodation 06/24/2013 None Full Exam - General 1995 Ears/Nose/Throat otoscopic exam Overall: external auditory canals clear 06/24/2013 None Full Exam - General 1995 Ears/Nose/Throat otoscopic exam Overall: tympanic membranes clear 06/24/2013 None Full Exam - General 1995 Ears/Nose/Throat oral cavity/pharynx/larynx Overall: oral mucosa clear 06/24/2013 None Full Exam - General 1995 Ears/Nose/Throat oral cavity/pharynx/larynx Overall: oropharyngeal mucosa clear 06/24/2013 None Full Exam - General 1995 Ears/Nose/Throat oral cavity/pharynx/larynx Overall: no masses 06/24/2013 None Full Exam - General 1994 Respiratory auscultation Overall: breath sounds clear bilaterally 06/24/2013 None Full Exam - General 1994 Respiratory respiratory effort/rhythm Overall: no retractions 06/24/2013 None Full Exam - General 1994 Respiratory respiratory effort/rhythm Overall: normal rate 06/24/2013 None Full Exam - General 1994 Cardiovascular auscultation of heart Overall: regular rate 06/24/2013 None Full Exam - General 1994 Cardiovascular auscultation of heart Overall: normal heart sounds 06/24/2013 None Full Exam - General 1994 Constitutional general appearance Overall: well developed 06/05/2013 None Full Exam - General 1994 Constitutional general appearance Overall: in no acute distress 06/05/2013 None Full Exam - General 1994 Constitutional general appearance Overall: well nourished 06/05/2013 None Full Exam - General 1994 Eyes pupils and irises Overall: pupils equal, round, reactive to light and accomodation 06/05/2013 None Full Exam - General 1994 Ears/Nose/Throat otoscopic exam Overall: external auditory canals clear 06/05/2013 None Full Exam - General 1995 Ears/Nose/Throat otoscopic exam Overall: tympanic membranes clear 06/05/2013 None Full Exam - General 1995 Ears/Nose/Throat oral cavity/pharynx/larynx Overall: oral mucosa clear 06/05/2013 None Full Exam - General 1995 Ears/Nose/Throat oral cavity/pharynx/larynx Overall: oropharyngeal mucosa clear 06/05/2013 None Full Exam - General 1994 Ears/Nose/Throat oral cavity/pharynx/larynx Overall: no masses 06/05/2013 None Full Exam - General 1994 Respiratory auscultation Overall: breath sounds clear bilaterally 06/05/2013 None Full Exam - General 1994 Respiratory respiratory effort/rhythm Overall: no retractions 06/05/2013 None Full Exam - General 1994 Respiratory respiratory effort/rhythm Overall: normal rate 06/05/2013 None Full Exam - General 1994 Cardiovascular auscultation of heart Overall: regular rate 06/05/2013 None Full Exam - General 1994 Cardiovascular auscultation of heart Overall: normal heart sounds 06/05/2013 None Full Exam - General 1994 Cardiovascular auscultation of heart Overall: no murmurs 06/05/2013 None Full Exam - General 1994 Abdomen abdominal exam Overall: no tenderness 06/05/2013 None Full Exam - General 1994 Abdomen abdominal exam Overall: normal bowel sounds 06/05/2013 None Full Exam - General 1994 Abdomen abdominal exam Contour: rounded 06/05/2013 None Full Exam - General 1994 Musculoskeletal digits and nails Overall: no clubbing 06/05/2013 None Full Exam - General 1994 Musculoskeletal digits and nails Overall: digits benign 06/05/2013 None Full Exam - General 1994 Musculoskeletal spine, ribs and pelvis Overall: spine benign 06/05/2013 None Full Exam - General 1994 Musculoskeletal spine, ribs and pelvis Overall: sacroiliac joint benign 06/05/2013 None Full Exam - General 1994 Musculoskeletal spine, ribs and pelvis Overall: good posture 06/05/2013 None Full Exam - General 1994 Musculoskeletal gait and station Overall: normal gait 06/05/2013 None Full Exam - General 1994 Musculoskeletal gait and station Overall: normal station 06/05/2013 None Full Exam - General 1994 Neurologic gait Overall: no ataxia, no unsteadiness 06/05/2013 None Full Exam - General 1994 Psychiatric orientation/consciousness Overall: oriented to person, place and time 06/05/2013 None Full Exam - General 1994 Psychiatric mood and affect Overall: normal mood and affect 06/05/2013 None Full Exam - General 1995 Ears/Nose/Throat oral cavity/pharynx/larynx Overall: oropharyngeal mucosa clear 04/01/2013 None Full Exam - General 1995 Ears/Nose/Throat oral cavity/pharynx/larynx Overall: no masses 04/01/2013 None Full Exam - General 1994 Respiratory auscultation Overall: breath sounds clear bilaterally 04/01/2013 None Full Exam - General 1994 Respiratory respiratory effort/rhythm Overall: no retractions 04/01/2013 None Full Exam - General 1994 Respiratory respiratory effort/rhythm Overall: normal rate 04/01/2013 None Full Exam - General 1994 Cardiovascular auscultation of heart Overall: regular rate 04/01/2013 None Full Exam - General 1994 Cardiovascular auscultation of heart Overall: normal heart sounds 04/01/2013 None Full Exam - General 1994 Cardiovascular auscultation of heart Overall: no murmurs 04/01/2013 None Full Exam - General 1994 Abdomen abdominal exam Overall: no tenderness 04/01/2013 None Full Exam - General 1994 Abdomen abdominal exam Overall: normal bowel sounds 04/01/2013 None Full Exam - General 1994 Abdomen abdominal exam Contour: rounded 04/01/2013 None Full Exam - General 1994 Musculoskeletal digits and nails Overall: no clubbing 04/01/2013 None Full Exam - General 1994 Musculoskeletal digits and nails Overall: digits benign 04/01/2013 None Full Exam - General 1994 Musculoskeletal spine, ribs and pelvis Overall: spine benign 04/01/2013 None Full Exam - General 1994 Constitutional general appearance Overall: well developed 04/01/2013 None Full Exam - General 1994 Constitutional general appearance Overall: in no acute distress 04/01/2013 None Full Exam - General 1994 Constitutional general appearance Overall: well nourished 04/01/2013 None Full Exam - General 1994 Eyes pupils and irises Overall: pupils equal, round, reactive to light and accomodation 04/01/2013 None Full Exam - General 1994 Ears/Nose/Throat otoscopic exam Overall: external auditory canals clear 04/01/2013 None Full Exam - General 1994 Ears/Nose/Throat otoscopic exam Overall: tympanic membranes clear 04/01/2013 None Full Exam - General 1994 Ears/Nose/Throat oral cavity/pharynx/larynx Overall: oral mucosa clear 04/01/2013 None Full Exam - General 1995 Musculoskeletal spine, ribs and pelvis Overall: sacroiliac joint benign 04/01/2013 None Full Exam - General 1995 Musculoskeletal spine, ribs and pelvis Overall: good posture 04/01/2013 None Full Exam - General 1995 Musculoskeletal gait and station Overall: normal gait 04/01/2013 None Full Exam - General 1995 Musculoskeletal gait and station Overall: normal station 04/01/2013 None Full Exam - General 1994 Neurologic gait Overall: no ataxia, no unsteadiness 04/01/2013 None Full Exam - General 1994 Psychiatric orientation/consciousness Overall: oriented to person, place and time 04/01/2013 None Full Exam - General 1994 Psychiatric mood and affect Overall: normal mood and affect 04/01/2013 None Full Exam - General 1994 Constitutional general appearance Overall: well developed 01/29/2013 None Full Exam - General 1994 Constitutional general appearance Overall: in no acute distress 01/29/2013 None Full Exam - General 1994 Constitutional general appearance Overall: well nourished 01/29/2013 None Full Exam - General 1994 Eyes pupils and irises Overall: pupils equal, round, reactive to light and accomodation 01/29/2013 None Full Exam - General 1994 Ears/Nose/Throat otoscopic exam Overall: external auditory canals clear 01/29/2013 None Full Exam - General 1994 Ears/Nose/Throat otoscopic exam Overall: tympanic membranes clear 01/29/2013 None Full Exam - General 1994 Ears/Nose/Throat oral cavity/pharynx/larynx Overall: oral mucosa clear 01/29/2013 None Full Exam - General 1994 Ears/Nose/Throat oral cavity/pharynx/larynx Overall: oropharyngeal mucosa clear 01/29/2013 None Full Exam - General 1994 Ears/Nose/Throat oral cavity/pharynx/larynx Overall: no masses 01/29/2013 None Full Exam - General 1994 Respiratory auscultation Overall: breath sounds clear bilaterally 01/29/2013 None Full Exam - General 1994 Respiratory respiratory effort/rhythm Overall: no retractions 01/29/2013 None Full Exam - General 1994 Respiratory respiratory effort/rhythm Overall: normal rate 01/29/2013 None Full Exam - General 1994 Cardiovascular auscultation of heart Overall: regular rate 01/29/2013 None Full Exam - General 1994 Cardiovascular auscultation of heart Overall: normal heart sounds 01/29/2013 None Full Exam - General 1994 Cardiovascular auscultation of heart Overall: no murmurs 01/29/2013 None Full Exam - General 1995 Abdomen abdominal exam Overall: no tenderness 01/29/2013 None Full Exam - General 1995 Abdomen abdominal exam Overall: normal bowel sounds 01/29/2013 None Full Exam - General 1995 Abdomen abdominal exam Contour: rounded 01/29/2013 None Full Exam - General 1995 Musculoskeletal digits and nails Overall: no clubbing 01/29/2013 None Full Exam - General 1995 Musculoskeletal digits and nails Overall: digits benign 01/29/2013 None Full Exam - General 1995 Musculoskeletal spine, ribs and pelvis Overall: spine benign 01/29/2013 None Full Exam - General 1995 Musculoskeletal spine, ribs and pelvis Overall: sacroiliac joint benign 01/29/2013 None Full Exam - General 1995 Musculoskeletal spine, ribs and pelvis Overall: good posture 01/29/2013 None Full Exam - General 1994 Musculoskeletal gait and station Overall: normal gait 01/29/2013 None Full Exam - General 1995 Musculoskeletal gait and station Overall: normal station 01/29/2013 None Full Exam - General 1994 Neurologic gait Overall: no ataxia, no unsteadiness 01/29/2013 None Full Exam - General 1994 Psychiatric orientation/consciousness Overall: oriented to person, place and time 01/29/2013 None Full Exam - General 1994 Psychiatric mood and affect Overall: normal mood and affect 01/29/2013 None Full Exam - General 1994 Constitutional general appearance Overall: well developed 12/25/2012 None Full Exam - General 1994 Constitutional general appearance Overall: in no acute distress 12/25/2012 None Full Exam - General 1994 Constitutional general appearance Overall: well nourished 12/25/2012 None Full Exam - General 1994 Eyes pupils and irises Overall: pupils equal, round, reactive to light and accomodation 12/25/2012 None Full Exam - General 1994 Ears/Nose/Throat otoscopic exam Overall: external auditory canals clear 12/25/2012 None Full Exam - General 1994 Ears/Nose/Throat otoscopic exam Overall: tympanic membranes clear 12/25/2012 None Full Exam - General 1995 Ears/Nose/Throat oral cavity/pharynx/larynx Overall: oral mucosa clear 12/25/2012 None Full Exam - General 1995 Ears/Nose/Throat oral cavity/pharynx/larynx Overall: oropharyngeal mucosa clear 12/25/2012 None Full Exam - General 1995 Ears/Nose/Throat oral cavity/pharynx/larynx Overall: no masses 12/25/2012 None Full Exam - General 1995 Respiratory auscultation Overall: breath sounds clear bilaterally 12/25/2012 None Full Exam - General 1995 Respiratory respiratory effort/rhythm Overall: no retractions 12/25/2012 None Full Exam - General 1995 Respiratory respiratory effort/rhythm Overall: normal rate 12/25/2012 None Full Exam - General 1994 Cardiovascular auscultation of heart Overall: regular rate 12/25/2012 None Full Exam - General 1994 Cardiovascular auscultation of heart Overall: normal heart sounds 12/25/2012 None Full Exam - General 1994 Cardiovascular auscultation of heart Overall: no murmurs 12/25/2012 None Full Exam - General 1994 Abdomen abdominal exam Overall: no tenderness 12/25/2012 None Full Exam - General 1995 Abdomen abdominal exam Overall: normal bowel sounds 12/25/2012 None Full Exam - General 1994 Abdomen abdominal exam Contour: rounded 12/25/2012 None Full Exam - General 1994 Musculoskeletal digits and nails Overall: no clubbing 12/25/2012 None Full Exam - General 1994 Musculoskeletal digits and nails Overall: digits benign 12/25/2012 None Full Exam - General 1994 Musculoskeletal spine, ribs and pelvis Overall: spine benign 12/25/2012 None Full Exam - General 1994 Musculoskeletal spine, ribs and pelvis Overall: sacroiliac joint benign 12/25/2012 None Full Exam - General 1994 Musculoskeletal spine, ribs and pelvis Overall: good posture 12/25/2012 None Full Exam - General 1994 Musculoskeletal gait and station Overall: normal gait 12/25/2012 None Full Exam - General 1994 Musculoskeletal gait and station Overall: normal station 12/25/2012 None Full Exam - General 1994 Neurologic gait Overall: no ataxia, no unsteadiness 12/25/2012 None Full Exam - General 1994 Psychiatric orientation/consciousness Overall: oriented to person, place and time 12/25/2012 None Full Exam - General 1994 Psychiatric mood and affect Overall: normal mood and affect 12/25/2012 None Full Exam - General 1994 Constitutional general appearance Overall: well developed 10/01/2012 None Full Exam - General 1994 Constitutional general appearance Overall: in no acute distress 10/01/2012 None Full Exam - General 1994 Constitutional general appearance Overall: well nourished 10/01/2012 None Full Exam - General 1994 Eyes pupils and irises Overall: pupils equal, round, reactive to light and accomodation 10/01/2012 None Full Exam - General 1995 Ears/Nose/Throat otoscopic exam Overall: external auditory canals clear 10/01/2012 None Full Exam - General 1995 Ears/Nose/Throat otoscopic exam Overall: tympanic membranes clear 10/01/2012 None Full Exam - General 1995 Ears/Nose/Throat oral cavity/pharynx/larynx Overall: oral mucosa clear 10/01/2012 None Full Exam - General 1995 Ears/Nose/Throat oral cavity/pharynx/larynx Overall: oropharyngeal mucosa clear 10/01/2012 None Full Exam - General 1995 Ears/Nose/Throat oral cavity/pharynx/larynx Overall: no masses 10/01/2012 None Full Exam - General 1994 Respiratory auscultation Overall: breath sounds clear bilaterally 10/01/2012 None Full Exam - General 1994 Respiratory respiratory effort/rhythm Overall: no retractions 10/01/2012 None Full Exam - General 1994 Respiratory respiratory effort/rhythm Overall: normal rate 10/01/2012 None Full Exam - General 1994 Cardiovascular auscultation of heart Overall: regular rate 10/01/2012 None Full Exam - General 1994 Cardiovascular auscultation of heart Overall: normal heart sounds 10/01/2012 None Full Exam - General 1994 Cardiovascular auscultation of heart Overall: no murmurs 10/01/2012 None Full Exam - General 1994 Abdomen abdominal exam Overall: no tenderness 10/01/2012 None Full Exam - General 1994 Abdomen abdominal exam Overall: normal bowel sounds 10/01/2012 None Full Exam - General 1994 Abdomen abdominal exam Contour: rounded 10/01/2012 None Full Exam - General 1994 Musculoskeletal digits and nails Overall: no clubbing 10/01/2012 None Full Exam - General 1994 Musculoskeletal digits and nails Overall: digits benign 10/01/2012 None Full Exam - General 1994 Musculoskeletal spine, ribs and pelvis Overall: spine benign 10/01/2012 None Full Exam - General 1994 Musculoskeletal spine, ribs and pelvis Overall: sacroiliac joint benign 10/01/2012 None Full Exam - General 1994 Musculoskeletal spine, ribs and pelvis Overall: good posture 10/01/2012 None Full Exam - General 1994 Musculoskeletal gait and station Overall: normal gait 10/01/2012 None Full Exam - General 1994 Musculoskeletal gait and station Overall: normal station 10/01/2012 None Full Exam - General 1994 Neurologic gait Overall: no ataxia, no unsteadiness 10/01/2012 None Full Exam - General 1995 Psychiatric orientation/consciousness Overall: oriented to person, place and time 10/01/2012 None Full Exam - General 1995 Psychiatric mood and affect Overall: normal mood and affect 10/01/2012 None Full Exam - General 1995 Respiratory auscultation Lower lung field: diminished 06/29/2012 None Full Exam - General 1995 Respiratory respiratory effort/rhythm Overall: no retractions 06/29/2012 None Full Exam - General 1995 Respiratory respiratory effort/rhythm Overall: normal rate 06/29/2012 None Full Exam - General 1995 Cardiovascular auscultation of heart Overall: regular rate 06/29/2012 None Full Exam - General 1995 Cardiovascular auscultation of heart Overall: normal heart sounds 06/29/2012 None Full Exam - General 1995 Cardiovascular auscultation of heart Overall: no murmurs 06/29/2012 None Full Exam - General 1995 Musculoskeletal digits and nails Overall: no clubbing 06/29/2012 None Full Exam - General 1995 Musculoskeletal digits and nails Overall: digits benign 06/29/2012 None Full Exam - General 1995 Musculoskeletal spine, ribs and pelvis Overall: good posture 06/29/2012 None Full Exam - General 1995 Musculoskeletal gait and station Overall: normal gait 06/29/2012 None Full Exam - General 1995 Musculoskeletal gait and station Overall: normal station 06/29/2012 None Full Exam - General 1995 Psychiatric orientation/consciousness Overall: oriented to person, place and time 06/29/2012 None Full Exam - General 1995 Psychiatric mood and affect Overall: normal mood and affect 06/29/2012 None Full Exam - General 1994 Respiratory auscultation Upper lung field: a normal exam 06/29/2012 None Full Exam - General 1994 Constitutional general appearance Overall: well developed 06/29/2012 None Full Exam - General 1994 Constitutional general appearance Overall: in no acute distress 06/29/2012 None Full Exam - General 1994 Constitutional general appearance Overall: well nourished 06/29/2012 None Full Exam - General 1994 Eyes pupils and irises Overall: pupils equal, round, reactive to light and accomodation 06/29/2012 None Full Exam - General 1994 Ears/Nose/Throat otoscopic exam Overall: external auditory canals clear 06/29/2012 None Full Exam - General 1995 Ears/Nose/Throat otoscopic exam Tympanic membrane: erythematous 06/29/2012 None Full Exam - General 1995 Ears/Nose/Throat otoscopic exam Tympanic membrane: bulging 06/29/2012 None Full Exam - General 1995 Ears/Nose/Throat oral cavity/pharynx/larynx Overall: oral mucosa clear 06/29/2012 None Full Exam - General 1995 Ears/Nose/Throat oral cavity/pharynx/larynx Overall: no masses 06/29/2012 None Full Exam - General 1995 Ears/Nose/Throat oral cavity/pharynx/larynx Posterior Pharynx: purulent post nasal drainage 06/29/2012 None Full Exam - General 1994 Constitutional general appearance Overall: well developed 05/28/2012 None Full Exam - General 1994 Constitutional general appearance Overall: in no acute distress 05/28/2012 None Full Exam - General 1994 Constitutional general appearance Overall: well nourished 05/28/2012 None Full Exam - General 1994 Eyes pupils and irises Overall: pupils equal, round, reactive to light and accomodation 05/28/2012 None Full Exam - General 1994 Ears/Nose/Throat otoscopic exam Overall: external auditory canals clear 05/28/2012 None Full Exam - General 1994 Ears/Nose/Throat oral cavity/pharynx/larynx Overall: oral mucosa clear 05/28/2012 None Full Exam - General 1995 Ears/Nose/Throat oral cavity/pharynx/larynx Overall: no masses 05/28/2012 None Full Exam - General 1994 Respiratory respiratory effort/rhythm Overall: no retractions 05/28/2012 None Full Exam - General 1994 Respiratory respiratory effort/rhythm Overall: normal rate 05/28/2012 None Full Exam - General 1994 Cardiovascular auscultation of heart Overall: regular rate 05/28/2012 None Full Exam - General 1994 Cardiovascular auscultation of heart Overall: normal heart sounds 05/28/2012 None Full Exam - General 1994 Cardiovascular auscultation of heart Overall: no murmurs 05/28/2012 None Full Exam - General 1994 Musculoskeletal digits and nails Overall: no clubbing 05/28/2012 None Full Exam - General 1994 Musculoskeletal digits and nails Overall: digits benign 05/28/2012 None Full Exam - General 1994 Musculoskeletal spine, ribs and pelvis Overall: good posture 05/28/2012 None Full Exam - General 1994 Musculoskeletal gait and station Overall: normal gait 05/28/2012 None Full Exam - General 1994 Musculoskeletal gait and station Overall: normal station 05/28/2012 None Full Exam - General 1994 Psychiatric orientation/consciousness Overall: oriented to person, place and time 05/28/2012 None Full Exam - General 1994 Psychiatric mood and affect Overall: normal mood and affect 05/28/2012 None Full Exam - General 1994 Ears/Nose/Throat otoscopic exam Tympanic membrane: erythematous 05/28/2012 None Full Exam - General 1995 Ears/Nose/Throat otoscopic exam Tympanic membrane: bulging 05/28/2012 None Full Exam - General 1994 Ears/Nose/Throat oral cavity/pharynx/larynx Posterior Pharynx: purulent post nasal drainage 05/28/2012 None Full Exam - General 1994 Respiratory auscultation Upper lung field: bronchial 05/28/2012 None Full Exam - General 1994 Respiratory auscultation Upper lung field: rhonchi 05/28/2012 None Full Exam - General 1994 Respiratory auscultation Lower lung field: diminished 05/28/2012 None Full Exam - General 1994 Constitutional general appearance Overall: well nourished 04/02/2012 None Full Exam - General 1994 Constitutional general appearance Overall: well developed 04/02/2012 None Full Exam - General 1994 Constitutional general appearance Overall: in no acute distress 04/02/2012 None Full Exam - General 1994 Eyes pupils and irises Overall: pupils equal, round, reactive to light and accomodation 04/02/2012 None Full Exam - General 1994 Respiratory auscultation Overall: breath sounds clear bilaterally 04/02/2012 None Full Exam - General 1994 Respiratory respiratory effort/rhythm Overall: no retractions 04/02/2012 None Full Exam - General 1994 Respiratory respiratory effort/rhythm Overall: normal rate 04/02/2012 None Full Exam - General 1994 Cardiovascular auscultation of heart Overall: regular rate 04/02/2012 None Full Exam - General 1994 Cardiovascular auscultation of heart Overall: normal heart sounds 04/02/2012 None Full Exam - General 1994 Cardiovascular auscultation of heart Overall: no murmurs 04/02/2012 None Full Exam - General 1994 Abdomen abdominal exam Overall: no tenderness 04/02/2012 None Full Exam - General 1994 Abdomen abdominal exam Overall: normal bowel sounds 04/02/2012 None Full Exam - General 1994 Abdomen abdominal exam Contour: rounded 04/02/2012 None Full Exam - General 1994 Neurologic gait Overall: no ataxia, no unsteadiness 04/02/2012 None Full Exam - General 1994 Psychiatric orientation/consciousness Overall: oriented to person, place and time 04/02/2012 None Full Exam - General 1994 Psychiatric mood and affect Overall: normal mood and affect 04/02/2012 None Full Exam - General 1995 Ears/Nose/Throat otoscopic exam Overall: tympanic membranes clear 04/02/2012 None Full Exam - General 1995 Ears/Nose/Throat otoscopic exam Overall: external auditory canals clear 04/02/2012 None Full Exam - General 1995 Ears/Nose/Throat oral cavity/pharynx/larynx Overall: oropharyngeal mucosa clear 04/02/2012 None Full Exam - General 1995 Ears/Nose/Throat oral cavity/pharynx/larynx Overall: no masses 04/02/2012 None Full Exam - General 1995 Ears/Nose/Throat oral cavity/pharynx/larynx Overall: oral mucosa clear 04/02/2012 None Full Exam - General 1994 Musculoskeletal digits and nails Overall: digits benign 04/02/2012 None Full Exam - General 1994 Musculoskeletal digits and nails Overall: no clubbing 04/02/2012 None Full Exam - General 1994 Musculoskeletal gait and station Overall: normal station 04/02/2012 None Full Exam - General 1994 Musculoskeletal gait and station Overall: normal gait 04/02/2012 None Full Exam - General 1994 Musculoskeletal spine, ribs and pelvis Overall: good posture 04/02/2012 None Full Exam - General 1994 Musculoskeletal spine, ribs and pelvis Overall: sacroiliac joint benign 04/02/2012 None Full Exam - General 1994 Musculoskeletal spine, ribs and pelvis Overall: spine benign 04/02/2012 None Full Exam - ENT Neurologic orientation Overall: oriented to person, place a nd time 01/24/2012 None Full Exam - ENT Lymphatic palpation of lymph nodes Overall: anterior cervical chain benign 01/24/2012 None Full Exam - ENT Lymphatic palpation of lymph nodes Overall: posterior cervical chain benign 01/24/2012 None Full Exam - ENT Cardiovascular auscultation of heart Overall: regular rate 01/24/2012 None Full Exam - ENT Cardiovascular auscultation of heart Overall: normal heart sounds 01/24/2012 None Full Exam - ENT Respiratory auscultation Overall: breath sounds clear bilater ally 01/24/2012 None Full Exam - ENT Face and Head palpation Overall: no sinus tenderness 01/24/2012 None Full Exam - ENT Ears/Nose/Throat otoscopic exam Overall: external auditory canals normal 01/24/2012 None Full Exam - ENT Ears/Nose/Throat otoscopic exam Left tympanic membrane: air-fluid le ingrid 01/24/2012 None Full Exam - ENT Ears/Nose/Throat otoscopic exam Right tympanic membrane: air-fluid level 01/24/2012 None Full Exam - ENT Ears/Nose/Throat oropharynx Overall: oral mucosa clear 01/24/2012 None Full Exam - ENT Constitutional general appearance Overall: well nourished 01/24/2012 None Full Exam - ENT Constitutional general appearance Overall: well developed 01/24/2012 None Full Exam - ENT Constitutional general appearance Overall: in no acute distress 01/24/2012 None Full Exam - ENT Ears/Nose/Throat nasal mucosa, septum, turbinates Drainage: purulent 01/24/2012 None Full Exam - ENT Ears/Nose/Throat nasal mucosa, septum, turbinates Left nasal cavity: erythema 01/24/2012 None Full Exam - ENT Ears/Nose/Throat nasal mucosa, septum, turbinates Right nasal cavity: erythema 01/24/2012 None Full Exam - Cardiology Constitutional general appearance Overall: well nourished 10/03/2011 None Full Exam - Cardiology Constitutional general appearance Overall: well developed 10/03/2011 None Full Exam - Cardiology Constitutional general appearance Overall: in no acute distress 10/03/2011 None Full Exam - Cardiology Eyes conjunctiva/eyelids Overall: conjunctiva clear 10/03/2011 None Full Exam - Cardiology Chest/Breast breast/chest inspection Overall: normal chest shape 10/03/2011 None Full Exam - Cardiology Respiratory respiratory effort/rhythm Overall: no retractions 10/03/2011 None Full Exam - Cardiology Respiratory respiratory effort/rhythm Overall: normal rate 10/03/2011 None Full Exam - Cardiology Respiratory auscultation Overall: breath sounds clear bilaterally 10/03/2011 None Full Exam - Cardiology Cardiovascular auscultation of heart Overall: regular rate 10/03/2011 None Full Exam - Cardiology Cardiovascular auscultation of heart Overall: normal heart sounds 10/03/2011 None Full Exam - Cardiology Cardiovascular extremities Overall: without clubbing, cyanosis, or edema 10/03/2011 None Full Exam - Cardiology Abdomen abdominal exam Overall: no tenderness 10/03/2011 None Full Exam - Cardiology Abdomen abdominal exam Overall: normal bowel sounds 10/03/2011 None Full Exam - Cardiology Extremities digits and nails Overall: no clubbing 10/03/2011 None Full Exam - Cardiology Extremities digits and nails Overall: digits benign 10/03/2011 None Full Exam - Cardiology Psychiatric orientation/consciousness Overall: oriented to person, place and time 10/03/2011 None Full Exam - General 1994 Psychiatric mood and affect Overall: normal mood and affect 05/30/2011 None Full Exam - General 1994 Psychiatric orientation/consciousness Overall: oriented to person, place and time 05/30/2011 None Full Exam - General 1994 Neurologic gait Overall: no ataxia, no unsteadiness 05/30/2011 None Full Exam - General 1994 Abdomen abdominal exam Overall: no tenderness 05/30/2011 None Full Exam - General 1994 Abdomen abdominal exam Overall: normal bowel sounds 05/30/2011 None Full Exam - General 1994 Abdomen abdominal exam Contour: rounded 05/30/2011 None Full Exam - General 1994 Cardiovascular auscultation of heart Overall: regular rate 05/30/2011 None Full Exam - General 1994 Cardiovascular auscultation of heart Overall: normal heart sounds 05/30/2011 None Full Exam - General 1994 Cardiovascular auscultation of heart Overall: no murmurs 05/30/2011 None Full Exam - General 1994 Respiratory auscultation Overall: breath sounds clear bilaterally 05/30/2011 None Full Exam - General 1994 Respiratory respiratory effort/rhythm Overall: normal rate 05/30/2011 None Full Exam - General 1994 Respiratory respiratory effort/rhythm Overall: no retractions 05/30/2011 None Full Exam - General 1994 Constitutional general appearance Overall: well nourished 05/30/2011 None Full Exam - General 1994 Constitutional general appearance Overall: well developed 05/30/2011 None Full Exam - General 1994 Constitutional general appearance Overall: in no acute distress 05/30/2011 None Full Exam - General 1994 Eyes pupils and irises Overall: pupils equal, round, reactive to light and accomodation 05/30/2011 None Exam Name System Name It em Name Status Result Effective Dates Notes Full Exam - Orthopedics Constitutional general appearance Overall: well nourished 09/27/2018 None Full Exam - Orthopedics Constitutional general appearance Overall: well developed 09/27/2018 None Full Exam - Orthopedics Constitutional general appearance Overall: in no acute distress 09/27/2018 None Full Exam - Orthopedics Psychiatric orientation/consciousness Overall: oriented to person, place and time 09/27/2018 None Full Exam - Orthopedics MS: spine/ri b/pelvis insp & palp - S/R/P Sacroiliac palpation: right sacroiliac joint tenderness 09/27/2018 None Full Exam - Orthopedics Respiratory auscultation Overall: breath sounds clear bilaterally 09/27/2018 None Full Exam - Orthopedics Respiratory respiratory effort/rhythm Overall: no retractions 09/27/2018 None Full Exam - Orthopedics Respiratory respiratory effort/rhythm Overall: normal rate 09/27/2018 None Full Exam - Orthopedics Respiratory respiratory effort/rhythm Overall: normal, symmetric chest expansion 09/27/2018 None Full Exam - Orthopedics Musculoskeletal gait and station Overall: normal gait 09/27/2018 None Full Exam - Orthopedics MS: spine/ri b/pelvis insp & palp - S/R/P Hip palpation: tender at the posterior margin of the right trochanter 09/27/2018 None Full Exam - General 1994 Constitutional general appearance Overall: well developed 09/11/2018 None Full Exam - General 1994 Constitutional general appearance Overall: in no acute distress 09/11/2018 None Full Exam - General 1994 Constitutional general appearance Overall: well nourished 09/11/2018 None Full Exam - General 1994 Eyes pupils and irises Overall: pupils equal, round, reactive to light and accomodation 09/11/2018 None Full Exam - General 1994 Ears/Nose/Throat otoscopic exam Overall: external auditory canals clear 09/11/2018 None Full Exam - General 1994 Ears/Nose/Throat otoscopic exam Overall: tympanic membranes clear 09/11/2018 None Full Exam - General 1994 Ears/Nose/Throat oral cavity/pharynx/larynx Overall: no masses 09/11/2018 None Full Exam - General 1994 Respiratory auscultation Overall: breath sounds clear bilaterally 09/11/2018 None Full Exam - General 1994 Respiratory respiratory effort/rhythm Overall: no retractions 09/11/2018 None Full Exam - General 1994 Respiratory respiratory effort/rhythm Overall: normal rate 09/11/2018 None Full Exam - General 1994 Cardiovascular auscultation of heart Overall: regular rate 09/11/2018 None Full Exam - General 1994 Cardiovascular auscultation of heart Overall: normal heart sounds 09/11/2018 None Full Exam - General 1994 Cardiovascular auscultation of heart Overall: no murmurs 09/11/2018 None Full Exam - General 1994 Abdomen abdominal exam Overall: no tenderness 09/11/2018 None Full Exam - General 1994 Abdomen abdominal exam Overall: normal bowel sounds 09/11/2018 None Full Exam - General 1994 Abdomen abdominal exam Contour: rounded 09/11/2018 None Full Exam - General 1994 Musculoskeletal spine, ribs and pelvis Overall: good posture 09/11/2018 None Full Exam - General 1994 Neurologic gait Overall: no ataxia, no unsteadiness 09/11/2018 None Full Exam - General 1994 Psychiatric orientation/consciousness Overall: oriented to person, place and time 09/11/2018 None Full Exam - General 1994 Psychiatric mood and affect Overall: normal mood and affect 09/11/2018 None Full Exam - General 1994 Cardiovascular extremities Edema present: pitting 09/11/2018 None Full Exam - General 1994 Cardiovascular extremities Edema present: severity 1+ - 4+: 2+ 09/11/2018 None Full Exam - General 1994 Constitutional general appearance Overall: well developed 06/04/2018 None Full Exam - General 1994 Constitutional general appearance Overall: in no acute distress 06/04/2018 None Full Exam - General 1994 Constitutional general appearance Overall: well nourished 06/04/2018 None Full Exam - General 1994 Eyes pupils and irises Overall: pupils equal, round, reactive to light and accomodation 06/04/2018 None Full Exam - General 1994 Ears/Nose/Throat otoscopic exam Overall: external auditory canals clear 06/04/2018 None Full Exam - General 1994 Ears/Nose/Throat otoscopic exam Overall: tympanic membranes clear 06/04/2018 None Full Exam - General 1994 Ears/Nose/Throat oral cavity/pharynx/larynx Overall: no masses 06/04/2018 None Full Exam - General 1994 Ears/Nose/Throat oral cavity/pharynx/larynx Oral mucosa: erythroplakia 06/04/2018 None Full Exam - General 1994 Ears/Nose/Throat oral cavity/pharynx/larynx Oral mucosa: thrush 06/04/2018 None Full Exam - General 1994 Respiratory respiratory effort/rhythm Overall: no retractions 06/04/2018 None Full Exam - General 1994 Respiratory respiratory effort/rhythm Overall: normal rate 06/04/2018 None Full Exam - General 1994 Cardiovascular auscultation of heart Overall: regular rate 06/04/2018 None Full Exam - General 1994 Cardiovascular auscultation of heart Overall: normal heart sounds 06/04/2018 None Full Exam - General 1994 Cardiovascular auscultation of heart Overall: no murmurs 06/04/2018 None Full Exam - General 1994 Abdomen abdominal exam Overall: no tenderness 06/04/2018 None Full Exam - General 1994 Abdomen abdominal exam Overall: normal bowel sounds 06/04/2018 None Full Exam - General 1994 Abdomen abdominal exam Contour: rounded 06/04/2018 None Full Exam - General 1994 Musculoskeletal spine, ribs and pelvis Overall: good posture 06/04/2018 None Full Exam - General 1994 Musculoskeletal spine, ribs and pelvis Palpation: tender at greater trochanter 06/04/2018 None Full Exam - General 1994 Neurologic gait Overall: no ataxia, no unsteadiness 06/04/2018 None Full Exam - General 1994 Psychiatric orientation/consciousness Overall: oriented to person, place and time 06/04/2018 None Full Exam - General 1994 Psychiatric mood and affect Overall: normal mood and affect 06/04/2018 None Full Exam - General 1994 Respiratory auscultation Upper lung field: Breath sounds clear 06/04/2018 None Full Exam - General 1994 Respiratory auscultation Lower lung field: crackles 06/04/2018 None Full Exam - General 1994 Constitutional general appearance Overall: well developed 03/27/2018 None Full Exam - General 1994 Constitutional general appearance Overall: in no acute distress 03/27/2018 None Full Exam - General 1994 Constitutional general appearance Overall: well nourished 03/27/2018 None Full Exam - General 1994 Eyes pupils and irises Overall: pupils equal, round, reactive to light and accomodation 03/27/2018 None Full Exam - General 1994 Ears/Nose/Throat otoscopic exam Overall: external auditory canals clear 03/27/2018 None Full Exam - General 1994 Ears/Nose/Throat otoscopic exam Overall: tympanic membranes clear 03/27/2018 None Full Exam - General 1994 Ears/Nose/Throat oral cavity/pharynx/larynx Overall: no masses 03/27/2018 None Full Exam - General 1994 Respiratory auscultation Overall: breath sounds clear bilaterally 03/27/2018 None Full Exam - General 1994 Respiratory respiratory effort/rhythm Overall: no retractions 03/27/2018 None Full Exam - General 1994 Respiratory respiratory effort/rhythm Overall: normal rate 03/27/2018 None Full Exam - General 1994 Cardiovascular auscultation of heart Overall: regular rate 03/27/2018 None Full Exam - General 1994 Cardiovascular auscultation of heart Overall: normal heart sounds 03/27/2018 None Full Exam - General 1994 Cardiovascular auscultation of heart Overall: no murmurs 03/27/2018 None Full Exam - General 1994 Abdomen abdominal exam Overall: no tenderness 03/27/2018 None Full Exam - General 1994 Abdomen abdominal exam Overall: normal bowel sounds 03/27/2018 None Full Exam - General 1994 Abdomen abdominal exam Contour: rounded 03/27/2018 None Full Exam - General 1994 Musculoskeletal spine, ribs and pelvis Overall: good posture 03/27/2018 None Full Exam - General 1994 Neurologic gait Overall: no ataxia, no unsteadiness 03/27/2018 None Full Exam - General 1994 Psychiatric orientation/consciousness Overall: oriented to person, place and time 03/27/2018 None Full Exam - General 1994 Psychiatric mood and affect Overall: normal mood and affect 03/27/2018 None Full Exam - General 1994 Integument inspection of skin Overall: few scattered moles, no gross abnormalities 03/27/2018 None Full Exam - General 1994 Constitutional general appearance Overall: well developed 03/19/2018 None Full Exam - General 1994 Constitutional general appearance Overall: in no acute distress 03/19/2018 None Full Exam - General 1994 Constitutional general appearance Overall: well nourished 03/19/2018 None Full Exam - General 1994 Eyes pupils and irises Overall: pupils equal, round, reactive to light and accomodation 03/19/2018 None Full Exam - General 1994 Ears/Nose/Throat otoscopic exam Overall: external auditory canals clear 03/19/2018 None Full Exam - General 1994 Ears/Nose/Throat otoscopic exam Overall: tympanic membranes clear 03/19/2018 None Full Exam - General 1994 Ears/Nose/Throat oral cavity/pharynx/larynx Overall: no masses 03/19/2018 None Full Exam - General 1994 Respiratory auscultation Overall: breath sounds clear bilaterally 03/19/2018 None Full Exam - General 1994 Respiratory respiratory effort/rhythm Overall: no retractions 03/19/2018 None Full Exam - General 1994 Respiratory respiratory effort/rhythm Overall: normal rate 03/19/2018 None Full Exam - General 1994 Cardiovascular auscultation of heart Overall: regular rate 03/19/2018 None Full Exam - General 1994 Cardiovascular auscultation of heart Overall: normal heart sounds 03/19/2018 None Full Exam - General 1994 Cardiovascular auscultation of heart Overall: no murmurs 03/19/2018 None Full Exam - General 1994 Abdomen abdominal exam Overall: no tenderness 03/19/2018 None Full Exam - General 1994 Abdomen abdominal exam Overall: normal bowel sounds 03/19/2018 None Full Exam - General 1994 Abdomen abdominal exam Contour: rounded 03/19/2018 None Full Exam - General 1994 Musculoskeletal spine, ribs and pelvis Overall: good posture 03/19/2018 None Full Exam - General 1994 Neurologic gait Overall: no ataxia, no unsteadiness 03/19/2018 None Full Exam - General 1994 Psychiatric orientation/consciousness Overall: oriented to person, place and time 03/19/2018 None Full Exam - General 1994 Psychiatric mood and affect Overall: normal mood and affect 03/19/2018 None Full Exam - General 1994 Ears/Nose/Throat oral cavity/pharynx/larynx Oral mucosa: erythroplakia 03/19/2018 None Full Exam - General 1994 Ears/Nose/Throat oral cavity/pharynx/larynx Oral mucosa: thrush 03/19/2018 None Full Exam - General 1994 Musculoskeletal spine, ribs and pelvis Palpation: tender at greater trochanter 03/19/2018 None Full Exam - General 1994 Constitutional general appearance Overall: well developed 01/30/2018 None Full Exam - General 1994 Constitutional general appearance Overall: in no acute distress 01/30/2018 None Full Exam - General 1994 Constitutional general appearance Overall: well nourished 01/30/2018 None Full Exam - General 1994 Eyes pupils and irises Overall: pupils equal, round, reactive to light and accomodation 01/30/2018 None Full Exam - General 1994 Ears/Nose/Throat otoscopic exam Overall: external auditory canals clear 01/30/2018 None Full Exam - General 1994 Ears/Nose/Throat otoscopic exam Overall: tympanic membranes clear 01/30/2018 None Full Exam - General 1994 Ears/Nose/Throat oral cavity/pharynx/larynx Overall: oral mucosa clear 01/30/2018 None Full Exam - General 1994 Ears/Nose/Throat oral cavity/pharynx/larynx Overall: oropharyngeal mucosa clear 01/30/2018 None Full Exam - General 1994 Ears/Nose/Throat oral cavity/pharynx/larynx Overall: no masses 01/30/2018 None Full Exam - General 1994 Respiratory auscultation Overall: breath sounds clear bilaterally 01/30/2018 None Full Exam - General 1994 Respiratory respiratory effort/rhythm Overall: no retractions 01/30/2018 None Full Exam - General 1994 Respiratory respiratory effort/rhythm Overall: normal rate 01/30/2018 None Full Exam - General 1994 Cardiovascular auscultation of heart Overall: regular rate 01/30/2018 None Full Exam - General 1994 Cardiovascular auscultation of heart Overall: normal heart sounds 01/30/2018 None Full Exam - General 1994 Cardiovascular auscultation of heart Overall: no murmurs 01/30/2018 None Full Exam - General 1994 Abdomen abdominal exam Overall: no tenderness 01/30/2018 None Full Exam - General 1994 Abdomen abdominal exam Overall: normal bowel sounds 01/30/2018 None Full Exam - General 1994 Abdomen abdominal exam Contour: rounded 01/30/2018 None Full Exam - General 1994 Musculoskeletal digits and nails Overall: no clubbing 01/30/2018 None Full Exam - General 1994 Musculoskeletal digits and nails Overall: digits benign 01/30/2018 None Full Exam - General 1994 Musculoskeletal spine, ribs and pelvis Overall: sacroiliac joint benign 01/30/2018 None Full Exam - General 1994 Musculoskeletal spine, ribs and pelvis Posture: lordosis 01/30/2018 None Full Exam - General 1994 Musculoskeletal gait and station Overall: normal gait 01/30/2018 None Full Exam - General 1994 Musculoskeletal gait and station Overall: normal station 01/30/2018 None Full Exam - General 1994 Neurologic gait Overall: no ataxia, no unsteadiness 01/30/2018 None Full Exam - General 1994 Psychiatric orientation/consciousness Overall: oriented to person, place and time 01/30/2018 None Full Exam - General 1994 Psychiatric mood and affect Overall: normal mood and affect 01/30/2018 None Full Exam - General 1994 Constitutional general appearance Overall: well developed 12/26/2017 None Full Exam - General 1994 Constitutional general appearance Overall: in no acute distress 12/26/2017 None Full Exam - General 1994 Constitutional general appearance Overall: well nourished 12/26/2017 None Full Exam - General 1994 Eyes pupils and irises Overall: pupils equal, round, reactive to light and accomodation 12/26/2017 None Full Exam - General 1994 Ears/Nose/Throat otoscopic exam Overall: external auditory canals clear 12/26/2017 None Full Exam - General 1994 Ears/Nose/Throat otoscopic exam Overall: tympanic membranes clear 12/26/2017 None Full Exam - General 1994 Ears/Nose/Throat oral cavity/pharynx/larynx Overall: oral mucosa clear 12/26/2017 None Full Exam - General 1994 Ears/Nose/Throat oral cavity/pharynx/larynx Overall: oropharyngeal mucosa clear 12/26/2017 None Full Exam - General 1994 Ears/Nose/Throat oral cavity/pharynx/larynx Overall: no masses 12/26/2017 None Full Exam - General 1994 Respiratory auscultation Overall: breath sounds clear bilaterally 12/26/2017 None Full Exam - General 1994 Respiratory respiratory effort/rhythm Overall: no retractions 12/26/2017 None Full Exam - General 1994 Respiratory respiratory effort/rhythm Overall: normal rate 12/26/2017 None Full Exam - General 1994 Cardiovascular auscultation of heart Overall: regular rate 12/26/2017 None Full Exam - General 1994 Cardiovascular auscultation of heart Overall: normal heart sounds 12/26/2017 None Full Exam - General 1994 Cardiovascular auscultation of heart Overall: no murmurs 12/26/2017 None Full Exam - General 1994 Abdomen abdominal exam Overall: no tenderness 12/26/2017 None Full Exam - General 1994 Abdomen abdominal exam Overall: normal bowel sounds 12/26/2017 None Full Exam - General 1994 Abdomen abdominal exam Contour: rounded 12/26/2017 None Full Exam - General 1994 Musculoskeletal digits and nails Overall: no clubbing 12/26/2017 None Full Exam - General 1994 Musculoskeletal digits and nails Overall: digits benign 12/26/2017 None Full Exam - General 1994 Musculoskeletal spine, ribs and pelvis Overall: sacroiliac joint benign 12/26/2017 None Full Exam - General 1994 Musculoskeletal spine, ribs and pelvis Posture: lordosis 12/26/2017 None Full Exam - General 1994 Musculoskeletal gait and station Overall: normal gait 12/26/2017 None Full Exam - General 1994 Musculoskeletal gait and station Overall: normal station 12/26/2017 None Full Exam - General 1994 Neurologic gait Overall: no ataxia, no unsteadiness 12/26/2017 None Full Exam - General 1994 Psychiatric orientation/consciousness Overall: oriented to person, place and time 12/26/2017 None Full Exam - General 1994 Psychiatric mood and affect Overall: normal mood and affect 12/26/2017 None Full Exam - General 1994 Constitutional general appearance Overall: well developed 11/21/2017 None Full Exam - General 1994 Constitutional general appearance Overall: in no acute distress 11/21/2017 None Full Exam - General 1994 Constitutional general appearance Overall: well nourished 11/21/2017 None Full Exam - General 1994 Eyes conjunctiva/eyelids Overall: conjunctiva clear 11/21/2017 None Full Exam - General 1994 Eyes conjunctiva/eyelids Overall: cornea clear 11/21/2017 None Full Exam - General 1994 Eyes conjunctiva/eyelids Overall: eyelids normal 11/21/2017 None Full Exam - General 1994 Eyes pupils and irises Overall: pupils equal, round, reactive to light and accomodation 11/21/2017 None Full Exam - General 1994 Ears/Nose/Throat otoscopic exam Overall: external auditory canals clear 11/21/2017 None Full Exam - General 1994 Ears/Nose/Throat otoscopic exam Overall: tympanic membranes clear 11/21/2017 None Full Exam - General 1994 Ears/Nose/Throat lips/teeth/gingiva Overall: benign lips 11/21/2017 None Full Exam - General 1994 Ears/Nose/Throat oral cavity/pharynx/larynx Overall: oral mucosa clear 11/21/2017 None Full Exam - General 1994 Ears/Nose/Throat oral cavity/pharynx/larynx Overall: oropharyngeal mucosa clear 11/21/2017 None Full Exam - General 1994 Respiratory respiratory effort/rhythm Overall: no retractions 11/21/2017 None Full Exam - General 1994 Respiratory respiratory effort/rhythm Overall: normal rate 11/21/2017 None Full Exam - General 1994 Respiratory auscultation Overall: breath sounds clear bilaterally 11/21/2017 None Full Exam - General 1994 Cardiovascular auscultation of heart Overall: regular rate 11/21/2017 None Full Exam - General 1994 Cardiovascular auscultation of heart Overall: normal heart sounds 11/21/2017 None Full Exam - General 1994 Abdomen abdominal exam Overall: normal bowel sounds 11/21/2017 None Full Exam - General 1994 Abdomen abdominal exam Overall: no tenderness 11/21/2017 None Full Exam - General 1994 Musculoskeletal head and neck Overall: head atraumatic 11/21/2017 None Full Exam - General 1994 Musculoskeletal gait and station Overall: normal station 11/21/2017 None Full Exam - General 1994 Musculoskeletal gait and station Overall: normal gait 11/21/2017 None Full Exam - General 1994 Neurologic cranial nerves Overall: crainial nerves 2 - 12 grossly intact 11/21/2017 None Full Exam - General 1994 Psychiatric orientation/consciousness Overall: oriented to person, place and time 11/21/2017 None Full Exam - General 1994 Psychiatric mood and affect Overall: normal mood and affect 11/21/2017 None Full Exam - General 1994 Psychiatric appearance Overall: well-groomed, good eye contact 11/21/2017 None Full Exam - General 1994 Constitutional general appearance Overall: well developed 10/19/2017 None Full Exam - General 1994 Constitutional general appearance Overall: in no acute distress 10/19/2017 None Full Exam - General 1994 Constitutional general appearance Overall: well nourished 10/19/2017 None Full Exam - General 1994 Eyes pupils and irises Overall: pupils equal, round, reactive to light and accomodation 10/19/2017 None Full Exam - General 1994 Ears/Nose/Throat otoscopic exam Overall: external auditory canals clear 10/19/2017 None Full Exam - General 1994 Ears/Nose/Throat otoscopic exam Overall: tympanic membranes clear 10/19/2017 None Full Exam - General 1994 Ears/Nose/Throat oral cavity/pharynx/larynx Overall: oral mucosa clear 10/19/2017 None Full Exam - General 1994 Ears/Nose/Throat oral cavity/pharynx/larynx Overall: oropharyngeal mucosa clear 10/19/2017 None Full Exam - General 1994 Ears/Nose/Throat oral cavity/pharynx/larynx Overall: no masses 10/19/2017 None Full Exam - General 1994 Respiratory auscultation Overall: breath sounds clear bilaterally 10/19/2017 None Full Exam - General 1994 Respiratory respiratory effort/rhythm Overall: no retractions 10/19/2017 None Full Exam - General 1994 Respiratory respiratory effort/rhythm Overall: normal rate 10/19/2017 None Full Exam - General 1994 Cardiovascular auscultation of heart Overall: regular rate 10/19/2017 None Full Exam - General 1994 Cardiovascular auscultation of heart Overall: normal heart sounds 10/19/2017 None Full Exam - General 1994 Cardiovascular auscultation of heart Overall: no murmurs 10/19/2017 None Full Exam - General 1994 Abdomen abdominal exam Overall: no tenderness 10/19/2017 None Full Exam - General 1994 Abdomen abdominal exam Overall: normal bowel sounds 10/19/2017 None Full Exam - General 1994 Abdomen abdominal exam Contour: rounded 10/19/2017 None Full Exam - General 1994 Musculoskeletal digits and nails Overall: no clubbing 10/19/2017 None Full Exam - General 1994 Musculoskeletal digits and nails Overall: digits benign 10/19/2017 None Full Exam - General 1994 Musculoskeletal spine, ribs and pelvis Overall: spine benign 10/19/2017 None Full Exam - General 1994 Musculoskeletal spine, ribs and pelvis Overall: sacroiliac joint benign 10/19/2017 None Full Exam - General 1994 Musculoskeletal spine, ribs and pelvis Overall: good posture 10/19/2017 None Full Exam - General 1994 Musculoskeletal gait and station Overall: normal gait 10/19/2017 None Full Exam - General 1994 Musculoskeletal gait and station Overall: normal station 10/19/2017 None Full Exam - General 1994 Neurologic gait Overall: no ataxia, no unsteadiness 10/19/2017 None Full Exam - General 1994 Psychiatric orientation/consciousness Overall: oriented to person, place and time 10/19/2017 None Full Exam - General 1994 Psychiatric mood and affect Overall: normal mood and affect 10/19/2017 None Full Exam - General 1994 Constitutional general appearance Overall: well developed 09/18/2017 None Full Exam - General 1994 Constitutional general appearance Overall: in no acute distress 09/18/2017 None Full Exam - General 1994 Constitutional general appearance Overall: well nourished 09/18/2017 None Full Exam - General 1994 Eyes pupils and irises Overall: pupils equal, round, reactive to light and accomodation 09/18/2017 None Full Exam - General 1994 Ears/Nose/Throat otoscopic exam Overall: external auditory canals clear 09/18/2017 None Full Exam - General 1994 Ears/Nose/Throat otoscopic exam Overall: tympanic membranes clear 09/18/2017 None Full Exam - General 1994 Ears/Nose/Throat oral cavity/pharynx/larynx Overall: oral mucosa clear 09/18/2017 None Full Exam - General 1994 Ears/Nose/Throat oral cavity/pharynx/larynx Overall: oropharyngeal mucosa clear 09/18/2017 None Full Exam - General 1994 Ears/Nose/Throat oral cavity/pharynx/larynx Overall: no masses 09/18/2017 None Full Exam - General 1994 Respiratory auscultation Overall: breath sounds clear bilaterally 09/18/2017 None Full Exam - General 1994 Respiratory respiratory effort/rhythm Overall: no retractions 09/18/2017 None Full Exam - General 1994 Respiratory respiratory effort/rhythm Overall: normal rate 09/18/2017 None Full Exam - General 1994 Cardiovascular auscultation of heart Overall: regular rate 09/18/2017 None Full Exam - General 1994 Cardiovascular auscultation of heart Overall: normal heart sounds 09/18/2017 None Full Exam - General 1994 Cardiovascular auscultation of heart Overall: no murmurs 09/18/2017 None Full Exam - General 1994 Abdomen abdominal exam Overall: no tenderness 09/18/2017 None Full Exam - General 1994 Abdomen abdominal exam Overall: normal bowel sounds 09/18/2017 None Full Exam - General 1994 Abdomen abdominal exam Contour: rounded 09/18/2017 None Full Exam - General 1994 Musculoskeletal digits and nails Overall: no clubbing 09/18/2017 None Full Exam - General 1994 Musculoskeletal digits and nails Overall: digits benign 09/18/2017 None Full Exam - General 1994 Musculoskeletal spine, ribs and pelvis Overall: spine benign 09/18/2017 None Full Exam - General 1994 Musculoskeletal spine, ribs and pelvis Overall: sacroiliac joint benign 09/18/2017 None Full Exam - General 1994 Musculoskeletal spine, ribs and pelvis Overall: good posture 09/18/2017 None Full Exam - General 1994 Musculoskeletal gait and station Overall: normal gait 09/18/2017 None Full Exam - General 1994 Musculoskeletal gait and station Overall: normal station 09/18/2017 None Full Exam - General 1994 Neurologic gait Overall: no ataxia, no unsteadiness 09/18/2017 None Full Exam - General 1994 Psychiatric orientation/consciousness Overall: oriented to person, place and time 09/18/2017 None Full Exam - General 1994 Psychiatric mood and affect Overall: normal mood and affect 09/18/2017 None Full Exam - General 1994 Constitutional general appearance Overall: well developed 07/21/2017 None Full Exam - General 1994 Constitutional general appearance Overall: in no acute distress 07/21/2017 None Full Exam - General 1994 Constitutional general appearance Overall: well nourished 07/21/2017 None Full Exam - General 1994 Eyes pupils and irises Overall: pupils equal, round, reactive to light and accomodation 07/21/2017 None Full Exam - General 1994 Ears/Nose/Throat otoscopic exam Overall: external auditory canals clear 07/21/2017 None Full Exam - General 1994 Ears/Nose/Throat otoscopic exam Overall: tympanic membranes clear 07/21/2017 None Full Exam - General 1994 Ears/Nose/Throat oral cavity/pharynx/larynx Overall: oral mucosa clear 07/21/2017 None Full Exam - General 1994 Ears/Nose/Throat oral cavity/pharynx/larynx Overall: oropharyngeal mucosa clear 07/21/2017 None Full Exam - General 1994 Ears/Nose/Throat oral cavity/pharynx/larynx Overall: no masses 07/21/2017 None Full Exam - General 1994 Respiratory auscultation Overall: breath sounds clear bilaterally 07/21/2017 None Full Exam - General 1994 Respiratory respiratory effort/rhythm Overall: no retractions 07/21/2017 None Full Exam - General 1994 Respiratory respiratory effort/rhythm Overall: normal rate 07/21/2017 None Full Exam - General 1994 Cardiovascular auscultation of heart Overall: regular rate 07/21/2017 None Full Exam - General 1994 Cardiovascular auscultation of heart Overall: normal heart sounds 07/21/2017 None Full Exam - General 1994 Cardiovascular auscultation of heart Overall: no murmurs 07/21/2017 None Full Exam - General 1994 Abdomen abdominal exam Overall: no tenderness 07/21/2017 None Full Exam - General 1994 Abdomen abdominal exam Overall: normal bowel sounds 07/21/2017 None Full Exam - General 1994 Abdomen abdominal exam Contour: rounded 07/21/2017 None Full Exam - General 1994 Musculoskeletal digits and nails Overall: no clubbing 07/21/2017 None Full Exam - General 1994 Musculoskeletal digits and nails Overall: digits benign 07/21/2017 None Full Exam - General 1994 Musculoskeletal spine, ribs and pelvis Overall: spine benign 07/21/2017 None Full Exam - General 1994 Musculoskeletal spine, ribs and pelvis Overall: sacroiliac joint benign 07/21/2017 None Full Exam - General 1994 Musculoskeletal spine, ribs and pelvis Overall: good posture 07/21/2017 None Full Exam - General 1994 Musculoskeletal gait and station Overall: normal gait 07/21/2017 None Full Exam - General 1994 Musculoskeletal gait and station Overall: normal station 07/21/2017 None Full Exam - General 1994 Neurologic gait Overall: no ataxia, no unsteadiness 07/21/2017 None Full Exam - General 1994 Psychiatric orientation/consciousness Overall: oriented to person, place and time 07/21/2017 None Full Exam - General 1994 Psychiatric mood and affect Overall: normal mood and affect 07/21/2017 None Full Exam - General 1994 Constitutional general appearance Overall: well developed 05/04/2017 None Full Exam - General 1994 Constitutional general appearance Overall: in no acute distress 05/04/2017 None Full Exam - General 1994 Constitutional general appearance Overall: well nourished 05/04/2017 None Full Exam - General 1994 Eyes pupils and irises Overall: pupils equal, round, reactive to light and accomodation 05/04/2017 None Full Exam - General 1994 Ears/Nose/Throat otoscopic exam Overall: external auditory canals clear 05/04/2017 None Full Exam - General 1994 Ears/Nose/Throat otoscopic exam Overall: tympanic membranes clear 05/04/2017 None Full Exam - General 1994 Ears/Nose/Throat oral cavity/pharynx/larynx Overall: oral mucosa clear 05/04/2017 None Full Exam - General 1994 Ears/Nose/Throat oral cavity/pharynx/larynx Overall: oropharyngeal mucosa clear 05/04/2017 None Full Exam - General 1994 Ears/Nose/Throat oral cavity/pharynx/larynx Overall: no masses 05/04/2017 None Full Exam - General 1994 Respiratory auscultation Overall: breath sounds clear bilaterally 05/04/2017 None Full Exam - General 1994 Respiratory respiratory effort/rhythm Overall: no retractions 05/04/2017 None Full Exam - General 1994 Respiratory respiratory effort/rhythm Overall: normal rate 05/04/2017 None Full Exam - General 1994 Cardiovascular auscultation of heart Overall: regular rate 05/04/2017 None Full Exam - General 1994 Cardiovascular auscultation of heart Overall: normal heart sounds 05/04/2017 None Full Exam - General 1994 Cardiovascular auscultation of heart Overall: no murmurs 05/04/2017 None Full Exam - General 1994 Abdomen abdominal exam Overall: no tenderness 05/04/2017 None Full Exam - General 1994 Abdomen abdominal exam Overall: normal bowel sounds 05/04/2017 None Full Exam - General 1994 Abdomen abdominal exam Contour: rounded 05/04/2017 None Full Exam - General 1994 Musculoskeletal digits and nails Overall: no clubbing 05/04/2017 None Full Exam - General 1994 Musculoskeletal digits and nails Overall: digits benign 05/04/2017 None Full Exam - General 1994 Musculoskeletal spine, ribs and pelvis Overall: spine benign 05/04/2017 None Full Exam - General 1994 Musculoskeletal spine, ribs and pelvis Overall: sacroiliac joint benign 05/04/2017 None Full Exam - General 1994 Musculoskeletal spine, ribs and pelvis Overall: good posture 05/04/2017 None Full Exam - General 1994 Musculoskeletal gait and station Overall: normal gait 05/04/2017 None Full Exam - General 1994 Musculoskeletal gait and station Overall: normal station 05/04/2017 None Full Exam - General 1994 Neurologic gait Overall: no ataxia, no unsteadiness 05/04/2017 None Full Exam - General 1994 Psychiatric orientation/consciousness Overall: oriented to person, place and time 05/04/2017 None Full Exam - General 1994 Psychiatric mood and affect Overall: normal mood and affect 05/04/2017 None Full Exam - General 1994 Constitutional general appearance Overall: well developed 03/30/2017 None Full Exam - General 1994 Constitutional general appearance Overall: in no acute distress 03/30/2017 None Full Exam - General 1994 Constitutional general appearance Overall: well nourished 03/30/2017 None Full Exam - General 1994 Eyes pupils and irises Overall: pupils equal, round, reactive to light and accomodation 03/30/2017 None Full Exam - General 1994 Ears/Nose/Throat oral cavity/pharynx/larynx Overall: oral mucosa clear 03/30/2017 None Full Exam - General 1994 Ears/Nose/Throat oral cavity/pharynx/larynx Overall: oropharyngeal mucosa clear 03/30/2017 None Full Exam - General 1994 Ears/Nose/Throat oral cavity/pharynx/larynx Overall: no masses 03/30/2017 None Full Exam - General 1994 Respiratory auscultation Overall: breath sounds clear bilaterally 03/30/2017 None Full Exam - General 1994 Respiratory respiratory effort/rhythm Overall: no retractions 03/30/2017 None Full Exam - General 1994 Respiratory respiratory effort/rhythm Overall: normal rate 03/30/2017 None Full Exam - General 1994 Cardiovascular auscultation of heart Overall: regular rate 03/30/2017 None Full Exam - General 1994 Cardiovascular auscultation of heart Overall: normal heart sounds 03/30/2017 None Full Exam - General 1994 Cardiovascular auscultation of heart Overall: no murmurs 03/30/2017 None Full Exam - General 1994 Abdomen abdominal exam Contour: rounded 03/30/2017 None Full Exam - General 1994 Psychiatric orientation/consciousness Overall: oriented to person, place and time 03/30/2017 None Full Exam - General 1994 Psychiatric mood and affect Overall: normal mood and affect 03/30/2017 None Full Exam - General 1994 Constitutional general appearance Overall: well developed 03/02/2017 None Full Exam - General 1994 Constitutional general appearance Overall: in no acute distress 03/02/2017 None Full Exam - General 1994 Constitutional general appearance Overall: well nourished 03/02/2017 None Full Exam - General 1994 Eyes pupils and irises Overall: pupils equal, round, reactive to light and accomodation 03/02/2017 None Full Exam - General 1994 Ears/Nose/Throat otoscopic exam Overall: external auditory canals clear 03/02/2017 None Full Exam - General 1994 Ears/Nose/Throat otoscopic exam Overall: tympanic membranes clear 03/02/2017 None Full Exam - General 1994 Ears/Nose/Throat oral cavity/pharynx/larynx Overall: oral mucosa clear 03/02/2017 None Full Exam - General 1994 Ears/Nose/Throat oral cavity/pharynx/larynx Overall: oropharyngeal mucosa clear 03/02/2017 None Full Exam - General 1994 Ears/Nose/Throat oral cavity/pharynx/larynx Overall: no masses 03/02/2017 None Full Exam - General 1994 Respiratory auscultation Overall: breath sounds clear bilaterally 03/02/2017 None Full Exam - General 1994 Respiratory respiratory effort/rhythm Overall: no retractions 03/02/2017 None Full Exam - General 1994 Respiratory respiratory effort/rhythm Overall: normal rate 03/02/2017 None Full Exam - General 1994 Cardiovascular auscultation of heart Overall: regular rate 03/02/2017 None Full Exam - General 1994 Cardiovascular auscultation of heart Overall: normal heart sounds 03/02/2017 None Full Exam - General 1994 Cardiovascular auscultation of heart Overall: no murmurs 03/02/2017 None Full Exam - General 1994 Abdomen abdominal exam Overall: no tenderness 03/02/2017 None Full Exam - General 1994 Abdomen abdominal exam Overall: normal bowel sounds 03/02/2017 None Full Exam - General 1994 Abdomen abdominal exam Contour: rounded 03/02/2017 None Full Exam - General 1994 Musculoskeletal digits and nails Overall: no clubbing 03/02/2017 None Full Exam - General 1994 Musculoskeletal digits and nails Overall: digits benign 03/02/2017 None Full Exam - General 1994 Musculoskeletal spine, ribs and pelvis Overall: sacroiliac joint benign 03/02/2017 None Full Exam - General 1994 Musculoskeletal spine, ribs and pelvis Posture: lordosis 03/02/2017 None Full Exam - General 1994 Musculoskeletal gait and station Overall: normal gait 03/02/2017 None Full Exam - General 1994 Musculoskeletal gait and station Overall: normal station 03/02/2017 None Full Exam - General 1994 Neurologic gait Overall: no ataxia, no unsteadiness 03/02/2017 None Full Exam - General 1994 Psychiatric orientation/consciousness Overall: oriented to person, place and time 03/02/2017 None Full Exam - General 1994 Psychiatric mood and affect Overall: normal mood and affect 03/02/2017 None Full Exam - General 1994 Constitutional general appearance Overall: well developed 01/31/2017 None Full Exam - General 1994 Constitutional general appearance Overall: in no acute distress 01/31/2017 None Full Exam - General 1994 Constitutional general appearance Overall: well nourished 01/31/2017 None Full Exam - General 1994 Eyes pupils and irises Overall: pupils equal, round, reactive to light and accomodation 01/31/2017 None Full Exam - General 1994 Ears/Nose/Throat otoscopic exam Overall: external auditory canals clear 01/31/2017 None Full Exam - General 1994 Ears/Nose/Throat otoscopic exam Overall: tympanic membranes clear 01/31/2017 None Full Exam - General 1994 Ears/Nose/Throat oral cavity/pharynx/larynx Overall: oral mucosa clear 01/31/2017 None Full Exam - General 1994 Ears/Nose/Throat oral cavity/pharynx/larynx Overall: oropharyngeal mucosa clear 01/31/2017 None Full Exam - General 1994 Ears/Nose/Throat oral cavity/pharynx/larynx Overall: no masses 01/31/2017 None Full Exam - General 1994 Respiratory auscultation Overall: breath sounds clear bilaterally 01/31/2017 None Full Exam - General 1994 Respiratory respiratory effort/rhythm Overall: no retractions 01/31/2017 None Full Exam - General 1994 Respiratory respiratory effort/rhythm Overall: normal rate 01/31/2017 None Full Exam - General 1994 Cardiovascular auscultation of heart Overall: regular rate 01/31/2017 None Full Exam - General 1994 Cardiovascular auscultation of heart Overall: normal heart sounds 01/31/2017 None Full Exam - General 1994 Cardiovascular auscultation of heart Overall: no murmurs 01/31/2017 None Full Exam - General 1994 Abdomen abdominal exam Overall: no tenderness 01/31/2017 None Full Exam - General 1994 Abdomen abdominal exam Overall: normal bowel sounds 01/31/2017 None Full Exam - General 1994 Abdomen abdominal exam Contour: rounded 01/31/2017 None Full Exam - General 1994 Musculoskeletal digits and nails Overall: no clubbing 01/31/2017 None Full Exam - General 1994 Musculoskeletal digits and nails Overall: digits benign 01/31/2017 None Full Exam - General 1994 Musculoskeletal spine, ribs and pelvis Overall: spine benign 01/31/2017 None Full Exam - General 1994 Musculoskeletal spine, ribs and pelvis Overall: sacroiliac joint benign 01/31/2017 None Full Exam - General 1994 Musculoskeletal spine, ribs and pelvis Overall: good posture 01/31/2017 None Full Exam - General 1994 Musculoskeletal gait and station Overall: normal gait 01/31/2017 None Full Exam - General 1994 Musculoskeletal gait and station Overall: normal station 01/31/2017 None Full Exam - General 1994 Neurologic gait Overall: no ataxia, no unsteadiness 01/31/2017 None Full Exam - General 1994 Psychiatric orientation/consciousness Overall: oriented to person, place and time 01/31/2017 None Full Exam - General 1994 Psychiatric mood and affect Overall: normal mood and affect 01/31/2017 None Full Exam - General 1994 Constitutional general appearance Overall: well developed 10/25/2016 None Full Exam - General 1994 Constitutional general appearance Overall: in no acute distress 10/25/2016 None Full Exam - General 1994 Constitutional general appearance Overall: well nourished 10/25/2016 None Full Exam - General 1994 Eyes pupils and irises Overall: pupils equal, round, reactive to light and accomodation 10/25/2016 None Full Exam - General 1994 Ears/Nose/Throat otoscopic exam Overall: external auditory canals clear 10/25/2016 None Full Exam - General 1994 Ears/Nose/Throat otoscopic exam Overall: tympanic membranes clear 10/25/2016 None Full Exam - General 1994 Ears/Nose/Throat oral cavity/pharynx/larynx Overall: oral mucosa clear 10/25/2016 None Full Exam - General 1994 Ears/Nose/Throat oral cavity/pharynx/larynx Overall: oropharyngeal mucosa clear 10/25/2016 None Full Exam - General 1994 Ears/Nose/Throat oral cavity/pharynx/larynx Overall: no masses 10/25/2016 None Full Exam - General 1994 Respiratory auscultation Overall: breath sounds clear bilaterally 10/25/2016 None Full Exam - General 1994 Respiratory respiratory effort/rhythm Overall: no retractions 10/25/2016 None Full Exam - General 1994 Respiratory respiratory effort/rhythm Overall: normal rate 10/25/2016 None Full Exam - General 1994 Cardiovascular auscultation of heart Overall: regular rate 10/25/2016 None Full Exam - General 1994 Cardiovascular auscultation of heart Overall: normal heart sounds 10/25/2016 None Full Exam - General 1994 Cardiovascular auscultation of heart Overall: no murmurs 10/25/2016 None Full Exam - General 1994 Abdomen abdominal exam Overall: no tenderness 10/25/2016 None Full Exam - General 1994 Abdomen abdominal exam Overall: normal bowel sounds 10/25/2016 None Full Exam - General 1994 Abdomen abdominal exam Contour: rounded 10/25/2016 None Full Exam - General 1994 Musculoskeletal digits and nails Overall: no clubbing 10/25/2016 None Full Exam - General 1994 Musculoskeletal digits and nails Overall: digits benign 10/25/2016 None Full Exam - General 1994 Musculoskeletal spine, ribs and pelvis Overall: sacroiliac joint benign 10/25/2016 None Full Exam - General 1994 Musculoskeletal spine, ribs and pelvis Posture: lordosis 10/25/2016 None Full Exam - General 1994 Musculoskeletal gait and station Overall: normal gait 10/25/2016 None Full Exam - General 1994 Musculoskeletal gait and station Overall: normal station 10/25/2016 None Full Exam - General 1994 Neurologic gait Overall: no ataxia, no unsteadiness 10/25/2016 None Full Exam - General 1994 Psychiatric orientation/consciousness Overall: oriented to person, place and time 10/25/2016 None Full Exam - General 1994 Psychiatric mood and affect Overall: normal mood and affect 10/25/2016 None Full Exam - General 1994 Constitutional general appearance Overall: well developed 07/27/2016 None Full Exam - General 1994 Constitutional general appearance Overall: in no acute distress 07/27/2016 None Full Exam - General 1994 Constitutional general appearance Overall: well nourished 07/27/2016 None Full Exam - General 1994 Eyes pupils and irises Overall: pupils equal, round, reactive to light and accomodation 07/27/2016 None Full Exam - General 1994 Ears/Nose/Throat otoscopic exam Overall: external auditory canals clear 07/27/2016 None Full Exam - General 1994 Ears/Nose/Throat otoscopic exam Overall: tympanic membranes clear 07/27/2016 None Full Exam - General 1994 Ears/Nose/Throat oral cavity/pharynx/larynx Overall: oral mucosa clear 07/27/2016 None Full Exam - General 1994 Ears/Nose/Throat oral cavity/pharynx/larynx Overall: oropharyngeal mucosa clear 07/27/2016 None Full Exam - General 1994 Ears/Nose/Throat oral cavity/pharynx/larynx Overall: no masses 07/27/2016 None Full Exam - General 1994 Respiratory auscultation Overall: breath sounds clear bilaterally 07/27/2016 None Full Exam - General 1994 Respiratory respiratory effort/rhythm Overall: no retractions 07/27/2016 None Full Exam - General 1994 Respiratory respiratory effort/rhythm Overall: normal rate 07/27/2016 None Full Exam - General 1994 Cardiovascular auscultation of heart Overall: regular rate 07/27/2016 None Full Exam - General 1994 Cardiovascular auscultation of heart Overall: normal heart sounds 07/27/2016 None Full Exam - General 1994 Cardiovascular auscultation of heart Overall: no murmurs 07/27/2016 None Full Exam - General 1994 Abdomen abdominal exam Overall: no tenderness 07/27/2016 None Full Exam - General 1994 Abdomen abdominal exam Overall: normal bowel sounds 07/27/2016 None Full Exam - General 1994 Abdomen abdominal exam Contour: rounded 07/27/2016 None Full Exam - General 1994 Musculoskeletal digits and nails Overall: no clubbing 07/27/2016 None Full Exam - General 1994 Musculoskeletal digits and nails Overall: digits benign 07/27/2016 None Full Exam - General 1994 Musculoskeletal spine, ribs and pelvis Overall: sacroiliac joint benign 07/27/2016 None Full Exam - General 1994 Musculoskeletal spine, ribs and pelvis Posture: lordosis 07/27/2016 None Full Exam - General 1994 Musculoskeletal gait and station Overall: normal gait 07/27/2016 None Full Exam - General 1994 Musculoskeletal gait and station Overall: normal station 07/27/2016 None Full Exam - General 1994 Neurologic gait Overall: no ataxia, no unsteadiness 07/27/2016 None Full Exam - General 1994 Psychiatric orientation/consciousness Overall: oriented to person, place and time 07/27/2016 None Full Exam - General 1994 Psychiatric mood and affect Overall: normal mood and affect 07/27/2016 None Full Exam - General 1994 Constitutional general appearance Overall: well developed 05/26/2016 None Full Exam - General 1994 Constitutional general appearance Overall: in no acute distress 05/26/2016 None Full Exam - General 1994 Constitutional general appearance Overall: well nourished 05/26/2016 None Full Exam - General 1994 Eyes pupils and irises Overall: pupils equal, round, reactive to light and accomodation 05/26/2016 None Full Exam - General 1994 Ears/Nose/Throat otoscopic exam Overall: external auditory canals clear 05/26/2016 None Full Exam - General 1994 Ears/Nose/Throat otoscopic exam Overall: tympanic membranes clear 05/26/2016 None Full Exam - General 1994 Ears/Nose/Throat oral cavity/pharynx/larynx Overall: oral mucosa clear 05/26/2016 None Full Exam - General 1994 Ears/Nose/Throat oral cavity/pharynx/larynx Overall: oropharyngeal mucosa clear 05/26/2016 None Full Exam - General 1994 Ears/Nose/Throat oral cavity/pharynx/larynx Overall: no masses 05/26/2016 None Full Exam - General 1994 Respiratory auscultation Overall: breath sounds clear bilaterally 05/26/2016 None Full Exam - General 1994 Respiratory respiratory effort/rhythm Overall: no retractions 05/26/2016 None Full Exam - General 1994 Respiratory respiratory effort/rhythm Overall: normal rate 05/26/2016 None Full Exam - General 1994 Cardiovascular auscultation of heart Overall: regular rate 05/26/2016 None Full Exam - General 1994 Cardiovascular auscultation of heart Overall: normal heart sounds 05/26/2016 None Full Exam - General 1994 Cardiovascular auscultation of heart Overall: no murmurs 05/26/2016 None Full Exam - General 1994 Abdomen abdominal exam Overall: no tenderness 05/26/2016 None Full Exam - General 1994 Abdomen abdominal exam Overall: normal bowel sounds 05/26/2016 None Full Exam - General 1994 Abdomen abdominal exam Contour: rounded 05/26/2016 None Full Exam - General 1994 Musculoskeletal digits and nails Overall: no clubbing 05/26/2016 None Full Exam - General 1994 Musculoskeletal digits and nails Overall: digits benign 05/26/2016 None Full Exam - General 1994 Musculoskeletal spine, ribs and pelvis Overall: sacroiliac joint benign 05/26/2016 None Full Exam - General 1994 Musculoskeletal spine, ribs and pelvis Posture: lordosis 05/26/2016 None Full Exam - General 1994 Musculoskeletal gait and station Overall: normal gait 05/26/2016 None Full Exam - General 1994 Musculoskeletal gait and station Overall: normal station 05/26/2016 None Full Exam - General 1994 Neurologic gait Overall: no ataxia, no unsteadiness 05/26/2016 None Full Exam - General 1994 Psychiatric orientation/consciousness Overall: oriented to person, place and time 05/26/2016 None Full Exam - General 1994 Psychiatric mood and affect Overall: normal mood and affect 05/26/2016 None Full Exam - General 1994 Constitutional general appearance Overall: well developed 05/12/2016 None Full Exam - General 1994 Constitutional general appearance Overall: in no acute distress 05/12/2016 None Full Exam - General 1994 Constitutional general appearance Overall: well nourished 05/12/2016 None Full Exam - General 1994 Eyes pupils and irises Overall: pupils equal, round, reactive to light and accomodation 05/12/2016 None Full Exam - General 1994 Ears/Nose/Throat otoscopic exam Overall: external auditory canals clear 05/12/2016 None Full Exam - General 1994 Ears/Nose/Throat otoscopic exam Overall: tympanic membranes clear 05/12/2016 None Full Exam - General 1994 Ears/Nose/Throat oral cavity/pharynx/larynx Overall: oral mucosa clear 05/12/2016 None Full Exam - General 1994 Ears/Nose/Throat oral cavity/pharynx/larynx Overall: oropharyngeal mucosa clear 05/12/2016 None Full Exam - General 1994 Ears/Nose/Throat oral cavity/pharynx/larynx Overall: no masses 05/12/2016 None Full Exam - General 1994 Respiratory auscultation Overall: breath sounds clear bilaterally 05/12/2016 None Full Exam - General 1994 Respiratory respiratory effort/rhythm Overall: no retractions 05/12/2016 None Full Exam - General 1994 Respiratory respiratory effort/rhythm Overall: normal rate 05/12/2016 None Full Exam - General 1994 Cardiovascular auscultation of heart Overall: regular rate 05/12/2016 None Full Exam - General 1994 Cardiovascular auscultation of heart Overall: normal heart sounds 05/12/2016 None Full Exam - General 1994 Cardiovascular auscultation of heart Overall: no murmurs 05/12/2016 None Full Exam - General 1994 Abdomen abdominal exam Overall: no tenderness 05/12/2016 None Full Exam - General 1994 Abdomen abdominal exam Overall: normal bowel sounds 05/12/2016 None Full Exam - General 1994 Abdomen abdominal exam Contour: rounded 05/12/2016 None Full Exam - General 1994 Musculoskeletal digits and nails Overall: no clubbing 05/12/2016 None Full Exam - General 1994 Musculoskeletal digits and nails Overall: digits benign 05/12/2016 None Full Exam - General 1994 Musculoskeletal spine, ribs and pelvis Overall: sacroiliac joint benign 05/12/2016 None Full Exam - General 1994 Musculoskeletal spine, ribs and pelvis Posture: lordosis 05/12/2016 None Full Exam - General 1994 Musculoskeletal gait and station Overall: normal gait 05/12/2016 None Full Exam - General 1994 Musculoskeletal gait and station Overall: normal station 05/12/2016 None Full Exam - General 1994 Neurologic gait Overall: no ataxia, no unsteadiness 05/12/2016 None Full Exam - General 1994 Psychiatric orientation/consciousness Overall: oriented to person, place and time 05/12/2016 None Full Exam - General 1994 Psychiatric mood and affect Overall: normal mood and affect 05/12/2016 None Full Exam - General 1994 Constitutional general appearance Overall: well developed 02/23/2016 None Full Exam - General 1994 Constitutional general appearance Overall: in no acute distress 02/23/2016 None Full Exam - General 1994 Constitutional general appearance Overall: well nourished 02/23/2016 None Full Exam - General 1994 Eyes pupils and irises Overall: pupils equal, round, reactive to light and accomodation 02/23/2016 None Full Exam - General 1994 Ears/Nose/Throat otoscopic exam Overall: external auditory canals clear 02/23/2016 None Full Exam - General 1994 Ears/Nose/Throat otoscopic exam Overall: tympanic membranes clear 02/23/2016 None Full Exam - General 1994 Ears/Nose/Throat oral cavity/pharynx/larynx Overall: oral mucosa clear 02/23/2016 None Full Exam - General 1994 Ears/Nose/Throat oral cavity/pharynx/larynx Overall: oropharyngeal mucosa clear 02/23/2016 None Full Exam - General 1994 Ears/Nose/Throat oral cavity/pharynx/larynx Overall: no masses 02/23/2016 None Full Exam - General 1994 Respiratory auscultation Overall: breath sounds clear bilaterally 02/23/2016 None Full Exam - General 1994 Respiratory respiratory effort/rhythm Overall: no retractions 02/23/2016 None Full Exam - General 1994 Respiratory respiratory effort/rhythm Overall: normal rate 02/23/2016 None Full Exam - General 1994 Cardiovascular auscultation of heart Overall: regular rate 02/23/2016 None Full Exam - General 1994 Cardiovascular auscultation of heart Overall: normal heart sounds 02/23/2016 None Full Exam - General 1994 Cardiovascular auscultation of heart Overall: no murmurs 02/23/2016 None Full Exam - General 1994 Abdomen abdominal exam Overall: no tenderness 02/23/2016 None Full Exam - General 1994 Abdomen abdominal exam Overall: normal bowel sounds 02/23/2016 None Full Exam - General 1994 Abdomen abdominal exam Contour: rounded 02/23/2016 None Full Exam - General 1994 Musculoskeletal digits and nails Overall: no clubbing 02/23/2016 None Full Exam - General 1994 Musculoskeletal digits and nails Overall: digits benign 02/23/2016 None Full Exam - General 1994 Musculoskeletal spine, ribs and pelvis Overall: sacroiliac joint benign 02/23/2016 None Full Exam - General 1994 Musculoskeletal gait and station Overall: normal gait 02/23/2016 None Full Exam - General 1994 Musculoskeletal gait and station Overall: normal station 02/23/2016 None Full Exam - General 1994 Neurologic gait Overall: no ataxia, no unsteadiness 02/23/2016 None Full Exam - General 1994 Psychiatric orientation/consciousness Overall: oriented to person, place and time 02/23/2016 None Full Exam - General 1994 Psychiatric mood and affect Overall: normal mood and affect 02/23/2016 None Full Exam - General 1994 Musculoskeletal spine, ribs and pelvis Posture: lordosis 02/23/2016 None Full Exam - General 1994 Constitutional general appearance Overall: well developed 12/10/2015 None Full Exam - General 1994 Constitutional general appearance Overall: in no acute distress 12/10/2015 None Full Exam - General 1994 Constitutional general appearance Overall: well nourished 12/10/2015 None Full Exam - General 1994 Eyes pupils and irises Overall: pupils equal, round, reactive to light and accomodation 12/10/2015 None Full Exam - General 1994 Ears/Nose/Throat otoscopic exam Overall: external auditory canals clear 12/10/2015 None Full Exam - General 1994 Ears/Nose/Throat otoscopic exam Overall: tympanic membranes clear 12/10/2015 None Full Exam - General 1994 Ears/Nose/Throat oral cavity/pharynx/larynx Overall: oral mucosa clear 12/10/2015 None Full Exam - General 1994 Ears/Nose/Throat oral cavity/pharynx/larynx Overall: oropharyngeal mucosa clear 12/10/2015 None Full Exam - General 1994 Ears/Nose/Throat oral cavity/pharynx/larynx Overall: no masses 12/10/2015 None Full Exam - General 1994 Respiratory auscultation Overall: breath sounds clear bilaterally 12/10/2015 None Full Exam - General 1994 Respiratory respiratory effort/rhythm Overall: no retractions 12/10/2015 None Full Exam - General 1994 Respiratory respiratory effort/rhythm Overall: normal rate 12/10/2015 None Full Exam - General 1994 Cardiovascular auscultation of heart Overall: regular rate 12/10/2015 None Full Exam - General 1994 Cardiovascular auscultation of heart Overall: normal heart sounds 12/10/2015 None Full Exam - General 1994 Cardiovascular auscultation of heart Overall: no murmurs 12/10/2015 None Full Exam - General 1994 Abdomen abdominal exam Overall: no tenderness 12/10/2015 None Full Exam - General 1994 Abdomen abdominal exam Overall: normal bowel sounds 12/10/2015 None Full Exam - General 1994 Abdomen abdominal exam Contour: rounded 12/10/2015 None Full Exam - General 1994 Musculoskeletal digits and nails Overall: no clubbing 12/10/2015 None Full Exam - General 1994 Musculoskeletal digits and nails Overall: digits benign 12/10/2015 None Full Exam - General 1994 Musculoskeletal spine, ribs and pelvis Overall: spine benign 12/10/2015 None Full Exam - General 1994 Musculoskeletal spine, ribs and pelvis Overall: sacroiliac joint benign 12/10/2015 None Full Exam - General 1994 Musculoskeletal spine, ribs and pelvis Overall: good posture 12/10/2015 None Full Exam - General 1994 Musculoskeletal gait and station Overall: normal gait 12/10/2015 None Full Exam - General 1994 Musculoskeletal gait and station Overall: normal station 12/10/2015 None Full Exam - General 1994 Neurologic gait Overall: no ataxia, no unsteadiness 12/10/2015 None Full Exam - General 1994 Psychiatric orientation/consciousness Overall: oriented to person, place and time 12/10/2015 None Full Exam - General 1994 Psychiatric mood and affect Overall: normal mood and affect 12/10/2015 None Full Exam - General 1994 Constitutional general appearance Overall: well developed 11/10/2015 None Full Exam - General 1994 Constitutional general appearance Overall: in no acute distress 11/10/2015 None Full Exam - General 1994 Constitutional general appearance Overall: well nourished 11/10/2015 None Full Exam - General 1994 Eyes pupils and irises Overall: pupils equal, round, reactive to light and accomodation 11/10/2015 None Full Exam - General 1994 Ears/Nose/Throat otoscopic exam Overall: external auditory canals clear 11/10/2015 None Full Exam - General 1994 Ears/Nose/Throat otoscopic exam Overall: tympanic membranes clear 11/10/2015 None Full Exam - General 1994 Ears/Nose/Throat oral cavity/pharynx/larynx Overall: oral mucosa clear 11/10/2015 None Full Exam - General 1994 Ears/Nose/Throat oral cavity/pharynx/larynx Overall: oropharyngeal mucosa clear 11/10/2015 None Full Exam - General 1994 Ears/Nose/Throat oral cavity/pharynx/larynx Overall: no masses 11/10/2015 None Full Exam - General 1994 Respiratory auscultation Overall: breath sounds clear bilaterally 11/10/2015 None Full Exam - General 1994 Respiratory respiratory effort/rhythm Overall: no retractions 11/10/2015 None Full Exam - General 1994 Respiratory respiratory effort/rhythm Overall: normal rate 11/10/2015 None Full Exam - General 1994 Cardiovascular auscultation of heart Overall: regular rate 11/10/2015 None Full Exam - General 1994 Cardiovascular auscultation of heart Overall: normal heart sounds 11/10/2015 None Full Exam - General 1994 Cardiovascular auscultation of heart Overall: no murmurs 11/10/2015 None Full Exam - General 1994 Abdomen abdominal exam Overall: no tenderness 11/10/2015 None Full Exam - General 1994 Abdomen abdominal exam Overall: normal bowel sounds 11/10/2015 None Full Exam - General 1994 Abdomen abdominal exam Contour: rounded 11/10/2015 None Full Exam - General 1994 Musculoskeletal digits and nails Overall: no clubbing 11/10/2015 None Full Exam - General 1994 Musculoskeletal digits and nails Overall: digits benign 11/10/2015 None Full Exam - General 1994 Musculoskeletal spine, ribs and pelvis Overall: spine benign 11/10/2015 None Full Exam - General 1994 Musculoskeletal spine, ribs and pelvis Overall: sacroiliac joint benign 11/10/2015 None Full Exam - General 1994 Musculoskeletal spine, ribs and pelvis Overall: good posture 11/10/2015 None Full Exam - General 1994 Musculoskeletal gait and station Overall: normal gait 11/10/2015 None Full Exam - General 1994 Musculoskeletal gait and station Overall: normal station 11/10/2015 None Full Exam - General 1994 Neurologic gait Overall: no ataxia, no unsteadiness 11/10/2015 None Full Exam - General 1994 Psychiatric orientation/consciousness Overall: oriented to person, place and time 11/10/2015 None Full Exam - General 1994 Psychiatric mood and affect Overall: normal mood and affect 11/10/2015 None Full Exam - General 1994 Constitutional general appearance Overall: well developed 08/07/2015 None Full Exam - General 1994 Constitutional general appearance Overall: in no acute distress 08/07/2015 None Full Exam - General 1994 Constitutional general appearance Overall: well nourished 08/07/2015 None Full Exam - General 1994 Eyes pupils and irises Overall: pupils equal, round, reactive to light and accomodation 08/07/2015 None Full Exam - General 1994 Ears/Nose/Throat otoscopic exam Overall: external auditory canals clear 08/07/2015 None Full Exam - General 1994 Ears/Nose/Throat otoscopic exam Overall: tympanic membranes clear 08/07/2015 None Full Exam - General 1994 Ears/Nose/Throat oral cavity/pharynx/larynx Overall: oral mucosa clear 08/07/2015 None Full Exam - General 1994 Ears/Nose/Throat oral cavity/pharynx/larynx Overall: oropharyngeal mucosa clear 08/07/2015 None Full Exam - General 1994 Ears/Nose/Throat oral cavity/pharynx/larynx Overall: no masses 08/07/2015 None Full Exam - General 1994 Respiratory auscultation Overall: breath sounds clear bilaterally 08/07/2015 None Full Exam - General 1994 Respiratory respiratory effort/rhythm Overall: no retractions 08/07/2015 None Full Exam - General 1994 Respiratory respiratory effort/rhythm Overall: normal rate 08/07/2015 None Full Exam - General 1994 Cardiovascular auscultation of heart Overall: regular rate 08/07/2015 None Full Exam - General 1994 Cardiovascular auscultation of heart Overall: normal heart sounds 08/07/2015 None Full Exam - General 1994 Cardiovascular auscultation of heart Overall: no murmurs 08/07/2015 None Full Exam - General 1994 Abdomen abdominal exam Overall: no tenderness 08/07/2015 None Full Exam - General 1994 Abdomen abdominal exam Overall: normal bowel sounds 08/07/2015 None Full Exam - General 1994 Abdomen abdominal exam Contour: rounded 08/07/2015 None Full Exam - General 1994 Musculoskeletal digits and nails Overall: no clubbing 08/07/2015 None Full Exam - General 1994 Musculoskeletal digits and nails Overall: digits benign 08/07/2015 None Full Exam - General 1994 Musculoskeletal spine, ribs and pelvis Overall: spine benign 08/07/2015 None Full Exam - General 1994 Musculoskeletal spine, ribs and pelvis Overall: sacroiliac joint benign 08/07/2015 None Full Exam - General 1994 Musculoskeletal spine, ribs and pelvis Overall: good posture 08/07/2015 None Full Exam - General 1994 Musculoskeletal gait and station Overall: normal gait 08/07/2015 None Full Exam - General 1994 Musculoskeletal gait and station Overall: normal station 08/07/2015 None Full Exam - General 1994 Neurologic gait Overall: no ataxia, no unsteadiness 08/07/2015 None Full Exam - General 1994 Psychiatric orientation/consciousness Overall: oriented to person, place and time 08/07/2015 None Full Exam - General 1994 Psychiatric mood and affect Overall: normal mood and affect 08/07/2015 None Full Exam - General 1994 Constitutional general appearance Overall: well developed 07/07/2015 None Full Exam - General 1994 Constitutional general appearance Overall: in no acute distress 07/07/2015 None Full Exam - General 1994 Constitutional general appearance Overall: well nourished 07/07/2015 None Full Exam - General 1994 Eyes pupils and irises Overall: pupils equal, round, reactive to light and accomodation 07/07/2015 None Full Exam - General 1994 Ears/Nose/Throat otoscopic exam Overall: external auditory canals clear 07/07/2015 None Full Exam - General 1994 Ears/Nose/Throat otoscopic exam Overall: tympanic membranes clear 07/07/2015 None Full Exam - General 1994 Ears/Nose/Throat oral cavity/pharynx/larynx Overall: oral mucosa clear 07/07/2015 None Full Exam - General 1994 Ears/Nose/Throat oral cavity/pharynx/larynx Overall: oropharyngeal mucosa clear 07/07/2015 None Full Exam - General 1994 Ears/Nose/Throat oral cavity/pharynx/larynx Overall: no masses 07/07/2015 None Full Exam - General 1994 Respiratory auscultation Overall: breath sounds clear bilaterally 07/07/2015 None Full Exam - General 1994 Respiratory respiratory effort/rhythm Overall: no retractions 07/07/2015 None Full Exam - General 1994 Respiratory respiratory effort/rhythm Overall: normal rate 07/07/2015 None Full Exam - General 1994 Cardiovascular auscultation of heart Overall: regular rate 07/07/2015 None Full Exam - General 1994 Cardiovascular auscultation of heart Overall: normal heart sounds 07/07/2015 None Full Exam - General 1994 Cardiovascular auscultation of heart Overall: no murmurs 07/07/2015 None Full Exam - General 1994 Abdomen abdominal exam Overall: no tenderness 07/07/2015 None Full Exam - General 1994 Abdomen abdominal exam Overall: normal bowel sounds 07/07/2015 None Full Exam - General 1994 Abdomen abdominal exam Contour: rounded 07/07/2015 None Full Exam - General 1994 Musculoskeletal digits and nails Overall: no clubbing 07/07/2015 None Full Exam - General 1994 Musculoskeletal digits and nails Overall: digits benign 07/07/2015 None Full Exam - General 1994 Musculoskeletal spine, ribs and pelvis Overall: spine benign 07/07/2015 None Full Exam - General 1994 Musculoskeletal spine, ribs and pelvis Overall: sacroiliac joint benign 07/07/2015 None Full Exam - General 1994 Musculoskeletal spine, ribs and pelvis Overall: good posture 07/07/2015 None Full Exam - General 1994 Musculoskeletal gait and station Overall: normal gait 07/07/2015 None Full Exam - General 1994 Musculoskeletal gait and station Overall: normal station 07/07/2015 None Full Exam - General 1994 Neurologic gait Overall: no ataxia, no unsteadiness 07/07/2015 None Full Exam - General 1994 Psychiatric orientation/consciousness Overall: oriented to person, place and time 07/07/2015 None Full Exam - General 1994 Psychiatric mood and affect Overall: normal mood and affect 07/07/2015 None Full Exam - General 1994 Constitutional general appearance Overall: well developed 04/02/2015 None Full Exam - General 1994 Constitutional general appearance Overall: in no acute distress 04/02/2015 None Full Exam - General 1994 Constitutional general appearance Overall: well nourished 04/02/2015 None Full Exam - General 1994 Constitutional general appearance Hygiene/Attention to Grooming: good hygiene 04/02/2015 None Full Exam - General 1994 Eyes pupils and irises Overall: pupils equal, round, reactive to light and accomodation 04/02/2015 None Full Exam - General 1994 Ears/Nose/Throat otoscopic exam Overall: external auditory canals clear 04/02/2015 None Full Exam - General 1994 Ears/Nose/Throat otoscopic exam Overall: tympanic membranes clear 04/02/2015 None Full Exam - General 1994 Ears/Nose/Throat oral cavity/pharynx/larynx Overall: oral mucosa clear 04/02/2015 None Full Exam - General 1994 Ears/Nose/Throat oral cavity/pharynx/larynx Overall: oropharyngeal mucosa clear 04/02/2015 None Full Exam - General 1994 Ears/Nose/Throat oral cavity/pharynx/larynx Overall: no masses 04/02/2015 None Full Exam - General 1994 Respiratory auscultation Overall: breath sounds clear bilaterally 04/02/2015 None Full Exam - General 1994 Respiratory respiratory effort/rhythm Overall: no retractions 04/02/2015 None Full Exam - General 1994 Respiratory respiratory effort/rhythm Overall: normal rate 04/02/2015 None Full Exam - General 1994 Cardiovascular auscultation of heart Overall: regular rate 04/02/2015 None Full Exam - General 1994 Cardiovascular auscultation of heart Overall: normal heart sounds 04/02/2015 None Full Exam - General 1994 Abdomen abdominal exam Overall: no tenderness 04/02/2015 None Full Exam - General 1994 Abdomen abdominal exam Overall: normal bowel sounds 04/02/2015 None Full Exam - General 1994 Abdomen abdominal exam Contour: rounded 04/02/2015 None Full Exam - General 1994 Neurologic gait Overall: no ataxia, no unsteadiness 04/02/2015 None Full Exam - General 1994 Psychiatric orientation/consciousness Overall: oriented to person, place and time 04/02/2015 None Full Exam - General 1994 Psychiatric mood and affect Overall: normal mood and affect 04/02/2015 None Full Exam - General 1994 Constitutional general appearance Overall: well developed 12/23/2014 None Full Exam - General 1994 Constitutional general appearance Overall: in no acute distress 12/23/2014 None Full Exam - General 1994 Constitutional general appearance Overall: well nourished 12/23/2014 None Full Exam - General 1994 Eyes pupils and irises Overall: pupils equal, round, reactive to light and accomodation 12/23/2014 None Full Exam - General 1994 Ears/Nose/Throat otoscopic exam Overall: external auditory canals clear 12/23/2014 None Full Exam - General 1994 Ears/Nose/Throat otoscopic exam Overall: tympanic membranes clear 12/23/2014 None Full Exam - General 1994 Ears/Nose/Throat oral cavity/pharynx/larynx Overall: oral mucosa clear 12/23/2014 None Full Exam - General 1994 Ears/Nose/Throat oral cavity/pharynx/larynx Overall: oropharyngeal mucosa clear 12/23/2014 None Full Exam - General 1994 Ears/Nose/Throat oral cavity/pharynx/larynx Overall: no masses 12/23/2014 None Full Exam - General 1994 Respiratory auscultation Overall: breath sounds clear bilaterally 12/23/2014 None Full Exam - General 1994 Respiratory respiratory effort/rhythm Overall: no retractions 12/23/2014 None Full Exam - General 1994 Respiratory respiratory effort/rhythm Overall: normal rate 12/23/2014 None Full Exam - General 1994 Cardiovascular auscultation of heart Overall: regular rate 12/23/2014 None Full Exam - General 1994 Cardiovascular auscultation of heart Overall: normal heart sounds 12/23/2014 None Full Exam - General 1994 Cardiovascular auscultation of heart Overall: no murmurs 12/23/2014 None Full Exam - General 1994 Abdomen abdominal exam Overall: no tenderness 12/23/2014 None Full Exam - General 1994 Abdomen abdominal exam Overall: normal bowel sounds 12/23/2014 None Full Exam - General 1994 Abdomen abdominal exam Contour: rounded 12/23/2014 None Full Exam - General 1994 Musculoskeletal digits and nails Overall: no clubbing 12/23/2014 None Full Exam - General 1994 Musculoskeletal digits and nails Overall: digits benign 12/23/2014 None Full Exam - General 1994 Musculoskeletal spine, ribs and pelvis Overall: spine benign 12/23/2014 None Full Exam - General 1994 Musculoskeletal spine, ribs and pelvis Overall: sacroiliac joint benign 12/23/2014 None Full Exam - General 1994 Musculoskeletal spine, ribs and pelvis Overall: good posture 12/23/2014 None Full Exam - General 1994 Musculoskeletal gait and station Overall: normal gait 12/23/2014 None Full Exam - General 1994 Musculoskeletal gait and station Overall: normal station 12/23/2014 None Full Exam - General 1994 Neurologic gait Overall: no ataxia, no unsteadiness 12/23/2014 None Full Exam - General 1994 Psychiatric orientation/consciousness Overall: oriented to person, place and time 12/23/2014 None Full Exam - General 1994 Psychiatric mood and affect Overall: normal mood and affect 12/23/2014 None Full Exam - General 1994 Constitutional general appearance Overall: well developed 10/22/2014 None Full Exam - General 1994 Constitutional general appearance Overall: in no acute distress 10/22/2014 None Full Exam - General 1994 Constitutional general appearance Overall: well nourished 10/22/2014 None Full Exam - General 1994 Eyes pupils and irises Overall: pupils equal, round, reactive to light and accomodation 10/22/2014 None Full Exam - General 1994 Ears/Nose/Throat otoscopic exam Overall: external auditory canals clear 10/22/2014 None Full Exam - General 1994 Ears/Nose/Throat otoscopic exam Overall: tympanic membranes clear 10/22/2014 None Full Exam - General 1994 Ears/Nose/Throat oral cavity/pharynx/larynx Overall: oral mucosa clear 10/22/2014 None Full Exam - General 1994 Ears/Nose/Throat oral cavity/pharynx/larynx Overall: oropharyngeal mucosa clear 10/22/2014 None Full Exam - General 1994 Ears/Nose/Throat oral cavity/pharynx/larynx Overall: no masses 10/22/2014 None Full Exam - General 1994 Respiratory auscultation Overall: breath sounds clear bilaterally 10/22/2014 None Full Exam - General 1994 Respiratory respiratory effort/rhythm Overall: no retractions 10/22/2014 None Full Exam - General 1994 Respiratory respiratory effort/rhythm Overall: normal rate 10/22/2014 None Full Exam - General 1994 Cardiovascular auscultation of heart Overall: regular rate 10/22/2014 None Full Exam - General 1994 Cardiovascular auscultation of heart Overall: normal heart sounds 10/22/2014 None Full Exam - General 1994 Cardiovascular auscultation of heart Overall: no murmurs 10/22/2014 None Full Exam - General 1994 Abdomen abdominal exam Overall: no tenderness 10/22/2014 None Full Exam - General 1994 Abdomen abdominal exam Overall: normal bowel sounds 10/22/2014 None Full Exam - General 1994 Abdomen abdominal exam Contour: rounded 10/22/2014 None Full Exam - General 1994 Musculoskeletal digits and nails Overall: no clubbing 10/22/2014 None Full Exam - General 1994 Musculoskeletal digits and nails Overall: digits benign 10/22/2014 None Full Exam - General 1994 Musculoskeletal spine, ribs and pelvis Overall: spine benign 10/22/2014 None Full Exam - General 1994 Musculoskeletal spine, ribs and pelvis Overall: sacroiliac joint benign 10/22/2014 None Full Exam - General 1994 Musculoskeletal spine, ribs and pelvis Overall: good posture 10/22/2014 None Full Exam - General 1994 Musculoskeletal gait and station Overall: normal gait 10/22/2014 None Full Exam - General 1994 Musculoskeletal gait and station Overall: normal station 10/22/2014 None Full Exam - General 1994 Neurologic gait Overall: no ataxia, no unsteadiness 10/22/2014 None Full Exam - General 1994 Psychiatric orientation/consciousness Overall: oriented to person, place and time 10/22/2014 None Full Exam - General 1994 Psychiatric mood and affect Overall: normal mood and affect 10/22/2014 None Full Exam - General 1994 Constitutional general appearance Overall: well developed 09/26/2014 None Full Exam - General 1994 Constitutional general appearance Overall: in no acute distress 09/26/2014 None Full Exam - General 1994 Constitutional general appearance Overall: well nourished 09/26/2014 None Full Exam - General 1994 Eyes pupils and irises Overall: pupils equal, round, reactive to light and accomodation 09/26/2014 None Full Exam - General 1994 Ears/Nose/Throat oral cavity/pharynx/larynx Overall: oral mucosa clear 09/26/2014 None Full Exam - General 1994 Ears/Nose/Throat oral cavity/pharynx/larynx Overall: no masses 09/26/2014 None Full Exam - General 1994 Respiratory respiratory effort/rhythm Overall: no retractions 09/26/2014 None Full Exam - General 1994 Respiratory respiratory effort/rhythm Overall: normal rate 09/26/2014 None Full Exam - General 1994 Cardiovascular auscultation of heart Overall: regular rate 09/26/2014 None Full Exam - General 1994 Cardiovascular auscultation of heart Overall: normal heart sounds 09/26/2014 None Full Exam - General 1994 Cardiovascular auscultation of heart Overall: no murmurs 09/26/2014 None Full Exam - General 1994 Musculoskeletal digits and nails Overall: no clubbing 09/26/2014 None Full Exam - General 1994 Musculoskeletal digits and nails Overall: digits benign 09/26/2014 None Full Exam - General 1994 Musculoskeletal spine, ribs and pelvis Overall: good posture 09/26/2014 None Full Exam - General 1994 Musculoskeletal gait and station Overall: normal gait 09/26/2014 None Full Exam - General 1994 Musculoskeletal gait and station Overall: normal station 09/26/2014 None Full Exam - General 1994 Psychiatric orientation/consciousness Overall: oriented to person, place and time 09/26/2014 None Full Exam - General 1994 Psychiatric mood and affect Overall: normal mood and affect 09/26/2014 None Full Exam - General 1994 Ears/Nose/Throat otoscopic exam Overall: tympanic membranes clear 09/26/2014 None Full Exam - General 1994 Ears/Nose/Throat otoscopic exam Overall: external auditory canals clear 09/26/2014 None Full Exam - General 1994 Respiratory auscultation Overall: breath sounds clear bilaterally 09/26/2014 None Full Exam - General 1994 Lymphatic neck nodes Overall: anterior cervical chain benign 09/26/2014 None Full Exam - General 1994 Lymphatic neck nodes Overall: posterior cervical chain benign 09/26/2014 None Full Exam - General 1994 Constitutional general appearance Overall: well developed 07/01/2014 None Full Exam - General 1994 Constitutional general appearance Overall: in no acute distress 07/01/2014 None Full Exam - General 1994 Constitutional general appearance Overall: well nourished 07/01/2014 None Full Exam - General 1994 Eyes pupils and irises Overall: pupils equal, round, reactive to light and accomodation 07/01/2014 None Full Exam - General 1994 Ears/Nose/Throat otoscopic exam Overall: external auditory canals clear 07/01/2014 None Full Exam - General 1994 Ears/Nose/Throat otoscopic exam Overall: tympanic membranes clear 07/01/2014 None Full Exam - General 1994 Ears/Nose/Throat oral cavity/pharynx/larynx Overall: oral mucosa clear 07/01/2014 None Full Exam - General 1994 Ears/Nose/Throat oral cavity/pharynx/larynx Overall: oropharyngeal mucosa clear 07/01/2014 None Full Exam - General 1994 Ears/Nose/Throat oral cavity/pharynx/larynx Overall: no masses 07/01/2014 None Full Exam - General 1994 Respiratory auscultation Overall: breath sounds clear bilaterally 07/01/2014 None Full Exam - General 1994 Respiratory respiratory effort/rhythm Overall: no retractions 07/01/2014 None Full Exam - General 1994 Respiratory respiratory effort/rhythm Overall: normal rate 07/01/2014 None Full Exam - General 1994 Cardiovascular auscultation of heart Overall: regular rate 07/01/2014 None Full Exam - General 1994 Cardiovascular auscultation of heart Overall: normal heart sounds 07/01/2014 None Full Exam - General 1994 Cardiovascular auscultation of heart Overall: no murmurs 07/01/2014 None Full Exam - General 1994 Abdomen abdominal exam Overall: no tenderness 07/01/2014 None Full Exam - General 1994 Abdomen abdominal exam Overall: normal bowel sounds 07/01/2014 None Full Exam - General 1994 Abdomen abdominal exam Contour: rounded 07/01/2014 None Full Exam - General 1994 Musculoskeletal digits and nails Overall: no clubbing 07/01/2014 None Full Exam - General 1994 Musculoskeletal digits and nails Overall: digits benign 07/01/2014 None Full Exam - General 1994 Musculoskeletal spine, ribs and pelvis Overall: spine benign 07/01/2014 None Full Exam - General 1994 Musculoskeletal spine, ribs and pelvis Overall: sacroiliac joint benign 07/01/2014 None Full Exam - General 1994 Musculoskeletal spine, ribs and pelvis Overall: good posture 07/01/2014 None Full Exam - General 1994 Musculoskeletal gait and station Overall: normal gait 07/01/2014 None Full Exam - General 1994 Musculoskeletal gait and station Overall: normal station 07/01/2014 None Full Exam - General 1994 Neurologic gait Overall: no ataxia, no unsteadiness 07/01/2014 None Full Exam - General 1994 Psychiatric orientation/consciousness Overall: oriented to person, place and time 07/01/2014 None Full Exam - General 1994 Psychiatric mood and affect Overall: normal mood and affect 07/01/2014 None Full Exam - General 1994 Constitutional general appearance Overall: well developed 06/09/2014 None Full Exam - General 1994 Constitutional general appearance Overall: in no acute distress 06/09/2014 None Full Exam - General 1994 Constitutional general appearance Overall: well nourished 06/09/2014 None Full Exam - General 1994 Eyes pupils and irises Overall: pupils equal, round, reactive to light and accomodation 06/09/2014 None Full Exam - General 1994 Ears/Nose/Throat otoscopic exam Overall: external auditory canals clear 06/09/2014 None Full Exam - General 1994 Ears/Nose/Throat otoscopic exam Overall: tympanic membranes clear 06/09/2014 None Full Exam - General 1994 Ears/Nose/Throat oral cavity/pharynx/larynx Overall: oral mucosa clear 06/09/2014 None Full Exam - General 1994 Ears/Nose/Throat oral cavity/pharynx/larynx Overall: oropharyngeal mucosa clear 06/09/2014 None Full Exam - General 1994 Ears/Nose/Throat oral cavity/pharynx/larynx Overall: no masses 06/09/2014 None Full Exam - General 1994 Respiratory auscultation Overall: breath sounds clear bilaterally 06/09/2014 None Full Exam - General 1994 Respiratory respiratory effort/rhythm Overall: no retractions 06/09/2014 None Full Exam - General 1994 Respiratory respiratory effort/rhythm Overall: normal rate 06/09/2014 None Full Exam - General 1994 Cardiovascular auscultation of heart Overall: regular rate 06/09/2014 None Full Exam - General 1994 Cardiovascular auscultation of heart Overall: normal heart sounds 06/09/2014 None Full Exam - General 1994 Cardiovascular auscultation of heart Overall: no murmurs 06/09/2014 None Full Exam - General 1994 Abdomen abdominal exam Overall: no tenderness 06/09/2014 None Full Exam - General 1994 Abdomen abdominal exam Overall: normal bowel sounds 06/09/2014 None Full Exam - General 1994 Abdomen abdominal exam Contour: rounded 06/09/2014 None Full Exam - General 1994 Musculoskeletal digits and nails Overall: no clubbing 06/09/2014 None Full Exam - General 1994 Musculoskeletal digits and nails Overall: digits benign 06/09/2014 None Full Exam - General 1994 Musculoskeletal spine, ribs and pelvis Overall: spine benign 06/09/2014 None Full Exam - General 1994 Musculoskeletal spine, ribs and pelvis Overall: sacroiliac joint benign 06/09/2014 None Full Exam - General 1994 Musculoskeletal spine, ribs and pelvis Overall: good posture 06/09/2014 None Full Exam - General 1994 Musculoskeletal gait and station Overall: normal gait 06/09/2014 None Full Exam - General 1994 Musculoskeletal gait and station Overall: normal station 06/09/2014 None Full Exam - General 1994 Neurologic gait Overall: no ataxia, no unsteadiness 06/09/2014 None Full Exam - General 1994 Psychiatric orientation/consciousness Overall: oriented to person, place and time 06/09/2014 None Full Exam - General 1994 Psychiatric mood and affect Overall: normal mood and affect 06/09/2014 None Full Exam - General 1994 Constitutional general appearance Overall: well developed 05/07/2014 None Full Exam - General 1994 Constitutional general appearance Overall: in no acute distress 05/07/2014 None Full Exam - General 1994 Constitutional general appearance Overall: well nourished 05/07/2014 None Full Exam - General 1994 Eyes pupils and irises Overall: pupils equal, round, reactive to light and accomodation 05/07/2014 None Full Exam - General 1994 Ears/Nose/Throat otoscopic exam Overall: external auditory canals clear 05/07/2014 None Full Exam - General 1994 Ears/Nose/Throat otoscopic exam Overall: tympanic membranes clear 05/07/2014 None Full Exam - General 1994 Ears/Nose/Throat oral cavity/pharynx/larynx Overall: oral mucosa clear 05/07/2014 None Full Exam - General 1994 Ears/Nose/Throat oral cavity/pharynx/larynx Overall: oropharyngeal mucosa clear 05/07/2014 None Full Exam - General 1994 Ears/Nose/Throat oral cavity/pharynx/larynx Overall: no masses 05/07/2014 None Full Exam - General 1994 Respiratory auscultation Overall: breath sounds clear bilaterally 05/07/2014 None Full Exam - General 1994 Respiratory respiratory effort/rhythm Overall: no retractions 05/07/2014 None Full Exam - General 1994 Respiratory respiratory effort/rhythm Overall: normal rate 05/07/2014 None Full Exam - General 1994 Cardiovascular auscultation of heart Overall: regular rate 05/07/2014 None Full Exam - General 1994 Cardiovascular auscultation of heart Overall: normal heart sounds 05/07/2014 None Full Exam - General 1994 Cardiovascular auscultation of heart Overall: no murmurs 05/07/2014 None Full Exam - General 1994 Abdomen abdominal exam Overall: no tenderness 05/07/2014 None Full Exam - General 1994 Abdomen abdominal exam Overall: normal bowel sounds 05/07/2014 None Full Exam - General 1994 Abdomen abdominal exam Contour: rounded 05/07/2014 None Full Exam - General 1994 Musculoskeletal digits and nails Overall: no clubbing 05/07/2014 None Full Exam - General 1994 Musculoskeletal digits and nails Overall: digits benign 05/07/2014 None Full Exam - General 1994 Musculoskeletal spine, ribs and pelvis Overall: spine benign 05/07/2014 None Full Exam - General 1994 Musculoskeletal spine, ribs and pelvis Overall: sacroiliac joint benign 05/07/2014 None Full Exam - General 1994 Musculoskeletal spine, ribs and pelvis Overall: good posture 05/07/2014 None Full Exam - General 1994 Musculoskeletal gait and station Overall: normal gait 05/07/2014 None Full Exam - General 1994 Musculoskeletal gait and station Overall: normal station 05/07/2014 None Full Exam - General 1994 Neurologic gait Overall: no ataxia, no unsteadiness 05/07/2014 None Full Exam - General 1994 Psychiatric orientation/consciousness Overall: oriented to person, place and time 05/07/2014 None Full Exam - General 1994 Psychiatric mood and affect Overall: normal mood and affect 05/07/2014 None Full Exam - General 1994 Constitutional general appearance Overall: well developed 04/21/2014 None Full Exam - General 1994 Constitutional general appearance Overall: well nourished 04/21/2014 None Full Exam - General 1994 Eyes pupils and irises Overall: pupils equal, round, reactive to light and accomodation 04/21/2014 None Full Exam - General 1994 Ears/Nose/Throat otoscopic exam Overall: external auditory canals clear 04/21/2014 None Full Exam - General 1994 Ears/Nose/Throat otoscopic exam Overall: tympanic membranes clear 04/21/2014 None Full Exam - General 1994 Ears/Nose/Throat oral cavity/pharynx/larynx Overall: oropharyngeal mucosa clear 04/21/2014 None Full Exam - General 1994 Ears/Nose/Throat oral cavity/pharynx/larynx Overall: no masses 04/21/2014 None Full Exam - General 1994 Respiratory auscultation Overall: breath sounds clear bilaterally 04/21/2014 None Full Exam - General 1994 Respiratory respiratory effort/rhythm Overall: no retractions 04/21/2014 None Full Exam - General 1994 Respiratory respiratory effort/rhythm Overall: normal rate 04/21/2014 None Full Exam - General 1994 Cardiovascular auscultation of heart Overall: regular rate 04/21/2014 None Full Exam - General 1994 Cardiovascular auscultation of heart Overall: normal heart sounds 04/21/2014 None Full Exam - General 1994 Cardiovascular auscultation of heart Overall: no murmurs 04/21/2014 None Full Exam - General 1994 Abdomen abdominal exam Overall: no tenderness 04/21/2014 None Full Exam - General 1994 Abdomen abdominal exam Overall: normal bowel sounds 04/21/2014 None Full Exam - General 1994 Abdomen abdominal exam Contour: rounded 04/21/2014 None Full Exam - General 1994 Musculoskeletal digits and nails Overall: no clubbing 04/21/2014 None Full Exam - General 1994 Musculoskeletal digits and nails Overall: digits benign 04/21/2014 None Full Exam - General 1994 Musculoskeletal spine, ribs and pelvis Overall: spine benign 04/21/2014 None Full Exam - General 1994 Musculoskeletal spine, ribs and pelvis Overall: sacroiliac joint benign 04/21/2014 None Full Exam - General 1994 Musculoskeletal spine, ribs and pelvis Overall: good posture 04/21/2014 None Full Exam - General 1994 Musculoskeletal gait and station Overall: normal gait 04/21/2014 None Full Exam - General 1994 Musculoskeletal gait and station Overall: normal station 04/21/2014 None Full Exam - General 1994 Neurologic gait Overall: no ataxia, no unsteadiness 04/21/2014 None Full Exam - General 1994 Psychiatric orientation/consciousness Overall: oriented to person, place and time 04/21/2014 None Full Exam - General 1994 Psychiatric mood and affect Overall: normal mood and affect 04/21/2014 None Full Exam - General 1994 Constitutional general appearance Hygiene/Attention to Grooming: good hygiene 04/21/2014 None Full Exam - General 1994 Constitutional general appearance Evidence of Distress: mild distress 04/21/2014 - pt unsteady with walking - Full Exam - General 1994 Ears/Nose/Throat oral cavity/pharynx/larynx Overall: oral mucosa clear 04/21/2014 but dry Full Exam - General 1994 Cardiovascular extremities Edema present: pitting 04/21/2014 None Full Exam - General 1994 Cardiovascular extremities Edema present: severity 1+ - 4+: 2+ 04/21/2014 None Full Exam - General 1994 Cardiovascular extremities Edema present: bilateral 04/21/2014 None Full Exam - General 1994 Integument inspection of skin Overall: few scattered moles, no gross abnormalities 04/21/2014 None Full Exam - General 1994 Constitutional general appearance Overall: well developed 02/14/2014 None Full Exam - General 1994 Constitutional general appearance Overall: in no acute distress 02/14/2014 None Full Exam - General 1994 Constitutional general appearance Overall: well nourished 02/14/2014 None Full Exam - General 1994 Eyes pupils and irises Overall: pupils equal, round, reactive to light and accomodation 02/14/2014 None Full Exam - General 1994 Ears/Nose/Throat otoscopic exam Overall: external auditory canals clear 02/14/2014 None Full Exam - General 1994 Ears/Nose/Throat otoscopic exam Overall: tympanic membranes clear 02/14/2014 None Full Exam - General 1994 Ears/Nose/Throat oral cavity/pharynx/larynx Overall: oral mucosa clear 02/14/2014 None Full Exam - General 1994 Ears/Nose/Throat oral cavity/pharynx/larynx Overall: oropharyngeal mucosa clear 02/14/2014 None Full Exam - General 1994 Ears/Nose/Throat oral cavity/pharynx/larynx Overall: no masses 02/14/2014 None Full Exam - General 1994 Respiratory auscultation Overall: breath sounds clear bilaterally 02/14/2014 None Full Exam - General 1994 Respiratory respiratory effort/rhythm Overall: no retractions 02/14/2014 None Full Exam - General 1994 Respiratory respiratory effort/rhythm Overall: normal rate 02/14/2014 None Full Exam - General 1994 Cardiovascular auscultation of heart Overall: regular rate 02/14/2014 None Full Exam - General 1994 Cardiovascular auscultation of heart Overall: normal heart sounds 02/14/2014 None Full Exam - General 1994 Cardiovascular auscultation of heart Overall: no murmurs 02/14/2014 None Full Exam - General 1994 Neurologic gait Overall: no ataxia, no unsteadiness 02/14/2014 None Full Exam - General 1994 Psychiatric orientation/consciousness Overall: oriented to person, place and time 02/14/2014 None Full Exam - General 1994 Psychiatric mood and affect Overall: normal mood and affect 02/14/2014 None Full Exam - General 1994 Integument inspection of skin Dermatitis: erythema 02/14/2014 anterior left lower leg/t ibia, healing bite jeff. Full Exam - Cardiology Respiratory auscultation Overall: breath sounds clear bilaterally 01/16/2014 None Full Exam - Cardiology Cardiovascular auscultation of heart Overall: regular rate 01/16/2014 None Full Exam - Cardiology Constitutional general appearance Overall: well nourished 01/16/2014 None Full Exam - Cardiology Constitutional general appearance Overall: well developed 01/16/2014 None Full Exam - Cardiology Constitutional general appearance Overall: in no acute distress 01/16/2014 None Full Exam - Cardiology Psychiatric orientation/consciousness Overall: oriented to person, place and time 01/16/2014 None Full Exam - Cardiology Psychiatric mood and affect Overall: normal mood and affect 01/16/2014 None Full Exam - Cardiology Musculoskeletal gait and station Overall: normal gait 01/16/2014 None Full Exam - Cardiology Musculoskeletal gait and station Overall: normal station 01/16/2014 - upper extremity with t enderness to palpation over the anterior head of biceps bilaterally Full Exam - General 1994 Constitutional general appearance Overall: well developed 11/14/2013 None Full Exam - General 1994 Constitutional general appearance Overall: in no acute distress 11/14/2013 None Full Exam - General 1994 Constitutional general appearance Overall: well nourished 11/14/2013 None Full Exam - General 1994 Eyes pupils and irises Overall: pupils equal, round, reactive to light and accomodation 11/14/2013 None Full Exam - General 1994 Ears/Nose/Throat otoscopic exam Overall: external auditory canals clear 11/14/2013 None Full Exam - General 1994 Ears/Nose/Throat otoscopic exam Overall: tympanic membranes clear 11/14/2013 None Full Exam - General 1994 Ears/Nose/Throat oral cavity/pharynx/larynx Overall: oral mucosa clear 11/14/2013 None Full Exam - General 1994 Ears/Nose/Throat oral cavity/pharynx/larynx Overall: oropharyngeal mucosa clear 11/14/2013 None Full Exam - General 1994 Ears/Nose/Throat oral cavity/pharynx/larynx Overall: no masses 11/14/2013 None Full Exam - General 1994 Respiratory auscultation Overall: breath sounds clear bilaterally 11/14/2013 None Full Exam - General 1994 Respiratory respiratory effort/rhythm Overall: no retractions 11/14/2013 None Full Exam - General 1994 Respiratory respiratory effort/rhythm Overall: normal rate 11/14/2013 None Full Exam - General 1994 Cardiovascular auscultation of heart Overall: regular rate 11/14/2013 None Full Exam - General 1994 Cardiovascular auscultation of heart Overall: normal heart sounds 11/14/2013 None Full Exam - General 1994 Cardiovascular auscultation of heart Overall: no murmurs 11/14/2013 None Full Exam - General 1994 Abdomen abdominal exam Overall: no tenderness 11/14/2013 None Full Exam - General 1994 Abdomen abdominal exam Overall: normal bowel sounds 11/14/2013 None Full Exam - General 1994 Abdomen abdominal exam Contour: rounded 11/14/2013 None Full Exam - General 1994 Musculoskeletal digits and nails Overall: no clubbing 11/14/2013 None Full Exam - General 1994 Musculoskeletal digits and nails Overall: digits benign 11/14/2013 None Full Exam - General 1994 Musculoskeletal spine, ribs and pelvis Overall: spine benign 11/14/2013 None Full Exam - General 1994 Musculoskeletal spine, ribs and pelvis Overall: sacroiliac joint benign 11/14/2013 None Full Exam - General 1994 Musculoskeletal spine, ribs and pelvis Overall: good posture 11/14/2013 None Full Exam - General 1994 Musculoskeletal gait and station Overall: normal gait 11/14/2013 None Full Exam - General 1994 Musculoskeletal gait and station Overall: normal station 11/14/2013 None Full Exam - General 1994 Neurologic gait Overall: no ataxia, no unsteadiness 11/14/2013 None Full Exam - General 1994 Psychiatric orientation/consciousness Overall: oriented to person, place and time 11/14/2013 None Full Exam - General 1994 Psychiatric mood and affect Overall: normal mood and affect 11/14/2013 None Full Exam - General 1994 Constitutional general appearance Overall: well developed 10/24/2013 None Full Exam - General 1994 Constitutional general appearance Overall: in no acute distress 10/24/2013 None Full Exam - General 1994 Constitutional general appearance Overall: well nourished 10/24/2013 None Full Exam - General 1994 Eyes pupils and irises Overall: pupils equal, round, reactive to light and accomodation 10/24/2013 None Full Exam - General 1994 Ears/Nose/Throat otoscopic exam Overall: external auditory canals clear 10/24/2013 None Full Exam - General 1994 Ears/Nose/Throat otoscopic exam Overall: tympanic membranes clear 10/24/2013 None Full Exam - General 1994 Ears/Nose/Throat oral cavity/pharynx/larynx Overall: oral mucosa clear 10/24/2013 None Full Exam - General 1994 Ears/Nose/Throat oral cavity/pharynx/larynx Overall: oropharyngeal mucosa clear 10/24/2013 None Full Exam - General 1994 Ears/Nose/Throat oral cavity/pharynx/larynx Overall: no masses 10/24/2013 None Full Exam - General 1994 Respiratory auscultation Overall: breath sounds clear bilaterally 10/24/2013 None Full Exam - General 1994 Respiratory respiratory effort/rhythm Overall: no retractions 10/24/2013 None Full Exam - General 1994 Respiratory respiratory effort/rhythm Overall: normal rate 10/24/2013 None Full Exam - General 1994 Cardiovascular auscultation of heart Overall: regular rate 10/24/2013 None Full Exam - General 1994 Cardiovascular auscultation of heart Overall: normal heart sounds 10/24/2013 None Full Exam - General 1994 Cardiovascular auscultation of heart Overall: no murmurs 10/24/2013 None Full Exam - General 1994 Abdomen abdominal exam Overall: no tenderness 10/24/2013 None Full Exam - General 1994 Abdomen abdominal exam Overall: normal bowel sounds 10/24/2013 None Full Exam - General 1994 Abdomen abdominal exam Contour: rounded 10/24/2013 None Full Exam - General 1994 Musculoskeletal digits and nails Overall: no clubbing 10/24/2013 None Full Exam - General 1994 Musculoskeletal digits and nails Overall: digits benign 10/24/2013 None Full Exam - General 1994 Musculoskeletal spine, ribs and pelvis Overall: spine benign 10/24/2013 None Full Exam - General 1994 Musculoskeletal spine, ribs and pelvis Overall: sacroiliac joint benign 10/24/2013 None Full Exam - General 1994 Musculoskeletal spine, ribs and pelvis Overall: good posture 10/24/2013 None Full Exam - General 1994 Musculoskeletal gait and station Overall: normal gait 10/24/2013 None Full Exam - General 1994 Musculoskeletal gait and station Overall: normal station 10/24/2013 None Full Exam - General 1994 Neurologic gait Overall: no ataxia, no unsteadiness 10/24/2013 None Full Exam - General 1994 Psychiatric orientation/consciousness Overall: oriented to person, place and time 10/24/2013 None Full Exam - General 1994 Psychiatric mood and affect Overall: normal mood and affect 10/24/2013 None Full Exam - General 1994 Constitutional general appearance Overall: well developed 06/24/2013 None Full Exam - General 1994 Cardiovascular auscultation of heart Overall: no murmurs 06/24/2013 None Full Exam - General 1994 Abdomen abdominal exam Overall: no tenderness 06/24/2013 None Full Exam - General 1994 Abdomen abdominal exam Overall: normal bowel sounds 06/24/2013 None Full Exam - General 1994 Abdomen abdominal exam Contour: rounded 06/24/2013 None Full Exam - General 1995 Musculoskeletal digits and nails Overall: no clubbing 06/24/2013 None Full Exam - General 1994 Musculoskeletal digits and nails Overall: digits benign 06/24/2013 None Full Exam - General 1994 Musculoskeletal spine, ribs and pelvis Overall: spine benign 06/24/2013 None Full Exam - General 1994 Musculoskeletal spine, ribs and pelvis Overall: sacroiliac joint benign 06/24/2013 None Full Exam - General 1994 Musculoskeletal spine, ribs and pelvis Overall: good posture 06/24/2013 None Full Exam - General 1994 Musculoskeletal gait and station Overall: normal gait 06/24/2013 None Full Exam - General 1994 Musculoskeletal gait and station Overall: normal station 06/24/2013 None Full Exam - General 1994 Neurologic gait Overall: no ataxia, no unsteadiness 06/24/2013 None Full Exam - General 1994 Psychiatric orientation/consciousness Overall: oriented to person, place and time 06/24/2013 None Full Exam - General 1994 Psychiatric mood and affect Overall: normal mood and affect 06/24/2013 None Full Exam - General 1994 Constitutional general appearance Overall: in no acute distress 06/24/2013 None Full Exam - General 1994 Constitutional general appearance Overall: well nourished 06/24/2013 None Full Exam - General 1994 Eyes pupils and irises Overall: pupils equal, round, reactive to light and accomodation 06/24/2013 None Full Exam - General 1994 Ears/Nose/Throat otoscopic exam Overall: external auditory canals clear 06/24/2013 None Full Exam - General 1994 Ears/Nose/Throat otoscopic exam Overall: tympanic membranes clear 06/24/2013 None Full Exam - General 1994 Ears/Nose/Throat oral cavity/pharynx/larynx Overall: oral mucosa clear 06/24/2013 None Full Exam - General 1995 Ears/Nose/Throat oral cavity/pharynx/larynx Overall: oropharyngeal mucosa clear 06/24/2013 None Full Exam - General 1995 Ears/Nose/Throat oral cavity/pharynx/larynx Overall: no masses 06/24/2013 None Full Exam - General 1995 Respiratory auscultation Overall: breath sounds clear bilaterally 06/24/2013 None Full Exam - General 1994 Respiratory respiratory effort/rhythm Overall: no retractions 06/24/2013 None Full Exam - General 1994 Respiratory respiratory effort/rhythm Overall: normal rate 06/24/2013 None Full Exam - General 1994 Cardiovascular auscultation of heart Overall: regular rate 06/24/2013 None Full Exam - General 1994 Cardiovascular auscultation of heart Overall: normal heart sounds 06/24/2013 None Full Exam - General 1994 Constitutional general appearance Overall: well developed 06/05/2013 None Full Exam - General 1994 Constitutional general appearance Overall: in no acute distress 06/05/2013 None Full Exam - General 1994 Constitutional general appearance Overall: well nourished 06/05/2013 None Full Exam - General 1994 Eyes pupils and irises Overall: pupils equal, round, reactive to light and accomodation 06/05/2013 None Full Exam - General 1994 Ears/Nose/Throat otoscopic exam Overall: external auditory canals clear 06/05/2013 None Full Exam - General 1994 Ears/Nose/Throat otoscopic exam Overall: tympanic membranes clear 06/05/2013 None Full Exam - General 1995 Ears/Nose/Throat oral cavity/pharynx/larynx Overall: oral mucosa clear 06/05/2013 None Full Exam - General 1994 Ears/Nose/Throat oral cavity/pharynx/larynx Overall: oropharyngeal mucosa clear 06/05/2013 None Full Exam - General 1995 Ears/Nose/Throat oral cavity/pharynx/larynx Overall: no masses 06/05/2013 None Full Exam - General 1994 Respiratory auscultation Overall: breath sounds clear bilaterally 06/05/2013 None Full Exam - General 1994 Respiratory respiratory effort/rhythm Overall: no retractions 06/05/2013 None Full Exam - General 1994 Respiratory respiratory effort/rhythm Overall: normal rate 06/05/2013 None Full Exam - General 1994 Cardiovascular auscultation of heart Overall: regular rate 06/05/2013 None Full Exam - General 1994 Cardiovascular auscultation of heart Overall: normal heart sounds 06/05/2013 None Full Exam - General 1994 Cardiovascular auscultation of heart Overall: no murmurs 06/05/2013 None Full Exam - General 1994 Abdomen abdominal exam Overall: no tenderness 06/05/2013 None Full Exam - General 1995 Abdomen abdominal exam Overall: normal bowel sounds 06/05/2013 None Full Exam - General 1994 Abdomen abdominal exam Contour: rounded 06/05/2013 None Full Exam - General 1994 Musculoskeletal digits and nails Overall: no clubbing 06/05/2013 None Full Exam - General 1994 Musculoskeletal digits and nails Overall: digits benign 06/05/2013 None Full Exam - General 1995 Musculoskeletal spine, ribs and pelvis Overall: spine benign 06/05/2013 None Full Exam - General 1994 Musculoskeletal spine, ribs and pelvis Overall: sacroiliac joint benign 06/05/2013 None Full Exam - General 1994 Musculoskeletal spine, ribs and pelvis Overall: good posture 06/05/2013 None Full Exam - General 1994 Musculoskeletal gait and station Overall: normal gait 06/05/2013 None Full Exam - General 1994 Musculoskeletal gait and station Overall: normal station 06/05/2013 None Full Exam - General 1994 Neurologic gait Overall: no ataxia, no unsteadiness 06/05/2013 None Full Exam - General 1994 Psychiatric orientation/consciousness Overall: oriented to person, place and time 06/05/2013 None Full Exam - General 1994 Psychiatric mood and affect Overall: normal mood and affect 06/05/2013 None Full Exam - General 1994 Ears/Nose/Throat oral cavity/pharynx/larynx Overall: oropharyngeal mucosa clear 04/01/2013 None Full Exam - General 1994 Ears/Nose/Throat oral cavity/pharynx/larynx Overall: no masses 04/01/2013 None Full Exam - General 1994 Respiratory auscultation Overall: breath sounds clear bilaterally 04/01/2013 None Full Exam - General 1994 Respiratory respiratory effort/rhythm Overall: no retractions 04/01/2013 None Full Exam - General 1994 Respiratory respiratory effort/rhythm Overall: normal rate 04/01/2013 None Full Exam - General 1994 Cardiovascular auscultation of heart Overall: regular rate 04/01/2013 None Full Exam - General 1994 Cardiovascular auscultation of heart Overall: normal heart sounds 04/01/2013 None Full Exam - General 1994 Cardiovascular auscultation of heart Overall: no murmurs 04/01/2013 None Full Exam - General 1994 Abdomen abdominal exam Overall: no tenderness 04/01/2013 None Full Exam - General 1995 Abdomen abdominal exam Overall: normal bowel sounds 04/01/2013 None Full Exam - General 1995 Abdomen abdominal exam Contour: rounded 04/01/2013 None Full Exam - General 1995 Musculoskeletal digits and nails Overall: no clubbing 04/01/2013 None Full Exam - General 1995 Musculoskeletal digits and nails Overall: digits benign 04/01/2013 None Full Exam - General 1995 Musculoskeletal spine, ribs and pelvis Overall: spine benign 04/01/2013 None Full Exam - General 1995 Constitutional general appearance Overall: well developed 04/01/2013 None Full Exam - General 1995 Constitutional general appearance Overall: in no acute distress 04/01/2013 None Full Exam - General 1995 Constitutional general appearance Overall: well nourished 04/01/2013 None Full Exam - General 1995 Eyes pupils and irises Overall: pupils equal, round, reactive to light and accomodation 04/01/2013 None Full Exam - General 1995 Ears/Nose/Throat otoscopic exam Overall: external auditory canals clear 04/01/2013 None Full Exam - General 1995 Ears/Nose/Throat otoscopic exam Overall: tympanic membranes clear 04/01/2013 None Full Exam - General 1995 Ears/Nose/Throat oral cavity/pharynx/larynx Overall: oral mucosa clear 04/01/2013 None Full Exam - General 1995 Musculoskeletal spine, ribs and pelvis Overall: sacroiliac joint benign 04/01/2013 None Full Exam - General 1995 Musculoskeletal spine, ribs and pelvis Overall: good posture 04/01/2013 None Full Exam - General 1995 Musculoskeletal gait and station Overall: normal gait 04/01/2013 None Full Exam - General 1994 Musculoskeletal gait and station Overall: normal station 04/01/2013 None Full Exam - General 1994 Neurologic gait Overall: no ataxia, no unsteadiness 04/01/2013 None Full Exam - General 1994 Psychiatric orientation/consciousness Overall: oriented to person, place and time 04/01/2013 None Full Exam - General 1994 Psychiatric mood and affect Overall: normal mood and affect 04/01/2013 None Full Exam - General 1994 Constitutional general appearance Overall: well developed 01/29/2013 None Full Exam - General 1994 Constitutional general appearance Overall: in no acute distress 01/29/2013 None Full Exam - General 1994 Constitutional general appearance Overall: well nourished 01/29/2013 None Full Exam - General 1994 Eyes pupils and irises Overall: pupils equal, round, reactive to light and accomodation 01/29/2013 None Full Exam - General 1995 Ears/Nose/Throat otoscopic exam Overall: external auditory canals clear 01/29/2013 None Full Exam - General 1995 Ears/Nose/Throat otoscopic exam Overall: tympanic membranes clear 01/29/2013 None Full Exam - General 1995 Ears/Nose/Throat oral cavity/pharynx/larynx Overall: oral mucosa clear 01/29/2013 None Full Exam - General 1995 Ears/Nose/Throat oral cavity/pharynx/larynx Overall: oropharyngeal mucosa clear 01/29/2013 None Full Exam - General 1995 Ears/Nose/Throat oral cavity/pharynx/larynx Overall: no masses 01/29/2013 None Full Exam - General 1994 Respiratory auscultation Overall: breath sounds clear bilaterally 01/29/2013 None Full Exam - General 1994 Respiratory respiratory effort/rhythm Overall: no retractions 01/29/2013 None Full Exam - General 1994 Respiratory respiratory effort/rhythm Overall: normal rate 01/29/2013 None Full Exam - General 1994 Cardiovascular auscultation of heart Overall: regular rate 01/29/2013 None Full Exam - General 1994 Cardiovascular auscultation of heart Overall: normal heart sounds 01/29/2013 None Full Exam - General 1994 Cardiovascular auscultation of heart Overall: no murmurs 01/29/2013 None Full Exam - General 1994 Abdomen abdominal exam Overall: no tenderness 01/29/2013 None Full Exam - General 1994 Abdomen abdominal exam Overall: normal bowel sounds 01/29/2013 None Full Exam - General 1994 Abdomen abdominal exam Contour: rounded 01/29/2013 None Full Exam - General 1994 Musculoskeletal digits and nails Overall: no clubbing 01/29/2013 None Full Exam - General 1994 Musculoskeletal digits and nails Overall: digits benign 01/29/2013 None Full Exam - General 1994 Musculoskeletal spine, ribs and pelvis Overall: spine benign 01/29/2013 None Full Exam - General 1994 Musculoskeletal spine, ribs and pelvis Overall: sacroiliac joint benign 01/29/2013 None Full Exam - General 1994 Musculoskeletal spine, ribs and pelvis Overall: good posture 01/29/2013 None Full Exam - General 1994 Musculoskeletal gait and station Overall: normal gait 01/29/2013 None Full Exam - General 1994 Musculoskeletal gait and station Overall: normal station 01/29/2013 None Full Exam - General 1994 Neurologic gait Overall: no ataxia, no unsteadiness 01/29/2013 None Full Exam - General 1994 Psychiatric orientation/consciousness Overall: oriented to person, place and time 01/29/2013 None Full Exam - General 1994 Psychiatric mood and affect Overall: normal mood and affect 01/29/2013 None Full Exam - General 1994 Constitutional general appearance Overall: well developed 12/25/2012 None Full Exam - General 1994 Constitutional general appearance Overall: in no acute distress 12/25/2012 None Full Exam - General 1994 Constitutional general appearance Overall: well nourished 12/25/2012 None Full Exam - General 1994 Eyes pupils and irises Overall: pupils equal, round, reactive to light and accomodation 12/25/2012 None Full Exam - General 1994 Ears/Nose/Throat otoscopic exam Overall: external auditory canals clear 12/25/2012 None Full Exam - General 1994 Ears/Nose/Throat otoscopic exam Overall: tympanic membranes clear 12/25/2012 None Full Exam - General 1994 Ears/Nose/Throat oral cavity/pharynx/larynx Overall: oral mucosa clear 12/25/2012 None Full Exam - General 1994 Ears/Nose/Throat oral cavity/pharynx/larynx Overall: oropharyngeal mucosa clear 12/25/2012 None Full Exam - General 1995 Ears/Nose/Throat oral cavity/pharynx/larynx Overall: no masses 12/25/2012 None Full Exam - General 1994 Respiratory auscultation Overall: breath sounds clear bilaterally 12/25/2012 None Full Exam - General 1994 Respiratory respiratory effort/rhythm Overall: no retractions 12/25/2012 None Full Exam - General 1994 Respiratory respiratory effort/rhythm Overall: normal rate 12/25/2012 None Full Exam - General 1994 Cardiovascular auscultation of heart Overall: regular rate 12/25/2012 None Full Exam - General 1994 Cardiovascular auscultation of heart Overall: normal heart sounds 12/25/2012 None Full Exam - General 1994 Cardiovascular auscultation of heart Overall: no murmurs 12/25/2012 None Full Exam - General 1994 Abdomen abdominal exam Overall: no tenderness 12/25/2012 None Full Exam - General 1994 Abdomen abdominal exam Overall: normal bowel sounds 12/25/2012 None Full Exam - General 1994 Abdomen abdominal exam Contour: rounded 12/25/2012 None Full Exam - General 1994 Musculoskeletal digits and nails Overall: no clubbing 12/25/2012 None Full Exam - General 1995 Musculoskeletal digits and nails Overall: digits benign 12/25/2012 None Full Exam - General 1994 Musculoskeletal spine, ribs and pelvis Overall: spine benign 12/25/2012 None Full Exam - General 1994 Musculoskeletal spine, ribs and pelvis Overall: sacroiliac joint benign 12/25/2012 None Full Exam - General 1994 Musculoskeletal spine, ribs and pelvis Overall: good posture 12/25/2012 None Full Exam - General 1994 Musculoskeletal gait and station Overall: normal gait 12/25/2012 None Full Exam - General 1994 Musculoskeletal gait and station Overall: normal station 12/25/2012 None Full Exam - General 1994 Neurologic gait Overall: no ataxia, no unsteadiness 12/25/2012 None Full Exam - General 1994 Psychiatric orientation/consciousness Overall: oriented to person, place and time 12/25/2012 None Full Exam - General 1994 Psychiatric mood and affect Overall: normal mood and affect 12/25/2012 None Full Exam - General 1994 Constitutional general appearance Overall: well developed 10/01/2012 None Full Exam - General 1994 Constitutional general appearance Overall: in no acute distress 10/01/2012 None Full Exam - General 1994 Constitutional general appearance Overall: well nourished 10/01/2012 None Full Exam - General 1994 Eyes pupils and irises Overall: pupils equal, round, reactive to light and accomodation 10/01/2012 None Full Exam - General 1994 Ears/Nose/Throat otoscopic exam Overall: external auditory canals clear 10/01/2012 None Full Exam - General 1994 Ears/Nose/Throat otoscopic exam Overall: tympanic membranes clear 10/01/2012 None Full Exam - General 1994 Ears/Nose/Throat oral cavity/pharynx/larynx Overall: oral mucosa clear 10/01/2012 None Full Exam - General 1994 Ears/Nose/Throat oral cavity/pharynx/larynx Overall: oropharyngeal mucosa clear 10/01/2012 None Full Exam - General 1994 Ears/Nose/Throat oral cavity/pharynx/larynx Overall: no masses 10/01/2012 None Full Exam - General 1994 Respiratory auscultation Overall: breath sounds clear bilaterally 10/01/2012 None Full Exam - General 1994 Respiratory respiratory effort/rhythm Overall: no retractions 10/01/2012 None Full Exam - General 1994 Respiratory respiratory effort/rhythm Overall: normal rate 10/01/2012 None Full Exam - General 1994 Cardiovascular auscultation of heart Overall: regular rate 10/01/2012 None Full Exam - General 1995 Cardiovascular auscultation of heart Overall: normal heart sounds 10/01/2012 None Full Exam - General 1995 Cardiovascular auscultation of heart Overall: no murmurs 10/01/2012 None Full Exam - General 1995 Abdomen abdominal exam Overall: no tenderness 10/01/2012 None Full Exam - General 1995 Abdomen abdominal exam Overall: normal bowel sounds 10/01/2012 None Full Exam - General 1995 Abdomen abdominal exam Contour: rounded 10/01/2012 None Full Exam - General 1995 Musculoskeletal digits and nails Overall: no clubbing 10/01/2012 None Full Exam - General 1995 Musculoskeletal digits and nails Overall: digits benign 10/01/2012 None Full Exam - General 1995 Musculoskeletal spine, ribs and pelvis Overall: spine benign 10/01/2012 None Full Exam - General 1995 Musculoskeletal spine, ribs and pelvis Overall: sacroiliac joint benign 10/01/2012 None Full Exam - General 1995 Musculoskeletal spine, ribs and pelvis Overall: good posture 10/01/2012 None Full Exam - General 1995 Musculoskeletal gait and station Overall: normal gait 10/01/2012 None Full Exam - General 1995 Musculoskeletal gait and station Overall: normal station 10/01/2012 None Full Exam - General 1995 Neurologic gait Overall: no ataxia, no unsteadiness 10/01/2012 None Full Exam - General 1995 Psychiatric orientation/consciousness Overall: oriented to person, place and time 10/01/2012 None Full Exam - General 1995 Psychiatric mood and affect Overall: normal mood and affect 10/01/2012 None Full Exam - General 1994 Respiratory auscultation Lower lung field: diminished 06/29/2012 None Full Exam - General 1994 Respiratory respiratory effort/rhythm Overall: no retractions 06/29/2012 None Full Exam - General 1994 Respiratory respiratory effort/rhythm Overall: normal rate 06/29/2012 None Full Exam - General 1994 Cardiovascular auscultation of heart Overall: regular rate 06/29/2012 None Full Exam - General 1994 Cardiovascular auscultation of heart Overall: normal heart sounds 06/29/2012 None Full Exam - General 1994 Cardiovascular auscultation of heart Overall: no murmurs 06/29/2012 None Full Exam - General 1995 Musculoskeletal digits and nails Overall: no clubbing 06/29/2012 None Full Exam - General 1995 Musculoskeletal digits and nails Overall: digits benign 06/29/2012 None Full Exam - General 1994 Musculoskeletal spine, ribs and pelvis Overall: good posture 06/29/2012 None Full Exam - General 1995 Musculoskeletal gait and station Overall: normal gait 06/29/2012 None Full Exam - General 1995 Musculoskeletal gait and station Overall: normal station 06/29/2012 None Full Exam - General 1995 Psychiatric orientation/consciousness Overall: oriented to person, place and time 06/29/2012 None Full Exam - General 1994 Psychiatric mood and affect Overall: normal mood and affect 06/29/2012 None Full Exam - General 1994 Respiratory auscultation Upper lung field: a normal exam 06/29/2012 None Full Exam - General 1995 Constitutional general appearance Overall: well developed 06/29/2012 None Full Exam - General 1995 Constitutional general appearance Overall: in no acute distress 06/29/2012 None Full Exam - General 1994 Constitutional general appearance Overall: well nourished 06/29/2012 None Full Exam - General 1994 Eyes pupils and irises Overall: pupils equal, round, reactive to light and accomodation 06/29/2012 None Full Exam - General 1995 Ears/Nose/Throat otoscopic exam Overall: external auditory canals clear 06/29/2012 None Full Exam - General 1995 Ears/Nose/Throat otoscopic exam Tympanic membrane: erythematous 06/29/2012 None Full Exam - General 1995 Ears/Nose/Throat otoscopic exam Tympanic membrane: bulging 06/29/2012 None Full Exam - General 1995 Ears/Nose/Throat oral cavity/pharynx/larynx Overall: oral mucosa clear 06/29/2012 None Full Exam - General 1995 Ears/Nose/Throat oral cavity/pharynx/larynx Overall: no masses 06/29/2012 None Full Exam - General 1995 Ears/Nose/Throat oral cavity/pharynx/larynx Posterior Pharynx: purulent post nasal drainage 06/29/2012 None Full Exam - General 1994 Constitutional general appearance Overall: well developed 05/28/2012 None Full Exam - General 1994 Constitutional general appearance Overall: in no acute distress 05/28/2012 None Full Exam - General 1994 Constitutional general appearance Overall: well nourished 05/28/2012 None Full Exam - General 1994 Eyes pupils and irises Overall: pupils equal, round, reactive to light and accomodation 05/28/2012 None Full Exam - General 1994 Ears/Nose/Throat otoscopic exam Overall: external auditory canals clear 05/28/2012 None Full Exam - General 1995 Ears/Nose/Throat oral cavity/pharynx/larynx Overall: oral mucosa clear 05/28/2012 None Full Exam - General 1995 Ears/Nose/Throat oral cavity/pharynx/larynx Overall: no masses 05/28/2012 None Full Exam - General 1994 Respiratory respiratory effort/rhythm Overall: no retractions 05/28/2012 None Full Exam - General 1994 Respiratory respiratory effort/rhythm Overall: normal rate 05/28/2012 None Full Exam - General 1994 Cardiovascular auscultation of heart Overall: regular rate 05/28/2012 None Full Exam - General 1994 Cardiovascular auscultation of heart Overall: normal heart sounds 05/28/2012 None Full Exam - General 1994 Cardiovascular auscultation of heart Overall: no murmurs 05/28/2012 None Full Exam - General 1994 Musculoskeletal digits and nails Overall: no clubbing 05/28/2012 None Full Exam - General 1994 Musculoskeletal digits and nails Overall: digits benign 05/28/2012 None Full Exam - General 1994 Musculoskeletal spine, ribs and pelvis Overall: good posture 05/28/2012 None Full Exam - General 1994 Musculoskeletal gait and station Overall: normal gait 05/28/2012 None Full Exam - General 1994 Musculoskeletal gait and station Overall: normal station 05/28/2012 None Full Exam - General 1994 Psychiatric orientation/consciousness Overall: oriented to person, place and time 05/28/2012 None Full Exam - General 1994 Psychiatric mood and affect Overall: normal mood and affect 05/28/2012 None Full Exam - General 1994 Ears/Nose/Throat otoscopic exam Tympanic membrane: erythematous 05/28/2012 None Full Exam - General 1994 Ears/Nose/Throat otoscopic exam Tympanic membrane: bulging 05/28/2012 None Full Exam - General 1994 Ears/Nose/Throat oral cavity/pharynx/larynx Posterior Pharynx: purulent post nasal drainage 05/28/2012 None Full Exam - General 1994 Respiratory auscultation Upper lung field: bronchial 05/28/2012 None Full Exam - General 1994 Respiratory auscultation Upper lung field: rhonchi 05/28/2012 None Full Exam - General 1994 Respiratory auscultation Lower lung field: diminished 05/28/2012 None Full Exam - General 1994 Constitutional general appearance Overall: well nourished 04/02/2012 None Full Exam - General 1994 Constitutional general appearance Overall: well developed 04/02/2012 None Full Exam - General 1994 Constitutional general appearance Overall: in no acute distress 04/02/2012 None Full Exam - General 1994 Eyes pupils and irises Overall: pupils equal, round, reactive to light and accomodation 04/02/2012 None Full Exam - General 1994 Respiratory auscultation Overall: breath sounds clear bilaterally 04/02/2012 None Full Exam - General 1994 Respiratory respiratory effort/rhythm Overall: no retractions 04/02/2012 None Full Exam - General 1994 Respiratory respiratory effort/rhythm Overall: normal rate 04/02/2012 None Full Exam - General 1994 Cardiovascular auscultation of heart Overall: regular rate 04/02/2012 None Full Exam - General 1994 Cardiovascular auscultation of heart Overall: normal heart sounds 04/02/2012 None Full Exam - General 1994 Cardiovascular auscultation of heart Overall: no murmurs 04/02/2012 None Full Exam - General 1994 Abdomen abdominal exam Overall: no tenderness 04/02/2012 None Full Exam - General 1994 Abdomen abdominal exam Overall: normal bowel sounds 04/02/2012 None Full Exam - General 1994 Abdomen abdominal exam Contour: rounded 04/02/2012 None Full Exam - General 1994 Neurologic gait Overall: no ataxia, no unsteadiness 04/02/2012 None Full Exam - General 1994 Psychiatric orientation/consciousness Overall: oriented to person, place and time 04/02/2012 None Full Exam - General 1994 Psychiatric mood and affect Overall: normal mood and affect 04/02/2012 None Full Exam - General 1994 Ears/Nose/Throat otoscopic exam Overall: tympanic membranes clear 04/02/2012 None Full Exam - General 1994 Ears/Nose/Throat otoscopic exam Overall: external auditory canals clear 04/02/2012 None Full Exam - General 1994 Ears/Nose/Throat oral cavity/pharynx/larynx Overall: oropharyngeal mucosa clear 04/02/2012 None Full Exam - General 1994 Ears/Nose/Throat oral cavity/pharynx/larynx Overall: no masses 04/02/2012 None Full Exam - General 1994 Ears/Nose/Throat oral cavity/pharynx/larynx Overall: oral mucosa clear 04/02/2012 None Full Exam - General 1994 Musculoskeletal digits and nails Overall: digits benign 04/02/2012 None Full Exam - General 1994 Musculoskeletal digits and nails Overall: no clubbing 04/02/2012 None Full Exam - General 1994 Musculoskeletal gait and station Overall: normal station 04/02/2012 None Full Exam - General 1994 Musculoskeletal gait and station Overall: normal gait 04/02/2012 None Full Exam - General 1994 Musculoskeletal spine, ribs and pelvis Overall: good posture 04/02/2012 None Full Exam - General 1994 Musculoskeletal spine, ribs and pelvis Overall: sacroiliac joint benign 04/02/2012 None Full Exam - General 1994 Musculoskeletal spine, ribs and pelvis Overall: spine benign 04/02/2012 None Full Exam - ENT Neurologic orientation Overall: oriented to person, place a nd time 01/24/2012 None Full Exam - ENT Lymphatic palpation of lymph nodes Overall: anterior cervical chain benign 01/24/2012 None Full Exam - ENT Lymphatic palpation of lymph nodes Overall: posterior cervical chain benign 01/24/2012 None Full Exam - ENT Cardiovascular auscultation of heart Overall: regular rate 01/24/2012 None Full Exam - ENT Cardiovascular auscultation of heart Overall: normal heart sounds 01/24/2012 None Full Exam - ENT Respiratory auscultation Overall: breath sounds clear bilater ally 01/24/2012 None Full Exam - ENT Face and Head palpation Overall: no sinus tenderness 01/24/2012 None Full Exam - ENT Ears/Nose/Throat otoscopic exam Overall: external auditory canals normal 01/24/2012 None Full Exam - ENT Ears/Nose/Throat otoscopic exam Left tympanic membrane: air-fluid le ingrid 01/24/2012 None Full Exam - ENT Ears/Nose/Throat otoscopic exam Right tympanic membrane: air-fluid level 01/24/2012 None Full Exam - ENT Ears/Nose/Throat oropharynx Overall: oral mucosa clear 01/24/2012 None Full Exam - ENT Constitutional general appearance Overall: well nourished 01/24/2012 None Full Exam - ENT Constitutional general appearance Overall: well developed 01/24/2012 None Full Exam - ENT Constitutional general appearance Overall: in no acute distress 01/24/2012 None Full Exam - ENT Ears/Nose/Throat nasal mucosa, septum, turbinates Drainage: purulent 01/24/2012 None Full Exam - ENT Ears/Nose/Throat nasal mucosa, septum, turbinates Left nasal cavity: erythema 01/24/2012 None Full Exam - ENT Ears/Nose/Throat nasal mucosa, septum, turbinates Right nasal cavity: erythema 01/24/2012 None Full Exam - Cardiology Constitutional general appearance Overall: well nourished 10/03/2011 None Full Exam - Cardiology Constitutional general appearance Overall: well developed 10/03/2011 None Full Exam - Cardiology Constitutional general appearance Overall: in no acute distress 10/03/2011 None Full Exam - Cardiology Eyes conjunctiva/eyelids Overall: conjunctiva clear 10/03/2011 None Full Exam - Cardiology Chest/Breast breast/chest inspection Overall: normal chest shape 10/03/2011 None Full Exam - Cardiology Respiratory respiratory effort/rhythm Overall: no retractions 10/03/2011 None Full Exam - Cardiology Respiratory respiratory effort/rhythm Overall: normal rate 10/03/2011 None Full Exam - Cardiology Respiratory auscultation Overall: breath sounds clear bilaterally 10/03/2011 None Full Exam - Cardiology Cardiovascular auscultation of heart Overall: regular rate 10/03/2011 None Full Exam - Cardiology Cardiovascular auscultation of heart Overall: normal heart sounds 10/03/2011 None Full Exam - Cardiology Cardiovascular extremities Overall: without clubbing, cyanosis, or edema 10/03/2011 None Full Exam - Cardiology Abdomen abdominal exam Overall: no tenderness 10/03/2011 None Full Exam - Cardiology Abdomen abdominal exam Overall: normal bowel sounds 10/03/2011 None Full Exam - Cardiology Extremities digits and nails Overall: no clubbing 10/03/2011 None Full Exam - Cardiology Extremities digits and nails Overall: digits benign 10/03/2011 None Full Exam - Cardiology Psychiatric orientation/consciousness Overall: oriented to person, place and time 10/03/2011 None Full Exam - General 1994 Psychiatric mood and affect Overall: normal mood and affect 05/30/2011 None Full Exam - General 1994 Psychiatric orientation/consciousness Overall: oriented to person, place and time 05/30/2011 None Full Exam - General 1994 Neurologic gait Overall: no ataxia, no unsteadiness 05/30/2011 None Full Exam - General 1994 Abdomen abdominal exam Overall: no tenderness 05/30/2011 None Full Exam - General 1994 Abdomen abdominal exam Overall: normal bowel sounds 05/30/2011 None Full Exam - General 1994 Abdomen abdominal exam Contour: rounded 05/30/2011 None Full Exam - General 1994 Cardiovascular auscultation of heart Overall: regular rate 05/30/2011 None Full Exam - General 1994 Cardiovascular auscultation of heart Overall: normal heart sounds 05/30/2011 None Full Exam - General 1994 Cardiovascular auscultation of heart Overall: no murmurs 05/30/2011 None Full Exam - General 1994 Respiratory auscultation Overall: breath sounds clear bilaterally 05/30/2011 None Full Exam - General 1994 Respiratory respiratory effort/rhythm Overall: normal rate 05/30/2011 None Full Exam - General 1994 Respiratory respiratory effort/rhythm Overall: no retractions 05/30/2011 None Full Exam - General 1994 Constitutional general appearance Overall: well nourished 05/30/2011 None Full Exam - General 1994 Constitutional general appearance Overall: well developed 05/30/2011 None Full Exam - General 1994 Constitutional general appearance Overall: in no acute distress 05/30/2011 None Full Exam - General 1994 Eyes pupils and irises Overall: pupils equal, round, reactive to light and accomodation 05/30/2011 None Exam Name System Name It em Name Status Result Effective Dates Notes Full Exam - General 1994 Constitutional general appearance Overall: well developed 10/08/2018 None Full Exam - General 1994 Constitutional general appearance Overall: in no acute distress 10/08/2018 None Full Exam - General 1994 Constitutional general appearance Overall: well nourished 10/08/2018 None Full Exam - General 1994 Eyes pupils and irises Overall: pupils equal, round, reactive to light and accomodation 10/08/2018 None Full Exam - General 1994 Ears/Nose/Throat otoscopic exam Overall: external auditory canals clear 10/08/2018 None Full Exam - General 1994 Ears/Nose/Throat otoscopic exam Overall: tympanic membranes clear 10/08/2018 None Full Exam - General 1994 Ears/Nose/Throat oral cavity/pharynx/larynx Overall: oral mucosa clear 10/08/2018 None Full Exam - General 1994 Ears/Nose/Throat oral cavity/pharynx/larynx Overall: oropharyngeal mucosa clear 10/08/2018 None Full Exam - General 1994 Ears/Nose/Throat oral cavity/pharynx/larynx Overall: no masses 10/08/2018 None Full Exam - General 1994 Respiratory auscultation Overall: breath sounds clear bilaterally 10/08/2018 None Full Exam - General 1994 Respiratory respiratory effort/rhythm Overall: no retractions 10/08/2018 None Full Exam - General 1994 Respiratory respiratory effort/rhythm Overall: normal rate 10/08/2018 None Full Exam - General 1994 Cardiovascular auscultation of heart Overall: regular rate 10/08/2018 None Full Exam - General 1994 Cardiovascular auscultation of heart Overall: normal heart sounds 10/08/2018 None Full Exam - General 1994 Cardiovascular auscultation of heart Overall: no murmurs 10/08/2018 None Full Exam - General 1994 Abdomen abdominal exam Overall: no tenderness 10/08/2018 None Full Exam - General 1994 Abdomen abdominal exam Overall: normal bowel sounds 10/08/2018 None Full Exam - General 1994 Abdomen abdominal exam Contour: rounded 10/08/2018 None Full Exam - General 1994 Musculoskeletal digits and nails Overall: no clubbing 10/08/2018 None Full Exam - General 1994 Musculoskeletal digits and nails Overall: digits benign 10/08/2018 None Full Exam - General 1994 Musculoskeletal spine, ribs and pelvis Overall: sacroiliac joint benign 10/08/2018 None Full Exam - General 1994 Musculoskeletal spine, ribs and pelvis Posture: lordosis 10/08/2018 None Full Exam - General 1994 Musculoskeletal gait and station Overall: normal gait 10/08/2018 None Full Exam - General 1994 Musculoskeletal gait and station Overall: normal station 10/08/2018 None Full Exam - General 1994 Neurologic gait Overall: no ataxia, no unsteadiness 10/08/2018 None Full Exam - General 1994 Psychiatric orientation/consciousness Overall: oriented to person, place and time 10/08/2018 None Full Exam - General 1994 Psychiatric mood and affect Overall: normal mood and affect 10/08/2018 None Full Exam - Orthopedics Constitutional general appearance Overall: well nourished 09/27/2018 None Full Exam - Orthopedics Constitutional general appearance Overall: well developed 09/27/2018 None Full Exam - Orthopedics Constitutional general appearance Overall: in no acute distress 09/27/2018 None Full Exam - Orthopedics Psychiatric orientation/consciousness Overall: oriented to person, place and time 09/27/2018 None Full Exam - Orthopedics MS: spine/ri b/pelvis insp & palp - S/R/P Sacroiliac palpation: right sacroiliac joint tenderness 09/27/2018 None Full Exam - Orthopedics Respiratory auscultation Overall: breath sounds clear bilaterally 09/27/2018 None Full Exam - Orthopedics Respiratory respiratory effort/rhythm Overall: no retractions 09/27/2018 None Full Exam - Orthopedics Respiratory respiratory effort/rhythm Overall: normal rate 09/27/2018 None Full Exam - Orthopedics Respiratory respiratory effort/rhythm Overall: normal, symmetric chest expansion 09/27/2018 None Full Exam - Orthopedics Musculoskeletal gait and station Overall: normal gait 09/27/2018 None Full Exam - Orthopedics MS: spine/ri b/pelvis insp & palp - S/R/P Hip palpation: tender at the posterior margin of the right trochanter 09/27/2018 None Full Exam - General 1994 Constitutional general appearance Overall: well developed 09/11/2018 None Full Exam - General 1994 Constitutional general appearance Overall: in no acute distress 09/11/2018 None Full Exam - General 1994 Constitutional general appearance Overall: well nourished 09/11/2018 None Full Exam - General 1994 Eyes pupils and irises Overall: pupils equal, round, reactive to light and accomodation 09/11/2018 None Full Exam - General 1994 Ears/Nose/Throat otoscopic exam Overall: external auditory canals clear 09/11/2018 None Full Exam - General 1994 Ears/Nose/Throat otoscopic exam Overall: tympanic membranes clear 09/11/2018 None Full Exam - General 1994 Ears/Nose/Throat oral cavity/pharynx/larynx Overall: no masses 09/11/2018 None Full Exam - General 1994 Respiratory auscultation Overall: breath sounds clear bilaterally 09/11/2018 None Full Exam - General 1994 Respiratory respiratory effort/rhythm Overall: no retractions 09/11/2018 None Full Exam - General 1994 Respiratory respiratory effort/rhythm Overall: normal rate 09/11/2018 None Full Exam - General 1994 Cardiovascular auscultation of heart Overall: regular rate 09/11/2018 None Full Exam - General 1994 Cardiovascular auscultation of heart Overall: normal heart sounds 09/11/2018 None Full Exam - General 1994 Cardiovascular auscultation of heart Overall: no murmurs 09/11/2018 None Full Exam - General 1994 Abdomen abdominal exam Overall: no tenderness 09/11/2018 None Full Exam - General 1994 Abdomen abdominal exam Overall: normal bowel sounds 09/11/2018 None Full Exam - General 1994 Abdomen abdominal exam Contour: rounded 09/11/2018 None Full Exam - General 1994 Musculoskeletal spine, ribs and pelvis Overall: good posture 09/11/2018 None Full Exam - General 1994 Neurologic gait Overall: no ataxia, no unsteadiness 09/11/2018 None Full Exam - General 1994 Psychiatric orientation/consciousness Overall: oriented to person, place and time 09/11/2018 None Full Exam - General 1994 Psychiatric mood and affect Overall: normal mood and affect 09/11/2018 None Full Exam - General 1994 Cardiovascular extremities Edema present: pitting 09/11/2018 None Full Exam - General 1994 Cardiovascular extremities Edema present: severity 1+ - 4+: 2+ 09/11/2018 None Full Exam - General 1994 Constitutional general appearance Overall: well developed 06/04/2018 None Full Exam - General 1994 Constitutional general appearance Overall: in no acute distress 06/04/2018 None Full Exam - General 1994 Constitutional general appearance Overall: well nourished 06/04/2018 None Full Exam - General 1994 Eyes pupils and irises Overall: pupils equal, round, reactive to light and accomodation 06/04/2018 None Full Exam - General 1994 Ears/Nose/Throat otoscopic exam Overall: external auditory canals clear 06/04/2018 None Full Exam - General 1994 Ears/Nose/Throat otoscopic exam Overall: tympanic membranes clear 06/04/2018 None Full Exam - General 1994 Ears/Nose/Throat oral cavity/pharynx/larynx Overall: no masses 06/04/2018 None Full Exam - General 1994 Ears/Nose/Throat oral cavity/pharynx/larynx Oral mucosa: erythroplakia 06/04/2018 None Full Exam - General 1994 Ears/Nose/Throat oral cavity/pharynx/larynx Oral mucosa: thrush 06/04/2018 None Full Exam - General 1994 Respiratory respiratory effort/rhythm Overall: no retractions 06/04/2018 None Full Exam - General 1994 Respiratory respiratory effort/rhythm Overall: normal rate 06/04/2018 None Full Exam - General 1994 Cardiovascular auscultation of heart Overall: regular rate 06/04/2018 None Full Exam - General 1994 Cardiovascular auscultation of heart Overall: normal heart sounds 06/04/2018 None Full Exam - General 1994 Cardiovascular auscultation of heart Overall: no murmurs 06/04/2018 None Full Exam - General 1994 Abdomen abdominal exam Overall: no tenderness 06/04/2018 None Full Exam - General 1994 Abdomen abdominal exam Overall: normal bowel sounds 06/04/2018 None Full Exam - General 1994 Abdomen abdominal exam Contour: rounded 06/04/2018 None Full Exam - General 1994 Musculoskeletal spine, ribs and pelvis Overall: good posture 06/04/2018 None Full Exam - General 1994 Musculoskeletal spine, ribs and pelvis Palpation: tender at greater trochanter 06/04/2018 None Full Exam - General 1994 Neurologic gait Overall: no ataxia, no unsteadiness 06/04/2018 None Full Exam - General 1994 Psychiatric orientation/consciousness Overall: oriented to person, place and time 06/04/2018 None Full Exam - General 1994 Psychiatric mood and affect Overall: normal mood and affect 06/04/2018 None Full Exam - General 1994 Respiratory auscultation Upper lung field: Breath sounds clear 06/04/2018 None Full Exam - General 1994 Respiratory auscultation Lower lung field: crackles 06/04/2018 None Full Exam - General 1994 Constitutional general appearance Overall: well developed 03/27/2018 None Full Exam - General 1994 Constitutional general appearance Overall: in no acute distress 03/27/2018 None Full Exam - General 1994 Constitutional general appearance Overall: well nourished 03/27/2018 None Full Exam - General 1994 Eyes pupils and irises Overall: pupils equal, round, reactive to light and accomodation 03/27/2018 None Full Exam - General 1994 Ears/Nose/Throat otoscopic exam Overall: external auditory canals clear 03/27/2018 None Full Exam - General 1994 Ears/Nose/Throat otoscopic exam Overall: tympanic membranes clear 03/27/2018 None Full Exam - General 1994 Ears/Nose/Throat oral cavity/pharynx/larynx Overall: no masses 03/27/2018 None Full Exam - General 1994 Respiratory auscultation Overall: breath sounds clear bilaterally 03/27/2018 None Full Exam - General 1994 Respiratory respiratory effort/rhythm Overall: no retractions 03/27/2018 None Full Exam - General 1994 Respiratory respiratory effort/rhythm Overall: normal rate 03/27/2018 None Full Exam - General 1994 Cardiovascular auscultation of heart Overall: regular rate 03/27/2018 None Full Exam - General 1994 Cardiovascular auscultation of heart Overall: normal heart sounds 03/27/2018 None Full Exam - General 1994 Cardiovascular auscultation of heart Overall: no murmurs 03/27/2018 None Full Exam - General 1994 Abdomen abdominal exam Overall: no tenderness 03/27/2018 None Full Exam - General 1994 Abdomen abdominal exam Overall: normal bowel sounds 03/27/2018 None Full Exam - General 1994 Abdomen abdominal exam Contour: rounded 03/27/2018 None Full Exam - General 1994 Musculoskeletal spine, ribs and pelvis Overall: good posture 03/27/2018 None Full Exam - General 1994 Neurologic gait Overall: no ataxia, no unsteadiness 03/27/2018 None Full Exam - General 1994 Psychiatric orientation/consciousness Overall: oriented to person, place and time 03/27/2018 None Full Exam - General 1994 Psychiatric mood and affect Overall: normal mood and affect 03/27/2018 None Full Exam - General 1994 Integument inspection of skin Overall: few scattered moles, no gross abnormalities 03/27/2018 None Full Exam - General 1994 Constitutional general appearance Overall: well developed 03/19/2018 None Full Exam - General 1994 Constitutional general appearance Overall: in no acute distress 03/19/2018 None Full Exam - General 1994 Constitutional general appearance Overall: well nourished 03/19/2018 None Full Exam - General 1994 Eyes pupils and irises Overall: pupils equal, round, reactive to light and accomodation 03/19/2018 None Full Exam - General 1994 Ears/Nose/Throat otoscopic exam Overall: external auditory canals clear 03/19/2018 None Full Exam - General 1994 Ears/Nose/Throat otoscopic exam Overall: tympanic membranes clear 03/19/2018 None Full Exam - General 1994 Ears/Nose/Throat oral cavity/pharynx/larynx Overall: no masses 03/19/2018 None Full Exam - General 1994 Respiratory auscultation Overall: breath sounds clear bilaterally 03/19/2018 None Full Exam - General 1994 Respiratory respiratory effort/rhythm Overall: no retractions 03/19/2018 None Full Exam - General 1994 Respiratory respiratory effort/rhythm Overall: normal rate 03/19/2018 None Full Exam - General 1994 Cardiovascular auscultation of heart Overall: regular rate 03/19/2018 None Full Exam - General 1994 Cardiovascular auscultation of heart Overall: normal heart sounds 03/19/2018 None Full Exam - General 1994 Cardiovascular auscultation of heart Overall: no murmurs 03/19/2018 None Full Exam - General 1994 Abdomen abdominal exam Overall: no tenderness 03/19/2018 None Full Exam - General 1994 Abdomen abdominal exam Overall: normal bowel sounds 03/19/2018 None Full Exam - General 1994 Abdomen abdominal exam Contour: rounded 03/19/2018 None Full Exam - General 1994 Musculoskeletal spine, ribs and pelvis Overall: good posture 03/19/2018 None Full Exam - General 1994 Neurologic gait Overall: no ataxia, no unsteadiness 03/19/2018 None Full Exam - General 1994 Psychiatric orientation/consciousness Overall: oriented to person, place and time 03/19/2018 None Full Exam - General 1994 Psychiatric mood and affect Overall: normal mood and affect 03/19/2018 None Full Exam - General 1994 Ears/Nose/Throat oral cavity/pharynx/larynx Oral mucosa: erythroplakia 03/19/2018 None Full Exam - General 1994 Ears/Nose/Throat oral cavity/pharynx/larynx Oral mucosa: thrush 03/19/2018 None Full Exam - General 1994 Musculoskeletal spine, ribs and pelvis Palpation: tender at greater trochanter 03/19/2018 None Full Exam - General 1994 Constitutional general appearance Overall: well developed 01/30/2018 None Full Exam - General 1994 Constitutional general appearance Overall: in no acute distress 01/30/2018 None Full Exam - General 1994 Constitutional general appearance Overall: well nourished 01/30/2018 None Full Exam - General 1994 Eyes pupils and irises Overall: pupils equal, round, reactive to light and accomodation 01/30/2018 None Full Exam - General 1994 Ears/Nose/Throat otoscopic exam Overall: external auditory canals clear 01/30/2018 None Full Exam - General 1994 Ears/Nose/Throat otoscopic exam Overall: tympanic membranes clear 01/30/2018 None Full Exam - General 1994 Ears/Nose/Throat oral cavity/pharynx/larynx Overall: oral mucosa clear 01/30/2018 None Full Exam - General 1994 Ears/Nose/Throat oral cavity/pharynx/larynx Overall: oropharyngeal mucosa clear 01/30/2018 None Full Exam - General 1994 Ears/Nose/Throat oral cavity/pharynx/larynx Overall: no masses 01/30/2018 None Full Exam - General 1994 Respiratory auscultation Overall: breath sounds clear bilaterally 01/30/2018 None Full Exam - General 1994 Respiratory respiratory effort/rhythm Overall: no retractions 01/30/2018 None Full Exam - General 1994 Respiratory respiratory effort/rhythm Overall: normal rate 01/30/2018 None Full Exam - General 1994 Cardiovascular auscultation of heart Overall: regular rate 01/30/2018 None Full Exam - General 1994 Cardiovascular auscultation of heart Overall: normal heart sounds 01/30/2018 None Full Exam - General 1994 Cardiovascular auscultation of heart Overall: no murmurs 01/30/2018 None Full Exam - General 1994 Abdomen abdominal exam Overall: no tenderness 01/30/2018 None Full Exam - General 1994 Abdomen abdominal exam Overall: normal bowel sounds 01/30/2018 None Full Exam - General 1994 Abdomen abdominal exam Contour: rounded 01/30/2018 None Full Exam - General 1994 Musculoskeletal digits and nails Overall: no clubbing 01/30/2018 None Full Exam - General 1994 Musculoskeletal digits and nails Overall: digits benign 01/30/2018 None Full Exam - General 1994 Musculoskeletal spine, ribs and pelvis Overall: sacroiliac joint benign 01/30/2018 None Full Exam - General 1994 Musculoskeletal spine, ribs and pelvis Posture: lordosis 01/30/2018 None Full Exam - General 1994 Musculoskeletal gait and station Overall: normal gait 01/30/2018 None Full Exam - General 1994 Musculoskeletal gait and station Overall: normal station 01/30/2018 None Full Exam - General 1994 Neurologic gait Overall: no ataxia, no unsteadiness 01/30/2018 None Full Exam - General 1994 Psychiatric orientation/consciousness Overall: oriented to person, place and time 01/30/2018 None Full Exam - General 1994 Psychiatric mood and affect Overall: normal mood and affect 01/30/2018 None Full Exam - General 1994 Constitutional general appearance Overall: well developed 12/26/2017 None Full Exam - General 1994 Constitutional general appearance Overall: in no acute distress 12/26/2017 None Full Exam - General 1994 Constitutional general appearance Overall: well nourished 12/26/2017 None Full Exam - General 1994 Eyes pupils and irises Overall: pupils equal, round, reactive to light and accomodation 12/26/2017 None Full Exam - General 1994 Ears/Nose/Throat otoscopic exam Overall: external auditory canals clear 12/26/2017 None Full Exam - General 1994 Ears/Nose/Throat otoscopic exam Overall: tympanic membranes clear 12/26/2017 None Full Exam - General 1994 Ears/Nose/Throat oral cavity/pharynx/larynx Overall: oral mucosa clear 12/26/2017 None Full Exam - General 1994 Ears/Nose/Throat oral cavity/pharynx/larynx Overall: oropharyngeal mucosa clear 12/26/2017 None Full Exam - General 1994 Ears/Nose/Throat oral cavity/pharynx/larynx Overall: no masses 12/26/2017 None Full Exam - General 1994 Respiratory auscultation Overall: breath sounds clear bilaterally 12/26/2017 None Full Exam - General 1994 Respiratory respiratory effort/rhythm Overall: no retractions 12/26/2017 None Full Exam - General 1994 Respiratory respiratory effort/rhythm Overall: normal rate 12/26/2017 None Full Exam - General 1994 Cardiovascular auscultation of heart Overall: regular rate 12/26/2017 None Full Exam - General 1994 Cardiovascular auscultation of heart Overall: normal heart sounds 12/26/2017 None Full Exam - General 1994 Cardiovascular auscultation of heart Overall: no murmurs 12/26/2017 None Full Exam - General 1994 Abdomen abdominal exam Overall: no tenderness 12/26/2017 None Full Exam - General 1994 Abdomen abdominal exam Overall: normal bowel sounds 12/26/2017 None Full Exam - General 1994 Abdomen abdominal exam Contour: rounded 12/26/2017 None Full Exam - General 1994 Musculoskeletal digits and nails Overall: no clubbing 12/26/2017 None Full Exam - General 1994 Musculoskeletal digits and nails Overall: digits benign 12/26/2017 None Full Exam - General 1994 Musculoskeletal spine, ribs and pelvis Overall: sacroiliac joint benign 12/26/2017 None Full Exam - General 1994 Musculoskeletal spine, ribs and pelvis Posture: lordosis 12/26/2017 None Full Exam - General 1994 Musculoskeletal gait and station Overall: normal gait 12/26/2017 None Full Exam - General 1994 Musculoskeletal gait and station Overall: normal station 12/26/2017 None Full Exam - General 1994 Neurologic gait Overall: no ataxia, no unsteadiness 12/26/2017 None Full Exam - General 1994 Psychiatric orientation/consciousness Overall: oriented to person, place and time 12/26/2017 None Full Exam - General 1994 Psychiatric mood and affect Overall: normal mood and affect 12/26/2017 None Full Exam - General 1994 Constitutional general appearance Overall: well developed 11/21/2017 None Full Exam - General 1994 Constitutional general appearance Overall: in no acute distress 11/21/2017 None Full Exam - General 1994 Constitutional general appearance Overall: well nourished 11/21/2017 None Full Exam - General 1994 Eyes conjunctiva/eyelids Overall: conjunctiva clear 11/21/2017 None Full Exam - General 1994 Eyes conjunctiva/eyelids Overall: cornea clear 11/21/2017 None Full Exam - General 1994 Eyes conjunctiva/eyelids Overall: eyelids normal 11/21/2017 None Full Exam - General 1994 Eyes pupils and irises Overall: pupils equal, round, reactive to light and accomodation 11/21/2017 None Full Exam - General 1994 Ears/Nose/Throat otoscopic exam Overall: external auditory canals clear 11/21/2017 None Full Exam - General 1994 Ears/Nose/Throat otoscopic exam Overall: tympanic membranes clear 11/21/2017 None Full Exam - General 1994 Ears/Nose/Throat lips/teeth/gingiva Overall: benign lips 11/21/2017 None Full Exam - General 1994 Ears/Nose/Throat oral cavity/pharynx/larynx Overall: oral mucosa clear 11/21/2017 None Full Exam - General 1994 Ears/Nose/Throat oral cavity/pharynx/larynx Overall: oropharyngeal mucosa clear 11/21/2017 None Full Exam - General 1994 Respiratory respiratory effort/rhythm Overall: no retractions 11/21/2017 None Full Exam - General 1994 Respiratory respiratory effort/rhythm Overall: normal rate 11/21/2017 None Full Exam - General 1994 Respiratory auscultation Overall: breath sounds clear bilaterally 11/21/2017 None Full Exam - General 1994 Cardiovascular auscultation of heart Overall: regular rate 11/21/2017 None Full Exam - General 1994 Cardiovascular auscultation of heart Overall: normal heart sounds 11/21/2017 None Full Exam - General 1994 Abdomen abdominal exam Overall: normal bowel sounds 11/21/2017 None Full Exam - General 1994 Abdomen abdominal exam Overall: no tenderness 11/21/2017 None Full Exam - General 1994 Musculoskeletal head and neck Overall: head atraumatic 11/21/2017 None Full Exam - General 1994 Musculoskeletal gait and station Overall: normal station 11/21/2017 None Full Exam - General 1994 Musculoskeletal gait and station Overall: normal gait 11/21/2017 None Full Exam - General 1994 Neurologic cranial nerves Overall: crainial nerves 2 - 12 grossly intact 11/21/2017 None Full Exam - General 1994 Psychiatric orientation/consciousness Overall: oriented to person, place and time 11/21/2017 None Full Exam - General 1994 Psychiatric mood and affect Overall: normal mood and affect 11/21/2017 None Full Exam - General 1994 Psychiatric appearance Overall: well-groomed, good eye contact 11/21/2017 None Full Exam - General 1994 Constitutional general appearance Overall: well developed 10/19/2017 None Full Exam - General 1994 Constitutional general appearance Overall: in no acute distress 10/19/2017 None Full Exam - General 1994 Constitutional general appearance Overall: well nourished 10/19/2017 None Full Exam - General 1994 Eyes pupils and irises Overall: pupils equal, round, reactive to light and accomodation 10/19/2017 None Full Exam - General 1994 Ears/Nose/Throat otoscopic exam Overall: external auditory canals clear 10/19/2017 None Full Exam - General 1994 Ears/Nose/Throat otoscopic exam Overall: tympanic membranes clear 10/19/2017 None Full Exam - General 1994 Ears/Nose/Throat oral cavity/pharynx/larynx Overall: oral mucosa clear 10/19/2017 None Full Exam - General 1994 Ears/Nose/Throat oral cavity/pharynx/larynx Overall: oropharyngeal mucosa clear 10/19/2017 None Full Exam - General 1994 Ears/Nose/Throat oral cavity/pharynx/larynx Overall: no masses 10/19/2017 None Full Exam - General 1994 Respiratory auscultation Overall: breath sounds clear bilaterally 10/19/2017 None Full Exam - General 1994 Respiratory respiratory effort/rhythm Overall: no retractions 10/19/2017 None Full Exam - General 1994 Respiratory respiratory effort/rhythm Overall: normal rate 10/19/2017 None Full Exam - General 1994 Cardiovascular auscultation of heart Overall: regular rate 10/19/2017 None Full Exam - General 1994 Cardiovascular auscultation of heart Overall: normal heart sounds 10/19/2017 None Full Exam - General 1994 Cardiovascular auscultation of heart Overall: no murmurs 10/19/2017 None Full Exam - General 1994 Abdomen abdominal exam Overall: no tenderness 10/19/2017 None Full Exam - General 1994 Abdomen abdominal exam Overall: normal bowel sounds 10/19/2017 None Full Exam - General 1994 Abdomen abdominal exam Contour: rounded 10/19/2017 None Full Exam - General 1994 Musculoskeletal digits and nails Overall: no clubbing 10/19/2017 None Full Exam - General 1994 Musculoskeletal digits and nails Overall: digits benign 10/19/2017 None Full Exam - General 1994 Musculoskeletal spine, ribs and pelvis Overall: spine benign 10/19/2017 None Full Exam - General 1994 Musculoskeletal spine, ribs and pelvis Overall: sacroiliac joint benign 10/19/2017 None Full Exam - General 1994 Musculoskeletal spine, ribs and pelvis Overall: good posture 10/19/2017 None Full Exam - General 1994 Musculoskeletal gait and station Overall: normal gait 10/19/2017 None Full Exam - General 1994 Musculoskeletal gait and station Overall: normal station 10/19/2017 None Full Exam - General 1994 Neurologic gait Overall: no ataxia, no unsteadiness 10/19/2017 None Full Exam - General 1994 Psychiatric orientation/consciousness Overall: oriented to person, place and time 10/19/2017 None Full Exam - General 1994 Psychiatric mood and affect Overall: normal mood and affect 10/19/2017 None Full Exam - General 1994 Constitutional general appearance Overall: well developed 09/18/2017 None Full Exam - General 1994 Constitutional general appearance Overall: in no acute distress 09/18/2017 None Full Exam - General 1994 Constitutional general appearance Overall: well nourished 09/18/2017 None Full Exam - General 1994 Eyes pupils and irises Overall: pupils equal, round, reactive to light and accomodation 09/18/2017 None Full Exam - General 1994 Ears/Nose/Throat otoscopic exam Overall: external auditory canals clear 09/18/2017 None Full Exam - General 1994 Ears/Nose/Throat otoscopic exam Overall: tympanic membranes clear 09/18/2017 None Full Exam - General 1994 Ears/Nose/Throat oral cavity/pharynx/larynx Overall: oral mucosa clear 09/18/2017 None Full Exam - General 1994 Ears/Nose/Throat oral cavity/pharynx/larynx Overall: oropharyngeal mucosa clear 09/18/2017 None Full Exam - General 1994 Ears/Nose/Throat oral cavity/pharynx/larynx Overall: no masses 09/18/2017 None Full Exam - General 1994 Respiratory auscultation Overall: breath sounds clear bilaterally 09/18/2017 None Full Exam - General 1994 Respiratory respiratory effort/rhythm Overall: no retractions 09/18/2017 None Full Exam - General 1994 Respiratory respiratory effort/rhythm Overall: normal rate 09/18/2017 None Full Exam - General 1994 Cardiovascular auscultation of heart Overall: regular rate 09/18/2017 None Full Exam - General 1994 Cardiovascular auscultation of heart Overall: normal heart sounds 09/18/2017 None Full Exam - General 1994 Cardiovascular auscultation of heart Overall: no murmurs 09/18/2017 None Full Exam - General 1994 Abdomen abdominal exam Overall: no tenderness 09/18/2017 None Full Exam - General 1994 Abdomen abdominal exam Overall: normal bowel sounds 09/18/2017 None Full Exam - General 1994 Abdomen abdominal exam Contour: rounded 09/18/2017 None Full Exam - General 1994 Musculoskeletal digits and nails Overall: no clubbing 09/18/2017 None Full Exam - General 1994 Musculoskeletal digits and nails Overall: digits benign 09/18/2017 None Full Exam - General 1994 Musculoskeletal spine, ribs and pelvis Overall: spine benign 09/18/2017 None Full Exam - General 1994 Musculoskeletal spine, ribs and pelvis Overall: sacroiliac joint benign 09/18/2017 None Full Exam - General 1994 Musculoskeletal spine, ribs and pelvis Overall: good posture 09/18/2017 None Full Exam - General 1994 Musculoskeletal gait and station Overall: normal gait 09/18/2017 None Full Exam - General 1994 Musculoskeletal gait and station Overall: normal station 09/18/2017 None Full Exam - General 1994 Neurologic gait Overall: no ataxia, no unsteadiness 09/18/2017 None Full Exam - General 1994 Psychiatric orientation/consciousness Overall: oriented to person, place and time 09/18/2017 None Full Exam - General 1994 Psychiatric mood and affect Overall: normal mood and affect 09/18/2017 None Full Exam - General 1994 Constitutional general appearance Overall: well developed 07/21/2017 None Full Exam - General 1994 Constitutional general appearance Overall: in no acute distress 07/21/2017 None Full Exam - General 1994 Constitutional general appearance Overall: well nourished 07/21/2017 None Full Exam - General 1994 Eyes pupils and irises Overall: pupils equal, round, reactive to light and accomodation 07/21/2017 None Full Exam - General 1994 Ears/Nose/Throat otoscopic exam Overall: external auditory canals clear 07/21/2017 None Full Exam - General 1994 Ears/Nose/Throat otoscopic exam Overall: tympanic membranes clear 07/21/2017 None Full Exam - General 1994 Ears/Nose/Throat oral cavity/pharynx/larynx Overall: oral mucosa clear 07/21/2017 None Full Exam - General 1994 Ears/Nose/Throat oral cavity/pharynx/larynx Overall: oropharyngeal mucosa clear 07/21/2017 None Full Exam - General 1994 Ears/Nose/Throat oral cavity/pharynx/larynx Overall: no masses 07/21/2017 None Full Exam - General 1994 Respiratory auscultation Overall: breath sounds clear bilaterally 07/21/2017 None Full Exam - General 1994 Respiratory respiratory effort/rhythm Overall: no retractions 07/21/2017 None Full Exam - General 1994 Respiratory respiratory effort/rhythm Overall: normal rate 07/21/2017 None Full Exam - General 1994 Cardiovascular auscultation of heart Overall: regular rate 07/21/2017 None Full Exam - General 1994 Cardiovascular auscultation of heart Overall: normal heart sounds 07/21/2017 None Full Exam - General 1994 Cardiovascular auscultation of heart Overall: no murmurs 07/21/2017 None Full Exam - General 1994 Abdomen abdominal exam Overall: no tenderness 07/21/2017 None Full Exam - General 1994 Abdomen abdominal exam Overall: normal bowel sounds 07/21/2017 None Full Exam - General 1994 Abdomen abdominal exam Contour: rounded 07/21/2017 None Full Exam - General 1994 Musculoskeletal digits and nails Overall: no clubbing 07/21/2017 None Full Exam - General 1994 Musculoskeletal digits and nails Overall: digits benign 07/21/2017 None Full Exam - General 1994 Musculoskeletal spine, ribs and pelvis Overall: spine benign 07/21/2017 None Full Exam - General 1994 Musculoskeletal spine, ribs and pelvis Overall: sacroiliac joint benign 07/21/2017 None Full Exam - General 1994 Musculoskeletal spine, ribs and pelvis Overall: good posture 07/21/2017 None Full Exam - General 1994 Musculoskeletal gait and station Overall: normal gait 07/21/2017 None Full Exam - General 1994 Musculoskeletal gait and station Overall: normal station 07/21/2017 None Full Exam - General 1994 Neurologic gait Overall: no ataxia, no unsteadiness 07/21/2017 None Full Exam - General 1994 Psychiatric orientation/consciousness Overall: oriented to person, place and time 07/21/2017 None Full Exam - General 1994 Psychiatric mood and affect Overall: normal mood and affect 07/21/2017 None Full Exam - General 1994 Constitutional general appearance Overall: well developed 05/04/2017 None Full Exam - General 1994 Constitutional general appearance Overall: in no acute distress 05/04/2017 None Full Exam - General 1994 Constitutional general appearance Overall: well nourished 05/04/2017 None Full Exam - General 1994 Eyes pupils and irises Overall: pupils equal, round, reactive to light and accomodation 05/04/2017 None Full Exam - General 1994 Ears/Nose/Throat otoscopic exam Overall: external auditory canals clear 05/04/2017 None Full Exam - General 1994 Ears/Nose/Throat otoscopic exam Overall: tympanic membranes clear 05/04/2017 None Full Exam - General 1994 Ears/Nose/Throat oral cavity/pharynx/larynx Overall: oral mucosa clear 05/04/2017 None Full Exam - General 1994 Ears/Nose/Throat oral cavity/pharynx/larynx Overall: oropharyngeal mucosa clear 05/04/2017 None Full Exam - General 1994 Ears/Nose/Throat oral cavity/pharynx/larynx Overall: no masses 05/04/2017 None Full Exam - General 1994 Respiratory auscultation Overall: breath sounds clear bilaterally 05/04/2017 None Full Exam - General 1994 Respiratory respiratory effort/rhythm Overall: no retractions 05/04/2017 None Full Exam - General 1994 Respiratory respiratory effort/rhythm Overall: normal rate 05/04/2017 None Full Exam - General 1994 Cardiovascular auscultation of heart Overall: regular rate 05/04/2017 None Full Exam - General 1994 Cardiovascular auscultation of heart Overall: normal heart sounds 05/04/2017 None Full Exam - General 1994 Cardiovascular auscultation of heart Overall: no murmurs 05/04/2017 None Full Exam - General 1994 Abdomen abdominal exam Overall: no tenderness 05/04/2017 None Full Exam - General 1994 Abdomen abdominal exam Overall: normal bowel sounds 05/04/2017 None Full Exam - General 1994 Abdomen abdominal exam Contour: rounded 05/04/2017 None Full Exam - General 1994 Musculoskeletal digits and nails Overall: no clubbing 05/04/2017 None Full Exam - General 1994 Musculoskeletal digits and nails Overall: digits benign 05/04/2017 None Full Exam - General 1994 Musculoskeletal spine, ribs and pelvis Overall: spine benign 05/04/2017 None Full Exam - General 1994 Musculoskeletal spine, ribs and pelvis Overall: sacroiliac joint benign 05/04/2017 None Full Exam - General 1994 Musculoskeletal spine, ribs and pelvis Overall: good posture 05/04/2017 None Full Exam - General 1994 Musculoskeletal gait and station Overall: normal gait 05/04/2017 None Full Exam - General 1994 Musculoskeletal gait and station Overall: normal station 05/04/2017 None Full Exam - General 1994 Neurologic gait Overall: no ataxia, no unsteadiness 05/04/2017 None Full Exam - General 1994 Psychiatric orientation/consciousness Overall: oriented to person, place and time 05/04/2017 None Full Exam - General 1994 Psychiatric mood and affect Overall: normal mood and affect 05/04/2017 None Full Exam - General 1994 Constitutional general appearance Overall: well developed 03/30/2017 None Full Exam - General 1994 Constitutional general appearance Overall: in no acute distress 03/30/2017 None Full Exam - General 1994 Constitutional general appearance Overall: well nourished 03/30/2017 None Full Exam - General 1994 Eyes pupils and irises Overall: pupils equal, round, reactive to light and accomodation 03/30/2017 None Full Exam - General 1994 Ears/Nose/Throat oral cavity/pharynx/larynx Overall: oral mucosa clear 03/30/2017 None Full Exam - General 1994 Ears/Nose/Throat oral cavity/pharynx/larynx Overall: oropharyngeal mucosa clear 03/30/2017 None Full Exam - General 1994 Ears/Nose/Throat oral cavity/pharynx/larynx Overall: no masses 03/30/2017 None Full Exam - General 1994 Respiratory auscultation Overall: breath sounds clear bilaterally 03/30/2017 None Full Exam - General 1994 Respiratory respiratory effort/rhythm Overall: no retractions 03/30/2017 None Full Exam - General 1994 Respiratory respiratory effort/rhythm Overall: normal rate 03/30/2017 None Full Exam - General 1994 Cardiovascular auscultation of heart Overall: regular rate 03/30/2017 None Full Exam - General 1994 Cardiovascular auscultation of heart Overall: normal heart sounds 03/30/2017 None Full Exam - General 1994 Cardiovascular auscultation of heart Overall: no murmurs 03/30/2017 None Full Exam - General 1994 Abdomen abdominal exam Contour: rounded 03/30/2017 None Full Exam - General 1994 Psychiatric orientation/consciousness Overall: oriented to person, place and time 03/30/2017 None Full Exam - General 1994 Psychiatric mood and affect Overall: normal mood and affect 03/30/2017 None Full Exam - General 1994 Constitutional general appearance Overall: well developed 03/02/2017 None Full Exam - General 1994 Constitutional general appearance Overall: in no acute distress 03/02/2017 None Full Exam - General 1994 Constitutional general appearance Overall: well nourished 03/02/2017 None Full Exam - General 1994 Eyes pupils and irises Overall: pupils equal, round, reactive to light and accomodation 03/02/2017 None Full Exam - General 1994 Ears/Nose/Throat otoscopic exam Overall: external auditory canals clear 03/02/2017 None Full Exam - General 1994 Ears/Nose/Throat otoscopic exam Overall: tympanic membranes clear 03/02/2017 None Full Exam - General 1994 Ears/Nose/Throat oral cavity/pharynx/larynx Overall: oral mucosa clear 03/02/2017 None Full Exam - General 1994 Ears/Nose/Throat oral cavity/pharynx/larynx Overall: oropharyngeal mucosa clear 03/02/2017 None Full Exam - General 1994 Ears/Nose/Throat oral cavity/pharynx/larynx Overall: no masses 03/02/2017 None Full Exam - General 1994 Respiratory auscultation Overall: breath sounds clear bilaterally 03/02/2017 None Full Exam - General 1994 Respiratory respiratory effort/rhythm Overall: no retractions 03/02/2017 None Full Exam - General 1994 Respiratory respiratory effort/rhythm Overall: normal rate 03/02/2017 None Full Exam - General 1994 Cardiovascular auscultation of heart Overall: regular rate 03/02/2017 None Full Exam - General 1994 Cardiovascular auscultation of heart Overall: normal heart sounds 03/02/2017 None Full Exam - General 1994 Cardiovascular auscultation of heart Overall: no murmurs 03/02/2017 None Full Exam - General 1994 Abdomen abdominal exam Overall: no tenderness 03/02/2017 None Full Exam - General 1994 Abdomen abdominal exam Overall: normal bowel sounds 03/02/2017 None Full Exam - General 1994 Abdomen abdominal exam Contour: rounded 03/02/2017 None Full Exam - General 1994 Musculoskeletal digits and nails Overall: no clubbing 03/02/2017 None Full Exam - General 1994 Musculoskeletal digits and nails Overall: digits benign 03/02/2017 None Full Exam - General 1994 Musculoskeletal spine, ribs and pelvis Overall: sacroiliac joint benign 03/02/2017 None Full Exam - General 1994 Musculoskeletal spine, ribs and pelvis Posture: lordosis 03/02/2017 None Full Exam - General 1994 Musculoskeletal gait and station Overall: normal gait 03/02/2017 None Full Exam - General 1994 Musculoskeletal gait and station Overall: normal station 03/02/2017 None Full Exam - General 1994 Neurologic gait Overall: no ataxia, no unsteadiness 03/02/2017 None Full Exam - General 1994 Psychiatric orientation/consciousness Overall: oriented to person, place and time 03/02/2017 None Full Exam - General 1994 Psychiatric mood and affect Overall: normal mood and affect 03/02/2017 None Full Exam - General 1994 Constitutional general appearance Overall: well developed 01/31/2017 None Full Exam - General 1994 Constitutional general appearance Overall: in no acute distress 01/31/2017 None Full Exam - General 1994 Constitutional general appearance Overall: well nourished 01/31/2017 None Full Exam - General 1994 Eyes pupils and irises Overall: pupils equal, round, reactive to light and accomodation 01/31/2017 None Full Exam - General 1995 Ears/Nose/Throat otoscopic exam Overall: external auditory canals clear 01/31/2017 None Full Exam - General 1994 Ears/Nose/Throat otoscopic exam Overall: tympanic membranes clear 01/31/2017 None Full Exam - General 1994 Ears/Nose/Throat oral cavity/pharynx/larynx Overall: oral mucosa clear 01/31/2017 None Full Exam - General 1994 Ears/Nose/Throat oral cavity/pharynx/larynx Overall: oropharyngeal mucosa clear 01/31/2017 None Full Exam - General 1994 Ears/Nose/Throat oral cavity/pharynx/larynx Overall: no masses 01/31/2017 None Full Exam - General 1994 Respiratory auscultation Overall: breath sounds clear bilaterally 01/31/2017 None Full Exam - General 1994 Respiratory respiratory effort/rhythm Overall: no retractions 01/31/2017 None Full Exam - General 1994 Respiratory respiratory effort/rhythm Overall: normal rate 01/31/2017 None Full Exam - General 1994 Cardiovascular auscultation of heart Overall: regular rate 01/31/2017 None Full Exam - General 1994 Cardiovascular auscultation of heart Overall: normal heart sounds 01/31/2017 None Full Exam - General 1994 Cardiovascular auscultation of heart Overall: no murmurs 01/31/2017 None Full Exam - General 1994 Abdomen abdominal exam Overall: no tenderness 01/31/2017 None Full Exam - General 1994 Abdomen abdominal exam Overall: normal bowel sounds 01/31/2017 None Full Exam - General 1994 Abdomen abdominal exam Contour: rounded 01/31/2017 None Full Exam - General 1994 Musculoskeletal digits and nails Overall: no clubbing 01/31/2017 None Full Exam - General 1994 Musculoskeletal digits and nails Overall: digits benign 01/31/2017 None Full Exam - General 1994 Musculoskeletal spine, ribs and pelvis Overall: spine benign 01/31/2017 None Full Exam - General 1994 Musculoskeletal spine, ribs and pelvis Overall: sacroiliac joint benign 01/31/2017 None Full Exam - General 1994 Musculoskeletal spine, ribs and pelvis Overall: good posture 01/31/2017 None Full Exam - General 1994 Musculoskeletal gait and station Overall: normal gait 01/31/2017 None Full Exam - General 1994 Musculoskeletal gait and station Overall: normal station 01/31/2017 None Full Exam - General 1994 Neurologic gait Overall: no ataxia, no unsteadiness 01/31/2017 None Full Exam - General 1994 Psychiatric orientation/consciousness Overall: oriented to person, place and time 01/31/2017 None Full Exam - General 1994 Psychiatric mood and affect Overall: normal mood and affect 01/31/2017 None Full Exam - General 1994 Constitutional general appearance Overall: well developed 10/25/2016 None Full Exam - General 1994 Constitutional general appearance Overall: in no acute distress 10/25/2016 None Full Exam - General 1994 Constitutional general appearance Overall: well nourished 10/25/2016 None Full Exam - General 1994 Eyes pupils and irises Overall: pupils equal, round, reactive to light and accomodation 10/25/2016 None Full Exam - General 1994 Ears/Nose/Throat otoscopic exam Overall: external auditory canals clear 10/25/2016 None Full Exam - General 1994 Ears/Nose/Throat otoscopic exam Overall: tympanic membranes clear 10/25/2016 None Full Exam - General 1994 Ears/Nose/Throat oral cavity/pharynx/larynx Overall: oral mucosa clear 10/25/2016 None Full Exam - General 1994 Ears/Nose/Throat oral cavity/pharynx/larynx Overall: oropharyngeal mucosa clear 10/25/2016 None Full Exam - General 1994 Ears/Nose/Throat oral cavity/pharynx/larynx Overall: no masses 10/25/2016 None Full Exam - General 1994 Respiratory auscultation Overall: breath sounds clear bilaterally 10/25/2016 None Full Exam - General 1994 Respiratory respiratory effort/rhythm Overall: no retractions 10/25/2016 None Full Exam - General 1994 Respiratory respiratory effort/rhythm Overall: normal rate 10/25/2016 None Full Exam - General 1994 Cardiovascular auscultation of heart Overall: regular rate 10/25/2016 None Full Exam - General 1994 Cardiovascular auscultation of heart Overall: normal heart sounds 10/25/2016 None Full Exam - General 1994 Cardiovascular auscultation of heart Overall: no murmurs 10/25/2016 None Full Exam - General 1994 Abdomen abdominal exam Overall: no tenderness 10/25/2016 None Full Exam - General 1994 Abdomen abdominal exam Overall: normal bowel sounds 10/25/2016 None Full Exam - General 1994 Abdomen abdominal exam Contour: rounded 10/25/2016 None Full Exam - General 1994 Musculoskeletal digits and nails Overall: no clubbing 10/25/2016 None Full Exam - General 1994 Musculoskeletal digits and nails Overall: digits benign 10/25/2016 None Full Exam - General 1994 Musculoskeletal spine, ribs and pelvis Overall: sacroiliac joint benign 10/25/2016 None Full Exam - General 1994 Musculoskeletal spine, ribs and pelvis Posture: lordosis 10/25/2016 None Full Exam - General 1994 Musculoskeletal gait and station Overall: normal gait 10/25/2016 None Full Exam - General 1994 Musculoskeletal gait and station Overall: normal station 10/25/2016 None Full Exam - General 1994 Neurologic gait Overall: no ataxia, no unsteadiness 10/25/2016 None Full Exam - General 1994 Psychiatric orientation/consciousness Overall: oriented to person, place and time 10/25/2016 None Full Exam - General 1994 Psychiatric mood and affect Overall: normal mood and affect 10/25/2016 None Full Exam - General 1994 Constitutional general appearance Overall: well developed 07/27/2016 None Full Exam - General 1994 Constitutional general appearance Overall: in no acute distress 07/27/2016 None Full Exam - General 1994 Constitutional general appearance Overall: well nourished 07/27/2016 None Full Exam - General 1994 Eyes pupils and irises Overall: pupils equal, round, reactive to light and accomodation 07/27/2016 None Full Exam - General 1994 Ears/Nose/Throat otoscopic exam Overall: external auditory canals clear 07/27/2016 None Full Exam - General 1994 Ears/Nose/Throat otoscopic exam Overall: tympanic membranes clear 07/27/2016 None Full Exam - General 1994 Ears/Nose/Throat oral cavity/pharynx/larynx Overall: oral mucosa clear 07/27/2016 None Full Exam - General 1994 Ears/Nose/Throat oral cavity/pharynx/larynx Overall: oropharyngeal mucosa clear 07/27/2016 None Full Exam - General 1994 Ears/Nose/Throat oral cavity/pharynx/larynx Overall: no masses 07/27/2016 None Full Exam - General 1994 Respiratory auscultation Overall: breath sounds clear bilaterally 07/27/2016 None Full Exam - General 1994 Respiratory respiratory effort/rhythm Overall: no retractions 07/27/2016 None Full Exam - General 1994 Respiratory respiratory effort/rhythm Overall: normal rate 07/27/2016 None Full Exam - General 1994 Cardiovascular auscultation of heart Overall: regular rate 07/27/2016 None Full Exam - General 1994 Cardiovascular auscultation of heart Overall: normal heart sounds 07/27/2016 None Full Exam - General 1994 Cardiovascular auscultation of heart Overall: no murmurs 07/27/2016 None Full Exam - General 1994 Abdomen abdominal exam Overall: no tenderness 07/27/2016 None Full Exam - General 1994 Abdomen abdominal exam Overall: normal bowel sounds 07/27/2016 None Full Exam - General 1994 Abdomen abdominal exam Contour: rounded 07/27/2016 None Full Exam - General 1994 Musculoskeletal digits and nails Overall: no clubbing 07/27/2016 None Full Exam - General 1994 Musculoskeletal digits and nails Overall: digits benign 07/27/2016 None Full Exam - General 1994 Musculoskeletal spine, ribs and pelvis Overall: sacroiliac joint benign 07/27/2016 None Full Exam - General 1994 Musculoskeletal spine, ribs and pelvis Posture: lordosis 07/27/2016 None Full Exam - General 1994 Musculoskeletal gait and station Overall: normal gait 07/27/2016 None Full Exam - General 1994 Musculoskeletal gait and station Overall: normal station 07/27/2016 None Full Exam - General 1994 Neurologic gait Overall: no ataxia, no unsteadiness 07/27/2016 None Full Exam - General 1994 Psychiatric orientation/consciousness Overall: oriented to person, place and time 07/27/2016 None Full Exam - General 1994 Psychiatric mood and affect Overall: normal mood and affect 07/27/2016 None Full Exam - General 1994 Constitutional general appearance Overall: well developed 05/26/2016 None Full Exam - General 1994 Constitutional general appearance Overall: in no acute distress 05/26/2016 None Full Exam - General 1994 Constitutional general appearance Overall: well nourished 05/26/2016 None Full Exam - General 1994 Eyes pupils and irises Overall: pupils equal, round, reactive to light and accomodation 05/26/2016 None Full Exam - General 1994 Ears/Nose/Throat otoscopic exam Overall: external auditory canals clear 05/26/2016 None Full Exam - General 1994 Ears/Nose/Throat otoscopic exam Overall: tympanic membranes clear 05/26/2016 None Full Exam - General 1994 Ears/Nose/Throat oral cavity/pharynx/larynx Overall: oral mucosa clear 05/26/2016 None Full Exam - General 1994 Ears/Nose/Throat oral cavity/pharynx/larynx Overall: oropharyngeal mucosa clear 05/26/2016 None Full Exam - General 1994 Ears/Nose/Throat oral cavity/pharynx/larynx Overall: no masses 05/26/2016 None Full Exam - General 1994 Respiratory auscultation Overall: breath sounds clear bilaterally 05/26/2016 None Full Exam - General 1994 Respiratory respiratory effort/rhythm Overall: no retractions 05/26/2016 None Full Exam - General 1994 Respiratory respiratory effort/rhythm Overall: normal rate 05/26/2016 None Full Exam - General 1994 Cardiovascular auscultation of heart Overall: regular rate 05/26/2016 None Full Exam - General 1994 Cardiovascular auscultation of heart Overall: normal heart sounds 05/26/2016 None Full Exam - General 1994 Cardiovascular auscultation of heart Overall: no murmurs 05/26/2016 None Full Exam - General 1994 Abdomen abdominal exam Overall: no tenderness 05/26/2016 None Full Exam - General 1994 Abdomen abdominal exam Overall: normal bowel sounds 05/26/2016 None Full Exam - General 1994 Abdomen abdominal exam Contour: rounded 05/26/2016 None Full Exam - General 1994 Musculoskeletal digits and nails Overall: no clubbing 05/26/2016 None Full Exam - General 1994 Musculoskeletal digits and nails Overall: digits benign 05/26/2016 None Full Exam - General 1994 Musculoskeletal spine, ribs and pelvis Overall: sacroiliac joint benign 05/26/2016 None Full Exam - General 1994 Musculoskeletal spine, ribs and pelvis Posture: lordosis 05/26/2016 None Full Exam - General 1994 Musculoskeletal gait and station Overall: normal gait 05/26/2016 None Full Exam - General 1994 Musculoskeletal gait and station Overall: normal station 05/26/2016 None Full Exam - General 1994 Neurologic gait Overall: no ataxia, no unsteadiness 05/26/2016 None Full Exam - General 1994 Psychiatric orientation/consciousness Overall: oriented to person, place and time 05/26/2016 None Full Exam - General 1994 Psychiatric mood and affect Overall: normal mood and affect 05/26/2016 None Full Exam - General 1994 Constitutional general appearance Overall: well developed 05/12/2016 None Full Exam - General 1994 Constitutional general appearance Overall: in no acute distress 05/12/2016 None Full Exam - General 1994 Constitutional general appearance Overall: well nourished 05/12/2016 None Full Exam - General 1994 Eyes pupils and irises Overall: pupils equal, round, reactive to light and accomodation 05/12/2016 None Full Exam - General 1994 Ears/Nose/Throat otoscopic exam Overall: external auditory canals clear 05/12/2016 None Full Exam - General 1994 Ears/Nose/Throat otoscopic exam Overall: tympanic membranes clear 05/12/2016 None Full Exam - General 1994 Ears/Nose/Throat oral cavity/pharynx/larynx Overall: oral mucosa clear 05/12/2016 None Full Exam - General 1994 Ears/Nose/Throat oral cavity/pharynx/larynx Overall: oropharyngeal mucosa clear 05/12/2016 None Full Exam - General 1994 Ears/Nose/Throat oral cavity/pharynx/larynx Overall: no masses 05/12/2016 None Full Exam - General 1994 Respiratory auscultation Overall: breath sounds clear bilaterally 05/12/2016 None Full Exam - General 1994 Respiratory respiratory effort/rhythm Overall: no retractions 05/12/2016 None Full Exam - General 1994 Respiratory respiratory effort/rhythm Overall: normal rate 05/12/2016 None Full Exam - General 1994 Cardiovascular auscultation of heart Overall: regular rate 05/12/2016 None Full Exam - General 1994 Cardiovascular auscultation of heart Overall: normal heart sounds 05/12/2016 None Full Exam - General 1994 Cardiovascular auscultation of heart Overall: no murmurs 05/12/2016 None Full Exam - General 1994 Abdomen abdominal exam Overall: no tenderness 05/12/2016 None Full Exam - General 1994 Abdomen abdominal exam Overall: normal bowel sounds 05/12/2016 None Full Exam - General 1994 Abdomen abdominal exam Contour: rounded 05/12/2016 None Full Exam - General 1994 Musculoskeletal digits and nails Overall: no clubbing 05/12/2016 None Full Exam - General 1994 Musculoskeletal digits and nails Overall: digits benign 05/12/2016 None Full Exam - General 1994 Musculoskeletal spine, ribs and pelvis Overall: sacroiliac joint benign 05/12/2016 None Full Exam - General 1994 Musculoskeletal spine, ribs and pelvis Posture: lordosis 05/12/2016 None Full Exam - General 1994 Musculoskeletal gait and station Overall: normal gait 05/12/2016 None Full Exam - General 1994 Musculoskeletal gait and station Overall: normal station 05/12/2016 None Full Exam - General 1994 Neurologic gait Overall: no ataxia, no unsteadiness 05/12/2016 None Full Exam - General 1994 Psychiatric orientation/consciousness Overall: oriented to person, place and time 05/12/2016 None Full Exam - General 1994 Psychiatric mood and affect Overall: normal mood and affect 05/12/2016 None Full Exam - General 1994 Constitutional general appearance Overall: well developed 02/23/2016 None Full Exam - General 1994 Constitutional general appearance Overall: in no acute distress 02/23/2016 None Full Exam - General 1994 Constitutional general appearance Overall: well nourished 02/23/2016 None Full Exam - General 1994 Eyes pupils and irises Overall: pupils equal, round, reactive to light and accomodation 02/23/2016 None Full Exam - General 1994 Ears/Nose/Throat otoscopic exam Overall: external auditory canals clear 02/23/2016 None Full Exam - General 1994 Ears/Nose/Throat otoscopic exam Overall: tympanic membranes clear 02/23/2016 None Full Exam - General 1994 Ears/Nose/Throat oral cavity/pharynx/larynx Overall: oral mucosa clear 02/23/2016 None Full Exam - General 1994 Ears/Nose/Throat oral cavity/pharynx/larynx Overall: oropharyngeal mucosa clear 02/23/2016 None Full Exam - General 1994 Ears/Nose/Throat oral cavity/pharynx/larynx Overall: no masses 02/23/2016 None Full Exam - General 1994 Respiratory auscultation Overall: breath sounds clear bilaterally 02/23/2016 None Full Exam - General 1994 Respiratory respiratory effort/rhythm Overall: no retractions 02/23/2016 None Full Exam - General 1994 Respiratory respiratory effort/rhythm Overall: normal rate 02/23/2016 None Full Exam - General 1994 Cardiovascular auscultation of heart Overall: regular rate 02/23/2016 None Full Exam - General 1994 Cardiovascular auscultation of heart Overall: normal heart sounds 02/23/2016 None Full Exam - General 1994 Cardiovascular auscultation of heart Overall: no murmurs 02/23/2016 None Full Exam - General 1994 Abdomen abdominal exam Overall: no tenderness 02/23/2016 None Full Exam - General 1994 Abdomen abdominal exam Overall: normal bowel sounds 02/23/2016 None Full Exam - General 1994 Abdomen abdominal exam Contour: rounded 02/23/2016 None Full Exam - General 1994 Musculoskeletal digits and nails Overall: no clubbing 02/23/2016 None Full Exam - General 1994 Musculoskeletal digits and nails Overall: digits benign 02/23/2016 None Full Exam - General 1994 Musculoskeletal spine, ribs and pelvis Overall: sacroiliac joint benign 02/23/2016 None Full Exam - General 1994 Musculoskeletal gait and station Overall: normal gait 02/23/2016 None Full Exam - General 1994 Musculoskeletal gait and station Overall: normal station 02/23/2016 None Full Exam - General 1994 Neurologic gait Overall: no ataxia, no unsteadiness 02/23/2016 None Full Exam - General 1994 Psychiatric orientation/consciousness Overall: oriented to person, place and time 02/23/2016 None Full Exam - General 1994 Psychiatric mood and affect Overall: normal mood and affect 02/23/2016 None Full Exam - General 1994 Musculoskeletal spine, ribs and pelvis Posture: lordosis 02/23/2016 None Full Exam - General 1994 Constitutional general appearance Overall: well developed 12/10/2015 None Full Exam - General 1994 Constitutional general appearance Overall: in no acute distress 12/10/2015 None Full Exam - General 1994 Constitutional general appearance Overall: well nourished 12/10/2015 None Full Exam - General 1994 Eyes pupils and irises Overall: pupils equal, round, reactive to light and accomodation 12/10/2015 None Full Exam - General 1994 Ears/Nose/Throat otoscopic exam Overall: external auditory canals clear 12/10/2015 None Full Exam - General 1994 Ears/Nose/Throat otoscopic exam Overall: tympanic membranes clear 12/10/2015 None Full Exam - General 1994 Ears/Nose/Throat oral cavity/pharynx/larynx Overall: oral mucosa clear 12/10/2015 None Full Exam - General 1994 Ears/Nose/Throat oral cavity/pharynx/larynx Overall: oropharyngeal mucosa clear 12/10/2015 None Full Exam - General 1994 Ears/Nose/Throat oral cavity/pharynx/larynx Overall: no masses 12/10/2015 None Full Exam - General 1994 Respiratory auscultation Overall: breath sounds clear bilaterally 12/10/2015 None Full Exam - General 1994 Respiratory respiratory effort/rhythm Overall: no retractions 12/10/2015 None Full Exam - General 1994 Respiratory respiratory effort/rhythm Overall: normal rate 12/10/2015 None Full Exam - General 1994 Cardiovascular auscultation of heart Overall: regular rate 12/10/2015 None Full Exam - General 1994 Cardiovascular auscultation of heart Overall: normal heart sounds 12/10/2015 None Full Exam - General 1994 Cardiovascular auscultation of heart Overall: no murmurs 12/10/2015 None Full Exam - General 1994 Abdomen abdominal exam Overall: no tenderness 12/10/2015 None Full Exam - General 1994 Abdomen abdominal exam Overall: normal bowel sounds 12/10/2015 None Full Exam - General 1994 Abdomen abdominal exam Contour: rounded 12/10/2015 None Full Exam - General 1994 Musculoskeletal digits and nails Overall: no clubbing 12/10/2015 None Full Exam - General 1994 Musculoskeletal digits and nails Overall: digits benign 12/10/2015 None Full Exam - General 1994 Musculoskeletal spine, ribs and pelvis Overall: spine benign 12/10/2015 None Full Exam - General 1994 Musculoskeletal spine, ribs and pelvis Overall: sacroiliac joint benign 12/10/2015 None Full Exam - General 1994 Musculoskeletal spine, ribs and pelvis Overall: good posture 12/10/2015 None Full Exam - General 1994 Musculoskeletal gait and station Overall: normal gait 12/10/2015 None Full Exam - General 1994 Musculoskeletal gait and station Overall: normal station 12/10/2015 None Full Exam - General 1994 Neurologic gait Overall: no ataxia, no unsteadiness 12/10/2015 None Full Exam - General 1994 Psychiatric orientation/consciousness Overall: oriented to person, place and time 12/10/2015 None Full Exam - General 1994 Psychiatric mood and affect Overall: normal mood and affect 12/10/2015 None Full Exam - General 1994 Constitutional general appearance Overall: well developed 11/10/2015 None Full Exam - General 1994 Constitutional general appearance Overall: in no acute distress 11/10/2015 None Full Exam - General 1994 Constitutional general appearance Overall: well nourished 11/10/2015 None Full Exam - General 1994 Eyes pupils and irises Overall: pupils equal, round, reactive to light and accomodation 11/10/2015 None Full Exam - General 1994 Ears/Nose/Throat otoscopic exam Overall: external auditory canals clear 11/10/2015 None Full Exam - General 1994 Ears/Nose/Throat otoscopic exam Overall: tympanic membranes clear 11/10/2015 None Full Exam - General 1994 Ears/Nose/Throat oral cavity/pharynx/larynx Overall: oral mucosa clear 11/10/2015 None Full Exam - General 1994 Ears/Nose/Throat oral cavity/pharynx/larynx Overall: oropharyngeal mucosa clear 11/10/2015 None Full Exam - General 1994 Ears/Nose/Throat oral cavity/pharynx/larynx Overall: no masses 11/10/2015 None Full Exam - General 1994 Respiratory auscultation Overall: breath sounds clear bilaterally 11/10/2015 None Full Exam - General 1994 Respiratory respiratory effort/rhythm Overall: no retractions 11/10/2015 None Full Exam - General 1994 Respiratory respiratory effort/rhythm Overall: normal rate 11/10/2015 None Full Exam - General 1994 Cardiovascular auscultation of heart Overall: regular rate 11/10/2015 None Full Exam - General 1994 Cardiovascular auscultation of heart Overall: normal heart sounds 11/10/2015 None Full Exam - General 1994 Cardiovascular auscultation of heart Overall: no murmurs 11/10/2015 None Full Exam - General 1994 Abdomen abdominal exam Overall: no tenderness 11/10/2015 None Full Exam - General 1994 Abdomen abdominal exam Overall: normal bowel sounds 11/10/2015 None Full Exam - General 1994 Abdomen abdominal exam Contour: rounded 11/10/2015 None Full Exam - General 1994 Musculoskeletal digits and nails Overall: no clubbing 11/10/2015 None Full Exam - General 1994 Musculoskeletal digits and nails Overall: digits benign 11/10/2015 None Full Exam - General 1994 Musculoskeletal spine, ribs and pelvis Overall: spine benign 11/10/2015 None Full Exam - General 1994 Musculoskeletal spine, ribs and pelvis Overall: sacroiliac joint benign 11/10/2015 None Full Exam - General 1994 Musculoskeletal spine, ribs and pelvis Overall: good posture 11/10/2015 None Full Exam - General 1994 Musculoskeletal gait and station Overall: normal gait 11/10/2015 None Full Exam - General 1994 Musculoskeletal gait and station Overall: normal station 11/10/2015 None Full Exam - General 1994 Neurologic gait Overall: no ataxia, no unsteadiness 11/10/2015 None Full Exam - General 1994 Psychiatric orientation/consciousness Overall: oriented to person, place and time 11/10/2015 None Full Exam - General 1994 Psychiatric mood and affect Overall: normal mood and affect 11/10/2015 None Full Exam - General 1994 Constitutional general appearance Overall: well developed 08/07/2015 None Full Exam - General 1994 Constitutional general appearance Overall: in no acute distress 08/07/2015 None Full Exam - General 1994 Constitutional general appearance Overall: well nourished 08/07/2015 None Full Exam - General 1994 Eyes pupils and irises Overall: pupils equal, round, reactive to light and accomodation 08/07/2015 None Full Exam - General 1994 Ears/Nose/Throat otoscopic exam Overall: external auditory canals clear 08/07/2015 None Full Exam - General 1994 Ears/Nose/Throat otoscopic exam Overall: tympanic membranes clear 08/07/2015 None Full Exam - General 1994 Ears/Nose/Throat oral cavity/pharynx/larynx Overall: oral mucosa clear 08/07/2015 None Full Exam - General 1994 Ears/Nose/Throat oral cavity/pharynx/larynx Overall: oropharyngeal mucosa clear 08/07/2015 None Full Exam - General 1994 Ears/Nose/Throat oral cavity/pharynx/larynx Overall: no masses 08/07/2015 None Full Exam - General 1994 Respiratory auscultation Overall: breath sounds clear bilaterally 08/07/2015 None Full Exam - General 1994 Respiratory respiratory effort/rhythm Overall: no retractions 08/07/2015 None Full Exam - General 1994 Respiratory respiratory effort/rhythm Overall: normal rate 08/07/2015 None Full Exam - General 1994 Cardiovascular auscultation of heart Overall: regular rate 08/07/2015 None Full Exam - General 1994 Cardiovascular auscultation of heart Overall: normal heart sounds 08/07/2015 None Full Exam - General 1994 Cardiovascular auscultation of heart Overall: no murmurs 08/07/2015 None Full Exam - General 1994 Abdomen abdominal exam Overall: no tenderness 08/07/2015 None Full Exam - General 1994 Abdomen abdominal exam Overall: normal bowel sounds 08/07/2015 None Full Exam - General 1994 Abdomen abdominal exam Contour: rounded 08/07/2015 None Full Exam - General 1994 Musculoskeletal digits and nails Overall: no clubbing 08/07/2015 None Full Exam - General 1994 Musculoskeletal digits and nails Overall: digits benign 08/07/2015 None Full Exam - General 1994 Musculoskeletal spine, ribs and pelvis Overall: spine benign 08/07/2015 None Full Exam - General 1994 Musculoskeletal spine, ribs and pelvis Overall: sacroiliac joint benign 08/07/2015 None Full Exam - General 1994 Musculoskeletal spine, ribs and pelvis Overall: good posture 08/07/2015 None Full Exam - General 1994 Musculoskeletal gait and station Overall: normal gait 08/07/2015 None Full Exam - General 1994 Musculoskeletal gait and station Overall: normal station 08/07/2015 None Full Exam - General 1994 Neurologic gait Overall: no ataxia, no unsteadiness 08/07/2015 None Full Exam - General 1994 Psychiatric orientation/consciousness Overall: oriented to person, place and time 08/07/2015 None Full Exam - General 1994 Psychiatric mood and affect Overall: normal mood and affect 08/07/2015 None Full Exam - General 1994 Constitutional general appearance Overall: well developed 07/07/2015 None Full Exam - General 1994 Constitutional general appearance Overall: in no acute distress 07/07/2015 None Full Exam - General 1994 Constitutional general appearance Overall: well nourished 07/07/2015 None Full Exam - General 1994 Eyes pupils and irises Overall: pupils equal, round, reactive to light and accomodation 07/07/2015 None Full Exam - General 1994 Ears/Nose/Throat otoscopic exam Overall: external auditory canals clear 07/07/2015 None Full Exam - General 1994 Ears/Nose/Throat otoscopic exam Overall: tympanic membranes clear 07/07/2015 None Full Exam - General 1994 Ears/Nose/Throat oral cavity/pharynx/larynx Overall: oral mucosa clear 07/07/2015 None Full Exam - General 1994 Ears/Nose/Throat oral cavity/pharynx/larynx Overall: oropharyngeal mucosa clear 07/07/2015 None Full Exam - General 1994 Ears/Nose/Throat oral cavity/pharynx/larynx Overall: no masses 07/07/2015 None Full Exam - General 1994 Respiratory auscultation Overall: breath sounds clear bilaterally 07/07/2015 None Full Exam - General 1994 Respiratory respiratory effort/rhythm Overall: no retractions 07/07/2015 None Full Exam - General 1994 Respiratory respiratory effort/rhythm Overall: normal rate 07/07/2015 None Full Exam - General 1994 Cardiovascular auscultation of heart Overall: regular rate 07/07/2015 None Full Exam - General 1994 Cardiovascular auscultation of heart Overall: normal heart sounds 07/07/2015 None Full Exam - General 1994 Cardiovascular auscultation of heart Overall: no murmurs 07/07/2015 None Full Exam - General 1994 Abdomen abdominal exam Overall: no tenderness 07/07/2015 None Full Exam - General 1994 Abdomen abdominal exam Overall: normal bowel sounds 07/07/2015 None Full Exam - General 1994 Abdomen abdominal exam Contour: rounded 07/07/2015 None Full Exam - General 1994 Musculoskeletal digits and nails Overall: no clubbing 07/07/2015 None Full Exam - General 1994 Musculoskeletal digits and nails Overall: digits benign 07/07/2015 None Full Exam - General 1994 Musculoskeletal spine, ribs and pelvis Overall: spine benign 07/07/2015 None Full Exam - General 1994 Musculoskeletal spine, ribs and pelvis Overall: sacroiliac joint benign 07/07/2015 None Full Exam - General 1994 Musculoskeletal spine, ribs and pelvis Overall: good posture 07/07/2015 None Full Exam - General 1994 Musculoskeletal gait and station Overall: normal gait 07/07/2015 None Full Exam - General 1994 Musculoskeletal gait and station Overall: normal station 07/07/2015 None Full Exam - General 1994 Neurologic gait Overall: no ataxia, no unsteadiness 07/07/2015 None Full Exam - General 1994 Psychiatric orientation/consciousness Overall: oriented to person, place and time 07/07/2015 None Full Exam - General 1994 Psychiatric mood and affect Overall: normal mood and affect 07/07/2015 None Full Exam - General 1994 Constitutional general appearance Overall: well developed 04/02/2015 None Full Exam - General 1994 Constitutional general appearance Overall: in no acute distress 04/02/2015 None Full Exam - General 1994 Constitutional general appearance Overall: well nourished 04/02/2015 None Full Exam - General 1994 Constitutional general appearance Hygiene/Attention to Grooming: good hygiene 04/02/2015 None Full Exam - General 1994 Eyes pupils and irises Overall: pupils equal, round, reactive to light and accomodation 04/02/2015 None Full Exam - General 1994 Ears/Nose/Throat otoscopic exam Overall: external auditory canals clear 04/02/2015 None Full Exam - General 1994 Ears/Nose/Throat otoscopic exam Overall: tympanic membranes clear 04/02/2015 None Full Exam - General 1994 Ears/Nose/Throat oral cavity/pharynx/larynx Overall: oral mucosa clear 04/02/2015 None Full Exam - General 1994 Ears/Nose/Throat oral cavity/pharynx/larynx Overall: oropharyngeal mucosa clear 04/02/2015 None Full Exam - General 1994 Ears/Nose/Throat oral cavity/pharynx/larynx Overall: no masses 04/02/2015 None Full Exam - General 1994 Respiratory auscultation Overall: breath sounds clear bilaterally 04/02/2015 None Full Exam - General 1994 Respiratory respiratory effort/rhythm Overall: no retractions 04/02/2015 None Full Exam - General 1994 Respiratory respiratory effort/rhythm Overall: normal rate 04/02/2015 None Full Exam - General 1994 Cardiovascular auscultation of heart Overall: regular rate 04/02/2015 None Full Exam - General 1994 Cardiovascular auscultation of heart Overall: normal heart sounds 04/02/2015 None Full Exam - General 1994 Abdomen abdominal exam Overall: no tenderness 04/02/2015 None Full Exam - General 1994 Abdomen abdominal exam Overall: normal bowel sounds 04/02/2015 None Full Exam - General 1994 Abdomen abdominal exam Contour: rounded 04/02/2015 None Full Exam - General 1994 Neurologic gait Overall: no ataxia, no unsteadiness 04/02/2015 None Full Exam - General 1994 Psychiatric orientation/consciousness Overall: oriented to person, place and time 04/02/2015 None Full Exam - General 1994 Psychiatric mood and affect Overall: normal mood and affect 04/02/2015 None Full Exam - General 1994 Constitutional general appearance Overall: well developed 12/23/2014 None Full Exam - General 1994 Constitutional general appearance Overall: in no acute distress 12/23/2014 None Full Exam - General 1994 Constitutional general appearance Overall: well nourished 12/23/2014 None Full Exam - General 1994 Eyes pupils and irises Overall: pupils equal, round, reactive to light and accomodation 12/23/2014 None Full Exam - General 1994 Ears/Nose/Throat otoscopic exam Overall: external auditory canals clear 12/23/2014 None Full Exam - General 1994 Ears/Nose/Throat otoscopic exam Overall: tympanic membranes clear 12/23/2014 None Full Exam - General 1994 Ears/Nose/Throat oral cavity/pharynx/larynx Overall: oral mucosa clear 12/23/2014 None Full Exam - General 1994 Ears/Nose/Throat oral cavity/pharynx/larynx Overall: oropharyngeal mucosa clear 12/23/2014 None Full Exam - General 1994 Ears/Nose/Throat oral cavity/pharynx/larynx Overall: no masses 12/23/2014 None Full Exam - General 1994 Respiratory auscultation Overall: breath sounds clear bilaterally 12/23/2014 None Full Exam - General 1994 Respiratory respiratory effort/rhythm Overall: no retractions 12/23/2014 None Full Exam - General 1994 Respiratory respiratory effort/rhythm Overall: normal rate 12/23/2014 None Full Exam - General 1994 Cardiovascular auscultation of heart Overall: regular rate 12/23/2014 None Full Exam - General 1994 Cardiovascular auscultation of heart Overall: normal heart sounds 12/23/2014 None Full Exam - General 1994 Cardiovascular auscultation of heart Overall: no murmurs 12/23/2014 None Full Exam - General 1994 Abdomen abdominal exam Overall: no tenderness 12/23/2014 None Full Exam - General 1994 Abdomen abdominal exam Overall: normal bowel sounds 12/23/2014 None Full Exam - General 1994 Abdomen abdominal exam Contour: rounded 12/23/2014 None Full Exam - General 1994 Musculoskeletal digits and nails Overall: no clubbing 12/23/2014 None Full Exam - General 1994 Musculoskeletal digits and nails Overall: digits benign 12/23/2014 None Full Exam - General 1994 Musculoskeletal spine, ribs and pelvis Overall: spine benign 12/23/2014 None Full Exam - General 1994 Musculoskeletal spine, ribs and pelvis Overall: sacroiliac joint benign 12/23/2014 None Full Exam - General 1994 Musculoskeletal spine, ribs and pelvis Overall: good posture 12/23/2014 None Full Exam - General 1994 Musculoskeletal gait and station Overall: normal gait 12/23/2014 None Full Exam - General 1994 Musculoskeletal gait and station Overall: normal station 12/23/2014 None Full Exam - General 1994 Neurologic gait Overall: no ataxia, no unsteadiness 12/23/2014 None Full Exam - General 1994 Psychiatric orientation/consciousness Overall: oriented to person, place and time 12/23/2014 None Full Exam - General 1994 Psychiatric mood and affect Overall: normal mood and affect 12/23/2014 None Full Exam - General 1994 Constitutional general appearance Overall: well developed 10/22/2014 None Full Exam - General 1994 Constitutional general appearance Overall: in no acute distress 10/22/2014 None Full Exam - General 1994 Constitutional general appearance Overall: well nourished 10/22/2014 None Full Exam - General 1994 Eyes pupils and irises Overall: pupils equal, round, reactive to light and accomodation 10/22/2014 None Full Exam - General 1994 Ears/Nose/Throat otoscopic exam Overall: external auditory canals clear 10/22/2014 None Full Exam - General 1994 Ears/Nose/Throat otoscopic exam Overall: tympanic membranes clear 10/22/2014 None Full Exam - General 1994 Ears/Nose/Throat oral cavity/pharynx/larynx Overall: oral mucosa clear 10/22/2014 None Full Exam - General 1994 Ears/Nose/Throat oral cavity/pharynx/larynx Overall: oropharyngeal mucosa clear 10/22/2014 None Full Exam - General 1994 Ears/Nose/Throat oral cavity/pharynx/larynx Overall: no masses 10/22/2014 None Full Exam - General 1994 Respiratory auscultation Overall: breath sounds clear bilaterally 10/22/2014 None Full Exam - General 1994 Respiratory respiratory effort/rhythm Overall: no retractions 10/22/2014 None Full Exam - General 1994 Respiratory respiratory effort/rhythm Overall: normal rate 10/22/2014 None Full Exam - General 1994 Cardiovascular auscultation of heart Overall: regular rate 10/22/2014 None Full Exam - General 1994 Cardiovascular auscultation of heart Overall: normal heart sounds 10/22/2014 None Full Exam - General 1994 Cardiovascular auscultation of heart Overall: no murmurs 10/22/2014 None Full Exam - General 1994 Abdomen abdominal exam Overall: no tenderness 10/22/2014 None Full Exam - General 1994 Abdomen abdominal exam Overall: normal bowel sounds 10/22/2014 None Full Exam - General 1994 Abdomen abdominal exam Contour: rounded 10/22/2014 None Full Exam - General 1994 Musculoskeletal digits and nails Overall: no clubbing 10/22/2014 None Full Exam - General 1994 Musculoskeletal digits and nails Overall: digits benign 10/22/2014 None Full Exam - General 1994 Musculoskeletal spine, ribs and pelvis Overall: spine benign 10/22/2014 None Full Exam - General 1994 Musculoskeletal spine, ribs and pelvis Overall: sacroiliac joint benign 10/22/2014 None Full Exam - General 1994 Musculoskeletal spine, ribs and pelvis Overall: good posture 10/22/2014 None Full Exam - General 1994 Musculoskeletal gait and station Overall: normal gait 10/22/2014 None Full Exam - General 1994 Musculoskeletal gait and station Overall: normal station 10/22/2014 None Full Exam - General 1994 Neurologic gait Overall: no ataxia, no unsteadiness 10/22/2014 None Full Exam - General 1994 Psychiatric orientation/consciousness Overall: oriented to person, place and time 10/22/2014 None Full Exam - General 1994 Psychiatric mood and affect Overall: normal mood and affect 10/22/2014 None Full Exam - General 1994 Constitutional general appearance Overall: well developed 09/26/2014 None Full Exam - General 1994 Constitutional general appearance Overall: in no acute distress 09/26/2014 None Full Exam - General 1994 Constitutional general appearance Overall: well nourished 09/26/2014 None Full Exam - General 1994 Eyes pupils and irises Overall: pupils equal, round, reactive to light and accomodation 09/26/2014 None Full Exam - General 1994 Ears/Nose/Throat oral cavity/pharynx/larynx Overall: oral mucosa clear 09/26/2014 None Full Exam - General 1994 Ears/Nose/Throat oral cavity/pharynx/larynx Overall: no masses 09/26/2014 None Full Exam - General 1994 Respiratory respiratory effort/rhythm Overall: no retractions 09/26/2014 None Full Exam - General 1994 Respiratory respiratory effort/rhythm Overall: normal rate 09/26/2014 None Full Exam - General 1994 Cardiovascular auscultation of heart Overall: regular rate 09/26/2014 None Full Exam - General 1994 Cardiovascular auscultation of heart Overall: normal heart sounds 09/26/2014 None Full Exam - General 1994 Cardiovascular auscultation of heart Overall: no murmurs 09/26/2014 None Full Exam - General 1994 Musculoskeletal digits and nails Overall: no clubbing 09/26/2014 None Full Exam - General 1994 Musculoskeletal digits and nails Overall: digits benign 09/26/2014 None Full Exam - General 1994 Musculoskeletal spine, ribs and pelvis Overall: good posture 09/26/2014 None Full Exam - General 1994 Musculoskeletal gait and station Overall: normal gait 09/26/2014 None Full Exam - General 1994 Musculoskeletal gait and station Overall: normal station 09/26/2014 None Full Exam - General 1994 Psychiatric orientation/consciousness Overall: oriented to person, place and time 09/26/2014 None Full Exam - General 1994 Psychiatric mood and affect Overall: normal mood and affect 09/26/2014 None Full Exam - General 1994 Ears/Nose/Throat otoscopic exam Overall: tympanic membranes clear 09/26/2014 None Full Exam - General 1994 Ears/Nose/Throat otoscopic exam Overall: external auditory canals clear 09/26/2014 None Full Exam - General 1994 Respiratory auscultation Overall: breath sounds clear bilaterally 09/26/2014 None Full Exam - General 1994 Lymphatic neck nodes Overall: anterior cervical chain benign 09/26/2014 None Full Exam - General 1994 Lymphatic neck nodes Overall: posterior cervical chain benign 09/26/2014 None Full Exam - General 1994 Constitutional general appearance Overall: well developed 07/01/2014 None Full Exam - General 1994 Constitutional general appearance Overall: in no acute distress 07/01/2014 None Full Exam - General 1994 Constitutional general appearance Overall: well nourished 07/01/2014 None Full Exam - General 1994 Eyes pupils and irises Overall: pupils equal, round, reactive to light and accomodation 07/01/2014 None Full Exam - General 1994 Ears/Nose/Throat otoscopic exam Overall: external auditory canals clear 07/01/2014 None Full Exam - General 1994 Ears/Nose/Throat otoscopic exam Overall: tympanic membranes clear 07/01/2014 None Full Exam - General 1994 Ears/Nose/Throat oral cavity/pharynx/larynx Overall: oral mucosa clear 07/01/2014 None Full Exam - General 1994 Ears/Nose/Throat oral cavity/pharynx/larynx Overall: oropharyngeal mucosa clear 07/01/2014 None Full Exam - General 1994 Ears/Nose/Throat oral cavity/pharynx/larynx Overall: no masses 07/01/2014 None Full Exam - General 1994 Respiratory auscultation Overall: breath sounds clear bilaterally 07/01/2014 None Full Exam - General 1994 Respiratory respiratory effort/rhythm Overall: no retractions 07/01/2014 None Full Exam - General 1994 Respiratory respiratory effort/rhythm Overall: normal rate 07/01/2014 None Full Exam - General 1994 Cardiovascular auscultation of heart Overall: regular rate 07/01/2014 None Full Exam - General 1994 Cardiovascular auscultation of heart Overall: normal heart sounds 07/01/2014 None Full Exam - General 1994 Cardiovascular auscultation of heart Overall: no murmurs 07/01/2014 None Full Exam - General 1994 Abdomen abdominal exam Overall: no tenderness 07/01/2014 None Full Exam - General 1994 Abdomen abdominal exam Overall: normal bowel sounds 07/01/2014 None Full Exam - General 1994 Abdomen abdominal exam Contour: rounded 07/01/2014 None Full Exam - General 1994 Musculoskeletal digits and nails Overall: no clubbing 07/01/2014 None Full Exam - General 1994 Musculoskeletal digits and nails Overall: digits benign 07/01/2014 None Full Exam - General 1994 Musculoskeletal spine, ribs and pelvis Overall: spine benign 07/01/2014 None Full Exam - General 1994 Musculoskeletal spine, ribs and pelvis Overall: sacroiliac joint benign 07/01/2014 None Full Exam - General 1994 Musculoskeletal spine, ribs and pelvis Overall: good posture 07/01/2014 None Full Exam - General 1994 Musculoskeletal gait and station Overall: normal gait 07/01/2014 None Full Exam - General 1994 Musculoskeletal gait and station Overall: normal station 07/01/2014 None Full Exam - General 1994 Neurologic gait Overall: no ataxia, no unsteadiness 07/01/2014 None Full Exam - General 1994 Psychiatric orientation/consciousness Overall: oriented to person, place and time 07/01/2014 None Full Exam - General 1994 Psychiatric mood and affect Overall: normal mood and affect 07/01/2014 None Full Exam - General 1994 Constitutional general appearance Overall: well developed 06/09/2014 None Full Exam - General 1994 Constitutional general appearance Overall: in no acute distress 06/09/2014 None Full Exam - General 1994 Constitutional general appearance Overall: well nourished 06/09/2014 None Full Exam - General 1994 Eyes pupils and irises Overall: pupils equal, round, reactive to light and accomodation 06/09/2014 None Full Exam - General 1994 Ears/Nose/Throat otoscopic exam Overall: external auditory canals clear 06/09/2014 None Full Exam - General 1994 Ears/Nose/Throat otoscopic exam Overall: tympanic membranes clear 06/09/2014 None Full Exam - General 1994 Ears/Nose/Throat oral cavity/pharynx/larynx Overall: oral mucosa clear 06/09/2014 None Full Exam - General 1994 Ears/Nose/Throat oral cavity/pharynx/larynx Overall: oropharyngeal mucosa clear 06/09/2014 None Full Exam - General 1994 Ears/Nose/Throat oral cavity/pharynx/larynx Overall: no masses 06/09/2014 None Full Exam - General 1994 Respiratory auscultation Overall: breath sounds clear bilaterally 06/09/2014 None Full Exam - General 1994 Respiratory respiratory effort/rhythm Overall: no retractions 06/09/2014 None Full Exam - General 1994 Respiratory respiratory effort/rhythm Overall: normal rate 06/09/2014 None Full Exam - General 1994 Cardiovascular auscultation of heart Overall: regular rate 06/09/2014 None Full Exam - General 1994 Cardiovascular auscultation of heart Overall: normal heart sounds 06/09/2014 None Full Exam - General 1994 Cardiovascular auscultation of heart Overall: no murmurs 06/09/2014 None Full Exam - General 1994 Abdomen abdominal exam Overall: no tenderness 06/09/2014 None Full Exam - General 1994 Abdomen abdominal exam Overall: normal bowel sounds 06/09/2014 None Full Exam - General 1994 Abdomen abdominal exam Contour: rounded 06/09/2014 None Full Exam - General 1994 Musculoskeletal digits and nails Overall: no clubbing 06/09/2014 None Full Exam - General 1994 Musculoskeletal digits and nails Overall: digits benign 06/09/2014 None Full Exam - General 1994 Musculoskeletal spine, ribs and pelvis Overall: spine benign 06/09/2014 None Full Exam - General 1994 Musculoskeletal spine, ribs and pelvis Overall: sacroiliac joint benign 06/09/2014 None Full Exam - General 1994 Musculoskeletal spine, ribs and pelvis Overall: good posture 06/09/2014 None Full Exam - General 1994 Musculoskeletal gait and station Overall: normal gait 06/09/2014 None Full Exam - General 1994 Musculoskeletal gait and station Overall: normal station 06/09/2014 None Full Exam - General 1994 Neurologic gait Overall: no ataxia, no unsteadiness 06/09/2014 None Full Exam - General 1994 Psychiatric orientation/consciousness Overall: oriented to person, place and time 06/09/2014 None Full Exam - General 1994 Psychiatric mood and affect Overall: normal mood and affect 06/09/2014 None Full Exam - General 1994 Constitutional general appearance Overall: well developed 05/07/2014 None Full Exam - General 1994 Constitutional general appearance Overall: in no acute distress 05/07/2014 None Full Exam - General 1994 Constitutional general appearance Overall: well nourished 05/07/2014 None Full Exam - General 1994 Eyes pupils and irises Overall: pupils equal, round, reactive to light and accomodation 05/07/2014 None Full Exam - General 1994 Ears/Nose/Throat otoscopic exam Overall: external auditory canals clear 05/07/2014 None Full Exam - General 1994 Ears/Nose/Throat otoscopic exam Overall: tympanic membranes clear 05/07/2014 None Full Exam - General 1994 Ears/Nose/Throat oral cavity/pharynx/larynx Overall: oral mucosa clear 05/07/2014 None Full Exam - General 1994 Ears/Nose/Throat oral cavity/pharynx/larynx Overall: oropharyngeal mucosa clear 05/07/2014 None Full Exam - General 1994 Ears/Nose/Throat oral cavity/pharynx/larynx Overall: no masses 05/07/2014 None Full Exam - General 1994 Respiratory auscultation Overall: breath sounds clear bilaterally 05/07/2014 None Full Exam - General 1994 Respiratory respiratory effort/rhythm Overall: no retractions 05/07/2014 None Full Exam - General 1994 Respiratory respiratory effort/rhythm Overall: normal rate 05/07/2014 None Full Exam - General 1994 Cardiovascular auscultation of heart Overall: regular rate 05/07/2014 None Full Exam - General 1994 Cardiovascular auscultation of heart Overall: normal heart sounds 05/07/2014 None Full Exam - General 1994 Cardiovascular auscultation of heart Overall: no murmurs 05/07/2014 None Full Exam - General 1994 Abdomen abdominal exam Overall: no tenderness 05/07/2014 None Full Exam - General 1994 Abdomen abdominal exam Overall: normal bowel sounds 05/07/2014 None Full Exam - General 1994 Abdomen abdominal exam Contour: rounded 05/07/2014 None Full Exam - General 1994 Musculoskeletal digits and nails Overall: no clubbing 05/07/2014 None Full Exam - General 1994 Musculoskeletal digits and nails Overall: digits benign 05/07/2014 None Full Exam - General 1994 Musculoskeletal spine, ribs and pelvis Overall: spine benign 05/07/2014 None Full Exam - General 1994 Musculoskeletal spine, ribs and pelvis Overall: sacroiliac joint benign 05/07/2014 None Full Exam - General 1994 Musculoskeletal spine, ribs and pelvis Overall: good posture 05/07/2014 None Full Exam - General 1994 Musculoskeletal gait and station Overall: normal gait 05/07/2014 None Full Exam - General 1994 Musculoskeletal gait and station Overall: normal station 05/07/2014 None Full Exam - General 1994 Neurologic gait Overall: no ataxia, no unsteadiness 05/07/2014 None Full Exam - General 1994 Psychiatric orientation/consciousness Overall: oriented to person, place and time 05/07/2014 None Full Exam - General 1994 Psychiatric mood and affect Overall: normal mood and affect 05/07/2014 None Full Exam - General 1994 Constitutional general appearance Overall: well developed 04/21/2014 None Full Exam - General 1994 Constitutional general appearance Overall: well nourished 04/21/2014 None Full Exam - General 1994 Eyes pupils and irises Overall: pupils equal, round, reactive to light and accomodation 04/21/2014 None Full Exam - General 1994 Ears/Nose/Throat otoscopic exam Overall: external auditory canals clear 04/21/2014 None Full Exam - General 1994 Ears/Nose/Throat otoscopic exam Overall: tympanic membranes clear 04/21/2014 None Full Exam - General 1994 Ears/Nose/Throat oral cavity/pharynx/larynx Overall: oropharyngeal mucosa clear 04/21/2014 None Full Exam - General 1994 Ears/Nose/Throat oral cavity/pharynx/larynx Overall: no masses 04/21/2014 None Full Exam - General 1994 Respiratory auscultation Overall: breath sounds clear bilaterally 04/21/2014 None Full Exam - General 1994 Respiratory respiratory effort/rhythm Overall: no retractions 04/21/2014 None Full Exam - General 1994 Respiratory respiratory effort/rhythm Overall: normal rate 04/21/2014 None Full Exam - General 1994 Cardiovascular auscultation of heart Overall: regular rate 04/21/2014 None Full Exam - General 1994 Cardiovascular auscultation of heart Overall: normal heart sounds 04/21/2014 None Full Exam - General 1994 Cardiovascular auscultation of heart Overall: no murmurs 04/21/2014 None Full Exam - General 1994 Abdomen abdominal exam Overall: no tenderness 04/21/2014 None Full Exam - General 1994 Abdomen abdominal exam Overall: normal bowel sounds 04/21/2014 None Full Exam - General 1994 Abdomen abdominal exam Contour: rounded 04/21/2014 None Full Exam - General 1994 Musculoskeletal digits and nails Overall: no clubbing 04/21/2014 None Full Exam - General 1994 Musculoskeletal digits and nails Overall: digits benign 04/21/2014 None Full Exam - General 1994 Musculoskeletal spine, ribs and pelvis Overall: spine benign 04/21/2014 None Full Exam - General 1994 Musculoskeletal spine, ribs and pelvis Overall: sacroiliac joint benign 04/21/2014 None Full Exam - General 1994 Musculoskeletal spine, ribs and pelvis Overall: good posture 04/21/2014 None Full Exam - General 1994 Musculoskeletal gait and station Overall: normal gait 04/21/2014 None Full Exam - General 1994 Musculoskeletal gait and station Overall: normal station 04/21/2014 None Full Exam - General 1994 Neurologic gait Overall: no ataxia, no unsteadiness 04/21/2014 None Full Exam - General 1994 Psychiatric orientation/consciousness Overall: oriented to person, place and time 04/21/2014 None Full Exam - General 1994 Psychiatric mood and affect Overall: normal mood and affect 04/21/2014 None Full Exam - General 1994 Constitutional general appearance Hygiene/Attention to Grooming: good hygiene 04/21/2014 None Full Exam - General 1994 Constitutional general appearance Evidence of Distress: mild distress 04/21/2014 - pt unsteady with walking - Full Exam - General 1994 Ears/Nose/Throat oral cavity/pharynx/larynx Overall: oral mucosa clear 04/21/2014 but dry Full Exam - General 1994 Cardiovascular extremities Edema present: pitting 04/21/2014 None Full Exam - General 1994 Cardiovascular extremities Edema present: severity 1+ - 4+: 2+ 04/21/2014 None Full Exam - General 1994 Cardiovascular extremities Edema present: bilateral 04/21/2014 None Full Exam - General 1994 Integument inspection of skin Overall: few scattered moles, no gross abnormalities 04/21/2014 None Full Exam - General 1994 Constitutional general appearance Overall: well developed 02/14/2014 None Full Exam - General 1994 Constitutional general appearance Overall: in no acute distress 02/14/2014 None Full Exam - General 1994 Constitutional general appearance Overall: well nourished 02/14/2014 None Full Exam - General 1994 Eyes pupils and irises Overall: pupils equal, round, reactive to light and accomodation 02/14/2014 None Full Exam - General 1994 Ears/Nose/Throat otoscopic exam Overall: external auditory canals clear 02/14/2014 None Full Exam - General 1994 Ears/Nose/Throat otoscopic exam Overall: tympanic membranes clear 02/14/2014 None Full Exam - General 1994 Ears/Nose/Throat oral cavity/pharynx/larynx Overall: oral mucosa clear 02/14/2014 None Full Exam - General 1994 Ears/Nose/Throat oral cavity/pharynx/larynx Overall: oropharyngeal mucosa clear 02/14/2014 None Full Exam - General 1994 Ears/Nose/Throat oral cavity/pharynx/larynx Overall: no masses 02/14/2014 None Full Exam - General 1994 Respiratory auscultation Overall: breath sounds clear bilaterally 02/14/2014 None Full Exam - General 1994 Respiratory respiratory effort/rhythm Overall: no retractions 02/14/2014 None Full Exam - General 1994 Respiratory respiratory effort/rhythm Overall: normal rate 02/14/2014 None Full Exam - General 1994 Cardiovascular auscultation of heart Overall: regular rate 02/14/2014 None Full Exam - General 1994 Cardiovascular auscultation of heart Overall: normal heart sounds 02/14/2014 None Full Exam - General 1994 Cardiovascular auscultation of heart Overall: no murmurs 02/14/2014 None Full Exam - General 1994 Neurologic gait Overall: no ataxia, no unsteadiness 02/14/2014 None Full Exam - General 1994 Psychiatric orientation/consciousness Overall: oriented to person, place and time 02/14/2014 None Full Exam - General 1994 Psychiatric mood and affect Overall: normal mood and affect 02/14/2014 None Full Exam - General 1994 Integument inspection of skin Dermatitis: erythema 02/14/2014 anterior left lower leg/t ibia, healing bite jeff. Full Exam - Cardiology Respiratory auscultation Overall: breath sounds clear bilaterally 01/16/2014 None Full Exam - Cardiology Cardiovascular auscultation of heart Overall: regular rate 01/16/2014 None Full Exam - Cardiology Constitutional general appearance Overall: well nourished 01/16/2014 None Full Exam - Cardiology Constitutional general appearance Overall: well developed 01/16/2014 None Full Exam - Cardiology Constitutional general appearance Overall: in no acute distress 01/16/2014 None Full Exam - Cardiology Psychiatric orientation/consciousness Overall: oriented to person, place and time 01/16/2014 None Full Exam - Cardiology Psychiatric mood and affect Overall: normal mood and affect 01/16/2014 None Full Exam - Cardiology Musculoskeletal gait and station Overall: normal gait 01/16/2014 None Full Exam - Cardiology Musculoskeletal gait and station Overall: normal station 01/16/2014 - upper extremity with t enderness to palpation over the anterior head of biceps bilaterally Full Exam - General 1994 Constitutional general appearance Overall: well developed 11/14/2013 None Full Exam - General 1994 Constitutional general appearance Overall: in no acute distress 11/14/2013 None Full Exam - General 1994 Constitutional general appearance Overall: well nourished 11/14/2013 None Full Exam - General 1994 Eyes pupils and irises Overall: pupils equal, round, reactive to light and accomodation 11/14/2013 None Full Exam - General 1994 Ears/Nose/Throat otoscopic exam Overall: external auditory canals clear 11/14/2013 None Full Exam - General 1994 Ears/Nose/Throat otoscopic exam Overall: tympanic membranes clear 11/14/2013 None Full Exam - General 1994 Ears/Nose/Throat oral cavity/pharynx/larynx Overall: oral mucosa clear 11/14/2013 None Full Exam - General 1994 Ears/Nose/Throat oral cavity/pharynx/larynx Overall: oropharyngeal mucosa clear 11/14/2013 None Full Exam - General 1994 Ears/Nose/Throat oral cavity/pharynx/larynx Overall: no masses 11/14/2013 None Full Exam - General 1994 Respiratory auscultation Overall: breath sounds clear bilaterally 11/14/2013 None Full Exam - General 1994 Respiratory respiratory effort/rhythm Overall: no retractions 11/14/2013 None Full Exam - General 1994 Respiratory respiratory effort/rhythm Overall: normal rate 11/14/2013 None Full Exam - General 1994 Cardiovascular auscultation of heart Overall: regular rate 11/14/2013 None Full Exam - General 1994 Cardiovascular auscultation of heart Overall: normal heart sounds 11/14/2013 None Full Exam - General 1994 Cardiovascular auscultation of heart Overall: no murmurs 11/14/2013 None Full Exam - General 1994 Abdomen abdominal exam Overall: no tenderness 11/14/2013 None Full Exam - General 1994 Abdomen abdominal exam Overall: normal bowel sounds 11/14/2013 None Full Exam - General 1994 Abdomen abdominal exam Contour: rounded 11/14/2013 None Full Exam - General 1994 Musculoskeletal digits and nails Overall: no clubbing 11/14/2013 None Full Exam - General 1994 Musculoskeletal digits and nails Overall: digits benign 11/14/2013 None Full Exam - General 1994 Musculoskeletal spine, ribs and pelvis Overall: spine benign 11/14/2013 None Full Exam - General 1994 Musculoskeletal spine, ribs and pelvis Overall: sacroiliac joint benign 11/14/2013 None Full Exam - General 1994 Musculoskeletal spine, ribs and pelvis Overall: good posture 11/14/2013 None Full Exam - General 1994 Musculoskeletal gait and station Overall: normal gait 11/14/2013 None Full Exam - General 1994 Musculoskeletal gait and station Overall: normal station 11/14/2013 None Full Exam - General 1994 Neurologic gait Overall: no ataxia, no unsteadiness 11/14/2013 None Full Exam - General 1994 Psychiatric orientation/consciousness Overall: oriented to person, place and time 11/14/2013 None Full Exam - General 1994 Psychiatric mood and affect Overall: normal mood and affect 11/14/2013 None Full Exam - General 1994 Constitutional general appearance Overall: well developed 10/24/2013 None Full Exam - General 1994 Constitutional general appearance Overall: in no acute distress 10/24/2013 None Full Exam - General 1994 Constitutional general appearance Overall: well nourished 10/24/2013 None Full Exam - General 1994 Eyes pupils and irises Overall: pupils equal, round, reactive to light and accomodation 10/24/2013 None Full Exam - General 1994 Ears/Nose/Throat otoscopic exam Overall: external auditory canals clear 10/24/2013 None Full Exam - General 1994 Ears/Nose/Throat otoscopic exam Overall: tympanic membranes clear 10/24/2013 None Full Exam - General 1994 Ears/Nose/Throat oral cavity/pharynx/larynx Overall: oral mucosa clear 10/24/2013 None Full Exam - General 1994 Ears/Nose/Throat oral cavity/pharynx/larynx Overall: oropharyngeal mucosa clear 10/24/2013 None Full Exam - General 1994 Ears/Nose/Throat oral cavity/pharynx/larynx Overall: no masses 10/24/2013 None Full Exam - General 1994 Respiratory auscultation Overall: breath sounds clear bilaterally 10/24/2013 None Full Exam - General 1994 Respiratory respiratory effort/rhythm Overall: no retractions 10/24/2013 None Full Exam - General 1994 Respiratory respiratory effort/rhythm Overall: normal rate 10/24/2013 None Full Exam - General 1994 Cardiovascular auscultation of heart Overall: regular rate 10/24/2013 None Full Exam - General 1994 Cardiovascular auscultation of heart Overall: normal heart sounds 10/24/2013 None Full Exam - General 1994 Cardiovascular auscultation of heart Overall: no murmurs 10/24/2013 None Full Exam - General 1994 Abdomen abdominal exam Overall: no tenderness 10/24/2013 None Full Exam - General 1994 Abdomen abdominal exam Overall: normal bowel sounds 10/24/2013 None Full Exam - General 1994 Abdomen abdominal exam Contour: rounded 10/24/2013 None Full Exam - General 1994 Musculoskeletal digits and nails Overall: no clubbing 10/24/2013 None Full Exam - General 1994 Musculoskeletal digits and nails Overall: digits benign 10/24/2013 None Full Exam - General 1994 Musculoskeletal spine, ribs and pelvis Overall: spine benign 10/24/2013 None Full Exam - General 1994 Musculoskeletal spine, ribs and pelvis Overall: sacroiliac joint benign 10/24/2013 None Full Exam - General 1994 Musculoskeletal spine, ribs and pelvis Overall: good posture 10/24/2013 None Full Exam - General 1994 Musculoskeletal gait and station Overall: normal gait 10/24/2013 None Full Exam - General 1994 Musculoskeletal gait and station Overall: normal station 10/24/2013 None Full Exam - General 1994 Neurologic gait Overall: no ataxia, no unsteadiness 10/24/2013 None Full Exam - General 1994 Psychiatric orientation/consciousness Overall: oriented to person, place and time 10/24/2013 None Full Exam - General 1994 Psychiatric mood and affect Overall: normal mood and affect 10/24/2013 None Full Exam - General 1994 Constitutional general appearance Overall: well developed 06/24/2013 None Full Exam - General 1994 Cardiovascular auscultation of heart Overall: no murmurs 06/24/2013 None Full Exam - General 1994 Abdomen abdominal exam Overall: no tenderness 06/24/2013 None Full Exam - General 1994 Abdomen abdominal exam Overall: normal bowel sounds 06/24/2013 None Full Exam - General 1994 Abdomen abdominal exam Contour: rounded 06/24/2013 None Full Exam - General 1994 Musculoskeletal digits and nails Overall: no clubbing 06/24/2013 None Full Exam - General 1994 Musculoskeletal digits and nails Overall: digits benign 06/24/2013 None Full Exam - General 1994 Musculoskeletal spine, ribs and pelvis Overall: spine benign 06/24/2013 None Full Exam - General 1994 Musculoskeletal spine, ribs and pelvis Overall: sacroiliac joint benign 06/24/2013 None Full Exam - General 1994 Musculoskeletal spine, ribs and pelvis Overall: good posture 06/24/2013 None Full Exam - General 1994 Musculoskeletal gait and station Overall: normal gait 06/24/2013 None Full Exam - General 1994 Musculoskeletal gait and station Overall: normal station 06/24/2013 None Full Exam - General 1994 Neurologic gait Overall: no ataxia, no unsteadiness 06/24/2013 None Full Exam - General 1994 Psychiatric orientation/consciousness Overall: oriented to person, place and time 06/24/2013 None Full Exam - General 1994 Psychiatric mood and affect Overall: normal mood and affect 06/24/2013 None Full Exam - General 1994 Constitutional general appearance Overall: in no acute distress 06/24/2013 None Full Exam - General 1994 Constitutional general appearance Overall: well nourished 06/24/2013 None Full Exam - General 1994 Eyes pupils and irises Overall: pupils equal, round, reactive to light and accomodation 06/24/2013 None Full Exam - General 1994 Ears/Nose/Throat otoscopic exam Overall: external auditory canals clear 06/24/2013 None Full Exam - General 1994 Ears/Nose/Throat otoscopic exam Overall: tympanic membranes clear 06/24/2013 None Full Exam - General 1994 Ears/Nose/Throat oral cavity/pharynx/larynx Overall: oral mucosa clear 06/24/2013 None Full Exam - General 1994 Ears/Nose/Throat oral cavity/pharynx/larynx Overall: oropharyngeal mucosa clear 06/24/2013 None Full Exam - General 1994 Ears/Nose/Throat oral cavity/pharynx/larynx Overall: no masses 06/24/2013 None Full Exam - General 1994 Respiratory auscultation Overall: breath sounds clear bilaterally 06/24/2013 None Full Exam - General 1994 Respiratory respiratory effort/rhythm Overall: no retractions 06/24/2013 None Full Exam - General 1994 Respiratory respiratory effort/rhythm Overall: normal rate 06/24/2013 None Full Exam - General 1994 Cardiovascular auscultation of heart Overall: regular rate 06/24/2013 None Full Exam - General 1994 Cardiovascular auscultation of heart Overall: normal heart sounds 06/24/2013 None Full Exam - General 1995 Constitutional general appearance Overall: well developed 06/05/2013 None Full Exam - General 1995 Constitutional general appearance Overall: in no acute distress 06/05/2013 None Full Exam - General 1994 Constitutional general appearance Overall: well nourished 06/05/2013 None Full Exam - General 1994 Eyes pupils and irises Overall: pupils equal, round, reactive to light and accomodation 06/05/2013 None Full Exam - General 1995 Ears/Nose/Throat otoscopic exam Overall: external auditory canals clear 06/05/2013 None Full Exam - General 1995 Ears/Nose/Throat otoscopic exam Overall: tympanic membranes clear 06/05/2013 None Full Exam - General 1995 Ears/Nose/Throat oral cavity/pharynx/larynx Overall: oral mucosa clear 06/05/2013 None Full Exam - General 1995 Ears/Nose/Throat oral cavity/pharynx/larynx Overall: oropharyngeal mucosa clear 06/05/2013 None Full Exam - General 1995 Ears/Nose/Throat oral cavity/pharynx/larynx Overall: no masses 06/05/2013 None Full Exam - General 1994 Respiratory auscultation Overall: breath sounds clear bilaterally 06/05/2013 None Full Exam - General 1994 Respiratory respiratory effort/rhythm Overall: no retractions 06/05/2013 None Full Exam - General 1994 Respiratory respiratory effort/rhythm Overall: normal rate 06/05/2013 None Full Exam - General 1994 Cardiovascular auscultation of heart Overall: regular rate 06/05/2013 None Full Exam - General 1994 Cardiovascular auscultation of heart Overall: normal heart sounds 06/05/2013 None Full Exam - General 1994 Cardiovascular auscultation of heart Overall: no murmurs 06/05/2013 None Full Exam - General 1994 Abdomen abdominal exam Overall: no tenderness 06/05/2013 None Full Exam - General 1994 Abdomen abdominal exam Overall: normal bowel sounds 06/05/2013 None Full Exam - General 1994 Abdomen abdominal exam Contour: rounded 06/05/2013 None Full Exam - General 1994 Musculoskeletal digits and nails Overall: no clubbing 06/05/2013 None Full Exam - General 1994 Musculoskeletal digits and nails Overall: digits benign 06/05/2013 None Full Exam - General 1995 Musculoskeletal spine, ribs and pelvis Overall: spine benign 06/05/2013 None Full Exam - General 1995 Musculoskeletal spine, ribs and pelvis Overall: sacroiliac joint benign 06/05/2013 None Full Exam - General 1994 Musculoskeletal spine, ribs and pelvis Overall: good posture 06/05/2013 None Full Exam - General 1995 Musculoskeletal gait and station Overall: normal gait 06/05/2013 None Full Exam - General 1994 Musculoskeletal gait and station Overall: normal station 06/05/2013 None Full Exam - General 1994 Neurologic gait Overall: no ataxia, no unsteadiness 06/05/2013 None Full Exam - General 1994 Psychiatric orientation/consciousness Overall: oriented to person, place and time 06/05/2013 None Full Exam - General 1994 Psychiatric mood and affect Overall: normal mood and affect 06/05/2013 None Full Exam - General 1994 Ears/Nose/Throat oral cavity/pharynx/larynx Overall: oropharyngeal mucosa clear 04/01/2013 None Full Exam - General 1994 Ears/Nose/Throat oral cavity/pharynx/larynx Overall: no masses 04/01/2013 None Full Exam - General 1994 Respiratory auscultation Overall: breath sounds clear bilaterally 04/01/2013 None Full Exam - General 1994 Respiratory respiratory effort/rhythm Overall: no retractions 04/01/2013 None Full Exam - General 1994 Respiratory respiratory effort/rhythm Overall: normal rate 04/01/2013 None Full Exam - General 1994 Cardiovascular auscultation of heart Overall: regular rate 04/01/2013 None Full Exam - General 1994 Cardiovascular auscultation of heart Overall: normal heart sounds 04/01/2013 None Full Exam - General 1994 Cardiovascular auscultation of heart Overall: no murmurs 04/01/2013 None Full Exam - General 1994 Abdomen abdominal exam Overall: no tenderness 04/01/2013 None Full Exam - General 1994 Abdomen abdominal exam Overall: normal bowel sounds 04/01/2013 None Full Exam - General 1994 Abdomen abdominal exam Contour: rounded 04/01/2013 None Full Exam - General 1994 Musculoskeletal digits and nails Overall: no clubbing 04/01/2013 None Full Exam - General 1994 Musculoskeletal digits and nails Overall: digits benign 04/01/2013 None Full Exam - General 1994 Musculoskeletal spine, ribs and pelvis Overall: spine benign 04/01/2013 None Full Exam - General 1994 Constitutional general appearance Overall: well developed 04/01/2013 None Full Exam - General 1995 Constitutional general appearance Overall: in no acute distress 04/01/2013 None Full Exam - General 1995 Constitutional general appearance Overall: well nourished 04/01/2013 None Full Exam - General 1995 Eyes pupils and irises Overall: pupils equal, round, reactive to light and accomodation 04/01/2013 None Full Exam - General 1995 Ears/Nose/Throat otoscopic exam Overall: external auditory canals clear 04/01/2013 None Full Exam - General 1995 Ears/Nose/Throat otoscopic exam Overall: tympanic membranes clear 04/01/2013 None Full Exam - General 1995 Ears/Nose/Throat oral cavity/pharynx/larynx Overall: oral mucosa clear 04/01/2013 None Full Exam - General 1995 Musculoskeletal spine, ribs and pelvis Overall: sacroiliac joint benign 04/01/2013 None Full Exam - General 1995 Musculoskeletal spine, ribs and pelvis Overall: good posture 04/01/2013 None Full Exam - General 1994 Musculoskeletal gait and station Overall: normal gait 04/01/2013 None Full Exam - General 1994 Musculoskeletal gait and station Overall: normal station 04/01/2013 None Full Exam - General 1994 Neurologic gait Overall: no ataxia, no unsteadiness 04/01/2013 None Full Exam - General 1994 Psychiatric orientation/consciousness Overall: oriented to person, place and time 04/01/2013 None Full Exam - General 1994 Psychiatric mood and affect Overall: normal mood and affect 04/01/2013 None Full Exam - General 1994 Constitutional general appearance Overall: well developed 01/29/2013 None Full Exam - General 1994 Constitutional general appearance Overall: in no acute distress 01/29/2013 None Full Exam - General 1994 Constitutional general appearance Overall: well nourished 01/29/2013 None Full Exam - General 1994 Eyes pupils and irises Overall: pupils equal, round, reactive to light and accomodation 01/29/2013 None Full Exam - General 1995 Ears/Nose/Throat otoscopic exam Overall: external auditory canals clear 01/29/2013 None Full Exam - General 1995 Ears/Nose/Throat otoscopic exam Overall: tympanic membranes clear 01/29/2013 None Full Exam - General 1995 Ears/Nose/Throat oral cavity/pharynx/larynx Overall: oral mucosa clear 01/29/2013 None Full Exam - General 1995 Ears/Nose/Throat oral cavity/pharynx/larynx Overall: oropharyngeal mucosa clear 01/29/2013 None Full Exam - General 1995 Ears/Nose/Throat oral cavity/pharynx/larynx Overall: no masses 01/29/2013 None Full Exam - General 1995 Respiratory auscultation Overall: breath sounds clear bilaterally 01/29/2013 None Full Exam - General 1995 Respiratory respiratory effort/rhythm Overall: no retractions 01/29/2013 None Full Exam - General 1995 Respiratory respiratory effort/rhythm Overall: normal rate 01/29/2013 None Full Exam - General 1995 Cardiovascular auscultation of heart Overall: regular rate 01/29/2013 None Full Exam - General 1995 Cardiovascular auscultation of heart Overall: normal heart sounds 01/29/2013 None Full Exam - General 1995 Cardiovascular auscultation of heart Overall: no murmurs 01/29/2013 None Full Exam - General 1994 Abdomen abdominal exam Overall: no tenderness 01/29/2013 None Full Exam - General 1995 Abdomen abdominal exam Overall: normal bowel sounds 01/29/2013 None Full Exam - General 1994 Abdomen abdominal exam Contour: rounded 01/29/2013 None Full Exam - General 1994 Musculoskeletal digits and nails Overall: no clubbing 01/29/2013 None Full Exam - General 1995 Musculoskeletal digits and nails Overall: digits benign 01/29/2013 None Full Exam - General 1994 Musculoskeletal spine, ribs and pelvis Overall: spine benign 01/29/2013 None Full Exam - General 1994 Musculoskeletal spine, ribs and pelvis Overall: sacroiliac joint benign 01/29/2013 None Full Exam - General 1994 Musculoskeletal spine, ribs and pelvis Overall: good posture 01/29/2013 None Full Exam - General 1994 Musculoskeletal gait and station Overall: normal gait 01/29/2013 None Full Exam - General 1994 Musculoskeletal gait and station Overall: normal station 01/29/2013 None Full Exam - General 1994 Neurologic gait Overall: no ataxia, no unsteadiness 01/29/2013 None Full Exam - General 1994 Psychiatric orientation/consciousness Overall: oriented to person, place and time 01/29/2013 None Full Exam - General 1994 Psychiatric mood and affect Overall: normal mood and affect 01/29/2013 None Full Exam - General 1994 Constitutional general appearance Overall: well developed 12/25/2012 None Full Exam - General 1994 Constitutional general appearance Overall: in no acute distress 12/25/2012 None Full Exam - General 1994 Constitutional general appearance Overall: well nourished 12/25/2012 None Full Exam - General 1994 Eyes pupils and irises Overall: pupils equal, round, reactive to light and accomodation 12/25/2012 None Full Exam - General 1995 Ears/Nose/Throat otoscopic exam Overall: external auditory canals clear 12/25/2012 None Full Exam - General 1995 Ears/Nose/Throat otoscopic exam Overall: tympanic membranes clear 12/25/2012 None Full Exam - General 1995 Ears/Nose/Throat oral cavity/pharynx/larynx Overall: oral mucosa clear 12/25/2012 None Full Exam - General 1995 Ears/Nose/Throat oral cavity/pharynx/larynx Overall: oropharyngeal mucosa clear 12/25/2012 None Full Exam - General 1995 Ears/Nose/Throat oral cavity/pharynx/larynx Overall: no masses 12/25/2012 None Full Exam - General 1994 Respiratory auscultation Overall: breath sounds clear bilaterally 12/25/2012 None Full Exam - General 1994 Respiratory respiratory effort/rhythm Overall: no retractions 12/25/2012 None Full Exam - General 1994 Respiratory respiratory effort/rhythm Overall: normal rate 12/25/2012 None Full Exam - General 1994 Cardiovascular auscultation of heart Overall: regular rate 12/25/2012 None Full Exam - General 1994 Cardiovascular auscultation of heart Overall: normal heart sounds 12/25/2012 None Full Exam - General 1994 Cardiovascular auscultation of heart Overall: no murmurs 12/25/2012 None Full Exam - General 1994 Abdomen abdominal exam Overall: no tenderness 12/25/2012 None Full Exam - General 1994 Abdomen abdominal exam Overall: normal bowel sounds 12/25/2012 None Full Exam - General 1994 Abdomen abdominal exam Contour: rounded 12/25/2012 None Full Exam - General 1994 Musculoskeletal digits and nails Overall: no clubbing 12/25/2012 None Full Exam - General 1994 Musculoskeletal digits and nails Overall: digits benign 12/25/2012 None Full Exam - General 1994 Musculoskeletal spine, ribs and pelvis Overall: spine benign 12/25/2012 None Full Exam - General 1994 Musculoskeletal spine, ribs and pelvis Overall: sacroiliac joint benign 12/25/2012 None Full Exam - General 1994 Musculoskeletal spine, ribs and pelvis Overall: good posture 12/25/2012 None Full Exam - General 1994 Musculoskeletal gait and station Overall: normal gait 12/25/2012 None Full Exam - General 1994 Musculoskeletal gait and station Overall: normal station 12/25/2012 None Full Exam - General 1995 Neurologic gait Overall: no ataxia, no unsteadiness 12/25/2012 None Full Exam - General 1994 Psychiatric orientation/consciousness Overall: oriented to person, place and time 12/25/2012 None Full Exam - General 1994 Psychiatric mood and affect Overall: normal mood and affect 12/25/2012 None Full Exam - General 1995 Constitutional general appearance Overall: well developed 10/01/2012 None Full Exam - General 1994 Constitutional general appearance Overall: in no acute distress 10/01/2012 None Full Exam - General 1995 Constitutional general appearance Overall: well nourished 10/01/2012 None Full Exam - General 1994 Eyes pupils and irises Overall: pupils equal, round, reactive to light and accomodation 10/01/2012 None Full Exam - General 1995 Ears/Nose/Throat otoscopic exam Overall: external auditory canals clear 10/01/2012 None Full Exam - General 1995 Ears/Nose/Throat otoscopic exam Overall: tympanic membranes clear 10/01/2012 None Full Exam - General 1995 Ears/Nose/Throat oral cavity/pharynx/larynx Overall: oral mucosa clear 10/01/2012 None Full Exam - General 1995 Ears/Nose/Throat oral cavity/pharynx/larynx Overall: oropharyngeal mucosa clear 10/01/2012 None Full Exam - General 1995 Ears/Nose/Throat oral cavity/pharynx/larynx Overall: no masses 10/01/2012 None Full Exam - General 1994 Respiratory auscultation Overall: breath sounds clear bilaterally 10/01/2012 None Full Exam - General 1994 Respiratory respiratory effort/rhythm Overall: no retractions 10/01/2012 None Full Exam - General 1994 Respiratory respiratory effort/rhythm Overall: normal rate 10/01/2012 None Full Exam - General 1994 Cardiovascular auscultation of heart Overall: regular rate 10/01/2012 None Full Exam - General 1994 Cardiovascular auscultation of heart Overall: normal heart sounds 10/01/2012 None Full Exam - General 1994 Cardiovascular auscultation of heart Overall: no murmurs 10/01/2012 None Full Exam - General 1994 Abdomen abdominal exam Overall: no tenderness 10/01/2012 None Full Exam - General 1994 Abdomen abdominal exam Overall: normal bowel sounds 10/01/2012 None Full Exam - General 1994 Abdomen abdominal exam Contour: rounded 10/01/2012 None Full Exam - General 1994 Musculoskeletal digits and nails Overall: no clubbing 10/01/2012 None Full Exam - General 1995 Musculoskeletal digits and nails Overall: digits benign 10/01/2012 None Full Exam - General 1995 Musculoskeletal spine, ribs and pelvis Overall: spine benign 10/01/2012 None Full Exam - General 1995 Musculoskeletal spine, ribs and pelvis Overall: sacroiliac joint benign 10/01/2012 None Full Exam - General 1995 Musculoskeletal spine, ribs and pelvis Overall: good posture 10/01/2012 None Full Exam - General 1995 Musculoskeletal gait and station Overall: normal gait 10/01/2012 None Full Exam - General 1995 Musculoskeletal gait and station Overall: normal station 10/01/2012 None Full Exam - General 1995 Neurologic gait Overall: no ataxia, no unsteadiness 10/01/2012 None Full Exam - General 1995 Psychiatric orientation/consciousness Overall: oriented to person, place and time 10/01/2012 None Full Exam - General 1995 Psychiatric mood and affect Overall: normal mood and affect 10/01/2012 None Full Exam - General 1995 Respiratory auscultation Lower lung field: diminished 06/29/2012 None Full Exam - General 1995 Respiratory respiratory effort/rhythm Overall: no retractions 06/29/2012 None Full Exam - General 1995 Respiratory respiratory effort/rhythm Overall: normal rate 06/29/2012 None Full Exam - General 1995 Cardiovascular auscultation of heart Overall: regular rate 06/29/2012 None Full Exam - General 1995 Cardiovascular auscultation of heart Overall: normal heart sounds 06/29/2012 None Full Exam - General 1995 Cardiovascular auscultation of heart Overall: no murmurs 06/29/2012 None Full Exam - General 1994 Musculoskeletal digits and nails Overall: no clubbing 06/29/2012 None Full Exam - General 1995 Musculoskeletal digits and nails Overall: digits benign 06/29/2012 None Full Exam - General 1995 Musculoskeletal spine, ribs and pelvis Overall: good posture 06/29/2012 None Full Exam - General 1995 Musculoskeletal gait and station Overall: normal gait 06/29/2012 None Full Exam - General 1995 Musculoskeletal gait and station Overall: normal station 06/29/2012 None Full Exam - General 1994 Psychiatric orientation/consciousness Overall: oriented to person, place and time 06/29/2012 None Full Exam - General 1994 Psychiatric mood and affect Overall: normal mood and affect 06/29/2012 None Full Exam - General 1994 Respiratory auscultation Upper lung field: a normal exam 06/29/2012 None Full Exam - General 1994 Constitutional general appearance Overall: well developed 06/29/2012 None Full Exam - General 1994 Constitutional general appearance Overall: in no acute distress 06/29/2012 None Full Exam - General 1994 Constitutional general appearance Overall: well nourished 06/29/2012 None Full Exam - General 1994 Eyes pupils and irises Overall: pupils equal, round, reactive to light and accomodation 06/29/2012 None Full Exam - General 1994 Ears/Nose/Throat otoscopic exam Overall: external auditory canals clear 06/29/2012 None Full Exam - General 1994 Ears/Nose/Throat otoscopic exam Tympanic membrane: erythematous 06/29/2012 None Full Exam - General 1994 Ears/Nose/Throat otoscopic exam Tympanic membrane: bulging 06/29/2012 None Full Exam - General 1994 Ears/Nose/Throat oral cavity/pharynx/larynx Overall: oral mucosa clear 06/29/2012 None Full Exam - General 1994 Ears/Nose/Throat oral cavity/pharynx/larynx Overall: no masses 06/29/2012 None Full Exam - General 1995 Ears/Nose/Throat oral cavity/pharynx/larynx Posterior Pharynx: purulent post nasal drainage 06/29/2012 None Full Exam - General 1994 Constitutional general appearance Overall: well developed 05/28/2012 None Full Exam - General 1994 Constitutional general appearance Overall: in no acute distress 05/28/2012 None Full Exam - General 1994 Constitutional general appearance Overall: well nourished 05/28/2012 None Full Exam - General 1994 Eyes pupils and irises Overall: pupils equal, round, reactive to light and accomodation 05/28/2012 None Full Exam - General 1994 Ears/Nose/Throat otoscopic exam Overall: external auditory canals clear 05/28/2012 None Full Exam - General 1994 Ears/Nose/Throat oral cavity/pharynx/larynx Overall: oral mucosa clear 05/28/2012 None Full Exam - General 1995 Ears/Nose/Throat oral cavity/pharynx/larynx Overall: no masses 05/28/2012 None Full Exam - General 1994 Respiratory respiratory effort/rhythm Overall: no retractions 05/28/2012 None Full Exam - General 1994 Respiratory respiratory effort/rhythm Overall: normal rate 05/28/2012 None Full Exam - General 1994 Cardiovascular auscultation of heart Overall: regular rate 05/28/2012 None Full Exam - General 1995 Cardiovascular auscultation of heart Overall: normal heart sounds 05/28/2012 None Full Exam - General 1995 Cardiovascular auscultation of heart Overall: no murmurs 05/28/2012 None Full Exam - General 1995 Musculoskeletal digits and nails Overall: no clubbing 05/28/2012 None Full Exam - General 1995 Musculoskeletal digits and nails Overall: digits benign 05/28/2012 None Full Exam - General 1994 Musculoskeletal spine, ribs and pelvis Overall: good posture 05/28/2012 None Full Exam - General 1995 Musculoskeletal gait and station Overall: normal gait 05/28/2012 None Full Exam - General 1995 Musculoskeletal gait and station Overall: normal station 05/28/2012 None Full Exam - General 1995 Psychiatric orientation/consciousness Overall: oriented to person, place and time 05/28/2012 None Full Exam - General 1994 Psychiatric mood and affect Overall: normal mood and affect 05/28/2012 None Full Exam - General 1994 Ears/Nose/Throat otoscopic exam Tympanic membrane: erythematous 05/28/2012 None Full Exam - General 1994 Ears/Nose/Throat otoscopic exam Tympanic membrane: bulging 05/28/2012 None Full Exam - General 1994 Ears/Nose/Throat oral cavity/pharynx/larynx Posterior Pharynx: purulent post nasal drainage 05/28/2012 None Full Exam - General 1994 Respiratory auscultation Upper lung field: bronchial 05/28/2012 None Full Exam - General 1994 Respiratory auscultation Upper lung field: rhonchi 05/28/2012 None Full Exam - General 1994 Respiratory auscultation Lower lung field: diminished 05/28/2012 None Full Exam - General 1994 Constitutional general appearance Overall: well nourished 04/02/2012 None Full Exam - General 1994 Constitutional general appearance Overall: well developed 04/02/2012 None Full Exam - General 1994 Constitutional general appearance Overall: in no acute distress 04/02/2012 None Full Exam - General 1994 Eyes pupils and irises Overall: pupils equal, round, reactive to light and accomodation 04/02/2012 None Full Exam - General 1994 Respiratory auscultation Overall: breath sounds clear bilaterally 04/02/2012 None Full Exam - General 1994 Respiratory respiratory effort/rhythm Overall: no retractions 04/02/2012 None Full Exam - General 1994 Respiratory respiratory effort/rhythm Overall: normal rate 04/02/2012 None Full Exam - General 1995 Cardiovascular auscultation of heart Overall: regular rate 04/02/2012 None Full Exam - General 1994 Cardiovascular auscultation of heart Overall: normal heart sounds 04/02/2012 None Full Exam - General 1994 Cardiovascular auscultation of heart Overall: no murmurs 04/02/2012 None Full Exam - General 1995 Abdomen abdominal exam Overall: no tenderness 04/02/2012 None Full Exam - General 1995 Abdomen abdominal exam Overall: normal bowel sounds 04/02/2012 None Full Exam - General 1994 Abdomen abdominal exam Contour: rounded 04/02/2012 None Full Exam - General 1995 Neurologic gait Overall: no ataxia, no unsteadiness 04/02/2012 None Full Exam - General 1995 Psychiatric orientation/consciousness Overall: oriented to person, place and time 04/02/2012 None Full Exam - General 1994 Psychiatric mood and affect Overall: normal mood and affect 04/02/2012 None Full Exam - General 1995 Ears/Nose/Throat otoscopic exam Overall: tympanic membranes clear 04/02/2012 None Full Exam - General 1995 Ears/Nose/Throat otoscopic exam Overall: external auditory canals clear 04/02/2012 None Full Exam - General 1995 Ears/Nose/Throat oral cavity/pharynx/larynx Overall: oropharyngeal mucosa clear 04/02/2012 None Full Exam - General 1995 Ears/Nose/Throat oral cavity/pharynx/larynx Overall: no masses 04/02/2012 None Full Exam - General 1995 Ears/Nose/Throat oral cavity/pharynx/larynx Overall: oral mucosa clear 04/02/2012 None Full Exam - General 1994 Musculoskeletal digits and nails Overall: digits benign 04/02/2012 None Full Exam - General 1994 Musculoskeletal digits and nails Overall: no clubbing 04/02/2012 None Full Exam - General 1994 Musculoskeletal gait and station Overall: normal station 04/02/2012 None Full Exam - General 1994 Musculoskeletal gait and station Overall: normal gait 04/02/2012 None Full Exam - General 1994 Musculoskeletal spine, ribs and pelvis Overall: good posture 04/02/2012 None Full Exam - General 1994 Musculoskeletal spine, ribs and pelvis Overall: sacroiliac joint benign 04/02/2012 None Full Exam - General 1994 Musculoskeletal spine, ribs and pelvis Overall: spine benign 04/02/2012 None Full Exam - ENT Neurologic orientation Overall: oriented to person, place a nd time 01/24/2012 None Full Exam - ENT Lymphatic palpation of lymph nodes Overall: anterior cervical chain benign 01/24/2012 None Full Exam - ENT Lymphatic palpation of lymph nodes Overall: posterior cervical chain benign 01/24/2012 None Full Exam - ENT Cardiovascular auscultation of heart Overall: regular rate 01/24/2012 None Full Exam - ENT Cardiovascular auscultation of heart Overall: normal heart sounds 01/24/2012 None Full Exam - ENT Respiratory auscultation Overall: breath sounds clear bilater ally 01/24/2012 None Full Exam - ENT Face and Head palpation Overall: no sinus tenderness 01/24/2012 None Full Exam - ENT Ears/Nose/Throat otoscopic exam Overall: external auditory canals normal 01/24/2012 None Full Exam - ENT Ears/Nose/Throat otoscopic exam Left tympanic membrane: air-fluid le ingrid 01/24/2012 None Full Exam - ENT Ears/Nose/Throat otoscopic exam Right tympanic membrane: air-fluid level 01/24/2012 None Full Exam - ENT Ears/Nose/Throat oropharynx Overall: oral mucosa clear 01/24/2012 None Full Exam - ENT Constitutional general appearance Overall: well nourished 01/24/2012 None Full Exam - ENT Constitutional general appearance Overall: well developed 01/24/2012 None Full Exam - ENT Constitutional general appearance Overall: in no acute distress 01/24/2012 None Full Exam - ENT Ears/Nose/Throat nasal mucosa, septum, turbinates Drainage: purulent 01/24/2012 None Full Exam - ENT Ears/Nose/Throat nasal mucosa, septum, turbinates Left nasal cavity: erythema 01/24/2012 None Full Exam - ENT Ears/Nose/Throat nasal mucosa, septum, turbinates Right nasal cavity: erythema 01/24/2012 None Full Exam - Cardiology Constitutional general appearance Overall: well nourished 10/03/2011 None Full Exam - Cardiology Constitutional general appearance Overall: well developed 10/03/2011 None Full Exam - Cardiology Constitutional general appearance Overall: in no acute distress 10/03/2011 None Full Exam - Cardiology Eyes conjunctiva/eyelids Overall: conjunctiva clear 10/03/2011 None Full Exam - Cardiology Chest/Breast breast/chest inspection Overall: normal chest shape 10/03/2011 None Full Exam - Cardiology Respiratory respiratory effort/rhythm Overall: no retractions 10/03/2011 None Full Exam - Cardiology Respiratory respiratory effort/rhythm Overall: normal rate 10/03/2011 None Full Exam - Cardiology Respiratory auscultation Overall: breath sounds clear bilaterally 10/03/2011 None Full Exam - Cardiology Cardiovascular auscultation of heart Overall: regular rate 10/03/2011 None Full Exam - Cardiology Cardiovascular auscultation of heart Overall: normal heart sounds 10/03/2011 None Full Exam - Cardiology Cardiovascular extremities Overall: without clubbing, cyanosis, or edema 10/03/2011 None Full Exam - Cardiology Abdomen abdominal exam Overall: no tenderness 10/03/2011 None Full Exam - Cardiology Abdomen abdominal exam Overall: normal bowel sounds 10/03/2011 None Full Exam - Cardiology Extremities digits and nails Overall: no clubbing 10/03/2011 None Full Exam - Cardiology Extremities digits and nails Overall: digits benign 10/03/2011 None Full Exam - Cardiology Psychiatric orientation/consciousness Overall: oriented to person, place and time 10/03/2011 None Full Exam - General 1994 Psychiatric mood and affect Overall: normal mood and affect 05/30/2011 None Full Exam - General 1994 Psychiatric orientation/consciousness Overall: oriented to person, place and time 05/30/2011 None Full Exam - General 1994 Neurologic gait Overall: no ataxia, no unsteadiness 05/30/2011 None Full Exam - General 1994 Abdomen abdominal exam Overall: no tenderness 05/30/2011 None Full Exam - General 1994 Abdomen abdominal exam Overall: normal bowel sounds 05/30/2011 None Full Exam - General 1994 Abdomen abdominal exam Contour: rounded 05/30/2011 None Full Exam - General 1994 Cardiovascular auscultation of heart Overall: regular rate 05/30/2011 None Full Exam - General 1994 Cardiovascular auscultation of heart Overall: normal heart sounds 05/30/2011 None Full Exam - General 1994 Cardiovascular auscultation of heart Overall: no murmurs 05/30/2011 None Full Exam - General 1994 Respiratory auscultation Overall: breath sounds clear bilaterally 05/30/2011 None Full Exam - General 1994 Respiratory respiratory effort/rhythm Overall: normal rate 05/30/2011 None Full Exam - General 1994 Respiratory respiratory effort/rhythm Overall: no retractions 05/30/2011 None Full Exam - General 1994 Constitutional general appearance Overall: well nourished 05/30/2011 None Full Exam - General 1994 Constitutional general appearance Overall: well developed 05/30/2011 None Full Exam - General 1994 Constitutional general appearance Overall: in no acute distress 05/30/2011 None Full Exam - General 1994 Eyes pupils and irises Overall: pupils equal, round, reactive to light and accomodation 05/30/2011 None Exam Name System Name It em Name Status Result Effective Dates Notes Full Exam - General 1994 Constitutional general appearance Overall: well developed 10/25/2016 None Full Exam - General 1994 Constitutional general appearance Overall: in no acute distress 10/25/2016 None Full Exam - General 1994 Constitutional general appearance Overall: well nourished 10/25/2016 None Full Exam - General 1994 Eyes pupils and irises Overall: pupils equal, round, reactive to light and accomodation 10/25/2016 None Full Exam - General 1994 Ears/Nose/Throat otoscopic exam Overall: external auditory canals clear 10/25/2016 None Full Exam - General 1994 Ears/Nose/Throat otoscopic exam Overall: tympanic membranes clear 10/25/2016 None Full Exam - General 1994 Ears/Nose/Throat oral cavity/pharynx/larynx Overall: oral mucosa clear 10/25/2016 None Full Exam - General 1994 Ears/Nose/Throat oral cavity/pharynx/larynx Overall: oropharyngeal mucosa clear 10/25/2016 None Full Exam - General 1994 Ears/Nose/Throat oral cavity/pharynx/larynx Overall: no masses 10/25/2016 None Full Exam - General 1994 Respiratory auscultation Overall: breath sounds clear bilaterally 10/25/2016 None Full Exam - General 1994 Respiratory respiratory effort/rhythm Overall: no retractions 10/25/2016 None Full Exam - General 1994 Respiratory respiratory effort/rhythm Overall: normal rate 10/25/2016 None Full Exam - General 1994 Cardiovascular auscultation of heart Overall: regular rate 10/25/2016 None Full Exam - General 1994 Cardiovascular auscultation of heart Overall: normal heart sounds 10/25/2016 None Full Exam - General 1994 Cardiovascular auscultation of heart Overall: no murmurs 10/25/2016 None Full Exam - General 1994 Abdomen abdominal exam Overall: no tenderness 10/25/2016 None Full Exam - General 1994 Abdomen abdominal exam Overall: normal bowel sounds 10/25/2016 None Full Exam - General 1994 Abdomen abdominal exam Contour: rounded 10/25/2016 None Full Exam - General 1994 Musculoskeletal digits and nails Overall: no clubbing 10/25/2016 None Full Exam - General 1994 Musculoskeletal digits and nails Overall: digits benign 10/25/2016 None Full Exam - General 1994 Musculoskeletal spine, ribs and pelvis Overall: sacroiliac joint benign 10/25/2016 None Full Exam - General 1994 Musculoskeletal spine, ribs and pelvis Posture: lordosis 10/25/2016 None Full Exam - General 1994 Musculoskeletal gait and station Overall: normal gait 10/25/2016 None Full Exam - General 1994 Musculoskeletal gait and station Overall: normal station 10/25/2016 None Full Exam - General 1994 Neurologic gait Overall: no ataxia, no unsteadiness 10/25/2016 None Full Exam - General 1994 Psychiatric orientation/consciousness Overall: oriented to person, place and time 10/25/2016 None Full Exam - General 1994 Psychiatric mood and affect Overall: normal mood and affect 10/25/2016 None Full Exam - General 1994 Constitutional general appearance Overall: well developed 07/27/2016 None Full Exam - General 1994 Constitutional general appearance Overall: in no acute distress 07/27/2016 None Full Exam - General 1994 Constitutional general appearance Overall: well nourished 07/27/2016 None Full Exam - General 1994 Eyes pupils and irises Overall: pupils equal, round, reactive to light and accomodation 07/27/2016 None Full Exam - General 1994 Ears/Nose/Throat otoscopic exam Overall: external auditory canals clear 07/27/2016 None Full Exam - General 1994 Ears/Nose/Throat otoscopic exam Overall: tympanic membranes clear 07/27/2016 None Full Exam - General 1994 Ears/Nose/Throat oral cavity/pharynx/larynx Overall: oral mucosa clear 07/27/2016 None Full Exam - General 1994 Ears/Nose/Throat oral cavity/pharynx/larynx Overall: oropharyngeal mucosa clear 07/27/2016 None Full Exam - General 1994 Ears/Nose/Throat oral cavity/pharynx/larynx Overall: no masses 07/27/2016 None Full Exam - General 1994 Respiratory auscultation Overall: breath sounds clear bilaterally 07/27/2016 None Full Exam - General 1994 Respiratory respiratory effort/rhythm Overall: no retractions 07/27/2016 None Full Exam - General 1994 Respiratory respiratory effort/rhythm Overall: normal rate 07/27/2016 None Full Exam - General 1994 Cardiovascular auscultation of heart Overall: regular rate 07/27/2016 None Full Exam - General 1994 Cardiovascular auscultation of heart Overall: normal heart sounds 07/27/2016 None Full Exam - General 1994 Cardiovascular auscultation of heart Overall: no murmurs 07/27/2016 None Full Exam - General 1994 Abdomen abdominal exam Overall: no tenderness 07/27/2016 None Full Exam - General 1994 Abdomen abdominal exam Overall: normal bowel sounds 07/27/2016 None Full Exam - General 1994 Abdomen abdominal exam Contour: rounded 07/27/2016 None Full Exam - General 1994 Musculoskeletal digits and nails Overall: no clubbing 07/27/2016 None Full Exam - General 1994 Musculoskeletal digits and nails Overall: digits benign 07/27/2016 None Full Exam - General 1994 Musculoskeletal spine, ribs and pelvis Overall: sacroiliac joint benign 07/27/2016 None Full Exam - General 1994 Musculoskeletal spine, ribs and pelvis Posture: lordosis 07/27/2016 None Full Exam - General 1994 Musculoskeletal gait and station Overall: normal gait 07/27/2016 None Full Exam - General 1994 Musculoskeletal gait and station Overall: normal station 07/27/2016 None Full Exam - General 1994 Neurologic gait Overall: no ataxia, no unsteadiness 07/27/2016 None Full Exam - General 1994 Psychiatric orientation/consciousness Overall: oriented to person, place and time 07/27/2016 None Full Exam - General 1994 Psychiatric mood and affect Overall: normal mood and affect 07/27/2016 None Full Exam - General 1994 Constitutional general appearance Overall: well developed 05/26/2016 None Full Exam - General 1994 Constitutional general appearance Overall: in no acute distress 05/26/2016 None Full Exam - General 1994 Constitutional general appearance Overall: well nourished 05/26/2016 None Full Exam - General 1994 Eyes pupils and irises Overall: pupils equal, round, reactive to light and accomodation 05/26/2016 None Full Exam - General 1994 Ears/Nose/Throat otoscopic exam Overall: external auditory canals clear 05/26/2016 None Full Exam - General 1994 Ears/Nose/Throat otoscopic exam Overall: tympanic membranes clear 05/26/2016 None Full Exam - General 1994 Ears/Nose/Throat oral cavity/pharynx/larynx Overall: oral mucosa clear 05/26/2016 None Full Exam - General 1994 Ears/Nose/Throat oral cavity/pharynx/larynx Overall: oropharyngeal mucosa clear 05/26/2016 None Full Exam - General 1994 Ears/Nose/Throat oral cavity/pharynx/larynx Overall: no masses 05/26/2016 None Full Exam - General 1994 Respiratory auscultation Overall: breath sounds clear bilaterally 05/26/2016 None Full Exam - General 1994 Respiratory respiratory effort/rhythm Overall: no retractions 05/26/2016 None Full Exam - General 1994 Respiratory respiratory effort/rhythm Overall: normal rate 05/26/2016 None Full Exam - General 1994 Cardiovascular auscultation of heart Overall: regular rate 05/26/2016 None Full Exam - General 1994 Cardiovascular auscultation of heart Overall: normal heart sounds 05/26/2016 None Full Exam - General 1994 Cardiovascular auscultation of heart Overall: no murmurs 05/26/2016 None Full Exam - General 1994 Abdomen abdominal exam Overall: no tenderness 05/26/2016 None Full Exam - General 1994 Abdomen abdominal exam Overall: normal bowel sounds 05/26/2016 None Full Exam - General 1994 Abdomen abdominal exam Contour: rounded 05/26/2016 None Full Exam - General 1994 Musculoskeletal digits and nails Overall: no clubbing 05/26/2016 None Full Exam - General 1994 Musculoskeletal digits and nails Overall: digits benign 05/26/2016 None Full Exam - General 1994 Musculoskeletal spine, ribs and pelvis Overall: sacroiliac joint benign 05/26/2016 None Full Exam - General 1994 Musculoskeletal spine, ribs and pelvis Posture: lordosis 05/26/2016 None Full Exam - General 1994 Musculoskeletal gait and station Overall: normal gait 05/26/2016 None Full Exam - General 1994 Musculoskeletal gait and station Overall: normal station 05/26/2016 None Full Exam - General 1994 Neurologic gait Overall: no ataxia, no unsteadiness 05/26/2016 None Full Exam - General 1994 Psychiatric orientation/consciousness Overall: oriented to person, place and time 05/26/2016 None Full Exam - General 1994 Psychiatric mood and affect Overall: normal mood and affect 05/26/2016 None Full Exam - General 1994 Constitutional general appearance Overall: well developed 05/12/2016 None Full Exam - General 1994 Constitutional general appearance Overall: in no acute distress 05/12/2016 None Full Exam - General 1994 Constitutional general appearance Overall: well nourished 05/12/2016 None Full Exam - General 1994 Eyes pupils and irises Overall: pupils equal, round, reactive to light and accomodation 05/12/2016 None Full Exam - General 1994 Ears/Nose/Throat otoscopic exam Overall: external auditory canals clear 05/12/2016 None Full Exam - General 1994 Ears/Nose/Throat otoscopic exam Overall: tympanic membranes clear 05/12/2016 None Full Exam - General 1994 Ears/Nose/Throat oral cavity/pharynx/larynx Overall: oral mucosa clear 05/12/2016 None Full Exam - General 1994 Ears/Nose/Throat oral cavity/pharynx/larynx Overall: oropharyngeal mucosa clear 05/12/2016 None Full Exam - General 1994 Ears/Nose/Throat oral cavity/pharynx/larynx Overall: no masses 05/12/2016 None Full Exam - General 1994 Respiratory auscultation Overall: breath sounds clear bilaterally 05/12/2016 None Full Exam - General 1994 Respiratory respiratory effort/rhythm Overall: no retractions 05/12/2016 None Full Exam - General 1994 Respiratory respiratory effort/rhythm Overall: normal rate 05/12/2016 None Full Exam - General 1994 Cardiovascular auscultation of heart Overall: regular rate 05/12/2016 None Full Exam - General 1994 Cardiovascular auscultation of heart Overall: normal heart sounds 05/12/2016 None Full Exam - General 1994 Cardiovascular auscultation of heart Overall: no murmurs 05/12/2016 None Full Exam - General 1994 Abdomen abdominal exam Overall: no tenderness 05/12/2016 None Full Exam - General 1994 Abdomen abdominal exam Overall: normal bowel sounds 05/12/2016 None Full Exam - General 1994 Abdomen abdominal exam Contour: rounded 05/12/2016 None Full Exam - General 1994 Musculoskeletal digits and nails Overall: no clubbing 05/12/2016 None Full Exam - General 1994 Musculoskeletal digits and nails Overall: digits benign 05/12/2016 None Full Exam - General 1994 Musculoskeletal spine, ribs and pelvis Overall: sacroiliac joint benign 05/12/2016 None Full Exam - General 1994 Musculoskeletal spine, ribs and pelvis Posture: lordosis 05/12/2016 None Full Exam - General 1994 Musculoskeletal gait and station Overall: normal gait 05/12/2016 None Full Exam - General 1994 Musculoskeletal gait and station Overall: normal station 05/12/2016 None Full Exam - General 1994 Neurologic gait Overall: no ataxia, no unsteadiness 05/12/2016 None Full Exam - General 1994 Psychiatric orientation/consciousness Overall: oriented to person, place and time 05/12/2016 None Full Exam - General 1994 Psychiatric mood and affect Overall: normal mood and affect 05/12/2016 None Full Exam - General 1994 Constitutional general appearance Overall: well developed 02/23/2016 None Full Exam - General 1994 Constitutional general appearance Overall: in no acute distress 02/23/2016 None Full Exam - General 1994 Constitutional general appearance Overall: well nourished 02/23/2016 None Full Exam - General 1994 Eyes pupils and irises Overall: pupils equal, round, reactive to light and accomodation 02/23/2016 None Full Exam - General 1994 Ears/Nose/Throat otoscopic exam Overall: external auditory canals clear 02/23/2016 None Full Exam - General 1994 Ears/Nose/Throat otoscopic exam Overall: tympanic membranes clear 02/23/2016 None Full Exam - General 1994 Ears/Nose/Throat oral cavity/pharynx/larynx Overall: oral mucosa clear 02/23/2016 None Full Exam - General 1994 Ears/Nose/Throat oral cavity/pharynx/larynx Overall: oropharyngeal mucosa clear 02/23/2016 None Full Exam - General 1994 Ears/Nose/Throat oral cavity/pharynx/larynx Overall: no masses 02/23/2016 None Full Exam - General 1994 Respiratory auscultation Overall: breath sounds clear bilaterally 02/23/2016 None Full Exam - General 1994 Respiratory respiratory effort/rhythm Overall: no retractions 02/23/2016 None Full Exam - General 1994 Respiratory respiratory effort/rhythm Overall: normal rate 02/23/2016 None Full Exam - General 1994 Cardiovascular auscultation of heart Overall: regular rate 02/23/2016 None Full Exam - General 1994 Cardiovascular auscultation of heart Overall: normal heart sounds 02/23/2016 None Full Exam - General 1994 Cardiovascular auscultation of heart Overall: no murmurs 02/23/2016 None Full Exam - General 1994 Abdomen abdominal exam Overall: no tenderness 02/23/2016 None Full Exam - General 1994 Abdomen abdominal exam Overall: normal bowel sounds 02/23/2016 None Full Exam - General 1994 Abdomen abdominal exam Contour: rounded 02/23/2016 None Full Exam - General 1994 Musculoskeletal digits and nails Overall: no clubbing 02/23/2016 None Full Exam - General 1994 Musculoskeletal digits and nails Overall: digits benign 02/23/2016 None Full Exam - General 1994 Musculoskeletal spine, ribs and pelvis Overall: sacroiliac joint benign 02/23/2016 None Full Exam - General 1994 Musculoskeletal gait and station Overall: normal gait 02/23/2016 None Full Exam - General 1994 Musculoskeletal gait and station Overall: normal station 02/23/2016 None Full Exam - General 1994 Neurologic gait Overall: no ataxia, no unsteadiness 02/23/2016 None Full Exam - General 1994 Psychiatric orientation/consciousness Overall: oriented to person, place and time 02/23/2016 None Full Exam - General 1994 Psychiatric mood and affect Overall: normal mood and affect 02/23/2016 None Full Exam - General 1994 Musculoskeletal spine, ribs and pelvis Posture: lordosis 02/23/2016 None Full Exam - General 1994 Constitutional general appearance Overall: well developed 12/10/2015 None Full Exam - General 1994 Constitutional general appearance Overall: in no acute distress 12/10/2015 None Full Exam - General 1994 Constitutional general appearance Overall: well nourished 12/10/2015 None Full Exam - General 1994 Eyes pupils and irises Overall: pupils equal, round, reactive to light and accomodation 12/10/2015 None Full Exam - General 1994 Ears/Nose/Throat otoscopic exam Overall: external auditory canals clear 12/10/2015 None Full Exam - General 1994 Ears/Nose/Throat otoscopic exam Overall: tympanic membranes clear 12/10/2015 None Full Exam - General 1994 Ears/Nose/Throat oral cavity/pharynx/larynx Overall: oral mucosa clear 12/10/2015 None Full Exam - General 1994 Ears/Nose/Throat oral cavity/pharynx/larynx Overall: oropharyngeal mucosa clear 12/10/2015 None Full Exam - General 1994 Ears/Nose/Throat oral cavity/pharynx/larynx Overall: no masses 12/10/2015 None Full Exam - General 1994 Respiratory auscultation Overall: breath sounds clear bilaterally 12/10/2015 None Full Exam - General 1994 Respiratory respiratory effort/rhythm Overall: no retractions 12/10/2015 None Full Exam - General 1994 Respiratory respiratory effort/rhythm Overall: normal rate 12/10/2015 None Full Exam - General 1994 Cardiovascular auscultation of heart Overall: regular rate 12/10/2015 None Full Exam - General 1994 Cardiovascular auscultation of heart Overall: normal heart sounds 12/10/2015 None Full Exam - General 1994 Cardiovascular auscultation of heart Overall: no murmurs 12/10/2015 None Full Exam - General 1994 Abdomen abdominal exam Overall: no tenderness 12/10/2015 None Full Exam - General 1994 Abdomen abdominal exam Overall: normal bowel sounds 12/10/2015 None Full Exam - General 1994 Abdomen abdominal exam Contour: rounded 12/10/2015 None Full Exam - General 1994 Musculoskeletal digits and nails Overall: no clubbing 12/10/2015 None Full Exam - General 1994 Musculoskeletal digits and nails Overall: digits benign 12/10/2015 None Full Exam - General 1994 Musculoskeletal spine, ribs and pelvis Overall: spine benign 12/10/2015 None Full Exam - General 1994 Musculoskeletal spine, ribs and pelvis Overall: sacroiliac joint benign 12/10/2015 None Full Exam - General 1994 Musculoskeletal spine, ribs and pelvis Overall: good posture 12/10/2015 None Full Exam - General 1994 Musculoskeletal gait and station Overall: normal gait 12/10/2015 None Full Exam - General 1994 Musculoskeletal gait and station Overall: normal station 12/10/2015 None Full Exam - General 1994 Neurologic gait Overall: no ataxia, no unsteadiness 12/10/2015 None Full Exam - General 1994 Psychiatric orientation/consciousness Overall: oriented to person, place and time 12/10/2015 None Full Exam - General 1994 Psychiatric mood and affect Overall: normal mood and affect 12/10/2015 None Full Exam - General 1994 Constitutional general appearance Overall: well developed 11/10/2015 None Full Exam - General 1994 Constitutional general appearance Overall: in no acute distress 11/10/2015 None Full Exam - General 1994 Constitutional general appearance Overall: well nourished 11/10/2015 None Full Exam - General 1994 Eyes pupils and irises Overall: pupils equal, round, reactive to light and accomodation 11/10/2015 None Full Exam - General 1994 Ears/Nose/Throat otoscopic exam Overall: external auditory canals clear 11/10/2015 None Full Exam - General 1994 Ears/Nose/Throat otoscopic exam Overall: tympanic membranes clear 11/10/2015 None Full Exam - General 1994 Ears/Nose/Throat oral cavity/pharynx/larynx Overall: oral mucosa clear 11/10/2015 None Full Exam - General 1994 Ears/Nose/Throat oral cavity/pharynx/larynx Overall: oropharyngeal mucosa clear 11/10/2015 None Full Exam - General 1994 Ears/Nose/Throat oral cavity/pharynx/larynx Overall: no masses 11/10/2015 None Full Exam - General 1994 Respiratory auscultation Overall: breath sounds clear bilaterally 11/10/2015 None Full Exam - General 1994 Respiratory respiratory effort/rhythm Overall: no retractions 11/10/2015 None Full Exam - General 1994 Respiratory respiratory effort/rhythm Overall: normal rate 11/10/2015 None Full Exam - General 1994 Cardiovascular auscultation of heart Overall: regular rate 11/10/2015 None Full Exam - General 1994 Cardiovascular auscultation of heart Overall: normal heart sounds 11/10/2015 None Full Exam - General 1994 Cardiovascular auscultation of heart Overall: no murmurs 11/10/2015 None Full Exam - General 1994 Abdomen abdominal exam Overall: no tenderness 11/10/2015 None Full Exam - General 1994 Abdomen abdominal exam Overall: normal bowel sounds 11/10/2015 None Full Exam - General 1994 Abdomen abdominal exam Contour: rounded 11/10/2015 None Full Exam - General 1994 Musculoskeletal digits and nails Overall: no clubbing 11/10/2015 None Full Exam - General 1994 Musculoskeletal digits and nails Overall: digits benign 11/10/2015 None Full Exam - General 1994 Musculoskeletal spine, ribs and pelvis Overall: spine benign 11/10/2015 None Full Exam - General 1994 Musculoskeletal spine, ribs and pelvis Overall: sacroiliac joint benign 11/10/2015 None Full Exam - General 1994 Musculoskeletal spine, ribs and pelvis Overall: good posture 11/10/2015 None Full Exam - General 1994 Musculoskeletal gait and station Overall: normal gait 11/10/2015 None Full Exam - General 1994 Musculoskeletal gait and station Overall: normal station 11/10/2015 None Full Exam - General 1994 Neurologic gait Overall: no ataxia, no unsteadiness 11/10/2015 None Full Exam - General 1994 Psychiatric orientation/consciousness Overall: oriented to person, place and time 11/10/2015 None Full Exam - General 1994 Psychiatric mood and affect Overall: normal mood and affect 11/10/2015 None Full Exam - General 1994 Constitutional general appearance Overall: well developed 08/07/2015 None Full Exam - General 1994 Constitutional general appearance Overall: in no acute distress 08/07/2015 None Full Exam - General 1994 Constitutional general appearance Overall: well nourished 08/07/2015 None Full Exam - General 1994 Eyes pupils and irises Overall: pupils equal, round, reactive to light and accomodation 08/07/2015 None Full Exam - General 1994 Ears/Nose/Throat otoscopic exam Overall: external auditory canals clear 08/07/2015 None Full Exam - General 1994 Ears/Nose/Throat otoscopic exam Overall: tympanic membranes clear 08/07/2015 None Full Exam - General 1994 Ears/Nose/Throat oral cavity/pharynx/larynx Overall: oral mucosa clear 08/07/2015 None Full Exam - General 1994 Ears/Nose/Throat oral cavity/pharynx/larynx Overall: oropharyngeal mucosa clear 08/07/2015 None Full Exam - General 1994 Ears/Nose/Throat oral cavity/pharynx/larynx Overall: no masses 08/07/2015 None Full Exam - General 1994 Respiratory auscultation Overall: breath sounds clear bilaterally 08/07/2015 None Full Exam - General 1994 Respiratory respiratory effort/rhythm Overall: no retractions 08/07/2015 None Full Exam - General 1994 Respiratory respiratory effort/rhythm Overall: normal rate 08/07/2015 None Full Exam - General 1994 Cardiovascular auscultation of heart Overall: regular rate 08/07/2015 None Full Exam - General 1994 Cardiovascular auscultation of heart Overall: normal heart sounds 08/07/2015 None Full Exam - General 1994 Cardiovascular auscultation of heart Overall: no murmurs 08/07/2015 None Full Exam - General 1994 Abdomen abdominal exam Overall: no tenderness 08/07/2015 None Full Exam - General 1994 Abdomen abdominal exam Overall: normal bowel sounds 08/07/2015 None Full Exam - General 1994 Abdomen abdominal exam Contour: rounded 08/07/2015 None Full Exam - General 1994 Musculoskeletal digits and nails Overall: no clubbing 08/07/2015 None Full Exam - General 1994 Musculoskeletal digits and nails Overall: digits benign 08/07/2015 None Full Exam - General 1994 Musculoskeletal spine, ribs and pelvis Overall: spine benign 08/07/2015 None Full Exam - General 1994 Musculoskeletal spine, ribs and pelvis Overall: sacroiliac joint benign 08/07/2015 None Full Exam - General 1994 Musculoskeletal spine, ribs and pelvis Overall: good posture 08/07/2015 None Full Exam - General 1994 Musculoskeletal gait and station Overall: normal gait 08/07/2015 None Full Exam - General 1994 Musculoskeletal gait and station Overall: normal station 08/07/2015 None Full Exam - General 1994 Neurologic gait Overall: no ataxia, no unsteadiness 08/07/2015 None Full Exam - General 1994 Psychiatric orientation/consciousness Overall: oriented to person, place and time 08/07/2015 None Full Exam - General 1994 Psychiatric mood and affect Overall: normal mood and affect 08/07/2015 None Full Exam - General 1994 Constitutional general appearance Overall: well developed 07/07/2015 None Full Exam - General 1994 Constitutional general appearance Overall: in no acute distress 07/07/2015 None Full Exam - General 1994 Constitutional general appearance Overall: well nourished 07/07/2015 None Full Exam - General 1994 Eyes pupils and irises Overall: pupils equal, round, reactive to light and accomodation 07/07/2015 None Full Exam - General 1994 Ears/Nose/Throat otoscopic exam Overall: external auditory canals clear 07/07/2015 None Full Exam - General 1994 Ears/Nose/Throat otoscopic exam Overall: tympanic membranes clear 07/07/2015 None Full Exam - General 1994 Ears/Nose/Throat oral cavity/pharynx/larynx Overall: oral mucosa clear 07/07/2015 None Full Exam - General 1994 Ears/Nose/Throat oral cavity/pharynx/larynx Overall: oropharyngeal mucosa clear 07/07/2015 None Full Exam - General 1994 Ears/Nose/Throat oral cavity/pharynx/larynx Overall: no masses 07/07/2015 None Full Exam - General 1994 Respiratory auscultation Overall: breath sounds clear bilaterally 07/07/2015 None Full Exam - General 1994 Respiratory respiratory effort/rhythm Overall: no retractions 07/07/2015 None Full Exam - General 1994 Respiratory respiratory effort/rhythm Overall: normal rate 07/07/2015 None Full Exam - General 1994 Cardiovascular auscultation of heart Overall: regular rate 07/07/2015 None Full Exam - General 1994 Cardiovascular auscultation of heart Overall: normal heart sounds 07/07/2015 None Full Exam - General 1994 Cardiovascular auscultation of heart Overall: no murmurs 07/07/2015 None Full Exam - General 1994 Abdomen abdominal exam Overall: no tenderness 07/07/2015 None Full Exam - General 1994 Abdomen abdominal exam Overall: normal bowel sounds 07/07/2015 None Full Exam - General 1994 Abdomen abdominal exam Contour: rounded 07/07/2015 None Full Exam - General 1994 Musculoskeletal digits and nails Overall: no clubbing 07/07/2015 None Full Exam - General 1994 Musculoskeletal digits and nails Overall: digits benign 07/07/2015 None Full Exam - General 1994 Musculoskeletal spine, ribs and pelvis Overall: spine benign 07/07/2015 None Full Exam - General 1994 Musculoskeletal spine, ribs and pelvis Overall: sacroiliac joint benign 07/07/2015 None Full Exam - General 1994 Musculoskeletal spine, ribs and pelvis Overall: good posture 07/07/2015 None Full Exam - General 1994 Musculoskeletal gait and station Overall: normal gait 07/07/2015 None Full Exam - General 1994 Musculoskeletal gait and station Overall: normal station 07/07/2015 None Full Exam - General 1994 Neurologic gait Overall: no ataxia, no unsteadiness 07/07/2015 None Full Exam - General 1994 Psychiatric orientation/consciousness Overall: oriented to person, place and time 07/07/2015 None Full Exam - General 1994 Psychiatric mood and affect Overall: normal mood and affect 07/07/2015 None Full Exam - General 1994 Constitutional general appearance Overall: well developed 04/02/2015 None Full Exam - General 1994 Constitutional general appearance Overall: in no acute distress 04/02/2015 None Full Exam - General 1994 Constitutional general appearance Overall: well nourished 04/02/2015 None Full Exam - General 1994 Constitutional general appearance Hygiene/Attention to Grooming: good hygiene 04/02/2015 None Full Exam - General 1994 Eyes pupils and irises Overall: pupils equal, round, reactive to light and accomodation 04/02/2015 None Full Exam - General 1994 Ears/Nose/Throat otoscopic exam Overall: external auditory canals clear 04/02/2015 None Full Exam - General 1994 Ears/Nose/Throat otoscopic exam Overall: tympanic membranes clear 04/02/2015 None Full Exam - General 1994 Ears/Nose/Throat oral cavity/pharynx/larynx Overall: oral mucosa clear 04/02/2015 None Full Exam - General 1994 Ears/Nose/Throat oral cavity/pharynx/larynx Overall: oropharyngeal mucosa clear 04/02/2015 None Full Exam - General 1994 Ears/Nose/Throat oral cavity/pharynx/larynx Overall: no masses 04/02/2015 None Full Exam - General 1994 Respiratory auscultation Overall: breath sounds clear bilaterally 04/02/2015 None Full Exam - General 1994 Respiratory respiratory effort/rhythm Overall: no retractions 04/02/2015 None Full Exam - General 1994 Respiratory respiratory effort/rhythm Overall: normal rate 04/02/2015 None Full Exam - General 1994 Cardiovascular auscultation of heart Overall: regular rate 04/02/2015 None Full Exam - General 1994 Cardiovascular auscultation of heart Overall: normal heart sounds 04/02/2015 None Full Exam - General 1994 Abdomen abdominal exam Overall: no tenderness 04/02/2015 None Full Exam - General 1994 Abdomen abdominal exam Overall: normal bowel sounds 04/02/2015 None Full Exam - General 1994 Abdomen abdominal exam Contour: rounded 04/02/2015 None Full Exam - General 1994 Neurologic gait Overall: no ataxia, no unsteadiness 04/02/2015 None Full Exam - General 1994 Psychiatric orientation/consciousness Overall: oriented to person, place and time 04/02/2015 None Full Exam - General 1994 Psychiatric mood and affect Overall: normal mood and affect 04/02/2015 None Full Exam - General 1994 Constitutional general appearance Overall: well developed 12/23/2014 None Full Exam - General 1994 Constitutional general appearance Overall: in no acute distress 12/23/2014 None Full Exam - General 1994 Constitutional general appearance Overall: well nourished 12/23/2014 None Full Exam - General 1994 Eyes pupils and irises Overall: pupils equal, round, reactive to light and accomodation 12/23/2014 None Full Exam - General 1994 Ears/Nose/Throat otoscopic exam Overall: external auditory canals clear 12/23/2014 None Full Exam - General 1994 Ears/Nose/Throat otoscopic exam Overall: tympanic membranes clear 12/23/2014 None Full Exam - General 1994 Ears/Nose/Throat oral cavity/pharynx/larynx Overall: oral mucosa clear 12/23/2014 None Full Exam - General 1994 Ears/Nose/Throat oral cavity/pharynx/larynx Overall: oropharyngeal mucosa clear 12/23/2014 None Full Exam - General 1994 Ears/Nose/Throat oral cavity/pharynx/larynx Overall: no masses 12/23/2014 None Full Exam - General 1994 Respiratory auscultation Overall: breath sounds clear bilaterally 12/23/2014 None Full Exam - General 1994 Respiratory respiratory effort/rhythm Overall: no retractions 12/23/2014 None Full Exam - General 1994 Respiratory respiratory effort/rhythm Overall: normal rate 12/23/2014 None Full Exam - General 1994 Cardiovascular auscultation of heart Overall: regular rate 12/23/2014 None Full Exam - General 1994 Cardiovascular auscultation of heart Overall: normal heart sounds 12/23/2014 None Full Exam - General 1994 Cardiovascular auscultation of heart Overall: no murmurs 12/23/2014 None Full Exam - General 1994 Abdomen abdominal exam Overall: no tenderness 12/23/2014 None Full Exam - General 1994 Abdomen abdominal exam Overall: normal bowel sounds 12/23/2014 None Full Exam - General 1994 Abdomen abdominal exam Contour: rounded 12/23/2014 None Full Exam - General 1994 Musculoskeletal digits and nails Overall: no clubbing 12/23/2014 None Full Exam - General 1994 Musculoskeletal digits and nails Overall: digits benign 12/23/2014 None Full Exam - General 1994 Musculoskeletal spine, ribs and pelvis Overall: spine benign 12/23/2014 None Full Exam - General 1994 Musculoskeletal spine, ribs and pelvis Overall: sacroiliac joint benign 12/23/2014 None Full Exam - General 1994 Musculoskeletal spine, ribs and pelvis Overall: good posture 12/23/2014 None Full Exam - General 1994 Musculoskeletal gait and station Overall: normal gait 12/23/2014 None Full Exam - General 1994 Musculoskeletal gait and station Overall: normal station 12/23/2014 None Full Exam - General 1994 Neurologic gait Overall: no ataxia, no unsteadiness 12/23/2014 None Full Exam - General 1994 Psychiatric orientation/consciousness Overall: oriented to person, place and time 12/23/2014 None Full Exam - General 1994 Psychiatric mood and affect Overall: normal mood and affect 12/23/2014 None Full Exam - General 1994 Constitutional general appearance Overall: well developed 10/22/2014 None Full Exam - General 1994 Constitutional general appearance Overall: in no acute distress 10/22/2014 None Full Exam - General 1994 Constitutional general appearance Overall: well nourished 10/22/2014 None Full Exam - General 1994 Eyes pupils and irises Overall: pupils equal, round, reactive to light and accomodation 10/22/2014 None Full Exam - General 1994 Ears/Nose/Throat otoscopic exam Overall: external auditory canals clear 10/22/2014 None Full Exam - General 1994 Ears/Nose/Throat otoscopic exam Overall: tympanic membranes clear 10/22/2014 None Full Exam - General 1994 Ears/Nose/Throat oral cavity/pharynx/larynx Overall: oral mucosa clear 10/22/2014 None Full Exam - General 1994 Ears/Nose/Throat oral cavity/pharynx/larynx Overall: oropharyngeal mucosa clear 10/22/2014 None Full Exam - General 1994 Ears/Nose/Throat oral cavity/pharynx/larynx Overall: no masses 10/22/2014 None Full Exam - General 1994 Respiratory auscultation Overall: breath sounds clear bilaterally 10/22/2014 None Full Exam - General 1994 Respiratory respiratory effort/rhythm Overall: no retractions 10/22/2014 None Full Exam - General 1994 Respiratory respiratory effort/rhythm Overall: normal rate 10/22/2014 None Full Exam - General 1994 Cardiovascular auscultation of heart Overall: regular rate 10/22/2014 None Full Exam - General 1994 Cardiovascular auscultation of heart Overall: normal heart sounds 10/22/2014 None Full Exam - General 1994 Cardiovascular auscultation of heart Overall: no murmurs 10/22/2014 None Full Exam - General 1994 Abdomen abdominal exam Overall: no tenderness 10/22/2014 None Full Exam - General 1994 Abdomen abdominal exam Overall: normal bowel sounds 10/22/2014 None Full Exam - General 1994 Abdomen abdominal exam Contour: rounded 10/22/2014 None Full Exam - General 1994 Musculoskeletal digits and nails Overall: no clubbing 10/22/2014 None Full Exam - General 1994 Musculoskeletal digits and nails Overall: digits benign 10/22/2014 None Full Exam - General 1994 Musculoskeletal spine, ribs and pelvis Overall: spine benign 10/22/2014 None Full Exam - General 1994 Musculoskeletal spine, ribs and pelvis Overall: sacroiliac joint benign 10/22/2014 None Full Exam - General 1994 Musculoskeletal spine, ribs and pelvis Overall: good posture 10/22/2014 None Full Exam - General 1994 Musculoskeletal gait and station Overall: normal gait 10/22/2014 None Full Exam - General 1994 Musculoskeletal gait and station Overall: normal station 10/22/2014 None Full Exam - General 1994 Neurologic gait Overall: no ataxia, no unsteadiness 10/22/2014 None Full Exam - General 1994 Psychiatric orientation/consciousness Overall: oriented to person, place and time 10/22/2014 None Full Exam - General 1994 Psychiatric mood and affect Overall: normal mood and affect 10/22/2014 None Full Exam - General 1994 Constitutional general appearance Overall: well developed 09/26/2014 None Full Exam - General 1994 Constitutional general appearance Overall: in no acute distress 09/26/2014 None Full Exam - General 1994 Constitutional general appearance Overall: well nourished 09/26/2014 None Full Exam - General 1994 Eyes pupils and irises Overall: pupils equal, round, reactive to light and accomodation 09/26/2014 None Full Exam - General 1994 Ears/Nose/Throat oral cavity/pharynx/larynx Overall: oral mucosa clear 09/26/2014 None Full Exam - General 1994 Ears/Nose/Throat oral cavity/pharynx/larynx Overall: no masses 09/26/2014 None Full Exam - General 1994 Respiratory respiratory effort/rhythm Overall: no retractions 09/26/2014 None Full Exam - General 1994 Respiratory respiratory effort/rhythm Overall: normal rate 09/26/2014 None Full Exam - General 1994 Cardiovascular auscultation of heart Overall: regular rate 09/26/2014 None Full Exam - General 1994 Cardiovascular auscultation of heart Overall: normal heart sounds 09/26/2014 None Full Exam - General 1994 Cardiovascular auscultation of heart Overall: no murmurs 09/26/2014 None Full Exam - General 1994 Musculoskeletal digits and nails Overall: no clubbing 09/26/2014 None Full Exam - General 1994 Musculoskeletal digits and nails Overall: digits benign 09/26/2014 None Full Exam - General 1994 Musculoskeletal spine, ribs and pelvis Overall: good posture 09/26/2014 None Full Exam - General 1994 Musculoskeletal gait and station Overall: normal gait 09/26/2014 None Full Exam - General 1994 Musculoskeletal gait and station Overall: normal station 09/26/2014 None Full Exam - General 1994 Psychiatric orientation/consciousness Overall: oriented to person, place and time 09/26/2014 None Full Exam - General 1994 Psychiatric mood and affect Overall: normal mood and affect 09/26/2014 None Full Exam - General 1994 Ears/Nose/Throat otoscopic exam Overall: tympanic membranes clear 09/26/2014 None Full Exam - General 1994 Ears/Nose/Throat otoscopic exam Overall: external auditory canals clear 09/26/2014 None Full Exam - General 1994 Respiratory auscultation Overall: breath sounds clear bilaterally 09/26/2014 None Full Exam - General 1994 Lymphatic neck nodes Overall: anterior cervical chain benign 09/26/2014 None Full Exam - General 1994 Lymphatic neck nodes Overall: posterior cervical chain benign 09/26/2014 None Full Exam - General 1994 Constitutional general appearance Overall: well developed 07/01/2014 None Full Exam - General 1994 Constitutional general appearance Overall: in no acute distress 07/01/2014 None Full Exam - General 1994 Constitutional general appearance Overall: well nourished 07/01/2014 None Full Exam - General 1994 Eyes pupils and irises Overall: pupils equal, round, reactive to light and accomodation 07/01/2014 None Full Exam - General 1994 Ears/Nose/Throat otoscopic exam Overall: external auditory canals clear 07/01/2014 None Full Exam - General 1994 Ears/Nose/Throat otoscopic exam Overall: tympanic membranes clear 07/01/2014 None Full Exam - General 1994 Ears/Nose/Throat oral cavity/pharynx/larynx Overall: oral mucosa clear 07/01/2014 None Full Exam - General 1994 Ears/Nose/Throat oral cavity/pharynx/larynx Overall: oropharyngeal mucosa clear 07/01/2014 None Full Exam - General 1994 Ears/Nose/Throat oral cavity/pharynx/larynx Overall: no masses 07/01/2014 None Full Exam - General 1994 Respiratory auscultation Overall: breath sounds clear bilaterally 07/01/2014 None Full Exam - General 1994 Respiratory respiratory effort/rhythm Overall: no retractions 07/01/2014 None Full Exam - General 1994 Respiratory respiratory effort/rhythm Overall: normal rate 07/01/2014 None Full Exam - General 1994 Cardiovascular auscultation of heart Overall: regular rate 07/01/2014 None Full Exam - General 1994 Cardiovascular auscultation of heart Overall: normal heart sounds 07/01/2014 None Full Exam - General 1994 Cardiovascular auscultation of heart Overall: no murmurs 07/01/2014 None Full Exam - General 1994 Abdomen abdominal exam Overall: no tenderness 07/01/2014 None Full Exam - General 1994 Abdomen abdominal exam Overall: normal bowel sounds 07/01/2014 None Full Exam - General 1994 Abdomen abdominal exam Contour: rounded 07/01/2014 None Full Exam - General 1994 Musculoskeletal digits and nails Overall: no clubbing 07/01/2014 None Full Exam - General 1994 Musculoskeletal digits and nails Overall: digits benign 07/01/2014 None Full Exam - General 1994 Musculoskeletal spine, ribs and pelvis Overall: spine benign 07/01/2014 None Full Exam - General 1994 Musculoskeletal spine, ribs and pelvis Overall: sacroiliac joint benign 07/01/2014 None Full Exam - General 1994 Musculoskeletal spine, ribs and pelvis Overall: good posture 07/01/2014 None Full Exam - General 1994 Musculoskeletal gait and station Overall: normal gait 07/01/2014 None Full Exam - General 1994 Musculoskeletal gait and station Overall: normal station 07/01/2014 None Full Exam - General 1994 Neurologic gait Overall: no ataxia, no unsteadiness 07/01/2014 None Full Exam - General 1994 Psychiatric orientation/consciousness Overall: oriented to person, place and time 07/01/2014 None Full Exam - General 1994 Psychiatric mood and affect Overall: normal mood and affect 07/01/2014 None Full Exam - General 1994 Constitutional general appearance Overall: well developed 06/09/2014 None Full Exam - General 1994 Constitutional general appearance Overall: in no acute distress 06/09/2014 None Full Exam - General 1994 Constitutional general appearance Overall: well nourished 06/09/2014 None Full Exam - General 1994 Eyes pupils and irises Overall: pupils equal, round, reactive to light and accomodation 06/09/2014 None Full Exam - General 1994 Ears/Nose/Throat otoscopic exam Overall: external auditory canals clear 06/09/2014 None Full Exam - General 1994 Ears/Nose/Throat otoscopic exam Overall: tympanic membranes clear 06/09/2014 None Full Exam - General 1994 Ears/Nose/Throat oral cavity/pharynx/larynx Overall: oral mucosa clear 06/09/2014 None Full Exam - General 1994 Ears/Nose/Throat oral cavity/pharynx/larynx Overall: oropharyngeal mucosa clear 06/09/2014 None Full Exam - General 1994 Ears/Nose/Throat oral cavity/pharynx/larynx Overall: no masses 06/09/2014 None Full Exam - General 1994 Respiratory auscultation Overall: breath sounds clear bilaterally 06/09/2014 None Full Exam - General 1994 Respiratory respiratory effort/rhythm Overall: no retractions 06/09/2014 None Full Exam - General 1994 Respiratory respiratory effort/rhythm Overall: normal rate 06/09/2014 None Full Exam - General 1994 Cardiovascular auscultation of heart Overall: regular rate 06/09/2014 None Full Exam - General 1994 Cardiovascular auscultation of heart Overall: normal heart sounds 06/09/2014 None Full Exam - General 1994 Cardiovascular auscultation of heart Overall: no murmurs 06/09/2014 None Full Exam - General 1994 Abdomen abdominal exam Overall: no tenderness 06/09/2014 None Full Exam - General 1994 Abdomen abdominal exam Overall: normal bowel sounds 06/09/2014 None Full Exam - General 1994 Abdomen abdominal exam Contour: rounded 06/09/2014 None Full Exam - General 1994 Musculoskeletal digits and nails Overall: no clubbing 06/09/2014 None Full Exam - General 1994 Musculoskeletal digits and nails Overall: digits benign 06/09/2014 None Full Exam - General 1994 Musculoskeletal spine, ribs and pelvis Overall: spine benign 06/09/2014 None Full Exam - General 1994 Musculoskeletal spine, ribs and pelvis Overall: sacroiliac joint benign 06/09/2014 None Full Exam - General 1994 Musculoskeletal spine, ribs and pelvis Overall: good posture 06/09/2014 None Full Exam - General 1994 Musculoskeletal gait and station Overall: normal gait 06/09/2014 None Full Exam - General 1994 Musculoskeletal gait and station Overall: normal station 06/09/2014 None Full Exam - General 1994 Neurologic gait Overall: no ataxia, no unsteadiness 06/09/2014 None Full Exam - General 1994 Psychiatric orientation/consciousness Overall: oriented to person, place and time 06/09/2014 None Full Exam - General 1994 Psychiatric mood and affect Overall: normal mood and affect 06/09/2014 None Full Exam - General 1994 Constitutional general appearance Overall: well developed 05/07/2014 None Full Exam - General 1994 Constitutional general appearance Overall: in no acute distress 05/07/2014 None Full Exam - General 1994 Constitutional general appearance Overall: well nourished 05/07/2014 None Full Exam - General 1994 Eyes pupils and irises Overall: pupils equal, round, reactive to light and accomodation 05/07/2014 None Full Exam - General 1994 Ears/Nose/Throat otoscopic exam Overall: external auditory canals clear 05/07/2014 None Full Exam - General 1994 Ears/Nose/Throat otoscopic exam Overall: tympanic membranes clear 05/07/2014 None Full Exam - General 1994 Ears/Nose/Throat oral cavity/pharynx/larynx Overall: oral mucosa clear 05/07/2014 None Full Exam - General 1994 Ears/Nose/Throat oral cavity/pharynx/larynx Overall: oropharyngeal mucosa clear 05/07/2014 None Full Exam - General 1994 Ears/Nose/Throat oral cavity/pharynx/larynx Overall: no masses 05/07/2014 None Full Exam - General 1994 Respiratory auscultation Overall: breath sounds clear bilaterally 05/07/2014 None Full Exam - General 1994 Respiratory respiratory effort/rhythm Overall: no retractions 05/07/2014 None Full Exam - General 1994 Respiratory respiratory effort/rhythm Overall: normal rate 05/07/2014 None Full Exam - General 1994 Cardiovascular auscultation of heart Overall: regular rate 05/07/2014 None Full Exam - General 1994 Cardiovascular auscultation of heart Overall: normal heart sounds 05/07/2014 None Full Exam - General 1994 Cardiovascular auscultation of heart Overall: no murmurs 05/07/2014 None Full Exam - General 1994 Abdomen abdominal exam Overall: no tenderness 05/07/2014 None Full Exam - General 1994 Abdomen abdominal exam Overall: normal bowel sounds 05/07/2014 None Full Exam - General 1994 Abdomen abdominal exam Contour: rounded 05/07/2014 None Full Exam - General 1994 Musculoskeletal digits and nails Overall: no clubbing 05/07/2014 None Full Exam - General 1994 Musculoskeletal digits and nails Overall: digits benign 05/07/2014 None Full Exam - General 1994 Musculoskeletal spine, ribs and pelvis Overall: spine benign 05/07/2014 None Full Exam - General 1994 Musculoskeletal spine, ribs and pelvis Overall: sacroiliac joint benign 05/07/2014 None Full Exam - General 1994 Musculoskeletal spine, ribs and pelvis Overall: good posture 05/07/2014 None Full Exam - General 1994 Musculoskeletal gait and station Overall: normal gait 05/07/2014 None Full Exam - General 1994 Musculoskeletal gait and station Overall: normal station 05/07/2014 None Full Exam - General 1994 Neurologic gait Overall: no ataxia, no unsteadiness 05/07/2014 None Full Exam - General 1994 Psychiatric orientation/consciousness Overall: oriented to person, place and time 05/07/2014 None Full Exam - General 1994 Psychiatric mood and affect Overall: normal mood and affect 05/07/2014 None Full Exam - General 1994 Constitutional general appearance Overall: well developed 04/21/2014 None Full Exam - General 1994 Constitutional general appearance Overall: well nourished 04/21/2014 None Full Exam - General 1994 Eyes pupils and irises Overall: pupils equal, round, reactive to light and accomodation 04/21/2014 None Full Exam - General 1994 Ears/Nose/Throat otoscopic exam Overall: external auditory canals clear 04/21/2014 None Full Exam - General 1994 Ears/Nose/Throat otoscopic exam Overall: tympanic membranes clear 04/21/2014 None Full Exam - General 1994 Ears/Nose/Throat oral cavity/pharynx/larynx Overall: oropharyngeal mucosa clear 04/21/2014 None Full Exam - General 1994 Ears/Nose/Throat oral cavity/pharynx/larynx Overall: no masses 04/21/2014 None Full Exam - General 1994 Respiratory auscultation Overall: breath sounds clear bilaterally 04/21/2014 None Full Exam - General 1994 Respiratory respiratory effort/rhythm Overall: no retractions 04/21/2014 None Full Exam - General 1994 Respiratory respiratory effort/rhythm Overall: normal rate 04/21/2014 None Full Exam - General 1994 Cardiovascular auscultation of heart Overall: regular rate 04/21/2014 None Full Exam - General 1994 Cardiovascular auscultation of heart Overall: normal heart sounds 04/21/2014 None Full Exam - General 1994 Cardiovascular auscultation of heart Overall: no murmurs 04/21/2014 None Full Exam - General 1994 Abdomen abdominal exam Overall: no tenderness 04/21/2014 None Full Exam - General 1994 Abdomen abdominal exam Overall: normal bowel sounds 04/21/2014 None Full Exam - General 1994 Abdomen abdominal exam Contour: rounded 04/21/2014 None Full Exam - General 1994 Musculoskeletal digits and nails Overall: no clubbing 04/21/2014 None Full Exam - General 1994 Musculoskeletal digits and nails Overall: digits benign 04/21/2014 None Full Exam - General 1994 Musculoskeletal spine, ribs and pelvis Overall: spine benign 04/21/2014 None Full Exam - General 1994 Musculoskeletal spine, ribs and pelvis Overall: sacroiliac joint benign 04/21/2014 None Full Exam - General 1994 Musculoskeletal spine, ribs and pelvis Overall: good posture 04/21/2014 None Full Exam - General 1994 Musculoskeletal gait and station Overall: normal gait 04/21/2014 None Full Exam - General 1994 Musculoskeletal gait and station Overall: normal station 04/21/2014 None Full Exam - General 1994 Neurologic gait Overall: no ataxia, no unsteadiness 04/21/2014 None Full Exam - General 1994 Psychiatric orientation/consciousness Overall: oriented to person, place and time 04/21/2014 None Full Exam - General 1994 Psychiatric mood and affect Overall: normal mood and affect 04/21/2014 None Full Exam - General 1994 Constitutional general appearance Hygiene/Attention to Grooming: good hygiene 04/21/2014 None Full Exam - General 1994 Constitutional general appearance Evidence of Distress: mild distress 04/21/2014 - pt unsteady with walking - Full Exam - General 1994 Ears/Nose/Throat oral cavity/pharynx/larynx Overall: oral mucosa clear 04/21/2014 but dry Full Exam - General 1994 Cardiovascular extremities Edema present: pitting 04/21/2014 None Full Exam - General 1994 Cardiovascular extremities Edema present: severity 1+ - 4+: 2+ 04/21/2014 None Full Exam - General 1994 Cardiovascular extremities Edema present: bilateral 04/21/2014 None Full Exam - General 1994 Integument inspection of skin Overall: few scattered moles, no gross abnormalities 04/21/2014 None Full Exam - General 1994 Constitutional general appearance Overall: well developed 02/14/2014 None Full Exam - General 1994 Constitutional general appearance Overall: in no acute distress 02/14/2014 None Full Exam - General 1994 Constitutional general appearance Overall: well nourished 02/14/2014 None Full Exam - General 1994 Eyes pupils and irises Overall: pupils equal, round, reactive to light and accomodation 02/14/2014 None Full Exam - General 1994 Ears/Nose/Throat otoscopic exam Overall: external auditory canals clear 02/14/2014 None Full Exam - General 1994 Ears/Nose/Throat otoscopic exam Overall: tympanic membranes clear 02/14/2014 None Full Exam - General 1994 Ears/Nose/Throat oral cavity/pharynx/larynx Overall: oral mucosa clear 02/14/2014 None Full Exam - General 1994 Ears/Nose/Throat oral cavity/pharynx/larynx Overall: oropharyngeal mucosa clear 02/14/2014 None Full Exam - General 1994 Ears/Nose/Throat oral cavity/pharynx/larynx Overall: no masses 02/14/2014 None Full Exam - General 1994 Respiratory auscultation Overall: breath sounds clear bilaterally 02/14/2014 None Full Exam - General 1994 Respiratory respiratory effort/rhythm Overall: no retractions 02/14/2014 None Full Exam - General 1994 Respiratory respiratory effort/rhythm Overall: normal rate 02/14/2014 None Full Exam - General 1994 Cardiovascular auscultation of heart Overall: regular rate 02/14/2014 None Full Exam - General 1994 Cardiovascular auscultation of heart Overall: normal heart sounds 02/14/2014 None Full Exam - General 1994 Cardiovascular auscultation of heart Overall: no murmurs 02/14/2014 None Full Exam - General 1994 Neurologic gait Overall: no ataxia, no unsteadiness 02/14/2014 None Full Exam - General 1994 Psychiatric orientation/consciousness Overall: oriented to person, place and time 02/14/2014 None Full Exam - General 1994 Psychiatric mood and affect Overall: normal mood and affect 02/14/2014 None Full Exam - General 1994 Integument inspection of skin Dermatitis: erythema 02/14/2014 anterior left lower leg/t ibia, healing bite jeff. Full Exam - Cardiology Respiratory auscultation Overall: breath sounds clear bilaterally 01/16/2014 None Full Exam - Cardiology Cardiovascular auscultation of heart Overall: regular rate 01/16/2014 None Full Exam - Cardiology Constitutional general appearance Overall: well nourished 01/16/2014 None Full Exam - Cardiology Constitutional general appearance Overall: well developed 01/16/2014 None Full Exam - Cardiology Constitutional general appearance Overall: in no acute distress 01/16/2014 None Full Exam - Cardiology Psychiatric orientation/consciousness Overall: oriented to person, place and time 01/16/2014 None Full Exam - Cardiology Psychiatric mood and affect Overall: normal mood and affect 01/16/2014 None Full Exam - Cardiology Musculoskeletal gait and station Overall: normal gait 01/16/2014 None Full Exam - Cardiology Musculoskeletal gait and station Overall: normal station 01/16/2014 - upper extremity with t enderness to palpation over the anterior head of biceps bilaterally Full Exam - General 1994 Constitutional general appearance Overall: well developed 11/14/2013 None Full Exam - General 1994 Constitutional general appearance Overall: in no acute distress 11/14/2013 None Full Exam - General 1994 Constitutional general appearance Overall: well nourished 11/14/2013 None Full Exam - General 1994 Eyes pupils and irises Overall: pupils equal, round, reactive to light and accomodation 11/14/2013 None Full Exam - General 1994 Ears/Nose/Throat otoscopic exam Overall: external auditory canals clear 11/14/2013 None Full Exam - General 1994 Ears/Nose/Throat otoscopic exam Overall: tympanic membranes clear 11/14/2013 None Full Exam - General 1994 Ears/Nose/Throat oral cavity/pharynx/larynx Overall: oral mucosa clear 11/14/2013 None Full Exam - General 1994 Ears/Nose/Throat oral cavity/pharynx/larynx Overall: oropharyngeal mucosa clear 11/14/2013 None Full Exam - General 1994 Ears/Nose/Throat oral cavity/pharynx/larynx Overall: no masses 11/14/2013 None Full Exam - General 1994 Respiratory auscultation Overall: breath sounds clear bilaterally 11/14/2013 None Full Exam - General 1994 Respiratory respiratory effort/rhythm Overall: no retractions 11/14/2013 None Full Exam - General 1994 Respiratory respiratory effort/rhythm Overall: normal rate 11/14/2013 None Full Exam - General 1994 Cardiovascular auscultation of heart Overall: regular rate 11/14/2013 None Full Exam - General 1994 Cardiovascular auscultation of heart Overall: normal heart sounds 11/14/2013 None Full Exam - General 1994 Cardiovascular auscultation of heart Overall: no murmurs 11/14/2013 None Full Exam - General 1994 Abdomen abdominal exam Overall: no tenderness 11/14/2013 None Full Exam - General 1994 Abdomen abdominal exam Overall: normal bowel sounds 11/14/2013 None Full Exam - General 1994 Abdomen abdominal exam Contour: rounded 11/14/2013 None Full Exam - General 1994 Musculoskeletal digits and nails Overall: no clubbing 11/14/2013 None Full Exam - General 1994 Musculoskeletal digits and nails Overall: digits benign 11/14/2013 None Full Exam - General 1994 Musculoskeletal spine, ribs and pelvis Overall: spine benign 11/14/2013 None Full Exam - General 1994 Musculoskeletal spine, ribs and pelvis Overall: sacroiliac joint benign 11/14/2013 None Full Exam - General 1994 Musculoskeletal spine, ribs and pelvis Overall: good posture 11/14/2013 None Full Exam - General 1994 Musculoskeletal gait and station Overall: normal gait 11/14/2013 None Full Exam - General 1994 Musculoskeletal gait and station Overall: normal station 11/14/2013 None Full Exam - General 1994 Neurologic gait Overall: no ataxia, no unsteadiness 11/14/2013 None Full Exam - General 1994 Psychiatric orientation/consciousness Overall: oriented to person, place and time 11/14/2013 None Full Exam - General 1994 Psychiatric mood and affect Overall: normal mood and affect 11/14/2013 None Full Exam - General 1994 Constitutional general appearance Overall: well developed 10/24/2013 None Full Exam - General 1994 Constitutional general appearance Overall: in no acute distress 10/24/2013 None Full Exam - General 1994 Constitutional general appearance Overall: well nourished 10/24/2013 None Full Exam - General 1994 Eyes pupils and irises Overall: pupils equal, round, reactive to light and accomodation 10/24/2013 None Full Exam - General 1994 Ears/Nose/Throat otoscopic exam Overall: external auditory canals clear 10/24/2013 None Full Exam - General 1994 Ears/Nose/Throat otoscopic exam Overall: tympanic membranes clear 10/24/2013 None Full Exam - General 1994 Ears/Nose/Throat oral cavity/pharynx/larynx Overall: oral mucosa clear 10/24/2013 None Full Exam - General 1994 Ears/Nose/Throat oral cavity/pharynx/larynx Overall: oropharyngeal mucosa clear 10/24/2013 None Full Exam - General 1994 Ears/Nose/Throat oral cavity/pharynx/larynx Overall: no masses 10/24/2013 None Full Exam - General 1994 Respiratory auscultation Overall: breath sounds clear bilaterally 10/24/2013 None Full Exam - General 1994 Respiratory respiratory effort/rhythm Overall: no retractions 10/24/2013 None Full Exam - General 1994 Respiratory respiratory effort/rhythm Overall: normal rate 10/24/2013 None Full Exam - General 1994 Cardiovascular auscultation of heart Overall: regular rate 10/24/2013 None Full Exam - General 1994 Cardiovascular auscultation of heart Overall: normal heart sounds 10/24/2013 None Full Exam - General 1994 Cardiovascular auscultation of heart Overall: no murmurs 10/24/2013 None Full Exam - General 1994 Abdomen abdominal exam Overall: no tenderness 10/24/2013 None Full Exam - General 1994 Abdomen abdominal exam Overall: normal bowel sounds 10/24/2013 None Full Exam - General 1994 Abdomen abdominal exam Contour: rounded 10/24/2013 None Full Exam - General 1994 Musculoskeletal digits and nails Overall: no clubbing 10/24/2013 None Full Exam - General 1994 Musculoskeletal digits and nails Overall: digits benign 10/24/2013 None Full Exam - General 1994 Musculoskeletal spine, ribs and pelvis Overall: spine benign 10/24/2013 None Full Exam - General 1994 Musculoskeletal spine, ribs and pelvis Overall: sacroiliac joint benign 10/24/2013 None Full Exam - General 1994 Musculoskeletal spine, ribs and pelvis Overall: good posture 10/24/2013 None Full Exam - General 1994 Musculoskeletal gait and station Overall: normal gait 10/24/2013 None Full Exam - General 1994 Musculoskeletal gait and station Overall: normal station 10/24/2013 None Full Exam - General 1994 Neurologic gait Overall: no ataxia, no unsteadiness 10/24/2013 None Full Exam - General 1994 Psychiatric orientation/consciousness Overall: oriented to person, place and time 10/24/2013 None Full Exam - General 1994 Psychiatric mood and affect Overall: normal mood and affect 10/24/2013 None Full Exam - General 1994 Constitutional general appearance Overall: well developed 06/24/2013 None Full Exam - General 1994 Cardiovascular auscultation of heart Overall: no murmurs 06/24/2013 None Full Exam - General 1994 Abdomen abdominal exam Overall: no tenderness 06/24/2013 None Full Exam - General 1994 Abdomen abdominal exam Overall: normal bowel sounds 06/24/2013 None Full Exam - General 1994 Abdomen abdominal exam Contour: rounded 06/24/2013 None Full Exam - General 1994 Musculoskeletal digits and nails Overall: no clubbing 06/24/2013 None Full Exam - General 1994 Musculoskeletal digits and nails Overall: digits benign 06/24/2013 None Full Exam - General 1994 Musculoskeletal spine, ribs and pelvis Overall: spine benign 06/24/2013 None Full Exam - General 1994 Musculoskeletal spine, ribs and pelvis Overall: sacroiliac joint benign 06/24/2013 None Full Exam - General 1994 Musculoskeletal spine, ribs and pelvis Overall: good posture 06/24/2013 None Full Exam - General 1994 Musculoskeletal gait and station Overall: normal gait 06/24/2013 None Full Exam - General 1994 Musculoskeletal gait and station Overall: normal station 06/24/2013 None Full Exam - General 1994 Neurologic gait Overall: no ataxia, no unsteadiness 06/24/2013 None Full Exam - General 1994 Psychiatric orientation/consciousness Overall: oriented to person, place and time 06/24/2013 None Full Exam - General 1994 Psychiatric mood and affect Overall: normal mood and affect 06/24/2013 None Full Exam - General 1994 Constitutional general appearance Overall: in no acute distress 06/24/2013 None Full Exam - General 1994 Constitutional general appearance Overall: well nourished 06/24/2013 None Full Exam - General 1994 Eyes pupils and irises Overall: pupils equal, round, reactive to light and accomodation 06/24/2013 None Full Exam - General 1994 Ears/Nose/Throat otoscopic exam Overall: external auditory canals clear 06/24/2013 None Full Exam - General 1994 Ears/Nose/Throat otoscopic exam Overall: tympanic membranes clear 06/24/2013 None Full Exam - General 1994 Ears/Nose/Throat oral cavity/pharynx/larynx Overall: oral mucosa clear 06/24/2013 None Full Exam - General 1994 Ears/Nose/Throat oral cavity/pharynx/larynx Overall: oropharyngeal mucosa clear 06/24/2013 None Full Exam - General 1994 Ears/Nose/Throat oral cavity/pharynx/larynx Overall: no masses 06/24/2013 None Full Exam - General 1994 Respiratory auscultation Overall: breath sounds clear bilaterally 06/24/2013 None Full Exam - General 1994 Respiratory respiratory effort/rhythm Overall: no retractions 06/24/2013 None Full Exam - General 1994 Respiratory respiratory effort/rhythm Overall: normal rate 06/24/2013 None Full Exam - General 1994 Cardiovascular auscultation of heart Overall: regular rate 06/24/2013 None Full Exam - General 1994 Cardiovascular auscultation of heart Overall: normal heart sounds 06/24/2013 None Full Exam - General 1994 Constitutional general appearance Overall: well developed 06/05/2013 None Full Exam - General 1994 Constitutional general appearance Overall: in no acute distress 06/05/2013 None Full Exam - General 1994 Constitutional general appearance Overall: well nourished 06/05/2013 None Full Exam - General 1994 Eyes pupils and irises Overall: pupils equal, round, reactive to light and accomodation 06/05/2013 None Full Exam - General 1995 Ears/Nose/Throat otoscopic exam Overall: external auditory canals clear 06/05/2013 None Full Exam - General 1995 Ears/Nose/Throat otoscopic exam Overall: tympanic membranes clear 06/05/2013 None Full Exam - General 1994 Ears/Nose/Throat oral cavity/pharynx/larynx Overall: oral mucosa clear 06/05/2013 None Full Exam - General 1995 Ears/Nose/Throat oral cavity/pharynx/larynx Overall: oropharyngeal mucosa clear 06/05/2013 None Full Exam - General 1995 Ears/Nose/Throat oral cavity/pharynx/larynx Overall: no masses 06/05/2013 None Full Exam - General 1994 Respiratory auscultation Overall: breath sounds clear bilaterally 06/05/2013 None Full Exam - General 1994 Respiratory respiratory effort/rhythm Overall: no retractions 06/05/2013 None Full Exam - General 1994 Respiratory respiratory effort/rhythm Overall: normal rate 06/05/2013 None Full Exam - General 1994 Cardiovascular auscultation of heart Overall: regular rate 06/05/2013 None Full Exam - General 1994 Cardiovascular auscultation of heart Overall: normal heart sounds 06/05/2013 None Full Exam - General 1994 Cardiovascular auscultation of heart Overall: no murmurs 06/05/2013 None Full Exam - General 1994 Abdomen abdominal exam Overall: no tenderness 06/05/2013 None Full Exam - General 1994 Abdomen abdominal exam Overall: normal bowel sounds 06/05/2013 None Full Exam - General 1994 Abdomen abdominal exam Contour: rounded 06/05/2013 None Full Exam - General 1994 Musculoskeletal digits and nails Overall: no clubbing 06/05/2013 None Full Exam - General 1995 Musculoskeletal digits and nails Overall: digits benign 06/05/2013 None Full Exam - General 1995 Musculoskeletal spine, ribs and pelvis Overall: spine benign 06/05/2013 None Full Exam - General 1995 Musculoskeletal spine, ribs and pelvis Overall: sacroiliac joint benign 06/05/2013 None Full Exam - General 1995 Musculoskeletal spine, ribs and pelvis Overall: good posture 06/05/2013 None Full Exam - General 1995 Musculoskeletal gait and station Overall: normal gait 06/05/2013 None Full Exam - General 1995 Musculoskeletal gait and station Overall: normal station 06/05/2013 None Full Exam - General 1995 Neurologic gait Overall: no ataxia, no unsteadiness 06/05/2013 None Full Exam - General 1995 Psychiatric orientation/consciousness Overall: oriented to person, place and time 06/05/2013 None Full Exam - General 1994 Psychiatric mood and affect Overall: normal mood and affect 06/05/2013 None Full Exam - General 1994 Ears/Nose/Throat oral cavity/pharynx/larynx Overall: oropharyngeal mucosa clear 04/01/2013 None Full Exam - General 1995 Ears/Nose/Throat oral cavity/pharynx/larynx Overall: no masses 04/01/2013 None Full Exam - General 1994 Respiratory auscultation Overall: breath sounds clear bilaterally 04/01/2013 None Full Exam - General 1994 Respiratory respiratory effort/rhythm Overall: no retractions 04/01/2013 None Full Exam - General 1994 Respiratory respiratory effort/rhythm Overall: normal rate 04/01/2013 None Full Exam - General 1994 Cardiovascular auscultation of heart Overall: regular rate 04/01/2013 None Full Exam - General 1994 Cardiovascular auscultation of heart Overall: normal heart sounds 04/01/2013 None Full Exam - General 1994 Cardiovascular auscultation of heart Overall: no murmurs 04/01/2013 None Full Exam - General 1994 Abdomen abdominal exam Overall: no tenderness 04/01/2013 None Full Exam - General 1994 Abdomen abdominal exam Overall: normal bowel sounds 04/01/2013 None Full Exam - General 1994 Abdomen abdominal exam Contour: rounded 04/01/2013 None Full Exam - General 1994 Musculoskeletal digits and nails Overall: no clubbing 04/01/2013 None Full Exam - General 1994 Musculoskeletal digits and nails Overall: digits benign 04/01/2013 None Full Exam - General 1994 Musculoskeletal spine, ribs and pelvis Overall: spine benign 04/01/2013 None Full Exam - General 1995 Constitutional general appearance Overall: well developed 04/01/2013 None Full Exam - General 1994 Constitutional general appearance Overall: in no acute distress 04/01/2013 None Full Exam - General 1995 Constitutional general appearance Overall: well nourished 04/01/2013 None Full Exam - General 1994 Eyes pupils and irises Overall: pupils equal, round, reactive to light and accomodation 04/01/2013 None Full Exam - General 1995 Ears/Nose/Throat otoscopic exam Overall: external auditory canals clear 04/01/2013 None Full Exam - General 1995 Ears/Nose/Throat otoscopic exam Overall: tympanic membranes clear 04/01/2013 None Full Exam - General 1995 Ears/Nose/Throat oral cavity/pharynx/larynx Overall: oral mucosa clear 04/01/2013 None Full Exam - General 1995 Musculoskeletal spine, ribs and pelvis Overall: sacroiliac joint benign 04/01/2013 None Full Exam - General 1994 Musculoskeletal spine, ribs and pelvis Overall: good posture 04/01/2013 None Full Exam - General 1994 Musculoskeletal gait and station Overall: normal gait 04/01/2013 None Full Exam - General 1994 Musculoskeletal gait and station Overall: normal station 04/01/2013 None Full Exam - General 1994 Neurologic gait Overall: no ataxia, no unsteadiness 04/01/2013 None Full Exam - General 1994 Psychiatric orientation/consciousness Overall: oriented to person, place and time 04/01/2013 None Full Exam - General 1994 Psychiatric mood and affect Overall: normal mood and affect 04/01/2013 None Full Exam - General 1994 Constitutional general appearance Overall: well developed 01/29/2013 None Full Exam - General 1994 Constitutional general appearance Overall: in no acute distress 01/29/2013 None Full Exam - General 1994 Constitutional general appearance Overall: well nourished 01/29/2013 None Full Exam - General 1994 Eyes pupils and irises Overall: pupils equal, round, reactive to light and accomodation 01/29/2013 None Full Exam - General 1995 Ears/Nose/Throat otoscopic exam Overall: external auditory canals clear 01/29/2013 None Full Exam - General 1995 Ears/Nose/Throat otoscopic exam Overall: tympanic membranes clear 01/29/2013 None Full Exam - General 1995 Ears/Nose/Throat oral cavity/pharynx/larynx Overall: oral mucosa clear 01/29/2013 None Full Exam - General 1995 Ears/Nose/Throat oral cavity/pharynx/larynx Overall: oropharyngeal mucosa clear 01/29/2013 None Full Exam - General 1995 Ears/Nose/Throat oral cavity/pharynx/larynx Overall: no masses 01/29/2013 None Full Exam - General 1994 Respiratory auscultation Overall: breath sounds clear bilaterally 01/29/2013 None Full Exam - General 1994 Respiratory respiratory effort/rhythm Overall: no retractions 01/29/2013 None Full Exam - General 1994 Respiratory respiratory effort/rhythm Overall: normal rate 01/29/2013 None Full Exam - General 1994 Cardiovascular auscultation of heart Overall: regular rate 01/29/2013 None Full Exam - General 1994 Cardiovascular auscultation of heart Overall: normal heart sounds 01/29/2013 None Full Exam - General 1994 Cardiovascular auscultation of heart Overall: no murmurs 01/29/2013 None Full Exam - General 1994 Abdomen abdominal exam Overall: no tenderness 01/29/2013 None Full Exam - General 1994 Abdomen abdominal exam Overall: normal bowel sounds 01/29/2013 None Full Exam - General 1994 Abdomen abdominal exam Contour: rounded 01/29/2013 None Full Exam - General 1994 Musculoskeletal digits and nails Overall: no clubbing 01/29/2013 None Full Exam - General 1994 Musculoskeletal digits and nails Overall: digits benign 01/29/2013 None Full Exam - General 1994 Musculoskeletal spine, ribs and pelvis Overall: spine benign 01/29/2013 None Full Exam - General 1994 Musculoskeletal spine, ribs and pelvis Overall: sacroiliac joint benign 01/29/2013 None Full Exam - General 1994 Musculoskeletal spine, ribs and pelvis Overall: good posture 01/29/2013 None Full Exam - General 1994 Musculoskeletal gait and station Overall: normal gait 01/29/2013 None Full Exam - General 1994 Musculoskeletal gait and station Overall: normal station 01/29/2013 None Full Exam - General 1994 Neurologic gait Overall: no ataxia, no unsteadiness 01/29/2013 None Full Exam - General 1994 Psychiatric orientation/consciousness Overall: oriented to person, place and time 01/29/2013 None Full Exam - General 1994 Psychiatric mood and affect Overall: normal mood and affect 01/29/2013 None Full Exam - General 1994 Constitutional general appearance Overall: well developed 12/25/2012 None Full Exam - General 1994 Constitutional general appearance Overall: in no acute distress 12/25/2012 None Full Exam - General 1995 Constitutional general appearance Overall: well nourished 12/25/2012 None Full Exam - General 1994 Eyes pupils and irises Overall: pupils equal, round, reactive to light and accomodation 12/25/2012 None Full Exam - General 1995 Ears/Nose/Throat otoscopic exam Overall: external auditory canals clear 12/25/2012 None Full Exam - General 1995 Ears/Nose/Throat otoscopic exam Overall: tympanic membranes clear 12/25/2012 None Full Exam - General 1995 Ears/Nose/Throat oral cavity/pharynx/larynx Overall: oral mucosa clear 12/25/2012 None Full Exam - General 1995 Ears/Nose/Throat oral cavity/pharynx/larynx Overall: oropharyngeal mucosa clear 12/25/2012 None Full Exam - General 1995 Ears/Nose/Throat oral cavity/pharynx/larynx Overall: no masses 12/25/2012 None Full Exam - General 1994 Respiratory auscultation Overall: breath sounds clear bilaterally 12/25/2012 None Full Exam - General 1994 Respiratory respiratory effort/rhythm Overall: no retractions 12/25/2012 None Full Exam - General 1994 Respiratory respiratory effort/rhythm Overall: normal rate 12/25/2012 None Full Exam - General 1994 Cardiovascular auscultation of heart Overall: regular rate 12/25/2012 None Full Exam - General 1994 Cardiovascular auscultation of heart Overall: normal heart sounds 12/25/2012 None Full Exam - General 1994 Cardiovascular auscultation of heart Overall: no murmurs 12/25/2012 None Full Exam - General 1994 Abdomen abdominal exam Overall: no tenderness 12/25/2012 None Full Exam - General 1994 Abdomen abdominal exam Overall: normal bowel sounds 12/25/2012 None Full Exam - General 1994 Abdomen abdominal exam Contour: rounded 12/25/2012 None Full Exam - General 1994 Musculoskeletal digits and nails Overall: no clubbing 12/25/2012 None Full Exam - General 1994 Musculoskeletal digits and nails Overall: digits benign 12/25/2012 None Full Exam - General 1994 Musculoskeletal spine, ribs and pelvis Overall: spine benign 12/25/2012 None Full Exam - General 1994 Musculoskeletal spine, ribs and pelvis Overall: sacroiliac joint benign 12/25/2012 None Full Exam - General 1994 Musculoskeletal spine, ribs and pelvis Overall: good posture 12/25/2012 None Full Exam - General 1994 Musculoskeletal gait and station Overall: normal gait 12/25/2012 None Full Exam - General 1995 Musculoskeletal gait and station Overall: normal station 12/25/2012 None Full Exam - General 1994 Neurologic gait Overall: no ataxia, no unsteadiness 12/25/2012 None Full Exam - General 1994 Psychiatric orientation/consciousness Overall: oriented to person, place and time 12/25/2012 None Full Exam - General 1995 Psychiatric mood and affect Overall: normal mood and affect 12/25/2012 None Full Exam - General 1995 Constitutional general appearance Overall: well developed 10/01/2012 None Full Exam - General 1995 Constitutional general appearance Overall: in no acute distress 10/01/2012 None Full Exam - General 1995 Constitutional general appearance Overall: well nourished 10/01/2012 None Full Exam - General 1994 Eyes pupils and irises Overall: pupils equal, round, reactive to light and accomodation 10/01/2012 None Full Exam - General 1995 Ears/Nose/Throat otoscopic exam Overall: external auditory canals clear 10/01/2012 None Full Exam - General 1994 Ears/Nose/Throat otoscopic exam Overall: tympanic membranes clear 10/01/2012 None Full Exam - General 1995 Ears/Nose/Throat oral cavity/pharynx/larynx Overall: oral mucosa clear 10/01/2012 None Full Exam - General 1995 Ears/Nose/Throat oral cavity/pharynx/larynx Overall: oropharyngeal mucosa clear 10/01/2012 None Full Exam - General 1995 Ears/Nose/Throat oral cavity/pharynx/larynx Overall: no masses 10/01/2012 None Full Exam - General 1994 Respiratory auscultation Overall: breath sounds clear bilaterally 10/01/2012 None Full Exam - General 1994 Respiratory respiratory effort/rhythm Overall: no retractions 10/01/2012 None Full Exam - General 1994 Respiratory respiratory effort/rhythm Overall: normal rate 10/01/2012 None Full Exam - General 1994 Cardiovascular auscultation of heart Overall: regular rate 10/01/2012 None Full Exam - General 1994 Cardiovascular auscultation of heart Overall: normal heart sounds 10/01/2012 None Full Exam - General 1994 Cardiovascular auscultation of heart Overall: no murmurs 10/01/2012 None Full Exam - General 1994 Abdomen abdominal exam Overall: no tenderness 10/01/2012 None Full Exam - General 1994 Abdomen abdominal exam Overall: normal bowel sounds 10/01/2012 None Full Exam - General 1994 Abdomen abdominal exam Contour: rounded 10/01/2012 None Full Exam - General 1995 Musculoskeletal digits and nails Overall: no clubbing 10/01/2012 None Full Exam - General 1995 Musculoskeletal digits and nails Overall: digits benign 10/01/2012 None Full Exam - General 1995 Musculoskeletal spine, ribs and pelvis Overall: spine benign 10/01/2012 None Full Exam - General 1995 Musculoskeletal spine, ribs and pelvis Overall: sacroiliac joint benign 10/01/2012 None Full Exam - General 1995 Musculoskeletal spine, ribs and pelvis Overall: good posture 10/01/2012 None Full Exam - General 1995 Musculoskeletal gait and station Overall: normal gait 10/01/2012 None Full Exam - General 1995 Musculoskeletal gait and station Overall: normal station 10/01/2012 None Full Exam - General 1995 Neurologic gait Overall: no ataxia, no unsteadiness 10/01/2012 None Full Exam - General 1995 Psychiatric orientation/consciousness Overall: oriented to person, place and time 10/01/2012 None Full Exam - General 1995 Psychiatric mood and affect Overall: normal mood and affect 10/01/2012 None Full Exam - General 1994 Respiratory auscultation Lower lung field: diminished 06/29/2012 None Full Exam - General 1994 Respiratory respiratory effort/rhythm Overall: no retractions 06/29/2012 None Full Exam - General 1994 Respiratory respiratory effort/rhythm Overall: normal rate 06/29/2012 None Full Exam - General 1994 Cardiovascular auscultation of heart Overall: regular rate 06/29/2012 None Full Exam - General 1994 Cardiovascular auscultation of heart Overall: normal heart sounds 06/29/2012 None Full Exam - General 1994 Cardiovascular auscultation of heart Overall: no murmurs 06/29/2012 None Full Exam - General 1994 Musculoskeletal digits and nails Overall: no clubbing 06/29/2012 None Full Exam - General 1994 Musculoskeletal digits and nails Overall: digits benign 06/29/2012 None Full Exam - General 1994 Musculoskeletal spine, ribs and pelvis Overall: good posture 06/29/2012 None Full Exam - General 1994 Musculoskeletal gait and station Overall: normal gait 06/29/2012 None Full Exam - General 1995 Musculoskeletal gait and station Overall: normal station 06/29/2012 None Full Exam - General 1994 Psychiatric orientation/consciousness Overall: oriented to person, place and time 06/29/2012 None Full Exam - General 1994 Psychiatric mood and affect Overall: normal mood and affect 06/29/2012 None Full Exam - General 1995 Respiratory auscultation Upper lung field: a normal exam 06/29/2012 None Full Exam - General 1994 Constitutional general appearance Overall: well developed 06/29/2012 None Full Exam - General 1994 Constitutional general appearance Overall: in no acute distress 06/29/2012 None Full Exam - General 1994 Constitutional general appearance Overall: well nourished 06/29/2012 None Full Exam - General 1994 Eyes pupils and irises Overall: pupils equal, round, reactive to light and accomodation 06/29/2012 None Full Exam - General 1995 Ears/Nose/Throat otoscopic exam Overall: external auditory canals clear 06/29/2012 None Full Exam - General 1994 Ears/Nose/Throat otoscopic exam Tympanic membrane: erythematous 06/29/2012 None Full Exam - General 1995 Ears/Nose/Throat otoscopic exam Tympanic membrane: bulging 06/29/2012 None Full Exam - General 1995 Ears/Nose/Throat oral cavity/pharynx/larynx Overall: oral mucosa clear 06/29/2012 None Full Exam - General 1995 Ears/Nose/Throat oral cavity/pharynx/larynx Overall: no masses 06/29/2012 None Full Exam - General 1995 Ears/Nose/Throat oral cavity/pharynx/larynx Posterior Pharynx: purulent post nasal drainage 06/29/2012 None Full Exam - General 1994 Constitutional general appearance Overall: well developed 05/28/2012 None Full Exam - General 1994 Constitutional general appearance Overall: in no acute distress 05/28/2012 None Full Exam - General 1994 Constitutional general appearance Overall: well nourished 05/28/2012 None Full Exam - General 1994 Eyes pupils and irises Overall: pupils equal, round, reactive to light and accomodation 05/28/2012 None Full Exam - General 1994 Ears/Nose/Throat otoscopic exam Overall: external auditory canals clear 05/28/2012 None Full Exam - General 1994 Ears/Nose/Throat oral cavity/pharynx/larynx Overall: oral mucosa clear 05/28/2012 None Full Exam - General 1995 Ears/Nose/Throat oral cavity/pharynx/larynx Overall: no masses 05/28/2012 None Full Exam - General 1994 Respiratory respiratory effort/rhythm Overall: no retractions 05/28/2012 None Full Exam - General 1994 Respiratory respiratory effort/rhythm Overall: normal rate 05/28/2012 None Full Exam - General 1995 Cardiovascular auscultation of heart Overall: regular rate 05/28/2012 None Full Exam - General 1994 Cardiovascular auscultation of heart Overall: normal heart sounds 05/28/2012 None Full Exam - General 1994 Cardiovascular auscultation of heart Overall: no murmurs 05/28/2012 None Full Exam - General 1995 Musculoskeletal digits and nails Overall: no clubbing 05/28/2012 None Full Exam - General 1994 Musculoskeletal digits and nails Overall: digits benign 05/28/2012 None Full Exam - General 1994 Musculoskeletal spine, ribs and pelvis Overall: good posture 05/28/2012 None Full Exam - General 1995 Musculoskeletal gait and station Overall: normal gait 05/28/2012 None Full Exam - General 1994 Musculoskeletal gait and station Overall: normal station 05/28/2012 None Full Exam - General 1994 Psychiatric orientation/consciousness Overall: oriented to person, place and time 05/28/2012 None Full Exam - General 1994 Psychiatric mood and affect Overall: normal mood and affect 05/28/2012 None Full Exam - General 1994 Ears/Nose/Throat otoscopic exam Tympanic membrane: erythematous 05/28/2012 None Full Exam - General 1994 Ears/Nose/Throat otoscopic exam Tympanic membrane: bulging 05/28/2012 None Full Exam - General 1994 Ears/Nose/Throat oral cavity/pharynx/larynx Posterior Pharynx: purulent post nasal drainage 05/28/2012 None Full Exam - General 1994 Respiratory auscultation Upper lung field: bronchial 05/28/2012 None Full Exam - General 1994 Respiratory auscultation Upper lung field: rhonchi 05/28/2012 None Full Exam - General 1994 Respiratory auscultation Lower lung field: diminished 05/28/2012 None Full Exam - General 1994 Constitutional general appearance Overall: well nourished 04/02/2012 None Full Exam - General 1994 Constitutional general appearance Overall: well developed 04/02/2012 None Full Exam - General 1994 Constitutional general appearance Overall: in no acute distress 04/02/2012 None Full Exam - General 1994 Eyes pupils and irises Overall: pupils equal, round, reactive to light and accomodation 04/02/2012 None Full Exam - General 1994 Respiratory auscultation Overall: breath sounds clear bilaterally 04/02/2012 None Full Exam - General 1994 Respiratory respiratory effort/rhythm Overall: no retractions 04/02/2012 None Full Exam - General 1994 Respiratory respiratory effort/rhythm Overall: normal rate 04/02/2012 None Full Exam - General 1994 Cardiovascular auscultation of heart Overall: regular rate 04/02/2012 None Full Exam - General 1994 Cardiovascular auscultation of heart Overall: normal heart sounds 04/02/2012 None Full Exam - General 1994 Cardiovascular auscultation of heart Overall: no murmurs 04/02/2012 None Full Exam - General 1994 Abdomen abdominal exam Overall: no tenderness 04/02/2012 None Full Exam - General 1995 Abdomen abdominal exam Overall: normal bowel sounds 04/02/2012 None Full Exam - General 1995 Abdomen abdominal exam Contour: rounded 04/02/2012 None Full Exam - General 1994 Neurologic gait Overall: no ataxia, no unsteadiness 04/02/2012 None Full Exam - General 1994 Psychiatric orientation/consciousness Overall: oriented to person, place and time 04/02/2012 None Full Exam - General 1994 Psychiatric mood and affect Overall: normal mood and affect 04/02/2012 None Full Exam - General 1994 Ears/Nose/Throat otoscopic exam Overall: tympanic membranes clear 04/02/2012 None Full Exam - General 1995 Ears/Nose/Throat otoscopic exam Overall: external auditory canals clear 04/02/2012 None Full Exam - General 1995 Ears/Nose/Throat oral cavity/pharynx/larynx Overall: oropharyngeal mucosa clear 04/02/2012 None Full Exam - General 1995 Ears/Nose/Throat oral cavity/pharynx/larynx Overall: no masses 04/02/2012 None Full Exam - General 1995 Ears/Nose/Throat oral cavity/pharynx/larynx Overall: oral mucosa clear 04/02/2012 None Full Exam - General 1994 Musculoskeletal digits and nails Overall: digits benign 04/02/2012 None Full Exam - General 1994 Musculoskeletal digits and nails Overall: no clubbing 04/02/2012 None Full Exam - General 1994 Musculoskeletal gait and station Overall: normal station 04/02/2012 None Full Exam - General 1994 Musculoskeletal gait and station Overall: normal gait 04/02/2012 None Full Exam - General 1994 Musculoskeletal spine, ribs and pelvis Overall: good posture 04/02/2012 None Full Exam - General 1994 Musculoskeletal spine, ribs and pelvis Overall: sacroiliac joint benign 04/02/2012 None Full Exam - General 1994 Musculoskeletal spine, ribs and pelvis Overall: spine benign 04/02/2012 None Full Exam - ENT Neurologic orientation Overall: oriented to person, place a nd time 01/24/2012 None Full Exam - ENT Lymphatic palpation of lymph nodes Overall: anterior cervical chain benign 01/24/2012 None Full Exam - ENT Lymphatic palpation of lymph nodes Overall: posterior cervical chain benign 01/24/2012 None Full Exam - ENT Cardiovascular auscultation of heart Overall: regular rate 01/24/2012 None Full Exam - ENT Cardiovascular auscultation of heart Overall: normal heart sounds 01/24/2012 None Full Exam - ENT Respiratory auscultation Overall: breath sounds clear bilater ally 01/24/2012 None Full Exam - ENT Face and Head palpation Overall: no sinus tenderness 01/24/2012 None Full Exam - ENT Ears/Nose/Throat otoscopic exam Overall: external auditory canals normal 01/24/2012 None Full Exam - ENT Ears/Nose/Throat otoscopic exam Left tympanic membrane: air-fluid le ingrid 01/24/2012 None Full Exam - ENT Ears/Nose/Throat otoscopic exam Right tympanic membrane: air-fluid level 01/24/2012 None Full Exam - ENT Ears/Nose/Throat oropharynx Overall: oral mucosa clear 01/24/2012 None Full Exam - ENT Constitutional general appearance Overall: well nourished 01/24/2012 None Full Exam - ENT Constitutional general appearance Overall: well developed 01/24/2012 None Full Exam - ENT Constitutional general appearance Overall: in no acute distress 01/24/2012 None Full Exam - ENT Ears/Nose/Throat nasal mucosa, septum, turbinates Drainage: purulent 01/24/2012 None Full Exam - ENT Ears/Nose/Throat nasal mucosa, septum, turbinates Left nasal cavity: erythema 01/24/2012 None Full Exam - ENT Ears/Nose/Throat nasal mucosa, septum, turbinates Right nasal cavity: erythema 01/24/2012 None Full Exam - Cardiology Constitutional general appearance Overall: well nourished 10/03/2011 None Full Exam - Cardiology Constitutional general appearance Overall: well developed 10/03/2011 None Full Exam - Cardiology Constitutional general appearance Overall: in no acute distress 10/03/2011 None Full Exam - Cardiology Eyes conjunctiva/eyelids Overall: conjunctiva clear 10/03/2011 None Full Exam - Cardiology Chest/Breast breast/chest inspection Overall: normal chest shape 10/03/2011 None Full Exam - Cardiology Respiratory respiratory effort/rhythm Overall: no retractions 10/03/2011 None Full Exam - Cardiology Respiratory respiratory effort/rhythm Overall: normal rate 10/03/2011 None Full Exam - Cardiology Respiratory auscultation Overall: breath sounds clear bilaterally 10/03/2011 None Full Exam - Cardiology Cardiovascular auscultation of heart Overall: regular rate 10/03/2011 None Full Exam - Cardiology Cardiovascular auscultation of heart Overall: normal heart sounds 10/03/2011 None Full Exam - Cardiology Cardiovascular extremities Overall: without clubbing, cyanosis, or edema 10/03/2011 None Full Exam - Cardiology Abdomen abdominal exam Overall: no tenderness 10/03/2011 None Full Exam - Cardiology Abdomen abdominal exam Overall: normal bowel sounds 10/03/2011 None Full Exam - Cardiology Extremities digits and nails Overall: no clubbing 10/03/2011 None Full Exam - Cardiology Extremities digits and nails Overall: digits benign 10/03/2011 None Full Exam - Cardiology Psychiatric orientation/consciousness Overall: oriented to person, place and time 10/03/2011 None Full Exam - General 1994 Psychiatric mood and affect Overall: normal mood and affect 05/30/2011 None Full Exam - General 1994 Psychiatric orientation/consciousness Overall: oriented to person, place and time 05/30/2011 None Full Exam - General 1994 Neurologic gait Overall: no ataxia, no unsteadiness 05/30/2011 None Full Exam - General 1994 Abdomen abdominal exam Overall: no tenderness 05/30/2011 None Full Exam - General 1994 Abdomen abdominal exam Overall: normal bowel sounds 05/30/2011 None Full Exam - General 1994 Abdomen abdominal exam Contour: rounded 05/30/2011 None Full Exam - General 1994 Cardiovascular auscultation of heart Overall: regular rate 05/30/2011 None Full Exam - General 1994 Cardiovascular auscultation of heart Overall: normal heart sounds 05/30/2011 None Full Exam - General 1994 Cardiovascular auscultation of heart Overall: no murmurs 05/30/2011 None Full Exam - General 1994 Respiratory auscultation Overall: breath sounds clear bilaterally 05/30/2011 None Full Exam - General 1994 Respiratory respiratory effort/rhythm Overall: normal rate 05/30/2011 None Full Exam - General 1994 Respiratory respiratory effort/rhythm Overall: no retractions 05/30/2011 None Full Exam - General 1994 Constitutional general appearance Overall: well nourished 05/30/2011 None Full Exam - General 1994 Constitutional general appearance Overall: well developed 05/30/2011 None Full Exam - General 1994 Constitutional general appearance Overall: in no acute distress 05/30/2011 None Full Exam - General 1994 Eyes pupils and irises Overall: pupils equal, round, reactive to light and accomodation 05/30/2011 None Exam Name System Name It em Name Status Result Effective Dates Notes Full Exam - General 1994 Constitutional general appearance Overall: well developed 11/01/2018 None Full Exam - General 1994 Constitutional general appearance Overall: in no acute distress 11/01/2018 None Full Exam - General 1994 Constitutional general appearance Overall: well nourished 11/01/2018 None Full Exam - General 1994 Eyes pupils and irises Overall: pupils equal, round, reactive to light and accomodation 11/01/2018 None Full Exam - General 1994 Ears/Nose/Throat otoscopic exam Overall: external auditory canals clear 11/01/2018 None Full Exam - General 1994 Ears/Nose/Throat otoscopic exam Overall: tympanic membranes clear 11/01/2018 None Full Exam - General 1994 Ears/Nose/Throat oral cavity/pharynx/larynx Overall: oral mucosa clear 11/01/2018 None Full Exam - General 1994 Ears/Nose/Throat oral cavity/pharynx/larynx Overall: oropharyngeal mucosa clear 11/01/2018 None Full Exam - General 1994 Ears/Nose/Throat oral cavity/pharynx/larynx Overall: no masses 11/01/2018 None Full Exam - General 1994 Respiratory auscultation Overall: breath sounds clear bilaterally 11/01/2018 None Full Exam - General 1994 Respiratory respiratory effort/rhythm Overall: no retractions 11/01/2018 None Full Exam - General 1994 Respiratory respiratory effort/rhythm Overall: normal rate 11/01/2018 None Full Exam - General 1994 Cardiovascular auscultation of heart Overall: regular rate 11/01/2018 None Full Exam - General 1994 Cardiovascular auscultation of heart Overall: normal heart sounds 11/01/2018 None Full Exam - General 1994 Cardiovascular auscultation of heart Overall: no murmurs 11/01/2018 None Full Exam - General 1994 Abdomen abdominal exam Overall: no tenderness 11/01/2018 None Full Exam - General 1994 Abdomen abdominal exam Overall: normal bowel sounds 11/01/2018 None Full Exam - General 1994 Abdomen abdominal exam Contour: rounded 11/01/2018 None Full Exam - General 1994 Musculoskeletal spine, ribs and pelvis Overall: sacroiliac joint benign 11/01/2018 None Full Exam - General 1994 Musculoskeletal spine, ribs and pelvis Posture: lordosis 11/01/2018 None Full Exam - General 1994 Musculoskeletal gait and station Overall: normal gait 11/01/2018 None Full Exam - General 1994 Musculoskeletal gait and station Overall: normal station 11/01/2018 None Full Exam - General 1994 Psychiatric orientation/consciousness Overall: oriented to person, place and time 11/01/2018 None Full Exam - General 1994 Psychiatric mood and affect Overall: normal mood and affect 11/01/2018 None Full Exam - General 1994 Respiratory palpation of chest Chest wall pain: pain to light pressure 11/01/2018 over xyphoid process Full Exam - General 1994 Neurologic gait Conventional walking: wide-based 11/01/2018 use of walker Full Exam - General 1994 Constitutional general appearance Assistive Device: walker 11/01/2018 None Full Exam - General 1994 Constitutional general appearance Overall: well developed 10/08/2018 None Full Exam - General 1994 Constitutional general appearance Overall: in no acute distress 10/08/2018 None Full Exam - General 1994 Constitutional general appearance Overall: well nourished 10/08/2018 None Full Exam - General 1994 Eyes pupils and irises Overall: pupils equal, round, reactive to light and accomodation 10/08/2018 None Full Exam - General 1994 Ears/Nose/Throat otoscopic exam Overall: external auditory canals clear 10/08/2018 None Full Exam - General 1994 Ears/Nose/Throat otoscopic exam Overall: tympanic membranes clear 10/08/2018 None Full Exam - General 1994 Ears/Nose/Throat oral cavity/pharynx/larynx Overall: oral mucosa clear 10/08/2018 Full Exam - General 1994 Ears/Nose/Throat oral cavity/pharynx/larynx Overall: oropharyngeal mucosa clear 10/08/2018 None Full Exam - General 1994 Ears/Nose/Throat oral cavity/pharynx/larynx Overall: no masses 10/08/2018 None Full Exam - General 1994 Respiratory auscultation Overall: breath sounds clear bilaterally 10/08/2018 None Full Exam - General 1994 Respiratory respiratory effort/rhythm Overall: no retractions 10/08/2018 None Full Exam - General 1994 Respiratory respiratory effort/rhythm Overall: normal rate 10/08/2018 None Full Exam - General 1994 Cardiovascular auscultation of heart Overall: regular rate 10/08/2018 None Full Exam - General 1994 Cardiovascular auscultation of heart Overall: normal heart sounds 10/08/2018 None Full Exam - General 1994 Cardiovascular auscultation of heart Overall: no murmurs 10/08/2018 None Full Exam - General 1994 Abdomen abdominal exam Overall: no tenderness 10/08/2018 None Full Exam - General 1994 Abdomen abdominal exam Overall: normal bowel sounds 10/08/2018 None Full Exam - General 1994 Abdomen abdominal exam Contour: rounded 10/08/2018 None Full Exam - General 1994 Musculoskeletal digits and nails Overall: no clubbing 10/08/2018 None Full Exam - General 1994 Musculoskeletal digits and nails Overall: digits benign 10/08/2018 None Full Exam - General 1994 Musculoskeletal spine, ribs and pelvis Overall: sacroiliac joint benign 10/08/2018 None Full Exam - General 1994 Musculoskeletal spine, ribs and pelvis Posture: lordosis 10/08/2018 None Full Exam - General 1994 Musculoskeletal gait and station Overall: normal gait 10/08/2018 None Full Exam - General 1994 Musculoskeletal gait and station Overall: normal station 10/08/2018 None Full Exam - General 1994 Neurologic gait Overall: no ataxia, no unsteadiness 10/08/2018 None Full Exam - General 1994 Psychiatric orientation/consciousness Overall: oriented to person, place and time 10/08/2018 None Full Exam - General 1994 Psychiatric mood and affect Overall: normal mood and affect 10/08/2018 None Full Exam - Orthopedics Constitutional general appearance Overall: well nourished 09/27/2018 None Full Exam - Orthopedics Constitutional general appearance Overall: well developed 09/27/2018 None Full Exam - Orthopedics Constitutional general appearance Overall: in no acute distress 09/27/2018 None Full Exam - Orthopedics Psychiatric orientation/consciousness Overall: oriented to person, place and time 09/27/2018 None Full Exam - Orthopedics MS: spine/ri b/pelvis insp & palp - S/R/P Sacroiliac palpation: right sacroiliac joint tenderness 09/27/2018 None Full Exam - Orthopedics Respiratory auscultation Overall: breath sounds clear bilaterally 09/27/2018 None Full Exam - Orthopedics Respiratory respiratory effort/rhythm Overall: no retractions 09/27/2018 None Full Exam - Orthopedics Respiratory respiratory effort/rhythm Overall: normal rate 09/27/2018 None Full Exam - Orthopedics Respiratory respiratory effort/rhythm Overall: normal, symmetric chest expansion 09/27/2018 None Full Exam - Orthopedics Musculoskeletal gait and station Overall: normal gait 09/27/2018 None Full Exam - Orthopedics MS: spine/ri b/pelvis insp & palp - S/R/P Hip palpation: tender at the posterior margin of the right trochanter 09/27/2018 None Full Exam - General 1994 Constitutional general appearance Overall: well developed 09/11/2018 None Full Exam - General 1994 Constitutional general appearance Overall: in no acute distress 09/11/2018 None Full Exam - General 1994 Constitutional general appearance Overall: well nourished 09/11/2018 None Full Exam - General 1994 Eyes pupils and irises Overall: pupils equal, round, reactive to light and accomodation 09/11/2018 None Full Exam - General 1994 Ears/Nose/Throat otoscopic exam Overall: external auditory canals clear 09/11/2018 None Full Exam - General 1994 Ears/Nose/Throat otoscopic exam Overall: tympanic membranes clear 09/11/2018 None Full Exam - General 1994 Ears/Nose/Throat oral cavity/pharynx/larynx Overall: no masses 09/11/2018 None Full Exam - General 1994 Respiratory auscultation Overall: breath sounds clear bilaterally 09/11/2018 None Full Exam - General 1994 Respiratory respiratory effort/rhythm Overall: no retractions 09/11/2018 None Full Exam - General 1994 Respiratory respiratory effort/rhythm Overall: normal rate 09/11/2018 None Full Exam - General 1994 Cardiovascular auscultation of heart Overall: regular rate 09/11/2018 None Full Exam - General 1994 Cardiovascular auscultation of heart Overall: normal heart sounds 09/11/2018 None Full Exam - General 1994 Cardiovascular auscultation of heart Overall: no murmurs 09/11/2018 None Full Exam - General 1994 Abdomen abdominal exam Overall: no tenderness 09/11/2018 None Full Exam - General 1994 Abdomen abdominal exam Overall: normal bowel sounds 09/11/2018 None Full Exam - General 1994 Abdomen abdominal exam Contour: rounded 09/11/2018 None Full Exam - General 1994 Musculoskeletal spine, ribs and pelvis Overall: good posture 09/11/2018 None Full Exam - General 1994 Neurologic gait Overall: no ataxia, no unsteadiness 09/11/2018 None Full Exam - General 1994 Psychiatric orientation/consciousness Overall: oriented to person, place and time 09/11/2018 None Full Exam - General 1994 Psychiatric mood and affect Overall: normal mood and affect 09/11/2018 None Full Exam - General 1994 Cardiovascular extremities Edema present: pitting 09/11/2018 None Full Exam - General 1994 Cardiovascular extremities Edema present: severity 1+ - 4+: 2+ 09/11/2018 None Full Exam - General 1994 Constitutional general appearance Overall: well developed 06/04/2018 None Full Exam - General 1994 Constitutional general appearance Overall: in no acute distress 06/04/2018 None Full Exam - General 1994 Constitutional general appearance Overall: well nourished 06/04/2018 None Full Exam - General 1994 Eyes pupils and irises Overall: pupils equal, round, reactive to light and accomodation 06/04/2018 None Full Exam - General 1994 Ears/Nose/Throat otoscopic exam Overall: external auditory canals clear 06/04/2018 None Full Exam - General 1994 Ears/Nose/Throat otoscopic exam Overall: tympanic membranes clear 06/04/2018 None Full Exam - General 1994 Ears/Nose/Throat oral cavity/pharynx/larynx Overall: no masses 06/04/2018 None Full Exam - General 1994 Ears/Nose/Throat oral cavity/pharynx/larynx Oral mucosa: erythroplakia 06/04/2018 None Full Exam - General 1994 Ears/Nose/Throat oral cavity/pharynx/larynx Oral mucosa: thrush 06/04/2018 None Full Exam - General 1994 Respiratory respiratory effort/rhythm Overall: no retractions 06/04/2018 None Full Exam - General 1994 Respiratory respiratory effort/rhythm Overall: normal rate 06/04/2018 None Full Exam - General 1994 Cardiovascular auscultation of heart Overall: regular rate 06/04/2018 None Full Exam - General 1994 Cardiovascular auscultation of heart Overall: normal heart sounds 06/04/2018 None Full Exam - General 1994 Cardiovascular auscultation of heart Overall: no murmurs 06/04/2018 None Full Exam - General 1994 Abdomen abdominal exam Overall: no tenderness 06/04/2018 None Full Exam - General 1994 Abdomen abdominal exam Overall: normal bowel sounds 06/04/2018 None Full Exam - General 1994 Abdomen abdominal exam Contour: rounded 06/04/2018 None Full Exam - General 1994 Musculoskeletal spine, ribs and pelvis Overall: good posture 06/04/2018 None Full Exam - General 1994 Musculoskeletal spine, ribs and pelvis Palpation: tender at greater trochanter 06/04/2018 None Full Exam - General 1994 Neurologic gait Overall: no ataxia, no unsteadiness 06/04/2018 None Full Exam - General 1994 Psychiatric orientation/consciousness Overall: oriented to person, place and time 06/04/2018 None Full Exam - General 1994 Psychiatric mood and affect Overall: normal mood and affect 06/04/2018 None Full Exam - General 1994 Respiratory auscultation Upper lung field: Breath sounds clear 06/04/2018 None Full Exam - General 1994 Respiratory auscultation Lower lung field: crackles 06/04/2018 None Full Exam - General 1994 Constitutional general appearance Overall: well developed 03/27/2018 None Full Exam - General 1994 Constitutional general appearance Overall: in no acute distress 03/27/2018 None Full Exam - General 1994 Constitutional general appearance Overall: well nourished 03/27/2018 None Full Exam - General 1994 Eyes pupils and irises Overall: pupils equal, round, reactive to light and accomodation 03/27/2018 None Full Exam - General 1994 Ears/Nose/Throat otoscopic exam Overall: external auditory canals clear 03/27/2018 None Full Exam - General 1994 Ears/Nose/Throat otoscopic exam Overall: tympanic membranes clear 03/27/2018 None Full Exam - General 1994 Ears/Nose/Throat oral cavity/pharynx/larynx Overall: no masses 03/27/2018 None Full Exam - General 1994 Respiratory auscultation Overall: breath sounds clear bilaterally 03/27/2018 None Full Exam - General 1994 Respiratory respiratory effort/rhythm Overall: no retractions 03/27/2018 None Full Exam - General 1994 Respiratory respiratory effort/rhythm Overall: normal rate 03/27/2018 None Full Exam - General 1994 Cardiovascular auscultation of heart Overall: regular rate 03/27/2018 None Full Exam - General 1994 Cardiovascular auscultation of heart Overall: normal heart sounds 03/27/2018 None Full Exam - General 1994 Cardiovascular auscultation of heart Overall: no murmurs 03/27/2018 None Full Exam - General 1994 Abdomen abdominal exam Overall: no tenderness 03/27/2018 None Full Exam - General 1994 Abdomen abdominal exam Overall: normal bowel sounds 03/27/2018 None Full Exam - General 1994 Abdomen abdominal exam Contour: rounded 03/27/2018 None Full Exam - General 1994 Musculoskeletal spine, ribs and pelvis Overall: good posture 03/27/2018 None Full Exam - General 1994 Neurologic gait Overall: no ataxia, no unsteadiness 03/27/2018 None Full Exam - General 1994 Psychiatric orientation/consciousness Overall: oriented to person, place and time 03/27/2018 None Full Exam - General 1994 Psychiatric mood and affect Overall: normal mood and affect 03/27/2018 None Full Exam - General 1994 Integument inspection of skin Overall: few scattered moles, no gross abnormalities 03/27/2018 None Full Exam - General 1994 Constitutional general appearance Overall: well developed 03/19/2018 None Full Exam - General 1994 Constitutional general appearance Overall: in no acute distress 03/19/2018 None Full Exam - General 1994 Constitutional general appearance Overall: well nourished 03/19/2018 None Full Exam - General 1994 Eyes pupils and irises Overall: pupils equal, round, reactive to light and accomodation 03/19/2018 None Full Exam - General 1994 Ears/Nose/Throat otoscopic exam Overall: external auditory canals clear 03/19/2018 None Full Exam - General 1994 Ears/Nose/Throat otoscopic exam Overall: tympanic membranes clear 03/19/2018 None Full Exam - General 1994 Ears/Nose/Throat oral cavity/pharynx/larynx Overall: no masses 03/19/2018 None Full Exam - General 1994 Respiratory auscultation Overall: breath sounds clear bilaterally 03/19/2018 None Full Exam - General 1994 Respiratory respiratory effort/rhythm Overall: no retractions 03/19/2018 None Full Exam - General 1994 Respiratory respiratory effort/rhythm Overall: normal rate 03/19/2018 None Full Exam - General 1994 Cardiovascular auscultation of heart Overall: regular rate 03/19/2018 None Full Exam - General 1994 Cardiovascular auscultation of heart Overall: normal heart sounds 03/19/2018 None Full Exam - General 1994 Cardiovascular auscultation of heart Overall: no murmurs 03/19/2018 None Full Exam - General 1994 Abdomen abdominal exam Overall: no tenderness 03/19/2018 None Full Exam - General 1994 Abdomen abdominal exam Overall: normal bowel sounds 03/19/2018 None Full Exam - General 1994 Abdomen abdominal exam Contour: rounded 03/19/2018 None Full Exam - General 1994 Musculoskeletal spine, ribs and pelvis Overall: good posture 03/19/2018 None Full Exam - General 1994 Neurologic gait Overall: no ataxia, no unsteadiness 03/19/2018 None Full Exam - General 1994 Psychiatric orientation/consciousness Overall: oriented to person, place and time 03/19/2018 None Full Exam - General 1994 Psychiatric mood and affect Overall: normal mood and affect 03/19/2018 None Full Exam - General 1994 Ears/Nose/Throat oral cavity/pharynx/larynx Oral mucosa: erythroplakia 03/19/2018 None Full Exam - General 1994 Ears/Nose/Throat oral cavity/pharynx/larynx Oral mucosa: thrush 03/19/2018 None Full Exam - General 1994 Musculoskeletal spine, ribs and pelvis Palpation: tender at greater trochanter 03/19/2018 None Full Exam - General 1994 Constitutional general appearance Overall: well developed 01/30/2018 None Full Exam - General 1994 Constitutional general appearance Overall: in no acute distress 01/30/2018 None Full Exam - General 1994 Constitutional general appearance Overall: well nourished 01/30/2018 None Full Exam - General 1994 Eyes pupils and irises Overall: pupils equal, round, reactive to light and accomodation 01/30/2018 None Full Exam - General 1994 Ears/Nose/Throat otoscopic exam Overall: external auditory canals clear 01/30/2018 None Full Exam - General 1994 Ears/Nose/Throat otoscopic exam Overall: tympanic membranes clear 01/30/2018 None Full Exam - General 1994 Ears/Nose/Throat oral cavity/pharynx/larynx Overall: oral mucosa clear 01/30/2018 None Full Exam - General 1994 Ears/Nose/Throat oral cavity/pharynx/larynx Overall: oropharyngeal mucosa clear 01/30/2018 None Full Exam - General 1994 Ears/Nose/Throat oral cavity/pharynx/larynx Overall: no masses 01/30/2018 None Full Exam - General 1994 Respiratory auscultation Overall: breath sounds clear bilaterally 01/30/2018 None Full Exam - General 1994 Respiratory respiratory effort/rhythm Overall: no retractions 01/30/2018 None Full Exam - General 1994 Respiratory respiratory effort/rhythm Overall: normal rate 01/30/2018 None Full Exam - General 1994 Cardiovascular auscultation of heart Overall: regular rate 01/30/2018 None Full Exam - General 1994 Cardiovascular auscultation of heart Overall: normal heart sounds 01/30/2018 None Full Exam - General 1994 Cardiovascular auscultation of heart Overall: no murmurs 01/30/2018 None Full Exam - General 1994 Abdomen abdominal exam Overall: no tenderness 01/30/2018 None Full Exam - General 1994 Abdomen abdominal exam Overall: normal bowel sounds 01/30/2018 None Full Exam - General 1994 Abdomen abdominal exam Contour: rounded 01/30/2018 None Full Exam - General 1994 Musculoskeletal digits and nails Overall: no clubbing 01/30/2018 None Full Exam - General 1994 Musculoskeletal digits and nails Overall: digits benign 01/30/2018 None Full Exam - General 1994 Musculoskeletal spine, ribs and pelvis Overall: sacroiliac joint benign 01/30/2018 None Full Exam - General 1994 Musculoskeletal spine, ribs and pelvis Posture: lordosis 01/30/2018 None Full Exam - General 1994 Musculoskeletal gait and station Overall: normal gait 01/30/2018 None Full Exam - General 1994 Musculoskeletal gait and station Overall: normal station 01/30/2018 None Full Exam - General 1994 Neurologic gait Overall: no ataxia, no unsteadiness 01/30/2018 None Full Exam - General 1994 Psychiatric orientation/consciousness Overall: oriented to person, place and time 01/30/2018 None Full Exam - General 1994 Psychiatric mood and affect Overall: normal mood and affect 01/30/2018 None Full Exam - General 1994 Constitutional general appearance Overall: well developed 12/26/2017 None Full Exam - General 1994 Constitutional general appearance Overall: in no acute distress 12/26/2017 None Full Exam - General 1994 Constitutional general appearance Overall: well nourished 12/26/2017 None Full Exam - General 1994 Eyes pupils and irises Overall: pupils equal, round, reactive to light and accomodation 12/26/2017 None Full Exam - General 1994 Ears/Nose/Throat otoscopic exam Overall: external auditory canals clear 12/26/2017 None Full Exam - General 1994 Ears/Nose/Throat otoscopic exam Overall: tympanic membranes clear 12/26/2017 None Full Exam - General 1994 Ears/Nose/Throat oral cavity/pharynx/larynx Overall: oral mucosa clear 12/26/2017 None Full Exam - General 1994 Ears/Nose/Throat oral cavity/pharynx/larynx Overall: oropharyngeal mucosa clear 12/26/2017 None Full Exam - General 1994 Ears/Nose/Throat oral cavity/pharynx/larynx Overall: no masses 12/26/2017 None Full Exam - General 1994 Respiratory auscultation Overall: breath sounds clear bilaterally 12/26/2017 None Full Exam - General 1994 Respiratory respiratory effort/rhythm Overall: no retractions 12/26/2017 None Full Exam - General 1994 Respiratory respiratory effort/rhythm Overall: normal rate 12/26/2017 None Full Exam - General 1994 Cardiovascular auscultation of heart Overall: regular rate 12/26/2017 None Full Exam - General 1994 Cardiovascular auscultation of heart Overall: normal heart sounds 12/26/2017 None Full Exam - General 1994 Cardiovascular auscultation of heart Overall: no murmurs 12/26/2017 None Full Exam - General 1994 Abdomen abdominal exam Overall: no tenderness 12/26/2017 None Full Exam - General 1994 Abdomen abdominal exam Overall: normal bowel sounds 12/26/2017 None Full Exam - General 1994 Abdomen abdominal exam Contour: rounded 12/26/2017 None Full Exam - General 1994 Musculoskeletal digits and nails Overall: no clubbing 12/26/2017 None Full Exam - General 1994 Musculoskeletal digits and nails Overall: digits benign 12/26/2017 None Full Exam - General 1994 Musculoskeletal spine, ribs and pelvis Overall: sacroiliac joint benign 12/26/2017 None Full Exam - General 1994 Musculoskeletal spine, ribs and pelvis Posture: lordosis 12/26/2017 None Full Exam - General 1994 Musculoskeletal gait and station Overall: normal gait 12/26/2017 None Full Exam - General 1994 Musculoskeletal gait and station Overall: normal station 12/26/2017 None Full Exam - General 1994 Neurologic gait Overall: no ataxia, no unsteadiness 12/26/2017 None Full Exam - General 1994 Psychiatric orientation/consciousness Overall: oriented to person, place and time 12/26/2017 None Full Exam - General 1994 Psychiatric mood and affect Overall: normal mood and affect 12/26/2017 None Full Exam - General 1994 Constitutional general appearance Overall: well developed 11/21/2017 None Full Exam - General 1994 Constitutional general appearance Overall: in no acute distress 11/21/2017 None Full Exam - General 1994 Constitutional general appearance Overall: well nourished 11/21/2017 None Full Exam - General 1994 Eyes conjunctiva/eyelids Overall: conjunctiva clear 11/21/2017 None Full Exam - General 1994 Eyes conjunctiva/eyelids Overall: cornea clear 11/21/2017 None Full Exam - General 1994 Eyes conjunctiva/eyelids Overall: eyelids normal 11/21/2017 None Full Exam - General 1994 Eyes pupils and irises Overall: pupils equal, round, reactive to light and accomodation 11/21/2017 None Full Exam - General 1994 Ears/Nose/Throat otoscopic exam Overall: external auditory canals clear 11/21/2017 None Full Exam - General 1994 Ears/Nose/Throat otoscopic exam Overall: tympanic membranes clear 11/21/2017 None Full Exam - General 1994 Ears/Nose/Throat lips/teeth/gingiva Overall: benign lips 11/21/2017 None Full Exam - General 1994 Ears/Nose/Throat oral cavity/pharynx/larynx Overall: oral mucosa clear 11/21/2017 None Full Exam - General 1994 Ears/Nose/Throat oral cavity/pharynx/larynx Overall: oropharyngeal mucosa clear 11/21/2017 None Full Exam - General 1994 Respiratory respiratory effort/rhythm Overall: no retractions 11/21/2017 None Full Exam - General 1994 Respiratory respiratory effort/rhythm Overall: normal rate 11/21/2017 None Full Exam - General 1994 Respiratory auscultation Overall: breath sounds clear bilaterally 11/21/2017 None Full Exam - General 1994 Cardiovascular auscultation of heart Overall: regular rate 11/21/2017 None Full Exam - General 1994 Cardiovascular auscultation of heart Overall: normal heart sounds 11/21/2017 None Full Exam - General 1994 Abdomen abdominal exam Overall: normal bowel sounds 11/21/2017 None Full Exam - General 1994 Abdomen abdominal exam Overall: no tenderness 11/21/2017 None Full Exam - General 1994 Musculoskeletal head and neck Overall: head atraumatic 11/21/2017 None Full Exam - General 1994 Musculoskeletal gait and station Overall: normal station 11/21/2017 None Full Exam - General 1994 Musculoskeletal gait and station Overall: normal gait 11/21/2017 None Full Exam - General 1994 Neurologic cranial nerves Overall: crainial nerves 2 - 12 grossly intact 11/21/2017 None Full Exam - General 1994 Psychiatric orientation/consciousness Overall: oriented to person, place and time 11/21/2017 None Full Exam - General 1994 Psychiatric mood and affect Overall: normal mood and affect 11/21/2017 None Full Exam - General 1994 Psychiatric appearance Overall: well-groomed, good eye contact 11/21/2017 None Full Exam - General 1994 Constitutional general appearance Overall: well developed 10/19/2017 None Full Exam - General 1994 Constitutional general appearance Overall: in no acute distress 10/19/2017 None Full Exam - General 1994 Constitutional general appearance Overall: well nourished 10/19/2017 None Full Exam - General 1994 Eyes pupils and irises Overall: pupils equal, round, reactive to light and accomodation 10/19/2017 None Full Exam - General 1994 Ears/Nose/Throat otoscopic exam Overall: external auditory canals clear 10/19/2017 None Full Exam - General 1994 Ears/Nose/Throat otoscopic exam Overall: tympanic membranes clear 10/19/2017 None Full Exam - General 1994 Ears/Nose/Throat oral cavity/pharynx/larynx Overall: oral mucosa clear 10/19/2017 None Full Exam - General 1994 Ears/Nose/Throat oral cavity/pharynx/larynx Overall: oropharyngeal mucosa clear 10/19/2017 None Full Exam - General 1994 Ears/Nose/Throat oral cavity/pharynx/larynx Overall: no masses 10/19/2017 None Full Exam - General 1994 Respiratory auscultation Overall: breath sounds clear bilaterally 10/19/2017 None Full Exam - General 1994 Respiratory respiratory effort/rhythm Overall: no retractions 10/19/2017 None Full Exam - General 1994 Respiratory respiratory effort/rhythm Overall: normal rate 10/19/2017 None Full Exam - General 1994 Cardiovascular auscultation of heart Overall: regular rate 10/19/2017 None Full Exam - General 1994 Cardiovascular auscultation of heart Overall: normal heart sounds 10/19/2017 None Full Exam - General 1994 Cardiovascular auscultation of heart Overall: no murmurs 10/19/2017 None Full Exam - General 1994 Abdomen abdominal exam Overall: no tenderness 10/19/2017 None Full Exam - General 1994 Abdomen abdominal exam Overall: normal bowel sounds 10/19/2017 None Full Exam - General 1994 Abdomen abdominal exam Contour: rounded 10/19/2017 None Full Exam - General 1994 Musculoskeletal digits and nails Overall: no clubbing 10/19/2017 None Full Exam - General 1994 Musculoskeletal digits and nails Overall: digits benign 10/19/2017 None Full Exam - General 1994 Musculoskeletal spine, ribs and pelvis Overall: spine benign 10/19/2017 None Full Exam - General 1994 Musculoskeletal spine, ribs and pelvis Overall: sacroiliac joint benign 10/19/2017 None Full Exam - General 1994 Musculoskeletal spine, ribs and pelvis Overall: good posture 10/19/2017 None Full Exam - General 1994 Musculoskeletal gait and station Overall: normal gait 10/19/2017 None Full Exam - General 1994 Musculoskeletal gait and station Overall: normal station 10/19/2017 None Full Exam - General 1994 Neurologic gait Overall: no ataxia, no unsteadiness 10/19/2017 None Full Exam - General 1994 Psychiatric orientation/consciousness Overall: oriented to person, place and time 10/19/2017 None Full Exam - General 1994 Psychiatric mood and affect Overall: normal mood and affect 10/19/2017 None Full Exam - General 1994 Constitutional general appearance Overall: well developed 09/18/2017 None Full Exam - General 1994 Constitutional general appearance Overall: in no acute distress 09/18/2017 None Full Exam - General 1994 Constitutional general appearance Overall: well nourished 09/18/2017 None Full Exam - General 1994 Eyes pupils and irises Overall: pupils equal, round, reactive to light and accomodation 09/18/2017 None Full Exam - General 1994 Ears/Nose/Throat otoscopic exam Overall: external auditory canals clear 09/18/2017 None Full Exam - General 1994 Ears/Nose/Throat otoscopic exam Overall: tympanic membranes clear 09/18/2017 None Full Exam - General 1994 Ears/Nose/Throat oral cavity/pharynx/larynx Overall: oral mucosa clear 09/18/2017 None Full Exam - General 1994 Ears/Nose/Throat oral cavity/pharynx/larynx Overall: oropharyngeal mucosa clear 09/18/2017 None Full Exam - General 1994 Ears/Nose/Throat oral cavity/pharynx/larynx Overall: no masses 09/18/2017 None Full Exam - General 1994 Respiratory auscultation Overall: breath sounds clear bilaterally 09/18/2017 None Full Exam - General 1994 Respiratory respiratory effort/rhythm Overall: no retractions 09/18/2017 None Full Exam - General 1994 Respiratory respiratory effort/rhythm Overall: normal rate 09/18/2017 None Full Exam - General 1994 Cardiovascular auscultation of heart Overall: regular rate 09/18/2017 None Full Exam - General 1994 Cardiovascular auscultation of heart Overall: normal heart sounds 09/18/2017 None Full Exam - General 1994 Cardiovascular auscultation of heart Overall: no murmurs 09/18/2017 None Full Exam - General 1994 Abdomen abdominal exam Overall: no tenderness 09/18/2017 None Full Exam - General 1994 Abdomen abdominal exam Overall: normal bowel sounds 09/18/2017 None Full Exam - General 1994 Abdomen abdominal exam Contour: rounded 09/18/2017 None Full Exam - General 1994 Musculoskeletal digits and nails Overall: no clubbing 09/18/2017 None Full Exam - General 1994 Musculoskeletal digits and nails Overall: digits benign 09/18/2017 None Full Exam - General 1994 Musculoskeletal spine, ribs and pelvis Overall: spine benign 09/18/2017 None Full Exam - General 1994 Musculoskeletal spine, ribs and pelvis Overall: sacroiliac joint benign 09/18/2017 None Full Exam - General 1994 Musculoskeletal spine, ribs and pelvis Overall: good posture 09/18/2017 None Full Exam - General 1994 Musculoskeletal gait and station Overall: normal gait 09/18/2017 None Full Exam - General 1994 Musculoskeletal gait and station Overall: normal station 09/18/2017 None Full Exam - General 1994 Neurologic gait Overall: no ataxia, no unsteadiness 09/18/2017 None Full Exam - General 1994 Psychiatric orientation/consciousness Overall: oriented to person, place and time 09/18/2017 None Full Exam - General 1994 Psychiatric mood and affect Overall: normal mood and affect 09/18/2017 None Full Exam - General 1994 Constitutional general appearance Overall: well developed 07/21/2017 None Full Exam - General 1994 Constitutional general appearance Overall: in no acute distress 07/21/2017 None Full Exam - General 1994 Constitutional general appearance Overall: well nourished 07/21/2017 None Full Exam - General 1994 Eyes pupils and irises Overall: pupils equal, round, reactive to light and accomodation 07/21/2017 None Full Exam - General 1994 Ears/Nose/Throat otoscopic exam Overall: external auditory canals clear 07/21/2017 None Full Exam - General 1994 Ears/Nose/Throat otoscopic exam Overall: tympanic membranes clear 07/21/2017 None Full Exam - General 1994 Ears/Nose/Throat oral cavity/pharynx/larynx Overall: oral mucosa clear 07/21/2017 None Full Exam - General 1994 Ears/Nose/Throat oral cavity/pharynx/larynx Overall: oropharyngeal mucosa clear 07/21/2017 None Full Exam - General 1994 Ears/Nose/Throat oral cavity/pharynx/larynx Overall: no masses 07/21/2017 None Full Exam - General 1994 Respiratory auscultation Overall: breath sounds clear bilaterally 07/21/2017 None Full Exam - General 1994 Respiratory respiratory effort/rhythm Overall: no retractions 07/21/2017 None Full Exam - General 1994 Respiratory respiratory effort/rhythm Overall: normal rate 07/21/2017 None Full Exam - General 1994 Cardiovascular auscultation of heart Overall: regular rate 07/21/2017 None Full Exam - General 1994 Cardiovascular auscultation of heart Overall: normal heart sounds 07/21/2017 None Full Exam - General 1994 Cardiovascular auscultation of heart Overall: no murmurs 07/21/2017 None Full Exam - General 1994 Abdomen abdominal exam Overall: no tenderness 07/21/2017 None Full Exam - General 1994 Abdomen abdominal exam Overall: normal bowel sounds 07/21/2017 None Full Exam - General 1994 Abdomen abdominal exam Contour: rounded 07/21/2017 None Full Exam - General 1994 Musculoskeletal digits and nails Overall: no clubbing 07/21/2017 None Full Exam - General 1994 Musculoskeletal digits and nails Overall: digits benign 07/21/2017 None Full Exam - General 1994 Musculoskeletal spine, ribs and pelvis Overall: spine benign 07/21/2017 None Full Exam - General 1994 Musculoskeletal spine, ribs and pelvis Overall: sacroiliac joint benign 07/21/2017 None Full Exam - General 1994 Musculoskeletal spine, ribs and pelvis Overall: good posture 07/21/2017 None Full Exam - General 1994 Musculoskeletal gait and station Overall: normal gait 07/21/2017 None Full Exam - General 1994 Musculoskeletal gait and station Overall: normal station 07/21/2017 None Full Exam - General 1994 Neurologic gait Overall: no ataxia, no unsteadiness 07/21/2017 None Full Exam - General 1994 Psychiatric orientation/consciousness Overall: oriented to person, place and time 07/21/2017 None Full Exam - General 1994 Psychiatric mood and affect Overall: normal mood and affect 07/21/2017 None Full Exam - General 1994 Constitutional general appearance Overall: well developed 05/04/2017 None Full Exam - General 1994 Constitutional general appearance Overall: in no acute distress 05/04/2017 None Full Exam - General 1994 Constitutional general appearance Overall: well nourished 05/04/2017 None Full Exam - General 1994 Eyes pupils and irises Overall: pupils equal, round, reactive to light and accomodation 05/04/2017 None Full Exam - General 1994 Ears/Nose/Throat otoscopic exam Overall: external auditory canals clear 05/04/2017 None Full Exam - General 1994 Ears/Nose/Throat otoscopic exam Overall: tympanic membranes clear 05/04/2017 None Full Exam - General 1994 Ears/Nose/Throat oral cavity/pharynx/larynx Overall: oral mucosa clear 05/04/2017 None Full Exam - General 1994 Ears/Nose/Throat oral cavity/pharynx/larynx Overall: oropharyngeal mucosa clear 05/04/2017 None Full Exam - General 1994 Ears/Nose/Throat oral cavity/pharynx/larynx Overall: no masses 05/04/2017 None Full Exam - General 1994 Respiratory auscultation Overall: breath sounds clear bilaterally 05/04/2017 None Full Exam - General 1994 Respiratory respiratory effort/rhythm Overall: no retractions 05/04/2017 None Full Exam - General 1994 Respiratory respiratory effort/rhythm Overall: normal rate 05/04/2017 None Full Exam - General 1994 Cardiovascular auscultation of heart Overall: regular rate 05/04/2017 None Full Exam - General 1994 Cardiovascular auscultation of heart Overall: normal heart sounds 05/04/2017 None Full Exam - General 1994 Cardiovascular auscultation of heart Overall: no murmurs 05/04/2017 None Full Exam - General 1994 Abdomen abdominal exam Overall: no tenderness 05/04/2017 None Full Exam - General 1994 Abdomen abdominal exam Overall: normal bowel sounds 05/04/2017 None Full Exam - General 1994 Abdomen abdominal exam Contour: rounded 05/04/2017 None Full Exam - General 1994 Musculoskeletal digits and nails Overall: no clubbing 05/04/2017 None Full Exam - General 1994 Musculoskeletal digits and nails Overall: digits benign 05/04/2017 None Full Exam - General 1994 Musculoskeletal spine, ribs and pelvis Overall: spine benign 05/04/2017 None Full Exam - General 1994 Musculoskeletal spine, ribs and pelvis Overall: sacroiliac joint benign 05/04/2017 None Full Exam - General 1994 Musculoskeletal spine, ribs and pelvis Overall: good posture 05/04/2017 None Full Exam - General 1994 Musculoskeletal gait and station Overall: normal gait 05/04/2017 None Full Exam - General 1994 Musculoskeletal gait and station Overall: normal station 05/04/2017 None Full Exam - General 1994 Neurologic gait Overall: no ataxia, no unsteadiness 05/04/2017 None Full Exam - General 1994 Psychiatric orientation/consciousness Overall: oriented to person, place and time 05/04/2017 None Full Exam - General 1994 Psychiatric mood and affect Overall: normal mood and affect 05/04/2017 None Full Exam - General 1994 Constitutional general appearance Overall: well developed 03/30/2017 None Full Exam - General 1994 Constitutional general appearance Overall: in no acute distress 03/30/2017 None Full Exam - General 1994 Constitutional general appearance Overall: well nourished 03/30/2017 None Full Exam - General 1994 Eyes pupils and irises Overall: pupils equal, round, reactive to light and accomodation 03/30/2017 None Full Exam - General 1994 Ears/Nose/Throat oral cavity/pharynx/larynx Overall: oral mucosa clear 03/30/2017 None Full Exam - General 1994 Ears/Nose/Throat oral cavity/pharynx/larynx Overall: oropharyngeal mucosa clear 03/30/2017 None Full Exam - General 1994 Ears/Nose/Throat oral cavity/pharynx/larynx Overall: no masses 03/30/2017 None Full Exam - General 1994 Respiratory auscultation Overall: breath sounds clear bilaterally 03/30/2017 None Full Exam - General 1994 Respiratory respiratory effort/rhythm Overall: no retractions 03/30/2017 None Full Exam - General 1994 Respiratory respiratory effort/rhythm Overall: normal rate 03/30/2017 None Full Exam - General 1994 Cardiovascular auscultation of heart Overall: regular rate 03/30/2017 None Full Exam - General 1994 Cardiovascular auscultation of heart Overall: normal heart sounds 03/30/2017 None Full Exam - General 1994 Cardiovascular auscultation of heart Overall: no murmurs 03/30/2017 None Full Exam - General 1994 Abdomen abdominal exam Contour: rounded 03/30/2017 None Full Exam - General 1994 Psychiatric orientation/consciousness Overall: oriented to person, place and time 03/30/2017 None Full Exam - General 1994 Psychiatric mood and affect Overall: normal mood and affect 03/30/2017 None Full Exam - General 1994 Constitutional general appearance Overall: well developed 03/02/2017 None Full Exam - General 1994 Constitutional general appearance Overall: in no acute distress 03/02/2017 None Full Exam - General 1994 Constitutional general appearance Overall: well nourished 03/02/2017 None Full Exam - General 1994 Eyes pupils and irises Overall: pupils equal, round, reactive to light and accomodation 03/02/2017 None Full Exam - General 1994 Ears/Nose/Throat otoscopic exam Overall: external auditory canals clear 03/02/2017 None Full Exam - General 1994 Ears/Nose/Throat otoscopic exam Overall: tympanic membranes clear 03/02/2017 None Full Exam - General 1994 Ears/Nose/Throat oral cavity/pharynx/larynx Overall: oral mucosa clear 03/02/2017 None Full Exam - General 1994 Ears/Nose/Throat oral cavity/pharynx/larynx Overall: oropharyngeal mucosa clear 03/02/2017 None Full Exam - General 1994 Ears/Nose/Throat oral cavity/pharynx/larynx Overall: no masses 03/02/2017 None Full Exam - General 1994 Respiratory auscultation Overall: breath sounds clear bilaterally 03/02/2017 None Full Exam - General 1994 Respiratory respiratory effort/rhythm Overall: no retractions 03/02/2017 None Full Exam - General 1994 Respiratory respiratory effort/rhythm Overall: normal rate 03/02/2017 None Full Exam - General 1994 Cardiovascular auscultation of heart Overall: regular rate 03/02/2017 None Full Exam - General 1994 Cardiovascular auscultation of heart Overall: normal heart sounds 03/02/2017 None Full Exam - General 1994 Cardiovascular auscultation of heart Overall: no murmurs 03/02/2017 None Full Exam - General 1994 Abdomen abdominal exam Overall: no tenderness 03/02/2017 None Full Exam - General 1994 Abdomen abdominal exam Overall: normal bowel sounds 03/02/2017 None Full Exam - General 1994 Abdomen abdominal exam Contour: rounded 03/02/2017 None Full Exam - General 1994 Musculoskeletal digits and nails Overall: no clubbing 03/02/2017 None Full Exam - General 1994 Musculoskeletal digits and nails Overall: digits benign 03/02/2017 None Full Exam - General 1994 Musculoskeletal spine, ribs and pelvis Overall: sacroiliac joint benign 03/02/2017 None Full Exam - General 1994 Musculoskeletal spine, ribs and pelvis Posture: lordosis 03/02/2017 None Full Exam - General 1994 Musculoskeletal gait and station Overall: normal gait 03/02/2017 None Full Exam - General 1994 Musculoskeletal gait and station Overall: normal station 03/02/2017 None Full Exam - General 1994 Neurologic gait Overall: no ataxia, no unsteadiness 03/02/2017 None Full Exam - General 1994 Psychiatric orientation/consciousness Overall: oriented to person, place and time 03/02/2017 None Full Exam - General 1994 Psychiatric mood and affect Overall: normal mood and affect 03/02/2017 None Full Exam - General 1994 Constitutional general appearance Overall: well developed 01/31/2017 None Full Exam - General 1994 Constitutional general appearance Overall: in no acute distress 01/31/2017 None Full Exam - General 1994 Constitutional general appearance Overall: well nourished 01/31/2017 None Full Exam - General 1994 Eyes pupils and irises Overall: pupils equal, round, reactive to light and accomodation 01/31/2017 None Full Exam - General 1994 Ears/Nose/Throat otoscopic exam Overall: external auditory canals clear 01/31/2017 None Full Exam - General 1994 Ears/Nose/Throat otoscopic exam Overall: tympanic membranes clear 01/31/2017 None Full Exam - General 1994 Ears/Nose/Throat oral cavity/pharynx/larynx Overall: oral mucosa clear 01/31/2017 None Full Exam - General 1994 Ears/Nose/Throat oral cavity/pharynx/larynx Overall: oropharyngeal mucosa clear 01/31/2017 None Full Exam - General 1995 Ears/Nose/Throat oral cavity/pharynx/larynx Overall: no masses 01/31/2017 None Full Exam - General 1994 Respiratory auscultation Overall: breath sounds clear bilaterally 01/31/2017 None Full Exam - General 1994 Respiratory respiratory effort/rhythm Overall: no retractions 01/31/2017 None Full Exam - General 1994 Respiratory respiratory effort/rhythm Overall: normal rate 01/31/2017 None Full Exam - General 1994 Cardiovascular auscultation of heart Overall: regular rate 01/31/2017 None Full Exam - General 1994 Cardiovascular auscultation of heart Overall: normal heart sounds 01/31/2017 None Full Exam - General 1994 Cardiovascular auscultation of heart Overall: no murmurs 01/31/2017 None Full Exam - General 1994 Abdomen abdominal exam Overall: no tenderness 01/31/2017 None Full Exam - General 1994 Abdomen abdominal exam Overall: normal bowel sounds 01/31/2017 None Full Exam - General 1994 Abdomen abdominal exam Contour: rounded 01/31/2017 None Full Exam - General 1994 Musculoskeletal digits and nails Overall: no clubbing 01/31/2017 None Full Exam - General 1994 Musculoskeletal digits and nails Overall: digits benign 01/31/2017 None Full Exam - General 1994 Musculoskeletal spine, ribs and pelvis Overall: spine benign 01/31/2017 None Full Exam - General 1994 Musculoskeletal spine, ribs and pelvis Overall: sacroiliac joint benign 01/31/2017 None Full Exam - General 1994 Musculoskeletal spine, ribs and pelvis Overall: good posture 01/31/2017 None Full Exam - General 1994 Musculoskeletal gait and station Overall: normal gait 01/31/2017 None Full Exam - General 1994 Musculoskeletal gait and station Overall: normal station 01/31/2017 None Full Exam - General 1994 Neurologic gait Overall: no ataxia, no unsteadiness 01/31/2017 None Full Exam - General 1994 Psychiatric orientation/consciousness Overall: oriented to person, place and time 01/31/2017 None Full Exam - General 1994 Psychiatric mood and affect Overall: normal mood and affect 01/31/2017 None Full Exam - General 1994 Constitutional general appearance Overall: well developed 10/25/2016 None Full Exam - General 1994 Constitutional general appearance Overall: in no acute distress 10/25/2016 None Full Exam - General 1994 Constitutional general appearance Overall: well nourished 10/25/2016 None Full Exam - General 1994 Eyes pupils and irises Overall: pupils equal, round, reactive to light and accomodation 10/25/2016 None Full Exam - General 1994 Ears/Nose/Throat otoscopic exam Overall: external auditory canals clear 10/25/2016 None Full Exam - General 1994 Ears/Nose/Throat otoscopic exam Overall: tympanic membranes clear 10/25/2016 None Full Exam - General 1994 Ears/Nose/Throat oral cavity/pharynx/larynx Overall: oral mucosa clear 10/25/2016 None Full Exam - General 1994 Ears/Nose/Throat oral cavity/pharynx/larynx Overall: oropharyngeal mucosa clear 10/25/2016 None Full Exam - General 1994 Ears/Nose/Throat oral cavity/pharynx/larynx Overall: no masses 10/25/2016 None Full Exam - General 1994 Respiratory auscultation Overall: breath sounds clear bilaterally 10/25/2016 None Full Exam - General 1994 Respiratory respiratory effort/rhythm Overall: no retractions 10/25/2016 None Full Exam - General 1994 Respiratory respiratory effort/rhythm Overall: normal rate 10/25/2016 None Full Exam - General 1994 Cardiovascular auscultation of heart Overall: regular rate 10/25/2016 None Full Exam - General 1994 Cardiovascular auscultation of heart Overall: normal heart sounds 10/25/2016 None Full Exam - General 1994 Cardiovascular auscultation of heart Overall: no murmurs 10/25/2016 None Full Exam - General 1994 Abdomen abdominal exam Overall: no tenderness 10/25/2016 None Full Exam - General 1994 Abdomen abdominal exam Overall: normal bowel sounds 10/25/2016 None Full Exam - General 1994 Abdomen abdominal exam Contour: rounded 10/25/2016 None Full Exam - General 1994 Musculoskeletal digits and nails Overall: no clubbing 10/25/2016 None Full Exam - General 1994 Musculoskeletal digits and nails Overall: digits benign 10/25/2016 None Full Exam - General 1994 Musculoskeletal spine, ribs and pelvis Overall: sacroiliac joint benign 10/25/2016 None Full Exam - General 1994 Musculoskeletal spine, ribs and pelvis Posture: lordosis 10/25/2016 None Full Exam - General 1994 Musculoskeletal gait and station Overall: normal gait 10/25/2016 None Full Exam - General 1994 Musculoskeletal gait and station Overall: normal station 10/25/2016 None Full Exam - General 1994 Neurologic gait Overall: no ataxia, no unsteadiness 10/25/2016 None Full Exam - General 1994 Psychiatric orientation/consciousness Overall: oriented to person, place and time 10/25/2016 None Full Exam - General 1994 Psychiatric mood and affect Overall: normal mood and affect 10/25/2016 None Full Exam - General 1994 Constitutional general appearance Overall: well developed 07/27/2016 None Full Exam - General 1994 Constitutional general appearance Overall: in no acute distress 07/27/2016 None Full Exam - General 1994 Constitutional general appearance Overall: well nourished 07/27/2016 None Full Exam - General 1994 Eyes pupils and irises Overall: pupils equal, round, reactive to light and accomodation 07/27/2016 None Full Exam - General 1994 Ears/Nose/Throat otoscopic exam Overall: external auditory canals clear 07/27/2016 None Full Exam - General 1994 Ears/Nose/Throat otoscopic exam Overall: tympanic membranes clear 07/27/2016 None Full Exam - General 1994 Ears/Nose/Throat oral cavity/pharynx/larynx Overall: oral mucosa clear 07/27/2016 None Full Exam - General 1994 Ears/Nose/Throat oral cavity/pharynx/larynx Overall: oropharyngeal mucosa clear 07/27/2016 None Full Exam - General 1994 Ears/Nose/Throat oral cavity/pharynx/larynx Overall: no masses 07/27/2016 None Full Exam - General 1994 Respiratory auscultation Overall: breath sounds clear bilaterally 07/27/2016 None Full Exam - General 1994 Respiratory respiratory effort/rhythm Overall: no retractions 07/27/2016 None Full Exam - General 1994 Respiratory respiratory effort/rhythm Overall: normal rate 07/27/2016 None Full Exam - General 1994 Cardiovascular auscultation of heart Overall: regular rate 07/27/2016 None Full Exam - General 1994 Cardiovascular auscultation of heart Overall: normal heart sounds 07/27/2016 None Full Exam - General 1994 Cardiovascular auscultation of heart Overall: no murmurs 07/27/2016 None Full Exam - General 1994 Abdomen abdominal exam Overall: no tenderness 07/27/2016 None Full Exam - General 1994 Abdomen abdominal exam Overall: normal bowel sounds 07/27/2016 None Full Exam - General 1994 Abdomen abdominal exam Contour: rounded 07/27/2016 None Full Exam - General 1994 Musculoskeletal digits and nails Overall: no clubbing 07/27/2016 None Full Exam - General 1994 Musculoskeletal digits and nails Overall: digits benign 07/27/2016 None Full Exam - General 1994 Musculoskeletal spine, ribs and pelvis Overall: sacroiliac joint benign 07/27/2016 None Full Exam - General 1994 Musculoskeletal spine, ribs and pelvis Posture: lordosis 07/27/2016 None Full Exam - General 1994 Musculoskeletal gait and station Overall: normal gait 07/27/2016 None Full Exam - General 1994 Musculoskeletal gait and station Overall: normal station 07/27/2016 None Full Exam - General 1994 Neurologic gait Overall: no ataxia, no unsteadiness 07/27/2016 None Full Exam - General 1994 Psychiatric orientation/consciousness Overall: oriented to person, place and time 07/27/2016 None Full Exam - General 1994 Psychiatric mood and affect Overall: normal mood and affect 07/27/2016 None Full Exam - General 1994 Constitutional general appearance Overall: well developed 05/26/2016 None Full Exam - General 1994 Constitutional general appearance Overall: in no acute distress 05/26/2016 None Full Exam - General 1994 Constitutional general appearance Overall: well nourished 05/26/2016 None Full Exam - General 1994 Eyes pupils and irises Overall: pupils equal, round, reactive to light and accomodation 05/26/2016 None Full Exam - General 1994 Ears/Nose/Throat otoscopic exam Overall: external auditory canals clear 05/26/2016 None Full Exam - General 1994 Ears/Nose/Throat otoscopic exam Overall: tympanic membranes clear 05/26/2016 None Full Exam - General 1994 Ears/Nose/Throat oral cavity/pharynx/larynx Overall: oral mucosa clear 05/26/2016 None Full Exam - General 1994 Ears/Nose/Throat oral cavity/pharynx/larynx Overall: oropharyngeal mucosa clear 05/26/2016 None Full Exam - General 1994 Ears/Nose/Throat oral cavity/pharynx/larynx Overall: no masses 05/26/2016 None Full Exam - General 1994 Respiratory auscultation Overall: breath sounds clear bilaterally 05/26/2016 None Full Exam - General 1994 Respiratory respiratory effort/rhythm Overall: no retractions 05/26/2016 None Full Exam - General 1994 Respiratory respiratory effort/rhythm Overall: normal rate 05/26/2016 None Full Exam - General 1994 Cardiovascular auscultation of heart Overall: regular rate 05/26/2016 None Full Exam - General 1994 Cardiovascular auscultation of heart Overall: normal heart sounds 05/26/2016 None Full Exam - General 1994 Cardiovascular auscultation of heart Overall: no murmurs 05/26/2016 None Full Exam - General 1994 Abdomen abdominal exam Overall: no tenderness 05/26/2016 None Full Exam - General 1994 Abdomen abdominal exam Overall: normal bowel sounds 05/26/2016 None Full Exam - General 1994 Abdomen abdominal exam Contour: rounded 05/26/2016 None Full Exam - General 1994 Musculoskeletal digits and nails Overall: no clubbing 05/26/2016 None Full Exam - General 1994 Musculoskeletal digits and nails Overall: digits benign 05/26/2016 None Full Exam - General 1994 Musculoskeletal spine, ribs and pelvis Overall: sacroiliac joint benign 05/26/2016 None Full Exam - General 1994 Musculoskeletal spine, ribs and pelvis Posture: lordosis 05/26/2016 None Full Exam - General 1994 Musculoskeletal gait and station Overall: normal gait 05/26/2016 None Full Exam - General 1994 Musculoskeletal gait and station Overall: normal station 05/26/2016 None Full Exam - General 1994 Neurologic gait Overall: no ataxia, no unsteadiness 05/26/2016 None Full Exam - General 1994 Psychiatric orientation/consciousness Overall: oriented to person, place and time 05/26/2016 None Full Exam - General 1994 Psychiatric mood and affect Overall: normal mood and affect 05/26/2016 None Full Exam - General 1994 Constitutional general appearance Overall: well developed 05/12/2016 None Full Exam - General 1994 Constitutional general appearance Overall: in no acute distress 05/12/2016 None Full Exam - General 1994 Constitutional general appearance Overall: well nourished 05/12/2016 None Full Exam - General 1994 Eyes pupils and irises Overall: pupils equal, round, reactive to light and accomodation 05/12/2016 None Full Exam - General 1994 Ears/Nose/Throat otoscopic exam Overall: external auditory canals clear 05/12/2016 None Full Exam - General 1994 Ears/Nose/Throat otoscopic exam Overall: tympanic membranes clear 05/12/2016 None Full Exam - General 1994 Ears/Nose/Throat oral cavity/pharynx/larynx Overall: oral mucosa clear 05/12/2016 None Full Exam - General 1994 Ears/Nose/Throat oral cavity/pharynx/larynx Overall: oropharyngeal mucosa clear 05/12/2016 None Full Exam - General 1994 Ears/Nose/Throat oral cavity/pharynx/larynx Overall: no masses 05/12/2016 None Full Exam - General 1994 Respiratory auscultation Overall: breath sounds clear bilaterally 05/12/2016 None Full Exam - General 1994 Respiratory respiratory effort/rhythm Overall: no retractions 05/12/2016 None Full Exam - General 1994 Respiratory respiratory effort/rhythm Overall: normal rate 05/12/2016 None Full Exam - General 1994 Cardiovascular auscultation of heart Overall: regular rate 05/12/2016 None Full Exam - General 1994 Cardiovascular auscultation of heart Overall: normal heart sounds 05/12/2016 None Full Exam - General 1994 Cardiovascular auscultation of heart Overall: no murmurs 05/12/2016 None Full Exam - General 1994 Abdomen abdominal exam Overall: no tenderness 05/12/2016 None Full Exam - General 1994 Abdomen abdominal exam Overall: normal bowel sounds 05/12/2016 None Full Exam - General 1994 Abdomen abdominal exam Contour: rounded 05/12/2016 None Full Exam - General 1994 Musculoskeletal digits and nails Overall: no clubbing 05/12/2016 None Full Exam - General 1994 Musculoskeletal digits and nails Overall: digits benign 05/12/2016 None Full Exam - General 1994 Musculoskeletal spine, ribs and pelvis Overall: sacroiliac joint benign 05/12/2016 None Full Exam - General 1994 Musculoskeletal spine, ribs and pelvis Posture: lordosis 05/12/2016 None Full Exam - General 1994 Musculoskeletal gait and station Overall: normal gait 05/12/2016 None Full Exam - General 1994 Musculoskeletal gait and station Overall: normal station 05/12/2016 None Full Exam - General 1994 Neurologic gait Overall: no ataxia, no unsteadiness 05/12/2016 None Full Exam - General 1994 Psychiatric orientation/consciousness Overall: oriented to person, place and time 05/12/2016 None Full Exam - General 1994 Psychiatric mood and affect Overall: normal mood and affect 05/12/2016 None Full Exam - General 1994 Constitutional general appearance Overall: well developed 02/23/2016 None Full Exam - General 1994 Constitutional general appearance Overall: in no acute distress 02/23/2016 None Full Exam - General 1994 Constitutional general appearance Overall: well nourished 02/23/2016 None Full Exam - General 1994 Eyes pupils and irises Overall: pupils equal, round, reactive to light and accomodation 02/23/2016 None Full Exam - General 1994 Ears/Nose/Throat otoscopic exam Overall: external auditory canals clear 02/23/2016 None Full Exam - General 1994 Ears/Nose/Throat otoscopic exam Overall: tympanic membranes clear 02/23/2016 None Full Exam - General 1994 Ears/Nose/Throat oral cavity/pharynx/larynx Overall: oral mucosa clear 02/23/2016 None Full Exam - General 1994 Ears/Nose/Throat oral cavity/pharynx/larynx Overall: oropharyngeal mucosa clear 02/23/2016 None Full Exam - General 1994 Ears/Nose/Throat oral cavity/pharynx/larynx Overall: no masses 02/23/2016 None Full Exam - General 1994 Respiratory auscultation Overall: breath sounds clear bilaterally 02/23/2016 None Full Exam - General 1994 Respiratory respiratory effort/rhythm Overall: no retractions 02/23/2016 None Full Exam - General 1994 Respiratory respiratory effort/rhythm Overall: normal rate 02/23/2016 None Full Exam - General 1994 Cardiovascular auscultation of heart Overall: regular rate 02/23/2016 None Full Exam - General 1994 Cardiovascular auscultation of heart Overall: normal heart sounds 02/23/2016 None Full Exam - General 1994 Cardiovascular auscultation of heart Overall: no murmurs 02/23/2016 None Full Exam - General 1994 Abdomen abdominal exam Overall: no tenderness 02/23/2016 None Full Exam - General 1994 Abdomen abdominal exam Overall: normal bowel sounds 02/23/2016 None Full Exam - General 1994 Abdomen abdominal exam Contour: rounded 02/23/2016 None Full Exam - General 1994 Musculoskeletal digits and nails Overall: no clubbing 02/23/2016 None Full Exam - General 1994 Musculoskeletal digits and nails Overall: digits benign 02/23/2016 None Full Exam - General 1994 Musculoskeletal spine, ribs and pelvis Overall: sacroiliac joint benign 02/23/2016 None Full Exam - General 1994 Musculoskeletal gait and station Overall: normal gait 02/23/2016 None Full Exam - General 1994 Musculoskeletal gait and station Overall: normal station 02/23/2016 None Full Exam - General 1994 Neurologic gait Overall: no ataxia, no unsteadiness 02/23/2016 None Full Exam - General 1994 Psychiatric orientation/consciousness Overall: oriented to person, place and time 02/23/2016 None Full Exam - General 1994 Psychiatric mood and affect Overall: normal mood and affect 02/23/2016 None Full Exam - General 1994 Musculoskeletal spine, ribs and pelvis Posture: lordosis 02/23/2016 None Full Exam - General 1994 Constitutional general appearance Overall: well developed 12/10/2015 None Full Exam - General 1994 Constitutional general appearance Overall: in no acute distress 12/10/2015 None Full Exam - General 1994 Constitutional general appearance Overall: well nourished 12/10/2015 None Full Exam - General 1994 Eyes pupils and irises Overall: pupils equal, round, reactive to light and accomodation 12/10/2015 None Full Exam - General 1994 Ears/Nose/Throat otoscopic exam Overall: external auditory canals clear 12/10/2015 None Full Exam - General 1994 Ears/Nose/Throat otoscopic exam Overall: tympanic membranes clear 12/10/2015 None Full Exam - General 1994 Ears/Nose/Throat oral cavity/pharynx/larynx Overall: oral mucosa clear 12/10/2015 None Full Exam - General 1994 Ears/Nose/Throat oral cavity/pharynx/larynx Overall: oropharyngeal mucosa clear 12/10/2015 None Full Exam - General 1994 Ears/Nose/Throat oral cavity/pharynx/larynx Overall: no masses 12/10/2015 None Full Exam - General 1994 Respiratory auscultation Overall: breath sounds clear bilaterally 12/10/2015 None Full Exam - General 1994 Respiratory respiratory effort/rhythm Overall: no retractions 12/10/2015 None Full Exam - General 1994 Respiratory respiratory effort/rhythm Overall: normal rate 12/10/2015 None Full Exam - General 1994 Cardiovascular auscultation of heart Overall: regular rate 12/10/2015 None Full Exam - General 1994 Cardiovascular auscultation of heart Overall: normal heart sounds 12/10/2015 None Full Exam - General 1994 Cardiovascular auscultation of heart Overall: no murmurs 12/10/2015 None Full Exam - General 1994 Abdomen abdominal exam Overall: no tenderness 12/10/2015 None Full Exam - General 1994 Abdomen abdominal exam Overall: normal bowel sounds 12/10/2015 None Full Exam - General 1994 Abdomen abdominal exam Contour: rounded 12/10/2015 None Full Exam - General 1994 Musculoskeletal digits and nails Overall: no clubbing 12/10/2015 None Full Exam - General 1994 Musculoskeletal digits and nails Overall: digits benign 12/10/2015 None Full Exam - General 1994 Musculoskeletal spine, ribs and pelvis Overall: spine benign 12/10/2015 None Full Exam - General 1994 Musculoskeletal spine, ribs and pelvis Overall: sacroiliac joint benign 12/10/2015 None Full Exam - General 1994 Musculoskeletal spine, ribs and pelvis Overall: good posture 12/10/2015 None Full Exam - General 1994 Musculoskeletal gait and station Overall: normal gait 12/10/2015 None Full Exam - General 1994 Musculoskeletal gait and station Overall: normal station 12/10/2015 None Full Exam - General 1994 Neurologic gait Overall: no ataxia, no unsteadiness 12/10/2015 None Full Exam - General 1994 Psychiatric orientation/consciousness Overall: oriented to person, place and time 12/10/2015 None Full Exam - General 1994 Psychiatric mood and affect Overall: normal mood and affect 12/10/2015 None Full Exam - General 1994 Constitutional general appearance Overall: well developed 11/10/2015 None Full Exam - General 1994 Constitutional general appearance Overall: in no acute distress 11/10/2015 None Full Exam - General 1994 Constitutional general appearance Overall: well nourished 11/10/2015 None Full Exam - General 1994 Eyes pupils and irises Overall: pupils equal, round, reactive to light and accomodation 11/10/2015 None Full Exam - General 1994 Ears/Nose/Throat otoscopic exam Overall: external auditory canals clear 11/10/2015 None Full Exam - General 1994 Ears/Nose/Throat otoscopic exam Overall: tympanic membranes clear 11/10/2015 None Full Exam - General 1994 Ears/Nose/Throat oral cavity/pharynx/larynx Overall: oral mucosa clear 11/10/2015 None Full Exam - General 1994 Ears/Nose/Throat oral cavity/pharynx/larynx Overall: oropharyngeal mucosa clear 11/10/2015 None Full Exam - General 1994 Ears/Nose/Throat oral cavity/pharynx/larynx Overall: no masses 11/10/2015 None Full Exam - General 1994 Respiratory auscultation Overall: breath sounds clear bilaterally 11/10/2015 None Full Exam - General 1994 Respiratory respiratory effort/rhythm Overall: no retractions 11/10/2015 None Full Exam - General 1994 Respiratory respiratory effort/rhythm Overall: normal rate 11/10/2015 None Full Exam - General 1994 Cardiovascular auscultation of heart Overall: regular rate 11/10/2015 None Full Exam - General 1994 Cardiovascular auscultation of heart Overall: normal heart sounds 11/10/2015 None Full Exam - General 1994 Cardiovascular auscultation of heart Overall: no murmurs 11/10/2015 None Full Exam - General 1994 Abdomen abdominal exam Overall: no tenderness 11/10/2015 None Full Exam - General 1994 Abdomen abdominal exam Overall: normal bowel sounds 11/10/2015 None Full Exam - General 1994 Abdomen abdominal exam Contour: rounded 11/10/2015 None Full Exam - General 1994 Musculoskeletal digits and nails Overall: no clubbing 11/10/2015 None Full Exam - General 1994 Musculoskeletal digits and nails Overall: digits benign 11/10/2015 None Full Exam - General 1994 Musculoskeletal spine, ribs and pelvis Overall: spine benign 11/10/2015 None Full Exam - General 1994 Musculoskeletal spine, ribs and pelvis Overall: sacroiliac joint benign 11/10/2015 None Full Exam - General 1994 Musculoskeletal spine, ribs and pelvis Overall: good posture 11/10/2015 None Full Exam - General 1994 Musculoskeletal gait and station Overall: normal gait 11/10/2015 None Full Exam - General 1994 Musculoskeletal gait and station Overall: normal station 11/10/2015 None Full Exam - General 1994 Neurologic gait Overall: no ataxia, no unsteadiness 11/10/2015 None Full Exam - General 1994 Psychiatric orientation/consciousness Overall: oriented to person, place and time 11/10/2015 None Full Exam - General 1994 Psychiatric mood and affect Overall: normal mood and affect 11/10/2015 None Full Exam - General 1994 Constitutional general appearance Overall: well developed 08/07/2015 None Full Exam - General 1994 Constitutional general appearance Overall: in no acute distress 08/07/2015 None Full Exam - General 1994 Constitutional general appearance Overall: well nourished 08/07/2015 None Full Exam - General 1994 Eyes pupils and irises Overall: pupils equal, round, reactive to light and accomodation 08/07/2015 None Full Exam - General 1994 Ears/Nose/Throat otoscopic exam Overall: external auditory canals clear 08/07/2015 None Full Exam - General 1994 Ears/Nose/Throat otoscopic exam Overall: tympanic membranes clear 08/07/2015 None Full Exam - General 1994 Ears/Nose/Throat oral cavity/pharynx/larynx Overall: oral mucosa clear 08/07/2015 None Full Exam - General 1994 Ears/Nose/Throat oral cavity/pharynx/larynx Overall: oropharyngeal mucosa clear 08/07/2015 None Full Exam - General 1994 Ears/Nose/Throat oral cavity/pharynx/larynx Overall: no masses 08/07/2015 None Full Exam - General 1994 Respiratory auscultation Overall: breath sounds clear bilaterally 08/07/2015 None Full Exam - General 1994 Respiratory respiratory effort/rhythm Overall: no retractions 08/07/2015 None Full Exam - General 1994 Respiratory respiratory effort/rhythm Overall: normal rate 08/07/2015 None Full Exam - General 1994 Cardiovascular auscultation of heart Overall: regular rate 08/07/2015 None Full Exam - General 1994 Cardiovascular auscultation of heart Overall: normal heart sounds 08/07/2015 None Full Exam - General 1994 Cardiovascular auscultation of heart Overall: no murmurs 08/07/2015 None Full Exam - General 1994 Abdomen abdominal exam Overall: no tenderness 08/07/2015 None Full Exam - General 1994 Abdomen abdominal exam Overall: normal bowel sounds 08/07/2015 None Full Exam - General 1994 Abdomen abdominal exam Contour: rounded 08/07/2015 None Full Exam - General 1994 Musculoskeletal digits and nails Overall: no clubbing 08/07/2015 None Full Exam - General 1994 Musculoskeletal digits and nails Overall: digits benign 08/07/2015 None Full Exam - General 1994 Musculoskeletal spine, ribs and pelvis Overall: spine benign 08/07/2015 None Full Exam - General 1994 Musculoskeletal spine, ribs and pelvis Overall: sacroiliac joint benign 08/07/2015 None Full Exam - General 1994 Musculoskeletal spine, ribs and pelvis Overall: good posture 08/07/2015 None Full Exam - General 1994 Musculoskeletal gait and station Overall: normal gait 08/07/2015 None Full Exam - General 1994 Musculoskeletal gait and station Overall: normal station 08/07/2015 None Full Exam - General 1994 Neurologic gait Overall: no ataxia, no unsteadiness 08/07/2015 None Full Exam - General 1994 Psychiatric orientation/consciousness Overall: oriented to person, place and time 08/07/2015 None Full Exam - General 1994 Psychiatric mood and affect Overall: normal mood and affect 08/07/2015 None Full Exam - General 1994 Constitutional general appearance Overall: well developed 07/07/2015 None Full Exam - General 1994 Constitutional general appearance Overall: in no acute distress 07/07/2015 None Full Exam - General 1994 Constitutional general appearance Overall: well nourished 07/07/2015 None Full Exam - General 1994 Eyes pupils and irises Overall: pupils equal, round, reactive to light and accomodation 07/07/2015 None Full Exam - General 1994 Ears/Nose/Throat otoscopic exam Overall: external auditory canals clear 07/07/2015 None Full Exam - General 1994 Ears/Nose/Throat otoscopic exam Overall: tympanic membranes clear 07/07/2015 None Full Exam - General 1994 Ears/Nose/Throat oral cavity/pharynx/larynx Overall: oral mucosa clear 07/07/2015 None Full Exam - General 1994 Ears/Nose/Throat oral cavity/pharynx/larynx Overall: oropharyngeal mucosa clear 07/07/2015 None Full Exam - General 1994 Ears/Nose/Throat oral cavity/pharynx/larynx Overall: no masses 07/07/2015 None Full Exam - General 1994 Respiratory auscultation Overall: breath sounds clear bilaterally 07/07/2015 None Full Exam - General 1994 Respiratory respiratory effort/rhythm Overall: no retractions 07/07/2015 None Full Exam - General 1994 Respiratory respiratory effort/rhythm Overall: normal rate 07/07/2015 None Full Exam - General 1994 Cardiovascular auscultation of heart Overall: regular rate 07/07/2015 None Full Exam - General 1994 Cardiovascular auscultation of heart Overall: normal heart sounds 07/07/2015 None Full Exam - General 1994 Cardiovascular auscultation of heart Overall: no murmurs 07/07/2015 None Full Exam - General 1994 Abdomen abdominal exam Overall: no tenderness 07/07/2015 None Full Exam - General 1994 Abdomen abdominal exam Overall: normal bowel sounds 07/07/2015 None Full Exam - General 1994 Abdomen abdominal exam Contour: rounded 07/07/2015 None Full Exam - General 1994 Musculoskeletal digits and nails Overall: no clubbing 07/07/2015 None Full Exam - General 1994 Musculoskeletal digits and nails Overall: digits benign 07/07/2015 None Full Exam - General 1994 Musculoskeletal spine, ribs and pelvis Overall: spine benign 07/07/2015 None Full Exam - General 1994 Musculoskeletal spine, ribs and pelvis Overall: sacroiliac joint benign 07/07/2015 None Full Exam - General 1994 Musculoskeletal spine, ribs and pelvis Overall: good posture 07/07/2015 None Full Exam - General 1994 Musculoskeletal gait and station Overall: normal gait 07/07/2015 None Full Exam - General 1994 Musculoskeletal gait and station Overall: normal station 07/07/2015 None Full Exam - General 1994 Neurologic gait Overall: no ataxia, no unsteadiness 07/07/2015 None Full Exam - General 1994 Psychiatric orientation/consciousness Overall: oriented to person, place and time 07/07/2015 None Full Exam - General 1994 Psychiatric mood and affect Overall: normal mood and affect 07/07/2015 None Full Exam - General 1994 Constitutional general appearance Overall: well developed 04/02/2015 None Full Exam - General 1994 Constitutional general appearance Overall: in no acute distress 04/02/2015 None Full Exam - General 1994 Constitutional general appearance Overall: well nourished 04/02/2015 None Full Exam - General 1994 Constitutional general appearance Hygiene/Attention to Grooming: good hygiene 04/02/2015 None Full Exam - General 1994 Eyes pupils and irises Overall: pupils equal, round, reactive to light and accomodation 04/02/2015 None Full Exam - General 1994 Ears/Nose/Throat otoscopic exam Overall: external auditory canals clear 04/02/2015 None Full Exam - General 1994 Ears/Nose/Throat otoscopic exam Overall: tympanic membranes clear 04/02/2015 None Full Exam - General 1994 Ears/Nose/Throat oral cavity/pharynx/larynx Overall: oral mucosa clear 04/02/2015 None Full Exam - General 1994 Ears/Nose/Throat oral cavity/pharynx/larynx Overall: oropharyngeal mucosa clear 04/02/2015 None Full Exam - General 1994 Ears/Nose/Throat oral cavity/pharynx/larynx Overall: no masses 04/02/2015 None Full Exam - General 1994 Respiratory auscultation Overall: breath sounds clear bilaterally 04/02/2015 None Full Exam - General 1994 Respiratory respiratory effort/rhythm Overall: no retractions 04/02/2015 None Full Exam - General 1994 Respiratory respiratory effort/rhythm Overall: normal rate 04/02/2015 None Full Exam - General 1994 Cardiovascular auscultation of heart Overall: regular rate 04/02/2015 None Full Exam - General 1994 Cardiovascular auscultation of heart Overall: normal heart sounds 04/02/2015 None Full Exam - General 1994 Abdomen abdominal exam Overall: no tenderness 04/02/2015 None Full Exam - General 1994 Abdomen abdominal exam Overall: normal bowel sounds 04/02/2015 None Full Exam - General 1994 Abdomen abdominal exam Contour: rounded 04/02/2015 None Full Exam - General 1994 Neurologic gait Overall: no ataxia, no unsteadiness 04/02/2015 None Full Exam - General 1994 Psychiatric orientation/consciousness Overall: oriented to person, place and time 04/02/2015 None Full Exam - General 1994 Psychiatric mood and affect Overall: normal mood and affect 04/02/2015 None Full Exam - General 1994 Constitutional general appearance Overall: well developed 12/23/2014 None Full Exam - General 1994 Constitutional general appearance Overall: in no acute distress 12/23/2014 None Full Exam - General 1994 Constitutional general appearance Overall: well nourished 12/23/2014 None Full Exam - General 1994 Eyes pupils and irises Overall: pupils equal, round, reactive to light and accomodation 12/23/2014 None Full Exam - General 1994 Ears/Nose/Throat otoscopic exam Overall: external auditory canals clear 12/23/2014 None Full Exam - General 1994 Ears/Nose/Throat otoscopic exam Overall: tympanic membranes clear 12/23/2014 None Full Exam - General 1994 Ears/Nose/Throat oral cavity/pharynx/larynx Overall: oral mucosa clear 12/23/2014 None Full Exam - General 1994 Ears/Nose/Throat oral cavity/pharynx/larynx Overall: oropharyngeal mucosa clear 12/23/2014 None Full Exam - General 1994 Ears/Nose/Throat oral cavity/pharynx/larynx Overall: no masses 12/23/2014 None Full Exam - General 1994 Respiratory auscultation Overall: breath sounds clear bilaterally 12/23/2014 None Full Exam - General 1994 Respiratory respiratory effort/rhythm Overall: no retractions 12/23/2014 None Full Exam - General 1994 Respiratory respiratory effort/rhythm Overall: normal rate 12/23/2014 None Full Exam - General 1994 Cardiovascular auscultation of heart Overall: regular rate 12/23/2014 None Full Exam - General 1994 Cardiovascular auscultation of heart Overall: normal heart sounds 12/23/2014 None Full Exam - General 1994 Cardiovascular auscultation of heart Overall: no murmurs 12/23/2014 None Full Exam - General 1994 Abdomen abdominal exam Overall: no tenderness 12/23/2014 None Full Exam - General 1994 Abdomen abdominal exam Overall: normal bowel sounds 12/23/2014 None Full Exam - General 1994 Abdomen abdominal exam Contour: rounded 12/23/2014 None Full Exam - General 1994 Musculoskeletal digits and nails Overall: no clubbing 12/23/2014 None Full Exam - General 1994 Musculoskeletal digits and nails Overall: digits benign 12/23/2014 None Full Exam - General 1994 Musculoskeletal spine, ribs and pelvis Overall: spine benign 12/23/2014 None Full Exam - General 1994 Musculoskeletal spine, ribs and pelvis Overall: sacroiliac joint benign 12/23/2014 None Full Exam - General 1994 Musculoskeletal spine, ribs and pelvis Overall: good posture 12/23/2014 None Full Exam - General 1994 Musculoskeletal gait and station Overall: normal gait 12/23/2014 None Full Exam - General 1994 Musculoskeletal gait and station Overall: normal station 12/23/2014 None Full Exam - General 1994 Neurologic gait Overall: no ataxia, no unsteadiness 12/23/2014 None Full Exam - General 1994 Psychiatric orientation/consciousness Overall: oriented to person, place and time 12/23/2014 None Full Exam - General 1994 Psychiatric mood and affect Overall: normal mood and affect 12/23/2014 None Full Exam - General 1994 Constitutional general appearance Overall: well developed 10/22/2014 None Full Exam - General 1994 Constitutional general appearance Overall: in no acute distress 10/22/2014 None Full Exam - General 1994 Constitutional general appearance Overall: well nourished 10/22/2014 None Full Exam - General 1994 Eyes pupils and irises Overall: pupils equal, round, reactive to light and accomodation 10/22/2014 None Full Exam - General 1994 Ears/Nose/Throat otoscopic exam Overall: external auditory canals clear 10/22/2014 None Full Exam - General 1994 Ears/Nose/Throat otoscopic exam Overall: tympanic membranes clear 10/22/2014 None Full Exam - General 1994 Ears/Nose/Throat oral cavity/pharynx/larynx Overall: oral mucosa clear 10/22/2014 None Full Exam - General 1994 Ears/Nose/Throat oral cavity/pharynx/larynx Overall: oropharyngeal mucosa clear 10/22/2014 None Full Exam - General 1994 Ears/Nose/Throat oral cavity/pharynx/larynx Overall: no masses 10/22/2014 None Full Exam - General 1994 Respiratory auscultation Overall: breath sounds clear bilaterally 10/22/2014 None Full Exam - General 1994 Respiratory respiratory effort/rhythm Overall: no retractions 10/22/2014 None Full Exam - General 1994 Respiratory respiratory effort/rhythm Overall: normal rate 10/22/2014 None Full Exam - General 1994 Cardiovascular auscultation of heart Overall: regular rate 10/22/2014 None Full Exam - General 1994 Cardiovascular auscultation of heart Overall: normal heart sounds 10/22/2014 None Full Exam - General 1994 Cardiovascular auscultation of heart Overall: no murmurs 10/22/2014 None Full Exam - General 1994 Abdomen abdominal exam Overall: no tenderness 10/22/2014 None Full Exam - General 1994 Abdomen abdominal exam Overall: normal bowel sounds 10/22/2014 None Full Exam - General 1994 Abdomen abdominal exam Contour: rounded 10/22/2014 None Full Exam - General 1994 Musculoskeletal digits and nails Overall: no clubbing 10/22/2014 None Full Exam - General 1994 Musculoskeletal digits and nails Overall: digits benign 10/22/2014 None Full Exam - General 1994 Musculoskeletal spine, ribs and pelvis Overall: spine benign 10/22/2014 None Full Exam - General 1994 Musculoskeletal spine, ribs and pelvis Overall: sacroiliac joint benign 10/22/2014 None Full Exam - General 1994 Musculoskeletal spine, ribs and pelvis Overall: good posture 10/22/2014 None Full Exam - General 1994 Musculoskeletal gait and station Overall: normal gait 10/22/2014 None Full Exam - General 1994 Musculoskeletal gait and station Overall: normal station 10/22/2014 None Full Exam - General 1994 Neurologic gait Overall: no ataxia, no unsteadiness 10/22/2014 None Full Exam - General 1994 Psychiatric orientation/consciousness Overall: oriented to person, place and time 10/22/2014 None Full Exam - General 1994 Psychiatric mood and affect Overall: normal mood and affect 10/22/2014 None Full Exam - General 1994 Constitutional general appearance Overall: well developed 09/26/2014 None Full Exam - General 1994 Constitutional general appearance Overall: in no acute distress 09/26/2014 None Full Exam - General 1994 Constitutional general appearance Overall: well nourished 09/26/2014 None Full Exam - General 1994 Eyes pupils and irises Overall: pupils equal, round, reactive to light and accomodation 09/26/2014 None Full Exam - General 1994 Ears/Nose/Throat oral cavity/pharynx/larynx Overall: oral mucosa clear 09/26/2014 None Full Exam - General 1994 Ears/Nose/Throat oral cavity/pharynx/larynx Overall: no masses 09/26/2014 None Full Exam - General 1994 Respiratory respiratory effort/rhythm Overall: no retractions 09/26/2014 None Full Exam - General 1994 Respiratory respiratory effort/rhythm Overall: normal rate 09/26/2014 None Full Exam - General 1994 Cardiovascular auscultation of heart Overall: regular rate 09/26/2014 None Full Exam - General 1994 Cardiovascular auscultation of heart Overall: normal heart sounds 09/26/2014 None Full Exam - General 1994 Cardiovascular auscultation of heart Overall: no murmurs 09/26/2014 None Full Exam - General 1994 Musculoskeletal digits and nails Overall: no clubbing 09/26/2014 None Full Exam - General 1994 Musculoskeletal digits and nails Overall: digits benign 09/26/2014 None Full Exam - General 1994 Musculoskeletal spine, ribs and pelvis Overall: good posture 09/26/2014 None Full Exam - General 1994 Musculoskeletal gait and station Overall: normal gait 09/26/2014 None Full Exam - General 1994 Musculoskeletal gait and station Overall: normal station 09/26/2014 None Full Exam - General 1994 Psychiatric orientation/consciousness Overall: oriented to person, place and time 09/26/2014 None Full Exam - General 1994 Psychiatric mood and affect Overall: normal mood and affect 09/26/2014 None Full Exam - General 1994 Ears/Nose/Throat otoscopic exam Overall: tympanic membranes clear 09/26/2014 None Full Exam - General 1994 Ears/Nose/Throat otoscopic exam Overall: external auditory canals clear 09/26/2014 None Full Exam - General 1994 Respiratory auscultation Overall: breath sounds clear bilaterally 09/26/2014 None Full Exam - General 1994 Lymphatic neck nodes Overall: anterior cervical chain benign 09/26/2014 None Full Exam - General 1994 Lymphatic neck nodes Overall: posterior cervical chain benign 09/26/2014 None Full Exam - General 1994 Constitutional general appearance Overall: well developed 07/01/2014 None Full Exam - General 1994 Constitutional general appearance Overall: in no acute distress 07/01/2014 None Full Exam - General 1994 Constitutional general appearance Overall: well nourished 07/01/2014 None Full Exam - General 1994 Eyes pupils and irises Overall: pupils equal, round, reactive to light and accomodation 07/01/2014 None Full Exam - General 1994 Ears/Nose/Throat otoscopic exam Overall: external auditory canals clear 07/01/2014 None Full Exam - General 1994 Ears/Nose/Throat otoscopic exam Overall: tympanic membranes clear 07/01/2014 None Full Exam - General 1994 Ears/Nose/Throat oral cavity/pharynx/larynx Overall: oral mucosa clear 07/01/2014 None Full Exam - General 1994 Ears/Nose/Throat oral cavity/pharynx/larynx Overall: oropharyngeal mucosa clear 07/01/2014 None Full Exam - General 1994 Ears/Nose/Throat oral cavity/pharynx/larynx Overall: no masses 07/01/2014 None Full Exam - General 1994 Respiratory auscultation Overall: breath sounds clear bilaterally 07/01/2014 None Full Exam - General 1994 Respiratory respiratory effort/rhythm Overall: no retractions 07/01/2014 None Full Exam - General 1994 Respiratory respiratory effort/rhythm Overall: normal rate 07/01/2014 None Full Exam - General 1994 Cardiovascular auscultation of heart Overall: regular rate 07/01/2014 None Full Exam - General 1994 Cardiovascular auscultation of heart Overall: normal heart sounds 07/01/2014 None Full Exam - General 1994 Cardiovascular auscultation of heart Overall: no murmurs 07/01/2014 None Full Exam - General 1994 Abdomen abdominal exam Overall: no tenderness 07/01/2014 None Full Exam - General 1994 Abdomen abdominal exam Overall: normal bowel sounds 07/01/2014 None Full Exam - General 1994 Abdomen abdominal exam Contour: rounded 07/01/2014 None Full Exam - General 1994 Musculoskeletal digits and nails Overall: no clubbing 07/01/2014 None Full Exam - General 1994 Musculoskeletal digits and nails Overall: digits benign 07/01/2014 None Full Exam - General 1994 Musculoskeletal spine, ribs and pelvis Overall: spine benign 07/01/2014 None Full Exam - General 1994 Musculoskeletal spine, ribs and pelvis Overall: sacroiliac joint benign 07/01/2014 None Full Exam - General 1994 Musculoskeletal spine, ribs and pelvis Overall: good posture 07/01/2014 None Full Exam - General 1994 Musculoskeletal gait and station Overall: normal gait 07/01/2014 None Full Exam - General 1994 Musculoskeletal gait and station Overall: normal station 07/01/2014 None Full Exam - General 1994 Neurologic gait Overall: no ataxia, no unsteadiness 07/01/2014 None Full Exam - General 1994 Psychiatric orientation/consciousness Overall: oriented to person, place and time 07/01/2014 None Full Exam - General 1994 Psychiatric mood and affect Overall: normal mood and affect 07/01/2014 None Full Exam - General 1994 Constitutional general appearance Overall: well developed 06/09/2014 None Full Exam - General 1994 Constitutional general appearance Overall: in no acute distress 06/09/2014 None Full Exam - General 1994 Constitutional general appearance Overall: well nourished 06/09/2014 None Full Exam - General 1994 Eyes pupils and irises Overall: pupils equal, round, reactive to light and accomodation 06/09/2014 None Full Exam - General 1994 Ears/Nose/Throat otoscopic exam Overall: external auditory canals clear 06/09/2014 None Full Exam - General 1994 Ears/Nose/Throat otoscopic exam Overall: tympanic membranes clear 06/09/2014 None Full Exam - General 1994 Ears/Nose/Throat oral cavity/pharynx/larynx Overall: oral mucosa clear 06/09/2014 None Full Exam - General 1994 Ears/Nose/Throat oral cavity/pharynx/larynx Overall: oropharyngeal mucosa clear 06/09/2014 None Full Exam - General 1994 Ears/Nose/Throat oral cavity/pharynx/larynx Overall: no masses 06/09/2014 None Full Exam - General 1994 Respiratory auscultation Overall: breath sounds clear bilaterally 06/09/2014 None Full Exam - General 1994 Respiratory respiratory effort/rhythm Overall: no retractions 06/09/2014 None Full Exam - General 1994 Respiratory respiratory effort/rhythm Overall: normal rate 06/09/2014 None Full Exam - General 1994 Cardiovascular auscultation of heart Overall: regular rate 06/09/2014 None Full Exam - General 1994 Cardiovascular auscultation of heart Overall: normal heart sounds 06/09/2014 None Full Exam - General 1994 Cardiovascular auscultation of heart Overall: no murmurs 06/09/2014 None Full Exam - General 1994 Abdomen abdominal exam Overall: no tenderness 06/09/2014 None Full Exam - General 1994 Abdomen abdominal exam Overall: normal bowel sounds 06/09/2014 None Full Exam - General 1994 Abdomen abdominal exam Contour: rounded 06/09/2014 None Full Exam - General 1994 Musculoskeletal digits and nails Overall: no clubbing 06/09/2014 None Full Exam - General 1994 Musculoskeletal digits and nails Overall: digits benign 06/09/2014 None Full Exam - General 1994 Musculoskeletal spine, ribs and pelvis Overall: spine benign 06/09/2014 None Full Exam - General 1994 Musculoskeletal spine, ribs and pelvis Overall: sacroiliac joint benign 06/09/2014 None Full Exam - General 1994 Musculoskeletal spine, ribs and pelvis Overall: good posture 06/09/2014 None Full Exam - General 1994 Musculoskeletal gait and station Overall: normal gait 06/09/2014 None Full Exam - General 1994 Musculoskeletal gait and station Overall: normal station 06/09/2014 None Full Exam - General 1994 Neurologic gait Overall: no ataxia, no unsteadiness 06/09/2014 None Full Exam - General 1994 Psychiatric orientation/consciousness Overall: oriented to person, place and time 06/09/2014 None Full Exam - General 1994 Psychiatric mood and affect Overall: normal mood and affect 06/09/2014 None Full Exam - General 1994 Constitutional general appearance Overall: well developed 05/07/2014 None Full Exam - General 1994 Constitutional general appearance Overall: in no acute distress 05/07/2014 None Full Exam - General 1994 Constitutional general appearance Overall: well nourished 05/07/2014 None Full Exam - General 1994 Eyes pupils and irises Overall: pupils equal, round, reactive to light and accomodation 05/07/2014 None Full Exam - General 1994 Ears/Nose/Throat otoscopic exam Overall: external auditory canals clear 05/07/2014 None Full Exam - General 1994 Ears/Nose/Throat otoscopic exam Overall: tympanic membranes clear 05/07/2014 None Full Exam - General 1994 Ears/Nose/Throat oral cavity/pharynx/larynx Overall: oral mucosa clear 05/07/2014 None Full Exam - General 1994 Ears/Nose/Throat oral cavity/pharynx/larynx Overall: oropharyngeal mucosa clear 05/07/2014 None Full Exam - General 1994 Ears/Nose/Throat oral cavity/pharynx/larynx Overall: no masses 05/07/2014 None Full Exam - General 1994 Respiratory auscultation Overall: breath sounds clear bilaterally 05/07/2014 None Full Exam - General 1994 Respiratory respiratory effort/rhythm Overall: no retractions 05/07/2014 None Full Exam - General 1994 Respiratory respiratory effort/rhythm Overall: normal rate 05/07/2014 None Full Exam - General 1994 Cardiovascular auscultation of heart Overall: regular rate 05/07/2014 None Full Exam - General 1994 Cardiovascular auscultation of heart Overall: normal heart sounds 05/07/2014 None Full Exam - General 1994 Cardiovascular auscultation of heart Overall: no murmurs 05/07/2014 None Full Exam - General 1994 Abdomen abdominal exam Overall: no tenderness 05/07/2014 None Full Exam - General 1994 Abdomen abdominal exam Overall: normal bowel sounds 05/07/2014 None Full Exam - General 1994 Abdomen abdominal exam Contour: rounded 05/07/2014 None Full Exam - General 1994 Musculoskeletal digits and nails Overall: no clubbing 05/07/2014 None Full Exam - General 1994 Musculoskeletal digits and nails Overall: digits benign 05/07/2014 None Full Exam - General 1994 Musculoskeletal spine, ribs and pelvis Overall: spine benign 05/07/2014 None Full Exam - General 1994 Musculoskeletal spine, ribs and pelvis Overall: sacroiliac joint benign 05/07/2014 None Full Exam - General 1994 Musculoskeletal spine, ribs and pelvis Overall: good posture 05/07/2014 None Full Exam - General 1994 Musculoskeletal gait and station Overall: normal gait 05/07/2014 None Full Exam - General 1994 Musculoskeletal gait and station Overall: normal station 05/07/2014 None Full Exam - General 1994 Neurologic gait Overall: no ataxia, no unsteadiness 05/07/2014 None Full Exam - General 1994 Psychiatric orientation/consciousness Overall: oriented to person, place and time 05/07/2014 None Full Exam - General 1994 Psychiatric mood and affect Overall: normal mood and affect 05/07/2014 None Full Exam - General 1994 Constitutional general appearance Overall: well developed 04/21/2014 None Full Exam - General 1994 Constitutional general appearance Overall: well nourished 04/21/2014 None Full Exam - General 1994 Eyes pupils and irises Overall: pupils equal, round, reactive to light and accomodation 04/21/2014 None Full Exam - General 1994 Ears/Nose/Throat otoscopic exam Overall: external auditory canals clear 04/21/2014 None Full Exam - General 1994 Ears/Nose/Throat otoscopic exam Overall: tympanic membranes clear 04/21/2014 None Full Exam - General 1994 Ears/Nose/Throat oral cavity/pharynx/larynx Overall: oropharyngeal mucosa clear 04/21/2014 None Full Exam - General 1994 Ears/Nose/Throat oral cavity/pharynx/larynx Overall: no masses 04/21/2014 None Full Exam - General 1994 Respiratory auscultation Overall: breath sounds clear bilaterally 04/21/2014 None Full Exam - General 1994 Respiratory respiratory effort/rhythm Overall: no retractions 04/21/2014 None Full Exam - General 1994 Respiratory respiratory effort/rhythm Overall: normal rate 04/21/2014 None Full Exam - General 1994 Cardiovascular auscultation of heart Overall: regular rate 04/21/2014 None Full Exam - General 1994 Cardiovascular auscultation of heart Overall: normal heart sounds 04/21/2014 None Full Exam - General 1994 Cardiovascular auscultation of heart Overall: no murmurs 04/21/2014 None Full Exam - General 1994 Abdomen abdominal exam Overall: no tenderness 04/21/2014 None Full Exam - General 1994 Abdomen abdominal exam Overall: normal bowel sounds 04/21/2014 None Full Exam - General 1994 Abdomen abdominal exam Contour: rounded 04/21/2014 None Full Exam - General 1994 Musculoskeletal digits and nails Overall: no clubbing 04/21/2014 None Full Exam - General 1994 Musculoskeletal digits and nails Overall: digits benign 04/21/2014 None Full Exam - General 1994 Musculoskeletal spine, ribs and pelvis Overall: spine benign 04/21/2014 None Full Exam - General 1994 Musculoskeletal spine, ribs and pelvis Overall: sacroiliac joint benign 04/21/2014 None Full Exam - General 1994 Musculoskeletal spine, ribs and pelvis Overall: good posture 04/21/2014 None Full Exam - General 1994 Musculoskeletal gait and station Overall: normal gait 04/21/2014 None Full Exam - General 1994 Musculoskeletal gait and station Overall: normal station 04/21/2014 None Full Exam - General 1994 Neurologic gait Overall: no ataxia, no unsteadiness 04/21/2014 None Full Exam - General 1994 Psychiatric orientation/consciousness Overall: oriented to person, place and time 04/21/2014 None Full Exam - General 1994 Psychiatric mood and affect Overall: normal mood and affect 04/21/2014 None Full Exam - General 1994 Constitutional general appearance Hygiene/Attention to Grooming: good hygiene 04/21/2014 None Full Exam - General 1994 Constitutional general appearance Evidence of Distress: mild distress 04/21/2014 - pt unsteady with walking - Full Exam - General 1994 Ears/Nose/Throat oral cavity/pharynx/larynx Overall: oral mucosa clear 04/21/2014 but dry Full Exam - General 1994 Cardiovascular extremities Edema present: pitting 04/21/2014 None Full Exam - General 1994 Cardiovascular extremities Edema present: severity 1+ - 4+: 2+ 04/21/2014 None Full Exam - General 1994 Cardiovascular extremities Edema present: bilateral 04/21/2014 None Full Exam - General 1994 Integument inspection of skin Overall: few scattered moles, no gross abnormalities 04/21/2014 None Full Exam - General 1994 Constitutional general appearance Overall: well developed 02/14/2014 None Full Exam - General 1994 Constitutional general appearance Overall: in no acute distress 02/14/2014 None Full Exam - General 1994 Constitutional general appearance Overall: well nourished 02/14/2014 None Full Exam - General 1994 Eyes pupils and irises Overall: pupils equal, round, reactive to light and accomodation 02/14/2014 None Full Exam - General 1994 Ears/Nose/Throat otoscopic exam Overall: external auditory canals clear 02/14/2014 None Full Exam - General 1994 Ears/Nose/Throat otoscopic exam Overall: tympanic membranes clear 02/14/2014 None Full Exam - General 1994 Ears/Nose/Throat oral cavity/pharynx/larynx Overall: oral mucosa clear 02/14/2014 None Full Exam - General 1994 Ears/Nose/Throat oral cavity/pharynx/larynx Overall: oropharyngeal mucosa clear 02/14/2014 None Full Exam - General 1994 Ears/Nose/Throat oral cavity/pharynx/larynx Overall: no masses 02/14/2014 None Full Exam - General 1994 Respiratory auscultation Overall: breath sounds clear bilaterally 02/14/2014 None Full Exam - General 1994 Respiratory respiratory effort/rhythm Overall: no retractions 02/14/2014 None Full Exam - General 1994 Respiratory respiratory effort/rhythm Overall: normal rate 02/14/2014 None Full Exam - General 1994 Cardiovascular auscultation of heart Overall: regular rate 02/14/2014 None Full Exam - General 1994 Cardiovascular auscultation of heart Overall: normal heart sounds 02/14/2014 None Full Exam - General 1994 Cardiovascular auscultation of heart Overall: no murmurs 02/14/2014 None Full Exam - General 1994 Neurologic gait Overall: no ataxia, no unsteadiness 02/14/2014 None Full Exam - General 1994 Psychiatric orientation/consciousness Overall: oriented to person, place and time 02/14/2014 None Full Exam - General 1994 Psychiatric mood and affect Overall: normal mood and affect 02/14/2014 None Full Exam - General 1994 Integument inspection of skin Dermatitis: erythema 02/14/2014 anterior left lower leg/t ibia, healing bite jeff. Full Exam - Cardiology Respiratory auscultation Overall: breath sounds clear bilaterally 01/16/2014 None Full Exam - Cardiology Cardiovascular auscultation of heart Overall: regular rate 01/16/2014 None Full Exam - Cardiology Constitutional general appearance Overall: well nourished 01/16/2014 None Full Exam - Cardiology Constitutional general appearance Overall: well developed 01/16/2014 None Full Exam - Cardiology Constitutional general appearance Overall: in no acute distress 01/16/2014 None Full Exam - Cardiology Psychiatric orientation/consciousness Overall: oriented to person, place and time 01/16/2014 None Full Exam - Cardiology Psychiatric mood and affect Overall: normal mood and affect 01/16/2014 None Full Exam - Cardiology Musculoskeletal gait and station Overall: normal gait 01/16/2014 None Full Exam - Cardiology Musculoskeletal gait and station Overall: normal station 01/16/2014 - upper extremity with t enderness to palpation over the anterior head of biceps bilaterally Full Exam - General 1994 Constitutional general appearance Overall: well developed 11/14/2013 None Full Exam - General 1994 Constitutional general appearance Overall: in no acute distress 11/14/2013 None Full Exam - General 1994 Constitutional general appearance Overall: well nourished 11/14/2013 None Full Exam - General 1994 Eyes pupils and irises Overall: pupils equal, round, reactive to light and accomodation 11/14/2013 None Full Exam - General 1994 Ears/Nose/Throat otoscopic exam Overall: external auditory canals clear 11/14/2013 None Full Exam - General 1994 Ears/Nose/Throat otoscopic exam Overall: tympanic membranes clear 11/14/2013 None Full Exam - General 1994 Ears/Nose/Throat oral cavity/pharynx/larynx Overall: oral mucosa clear 11/14/2013 None Full Exam - General 1994 Ears/Nose/Throat oral cavity/pharynx/larynx Overall: oropharyngeal mucosa clear 11/14/2013 None Full Exam - General 1994 Ears/Nose/Throat oral cavity/pharynx/larynx Overall: no masses 11/14/2013 None Full Exam - General 1994 Respiratory auscultation Overall: breath sounds clear bilaterally 11/14/2013 None Full Exam - General 1994 Respiratory respiratory effort/rhythm Overall: no retractions 11/14/2013 None Full Exam - General 1994 Respiratory respiratory effort/rhythm Overall: normal rate 11/14/2013 None Full Exam - General 1994 Cardiovascular auscultation of heart Overall: regular rate 11/14/2013 None Full Exam - General 1994 Cardiovascular auscultation of heart Overall: normal heart sounds 11/14/2013 None Full Exam - General 1994 Cardiovascular auscultation of heart Overall: no murmurs 11/14/2013 None Full Exam - General 1994 Abdomen abdominal exam Overall: no tenderness 11/14/2013 None Full Exam - General 1994 Abdomen abdominal exam Overall: normal bowel sounds 11/14/2013 None Full Exam - General 1994 Abdomen abdominal exam Contour: rounded 11/14/2013 None Full Exam - General 1994 Musculoskeletal digits and nails Overall: no clubbing 11/14/2013 None Full Exam - General 1994 Musculoskeletal digits and nails Overall: digits benign 11/14/2013 None Full Exam - General 1994 Musculoskeletal spine, ribs and pelvis Overall: spine benign 11/14/2013 None Full Exam - General 1994 Musculoskeletal spine, ribs and pelvis Overall: sacroiliac joint benign 11/14/2013 None Full Exam - General 1994 Musculoskeletal spine, ribs and pelvis Overall: good posture 11/14/2013 None Full Exam - General 1994 Musculoskeletal gait and station Overall: normal gait 11/14/2013 None Full Exam - General 1994 Musculoskeletal gait and station Overall: normal station 11/14/2013 None Full Exam - General 1994 Neurologic gait Overall: no ataxia, no unsteadiness 11/14/2013 None Full Exam - General 1994 Psychiatric orientation/consciousness Overall: oriented to person, place and time 11/14/2013 None Full Exam - General 1994 Psychiatric mood and affect Overall: normal mood and affect 11/14/2013 None Full Exam - General 1994 Constitutional general appearance Overall: well developed 10/24/2013 None Full Exam - General 1994 Constitutional general appearance Overall: in no acute distress 10/24/2013 None Full Exam - General 1994 Constitutional general appearance Overall: well nourished 10/24/2013 None Full Exam - General 1994 Eyes pupils and irises Overall: pupils equal, round, reactive to light and accomodation 10/24/2013 None Full Exam - General 1994 Ears/Nose/Throat otoscopic exam Overall: external auditory canals clear 10/24/2013 None Full Exam - General 1994 Ears/Nose/Throat otoscopic exam Overall: tympanic membranes clear 10/24/2013 None Full Exam - General 1994 Ears/Nose/Throat oral cavity/pharynx/larynx Overall: oral mucosa clear 10/24/2013 None Full Exam - General 1994 Ears/Nose/Throat oral cavity/pharynx/larynx Overall: oropharyngeal mucosa clear 10/24/2013 None Full Exam - General 1994 Ears/Nose/Throat oral cavity/pharynx/larynx Overall: no masses 10/24/2013 None Full Exam - General 1994 Respiratory auscultation Overall: breath sounds clear bilaterally 10/24/2013 None Full Exam - General 1994 Respiratory respiratory effort/rhythm Overall: no retractions 10/24/2013 None Full Exam - General 1994 Respiratory respiratory effort/rhythm Overall: normal rate 10/24/2013 None Full Exam - General 1994 Cardiovascular auscultation of heart Overall: regular rate 10/24/2013 None Full Exam - General 1994 Cardiovascular auscultation of heart Overall: normal heart sounds 10/24/2013 None Full Exam - General 1994 Cardiovascular auscultation of heart Overall: no murmurs 10/24/2013 None Full Exam - General 1994 Abdomen abdominal exam Overall: no tenderness 10/24/2013 None Full Exam - General 1994 Abdomen abdominal exam Overall: normal bowel sounds 10/24/2013 None Full Exam - General 1994 Abdomen abdominal exam Contour: rounded 10/24/2013 None Full Exam - General 1994 Musculoskeletal digits and nails Overall: no clubbing 10/24/2013 None Full Exam - General 1994 Musculoskeletal digits and nails Overall: digits benign 10/24/2013 None Full Exam - General 1994 Musculoskeletal spine, ribs and pelvis Overall: spine benign 10/24/2013 None Full Exam - General 1994 Musculoskeletal spine, ribs and pelvis Overall: sacroiliac joint benign 10/24/2013 None Full Exam - General 1994 Musculoskeletal spine, ribs and pelvis Overall: good posture 10/24/2013 None Full Exam - General 1994 Musculoskeletal gait and station Overall: normal gait 10/24/2013 None Full Exam - General 1994 Musculoskeletal gait and station Overall: normal station 10/24/2013 None Full Exam - General 1994 Neurologic gait Overall: no ataxia, no unsteadiness 10/24/2013 None Full Exam - General 1994 Psychiatric orientation/consciousness Overall: oriented to person, place and time 10/24/2013 None Full Exam - General 1994 Psychiatric mood and affect Overall: normal mood and affect 10/24/2013 None Full Exam - General 1994 Constitutional general appearance Overall: well developed 06/24/2013 None Full Exam - General 1994 Cardiovascular auscultation of heart Overall: no murmurs 06/24/2013 None Full Exam - General 1994 Abdomen abdominal exam Overall: no tenderness 06/24/2013 None Full Exam - General 1994 Abdomen abdominal exam Overall: normal bowel sounds 06/24/2013 None Full Exam - General 1994 Abdomen abdominal exam Contour: rounded 06/24/2013 None Full Exam - General 1994 Musculoskeletal digits and nails Overall: no clubbing 06/24/2013 None Full Exam - General 1994 Musculoskeletal digits and nails Overall: digits benign 06/24/2013 None Full Exam - General 1994 Musculoskeletal spine, ribs and pelvis Overall: spine benign 06/24/2013 None Full Exam - General 1994 Musculoskeletal spine, ribs and pelvis Overall: sacroiliac joint benign 06/24/2013 None Full Exam - General 1994 Musculoskeletal spine, ribs and pelvis Overall: good posture 06/24/2013 None Full Exam - General 1994 Musculoskeletal gait and station Overall: normal gait 06/24/2013 None Full Exam - General 1994 Musculoskeletal gait and station Overall: normal station 06/24/2013 None Full Exam - General 1994 Neurologic gait Overall: no ataxia, no unsteadiness 06/24/2013 None Full Exam - General 1994 Psychiatric orientation/consciousness Overall: oriented to person, place and time 06/24/2013 None Full Exam - General 1994 Psychiatric mood and affect Overall: normal mood and affect 06/24/2013 None Full Exam - General 1994 Constitutional general appearance Overall: in no acute distress 06/24/2013 None Full Exam - General 1994 Constitutional general appearance Overall: well nourished 06/24/2013 None Full Exam - General 1994 Eyes pupils and irises Overall: pupils equal, round, reactive to light and accomodation 06/24/2013 None Full Exam - General 1994 Ears/Nose/Throat otoscopic exam Overall: external auditory canals clear 06/24/2013 None Full Exam - General 1994 Ears/Nose/Throat otoscopic exam Overall: tympanic membranes clear 06/24/2013 None Full Exam - General 1994 Ears/Nose/Throat oral cavity/pharynx/larynx Overall: oral mucosa clear 06/24/2013 None Full Exam - General 1994 Ears/Nose/Throat oral cavity/pharynx/larynx Overall: oropharyngeal mucosa clear 06/24/2013 None Full Exam - General 1994 Ears/Nose/Throat oral cavity/pharynx/larynx Overall: no masses 06/24/2013 None Full Exam - General 1994 Respiratory auscultation Overall: breath sounds clear bilaterally 06/24/2013 None Full Exam - General 1994 Respiratory respiratory effort/rhythm Overall: no retractions 06/24/2013 None Full Exam - General 1994 Respiratory respiratory effort/rhythm Overall: normal rate 06/24/2013 None Full Exam - General 1994 Cardiovascular auscultation of heart Overall: regular rate 06/24/2013 None Full Exam - General 1994 Cardiovascular auscultation of heart Overall: normal heart sounds 06/24/2013 None Full Exam - General 1994 Constitutional general appearance Overall: well developed 06/05/2013 None Full Exam - General 1994 Constitutional general appearance Overall: in no acute distress 06/05/2013 None Full Exam - General 1994 Constitutional general appearance Overall: well nourished 06/05/2013 None Full Exam - General 1994 Eyes pupils and irises Overall: pupils equal, round, reactive to light and accomodation 06/05/2013 None Full Exam - General 1995 Ears/Nose/Throat otoscopic exam Overall: external auditory canals clear 06/05/2013 None Full Exam - General 1995 Ears/Nose/Throat otoscopic exam Overall: tympanic membranes clear 06/05/2013 None Full Exam - General 1994 Ears/Nose/Throat oral cavity/pharynx/larynx Overall: oral mucosa clear 06/05/2013 None Full Exam - General 1995 Ears/Nose/Throat oral cavity/pharynx/larynx Overall: oropharyngeal mucosa clear 06/05/2013 None Full Exam - General 1995 Ears/Nose/Throat oral cavity/pharynx/larynx Overall: no masses 06/05/2013 None Full Exam - General 1994 Respiratory auscultation Overall: breath sounds clear bilaterally 06/05/2013 None Full Exam - General 1994 Respiratory respiratory effort/rhythm Overall: no retractions 06/05/2013 None Full Exam - General 1994 Respiratory respiratory effort/rhythm Overall: normal rate 06/05/2013 None Full Exam - General 1994 Cardiovascular auscultation of heart Overall: regular rate 06/05/2013 None Full Exam - General 1994 Cardiovascular auscultation of heart Overall: normal heart sounds 06/05/2013 None Full Exam - General 1994 Cardiovascular auscultation of heart Overall: no murmurs 06/05/2013 None Full Exam - General 1994 Abdomen abdominal exam Overall: no tenderness 06/05/2013 None Full Exam - General 1994 Abdomen abdominal exam Overall: normal bowel sounds 06/05/2013 None Full Exam - General 1994 Abdomen abdominal exam Contour: rounded 06/05/2013 None Full Exam - General 1994 Musculoskeletal digits and nails Overall: no clubbing 06/05/2013 None Full Exam - General 1995 Musculoskeletal digits and nails Overall: digits benign 06/05/2013 None Full Exam - General 1995 Musculoskeletal spine, ribs and pelvis Overall: spine benign 06/05/2013 None Full Exam - General 1995 Musculoskeletal spine, ribs and pelvis Overall: sacroiliac joint benign 06/05/2013 None Full Exam - General 1995 Musculoskeletal spine, ribs and pelvis Overall: good posture 06/05/2013 None Full Exam - General 1995 Musculoskeletal gait and station Overall: normal gait 06/05/2013 None Full Exam - General 1995 Musculoskeletal gait and station Overall: normal station 06/05/2013 None Full Exam - General 1995 Neurologic gait Overall: no ataxia, no unsteadiness 06/05/2013 None Full Exam - General 1995 Psychiatric orientation/consciousness Overall: oriented to person, place and time 06/05/2013 None Full Exam - General 1994 Psychiatric mood and affect Overall: normal mood and affect 06/05/2013 None Full Exam - General 1994 Ears/Nose/Throat oral cavity/pharynx/larynx Overall: oropharyngeal mucosa clear 04/01/2013 None Full Exam - General 1995 Ears/Nose/Throat oral cavity/pharynx/larynx Overall: no masses 04/01/2013 None Full Exam - General 1994 Respiratory auscultation Overall: breath sounds clear bilaterally 04/01/2013 None Full Exam - General 1994 Respiratory respiratory effort/rhythm Overall: no retractions 04/01/2013 None Full Exam - General 1994 Respiratory respiratory effort/rhythm Overall: normal rate 04/01/2013 None Full Exam - General 1994 Cardiovascular auscultation of heart Overall: regular rate 04/01/2013 None Full Exam - General 1994 Cardiovascular auscultation of heart Overall: normal heart sounds 04/01/2013 None Full Exam - General 1994 Cardiovascular auscultation of heart Overall: no murmurs 04/01/2013 None Full Exam - General 1994 Abdomen abdominal exam Overall: no tenderness 04/01/2013 None Full Exam - General 1994 Abdomen abdominal exam Overall: normal bowel sounds 04/01/2013 None Full Exam - General 1994 Abdomen abdominal exam Contour: rounded 04/01/2013 None Full Exam - General 1994 Musculoskeletal digits and nails Overall: no clubbing 04/01/2013 None Full Exam - General 1994 Musculoskeletal digits and nails Overall: digits benign 04/01/2013 None Full Exam - General 1994 Musculoskeletal spine, ribs and pelvis Overall: spine benign 04/01/2013 None Full Exam - General 1995 Constitutional general appearance Overall: well developed 04/01/2013 None Full Exam - General 1994 Constitutional general appearance Overall: in no acute distress 04/01/2013 None Full Exam - General 1995 Constitutional general appearance Overall: well nourished 04/01/2013 None Full Exam - General 1994 Eyes pupils and irises Overall: pupils equal, round, reactive to light and accomodation 04/01/2013 None Full Exam - General 1995 Ears/Nose/Throat otoscopic exam Overall: external auditory canals clear 04/01/2013 None Full Exam - General 1995 Ears/Nose/Throat otoscopic exam Overall: tympanic membranes clear 04/01/2013 None Full Exam - General 1995 Ears/Nose/Throat oral cavity/pharynx/larynx Overall: oral mucosa clear 04/01/2013 None Full Exam - General 1995 Musculoskeletal spine, ribs and pelvis Overall: sacroiliac joint benign 04/01/2013 None Full Exam - General 1994 Musculoskeletal spine, ribs and pelvis Overall: good posture 04/01/2013 None Full Exam - General 1994 Musculoskeletal gait and station Overall: normal gait 04/01/2013 None Full Exam - General 1994 Musculoskeletal gait and station Overall: normal station 04/01/2013 None Full Exam - General 1994 Neurologic gait Overall: no ataxia, no unsteadiness 04/01/2013 None Full Exam - General 1994 Psychiatric orientation/consciousness Overall: oriented to person, place and time 04/01/2013 None Full Exam - General 1994 Psychiatric mood and affect Overall: normal mood and affect 04/01/2013 None Full Exam - General 1994 Constitutional general appearance Overall: well developed 01/29/2013 None Full Exam - General 1994 Constitutional general appearance Overall: in no acute distress 01/29/2013 None Full Exam - General 1994 Constitutional general appearance Overall: well nourished 01/29/2013 None Full Exam - General 1994 Eyes pupils and irises Overall: pupils equal, round, reactive to light and accomodation 01/29/2013 None Full Exam - General 1995 Ears/Nose/Throat otoscopic exam Overall: external auditory canals clear 01/29/2013 None Full Exam - General 1995 Ears/Nose/Throat otoscopic exam Overall: tympanic membranes clear 01/29/2013 None Full Exam - General 1995 Ears/Nose/Throat oral cavity/pharynx/larynx Overall: oral mucosa clear 01/29/2013 None Full Exam - General 1995 Ears/Nose/Throat oral cavity/pharynx/larynx Overall: oropharyngeal mucosa clear 01/29/2013 None Full Exam - General 1995 Ears/Nose/Throat oral cavity/pharynx/larynx Overall: no masses 01/29/2013 None Full Exam - General 1994 Respiratory auscultation Overall: breath sounds clear bilaterally 01/29/2013 None Full Exam - General 1994 Respiratory respiratory effort/rhythm Overall: no retractions 01/29/2013 None Full Exam - General 1994 Respiratory respiratory effort/rhythm Overall: normal rate 01/29/2013 None Full Exam - General 1994 Cardiovascular auscultation of heart Overall: regular rate 01/29/2013 None Full Exam - General 1994 Cardiovascular auscultation of heart Overall: normal heart sounds 01/29/2013 None Full Exam - General 1994 Cardiovascular auscultation of heart Overall: no murmurs 01/29/2013 None Full Exam - General 1994 Abdomen abdominal exam Overall: no tenderness 01/29/2013 None Full Exam - General 1994 Abdomen abdominal exam Overall: normal bowel sounds 01/29/2013 None Full Exam - General 1994 Abdomen abdominal exam Contour: rounded 01/29/2013 None Full Exam - General 1994 Musculoskeletal digits and nails Overall: no clubbing 01/29/2013 None Full Exam - General 1994 Musculoskeletal digits and nails Overall: digits benign 01/29/2013 None Full Exam - General 1994 Musculoskeletal spine, ribs and pelvis Overall: spine benign 01/29/2013 None Full Exam - General 1994 Musculoskeletal spine, ribs and pelvis Overall: sacroiliac joint benign 01/29/2013 None Full Exam - General 1994 Musculoskeletal spine, ribs and pelvis Overall: good posture 01/29/2013 None Full Exam - General 1994 Musculoskeletal gait and station Overall: normal gait 01/29/2013 None Full Exam - General 1994 Musculoskeletal gait and station Overall: normal station 01/29/2013 None Full Exam - General 1994 Neurologic gait Overall: no ataxia, no unsteadiness 01/29/2013 None Full Exam - General 1994 Psychiatric orientation/consciousness Overall: oriented to person, place and time 01/29/2013 None Full Exam - General 1994 Psychiatric mood and affect Overall: normal mood and affect 01/29/2013 None Full Exam - General 1994 Constitutional general appearance Overall: well developed 12/25/2012 None Full Exam - General 1994 Constitutional general appearance Overall: in no acute distress 12/25/2012 None Full Exam - General 1995 Constitutional general appearance Overall: well nourished 12/25/2012 None Full Exam - General 1994 Eyes pupils and irises Overall: pupils equal, round, reactive to light and accomodation 12/25/2012 None Full Exam - General 1995 Ears/Nose/Throat otoscopic exam Overall: external auditory canals clear 12/25/2012 None Full Exam - General 1995 Ears/Nose/Throat otoscopic exam Overall: tympanic membranes clear 12/25/2012 None Full Exam - General 1995 Ears/Nose/Throat oral cavity/pharynx/larynx Overall: oral mucosa clear 12/25/2012 None Full Exam - General 1995 Ears/Nose/Throat oral cavity/pharynx/larynx Overall: oropharyngeal mucosa clear 12/25/2012 None Full Exam - General 1995 Ears/Nose/Throat oral cavity/pharynx/larynx Overall: no masses 12/25/2012 None Full Exam - General 1994 Respiratory auscultation Overall: breath sounds clear bilaterally 12/25/2012 None Full Exam - General 1994 Respiratory respiratory effort/rhythm Overall: no retractions 12/25/2012 None Full Exam - General 1994 Respiratory respiratory effort/rhythm Overall: normal rate 12/25/2012 None Full Exam - General 1994 Cardiovascular auscultation of heart Overall: regular rate 12/25/2012 None Full Exam - General 1994 Cardiovascular auscultation of heart Overall: normal heart sounds 12/25/2012 None Full Exam - General 1994 Cardiovascular auscultation of heart Overall: no murmurs 12/25/2012 None Full Exam - General 1994 Abdomen abdominal exam Overall: no tenderness 12/25/2012 None Full Exam - General 1994 Abdomen abdominal exam Overall: normal bowel sounds 12/25/2012 None Full Exam - General 1994 Abdomen abdominal exam Contour: rounded 12/25/2012 None Full Exam - General 1994 Musculoskeletal digits and nails Overall: no clubbing 12/25/2012 None Full Exam - General 1994 Musculoskeletal digits and nails Overall: digits benign 12/25/2012 None Full Exam - General 1994 Musculoskeletal spine, ribs and pelvis Overall: spine benign 12/25/2012 None Full Exam - General 1994 Musculoskeletal spine, ribs and pelvis Overall: sacroiliac joint benign 12/25/2012 None Full Exam - General 1994 Musculoskeletal spine, ribs and pelvis Overall: good posture 12/25/2012 None Full Exam - General 1994 Musculoskeletal gait and station Overall: normal gait 12/25/2012 None Full Exam - General 1995 Musculoskeletal gait and station Overall: normal station 12/25/2012 None Full Exam - General 1994 Neurologic gait Overall: no ataxia, no unsteadiness 12/25/2012 None Full Exam - General 1994 Psychiatric orientation/consciousness Overall: oriented to person, place and time 12/25/2012 None Full Exam - General 1995 Psychiatric mood and affect Overall: normal mood and affect 12/25/2012 None Full Exam - General 1995 Constitutional general appearance Overall: well developed 10/01/2012 None Full Exam - General 1995 Constitutional general appearance Overall: in no acute distress 10/01/2012 None Full Exam - General 1995 Constitutional general appearance Overall: well nourished 10/01/2012 None Full Exam - General 1994 Eyes pupils and irises Overall: pupils equal, round, reactive to light and accomodation 10/01/2012 None Full Exam - General 1995 Ears/Nose/Throat otoscopic exam Overall: external auditory canals clear 10/01/2012 None Full Exam - General 1994 Ears/Nose/Throat otoscopic exam Overall: tympanic membranes clear 10/01/2012 None Full Exam - General 1995 Ears/Nose/Throat oral cavity/pharynx/larynx Overall: oral mucosa clear 10/01/2012 None Full Exam - General 1995 Ears/Nose/Throat oral cavity/pharynx/larynx Overall: oropharyngeal mucosa clear 10/01/2012 None Full Exam - General 1995 Ears/Nose/Throat oral cavity/pharynx/larynx Overall: no masses 10/01/2012 None Full Exam - General 1994 Respiratory auscultation Overall: breath sounds clear bilaterally 10/01/2012 None Full Exam - General 1994 Respiratory respiratory effort/rhythm Overall: no retractions 10/01/2012 None Full Exam - General 1994 Respiratory respiratory effort/rhythm Overall: normal rate 10/01/2012 None Full Exam - General 1994 Cardiovascular auscultation of heart Overall: regular rate 10/01/2012 None Full Exam - General 1994 Cardiovascular auscultation of heart Overall: normal heart sounds 10/01/2012 None Full Exam - General 1994 Cardiovascular auscultation of heart Overall: no murmurs 10/01/2012 None Full Exam - General 1994 Abdomen abdominal exam Overall: no tenderness 10/01/2012 None Full Exam - General 1994 Abdomen abdominal exam Overall: normal bowel sounds 10/01/2012 None Full Exam - General 1994 Abdomen abdominal exam Contour: rounded 10/01/2012 None Full Exam - General 1995 Musculoskeletal digits and nails Overall: no clubbing 10/01/2012 None Full Exam - General 1995 Musculoskeletal digits and nails Overall: digits benign 10/01/2012 None Full Exam - General 1995 Musculoskeletal spine, ribs and pelvis Overall: spine benign 10/01/2012 None Full Exam - General 1995 Musculoskeletal spine, ribs and pelvis Overall: sacroiliac joint benign 10/01/2012 None Full Exam - General 1995 Musculoskeletal spine, ribs and pelvis Overall: good posture 10/01/2012 None Full Exam - General 1995 Musculoskeletal gait and station Overall: normal gait 10/01/2012 None Full Exam - General 1995 Musculoskeletal gait and station Overall: normal station 10/01/2012 None Full Exam - General 1995 Neurologic gait Overall: no ataxia, no unsteadiness 10/01/2012 None Full Exam - General 1995 Psychiatric orientation/consciousness Overall: oriented to person, place and time 10/01/2012 None Full Exam - General 1995 Psychiatric mood and affect Overall: normal mood and affect 10/01/2012 None Full Exam - General 1994 Respiratory auscultation Lower lung field: diminished 06/29/2012 None Full Exam - General 1994 Respiratory respiratory effort/rhythm Overall: no retractions 06/29/2012 None Full Exam - General 1994 Respiratory respiratory effort/rhythm Overall: normal rate 06/29/2012 None Full Exam - General 1994 Cardiovascular auscultation of heart Overall: regular rate 06/29/2012 None Full Exam - General 1994 Cardiovascular auscultation of heart Overall: normal heart sounds 06/29/2012 None Full Exam - General 1994 Cardiovascular auscultation of heart Overall: no murmurs 06/29/2012 None Full Exam - General 1994 Musculoskeletal digits and nails Overall: no clubbing 06/29/2012 None Full Exam - General 1994 Musculoskeletal digits and nails Overall: digits benign 06/29/2012 None Full Exam - General 1994 Musculoskeletal spine, ribs and pelvis Overall: good posture 06/29/2012 None Full Exam - General 1994 Musculoskeletal gait and station Overall: normal gait 06/29/2012 None Full Exam - General 1995 Musculoskeletal gait and station Overall: normal station 06/29/2012 None Full Exam - General 1994 Psychiatric orientation/consciousness Overall: oriented to person, place and time 06/29/2012 None Full Exam - General 1994 Psychiatric mood and affect Overall: normal mood and affect 06/29/2012 None Full Exam - General 1995 Respiratory auscultation Upper lung field: a normal exam 06/29/2012 None Full Exam - General 1994 Constitutional general appearance Overall: well developed 06/29/2012 None Full Exam - General 1994 Constitutional general appearance Overall: in no acute distress 06/29/2012 None Full Exam - General 1994 Constitutional general appearance Overall: well nourished 06/29/2012 None Full Exam - General 1994 Eyes pupils and irises Overall: pupils equal, round, reactive to light and accomodation 06/29/2012 None Full Exam - General 1995 Ears/Nose/Throat otoscopic exam Overall: external auditory canals clear 06/29/2012 None Full Exam - General 1994 Ears/Nose/Throat otoscopic exam Tympanic membrane: erythematous 06/29/2012 None Full Exam - General 1995 Ears/Nose/Throat otoscopic exam Tympanic membrane: bulging 06/29/2012 None Full Exam - General 1995 Ears/Nose/Throat oral cavity/pharynx/larynx Overall: oral mucosa clear 06/29/2012 None Full Exam - General 1995 Ears/Nose/Throat oral cavity/pharynx/larynx Overall: no masses 06/29/2012 None Full Exam - General 1995 Ears/Nose/Throat oral cavity/pharynx/larynx Posterior Pharynx: purulent post nasal drainage 06/29/2012 None Full Exam - General 1994 Constitutional general appearance Overall: well developed 05/28/2012 None Full Exam - General 1994 Constitutional general appearance Overall: in no acute distress 05/28/2012 None Full Exam - General 1994 Constitutional general appearance Overall: well nourished 05/28/2012 None Full Exam - General 1994 Eyes pupils and irises Overall: pupils equal, round, reactive to light and accomodation 05/28/2012 None Full Exam - General 1994 Ears/Nose/Throat otoscopic exam Overall: external auditory canals clear 05/28/2012 None Full Exam - General 1994 Ears/Nose/Throat oral cavity/pharynx/larynx Overall: oral mucosa clear 05/28/2012 None Full Exam - General 1995 Ears/Nose/Throat oral cavity/pharynx/larynx Overall: no masses 05/28/2012 None Full Exam - General 1994 Respiratory respiratory effort/rhythm Overall: no retractions 05/28/2012 None Full Exam - General 1994 Respiratory respiratory effort/rhythm Overall: normal rate 05/28/2012 None Full Exam - General 1995 Cardiovascular auscultation of heart Overall: regular rate 05/28/2012 None Full Exam - General 1994 Cardiovascular auscultation of heart Overall: normal heart sounds 05/28/2012 None Full Exam - General 1994 Cardiovascular auscultation of heart Overall: no murmurs 05/28/2012 None Full Exam - General 1995 Musculoskeletal digits and nails Overall: no clubbing 05/28/2012 None Full Exam - General 1994 Musculoskeletal digits and nails Overall: digits benign 05/28/2012 None Full Exam - General 1994 Musculoskeletal spine, ribs and pelvis Overall: good posture 05/28/2012 None Full Exam - General 1995 Musculoskeletal gait and station Overall: normal gait 05/28/2012 None Full Exam - General 1994 Musculoskeletal gait and station Overall: normal station 05/28/2012 None Full Exam - General 1994 Psychiatric orientation/consciousness Overall: oriented to person, place and time 05/28/2012 None Full Exam - General 1994 Psychiatric mood and affect Overall: normal mood and affect 05/28/2012 None Full Exam - General 1994 Ears/Nose/Throat otoscopic exam Tympanic membrane: erythematous 05/28/2012 None Full Exam - General 1994 Ears/Nose/Throat otoscopic exam Tympanic membrane: bulging 05/28/2012 None Full Exam - General 1994 Ears/Nose/Throat oral cavity/pharynx/larynx Posterior Pharynx: purulent post nasal drainage 05/28/2012 None Full Exam - General 1994 Respiratory auscultation Upper lung field: bronchial 05/28/2012 None Full Exam - General 1994 Respiratory auscultation Upper lung field: rhonchi 05/28/2012 None Full Exam - General 1994 Respiratory auscultation Lower lung field: diminished 05/28/2012 None Full Exam - General 1994 Constitutional general appearance Overall: well nourished 04/02/2012 None Full Exam - General 1994 Constitutional general appearance Overall: well developed 04/02/2012 None Full Exam - General 1994 Constitutional general appearance Overall: in no acute distress 04/02/2012 None Full Exam - General 1994 Eyes pupils and irises Overall: pupils equal, round, reactive to light and accomodation 04/02/2012 None Full Exam - General 1994 Respiratory auscultation Overall: breath sounds clear bilaterally 04/02/2012 None Full Exam - General 1994 Respiratory respiratory effort/rhythm Overall: no retractions 04/02/2012 None Full Exam - General 1994 Respiratory respiratory effort/rhythm Overall: normal rate 04/02/2012 None Full Exam - General 1994 Cardiovascular auscultation of heart Overall: regular rate 04/02/2012 None Full Exam - General 1994 Cardiovascular auscultation of heart Overall: normal heart sounds 04/02/2012 None Full Exam - General 1994 Cardiovascular auscultation of heart Overall: no murmurs 04/02/2012 None Full Exam - General 1994 Abdomen abdominal exam Overall: no tenderness 04/02/2012 None Full Exam - General 1995 Abdomen abdominal exam Overall: normal bowel sounds 04/02/2012 None Full Exam - General 1995 Abdomen abdominal exam Contour: rounded 04/02/2012 None Full Exam - General 1994 Neurologic gait Overall: no ataxia, no unsteadiness 04/02/2012 None Full Exam - General 1994 Psychiatric orientation/consciousness Overall: oriented to person, place and time 04/02/2012 None Full Exam - General 1994 Psychiatric mood and affect Overall: normal mood and affect 04/02/2012 None Full Exam - General 1994 Ears/Nose/Throat otoscopic exam Overall: tympanic membranes clear 04/02/2012 None Full Exam - General 1995 Ears/Nose/Throat otoscopic exam Overall: external auditory canals clear 04/02/2012 None Full Exam - General 1995 Ears/Nose/Throat oral cavity/pharynx/larynx Overall: oropharyngeal mucosa clear 04/02/2012 None Full Exam - General 1995 Ears/Nose/Throat oral cavity/pharynx/larynx Overall: no masses 04/02/2012 None Full Exam - General 1995 Ears/Nose/Throat oral cavity/pharynx/larynx Overall: oral mucosa clear 04/02/2012 None Full Exam - General 1994 Musculoskeletal digits and nails Overall: digits benign 04/02/2012 None Full Exam - General 1994 Musculoskeletal digits and nails Overall: no clubbing 04/02/2012 None Full Exam - General 1994 Musculoskeletal gait and station Overall: normal station 04/02/2012 None Full Exam - General 1994 Musculoskeletal gait and station Overall: normal gait 04/02/2012 None Full Exam - General 1994 Musculoskeletal spine, ribs and pelvis Overall: good posture 04/02/2012 None Full Exam - General 1994 Musculoskeletal spine, ribs and pelvis Overall: sacroiliac joint benign 04/02/2012 None Full Exam - General 1994 Musculoskeletal spine, ribs and pelvis Overall: spine benign 04/02/2012 None Full Exam - ENT Neurologic orientation Overall: oriented to person, place a nd time 01/24/2012 None Full Exam - ENT Lymphatic palpation of lymph nodes Overall: anterior cervical chain benign 01/24/2012 None Full Exam - ENT Lymphatic palpation of lymph nodes Overall: posterior cervical chain benign 01/24/2012 None Full Exam - ENT Cardiovascular auscultation of heart Overall: regular rate 01/24/2012 None Full Exam - ENT Cardiovascular auscultation of heart Overall: normal heart sounds 01/24/2012 None Full Exam - ENT Respiratory auscultation Overall: breath sounds clear bilater ally 01/24/2012 None Full Exam - ENT Face and Head palpation Overall: no sinus tenderness 01/24/2012 None Full Exam - ENT Ears/Nose/Throat otoscopic exam Overall: external auditory canals normal 01/24/2012 None Full Exam - ENT Ears/Nose/Throat otoscopic exam Left tympanic membrane: air-fluid le ingrid 01/24/2012 None Full Exam - ENT Ears/Nose/Throat otoscopic exam Right tympanic membrane: air-fluid level 01/24/2012 None Full Exam - ENT Ears/Nose/Throat oropharynx Overall: oral mucosa clear 01/24/2012 None Full Exam - ENT Constitutional general appearance Overall: well nourished 01/24/2012 None Full Exam - ENT Constitutional general appearance Overall: well developed 01/24/2012 None Full Exam - ENT Constitutional general appearance Overall: in no acute distress 01/24/2012 None Full Exam - ENT Ears/Nose/Throat nasal mucosa, septum, turbinates Drainage: purulent 01/24/2012 None Full Exam - ENT Ears/Nose/Throat nasal mucosa, septum, turbinates Left nasal cavity: erythema 01/24/2012 None Full Exam - ENT Ears/Nose/Throat nasal mucosa, septum, turbinates Right nasal cavity: erythema 01/24/2012 None Full Exam - Cardiology Constitutional general appearance Overall: well nourished 10/03/2011 None Full Exam - Cardiology Constitutional general appearance Overall: well developed 10/03/2011 None Full Exam - Cardiology Constitutional general appearance Overall: in no acute distress 10/03/2011 None Full Exam - Cardiology Eyes conjunctiva/eyelids Overall: conjunctiva clear 10/03/2011 None Full Exam - Cardiology Chest/Breast breast/chest inspection Overall: normal chest shape 10/03/2011 None Full Exam - Cardiology Respiratory respiratory effort/rhythm Overall: no retractions 10/03/2011 None Full Exam - Cardiology Respiratory respiratory effort/rhythm Overall: normal rate 10/03/2011 None Full Exam - Cardiology Respiratory auscultation Overall: breath sounds clear bilaterally 10/03/2011 None Full Exam - Cardiology Cardiovascular auscultation of heart Overall: regular rate 10/03/2011 None Full Exam - Cardiology Cardiovascular auscultation of heart Overall: normal heart sounds 10/03/2011 None Full Exam - Cardiology Cardiovascular extremities Overall: without clubbing, cyanosis, or edema 10/03/2011 None Full Exam - Cardiology Abdomen abdominal exam Overall: no tenderness 10/03/2011 None Full Exam - Cardiology Abdomen abdominal exam Overall: normal bowel sounds 10/03/2011 None Full Exam - Cardiology Extremities digits and nails Overall: no clubbing 10/03/2011 None Full Exam - Cardiology Extremities digits and nails Overall: digits benign 10/03/2011 None Full Exam - Cardiology Psychiatric orientation/consciousness Overall: oriented to person, place and time 10/03/2011 None Full Exam - General 1994 Psychiatric mood and affect Overall: normal mood and affect 05/30/2011 None Full Exam - General 1994 Psychiatric orientation/consciousness Overall: oriented to person, place and time 05/30/2011 None Full Exam - General 1994 Neurologic gait Overall: no ataxia, no unsteadiness 05/30/2011 None Full Exam - General 1994 Abdomen abdominal exam Overall: no tenderness 05/30/2011 None Full Exam - General 1994 Abdomen abdominal exam Overall: normal bowel sounds 05/30/2011 None Full Exam - General 1994 Abdomen abdominal exam Contour: rounded 05/30/2011 None Full Exam - General 1994 Cardiovascular auscultation of heart Overall: regular rate 05/30/2011 None Full Exam - General 1994 Cardiovascular auscultation of heart Overall: normal heart sounds 05/30/2011 None Full Exam - General 1994 Cardiovascular auscultation of heart Overall: no murmurs 05/30/2011 None Full Exam - General 1994 Respiratory auscultation Overall: breath sounds clear bilaterally 05/30/2011 None Full Exam - General 1994 Respiratory respiratory effort/rhythm Overall: normal rate 05/30/2011 None Full Exam - General 1994 Respiratory respiratory effort/rhythm Overall: no retractions 05/30/2011 None Full Exam - General 1994 Constitutional general appearance Overall: well nourished 05/30/2011 None Full Exam - General 1994 Constitutional general appearance Overall: well developed 05/30/2011 None Full Exam - General 1994 Constitutional general appearance Overall: in no acute distress 05/30/2011 None Full Exam - General 1994 Eyes pupils and irises Overall: pupils equal, round, reactive to light and accomodation 05/30/2011 None Exam Name System Name It em Name Status Result Effective Dates Notes Full Exam - General 1994 Constitutional general appearance Overall: well developed 02/27/2019 None Full Exam - General 1994 Constitutional general appearance Overall: in no acute distress 02/27/2019 None Full Exam - General 1994 Constitutional general appearance Overall: well nourished 02/27/2019 None Full Exam - General 1994 Eyes pupils and irises Overall: pupils equal, round, reactive to light and accomodation 02/27/2019 None Full Exam - General 1994 Ears/Nose/Throat otoscopic exam Overall: external auditory canals clear 02/27/2019 None Full Exam - General 1994 Ears/Nose/Throat otoscopic exam Overall: tympanic membranes clear 02/27/2019 None Full Exam - General 1994 Ears/Nose/Throat oral cavity/pharynx/larynx Overall: oral mucosa clear 02/27/2019 None Full Exam - General 1994 Ears/Nose/Throat oral cavity/pharynx/larynx Overall: oropharyngeal mucosa clear 02/27/2019 None Full Exam - General 1995 Ears/Nose/Throat oral cavity/pharynx/larynx Overall: no masses 02/27/2019 None Full Exam - General 1994 Respiratory auscultation Overall: breath sounds clear bilaterally 02/27/2019 None Full Exam - General 1994 Respiratory respiratory effort/rhythm Overall: no retractions 02/27/2019 None Full Exam - General 1994 Respiratory respiratory effort/rhythm Overall: normal rate 02/27/2019 None Full Exam - General 1994 Cardiovascular auscultation of heart Overall: regular rate 02/27/2019 None Full Exam - General 1994 Cardiovascular auscultation of heart Overall: normal heart sounds 02/27/2019 None Full Exam - General 1994 Cardiovascular auscultation of heart Overall: no murmurs 02/27/2019 None Full Exam - General 1994 Abdomen abdominal exam Overall: no tenderness 02/27/2019 None Full Exam - General 1994 Abdomen abdominal exam Overall: normal bowel sounds 02/27/2019 None Full Exam - General 1994 Abdomen abdominal exam Contour: rounded 02/27/2019 None Full Exam - General 1994 Musculoskeletal digits and nails Overall: no clubbing 02/27/2019 None Full Exam - General 1994 Musculoskeletal digits and nails Overall: digits benign 02/27/2019 None Full Exam - General 1994 Musculoskeletal spine, ribs and pelvis Overall: sacroiliac joint benign 02/27/2019 None Full Exam - General 1994 Musculoskeletal spine, ribs and pelvis Posture: lordosis 02/27/2019 None Full Exam - General 1994 Musculoskeletal gait and station Overall: normal gait 02/27/2019 None Full Exam - General 1994 Musculoskeletal gait and station Overall: normal station 02/27/2019 None Full Exam - General 1994 Neurologic gait Overall: no ataxia, no unsteadiness 02/27/2019 None Full Exam - General 1994 Psychiatric orientation/consciousness Overall: oriented to person, place and time 02/27/2019 None Full Exam - General 1994 Psychiatric mood and affect Overall: normal mood and affect 02/27/2019 None Full Exam - General 1994 Constitutional general appearance Overall: well developed 11/01/2018 None Full Exam - General 1994 Constitutional general appearance Overall: in no acute distress 11/01/2018 None Full Exam - General 1994 Constitutional general appearance Overall: well nourished 11/01/2018 None Full Exam - General 1994 Eyes pupils and irises Overall: pupils equal, round, reactive to light and accomodation 11/01/2018 None Full Exam - General 1994 Ears/Nose/Throat otoscopic exam Overall: external auditory canals clear 11/01/2018 None Full Exam - General 1994 Ears/Nose/Throat otoscopic exam Overall: tympanic membranes clear 11/01/2018 None Full Exam - General 1994 Ears/Nose/Throat oral cavity/pharynx/larynx Overall: oral mucosa clear 11/01/2018 None Full Exam - General 1994 Ears/Nose/Throat oral cavity/pharynx/larynx Overall: oropharyngeal mucosa clear 11/01/2018 None Full Exam - General 1994 Ears/Nose/Throat oral cavity/pharynx/larynx Overall: no masses 11/01/2018 None Full Exam - General 1994 Respiratory auscultation Overall: breath sounds clear bilaterally 11/01/2018 None Full Exam - General 1994 Respiratory respiratory effort/rhythm Overall: no retractions 11/01/2018 None Full Exam - General 1994 Respiratory respiratory effort/rhythm Overall: normal rate 11/01/2018 None Full Exam - General 1994 Cardiovascular auscultation of heart Overall: regular rate 11/01/2018 None Full Exam - General 1994 Cardiovascular auscultation of heart Overall: normal heart sounds 11/01/2018 None Full Exam - General 1994 Cardiovascular auscultation of heart Overall: no murmurs 11/01/2018 None Full Exam - General 1994 Abdomen abdominal exam Overall: no tenderness 11/01/2018 None Full Exam - General 1994 Abdomen abdominal exam Overall: normal bowel sounds 11/01/2018 None Full Exam - General 1994 Abdomen abdominal exam Contour: rounded 11/01/2018 None Full Exam - General 1994 Musculoskeletal spine, ribs and pelvis Overall: sacroiliac joint benign 11/01/2018 None Full Exam - General 1994 Musculoskeletal spine, ribs and pelvis Posture: lordosis 11/01/2018 None Full Exam - General 1994 Musculoskeletal gait and station Overall: normal gait 11/01/2018 None Full Exam - General 1994 Musculoskeletal gait and station Overall: normal station 11/01/2018 None Full Exam - General 1994 Psychiatric orientation/consciousness Overall: oriented to person, place and time 11/01/2018 None Full Exam - General 1994 Psychiatric mood and affect Overall: normal mood and affect 11/01/2018 None Full Exam - General 1994 Respiratory palpation of chest Chest wall pain: pain to light pressure 11/01/2018 over [id number] process Full Exam - General 1994 Neurologic gait Conventional walking: wide-based 11/01/2018 use of walker Exam - General 1994 Constitutional general appearance Assistive Device: walker 11/01/2018 None Full Exam - General 1994 Constitutional general appearance Overall: well developed 10/08/2018 None Full Exam - General 1994 Constitutional general appearance Overall: in no acute distress 10/08/2018 None Full Exam - General 1994 Constitutional general appearance Overall: well nourished 10/08/2018 None Full Exam - General 1994 Eyes pupils and irises Overall: pupils equal, round, reactive to light and accomodation 10/08/2018 None Full Exam - General 1994 Ears/Nose/Throat otoscopic exam Overall: external auditory canals clear 10/08/2018 None Full Exam - General 1994 Ears/Nose/Throat otoscopic exam Overall: tympanic membranes clear 10/08/2018 None Full Exam - General 1994 Ears/Nose/Throat oral cavity/pharynx/larynx Overall: oral mucosa clear 10/08/2018 None Full Exam - General 1994 Ears/Nose/Throat oral cavity/pharynx/larynx Overall: oropharyngeal mucosa clear 10/08/2018 None Full Exam - General 1994 Ears/Nose/Throat oral cavity/pharynx/larynx Overall: no masses 10/08/2018 None Full Exam - General 1994 Respiratory auscultation Overall: breath sounds clear bilaterally 10/08/2018 None Full Exam - General 1994 Respiratory respiratory effort/rhythm Overall: no retractions 10/08/2018 None Full Exam - General 1994 Respiratory respiratory effort/rhythm Overall: normal rate 10/08/2018 None Full Exam - General 1994 Cardiovascular auscultation of heart Overall: regular rate 10/08/2018 None Full Exam - General 1994 Cardiovascular auscultation of heart Overall: normal heart sounds 10/08/2018 None Full Exam - General 1994 Cardiovascular auscultation of heart Overall: no murmurs 10/08/2018 None Full Exam - General 1994 Abdomen abdominal exam Overall: no tenderness 10/08/2018 None Full Exam - General 1994 Abdomen abdominal exam Overall: normal bowel sounds 10/08/2018 None Full Exam - General 1994 Abdomen abdominal exam Contour: rounded 10/08/2018 None Full Exam - General 1994 Musculoskeletal digits and nails Overall: no clubbing 10/08/2018 None Full Exam - General 1994 Musculoskeletal digits and nails Overall: digits benign 10/08/2018 None Full Exam - General 1994 Musculoskeletal spine, ribs and pelvis Overall: sacroiliac joint benign 10/08/2018 None Full Exam - General 1994 Musculoskeletal spine, ribs and pelvis Posture: lordosis 10/08/2018 None Full Exam - General 1994 Musculoskeletal gait and station Overall: normal gait 10/08/2018 None Full Exam - General 1994 Musculoskeletal gait and station Overall: normal station 10/08/2018 None Full Exam - General 1994 Neurologic gait Overall: no ataxia, no unsteadiness 10/08/2018 None Full Exam - General 1994 Psychiatric orientation/consciousness Overall: oriented to person, place and time 10/08/2018 None Full Exam - General 1994 Psychiatric mood and affect Overall: normal mood and affect 10/08/2018 None Full Exam - Orthopedics Constitutional general appearance Overall: well nourished 09/27/2018 None Full Exam - Orthopedics Constitutional general appearance Overall: well developed 09/27/2018 None Full Exam - Orthopedics Constitutional general appearance Overall: in no acute distress 09/27/2018 None Full Exam - Orthopedics Psychiatric orientation/consciousness Overall: oriented to person, place and time 09/27/2018 None Full Exam - Orthopedics MS: spine/ri b/pelvis insp & palp - S/R/P Sacroiliac palpation: right sacroiliac joint tenderness 09/27/2018 None Full Exam - Orthopedics Respiratory auscultation Overall: breath sounds clear bilaterally 09/27/2018 None Full Exam - Orthopedics Respiratory respiratory effort/rhythm Overall: no retractions 09/27/2018 None Full Exam - Orthopedics Respiratory respiratory effort/rhythm Overall: normal rate 09/27/2018 None Full Exam - Orthopedics Respiratory respiratory effort/rhythm Overall: normal, symmetric chest expansion 09/27/2018 None Full Exam - Orthopedics Musculoskeletal gait and station Overall: normal gait 09/27/2018 None Full Exam - Orthopedics MS: spine/ri b/pelvis insp & palp - S/R/P Hip palpation: tender at the posterior margin of the right trochanter 09/27/2018 None Full Exam - General 1994 Constitutional general appearance Overall: well developed 09/11/2018 None Full Exam - General 1994 Constitutional general appearance Overall: in no acute distress 09/11/2018 None Full Exam - General 1994 Constitutional general appearance Overall: well nourished 09/11/2018 None Full Exam - General 1994 Eyes pupils and irises Overall: pupils equal, round, reactive to light and accomodation 09/11/2018 None Full Exam - General 1994 Ears/Nose/Throat otoscopic exam Overall: external auditory canals clear 09/11/2018 None Full Exam - General 1994 Ears/Nose/Throat otoscopic exam Overall: tympanic membranes clear 09/11/2018 None Full Exam - General 1994 Ears/Nose/Throat oral cavity/pharynx/larynx Overall: no masses 09/11/2018 None Full Exam - General 1994 Respiratory auscultation Overall: breath sounds clear bilaterally 09/11/2018 None Full Exam - General 1994 Respiratory respiratory effort/rhythm Overall: no retractions 09/11/2018 None Full Exam - General 1994 Respiratory respiratory effort/rhythm Overall: normal rate 09/11/2018 None Full Exam - General 1994 Cardiovascular auscultation of heart Overall: regular rate 09/11/2018 None Full Exam - General 1994 Cardiovascular auscultation of heart Overall: normal heart sounds 09/11/2018 None Full Exam - General 1994 Cardiovascular auscultation of heart Overall: no murmurs 09/11/2018 None Full Exam - General 1994 Abdomen abdominal exam Overall: no tenderness 09/11/2018 None Full Exam - General 1994 Abdomen abdominal exam Overall: normal bowel sounds 09/11/2018 None Full Exam - General 1994 Abdomen abdominal exam Contour: rounded 09/11/2018 None Full Exam - General 1994 Musculoskeletal spine, ribs and pelvis Overall: good posture 09/11/2018 None Full Exam - General 1994 Neurologic gait Overall: no ataxia, no unsteadiness 09/11/2018 None Full Exam - General 1994 Psychiatric orientation/consciousness Overall: oriented to person, place and time 09/11/2018 None Full Exam - General 1994 Psychiatric mood and affect Overall: normal mood and affect 09/11/2018 None Full Exam - General 1994 Cardiovascular extremities Edema present: pitting 09/11/2018 None Full Exam - General 1994 Cardiovascular extremities Edema present: severity 1+ - 4+: 2+ 09/11/2018 None Full Exam - General 1994 Constitutional general appearance Overall: well developed 06/04/2018 None Full Exam - General 1994 Constitutional general appearance Overall: in no acute distress 06/04/2018 None Full Exam - General 1994 Constitutional general appearance Overall: well nourished 06/04/2018 None Full Exam - General 1994 Eyes pupils and irises Overall: pupils equal, round, reactive to light and accomodation 06/04/2018 None Full Exam - General 1994 Ears/Nose/Throat otoscopic exam Overall: external auditory canals clear 06/04/2018 None Full Exam - General 1994 Ears/Nose/Throat otoscopic exam Overall: tympanic membranes clear 06/04/2018 None Full Exam - General 1994 Ears/Nose/Throat oral cavity/pharynx/larynx Overall: no masses 06/04/2018 None Full Exam - General 1994 Ears/Nose/Throat oral cavity/pharynx/larynx Oral mucosa: erythroplakia 06/04/2018 None Full Exam - General 1994 Ears/Nose/Throat oral cavity/pharynx/larynx Oral mucosa: thrush 06/04/2018 None Full Exam - General 1994 Respiratory respiratory effort/rhythm Overall: no retractions 06/04/2018 None Full Exam - General 1994 Respiratory respiratory effort/rhythm Overall: normal rate 06/04/2018 None Full Exam - General 1994 Cardiovascular auscultation of heart Overall: regular rate 06/04/2018 None Full Exam - General 1994 Cardiovascular auscultation of heart Overall: normal heart sounds 06/04/2018 None Full Exam - General 1994 Cardiovascular auscultation of heart Overall: no murmurs 06/04/2018 None Full Exam - General 1994 Abdomen abdominal exam Overall: no tenderness 06/04/2018 None Full Exam - General 1994 Abdomen abdominal exam Overall: normal bowel sounds 06/04/2018 None Full Exam - General 1994 Abdomen abdominal exam Contour: rounded 06/04/2018 None Full Exam - General 1994 Musculoskeletal spine, ribs and pelvis Overall: good posture 06/04/2018 None Full Exam - General 1994 Musculoskeletal spine, ribs and pelvis Palpation: tender at greater trochanter 06/04/2018 None Full Exam - General 1994 Neurologic gait Overall: no ataxia, no unsteadiness 06/04/2018 None Full Exam - General 1994 Psychiatric orientation/consciousness Overall: oriented to person, place and time 06/04/2018 None Full Exam - General 1994 Psychiatric mood and affect Overall: normal mood and affect 06/04/2018 None Full Exam - General 1994 Respiratory auscultation Upper lung field: Breath sounds clear 06/04/2018 None Full Exam - General 1994 Respiratory auscultation Lower lung field: crackles 06/04/2018 None Full Exam - General 1994 Constitutional general appearance Overall: well developed 03/27/2018 None Full Exam - General 1994 Constitutional general appearance Overall: in no acute distress 03/27/2018 None Full Exam - General 1994 Constitutional general appearance Overall: well nourished 03/27/2018 None Full Exam - General 1994 Eyes pupils and irises Overall: pupils equal, round, reactive to light and accomodation 03/27/2018 None Full Exam - General 1994 Ears/Nose/Throat otoscopic exam Overall: external auditory canals clear 03/27/2018 None Full Exam - General 1994 Ears/Nose/Throat otoscopic exam Overall: tympanic membranes clear 03/27/2018 None Full Exam - General 1994 Ears/Nose/Throat oral cavity/pharynx/larynx Overall: no masses 03/27/2018 None Full Exam - General 1994 Respiratory auscultation Overall: breath sounds clear bilaterally 03/27/2018 None Full Exam - General 1994 Respiratory respiratory effort/rhythm Overall: no retractions 03/27/2018 None Full Exam - General 1994 Respiratory respiratory effort/rhythm Overall: normal rate 03/27/2018 None Full Exam - General 1994 Cardiovascular auscultation of heart Overall: regular rate 03/27/2018 None Full Exam - General 1994 Cardiovascular auscultation of heart Overall: normal heart sounds 03/27/2018 None Full Exam - General 1994 Cardiovascular auscultation of heart Overall: no murmurs 03/27/2018 None Full Exam - General 1994 Abdomen abdominal exam Overall: no tenderness 03/27/2018 None Full Exam - General 1994 Abdomen abdominal exam Overall: normal bowel sounds 03/27/2018 None Full Exam - General 1994 Abdomen abdominal exam Contour: rounded 03/27/2018 None Full Exam - General 1994 Musculoskeletal spine, ribs and pelvis Overall: good posture 03/27/2018 None Full Exam - General 1994 Neurologic gait Overall: no ataxia, no unsteadiness 03/27/2018 None Full Exam - General 1994 Psychiatric orientation/consciousness Overall: oriented to person, place and time 03/27/2018 None Full Exam - General 1994 Psychiatric mood and affect Overall: normal mood and affect 03/27/2018 None Full Exam - General 1994 Integument inspection of skin Overall: few scattered moles, no gross abnormalities 03/27/2018 None Full Exam - General 1994 Constitutional general appearance Overall: well developed 03/19/2018 None Full Exam - General 1994 Constitutional general appearance Overall: in no acute distress 03/19/2018 None Full Exam - General 1994 Constitutional general appearance Overall: well nourished 03/19/2018 None Full Exam - General 1994 Eyes pupils and irises Overall: pupils equal, round, reactive to light and accomodation 03/19/2018 None Full Exam - General 1994 Ears/Nose/Throat otoscopic exam Overall: external auditory canals clear 03/19/2018 None Full Exam - General 1994 Ears/Nose/Throat otoscopic exam Overall: tympanic membranes clear 03/19/2018 None Full Exam - General 1994 Ears/Nose/Throat oral cavity/pharynx/larynx Overall: no masses 03/19/2018 None Full Exam - General 1994 Respiratory auscultation Overall: breath sounds clear bilaterally 03/19/2018 None Full Exam - General 1994 Respiratory respiratory effort/rhythm Overall: no retractions 03/19/2018 None Full Exam - General 1994 Respiratory respiratory effort/rhythm Overall: normal rate 03/19/2018 None Full Exam - General 1994 Cardiovascular auscultation of heart Overall: regular rate 03/19/2018 None Full Exam - General 1994 Cardiovascular auscultation of heart Overall: normal heart sounds 03/19/2018 None Full Exam - General 1994 Cardiovascular auscultation of heart Overall: no murmurs 03/19/2018 None Full Exam - General 1994 Abdomen abdominal exam Overall: no tenderness 03/19/2018 None Full Exam - General 1994 Abdomen abdominal exam Overall: normal bowel sounds 03/19/2018 None Full Exam - General 1994 Abdomen abdominal exam Contour: rounded 03/19/2018 None Full Exam - General 1994 Musculoskeletal spine, ribs and pelvis Overall: good posture 03/19/2018 None Full Exam - General 1994 Neurologic gait Overall: no ataxia, no unsteadiness 03/19/2018 None Full Exam - General 1994 Psychiatric orientation/consciousness Overall: oriented to person, place and time 03/19/2018 None Full Exam - General 1994 Psychiatric mood and affect Overall: normal mood and affect 03/19/2018 None Full Exam - General 1994 Ears/Nose/Throat oral cavity/pharynx/larynx Oral mucosa: erythroplakia 03/19/2018 None Full Exam - General 1994 Ears/Nose/Throat oral cavity/pharynx/larynx Oral mucosa: thrush 03/19/2018 None Full Exam - General 1994 Musculoskeletal spine, ribs and pelvis Palpation: tender at greater trochanter 03/19/2018 None Full Exam - General 1994 Constitutional general appearance Overall: well developed 01/30/2018 None Full Exam - General 1994 Constitutional general appearance Overall: in no acute distress 01/30/2018 None Full Exam - General 1994 Constitutional general appearance Overall: well nourished 01/30/2018 None Full Exam - General 1994 Eyes pupils and irises Overall: pupils equal, round, reactive to light and accomodation 01/30/2018 None Full Exam - General 1994 Ears/Nose/Throat otoscopic exam Overall: external auditory canals clear 01/30/2018 None Full Exam - General 1994 Ears/Nose/Throat otoscopic exam Overall: tympanic membranes clear 01/30/2018 None Full Exam - General 1994 Ears/Nose/Throat oral cavity/pharynx/larynx Overall: oral mucosa clear 01/30/2018 None Full Exam - General 1994 Ears/Nose/Throat oral cavity/pharynx/larynx Overall: oropharyngeal mucosa clear 01/30/2018 None Full Exam - General 1994 Ears/Nose/Throat oral cavity/pharynx/larynx Overall: no masses 01/30/2018 None Full Exam - General 1994 Respiratory auscultation Overall: breath sounds clear bilaterally 01/30/2018 None Full Exam - General 1994 Respiratory respiratory effort/rhythm Overall: no retractions 01/30/2018 None Full Exam - General 1994 Respiratory respiratory effort/rhythm Overall: normal rate 01/30/2018 None Full Exam - General 1994 Cardiovascular auscultation of heart Overall: regular rate 01/30/2018 None Full Exam - General 1994 Cardiovascular auscultation of heart Overall: normal heart sounds 01/30/2018 None Full Exam - General 1994 Cardiovascular auscultation of heart Overall: no murmurs 01/30/2018 None Full Exam - General 1994 Abdomen abdominal exam Overall: no tenderness 01/30/2018 None Full Exam - General 1994 Abdomen abdominal exam Overall: normal bowel sounds 01/30/2018 None Full Exam - General 1994 Abdomen abdominal exam Contour: rounded 01/30/2018 None Full Exam - General 1994 Musculoskeletal digits and nails Overall: no clubbing 01/30/2018 None Full Exam - General 1994 Musculoskeletal digits and nails Overall: digits benign 01/30/2018 None Full Exam - General 1994 Musculoskeletal spine, ribs and pelvis Overall: sacroiliac joint benign 01/30/2018 None Full Exam - General 1994 Musculoskeletal spine, ribs and pelvis Posture: lordosis 01/30/2018 None Full Exam - General 1994 Musculoskeletal gait and station Overall: normal gait 01/30/2018 None Full Exam - General 1994 Musculoskeletal gait and station Overall: normal station 01/30/2018 None Full Exam - General 1994 Neurologic gait Overall: no ataxia, no unsteadiness 01/30/2018 None Full Exam - General 1994 Psychiatric orientation/consciousness Overall: oriented to person, place and time 01/30/2018 None Full Exam - General 1994 Psychiatric mood and affect Overall: normal mood and affect 01/30/2018 None Full Exam - General 1994 Constitutional general appearance Overall: well developed 12/26/2017 None Full Exam - General 1994 Constitutional general appearance Overall: in no acute distress 12/26/2017 None Full Exam - General 1994 Constitutional general appearance Overall: well nourished 12/26/2017 None Full Exam - General 1994 Eyes pupils and irises Overall: pupils equal, round, reactive to light and accomodation 12/26/2017 None Full Exam - General 1994 Ears/Nose/Throat otoscopic exam Overall: external auditory canals clear 12/26/2017 None Full Exam - General 1994 Ears/Nose/Throat otoscopic exam Overall: tympanic membranes clear 12/26/2017 None Full Exam - General 1994 Ears/Nose/Throat oral cavity/pharynx/larynx Overall: oral mucosa clear 12/26/2017 None Full Exam - General 1995 Ears/Nose/Throat oral cavity/pharynx/larynx Overall: oropharyngeal mucosa clear 12/26/2017 None Full Exam - General 1994 Ears/Nose/Throat oral cavity/pharynx/larynx Overall: no masses 12/26/2017 None Full Exam - General 1994 Respiratory auscultation Overall: breath sounds clear bilaterally 12/26/2017 None Full Exam - General 1994 Respiratory respiratory effort/rhythm Overall: no retractions 12/26/2017 None Full Exam - General 1994 Respiratory respiratory effort/rhythm Overall: normal rate 12/26/2017 None Full Exam - General 1994 Cardiovascular auscultation of heart Overall: regular rate 12/26/2017 None Full Exam - General 1994 Cardiovascular auscultation of heart Overall: normal heart sounds 12/26/2017 None Full Exam - General 1994 Cardiovascular auscultation of heart Overall: no murmurs 12/26/2017 None Full Exam - General 1994 Abdomen abdominal exam Overall: no tenderness 12/26/2017 None Full Exam - General 1994 Abdomen abdominal exam Overall: normal bowel sounds 12/26/2017 None Full Exam - General 1994 Abdomen abdominal exam Contour: rounded 12/26/2017 None Full Exam - General 1994 Musculoskeletal digits and nails Overall: no clubbing 12/26/2017 None Full Exam - General 1994 Musculoskeletal digits and nails Overall: digits benign 12/26/2017 None Full Exam - General 1994 Musculoskeletal spine, ribs and pelvis Overall: sacroiliac joint benign 12/26/2017 None Full Exam - General 1994 Musculoskeletal spine, ribs and pelvis Posture: lordosis 12/26/2017 None Full Exam - General 1994 Musculoskeletal gait and station Overall: normal gait 12/26/2017 None Full Exam - General 1994 Musculoskeletal gait and station Overall: normal station 12/26/2017 None Full Exam - General 1994 Neurologic gait Overall: no ataxia, no unsteadiness 12/26/2017 None Full Exam - General 1994 Psychiatric orientation/consciousness Overall: oriented to person, place and time 12/26/2017 None Full Exam - General 1994 Psychiatric mood and affect Overall: normal mood and affect 12/26/2017 None Full Exam - General 1994 Constitutional general appearance Overall: well developed 11/21/2017 None Full Exam - General 1994 Constitutional general appearance Overall: in no acute distress 11/21/2017 None Full Exam - General 1994 Constitutional general appearance Overall: well nourished 11/21/2017 None Full Exam - General 1994 Eyes conjunctiva/eyelids Overall: conjunctiva clear 11/21/2017 None Full Exam - General 1994 Eyes conjunctiva/eyelids Overall: cornea clear 11/21/2017 None Full Exam - General 1994 Eyes conjunctiva/eyelids Overall: eyelids normal 11/21/2017 None Full Exam - General 1994 Eyes pupils and irises Overall: pupils equal, round, reactive to light and accomodation 11/21/2017 None Full Exam - General 1994 Ears/Nose/Throat otoscopic exam Overall: external auditory canals clear 11/21/2017 None Full Exam - General 1994 Ears/Nose/Throat otoscopic exam Overall: tympanic membranes clear 11/21/2017 None Full Exam - General 1994 Ears/Nose/Throat lips/teeth/gingiva Overall: benign lips 11/21/2017 None Full Exam - General 1994 Ears/Nose/Throat oral cavity/pharynx/larynx Overall: oral mucosa clear 11/21/2017 None Full Exam - General 1994 Ears/Nose/Throat oral cavity/pharynx/larynx Overall: oropharyngeal mucosa clear 11/21/2017 None Full Exam - General 1994 Respiratory respiratory effort/rhythm Overall: no retractions 11/21/2017 None Full Exam - General 1994 Respiratory respiratory effort/rhythm Overall: normal rate 11/21/2017 None Full Exam - General 1994 Respiratory auscultation Overall: breath sounds clear bilaterally 11/21/2017 None Full Exam - General 1994 Cardiovascular auscultation of heart Overall: regular rate 11/21/2017 None Full Exam - General 1994 Cardiovascular auscultation of heart Overall: normal heart sounds 11/21/2017 None Full Exam - General 1994 Abdomen abdominal exam Overall: normal bowel sounds 11/21/2017 None Full Exam - General 1994 Abdomen abdominal exam Overall: no tenderness 11/21/2017 None Full Exam - General 1994 Musculoskeletal head and neck Overall: head atraumatic 11/21/2017 None Full Exam - General 1994 Musculoskeletal gait and station Overall: normal station 11/21/2017 None Full Exam - General 1994 Musculoskeletal gait and station Overall: normal gait 11/21/2017 None Full Exam - General 1994 Neurologic cranial nerves Overall: crainial nerves 2 - 12 grossly intact 11/21/2017 None Full Exam - General 1994 Psychiatric orientation/consciousness Overall: oriented to person, place and time 11/21/2017 None Full Exam - General 1994 Psychiatric mood and affect Overall: normal mood and affect 11/21/2017 None Full Exam - General 1994 Psychiatric appearance Overall: well-groomed, good eye contact 11/21/2017 None Full Exam - General 1994 Constitutional general appearance Overall: well developed 10/19/2017 None Full Exam - General 1994 Constitutional general appearance Overall: in no acute distress 10/19/2017 None Full Exam - General 1994 Constitutional general appearance Overall: well nourished 10/19/2017 None Full Exam - General 1994 Eyes pupils and irises Overall: pupils equal, round, reactive to light and accomodation 10/19/2017 None Full Exam - General 1994 Ears/Nose/Throat otoscopic exam Overall: external auditory canals clear 10/19/2017 None Full Exam - General 1994 Ears/Nose/Throat otoscopic exam Overall: tympanic membranes clear 10/19/2017 None Full Exam - General 1994 Ears/Nose/Throat oral cavity/pharynx/larynx Overall: oral mucosa clear 10/19/2017 None Full Exam - General 1994 Ears/Nose/Throat oral cavity/pharynx/larynx Overall: oropharyngeal mucosa clear 10/19/2017 None Full Exam - General 1994 Ears/Nose/Throat oral cavity/pharynx/larynx Overall: no masses 10/19/2017 None Full Exam - General 1994 Respiratory auscultation Overall: breath sounds clear bilaterally 10/19/2017 None Full Exam - General 1994 Respiratory respiratory effort/rhythm Overall: no retractions 10/19/2017 None Full Exam - General 1994 Respiratory respiratory effort/rhythm Overall: normal rate 10/19/2017 None Full Exam - General 1994 Cardiovascular auscultation of heart Overall: regular rate 10/19/2017 None Full Exam - General 1994 Cardiovascular auscultation of heart Overall: normal heart sounds 10/19/2017 None Full Exam - General 1994 Cardiovascular auscultation of heart Overall: no murmurs 10/19/2017 None Full Exam - General 1994 Abdomen abdominal exam Overall: no tenderness 10/19/2017 None Full Exam - General 1994 Abdomen abdominal exam Overall: normal bowel sounds 10/19/2017 None Full Exam - General 1994 Abdomen abdominal exam Contour: rounded 10/19/2017 None Full Exam - General 1994 Musculoskeletal digits and nails Overall: no clubbing 10/19/2017 None Full Exam - General 1994 Musculoskeletal digits and nails Overall: digits benign 10/19/2017 None Full Exam - General 1994 Musculoskeletal spine, ribs and pelvis Overall: spine benign 10/19/2017 None Full Exam - General 1994 Musculoskeletal spine, ribs and pelvis Overall: sacroiliac joint benign 10/19/2017 None Full Exam - General 1994 Musculoskeletal spine, ribs and pelvis Overall: good posture 10/19/2017 None Full Exam - General 1994 Musculoskeletal gait and station Overall: normal gait 10/19/2017 None Full Exam - General 1994 Musculoskeletal gait and station Overall: normal station 10/19/2017 None Full Exam - General 1994 Neurologic gait Overall: no ataxia, no unsteadiness 10/19/2017 None Full Exam - General 1994 Psychiatric orientation/consciousness Overall: oriented to person, place and time 10/19/2017 None Full Exam - General 1994 Psychiatric mood and affect Overall: normal mood and affect 10/19/2017 None Full Exam - General 1994 Constitutional general appearance Overall: well developed 09/18/2017 None Full Exam - General 1994 Constitutional general appearance Overall: in no acute distress 09/18/2017 None Full Exam - General 1994 Constitutional general appearance Overall: well nourished 09/18/2017 None Full Exam - General 1994 Eyes pupils and irises Overall: pupils equal, round, reactive to light and accomodation 09/18/2017 None Full Exam - General 1994 Ears/Nose/Throat otoscopic exam Overall: external auditory canals clear 09/18/2017 None Full Exam - General 1994 Ears/Nose/Throat otoscopic exam Overall: tympanic membranes clear 09/18/2017 None Full Exam - General 1994 Ears/Nose/Throat oral cavity/pharynx/larynx Overall: oral mucosa clear 09/18/2017 None Full Exam - General 1994 Ears/Nose/Throat oral cavity/pharynx/larynx Overall: oropharyngeal mucosa clear 09/18/2017 None Full Exam - General 1994 Ears/Nose/Throat oral cavity/pharynx/larynx Overall: no masses 09/18/2017 None Full Exam - General 1994 Respiratory auscultation Overall: breath sounds clear bilaterally 09/18/2017 None Full Exam - General 1994 Respiratory respiratory effort/rhythm Overall: no retractions 09/18/2017 None Full Exam - General 1994 Respiratory respiratory effort/rhythm Overall: normal rate 09/18/2017 None Full Exam - General 1994 Cardiovascular auscultation of heart Overall: regular rate 09/18/2017 None Full Exam - General 1994 Cardiovascular auscultation of heart Overall: normal heart sounds 09/18/2017 None Full Exam - General 1994 Cardiovascular auscultation of heart Overall: no murmurs 09/18/2017 None Full Exam - General 1994 Abdomen abdominal exam Overall: no tenderness 09/18/2017 None Full Exam - General 1994 Abdomen abdominal exam Overall: normal bowel sounds 09/18/2017 None Full Exam - General 1994 Abdomen abdominal exam Contour: rounded 09/18/2017 None Full Exam - General 1994 Musculoskeletal digits and nails Overall: no clubbing 09/18/2017 None Full Exam - General 1994 Musculoskeletal digits and nails Overall: digits benign 09/18/2017 None Full Exam - General 1994 Musculoskeletal spine, ribs and pelvis Overall: spine benign 09/18/2017 None Full Exam - General 1994 Musculoskeletal spine, ribs and pelvis Overall: sacroiliac joint benign 09/18/2017 None Full Exam - General 1994 Musculoskeletal spine, ribs and pelvis Overall: good posture 09/18/2017 None Full Exam - General 1994 Musculoskeletal gait and station Overall: normal gait 09/18/2017 None Full Exam - General 1994 Musculoskeletal gait and station Overall: normal station 09/18/2017 None Full Exam - General 1994 Neurologic gait Overall: no ataxia, no unsteadiness 09/18/2017 None Full Exam - General 1994 Psychiatric orientation/consciousness Overall: oriented to person, place and time 09/18/2017 None Full Exam - General 1994 Psychiatric mood and affect Overall: normal mood and affect 09/18/2017 None Full Exam - General 1994 Constitutional general appearance Overall: well developed 07/21/2017 None Full Exam - General 1994 Constitutional general appearance Overall: in no acute distress 07/21/2017 None Full Exam - General 1994 Constitutional general appearance Overall: well nourished 07/21/2017 None Full Exam - General 1994 Eyes pupils and irises Overall: pupils equal, round, reactive to light and accomodation 07/21/2017 None Full Exam - General 1994 Ears/Nose/Throat otoscopic exam Overall: external auditory canals clear 07/21/2017 None Full Exam - General 1994 Ears/Nose/Throat otoscopic exam Overall: tympanic membranes clear 07/21/2017 None Full Exam - General 1994 Ears/Nose/Throat oral cavity/pharynx/larynx Overall: oral mucosa clear 07/21/2017 None Full Exam - General 1994 Ears/Nose/Throat oral cavity/pharynx/larynx Overall: oropharyngeal mucosa clear 07/21/2017 None Full Exam - General 1994 Ears/Nose/Throat oral cavity/pharynx/larynx Overall: no masses 07/21/2017 None Full Exam - General 1994 Respiratory auscultation Overall: breath sounds clear bilaterally 07/21/2017 None Full Exam - General 1994 Respiratory respiratory effort/rhythm Overall: no retractions 07/21/2017 None Full Exam - General 1994 Respiratory respiratory effort/rhythm Overall: normal rate 07/21/2017 None Full Exam - General 1994 Cardiovascular auscultation of heart Overall: regular rate 07/21/2017 None Full Exam - General 1994 Cardiovascular auscultation of heart Overall: normal heart sounds 07/21/2017 None Full Exam - General 1994 Cardiovascular auscultation of heart Overall: no murmurs 07/21/2017 None Full Exam - General 1994 Abdomen abdominal exam Overall: no tenderness 07/21/2017 None Full Exam - General 1994 Abdomen abdominal exam Overall: normal bowel sounds 07/21/2017 None Full Exam - General 1994 Abdomen abdominal exam Contour: rounded 07/21/2017 None Full Exam - General 1994 Musculoskeletal digits and nails Overall: no clubbing 07/21/2017 None Full Exam - General 1994 Musculoskeletal digits and nails Overall: digits benign 07/21/2017 None Full Exam - General 1994 Musculoskeletal spine, ribs and pelvis Overall: spine benign 07/21/2017 None Full Exam - General 1994 Musculoskeletal spine, ribs and pelvis Overall: sacroiliac joint benign 07/21/2017 None Full Exam - General 1994 Musculoskeletal spine, ribs and pelvis Overall: good posture 07/21/2017 None Full Exam - General 1994 Musculoskeletal gait and station Overall: normal gait 07/21/2017 None Full Exam - General 1994 Musculoskeletal gait and station Overall: normal station 07/21/2017 None Full Exam - General 1994 Neurologic gait Overall: no ataxia, no unsteadiness 07/21/2017 None Full Exam - General 1994 Psychiatric orientation/consciousness Overall: oriented to person, place and time 07/21/2017 None Full Exam - General 1994 Psychiatric mood and affect Overall: normal mood and affect 07/21/2017 None Full Exam - General 1994 Constitutional general appearance Overall: well developed 05/04/2017 None Full Exam - General 1994 Constitutional general appearance Overall: in no acute distress 05/04/2017 None Full Exam - General 1994 Constitutional general appearance Overall: well nourished 05/04/2017 None Full Exam - General 1994 Eyes pupils and irises Overall: pupils equal, round, reactive to light and accomodation 05/04/2017 None Full Exam - General 1994 Ears/Nose/Throat otoscopic exam Overall: external auditory canals clear 05/04/2017 None Full Exam - General 1994 Ears/Nose/Throat otoscopic exam Overall: tympanic membranes clear 05/04/2017 None Full Exam - General 1994 Ears/Nose/Throat oral cavity/pharynx/larynx Overall: oral mucosa clear 05/04/2017 None Full Exam - General 1994 Ears/Nose/Throat oral cavity/pharynx/larynx Overall: oropharyngeal mucosa clear 05/04/2017 None Full Exam - General 1994 Ears/Nose/Throat oral cavity/pharynx/larynx Overall: no masses 05/04/2017 None Full Exam - General 1994 Respiratory auscultation Overall: breath sounds clear bilaterally 05/04/2017 None Full Exam - General 1994 Respiratory respiratory effort/rhythm Overall: no retractions 05/04/2017 None Full Exam - General 1994 Respiratory respiratory effort/rhythm Overall: normal rate 05/04/2017 None Full Exam - General 1994 Cardiovascular auscultation of heart Overall: regular rate 05/04/2017 None Full Exam - General 1994 Cardiovascular auscultation of heart Overall: normal heart sounds 05/04/2017 None Full Exam - General 1994 Cardiovascular auscultation of heart Overall: no murmurs 05/04/2017 None Full Exam - General 1994 Abdomen abdominal exam Overall: no tenderness 05/04/2017 None Full Exam - General 1994 Abdomen abdominal exam Overall: normal bowel sounds 05/04/2017 None Full Exam - General 1994 Abdomen abdominal exam Contour: rounded 05/04/2017 None Full Exam - General 1994 Musculoskeletal digits and nails Overall: no clubbing 05/04/2017 None Full Exam - General 1994 Musculoskeletal digits and nails Overall: digits benign 05/04/2017 None Full Exam - General 1994 Musculoskeletal spine, ribs and pelvis Overall: spine benign 05/04/2017 None Full Exam - General 1994 Musculoskeletal spine, ribs and pelvis Overall: sacroiliac joint benign 05/04/2017 None Full Exam - General 1994 Musculoskeletal spine, ribs and pelvis Overall: good posture 05/04/2017 None Full Exam - General 1994 Musculoskeletal gait and station Overall: normal gait 05/04/2017 None Full Exam - General 1994 Musculoskeletal gait and station Overall: normal station 05/04/2017 None Full Exam - General 1994 Neurologic gait Overall: no ataxia, no unsteadiness 05/04/2017 None Full Exam - General 1994 Psychiatric orientation/consciousness Overall: oriented to person, place and time 05/04/2017 None Full Exam - General 1994 Psychiatric mood and affect Overall: normal mood and affect 05/04/2017 None Full Exam - General 1994 Constitutional general appearance Overall: well developed 03/30/2017 None Full Exam - General 1994 Constitutional general appearance Overall: in no acute distress 03/30/2017 None Full Exam - General 1994 Constitutional general appearance Overall: well nourished 03/30/2017 None Full Exam - General 1994 Eyes pupils and irises Overall: pupils equal, round, reactive to light and accomodation 03/30/2017 None Full Exam - General 1994 Ears/Nose/Throat oral cavity/pharynx/larynx Overall: oral mucosa clear 03/30/2017 None Full Exam - General 1994 Ears/Nose/Throat oral cavity/pharynx/larynx Overall: oropharyngeal mucosa clear 03/30/2017 None Full Exam - General 1994 Ears/Nose/Throat oral cavity/pharynx/larynx Overall: no masses 03/30/2017 None Full Exam - General 1994 Respiratory auscultation Overall: breath sounds clear bilaterally 03/30/2017 None Full Exam - General 1994 Respiratory respiratory effort/rhythm Overall: no retractions 03/30/2017 None Full Exam - General 1994 Respiratory respiratory effort/rhythm Overall: normal rate 03/30/2017 None Full Exam - General 1994 Cardiovascular auscultation of heart Overall: regular rate 03/30/2017 None Full Exam - General 1994 Cardiovascular auscultation of heart Overall: normal heart sounds 03/30/2017 None Full Exam - General 1994 Cardiovascular auscultation of heart Overall: no murmurs 03/30/2017 None Full Exam - General 1994 Abdomen abdominal exam Contour: rounded 03/30/2017 None Full Exam - General 1994 Psychiatric orientation/consciousness Overall: oriented to person, place and time 03/30/2017 None Full Exam - General 1994 Psychiatric mood and affect Overall: normal mood and affect 03/30/2017 None Full Exam - General 1994 Constitutional general appearance Overall: well developed 03/02/2017 None Full Exam - General 1994 Constitutional general appearance Overall: in no acute distress 03/02/2017 None Full Exam - General 1994 Constitutional general appearance Overall: well nourished 03/02/2017 None Full Exam - General 1994 Eyes pupils and irises Overall: pupils equal, round, reactive to light and accomodation 03/02/2017 None Full Exam - General 1994 Ears/Nose/Throat otoscopic exam Overall: external auditory canals clear 03/02/2017 None Full Exam - General 1994 Ears/Nose/Throat otoscopic exam Overall: tympanic membranes clear 03/02/2017 None Full Exam - General 1995 Ears/Nose/Throat oral cavity/pharynx/larynx Overall: oral mucosa clear 03/02/2017 None Full Exam - General 1994 Ears/Nose/Throat oral cavity/pharynx/larynx Overall: oropharyngeal mucosa clear 03/02/2017 None Full Exam - General 1995 Ears/Nose/Throat oral cavity/pharynx/larynx Overall: no masses 03/02/2017 None Full Exam - General 1994 Respiratory auscultation Overall: breath sounds clear bilaterally 03/02/2017 None Full Exam - General 1994 Respiratory respiratory effort/rhythm Overall: no retractions 03/02/2017 None Full Exam - General 1994 Respiratory respiratory effort/rhythm Overall: normal rate 03/02/2017 None Full Exam - General 1994 Cardiovascular auscultation of heart Overall: regular rate 03/02/2017 None Full Exam - General 1994 Cardiovascular auscultation of heart Overall: normal heart sounds 03/02/2017 None Full Exam - General 1994 Cardiovascular auscultation of heart Overall: no murmurs 03/02/2017 None Full Exam - General 1994 Abdomen abdominal exam Overall: no tenderness 03/02/2017 None Full Exam - General 1994 Abdomen abdominal exam Overall: normal bowel sounds 03/02/2017 None Full Exam - General 1994 Abdomen abdominal exam Contour: rounded 03/02/2017 None Full Exam - General 1994 Musculoskeletal digits and nails Overall: no clubbing 03/02/2017 None Full Exam - General 1994 Musculoskeletal digits and nails Overall: digits benign 03/02/2017 None Full Exam - General 1994 Musculoskeletal spine, ribs and pelvis Overall: sacroiliac joint benign 03/02/2017 None Full Exam - General 1994 Musculoskeletal spine, ribs and pelvis Posture: lordosis 03/02/2017 None Full Exam - General 1994 Musculoskeletal gait and station Overall: normal gait 03/02/2017 None Full Exam - General 1994 Musculoskeletal gait and station Overall: normal station 03/02/2017 None Full Exam - General 1994 Neurologic gait Overall: no ataxia, no unsteadiness 03/02/2017 None Full Exam - General 1994 Psychiatric orientation/consciousness Overall: oriented to person, place and time 03/02/2017 None Full Exam - General 1994 Psychiatric mood and affect Overall: normal mood and affect 03/02/2017 None Full Exam - General 1994 Constitutional general appearance Overall: well developed 01/31/2017 None Full Exam - General 1994 Constitutional general appearance Overall: in no acute distress 01/31/2017 None Full Exam - General 1994 Constitutional general appearance Overall: well nourished 01/31/2017 None Full Exam - General 1994 Eyes pupils and irises Overall: pupils equal, round, reactive to light and accomodation 01/31/2017 None Full Exam - General 1994 Ears/Nose/Throat otoscopic exam Overall: external auditory canals clear 01/31/2017 None Full Exam - General 1994 Ears/Nose/Throat otoscopic exam Overall: tympanic membranes clear 01/31/2017 None Full Exam - General 1994 Ears/Nose/Throat oral cavity/pharynx/larynx Overall: oral mucosa clear 01/31/2017 None Full Exam - General 1994 Ears/Nose/Throat oral cavity/pharynx/larynx Overall: oropharyngeal mucosa clear 01/31/2017 None Full Exam - General 1994 Ears/Nose/Throat oral cavity/pharynx/larynx Overall: no masses 01/31/2017 None Full Exam - General 1994 Respiratory auscultation Overall: breath sounds clear bilaterally 01/31/2017 None Full Exam - General 1994 Respiratory respiratory effort/rhythm Overall: no retractions 01/31/2017 None Full Exam - General 1994 Respiratory respiratory effort/rhythm Overall: normal rate 01/31/2017 None Full Exam - General 1994 Cardiovascular auscultation of heart Overall: regular rate 01/31/2017 None Full Exam - General 1994 Cardiovascular auscultation of heart Overall: normal heart sounds 01/31/2017 None Full Exam - General 1994 Cardiovascular auscultation of heart Overall: no murmurs 01/31/2017 None Full Exam - General 1994 Abdomen abdominal exam Overall: no tenderness 01/31/2017 None Full Exam - General 1994 Abdomen abdominal exam Overall: normal bowel sounds 01/31/2017 None Full Exam - General 1994 Abdomen abdominal exam Contour: rounded 01/31/2017 None Full Exam - General 1994 Musculoskeletal digits and nails Overall: no clubbing 01/31/2017 None Full Exam - General 1994 Musculoskeletal digits and nails Overall: digits benign 01/31/2017 None Full Exam - General 1994 Musculoskeletal spine, ribs and pelvis Overall: spine benign 01/31/2017 None Full Exam - General 1994 Musculoskeletal spine, ribs and pelvis Overall: sacroiliac joint benign 01/31/2017 None Full Exam - General 1994 Musculoskeletal spine, ribs and pelvis Overall: good posture 01/31/2017 None Full Exam - General 1994 Musculoskeletal gait and station Overall: normal gait 01/31/2017 None Full Exam - General 1994 Musculoskeletal gait and station Overall: normal station 01/31/2017 None Full Exam - General 1994 Neurologic gait Overall: no ataxia, no unsteadiness 01/31/2017 None Full Exam - General 1994 Psychiatric orientation/consciousness Overall: oriented to person, place and time 01/31/2017 None Full Exam - General 1994 Psychiatric mood and affect Overall: normal mood and affect 01/31/2017 None Full Exam - General 1994 Constitutional general appearance Overall: well developed 10/25/2016 None Full Exam - General 1994 Constitutional general appearance Overall: in no acute distress 10/25/2016 None Full Exam - General 1994 Constitutional general appearance Overall: well nourished 10/25/2016 None Full Exam - General 1994 Eyes pupils and irises Overall: pupils equal, round, reactive to light and accomodation 10/25/2016 None Full Exam - General 1994 Ears/Nose/Throat otoscopic exam Overall: external auditory canals clear 10/25/2016 None Full Exam - General 1994 Ears/Nose/Throat otoscopic exam Overall: tympanic membranes clear 10/25/2016 None Full Exam - General 1994 Ears/Nose/Throat oral cavity/pharynx/larynx Overall: oral mucosa clear 10/25/2016 None Full Exam - General 1994 Ears/Nose/Throat oral cavity/pharynx/larynx Overall: oropharyngeal mucosa clear 10/25/2016 None Full Exam - General 1994 Ears/Nose/Throat oral cavity/pharynx/larynx Overall: no masses 10/25/2016 None Full Exam - General 1994 Respiratory auscultation Overall: breath sounds clear bilaterally 10/25/2016 None Full Exam - General 1994 Respiratory respiratory effort/rhythm Overall: no retractions 10/25/2016 None Full Exam - General 1994 Respiratory respiratory effort/rhythm Overall: normal rate 10/25/2016 None Full Exam - General 1994 Cardiovascular auscultation of heart Overall: regular rate 10/25/2016 None Full Exam - General 1994 Cardiovascular auscultation of heart Overall: normal heart sounds 10/25/2016 None Full Exam - General 1994 Cardiovascular auscultation of heart Overall: no murmurs 10/25/2016 None Full Exam - General 1994 Abdomen abdominal exam Overall: no tenderness 10/25/2016 None Full Exam - General 1994 Abdomen abdominal exam Overall: normal bowel sounds 10/25/2016 None Full Exam - General 1994 Abdomen abdominal exam Contour: rounded 10/25/2016 None Full Exam - General 1994 Musculoskeletal digits and nails Overall: no clubbing 10/25/2016 None Full Exam - General 1994 Musculoskeletal digits and nails Overall: digits benign 10/25/2016 None Full Exam - General 1994 Musculoskeletal spine, ribs and pelvis Overall: sacroiliac joint benign 10/25/2016 None Full Exam - General 1994 Musculoskeletal spine, ribs and pelvis Posture: lordosis 10/25/2016 None Full Exam - General 1994 Musculoskeletal gait and station Overall: normal gait 10/25/2016 None Full Exam - General 1994 Musculoskeletal gait and station Overall: normal station 10/25/2016 None Full Exam - General 1994 Neurologic gait Overall: no ataxia, no unsteadiness 10/25/2016 None Full Exam - General 1994 Psychiatric orientation/consciousness Overall: oriented to person, place and time 10/25/2016 None Full Exam - General 1994 Psychiatric mood and affect Overall: normal mood and affect 10/25/2016 None Full Exam - General 1994 Constitutional general appearance Overall: well developed 07/27/2016 None Full Exam - General 1994 Constitutional general appearance Overall: in no acute distress 07/27/2016 None Full Exam - General 1994 Constitutional general appearance Overall: well nourished 07/27/2016 None Full Exam - General 1994 Eyes pupils and irises Overall: pupils equal, round, reactive to light and accomodation 07/27/2016 None Full Exam - General 1994 Ears/Nose/Throat otoscopic exam Overall: external auditory canals clear 07/27/2016 None Full Exam - General 1994 Ears/Nose/Throat otoscopic exam Overall: tympanic membranes clear 07/27/2016 None Full Exam - General 1994 Ears/Nose/Throat oral cavity/pharynx/larynx Overall: oral mucosa clear 07/27/2016 None Full Exam - General 1994 Ears/Nose/Throat oral cavity/pharynx/larynx Overall: oropharyngeal mucosa clear 07/27/2016 None Full Exam - General 1994 Ears/Nose/Throat oral cavity/pharynx/larynx Overall: no masses 07/27/2016 None Full Exam - General 1994 Respiratory auscultation Overall: breath sounds clear bilaterally 07/27/2016 None Full Exam - General 1994 Respiratory respiratory effort/rhythm Overall: no retractions 07/27/2016 None Full Exam - General 1994 Respiratory respiratory effort/rhythm Overall: normal rate 07/27/2016 None Full Exam - General 1994 Cardiovascular auscultation of heart Overall: regular rate 07/27/2016 None Full Exam - General 1994 Cardiovascular auscultation of heart Overall: normal heart sounds 07/27/2016 None Full Exam - General 1994 Cardiovascular auscultation of heart Overall: no murmurs 07/27/2016 None Full Exam - General 1994 Abdomen abdominal exam Overall: no tenderness 07/27/2016 None Full Exam - General 1994 Abdomen abdominal exam Overall: normal bowel sounds 07/27/2016 None Full Exam - General 1994 Abdomen abdominal exam Contour: rounded 07/27/2016 None Full Exam - General 1994 Musculoskeletal digits and nails Overall: no clubbing 07/27/2016 None Full Exam - General 1994 Musculoskeletal digits and nails Overall: digits benign 07/27/2016 None Full Exam - General 1994 Musculoskeletal spine, ribs and pelvis Overall: sacroiliac joint benign 07/27/2016 None Full Exam - General 1994 Musculoskeletal spine, ribs and pelvis Posture: lordosis 07/27/2016 None Full Exam - General 1994 Musculoskeletal gait and station Overall: normal gait 07/27/2016 None Full Exam - General 1994 Musculoskeletal gait and station Overall: normal station 07/27/2016 None Full Exam - General 1994 Neurologic gait Overall: no ataxia, no unsteadiness 07/27/2016 None Full Exam - General 1994 Psychiatric orientation/consciousness Overall: oriented to person, place and time 07/27/2016 None Full Exam - General 1994 Psychiatric mood and affect Overall: normal mood and affect 07/27/2016 None Full Exam - General 1994 Constitutional general appearance Overall: well developed 05/26/2016 None Full Exam - General 1994 Constitutional general appearance Overall: in no acute distress 05/26/2016 None Full Exam - General 1994 Constitutional general appearance Overall: well nourished 05/26/2016 None Full Exam - General 1994 Eyes pupils and irises Overall: pupils equal, round, reactive to light and accomodation 05/26/2016 None Full Exam - General 1994 Ears/Nose/Throat otoscopic exam Overall: external auditory canals clear 05/26/2016 None Full Exam - General 1994 Ears/Nose/Throat otoscopic exam Overall: tympanic membranes clear 05/26/2016 None Full Exam - General 1994 Ears/Nose/Throat oral cavity/pharynx/larynx Overall: oral mucosa clear 05/26/2016 None Full Exam - General 1994 Ears/Nose/Throat oral cavity/pharynx/larynx Overall: oropharyngeal mucosa clear 05/26/2016 None Full Exam - General 1994 Ears/Nose/Throat oral cavity/pharynx/larynx Overall: no masses 05/26/2016 None Full Exam - General 1994 Respiratory auscultation Overall: breath sounds clear bilaterally 05/26/2016 None Full Exam - General 1994 Respiratory respiratory effort/rhythm Overall: no retractions 05/26/2016 None Full Exam - General 1994 Respiratory respiratory effort/rhythm Overall: normal rate 05/26/2016 None Full Exam - General 1994 Cardiovascular auscultation of heart Overall: regular rate 05/26/2016 None Full Exam - General 1994 Cardiovascular auscultation of heart Overall: normal heart sounds 05/26/2016 None Full Exam - General 1994 Cardiovascular auscultation of heart Overall: no murmurs 05/26/2016 None Full Exam - General 1994 Abdomen abdominal exam Overall: no tenderness 05/26/2016 None Full Exam - General 1994 Abdomen abdominal exam Overall: normal bowel sounds 05/26/2016 None Full Exam - General 1994 Abdomen abdominal exam Contour: rounded 05/26/2016 None Full Exam - General 1994 Musculoskeletal digits and nails Overall: no clubbing 05/26/2016 None Full Exam - General 1994 Musculoskeletal digits and nails Overall: digits benign 05/26/2016 None Full Exam - General 1994 Musculoskeletal spine, ribs and pelvis Overall: sacroiliac joint benign 05/26/2016 None Full Exam - General 1994 Musculoskeletal spine, ribs and pelvis Posture: lordosis 05/26/2016 None Full Exam - General 1994 Musculoskeletal gait and station Overall: normal gait 05/26/2016 None Full Exam - General 1994 Musculoskeletal gait and station Overall: normal station 05/26/2016 None Full Exam - General 1994 Neurologic gait Overall: no ataxia, no unsteadiness 05/26/2016 None Full Exam - General 1994 Psychiatric orientation/consciousness Overall: oriented to person, place and time 05/26/2016 None Full Exam - General 1994 Psychiatric mood and affect Overall: normal mood and affect 05/26/2016 None Full Exam - General 1994 Constitutional general appearance Overall: well developed 05/12/2016 None Full Exam - General 1994 Constitutional general appearance Overall: in no acute distress 05/12/2016 None Full Exam - General 1994 Constitutional general appearance Overall: well nourished 05/12/2016 None Full Exam - General 1994 Eyes pupils and irises Overall: pupils equal, round, reactive to light and accomodation 05/12/2016 None Full Exam - General 1994 Ears/Nose/Throat otoscopic exam Overall: external auditory canals clear 05/12/2016 None Full Exam - General 1994 Ears/Nose/Throat otoscopic exam Overall: tympanic membranes clear 05/12/2016 None Full Exam - General 1994 Ears/Nose/Throat oral cavity/pharynx/larynx Overall: oral mucosa clear 05/12/2016 None Full Exam - General 1994 Ears/Nose/Throat oral cavity/pharynx/larynx Overall: oropharyngeal mucosa clear 05/12/2016 None Full Exam - General 1994 Ears/Nose/Throat oral cavity/pharynx/larynx Overall: no masses 05/12/2016 None Full Exam - General 1994 Respiratory auscultation Overall: breath sounds clear bilaterally 05/12/2016 None Full Exam - General 1994 Respiratory respiratory effort/rhythm Overall: no retractions 05/12/2016 None Full Exam - General 1994 Respiratory respiratory effort/rhythm Overall: normal rate 05/12/2016 None Full Exam - General 1994 Cardiovascular auscultation of heart Overall: regular rate 05/12/2016 None Full Exam - General 1994 Cardiovascular auscultation of heart Overall: normal heart sounds 05/12/2016 None Full Exam - General 1994 Cardiovascular auscultation of heart Overall: no murmurs 05/12/2016 None Full Exam - General 1994 Abdomen abdominal exam Overall: no tenderness 05/12/2016 None Full Exam - General 1994 Abdomen abdominal exam Overall: normal bowel sounds 05/12/2016 None Full Exam - General 1994 Abdomen abdominal exam Contour: rounded 05/12/2016 None Full Exam - General 1994 Musculoskeletal digits and nails Overall: no clubbing 05/12/2016 None Full Exam - General 1994 Musculoskeletal digits and nails Overall: digits benign 05/12/2016 None Full Exam - General 1994 Musculoskeletal spine, ribs and pelvis Overall: sacroiliac joint benign 05/12/2016 None Full Exam - General 1994 Musculoskeletal spine, ribs and pelvis Posture: lordosis 05/12/2016 None Full Exam - General 1994 Musculoskeletal gait and station Overall: normal gait 05/12/2016 None Full Exam - General 1994 Musculoskeletal gait and station Overall: normal station 05/12/2016 None Full Exam - General 1994 Neurologic gait Overall: no ataxia, no unsteadiness 05/12/2016 None Full Exam - General 1994 Psychiatric orientation/consciousness Overall: oriented to person, place and time 05/12/2016 None Full Exam - General 1994 Psychiatric mood and affect Overall: normal mood and affect 05/12/2016 None Full Exam - General 1994 Constitutional general appearance Overall: well developed 02/23/2016 None Full Exam - General 1994 Constitutional general appearance Overall: in no acute distress 02/23/2016 None Full Exam - General 1994 Constitutional general appearance Overall: well nourished 02/23/2016 None Full Exam - General 1994 Eyes pupils and irises Overall: pupils equal, round, reactive to light and accomodation 02/23/2016 None Full Exam - General 1994 Ears/Nose/Throat otoscopic exam Overall: external auditory canals clear 02/23/2016 None Full Exam - General 1994 Ears/Nose/Throat otoscopic exam Overall: tympanic membranes clear 02/23/2016 None Full Exam - General 1994 Ears/Nose/Throat oral cavity/pharynx/larynx Overall: oral mucosa clear 02/23/2016 None Full Exam - General 1994 Ears/Nose/Throat oral cavity/pharynx/larynx Overall: oropharyngeal mucosa clear 02/23/2016 None Full Exam - General 1994 Ears/Nose/Throat oral cavity/pharynx/larynx Overall: no masses 02/23/2016 None Full Exam - General 1994 Respiratory auscultation Overall: breath sounds clear bilaterally 02/23/2016 None Full Exam - General 1994 Respiratory respiratory effort/rhythm Overall: no retractions 02/23/2016 None Full Exam - General 1994 Respiratory respiratory effort/rhythm Overall: normal rate 02/23/2016 None Full Exam - General 1994 Cardiovascular auscultation of heart Overall: regular rate 02/23/2016 None Full Exam - General 1994 Cardiovascular auscultation of heart Overall: normal heart sounds 02/23/2016 None Full Exam - General 1994 Cardiovascular auscultation of heart Overall: no murmurs 02/23/2016 None Full Exam - General 1994 Abdomen abdominal exam Overall: no tenderness 02/23/2016 None Full Exam - General 1994 Abdomen abdominal exam Overall: normal bowel sounds 02/23/2016 None Full Exam - General 1994 Abdomen abdominal exam Contour: rounded 02/23/2016 None Full Exam - General 1994 Musculoskeletal digits and nails Overall: no clubbing 02/23/2016 None Full Exam - General 1994 Musculoskeletal digits and nails Overall: digits benign 02/23/2016 None Full Exam - General 1994 Musculoskeletal spine, ribs and pelvis Overall: sacroiliac joint benign 02/23/2016 None Full Exam - General 1994 Musculoskeletal gait and station Overall: normal gait 02/23/2016 None Full Exam - General 1994 Musculoskeletal gait and station Overall: normal station 02/23/2016 None Full Exam - General 1994 Neurologic gait Overall: no ataxia, no unsteadiness 02/23/2016 None Full Exam - General 1994 Psychiatric orientation/consciousness Overall: oriented to person, place and time 02/23/2016 None Full Exam - General 1994 Psychiatric mood and affect Overall: normal mood and affect 02/23/2016 None Full Exam - General 1994 Musculoskeletal spine, ribs and pelvis Posture: lordosis 02/23/2016 None Full Exam - General 1994 Constitutional general appearance Overall: well developed 12/10/2015 None Full Exam - General 1994 Constitutional general appearance Overall: in no acute distress 12/10/2015 None Full Exam - General 1994 Constitutional general appearance Overall: well nourished 12/10/2015 None Full Exam - General 1994 Eyes pupils and irises Overall: pupils equal, round, reactive to light and accomodation 12/10/2015 None Full Exam - General 1994 Ears/Nose/Throat otoscopic exam Overall: external auditory canals clear 12/10/2015 None Full Exam - General 1994 Ears/Nose/Throat otoscopic exam Overall: tympanic membranes clear 12/10/2015 None Full Exam - General 1994 Ears/Nose/Throat oral cavity/pharynx/larynx Overall: oral mucosa clear 12/10/2015 None Full Exam - General 1994 Ears/Nose/Throat oral cavity/pharynx/larynx Overall: oropharyngeal mucosa clear 12/10/2015 None Full Exam - General 1994 Ears/Nose/Throat oral cavity/pharynx/larynx Overall: no masses 12/10/2015 None Full Exam - General 1994 Respiratory auscultation Overall: breath sounds clear bilaterally 12/10/2015 None Full Exam - General 1994 Respiratory respiratory effort/rhythm Overall: no retractions 12/10/2015 None Full Exam - General 1994 Respiratory respiratory effort/rhythm Overall: normal rate 12/10/2015 None Full Exam - General 1994 Cardiovascular auscultation of heart Overall: regular rate 12/10/2015 None Full Exam - General 1994 Cardiovascular auscultation of heart Overall: normal heart sounds 12/10/2015 None Full Exam - General 1994 Cardiovascular auscultation of heart Overall: no murmurs 12/10/2015 None Full Exam - General 1994 Abdomen abdominal exam Overall: no tenderness 12/10/2015 None Full Exam - General 1994 Abdomen abdominal exam Overall: normal bowel sounds 12/10/2015 None Full Exam - General 1994 Abdomen abdominal exam Contour: rounded 12/10/2015 None Full Exam - General 1994 Musculoskeletal digits and nails Overall: no clubbing 12/10/2015 None Full Exam - General 1994 Musculoskeletal digits and nails Overall: digits benign 12/10/2015 None Full Exam - General 1994 Musculoskeletal spine, ribs and pelvis Overall: spine benign 12/10/2015 None Full Exam - General 1994 Musculoskeletal spine, ribs and pelvis Overall: sacroiliac joint benign 12/10/2015 None Full Exam - General 1994 Musculoskeletal spine, ribs and pelvis Overall: good posture 12/10/2015 None Full Exam - General 1994 Musculoskeletal gait and station Overall: normal gait 12/10/2015 None Full Exam - General 1994 Musculoskeletal gait and station Overall: normal station 12/10/2015 None Full Exam - General 1994 Neurologic gait Overall: no ataxia, no unsteadiness 12/10/2015 None Full Exam - General 1994 Psychiatric orientation/consciousness Overall: oriented to person, place and time 12/10/2015 None Full Exam - General 1994 Psychiatric mood and affect Overall: normal mood and affect 12/10/2015 None Full Exam - General 1994 Constitutional general appearance Overall: well developed 11/10/2015 None Full Exam - General 1994 Constitutional general appearance Overall: in no acute distress 11/10/2015 None Full Exam - General 1994 Constitutional general appearance Overall: well nourished 11/10/2015 None Full Exam - General 1994 Eyes pupils and irises Overall: pupils equal, round, reactive to light and accomodation 11/10/2015 None Full Exam - General 1994 Ears/Nose/Throat otoscopic exam Overall: external auditory canals clear 11/10/2015 None Full Exam - General 1994 Ears/Nose/Throat otoscopic exam Overall: tympanic membranes clear 11/10/2015 None Full Exam - General 1994 Ears/Nose/Throat oral cavity/pharynx/larynx Overall: oral mucosa clear 11/10/2015 None Full Exam - General 1994 Ears/Nose/Throat oral cavity/pharynx/larynx Overall: oropharyngeal mucosa clear 11/10/2015 None Full Exam - General 1994 Ears/Nose/Throat oral cavity/pharynx/larynx Overall: no masses 11/10/2015 None Full Exam - General 1994 Respiratory auscultation Overall: breath sounds clear bilaterally 11/10/2015 None Full Exam - General 1994 Respiratory respiratory effort/rhythm Overall: no retractions 11/10/2015 None Full Exam - General 1994 Respiratory respiratory effort/rhythm Overall: normal rate 11/10/2015 None Full Exam - General 1994 Cardiovascular auscultation of heart Overall: regular rate 11/10/2015 None Full Exam - General 1994 Cardiovascular auscultation of heart Overall: normal heart sounds 11/10/2015 None Full Exam - General 1994 Cardiovascular auscultation of heart Overall: no murmurs 11/10/2015 None Full Exam - General 1994 Abdomen abdominal exam Overall: no tenderness 11/10/2015 None Full Exam - General 1994 Abdomen abdominal exam Overall: normal bowel sounds 11/10/2015 None Full Exam - General 1994 Abdomen abdominal exam Contour: rounded 11/10/2015 None Full Exam - General 1994 Musculoskeletal digits and nails Overall: no clubbing 11/10/2015 None Full Exam - General 1994 Musculoskeletal digits and nails Overall: digits benign 11/10/2015 None Full Exam - General 1994 Musculoskeletal spine, ribs and pelvis Overall: spine benign 11/10/2015 None Full Exam - General 1994 Musculoskeletal spine, ribs and pelvis Overall: sacroiliac joint benign 11/10/2015 None Full Exam - General 1994 Musculoskeletal spine, ribs and pelvis Overall: good posture 11/10/2015 None Full Exam - General 1994 Musculoskeletal gait and station Overall: normal gait 11/10/2015 None Full Exam - General 1994 Musculoskeletal gait and station Overall: normal station 11/10/2015 None Full Exam - General 1994 Neurologic gait Overall: no ataxia, no unsteadiness 11/10/2015 None Full Exam - General 1994 Psychiatric orientation/consciousness Overall: oriented to person, place and time 11/10/2015 None Full Exam - General 1994 Psychiatric mood and affect Overall: normal mood and affect 11/10/2015 None Full Exam - General 1994 Constitutional general appearance Overall: well developed 08/07/2015 None Full Exam - General 1994 Constitutional general appearance Overall: in no acute distress 08/07/2015 None Full Exam - General 1994 Constitutional general appearance Overall: well nourished 08/07/2015 None Full Exam - General 1994 Eyes pupils and irises Overall: pupils equal, round, reactive to light and accomodation 08/07/2015 None Full Exam - General 1994 Ears/Nose/Throat otoscopic exam Overall: external auditory canals clear 08/07/2015 None Full Exam - General 1994 Ears/Nose/Throat otoscopic exam Overall: tympanic membranes clear 08/07/2015 None Full Exam - General 1994 Ears/Nose/Throat oral cavity/pharynx/larynx Overall: oral mucosa clear 08/07/2015 None Full Exam - General 1994 Ears/Nose/Throat oral cavity/pharynx/larynx Overall: oropharyngeal mucosa clear 08/07/2015 None Full Exam - General 1994 Ears/Nose/Throat oral cavity/pharynx/larynx Overall: no masses 08/07/2015 None Full Exam - General 1994 Respiratory auscultation Overall: breath sounds clear bilaterally 08/07/2015 None Full Exam - General 1994 Respiratory respiratory effort/rhythm Overall: no retractions 08/07/2015 None Full Exam - General 1994 Respiratory respiratory effort/rhythm Overall: normal rate 08/07/2015 None Full Exam - General 1994 Cardiovascular auscultation of heart Overall: regular rate 08/07/2015 None Full Exam - General 1994 Cardiovascular auscultation of heart Overall: normal heart sounds 08/07/2015 None Full Exam - General 1994 Cardiovascular auscultation of heart Overall: no murmurs 08/07/2015 None Full Exam - General 1994 Abdomen abdominal exam Overall: no tenderness 08/07/2015 None Full Exam - General 1994 Abdomen abdominal exam Overall: normal bowel sounds 08/07/2015 None Full Exam - General 1994 Abdomen abdominal exam Contour: rounded 08/07/2015 None Full Exam - General 1994 Musculoskeletal digits and nails Overall: no clubbing 08/07/2015 None Full Exam - General 1994 Musculoskeletal digits and nails Overall: digits benign 08/07/2015 None Full Exam - General 1994 Musculoskeletal spine, ribs and pelvis Overall: spine benign 08/07/2015 None Full Exam - General 1994 Musculoskeletal spine, ribs and pelvis Overall: sacroiliac joint benign 08/07/2015 None Full Exam - General 1994 Musculoskeletal spine, ribs and pelvis Overall: good posture 08/07/2015 None Full Exam - General 1994 Musculoskeletal gait and station Overall: normal gait 08/07/2015 None Full Exam - General 1994 Musculoskeletal gait and station Overall: normal station 08/07/2015 None Full Exam - General 1994 Neurologic gait Overall: no ataxia, no unsteadiness 08/07/2015 None Full Exam - General 1994 Psychiatric orientation/consciousness Overall: oriented to person, place and time 08/07/2015 None Full Exam - General 1994 Psychiatric mood and affect Overall: normal mood and affect 08/07/2015 None Full Exam - General 1994 Constitutional general appearance Overall: well developed 07/07/2015 None Full Exam - General 1994 Constitutional general appearance Overall: in no acute distress 07/07/2015 None Full Exam - General 1994 Constitutional general appearance Overall: well nourished 07/07/2015 None Full Exam - General 1994 Eyes pupils and irises Overall: pupils equal, round, reactive to light and accomodation 07/07/2015 None Full Exam - General 1994 Ears/Nose/Throat otoscopic exam Overall: external auditory canals clear 07/07/2015 None Full Exam - General 1994 Ears/Nose/Throat otoscopic exam Overall: tympanic membranes clear 07/07/2015 None Full Exam - General 1994 Ears/Nose/Throat oral cavity/pharynx/larynx Overall: oral mucosa clear 07/07/2015 None Full Exam - General 1994 Ears/Nose/Throat oral cavity/pharynx/larynx Overall: oropharyngeal mucosa clear 07/07/2015 None Full Exam - General 1994 Ears/Nose/Throat oral cavity/pharynx/larynx Overall: no masses 07/07/2015 None Full Exam - General 1994 Respiratory auscultation Overall: breath sounds clear bilaterally 07/07/2015 None Full Exam - General 1994 Respiratory respiratory effort/rhythm Overall: no retractions 07/07/2015 None Full Exam - General 1994 Respiratory respiratory effort/rhythm Overall: normal rate 07/07/2015 None Full Exam - General 1994 Cardiovascular auscultation of heart Overall: regular rate 07/07/2015 None Full Exam - General 1994 Cardiovascular auscultation of heart Overall: normal heart sounds 07/07/2015 None Full Exam - General 1994 Cardiovascular auscultation of heart Overall: no murmurs 07/07/2015 None Full Exam - General 1994 Abdomen abdominal exam Overall: no tenderness 07/07/2015 None Full Exam - General 1994 Abdomen abdominal exam Overall: normal bowel sounds 07/07/2015 None Full Exam - General 1994 Abdomen abdominal exam Contour: rounded 07/07/2015 None Full Exam - General 1994 Musculoskeletal digits and nails Overall: no clubbing 07/07/2015 None Full Exam - General 1994 Musculoskeletal digits and nails Overall: digits benign 07/07/2015 None Full Exam - General 1994 Musculoskeletal spine, ribs and pelvis Overall: spine benign 07/07/2015 None Full Exam - General 1994 Musculoskeletal spine, ribs and pelvis Overall: sacroiliac joint benign 07/07/2015 None Full Exam - General 1994 Musculoskeletal spine, ribs and pelvis Overall: good posture 07/07/2015 None Full Exam - General 1994 Musculoskeletal gait and station Overall: normal gait 07/07/2015 None Full Exam - General 1994 Musculoskeletal gait and station Overall: normal station 07/07/2015 None Full Exam - General 1994 Neurologic gait Overall: no ataxia, no unsteadiness 07/07/2015 None Full Exam - General 1994 Psychiatric orientation/consciousness Overall: oriented to person, place and time 07/07/2015 None Full Exam - General 1994 Psychiatric mood and affect Overall: normal mood and affect 07/07/2015 None Full Exam - General 1994 Constitutional general appearance Overall: well developed 04/02/2015 None Full Exam - General 1994 Constitutional general appearance Overall: in no acute distress 04/02/2015 None Full Exam - General 1994 Constitutional general appearance Overall: well nourished 04/02/2015 None Full Exam - General 1994 Constitutional general appearance Hygiene/Attention to Grooming: good hygiene 04/02/2015 None Full Exam - General 1994 Eyes pupils and irises Overall: pupils equal, round, reactive to light and accomodation 04/02/2015 None Full Exam - General 1994 Ears/Nose/Throat otoscopic exam Overall: external auditory canals clear 04/02/2015 None Full Exam - General 1994 Ears/Nose/Throat otoscopic exam Overall: tympanic membranes clear 04/02/2015 None Full Exam - General 1994 Ears/Nose/Throat oral cavity/pharynx/larynx Overall: oral mucosa clear 04/02/2015 None Full Exam - General 1994 Ears/Nose/Throat oral cavity/pharynx/larynx Overall: oropharyngeal mucosa clear 04/02/2015 None Full Exam - General 1994 Ears/Nose/Throat oral cavity/pharynx/larynx Overall: no masses 04/02/2015 None Full Exam - General 1994 Respiratory auscultation Overall: breath sounds clear bilaterally 04/02/2015 None Full Exam - General 1994 Respiratory respiratory effort/rhythm Overall: no retractions 04/02/2015 None Full Exam - General 1994 Respiratory respiratory effort/rhythm Overall: normal rate 04/02/2015 None Full Exam - General 1994 Cardiovascular auscultation of heart Overall: regular rate 04/02/2015 None Full Exam - General 1994 Cardiovascular auscultation of heart Overall: normal heart sounds 04/02/2015 None Full Exam - General 1994 Abdomen abdominal exam Overall: no tenderness 04/02/2015 None Full Exam - General 1994 Abdomen abdominal exam Overall: normal bowel sounds 04/02/2015 None Full Exam - General 1994 Abdomen abdominal exam Contour: rounded 04/02/2015 None Full Exam - General 1994 Neurologic gait Overall: no ataxia, no unsteadiness 04/02/2015 None Full Exam - General 1994 Psychiatric orientation/consciousness Overall: oriented to person, place and time 04/02/2015 None Full Exam - General 1994 Psychiatric mood and affect Overall: normal mood and affect 04/02/2015 None Full Exam - General 1994 Constitutional general appearance Overall: well developed 12/23/2014 None Full Exam - General 1994 Constitutional general appearance Overall: in no acute distress 12/23/2014 None Full Exam - General 1994 Constitutional general appearance Overall: well nourished 12/23/2014 None Full Exam - General 1994 Eyes pupils and irises Overall: pupils equal, round, reactive to light and accomodation 12/23/2014 None Full Exam - General 1994 Ears/Nose/Throat otoscopic exam Overall: external auditory canals clear 12/23/2014 None Full Exam - General 1994 Ears/Nose/Throat otoscopic exam Overall: tympanic membranes clear 12/23/2014 None Full Exam - General 1994 Ears/Nose/Throat oral cavity/pharynx/larynx Overall: oral mucosa clear 12/23/2014 None Full Exam - General 1994 Ears/Nose/Throat oral cavity/pharynx/larynx Overall: oropharyngeal mucosa clear 12/23/2014 None Full Exam - General 1994 Ears/Nose/Throat oral cavity/pharynx/larynx Overall: no masses 12/23/2014 None Full Exam - General 1994 Respiratory auscultation Overall: breath sounds clear bilaterally 12/23/2014 None Full Exam - General 1994 Respiratory respiratory effort/rhythm Overall: no retractions 12/23/2014 None Full Exam - General 1994 Respiratory respiratory effort/rhythm Overall: normal rate 12/23/2014 None Full Exam - General 1994 Cardiovascular auscultation of heart Overall: regular rate 12/23/2014 None Full Exam - General 1994 Cardiovascular auscultation of heart Overall: normal heart sounds 12/23/2014 None Full Exam - General 1994 Cardiovascular auscultation of heart Overall: no murmurs 12/23/2014 None Full Exam - General 1994 Abdomen abdominal exam Overall: no tenderness 12/23/2014 None Full Exam - General 1994 Abdomen abdominal exam Overall: normal bowel sounds 12/23/2014 None Full Exam - General 1994 Abdomen abdominal exam Contour: rounded 12/23/2014 None Full Exam - General 1994 Musculoskeletal digits and nails Overall: no clubbing 12/23/2014 None Full Exam - General 1994 Musculoskeletal digits and nails Overall: digits benign 12/23/2014 None Full Exam - General 1994 Musculoskeletal spine, ribs and pelvis Overall: spine benign 12/23/2014 None Full Exam - General 1994 Musculoskeletal spine, ribs and pelvis Overall: sacroiliac joint benign 12/23/2014 None Full Exam - General 1994 Musculoskeletal spine, ribs and pelvis Overall: good posture 12/23/2014 None Full Exam - General 1994 Musculoskeletal gait and station Overall: normal gait 12/23/2014 None Full Exam - General 1994 Musculoskeletal gait and station Overall: normal station 12/23/2014 None Full Exam - General 1994 Neurologic gait Overall: no ataxia, no unsteadiness 12/23/2014 None Full Exam - General 1994 Psychiatric orientation/consciousness Overall: oriented to person, place and time 12/23/2014 None Full Exam - General 1994 Psychiatric mood and affect Overall: normal mood and affect 12/23/2014 None Full Exam - General 1994 Constitutional general appearance Overall: well developed 10/22/2014 None Full Exam - General 1994 Constitutional general appearance Overall: in no acute distress 10/22/2014 None Full Exam - General 1994 Constitutional general appearance Overall: well nourished 10/22/2014 None Full Exam - General 1994 Eyes pupils and irises Overall: pupils equal, round, reactive to light and accomodation 10/22/2014 None Full Exam - General 1994 Ears/Nose/Throat otoscopic exam Overall: external auditory canals clear 10/22/2014 None Full Exam - General 1994 Ears/Nose/Throat otoscopic exam Overall: tympanic membranes clear 10/22/2014 None Full Exam - General 1994 Ears/Nose/Throat oral cavity/pharynx/larynx Overall: oral mucosa clear 10/22/2014 None Full Exam - General 1994 Ears/Nose/Throat oral cavity/pharynx/larynx Overall: oropharyngeal mucosa clear 10/22/2014 None Full Exam - General 1994 Ears/Nose/Throat oral cavity/pharynx/larynx Overall: no masses 10/22/2014 None Full Exam - General 1994 Respiratory auscultation Overall: breath sounds clear bilaterally 10/22/2014 None Full Exam - General 1994 Respiratory respiratory effort/rhythm Overall: no retractions 10/22/2014 None Full Exam - General 1994 Respiratory respiratory effort/rhythm Overall: normal rate 10/22/2014 None Full Exam - General 1994 Cardiovascular auscultation of heart Overall: regular rate 10/22/2014 None Full Exam - General 1994 Cardiovascular auscultation of heart Overall: normal heart sounds 10/22/2014 None Full Exam - General 1994 Cardiovascular auscultation of heart Overall: no murmurs 10/22/2014 None Full Exam - General 1994 Abdomen abdominal exam Overall: no tenderness 10/22/2014 None Full Exam - General 1994 Abdomen abdominal exam Overall: normal bowel sounds 10/22/2014 None Full Exam - General 1994 Abdomen abdominal exam Contour: rounded 10/22/2014 None Full Exam - General 1994 Musculoskeletal digits and nails Overall: no clubbing 10/22/2014 None Full Exam - General 1994 Musculoskeletal digits and nails Overall: digits benign 10/22/2014 None Full Exam - General 1994 Musculoskeletal spine, ribs and pelvis Overall: spine benign 10/22/2014 None Full Exam - General 1994 Musculoskeletal spine, ribs and pelvis Overall: sacroiliac joint benign 10/22/2014 None Full Exam - General 1994 Musculoskeletal spine, ribs and pelvis Overall: good posture 10/22/2014 None Full Exam - General 1994 Musculoskeletal gait and station Overall: normal gait 10/22/2014 None Full Exam - General 1994 Musculoskeletal gait and station Overall: normal station 10/22/2014 None Full Exam - General 1994 Neurologic gait Overall: no ataxia, no unsteadiness 10/22/2014 None Full Exam - General 1994 Psychiatric orientation/consciousness Overall: oriented to person, place and time 10/22/2014 None Full Exam - General 1994 Psychiatric mood and affect Overall: normal mood and affect 10/22/2014 None Full Exam - General 1994 Constitutional general appearance Overall: well developed 09/26/2014 None Full Exam - General 1994 Constitutional general appearance Overall: in no acute distress 09/26/2014 None Full Exam - General 1994 Constitutional general appearance Overall: well nourished 09/26/2014 None Full Exam - General 1994 Eyes pupils and irises Overall: pupils equal, round, reactive to light and accomodation 09/26/2014 None Full Exam - General 1994 Ears/Nose/Throat oral cavity/pharynx/larynx Overall: oral mucosa clear 09/26/2014 None Full Exam - General 1994 Ears/Nose/Throat oral cavity/pharynx/larynx Overall: no masses 09/26/2014 None Full Exam - General 1994 Respiratory respiratory effort/rhythm Overall: no retractions 09/26/2014 None Full Exam - General 1994 Respiratory respiratory effort/rhythm Overall: normal rate 09/26/2014 None Full Exam - General 1994 Cardiovascular auscultation of heart Overall: regular rate 09/26/2014 None Full Exam - General 1994 Cardiovascular auscultation of heart Overall: normal heart sounds 09/26/2014 None Full Exam - General 1994 Cardiovascular auscultation of heart Overall: no murmurs 09/26/2014 None Full Exam - General 1994 Musculoskeletal digits and nails Overall: no clubbing 09/26/2014 None Full Exam - General 1994 Musculoskeletal digits and nails Overall: digits benign 09/26/2014 None Full Exam - General 1994 Musculoskeletal spine, ribs and pelvis Overall: good posture 09/26/2014 None Full Exam - General 1994 Musculoskeletal gait and station Overall: normal gait 09/26/2014 None Full Exam - General 1994 Musculoskeletal gait and station Overall: normal station 09/26/2014 None Full Exam - General 1994 Psychiatric orientation/consciousness Overall: oriented to person, place and time 09/26/2014 None Full Exam - General 1994 Psychiatric mood and affect Overall: normal mood and affect 09/26/2014 None Full Exam - General 1994 Ears/Nose/Throat otoscopic exam Overall: tympanic membranes clear 09/26/2014 None Full Exam - General 1994 Ears/Nose/Throat otoscopic exam Overall: external auditory canals clear 09/26/2014 None Full Exam - General 1994 Respiratory auscultation Overall: breath sounds clear bilaterally 09/26/2014 None Full Exam - General 1994 Lymphatic neck nodes Overall: anterior cervical chain benign 09/26/2014 None Full Exam - General 1994 Lymphatic neck nodes Overall: posterior cervical chain benign 09/26/2014 None Full Exam - General 1994 Constitutional general appearance Overall: well developed 07/01/2014 None Full Exam - General 1994 Constitutional general appearance Overall: in no acute distress 07/01/2014 None Full Exam - General 1994 Constitutional general appearance Overall: well nourished 07/01/2014 None Full Exam - General 1994 Eyes pupils and irises Overall: pupils equal, round, reactive to light and accomodation 07/01/2014 None Full Exam - General 1994 Ears/Nose/Throat otoscopic exam Overall: external auditory canals clear 07/01/2014 None Full Exam - General 1994 Ears/Nose/Throat otoscopic exam Overall: tympanic membranes clear 07/01/2014 None Full Exam - General 1994 Ears/Nose/Throat oral cavity/pharynx/larynx Overall: oral mucosa clear 07/01/2014 None Full Exam - General 1994 Ears/Nose/Throat oral cavity/pharynx/larynx Overall: oropharyngeal mucosa clear 07/01/2014 None Full Exam - General 1994 Ears/Nose/Throat oral cavity/pharynx/larynx Overall: no masses 07/01/2014 None Full Exam - General 1994 Respiratory auscultation Overall: breath sounds clear bilaterally 07/01/2014 None Full Exam - General 1994 Respiratory respiratory effort/rhythm Overall: no retractions 07/01/2014 None Full Exam - General 1994 Respiratory respiratory effort/rhythm Overall: normal rate 07/01/2014 None Full Exam - General 1994 Cardiovascular auscultation of heart Overall: regular rate 07/01/2014 None Full Exam - General 1994 Cardiovascular auscultation of heart Overall: normal heart sounds 07/01/2014 None Full Exam - General 1994 Cardiovascular auscultation of heart Overall: no murmurs 07/01/2014 None Full Exam - General 1994 Abdomen abdominal exam Overall: no tenderness 07/01/2014 None Full Exam - General 1994 Abdomen abdominal exam Overall: normal bowel sounds 07/01/2014 None Full Exam - General 1994 Abdomen abdominal exam Contour: rounded 07/01/2014 None Full Exam - General 1994 Musculoskeletal digits and nails Overall: no clubbing 07/01/2014 None Full Exam - General 1994 Musculoskeletal digits and nails Overall: digits benign 07/01/2014 None Full Exam - General 1994 Musculoskeletal spine, ribs and pelvis Overall: spine benign 07/01/2014 None Full Exam - General 1994 Musculoskeletal spine, ribs and pelvis Overall: sacroiliac joint benign 07/01/2014 None Full Exam - General 1994 Musculoskeletal spine, ribs and pelvis Overall: good posture 07/01/2014 None Full Exam - General 1994 Musculoskeletal gait and station Overall: normal gait 07/01/2014 None Full Exam - General 1994 Musculoskeletal gait and station Overall: normal station 07/01/2014 None Full Exam - General 1994 Neurologic gait Overall: no ataxia, no unsteadiness 07/01/2014 None Full Exam - General 1994 Psychiatric orientation/consciousness Overall: oriented to person, place and time 07/01/2014 None Full Exam - General 1994 Psychiatric mood and affect Overall: normal mood and affect 07/01/2014 None Full Exam - General 1994 Constitutional general appearance Overall: well developed 06/09/2014 None Full Exam - General 1994 Constitutional general appearance Overall: in no acute distress 06/09/2014 None Full Exam - General 1994 Constitutional general appearance Overall: well nourished 06/09/2014 None Full Exam - General 1994 Eyes pupils and irises Overall: pupils equal, round, reactive to light and accomodation 06/09/2014 None Full Exam - General 1994 Ears/Nose/Throat otoscopic exam Overall: external auditory canals clear 06/09/2014 None Full Exam - General 1994 Ears/Nose/Throat otoscopic exam Overall: tympanic membranes clear 06/09/2014 None Full Exam - General 1994 Ears/Nose/Throat oral cavity/pharynx/larynx Overall: oral mucosa clear 06/09/2014 None Full Exam - General 1994 Ears/Nose/Throat oral cavity/pharynx/larynx Overall: oropharyngeal mucosa clear 06/09/2014 None Full Exam - General 1994 Ears/Nose/Throat oral cavity/pharynx/larynx Overall: no masses 06/09/2014 None Full Exam - General 1994 Respiratory auscultation Overall: breath sounds clear bilaterally 06/09/2014 None Full Exam - General 1994 Respiratory respiratory effort/rhythm Overall: no retractions 06/09/2014 None Full Exam - General 1994 Respiratory respiratory effort/rhythm Overall: normal rate 06/09/2014 None Full Exam - General 1994 Cardiovascular auscultation of heart Overall: regular rate 06/09/2014 None Full Exam - General 1994 Cardiovascular auscultation of heart Overall: normal heart sounds 06/09/2014 None Full Exam - General 1994 Cardiovascular auscultation of heart Overall: no murmurs 06/09/2014 None Full Exam - General 1994 Abdomen abdominal exam Overall: no tenderness 06/09/2014 None Full Exam - General 1994 Abdomen abdominal exam Overall: normal bowel sounds 06/09/2014 None Full Exam - General 1994 Abdomen abdominal exam Contour: rounded 06/09/2014 None Full Exam - General 1994 Musculoskeletal digits and nails Overall: no clubbing 06/09/2014 None Full Exam - General 1994 Musculoskeletal digits and nails Overall: digits benign 06/09/2014 None Full Exam - General 1994 Musculoskeletal spine, ribs and pelvis Overall: spine benign 06/09/2014 None Full Exam - General 1994 Musculoskeletal spine, ribs and pelvis Overall: sacroiliac joint benign 06/09/2014 None Full Exam - General 1994 Musculoskeletal spine, ribs and pelvis Overall: good posture 06/09/2014 None Full Exam - General 1994 Musculoskeletal gait and station Overall: normal gait 06/09/2014 None Full Exam - General 1994 Musculoskeletal gait and station Overall: normal station 06/09/2014 None Full Exam - General 1994 Neurologic gait Overall: no ataxia, no unsteadiness 06/09/2014 None Full Exam - General 1994 Psychiatric orientation/consciousness Overall: oriented to person, place and time 06/09/2014 None Full Exam - General 1994 Psychiatric mood and affect Overall: normal mood and affect 06/09/2014 None Full Exam - General 1994 Constitutional general appearance Overall: well developed 05/07/2014 None Full Exam - General 1994 Constitutional general appearance Overall: in no acute distress 05/07/2014 None Full Exam - General 1994 Constitutional general appearance Overall: well nourished 05/07/2014 None Full Exam - General 1994 Eyes pupils and irises Overall: pupils equal, round, reactive to light and accomodation 05/07/2014 None Full Exam - General 1994 Ears/Nose/Throat otoscopic exam Overall: external auditory canals clear 05/07/2014 None Full Exam - General 1994 Ears/Nose/Throat otoscopic exam Overall: tympanic membranes clear 05/07/2014 None Full Exam - General 1994 Ears/Nose/Throat oral cavity/pharynx/larynx Overall: oral mucosa clear 05/07/2014 None Full Exam - General 1994 Ears/Nose/Throat oral cavity/pharynx/larynx Overall: oropharyngeal mucosa clear 05/07/2014 None Full Exam - General 1994 Ears/Nose/Throat oral cavity/pharynx/larynx Overall: no masses 05/07/2014 None Full Exam - General 1994 Respiratory auscultation Overall: breath sounds clear bilaterally 05/07/2014 None Full Exam - General 1994 Respiratory respiratory effort/rhythm Overall: no retractions 05/07/2014 None Full Exam - General 1994 Respiratory respiratory effort/rhythm Overall: normal rate 05/07/2014 None Full Exam - General 1994 Cardiovascular auscultation of heart Overall: regular rate 05/07/2014 None Full Exam - General 1994 Cardiovascular auscultation of heart Overall: normal heart sounds 05/07/2014 None Full Exam - General 1994 Cardiovascular auscultation of heart Overall: no murmurs 05/07/2014 None Full Exam - General 1994 Abdomen abdominal exam Overall: no tenderness 05/07/2014 None Full Exam - General 1994 Abdomen abdominal exam Overall: normal bowel sounds 05/07/2014 None Full Exam - General 1994 Abdomen abdominal exam Contour: rounded 05/07/2014 None Full Exam - General 1994 Musculoskeletal digits and nails Overall: no clubbing 05/07/2014 None Full Exam - General 1994 Musculoskeletal digits and nails Overall: digits benign 05/07/2014 None Full Exam - General 1994 Musculoskeletal spine, ribs and pelvis Overall: spine benign 05/07/2014 None Full Exam - General 1994 Musculoskeletal spine, ribs and pelvis Overall: sacroiliac joint benign 05/07/2014 None Full Exam - General 1994 Musculoskeletal spine, ribs and pelvis Overall: good posture 05/07/2014 None Full Exam - General 1994 Musculoskeletal gait and station Overall: normal gait 05/07/2014 None Full Exam - General 1994 Musculoskeletal gait and station Overall: normal station 05/07/2014 None Full Exam - General 1994 Neurologic gait Overall: no ataxia, no unsteadiness 05/07/2014 None Full Exam - General 1994 Psychiatric orientation/consciousness Overall: oriented to person, place and time 05/07/2014 None Full Exam - General 1994 Psychiatric mood and affect Overall: normal mood and affect 05/07/2014 None Full Exam - General 1994 Constitutional general appearance Overall: well developed 04/21/2014 None Full Exam - General 1994 Constitutional general appearance Overall: well nourished 04/21/2014 None Full Exam - General 1994 Eyes pupils and irises Overall: pupils equal, round, reactive to light and accomodation 04/21/2014 None Full Exam - General 1994 Ears/Nose/Throat otoscopic exam Overall: external auditory canals clear 04/21/2014 None Full Exam - General 1994 Ears/Nose/Throat otoscopic exam Overall: tympanic membranes clear 04/21/2014 None Full Exam - General 1994 Ears/Nose/Throat oral cavity/pharynx/larynx Overall: oropharyngeal mucosa clear 04/21/2014 None Full Exam - General 1994 Ears/Nose/Throat oral cavity/pharynx/larynx Overall: no masses 04/21/2014 None Full Exam - General 1994 Respiratory auscultation Overall: breath sounds clear bilaterally 04/21/2014 None Full Exam - General 1994 Respiratory respiratory effort/rhythm Overall: no retractions 04/21/2014 None Full Exam - General 1994 Respiratory respiratory effort/rhythm Overall: normal rate 04/21/2014 None Full Exam - General 1994 Cardiovascular auscultation of heart Overall: regular rate 04/21/2014 None Full Exam - General 1994 Cardiovascular auscultation of heart Overall: normal heart sounds 04/21/2014 None Full Exam - General 1994 Cardiovascular auscultation of heart Overall: no murmurs 04/21/2014 None Full Exam - General 1994 Abdomen abdominal exam Overall: no tenderness 04/21/2014 None Full Exam - General 1994 Abdomen abdominal exam Overall: normal bowel sounds 04/21/2014 None Full Exam - General 1994 Abdomen abdominal exam Contour: rounded 04/21/2014 None Full Exam - General 1994 Musculoskeletal digits and nails Overall: no clubbing 04/21/2014 None Full Exam - General 1994 Musculoskeletal digits and nails Overall: digits benign 04/21/2014 None Full Exam - General 1994 Musculoskeletal spine, ribs and pelvis Overall: spine benign 04/21/2014 None Full Exam - General 1994 Musculoskeletal spine, ribs and pelvis Overall: sacroiliac joint benign 04/21/2014 None Full Exam - General 1994 Musculoskeletal spine, ribs and pelvis Overall: good posture 04/21/2014 None Full Exam - General 1994 Musculoskeletal gait and station Overall: normal gait 04/21/2014 None Full Exam - General 1994 Musculoskeletal gait and station Overall: normal station 04/21/2014 None Full Exam - General 1994 Neurologic gait Overall: no ataxia, no unsteadiness 04/21/2014 None Full Exam - General 1994 Psychiatric orientation/consciousness Overall: oriented to person, place and time 04/21/2014 None Full Exam - General 1994 Psychiatric mood and affect Overall: normal mood and affect 04/21/2014 None Full Exam - General 1994 Constitutional general appearance Hygiene/Attention to Grooming: good hygiene 04/21/2014 None Full Exam - General 1994 Constitutional general appearance Evidence of Distress: mild distress 04/21/2014 - pt unsteady with walking - Full Exam - General 1994 Ears/Nose/Throat oral cavity/pharynx/larynx Overall: oral mucosa clear 04/21/2014 but dry Full Exam - General 1994 Cardiovascular extremities Edema present: pitting 04/21/2014 None Full Exam - General 1994 Cardiovascular extremities Edema present: severity 1+ - 4+: 2+ 04/21/2014 None Full Exam - General 1994 Cardiovascular extremities Edema present: bilateral 04/21/2014 None Full Exam - General 1994 Integument inspection of skin Overall: few scattered moles, no gross abnormalities 04/21/2014 None Full Exam - General 1994 Constitutional general appearance Overall: well developed 02/14/2014 None Full Exam - General 1994 Constitutional general appearance Overall: in no acute distress 02/14/2014 None Full Exam - General 1994 Constitutional general appearance Overall: well nourished 02/14/2014 None Full Exam - General 1994 Eyes pupils and irises Overall: pupils equal, round, reactive to light and accomodation 02/14/2014 None Full Exam - General 1994 Ears/Nose/Throat otoscopic exam Overall: external auditory canals clear 02/14/2014 None Full Exam - General 1994 Ears/Nose/Throat otoscopic exam Overall: tympanic membranes clear 02/14/2014 None Full Exam - General 1994 Ears/Nose/Throat oral cavity/pharynx/larynx Overall: oral mucosa clear 02/14/2014 None Full Exam - General 1994 Ears/Nose/Throat oral cavity/pharynx/larynx Overall: oropharyngeal mucosa clear 02/14/2014 None Full Exam - General 1994 Ears/Nose/Throat oral cavity/pharynx/larynx Overall: no masses 02/14/2014 None Full Exam - General 1994 Respiratory auscultation Overall: breath sounds clear bilaterally 02/14/2014 None Full Exam - General 1994 Respiratory respiratory effort/rhythm Overall: no retractions 02/14/2014 None Full Exam - General 1994 Respiratory respiratory effort/rhythm Overall: normal rate 02/14/2014 None Full Exam - General 1994 Cardiovascular auscultation of heart Overall: regular rate 02/14/2014 None Full Exam - General 1994 Cardiovascular auscultation of heart Overall: normal heart sounds 02/14/2014 None Full Exam - General 1994 Cardiovascular auscultation of heart Overall: no murmurs 02/14/2014 None Full Exam - General 1994 Neurologic gait Overall: no ataxia, no unsteadiness 02/14/2014 None Full Exam - General 1994 Psychiatric orientation/consciousness Overall: oriented to person, place and time 02/14/2014 None Full Exam - General 1994 Psychiatric mood and affect Overall: normal mood and affect 02/14/2014 None Full Exam - General 1994 Integument inspection of skin Dermatitis: erythema 02/14/2014 anterior left lower leg/t ibia, healing bite jeff. Full Exam - Cardiology Respiratory auscultation Overall: breath sounds clear bilaterally 01/16/2014 None Full Exam - Cardiology Cardiovascular auscultation of heart Overall: regular rate 01/16/2014 None Full Exam - Cardiology Constitutional general appearance Overall: well nourished 01/16/2014 None Full Exam - Cardiology Constitutional general appearance Overall: well developed 01/16/2014 None Full Exam - Cardiology Constitutional general appearance Overall: in no acute distress 01/16/2014 None Full Exam - Cardiology Psychiatric orientation/consciousness Overall: oriented to person, place and time 01/16/2014 None Full Exam - Cardiology Psychiatric mood and affect Overall: normal mood and affect 01/16/2014 None Full Exam - Cardiology Musculoskeletal gait and station Overall: normal gait 01/16/2014 None Full Exam - Cardiology Musculoskeletal gait and station Overall: normal station 01/16/2014 - upper extremity with t enderness to palpation over the anterior head of biceps bilaterally Full Exam - General 1994 Constitutional general appearance Overall: well developed 11/14/2013 None Full Exam - General 1994 Constitutional general appearance Overall: in no acute distress 11/14/2013 None Full Exam - General 1994 Constitutional general appearance Overall: well nourished 11/14/2013 None Full Exam - General 1994 Eyes pupils and irises Overall: pupils equal, round, reactive to light and accomodation 11/14/2013 None Full Exam - General 1994 Ears/Nose/Throat otoscopic exam Overall: external auditory canals clear 11/14/2013 None Full Exam - General 1994 Ears/Nose/Throat otoscopic exam Overall: tympanic membranes clear 11/14/2013 None Full Exam - General 1994 Ears/Nose/Throat oral cavity/pharynx/larynx Overall: oral mucosa clear 11/14/2013 None Full Exam - General 1994 Ears/Nose/Throat oral cavity/pharynx/larynx Overall: oropharyngeal mucosa clear 11/14/2013 None Full Exam - General 1994 Ears/Nose/Throat oral cavity/pharynx/larynx Overall: no masses 11/14/2013 None Full Exam - General 1994 Respiratory auscultation Overall: breath sounds clear bilaterally 11/14/2013 None Full Exam - General 1994 Respiratory respiratory effort/rhythm Overall: no retractions 11/14/2013 None Full Exam - General 1994 Respiratory respiratory effort/rhythm Overall: normal rate 11/14/2013 None Full Exam - General 1994 Cardiovascular auscultation of heart Overall: regular rate 11/14/2013 None Full Exam - General 1994 Cardiovascular auscultation of heart Overall: normal heart sounds 11/14/2013 None Full Exam - General 1994 Cardiovascular auscultation of heart Overall: no murmurs 11/14/2013 None Full Exam - General 1994 Abdomen abdominal exam Overall: no tenderness 11/14/2013 None Full Exam - General 1994 Abdomen abdominal exam Overall: normal bowel sounds 11/14/2013 None Full Exam - General 1994 Abdomen abdominal exam Contour: rounded 11/14/2013 None Full Exam - General 1994 Musculoskeletal digits and nails Overall: no clubbing 11/14/2013 None Full Exam - General 1994 Musculoskeletal digits and nails Overall: digits benign 11/14/2013 None Full Exam - General 1994 Musculoskeletal spine, ribs and pelvis Overall: spine benign 11/14/2013 None Full Exam - General 1994 Musculoskeletal spine, ribs and pelvis Overall: sacroiliac joint benign 11/14/2013 None Full Exam - General 1994 Musculoskeletal spine, ribs and pelvis Overall: good posture 11/14/2013 None Full Exam - General 1994 Musculoskeletal gait and station Overall: normal gait 11/14/2013 None Full Exam - General 1994 Musculoskeletal gait and station Overall: normal station 11/14/2013 None Full Exam - General 1994 Neurologic gait Overall: no ataxia, no unsteadiness 11/14/2013 None Full Exam - General 1994 Psychiatric orientation/consciousness Overall: oriented to person, place and time 11/14/2013 None Full Exam - General 1994 Psychiatric mood and affect Overall: normal mood and affect 11/14/2013 None Full Exam - General 1994 Constitutional general appearance Overall: well developed 10/24/2013 None Full Exam - General 1994 Constitutional general appearance Overall: in no acute distress 10/24/2013 None Full Exam - General 1994 Constitutional general appearance Overall: well nourished 10/24/2013 None Full Exam - General 1994 Eyes pupils and irises Overall: pupils equal, round, reactive to light and accomodation 10/24/2013 None Full Exam - General 1994 Ears/Nose/Throat otoscopic exam Overall: external auditory canals clear 10/24/2013 None Full Exam - General 1994 Ears/Nose/Throat otoscopic exam Overall: tympanic membranes clear 10/24/2013 None Full Exam - General 1994 Ears/Nose/Throat oral cavity/pharynx/larynx Overall: oral mucosa clear 10/24/2013 None Full Exam - General 1994 Ears/Nose/Throat oral cavity/pharynx/larynx Overall: oropharyngeal mucosa clear 10/24/2013 None Full Exam - General 1994 Ears/Nose/Throat oral cavity/pharynx/larynx Overall: no masses 10/24/2013 None Full Exam - General 1994 Respiratory auscultation Overall: breath sounds clear bilaterally 10/24/2013 None Full Exam - General 1994 Respiratory respiratory effort/rhythm Overall: no retractions 10/24/2013 None Full Exam - General 1994 Respiratory respiratory effort/rhythm Overall: normal rate 10/24/2013 None Full Exam - General 1994 Cardiovascular auscultation of heart Overall: regular rate 10/24/2013 None Full Exam - General 1994 Cardiovascular auscultation of heart Overall: normal heart sounds 10/24/2013 None Full Exam - General 1994 Cardiovascular auscultation of heart Overall: no murmurs 10/24/2013 None Full Exam - General 1994 Abdomen abdominal exam Overall: no tenderness 10/24/2013 None Full Exam - General 1994 Abdomen abdominal exam Overall: normal bowel sounds 10/24/2013 None Full Exam - General 1994 Abdomen abdominal exam Contour: rounded 10/24/2013 None Full Exam - General 1994 Musculoskeletal digits and nails Overall: no clubbing 10/24/2013 None Full Exam - General 1994 Musculoskeletal digits and nails Overall: digits benign 10/24/2013 None Full Exam - General 1994 Musculoskeletal spine, ribs and pelvis Overall: spine benign 10/24/2013 None Full Exam - General 1994 Musculoskeletal spine, ribs and pelvis Overall: sacroiliac joint benign 10/24/2013 None Full Exam - General 1994 Musculoskeletal spine, ribs and pelvis Overall: good posture 10/24/2013 None Full Exam - General 1994 Musculoskeletal gait and station Overall: normal gait 10/24/2013 None Full Exam - General 1994 Musculoskeletal gait and station Overall: normal station 10/24/2013 None Full Exam - General 1994 Neurologic gait Overall: no ataxia, no unsteadiness 10/24/2013 None Full Exam - General 1994 Psychiatric orientation/consciousness Overall: oriented to person, place and time 10/24/2013 None Full Exam - General 1994 Psychiatric mood and affect Overall: normal mood and affect 10/24/2013 None Full Exam - General 1994 Constitutional general appearance Overall: well developed 06/24/2013 None Full Exam - General 1994 Cardiovascular auscultation of heart Overall: no murmurs 06/24/2013 None Full Exam - General 1994 Abdomen abdominal exam Overall: no tenderness 06/24/2013 None Full Exam - General 1994 Abdomen abdominal exam Overall: normal bowel sounds 06/24/2013 None Full Exam - General 1994 Abdomen abdominal exam Contour: rounded 06/24/2013 None Full Exam - General 1994 Musculoskeletal digits and nails Overall: no clubbing 06/24/2013 None Full Exam - General 1994 Musculoskeletal digits and nails Overall: digits benign 06/24/2013 None Full Exam - General 1994 Musculoskeletal spine, ribs and pelvis Overall: spine benign 06/24/2013 None Full Exam - General 1994 Musculoskeletal spine, ribs and pelvis Overall: sacroiliac joint benign 06/24/2013 None Full Exam - General 1994 Musculoskeletal spine, ribs and pelvis Overall: good posture 06/24/2013 None Full Exam - General 1994 Musculoskeletal gait and station Overall: normal gait 06/24/2013 None Full Exam - General 1994 Musculoskeletal gait and station Overall: normal station 06/24/2013 None Full Exam - General 1994 Neurologic gait Overall: no ataxia, no unsteadiness 06/24/2013 None Full Exam - General 1994 Psychiatric orientation/consciousness Overall: oriented to person, place and time 06/24/2013 None Full Exam - General 1994 Psychiatric mood and affect Overall: normal mood and affect 06/24/2013 None Full Exam - General 1994 Constitutional general appearance Overall: in no acute distress 06/24/2013 None Full Exam - General 1994 Constitutional general appearance Overall: well nourished 06/24/2013 None Full Exam - General 1994 Eyes pupils and irises Overall: pupils equal, round, reactive to light and accomodation 06/24/2013 None Full Exam - General 1994 Ears/Nose/Throat otoscopic exam Overall: external auditory canals clear 06/24/2013 None Full Exam - General 1994 Ears/Nose/Throat otoscopic exam Overall: tympanic membranes clear 06/24/2013 None Full Exam - General 1994 Ears/Nose/Throat oral cavity/pharynx/larynx Overall: oral mucosa clear 06/24/2013 None Full Exam - General 1994 Ears/Nose/Throat oral cavity/pharynx/larynx Overall: oropharyngeal mucosa clear 06/24/2013 None Full Exam - General 1995 Ears/Nose/Throat oral cavity/pharynx/larynx Overall: no masses 06/24/2013 None Full Exam - General 1994 Respiratory auscultation Overall: breath sounds clear bilaterally 06/24/2013 None Full Exam - General 1994 Respiratory respiratory effort/rhythm Overall: no retractions 06/24/2013 None Full Exam - General 1994 Respiratory respiratory effort/rhythm Overall: normal rate 06/24/2013 None Full Exam - General 1994 Cardiovascular auscultation of heart Overall: regular rate 06/24/2013 None Full Exam - General 1994 Cardiovascular auscultation of heart Overall: normal heart sounds 06/24/2013 None Full Exam - General 1994 Constitutional general appearance Overall: well developed 06/05/2013 None Full Exam - General 1994 Constitutional general appearance Overall: in no acute distress 06/05/2013 None Full Exam - General 1994 Constitutional general appearance Overall: well nourished 06/05/2013 None Full Exam - General 1994 Eyes pupils and irises Overall: pupils equal, round, reactive to light and accomodation 06/05/2013 None Full Exam - General 1994 Ears/Nose/Throat otoscopic exam Overall: external auditory canals clear 06/05/2013 None Full Exam - General 1994 Ears/Nose/Throat otoscopic exam Overall: tympanic membranes clear 06/05/2013 None Full Exam - General 1994 Ears/Nose/Throat oral cavity/pharynx/larynx Overall: oral mucosa clear 06/05/2013 None Full Exam - General 1994 Ears/Nose/Throat oral cavity/pharynx/larynx Overall: oropharyngeal mucosa clear 06/05/2013 None Full Exam - General 1995 Ears/Nose/Throat oral cavity/pharynx/larynx Overall: no masses 06/05/2013 None Full Exam - General 1994 Respiratory auscultation Overall: breath sounds clear bilaterally 06/05/2013 None Full Exam - General 1994 Respiratory respiratory effort/rhythm Overall: no retractions 06/05/2013 None Full Exam - General 1994 Respiratory respiratory effort/rhythm Overall: normal rate 06/05/2013 None Full Exam - General 1994 Cardiovascular auscultation of heart Overall: regular rate 06/05/2013 None Full Exam - General 1994 Cardiovascular auscultation of heart Overall: normal heart sounds 06/05/2013 None Full Exam - General 1995 Cardiovascular auscultation of heart Overall: no murmurs 06/05/2013 None Full Exam - General 1995 Abdomen abdominal exam Overall: no tenderness 06/05/2013 None Full Exam - General 1995 Abdomen abdominal exam Overall: normal bowel sounds 06/05/2013 None Full Exam - General 1994 Abdomen abdominal exam Contour: rounded 06/05/2013 None Full Exam - General 1995 Musculoskeletal digits and nails Overall: no clubbing 06/05/2013 None Full Exam - General 1995 Musculoskeletal digits and nails Overall: digits benign 06/05/2013 None Full Exam - General 1994 Musculoskeletal spine, ribs and pelvis Overall: spine benign 06/05/2013 None Full Exam - General 1994 Musculoskeletal spine, ribs and pelvis Overall: sacroiliac joint benign 06/05/2013 None Full Exam - General 1994 Musculoskeletal spine, ribs and pelvis Overall: good posture 06/05/2013 None Full Exam - General 1994 Musculoskeletal gait and station Overall: normal gait 06/05/2013 None Full Exam - General 1994 Musculoskeletal gait and station Overall: normal station 06/05/2013 None Full Exam - General 1994 Neurologic gait Overall: no ataxia, no unsteadiness 06/05/2013 None Full Exam - General 1994 Psychiatric orientation/consciousness Overall: oriented to person, place and time 06/05/2013 None Full Exam - General 1994 Psychiatric mood and affect Overall: normal mood and affect 06/05/2013 None Full Exam - General 1994 Ears/Nose/Throat oral cavity/pharynx/larynx Overall: oropharyngeal mucosa clear 04/01/2013 None Full Exam - General 1994 Ears/Nose/Throat oral cavity/pharynx/larynx Overall: no masses 04/01/2013 None Full Exam - General 1994 Respiratory auscultation Overall: breath sounds clear bilaterally 04/01/2013 None Full Exam - General 1994 Respiratory respiratory effort/rhythm Overall: no retractions 04/01/2013 None Full Exam - General 1994 Respiratory respiratory effort/rhythm Overall: normal rate 04/01/2013 None Full Exam - General 1994 Cardiovascular auscultation of heart Overall: regular rate 04/01/2013 None Full Exam - General 1994 Cardiovascular auscultation of heart Overall: normal heart sounds 04/01/2013 None Full Exam - General 1994 Cardiovascular auscultation of heart Overall: no murmurs 04/01/2013 None Full Exam - General 1995 Abdomen abdominal exam Overall: no tenderness 04/01/2013 None Full Exam - General 1995 Abdomen abdominal exam Overall: normal bowel sounds 04/01/2013 None Full Exam - General 1995 Abdomen abdominal exam Contour: rounded 04/01/2013 None Full Exam - General 1995 Musculoskeletal digits and nails Overall: no clubbing 04/01/2013 None Full Exam - General 1995 Musculoskeletal digits and nails Overall: digits benign 04/01/2013 None Full Exam - General 1995 Musculoskeletal spine, ribs and pelvis Overall: spine benign 04/01/2013 None Full Exam - General 1995 Constitutional general appearance Overall: well developed 04/01/2013 None Full Exam - General 1995 Constitutional general appearance Overall: in no acute distress 04/01/2013 None Full Exam - General 1995 Constitutional general appearance Overall: well nourished 04/01/2013 None Full Exam - General 1994 Eyes pupils and irises Overall: pupils equal, round, reactive to light and accomodation 04/01/2013 None Full Exam - General 1995 Ears/Nose/Throat otoscopic exam Overall: external auditory canals clear 04/01/2013 None Full Exam - General 1995 Ears/Nose/Throat otoscopic exam Overall: tympanic membranes clear 04/01/2013 None Full Exam - General 1995 Ears/Nose/Throat oral cavity/pharynx/larynx Overall: oral mucosa clear 04/01/2013 None Full Exam - General 1995 Musculoskeletal spine, ribs and pelvis Overall: sacroiliac joint benign 04/01/2013 None Full Exam - General 1995 Musculoskeletal spine, ribs and pelvis Overall: good posture 04/01/2013 None Full Exam - General 1994 Musculoskeletal gait and station Overall: normal gait 04/01/2013 None Full Exam - General 1994 Musculoskeletal gait and station Overall: normal station 04/01/2013 None Full Exam - General 1994 Neurologic gait Overall: no ataxia, no unsteadiness 04/01/2013 None Full Exam - General 1994 Psychiatric orientation/consciousness Overall: oriented to person, place and time 04/01/2013 None Full Exam - General 1994 Psychiatric mood and affect Overall: normal mood and affect 04/01/2013 None Full Exam - General 1994 Constitutional general appearance Overall: well developed 01/29/2013 None Full Exam - General 1994 Constitutional general appearance Overall: in no acute distress 01/29/2013 None Full Exam - General 1994 Constitutional general appearance Overall: well nourished 01/29/2013 None Full Exam - General 1994 Eyes pupils and irises Overall: pupils equal, round, reactive to light and accomodation 01/29/2013 None Full Exam - General 1995 Ears/Nose/Throat otoscopic exam Overall: external auditory canals clear 01/29/2013 None Full Exam - General 1995 Ears/Nose/Throat otoscopic exam Overall: tympanic membranes clear 01/29/2013 None Full Exam - General 1995 Ears/Nose/Throat oral cavity/pharynx/larynx Overall: oral mucosa clear 01/29/2013 None Full Exam - General 1995 Ears/Nose/Throat oral cavity/pharynx/larynx Overall: oropharyngeal mucosa clear 01/29/2013 None Full Exam - General 1995 Ears/Nose/Throat oral cavity/pharynx/larynx Overall: no masses 01/29/2013 None Full Exam - General 1994 Respiratory auscultation Overall: breath sounds clear bilaterally 01/29/2013 None Full Exam - General 1994 Respiratory respiratory effort/rhythm Overall: no retractions 01/29/2013 None Full Exam - General 1994 Respiratory respiratory effort/rhythm Overall: normal rate 01/29/2013 None Full Exam - General 1994 Cardiovascular auscultation of heart Overall: regular rate 01/29/2013 None Full Exam - General 1994 Cardiovascular auscultation of heart Overall: normal heart sounds 01/29/2013 None Full Exam - General 1994 Cardiovascular auscultation of heart Overall: no murmurs 01/29/2013 None Full Exam - General 1994 Abdomen abdominal exam Overall: no tenderness 01/29/2013 None Full Exam - General 1994 Abdomen abdominal exam Overall: normal bowel sounds 01/29/2013 None Full Exam - General 1994 Abdomen abdominal exam Contour: rounded 01/29/2013 None Full Exam - General 1994 Musculoskeletal digits and nails Overall: no clubbing 01/29/2013 None Full Exam - General 1994 Musculoskeletal digits and nails Overall: digits benign 01/29/2013 None Full Exam - General 1994 Musculoskeletal spine, ribs and pelvis Overall: spine benign 01/29/2013 None Full Exam - General 1994 Musculoskeletal spine, ribs and pelvis Overall: sacroiliac joint benign 01/29/2013 None Full Exam - General 1994 Musculoskeletal spine, ribs and pelvis Overall: good posture 01/29/2013 None Full Exam - General 1994 Musculoskeletal gait and station Overall: normal gait 01/29/2013 None Full Exam - General 1994 Musculoskeletal gait and station Overall: normal station 01/29/2013 None Full Exam - General 1995 Neurologic gait Overall: no ataxia, no unsteadiness 01/29/2013 None Full Exam - General 1995 Psychiatric orientation/consciousness Overall: oriented to person, place and time 01/29/2013 None Full Exam - General 1995 Psychiatric mood and affect Overall: normal mood and affect 01/29/2013 None Full Exam - General 1995 Constitutional general appearance Overall: well developed 12/25/2012 None Full Exam - General 1995 Constitutional general appearance Overall: in no acute distress 12/25/2012 None Full Exam - General 1995 Constitutional general appearance Overall: well nourished 12/25/2012 None Full Exam - General 1995 Eyes pupils and irises Overall: pupils equal, round, reactive to light and accomodation 12/25/2012 None Full Exam - General 1995 Ears/Nose/Throat otoscopic exam Overall: external auditory canals clear 12/25/2012 None Full Exam - General 1995 Ears/Nose/Throat otoscopic exam Overall: tympanic membranes clear 12/25/2012 None Full Exam - General 1995 Ears/Nose/Throat oral cavity/pharynx/larynx Overall: oral mucosa clear 12/25/2012 None Full Exam - General 1995 Ears/Nose/Throat oral cavity/pharynx/larynx Overall: oropharyngeal mucosa clear 12/25/2012 None Full Exam - General 1995 Ears/Nose/Throat oral cavity/pharynx/larynx Overall: no masses 12/25/2012 None Full Exam - General 1994 Respiratory auscultation Overall: breath sounds clear bilaterally 12/25/2012 None Full Exam - General 1994 Respiratory respiratory effort/rhythm Overall: no retractions 12/25/2012 None Full Exam - General 1994 Respiratory respiratory effort/rhythm Overall: normal rate 12/25/2012 None Full Exam - General 1994 Cardiovascular auscultation of heart Overall: regular rate 12/25/2012 None Full Exam - General 1994 Cardiovascular auscultation of heart Overall: normal heart sounds 12/25/2012 None Full Exam - General 1994 Cardiovascular auscultation of heart Overall: no murmurs 12/25/2012 None Full Exam - General 1994 Abdomen abdominal exam Overall: no tenderness 12/25/2012 None Full Exam - General 1994 Abdomen abdominal exam Overall: normal bowel sounds 12/25/2012 None Full Exam - General 1994 Abdomen abdominal exam Contour: rounded 12/25/2012 None Full Exam - General 1994 Musculoskeletal digits and nails Overall: no clubbing 12/25/2012 None Full Exam - General 1995 Musculoskeletal digits and nails Overall: digits benign 12/25/2012 None Full Exam - General 1995 Musculoskeletal spine, ribs and pelvis Overall: spine benign 12/25/2012 None Full Exam - General 1995 Musculoskeletal spine, ribs and pelvis Overall: sacroiliac joint benign 12/25/2012 None Full Exam - General 1995 Musculoskeletal spine, ribs and pelvis Overall: good posture 12/25/2012 None Full Exam - General 1994 Musculoskeletal gait and station Overall: normal gait 12/25/2012 None Full Exam - General 1995 Musculoskeletal gait and station Overall: normal station 12/25/2012 None Full Exam - General 1994 Neurologic gait Overall: no ataxia, no unsteadiness 12/25/2012 None Full Exam - General 1994 Psychiatric orientation/consciousness Overall: oriented to person, place and time 12/25/2012 None Full Exam - General 1994 Psychiatric mood and affect Overall: normal mood and affect 12/25/2012 None Full Exam - General 1994 Constitutional general appearance Overall: well developed 10/01/2012 None Full Exam - General 1994 Constitutional general appearance Overall: in no acute distress 10/01/2012 None Full Exam - General 1994 Constitutional general appearance Overall: well nourished 10/01/2012 None Full Exam - General 1994 Eyes pupils and irises Overall: pupils equal, round, reactive to light and accomodation 10/01/2012 None Full Exam - General 1994 Ears/Nose/Throat otoscopic exam Overall: external auditory canals clear 10/01/2012 None Full Exam - General 1994 Ears/Nose/Throat otoscopic exam Overall: tympanic membranes clear 10/01/2012 None Full Exam - General 1994 Ears/Nose/Throat oral cavity/pharynx/larynx Overall: oral mucosa clear 10/01/2012 None Full Exam - General 1994 Ears/Nose/Throat oral cavity/pharynx/larynx Overall: oropharyngeal mucosa clear 10/01/2012 None Full Exam - General 1994 Ears/Nose/Throat oral cavity/pharynx/larynx Overall: no masses 10/01/2012 None Full Exam - General 1994 Respiratory auscultation Overall: breath sounds clear bilaterally 10/01/2012 None Full Exam - General 1994 Respiratory respiratory effort/rhythm Overall: no retractions 10/01/2012 None Full Exam - General 1994 Respiratory respiratory effort/rhythm Overall: normal rate 10/01/2012 None Full Exam - General 1995 Cardiovascular auscultation of heart Overall: regular rate 10/01/2012 None Full Exam - General 1995 Cardiovascular auscultation of heart Overall: normal heart sounds 10/01/2012 None Full Exam - General 1995 Cardiovascular auscultation of heart Overall: no murmurs 10/01/2012 None Full Exam - General 1995 Abdomen abdominal exam Overall: no tenderness 10/01/2012 None Full Exam - General 1995 Abdomen abdominal exam Overall: normal bowel sounds 10/01/2012 None Full Exam - General 1995 Abdomen abdominal exam Contour: rounded 10/01/2012 None Full Exam - General 1995 Musculoskeletal digits and nails Overall: no clubbing 10/01/2012 None Full Exam - General 1995 Musculoskeletal digits and nails Overall: digits benign 10/01/2012 None Full Exam - General 1995 Musculoskeletal spine, ribs and pelvis Overall: spine benign 10/01/2012 None Full Exam - General 1995 Musculoskeletal spine, ribs and pelvis Overall: sacroiliac joint benign 10/01/2012 None Full Exam - General 1994 Musculoskeletal spine, ribs and pelvis Overall: good posture 10/01/2012 None Full Exam - General 1995 Musculoskeletal gait and station Overall: normal gait 10/01/2012 None Full Exam - General 1995 Musculoskeletal gait and station Overall: normal station 10/01/2012 None Full Exam - General 1994 Neurologic gait Overall: no ataxia, no unsteadiness 10/01/2012 None Full Exam - General 1994 Psychiatric orientation/consciousness Overall: oriented to person, place and time 10/01/2012 None Full Exam - General 1994 Psychiatric mood and affect Overall: normal mood and affect 10/01/2012 None Full Exam - General 1994 Respiratory auscultation Lower lung field: diminished 06/29/2012 None Full Exam - General 1994 Respiratory respiratory effort/rhythm Overall: no retractions 06/29/2012 None Full Exam - General 1994 Respiratory respiratory effort/rhythm Overall: normal rate 06/29/2012 None Full Exam - General 1994 Cardiovascular auscultation of heart Overall: regular rate 06/29/2012 None Full Exam - General 1994 Cardiovascular auscultation of heart Overall: normal heart sounds 06/29/2012 None Full Exam - General 1994 Cardiovascular auscultation of heart Overall: no murmurs 06/29/2012 None Full Exam - General 1994 Musculoskeletal digits and nails Overall: no clubbing 06/29/2012 None Full Exam - General 1994 Musculoskeletal digits and nails Overall: digits benign 06/29/2012 None Full Exam - General 1995 Musculoskeletal spine, ribs and pelvis Overall: good posture 06/29/2012 None Full Exam - General 1994 Musculoskeletal gait and station Overall: normal gait 06/29/2012 None Full Exam - General 1995 Musculoskeletal gait and station Overall: normal station 06/29/2012 None Full Exam - General 1995 Psychiatric orientation/consciousness Overall: oriented to person, place and time 06/29/2012 None Full Exam - General 1994 Psychiatric mood and affect Overall: normal mood and affect 06/29/2012 None Full Exam - General 1994 Respiratory auscultation Upper lung field: a normal exam 06/29/2012 None Full Exam - General 1995 Constitutional general appearance Overall: well developed 06/29/2012 None Full Exam - General 1994 Constitutional general appearance Overall: in no acute distress 06/29/2012 None Full Exam - General 1995 Constitutional general appearance Overall: well nourished 06/29/2012 None Full Exam - General 1994 Eyes pupils and irises Overall: pupils equal, round, reactive to light and accomodation 06/29/2012 None Full Exam - General 1995 Ears/Nose/Throat otoscopic exam Overall: external auditory canals clear 06/29/2012 None Full Exam - General 1995 Ears/Nose/Throat otoscopic exam Tympanic membrane: erythematous 06/29/2012 None Full Exam - General 1995 Ears/Nose/Throat otoscopic exam Tympanic membrane: bulging 06/29/2012 None Full Exam - General 1995 Ears/Nose/Throat oral cavity/pharynx/larynx Overall: oral mucosa clear 06/29/2012 None Full Exam - General 1995 Ears/Nose/Throat oral cavity/pharynx/larynx Overall: no masses 06/29/2012 None Full Exam - General 1995 Ears/Nose/Throat oral cavity/pharynx/larynx Posterior Pharynx: purulent post nasal drainage 06/29/2012 None Full Exam - General 1994 Constitutional general appearance Overall: well developed 05/28/2012 None Full Exam - General 1994 Constitutional general appearance Overall: in no acute distress 05/28/2012 None Full Exam - General 1995 Constitutional general appearance Overall: well nourished 05/28/2012 None Full Exam - General 1994 Eyes pupils and irises Overall: pupils equal, round, reactive to light and accomodation 05/28/2012 None Full Exam - General 1994 Ears/Nose/Throat otoscopic exam Overall: external auditory canals clear 05/28/2012 None Full Exam - General 1995 Ears/Nose/Throat oral cavity/pharynx/larynx Overall: oral mucosa clear 05/28/2012 None Full Exam - General 1995 Ears/Nose/Throat oral cavity/pharynx/larynx Overall: no masses 05/28/2012 None Full Exam - General 1994 Respiratory respiratory effort/rhythm Overall: no retractions 05/28/2012 None Full Exam - General 1994 Respiratory respiratory effort/rhythm Overall: normal rate 05/28/2012 None Full Exam - General 1994 Cardiovascular auscultation of heart Overall: regular rate 05/28/2012 None Full Exam - General 1994 Cardiovascular auscultation of heart Overall: normal heart sounds 05/28/2012 None Full Exam - General 1994 Cardiovascular auscultation of heart Overall: no murmurs 05/28/2012 None Full Exam - General 1994 Musculoskeletal digits and nails Overall: no clubbing 05/28/2012 None Full Exam - General 1994 Musculoskeletal digits and nails Overall: digits benign 05/28/2012 None Full Exam - General 1994 Musculoskeletal spine, ribs and pelvis Overall: good posture 05/28/2012 None Full Exam - General 1994 Musculoskeletal gait and station Overall: normal gait 05/28/2012 None Full Exam - General 1994 Musculoskeletal gait and station Overall: normal station 05/28/2012 None Full Exam - General 1994 Psychiatric orientation/consciousness Overall: oriented to person, place and time 05/28/2012 None Full Exam - General 1994 Psychiatric mood and affect Overall: normal mood and affect 05/28/2012 None Full Exam - General 1994 Ears/Nose/Throat otoscopic exam Tympanic membrane: erythematous 05/28/2012 None Full Exam - General 1994 Ears/Nose/Throat otoscopic exam Tympanic membrane: bulging 05/28/2012 None Full Exam - General 1994 Ears/Nose/Throat oral cavity/pharynx/larynx Posterior Pharynx: purulent post nasal drainage 05/28/2012 None Full Exam - General 1994 Respiratory auscultation Upper lung field: bronchial 05/28/2012 None Full Exam - General 1994 Respiratory auscultation Upper lung field: rhonchi 05/28/2012 None Full Exam - General 1994 Respiratory auscultation Lower lung field: diminished 05/28/2012 None Full Exam - General 1994 Constitutional general appearance Overall: well nourished 04/02/2012 None Full Exam - General 1994 Constitutional general appearance Overall: well developed 04/02/2012 None Full Exam - General 1994 Constitutional general appearance Overall: in no acute distress 04/02/2012 None Full Exam - General 1994 Eyes pupils and irises Overall: pupils equal, round, reactive to light and accomodation 04/02/2012 None Full Exam - General 1994 Respiratory auscultation Overall: breath sounds clear bilaterally 04/02/2012 None Full Exam - General 1994 Respiratory respiratory effort/rhythm Overall: no retractions 04/02/2012 None Full Exam - General 1994 Respiratory respiratory effort/rhythm Overall: normal rate 04/02/2012 None Full Exam - General 1994 Cardiovascular auscultation of heart Overall: regular rate 04/02/2012 None Full Exam - General 1994 Cardiovascular auscultation of heart Overall: normal heart sounds 04/02/2012 None Full Exam - General 1994 Cardiovascular auscultation of heart Overall: no murmurs 04/02/2012 None Full Exam - General 1994 Abdomen abdominal exam Overall: no tenderness 04/02/2012 None Full Exam - General 1994 Abdomen abdominal exam Overall: normal bowel sounds 04/02/2012 None Full Exam - General 1994 Abdomen abdominal exam Contour: rounded 04/02/2012 None Full Exam - General 1994 Neurologic gait Overall: no ataxia, no unsteadiness 04/02/2012 None Full Exam - General 1994 Psychiatric orientation/consciousness Overall: oriented to person, place and time 04/02/2012 None Full Exam - General 1994 Psychiatric mood and affect Overall: normal mood and affect 04/02/2012 None Full Exam - General 1994 Ears/Nose/Throat otoscopic exam Overall: tympanic membranes clear 04/02/2012 None Full Exam - General 1994 Ears/Nose/Throat otoscopic exam Overall: external auditory canals clear 04/02/2012 None Full Exam - General 1994 Ears/Nose/Throat oral cavity/pharynx/larynx Overall: oropharyngeal mucosa clear 04/02/2012 None Full Exam - General 1994 Ears/Nose/Throat oral cavity/pharynx/larynx Overall: no masses 04/02/2012 None Full Exam - General 1994 Ears/Nose/Throat oral cavity/pharynx/larynx Overall: oral mucosa clear 04/02/2012 None Full Exam - General 1994 Musculoskeletal digits and nails Overall: digits benign 04/02/2012 None Full Exam - General 1994 Musculoskeletal digits and nails Overall: no clubbing 04/02/2012 None Full Exam - General 1994 Musculoskeletal gait and station Overall: normal station 04/02/2012 None Full Exam - General 1994 Musculoskeletal gait and station Overall: normal gait 04/02/2012 None Full Exam - General 1994 Musculoskeletal spine, ribs and pelvis Overall: good posture 04/02/2012 None Full Exam - General 1994 Musculoskeletal spine, ribs and pelvis Overall: sacroiliac joint benign 04/02/2012 None Full Exam - General 1994 Musculoskeletal spine, ribs and pelvis Overall: spine benign 04/02/2012 None Full Exam - ENT Neurologic orientation Overall: oriented to person, place a nd time 01/24/2012 None Full Exam - ENT Lymphatic palpation of lymph nodes Overall: anterior cervical chain benign 01/24/2012 None Full Exam - ENT Lymphatic palpation of lymph nodes Overall: posterior cervical chain benign 01/24/2012 None Full Exam - ENT Cardiovascular auscultation of heart Overall: regular rate 01/24/2012 None Full Exam - ENT Cardiovascular auscultation of heart Overall: normal heart sounds 01/24/2012 None Full Exam - ENT Respiratory auscultation Overall: breath sounds clear bilater ally 01/24/2012 None Full Exam - ENT Face and Head palpation Overall: no sinus tenderness 01/24/2012 None Full Exam - ENT Ears/Nose/Throat otoscopic exam Overall: external auditory canals normal 01/24/2012 None Full Exam - ENT Ears/Nose/Throat otoscopic exam Left tympanic membrane: air-fluid le ingrid 01/24/2012 None Full Exam - ENT Ears/Nose/Throat otoscopic exam Right tympanic membrane: air-fluid level 01/24/2012 None Full Exam - ENT Ears/Nose/Throat oropharynx Overall: oral mucosa clear 01/24/2012 None Full Exam - ENT Constitutional general appearance Overall: well nourished 01/24/2012 None Full Exam - ENT Constitutional general appearance Overall: well developed 01/24/2012 None Full Exam - ENT Constitutional general appearance Overall: in no acute distress 01/24/2012 None Full Exam - ENT Ears/Nose/Throat nasal mucosa, septum, turbinates Drainage: purulent 01/24/2012 None Full Exam - ENT Ears/Nose/Throat nasal mucosa, septum, turbinates Left nasal cavity: erythema 01/24/2012 None Full Exam - ENT Ears/Nose/Throat nasal mucosa, septum, turbinates Right nasal cavity: erythema 01/24/2012 None Full Exam - Cardiology Constitutional general appearance Overall: well nourished 10/03/2011 None Full Exam - Cardiology Constitutional general appearance Overall: well developed 10/03/2011 None Full Exam - Cardiology Constitutional general appearance Overall: in no acute distress 10/03/2011 None Full Exam - Cardiology Eyes conjunctiva/eyelids Overall: conjunctiva clear 10/03/2011 None Full Exam - Cardiology Chest/Breast breast/chest inspection Overall: normal chest shape 10/03/2011 None Full Exam - Cardiology Respiratory respiratory effort/rhythm Overall: no retractions 10/03/2011 None Full Exam - Cardiology Respiratory respiratory effort/rhythm Overall: normal rate 10/03/2011 None Full Exam - Cardiology Respiratory auscultation Overall: breath sounds clear bilaterally 10/03/2011 None Full Exam - Cardiology Cardiovascular auscultation of heart Overall: regular rate 10/03/2011 None Full Exam - Cardiology Cardiovascular auscultation of heart Overall: normal heart sounds 10/03/2011 None Full Exam - Cardiology Cardiovascular extremities Overall: without clubbing, cyanosis, or edema 10/03/2011 None Full Exam - Cardiology Abdomen abdominal exam Overall: no tenderness 10/03/2011 None Full Exam - Cardiology Abdomen abdominal exam Overall: normal bowel sounds 10/03/2011 None Full Exam - Cardiology Extremities digits and nails Overall: no clubbing 10/03/2011 None Full Exam - Cardiology Extremities digits and nails Overall: digits benign 10/03/2011 None Full Exam - Cardiology Psychiatric orientation/consciousness Overall: oriented to person, place and time 10/03/2011 None Full Exam - General 1994 Psychiatric mood and affect Overall: normal mood and affect 05/30/2011 None Full Exam - General 1994 Psychiatric orientation/consciousness Overall: oriented to person, place and time 05/30/2011 None Full Exam - General 1994 Neurologic gait Overall: no ataxia, no unsteadiness 05/30/2011 None Full Exam - General 1994 Abdomen abdominal exam Overall: no tenderness 05/30/2011 None Full Exam - General 1994 Abdomen abdominal exam Overall: normal bowel sounds 05/30/2011 None Full Exam - General 1994 Abdomen abdominal exam Contour: rounded 05/30/2011 None Full Exam - General 1994 Cardiovascular auscultation of heart Overall: regular rate 05/30/2011 None Full Exam - General 1994 Cardiovascular auscultation of heart Overall: normal heart sounds 05/30/2011 None Full Exam - General 1994 Cardiovascular auscultation of heart Overall: no murmurs 05/30/2011 None Full Exam - General 1994 Respiratory auscultation Overall: breath sounds clear bilaterally 05/30/2011 None Full Exam - General 1994 Respiratory respiratory effort/rhythm Overall: normal rate 05/30/2011 None Full Exam - General 1994 Respiratory respiratory effort/rhythm Overall: no retractions 05/30/2011 None Full Exam - General 1994 Constitutional general appearance Overall: well nourished 05/30/2011 None Full Exam - General 1994 Constitutional general appearance Overall: well developed 05/30/2011 None Full Exam - General 1994 Constitutional general appearance Overall: in no acute distress 05/30/2011 None Full Exam - General 1994 Eyes pupils and irises Overall: pupils equal, round, reactive to light and accomodation 05/30/2011 None Instructions Comment I sent a prescriptio n for doxycycline 100mg twice daily to [facility]-start it this evening Call if you are not better or if any worse. . URI - Pt advised to increase fluids, vitamin C. Discussed natural and expected course of this diagnosis and need to alert me if symtpoms do not follow expected course, or if any worse. RX sent to patient's pharmacy. Allergies - Advised avoidance of allergens if possible, we discussed natural and expected course of this diagnosis and need to alert me if symtpoms do not follow expected course, or if any worse. Recommend claritin or zyrtec daily. take a probiotic tati ly while taking the doxycycline . Hypertension - well controlled - louise nue with current medications, continue with no added salt diet. Pt has been encouraged to exercise daily. The pt has been advised to call the office if there are any acute concerns about change in blood pressure readings at home. Atrial Fibrillation - pt on chronic anticoagulation and is currently rate controlled. The pt is to have labs done as appropriate to monitor medication levels and is to report if they start to feel as if their heart rate is becoming uncontrolled. Tick Borne Illness - continue with doxycycline plans - twice daily x 2 weeks, then daily x 1 month then prn symptoms of tick born illness. . Hypertension - wel l controlled - continue with current medications, continue with no added salt diet. Pt has been encouraged to exercise daily. The pt has been advised to call the office if there are any acute concerns about change in blood pressure readings at home. Diabetes Mellitus - controlled - per recent FSBS reports. I have recommended for the patient to have follow up labs prior to the next office visit. The patient has been instructed to continue with current medications as previously directed, continue with regular FSBS monitoring to assure continued control of diabetes. Pt to call for any acute concerns, complaints, or if the blood glucose readings are starting to become less controlled. . Diabetes Mellitus - controlled - per recent FSBS reports. I have recommended for the patient to have follow up labs prior to the next office visit. The patient has been instructed to continue with current medications as previously directed, continue with regular FSBS monitoring to assure continued control of diabetes. Pt to call for any acute concerns, complaints, or if the blood glucose readings are starting to become less controlled. Biceps tendonitis - pt to do exercises as directed, antiinflammatories directed to be taken per RX instructions and pt to call if symptoms are not improved. Pt to increase the p epcid to twice daily Pt to keep appt with Dr. Bello on 06/25/13 @10:10AM. Esophageal Reflux - the patient has been counseled against excessive intake of caffiene, spicy foods, peppermint, and cinnamon - all of which can exacerbate esophageal reflux. The patient is to take medications as prescribed and call the office if the symptoms are not improving. Pt to increase the pepcid to twice daily Pt to keep appt with Dr. Bello on 06/25/13 @10:10AM . Edema - pt has bee n advised to elevate legs to prevent dependent edema. Diuretic use has been discussed and pt has been instructed in appropriate use of such medication as necessary to further attempt to reduce peripheral edema. On the days he takes diruetic (LASIX) drink an extra glass of orange juice. Hypertension - fairly well controlled - continue with current medications, continue with no added salt diet. Pt has been encouraged to exercise daily. The pt has been advised to call the office if there are any acute concerns about change in blood pressure readings at home. . Diabetes Mellitus - controlled - per recent FSBS reports. I have recommended for the patient to have follow up labs prior to the next office visit. The patient has been instructed to continue with current medications as previously directed, continue with regular FSBS monitoring to assure continued control of diabetes. Pt to call for any acute concerns, complaints, or if the blood glucose readings are starting to become less controlled. I have recommended for the patient to follow more strictly to the diabetic diet as discussed in clinic to allow for greater blood glucose control. Increase activity level - increase aerobic exercise Hyperlipidemia - pt has been counseled about appropriate diet, exercise, and need for low fat food choices. I have discussed the need for the patient to take medications as prescribed. If the patient has negative side effects from the medication, they are to CALL the office and not abruptly discontinue the medication without discussion with a practicioner in the office. We will check labs in 3-6 months for follow up on the patient's chronic medical problem and to assure normal liver response to medications. Pt does not want to start on statin - I will allow for him to try more aggressive exercise - if he does not have improved HDL, then need to consider starting on a statin at least three times a week. He states that he has been counseled by me and Dr. Culver in the past that he needed to be on a statin, but is hesitant to do so as he had myalgias with previous statin use. Hypertension - well controlled - continue with current medications, continue with no added salt diet. Pt has been encouraged to exercise daily. The pt has been advised to call the office if there are any acute concerns about change in blood pressure readings at home. . ADMIT FROM CLINIC TO HOSPITAL - PT IS ACUTELY ILL, REQUIRES HOSPITALIZATION. THE PATIENT HAS BEEN EVALUATED IN CLINIC AND THIS STANDS THE HOSPITAL HISTORY AND PHYSICAL EXAMINATION. THE PATIENT HAS BEEN SENT TO THE HOSPITAL WITH WRITTEN ORDERS FOR TREATMENT AND EVALUATION OF THE ACUTE ILLNESS. Pt to be started on rocephin, iv fluids, and will check labs - chem panel, cbc, tsh. . Hypertension - wel l controlled - continue with current medications, continue with no added salt diet. Pt has been encouraged to exercise daily. The pt has been advised to call the office if there are any acute concerns about change in blood pressure readings at home. Diabetes Mellitus - controlled - per recent FSBS reports. I have recommended for the patient to have follow up labs prior to the next office visit. The patient has been instructed to continue with current medications as previously directed, continue with regular FSBS monitoring to assure continued control of diabetes. Pt to call for any acute concerns, complaints, or if the blood glucose readings are starting to become less controlled. Esophageal Reflux - the patient has been counseled against excessive intake of caffiene, spicy foods, peppermint, and cinnamon - all of which can exacerbate esophageal reflux. The patient is to take medications as prescribed and call the office if the symptoms are not improving. Pt given rx for carafate, pt to call if not improved. . Hypertension - unc ontrolled - the patient's medications have been modified as documented in the visit note. The patient has been counseled to cut back on salt in diet for a no added salt diet, low fat diet, start an exercise program with low weight bearing exercises and higher aerobic activity for heart health. The patient is to check blood pressure readings as an outpatient and either fax, call, or email the readings to the office next week for practitioner to review. The pt is to call for acute concerns. Pt changed to clonidine patch - stop clonidine pills. Fatigue, Snoring disorder, excessive daytime sleepiness - recommended that Don have a sleep study - he did not pass a sleep study done over 7 years ago - but never got a machine for the sleep apnea - it was around the time he had a bypass and "it got lost in the aftermath of his bypass". I have recommended and had staff make a referral for sleep study at the hospital. Diabetes Mellitus - controlled - per recent FSBS reports. I have recommended for the patient to have follow up labs prior to the next office visit. The patient has been instructed to continue with current medications as previously directed, continue with regular FSBS monitoring to assure continued control of diabetes. Pt to call for any acute concerns, complaints, or if the blood glucose readings are starting to become less controlled. . Hypertension - wel l controlled - continue with current medications, continue with no added salt diet. Pt has been encouraged to exercise daily. The pt has been advised to call the office if there are any acute concerns about change in blood pressure readings at home. Back pain - improving - continue with current treatment - continue with physical therapy. PT TO INCREASE LOSAR WAGNER TO 100MG DAILY.. Diabetes Mellitus - controlled - per recent FSBS reports. I have recommended for the patient to have follow up labs prior to the next office visit. The patient has been instructed to continue with current medications as previously directed, continue with regular FSBS monitoring to assure continued control of diabetes. Pt to call for any acute concerns, complaints, or if the blood glucose readings are starting to become less controlled. Hypertension - uncontrolled - the patient's medications have been modified as documented in the visit note. The patient has been counseled to cut back on salt in diet for a no added salt diet, low fat diet, start an exercise program with low weight bearing exercises and higher aerobic activity for heart health. The patient is to check blood pressure readings as an outpatient and either fax, call, or email the readings to the office next week for practicioner to review. The pt is to call for acute concerns. PT TO INCREASE LOSARTAN TO 100MG DAILY. PT TO INCREASE EXERCISE - AEROBIC EXERCISE- TO HELP IMPROVE HDL AND DECREASE ABDOMINAL WEIGHT. . Bronchitis - acute case of bronchitis identified. Pt has been given antibiotics, breathing treatments as appropriate, and pt has been instructed to call if symptoms are not improved, or if symptoms acutely worsen. URI - Pt advised to increase fluids, vitamin C. Discussed natural and expected course of this diagnosis and need to alert me if symtpoms do not follow expected course, or if any worse. RX sent to patient's pharmacy. . Hypertension - wel l controlled - continue with current medications, continue with no added salt diet. Pt has been encouraged to exercise daily. The pt has been advised to call the office if there are any acute concerns about change in blood pressure readings at home. . Hypertension - wel l controlled - continue with current medications, continue with no added salt diet. Pt has been encouraged to exercise daily. The pt has been advised to call the office if there are any acute concerns about change in blood pressure readings at home. Edema - bilateral lower legs - rx for lasix. . Right posterior fl ank/rib pain - need to ask Dr. Eros Worley if there is a specific test he would like to see done prior to an appt - question if nerve block would help his pain Hypertension - well controlled - continue with current medications, continue with no added salt diet. Pt has been encouraged to exercise daily. The pt has been advised to call the office if there are any acute concerns about change in blood pressure readings at home. . Hypertension - wel l controlled - continue with current medications, continue with no added salt diet. Pt has been encouraged to exercise daily. The pt has been advised to call the office if there are any acute concerns about change in blood pressure readings at home. Diabetes Mellitus - controlled - per recent FSBS reports. I have recommended for the patient to have follow up labs prior to the next office visit. The patient has been instructed to continue with current medications as previously directed, continue with regular FSBS monitoring to assure continued control of diabetes. Pt to call for any acute concerns, complaints, or if the blood glucose readings are starting to become less controlled. Abdominal/Flank pain - recommended pt to start stretching exercises for his flank/back pain - pt is not interested in physical therapy at this time. Co-Enzyme Q 10 - or Co Q 10 - take daily - to help relieve shoulder pain. Increase antioxidants in diet (blue villegas, pomegranate). . In Grown toenail - sees Dr Mauricio next week, until then soak toe in Epson salt water at night and after put cotton under toenail to help relieve pressure. Reflux - Take protonix in the evening for 1 week see if symptoms resolve, if not increase to twice a day for 1 week, call office to let know if symptoms are improved or not. Co-Enzyme Q 10 - or Co Q 10 - take daily - to help relieve shoulder pain. Increase antioxidants in diet (blue villegas, pomegranate). . Diabetes Mellitus - controlled - per recent FSBS reports. I have recommended for the patient to have follow up labs prior to the next office visit. The patient has been instructed to continue with current medications as previously directed, continue with regular FSBS monitoring to assure continued control of diabetes. Pt to call for any acute concerns, complaints, or if the blood glucose readings are starting to become less controlled. Noflu shots available, recommend pt to go to [facility] or [facility] for the shot. Kidney stone - keep appt with Dr. Hewitt for planned procedure for removal of kidney stone. . Chestwall pain - r ecommended use of topical antiinflammatory/topical aspercreme. HTN - not well controlled today - but pt has reports of good blood pressure control. DM- controlled per patient report. . Hypertension - wel l controlled - continue with current medications, continue with no added salt diet. Pt has been encouraged to exercise daily. The pt has been advised to call the office if there are any acute concerns about change in blood pressure readings at home. Atrial Fibrillation - pt on chronic anticoagulation and is currently rate controlled. The pt is to have labs done as appropriate to monitor medication levels and is to report if they start to feel as if their heart rate is becoming uncontrolled. DM - FSBS fairly well controlled - continue current treatments - monitor symptoms. . Tic Bite - improvi ng - rx for blue goo . Hypertension - unc ontrolled - the patient's medications have been modified as documented in the visit note. The patient has been counseled to cut back on salt in diet for a no added salt diet, low fat diet, start an exercise program with low weight bearing exercises and higher aerobic activity for heart health. The patient is to check blood pressure readings as an outpatient and either fax, call, or email the readings to the office next week for practitioner to review. The pt is to call for acute concerns. Anemia - change iron to two days a week. Urge Incontinence - monitor symptoms - hold myrbetric x 1 week - report back to us about symptoms off f the myrbectric and he will follow up on his blood pressure that may be elevated due to his myrbetric . URI - Pt advised t o increase fluids, vitamin C. Discussed natural and expected course of this diagnosis and need to alert me if symptoms do not follow expected course, or if any worse. RX sent to patient's pharmacy. change diltiazem fro m 180mg - new dose is 120mg - start this tomorrow. tonight - if heart rate is at or below 60, decrease the metoprolol to 50mg. new parameters if heart rate is at or below 55, decrease dose of metoprolol from 100mg down to 50mg. call if heart rate is above 100, or below 50. . Hypertension - well controlled - louise nue with current medications, continue with no added salt diet. Pt has been encouraged to exercise daily. The pt has been advised to call the office if there are any acute concerns about change in blood pressure readings at home. Atrial Fibrillation - pt on chronic anticoagulation and is currently rate controlled. The pt is to have labs done as appropriate to monitor medication levels and is to report if they start to feel as if their heart rate is becoming uncontrolled. change diltiazem from 180mg - new dose is 120mg - start this tomorrow. tonight - if heart rate is at or below 60, decrease the metoprolol to 50mg. new parameters if heart rate is at or below 55, decrease dose of metoprolol from 100mg down to 50mg. call if heart rate is above 100, or below 50. Fatigue - improved since stopping amiodarone go back to just one losartan daily hold the fenofibrate (generic tricor) . Hypertension - well controlled - louise nue with current medications, continue with no added salt diet. Pt has been encouraged to exercise daily. The pt has been advised to call the office if there are any acute concerns about change in blood pressure readings at home. Diabetes Mellitus - controlled - per recent FSBS reports. I have recommended for the patient to have follow up labs prior to the next office visit. The patient has been instructed to continue with current medications as previously directed, continue with regular FSBS monitoring to assure continued control of diabetes. Pt to call for any acute concerns, complaints, or if the blood glucose readings are starting to become less controlled. tiger balm - muscle rub . Hypertension - well controlled - louise nue with current medications, continue with no added salt diet. Pt has been encouraged to exercise daily. The pt has been advised to call the office if there are any acute concerns about change in blood pressure readings at home. Atrial Fibrillation - pt on chronic anticoagulation and is currently rate controlled. The pt is to have labs done as appropriate to monitor medication levels and is to report if they start to feel as if their heart rate is becoming uncontrolled. Back pain - recommended muscle rub . Hypertension - wel l controlled - continue with current medications, continue with no added salt diet. Pt has been encouraged to exercise daily. The pt has been advised to call the office if there are any acute concerns about change in blood pressure readings at home. Diabetes Mellitus - controlled - per recent FSBS reports. I have recommended for the patient to have follow up labs prior to the next office visit. The patient has been instructed to continue with current medications as previously directed, continue with regular FSBS monitoring to assure continued control of diabetes. Pt to call for any acute concerns, complaints, or if the blood glucose readings are starting to become less controlled. [facility] x[facility] at the [facility]. Bronchitis-cough - acute case of bronchitis identified. Pt has been given antibiotics, breathing treatments as appropriate, and pt has been instructed to call if symptoms are not improved, or if symptoms acutely worsen. sample of albuterol inhaler provided, demonstrated and instructed on use. Plan for chest xray today at the hospital. pt to keep on losartan bystolic and start on clonidine 0.1mg twice daily. . Hypertension - uncontrolled - the elvis ent's medications have been modified as documented in the visit note. The patient has been counseled to cut back on salt in diet for a no added salt diet, low fat diet, start an exercise program with low weight bearing exercises and higher aerobic activity for heart health. The patient is to check blood pressure readings as an outpatient and either fax, call, or email the readings to the office next week for practitioner to review. The pt is to call for acute concerns. pt to keep on losartan bystolic and start on clonidine 0.1mg twice daily. Diabetes Mellitus - controlled - per recent FSBS reports. I have recommended for the patient to have follow up labs prior to the next office visit. The patient has been instructed to continue with current medications as previously directed, continue with regular FSBS monitoring to assure continued control of diabetes. Pt to call for any acute concerns, complaints, or if the blood glucose readings are starting to become less controlled. . Bradycardia - pt t o maintain current medication - I have recommended his to check his blood pressure and heart rate at 1 hour, 1.5 hour and 2 hour post intake of toprol. IF his heart rate is at or below 45, we need to consider decreasing his toprol to 25mg bid. Hypertension - well controlled - continue with current medications, continue with no added salt diet. Pt has been encouraged to exercise daily. The pt has been advised to call the office if there are any acute concerns about change in blood pressure readings at home. flu shot given in clinic today . Continued fatigue, malaise post hospitalization - pt to expect some fatigue - however, will check chem panel, cbc since he had neutropenia in hospital and elevated creatinine and liver enzymes. Hypertension - not optimally controlled but pt to continue with current medications, continue with no added salt diet. Pt has been encouraged to exercise daily. The pt has been advised to call the office if there are any acute concerns about change in blood pressure readings at home. Diabetes Mellitus - controlled - per recent FSBS reports. I have recommended for the patient to have follow up labs prior to the next office visit. The patient has been instructed to continue with current medications as previously directed, continue with regular FSBS monitoring to assure continued control of diabetes. Pt to call for any acute concerns, complaints, or if the blood glucose readings are starting to become less controlled. . Hypertension - wel l controlled - continue with current medications, continue with no added salt diet. Pt has been encouraged to exercise daily. The pt has been advised to call the office if there are any acute concerns about change in blood pressure readings at home. Atrial Fibrillation - pt on chronic anticoagulation and is currently rate controlled. The pt is to have labs done as appropriate to monitor medication levels and is to report if they start to feel as if their heart rate is becoming uncontrolled. . Hypertension - wel l controlled - continue with current medications, continue with no added salt diet. Pt has been encouraged to exercise daily. The pt has been advised to call the office if there are any acute concerns about change in blood pressure readings at home. Hyperlipidemia - pt has been counseled about appropriate diet, exercise, and need for low fat food choices. I have discussed the need for the patient to take medications as prescribed. If the patient has negative side effects from the medication, they are to CALL the office and not abruptly discontinue the medication without discussion with a practitioner in the office. We will check labs in 3-6 months for follow up on the patient's chronic medical problem and to assure normal liver response to medications. Samples of crestor given to patient today . Hypertension - unc ontrolled - the patient's medications have been modified as documented in the visit note. The patient has been counseled to cut back on salt in diet for a no added salt diet, low fat diet, start an exercise program with low weight bearing exercises and higher aerobic activity for heart health. . Fatigue, Snoring disorder, excessive daytime sleepiness - recommended that Don have a sleep study - he did not pass a sleep study done over 7 years ago - but never got a machine for the sleep apnea - it was around the time he had a bypass and "it got lost in the aftermath of his bypass". I have recommended and had staff make a referral for sleep study at the hospital. Diabetes Mellitus - controlled - per recent FSBS reports. I have recommended for the patient to have follow up labs prior to the next office visit. The patient has been instructed to continue with current medications as previously directed, continue with regular FSBS monitoring to assure continued control of diabetes. Pt to call for any acute concerns, complaints, or if the blood glucose readings are starting to become less controlled. . Obesity - chronic issue with this patient. The pt has been counseled about diet changes, calorie restriction, and need to exercise. Pt will RTC in one month for weight check. Diabetes Mellitus - controlled - per recent FSBS reports. I have recommended for the patient to have follow up labs prior to the next office visit. The patient has been instructed to continue with current medications as previously directed, continue with regular FSBS monitoring to assure continued control of diabetes. Pt to call for any acute concerns, complaints, or if the blood glucose readings are starting to become less controlled. I have recommended for the patient to follow more strictly to the diabetic diet as discussed in clinic to allow for greater blood glucose control. Increase activity level - increase aerobic exercise Hyperlipidemia - pt has been counseled about appropriate diet, exercise, and need for low fat food choices. I have discussed the need for the patient to take medications as prescribed. If the patient has negative side effects from the medication, they are to CALL the office and not abruptly discontinue the medication without discussion with a practicioner in the office. We will check labs in 3-6 months for follow up on the patient's chronic medical problem and to assure normal liver response to medications. Pt does not want to start on statin - I will allow for him to try more aggressive exercise - if he does not have improved HDL, then need to consider starting on a statin at least three times a week. He states that he has been counseled by me and Dr. Culver in the past that he needed to be on a statin, but is hesitant to do so as he had myalgias with previous statin use. Hypertension - well controlled - continue with current medications, continue with no added salt diet. Pt has been encouraged to exercise daily. The pt has been advised to call the office if there are any acute concerns about change in blood pressure readings at home. . Hypertension - wel l controlled - continue with current medications, continue with no added salt diet. Pt has been encouraged to exercise daily. The pt has been advised to call the office if there are any acute concerns about change in blood pressure readings at home. Hyperlipidemia - pt has been counseled about appropriate diet, exercise, and need for low fat food choices. I have discussed the need for the patient to take medications as prescribed. If the patient has negative side effects from the medication, they are to CALL the office and not abruptly discontinue the medication without discussion with a practitioner in the office. We will check labs in 3-6 months for follow up on the patient's chronic medical problem and to assure normal liver response to medications. Edema - pt has been advised to elevate legs to prevent dependent edema, compression has been recommended to help to naturally decrease peripheral edema. Diuretic use has been discussed and pt has been instructed in appropriate use of such medication as necessary to further attempt to reduce peripheral edema. Diabetes Mellitus - controlled - per recent FSBS reports. I have recommended for the patient to have follow up labs prior to the next office visit. The patient has been instructed to continue with current medications as previously directed, continue with regular FSBS monitoring to assure continued control of diabetes. Pt to call for any acute concerns, complaints, or if the blood glucose readings are starting to become less controlled. Comment . Diabetes Mellitus - controlled - per recent FSBS reports. I have recommended for the patient to have follow up labs prior to the next office visit. The patient has been instructed to continue with current medications as previously directed, continue with regular FSBS monitoring to assure continued control of diabetes. Pt to call for any acute concerns, complaints, or if the blood glucose readings are starting to become less controlled. Left hip pain - I have recommended a referral to Dr. Salgado for injection bursa at iliac crest. Hypertension - well controlled - continue with current medications, continue with no added salt diet. Pt has been encouraged to exercise daily. The pt has been advised to call the office if there are any acute concerns about change in blood pressure readings at home. Thrush - rx for nystatin swish and swallow. DEXILANT 60MG DAILY SULCRAFATE BEFORE MEALS AND AT BEDTIME CALL IF YOUR SYMPTOMS ARE UNCONTROLLED . Esophageal Reflux - the patient has be en counseled against excessive intake of caffeine, spicy foods, peppermint, and cinnamon - all of which can exacerbate esophageal reflux. The patient is to take medications as prescribed and call the office if the symptoms are not improving. . Hypertension - wel l controlled - continue with current medications, continue with no added salt diet. Pt has been encouraged to exercise daily. The pt has been advised to call the office if there are any acute concerns about change in blood pressure readings at home. Back pain - improving - continue with current treatment - continue with physical therapy. . Hypertension - unc ontrolled - the patient's medications have been modified as documented in the visit note. The patient has been counseled to cut back on salt in diet for a no added salt diet, low fat diet, start an exercise program with low weight bearing exercises and higher aerobic activity for heart health. The patient is to check blood pressure readings as an outpatient and either fax, call, or email the readings to the office next week for practitioner to review. The pt is to call for acute concerns. Pt changed to clonidine patch - stop clonidine pills. Fatigue, Snoring disorder, excessive daytime sleepiness - recommended that Don have a sleep study - he did not pass a sleep study done over 7 years ago - but never got a machine for the sleep apnea - it was around the time he had a bypass and "it got lost in the aftermath of his bypass". I have recommended and had staff make a referral for sleep study at the hospital. Diabetes Mellitus - controlled - per recent FSBS reports. I have recommended for the patient to have follow up labs prior to the next office visit. The patient has been instructed to continue with current medications as previously directed, continue with regular FSBS monitoring to assure continued control of diabetes. Pt to call for any acute concerns, complaints, or if the blood glucose readings are starting to become less controlled. . Hypertension - wel l controlled - continue with current medications, continue with no added salt diet. Pt has been encouraged to exercise daily. The pt has been advised to call the office if there are any acute concerns about change in blood pressure readings at home. Diabetes Mellitus - controlled - per recent FSBS reports. I have recommended for the patient to have follow up labs prior to the next office visit. The patient has been instructed to continue with current medications as previously directed, continue with regular FSBS monitoring to assure continued control of diabetes. Pt to call for any acute concerns, complaints, or if the blood glucose readings are starting to become less controlled. Esophageal Reflux - the patient has been counseled against excessive intake of caffiene, spicy foods, peppermint, and cinnamon - all of which can exacerbate esophageal reflux. The patient is to take medications as prescribed and call the office if the symptoms are not improving. Pt given rx for carafate, pt to call if not improved. refill phenergan wit h codeine cough syrup call if cough does not resolve and we can call in an antbiotic prevnar 13 when you are feeling better . Medicare Exam - today we discussed the patients past history, immunizations, preventative exams/evaluations - colonoscopy, fecal occult blood testing, routine labs for renal function, glucose, cholesterol, osteoporosis evaluations, cardiovascular testing and cancer screenings. We have also discussed mental health and the signs/symptoms of depression. The patient was advised of home safety evaluations and the need to make sure that as the aging process continues, we need to be aware of different ways to make the home a safer place to reside. The patient has also been counseled that exercise is necessary - and of utmost importance as we age to help decrease fall risk and to maintain independence in the home. Today we discussed the need for the patient to create paperwork for Advanced directives as well as for the patient to provide this office with a copy of her DOP[employer] paperwork for health care surrogate. Cough- improving -call if symptoms do not resolve . ADMIT FROM CLINIC TO HOSPITAL - PT IS ACUTELY ILL, REQUIRES HOSPITALIZATION. THE PATIENT HAS BEEN EVALUATED IN CLINIC AND THIS STANDS THE HOSPITAL HISTORY AND PHYSICAL EXAMINATION. THE PATIENT HAS BEEN SENT TO THE HOSPITAL WITH WRITTEN ORDERS FOR TREATMENT AND EVALUATION OF THE ACUTE ILLNESS. Pt to be started on rocephin, iv fluids, and will check labs - chem panel, cbc, tsh. . Diabetes Mellitus - controlled - per recent FSBS reports. I have recommended for the patient to have follow up labs prior to the next office visit. The patient has been instructed to continue with current medications as previously directed, continue with regular FSBS monitoring to assure continued control of diabetes. Pt to call for any acute concerns, complaints, or if the blood glucose readings are starting to become less controlled. I have recommended for the patient to follow more strictly to the diabetic diet as discussed in clinic to allow for greater blood glucose control. Increase activity level - increase aerobic exercise Hyperlipidemia - pt has been counseled about appropriate diet, exercise, and need for low fat food choices. I have discussed the need for the patient to take medications as prescribed. If the patient has negative side effects from the medication, they are to CALL the office and not abruptly discontinue the medication without discussion with a practicioner in the office. We will check labs in 3-6 months for follow up on the patient's chronic medical problem and to assure normal liver response to medications. Pt does not want to start on statin - I will allow for him to try more aggressive exercise - if he does not have improved HDL, then need to consider starting on a statin at least three times a week. He states that he has been counseled by me and Dr. Culver in the past that he needed to be on a statin, but is hesitant to do so as he had myalgias with previous statin use. Hypertension - well controlled - continue with current medications, continue with no added salt diet. Pt has been encouraged to exercise daily. The pt has been advised to call the office if there are any acute concerns about change in blood pressure readings at home. . Edema - pt has bee n advised to elevate legs to prevent dependent edema. Diuretic use has been discussed and pt has been instructed in appropriate use of such medication as necessary to further attempt to reduce peripheral edema. On the days he takes diruetic (LASIX) drink an extra glass of orange juice. Hypertension - fairly well controlled - continue with current medications, continue with no added salt diet. Pt has been encouraged to exercise daily. The pt has been advised to call the office if there are any acute concerns about change in blood pressure readings at home. . Hypertension - unc ontrolled - the patient's medications have been modified as documented in the visit note. The patient has been counseled to cut back on salt in diet for a no added salt diet, low fat diet, start an exercise program with low weight bearing exercises and higher aerobic activity for heart health. The patient is to check blood pressure readings as an outpatient and either fax, call, or email the readings to the office next week for practitioner to review. The pt is to call for acute concerns. Anemia - change iron to two days a week. Urge Incontinence - monitor symptoms - hold myrbetric x 1 week - report back to us about symptoms off f the myrbectric and he will follow up on his blood pressure that may be elevated due to his myrbetric Pt to increase the p epcid to twice daily Pt to keep appt with Dr. Bello on 06/25/13 @10:10AM. Esophageal Reflux - the patient has been counseled against excessive intake of caffiene, spicy foods, peppermint, and cinnamon - all of which can exacerbate esophageal reflux. The patient is to take medications as prescribed and call the office if the symptoms are not improving. Pt to increase the pepcid to twice daily Pt to keep appt with Dr. Bello on 06/25/13 @10:10AM . Hypertension - wel l controlled - continue with current medications, continue with no added salt diet. Pt has been encouraged to exercise daily. The pt has been advised to call the office if there are any acute concerns about change in blood pressure readings at home. Atrial Fibrillation - pt on chronic anticoagulation and is currently rate controlled. The pt is to have labs done as appropriate to monitor medication levels and is to report if they start to feel as if their heart rate is becoming uncontrolled. DM - FSBS fairly well controlled - continue current treatments - monitor symptoms. . Diabetes Mellitus - controlled - per recent FSBS reports. I have recommended for the patient to have follow up labs prior to the next office visit. The patient has been instructed to continue with current medications as previously directed, continue with regular FSBS monitoring to assure continued control of diabetes. Pt to call for any acute concerns, complaints, or if the blood glucose readings are starting to become less controlled. Biceps tendonitis - pt to do exercises as directed, antiinflammatories directed to be taken per RX instructions and pt to call if symptoms are not improved. . Hypertension - wel l controlled - continue with current medications, continue with no added salt diet. Pt has been encouraged to exercise daily. The pt has been advised to call the office if there are any acute concerns about change in blood pressure readings at home. Diabetes Mellitus - controlled - per recent FSBS reports. I have recommended for the patient to have follow up labs prior to the next office visit. The patient has been instructed to continue with current medications as previously directed, continue with regular FSBS monitoring to assure continued control of diabetes. Pt to call for any acute concerns, complaints, or if the blood glucose readings are starting to become less controlled. stop the pravastatin - . Hypertension - well controlled - louise nue with current medications, continue with no added salt diet. Pt has been encouraged to exercise daily. The pt has been advised to call the office if there are any acute concerns about change in blood pressure readings at home. Myalgias - stop pravastatin - continue with coenzyme q10. Monitor symptoms. Urinary frequency - check urinalysis. . Hypertension - wel l controlled - continue with current medications, continue with no added salt diet. Pt has been encouraged to exercise daily. The pt has been advised to call the office if there are any acute concerns about change in blood pressure readings at home. Diabetes Mellitus - controlled - per recent FSBS reports. I have recommended for the patient to have follow up labs prior to the next office visit. The patient has been instructed to continue with current medications as previously directed, continue with regular FSBS monitoring to assure continued control of diabetes. Pt to call for any acute concerns, complaints, or if the blood glucose readings are starting to become less controlled. Abdominal/Flank pain - recommended pt to start stretching exercises for his flank/back pain - pt is not interested in physical therapy at this time. . Right posterior fl ank/rib pain - need to ask Dr. Eros Worley if there is a specific test he would like to see done prior to an appt - question if nerve block would help his pain Hypertension - well controlled - continue with current medications, continue with no added salt diet. Pt has been encouraged to exercise daily. The pt has been advised to call the office if there are any acute concerns about change in blood pressure readings at home. . Hypertension - wel l controlled - continue with current medications, continue with no added salt diet. Pt has been encouraged to exercise daily. The pt has been advised to call the office if there are any acute concerns about change in blood pressure readings at home. Edema - bilateral lower legs - rx for lasix. take a probiotic tati ly while taking the doxycycline . Hypertension - well controlled - louise nue with current medications, continue with no added salt diet. Pt has been encouraged to exercise daily. The pt has been advised to call the office if there are any acute concerns about change in blood pressure readings at home. Atrial Fibrillation - pt on chronic anticoagulation and is currently rate controlled. The pt is to have labs done as appropriate to monitor medication levels and is to report if they start to feel as if their heart rate is becoming uncontrolled. Tick Borne Illness - continue with doxycycline plans - twice daily x 2 weeks, then daily x 1 month then prn symptoms of tick born illness. I sent a prescriptio n for doxycycline 100mg twice daily to [facility]-start it this evening Call if you are not better or if any worse. . URI - Pt advised to increase fluids, vitamin C. Discussed natural and expected course of this diagnosis and need to alert me if symtpoms do not follow expected course, or if any worse. RX sent to patient's pharmacy. Allergies - Advised avoidance of allergens if possible, we discussed natural and expected course of this diagnosis and need to alert me if symtpoms do not follow expected course, or if any worse. Recommend claritin or zyrtec daily. PT TO INCREASE LOSAR WAGNER TO 100MG DAILY.. Diabetes Mellitus - controlled - per recent FSBS reports. I have recommended for the patient to have follow up labs prior to the next office visit. The patient has been instructed to continue with current medications as previously directed, continue with regular FSBS monitoring to assure continued control of diabetes. Pt to call for any acute concerns, complaints, or if the blood glucose readings are starting to become less controlled. Hypertension - uncontrolled - the patient's medications have been modified as documented in the visit note. The patient has been counseled to cut back on salt in diet for a no added salt diet, low fat diet, start an exercise program with low weight bearing exercises and higher aerobic activity for heart health. The patient is to check blood pressure readings as an outpatient and either fax, call, or email the readings to the office next week for practicioner to review. The pt is to call for acute concerns. PT TO INCREASE LOSARTAN TO 100MG DAILY. PT TO INCREASE EXERCISE - AEROBIC EXERCISE- TO HELP IMPROVE HDL AND DECREASE ABDOMINAL WEIGHT. . Bronchitis - acute case of bronchitis identified. Pt has been given antibiotics, breathing treatments as appropriate, and pt has been instructed to call if symptoms are not improved, or if symptoms acutely worsen. URI - Pt advised to increase fluids, vitamin C. Discussed natural and expected course of this diagnosis and need to alert me if symtpoms do not follow expected course, or if any worse. RX sent to patient's pharmacy. . Hypertension - wel l controlled - continue with current medications, continue with no added salt diet. Pt has been encouraged to exercise daily. The pt has been advised to call the office if there are any acute concerns about change in blood pressure readings at home. Co-Enzyme Q 10 - or Co Q 10 - take daily - to help relieve shoulder pain. Increase antioxidants in diet (blue villegas, pomegranate). . In Grown toenail - sees Dr Mauricio next week, until then soak toe in Epson salt water at night and after put cotton under toenail to help relieve pressure. Reflux - Take protonix in the evening for 1 week see if symptoms resolve, if not increase to twice a day for 1 week, call office to let know if symptoms are improved or not. Co-Enzyme Q 10 - or Co Q 10 - take daily - to help relieve shoulder pain. Increase antioxidants in diet (blue villegas, pomegranate). . Diabetes Mellitus - controlled - per recent FSBS reports. I have recommended for the patient to have follow up labs prior to the next office visit. The patient has been instructed to continue with current medications as previously directed, continue with regular FSBS monitoring to assure continued control of diabetes. Pt to call for any acute concerns, complaints, or if the blood glucose readings are starting to become less controlled. Noflu shots available, recommend pt to go to [facility] for the shot. Kidney stone - keep appt with Dr. Hewitt for planned procedure for removal of kidney stone. . Chestwall pain - r ecommended use of topical antiinflammatory/topical aspercreme. HTN - not well controlled today - but pt has reports of good blood pressure control. DM- controlled per patient report. . Tic Bite - improvi ng - rx for blue goo TYLENOL 2 PILLS THRE E TIMES DAILY X 1 WEEK -TAKE WITH FOOD CHECK LABS LET ME KNOW IF YOUR JOINT PAIN DOES NOT IMPROVE CHECK LABS . Edema - pt has been advised to elevate legs to prevent dependent edema, compression has been recommended to help to naturally decrease peripheral edema. Diuretic use has been discussed and pt has been instructed in appropriate use of such medication as necessary to further attempt to reduce peripheral edema. Hypertension - well controlled - continue with current medications, continue with no added salt diet. Pt has been encouraged to exercise daily. The pt has been advised to call the office if there are any acute concerns about change in blood pressure readings at home. Joint pain -use tylenol as directed-check labs- call if pain does not resolve DM-check labs . URI - Pt advised t o increase fluids, vitamin C. Discussed natural and expected course of this diagnosis and need to alert me if symptoms do not follow expected course, or if any worse. RX sent to patient's pharmacy. change diltiazem fro m 180mg - new dose is 120mg - start this tomorrow. tonight - if heart rate is at or below 60, decrease the metoprolol to 50mg. new parameters if heart rate is at or below 55, decrease dose of metoprolol from 100mg down to 50mg. call if heart rate is above 100, or below 50. . Hypertension - well controlled - louise nue with current medications, continue with no added salt diet. Pt has been encouraged to exercise daily. The pt has been advised to call the office if there are any acute concerns about change in blood pressure readings at home. Atrial Fibrillation - pt on chronic anticoagulation and is currently rate controlled. The pt is to have labs done as appropriate to monitor medication levels and is to report if they start to feel as if their heart rate is becoming uncontrolled. change diltiazem from 180mg - new dose is 120mg - start this tomorrow. tonight - if heart rate is at or below 60, decrease the metoprolol to 50mg. new parameters if heart rate is at or below 55, decrease dose of metoprolol from 100mg down to 50mg. call if heart rate is above 100, or below 50. Fatigue - improved since stopping amiodarone get the dissolving b 12 tabs - and okay to take the b vitamins with biotin . Recurrent urinary tract infection - mo nitor symptoms - pt has had full treatment for infection and is to let us know if infection symptoms return. . Hypertension - wel l controlled - continue with current medications, continue with no added salt diet. Pt has been encouraged to exercise daily. The pt has been advised to call the office if there are any acute concerns about change in blood pressure readings at home. Diabetes Mellitus - controlled - per recent FSBS reports. I have recommended for the patient to have follow up labs prior to the next office visit. The patient has been instructed to continue with current medications as previously directed, continue with regular FSBS monitoring to assure continued control of diabetes. Pt to call for any acute concerns, complaints, or if the blood glucose readings are starting to become less controlled. Cough - recent dx of pneumonia - pt sent to hospital for xray. extension of antibiotics - doxycycline 100mg bid x 7 more days. . Hypertension - wel l controlled - continue with current medications, continue with no added salt diet. Pt has been encouraged to exercise daily. The pt has been advised to call the office if there are any acute concerns about change in blood pressure readings at home. Myalgias - improved - no change in current management go back to just one losartan daily hold the fenofibrate (generic tricor) . Hypertension - well controlled - louise nue with current medications, continue with no added salt diet. Pt has been encouraged to exercise daily. The pt has been advised to call the office if there are any acute concerns about change in blood pressure readings at home. Diabetes Mellitus - controlled - per recent FSBS reports. I have recommended for the patient to have follow up labs prior to the next office visit. The patient has been instructed to continue with current medications as previously directed, continue with regular FSBS monitoring to assure continued control of diabetes. Pt to call for any acute concerns, complaints, or if the blood glucose readings are starting to become less controlled. tiger balm - muscle rub . Hypertension - well controlled - louise nue with current medications, continue with no added salt diet. Pt has been encouraged to exercise daily. The pt has been advised to call the office if there are any acute concerns about change in blood pressure readings at home. Atrial Fibrillation - pt on chronic anticoagulation and is currently rate controlled. The pt is to have labs done as appropriate to monitor medication levels and is to report if they start to feel as if their heart rate is becoming uncontrolled. Back pain - recommended muscle rub . Hypertension - wel l controlled - continue with current medications, continue with no added salt diet. Pt has been encouraged to exercise daily. The pt has been advised to call the office if there are any acute concerns about change in blood pressure readings at home. Diabetes Mellitus - controlled - per recent FSBS reports. I have recommended for the patient to have follow up labs prior to the next office visit. The patient has been instructed to continue with current medications as previously directed, continue with regular FSBS monitoring to assure continued control of diabetes. Pt to call for any acute concerns, complaints, or if the blood glucose readings are starting to become less controlled. Chest xray at the [facility]. Bronchitis-cough - acute case of bronchitis identified. Pt has been given antibiotics, breathing treatments as appropriate, and pt has been instructed to call if symptoms are not improved, or if symptoms acutely worsen. sample of albuterol inhaler provided, demonstrated and instructed on use. Plan for chest xray today at the hospital. pt to keep on losartan bystolic and start on clonidine 0.1mg twice daily. . Hypertension - uncontrolled - the elvis ent's medications have been modified as documented in the visit note. The patient has been counseled to cut back on salt in diet for a no added salt diet, low fat diet, start an exercise program with low weight bearing exercises and higher aerobic activity for heart health. The patient is to check blood pressure readings as an outpatient and either fax, call, or email the readings to the office next week for practitioner to review. The pt is to call for acute concerns. pt to keep on losartan bystolic and start on clonidine 0.1mg twice daily. Diabetes Mellitus - controlled - per recent FSBS reports. I have recommended for the patient to have follow up labs prior to the next office visit. The patient has been instructed to continue with current medications as previously directed, continue with regular FSBS monitoring to assure continued control of diabetes. Pt to call for any acute concerns, complaints, or if the blood glucose readings are starting to become less controlled. . Bradycardia - pt t o maintain current medication - I have recommended his to check his blood pressure and heart rate at 1 hour, 1.5 hour and 2 hour post intake of toprol. IF his heart rate is at or below 45, we need to consider decreasing his toprol to 25mg bid. Hypertension - well controlled - continue with current medications, continue with no added salt diet. Pt has been encouraged to exercise daily. The pt has been advised to call the office if there are any acute concerns about change in blood pressure readings at home. flu shot given in clinic today . Diabetes Mellitus - controlled - per recent FSBS reports. I have recommended for the patient to have follow up labs prior to the next office visit. The patient has been instructed to continue with current medications as previously directed, continue with regular FSBS monitoring to assure continued control of diabetes. Pt to call for any acute concerns, complaints, or if the blood glucose readings are starting to become less controlled. Hypertension - well controlled - continue with current medications, continue with no added salt diet. Pt has been encouraged to exercise daily. The pt has been advised to call the office if there are any acute concerns about change in blood pressure readings at home. . Continued fatigue, malaise post hospitalization - pt to expect some fatigue - however, will check chem panel, cbc since he had neutropenia in hospital and elevated creatinine and liver enzymes. Hypertension - not optimally controlled but pt to continue with current medications, continue with no added salt diet. Pt has been encouraged to exercise daily. The pt has been advised to call the office if there are any acute concerns about change in blood pressure readings at home. Diabetes Mellitus - controlled - per recent FSBS reports. I have recommended for the patient to have follow up labs prior to the next office visit. The patient has been instructed to continue with current medications as previously directed, continue with regular FSBS monitoring to assure continued control of diabetes. Pt to call for any acute concerns, complaints, or if the blood glucose readings are starting to become less controlled. . Hypertension - wel l controlled - continue with current medications, continue with no added salt diet. Pt has been encouraged to exercise daily. The pt has been advised to call the office if there are any acute concerns about change in blood pressure readings at home. Atrial Fibrillation - pt on chronic anticoagulation and is currently rate controlled. The pt is to have labs done as appropriate to monitor medication levels and is to report if they start to feel as if their heart rate is becoming uncontrolled. . Hypertension - wel l controlled - continue with current medications, continue with no added salt diet. Pt has been encouraged to exercise daily. The pt has been advised to call the office if there are any acute concerns about change in blood pressure readings at home. Hyperlipidemia - pt has been counseled about appropriate diet, exercise, and need for low fat food choices. I have discussed the need for the patient to take medications as prescribed. If the patient has negative side effects from the medication, they are to CALL the office and not abruptly discontinue the medication without discussion with a practitioner in the office. We will check labs in 3-6 months for follow up on the patient's chronic medical problem and to assure normal liver response to medications. Samples of crestor given to patient today . Hypertension - unc ontrolled - the patient's medications have been modified as documented in the visit note. The patient has been counseled to cut back on salt in diet for a no added salt diet, low fat diet, start an exercise program with low weight bearing exercises and higher aerobic activity for heart health. . Fatigue, Snoring disorder, excessive daytime sleepiness - recommended that Don have a sleep study - he did not pass a sleep study done over 7 years ago - but never got a machine for the sleep apnea - it was around the time he had a bypass and "it got lost in the aftermath of his bypass". I have recommended and had staff make a referral for sleep study at the hospital. Diabetes Mellitus - controlled - per recent FSBS reports. I have recommended for the patient to have follow up labs prior to the next office visit. The patient has been instructed to continue with current medications as previously directed, continue with regular FSBS monitoring to assure continued control of diabetes. Pt to call for any acute concerns, complaints, or if the blood glucose readings are starting to become less controlled. . Obesity - chronic issue with this patient. The pt has been counseled about diet changes, calorie restriction, and need to exercise. Pt will RTC in one month for weight check. Diabetes Mellitus - controlled - per recent FSBS reports. I have recommended for the patient to have follow up labs prior to the next office visit. The patient has been instructed to continue with current medications as previously directed, continue with regular FSBS monitoring to assure continued control of diabetes. Pt to call for any acute concerns, complaints, or if the blood glucose readings are starting to become less controlled. I have recommended for the patient to follow more strictly to the diabetic diet as discussed in clinic to allow for greater blood glucose control. Increase activity level - increase aerobic exercise Hyperlipidemia - pt has been counseled about appropriate diet, exercise, and need for low fat food choices. I have discussed the need for the patient to take medications as prescribed. If the patient has negative side effects from the medication, they are to CALL the office and not abruptly discontinue the medication without discussion with a practicioner in the office. We will check labs in 3-6 months for follow up on the patient's chronic medical problem and to assure normal liver response to medications. Pt does not want to start on statin - I will allow for him to try more aggressive exercise - if he does not have improved HDL, then need to consider starting on a statin at least three times a week. He states that he has been counseled by me and Dr. Culver in the past that he needed to be on a statin, but is hesitant to do so as he had myalgias with previous statin use. Hypertension - well controlled - continue with current medications, continue with no added salt diet. Pt has been encouraged to exercise daily. The pt has been advised to call the office if there are any acute concerns about change in blood pressure readings at home. . Hospital follow up - This was a follow up appointment from the patient's hospitalization during which time Dr. Shetty formulated the assessment and plan for the follow up on this patient's medical condition. . Hypertension - wel l controlled - continue with current medications, continue with no added salt diet. Pt has been encouraged to exercise daily. The pt has been advised to call the office if there are any acute concerns about change in blood pressure readings at home. Hyperlipidemia - pt has been counseled about appropriate diet, exercise, and need for low fat food choices. I have discussed the need for the patient to take medications as prescribed. If the patient has negative side effects from the medication, they are to CALL the office and not abruptly discontinue the medication without discussion with a practitioner in the office. We will check labs in 3-6 months for follow up on the patient's chronic medical problem and to assure normal liver response to medications. Edema - pt has been advised to elevate legs to prevent dependent edema, compression has been recommended to help to naturally decrease peripheral edema. Diuretic use has been discussed and pt has been instructed in appropriate use of such medication as necessary to further attempt to reduce peripheral edema. Diabetes Mellitus - controlled - per recent FSBS reports. I have recommended for the patient to have follow up labs prior to the next office visit. The patient has been instructed to continue with current medications as previously directed, continue with regular FSBS monitoring to assure continued control of diabetes. Pt to call for any acute concerns, complaints, or if the blood glucose readings are starting to become less controlled. Comment . Diabetes Mellitus - controlled - per recent FSBS reports. I have recommended for the patient to have follow up labs prior to the next office visit. The patient has been instructed to continue with current medications as previously directed, continue with regular FSBS monitoring to assure continued control of diabetes. Pt to call for any acute concerns, complaints, or if the blood glucose readings are starting to become less controlled. Left hip pain - I have recommended a referral to Dr. Salgado for injection bursa at iliac crest. Hypertension - well controlled - continue with current medications, continue with no added salt diet. Pt has been encouraged to exercise daily. The pt has been advised to call the office if there are any acute concerns about change in blood pressure readings at home. Thrush - rx for nystatin swish and swallow. DEXILANT 60MG DAILY SULCRAFATE BEFORE MEALS AND AT BEDTIME CALL IF YOUR SYMPTOMS ARE UNCONTROLLED . Esophageal Reflux - the patient has be en counseled against excessive intake of caffeine, spicy foods, peppermint, and cinnamon - all of which can exacerbate esophageal reflux. The patient is to take medications as prescribed and call the office if the symptoms are not improving. . Hypertension - wel l controlled - continue with current medications, continue with no added salt diet. Pt has been encouraged to exercise daily. The pt has been advised to call the office if there are any acute concerns about change in blood pressure readings at home. Back pain - improving - continue with current treatment - continue with physical therapy. . Hypertension - unc ontrolled - the patient's medications have been modified as documented in the visit note. The patient has been counseled to cut back on salt in diet for a no added salt diet, low fat diet, start an exercise program with low weight bearing exercises and higher aerobic activity for heart health. The patient is to check blood pressure readings as an outpatient and either fax, call, or email the readings to the office next week for practitioner to review. The pt is to call for acute concerns. Pt changed to clonidine patch - stop clonidine pills. Fatigue, Snoring disorder, excessive daytime sleepiness - recommended that Don have a sleep study - he did not pass a sleep study done over 7 years ago - but never got a machine for the sleep apnea - it was around the time he had a bypass and "it got lost in the aftermath of his bypass". I have recommended and had staff make a referral for sleep study at the hospital. Diabetes Mellitus - controlled - per recent FSBS reports. I have recommended for the patient to have follow up labs prior to the next office visit. The patient has been instructed to continue with current medications as previously directed, continue with regular FSBS monitoring to assure continued control of diabetes. Pt to call for any acute concerns, complaints, or if the blood glucose readings are starting to become less controlled. . Hypertension - wel l controlled - continue with current medications, continue with no added salt diet. Pt has been encouraged to exercise daily. The pt has been advised to call the office if there are any acute concerns about change in blood pressure readings at home. Diabetes Mellitus - controlled - per recent FSBS reports. I have recommended for the patient to have follow up labs prior to the next office visit. The patient has been instructed to continue with current medications as previously directed, continue with regular FSBS monitoring to assure continued control of diabetes. Pt to call for any acute concerns, complaints, or if the blood glucose readings are starting to become less controlled. Esophageal Reflux - the patient has been counseled against excessive intake of caffiene, spicy foods, peppermint, and cinnamon - all of which can exacerbate esophageal reflux. The patient is to take medications as prescribed and call the office if the symptoms are not improving. Pt given rx for carafate, pt to call if not improved. refill phenergan wit h codeine cough syrup call if cough does not resolve and we can call in an antbiotic prevnar 13 when you are feeling better . Medicare Exam - today we discussed the patients past history, immunizations, preventative exams/evaluations - colonoscopy, fecal occult blood testing, routine labs for renal function, glucose, cholesterol, osteoporosis evaluations, cardiovascular testing and cancer screenings. We have also discussed mental health and the signs/symptoms of depression. The patient was advised of home safety evaluations and the need to make sure that as the aging process continues, we need to be aware of different ways to make the home a safer place to reside. The patient has also been counseled that exercise is necessary - and of utmost importance as we age to help decrease fall risk and to maintain independence in the home. Today we discussed the need for the patient to create paperwork for Advanced directives as well as for the patient to provide this office with a copy of her DOP[employer] paperwork for health care surrogate. Cough- improving -call if symptoms do not resolve . ADMIT FROM CLINIC TO HOSPITAL - PT IS ACUTELY ILL, REQUIRES HOSPITALIZATION. THE PATIENT HAS BEEN EVALUATED IN CLINIC AND THIS STANDS THE HOSPITAL HISTORY AND PHYSICAL EXAMINATION. THE PATIENT HAS BEEN SENT TO THE HOSPITAL WITH WRITTEN ORDERS FOR TREATMENT AND EVALUATION OF THE ACUTE ILLNESS. Pt to be started on rocephin, iv fluids, and will check labs - chem panel, cbc, tsh. . Diabetes Mellitus - controlled - per recent FSBS reports. I have recommended for the patient to have follow up labs prior to the next office visit. The patient has been instructed to continue with current medications as previously directed, continue with regular FSBS monitoring to assure continued control of diabetes. Pt to call for any acute concerns, complaints, or if the blood glucose readings are starting to become less controlled. I have recommended for the patient to follow more strictly to the diabetic diet as discussed in clinic to allow for greater blood glucose control. Increase activity level - increase aerobic exercise Hyperlipidemia - pt has been counseled about appropriate diet, exercise, and need for low fat food choices. I have discussed the need for the patient to take medications as prescribed. If the patient has negative side effects from the medication, they are to CALL the office and not abruptly discontinue the medication without discussion with a practicioner in the office. We will check labs in 3-6 months for follow up on the patient's chronic medical problem and to assure normal liver response to medications. Pt does not want to start on statin - I will allow for him to try more aggressive exercise - if he does not have improved HDL, then need to consider starting on a statin at least three times a week. He states that he has been counseled by me and Dr. Culver in the past that he needed to be on a statin, but is hesitant to do so as he had myalgias with previous statin use. Hypertension - well controlled - continue with current medications, continue with no added salt diet. Pt has been encouraged to exercise daily. The pt has been advised to call the office if there are any acute concerns about change in blood pressure readings at home. . Edema - pt has bee n advised to elevate legs to prevent dependent edema. Diuretic use has been discussed and pt has been instructed in appropriate use of such medication as necessary to further attempt to reduce peripheral edema. On the days he takes diruetic (LASIX) drink an extra glass of orange juice. Hypertension - fairly well controlled - continue with current medications, continue with no added salt diet. Pt has been encouraged to exercise daily. The pt has been advised to call the office if there are any acute concerns about change in blood pressure readings at home. . Hypertension - unc ontrolled - the patient's medications have been modified as documented in the visit note. The patient has been counseled to cut back on salt in diet for a no added salt diet, low fat diet, start an exercise program with low weight bearing exercises and higher aerobic activity for heart health. The patient is to check blood pressure readings as an outpatient and either fax, call, or email the readings to the office next week for practitioner to review. The pt is to call for acute concerns. Anemia - change iron to two days a week. Urge Incontinence - monitor symptoms - hold myrbetric x 1 week - report back to us about symptoms off f the myrbectric and he will follow up on his blood pressure that may be elevated due to his myrbetric Pt to increase the p epcid to twice daily Pt to keep appt with Dr. Bello on 06/25/13 @10:10AM. Esophageal Reflux - the patient has been counseled against excessive intake of caffiene, spicy foods, peppermint, and cinnamon - all of which can exacerbate esophageal reflux. The patient is to take medications as prescribed and call the office if the symptoms are not improving. Pt to increase the pepcid to twice daily Pt to keep appt with Dr. Bello on 06/25/13 @10:10AM . Hypertension - wel l controlled - continue with current medications, continue with no added salt diet. Pt has been encouraged to exercise daily. The pt has been advised to call the office if there are any acute concerns about change in blood pressure readings at home. Atrial Fibrillation - pt on chronic anticoagulation and is currently rate controlled. The pt is to have labs done as appropriate to monitor medication levels and is to report if they start to feel as if their heart rate is becoming uncontrolled. DM - FSBS fairly well controlled - continue current treatments - monitor symptoms. . Diabetes Mellitus - controlled - per recent FSBS reports. I have recommended for the patient to have follow up labs prior to the next office visit. The patient has been instructed to continue with current medications as previously directed, continue with regular FSBS monitoring to assure continued control of diabetes. Pt to call for any acute concerns, complaints, or if the blood glucose readings are starting to become less controlled. Biceps tendonitis - pt to do exercises as directed, antiinflammatories directed to be taken per RX instructions and pt to call if symptoms are not improved. . Hypertension - wel l controlled - continue with current medications, continue with no added salt diet. Pt has been encouraged to exercise daily. The pt has been advised to call the office if there are any acute concerns about change in blood pressure readings at home. Diabetes Mellitus - controlled - per recent FSBS reports. I have recommended for the patient to have follow up labs prior to the next office visit. The patient has been instructed to continue with current medications as previously directed, continue with regular FSBS monitoring to assure continued control of diabetes. Pt to call for any acute concerns, complaints, or if the blood glucose readings are starting to become less controlled. stop the pravastatin - . Hypertension - well controlled - louise nue with current medications, continue with no added salt diet. Pt has been encouraged to exercise daily. The pt has been advised to call the office if there are any acute concerns about change in blood pressure readings at home. Myalgias - stop pravastatin - continue with coenzyme q10. Monitor symptoms. Urinary frequency - check urinalysis. . Hypertension - wel l controlled - continue with current medications, continue with no added salt diet. Pt has been encouraged to exercise daily. The pt has been advised to call the office if there are any acute concerns about change in blood pressure readings at home. Diabetes Mellitus - controlled - per recent FSBS reports. I have recommended for the patient to have follow up labs prior to the next office visit. The patient has been instructed to continue with current medications as previously directed, continue with regular FSBS monitoring to assure continued control of diabetes. Pt to call for any acute concerns, complaints, or if the blood glucose readings are starting to become less controlled. Abdominal/Flank pain - recommended pt to start stretching exercises for his flank/back pain - pt is not interested in physical therapy at this time. . Right posterior fl ank/rib pain - need to ask Dr. Eros Worley if there is a specific test he would like to see done prior to an appt - question if nerve block would help his pain Hypertension - well controlled - continue with current medications, continue with no added salt diet. Pt has been encouraged to exercise daily. The pt has been advised to call the office if there are any acute concerns about change in blood pressure readings at home. . Hypertension - wel l controlled - continue with current medications, continue with no added salt diet. Pt has been encouraged to exercise daily. The pt has been advised to call the office if there are any acute concerns about change in blood pressure readings at home. Edema - bilateral lower legs - rx for lasix. take a probiotic tati ly while taking the doxycycline . Hypertension - well controlled - louise nue with current medications, continue with no added salt diet. Pt has been encouraged to exercise daily. The pt has been advised to call the office if there are any acute concerns about change in blood pressure readings at home. Atrial Fibrillation - pt on chronic anticoagulation and is currently rate controlled. The pt is to have labs done as appropriate to monitor medication levels and is to report if they start to feel as if their heart rate is becoming uncontrolled. Tick Borne Illness - continue with doxycycline plans - twice daily x 2 weeks, then daily x 1 month then prn symptoms of tick born illness. I sent a prescriptio n for doxycycline 100mg twice daily to [facility]-start it this evening Call if you are not better or if any worse. . URI - Pt advised to increase fluids, vitamin C. Discussed natural and expected course of this diagnosis and need to alert me if symtpoms do not follow expected course, or if any worse. RX sent to patient's pharmacy. Allergies - Advised avoidance of allergens if possible, we discussed natural and expected course of this diagnosis and need to alert me if symtpoms do not follow expected course, or if any worse. Recommend claritin or zyrtec daily. PT TO INCREASE LOSAR WAGNER TO 100MG DAILY.. Diabetes Mellitus - controlled - per recent FSBS reports. I have recommended for the patient to have follow up labs prior to the next office visit. The patient has been instructed to continue with current medications as previously directed, continue with regular FSBS monitoring to assure continued control of diabetes. Pt to call for any acute concerns, complaints, or if the blood glucose readings are starting to become less controlled. Hypertension - uncontrolled - the patient's medications have been modified as documented in the visit note. The patient has been counseled to cut back on salt in diet for a no added salt diet, low fat diet, start an exercise program with low weight bearing exercises and higher aerobic activity for heart health. The patient is to check blood pressure readings as an outpatient and either fax, call, or email the readings to the office next week for practicioner to review. The pt is to call for acute concerns. PT TO INCREASE LOSARTAN TO 100MG DAILY. PT TO INCREASE EXERCISE - AEROBIC EXERCISE- TO HELP IMPROVE HDL AND DECREASE ABDOMINAL WEIGHT. . Bronchitis - acute case of bronchitis identified. Pt has been given antibiotics, breathing treatments as appropriate, and pt has been instructed to call if symptoms are not improved, or if symptoms acutely worsen. URI - Pt advised to increase fluids, vitamin C. Discussed natural and expected course of this diagnosis and need to alert me if symtpoms do not follow expected course, or if any worse. RX sent to patient's pharmacy. . Hypertension - wel l controlled - continue with current medications, continue with no added salt diet. Pt has been encouraged to exercise daily. The pt has been advised to call the office if there are any acute concerns about change in blood pressure readings at home. Co-Enzyme Q 10 - or Co Q 10 - take daily - to help relieve shoulder pain. Increase antioxidants in diet (blue villegas, pomegranate). . In Grown toenail - sees Dr Mauricio next week, until then soak toe in Epson salt water at night and after put cotton under toenail to help relieve pressure. Reflux - Take protonix in the evening for 1 week see if symptoms resolve, if not increase to twice a day for 1 week, call office to let know if symptoms are improved or not. Co-Enzyme Q 10 - or Co Q 10 - take daily - to help relieve shoulder pain. Increase antioxidants in diet (blue villegas, pomegranate). . Diabetes Mellitus - controlled - per recent FSBS reports. I have recommended for the patient to have follow up labs prior to the next office visit. The patient has been instructed to continue with current medications as previously directed, continue with regular FSBS monitoring to assure continued control of diabetes. Pt to call for any acute concerns, complaints, or if the blood glucose readings are starting to become less controlled. Noflu shots available, recommend pt to go to [facility] or [facility] for the shot. Kidney stone - keep appt with Dr. Hewitt for planned procedure for removal of kidney stone. . Chestwall pain - r ecommended use of topical antiinflammatory/topical aspercreme. HTN - not well controlled today - but pt has reports of good blood pressure control. DM- controlled per patient report. . Tic Bite - improvi ng - rx for blue goo TYLENOL 2 PILLS THRE E TIMES DAILY X 1 WEEK -TAKE WITH FOOD CHECK LABS LET ME KNOW IF YOUR JOINT PAIN DOES NOT IMPROVE CHECK LABS . Edema - pt has been advised to elevate legs to prevent dependent edema, compression has been recommended to help to naturally decrease peripheral edema. Diuretic use has been discussed and pt has been instructed in appropriate use of such medication as necessary to further attempt to reduce peripheral edema. Hypertension - well controlled - continue with current medications, continue with no added salt diet. Pt has been encouraged to exercise daily. The pt has been advised to call the office if there are any acute concerns about change in blood pressure readings at home. Joint pain -use tylenol as directed-check labs- call if pain does not resolve DM-check labs . URI - Pt advised t o increase fluids, vitamin C. Discussed natural and expected course of this diagnosis and need to alert me if symptoms do not follow expected course, or if any worse. RX sent to patient's pharmacy. change diltiazem fro m 180mg - new dose is 120mg - start this tomorrow. tonight - if heart rate is at or below 60, decrease the metoprolol to 50mg. new parameters if heart rate is at or below 55, decrease dose of metoprolol from 100mg down to 50mg. call if heart rate is above 100, or below 50. . Hypertension - well controlled - louise nue with current medications, continue with no added salt diet. Pt has been encouraged to exercise daily. The pt has been advised to call the office if there are any acute concerns about change in blood pressure readings at home. Atrial Fibrillation - pt on chronic anticoagulation and is currently rate controlled. The pt is to have labs done as appropriate to monitor medication levels and is to report if they start to feel as if their heart rate is becoming uncontrolled. change diltiazem from 180mg - new dose is 120mg - start this tomorrow. tonight - if heart rate is at or below 60, decrease the metoprolol to 50mg. new parameters if heart rate is at or below 55, decrease dose of metoprolol from 100mg down to 50mg. call if heart rate is above 100, or below 50. Fatigue - improved since stopping amiodarone get the dissolving b 12 tabs - and okay to take the b vitamins with biotin . Recurrent urinary tract infection - mo nitor symptoms - pt has had full treatment for infection and is to let us know if infection symptoms return. . Hypertension - wel l controlled - continue with current medications, continue with no added salt diet. Pt has been encouraged to exercise daily. The pt has been advised to call the office if there are any acute concerns about change in blood pressure readings at home. Diabetes Mellitus - controlled - per recent FSBS reports. I have recommended for the patient to have follow up labs prior to the next office visit. The patient has been instructed to continue with current medications as previously directed, continue with regular FSBS monitoring to assure continued control of diabetes. Pt to call for any acute concerns, complaints, or if the blood glucose readings are starting to become less controlled. Cough - recent dx of pneumonia - pt sent to hospital for xray. extension of antibiotics - doxycycline 100mg bid x 7 more days. . Hypertension - wel l controlled - continue with current medications, continue with no added salt diet. Pt has been encouraged to exercise daily. The pt has been advised to call the office if there are any acute concerns about change in blood pressure readings at home. Myalgias - improved - no change in current management go back to just one losartan daily hold the fenofibrate (generic tricor) . Hypertension - well controlled - louise nue with current medications, continue with no added salt diet. Pt has been encouraged to exercise daily. The pt has been advised to call the office if there are any acute concerns about change in blood pressure readings at home. Diabetes Mellitus - controlled - per recent FSBS reports. I have recommended for the patient to have follow up labs prior to the next office visit. The patient has been instructed to continue with current medications as previously directed, continue with regular FSBS monitoring to assure continued control of diabetes. Pt to call for any acute concerns, complaints, or if the blood glucose readings are starting to become less controlled. tiger balm - muscle rub . Hypertension - well controlled - louise nue with current medications, continue with no added salt diet. Pt has been encouraged to exercise daily. The pt has been advised to call the office if there are any acute concerns about change in blood pressure readings at home. Atrial Fibrillation - pt on chronic anticoagulation and is currently rate controlled. The pt is to have labs done as appropriate to monitor medication levels and is to report if they start to feel as if their heart rate is becoming uncontrolled. Back pain - recommended muscle rub . Hypertension - wel l controlled - continue with current medications, continue with no added salt diet. Pt has been encouraged to exercise daily. The pt has been advised to call the office if there are any acute concerns about change in blood pressure readings at home. Diabetes Mellitus - controlled - per recent FSBS reports. I have recommended for the patient to have follow up labs prior to the next office visit. The patient has been instructed to continue with current medications as previously directed, continue with regular FSBS monitoring to assure continued control of diabetes. Pt to call for any acute concerns, complaints, or if the blood glucose readings are starting to become less controlled. Chest xray at the [facility]. Bronchitis-cough - acute case of bronchitis identified. Pt has been given antibiotics, breathing treatments as appropriate, and pt has been instructed to call if symptoms are not improved, or if symptoms acutely worsen. sample of albuterol inhaler provided, demonstrated and instructed on use. Plan for chest xray today at the hospital. pt to keep on losartan bystolic and start on clonidine 0.1mg twice daily. . Hypertension - uncontrolled - the elvis ent's medications have been modified as documented in the visit note. The patient has been counseled to cut back on salt in diet for a no added salt diet, low fat diet, start an exercise program with low weight bearing exercises and higher aerobic activity for heart health. The patient is to check blood pressure readings as an outpatient and either fax, call, or email the readings to the office next week for practitioner to review. The pt is to call for acute concerns. pt to keep on losartan bystolic and start on clonidine 0.1mg twice daily. Diabetes Mellitus - controlled - per recent FSBS reports. I have recommended for the patient to have follow up labs prior to the next office visit. The patient has been instructed to continue with current medications as previously directed, continue with regular FSBS monitoring to assure continued control of diabetes. Pt to call for any acute concerns, complaints, or if the blood glucose readings are starting to become less controlled. . Bradycardia - pt t o maintain current medication - I have recommended his to check his blood pressure and heart rate at 1 hour, 1.5 hour and 2 hour post intake of toprol. IF his heart rate is at or below 45, we need to consider decreasing his toprol to 25mg bid. Hypertension - well controlled - continue with current medications, continue with no added salt diet. Pt has been encouraged to exercise daily. The pt has been advised to call the office if there are any acute concerns about change in blood pressure readings at home. flu shot given in clinic today . Right hip pain -di scussed with Dr Salgado's office-okay for injection today -instructed patient to follow up with them if pain does not resolve-kenalog injection today in the office- recommend heat this evening - instructed patient to call if symptoms do not improve or if any worse. . Diabetes Mellitus - controlled - per recent FSBS reports. I have recommended for the patient to have follow up labs prior to the next office visit. The patient has been instructed to continue with current medications as previously directed, continue with regular FSBS monitoring to assure continued control of diabetes. Pt to call for any acute concerns, complaints, or if the blood glucose readings are starting to become less controlled. Hypertension - well controlled - continue with current medications, continue with no added salt diet. Pt has been encouraged to exercise daily. The pt has been advised to call the office if there are any acute concerns about change in blood pressure readings at home. . Continued fatigue, malaise post hospitalization - pt to expect some fatigue - however, will check chem panel, cbc since he had neutropenia in hospital and elevated creatinine and liver enzymes. Hypertension - not optimally controlled but pt to continue with current medications, continue with no added salt diet. Pt has been encouraged to exercise daily. The pt has been advised to call the office if there are any acute concerns about change in blood pressure readings at home. Diabetes Mellitus - controlled - per recent FSBS reports. I have recommended for the patient to have follow up labs prior to the next office visit. The patient has been instructed to continue with current medications as previously directed, continue with regular FSBS monitoring to assure continued control of diabetes. Pt to call for any acute concerns, complaints, or if the blood glucose readings are starting to become less controlled. . Hypertension - wel l controlled - continue with current medications, continue with no added salt diet. Pt has been encouraged to exercise daily. The pt has been advised to call the office if there are any acute concerns about change in blood pressure readings at home. Atrial Fibrillation - pt on chronic anticoagulation and is currently rate controlled. The pt is to have labs done as appropriate to monitor medication levels and is to report if they start to feel as if their heart rate is becoming uncontrolled. . Hypertension - wel l controlled - continue with current medications, continue with no added salt diet. Pt has been encouraged to exercise daily. The pt has been advised to call the office if there are any acute concerns about change in blood pressure readings at home. Hyperlipidemia - pt has been counseled about appropriate diet, exercise, and need for low fat food choices. I have discussed the need for the patient to take medications as prescribed. If the patient has negative side effects from the medication, they are to CALL the office and not abruptly discontinue the medication without discussion with a practitioner in the office. We will check labs in 3-6 months for follow up on the patient's chronic medical problem and to assure normal liver response to medications. Samples of crestor given to patient today . Hypertension - unc ontrolled - the patient's medications have been modified as documented in the visit note. The patient has been counseled to cut back on salt in diet for a no added salt diet, low fat diet, start an exercise program with low weight bearing exercises and higher aerobic activity for heart health. . Fatigue, Snoring disorder, excessive daytime sleepiness - recommended that Don have a sleep study - he did not pass a sleep study done over 7 years ago - but never got a machine for the sleep apnea - it was around the time he had a bypass and "it got lost in the aftermath of his bypass". I have recommended and had staff make a referral for sleep study at the hospital. Diabetes Mellitus - controlled - per recent FSBS reports. I have recommended for the patient to have follow up labs prior to the next office visit. The patient has been instructed to continue with current medications as previously directed, continue with regular FSBS monitoring to assure continued control of diabetes. Pt to call for any acute concerns, complaints, or if the blood glucose readings are starting to become less controlled. . Obesity - chronic issue with this patient. The pt has been counseled about diet changes, calorie restriction, and need to exercise. Pt will RTC in one month for weight check. Diabetes Mellitus - controlled - per recent FSBS reports. I have recommended for the patient to have follow up labs prior to the next office visit. The patient has been instructed to continue with current medications as previously directed, continue with regular FSBS monitoring to assure continued control of diabetes. Pt to call for any acute concerns, complaints, or if the blood glucose readings are starting to become less controlled. I have recommended for the patient to follow more strictly to the diabetic diet as discussed in clinic to allow for greater blood glucose control. Increase activity level - increase aerobic exercise Hyperlipidemia - pt has been counseled about appropriate diet, exercise, and need for low fat food choices. I have discussed the need for the patient to take medications as prescribed. If the patient has negative side effects from the medication, they are to CALL the office and not abruptly discontinue the medication without discussion with a practicioner in the office. We will check labs in 3-6 months for follow up on the patient's chronic medical problem and to assure normal liver response to medications. Pt does not want to start on statin - I will allow for him to try more aggressive exercise - if he does not have improved HDL, then need to consider starting on a statin at least three times a week. He states that he has been counseled by me and Dr. Culver in the past that he needed to be on a statin, but is hesitant to do so as he had myalgias with previous statin use. Hypertension - well controlled - continue with current medications, continue with no added salt diet. Pt has been encouraged to exercise daily. The pt has been advised to call the office if there are any acute concerns about change in blood pressure readings at home. . Hospital follow up - This was a follow up appointment from the patient's hospitalization during which time Dr. Shetty formulated the assessment and plan for the follow up on this patient's medical condition. . Hypertension - wel l controlled - continue with current medications, continue with no added salt diet. Pt has been encouraged to exercise daily. The pt has been advised to call the office if there are any acute concerns about change in blood pressure readings at home. Hyperlipidemia - pt has been counseled about appropriate diet, exercise, and need for low fat food choices. I have discussed the need for the patient to take medications as prescribed. If the patient has negative side effects from the medication, they are to CALL the office and not abruptly discontinue the medication without discussion with a practitioner in the office. We will check labs in 3-6 months for follow up on the patient's chronic medical problem and to assure normal liver response to medications. Edema - pt has been advised to elevate legs to prevent dependent edema, compression has been recommended to help to naturally decrease peripheral edema. Diuretic use has been discussed and pt has been instructed in appropriate use of such medication as necessary to further attempt to reduce peripheral edema. Diabetes Mellitus - controlled - per recent FSBS reports. I have recommended for the patient to have follow up labs prior to the next office visit. The patient has been instructed to continue with current medications as previously directed, continue with regular FSBS monitoring to assure continued control of diabetes. Pt to call for any acute concerns, complaints, or if the blood glucose readings are starting to become less controlled. Comment . Edema - pt has bee n advised to elevate legs to prevent dependent edema. Diuretic use has been discussed and pt has been instructed in appropriate use of such medication as necessary to further attempt to reduce peripheral edema. On the days he takes diruetic (LASIX) drink an extra glass of orange juice. Hypertension - fairly well controlled - continue with current medications, continue with no added salt diet. Pt has been encouraged to exercise daily. The pt has been advised to call the office if there are any acute concerns about change in blood pressure readings at home. . Diabetes Mellitus - controlled - per recent FSBS reports. I have recommended for the patient to have follow up labs prior to the next office visit. The patient has been instructed to continue with current medications as previously directed, continue with regular FSBS monitoring to assure continued control of diabetes. Pt to call for any acute concerns, complaints, or if the blood glucose readings are starting to become less controlled. I have recommended for the patient to follow more strictly to the diabetic diet as discussed in clinic to allow for greater blood glucose control. Increase activity level - increase aerobic exercise Hyperlipidemia - pt has been counseled about appropriate diet, exercise, and need for low fat food choices. I have discussed the need for the patient to take medications as prescribed. If the patient has negative side effects from the medication, they are to CALL the office and not abruptly discontinue the medication without discussion with a practicioner in the office. We will check labs in 3-6 months for follow up on the patient's chronic medical problem and to assure normal liver response to medications. Pt does not want to start on statin - I will allow for him to try more aggressive exercise - if he does not have improved HDL, then need to consider starting on a statin at least three times a week. He states that he has been counseled by me and Dr. Culver in the past that he needed to be on a statin, but is hesitant to do so as he had myalgias with previous statin use. Hypertension - well controlled - continue with current medications, continue with no added salt diet. Pt has been encouraged to exercise daily. The pt has been advised to call the office if there are any acute concerns about change in blood pressure readings at home. . Bronchitis - acute case of bronchitis identified. Pt has been given antibiotics, breathing treatments as appropriate, and pt has been instructed to call if symptoms are not improved, or if symptoms acutely worsen. URI - Pt advised to increase fluids, vitamin C. Discussed natural and expected course of this diagnosis and need to alert me if symtpoms do not follow expected course, or if any worse. RX sent to patient's pharmacy. . ADMIT FROM CLINIC TO HOSPITAL - PT IS ACUTELY ILL, REQUIRES HOSPITALIZATION. THE PATIENT HAS BEEN EVALUATED IN CLINIC AND THIS STANDS THE HOSPITAL HISTORY AND PHYSICAL EXAMINATION. THE PATIENT HAS BEEN SENT TO THE HOSPITAL WITH WRITTEN ORDERS FOR TREATMENT AND EVALUATION OF THE ACUTE ILLNESS. Pt to be started on rocephin, iv fluids, and will check labs - chem panel, cbc, tsh. refill phenergan wit h codeine cough syrup call if cough does not resolve and we can call in an antbiotic prevnar 13 when you are feeling better . Medicare Exam - today we discussed the patients past history, immunizations, preventative exams/evaluations - colonoscopy, fecal occult blood testing, routine labs for renal function, glucose, cholesterol, osteoporosis evaluations, cardiovascular testing and cancer screenings. We have also discussed mental health and the signs/symptoms of depression. The patient was advised of home safety evaluations and the need to make sure that as the aging process continues, we need to be aware of different ways to make the home a safer place to reside. The patient has also been counseled that exercise is necessary - and of utmost importance as we age to help decrease fall risk and to maintain independence in the home. Today we discussed the need for the patient to create paperwork for Advanced directives as well as for the patient to provide this office with a copy of her DOPA paperwork for health care surrogate. Cough- improving -call if symptoms do not resolve . Hypertension - wel l controlled - continue with current medications, continue with no added salt diet. Pt has been encouraged to exercise daily. The pt has been advised to call the office if there are any acute concerns about change in blood pressure readings at home. Diabetes Mellitus - controlled - per recent FSBS reports. I have recommended for the patient to have follow up labs prior to the next office visit. The patient has been instructed to continue with current medications as previously directed, continue with regular FSBS monitoring to assure continued control of diabetes. Pt to call for any acute concerns, complaints, or if the blood glucose readings are starting to become less controlled. Esophageal Reflux - the patient has been counseled against excessive intake of caffiene, spicy foods, peppermint, and cinnamon - all of which can exacerbate esophageal reflux. The patient is to take medications as prescribed and call the office if the symptoms are not improving. Pt given rx for carafate, pt to call if not improved. . Hypertension - unc ontrolled - the patient's medications have been modified as documented in the visit note. The patient has been counseled to cut back on salt in diet for a no added salt diet, low fat diet, start an exercise program with low weight bearing exercises and higher aerobic activity for heart health. The patient is to check blood pressure readings as an outpatient and either fax, call, or email the readings to the office next week for practitioner to review. The pt is to call for acute concerns. Pt changed to clonidine patch - stop clonidine pills. Fatigue, Snoring disorder, excessive daytime sleepiness - recommended that Don have a sleep study - he did not pass a sleep study done over 7 years ago - but never got a machine for the sleep apnea - it was around the time he had a bypass and "it got lost in the aftermath of his bypass". I have recommended and had staff make a referral for sleep study at the hospital. Diabetes Mellitus - controlled - per recent FSBS reports. I have recommended for the patient to have follow up labs prior to the next office visit. The patient has been instructed to continue with current medications as previously directed, continue with regular FSBS monitoring to assure continued control of diabetes. Pt to call for any acute concerns, complaints, or if the blood glucose readings are starting to become less controlled. . Hypertension - wel l controlled - continue with current medications, continue with no added salt diet. Pt has been encouraged to exercise daily. The pt has been advised to call the office if there are any acute concerns about change in blood pressure readings at home. Back pain - improving - continue with current treatment - continue with physical therapy. DEXILANT 60MG DAILY SULCRAFATE BEFORE MEALS AND AT BEDTIME CALL IF YOUR SYMPTOMS ARE UNCONTROLLED . Esophageal Reflux - the patient has be en counseled against excessive intake of caffeine, spicy foods, peppermint, and cinnamon - all of which can exacerbate esophageal reflux. The patient is to take medications as prescribed and call the office if the symptoms are not improving. . Diabetes Mellitus - controlled - per recent FSBS reports. I have recommended for the patient to have follow up labs prior to the next office visit. The patient has been instructed to continue with current medications as previously directed, continue with regular FSBS monitoring to assure continued control of diabetes. Pt to call for any acute concerns, complaints, or if the blood glucose readings are starting to become less controlled. Left hip pain - I have recommended a referral to Dr. Salgado for injection bursa at iliac crest. Hypertension - well controlled - continue with current medications, continue with no added salt diet. Pt has been encouraged to exercise daily. The pt has been advised to call the office if there are any acute concerns about change in blood pressure readings at home. Thrush - rx for nystatin swish and swallow. get the dissolving b 12 tabs - and okay to take the b vitamins with biotin . Recurrent urinary tract infection - mo nitor symptoms - pt has had full treatment for infection and is to let us know if infection symptoms return. take a probiotic tati ly while taking the doxycycline . Hypertension - well controlled - louise nue with current medications, continue with no added salt diet. Pt has been encouraged to exercise daily. The pt has been advised to call the office if there are any acute concerns about change in blood pressure readings at home. Atrial Fibrillation - pt on chronic anticoagulation and is currently rate controlled. The pt is to have labs done as appropriate to monitor medication levels and is to report if they start to feel as if their heart rate is becoming uncontrolled. Tick Borne Illness - continue with doxycycline plans - twice daily x 2 weeks, then daily x 1 month then prn symptoms of tick born illness. . Hypertension - wel l controlled - continue with current medications, continue with no added salt diet. Pt has been encouraged to exercise daily. The pt has been advised to call the office if there are any acute concerns about change in blood pressure readings at home. Edema - bilateral lower legs - rx for lasix. . Right posterior fl ank/rib pain - need to ask Dr. Eros Worley if there is a specific test he would like to see done prior to an appt - question if nerve block would help his pain Hypertension - well controlled - continue with current medications, continue with no added salt diet. Pt has been encouraged to exercise daily. The pt has been advised to call the office if there are any acute concerns about change in blood pressure readings at home. . Hypertension - wel l controlled - continue with current medications, continue with no added salt diet. Pt has been encouraged to exercise daily. The pt has been advised to call the office if there are any acute concerns about change in blood pressure readings at home. Diabetes Mellitus - controlled - per recent FSBS reports. I have recommended for the patient to have follow up labs prior to the next office visit. The patient has been instructed to continue with current medications as previously directed, continue with regular FSBS monitoring to assure continued control of diabetes. Pt to call for any acute concerns, complaints, or if the blood glucose readings are starting to become less controlled. Abdominal/Flank pain - recommended pt to start stretching exercises for his flank/back pain - pt is not interested in physical therapy at this time. [facility] x[facility] at the [facility]. Bronchitis-cough - acute case of bronchitis identified. Pt has been given antibiotics, breathing treatments as appropriate, and pt has been instructed to call if symptoms are not improved, or if symptoms acutely worsen. sample of albuterol inhaler provided, demonstrated and instructed on use. Plan for chest xray today at the hospital. stop the pravastatin - . Hypertension - well controlled - louise nue with current medications, continue with no added salt diet. Pt has been encouraged to exercise daily. The pt has been advised to call the office if there are any acute concerns about change in blood pressure readings at home. Myalgias - stop pravastatin - continue with coenzyme q10. Monitor symptoms. Urinary frequency - check urinalysis. . Bradycardia - pt t o maintain current medication - I have recommended his to check his blood pressure and heart rate at 1 hour, 1.5 hour and 2 hour post intake of toprol. IF his heart rate is at or below 45, we need to consider decreasing his toprol to 25mg bid. Hypertension - well controlled - continue with current medications, continue with no added salt diet. Pt has been encouraged to exercise daily. The pt has been advised to call the office if there are any acute concerns about change in blood pressure readings at home. flu shot given in clinic today . Right hip pain -di scussed with Dr Salgado's office-okay for injection today -instructed patient to follow up with them if pain does not resolve-kenalog injection today in the office- recommend heat this evening - instructed patient to call if symptoms do not improve or if any worse. . Diabetes Mellitus - controlled - per recent FSBS reports. I have recommended for the patient to have follow up labs prior to the next office visit. The patient has been instructed to continue with current medications as previously directed, continue with regular FSBS monitoring to assure continued control of diabetes. Pt to call for any acute concerns, complaints, or if the blood glucose readings are starting to become less controlled. Hypertension - well controlled - continue with current medications, continue with no added salt diet. Pt has been encouraged to exercise daily. The pt has been advised to call the office if there are any acute concerns about change in blood pressure readings at home. . Hypertension - wel l controlled - continue with current medications, continue with no added salt diet. Pt has been encouraged to exercise daily. The pt has been advised to call the office if there are any acute concerns about change in blood pressure readings at home. Diabetes Mellitus - controlled - per recent FSBS reports. I have recommended for the patient to have follow up labs prior to the next office visit. The patient has been instructed to continue with current medications as previously directed, continue with regular FSBS monitoring to assure continued control of diabetes. Pt to call for any acute concerns, complaints, or if the blood glucose readings are starting to become less controlled. . Diabetes Mellitus - controlled - per recent FSBS reports. I have recommended for the patient to have follow up labs prior to the next office visit. The patient has been instructed to continue with current medications as previously directed, continue with regular FSBS monitoring to assure continued control of diabetes. Pt to call for any acute concerns, complaints, or if the blood glucose readings are starting to become less controlled. Biceps tendonitis - pt to do exercises as directed, antiinflammatories directed to be taken per RX instructions and pt to call if symptoms are not improved. . Hypertension - wel l controlled - continue with current medications, continue with no added salt diet. Pt has been encouraged to exercise daily. The pt has been advised to call the office if there are any acute concerns about change in blood pressure readings at home. Atrial Fibrillation - pt on chronic anticoagulation and is currently rate controlled. The pt is to have labs done as appropriate to monitor medication levels and is to report if they start to feel as if their heart rate is becoming uncontrolled. DM - FSBS fairly well controlled - continue current treatments - monitor symptoms. . Hypertension - wel l controlled - continue with current medications, continue with no added salt diet. Pt has been encouraged to exercise daily. The pt has been advised to call the office if there are any acute concerns about change in blood pressure readings at home. Hyperlipidemia - pt has been counseled about appropriate diet, exercise, and need for low fat food choices. I have discussed the need for the patient to take medications as prescribed. If the patient has negative side effects from the medication, they are to CALL the office and not abruptly discontinue the medication without discussion with a practitioner in the office. We will check labs in 3-6 months for follow up on the patient's chronic medical problem and to assure normal liver response to medications. Samples of crestor given to patient today Pt to increase the p epcid to twice daily Pt to keep appt with Dr. Bello on 06/25/13 @10:10AM. Esophageal Reflux - the patient has been counseled against excessive intake of caffiene, spicy foods, peppermint, and cinnamon - all of which can exacerbate esophageal reflux. The patient is to take medications as prescribed and call the office if the symptoms are not improving. Pt to increase the pepcid to twice daily Pt to keep appt with Dr. Bello on 06/25/13 @10:10AM . Hypertension - unc ontrolled - the patient's medications have been modified as documented in the visit note. The patient has been counseled to cut back on salt in diet for a no added salt diet, low fat diet, start an exercise program with low weight bearing exercises and higher aerobic activity for heart health. The patient is to check blood pressure readings as an outpatient and either fax, call, or email the readings to the office next week for practitioner to review. The pt is to call for acute concerns. Anemia - change iron to two days a week. Urge Incontinence - monitor symptoms - hold myrbetric x 1 week - report back to us about symptoms off f the myrbectric and he will follow up on his blood pressure that may be elevated due to his myrbetric I sent a prescriptio n for doxycycline 100mg twice daily to [facility]-start it this evening Call if you are not better or if any worse. . URI - Pt advised to increase fluids, vitamin C. Discussed natural and expected course of this diagnosis and need to alert me if symtpoms do not follow expected course, or if any worse. RX sent to patient's pharmacy. Allergies - Advised avoidance of allergens if possible, we discussed natural and expected course of this diagnosis and need to alert me if symtpoms do not follow expected course, or if any worse. Recommend claritin or zyrtec daily. PT TO INCREASE LOSAR WAGNER TO 100MG DAILY.. Diabetes Mellitus - controlled - per recent FSBS reports. I have recommended for the patient to have follow up labs prior to the next office visit. The patient has been instructed to continue with current medications as previously directed, continue with regular FSBS monitoring to assure continued control of diabetes. Pt to call for any acute concerns, complaints, or if the blood glucose readings are starting to become less controlled. Hypertension - uncontrolled - the patient's medications have been modified as documented in the visit note. The patient has been counseled to cut back on salt in diet for a no added salt diet, low fat diet, start an exercise program with low weight bearing exercises and higher aerobic activity for heart health. The patient is to check blood pressure readings as an outpatient and either fax, call, or email the readings to the office next week for practicioner to review. The pt is to call for acute concerns. PT TO INCREASE LOSARTAN TO 100MG DAILY. PT TO INCREASE EXERCISE - AEROBIC EXERCISE- TO HELP IMPROVE HDL AND DECREASE ABDOMINAL WEIGHT. . Hypertension - wel l controlled - continue with current medications, continue with no added salt diet. Pt has been encouraged to exercise daily. The pt has been advised to call the office if there are any acute concerns about change in blood pressure readings at home. Co-Enzyme Q 10 - or Co Q 10 - take daily - to help relieve shoulder pain. Increase antioxidants in diet (blue villegas, pomegranate). . In Grown toenail - sees Dr Mauricio next week, until then soak toe in Epson salt water at night and after put cotton under toenail to help relieve pressure. Reflux - Take protonix in the evening for 1 week see if symptoms resolve, if not increase to twice a day for 1 week, call office to let know if symptoms are improved or not. Co-Enzyme Q 10 - or Co Q 10 - take daily - to help relieve shoulder pain. Increase antioxidants in diet (blue villegas, pomegranate). . Diabetes Mellitus - controlled - per recent FSBS reports. I have recommended for the patient to have follow up labs prior to the next office visit. The patient has been instructed to continue with current medications as previously directed, continue with regular FSBS monitoring to assure continued control of diabetes. Pt to call for any acute concerns, complaints, or if the blood glucose readings are starting to become less controlled. Noflu shots available, recommend pt to go to [facility] for the shot. Kidney stone - keep appt with Dr. Hewitt for planned procedure for removal of kidney stone. . Chestwall pain - r ecommended use of topical antiinflammatory/topical aspercreme. HTN - not well controlled today - but pt has reports of good blood pressure control. DM- controlled per patient report. . Tic Bite - improvi ng - rx for blue goo TYLENOL 2 PILLS THRE E TIMES DAILY X 1 WEEK -TAKE WITH FOOD CHECK LABS LET ME KNOW IF YOUR JOINT PAIN DOES NOT IMPROVE CHECK LABS . Edema - pt has been advised to elevate legs to prevent dependent edema, compression has been recommended to help to naturally decrease peripheral edema. Diuretic use has been discussed and pt has been instructed in appropriate use of such medication as necessary to further attempt to reduce peripheral edema. Hypertension - well controlled - continue with current medications, continue with no added salt diet. Pt has been encouraged to exercise daily. The pt has been advised to call the office if there are any acute concerns about change in blood pressure readings at home. Joint pain -use tylenol as directed-check labs- call if pain does not resolve DM-check labs . URI - Pt advised t o increase fluids, vitamin C. Discussed natural and expected course of this diagnosis and need to alert me if symptoms do not follow expected course, or if any worse. RX sent to patient's pharmacy. change diltiazem fro m 180mg - new dose is 120mg - start this tomorrow. tonight - if heart rate is at or below 60, decrease the metoprolol to 50mg. new parameters if heart rate is at or below 55, decrease dose of metoprolol from 100mg down to 50mg. call if heart rate is above 100, or below 50. . Hypertension - well controlled - louise nue with current medications, continue with no added salt diet. Pt has been encouraged to exercise daily. The pt has been advised to call the office if there are any acute concerns about change in blood pressure readings at home. Atrial Fibrillation - pt on chronic anticoagulation and is currently rate controlled. The pt is to have labs done as appropriate to monitor medication levels and is to report if they start to feel as if their heart rate is becoming uncontrolled. change diltiazem from 180mg - new dose is 120mg - start this tomorrow. tonight - if heart rate is at or below 60, decrease the metoprolol to 50mg. new parameters if heart rate is at or below 55, decrease dose of metoprolol from 100mg down to 50mg. call if heart rate is above 100, or below 50. Fatigue - improved since stopping amiodarone . Hypertension - wel l controlled - continue with current medications, continue with no added salt diet. Pt has been encouraged to exercise daily. The pt has been advised to call the office if there are any acute concerns about change in blood pressure readings at home. Myalgias - improved - no change in current management go back to just one losartan daily hold the fenofibrate (generic tricor) . Hypertension - well controlled - louise nue with current medications, continue with no added salt diet. Pt has been encouraged to exercise daily. The pt has been advised to call the office if there are any acute concerns about change in blood pressure readings at home. Diabetes Mellitus - controlled - per recent FSBS reports. I have recommended for the patient to have follow up labs prior to the next office visit. The patient has been instructed to continue with current medications as previously directed, continue with regular FSBS monitoring to assure continued control of diabetes. Pt to call for any acute concerns, complaints, or if the blood glucose readings are starting to become less controlled. tiger balm - muscle rub . Hypertension - well controlled - louise nue with current medications, continue with no added salt diet. Pt has been encouraged to exercise daily. The pt has been advised to call the office if there are any acute concerns about change in blood pressure readings at home. Atrial Fibrillation - pt on chronic anticoagulation and is currently rate controlled. The pt is to have labs done as appropriate to monitor medication levels and is to report if they start to feel as if their heart rate is becoming uncontrolled. Back pain - recommended muscle rub . Hypertension - wel l controlled - continue with current medications, continue with no added salt diet. Pt has been encouraged to exercise daily. The pt has been advised to call the office if there are any acute concerns about change in blood pressure readings at home. Diabetes Mellitus - controlled - per recent FSBS reports. I have recommended for the patient to have follow up labs prior to the next office visit. The patient has been instructed to continue with current medications as previously directed, continue with regular FSBS monitoring to assure continued control of diabetes. Pt to call for any acute concerns, complaints, or if the blood glucose readings are starting to become less controlled. pt to keep on losartan bystolic and start on clonidine 0.1mg twice daily. . Hypertension - uncontrolled - the elvis ent's medications have been modified as documented in the visit note. The patient has been counseled to cut back on salt in diet for a no added salt diet, low fat diet, start an exercise program with low weight bearing exercises and higher aerobic activity for heart health. The patient is to check blood pressure readings as an outpatient and either fax, call, or email the readings to the office next week for practitioner to review. The pt is to call for acute concerns. pt to keep on losartan bystolic and start on clonidine 0.1mg twice daily. Diabetes Mellitus - controlled - per recent FSBS reports. I have recommended for the patient to have follow up labs prior to the next office visit. The patient has been instructed to continue with current medications as previously directed, continue with regular FSBS monitoring to assure continued control of diabetes. Pt to call for any acute concerns, complaints, or if the blood glucose readings are starting to become less controlled. . Continued fatigue, malaise post hospitalization - pt to expect some fatigue - however, will check chem panel, cbc since he had neutropenia in hospital and elevated creatinine and liver enzymes. Hypertension - not optimally controlled but pt to continue with current medications, continue with no added salt diet. Pt has been encouraged to exercise daily. The pt has been advised to call the office if there are any acute concerns about change in blood pressure readings at home. Diabetes Mellitus - controlled - per recent FSBS reports. I have recommended for the patient to have follow up labs prior to the next office visit. The patient has been instructed to continue with current medications as previously directed, continue with regular FSBS monitoring to assure continued control of diabetes. Pt to call for any acute concerns, complaints, or if the blood glucose readings are starting to become less controlled. . Hypertension - wel l controlled - continue with current medications, continue with no added salt diet. Pt has been encouraged to exercise daily. The pt has been advised to call the office if there are any acute concerns about change in blood pressure readings at home. Atrial Fibrillation - pt on chronic anticoagulation and is currently rate controlled. The pt is to have labs done as appropriate to monitor medication levels and is to report if they start to feel as if their heart rate is becoming uncontrolled. . Hypertension - unc ontrolled - the patient's medications have been modified as documented in the visit note. The patient has been counseled to cut back on salt in diet for a no added salt diet, low fat diet, start an exercise program with low weight bearing exercises and higher aerobic activity for heart health. . Fatigue, Snoring disorder, excessive daytime sleepiness - recommended that Don have a sleep study - he did not pass a sleep study done over 7 years ago - but never got a machine for the sleep apnea - it was around the time he had a bypass and "it got lost in the aftermath of his bypass". I have recommended and had staff make a referral for sleep study at the hospital. Diabetes Mellitus - controlled - per recent FSBS reports. I have recommended for the patient to have follow up labs prior to the next office visit. The patient has been instructed to continue with current medications as previously directed, continue with regular FSBS monitoring to assure continued control of diabetes. Pt to call for any acute concerns, complaints, or if the blood glucose readings are starting to become less controlled. . Obesity - chronic issue with this patient. The pt has been counseled about diet changes, calorie restriction, and need to exercise. Pt will RTC in one month for weight check. Diabetes Mellitus - controlled - per recent FSBS reports. I have recommended for the patient to have follow up labs prior to the next office visit. The patient has been instructed to continue with current medications as previously directed, continue with regular FSBS monitoring to assure continued control of diabetes. Pt to call for any acute concerns, complaints, or if the blood glucose readings are starting to become less controlled. I have recommended for the patient to follow more strictly to the diabetic diet as discussed in clinic to allow for greater blood glucose control. Increase activity level - increase aerobic exercise Hyperlipidemia - pt has been counseled about appropriate diet, exercise, and need for low fat food choices. I have discussed the need for the patient to take medications as prescribed. If the patient has negative side effects from the medication, they are to CALL the office and not abruptly discontinue the medication without discussion with a practicioner in the office. We will check labs in 3-6 months for follow up on the patient's chronic medical problem and to assure normal liver response to medications. Pt does not want to start on statin - I will allow for him to try more aggressive exercise - if he does not have improved HDL, then need to consider starting on a statin at least three times a week. He states that he has been counseled by me and Dr. Culver in the past that he needed to be on a statin, but is hesitant to do so as he had myalgias with previous statin use. Hypertension - well controlled - continue with current medications, continue with no added salt diet. Pt has been encouraged to exercise daily. The pt has been advised to call the office if there are any acute concerns about change in blood pressure readings at home. . Hospital follow up - This was a follow up appointment from the patient's hospitalization during which time Dr. Shetty formulated the assessment and plan for the follow up on this patient's medical condition. . Hypertension - wel l controlled - continue with current medications, continue with no added salt diet. Pt has been encouraged to exercise daily. The pt has been advised to call the office if there are any acute concerns about change in blood pressure readings at home. Hyperlipidemia - pt has been counseled about appropriate diet, exercise, and need for low fat food choices. I have discussed the need for the patient to take medications as prescribed. If the patient has negative side effects from the medication, they are to CALL the office and not abruptly discontinue the medication without discussion with a practitioner in the office. We will check labs in 3-6 months for follow up on the patient's chronic medical problem and to assure normal liver response to medications. Edema - pt has been advised to elevate legs to prevent dependent edema, compression has been recommended to help to naturally decrease peripheral edema. Diuretic use has been discussed and pt has been instructed in appropriate use of such medication as necessary to further attempt to reduce peripheral edema. Diabetes Mellitus - controlled - per recent FSBS reports. I have recommended for the patient to have follow up labs prior to the next office visit. The patient has been instructed to continue with current medications as previously directed, continue with regular FSBS monitoring to assure continued control of diabetes. Pt to call for any acute concerns, complaints, or if the blood glucose readings are starting to become less controlled. . Hypertension - wel l controlled - continue with current medications, continue with no added salt diet. Pt has been encouraged to exercise daily. The pt has been advised to call the office if there are any acute concerns about change in blood pressure readings at home. Diabetes Mellitus - controlled - per recent FSBS reports. I have recommended for the patient to have follow up labs prior to the next office visit. The patient has been instructed to continue with current medications as previously directed, continue with regular FSBS monitoring to assure continued control of diabetes. Pt to call for any acute concerns, complaints, or if the blood glucose readings are starting to become less controlled. Cough - recent dx of pneumonia - pt sent to hospital for xray. extension of antibiotics - doxycycline 100mg bid x 7 more days. Comment Pt to increase the p epcid to twice daily Pt to keep appt with Dr. Bello on 06/25/13 @10:10AM. Esophageal Reflux - the patient has been counseled against excessive intake of caffiene, spicy foods, peppermint, and cinnamon - all of which can exacerbate esophageal reflux. The patient is to take medications as prescribed and call the office if the symptoms are not improving. Pt to increase the pepcid to twice daily Pt to keep appt with Dr. Bello on 06/25/13 @10:10AM take a probiotic tati ly while taking the doxycycline . Hypertension - well controlled - louise nue with current medications, continue with no added salt diet. Pt has been encouraged to exercise daily. The pt has been advised to call the office if there are any acute concerns about change in blood pressure readings at home. Atrial Fibrillation - pt on chronic anticoagulation and is currently rate controlled. The pt is to have labs done as appropriate to monitor medication levels and is to report if they start to feel as if their heart rate is becoming uncontrolled. Tick Borne Illness - continue with doxycycline plans - twice daily x 2 weeks, then daily x 1 month then prn symptoms of tick born illness. . Hypertension - unc ontrolled - the patient's medications have been modified as documented in the visit note. The patient has been counseled to cut back on salt in diet for a no added salt diet, low fat diet, start an exercise program with low weight bearing exercises and higher aerobic activity for heart health. The patient is to check blood pressure readings as an outpatient and either fax, call, or email the readings to the office next week for practitioner to review. The pt is to call for acute concerns. Anemia - change iron to two days a week. Urge Incontinence - monitor symptoms - hold myrbetric x 1 week - report back to us about symptoms off f the myrbectric and he will follow up on his blood pressure that may be elevated due to his myrbetric . Edema - pt has bee n advised to elevate legs to prevent dependent edema. Diuretic use has been discussed and pt has been instructed in appropriate use of such medication as necessary to further attempt to reduce peripheral edema. On the days he takes diruetic (LASIX) drink an extra glass of orange juice. Hypertension - fairly well controlled - continue with current medications, continue with no added salt diet. Pt has been encouraged to exercise daily. The pt has been advised to call the office if there are any acute concerns about change in blood pressure readings at home. . Diabetes Mellitus - controlled - per recent FSBS reports. I have recommended for the patient to have follow up labs prior to the next office visit. The patient has been instructed to continue with current medications as previously directed, continue with regular FSBS monitoring to assure continued control of diabetes. Pt to call for any acute concerns, complaints, or if the blood glucose readings are starting to become less controlled. I have recommended for the patient to follow more strictly to the diabetic diet as discussed in clinic to allow for greater blood glucose control. Increase activity level - increase aerobic exercise Hyperlipidemia - pt has been counseled about appropriate diet, exercise, and need for low fat food choices. I have discussed the need for the patient to take medications as prescribed. If the patient has negative side effects from the medication, they are to CALL the office and not abruptly discontinue the medication without discussion with a practicioner in the office. We will check labs in 3-6 months for follow up on the patient's chronic medical problem and to assure normal liver response to medications. Pt does not want to start on statin - I will allow for him to try more aggressive exercise - if he does not have improved HDL, then need to consider starting on a statin at least three times a week. He states that he has been counseled by me and Dr. Culver in the past that he needed to be on a statin, but is hesitant to do so as he had myalgias with previous statin use. Hypertension - well controlled - continue with current medications, continue with no added salt diet. Pt has been encouraged to exercise daily. The pt has been advised to call the office if there are any acute concerns about change in blood pressure readings at home. Co-Enzyme Q 10 - or Co Q 10 - take daily - to help relieve shoulder pain. Increase antioxidants in diet (blue villegas, pomegranate). . In Grown toenail - sees Dr Mauricio next week, until then soak toe in Epson salt water at night and after put cotton under toenail to help relieve pressure. Reflux - Take protonix in the evening for 1 week see if symptoms resolve, if not increase to twice a day for 1 week, call office to let know if symptoms are improved or not. Co-Enzyme Q 10 - or Co Q 10 - take daily - to help relieve shoulder pain. Increase antioxidants in diet (blue villegas, pomegranate). . ADMIT FROM CLINIC TO HOSPITAL - PT IS ACUTELY ILL, REQUIRES HOSPITALIZATION. THE PATIENT HAS BEEN EVALUATED IN CLINIC AND THIS STANDS THE HOSPITAL HISTORY AND PHYSICAL EXAMINATION. THE PATIENT HAS BEEN SENT TO THE HOSPITAL WITH WRITTEN ORDERS FOR TREATMENT AND EVALUATION OF THE ACUTE ILLNESS. Pt to be started on rocephin, iv fluids, and will check labs - chem panel, cbc, tsh. refill phenergan wit h codeine cough syrup call if cough does not resolve and we can call in an antbiotic prevnar 13 when you are feeling better . Medicare Exam - today we discussed the patients past history, immunizations, preventative exams/evaluations - colonoscopy, fecal occult blood testing, routine labs for renal function, glucose, cholesterol, osteoporosis evaluations, cardiovascular testing and cancer screenings. We have also discussed mental health and the signs/symptoms of depression. The patient was advised of home safety evaluations and the need to make sure that as the aging process continues, we need to be aware of different ways to make the home a safer place to reside. The patient has also been counseled that exercise is necessary - and of utmost importance as we age to help decrease fall risk and to maintain independence in the home. Today we discussed the need for the patient to create paperwork for Advanced directives as well as for the patient to provide this office with a copy of her DOPA paperwork for health care surrogate. Cough- improving -call if symptoms do not resolve . Hypertension - wel l controlled - continue with current medications, continue with no added salt diet. Pt has been encouraged to exercise daily. The pt has been advised to call the office if there are any acute concerns about change in blood pressure readings at home. Diabetes Mellitus - controlled - per recent FSBS reports. I have recommended for the patient to have follow up labs prior to the next office visit. The patient has been instructed to continue with current medications as previously directed, continue with regular FSBS monitoring to assure continued control of diabetes. Pt to call for any acute concerns, complaints, or if the blood glucose readings are starting to become less controlled. Esophageal Reflux - the patient has been counseled against excessive intake of caffiene, spicy foods, peppermint, and cinnamon - all of which can exacerbate esophageal reflux. The patient is to take medications as prescribed and call the office if the symptoms are not improving. Pt given rx for carafate, pt to call if not improved. . Hypertension - unc ontrolled - the patient's medications have been modified as documented in the visit note. The patient has been counseled to cut back on salt in diet for a no added salt diet, low fat diet, start an exercise program with low weight bearing exercises and higher aerobic activity for heart health. The patient is to check blood pressure readings as an outpatient and either fax, call, or email the readings to the office next week for practitioner to review. The pt is to call for acute concerns. Pt changed to clonidine patch - stop clonidine pills. Fatigue, Snoring disorder, excessive daytime sleepiness - recommended that Don have a sleep study - he did not pass a sleep study done over 7 years ago - but never got a machine for the sleep apnea - it was around the time he had a bypass and "it got lost in the aftermath of his bypass". I have recommended and had staff make a referral for sleep study at the hospital. Diabetes Mellitus - controlled - per recent FSBS reports. I have recommended for the patient to have follow up labs prior to the next office visit. The patient has been instructed to continue with current medications as previously directed, continue with regular FSBS monitoring to assure continued control of diabetes. Pt to call for any acute concerns, complaints, or if the blood glucose readings are starting to become less controlled. . Hypertension - wel l controlled - continue with current medications, continue with no added salt diet. Pt has been encouraged to exercise daily. The pt has been advised to call the office if there are any acute concerns about change in blood pressure readings at home. Back pain - improving - continue with current treatment - continue with physical therapy. DEXILANT 60MG DAILY SULCRAFATE BEFORE MEALS AND AT BEDTIME CALL IF YOUR SYMPTOMS ARE UNCONTROLLED . Esophageal Reflux - the patient has be en counseled against excessive intake of caffeine, spicy foods, peppermint, and cinnamon - all of which can exacerbate esophageal reflux. The patient is to take medications as prescribed and call the office if the symptoms are not improving. . Diabetes Mellitus - controlled - per recent FSBS reports. I have recommended for the patient to have follow up labs prior to the next office visit. The patient has been instructed to continue with current medications as previously directed, continue with regular FSBS monitoring to assure continued control of diabetes. Pt to call for any acute concerns, complaints, or if the blood glucose readings are starting to become less controlled. Left hip pain - I have recommended a referral to Dr. Salgado for injection bursa at iliac crest. Hypertension - well controlled - continue with current medications, continue with no added salt diet. Pt has been encouraged to exercise daily. The pt has been advised to call the office if there are any acute concerns about change in blood pressure readings at home. Thrush - rx for nystatin swish and swallow. . Hypertension - wel l controlled - continue with current medications, continue with no added salt diet. Pt has been encouraged to exercise daily. The pt has been advised to call the office if there are any acute concerns about change in blood pressure readings at home. Diabetes Mellitus - controlled - per recent FSBS reports. I have recommended for the patient to have follow up labs prior to the next office visit. The patient has been instructed to continue with current medications as previously directed, continue with regular FSBS monitoring to assure continued control of diabetes. Pt to call for any acute concerns, complaints, or if the blood glucose readings are starting to become less controlled. Cough - recent dx of pneumonia - pt sent to hospital for xray. extension of antibiotics - doxycycline 100mg bid x 7 more days. . Right posterior fl ank/rib pain - need to ask Dr. Eros Worley if there is a specific test he would like to see done prior to an appt - question if nerve block would help his pain Hypertension - well controlled - continue with current medications, continue with no added salt diet. Pt has been encouraged to exercise daily. The pt has been advised to call the office if there are any acute concerns about change in blood pressure readings at home. tiger balm - muscle rub . Hypertension - well controlled - louise nue with current medications, continue with no added salt diet. Pt has been encouraged to exercise daily. The pt has been advised to call the office if there are any acute concerns about change in blood pressure readings at home. Atrial Fibrillation - pt on chronic anticoagulation and is currently rate controlled. The pt is to have labs done as appropriate to monitor medication levels and is to report if they start to feel as if their heart rate is becoming uncontrolled. Back pain - recommended muscle rub . Hypertension - wel l controlled - continue with current medications, continue with no added salt diet. Pt has been encouraged to exercise daily. The pt has been advised to call the office if there are any acute concerns about change in blood pressure readings at home. Diabetes Mellitus - controlled - per recent FSBS reports. I have recommended for the patient to have follow up labs prior to the next office visit. The patient has been instructed to continue with current medications as previously directed, continue with regular FSBS monitoring to assure continued control of diabetes. Pt to call for any acute concerns, complaints, or if the blood glucose readings are starting to become less controlled. Abdominal/Flank pain - recommended pt to start stretching exercises for his flank/back pain - pt is not interested in physical therapy at this time. . Hypertension - wel l controlled - continue with current medications, continue with no added salt diet. Pt has been encouraged to exercise daily. The pt has been advised to call the office if there are any acute concerns about change in blood pressure readings at home. Diabetes Mellitus - controlled - per recent FSBS reports. I have recommended for the patient to have follow up labs prior to the next office visit. The patient has been instructed to continue with current medications as previously directed, continue with regular FSBS monitoring to assure continued control of diabetes. Pt to call for any acute concerns, complaints, or if the blood glucose readings are starting to become less controlled. . Diabetes Mellitus - controlled - per recent FSBS reports. I have recommended for the patient to have follow up labs prior to the next office visit. The patient has been instructed to continue with current medications as previously directed, continue with regular FSBS monitoring to assure continued control of diabetes. Pt to call for any acute concerns, complaints, or if the blood glucose readings are starting to become less controlled. Biceps tendonitis - pt to do exercises as directed, antiinflammatories directed to be taken per RX instructions and pt to call if symptoms are not improved. . Hypertension - wel l controlled - continue with current medications, continue with no added salt diet. Pt has been encouraged to exercise daily. The pt has been advised to call the office if there are any acute concerns about change in blood pressure readings at home. Atrial Fibrillation - pt on chronic anticoagulation and is currently rate controlled. The pt is to have labs done as appropriate to monitor medication levels and is to report if they start to feel as if their heart rate is becoming uncontrolled. DM - FSBS fairly well controlled - continue current treatments - monitor symptoms. . Diabetes Mellitus - controlled - per recent FSBS reports. I have recommended for the patient to have follow up labs prior to the next office visit. The patient has been instructed to continue with current medications as previously directed, continue with regular FSBS monitoring to assure continued control of diabetes. Pt to call for any acute concerns, complaints, or if the blood glucose readings are starting to become less controlled. Hypertension - well controlled - continue with current medications, continue with no added salt diet. Pt has been encouraged to exercise daily. The pt has been advised to call the office if there are any acute concerns about change in blood pressure readings at home. . Hypertension - wel l controlled - continue with current medications, continue with no added salt diet. Pt has been encouraged to exercise daily. The pt has been advised to call the office if there are any acute concerns about change in blood pressure readings at home. Edema - bilateral lower legs - rx for lasix. . Hypertension - wel l controlled - continue with current medications, continue with no added salt diet. Pt has been encouraged to exercise daily. The pt has been advised to call the office if there are any acute concerns about change in blood pressure readings at home. Diabetes Mellitus - controlled - per recent FSBS reports. I have recommended for the patient to have follow up labs prior to the next office visit. The patient has been instructed to continue with current medications as previously directed, continue with regular FSBS monitoring to assure continued control of diabetes. Pt to call for any acute concerns, complaints, or if the blood glucose readings are starting to become less controlled. Sciatica- exercises discussed with the patient, pt to start on steroid at low dose. Pt is to call if the symptoms do not improve or if they worsen. Due to uncontrolled symptoms, I have recommended a referral to [facility] I sent a prescriptio n for doxycycline 100mg twice daily to [facility]-start it this evening Call if you are not better or if any worse. . URI - Pt advised to increase fluids, vitamin C. Discussed natural and expected course of this diagnosis and need to alert me if symtpoms do not follow expected course, or if any worse. RX sent to patient's pharmacy. Allergies - Advised avoidance of allergens if possible, we discussed natural and expected course of this diagnosis and need to alert me if symtpoms do not follow expected course, or if any worse. Recommend claritin or zyrtec daily. PT TO INCREASE LOSAR WAGNER TO 100MG DAILY.. Diabetes Mellitus - controlled - per recent FSBS reports. I have recommended for the patient to have follow up labs prior to the next office visit. The patient has been instructed to continue with current medications as previously directed, continue with regular FSBS monitoring to assure continued control of diabetes. Pt to call for any acute concerns, complaints, or if the blood glucose readings are starting to become less controlled. Hypertension - uncontrolled - the patient's medications have been modified as documented in the visit note. The patient has been counseled to cut back on salt in diet for a no added salt diet, low fat diet, start an exercise program with low weight bearing exercises and higher aerobic activity for heart health. The patient is to check blood pressure readings as an outpatient and either fax, call, or email the readings to the office next week for practicioner to review. The pt is to call for acute concerns. PT TO INCREASE LOSARTAN TO 100MG DAILY. PT TO INCREASE EXERCISE - AEROBIC EXERCISE- TO HELP IMPROVE HDL AND DECREASE ABDOMINAL WEIGHT. . Bronchitis - acute case of bronchitis identified. Pt has been given antibiotics, breathing treatments as appropriate, and pt has been instructed to call if symptoms are not improved, or if symptoms acutely worsen. URI - Pt advised to increase fluids, vitamin C. Discussed natural and expected course of this diagnosis and need to alert me if symtpoms do not follow expected course, or if any worse. RX sent to patient's pharmacy. . Hypertension - wel l controlled - continue with current medications, continue with no added salt diet. Pt has been encouraged to exercise daily. The pt has been advised to call the office if there are any acute concerns about change in blood pressure readings at home. . Chestwall pain - r ecommended use of topical antiinflammatory/topical aspercreme. HTN - not well controlled today - but pt has reports of good blood pressure control. DM- controlled per patient report. . Tic Bite - improvi ng - rx for blue goo . Obesity - chronic issue with this patient. The pt has been counseled about diet changes, calorie restriction, and need to exercise. Pt will RTC in one month for weight check. Diabetes Mellitus - controlled - per recent FSBS reports. I have recommended for the patient to have follow up labs prior to the next office visit. The patient has been instructed to continue with current medications as previously directed, continue with regular FSBS monitoring to assure continued control of diabetes. Pt to call for any acute concerns, complaints, or if the blood glucose readings are starting to become less controlled. I have recommended for the patient to follow more strictly to the diabetic diet as discussed in clinic to allow for greater blood glucose control. Increase activity level - increase aerobic exercise Hyperlipidemia - pt has been counseled about appropriate diet, exercise, and need for low fat food choices. I have discussed the need for the patient to take medications as prescribed. If the patient has negative side effects from the medication, they are to CALL the office and not abruptly discontinue the medication without discussion with a practicioner in the office. We will check labs in 3-6 months for follow up on the patient's chronic medical problem and to assure normal liver response to medications. Pt does not want to start on statin - I will allow for him to try more aggressive exercise - if he does not have improved HDL, then need to consider starting on a statin at least three times a week. He states that he has been counseled by me and Dr. Culver in the past that he needed to be on a statin, but is hesitant to do so as he had myalgias with previous statin use. Hypertension - well controlled - continue with current medications, continue with no added salt diet. Pt has been encouraged to exercise daily. The pt has been advised to call the office if there are any acute concerns about change in blood pressure readings at home. TYLENOL 2 PILLS THRE E TIMES DAILY X 1 WEEK -TAKE WITH FOOD CHECK LABS LET ME KNOW IF YOUR JOINT PAIN DOES NOT IMPROVE CHECK LABS . Edema - pt has been advised to elevate legs to prevent dependent edema, compression has been recommended to help to naturally decrease peripheral edema. Diuretic use has been discussed and pt has been instructed in appropriate use of such medication as necessary to further attempt to reduce peripheral edema. Hypertension - well controlled - continue with current medications, continue with no added salt diet. Pt has been encouraged to exercise daily. The pt has been advised to call the office if there are any acute concerns about change in blood pressure readings at home. Joint pain -use tylenol as directed-check labs- call if pain does not resolve DM-check labs . URI - Pt advised t o increase fluids, vitamin C. Discussed natural and expected course of this diagnosis and need to alert me if symptoms do not follow expected course, or if any worse. RX sent to patient's pharmacy. change diltiazem fro m 180mg - new dose is 120mg - start this tomorrow. tonight - if heart rate is at or below 60, decrease the metoprolol to 50mg. new parameters if heart rate is at or below 55, decrease dose of metoprolol from 100mg down to 50mg. call if heart rate is above 100, or below 50. . Hypertension - well controlled - louise nue with current medications, continue with no added salt diet. Pt has been encouraged to exercise daily. The pt has been advised to call the office if there are any acute concerns about change in blood pressure readings at home. Atrial Fibrillation - pt on chronic anticoagulation and is currently rate controlled. The pt is to have labs done as appropriate to monitor medication levels and is to report if they start to feel as if their heart rate is becoming uncontrolled. change diltiazem from 180mg - new dose is 120mg - start this tomorrow. tonight - if heart rate is at or below 60, decrease the metoprolol to 50mg. new parameters if heart rate is at or below 55, decrease dose of metoprolol from 100mg down to 50mg. call if heart rate is above 100, or below 50. Fatigue - improved since stopping amiodarone get the dissolving b 12 tabs - and okay to take the b vitamins with biotin . Recurrent urinary tract infection - mo nitor symptoms - pt has had full treatment for infection and is to let us know if infection symptoms return. . Hypertension - wel l controlled - continue with current medications, continue with no added salt diet. Pt has been encouraged to exercise daily. The pt has been advised to call the office if there are any acute concerns about change in blood pressure readings at home. Diabetes Mellitus - controlled - per recent FSBS reports. I have recommended for the patient to have follow up labs prior to the next office visit. The patient has been instructed to continue with current medications as previously directed, continue with regular FSBS monitoring to assure continued control of diabetes. Pt to call for any acute concerns, complaints, or if the blood glucose readings are starting to become less controlled. stop the pravastatin - . Hypertension - well controlled - louise nue with current medications, continue with no added salt diet. Pt has been encouraged to exercise daily. The pt has been advised to call the office if there are any acute concerns about change in blood pressure readings at home. Myalgias - stop pravastatin - continue with coenzyme q10. Monitor symptoms. Urinary frequency - check urinalysis. pt to keep on losartan bystolic and start on clonidine 0.1mg twice daily. . Hypertension - uncontrolled - the elvis ent's medications have been modified as documented in the visit note. The patient has been counseled to cut back on salt in diet for a no added salt diet, low fat diet, start an exercise program with low weight bearing exercises and higher aerobic activity for heart health. The patient is to check blood pressure readings as an outpatient and either fax, call, or email the readings to the office next week for practitioner to review. The pt is to call for acute concerns. pt to keep on losartan bystolic and start on clonidine 0.1mg twice daily. Diabetes Mellitus - controlled - per recent FSBS reports. I have recommended for the patient to have follow up labs prior to the next office visit. The patient has been instructed to continue with current medications as previously directed, continue with regular FSBS monitoring to assure continued control of diabetes. Pt to call for any acute concerns, complaints, or if the blood glucose readings are starting to become less controlled. . Bradycardia - pt t o maintain current medication - I have recommended his to check his blood pressure and heart rate at 1 hour, 1.5 hour and 2 hour post intake of toprol. IF his heart rate is at or below 45, we need to consider decreasing his toprol to 25mg bid. Hypertension - well controlled - continue with current medications, continue with no added salt diet. Pt has been encouraged to exercise daily. The pt has been advised to call the office if there are any acute concerns about change in blood pressure readings at home. flu shot given in clinic today . Right hip pain -di scussed with Dr Salgado's office-okay for injection today -instructed patient to follow up with them if pain does not resolve-kenalog injection today in the office- recommend heat this evening - instructed patient to call if symptoms do not improve or if any worse. . Continued fatigue, malaise post hospitalization - pt to expect some fatigue - however, will check chem panel, cbc since he had neutropenia in hospital and elevated creatinine and liver enzymes. Hypertension - not optimally controlled but pt to continue with current medications, continue with no added salt diet. Pt has been encouraged to exercise daily. The pt has been advised to call the office if there are any acute concerns about change in blood pressure readings at home. Diabetes Mellitus - controlled - per recent FSBS reports. I have recommended for the patient to have follow up labs prior to the next office visit. The patient has been instructed to continue with current medications as previously directed, continue with regular FSBS monitoring to assure continued control of diabetes. Pt to call for any acute concerns, complaints, or if the blood glucose readings are starting to become less controlled. . Hypertension - wel l controlled - continue with current medications, continue with no added salt diet. Pt has been encouraged to exercise daily. The pt has been advised to call the office if there are any acute concerns about change in blood pressure readings at home. Atrial Fibrillation - pt on chronic anticoagulation and is currently rate controlled. The pt is to have labs done as appropriate to monitor medication levels and is to report if they start to feel as if their heart rate is becoming uncontrolled. . Hypertension - wel l controlled - continue with current medications, continue with no added salt diet. Pt has been encouraged to exercise daily. The pt has been advised to call the office if there are any acute concerns about change in blood pressure readings at home. Hyperlipidemia - pt has been counseled about appropriate diet, exercise, and need for low fat food choices. I have discussed the need for the patient to take medications as prescribed. If the patient has negative side effects from the medication, they are to CALL the office and not abruptly discontinue the medication without discussion with a practitioner in the office. We will check labs in 3-6 months for follow up on the patient's chronic medical problem and to assure normal liver response to medications. Samples of crestor given to patient today . Hypertension - unc ontrolled - the patient's medications have been modified as documented in the visit note. The patient has been counseled to cut back on salt in diet for a no added salt diet, low fat diet, start an exercise program with low weight bearing exercises and higher aerobic activity for heart health. . Fatigue, Snoring disorder, excessive daytime sleepiness - recommended that Don have a sleep study - he did not pass a sleep study done over 7 years ago - but never got a machine for the sleep apnea - it was around the time he had a bypass and "it got lost in the aftermath of his bypass". I have recommended and had staff make a referral for sleep study at the hospital. Diabetes Mellitus - controlled - per recent FSBS reports. I have recommended for the patient to have follow up labs prior to the next office visit. The patient has been instructed to continue with current medications as previously directed, continue with regular FSBS monitoring to assure continued control of diabetes. Pt to call for any acute concerns, complaints, or if the blood glucose readings are starting to become less controlled. . Diabetes Mellitus - controlled - per recent FSBS reports. I have recommended for the patient to have follow up labs prior to the next office visit. The patient has been instructed to continue with current medications as previously directed, continue with regular FSBS monitoring to assure continued control of diabetes. Pt to call for any acute concerns, complaints, or if the blood glucose readings are starting to become less controlled. Noflu shots available, recommend pt to go to [facility] or [facility] for the shot. Kidney stone - keep appt with Dr. Hewitt for planned procedure for removal of kidney stone. . Hospital follow up - This was a follow up appointment from the patient's hospitalization during which time Dr. Shetty formulated the assessment and plan for the follow up on this patient's medical condition. . Hypertension - wel l controlled - continue with current medications, continue with no added salt diet. Pt has been encouraged to exercise daily. The pt has been advised to call the office if there are any acute concerns about change in blood pressure readings at home. Hyperlipidemia - pt has been counseled about appropriate diet, exercise, and need for low fat food choices. I have discussed the need for the patient to take medications as prescribed. If the patient has negative side effects from the medication, they are to CALL the office and not abruptly discontinue the medication without discussion with a practitioner in the office. We will check labs in 3-6 months for follow up on the patient's chronic medical problem and to assure normal liver response to medications. Edema - pt has been advised to elevate legs to prevent dependent edema, compression has been recommended to help to naturally decrease peripheral edema. Diuretic use has been discussed and pt has been instructed in appropriate use of such medication as necessary to further attempt to reduce peripheral edema. Diabetes Mellitus - controlled - per recent FSBS reports. I have recommended for the patient to have follow up labs prior to the next office visit. The patient has been instructed to continue with current medications as previously directed, continue with regular FSBS monitoring to assure continued control of diabetes. Pt to call for any acute concerns, complaints, or if the blood glucose readings are starting to become less controlled. go back to just one losartan daily hold the fenofibrate (generic tricor) . Hypertension - well controlled - louise nue with current medications, continue with no added salt diet. Pt has been encouraged to exercise daily. The pt has been advised to call the office if there are any acute concerns about change in blood pressure readings at home. Diabetes Mellitus - controlled - per recent FSBS reports. I have recommended for the patient to have follow up labs prior to the next office visit. The patient has been instructed to continue with current medications as previously directed, continue with regular FSBS monitoring to assure continued control of diabetes. Pt to call for any acute concerns, complaints, or if the blood glucose readings are starting to become less controlled. Chest xray at the [facility]. Bronchitis-cough - acute case of bronchitis identified. Pt has been given antibiotics, breathing treatments as appropriate, and pt has been instructed to call if symptoms are not improved, or if symptoms acutely worsen. sample of albuterol inhaler provided, demonstrated and instructed on use. Plan for chest xray today at the hospital. . Hypertension - wel l controlled - continue with current medications, continue with no added salt diet. Pt has been encouraged to exercise daily. The pt has been advised to call the office if there are any acute concerns about change in blood pressure readings at home. Myalgias - improved - no change in current management Comment Pt to increase the p epcid to twice daily Pt to keep appt with Dr. Bello on 06/25/13 @10:10AM. Esophageal Reflux - the patient has been counseled against excessive intake of caffiene, spicy foods, peppermint, and cinnamon - all of which can exacerbate esophageal reflux. The patient is to take medications as prescribed and call the office if the symptoms are not improving. Pt to increase the pepcid to twice daily Pt to keep appt with Dr. Bello on 06/25/13 @10:10AM . Hypertension - unc ontrolled - the patient's medications have been modified as documented in the visit note. The patient has been counseled to cut back on salt in diet for a no added salt diet, low fat diet, start an exercise program with low weight bearing exercises and higher aerobic activity for heart health. The patient is to check blood pressure readings as an outpatient and either fax, call, or email the readings to the office next week for practitioner to review. The pt is to call for acute concerns. Anemia - change iron to two days a week. Urge Incontinence - monitor symptoms - hold myrbetric x 1 week - report back to us about symptoms off f the myrbectric and he will follow up on his blood pressure that may be elevated due to his myrbetric . Edema - pt has bee n advised to elevate legs to prevent dependent edema. Diuretic use has been discussed and pt has been instructed in appropriate use of such medication as necessary to further attempt to reduce peripheral edema. On the days he takes diruetic (LASIX) drink an extra glass of orange juice. Hypertension - fairly well controlled - continue with current medications, continue with no added salt diet. Pt has been encouraged to exercise daily. The pt has been advised to call the office if there are any acute concerns about change in blood pressure readings at home. change diltiazem fro m 180mg - new dose is 120mg - start this tomorrow. tonight - if heart rate is at or below 60, decrease the metoprolol to 50mg. new parameters if heart rate is at or below 55, decrease dose of metoprolol from 100mg down to 50mg. call if heart rate is above 100, or below 50. . Hypertension - well controlled - louise nue with current medications, continue with no added salt diet. Pt has been encouraged to exercise daily. The pt has been advised to call the office if there are any acute concerns about change in blood pressure readings at home. Atrial Fibrillation - pt on chronic anticoagulation and is currently rate controlled. The pt is to have labs done as appropriate to monitor medication levels and is to report if they start to feel as if their heart rate is becoming uncontrolled. change diltiazem from 180mg - new dose is 120mg - start this tomorrow. tonight - if heart rate is at or below 60, decrease the metoprolol to 50mg. new parameters if heart rate is at or below 55, decrease dose of metoprolol from 100mg down to 50mg. call if heart rate is above 100, or below 50. Fatigue - improved since stopping amiodarone go back to just one losartan daily hold the fenofibrate (generic tricor) . Hypertension - well controlled - louise nue with current medications, continue with no added salt diet. Pt has been encouraged to exercise daily. The pt has been advised to call the office if there are any acute concerns about change in blood pressure readings at home. Diabetes Mellitus - controlled - per recent FSBS reports. I have recommended for the patient to have follow up labs prior to the next office visit. The patient has been instructed to continue with current medications as previously directed, continue with regular FSBS monitoring to assure continued control of diabetes. Pt to call for any acute concerns, complaints, or if the blood glucose readings are starting to become less controlled. . Diabetes Mellitus - controlled - per recent FSBS reports. I have recommended for the patient to have follow up labs prior to the next office visit. The patient has been instructed to continue with current medications as previously directed, continue with regular FSBS monitoring to assure continued control of diabetes. Pt to call for any acute concerns, complaints, or if the blood glucose readings are starting to become less controlled. I have recommended for the patient to follow more strictly to the diabetic diet as discussed in clinic to allow for greater blood glucose control. Increase activity level - increase aerobic exercise Hyperlipidemia - pt has been counseled about appropriate diet, exercise, and need for low fat food choices. I have discussed the need for the patient to take medications as prescribed. If the patient has negative side effects from the medication, they are to CALL the office and not abruptly discontinue the medication without discussion with a practicioner in the office. We will check labs in 3-6 months for follow up on the patient's chronic medical problem and to assure normal liver response to medications. Pt does not want to start on statin - I will allow for him to try more aggressive exercise - if he does not have improved HDL, then need to consider starting on a statin at least three times a week. He states that he has been counseled by me and Dr. Culver in the past that he needed to be on a statin, but is hesitant to do so as he had myalgias with previous statin use. Hypertension - well controlled - continue with current medications, continue with no added salt diet. Pt has been encouraged to exercise daily. The pt has been advised to call the office if there are any acute concerns about change in blood pressure readings at home. pt to keep on losartan bystolic and start on clonidine 0.1mg twice daily. . Hypertension - uncontrolled - the elvis ent's medications have been modified as documented in the visit note. The patient has been counseled to cut back on salt in diet for a no added salt diet, low fat diet, start an exercise program with low weight bearing exercises and higher aerobic activity for heart health. The patient is to check blood pressure readings as an outpatient and either fax, call, or email the readings to the office next week for practitioner to review. The pt is to call for acute concerns. pt to keep on losartan bystolic and start on clonidine 0.1mg twice daily. Diabetes Mellitus - controlled - per recent FSBS reports. I have recommended for the patient to have follow up labs prior to the next office visit. The patient has been instructed to continue with current medications as previously directed, continue with regular FSBS monitoring to assure continued control of diabetes. Pt to call for any acute concerns, complaints, or if the blood glucose readings are starting to become less controlled. . ADMIT FROM CLINIC TO HOSPITAL - PT IS ACUTELY ILL, REQUIRES HOSPITALIZATION. THE PATIENT HAS BEEN EVALUATED IN CLINIC AND THIS STANDS THE HOSPITAL HISTORY AND PHYSICAL EXAMINATION. THE PATIENT HAS BEEN SENT TO THE HOSPITAL WITH WRITTEN ORDERS FOR TREATMENT AND EVALUATION OF THE ACUTE ILLNESS. Pt to be started on rocephin, iv fluids, and will check labs - chem panel, cbc, tsh. . Hypertension - wel l controlled - continue with current medications, continue with no added salt diet. Pt has been encouraged to exercise daily. The pt has been advised to call the office if there are any acute concerns about change in blood pressure readings at home. Diabetes Mellitus - controlled - per recent FSBS reports. I have recommended for the patient to have follow up labs prior to the next office visit. The patient has been instructed to continue with current medications as previously directed, continue with regular FSBS monitoring to assure continued control of diabetes. Pt to call for any acute concerns, complaints, or if the blood glucose readings are starting to become less controlled. Esophageal Reflux - the patient has been counseled against excessive intake of caffiene, spicy foods, peppermint, and cinnamon - all of which can exacerbate esophageal reflux. The patient is to take medications as prescribed and call the office if the symptoms are not improving. Pt given rx for carafate, pt to call if not improved. . Hypertension - unc ontrolled - the patient's medications have been modified as documented in the visit note. The patient has been counseled to cut back on salt in diet for a no added salt diet, low fat diet, start an exercise program with low weight bearing exercises and higher aerobic activity for heart health. The patient is to check blood pressure readings as an outpatient and either fax, call, or email the readings to the office next week for practitioner to review. The pt is to call for acute concerns. Pt changed to clonidine patch - stop clonidine pills. Fatigue, Snoring disorder, excessive daytime sleepiness - recommended that Don have a sleep study - he did not pass a sleep study done over 7 years ago - but never got a machine for the sleep apnea - it was around the time he had a bypass and "it got lost in the aftermath of his bypass". I have recommended and had staff make a referral for sleep study at the hospital. Diabetes Mellitus - controlled - per recent FSBS reports. I have recommended for the patient to have follow up labs prior to the next office visit. The patient has been instructed to continue with current medications as previously directed, continue with regular FSBS monitoring to assure continued control of diabetes. Pt to call for any acute concerns, complaints, or if the blood glucose readings are starting to become less controlled. . Hypertension - wel l controlled - continue with current medications, continue with no added salt diet. Pt has been encouraged to exercise daily. The pt has been advised to call the office if there are any acute concerns about change in blood pressure readings at home. Back pain - improving - continue with current treatment - continue with physical therapy. . Hypertension - wel l controlled - continue with current medications, continue with no added salt diet. Pt has been encouraged to exercise daily. The pt has been advised to call the office if there are any acute concerns about change in blood pressure readings at home. Atrial Fibrillation - pt on chronic anticoagulation and is currently rate controlled. The pt is to have labs done as appropriate to monitor medication levels and is to report if they start to feel as if their heart rate is becoming uncontrolled. . Obesity - chronic issue with this patient. The pt has been counseled about diet changes, calorie restriction, and need to exercise. Pt will RTC in one month for weight check. Diabetes Mellitus - controlled - per recent FSBS reports. I have recommended for the patient to have follow up labs prior to the next office visit. The patient has been instructed to continue with current medications as previously directed, continue with regular FSBS monitoring to assure continued control of diabetes. Pt to call for any acute concerns, complaints, or if the blood glucose readings are starting to become less controlled. I have recommended for the patient to follow more strictly to the diabetic diet as discussed in clinic to allow for greater blood glucose control. Increase activity level - increase aerobic exercise Hyperlipidemia - pt has been counseled about appropriate diet, exercise, and need for low fat food choices. I have discussed the need for the patient to take medications as prescribed. If the patient has negative side effects from the medication, they are to CALL the office and not abruptly discontinue the medication without discussion with a practicioner in the office. We will check labs in 3-6 months for follow up on the patient's chronic medical problem and to assure normal liver response to medications. Pt does not want to start on statin - I will allow for him to try more aggressive exercise - if he does not have improved HDL, then need to consider starting on a statin at least three times a week. He states that he has been counseled by me and Dr. Culver in the past that he needed to be on a statin, but is hesitant to do so as he had myalgias with previous statin use. Hypertension - well controlled - continue with current medications, continue with no added salt diet. Pt has been encouraged to exercise daily. The pt has been advised to call the office if there are any acute concerns about change in blood pressure readings at home. . Tic Bite - improvi ng - rx for blue goo . Chestwall pain - r ecommended use of topical antiinflammatory/topical aspercreme. HTN - not well controlled today - but pt has reports of good blood pressure control. DM- controlled per patient report. . Diabetes Mellitus - controlled - per recent FSBS reports. I have recommended for the patient to have follow up labs prior to the next office visit. The patient has been instructed to continue with current medications as previously directed, continue with regular FSBS monitoring to assure continued control of diabetes. Pt to call for any acute concerns, complaints, or if the blood glucose readings are starting to become less controlled. Noflu shots available, recommend pt to go to [facility] or [facility] for the shot. Kidney stone - keep appt with Dr. Hewitt for planned procedure for removal of kidney stone. Co-Enzyme Q 10 - or Co Q 10 - take daily - to help relieve shoulder pain. Increase antioxidants in diet (blue villegas, pomegranate). . In Grown toenail - sees Dr Mauricio next week, until then soak toe in Epson salt water at night and after put cotton under toenail to help relieve pressure. Reflux - Take protonix in the evening for 1 week see if symptoms resolve, if not increase to twice a day for 1 week, call office to let know if symptoms are improved or not. Co-Enzyme Q 10 - or Co Q 10 - take daily - to help relieve shoulder pain. Increase antioxidants in diet (blue villegas, pomegranate). . Bronchitis - acute case of bronchitis identified. Pt has been given antibiotics, breathing treatments as appropriate, and pt has been instructed to call if symptoms are not improved, or if symptoms acutely worsen. URI - Pt advised to increase fluids, vitamin C. Discussed natural and expected course of this diagnosis and need to alert me if symtpoms do not follow expected course, or if any worse. RX sent to patient's pharmacy. PT TO INCREASE LOSAR WAGNER TO 100MG DAILY.. Diabetes Mellitus - controlled - per recent FSBS reports. I have recommended for the patient to have follow up labs prior to the next office visit. The patient has been instructed to continue with current medications as previously directed, continue with regular FSBS monitoring to assure continued control of diabetes. Pt to call for any acute concerns, complaints, or if the blood glucose readings are starting to become less controlled. Hypertension - uncontrolled - the patient's medications have been modified as documented in the visit note. The patient has been counseled to cut back on salt in diet for a no added salt diet, low fat diet, start an exercise program with low weight bearing exercises and higher aerobic activity for heart health. The patient is to check blood pressure readings as an outpatient and either fax, call, or email the readings to the office next week for practicioner to review. The pt is to call for acute concerns. PT TO INCREASE LOSARTAN TO 100MG DAILY. PT TO INCREASE EXERCISE - AEROBIC EXERCISE- TO HELP IMPROVE HDL AND DECREASE ABDOMINAL WEIGHT. I sent a prescriptio n for doxycycline 100mg twice daily to [facility]-start it this evening Call if you are not better or if any worse. . URI - Pt advised to increase fluids, vitamin C. Discussed natural and expected course of this diagnosis and need to alert me if symtpoms do not follow expected course, or if any worse. RX sent to patient's pharmacy. Allergies - Advised avoidance of allergens if possible, we discussed natural and expected course of this diagnosis and need to alert me if symtpoms do not follow expected course, or if any worse. Recommend claritin or zyrtec daily. . Hypertension - wel l controlled - continue with current medications, continue with no added salt diet. Pt has been encouraged to exercise daily. The pt has been advised to call the office if there are any acute concerns about change in blood pressure readings at home. Edema - bilateral lower legs - rx for lasix. . Right posterior fl ank/rib pain - need to ask Dr. Eros Worley if there is a specific test he would like to see done prior to an appt - question if nerve block would help his pain Hypertension - well controlled - continue with current medications, continue with no added salt diet. Pt has been encouraged to exercise daily. The pt has been advised to call the office if there are any acute concerns about change in blood pressure readings at home. . Hypertension - wel l controlled - continue with current medications, continue with no added salt diet. Pt has been encouraged to exercise daily. The pt has been advised to call the office if there are any acute concerns about change in blood pressure readings at home. Diabetes Mellitus - controlled - per recent FSBS reports. I have recommended for the patient to have follow up labs prior to the next office visit. The patient has been instructed to continue with current medications as previously directed, continue with regular FSBS monitoring to assure continued control of diabetes. Pt to call for any acute concerns, complaints, or if the blood glucose readings are starting to become less controlled. Abdominal/Flank pain - recommended pt to start stretching exercises for his flank/back pain - pt is not interested in physical therapy at this time. . Diabetes Mellitus - controlled - per recent FSBS reports. I have recommended for the patient to have follow up labs prior to the next office visit. The patient has been instructed to continue with current medications as previously directed, continue with regular FSBS monitoring to assure continued control of diabetes. Pt to call for any acute concerns, complaints, or if the blood glucose readings are starting to become less controlled. Biceps tendonitis - pt to do exercises as directed, antiinflammatories directed to be taken per RX instructions and pt to call if symptoms are not improved. . Hypertension - wel l controlled - continue with current medications, continue with no added salt diet. Pt has been encouraged to exercise daily. The pt has been advised to call the office if there are any acute concerns about change in blood pressure readings at home. Atrial Fibrillation - pt on chronic anticoagulation and is currently rate controlled. The pt is to have labs done as appropriate to monitor medication levels and is to report if they start to feel as if their heart rate is becoming uncontrolled. DM - FSBS fairly well controlled - continue current treatments - monitor symptoms. . URI - Pt advised t o increase fluids, vitamin C. Discussed natural and expected course of this diagnosis and need to alert me if symptoms do not follow expected course, or if any worse. RX sent to patient's pharmacy. tiger balm - muscle rub . Hypertension - well controlled - louise nue with current medications, continue with no added salt diet. Pt has been encouraged to exercise daily. The pt has been advised to call the office if there are any acute concerns about change in blood pressure readings at home. Atrial Fibrillation - pt on chronic anticoagulation and is currently rate controlled. The pt is to have labs done as appropriate to monitor medication levels and is to report if they start to feel as if their heart rate is becoming uncontrolled. Back pain - recommended muscle rub . Hypertension - wel l controlled - continue with current medications, continue with no added salt diet. Pt has been encouraged to exercise daily. The pt has been advised to call the office if there are any acute concerns about change in blood pressure readings at home. Diabetes Mellitus - controlled - per recent FSBS reports. I have recommended for the patient to have follow up labs prior to the next office visit. The patient has been instructed to continue with current medications as previously directed, continue with regular FSBS monitoring to assure continued control of diabetes. Pt to call for any acute concerns, complaints, or if the blood glucose readings are starting to become less controlled. Chest xray at the [facility]. Bronchitis-cough - acute case of bronchitis identified. Pt has been given antibiotics, breathing treatments as appropriate, and pt has been instructed to call if symptoms are not improved, or if symptoms acutely worsen. sample of albuterol inhaler provided, demonstrated and instructed on use. Plan for chest xray today at the hospital. . Continued fatigue, malaise post hospitalization - pt to expect some fatigue - however, will check chem panel, cbc since he had neutropenia in hospital and elevated creatinine and liver enzymes. Hypertension - not optimally controlled but pt to continue with current medications, continue with no added salt diet. Pt has been encouraged to exercise daily. The pt has been advised to call the office if there are any acute concerns about change in blood pressure readings at home. Diabetes Mellitus - controlled - per recent FSBS reports. I have recommended for the patient to have follow up labs prior to the next office visit. The patient has been instructed to continue with current medications as previously directed, continue with regular FSBS monitoring to assure continued control of diabetes. Pt to call for any acute concerns, complaints, or if the blood glucose readings are starting to become less controlled. . Hypertension - wel l controlled - continue with current medications, continue with no added salt diet. Pt has been encouraged to exercise daily. The pt has been advised to call the office if there are any acute concerns about change in blood pressure readings at home. Hyperlipidemia - pt has been counseled about appropriate diet, exercise, and need for low fat food choices. I have discussed the need for the patient to take medications as prescribed. If the patient has negative side effects from the medication, they are to CALL the office and not abruptly discontinue the medication without discussion with a practitioner in the office. We will check labs in 3-6 months for follow up on the patient's chronic medical problem and to assure normal liver response to medications. Samples of crestor given to patient today . Hypertension - wel l controlled - continue with current medications, continue with no added salt diet. Pt has been encouraged to exercise daily. The pt has been advised to call the office if there are any acute concerns about change in blood pressure readings at home. Hyperlipidemia - pt has been counseled about appropriate diet, exercise, and need for low fat food choices. I have discussed the need for the patient to take medications as prescribed. If the patient has negative side effects from the medication, they are to CALL the office and not abruptly discontinue the medication without discussion with a practitioner in the office. We will check labs in 3-6 months for follow up on the patient's chronic medical problem and to assure normal liver response to medications. Edema - pt has been advised to elevate legs to prevent dependent edema, compression has been recommended to help to naturally decrease peripheral edema. Diuretic use has been discussed and pt has been instructed in appropriate use of such medication as necessary to further attempt to reduce peripheral edema. Diabetes Mellitus - controlled - per recent FSBS reports. I have recommended for the patient to have follow up labs prior to the next office visit. The patient has been instructed to continue with current medications as previously directed, continue with regular FSBS monitoring to assure continued control of diabetes. Pt to call for any acute concerns, complaints, or if the blood glucose readings are starting to become less controlled. . Hypertension - unc ontrolled - the patient's medications have been modified as documented in the visit note. The patient has been counseled to cut back on salt in diet for a no added salt diet, low fat diet, start an exercise program with low weight bearing exercises and higher aerobic activity for heart health. . Fatigue, Snoring disorder, excessive daytime sleepiness - recommended that Don have a sleep study - he did not pass a sleep study done over 7 years ago - but never got a machine for the sleep apnea - it was around the time he had a bypass and "it got lost in the aftermath of his bypass". I have recommended and had staff make a referral for sleep study at the hospital. Diabetes Mellitus - controlled - per recent FSBS reports. I have recommended for the patient to have follow up labs prior to the next office visit. The patient has been instructed to continue with current medications as previously directed, continue with regular FSBS monitoring to assure continued control of diabetes. Pt to call for any acute concerns, complaints, or if the blood glucose readings are starting to become less controlled. Comment . Hypertension - wel l controlled - continue with current medications, continue with no added salt diet. Pt has been encouraged to exercise daily. The pt has been advised to call the office if there are any acute concerns about change in blood pressure readings at home. Back pain - improving - continue with current treatment - continue with physical therapy. . Edema - pt has bee n advised to elevate legs to prevent dependent edema. Diuretic use has been discussed and pt has been instructed in appropriate use of such medication as necessary to further attempt to reduce peripheral edema. On the days he takes diruetic (LASIX) drink an extra glass of orange juice. Hypertension - fairly well controlled - continue with current medications, continue with no added salt diet. Pt has been encouraged to exercise daily. The pt has been advised to call the office if there are any acute concerns about change in blood pressure readings at home. . Hypertension - wel l controlled - continue with current medications, continue with no added salt diet. Pt has been encouraged to exercise daily. The pt has been advised to call the office if there are any acute concerns about change in blood pressure readings at home. Atrial Fibrillation - pt on chronic anticoagulation and is currently rate controlled. The pt is to have labs done as appropriate to monitor medication levels and is to report if they start to feel as if their heart rate is becoming uncontrolled. DM - FSBS fairly well controlled - continue current treatments - monitor symptoms. PT TO INCREASE LOSAR WAGNER TO 100MG DAILY.. Diabetes Mellitus - controlled - per recent FSBS reports. I have recommended for the patient to have follow up labs prior to the next office visit. The patient has been instructed to continue with current medications as previously directed, continue with regular FSBS monitoring to assure continued control of diabetes. Pt to call for any acute concerns, complaints, or if the blood glucose readings are starting to become less controlled. Hypertension - uncontrolled - the patient's medications have been modified as documented in the visit note. The patient has been counseled to cut back on salt in diet for a no added salt diet, low fat diet, start an exercise program with low weight bearing exercises and higher aerobic activity for heart health. The patient is to check blood pressure readings as an outpatient and either fax, call, or email the readings to the office next week for practicioner to review. The pt is to call for acute concerns. PT TO INCREASE LOSARTAN TO 100MG DAILY. PT TO INCREASE EXERCISE - AEROBIC EXERCISE- TO HELP IMPROVE HDL AND DECREASE ABDOMINAL WEIGHT. . Chestwall pain - r ecommended use of topical antiinflammatory/topical aspercreme. HTN - not well controlled today - but pt has reports of good blood pressure control. DM- controlled per patient report. . Hypertension - unc ontrolled - the patient's medications have been modified as documented in the visit note. The patient has been counseled to cut back on salt in diet for a no added salt diet, low fat diet, start an exercise program with low weight bearing exercises and higher aerobic activity for heart health. The patient is to check blood pressure readings as an outpatient and either fax, call, or email the readings to the office next week for practitioner to review. The pt is to call for acute concerns. Anemia - change iron to two days a week. Urge Incontinence - monitor symptoms - hold myrbetric x 1 week - report back to us about symptoms off f the myrbectric and he will follow up on his blood pressure that may be elevated due to his myrbetric . Diabetes Mellitus - controlled - per recent FSBS reports. I have recommended for the patient to have follow up labs prior to the next office visit. The patient has been instructed to continue with current medications as previously directed, continue with regular FSBS monitoring to assure continued control of diabetes. Pt to call for any acute concerns, complaints, or if the blood glucose readings are starting to become less controlled. I have recommended for the patient to follow more strictly to the diabetic diet as discussed in clinic to allow for greater blood glucose control. Increase activity level - increase aerobic exercise Hyperlipidemia - pt has been counseled about appropriate diet, exercise, and need for low fat food choices. I have discussed the need for the patient to take medications as prescribed. If the patient has negative side effects from the medication, they are to CALL the office and not abruptly discontinue the medication without discussion with a practicioner in the office. We will check labs in 3-6 months for follow up on the patient's chronic medical problem and to assure normal liver response to medications. Pt does not want to start on statin - I will allow for him to try more aggressive exercise - if he does not have improved HDL, then need to consider starting on a statin at least three times a week. He states that he has been counseled by me and Dr. Culver in the past that he needed to be on a statin, but is hesitant to do so as he had myalgias with previous statin use. Hypertension - well controlled - continue with current medications, continue with no added salt diet. Pt has been encouraged to exercise daily. The pt has been advised to call the office if there are any acute concerns about change in blood pressure readings at home. . Hypertension - wel l controlled - continue with current medications, continue with no added salt diet. Pt has been encouraged to exercise daily. The pt has been advised to call the office if there are any acute concerns about change in blood pressure readings at home. Diabetes Mellitus - controlled - per recent FSBS reports. I have recommended for the patient to have follow up labs prior to the next office visit. The patient has been instructed to continue with current medications as previously directed, continue with regular FSBS monitoring to assure continued control of diabetes. Pt to call for any acute concerns, complaints, or if the blood glucose readings are starting to become less controlled. . ADMIT FROM CLINIC TO HOSPITAL - PT IS ACUTELY ILL, REQUIRES HOSPITALIZATION. THE PATIENT HAS BEEN EVALUATED IN CLINIC AND THIS STANDS THE HOSPITAL HISTORY AND PHYSICAL EXAMINATION. THE PATIENT HAS BEEN SENT TO THE HOSPITAL WITH WRITTEN ORDERS FOR TREATMENT AND EVALUATION OF THE ACUTE ILLNESS. Pt to be started on rocephin, iv fluids, and will check labs - chem panel, cbc, tsh. . Hypertension - unc ontrolled - the patient's medications have been modified as documented in the visit note. The patient has been counseled to cut back on salt in diet for a no added salt diet, low fat diet, start an exercise program with low weight bearing exercises and higher aerobic activity for heart health. The patient is to check blood pressure readings as an outpatient and either fax, call, or email the readings to the office next week for practitioner to review. The pt is to call for acute concerns. Pt changed to clonidine patch - stop clonidine pills. Fatigue, Snoring disorder, excessive daytime sleepiness - recommended that Don have a sleep study - he did not pass a sleep study done over 7 years ago - but never got a machine for the sleep apnea - it was around the time he had a bypass and "it got lost in the aftermath of his bypass". I have recommended and had staff make a referral for sleep study at the hospital. Diabetes Mellitus - controlled - per recent FSBS reports. I have recommended for the patient to have follow up labs prior to the next office visit. The patient has been instructed to continue with current medications as previously directed, continue with regular FSBS monitoring to assure continued control of diabetes. Pt to call for any acute concerns, complaints, or if the blood glucose readings are starting to become less controlled. change diltiazem fro m 180mg - new dose is 120mg - start this tomorrow. tonight - if heart rate is at or below 60, decrease the metoprolol to 50mg. new parameters if heart rate is at or below 55, decrease dose of metoprolol from 100mg down to 50mg. call if heart rate is above 100, or below 50. . Hypertension - well controlled - louise nue with current medications, continue with no added salt diet. Pt has been encouraged to exercise daily. The pt has been advised to call the office if there are any acute concerns about change in blood pressure readings at home. Atrial Fibrillation - pt on chronic anticoagulation and is currently rate controlled. The pt is to have labs done as appropriate to monitor medication levels and is to report if they start to feel as if their heart rate is becoming uncontrolled. change diltiazem from 180mg - new dose is 120mg - start this tomorrow. tonight - if heart rate is at or below 60, decrease the metoprolol to 50mg. new parameters if heart rate is at or below 55, decrease dose of metoprolol from 100mg down to 50mg. call if heart rate is above 100, or below 50. Fatigue - improved since stopping amiodarone . URI - Pt advised t o increase fluids, vitamin C. Discussed natural and expected course of this diagnosis and need to alert me if symptoms do not follow expected course, or if any worse. RX sent to patient's pharmacy. . Tic Bite - improvi ng - rx for blue goo . Diabetes Mellitus - controlled - per recent FSBS reports. I have recommended for the patient to have follow up labs prior to the next office visit. The patient has been instructed to continue with current medications as previously directed, continue with regular FSBS monitoring to assure continued control of diabetes. Pt to call for any acute concerns, complaints, or if the blood glucose readings are starting to become less controlled. Noflu shots available, recommend pt to go to [facility] or [facility] for the shot. Kidney stone - keep appt with Dr. Hewitt for planned procedure for removal of kidney stone. Co-Enzyme Q 10 - or Co Q 10 - take daily - to help relieve shoulder pain. Increase antioxidants in diet (blue villegas, pomegranate). . In Grown toenail - sees Dr Mauricio next week, until then soak toe in Epson salt water at night and after put cotton under toenail to help relieve pressure. Reflux - Take protonix in the evening for 1 week see if symptoms resolve, if not increase to twice a day for 1 week, call office to let know if symptoms are improved or not. Co-Enzyme Q 10 - or Co Q 10 - take daily - to help relieve shoulder pain. Increase antioxidants in diet (blue villegas, pomegranate). . Bronchitis - acute case of bronchitis identified. Pt has been given antibiotics, breathing treatments as appropriate, and pt has been instructed to call if symptoms are not improved, or if symptoms acutely worsen. URI - Pt advised to increase fluids, vitamin C. Discussed natural and expected course of this diagnosis and need to alert me if symtpoms do not follow expected course, or if any worse. RX sent to patient's pharmacy. . Right posterior fl ank/rib pain - need to ask Dr. Eros Worley if there is a specific test he would like to see done prior to an appt - question if nerve block would help his pain Hypertension - well controlled - continue with current medications, continue with no added salt diet. Pt has been encouraged to exercise daily. The pt has been advised to call the office if there are any acute concerns about change in blood pressure readings at home. . Diabetes Mellitus - controlled - per recent FSBS reports. I have recommended for the patient to have follow up labs prior to the next office visit. The patient has been instructed to continue with current medications as previously directed, continue with regular FSBS monitoring to assure continued control of diabetes. Pt to call for any acute concerns, complaints, or if the blood glucose readings are starting to become less controlled. Biceps tendonitis - pt to do exercises as directed, antiinflammatories directed to be taken per RX instructions and pt to call if symptoms are not improved. Pt to increase the p epcid to twice daily Pt to keep appt with Dr. Bello on 06/25/13 @10:10AM. Esophageal Reflux - the patient has been counseled against excessive intake of caffiene, spicy foods, peppermint, and cinnamon - all of which can exacerbate esophageal reflux. The patient is to take medications as prescribed and call the office if the symptoms are not improving. Pt to increase the pepcid to twice daily Pt to keep appt with Dr. Bello on 06/25/13 @10:10AM . Hypertension - wel l controlled - continue with current medications, continue with no added salt diet. Pt has been encouraged to exercise daily. The pt has been advised to call the office if there are any acute concerns about change in blood pressure readings at home. Diabetes Mellitus - controlled - per recent FSBS reports. I have recommended for the patient to have follow up labs prior to the next office visit. The patient has been instructed to continue with current medications as previously directed, continue with regular FSBS monitoring to assure continued control of diabetes. Pt to call for any acute concerns, complaints, or if the blood glucose readings are starting to become less controlled. Esophageal Reflux - the patient has been counseled against excessive intake of caffiene, spicy foods, peppermint, and cinnamon - all of which can exacerbate esophageal reflux. The patient is to take medications as prescribed and call the office if the symptoms are not improving. Pt given rx for carafate, pt to call if not improved. . Hypertension - wel l controlled - continue with current medications, continue with no added salt diet. Pt has been encouraged to exercise daily. The pt has been advised to call the office if there are any acute concerns about change in blood pressure readings at home. Hyperlipidemia - pt has been counseled about appropriate diet, exercise, and need for low fat food choices. I have discussed the need for the patient to take medications as prescribed. If the patient has negative side effects from the medication, they are to CALL the office and not abruptly discontinue the medication without discussion with a practitioner in the office. We will check labs in 3-6 months for follow up on the patient's chronic medical problem and to assure normal liver response to medications. Samples of crestor given to patient today . Hypertension - unc ontrolled - the patient's medications have been modified as documented in the visit note. The patient has been counseled to cut back on salt in diet for a no added salt diet, low fat diet, start an exercise program with low weight bearing exercises and higher aerobic activity for heart health. . Fatigue, Snoring disorder, excessive daytime sleepiness - recommended that Don have a sleep study - he did not pass a sleep study done over 7 years ago - but never got a machine for the sleep apnea - it was around the time he had a bypass and "it got lost in the aftermath of his bypass". I have recommended and had staff make a referral for sleep study at the hospital. Diabetes Mellitus - controlled - per recent FSBS reports. I have recommended for the patient to have follow up labs prior to the next office visit. The patient has been instructed to continue with current medications as previously directed, continue with regular FSBS monitoring to assure continued control of diabetes. Pt to call for any acute concerns, complaints, or if the blood glucose readings are starting to become less controlled. . Obesity - chronic issue with this patient. The pt has been counseled about diet changes, calorie restriction, and need to exercise. Pt will RTC in one month for weight check. Diabetes Mellitus - controlled - per recent FSBS reports. I have recommended for the patient to have follow up labs prior to the next office visit. The patient has been instructed to continue with current medications as previously directed, continue with regular FSBS monitoring to assure continued control of diabetes. Pt to call for any acute concerns, complaints, or if the blood glucose readings are starting to become less controlled. I have recommended for the patient to follow more strictly to the diabetic diet as discussed in clinic to allow for greater blood glucose control. Increase activity level - increase aerobic exercise Hyperlipidemia - pt has been counseled about appropriate diet, exercise, and need for low fat food choices. I have discussed the need for the patient to take medications as prescribed. If the patient has negative side effects from the medication, they are to CALL the office and not abruptly discontinue the medication without discussion with a practicioner in the office. We will check labs in 3-6 months for follow up on the patient's chronic medical problem and to assure normal liver response to medications. Pt does not want to start on statin - I will allow for him to try more aggressive exercise - if he does not have improved HDL, then need to consider starting on a statin at least three times a week. He states that he has been counseled by me and Dr. Culver in the past that he needed to be on a statin, but is hesitant to do so as he had myalgias with previous statin use. Hypertension - well controlled - continue with current medications, continue with no added salt diet. Pt has been encouraged to exercise daily. The pt has been advised to call the office if there are any acute concerns about change in blood pressure readings at home. . Hypertension - wel l controlled - continue with current medications, continue with no added salt diet. Pt has been encouraged to exercise daily. The pt has been advised to call the office if there are any acute concerns about change in blood pressure readings at home. Hyperlipidemia - pt has been counseled about appropriate diet, exercise, and need for low fat food choices. I have discussed the need for the patient to take medications as prescribed. If the patient has negative side effects from the medication, they are to CALL the office and not abruptly discontinue the medication without discussion with a practitioner in the office. We will check labs in 3-6 months for follow up on the patient's chronic medical problem and to assure normal liver response to medications. Edema - pt has been advised to elevate legs to prevent dependent edema, compression has been recommended to help to naturally decrease peripheral edema. Diuretic use has been discussed and pt has been instructed in appropriate use of such medication as necessary to further attempt to reduce peripheral edema. Diabetes Mellitus - controlled - per recent FSBS reports. I have recommended for the patient to have follow up labs prior to the next office visit. The patient has been instructed to continue with current medications as previously directed, continue with regular FSBS monitoring to assure continued control of diabetes. Pt to call for any acute concerns, complaints, or if the blood glucose readings are starting to become less controlled. I sent a prescriptio n for doxycycline 100mg twice daily to [facility]-start it this evening Call if you are not better or if any worse. . URI - Pt advised to increase fluids, vitamin C. Discussed natural and expected course of this diagnosis and need to alert me if symtpoms do not follow expected course, or if any worse. RX sent to patient's pharmacy. Allergies - Advised avoidance of allergens if possible, we discussed natural and expected course of this diagnosis and need to alert me if symtpoms do not follow expected course, or if any worse. Recommend claritin or zyrtec daily. . Hypertension - wel l controlled - continue with current medications, continue with no added salt diet. Pt has been encouraged to exercise daily. The pt has been advised to call the office if there are any acute concerns about change in blood pressure readings at home. Edema - bilateral lower legs - rx for lasix. . Hypertension - wel l controlled - continue with current medications, continue with no added salt diet. Pt has been encouraged to exercise daily. The pt has been advised to call the office if there are any acute concerns about change in blood pressure readings at home. Diabetes Mellitus - controlled - per recent FSBS reports. I have recommended for the patient to have follow up labs prior to the next office visit. The patient has been instructed to continue with current medications as previously directed, continue with regular FSBS monitoring to assure continued control of diabetes. Pt to call for any acute concerns, complaints, or if the blood glucose readings are starting to become less controlled. Abdominal/Flank pain - recommended pt to start stretching exercises for his flank/back pain - pt is not interested in physical therapy at this time. go back to just one losartan daily hold the fenofibrate (generic tricor) . Hypertension - well controlled - louise nue with current medications, continue with no added salt diet. Pt has been encouraged to exercise daily. The pt has been advised to call the office if there are any acute concerns about change in blood pressure readings at home. Diabetes Mellitus - controlled - per recent FSBS reports. I have recommended for the patient to have follow up labs prior to the next office visit. The patient has been instructed to continue with current medications as previously directed, continue with regular FSBS monitoring to assure continued control of diabetes. Pt to call for any acute concerns, complaints, or if the blood glucose readings are starting to become less controlled. tiger balm - muscle rub . Hypertension - well controlled - louise nue with current medications, continue with no added salt diet. Pt has been encouraged to exercise daily. The pt has been advised to call the office if there are any acute concerns about change in blood pressure readings at home. Atrial Fibrillation - pt on chronic anticoagulation and is currently rate controlled. The pt is to have labs done as appropriate to monitor medication levels and is to report if they start to feel as if their heart rate is becoming uncontrolled. Back pain - recommended muscle rub Chest xray at the [facility]. Bronchitis-cough - acute case of bronchitis identified. Pt has been given antibiotics, breathing treatments as appropriate, and pt has been instructed to call if symptoms are not improved, or if symptoms acutely worsen. sample of albuterol inhaler provided, demonstrated and instructed on use. Plan for chest xray today at the hospital. pt to keep on losartan bystolic and start on clonidine 0.1mg twice daily. . Hypertension - uncontrolled - the elvis ent's medications have been modified as documented in the visit note. The patient has been counseled to cut back on salt in diet for a no added salt diet, low fat diet, start an exercise program with low weight bearing exercises and higher aerobic activity for heart health. The patient is to check blood pressure readings as an outpatient and either fax, call, or email the readings to the office next week for practitioner to review. The pt is to call for acute concerns. pt to keep on losartan bystolic and start on clonidine 0.1mg twice daily. Diabetes Mellitus - controlled - per recent FSBS reports. I have recommended for the patient to have follow up labs prior to the next office visit. The patient has been instructed to continue with current medications as previously directed, continue with regular FSBS monitoring to assure continued control of diabetes. Pt to call for any acute concerns, complaints, or if the blood glucose readings are starting to become less controlled. . Continued fatigue, malaise post hospitalization - pt to expect some fatigue - however, will check chem panel, cbc since he had neutropenia in hospital and elevated creatinine and liver enzymes. Hypertension - not optimally controlled but pt to continue with current medications, continue with no added salt diet. Pt has been encouraged to exercise daily. The pt has been advised to call the office if there are any acute concerns about change in blood pressure readings at home. Diabetes Mellitus - controlled - per recent FSBS reports. I have recommended for the patient to have follow up labs prior to the next office visit. The patient has been instructed to continue with current medications as previously directed, continue with regular FSBS monitoring to assure continued control of diabetes. Pt to call for any acute concerns, complaints, or if the blood glucose readings are starting to become less controlled. . Hypertension - wel l controlled - continue with current medications, continue with no added salt diet. Pt has been encouraged to exercise daily. The pt has been advised to call the office if there are any acute concerns about change in blood pressure readings at home. Atrial Fibrillation - pt on chronic anticoagulation and is currently rate controlled. The pt is to have labs done as appropriate to monitor medication levels and is to report if they start to feel as if their heart rate is becoming uncontrolled. Comment . Diabetes Mellitus - controlled - per recent FSBS reports. I have recommended for the patient to have follow up labs prior to the next office visit. The patient has been instructed to continue with current medications as previously directed, continue with regular FSBS monitoring to assure continued control of diabetes. Pt to call for any acute concerns, complaints, or if the blood glucose readings are starting to become less controlled. Left hip pain - I have recommended a referral to Dr. Salgado for injection bursa at iliac crest. Hypertension - well controlled - continue with current medications, continue with no added salt diet. Pt has been encouraged to exercise daily. The pt has been advised to call the office if there are any acute concerns about change in blood pressure readings at home. Thrush - rx for nystatin swish and swallow. DEXILANT 60MG DAILY SULCRAFATE BEFORE MEALS AND AT BEDTIME CALL IF YOUR SYMPTOMS ARE UNCONTROLLED . Esophageal Reflux - the patient has be en counseled against excessive intake of caffeine, spicy foods, peppermint, and cinnamon - all of which can exacerbate esophageal reflux. The patient is to take medications as prescribed and call the office if the symptoms are not improving. . Hypertension - wel l controlled - continue with current medications, continue with no added salt diet. Pt has been encouraged to exercise daily. The pt has been advised to call the office if there are any acute concerns about change in blood pressure readings at home. Back pain - improving - continue with current treatment - continue with physical therapy. . Hypertension - unc ontrolled - the patient's medications have been modified as documented in the visit note. The patient has been counseled to cut back on salt in diet for a no added salt diet, low fat diet, start an exercise program with low weight bearing exercises and higher aerobic activity for heart health. The patient is to check blood pressure readings as an outpatient and either fax, call, or email the readings to the office next week for practitioner to review. The pt is to call for acute concerns. Pt changed to clonidine patch - stop clonidine pills. Fatigue, Snoring disorder, excessive daytime sleepiness - recommended that Don have a sleep study - he did not pass a sleep study done over 7 years ago - but never got a machine for the sleep apnea - it was around the time he had a bypass and "it got lost in the aftermath of his bypass". I have recommended and had staff make a referral for sleep study at the hospital. Diabetes Mellitus - controlled - per recent FSBS reports. I have recommended for the patient to have follow up labs prior to the next office visit. The patient has been instructed to continue with current medications as previously directed, continue with regular FSBS monitoring to assure continued control of diabetes. Pt to call for any acute concerns, complaints, or if the blood glucose readings are starting to become less controlled. . Hypertension - wel l controlled - continue with current medications, continue with no added salt diet. Pt has been encouraged to exercise daily. The pt has been advised to call the office if there are any acute concerns about change in blood pressure readings at home. Diabetes Mellitus - controlled - per recent FSBS reports. I have recommended for the patient to have follow up labs prior to the next office visit. The patient has been instructed to continue with current medications as previously directed, continue with regular FSBS monitoring to assure continued control of diabetes. Pt to call for any acute concerns, complaints, or if the blood glucose readings are starting to become less controlled. Esophageal Reflux - the patient has been counseled against excessive intake of caffiene, spicy foods, peppermint, and cinnamon - all of which can exacerbate esophageal reflux. The patient is to take medications as prescribed and call the office if the symptoms are not improving. Pt given rx for carafate, pt to call if not improved. refill phenergan wit h codeine cough syrup call if cough does not resolve and we can call in an antbiotic prevnar 13 when you are feeling better . Medicare Exam - today we discussed the patients past history, immunizations, preventative exams/evaluations - colonoscopy, fecal occult blood testing, routine labs for renal function, glucose, cholesterol, osteoporosis evaluations, cardiovascular testing and cancer screenings. We have also discussed mental health and the signs/symptoms of depression. The patient was advised of home safety evaluations and the need to make sure that as the aging process continues, we need to be aware of different ways to make the home a safer place to reside. The patient has also been counseled that exercise is necessary - and of utmost importance as we age to help decrease fall risk and to maintain independence in the home. Today we discussed the need for the patient to create paperwork for Advanced directives as well as for the patient to provide this office with a copy of her DOPA paperwork for health care surrogate. Cough- improving -call if symptoms do not resolve . Hypertension - wel l controlled - continue with current medications, continue with no added salt diet. Pt has been encouraged to exercise daily. The pt has been advised to call the office if there are any acute concerns about change in blood pressure readings at home. 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 . ADMIT FROM CLINIC TO HOSPITAL - PT IS ACUTELY ILL, REQUIRES HOSPITALIZATION. THE PATIENT HAS BEEN EVALUATED IN CLINIC AND THIS STANDS THE HOSPITAL HISTORY AND PHYSICAL EXAMINATION. THE PATIENT HAS BEEN SENT TO THE HOSPITAL WITH WRITTEN ORDERS FOR TREATMENT AND EVALUATION OF THE ACUTE ILLNESS. Pt to be started on rocephin, iv fluids, and will check labs - chem panel, cbc, tsh. . Diabetes Mellitus - controlled - per recent FSBS reports. I have recommended for the patient to have follow up labs prior to the next office visit. The patient has been instructed to continue with current medications as previously directed, continue with regular FSBS monitoring to assure continued control of diabetes. Pt to call for any acute concerns, complaints, or if the blood glucose readings are starting to become less controlled. I have recommended for the patient to follow more strictly to the diabetic diet as discussed in clinic to allow for greater blood glucose control. Increase activity level - increase aerobic exercise Hyperlipidemia - pt has been counseled about appropriate diet, exercise, and need for low fat food choices. I have discussed the need for the patient to take medications as prescribed. If the patient has negative side effects from the medication, they are to CALL the office and not abruptly discontinue the medication without discussion with a practicioner in the office. We will check labs in 3-6 months for follow up on the patient's chronic medical problem and to assure normal liver response to medications. Pt does not want to start on statin - I will allow for him to try more aggressive exercise - if he does not have improved HDL, then need to consider starting on a statin at least three times a week. He states that he has been counseled by me and Dr. Culver in the past that he needed to be on a statin, but is hesitant to do so as he had myalgias with previous statin use. Hypertension - well controlled - continue with current medications, continue with no added salt diet. Pt has been encouraged to exercise daily. The pt has been advised to call the office if there are any acute concerns about change in blood pressure readings at home. . Edema - pt has bee n advised to elevate legs to prevent dependent edema. Diuretic use has been discussed and pt has been instructed in appropriate use of such medication as necessary to further attempt to reduce peripheral edema. On the days he takes diruetic (LASIX) drink an extra glass of orange juice. Hypertension - fairly well controlled - continue with current medications, continue with no added salt diet. Pt has been encouraged to exercise daily. The pt has been advised to call the office if there are any acute concerns about change in blood pressure readings at home. . Hypertension - unc ontrolled - the patient's medications have been modified as documented in the visit note. The patient has been counseled to cut back on salt in diet for a no added salt diet, low fat diet, start an exercise program with low weight bearing exercises and higher aerobic activity for heart health. The patient is to check blood pressure readings as an outpatient and either fax, call, or email the readings to the office next week for practitioner to review. The pt is to call for acute concerns. Anemia - change iron to two days a week. Urge Incontinence - monitor symptoms - hold myrbetric x 1 week - report back to us about symptoms off f the myrbectric and he will follow up on his blood pressure that may be elevated due to his myrbetric Pt to increase the p epcid to twice daily Pt to keep appt with Dr. Bello on 06/25/13 @10:10AM. Esophageal Reflux - the patient has been counseled against excessive intake of caffiene, spicy foods, peppermint, and cinnamon - all of which can exacerbate esophageal reflux. The patient is to take medications as prescribed and call the office if the symptoms are not improving. Pt to increase the pepcid to twice daily Pt to keep appt with Dr. Bello on 06/25/13 @10:10AM . Hypertension - wel l controlled - continue with current medications, continue with no added salt diet. Pt has been encouraged to exercise daily. The pt has been advised to call the office if there are any acute concerns about change in blood pressure readings at home. Atrial Fibrillation - pt on chronic anticoagulation and is currently rate controlled. The pt is to have labs done as appropriate to monitor medication levels and is to report if they start to feel as if their heart rate is becoming uncontrolled. DM - FSBS fairly well controlled - continue current treatments - monitor symptoms. . Diabetes Mellitus - controlled - per recent FSBS reports. I have recommended for the patient to have follow up labs prior to the next office visit. The patient has been instructed to continue with current medications as previously directed, continue with regular FSBS monitoring to assure continued control of diabetes. Pt to call for any acute concerns, complaints, or if the blood glucose readings are starting to become less controlled. Biceps tendonitis - pt to do exercises as directed, antiinflammatories directed to be taken per RX instructions and pt to call if symptoms are not improved. . Hypertension - wel l controlled - continue with current medications, continue with no added salt diet. Pt has been encouraged to exercise daily. The pt has been advised to call the office if there are any acute concerns about change in blood pressure readings at home. Diabetes Mellitus - controlled - per recent FSBS reports. I have recommended for the patient to have follow up labs prior to the next office visit. The patient has been instructed to continue with current medications as previously directed, continue with regular FSBS monitoring to assure continued control of diabetes. Pt to call for any acute concerns, complaints, or if the blood glucose readings are starting to become less controlled. stop the pravastatin - . Hypertension - well controlled - louise nue with current medications, continue with no added salt diet. Pt has been encouraged to exercise daily. The pt has been advised to call the office if there are any acute concerns about change in blood pressure readings at home. Myalgias - stop pravastatin - continue with coenzyme q10. Monitor symptoms. Urinary frequency - check urinalysis. . Hypertension - wel l controlled - continue with current medications, continue with no added salt diet. Pt has been encouraged to exercise daily. The pt has been advised to call the office if there are any acute concerns about change in blood pressure readings at home. Diabetes Mellitus - controlled - per recent FSBS reports. I have recommended for the patient to have follow up labs prior to the next office visit. The patient has been instructed to continue with current medications as previously directed, continue with regular FSBS monitoring to assure continued control of diabetes. Pt to call for any acute concerns, complaints, or if the blood glucose readings are starting to become less controlled. Abdominal/Flank pain - recommended pt to start stretching exercises for his flank/back pain - pt is not interested in physical therapy at this time. . Right posterior fl ank/rib pain - need to ask Dr. Eros Worley if there is a specific test he would like to see done prior to an appt - question if nerve block would help his pain Hypertension - well controlled - continue with current medications, continue with no added salt diet. Pt has been encouraged to exercise daily. The pt has been advised to call the office if there are any acute concerns about change in blood pressure readings at home. . Hypertension - wel l controlled - continue with current medications, continue with no added salt diet. Pt has been encouraged to exercise daily. The pt has been advised to call the office if there are any acute concerns about change in blood pressure readings at home. Edema - bilateral lower legs - rx for lasix. take a probiotic tati ly while taking the doxycycline . Hypertension - well controlled - louise nue with current medications, continue with no added salt diet. Pt has been encouraged to exercise daily. The pt has been advised to call the office if there are any acute concerns about change in blood pressure readings at home. Atrial Fibrillation - pt on chronic anticoagulation and is currently rate controlled. The pt is to have labs done as appropriate to monitor medication levels and is to report if they start to feel as if their heart rate is becoming uncontrolled. Tick Borne Illness - continue with doxycycline plans - twice daily x 2 weeks, then daily x 1 month then prn symptoms of tick born illness. . Hypertension - wel l controlled - continue with current medications, continue with no added salt diet. Pt has been encouraged to exercise daily. The pt has been advised to call the office if there are any acute concerns about change in blood pressure readings at home. Diabetes Mellitus - controlled - per recent FSBS reports. I have recommended for the patient to have follow up labs prior to the next office visit. The patient has been instructed to continue with current medications as previously directed, continue with regular FSBS monitoring to assure continued control of diabetes. Pt to call for any acute concerns, complaints, or if the blood glucose readings are starting to become less controlled. Sciatica- exercises discussed with the patient, pt to start on steroid at low dose. Pt is to call if the symptoms do not improve or if they worsen. Due to uncontrolled symptoms, I have recommended a referral to [facility] I sent a prescriptio n for doxycycline 100mg twice daily to [facility]-start it this evening Call if you are not better or if any worse. . URI - Pt advised to increase fluids, vitamin C. Discussed natural and expected course of this diagnosis and need to alert me if symtpoms do not follow expected course, or if any worse. RX sent to patient's pharmacy. Allergies - Advised avoidance of allergens if possible, we discussed natural and expected course of this diagnosis and need to alert me if symtpoms do not follow expected course, or if any worse. Recommend claritin or zyrtec daily. PT TO INCREASE LOSAR WAGNER TO 100MG DAILY.. Diabetes Mellitus - controlled - per recent FSBS reports. I have recommended for the patient to have follow up labs prior to the next office visit. The patient has been instructed to continue with current medications as previously directed, continue with regular FSBS monitoring to assure continued control of diabetes. Pt to call for any acute concerns, complaints, or if the blood glucose readings are starting to become less controlled. Hypertension - uncontrolled - the patient's medications have been modified as documented in the visit note. The patient has been counseled to cut back on salt in diet for a no added salt diet, low fat diet, start an exercise program with low weight bearing exercises and higher aerobic activity for heart health. The patient is to check blood pressure readings as an outpatient and either fax, call, or email the readings to the office next week for practicioner to review. The pt is to call for acute concerns. PT TO INCREASE LOSARTAN TO 100MG DAILY. PT TO INCREASE EXERCISE - AEROBIC EXERCISE- TO HELP IMPROVE HDL AND DECREASE ABDOMINAL WEIGHT. . Bronchitis - acute case of bronchitis identified. Pt has been given antibiotics, breathing treatments as appropriate, and pt has been instructed to call if symptoms are not improved, or if symptoms acutely worsen. URI - Pt advised to increase fluids, vitamin C. Discussed natural and expected course of this diagnosis and need to alert me if symtpoms do not follow expected course, or if any worse. RX sent to patient's pharmacy. . Hypertension - wel l controlled - continue with current medications, continue with no added salt diet. Pt has been encouraged to exercise daily. The pt has been advised to call the office if there are any acute concerns about change in blood pressure readings at home. Co-Enzyme Q 10 - or Co Q 10 - take daily - to help relieve shoulder pain. Increase antioxidants in diet (blue villegas, pomegranate). . In Grown toenail - sees Dr Mauricio next week, until then soak toe in Epson salt water at night and after put cotton under toenail to help relieve pressure. Reflux - Take protonix in the evening for 1 week see if symptoms resolve, if not increase to twice a day for 1 week, call office to let know if symptoms are improved or not. Co-Enzyme Q 10 - or Co Q 10 - take daily - to help relieve shoulder pain. Increase antioxidants in diet (blue villegas, pomegranate). . Diabetes Mellitus - controlled - per recent FSBS reports. I have recommended for the patient to have follow up labs prior to the next office visit. The patient has been instructed to continue with current medications as previously directed, continue with regular FSBS monitoring to assure continued control of diabetes. Pt to call for any acute concerns, complaints, or if the blood glucose readings are starting to become less controlled. Noflu shots available, recommend pt to go to [facility] or [facility] for the shot. Kidney stone - keep appt with Dr. Hewitt for planned procedure for removal of kidney stone. . Chestwall pain - r ecommended use of topical antiinflammatory/topical aspercreme. HTN - not well controlled today - but pt has reports of good blood pressure control. DM- controlled per patient report. . Tic Bite - improvi ng - rx for blue goo TYLENOL 2 PILLS THRE E TIMES DAILY X 1 WEEK -TAKE WITH FOOD CHECK LABS LET ME KNOW IF YOUR JOINT PAIN DOES NOT IMPROVE CHECK LABS . Edema - pt has been advised to elevate legs to prevent dependent edema, compression has been recommended to help to naturally decrease peripheral edema. Diuretic use has been discussed and pt has been instructed in appropriate use of such medication as necessary to further attempt to reduce peripheral edema. Hypertension - well controlled - continue with current medications, continue with no added salt diet. Pt has been encouraged to exercise daily. The pt has been advised to call the office if there are any acute concerns about change in blood pressure readings at home. Joint pain -use tylenol as directed-check labs- call if pain does not resolve DM-check labs . URI - Pt advised t o increase fluids, vitamin C. Discussed natural and expected course of this diagnosis and need to alert me if symptoms do not follow expected course, or if any worse. RX sent to patient's pharmacy. change diltiazem fro m 180mg - new dose is 120mg - start this tomorrow. tonight - if heart rate is at or below 60, decrease the metoprolol to 50mg. new parameters if heart rate is at or below 55, decrease dose of metoprolol from 100mg down to 50mg. call if heart rate is above 100, or below 50. . Hypertension - well controlled - louise nue with current medications, continue with no added salt diet. Pt has been encouraged to exercise daily. The pt has been advised to call the office if there are any acute concerns about change in blood pressure readings at home. Atrial Fibrillation - pt on chronic anticoagulation and is currently rate controlled. The pt is to have labs done as appropriate to monitor medication levels and is to report if they start to feel as if their heart rate is becoming uncontrolled. change diltiazem from 180mg - new dose is 120mg - start this tomorrow. tonight - if heart rate is at or below 60, decrease the metoprolol to 50mg. new parameters if heart rate is at or below 55, decrease dose of metoprolol from 100mg down to 50mg. call if heart rate is above 100, or below 50. Fatigue - improved since stopping amiodarone get the dissolving b 12 tabs - and okay to take the b vitamins with biotin . Recurrent urinary tract infection - mo nitor symptoms - pt has had full treatment for infection and is to let us know if infection symptoms return. . Hypertension - wel l controlled - continue with current medications, continue with no added salt diet. Pt has been encouraged to exercise daily. The pt has been advised to call the office if there are any acute concerns about change in blood pressure readings at home. Diabetes Mellitus - controlled - per recent FSBS reports. I have recommended for the patient to have follow up labs prior to the next office visit. The patient has been instructed to continue with current medications as previously directed, continue with regular FSBS monitoring to assure continued control of diabetes. Pt to call for any acute concerns, complaints, or if the blood glucose readings are starting to become less controlled. Cough - recent dx of pneumonia - pt sent to hospital for xray. extension of antibiotics - doxycycline 100mg bid x 7 more days. . Hypertension - wel l controlled - continue with current medications, continue with no added salt diet. Pt has been encouraged to exercise daily. The pt has been advised to call the office if there are any acute concerns about change in blood pressure readings at home. Myalgias - improved - no change in current management go back to just one losartan daily hold the fenofibrate (generic tricor) . Hypertension - well controlled - louise nue with current medications, continue with no added salt diet. Pt has been encouraged to exercise daily. The pt has been advised to call the office if there are any acute concerns about change in blood pressure readings at home. Diabetes Mellitus - controlled - per recent FSBS reports. I have recommended for the patient to have follow up labs prior to the next office visit. The patient has been instructed to continue with current medications as previously directed, continue with regular FSBS monitoring to assure continued control of diabetes. Pt to call for any acute concerns, complaints, or if the blood glucose readings are starting to become less controlled. tiger balm - muscle rub . Hypertension - well controlled - louise nue with current medications, continue with no added salt diet. Pt has been encouraged to exercise daily. The pt has been advised to call the office if there are any acute concerns about change in blood pressure readings at home. Atrial Fibrillation - pt on chronic anticoagulation and is currently rate controlled. The pt is to have labs done as appropriate to monitor medication levels and is to report if they start to feel as if their heart rate is becoming uncontrolled. Back pain - recommended muscle rub . Hypertension - wel l controlled - continue with current medications, continue with no added salt diet. Pt has been encouraged to exercise daily. The pt has been advised to call the office if there are any acute concerns about change in blood pressure readings at home. Diabetes Mellitus - controlled - per recent FSBS reports. I have recommended for the patient to have follow up labs prior to the next office visit. The patient has been instructed to continue with current medications as previously directed, continue with regular FSBS monitoring to assure continued control of diabetes. Pt to call for any acute concerns, complaints, or if the blood glucose readings are starting to become less controlled. Chest xray at the [facility]. Bronchitis-cough - acute case of bronchitis identified. Pt has been given antibiotics, breathing treatments as appropriate, and pt has been instructed to call if symptoms are not improved, or if symptoms acutely worsen. sample of albuterol inhaler provided, demonstrated and instructed on use. Plan for chest xray today at the hospital. pt to keep on losartan bystolic and start on clonidine 0.1mg twice daily. . Hypertension - uncontrolled - the elvis ent's medications have been modified as documented in the visit note. The patient has been counseled to cut back on salt in diet for a no added salt diet, low fat diet, start an exercise program with low weight bearing exercises and higher aerobic activity for heart health. The patient is to check blood pressure readings as an outpatient and either fax, call, or email the readings to the office next week for practitioner to review. The pt is to call for acute concerns. pt to keep on losartan bystolic and start on clonidine 0.1mg twice daily. Diabetes Mellitus - controlled - per recent FSBS reports. I have recommended for the patient to have follow up labs prior to the next office visit. The patient has been instructed to continue with current medications as previously directed, continue with regular FSBS monitoring to assure continued control of diabetes. Pt to call for any acute concerns, complaints, or if the blood glucose readings are starting to become less controlled. . Bradycardia - pt t o maintain current medication - I have recommended his to check his blood pressure and heart rate at 1 hour, 1.5 hour and 2 hour post intake of toprol. IF his heart rate is at or below 45, we need to consider decreasing his toprol to 25mg bid. Hypertension - well controlled - continue with current medications, continue with no added salt diet. Pt has been encouraged to exercise daily. The pt has been advised to call the office if there are any acute concerns about change in blood pressure readings at home. flu shot given in clinic today . Right hip pain -di scussed with Dr Salgado's office-okay for injection today -instructed patient to follow up with them if pain does not resolve-kenalog injection today in the office- recommend heat this evening - instructed patient to call if symptoms do not improve or if any worse. . Diabetes Mellitus - controlled - per recent FSBS reports. I have recommended for the patient to have follow up labs prior to the next office visit. The patient has been instructed to continue with current medications as previously directed, continue with regular FSBS monitoring to assure continued control of diabetes. Pt to call for any acute concerns, complaints, or if the blood glucose readings are starting to become less controlled. Hypertension - well controlled - continue with current medications, continue with no added salt diet. Pt has been encouraged to exercise daily. The pt has been advised to call the office if there are any acute concerns about change in blood pressure readings at home. . Continued fatigue, malaise post hospitalization - pt to expect some fatigue - however, will check chem panel, cbc since he had neutropenia in hospital and elevated creatinine and liver enzymes. Hypertension - not optimally controlled but pt to continue with current medications, continue with no added salt diet. Pt has been encouraged to exercise daily. The pt has been advised to call the office if there are any acute concerns about change in blood pressure readings at home. Diabetes Mellitus - controlled - per recent FSBS reports. I have recommended for the patient to have follow up labs prior to the next office visit. The patient has been instructed to continue with current medications as previously directed, continue with regular FSBS monitoring to assure continued control of diabetes. Pt to call for any acute concerns, complaints, or if the blood glucose readings are starting to become less controlled. . Hypertension - wel l controlled - continue with current medications, continue with no added salt diet. Pt has been encouraged to exercise daily. The pt has been advised to call the office if there are any acute concerns about change in blood pressure readings at home. Atrial Fibrillation - pt on chronic anticoagulation and is currently rate controlled. The pt is to have labs done as appropriate to monitor medication levels and is to report if they start to feel as if their heart rate is becoming uncontrolled. . Hypertension - wel l controlled - continue with current medications, continue with no added salt diet. Pt has been encouraged to exercise daily. The pt has been advised to call the office if there are any acute concerns about change in blood pressure readings at home. Hyperlipidemia - pt has been counseled about appropriate diet, exercise, and need for low fat food choices. I have discussed the need for the patient to take medications as prescribed. If the patient has negative side effects from the medication, they are to CALL the office and not abruptly discontinue the medication without discussion with a practitioner in the office. We will check labs in 3-6 months for follow up on the patient's chronic medical problem and to assure normal liver response to medications. Samples of crestor given to patient today . Hypertension - unc ontrolled - the patient's medications have been modified as documented in the visit note. The patient has been counseled to cut back on salt in diet for a no added salt diet, low fat diet, start an exercise program with low weight bearing exercises and higher aerobic activity for heart health. . Fatigue, Snoring disorder, excessive daytime sleepiness - recommended that Don have a sleep study - he did not pass a sleep study done over 7 years ago - but never got a machine for the sleep apnea - it was around the time he had a bypass and "it got lost in the aftermath of his bypass". I have recommended and had staff make a referral for sleep study at the hospital. Diabetes Mellitus - controlled - per recent FSBS reports. I have recommended for the patient to have follow up labs prior to the next office visit. The patient has been instructed to continue with current medications as previously directed, continue with regular FSBS monitoring to assure continued control of diabetes. Pt to call for any acute concerns, complaints, or if the blood glucose readings are starting to become less controlled. . Obesity - chronic issue with this patient. The pt has been counseled about diet changes, calorie restriction, and need to exercise. Pt will RTC in one month for weight check. Diabetes Mellitus - controlled - per recent FSBS reports. I have recommended for the patient to have follow up labs prior to the next office visit. The patient has been instructed to continue with current medications as previously directed, continue with regular FSBS monitoring to assure continued control of diabetes. Pt to call for any acute concerns, complaints, or if the blood glucose readings are starting to become less controlled. I have recommended for the patient to follow more strictly to the diabetic diet as discussed in clinic to allow for greater blood glucose control. Increase activity level - increase aerobic exercise Hyperlipidemia - pt has been counseled about appropriate diet, exercise, and need for low fat food choices. I have discussed the need for the patient to take medications as prescribed. If the patient has negative side effects from the medication, they are to CALL the office and not abruptly discontinue the medication without discussion with a practicioner in the office. We will check labs in 3-6 months for follow up on the patient's chronic medical problem and to assure normal liver response to medications. Pt does not want to start on statin - I will allow for him to try more aggressive exercise - if he does not have improved HDL, then need to consider starting on a statin at least three times a week. He states that he has been counseled by me and Dr. Culver in the past that he needed to be on a statin, but is hesitant to do so as he had myalgias with previous statin use. Hypertension - well controlled - continue with current medications, continue with no added salt diet. Pt has been encouraged to exercise daily. The pt has been advised to call the office if there are any acute concerns about change in blood pressure readings at home. . Hospital follow up - This was a follow up appointment from the patient's hospitalization during which time Dr. Shetty formulated the assessment and plan for the follow up on this patient's medical condition. . Hypertension - wel l controlled - continue with current medications, continue with no added salt diet. Pt has been encouraged to exercise daily. The pt has been advised to call the office if there are any acute concerns about change in blood pressure readings at home. Hyperlipidemia - pt has been counseled about appropriate diet, exercise, and need for low fat food choices. I have discussed the need for the patient to take medications as prescribed. If the patient has negative side effects from the medication, they are to CALL the office and not abruptly discontinue the medication without discussion with a practitioner in the office. We will check labs in 3-6 months for follow up on the patient's chronic medical problem and to assure normal liver response to medications. Edema - pt has been advised to elevate legs to prevent dependent edema, compression has been recommended to help to naturally decrease peripheral edema. Diuretic use has been discussed and pt has been instructed in appropriate use of such medication as necessary to further attempt to reduce peripheral edema. Diabetes Mellitus - controlled - per recent FSBS reports. I have recommended for the patient to have follow up labs prior to the next office visit. The patient has been instructed to continue with current medications as previously directed, continue with regular FSBS monitoring to assure continued control of diabetes. Pt to call for any acute concerns, complaints, or if the blood glucose readings are starting to become less controlled. Comment . ADMIT FROM CLINIC TO HOSPITAL - PT IS ACUTELY ILL, REQUIRES HOSPITALIZATION. THE PATIENT HAS BEEN EVALUATED IN CLINIC AND THIS STANDS THE HOSPITAL HISTORY AND PHYSICAL EXAMINATION. THE PATIENT HAS BEEN SENT TO THE HOSPITAL WITH WRITTEN ORDERS FOR TREATMENT AND EVALUATION OF THE ACUTE ILLNESS. Pt to be started on rocephin, iv fluids, and will check labs - chem panel, cbc, tsh. . Diabetes Mellitus - controlled - per recent FSBS reports. I have recommended for the patient to have follow up labs prior to the next office visit. The patient has been instructed to continue with current medications as previously directed, continue with regular FSBS monitoring to assure continued control of diabetes. Pt to call for any acute concerns, complaints, or if the blood glucose readings are starting to become less controlled. I have recommended for the patient to follow more strictly to the diabetic diet as discussed in clinic to allow for greater blood glucose control. Increase activity level - increase aerobic exercise Hyperlipidemia - pt has been counseled about appropriate diet, exercise, and need for low fat food choices. I have discussed the need for the patient to take medications as prescribed. If the patient has negative side effects from the medication, they are to CALL the office and not abruptly discontinue the medication without discussion with a practicioner in the office. We will check labs in 3-6 months for follow up on the patient's chronic medical problem and to assure normal liver response to medications. Pt does not want to start on statin - I will allow for him to try more aggressive exercise - if he does not have improved HDL, then need to consider starting on a statin at least three times a week. He states that he has been counseled by me and Dr. Culver in the past that he needed to be on a statin, but is hesitant to do so as he had myalgias with previous statin use. Hypertension - well controlled - continue with current medications, continue with no added salt diet. Pt has been encouraged to exercise daily. The pt has been advised to call the office if there are any acute concerns about change in blood pressure readings at home. Pt to increase the p epcid to twice daily Pt to keep appt with Dr. Bello on 06/25/13 @10:10AM. Esophageal Reflux - the patient has been counseled against excessive intake of caffiene, spicy foods, peppermint, and cinnamon - all of which can exacerbate esophageal reflux. The patient is to take medications as prescribed and call the office if the symptoms are not improving. Pt to increase the pepcid to twice daily Pt to keep appt with Dr. Bello on 06/25/13 @10:10AM . Hypertension - unc ontrolled - the patient's medications have been modified as documented in the visit note. The patient has been counseled to cut back on salt in diet for a no added salt diet, low fat diet, start an exercise program with low weight bearing exercises and higher aerobic activity for heart health. The patient is to check blood pressure readings as an outpatient and either fax, call, or email the readings to the office next week for practitioner to review. The pt is to call for acute concerns. Anemia - change iron to two days a week. Urge Incontinence - monitor symptoms - hold myrbetric x 1 week - report back to us about symptoms off f the myrbectric and he will follow up on his blood pressure that may be elevated due to his myrbetric I sent a prescriptio n for doxycycline 100mg twice daily to [facility]-start it this evening Call if you are not better or if any worse. . URI - Pt advised to increase fluids, vitamin C. Discussed natural and expected course of this diagnosis and need to alert me if symtpoms do not follow expected course, or if any worse. RX sent to patient's pharmacy. Allergies - Advised avoidance of allergens if possible, we discussed natural and expected course of this diagnosis and need to alert me if symtpoms do not follow expected course, or if any worse. Recommend claritin or zyrtec daily. . Edema - pt has bee n advised to elevate legs to prevent dependent edema. Diuretic use has been discussed and pt has been instructed in appropriate use of such medication as necessary to further attempt to reduce peripheral edema. On the days he takes diruetic (LASIX) drink an extra glass of orange juice. Hypertension - fairly well controlled - continue with current medications, continue with no added salt diet. Pt has been encouraged to exercise daily. The pt has been advised to call the office if there are any acute concerns about change in blood pressure readings at home. . Diabetes Mellitus - controlled - per recent FSBS reports. I have recommended for the patient to have follow up labs prior to the next office visit. The patient has been instructed to continue with current medications as previously directed, continue with regular FSBS monitoring to assure continued control of diabetes. Pt to call for any acute concerns, complaints, or if the blood glucose readings are starting to become less controlled. Noflu shots available, recommend pt to go to [facility] or [facility] for the shot. Kidney stone - keep appt with Dr. Hewitt for planned procedure for removal of kidney stone. . Hypertension - wel l controlled - continue with current medications, continue with no added salt diet. Pt has been encouraged to exercise daily. The pt has been advised to call the office if there are any acute concerns about change in blood pressure readings at home. 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 refill phenergan wit h codeine cough syrup call if cough does not resolve and we can call in an antbiotic prevnar 13 when you are feeling better . Medicare Exam - today we discussed the patients past history, immunizations, preventative exams/evaluations - colonoscopy, fecal occult blood testing, routine labs for renal function, glucose, cholesterol, osteoporosis evaluations, cardiovascular testing and cancer screenings. We have also discussed mental health and the signs/symptoms of depression. The patient was advised of home safety evaluations and the need to make sure that as the aging process continues, we need to be aware of different ways to make the home a safer place to reside. The patient has also been counseled that exercise is necessary - and of utmost importance as we age to help decrease fall risk and to maintain independence in the home. Today we discussed the need for the patient to create paperwork for Advanced directives as well as for the patient to provide this office with a copy of her DOPA paperwork for health care surrogate. Cough- improving -call if symptoms do not resolve . Hypertension - wel l controlled - continue with current medications, continue with no added salt diet. Pt has been encouraged to exercise daily. The pt has been advised to call the office if there are any acute concerns about change in blood pressure readings at home. Diabetes Mellitus - controlled - per recent FSBS reports. I have recommended for the patient to have follow up labs prior to the next office visit. The patient has been instructed to continue with current medications as previously directed, continue with regular FSBS monitoring to assure continued control of diabetes. Pt to call for any acute concerns, complaints, or if the blood glucose readings are starting to become less controlled. Esophageal Reflux - the patient has been counseled against excessive intake of caffiene, spicy foods, peppermint, and cinnamon - all of which can exacerbate esophageal reflux. The patient is to take medications as prescribed and call the office if the symptoms are not improving. Pt given rx for carafate, pt to call if not improved. . Hypertension - unc ontrolled - the patient's medications have been modified as documented in the visit note. The patient has been counseled to cut back on salt in diet for a no added salt diet, low fat diet, start an exercise program with low weight bearing exercises and higher aerobic activity for heart health. The patient is to check blood pressure readings as an outpatient and either fax, call, or email the readings to the office next week for practitioner to review. The pt is to call for acute concerns. Pt changed to clonidine patch - stop clonidine pills. Fatigue, Snoring disorder, excessive daytime sleepiness - recommended that Don have a sleep study - he did not pass a sleep study done over 7 years ago - but never got a machine for the sleep apnea - it was around the time he had a bypass and "it got lost in the aftermath of his bypass". I have recommended and had staff make a referral for sleep study at the hospital. Diabetes Mellitus - controlled - per recent FSBS reports. I have recommended for the patient to have follow up labs prior to the next office visit. The patient has been instructed to continue with current medications as previously directed, continue with regular FSBS monitoring to assure continued control of diabetes. Pt to call for any acute concerns, complaints, or if the blood glucose readings are starting to become less controlled. . Hypertension - wel l controlled - continue with current medications, continue with no added salt diet. Pt has been encouraged to exercise daily. The pt has been advised to call the office if there are any acute concerns about change in blood pressure readings at home. Back pain - improving - continue with current treatment - continue with physical therapy. DEXILANT 60MG DAILY SULCRAFATE BEFORE MEALS AND AT BEDTIME CALL IF YOUR SYMPTOMS ARE UNCONTROLLED . Esophageal Reflux - the patient has be en counseled against excessive intake of caffeine, spicy foods, peppermint, and cinnamon - all of which can exacerbate esophageal reflux. The patient is to take medications as prescribed and call the office if the symptoms are not improving. . Diabetes Mellitus - controlled - per recent FSBS reports. I have recommended for the patient to have follow up labs prior to the next office visit. The patient has been instructed to continue with current medications as previously directed, continue with regular FSBS monitoring to assure continued control of diabetes. Pt to call for any acute concerns, complaints, or if the blood glucose readings are starting to become less controlled. Left hip pain - I have recommended a referral to Dr. Zafuta for injection bursa at iliac crest. Hypertension - well controlled - continue with current medications, continue with no added salt diet. Pt has been encouraged to exercise daily. The pt has been advised to call the office if there are any acute concerns about change in blood pressure readings at home. Thrush - rx for nystatin swish and swallow. take a probiotic tati ly while taking the doxycycline . Hypertension - well controlled - louise nue with current medications, continue with no added salt diet. Pt has been encouraged to exercise daily. The pt has been advised to call the office if there are any acute concerns about change in blood pressure readings at home. Atrial Fibrillation - pt on chronic anticoagulation and is currently rate controlled. The pt is to have labs done as appropriate to monitor medication levels and is to report if they start to feel as if their heart rate is becoming uncontrolled. Tick Borne Illness - continue with doxycycline plans - twice daily x 2 weeks, then daily x 1 month then prn symptoms of tick born illness. . Hypertension - wel l controlled - continue with current medications, continue with no added salt diet. Pt has been encouraged to exercise daily. The pt has been advised to call the office if there are any acute concerns about change in blood pressure readings at home. Edema - bilateral lower legs - rx for lasix. . Right posterior fl ank/rib pain - need to ask Dr. Eros Worley if there is a specific test he would like to see done prior to an appt - question if nerve block would help his pain Hypertension - well controlled - continue with current medications, continue with no added salt diet. Pt has been encouraged to exercise daily. The pt has been advised to call the office if there are any acute concerns about change in blood pressure readings at home. . Hypertension - wel l controlled - continue with current medications, continue with no added salt diet. Pt has been encouraged to exercise daily. The pt has been advised to call the office if there are any acute concerns about change in blood pressure readings at home. Diabetes Mellitus - controlled - per recent FSBS reports. I have recommended for the patient to have follow up labs prior to the next office visit. The patient has been instructed to continue with current medications as previously directed, continue with regular FSBS monitoring to assure continued control of diabetes. Pt to call for any acute concerns, complaints, or if the blood glucose readings are starting to become less controlled. Abdominal/Flank pain - recommended pt to start stretching exercises for his flank/back pain - pt is not interested in physical therapy at this time. stop the pravastatin - . Hypertension - well controlled - louise nue with current medications, continue with no added salt diet. Pt has been encouraged to exercise daily. The pt has been advised to call the office if there are any acute concerns about change in blood pressure readings at home. Myalgias - stop pravastatin - continue with coenzyme q10. Monitor symptoms. Urinary frequency - check urinalysis. . Hypertension - wel l controlled - continue with current medications, continue with no added salt diet. Pt has been encouraged to exercise daily. The pt has been advised to call the office if there are any acute concerns about change in blood pressure readings at home. Diabetes Mellitus - controlled - per recent FSBS reports. I have recommended for the patient to have follow up labs prior to the next office visit. The patient has been instructed to continue with current medications as previously directed, continue with regular FSBS monitoring to assure continued control of diabetes. Pt to call for any acute concerns, complaints, or if the blood glucose readings are starting to become less controlled. . Diabetes Mellitus - controlled - per recent FSBS reports. I have recommended for the patient to have follow up labs prior to the next office visit. The patient has been instructed to continue with current medications as previously directed, continue with regular FSBS monitoring to assure continued control of diabetes. Pt to call for any acute concerns, complaints, or if the blood glucose readings are starting to become less controlled. Biceps tendonitis - pt to do exercises as directed, antiinflammatories directed to be taken per RX instructions and pt to call if symptoms are not improved. . Hypertension - wel l controlled - continue with current medications, continue with no added salt diet. Pt has been encouraged to exercise daily. The pt has been advised to call the office if there are any acute concerns about change in blood pressure readings at home. Atrial Fibrillation - pt on chronic anticoagulation and is currently rate controlled. The pt is to have labs done as appropriate to monitor medication levels and is to report if they start to feel as if their heart rate is becoming uncontrolled. DM - FSBS fairly well controlled - continue current treatments - monitor symptoms. . Hypertension - wel l controlled - continue with current medications, continue with no added salt diet. Pt has been encouraged to exercise daily. The pt has been advised to call the office if there are any acute concerns about change in blood pressure readings at home. Diabetes Mellitus - controlled - per recent FSBS reports. I have recommended for the patient to have follow up labs prior to the next office visit. The patient has been instructed to continue with current medications as previously directed, continue with regular FSBS monitoring to assure continued control of diabetes. Pt to call for any acute concerns, complaints, or if the blood glucose readings are starting to become less controlled. Sciatica- exercises discussed with the patient, pt to start on steroid at low dose. Pt is to call if the symptoms do not improve or if they worsen. Due to uncontrolled symptoms, I have recommended a referral to [facility] TO INCREASE LOSAR WAGNER TO 100MG DAILY.. Diabetes Mellitus - controlled - per recent FSBS reports. I have recommended for the patient to have follow up labs prior to the next office visit. The patient has been instructed to continue with current medications as previously directed, continue with regular FSBS monitoring to assure continued control of diabetes. Pt to call for any acute concerns, complaints, or if the blood glucose readings are starting to become less controlled. Hypertension - uncontrolled - the patient's medications have been modified as documented in the visit note. The patient has been counseled to cut back on salt in diet for a no added salt diet, low fat diet, start an exercise program with low weight bearing exercises and higher aerobic activity for heart health. The patient is to check blood pressure readings as an outpatient and either fax, call, or email the readings to the office next week for practicioner to review. The pt is to call for acute concerns. PT TO INCREASE LOSARTAN TO 100MG DAILY. PT TO INCREASE EXERCISE - AEROBIC EXERCISE- TO HELP IMPROVE HDL AND DECREASE ABDOMINAL WEIGHT. . Bronchitis - acute case of bronchitis identified. Pt has been given antibiotics, breathing treatments as appropriate, and pt has been instructed to call if symptoms are not improved, or if symptoms acutely worsen. URI - Pt advised to increase fluids, vitamin C. Discussed natural and expected course of this diagnosis and need to alert me if symtpoms do not follow expected course, or if any worse. RX sent to patient's pharmacy. . Hypertension - wel l controlled - continue with current medications, continue with no added salt diet. Pt has been encouraged to exercise daily. The pt has been advised to call the office if there are any acute concerns about change in blood pressure readings at home. Co-Enzyme Q 10 - or Co Q 10 - take daily - to help relieve shoulder pain. Increase antioxidants in diet (blue villegas, pomegranate). . In Grown toenail - sees Dr Mauricio next week, until then soak toe in Epson salt water at night and after put cotton under toenail to help relieve pressure. Reflux - Take protonix in the evening for 1 week see if symptoms resolve, if not increase to twice a day for 1 week, call office to let know if symptoms are improved or not. Co-Enzyme Q 10 - or Co Q 10 - take daily - to help relieve shoulder pain. Increase antioxidants in diet (blue villegas, pomegranate). . Chestwall pain - r ecommended use of topical antiinflammatory/topical aspercreme. HTN - not well controlled today - but pt has reports of good blood pressure control. DM- controlled per patient report. . Tic Bite - improvi ng - rx for blue goo TYLENOL 2 PILLS THRE E TIMES DAILY X 1 WEEK -TAKE WITH FOOD CHECK LABS LET ME KNOW IF YOUR JOINT PAIN DOES NOT IMPROVE CHECK LABS . Edema - pt has been advised to elevate legs to prevent dependent edema, compression has been recommended to help to naturally decrease peripheral edema. Diuretic use has been discussed and pt has been instructed in appropriate use of such medication as necessary to further attempt to reduce peripheral edema. Hypertension - well controlled - continue with current medications, continue with no added salt diet. Pt has been encouraged to exercise daily. The pt has been advised to call the office if there are any acute concerns about change in blood pressure readings at home. Joint pain -use tylenol as directed-check labs- call if pain does not resolve DM-check labs . URI - Pt advised t o increase fluids, vitamin C. Discussed natural and expected course of this diagnosis and need to alert me if symptoms do not follow expected course, or if any worse. RX sent to patient's pharmacy. change diltiazem fro m 180mg - new dose is 120mg - start this tomorrow. tonight - if heart rate is at or below 60, decrease the metoprolol to 50mg. new parameters if heart rate is at or below 55, decrease dose of metoprolol from 100mg down to 50mg. call if heart rate is above 100, or below 50. . Hypertension - well controlled - louise nue with current medications, continue with no added salt diet. Pt has been encouraged to exercise daily. The pt has been advised to call the office if there are any acute concerns about change in blood pressure readings at home. Atrial Fibrillation - pt on chronic anticoagulation and is currently rate controlled. The pt is to have labs done as appropriate to monitor medication levels and is to report if they start to feel as if their heart rate is becoming uncontrolled. change diltiazem from 180mg - new dose is 120mg - start this tomorrow. tonight - if heart rate is at or below 60, decrease the metoprolol to 50mg. new parameters if heart rate is at or below 55, decrease dose of metoprolol from 100mg down to 50mg. call if heart rate is above 100, or below 50. Fatigue - improved since stopping amiodarone get the dissolving b 12 tabs - and okay to take the b vitamins with biotin . Recurrent urinary tract infection - mo nitor symptoms - pt has had full treatment for infection and is to let us know if infection symptoms return. . Hypertension - wel l controlled - continue with current medications, continue with no added salt diet. Pt has been encouraged to exercise daily. The pt has been advised to call the office if there are any acute concerns about change in blood pressure readings at home. Diabetes Mellitus - controlled - per recent FSBS reports. I have recommended for the patient to have follow up labs prior to the next office visit. The patient has been instructed to continue with current medications as previously directed, continue with regular FSBS monitoring to assure continued control of diabetes. Pt to call for any acute concerns, complaints, or if the blood glucose readings are starting to become less controlled. Cough - recent dx of pneumonia - pt sent to hospital for xray. extension of antibiotics - doxycycline 100mg bid x 7 more days. . Hypertension - wel l controlled - continue with current medications, continue with no added salt diet. Pt has been encouraged to exercise daily. The pt has been advised to call the office if there are any acute concerns about change in blood pressure readings at home. Myalgias - improved - no change in current management tiger balm - muscle rub . Hypertension - well controlled - louise nue with current medications, continue with no added salt diet. Pt has been encouraged to exercise daily. The pt has been advised to call the office if there are any acute concerns about change in blood pressure readings at home. Atrial Fibrillation - pt on chronic anticoagulation and is currently rate controlled. The pt is to have labs done as appropriate to monitor medication levels and is to report if they start to feel as if their heart rate is becoming uncontrolled. Back pain - recommended muscle rub . Hypertension - wel l controlled - continue with current medications, continue with no added salt diet. Pt has been encouraged to exercise daily. The pt has been advised to call the office if there are any acute concerns about change in blood pressure readings at home. Diabetes Mellitus - controlled - per recent FSBS reports. I have recommended for the patient to have follow up labs prior to the next office visit. The patient has been instructed to continue with current medications as previously directed, continue with regular FSBS monitoring to assure continued control of diabetes. Pt to call for any acute concerns, complaints, or if the blood glucose readings are starting to become less controlled. Chest xray at the [facility]. Bronchitis-cough - acute case of bronchitis identified. Pt has been given antibiotics, breathing treatments as appropriate, and pt has been instructed to call if symptoms are not improved, or if symptoms acutely worsen. sample of albuterol inhaler provided, demonstrated and instructed on use. Plan for chest xray today at the hospital. pt to keep on losartan bystolic and start on clonidine 0.1mg twice daily. . Hypertension - uncontrolled - the elvis ent's medications have been modified as documented in the visit note. The patient has been counseled to cut back on salt in diet for a no added salt diet, low fat diet, start an exercise program with low weight bearing exercises and higher aerobic activity for heart health. The patient is to check blood pressure readings as an outpatient and either fax, call, or email the readings to the office next week for practitioner to review. The pt is to call for acute concerns. pt to keep on losartan bystolic and start on clonidine 0.1mg twice daily. Diabetes Mellitus - controlled - per recent FSBS reports. I have recommended for the patient to have follow up labs prior to the next office visit. The patient has been instructed to continue with current medications as previously directed, continue with regular FSBS monitoring to assure continued control of diabetes. Pt to call for any acute concerns, complaints, or if the blood glucose readings are starting to become less controlled. . Bradycardia - pt t o maintain current medication - I have recommended his to check his blood pressure and heart rate at 1 hour, 1.5 hour and 2 hour post intake of toprol. IF his heart rate is at or below 45, we need to consider decreasing his toprol to 25mg bid. Hypertension - well controlled - continue with current medications, continue with no added salt diet. Pt has been encouraged to exercise daily. The pt has been advised to call the office if there are any acute concerns about change in blood pressure readings at home. flu shot given in clinic today . Right hip pain -di scussed with Dr Salgado's office-okay for injection today -instructed patient to follow up with them if pain does not resolve-kenalog injection today in the office- recommend heat this evening - instructed patient to call if symptoms do not improve or if any worse. . Diabetes Mellitus - controlled - per recent FSBS reports. I have recommended for the patient to have follow up labs prior to the next office visit. The patient has been instructed to continue with current medications as previously directed, continue with regular FSBS monitoring to assure continued control of diabetes. Pt to call for any acute concerns, complaints, or if the blood glucose readings are starting to become less controlled. Hypertension - well controlled - continue with current medications, continue with no added salt diet. Pt has been encouraged to exercise daily. The pt has been advised to call the office if there are any acute concerns about change in blood pressure readings at home. . Continued fatigue, malaise post hospitalization - pt to expect some fatigue - however, will check chem panel, cbc since he had neutropenia in hospital and elevated creatinine and liver enzymes. Hypertension - not optimally controlled but pt to continue with current medications, continue with no added salt diet. Pt has been encouraged to exercise daily. The pt has been advised to call the office if there are any acute concerns about change in blood pressure readings at home. Diabetes Mellitus - controlled - per recent FSBS reports. I have recommended for the patient to have follow up labs prior to the next office visit. The patient has been instructed to continue with current medications as previously directed, continue with regular FSBS monitoring to assure continued control of diabetes. Pt to call for any acute concerns, complaints, or if the blood glucose readings are starting to become less controlled. . Hypertension - wel l controlled - continue with current medications, continue with no added salt diet. Pt has been encouraged to exercise daily. The pt has been advised to call the office if there are any acute concerns about change in blood pressure readings at home. Atrial Fibrillation - pt on chronic anticoagulation and is currently rate controlled. The pt is to have labs done as appropriate to monitor medication levels and is to report if they start to feel as if their heart rate is becoming uncontrolled. . Hypertension - wel l controlled - continue with current medications, continue with no added salt diet. Pt has been encouraged to exercise daily. The pt has been advised to call the office if there are any acute concerns about change in blood pressure readings at home. Hyperlipidemia - pt has been counseled about appropriate diet, exercise, and need for low fat food choices. I have discussed the need for the patient to take medications as prescribed. If the patient has negative side effects from the medication, they are to CALL the office and not abruptly discontinue the medication without discussion with a practitioner in the office. We will check labs in 3-6 months for follow up on the patient's chronic medical problem and to assure normal liver response to medications. Samples of crestor given to patient today . Hypertension - unc ontrolled - the patient's medications have been modified as documented in the visit note. The patient has been counseled to cut back on salt in diet for a no added salt diet, low fat diet, start an exercise program with low weight bearing exercises and higher aerobic activity for heart health. . Fatigue, Snoring disorder, excessive daytime sleepiness - recommended that Don have a sleep study - he did not pass a sleep study done over 7 years ago - but never got a machine for the sleep apnea - it was around the time he had a bypass and "it got lost in the aftermath of his bypass". I have recommended and had staff make a referral for sleep study at the hospital. Diabetes Mellitus - controlled - per recent FSBS reports. I have recommended for the patient to have follow up labs prior to the next office visit. The patient has been instructed to continue with current medications as previously directed, continue with regular FSBS monitoring to assure continued control of diabetes. Pt to call for any acute concerns, complaints, or if the blood glucose readings are starting to become less controlled. . Obesity - chronic issue with this patient. The pt has been counseled about diet changes, calorie restriction, and need to exercise. Pt will RTC in one month for weight check. Diabetes Mellitus - controlled - per recent FSBS reports. I have recommended for the patient to have follow up labs prior to the next office visit. The patient has been instructed to continue with current medications as previously directed, continue with regular FSBS monitoring to assure continued control of diabetes. Pt to call for any acute concerns, complaints, or if the blood glucose readings are starting to become less controlled. I have recommended for the patient to follow more strictly to the diabetic diet as discussed in clinic to allow for greater blood glucose control. Increase activity level - increase aerobic exercise Hyperlipidemia - pt has been counseled about appropriate diet, exercise, and need for low fat food choices. I have discussed the need for the patient to take medications as prescribed. If the patient has negative side effects from the medication, they are to CALL the office and not abruptly discontinue the medication without discussion with a practicioner in the office. We will check labs in 3-6 months for follow up on the patient's chronic medical problem and to assure normal liver response to medications. Pt does not want to start on statin - I will allow for him to try more aggressive exercise - if he does not have improved HDL, then need to consider starting on a statin at least three times a week. He states that he has been counseled by me and Dr. Culver in the past that he needed to be on a statin, but is hesitant to do so as he had myalgias with previous statin use. Hypertension - well controlled - continue with current medications, continue with no added salt diet. Pt has been encouraged to exercise daily. The pt has been advised to call the office if there are any acute concerns about change in blood pressure readings at home. . Hospital follow up - This was a follow up appointment from the patient's hospitalization during which time Dr. Shetty formulated the assessment and plan for the follow up on this patient's medical condition. . Hypertension - wel l controlled - continue with current medications, continue with no added salt diet. Pt has been encouraged to exercise daily. The pt has been advised to call the office if there are any acute concerns about change in blood pressure readings at home. Hyperlipidemia - pt has been counseled about appropriate diet, exercise, and need for low fat food choices. I have discussed the need for the patient to take medications as prescribed. If the patient has negative side effects from the medication, they are to CALL the office and not abruptly discontinue the medication without discussion with a practitioner in the office. We will check labs in 3-6 months for follow up on the patient's chronic medical problem and to assure normal liver response to medications. Edema - pt has been advised to elevate legs to prevent dependent edema, compression has been recommended to help to naturally decrease peripheral edema. Diuretic use has been discussed and pt has been instructed in appropriate use of such medication as necessary to further attempt to reduce peripheral edema. Diabetes Mellitus - controlled - per recent FSBS reports. I have recommended for the patient to have follow up labs prior to the next office visit. The patient has been instructed to continue with current medications as previously directed, continue with regular FSBS monitoring to assure continued control of diabetes. Pt to call for any acute concerns, complaints, or if the blood glucose readings are starting to become less controlled. go back to just one losartan daily hold the fenofibrate (generic tricor) . Hypertension - well controlled - louise nue with current medications, continue with no added salt diet. Pt has been encouraged to exercise daily. The pt has been advised to call the office if there are any acute concerns about change in blood pressure readings at home. Diabetes Mellitus - controlled - per recent FSBS reports. I have recommended for the patient to have follow up labs prior to the next office visit. The patient has been instructed to continue with current medications as previously directed, continue with regular FSBS monitoring to assure continued control of diabetes. Pt to call for any acute concerns, complaints, or if the blood glucose readings are starting to become less controlled. Comment . Diabetes Mellitus - controlled - per recent FSBS reports. I have recommended for the patient to have follow up labs prior to the next office visit. The patient has been instructed to continue with current medications as previously directed, continue with regular FSBS monitoring to assure continued control of diabetes. Pt to call for any acute concerns, complaints, or if the blood glucose readings are starting to become less controlled. Left hip pain - I have recommended a referral to Dr. Salgado for injection bursa at iliac crest. Hypertension - well controlled - continue with current medications, continue with no added salt diet. Pt has been encouraged to exercise daily. The pt has been advised to call the office if there are any acute concerns about change in blood pressure readings at home. Thrush - rx for nystatin swish and swallow. DEXILANT 60MG DAILY SULCRAFATE BEFORE MEALS AND AT BEDTIME CALL IF YOUR SYMPTOMS ARE UNCONTROLLED . Esophageal Reflux - the patient has be en counseled against excessive intake of caffeine, spicy foods, peppermint, and cinnamon - all of which can exacerbate esophageal reflux. The patient is to take medications as prescribed and call the office if the symptoms are not improving. . Hypertension - wel l controlled - continue with current medications, continue with no added salt diet. Pt has been encouraged to exercise daily. The pt has been advised to call the office if there are any acute concerns about change in blood pressure readings at home. Back pain - improving - continue with current treatment - continue with physical therapy. . Hypertension - unc ontrolled - the patient's medications have been modified as documented in the visit note. The patient has been counseled to cut back on salt in diet for a no added salt diet, low fat diet, start an exercise program with low weight bearing exercises and higher aerobic activity for heart health. The patient is to check blood pressure readings as an outpatient and either fax, call, or email the readings to the office next week for practitioner to review. The pt is to call for acute concerns. Pt changed to clonidine patch - stop clonidine pills. Fatigue, Snoring disorder, excessive daytime sleepiness - recommended that Don have a sleep study - he did not pass a sleep study done over 7 years ago - but never got a machine for the sleep apnea - it was around the time he had a bypass and "it got lost in the aftermath of his bypass". I have recommended and had staff make a referral for sleep study at the hospital. Diabetes Mellitus - controlled - per recent FSBS reports. I have recommended for the patient to have follow up labs prior to the next office visit. The patient has been instructed to continue with current medications as previously directed, continue with regular FSBS monitoring to assure continued control of diabetes. Pt to call for any acute concerns, complaints, or if the blood glucose readings are starting to become less controlled. . Hypertension - wel l controlled - continue with current medications, continue with no added salt diet. Pt has been encouraged to exercise daily. The pt has been advised to call the office if there are any acute concerns about change in blood pressure readings at home. Diabetes Mellitus - controlled - per recent FSBS reports. I have recommended for the patient to have follow up labs prior to the next office visit. The patient has been instructed to continue with current medications as previously directed, continue with regular FSBS monitoring to assure continued control of diabetes. Pt to call for any acute concerns, complaints, or if the blood glucose readings are starting to become less controlled. Esophageal Reflux - the patient has been counseled against excessive intake of caffiene, spicy foods, peppermint, and cinnamon - all of which can exacerbate esophageal reflux. The patient is to take medications as prescribed and call the office if the symptoms are not improving. Pt given rx for carafate, pt to call if not improved. refill phenergan wit h codeine cough syrup call if cough does not resolve and we can call in an antbiotic prevnar 13 when you are feeling better . Medicare Exam - today we discussed the patients past history, immunizations, preventative exams/evaluations - colonoscopy, fecal occult blood testing, routine labs for renal function, glucose, cholesterol, osteoporosis evaluations, cardiovascular testing and cancer screenings. We have also discussed mental health and the signs/symptoms of depression. The patient was advised of home safety evaluations and the need to make sure that as the aging process continues, we need to be aware of different ways to make the home a safer place to reside. The patient has also been counseled that exercise is necessary - and of utmost importance as we age to help decrease fall risk and to maintain independence in the home. Today we discussed the need for the patient to create paperwork for Advanced directives as well as for the patient to provide this office with a copy of her DOPA paperwork for health care surrogate. Cough- improving -call if symptoms do not resolve . Hypertension - wel l controlled - continue with current medications, continue with no added salt diet. Pt has been encouraged to exercise daily. The pt has been advised to call the office if there are any acute concerns about change in blood pressure readings at home. 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 . ADMIT FROM CLINIC TO HOSPITAL - PT IS ACUTELY ILL, REQUIRES HOSPITALIZATION. THE PATIENT HAS BEEN EVALUATED IN CLINIC AND THIS STANDS THE HOSPITAL HISTORY AND PHYSICAL EXAMINATION. THE PATIENT HAS BEEN SENT TO THE HOSPITAL WITH WRITTEN ORDERS FOR TREATMENT AND EVALUATION OF THE ACUTE ILLNESS. Pt to be started on rocephin, iv fluids, and will check labs - chem panel, cbc, tsh. . Diabetes Mellitus - controlled - per recent FSBS reports. I have recommended for the patient to have follow up labs prior to the next office visit. The patient has been instructed to continue with current medications as previously directed, continue with regular FSBS monitoring to assure continued control of diabetes. Pt to call for any acute concerns, complaints, or if the blood glucose readings are starting to become less controlled. I have recommended for the patient to follow more strictly to the diabetic diet as discussed in clinic to allow for greater blood glucose control. Increase activity level - increase aerobic exercise Hyperlipidemia - pt has been counseled about appropriate diet, exercise, and need for low fat food choices. I have discussed the need for the patient to take medications as prescribed. If the patient has negative side effects from the medication, they are to CALL the office and not abruptly discontinue the medication without discussion with a practicioner in the office. We will check labs in 3-6 months for follow up on the patient's chronic medical problem and to assure normal liver response to medications. Pt does not want to start on statin - I will allow for him to try more aggressive exercise - if he does not have improved HDL, then need to consider starting on a statin at least three times a week. He states that he has been counseled by me and Dr. Culver in the past that he needed to be on a statin, but is hesitant to do so as he had myalgias with previous statin use. Hypertension - well controlled - continue with current medications, continue with no added salt diet. Pt has been encouraged to exercise daily. The pt has been advised to call the office if there are any acute concerns about change in blood pressure readings at home. . Edema - pt has bee n advised to elevate legs to prevent dependent edema. Diuretic use has been discussed and pt has been instructed in appropriate use of such medication as necessary to further attempt to reduce peripheral edema. On the days he takes diruetic (LASIX) drink an extra glass of orange juice. Hypertension - fairly well controlled - continue with current medications, continue with no added salt diet. Pt has been encouraged to exercise daily. The pt has been advised to call the office if there are any acute concerns about change in blood pressure readings at home. . Hypertension - unc ontrolled - the patient's medications have been modified as documented in the visit note. The patient has been counseled to cut back on salt in diet for a no added salt diet, low fat diet, start an exercise program with low weight bearing exercises and higher aerobic activity for heart health. The patient is to check blood pressure readings as an outpatient and either fax, call, or email the readings to the office next week for practitioner to review. The pt is to call for acute concerns. Anemia - change iron to two days a week. Urge Incontinence - monitor symptoms - hold myrbetric x 1 week - report back to us about symptoms off f the myrbectric and he will follow up on his blood pressure that may be elevated due to his myrbetric Ask Dr. Marie quintanilla ut an ablation on the nerves in your back. Hypertension - well controlled - continue with current medications, continue with no added salt diet. Pt has been encouraged to exercise daily. The pt has been advised to call the office if there are any acute concerns about change in blood pressure readings at home. Diabetes Mellitus - controlled - per recent FSBS reports. I have recommended for the patient to have follow up labs prior to the next office visit. The patient has been instructed to continue with current medications as previously directed, continue with regular FSBS monitoring to assure continued control of diabetes. Pt to call for any acute concerns, complaints, or if the blood glucose readings are starting to become less controlled. Hyperlipidemia - pt has been counseled about appropriate diet, exercise, and need for low fat food choices. I have discussed the need for the patient to take medications as prescribed. If the patient has negative side effects from the medication, they are to CALL the office and not abruptly discontinue the medication without discussion with a practitioner in the office. We will check labs in 3-6 months for follow up on the patient's chronic medical problem and to assure normal liver response to medications. Back pain - discussed with the pt - he needs to talk to his back specialist about a possible nerve ablation. Pt to increase the p epcid to twice daily Pt to keep appt with Dr. Bello on 06/25/13 @10:10AM. Esophageal Reflux - the patient has been counseled against excessive intake of caffiene, spicy foods, peppermint, and cinnamon - all of which can exacerbate esophageal reflux. The patient is to take medications as prescribed and call the office if the symptoms are not improving. Pt to increase the pepcid to twice daily Pt to keep appt with Dr. Bello on 06/25/13 @10:10AM . Hypertension - wel l controlled - continue with current medications, continue with no added salt diet. Pt has been encouraged to exercise daily. The pt has been advised to call the office if there are any acute concerns about change in blood pressure readings at home. Atrial Fibrillation - pt on chronic anticoagulation and is currently rate controlled. The pt is to have labs done as appropriate to monitor medication levels and is to report if they start to feel as if their heart rate is becoming uncontrolled. DM - FSBS fairly well controlled - continue current treatments - monitor symptoms. . Diabetes Mellitus - controlled - per recent FSBS reports. I have recommended for the patient to have follow up labs prior to the next office visit. The patient has been instructed to continue with current medications as previously directed, continue with regular FSBS monitoring to assure continued control of diabetes. Pt to call for any acute concerns, complaints, or if the blood glucose readings are starting to become less controlled. Biceps tendonitis - pt to do exercises as directed, antiinflammatories directed to be taken per RX instructions and pt to call if symptoms are not improved. . Hypertension - wel l controlled - continue with current medications, continue with no added salt diet. Pt has been encouraged to exercise daily. The pt has been advised to call the office if there are any acute concerns about change in blood pressure readings at home. Diabetes Mellitus - controlled - per recent FSBS reports. I have recommended for the patient to have follow up labs prior to the next office visit. The patient has been instructed to continue with current medications as previously directed, continue with regular FSBS monitoring to assure continued control of diabetes. Pt to call for any acute concerns, complaints, or if the blood glucose readings are starting to become less controlled. stop the pravastatin - . Hypertension - well controlled - louise nue with current medications, continue with no added salt diet. Pt has been encouraged to exercise daily. The pt has been advised to call the office if there are any acute concerns about change in blood pressure readings at home. Myalgias - stop pravastatin - continue with coenzyme q10. Monitor symptoms. Urinary frequency - check urinalysis. . Hypertension - wel l controlled - continue with current medications, continue with no added salt diet. Pt has been encouraged to exercise daily. The pt has been advised to call the office if there are any acute concerns about change in blood pressure readings at home. Diabetes Mellitus - controlled - per recent FSBS reports. I have recommended for the patient to have follow up labs prior to the next office visit. The patient has been instructed to continue with current medications as previously directed, continue with regular FSBS monitoring to assure continued control of diabetes. Pt to call for any acute concerns, complaints, or if the blood glucose readings are starting to become less controlled. Abdominal/Flank pain - recommended pt to start stretching exercises for his flank/back pain - pt is not interested in physical therapy at this time. . Right posterior fl ank/rib pain - need to ask Dr. Eros Worley if there is a specific test he would like to see done prior to an appt - question if nerve block would help his pain Hypertension - well controlled - continue with current medications, continue with no added salt diet. Pt has been encouraged to exercise daily. The pt has been advised to call the office if there are any acute concerns about change in blood pressure readings at home. . Hypertension - wel l controlled - continue with current medications, continue with no added salt diet. Pt has been encouraged to exercise daily. The pt has been advised to call the office if there are any acute concerns about change in blood pressure readings at home. Edema - bilateral lower legs - rx for lasix. take a probiotic tati ly while taking the doxycycline . Hypertension - well controlled - louise nue with current medications, continue with no added salt diet. Pt has been encouraged to exercise daily. The pt has been advised to call the office if there are any acute concerns about change in blood pressure readings at home. Atrial Fibrillation - pt on chronic anticoagulation and is currently rate controlled. The pt is to have labs done as appropriate to monitor medication levels and is to report if they start to feel as if their heart rate is becoming uncontrolled. Tick Borne Illness - continue with doxycycline plans - twice daily x 2 weeks, then daily x 1 month then prn symptoms of tick born illness. . Hypertension - wel l controlled - continue with current medications, continue with no added salt diet. Pt has been encouraged to exercise daily. The pt has been advised to call the office if there are any acute concerns about change in blood pressure readings at home. Diabetes Mellitus - controlled - per recent FSBS reports. I have recommended for the patient to have follow up labs prior to the next office visit. The patient has been instructed to continue with current medications as previously directed, continue with regular FSBS monitoring to assure continued control of diabetes. Pt to call for any acute concerns, complaints, or if the blood glucose readings are starting to become less controlled. Sciatica- exercises discussed with the patient, pt to start on steroid at low dose. Pt is to call if the symptoms do not improve or if they worsen. Due to uncontrolled symptoms, I have recommended a referral to [facility] I sent a prescriptio n for doxycycline 100mg twice daily to [facility]-start it this evening Call if you are not better or if any worse. . URI - Pt advised to increase fluids, vitamin C. Discussed natural and expected course of this diagnosis and need to alert me if symtpoms do not follow expected course, or if any worse. RX sent to patient's pharmacy. Allergies - Advised avoidance of allergens if possible, we discussed natural and expected course of this diagnosis and need to alert me if symtpoms do not follow expected course, or if any worse. Recommend claritin or zyrtec daily. PT TO INCREASE LOSAR WAGNER TO 100MG DAILY.. Diabetes Mellitus - controlled - per recent FSBS reports. I have recommended for the patient to have follow up labs prior to the next office visit. The patient has been instructed to continue with current medications as previously directed, continue with regular FSBS monitoring to assure continued control of diabetes. Pt to call for any acute concerns, complaints, or if the blood glucose readings are starting to become less controlled. Hypertension - uncontrolled - the patient's medications have been modified as documented in the visit note. The patient has been counseled to cut back on salt in diet for a no added salt diet, low fat diet, start an exercise program with low weight bearing exercises and higher aerobic activity for heart health. The patient is to check blood pressure readings as an outpatient and either fax, call, or email the readings to the office next week for practicioner to review. The pt is to call for acute concerns. PT TO INCREASE LOSARTAN TO 100MG DAILY. PT TO INCREASE EXERCISE - AEROBIC EXERCISE- TO HELP IMPROVE HDL AND DECREASE ABDOMINAL WEIGHT. . Bronchitis - acute case of bronchitis identified. Pt has been given antibiotics, breathing treatments as appropriate, and pt has been instructed to call if symptoms are not improved, or if symptoms acutely worsen. URI - Pt advised to increase fluids, vitamin C. Discussed natural and expected course of this diagnosis and need to alert me if symtpoms do not follow expected course, or if any worse. RX sent to patient's pharmacy. . Hypertension - wel l controlled - continue with current medications, continue with no added salt diet. Pt has been encouraged to exercise daily. The pt has been advised to call the office if there are any acute concerns about change in blood pressure readings at home. Co-Enzyme Q 10 - or Co Q 10 - take daily - to help relieve shoulder pain. Increase antioxidants in diet (blue villegas, pomegranate). . In Grown toenail - sees Dr Mauricio next week, until then soak toe in Epson salt water at night and after put cotton under toenail to help relieve pressure. Reflux - Take protonix in the evening for 1 week see if symptoms resolve, if not increase to twice a day for 1 week, call office to let know if symptoms are improved or not. Co-Enzyme Q 10 - or Co Q 10 - take daily - to help relieve shoulder pain. Increase antioxidants in diet (blue villegas, pomegranate). . Diabetes Mellitus - controlled - per recent FSBS reports. I have recommended for the patient to have follow up labs prior to the next office visit. The patient has been instructed to continue with current medications as previously directed, continue with regular FSBS monitoring to assure continued control of diabetes. Pt to call for any acute concerns, complaints, or if the blood glucose readings are starting to become less controlled. Noflu shots available, recommend pt to go to [facility] or [facility] for the shot. Kidney stone - keep appt with Dr. Hewitt for planned procedure for removal of kidney stone. . Chestwall pain - r ecommended use of topical antiinflammatory/topical aspercreme. HTN - not well controlled today - but pt has reports of good blood pressure control. DM- controlled per patient report. . Tic Bite - improvi ng - rx for blue goo TYLENOL 2 PILLS THRE E TIMES DAILY X 1 WEEK -TAKE WITH FOOD CHECK LABS LET ME KNOW IF YOUR JOINT PAIN DOES NOT IMPROVE CHECK LABS . Edema - pt has been advised to elevate legs to prevent dependent edema, compression has been recommended to help to naturally decrease peripheral edema. Diuretic use has been discussed and pt has been instructed in appropriate use of such medication as necessary to further attempt to reduce peripheral edema. Hypertension - well controlled - continue with current medications, continue with no added salt diet. Pt has been encouraged to exercise daily. The pt has been advised to call the office if there are any acute concerns about change in blood pressure readings at home. Joint pain -use tylenol as directed-check labs- call if pain does not resolve DM-check labs . URI - Pt advised t o increase fluids, vitamin C. Discussed natural and expected course of this diagnosis and need to alert me if symptoms do not follow expected course, or if any worse. RX sent to patient's pharmacy. change diltiazem fro m 180mg - new dose is 120mg - start this tomorrow. tonight - if heart rate is at or below 60, decrease the metoprolol to 50mg. new parameters if heart rate is at or below 55, decrease dose of metoprolol from 100mg down to 50mg. call if heart rate is above 100, or below 50. . Hypertension - well controlled - louise nue with current medications, continue with no added salt diet. Pt has been encouraged to exercise daily. The pt has been advised to call the office if there are any acute concerns about change in blood pressure readings at home. Atrial Fibrillation - pt on chronic anticoagulation and is currently rate controlled. The pt is to have labs done as appropriate to monitor medication levels and is to report if they start to feel as if their heart rate is becoming uncontrolled. change diltiazem from 180mg - new dose is 120mg - start this tomorrow. tonight - if heart rate is at or below 60, decrease the metoprolol to 50mg. new parameters if heart rate is at or below 55, decrease dose of metoprolol from 100mg down to 50mg. call if heart rate is above 100, or below 50. Fatigue - improved since stopping amiodarone get the dissolving b 12 tabs - and okay to take the b vitamins with biotin . Recurrent urinary tract infection - mo nitor symptoms - pt has had full treatment for infection and is to let us know if infection symptoms return. . Hypertension - wel l controlled - continue with current medications, continue with no added salt diet. Pt has been encouraged to exercise daily. The pt has been advised to call the office if there are any acute concerns about change in blood pressure readings at home. Diabetes Mellitus - controlled - per recent FSBS reports. I have recommended for the patient to have follow up labs prior to the next office visit. The patient has been instructed to continue with current medications as previously directed, continue with regular FSBS monitoring to assure continued control of diabetes. Pt to call for any acute concerns, complaints, or if the blood glucose readings are starting to become less controlled. Cough - recent dx of pneumonia - pt sent to hospital for xray. extension of antibiotics - doxycycline 100mg bid x 7 more days. . Hypertension - wel l controlled - continue with current medications, continue with no added salt diet. Pt has been encouraged to exercise daily. The pt has been advised to call the office if there are any acute concerns about change in blood pressure readings at home. Myalgias - improved - no change in current management go back to just one losartan daily hold the fenofibrate (generic tricor) . Hypertension - well controlled - louise nue with current medications, continue with no added salt diet. Pt has been encouraged to exercise daily. The pt has been advised to call the office if there are any acute concerns about change in blood pressure readings at home. Diabetes Mellitus - controlled - per recent FSBS reports. I have recommended for the patient to have follow up labs prior to the next office visit. The patient has been instructed to continue with current medications as previously directed, continue with regular FSBS monitoring to assure continued control of diabetes. Pt to call for any acute concerns, complaints, or if the blood glucose readings are starting to become less controlled. tiger balm - muscle rub . Hypertension - well controlled - louise nue with current medications, continue with no added salt diet. Pt has been encouraged to exercise daily. The pt has been advised to call the office if there are any acute concerns about change in blood pressure readings at home. Atrial Fibrillation - pt on chronic anticoagulation and is currently rate controlled. The pt is to have labs done as appropriate to monitor medication levels and is to report if they start to feel as if their heart rate is becoming uncontrolled. Back pain - recommended muscle rub . Hypertension - wel l controlled - continue with current medications, continue with no added salt diet. Pt has been encouraged to exercise daily. The pt has been advised to call the office if there are any acute concerns about change in blood pressure readings at home. Diabetes Mellitus - controlled - per recent FSBS reports. I have recommended for the patient to have follow up labs prior to the next office visit. The patient has been instructed to continue with current medications as previously directed, continue with regular FSBS monitoring to assure continued control of diabetes. Pt to call for any acute concerns, complaints, or if the blood glucose readings are starting to become less controlled. Chest xray at the [facility]. Bronchitis-cough - acute case of bronchitis identified. Pt has been given antibiotics, breathing treatments as appropriate, and pt has been instructed to call if symptoms are not improved, or if symptoms acutely worsen. sample of albuterol inhaler provided, demonstrated and instructed on use. Plan for chest xray today at the hospital. pt to keep on losartan bystolic and start on clonidine 0.1mg twice daily. . Hypertension - uncontrolled - the elvis ent's medications have been modified as documented in the visit note. The patient has been counseled to cut back on salt in diet for a no added salt diet, low fat diet, start an exercise program with low weight bearing exercises and higher aerobic activity for heart health. The patient is to check blood pressure readings as an outpatient and either fax, call, or email the readings to the office next week for practitioner to review. The pt is to call for acute concerns. pt to keep on losartan bystolic and start on clonidine 0.1mg twice daily. Diabetes Mellitus - controlled - per recent FSBS reports. I have recommended for the patient to have follow up labs prior to the next office visit. The patient has been instructed to continue with current medications as previously directed, continue with regular FSBS monitoring to assure continued control of diabetes. Pt to call for any acute concerns, complaints, or if the blood glucose readings are starting to become less controlled. . Bradycardia - pt t o maintain current medication - I have recommended his to check his blood pressure and heart rate at 1 hour, 1.5 hour and 2 hour post intake of toprol. IF his heart rate is at or below 45, we need to consider decreasing his toprol to 25mg bid. Hypertension - well controlled - continue with current medications, continue with no added salt diet. Pt has been encouraged to exercise daily. The pt has been advised to call the office if there are any acute concerns about change in blood pressure readings at home. flu shot given in clinic today . Right hip pain -di scussed with Dr Salgado's office-okay for injection today -instructed patient to follow up with them if pain does not resolve-kenalog injection today in the office- recommend heat this evening - instructed patient to call if symptoms do not improve or if any worse. . Diabetes Mellitus - controlled - per recent FSBS reports. I have recommended for the patient to have follow up labs prior to the next office visit. The patient has been instructed to continue with current medications as previously directed, continue with regular FSBS monitoring to assure continued control of diabetes. Pt to call for any acute concerns, complaints, or if the blood glucose readings are starting to become less controlled. Hypertension - well controlled - continue with current medications, continue with no added salt diet. Pt has been encouraged to exercise daily. The pt has been advised to call the office if there are any acute concerns about change in blood pressure readings at home. . Continued fatigue, malaise post hospitalization - pt to expect some fatigue - however, will check chem panel, cbc since he had neutropenia in hospital and elevated creatinine and liver enzymes. Hypertension - not optimally controlled but pt to continue with current medications, continue with no added salt diet. Pt has been encouraged to exercise daily. The pt has been advised to call the office if there are any acute concerns about change in blood pressure readings at home. Diabetes Mellitus - controlled - per recent FSBS reports. I have recommended for the patient to have follow up labs prior to the next office visit. The patient has been instructed to continue with current medications as previously directed, continue with regular FSBS monitoring to assure continued control of diabetes. Pt to call for any acute concerns, complaints, or if the blood glucose readings are starting to become less controlled. . Hypertension - wel l controlled - continue with current medications, continue with no added salt diet. Pt has been encouraged to exercise daily. The pt has been advised to call the office if there are any acute concerns about change in blood pressure readings at home. Atrial Fibrillation - pt on chronic anticoagulation and is currently rate controlled. The pt is to have labs done as appropriate to monitor medication levels and is to report if they start to feel as if their heart rate is becoming uncontrolled. . Hypertension - wel l controlled - continue with current medications, continue with no added salt diet. Pt has been encouraged to exercise daily. The pt has been advised to call the office if there are any acute concerns about change in blood pressure readings at home. Hyperlipidemia - pt has been counseled about appropriate diet, exercise, and need for low fat food choices. I have discussed the need for the patient to take medications as prescribed. If the patient has negative side effects from the medication, they are to CALL the office and not abruptly discontinue the medication without discussion with a practitioner in the office. We will check labs in 3-6 months for follow up on the patient's chronic medical problem and to assure normal liver response to medications. Samples of crestor given to patient today . Hypertension - unc ontrolled - the patient's medications have been modified as documented in the visit note. The patient has been counseled to cut back on salt in diet for a no added salt diet, low fat diet, start an exercise program with low weight bearing exercises and higher aerobic activity for heart health. . Fatigue, Snoring disorder, excessive daytime sleepiness - recommended that Don have a sleep study - he did not pass a sleep study done over 7 years ago - but never got a machine for the sleep apnea - it was around the time he had a bypass and "it got lost in the aftermath of his bypass". I have recommended and had staff make a referral for sleep study at the hospital. Diabetes Mellitus - controlled - per recent FSBS reports. I have recommended for the patient to have follow up labs prior to the next office visit. The patient has been instructed to continue with current medications as previously directed, continue with regular FSBS monitoring to assure continued control of diabetes. Pt to call for any acute concerns, complaints, or if the blood glucose readings are starting to become less controlled. . Obesity - chronic issue with this patient. The pt has been counseled about diet changes, calorie restriction, and need to exercise. Pt will RTC in one month for weight check. Diabetes Mellitus - controlled - per recent FSBS reports. I have recommended for the patient to have follow up labs prior to the next office visit. The patient has been instructed to continue with current medications as previously directed, continue with regular FSBS monitoring to assure continued control of diabetes. Pt to call for any acute concerns, complaints, or if the blood glucose readings are starting to become less controlled. I have recommended for the patient to follow more strictly to the diabetic diet as discussed in clinic to allow for greater blood glucose control. Increase activity level - increase aerobic exercise Hyperlipidemia - pt has been counseled about appropriate diet, exercise, and need for low fat food choices. I have discussed the need for the patient to take medications as prescribed. If the patient has negative side effects from the medication, they are to CALL the office and not abruptly discontinue the medication without discussion with a practicioner in the office. We will check labs in 3-6 months for follow up on the patient's chronic medical problem and to assure normal liver response to medications. Pt does not want to start on statin - I will allow for him to try more aggressive exercise - if he does not have improved HDL, then need to consider starting on a statin at least three times a week. He states that he has been counseled by me and Dr. Culver in the past that he needed to be on a statin, but is hesitant to do so as he had myalgias with previous statin use. Hypertension - well controlled - continue with current medications, continue with no added salt diet. Pt has been encouraged to exercise daily. The pt has been advised to call the office if there are any acute concerns about change in blood pressure readings at home. . Hospital follow up - This was a follow up appointment from the patient's hospitalization during which time Dr. Shetty formulated the assessment and plan for the follow up on this patient's medical condition. . Hypertension - wel l controlled - continue with current medications, continue with no added salt diet. Pt has been encouraged to exercise daily. The pt has been advised to call the office if there are any acute concerns about change in blood pressure readings at home. Hyperlipidemia - pt has been counseled about appropriate diet, exercise, and need for low fat food choices. I have discussed the need for the patient to take medications as prescribed. If the patient has negative side effects from the medication, they are to CALL the office and not abruptly discontinue the medication without discussion with a practitioner in the office. We will check labs in 3-6 months for follow up on the patient's chronic medical problem and to assure normal liver response to medications. Edema - pt has been advised to elevate legs to prevent dependent edema, compression has been recommended to help to naturally decrease peripheral edema. Diuretic use has been discussed and pt has been instructed in appropriate use of such medication as necessary to further attempt to reduce peripheral edema. Diabetes Mellitus - controlled - per recent FSBS reports. I have recommended for the patient to have follow up labs prior to the next office visit. The patient has been instructed to continue with current medications as previously directed, continue with regular FSBS monitoring to assure continued control of diabetes. Pt to call for any acute concerns, complaints, or if the blood glucose readings are starting to become less controlled. Comment . Edema - pt has bee n advised to elevate legs to prevent dependent edema. Diuretic use has been discussed and pt has been instructed in appropriate use of such medication as necessary to further attempt to reduce peripheral edema. On the days he takes diruetic (LASIX) drink an extra glass of orange juice. Hypertension - fairly well controlled - continue with current medications, continue with no added salt diet. Pt has been encouraged to exercise daily. The pt has been advised to call the office if there are any acute concerns about change in blood pressure readings at home. Ask Dr. Marie quintanilla ut an ablation on the nerves in your back. Hypertension - well controlled - continue with current medications, continue with no added salt diet. Pt has been encouraged to exercise daily. The pt has been advised to call the office if there are any acute concerns about change in blood pressure readings at home. Diabetes Mellitus - controlled - per recent FSBS reports. I have recommended for the patient to have follow up labs prior to the next office visit. The patient has been instructed to continue with current medications as previously directed, continue with regular FSBS monitoring to assure continued control of diabetes. Pt to call for any acute concerns, complaints, or if the blood glucose readings are starting to become less controlled. Hyperlipidemia - pt has been counseled about appropriate diet, exercise, and need for low fat food choices. I have discussed the need for the patient to take medications as prescribed. If the patient has negative side effects from the medication, they are to CALL the office and not abruptly discontinue the medication without discussion with a practitioner in the office. We will check labs in 3-6 months for follow up on the patient's chronic medical problem and to assure normal liver response to medications. Back pain - discussed with the pt - he needs to talk to his back specialist about a possible nerve ablation. . Hypertension - unc ontrolled - the patient's medications have been modified as documented in the visit note. The patient has been counseled to cut back on salt in diet for a no added salt diet, low fat diet, start an exercise program with low weight bearing exercises and higher aerobic activity for heart health. The patient is to check blood pressure readings as an outpatient and either fax, call, or email the readings to the office next week for practitioner to review. The pt is to call for acute concerns. Anemia - change iron to two days a week. Urge Incontinence - monitor symptoms - hold myrbetric x 1 week - report back to us about symptoms off f the myrbectric and he will follow up on his blood pressure that may be elevated due to his myrbetric . Diabetes Mellitus - controlled - per recent FSBS reports. I have recommended for the patient to have follow up labs prior to the next office visit. The patient has been instructed to continue with current medications as previously directed, continue with regular FSBS monitoring to assure continued control of diabetes. Pt to call for any acute concerns, complaints, or if the blood glucose readings are starting to become less controlled. I have recommended for the patient to follow more strictly to the diabetic diet as discussed in clinic to allow for greater blood glucose control. Increase activity level - increase aerobic exercise Hyperlipidemia - pt has been counseled about appropriate diet, exercise, and need for low fat food choices. I have discussed the need for the patient to take medications as prescribed. If the patient has negative side effects from the medication, they are to CALL the office and not abruptly discontinue the medication without discussion with a practicioner in the office. We will check labs in 3-6 months for follow up on the patient's chronic medical problem and to assure normal liver response to medications. Pt does not want to start on statin - I will allow for him to try more aggressive exercise - if he does not have improved HDL, then need to consider starting on a statin at least three times a week. He states that he has been counseled by me and Dr. Culver in the past that he needed to be on a statin, but is hesitant to do so as he had myalgias with previous statin use. Hypertension - well controlled - continue with current medications, continue with no added salt diet. Pt has been encouraged to exercise daily. The pt has been advised to call the office if there are any acute concerns about change in blood pressure readings at home. . ADMIT FROM CLINIC TO HOSPITAL - PT IS ACUTELY ILL, REQUIRES HOSPITALIZATION. THE PATIENT HAS BEEN EVALUATED IN CLINIC AND THIS STANDS THE HOSPITAL HISTORY AND PHYSICAL EXAMINATION. THE PATIENT HAS BEEN SENT TO THE HOSPITAL WITH WRITTEN ORDERS FOR TREATMENT AND EVALUATION OF THE ACUTE ILLNESS. Pt to be started on rocephin, iv fluids, and will check labs - chem panel, cbc, tsh. . Hypertension - wel l controlled - continue with current medications, continue with no added salt diet. Pt has been encouraged to exercise daily. The pt has been advised to call the office if there are any acute concerns about change in blood pressure readings at home. 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 refill phenergan wit h codeine cough syrup call if cough does not resolve and we can call in an antbiotic prevnar 13 when you are feeling better . Medicare Exam - today we discussed the patients past history, immunizations, preventative exams/evaluations - colonoscopy, fecal occult blood testing, routine labs for renal function, glucose, cholesterol, osteoporosis evaluations, cardiovascular testing and cancer screenings. We have also discussed mental health and the signs/symptoms of depression. The patient was advised of home safety evaluations and the need to make sure that as the aging process continues, we need to be aware of different ways to make the home a safer place to reside. The patient has also been counseled that exercise is necessary - and of utmost importance as we age to help decrease fall risk and to maintain independence in the home. Today we discussed the need for the patient to create paperwork for Advanced directives as well as for the patient to provide this office with a copy of her DOPA paperwork for health care surrogate. Cough- improving -call if symptoms do not resolve . Hypertension - wel l controlled - continue with current medications, continue with no added salt diet. Pt has been encouraged to exercise daily. The pt has been advised to call the office if there are any acute concerns about change in blood pressure readings at home. Diabetes Mellitus - controlled - per recent FSBS reports. I have recommended for the patient to have follow up labs prior to the next office visit. The patient has been instructed to continue with current medications as previously directed, continue with regular FSBS monitoring to assure continued control of diabetes. Pt to call for any acute concerns, complaints, or if the blood glucose readings are starting to become less controlled. Esophageal Reflux - the patient has been counseled against excessive intake of caffiene, spicy foods, peppermint, and cinnamon - all of which can exacerbate esophageal reflux. The patient is to take medications as prescribed and call the office if the symptoms are not improving. Pt given rx for carafate, pt to call if not improved. . Hypertension - unc ontrolled - the patient's medications have been modified as documented in the visit note. The patient has been counseled to cut back on salt in diet for a no added salt diet, low fat diet, start an exercise program with low weight bearing exercises and higher aerobic activity for heart health. The patient is to check blood pressure readings as an outpatient and either fax, call, or email the readings to the office next week for practitioner to review. The pt is to call for acute concerns. Pt changed to clonidine patch - stop clonidine pills. Fatigue, Snoring disorder, excessive daytime sleepiness - recommended that Don have a sleep study - he did not pass a sleep study done over 7 years ago - but never got a machine for the sleep apnea - it was around the time he had a bypass and "it got lost in the aftermath of his bypass". I have recommended and had staff make a referral for sleep study at the hospital. Diabetes Mellitus - controlled - per recent FSBS reports. I have recommended for the patient to have follow up labs prior to the next office visit. The patient has been instructed to continue with current medications as previously directed, continue with regular FSBS monitoring to assure continued control of diabetes. Pt to call for any acute concerns, complaints, or if the blood glucose readings are starting to become less controlled. . Hypertension - wel l controlled - continue with current medications, continue with no added salt diet. Pt has been encouraged to exercise daily. The pt has been advised to call the office if there are any acute concerns about change in blood pressure readings at home. Back pain - improving - continue with current treatment - continue with physical therapy. DEXILANT 60MG DAILY SULCRAFATE BEFORE MEALS AND AT BEDTIME CALL IF YOUR SYMPTOMS ARE UNCONTROLLED . Esophageal Reflux - the patient has be en counseled against excessive intake of caffeine, spicy foods, peppermint, and cinnamon - all of which can exacerbate esophageal reflux. The patient is to take medications as prescribed and call the office if the symptoms are not improving. . Diabetes Mellitus - controlled - per recent FSBS reports. I have recommended for the patient to have follow up labs prior to the next office visit. The patient has been instructed to continue with current medications as previously directed, continue with regular FSBS monitoring to assure continued control of diabetes. Pt to call for any acute concerns, complaints, or if the blood glucose readings are starting to become less controlled. Left hip pain - I have recommended a referral to Dr. Salgado for injection bursa at iliac crest. Hypertension - well controlled - continue with current medications, continue with no added salt diet. Pt has been encouraged to exercise daily. The pt has been advised to call the office if there are any acute concerns about change in blood pressure readings at home. Thrush - rx for nystatin swish and swallow. . Right posterior fl ank/rib pain - need to ask Dr. Eros Worley if there is a specific test he would like to see done prior to an appt - question if nerve block would help his pain Hypertension - well controlled - continue with current medications, continue with no added salt diet. Pt has been encouraged to exercise daily. The pt has been advised to call the office if there are any acute concerns about change in blood pressure readings at home. . Hypertension - wel l controlled - continue with current medications, continue with no added salt diet. Pt has been encouraged to exercise daily. The pt has been advised to call the office if there are any acute concerns about change in blood pressure readings at home. Diabetes Mellitus - controlled - per recent FSBS reports. I have recommended for the patient to have follow up labs prior to the next office visit. The patient has been instructed to continue with current medications as previously directed, continue with regular FSBS monitoring to assure continued control of diabetes. Pt to call for any acute concerns, complaints, or if the blood glucose readings are starting to become less controlled. Abdominal/Flank pain - recommended pt to start stretching exercises for his flank/back pain - pt is not interested in physical therapy at this time. stop the pravastatin - . Hypertension - well controlled - louise nue with current medications, continue with no added salt diet. Pt has been encouraged to exercise daily. The pt has been advised to call the office if there are any acute concerns about change in blood pressure readings at home. Myalgias - stop pravastatin - continue with coenzyme q10. Monitor symptoms. Urinary frequency - check urinalysis. . Hypertension - wel l controlled - continue with current medications, continue with no added salt diet. Pt has been encouraged to exercise daily. The pt has been advised to call the office if there are any acute concerns about change in blood pressure readings at home. Diabetes Mellitus - controlled - per recent FSBS reports. I have recommended for the patient to have follow up labs prior to the next office visit. The patient has been instructed to continue with current medications as previously directed, continue with regular FSBS monitoring to assure continued control of diabetes. Pt to call for any acute concerns, complaints, or if the blood glucose readings are starting to become less controlled. Cough - recent dx of pneumonia - pt sent to hospital for xray. extension of antibiotics - doxycycline 100mg bid x 7 more days. . Hypertension - wel l controlled - continue with current medications, continue with no added salt diet. Pt has been encouraged to exercise daily. The pt has been advised to call the office if there are any acute concerns about change in blood pressure readings at home. Diabetes Mellitus - controlled - per recent FSBS reports. I have recommended for the patient to have follow up labs prior to the next office visit. The patient has been instructed to continue with current medications as previously directed, continue with regular FSBS monitoring to assure continued control of diabetes. Pt to call for any acute concerns, complaints, or if the blood glucose readings are starting to become less controlled. . Diabetes Mellitus - controlled - per recent FSBS reports. I have recommended for the patient to have follow up labs prior to the next office visit. The patient has been instructed to continue with current medications as previously directed, continue with regular FSBS monitoring to assure continued control of diabetes. Pt to call for any acute concerns, complaints, or if the blood glucose readings are starting to become less controlled. Biceps tendonitis - pt to do exercises as directed, antiinflammatories directed to be taken per RX instructions and pt to call if symptoms are not improved. . Hypertension - wel l controlled - continue with current medications, continue with no added salt diet. Pt has been encouraged to exercise daily. The pt has been advised to call the office if there are any acute concerns about change in blood pressure readings at home. Atrial Fibrillation - pt on chronic anticoagulation and is currently rate controlled. The pt is to have labs done as appropriate to monitor medication levels and is to report if they start to feel as if their heart rate is becoming uncontrolled. DM - FSBS fairly well controlled - continue current treatments - monitor symptoms. Pt to increase the p epcid to twice daily Pt to keep appt with Dr. Bello on 06/25/13 @10:10AM. Esophageal Reflux - the patient has been counseled against excessive intake of caffiene, spicy foods, peppermint, and cinnamon - all of which can exacerbate esophageal reflux. The patient is to take medications as prescribed and call the office if the symptoms are not improving. Pt to increase the pepcid to twice daily Pt to keep appt with Dr. Bello on 06/25/13 @10:10AM . Hypertension - wel l controlled - continue with current medications, continue with no added salt diet. Pt has been encouraged to exercise daily. The pt has been advised to call the office if there are any acute concerns about change in blood pressure readings at home. Edema - bilateral lower legs - rx for lasix. take a probiotic tati ly while taking the doxycycline . Hypertension - well controlled - louise nue with current medications, continue with no added salt diet. Pt has been encouraged to exercise daily. The pt has been advised to call the office if there are any acute concerns about change in blood pressure readings at home. Atrial Fibrillation - pt on chronic anticoagulation and is currently rate controlled. The pt is to have labs done as appropriate to monitor medication levels and is to report if they start to feel as if their heart rate is becoming uncontrolled. Tick Borne Illness - continue with doxycycline plans - twice daily x 2 weeks, then daily x 1 month then prn symptoms of tick born illness. . Hypertension - wel l controlled - continue with current medications, continue with no added salt diet. Pt has been encouraged to exercise daily. The pt has been advised to call the office if there are any acute concerns about change in blood pressure readings at home. Diabetes Mellitus - controlled - per recent FSBS reports. I have recommended for the patient to have follow up labs prior to the next office visit. The patient has been instructed to continue with current medications as previously directed, continue with regular FSBS monitoring to assure continued control of diabetes. Pt to call for any acute concerns, complaints, or if the blood glucose readings are starting to become less controlled. Sciatica- exercises discussed with the patient, pt to start on steroid at low dose. Pt is to call if the symptoms do not improve or if they worsen. Due to uncontrolled symptoms, I have recommended a referral to [facility] I sent a prescriptio n for doxycycline 100mg twice daily to [facility]-start it this evening Call if you are not better or if any worse. . URI - Pt advised to increase fluids, vitamin C. Discussed natural and expected course of this diagnosis and need to alert me if symtpoms do not follow expected course, or if any worse. RX sent to patient's pharmacy. Allergies - Advised avoidance of allergens if possible, we discussed natural and expected course of this diagnosis and need to alert me if symtpoms do not follow expected course, or if any worse. Recommend claritin or zyrtec daily. PT TO INCREASE LOSAR WAGNER TO 100MG DAILY.. Diabetes Mellitus - controlled - per recent FSBS reports. I have recommended for the patient to have follow up labs prior to the next office visit. The patient has been instructed to continue with current medications as previously directed, continue with regular FSBS monitoring to assure continued control of diabetes. Pt to call for any acute concerns, complaints, or if the blood glucose readings are starting to become less controlled. Hypertension - uncontrolled - the patient's medications have been modified as documented in the visit note. The patient has been counseled to cut back on salt in diet for a no added salt diet, low fat diet, start an exercise program with low weight bearing exercises and higher aerobic activity for heart health. The patient is to check blood pressure readings as an outpatient and either fax, call, or email the readings to the office next week for practicioner to review. The pt is to call for acute concerns. PT TO INCREASE LOSARTAN TO 100MG DAILY. PT TO INCREASE EXERCISE - AEROBIC EXERCISE- TO HELP IMPROVE HDL AND DECREASE ABDOMINAL WEIGHT. . Bronchitis - acute case of bronchitis identified. Pt has been given antibiotics, breathing treatments as appropriate, and pt has been instructed to call if symptoms are not improved, or if symptoms acutely worsen. URI - Pt advised to increase fluids, vitamin C. Discussed natural and expected course of this diagnosis and need to alert me if symtpoms do not follow expected course, or if any worse. RX sent to patient's pharmacy. . Hypertension - wel l controlled - continue with current medications, continue with no added salt diet. Pt has been encouraged to exercise daily. The pt has been advised to call the office if there are any acute concerns about change in blood pressure readings at home. Co-Enzyme Q 10 - or Co Q 10 - take daily - to help relieve shoulder pain. Increase antioxidants in diet (blue villegas, pomegranate). . In Grown toenail - sees Dr Mauricio next week, until then soak toe in Epson salt water at night and after put cotton under toenail to help relieve pressure. Reflux - Take protonix in the evening for 1 week see if symptoms resolve, if not increase to twice a day for 1 week, call office to let know if symptoms are improved or not. Co-Enzyme Q 10 - or Co Q 10 - take daily - to help relieve shoulder pain. Increase antioxidants in diet (blue villegas, pomegranate). . Diabetes Mellitus - controlled - per recent FSBS reports. I have recommended for the patient to have follow up labs prior to the next office visit. The patient has been instructed to continue with current medications as previously directed, continue with regular FSBS monitoring to assure continued control of diabetes. Pt to call for any acute concerns, complaints, or if the blood glucose readings are starting to become less controlled. Noflu shots available, recommend pt to go to [facility] or [facility] for the shot. Kidney stone - keep appt with Dr. Hewitt for planned procedure for removal of kidney stone. . Chestwall pain - r ecommended use of topical antiinflammatory/topical aspercreme. HTN - not well controlled today - but pt has reports of good blood pressure control. DM- controlled per patient report. . Tic Bite - improvi ng - rx for blue goo TYLENOL 2 PILLS THRE E TIMES DAILY X 1 WEEK -TAKE WITH FOOD CHECK LABS LET ME KNOW IF YOUR JOINT PAIN DOES NOT IMPROVE CHECK LABS . Edema - pt has been advised to elevate legs to prevent dependent edema, compression has been recommended to help to naturally decrease peripheral edema. Diuretic use has been discussed and pt has been instructed in appropriate use of such medication as necessary to further attempt to reduce peripheral edema. Hypertension - well controlled - continue with current medications, continue with no added salt diet. Pt has been encouraged to exercise daily. The pt has been advised to call the office if there are any acute concerns about change in blood pressure readings at home. Joint pain -use tylenol as directed-check labs- call if pain does not resolve DM-check labs . URI - Pt advised t o increase fluids, vitamin C. Discussed natural and expected course of this diagnosis and need to alert me if symptoms do not follow expected course, or if any worse. RX sent to patient's pharmacy. change diltiazem fro m 180mg - new dose is 120mg - start this tomorrow. tonight - if heart rate is at or below 60, decrease the metoprolol to 50mg. new parameters if heart rate is at or below 55, decrease dose of metoprolol from 100mg down to 50mg. call if heart rate is above 100, or below 50. . Hypertension - well controlled - louise nue with current medications, continue with no added salt diet. Pt has been encouraged to exercise daily. The pt has been advised to call the office if there are any acute concerns about change in blood pressure readings at home. Atrial Fibrillation - pt on chronic anticoagulation and is currently rate controlled. The pt is to have labs done as appropriate to monitor medication levels and is to report if they start to feel as if their heart rate is becoming uncontrolled. change diltiazem from 180mg - new dose is 120mg - start this tomorrow. tonight - if heart rate is at or below 60, decrease the metoprolol to 50mg. new parameters if heart rate is at or below 55, decrease dose of metoprolol from 100mg down to 50mg. call if heart rate is above 100, or below 50. Fatigue - improved since stopping amiodarone get the dissolving b 12 tabs - and okay to take the b vitamins with biotin . Recurrent urinary tract infection - mo nitor symptoms - pt has had full treatment for infection and is to let us know if infection symptoms return. . Hypertension - wel l controlled - continue with current medications, continue with no added salt diet. Pt has been encouraged to exercise daily. The pt has been advised to call the office if there are any acute concerns about change in blood pressure readings at home. Myalgias - improved - no change in current management go back to just one losartan daily hold the fenofibrate (generic tricor) . Hypertension - well controlled - louise nue with current medications, continue with no added salt diet. Pt has been encouraged to exercise daily. The pt has been advised to call the office if there are any acute concerns about change in blood pressure readings at home. Diabetes Mellitus - controlled - per recent FSBS reports. I have recommended for the patient to have follow up labs prior to the next office visit. The patient has been instructed to continue with current medications as previously directed, continue with regular FSBS monitoring to assure continued control of diabetes. Pt to call for any acute concerns, complaints, or if the blood glucose readings are starting to become less controlled. tiger balm - muscle rub . Hypertension - well controlled - luoise nue with current medications, continue with no added salt diet. Pt has been encouraged to exercise daily. The pt has been advised to call the office if there are any acute concerns about change in blood pressure readings at home. Atrial Fibrillation - pt on chronic anticoagulation and is currently rate controlled. The pt is to have labs done as appropriate to monitor medication levels and is to report if they start to feel as if their heart rate is becoming uncontrolled. Back pain - recommended muscle rub . Hypertension - wel l controlled - continue with current medications, continue with no added salt diet. Pt has been encouraged to exercise daily. The pt has been advised to call the office if there are any acute concerns about change in blood pressure readings at home. Diabetes Mellitus - controlled - per recent FSBS reports. I have recommended for the patient to have follow up labs prior to the next office visit. The patient has been instructed to continue with current medications as previously directed, continue with regular FSBS monitoring to assure continued control of diabetes. Pt to call for any acute concerns, complaints, or if the blood glucose readings are starting to become less controlled. Chest xray at the [facility]. Bronchitis-cough - acute case of bronchitis identified. Pt has been given antibiotics, breathing treatments as appropriate, and pt has been instructed to call if symptoms are not improved, or if symptoms acutely worsen. sample of albuterol inhaler provided, demonstrated and instructed on use. Plan for chest xray today at the hospital. pt to keep on losartan bystolic and start on clonidine 0.1mg twice daily. . Hypertension - uncontrolled - the elvis ent's medications have been modified as documented in the visit note. The patient has been counseled to cut back on salt in diet for a no added salt diet, low fat diet, start an exercise program with low weight bearing exercises and higher aerobic activity for heart health. The patient is to check blood pressure readings as an outpatient and either fax, call, or email the readings to the office next week for practitioner to review. The pt is to call for acute concerns. pt to keep on losartan bystolic and start on clonidine 0.1mg twice daily. Diabetes Mellitus - controlled - per recent FSBS reports. I have recommended for the patient to have follow up labs prior to the next office visit. The patient has been instructed to continue with current medications as previously directed, continue with regular FSBS monitoring to assure continued control of diabetes. Pt to call for any acute concerns, complaints, or if the blood glucose readings are starting to become less controlled. . Bradycardia - pt t o maintain current medication - I have recommended his to check his blood pressure and heart rate at 1 hour, 1.5 hour and 2 hour post intake of toprol. IF his heart rate is at or below 45, we need to consider decreasing his toprol to 25mg bid. Hypertension - well controlled - continue with current medications, continue with no added salt diet. Pt has been encouraged to exercise daily. The pt has been advised to call the office if there are any acute concerns about change in blood pressure readings at home. flu shot given in clinic today . Right hip pain -di scussed with Dr Salgado's office-okay for injection today -instructed patient to follow up with them if pain does not resolve-kenalog injection today in the office- recommend heat this evening - instructed patient to call if symptoms do not improve or if any worse. . Diabetes Mellitus - controlled - per recent FSBS reports. I have recommended for the patient to have follow up labs prior to the next office visit. The patient has been instructed to continue with current medications as previously directed, continue with regular FSBS monitoring to assure continued control of diabetes. Pt to call for any acute concerns, complaints, or if the blood glucose readings are starting to become less controlled. Hypertension - well controlled - continue with current medications, continue with no added salt diet. Pt has been encouraged to exercise daily. The pt has been advised to call the office if there are any acute concerns about change in blood pressure readings at home. . Continued fatigue, malaise post hospitalization - pt to expect some fatigue - however, will check chem panel, cbc since he had neutropenia in hospital and elevated creatinine and liver enzymes. Hypertension - not optimally controlled but pt to continue with current medications, continue with no added salt diet. Pt has been encouraged to exercise daily. The pt has been advised to call the office if there are any acute concerns about change in blood pressure readings at home. Diabetes Mellitus - controlled - per recent FSBS reports. I have recommended for the patient to have follow up labs prior to the next office visit. The patient has been instructed to continue with current medications as previously directed, continue with regular FSBS monitoring to assure continued control of diabetes. Pt to call for any acute concerns, complaints, or if the blood glucose readings are starting to become less controlled. . Hypertension - wel l controlled - continue with current medications, continue with no added salt diet. Pt has been encouraged to exercise daily. The pt has been advised to call the office if there are any acute concerns about change in blood pressure readings at home. Atrial Fibrillation - pt on chronic anticoagulation and is currently rate controlled. The pt is to have labs done as appropriate to monitor medication levels and is to report if they start to feel as if their heart rate is becoming uncontrolled. . Hypertension - wel l controlled - continue with current medications, continue with no added salt diet. Pt has been encouraged to exercise daily. The pt has been advised to call the office if there are any acute concerns about change in blood pressure readings at home. Hyperlipidemia - pt has been counseled about appropriate diet, exercise, and need for low fat food choices. I have discussed the need for the patient to take medications as prescribed. If the patient has negative side effects from the medication, they are to CALL the office and not abruptly discontinue the medication without discussion with a practitioner in the office. We will check labs in 3-6 months for follow up on the patient's chronic medical problem and to assure normal liver response to medications. Samples of crestor given to patient today . Hypertension - unc ontrolled - the patient's medications have been modified as documented in the visit note. The patient has been counseled to cut back on salt in diet for a no added salt diet, low fat diet, start an exercise program with low weight bearing exercises and higher aerobic activity for heart health. . Fatigue, Snoring disorder, excessive daytime sleepiness - recommended that Don have a sleep study - he did not pass a sleep study done over 7 years ago - but never got a machine for the sleep apnea - it was around the time he had a bypass and "it got lost in the aftermath of his bypass". I have recommended and had staff make a referral for sleep study at the hospital. Diabetes Mellitus - controlled - per recent FSBS reports. I have recommended for the patient to have follow up labs prior to the next office visit. The patient has been instructed to continue with current medications as previously directed, continue with regular FSBS monitoring to assure continued control of diabetes. Pt to call for any acute concerns, complaints, or if the blood glucose readings are starting to become less controlled. . Obesity - chronic issue with this patient. The pt has been counseled about diet changes, calorie restriction, and need to exercise. Pt will RTC in one month for weight check. Diabetes Mellitus - controlled - per recent FSBS reports. I have recommended for the patient to have follow up labs prior to the next office visit. The patient has been instructed to continue with current medications as previously directed, continue with regular FSBS monitoring to assure continued control of diabetes. Pt to call for any acute concerns, complaints, or if the blood glucose readings are starting to become less controlled. I have recommended for the patient to follow more strictly to the diabetic diet as discussed in clinic to allow for greater blood glucose control. Increase activity level - increase aerobic exercise Hyperlipidemia - pt has been counseled about appropriate diet, exercise, and need for low fat food choices. I have discussed the need for the patient to take medications as prescribed. If the patient has negative side effects from the medication, they are to CALL the office and not abruptly discontinue the medication without discussion with a practicioner in the office. We will check labs in 3-6 months for follow up on the patient's chronic medical problem and to assure normal liver response to medications. Pt does not want to start on statin - I will allow for him to try more aggressive exercise - if he does not have improved HDL, then need to consider starting on a statin at least three times a week. He states that he has been counseled by me and Dr. Culver in the past that he needed to be on a statin, but is hesitant to do so as he had myalgias with previous statin use. Hypertension - well controlled - continue with current medications, continue with no added salt diet. Pt has been encouraged to exercise daily. The pt has been advised to call the office if there are any acute concerns about change in blood pressure readings at home. . Hospital follow up - This was a follow up appointment from the patient's hospitalization during which time Dr. Shetty formulated the assessment and plan for the follow up on this patient's medical condition. . Hypertension - wel l controlled - continue with current medications, continue with no added salt diet. Pt has been encouraged to exercise daily. The pt has been advised to call the office if there are any acute concerns about change in blood pressure readings at home. Hyperlipidemia - pt has been counseled about appropriate diet, exercise, and need for low fat food choices. I have discussed the need for the patient to take medications as prescribed. If the patient has negative side effects from the medication, they are to CALL the office and not abruptly discontinue the medication without discussion with a practitioner in the office. We will check labs in 3-6 months for follow up on the patient's chronic medical problem and to assure normal liver response to medications. Edema - pt has been advised to elevate legs to prevent dependent edema, compression has been recommended to help to naturally decrease peripheral edema. Diuretic use has been discussed and pt has been instructed in appropriate use of such medication as necessary to further attempt to reduce peripheral edema. Diabetes Mellitus - controlled - per recent FSBS reports. I have recommended for the patient to have follow up labs prior to the next office visit. The patient has been instructed to continue with current medications as previously directed, continue with regular FSBS monitoring to assure continued control of diabetes. Pt to call for any acute concerns, complaints, or if the blood glucose readings are starting to become less controlled. Comment . Hypertension - wel l controlled - continue with current medications, continue with no added salt diet. Pt has been encouraged to exercise daily. The pt has been advised to call the office if there are any acute concerns about change in blood pressure readings at home. Diabetes Mellitus - controlled - per recent FSBS reports. I have recommended for the patient to have follow up labs prior to the next office visit. The patient has been instructed to continue with current medications as previously directed, continue with regular FSBS monitoring to assure continued control of diabetes. Pt to call for any acute concerns, complaints, or if the blood glucose readings are starting to become less controlled. Esophageal Reflux - the patient has been counseled against excessive intake of caffiene, spicy foods, peppermint, and cinnamon - all of which can exacerbate esophageal reflux. The patient is to take medications as prescribed and call the office if the symptoms are not improving. Pt given rx for carafate, pt to call if not improved. . Diabetes Mellitus - controlled - per recent FSBS reports. I have recommended for the patient to have follow up labs prior to the next office visit. The patient has been instructed to continue with current medications as previously directed, continue with regular FSBS monitoring to assure continued control of diabetes. Pt to call for any acute concerns, complaints, or if the blood glucose readings are starting to become less controlled. I have recommended for the patient to follow more strictly to the diabetic diet as discussed in clinic to allow for greater blood glucose control. Increase activity level - increase aerobic exercise Hyperlipidemia - pt has been counseled about appropriate diet, exercise, and need for low fat food choices. I have discussed the need for the patient to take medications as prescribed. If the patient has negative side effects from the medication, they are to CALL the office and not abruptly discontinue the medication without discussion with a practicioner in the office. We will check labs in 3-6 months for follow up on the patient's chronic medical problem and to assure normal liver response to medications. Pt does not want to start on statin - I will allow for him to try more aggressive exercise - if he does not have improved HDL, then need to consider starting on a statin at least three times a week. He states that he has been counseled by me and Dr. Culver in the past that he needed to be on a statin, but is hesitant to do so as he had myalgias with previous statin use. Hypertension - well controlled - continue with current medications, continue with no added salt diet. Pt has been encouraged to exercise daily. The pt has been advised to call the office if there are any acute concerns about change in blood pressure readings at home. . Diabetes Mellitus - controlled - per recent FSBS reports. I have recommended for the patient to have follow up labs prior to the next office visit. The patient has been instructed to continue with current medications as previously directed, continue with regular FSBS monitoring to assure continued control of diabetes. Pt to call for any acute concerns, complaints, or if the blood glucose readings are starting to become less controlled. Biceps tendonitis - pt to do exercises as directed, antiinflammatories directed to be taken per RX instructions and pt to call if symptoms are not improved. . Hypertension - wel l controlled - continue with current medications, continue with no added salt diet. Pt has been encouraged to exercise daily. The pt has been advised to call the office if there are any acute concerns about change in blood pressure readings at home. Edema - bilateral lower legs - rx for lasix. . Hypertension - wel l controlled - continue with current medications, continue with no added salt diet. Pt has been encouraged to exercise daily. The pt has been advised to call the office if there are any acute concerns about change in blood pressure readings at home. Diabetes Mellitus - controlled - per recent FSBS reports. I have recommended for the patient to have follow up labs prior to the next office visit. The patient has been instructed to continue with current medications as previously directed, continue with regular FSBS monitoring to assure continued control of diabetes. Pt to call for any acute concerns, complaints, or if the blood glucose readings are starting to become less controlled. PT TO INCREASE LOSAR WAGNER TO 100MG DAILY.. Diabetes Mellitus - controlled - per recent FSBS reports. I have recommended for the patient to have follow up labs prior to the next office visit. The patient has been instructed to continue with current medications as previously directed, continue with regular FSBS monitoring to assure continued control of diabetes. Pt to call for any acute concerns, complaints, or if the blood glucose readings are starting to become less controlled. Hypertension - uncontrolled - the patient's medications have been modified as documented in the visit note. The patient has been counseled to cut back on salt in diet for a no added salt diet, low fat diet, start an exercise program with low weight bearing exercises and higher aerobic activity for heart health. The patient is to check blood pressure readings as an outpatient and either fax, call, or email the readings to the office next week for practicioner to review. The pt is to call for acute concerns. PT TO INCREASE LOSARTAN TO 100MG DAILY. PT TO INCREASE EXERCISE - AEROBIC EXERCISE- TO HELP IMPROVE HDL AND DECREASE ABDOMINAL WEIGHT. . Hypertension - wel l controlled - continue with current medications, continue with no added salt diet. Pt has been encouraged to exercise daily. The pt has been advised to call the office if there are any acute concerns about change in blood pressure readings at home. Atrial Fibrillation - pt on chronic anticoagulation and is currently rate controlled. The pt is to have labs done as appropriate to monitor medication levels and is to report if they start to feel as if their heart rate is becoming uncontrolled. DM - FSBS fairly well controlled - continue current treatments - monitor symptoms. Pt to increase the p epcid to twice daily Pt to keep appt with Dr. Bello on 06/25/13 @10:10AM. Esophageal Reflux - the patient has been counseled against excessive intake of caffiene, spicy foods, peppermint, and cinnamon - all of which can exacerbate esophageal reflux. The patient is to take medications as prescribed and call the office if the symptoms are not improving. Pt to increase the pepcid to twice daily Pt to keep appt with Dr. Bello on 06/25/13 @10:10AM Ask Dr. Marie quintanilla ut an ablation on the nerves in your back. Hypertension - well controlled - continue with current medications, continue with no added salt diet. Pt has been encouraged to exercise daily. The pt has been advised to call the office if there are any acute concerns about change in blood pressure readings at home. Diabetes Mellitus - controlled - per recent FSBS reports. I have recommended for the patient to have follow up labs prior to the next office visit. The patient has been instructed to continue with current medications as previously directed, continue with regular FSBS monitoring to assure continued control of diabetes. Pt to call for any acute concerns, complaints, or if the blood glucose readings are starting to become less controlled. Hyperlipidemia - pt has been counseled about appropriate diet, exercise, and need for low fat food choices. I have discussed the need for the patient to take medications as prescribed. If the patient has negative side effects from the medication, they are to CALL the office and not abruptly discontinue the medication without discussion with a practitioner in the office. We will check labs in 3-6 months for follow up on the patient's chronic medical problem and to assure normal liver response to medications. Back pain - discussed with the pt - he needs to talk to his back specialist about a possible nerve ablation. . Hypertension - unc ontrolled - the patient's medications have been modified as documented in the visit note. The patient has been counseled to cut back on salt in diet for a no added salt diet, low fat diet, start an exercise program with low weight bearing exercises and higher aerobic activity for heart health. The patient is to check blood pressure readings as an outpatient and either fax, call, or email the readings to the office next week for practitioner to review. The pt is to call for acute concerns. Anemia - change iron to two days a week. Urge Incontinence - monitor symptoms - hold myrbetric x 1 week - report back to us about symptoms off f the myrbectric and he will follow up on his blood pressure that may be elevated due to his myrbetric . Edema - pt has bee n advised to elevate legs to prevent dependent edema. Diuretic use has been discussed and pt has been instructed in appropriate use of such medication as necessary to further attempt to reduce peripheral edema. On the days he takes diruetic (LASIX) drink an extra glass of orange juice. Hypertension - fairly well controlled - continue with current medications, continue with no added salt diet. Pt has been encouraged to exercise daily. The pt has been advised to call the office if there are any acute concerns about change in blood pressure readings at home. . ADMIT FROM CLINIC TO HOSPITAL - PT IS ACUTELY ILL, REQUIRES HOSPITALIZATION. THE PATIENT HAS BEEN EVALUATED IN CLINIC AND THIS STANDS THE HOSPITAL HISTORY AND PHYSICAL EXAMINATION. THE PATIENT HAS BEEN SENT TO THE HOSPITAL WITH WRITTEN ORDERS FOR TREATMENT AND EVALUATION OF THE ACUTE ILLNESS. Pt to be started on rocephin, iv fluids, and will check labs - chem panel, cbc, tsh. . Hypertension - wel l controlled - continue with current medications, continue with no added salt diet. Pt has been encouraged to exercise daily. The pt has been advised to call the office if there are any acute concerns about change in blood pressure readings at home. Back pain - Sciatica - pt has not had any improvement with therapy - He cannot have an MRI due to his pacemaker - therefore - order for CT scan of back/pelvis - we may need to do a referral to [facility] for injection into low back depending on the CT scan report. refill phenergan wit h codeine cough syrup call if cough does not resolve and we can call in an antbiotic prevnar 13 when you are feeling better . Medicare Exam - today we discussed the patients past history, immunizations, preventative exams/evaluations - colonoscopy, fecal occult blood testing, routine labs for renal function, glucose, cholesterol, osteoporosis evaluations, cardiovascular testing and cancer screenings. We have also discussed mental health and the signs/symptoms of depression. The patient was advised of home safety evaluations and the need to make sure that as the aging process continues, we need to be aware of different ways to make the home a safer place to reside. The patient has also been counseled that exercise is necessary - and of utmost importance as we age to help decrease fall risk and to maintain independence in the home. Today we discussed the need for the patient to create paperwork for Advanced directives as well as for the patient to provide this office with a copy of her DOPA paperwork for health care surrogate. Cough- improving -call if symptoms do not resolve . Hypertension - wel l controlled - continue with current medications, continue with no added salt diet. Pt has been encouraged to exercise daily. The pt has been advised to call the office if there are any acute concerns about change in blood pressure readings at home. Diabetes Mellitus - controlled - per recent FSBS reports. I have recommended for the patient to have follow up labs prior to the next office visit. The patient has been instructed to continue with current medications as previously directed, continue with regular FSBS monitoring to assure continued control of diabetes. Pt to call for any acute concerns, complaints, or if the blood glucose readings are starting to become less controlled. Cough - recent dx of pneumonia - pt sent to hospital for xray. extension of antibiotics - doxycycline 100mg bid x 7 more days. . Hypertension - wel l controlled - continue with current medications, continue with no added salt diet. Pt has been encouraged to exercise daily. The pt has been advised to call the office if there are any acute concerns about change in blood pressure readings at home. Myalgias - improved - no change in current management . Hypertension - unc ontrolled - the patient's medications have been modified as documented in the visit note. The patient has been counseled to cut back on salt in diet for a no added salt diet, low fat diet, start an exercise program with low weight bearing exercises and higher aerobic activity for heart health. The patient is to check blood pressure readings as an outpatient and either fax, call, or email the readings to the office next week for practitioner to review. The pt is to call for acute concerns. Pt changed to clonidine patch - stop clonidine pills. Fatigue, Snoring disorder, excessive daytime sleepiness - recommended that Don have a sleep study - he did not pass a sleep study done over 7 years ago - but never got a machine for the sleep apnea - it was around the time he had a bypass and "it got lost in the aftermath of his bypass". I have recommended and had staff make a referral for sleep study at the hospital. Diabetes Mellitus - controlled - per recent FSBS reports. I have recommended for the patient to have follow up labs prior to the next office visit. The patient has been instructed to continue with current medications as previously directed, continue with regular FSBS monitoring to assure continued control of diabetes. Pt to call for any acute concerns, complaints, or if the blood glucose readings are starting to become less controlled. . Hypertension - wel l controlled - continue with current medications, continue with no added salt diet. Pt has been encouraged to exercise daily. The pt has been advised to call the office if there are any acute concerns about change in blood pressure readings at home. Back pain - improving - continue with current treatment - continue with physical therapy. . Hypertension - wel l controlled - continue with current medications, continue with no added salt diet. Pt has been encouraged to exercise daily. The pt has been advised to call the office if there are any acute concerns about change in blood pressure readings at home. Diabetes Mellitus - controlled - per recent FSBS reports. I have recommended for the patient to have follow up labs prior to the next office visit. The patient has been instructed to continue with current medications as previously directed, continue with regular FSBS monitoring to assure continued control of diabetes. Pt to call for any acute concerns, complaints, or if the blood glucose readings are starting to become less controlled. DEXILANT 60MG DAILY SULCRAFATE BEFORE MEALS AND AT BEDTIME CALL IF YOUR SYMPTOMS ARE UNCONTROLLED . Esophageal Reflux - the patient has be en counseled against excessive intake of caffeine, spicy foods, peppermint, and cinnamon - all of which can exacerbate esophageal reflux. The patient is to take medications as prescribed and call the office if the symptoms are not improving. . Diabetes Mellitus - controlled - per recent FSBS reports. I have recommended for the patient to have follow up labs prior to the next office visit. The patient has been instructed to continue with current medications as previously directed, continue with regular FSBS monitoring to assure continued control of diabetes. Pt to call for any acute concerns, complaints, or if the blood glucose readings are starting to become less controlled. Left hip pain - I have recommended a referral to Dr. Salgado for injection bursa at iliac crest. Hypertension - well controlled - continue with current medications, continue with no added salt diet. Pt has been encouraged to exercise daily. The pt has been advised to call the office if there are any acute concerns about change in blood pressure readings at home. Thrush - rx for nystatin swish and swallow. . Hypertension - wel l controlled - continue with current medications, continue with no added salt diet. Pt has been encouraged to exercise daily. The pt has been advised to call the office if there are any acute concerns about change in blood pressure readings at home. Diabetes Mellitus - controlled - per recent FSBS reports. I have recommended for the patient to have follow up labs prior to the next office visit. The patient has been instructed to continue with current medications as previously directed, continue with regular FSBS monitoring to assure continued control of diabetes. Pt to call for any acute concerns, complaints, or if the blood glucose readings are starting to become less controlled. Sciatica- exercises discussed with the patient, pt to start on steroid at low dose. Pt is to call if the symptoms do not improve or if they worsen. Due to uncontrolled symptoms, I have recommended a referral to [facility] take a probiotic tati ly while taking the doxycycline . Hypertension - well controlled - louise nue with current medications, continue with no added salt diet. Pt has been encouraged to exercise daily. The pt has been advised to call the office if there are any acute concerns about change in blood pressure readings at home. Atrial Fibrillation - pt on chronic anticoagulation and is currently rate controlled. The pt is to have labs done as appropriate to monitor medication levels and is to report if they start to feel as if their heart rate is becoming uncontrolled. Tick Borne Illness - continue with doxycycline plans - twice daily x 2 weeks, then daily x 1 month then prn symptoms of tick born illness. . Right posterior fl ank/rib pain - need to ask Dr. Eros Worley if there is a specific test he would like to see done prior to an appt - question if nerve block would help his pain Hypertension - well controlled - continue with current medications, continue with no added salt diet. Pt has been encouraged to exercise daily. The pt has been advised to call the office if there are any acute concerns about change in blood pressure readings at home. . Hypertension - wel l controlled - continue with current medications, continue with no added salt diet. Pt has been encouraged to exercise daily. The pt has been advised to call the office if there are any acute concerns about change in blood pressure readings at home. Diabetes Mellitus - controlled - per recent FSBS reports. I have recommended for the patient to have follow up labs prior to the next office visit. The patient has been instructed to continue with current medications as previously directed, continue with regular FSBS monitoring to assure continued control of diabetes. Pt to call for any acute concerns, complaints, or if the blood glucose readings are starting to become less controlled. Abdominal/Flank pain - recommended pt to start stretching exercises for his flank/back pain - pt is not interested in physical therapy at this time. stop the pravastatin - . Hypertension - well controlled - louise nue with current medications, continue with no added salt diet. Pt has been encouraged to exercise daily. The pt has been advised to call the office if there are any acute concerns about change in blood pressure readings at home. Myalgias - stop pravastatin - continue with coenzyme q10. Monitor symptoms. Urinary frequency - check urinalysis. I sent a prescriptio n for doxycycline 100mg twice daily to [facility]-start it this evening Call if you are not better or if any worse. . URI - Pt advised to increase fluids, vitamin C. Discussed natural and expected course of this diagnosis and need to alert me if symtpoms do not follow expected course, or if any worse. RX sent to patient's pharmacy. Allergies - Advised avoidance of allergens if possible, we discussed natural and expected course of this diagnosis and need to alert me if symtpoms do not follow expected course, or if any worse. Recommend claritin or zyrtec daily. . Bronchitis - acute case of bronchitis identified. Pt has been given antibiotics, breathing treatments as appropriate, and pt has been instructed to call if symptoms are not improved, or if symptoms acutely worsen. URI - Pt advised to increase fluids, vitamin C. Discussed natural and expected course of this diagnosis and need to alert me if symtpoms do not follow expected course, or if any worse. RX sent to patient's pharmacy. . Hypertension - wel l controlled - continue with current medications, continue with no added salt diet. Pt has been encouraged to exercise daily. The pt has been advised to call the office if there are any acute concerns about change in blood pressure readings at home. Co-Enzyme Q 10 - or Co Q 10 - take daily - to help relieve shoulder pain. Increase antioxidants in diet (blue villegas, pomegranate). . In Grown toenail - sees Dr Mauricio next week, until then soak toe in Epson salt water at night and after put cotton under toenail to help relieve pressure. Reflux - Take protonix in the evening for 1 week see if symptoms resolve, if not increase to twice a day for 1 week, call office to let know if symptoms are improved or not. Co-Enzyme Q 10 - or Co Q 10 - take daily - to help relieve shoulder pain. Increase antioxidants in diet (blue villegas, pomegranate). . Diabetes Mellitus - controlled - per recent FSBS reports. I have recommended for the patient to have follow up labs prior to the next office visit. The patient has been instructed to continue with current medications as previously directed, continue with regular FSBS monitoring to assure continued control of diabetes. Pt to call for any acute concerns, complaints, or if the blood glucose readings are starting to become less controlled. Noflu shots available, recommend pt to go to [facility] or [facility] for the shot. Kidney stone - keep appt with Dr. Hewitt for planned procedure for removal of kidney stone. . Chestwall pain - r ecommended use of topical antiinflammatory/topical aspercreme. HTN - not well controlled today - but pt has reports of good blood pressure control. DM- controlled per patient report. . Hospital follow up - This was a follow up appointment from the patient's hospitalization during which time Dr. Shetty formulated the assessment and plan for the follow up on this patient's medical condition. . Tic Bite - improvi ng - rx for blue goo TYLENOL 2 PILLS THRE E TIMES DAILY X 1 WEEK -TAKE WITH FOOD CHECK LABS LET ME KNOW IF YOUR JOINT PAIN DOES NOT IMPROVE CHECK LABS . Edema - pt has been advised to elevate legs to prevent dependent edema, compression has been recommended to help to naturally decrease peripheral edema. Diuretic use has been discussed and pt has been instructed in appropriate use of such medication as necessary to further attempt to reduce peripheral edema. Hypertension - well controlled - continue with current medications, continue with no added salt diet. Pt has been encouraged to exercise daily. The pt has been advised to call the office if there are any acute concerns about change in blood pressure readings at home. Joint pain -use tylenol as directed-check labs- call if pain does not resolve DM-check labs . URI - Pt advised t o increase fluids, vitamin C. Discussed natural and expected course of this diagnosis and need to alert me if symptoms do not follow expected course, or if any worse. RX sent to patient's pharmacy. change diltiazem fro m 180mg - new dose is 120mg - start this tomorrow. tonight - if heart rate is at or below 60, decrease the metoprolol to 50mg. new parameters if heart rate is at or below 55, decrease dose of metoprolol from 100mg down to 50mg. call if heart rate is above 100, or below 50. . Hypertension - well controlled - louise nue with current medications, continue with no added salt diet. Pt has been encouraged to exercise daily. The pt has been advised to call the office if there are any acute concerns about change in blood pressure readings at home. Atrial Fibrillation - pt on chronic anticoagulation and is currently rate controlled. The pt is to have labs done as appropriate to monitor medication levels and is to report if they start to feel as if their heart rate is becoming uncontrolled. change diltiazem from 180mg - new dose is 120mg - start this tomorrow. tonight - if heart rate is at or below 60, decrease the metoprolol to 50mg. new parameters if heart rate is at or below 55, decrease dose of metoprolol from 100mg down to 50mg. call if heart rate is above 100, or below 50. Fatigue - improved since stopping amiodarone get the dissolving b 12 tabs - and okay to take the b vitamins with biotin . Recurrent urinary tract infection - mo nitor symptoms - pt has had full treatment for infection and is to let us know if infection symptoms return. go back to just one losartan daily hold the fenofibrate (generic tricor) . Hypertension - well controlled - louise nue with current medications, continue with no added salt diet. Pt has been encouraged to exercise daily. The pt has been advised to call the office if there are any acute concerns about change in blood pressure readings at home. Diabetes Mellitus - controlled - per recent FSBS reports. I have recommended for the patient to have follow up labs prior to the next office visit. The patient has been instructed to continue with current medications as previously directed, continue with regular FSBS monitoring to assure continued control of diabetes. Pt to call for any acute concerns, complaints, or if the blood glucose readings are starting to become less controlled. tiger balm - muscle rub . Hypertension - well controlled - louise nue with current medications, continue with no added salt diet. Pt has been encouraged to exercise daily. The pt has been advised to call the office if there are any acute concerns about change in blood pressure readings at home. Atrial Fibrillation - pt on chronic anticoagulation and is currently rate controlled. The pt is to have labs done as appropriate to monitor medication levels and is to report if they start to feel as if their heart rate is becoming uncontrolled. Back pain - recommended muscle rub Chest xray at the [facility]. Bronchitis-cough - acute case of bronchitis identified. Pt has been given antibiotics, breathing treatments as appropriate, and pt has been instructed to call if symptoms are not improved, or if symptoms acutely worsen. sample of albuterol inhaler provided, demonstrated and instructed on use. Plan for chest xray today at the hospital. pt to keep on losartan bystolic and start on clonidine 0.1mg twice daily. . Hypertension - uncontrolled - the elvis ent's medications have been modified as documented in the visit note. The patient has been counseled to cut back on salt in diet for a no added salt diet, low fat diet, start an exercise program with low weight bearing exercises and higher aerobic activity for heart health. The patient is to check blood pressure readings as an outpatient and either fax, call, or email the readings to the office next week for practitioner to review. The pt is to call for acute concerns. pt to keep on losartan bystolic and start on clonidine 0.1mg twice daily. Diabetes Mellitus - controlled - per recent FSBS reports. I have recommended for the patient to have follow up labs prior to the next office visit. The patient has been instructed to continue with current medications as previously directed, continue with regular FSBS monitoring to assure continued control of diabetes. Pt to call for any acute concerns, complaints, or if the blood glucose readings are starting to become less controlled. . Bradycardia - pt t o maintain current medication - I have recommended his to check his blood pressure and heart rate at 1 hour, 1.5 hour and 2 hour post intake of toprol. IF his heart rate is at or below 45, we need to consider decreasing his toprol to 25mg bid. Hypertension - well controlled - continue with current medications, continue with no added salt diet. Pt has been encouraged to exercise daily. The pt has been advised to call the office if there are any acute concerns about change in blood pressure readings at home. flu shot given in clinic today . Diabetes Mellitus - controlled - per recent FSBS reports. I have recommended for the patient to have follow up labs prior to the next office visit. The patient has been instructed to continue with current medications as previously directed, continue with regular FSBS monitoring to assure continued control of diabetes. Pt to call for any acute concerns, complaints, or if the blood glucose readings are starting to become less controlled. Hypertension - well controlled - continue with current medications, continue with no added salt diet. Pt has been encouraged to exercise daily. The pt has been advised to call the office if there are any acute concerns about change in blood pressure readings at home. . Continued fatigue, malaise post hospitalization - pt to expect some fatigue - however, will check chem panel, cbc since he had neutropenia in hospital and elevated creatinine and liver enzymes. Hypertension - not optimally controlled but pt to continue with current medications, continue with no added salt diet. Pt has been encouraged to exercise daily. The pt has been advised to call the office if there are any acute concerns about change in blood pressure readings at home. Diabetes Mellitus - controlled - per recent FSBS reports. I have recommended for the patient to have follow up labs prior to the next office visit. The patient has been instructed to continue with current medications as previously directed, continue with regular FSBS monitoring to assure continued control of diabetes. Pt to call for any acute concerns, complaints, or if the blood glucose readings are starting to become less controlled. . Hypertension - wel l controlled - continue with current medications, continue with no added salt diet. Pt has been encouraged to exercise daily. The pt has been advised to call the office if there are any acute concerns about change in blood pressure readings at home. Atrial Fibrillation - pt on chronic anticoagulation and is currently rate controlled. The pt is to have labs done as appropriate to monitor medication levels and is to report if they start to feel as if their heart rate is becoming uncontrolled. . Hypertension - wel l controlled - continue with current medications, continue with no added salt diet. Pt has been encouraged to exercise daily. The pt has been advised to call the office if there are any acute concerns about change in blood pressure readings at home. Hyperlipidemia - pt has been counseled about appropriate diet, exercise, and need for low fat food choices. I have discussed the need for the patient to take medications as prescribed. If the patient has negative side effects from the medication, they are to CALL the office and not abruptly discontinue the medication without discussion with a practitioner in the office. We will check labs in 3-6 months for follow up on the patient's chronic medical problem and to assure normal liver response to medications. Samples of crestor given to patient today . Hypertension - unc ontrolled - the patient's medications have been modified as documented in the visit note. The patient has been counseled to cut back on salt in diet for a no added salt diet, low fat diet, start an exercise program with low weight bearing exercises and higher aerobic activity for heart health. . Fatigue, Snoring disorder, excessive daytime sleepiness - recommended that Don have a sleep study - he did not pass a sleep study done over 7 years ago - but never got a machine for the sleep apnea - it was around the time he had a bypass and "it got lost in the aftermath of his bypass". I have recommended and had staff make a referral for sleep study at the hospital. Diabetes Mellitus - controlled - per recent FSBS reports. I have recommended for the patient to have follow up labs prior to the next office visit. The patient has been instructed to continue with current medications as previously directed, continue with regular FSBS monitoring to assure continued control of diabetes. Pt to call for any acute concerns, complaints, or if the blood glucose readings are starting to become less controlled. . Obesity - chronic issue with this patient. The pt has been counseled about diet changes, calorie restriction, and need to exercise. Pt will RTC in one month for weight check. Diabetes Mellitus - controlled - per recent FSBS reports. I have recommended for the patient to have follow up labs prior to the next office visit. The patient has been instructed to continue with current medications as previously directed, continue with regular FSBS monitoring to assure continued control of diabetes. Pt to call for any acute concerns, complaints, or if the blood glucose readings are starting to become less controlled. I have recommended for the patient to follow more strictly to the diabetic diet as discussed in clinic to allow for greater blood glucose control. Increase activity level - increase aerobic exercise Hyperlipidemia - pt has been counseled about appropriate diet, exercise, and need for low fat food choices. I have discussed the need for the patient to take medications as prescribed. If the patient has negative side effects from the medication, they are to CALL the office and not abruptly discontinue the medication without discussion with a practicioner in the office. We will check labs in 3-6 months for follow up on the patient's chronic medical problem and to assure normal liver response to medications. Pt does not want to start on statin - I will allow for him to try more aggressive exercise - if he does not have improved HDL, then need to consider starting on a statin at least three times a week. He states that he has been counseled by me and Dr. Culver in the past that he needed to be on a statin, but is hesitant to do so as he had myalgias with previous statin use. Hypertension - well controlled - continue with current medications, continue with no added salt diet. Pt has been encouraged to exercise daily. The pt has been advised to call the office if there are any acute concerns about change in blood pressure readings at home. . Hypertension - wel l controlled - continue with current medications, continue with no added salt diet. Pt has been encouraged to exercise daily. The pt has been advised to call the office if there are any acute concerns about change in blood pressure readings at home. Hyperlipidemia - pt has been counseled about appropriate diet, exercise, and need for low fat food choices. I have discussed the need for the patient to take medications as prescribed. If the patient has negative side effects from the medication, they are to CALL the office and not abruptly discontinue the medication without discussion with a practitioner in the office. We will check labs in 3-6 months for follow up on the patient's chronic medical problem and to assure normal liver response to medications. Edema - pt has been advised to elevate legs to prevent dependent edema, compression has been recommended to help to naturally decrease peripheral edema. Diuretic use has been discussed and pt has been instructed in appropriate use of such medication as necessary to further attempt to reduce peripheral edema. Diabetes Mellitus - controlled - per recent FSBS reports. I have recommended for the patient to have follow up labs prior to the next office visit. The patient has been instructed to continue with current medications as previously directed, continue with regular FSBS monitoring to assure continued control of diabetes. Pt to call for any acute concerns, complaints, or if the blood glucose readings are starting to become less controlled. . Right hip pain -di scussed with Dr Salgado's office-okay for injection today -instructed patient to follow up with them if pain does not resolve-kenalog injection today in the office- recommend heat this evening - instructed patient to call if symptoms do not improve or if any worse. Chief Complaint Reason For Visit Effective Dates Notes joint complaint 09/11/2018 hypertension 06/04/2018 Annual Medicare Wellness Exam 03/27/2018 hypertension 03/19/2018 joint complaint 01/30/2018 fatigue 12/26/2017 Hospital Follow Up 11/21/2017 gastroesophageal reflux 10/19/2017 hypertension 09/18/2017 Hospital Follow Up 07/21/2017 sepsis and UTI hypertension 05/04/2017 Hospital Follow Up 03/30/2017 hypertension 03/02/2017 vertigo 01/31/2017 hypertension 10/25/2016 fatigue 07/27/2016 fatigue 05/26/2016 Hospital Follow Up 05/12/2016 back pain 02/23/2016 blood pressure followup 12/10/2015 back pain 11/10/2015 back pain 08/07/2015 Hospital Follow Up 07/07/2015 ingrown toenail 04/02/2015 fatigue 12/23/2014 fatigue 10/22/2014 fever 09/26/2014 hypertension 07/01/2014 hypertension 06/09/2014 dysuria 05/07/2014 dysuria 04/21/2014 skin lesion 02/14/2014 l eft lower calf pt reports tick bite hypertension 01/16/2014 chest pain/pressure 11/14/2013 hypertension 10/24/2013 chest pain/pressure 06/24/2013 hypertension 06/05/2013 diabetes mellitus 04/01/2013 vaccination against influenza 03/28/2013 Hospital Follow Up 01/29/2013 edema 12/25/2012 diabetes mellitus 10/01/2012 cough 06/29/2012 cough 05/28/2012 diabetes mellitus 04/02/2012 sore throat 01/24/2012 diabetes mellitus 10/03/2011 diabetes mellitus 05/30/2011 Reason For Visit Effective Dates Notes hip pain 09/27/2018 joint complaint 09/11/2018 hypertension 06/04/2018 Annual Medicare Wellness Exam 03/27/2018 hypertension 03/19/2018 joint complaint 01/30/2018 fatigue 12/26/2017 Hospital Follow Up 11/21/2017 gastroesophageal reflux 10/19/2017 hypertension 09/18/2017 Hospital Follow Up 07/21/2017 sepsis and UTI hypertension 05/04/2017 Hospital Follow Up 03/30/2017 hypertension 03/02/2017 vertigo 01/31/2017 hypertension 10/25/2016 fatigue 07/27/2016 fatigue 05/26/2016 Hospital Follow Up 05/12/2016 back pain 02/23/2016 blood pressure followup 12/10/2015 back pain 11/10/2015 back pain 08/07/2015 Hospital Follow Up 07/07/2015 ingrown toenail 04/02/2015 fatigue 12/23/2014 fatigue 10/22/2014 fever 09/26/2014 hypertension 07/01/2014 hypertension 06/09/2014 dysuria 05/07/2014 dysuria 04/21/2014 skin lesion 02/14/2014 l eft lower calf pt reports tick bite hypertension 01/16/2014 chest pain/pressure 11/14/2013 hypertension 10/24/2013 chest pain/pressure 06/24/2013 hypertension 06/05/2013 diabetes mellitus 04/01/2013 vaccination against influenza 03/28/2013 Hospital Follow Up 01/29/2013 edema 12/25/2012 diabetes mellitus 10/01/2012 cough 06/29/2012 cough 05/28/2012 diabetes mellitus 04/02/2012 sore throat 01/24/2012 diabetes mellitus 10/03/2011 diabetes mellitus 05/30/2011 Reason For Visit Effective Dates Notes hypertension 10/08/2018 hip pain 09/27/2018 joint complaint 09/11/2018 hypertension 06/04/2018 Annual Medicare Wellness Exam 03/27/2018 hypertension 03/19/2018 joint complaint 01/30/2018 fatigue 12/26/2017 Hospital Follow Up 11/21/2017 gastroesophageal reflux 10/19/2017 hypertension 09/18/2017 Hospital Follow Up 07/21/2017 sepsis and UTI hypertension 05/04/2017 Hospital Follow Up 03/30/2017 hypertension 03/02/2017 vertigo 01/31/2017 hypertension 10/25/2016 fatigue 07/27/2016 fatigue 05/26/2016 Hospital Follow Up 05/12/2016 back pain 02/23/2016 blood pressure followup 12/10/2015 back pain 11/10/2015 back pain 08/07/2015 Hospital Follow Up 07/07/2015 ingrown toenail 04/02/2015 fatigue 12/23/2014 fatigue 10/22/2014 fever 09/26/2014 hypertension 07/01/2014 hypertension 06/09/2014 dysuria 05/07/2014 dysuria 04/21/2014 skin lesion 02/14/2014 l eft lower calf pt reports tick bite hypertension 01/16/2014 chest pain/pressure 11/14/2013 hypertension 10/24/2013 chest pain/pressure 06/24/2013 hypertension 06/05/2013 diabetes mellitus 04/01/2013 vaccination against influenza 03/28/2013 Hospital Follow Up 01/29/2013 edema 12/25/2012 diabetes mellitus 10/01/2012 cough 06/29/2012 cough 05/28/2012 diabetes mellitus 04/02/2012 sore throat 01/24/2012 diabetes mellitus 10/03/2011 diabetes mellitus 05/30/2011 Reason For Visit Effective Dates Notes hypertension 10/25/2016 fatigue 07/27/2016 fatigue 05/26/2016 Hospital Follow Up 05/12/2016 back pain 02/23/2016 blood pressure followup 12/10/2015 back pain 11/10/2015 back pain 08/07/2015 Hospital Follow Up 07/07/2015 ingrown toenail 04/02/2015 fatigue 12/23/2014 fatigue 10/22/2014 fever 09/26/2014 hypertension 07/01/2014 hypertension 06/09/2014 dysuria 05/07/2014 dysuria 04/21/2014 skin lesion 02/14/2014 l eft lower calf pt reports tick bite hypertension 01/16/2014 chest pain/pressure 11/14/2013 hypertension 10/24/2013 chest pain/pressure 06/24/2013 hypertension 06/05/2013 diabetes mellitus 04/01/2013 vaccination against influenza 03/28/2013 Hospital Follow Up 01/29/2013 edema 12/25/2012 diabetes mellitus 10/01/2012 cough 06/29/2012 cough 05/28/2012 diabetes mellitus 04/02/2012 sore throat 01/24/2012 diabetes mellitus 10/03/2011 diabetes mellitus 05/30/2011 Reason For Visit Effective Dates Notes hypertension 11/01/2018 hypertension 10/08/2018 hip pain 09/27/2018 joint complaint 09/11/2018 hypertension 06/04/2018 Annual Medicare Wellness Exam 03/27/2018 hypertension 03/19/2018 joint complaint 01/30/2018 fatigue 12/26/2017 Hospital Follow Up 11/21/2017 gastroesophageal reflux 10/19/2017 hypertension 09/18/2017 Hospital Follow Up 07/21/2017 sepsis and UTI hypertension 05/04/2017 Hospital Follow Up 03/30/2017 hypertension 03/02/2017 vertigo 01/31/2017 hypertension 10/25/2016 fatigue 07/27/2016 fatigue 05/26/2016 Hospital Follow Up 05/12/2016 back pain 02/23/2016 blood pressure followup 12/10/2015 back pain 11/10/2015 back pain 08/07/2015 Hospital Follow Up 07/07/2015 ingrown toenail 04/02/2015 fatigue 12/23/2014 fatigue 10/22/2014 fever 09/26/2014 hypertension 07/01/2014 hypertension 06/09/2014 dysuria 05/07/2014 dysuria 04/21/2014 skin lesion 02/14/2014 l eft lower calf pt reports tick bite hypertension 01/16/2014 chest pain/pressure 11/14/2013 hypertension 10/24/2013 chest pain/pressure 06/24/2013 hypertension 06/05/2013 diabetes mellitus 04/01/2013 vaccination against influenza 03/28/2013 Hospital Follow Up 01/29/2013 edema 12/25/2012 diabetes mellitus 10/01/2012 cough 06/29/2012 cough 05/28/2012 diabetes mellitus 04/02/2012 sore throat 01/24/2012 diabetes mellitus 10/03/2011 diabetes mellitus 05/30/2011 Reason For Visit Effective Dates Notes hypertension 02/27/2019 hypertension 11/01/2018 hypertension 10/08/2018 hip pain 09/27/2018 joint complaint 09/11/2018 hypertension 06/04/2018 Annual Medicare Wellness Exam 03/27/2018 hypertension 03/19/2018 joint complaint 01/30/2018 fatigue 12/26/2017 Hospital Follow Up 11/21/2017 gastroesophageal reflux 10/19/2017 hypertension 09/18/2017 Hospital Follow Up 07/21/2017 sepsis and UTI hypertension 05/04/2017 Hospital Follow Up 03/30/2017 hypertension 03/02/2017 vertigo 01/31/2017 hypertension 10/25/2016 fatigue 07/27/2016 fatigue 05/26/2016 Hospital Follow Up 05/12/2016 back pain 02/23/2016 blood pressure followup 12/10/2015 back pain 11/10/2015 back pain 08/07/2015 Hospital Follow Up 07/07/2015 ingrown toenail 04/02/2015 fatigue 12/23/2014 fatigue 10/22/2014 fever 09/26/2014 hypertension 07/01/2014 hypertension 06/09/2014 dysuria 05/07/2014 dysuria 04/21/2014 skin lesion 02/14/2014 l eft lower calf pt reports tick bite hypertension 01/16/2014 chest pain/pressure 11/14/2013 hypertension 10/24/2013 chest pain/pressure 06/24/2013 hypertension 06/05/2013 diabetes mellitus 04/01/2013 vaccination against influenza 03/28/2013 Hospital Follow Up 01/29/2013 edema 12/25/2012 diabetes mellitus 10/01/2012 cough 06/29/2012 cough 05/28/2012 diabetes mellitus 04/02/2012 sore throat 01/24/2012 diabetes mellitus 10/03/2011 diabetes mellitus 05/30/2011 History of Present Illness Symptom Name Status Resu lt Effective Date Notes Location Right Hip 09/11/2018 None Location on the right ankle 09/11/2018 None Location on the right knee 09/11/2018 None Quality aching 09/11/2018 None Quality intermittent 09/11/2018 None Quality sharp pain 09/11/2018 None Onset and Resolution s udden in onset 09/11/2018 None Onset of Symptom 10 da ys ago 09/11/2018 None Limitation on Activities moderately limits activities 09/11/2018 None Frequency of Episodes daily 09/11/2018 None Quality chronic 06/04/2018 None Quality primary hypert ension 06/04/2018 None Onset and Resolution o ngoing 06/04/2018 None Onset of Symptom durin g adulthood 06/04/2018 None Blood Pressure Values patient checking blood pressure at home - did not bring in readings 06/04/2018 None Alleviating Factors me dication 06/04/2018 None Pertinent Findings Den ies dizziness 06/04/2018 None Pertinent Findings dys pnea 06/04/2018 with exertion Pertinent Findings brynn ma 06/04/2018 "some"- but not as bad as it was Quality non-insulin de pendent 06/04/2018 None Exacerbating Factors d iet 06/04/2018 None Pertinent Findings Den ies nausea 06/04/2018 None Location on the left 06/04/2018 None Quality intermittent 06/04/2018 None Onset of Symptom frankie hs ago 06/04/2018 None Frequency of Episodes daily 06/04/2018 None Limitation on Activities allows ambulation 06/04/2018 None Limitation on Activities allows weight bearing activity 06/04/2018 None Alleviating Factors re st 06/04/2018 None Exacerbating Factors a ctivity 06/04/2018 None Glucose monitoring occ asional glucose testing 06/04/2018 -does not check often Quality acute 06/04/2018 None Quality productive 06/04/2018 None Quality improving 06/04/2018 None Pertinent Findings spu brendan production 06/04/2018 None Quality stable 06/04/2018 None Annual Medicare Wellness Exam Alcohol Use does not drink any alcohol 03/27/2018 None Annual Medicare Wellness Exam Aspirin Use yes 03/27/2018 None Annual Medicare Wellness Exam Blood Glucose (self reported) desireable (below 100) 03/27/2018 None Annual Medicare Wellness Exam Blood Pressure (self reported) borderline (120/80 - 139/89) 018 None Annual Medicare Wellness Exam Choles terol (self reported) desireable (below 200) 03/27/2018 None Annual Medicare Wellness Exam Depres cele (last 6 months) almost never 03/27/2018 None Annual Medicare Wellness Exam Depres cele or Hopelessness almost never 03/27/2018 None Annual Medicare Wellness Exam Descri be Your Health good 03/27/2018 None Annual Medicare Wellness Exam Exerci se Habits does not exercise 03/27/2018 None Annual Medicare Wellness Exam Handli ng Stress usually len effectively 03/27/2018 None Annual Medicare Wellness Exam Hemagl obin A-1C (self reported) don't know 03/27/2018 No ne Annual Medicare Wellness Exam Hours of Sleep 8 03/27/2018 None Annual Medicare Wellness Exam Intera ction with Friends yes 03/27/2018 None Annual Medicare Wellness Exam Intere sts & Pleasure most of the time 03/27/2018 None Annual Medicare Wellness Exam Life S atisfaction satisfied 03/27/2018 Non e Annual Medicare Wellness Exam Motor Vehicle Safety always fastens seat belt: y 03/27/20 18 None Annual Medicare Wellness Exam Motor Vehicle Safety drives after drinking: n 03/27/2018 None Annual Medicare Wellness Exam Motor Vehicle Safety rides with someone who has been drinking: n 03/27/2018 None Annual Medicare Wellness Exam Nutrition servings of fried food / high fat foods per day: 1 03/27/2018 None Annual Medicare Wellness Exam Nutrition servings of high fiber / whole grain per day: 2 03/27/2018 None Annual Medicare Wellness Exam Nutrition servings of vegetables / fruit per day: 2 03/27/2018 None Annual Medicare Wellness Exam Smokin g and Tobacco Use non smoker 03/27/2018 No ne Annual Medicare Wellness Exam Social & Emotional Support always 03/27/2018 None Annual Medicare Wellness Exam Stress almost never 03/27/2018 None Annual Medicare Wellness Exam Sun Exposure protects skin when outdoors: y 03/27/2018 None hypertension Quality domenic deena hypertension 03/19/2018 None hypertension Onset and Resolution ongoing 03/19/2018 None hypertension Onset of Symptom during adulthood 03/19/2018 None hypertension Blood Pressure Values patient checking blood pressure at home - did not bring in readings 03/19/2018 None hypertension Alleviating Factors medication 03/19/2018 None hypertension Pertinent Findings dizziness 03/19/2018 a little this morning hypertension Pertinent Findings dyspnea 03/19/2018 with exertion hypertension Pertinent Findings edema 03/19/2018 "some" diabetes mellitus Quality non-insulin dependent 03/19/2018 None diabetes mellitus Alleviating Factors medication 03/19/2018 None diabetes mellitus Exacerbating Factors diet 03/19/2018 None diabetes mellitus Pertinent Findings Denies nausea 03/19/2018 None hypertension Quality chr onic 03/19/2018 None diabetes mellitus Test results Pt not checking blood glucose readings at home 03/19/2018 -Will check once in a while hip pain Location on the left 03/19/2018 None hip pain Onset and Resolution ongoing 03/19/2018 None hip pain Onset of Symptom months ago 03/19/2018 None hip pain Quality intermi ttent 03/19/2018 None hip pain Frequency of Episodes daily 03/19/2018 None hip pain Limitation on Activities allows ambulation 03/19/2018 None hip pain Limitation on Activities allows weight bearing activity 03/19/2018 None hip pain Alleviating Factors rest 03/19/2018 None hip pain Exacerbating Factors activity 03/19/2018 None cough Quality acute 03/19/2018 None cough Quality intermitte nt 03/19/2018 None cough Quality productive 03/19/2018 None cough Onset and Resolution sudden in onset 03/19/2018 None cough Pertinent Findings Denies chills 03/19/2018 None cough Pertinent Findings Denies fever 03/19/2018 None cough Pertinent Findings sputum production 03/19/2018 (greenish) cough Onset of Symptom ~ 1 weeks ago 03/19/2018 None joint complaint Location in both hips 01/30/2018 None joint complaint Location in the lumbar spine 01/30/2018 None joint complaint Location on both shoulders 01/30/2018 None joint complaint Quality constant 01/30/2018 None joint complaint Onset and Resolution ongoing 01/30/2018 None joint complaint Onset of Symptom 2 weeks ago 01/30/2018 None joint complaint Pertinent Findings Denies joint redness 01/30/2018 None joint complaint Pertinent Findings Denies osteoarthritis 01/30/2018 None joint complaint Pertinent Findings tick bite 01/30/2018 2013 fatigue Quality worsening 12/26/2017 None fatigue Onset and Resolution ongoing 12/26/2017 None fatigue Onset of Symptom 2 weeks ago 12/26/2017 None fatigue Limitation on Activities moderately limits activities 12/26/2017 None fatigue Pertinent Findings back pain 12/26/2017 None fatigue Pertinent Findings Denies dizziness 12/26/2017 None fatigue Pertinent Findings dyspnea 12/26/2017 some with exertion joint complaint Location in both hips 12/26/2017 None joint complaint Location in the lumbar spine 12/26/2017 None joint complaint Location on both shoulders 12/26/2017 None joint complaint Quality constant 12/26/2017 None joint complaint Onset and Resolution ongoing 12/26/2017 None joint complaint Onset of Symptom 2 weeks ago 12/26/2017 None joint complaint Pertinent Findings Denies joint redness 12/26/2017 None joint complaint Pertinent Findings Denies osteoarthritis 12/26/2017 None joint complaint Pertinent Findings tick bite 12/26/2017 2013 Hospital Follow Up _ car diac disease 11/21/2017 None Hospital Follow Up Quality acute 11/21/2017 None Hospital Follow Up Severity moderate 11/21/2017 None Hospital Follow Up Pertinent Findings Denies fever 11/21/2017 None Hospital Follow Up Exacerbating Factors exertion 11/21/2017 None gastroesophageal reflux Quality intermittent 10/19/2017 None gastroesophageal reflux Quality heartburn 10/19/2017 None gastroesophageal reflux Quality regurgitation of acid 10/19/2017 None gastroesophageal reflux Onset and Re solution sudden in onset 10/19/2017 None gastroesophageal reflux Onset of Symptom 2 days ago 10/19/2017 None gastroesophageal reflux Timing of Episodes in the morning 10/19/2017 None gastroesophageal reflux Timing of Episodes in the afternoon 10/19/2017 None gastroesophageal reflux Timing of Episodes in the evening 10/19/2017 None gastroesophageal reflux Alleviating Factor s proton pump inhibitor 10/19/2017 None 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 09/18/2017 None hypertension Onset and Resolution ongoing 09/18/2017 None hypertension Onset of Symptom during adulthood 09/18/2017 None hypertension Blood Pressure Values patient checking blood pressure at home - did not bring in readings 09/18/2017 None hypertension Alleviating Factors medication 09/18/2017 None hypertension Pertinent Findings Denies dizziness 09/18/2017 None hypertension Pertinent Findings dyspnea 09/18/2017 with exertion hypertension Pertinent Findings edema 09/18/2017 "some" diabetes mellitus Quality non-insulin dependent 09/18/2017 None diabetes mellitus Alleviating Factors medication 09/18/2017 None diabetes mellitus Exacerbating Factors diet 09/18/2017 None diabetes mellitus Pertinent Findings Denies nausea 09/18/2017 None diabetes mellitus Test results Pt not checking blood glucose readings at home 09/18/2017 None Hospital Follow Up _ inf ection 07/21/2017 None Hospital Follow Up _ Oth er: sepsis, UTI 07/21/2017 None Hospital Follow Up Quality acute illness 07/21/2017 None Hospital Follow Up Pertinent Findings fever 07/21/2017 None Hospital Follow Up Pertinent Findings other neurologic symptoms 07/21/2017 None Hospital Follow Up Pertinent Findings pain 07/21/2017 None 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 05/04/2017 None hypertension Onset and Resolution ongoing 05/04/2017 None hypertension Onset of Symptom during adulthood 05/04/2017 None hypertension Blood Pressure Values patient checking blood pressure at home - did not bring in readings 05/04/2017 --140's/80's at home per patient report hypertension Alleviating Factors medication 05/04/2017 None hypertension Pertinent Findings Denies dizziness 05/04/2017 None hypertension Pertinent Findings decreased energy 05/04/2017 None hypertension Pertinent Findings dyspnea 05/04/2017 "some" with exertion hypertension Pertinent Findings edema 05/04/2017 None Hospital Follow Up _ Oth er: near-syncopal episode, hypertension, bradycardia 03/30/2017 None Hospital Follow Up Quality acute 03/30/2017 None Hospital Follow Up Onset of Symptom 12 days ago 03/30/2017 None hypertension Onset and Resolution ongoing 03/02/2017 None hypertension Onset of Symptom during adulthood 03/02/2017 None hypertension Blood Pressure Values patient checking blood pressure at home - did not bring in readings 03/02/2017 -Checks occasionally hypertension Alleviating Factors medication 03/02/2017 None hypertension Pertinent Findings Denies dizziness 03/02/2017 None hypertension Pertinent Findings dyspnea 03/02/2017 with exertion hypertension Pertinent Findings edema 03/02/2017 None diabetes mellitus Quality non-insulin dependent 03/02/2017 None diabetes mellitus Alleviating Factors medication 03/02/2017 None diabetes mellitus Exacerbating Factors diet 03/02/2017 None diabetes mellitus Pertinent Findings Denies nausea 03/02/2017 None foot pain Location on th e right 03/02/2017 None foot pain Location in th e heel 03/02/2017 None foot pain Quality acute 03/02/2017 None foot pain Onset of Symptom approx. 1 month ago 03/02/2017 None foot pain Limitation on Activities allows weight bearing activity 03/02/2017 None vertigo Quality intermit tent 03/02/2017 None vertigo Onset and Resolution ongoing 03/02/2017 None vertigo Pertinent Findings dizziness 03/02/2017 None fatigue Onset and Resolution gradual in onset 03/02/2017 None fatigue Onset and Resolution ongoing 03/02/2017 None fatigue Onset of Symptom _ months ago 03/02/2017 None fatigue Pertinent Findings Denies confusion 03/02/2017 None fatigue Pertinent Findings dizziness 03/02/2017 None fatigue Pertinent Findings Denies insomnia 03/02/2017 None fatigue Pertinent Findings Denies syncope 03/02/2017 None fatigue Pertinent Findings Denies tachycardia 03/02/2017 None fatigue Pertinent Findings Denies weakness 03/02/2017 None fatigue Pertinent Findings weight loss 03/02/2017 None vertigo Quality intermit tent 01/31/2017 None vertigo Onset and Resolution ongoing 01/31/2017 None fatigue Onset and Resolution gradual in onset 01/31/2017 None fatigue Onset and Resolution ongoing 01/31/2017 None fatigue Onset of Symptom _ months ago 01/31/2017 None fatigue Pertinent Findings dizziness 01/31/2017 None fatigue Pertinent Findings Denies confusion 01/31/2017 None fatigue Pertinent Findings Denies insomnia 01/31/2017 None fatigue Pertinent Findings Denies syncope 01/31/2017 None fatigue Pertinent Findings Denies tachycardia 01/31/2017 None fatigue Pertinent Findings Denies weakness 01/31/2017 None fatigue Pertinent Findings weight loss 01/31/2017 None vertigo Pertinent Findings dizziness 01/31/2017 None hypertension Onset and Resolution ongoing 10/25/2016 None hypertension Onset of Symptom during adulthood 10/25/2016 None hypertension Blood Pressure Values patient checking blood pressure at home - did not bring in readings 10/25/2016 -Checks occasionally hypertension Alleviating Factors medication 10/25/2016 None hypertension Pertinent Findings Denies dizziness 10/25/2016 None hypertension Pertinent Findings dyspnea 10/25/2016 with exertion hypertension Pertinent Findings edema 10/25/2016 None diabetes mellitus Quality non-insulin dependent 10/25/2016 None diabetes mellitus Test results Pt not checking blood glucose readings at home 10/25/2016 None diabetes mellitus Glucose monitoring does not test 10/25/2016 None diabetes mellitus Alleviating Factors medication 10/25/2016 None diabetes mellitus Exacerbating Factors diet 10/25/2016 None diabetes mellitus Pertinent Findings Denies nausea 10/25/2016 None foot pain Location on th e right 10/25/2016 None foot pain Location in th e heel 10/25/2016 None foot pain Quality acute 10/25/2016 None foot pain Onset of Symptom approx. 1 month ago 10/25/2016 None foot pain Limitation on Activities allows weight bearing activity 10/25/2016 None fatigue Onset and Resolution sudden in onset 07/27/2016 None fatigue Onset of Symptom 2 months ago 07/27/2016 None fatigue Limitation on Activities moderately limits activities 07/27/2016 None fatigue Triggers exertion 07/27/2016 None fatigue Exacerbating Factors medication 07/27/2016 None gait abnormality Quality acute 07/27/2016 None gait abnormality Quality unsteady 07/27/2016 None gait abnormality Onset and Resolution ongoing 07/27/2016 None gait abnormality Pertinent Findings motor weakness 07/27/2016 None fatigue Frequency of Episodes decreasing 07/27/2016 None fatigue Onset and Resolution sudden in onset 05/26/2016 None fatigue Onset of Symptom 2 months ago 05/26/2016 None fatigue Limitation on Activities moderately limits activities 05/26/2016 None fatigue Frequency of Episodes daily 05/26/2016 None fatigue Triggers exertion 05/26/2016 None fatigue Exacerbating Factors medication 05/26/2016 None gait abnormality Quality unsteady 05/12/2016 None gait abnormality Quality acute 05/12/2016 None gait abnormality Onset and Resolution ongoing 05/12/2016 None gait abnormality Pertinent Findings motor weakness 05/12/2016 None gait abnormality Assistive devices cane 05/12/2016 None back pain Location in th e left lower back area 02/23/2016 None back pain Location in th e right lower back area 02/23/2016 None back pain Quality aching 02/23/2016 None back pain Quality interm ittent 02/23/2016 None back pain Onset and Resolution ongoing 02/23/2016 None back pain Onset of Symptom months ago 02/23/2016 None back pain Limitation on Activities does not limit activities 02/23/2016 None back pain Initial treatment physical therapy 02/23/2016 None dyspnea Onset and Resolution ongoing 02/23/2016 None dyspnea Quality shortnes s of breath 02/23/2016 None dyspnea Quality intermit tent 02/23/2016 None dyspnea Alleviating Factors rest 02/23/2016 None dyspnea Exacerbating Factors exertion 02/23/2016 None hypertension Onset and Resolution ongoing 02/23/2016 None hypertension Onset of Symptom during adulthood 02/23/2016 None hypertension Blood Pressure Values not checking blood pressure at home 02/23/2016 - not often hypertension Alleviating Factors medication 02/23/2016 None hypertension Pertinent Findings Denies dizziness 02/23/2016 None hypertension Pertinent Findings dyspnea 02/23/2016 None hypertension Pertinent Findings edema 02/23/2016 None blood pressure followup Quality primary hypertension 12/10/2015 None blood pressure followup Onset and Re solution ongoing 12/10/2015 None blood pressure followup Onset of Symptom 1 months ago 12/10/2015 None blood pressure followup Blood Pressu re Values pt checking blood pressure at home, did not bring in to clinic 12/10/2015 None blood pressure followup Frequency of Episodes daily 12/10/2015 None blood pressure followup Alleviating Factor s medication 12/10/2015 None blood pressure followup Pertinent Findings Denies dizziness 12/10/2015 None blood pressure followup Pertinent Findings dyspnea 12/10/2015 with exertion blood pressure followup Pertinent Findings edema 12/10/2015 None back pain Location in e left lower back area 11/10/2015 None back pain Location in th e right lower back area 11/10/2015 None back pain Quality interm ittent 11/10/2015 None back pain Onset and Resolution ongoing 11/10/2015 None back pain Onset of Symptom months ago 11/10/2015 None back pain Limitation on Activities does not limit activities 11/10/2015 None back pain Initial treatment physical therapy 11/10/2015 None back pain Quality aching 11/10/2015 None back pain Location in th e right lower back area 08/07/2015 None back pain Onset and Resolution ongoing 08/07/2015 None back pain Onset of Symptom _ months ago 08/07/2015 None back pain Limitation on Activities does not limit activities 08/07/2015 None back pain Location in th e left lower back area 08/07/2015 None back pain Quality interm ittent 08/07/2015 None back pain Quality improv ing 08/07/2015 None back pain Initial treatment physical therapy 08/07/2015 None back pain Quality consta nt 07/07/2015 None back pain Quality worsen ing 07/07/2015 None back pain Location in th e right lower back area 07/07/2015 None back pain Onset and Resolution ongoing 07/07/2015 None back pain Onset of Symptom _ months ago 07/07/2015 None back pain Limitation on Activities does not limit activities 07/07/2015 None Hospital Follow Up _ Oth er: for hypertensive crisis and atrial fibrillation 07/07/2015 2 separate hospital visits he states that he has been checking his blood pressure at home and it has been running "okay" running in the 140-150/60-70 range. Hospital Follow Up Quality acute 07/07/2015 None Hospital Follow Up Alleviating Factors medication 07/07/2015 None arrhythmia Quality acute 07/07/2015 None arrhythmia Quality irreg ular beats 07/07/2015 atrial fibrillation arrhythmia Onset and Resolution resolved 07/07/2015 None arrhythmia Alleviating Factors medication 07/07/2015 amiodarone ingrown toenail Quality sharp pain 04/02/2015 None ingrown toenail Onset of Symptom 3 months ago 04/02/2015 Left big toe ingrown toenail Pertinent Findings redness 04/02/2015 None ingrown toenail Pertinent Findings Denies swelling 04/02/2015 None ingrown toenail Pertinent Findings Denies fever 04/02/2015 None gastroesophageal reflux Quality heartburn 04/02/2015 None gastroesophageal reflux Onset of Symptom 3 days ago 04/02/2015 None gastroesophageal reflux Pertinent Findings Denies cough 04/02/2015 None gastroesophageal reflux Pertinent Findings dysphagia 04/02/2015 No trouble swalling but feels like food gets stuck in his throat. hypertension Quality chr onic 12/23/2014 None hypertension Onset and Resolution ongoing 12/23/2014 None hypertension Blood Pressure Values patient checking blood pressure at home - did not bring in readings 12/23/2014 Says he takes his blood pressure occasio mirtha. Said that they ran high while in hospital.he states that at home his blood pressure has been running in the 140/80's hypertension Pertinent Findings Denies dizziness 12/23/2014 None hypertension Pertinent Findings dyspnea 12/23/2014 he says he is always shor t of breath. hypertension Pertinent Findings edema 12/23/2014 says he is out of lasix, but didnt think that it helped diabetes mellitus Quality non-insulin dependent 12/23/2014 None diabetes mellitus Quality chronic 12/23/2014 None diabetes mellitus Pertinent Findings Denies dizziness 12/23/2014 None fatigue Onset and Resolution ongoing 12/23/2014 None fatigue Limitation on Activities moderately limits activities 12/23/2014 None hypertension Quality chr onic 10/22/2014 None hypertension Onset and Resolution ongoing 10/22/2014 None hypertension Blood Pressure Values patient checking blood pressure at home - did not bring in readings 10/22/2014 Says he takes his blood pressure occasio mirtha. Said that they ran high while in hospital.he states that at home his blood pressure has been running in the 140/80's hypertension Pertinent Findings Denies dizziness 10/22/2014 None hypertension Pertinent Findings dyspnea 10/22/2014 he says he is always shor t of breath. hypertension Pertinent Findings edema 10/22/2014 says he is out of lasix, but didnt think that it helped diabetes mellitus Quality non-insulin dependent 10/22/2014 None diabetes mellitus Quality chronic 10/22/2014 None diabetes mellitus Pertinent Findings Denies dizziness 10/22/2014 None fever Onset of Symptom 1 days ago 09/26/2014 None fever Temperature 101 de grees 09/26/2014 None fever Pertinent Findings cough 09/26/2014 None cough Quality productive 09/26/2014 greenish yellow cough Onset of Symptom 2 days ago 09/26/2014 None cough Pertinent Findings dyspnea 09/26/2014 ongoing cough Pertinent Findings Denies chest discomfort 09/26/2014 None cough Pertinent Findings fever 09/26/2014 None cough Pertinent Findings Denies nasal congestion 09/26/2014 None cough Pertinent Findings sputum production 09/26/2014 greenish yellow fever Quality acute 09/26/2014 None fever Onset and Resolution ongoing 09/26/2014 None fever Triggers no known associated factors 09/26/2014 None fever Pertinent Findings upper respiratory tract symptoms 09/26/2014 None cough Onset and Resolution ongoing 09/26/2014 None cough Location in the th roat 09/26/2014 None cough Location in the jose ng 09/26/2014 None cough Triggers no known associated factors 09/26/2014 None hypertension Quality chr onic 07/01/2014 None hypertension Onset and Resolution ongoing 07/01/2014 None hypertension Blood Pressure Values patient checking blood pressure at home - did not bring in readings 07/01/2014 Says he takes his blood pressure occasio mirtha. Said that they ran high while in hospital.he states that at home his blood pressure has been running in the 140/80's hypertension Pertinent Findings Denies dizziness 07/01/2014 None hypertension Pertinent Findings dyspnea 07/01/2014 he says he is always shor t of breath. hypertension Pertinent Findings edema 07/01/2014 says he is out of lasix, but didnt think that it helped diabetes mellitus Quality non-insulin dependent 07/01/2014 None diabetes mellitus Quality chronic 07/01/2014 None diabetes mellitus Pertinent Findings Denies dizziness 07/01/2014 None hypertension Quality chr onic 06/09/2014 None hypertension Onset and Resolution ongoing 06/09/2014 None hypertension Blood Pressure Values patient checking blood pressure at home - did not bring in readings 06/09/2014 Says he takes his blood pressure occasio mirtha. Said that they ran high while in hospital.he states that at home his blood pressure has been running in the 140/80's hypertension Pertinent Findings Denies dizziness 06/09/2014 None hypertension Pertinent Findings dyspnea 06/09/2014 he says he is always shor t of breath. hypertension Pertinent Findings edema 06/09/2014 says he is out of lasix, but didnt think that it helped diabetes mellitus Quality non-insulin dependent 06/09/2014 None diabetes mellitus Quality chronic 06/09/2014 None diabetes mellitus Pertinent Findings Denies dizziness 06/09/2014 None diabetes mellitus Test results Pt checking blood glucose readings, did not bring results to clinic 06/09/2014 only tests PRN dysuria Quality burning 05/07/2014 Not having any burning on urination toda y, but had some yesterday. urinary urgency Quality acute 05/07/2014 None urinary urgency Onset and Resolution ongoing 05/07/2014 None hypertension Quality chr onic 05/07/2014 None hypertension Onset and Resolution ongoing 05/07/2014 None hypertension Blood Pressure Values patient checking blood pressure at home - did not bring in readings 05/07/2014 Says he takes his blood pressure occasio mirtha. Said that they ran high while in hospital. diabetes mellitus Quality non-insulin dependent 05/07/2014 None diabetes mellitus Quality chronic 05/07/2014 None urinary frequency Quality improving 05/07/2014 None hypertension Pertinent Findings Denies dizziness 05/07/2014 None hypertension Pertinent Findings dyspnea 05/07/2014 he says he is always shor t of breath. hypertension Pertinent Findings edema 05/07/2014 says he is out of lasix, but didnt think that it helped diabetes mellitus Test results Pt checking blood glucose readings, did not bring results to clinic 05/07/2014 checks in the morning and is always unde r 100 diabetes mellitus Glucose monitoring occasional glucose testing 05/07/2014 None diabetes mellitus Pertinent Findings Denies dizziness 05/07/2014 None dysuria Quality burning 04/21/2014 None dysuria Quality worsening 04/21/2014 None dysuria Onset and Resolution ongoing 04/21/2014 None dysuria Onset of Symptom 2 days ago 04/21/2014 None urinary frequency Quality acute 04/21/2014 None urinary frequency Onset and Resolution ongoing 04/21/2014 None urinary frequency Onset of Symptom 2 days ago 04/21/2014 None urinary frequency Limitation on Activities moderately limits activities 04/21/2014 None urinary frequency Triggers no known associated factors 04/21/2014 None urinary urgency Quality acute 04/21/2014 None urinary urgency Onset and Resolution ongoing 04/21/2014 None urinary urgency Onset of Symptom 3 days ago 04/21/2014 None nausea Onset and Resolution ongoing 04/21/2014 None nausea Onset of Symptom 2 days ago 04/21/2014 None nausea Severity mild 04/21/2014 None nausea Triggers no known associated factors 04/21/2014 None nausea Quality acute 04/21/2014 None nausea Pertinent Findings Denies bloating 04/21/2014 None nausea Pertinent Findings chills 04/21/2014 None nausea Pertinent Findings Denies cough 04/21/2014 None nausea Pertinent Findings dyspnea 04/21/2014 - chronic - nausea Pertinent Findings fever 04/21/2014 None vomiting Onset of Symptom 1-2 days ago 04/21/2014 - no more vomitting e Monday - skin lesion Onset and Resolution ongoing 02/14/2014 None skin lesion Onset of Symptom 1 weeks ago 02/14/2014 None skin lesion Significant Medical Conditions trauma 02/14/2014 tick bite skin lesion Pertinent Findings Denies ecchymotic 02/14/2014 None skin lesion Pertinent Findings Denies fever 02/14/2014 None skin lesion Location ant erior left lower leg 02/14/2014 None hypertension Quality chr onic 01/16/2014 None hypertension Onset and Resolution ongoing 01/16/2014 None hypertension Blood Pressure Values patient checking blood pressure at home - did not bring in readings 01/16/2014 None diabetes mellitus Quality non-insulin dependent 01/16/2014 None diabetes mellitus Quality chronic 01/16/2014 None diabetes mellitus Test results Pt checking blood glucose readings, did not bring results to clinic 01/16/2014 None shoulder pain Location o n both shoulders 01/16/2014 states can't raise left a rm above shoulder height shoulder pain Quality wo rsening 01/16/2014 None chest pain/pressure Location in the substernal area 11/14/2013 None chest pain/pressure Exacerbating Factors exertion 11/14/2013 None diabetes mellitus Quality non-insulin dependent 11/14/2013 None diabetes mellitus Quality chronic 11/14/2013 None diabetes mellitus Test results Pt checking blood glucose readings, did not bring results to clinic 11/14/2013 None fatigue Quality chronic 11/14/2013 None fatigue Quality worsening 11/14/2013 None hypertension Quality chr onic 11/14/2013 None hypertension Onset and Resolution ongoing 11/14/2013 None hypertension Blood Pressure Values patient checking blood pressure at home - did not bring in readings 11/14/2013 None hypertension Quality chr onic 10/24/2013 None hypertension Pertinent Findings Denies dizziness 10/24/2013 None hypertension Pertinent Findings dyspnea 10/24/2013 None hypertension Pertinent Findings edema 10/24/2013 None hypertension Pertinent Findings Denies palpitations 10/24/2013 None diabetes mellitus Test results Pt checking blood glucose readings, did not bring results to clinic 10/24/2013 None diabetes mellitus Pertinent Findings nausea 10/24/2013 None hypertension Pertinent Findings decreased energy 10/24/2013 None hypertension Blood Pressure Values patient checking blood pressure at home - did not bring in readings 10/24/2013 at home bp 140/70's hypertension Onset and Resolution ongoing 10/24/2013 None hypertension Onset of Symptom during adulthood 10/24/2013 None chest pain/pressure Quality chronic 06/24/2013 None chest pain/pressure Location in the epigastric area 06/24/2013 no relief with carafate chest pain/pressure Onset of Symptom 1 months ago 06/24/2013 None chest pain/pressure Alleviating Factors rest 06/24/2013 None chest pain/pressure Onset and Resolution ongoing 06/24/2013 states has it on a daily basis and lasts different lengths of time. can't walk up stairs without pain chest pain/pressure Pertinent Findings dyspnea 06/24/2013 None chest pain/pressure Pertinent Findings dyspnea on exertion 06/24/2013 None chest pain/pressure Pertinent Findings Denies lightheadedness 06/24/2013 None hypertension Quality chr onic 06/05/2013 None hypertension Onset and Resolution ongoing 06/05/2013 None hypertension Blood Pressure Values patient checking blood pressure at home - did not bring in readings 06/05/2013 None hypertension Pertinent Findings Denies dizziness 06/05/2013 None hypertension Pertinent Findings dyspnea 06/05/2013 None hypertension Pertinent Findings edema 06/05/2013 None diabetes mellitus Quality non-insulin dependent 06/05/2013 None diabetes mellitus Glucose monitoring occasional glucose testing 06/05/2013 None diabetes mellitus Test results Pt checking blood glucose readings, did not bring results to clinic 06/05/2013 None diabetes mellitus Blood glucose levels between 60 and 120 06/05/2013 None diabetes mellitus Pertinent Findings Denies behavioral changes 06/05/2013 None diabetes mellitus Pertinent Findings Denies increased hunger 06/05/2013 None diabetes mellitus Pertinent Findings lethargy 06/05/2013 None diabetes mellitus Pertinent Findings Denies mental status change 06/05/2013 None diabetes mellitus Pertinent Findings Denies nausea 06/05/2013 None diabetes mellitus Quality non-insulin dependent 04/01/2013 None diabetes mellitus Nutrition regular diet 04/01/2013 None diabetes mellitus Nutrition ADA diet 04/01/2013 None diabetes mellitus Pertinent Findings Denies dehydration 04/01/2013 None diabetes mellitus Pertinent Findings Denies dizziness 04/01/2013 None diabetes mellitus Pertinent Findings Denies increased hunger 04/01/2013 None diabetes mellitus Pertinent Findings Denies lethargy 04/01/2013 None diabetes mellitus Pertinent Findings Denies mental status change 04/01/2013 None diabetes mellitus Pertinent Findings Denies nausea 04/01/2013 None diabetes mellitus Pertinent Findings Denies tingling 04/01/2013 None hypertension Quality chr onic 04/01/2013 None hypertension Onset and Resolution ongoing 04/01/2013 None hypertension Blood Pressure Values patient checking blood pressure at home - did not bring in readings 04/01/2013 None hypertension Alleviating Factors medication 04/01/2013 None hypertension Pertinent Findings Denies decreased energy 04/01/2013 None hypertension Pertinent Findings Denies dizziness 04/01/2013 None hypertension Pertinent Findings Denies nausea 04/01/2013 None hypertension Pertinent Findings Denies orthostatic hypotension 04/01/2013 None hypertension Pertinent Findings Denies palpitations 04/01/2013 None hypertension Pertinent Findings Denies tachycardia 04/01/2013 None diabetes mellitus Test results Pt checking blood glucose readings, did not bring results to clinic 04/01/2013 None hypertension Frequency of Episodes increasing 04/01/2013 concerned about bp rising. states since HCTZ was stopped due to kidney function his blood pressure has been gradually increasing Hospital Follow Up Quality acute illness 01/29/2013 None Hospital Follow Up Onset and Resolution improved but gets fatigued easily 01/29/2013 None Hospital Follow Up Severity moderate 01/29/2013 None Hospital Follow Up Pertinent Findings other arthralgias 01/29/2013 None Hospital Follow Up Pertinent Findings Denies other neurologic symptoms 01/29/2013 None Hospital Follow Up Pertinent Findings Denies pain 01/29/2013 None Hospital Follow Up Alleviating Factors medication 01/29/2013 IV and oral doxycycline edema Quality painless 12/25/2012 None edema Quality pitting 12/25/2012 None edema Onset and Resolution ongoing 12/25/2012 None edema Quality worsening 12/25/2012 None edema Location on both a nkles 12/25/2012 None edema Pertinent Findings Denies limb pain / tenderness 12/25/2012 None edema Pertinent Findings Denies limb redness 12/25/2012 None edema Pertinent Findings Denies dyspnea 12/25/2012 None edema Triggers diet [facility] 12/25/2012 None edema Exacerbating Factors salty foods 12/25/2012 None edema Exacerbating Factors standing 12/25/2012 None diabetes mellitus Quality non-insulin dependent 10/01/2012 None diabetes mellitus Test results Pt checking blood glucose readings, did not bring results to clinic 10/01/2012 None diabetes mellitus Glucose monitoring occasional glucose testing 10/01/2012 None diabetes mellitus Nutrition regular diet 10/01/2012 None diabetes mellitus Nutrition ADA diet 10/01/2012 None diabetes mellitus Pertinent Findings Denies dizziness 10/01/2012 None diabetes mellitus Pertinent Findings Denies dehydration 10/01/2012 None diabetes mellitus Pertinent Findings Denies increased hunger 10/01/2012 None diabetes mellitus Pertinent Findings Denies lethargy 10/01/2012 None diabetes mellitus Pertinent Findings Denies mental status change 10/01/2012 None diabetes mellitus Pertinent Findings Denies nausea 10/01/2012 None diabetes mellitus Pertinent Findings Denies tingling 10/01/2012 None hypertension Quality chr onic 10/01/2012 None hypertension Onset and Resolution ongoing 10/01/2012 None hypertension Blood Pressure Values patient checking blood pressure at home - did not bring in readings 10/01/2012 None hypertension Alleviating Factors medication 10/01/2012 None hypertension Pertinent Findings Denies decreased energy 10/01/2012 None hypertension Pertinent Findings Denies dizziness 10/01/2012 None hypertension Pertinent Findings Denies orthostatic hypotension 10/01/2012 None hypertension Pertinent Findings Denies palpitations 10/01/2012 None hypertension Pertinent Findings Denies tachycardia 10/01/2012 None hypertension Pertinent Findings Denies nausea 10/01/2012 None cough Location in the th roat 06/29/2012 None cough Quality dry 06/29/2012 None cough Onset and Resolution gradual in onset 06/29/2012 None cough Onset of Symptom 1 months ago 06/29/2012 None cough Pertinent Findings chest discomfort 06/29/2012 None cough Onset and Resolution ongoing 06/29/2012 None cough Limitation on Activities does not limit activities 06/29/2012 None cough Frequency of Episodes unchanged 06/29/2012 None cough Triggers no known associated factors 06/29/2012 None cough Pertinent Findings dyspnea 06/29/2012 None cough Pertinent Findings hoarseness 06/29/2012 None cough Pertinent Findings Denies lethargy 06/29/2012 None cough Pertinent Findings Denies nausea 06/29/2012 None cough Pertinent Findings Denies purulent sputum 06/29/2012 None cough Pertinent Findings sputum production 06/29/2012 None cough Location in the jose ng 05/28/2012 None cough Quality acute 05/28/2012 None cough Quality productive 05/28/2012 None cough Onset and Resolution sudden in onset 05/28/2012 None cough Onset of Symptom 1 weeks ago 05/28/2012 None diabetes mellitus Quality non-insulin dependent 04/02/2012 None diabetes mellitus Severity mild 04/02/2012 None diabetes mellitus Quality chronic 04/02/2012 None diabetes mellitus Onset of Symptom onset as an adult 04/02/2012 None diabetes mellitus Alleviating Factors medication 04/02/2012 None diabetes mellitus Alleviating Factors diet 04/02/2012 None diabetes mellitus Alleviating Factors exercise 04/02/2012 None diabetes mellitus Nutrition ADA diet 04/02/2012 None cholesterol followup Quality chronic 04/02/2012 None cholesterol followup Onset and Resolution ongoing 04/02/2012 None cholesterol followup Onset of Symptom during adulthood 04/02/2012 None cholesterol followup Frequency of Episodes unchanged 04/02/2012 None cholesterol followup Triggers no known associated factors 04/02/2012 None cholesterol followup Alleviating Factors medication 04/02/2012 None blood pressure followup Quality chronic 04/02/2012 None blood pressure followup Onset and Re solution ongoing 04/02/2012 None blood pressure followup Onset of Symptom during adulthood 04/02/2012 None blood pressure followup Blood Pressu re Values not checking blood pressure at home 04/02/2012 None blood pressure followup Frequency of Episodes unchanged 04/02/2012 Non e blood pressure followup Alleviating Factor s exercise 04/02/2012 None blood pressure followup Alleviating Factor s medication 04/02/2012 None sore throat Location dif fusely 01/24/2012 None sore throat Quality wors ening 01/24/2012 None sore throat Onset of Symptom 3 days ago 01/24/2012 None cough Location in the jose ng 01/24/2012 None cough Onset and Resolution gradual in onset 01/24/2012 None cough Onset of Symptom 3 weeks ago 01/24/2012 None sore throat Onset and Resolution ongoing 01/24/2012 None sore throat Limitation on Activities does not limit oral intake 01/24/2012 None sore throat Frequency of Episodes increasing 01/24/2012 None sore throat Triggers no known associated factors 01/24/2012 None cough Limitation on Activities does not limit activities 01/24/2012 None cough Quality acute 01/24/2012 None cough Frequency of Episodes unchanged 01/24/2012 None cough Triggers no known associated factors 01/24/2012 None blood pressure followup Alleviating Factor s medication 10/03/2011 None blood pressure followup Alleviating Factor s exercise 10/03/2011 None blood pressure followup Blood Pressu re Values not checking blood pressure at home 10/03/2011 None blood pressure followup Frequency of Episodes unchanged 10/03/2011 Non e blood pressure followup Onset and Re solution ongoing 10/03/2011 None blood pressure followup Onset of Symptom during adulthood 10/03/2011 None blood pressure followup Quality chronic 10/03/2011 None cholesterol followup Alleviating Factors medication 10/03/2011 None cholesterol followup Frequency of Episodes unchanged 10/03/2011 None cholesterol followup Onset and Resolution ongoing 10/03/2011 None cholesterol followup Onset of Symptom during adulthood 10/03/2011 None cholesterol followup Quality chronic 10/03/2011 None cholesterol followup Triggers no known associated factors 10/03/2011 None diabetes mellitus Alleviating Factors medication 10/03/2011 None diabetes mellitus Alleviating Factors exercise 10/03/2011 None diabetes mellitus Alleviating Factors diet 10/03/2011 None diabetes mellitus Glucose monitoring fasting 10/03/2011 None diabetes mellitus Nutrition ADA diet 10/03/2011 None diabetes mellitus Onset of Symptom onset as an adult 10/03/2011 None diabetes mellitus Quality chronic 10/03/2011 None diabetes mellitus Test results HgbA1c level _ 10/03/2011 None diabetes mellitus Severity mild 10/03/2011 None diabetes mellitus Exercise moderate exercise 10/03/2011 walking 30 - 40 minutes d aily, and golfing. diabetes mellitus Quality non-insulin dependent 05/30/2011 None diabetes mellitus Onset of Symptom onset as an adult 05/30/2011 None diabetes mellitus Severity mild 05/30/2011 None diabetes mellitus Blood glucose levels between 60 and 120 05/30/2011 None diabetes mellitus Glucose monitoring daily 05/30/2011 None diabetes mellitus Exercise minimal exercise 05/30/2011 None Symptom Name Status Resu lt Effective Date Notes Location on the right 09/27/2018 None Quality constant 09/27/2018 None Quality worsening 09/27/2018 None Onset and Resolution o ngoing 09/27/2018 None Onset of Symptom 3-4 w eeks ago 09/27/2018 None Frequency of Episodes daily 09/27/2018 None Frequency of Episodes increasing 09/27/2018 [address]levi[address] Factors re st 09/27/2018 None Exacerbating Factors w eight bearing 09/27/2018 None Exacerbating Factors a ctivity 09/27/2018 None Location Right Hip 09/11/2018 None Location on the right ankle 09/11/2018 None Location on the right knee 09/11/2018 None Quality aching 09/11/2018 None Quality intermittent 09/11/2018 None Quality sharp pain 09/11/2018 None Onset and Resolution s udden in onset 09/11/2018 None Onset of Symptom 10 da ys ago 09/11/2018 None Limitation on Activities moderately limits activities 09/11/2018 None Frequency of Episodes daily 09/11/2018 None Quality chronic 06/04/2018 None Quality primary hypert ension 06/04/2018 None Onset and Resolution o ngoing 06/04/2018 None Onset of Symptom durin g adulthood 06/04/2018 None Blood Pressure Values patient checking blood pressure at home - did not bring in readings 06/04/2018 None Alleviating Factors me dication 06/04/2018 None Pertinent Findings Den ies dizziness 06/04/2018 None Pertinent Findings dys pnea 06/04/2018 with exertion Pertinent Findings brynn ma 06/04/2018 "some"- but not as bad as it was Quality non-insulin de pendent 06/04/2018 None Exacerbating Factors d iet 06/04/2018 None Pertinent Findings Den ies nausea 06/04/2018 None Location on the left 06/04/2018 None Quality intermittent 06/04/2018 None Onset of Symptom frankie hs ago 06/04/2018 None Frequency of Episodes daily 06/04/2018 None Limitation on Activities allows ambulation 06/04/2018 None Limitation on Activities allows weight bearing activity 06/04/2018 None Alleviating Factors re st 06/04/2018 None Exacerbating Factors a ctivity 06/04/2018 None Glucose monitoring occ asional glucose testing 06/04/2018 -does not check often Quality acute 06/04/2018 None Quality productive 06/04/2018 None Quality improving 06/04/2018 None Pertinent Findings spu brendan production 06/04/2018 None Quality stable 06/04/2018 None Annual Medicare Wellness Exam Alcohol Use does not drink any alcohol 03/27/2018 None Annual Medicare Wellness Exam Aspirin Use yes 03/27/2018 None Annual Medicare Wellness Exam Blood Glucose (self reported) desireable (below 100) 03/27/2018 None Annual Medicare Wellness Exam Blood Pressure (self reported) borderline (120/80 - 139/89) 018 None Annual Medicare Wellness Exam Choles terol (self reported) desireable (below 200) 03/27/2018 None Annual Medicare Wellness Exam Depres cele (last 6 months) almost never 03/27/2018 None Annual Medicare Wellness Exam Depres cele or Hopelessness almost never 03/27/2018 None Annual Medicare Wellness Exam Descri be Your Health good 03/27/2018 None Annual Medicare Wellness Exam Exerci se Habits does not exercise 03/27/2018 None Annual Medicare Wellness Exam Handli ng Stress usually len effectively 03/27/2018 None Annual Medicare Wellness Exam Hemagl obin A-1C (self reported) don't know 03/27/2018 No ne Annual Medicare Wellness Exam Hours of Sleep 8 03/27/2018 None Annual Medicare Wellness Exam Intera ction with Friends yes 03/27/2018 None Annual Medicare Wellness Exam Intere sts & Pleasure most of the time 03/27/2018 None Annual Medicare Wellness Exam Life S atisfaction satisfied 03/27/2018 Non e Annual Medicare Wellness Exam Motor Vehicle Safety always fastens seat belt: y 03/27/20 18 None Annual Medicare Wellness Exam Motor Vehicle Safety drives after drinking: n 03/27/2018 None Annual Medicare Wellness Exam Motor Vehicle Safety rides with someone who has been drinking: n 03/27/2018 None Annual Medicare Wellness Exam Nutrition servings of fried food / high fat foods per day: 1 03/27/2018 None Annual Medicare Wellness Exam Nutrition servings of high fiber / whole grain per day: 2 03/27/2018 None Annual Medicare Wellness Exam Nutrition servings of vegetables / fruit per day: 2 03/27/2018 None Annual Medicare Wellness Exam Smokin g and Tobacco Use non smoker 03/27/2018 No ne Annual Medicare Wellness Exam Social & Emotional Support always 03/27/2018 None Annual Medicare Wellness Exam Stress almost never 03/27/2018 None Annual Medicare Wellness Exam Sun Exposure protects skin when outdoors: y 03/27/2018 None hypertension Quality domenic deena hypertension 03/19/2018 None hypertension Onset and Resolution ongoing 03/19/2018 None hypertension Onset of Symptom during adulthood 03/19/2018 None hypertension Blood Pressure Values patient checking blood pressure at home - did not bring in readings 03/19/2018 None hypertension Alleviating Factors medication 03/19/2018 None hypertension Pertinent Findings dizziness 03/19/2018 a little this morning hypertension Pertinent Findings dyspnea 03/19/2018 with exertion hypertension Pertinent Findings edema 03/19/2018 "some" diabetes mellitus Quality non-insulin dependent 03/19/2018 None diabetes mellitus Alleviating Factors medication 03/19/2018 None diabetes mellitus Exacerbating Factors diet 03/19/2018 None diabetes mellitus Pertinent Findings Denies nausea 03/19/2018 None hypertension Quality chr onic 03/19/2018 None diabetes mellitus Test results Pt not checking blood glucose readings at home 03/19/2018 -Will check once in a while hip pain Location on the left 03/19/2018 None hip pain Onset and Resolution ongoing 03/19/2018 None hip pain Onset of Symptom months ago 03/19/2018 None hip pain Quality intermi ttent 03/19/2018 None hip pain Frequency of Episodes daily 03/19/2018 None hip pain Limitation on Activities allows ambulation 03/19/2018 None hip pain Limitation on Activities allows weight bearing activity 03/19/2018 None hip pain Alleviating Factors rest 03/19/2018 None hip pain Exacerbating Factors activity 03/19/2018 None cough Quality acute 03/19/2018 None cough Quality intermitte nt 03/19/2018 None cough Quality productive 03/19/2018 None cough Onset and Resolution sudden in onset 03/19/2018 None cough Pertinent Findings Denies chills 03/19/2018 None cough Pertinent Findings Denies fever 03/19/2018 None cough Pertinent Findings sputum production 03/19/2018 (greenish) cough Onset of Symptom ~ 1 weeks ago 03/19/2018 None joint complaint Location in both hips 01/30/2018 None joint complaint Location in the lumbar spine 01/30/2018 None joint complaint Location on both shoulders 01/30/2018 None joint complaint Quality constant 01/30/2018 None joint complaint Onset and Resolution ongoing 01/30/2018 None joint complaint Onset of Symptom 2 weeks ago 01/30/2018 None joint complaint Pertinent Findings Denies joint redness 01/30/2018 None joint complaint Pertinent Findings Denies osteoarthritis 01/30/2018 None joint complaint Pertinent Findings tick bite 01/30/2018 2013 fatigue Quality worsening 12/26/2017 None fatigue Onset and Resolution ongoing 12/26/2017 None fatigue Onset of Symptom 2 weeks ago 12/26/2017 None fatigue Limitation on Activities moderately limits activities 12/26/2017 None fatigue Pertinent Findings back pain 12/26/2017 None fatigue Pertinent Findings Denies dizziness 12/26/2017 None fatigue Pertinent Findings dyspnea 12/26/2017 some with exertion joint complaint Location in both hips 12/26/2017 None joint complaint Location in the lumbar spine 12/26/2017 None joint complaint Location on both shoulders 12/26/2017 None joint complaint Quality constant 12/26/2017 None joint complaint Onset and Resolution ongoing 12/26/2017 None joint complaint Onset of Symptom 2 weeks ago 12/26/2017 None joint complaint Pertinent Findings Denies joint redness 12/26/2017 None joint complaint Pertinent Findings Denies osteoarthritis 12/26/2017 None joint complaint Pertinent Findings tick bite 12/26/2017 2013 Hospital Follow Up _ car diac disease 11/21/2017 None Hospital Follow Up Quality acute 11/21/2017 None Hospital Follow Up Severity moderate 11/21/2017 None Hospital Follow Up Pertinent Findings Denies fever 11/21/2017 None Hospital Follow Up Exacerbating Factors exertion 11/21/2017 None gastroesophageal reflux Quality intermittent 10/19/2017 None gastroesophageal reflux Quality heartburn 10/19/2017 None gastroesophageal reflux Quality regurgitation of acid 10/19/2017 None gastroesophageal reflux Onset and Re solution sudden in onset 10/19/2017 None gastroesophageal reflux Onset of Symptom 2 days ago 10/19/2017 None gastroesophageal reflux Timing of Episodes in the morning 10/19/2017 None gastroesophageal reflux Timing of Episodes in the afternoon 10/19/2017 None gastroesophageal reflux Timing of Episodes in the evening 10/19/2017 None gastroesophageal reflux Alleviating Factor s proton pump inhibitor 10/19/2017 None 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 09/18/2017 None hypertension Onset and Resolution ongoing 09/18/2017 None hypertension Onset of Symptom during adulthood 09/18/2017 None hypertension Blood Pressure Values patient checking blood pressure at home - did not bring in readings 09/18/2017 None hypertension Alleviating Factors medication 09/18/2017 None hypertension Pertinent Findings Denies dizziness 09/18/2017 None hypertension Pertinent Findings dyspnea 09/18/2017 with exertion hypertension Pertinent Findings edema 09/18/2017 "some" diabetes mellitus Quality non-insulin dependent 09/18/2017 None diabetes mellitus Alleviating Factors medication 09/18/2017 None diabetes mellitus Exacerbating Factors diet 09/18/2017 None diabetes mellitus Pertinent Findings Denies nausea 09/18/2017 None diabetes mellitus Test results Pt not checking blood glucose readings at home 09/18/2017 None Hospital Follow Up _ inf ection 07/21/2017 None Hospital Follow Up _ Oth er: sepsis, UTI 07/21/2017 None Hospital Follow Up Quality acute illness 07/21/2017 None Hospital Follow Up Pertinent Findings fever 07/21/2017 None Hospital Follow Up Pertinent Findings other neurologic symptoms 07/21/2017 None Hospital Follow Up Pertinent Findings pain 07/21/2017 None 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 05/04/2017 None hypertension Onset and Resolution ongoing 05/04/2017 None hypertension Onset of Symptom during adulthood 05/04/2017 None hypertension Blood Pressure Values patient checking blood pressure at home - did not bring in readings 05/04/2017 --140's/80's at home per patient report hypertension Alleviating Factors medication 05/04/2017 None hypertension Pertinent Findings Denies dizziness 05/04/2017 None hypertension Pertinent Findings decreased energy 05/04/2017 None hypertension Pertinent Findings dyspnea 05/04/2017 "some" with exertion hypertension Pertinent Findings edema 05/04/2017 None Hospital Follow Up _ Oth er: near-syncopal episode, hypertension, bradycardia 03/30/2017 None Hospital Follow Up Quality acute 03/30/2017 None Hospital Follow Up Onset of Symptom 12 days ago 03/30/2017 None hypertension Onset and Resolution ongoing 03/02/2017 None hypertension Onset of Symptom during adulthood 03/02/2017 None hypertension Blood Pressure Values patient checking blood pressure at home - did not bring in readings 03/02/2017 -Checks occasionally hypertension Alleviating Factors medication 03/02/2017 None hypertension Pertinent Findings Denies dizziness 03/02/2017 None hypertension Pertinent Findings dyspnea 03/02/2017 with exertion hypertension Pertinent Findings edema 03/02/2017 None diabetes mellitus Quality non-insulin dependent 03/02/2017 None diabetes mellitus Alleviating Factors medication 03/02/2017 None diabetes mellitus Exacerbating Factors diet 03/02/2017 None diabetes mellitus Pertinent Findings Denies nausea 03/02/2017 None foot pain Location on th e right 03/02/2017 None foot pain Location in th e heel 03/02/2017 None foot pain Quality acute 03/02/2017 None foot pain Onset of Symptom approx. 1 month ago 03/02/2017 None foot pain Limitation on Activities allows weight bearing activity 03/02/2017 None vertigo Quality intermit tent 03/02/2017 None vertigo Onset and Resolution ongoing 03/02/2017 None vertigo Pertinent Findings dizziness 03/02/2017 None fatigue Onset and Resolution gradual in onset 03/02/2017 None fatigue Onset and Resolution ongoing 03/02/2017 None fatigue Onset of Symptom _ months ago 03/02/2017 None fatigue Pertinent Findings Denies confusion 03/02/2017 None fatigue Pertinent Findings dizziness 03/02/2017 None fatigue Pertinent Findings Denies insomnia 03/02/2017 None fatigue Pertinent Findings Denies syncope 03/02/2017 None fatigue Pertinent Findings Denies tachycardia 03/02/2017 None fatigue Pertinent Findings Denies weakness 03/02/2017 None fatigue Pertinent Findings weight loss 03/02/2017 None vertigo Quality intermit tent 01/31/2017 None vertigo Onset and Resolution ongoing 01/31/2017 None fatigue Onset and Resolution gradual in onset 01/31/2017 None fatigue Onset and Resolution ongoing 01/31/2017 None fatigue Onset of Symptom _ months ago 01/31/2017 None fatigue Pertinent Findings dizziness 01/31/2017 None fatigue Pertinent Findings Denies confusion 01/31/2017 None fatigue Pertinent Findings Denies insomnia 01/31/2017 None fatigue Pertinent Findings Denies syncope 01/31/2017 None fatigue Pertinent Findings Denies tachycardia 01/31/2017 None fatigue Pertinent Findings Denies weakness 01/31/2017 None fatigue Pertinent Findings weight loss 01/31/2017 None vertigo Pertinent Findings dizziness 01/31/2017 None hypertension Onset and Resolution ongoing 10/25/2016 None hypertension Onset of Symptom during adulthood 10/25/2016 None hypertension Blood Pressure Values patient checking blood pressure at home - did not bring in readings 10/25/2016 -Checks occasionally hypertension Alleviating Factors medication 10/25/2016 None hypertension Pertinent Findings Denies dizziness 10/25/2016 None hypertension Pertinent Findings dyspnea 10/25/2016 with exertion hypertension Pertinent Findings edema 10/25/2016 None diabetes mellitus Quality non-insulin dependent 10/25/2016 None diabetes mellitus Test results Pt not checking blood glucose readings at home 10/25/2016 None diabetes mellitus Glucose monitoring does not test 10/25/2016 None diabetes mellitus Alleviating Factors medication 10/25/2016 None diabetes mellitus Exacerbating Factors diet 10/25/2016 None diabetes mellitus Pertinent Findings Denies nausea 10/25/2016 None foot pain Location on th e right 10/25/2016 None foot pain Location in th e heel 10/25/2016 None foot pain Quality acute 10/25/2016 None foot pain Onset of Symptom approx. 1 month ago 10/25/2016 None foot pain Limitation on Activities allows weight bearing activity 10/25/2016 None fatigue Onset and Resolution sudden in onset 07/27/2016 None fatigue Onset of Symptom 2 months ago 07/27/2016 None fatigue Limitation on Activities moderately limits activities 07/27/2016 None fatigue Triggers exertion 07/27/2016 None fatigue Exacerbating Factors medication 07/27/2016 None gait abnormality Quality acute 07/27/2016 None gait abnormality Quality unsteady 07/27/2016 None gait abnormality Onset and Resolution ongoing 07/27/2016 None gait abnormality Pertinent Findings motor weakness 07/27/2016 None fatigue Frequency of Episodes decreasing 07/27/2016 None fatigue Onset and Resolution sudden in onset 05/26/2016 None fatigue Onset of Symptom 2 months ago 05/26/2016 None fatigue Limitation on Activities moderately limits activities 05/26/2016 None fatigue Frequency of Episodes daily 05/26/2016 None fatigue Triggers exertion 05/26/2016 None fatigue Exacerbating Factors medication 05/26/2016 None gait abnormality Quality unsteady 05/12/2016 None gait abnormality Quality acute 05/12/2016 None gait abnormality Onset and Resolution ongoing 05/12/2016 None gait abnormality Pertinent Findings motor weakness 05/12/2016 None gait abnormality Assistive devices cane 05/12/2016 None back pain Location in th e left lower back area 02/23/2016 None back pain Location in th e right lower back area 02/23/2016 None back pain Quality aching 02/23/2016 None back pain Quality interm ittent 02/23/2016 None back pain Onset and Resolution ongoing 02/23/2016 None back pain Onset of Symptom months ago 02/23/2016 None back pain Limitation on Activities does not limit activities 02/23/2016 None back pain Initial treatment physical therapy 02/23/2016 None dyspnea Onset and Resolution ongoing 02/23/2016 None dyspnea Quality shortnes s of breath 02/23/2016 None dyspnea Quality intermit tent 02/23/2016 None dyspnea Alleviating Factors rest 02/23/2016 None dyspnea Exacerbating Factors exertion 02/23/2016 None hypertension Onset and Resolution ongoing 02/23/2016 None hypertension Onset of Symptom during adulthood 02/23/2016 None hypertension Blood Pressure Values not checking blood pressure at home 02/23/2016 - not often hypertension Alleviating Factors medication 02/23/2016 None hypertension Pertinent Findings Denies dizziness 02/23/2016 None hypertension Pertinent Findings dyspnea 02/23/2016 None hypertension Pertinent Findings edema 02/23/2016 None blood pressure followup Quality primary hypertension 12/10/2015 None blood pressure followup Onset and Re solution ongoing 12/10/2015 None blood pressure followup Onset of Symptom 1 months ago 12/10/2015 None blood pressure followup Blood Pressu re Values pt checking blood pressure at home, did not bring in to clinic 12/10/2015 None blood pressure followup Frequency of Episodes daily 12/10/2015 None blood pressure followup Alleviating Factor s medication 12/10/2015 None blood pressure followup Pertinent Findings Denies dizziness 12/10/2015 None blood pressure followup Pertinent Findings dyspnea 12/10/2015 with exertion blood pressure followup Pertinent Findings edema 12/10/2015 None back pain Location in th e left lower back area 11/10/2015 None back pain Location in th e right lower back area 11/10/2015 None back pain Quality interm ittent 11/10/2015 None back pain Onset and Resolution ongoing 11/10/2015 None back pain Onset of Symptom months ago 11/10/2015 None back pain Limitation on Activities does not limit activities 11/10/2015 None back pain Initial treatment physical therapy 11/10/2015 None back pain Quality aching 11/10/2015 None back pain Location in th e right lower back area 08/07/2015 None back pain Onset and Resolution ongoing 08/07/2015 None back pain Onset of Symptom _ months ago 08/07/2015 None back pain Limitation on Activities does not limit activities 08/07/2015 None back pain Location in th e left lower back area 08/07/2015 None back pain Quality interm ittent 08/07/2015 None back pain Quality improv ing 08/07/2015 None back pain Initial treatment physical therapy 08/07/2015 None back pain Quality consta nt 07/07/2015 None back pain Quality worsen ing 07/07/2015 None back pain Location in th e right lower back area 07/07/2015 None back pain Onset and Resolution ongoing 07/07/2015 None back pain Onset of Symptom _ months ago 07/07/2015 None back pain Limitation on Activities does not limit activities 07/07/2015 None Hospital Follow Up _ Oth er: for hypertensive crisis and atrial fibrillation 07/07/2015 2 separate hospital visits he states that he has been checking his blood pressure at home and it has been running "okay" running in the 140-150/60-70 range. Hospital Follow Up Quality acute 07/07/2015 None Hospital Follow Up Alleviating Factors medication 07/07/2015 None arrhythmia Quality acute 07/07/2015 None arrhythmia Quality irreg ular beats 07/07/2015 atrial fibrillation arrhythmia Onset and Resolution resolved 07/07/2015 None arrhythmia Alleviating Factors medication 07/07/2015 amiodarone ingrown toenail Quality sharp pain 04/02/2015 None ingrown toenail Onset of Symptom 3 months ago 04/02/2015 Left big toe ingrown toenail Pertinent Findings redness 04/02/2015 None ingrown toenail Pertinent Findings Denies swelling 04/02/2015 None ingrown toenail Pertinent Findings Denies fever 04/02/2015 None gastroesophageal reflux Quality heartburn 04/02/2015 None gastroesophageal reflux Onset of Symptom 3 days ago 04/02/2015 None gastroesophageal reflux Pertinent Findings Denies cough 04/02/2015 None gastroesophageal reflux Pertinent Findings dysphagia 04/02/2015 No trouble swalling but feels like food gets stuck in his throat. hypertension Quality chr onic 12/23/2014 None hypertension Onset and Resolution ongoing 12/23/2014 None hypertension Blood Pressure Values patient checking blood pressure at home - did not bring in readings 12/23/2014 Says he takes his blood pressure occasio mirtha. Said that they ran high while in hospital.he states that at home his blood pressure has been running in the 140/80's hypertension Pertinent Findings Denies dizziness 12/23/2014 None hypertension Pertinent Findings dyspnea 12/23/2014 he says he is always shor t of breath. hypertension Pertinent Findings edema 12/23/2014 says he is out of lasix, but didnt think that it helped diabetes mellitus Quality non-insulin dependent 12/23/2014 None diabetes mellitus Quality chronic 12/23/2014 None diabetes mellitus Pertinent Findings Denies dizziness 12/23/2014 None fatigue Onset and Resolution ongoing 12/23/2014 None fatigue Limitation on Activities moderately limits activities 12/23/2014 None hypertension Quality chr onic 10/22/2014 None hypertension Onset and Resolution ongoing 10/22/2014 None hypertension Blood Pressure Values patient checking blood pressure at home - did not bring in readings 10/22/2014 Says he takes his blood pressure occasio mirtha. Said that they ran high while in hospital.he states that at home his blood pressure has been running in the 140/80's hypertension Pertinent Findings Denies dizziness 10/22/2014 None hypertension Pertinent Findings dyspnea 10/22/2014 he says he is always shor t of breath. hypertension Pertinent Findings edema 10/22/2014 says he is out of lasix, but didnt think that it helped diabetes mellitus Quality non-insulin dependent 10/22/2014 None diabetes mellitus Quality chronic 10/22/2014 None diabetes mellitus Pertinent Findings Denies dizziness 10/22/2014 None fever Onset of Symptom 1 days ago 09/26/2014 None fever Temperature 101 de grees 09/26/2014 None fever Pertinent Findings cough 09/26/2014 None cough Quality productive 09/26/2014 greenish yellow cough Onset of Symptom 2 days ago 09/26/2014 None cough Pertinent Findings dyspnea 09/26/2014 ongoing cough Pertinent Findings Denies chest discomfort 09/26/2014 None cough Pertinent Findings fever 09/26/2014 None cough Pertinent Findings Denies nasal congestion 09/26/2014 None cough Pertinent Findings sputum production 09/26/2014 greenish yellow fever Quality acute 09/26/2014 None fever Onset and Resolution ongoing 09/26/2014 None fever Triggers no known associated factors 09/26/2014 None fever Pertinent Findings upper respiratory tract symptoms 09/26/2014 None cough Onset and Resolution ongoing 09/26/2014 None cough Location in the th roat 09/26/2014 None cough Location in the jose ng 09/26/2014 None cough Triggers no known associated factors 09/26/2014 None hypertension Quality chr onic 07/01/2014 None hypertension Onset and Resolution ongoing 07/01/2014 None hypertension Blood Pressure Values patient checking blood pressure at home - did not bring in readings 07/01/2014 Says he takes his blood pressure occasio mirtha. Said that they ran high while in hospital.he states that at home his blood pressure has been running in the 140/80's hypertension Pertinent Findings Denies dizziness 07/01/2014 None hypertension Pertinent Findings dyspnea 07/01/2014 he says he is always shor t of breath. hypertension Pertinent Findings edema 07/01/2014 says he is out of lasix, but didnt think that it helped diabetes mellitus Quality non-insulin dependent 07/01/2014 None diabetes mellitus Quality chronic 07/01/2014 None diabetes mellitus Pertinent Findings Denies dizziness 07/01/2014 None hypertension Quality chr onic 06/09/2014 None hypertension Onset and Resolution ongoing 06/09/2014 None hypertension Blood Pressure Values patient checking blood pressure at home - did not bring in readings 06/09/2014 Says he takes his blood pressure occasio mirtha. Said that they ran high while in hospital.he states that at home his blood pressure has been running in the 140/80's hypertension Pertinent Findings Denies dizziness 06/09/2014 None hypertension Pertinent Findings dyspnea 06/09/2014 he says he is always shor t of breath. hypertension Pertinent Findings edema 06/09/2014 says he is out of lasix, but didnt think that it helped diabetes mellitus Quality non-insulin dependent 06/09/2014 None diabetes mellitus Quality chronic 06/09/2014 None diabetes mellitus Pertinent Findings Denies dizziness 06/09/2014 None diabetes mellitus Test results Pt checking blood glucose readings, did not bring results to clinic 06/09/2014 only tests PRN dysuria Quality burning 05/07/2014 Not having any burning on urination toda y, but had some yesterday. urinary urgency Quality acute 05/07/2014 None urinary urgency Onset and Resolution ongoing 05/07/2014 None hypertension Quality chr onic 05/07/2014 None hypertension Onset and Resolution ongoing 05/07/2014 None hypertension Blood Pressure Values patient checking blood pressure at home - did not bring in readings 05/07/2014 Says he takes his blood pressure occasio mirtha. Said that they ran high while in hospital. diabetes mellitus Quality non-insulin dependent 05/07/2014 None diabetes mellitus Quality chronic 05/07/2014 None urinary frequency Quality improving 05/07/2014 None hypertension Pertinent Findings Denies dizziness 05/07/2014 None hypertension Pertinent Findings dyspnea 05/07/2014 he says he is always shor t of breath. hypertension Pertinent Findings edema 05/07/2014 says he is out of lasix, but didnt think that it helped diabetes mellitus Test results Pt checking blood glucose readings, did not bring results to clinic 05/07/2014 checks in the morning and is always unde r 100 diabetes mellitus Glucose monitoring occasional glucose testing 05/07/2014 None diabetes mellitus Pertinent Findings Denies dizziness 05/07/2014 None dysuria Quality burning 04/21/2014 None dysuria Quality worsening 04/21/2014 None dysuria Onset and Resolution ongoing 04/21/2014 None dysuria Onset of Symptom 2 days ago 04/21/2014 None urinary frequency Quality acute 04/21/2014 None urinary frequency Onset and Resolution ongoing 04/21/2014 None urinary frequency Onset of Symptom 2 days ago 04/21/2014 None urinary frequency Limitation on Activities moderately limits activities 04/21/2014 None urinary frequency Triggers no known associated factors 04/21/2014 None urinary urgency Quality acute 04/21/2014 None urinary urgency Onset and Resolution ongoing 04/21/2014 None urinary urgency Onset of Symptom 3 days ago 04/21/2014 None nausea Onset and Resolution ongoing 04/21/2014 None nausea Onset of Symptom 2 days ago 04/21/2014 None nausea Severity mild 04/21/2014 None nausea Triggers no known associated factors 04/21/2014 None nausea Quality acute 04/21/2014 None nausea Pertinent Findings Denies bloating 04/21/2014 None nausea Pertinent Findings chills 04/21/2014 None nausea Pertinent Findings Denies cough 04/21/2014 None nausea Pertinent Findings dyspnea 04/21/2014 - chronic - nausea Pertinent Findings fever 04/21/2014 None vomiting Onset of Symptom 1-2 days ago 04/21/2014 - no more vomitting e Monday - skin lesion Onset and Resolution ongoing 02/14/2014 None skin lesion Onset of Symptom 1 weeks ago 02/14/2014 None skin lesion Significant Medical Conditions trauma 02/14/2014 tick bite skin lesion Pertinent Findings Denies ecchymotic 02/14/2014 None skin lesion Pertinent Findings Denies fever 02/14/2014 None skin lesion Location ant erior left lower leg 02/14/2014 None hypertension Quality chr onic 01/16/2014 None hypertension Onset and Resolution ongoing 01/16/2014 None hypertension Blood Pressure Values patient checking blood pressure at home - did not bring in readings 01/16/2014 None diabetes mellitus Quality non-insulin dependent 01/16/2014 None diabetes mellitus Quality chronic 01/16/2014 None diabetes mellitus Test results Pt checking blood glucose readings, did not bring results to clinic 01/16/2014 None shoulder pain Location o n both shoulders 01/16/2014 states can't raise left a rm above shoulder height shoulder pain Quality wo rsening 01/16/2014 None chest pain/pressure Location in the substernal area 11/14/2013 None chest pain/pressure Exacerbating Factors exertion 11/14/2013 None diabetes mellitus Quality non-insulin dependent 11/14/2013 None diabetes mellitus Quality chronic 11/14/2013 None diabetes mellitus Test results Pt checking blood glucose readings, did not bring results to clinic 11/14/2013 None fatigue Quality chronic 11/14/2013 None fatigue Quality worsening 11/14/2013 None hypertension Quality chr onic 11/14/2013 None hypertension Onset and Resolution ongoing 11/14/2013 None hypertension Blood Pressure Values patient checking blood pressure at home - did not bring in readings 11/14/2013 None hypertension Quality chr onic 10/24/2013 None hypertension Pertinent Findings Denies dizziness 10/24/2013 None hypertension Pertinent Findings dyspnea 10/24/2013 None hypertension Pertinent Findings edema 10/24/2013 None hypertension Pertinent Findings Denies palpitations 10/24/2013 None diabetes mellitus Test results Pt checking blood glucose readings, did not bring results to clinic 10/24/2013 None diabetes mellitus Pertinent Findings nausea 10/24/2013 None hypertension Pertinent Findings decreased energy 10/24/2013 None hypertension Blood Pressure Values patient checking blood pressure at home - did not bring in readings 10/24/2013 at home bp 140/70's hypertension Onset and Resolution ongoing 10/24/2013 None hypertension Onset of Symptom during adulthood 10/24/2013 None chest pain/pressure Quality chronic 06/24/2013 None chest pain/pressure Location in the epigastric area 06/24/2013 no relief with carafate chest pain/pressure Onset of Symptom 1 months ago 06/24/2013 None chest pain/pressure Alleviating Factors rest 06/24/2013 None chest pain/pressure Onset and Resolution ongoing 06/24/2013 states has it on a daily basis and lasts different lengths of time. can't walk up stairs without pain chest pain/pressure Pertinent Findings dyspnea 06/24/2013 None chest pain/pressure Pertinent Findings dyspnea on exertion 06/24/2013 None chest pain/pressure Pertinent Findings Denies lightheadedness 06/24/2013 None hypertension Quality chr onic 06/05/2013 None hypertension Onset and Resolution ongoing 06/05/2013 None hypertension Blood Pressure Values patient checking blood pressure at home - did not bring in readings 06/05/2013 None hypertension Pertinent Findings Denies dizziness 06/05/2013 None hypertension Pertinent Findings dyspnea 06/05/2013 None hypertension Pertinent Findings edema 06/05/2013 None diabetes mellitus Quality non-insulin dependent 06/05/2013 None diabetes mellitus Glucose monitoring occasional glucose testing 06/05/2013 None diabetes mellitus Test results Pt checking blood glucose readings, did not bring results to clinic 06/05/2013 None diabetes mellitus Blood glucose levels between 60 and 120 06/05/2013 None diabetes mellitus Pertinent Findings Denies behavioral changes 06/05/2013 None diabetes mellitus Pertinent Findings Denies increased hunger 06/05/2013 None diabetes mellitus Pertinent Findings lethargy 06/05/2013 None diabetes mellitus Pertinent Findings Denies mental status change 06/05/2013 None diabetes mellitus Pertinent Findings Denies nausea 06/05/2013 None diabetes mellitus Quality non-insulin dependent 04/01/2013 None diabetes mellitus Nutrition regular diet 04/01/2013 None diabetes mellitus Nutrition ADA diet 04/01/2013 None diabetes mellitus Pertinent Findings Denies dehydration 04/01/2013 None diabetes mellitus Pertinent Findings Denies dizziness 04/01/2013 None diabetes mellitus Pertinent Findings Denies increased hunger 04/01/2013 None diabetes mellitus Pertinent Findings Denies lethargy 04/01/2013 None diabetes mellitus Pertinent Findings Denies mental status change 04/01/2013 None diabetes mellitus Pertinent Findings Denies nausea 04/01/2013 None diabetes mellitus Pertinent Findings Denies tingling 04/01/2013 None hypertension Quality chr onic 04/01/2013 None hypertension Onset and Resolution ongoing 04/01/2013 None hypertension Blood Pressure Values patient checking blood pressure at home - did not bring in readings 04/01/2013 None hypertension Alleviating Factors medication 04/01/2013 None hypertension Pertinent Findings Denies decreased energy 04/01/2013 None hypertension Pertinent Findings Denies dizziness 04/01/2013 None hypertension Pertinent Findings Denies nausea 04/01/2013 None hypertension Pertinent Findings Denies orthostatic hypotension 04/01/2013 None hypertension Pertinent Findings Denies palpitations 04/01/2013 None hypertension Pertinent Findings Denies tachycardia 04/01/2013 None diabetes mellitus Test results Pt checking blood glucose readings, did not bring results to clinic 04/01/2013 None hypertension Frequency of Episodes increasing 04/01/2013 concerned about bp rising. states since HCTZ was stopped due to kidney function his blood pressure has been gradually increasing Hospital Follow Up Quality acute illness 01/29/2013 None Hospital Follow Up Onset and Resolution improved but gets fatigued easily 01/29/2013 None Hospital Follow Up Severity moderate 01/29/2013 None Hospital Follow Up Pertinent Findings other arthralgias 01/29/2013 None Hospital Follow Up Pertinent Findings Denies other neurologic symptoms 01/29/2013 None Hospital Follow Up Pertinent Findings Denies pain 01/29/2013 None Hospital Follow Up Alleviating Factors medication 01/29/2013 IV and oral doxycycline edema Quality painless 12/25/2012 None edema Quality pitting 12/25/2012 None edema Onset and Resolution ongoing 12/25/2012 None edema Quality worsening 12/25/2012 None edema Location on both a nkles 12/25/2012 None edema Pertinent Findings Denies limb pain / tenderness 12/25/2012 None edema Pertinent Findings Denies limb redness 12/25/2012 None edema Pertinent Findings Denies dyspnea 12/25/2012 None edema Triggers diet [facility] 12/25/2012 None edema Exacerbating Factors salty foods 12/25/2012 None edema Exacerbating Factors standing 12/25/2012 None diabetes mellitus Quality non-insulin dependent 10/01/2012 None diabetes mellitus Test results Pt checking blood glucose readings, did not bring results to clinic 10/01/2012 None diabetes mellitus Glucose monitoring occasional glucose testing 10/01/2012 None diabetes mellitus Nutrition regular diet 10/01/2012 None diabetes mellitus Nutrition ADA diet 10/01/2012 None diabetes mellitus Pertinent Findings Denies dizziness 10/01/2012 None diabetes mellitus Pertinent Findings Denies dehydration 10/01/2012 None diabetes mellitus Pertinent Findings Denies increased hunger 10/01/2012 None diabetes mellitus Pertinent Findings Denies lethargy 10/01/2012 None diabetes mellitus Pertinent Findings Denies mental status change 10/01/2012 None diabetes mellitus Pertinent Findings Denies nausea 10/01/2012 None diabetes mellitus Pertinent Findings Denies tingling 10/01/2012 None hypertension Quality chr onic 10/01/2012 None hypertension Onset and Resolution ongoing 10/01/2012 None hypertension Blood Pressure Values patient checking blood pressure at home - did not bring in readings 10/01/2012 None hypertension Alleviating Factors medication 10/01/2012 None hypertension Pertinent Findings Denies decreased energy 10/01/2012 None hypertension Pertinent Findings Denies dizziness 10/01/2012 None hypertension Pertinent Findings Denies orthostatic hypotension 10/01/2012 None hypertension Pertinent Findings Denies palpitations 10/01/2012 None hypertension Pertinent Findings Denies tachycardia 10/01/2012 None hypertension Pertinent Findings Denies nausea 10/01/2012 None cough Location in the th roat 06/29/2012 None cough Quality dry 06/29/2012 None cough Onset and Resolution gradual in onset 06/29/2012 None cough Onset of Symptom 1 months ago 06/29/2012 None cough Pertinent Findings chest discomfort 06/29/2012 None cough Onset and Resolution ongoing 06/29/2012 None cough Limitation on Activities does not limit activities 06/29/2012 None cough Frequency of Episodes unchanged 06/29/2012 None cough Triggers no known associated factors 06/29/2012 None cough Pertinent Findings dyspnea 06/29/2012 None cough Pertinent Findings hoarseness 06/29/2012 None cough Pertinent Findings Denies lethargy 06/29/2012 None cough Pertinent Findings Denies nausea 06/29/2012 None cough Pertinent Findings Denies purulent sputum 06/29/2012 None cough Pertinent Findings sputum production 06/29/2012 None cough Location in the jose ng 05/28/2012 None cough Quality acute 05/28/2012 None cough Quality productive 05/28/2012 None cough Onset and Resolution sudden in onset 05/28/2012 None cough Onset of Symptom 1 weeks ago 05/28/2012 None diabetes mellitus Quality non-insulin dependent 04/02/2012 None diabetes mellitus Severity mild 04/02/2012 None diabetes mellitus Quality chronic 04/02/2012 None diabetes mellitus Onset of Symptom onset as an adult 04/02/2012 None diabetes mellitus Alleviating Factors medication 04/02/2012 None diabetes mellitus Alleviating Factors diet 04/02/2012 None diabetes mellitus Alleviating Factors exercise 04/02/2012 None diabetes mellitus Nutrition ADA diet 04/02/2012 None cholesterol followup Quality chronic 04/02/2012 None cholesterol followup Onset and Resolution ongoing 04/02/2012 None cholesterol followup Onset of Symptom during adulthood 04/02/2012 None cholesterol followup Frequency of Episodes unchanged 04/02/2012 None cholesterol followup Triggers no known associated factors 04/02/2012 None cholesterol followup Alleviating Factors medication 04/02/2012 None blood pressure followup Quality chronic 04/02/2012 None blood pressure followup Onset and Re solution ongoing 04/02/2012 None blood pressure followup Onset of Symptom during adulthood 04/02/2012 None blood pressure followup Blood Pressu re Values not checking blood pressure at home 04/02/2012 None blood pressure followup Frequency of Episodes unchanged 04/02/2012 Non e blood pressure followup Alleviating Factor s exercise 04/02/2012 None blood pressure followup Alleviating Factor s medication 04/02/2012 None sore throat Location dif fusely 01/24/2012 None sore throat Quality wors ening 01/24/2012 None sore throat Onset of Symptom 3 days ago 01/24/2012 None cough Location in the jose ng 01/24/2012 None cough Onset and Resolution gradual in onset 01/24/2012 None cough Onset of Symptom 3 weeks ago 01/24/2012 None sore throat Onset and Resolution ongoing 01/24/2012 None sore throat Limitation on Activities does not limit oral intake 01/24/2012 None sore throat Frequency of Episodes increasing 01/24/2012 None sore throat Triggers no known associated factors 01/24/2012 None cough Limitation on Activities does not limit activities 01/24/2012 None cough Quality acute 01/24/2012 None cough Frequency of Episodes unchanged 01/24/2012 None cough Triggers no known associated factors 01/24/2012 None blood pressure followup Alleviating Factor s medication 10/03/2011 None blood pressure followup Alleviating Factor s exercise 10/03/2011 None blood pressure followup Blood Pressu re Values not checking blood pressure at home 10/03/2011 None blood pressure followup Frequency of Episodes unchanged 10/03/2011 Non e blood pressure followup Onset and Re solution ongoing 10/03/2011 None blood pressure followup Onset of Symptom during adulthood 10/03/2011 None blood pressure followup Quality chronic 10/03/2011 None cholesterol followup Alleviating Factors medication 10/03/2011 None cholesterol followup Frequency of Episodes unchanged 10/03/2011 None cholesterol followup Onset and Resolution ongoing 10/03/2011 None cholesterol followup Onset of Symptom during adulthood 10/03/2011 None cholesterol followup Quality chronic 10/03/2011 None cholesterol followup Triggers no known associated factors 10/03/2011 None diabetes mellitus Alleviating Factors medication 10/03/2011 None diabetes mellitus Alleviating Factors exercise 10/03/2011 None diabetes mellitus Alleviating Factors diet 10/03/2011 None diabetes mellitus Glucose monitoring fasting 10/03/2011 None diabetes mellitus Nutrition ADA diet 10/03/2011 None diabetes mellitus Onset of Symptom onset as an adult 10/03/2011 None diabetes mellitus Quality chronic 10/03/2011 None diabetes mellitus Test results HgbA1c level _ 10/03/2011 None diabetes mellitus Severity mild 10/03/2011 None diabetes mellitus Exercise moderate exercise 10/03/2011 walking 30 - 40 minutes d [employer], and golfing. diabetes mellitus Quality non-insulin dependent 05/30/2011 None diabetes mellitus Onset of Symptom onset as an adult 05/30/2011 None diabetes mellitus Severity mild 05/30/2011 None diabetes mellitus Blood glucose levels between 60 and 120 05/30/2011 None diabetes mellitus Glucose monitoring daily 05/30/2011 None diabetes mellitus Exercise minimal exercise 05/30/2011 None Symptom Name Status Resu lt Effective Date Notes Quality chronic 10/08/2018 None Quality primary hypert ension 10/08/2018 None Quality stable 10/08/2018 None Onset and Resolution o ngoing 10/08/2018 None Onset of Symptom durin g adulthood 10/08/2018 None Blood Pressure Values patient checking blood pressure at home - did not bring in readings 10/08/2018 None Alleviating Factors me dication 10/08/2018 None Pertinent Findings Den ies dizziness 10/08/2018 None Pertinent Findings dys pnea 10/08/2018 with exertion Pertinent Findings brynn ma 10/08/2018 "some"- but not as bad as it was Quality non-insulin de pendent 10/08/2018 None Exacerbating Factors d iet 10/08/2018 None Pertinent Findings Den ies nausea 10/08/2018 None Location on the left 10/08/2018 None Quality intermittent 10/08/2018 None Onset of Symptom frankie hs ago 10/08/2018 None Frequency of Episodes daily 10/08/2018 None Limitation on Activities allows ambulation 10/08/2018 None Limitation on Activities allows weight bearing activity 10/08/2018 [address]leviating Factors re st 10/08/2018 None Exacerbating Factors a ctivity 10/08/2018 None Location on the right 09/27/2018 None Quality constant 09/27/2018 None Quality worsening 09/27/2018 None Onset and Resolution o ngoing 09/27/2018 None Onset of Symptom 3-4 w eeks ago 09/27/2018 None Frequency of Episodes daily 09/27/2018 None Frequency of Episodes increasing 09/27/2018 None Alleviating Factors re st 09/27/2018 None Exacerbating Factors w eight bearing 09/27/2018 None Exacerbating Factors a ctivity 09/27/2018 None Location Right Hip 09/11/2018 None Location on the right ankle 09/11/2018 None Location on the right knee 09/11/2018 None Quality aching 09/11/2018 None Quality intermittent 09/11/2018 None Quality sharp pain 09/11/2018 None Onset and Resolution s udden in onset 09/11/2018 None Onset of Symptom 10 da ys ago 09/11/2018 None Limitation on Activities moderately limits activities 09/11/2018 None Frequency of Episodes daily 09/11/2018 None Quality chronic 06/04/2018 None Quality primary hypert ension 06/04/2018 None Onset and Resolution o ngoing 06/04/2018 None Onset of Symptom durin g adulthood 06/04/2018 None Blood Pressure Values patient checking blood pressure at home - did not bring in readings 06/04/2018 None Alleviating Factors me dication 06/04/2018 None Pertinent Findings Den ies dizziness 06/04/2018 None Pertinent Findings dys pnea 06/04/2018 with exertion Pertinent Findings brynn ma 06/04/2018 "some"- but not as bad as it was Quality non-insulin de pendent 06/04/2018 None Exacerbating Factors d iet 06/04/2018 None Pertinent Findings Den ies nausea 06/04/2018 None Location on the left 06/04/2018 None Quality intermittent 06/04/2018 None Onset of Symptom frankie hs ago 06/04/2018 None Frequency of Episodes daily 06/04/2018 None Limitation on Activities allows ambulation 06/04/2018 None Limitation on Activities allows weight bearing activity 06/04/2018 [address] Alleviating Factors re st 06/04/2018 None Exacerbating Factors a ctivity 06/04/2018 None Glucose monitoring occ asional glucose testing 06/04/2018 -does not check often Quality acute 06/04/2018 None Quality productive 06/04/2018 None Quality improving 06/04/2018 None Pertinent Findings spu brendan production 06/04/2018 None Quality stable 06/04/2018 None Annual Medicare Wellness Exam Alcohol Use does not drink any alcohol 03/27/2018 None Annual Medicare Wellness Exam Aspirin Use yes 03/27/2018 None Annual Medicare Wellness Exam Blood Glucose (self reported) desireable (below 100) 03/27/2018 None Annual Medicare Wellness Exam Blood Pressure (self reported) borderline (120/80 - 139/89) 018 None Annual Medicare Wellness Exam Choles terol (self reported) desireable (below 200) 03/27/2018 None Annual Medicare Wellness Exam Depres cele (last 6 months) almost never 03/27/2018 None Annual Medicare Wellness Exam Depres cele or Hopelessness almost never 03/27/2018 None Annual Medicare Wellness Exam Descri be Your Health good 03/27/2018 None Annual Medicare Wellness Exam Exerci se Habits does not exercise 03/27/2018 None Annual Medicare Wellness Exam Handli ng Stress usually len effectively 03/27/2018 None Annual Medicare Wellness Exam Hemagl obin A-1C (self reported) don't know 03/27/2018 No ne Annual Medicare Wellness Exam Hours of Sleep 8 03/27/2018 None Annual Medicare Wellness Exam Intera ction with Friends yes 03/27/2018 None Annual Medicare Wellness Exam Intere sts & Pleasure most of the time 03/27/2018 None Annual Medicare Wellness Exam Life S atisfaction satisfied 03/27/2018 Non e Annual Medicare Wellness Exam Motor Vehicle Safety always fastens seat belt: y 03/27/20 18 None Annual Medicare Wellness Exam Motor Vehicle Safety drives after drinking: n 03/27/2018 None Annual Medicare Wellness Exam Motor Vehicle Safety rides with someone who has been drinking: n 03/27/2018 None Annual Medicare Wellness Exam Nutrition servings of fried food / high fat foods per day: 1 03/27/2018 None Annual Medicare Wellness Exam Nutrition servings of high fiber / whole grain per day: 2 03/27/2018 None Annual Medicare Wellness Exam Nutrition servings of vegetables / fruit per day: 2 03/27/2018 None Annual Medicare Wellness Exam Smokin g and Tobacco Use non smoker 03/27/2018 No ne Annual Medicare Wellness Exam Social & Emotional Support always 03/27/2018 None Annual Medicare Wellness Exam Stress almost never 03/27/2018 None Annual Medicare Wellness Exam Sun Exposure protects skin when outdoors: y 03/27/2018 None 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 03/19/2018 None hypertension Onset and Resolution ongoing 03/19/2018 None hypertension Onset of Symptom during adulthood 03/19/2018 None hypertension Blood Pressure Values patient checking blood pressure at home - did not bring in readings 03/19/2018 None hypertension Alleviating Factors medication 03/19/2018 None hypertension Pertinent Findings dizziness 03/19/2018 a little this morning hypertension Pertinent Findings dyspnea 03/19/2018 with exertion hypertension Pertinent Findings edema 03/19/2018 "some" diabetes mellitus Quality non-insulin dependent 03/19/2018 None diabetes mellitus Alleviating Factors medication 03/19/2018 None diabetes mellitus Exacerbating Factors diet 03/19/2018 None diabetes mellitus Pertinent Findings Denies nausea 03/19/2018 None hypertension Quality chr onic 03/19/2018 None diabetes mellitus Test results Pt not checking blood glucose readings at home 03/19/2018 -Will check once in a while hip pain Location on the left 03/19/2018 None hip pain Onset and Resolution ongoing 03/19/2018 None hip pain Onset of Symptom months ago 03/19/2018 None hip pain Quality intermi ttent 03/19/2018 None hip pain Frequency of Episodes daily 03/19/2018 None hip pain Limitation on Activities allows ambulation 03/19/2018 None hip pain Limitation on Activities allows weight bearing activity 03/19/2018 None hip pain Alleviating Factors rest 03/19/2018 None hip pain Exacerbating Factors activity 03/19/2018 None cough Quality acute 03/19/2018 None cough Quality intermitte nt 03/19/2018 None cough Quality productive 03/19/2018 None cough Onset and Resolution sudden in onset 03/19/2018 None cough Pertinent Findings Denies chills 03/19/2018 None cough Pertinent Findings Denies fever 03/19/2018 None cough Pertinent Findings sputum production 03/19/2018 (greenish) cough Onset of Symptom ~ 1 weeks ago 03/19/2018 None joint complaint Location in both hips 01/30/2018 None joint complaint Location in the lumbar spine 01/30/2018 None joint complaint Location on both shoulders 01/30/2018 None joint complaint Quality constant 01/30/2018 None joint complaint Onset and Resolution ongoing 01/30/2018 None joint complaint Onset of Symptom 2 weeks ago 01/30/2018 None joint complaint Pertinent Findings Denies joint redness 01/30/2018 None joint complaint Pertinent Findings Denies osteoarthritis 01/30/2018 None joint complaint Pertinent Findings tick bite 01/30/2018 2013 fatigue Quality worsening 12/26/2017 None fatigue Onset and Resolution ongoing 12/26/2017 None fatigue Onset of Symptom 2 weeks ago 12/26/2017 None fatigue Limitation on Activities moderately limits activities 12/26/2017 None fatigue Pertinent Findings back pain 12/26/2017 None fatigue Pertinent Findings Denies dizziness 12/26/2017 None fatigue Pertinent Findings dyspnea 12/26/2017 some with exertion joint complaint Location in both hips 12/26/2017 None joint complaint Location in the lumbar spine 12/26/2017 None joint complaint Location on both shoulders 12/26/2017 None joint complaint Quality constant 12/26/2017 None joint complaint Onset and Resolution ongoing 12/26/2017 None joint complaint Onset of Symptom 2 weeks ago 12/26/2017 None joint complaint Pertinent Findings Denies joint redness 12/26/2017 None joint complaint Pertinent Findings Denies osteoarthritis 12/26/2017 None joint complaint Pertinent Findings tick bite 12/26/2017 2013 Hospital Follow Up _ car diac disease 11/21/2017 None Hospital Follow Up Quality acute 11/21/2017 None Hospital Follow Up Severity moderate 11/21/2017 None Hospital Follow Up Pertinent Findings Denies fever 11/21/2017 None Hospital Follow Up Exacerbating Factors exertion 11/21/2017 None gastroesophageal reflux Quality intermittent 10/19/2017 None gastroesophageal reflux Quality heartburn 10/19/2017 None gastroesophageal reflux Quality regurgitation of acid 10/19/2017 None gastroesophageal reflux Onset and Re solution sudden in onset 10/19/2017 None gastroesophageal reflux Onset of Symptom 2 days ago 10/19/2017 None gastroesophageal reflux Timing of Episodes in the morning 10/19/2017 None gastroesophageal reflux Timing of Episodes in the afternoon 10/19/2017 None gastroesophageal reflux Timing of Episodes in the evening 10/19/2017 None gastroesophageal reflux Alleviating Factor s proton pump inhibitor 10/19/2017 None hypertension Quality domenic deena hypertension 09/18/2017 None hypertension Onset and Resolution ongoing 09/18/2017 None hypertension Onset of Symptom during adulthood 09/18/2017 None hypertension Blood Pressure Values patient checking blood pressure at home - did not bring in readings 09/18/2017 None hypertension Alleviating Factors medication 09/18/2017 None hypertension Pertinent Findings Denies dizziness 09/18/2017 None hypertension Pertinent Findings dyspnea 09/18/2017 with exertion hypertension Pertinent Findings edema 09/18/2017 "some" diabetes mellitus Quality non-insulin dependent 09/18/2017 None diabetes mellitus Alleviating Factors medication 09/18/2017 None diabetes mellitus Exacerbating Factors diet 09/18/2017 None diabetes mellitus Pertinent Findings Denies nausea 09/18/2017 None diabetes mellitus Test results Pt not checking blood glucose readings at home 09/18/2017 None Hospital Follow Up _ inf ection 07/21/2017 None Hospital Follow Up _ Oth er: sepsis, UTI 07/21/2017 None Hospital Follow Up Quality acute illness 07/21/2017 None Hospital Follow Up Pertinent Findings fever 07/21/2017 None Hospital Follow Up Pertinent Findings other neurologic symptoms 07/21/2017 None Hospital Follow Up Pertinent Findings pain 07/21/2017 None hypertension Quality domenic deena hypertension 05/04/2017 None hypertension Onset and Resolution ongoing 05/04/2017 None hypertension Onset of Symptom during adulthood 05/04/2017 None hypertension Blood Pressure Values patient checking blood pressure at home - did not bring in readings 05/04/2017 --140's/80's at home per patient report hypertension Alleviating Factors medication 05/04/2017 None hypertension Pertinent Findings Denies dizziness 05/04/2017 None hypertension Pertinent Findings decreased energy 05/04/2017 None hypertension Pertinent Findings dyspnea 05/04/2017 "some" with exertion hypertension Pertinent Findings edema 05/04/2017 None Hospital Follow Up _ Oth er: near-syncopal episode, hypertension, bradycardia 03/30/2017 None Hospital Follow Up Quality acute 03/30/2017 None Hospital Follow Up Onset of Symptom 12 days ago 03/30/2017 None hypertension Onset and Resolution ongoing 03/02/2017 None hypertension Onset of Symptom during adulthood 03/02/2017 None hypertension Blood Pressure Values patient checking blood pressure at home - did not bring in readings 03/02/2017 -Checks occasionally hypertension Alleviating Factors medication 03/02/2017 None hypertension Pertinent Findings Denies dizziness 03/02/2017 None hypertension Pertinent Findings dyspnea 03/02/2017 with exertion hypertension Pertinent Findings edema 03/02/2017 None diabetes mellitus Quality non-insulin dependent 03/02/2017 None diabetes mellitus Alleviating Factors medication 03/02/2017 None diabetes mellitus Exacerbating Factors diet 03/02/2017 None diabetes mellitus Pertinent Findings Denies nausea 03/02/2017 None foot pain Location on th e right 03/02/2017 None foot pain Location in th e heel 03/02/2017 None foot pain Quality acute 03/02/2017 None foot pain Onset of Symptom approx. 1 month ago 03/02/2017 None foot pain Limitation on Activities allows weight bearing activity 03/02/2017 None vertigo Quality intermit tent 03/02/2017 None vertigo Onset and Resolution ongoing 03/02/2017 None vertigo Pertinent Findings dizziness 03/02/2017 None fatigue Onset and Resolution gradual in onset 03/02/2017 None fatigue Onset and Resolution ongoing 03/02/2017 None fatigue Onset of Symptom _ months ago 03/02/2017 None fatigue Pertinent Findings Denies confusion 03/02/2017 None fatigue Pertinent Findings dizziness 03/02/2017 None fatigue Pertinent Findings Denies insomnia 03/02/2017 None fatigue Pertinent Findings Denies syncope 03/02/2017 None fatigue Pertinent Findings Denies tachycardia 03/02/2017 None fatigue Pertinent Findings Denies weakness 03/02/2017 None fatigue Pertinent Findings weight loss 03/02/2017 None vertigo Quality intermit tent 01/31/2017 None vertigo Onset and Resolution ongoing 01/31/2017 None fatigue Onset and Resolution gradual in onset 01/31/2017 None fatigue Onset and Resolution ongoing 01/31/2017 None fatigue Onset of Symptom _ months ago 01/31/2017 None fatigue Pertinent Findings dizziness 01/31/2017 None fatigue Pertinent Findings Denies confusion 01/31/2017 None fatigue Pertinent Findings Denies insomnia 01/31/2017 None fatigue Pertinent Findings Denies syncope 01/31/2017 None fatigue Pertinent Findings Denies tachycardia 01/31/2017 None fatigue Pertinent Findings Denies weakness 01/31/2017 None fatigue Pertinent Findings weight loss 01/31/2017 None vertigo Pertinent Findings dizziness 01/31/2017 None hypertension Onset and Resolution ongoing 10/25/2016 None hypertension Onset of Symptom during adulthood 10/25/2016 None hypertension Blood Pressure Values patient checking blood pressure at home - did not bring in readings 10/25/2016 -Checks occasionally hypertension Alleviating Factors medication 10/25/2016 None hypertension Pertinent Findings Denies dizziness 10/25/2016 None hypertension Pertinent Findings dyspnea 10/25/2016 with exertion hypertension Pertinent Findings edema 10/25/2016 None diabetes mellitus Quality non-insulin dependent 10/25/2016 None diabetes mellitus Test results Pt not checking blood glucose readings at home 10/25/2016 None diabetes mellitus Glucose monitoring does not test 10/25/2016 None diabetes mellitus Alleviating Factors medication 10/25/2016 None diabetes mellitus Exacerbating Factors diet 10/25/2016 None diabetes mellitus Pertinent Findings Denies nausea 10/25/2016 None foot pain Location on th e right 10/25/2016 None foot pain Location in th e heel 10/25/2016 None foot pain Quality acute 10/25/2016 None foot pain Onset of Symptom approx. 1 month ago 10/25/2016 None foot pain Limitation on Activities allows weight bearing activity 10/25/2016 None fatigue Onset and Resolution sudden in onset 07/27/2016 None fatigue Onset of Symptom 2 months ago 07/27/2016 None fatigue Limitation on Activities moderately limits activities 07/27/2016 None fatigue Triggers exertion 07/27/2016 None fatigue Exacerbating Factors medication 07/27/2016 None gait abnormality Quality acute 07/27/2016 None gait abnormality Quality unsteady 07/27/2016 None gait abnormality Onset and Resolution ongoing 07/27/2016 None gait abnormality Pertinent Findings motor weakness 07/27/2016 None fatigue Frequency of Episodes decreasing 07/27/2016 None fatigue Onset and Resolution sudden in onset 05/26/2016 None fatigue Onset of Symptom 2 months ago 05/26/2016 None fatigue Limitation on Activities moderately limits activities 05/26/2016 None fatigue Frequency of Episodes daily 05/26/2016 None fatigue Triggers exertion 05/26/2016 None fatigue Exacerbating Factors medication 05/26/2016 None gait abnormality Quality unsteady 05/12/2016 None gait abnormality Quality acute 05/12/2016 None gait abnormality Onset and Resolution ongoing 05/12/2016 None gait abnormality Pertinent Findings motor weakness 05/12/2016 None gait abnormality Assistive devices cane 05/12/2016 None back pain Location in th e left lower back area 02/23/2016 None back pain Location in th e right lower back area 02/23/2016 None back pain Quality aching 02/23/2016 None back pain Quality interm ittent 02/23/2016 None back pain Onset and Resolution ongoing 02/23/2016 None back pain Onset of Symptom months ago 02/23/2016 None back pain Limitation on Activities does not limit activities 02/23/2016 None back pain Initial treatment physical therapy 02/23/2016 None dyspnea Onset and Resolution ongoing 02/23/2016 None dyspnea Quality shortnes s of breath 02/23/2016 None dyspnea Quality intermit tent 02/23/2016 None dyspnea Alleviating Factors rest 02/23/2016 None dyspnea Exacerbating Factors exertion 02/23/2016 None hypertension Onset and Resolution ongoing 02/23/2016 None hypertension Onset of Symptom during adulthood 02/23/2016 None hypertension Blood Pressure Values not checking blood pressure at home 02/23/2016 - not often hypertension Alleviating Factors medication 02/23/2016 None hypertension Pertinent Findings Denies dizziness 02/23/2016 None hypertension Pertinent Findings dyspnea 02/23/2016 None hypertension Pertinent Findings edema 02/23/2016 None blood pressure followup Quality primary hypertension 12/10/2015 None blood pressure followup Onset and Re solution ongoing 12/10/2015 None blood pressure followup Onset of Symptom 1 months ago 12/10/2015 None blood pressure followup Blood Pressu re Values pt checking blood pressure at home, did not bring in to clinic 12/10/2015 None blood pressure followup Frequency of Episodes daily 12/10/2015 None blood pressure followup Alleviating Factor s medication 12/10/2015 None blood pressure followup Pertinent Findings Denies dizziness 12/10/2015 None blood pressure followup Pertinent Findings dyspnea 12/10/2015 with exertion blood pressure followup Pertinent Findings edema 12/10/2015 None back pain Location in th e left lower back area 11/10/2015 None back pain Location in th e right lower back area 11/10/2015 None back pain Quality interm ittent 11/10/2015 None back pain Onset and Resolution ongoing 11/10/2015 None back pain Onset of Symptom months ago 11/10/2015 None back pain Limitation on Activities does not limit activities 11/10/2015 None back pain Initial treatment physical therapy 11/10/2015 None back pain Quality aching 11/10/2015 None back pain Location in th e right lower back area 08/07/2015 None back pain Onset and Resolution ongoing 08/07/2015 None back pain Onset of Symptom _ months ago 08/07/2015 None back pain Limitation on Activities does not limit activities 08/07/2015 None back pain Location in th e left lower back area 08/07/2015 None back pain Quality interm ittent 08/07/2015 None back pain Quality improv ing 08/07/2015 None back pain Initial treatment physical therapy 08/07/2015 None back pain Quality consta nt 07/07/2015 None back pain Quality worsen ing 07/07/2015 None back pain Location in th e right lower back area 07/07/2015 None back pain Onset and Resolution ongoing 07/07/2015 None back pain Onset of Symptom _ months ago 07/07/2015 None back pain Limitation on Activities does not limit activities 07/07/2015 None Hospital Follow Up _ Oth er: for hypertensive crisis and atrial fibrillation 07/07/2015 2 separate hospital visits he states that he has been checking his blood pressure at home and it has been running "okay" running in the 140-150/60-70 range. Hospital Follow Up Quality acute 07/07/2015 None Hospital Follow Up Alleviating Factors medication 07/07/2015 None arrhythmia Quality acute 07/07/2015 None arrhythmia Quality irreg ular beats 07/07/2015 atrial fibrillation arrhythmia Onset and Resolution resolved 07/07/2015 None arrhythmia Alleviating Factors medication 07/07/2015 amiodarone ingrown toenail Quality sharp pain 04/02/2015 None ingrown toenail Onset of Symptom 3 months ago 04/02/2015 Left big toe ingrown toenail Pertinent Findings redness 04/02/2015 None ingrown toenail Pertinent Findings Denies swelling 04/02/2015 None ingrown toenail Pertinent Findings Denies fever 04/02/2015 None gastroesophageal reflux Quality heartburn 04/02/2015 None gastroesophageal reflux Onset of Symptom 3 days ago 04/02/2015 None gastroesophageal reflux Pertinent Findings Denies cough 04/02/2015 None gastroesophageal reflux Pertinent Findings dysphagia 04/02/2015 No trouble swalling but feels like food gets stuck in his throat. hypertension Quality chr onic 12/23/2014 None hypertension Onset and Resolution ongoing 12/23/2014 None hypertension Blood Pressure Values patient checking blood pressure at home - did not bring in readings 12/23/2014 Says he takes his blood pressure occasio mirtha. Said that they ran high while in hospital.he states that at home his blood pressure has been running in the 140/80's hypertension Pertinent Findings Denies dizziness 12/23/2014 None hypertension Pertinent Findings dyspnea 12/23/2014 he says he is always shor t of breath. hypertension Pertinent Findings edema 12/23/2014 says he is out of lasix, but didnt think that it helped diabetes mellitus Quality non-insulin dependent 12/23/2014 None diabetes mellitus Quality chronic 12/23/2014 None diabetes mellitus Pertinent Findings Denies dizziness 12/23/2014 None fatigue Onset and Resolution ongoing 12/23/2014 None fatigue Limitation on Activities moderately limits activities 12/23/2014 None hypertension Quality chr onic 10/22/2014 None hypertension Onset and Resolution ongoing 10/22/2014 None hypertension Blood Pressure Values patient checking blood pressure at home - did not bring in readings 10/22/2014 Says he takes his blood pressure occasio mirtha. Said that they ran high while in hospital.he states that at home his blood pressure has been running in the 140/80's hypertension Pertinent Findings Denies dizziness 10/22/2014 None hypertension Pertinent Findings dyspnea 10/22/2014 he says he is always shor t of breath. hypertension Pertinent Findings edema 10/22/2014 says he is out of lasix, but didnt think that it helped diabetes mellitus Quality non-insulin dependent 10/22/2014 None diabetes mellitus Quality chronic 10/22/2014 None diabetes mellitus Pertinent Findings Denies dizziness 10/22/2014 None fever Onset of Symptom 1 days ago 09/26/2014 None fever Temperature 101 de grees 09/26/2014 None fever Pertinent Findings cough 09/26/2014 None cough Quality productive 09/26/2014 greenish yellow cough Onset of Symptom 2 days ago 09/26/2014 None cough Pertinent Findings dyspnea 09/26/2014 ongoing cough Pertinent Findings Denies chest discomfort 09/26/2014 None cough Pertinent Findings fever 09/26/2014 None cough Pertinent Findings Denies nasal congestion 09/26/2014 None cough Pertinent Findings sputum production 09/26/2014 greenish yellow fever Quality acute 09/26/2014 None fever Onset and Resolution ongoing 09/26/2014 None fever Triggers no known associated factors 09/26/2014 None fever Pertinent Findings upper respiratory tract symptoms 09/26/2014 None cough Onset and Resolution ongoing 09/26/2014 None cough Location in the th roat 09/26/2014 None cough Location in the jose ng 09/26/2014 None cough Triggers no known associated factors 09/26/2014 None hypertension Quality chr onic 07/01/2014 None hypertension Onset and Resolution ongoing 07/01/2014 None hypertension Blood Pressure Values patient checking blood pressure at home - did not bring in readings 07/01/2014 Says he takes his blood pressure occasio mirtha. Said that they ran high while in hospital.he states that at home his blood pressure has been running in the 140/80's hypertension Pertinent Findings Denies dizziness 07/01/2014 None hypertension Pertinent Findings dyspnea 07/01/2014 he says he is always shor t of breath. hypertension Pertinent Findings edema 07/01/2014 says he is out of lasix, but didnt think that it helped diabetes mellitus Quality non-insulin dependent 07/01/2014 None diabetes mellitus Quality chronic 07/01/2014 None diabetes mellitus Pertinent Findings Denies dizziness 07/01/2014 None hypertension Quality chr onic 06/09/2014 None hypertension Onset and Resolution ongoing 06/09/2014 None hypertension Blood Pressure Values patient checking blood pressure at home - did not bring in readings 06/09/2014 Says he takes his blood pressure occasio mirtha. Said that they ran high while in hospital.he states that at home his blood pressure has been running in the 140/80's hypertension Pertinent Findings Denies dizziness 06/09/2014 None hypertension Pertinent Findings dyspnea 06/09/2014 he says he is always shor t of breath. hypertension Pertinent Findings edema 06/09/2014 says he is out of lasix, but didnt think that it helped diabetes mellitus Quality non-insulin dependent 06/09/2014 None diabetes mellitus Quality chronic 06/09/2014 None diabetes mellitus Pertinent Findings Denies dizziness 06/09/2014 None diabetes mellitus Test results Pt checking blood glucose readings, did not bring results to clinic 06/09/2014 only tests PRN dysuria Quality burning 05/07/2014 Not having any burning on urination toda y, but had some yesterday. urinary urgency Quality acute 05/07/2014 None urinary urgency Onset and Resolution ongoing 05/07/2014 None hypertension Quality chr onic 05/07/2014 None hypertension Onset and Resolution ongoing 05/07/2014 None hypertension Blood Pressure Values patient checking blood pressure at home - did not bring in readings 05/07/2014 Says he takes his blood pressure occasio mirtha. Said that they ran high while in hospital. diabetes mellitus Quality non-insulin dependent 05/07/2014 None diabetes mellitus Quality chronic 05/07/2014 None urinary frequency Quality improving 05/07/2014 None hypertension Pertinent Findings Denies dizziness 05/07/2014 None hypertension Pertinent Findings dyspnea 05/07/2014 he says he is always shor t of breath. hypertension Pertinent Findings edema 05/07/2014 says he is out of lasix, but didnt think that it helped diabetes mellitus Test results Pt checking blood glucose readings, did not bring results to clinic 05/07/2014 checks in the morning and is always unde r 100 diabetes mellitus Glucose monitoring occasional glucose testing 05/07/2014 None diabetes mellitus Pertinent Findings Denies dizziness 05/07/2014 None dysuria Quality burning 04/21/2014 None dysuria Quality worsening 04/21/2014 None dysuria Onset and Resolution ongoing 04/21/2014 None dysuria Onset of Symptom 2 days ago 04/21/2014 None urinary frequency Quality acute 04/21/2014 None urinary frequency Onset and Resolution ongoing 04/21/2014 None urinary frequency Onset of Symptom 2 days ago 04/21/2014 None urinary frequency Limitation on Activities moderately limits activities 04/21/2014 None urinary frequency Triggers no known associated factors 04/21/2014 None urinary urgency Quality acute 04/21/2014 None urinary urgency Onset and Resolution ongoing 04/21/2014 None urinary urgency Onset of Symptom 3 days ago 04/21/2014 None nausea Onset and Resolution ongoing 04/21/2014 None nausea Onset of Symptom 2 days ago 04/21/2014 None nausea Severity mild 04/21/2014 None nausea Triggers no known associated factors 04/21/2014 None nausea Quality acute 04/21/2014 None nausea Pertinent Findings Denies bloating 04/21/2014 None nausea Pertinent Findings chills 04/21/2014 None nausea Pertinent Findings Denies cough 04/21/2014 None nausea Pertinent Findings dyspnea 04/21/2014 - chronic - nausea Pertinent Findings fever 04/21/2014 None vomiting Onset of Symptom 1-2 days ago 04/21/2014 - no more vomitting c e Monday - skin lesion Onset and Resolution ongoing 02/14/2014 None skin lesion Onset of Symptom 1 weeks ago 02/14/2014 None skin lesion Significant Medical Conditions trauma 02/14/2014 tick bite skin lesion Pertinent Findings Denies ecchymotic 02/14/2014 None skin lesion Pertinent Findings Denies fever 02/14/2014 None skin lesion Location ant erior left lower leg 02/14/2014 None hypertension Quality chr onic 01/16/2014 None hypertension Onset and Resolution ongoing 01/16/2014 None hypertension Blood Pressure Values patient checking blood pressure at home - did not bring in readings 01/16/2014 None diabetes mellitus Quality non-insulin dependent 01/16/2014 None diabetes mellitus Quality chronic 01/16/2014 None diabetes mellitus Test results Pt checking blood glucose readings, did not bring results to clinic 01/16/2014 None shoulder pain Location o n both shoulders 01/16/2014 states can't raise left a rm above shoulder height shoulder pain Quality wo rsening 01/16/2014 None chest pain/pressure Location in the substernal area 11/14/2013 None chest pain/pressure Exacerbating Factors exertion 11/14/2013 None diabetes mellitus Quality non-insulin dependent 11/14/2013 None diabetes mellitus Quality chronic 11/14/2013 None diabetes mellitus Test results Pt checking blood glucose readings, did not bring results to clinic 11/14/2013 None fatigue Quality chronic 11/14/2013 None fatigue Quality worsening 11/14/2013 None hypertension Quality chr onic 11/14/2013 None hypertension Onset and Resolution ongoing 11/14/2013 None hypertension Blood Pressure Values patient checking blood pressure at home - did not bring in readings 11/14/2013 None hypertension Quality chr onic 10/24/2013 None hypertension Pertinent Findings Denies dizziness 10/24/2013 None hypertension Pertinent Findings dyspnea 10/24/2013 None hypertension Pertinent Findings edema 10/24/2013 None hypertension Pertinent Findings Denies palpitations 10/24/2013 None diabetes mellitus Test results Pt checking blood glucose readings, did not bring results to clinic 10/24/2013 None diabetes mellitus Pertinent Findings nausea 10/24/2013 None hypertension Pertinent Findings decreased energy 10/24/2013 None hypertension Blood Pressure Values patient checking blood pressure at home - did not bring in readings 10/24/2013 at home bp 140/70's hypertension Onset and Resolution ongoing 10/24/2013 None hypertension Onset of Symptom during adulthood 10/24/2013 None chest pain/pressure Quality chronic 06/24/2013 None chest pain/pressure Location in the epigastric area 06/24/2013 no relief with carafate chest pain/pressure Onset of Symptom 1 months ago 06/24/2013 None chest pain/pressure Alleviating Factors rest 06/24/2013 None chest pain/pressure Onset and Resolution ongoing 06/24/2013 states has it on a daily basis and lasts different lengths of time. can't walk up stairs without pain chest pain/pressure Pertinent Findings dyspnea 06/24/2013 None chest pain/pressure Pertinent Findings dyspnea on exertion 06/24/2013 None chest pain/pressure Pertinent Findings Denies lightheadedness 06/24/2013 None hypertension Quality chr onic 06/05/2013 None hypertension Onset and Resolution ongoing 06/05/2013 None hypertension Blood Pressure Values patient checking blood pressure at home - did not bring in readings 06/05/2013 None hypertension Pertinent Findings Denies dizziness 06/05/2013 None hypertension Pertinent Findings dyspnea 06/05/2013 None hypertension Pertinent Findings edema 06/05/2013 None diabetes mellitus Quality non-insulin dependent 06/05/2013 None diabetes mellitus Glucose monitoring occasional glucose testing 06/05/2013 None diabetes mellitus Test results Pt checking blood glucose readings, did not bring results to clinic 06/05/2013 None diabetes mellitus Blood glucose levels between 60 and 120 06/05/2013 None diabetes mellitus Pertinent Findings Denies behavioral changes 06/05/2013 None diabetes mellitus Pertinent Findings Denies increased hunger 06/05/2013 None diabetes mellitus Pertinent Findings lethargy 06/05/2013 None diabetes mellitus Pertinent Findings Denies mental status change 06/05/2013 None diabetes mellitus Pertinent Findings Denies nausea 06/05/2013 None diabetes mellitus Quality non-insulin dependent 04/01/2013 None diabetes mellitus Nutrition regular diet 04/01/2013 None diabetes mellitus Nutrition ADA diet 04/01/2013 None diabetes mellitus Pertinent Findings Denies dehydration 04/01/2013 None diabetes mellitus Pertinent Findings Denies dizziness 04/01/2013 None diabetes mellitus Pertinent Findings Denies increased hunger 04/01/2013 None diabetes mellitus Pertinent Findings Denies lethargy 04/01/2013 None diabetes mellitus Pertinent Findings Denies mental status change 04/01/2013 None diabetes mellitus Pertinent Findings Denies nausea 04/01/2013 None diabetes mellitus Pertinent Findings Denies tingling 04/01/2013 None hypertension Quality chr onic 04/01/2013 None hypertension Onset and Resolution ongoing 04/01/2013 None hypertension Blood Pressure Values patient checking blood pressure at home - did not bring in readings 04/01/2013 None hypertension Alleviating Factors medication 04/01/2013 None hypertension Pertinent Findings Denies decreased energy 04/01/2013 None hypertension Pertinent Findings Denies dizziness 04/01/2013 None hypertension Pertinent Findings Denies nausea 04/01/2013 None hypertension Pertinent Findings Denies orthostatic hypotension 04/01/2013 None hypertension Pertinent Findings Denies palpitations 04/01/2013 None hypertension Pertinent Findings Denies tachycardia 04/01/2013 None diabetes mellitus Test results Pt checking blood glucose readings, did not bring results to clinic 04/01/2013 None hypertension Frequency of Episodes increasing 04/01/2013 concerned about bp rising. states since HCTZ was stopped due to kidney function his blood pressure has been gradually increasing Hospital Follow Up Quality acute illness 01/29/2013 None Hospital Follow Up Onset and Resolution improved but gets fatigued easily 01/29/2013 None Hospital Follow Up Severity moderate 01/29/2013 None Hospital Follow Up Pertinent Findings other arthralgias 01/29/2013 None Hospital Follow Up Pertinent Findings Denies other neurologic symptoms 01/29/2013 None Hospital Follow Up Pertinent Findings Denies pain 01/29/2013 None Hospital Follow Up Alleviating Factors medication 01/29/2013 IV and oral doxycycline edema Quality painless 12/25/2012 None edema Quality pitting 12/25/2012 None edema Onset and Resolution ongoing 12/25/2012 None edema Quality worsening 12/25/2012 None edema Location on both a nkles 12/25/2012 None edema Pertinent Findings Denies limb pain / tenderness 12/25/2012 None edema Pertinent Findings Denies limb redness 12/25/2012 None edema Pertinent Findings Denies dyspnea 12/25/2012 None edema Triggers diet [facility] 12/25/2012 None edema Exacerbating Factors salty foods 12/25/2012 None edema Exacerbating Factors standing 12/25/2012 None diabetes mellitus Quality non-insulin dependent 10/01/2012 None diabetes mellitus Test results Pt checking blood glucose readings, did not bring results to clinic 10/01/2012 None diabetes mellitus Glucose monitoring occasional glucose testing 10/01/2012 None diabetes mellitus Nutrition regular diet 10/01/2012 None diabetes mellitus Nutrition ADA diet 10/01/2012 None diabetes mellitus Pertinent Findings Denies dizziness 10/01/2012 None diabetes mellitus Pertinent Findings Denies dehydration 10/01/2012 None diabetes mellitus Pertinent Findings Denies increased hunger 10/01/2012 None diabetes mellitus Pertinent Findings Denies lethargy 10/01/2012 None diabetes mellitus Pertinent Findings Denies mental status change 10/01/2012 None diabetes mellitus Pertinent Findings Denies nausea 10/01/2012 None diabetes mellitus Pertinent Findings Denies tingling 10/01/2012 None hypertension Quality chr onic 10/01/2012 None hypertension Onset and Resolution ongoing 10/01/2012 None hypertension Blood Pressure Values patient checking blood pressure at home - did not bring in readings 10/01/2012 None hypertension Alleviating Factors medication 10/01/2012 None hypertension Pertinent Findings Denies decreased energy 10/01/2012 None hypertension Pertinent Findings Denies dizziness 10/01/2012 None hypertension Pertinent Findings Denies orthostatic hypotension 10/01/2012 None hypertension Pertinent Findings Denies palpitations 10/01/2012 None hypertension Pertinent Findings Denies tachycardia 10/01/2012 None hypertension Pertinent Findings Denies nausea 10/01/2012 None cough Location in the th roat 06/29/2012 None cough Quality dry 06/29/2012 None cough Onset and Resolution gradual in onset 06/29/2012 None cough Onset of Symptom 1 months ago 06/29/2012 None cough Pertinent Findings chest discomfort 06/29/2012 None cough Onset and Resolution ongoing 06/29/2012 None cough Limitation on Activities does not limit activities 06/29/2012 None cough Frequency of Episodes unchanged 06/29/2012 None cough Triggers no known associated factors 06/29/2012 None cough Pertinent Findings dyspnea 06/29/2012 None cough Pertinent Findings hoarseness 06/29/2012 None cough Pertinent Findings Denies lethargy 06/29/2012 None cough Pertinent Findings Denies nausea 06/29/2012 None cough Pertinent Findings Denies purulent sputum 06/29/2012 None cough Pertinent Findings sputum production 06/29/2012 None cough Location in the jose ng 05/28/2012 None cough Quality acute 05/28/2012 None cough Quality productive 05/28/2012 None cough Onset and Resolution sudden in onset 05/28/2012 None cough Onset of Symptom 1 weeks ago 05/28/2012 None diabetes mellitus Quality non-insulin dependent 04/02/2012 None diabetes mellitus Severity mild 04/02/2012 None diabetes mellitus Quality chronic 04/02/2012 None diabetes mellitus Onset of Symptom onset as an adult 04/02/2012 None diabetes mellitus Alleviating Factors medication 04/02/2012 None diabetes mellitus Alleviating Factors diet 04/02/2012 None diabetes mellitus Alleviating Factors exercise 04/02/2012 None diabetes mellitus Nutrition ADA diet 04/02/2012 None cholesterol followup Quality chronic 04/02/2012 None cholesterol followup Onset and Resolution ongoing 04/02/2012 None cholesterol followup Onset of Symptom during adulthood 04/02/2012 None cholesterol followup Frequency of Episodes unchanged 04/02/2012 None cholesterol followup Triggers no known associated factors 04/02/2012 None cholesterol followup Alleviating Factors medication 04/02/2012 None blood pressure followup Quality chronic 04/02/2012 None blood pressure followup Onset and Re solution ongoing 04/02/2012 None blood pressure followup Onset of Symptom during adulthood 04/02/2012 None blood pressure followup Blood Pressu re Values not checking blood pressure at home 04/02/2012 None blood pressure followup Frequency of Episodes unchanged 04/02/2012 Non e blood pressure followup Alleviating Factor s exercise 04/02/2012 None blood pressure followup Alleviating Factor s medication 04/02/2012 None sore throat Location dif fusely 01/24/2012 None sore throat Quality wors ening 01/24/2012 None sore throat Onset of Symptom 3 days ago 01/24/2012 None cough Location in the jose ng 01/24/2012 None cough Onset and Resolution gradual in onset 01/24/2012 None cough Onset of Symptom 3 weeks ago 01/24/2012 None sore throat Onset and Resolution ongoing 01/24/2012 None sore throat Limitation on Activities does not limit oral intake 01/24/2012 None sore throat Frequency of Episodes increasing 01/24/2012 None sore throat Triggers no known associated factors 01/24/2012 None cough Limitation on Activities does not limit activities 01/24/2012 None cough Quality acute 01/24/2012 None cough Frequency of Episodes unchanged 01/24/2012 None cough Triggers no known associated factors 01/24/2012 None blood pressure followup Alleviating Factor s medication 10/03/2011 None blood pressure followup Alleviating Factor s exercise 10/03/2011 None blood pressure followup Blood Pressu re Values not checking blood pressure at home 10/03/2011 None blood pressure followup Frequency of Episodes unchanged 10/03/2011 Non e blood pressure followup Onset and Re solution ongoing 10/03/2011 None blood pressure followup Onset of Symptom during adulthood 10/03/2011 None blood pressure followup Quality chronic 10/03/2011 None cholesterol followup Alleviating Factors medication 10/03/2011 None cholesterol followup Frequency of Episodes unchanged 10/03/2011 None cholesterol followup Onset and Resolution ongoing 10/03/2011 None cholesterol followup Onset of Symptom during adulthood 10/03/2011 None cholesterol followup Quality chronic 10/03/2011 None cholesterol followup Triggers no known associated factors 10/03/2011 None diabetes mellitus Alleviating Factors medication 10/03/2011 None diabetes mellitus Alleviating Factors exercise 10/03/2011 None diabetes mellitus Alleviating Factors diet 10/03/2011 None diabetes mellitus Glucose monitoring fasting 10/03/2011 None diabetes mellitus Nutrition ADA diet 10/03/2011 None diabetes mellitus Onset of Symptom onset as an adult 10/03/2011 None diabetes mellitus Quality chronic 10/03/2011 None diabetes mellitus Test results HgbA1c level _ 10/03/2011 None diabetes mellitus Severity mild 10/03/2011 None diabetes mellitus Exercise moderate exercise 10/03/2011 walking 30 - 40 minutes d aily, and golfing. diabetes mellitus Quality non-insulin dependent 05/30/2011 None diabetes mellitus Onset of Symptom onset as an adult 05/30/2011 None diabetes mellitus Severity mild 05/30/2011 None diabetes mellitus Blood glucose levels between 60 and 120 05/30/2011 None diabetes mellitus Glucose monitoring daily 05/30/2011 None diabetes mellitus Exercise minimal exercise 05/30/2011 None Symptom Name Status Resu lt Effective Date Notes hypertension Onset and Resolution ongoing 10/25/2016 None hypertension Onset of Symptom during adulthood 10/25/2016 None hypertension Blood Pressure Values patient checking blood pressure at home - did not bring in readings 10/25/2016 -Checks occasionally hypertension Alleviating Factors medication 10/25/2016 None hypertension Pertinent Findings Denies dizziness 10/25/2016 None hypertension Pertinent Findings dyspnea 10/25/2016 with exertion hypertension Pertinent Findings edema 10/25/2016 None diabetes mellitus Quality non-insulin dependent 10/25/2016 None diabetes mellitus Test results Pt not checking blood glucose readings at home 10/25/2016 None diabetes mellitus Glucose monitoring does not test 10/25/2016 None diabetes mellitus Alleviating Factors medication 10/25/2016 None diabetes mellitus Exacerbating Factors diet 10/25/2016 None diabetes mellitus Pertinent Findings Denies nausea 10/25/2016 None foot pain Location on th e right 10/25/2016 None foot pain Location in th e heel 10/25/2016 None foot pain Quality acute 10/25/2016 None foot pain Onset of Symptom approx. 1 month ago 10/25/2016 None foot pain Limitation on Activities allows weight bearing activity 10/25/2016 None fatigue Onset and Resolution sudden in onset 07/27/2016 None fatigue Onset of Symptom 2 months ago 07/27/2016 None fatigue Limitation on Activities moderately limits activities 07/27/2016 None fatigue Triggers exertion 07/27/2016 None fatigue Exacerbating Factors medication 07/27/2016 None gait abnormality Quality acute 07/27/2016 None gait abnormality Quality unsteady 07/27/2016 None gait abnormality Onset and Resolution ongoing 07/27/2016 None gait abnormality Pertinent Findings motor weakness 07/27/2016 None fatigue Frequency of Episodes decreasing 07/27/2016 None fatigue Onset and Resolution sudden in onset 05/26/2016 None fatigue Onset of Symptom 2 months ago 05/26/2016 None fatigue Limitation on Activities moderately limits activities 05/26/2016 None fatigue Frequency of Episodes daily 05/26/2016 None fatigue Triggers exertion 05/26/2016 None fatigue Exacerbating Factors medication 05/26/2016 None gait abnormality Quality unsteady 05/12/2016 None gait abnormality Quality acute 05/12/2016 None gait abnormality Onset and Resolution ongoing 05/12/2016 None gait abnormality Pertinent Findings motor weakness 05/12/2016 None gait abnormality Assistive devices cane 05/12/2016 None back pain Location in th e left lower back area 02/23/2016 None back pain Location in th e right lower back area 02/23/2016 None back pain Quality aching 02/23/2016 None back pain Quality interm ittent 02/23/2016 None back pain Onset and Resolution ongoing 02/23/2016 None back pain Onset of Symptom months ago 02/23/2016 None back pain Limitation on Activities does not limit activities 02/23/2016 None back pain Initial treatment physical therapy 02/23/2016 None dyspnea Onset and Resolution ongoing 02/23/2016 None dyspnea Quality shortnes s of breath 02/23/2016 None dyspnea Quality intermit tent 02/23/2016 None dyspnea Alleviating Factors rest 02/23/2016 None dyspnea Exacerbating Factors exertion 02/23/2016 None hypertension Onset and Resolution ongoing 02/23/2016 None hypertension Onset of Symptom during adulthood 02/23/2016 None hypertension Blood Pressure Values not checking blood pressure at home 02/23/2016 - not often hypertension Alleviating Factors medication 02/23/2016 None hypertension Pertinent Findings Denies dizziness 02/23/2016 None hypertension Pertinent Findings dyspnea 02/23/2016 None hypertension Pertinent Findings edema 02/23/2016 None blood pressure followup Quality primary hypertension 12/10/2015 None blood pressure followup Onset and Re solution ongoing 12/10/2015 None blood pressure followup Onset of Symptom 1 months ago 12/10/2015 None blood pressure followup Blood Pressu re Values pt checking blood pressure at home, did not bring in to clinic 12/10/2015 None blood pressure followup Frequency of Episodes daily 12/10/2015 None blood pressure followup Alleviating Factor s medication 12/10/2015 None blood pressure followup Pertinent Findings Denies dizziness 12/10/2015 None blood pressure followup Pertinent Findings dyspnea 12/10/2015 with exertion blood pressure followup Pertinent Findings edema 12/10/2015 None back pain Location in e left lower back area 11/10/2015 None back pain Location in th e right lower back area 11/10/2015 None back pain Quality interm ittent 11/10/2015 None back pain Onset and Resolution ongoing 11/10/2015 None back pain Onset of Symptom months ago 11/10/2015 None back pain Limitation on Activities does not limit activities 11/10/2015 None back pain Initial treatment physical therapy 11/10/2015 None back pain Quality aching 11/10/2015 None back pain Location in th e right lower back area 08/07/2015 None back pain Onset and Resolution ongoing 08/07/2015 None back pain Onset of Symptom _ months ago 08/07/2015 None back pain Limitation on Activities does not limit activities 08/07/2015 None back pain Location in th e left lower back area 08/07/2015 None back pain Quality interm ittent 08/07/2015 None back pain Quality improv ing 08/07/2015 None back pain Initial treatment physical therapy 08/07/2015 None back pain Quality consta nt 07/07/2015 None back pain Quality worsen ing 07/07/2015 None back pain Location in e right lower back area 07/07/2015 None back pain Onset and Resolution ongoing 07/07/2015 None back pain Onset of Symptom _ months ago 07/07/2015 None back pain Limitation on Activities does not limit activities 07/07/2015 None Hospital Follow Up _ Oth er: for hypertensive crisis and atrial fibrillation 07/07/2015 2 separate hospital visits he states that he has been checking his blood pressure at home and it has been running "okay" running in the 140-150/60-70 range. Hospital Follow Up Quality acute 07/07/2015 None Hospital Follow Up Alleviating Factors medication 07/07/2015 None arrhythmia Quality acute 07/07/2015 None arrhythmia Quality irreg ular beats 07/07/2015 atrial fibrillation arrhythmia Onset and Resolution resolved 07/07/2015 None arrhythmia Alleviating Factors medication 07/07/2015 amiodarone ingrown toenail Quality sharp pain 04/02/2015 None ingrown toenail Onset of Symptom 3 months ago 04/02/2015 Left big toe ingrown toenail Pertinent Findings redness 04/02/2015 None ingrown toenail Pertinent Findings Denies swelling 04/02/2015 None ingrown toenail Pertinent Findings Denies fever 04/02/2015 None gastroesophageal reflux Quality heartburn 04/02/2015 None gastroesophageal reflux Onset of Symptom 3 days ago 04/02/2015 None gastroesophageal reflux Pertinent Findings Denies cough 04/02/2015 None gastroesophageal reflux Pertinent Findings dysphagia 04/02/2015 No trouble swalling but feels like food gets stuck in his throat. hypertension Quality chr onic 12/23/2014 None hypertension Onset and Resolution ongoing 12/23/2014 None hypertension Blood Pressure Values patient checking blood pressure at home - did not bring in readings 12/23/2014 Says he takes his blood pressure occasio mirtha. Said that they ran high while in hospital.he states that at home his blood pressure has been running in the 140/80's hypertension Pertinent Findings Denies dizziness 12/23/2014 None hypertension Pertinent Findings dyspnea 12/23/2014 he says he is always shor t of breath. hypertension Pertinent Findings edema 12/23/2014 says he is out of lasix, but didnt think that it helped diabetes mellitus Quality non-insulin dependent 12/23/2014 None diabetes mellitus Quality chronic 12/23/2014 None diabetes mellitus Pertinent Findings Denies dizziness 12/23/2014 None fatigue Onset and Resolution ongoing 12/23/2014 None fatigue Limitation on Activities moderately limits activities 12/23/2014 None hypertension Quality chr onic 10/22/2014 None hypertension Onset and Resolution ongoing 10/22/2014 None hypertension Blood Pressure Values patient checking blood pressure at home - did not bring in readings 10/22/2014 Says he takes his blood pressure occasio mirtha. Said that they ran high while in hospital.he states that at home his blood pressure has been running in the 140/80's hypertension Pertinent Findings Denies dizziness 10/22/2014 None hypertension Pertinent Findings dyspnea 10/22/2014 he says he is always shor t of breath. hypertension Pertinent Findings edema 10/22/2014 says he is out of lasix, but didnt think that it helped diabetes mellitus Quality non-insulin dependent 10/22/2014 None diabetes mellitus Quality chronic 10/22/2014 None diabetes mellitus Pertinent Findings Denies dizziness 10/22/2014 None fever Onset of Symptom 1 days ago 09/26/2014 None fever Temperature 101 de grees 09/26/2014 None fever Pertinent Findings cough 09/26/2014 None cough Quality productive 09/26/2014 greenish yellow cough Onset of Symptom 2 days ago 09/26/2014 None cough Pertinent Findings dyspnea 09/26/2014 ongoing cough Pertinent Findings Denies chest discomfort 09/26/2014 None cough Pertinent Findings fever 09/26/2014 None cough Pertinent Findings Denies nasal congestion 09/26/2014 None cough Pertinent Findings sputum production 09/26/2014 greenish yellow fever Quality acute 09/26/2014 None fever Onset and Resolution ongoing 09/26/2014 None fever Triggers no known associated factors 09/26/2014 None fever Pertinent Findings upper respiratory tract symptoms 09/26/2014 None cough Onset and Resolution ongoing 09/26/2014 None cough Location in the th roat 09/26/2014 None cough Location in the jose ng 09/26/2014 None cough Triggers no known associated factors 09/26/2014 None hypertension Quality chr onic 07/01/2014 None hypertension Onset and Resolution ongoing 07/01/2014 None hypertension Blood Pressure Values patient checking blood pressure at home - did not bring in readings 07/01/2014 Says he takes his blood pressure occasio mirtha. Said that they ran high while in hospital.he states that at home his blood pressure has been running in the 140/80's hypertension Pertinent Findings Denies dizziness 07/01/2014 None hypertension Pertinent Findings dyspnea 07/01/2014 he says he is always shor t of breath. hypertension Pertinent Findings edema 07/01/2014 says he is out of lasix, but didnt think that it helped diabetes mellitus Quality non-insulin dependent 07/01/2014 None diabetes mellitus Quality chronic 07/01/2014 None diabetes mellitus Pertinent Findings Denies dizziness 07/01/2014 None hypertension Quality [facility] onic 06/09/2014 None hypertension Onset and Resolution ongoing 06/09/2014 None hypertension Blood Pressure Values patient checking blood pressure at home - did not bring in readings 06/09/2014 Says he takes his blood pressure occasio mirtha. Said that they ran high while in hospital.he states that at home his blood pressure has been running in the 140/80's hypertension Pertinent Findings Denies dizziness 06/09/2014 None hypertension Pertinent Findings dyspnea 06/09/2014 he says he is always shor t of breath. hypertension Pertinent Findings edema 06/09/2014 says he is out of lasix, but didnt think that it helped diabetes mellitus Quality non-insulin dependent 06/09/2014 None diabetes mellitus Quality chronic 06/09/2014 None diabetes mellitus Pertinent Findings Denies dizziness 06/09/2014 None diabetes mellitus Test results Pt checking blood glucose readings, did not bring results to clinic 06/09/2014 only tests PRN dysuria Quality burning 05/07/2014 Not having any burning on urination toda y, but had some yesterday. urinary urgency Quality acute 05/07/2014 None urinary urgency Onset and Resolution ongoing 05/07/2014 None hypertension Quality chr onic 05/07/2014 None hypertension Onset and Resolution ongoing 05/07/2014 None hypertension Blood Pressure Values patient checking blood pressure at home - did not bring in readings 05/07/2014 Says he takes his blood pressure occasio mirtha. Said that they ran high while in hospital. diabetes mellitus Quality non-insulin dependent 05/07/2014 None diabetes mellitus Quality chronic 05/07/2014 None urinary frequency Quality improving 05/07/2014 None hypertension Pertinent Findings Denies dizziness 05/07/2014 None hypertension Pertinent Findings dyspnea 05/07/2014 he says he is always shor t of breath. hypertension Pertinent Findings edema 05/07/2014 says he is out of lasix, but didnt think that it helped diabetes mellitus Test results Pt checking blood glucose readings, did not bring results to clinic 05/07/2014 checks in the morning and is always unde r 100 diabetes mellitus Glucose monitoring occasional glucose testing 05/07/2014 None diabetes mellitus Pertinent Findings Denies dizziness 05/07/2014 None dysuria Quality burning 04/21/2014 None dysuria Quality worsening 04/21/2014 None dysuria Onset and Resolution ongoing 04/21/2014 None dysuria Onset of Symptom 2 days ago 04/21/2014 None urinary frequency Quality acute 04/21/2014 None urinary frequency Onset and Resolution ongoing 04/21/2014 None urinary frequency Onset of Symptom 2 days ago 04/21/2014 None urinary frequency Limitation on Activities moderately limits activities 04/21/2014 None urinary frequency Triggers no known associated factors 04/21/2014 None urinary urgency Quality acute 04/21/2014 None urinary urgency Onset and Resolution ongoing 04/21/2014 None urinary urgency Onset of Symptom 3 days ago 04/21/2014 None nausea Onset and Resolution ongoing 04/21/2014 None nausea Onset of Symptom 2 days ago 04/21/2014 None nausea Severity mild 04/21/2014 None nausea Triggers no known associated factors 04/21/2014 None nausea Quality acute 04/21/2014 None nausea Pertinent Findings Denies bloating 04/21/2014 None nausea Pertinent Findings chills 04/21/2014 None nausea Pertinent Findings Denies cough 04/21/2014 None nausea Pertinent Findings dyspnea 04/21/2014 - chronic - nausea Pertinent Findings fever 04/21/2014 None vomiting Onset of Symptom 1-2 days ago 04/21/2014 - no more vomitting c e Monday - skin lesion Onset and Resolution ongoing 02/14/2014 None skin lesion Onset of Symptom 1 weeks ago 02/14/2014 None skin lesion Significant Medical Conditions trauma 02/14/2014 tick bite skin lesion Pertinent Findings Denies ecchymotic 02/14/2014 None skin lesion Pertinent Findings Denies fever 02/14/2014 None skin lesion Location ant erior left lower leg 02/14/2014 None hypertension Quality chr onic 01/16/2014 None hypertension Onset and Resolution ongoing 01/16/2014 None hypertension Blood Pressure Values patient checking blood pressure at home - did not bring in readings 01/16/2014 None diabetes mellitus Quality non-insulin dependent 01/16/2014 None diabetes mellitus Quality chronic 01/16/2014 None diabetes mellitus Test results Pt checking blood glucose readings, did not bring results to clinic 01/16/2014 None shoulder pain Location o n both shoulders 01/16/2014 states can't raise left a rm above shoulder height shoulder pain Quality wo rsening 01/16/2014 None chest pain/pressure Location in the substernal area 11/14/2013 None chest pain/pressure Exacerbating Factors exertion 11/14/2013 None diabetes mellitus Quality non-insulin dependent 11/14/2013 None diabetes mellitus Quality chronic 11/14/2013 None diabetes mellitus Test results Pt checking blood glucose readings, did not bring results to clinic 11/14/2013 None fatigue Quality chronic 11/14/2013 None fatigue Quality worsening 11/14/2013 None hypertension Quality chr onic 11/14/2013 None hypertension Onset and Resolution ongoing 11/14/2013 None hypertension Blood Pressure Values patient checking blood pressure at home - did not bring in readings 11/14/2013 None hypertension Quality chr onic 10/24/2013 None hypertension Pertinent Findings Denies dizziness 10/24/2013 None hypertension Pertinent Findings dyspnea 10/24/2013 None hypertension Pertinent Findings edema 10/24/2013 None hypertension Pertinent Findings Denies palpitations 10/24/2013 None diabetes mellitus Test results Pt checking blood glucose readings, did not bring results to clinic 10/24/2013 None diabetes mellitus Pertinent Findings nausea 10/24/2013 None hypertension Pertinent Findings decreased energy 10/24/2013 None hypertension Blood Pressure Values patient checking blood pressure at home - did not bring in readings 10/24/2013 at home bp 140/70's hypertension Onset and Resolution ongoing 10/24/2013 None hypertension Onset of Symptom during adulthood 10/24/2013 None chest pain/pressure Quality chronic 06/24/2013 None chest pain/pressure Location in the epigastric area 06/24/2013 no relief with carafate chest pain/pressure Onset of Symptom 1 months ago 06/24/2013 None chest pain/pressure Alleviating Factors rest 06/24/2013 None chest pain/pressure Onset and Resolution ongoing 06/24/2013 states has it on a daily basis and lasts different lengths of time. can't walk up stairs without pain chest pain/pressure Pertinent Findings dyspnea 06/24/2013 None chest pain/pressure Pertinent Findings dyspnea on exertion 06/24/2013 None chest pain/pressure Pertinent Findings Denies lightheadedness 06/24/2013 None hypertension Quality chr onic 06/05/2013 None hypertension Onset and Resolution ongoing 06/05/2013 None hypertension Blood Pressure Values patient checking blood pressure at home - did not bring in readings 06/05/2013 None hypertension Pertinent Findings Denies dizziness 06/05/2013 None hypertension Pertinent Findings dyspnea 06/05/2013 None hypertension Pertinent Findings edema 06/05/2013 None diabetes mellitus Quality non-insulin dependent 06/05/2013 None diabetes mellitus Glucose monitoring occasional glucose testing 06/05/2013 None diabetes mellitus Test results Pt checking blood glucose readings, did not bring results to clinic 06/05/2013 None diabetes mellitus Blood glucose levels between 60 and 120 06/05/2013 None diabetes mellitus Pertinent Findings Denies behavioral changes 06/05/2013 None diabetes mellitus Pertinent Findings Denies increased hunger 06/05/2013 None diabetes mellitus Pertinent Findings lethargy 06/05/2013 None diabetes mellitus Pertinent Findings Denies mental status change 06/05/2013 None diabetes mellitus Pertinent Findings Denies nausea 06/05/2013 None diabetes mellitus Quality non-insulin dependent 04/01/2013 None diabetes mellitus Nutrition regular diet 04/01/2013 None diabetes mellitus Nutrition ADA diet 04/01/2013 None diabetes mellitus Pertinent Findings Denies dehydration 04/01/2013 None diabetes mellitus Pertinent Findings Denies dizziness 04/01/2013 None diabetes mellitus Pertinent Findings Denies increased hunger 04/01/2013 None diabetes mellitus Pertinent Findings Denies lethargy 04/01/2013 None diabetes mellitus Pertinent Findings Denies mental status change 04/01/2013 None diabetes mellitus Pertinent Findings Denies nausea 04/01/2013 None diabetes mellitus Pertinent Findings Denies tingling 04/01/2013 None hypertension Quality chr onic 04/01/2013 None hypertension Onset and Resolution ongoing 04/01/2013 None hypertension Blood Pressure Values patient checking blood pressure at home - did not bring in readings 04/01/2013 None hypertension Alleviating Factors medication 04/01/2013 None hypertension Pertinent Findings Denies decreased energy 04/01/2013 None hypertension Pertinent Findings Denies dizziness 04/01/2013 None hypertension Pertinent Findings Denies nausea 04/01/2013 None hypertension Pertinent Findings Denies orthostatic hypotension 04/01/2013 None hypertension Pertinent Findings Denies palpitations 04/01/2013 None hypertension Pertinent Findings Denies tachycardia 04/01/2013 None diabetes mellitus Test results Pt checking blood glucose readings, did not bring results to clinic 04/01/2013 None hypertension Frequency of Episodes increasing 04/01/2013 concerned about bp rising. states since HCTZ was stopped due to kidney function his blood pressure has been gradually increasing Hospital Follow Up Quality acute illness 01/29/2013 None Hospital Follow Up Onset and Resolution improved but gets fatigued easily 01/29/2013 None Hospital Follow Up Severity moderate 01/29/2013 None Hospital Follow Up Pertinent Findings other arthralgias 01/29/2013 None Hospital Follow Up Pertinent Findings Denies other neurologic symptoms 01/29/2013 None Hospital Follow Up Pertinent Findings Denies pain 01/29/2013 None Hospital Follow Up Alleviating Factors medication 01/29/2013 IV and oral doxycycline edema Quality painless 12/25/2012 None edema Quality pitting 12/25/2012 None edema Onset and Resolution ongoing 12/25/2012 None edema Quality worsening 12/25/2012 None edema Location on both a nkles 12/25/2012 None edema Pertinent Findings Denies limb pain / tenderness 12/25/2012 None edema Pertinent Findings Denies limb redness 12/25/2012 None edema Pertinent Findings Denies dyspnea 12/25/2012 None edema Triggers diet [facility] 12/25/2012 None edema Exacerbating Factors salty foods 12/25/2012 None edema Exacerbating Factors standing 12/25/2012 None diabetes mellitus Quality non-insulin dependent 10/01/2012 None diabetes mellitus Test results Pt checking blood glucose readings, did not bring results to clinic 10/01/2012 None diabetes mellitus Glucose monitoring occasional glucose testing 10/01/2012 None diabetes mellitus Nutrition regular diet 10/01/2012 None diabetes mellitus Nutrition ADA diet 10/01/2012 None diabetes mellitus Pertinent Findings Denies dizziness 10/01/2012 None diabetes mellitus Pertinent Findings Denies dehydration 10/01/2012 None diabetes mellitus Pertinent Findings Denies increased hunger 10/01/2012 None diabetes mellitus Pertinent Findings Denies lethargy 10/01/2012 None diabetes mellitus Pertinent Findings Denies mental status change 10/01/2012 None diabetes mellitus Pertinent Findings Denies nausea 10/01/2012 None diabetes mellitus Pertinent Findings Denies tingling 10/01/2012 None hypertension Quality chr onic 10/01/2012 None hypertension Onset and Resolution ongoing 10/01/2012 None hypertension Blood Pressure Values patient checking blood pressure at home - did not bring in readings 10/01/2012 None hypertension Alleviating Factors medication 10/01/2012 None hypertension Pertinent Findings Denies decreased energy 10/01/2012 None hypertension Pertinent Findings Denies dizziness 10/01/2012 None hypertension Pertinent Findings Denies orthostatic hypotension 10/01/2012 None hypertension Pertinent Findings Denies palpitations 10/01/2012 None hypertension Pertinent Findings Denies tachycardia 10/01/2012 None hypertension Pertinent Findings Denies nausea 10/01/2012 None cough Location in the th roat 06/29/2012 None cough Quality dry 06/29/2012 None cough Onset and Resolution gradual in onset 06/29/2012 None cough Onset of Symptom 1 months ago 06/29/2012 None cough Pertinent Findings chest discomfort 06/29/2012 None cough Onset and Resolution ongoing 06/29/2012 None cough Limitation on Activities does not limit activities 06/29/2012 None cough Frequency of Episodes unchanged 06/29/2012 None cough Triggers no known associated factors 06/29/2012 None cough Pertinent Findings dyspnea 06/29/2012 None cough Pertinent Findings hoarseness 06/29/2012 None cough Pertinent Findings Denies lethargy 06/29/2012 None cough Pertinent Findings Denies nausea 06/29/2012 None cough Pertinent Findings Denies purulent sputum 06/29/2012 None cough Pertinent Findings sputum production 06/29/2012 None cough Location in the jose ng 05/28/2012 None cough Quality acute 05/28/2012 None cough Quality productive 05/28/2012 None cough Onset and Resolution sudden in onset 05/28/2012 None cough Onset of Symptom 1 weeks ago 05/28/2012 None diabetes mellitus Quality non-insulin dependent 04/02/2012 None diabetes mellitus Severity mild 04/02/2012 None diabetes mellitus Quality chronic 04/02/2012 None diabetes mellitus Onset of Symptom onset as an adult 04/02/2012 None diabetes mellitus Alleviating Factors medication 04/02/2012 None diabetes mellitus Alleviating Factors diet 04/02/2012 None diabetes mellitus Alleviating Factors exercise 04/02/2012 None diabetes mellitus Nutrition ADA diet 04/02/2012 None cholesterol followup Quality chronic 04/02/2012 None cholesterol followup Onset and Resolution ongoing 04/02/2012 None cholesterol followup Onset of Symptom during adulthood 04/02/2012 None cholesterol followup Frequency of Episodes unchanged 04/02/2012 None cholesterol followup Triggers no known associated factors 04/02/2012 None cholesterol followup Alleviating Factors medication 04/02/2012 None blood pressure followup Quality chronic 04/02/2012 None blood pressure followup Onset and Re solution ongoing 04/02/2012 None blood pressure followup Onset of Symptom during adulthood 04/02/2012 None blood pressure followup Blood Pressu re Values not checking blood pressure at home 04/02/2012 None blood pressure followup Frequency of Episodes unchanged 04/02/2012 Non e blood pressure followup Alleviating Factor s exercise 04/02/2012 None blood pressure followup Alleviating Factor s medication 04/02/2012 None sore throat Location dif fusely 01/24/2012 None sore throat Quality wors ening 01/24/2012 None sore throat Onset of Symptom 3 days ago 01/24/2012 None cough Location in the jose ng 01/24/2012 None cough Onset and Resolution gradual in onset 01/24/2012 None cough Onset of Symptom 3 weeks ago 01/24/2012 None sore throat Onset and Resolution ongoing 01/24/2012 None sore throat Limitation on Activities does not limit oral intake 01/24/2012 None sore throat Frequency of Episodes increasing 01/24/2012 None sore throat Triggers no known associated factors 01/24/2012 None cough Limitation on Activities does not limit activities 01/24/2012 None cough Quality acute 01/24/2012 None cough Frequency of Episodes unchanged 01/24/2012 None cough Triggers no known associated factors 01/24/2012 None blood pressure followup Alleviating Factor s medication 10/03/2011 None blood pressure followup Alleviating Factor s exercise 10/03/2011 None blood pressure followup Blood Pressu re Values not checking blood pressure at home 10/03/2011 None blood pressure followup Frequency of Episodes unchanged 10/03/2011 Non e blood pressure followup Onset and Re solution ongoing 10/03/2011 None blood pressure followup Onset of Symptom during adulthood 10/03/2011 None blood pressure followup Quality chronic 10/03/2011 None cholesterol followup Alleviating Factors medication 10/03/2011 None cholesterol followup Frequency of Episodes unchanged 10/03/2011 None cholesterol followup Onset and Resolution ongoing 10/03/2011 None cholesterol followup Onset of Symptom during adulthood 10/03/2011 None cholesterol followup Quality chronic 10/03/2011 None cholesterol followup Triggers no known associated factors 10/03/2011 None diabetes mellitus Alleviating Factors medication 10/03/2011 None diabetes mellitus Alleviating Factors exercise 10/03/2011 None diabetes mellitus Alleviating Factors diet 10/03/2011 None diabetes mellitus Glucose monitoring fasting 10/03/2011 None diabetes mellitus Nutrition ADA diet 10/03/2011 None diabetes mellitus Onset of Symptom onset as an adult 10/03/2011 None diabetes mellitus Quality chronic 10/03/2011 None diabetes mellitus Test results HgbA1c level _ 10/03/2011 None diabetes mellitus Severity mild 10/03/2011 None diabetes mellitus Exercise moderate exercise 10/03/2011 walking 30 - 40 minutes d [employer], and golfing. diabetes mellitus Quality non-insulin dependent 05/30/2011 None diabetes mellitus Onset of Symptom onset as an adult 05/30/2011 None diabetes mellitus Severity mild 05/30/2011 None diabetes mellitus Blood glucose levels between 60 and 120 05/30/2011 None diabetes mellitus Glucose monitoring daily 05/30/2011 None diabetes mellitus Exercise minimal exercise 05/30/2011 None Symptom Name Status Resu lt Effective Date Notes Quality chronic 11/01/2018 None Quality primary hypert ension 11/01/2018 None Quality stable 11/01/2018 None Onset and Resolution o ngoing 11/01/2018 None Onset of Symptom durin g adulthood 11/01/2018 None Blood Pressure Values patient checking blood pressure at home - did not bring in readings 11/01/2018 None Alleviating Factors me dication 11/01/2018 None Pertinent Findings Den ies dizziness 11/01/2018 None Pertinent Findings dys pnea 11/01/2018 with exertion Pertinent Findings brynn ma 11/01/2018 "some"- but not as bad as it was Quality non-insulin de pendent 11/01/2018 None Exacerbating Factors d iet 11/01/2018 None Pertinent Findings Den ies nausea 11/01/2018 None Location on the left 11/01/2018 None Quality intermittent 11/01/2018 None Onset of Symptom frankie hs ago 11/01/2018 None Frequency of Episodes daily 11/01/2018 None Limitation on Activities allows ambulation 11/01/2018 None Limitation on Activities allows weight bearing activity 11/01/[address] Factors re st 11/01/2018 None Exacerbating Factors a ctivity 11/01/2018 None Quality chronic 10/08/2018 None Quality primary hypert ension 10/08/2018 None Quality stable 10/08/2018 None Onset and Resolution o ngoing 10/08/2018 None Onset of Symptom durin g adulthood 10/08/2018 None Blood Pressure Values patient checking blood pressure at home - did not bring in readings 10/08/2018 None Alleviating Factors me dication 10/08/2018 None Pertinent Findings Den ies dizziness 10/08/2018 None Pertinent Findings dys pnea 10/08/2018 with exertion Pertinent Findings brynn ma 10/08/2018 "some"- but not as bad as it was Quality non-insulin de pendent 10/08/2018 None Exacerbating Factors d iet 10/08/2018 None Pertinent Findings Den ies nausea 10/08/2018 None Location on the left 10/08/2018 None Quality intermittent 10/08/2018 None Onset of Symptom frankie hs ago 10/08/2018 None Frequency of Episodes daily 10/08/2018 None Limitation on Activities allows ambulation 10/08/2018 None Limitation on Activities allows weight bearing activity 10/08/2018 None Alleviating Factors re st 10/08/2018 None Exacerbating Factors a ctivity 10/08/2018 None Location on the right 09/27/2018 None Quality constant 09/27/2018 None Quality worsening 09/27/2018 None Onset and Resolution o ngoing 09/27/2018 None Onset of Symptom 3-4 w eeks ago 09/27/2018 None Frequency of Episodes daily 09/27/2018 None Frequency of Episodes increasing 09/27/2018 None Alleviating Factors re st 09/27/2018 None Exacerbating Factors w eight bearing 09/27/2018 None Exacerbating Factors a ctivity 09/27/2018 None Location Right Hip 09/11/2018 None Location on the right ankle 09/11/2018 None Location on the right knee 09/11/2018 None Quality aching 09/11/2018 None Quality intermittent 09/11/2018 None Quality sharp pain 09/11/2018 None Onset and Resolution s udden in onset 09/11/2018 None Onset of Symptom 10 da ys ago 09/11/2018 None Limitation on Activities moderately limits activities 09/11/2018 None Frequency of Episodes daily 09/11/2018 None Quality chronic 06/04/2018 None Quality primary hypert ension 06/04/2018 None Onset and Resolution o ngoing 06/04/2018 None Onset of Symptom durin g adulthood 06/04/2018 None Blood Pressure Values patient checking blood pressure at home - did not bring in readings 06/04/2018 None Alleviating Factors me dication 06/04/2018 None Pertinent Findings Den ies dizziness 06/04/2018 None Pertinent Findings dys pnea 06/04/2018 with exertion Pertinent Findings brynn ma 06/04/2018 "some"- but not as bad as it was Quality non-insulin de pendent 06/04/2018 None Exacerbating Factors d iet 06/04/2018 None Pertinent Findings Den ies nausea 06/04/2018 None Location on the left 06/04/2018 None Quality intermittent 06/04/2018 None Onset of Symptom frankie hs ago 06/04/2018 None Frequency of Episodes daily 06/04/2018 None Limitation on Activities allows ambulation 06/04/2018 None Limitation on Activities allows weight bearing activity 06/04/2018 [address] Alleviating Factors re st 06/04/2018 None Exacerbating Factors a ctivity 06/04/2018 None Glucose monitoring occ asional glucose testing 06/04/2018 -does not check often Quality acute 06/04/2018 None Quality productive 06/04/2018 None Quality improving 06/04/2018 None Pertinent Findings spu brendan production 06/04/2018 None Quality stable 06/04/2018 None Annual Medicare Wellness Exam Alcohol Use does not drink any alcohol 03/27/2018 None Annual Medicare Wellness Exam Aspirin Use yes 03/27/2018 None Annual Medicare Wellness Exam Blood Glucose (self reported) desireable (below 100) 03/27/2018 None Annual Medicare Wellness Exam Blood Pressure (self reported) borderline (120/80 - 139/89) 018 None Annual Medicare Wellness Exam Choles terol (self reported) desireable (below 200) 03/27/2018 None Annual Medicare Wellness Exam Depres cele (last 6 months) almost never 03/27/2018 None Annual Medicare Wellness Exam Depres cele or Hopelessness almost never 03/27/2018 None Annual Medicare Wellness Exam Descri be Your Health good 03/27/2018 None Annual Medicare Wellness Exam Exerci se Habits does not exercise 03/27/2018 None Annual Medicare Wellness Exam Handli ng Stress usually len effectively 03/27/2018 None Annual Medicare Wellness Exam Hemagl obin A-1C (self reported) don't know 03/27/2018 No ne Annual Medicare Wellness Exam Hours of Sleep 8 03/27/2018 None Annual Medicare Wellness Exam Intera ction with Friends yes 03/27/2018 None Annual Medicare Wellness Exam Intere sts & Pleasure most of the time 03/27/2018 None Annual Medicare Wellness Exam Life S atisfaction satisfied 03/27/2018 Non e Annual Medicare Wellness Exam Motor Vehicle Safety always fastens seat belt: y 03/27/20 18 None Annual Medicare Wellness Exam Motor Vehicle Safety drives after drinking: n 03/27/2018 None Annual Medicare Wellness Exam Motor Vehicle Safety rides with someone who has been drinking: n 03/27/2018 None Annual Medicare Wellness Exam Nutrition servings of fried food / high fat foods per day: 1 03/27/2018 None Annual Medicare Wellness Exam Nutrition servings of high fiber / whole grain per day: 2 03/27/2018 None Annual Medicare Wellness Exam Nutrition servings of vegetables / fruit per day: 2 03/27/2018 None Annual Medicare Wellness Exam Smokin g and Tobacco Use non smoker 03/27/2018 No ne Annual Medicare Wellness Exam Social & Emotional Support always 03/27/2018 None Annual Medicare Wellness Exam Stress almost never 03/27/2018 None Annual Medicare Wellness Exam Sun Exposure protects skin when outdoors: y 03/27/2018 None hypertension Quality domenic deena hypertension 03/19/2018 None hypertension Onset and Resolution ongoing 03/19/2018 None hypertension Onset of Symptom during adulthood 03/19/2018 None hypertension Blood Pressure Values patient checking blood pressure at home - did not bring in readings 03/19/2018 None hypertension Alleviating Factors medication 03/19/2018 None hypertension Pertinent Findings dizziness 03/19/2018 a little this morning hypertension Pertinent Findings dyspnea 03/19/2018 with exertion hypertension Pertinent Findings edema 03/19/2018 "some" diabetes mellitus Quality non-insulin dependent 03/19/2018 None diabetes mellitus Alleviating Factors medication 03/19/2018 None diabetes mellitus Exacerbating Factors diet 03/19/2018 None diabetes mellitus Pertinent Findings Denies nausea 03/19/2018 None hypertension Quality chr onic 03/19/2018 None diabetes mellitus Test results Pt not checking blood glucose readings at home 03/19/2018 -Will check once in a while hip pain Location on the left 03/19/2018 None hip pain Onset and Resolution ongoing 03/19/2018 None hip pain Onset of Symptom months ago 03/19/2018 None hip pain Quality intermi ttent 03/19/2018 None hip pain Frequency of Episodes daily 03/19/2018 None hip pain Limitation on Activities allows ambulation 03/19/2018 None hip pain Limitation on Activities allows weight bearing activity 03/19/2018 None hip pain Alleviating Factors rest 03/19/2018 None hip pain Exacerbating Factors activity 03/19/2018 None cough Quality acute 03/19/2018 None cough Quality intermitte nt 03/19/2018 None cough Quality productive 03/19/2018 None cough Onset and Resolution sudden in onset 03/19/2018 None cough Pertinent Findings Denies chills 03/19/2018 None cough Pertinent Findings Denies fever 03/19/2018 None cough Pertinent Findings sputum production 03/19/2018 (greenish) cough Onset of Symptom ~ 1 weeks ago 03/19/2018 None joint complaint Location in both hips 01/30/2018 None joint complaint Location in the lumbar spine 01/30/2018 None joint complaint Location on both shoulders 01/30/2018 None joint complaint Quality constant 01/30/2018 None joint complaint Onset and Resolution ongoing 01/30/2018 None joint complaint Onset of Symptom 2 weeks ago 01/30/2018 None joint complaint Pertinent Findings Denies joint redness 01/30/2018 None joint complaint Pertinent Findings Denies osteoarthritis 01/30/2018 None joint complaint Pertinent Findings tick bite 01/30/2018 2013 fatigue Quality worsening 12/26/2017 None fatigue Onset and Resolution ongoing 12/26/2017 None fatigue Onset of Symptom 2 weeks ago 12/26/2017 None fatigue Limitation on Activities moderately limits activities 12/26/2017 None fatigue Pertinent Findings back pain 12/26/2017 None fatigue Pertinent Findings Denies dizziness 12/26/2017 None fatigue Pertinent Findings dyspnea 12/26/2017 some with exertion joint complaint Location in both hips 12/26/2017 None joint complaint Location in the lumbar spine 12/26/2017 None joint complaint Location on both shoulders 12/26/2017 None joint complaint Quality constant 12/26/2017 None joint complaint Onset and Resolution ongoing 12/26/2017 None joint complaint Onset of Symptom 2 weeks ago 12/26/2017 None joint complaint Pertinent Findings Denies joint redness 12/26/2017 None joint complaint Pertinent Findings Denies osteoarthritis 12/26/2017 None joint complaint Pertinent Findings tick bite 12/26/20172012 Hospital Follow Up _ car diac disease 11/21/2017 None Hospital Follow Up Quality acute 11/21/2017 None Hospital Follow Up Severity moderate 11/21/2017 None Hospital Follow Up Pertinent Findings Denies fever 11/21/2017 None Hospital Follow Up Exacerbating Factors exertion 11/21/2017 None gastroesophageal reflux Quality intermittent 10/19/2017 None gastroesophageal reflux Quality heartburn 10/19/2017 None gastroesophageal reflux Quality regurgitation of acid 10/19/2017 None gastroesophageal reflux Onset and Re solution sudden in onset 10/19/2017 None gastroesophageal reflux Onset of Symptom 2 days ago 10/19/2017 None gastroesophageal reflux Timing of Episodes in the morning 10/19/2017 None gastroesophageal reflux Timing of Episodes in the afternoon 10/19/2017 None gastroesophageal reflux Timing of Episodes in the evening 10/19/2017 None gastroesophageal reflux Alleviating Factor s proton pump inhibitor 10/19/2017 None 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 09/18/2017 None hypertension Onset and Resolution ongoing 09/18/2017 None hypertension Onset of Symptom during adulthood 09/18/2017 None hypertension Blood Pressure Values patient checking blood pressure at home - did not bring in readings 09/18/2017 None hypertension Alleviating Factors medication 09/18/2017 None hypertension Pertinent Findings Denies dizziness 09/18/2017 None hypertension Pertinent Findings dyspnea 09/18/2017 with exertion hypertension Pertinent Findings edema 09/18/2017 "some" diabetes mellitus Quality non-insulin dependent 09/18/2017 None diabetes mellitus Alleviating Factors medication 09/18/2017 None diabetes mellitus Exacerbating Factors diet 09/18/2017 None diabetes mellitus Pertinent Findings Denies nausea 09/18/2017 None diabetes mellitus Test results Pt not checking blood glucose readings at home 09/18/2017 None Hospital Follow Up _ inf ection 07/21/2017 None Hospital Follow Up _ Oth er: sepsis, UTI 07/21/2017 None Hospital Follow Up Quality acute illness 07/21/2017 None Hospital Follow Up Pertinent Findings fever 07/21/2017 None Hospital Follow Up Pertinent Findings other neurologic symptoms 07/21/2017 None Hospital Follow Up Pertinent Findings pain 07/21/2017 None 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 05/04/2017 None hypertension Onset and Resolution ongoing 05/04/2017 None hypertension Onset of Symptom during adulthood 05/04/2017 None hypertension Blood Pressure Values patient checking blood pressure at home - did not bring in readings 05/04/2017 --140's/80's at home per patient report hypertension Alleviating Factors medication 05/04/2017 None hypertension Pertinent Findings Denies dizziness 05/04/2017 None hypertension Pertinent Findings decreased energy 05/04/2017 None hypertension Pertinent Findings dyspnea 05/04/2017 "some" with exertion hypertension Pertinent Findings edema 05/04/2017 None Hospital Follow Up _ Oth er: near-syncopal episode, hypertension, bradycardia 03/30/2017 None Hospital Follow Up Quality acute 03/30/2017 None Hospital Follow Up Onset of Symptom 12 days ago 03/30/2017 None hypertension Onset and Resolution ongoing 03/02/2017 None hypertension Onset of Symptom during adulthood 03/02/2017 None hypertension Blood Pressure Values patient checking blood pressure at home - did not bring in readings 03/02/2017 -Checks occasionally hypertension Alleviating Factors medication 03/02/2017 None hypertension Pertinent Findings Denies dizziness 03/02/2017 None hypertension Pertinent Findings dyspnea 03/02/2017 with exertion hypertension Pertinent Findings edema 03/02/2017 None diabetes mellitus Quality non-insulin dependent 03/02/2017 None diabetes mellitus Alleviating Factors medication 03/02/2017 None diabetes mellitus Exacerbating Factors diet 03/02/2017 None diabetes mellitus Pertinent Findings Denies nausea 03/02/2017 None foot pain Location on th e right 03/02/2017 None foot pain Location in th e heel 03/02/2017 None foot pain Quality acute 03/02/2017 None foot pain Onset of Symptom approx. 1 month ago 03/02/2017 None foot pain Limitation on Activities allows weight bearing activity 03/02/2017 None vertigo Quality intermit tent 03/02/2017 None vertigo Onset and Resolution ongoing 03/02/2017 None vertigo Pertinent Findings dizziness 03/02/2017 None fatigue Onset and Resolution gradual in onset 03/02/2017 None fatigue Onset and Resolution ongoing 03/02/2017 None fatigue Onset of Symptom _ months ago 03/02/2017 None fatigue Pertinent Findings Denies confusion 03/02/2017 None fatigue Pertinent Findings dizziness 03/02/2017 None fatigue Pertinent Findings Denies insomnia 03/02/2017 None fatigue Pertinent Findings Denies syncope 03/02/2017 None fatigue Pertinent Findings Denies tachycardia 03/02/2017 None fatigue Pertinent Findings Denies weakness 03/02/2017 None fatigue Pertinent Findings weight loss 03/02/2017 None vertigo Quality intermit tent 01/31/2017 None vertigo Onset and Resolution ongoing 01/31/2017 None fatigue Onset and Resolution gradual in onset 01/31/2017 None fatigue Onset and Resolution ongoing 01/31/2017 None fatigue Onset of Symptom _ months ago 01/31/2017 None fatigue Pertinent Findings dizziness 01/31/2017 None fatigue Pertinent Findings Denies confusion 01/31/2017 None fatigue Pertinent Findings Denies insomnia 01/31/2017 None fatigue Pertinent Findings Denies syncope 01/31/2017 None fatigue Pertinent Findings Denies tachycardia 01/31/2017 None fatigue Pertinent Findings Denies weakness 01/31/2017 None fatigue Pertinent Findings weight loss 01/31/2017 None vertigo Pertinent Findings dizziness 01/31/2017 None hypertension Onset and Resolution ongoing 10/25/2016 None hypertension Onset of Symptom during adulthood 10/25/2016 None hypertension Blood Pressure Values patient checking blood pressure at home - did not bring in readings 10/25/2016 -Checks occasionally hypertension Alleviating Factors medication 10/25/2016 None hypertension Pertinent Findings Denies dizziness 10/25/2016 None hypertension Pertinent Findings dyspnea 10/25/2016 with exertion hypertension Pertinent Findings edema 10/25/2016 None diabetes mellitus Quality non-insulin dependent 10/25/2016 None diabetes mellitus Test results Pt not checking blood glucose readings at home 10/25/2016 None diabetes mellitus Glucose monitoring does not test 10/25/2016 None diabetes mellitus Alleviating Factors medication 10/25/2016 None diabetes mellitus Exacerbating Factors diet 10/25/2016 None diabetes mellitus Pertinent Findings Denies nausea 10/25/2016 None foot pain Location on th e right 10/25/2016 None foot pain Location in th e heel 10/25/2016 None foot pain Quality acute 10/25/2016 None foot pain Onset of Symptom approx. 1 month ago 10/25/2016 None foot pain Limitation on Activities allows weight bearing activity 10/25/2016 None fatigue Onset and Resolution sudden in onset 07/27/2016 None fatigue Onset of Symptom 2 months ago 07/27/2016 None fatigue Limitation on Activities moderately limits activities 07/27/2016 None fatigue Triggers exertion 07/27/2016 None fatigue Exacerbating Factors medication 07/27/2016 None gait abnormality Quality acute 07/27/2016 None gait abnormality Quality unsteady 07/27/2016 None gait abnormality Onset and Resolution ongoing 07/27/2016 None gait abnormality Pertinent Findings motor weakness 07/27/2016 None fatigue Frequency of Episodes decreasing 07/27/2016 None fatigue Onset and Resolution sudden in onset 05/26/2016 None fatigue Onset of Symptom 2 months ago 05/26/2016 None fatigue Limitation on Activities moderately limits activities 05/26/2016 None fatigue Frequency of Episodes daily 05/26/2016 None fatigue Triggers exertion 05/26/2016 None fatigue Exacerbating Factors medication 05/26/2016 None gait abnormality Quality unsteady 05/12/2016 None gait abnormality Quality acute 05/12/2016 None gait abnormality Onset and Resolution ongoing 05/12/2016 None gait abnormality Pertinent Findings motor weakness 05/12/2016 None gait abnormality Assistive devices cane 05/12/2016 None back pain Location in th e left lower back area 02/23/2016 None back pain Location in th e right lower back area 02/23/2016 None back pain Quality aching 02/23/2016 None back pain Quality interm ittent 02/23/2016 None back pain Onset and Resolution ongoing 02/23/2016 None back pain Onset of Symptom months ago 02/23/2016 None back pain Limitation on Activities does not limit activities 02/23/2016 None back pain Initial treatment physical therapy 02/23/2016 None dyspnea Onset and Resolution ongoing 02/23/2016 None dyspnea Quality shortnes s of breath 02/23/2016 None dyspnea Quality intermit tent 02/23/2016 None dyspnea Alleviating Factors rest 02/23/2016 None dyspnea Exacerbating Factors exertion 02/23/2016 None hypertension Onset and Resolution ongoing 02/23/2016 None hypertension Onset of Symptom during adulthood 02/23/2016 None hypertension Blood Pressure Values not checking blood pressure at home 02/23/2016 - not often hypertension Alleviating Factors medication 02/23/2016 None hypertension Pertinent Findings Denies dizziness 02/23/2016 None hypertension Pertinent Findings dyspnea 02/23/2016 None hypertension Pertinent Findings edema 02/23/2016 None blood pressure followup Quality primary hypertension 12/10/2015 None blood pressure followup Onset and Re solution ongoing 12/10/2015 None blood pressure followup Onset of Symptom 1 months ago 12/10/2015 None blood pressure followup Blood Pressu re Values pt checking blood pressure at home, did not bring in to clinic 12/10/2015 None blood pressure followup Frequency of Episodes daily 12/10/2015 None blood pressure followup Alleviating Factor s medication 12/10/2015 None blood pressure followup Pertinent Findings Denies dizziness 12/10/2015 None blood pressure followup Pertinent Findings dyspnea 12/10/2015 with exertion blood pressure followup Pertinent Findings edema 12/10/2015 None back pain Location in th e left lower back area 11/10/2015 None back pain Location in th e right lower back area 11/10/2015 None back pain Quality interm ittent 11/10/2015 None back pain Onset and Resolution ongoing 11/10/2015 None back pain Onset of Symptom months ago 11/10/2015 None back pain Limitation on Activities does not limit activities 11/10/2015 None back pain Initial treatment physical therapy 11/10/2015 None back pain Quality aching 11/10/2015 None back pain Location in th e right lower back area 08/07/2015 None back pain Onset and Resolution ongoing 08/07/2015 None back pain Onset of Symptom _ months ago 08/07/2015 None back pain Limitation on Activities does not limit activities 08/07/2015 None back pain Location in th e left lower back area 08/07/2015 None back pain Quality interm ittent 08/07/2015 None back pain Quality improv ing 08/07/2015 None back pain Initial treatment physical therapy 08/07/2015 None back pain Quality consta nt 07/07/2015 None back pain Quality worsen ing 07/07/2015 None back pain Location in th e right lower back area 07/07/2015 None back pain Onset and Resolution ongoing 07/07/2015 None back pain Onset of Symptom _ months ago 07/07/2015 None back pain Limitation on Activities does not limit activities 07/07/2015 None Hospital Follow Up _ Ot er: for hypertensive crisis and atrial fibrillation 07/07/2015 2 separate hospital visits he states that he has been checking his blood pressure at home and it has been running "okay" running in the 140-150/60-70 range. Hospital Follow Up Quality acute 07/07/2015 None Hospital Follow Up Alleviating Factors medication 07/07/2015 None arrhythmia Quality acute 07/07/2015 None arrhythmia Quality irreg ular beats 07/07/2015 atrial fibrillation arrhythmia Onset and Resolution resolved 07/07/2015 None arrhythmia Alleviating Factors medication 07/07/2015 amiodarone ingrown toenail Quality sharp pain 04/02/2015 None ingrown toenail Onset of Symptom 3 months ago 04/02/2015 Left big toe ingrown toenail Pertinent Findings redness 04/02/2015 None ingrown toenail Pertinent Findings Denies swelling 04/02/2015 None ingrown toenail Pertinent Findings Denies fever 04/02/2015 None gastroesophageal reflux Quality heartburn 04/02/2015 None gastroesophageal reflux Onset of Symptom 3 days ago 04/02/2015 None gastroesophageal reflux Pertinent Findings Denies cough 04/02/2015 None gastroesophageal reflux Pertinent Findings dysphagia 04/02/2015 No trouble swalling but feels like food gets stuck in his throat. hypertension Quality chr onic 12/23/2014 None hypertension Onset and Resolution ongoing 12/23/2014 None hypertension Blood Pressure Values patient checking blood pressure at home - did not bring in readings 12/23/2014 Says he takes his blood pressure occasio mirtha. Said that they ran high while in hospital.he states that at home his blood pressure has been running in the 140/80's hypertension Pertinent Findings Denies dizziness 12/23/2014 None hypertension Pertinent Findings dyspnea 12/23/2014 he says he is always shor t of breath. hypertension Pertinent Findings edema 12/23/2014 says he is out of lasix, but didnt think that it helped diabetes mellitus Quality non-insulin dependent 12/23/2014 None diabetes mellitus Quality chronic 12/23/2014 None diabetes mellitus Pertinent Findings Denies dizziness 12/23/2014 None fatigue Onset and Resolution ongoing 12/23/2014 None fatigue Limitation on Activities moderately limits activities 12/23/2014 None hypertension Quality [facility] onic 10/22/2014 None hypertension Onset and Resolution ongoing 10/22/2014 None hypertension Blood Pressure Values patient checking blood pressure at home - did not bring in readings 10/22/2014 Says he takes his blood pressure occasio mirtha. Said that they ran high while in hospital.he states that at home his blood pressure has been running in the 140/80's hypertension Pertinent Findings Denies dizziness 10/22/2014 None hypertension Pertinent Findings dyspnea 10/22/2014 he says he is always shor t of breath. hypertension Pertinent Findings edema 10/22/2014 says he is out of lasix, but didnt think that it helped diabetes mellitus Quality non-insulin dependent 10/22/2014 None diabetes mellitus Quality chronic 10/22/2014 None diabetes mellitus Pertinent Findings Denies dizziness 10/22/2014 None fever Onset of Symptom 1 days ago 09/26/2014 None fever Temperature 101 de grees 09/26/2014 None fever Pertinent Findings cough 09/26/2014 None cough Quality productive 09/26/2014 greenish yellow cough Onset of Symptom 2 days ago 09/26/2014 None cough Pertinent Findings dyspnea 09/26/2014 ongoing cough Pertinent Findings Denies chest discomfort 09/26/2014 None cough Pertinent Findings fever 09/26/2014 None cough Pertinent Findings Denies nasal congestion 09/26/2014 None cough Pertinent Findings sputum production 09/26/2014 greenish yellow fever Quality acute 09/26/2014 None fever Onset and Resolution ongoing 09/26/2014 None fever Triggers no known associated factors 09/26/2014 None fever Pertinent Findings upper respiratory tract symptoms 09/26/2014 None cough Onset and Resolution ongoing 09/26/2014 None cough Location in the th roat 09/26/2014 None cough Location in the jose ng 09/26/2014 None cough Triggers no known associated factors 09/26/2014 None hypertension Quality chr onic 07/01/2014 None hypertension Onset and Resolution ongoing 07/01/2014 None hypertension Blood Pressure Values patient checking blood pressure at home - did not bring in readings 07/01/2014 Says he takes his blood pressure occasio mirtha. Said that they ran high while in hospital.he states that at home his blood pressure has been running in the 140/80's hypertension Pertinent Findings Denies dizziness 07/01/2014 None hypertension Pertinent Findings dyspnea 07/01/2014 he says he is always shor t of breath. hypertension Pertinent Findings edema 07/01/2014 says he is out of lasix, but didnt think that it helped diabetes mellitus Quality non-insulin dependent 07/01/2014 None diabetes mellitus Quality chronic 07/01/2014 None diabetes mellitus Pertinent Findings Denies dizziness 07/01/2014 None hypertension Quality chr onic 06/09/2014 None hypertension Onset and Resolution ongoing 06/09/2014 None hypertension Blood Pressure Values patient checking blood pressure at home - did not bring in readings 06/09/2014 Says he takes his blood pressure occasio mirtha. Said that they ran high while in hospital.he states that at home his blood pressure has been running in the 140/80's hypertension Pertinent Findings Denies dizziness 06/09/2014 None hypertension Pertinent Findings dyspnea 06/09/2014 he says he is always shor t of breath. hypertension Pertinent Findings edema 06/09/2014 says he is out of lasix, but didnt think that it helped diabetes mellitus Quality non-insulin dependent 06/09/2014 None diabetes mellitus Quality chronic 06/09/2014 None diabetes mellitus Pertinent Findings Denies dizziness 06/09/2014 None diabetes mellitus Test results Pt checking blood glucose readings, did not bring results to clinic 06/09/2014 only tests PRN dysuria Quality burning 05/07/2014 Not having any burning on urination toda y, but had some yesterday. urinary urgency Quality acute 05/07/2014 None urinary urgency Onset and Resolution ongoing 05/07/2014 None hypertension Quality chr onic 05/07/2014 None hypertension Onset and Resolution ongoing 05/07/2014 None hypertension Blood Pressure Values patient checking blood pressure at home - did not bring in readings 05/07/2014 Says he takes his blood pressure occasio mirtha. Said that they ran high while in hospital. diabetes mellitus Quality non-insulin dependent 05/07/2014 None diabetes mellitus Quality chronic 05/07/2014 None urinary frequency Quality improving 05/07/2014 None hypertension Pertinent Findings Denies dizziness 05/07/2014 None hypertension Pertinent Findings dyspnea 05/07/2014 he says he is always shor t of breath. hypertension Pertinent Findings edema 05/07/2014 says he is out of lasix, but didnt think that it helped diabetes mellitus Test results Pt checking blood glucose readings, did not bring results to clinic 05/07/2014 checks in the morning and is always unde r 100 diabetes mellitus Glucose monitoring occasional glucose testing 05/07/2014 None diabetes mellitus Pertinent Findings Denies dizziness 05/07/2014 None dysuria Quality burning 04/21/2014 None dysuria Quality worsening 04/21/2014 None dysuria Onset and Resolution ongoing 04/21/2014 None dysuria Onset of Symptom 2 days ago 04/21/2014 None urinary frequency Quality acute 04/21/2014 None urinary frequency Onset and Resolution ongoing 04/21/2014 None urinary frequency Onset of Symptom 2 days ago 04/21/2014 None urinary frequency Limitation on Activities moderately limits activities 04/21/2014 None urinary frequency Triggers no known associated factors 04/21/2014 None urinary urgency Quality acute 04/21/2014 None urinary urgency Onset and Resolution ongoing 04/21/2014 None urinary urgency Onset of Symptom 3 days ago 04/21/2014 None nausea Onset and Resolution ongoing 04/21/2014 None nausea Onset of Symptom 2 days ago 04/21/2014 None nausea Severity mild 04/21/2014 None nausea Triggers no known associated factors 04/21/2014 None nausea Quality acute 04/21/2014 None nausea Pertinent Findings Denies bloating 04/21/2014 None nausea Pertinent Findings chills 04/21/2014 None nausea Pertinent Findings Denies cough 04/21/2014 None nausea Pertinent Findings dyspnea 04/21/2014 - chronic - nausea Pertinent Findings fever 04/21/2014 None vomiting Onset of Symptom 1-2 days ago 04/21/2014 - no more vomitting sinc e Monday - skin lesion Onset and Resolution ongoing 02/14/2014 None skin lesion Onset of Symptom 1 weeks ago 02/14/2014 None skin lesion Significant Medical Conditions trauma 02/14/2014 tick bite skin lesion Pertinent Findings Denies ecchymotic 02/14/2014 None skin lesion Pertinent Findings Denies fever 02/14/2014 None skin lesion Location ant erior left lower leg 02/14/2014 None hypertension Quality chr onic 01/16/2014 None hypertension Onset and Resolution ongoing 01/16/2014 None hypertension Blood Pressure Values patient checking blood pressure at home - did not bring in readings 01/16/2014 None diabetes mellitus Quality non-insulin dependent 01/16/2014 None diabetes mellitus Quality chronic 01/16/2014 None diabetes mellitus Test results Pt checking blood glucose readings, did not bring results to clinic 01/16/2014 None shoulder pain Location o n both shoulders 01/16/2014 states can't raise left a rm above shoulder height shoulder pain Quality wo rsening 01/16/2014 None chest pain/pressure Location in the substernal area 11/14/2013 None chest pain/pressure Exacerbating Factors exertion 11/14/2013 None diabetes mellitus Quality non-insulin dependent 11/14/2013 None diabetes mellitus Quality chronic 11/14/2013 None diabetes mellitus Test results Pt checking blood glucose readings, did not bring results to clinic 11/14/2013 None fatigue Quality chronic 11/14/2013 None fatigue Quality worsening 11/14/2013 None hypertension Quality chr onic 11/14/2013 None hypertension Onset and Resolution ongoing 11/14/2013 None hypertension Blood Pressure Values patient checking blood pressure at home - did not bring in readings 11/14/2013 None hypertension Quality chr onic 10/24/2013 None hypertension Pertinent Findings Denies dizziness 10/24/2013 None hypertension Pertinent Findings dyspnea 10/24/2013 None hypertension Pertinent Findings edema 10/24/2013 None hypertension Pertinent Findings Denies palpitations 10/24/2013 None diabetes mellitus Test results Pt checking blood glucose readings, did not bring results to clinic 10/24/2013 None diabetes mellitus Pertinent Findings nausea 10/24/2013 None hypertension Pertinent Findings decreased energy 10/24/2013 None hypertension Blood Pressure Values patient checking blood pressure at home - did not bring in readings 10/24/2013 at home bp 140/70's hypertension Onset and Resolution ongoing 10/24/2013 None hypertension Onset of Symptom during adulthood 10/24/2013 None chest pain/pressure Quality chronic 06/24/2013 None chest pain/pressure Location in the epigastric area 06/24/2013 no relief with carafate chest pain/pressure Onset of Symptom 1 months ago 06/24/2013 None chest pain/pressure Alleviating Factors rest 06/24/2013 None chest pain/pressure Onset and Resolution ongoing 06/24/2013 states has it on a daily basis and lasts different lengths of time. can't walk up stairs without pain chest pain/pressure Pertinent Findings dyspnea 06/24/2013 None chest pain/pressure Pertinent Findings dyspnea on exertion 06/24/2013 None chest pain/pressure Pertinent Findings Denies lightheadedness 06/24/2013 None hypertension Quality chr onic 06/05/2013 None hypertension Onset and Resolution ongoing 06/05/2013 None hypertension Blood Pressure Values patient checking blood pressure at home - did not bring in readings 06/05/2013 None hypertension Pertinent Findings Denies dizziness 06/05/2013 None hypertension Pertinent Findings dyspnea 06/05/2013 None hypertension Pertinent Findings edema 06/05/2013 None diabetes mellitus Quality non-insulin dependent 06/05/2013 None diabetes mellitus Glucose monitoring occasional glucose testing 06/05/2013 None diabetes mellitus Test results Pt checking blood glucose readings, did not bring results to clinic 06/05/2013 None diabetes mellitus Blood glucose levels between 60 and 120 06/05/2013 None diabetes mellitus Pertinent Findings Denies behavioral changes 06/05/2013 None diabetes mellitus Pertinent Findings Denies increased hunger 06/05/2013 None diabetes mellitus Pertinent Findings lethargy 06/05/2013 None diabetes mellitus Pertinent Findings Denies mental status change 06/05/2013 None diabetes mellitus Pertinent Findings Denies nausea 06/05/2013 None diabetes mellitus Quality non-insulin dependent 04/01/2013 None diabetes mellitus Nutrition regular diet 04/01/2013 None diabetes mellitus Nutrition ADA diet 04/01/2013 None diabetes mellitus Pertinent Findings Denies dehydration 04/01/2013 None diabetes mellitus Pertinent Findings Denies dizziness 04/01/2013 None diabetes mellitus Pertinent Findings Denies increased hunger 04/01/2013 None diabetes mellitus Pertinent Findings Denies lethargy 04/01/2013 None diabetes mellitus Pertinent Findings Denies mental status change 04/01/2013 None diabetes mellitus Pertinent Findings Denies nausea 04/01/2013 None diabetes mellitus Pertinent Findings Denies tingling 04/01/2013 None hypertension Quality chr onic 04/01/2013 None hypertension Onset and Resolution ongoing 04/01/2013 None hypertension Blood Pressure Values patient checking blood pressure at home - did not bring in readings 04/01/2013 None hypertension Alleviating Factors medication 04/01/2013 None hypertension Pertinent Findings Denies decreased energy 04/01/2013 None hypertension Pertinent Findings Denies dizziness 04/01/2013 None hypertension Pertinent Findings Denies nausea 04/01/2013 None hypertension Pertinent Findings Denies orthostatic hypotension 04/01/2013 None hypertension Pertinent Findings Denies palpitations 04/01/2013 None hypertension Pertinent Findings Denies tachycardia 04/01/2013 None diabetes mellitus Test results Pt checking blood glucose readings, did not bring results to clinic 04/01/2013 None hypertension Frequency of Episodes increasing 04/01/2013 concerned about bp rising. states since HCTZ was stopped due to kidney function his blood pressure has been gradually increasing Hospital Follow Up Quality acute illness 01/29/2013 None Hospital Follow Up Onset and Resolution improved but gets fatigued easily 01/29/2013 None Hospital Follow Up Severity moderate 01/29/2013 None Hospital Follow Up Pertinent Findings other arthralgias 01/29/2013 None Hospital Follow Up Pertinent Findings Denies other neurologic symptoms 01/29/2013 None Hospital Follow Up Pertinent Findings Denies pain 01/29/2013 None Hospital Follow Up Alleviating Factors medication 01/29/2013 IV and oral doxycycline edema Quality painless 12/25/2012 None edema Quality pitting 12/25/2012 None edema Onset and Resolution ongoing 12/25/2012 None edema Quality worsening 12/25/2012 None edema Location on both a nkles 12/25/2012 None edema Pertinent Findings Denies limb pain / tenderness 12/25/2012 None edema Pertinent Findings Denies limb redness 12/25/2012 None edema Pertinent Findings Denies dyspnea 12/25/2012 None edema Triggers diet [facility] 12/25/2012 None edema Exacerbating Factors salty foods 12/25/2012 None edema Exacerbating Factors standing 12/25/2012 None diabetes mellitus Quality non-insulin dependent 10/01/2012 None diabetes mellitus Test results Pt checking blood glucose readings, did not bring results to clinic 10/01/2012 None diabetes mellitus Glucose monitoring occasional glucose testing 10/01/2012 None diabetes mellitus Nutrition regular diet 10/01/2012 None diabetes mellitus Nutrition ADA diet 10/01/2012 None diabetes mellitus Pertinent Findings Denies dizziness 10/01/2012 None diabetes mellitus Pertinent Findings Denies dehydration 10/01/2012 None diabetes mellitus Pertinent Findings Denies increased hunger 10/01/2012 None diabetes mellitus Pertinent Findings Denies lethargy 10/01/2012 None diabetes mellitus Pertinent Findings Denies mental status change 10/01/2012 None diabetes mellitus Pertinent Findings Denies nausea 10/01/2012 None diabetes mellitus Pertinent Findings Denies tingling 10/01/2012 None hypertension Quality chr onic 10/01/2012 None hypertension Onset and Resolution ongoing 10/01/2012 None hypertension Blood Pressure Values patient checking blood pressure at home - did not bring in readings 10/01/2012 None hypertension Alleviating Factors medication 10/01/2012 None hypertension Pertinent Findings Denies decreased energy 10/01/2012 None hypertension Pertinent Findings Denies dizziness 10/01/2012 None hypertension Pertinent Findings Denies orthostatic hypotension 10/01/2012 None hypertension Pertinent Findings Denies palpitations 10/01/2012 None hypertension Pertinent Findings Denies tachycardia 10/01/2012 None hypertension Pertinent Findings Denies nausea 10/01/2012 None cough Location in the th roat 06/29/2012 None cough Quality dry 06/29/2012 None cough Onset and Resolution gradual in onset 06/29/2012 None cough Onset of Symptom 1 months ago 06/29/2012 None cough Pertinent Findings chest discomfort 06/29/2012 None cough Onset and Resolution ongoing 06/29/2012 None cough Limitation on Activities does not limit activities 06/29/2012 None cough Frequency of Episodes unchanged 06/29/2012 None cough Triggers no known associated factors 06/29/2012 None cough Pertinent Findings dyspnea 06/29/2012 None cough Pertinent Findings hoarseness 06/29/2012 None cough Pertinent Findings Denies lethargy 06/29/2012 None cough Pertinent Findings Denies nausea 06/29/2012 None cough Pertinent Findings Denies purulent sputum 06/29/2012 None cough Pertinent Findings sputum production 06/29/2012 None cough Location in the jose ng 05/28/2012 None cough Quality acute 05/28/2012 None cough Quality productive 05/28/2012 None cough Onset and Resolution sudden in onset 05/28/2012 None cough Onset of Symptom 1 weeks ago 05/28/2012 None diabetes mellitus Quality non-insulin dependent 04/02/2012 None diabetes mellitus Severity mild 04/02/2012 None diabetes mellitus Quality chronic 04/02/2012 None diabetes mellitus Onset of Symptom onset as an adult 04/02/2012 None diabetes mellitus Alleviating Factors medication 04/02/2012 None diabetes mellitus Alleviating Factors diet 04/02/2012 None diabetes mellitus Alleviating Factors exercise 04/02/2012 None diabetes mellitus Nutrition ADA diet 04/02/2012 None cholesterol followup Quality chronic 04/02/2012 None cholesterol followup Onset and Resolution ongoing 04/02/2012 None cholesterol followup Onset of Symptom during adulthood 04/02/2012 None cholesterol followup Frequency of Episodes unchanged 04/02/2012 None cholesterol followup Triggers no known associated factors 04/02/2012 None cholesterol followup Alleviating Factors medication 04/02/2012 None blood pressure followup Quality chronic 04/02/2012 None blood pressure followup Onset and Re solution ongoing 04/02/2012 None blood pressure followup Onset of Symptom during adulthood 04/02/2012 None blood pressure followup Blood Pressu re Values not checking blood pressure at home 04/02/2012 None blood pressure followup Frequency of Episodes unchanged 04/02/2012 Non e blood pressure followup Alleviating Factor s exercise 04/02/2012 None blood pressure followup Alleviating Factor s medication 04/02/2012 None sore throat Location dif fusely 01/24/2012 None sore throat Quality wors ening 01/24/2012 None sore throat Onset of Symptom 3 days ago 01/24/2012 None cough Location in the jose ng 01/24/2012 None cough Onset and Resolution gradual in onset 01/24/2012 None cough Onset of Symptom 3 weeks ago 01/24/2012 None sore throat Onset and Resolution ongoing 01/24/2012 None sore throat Limitation on Activities does not limit oral intake 01/24/2012 None sore throat Frequency of Episodes increasing 01/24/2012 None sore throat Triggers no known associated factors 01/24/2012 None cough Limitation on Activities does not limit activities 01/24/2012 None cough Quality acute 01/24/2012 None cough Frequency of Episodes unchanged 01/24/2012 None cough Triggers no known associated factors 01/24/2012 None blood pressure followup Alleviating Factor s medication 10/03/2011 None blood pressure followup Alleviating Factor s exercise 10/03/2011 None blood pressure followup Blood Pressu re Values not checking blood pressure at home 10/03/2011 None blood pressure followup Frequency of Episodes unchanged 10/03/2011 Non e blood pressure followup Onset and Re solution ongoing 10/03/2011 None blood pressure followup Onset of Symptom during adulthood 10/03/2011 None blood pressure followup Quality chronic 10/03/2011 None cholesterol followup Alleviating Factors medication 10/03/2011 None cholesterol followup Frequency of Episodes unchanged 10/03/2011 None cholesterol followup Onset and Resolution ongoing 10/03/2011 None cholesterol followup Onset of Symptom during adulthood 10/03/2011 None cholesterol followup Quality chronic 10/03/2011 None cholesterol followup Triggers no known associated factors 10/03/2011 None diabetes mellitus Alleviating Factors medication 10/03/2011 None diabetes mellitus Alleviating Factors exercise 10/03/2011 None diabetes mellitus Alleviating Factors diet 10/03/2011 None diabetes mellitus Glucose monitoring fasting 10/03/2011 None diabetes mellitus Nutrition ADA diet 10/03/2011 None diabetes mellitus Onset of Symptom onset as an adult 10/03/2011 None diabetes mellitus Quality chronic 10/03/2011 None diabetes mellitus Test results HgbA1c level _ 10/03/2011 None diabetes mellitus Severity mild 10/03/2011 None diabetes mellitus Exercise moderate exercise 10/03/2011 walking 30 - 40 minutes d aily, and golfing. diabetes mellitus Quality non-insulin dependent 05/30/2011 None diabetes mellitus Onset of Symptom onset as an adult 05/30/2011 None diabetes mellitus Severity mild 05/30/2011 None diabetes mellitus Blood glucose levels between 60 and 120 05/30/2011 None diabetes mellitus Glucose monitoring daily 05/30/2011 None diabetes mellitus Exercise minimal exercise 05/30/2011 None Symptom Name Status Resu lt Effective Date Notes Quality chronic 02/27/2019 None Quality primary hypert ension 02/27/2019 None Onset and Resolution o ngoing 02/27/2019 None Onset of Symptom durin g adulthood 02/27/2019 None Blood Pressure Values patient checking blood pressure at home - did not bring in readings 02/27/2019 None Alleviating Factors me dication 02/27/2019 None Pertinent Findings diz ziness 02/27/2019 None Pertinent Findings dys pnea 02/27/2019 with exertion Pertinent Findings brynn ma 02/27/2019 None Quality non-insulin de pendent 02/27/2019 None Exacerbating Factors d iet 02/27/2019 None Pertinent Findings Den ies nausea 02/27/2019 None Test results Pt checki ng blood glucose readings, did not bring results to clinic 02/27/2019 None Glucose monitoring Den ies occasional glucose testing 02/27/2019 None Quality Denies chronic 02/27/2019 None Onset and Resolution g radual in onset 02/27/2019 None Limitation on Activities Denies allows weight bearing activity 02/27/2019 None Frequency of Episodes daily 02/27/2019 None Limitation on Activities moderately limits activities 02/27/2019 None Alleviating Factors si tting 02/27/2019 None Exacerbating Factors s tanding or walking 02/27/2019 None Exacerbating Factors c hanging position 02/27/2019 None Exacerbating Factors a ctivity 02/27/2019 None Quality chronic 11/01/2018 None Quality primary hypert ension 11/01/2018 None Quality stable 11/01/2018 None Onset and Resolution o ngoing 11/01/2018 None Onset of Symptom durin g adulthood 11/01/2018 None Blood Pressure Values patient checking blood pressure at home - did not bring in readings 11/01/2018 None Alleviating Factors me dication 11/01/2018 None Pertinent Findings Den ies dizziness 11/01/2018 None Pertinent Findings dys pnea 11/01/2018 with exertion Pertinent Findings brynn ma 11/01/2018 "some"- but not as bad as it was Quality non-insulin de pendent 11/01/2018 None Exacerbating Factors d iet 11/01/2018 None Pertinent Findings Den ies nausea 11/01/2018 None Location on the left 11/01/2018 None Quality intermittent 11/01/2018 None Onset of Symptom frankie hs ago 11/01/2018 None Frequency of Episodes daily 11/01/2018 None Limitation on Activities allows ambulation 11/01/2018 None Limitation on Activities allows weight bearing activity 11/01/2018 [address]leviating Factors re st 11/01/2018 None Exacerbating Factors a ctivity 11/01/2018 None Quality chronic 10/08/2018 None Quality primary hypert ension 10/08/2018 None Quality stable 10/08/2018 None Onset and Resolution o ngoing 10/08/2018 None Onset of Symptom durin g adulthood 10/08/2018 None Blood Pressure Values patient checking blood pressure at home - did not bring in readings 10/08/2018 None Alleviating Factors me dication 10/08/2018 None Pertinent Findings Den ies dizziness 10/08/2018 None Pertinent Findings dys pnea 10/08/2018 with exertion Pertinent Findings brynn ma 10/08/2018 "some"- but not as bad as it was Quality non-insulin de pendent 10/08/2018 None Exacerbating Factors d iet 10/08/2018 None Pertinent Findings Den ies nausea 10/08/2018 None Location on the left 10/08/2018 None Quality intermittent 10/08/2018 None Onset of Symptom frankie hs ago 10/08/2018 None Frequency of Episodes daily 10/08/2018 None Limitation on Activities allows ambulation 10/08/2018 None Limitation on Activities allows weight bearing activity 10/08/2018 None Alleviating Factors re st 10/08/2018 None Exacerbating Factors a ctivity 10/08/2018 None Location on the right 09/27/2018 None Quality constant 09/27/2018 None Quality worsening 09/27/2018 None Onset and Resolution o ngoing 09/27/2018 None Onset of Symptom 3-4 w eeks ago 09/27/2018 None Frequency of Episodes daily 09/27/2018 None Frequency of Episodes increasing 09/27/2018 None Alleviating Factors re st 09/27/2018 None Exacerbating Factors w eight bearing 09/27/2018 None Exacerbating Factors a ctivity 09/27/2018 None Location Right Hip 09/11/2018 None Location on the right ankle 09/11/2018 None Location on the right knee 09/11/2018 None Quality aching 09/11/2018 None Quality intermittent 09/11/2018 None Quality sharp pain 09/11/2018 None Onset and Resolution s udden in onset 09/11/2018 None Onset of Symptom 10 da ys ago 09/11/2018 None Limitation on Activities moderately limits activities 09/11/2018 None Frequency of Episodes daily 09/11/2018 None Quality chronic 06/04/2018 None Quality primary hypert ension 06/04/2018 None Onset and Resolution o ngoing 06/04/2018 None Onset of Symptom durin g adulthood 06/04/2018 None Blood Pressure Values patient checking blood pressure at home - did not bring in readings 06/04/2018 None Alleviating Factors me dication 06/04/2018 None Pertinent Findings Den ies dizziness 06/04/2018 None Pertinent Findings dys pnea 06/04/2018 with exertion Pertinent Findings brynn ma 06/04/2018 "some"- but not as bad as it was Quality non-insulin de pendent 06/04/2018 None Exacerbating Factors d iet 06/04/2018 None Pertinent Findings Den ies nausea 06/04/2018 None Location on the left 06/04/2018 None Quality intermittent 06/04/2018 None Onset of Symptom frankie hs ago 06/04/2018 None Frequency of Episodes daily 06/04/2018 None Limitation on Activities allows ambulation 06/04/2018 None Limitation on Activities allows weight bearing activity 06/04/2018 [address] Alleviating Factors re st 06/04/2018 None Exacerbating Factors a ctivity 06/04/2018 None Glucose monitoring occ asional glucose testing 06/04/2018 -does not check often Quality acute 06/04/2018 None Quality productive 06/04/2018 None Quality improving 06/04/2018 None Pertinent Findings spu brendan production 06/04/2018 None Quality stable 06/04/2018 None Annual Medicare Wellness Exam Alcohol Use does not drink any alcohol 03/27/2018 None Annual Medicare Wellness Exam Aspirin Use yes 03/27/2018 None Annual Medicare Wellness Exam Blood Glucose (self reported) desireable (below 100) 03/27/2018 None Annual Medicare Wellness Exam Blood Pressure (self reported) borderline (120/80 - 139/89) 018 None Annual Medicare Wellness Exam Choles terol (self reported) desireable (below 200) 03/27/2018 None Annual Medicare Wellness Exam Depres cele (last 6 months) almost never 03/27/2018 None Annual Medicare Wellness Exam Depres cele or Hopelessness almost never 03/27/2018 None Annual Medicare Wellness Exam Descri be Your Health good 03/27/2018 None Annual Medicare Wellness Exam Exerci se Habits does not exercise 03/27/2018 None Annual Medicare Wellness Exam Handli ng Stress usually len effectively 03/27/2018 None Annual Medicare Wellness Exam Hemagl obin A-1C (self reported) don't know 03/27/2018 No ne Annual Medicare Wellness Exam Hours of Sleep 8 03/27/2018 None Annual Medicare Wellness Exam Intera ction with Friends yes 03/27/2018 None Annual Medicare Wellness Exam Intere sts & Pleasure most of the time 03/27/2018 None Annual Medicare Wellness Exam Life S atisfaction satisfied 03/27/2018 Non e Annual Medicare Wellness Exam Motor Vehicle Safety always fastens seat belt: y 03/27/20 18 None Annual Medicare Wellness Exam Motor Vehicle Safety drives after drinking: n 03/27/2018 None Annual Medicare Wellness Exam Motor Vehicle Safety rides with someone who has been drinking: n 03/27/2018 None Annual Medicare Wellness Exam Nutrition servings of fried food / high fat foods per day: 1 03/27/2018 None Annual Medicare Wellness Exam Nutrition servings of high fiber / whole grain per day: 2 03/27/2018 None Annual Medicare Wellness Exam Nutrition servings of vegetables / fruit per day: 2 03/27/2018 None Annual Medicare Wellness Exam Smokin g and Tobacco Use non smoker 03/27/2018 No ne Annual Medicare Wellness Exam Social & Emotional Support always 03/27/2018 None Annual Medicare Wellness Exam Stress almost never 03/27/2018 None Annual Medicare Wellness Exam Sun Exposure protects skin when outdoors: y 03/27/2018 None hypertension Quality domenic deena hypertension 03/19/2018 None hypertension Onset and Resolution ongoing 03/19/2018 None hypertension Onset of Symptom during adulthood 03/19/2018 None hypertension Blood Pressure Values patient checking blood pressure at home - did not bring in readings 03/19/2018 None hypertension Alleviating Factors medication 03/19/2018 None hypertension Pertinent Findings dizziness 03/19/2018 a little this morning hypertension Pertinent Findings dyspnea 03/19/2018 with exertion hypertension Pertinent Findings edema 03/19/2018 "some" diabetes mellitus Quality non-insulin dependent 03/19/2018 None diabetes mellitus Alleviating Factors medication 03/19/2018 None diabetes mellitus Exacerbating Factors diet 03/19/2018 None diabetes mellitus Pertinent Findings Denies nausea 03/19/2018 None hypertension Quality chr onic 03/19/2018 None diabetes mellitus Test results Pt not checking blood glucose readings at home 03/19/2018 -Will check once in a while hip pain Location on the left 03/19/2018 None hip pain Onset and Resolution ongoing 03/19/2018 None hip pain Onset of Symptom months ago 03/19/2018 None hip pain Quality intermi ttent 03/19/2018 None hip pain Frequency of Episodes daily 03/19/2018 None hip pain Limitation on Activities allows ambulation 03/19/2018 None hip pain Limitation on Activities allows weight bearing activity 03/19/2018 None hip pain Alleviating Factors rest 03/19/2018 None hip pain Exacerbating Factors activity 03/19/2018 None cough Quality acute 03/19/2018 None cough Quality intermitte nt 03/19/2018 None cough Quality productive 03/19/2018 None cough Onset and Resolution sudden in onset 03/19/2018 None cough Pertinent Findings Denies chills 03/19/2018 None cough Pertinent Findings Denies fever 03/19/2018 None cough Pertinent Findings sputum production 03/19/2018 (greenish) cough Onset of Symptom ~ 1 weeks ago 03/19/2018 None joint complaint Location in both hips 01/30/2018 None joint complaint Location in the lumbar spine 01/30/2018 None joint complaint Location on both shoulders 01/30/2018 None joint complaint Quality constant 01/30/2018 None joint complaint Onset and Resolution ongoing 01/30/2018 None joint complaint Onset of Symptom 2 weeks ago 01/30/2018 None joint complaint Pertinent Findings Denies joint redness 01/30/2018 None joint complaint Pertinent Findings Denies osteoarthritis 01/30/2018 None joint complaint Pertinent Findings tick bite 01/30/2018 2013 fatigue Quality worsening 12/26/2017 None fatigue Onset and Resolution ongoing 12/26/2017 None fatigue Onset of Symptom 2 weeks ago 12/26/2017 None fatigue Limitation on Activities moderately limits activities 12/26/2017 None fatigue Pertinent Findings back pain 12/26/2017 None fatigue Pertinent Findings Denies dizziness 12/26/2017 None fatigue Pertinent Findings dyspnea 12/26/2017 some with exertion joint complaint Location in both hips 12/26/2017 None joint complaint Location in the lumbar spine 12/26/2017 None joint complaint Location on both shoulders 12/26/2017 None joint complaint Quality constant 12/26/2017 None joint complaint Onset and Resolution ongoing 12/26/2017 None joint complaint Onset of Symptom 2 weeks ago 12/26/2017 None joint complaint Pertinent Findings Denies joint redness 12/26/2017 None joint complaint Pertinent Findings Denies osteoarthritis 12/26/2017 None joint complaint Pertinent Findings tick bite 12/26/2017 2013 Hospital Follow Up _ car diac disease 11/21/2017 None Hospital Follow Up Quality acute 11/21/2017 None Hospital Follow Up Severity moderate 11/21/2017 None Hospital Follow Up Pertinent Findings Denies fever 11/21/2017 None Hospital Follow Up Exacerbating Factors exertion 11/21/2017 None gastroesophageal reflux Quality intermittent 10/19/2017 None gastroesophageal reflux Quality heartburn 10/19/2017 None gastroesophageal reflux Quality regurgitation of acid 10/19/2017 None gastroesophageal reflux Onset and Re solution sudden in onset 10/19/2017 None gastroesophageal reflux Onset of Symptom 2 days ago 10/19/2017 None gastroesophageal reflux Timing of Episodes in the morning 10/19/2017 None gastroesophageal reflux Timing of Episodes in the afternoon 10/19/2017 None gastroesophageal reflux Timing of Episodes in the evening 10/19/2017 None gastroesophageal reflux Alleviating Factor s proton pump inhibitor 10/19/2017 None 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 09/18/2017 None hypertension Onset and Resolution ongoing 09/18/2017 None hypertension Onset of Symptom during adulthood 09/18/2017 None hypertension Blood Pressure Values patient checking blood pressure at home - did not bring in readings 09/18/2017 None hypertension Alleviating Factors medication 09/18/2017 None hypertension Pertinent Findings Denies dizziness 09/18/2017 None hypertension Pertinent Findings dyspnea 09/18/2017 with exertion hypertension Pertinent Findings edema 09/18/2017 "some" diabetes mellitus Quality non-insulin dependent 09/18/2017 None diabetes mellitus Alleviating Factors medication 09/18/2017 None diabetes mellitus Exacerbating Factors diet 09/18/2017 None diabetes mellitus Pertinent Findings Denies nausea 09/18/2017 None diabetes mellitus Test results Pt not checking blood glucose readings at home 09/18/2017 None Hospital Follow Up _ inf ection 07/21/2017 None Hospital Follow Up _ Oth er: sepsis, UTI 07/21/2017 None Hospital Follow Up Quality acute illness 07/21/2017 None Hospital Follow Up Pertinent Findings fever 07/21/2017 None Hospital Follow Up Pertinent Findings other neurologic symptoms 07/21/2017 None Hospital Follow Up Pertinent Findings pain 07/21/2017 None 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 05/04/2017 None hypertension Onset and Resolution ongoing 05/04/2017 None hypertension Onset of Symptom during adulthood 05/04/2017 None hypertension Blood Pressure Values patient checking blood pressure at home - did not bring in readings 05/04/2017 --140's/80's at home per patient report hypertension Alleviating Factors medication 05/04/2017 None hypertension Pertinent Findings Denies dizziness 05/04/2017 None hypertension Pertinent Findings decreased energy 05/04/2017 None hypertension Pertinent Findings dyspnea 05/04/2017 "some" with exertion hypertension Pertinent Findings edema 05/04/2017 None Hospital Follow Up _ Oth er: near-syncopal episode, hypertension, bradycardia 03/30/2017 None Hospital Follow Up Quality acute 03/30/2017 None Hospital Follow Up Onset of Symptom 12 days ago 03/30/2017 None hypertension Onset and Resolution ongoing 03/02/2017 None hypertension Onset of Symptom during adulthood 03/02/2017 None hypertension Blood Pressure Values patient checking blood pressure at home - did not bring in readings 03/02/2017 -Checks occasionally hypertension Alleviating Factors medication 03/02/2017 None hypertension Pertinent Findings Denies dizziness 03/02/2017 None hypertension Pertinent Findings dyspnea 03/02/2017 with exertion hypertension Pertinent Findings edema 03/02/2017 None diabetes mellitus Quality non-insulin dependent 03/02/2017 None diabetes mellitus Alleviating Factors medication 03/02/2017 None diabetes mellitus Exacerbating Factors diet 03/02/2017 None diabetes mellitus Pertinent Findings Denies nausea 03/02/2017 None foot pain Location on th e right 03/02/2017 None foot pain Location in th e heel 03/02/2017 None foot pain Quality acute 03/02/2017 None foot pain Onset of Symptom approx. 1 month ago 03/02/2017 None foot pain Limitation on Activities allows weight bearing activity 03/02/2017 None vertigo Quality intermit tent 03/02/2017 None vertigo Onset and Resolution ongoing 03/02/2017 None vertigo Pertinent Findings dizziness 03/02/2017 None fatigue Onset and Resolution gradual in onset 03/02/2017 None fatigue Onset and Resolution ongoing 03/02/2017 None fatigue Onset of Symptom _ months ago 03/02/2017 None fatigue Pertinent Findings Denies confusion 03/02/2017 None fatigue Pertinent Findings dizziness 03/02/2017 None fatigue Pertinent Findings Denies insomnia 03/02/2017 None fatigue Pertinent Findings Denies syncope 03/02/2017 None fatigue Pertinent Findings Denies tachycardia 03/02/2017 None fatigue Pertinent Findings Denies weakness 03/02/2017 None fatigue Pertinent Findings weight loss 03/02/2017 None vertigo Quality intermit tent 01/31/2017 None vertigo Onset and Resolution ongoing 01/31/2017 None fatigue Onset and Resolution gradual in onset 01/31/2017 None fatigue Onset and Resolution ongoing 01/31/2017 None fatigue Onset of Symptom _ months ago 01/31/2017 None fatigue Pertinent Findings dizziness 01/31/2017 None fatigue Pertinent Findings Denies confusion 01/31/2017 None fatigue Pertinent Findings Denies insomnia 01/31/2017 None fatigue Pertinent Findings Denies syncope 01/31/2017 None fatigue Pertinent Findings Denies tachycardia 01/31/2017 None fatigue Pertinent Findings Denies weakness 01/31/2017 None fatigue Pertinent Findings weight loss 01/31/2017 None vertigo Pertinent Findings dizziness 01/31/2017 None hypertension Onset and Resolution ongoing 10/25/2016 None hypertension Onset of Symptom during adulthood 10/25/2016 None hypertension Blood Pressure Values patient checking blood pressure at home - did not bring in readings 10/25/2016 -Checks occasionally hypertension Alleviating Factors medication 10/25/2016 None hypertension Pertinent Findings Denies dizziness 10/25/2016 None hypertension Pertinent Findings dyspnea 10/25/2016 with exertion hypertension Pertinent Findings edema 10/25/2016 None diabetes mellitus Quality non-insulin dependent 10/25/2016 None diabetes mellitus Test results Pt not checking blood glucose readings at home 10/25/2016 None diabetes mellitus Glucose monitoring does not test 10/25/2016 None diabetes mellitus Alleviating Factors medication 10/25/2016 None diabetes mellitus Exacerbating Factors diet 10/25/2016 None diabetes mellitus Pertinent Findings Denies nausea 10/25/2016 None foot pain Location on th e right 10/25/2016 None foot pain Location in th e heel 10/25/2016 None foot pain Quality acute 10/25/2016 None foot pain Onset of Symptom approx. 1 month ago 10/25/2016 None foot pain Limitation on Activities allows weight bearing activity 10/25/2016 None fatigue Onset and Resolution sudden in onset 07/27/2016 None fatigue Onset of Symptom 2 months ago 07/27/2016 None fatigue Limitation on Activities moderately limits activities 07/27/2016 None fatigue Triggers exertion 07/27/2016 None fatigue Exacerbating Factors medication 07/27/2016 None gait abnormality Quality acute 07/27/2016 None gait abnormality Quality unsteady 07/27/2016 None gait abnormality Onset and Resolution ongoing 07/27/2016 None gait abnormality Pertinent Findings motor weakness 07/27/2016 None fatigue Frequency of Episodes decreasing 07/27/2016 None fatigue Onset and Resolution sudden in onset 05/26/2016 None fatigue Onset of Symptom 2 months ago 05/26/2016 None fatigue Limitation on Activities moderately limits activities 05/26/2016 None fatigue Frequency of Episodes daily 05/26/2016 None fatigue Triggers exertion 05/26/2016 None fatigue Exacerbating Factors medication 05/26/2016 None gait abnormality Quality unsteady 05/12/2016 None gait abnormality Quality acute 05/12/2016 None gait abnormality Onset and Resolution ongoing 05/12/2016 None gait abnormality Pertinent Findings motor weakness 05/12/2016 None gait abnormality Assistive devices cane 05/12/2016 None back pain Location in th e left lower back area 02/23/2016 None back pain Location in th e right lower back area 02/23/2016 None back pain Quality aching 02/23/2016 None back pain Quality interm ittent 02/23/2016 None back pain Onset and Resolution ongoing 02/23/2016 None back pain Onset of Symptom months ago 02/23/2016 None back pain Limitation on Activities does not limit activities 02/23/2016 None back pain Initial treatment physical therapy 02/23/2016 None dyspnea Onset and Resolution ongoing 02/23/2016 None dyspnea Quality shortnes s of breath 02/23/2016 None dyspnea Quality intermit tent 02/23/2016 None dyspnea Alleviating Factors rest 02/23/2016 None dyspnea Exacerbating Factors exertion 02/23/2016 None hypertension Onset and Resolution ongoing 02/23/2016 None hypertension Onset of Symptom during adulthood 02/23/2016 None hypertension Blood Pressure Values not checking blood pressure at home 02/23/2016 - not often hypertension Alleviating Factors medication 02/23/2016 None hypertension Pertinent Findings Denies dizziness 02/23/2016 None hypertension Pertinent Findings dyspnea 02/23/2016 None hypertension Pertinent Findings edema 02/23/2016 None blood pressure followup Quality primary hypertension 12/10/2015 None blood pressure followup Onset and Re solution ongoing 12/10/2015 None blood pressure followup Onset of Symptom 1 months ago 12/10/2015 None blood pressure followup Blood Pressu re Values pt checking blood pressure at home, did not bring in to clinic 12/10/2015 None blood pressure followup Frequency of Episodes daily 12/10/2015 None blood pressure followup Alleviating Factor s medication 12/10/2015 None blood pressure followup Pertinent Findings Denies dizziness 12/10/2015 None blood pressure followup Pertinent Findings dyspnea 12/10/2015 with exertion blood pressure followup Pertinent Findings edema 12/10/2015 None back pain Location in th e left lower back area 11/10/2015 None back pain Location in th e right lower back area 11/10/2015 None back pain Quality interm ittent 11/10/2015 None back pain Onset and Resolution ongoing 11/10/2015 None back pain Onset of Symptom months ago 11/10/2015 None back pain Limitation on Activities does not limit activities 11/10/2015 None back pain Initial treatment physical therapy 11/10/2015 None back pain Quality aching 11/10/2015 None back pain Location in th e right lower back area 08/07/2015 None back pain Onset and Resolution ongoing 08/07/2015 None back pain Onset of Symptom _ months ago 08/07/2015 None back pain Limitation on Activities does not limit activities 08/07/2015 None back pain Location in th e left lower back area 08/07/2015 None back pain Quality interm ittent 08/07/2015 None back pain Quality improv ing 08/07/2015 None back pain Initial treatment physical therapy 08/07/2015 None back pain Quality consta nt 07/07/2015 None back pain Quality worsen ing 07/07/2015 None back pain Location in th e right lower back area 07/07/2015 None back pain Onset and Resolution ongoing 07/07/2015 None back pain Onset of Symptom _ months ago 07/07/2015 None back pain Limitation on Activities does not limit activities 07/07/2015 None Hospital Follow Up _ Oth er: for hypertensive crisis and atrial fibrillation 07/07/2015 2 separate hospital visits he states that he has been checking his blood pressure at home and it has been running "okay" running in the 140-150/60-70 range. Hospital Follow Up Quality acute 07/07/2015 None Hospital Follow Up Alleviating Factors medication 07/07/2015 None arrhythmia Quality acute 07/07/2015 None arrhythmia Quality irreg ular beats 07/07/2015 atrial fibrillation arrhythmia Onset and Resolution resolved 07/07/2015 None arrhythmia Alleviating Factors medication 07/07/2015 amiodarone ingrown toenail Quality sharp pain 04/02/2015 None ingrown toenail Onset of Symptom 3 months ago 04/02/2015 Left big toe ingrown toenail Pertinent Findings redness 04/02/2015 None ingrown toenail Pertinent Findings Denies swelling 04/02/2015 None ingrown toenail Pertinent Findings Denies fever 04/02/2015 None gastroesophageal reflux Quality heartburn 04/02/2015 None gastroesophageal reflux Onset of Symptom 3 days ago 04/02/2015 None gastroesophageal reflux Pertinent Findings Denies cough 04/02/2015 None gastroesophageal reflux Pertinent Findings dysphagia 04/02/2015 No trouble swalling but feels like food gets stuck in his throat. hypertension Quality chr onic 12/23/2014 None hypertension Onset and Resolution ongoing 12/23/2014 None hypertension Blood Pressure Values patient checking blood pressure at home - did not bring in readings 12/23/2014 Says he takes his blood pressure occasio mirtha. Said that they ran high while in hospital.he states that at home his blood pressure has been running in the 140/80's hypertension Pertinent Findings Denies dizziness 12/23/2014 None hypertension Pertinent Findings dyspnea 12/23/2014 he says he is always shor t of breath. hypertension Pertinent Findings edema 12/23/2014 says he is out of lasix, but didnt think that it helped diabetes mellitus Quality non-insulin dependent 12/23/2014 None diabetes mellitus Quality chronic 12/23/2014 None diabetes mellitus Pertinent Findings Denies dizziness 12/23/2014 None fatigue Onset and Resolution ongoing 12/23/2014 None fatigue Limitation on Activities moderately limits activities 12/23/2014 None hypertension Quality chr onic 10/22/2014 None hypertension Onset and Resolution ongoing 10/22/2014 None hypertension Blood Pressure Values patient checking blood pressure at home - did not bring in readings 10/22/2014 Says he takes his blood pressure occasio mirtha. Said that they ran high while in hospital.he states that at home his blood pressure has been running in the 140/80's hypertension Pertinent Findings Denies dizziness 10/22/2014 None hypertension Pertinent Findings dyspnea 10/22/2014 he says he is always shor t of breath. hypertension Pertinent Findings edema 10/22/2014 says he is out of lasix, but didnt think that it helped diabetes mellitus Quality non-insulin dependent 10/22/2014 None diabetes mellitus Quality chronic 10/22/2014 None diabetes mellitus Pertinent Findings Denies dizziness 10/22/2014 None fever Onset of Symptom 1 days ago 09/26/2014 None fever Temperature 101 de grees 09/26/2014 None fever Pertinent Findings cough 09/26/2014 None cough Quality productive 09/26/2014 greenish yellow cough Onset of Symptom 2 days ago 09/26/2014 None cough Pertinent Findings dyspnea 09/26/2014 ongoing cough Pertinent Findings Denies chest discomfort 09/26/2014 None cough Pertinent Findings fever 09/26/2014 None cough Pertinent Findings Denies nasal congestion 09/26/2014 None cough Pertinent Findings sputum production 09/26/2014 greenish yellow fever Quality acute 09/26/2014 None fever Onset and Resolution ongoing 09/26/2014 None fever Triggers no known associated factors 09/26/2014 None fever Pertinent Findings upper respiratory tract symptoms 09/26/2014 None cough Onset and Resolution ongoing 09/26/2014 None cough Location in the th roat 09/26/2014 None cough Location in the jose ng 09/26/2014 None cough Triggers no known associated factors 09/26/2014 None hypertension Quality chr onic 07/01/2014 None hypertension Onset and Resolution ongoing 07/01/2014 None hypertension Blood Pressure Values patient checking blood pressure at home - did not bring in readings 07/01/2014 Says he takes his blood pressure occasio mirtha. Said that they ran high while in hospital.he states that at home his blood pressure has been running in the 140/80's hypertension Pertinent Findings Denies dizziness 07/01/2014 None hypertension Pertinent Findings dyspnea 07/01/2014 he says he is always shor t of breath. hypertension Pertinent Findings edema 07/01/2014 says he is out of lasix, but didnt think that it helped diabetes mellitus Quality non-insulin dependent 07/01/2014 None diabetes mellitus Quality chronic 07/01/2014 None diabetes mellitus Pertinent Findings Denies dizziness 07/01/2014 None hypertension Quality chr onic 06/09/2014 None hypertension Onset and Resolution ongoing 06/09/2014 None hypertension Blood Pressure Values patient checking blood pressure at home - did not bring in readings 06/09/2014 Says he takes his blood pressure occasio mirtha. Said that they ran high while in hospital.he states that at home his blood pressure has been running in the 140/80's hypertension Pertinent Findings Denies dizziness 06/09/2014 None hypertension Pertinent Findings dyspnea 06/09/2014 he says he is always shor t of breath. hypertension Pertinent Findings edema 06/09/2014 says he is out of lasix, but didnt think that it helped diabetes mellitus Quality non-insulin dependent 06/09/2014 None diabetes mellitus Quality chronic 06/09/2014 None diabetes mellitus Pertinent Findings Denies dizziness 06/09/2014 None diabetes mellitus Test results Pt checking blood glucose readings, did not bring results to clinic 06/09/2014 only tests PRN dysuria Quality burning 05/07/2014 Not having any burning on urination toda y, but had some yesterday. urinary urgency Quality acute 05/07/2014 None urinary urgency Onset and Resolution ongoing 05/07/2014 None hypertension Quality chr onic 05/07/2014 None hypertension Onset and Resolution ongoing 05/07/2014 None hypertension Blood Pressure Values patient checking blood pressure at home - did not bring in readings 05/07/2014 Says he takes his blood pressure occasio mirtha. Said that they ran high while in hospital. diabetes mellitus Quality non-insulin dependent 05/07/2014 None diabetes mellitus Quality chronic 05/07/2014 None urinary frequency Quality improving 05/07/2014 None hypertension Pertinent Findings Denies dizziness 05/07/2014 None hypertension Pertinent Findings dyspnea 05/07/2014 he says he is always shor t of breath. hypertension Pertinent Findings edema 05/07/2014 says he is out of lasix, but didnt think that it helped diabetes mellitus Test results Pt checking blood glucose readings, did not bring results to clinic 05/07/2014 checks in the morning and is always unde r 100 diabetes mellitus Glucose monitoring occasional glucose testing 05/07/2014 None diabetes mellitus Pertinent Findings Denies dizziness 05/07/2014 None dysuria Quality burning 04/21/2014 None dysuria Quality worsening 04/21/2014 None dysuria Onset and Resolution ongoing 04/21/2014 None dysuria Onset of Symptom 2 days ago 04/21/2014 None urinary frequency Quality acute 04/21/2014 None urinary frequency Onset and Resolution ongoing 04/21/2014 None urinary frequency Onset of Symptom 2 days ago 04/21/2014 None urinary frequency Limitation on Activities moderately limits activities 04/21/2014 None urinary frequency Triggers no known associated factors 04/21/2014 None urinary urgency Quality acute 04/21/2014 None urinary urgency Onset and Resolution ongoing 04/21/2014 None urinary urgency Onset of Symptom 3 days ago 04/21/2014 None nausea Onset and Resolution ongoing 04/21/2014 None nausea Onset of Symptom 2 days ago 04/21/2014 None nausea Severity mild 04/21/2014 None nausea Triggers no known associated factors 04/21/2014 None nausea Quality acute 04/21/2014 None nausea Pertinent Findings Denies bloating 04/21/2014 None nausea Pertinent Findings chills 04/21/2014 None nausea Pertinent Findings Denies cough 04/21/2014 None nausea Pertinent Findings dyspnea 04/21/2014 - chronic - nausea Pertinent Findings fever 04/21/2014 None vomiting Onset of Symptom 1-2 days ago 04/21/2014 - no more vomitting sinc e Monday - skin lesion Onset and Resolution ongoing 02/14/2014 None skin lesion Onset of Symptom 1 weeks ago 02/14/2014 None skin lesion Significant Medical Conditions trauma 02/14/2014 tick bite skin lesion Pertinent Findings Denies ecchymotic 02/14/2014 None skin lesion Pertinent Findings Denies fever 02/14/2014 None skin lesion Location ant erior left lower leg 02/14/2014 None hypertension Quality chr onic 01/16/2014 None hypertension Onset and Resolution ongoing 01/16/2014 None hypertension Blood Pressure Values patient checking blood pressure at home - did not bring in readings 01/16/2014 None diabetes mellitus Quality non-insulin dependent 01/16/2014 None diabetes mellitus Quality chronic 01/16/2014 None diabetes mellitus Test results Pt checking blood glucose readings, did not bring results to clinic 01/16/2014 None shoulder pain Location o n both shoulders 01/16/2014 states can't raise left a rm above shoulder height shoulder pain Quality wo rsening 01/16/2014 None chest pain/pressure Location in the substernal area 11/14/2013 None chest pain/pressure Exacerbating Factors exertion 11/14/2013 None diabetes mellitus Quality non-insulin dependent 11/14/2013 None diabetes mellitus Quality chronic 11/14/2013 None diabetes mellitus Test results Pt checking blood glucose readings, did not bring results to clinic 11/14/2013 None fatigue Quality chronic 11/14/2013 None fatigue Quality worsening 11/14/2013 None hypertension Quality chr onic 11/14/2013 None hypertension Onset and Resolution ongoing 11/14/2013 None hypertension Blood Pressure Values patient checking blood pressure at home - did not bring in readings 11/14/2013 None hypertension Quality chr onic 10/24/2013 None hypertension Pertinent Findings Denies dizziness 10/24/2013 None hypertension Pertinent Findings dyspnea 10/24/2013 None hypertension Pertinent Findings edema 10/24/2013 None hypertension Pertinent Findings Denies palpitations 10/24/2013 None diabetes mellitus Test results Pt checking blood glucose readings, did not bring results to clinic 10/24/2013 None diabetes mellitus Pertinent Findings nausea 10/24/2013 None hypertension Pertinent Findings decreased energy 10/24/2013 None hypertension Blood Pressure Values patient checking blood pressure at home - did not bring in readings 10/24/2013 at home bp 140/70's hypertension Onset and Resolution ongoing 10/24/2013 None hypertension Onset of Symptom during adulthood 10/24/2013 None chest pain/pressure Quality chronic 06/24/2013 None chest pain/pressure Location in the epigastric area 06/24/2013 no relief with carafate chest pain/pressure Onset of Symptom 1 months ago 06/24/2013 None chest pain/pressure Alleviating Factors rest 06/24/2013 None chest pain/pressure Onset and Resolution ongoing 06/24/2013 states has it on a daily basis and lasts different lengths of time. can't walk up stairs without pain chest pain/pressure Pertinent Findings dyspnea 06/24/2013 None chest pain/pressure Pertinent Findings dyspnea on exertion 06/24/2013 None chest pain/pressure Pertinent Findings Denies lightheadedness 06/24/2013 None hypertension Quality chr onic 06/05/2013 None hypertension Onset and Resolution ongoing 06/05/2013 None hypertension Blood Pressure Values patient checking blood pressure at home - did not bring in readings 06/05/2013 None hypertension Pertinent Findings Denies dizziness 06/05/2013 None hypertension Pertinent Findings dyspnea 06/05/2013 None hypertension Pertinent Findings edema 06/05/2013 None diabetes mellitus Quality non-insulin dependent 06/05/2013 None diabetes mellitus Glucose monitoring occasional glucose testing 06/05/2013 None diabetes mellitus Test results Pt checking blood glucose readings, did not bring results to clinic 06/05/2013 None diabetes mellitus Blood glucose levels between 60 and 120 06/05/2013 None diabetes mellitus Pertinent Findings Denies behavioral changes 06/05/2013 None diabetes mellitus Pertinent Findings Denies increased hunger 06/05/2013 None diabetes mellitus Pertinent Findings lethargy 06/05/2013 None diabetes mellitus Pertinent Findings Denies mental status change 06/05/2013 None diabetes mellitus Pertinent Findings Denies nausea 06/05/2013 None diabetes mellitus Quality non-insulin dependent 04/01/2013 None diabetes mellitus Nutrition regular diet 04/01/2013 None diabetes mellitus Nutrition ADA diet 04/01/2013 None diabetes mellitus Pertinent Findings Denies dehydration 04/01/2013 None diabetes mellitus Pertinent Findings Denies dizziness 04/01/2013 None diabetes mellitus Pertinent Findings Denies increased hunger 04/01/2013 None diabetes mellitus Pertinent Findings Denies lethargy 04/01/2013 None diabetes mellitus Pertinent Findings Denies mental status change 04/01/2013 None diabetes mellitus Pertinent Findings Denies nausea 04/01/2013 None diabetes mellitus Pertinent Findings Denies tingling 04/01/2013 None hypertension Quality chr onic 04/01/2013 None hypertension Onset and Resolution ongoing 04/01/2013 None hypertension Blood Pressure Values patient checking blood pressure at home - did not bring in readings 04/01/2013 None hypertension Alleviating Factors medication 04/01/2013 None hypertension Pertinent Findings Denies decreased energy 04/01/2013 None hypertension Pertinent Findings Denies dizziness 04/01/2013 None hypertension Pertinent Findings Denies nausea 04/01/2013 None hypertension Pertinent Findings Denies orthostatic hypotension 04/01/2013 None hypertension Pertinent Findings Denies palpitations 04/01/2013 None hypertension Pertinent Findings Denies tachycardia 04/01/2013 None diabetes mellitus Test results Pt checking blood glucose readings, did not bring results to clinic 04/01/2013 None hypertension Frequency of Episodes increasing 04/01/2013 concerned about bp rising. states since HCTZ was stopped due to kidney function his blood pressure has been gradually increasing Hospital Follow Up Quality acute illness 01/29/2013 None Hospital Follow Up Onset and Resolution improved but gets fatigued easily 01/29/2013 None Hospital Follow Up Severity moderate 01/29/2013 None Hospital Follow Up Pertinent Findings other arthralgias 01/29/2013 None Hospital Follow Up Pertinent Findings Denies other neurologic symptoms 01/29/2013 None Hospital Follow Up Pertinent Findings Denies pain 01/29/2013 None Hospital Follow Up Alleviating Factors medication 01/29/2013 IV and oral doxycycline edema Quality painless 12/25/2012 None edema Quality pitting 12/25/2012 None edema Onset and Resolution ongoing 12/25/2012 None edema Quality worsening 12/25/2012 None edema Location on both a nkles 12/25/2012 None edema Pertinent Findings Denies limb pain / tenderness 12/25/2012 None edema Pertinent Findings Denies limb redness 12/25/2012 None edema Pertinent Findings Denies dyspnea 12/25/2012 None edema [facility]gers diet [facility] 12/25/2012 None edema Exacerbating Factors salty foods 12/25/2012 None edema Exacerbating Factors standing 12/25/2012 None diabetes mellitus Quality non-insulin dependent 10/01/2012 None diabetes mellitus Test results Pt checking blood glucose readings, did not bring results to clinic 10/01/2012 None diabetes mellitus Glucose monitoring occasional glucose testing 10/01/2012 None diabetes mellitus Nutrition regular diet 10/01/2012 None diabetes mellitus Nutrition ADA diet 10/01/2012 None diabetes mellitus Pertinent Findings Denies dizziness 10/01/2012 None diabetes mellitus Pertinent Findings Denies dehydration 10/01/2012 None diabetes mellitus Pertinent Findings Denies increased hunger 10/01/2012 None diabetes mellitus Pertinent Findings Denies lethargy 10/01/2012 None diabetes mellitus Pertinent Findings Denies mental status change 10/01/2012 None diabetes mellitus Pertinent Findings Denies nausea 10/01/2012 None diabetes mellitus Pertinent Findings Denies tingling 10/01/2012 None hypertension Quality chr onic 10/01/2012 None hypertension Onset and Resolution ongoing 10/01/2012 None hypertension Blood Pressure Values patient checking blood pressure at home - did not bring in readings 10/01/2012 None hypertension Alleviating Factors medication 10/01/2012 None hypertension Pertinent Findings Denies decreased energy 10/01/2012 None hypertension Pertinent Findings Denies dizziness 10/01/2012 None hypertension Pertinent Findings Denies orthostatic hypotension 10/01/2012 None hypertension Pertinent Findings Denies palpitations 10/01/2012 None hypertension Pertinent Findings Denies tachycardia 10/01/2012 None hypertension Pertinent Findings Denies nausea 10/01/2012 None cough Location in the th roat 06/29/2012 None cough Quality dry 06/29/2012 None cough Onset and Resolution gradual in onset 06/29/2012 None cough Onset of Symptom 1 months ago 06/29/2012 None cough Pertinent Findings chest discomfort 06/29/2012 None cough Onset and Resolution ongoing 06/29/2012 None cough Limitation on Activities does not limit activities 06/29/2012 None cough Frequency of Episodes unchanged 06/29/2012 None cough Triggers no known associated factors 06/29/2012 None cough Pertinent Findings dyspnea 06/29/2012 None cough Pertinent Findings hoarseness 06/29/2012 None cough Pertinent Findings Denies lethargy 06/29/2012 None cough Pertinent Findings Denies nausea 06/29/2012 None cough Pertinent Findings Denies purulent sputum 06/29/2012 None cough Pertinent Findings sputum production 06/29/2012 None cough Location in the jose [place] 05/28/2012 None cough Quality acute 05/28/2012 None cough Quality productive 05/28/2012 None cough Onset and Resolution sudden in onset 05/28/2012 None cough Onset of Symptom 1 weeks ago 05/28/2012 None diabetes mellitus Quality non-insulin dependent 04/02/2012 None diabetes mellitus Severity mild 04/02/2012 None diabetes mellitus Quality chronic 04/02/2012 None diabetes mellitus Onset of Symptom onset as an adult 04/02/2012 None diabetes mellitus Alleviating Factors medication 04/02/2012 None diabetes mellitus Alleviating Factors diet 04/02/2012 None diabetes mellitus Alleviating Factors exercise 04/02/2012 None diabetes mellitus Nutrition ADA diet 04/02/2012 None cholesterol followup Quality chronic 04/02/2012 None cholesterol followup Onset and Resolution ongoing 04/02/2012 None cholesterol followup Onset of Symptom during adulthood 04/02/2012 None cholesterol followup Frequency of Episodes unchanged 04/02/2012 None cholesterol followup Triggers no known associated factors 04/02/2012 None cholesterol followup Alleviating Factors medication 04/02/2012 None blood pressure followup Quality chronic 04/02/2012 None blood pressure followup Onset and Re solution ongoing 04/02/2012 None blood pressure followup Onset of Symptom during adulthood 04/02/2012 None blood pressure followup Blood Pressu re Values not checking blood pressure at home 04/02/2012 None blood pressure followup Frequency of Episodes unchanged 04/02/2012 Non e blood pressure followup Alleviating Factor s exercise 04/02/2012 None blood pressure followup Alleviating Factor s medication 04/02/2012 None sore throat Location dif fusely 01/24/2012 None sore throat Quality wors ening 01/24/2012 None sore throat Onset of Symptom 3 days ago 01/24/2012 None cough Location in the jose ng 01/24/2012 None cough Onset and Resolution gradual in onset 01/24/2012 None cough Onset of Symptom 3 weeks ago 01/24/2012 None sore throat Onset and Resolution ongoing 01/24/2012 None sore throat Limitation on Activities does not limit oral intake 01/24/2012 None sore throat Frequency of Episodes increasing 01/24/2012 None sore throat Triggers no known associated factors 01/24/2012 None cough Limitation on Activities does not limit activities 01/24/2012 None cough Quality acute 01/24/2012 None cough Frequency of Episodes unchanged 01/24/2012 None cough Triggers no known associated factors 01/24/2012 None blood pressure followup Alleviating Factor s medication 10/03/2011 None blood pressure followup Alleviating Factor s exercise 10/03/2011 None blood pressure followup Blood Pressu re Values not checking blood pressure at home 10/03/2011 None blood pressure followup Frequency of Episodes unchanged 10/03/2011 Non e blood pressure followup Onset and Re solution ongoing 10/03/2011 None blood pressure followup Onset of Symptom during adulthood 10/03/2011 None blood pressure followup Quality chronic 10/03/2011 None cholesterol followup Alleviating Factors medication 10/03/2011 None cholesterol followup Frequency of Episodes unchanged 10/03/2011 None cholesterol followup Onset and Resolution ongoing 10/03/2011 None cholesterol followup Onset of Symptom during adulthood 10/03/2011 None cholesterol followup Quality chronic 10/03/2011 None cholesterol followup Triggers no known associated factors 10/03/2011 None diabetes mellitus Alleviating Factors medication 10/03/2011 None diabetes mellitus Alleviating Factors exercise 10/03/2011 None diabetes mellitus Alleviating Factors diet 10/03/2011 None diabetes mellitus Glucose monitoring fasting 10/03/2011 None diabetes mellitus Nutrition ADA diet 10/03/2011 None diabetes mellitus Onset of Symptom onset as an adult 10/03/2011 None diabetes mellitus Quality chronic 10/03/2011 None diabetes mellitus Test results HgbA1c level _ 10/03/2011 None diabetes mellitus Severity mild 10/03/2011 None diabetes mellitus Exercise moderate exercise 10/03/2011 walking 30 - 40 minutes d aily, and golfing. diabetes mellitus Quality non-insulin dependent 05/30/2011 None diabetes mellitus Onset of Symptom onset as an adult 05/30/2011 None diabetes mellitus Severity mild 05/30/2011 None diabetes mellitus Blood glucose levels between 60 and 120 05/30/2011 None diabetes mellitus Glucose monitoring daily 05/30/2011 None diabetes mellitus Exercise minimal exercise 05/30/2011 None Additional Source Comments This clinical document has been generated using [employer] software that has been certified by the Office of the National Coordinator for Health Information Technology (ONC 15.99.04.3023.[id number]) and the National Committee for [employer] (NCQA, as an eMeasure certified technology). FOR RECORDS PERTAINING TO PATIENTS WHO ARE OR HAVE BEEN ENROLLED IN A CHEMICAL D EPENDENCY/SUBSTANCE ABUSE PROGRAM, SOME INFORMATION MAY BE OMITTED. This clinica l summary was aggregated from multiple sources. Caution should be exercised in using it in the provision of clinical care. This summary normalizes information from multiple sources, and as a consequence, information in this document may ma terially change the coding, format and clinical context of patient data. In erica tion, data may be omitted in some cases. CLINICAL DECISIONS SHOULD BE BASED ON T HE PRIMARY CLINICAL RECORDS. [employer] provides no warranty or guara ntee of the accuracy or completeness of information in this document.The followi ng information is based on time limited clinical information
--- OUTSIDE RECORDS SUMMARY | 2019-11-29 07:28 | XMS REPORT | Continuity of Care Document ---
Author Organization Unknown Address Unknown Phone Unavailable Allergies Active Description Code Type Severity Reaction Onset Reported/Identified Relationship to Patient Clinical Status Yes UNKNOWN ANTIBIOTIC UNKNOWN ANTIBIOTIC Mild N/A 09/06/2007 Yes No Known Drug Allergies [id number] Drug Allergy Unknown N/A 09/06/2007 Yes ciprofloxacin [id number] Kadeem g Allergy Unknown HALLUCINATIONS 01/29/2016 Yes clonidine [id number] Drug Allergy Unknown HALLUCINATIONS 01/29/2016 Yes ciprofloxacin [id number] Kadeem g Allergy Mild HALLUCINATIONS 02/28/2017 Yes clonidine [id number] Drug Allergy Mild HALLUCINATIONS 02/28/2017 Yes AMINODORONE AMINODORONE Unknown N/A 03/18/2017 Yes amiodarone [id number] Drug Allerg y Unknown N/A 06/12/2017 Medications There is no data. 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, CEREBRAL INFARCTION 10/13/2010 Ot V45.81 AOR TOCORONARY BYPASS 10/13/2010 Ot V58.66 VIVIANE G-TERM (CURRENT) USE OF ASPIRIN 10/13/2010 Ot V58.69 OTH MED,LT,CURRENT USE 12/15/2010 Ot V45.82 PER CUTANEOUS TRANSLUM CORON ANGIOPLASTY 12/15/2010 Ot V57.89 SARA ABILITATION PROC NEC 05/16/2011 Ot 250.00 KERI B DAVID WO COMPL, TYPE II OR UNSPEC TY 05/16/2011 Ot 401.9 HYPE RTENSION NOS 05/16/2011 Ot 414.00 COR ON ATHEROSCLER NOS TYPE VESSEL, NATIV 05/16/2011 Ot 592.1 CALC ULUS OF [place]RE[place] 05/16/2011 Ot 791.9 ABN URINE FINDINGS NEC 05/16/2011 Ot V45.81 AOR TOCORONARY BYPASS 05/16/2011 Ot V58.66 VIVIANE G-TERM (CURRENT) USE OF ASPIRIN 05/16/2011 Ot V58.69 OTH MED,LT,CURRENT USE 06/08/2011 Ot 250.00 KERI B DAVID WO COMPL, TYPE II OR UNSPEC TY 06/08/2011 Ot 592.1 CALC ULUS OF [place]RE[place] 06/08/2011 Ot V04.81 ND FOR PROPHYLACTIC VACCIN AND INOCULATI 10/27/2012 TOSHA BROOKS MD Ot 601. 9 PROSTATITIS NOS 10/27/2012 TOSHA BROOKS MD Ot 788. 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 11/23/2012 SAMUEL WOLF FACC ALI FACP CCDS Ot 414.4 CORONARY ATHEROSCLEROSIS DUE TO CALCIFIE 11/23/2012 MICHAEL BAKER MD, FACC FACP CCDS Ot 426.11 ATRIOVENT BLOCK-1ST DEGR 11/23/2012 MICHAEL BAKER MD, FACC FACP CCDS Ot 426.2 LEFT BB HEMIBLOCK 11/23/2012 MICAHEL BAKER MD, FACC FACP CCDS Ot 428.9 HEART FAILURE NOS 11/23/2012 MICHAEL BAKER MD, FACCP CCDS Ot 433.10 CAROTID ARTERY OCCLUSION W [...] BAKER MD, FACC FACP CCDS Ot V58.69 OTH MED,LT,CURRENT USE 01/11/2013 RYAN LANDON MD Ot [...] MD Ot 787.91 DIARRHEA 07/09/2013 ANGELITA DUDLEY FEATHER RENOVATOR Ot 785.1 PALPITATIONS 08/20/2013 JAVIER BELLO DO Ot 531. 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 10/08/2013 SAMUEL WOLF FACC, ALI FACP CCDS Ot 786.50 CHEST PAIN NOS 10/08/2013 SAMUEL WOLF FACC, ALI FACP CCDS Ot V12.54 PERSONAL HX OF TIA, CEREBRAL INFARCTION 10/08/2013 MICHAEL BAKER MD, FACC FACP CCDS Ot V45.81 AORTOCORONARY BYPASS 10/08/2013 MICHAEL BAKER MD, FACC FACP CCDS Ot V45.82 PERCUTANEOUS TRANSLUM CORON ANGIOPLASTY 10/08/2013 MICHAEL BAKER MD, FACC FACP CCDS Ot V58.63 LONG-TERM(CURRENT)USE OF ANTIPLATELET/AN 10/08/2013 SAMUEL WOLF FACC ALI FACP CCDS Ot V58.69 OTH MED,LT,CURRENT USE 10/08/2013 SAMUEL WOLF FACC ALI FACP CCDS Ot V85.36 BODY MASS INDEX 36.0-36.9, ADULT 02/07/2014 ANDERSON, PETER J PRINTING MACHINE MECHANIC Ot 682 .6 CELLULITIS OF LEG 02/07/2014 [place] ANDERSON PRINTING MACHINE MECHANIC Ot 916 .5 INSECT BITE HIP/LEG-INF 02/07/2014 [place] ANDERSON PRINTING MACHINE MECHANIC Ot E906.4 NONVENOM ARTHROPOD BITE 04/23/2014 RYAN LANDON MD Ot 250.00 DIAB DAVID WO COMPL, TYPE II OR UNSPEC TY 04/23/2014 RYAN LANDON MD Ot 272.0 PURE HYPERCHOLESTEROLEM 04/23/2014 RYAN LANDON MD Ot 276.51 DEHYDRATION 04/23/2014 RYAN LANDON MD Ot 300.00 ANXIETY STATE NOS 04/23/2014 RYAN LANDON MD Ot 31 1 DEPRESSIVE DISORDER NEC 04/23/2014 RYAN LANDON MD Ot 389.9 HEARING LOSS NOS 04/23/2014 RYAN LANDON MD Ot 401.9 HYPERTENSION NOS 04/23/2014 RYAN LANDON MD Ot 41 2 OLD MYOCARDIAL INFARCT 04/23/2014 RYAN LANDON MD Ot 414.01 CORONARY ATHEROSCLEROSIS OF [place] CORON 04/23/2014 RYAN LANDON MD Ot 530.81 ESOPHAGEAL REFLUX 04/23/2014 RYAN LANDON MD Ot 599.0 URIN TRACT INFECTION NOS 04/23/2014 RYAN LANDON MD Ot 729.1 MYALGIA AND MYOSITIS NOS 04/23/2014 RYAN LANDON MD Ot 780.57 UNSPECIFIED SLEEP APNEA 04/23/2014 RYAN LANDON MD Ot 780.79 OTH MALAISE FATIGUE 04/23/2014 RYAN LANDON MD Ot 782.3 EDEMA 04/23/2014 YRAN LANDON MD Ot 790.95 ELEVATED C-REACTIVE PROTEIN [...] 09/24/2014 Ot 785.1 10/01/2014 Ot 785.1 10/01/2014 BELLO JAVIER Marian Ot V72. 84 10/01/2014 BARBI WOLF, RYAN A Ot 268.9 10/01/2014 BARBI WOLF, RYAN A Ot 51 5 10/01/2014 BARBI WOLF, RYAN A Ot 733.90 10/01/2014 BARBI WOLF, RYAN A Ot 786.52 10/01/2014 BARBI WOLF, RYAN A Ot V45.82 10/01/2014 Ot 185 10/01/2014 Ot 592.0 10/01/2014 CHETNA WOLF, PERNELL Fermin Ot 185 10/01/2014 CHAPIS WOLF, ANDREW Sotelo Ot 185 10/01/2014 CHAPIS WOLF, ANDREW Sotelo Ot V72.8 1 10/01/2014 CHAPIS WOLF, ANDREW Sotelo Ot V74.8 10/01/2014 CHAPIS WOLF, ANDREW Sotelo Ot 185 MALIGN NEOPL PROSTATE 10/01/2014 CHAPIS WOLF, ANDREW Sotelo Ot 250.0 0 DIAB DAVID WO COMPL, TYPE II OR UNSPEC TY 10/01/2014 CHAPIS WOLF, ANDREW Sotelo Ot 401.9 HYPERTENSION NOS 10/01/2014 CHAPIS WOLF, ANDREW Sotelo Ot 414.0 0 CORON ATHEROSCLER NOS TYPE VESSEL, NATIV 10/01/2014 CHAPIS WOLF, ANDREW Sotelo Ot V45.8 1 AORTOCORONARY BYPASS 10/22/2014 CHETNA WOLF, PERNELL Fermin Ot 185 10/23/2014 CHETNA WOLF, PERNELL E Ot 185 10/28/2014 CHAPIS WOLF, ANDREW Sotelo Ot 185 10/28/2014 CHAPIS WOLF, ANDREW A Ot V72.8 1 10/28/2014 CHAPIS WOLF, ANDREW Sotelo Ot V74.8 11/14/2014 CHAPIS WOLF, ANDREW Sotelo Ot 185 11/14/2014 CHAPIS WOLF, ANDREW Sotelo Ot V72.8 1 11/14/2014 CHAPIS WOLF, ANDREW Sotelo Ot V74.8 11/19/2014 DAIJA WOLF, ARIK Rogers Ot 250.00 DIAB DAVID WO COMPL, TYPE II OR UNSPEC TY 11/19/2014 DAIJA WOLF, ARIK Rogers Ot 426.11 ATRIOVENT BLOCK-1ST DEGR 11/19/2014 ARIK CHOE MD Ot 530.81 ESOPHAGEAL REFLUX 11/19/2014 ARIK CHOE MD Ot 564.00 UNSPEC CONSTIPATION 11/19/2014 ARIK CHOE MD Ot 785.0 TACHYCARDIA NOS 11/19/2014 ARIK CHOE MD Ot V12.54 PERSONAL HX OF TIA, CEREBRAL INFARCTION 11/19/2014 ARIK CHOE MD Ot V45.81 AORTOCORONARY BYPASS 11/19/2014 ARIK CHOE MD Ot V45.82 PERCUTANEOUS TRANSLUM CORON ANGIOPLASTY 12/04/2014 CHETNA WOLF, PERNELL Fermin Ot 185 MALIGN NEOPL PROSTATE 12/04/2014 CHETNA WOLF, PERNELL Fermin Ot V58.0 ENCOUNTER FOR RADIOTHERAPY 12/30/2014 BARBI WOLF, RYAN Sotelo Ot 268.9 12/30/2014 BARBI WOLF, RYAN Sotelo Ot 51 5 12/30/2014 BARBI WOLF, RYAN Sotelo Ot 733.90 12/30/2014 RYAN LANDON MD Ot 786.52 12/30/2014 RYAN LANDON MD Ot V45.82 02/23/2015 TIN SOTO DO Ot 414. 00 02/23/2015 TIN SOTO DO Ot 786. 09 02/26/2015 TIN SOTO DO Ot 414. 00 02/26/2015 TIN SOTO DO Ot 786. 09 02/27/2015 JUAN J ALEMAN MD Ot 250. 00 DIAB DAVID WO COMPL, TYPE II OR UNSPEC TY 02/27/2015 JUAN J ALEMAN MD Ot 272. 4 HYPERLIPIDEMIA NEC/NOS 02/27/2015 JUAN J ALEMAN MD Ot 401. 9 HYPERTENSION NOS 02/27/2015 JUAN J ALEMAN MD Ot 414. 00 CORON ATHEROSCLER NOS TYPE VESSEL, NATIV 02/27/2015 JUAN J ALEMAN MD Ot 426. 2 LEFT BB HEMIBLOCK 02/27/2015 JUAN J ALEMAN MD Ot 427. 31 ATRIAL FIBRILLATION 02/27/2015 JUAN J ALEMAN MD Ot 433. 10 CAROTID ARTERY OCCLUSION W O CEREBRAL IN 02/27/2015 JUAN J ALEMAN MD Ot 530. 81 ESOPHAGEAL REFLUX 02/27/2015 JUAN J ALEMAN MD Ot 786. 50 CHEST PAIN NOS 02/27/2015 JUAN J ALEMAN MD Ot V04. 81 ND FOR PROPHYLACTIC VACCIN AND INOCULATI 02/27/2015 JUAN J ALEMAN MD Ot V45. 81 AORTOCORONARY BYPASS 02/27/2015 JUAN J ALEMAN MD Ot V45. 82 PERCUTANEOUS TRANSLUM CORON ANGIOPLASTY 02/27/2015 JUAN J ALEMAN MD Ot 250. 00 02/27/2015 JUAN J ALEMAN MD Ot 272. 4 02/27/2015 JUAN J ALEMAN MD Ot 401. 9 02/27/2015 JUAN J ALEMAN MD Ot 414. 00 02/27/2015 JUAN J ALEMAN MD Ot 426. 2 02/27/2015 JUAN J ALEMAN MD Ot 427. 31 02/27/2015 JUAN J ALEMAN MD Ot 433. 10 02/27/2015 JUAN J ALEMAN MD Ot 530. 81 02/27/2015 JUAN J ALEMAN MD Ot 786. 50 02/27/2015 JUAN J ALEMAN MD Ot V04. 81 02/27/2015 JUAN J ALEMAN MD Ot V45. 81 02/27/2015 JUAN J ALEMAN MD Ot V45. 82 03/19/2015 TIN SOTO DO Ot 327. 23 OBSTRUCTIVE SLEEP APNEA (ADULT) (PEDIATR 03/24/2015 Ot [...] Ot 785.1 03/24/2015 JAVIER BELLO DO Ot V72. 84 03/24/2015 BARBI WOLF, RYAN Sotelo Ot 268.9 03/24/2015 BARBI WOLF, RYAN Sotelo Ot 51 5 03/24/2015 RYAN LANDON MD Ot 733.90 03/24/2015 BARBI WOLF, RYAN Sotelo Ot 786.52 03/24/2015 RYAN LANDON MD Ot V45.82 03/24/2015 Ot 185 03/24/2015 Ot 592.0 03/24/2015 CHAPIS WOLF, ANDREW A Ot 185 03/24/2015 ANDREW NATION MD Ot V72.8 1 03/24/2015 CHAPIS WOLF, ANDREW A Ot V74.8 03/24/2015 CHETNA WOLF, PERNELL E Ot 185 03/24/2015 TIN SOTO DO Ot 414. 00 03/24/2015 TIN SOTO DO Ot 786. 09 05/15/2015 CHETNA WOLF, PERNELL Fermin Ot 185 06/12/2015 CHETNA WOLF, PERNELL E Ot C61 06/17/2015 PERNELL BASILIO MD E Ot C61 06/19/2015 Ot 785.1 06/19/2015 JAVIER BELLO DO Ot V72. 84 06/19/2015 BARBI WOLF, RYAN Sotelo Ot 268.9 06/19/2015 RYAN LANDON MD Ot 51 5 06/19/2015 RYAN LANDON MD Ot 733.90 06/19/2015 RYAN LANDON MD Ot 786.52 06/19/2015 RYAN LANDON MD Ot V45.82 06/19/2015 Ot 185 06/19/2015 Ot 592.0 06/19/2015 ANDREW NATION MD A Ot 185 06/19/2015 CHAPIS WOLF, ANDREW Sotelo Ot V72.8 1 06/19/2015 CHAPIS WOLF, ANDREW Sotelo Ot V74.8 06/19/2015 CHETNA WOLF, PERNELL Fermin Ot C61 06/19/2015 SEBASTIEN MAGDALENA SUTHERLAND Ot E11.9 TYPE 2 DIABETES MELLITUS WITHOUT COMPLIC 06/19/2015 SEBASTIEN DO, MAGDALENA Ang Ot E78.5 HYPERLIPIDEMIA, UNSPECIFIED 06/19/2015 SEBASTIEN , MAGDALENA K Ot I10 ESSENTIAL (PRIMARY) HYPERTENSION 06/19/2015 [place] PRICE SUTHERLANDA K Ot I25.10 ATHSCL HEART DISEASE OF [place] CORONARY 06/19/2015 MANSFIELD , MAGDALENA Ang Ot 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 06/19/2015 [place] MAGDALENA SUTHERLAND Ot I48.0 PAROXYSMAL ATRIAL FIBRILLATION 06/19/2015 SEBASTIEN MAGDALENA SUTHERLAND Ot R07.9 CHEST PAIN, UNSPECIFIED 06/20/2015 SEBASTIEN DO, MAGDALENA Ang Ot E11.9 06/20/2015 SEBASTIEN DO, MAGDALENA Ang Ot E78.5 06/20/2015 SEBASTIEN DOPRICEA Ashia Ot I10 06/20/2015 SEBASTIEN DOMAGDALENA Ot I25.10 06/20/2015 SEBASTIEN MAGDALENA SUTHERLAND Ot I44.4 06/20/2015 SEBASTIEN DO, MAGDALENA Ang Ot I48.0 06/20/2015 SEBASTIEN MAGDALENA SUTHERLAND Ot R07.9 06/30/2015 CHETNA WOLF, PERNELL Fermin [...] 08/19/2015 Ot 786.2 08/19/2015 Ot 785.1 08/19/2015 EUGENIA SUTHERLAND JAVIER Marian Ot V72. 84 08/19/2015 BARBI WOLF, RYAN Sotelo Ot 268.9 08/19/2015 BARBI WOLF, RYAN Sotelo Ot 51 5 08/19/2015 BARBI WOLF, RYAN Sotelo Ot 733.90 08/19/2015 BARBI WOLF, RYAN Sotelo Ot 786.52 08/19/2015 BARBI WOLF, RYAN Sotelo Ot V45.82 08/19/2015 Ot 185 08/19/2015 Ot 592.0 08/19/2015 CHAPIS WOLF, ANDREW Sotelo Ot 185 08/19/2015 CHAPIS WOLF, ANDREW Sotelo Ot V72.8 1 08/19/2015 CHAPIS WOLF, ANDREW Sotelo Ot V74.8 08/19/2015 TIN SOTO DO Ot 414. 00 08/19/2015 TIN SOTO DO Ot 786. 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 10/28/2015 Ot 272.4 HYPE RLIPIDEMIA NEC/NOS 10/28/2015 Ot 401.9 HYPE RTENSION NOS 10/28/2015 Ot 413.9 ADRIAN NA PECTORIS NEC/NOS 10/28/2015 Ot 786.09 RES PIRATORY ABNORM NEC 10/28/[address] PAIN NOS 10/28/2015 Ot V45.81 AOR TOCORONARY BYPASS 10/28/2015 Ot V72.63 PRE -PROCEDURAL LABORATORY EXAMINATION 10/28/2015 Ot V72.81 CUBG-LZO-[id number] CARDIOVASCULAR 10/28/2015 Ot 592.0 CALC ULUS OF KID[place] 10/28/2015 Ot 592.1 CALC ULUS OF URE[place] 10/28/2015 Ot 592.1 CALC ULUS OF [place] 10/28/2015 Ot V72.63 PRE -PROCEDURAL LABORATORY EXAMINATION 10/28/2015 Ot V72.81 DPGD-[id number]-AFKBCXMSM CARDIOVASCULAR 10/28/2015 Ot V72.83 EXA M PRE- OPERATIVE NEC 10/28/2015 Ot V74.8 SCRE EN-BACTERIAL DIS NEC 10/28/2015 Ot 592.1 CALC ULUS OF [place] 10/28/2015 Ot V67.09 DARIEL KALYAN FOLLOW- UP, OTHER SURGERY 10/28/2015 Ot 786.2 COUGH 10/28/2015 Ot 785.1 PALP ITATIONS 10/28/2015 JAVIER BELLO DO Ot V72. 84 EXAM PRE-OPERATIVE NOS 10/28/2015 RYAN LANDON MD Ot 268.9 VITAMIN D DEFICIENCY NOS 10/28/2015 RYAN LANDON MD Ot 51 5 POSTINFLAM PULM FIBROSIS 10/28/2015 RYAN LANDON MD Ot 733.90 BONE CARTILAGE DIS NOS 10/28/2015 RYAN LANDON MD Ot 786.52 PAINFUL RESPIRATION 10/28/2015 RYAN LANDON MD Ot V45.82 PERCUTANEOUS TRANSLUM CORON ANGIOPLASTY 10/28/2015 Ot 185 MALIGN NEOPL PROSTATE 10/28/2015 Ot 592.0 CALC ULUS OF KIDNEY 10/28/2015 ANDREW NATION MD Ot 185 MALIGN NEOPL PROSTATE 10/28/2015 ANDREW NATION MD Ot V72.8 1 LDHV-SQP-ZHAQTYRBQ CARDIOVASCULAR 10/28/2015 ANDREW NATION MD Ot V74.8 SCREEN-BACTERIAL DIS NEC 10/28/2015 TIN SOTO DO Ot 414. 00 CORON ATHEROSCLER NOS TYPE VESSEL, NATIV 10/28/2015 TIN SOTO DO Ot 786. 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 10/30/2015 Ot 272.4 HYPE RLIPIDEMIA NEC/NOS 10/30/2015 Ot 401.9 HYPE RTENSION NOS 10/30/2015 Ot 413.9 ADRIAN NA PECTORIS NEC/NOS 10/30/2015 Ot 786.09 RES PIRATORY ABNORM NEC 10/30/[address] PAIN NOS 10/30/2015 Ot V45.81 AOR TOCORONARY BYPASS 10/30/2015 Ot V72.63 PRE -PROCEDURAL LABORATORY EXAMINATION 10/30/2015 Ot V72.81 ICXC-OZN-PLXDBUWLC CARDIOVASCULAR 10/30/2015 Ot 592.0 CALC ULUS OF KIDNEY 10/30/2015 Ot 592.1 CALC ULUS OF [place] 10/30/2015 Ot 592.1 CALC ULUS OF [place] 10/30/2015 Ot V72.63 PRE -PROCEDURAL LABORATORY EXAMINATION 10/30/2015 Ot V72.81 BPRB-CUD-EGLAUVIUS CARDIOVASCULAR 10/30/2015 Ot V72.83 EXA M PRE- OPERATIVE NEC 10/30/2015 Ot V74.8 SCRE EN-BACTERIAL DIS NEC 10/30/2015 Ot 592.1 CALC ULUS OF [place] 10/30/2015 Ot V67.09 DARIEL KALYAN FOLLOW- UP, OTHER SURGERY 10/30/2015 Ot 786.2 COUGH 10/30/2015 Ot 785.1 PALP ITATIONS 10/30/2015 JAVIER BELLO DO Ot V72. 84 EXAM PRE-OPERATIVE NOS 10/30/2015 RYAN LANDON MD Ot 268.9 VITAMIN D DEFICIENCY NOS 10/30/2015 RYAN LANDON MD Ot 51 5 POSTINFLAM PULM FIBROSIS 10/30/2015 RYAN LANDON MD Ot 733.90 BONE CARTILAGE DIS NOS 10/30/2015 RYAN LANDON MD Ot 786.52 PAINFUL RESPIRATION 10/30/2015 RYAN LANDON MD Ot V45.82 PERCUTANEOUS TRANSLUM CORON ANGIOPLASTY 10/30/2015 Ot 185 MALIGN NEOPL PROSTATE 10/30/2015 Ot 592.0 CALC ULUS OF KIDNEY 10/30/2015 ANDREW NATION MD Ot 185 MALIGN NEOPL PROSTATE 10/30/2015 ANDREW NATION MD Ot V72.8 1 FXVL-LVN-TYCFTMPNF CARDIOVASCULAR 10/30/2015 ANDREW NATION MD Ot V74.8 SCREEN-BACTERIAL DIS NEC 10/30/2015 TIN SOTO DO Ot 414. 00 CORON ATHEROSCLER NOS TYPE VESSEL, NATIV 10/30/2015 BRITTANY SUTHERLAND TIN Burkett Ot 786. 09 RESPIRATORY ABNORM NEC 10/30/2015 CHETNA WOLF, PERNELL E Ot C61 MALIGNANT NEOPLASM OF PROSTATE 10/30/2015 CHAPIS WOLF, ANDREW Sotelo Ot N20.0 CALCULUS OF KIDNEY 10/30/2015 CHAPIS WOLF, ANDREW Sotelo Ot Z01.8 18 ENCOUNTER FOR OTHER PREPROCEDURAL EXAMIN 11/03/2015 CHAPIS WOLF, ANDREW Sotelo Ot N20.0 CALCULUS OF KIDNEY 11/03/2015 CHAPIS WOLF, ANDREW Sotelo Ot Z79.8 99 OTHER FCI (CURRENT) DRUG THERAPY 11/04/2015 CHAPIS WOLF, ANDREW Sotelo Ot N20.0 CALCULUS OF KIDNEY 11/04/2015 CHAPIS WOLF, ANDREW Sotelo Ot Z79.8 99 OTHER ACID TANK LINER (CURRENT) DRUG THERAPY 11/04/2015 CHAPIS WOLF, ANDREW Sotelo Ot N20.0 CALCULUS OF KIDNEY 11/04/2015 CHAPIS WOLF, ANDREW Sotelo Ot Z79.8 99 OTHER FCI (CURRENT) DRUG THERAPY 11/17/2015 Ot 140.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 11/17/2015 Ot 272.4 HYPE RLIPIDEMIA NEC/NOS 11/17/2015 Ot 401.9 HYPE RTENSION NOS 11/17/2015 Ot 413.9 ADRIAN NA PECTORIS NEC/NOS 11/17/2015 Ot 786.09 RES PIRATORY ABNORM NEC 11/17/[address] PAIN NOS 11/17/2015 Ot V45.81 AOR TOCORONARY BYPASS 11/17/2015 Ot V72.63 PRE -PROCEDURAL LABORATORY EXAMINATION 11/17/2015 Ot V72.81 DGOO-SEY-GUHBVFUVG CARDIOVASCULAR 11/17/2015 Ot 592.0 CALC ULUS OF KIDNEY 11/17/2015 Ot 592.1 CALC ULUS OF URETER 11/17/2015 Ot 592.1 CALC ULUS OF URE[place] 11/17/2015 Ot V72.63 PRE -PROCEDURAL LABORATORY EXAMINATION 11/17/2015 Ot V72.81 FIVI-EWX-DGBTTSMOU CARDIOVASCULAR 11/17/2015 Ot V72.83 EXCandie M PRE- OPERATIVE NEC 11/17/2015 Ot V74.8 SCRE EN-BACTERIAL DIS NEC 11/17/2015 Ot 592.1 CALC ULUS OF [place]RE[place] 11/17/2015 Ot V67.09 DARIEL KALYAN FOLLOW- UP, OTHER SURGERY 11/17/2015 Ot 786.2 COUGH 11/17/2015 Ot 785.1 PALP ITATIONS 11/17/2015 JAVIER BELLO DO Ot V72. 84 EXAM PRE-OPERATIVE NOS 11/17/2015 BARBI WOLF, RYAN Sotelo Ot 268.9 VITAMIN D DEFICIENCY NOS 11/17/2015 BARBI WOLF, RYAN Sotelo Ot 51 5 POSTINFLAM PULM FIBROSIS 11/17/2015 RYAN LANDON MD Ot 733.90 BONE CARTILAGE DIS NOS 11/17/2015 BARBI WOLF, RYAN Sotelo Ot 786.52 PAINFUL RESPIRATION 11/17/2015 RYAN LANDON MD Ot V45.82 PERCUTANEOUS TRANSLUM CORON ANGIOPLASTY 11/17/2015 Ot 185 MALIGN NEOPL PROSTATE 11/17/2015 Ot 592.0 CALC ULUS OF KIDNEY 11/17/2015 ANDREW NATION MD Ot 185 MALIGN NEOPL PROSTATE 11/17/2015 ANDREW NATION MD Ot V72.8 1 WFWK-QDR-OOOZTDUWE CARDIOVASCULAR 11/17/2015 ANDREW NATION MD Ot V74.8 SCREEN-BACTERIAL DIS NEC 11/17/2015 TIN SOTO DO Ot 414. 00 CORON ATHEROSCLER NOS TYPE VESSEL, NATIV 11/17/2015 TIN SOTO DO Ot 786. 09 RESPIRATORY ABNORM NEC 11/17/2015 CHETNA WOLF, PERNELL Fermin Ot C61 MALIGNANT NEOPLASM OF PROSTATE 11/17/2015 TIN SOTO DO Ot 414. 00 CORON ATHEROSCLER NOS TYPE VESSEL, NATIV 11/17/2015 TIN SOTO DO Ot 786. 09 RESPIRATORY ABNORM NEC 11/17/2015 ANDREW NATION MD Ot N20.0 CALCULUS OF KIDNEY 11/17/2015 ANDREW NATION MD Ot Z09 ENCNTR FOR F/U EXAM AFT TRTMT FOR COND O 11/23/2015 ANDREW NATION MD Ot N20.0 CALCULUS OF KIDNEY 11/23/2015 ANDREW NATION MD Ot Z09 ENCNTR FOR F/U EXAM AFT TRTMT FOR COND O 12/10/2015 ANDREW NATION MD Ot N20.0 CALCULUS OF KIDNEY 12/10/2015 CHAPIS MD, ANDREW A Ot Z09 ENCNTR FOR F/U EXAM AFT TRTMT FOR COND O 12/22/2015 ANDREW NATION MD Ot N20.0 CALCULUS OF KIDNEY 12/22/2015 ANDREW NATION MD Ot Z09 ENCNTR FOR F/U EXAM AFT TRTMT FOR COND O 01/27/2016 JEFF LOUIS MD Ot R19. 5 OTHER FECAL ABNORMALITIES 01/27/2016 JEFF LOUIS MD Ot Z01.818 ENCOUNTER FOR OTHER PREPROCEDURAL EXAMIN 01/28/2016 JEFF LOUIS MD Ot R19. 5 OTHER FECAL ABNORMALITIES 01/28/2016 JEFF LOUIS MD, Ot Z01.818 ENCOUNTER FOR OTHER PREPROCEDURAL EXAMIN 01/29/2016 Ot 785.1 PALP ITATIONS 01/29/2016 CHETNA WOLF, PERNELL E Ot C61 MALIGNANT NEOPLASM OF PROSTATE 01/29/2016 JEFF LOUIS MD Ot E11. 9 TYPE 2 DIABETES MELLITUS WITHOUT COMPLIC 01/29/2016 JEFF LOUIS MD Ot I48. 91 UNSPECIFIED ATRIAL FIBRILLATION 01/29/2016 JEFF LOUIS MD Ot K62. 5 HEMORRHAGE OF ANUS AND RECTUM 01/29/2016 JEFF LOUIS MD Ot Z79. 01 ACID TANK LINER (CURRENT) USE OF ANTICOAGULANT 02/01/2016 JEFF LOUIS MD Ot E11. 9 TYPE 2 DIABETES MELLITUS WITHOUT COMPLIC 02/01/2016 JEFF LOUIS MD Ot I48. 91 UNSPECIFIED ATRIAL FIBRILLATION 02/01/2016 JEFF LOUIS MD Ot K62. 5 HEMORRHAGE OF ANUS AND RECTUM 02/01/2016 JEFF LOUIS MD Ot Z79. 01 ACID TANK LINER (CURRENT) USE OF ANTICOAGULANT 03/24/2016 TIN SOTO DO Ot 414. 00 CORON ATHEROSCLER NOS TYPE VESSEL, NATIV 03/24/2016 TIN SOTO DO Ot 786. 09 RESPIRATORY ABNORM NEC 03/24/2016 ANDREW NATION MD Ot N20.0 CALCULUS OF KIDNEY 03/24/2016 ANDREW NATION MD Ot Z09 ENCNTR FOR F/U EXAM AFT TRTMT FOR COND O 03/24/2016 Ot 140.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 03/24/2016 Ot 272.4 HYPE RLIPIDEMIA NEC/NOS 03/24/2016 Ot 401.9 HYPE RTENSION NOS 03/24/2016 Ot 413.9 ADRIAN NA PECTORIS NEC/NOS 03/24/2016 Ot 786.09 RES PIRATORY ABNORM NEC 03/24/[address] PAIN NOS 03/24/2016 Ot V45.81 AOR TOCORONARY BYPASS 03/24/2016 Ot V72.63 PRE -PROCEDURAL LABORATORY EXAMINATION 03/24/2016 Ot V72.81 [id number] CARDIOVASCULAR 03/24/2016 Ot 592.0 CALC ULUS OF KIDNEY 03/24/2016 Ot 592.1 CALC ULUS OF URETER 03/24/2016 Ot 592.1 CALC ULUS OF URETER 03/24/2016 Ot V72.63 PRE -PROCEDURAL LABORATORY EXAMINATION 03/24/2016 Ot V72.81 [id number] CARDIOVASCULAR 03/24/2016 Ot V72.83 EXA M PRE- OPERATIVE NEC 03/24/2016 Ot V74.8 SCRE EN-BACTERIAL DIS NEC 03/24/2016 Ot 592.1 CALC ULUS OF URETER 03/24/2016 Ot V67.09 DARIEL KALYAN FOLLOW- UP, OTHER SURGERY 03/24/2016 Ot 786.2 COUGH 03/24/2016 Ot 785.1 PALP ITATIONS 03/24/2016 JAVIER BELLO DO Ot V72. 84 EXAM PRE-OPERATIVE NOS 03/24/2016 RYAN LANDON MD Ot 268.9 VITAMIN D DEFICIENCY NOS 03/24/2016 RYAN LANDON MD Ot 51 5 POSTINFLAM PULM FIBROSIS 03/24/2016 RYAN LANDON MD Ot 733.90 BONE CARTILAGE DIS NOS 03/24/2016 RYAN LANDON MD Ot 786.52 PAINFUL RESPIRATION 03/24/2016 RYAN LANDON MD Ot V45.82 PERCUTANEOUS TRANSLUM CORON ANGIOPLASTY 03/24/2016 Ot 185 MALIGN NEOPL PROSTATE 03/24/2016 Ot 592.0 CALC ULUS OF KIDNEY 03/24/2016 ANDREW NATION MD Ot 185 MALIGN NEOPL PROSTATE 03/24/2016 ANDREW NATION MD Ot V72.8 1 [id number] CARDIOVASCULAR 03/24/2016 ANDREW NATION MD Ot V74.8 SCREEN-BACTERIAL DIS NEC 03/24/2016 TIN SOTO DO Ot 414. 00 CORON ATHEROSCLER NOS TYPE VESSEL, NATIV 03/24/2016 TIN SOTO DO Ot 786. 09 RESPIRATORY ABNORM NEC 03/24/2016 CHETNA WOLF, PERNELL E Ot C61 MALIGNANT NEOPLASM OF PROSTATE 03/24/2016 CHAPIS WOLF, ANDREW Sotelo Ot N20.0 CALCULUS OF KIDNEY 03/24/2016 CHAPIS WOLF, ANDREW Sotelo Ot Z09 ENCNTR FOR F/U EXAM AFT TRTMT FOR COND O 03/24/2016 DEMAR WOLF, ZHANNA Suazo Ot R07. 9 CHEST PAIN, UNSPECIFIED 04/14/2016 DEMAR WOLF, ZHANNA Suazo Ot R07. 9 CHEST PAIN, UNSPECIFIED 04/20/2016 DEMAR WOLF, ZHANNA Suazo Ot R07. 9 CHEST PAIN, UNSPECIFIED 04/26/2016 RAFAL DC DO Ot D69.6 THROMBOCYTOPENIA, UNSPECIFIED 04/26/2016 RAFAL DC DO Ot E11.9 TYPE 2 DIABETES MELLITUS WITHOUT COMPLIC 04/26/2016 RAFAL DC DO Ot E78.00 PURE HYPERCHOLESTEROLEMIA, UNSPECIFIED 04/26/2016 AMARISDER RAFAL SUTHERLAND Ot E78.5 HYPERLIPIDEMIA, UNSPECIFIED 04/26/2016 GELELIDER RAFAL SUTHERLAND Ot G47.30 SLEEP APNEA, UNSPECIFIED 04/26/2016 RAFAL DC DO Ot I10 ESSENTIAL (PRIMARY) HYPERTENSION 04/26/2016 RAFAL DC DO Ot I25.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 04/26/2016 RAFAL DC DO Ot I48.91 UNSPECIFIED ATRIAL FIBRILLATION 04/26/2016 RAFAL DC DO Ot K29.80 DUODENITIS WITHOUT BLEEDING 04/26/2016 RAFAL DC DO Ot N39.0 URINARY TRACT INFECTION, SITE NOT SPECIF 04/26/2016 RAFAL DC DO Ot R50.9 FEVER, UNSPECIFIED 04/26/2016 RAFAL DC DO Ot R53.1 WEAKNESS 04/26/2016 RAFAL DC DO Ot R74.8 ABNORMAL LEVELS OF OTHER SERUM ENZYMES 04/26/2016 RAFAL DC DO Ot Z23 ENCOUNTER FOR IMMUNIZATION 04/26/2016 RAFAL DC DO Ot Z79.84 ACID TANK LINER (CURRENT) USE OF ORAL HYPOGLYC 04/26/2016 RAFAL DC DO Ot Z85.46 PERSONAL HISTORY OF MALIGNANT NEOPLASM O 04/26/[address] [facility] RAFAL Sotelo Ot Z87.891 PERSONAL HISTORY OF NICOTINE DEPENDENCE 04/26/2016 [facility], RAFAL Sotelo Ot Z91.81 HISTORY OF FALLING 04/26/[address] [facility] RAFAL Sotelo Ot Z92.3 PERSONAL HISTORY OF IRRADIATION 04/26/2016 [facility], RAFAL Sotelo Ot Z95.1 PRESENCE OF AORTOCORONARY BYPASS GRAFT 04/26/2016 [facility], RAFAL Sotelo Ot Z95.5 PRESENCE OF CORONARY ANGIOPLASTY IMPLANT 04/27/2016 [facility], RAFAL Sotelo Ot D69.6 THROMBOCYTOPENIA, UNSPECIFIED 04/27/2016 [facility] Ot E11.9 TYPE 2 DIABETES MELLITUS WITHOUT COMPLIC 04/27/2016 [facility], RAFAL Sotelo Ot E78.00 PURE HYPERCHOLESTEROLEMIA, UNSPECIFIED 04/27/2016 [facility] Ot E78.5 HYPERLIPIDEMIA, UNSPECIFIED 04/27/2016 [facility] Ot G47.30 SLEEP APNEA, UNSPECIFIED 04/27/2016 [facility] Ot I10 ESSENTIAL (PRIMARY) HYPERTENSION 04/27/2016 [facility] Ot I25.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 04/27/2016 [facility] Ot I48.91 UNSPECIFIED ATRIAL FIBRILLATION 04/27/2016 [facility] Ot K29.80 DUODENITIS WITHOUT BLEEDING 04/27/2016 [facility] Ot N39.0 URINARY TRACT INFECTION, SITE NOT SPECIF 04/27/2016 [facility] Ot R50.9 FEVER, UNSPECIFIED 04/27/2016 [facility] Ot R53.1 WEAKNESS 04/27/2016 [facility] Ot R74.8 ABNORMAL LEVELS OF OTHER SERUM ENZYMES 04/27/2016 [facility] Ot T46.2X1A POISONING BY OTH ANTIDYSRHYTHMIC DRUGS, 04/27/2016 [facility] Ot Z23 ENCOUNTER FOR IMMUNIZATION 04/27/2016 [facility], RAFAL Sotelo Ot Z79.84 ACID TANK LINER (CURRENT) USE OF ORAL HYPOGLYC 04/27/2016 [facility] Ot Z85.46 PERSONAL HISTORY OF MALIGNANT NEOPLASM O 04/27/2016 DAO DO, RAFAL Sotelo Ot Z87.891 PERSONAL HISTORY OF NICOTINE DEPENDENCE 04/27/[address] [facility], RAFAL Sotelo Ot Z91.81 HISTORY OF FALLING 04/27/[address] [facility], RAFAL Sotelo Ot Z92.3 PERSONAL HISTORY OF IRRADIATION 04/27/[address] [facility], RAFAL Sotelo Ot Z95.1 PRESENCE OF AORTOCORONARY BYPASS GRAFT 04/27/[address] [facility], RAFAL Sotelo Ot Z95.5 PRESENCE OF CORONARY ANGIOPLASTY IMPLANT 04/27/2016 [facility] DO, RAFAL Sotelo Ot D69.6 THROMBOCYTOPENIA, UNSPECIFIED 04/27/[address] [facility], RAFAL Sotelo Ot E11.9 TYPE 2 DIABETES MELLITUS WITHOUT COMPLIC 04/27/2016 [facility] DO, RAFAL Sotelo Ot E78.00 PURE HYPERCHOLESTEROLEMIA, UNSPECIFIED 04/27/[address] [facility]OR[facility] Ot E78.5 HYPERLIPIDEMIA, UNSPECIFIED 04/27/[address] [facility] Ot G47.30 SLEEP APNEA, UNSPECIFIED 04/27/2016 [facility] Ot I10 ESSENTIAL (PRIMARY) HYPERTENSION 04/27/2016 [facility], RAFAL Sotelo Ot I25.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 04/27/2016 [facility] Ot I48.91 UNSPECIFIED ATRIAL FIBRILLATION 04/27/2016 [facility], RAFAL Sotelo Ot K29.80 DUODENITIS WITHOUT BLEEDING 04/27/[address] [facility] DORAFAL Ot N39.0 URINARY TRACT INFECTION, SITE NOT SPECIF 04/27/[address] [facility] RAFAL Ot R50.9 FEVER, UNSPECIFIED 04/27/[address] [facility] DORAFAL Ot R53.1 WEAKNESS 04/27/[address] [facility] DOR[facility] Ot R74.8 ABNORMAL LEVELS OF OTHER SERUM ENZYMES 04/27/[address] [facility] RAFAL Ot Z23 ENCOUNTER FOR IMMUNIZATION 04/27/[address] [facility] , RAFAL Sotelo Ot Z79.84 ACID TANK LINER (CURRENT) USE OF ORAL HYPOGLYC 04/27/[address] [facility] , RAFAL Sotelo Ot Z85.46 PERSONAL HISTORY OF MALIGNANT NEOPLASM O 04/27/[address] [facility] RAFAL Sotelo Ot Z87.891 PERSONAL HISTORY OF NICOTINE DEPENDENCE 04/27/2016 [facility], RAFAL Sotelo Ot Z91.81 HISTORY OF FALLING 04/27/2016 [facility] Ot Z92.3 PERSONAL HISTORY OF IRRADIATION 04/27/2016 [facility], RAFAL Sotelo Ot Z95.1 PRESENCE OF AORTOCORONARY BYPASS GRAFT 04/27/2016 [facility], RAFAL Sotelo Ot Z95.5 PRESENCE OF CORONARY ANGIOPLASTY IMPLANT 04/27/2016 [facility] Ot D69.6 THROMBOCYTOPENIA, UNSPECIFIED 04/27/2016 [facility] Ot E11.9 TYPE 2 DIABETES MELLITUS WITHOUT COMPLIC 04/27/2016 [facility], RAFAL Sotelo Ot E78.00 PURE HYPERCHOLESTEROLEMIA, UNSPECIFIED 04/27/2016 [facility] Ot E78.5 HYPERLIPIDEMIA, UNSPECIFIED 04/27/2016 [facility] Ot G47.30 SLEEP APNEA, UNSPECIFIED 04/27/2016 [facility] Ot I10 ESSENTIAL (PRIMARY) HYPERTENSION 04/27/2016 [facility] Ot I25.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 04/27/2016 [facility] Ot I48.91 UNSPECIFIED ATRIAL FIBRILLATION 04/27/2016 [facility] Ot K29.80 DUODENITIS WITHOUT BLEEDING 04/27/2016 [facility] Ot N39.0 URINARY TRACT INFECTION, SITE NOT SPECIF 04/27/2016 [facility] Ot R50.9 FEVER, UNSPECIFIED 04/27/2016 [facility] RAFAL Ot R53.1 WEAKNESS 04/27/2016 [facility] Ot R74.8 ABNORMAL LEVELS OF OTHER SERUM ENZYMES 04/27/2016 [facility] Ot Z23 ENCOUNTER FOR IMMUNIZATION 04/27/2016 [facility], RAFAL Sotelo Ot Z79.84 ACID TANK LINER (CURRENT) USE OF ORAL HYPOGLYC 04/27/2016 [facility] Ot Z85.46 PERSONAL HISTORY OF MALIGNANT NEOPLASM O 04/27/2016 [facility] Ot Z87.891 PERSONAL HISTORY OF NICOTINE DEPENDENCE 04/27/2016 [facility] Ot Z91.81 HISTORY OF FALLING 04/27/2016 [facility] Ot Z92.3 PERSONAL HISTORY OF IRRADIATION 04/27/2016 RAFAL DC DO Ot Z95.1 PRESENCE OF AORTOCORONARY BYPASS GRAFT 04/27/2016 RAFAL DC DO Ot Z95.5 PRESENCE OF CORONARY ANGIOPLASTY IMPLANT 04/29/2016 RYAN LANDON MD Ot D69.6 THROMBOCYTOPENIA, UNSPECIFIED 04/29/2016 RYAN LANDON MD Ot E11.9 TYPE 2 DIABETES MELLITUS WITHOUT COMPLIC 04/29/2016 RYAN LANDON MD Ot E78.00 PURE HYPERCHOLESTEROLEMIA, UNSPECIFIED 04/29/2016 RYAN LANDON MD Ot E78.5 HYPERLIPIDEMIA, UNSPECIFIED 04/29/2016 RYAN LANDON MD Ot G47.30 SLEEP APNEA, UNSPECIFIED 04/29/2016 RYAN LANDON MD Ot I1 0 ESSENTIAL (PRIMARY) HYPERTENSION 04/29/2016 RYAN LANDON MD Ot I25.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 04/29/2016 RYAN LANDON MD [...] DRUGS, 04/29/2016 RYAN LANDON MD Ot Z79.84 ACID TANK LINER (CURRENT) USE OF ORAL HYPOGLYC 04/29/2016 RYAN [...] Ot E78.5 HYPERLIPIDEMIA, UNSPECIFIED 05/02/2016 RYAN LANDON MD, Ot G47.30 SLEEP APNEA, UNSPECIFIED 05/02/2016 RYAN LANDON MD Ot I1 0 ESSENTIAL (PRIMARY) HYPERTENSION 05/02/2016 RYAN LANDON MD Ot I25.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 05/02/2016 RYAN LANDON MD [...] OF OTHER SERUM ENZYMES 05/02/2016 RYAN LANDON MD Ot T46.2X1D POISONING BY OTH ANTIDYSRHYTHMIC DRUGS, 05/02/2016 RYAN LANDON MD Ot Z79.84 ACID TANK LINER (CURRENT) USE OF ORAL HYPOGLYC 05/02/2016 RYAN [...] ANGIOPLASTY IMPLANT 05/06/2016 TIN SOTO DO Ot 414. 00 CORON ATHEROSCLER NOS TYPE VESSEL, NATIV 05/06/2016 BRITTANY SUTHERLAND TIN Burkett Ot 786. 09 RESPIRATORY ABNORM NEC 05/06/2016 CHAPIS WOLF, ANDREW Sotelo Ot N20.0 CALCULUS OF KIDNEY 05/06/2016 CHAPIS WOLF, ANDREW Sotelo Ot Z09 ENCNTR FOR F/U EXAM AFT TRTMT FOR COND O 05/06/2016 DEMAR WOLF, ZAHNNA Suazo Ot R07. 9 CHEST PAIN, UNSPECIFIED 05/28/2016 JAMIL MONTERO APRN Ot G47.33 OBSTRUCTIVE SLEEP APNEA (ADULT) (PEDIATR 05/30/2016 JAMIL MONTERO APRN Ot G47.33 OBSTRUCTIVE SLEEP APNEA (ADULT) (PEDIATR 05/30/2016 JAMIL MONTERO APRN Ot G47.33 OBSTRUCTIVE SLEEP APNEA (ADULT) (PEDIATR 07/14/2016 Ot 592.0 CALC ULUS OF KIDNEY 07/14/2016 Ot 592.1 CALC ULUS OF URETER 07/14/2016 Ot 592.1 CALC ULUS OF URETER 07/14/2016 Ot V72.63 PRE -PROCEDURAL LABORATORY EXAMINATION 07/14/2016 Ot V72.81 [id number] CARDIOVASCULAR 07/14/2016 Ot V72.83 EXA M PRE- OPERATIVE NEC 07/14/2016 Ot V74.8 SCRE EN-BACTERIAL DIS NEC 07/14/2016 Ot 592.1 CALC ULUS OF URETER 07/14/2016 Ot V67.09 DARIEL KALYAN FOLLOW- UP, OTHER SURGERY 07/14/2016 Ot 786.2 COUGH 07/14/2016 Ot 785.1 PALP ITATIONS 07/14/2016 JAVIER BELLO DO Ot V72. 84 EXAM PRE-OPERATIVE NOS 07/14/2016 RYAN LANDON MD Ot 268.9 VITAMIN D DEFICIENCY NOS 07/14/2016 RYAN LANDON MD Ot 51 5 POSTINFLAM PULM FIBROSIS 07/14/2016 RYAN LANDON MD Ot 733.90 BONE CARTILAGE DIS NOS 07/14/2016 RYAN LANDON MD Ot 786.52 PAINFUL RESPIRATION 07/14/2016 RYAN LANDON MD Ot V45.82 PERCUTANEOUS TRANSLUM CORON ANGIOPLASTY 07/14/2016 Ot 185 MALIGN NEOPL PROSTATE 07/14/2016 Ot 592.0 CALC ULUS OF KIDNEY 07/14/2016 ANDREW NATION MD Ot 185 MALIGN NEOPL PROSTATE 07/14/2016 ANDREW NATION MD Ot V72.8 1 [id number] CARDIOVASCULAR 07/14/2016 ANDREW NATION MD Ot V74.8 SCREEN-BACTERIAL DIS NEC 07/14/2016 TIN SOTO DO Ot 414. 00 CORON ATHEROSCLER NOS TYPE VESSEL, NATIV 07/14/2016 TIN SOTO DO Ot 786. 09 RESPIRATORY ABNORM NEC 07/14/2016 CHETNA WOLF, PERNELL Fermin Ot C61 MALIGNANT NEOPLASM OF [place] 07/14/2016 CHAPIS WOLF, ANDREW Sotelo Ot N20.0 CALCULUS OF KIDNEY 07/14/2016 CHAPIS WOLF, ANDREW Sotelo Ot Z09 ENCNTR FOR F/U EXAM AFT TRTMT FOR COND O 07/14/2016 DEMAR WOLF, ZHANNA Suazo Ot R07. 9 CHEST PAIN, UNSPECIFIED 07/14/2016 BARBI WOLF, RYAN Sotelo Ot M54.5 LOW BACK PAIN 07/14/2016 RYAN LANDON MD Ot R53.1 WEAKNESS 07/18/2016 RYAN LANDON MD Ot M54.5 LOW BACK PAIN 07/18/2016 RYAN LANDON MD Ot R53.1 WEAKNESS 02/22/2017 Ot 786.2 COUGH 02/22/2017 Ot 785.1 PALP ITATIONS 02/22/2017 JAVIER BELLO DO Ot V72. 84 EXAM PRE-OPERATIVE NOS 02/22/2017 RYAN LANDON MD Ot 268.9 VITAMIN D DEFICIENCY NOS 02/22/2017 RYAN LANDON MD Ot 51 5 POSTINFLAM PULM FIBROSIS 02/22/2017 RYAN LANDON MD Ot 733.90 BONE CARTILAGE DIS NOS 02/22/2017 RYAN LANDON MD Ot 786.52 PAINFUL RESPIRATION 02/22/2017 RYAN LANDON MD Ot V45.82 PERCUTANEOUS TRANSLUM CORON ANGIOPLASTY 02/22/2017 Ot 185 MALIGN NEOPL PROSTATE 02/22/2017 Ot 592.0 CALC ULUS OF KIDNEY 02/22/2017 ANDREW NATION MD Ot 185 MALIGN NEOPL PROSTATE 02/22/2017 ANDRWE NATION MD Ot V72.8 1 NQMR-RHF-LEHKLICRA CARDIOVASCULAR 02/22/2017 CHAPIS WOLF, ANDREW Sotelo Ot V74.8 SCREEN-BACTERIAL DIS NEC 02/22/2017 TIN SOTO DO Ot 414. 00 CORON ATHEROSCLER NOS TYPE VESSEL, NATIV 02/22/2017 TIN SOTO DO Ot 786. 09 RESPIRATORY ABNORM NEC 02/22/2017 CHETNA WOLF, PERNELL Fermin Ot C61 MALIGNANT NEOPLASM OF PROSTATE 02/22/2017 CHAPIS WOLF, ANDREW Sotelo Ot N20.0 CALCULUS OF KIDNEY 02/22/2017 CHAPIS WOLF, ANDREW Sotelo Ot Z09 ENCNTR FOR F/U EXAM AFT TRTMT FOR COND O 02/22/2017 DEMAR WOLF, ZHANNA Suazo Ot R07. 9 CHEST PAIN, UNSPECIFIED 02/28/2017 Ot 785.1 PALP ITATIONS 02/28/2017 CHETNA WOLF, PERNELL Fermin Ot C61 MALIGNANT NEOPLASM OF PROSTATE 03/01/2017 SAMUEL WOLF FACC, ALI FACP CCDS Ot E66.09 OTHER OBESITY DUE TO EXCESS CALORIES 03/01/2017 SAMUEL WOLF FACC, ALI FACP CCDS Ot E78.4 OTHER HYPERLIPIDEMIA 03/01/2017 SAMUEL WOLF FACC, ALI FACP CCDS Ot I10 ESSENTIAL (PRIMARY) HYPERTENSION 03/01/2017 SAMUEL WOLF FACC, ALI FACP CCDS Ot I48.0 PAROXYSMAL ATRIAL FIBRILLATION 03/01/2017 SAMUEL WOLF FACC, ALI FACP CCDS Ot 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 03/01/2017 SAMUEL WOLF FACC, ALI FACP CCDS Ot R06.09 OTHER FORMS OF DYSPNEA 03/01/2017 SAMUEL WOLF FACC, ALI FACP CCDS Ot R53.83 OTHER FATIGUE 03/08/2017 Ot 786.2 COUGH 03/08/2017 Ot 785.1 PALP ITATIONS 03/08/2017 JAVIER BELLO DO Ot V72. 84 EXAM PRE-OPERATIVE NOS 03/08/2017 RYAN LANDON MD Ot 268.9 VITAMIN D DEFICIENCY NOS 03/08/2017 RYAN LANDON MD Ot 51 5 POSTINFLAM PULM FIBROSIS 03/08/2017 RYAN LANDON MD Ot 733.90 BONE CARTILAGE DIS NOS 03/08/2017 RYAN LANDON MD Ot 786.52 PAINFUL RESPIRATION 03/08/2017 RYAN LANDON MD Ot V45.82 PERCUTANEOUS TRANSLUM CORON ANGIOPLASTY 03/08/2017 Ot 185 MALIGN NEOPL PROSTATE 03/08/2017 Ot 592.0 CALC ULUS OF KIDNEY 03/08/2017 ANDREW NATION MD Ot 185 MALIGN NEOPL PROSTATE 03/08/2017 ANDREW NATION MD, Ot V72.8 1 [id number]-ARB-CGSUUYPME CARDIOVASCULAR 03/08/2017 ANDREW NATION MD Ot V74.8 SCREEN-BACTERIAL DIS NEC 03/08/2017 TIN SOTO DO Ot 414. 00 CORON ATHEROSCLER NOS TYPE VESSEL, NATIV 03/08/2017 TIN SOTO DO Ot 786. 09 RESPIRATORY ABNORM NEC 03/08/2017 CHETNA WOLF, PERNELL Fermin Ot C61 MALIGNANT NEOPLASM OF PROSTATE 03/08/2017 ANDREW NATION MD Ot N20.0 CALCULUS OF KIDNEY 03/08/2017 ANDREW NATION MD Ot Z09 ENCNTR FOR F/U EXAM AFT TRTMT FOR COND O 03/08/2017 DEMAR WOLF, ZHANNA Suazo Ot R07. 9 CHEST PAIN, UNSPECIFIED 03/08/2017 SAMUEL WOLF FACC, [...] Ot R53.83 OTHER FATIGUE 03/18/2017 Ot 785.1 PALP ITATIONS 03/18/2017 CHETNA WOLF, PERNELL Fermin Ot C61 MALIGNANT NEOPLASM OF PROSTATE 03/19/2017 RYAN LANDON MD Ot E11.9 TYPE 2 DIABETES MELLITUS WITHOUT COMPLIC 03/19/2017 RYAN LANDON MD Ot E78.5 HYPERLIPIDEMIA, UNSPECIFIED 03/19/2017 RYAN LANDON MD Ot I1 0 ESSENTIAL (PRIMARY) HYPERTENSION 03/19/2017 RYAN LANDON MD Ot I25.10 ATHSCL HEART DISEASE OF [place] CORONARY 03/19/2017 RYAN LANDON MD Ot I48.2 CHRONIC ATRIAL FIBRILLATION 03/19/2017 RYAN LANDON MD Ot I51.7 CARDIOMEGALY 03/19/2017 RYAN LANDON MD Ot K21.9 GASTRO-ESOPHAGEAL REFLUX DISEASE WITHOUT 03/19/2017 RYAN LANDON MD Ot N40.0 BENIGN PROSTATIC HYPERPLASIA WITHOUT LOW 03/19/2017 RYAN LANDON MD Ot R07.9 CHEST PAIN, UNSPECIFIED 03/19/2017 RYAN LANDON MD, Ot Z79.01 [facility]CI (CURRENT) USE OF ANTICOAGULANT 03/19/2017 RYNA LANDON MD Ot Z79.899 OTHER ACID TANK LINER (CURRENT) DRUG THERAPY 03/19/2017 RYAN LANDON MD Ot Z85.46 PERSONAL HISTORY OF MALIGNANT NEOPLASM O 03/19/2017 RYAN LANDON MD Ot Z86.73 PRSNL HX OF TIA [...] Ot E78.5 HYPERLIPIDEMIA, UNSPECIFIED 03/19/2017 RYAN LANDON MD, Ot I1 0 ESSENTIAL (PRIMARY) HYPERTENSION 03/19/2017 RYAN LANDON MD Ot I25.10 ATHSCL HEART DISEASE OF [place] CORONARY 03/19/2017 RYAN LANDON MD Ot I48.2 CHRONIC ATRIAL FIBRILLATION 03/19/2017 RYAN LANDON MD Ot I51.7 CARDIOMEGALY 03/19/2017 RYAN LANDON MD, Ot K21.9 GASTRO-ESOPHAGEAL REFLUX DISEASE WITHOUT 03/19/2017 RYAN LANDON MD, Ot N40.0 BENIGN PROSTATIC HYPERPLASIA WITHOUT LOW 03/19/2017 RYAN ALNDON MD Ot R07.9 CHEST PAIN, UNSPECIFIED 03/19/2017 RYAN LANDON MD Ot Z79.01 [facility] (CURRENT) USE OF ANTICOAGULANT 03/19/2017 RYAN LANDON MD Ot Z79.899 OTHER ACID TANK LINER (CURRENT) DRUG THERAPY 03/19/2017 RYAN LANDON MD Ot Z85.46 PERSONAL HISTORY OF MALIGNANT NEOPLASM O 03/19/2017 RYAN LANDON MD Ot Z86.73 PRSNL HX OF TIA (TIA), AND CEREB INFRC W 03/19/2017 RYAN LANDON MD Ot Z87.891 PERSONAL HISTORY OF NICOTINE DEPENDENCE 03/19/2017 RYAN LANDON MD Ot Z95.1 PRESENCE OF AORTOCORONARY BYPASS GRAFT 03/19/2017 RYAN LANDON MD Ot Z95.5 PRESENCE OF CORONARY ANGIOPLASTY IMPLANT 03/22/2017 SAMUEL WOLF FACC, MICHAEL FACP CCDS Ot E66.09 OTHER OBESITY DUE TO EXCESS CALORIES 03/22/2017 SAMUEL WOLF FACC ALI FACP CCDS Ot E78.4 OTHER HYPERLIPIDEMIA 03/22/2017 SAMUEL WOLF FACC, ALI FACP CCDS Ot I10 ESSENTIAL (PRIMARY) HYPERTENSION 03/22/2017 SAMUEL WOLF FACC, ALI FACP CCDS Ot I48.0 PAROXYSMAL ATRIAL FIBRILLATION 03/22/2017 SAMUEL WOLF FACC ALI FACP CCDS Ot 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 03/22/2017 SAMUEL WOLF FACC, ALI FACP CCDS Ot R06.09 OTHER FORMS OF DYSPNEA 03/22/2017 SAMUEL WOLF FACC, ALI FACP CCDS Ot R53.83 OTHER FATIGUE 03/28/2017 SAMUEL WOLF FACC, ALI FACP CCDS [...] CCDS Ot R53.83 OTHER FATIGUE 03/30/2017 SAMUEL WOLF FACC, ALI FACP CCDS [...] DUE TO EXCESS CALORIES 04/05/2017 SAMUEL WOLF FACC, ALI FACP CCDS Ot E78.4 OTHER HYPERLIPIDEMIA 04/05/2017 SAMUEL WOLF FACC, ALI FACP CCDS Ot I10 ESSENTIAL (PRIMARY) HYPERTENSION 04/05/2017 SAMUEL WOLF FACC, ALI FACP CCDS Ot I48.0 PAROXYSMAL ATRIAL FIBRILLATION 04/05/2017 SAMUEL WOLF FACC, ALI FACP CCDS Ot 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 04/05/2017 SAMUEL WOLF FACC, ALI FACP CCDS Ot R06.09 OTHER FORMS OF DYSPNEA 04/05/2017 SAMUEL WOLF FACC, ALI FACP CCDS Ot R53.83 OTHER FATIGUE 05/12/2017 Kwadwo CARRASCO MD Ot E11 .9 TYPE 2 DIABETES MELLITUS WITHOUT COMPLIC 05/12/2017 Kwadwo CARRASCO MD Ot E66 .8 OTHER OBESITY 05/12/2017 Kwadwo CARRASCO MD Ot E78 .5 HYPERLIPIDEMIA, UNSPECIFIED 05/12/2017 Kwadwo CARRASCO MD Ot G47.33 OBSTRUCTIVE SLEEP APNEA (ADULT) (PEDIATR 05/12/2017 Kwadwo CARRASCO MD Ot I10 ESSENTIAL (PRIMARY) HYPERTENSION 05/12/2017 Kwadwo CARRASCO MD Ot I25.10 ATHSCL HEART DISEASE OF [place] CORONARY 05/12/2017 Kwadwo CARRASCO MD Ot I44.60 UNSPECIFIED FASCICULAR BLOCK 05/12/2017 Kwadwo CARRASCO MD Ot I48 .0 PAROXYSMAL ATRIAL FIBRILLATION 05/12/2017 Kwadwo CARRASCO MD Ot K21 .9 GASTRO-ESOPHAGEAL REFLUX DISEASE WITHOUT 05/12/2017 Kwadwo CARRASCO MD Ot R00 .0 TACHYCARDIA, UNSPECIFIED 05/12/2017 Kwadwo CARRASCO MD, Ot R00 .1 BRADYCARDIA, UNSPECIFIED 05/12/2017 Kwadwo CARRASCO MD Ot R53.83 OTHER FATIGUE 05/12/2017 Kwadwo CARRASCO MD Ot Z68.34 BODY MASS INDEX (BMI) 34.0-34.9, ADULT 05/12/2017 Kwadwo CARRASCO MD Ot Z79.01 [facility] (CURRENT) USE OF ANTICOAGULANT 05/12/2017 Kwadwo CARRASCO MD Ot Z79.899 OTHER [facility] (CURRENT) DRUG THERAPY 05/12/2017 Kwadwo CARRASCO MD Ot Z87.891 PERSONAL HISTORY OF NICOTINE DEPENDENCE 05/12/2017 Kwadwo CARRASCO MD Ot Z95 .1 PRESENCE OF AORTOCORONARY BYPASS GRAFT 05/12/2017 Kwadwo CARRASCO MD Ot 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 05/25/2017 Kwadwo CARRASCO MD Ot E11 .9 TYPE 2 DIABETES MELLITUS WITHOUT COMPLIC 05/25/2017 Kwadwo CARRASCO MD Ot E66 .8 OTHER OBESITY 05/25/2017 Kwadwo CARRASCO MD Ot E78 .5 HYPERLIPIDEMIA, UNSPECIFIED 05/25/2017 Kwadwo CARRASCO MD Ot G47.33 OBSTRUCTIVE SLEEP APNEA (ADULT) (PEDIATR 05/25/2017 Kwadwo CARRASCO MD Ot I10 ESSENTIAL (PRIMARY) HYPERTENSION 05/25/2017 Kwadwo CARRASCO MD Ot I25.10 ATHSCL HEART DISEASE OF [place] CORONARY 05/25/2017 Kwadwo CARRASCO MD Ot I44.60 UNSPECIFIED FASCICULAR BLOCK 05/25/2017 Kwadwo CARRASCO MD Ot I48 .0 PAROXYSMAL ATRIAL FIBRILLATION 05/25/2017 Kwadwo CARRASCO MD Ot K21 .9 GASTRO-ESOPHAGEAL REFLUX DISEASE WITHOUT 05/25/2017 Kwadwo CARRASCO MD Ot R00 .0 TACHYCARDIA, UNSPECIFIED 05/25/2017 Kwadwo CARRASCO MD Ot R00 .1 BRADYCARDIA, UNSPECIFIED 05/25/2017 Kwadwo CARRASCO MD Ot R53.83 OTHER FATIGUE 05/25/2017 Kwadwo CARRASCO MD Ot Z68.34 BODY MASS INDEX (BMI) 34.0-34.9, ADULT 05/25/2017 Kwadwo CARRASCO MD Ot Z79.01 [facility]CI (CURRENT) USE OF ANTICOAGULANT 05/25/2017 Kwadwo CARRASCO MD Ot Z79.899 OTHER [facility] (CURRENT) DRUG THERAPY 05/25/2017 Kwadwo CARRASCO MD Ot Z87.891 PERSONAL HISTORY OF NICOTINE DEPENDENCE 05/25/2017 Kwadwo CARRASCO MD Ot Z95 .1 PRESENCE OF AORTOCORONARY BYPASS GRAFT 05/25/2017 Kwadwo CARRASCO MD Ot 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 06/05/2017 Kwadwo CARRASCO MD Ot E11 .9 TYPE 2 DIABETES MELLITUS WITHOUT COMPLIC 06/05/2017 Kwadwo CARRASCO MD Ot E66 .8 OTHER OBESITY 06/05/2017 Kwadwo CARRASCO MD Ot E78 .5 HYPERLIPIDEMIA, UNSPECIFIED 06/05/2017 Kwadwo CARRASCO MD Ot G47.33 OBSTRUCTIVE SLEEP APNEA (ADULT) (PEDIATR 06/05/2017 Kwadwo CARRASCO MD Ot I10 ESSENTIAL (PRIMARY) HYPERTENSION 06/05/2017 Kwadwo CARRASCO MD Ot I25.10 ATHSCL HEART DISEASE OF [place] CORONARY 06/05/2017 Kawdwo CARRASCO MD Ot I44.60 UNSPECIFIED FASCICULAR BLOCK 06/05/2017 Kwadwo CARRASCO MD Ot I48 .0 PAROXYSMAL ATRIAL FIBRILLATION 06/05/2017 Kwadwo CARRASCO MD Ot K21 .9 GASTRO-ESOPHAGEAL REFLUX DISEASE WITHOUT 06/05/2017 Kwadwo CARRASCO MD Ot R00 .0 TACHYCARDIA, UNSPECIFIED 06/05/2017 Kwadwo CARRASCO MD, Ot R00 .1 BRADYCARDIA, UNSPECIFIED 06/05/2017 Kwadwo CARRASCO MD Ot R53.83 OTHER FATIGUE 06/05/2017 Kwadwo CARRASCO MD Ot Z68.34 BODY MASS INDEX (BMI) 34.0-34.9, ADULT 06/05/2017 Kwadwo CARRASCO MD, Ot Z79.01 [facility] (CURRENT) USE OF ANTICOAGULANT 06/05/2017 Kwadwo CARRASCO MD, Ot Z79.899 OTHER [facility] (CURRENT) DRUG THERAPY 06/05/2017 Kwadwo CARRASCO MD, Ot Z87.891 PERSONAL HISTORY OF NICOTINE DEPENDENCE 06/05/2017 Kwadwo CARRASCO MD Ot Z95 .1 PRESENCE OF AORTOCORONARY BYPASS GRAFT 06/05/2017 Kwadwo CARRASCO MD, Ot 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 06/12/2017 Ot 785.1 PALP ITATIONS 06/12/2017 CHETNA WOLF, PERNELL Fermin Ot C61 MALIGNANT NEOPLASM OF PROSTATE 06/13/2017 Kwadwo CARRASCO MD Ot E11 .9 TYPE 2 DIABETES MELLITUS WITHOUT COMPLIC 06/13/2017 Kwadwo CARRASCO MD Ot E66 .9 OBESITY, UNSPECIFIED 06/13/2017 Kwadwo CARRASCO MD Ot 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 06/13/2017 Kwadwo CARRASCO MD, Ot E78 .5 HYPERLIPIDEMIA, UNSPECIFIED 06/13/2017 Kwadwo CARRASCO MD, Ot G47.33 OBSTRUCTIVE SLEEP APNEA (ADULT) (PEDIATR 06/13/2017 Kwadwo CARRASCO MD Ot I10 ESSENTIAL (PRIMARY) HYPERTENSION 06/13/2017 Kwadwo CARRASCO MD, Ot I25.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 06/13/2017 Kwadwo CARRASCO MD Ot I46 .9 CARDIAC ARREST, CAUSE UNSPECIFIED 06/13/2017 Kwadwo CARRASCO MD Ot I48 .0 PAROXYSMAL ATRIAL FIBRILLATION 06/13/2017 Kwadwo CARRASCO MD Ot I49 .5 SICK SINUS SYNDROME 06/13/2017 Kwadwo CARRASCO MD Ot K21 .9 GASTRO-ESOPHAGEAL REFLUX DISEASE WITHOUT 06/13/2017 Kwadwo CARRASCO MD Ot M25.552 PAIN IN LEFT HIP 06/13/2017 Kwadwo CARRASCO MD Ot Z68.35 BODY MASS INDEX (BMI) 35.0-35.9, ADULT 06/13/2017 Kwadwo CARRASCO MD Ot Z95 .1 PRESENCE OF AORTOCORONARY BYPASS GRAFT 06/15/2017 Kwadwo CARRASCO MD Ot E11 .9 TYPE 2 DIABETES MELLITUS WITHOUT COMPLIC 06/15/2017 Kwadwo CARRASCO MD Ot E66 .9 OBESITY, UNSPECIFIED 06/15/2017 Kwadwo CARRASCO MD Ot 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 06/15/2017 Kwadwo CARRASCO MD Ot E78 .5 HYPERLIPIDEMIA, UNSPECIFIED 06/15/2017 Kwadwo CARRASCO MD Ot G47.33 OBSTRUCTIVE SLEEP APNEA (ADULT) (PEDIATR 06/15/2017 Kwadwo CARRASCO MD Ot I10 ESSENTIAL (PRIMARY) HYPERTENSION 06/15/2017 Kwadwo CARRASCO MD Ot I25.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 06/15/2017 Kwadwo CARRASCO MD Ot I46 .9 CARDIAC ARREST, CAUSE UNSPECIFIED 06/15/2017 Kwadwo CARRASCO MD Ot I48 .0 PAROXYSMAL ATRIAL FIBRILLATION 06/15/2017 Kwadwo CARRASCO MD Ot I49 .5 SICK SINUS SYNDROME 06/15/2017 Kwadwo CARRASCO MD Ot K21 .9 GASTRO-ESOPHAGEAL REFLUX DISEASE WITHOUT 06/15/2017 Kwadwo CARRASCO MD Ot M25.552 PAIN IN LEFT HIP 06/15/2017 Kwadwo CARRASCO MD Ot Z68.35 BODY MASS INDEX (BMI) 35.0-35.9, ADULT 06/15/2017 Kwadwo CARRASCO MD Ot Z95 .1 PRESENCE OF AORTOCORONARY BYPASS GRAFT 06/21/2017 Kwadwo CARRASCO MD Ot E11 .9 TYPE 2 DIABETES MELLITUS WITHOUT COMPLIC 06/21/2017 Kwadwo CARRASCO MD Ot E66 .9 OBESITY, UNSPECIFIED 06/21/2017 Kwadwo CARRASCO MD Ot 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 06/21/2017 Kwadwo CARRASCO MD, Ot E78 .5 HYPERLIPIDEMIA, UNSPECIFIED 06/21/2017 Kwadwo CARRASCO MD, Ot G47.33 OBSTRUCTIVE SLEEP APNEA (ADULT) (PEDIATR 06/21/2017 Kwadwo CARRASCO MD, Ot I10 ESSENTIAL (PRIMARY) HYPERTENSION 06/21/2017 Kwadwo CARRASCO MD Ot I25.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 06/21/2017 Kwadwo CARRASCO MD Ot I46 .9 CARDIAC ARREST, CAUSE UNSPECIFIED 06/21/2017 Kwadwo CARRASCO MD Ot I48 .0 PAROXYSMAL ATRIAL FIBRILLATION 06/21/2017 Kwadwo CARRASCO MD Ot I49 .5 SICK SINUS SYNDROME 06/21/2017 Kwadwo CARRASCO MD Ot K21 .9 GASTRO-ESOPHAGEAL REFLUX DISEASE WITHOUT 06/21/2017 Kwadwo CARRASCO MD Ot M25.552 PAIN IN LEFT HIP 06/21/2017 Kwadwo CARRASCO MD Ot Z68.35 BODY MASS INDEX (BMI) 35.0-35.9, ADULT 06/21/2017 Kwadwo CARRASCO MD Ot Z95 .1 PRESENCE OF AORTOCORONARY BYPASS GRAFT 06/22/2017 Kwadwo CARRASCO MD Ot E11 .9 TYPE 2 DIABETES MELLITUS WITHOUT COMPLIC 06/22/2017 Kwadwo CARRASCO MD Ot E66 .8 OTHER OBESITY 06/22/2017 Kwadwo CARRASCO MD Ot E78 .5 HYPERLIPIDEMIA, UNSPECIFIED 06/22/2017 Kwadwo CARRASCO MD Ot G47.33 OBSTRUCTIVE SLEEP APNEA (ADULT) (PEDIATR 06/22/2017 Kwadwo CARRASCO MD Ot I10 ESSENTIAL (PRIMARY) HYPERTENSION 06/22/2017 Kwadwo CARRASCO MD Ot I25.10 ATHSCL HEART DISEASE OF [place] CORONARY 06/22/2017 Kwadwo CARRASCO MD Ot I44.60 UNSPECIFIED FASCICULAR BLOCK 06/22/2017 Kwadwo CARRASCO MD Ot I48 .0 PAROXYSMAL ATRIAL FIBRILLATION 06/22/2017 Kwadwo CARRASCO MD Ot K21 .9 GASTRO-ESOPHAGEAL REFLUX DISEASE WITHOUT 06/22/2017 Kwadwo CARRASCO MD Ot R00 .0 TACHYCARDIA, UNSPECIFIED 06/22/2017 Kwadwo CARRASCO MD Ot R00 .1 BRADYCARDIA, UNSPECIFIED 06/22/2017 Kwadwo CARRASCO MD Ot R53.83 OTHER FATIGUE 06/22/2017 Kwadwo CARRASCO MD Ot Z68.34 BODY MASS INDEX (BMI) 34.0-34.9, ADULT 06/22/2017 Kwadwo CARRASCO MD Ot Z79.01 [facility] (CURRENT) USE OF ANTICOAGULANT 06/22/2017 Kwadwo CARRASCO MD Ot Z79.899 OTHER ACID TANK LINER (CURRENT) DRUG THERAPY 06/22/2017 Kwadwo CARRASCO MD Ot Z87.891 PERSONAL HISTORY OF NICOTINE DEPENDENCE 06/22/2017 Kwadwo CARRASCO MD Ot Z95 .1 PRESENCE OF AORTOCORONARY BYPASS GRAFT 06/22/2017 Kwadwo CARRASCO MD Ot 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 06/28/2017 Kwadwo CARRASCO MD Ot E11 .9 TYPE 2 DIABETES MELLITUS WITHOUT COMPLIC 06/28/2017 Kwadwo CARRASCO MD Ot E66 .8 OTHER OBESITY 06/28/2017 Kwadwo CARRASCO MD Ot E78 .5 HYPERLIPIDEMIA, UNSPECIFIED 06/28/2017 Kwadwo CARRASCO MD Ot G47.33 OBSTRUCTIVE SLEEP APNEA (ADULT) (PEDIATR 06/28/2017 Kwadwo CARRASCO MD Ot I10 ESSENTIAL (PRIMARY) HYPERTENSION 06/28/2017 Kwadwo CARRASCO MD, Ot I25.10 ATHSCL HEART DISEASE OF [place] CORONARY 06/28/2017 Kwadwo CARRASCO MD Ot I44.60 UNSPECIFIED FASCICULAR BLOCK 06/28/2017 Kwadwo CARRASCO MD, Ot I48 .0 PAROXYSMAL ATRIAL FIBRILLATION 06/28/2017 Kwadwo CARRASCO MD Ot K21 .9 GASTRO-ESOPHAGEAL REFLUX DISEASE WITHOUT 06/28/2017 Kwadwo CARRASCO MD Ot R00 .0 TACHYCARDIA, UNSPECIFIED 06/28/2017 Kwadwo CARRASCO MD, Ot R00 .1 BRADYCARDIA, UNSPECIFIED 06/28/2017 Kwadwo CARRASCO MD Ot R53.83 OTHER FATIGUE 06/28/2017 Kwadwo CARRASCO MD Ot Z68.34 BODY MASS INDEX (BMI) 34.0-34.9, ADULT 06/28/2017 Kwadwo CARRASCO MD Ot Z79.01 ACID TANK LINER (CURRENT) USE OF ANTICOAGULANT 06/28/2017 Kwadwo CARRASCO MD Ot Z79.899 OTHER ACID TANK LINER (CURRENT) DRUG THERAPY 06/28/2017 Kwadwo CARRASCO MD, Ot Z87.891 PERSONAL HISTORY OF NICOTINE DEPENDENCE 06/28/2017 Kwadwo CARRASCO MD, Ot Z95 .1 PRESENCE OF AORTOCORONARY BYPASS GRAFT 06/28/2017 Kwadwo CARRASCO MD Ot 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 07/13/2017 RYAN LANDON MD Ot A41.4 SEPSIS DUE TO ANAEROBES 07/13/2017 RYAN LANDON MD Ot B96.4 PROTEUS (MIRABILIS) (MORGANII) CAUSING D 07/13/2017 RYAN LANDON MD Ot E11.9 TYPE 2 DIABETES MELLITUS WITHOUT COMPLIC 07/13/2017 RYAN LANDON MD Ot E78.00 PURE HYPERCHOLESTEROLEMIA, UNSPECIFIED 07/13/2017 RYAN LANDON MD Ot E83.42 HYPOMAGNESEMIA 07/13/2017 RYAN LANDON MD Ot E87.70 FLUID OVERLOAD, UNSPECIFIED 07/13/2017 RYAN LANDON MD Ot G47.30 SLEEP APNEA, UNSPECIFIED 07/13/2017 RYAN LANDON MD Ot H91.90 UNSPECIFIED HEARING LOSS, UNSPECIFIED EA 07/13/2017 RYAN LANDON MD Ot I1 0 ESSENTIAL (PRIMARY) HYPERTENSION 07/13/2017 RYAN LANDON MD Ot I25.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 07/13/2017 RYAN LANDON MD Ot I34.0 NONRHEUMATIC MITRAL (VALVE) INSUFFICIENC 07/13/2017 RYAN LANDON MD Ot I45.10 UNSPECIFIED RIGHT BUNDLE-BRANCH BLOCK 07/13/2017 RYAN LANDON MD Ot I48.91 UNSPECIFIED ATRIAL FIBRILLATION 07/13/2017 RYAN LANDON MD Ot K21.9 GASTRO-ESOPHAGEAL REFLUX DISEASE WITHOUT 07/13/2017 RYAN LANDON MD Ot M19.91 PRIMARY OSTEOARTHRITIS, UNSPECIFIED SITE 07/13/2017 RYAN LANDON MD Ot N39.0 URINARY TRACT INFECTION, SITE NOT SPECIF 07/13/2017 RYAN LANDON MD Ot N40.0 BENIGN PROSTATIC HYPERPLASIA WITHOUT LOW 07/13/2017 RYAN LANDON MD Ot R07.9 CHEST PAIN, UNSPECIFIED 07/13/2017 RYAN LANDON MD Ot Z79.84 ACID TANK LINER (CURRENT) USE OF ORAL HYPOGLYC 07/13/2017 RYAN LANDON MD Ot Z85.46 PERSONAL HISTORY OF MALIGNANT NEOPLASM O 07/13/2017 RYAN LANDON MD Ot Z86.010 PERSONAL HISTORY OF COLONIC POLYPS 07/13/2017 RYAN LANDON MD Ot Z86.19 PERSONAL HISTORY OF OTHER INFECTIOUS AND 07/13/2017 RYAN LANDON MD Ot Z86.73 PRSNL HX OF TIA (TIA), AND CEREB INFRC W 07/13/2017 RYAN LANDON MD Ot Z87.01 PERSONAL HISTORY OF PNEUMONIA (RECURRENT 07/13/2017 RYAN LANDON MD Ot Z87.442 PERSONAL HISTORY OF URINARY CALCULI 07/13/2017 RYAN LANDON MD Ot Z87.891 PERSONAL HISTORY OF NICOTINE DEPENDENCE 07/13/2017 RYAN LANDON MD Ot Z92.3 PERSONAL HISTORY OF IRRADIATION 07/13/2017 RYAN LANDON MD Ot Z95.0 PRESENCE OF CARDIAC PACEMAKER 07/13/2017 RYAN LANDON MD Ot Z95.1 PRESENCE OF AORTOCORONARY BYPASS GRAFT 07/13/2017 RYAN LANDON MD Ot Z95.5 PRESENCE OF CORONARY ANGIOPLASTY IMPLANT 08/05/2017 Ot 786.2 COUGH 08/05/2017 Ot 785.1 PALP ITATIONS 08/05/2017 JAVIER BELLO DO Ot V72. 84 EXAM PRE-OPERATIVE NOS 08/05/2017 RYAN LANDON MD Ot 268.9 VITAMIN D DEFICIENCY NOS 08/05/2017 RYAN LANDON MD Ot 51 5 POSTINFLAM PULM FIBROSIS 08/05/2017 RYAN LANDON MD Ot 733.90 BONE CARTILAGE DIS NOS 08/05/2017 RYAN LANDON MD Ot 786.52 PAINFUL RESPIRATION 08/05/2017 RYAN LANDON MD Ot V45.82 PERCUTANEOUS TRANSLUM CORON ANGIOPLASTY 08/05/2017 Ot 185 MALIGN NEOPL PROSTATE 08/05/2017 Ot 592.0 CALC ULUS OF KIDNEY 08/05/2017 ANDREW NATION MD Ot 185 MALIGN NEOPL PROSTATE 08/05/2017 ANDREW NATION MD Ot V72.8 1 [id number] CARDIOVASCULAR 08/05/2017 ANDREW NATION MD Ot V74.8 SCREEN-BACTERIAL DIS NEC 08/05/2017 TIN SOTO DO Ot 414. 00 CORON ATHEROSCLER NOS TYPE VESSEL, NATIV 08/05/2017 TIN SOTO DO Ot 786. 09 RESPIRATORY ABNORM NEC 08/05/2017 CHETNA WOLF, PERNELL Fermin Ot C61 MALIGNANT NEOPLASM OF PROSTATE 08/05/2017 ANDREW NATION MD Ot N20.0 CALCULUS OF KIDNEY 08/05/2017 ANDREW NATION MD Ot Z09 ENCNTR FOR F/U EXAM AFT TRTMT FOR COND O 08/05/2017 DEMAR WOLF, ZHANNA Suazo Ot R07. 9 CHEST PAIN, UNSPECIFIED 08/05/2017 SAMUEL WOLF FACC, MICHAEL FACP CCDS Ot E66.09 OTHER OBESITY DUE TO EXCESS CALORIES 08/05/2017 SAMUEL WOLF FACC, ALI FACP CCDS Ot E78.4 OTHER HYPERLIPIDEMIA 08/05/2017 SAMUEL WOLF FACC, ALI FACP CCDS Ot I10 ESSENTIAL (PRIMARY) HYPERTENSION 08/05/2017 SAMUEL WOLF FAC, ALI FACP CCDS Ot [...] STENOSIS OF BILATERAL LEE 08/05/2017 SAMUEL WOLF FAC, ALI FACP CCDS Ot R06.09 OTHER FORMS OF DYSPNEA 08/05/2017 SAMUEL WOLF FAC, ALI FACP CCDS Ot R53.83 OTHER FATIGUE 08/05/2017 Kwadwo CARRASCO MD Ot E11 .9 TYPE 2 DIABETES MELLITUS WITHOUT COMPLIC 08/05/2017 Kwadwo CARRASCO MD Ot E66 .8 OTHER OBESITY 08/05/2017 Kwadwo CARRASCO MD Ot E78 .5 HYPERLIPIDEMIA, UNSPECIFIED 08/05/2017 Kwadwo CARRASCO MD Ot G47.33 OBSTRUCTIVE SLEEP APNEA (ADULT) (PEDIATR 08/05/2017 Kwadwo CARRASCO MD Ot I10 ESSENTIAL (PRIMARY) HYPERTENSION 08/05/2017 Kwadwo CARRASCO MD Ot I25.10 ATHSCL HEART DISEASE OF [place] CORONARY 08/05/2017 Kwadwo CARRASCO MD Ot I44.60 UNSPECIFIED FASCICULAR BLOCK 08/05/2017 Kwadwo CARRASCO MD Ot I48 .0 PAROXYSMAL ATRIAL FIBRILLATION 08/05/2017 Kwadwo CARRASCO MD Ot K21 .9 GASTRO-ESOPHAGEAL REFLUX DISEASE WITHOUT 08/05/2017 LUNA WOLF, Kwadwo JEFFRIES Ot R00 .0 TACHYCARDIA, UNSPECIFIED 08/05/2017 Kwadwo CARRASCO MD, Ot R00 .1 BRADYCARDIA, UNSPECIFIED 08/05/2017 Kwadwo CARRASCO MD Ot R53.83 OTHER FATIGUE 08/05/2017 Kwadwo CARRASCO MD, Ot Z68.34 BODY MASS INDEX (BMI) 34.0-34.9, ADULT 08/05/2017 Kwadwo CARRASCO MD, Ot Z79.01 ACID TANK LINER (CURRENT) USE OF ANTICOAGULANT 08/05/2017 Kwadwo CARRASCO MD, Ot Z79.899 OTHER [facility] (CURRENT) DRUG THERAPY 08/05/2017 Kwadwo CARRASCO MD, Ot Z87.891 PERSONAL HISTORY OF NICOTINE DEPENDENCE 08/05/2017 Kwadwo CARRASCO MD, Ot Z95 .1 PRESENCE OF AORTOCORONARY BYPASS GRAFT 08/05/2017 Kwadwo CARRASCO MD, Ot 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 08/06/2017 MAGDALENA CROWE DO Ot E11.9 TYPE 2 DIABETES MELLITUS WITHOUT COMPLIC 08/06/2017 MAGDALENA CROWE DO Ot E78.00 PURE HYPERCHOLESTEROLEMIA, UNSPECIFIED 08/06/2017 MAGDALENA CROWE DO Ot G47.30 SLEEP APNEA, UNSPECIFIED 08/06/2017 PRICE CROWE DOA K Ot I10 ESSENTIAL (PRIMARY) HYPERTENSION 08/06/2017 MAGDALENA CROWE DO Ot I25.10 ATHSCL HEART DISEASE OF [place] CORONARY 08/06/2017 PRICE CROWE DOA Ashia Ot I48.91 UNSPECIFIED ATRIAL FIBRILLATION 08/06/2017 MAGDALENA [...] 08/06/2017 Ot 786.2 COUGH 08/06/2017 Ot 785.1 PALP ITATIONS 08/06/2017 JAVIER BELLO DO Ot V72. 84 EXAM PRE-OPERATIVE NOS 08/06/2017 BARBI WOLF, RYAN Sotelo Ot 268.9 VITAMIN D DEFICIENCY NOS 08/06/2017 RYAN LANDON MD Ot 51 5 POSTINFLAM PULM FIBROSIS 08/06/2017 BARBI WOLF, RYAN Sotelo Ot 733.90 BONE CARTILAGE DIS NOS 08/06/2017 RYAN LANDON MD Ot 786.52 PAINFUL RESPIRATION 08/06/2017 RYAN LANDON MD Ot V45.82 PERCUTANEOUS TRANSLUM CORON ANGIOPLASTY 08/06/2017 Ot 185 MALIGN NEOPL PROSTATE 08/06/2017 Ot 592.0 CALC ULUS OF KIDNEY 08/06/2017 ANDREW NATION MD Ot 185 MALIGN NEOPL PROSTATE 08/06/2017 ANDREW NATION MD Ot V72.8 1 [id number] CARDIOVASCULAR 08/06/2017 ANDREW NATION MD Ot V74.8 SCREEN-BACTERIAL DIS NEC 08/06/2017 TIN SOTO DO Ot 414. 00 CORON ATHEROSCLER NOS TYPE VESSEL, NATIV 08/06/2017 TIN SOTO DO M Ot 786. 09 RESPIRATORY ABNORM NEC 08/06/2017 CHETNA WOLF, PERNELL E Ot C61 MALIGNANT NEOPLASM OF PROSTATE 08/06/2017 CHAPIS WOLF, ANDREW Sotelo Ot N20.0 CALCULUS OF KIDNEY 08/06/2017 CHAPIS WOLF, ANDREW Sotelo Ot Z09 ENCNTR FOR F/U EXAM AFT TRTMT FOR COND O 08/06/2017 DEMAR WOLF, ZHANNA Suazo Ot R07. 9 CHEST PAIN, UNSPECIFIED 08/06/2017 SAMUEL WOFL FACC, ALI FACP CCDS Ot E66.09 OTHER OBESITY DUE TO EXCESS CALORIES 08/06/2017 SAMUEL WOLF FACC, ALI FACP CCDS Ot E78.4 OTHER HYPERLIPIDEMIA 08/06/2017 SAMUEL RICHARDC, ALI FACP CCDS Ot I10 ESSENTIAL (PRIMARY) HYPERTENSION 08/06/2017 SAMUEL WOLF FACC, ALI FACP CCDS Ot I48.0 PAROXYSMAL ATRIAL FIBRILLATION 08/06/2017 SAMUEL WOLF FACC, ALI FACP CCDS Ot 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 08/06/2017 SAMUEL WOLF FACC, ALI FACP CCDS Ot R06.09 OTHER FORMS OF DYSPNEA 08/06/2017 SAMUEL RICHARDC, ALI FACP CCDS Ot R53.83 OTHER FATIGUE 08/06/2017 SAMUEL WOLF FACC, ALI FACP CCDS Ot E66.09 OTHER OBESITY DUE TO EXCESS CALORIES 08/06/2017 SAMUEL RICHARDC, ALI FACP CCDS Ot E78.4 OTHER HYPERLIPIDEMIA 08/06/2017 SAMUEL WOLF FACC, ALI FACP CCDS Ot I10 ESSENTIAL (PRIMARY) HYPERTENSION 08/06/2017 SAMUEL WOLF FACC, ALI FACP CCDS Ot I48.0 PAROXYSMAL ATRIAL FIBRILLATION 08/06/2017 SAMUEL RICHARDC, ALI FACP CCDS Ot 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 08/06/2017 SAMUEL RICHARDC, ALI FACP CCDS Ot R06.09 OTHER FORMS OF DYSPNEA 08/06/2017 SAMUEL WOLF FACC, ALI FACP CCDS Ot R53.83 OTHER FATIGUE 08/06/2017 Kwadwo CARRASCO MD Ot E11 .9 TYPE 2 DIABETES MELLITUS WITHOUT COMPLIC 08/06/2017 Kwadwo CARRASCO MD Ot E66 .8 OTHER OBESITY 08/06/2017 Kwadwo CARRASCO MD Ot E78 .5 HYPERLIPIDEMIA, UNSPECIFIED 08/06/2017 Kwadwo CARRASCO MD Ot G47.33 OBSTRUCTIVE SLEEP APNEA (ADULT) (PEDIATR 08/06/2017 Kwadwo CARRASCO MD Ot I10 ESSENTIAL (PRIMARY) HYPERTENSION 08/06/2017 Kwadwo CARRASCO MD Ot I25.10 ATHSCL HEART DISEASE OF [place] CORONARY 08/06/2017 Kwadwo CARRASCO MD Ot I44.60 UNSPECIFIED FASCICULAR BLOCK 08/06/2017 Kwadwo CARRASCO MD Ot I48 .0 PAROXYSMAL ATRIAL FIBRILLATION 08/06/2017 Kwadwo CARRASCO MD, Ot K21 .9 GASTRO-ESOPHAGEAL REFLUX DISEASE WITHOUT 08/06/2017 Kwadwo CARRASCO MD Ot R00 .0 TACHYCARDIA, UNSPECIFIED 08/06/2017 Kwawdo CARRASCO MD Ot R00 .1 BRADYCARDIA, UNSPECIFIED 08/06/2017 Kwadwo CARRASCO MD Ot R53.83 OTHER FATIGUE 08/06/2017 Kwadwo CARRASCO MD Ot Z68.34 BODY MASS INDEX (BMI) 34.0-34.9, ADULT 08/06/2017 Kwadwo CARRASCO MD Ot Z79.01 [facility] (CURRENT) USE OF ANTICOAGULANT 08/06/2017 Kwadwo CARRASCO MD Ot Z79.899 OTHER ACID TANK LINER (CURRENT) DRUG THERAPY 08/06/2017 Kwadwo CARRASCO MD Ot Z87.891 PERSONAL HISTORY OF NICOTINE DEPENDENCE 08/06/2017 Kwadwo CARRASCO MD Ot Z95 .1 PRESENCE OF AORTOCORONARY BYPASS GRAFT 08/06/2017 Kwadwo CARRASCO MD Ot 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 11/11/2017 Kwadwo CARRASCO MD Ot E11 .9 TYPE 2 DIABETES MELLITUS WITHOUT COMPLIC 11/11/2017 Kwadwo CARRASCO MD Ot E66 .8 OTHER OBESITY 11/11/2017 Kwadwo CARRASCO MD Ot E78 .5 HYPERLIPIDEMIA, UNSPECIFIED 11/11/2017 Kwadwo CARRASCO MD, Ot G47.33 OBSTRUCTIVE SLEEP APNEA (ADULT) (PEDIATR 11/11/2017 Kwadwo CARRASCO MD, Ot I10 ESSENTIAL (PRIMARY) HYPERTENSION 11/11/2017 Kwadwo CARRASCO MD, Ot I25.10 ATHSCL HEART DISEASE OF [place] CORONARY 11/11/2017 Kwadwo CARRASCO MD Ot I44.60 UNSPECIFIED FASCICULAR BLOCK 11/11/2017 Kwadwo CARRASCO MD Ot I48 .0 PAROXYSMAL ATRIAL FIBRILLATION 11/11/2017 Kwadwo CARRASCO MD, Ot K21 .9 GASTRO-ESOPHAGEAL REFLUX DISEASE WITHOUT 11/11/2017 Kwadwo CARRASCO MD Ot R00 .0 TACHYCARDIA, UNSPECIFIED 11/11/2017 Kwadwo CARRASCO MD Ot R00 .1 BRADYCARDIA, UNSPECIFIED 11/11/2017 Kwadwo CARRASCO MD Ot R53.83 OTHER FATIGUE 11/11/2017 Kwadwo CARRASCO MD Ot Z68.34 BODY MASS INDEX (BMI) 34.0-34.9, ADULT 11/11/2017 Kwadwo CARRASCO MD Ot Z79.01 ACID TANK LINER (CURRENT) USE OF ANTICOAGULANT 11/11/2017 Kwadwo CARRASCO MD Ot Z79.899 OTHER [facility] (CURRENT) DRUG THERAPY 11/11/2017 Kwadwo CARRASCO MD Ot Z87.891 PERSONAL HISTORY OF NICOTINE DEPENDENCE 11/11/2017 Kwadwo CARRASCO MD Ot Z95 .1 PRESENCE OF AORTOCORONARY BYPASS GRAFT 11/11/2017 Kwadwo CARRASCO MD Ot 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 11/14/2017 JUAN J ALEMAN MD Ot E66. 9 OBESITY, UNSPECIFIED 11/14/2017 JUAN J ALEMAN MD Ot E78. 00 PURE HYPERCHOLESTEROLEMIA, UNSPECIFIED 11/14/2017 JUNA J ALEMAN MD Ot G47. 33 OBSTRUCTIVE SLEEP APNEA (ADULT) (PEDIATR 11/14/2017 JUAN J ALEMAN MD Ot H91. 90 UNSPECIFIED HEARING LOSS, UNSPECIFIED EA 11/14/2017 JUAN J ALEMAN MD Ot I10 ESSENTIAL (PRIMARY) HYPERTENSION 11/14/2017 JUAN J ALEMAN MD Ot I25.110 ATHSCL HEART DISEASE OF [place] COR ART W 11/14/2017 JUAN J ALEMAN MD, Ot I48. 0 PAROXYSMAL ATRIAL FIBRILLATION 11/14/2017 JUAN J ALEMAN MD, Ot I65. 23 OCCLUSION AND STENOSIS OF BILATERAL LEE 11/14/2017 JUAN J ALEMAN MD Ot J30. 2 OTHER SEASONAL ALLERGIC RHINITIS 11/14/2017 JUAN J ALEMAN MD Ot K21. 9 GASTRO-ESOPHAGEAL REFLUX DISEASE WITHOUT 11/14/2017 JUAN J ALEMAN MD, Ot K59. 09 OTHER CONSTIPATION 11/14/2017 JUAN J ALEMAN MD, Ot M19. 91 PRIMARY OSTEOARTHRITIS, UNSPECIFIED SITE 11/14/2017 JUAN J ALEMAN MD Ot N39. 41 URGE INCONTINENCE 11/14/2017 JUAN J ALEMAN MD, Ot R35. 0 FREQUENCY OF MICTURITION 11/14/2017 JUAN J ALEMAN MD Ot R60. 0 LOCALIZED EDEMA 11/14/2017 JUAN J ALEMAN MD, Ot Z68. 33 BODY MASS INDEX (BMI) 33.0-33.9, ADULT 11/14/2017 JUAN J ALEMAN MD, Ot Z79. 01 ACID TANK LINER (CURRENT) USE OF ANTICOAGULANT 11/14/2017 JUAN J ALEMAN MD, Ot Z85. 46 PERSONAL HISTORY OF MALIGNANT NEOPLASM O 11/14/2017 JUAN J ALEMAN MD, Ot Z86. 19 PERSONAL HISTORY OF OTHER INFECTIOUS AND 11/14/2017 JUAN J ALEMAN MD, Ot Z86. 73 PRSNL HX OF TIA (TIA), AND CEREB INFRC W 11/14/2017 JUAN J ALEMAN MD, Ot Z87. 11 PERSONAL HISTORY OF PEPTIC ULCER DISEASE 11/14/2017 JUAN J ALEMAN MD, Ot Z87.891 PERSONAL HISTORY OF NICOTINE DEPENDENCE 11/14/2017 JUAN J ALEMAN MD, Ot Z91. 19 PATIENT'S NONCOMPLIANCE W [facility] 11/14/2017 JUAN J ALEMAN MD Ot Z95. 0 PRESENCE OF CARDIAC PACEMAKER 11/14/2017 JUAN J ALEMAN MD Ot Z95. 1 PRESENCE OF AORTOCORONARY BYPASS GRAFT 11/14/2017 JUAN J ALEMAN MD, Ot Z95. 5 PRESENCE OF CORONARY ANGIOPLASTY IMPLANT 11/14/2017 JUAN J ALEMAN MD Ot E11. 9 TYPE 2 DIABETES MELLITUS WITHOUT COMPLIC 11/14/2017 JUAN J ALEMAN MD Ot E66. 9 OBESITY, UNSPECIFIED 11/14/2017 JUAN J ALEMAN MD, Ot E78. 5 HYPERLIPIDEMIA, UNSPECIFIED 11/14/2017 JUAN J ALEMAN MD Ot G47. 33 OBSTRUCTIVE SLEEP APNEA (ADULT) (PEDIATR 11/14/2017 JUAN J ALEMAN MD Ot I10 ESSENTIAL (PRIMARY) HYPERTENSION 11/14/2017 JUAN J ALEMAN MD Ot I25.110 ATHSCL HEART DISEASE OF [place] COR ART W 11/14/2017 JUAN J ALEMAN MD, Ot I44. 4 LEFT ANTERIOR FASCICULAR BLOCK 11/14/2017 JUAN J ALEMAN MD Ot I48. 0 PAROXYSMAL ATRIAL FIBRILLATION 11/14/2017 JUAN J ALEMAN MD Ot I65. 23 OCCLUSION AND STENOSIS OF BILATERAL LEE 11/14/2017 JUAN J ALEMAN MD Ot J30. 2 OTHER SEASONAL ALLERGIC RHINITIS 11/14/2017 JUAN J ALEMAN MD Ot K21. 9 GASTRO-ESOPHAGEAL REFLUX DISEASE WITHOUT 11/14/2017 JUAN J ALEMAN MD Ot K59. 09 OTHER CONSTIPATION 11/14/2017 JUAN J ALEMAN MD Ot M19. 91 PRIMARY OSTEOARTHRITIS, UNSPECIFIED SITE 11/14/2017 JUAN J ALEMAN MD Ot N39. 41 URGE INCONTINENCE 11/14/2017 JUAN J ALEMAN MD Ot R35. 0 FREQUENCY OF MICTURITION 11/14/2017 JUAN J ALEMAN MD Ot R60. 0 LOCALIZED EDEMA 11/14/2017 JUAN J ALEMAN MD Ot Z68. 33 BODY MASS INDEX (BMI) 33.0-33.9, ADULT 11/14/2017 JUAN J ALEMAN MD Ot Z79. 01 ACID TANK LINER (CURRENT) USE OF ANTICOAGULANT 11/14/2017 JUAN J ALEMAN MD Ot Z85. 46 PERSONAL HISTORY OF MALIGNANT NEOPLASM O 11/14/2017 JUAN J ALEMAN MD Ot Z86. 19 PERSONAL HISTORY OF OTHER INFECTIOUS AND 11/14/2017 JUAN J ALEMAN MD, Ot Z86. 73 PRSNL HX OF TIA (TIA), AND CEREB INFRC W 11/14/2017 JUAN J ALEMAN MD Ot Z87. 11 PERSONAL HISTORY OF PEPTIC ULCER DISEASE 11/14/2017 JUAN J ALEMAN MD, Ot Z87.891 PERSONAL HISTORY OF NICOTINE DEPENDENCE 11/14/2017 JUAN J ALEMAN MD, Ot Z91. 19 PATIENT'S NONCOMPLIANCE W [facility] 11/14/2017 JUAN J ALEMAN MD, Ot Z95. 0 PRESENCE OF CARDIAC PACEMAKER 11/14/2017 JUAN J ALEMAN MD, Ot Z95. 1 PRESENCE OF AORTOCORONARY BYPASS GRAFT 11/14/2017 JUAN J ALEMAN MD, Ot Z95. 5 PRESENCE OF CORONARY ANGIOPLASTY IMPLANT 05/01/2018 Kwadwo CARRASCO MD Ot E11 .9 TYPE 2 DIABETES MELLITUS WITHOUT COMPLIC 05/01/2018 Kwadwo CARRASCO MD, Ot E66 .8 OTHER OBESITY 05/01/2018 Kwadwo CARRASCO MD, Ot E78 .5 HYPERLIPIDEMIA, UNSPECIFIED 05/01/2018 Kwadwo CARRASCO MD, Ot G47.33 OBSTRUCTIVE SLEEP APNEA (ADULT) (PEDIATR 05/01/2018 Kwadwo CARRASCO MD, Ot I10 ESSENTIAL (PRIMARY) HYPERTENSION 05/01/2018 Kwadwo CARRASCO MD, Ot I25.10 ATHSCL HEART DISEASE OF [place] CORONARY 05/01/2018 Kwadwo CARRASCO MD, Ot I44.60 UNSPECIFIED FASCICULAR BLOCK 05/01/2018 Kwadwo CARRASCO MD, Ot I48 .0 PAROXYSMAL ATRIAL FIBRILLATION 05/01/2018 Kwadwo CARRASCO MD Ot K21 .9 GASTRO-ESOPHAGEAL REFLUX DISEASE WITHOUT 05/01/2018 Kwadwo CARRASCO MD Ot R00 .0 TACHYCARDIA, UNSPECIFIED 05/01/2018 Kwadwo CARRASCO MD, Ot R00 .1 BRADYCARDIA, UNSPECIFIED 05/01/2018 Kwadwo CARRASCO MD Ot R53.83 OTHER FATIGUE 05/01/2018 Kwadwo CARRASCO MD, Ot Z68.34 BODY MASS INDEX (BMI) 34.0-34.9, ADULT 05/01/2018 Kwadwo CARRASCO MD, Ot Z79.01 [facility] (CURRENT) USE OF ANTICOAGULANT 05/01/2018 Kwadwo CARRASCO MD, Ot Z79.899 OTHER [facility] (CURRENT) DRUG THERAPY 05/01/2018 Kwadwo CARRASCO MD Ot Z87.891 PERSONAL HISTORY OF NICOTINE DEPENDENCE 05/01/2018 Kwadwo CARRASCO MD Ot Z95 .1 PRESENCE OF AORTOCORONARY BYPASS GRAFT 05/01/2018 Kwadwo CARRASCO MD Ot 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 05/02/2018 Kwadwo CARRASCO MD Ot 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 05/02/2018 Kwadwo CARRASCO MD Ot I10 ESSENTIAL (PRIMARY) HYPERTENSION 05/02/2018 Kwadwo CARRASCO MD Ot I48 .0 PAROXYSMAL ATRIAL FIBRILLATION 05/02/2018 Kwadwo CARRASCO MD Ot I77.89 OTHER SPECIFIED DISORDERS OF ARTERIES AN 05/02/2018 Kwadwo CARRASCO MD Ot R06.09 OTHER FORMS OF DYSPNEA 05/02/2018 Kwadwo CARRASCO MD Ot R53.83 OTHER FATIGUE 05/23/2018 Kwadwo CARRASCO MD Ot 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 05/23/2018 Kwadwo CARRASCO MD Ot I10 ESSENTIAL (PRIMARY) HYPERTENSION 05/23/2018 Kwadwo CARRASCO MD Ot I48 .0 PAROXYSMAL ATRIAL FIBRILLATION 05/23/2018 Kwadwo CARRASCO MD Ot I77.89 OTHER SPECIFIED DISORDERS OF ARTERIES AN 05/23/2018 Kwadwo CARRASCO MD Ot R06.09 OTHER FORMS OF DYSPNEA 05/23/2018 Kwadwo CARRASCO MD Ot R53.83 OTHER FATIGUE 05/24/2018 Kwadwo CARRASCO MD Ot 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 05/24/2018 Kwadwo CARRASCO MD Ot I10 ESSENTIAL (PRIMARY) HYPERTENSION 05/24/2018 Kwadwo CARRASCO MD Ot I48 .0 PAROXYSMAL ATRIAL FIBRILLATION 05/24/2018 Kwadwo CARRASCO MD Ot I77.89 OTHER SPECIFIED DISORDERS OF ARTERIES AN 05/24/2018 Kwadwo CARRASCO MD Ot R06.09 OTHER FORMS OF DYSPNEA 05/24/2018 Kwadwo CARRASCO MD Ot R53.83 OTHER FATIGUE 06/06/2018 BARBI WOLF, RYAN A Ot R0 5 COUGH 06/10/2018 BARBI WOLF, RYAN A Ot R0 5 COUGH 06/28/2018 BARBI WOLF, RYAN A Ot R0 5 COUGH 07/04/2018 BARBI WOLF, RYAN A Ot R0 5 COUGH 07/23/2018 Kwadwo CARRASCO MD Ot E11 .9 TYPE 2 DIABETES MELLITUS WITHOUT COMPLIC 07/23/2018 Kwadwo CARRASCO MD Ot E78 .5 HYPERLIPIDEMIA, UNSPECIFIED 07/23/2018 Kwadwo CARRASCO MD Ot I25.10 ATHSCL HEART DISEASE OF [place] CORONARY 07/23/2018 Kwadwo CARRASCO MD Ot I48 .1 PERSISTENT ATRIAL FIBRILLATION 07/23/2018 Kwadwo CARRASCO MD Ot R53.81 OTHER MALAISE 07/23/2018 Kwadwo CARRASCO MD Ot R53.83 OTHER FATIGUE 07/23/2018 Kwadwo CARRASCO MD Ot Z79.01 ACID TANK LINER (CURRENT) USE OF ANTICOAGULANT 07/23/2018 Kwadwo CARRASCO MD Ot Z79.899 OTHER [facility] (CURRENT) DRUG THERAPY 07/23/2018 Kwadwo CARRASCO MD Ot Z86.73 PRSNL HX OF TIA (TIA), AND CEREB INFRC W 07/23/2018 Kwadwo CARRASCO MD Ot Z87.891 PERSONAL HISTORY OF NICOTINE DEPENDENCE 07/23/2018 Kwadwo CARRASCO MD Ot Z88 .1 ALLERGY STATUS TO OTHER ANTIBIOTIC AGENT 07/23/2018 Kwadwo CARRASCO MD Ot Z95 .0 PRESENCE OF CARDIAC PACEMAKER 07/23/2018 Kwadwo CARRASCO MD Ot Z95 .1 PRESENCE OF AORTOCORONARY BYPASS GRAFT 07/24/2018 Kwadwo CARRASCO MD Ot E11 .9 TYPE 2 DIABETES MELLITUS WITHOUT COMPLIC 07/24/2018 Kwadwo CARRASCO MD Ot E78 .5 HYPERLIPIDEMIA, UNSPECIFIED 07/24/2018 Kwadwo CARRASCO MD Ot I25.10 ATHSCL HEART DISEASE OF [place] CORONARY 07/24/2018 Kwadwo CARRASCO MD Ot I48 .1 PERSISTENT ATRIAL FIBRILLATION 07/24/2018 Kwadwo CARRASCO MD Ot R53.81 OTHER MALAISE 07/24/2018 Kwadwo CARRASCO MD, Ot R53.83 OTHER FATIGUE 07/24/2018 Kwadwo CARRASCO MD Ot Z79.01 FCI (CURRENT) USE OF ANTICOAGULANT 07/24/2018 Kwadwo CARRASCO MD, Ot Z79.899 OTHER [facility] (CURRENT) DRUG THERAPY 07/24/2018 Kwadwo CARRASCO MD, Ot Z86.73 PRSNL HX OF TIA (TIA), AND CEREB INFRC W 07/24/2018 Kwadwo CARRASCO MD, Ot Z87.891 PERSONAL HISTORY OF NICOTINE DEPENDENCE 07/24/2018 Kwadwo CARRASCO MD, Ot Z88 .1 ALLERGY STATUS TO OTHER ANTIBIOTIC AGENT 07/24/2018 Kwadwo CARRASCO MD Ot Z95 .0 PRESENCE OF CARDIAC PACEMAKER 07/24/2018 Kwadwo CARRASCO MD, Ot Z95 .1 PRESENCE OF AORTOCORONARY BYPASS GRAFT 11/02/2018 Ot 785.1 PALP ITATIONS 11/02/2018 JAVIER BELLO DO Ot V72. 84 EXAM PRE-OPERATIVE NOS 11/02/2018 RYAN LANDON MD Ot 268.9 VITAMIN D DEFICIENCY NOS 11/02/2018 RYAN LANDON MD Ot 51 5 POSTINFLAM PULM FIBROSIS 11/02/2018 RYAN LANDON MD Ot 733.90 BONE CARTILAGE DIS NOS 11/02/2018 RYAN LANDON MD Ot 786.52 PAINFUL RESPIRATION 11/02/2018 RYAN LANDON MD Ot V45.82 PERCUTANEOUS TRANSLUM CORON ANGIOPLASTY 11/02/2018 Ot 185 MALIGN NEOPL PROSTATE 11/02/2018 Ot 592.0 CALC ULUS OF KIDNEY 11/02/2018 ANDREW NATION MD Ot 185 MALIGN NEOPL PROSTATE 11/02/2018 ANDREW NATION MD Ot V72.8 1 [id number] CARDIOVASCULAR 11/02/2018 ANDREW NATION MD Ot V74.8 SCREEN-BACTERIAL DIS NEC 11/02/2018 TIN SOTO DO Ot 414. 00 CORON ATHEROSCLER NOS TYPE VESSEL, NATIV 11/02/2018 TIN SOTO DO Ot 786. 09 RESPIRATORY ABNORM NEC 11/02/2018 CHETNA WOLF, PERNELL Fermin Ot C61 MALIGNANT NEOPLASM OF PROSTATE 11/02/2018 CHAPIS WOLF, ADNREW Sotelo Ot N20.0 CALCULUS OF KIDNEY 11/02/2018 CHAPIS WOLF, ANDREW Sotelo Ot Z09 ENCNTR FOR F/U EXAM AFT TRTMT FOR COND O 11/02/2018 DEMAR WOLF, ZHANNA Suazo Ot R07. 9 CHEST PAIN, UNSPECIFIED 11/02/2018 SAMUEL WOLF FACC, ALI FACP CCDS Ot E66.09 OTHER OBESITY DUE TO EXCESS CALORIES 11/02/2018 SAMUEL RICHARDC, ALI FACP CCDS Ot E78.4 OTHER HYPERLIPIDEMIA 11/02/2018 SAMUEL WOLF FACC, ALI FACP CCDS Ot I10 ESSENTIAL (PRIMARY) HYPERTENSION 11/02/2018 SAMUEL WOLF FACC, ALI FACP CCDS Ot I48.0 PAROXYSMAL ATRIAL FIBRILLATION 11/02/2018 SAMUEL WOLF FACC, ALI FACP CCDS Ot 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 11/02/2018 SAMUEL WOLF FACC, ALI FACP CCDS Ot R06.09 OTHER FORMS OF DYSPNEA 11/02/2018 SAMUEL RICHARDC, ALI FACP CCDS Ot R53.83 OTHER FATIGUE 11/02/2018 SAMUEL WOLF FACC, ALI FACP CCDS Ot E66.09 OTHER OBESITY DUE TO EXCESS CALORIES 11/02/2018 SAMUEL WOLF FACC, ALI FACP CCDS Ot E78.4 OTHER HYPERLIPIDEMIA 11/02/2018 SAMUEL WOLF FACC, ALI FACP CCDS Ot I10 ESSENTIAL (PRIMARY) HYPERTENSION 11/02/2018 SAMUEL WOLF FACC, ALI FACP CCDS Ot I48.0 PAROXYSMAL ATRIAL FIBRILLATION 11/02/2018 SAMUEL WOLF FACC, ALI FACP CCDS Ot 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 11/02/2018 SAMUEL WOLF FACC, ALI FACP CCDS Ot R06.09 OTHER FORMS OF DYSPNEA 11/02/2018 SAMUEL RICHARDC, ALI FACP CCDS Ot R53.83 OTHER FATIGUE 11/02/2018 Kwadwo CARRASCO MD Ot E11 .9 TYPE 2 DIABETES MELLITUS WITHOUT COMPLIC 11/02/2018 Kwadwo CARRASCO MD Ot E66 .8 OTHER OBESITY 11/02/2018 Kwadwo CARRASCO MD Ot E78 .5 HYPERLIPIDEMIA, UNSPECIFIED 11/02/2018 Kwadwo CARRASCO MD Ot G47.33 OBSTRUCTIVE SLEEP APNEA (ADULT) (PEDIATR 11/02/2018 Kwadwo CARRASCO MD Ot I10 ESSENTIAL (PRIMARY) HYPERTENSION 11/02/2018 Kwadwo CARRASCO MD Ot I25.10 ATHSCL HEART DISEASE OF [place] CORONARY 11/02/2018 Kwadwo CARRASCO MD Ot I44.60 UNSPECIFIED FASCICULAR BLOCK 11/02/2018 Kwadwo CARRASCO MD Ot I48 .0 PAROXYSMAL ATRIAL FIBRILLATION 11/02/2018 Kwadwo CARRASCO MD Ot K21 .9 GASTRO-ESOPHAGEAL REFLUX DISEASE WITHOUT 11/02/2018 Kwadwo CARRASCO MD Ot R00 .0 TACHYCARDIA, UNSPECIFIED 11/02/2018 Kwadwo CARRASCO MD Ot R00 .1 BRADYCARDIA, UNSPECIFIED 11/02/2018 Kwadwo CARRASCO MD Ot R53.83 OTHER FATIGUE 11/02/2018 Kwadwo CARRASCO MD Ot Z68.34 BODY MASS INDEX (BMI) 34.0-34.9, ADULT 11/02/2018 Kwadwo CARRASCO MD Ot Z79.01 [facility] (CURRENT) USE OF ANTICOAGULANT 11/02/2018 Kwadwo CARRASCO MD Ot Z79.899 OTHER ACID TANK LINER (CURRENT) DRUG THERAPY 11/02/2018 Kwadwo CARRASCO MD, Ot Z87.891 PERSONAL HISTORY OF NICOTINE DEPENDENCE 11/02/2018 Kwadwo CARRASCO MD Ot Z95 .1 PRESENCE OF AORTOCORONARY BYPASS GRAFT 11/02/2018 Kwadwo CARRASCO MD Ot 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 11/02/2018 Kwadwo CARRASCO MD Ot 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 84 EXAM PRE-OPERATIVE NOS 11/05/2018 RYAN LANDON MD Ot 268.9 VITAMIN D DEFICIENCY NOS 11/05/2018 RYAN LANDON MD Ot 51 5 POSTINFLAM PULM FIBROSIS 11/05/2018 RYAN LANDON MD Ot 733.90 BONE CARTILAGE DIS NOS 11/05/2018 RYAN LANDON MD Ot 786.52 PAINFUL RESPIRATION 11/05/2018 RYAN LANDON MD Ot V45.82 PERCUTANEOUS TRANSLUM CORON ANGIOPLASTY 11/05/2018 Ot 185 MALIGN NEOPL PROSTATE 11/05/2018 Ot 592.0 CALC ULUS OF KIDNEY 11/05/2018 ANDREW NATION MD Ot 185 MALIGN NEOPL PROSTATE 11/05/2018 ANDREW NATION MD Ot V72.8 1 [id number] CARDIOVASCULAR 11/05/2018 ANDREW NATION MD Ot V74.8 SCREEN-BACTERIAL DIS NEC 11/05/2018 TIN SOTO DO Ot 414. 00 CORON ATHEROSCLER NOS TYPE VESSEL, NATIV 11/05/2018 TIN SOTO DO Ot 786. 09 RESPIRATORY ABNORM NEC 11/05/2018 CHETNA WOLF, PERNELL Fermin Ot C61 MALIGNANT NEOPLASM OF PROSTATE 11/05/2018 ANDREW NATION MD Ot N20.0 CALCULUS OF KIDNEY 11/05/2018 ANDREW NATION MD Ot Z09 ENCNTR FOR F/U EXAM AFT TRTMT FOR COND O 11/05/2018 DEMAR WOLF, ZHANNA Suazo Ot R07. 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 11/05/2018 SAMUEL WOLF FACC, ALI FACP CCDS Ot R06.09 OTHER FORMS OF DYSPNEA 11/05/2018 SAMUEL WOLF FACC, ALI FACP CCDS Ot R53.83 OTHER FATIGUE 11/05/2018 SAMUEL WOLF FACC, ALI FACP CCDS Ot E66.09 OTHER OBESITY DUE TO EXCESS CALORIES 11/05/2018 SAMUEL WOLF FACC, ALI FACP CCDS Ot E78.4 OTHER HYPERLIPIDEMIA 11/05/2018 SAMUEL WOLF FACC, ALI FACP CCDS Ot I10 ESSENTIAL (PRIMARY) HYPERTENSION 11/05/2018 SAMUEL WOLF FAC, ALI FACP CCDS Ot I48.0 PAROXYSMAL ATRIAL FIBRILLATION 11/05/2018 SAMUEL WOLF FACC, ALI FACP CCDS Ot 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 11/05/2018 SAMUEL WOLF FAC, ALI FACP CCDS Ot R06.09 OTHER FORMS OF DYSPNEA 11/05/2018 SAMUEL WOLF FAC, ALI FACP CCDS Ot R53.83 OTHER FATIGUE 11/05/2018 Kwadwo CARRASCO MD Ot E11 .9 TYPE 2 DIABETES MELLITUS WITHOUT COMPLIC 11/05/2018 Kwadwo CARRASCO MD Ot E66 .8 OTHER OBESITY 11/05/2018 Kwadwo CARRASCO MD Ot E78 .5 HYPERLIPIDEMIA, UNSPECIFIED 11/05/2018 Kwadwo CARRASCO MD Ot G47.33 OBSTRUCTIVE SLEEP APNEA (ADULT) (PEDIATR 11/05/2018 Kwadwo CARRASCO MD Ot I10 ESSENTIAL (PRIMARY) HYPERTENSION 11/05/2018 Kwadwo CARRASCO MD Ot I25.10 ATHSCL HEART DISEASE OF [place] CORONARY 11/05/2018 Kwadwo CARRASCO MD Ot I44.60 UNSPECIFIED FASCICULAR BLOCK 11/05/2018 Kwadwo CARRASCO MD, Ot I48 .0 PAROXYSMAL ATRIAL FIBRILLATION 11/05/2018 Kwadwo CARRASCO MD, Ot K21 .9 GASTRO-ESOPHAGEAL REFLUX DISEASE WITHOUT 11/05/2018 Kwadwo CARRASCO MD, Ot R00 .0 TACHYCARDIA, UNSPECIFIED 11/05/2018 Kwadwo CARRASCO MD Ot R00 .1 BRADYCARDIA, UNSPECIFIED 11/05/2018 Kwadwo CARRASCO MD Ot R53.83 OTHER FATIGUE 11/05/2018 Kwadwo CARRASCO MD, Ot Z68.34 BODY MASS INDEX (BMI) 34.0-34.9, ADULT 11/05/2018 Kwadwo CARRASCO MD Ot Z79.01 [facility] (CURRENT) USE OF ANTICOAGULANT 11/05/2018 Kwadwo CARRASCO MD, Ot Z79.899 OTHER ACID TANK LINER (CURRENT) DRUG THERAPY 11/05/2018 Kwadwo CARRASCO MD, Ot Z87.891 PERSONAL HISTORY OF NICOTINE DEPENDENCE 11/05/2018 Kwadwo CARRASCO MD Ot Z95 .1 PRESENCE OF AORTOCORONARY BYPASS GRAFT 11/05/2018 Kwadwo CARRASCO MD Ot 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 11/05/2018 Kwadwo CARRASCO MD Ot 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 84 EXAM PRE-OPERATIVE NOS 11/05/2018 RYAN LANDON MD Ot 268.9 VITAMIN D DEFICIENCY NOS 11/05/2018 BARBI WOLF, RYAN Sotelo Ot 51 5 POSTINFLAM PULM FIBROSIS 11/05/2018 BARBI WOLF, RYAN Sotelo Ot 733.90 BONE CARTILAGE DIS NOS 11/05/2018 BARBI WOLF, RYAN Sotelo Ot 786.52 PAINFUL RESPIRATION 11/05/2018 BARBI WOLF, RYAN Sotelo Ot V45.82 PERCUTANEOUS TRANSLUM CORON ANGIOPLASTY 11/05/2018 Ot 185 MALIGN NEOPL PROSTATE 11/05/2018 Ot 592.0 CALC ULUS OF KIDNEY 11/05/2018 ANDREW NATION MD Ot 185 MALIGN NEOPL PROSTATE 11/05/2018 ANDREW NATION MD Ot V72.8 1 [id number] CARDIOVASCULAR 11/05/2018 ANDREW NATION MD Ot V74.8 SCREEN-BACTERIAL DIS NEC 11/05/2018 TIN SOTO DO Ot 414. 00 CORON ATHEROSCLER NOS TYPE VESSEL, NATIV 11/05/2018 TIN SOTO DO Ot 786. 09 RESPIRATORY ABNORM NEC 11/05/2018 CHETNA WOLF, PERNELL Fermin Ot C61 MALIGNANT NEOPLASM OF PROSTATE 11/05/2018 ANDREW NATION MD Ot N20.0 CALCULUS OF KIDNEY 11/05/2018 ANDREW NATION MD Ot Z09 ENCNTR FOR F/U EXAM AFT TRTMT FOR COND O 11/05/2018 DEMAR WOLF, ZHANNA Suazo Ot R07. 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 11/05/2018 SAMUEL WOLF FACC, ALI FACP CCDS Ot R06.09 OTHER FORMS OF DYSPNEA 11/05/2018 SAMUEL WOLF FACC, ALI FACP CCDS Ot R53.83 OTHER FATIGUE 11/05/2018 SAMUEL WOLF FACC, MICHAEL FACP CCDS Ot E66.09 OTHER OBESITY DUE TO EXCESS CALORIES 11/05/2018 SAMUEL WOLF FACC, ALI FACP CCDS Ot E78.4 OTHER HYPERLIPIDEMIA 11/05/2018 SAMUEL WOLF FACC, ALI FACP CCDS Ot I10 ESSENTIAL (PRIMARY) HYPERTENSION 11/05/2018 SAMUEL WOLF FACC, ALI FACP CCDS Ot I48.0 PAROXYSMAL ATRIAL FIBRILLATION 11/05/2018 SAMUEL WOLF FACC, ALI FACP CCDS Ot 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 11/05/2018 SAMUEL WOLF FACC, ALI FACP CCDS Ot R06.09 OTHER FORMS OF DYSPNEA 11/05/2018 SAMUEL WOLF FACC, ALI FACP CCDS Ot R53.83 OTHER FATIGUE 11/05/2018 Kwadwo CARRASCO MD Ot E11 .9 TYPE 2 DIABETES MELLITUS WITHOUT COMPLIC 11/05/2018 Kwadwo CARRASCO MD Ot E66 .8 OTHER OBESITY 11/05/2018 Kwadwo CARRASCO MD Ot E78 .5 HYPERLIPIDEMIA, UNSPECIFIED 11/05/2018 Kwadwo CARRASCO MD Ot G47.33 OBSTRUCTIVE SLEEP APNEA (ADULT) (PEDIATR 11/05/2018 Kwadwo CARRASCO MD Ot I10 ESSENTIAL (PRIMARY) HYPERTENSION 11/05/2018 Kwadwo CARRASCO MD Ot I25.10 ATHSCL HEART DISEASE OF [place] CORONARY 11/05/2018 Kwadwo CARRACSO MD Ot I44.60 UNSPECIFIED FASCICULAR BLOCK 11/05/2018 Kwadwo CARRASCO MD Ot I48 .0 PAROXYSMAL ATRIAL FIBRILLATION 11/05/2018 Kwadwo CARRASCO MD Ot K21 .9 GASTRO-ESOPHAGEAL REFLUX DISEASE WITHOUT 11/05/2018 Kwadwo CARRASCO MD Ot R00 .0 TACHYCARDIA, UNSPECIFIED 11/05/2018 Kwadwo CARRASCO MD Ot R00 .1 BRADYCARDIA, UNSPECIFIED 11/05/2018 Kwadwo CARRASCO MD Ot R53.83 OTHER FATIGUE 11/05/2018 Kwadwo CARRASCO MD Ot Z68.34 BODY MASS INDEX (BMI) 34.0-34.9, ADULT 11/05/2018 Kwadwo CARRASCO MD Ot Z79.01 ACID TANK LINER (CURRENT) USE OF ANTICOAGULANT 11/05/2018 Kwadwo CARRASCO MD, Ot Z79.899 OTHER [facility] (CURRENT) DRUG THERAPY 11/05/2018 Kwadwo CARRASCO MD, Ot Z87.891 PERSONAL HISTORY OF NICOTINE DEPENDENCE 11/05/2018 Kwadwo CARRASCO MD, Ot Z95 .1 PRESENCE OF AORTOCORONARY BYPASS GRAFT 11/05/2018 Kwadwo CARRASCO MD Ot 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 11/05/2018 Kwadwo CARRASCO MD Ot 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 84 EXAM PRE-OPERATIVE NOS 11/05/2018 RYAN LANDON MD Ot 268.9 VITAMIN D DEFICIENCY NOS 11/05/2018 RYAN LANDON MD Ot 51 5 POSTINFLAM PULM FIBROSIS 11/05/2018 RYAN LANDON MD Ot 733.90 BONE CARTILAGE DIS NOS 11/05/2018 RYAN LANDON MD Ot 786.52 PAINFUL RESPIRATION 11/05/2018 RYAN LANDON MD Ot V45.82 PERCUTANEOUS TRANSLUM CORON ANGIOPLASTY 11/05/2018 Ot 185 MALIGN NEOPL PROSTATE 11/05/2018 Ot 592.0 CALC ULUS OF KIDNEY 11/05/2018 ANDREW NATION MD Ot 185 MALIGN NEOPL PROSTATE 11/05/2018 ANDREW NATION MD Ot V72.8 1 [id number] CARDIOVASCULAR 11/05/2018 CHAPIS WOLF, ANDREW Sotelo Ot V74.8 SCREEN-BACTERIAL DIS NEC 11/05/2018 TIN SOTO DO Ot 414. 00 CORON ATHEROSCLER NOS TYPE VESSEL, NATIV 11/05/2018 TIN SOTO DO Ot 786. 09 RESPIRATORY ABNORM NEC 11/05/2018 CHETNA WOLF, PERNELL E Ot C61 MALIGNANT NEOPLASM OF PROSTATE 11/05/2018 CHAPIS WOLF, ANDREW Sotelo Ot N20.0 CALCULUS OF KIDNEY 11/05/2018 CHAPIS WOLF, ANDREW Sotelo Ot Z09 ENCNTR FOR F/U EXAM AFT TRTMT FOR COND O 11/05/2018 DEMAR WOLF, ZHANNA Suazo Ot R07. 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 11/05/2018 SAMUEL WOLF FACC, ALI FACP CCDS Ot R06.09 OTHER FORMS OF DYSPNEA 11/05/2018 SAMUEL WOLF FACC, ALI FACP CCDS Ot R53.83 OTHER FATIGUE 11/05/2018 SAMUEL WOLF FACC, ALI FACP CCDS Ot E66.09 OTHER OBESITY DUE TO EXCESS CALORIES 11/05/2018 SAMUEL WOLF FACC, ALI FACP CCDS Ot E78.4 OTHER HYPERLIPIDEMIA 11/05/2018 SAMUEL RICHARDC, ALI FACP CCDS Ot I10 ESSENTIAL (PRIMARY) HYPERTENSION 11/05/2018 SAMUEL WOLF FACC, ALI FACP CCDS Ot I48.0 PAROXYSMAL ATRIAL FIBRILLATION 11/05/2018 SAMULE RICHARDC, ALI FACP CCDS Ot 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 11/05/2018 SAMUEL RICHARDC, ALI FACP CCDS Ot R06.09 OTHER FORMS OF DYSPNEA 11/05/2018 SAMUEL WOLF FACC, ALI FACP CCDS Ot R53.83 OTHER FATIGUE 11/05/2018 Kwadwo CARRASCO MD Ot E11 .9 TYPE 2 DIABETES MELLITUS WITHOUT COMPLIC 11/05/2018 Kwadwo CARRASCO MD Ot E66 .8 OTHER OBESITY 11/05/2018 Kwadwo CARRASCO MD, Ot E78 .5 HYPERLIPIDEMIA, UNSPECIFIED 11/05/2018 Kwadwo CARRASCO MD Ot G47.33 OBSTRUCTIVE SLEEP APNEA (ADULT) (PEDIATR 11/05/2018 Kwadwo CARRASCO MD Ot I10 ESSENTIAL (PRIMARY) HYPERTENSION 11/05/2018 Kwadwo CARRASCO MD, Ot I25.10 ATHSCL HEART DISEASE OF [place] CORONARY 11/05/2018 Kwadwo CARRASCO MD Ot I44.60 UNSPECIFIED FASCICULAR BLOCK 11/05/2018 Kwadwo CARRASCO MD Ot I48 .0 PAROXYSMAL ATRIAL FIBRILLATION 11/05/2018 Kwadwo CARRASCO MD, Ot K21 .9 GASTRO-ESOPHAGEAL REFLUX DISEASE WITHOUT 11/05/2018 Kwadwo CARRASCO MD Ot R00 .0 TACHYCARDIA, UNSPECIFIED 11/05/2018 Kwadwo CARRASCO MD Ot R00 .1 BRADYCARDIA, UNSPECIFIED 11/05/2018 Kwadwo CARRASCO MD Ot R53.83 OTHER FATIGUE 11/05/2018 Kwadwo CARRASCO MD Ot Z68.34 BODY MASS INDEX (BMI) 34.0-34.9, ADULT 11/05/2018 Kwadwo CARRASCO MD Ot Z79.01 [facility] (CURRENT) USE OF ANTICOAGULANT 11/05/2018 Kwadwo CARRASCO MD Ot Z79.899 OTHER [facility] (CURRENT) DRUG THERAPY 11/05/2018 Kwadwo CARRASCO MD Ot Z87.891 PERSONAL HISTORY OF NICOTINE DEPENDENCE 11/05/2018 Kwadwo CARRASCO MD Ot Z95 .1 PRESENCE OF AORTOCORONARY BYPASS GRAFT 11/05/2018 Kwadwo CARRASCO MD Ot 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 11/05/2018 Kwadwo CARRASCO MD Ot 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 11/05/2018 LUNA WOLF, Kwadwo JEFFRIES Ot I10 ESSENTIAL (PRIMARY) HYPERTENSION 11/05/2018 LUNA WOLF, Kwadwo JEFFRIES Ot I48 .0 PAROXYSMAL ATRIAL FIBRILLATION 11/05/2018 Kwadwo CARRASCO MD Ot I77.89 OTHER SPECIFIED DISORDERS OF ARTERIES AN 11/05/2018 Kwadwo CARRASCO MD Ot R06.09 OTHER FORMS OF DYSPNEA 11/05/2018 Kwadwo CARRASCO MD Ot R53.83 OTHER FATIGUE 11/05/2018 RYAN LANDON MD Ot R0 5 COUGH 11/13/2018 NAYLA WYNNE APRN Ot M16.0 BILATERAL PRIMARY OSTEOARTHRITIS OF HIP 11/13/2018 NAYLA WYNNE APRN Ot M43.28 FUSION OF SPINE, SACRAL AND SACROCOCCYGE 11/13/2018 NAYLA WYNNE APRN Ot M47.816 SPONDYLOSIS W/O MYELOPATHY OR RADICULOPA 11/13/2018 NAYLA WYNNE APRN Ot M48.07 SPINAL STENOSIS, LUMBOSACRAL REGION 11/13/2018 NAYLA WYNNE APRN Ot M53.3 SACROCOCCYGEAL DISORDERS, NOT ELSEWHERE 11/18/2018 NAYLA WYNNE APRN Ot M16.0 BILATERAL PRIMARY OSTEOARTHRITIS OF HIP 11/18/2018 NAYLA WYNNE APRN Ot M43.28 FUSION OF SPINE, SACRAL AND SACROCOCCYGE 11/18/2018 NAYLA WYNNE APRN Ot M47.816 SPONDYLOSIS W/O MYELOPATHY OR RADICULOPA 11/18/2018 NAYLA WYNNE APRN Ot M48.07 SPINAL STENOSIS, LUMBOSACRAL REGION 11/18/2018 NAYLA WYNNE APRN Ot M53.3 SACROCOCCYGEAL DISORDERS, NOT ELSEWHERE 12/04/2018 NAYLA WYNNE APRN Ot M16.0 BILATERAL PRIMARY OSTEOARTHRITIS OF HIP 12/04/2018 NAYLA WYNNE APRN Ot M43.28 FUSION OF SPINE, SACRAL AND SACROCOCCYGE 12/04/2018 NAYLA WYNNE APRN Ot M47.816 SPONDYLOSIS W/O MYELOPATHY OR RADICULOPA 12/04/2018 NAYLA WYNNE APRN Ot M48.07 SPINAL STENOSIS, LUMBOSACRAL REGION 12/04/2018 NAYLA WYNNE APRN Ot M53.3 SACROCOCCYGEAL DISORDERS, NOT ELSEWHERE 02/14/2019 ARIK CHOE MD Ot E11.9 TYPE 2 DIABETES MELLITUS WITHOUT COMPLIC 02/14/2019 ARIK CHOE MD Ot E78.00 PURE HYPERCHOLESTEROLEMIA, UNSPECIFIED 02/14/2019 ARIK CHOE MD, Ot G47.30 SLEEP APNEA, UNSPECIFIED 02/14/2019 ARIK CHOE MD, Ot I10 ESSENTIAL (PRIMARY) HYPERTENSION 02/14/2019 ARIK CHOE MD, Ot I25.10 ATHSCL HEART DISEASE OF [place] CORONARY 02/14/2019 ARIK CHOE MD, Ot I48.91 UNSPECIFIED ATRIAL FIBRILLATION 02/14/2019 ARIK CHOE MD, Ot K21.9 GASTRO-ESOPHAGEAL REFLUX DISEASE WITHOUT 02/14/2019 ARIK CHOE MD, Ot R42 DIZZINESS AND GIDDINESS 02/14/2019 ARIK CHOE MD, Ot Z79.01 [facility] (CURRENT) USE OF ANTICOAGULANT 02/14/2019 ARIK CHOE MD Ot Z79.82 [facility] (CURRENT) USE OF ASPIRIN 02/14/2019 ARIK CHOE MD, Ot Z79.84 ACID TANK LINER (CURRENT) USE OF ORAL HYPOGLYC 02/14/2019 ARIK CHOE MD, Ot Z82.49 FAMILY HX OF ISCHEM HEART DIS AND OTH DI 02/14/2019 ARIK CHOE MD, Ot Z85.46 PERSONAL HISTORY OF MALIGNANT NEOPLASM O 02/14/2019 ARIK CHOE MD, Ot Z86.73 PRSNL HX OF TIA (TIA), AND CEREB INFRC W 02/14/2019 ARIK CHOE MD, Ot Z87.442 PERSONAL HISTORY OF URINARY CALCULI 02/14/2019 ARIK CHOE MD, Ot Z87.891 PERSONAL HISTORY OF NICOTINE DEPENDENCE 02/14/2019 ARIK CHOE MD, Ot Z88.1 ALLERGY STATUS TO OTHER ANTIBIOTIC AGENT 02/14/2019 BRUEGGEMANN MD, ARIK T Ot Z88.5 ALLERGY STATUS TO NARCOTIC AGENT STATUS 02/14/2019 ARIK CHOE MD Ot Z88.8 ALLERGY STATUS TO OTH DRUG/MEDS/BIOL SUB 02/14/2019 ARIK CHOE MD Ot Z95.0 PRESENCE OF CARDIAC PACEMAKER 02/14/2019 ARIK CHOE MD Ot Z95.1 PRESENCE OF AORTOCORONARY BYPASS GRAFT 02/14/2019 ARIK CHOE MD Ot Z95.5 PRESENCE OF CORONARY ANGIOPLASTY IMPLANT 02/14/2019 ARIK CHOE MD Ot Z99.89 DEPENDENCE ON OTHER ENABLING MACHINES AN 02/16/2019 RYAN LANDON MD Ot 268.9 VITAMIN D DEFICIENCY NOS 02/16/2019 RYAN LANDON MD Ot 51 5 POSTINFLAM PULM FIBROSIS 02/16/2019 RYAN LANDON MD Ot 733.90 BONE CARTILAGE DIS NOS 02/16/2019 RYAN LANDON MD Ot 786.52 PAINFUL RESPIRATION 02/16/2019 RYAN LANDON MD Ot V45.82 PERCUTANEOUS TRANSLUM CORON ANGIOPLASTY 02/16/2019 Ot 185 MALIGN NEOPL PROSTATE 02/16/2019 Ot 592.0 CALC ULUS OF KIDNEY 02/16/2019 ANDREW NATION MD Ot 185 MALIGN NEOPL PROSTATE 02/16/2019 ANDREW NATION MD Ot V72.8 1 RHOW-[id number]-[id number] CARDIOVASCULAR 02/16/2019 ANDREW NATION MD Ot V74.8 SCREEN-BACTERIAL DIS NEC 02/16/2019 TIN SOTO DO Ot 414. 00 CORON ATHEROSCLER NOS TYPE VESSEL, NATIV 02/16/2019 TIN SOTO DO Ot 786. 09 RESPIRATORY ABNORM NEC 02/16/2019 CHETNA WOLF, PERNELL Fermin Ot C61 MALIGNANT NEOPLASM OF PROSTATE 02/16/2019 ANDREW NATION MD Ot N20.0 CALCULUS OF KIDNEY 02/16/2019 ANDREW NATION MD Ot Z09 ENCNTR FOR F/U EXAM AFT TRTMT FOR COND O 02/16/2019 DEMAR WOLF, ZHANNA Suazo Ot R07. 9 CHEST PAIN, UNSPECIFIED 02/16/2019 SAMUEL WOLF FACC, ALI FACP CCDS Ot E66.09 OTHER OBESITY DUE TO EXCESS CALORIES 02/16/2019 SAMUEL WOLF FAC, ALI FACP CCDS Ot E78.4 OTHER HYPERLIPIDEMIA 02/16/2019 SAMUEL WOLF FACC, ALI FACP CCDS Ot I10 ESSENTIAL (PRIMARY) HYPERTENSION 02/16/2019 SAMUEL WOLF FACC, ALI FACP CCDS Ot I48.0 PAROXYSMAL ATRIAL FIBRILLATION 02/16/2019 SAMUEL WOLF FACC, ALI FACP CCDS Ot 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 02/16/2019 SAMUEL WOLF FACC, ALI FACP CCDS Ot R06.09 OTHER FORMS OF DYSPNEA 02/16/2019 SAMUEL WOLF FACC, ALI FACP CCDS Ot R53.83 OTHER FATIGUE 02/16/2019 SAMUEL WOLF FACC, ALI FACP CCDS Ot E66.09 OTHER OBESITY DUE TO EXCESS CALORIES 02/16/2019 SAMUEL WOLF FACC, ALI FACP CCDS Ot E78.4 OTHER HYPERLIPIDEMIA 02/16/2019 SAMUEL WOLF FACC, ALI FACP CCDS Ot I10 ESSENTIAL (PRIMARY) HYPERTENSION 02/16/2019 SAMUEL WOLF [facility], ALI FACP CCDS Ot I48.0 PAROXYSMAL ATRIAL FIBRILLATION 02/16/2019 SAMUEL WOLF [facility], ALI FACP CCDS Ot 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 02/16/2019 SAMUEL WOLF FAC, ALI FACP CCDS Ot R06.09 OTHER FORMS OF DYSPNEA 02/16/2019 SAMUEL WOLF [facility], ALI FACP CCDS Ot R53.83 OTHER FATIGUE 02/16/2019 Kwadwo CARRASCO MD Ot E11 .9 TYPE 2 DIABETES MELLITUS WITHOUT COMPLIC 02/16/2019 Kwadwo CARRASCO MD Ot E66 .8 OTHER OBESITY 02/16/2019 Kwadwo CARRASCO MD Ot E78 .5 HYPERLIPIDEMIA, UNSPECIFIED 02/16/2019 Kwadwo CARRASCO MD Ot G47.33 OBSTRUCTIVE SLEEP APNEA (ADULT) (PEDIATR 02/16/2019 Kwadwo CARRASCO MD Ot I10 ESSENTIAL (PRIMARY) HYPERTENSION 02/16/2019 Kwadwo CARRASCO MD Ot I25.10 ATHSCL HEART DISEASE OF [place] CORONARY 02/16/2019 Kwadwo CARRASCO MD Ot I44.60 UNSPECIFIED FASCICULAR BLOCK 02/16/2019 Kwadwo CARRASCO MD Ot I48 .0 PAROXYSMAL ATRIAL FIBRILLATION 02/16/2019 Kwadwo CARRASCO MD Ot K21 .9 GASTRO-ESOPHAGEAL REFLUX DISEASE WITHOUT 02/16/2019 Kwadwo CARRASCO MD Ot R00 .0 TACHYCARDIA, UNSPECIFIED 02/16/2019 Kwadwo CARRASCO MD Ot R00 .1 BRADYCARDIA, UNSPECIFIED 02/16/2019 Kwadwo CARRASCO MD Ot R53.83 OTHER FATIGUE 02/16/2019 Kwadwo CARRASCO MD Ot Z68.34 BODY MASS INDEX (BMI) 34.0-34.9, ADULT 02/16/2019 Kwadwo CARRASCO MD, Ot Z79.01 ACID TANK LINER (CURRENT) USE OF ANTICOAGULANT 02/16/2019 Kwadwo CARRASCO MD, Ot Z79.899 OTHER [facility] (CURRENT) DRUG THERAPY 02/16/2019 Kwadwo CARRASCO MD, Ot Z87.891 PERSONAL HISTORY OF NICOTINE DEPENDENCE 02/16/2019 Kwadwo CARRASCO MD Ot Z95 .1 PRESENCE OF AORTOCORONARY BYPASS GRAFT 02/16/2019 Kwadwo CARRASCO MD Ot 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 02/16/2019 Kwadwo CARRASCO MD Ot 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 02/16/2019 Kwadwo CARRASCO MD Ot I10 ESSENTIAL (PRIMARY) HYPERTENSION 02/16/2019 Kwadwo CARRASCO MD Ot I48 .0 PAROXYSMAL ATRIAL FIBRILLATION 02/16/2019 Kwadwo CARRASCO MD Ot I77.89 OTHER SPECIFIED DISORDERS OF ARTERIES AN 02/16/2019 Kwadwo CARRASCO MD Ot R06.09 OTHER FORMS OF DYSPNEA 02/16/2019 Kwadwo CARRASCO MD Ot R53.83 OTHER FATIGUE 02/16/2019 BARBI WOLF, RYAN Sotelo Ot R0 5 COUGH 02/16/2019 NAYLA WYNNE APRN Ot M16.0 BILATERAL PRIMARY OSTEOARTHRITIS OF HIP 02/16/2019 NAYLA WYNNE APRN Ot M43.28 FUSION OF SPINE, SACRAL AND SACROCOCCYGE 02/16/2019 NAYLA WYNNE APRN Ot M47.816 SPONDYLOSIS W/O MYELOPATHY OR RADICULOPA 02/16/2019 NAYLA WYNNE PRINTING MACHINE MECHANIC Ot M48.07 SPINAL STENOSIS, LUMBOSACRAL REGION 02/16/2019 NAYLA WYNNE PRINTING MACHINE MECHANIC Ot M53.3 SACROCOCCYGEAL DISORDERS, NOT ELSEWHERE 02/16/2019 [place] ANDERSON APRN Ot E11 .9 TYPE 2 DIABETES MELLITUS WITHOUT COMPLIC 02/16/2019 [place] ANDERSON APRN Ot E78.00 PURE HYPERCHOLESTEROLEMIA, UNSPECIFIED 02/16/2019 [place] ANDERSON APRN Ot F17.210 NICOTINE DEPENDENCE, CIGARETTES, UNCOMPL 02/16/2019 [place] ANDERSON APRN Ot G47.30 SLEEP APNEA, UNSPECIFIED 02/16/2019 [place] ANDERSON APRN Ot I10 ESSENTIAL (PRIMARY) HYPERTENSION 02/16/2019 [place] ANDERSON APRN Ot I25.10 ATHSCL HEART DISEASE OF [place] CORONARY 02/16/2019 [place] ANDERSON APRN Ot I48.91 UNSPECIFIED ATRIAL FIBRILLATION 02/16/2019 [place] ANDERSON APRN Ot K21 .9 GASTRO-ESOPHAGEAL REFLUX DISEASE WITHOUT 02/16/2019 [place] ANDERSON APRN Ot R42 DIZZINESS AND GIDDINESS 02/16/2019 [place] ANDERSON APRN Ot Z79.01 [facility] (CURRENT) USE OF ANTICOAGULANT 02/16/2019 [place] ANDERSON APRN Ot Z79.82 [facility] (CURRENT) USE OF ASPIRIN 02/16/2019 [place] ANDERSON APRN Ot Z79.84 ACID TANK LINER (CURRENT) USE OF ORAL HYPOGLYC 02/16/2019 [place] ANDERSON APRN Ot Z82.49 FAMILY HX OF ISCHEM HEART DIS AND OTH DI 02/16/2019 [place] ANDERSON APRN Ot Z85.46 PERSONAL HISTORY OF MALIGNANT NEOPLASM O 02/16/2019 [place] ANDERSON APRN Ot Z86.73 PRSNL HX OF TIA (TIA), AND CEREB INFRC W 02/16/2019 [place] ANDERSON APRN Ot Z87.19 PERSONAL HISTORY OF OTHER DISEASES OF TH 02/16/2019 [place] ANDERSON APRN Ot Z87.442 PERSONAL HISTORY OF URINARY CALCULI 02/16/2019 [place] ANDERSON APRN Ot Z88 .1 ALLERGY STATUS TO OTHER ANTIBIOTIC AGENT 02/16/2019 [place] ANDERSON APRN Ot Z88 .8 ALLERGY STATUS TO OT DRUG/MEDS/BIOL SUB 02/16/2019 [place] ANDERSON APRN Ot Z95 .0 PRESENCE OF CARDIAC PACEMAKER 02/16/2019 [place] ANDERSON APRN Ot Z95 .1 PRESENCE OF AORTOCORONARY BYPASS GRAFT 02/16/2019 [place] ANDERSON APRN Ot 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 02/16/2019 [place] ANDERSON APRN Ot Z99.89 DEPENDENCE ON OTHER ENABLING MACHINES AN 02/18/2019 ARIK CHOE MD Ot E11.9 TYPE 2 DIABETES MELLITUS WITHOUT COMPLIC 02/18/2019 ARIK CHOE MD Ot E78.00 PURE HYPERCHOLESTEROLEMIA, UNSPECIFIED 02/18/2019 ARIK CHOE MD Ot G47.30 SLEEP APNEA, UNSPECIFIED 02/18/2019 ARIK CHOE MD Ot I10 ESSENTIAL (PRIMARY) HYPERTENSION 02/18/2019 ARIK CHOE MD Ot I25.10 ATHSCL HEART DISEASE OF [place] CORONARY 02/18/2019 ARIK CHOE MD Ot I48.91 UNSPECIFIED ATRIAL FIBRILLATION 02/18/2019 ARIK CHOE MD Ot K21.9 GASTRO-ESOPHAGEAL REFLUX DISEASE WITHOUT 02/18/2019 ARIK CHOE MD Ot R42 DIZZINESS AND GIDDINESS 02/18/2019 ARIK CHOE MD Ot Z79.01 [facility] (CURRENT) USE OF ANTICOAGULANT 02/18/2019 ARIK CHOE MD Ot Z79.82 ACID TANK LINER (CURRENT) USE OF ASPIRIN 02/18/2019 ARIK CHOE MD Ot Z79.84 ACID TANK LINER (CURRENT) USE OF ORAL HYPOGLYC 02/18/2019 ARIK CHOE MD Ot Z82.49 FAMILY HX OF ISCHEM HEART DIS AND OTH DI 02/18/2019 ARIK CHOE MD, Ot Z85.46 PERSONAL HISTORY OF MALIGNANT NEOPLASM O 02/18/2019 ARIK CHOE MD Ot Z86.73 PRSNL HX OF TIA (TIA), AND CEREB INFRC W 02/18/2019 ARIK CHOE MD, Ot Z87.442 PERSONAL HISTORY OF URINARY CALCULI 02/18/2019 ARIK CHOE MD, Ot Z87.891 PERSONAL HISTORY OF NICOTINE DEPENDENCE 02/18/2019 ARIK CHOE MD, Ot Z88.1 ALLERGY STATUS TO OTHER ANTIBIOTIC AGENT 02/18/2019 ARIK CHOE MD, Ot Z88.5 ALLERGY STATUS TO NARCOTIC AGENT STATUS 02/18/2019 ARIK CHOE MD, Ot Z88.8 ALLERGY STATUS TO OTH DRUG/MEDS/BIOL SUB 02/18/2019 ARIK CHOE MD, Ot Z95.0 PRESENCE OF CARDIAC PACEMAKER 02/18/2019 ARIK CHOE MD Ot Z95.1 PRESENCE OF AORTOCORONARY BYPASS GRAFT 02/18/2019 ARIK CHOE MD, Ot Z95.5 PRESENCE OF CORONARY ANGIOPLASTY IMPLANT 02/18/2019 ARIK CHOE MD Ot Z99.89 DEPENDENCE ON OTHER ENABLING MACHINES AN 10/23/2019 Ot 185 MALIGN NEOPL PROSTATE 10/23/2019 Ot 592.0 CALC ULUS OF KIDNEY 10/23/2019 ANDREW NATION MD Ot 185 MALIGN NEOPL PROSTATE 10/23/2019 ANDREW NATION MD Ot V72.8 1 TNSE-[id number] CARDIOVASCULAR 10/23/2019 ANDREW NATION MD, Ot V74.8 SCREEN-BACTERIAL DIS NEC 10/23/2019 TIN SOTO DO Ot 414. 00 CORON ATHEROSCLER NOS TYPE VESSEL, NATIV 10/23/2019 TIN SOTO DO Ot 786. 09 RESPIRATORY ABNORM NEC 10/23/2019 CHETNA WOLF, PERNELL Fermin Ot C61 MALIGNANT NEOPLASM OF PROSTATE 10/23/2019 ANDREW NATION MD Ot N20.0 CALCULUS OF KIDNEY 10/23/2019 ANDREW NATION MD, Ot Z09 ENCNTR FOR F/U EXAM AFT TRTMT FOR COND O 10/23/2019 DEMAR WOLF, ZHANNA Suazo Ot R07. 9 CHEST PAIN, UNSPECIFIED 10/23/2019 SAMUEL WOLF FACC, ALI FACP CCDS Ot E66.09 OTHER OBESITY DUE TO EXCESS CALORIES 10/23/2019 SAMUEL WOLF FAC, ALI FACP CCDS Ot E78.4 OTHER HYPERLIPIDEMIA 10/23/2019 SAMUEL MD FACC, ALI FACP CCDS Ot I10 ESSENTIAL (PRIMARY) HYPERTENSION 10/23/2019 SAMUEL FACC, ALI FACP CCDS Ot I48.0 PAROXYSMAL ATRIAL FIBRILLATION 10/23/2019 SMAUEL FACC, ALI FACP CCDS Ot 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 10/23/2019 SAMUEL FACC, ALI FACP CCDS Ot R06.09 OTHER FORMS OF DYSPNEA 10/23/2019 SAMUEL FACC, ALI FACP CCDS Ot R53.83 OTHER FATIGUE 10/23/2019 SAMUEL FACC, ALI FACP CCDS Ot E66.09 OTHER OBESITY DUE TO EXCESS CALORIES 10/23/2019 SAMUEL WOLF FACC, ALI FACP CCDS Ot E78.4 OTHER HYPERLIPIDEMIA 10/23/2019 SAMULE WOLF FACC, ALI FACP CCDS Ot I10 ESSENTIAL (PRIMARY) HYPERTENSION 10/23/2019 SAMUEL [facility], ALI FACP CCDS Ot I48.0 PAROXYSMAL ATRIAL FIBRILLATION 10/23/2019 SAMUEL [facility], ALI FACP CCDS Ot 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 10/23/2019 SAMUEL [facility], ALI FACP CCDS Ot R06.09 OTHER FORMS OF DYSPNEA 10/23/2019 SAMUEL WOLF [facility], ALI FACP CCDS Ot R53.83 OTHER FATIGUE 10/23/2019 Kwadwo CARRASCO MD Ot E11 .9 TYPE 2 DIABETES MELLITUS WITHOUT COMPLIC 10/23/2019 Kwadwo CARRASCO MD Ot E66 .8 OTHER OBESITY 10/23/2019 Kwadwo CARRASCO MD Ot E78 .5 HYPERLIPIDEMIA, UNSPECIFIED 10/23/2019 Kwadwo CARRASCO MD Ot G47.33 OBSTRUCTIVE SLEEP APNEA (ADULT) (PEDIATR 10/23/2019 Kwadwo CARRASCO MD Ot I10 ESSENTIAL (PRIMARY) HYPERTENSION 10/23/2019 Kwadwo CARRASCO MD Ot I25.10 ATHSCL HEART DISEASE OF [place] CORONARY 10/23/2019 Kwadwo CARRASCO MD Ot I44.60 UNSPECIFIED FASCICULAR BLOCK 10/23/2019 Kwadwo CARRASCO MD Ot I48 .0 PAROXYSMAL ATRIAL FIBRILLATION 10/23/2019 Kwadwo CARRASCO MD Ot K21 .9 GASTRO-ESOPHAGEAL REFLUX DISEASE WITHOUT 10/23/2019 Kwadwo CARRASCO MD Ot R00 .0 TACHYCARDIA, UNSPECIFIED 10/23/2019 Kwadwo CARRASCO MD Ot R00 .1 BRADYCARDIA, UNSPECIFIED 10/23/2019 Kwadwo CARRASCO MD Ot R53.83 OTHER FATIGUE 10/23/2019 Kwadwo CARRASCO MD, Ot Z68.34 BODY MASS INDEX (BMI) 34.0-34.9, ADULT 10/23/2019 Kwadwo CARRASCO MD, Ot Z79.01 ACID TANK LINER (CURRENT) USE OF ANTICOAGULANT 10/23/2019 Kwadwo CARRASCO MD, Ot Z79.899 OTHER FCI (CURRENT) DRUG THERAPY 10/23/2019 Kwadwo CARRASCO MD, Ot Z87.891 PERSONAL HISTORY OF NICOTINE DEPENDENCE 10/23/2019 Kwadwo CARRASCO MD Ot Z95 .1 PRESENCE OF AORTOCORONARY BYPASS GRAFT 10/23/2019 Kwadwo CARRASCO MD Ot 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 10/23/2019 Kwadwo CARRASCO MD Ot 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 10/23/2019 Kwadwo CARRASCO MD Ot I10 ESSENTIAL (PRIMARY) HYPERTENSION 10/23/2019 Kwadwo CARRASCO MD Ot I48 .0 PAROXYSMAL ATRIAL FIBRILLATION 10/23/2019 Kwadwo CARRASCO MD Ot I77.89 OTHER SPECIFIED DISORDERS OF ARTERIES AN 10/23/2019 Kwadwo CARRASCO MD Ot R06.09 OTHER FORMS OF DYSPNEA 10/23/2019 Kwadwo CARRASCO MD Ot R53.83 OTHER FATIGUE 10/23/2019 RYAN LANDON MD Ot R0 5 COUGH 10/23/2019 NAYLA WYNNE APRN Ot M16.0 BILATERAL PRIMARY OSTEOARTHRITIS OF HIP 10/23/2019 NAYLA WYNNE APRN Ot M43.28 FUSION OF SPINE, SACRAL AND SACROCOCCYGE 10/23/2019 NAYLA WYNNE PRINTING MACHINE MECHANIC Ot M47.816 SPONDYLOSIS W/O MYELOPATHY OR RADICULOPA 10/23/2019 NAYLA WYNNE PRINTING MACHINE MECHANIC Ot M48.07 SPINAL STENOSIS, LUMBOSACRAL REGION 10/23/2019 NAYLA WYNNE PRINTING MACHINE MECHANIC Ot M53.3 SACROCOCCYGEAL DISORDERS, NOT ELSEWHERE 10/29/2019 BALDEV WALLACE MD Ot M47.8 16 SPONDYLOSIS W/O MYELOPATHY OR RADICULOPA 11/06/2019 SAMUEL WOLF FACC, ALI FACP CCDS Ot E11.9 TYPE 2 DIABETES MELLITUS WITHOUT COMPLIC 11/06/2019 SAMUEL WOLF FACC, ALI FACP CCDS Ot E78.5 HYPERLIPIDEMIA, UNSPECIFIED 11/06/2019 SAMUEL WOLF FACC, ALI FACP CCDS Ot G47.33 OBSTRUCTIVE SLEEP APNEA (ADULT) (PEDIATR 11/06/2019 SAMUEL WOLF FACC, ALI FACP CCDS Ot I10 ESSENTIAL (PRIMARY) HYPERTENSION 11/06/2019 SAMUEL WOLF FACC, ALI FACP CCDS Ot I25.10 ATHSCL HEART DISEASE OF [place] CORONARY 11/06/2019 SAMUEL WOLF FACC, ALI FACP CCDS Ot I48.0 PAROXYSMAL ATRIAL FIBRILLATION 11/06/2019 SAMUEL WOLF FACC, ALI FACP CCDS Ot I49.5 SICK SINUS SYNDROME 11/06/2019 [facility]EL [facility], ALI FACP CCDS Ot I77.89 OTHER SPECIFIED DISORDERS OF ARTERIES AN 11/06/2019 SAMUEL WOLF FACC, ALI FACP CCDS Ot Z95.1 PRESENCE OF AORTOCORONARY BYPASS GRAFT 11/14/2019 SAMUEL RICHARDC, ALI FACP CCDS Ot E11.9 TYPE 2 DIABETES MELLITUS WITHOUT COMPLIC 11/14/2019 SAMUEL WOLF FACC, ALI FACP CCDS Ot E78.5 HYPERLIPIDEMIA, UNSPECIFIED 11/14/2019 SAMUEL WOLF FACC, ALI FACP CCDS Ot G47.33 OBSTRUCTIVE SLEEP APNEA (ADULT) (PEDIATR 11/14/2019 SAMUEL WOLF FACC, ALI FACP CCDS Ot I10 ESSENTIAL (PRIMARY) HYPERTENSION 11/14/2019 SAMUEL WOLF FACC, ALI FACP CCDS Ot I25.10 ATHSCL HEART DISEASE OF [place] CORONARY 11/14/2019 SAMUEL WOLF FACC, ALI FACP CCDS Ot I48.0 PAROXYSMAL ATRIAL FIBRILLATION 11/14/2019 [facility], ALI FACP CCDS Ot I49.5 SICK SINUS SYNDROME 11/14/2019 [facility], ALI FACP CCDS Ot I65.29 OCCLUSION AND STENOSIS OF UNSPECIFIED CA 11/14/2019 [facility], ALI FACP CCDS Ot Z95.1 PRESENCE OF AORTOCORONARY BYPASS GRAFT 11/27/2019 [facility], ALI FACP CCDS Ot E11.9 TYPE 2 DIABETES MELLITUS WITHOUT COMPLIC 11/27/2019 [facility], ALI FACP CCDS Ot E78.5 HYPERLIPIDEMIA, UNSPECIFIED 11/27/2019 [facility], ALI FACP CCDS Ot G47.33 OBSTRUCTIVE SLEEP APNEA (ADULT) (PEDIATR 11/27/2019 [facility], ALI FACP CCDS Ot I10 ESSENTIAL (PRIMARY) HYPERTENSION 11/27/2019 [facility], ALI FACP CCDS Ot I25.10 ATHSCL HEART DISEASE OF [place] CORONARY 11/27/2019 [facility], ALI FACP CCDS Ot I48.0 PAROXYSMAL ATRIAL FIBRILLATION 11/27/2019 [facility], ALI FACP CCDS Ot I49.5 SICK SINUS SYNDROME 11/27/2019 [facility], ALI FACP CCDS Ot I77.89 OTHER SPECIFIED DISORDERS OF ARTERIES AN 11/27/2019 [facility], ALI FACP CCDS Ot Z95.1 PRESENCE OF AORTOCORONARY BYPASS GRAFT Procedures Code Description Performed By Per [facility] On [id number] [place] ASURE OF CARDIAC SAMPL PRESSURE, L H 11/13/2017 [id number] FL UOROSCOPY OF MULT COR ART USING L OSM 11/13/2017 [id number] FL UOROSCOPY OF MULT COR A GRAFT USING L 11/13/2017 [id number] FL UOROSCOPY OF LEFT HEART USING LOW OSMO 11/13/2017 [id number] FL UOROSCOPY OF L INT MAMM GRAFT USING L 11/13/2017 Results Test Result Range Capillary blood glucose measurement by g lucometer (mass/volume) - 01/29/16 08:18 Capillary blood glucose measurement by glucometer (mas s/volume) 95 mg/dL 70-110 Complete blood count (CBC) with automate d white blood cell (WBC) differential - 04/23/16 15:30 Blood leukocytes automated count (number/volume) 6.5 10*3/uL 4.3-11.0 Blood erythrocytes automated count (number/volume) 4.35 10*6/uL 4.35-5.85 Venous blood hemoglobin measurement (mass/volume) 14.1 g/dL 13.3-17.7 Blood hematocrit (volume fraction) 42 % 40-54 Automated erythrocyte mean corpuscular volume 95 [ foz_us] 80-99 Automated erythrocyte mean corpuscular h emoglobin (mass per erythrocyte) 32 pg 25-34 Automated erythrocyte mean corpuscular h emoglobin concentration measurement (mass/volume) 34 g/dL 32-36 Automated erythrocyte distribution width ratio 14. 2 % 10.0- 14.5 Automated blood platelet count (count/volume) 108 10*3/uL [...] 10*3 1.0-4.0 Blood monocytes automated count (number/volume) 0. 1 10*3 0.0-1.0 Automated eosinophil count 0.0 10*3/uL 0 .0-0.3 Automated blood basophil count (count/volume) 0.0 10*3/uL 0.0-0.1 Comprehensive metabolic panel - 04/23/16 15:30 Serum or plasma sodium measurement (moles/volume) 138 mmol/L 135-145 Serum or plasma potassium measurement (moles/volume) 3.7 mmol/L 3.6-5.0 Serum or plasma chloride measurement (moles/volume) 107 mmol/L 98-107 Carbon dioxide 24 mmol/L 21-32 Serum or plasma anion gap determination (moles/volume) 7 mmol/L 5-14 Serum or plasma urea nitrogen measurement (mass/volume ) 14 mg/dL 7-18 Serum or plasma creatinine measurement (mass/volume) 1.03 mg/dL 0.60-1.30 Serum or plasma urea nitrogen/creatinine mass ratio 14 NRG Serum or plasma creatinine measurement w ith calculation of estimated glomerular filtration rate > NRG Serum or plasma glucose measurement (mass/volume) 158 mg/dL 70-105 Serum or plasma calcium measurement (mass/volume) 9.0 mg/dL 8.5-10.1 Serum or plasma total bilirubin measurement (mass/volu me) 2.9 mg/dL 0.1-1.0 Serum or plasma alkaline phosphatase simon surement (enzymatic activity/volume) 118 U/L 40-136 Serum or plasma aspartate aminotransfera se measurement (enzymatic activity/volume) 390 U/L 5-34 Serum or plasma alanine aminotransferase measurement (enzymatic activity/volume) 211 U/L 0-55 Serum or plasma protein measurement (mass/volume) 6.5 g/dL 6.4-8.2 Serum or plasma albumin measurement (mass/volume) 4.1 g/dL 3.2-4.5 Blood manual differential performed dete ction - 04/23/16 15:30 Blood monocytes/100 leukocytes 5 % NRG Manual blood segmented neutrophils/100 leukocytes 90 % NRG Blood band neutrophils/100 leukocytes 5 % NRG Blood erythrocyte morphology finding identification NORMAL NRG Blood lactic acid measurement (moles/vol ume) - 04/23/16 15:30 Blood lactic acid measurement (moles/volume) 2.3 m mol/L 0.5- 2.0 Bacterial blood culture - 04/23/16 15:30 Bacterial blood culture NG NRG Complete urinalysis with reflex to cultu re - 04/23/16 16:10 Urine color determination WHIT NRG Urine clarity determination SLIGHTLY CLOUDY NRG Urine pH measurement by test strip 5 5-9 Specific gravity of urine by test strip 1.015 1.016-1.022 Urine protein assay by test strip, semi-quantitative 2+ NEGATIVE Urine glucose detection by automated test strip NE GATIVE NEGATIVE Erythrocytes detection in urine sediment by light micr oscopy NEGATIVE NEGATIVE Urine ketones detection by automated test strip NE GATIVE NEGATIVE Urine nitrite detection by test strip NEGATIVE NEGATIVE Urine total bilirubin detection by test strip 1+ NEGATIVE Urine urobilinogen measurement by automated test strip (mass/volume) 4 mg/dL NORMAL Urine leukocyte esterase detection by dipstick 1+ NEGATIVE Automated urine sediment erythrocyte cou nt by microscopy (number/high power field) NONE NRG Automated urine sediment leukocyte count by microscopy (number/high power field) [HPF] NRG Bacteria detection in urine sediment by light microsco py NEGATIVE NRG Squamous epithelial cells detection in u rine sediment by light microscopy 2-5 NRG Crystals detection in urine sediment by light microsco py NONE NRG Casts detection in urine sediment by light microscopy NONE NRG Mucus detection in urine sediment by light microscopy SMALL NRG Complete urinalysis with reflex to culture NO NRG Ammonia - 04/23/16 17:15 Ammonia 27 umol/L 11-32 Bacterial blood culture - 04/23/16 17:15 Bacterial blood culture NG NRG Serum or plasma lactate measurement (mol es/volume) - 04/23/16 17:46 Serum or plasma lactate measurement (moles/volume) 2.6 mmol/L 0.5-2.0 Complete blood count (CBC) with automate d white blood cell (WBC) differential - 04/23/16 19:05 Blood leukocytes automated count (number/volume) 7.5 10*3/uL 4.3-11.0 Blood erythrocytes automated count (number/volume) 3.98 10*6/uL 4.35-5.85 Venous blood hemoglobin measurement (mass/volume) 12.9 g/dL 13.3-17.7 Blood hematocrit (volume fraction) 38 % 40-54 Automated erythrocyte mean corpuscular volume 96 [ foz_us] 80-99 Automated erythrocyte mean corpuscular h emoglobin (mass per erythrocyte) 32 pg 25-34 Automated erythrocyte mean corpuscular h emoglobin concentration measurement (mass/volume) 34 g/dL 32-36 Automated erythrocyte distribution width ratio 14. 2 % 10.0- 14.5 Automated blood platelet count (count/volume) 109 10*3/uL [...] 10*3 1.0-4.0 Blood monocytes automated count (number/volume) 0. 5 10*3 0.0-1.0 Automated eosinophil count 0.0 10*3/uL 0 .0-0.3 Automated blood basophil count (count/volume) 0.0 10*3/uL 0.0-0.1 Blood lactic acid measurement (moles/vol ume) - 04/23/16 23:49 Blood lactic acid measurement (moles/volume) 1.5 m mol/L 0.5- 2.0 Blood lactic acid measurement (moles/vol ume) - 04/24/16 06:25 Blood lactic acid measurement (moles/volume) 1.0 m mol/L 0.5- 2.0 Comprehensive metabolic panel - 04/24/16 06:25 Serum or plasma sodium measurement (moles/volume) 136 mmol/L 135-145 Serum or plasma potassium measurement (moles/volume) 4.0 mmol/L 3.6-5.0 Serum or plasma chloride measurement (moles/volume) 109 mmol/L 98-107 Carbon dioxide 19 mmol/L 21-32 Serum or plasma anion gap determination (moles/volume) 8 mmol/L 5-14 Serum or plasma urea nitrogen measurement (mass/volume ) 18 mg/dL 7-18 Serum or plasma creatinine measurement (mass/volume) 1.07 mg/dL 0.60-1.30 Serum or plasma urea nitrogen/creatinine mass ratio 17 NRG Serum or plasma creatinine measurement w ith calculation of estimated glomerular filtration rate > NRG Serum or plasma glucose measurement (mass/volume) 129 mg/dL 70-105 Serum or plasma calcium measurement (mass/volume) 8.6 mg/dL 8.5-10.1 Serum or plasma total bilirubin measurement (mass/volu me) 2.1 mg/dL 0.1-1.0 Serum or plasma alkaline phosphatase simon surement (enzymatic activity/volume) 83 U/L 40-136 Serum or plasma aspartate aminotransfera se measurement (enzymatic activity/volume) 155 U/L 5-34 Serum or plasma alanine aminotransferase measurement (enzymatic activity/volume) 174 U/L 0-55 Serum or plasma protein measurement (mass/volume) 5.5 g/dL 6.4-8.2 Serum or plasma albumin measurement (mass/volume) 3.4 g/dL 3.2-4.5 Complete blood count (CBC) with automate d white blood cell (WBC) differential - 04/24/16 06:25 Blood leukocytes automated count (number/volume) 6.6 10*3/uL 4.3-11.0 Blood erythrocytes automated count (number/volume) 3.98 10*6/uL 4.35-5.85 Venous blood hemoglobin measurement (mass/volume) 12.8 g/dL 13.3-17.7 Blood hematocrit (volume fraction) 38 % 40-54 Automated erythrocyte mean corpuscular volume 95 [ foz_us] 80-99 Automated erythrocyte mean corpuscular h emoglobin (mass per erythrocyte) 32 pg 25-34 Automated erythrocyte mean corpuscular h emoglobin concentration measurement (mass/volume) 34 g/dL 32-36 Automated erythrocyte distribution width ratio 14. 3 % 10.0- 14.5 Automated blood platelet count (count/volume) 93 1 0*3/uL 130-400 Automated blood platelet mean volume measurement [...] 10*3 1.0-4.0 Blood monocytes automated count (number/volume) 0. 8 10*3 0.0-1.0 Automated eosinophil count 0.0 10*3/uL 0 .0-0.3 Automated blood basophil count (count/volume) 0.0 10*3/uL 0.0-0.1 Blood blood smear finding identification by light micr oscopy YES NRG Complete blood count (CBC) with automate d white blood cell (WBC) differential - 04/25/16 04:50 Blood leukocytes automated count (number/volume) 7.5 10*3/uL 4.3-11.0 Blood erythrocytes automated count (number/volume) 3.97 10*6/uL 4.35-5.85 Venous blood hemoglobin measurement (mass/volume) 12.9 g/dL 13.3-17.7 Blood hematocrit (volume fraction) 38 % 40-54 Automated erythrocyte mean corpuscular volume 96 [ foz_us] 80-99 Automated erythrocyte mean corpuscular h emoglobin (mass per erythrocyte) 33 pg 25-34 Automated erythrocyte mean corpuscular h emoglobin concentration measurement (mass/volume) 34 g/dL 32-36 Automated erythrocyte distribution width ratio 14. 5 % 10.0- 14.5 Automated blood platelet count (count/volume) 108 10*3/uL [...] 10*3 1.0-4.0 Blood monocytes automated count (number/volume) 1. 4 10*3 0.0-1.0 Automated eosinophil count 0.0 10*3/uL 0 .0-0.3 Automated blood basophil count (count/volume) 0.0 10*3/uL 0.0-0.1 Comprehensive metabolic panel - 04/25/16 04:50 Serum or plasma sodium measurement (moles/volume) 138 mmol/L 135-145 Serum or plasma potassium measurement (moles/volume) 4.0 mmol/L 3.6-5.0 Serum or plasma chloride measurement (moles/volume) 109 mmol/L 98-107 Carbon dioxide 20 mmol/L 21-32 Serum or plasma anion gap determination (moles/volume) 9 mmol/L 5-14 Serum or plasma urea nitrogen measurement (mass/volume ) 16 mg/dL 7-18 Serum or plasma creatinine measurement (mass/volume) 0.92 mg/dL 0.60-1.30 Serum or plasma urea nitrogen/creatinine mass ratio 17 NRG Serum or plasma creatinine measurement w ith calculation of estimated glomerular filtration rate > NRG Serum or plasma glucose measurement (mass/volume) 120 mg/dL 70-105 Serum or plasma calcium measurement (mass/volume) 8.4 mg/dL 8.5-10.1 Serum or plasma total bilirubin measurement (mass/volu me) 1.6 mg/dL 0.1-1.0 Serum or plasma alkaline phosphatase simon surement (enzymatic activity/volume) 78 U/L 40-136 Serum or plasma aspartate aminotransfera se measurement (enzymatic activity/volume) 75 U/L 5-34 Serum or plasma alanine aminotransferase measurement (enzymatic activity/volume) 125 U/L 0-55 Serum or plasma protein measurement (mass/volume) 5.9 g/dL 6.4-8.2 Serum or plasma albumin measurement (mass/volume) 3.5 g/dL 3.2-4.5 Blood manual differential performed dete ction - 04/25/16 04:50 Blood monocytes/100 leukocytes 12 % NRG Manual blood segmented neutrophils/100 leukocytes 83 % NRG Manual blood lymphocytes/100 leukocytes 5 % NRG Blood erythrocyte morphology finding identification NORMAL NRG Complete blood count (CBC) with automate d white blood cell (WBC) differential - 04/28/16 06:28 Blood leukocytes automated count (number/volume) 4.0 10*3/uL 4.3-11.0 Blood erythrocytes automated count (number/volume) 4.02 10*6/uL 4.35-5.85 Venous blood hemoglobin measurement (mass/volume) 13.0 g/dL 13.3-17.7 Blood hematocrit (volume fraction) 38 % 40-54 Automated erythrocyte mean corpuscular volume 94 [ foz_us] 80-99 Automated erythrocyte mean corpuscular h emoglobin (mass per erythrocyte) 32 pg 25-34 Automated erythrocyte mean corpuscular h emoglobin concentration measurement (mass/volume) 34 g/dL 32-36 Automated erythrocyte distribution width ratio 14. 7 % 10.0- 14.5 Automated blood platelet count (count/volume) 127 10*3/uL [...] 10*3 1.0-4.0 Blood monocytes automated count (number/volume) 0. 5 10*3 0.0-1.0 Automated eosinophil count 0.0 10*3/uL 0 .0-0.3 Automated blood basophil count (count/volume) 0.0 10*3/uL 0.0-0.1 Comprehensive metabolic panel - 04/28/16 06:28 Serum or plasma sodium measurement (moles/volume) 139 mmol/L 135-145 Serum or plasma potassium measurement (moles/volume) 4.1 mmol/L 3.6-5.0 Serum or plasma chloride measurement (moles/volume) 108 mmol/L 98-107 Carbon dioxide 21 mmol/L 21-32 Serum or plasma anion gap determination (moles/volume) 10 mmol/L 5-14 Serum or plasma urea nitrogen measurement (mass/volume ) 13 mg/dL 7-18 Serum or plasma creatinine measurement (mass/volume) 0.83 mg/dL 0.60-1.30 Serum or plasma urea nitrogen/creatinine mass ratio 16 NRG Serum or plasma creatinine measurement w ith calculation of estimated glomerular filtration rate > NRG Serum or plasma glucose measurement (mass/volume) 131 mg/dL 70-105 Serum or plasma calcium measurement (mass/volume) 9.4 mg/dL 8.5-10.1 Serum or plasma total bilirubin measurement (mass/volu me) 1.2 mg/dL 0.1-1.0 Serum or plasma alkaline phosphatase simon surement (enzymatic activity/volume) 73 U/L 40-136 Serum or plasma aspartate aminotransfera se measurement (enzymatic activity/volume) 37 U/L 5-34 Serum or plasma alanine aminotransferase measurement (enzymatic activity/volume) 63 U/L 0-55 Serum or plasma protein measurement (mass/volume) 6.1 g/dL 6.4-8.2 Serum or plasma albumin measurement (mass/volume) 3.4 g/dL 3.2-4.5 Magnesium - 04/28/16 06:28 Magnesium 2.2 mg/dL 1.8-2.4 THYROID STIMULATING HORMONE - 04/28/16 0 6:28 THYROID STIMULATING HORMONE 1.60 u[iU]/mL 0.35-4.94 Comprehensive metabolic panel - 04/29/16 03:57 Serum or plasma sodium measurement (moles/volume) 140 mmol/L 135-145 Serum or plasma potassium measurement (moles/volume) 4.1 mmol/L 3.6-5.0 Serum or plasma chloride measurement (moles/volume) 109 mmol/L 98-107 Carbon dioxide 19 mmol/L 21-32 Serum or plasma anion gap determination (moles/volume) 12 mmol/L 5-14 Serum or plasma urea nitrogen measurement (mass/volume ) 13 mg/dL 7-18 Serum or plasma creatinine measurement (mass/volume) 0.83 mg/dL 0.60-1.30 Serum or plasma urea nitrogen/creatinine mass ratio 16 NRG Serum or plasma creatinine measurement w ith calculation of estimated glomerular filtration rate > NRG Serum or plasma glucose measurement (mass/volume) 133 mg/dL 70-105 Serum or plasma calcium measurement (mass/volume) 8.9 mg/dL 8.5-10.1 Serum or plasma total bilirubin measurement (mass/volu me) 1.0 mg/dL 0.1-1.0 Serum or plasma alkaline phosphatase simon surement (enzymatic activity/volume) 85 U/L 40-136 Serum or plasma aspartate aminotransfera se measurement (enzymatic activity/volume) 46 U/L 5-34 Serum or plasma alanine aminotransferase measurement (enzymatic activity/volume) 70 U/L 0-55 Serum or plasma protein [...] 5-14 Serum or plasma urea nitrogen measurement (mass/volume ) 13 mg/dL 7-18 Serum or plasma creatinine measurement (mass/volume) 0.82 mg/dL 0.60-1.30 Serum or plasma urea nitrogen/creatinine mass ratio 16 NRG Serum or plasma creatinine measurement w ith calculation of estimated glomerular filtration rate > NRG Serum or plasma glucose measurement (mass/volume) 118 mg/dL 70-105 Serum or plasma calcium measurement (mass/volume) 9.0 mg/dL 8.5-10.1 Serum or plasma total bilirubin measurement (mass/volu me) 0.9 mg/dL 0.1-1.0 Serum or plasma alkaline phosphatase simon surement (enzymatic activity/volume) 85 U/L 40-136 Serum or plasma aspartate aminotransfera se measurement (enzymatic activity/volume) 60 U/L 5-34 Serum or plasma alanine aminotransferase measurement (enzymatic activity/volume) 78 U/L 0-55 Serum or plasma protein [...] 5-14 Serum or plasma urea nitrogen measurement (mass/volume ) 14 mg/dL 7-18 Serum or plasma creatinine measurement (mass/volume) 0.84 mg/dL 0.60-1.30 Serum or plasma urea nitrogen/creatinine mass ratio 17 NRG Serum or plasma creatinine measurement w ith calculation of estimated glomerular filtration rate > NRG Serum or plasma glucose measurement (mass/volume) 116 mg/dL 70-105 Serum or plasma calcium measurement (mass/volume) 9.5 mg/dL 8.5-10.1 Serum or plasma total bilirubin measurement (mass/volu me) 1.3 mg/dL 0.1-1.0 Serum or plasma alkaline phosphatase simon surement (enzymatic activity/volume) 82 U/L 40-136 Serum or plasma aspartate aminotransfera se measurement (enzymatic activity/volume) 73 U/L 5-34 Serum or plasma alanine aminotransferase measurement (enzymatic activity/volume) 94 U/L 0-55 Serum or plasma protein measurement (mass/volume) 6.4 g/dL 6.4-8.2 Serum or plasma albumin measurement (mass/volume) 3.6 g/dL 3.2-4.5 Complete blood count (CBC) with automate d white blood cell (WBC) differential - 03/18/17 19:30 Blood leukocytes automated count (number/volume) 5.0 10*3/uL 4.3-11.0 Blood erythrocytes automated count (number/volume) 4.20 10*6/uL 4.35-5.85 Venous blood hemoglobin measurement (mass/volume) 13.3 g/dL 13.3-17.7 Blood hematocrit (volume fraction) 39 % 40-54 Automated erythrocyte mean corpuscular volume 94 [ foz_us] 80-99 Automated erythrocyte mean corpuscular h emoglobin (mass per erythrocyte) 32 pg 25-34 Automated erythrocyte mean corpuscular h emoglobin concentration measurement (mass/volume) 34 g/dL 32-36 Automated erythrocyte distribution width ratio 13. 6 % 10.0- 14.5 Automated blood platelet count (count/volume) 140 10*3/uL [...] 10*3 1.0-4.0 Blood monocytes automated count (number/volume) 1. 0 10*3 0.0-1.0 Automated eosinophil count 0.1 10*3/uL 0 .0-0.3 Automated blood basophil count (count/volume) 0.0 10*3/uL 0.0-0.1 PT panel in platelet poor plasma by coag ulation assay - 03/18/17 19:30 Prothrombin time (PT) in platelet poor plasma by coagu lation assay 15.0 s 12.2-14.7 INR in platelet poor plasma or blood by coagulation as say 1.2 0.8-1.4 Activated partial thromboplastin time (a PTT) in platelet poor plasma bycoagulation assay - 03/18/17 19:30 Activated partial thromboplastin time (a PTT) in platelet poor plasma bycoagulation assay 31 s 24-35 Comprehensive metabolic panel - 03/18/17 19:30 Serum or plasma sodium measurement (moles/volume) 141 mmol/L 135-145 Serum or plasma potassium measurement (moles/volume) 3.5 mmol/L 3.6-5.0 Serum or plasma chloride measurement (moles/volume) 108 mmol/L 98-107 Carbon dioxide 23 mmol/L 21-32 Serum or plasma anion gap determination (moles/volume) 10 mmol/L 5-14 Serum or plasma urea nitrogen measurement (mass/volume ) 13 mg/dL 7-18 Serum or plasma creatinine measurement (mass/volume) 0.84 mg/dL 0.60-1.30 Serum or plasma urea nitrogen/creatinine mass ratio 15 NRG Serum or plasma creatinine measurement w ith calculation of estimated glomerular filtration rate > NRG Serum or plasma glucose measurement (mass/volume) 105 mg/dL 70-105 Serum or plasma calcium measurement (mass/volume) 9.1 mg/dL 8.5-10.1 Serum or plasma total bilirubin measurement (mass/volu me) 0.8 mg/dL 0.1-1.0 Serum or plasma alkaline phosphatase simon surement (enzymatic activity/volume) 40 U/L 40-136 Serum or plasma aspartate aminotransfera se measurement (enzymatic activity/volume) 19 U/L 5-34 Serum or plasma alanine aminotransferase measurement (enzymatic activity/volume) 18 U/L 0-55 Serum or plasma protein measurement (mass/volume) 6.6 g/dL 6.4-8.2 Serum or plasma albumin measurement (mass/volume) 3.9 g/dL 3.2-4.5 Magnesium - 03/18/17 19:30 Magnesium 2.1 mg/dL 1.8-2.4 Serum or plasma creatine kinase measurem ent (enzymatic activity/volume) - 03/18/17 19:30 Serum or plasma creatine kinase measurem ent (enzymatic activity/volume) 92 U/L 30-200 Serum or plasma creatine kinase MB measu rement (enzymatic activity/volume) - 03/18/17 19:30 Serum or plasma creatine kinase MB measu rement (enzymatic activity/volume) 1.2 ng/mL <6.6 Serum or plasma troponin i.cardiac measu rement (mass/volume) - 03/18/17 19:30 Serum or plasma troponin i.cardiac measurement (mass/v olume) < ng/mL <0.30 Serum or plasma amylase measurement (enz ymatic activity/volume) - 03/18/17 19:30 Serum or plasma amylase measurement (enzymatic activit y/volume) 50 U/L 25-125 Lipase - 03/18/17 19:30 Lipase 21 U/L 8-78 Serum or plasma lithium measurement (mol es/volume) - 03/18/17 19:30 BNP level 133.2 pg/mL <100.0 Complete blood count (CBC) with automate d white blood cell (WBC) differential - 03/19/17 04:25 Blood leukocytes automated count (number/volume) 4.5 10*3/uL 4.3-11.0 Blood erythrocytes automated count (number/volume) 4.10 10*6/uL 4.35-5.85 Venous blood hemoglobin measurement (mass/volume) 12.8 g/dL 13.3-17.7 Blood hematocrit (volume fraction) 39 % 40-54 Automated erythrocyte mean corpuscular volume 94 [ foz_us] 80-99 Automated erythrocyte mean corpuscular h emoglobin (mass per erythrocyte) 31 pg 25-34 Automated erythrocyte mean corpuscular h emoglobin concentration measurement (mass/volume) 33 g/dL 32-36 Automated erythrocyte distribution width ratio 13. 5 % 10.0- 14.5 Automated blood platelet count (count/volume) 136 10*3/uL [...] 10*3 1.0-4.0 Blood monocytes automated count (number/volume) 0. 8 10*3 0.0-1.0 Automated eosinophil count 0.1 10*3/uL 0 .0-0.3 Automated blood basophil count (count/volume) 0.0 10*3/uL 0.0-0.1 Comprehensive metabolic panel - 03/19/17 04:25 Serum or plasma sodium measurement (moles/volume) 142 mmol/L 135-145 Serum or plasma potassium measurement (moles/volume) 3.8 mmol/L 3.6-5.0 Serum or plasma chloride measurement (moles/volume) 111 mmol/L 98-107 Carbon dioxide 22 mmol/L 21-32 Serum or plasma anion gap determination (moles/volume) 9 mmol/L 5-14 Serum or plasma urea nitrogen measurement (mass/volume ) 11 mg/dL 7-18 Serum or plasma creatinine measurement (mass/volume) 0.78 mg/dL 0.60-1.30 Serum or plasma urea nitrogen/creatinine mass ratio 14 NRG Serum or plasma creatinine measurement w ith calculation of estimated glomerular filtration rate > NRG Serum or plasma glucose measurement (mass/volume) 89 mg/dL 70-105 Serum or plasma calcium measurement (mass/volume) 8.6 mg/dL 8.5-10.1 Serum or plasma total bilirubin measurement (mass/volu me) 0.7 mg/dL 0.1-1.0 Serum or plasma alkaline phosphatase simon surement (enzymatic activity/volume) 34 U/L 40-136 Serum or plasma aspartate aminotransfera se measurement (enzymatic activity/volume) 19 U/L 5-34 Serum or plasma alanine aminotransferase measurement (enzymatic activity/volume) 19 U/L 0-55 Serum or plasma protein measurement (mass/volume) 5.9 g/dL 6.4-8.2 Serum or plasma albumin measurement (mass/volume) 3.5 g/dL 3.2-4.5 Serum or plasma phosphate measurement (m ass/volume) - 03/19/17 04:25 Serum or plasma phosphate measurement (mass/volume) 2.7 mg/dL 2.3-4.7 Magnesium - 03/19/17 04:25 Magnesium 2.0 mg/dL 1.8-2.4 Serum or plasma troponin i.cardiac measu rement (mass/volume) - 03/19/17 04:25 Serum or plasma troponin i.cardiac measurement (mass/v olume) < ng/mL <0.30 Myoglobin, serum - 03/19/17 04:25 Myoglobin, serum 76.7 ng/mL 10.0-92.0 Lipid 1996 panel - 03/19/17 04:25 Serum or plasma triglyceride measurement (mass/volume) 123 mg/dL <150 Serum or plasma cholesterol measurement (mass/volume) 157 mg/dL < 200 Serum or plasma cholesterol in HDL measurement (mass/v olume) 33 mg/dL 40-60 Cholesterol in LDL [mass/volume] in serum or plasma by direct assay 110 mg/dL 1-129 Serum or plasma cholesterol in VLDL measurement (mass/ volume) 25 mg/dL 5-40 Capillary blood glucose measurement by g lucometer (mass/volume) - 03/19/17 11:02 Capillary blood glucose measurement by glucometer (mas s/volume) 86 mg/dL 70-110 Serum or plasma troponin i.cardiac measu rement (mass/volume) - 03/19/17 12:47 Serum or plasma troponin i.cardiac measurement (mass/v olume) < ng/mL <0.30 Automated blood complete blood count (he mogram) panel - 06/12/17 11:23 Blood leukocytes automated count (number/volume) 4.5 10*3/uL 4.3-11.0 Blood erythrocytes automated count (number/volume) 4.46 10*6/uL 4.35-5.85 Venous blood hemoglobin measurement (mass/volume) 14.1 g/dL 13.3-17.7 Blood hematocrit (volume fraction) 42 % 40-54 Automated erythrocyte mean corpuscular volume 94 [ foz_us] 80-99 Automated erythrocyte mean corpuscular h emoglobin (mass per erythrocyte) 32 pg 25-34 Automated erythrocyte mean corpuscular h emoglobin concentration measurement (mass/volume) 34 g/dL 32-36 Automated erythrocyte distribution width ratio 13. 8 % 10.0- 14.5 Automated blood platelet count (count/volume) 165 10*3/uL 130-400 Automated blood platelet mean volume measurement 11.7 [foz_us] 7.4-10.4 PT panel in platelet poor plasma by coag ulation assay - 06/12/17 11:23 Prothrombin time (PT) in platelet poor plasma by coagu lation assay 14.9 s 12.2-14.7 INR in platelet poor plasma or blood by coagulation as say 1.2 0.8-1.4 Activated partial thromboplastin time (a PTT) in platelet poor plasma bycoagulation assay - 06/12/17 11:23 Activated partial thromboplastin time (a PTT) in platelet poor plasma bycoagulation assay 29 s 24-35 Comprehensive metabolic panel - 06/12/17 11:23 Serum or plasma sodium measurement (moles/volume) 140 mmol/L 135-145 Serum or plasma potassium measurement (moles/volume) 4.1 mmol/L 3.6-5.0 Serum or plasma chloride measurement (moles/volume) 107 mmol/L 98-107 Carbon dioxide 25 mmol/L 21-32 Serum or plasma anion gap determination (moles/volume) 8 mmol/L 5-14 Serum or plasma urea nitrogen measurement (mass/volume ) 9 mg/dL 7-18 Serum or plasma creatinine measurement (mass/volume) 0.84 mg/dL 0.60-1.30 Serum or plasma urea nitrogen/creatinine mass ratio 11 NRG Serum or plasma creatinine measurement w ith calculation of estimated glomerular filtration rate > NRG Serum or plasma glucose measurement (mass/volume) 103 mg/dL 70-105 Serum or plasma calcium measurement (mass/volume) 9.2 mg/dL 8.5-10.1 Serum or plasma total bilirubin measurement (mass/volu me) 0.8 mg/dL 0.1-1.0 Serum or plasma alkaline phosphatase simon surement (enzymatic activity/volume) 38 U/L 40-136 Serum or plasma aspartate aminotransfera se measurement (enzymatic activity/volume) 19 U/L 5-34 Serum or plasma alanine aminotransferase measurement (enzymatic activity/volume) 20 U/L 0-55 Serum or plasma protein measurement (mass/volume) 6.9 g/dL 6.4-8.2 Serum or plasma albumin measurement (mass/volume) 4.1 g/dL 3.2-4.5 Methicillin resistant Staphylococcus aur eus (MRSA) screening culture - 06/12/17 11:23 Methicillin resistant Staphylococcus aureus (MRSA) scr eening culture NEG NRG Automated blood complete blood count (he mogram) panel - 06/13/17 06:09 Blood leukocytes automated count (number/volume) 7.0 10*3/uL 4.3-11.0 Blood erythrocytes automated count (number/volume) 4.46 10*6/uL 4.35-5.85 Venous blood hemoglobin measurement (mass/volume) 14.1 g/dL 13.3-17.7 Blood hematocrit (volume fraction) 42 % 40-54 Automated erythrocyte mean corpuscular volume 94 [ foz_us] 80-99 Automated erythrocyte mean corpuscular h emoglobin (mass per erythrocyte) 32 pg 25-34 Automated erythrocyte mean corpuscular h emoglobin concentration measurement (mass/volume) 34 g/dL 32-36 Automated erythrocyte distribution width ratio 13. 6 % 10.0- 14.5 Automated blood platelet count (count/volume) 139 10*3/uL [...] 5-14 Serum or plasma urea nitrogen measurement (mass/volume ) 10 mg/dL 7-18 Serum or plasma creatinine measurement (mass/volume) 0.78 mg/dL 0.60-1.30 Serum or plasma urea nitrogen/creatinine mass ratio 13 NRG Serum or plasma creatinine measurement w ith calculation of estimated glomerular filtration rate > NRG Serum or plasma glucose measurement (mass/volume) 105 mg/dL 70-105 Serum or plasma calcium measurement (mass/volume) 8.8 mg/dL 8.5-10.1 Serum or plasma total bilirubin measurement (mass/volu me) 1.0 mg/dL 0.1-1.0 Serum or plasma alkaline phosphatase simon surement (enzymatic activity/volume) 38 U/L 40-136 Serum or plasma aspartate aminotransfera se measurement (enzymatic activity/volume) 19 U/L 5-34 Serum or plasma alanine aminotransferase measurement (enzymatic activity/volume) 14 U/L 0-55 Serum or plasma protein measurement (mass/volume) 6.0 g/dL 6.4-8.2 Serum or plasma albumin measurement (mass/volume) 3.6 g/dL 3.2-4.5 PT panel in platelet poor plasma by coag ulation assay - 07/11/17 16:20 Prothrombin time (PT) in platelet poor plasma by coagu lation assay 16.0 s 12.2-14.7 INR in platelet poor plasma or blood by coagulation as say 1.3 0.8-1.4 Activated partial thromboplastin time (a PTT) in platelet poor plasma bycoagulation assay - 07/11/17 16:20 Activated partial thromboplastin time (a PTT) in platelet poor plasma bycoagulation assay 34 s 24-35 Blood lactic acid measurement (moles/vol ume) - 07/11/17 16:20 Blood lactic acid measurement [...] 5-14 Serum or plasma urea nitrogen measurement (mass/volume ) 12 mg/dL 7-18 Serum or plasma creatinine measurement (mass/volume) 0.82 mg/dL 0.60-1.30 Serum or plasma urea nitrogen/creatinine mass ratio 15 NRG Serum or plasma creatinine measurement w ith calculation of estimated glomerular filtration rate > NRG Serum or plasma glucose measurement (mass/volume) 90 mg/dL 70-105 Serum or plasma calcium measurement (mass/volume) 9.1 mg/dL 8.5-10.1 Serum or plasma total bilirubin measurement (mass/volu me) 1.3 mg/dL 0.1-1.0 Serum or plasma alkaline phosphatase simon surement (enzymatic activity/volume) 44 U/L 40-136 Serum or plasma aspartate aminotransfera se measurement (enzymatic activity/volume) 25 U/L 5-34 Serum or plasma alanine aminotransferase measurement (enzymatic activity/volume) 19 U/L 0-55 Serum or plasma protein measurement (mass/volume) 6.6 g/dL 6.4-8.2 Serum or plasma albumin measurement (mass/volume) 3.7 g/dL 3.2-4.5 Magnesium - 07/11/17 16:20 Magnesium 1.7 mg/dL 1.8-2.4 Complete blood count (CBC) with automate d white blood cell (WBC) differential - 07/11/17 16:20 Blood leukocytes automated count (number/volume) 2.2 10*3/uL 4.3-11.0 Blood erythrocytes automated count (number/volume) 4.06 10*6/uL 4.35-5.85 Venous blood hemoglobin measurement (mass/volume) 12.9 g/dL 13.3-17.7 Blood hematocrit (volume fraction) 38 % 40-54 Automated erythrocyte mean corpuscular volume 94 [ foz_us] 80-99 Automated erythrocyte mean corpuscular h emoglobin (mass per erythrocyte) 32 pg 25-34 Automated erythrocyte mean corpuscular h emoglobin concentration measurement (mass/volume) 34 g/dL 32-36 Automated erythrocyte distribution width ratio 13. 5 % 10.0- 14.5 Automated blood platelet count (count/volume) 116 10*3/uL [...] 10*3 1.0-4.0 Blood monocytes automated count (number/volume) 0. 0 10*3 0.0-1.0 Automated eosinophil count 0.0 10*3/uL 0 .0-0.3 Automated blood basophil count (count/volume) 0.0 10*3/uL 0.0-0.1 Serum or plasma troponin i.cardiac measu rement (mass/volume) - 07/11/17 16:20 Serum or plasma troponin i.cardiac measurement (mass/v olume) < ng/mL <0.30 Myoglobin, serum - 07/11/17 16:20 Myoglobin, serum 116.6 ng/mL 10.0-92.0 Blood manual differential performed dete ction - 07/11/17 16:20 Blood monocytes/100 leukocytes 1 % NRG Manual blood segmented neutrophils/100 leukocytes 88 % NRG Blood band neutrophils/100 leukocytes 0 % NRG Manual blood lymphocytes/100 leukocytes 10 % NRG Manual eosinophils/100 leukocytes in nose 1 % NRG Manual blood basophils/100 leukocytes 0 % NRG Blood erythrocyte morphology finding identification NORMAL NRG Serum or plasma lithium measurement (mol es/volume) - 07/11/17 16:20 BNP level 101.6 pg/mL <100.0 Bacterial blood culture - 07/11/17 16:20 Bacterial blood culture NG NRG Complete urinalysis with reflex to cultu re - 07/11/17 16:40 Urine color determination YELLOW NRG Urine clarity determination SLIGHTLY CLOUDY NRG Urine pH measurement by test strip 5 5-9 Specific gravity of urine by test strip 1.015 1.016-1.022 Urine protein assay by test strip, semi-quantitative 3+ NEGATIVE Urine glucose detection by automated test strip NE GATIVE NEGATIVE Erythrocytes detection in urine sediment by light micr oscopy 4+ NEGATIVE Urine ketones detection by automated test strip NE GATIVE NEGATIVE Urine nitrite detection by test strip NEGATIVE NEGATIVE Urine total bilirubin detection by test strip NEGA TIVE NEGATIVE Urine urobilinogen measurement by automated test strip (mass/volume) NORMAL NORMAL Urine leukocyte esterase detection by dipstick 3+ NEGATIVE Automated urine sediment erythrocyte cou nt by microscopy (number/high power field) [HPF] NRG Automated urine sediment leukocyte count by microscopy (number/high power field) TNTC NRG Bacteria detection in urine sediment by light microsco py NEGATIVE NRG Squamous epithelial cells detection in u rine sediment by light microscopy NONE NRG Crystals detection in urine sediment by light microsco py NONE NRG Casts detection in urine sediment by light microscopy NONE NRG Mucus detection in urine sediment by light microscopy NEGATIVE NRG Complete urinalysis with reflex to culture YES NRG Bacterial urine culture - 07/11/17 16:40 Bacterial urine culture [id number] NRG COLONY COUNT >100,000/ML NRG FTX;REPORTABLE ESBL REPORTED TO DR LANDON 8 NRG URINE CULTURE RESULTS <10,000/ML NRG FREE TEXT ENTRY 2 16:30. COMPLETE SENSITIVITIES RE PORTED NRG FREE TEXT ENTRY 3 07/13/17 8:30 NRG Bacterial susceptibility panel - 8 16:40 Gentamicin susceptibility test by minimum inhibitory c oncentration <= NRG Trimethoprim/sulfamethoxazole susceptibi lity test by minimum inhibitoryconcentration S NRG Ampicillin susceptibility test by minimum inhibitory c oncentration <= NRG Tobramycin susceptibility test by minimum inhibitory c oncentration <= NRG Cefazolin susceptibility test by minimum inhibitory co ncentration <= NRG Ceftriaxone susceptibility test by minimum inhibitory concentration <= NRG Ampicillin/sulbactam susceptibility test by minimum inhibitory concentration <= NRG Piperacillin/tazobactam susceptibility t est by minimum inhibitory concentration S NRG Ciprofloxacin susceptibility test by minimum inhibitor y concentration <= NRG Meropenem susceptibility test by minimum inhibitory co ncentration <= NRG Nitrofurantoin susceptibility test by mi nimum inhibitory concentration 128 NRG Aztreonam susceptibility test by minimum inhibitory co ncentration <= NRG Bacterial susceptibility panel - 8 16:40 Gentamicin susceptibility test by minimum inhibitory c oncentration >= NRG Trimethoprim/sulfamethoxazole susceptibi lity test by minimum inhibitoryconcentration R NRG Ampicillin susceptibility test by minimum inhibitory c oncentration >= NRG Tobramycin susceptibility test by minimum inhibitory c oncentration 8 NRG Cefazolin susceptibility test by minimum inhibitory co ncentration >= NRG Ceftriaxone susceptibility test by minimum inhibitory concentration >= NRG Ampicillin/sulbactam susceptibility test by minimum inhibitory concentration I NRG Ciprofloxacin susceptibility test by minimum inhibitor y concentration >= NRG Meropenem susceptibility test by minimum inhibitory co ncentration <= NRG Nitrofurantoin susceptibility test by mi nimum inhibitory concentration 32 NRG Aztreonam susceptibility test by minimum inhibitory co ncentration R NRG Extended spectrum beta lactamase (ESBL) producing bacteria susceptibility test by minimum inhibitory concentration + NRG Cefepime susceptibility test by minimum inhibitory con centration R NRG Bacterial blood culture - 07/11/17 17:08 Bacterial blood culture NG NRG Influenza virus A and B antigen detectio n - 07/11/17 17:15 FLU RESULT NEGATIVE FOR INFLUENZA A AND B ANTIGENS BY IA NRG Serum or plasma lactate measurement (mol es/volume) - 07/11/17 18:47 Serum or plasma lactate measurement (moles/volume) 1.49 mmol/L 0.50-2.00 Capillary blood glucose measurement by g lucometer (mass/volume) - 07/11/17 21:06 Capillary blood glucose measurement by glucometer (mas s/volume) 100 mg/dL 70-110 Capillary blood glucose measurement by g lucometer (mass/volume) - 07/12/17 05:49 Capillary blood glucose measurement by glucometer (mas s/volume) 148 mg/dL 70-110 Complete blood count (CBC) with automate d white blood cell (WBC) differential - 07/12/17 06:30 Blood leukocytes automated count (number/volume) 8.0 10*3/uL 4.3-11.0 Blood erythrocytes automated count (number/volume) 3.85 10*6/uL 4.35-5.85 Venous blood hemoglobin measurement (mass/volume) 12.2 g/dL 13.3-17.7 Blood hematocrit (volume fraction) 36 % 40-54 Automated erythrocyte mean corpuscular volume 94 [ foz_us] 80-99 Automated erythrocyte mean corpuscular h emoglobin (mass per erythrocyte) 32 pg 25-34 Automated erythrocyte mean corpuscular h emoglobin concentration measurement (mass/volume) 34 g/dL 32-36 Automated erythrocyte distribution width ratio 13. 9 % 10.0- 14.5 Automated blood platelet count (count/volume) 123 10*3/uL [...] 10*3 1.0-4.0 Blood monocytes automated count (number/volume) 0. 5 10*3 0.0-1.0 Automated eosinophil count 0.0 10*3/uL 0 .0-0.3 Automated blood basophil count (count/volume) 0.0 10*3/uL 0.0-0.1 Whole blood basic metabolic panel - 06/26 01/10 06:30 Serum or plasma sodium measurement (moles/volume) 137 mmol/L 135-145 Serum or plasma potassium measurement (moles/volume) 4.3 mmol/L 3.6-5.0 Serum or plasma chloride measurement (moles/volume) 107 mmol/L 98-107 Carbon dioxide 23 mmol/L 21-32 Serum or plasma anion gap determination (moles/volume) 7 mmol/L 5-14 Serum or plasma urea nitrogen measurement (mass/volume ) 18 mg/dL 7-18 Serum or plasma creatinine measurement (mass/volume) 1.40 mg/dL 0.60-1.30 Serum or plasma urea nitrogen/creatinine mass ratio 13 NRG Serum or plasma creatinine measurement w ith calculation of estimated glomerular filtration rate 49 NRG Serum or plasma glucose measurement (mass/volume) 138 mg/dL 70-105 Serum or plasma calcium measurement (mass/volume) 8.3 mg/dL 8.5-10.1 Serum or plasma troponin i.cardiac measu rement (mass/volume) - 07/12/17 06:30 Serum or plasma troponin i.cardiac measurement (mass/v olume) < ng/mL <0.30 Lipid 1996 panel - 07/12/17 06:30 Serum or plasma triglyceride measurement (mass/volume) 103 mg/dL <150 Serum or plasma cholesterol measurement (mass/volume) 131 mg/dL < 200 Serum or plasma cholesterol in HDL measurement (mass/v olume) 26 mg/dL 40-60 Cholesterol in LDL [mass/volume] in serum or plasma by direct assay 87 mg/dL 1-129 Serum or plasma cholesterol in VLDL measurement (mass/ volume) 21 mg/dL 5-40 Capillary blood glucose measurement by g lucometer (mass/volume) - 07/12/17 11:02 Capillary blood glucose measurement by glucometer (mas s/volume) 139 mg/dL 70-110 Capillary blood glucose measurement by g lucometer (mass/volume) - 07/12/17 16:15 Capillary blood glucose measurement by glucometer (mas s/volume) 140 mg/dL 70-110 Capillary blood glucose measurement by g lucometer (mass/volume) - 07/12/17 21:03 Capillary blood glucose measurement by glucometer (mas s/volume) 128 mg/dL 70-110 Capillary blood glucose measurement by g lucometer (mass/volume) - 07/13/17 06:25 Capillary blood glucose measurement by glucometer (mas s/volume) 109 mg/dL 70-110 Influenza virus A and B antigen detectio n - 08/05/17 23:30 FLU RESULT NEGATIVE FOR INFLUENZA A AND B ANTIGENS BY IA NRG Complete blood count (CBC) with automate d white blood cell (WBC) differential - 11/11/17 06:46 Blood leukocytes automated count (number/volume) 4.3 10*3/uL 4.3-11.0 Blood erythrocytes automated count (number/volume) 4.44 10*6/uL 4.35-5.85 Venous blood hemoglobin measurement (mass/volume) 13.7 g/dL 13.3-17.7 Blood hematocrit (volume fraction) 41 % 40-54 Automated erythrocyte mean corpuscular volume 91 [ foz_us] 80-99 Automated erythrocyte mean corpuscular h emoglobin (mass per erythrocyte) 31 pg 25-34 Automated erythrocyte mean corpuscular h emoglobin concentration measurement (mass/volume) 34 g/dL 32-36 Automated erythrocyte distribution width ratio 14. 5 % 10.0- 14.5 Automated blood platelet count (count/volume) 156 10*3/uL [...] 10*3 1.0-4.0 Blood monocytes automated count (number/volume) 0. 7 10*3 0.0-1.0 Automated eosinophil count 0.1 10*3/uL 0 .0-0.3 Automated blood basophil count (count/volume) 0.0 10*3/uL 0.0-0.1 PT panel in platelet poor plasma by coag ulation assay - 11/11/17 06:46 Prothrombin time (PT) in platelet poor plasma by coagu lation assay 15.6 s 12.2-14.7 INR in platelet poor plasma or blood by coagulation as say 1.2 0.8-1.4 Comprehensive metabolic panel - 11/11/17 06:46 Serum or plasma sodium measurement (moles/volume) 141 mmol/L 135-145 Serum or plasma potassium measurement (moles/volume) 3.8 mmol/L 3.6-5.0 Serum or plasma chloride measurement (moles/volume) 109 mmol/L 98-107 Carbon dioxide 21 mmol/L 21-32 Serum or plasma anion gap determination (moles/volume) 11 mmol/L 5-14 Serum or plasma urea nitrogen measurement (mass/volume ) 11 mg/dL 7-18 Serum or plasma creatinine measurement (mass/volume) 0.82 mg/dL 0.60-1.30 Serum or plasma urea nitrogen/creatinine mass ratio 13 NRG Serum or plasma creatinine measurement w ith calculation of estimated glomerular filtration rate > NRG Serum or plasma glucose measurement (mass/volume) 153 mg/dL 70-105 Serum or plasma calcium measurement (mass/volume) 9.6 mg/dL 8.5-10.1 Serum or plasma total bilirubin measurement (mass/volu me) 0.8 mg/dL 0.1-1.0 Serum or plasma alkaline phosphatase simon surement (enzymatic activity/volume) 38 U/L 40-136 Serum or plasma aspartate aminotransfera se measurement (enzymatic activity/volume) 18 U/L 5-34 Serum or plasma alanine aminotransferase measurement (enzymatic activity/volume) 14 U/L 0-55 Serum or plasma protein measurement (mass/volume) 6.6 g/dL 6.4-8.2 Serum or plasma albumin measurement (mass/volume) 4.1 g/dL 3.2-4.5 Serum or plasma troponin i.cardiac measu rement (mass/volume) - 11/11/17 06:46 Serum or plasma troponin i.cardiac measurement (mass/v olume) < ng/mL <0.30 Serum or plasma salicylates measurement (mass/volume) - 11/11/17 06:46 Serum or plasma salicylates measurement (mass/volume) < mg/dL 5.0-20.0 Serum or plasma troponin i.cardiac measu rement (mass/volume) - 11/11/17 12:45 Serum or plasma troponin i.cardiac measurement (mass/v olume) < ng/mL <0.30 Serum or plasma troponin i.cardiac measu rement (mass/volume) - 11/11/17 18:52 Serum or plasma troponin i.cardiac measurement (mass/v olume) < ng/mL <0.30 Complete blood count (CBC) with automate d white blood cell (WBC) differential - 11/12/17 05:40 Blood leukocytes automated count (number/volume) 5.0 10*3/uL 4.3-11.0 Blood erythrocytes automated count (number/volume) 4.33 10*6/uL 4.35-5.85 Venous blood hemoglobin measurement (mass/volume) 13.3 g/dL 13.3-17.7 Blood hematocrit (volume fraction) 39 % 40-54 Automated erythrocyte mean corpuscular volume 91 [ foz_us] 80-99 Automated erythrocyte mean corpuscular h emoglobin (mass per erythrocyte) 31 pg 25-34 Automated erythrocyte mean corpuscular h emoglobin concentration measurement (mass/volume) 34 g/dL 32-36 Automated erythrocyte distribution width ratio 14. 7 % 10.0- 14.5 Automated blood platelet count (count/volume) 150 10*3/uL 130-400 Automated blood platelet mean volume measurement 11.1 [foz_us] 7.4-10.4 Automated blood neutrophils/100 leukocytes 50 % 42-75 Automated blood lymphocytes/100 leukocytes 30 % 12-44 Blood monocytes/100 leukocytes 18 % 0-12 Automated blood eosinophils/100 leukocytes 2 % 0-10 Automated blood basophils/100 leukocytes 0 % 0-10 Blood neutrophils automated count (number/volume) 2.5 10*3 1.8-7.8 Blood lymphocytes automated count (number/volume) 1.5 10*3 1.0-4.0 Blood monocytes automated count (number/volume) 0. 9 10*3 0.0-1.0 Automated eosinophil count 0.1 10*3/uL 0 .0-0.3 Automated blood basophil count (count/volume) 0.0 10*3/uL 0.0-0.1 Comprehensive metabolic panel - 11/12/17 05:40 Serum or plasma sodium measurement (moles/volume) 140 mmol/L 135-145 Serum or plasma potassium measurement (moles/volume) 3.9 mmol/L 3.6-5.0 Serum or plasma chloride measurement (moles/volume) 111 mmol/L 98-107 Carbon dioxide 19 mmol/L 21-32 Serum or plasma anion gap determination (moles/volume) 10 mmol/L 5-14 Serum or plasma urea nitrogen measurement (mass/volume ) 11 mg/dL 7-18 Serum or plasma creatinine measurement (mass/volume) 0.78 mg/dL 0.60-1.30 Serum or plasma urea nitrogen/creatinine mass ratio 14 NRG Serum or plasma creatinine measurement w ith calculation of estimated glomerular filtration rate > NRG Serum or plasma glucose measurement (mass/volume) 120 mg/dL 70-105 Serum or plasma calcium measurement (mass/volume) 8.7 mg/dL 8.5-10.1 Serum or plasma total bilirubin measurement (mass/volu me) 0.9 mg/dL 0.1-1.0 Serum or plasma alkaline phosphatase simon surement (enzymatic activity/volume) 32 U/L 40-136 Serum or plasma aspartate aminotransfera se measurement (enzymatic activity/volume) 16 U/L 5-34 Serum or plasma alanine aminotransferase measurement (enzymatic activity/volume) 14 U/L 0-55 Serum or plasma protein measurement (mass/volume) 5.9 g/dL 6.4-8.2 Serum or plasma albumin measurement (mass/volume) 3.7 g/dL 3.2-4.5 Serum or plasma troponin i.cardiac measu rement (mass/volume) - 11/12/17 05:40 Serum or plasma troponin i.cardiac measurement (mass/v olume) < ng/mL <0.30 Serum or plasma lithium measurement (mol es/volume) - 11/12/17 05:40 BNP level 648.4 pg/mL <100.0 Automated blood complete blood count (he mogram) panel - 11/13/17 06:40 Blood leukocytes automated count (number/volume) 4.8 10*3/uL 4.3-11.0 Blood erythrocytes automated count (number/volume) 4.71 10*6/uL 4.35-5.85 Venous blood hemoglobin measurement (mass/volume) 14.6 g/dL 13.3-17.7 Blood hematocrit (volume fraction) 42 % 40-54 Automated erythrocyte mean corpuscular volume 90 [ foz_us] 80-99 Automated erythrocyte mean corpuscular h emoglobin (mass per erythrocyte) 31 pg 25-34 Automated erythrocyte mean corpuscular h emoglobin concentration measurement (mass/volume) 34 g/dL 32-36 Automated erythrocyte distribution width ratio 14. 8 % 10.0- 14.5 Automated blood platelet count (count/volume) 146 10*3/uL 130-400 Automated blood platelet mean volume measurement 12.0 [foz_us] 7.4-10.4 Whole blood basic metabolic panel - 10/25 07/13 06:40 Serum or plasma sodium measurement (moles/volume) 141 mmol/L 135-145 Serum or plasma potassium measurement (moles/volume) 3.7 mmol/L 3.6-5.0 Serum or plasma chloride measurement (moles/volume) 110 mmol/L 98-107 Carbon dioxide 19 mmol/L 21-32 Serum or plasma anion gap determination (moles/volume) 12 mmol/L 5-14 Serum or plasma urea nitrogen measurement (mass/volume ) 8 mg/dL 7-18 Serum or plasma creatinine measurement (mass/volume) 0.78 mg/dL 0.60-1.30 Serum or plasma urea nitrogen/creatinine mass ratio 10 NRG Serum or plasma creatinine measurement w ith calculation of estimated glomerular filtration rate > NRG Serum or plasma glucose measurement (mass/volume) 118 mg/dL 70-105 Serum or plasma calcium measurement (mass/volume) 9.2 mg/dL 8.5-10.1 Hemoglobin A1c - 11/13/17 06:40 Blood hemoglobin A1C measurement (mass/volume) 6.2 % 4.0-5.6 MEAN BLOOD GLUCOSE 131 % <=126 Automated blood complete blood count (he mogram) panel - 11/14/17 07:10 Blood leukocytes automated count (number/volume) 4.6 10*3/uL 4.3-11.0 Blood erythrocytes automated count (number/volume) 4.68 10*6/uL 4.35-5.85 Venous blood hemoglobin measurement (mass/volume) 14.6 g/dL 13.3-17.7 Blood hematocrit (volume fraction) 43 % 40-54 Automated erythrocyte mean corpuscular volume 91 [ foz_us] 80-99 Automated erythrocyte mean corpuscular h emoglobin (mass per erythrocyte) 31 pg 25-34 Automated erythrocyte mean corpuscular h emoglobin concentration measurement (mass/volume) 34 g/dL 32-36 Automated erythrocyte distribution width ratio 15. 1 % 10.0- 14.5 Automated blood platelet count (count/volume) 150 10*3/uL 130-400 Automated blood platelet mean volume measurement 11.2 [foz_us] 7.4-10.4 Whole blood basic metabolic panel - 10/25 08/13 07:10 Serum or plasma sodium measurement (moles/volume) 140 mmol/L 135-145 Serum or plasma potassium measurement (moles/volume) 4.0 mmol/L 3.6-5.0 Serum or plasma chloride measurement (moles/volume) 112 mmol/L 98-107 Carbon dioxide 20 mmol/L 21-32 Serum or plasma anion gap determination (moles/volume) 8 mmol/L 5-14 Serum or plasma urea nitrogen measurement (mass/volume ) 7 mg/dL 7-18 Serum or plasma creatinine measurement (mass/volume) 0.76 mg/dL 0.60-1.30 Serum or plasma urea nitrogen/creatinine mass ratio 9 NRG Serum or plasma creatinine measurement w ith calculation of estimated glomerular filtration rate > NRG Serum or plasma glucose measurement (mass/volume) 97 mg/dL 70-105 Serum or plasma calcium measurement (mass/volume) 9.1 mg/dL 8.5-10.1 Complete blood count (CBC) with automate d white blood cell (WBC) differential - 02/14/19 17:00 Blood leukocytes automated count (number/volume) 5.8 10*3/uL 4.3-11.0 Blood erythrocytes automated count (number/volume) 4.72 10*6/uL 4.35-5.85 Venous blood hemoglobin measurement (mass/volume) 15.0 g/dL 13.3-17.7 Blood hematocrit (volume fraction) 45 % 40-54 Automated erythrocyte mean corpuscular volume 95 [ foz_us] 80-99 Automated erythrocyte mean corpuscular h emoglobin (mass per erythrocyte) 32 pg 25-34 Automated erythrocyte mean corpuscular h emoglobin concentration measurement (mass/volume) 34 g/dL 32-36 Automated erythrocyte distribution width ratio 14. 7 % 10.0- 14.5 Automated blood platelet count (count/volume) 197 10*3/uL 130-400 Automated blood platelet mean volume measurement 11.7 [foz_us] 7.4-10.4 Automated blood neutrophils/100 leukocytes 44 % 42-75 Automated blood lymphocytes/100 leukocytes 38 % 12-44 Blood monocytes/100 leukocytes 16 % 0-12 Automated blood eosinophils/100 leukocytes 1 % 0-10 Automated blood basophils/100 leukocytes 0 % 0-10 Blood neutrophils automated count (number/volume) 2.6 10*3 1.8-7.8 Blood lymphocytes automated count (number/volume) 2.2 10*3 1.0-4.0 Blood monocytes automated count (number/volume) 1. 0 10*3 0.0-1.0 Automated eosinophil count 0.1 10*3/uL 0 .0-0.3 Automated blood basophil count (count/volume) 0.0 10*3/uL 0.0-0.1 Comprehensive metabolic panel - 02/14/19 17:00 Serum or plasma sodium measurement (moles/volume) 140 mmol/L 135-145 Serum or plasma potassium measurement (moles/volume) 4.1 mmol/L 3.6-5.0 Serum or plasma chloride measurement (moles/volume) 107 mmol/L 98-107 Carbon dioxide 24 mmol/L 21-32 Serum or plasma anion gap determination (moles/volume) 9 mmol/L 5-14 Serum or plasma urea nitrogen measurement (mass/volume ) 12 mg/dL 7-18 Serum or plasma creatinine measurement (mass/volume) 0.86 mg/dL 0.60-1.30 Serum or plasma urea nitrogen/creatinine mass ratio 14 NRG Serum or plasma creatinine measurement w ith calculation of estimated glomerular filtration rate > NRG Serum or plasma glucose measurement (mass/volume) 104 mg/dL 70-105 Serum or plasma calcium measurement (mass/volume) 10.1 mg/dL 8.5-10.1 Serum or plasma total bilirubin measurement (mass/volu me) 1.7 mg/dL 0.1-1.0 Serum or plasma alkaline phosphatase simon surement (enzymatic activity/volume) 44 U/L 40-136 Serum or plasma aspartate aminotransfera se measurement (enzymatic activity/volume) 26 U/L 5-34 Serum or plasma alanine aminotransferase measurement (enzymatic activity/volume) 23 U/L 0-55 Serum or plasma protein measurement (mass/volume) 7.5 g/dL 6.4-8.2 Serum or plasma albumin measurement (mass/volume) 4.6 g/dL 3.2-4.5 Magnesium - 02/14/19 17:00 Magnesium 2.1 mg/dL 1.6-2.4 Serum or plasma troponin i.cardiac measu rement (mass/volume) - 02/14/19 17:00 Serum or plasma troponin i.cardiac measurement (mass/v olume) < ng/mL <0.028 Myoglobin, serum - 02/14/19 17:00 Myoglobin, serum 201.3 ng/mL 10.0-92.0 PT panel in platelet poor plasma by coag ulation assay - 02/14/19 17:00 Prothrombin time (PT) in platelet poor plasma by coagu lation assay 15.8 s 12.2-14.7 INR in platelet poor plasma or blood by coagulation as say 1.2 0.8-1.4 Activated partial thromboplastin time (a PTT) in platelet poor plasma bycoagulation assay - 02/14/19 17:00 Activated partial thromboplastin time (a PTT) in platelet poor plasma bycoagulation assay 34 s 24-35 Serum or plasma lithium measurement (mol es/volume) - 02/14/19 17:00 BNP PT 91.3 pg/mL <100.0 Encounters ACCT No. Visit Date/Time Discharge Status Pt. Type Provider Facility Loc./Unit Complaint [id number] 11/12/2019 07:35:00 23:59:59 CLS Outpatient MICHAEL BAKER MD, FACC, FACP CC DS [facility] CARD CAD [id number] 11/04/2019 13:45:00 23:59:59 CLS Outpatient MICHAEL BAKER MD, FACC, FACP DS [facility] CARD CAD [id number] 10/28/2019 13:10:00 23:59:59 CLS Outpatient BALDEV WALLACE MD [facility] RAD BACK PAIN [id number] 02/16/2019 12:19:00 14:18:00 DIS Emergency [place] ANDERSON APRN [facility] ER DIZZY [id number] 02/14/2019 16:45:00 18:59:00 DIS Emergency ARIK CHOE MD [facility] ER DIZZINESS,AFIB [id number] 11/12/2018 14:13:00 019 23:59:59 CLS Outpatient NAYLA WYNNE APRN [facility] RAD SCIATICA/LOW BACK PAIN [id number] 07/23/2018 09:46:00 019 13:11:00 DIS Outpatient Kwadwo CARRASCO MD [facility] CATH PERSISTENT AFIB [id number] 06/04/2018 12:13:00 018 23:59:59 CLS Outpatient RYAN LANDON MD [facility] RAD COUGH [id number] 05/01/2018 10:51:00 23:59:59 CLS Outpatient Kwadwo CARRASCO MD [facility] CARD CAROTID ARTERY DISEASE, HTN,FATIGUE [id number] 11/11/2017 08:00:00 018 16:20:00 DIS Inpatient JUAN J ALEMAN MD [facility] 4TH CHEST PAIN [id number] 08/05/2017 22:58:00 018 00:40:00 DIS Emergency SEBASTIEN DO, MAGDALENA K Vi a [facility] ER COLD SYMPTOMS [id number] 07/11/2017 17:42:00 018 11:30:00 DIS Inpatient RYAN LANDON MD [facility] 4TH SEPSIS-UTI,CHEST PAIN- ANGINA,HYPOMAGNESEMIA [id number] 06/12/2017 10:43:00 017 20:31:00 DIS Outpatient Kwadwo CARRASCO MD [facility] CATH AF,SIGNIFICANT SYMPTOMA TIC PAUSES [id number] 05/11/2017 07:30:00 017 23:59:59 CLS Outpatient Kwadwo CARRASCO MD [facility] FCI SURVEILLANCE FOR AFIB [id number] 03/18/2017 22:15:00 017 13:07:00 DIS Inpatient RYAN LANDON MD [facility] ICU CHEST PAIN; HYPERTENSIV E URGENCY [id number] 03/09/2017 12:34:00 017 23:59:59 CLS Outpatient SAMUEL WOLF FACC, MICHAEL SANTIAGO CC DS [facility] CARD RAMIREZ R06.09 [id number] 02/28/2017 07:12:00 017 23:59:59 CLS Outpatient MICHAEL BAKER MD, FACC, FACP CC DS [facility] CARD RAMIREZ R06.09 [id number] 07/18/2016 13:24:00 017 15:18:00 DIS Outpatient RYAN LANDON MD [facility] REHAB BACK PAIN; GENERALIZED WEAKNESS; FALLING EPISODES [id number] 05/27/2016 19:01:00 016 06:15:00 DIS Outpatient JAMIL MONTERO APRN [facility] SLEEP ARRHYTHMLAS, EX CESSIVE DAYTIME SLEEPINESS [id number] 04/27/2016 09:15:00 016 11:50:00 DIS Inpatient RYAN LANDON MD [facility] 4TH SWB - FEVER,WEAKNESS [id number] 04/24/2016 10:01:00 016 09:00:00 DIS Inpatient RAFAL DC DO [facility] 4TH FEVER [id number] 03/24/2016 14:48:00 016 23:59:59 CLS Outpatient ZHANNA BENZ MD [facility] RAD CHEST PAIN,UNSPECIFIED [id number] 01/29/2016 07:42:00 016 10:20:00 DIS Outpatient JEFF LOUIS MD [facility] SDC OCCULT POSITIVE STOOLS [id number] 01/27/2016 05:40:00 016 16:01:00 DIS Outpatient JEFF LOUIS MD [facility] PREOP OCCULT POSITIVE STOOLS [id number] 11/17/2015 12:46:00 23:59:59 CLS Outpatient ANDREW NATION MD [facility] RAD STONE [id number] 11/03/2015 05:59:00 016 10:20:00 DIS Outpatient ANDREW NATION MD [facility] SDC RIGHT STONE [id number] 10/30/2015 05:41:00 016 11:06:00 DIS Outpatient ANDREW NATION MD [facility] PREOP RIGHT STONE [id number] 10/28/2015 04:07:00 06:12:00 DIS Emergency SEBASTIEN DO, MAGDALENA sotelo [facility] ER BLOOD IN URINE [id number] 07/01/2015 00:10:00 23:59:59 CLS Preadmit CHETNA WOLF, PERNELL ur[facility] ONC [id number] 04/01/2015 09:27:00 016 00:01:00 DIS Outpatient PERNELL BASILIO MD [facility] ONC [id number] 06/18/2015 23:59:00 23:59:00 CAN Emergency SEBASTIEN DOMAGDALENA [facility] ER CHEST PAIN;A-FIB W/RVR [id number] 03/18/2015 19:50:00 06:45:00 DIS Outpatient TIN SOTO DO [facility] SLEEP ARRHYTHMIAS ISCHEMIC HE ART DISEASE HTN [id number] 02/26/2015 12:33:00 11:35:00 DIS Inpatient JUAN J ALEMAN MD [facility] CSD AFIB, [id number] 01/28/2015 11:40:00 23:59:59 CLS Outpatient TIN SOTO DO [facility] RT DYSPNEA ON EXERCTION,DY SPNEA,CAD [id number] 10/29/2014 08:59:00 00:01:00 DIS Outpatient PERNELL BASILIO MD [facility] ONC [id number] 11/19/2014 17:44:00 18:35:00 DIS Emergency BRUEGGEMANN MD, ARIK T [facility] ER ELEVATED HEART RATE [id number] 10/01/2014 06:00:00 015 11:53:00 DIS Outpatient ANDREW NATION MD [facility] PROSTATE CANCER [id number] 09/24/2014 10:38:00 23:59:59 CLS Outpatient ANDREW NATION MD [facility] PREOP PROSTATE CANCER [id number] 04/21/2014 12:24:00 11:10:00 DIS Inpatient RYAN LANDON MD [facility] 4TH DEHYDRATION [id number] 02/07/2014 19:28:00 20:31:00 DIS Emergency [place] ANDERSON APRN [facility] ER ENLARGED TICK BITE [id number] 11/21/2013 08:26:00 23:59:59 CLS Outpatient RYAN LANDON MD [facility] RAD LOW ALKALINE PHOSPHATE S,CP,CHEST WALL PAIN,VIT D D [id number] 10/08/2013 10:51:00 014 18:01:00 DIS Outpatient SAMUEL WOLF FACC, MICHAEL SANTIAGO CC DS [facility] CATH CP,CAD,HLP [id number] 08/20/2013 12:36:00 014 16:30:00 DIS Outpatient JAVIER BELLO DO [facility] CHEST PAIN [id number] 08/14/2013 07:25:00 014 23:59:59 CLS Outpatient JAVIER BELLO DO [facility] PREOP CHEST PAINS [id number] 04/10/2013 08:56:00 014 00:01:00 DIS Outpatient ANGELITA DUDLEY [facility] CARD PALPITATIONS [id number] 01/06/2013 19:32:00 013 11:50:00 DIS Inpatient RYAN LANDON MD [facility] 4TH FEVER, NEUTROPENIA, POS SIBLE PNEUMONIA [id number] 01/04/2013 17:18:00 23:59:59 CLS Outpatient [id number] 11/23/2012 13:01:00 21:50:00 DIS Outpatient SAMUEL WOLF FACC, MICHAEL SANTIAGO CC DS [facility] CATH CAD,ANGINA,SOB,HTN,DM,HYPERLIPIDEMIA,FATIGUE,CABG, [id number] 11/15/2012 22:43:00 16:00:00 DIS Inpatient RYAN LANDON MD [facility] CSD CHEST PAIN [id number] 10/27/2012 09:58:00 23:59:59 CLS Outpatient [id number] 10/27/2012 20:17:00 21:59:00 DIS Emergency TOSHA BROOKS MD [facility] ER UNCONTROLABLE SHAKING [id number] 03/24/2015 16:13:00 Document Registration [id number] 03/24/2015 16:12:00 Document Registration [id number] 03/24/2015 16:12:00 Document Registration [id number] 03/24/2015 16:12:00 Document Registration [id number] 09/24/2014 11:18:00 Document Registration [id number] 08/22/2014 11:54:00 Document Registration [id number] 07/10/2013 09:00:00 Document Registration [id number] 06/22/2011 13:38:00 Document Registration [id number] 06/08/2011 05:39:00 Document Registration [id number] 06/06/2011 07:41:00 Document Registration [id number] 05/31/2011 14:53:00 Document Registration [id number] 05/23/2011 16:08:00 Document Registration [id number] 05/15/2011 22:45:00 Document Registration [id number] 12/15/2010 11:21:00 Document Registration [id number] 10/12/2010 05:40:00 Document Registration [id number] 10/11/2010 09:02:00 Document Registration [id number] 04/20/2010 11:01:00 Document Registration
[2019-11-29 08:01] LABS: MEAN PLATELET VOLUME 11.8 FL (7.4-10.4); RED CELL DISTRIBUTION WIDTH 14.3 % (10.0-14.5); WHITE BLOOD COUNT 4.8 10^3/uL (4.3-11.0)
[2019-11-29] MEDS ORDERED: SITA100T12 PO (08:08)
[2019-11-29] MEDS ORDERED: SUCR1TAB PO (08:08)
[2019-11-29 08:11] LABS: INR 1.2 (0.8-1.4); PROTHROMBIN TIME PATIENT 15.2 SEC (12.2-14.7)
[2019-11-29 08:16] LABS: ALANINE AMINOTRANSFERASE 17 U/L (0-55); ALBUMIN 4.2 GM/DL (3.2-4.5); ALKALINE PHOSPHATASE 40 U/L (40-136); BILIRUBIN,TOTAL 1.1 MG/DL (0.1-1.0); BUN/CREATININE RATIO 14; CALCIUM 9.5 MG/DL (8.5-10.1); CARBON DIOXIDE 23 MMOL/L (21-32); CHLORIDE 109 MMOL/L (98-107); CHOLESTEROL 94 MG/DL (< 200); CREATININE SERUM 0.99 MG/DL (0.60-1.30); GFR ESTIMATED > 60; GLUCOSE 113 MG/DL (70-105); HDL CHOLESTEROL 32 MG/DL (40-60); SODIUM 141 MMOL/L (135-145); TOTAL PROTEIN 6.7 GM/DL (6.4-8.2); TRIGLYCERIDES 124 MG/DL (<150); VLDL CHOLESTEROL 25 MG/DL (5-40)
[2019-11-29] MEDS ORDERED: MIDAZOLAM 5 MG/5 ML (VERSED) VIAL ONE (08:18)
[2019-11-29] MEDS ORDERED: fentaNYL INJECTION 100 MCG/2 ML AMP ONE (08:18)
--- NOTE | 2019-11-29 09:26 | Cardiac Procedure Note-CS/ASA ---
Pre-Procedure Note Pre-Op Procedure Note H&P Reviewed The H&P was reviewed, patient examined and no changes noted. Date H&P Reviewed: Nov 29, 2019 Time H&P Reviewed: 08:20 Conscious Sedation Pre-Proced Time 08:20 ASA Score 3 For ASA 3 and 4: Consider anesthesia and medical clearance. Also, for patients with a history of failed moderate sedation consider anesthesia. Airway Lungs Heart ASA score ASA 1: a normal healthy patient ASA 2: a patient with a mild systemic disease (mid diabetes, controlled hypertension, obesity ASA 3: a patient with a severe systemic disease that limits activity (angina, COPD, prior Myocardial infarction) ASA 4: a patient with an incapacitating disease that is a constant threat to life (CHF, renal failure) ASA 5: a moribund patient not expected to survive 24 hrs. (ruptured aneurysm) ASA 6: a declared brain- patient whose organs are being harvested. For emergent operations, add the letter E after the classification Mallampati Classification Grade 2 Sedation Plan Analgesia, Amnesia, Plan communicated to team members, Discussed options with patient/fam, Discussed risks with patient/fam The patient is an appropriate candidate to undergo the planned procedure, sedation, and anesthesia. The patient immediately re-assessed prior to indication. MICHAEL BAKER MD FACP FAC CCDS Nov 29, 2019 09:26
--- NOTE | 2019-11-29 09:28 | Discharge Inst-Cardiology ---
Discharge Inst-Cardiac Discharge Medications Continued Medications: Amlodipine Besylate (Amlodipine Besylate) 5 Mg Tablet 5 MG PO DAILY, TAB Apixaban (Eliquis) 5 Mg Tablet 5 MG PO BID, TAB Aspirin (Aspir 81) 81 Mg Tablet.dr 81 MG PO DAILY, TAB Cholecalciferol (Vitamin D3) (Vitamin D3) 1,000 Unit Capsule 1000 UNIT PO BID, CAP Cyanocobalamin (Vitamin B-12) (Vitamin B-12) 1,000 Mcg Tablet.er 1000 MCG PO DAILY, TAB Dutasteride/Tamsulosin HCl (Dutasteride-Tamsulosin 0.5-0.4) 1 Each Cpmp.24hr 1 CAP PO HS, CAP Evolocumab (Repatha Pushtronex) 420 Mg/3.5 Ml Wear.injct 420 MG SQ MONTHLY Furosemide (Furosemide) 20 Mg Tablet 20 MG PO DAILY PRN for SWELLING, TAB Losartan Potassium (Losartan Potassium) 100 Mg Tablet 100 MG PO DAILY, TAB Metoprolol Tartrate (Metoprolol Tartrate) 100 Mg Tablet 100 MG PO BID, TAB Multivit-Min/FA/Lycopene/Lut (Centrum Silver Tablet) 1 Each Tablet 1 TAB PO DAILY, TAB Nitroglycerin (Nitroglycerin) 0.4 Mg Tab.subl 0.4 MG SL UD PRN for CHEST PAIN, TAB Omeprazole (Omeprazole) 20 Mg Capsule.dr 20 MG PO DAILY, CAP Oxybutynin Chloride (Oxybutynin Chloride ER) 15 Mg Tab.er.24 15 MG PO DAILY, TAB Sitagliptin Phosphate (Januvia) 100 Mg Tablet 100 MG PO DAILY, TAB Sucralfate (Sucralfate) 1 Gm Tablet 1 GM PO TID, TAB MICHAEL BAKER MD FACP FAC CCDS Nov 29, 2019 09:28
--- NOTE | 2019-11-29 09:29 | Discharge Inst-Post CATH ---
Discharge Inst-CATH/EP Post Cardiac Cath/EP D/C Inst Follow Up/Plan F/u with Dr Culver in 4 to 6 weeks ACTIVITY * Go Home directly and rest. * Limit activity of the leg (or wrist if it was used) for 7 days including aerobics, swimming, jogging, bicycling, etc. * Restrict stair-climbing for 7 days if possible, if not, climb up with your non-cath leg, then bring together on the same step. * Avoid lifting, pushing, pulling or excessive movement of the affected extremity for 7 days. * Customary sexual activity may be resumed after 2 days-use caution not to use a position that strains or causes pain to the affected extremity. * No driving for 24 hours. * NO SMOKING. * Avoid straining for bowel movements for 7 days. * Gentle walking on level ground is allowed. * Returning to work will depend on the type of procedure and the results. Your doctor will discuss this with you. CALL YOUR DOCTOR FOR ANY OF THE FOLLOWING: *If bleeding from the puncture site occurs- Apply gentle pressure to site with clean cloth and call your doctor or EMS. * If a knot or lump forms under the skin, increases in size, or causes pain. * If bruising appears to be worsening or moving further down your leg instead of disappearing. * Temperature above 101 F. CARE OF YOUR GROIN INCISION; * Bruising or purple discoloration of the skin near the puncture site is common. * You may shower only, no bathtub bathing for 5 days. Be careful to avoid slipping as your leg may feel stiff. * If a closure device was used on your femoral artery, please see the attached guide regarding care of the device and your leg. * Leave dressing on FOR 24 hours. CARE OF YOUR WRIST INCISION; * Bruising or purple discoloration of the skin near the puncture site is common. * You may shower. * DO NOT submerge wrist. * Leave dressing on FOR 24 hours. MICHAEL CULVER MD [facility] CCDS Nov 29, 2019 09:29
[2019-11-29] MEDS ORDERED: PATIENT MAY USE OWN MEDS, ALL PO SCH (09:30)
--- NOTE | 2019-11-29 09:47 | CARDIAC CATHETERIZATION ---
DATE OF SERVICE: 11/29/2019 CARDIAC CATHETERIZATION REPORT The patient is a 79-year-old gentleman who is known to have coronary artery disease and has had coronary artery bypass surgery. He recently had a myocardial perfusion imaging, which indicated some degree of inferolateral ischemia. Cardiac catheterization was carried out today after having obtained an informed consent. DESCRIPTION OF PROCEDURE: He was brought to the cardiac catheterization laboratory in a fasting state. Right groin was prepared and draped in the usual sterile fashion. Lidocaine 1% was used for local anesthesia. Modified Seldinger technique was used to advance a 5-Malawian sheath in right femoral artery. Angiography of the right femoral artery was carried out with sheath 5-Malawian JL4 catheter for left coronary angiography, 5-Malawian JR4 catheter for right coronary angiography, 5-Malawian pigtail catheter was used for left heart catheterization and left ventricular angiography. At the end of the procedure, Mynx was used to achieve hemostasis following sheath removal. HEMODYNAMICS: Left ventricular end-diastolic pressure following coronary angiography was 17 mmHg. There is no significant pressure gradient on pullback across the aortic valve. Ascending aortic pressure was 92/44 with a mean of 62 mmHg. CORONARY ANGIOGRAPHY: Left main coronary artery does not exhibit significant obstructive disease. Left anterior descending artery is occluded in its proximal portion. Left circumflex artery has 60 to 70% proximal stenosis and a fairly long segment. The first obtuse marginal branch is of a very small caliber. Second obtuse marginal branch is occluded in its proximal portion and is bypassed. The right coronary artery is dominant. It has moderate disease in its proximal, mid and distal portions. SAPHENOUS VEIN GRAFT ANGIOGRAPHY: The more cephalic aortocoronary graft is to the second obtuse marginal. It is patent and does not exhibit significant disease. There is good distal flow. The more caudal saphenous vein graft is to a diagonal. This is patent and does not exhibit significant disease and there is good distal flow. LEFT INTERNAL MAMMARY GRAFT ANGIOGRAPHY: Left internal mammary artery graft is patent to the distal left anterior descending and exhibits good flow. LEFT VENTRICULAR ANGIOGRAPHY: Left ventricular angiography was carried out in the right anterior oblique projection. Global left ventricular systolic function is well preserved. Left ventricular ejection fraction approximately 60%. CONCLUSIONS: 1. Coronary artery disease consisting of proximal occlusion of the left anterior descending, moderate to moderately severe disease of the proximal left circumflex, and moderate proximal, mid, and distal disease in the right coronary artery. 2. Patent aortocoronary graft to a diagonal. 3. Patent aortocoronary graft to second obtuse marginal. 4. Patent left internal mammary artery graft to the left anterior descending. 5. Mild to moderate elevation of left ventricular end-diastolic pressure. 6. Normal global left ventricular systolic function with an ejection fraction approximately 60%. DISCUSSION AND RECOMMENDATIONS: Based on results of the study, it appears appropriate to continue a conservative approach. His cardiac risk for noncardiac surgery is estimated to be intermediate and it appears reasonable to proceed with necessary surgery. Job ID: [id number] DocumentID: [id number] Dictated Date: 11/29/2019 09:05:24 Still Operator Batch Or Continuous Date: 11/29/2019 09:47:20 Dictated By: MICHAEL BAKER MD, MA, FACP, FACC, MTDD
== END 2019-11-29 12:30 | disposition home or self-care (01) ==
LOC: CATH 07:09 → SDC 09:16 → CATH 12:30
PROVIDERS: ATTEND Internal Medicine Cardiovascular Disease
DX: I25.118 Atherosclerotic heart disease of native coronary artery with other forms of angina pectoris (principal); I49.5 Sick sinus syndrome; I10 Essential (primary) hypertension; I65.29 Occlusion and stenosis of unspecified carotid artery; I48.19 Other persistent atrial fibrillation; I48.0 Paroxysmal atrial fibrillation; K21.9 Gastro-esophageal reflux disease without esophagitis; G47.33 Obstructive sleep apnea (adult) (pediatric); E66.09 Other obesity due to excess calories; E78.5 Hyperlipidemia, unspecified; E11.9 Type 2 diabetes mellitus without complications; Z88.1 Allergy status to other antibiotic agents; Z68.36 Body mass index [BMI] 36.0-36.9, adult; Z88.8 Allergy status to other drugs, medicaments and biological substances; Z99.89 Dependence on other enabling machines and devices; Z79.01 Long term (current) use of anticoagulants; Z79.82 Long term (current) use of aspirin; Z79.899 Other long term (current) drug therapy; Z95.0 Presence of cardiac pacemaker; Z95.1 Presence of aortocoronary bypass graft; Z90.49 Acquired absence of other specified parts of digestive tract; Z87.891 Personal history of nicotine dependence; Z80.9 Family history of malignant neoplasm, unspecified
CPT/HCPCS: 36415; 80053; 80061; 85027; 85610; 85730; 87081; 93459

== ENCOUNTER → 2019-12-09 | Outpatient (CLI) | payer MEDICARE, BC ==
[~2019-12-09] MED LIST changes: +SITA100T12 PO; +SUCR1TAB PO
== END ==
LOC: LABNPT 06:52
PROVIDERS: ATTEND Orthopaedic Surgery Orthopaedic Surgery of the Spine
DX: Z20.828 Contact with and (suspected) exposure to other viral communicable diseases (principal)
CPT/HCPCS: 87635

== ENCOUNTER → 2020-03-05 | Outpatient (CLI) | payer MEDICARE, BC ==
--- NOTE | 2020-03-05 14:08 | Diagnostic Imaging Report ---
INDICATION: Pre MRI screening. TIME OF EXAM: 01:58 p.m. COMPARISON: Correlation is made with prior chest from 10/28/2019. FINDINGS: There are changes of median sternotomy. A dual-lead left subclavian cardiac pacemaker is in place. No abandoned leads are identified. Calcified nodule in the right base is noted, consistent with a granuloma. There is no infiltrate. No effusion or pneumothorax is seen. IMPRESSION: No evidence of abandoned pacemaker leads. Dictated by: Dictated on workstation # [id number]
--- NOTE | 2020-03-05 17:57 | Diagnostic Imaging Report ---
CLINICAL INDICATION: Patient has chronic low back pain with history of previous lumbar spine surgery three or four months ago. EXAM: MRI of the lumbar spine performed without IV contrast. Sagittal T2, sagittal T1, sagittal T2 fat-sat, and axial T2. COMPARISON: MRI of the lumbar spine dated 10/28/2019. FINDINGS: There is no acute lumbar spine fracture or dislocation. There is Modic type I degenerative signal change involving the L5-S1 level which has progressed. There is stable chronic compression deformities involving the lower endplate of the T11, T12, and L1 vertebra. There are chronic compression deformities of the upper and inferior endplates of the L2 through L5 vertebra. There is no marrow edema. The visualized portions of the distal thoracic spinal cord, conus medullaris, and cauda equina nerve roots are unremarkable. The conus medullaris tip is seen at the L1-L2 intervertebral level. There are interval postoperative changes with L4-L5 and L5-S1 laminotomy changes. L1-L2: Stable moderate bilateral facet arthropathy. There is no significant central spinal canal or neural foramen narrowing. L2-L3: There is a stable mild diffuse disc bulge and moderate bilateral facet arthropathy. There is moderate central canal stenosis again seen. There is stable ipemlzch-kz-ljirit bilateral neural foramen narrowing. L3-L4: There is mild diffuse disc bulge and prominence of posterior epidural fat which has slightly progressed. There is moderate bilateral facet arthropathy. There is moderate central canal stenosis which has slightly progressed in interval. There is stable severe bilateral neural foramen narrowing. L4-L5: Stable diffuse disc bulge with mild loss of disc space height and disc spurs extending into the foraminal regions bilaterally. There is moderate bilateral facet arthropathy/hypertrophy. There is interval slight decompression of the thecal sac with no significant central canal stenosis. There is severe bilateral neural foramen narrowing which has not significantly changed. L5-S1: There is moderate bilateral facet arthropathy again seen. There is partial decompression of thecal sac posteriorly with no significant central canal narrowing. There is severe bilateral neural foramen narrowing which has not significantly changed. IMPRESSION: 1: There are interval postoperative changes with L4-L5 and L5-S1 laminotomy changes and interval decompression of the thecal sac. 2: There is multilevel lumbar spine degenerative disease which has slightly progressed at the L3-L4 level. This is described in detail above. Dictated by: Dictated on workstation # [id number]
== END ==
LOC: RAD 14:00
PROVIDERS: ATTEND Physician Assistant
DX: M47.817 Spondylosis without myelopathy or radiculopathy, lumbosacral region (principal); M51.36 Other intervertebral disc degeneration, lumbar region; M48.07 Spinal stenosis, lumbosacral region; M51.26 Other intervertebral disc displacement, lumbar region; M43.8X5 Other specified deforming dorsopathies, thoracolumbar region; G89.18 Other acute postprocedural pain; Z98.890 Other specified postprocedural states; Z20.828 Contact with and (suspected) exposure to other viral communicable diseases
CPT/HCPCS: 71045; 72148

== ENCOUNTER 2020-08-07 15:03 | Emergency (ER) | payer MEDICARE, BC ==
[~2020-08-07] VITALS: Ht 182.8 cm; Wt 117.9 kg
[~2020-08-07 15:03] MED LIST changes: -AMIO200T4 PO; +AMIO200T6 PO; +AMLO-250 PO; -AMLO5TAB9 PO; -DUTA0.5C17 PO; +DUTA0.5C36 PO; +HYDR-3920 PO; -PANT40TA3 PO; +PANT40TA52 PO
[2020-08-07] MEDS ORDERED: KETOROLAC 30 MG/ML VIAL IVP ONE (15:30)
[2020-08-07] MEDS ORDERED: NS IV 500 ML 500 ML IV SCH (15:30)
[2020-08-07] MEDS ORDERED: ONDANSETRON 4 MG/2 ML (SDV) Z0FRAN IVP ONE (15:30)
[2020-08-07] MEDS ORDERED: fentaNYL INJECTION 100 MCG/2 ML AMP IVP ONE ×2 (15:30→17:00)
[2020-08-07 15:46] LABS: BASOPHILS # (AUTO) 0.1 10^3/uL (0.0-0.1); BASOPHILS % (AUTO) 1 % (0-10); EOSINOPHILS % (AUTO) 1 % (0-10); HEMATOCRIT 45 % (40-54); HEMOGLOBIN 14.6 g/dL (13.3-17.7); LYMPHOCYTES # (AUTO) 1.5 X 10^3 (1.0-4.0); LYMPHOCYTES % (AUTO) 22 % (12-44); MEAN CORPUSCULAR HEMOGLOBIN 32 pg (25-34); MEAN CORPUSCULAR HGB CONC 33 g/dL (32-36); MEAN CORPUSCULAR VOLUME 97 fL (80-99); MEAN PLATELET VOLUME 11.9 fL (9.0-12.2); MONOCYTES % (AUTO) 15 % (0-12); NEUTROPHILS % (AUTO) 60 % (42-75); PLATELET COUNT 289 10^3/uL (130-400); WHITE BLOOD COUNT 6.6 10^3/uL (4.3-11.0)
--- NOTE | 2020-08-07 15:50 | ED GU-Female ---
General Chief Complaint: - Urinary Stated Complaint: R ABD PAIN; BROWN URINE Nursing Triage Note: PT AMB TO TRIAGE WITH COMPLAINT OF RLQ ABD PAIN AND NAUSEA THAT STARTED TODAY. STATES THIS MORNING HE HAD COFFEE COLORED URINE. STATES THINKS HE HAS A KIDNEY STONE. Nursing Sepsis Screen: No Definite Risk Source: patient Exam Limitations: no limitations History of Present Illness Date Seen by Provider: Aug 07, 2020 Time Seen by Provider: 15:30 Initial Comments To ER by private vehicle accompanied by with reports of right lower quadrant abdominal pain that started rather suddenly around 1 PM today. He had some dry heaving in the car on the way here. No fevers or chills. He did notice that he had some dark urine this morning. History of kidney stones and this feels similar. Timing/Duration: constant Severity/Quality: moderate Location: RLQ Radiation: none Activities at Onset: none Prior Genitourinary Problems: none Allergies and Home Medications Allergies Coded Allergies: amiodarone (Unverified Allergy, Unknown, 06/12/17) ciprofloxacin (Verified Adverse Reaction, Mild, HALLUCINATIONS, 02/28/17) clonidine (Verified Adverse Reaction, Mild, HALLUCINATIONS, 02/28/17) Home Medications Amlodipine Besylate 5 Mg Tablet, 5 MG PO DAILY, (Reported) Apixaban 5 Mg Tablet, 5 MG PO BID, (Reported) Aspirin 81 Mg Tablet.dr, 81 MG PO DAILY, (Reported) Cholecalciferol (Vitamin D3) 1,000 Unit Capsule, 1,000 UNIT PO BID, (Reported) Cyanocobalamin (Vitamin B-12) 1,000 Mcg Tablet.er, 1,000 MCG PO DAILY, (Reported) Dutasteride/Tamsulosin HCl 1 Each Cpmp.24hr, 1 CAP PO HS, (Reported) Evolocumab 420 Mg/3.5 Ml Wear.injct, 420 MG SQ MONTHLY, (Reported) Furosemide 20 Mg Tablet, 20 MG PO DAILY PRN for SWELLING, (Reported) Losartan Potassium 100 Mg Tablet, 100 MG PO DAILY, (Reported) Metoprolol Tartrate 100 Mg Tablet, 100 MG PO BID, (Reported) Multivit-Min/FA/Lycopene/Lut 1 Each Tablet, 1 TAB PO DAILY, (Reported) Nitroglycerin 0.4 Mg Tab.subl, 0.4 MG SL UD PRN for CHEST PAIN, (Reported) Omeprazole 20 Mg Capsule.dr, 20 MG PO DAILY, (Reported) Oxybutynin Chloride 15 Mg Tab.er.24, 15 MG PO DAILY, (Reported) Sitagliptin Phosphate 100 Mg Tablet, 100 MG PO DAILY, (Reported) Sucralfate 1 Gm Tablet, 1 GM PO TID, (Reported) Patient Home Medication List Home Medication List Reviewed: Yes Review of Systems Review of Systems Constitutional: see HPI EENTM: see HPI Respiratory: no symptoms reported Cardiovascular: no symptoms reported Gastrointestinal: abdominal pain Genitourinary: no symptoms reported Musculoskeletal: no symptoms reported Skin: no symptoms reported Psychiatric/Neurological: No Symptoms Reported Endocrine: No Symptoms Reported Hematologic/Lymphatic: No Symptoms Reported Past Szbbeub-Ucjkha-Zwfqad Hx Patient Social History Alcohol Use: Denies Use Smoking Status: Former Smoker Type Used: Cigarettes Former Smoker, Quit: Jun 12, 1978 2nd Hand Smoke Exposure: No Recent Infectious Disease Expo: No Recent Hopitalizations: No Immunizations Up To Date Tetanus Booster (TDap): Unknown PED Vaccines UTD: No Date of Pneumonia Vaccine: Mar 26, 2019 Date of Influenza Vaccine: Mar 26, 2019 Seasonal Allergies Seasonal Allergies: Yes Past Medical History Surgeries: Yes (CABG,KIDNEY STONE SX X3,BILAT EYE IMPLANT/CATARACTS, PROSTATE SEED IMPLANTS) CABG, Eye Surgery, Gallbladder Respiratory: Yes Sleep Apnea Currently Using CPAP: Yes Currently Using BIPAP: No Cardiac: Yes Atrial Fibrillation, Coronary Artery Disease, High Cholesterol, Hypertension Neurological: Yes TIA Reproductive Disorders: No Sexually Transmitted Disease: No HIV/AIDS: No Genitourinary: No Kidney Infection, Prostate Problems, Bladder Infection, Kidney Stones Gastrointestinal: No Gastroesophageal Reflux, Chronic Constipation, Polyps Musculoskeletal: Yes (MILD, lyme's disease) Arthritis Endocrine: Yes (Type II) Diabetes, Non-Insulin dep HEENT: Yes (BILATERAL CATARACT SURGERY) Cataract Loss of Vision: Denies Hearing Impairment: Hard of Hearing Cancer: Yes (PROSTATE) Prostate Did You Recieve Any Treatments: Yes What Type of Treatment Did You: Radiation Psychosocial: No Integumentary: No Blood Disorders: No Family Medical History Cardiovascular disease 19 FATHER, Diabetes mellitus G8 SISTER Cancer, Hypertension Physical Exam Vital Signs Vital Signs - First Documented 08/07/20 15:10 Temp 36.4 Pulse 67 Resp 19 B/P (MAP) 167/108 (127) Pulse Ox 96 O2 Delivery Room Air Capillary Refill : Less Than 3 Seconds Height, Weight, BMI Height: 5'11.00" Weight: 250lbs. 0.0oz. [id number]; 35.00 BMI Method:Stated General Appearance: WD/WN, no apparent distress HEENT: PERRL/EOMI, normal ENT inspection Neck: non-tender, full range of motion Respiratory: no respiratory distress, no accessory muscle use Gastrointestinal: normal bowel sounds, soft, tenderness Extremities: normal range of motion, non-tender Neurologic/Psychiatric: alert, normal mood/affect, oriented x 3 Skin: normal color, warm/dry Progress/Results/Core Measures Suspected Sepsis Recent Fever Within 48 Hours: No Infection Criteria Present: None New/Unexplained Altered Menta: No Sepsis Screen: No Definite Risk SIRS Temperature: Pulse: 67 Respiratory Rate: 19 Laboratory Tests 08/07/20 15:39: White Blood Count 6.6 Blood Pressure 167 /108 Mean: 127 Laboratory Tests 08/07/20 15:39: Creatinine 0.86, INR Comment 1.3, Platelet Count 289, Total Bilirubin 1.3H Results/Orders Lab Results Laboratory Tests Test 08/07/20 15:39 Range/Units White Blood Count 6.6 4.3-11.0 10^3/uL Red Blood Count 4.60 4.30-5.52 10^6/uL Hemoglobin 14.6 13.3-17.7 g/dL Hematocrit 45 40-54 % Mean Corpuscular Volume 97 80-99 fL Mean Corpuscular Hemoglobin 32 25-34 pg Mean Corpuscular Hemoglobin Concent 33 32-36 g/dL Red Cell Distribution Width 14.5 10.0-14.5 % Platelet Count 289 130-400 10^3/uL Mean Platelet Volume 11.9 9.0-12.2 fL Immature Granulocyte % (Auto) 1 % Neutrophils (%) (Auto) 60 42-75 % Lymphocytes (%) (Auto) 22 12-44 % Monocytes (%) (Auto) 15 H 0-12 % Eosinophils (%) (Auto) 1 0-10 % Basophils (%) (Auto) 1 0-10 % Neutrophils # (Auto) 4.0 1.8-7.8 X 10^3 Lymphocytes # (Auto) 1.5 1.0-4.0 X 10^3 Monocytes # (Auto) 1.0 0.0-1.0 X 10^3 Eosinophils # (Auto) 0.0 0.0-0.3 10^3/uL Basophils # (Auto) 0.1 0.0-0.1 10^3/uL Immature Granulocyte # (Auto) 0.1 0.0-0.1 10^3/uL Prothrombin Time 16.8 H 12.2-14.7 SEC INR Comment 1.3 0.8-1.4 Sodium Level 136 135-145 MMOL/L Potassium Level 4.1 3.6-5.0 MMOL/L Chloride Level 103 98-107 MMOL/L Carbon Dioxide Level 22 21-32 MMOL/L Anion Gap 11 5-14 MMOL/L Blood Urea Nitrogen 13 7-18 MG/DL Creatinine 0.86 0.60-1.30 MG/DL Estimat Glomerular Filtration Rate > 60 BUN/Creatinine Ratio 15 Glucose Level 98 70-105 MG/DL Calcium Level 9.0 8.5-10.1 MG/DL Corrected Calcium 8.9 8.5-10.1 MG/DL Total Bilirubin 1.3 H 0.1-1.0 MG/DL Aspartate Amino Transf (AST/SGOT) 23 5-34 U/L Alanine Aminotransferase (ALT/SGPT) 18 0-55 U/L Alkaline Phosphatase 41 40-136 U/L Total Protein 6.8 6.4-8.2 GM/DL Albumin 4.1 3.2-4.5 GM/DL My Orders Orders - [place] ANDERSON APRN Cbc With Automated Diff (08/07/20 15:17) Comprehensive Metabolic Panel (08/07/20 15:17) Ua Culture If Indicated (08/07/20 15:17) Protime With Inr (08/07/20 15:17) Ct Abd/Pelvis Wo(Kidney Stone) (08/07/20 15:17) Ns Iv 500 Ml (Sodium Chloride 0.9%) (08/07/20 15:30) Ondansetron Injection (Zofran Injectio (08/07/20 15:30) Fentanyl Injection (Sublimaze Injection (08/07/20 15:30) Ketorolac Injection (Toradol Injection) (08/07/20 15:30) Abdomen/Kub 1view (08/07/20 15:39) Medications Given in ED Current Medications Medications Dose Ordered Sig/Mariajose Route Start Time Stop Time Status Last Admin Dose Admin Fentanyl Citrate 50 mcg ONCE ONCE IVP 08/07/20 15:30 08/07/20 15:31 DC 08/07/20 15:31 50 MCG Ketorolac Tromethamine 15 mg ONCE ONCE IVP 08/07/20 15:30 08/07/20 15:31 DC 08/07/20 15:31 15 MG Ondansetron HCl 4 mg ONCE ONCE IVP 08/07/20 15:30 08/07/20 15:31 DC 08/07/20 15:31 4 MG Vital Signs/I&O 08/07/20 15:10 Temp 36.4 Pulse 67 Resp 19 B/P (MAP) 167/108 (127) Pulse Ox 96 O2 Delivery Room Air Capillary Refill : Less Than 3 Seconds Blood Pressure Mean: 127 Diagnostic Imaging Diagonstic Imaging: CT Comments NAME: VIOLETTA RAY [facility] REC#: [id number] PT STATUS: REG ER : 1940 PHYSICIAN: [place] ANDERSON APRN ADMIT DATE: 08/07/20/ER Signed Date of Exam:08/07/20 CT ABD/PELVIS WO(KIDNEY STONE) EXAMINATION: CT Abdomen Pelvis without contrast. TECHNIQUE: Multiple contiguous axial images were obtained through the abdomen and pelvis without the use of intravenous contrast. All CT scans use one or more of the following dose optimizing techniques: automated exposure control, MA and/or KvP adjustment based on a patient size and exam type, or iterative reconstruction. HISTORY: Right side pain, hematuria. COMPARISON: CT pelvis 11/12/2018. FINDINGS: Lung bases: Bibasilar dependent atelectasis. Solid organs: The liver is normal. The gallbladder is surgically absent. There is no biliary ductal dilation. There is atrophy of the pancreas without ductal dilatation. Calcified granulomas within the spleen. Adrenal glands are normal. There is a 0.4 cm calculus within the distal right ureter resulting in mild right hydronephrosis and hydroureter. Additional nonobstructing right renal calculi measuring up to 0.4 cm. The left kidney is unremarkable without hydronephrosis. Bowel: The stomach and small bowel are normal without obstruction. There is scattered colonic diverticulosis. The appendix is normal. Peritoneum: There is no intraperitoneal free fluid or free air. No suspicious lymphadenopathy. Vasculature: Calcification of the aorta without aneurysm. Musculoskeletal: Degenerative and surgical changes of the spine without suspicious osseous lesion or compression fracture. Pelvis: Multiple radiation beads are present within the prostate gland. The urinary bladder is normal. IMPRESSION: 1. 0.4 cm calculus within the distal right ureter resulting in mild right hydronephrosis and hydroureter. 2. Additional nonobstructing right renal calculi measuring up to 0.4 cm. 3. Colonic diverticulosis without findings of diverticulitis. Dictated by: Dictated on workstation # [id number] Dict: 08/07/20 161 Trans: 08/07/201628 [facility] [id number] Interpreted by: ADRIÁN VELASQUEZ DO Electronically signed by: ADRIÁN VELASQUEZ DO 08/07/209 Departure Impression Primary Impression: Right ureteral calculus Disposition: HOME, SELF-CARE Condition: Stable Departure-Patient Inst. Decision time for Depature: 16:39 Referrals: NICOLE CHRIS MD (PCP) Primary Care Physician Patient Instructions: Kidney Stones in Adults Add. Discharge Instructions: 1. Return to ER for any concerns like uncontrollable pain, fever, vomiting. Take meds as directed. All discharge instructions reviewed with patient and/or family. Voiced understanding. Scripts Tamsulosin HCl (Flomax) 0.4 Mg Cap 0.4 MG PO DAILY, #10 CAP Prov: [place] ANDERSON APRN 08/07/20 Ondansetron (Ondansetron Odt) 8 Mg Tab.rapdis 8 MG PO Q6H PRN for NAUSEA/VOMITING, #14 TAB Prov: [place] ANDERSON APRN 08/07/20 Hydrocodone/Acetaminophen (Hydrocodone-Acetamin 5-325 mg) 1 Each Tablet 1 TAB PO Q4H PRN for PAIN-MODERATE (5-7), #20 TAB Prov: [place] ANDERSON APRN 08/07/20 Cefuroxime Axetil (Cefuroxime) 250 Mg Tablet 250 MG PO BID, #10 TAB Prov: [place] ANDERSON APRN 08/07/20 [place] ANDERSON APRN Aug 07, 2020 15:50
[2020-08-07 15:56] LABS: ALBUMIN 4.1 GM/DL (3.2-4.5); CHLORIDE 103 MMOL/L (98-107); POTASSIUM 4.1 MMOL/L (3.6-5.0); SODIUM 136 MMOL/L (135-145)
[2020-08-07 15:59] LABS: GLUCOSE 98 MG/DL (70-105); TOTAL PROTEIN 6.8 GM/DL (6.4-8.2)
[2020-08-07 16:00] LABS: CARBON DIOXIDE 22 MMOL/L (21-32)
[2020-08-07 16:01] LABS: BILIRUBIN,TOTAL 1.3 MG/DL (0.1-1.0)
[2020-08-07 16:02] LABS: ALKALINE PHOSPHATASE 41 U/L (40-136); CREATININE SERUM 0.86 MG/DL (0.60-1.30); GFR ESTIMATED > 60
[2020-08-07 16:03] LABS: BUN/CREATININE RATIO 15
[2020-08-07 16:05] LABS: ALANINE AMINOTRANSFERASE 18 U/L (0-55)
[2020-08-07 16:06] LABS: INR 1.3 (0.8-1.4); PROTHROMBIN TIME PATIENT 16.8 SEC (12.2-14.7)
--- NOTE | 2020-08-07 16:12 | Diagnostic Imaging Report ---
EXAMINATION: Abdomen 1 view. HISTORY: Right lower abdominal pain. COMPARISON: CT abdomen and pelvis 04/23/2016. FINDINGS: There is moderate amount of gas and stool throughout the colon. Nonobstructive bowel gas pattern. No radiopaque foreign body. The lung bases are clear. The osseous structures are intact. Right upper quadrant cholecystectomy clips are present. Median sternotomy clips are seen. Multiple radiation beads are seen within the pelvis. Normal calcifications are seen within the expected location of the kidneys. IMPRESSION: Moderate stool burden without other acute abnormality in the abdomen. Dictated by: Dictated on workstation # [id number]
--- NOTE | 2020-08-07 16:21 | Diagnostic Imaging Report ---
EXAMINATION: CT Abdomen Pelvis without contrast. TECHNIQUE: Multiple contiguous axial images were obtained through the abdomen and pelvis without the use of intravenous contrast. All CT scans use one or more of the following dose optimizing techniques: automated exposure control, MA and/or KvP adjustment based on a patient size and exam type, or iterative reconstruction. HISTORY: Right side pain, hematuria. COMPARISON: CT pelvis 11/12/2018. FINDINGS: Lung bases: Bibasilar dependent atelectasis. Solid organs: The liver is normal. The gallbladder is surgically absent. There is no biliary ductal dilation. There is atrophy of the pancreas without ductal dilatation. Calcified granulomas within the spleen. Adrenal glands are normal. There is a 0.4 cm calculus within the distal right ureter resulting in mild right hydronephrosis and hydroureter. Additional nonobstructing right renal calculi measuring up to 0.4 cm. The left kidney is unremarkable without hydronephrosis. Bowel: The stomach and small bowel are normal without obstruction. There is scattered colonic diverticulosis. The appendix is normal. Peritoneum: There is no intraperitoneal free fluid or free air. No suspicious lymphadenopathy. Vasculature: Calcification of the aorta without aneurysm. Musculoskeletal: Degenerative and surgical changes of the spine without suspicious osseous lesion or compression fracture. Pelvis: Multiple radiation beads are present within the prostate gland. The urinary bladder is normal. IMPRESSION: 1. 0.4 cm calculus within the distal right ureter resulting in mild right hydronephrosis and hydroureter. 2. Additional nonobstructing right renal calculi measuring up to 0.4 cm. 3. Colonic diverticulosis without findings of diverticulitis. Dictated by: Dictated on workstation # [id number]
[2020-08-07] MEDS ORDERED: ONDA8TAB13 PO ×2 (16:42→17:11)
[2020-08-07] MEDS ORDERED: CEFU250T80 PO ×2 (16:42→17:11)
[2020-08-07] MEDS ORDERED: ACHD5005 PO ×2 (16:42→17:11)
[2020-08-07] MEDS ORDERED: TMSL.4C PO ×2 (16:42→17:11)
[2020-08-07 17:04] LABS: BILIRUBIN,URINE NEGATIVE (NEGATIVE); CLARITY,URINE SL CLOUDY; COLOR,URINE AMBER; GLUCOSE, URINE (UA) NEGATIVE (NEGATIVE); KETONES,URINE NEGATIVE (NEGATIVE); LEUKOCYTE ESTERASE ,URINE NEGATIVE (NEGATIVE); NITRITE,URINE NEGATIVE (NEGATIVE); PROTEIN,URINE TRACE (NEGATIVE)
[2020-08-07 17:08] VITALS: BP 148/89
[2020-08-07 17:12] LABS: AMORPHOUS SEDIMENT,UR MOD AMOR PHOSPHATE /LPF; BACTERIA,URINE TRACE /HPF; RBC,URINE TNTC /HPF
== END 2020-08-07 17:10 | disposition home or self-care (01) ==
LOC: EDUNIT# 15:03 → ER 15:04
DX: N13.2 Hydronephrosis with renal and ureteral calculous obstruction (principal); I48.91 Unspecified atrial fibrillation; I10 Essential (primary) hypertension; I25.10 Atherosclerotic heart disease of native coronary artery without angina pectoris; E78.00 Pure hypercholesterolemia, unspecified; K21.9 Gastro-esophageal reflux disease without esophagitis; E11.9 Type 2 diabetes mellitus without complications; Z88.1 Allergy status to other antibiotic agents; Z88.8 Allergy status to other drugs, medicaments and biological substances; Z85.46 Personal history of malignant neoplasm of prostate; Z86.73 Personal history of transient ischemic attack (TIA), and cerebral infarction without residual deficits; Z95.1 Presence of aortocoronary bypass graft; Z87.891 Personal history of nicotine dependence; Z82.49 Family history of ischemic heart disease and other diseases of the circulatory system; Z83.3 Family history of diabetes mellitus; Z79.01 Long term (current) use of anticoagulants; Z79.82 Long term (current) use of aspirin
CPT/HCPCS: 36415; 74018; 74176; 80053; 81000; 85025; 85610

== ENCOUNTER 2020-08-12 12:52 | Emergency (ER) | payer MEDICARE, BC ==
[~2020-08-12] VITALS: Ht 182.8 cm; Wt 117.9 kg
[~2020-08-12 12:52] MED LIST changes: +ACHD5005 PO; +CEFU250T80 PO; +ONDA8TAB13 PO
--- NOTE | 2020-08-12 13:16 | ED Cardiac General ---
History of Present Illness General Stated Complaint: IRREGULAR HB Source: patient Exam Limitations: no limitations History of Present Illness Date Seen by Provider: Aug 12, 2020 Time Seen by Provider: 13:16 Initial Comments This is a well-appearing 80-year-old male who presents to the ER with complaints of irregular heartbeat and dizziness. States he noted his heart was irregular by palpating his carotid artery. He noted that it would go from "slow to fast." Reports dizziness started this morning. Additionally, he reports feeling "yucky" and a little short of breath. Noted he had some chest pressure yesterday at rest, does not know how long sensation lasted. States he does not have any chest pressure today. He denies fevers, chills, cough, chest pain, nausea, vomiting, diarrhea, abdominal pain. Denies any ill contacts. States he received his first COVID vaccine 3 weeks ago. Allergies and Home Medications Allergies Coded Allergies: Eyxdyll-Hqs-Swq Reductase Inhibitor (Verified Allergy, Mild, 08/13/20) amiodarone (Unverified Allergy, Unknown, 06/12/17) nebivolol (Verified Adverse Reaction, Intermediate, 08/13/20) ciprofloxacin (Verified Adverse Reaction, Mild, HALLUCINATIONS, 02/28/17) clonidine (Verified Adverse Reaction, Mild, HALLUCINATIONS, 02/28/17) Home Medications Amlodipine Besylate 5 Mg Tablet, 5 MG PO DAILY, (Reported) Apixaban 5 Mg Tablet, 5 MG PO BID, (Reported) Aspirin 81 Mg Tablet.dr, 81 MG PO DAILY, (Reported) Cholecalciferol (Vitamin D3) 1,000 Unit Capsule, 1,000 UNIT PO BID, (Reported) Cyanocobalamin (Vitamin B-12) 1,000 Mcg Tablet.er, 1,000 MCG PO DAILY, (Reported) Dutasteride/Tamsulosin HCl 1 Each Cpmp.24hr, 1 CAP PO HS, (Reported) Evolocumab 420 Mg/3.5 Ml Wear.injct, 420 MG SQ MONTHLY, (Reported) Furosemide 20 Mg Tablet, 20 MG PO DAILY PRN for SWELLING, (Reported) Losartan Potassium 100 Mg Tablet, 100 MG PO DAILY, (Reported) Metoprolol Tartrate 100 Mg Tablet, 100 MG PO BID, (Reported) Multivit-Min/FA/Lycopene/Lut 1 Each Tablet, 1 TAB PO DAILY, (Reported) Nitroglycerin 0.4 Mg Tab.subl, 0.4 MG SL UD PRN for CHEST PAIN, (Reported) Omeprazole 20 Mg Capsule.dr, 20 MG PO DAILY, (Reported) Ondansetron 8 Mg Tab.rapdis, 8 MG PO Q6H PRN for NAUSEA/VOMITING Prescribed by: [place] ANDERSON on 08/07/20 1642 Ondansetron 8 Mg Tab.rapdis, 8 MG PO Q6H PRN for NAUSEA/VOMITING Prescribed by: [place] ANDERSON on 08/07/20 1711 Oxybutynin Chloride 15 Mg Tab.er.24, 15 MG PO DAILY, (Reported) Sitagliptin Phosphate 100 Mg Tablet, 100 MG PO DAILY, (Reported) Tamsulosin HCl 0.4 Mg Cap, 0.4 MG PO DAILY Prescribed by: [place] ANDERSON on 08/07/20 171 Patient Home Medication List Home Medication List Reviewed: Yes Review of Systems Review of Systems Constitutional: see HPI EENTM: No Symptoms Reported Respiratory: See HPI Cardiovascular: See HPI Gastrointestinal: No Symptoms Reported Genitourinary: No Symptoms Reported Musculoskeletal: no symptoms reported Skin: no symptoms reported Psychiatric/Neurological: No Symptoms Reported Endocrine: No Symptoms Reported Hematologic/Lymphatic: No Symptoms Reported All Other Systems Reviewed Negative Unless Noted: Yes Past Ezwwyhq-Jthocc-Epnxsa Hx Patient Social History Type Used: Cigarettes Former Smoker, Quit: Jun 12, 1978 2nd Hand Smoke Exposure: No Recent Hopitalizations: No Immunizations Up To Date Tetanus Booster (TDap): Unknown PED Vaccines UTD: No Date of Pneumonia Vaccine: Mar 26, 2019 Date of Influenza Vaccine: Mar 26, 2019 Seasonal Allergies Seasonal Allergies: Yes Past Medical History Surgeries: Yes (CABG,KIDNEY STONE SX X3,BILAT EYE IMPLANT/CATARACTS, PROSTATE SEED IMPLANTS) CABG, Eye Surgery, Gallbladder Respiratory: Yes Sleep Apnea Currently Using CPAP: Yes Currently Using BIPAP: No Cardiac: Yes Atrial Fibrillation, Coronary Artery Disease, High Cholesterol, Hypertension Neurological: Yes TIA Reproductive Disorders: No Sexually Transmitted Disease: No HIV/AIDS: No Genitourinary: No Kidney Infection, Prostate Problems, Bladder Infection, Kidney Stones Gastrointestinal: No Gastroesophageal Reflux, Chronic Constipation, Polyps Musculoskeletal: Yes (MILD, lyme's disease) Arthritis Endocrine: Yes (Type II) Diabetes, Non-Insulin dep HEENT: Yes (BILATERAL CATARACT SURGERY) Cataract Loss of Vision: Denies Hearing Impairment: Hard of Hearing Cancer: Yes (PROSTATE) Prostate Did You Recieve Any Treatments: Yes What Type of Treatment Did You: Radiation Psychosocial: No Integumentary: No Blood Disorders: No Family Medical History Cardiovascular disease 19 FATHER, Diabetes mellitus G8 SISTER Cancer, Hypertension Physical Exam Vital Signs Vital Signs - First Documented 08/12/20 12:55 Pulse 82 Resp 11 B/P (MAP) 141/78 (99) Pulse Ox 96 O2 Delivery Room Air Capillary Refill : Height, Weight, BMI Height: 5'11.00" Weight: 250lbs. 0.0oz. 113.830802zb; 35.00 BMI Method:Stated General Appearance: No Apparent Distress, WD/WN HEENT: PERRL/EOMI, TMs Normal, Normal ENT Inspection, Pharynx Normal, Moist Mucous Membranes Neck: Normal Inspection, Non Tender, Supple Respiratory: Lungs Clear, Normal Breath Sounds, No Accessory Muscle Use Progress/Results/Core Measures Results/Orders Lab Results Laboratory Tests Test 08/12/20 13:10 Range/Units White Blood Count 5.8 4.3-11.0 10^3/uL Red Blood Count 4.60 4.30-5.52 10^6/uL Hemoglobin 14.7 13.3-17.7 g/dL Hematocrit 44 40-54 % Mean Corpuscular Volume 96 80-99 fL Mean Corpuscular Hemoglobin 32 25-34 pg Mean Corpuscular Hemoglobin Concent 33 32-36 g/dL Red Cell Distribution Width 14.2 10.0-14.5 % Platelet Count 312 130-400 10^3/uL Mean Platelet Volume 12.4 H 9.0-12.2 fL Immature Granulocyte % (Auto) 1 % Neutrophils (%) (Auto) 55 42-75 % Lymphocytes (%) (Auto) 27 12-44 % Monocytes (%) (Auto) 15 H 0-12 % Eosinophils (%) (Auto) 1 0-10 % Basophils (%) (Auto) 0 0-10 % Neutrophils # (Auto) 3.2 1.8-7.8 10^3/uL Lymphocytes # (Auto) 1.6 1.0-4.0 10^3/uL Monocytes # (Auto) 0.9 0.0-1.0 10^3/uL Eosinophils # (Auto) 0.1 0.0-0.3 10^3/uL Basophils # (Auto) 0.0 0.0-0.1 10^3/uL Immature Granulocyte # (Auto) 0.1 0.0-0.1 10^3/uL Prothrombin Time 16.3 H 12.2-14.7 SEC INR Comment 1.3 0.8-1.4 Activated Partial Thromboplast Time 31 24-35 SEC Sodium Level 140 135-145 MMOL/L Potassium Level 4.0 3.6-5.0 MMOL/L Chloride Level 107 98-107 MMOL/L Carbon Dioxide Level 22 21-32 MMOL/L Anion Gap 11 5-14 MMOL/L Blood Urea Nitrogen 15 7-18 MG/DL Creatinine 1.02 0.60-1.30 MG/DL Estimat Glomerular Filtration Rate > 60 BUN/Creatinine Ratio 15 Glucose Level 174 H 70-105 MG/DL Calcium Level 9.3 8.5-10.1 MG/DL Corrected Calcium 9.2 8.5-10.1 MG/DL Magnesium Level 1.7 1.6-2.4 MG/DL Total Bilirubin 1.0 0.1-1.0 MG/DL Aspartate Amino Transf (AST/SGOT) 27 5-34 U/L Alanine Aminotransferase (ALT/SGPT) 24 0-55 U/L Alkaline Phosphatase 42 40-136 U/L Myoglobin 71.4 10.0-92.0 NG/ML Troponin I < 0.028 <0.028 NG/ML B-Type Natriuretic Peptide 351.5 H <100.0 PG/ML Total Protein 6.8 6.4-8.2 GM/DL Albumin 4.1 3.2-4.5 GM/DL My Orders Orders - YEIMI CHAUHAN APRN Troponin I (08/12/20 13:28) Chest 1 View, Ap/Pa Only (08/12/20 13:28) Ed Iv/Invasive Line Start (08/12/20 13:28) Monitor-Rhythm Ecg Trace Only (08/12/20 13:28) Cbc With Automated Diff (08/12/20 13:28) Magnesium (08/12/20 13:28) Ekg Tracing (08/12/20 13:28) Comprehensive Metabolic Panel (08/12/20 13:28) Myoglobin Serum (08/12/20 13:28) Protime With Inr (08/12/20 13:28) Partial Thromboplastin Time (08/12/20 13:28) O2 (08/12/20 13:28) BNP (08/12/20 13:28) Abdomen/Kub 1view (08/12/20 14:51) Vital Signs/I&O 08/12/20 08/12/20 08/12/20 12:55 14:23 15:32 Pulse 82 65 71 75 80 Resp 11 14 B/P (MAP) 141/78 (99) 110/64 (79) 137/68 106/67 (80) 104/58 (73) Pulse Ox 96 96 O2 Delivery Room Air Room Air Progress Progress Note : Progress Note Pt. examined and in no acute distress. EKG afib, rate controlled. Labs and CXR reviewed and show NAD. Discussed case with Dr. Culver with cardiology, pt. to follow up tomorrow at 1450 in his office. Orders placed for UA, as he was noted to have kidney stone on previous visit 08/07/20. This could very well be contributory to his symptoms. Called Dr. Hewitt with urology for follow up. Requested patient receive KUB and to present to his office once discharged from ED. Patient discharged and to present to Dr. Hewitt office. Will obtain UA at Dr. Hewitt office. Reviewed discharge plan and he his agreeable with plan. Initial ECG Impression Date: Aug 12, 2020 Initial ECG Impression Time: 13:07 Initial ECG Rate: 88 Initial ECG Rhythm: A Fib/Flutter Diagnostic Imaging Diagonstic Imaging: Xray Plain Films/CT/US/NM/MRI: chest Comments NAME: VIOLETTA RAY [facility] REC#: [id number] PT STATUS: REG ER : 1940 PHYSICIAN: YEIMI CHAUHAN APRN ADMIT DATE: 08/12/20/ER Draft Date of Exam:08/12/20 CHEST 1 VIEW, AP/PA ONLY INDICATION: Chest pain COMPARISON: 03/05/2020. FINDINGS: Single frontal view of the chest demonstrates normal heart size and pulmonary vascularity. The lungs are well aerated and clear. No large pleural effusion or pneumothorax is seen. The visualized osseous structures show no acute abnormalities. Sternotomy wires and left-sided dual-lead pacemaker are noted. IMPRESSION: 1. No acute cardiopulmonary process. Dictated on workstation # [id number] Dict: 08/12/20 1350 Trans: 08/12/20 1353 [facility] [id number] Interpreted by: PATRICIA ROGERS MD Electronically signed by: [place] [facility]: Xray Plain Films/CT/US/NM/MRI: abdomen Comments NAME: VIOLETTA RAY [facility] REC#: [id number] PT STATUS: DEP ER : 1940 PHYSICIAN: YEIMI CHAUHAN ENVIRONMENTAL SCIENCE TECHNICIAN ADMIT DATE: 08/12/20/ER Signed Date of Exam:08/12/20 ABDOMEN/KUB 1VIEW INDICATION: Flank pain. COMPARISON: 08/07/2020 FINDINGS: Two supine radiographic views of the abdomen were obtained and demonstrate nondistended loops of small bowel. There is no large collection of free peritoneal air. Moderate air and stool are seen scattered throughout the colon. No unexpected extraosseous calcifications or radiopaque foreign bodies are seen. Bony structures show no gross acute abnormalities. IMPRESSION: 1. Nonobstructed small bowel gas pattern. 2. Moderate colonic air and stool. Please correlate for constipation. Dictated by: Dictated on workstation # [id number] Dict: 08/12/20 1521 Trans: 08/13/20 0834 [facility] [id number] Interpreted by: PATRICIA ROGERS MD Electronically signed by: PATRICIA ROGERS MD 08/13/20 0834 Departure Communication (Admissions) Time/Spoke to Consulting Phy: 14:[address] Culver at this time. Impression Primary Impression: Atrial fibrillation with controlled ventricular rate Disposition: 01 HOME, SELF-CARE Condition: Stable/Unchanged Departure-Patient Inst. Decision time for Depature: 14:42 Referrals: RYAN LANDON MD (PCP/Family) Primary Care Physician Patient Instructions: Atrial Fibrillation Add. Discharge Instructions: Plan: Follow up with Dr. Culver at 2:50 pm 08/13/2020 Keep follow up with Dr. Hewitt this afternoon. Return to ER if you have any new, concerning, or worsening symptoms. YEIMI CHAUHAN ENVIRONMENTAL SCIENCE TECHNICIAN Aug 12, 2020 13:16
[2020-08-12 13:36] LABS: BASOPHILS % (AUTO) 0 % (0-10); EOSINOPHILS # (AUTO) 0.1 10^3/uL (0.0-0.3); EOSINOPHILS % (AUTO) 1 % (0-10); HEMATOCRIT 44 % (40-54); HEMOGLOBIN 14.7 g/dL (13.3-17.7); LYMPHOCYTES # (AUTO) 1.6 10^3/uL (1.0-4.0); LYMPHOCYTES % (AUTO) 27 % (12-44); MEAN CORPUSCULAR HEMOGLOBIN 32 pg (25-34); MEAN CORPUSCULAR HGB CONC 33 g/dL (32-36); MEAN CORPUSCULAR VOLUME 96 fL (80-99); MEAN PLATELET VOLUME 12.4 fL (9.0-12.2); MONOCYTES # (AUTO) 0.9 10^3/uL (0.0-1.0); MONOCYTES % (AUTO) 15 % (0-12); NEUTROPHILS # (AUTO) 3.2 10^3/uL (1.8-7.8); NEUTROPHILS % (AUTO) 55 % (42-75); PLATELET COUNT 312 10^3/uL (130-400); WHITE BLOOD COUNT 5.8 10^3/uL (4.3-11.0)
[2020-08-12 13:47] LABS: INR 1.3 (0.8-1.4); PROTHROMBIN TIME PATIENT 16.3 SEC (12.2-14.7)
[2020-08-12 13:48] LABS: ALBUMIN 4.1 GM/DL (3.2-4.5); CHLORIDE 107 MMOL/L (98-107); SODIUM 140 MMOL/L (135-145)
[2020-08-12 13:49] LABS: CALCIUM 9.3 MG/DL (8.5-10.1)
[2020-08-12 13:50] LABS: GLUCOSE 174 MG/DL (70-105); TOTAL PROTEIN 6.8 GM/DL (6.4-8.2)
[2020-08-12 13:51] LABS: CARBON DIOXIDE 22 MMOL/L (21-32)
--- NOTE | 2020-08-12 13:53 | Diagnostic Imaging Report ---
INDICATION: Chest pain COMPARISON: 03/05/2020. FINDINGS: Single frontal view of the chest demonstrates normal heart size and pulmonary vascularity. The lungs are well aerated and clear. No large pleural effusion or pneumothorax is seen. The visualized osseous structures show no acute abnormalities. Sternotomy wires and left-sided dual-lead pacemaker are noted. IMPRESSION: 1. No acute cardiopulmonary process. Dictated by: Dictated on workstation # [id number]
[2020-08-12 13:54] LABS: ALKALINE PHOSPHATASE 42 U/L (40-136); CREATININE SERUM 1.02 MG/DL (0.60-1.30); GFR ESTIMATED > 60
[2020-08-12 13:55] LABS: BUN/CREATININE RATIO 15
[2020-08-12 13:57] LABS: ALANINE AMINOTRANSFERASE 24 U/L (0-55); MAGNESIUM 1.7 MG/DL (1.6-2.4)
[2020-08-12 14:23] VITALS: BP_SYST 104; BP_SYST 106; BP_SYST 110; BP_DIAS 58; BP_DIAS 64; BP_DIAS 67
--- NOTE | 2020-08-12 15:23 | Diagnostic Imaging Report ---
INDICATION: Flank pain. COMPARISON: 08/07/2020 FINDINGS: Two supine radiographic views of the abdomen were obtained and demonstrate nondistended loops of small bowel. There is no large collection of free peritoneal air. Moderate air and stool are seen scattered throughout the colon. No unexpected extraosseous calcifications or radiopaque foreign bodies are seen. Bony structures show no gross acute abnormalities. IMPRESSION: 1. Nonobstructed small bowel gas pattern. 2. Moderate colonic air and stool. Please correlate for constipation. Dictated by: Dictated on workstation # [id number]
[2020-08-12 15:32] VITALS: BP 137/68
== END 2020-08-12 15:32 | disposition home or self-care (01) ==
LOC: EDUNIT# 12:52 → ER 12:54
DX: I48.91 Unspecified atrial fibrillation (principal); I10 Essential (primary) hypertension; I25.10 Atherosclerotic heart disease of native coronary artery without angina pectoris; E11.9 Type 2 diabetes mellitus without complications; E78.00 Pure hypercholesterolemia, unspecified; K21.9 Gastro-esophageal reflux disease without esophagitis; Z88.1 Allergy status to other antibiotic agents; Z88.8 Allergy status to other drugs, medicaments and biological substances; Z95.1 Presence of aortocoronary bypass graft; Z85.46 Personal history of malignant neoplasm of prostate; Z87.891 Personal history of nicotine dependence; Z86.73 Personal history of transient ischemic attack (TIA), and cerebral infarction without residual deficits; Z82.49 Family history of ischemic heart disease and other diseases of the circulatory system; Z83.3 Family history of diabetes mellitus; Z80.9 Family history of malignant neoplasm, unspecified; Z79.82 Long term (current) use of aspirin; Z79.01 Long term (current) use of anticoagulants
CPT/HCPCS: 36415; 71045; 74018; 80053; 83735; 83874; 83880; 84484; 85025; 85610; 85730; 93005; 93041

== ENCOUNTER 2020-08-14 05:34 | Outpatient (RCR) | payer MEDICARE, BC ==
[~2020-08-14] VITALS: Ht 182.9 cm; Wt 115.9 kg
== END 2020-08-14 12:09 | disposition home or self-care (01) ==
LOC: PREOP 05:34
PROVIDERS: ATTEND Urology
DX: Z01.812 Encounter for preprocedural laboratory examination (principal); N20.2 Calculus of kidney with calculus of ureter; Z20.822 Contact with and (suspected) exposure to COVID-19
CPT/HCPCS: 87635

== ENCOUNTER 2020-08-18 06:57 | Day surgery (SDC) | payer MEDICARE, BC ==
[~2020-08-18] VITALS: Ht 182.9 cm; Wt 115.9 kg
[2020-08-18] VITALS (10 sets, daily range): BP systolic 86–132; BP diastolic 54–80
--- NOTE | 2020-08-18 07:07 | Progress Note-Pre Operative ---
Pre-Operative Progress Note H&P Reviewed The H&P was reviewed, patient examined and no changes noted. Date Seen by Provider: Aug 18, 2020 Time Seen by Provider: 07:07 Date H&P Reviewed: Aug 18, 2020 Time H&P Reviewed: 07:07 Pre-Operative Diagnosis: RT DISTAL URETERAL STONE ANDREW NATION MD Aug 18, 2020 07:07
[2020-08-18] MEDS ORDERED: LACTATED RINGERS 1,000 ML IV PRN (07:30)
[2020-08-18] MEDS ORDERED: cefTRIAXone FOR IV USE 1,000 MG in WATER (STERILE) FOR INJECTION 10 ML IV ONE (07:30)
--- NOTE | 2020-08-18 07:31 | Diagnostic Imaging Report ---
INDICATION: Possible stent placement. Examination: Abdomen from 08/18/2020 FINDINGS: 2 views of the abdomen There are clips in the right upper quadrant with postoperative seed placement in the pelvic region. Scattered densities noted bilaterally in the expected location of the kidneys likely stones. There is a nonobstructive bowel gas pattern. Impression: 1. Likely bilateral nephrolithiasis with other findings as above. Dictated by: Dictated on workstation # [id number]
[2020-08-18] MEDS ORDERED: ROCURONIUM 10 MG/ML 5 ML SYRINGE IV ONE (08:06)
[2020-08-18] MEDS ORDERED: ONDANSETRON 4 MG/2 ML (SDV) Z0FRAN ONE (08:06)
[2020-08-18] MEDS ORDERED: proPOfol 200 MG/20 ML (DIPRIVAN) VIAL IV ONE (08:06)
[2020-08-18] MEDS ORDERED: LIDOCAINE PF 2% 5 ML (XYLOCAINE) VIAL ONE (08:06)
[2020-08-18] MEDS ORDERED: fentaNYL INJECTION 100 MCG/2 ML AMP ONE (08:06)
[2020-08-18] MEDS ORDERED: KETOROLAC 30 MG/ML VIAL ONE (08:07)
[2020-08-18] MEDS ORDERED: FUROSEMIDE 40 MG/4 ML INJ (LASIX) ONE (08:07)
[2020-08-18] MEDS ORDERED: SEVOFLURANE (ULTANE) 15 ML INHAL SOLN ONE (08:07)
[2020-08-18] MEDS ORDERED: NEOSTIGMINE 3 MG/3 ML VIAL ONE (08:07)
[2020-08-18] MEDS ORDERED: GLYCOPYRROLATE 0.2 MG/ML (ROBINUL) 2 ML VIAL ONE (08:07)
--- NOTE | 2020-08-18 08:31 | Progress Note-Post Operative ---
Post-Operative Progess Note Surgeon (s)/Clutch Assembler (s) Surgeon ANDREW NATION MD Clutch Assembler: NONE Pre-Operative Diagnosis RT DISTAL URETERAL STONE Post-Operative Diagnosis SAME Procedure & Operative Findings Date of Procedure 08/18/20 Procedure Performed/Findings RT URETEROSCOPY WITH STONE LITHOTRIPSY Anesthesia Type GENERAL Estimated Blood Loss Estimated blood loss (mL): NONE Specimens/Packing Specimens Removed NONE TO PATH Packing: NONE ANDREW NATION MD Aug 18, 2020 08:31
--- NOTE | 2020-08-18 08:33 | Discharge Inst-Urology ---
Discharge Inst-Urology Reconcile Patient Problems Problems Reviewed?: Yes Final Diagnosis RT DISTAL URETERAL STONE Patient Instructions/Follow Up Plan/Assessment/Instructions Please make appointment to been seen in office in 2 weeks. In 48 hours, if no bleeding may resume Eliquis and ASA Increase oral fluids for 48 hours and then as needed. Diet and Activity as tolerated. If questions or concerns contact your physician Or seek help at emergency department. ANDREW NATION MD Aug 18, 2020 08:33
--- NOTE | 2020-08-18 10:45 | Anesthesia-General Post-Op ---
General Patient Condition Mental Status/LOC: Same as Preop Cardiovascular: Satisfactory Nausea/Vomiting: Absent Respiratory: Satisfactory Pain: Controlled Complications: Absent Post Op Complications Complications None Follow Up Care/Instructions Patient Instructions None needed. Anesthesia/Patient Condition Patient Condition Patient is doing well, no complaints, stable vital signs, no apparent adverse anesthesia problems. No complications reported per nursing. LAILA CH CRNA Aug 18, 2020 10:45
[2020-08-18] MEDS ORDERED: NITR-65 PO (10:46)
[2020-08-18] MEDS ORDERED: TMSL.4C PO (10:46)
[2020-08-18] MEDS ORDERED: TRM50T PO (10:46)
--- NOTE | 2020-08-18 13:38 | OPERATIVE REPORT ---
DATE OF SERVICE: 08/18/2020 PREOPERATIVE DIAGNOSIS: Right distal ureteral stone. POSTOPERATIVE DIAGNOSIS: Right distal ureteral stone. OPERATION PERFORMED: Right ureteroscopy with stone lithotripsy. SURGEON: Dano Nation MD ANESTHESIA: General. COMPLICATIONS: None. DESCRIPTION OF PROCEDURE: Under satisfactory general anesthesia, the patient in lithotomy position, genitalia were prepped and draped in the usual sterile fashion. Cystoscope was introduced under vision. The anterior urethra was normal. The prostate was nonobstructive. Bladder neck was entered, that essentially was normal except for sluggish efflux on the right side. Using the foroblique lens, I dilated the right ureteral orifice intramural portion to the level of the stone to accommodate a 6.9 Lao semi-rigid ureteroscope. I visualized this stone and using the lithoclast first at power of 5, I completely fragmented the stone and then moved to 12 to completely pulverize it. I went beyond the stone proximally. There were no more fragments, no stones. Most of the fragments were flowing down the bladder. I removed the ureteroscope, reinserted the cystoscope to empty the bladder and then removed it. The patient tolerated the procedure and anesthesia well and was sent to recovery room in stable condition. Job ID: [id number] DocumentID: [id number] Dictated Date: 08/18/2020 09:14:12 Plastic Roller Date: 08/18/2020 13:37:57 Dictated By: DANO NATION MD
== END 2020-08-18 11:40 | disposition home or self-care (01) ==
LOC: SDC 06:57
PROVIDERS: ATTEND Urology
DX: N20.1 Calculus of ureter (principal); I10 Essential (primary) hypertension; I25.10 Atherosclerotic heart disease of native coronary artery without angina pectoris; I48.91 Unspecified atrial fibrillation; G47.33 Obstructive sleep apnea (adult) (pediatric); E11.9 Type 2 diabetes mellitus without complications; K21.9 Gastro-esophageal reflux disease without esophagitis; Z88.1 Allergy status to other antibiotic agents; Z88.8 Allergy status to other drugs, medicaments and biological substances; Z95.1 Presence of aortocoronary bypass graft; Z79.899 Other long term (current) drug therapy; Z98.890 Other specified postprocedural states; Z79.82 Long term (current) use of aspirin; Z79.01 Long term (current) use of anticoagulants; Z85.46 Personal history of malignant neoplasm of prostate; Z86.73 Personal history of transient ischemic attack (TIA), and cerebral infarction without residual deficits; Z87.891 Personal history of nicotine dependence
CPT/HCPCS: 74018; 76000; 82962; 87081

== ENCOUNTER 2020-09-13 07:38 | Emergency (ER) | payer MEDICARE, BC ==
[~2020-09-13] VITALS: Ht 182 cm; Wt 116.5 kg
[~2020-09-13 07:38] MED LIST changes: +NITR-65 PO; +TRM50T PO
--- NOTE | 2020-09-13 08:02 | ED General ---
General Stated Complaint: N/V,DIARRHEA, DIZZINESS History of Present Illness Date Seen by Provider: Sep 13, 2020 Time Seen by Provider: 07:45 Initial Comments Patient is a an 80-year-old male who presents to the emergency department today with a chief complaint of nausea, vomiting x1 and too numerous to count diarrheal episodes. Patient states that he and his went and had lunch at [employer] on Monday afternoon after having not eaten out for approximately 1 year due to Covid. He states that he was a little bit nauseated yesterday had one episode of vomiting and then was up all night long with diarrhea last night. Patient states towards the end of the night he noticed a little blood on the tissue paper as he would wipe. Patient states that he has not had any chest pain, shortness of breath. 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 Patient states that he and his ate and that he initially felt a little unwell but felt okay most of the day yesterday and symptoms recurred last night. Patient denies being on antibiotics recently but had a kidney stone last month and required antibiotics for treatment of his urine in association with a kidney stone. Patient's states that he she gave him 2 Imodium this morning for the diarrhea. He is still currently feeling nauseated. Both he and his received her Covid vaccinations in June and July of this year. All other review of systems reviewed and negative except as stated. Timing/Duration: 24 Hours Severity: Moderate Associated Systoms: Nausea/Vomiting Allergies and Home Medications Allergies Coded Allergies: Jfiktty-Jth-Upe Reductase Inhibitor (Verified Allergy, Mild, 08/13/20) amiodarone (Unverified Allergy, Unknown, 06/12/17) nebivolol (Verified Adverse Reaction, Intermediate, 08/13/20) ciprofloxacin (Verified Adverse Reaction, Mild, HALLUCINATIONS, 02/28/17) clonidine (Verified Adverse Reaction, Mild, HALLUCINATIONS, 02/28/17) mirabegron (Verified Adverse Reaction, Mild, 08/18/20) ELEVATED B/P Home Medications Amlodipine Besylate 5 Mg Tablet, 5 MG PO DAILY, (Reported) Cholecalciferol (Vitamin D3) 1,000 Unit Capsule, 1,000 UNIT PO BID, (Reported) Cyanocobalamin (Vitamin B-12) 1,000 Mcg Tablet.er, 1,000 MCG PO DAILY, (Reported) Dutasteride/Tamsulosin HCl 1 Each Cpmp.24hr, 1 CAP PO HS, (Reported) Evolocumab 420 Mg/3.5 Ml Wear.injct, 420 MG SQ MONTHLY, (Reported) Furosemide 20 Mg Tablet, 20 MG PO DAILY PRN for SWELLING, (Reported) Losartan Potassium 100 Mg Tablet, 100 MG PO DAILY, (Reported) Metoprolol Tartrate 100 Mg Tablet, 100 MG PO BID, (Reported) Multivit-Min/FA/Lycopene/Lut 1 Each Tablet, 1 TAB PO DAILY, (Reported) Nitrofurantoin Monohyd/M-Cryst 100 Mg Capsule, 1 TAB PO BID WITH MEALS Prescribed by: YOUSIF ABBOTT on 08/18/20 1046 Nitroglycerin 0.4 Mg Tab.subl, 0.4 MG SL UD PRN for CHEST PAIN, (Reported) Omeprazole 20 Mg Capsule.dr, 20 MG PO DAILY, (Reported) Ondansetron 8 Mg Tab.rapdis, 8 MG PO Q6H PRN for NAUSEA/VOMITING Prescribed by: KY ANDERSON on 08/07/20 1642 Ondansetron 8 Mg Tab.rapdis, 8 MG PO Q6H PRN for NAUSEA/VOMITING Prescribed by: KY ANDERSON on 08/07/20 1711 Oxybutynin Chloride 15 Mg Tab.er.24, 15 MG PO DAILY, (Reported) Sitagliptin Phosphate 100 Mg Tablet, 100 MG PO DAILY, (Reported) Tamsulosin HCl 0.4 Mg Cap, 0.4 MG PO DAILY Prescribed by: YK ANDERSON on 08/07/20 1711 Tamsulosin HCl 0.4 Mg Cap, 0.4 MG PO DAILY Prescribed by: YOUSIF ABBOTT on 08/18/20 1046 Tramadol HCl 50 Mg Tablet, 1-2 TAB PO Q4H PRN for PAIN-MODERATE (5-7) Prescribed by: YOUSIF ABBOTT on 08/18/20 1046 Patient Home Medication List Home Medication List Reviewed: Yes Review of Systems Review of Systems Constitutional: see HPI EENTM: no symptoms reported Respiratory: no symptoms reported Cardiovascular: no symptoms reported Gastrointestinal: diarrhea, nausea, vomiting Genitourinary: no symptoms reported Musculoskeletal: no symptoms reported Skin: no symptoms reported All Other Systems Reviewed Negative Unless Noted: Yes Past Ybuvzep-Nqigrg-Tyejoo Hx Patient Social History Type Used: Cigarettes Former Smoker, Quit: Jun 12, 1978 2nd Hand Smoke Exposure: No Recent Hopitalizations: No Immunizations Up To Date Tetanus Booster (TDap): Unknown PED Vaccines UTD: No Date of Pneumonia Vaccine: Mar 26, 2019 Date of Influenza Vaccine: Mar 26, 2020 Seasonal Allergies Seasonal Allergies: Yes Past Medical History Surgeries: Yes (CABG,KIDNEY STONE SX X3,BILAT EYE IMPLANT/CATARACTS, PROSTATE SEED IMPLANTS) CABG, Eye Surgery, Gallbladder Respiratory: Yes Sleep Apnea Currently Using CPAP: Yes Currently Using BIPAP: No Cardiac: Yes Atrial Fibrillation, Coronary Artery Disease, High Cholesterol, Hypertension Neurological: Yes TIA Reproductive Disorders: No Sexually Transmitted Disease: No HIV/AIDS: No Genitourinary: No Kidney Infection, Prostate Problems, Bladder Infection, Kidney Stones Gastrointestinal: No Gastroesophageal Reflux, Chronic Constipation, Polyps Musculoskeletal: Yes (MILD, lyme's disease) Arthritis Endocrine: Yes (Type II) Diabetes, Non-Insulin dep HEENT: Yes (BILATERAL CATARACT SURGERY) Cataract Loss of Vision: Denies Hearing Impairment: Hard of Hearing Cancer: Yes (PROSTATE) Prostate Did You Recieve Any Treatments: Yes What Type of Treatment Did You: Radiation Psychosocial: No Integumentary: No Blood Disorders: No Family Medical History Cardiovascular disease 19 FATHER, Diabetes mellitus G8 SISTER Cancer, Hypertension Physical Exam Vital Signs Vital Signs - First Documented 09/13/20 07:40 Temp 36.8 Pulse 89 Resp 18 B/P (MAP) 169/103 (125) Pulse Ox 96 Capillary Refill : Height, Weight, BMI Height: 5'11.00" Weight: 250lbs. 0.0oz. [id number]; 34.64 BMI Method:Stated General Appearance: No Apparent Distress, WD/WN Eyes: Bilateral Eye Normal Inspection, Bilateral Eye PERRL, Bilateral Eye EOMI Neck: Normal Inspection Respiratory: Lungs Clear, Normal Breath Sounds, No Accessory Muscle Use, No Respiratory Distress Cardiovascular: Irregularly Irregular Gastrointestinal: No Pulsatile Mass, Non Tender, Abnormal Bowel Sounds (Hyperactive bowel sounds) Extremity: Normal Inspection, Pedal Edema (2-3+ pitting edema bilateral lower extremities) Neurologic/Psychiatric: Alert, Oriented x3, No Motor/Sensory Deficits, Normal Mood/Affect Skin: Normal Color, Warm/Dry Progress/Results/Core Measures Suspected Sepsis SIRS Temperature: Pulse: Respiratory Rate: Laboratory Tests 09/13/20 07:49: White Blood Count 10.2 Blood Pressure / Mean: Laboratory Tests 09/13/20 07:49: Creatinine 0.90, Platelet Count 270, Total Bilirubin 2.0H Results/Orders Lab Results Laboratory Tests Test 09/13/20 07:49 Range/Units White Blood Count 10.2 4.3-11.0 10^3/uL Red Blood Count 4.54 4.30-5.52 10^6/uL Hemoglobin 14.3 13.3-17.7 g/dL Hematocrit 46 40-54 % Mean Corpuscular Volume 101 H 80-99 fL Mean Corpuscular Hemoglobin 32 25-34 pg Mean Corpuscular Hemoglobin Concent 31 L 32-36 g/dL Red Cell Distribution Width 14.0 10.0-14.5 % Platelet Count 270 130-400 10^3/uL Mean Platelet Volume 12.3 H 9.0-12.2 fL Immature Granulocyte % (Auto) 1 % Neutrophils (%) (Auto) 79 H 42-75 % Lymphocytes (%) (Auto) 11 L 12-44 % Monocytes (%) (Auto) 10 0-12 % Eosinophils (%) (Auto) 0 0-10 % Basophils (%) (Auto) 0 0-10 % Neutrophils # (Auto) 8.0 H 1.8-7.8 10^3/uL Lymphocytes # (Auto) 1.1 1.0-4.0 10^3/uL Monocytes # (Auto) 1.0 0.0-1.0 10^3/uL Eosinophils # (Auto) 0.0 0.0-0.3 10^3/uL Basophils # (Auto) 0.0 0.0-0.1 10^3/uL Immature Granulocyte # (Auto) 0.1 0.0-0.1 10^3/uL Sodium Level 137 135-145 MMOL/L Potassium Level 4.5 3.6-5.0 MMOL/L Chloride Level 106 98-107 MMOL/L Carbon Dioxide Level 17 L 21-32 MMOL/L Anion Gap 14 5-14 MMOL/L Blood Urea Nitrogen 11 7-18 MG/DL Creatinine 0.90 0.60-1.30 MG/DL Estimat Glomerular Filtration Rate > 60 BUN/Creatinine Ratio 12 Glucose Level 165 H 70-105 MG/DL Calcium Level 9.1 8.5-10.1 MG/DL Corrected Calcium 8.9 8.5-10.1 MG/DL Total Bilirubin 2.0 H 0.1-1.0 MG/DL Aspartate Amino Transf (AST/SGOT) 23 5-34 U/L Alanine Aminotransferase (ALT/SGPT) 15 0-55 U/L Alkaline Phosphatase 44 40-136 U/L Total Protein 7.0 6.4-8.2 GM/DL Albumin 4.3 3.2-4.5 GM/DL My Orders Orders - SUSAN ROOT MD Ekg Tracing (09/13/20 07:58) Cbc With Automated Diff (09/13/20 07:58) Comprehensive Metabolic Panel (09/13/20 07:58) Ed Iv/Invasive Line Start (09/13/20 07:58) Ondansetron Oral Dissolve Tab (Zofran (09/13/20 08:07) Vital Signs/I&O 09/13/20 07:40 Temp 36.8 Pulse 89 Resp 18 B/P (MAP) 169/103 (125) Pulse Ox 96 Capillary Refill : Progress Note : Time: 09:26 Progress Note Patient seen and evaluated here in the emergency department, 80-year-old with a history of nausea, vomiting x1 and multiple diarrheal episodes. Evaluation today includes physical exam, CBC, Chem-12. Patient is treated in the emergency department with 8 mg of oral Zofran dissolving tablets. Patient is monitored for any further symptomatology. He has been up to urinate at the bathroom but has not had any further diarrheal episodes. He was given 2 tablets of Imodium by his early this morning. Patient has tolerated oral intake here in the emergency department. He states that he is feeling somewhat better. He was up all night with his diarrhea therefore at this point I believe that he is truly exhausted. Patient is counseled on oral rehydration at home. He verbalizes understanding. I have also advised him to take further Imodium tablets this evening. Patient has nausea medications at home that he can rely on should he become nauseated again. He is advised to follow-up with his primary care physician. All questions are sought and answered. Patient is stable for discharge. ECG Initial ECG Impression Date: Sep 13, 2020 Initial ECG Impression Time: 08:03 Initial ECG Rate: 81 Initial ECG Rhythm: A Fib/Flutter Comment Intermittent paced rhythm, underlying rhythm is noted to be atrial fibrillation without signs of ST segment elevation or depression. Departure Impression Primary Impression: Food poisoning Disposition: 01 HOME, SELF-CARE Condition: Stable Departure-Patient Inst. Decision time for Depature: 09:28 Referrals: RYAN LANDON MD (PCP/Family) Primary Care Physician Patient Instructions: Food Poisoning Add. Discharge Instructions: Drink plenty of fluids to stay well-hydrated today. You can drink diluted Gatorade to help keep your electrolytes in check. Take your nausea medications at home as prescribed every 8 hours as needed for nausea/stomach upset. Return to the emergency room if you have any return of symptoms especially with persistent vomiting, diarrhea, inability to hold down fluids or or any other emergent concerning symptoms. Please follow-up with your primary care physician. Copy Copies To 1: RYAN LANDON MD, KATHRYN M MD Sep 13, 2020 08:02
[2020-09-13 08:03] LABS: BASOPHILS % (AUTO) 0 % (0-10); EOSINOPHILS % (AUTO) 0 % (0-10); HEMATOCRIT 46 % (40-54); HEMOGLOBIN 14.3 g/dL (13.3-17.7); LYMPHOCYTES # (AUTO) 1.1 10^3/uL (1.0-4.0); LYMPHOCYTES % (AUTO) 11 % (12-44); MEAN CORPUSCULAR HEMOGLOBIN 32 pg (25-34); MEAN CORPUSCULAR HGB CONC 31 g/dL (32-36); MEAN CORPUSCULAR VOLUME 101 fL (80-99); MEAN PLATELET VOLUME 12.3 fL (9.0-12.2); MONOCYTES % (AUTO) 10 % (0-12); NEUTROPHILS % (AUTO) 79 % (42-75); PLATELET COUNT 270 10^3/uL (130-400); WHITE BLOOD COUNT 10.2 10^3/uL (4.3-11.0)
[2020-09-13 08:07] LABS: ALBUMIN 4.3 GM/DL (3.2-4.5); CHLORIDE 106 MMOL/L (98-107); POTASSIUM 4.5 MMOL/L (3.6-5.0); SODIUM 137 MMOL/L (135-145)
[2020-09-13] MEDS ORDERED: ONDANSETRON 4 MG (ZOFRAN) ORAL DISSOLVE TAB PO STA (08:07)
[2020-09-13 08:08] LABS: CALCIUM 9.1 MG/DL (8.5-10.1)
[2020-09-13 08:09] LABS: GLUCOSE 165 MG/DL (70-105)
[2020-09-13 08:11] LABS: CARBON DIOXIDE 17 MMOL/L (21-32)
[2020-09-13 08:13] LABS: ALKALINE PHOSPHATASE 44 U/L (40-136); GFR ESTIMATED > 60
[2020-09-13 08:14] LABS: BUN/CREATININE RATIO 12
[2020-09-13 08:16] LABS: ALANINE AMINOTRANSFERASE 15 U/L (0-55)
[2020-09-13 09:50] VITALS: BP 132/76
== END 2020-09-13 09:51 | disposition home or self-care (01) ==
LOC: EDUNIT# 07:38 → ER 07:41
DX: A05.9 Bacterial foodborne intoxication, unspecified (principal); I25.10 Atherosclerotic heart disease of native coronary artery without angina pectoris; E78.00 Pure hypercholesterolemia, unspecified; I10 Essential (primary) hypertension; K21.9 Gastro-esophageal reflux disease without esophagitis; E11.9 Type 2 diabetes mellitus without complications; Z88.1 Allergy status to other antibiotic agents; Z88.8 Allergy status to other drugs, medicaments and biological substances; Z87.891 Personal history of nicotine dependence; Z86.73 Personal history of transient ischemic attack (TIA), and cerebral infarction without residual deficits; Z85.46 Personal history of malignant neoplasm of prostate; Z95.1 Presence of aortocoronary bypass graft
CPT/HCPCS: 36415; 80053; 85025; 93005

== ENCOUNTER 2020-09-28 15:02 | Outpatient (RCR) | payer MEDICARE, BC | END 2020-09-29 | disposition home or self-care (01) | PROVIDERS: ATTEND Physical Medicine & Rehabilitation | DX: M48.062 Spinal stenosis, lumbar region with neurogenic claudication (principal); E66.01 Morbid (severe) obesity due to excess calories; Z98.890 Other specified postprocedural states; Z95.0 Presence of cardiac pacemaker; Z95.1 Presence of aortocoronary bypass graft; Z90.49 Acquired absence of other specified parts of digestive tract ==

== ENCOUNTER 2020-11-18 13:41 | Outpatient (RCR) | payer MEDICARE, BC | END 2020-11-18 14:40 | disposition home or self-care (01) | PROVIDERS: ATTEND Physical Medicine & Rehabilitation | DX: M48.062 Spinal stenosis, lumbar region with neurogenic claudication (principal); E66.01 Morbid (severe) obesity due to excess calories ==

== ENCOUNTER → 2021-02-24 | Outpatient (CLI) | payer MEDICARE, BC ==
--- NOTE | 2021-02-24 14:46 | Diagnostic Imaging Report ---
INDICATION: Cardiac pacemaker, coronary artery disease COMPARISON: 08/12/2020 FINDINGS: Single view chest demonstrates a stable tiny benign nodule in right midlung. Otherwise, lungs are clear. Heart is normal. There is no pneumothorax. Sternal wires midline. Dual lead pacemaker is stable in position. Osseous structures are age-appropriate. IMPRESSION: Stable dual-lead pacemaker. No acute cardiopulmonary findings. Dictated by: Dictated on workstation # [id number]
[2021-02-24 15:42] LABS: BASOPHILS # (AUTO) 0.1 10^3/uL (0.0-0.1); BASOPHILS % (AUTO) 1 % (0-10); EOSINOPHILS % (AUTO) 0 % (0-10); HEMATOCRIT 45 % (40-54); HEMOGLOBIN 14.5 g/dL (13.3-17.7); LYMPHOCYTES % (AUTO) 25 % (12-44); MEAN CORPUSCULAR HEMOGLOBIN 29 pg (25-34); MEAN CORPUSCULAR HGB CONC 32 g/dL (32-36); MEAN CORPUSCULAR VOLUME 91 fL (80-99); MEAN PLATELET VOLUME 11.7 fL (9.0-12.2); MONOCYTES # (AUTO) 1.1 X 10^3 (0.0-1.0); MONOCYTES % (AUTO) 13 % (0-12); NEUTROPHILS # (AUTO) 4.9 X 10^3 (1.8-7.8); NEUTROPHILS % (AUTO) 60 % (42-75); PLATELET COUNT 406 10^3/uL (130-400); WHITE BLOOD COUNT 8.1 10^3/uL (4.3-11.0)
[2021-02-24 15:45] LABS: BILIRUBIN,URINE NEGATIVE (NEGATIVE); CLARITY,URINE CLEAR; COLOR,URINE YELLOW; GLUCOSE, URINE (UA) NEGATIVE (NEGATIVE); KETONES,URINE TRACE (NEGATIVE); LEUKOCYTE ESTERASE ,URINE TRACE (NEGATIVE); NITRITE,URINE NEGATIVE (NEGATIVE); PROTEIN,URINE 1+ (NEGATIVE)
[2021-02-24 15:51] LABS: ALBUMIN 4.1 GM/DL (3.2-4.5); POTASSIUM 3.9 MMOL/L (3.6-5.0)
[2021-02-24 15:53] LABS: TOTAL PROTEIN 6.9 GM/DL (6.4-8.2)
[2021-02-24 15:55] LABS: BILIRUBIN,TOTAL 1.4 MG/DL (0.1-1.0)
[2021-02-24 15:56] LABS: BACTERIA,URINE TRACE /HPF; RBC,URINE RARE /HPF; SQUAMOUS EPITHELIAL CELL,UR RARE /HPF
[2021-02-24 15:57] LABS: CREATININE SERUM 0.97 MG/DL (0.60-1.30)
--- NOTE | 2021-02-24 16:28 | Diagnostic Imaging Report ---
INDICATION: Chronic back pain COMPARISON: None TECHNIQUE: Routine non-contrast enhanced multiplanar, multisequence MRI of the thoracic spine was obtained. FINDINGS: There is normal anatomic alignment of the thoracic spine. Multiple superior and inferior endplate Schmorl's nodes are noted. There is also mild multilevel intervertebral disc height loss. Vertebral body heights are otherwise maintained. Marrow signal is within normal limits. There is no acute fracture. The visualized spinal cord has a normal appearance. No large pre or paravertebral masses are seen. The axial images demonstrate multilevel facet arthropathy, but no disk bulge, herniation, central canal nor foraminal stenosis. IMPRESSION: Mild multilevel degenerative changes, but otherwise unremarkable MRI of the thoracic spine. No acute fracture or dislocation. Dictated by: Dictated on workstation # [id number]
== END ==
LOC: RAD 14:45
PROVIDERS: ATTEND Physical Medicine & Rehabilitation
DX: Z01.818 Encounter for other preprocedural examination (principal); M47.814 Spondylosis without myelopathy or radiculopathy, thoracic region; M47.816 Spondylosis without myelopathy or radiculopathy, lumbar region; M51.36 Other intervertebral disc degeneration, lumbar region; M48.061 Spinal stenosis, lumbar region without neurogenic claudication; I25.10 Atherosclerotic heart disease of native coronary artery without angina pectoris; Z95.0 Presence of cardiac pacemaker
CPT/HCPCS: 36415; 71045; 72146; 80053; 81000; 85025; 87081; 87088

== ENCOUNTER → 2021-03-26 | Outpatient (CLI) | payer MEDICARE, BC | LOC: LABNPT 06:10 | PROVIDERS: ATTEND Physical Medicine & Rehabilitation | DX: Z01.812 Encounter for preprocedural laboratory examination (principal); Z20.822 Contact with and (suspected) exposure to COVID-19 | CPT/HCPCS: 87635 ==

== ENCOUNTER → 2021-04-02 | Outpatient (CLI) | payer MEDICARE, BC | LOC: LABNPT 06:30 | PROVIDERS: ATTEND Physical Medicine & Rehabilitation | DX: Z01.812 Encounter for preprocedural laboratory examination (principal); Z20.822 Contact with and (suspected) exposure to COVID-19 | CPT/HCPCS: 87635 ==

== ENCOUNTER → 2021-05-07 | Outpatient (CLI) | payer MEDICARE, BC | LOC: LABNPT 05:54 | PROVIDERS: ATTEND Physical Medicine & Rehabilitation | DX: Z01.812 Encounter for preprocedural laboratory examination (principal); Z20.822 Contact with and (suspected) exposure to COVID-19 | CPT/HCPCS: 87635 ==

== ENCOUNTER 2021-10-27 15:39 | Outpatient (CLI) | payer MEDICARE, BC ==
[~2021-10-27] VITALS: Ht 182.9 cm; Wt 113.6 kg
[~2021-10-27 15:39] MED LIST changes: -AMIO200T6 PO; +AMIO200T65 PO
[2021-10-27] MEDS ORDERED: NS IV 1000 ML 1,000 ML ONE (15:48)
[2021-10-27] MEDS ORDERED: NS IV 1000 ML 1,000 ML IV SCH (16:15)
[2021-10-27 16:40] VITALS: BP 134/66
== END 2021-10-27 16:40 ==
LOC: SDC 15:39
PROVIDERS: ATTEND Family Medicine
DX: R53.1 Weakness (principal); R11.2 Nausea with vomiting, unspecified; R19.7 Diarrhea, unspecified; Z20.822 Contact with and (suspected) exposure to COVID-19
CPT/HCPCS: 96360

== ENCOUNTER 2021-11-06 03:32 | Emergency (ER) | payer MEDICARE, BC ==
[2021-11-06] MEDS ORDERED: LIDOCAINE/EPI 1%-1:100,000 (XYLOCAINE) 10 ML ONE (03:44)
[2021-11-06] MEDS ORDERED: HYDROcodone/APAP 7.5 MG/325 MG (LORTAB, LORCET PLUS) TABLET PO ONE (04:00)
--- NOTE | 2021-11-06 04:14 | ED Integumentary General ---
General Chief Complaint: Skin/Wound Problems Stated Complaint: HEAD WOUND BLEEDING Source: patient, EMS Exam Limitations: no limitations History of Present Illness Date Seen by Provider: November 06, 2021 Time Seen by Provider: 03:45 Initial Comments Patient is an 81-year-old male who presents to the emergency department today with a chief complaint of bleeding from a wound on his forehead. Patient had a skin cancer removed from his forehead earlier today by a local doctor. It was stitched closed. He does have a history of being on Eliquis. He is currently not on it. Patient states that he went to bed just fine woke up to go to the bathroom and then noticed blood pouring out of his head. He feels a little naus eous. He has some discomfort in the area of bleeding. He arrives with a very large bandage wrapped around his head bleeding appears controlled. After removing the bandage it was noted in the most medial portion of the wound a pulsatile small bleed, quite brisk. Patient is not tachycardic. He is not hypotensive he is a little pale. 1.5 cc of 1% lidocaine with epinephrine was u sed to infiltrate around the area of bleeding. This did not seem to affect the amount of bleeding. A Prolene 5-0 suture was used to make a figure of 8 stitch over the area of bleeding which does appear to have controlled the bleeding. I cleaned up the skin around the wound to be able to monitor more closely for recurrence of bleeding. I stood and watched the wound for about 10 minutes and there did not appear to be an expanding hematoma underneath the ayhppu-et-vmaah stitch.. Timing/Duration: just prior to arrival Severity: severe Location: scalp Associated Symptoms: other (Little nauseous lightheaded) Allergies and Home Medications Allergies Coded Allergies: Fhuscvh-OEY-KnG Reductase Inhibitor (Verified Allergy, Mild, 08/13/20) amiodarone (Unverified Allergy, Unknown, 06/12/17) nebivolol (Verified Adverse Reaction, Intermediate, 08/13/20) ciprofloxacin (Verified Adverse Reaction, Mild, HALLUCINATIONS, 02/28/17) clonidine (Verified Adverse Reaction, Mild, HALLUCINATIONS, 02/28/17) mirabegron (Verified Adverse Reaction, Mild, 08/18/20) ELEVATED B/P Patient Home Medication List Home Medication List Reviewed: Yes Amlodipine Besylate (Amlodipine Besylate) 5 Mg Tablet, 5 MG PO DAILY, (Reported) Entered as Reported by: GONZALO TURNER on 11/13/17 0943 Cholecalciferol (Vitamin D3) (Vitamin D3) 1,000 Unit Capsule, 1,000 UNIT PO BID, (Reported) Entered as Reported by: BILLY MAS on 03/19/17 1129 Cyanocobalamin (Vitamin B-12) (Vitamin B-12) 1,000 Mcg Tablet.er, 1,000 MCG PO DAILY, (Reported) Entered as Reported by: BILLY MAS on 03/19/17 1129 Dutasteride/Tamsulosin HCl (Dutasteride-Tamsulosin 0.5-0.4) 1 Each Cpmp.24hr, 1 CAP PO HS, (Reported) Entered as Reported by: GONZALO TURNER on 04/25/16 1042 Evolocumab (Repatha Pushtronex) 420 Mg/3.5 Ml Wear.injct, 420 MG SQ MONTHLY, (R eported) Entered as Reported by: GONZALO TURNER on 07/23/18 1037 Furosemide (Furosemide) 20 Mg Tablet, 20 MG PO DAILY PRN for SWELLING, (Reported) Entered as Reported by: GONZALO TURNER on 02/26/15 1338 Losartan Potassium (Losartan Potassium) 100 Mg Tablet, 100 MG PO DAILY, (Reported) Entered as Reported by: GONZALO TURNER on 02/26/15 1334 Metoprolol Tartrate (Metoprolol Tartrate) 100 Mg Tablet, 100 MG PO BID, (Reported) Entered as Reported by: GONZAOL TURNER on 11/13/17 0943 Multivit-Min/FA/Lycopene/Lut (Centrum Silver Tablet) 1 Each Tablet, 1 TAB PO DAILY, (Reported) Entered as Reported by: BILLY MAS on 03/19/17 1129 Nitrofurantoin Monohyd/M-Cryst (Macrobid 100 mg Capsule) 100 Mg Capsule, 1 TAB PO BID WITH MEALS Prescribed by: YOUSIF ABBOTT on 08/18/20 1046 Nitroglycerin (Nitroglycerin) 0.4 Mg Tab.subl, 0.4 MG SL UD PRN for CHEST PAIN, (Reported) Entered as Reported by: GONZALO TURNER on 06/12/17 1137 Omeprazole (Omeprazole) 20 Mg Capsule.dr, 20 MG PO DAILY, (Reported) Entered as Reported by: GONZALO TURNER on 11/13/17 0943 Ondansetron (Ondansetron Odt) 8 Mg Tab.rapdis, 8 MG PO Q6H PRN for NAUSEA/VOMITING Prescribed by: KY ANDERSON on 08/07/20 1642 Ondansetron (Ondansetron Odt) 8 Mg Tab.rapdis, 8 MG PO Q6H PRN for NAUSEA/VOMITING Prescribed by: KY ANDERSON on 08/07/20 1711 Oxybutynin Chloride (Oxybutynin Chloride ER) 15 Mg Tab.er.24, 15 MG PO DAILY, (Reported) Entered as Reported by: GONZALO TURNER on 11/13/17 0943 Sitagliptin Phosphate (Januvia) 100 Mg Tablet, 100 MG PO DAILY, (Reported) Entered as Reported by: OWEN FERREIRA on 11/29/19 0808 Tamsulosin HCl (Flomax) 0.4 Mg Cap, 0.4 MG PO DAILY Prescribed by: KY ANDERSON on 08/07/20 1711 Tamsulosin HCl (Flomax) 0.4 Mg Cap, 0.4 MG PO DAILY Prescribed by: YOUSIF ABBOTT on 08/18/20 1046 Tramadol HCl (Tramadol HCl) 50 Mg Tablet, 1-2 TAB PO Q4H PRN for PAIN-MODERATE (5-7) Prescribed by: YOUSIF ABBOTT on 08/18/20 1046 Review of Systems Review of Systems Constitutional: see HPI EENTM: no symptoms reported Respiratory: no symptoms reported Cardiovascular: no symptoms reported Gastrointestinal: nausea Skin: other (Bleeding from forehead wound) Psychiatric/Neurological: Headache All Other Systems Reviewed Negative Unless Noted: Yes Past Lfhrtgw-Sdfrku-Aazkea Hx Patient Social History Tobacco Use?: No Substance use?: No Alcohol Use?: No Immunizations Up To Date Tetanus Booster (TDap): Unknown PED Vaccines UTD: No Influenza Vaccine Up-to-Date: Yes; Up-to-Date COVID19 Vaccine 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 Seasonal Allergies Seasonal Allergies: Yes Past Medical History Surgeries: Yes (CABG,KIDNEY STONE SX X3,BILAT EYE IMPLANT/CATARACTS, PROSTATE SEED IMPLANTS) CABG, Eye Surgery, Gallbladder Respiratory: Yes Sleep Apnea Currently Using CPAP: Yes Currently Using BIPAP: No Cardiac: Yes Angina, Atrial Fibrillation, Coronary Artery Disease, High Cholesterol, Hypertension Neurological: Yes TIA Reproductive Disorders: No Sexually Transmitted Disease: No HIV/AIDS: No Genitourinary: No Kidney Infection, Prostate Problems, Bladder Infection, Kidney Stones Gastrointestinal: No Gastroesophageal Reflux, Chronic Constipation, Polyps Musculoskeletal: Yes (MILD, lyme's disease) Arthritis Endocrine: Yes (Type II) Diabetes, Non-Insulin dep HEENT: Yes (BILATERAL CATARACT SURGERY) Cataract Loss of Vision: Denies Hearing Impairment: Hard of Hearing Cancer: Yes (PROSTATE) Prostate Did You Recieve Any Treatments: Yes What Type of Treatment Did You: Radiation Psychosocial: No Integumentary: No Blood Disorders: No Family Medical History Cardiovascular disease 19 FATHER, Diabetes mellitus G8 SISTER Cancer, Hypertension Physical Exam Vital Signs Vital Signs - First Documented 11/06/21 03:32 Temp 37.0 Pulse 67 Resp 16 B/P (MAP) 167/81 (109) Pulse Ox 97 O2 Delivery Room Air Capillary Refill : General Appearance: no apparent distress HEENT: PERRL/EOMI, pale conjunctivae (R), pale conjunctivae (L) Neck: normal inspection Respiratory: no respiratory distress, no accessory muscle use Extremities: normal range of motion, pedal edema (3+ pedal edema bilateral lower extremity) Neurologic/Psychiatric: alert, normal mood/affect, oriented x 3 Skin: normal color, warm/dry, other (Scalp wound right forehead, sutured closed where he had a skin cancer removed. The most proximal portion of the wound has a small pulsatile arterial bleed. ) Procedures/Interventions Wound Location: Face (Right forehead) Other Wound Location Right forehead Wound Length (cm): 3 Wound's Depth, Shape: linear Progress Wound was cleansed with Betasept and saline. 1.5 cc of 1% lidocaine with epinephrine was infiltrated in the area around the arterial bleed. A 5-0 single Prolene suture was placed in ygvejs-wv-cvsdx formation to control the bleeding. Progress/Results/Core Measures Results/Orders Lab Results Laboratory Tests Test 11/06/21 03:54 Range/Units White Blood Count 7.9 4.3-11.0 10^3/uL Red Blood Count 4.12 L 4.30-5.52 10^6/uL Hemoglobin 12.9 L 13.3-17.7 g/dL Hematocrit 39 L 40-54 % Mean Corpuscular Volume 93 80-99 fL Mean Corpuscular Hemoglobin 31 25-34 pg Mean Corpuscular Hemoglobin Concent 34 32-36 g/dL Red Cell Distribution Width 14.6 H 10.0-14.5 % Platelet Count 442 H 130-400 10^3/uL Mean Platelet Volume 12.2 9.0-12.2 fL Immature Granulocyte % (Auto) 1 % Neutrophils (%) (Auto) 56 42-75 % Lymphocytes (%) (Auto) 29 12-44 % Monocytes (%) (Auto) 13 H 0-12 % Eosinophils (%) (Auto) 1 0-10 % Basophils (%) (Auto) 0 0-10 % Neutrophils # (Auto) 4.4 1.8-7.8 10^3/uL Lymphocytes # (Auto) 2.3 1.0-4.0 10^3/uL Monocytes # (Auto) 1.0 0.0-1.0 10^3/uL Eosinophils # (Auto) 0.1 0.0-0.3 10^3/uL Basophils # (Auto) 0.0 0.0-0.1 10^3/uL Immature Granulocyte # (Auto) 0.1 0.0-0.1 10^3/uL My Orders Orders - SUSAN ROOT MD Lidocaine/Epi 1% 1:100,000 (Xylocaine 1% (11/06/21 03:44) Cbc With Automated Diff (11/06/21 03:48) Hydrocodone/Apap 7.5/325 Tab (Lortab 7. (11/06/21 04:00) Medications Given in ED Current Medications Medications Dose Ordered Sig/Mariajose Route Start Time Stop Time Status Last Admin Dose Admin Acetaminophen/ Hydrocodone Bitart 1 ea ONCE ONCE PO 11/06/21 04:00 11/06/21 04:01 DC 11/06/21 03:52 1 EA Lidocaine/ Epinephrine 10 ml STK-MED ONCE .ROUTE 11/06/21 03:44 11/06/21 03:46 DC 11/06/21 03:53 10 ML Vital Signs/I&O 11/06/21 03:32 Temp 37.0 Pulse 67 Resp 16 B/P (MAP) 167/81 (109) Pulse Ox 97 O2 Delivery Room Air Progress Progress Note : Time: 05:02 Progress Note Patient was monitored for about an hour after the kwydxy-ua-cskeq stitch was placed. No expanding hematoma no return of bleeding. His hemoglobin is stable at 12. He is a little bit lethargic after his pain pill. He is still able to converse. Vital signs are stable. I talked to his about return precautions and wound care instructions. She will follow-up with the doctor who performed the excision later on this morning. All questions are sought and answered. Patient is stable for discharge Departure Impression Primary Impression: Hemorrhage from wound Disposition: 01 HOME, SELF-CARE Condition: Improved Departure-Patient Inst. Decision time for Depature: 04:14 Referrals: RYAN LANDON MD (PCP/Family) Primary Care Physician Patient Instructions: Wound Care (DC) Add. Discharge Instructions: Keep the dry gauze dressing over the wound on your forehead. I placed a figure of 8 stitch in the wound to stop the bleeding. You can shower and gently wash your hair and scalp. Try not to rub the area where the wound is. Please follow-up with your surgeon on Monday. Return to the emergency room if you experience worsening bleeding, swelling or pain. SUSAN ROOT MD November 06, 2021 04:14
[2021-11-06 04:26] LABS: BASOPHILS % (AUTO) 0 % (0-10); EOSINOPHILS # (AUTO) 0.1 10^3/uL (0.0-0.3); EOSINOPHILS % (AUTO) 1 % (0-10); HEMATOCRIT 39 % (40-54); HEMOGLOBIN 12.9 g/dL (13.3-17.7); LYMPHOCYTES # (AUTO) 2.3 10^3/uL (1.0-4.0); LYMPHOCYTES % (AUTO) 29 % (12-44); MEAN CORPUSCULAR HEMOGLOBIN 31 pg (25-34); MEAN CORPUSCULAR HGB CONC 34 g/dL (32-36); MEAN CORPUSCULAR VOLUME 93 fL (80-99); MEAN PLATELET VOLUME 12.2 fL (9.0-12.2); MONOCYTES % (AUTO) 13 % (0-12); NEUTROPHILS # (AUTO) 4.4 10^3/uL (1.8-7.8); NEUTROPHILS % (AUTO) 56 % (42-75); PLATELET COUNT 442 10^3/uL (130-400); WHITE BLOOD COUNT 7.9 10^3/uL (4.3-11.0)
[2021-11-06 05:15] VITALS: BP 128/76
== END 2021-11-06 05:13 | disposition home or self-care (01) ==
LOC: EDUNIT# 03:32 → ER 03:33
DX: L76.22 Postprocedural hemorrhage of skin and subcutaneous tissue following other procedure (principal); G47.30 Sleep apnea, unspecified; Z99.89 Dependence on other enabling machines and devices; Z85.46 Personal history of malignant neoplasm of prostate; Z85.828 Personal history of other malignant neoplasm of skin
CPT/HCPCS: 12011; 36415; 85025

== ENCOUNTER 2021-11-06 10:39 | Emergency (ER) | payer MEDICARE, BC ==
[~2021-11-06] VITALS: Ht 177 cm; Wt 90.0 kg
--- NOTE | 2021-11-06 12:01 | ED General ---
General Stated Complaint: POST OP/NON INJ HEAD BLEEDING Source of Information: Patient, Family Exam Limitations: No Limitations History of Present Illness Date Seen by Provider: November 06, 2021 Time Seen by Provider: 10:50 Initial Comments Here with rebleeding to biopsy site to the right forehead. He was seen here earlier today and had awefnl-ed-djhla stitch placed by Dr. Dennison for arterial bleed. He was worried because rebleeding was noted. Currently no bleeding is occurring after direct pressure. Denies other concerns. Timing/Duration: 1/2 Hour Allergies and Home Medications Allergies Coded Allergies: Faikcdn-XLD-QvY Reductase Inhibitor (Verified Allergy, Mild, 08/13/20) amiodarone (Unverified Allergy, Unknown, 06/12/17) nebivolol (Verified Adverse Reaction, Intermediate, 08/13/20) ciprofloxacin (Verified Adverse Reaction, Mild, HALLUCINATIONS, 02/28/17) clonidine (Verified Adverse Reaction, Mild, HALLUCINATIONS, 02/28/17) mirabegron (Verified Adverse Reaction, Mild, 08/18/20) ELEVATED B/P Patient Home Medication List Home Medication List Reviewed: Yes Amlodipine Besylate (Amlodipine Besylate) 5 Mg Tablet, 5 MG PO DAILY, (Reported) Entered as Reported by: GONZALO TURNER on 11/13/17 0943 Cholecalciferol (Vitamin D3) (Vitamin D3) 1,000 Unit Capsule, 1,000 UNIT PO BID, (Reported) Entered as Reported by: BILLY MAS on 03/19/17 1129 Cyanocobalamin (Vitamin B-12) (Vitamin B-12) 1,000 Mcg Tablet.er, 1,000 MCG PO DAILY, (Reported) Entered as Reported by: BILLY MAS on 03/19/17 1129 Dutasteride/Tamsulosin HCl (Dutasteride-Tamsulosin 0.5-0.4) 1 Each Cpmp.24hr, 1 CAP PO HS, (Reported) Entered as Reported by: GONZALO TURNER on 04/25/16 1042 Evolocumab (Repatha Pushtronex) 420 Mg/3.5 Ml Wear.injct, 420 MG SQ MONTHLY, (Reported) Entered as Reported by: GONZALO TURNER on 07/23/18 1037 Furosemide (Furosemide) 20 Mg Tablet, 20 MG PO DAILY PRN for SWELLING, (Reported) Entered as Reported by: GONZALO TURNER on 02/26/15 1338 Losartan Potassium (Losartan Potassium) 100 Mg Tablet, 100 MG PO DAILY, (Reported) Entered as Reported by: GONZALO TURNER on 02/26/15 1334 Metoprolol Tartrate (Metoprolol Tartrate) 100 Mg Tablet, 100 MG PO BID, (Reported) Entered as Reported by: GONZALO TUNRER on 11/13/17 0943 Multivit-Min/FA/Lycopene/Lut (Centrum Silver Tablet) 1 Each Tablet, 1 TAB PO DAILY, (Reported) Entered as Reported by: BILLY MAS on 03/19/17 1129 Nitrofurantoin Monohyd/M-Cryst (Macrobid 100 mg Capsule) 100 Mg Capsule, 1 TAB PO BID WITH MEALS Prescribed by: YOUSIF ABBOTT on 08/18/20 1046 Nitroglycerin (Nitroglycerin) 0.4 Mg Tab.subl, 0.4 MG SL UD PRN for CHEST PAIN, (Reported) Entered as Reported by: GONZALO TURNER on 06/12/17 1137 Omeprazole (Omeprazole) 20 Mg Capsule.dr, 20 MG PO DAILY, (Reported) Entered as Reported by: GONZALO TURNER on 11/13/17 0943 Ondansetron (Ondansetron Odt) 8 Mg Tab.rapdis, 8 MG PO Q6H PRN for NAUSEA/VOMITING Prescribed by: KY ANDERSON on 08/07/20 1642 Ondansetron (Ondansetron Odt) 8 Mg Tab.rapdis, 8 MG PO Q6H PRN for NAUSEA/VOMITING Prescribed by: KY ANDERSON on 08/07/20 1711 Oxybutynin Chloride (Oxybutynin Chloride ER) 15 Mg Tab.er.24, 15 MG PO DAILY, (Reported) Entered as Reported by: GONZALO TURNER on 11/13/17 0943 Sitagliptin Phosphate (Januvia) 100 Mg Tablet, 100 MG PO DAILY, (Reported) Entered as Reported by: OWEN FERREIRA on 11/29/19 0808 Tamsulosin HCl (Flomax) 0.4 Mg Cap, 0.4 MG PO DAILY Prescribed by: KY ANDERSON on 08/07/20 1711 Tamsulosin HCl (Flomax) 0.4 Mg Cap, 0.4 MG PO DAILY Prescribed by: YOUSIF ABBOTT on 08/18/20 1046 Tramadol HCl (Tramadol HCl) 50 Mg Tablet, 1-2 TAB PO Q4H PRN for PAIN-MODERATE (5-7) Prescribed by: YOUSIF ABBOTT on 08/18/20 1046 Review of Systems Review of Systems Constitutional: No chills, No fever Respiratory: no symptoms reported Cardiovascular: no symptoms reported Skin: see HPI, lesions, other (Intermittent bleeding from postop wound) Past Bfxbflc-Inojie-Gkvsro Hx Patient Social History Tobacco Use?: No Immunizations Up To Date Tetanus Booster (TDap): Unknown PED Vaccines UTD: No Seasonal Allergies Seasonal Allergies: Yes Past Medical History Surgeries: Yes (CABG,KIDNEY STONE SX X3,BILAT EYE IMPLANT/CATARACTS, PROSTATE SEED IMPLANTS) CABG, Eye Surgery, Gallbladder Respiratory: Yes Sleep Apnea Currently Using CPAP: Yes Currently Using BIPAP: No Cardiac: Yes Angina, Atrial Fibrillation, Coronary Artery Disease, High Cholesterol, Hypertension Neurological: Yes TIA Reproductive Disorders: No Sexually Transmitted Disease: No HIV/AIDS: No Genitourinary: No Kidney Infection, Prostate Problems, Bladder Infection, Kidney Stones Gastrointestinal: No Gastroesophageal Reflux, Chronic Constipation, Polyps Musculoskeletal: Yes (MILD, lyme's disease) Arthritis Endocrine: Yes (Type II) Diabetes, Non-Insulin dep HEENT: Yes (BILATERAL CATARACT SURGERY) Cataract Loss of Vision: Denies Hearing Impairment: Hard of Hearing Cancer: Yes (PROSTATE) Prostate Did You Recieve Any Treatments: Yes What Type of Treatment Did You: Radiation Psychosocial: No Integumentary: No Blood Disorders: No Family Medical History Reviewed Nursing Family Hx Cardiovascular disease 19 FATHER, Diabetes mellitus G8 SISTER Cancer, Hypertension Physical Exam Vital Signs Capillary Refill : Height, Weight, BMI Height: 5'11.00" Weight: 250lbs. 0.0oz. [id number]; 35.00 BMI Method:Stated General Appearance: No Apparent Distress, WD/WN Respiratory: Lungs Clear, Normal Breath Sounds Cardiovascular: Regular Rate, Rhythm, No Murmur Skin: Warm/Dry, Other (Wound to right forehead has sutures in place without bleeding noted currently. Does have old blood around wound and on face.) Progress/Results/Core Measures Suspected Sepsis SIRS Temperature: Pulse: Respiratory Rate: Blood Pressure / Mean: Results/Orders Vital Signs/I&O Capillary Refill : Progress Note : Progress Note Seen and evaluated. His face and hair were cleaned by nursing. We monitored the wound for over an hour without return of bleeding. We will apply small strip of antibiotic ointment and bulky dressing with Kerlix and Coban wrap to reduce chance of rebleeding. This was discussed with patient and family who agree. Discharged home with return precautions. Patient and family verbalized understanding instructions and agreement with plan. Departure Impression Primary Impression: Postoperative bleeding from incision Disposition: HOME, SELF-CARE Condition: Improved Departure-Patient Inst. Decision time for Depature: 12:00 Referrals: RYAN LANDON MD (PCP/Family) Primary Care Physician Patient Instructions: Bleeding After Surgery Add. Discharge Instructions: Keep dressing in place until tomorrow morning and then you may redress with antibiotic ointment and bandage. Do not scrub vigorously on wound but you may rinse gently and pat dry before redressing. You may use Curlex wrap to provide more bulk and pressure as needed over the next couple of days. Return for re turn of bleeding or other concerns as needed. Follow-up with your doctor for recheck and further evaluation on Monday. JOCY BUCIO MD November 06, 2021 12:01
[2021-11-06 12:09] VITALS: BP 110/67
== END 2021-11-06 12:09 | disposition home or self-care (01) ==
LOC: EDUNIT# 10:39 → ER 10:40
DX: L76.22 Postprocedural hemorrhage of skin and subcutaneous tissue following other procedure (principal); G47.30 Sleep apnea, unspecified; Z99.89 Dependence on other enabling machines and devices

== ENCOUNTER 2021-11-18 11:54 | Day surgery (SDC) | payer MEDICARE, BC ==
[~2021-11-18] VITALS: Ht 182 cm; Wt 110.0 kg
[2021-11-18] VITALS (7 sets, daily range): BP systolic 99–137; BP diastolic 54–99
--- NOTE | 2021-11-18 12:43 | Progress Note-Pre Operative ---
Pre-Operative Progress Note H&P Reviewed The H&P was reviewed, patient examined and no changes noted. Date Seen by Provider: November 18, 2021 Time Seen by Provider: 12:43 Date H&P Reviewed: November 18, 2021 Time H&P Reviewed: 12:43 Pre-Operative Diagnosis: basal cell right forehead wound JAVIER BELLO DO November 18, 2021 12:43
[2021-11-18] MEDS ORDERED: LACTATED RINGERS 1,000 ML IV PRN (12:45)
[2021-11-18] MEDS ORDERED: APIX5TAB PO (12:54)
[2021-11-18] MEDS ORDERED: ASPI-999 PO (12:54)
[2021-11-18] MEDS ORDERED: CHLO25TA22 PO (12:54)
[2021-11-18] MEDS ORDERED: ceFAZolin INJECTION 1,000 MG VIAL IV ONE (13:00)
[2021-11-18] MEDS ORDERED: MIDAZOLAM 2 MG/2 ML (VERSED) VIAL ONE (13:03)
[2021-11-18] MEDS ORDERED: PROPOFOL INJECTION 50 ML IV ONE (13:03)
[2021-11-18] MEDS ORDERED: LIDOCAINE/EPI 2% 1:200,00 (XYLOCAINE) 20 ML VIAL ONE (13:16)
--- NOTE | 2021-11-18 14:07 | Anesthesia-General Post-Op ---
MAC Patient Condition Mental Status/LOC: Same as Preop Cardiovascular: Satisfactory Nausea/Vomiting: Absent Respiratory: Satisfactory Pain: Controlled Complications: Absent Post Op Complications Complications None Follow Up Care/Instructions Patient Instructions None needed. Anesthesiology Discharge Order Discharge Order Patient is doing well, no complaints, stable vital signs, no apparent adverse anesthesia problems. No complications reported per nursing. BRANDIN LEON CRNA November 18, 2021 14:07
--- NOTE | 2021-11-18 14:12 | Discharge Inst-Simple/Standard ---
Discharge Inst-Standard Patient Instructions/Follow Up Plan of Care/Instructions/FU: 10-12 DAYS EUGENIA Activity as Tolerated: Yes Discharge Diet: Regular Diet Other Inst to Patient Follow up Appt: Make appointment for 10-12 DAYS EUGENIA. Instructions: No strenuous activity. May shower in 24 hours, no tub bath or soaking. Use incentive spirometer at home as directed. No Smoking Skin/Wound Care: KEEP AREA CLEAN AND DRY Symptoms to Report: Appetite Changes, Extremity Discoloration, Numbness/Tingling, Swelling Increased, Bleeding Excessive, Eyesight Changes, Pain Increased, Urine Color Change, Constipation(Persistent), Fever over 101 degree F, Pain/Pressure in chest, Urinating Difficulty, Cough Up/Vomit Blood, Heart Beat Irreg/Pounding, Pain/Pressure in jaw, Vaginal Bleeding Increase, Cramps in feet or legs, Lightheadedness, Pain/Pressure in shoulder, Diarrhea(Persistent), Memory Changes Suddenly, Questions/Concerns, Weight gain consecutive days, Dizziness/Fainting, Nausea/Vomiting, Shortness of Breath, Weight gain over 2 pounds If questions or concerns contact your physician Or seek help at emergency department. JAVIER BELLO DO November 18, 2021 14:12
[2021-11-18] MEDS ORDERED: ONDANSETRON 4 MG/2 ML (SDV) Z0FRAN IVP PRN (14:15)
[2021-11-18] MEDS ORDERED: morphine INJ 10 MG/ML 1ML (SYR OR VIAL) IVP ONE (14:15)
[2021-11-18] MEDS ORDERED: MEPERIDINE (DEMEROL) INJ 50 MG/ML IVP ONE (14:15)
--- NOTE | 2021-11-18 23:09 | OPERATIVE REPORT ---
DATE OF SERVICE: 11/18/2021 PREOPERATIVE DIAGNOSIS: Basal cell carcinoma wound right forehead. POSTOPERATIVE DIAGNOSIS: Basal cell carcinoma wound right forehead. PROCEDURE: Excision of right forehead basal cell carcinoma wound with ligation of artery. SURGEON: Javier Gerard DO ANESTHESIA: General. ESTIMATED BLOOD LOSS: Minimal. COMPLICATIONS: None. 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 He underwent excision of this area. The patient had bleeding, the significant where he had to go to the Emergency Department. Further sutures were placed by the Emergency Department. The patient was following up with his primary care provider who began this, removed sutures but noted significant pulsatile activity at the wound and was referred to me for further management. We discussed options and the patient understands risks and benefits of procedure and wished to proceed in the operating room. Consent was signed in the chart. DESCRIPTION OF PROCEDURE: The patient was taken to the operating suite, was prepped and draped in sterile fashion. Timeout was performed. Local anesthetic 1% lidocaine with epinephrine was used to anesthetize the right forehead area. A 15 blade scalpel was used to make an elliptical incision measuring 3 x 1.2 cm around the wound, which is scabbed over. The skin and subcutaneous tissues were removed. The area of the central portion was partially open wound with scab. Underneath, there was a small branch of the right temporal artery visible. They did have a little bit of active bleeding. Once the scab was removed using 3-0 Vicryl suture, the vessel was ligated proximally and distally. The skin was then closed using 5-0 Prolene in simple interrupted fashion. The area was washed and dried and sterile bandage was applied. The patient tolerated procedure well without any complications and taken to recovery room in stable condition. Job ID: [id number] DocumentID: [id number] Dictated Date: 11/18/2021 14:35:38 Hot Dip Plating Supervisor Date: 11/18/2021 23:08:13 Dictated By: JAVIER GERARD DO
== END 2021-11-18 15:20 | disposition home or self-care (01) ==
LOC: SDC 11:54
PROVIDERS: ATTEND Surgery
DX: C44.319 Basal cell carcinoma of skin of other parts of face (principal); I48.91 Unspecified atrial fibrillation; Z79.01 Long term (current) use of anticoagulants; Z87.891 Personal history of nicotine dependence
CPT/HCPCS: 82947; 87081

== ENCOUNTER 2021-12-21 13:22 | Outpatient (RCR) | payer MEDICARE, BC ==
[~2021-12-21 13:22] MED LIST changes: +CHLO25TA22 PO
== END 2021-12-23 | disposition home or self-care (01) ==
PROVIDERS: ATTEND Family Medicine
DX: M54.50 Low back pain, unspecified (principal); R53.1 Weakness; R26.89 Other abnormalities of gait and mobility; I11.9 Hypertensive heart disease without heart failure

== ENCOUNTER 2021-12-31 12:58 | Outpatient (RCR) | payer MEDICARE, BC | END 2022-01-23 | disposition home or self-care (01) | PROVIDERS: ATTEND Family Medicine | DX: M54.50 Low back pain, unspecified (principal); R53.1 Weakness; R26.89 Other abnormalities of gait and mobility; I11.9 Hypertensive heart disease without heart failure; E11.9 Type 2 diabetes mellitus without complications ==

== ENCOUNTER 2022-08-22 14:47 | Outpatient (RCR) | payer MEDICARE, BC | END 2022-08-23 | disposition home or self-care (01) | PROVIDERS: ATTEND Physician Assistant | DX: M54.50 Low back pain, unspecified (principal); G89.29 Other chronic pain ==

== ENCOUNTER 2022-09-09 12:53 | Outpatient (RCR) | payer MEDICARE, BC | END 2022-09-09 13:56 | disposition home or self-care (01) | PROVIDERS: ATTEND Physician Assistant | DX: M54.50 Low back pain, unspecified (principal); G89.29 Other chronic pain; I10 Essential (primary) hypertension; E11.9 Type 2 diabetes mellitus without complications ==

== ENCOUNTER → 2022-09-15 | Outpatient (CLI) | payer MEDICARE, BC | LOC: RAD 09:54 | PROVIDERS: ATTEND Physician Assistant | DX: M54.9 Dorsalgia, unspecified (principal) ==

== ENCOUNTER 2022-11-01 10:23 | Outpatient (RCR) | payer MEDICARE, BC ==
[~2022-11-01 10:23] MED LIST changes: -LOSA100T57 PO; +LOSA100T58 PO
== END 2022-11-23 | disposition home or self-care (01) ==
LOC: ONC 10:23
PROVIDERS: ATTEND Radiology Radiation Oncology
DX: C61 Malignant neoplasm of prostate (principal); I25.10 Atherosclerotic heart disease of native coronary artery without angina pectoris; I48.0 Paroxysmal atrial fibrillation; I49.5 Sick sinus syndrome; G47.33 Obstructive sleep apnea (adult) (pediatric); I10 Essential (primary) hypertension; E78.5 Hyperlipidemia, unspecified; M54.50 Low back pain, unspecified; Z79.01 Long term (current) use of anticoagulants; Z95.0 Presence of cardiac pacemaker
CPT/HCPCS: 36415; 84153

== ENCOUNTER 2023-02-13 13:53 | Emergency (ER) | payer MEDICARE, BC ==
[~2023-02-13] VITALS: Ht 182 cm; Wt 97.5 kg
--- NOTE | 2023-02-13 14:24 | ED General ---
General Chief Complaint: Cardiac/General Problems Stated Complaint: WEAK | Source of Information: Patient Exam Limitations: No Limitations History of Present Illness Date Seen by Provider: Feb 13, 2023 Time Seen by Provider: 14:17 Initial Comments Here with who reports the patient has become progressively weak and she noted that his blood pressure today was in the 80s systolic. He has had a 50 pound weight loss over the last year that patient reports is intentional although some of this is related to the fact that he has had previous tickborne illness and does not tolerate meat well. Denies recent fever chills. Denies chest pain or breathing problems. Main concern is fatigue, low blood pressure and weakness. Denies diarrhea or dysuria. Denies recent illness including upper respiratory infection. Timing/Duration: 1 Week, Getting Worse Severity: Moderate Associated Systoms: No Chest Pain, No Cough, No Diaphoresis, No Fever/Chills, No Nausea/Vomiting, No Shortness of Air; Weakness Allergies and Home Medications Allergies Coded Allergies: Jzjgtyw-XUF-UnD Reductase Inhibitor (Verified Allergy, Mild, 08/13/20) amiodarone (Unverified Allergy, Unknown, 06/12/17) nebivolol (Verified Adverse Reaction, Intermediate, 08/13/20) ciprofloxacin (Verified Adverse Reaction, Mild, HALLUCINATIONS, 02/28/17) clonidine (Verified Adverse Reaction, Mild, HALLUCINATIONS, 02/28/17) mirabegron (Verified Adverse Reaction, Mild, 08/18/20) ELEVATED B/P Patient Home Medication List Home Medication List Reviewed: Yes Apixaban (Eliquis) 5 Mg Tablet, 5 MG PO BID, (Reported) Entered as Reported by: BLAYNE CONTEH on 11/18/21 1254 Aspirin (Aspirin) 81 Mg Tab.chew, 81 MG PO DAILY, (Reported) Entered as Reported by: BLAYNE CONTEH on 11/18/21 1254 Chlorthalidone (Chlorthalidone) 25 Mg Tablet, 15 MG PO DAILY, (Reported) Entered as Reported by: BLAYNE CONTEH on 11/18/21 1254 Cholecalciferol (Vitamin D3) (Vitamin D3) 1,000 Unit Capsule, 1,000 UNIT PO BID, (Reported) Entered as Reported by: BILLY MAS on 03/19/17 1129 Cyanocobalamin (Vitamin B-12) (Vitamin B-12) 1,000 Mcg Tablet.er, 1,000 MCG PO DAILY, (Reported) Entered as Reported by: BILLY MAS on 03/19/17 1129 Dutasteride/Tamsulosin HCl (Dutasteride-Tamsulosin 0.5-0.4) 1 Each Cpmp.24hr, 1 CAP PO HS, (Reported) Entered as Reported by: GONZALO TURNER on 04/25/16 1042 Evolocumab (Repatha Pushtronex) 420 Mg/3.5 Ml Wear.injct, 420 MG SQ MONTHLY, (Reported) Entered as Reported by: GONZALO TURNER on 07/23/18 1037 Losartan Potassium (Losartan Potassium) 100 Mg Tablet, 100 MG PO DAILY, (Reported) Entered as Reported by: GONZALO TURNER on 02/26/15 1334 Metoprolol Tartrate (Metoprolol Tartrate) 100 Mg Tablet, 100 MG PO BID, (Reported) Entered as Reported by: GONZALO TURNER on 11/13/17 0943 Multivit-Min/FA/Lycopene/Lut (Centrum Silver Tablet) 1 Each Tablet, 1 TAB PO DAILY, (Reported) Entered as Reported by: BILLY MAS on 03/19/17 1129 Nitroglycerin (Nitroglycerin) 0.4 Mg Tab.subl, 0.4 MG SL UD PRN for CHEST PAIN, (Reported) Entered as Reported by: GONZALO TURNER on 06/12/17 1137 Omeprazole (Omeprazole) 20 Mg Capsule.dr, 20 MG PO DAILY, (Reported) Entered as Reported by: GONZALO TURNER on 11/13/17 0943 Oxybutynin Chloride (Oxybutynin Chloride ER) 15 Mg Tab.er.24, 15 MG PO DAILY, (Reported) Entered as Reported by: GONZALO TURNER on 11/13/17 0943 Sitagliptin Phosphate (Januvia) 100 Mg Tablet, 100 MG PO DAILY, (Reported) Entered as Reported by: OWEN FERREIRA on 11/29/19 0808 Review of Systems Review of Systems Constitutional: see HPI; No chills, No fever EENTM: No nose congestion, No throat pain Respiratory: No cough, No short of breath Cardiovascular: No chest pain; edema Gastrointestinal: No nausea, No vomiting Genitourinary: no symptoms reported, see HPI Musculoskeletal: muscle weakness Skin: No change in color, No lesions Psychiatric/Neurological: Weakness Past Scrizwm-Pbflwq-Lvpunt Hx Patient Social History Tobacco Use?: No Use of E-Cig and/or Vaping dev: No Substance use?: No Alcohol Use?: No Immunizations Up To Date Tetanus Booster (TDap): Unknown PED Vaccines UTD: No First/Initial COVID19 Vaccinat: 2020 Second COVID19 Vaccination Robert: 2020 Third COVID19 Vaccination Date: 2020 Seasonal Allergies Seasonal Allergies: Yes Past Medical History Surgery/Hospitalization HX: EXTENSIVE. Surgeries: Yes (CABG,KIDNEY STONE SX X3,BILAT EYE IMPLANT/CATARACTS, PROSTATE SEED IMPLANTS) CABG, Eye Surgery, Gallbladder Respiratory: Yes Sleep Apnea Currently Using CPAP: No Currently Using BIPAP: No Cardiac: Yes Angina, Atrial Fibrillation, Coronary Artery Disease, High Cholesterol, Hypertension Neurological: Yes TIA Reproductive Disorders: No Sexually Transmitted Disease: No HIV/AIDS: No Genitourinary: No Kidney Infection, Prostate Problems, Bladder Infection, Kidney Stones Gastrointestinal: No Gastroesophageal Reflux, Chronic Constipation, Polyps Musculoskeletal: Yes (MILD, lyme's disease) Arthritis Endocrine: Yes (Type II) Diabetes, Non-Insulin dep HEENT: Yes (BILATERAL CATARACT SURGERY) Cataract Loss of Vision: Denies Hearing Impairment: Hard of Hearing Cancer: Yes (PROSTATE) Prostate Did You Recieve Any Treatments: Yes What Type of Treatment Did You: Radiation Psychosocial: No Integumentary: No Blood Disorders: No Family Medical History Reviewed Nursing Family Hx Cardiovascular disease 19 FATHER, Diabetes mellitus G8 SISTER Cancer, Hypertension Physical Exam Vital Signs Vital Signs - First Documented 02/13/23 13:59 Temp 36.3 Pulse 62 Resp 16 B/P (MAP) 91/54 (66) Pulse Ox 97 O2 Delivery Room Air Capillary Refill : Height, Weight, BMI Height: 5'11.00" Weight: 250lbs. 0.0oz. [id number]; 33.20 BMI Method:Stated General Appearance: No Apparent Distress, WD/WN HEENT: PERRL/EOMI, Pharynx Normal Neck: Non Tender, Supple Respiratory: Lungs Clear, Normal Breath Sounds Cardiovascular: Regular Rate, Rhythm, No Murmur Gastrointestinal: Non Tender, Soft Back: Normal Inspection, No CVA Tenderness, No Vertebral Tenderness Extremity: Normal Range of Motion, Non Tender, Pedal Edema (2+ to mid tibia bilateral) Neurologic/Psychiatric: Alert, Oriented x3 Skin: Warm/Dry, Pallor Progress/Results/Core Measures Suspected Sepsis SIRS Temperature: Pulse: Respiratory Rate: Laboratory Tests 02/13/23 14:15: White Blood Count 14.4H Blood Pressure / Mean: Laboratory Tests 02/13/23 14:15: Creatinine 1.66H, Platelet Count 66L, Total Bilirubin 1.5H Results/Orders Lab Results Laboratory Tests Test 02/13/23 14:15 02/13/23 16:20 Range/Units White Blood Count 14.4 H 4.3-11.0 10^3/uL Red Blood Count 2.65 L 4.30-5.52 10^6/uL Hemoglobin 9.2 L 13.3-17.7 g/dL Hematocrit 28 L 40-54 % Mean Corpuscular Volume 106 H 80-99 fL Mean Corpuscular Hemoglobin 35 H 25-34 pg Mean Corpuscular Hemoglobin Concent 33 32-36 g/dL Red Cell Distribution Width 19.2 H 10.0-14.5 % Platelet Count 66 L 130-400 10^3/uL Mean Platelet Volume 11.9 9.0-12.2 fL Immature Granulocyte % (Auto) 2 % Neutrophils (%) (Auto) 4 L 42-75 % Lymphocytes (%) (Auto) 24 12-44 % Monocytes (%) (Auto) 69 H 0-12 % Eosinophils (%) (Auto) 0 0-10 % Basophils (%) (Auto) 0 0-10 % Neutrophils # (Auto) 0.6 L 1.8-7.8 10^3/uL Lymphocytes # (Auto) 3.5 1.0-4.0 10^3/uL Monocytes # (Auto) 10.0 H 0.0-1.0 10^3/uL Eosinophils # (Auto) 0.1 0.0-0.3 10^3/uL Basophils # (Auto) 0.0 0.0-0.1 10^3/uL Immature Granulocyte # (Auto) 0.3 H 0.0-0.1 10^3/uL Neutrophils % (Manual) 3 % Lymphocytes % (Manual) 29 % Monocytes % (Manual) 4 % Eosinophils % (Manual) 0 % Basophils % (Manual) 0 % Metamyelocytes % 1 % Atypical Lymphocytes 0 % Blast Cells 63 % Clumped Platelets NONE SEEN Percent Immature Platelet Fraction 12.9 H 0.0-7.6 % Polychromasia SLIGHT Anisocytosis MODERATE Macrocytosis MODERATE Absolute Reticulocyte Count 90 24-90 10e9/uL Percent Reticulocyte Count 3.80 H 0.50-2.40 % Sodium Level 137 135-145 MMOL/L Potassium Level 4.1 3.6-5.0 MMOL/L Chloride Level 105 98-107 MMOL/L Carbon Dioxide Level 22 21-32 MMOL/L Anion Gap 10 5-14 MMOL/L Blood Urea Nitrogen 17 7-18 MG/DL Creatinine 1.66 H 0.60-1.30 MG/DL Estimat Glomerular Filtration Rate 41 BUN/Creatinine Ratio 10 Glucose Level 134 H 70-105 MG/DL Calcium Level 9.5 8.5-10.1 MG/DL Corrected Calcium 9.5 8.5-10.1 MG/DL Total Bilirubin 1.5 H 0.1-1.0 MG/DL Aspartate Amino Transf (AST/SGOT) 22 5-34 U/L Alanine Aminotransferase (ALT/SGPT) 11 0-55 U/L Alkaline Phosphatase 43 40-136 U/L Troponin I < 0.028 <0.028 NG/ML C-Reactive Protein High Sensitivity 0.37 0.00-0.50 MG/DL B-Type Natriuretic Peptide 204.8 H <100.0 PG/ML Total Protein 6.6 6.4-8.2 GM/DL Albumin 4.0 3.2-4.5 GM/DL Urine Color YELLOW Urine Clarity CLEAR Urine pH 6.0 5-9 Urine Specific [place] 1.025 H 1.016-1.022 Urine Protein 2+ H NEGATIVE Urine Glucose (UA) NEGATIVE NEGATIVE Urine Ketones NEGATIVE NEGATIVE Urine Nitrite NEGATIVE NEGATIVE Urine Bilirubin 1+ H NEGATIVE Urine Urobilinogen 1.0 < = 1.0 MG/DL Urine Leukocyte Esterase NEGATIVE NEGATIVE Urine RBC (Auto) TRACE H NEGATIVE Urine RBC 0-2 /HPF Urine WBC RARE /HPF Urine Squamous Epithelial Cells 25-50 H /HPF Urine Crystals PRESENT H /LPF Urine Calcium Oxalate Crystals FEW H /LPF Urine Amorphous Sediment MOD MANOLO URATES H /LPF Urine Bacteria TRACE /HPF Urine Casts PRESENT /LPF Urine Hyaline Casts 10-25 H /LPF Urine Mucus MODERATE H /LPF Urine Culture Indicated NO My Orders Orders - JOCY UBCIO MD Ekg Tracing (02/13/23 14:18) Monitor-Rhythm Ecg Trace Only (02/13/23 14:18) Chest 1 View, Ap/Pa Only (02/13/23 14:18) Bnp David (02/13/23 14:18) Cbc With Automated Diff (02/13/23 14:18) Comprehensive Metabolic Panel (02/13/23 14:18) Hs C Reactive Protein (02/13/23 14:18) Troponin I David (02/13/23 14:18) Ua Culture If Indicated (02/13/23 14:18) Ed Iv/Invasive Line Start (02/13/23 14:18) Ns Iv 500 Ml (Sodium Chloride 0.9%) (02/13/23 14:30) Manual Differential (02/13/23 14:15) Immature Platelet Fraction (02/13/23 14:15) Reticulocyte Count (02/13/23 14:15) Medications Given in ED Vital Signs/I&O 02/13/23 02/13/23 13:59 18:44 Temp 36.3 Pulse 62 60 Resp 16 13 B/P (MAP) 91/54 (66) 129/62 Pulse Ox 97 98 O2 Delivery Room Air Room Air Capillary Refill : Progress Note : Progress Note Seen and evaluated. IV, labs including CBC, CMP, troponin, BMP, CRP and UA ordered. EKG and chest x-ray ordered. Normal saline 500 mL bolus ordered. Monitor patient. Differential includes electrolyte abnormality, dehydration, cardiac event, UTI 1519: Chest x-ray reviewed by me and shows no obvious acute abnormality on my interpretation. CMP shows elevated serum creatinine over baseline but otherwise grossly normal electrolytes. CBC does show several areas of dysfunction including elevated white count, low hemoglobin and low platelets which is new from previous from October 2021. UA is pending. Monitor patient. 1633: UA complete and shows concentration without infection. I did get a call from the pathologist regarding patient's cell count and smear and she has concern about acute myelogenous leukemia. I have initiated contact with Dr. Sanchez, hospitalist who asked me to speak with the oncologist. I did speak with Dr. WILLS who is recommending transfer to [facility] as the closest center that can initiate induction therapy for AML. We will attempt transfer proceedings. 1740: I have spoken with [facility] and gave report to triage nurse who took information and has called me back now. They have accepted the patient to their facility and patient has been accepted by Dr. Ball and we now have bed assignment. EMS ground ambulance is unavailable currently and patient will go by flight. Flight service notified. Pending transfer. Patient and family agree with plan. ECG Initial ECG Impression Date: Feb 13, 2023 Initial ECG Impression Time: 14:30 Initial ECG Rate: 60 Comment Ventricular paced rhythm with a rate of 60 and left axis deviation. No evidence of ST elevation [place]. Interpreted by me. Diagnostic Imaging Diagonstic Imaging: Xray Plain Films/CT/US/NM/MRI: chest Comments [facility] [place], [place] NAME: BRAULIO RAY [facility] REC#: [id number] PT STATUS: REG ER : 1940 PHYSICIAN: JOCY BUCIO MD ADMIT DATE: 02/13/23/ER Draft Date of Exam:02/13/23 CHEST 1 VIEW, AP/PA ONLY INDICATION: Weakness. COMPARISON: Exam compared to 09/26/2022. FINDINGS: Pacemaker device is stable. Sternal wire is midline. Scattered benign calcified granulomata, chronic. No consolidation, edema, effusion, or pneumothorax. IMPRESSION: Stable chest. Dictated on workstation # [id number] Dict: 02/13/23 1457 Trans: 02/13/23 1502 [id number] [id number] Interpreted by: SAMANTHA SHELTON Electronically signed by: Departure Impression Primary Impression: Acute myelogenous leukemia Qualified Codes: C92.00 - Acute myeloblastic leukemia, not having achieved remission Disposition: XFER SHT-TRM HOSP Condition: Stable Transfer Transfer Reason: Exceeds level of care Time Spoke to Accepting Phy: 17:15 Transfer Facility: [place], [place], Dr. Ball accepting Method of Transfer: Air Departure-Patient Inst. Referrals: RYAN LANDON MD (PCP/Family) Primary Care Physician JOCY BUCIO MD Feb 13, 2023 14:24
[2023-02-13 14:28] LABS: BASOPHILS % (AUTO) 0 % (0-10); EOSINOPHILS # (AUTO) 0.1 10^3/uL (0.0-0.3); EOSINOPHILS % (AUTO) 0 % (0-10); HEMATOCRIT 28 % (40-54); MEAN CORPUSCULAR HEMOGLOBIN 35 pg (25-34); MEAN CORPUSCULAR HGB CONC 33 g/dL (32-36); MEAN CORPUSCULAR VOLUME 106 fL (80-99); MEAN PLATELET VOLUME 11.9 fL (9.0-12.2)
[2023-02-13 14:30] LABS: LYMPHOCYTES # (AUTO) 3.5 10^3/uL (1.0-4.0); LYMPHOCYTES % (AUTO) 24 % (12-44); MONOCYTES % (AUTO) 69 % (0-12); NEUTROPHILS # (AUTO) 0.6 10^3/uL (1.8-7.8); NEUTROPHILS % (AUTO) 4 % (42-75); WHITE BLOOD COUNT 14.4 10^3/uL (4.3-11.0)
[2023-02-13] MEDS ORDERED: NS IV 500 ML 500 ML IV ONE (14:30)
[2023-02-13 14:37] LABS: HEMOGLOBIN 9.2 g/dL (13.3-17.7)
[2023-02-13 14:38] LABS: PLATELET COUNT 66 10^3/uL (130-400)
[2023-02-13 14:41] LABS: CHLORIDE 105 MMOL/L (98-107); POTASSIUM 4.1 MMOL/L (3.6-5.0); SODIUM 137 MMOL/L (135-145)
[2023-02-13 14:42] LABS: CALCIUM 9.5 MG/DL (8.5-10.1)
[2023-02-13 14:43] LABS: GLUCOSE 134 MG/DL (70-105); TOTAL PROTEIN 6.6 GM/DL (6.4-8.2)
[2023-02-13 14:44] LABS: CARBON DIOXIDE 22 MMOL/L (21-32)
[2023-02-13 14:45] LABS: BILIRUBIN,TOTAL 1.5 MG/DL (0.1-1.0)
[2023-02-13 14:47] LABS: ALKALINE PHOSPHATASE 43 U/L (40-136); CREATININE SERUM 1.66 MG/DL (0.60-1.30); GFR ESTIMATED 41
[2023-02-13 14:48] LABS: BUN/CREATININE RATIO 10
[2023-02-13 14:50] LABS: ALANINE AMINOTRANSFERASE 11 U/L (0-55)
--- NOTE | 2023-02-13 15:02 | Diagnostic Imaging Report ---
INDICATION: Weakness. COMPARISON: Exam compared to 09/26/2022. FINDINGS: Pacemaker device is stable. Sternal wire is midline. Scattered benign calcified granulomata, chronic. No consolidation, edema, effusion, or pneumothorax. IMPRESSION: Stable chest. Dictated by: Dictated on workstation # [id number]
[2023-02-13 15:04] LABS: ANISOCYTOSIS MODERATE; POLYCHROMASIA SLIGHT
[2023-02-13 15:05] LABS: PLATELET CLUMPS NONE SEEN
[2023-02-13 15:20] LABS: ABSOLUTE RETIC # 90 10e9/uL (24-90)
[2023-02-13 16:40] LABS: CLARITY,URINE CLEAR; COLOR,URINE YELLOW; GLUCOSE, URINE (UA) NEGATIVE (NEGATIVE); KETONES,URINE NEGATIVE (NEGATIVE); NITRITE,URINE NEGATIVE (NEGATIVE); PROTEIN,URINE 2+ (NEGATIVE)
[2023-02-13 16:41] LABS: AMORPHOUS SEDIMENT,UR MOD AMOR URATES /LPF; BACTERIA,URINE TRACE /HPF; BILIRUBIN,URINE 1+ (NEGATIVE); CALCIUM OXALATE CRYSTALS,UR FEW /LPF; LEUKOCYTE ESTERASE ,URINE NEGATIVE (NEGATIVE); RBC,URINE 0-2 /HPF; SQUAMOUS EPITHELIAL CELL,UR 25-50 /HPF; WBC,URINE RARE /HPF
[2023-02-13 17:04] LABS: NEUTROPHILS % (MANUAL) 3 %
[2023-02-13 17:05] LABS: EOSINOPHILS % (MANUAL) 0 %; LYMPHOCYTES % (MANUAL) 29 %; MONOCYTES % (MANUAL) 4 %
[2023-02-13 17:06] LABS: ATYPICAL LYMPHOCYTES 0 %; BASOPHILS % (MANUAL) 0 %; METAMYELOCYTES % 1 %
[2023-02-13 17:07] LABS: BLAST CELLS 63 %
[2023-02-13 18:44] VITALS: BP 129/62
== END 2023-02-13 18:44 | disposition short-term general hospital (02) ==
LOC: EDUNIT# 13:53 → ER 13:55
DX: C92.00 Acute myeloblastic leukemia, not having achieved remission (principal); D69.6 Thrombocytopenia, unspecified; R79.89 Other specified abnormal findings of blood chemistry
CPT/HCPCS: 36415; 71045; 80053; 81000; 83880; 84484; 85007; 85027; 85045; 85055; 86141; 93005; 93041

== ENCOUNTER 2023-03-01 10:07 | Inpatient (IN) | payer MEDICARE, BC ==
[~2023-03-01] VITALS: Ht 182.9 cm; Wt 100.7 kg
--- NOTE | 2023-03-01 12:48 | PM&R Post Admission Assessment ---
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 Currently he is very weak and we are holding his oral anticoagulation and aspirin due to severe anemia and thrombocytopenia. We will transfuse to keep his hemoglobin above 8 and his platelet count above 10,000 if need be. ER visit 02/13/23 at [facility] Here with who reports the patient has become progressively weak and she noted that his blood pressure today was in the 80s systolic. He has had a 50 pound weight loss over the last year that patient reports is intentional al though some of this is related to the fact that he has had previous tickborne illness and does not tolerate meat well. Denies recent fever chills. Denies chest pain or breathing problems. Main concern is fatigue, low blood pressure and weakness. Denies diarrhea or dysuria. Denies recent illness including upper respiratory infection. Chest x-ray reviewed by me and shows no obvious acute abnormality on my interpretation. CMP shows elevated serum creatinine over baseline but otherwise grossly normal electrolytes. CBC does show several areas of dysfunction including elevated white count, low hemoglobin and low platelets which is new from previous from October 2021. UA is pending. Monitor patient. 1633: UA complete and shows concentration without infection. I did get a call from the pathologist regarding patient's cell count and smear and she has concern about acute myelogenous leukemia. I have initiated contact with Dr. Naqvi, hospitalist who asked me to speak with the oncologist. I did speak with Dr. WILLS who is recommending transfer to [facility] as the closest center that can initiate induction therapy for AML. We will attempt transfer proceedings. 1740: I have spoken with [facility] and gave report to triage nurse who took information and has called me back now. They have accepted the patient to their facility and patient has been accepted by Dr. Ball and we now have bed assignment. EMS ground ambulance is unavailable currently and patient will go by flight. Flight service notified. Pending transfer. Patient and family agree with plan. [facility] summary: Name: Jesus Alberto López Date Of : 1940 Age: 82 y.o. 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 Type 2 diabetes mellitus (HCC) Essential (primary) hypertension Gastro-esophageal reflux disease without esophagitis Hyperlipidemia Longstanding persistent atrial fibrillation (HCC) Moderate malnutrition (HCC) Chronic back pain Physical deconditioning Resolved Problems RESOLVED: Constipation Significant Past Medical History Atrial fibrillation (HCC) Diabetes mellitus (HCC) GERD (gastroesophageal reflux disease) History of prostate cancer Hyperlipidemia Hypertension Longstanding persistent atrial fibrillation (HCC) ODETTE (obstructive sleep apnea) Allergies Ciprofloxacin, Clonidine, Amiodarone, Icswajk-bdh-wvc reductase inhibitors, Mirabegron, and Nsaids (non-steroidal anti-inflammatory drug) Brief Hospital Course Jesus Alberto López was admitted on 02/13 as a new diagnosis of acute myeloid leukemia. Bone Marrow Biopsy on 02/14 showed 56% blasts. He was started on Cycle 1 of single agent Vidaza status post Hydrea. Patient wanted to persue chemotherapy at and then transition his care to [place], [place] with Dr Neri as soon as he was stable for discharge. It was reviewed with patient that he needs to be more mobile and able to get back and forth to clinic before further chemotherapy can be considered. At discharge today he is Day 12 of Vidaza. He had a neutropenic fever on 02/17 with no clear source. Cultures have been no growth to date and he finished his 7 day course of cefepime this admission. He will be discharging on prophylaxis acyclovir, levaquin and fluconazole due to being on single agent Vidaza. His ANC at discharge is 1220 We are keeping his goal transfusion parameter to hemoglobin above 8 and platelets above 10 due to his cardiac history. Please follow up on this in clinic. Discharging to inpatient rehab in [place], [place] and will follow with Dr Neri there. He is DNR-FI. Out of hospital DNR signed prior to discharge. Items Needing Follow Up Dc to [facility] in [place]. Will follow up with Dr Neri on 03/21 Pending Labs and Follow Up Radiology Pending labs and/or radiology review at this time of discharge are listed below: if this area is blank, there are no items for review. Pending Labs Order Current Status HEMATOLOGIC NEOPLASMS GENE PANEL BY NGS, WITH INTERPRETATION, NON BLOOD In process TRANSFUSE APHERESIS PLATELETS Preliminary result TRANSFUSE RBC'S Preliminary result Medications Medication List START taking these medications acyclovir 800 mg tablet; Commonly known as: ZOVIRAX; Dose: 800 mg; Take one tablet by mouth twice daily.; Quantity: 60 tablet; Refills: 3; Notes to patient: To prevent viral infections. fluconazole 200 mg tablet; Commonly known as: DIFLUCAN; Dose: 400 mg; Take two tablets by mouth daily.; Refills: 0; Notes to patient: To prevent fungal infections. levoFLOXacin 750 mg tablet; Commonly known as: LEVAQUIN; Dose: 750 mg; Take one tablet by mouth daily.; Quantity: 30 tablet; Refills: 0; Notes to patient: To prevent bacterial infections. polyethylene glycol 3350 17 g packet; Commonly known as: MIRALAX; Dose: 17 g; Take one packet by mouth twice daily.; Quantity: 12 packet; Refills: 0 CHANGE how you take these medications apixaban 5 mg tablet; Commonly known as: ELIQUIS; Dose: 5 mg; Take one tablet by mouth twice daily. ON HOLD; Quantity: 180 tablet; Refills: 0; What changed: additional instructions; Notes to patient: HOLD taking this medication until further direction provided. aspirin 81 mg chewable tablet; Dose: 81 mg; Chew one tablet by mouth daily. ON HOLD; Quantity: 90 tablet; Refills: 0; What changed: additional instructions; Notes to patient: HOLD taking this medication until further direction provided. metoprolol tartrate 37.5 mg tablet; Dose: 37.5 mg; Take one tablet by mouth twice daily.; Quantity: 60 tablet; Refills: 3; What changed: medication strength, how much to take CONTINUE taking these medications dutasteride-tamsulosin ER 0.5-0.4 mg capsule; Commonly known as: LESLEY; Dose: 1 capsule; Refills: 0 evolocumab 420 mg/3.5 mL INFUSOR CARTRIDGE; Commonly known as: REPATHA PUSHTRONIX; Dose: 420 mg; Refills: [address] 20 mg capsule; Commonly known as: PriLOSEC; Dose: 20 mg; Refills: 0 oxybutynin XL 15 mg tablet; Commonly known as: DITROPAN XL; Dose: 15 mg; Refills: 0 vitamins, multiple Cap; Dose: 1 capsule; Refills: 0 STOP taking these medications chlorthalidone 25 mg tablet; Commonly known as: HYGROTON CHOLEcalciferoL (vitamin D3) 1,000 units tablet cyanocobalamin (vitamin B-12) 1,000 mcg tablet JANUVIA 100 mg tablet; Generic drug: SITagliptin phosphate losartan 100 mg tablet; Commonly known as: COZAJAMEE Return Appointments and Scheduled Appointments No appointment scheduled Consults, Procedures, Diagnostics, Micro, Pathology Consults: Cardiology, Psychiatry and wound Surgical Procedures & Dates: None Significant Diagnostic Studies, Micro and Procedures: noted in brief hospital course Significant Pathology: noted in brief hospital course Nutrition: Malnutrition present on admission ICD-10 code E44: Chronic illness/Moderate non-severe malnutrition Energy intake: Less than 75% of estimated energy requirement for 1 month or more, Weight loss: 10% x 6 months Loss of Subcutaneous Fat: (pending per pt request) Muscle Wasting: (pending per pt request) Edema: Yes Moderate Lower extremities Malnutrition Interventions: Assisted in nutrition intake goal setting; Protein shakes TID and additional high protein meals/snacks Wound: Wounds 02/13/232107 Pressure injury Coccyx;Sacrum (Active) 02/13/232107 Coccyx;Sacrum Wound Type: Pressure injury Pressure Injury Stages (For Pressure Injury Wound Type Only): Stage 1 Pressure Injury Present On Inpatient Admission: Y If this pressure injury is suspected to be device related, please select the device:: None Wound/Pressure Injury Orientation: Wound Location Comments: ZXWound Location: Wound Description (Comments): Wound Type:: Image 02/14/23 1135 Wound Dressing Status Open to air 03/01/23 0905 Wound Dressing and / or Treatment A & D Ointment 03/01/23904 Wound Drainage Amount None 03/01/23904 Wound Base Assessment Purple;Bolan;Red;Ruff;Dry 03/01/23904 Surrounding Skin Assessment Red;Purple;Dry 03/01/23904 Wound Site Closure Open to Air 03/01/23904 Wound Status (Wound Team Only) Closed 02/14/23 113 Wound Length (cm) (Wound Team Only) 0 cm 02/14/23 113 Wound Width (cm) (Wound Team Only) 0 cm 02/14/23 113 Wound Depth (cm) (Wound Team Only) 0 cm 02/14/23 113 Wound Surface Area (cm^2) (Wound Team Only) 0 cm^2 02/14/23 1135 Wound Volume (cm^3) (Wound Team Only) 0 cm^3 02/14/23 1135 Number of days: 16 Wounds 02/26/23 08 Moisture associated skin damage Groin (Active) 02/26/23 08 Groin Wound Type: Moisture associated skin damage Pressure Injury Stages (For Pressure Injury Wound Type Only): Stage 2 Pressure Injury Present On Inpatient Admission: If this pressure injury is suspected to be device related, please select the device:: None Wound/Pressure Injury Orientation: Wound Location Comments: ZXWound Location: Wound Description (Comments): Wound Type:: Wound Dressing Status Open to air 03/01/23904 Wound Dressing and / or Treatment Interdry AG 03/01/23904 Wound Drainage Amount None 03/01/23904 Wound Base Assessment Dry;Red;Bleeding 03/01/23904 Surrounding Skin Assessment Bolan;Red 03/01/23904 Wound Site Closure Open to Air 03/01/23904 Number of days: 3 Wounds 02/28/23 09 Abrasion Medial;Upper Back (Active) 02/28/23 09 Back Wound Type: Abrasion Pressure Injury Stages (For Pressure Injury Wound Type Only): Pressure Injury Present On Inpatient Admission: If this pressure injury is suspected to be device related, please select the device:: Wound/Pressure Injury Orientation: Medial;Upper Wound Location Comments: ZXWound Location: Wound Description (Comments): Wound Type:: Wound Dressing Status Open to air 03/01/23904 Wound Dressing and / or Treatment A & D Ointment 03/01/23904 Wound Drainage Amount None 03/01/23904 Wound Base Assessment Dry 03/01/23904 Surrounding Skin Assessment Red 03/01/23904 Wound Site Closure None;Open to Air 03/01/23904 Number of days: 1 Discharge Disposition, Condition Patient Disposition: Rehab Facility (Not [facility]) [62] Condition at Discharge: Stable Code Status Code Status History Date Active Date Inactive Code Status Order ID [id number]/17/2023 [id number] Full Code [id number] Virgen Hill, HEAD OF MARKETING-UTILIZATION MANAGEMENT UM NURSE Inpatient Patient Instructions Activity Activity as Tolerated As directed It is important to keep increasing your activity level after you leave the hospital. Moving around can help prevent blood clots, lung infection (pneumonia) and other problems. Gradually increasing the number of times you are up moving around will help you return to your normal activity level more quickly. Continue to increase the number of times you are up to the chair and walking daily to return to your normal activity level. Begin to work toward your normal activity level at discharge Diet Other Diet As directed Neutropenic diet. For questions about your diet, you can call a dietitian at [phone]. Avoid the following: Raw/undercooked meats, fish; raw grain products such as raw oats. Raw eggs/honey. Unboiled well water. Non-pasteurized fruit/vegetable juice, unraw milk products Non-pasteurized, mold cheeses (such as blue cheese, gorgonzola, etc.) Unrefrigerated cream filled pastries. Herbal supplements. Unwashed raw fruits/veggies. Unroasted nuts Wounds/Lines/Drains PICC Line Care As directed Home Care Instructions: *Catheter must be covered with plastic wrap before showering. Never submerge the catheter in a bathtub, hot tub, or swimming pool. *The dressing and biopatch must be changed every 7 days or as needed if it becomes wet or soiled. The injection caps should be changed every 7 days. Please refer to your physician, clinic, or home health nurse for dressing or cap change instructions. Wound Care As directed Apply A&D ointment to buttocks and coccyx. Interdry to groin area to keep dry. Area on buttocks pink and blanchable. Signs and Symptoms: Report these signs and symptoms Report These Signs and Symptoms As directed Please contact your doctor if you have any of the following symptoms: temperature higher than 100.4 degrees F, uncontrolled pain, persistent nausea and/or vomiting, difficulty breathing, chest pain, severe abdominal pain, headache, unable to urinate, unable to have bowel movement, or drainage with a foul odor Additional Orders: Case Management, Supplies, Home Health Home Health/DME None Signed: KINGA Pratt 03/01/2023 cc: Primary Care Physician: Bri Shetty Verified Referring physicians: Vicente Holder MD Additional provider(s): Did we miss something? If additional records are needed, please fax a request on office letterhead to [phone]. Please include the patient's name, date of , fax number and type of information needed. Additional request can be made by email at [email or web address]. For general questions of information about electronic records sharing, call [phone]. Cosigned by: Britt Stevens MD at 03/01/231708 08 Past Jrieabx-Ridldw-Hdxfxc Hx Past Med/Social Hx: Reviewed Nursing Past Med/Soc Hx, Reviewed and Corrections made Patient Social History Marrital Status: Employed/Student: retired Alcohol Use: Denies Use Smoking Status: Former Smoker Former Smoker, Quit: Jun 12, 1978 Type Used: Cigarettes 2nd Hand Smoke Exposure: No Recent Hopitalizations: No Immunizations Up To Date Tetanus Booster (TDap): Unknown Pediatric: No Date of Pneumonia Vaccine: Mar 26, 2019 Date of Influenza Vaccine: Mar 26, 2020 Seasonal Allergies Seasonal Allergies: Yes Past Medical History Surgeries: CABG, Eye Surgery, Gallbladder Respiratory: Sleep Apnea Currently Using CPAP: No Currently Using BIPAP: No Cardiac: Angina, Atrial Fibrillation, Coronary Artery Disease, High Cholesterol, Hypertension Neurological: TIA Reproductive: No Sexually Transmitted Disease: No HIV/AIDS: No Genitourinary: Kidney Infection, Prostate Problems, Bladder Infection, Kidney Stones Gastrointestinal: Gastroesophageal Reflux, Chronic Constipation, Polyps Musculoskeletal: Arthritis Endocrine: Diabetes, Non-Insulin dep HEENT: Cataract Loss of Vision: Denies Hearing Impairment: Hard of Hearing Cancer: Leukemia (02/13/23 acute myeloid leukemia), Prostate Did You Recieve Any Treatments: Yes What Type of Treatment Did You: Radiation History of Blood Disorders: No Family History Cardiovascular disease 19 FATHER, Diabetes mellitus G8 SISTER Cancer, Hypertension PM&R Allergy/Meds/Data Review Allergies Coded Allergies: Rgggixs-JMS-VkV Reductase Inhibitor (Verified Allergy, Mild, 08/13/20) amiodarone (Unverified Allergy, Unknown, 06/12/17) nebivolol (Verified Adverse Reaction, Intermediate, 08/13/20) ciprofloxacin (Verified Adverse Reaction, Mild, HALLUCINATIONS, 02/28/17) clonidine (Verified Adverse Reaction, Mild, HALLUCINATIONS, 02/28/17) mirabegron (Verified Adverse Reaction, Mild, 08/18/20) ELEVATED B/P Home Medications Scheduled Acyclovir (Acyclovir), 800 MG PO BID, (Reported) Apixaban (Eliquis), 5 MG PO BID, (Reported) Aspirin (Aspirin), 81 MG PO DAILY, (Reported) Dutasteride/Tamsulosin HCl (Dutasteride-Tamsulosin 0.5-0.4), 1 EACH PO WITH DINNER, (Reported) Evolocumab (Repatha Pushtronex), 3.5 ML SQ MONTHLY, (Reported) Fluconazole (Fluconazole), 400 MG PO DAILY, (Reported) Levofloxacin (Levofloxacin), 750 MG PO DAILY, (Reported) Metoprolol Tartrate (Metoprolol Tartrate), 37.5 MG PO BID, (Reported) Multivit-Min/FA/Lycopene/Lut (Centrum Silver Tablet), 1 TAB PO DAILY, (Reported) Omeprazole (Omeprazole), 20 MG PO DAILY, (Reported) Oxybutynin Chloride (Oxybutynin Chloride ER), 15 MG PO DAILY, (Reported) Polyethylene Glycol 3350 (Miralax), 17 GM PO BID, (Reported) Discontinued Medications Apixaban (Eliquis), 5 MG PO BID, (Reported) Discontinued Reason: No Longer Taking Aspirin (Aspirin), 81 MG PO DAILY, (Reported) Discontinued Reason: No Longer Taking Chlorthalidone (Chlorthalidone), 15 MG PO DAILY, (Reported) Discontinued Reason: No Longer Taking Cholecalciferol (Vitamin D3) (Vitamin D3), 1,000 UNIT PO BID, (Reported) Discontinued Reason: No Longer Taking Cyanocobalamin (Vitamin B-12) (Vitamin B-12), 1,000 MCG PO DAILY, (Reported) Discontinued Reason: No Longer Taking Dutasteride/Tamsulosin HCl (Dutasteride-Tamsulosin 0.5-0.4), 1 CAP PO HS, (Reported) Discontinued Reason: No Longer Taking Evolocumab (Repatha Pushtronex), 420 MG SQ MONTHLY, (Reported) Discontinued Reason: No Longer Taking Losartan Potassium (Losartan Potassium), 100 MG PO DAILY, (Reported) Discontinued Reason: No Longer Taking Metoprolol Tartrate (Metoprolol Tartrate), 100 MG PO BID, (Reported) Discontinued Reason: No Longer Taking Nitroglycerin (Nitroglycerin), 0.4 MG SL UD PRN for CHEST PAIN, (Reported) Discontinued Reason: No Longer Taking Sitagliptin Phosphate (Januvia), 100 MG PO DAILY, (Reported) Discontinued Reason: No Longer Taking Current Medications Current Medications Reviewed Review of Systems Constitutional: see HPI, dizziness, weakness EENTM: no symptoms reported Respiratory: dyspnea on exertion Cardiovascular: edema Gastrointestinal: nausea Genitourinary: decreased output Musculoskeletal: back pain, joint pain Skin: other (pressure ulcers) Psychiatric/Neurological: Depressed All Other Systems Reviewed Negative Unless Noted: Yes Physical Exam Physical Exam Vital Signs Capillary Refill : Height, Weight, BMI Height: 5'11.00" Weight: 250lbs. 0.0oz. [id number]; 29.00 BMI Method:Stated General Appearance: No Apparent Distress, WD/WN, Chronically ill Eyes: Bilateral Eye Normal Inspection, Bilateral Eye PERRL HEENT: PERRL/EOMI, Normal ENT Inspection, Pharynx Normal Neck: Full Range of Motion, Normal Inspection, Non Tender, Supple, Carotid Bruit Respiratory: Chest Non Tender, Lungs Clear, Normal Breath Sounds, No Accessory Muscle Use, No Respiratory Distress Cardiovascular: Regular Rate, Rhythm, No Edema, No Gallop, No JVD, No Murmur, Normal Peripheral Pulses Gastrointestinal: Normal Bowel Sounds, No Organomegaly, No Pulsatile Mass, Non Tender, Soft Back: Normal Inspection, No CVA Tenderness, No Vertebral Tenderness Extremity: Normal Capillary Refill, Normal Inspection, Normal Range of Motion, Non Tender, No Calf Tenderness, No Pedal Edema Neurologic/Psychiatric: Alert, Oriented x3, cylinder dyer II-XII Norm as Tested, Abnormal Gait, Depressed Affect, Motor Weakness (generalized) Skin: Normal Color, Warm/Dry Lymphatic: No Adenopathy PM&R Medical Assessment & Plan REHAB/MEDICAL ASSESSMENT AND PLAN: REHAB IMPAIRMENT GROUP: Neuro condition ETIOLOGIC DIAGNOSIS: Critical illness myopathy The comorbidities that impact the patients function and/or functional outcome by: Recent leukemia induction chemotherapy induced myopathy, Severe anemia, Thrombocytopenia, Bleeding risk REHAB PLAN: The patient is being admitted to our comprehensive inpatient rehabilitation facility and can tolerate the intensity of service consisting of at least: 180 minutes of therapy a day, 5 out of 7 days a week Rehab treatment will consist of: PT OT will focus on regaining function with use of AD in order to build stamina with ambulation and increase independence in ADL's The patient/family has a good understanding of our discharge process and will be nefit from an interdisciplinary inpatient rehabilitation program. The patient has potential to make improvement and is in need of at least two of the following multidisciplinary therapies including but not limited to physical, occupational, speech, and prosthetics and orthotics. Additionally the patient will need services from respiratory, nutritional services, wound care, psychol ogy, etc. (Customize this to each patient). Given the patients complex condition and risk of further medical complications, rehabilitation services cannot be safely or effectively provided at a lower level of care such as a correction facility. BARRIERS TO DISCHARGE: severe myopathy ESTIMATED LOS: 10 days DISPOSITION: Home RELEVANT CHANGES SINCE PREADMISSION SCREENING: I have compared the patients medical and functional status at the time of the preadmission screening and there are: no changes PROGNOSIS: Fair REHABILITATION GOALS: 1. PT OT will focus on regaining function with use of AD in order to build stamina with ambulation and increase independence in ADL's All the above goals were reviewed with the patient and he/she is in agreement. By signing this document, I acknowledge that I have personally performed a full physical examination on this patient within 24 hours of admission to this inpatient rehabilitation facility and have determined the patient to be able to tolerate the above course of treatment at an intensive level for a reasonable period of time. I will be completing a detailed individualized Plan of Care for this patient by day #4 of the patients stay based upon the Preadmission Screen, the Post-Admission Evaluation, and the therapy evaluations. Admission Dx/Comorbidities: (1) Myopathy ICD Codes: G72.9 - Myopathy, unspecified (2) Acute myelogenous leukemia Status: Acute ICD Codes: C92.00 - Acute myeloblastic leukemia, not having achieved remission (3) Atrial fibrillation Status: Chronic ICD Codes: I48.91 - Unspecified atrial fibrillation (4) CAD (coronary artery disease) ICD Codes: I25.10 - Atherosclerotic heart disease of [place] coronary artery without angina pectoris (5) HTN (hypertension) Status: Chronic ICD Codes: I10 - ESSENTIAL (PRIMARY) HYPERTENSION (6) BPH (benign prostatic hyperplasia) Status: Chronic ICD Codes: N40.0 - Benign prostatic hyperplasia without lower urinary tract symptoms Assessment/Plan Assessment and Plan Assess & Plan/Chief Complaint Assessment: Critical illness myopathy AML Anemia Thrombocytopenia AF CAD BPH HLP HTN Plan: Monitor closely Fall risk Pain meds Transfuse prn Hold ASA and OAC JANEY NAQVI DO Mar 01, 2023 12:48
[2023-03-01] MEDS ORDERED: CALCIUM CARBONATE 500 MG CHEW TABLET PO PRN (13:00)
[2023-03-01] MEDS ORDERED: LACTULOSE SYRUP 10GM/15ML 30ML UDC PO PRN (13:00)
[2023-03-01] MEDS ORDERED: MELATONIN 3 MG TABLET PO PRN (13:00)
[2023-03-01] MEDS ORDERED: diphenhydrAMINE 25 MG TABLET PO PRN (13:00)
[2023-03-01] MEDS ORDERED: Sodium Phosphate/Sodium Biphosphate ADULT enema PR PRN (13:00)
[2023-03-01] MEDS ORDERED: DOCUSATE SODIUM 100 MG CAPSULE PO PRN (13:00)
[2023-03-01] MEDS ORDERED: ALPRAZolam 0.25 MG TABLET PO PRN (13:00)
[2023-03-01] MEDS ORDERED: LOPERAMIDE 2 MG CAPSULE PO PRN (13:00)
[2023-03-01] MEDS ORDERED: ONDANSETRON 4 MG ORAL DISSOLVE TABLET PO PRN (13:00)
[2023-03-01] MEDS ORDERED: BISACODYL 10 MG SUPPOSITORY PR PRN (13:00)
[2023-03-01] MEDS ORDERED: guaiFENesin/CODEINE 10ML UDC PO PRN (13:00)
[2023-03-01] MEDS ORDERED: ACETAMINOPHEN 325 MG TABLET PO PRN (13:00)
--- OUTSIDE RECORDS SUMMARY | 2023-03-01 14:26 | XMS REPORT ---
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 02/13/2023 02/13/2023 Aortocoronary bypass status 02/13/2023 02/13/2023 Bilateral primary osteoarthritis of hip 02/13/2023 02/13/2023 Chronic atrial fibrillation 02/13/2023 02/13/2023 Sciatica 10/08/2018 02/13/2023 Type 2 diabetes mellitus 01/16/2014 02/13/2023 Essential (primary) hypertension 11/14/201302/13 Gastro-esophageal reflux disease without esophagitis 06/0502/13/2023 Depression 05/25/2011 02/13/2023 Hyperlipidemia 05/25/2011 02/13/2023 Current Oncology Plans OP HEME AZACITIDINE SQ (7 DAY)* Plan Start Date: 02/17/2023 Plan Provider: Male, Britt Suazo MD Linked Problems 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) Next Day (Day 2, Cycle 2 - Planned for ) Treatment Medications Current Day (Day 1, Cycle 2 - Planned for 03/17/2023) azaCITIDine (VIDAZA) 100 mg/4 mL injecti on 162.5 mgONDANSETRON 4 MG PO TBDI azaCITIDine azaCITIDine (VIDAZA) 100 mg /4 mL (VIDAZA)ondansetron (ZOFRAN injection 162.5 mgondans etron ODT) (ZOFRAN ODT) rapid dissolve tablet 16 mg Past Plans Discontinue Reason Plan Provider Cycles Plan Name Start Date Discontinue Date Treatment Medications Therapy Complete Male, Britt Suazo MD Treatment not starte d IP HYDROXYUREA 02/14/2023 02/19/2023 hydroxyurea (HYDREA) Radiation Treatments * No radiation treatments are documented for this patient in [facility]. Treatments may have been administered in another system. Resolved Problems Resolved Date Problem Noted Date Diagnosed Date 02/27/2023 Constipation 02/17/2023
--- OUTSIDE RECORDS SUMMARY | 2023-03-01 14:26 | XMS REPORT | Clinical Summary ---
Author Author [facility] Organization [facility] Address Unknown Phone Unavailable Care Team Providers Care Clean Out Driller Name Role Phone Bri Shetty MD PCP Source Comments Some departments are not documenting in the electronic medical record. If you d o not see the information that you expected, contact Release of Information in [facility] Information Management department at [phone] for further assistan ce in locating additional records.[facility] Allergies Comments Active Allergy Reactions Criticality Noted Date Pt not interested in trying this med again Amiodarone FEVER Medium 05/11/2020 States he has tolerated levaquin before Ciprofloxacin HALLUCINATION High 07/07/2015 S Clonidine HALLUCINATION High 02/13/2023 S Mirabegron UNKNOWN Low 02/13/2023 GI toxicity per pt Nsaids (Non-Steroidal STOMACH UPSET Low 02/15/20 23 Anti-Inflammatory Drug) Ppbuofo-Auh-Tmj Reductase MUSCLE PAIN Medium 01/25 Inhibitors Medications End Date Status Medication Sig Dispensed Refills Start Date Active omeprazole DR (PRILOSEC) Take one 0 20 mg capsule capsule by mouth daily before breakfast. Active oxybutynin XL (DITROPAN Take one 0 XL) 15 mg tablet tablet by mouth daily. Active evolocumab (REPATHA Inject 3.5 mL 0 PUSHTRONIX) 420 mg/3.5 mL under the INFUSOR CARTRIDGE skin every 30 days. Last received week of 02/06/2023 Active dutasteride-tamsulosin ER Take one 0 (LESLEY) 0.5-0.4 mg capsule by capsule mouth daily with dinner. Active vitamins, multiple cap Take one 0 capsule by mouth daily. Active apixaban (ELIQUIS) 5 mg Take one 180 tablet 0 tablet tablet by 3 mouth twice daily. ON HOLD Active aspirin 81 mg chewable Chew one 90 tablet 0 tablet tablet by 3 mouth daily. ON HOLD Active metoprolol tartrate 37.5 Take one 60 tablet 3 0 mg tablet tablet by 3 mouth twice daily. Active polyethylene glycol 3350 Take one 12 packet 0 0 (MIRALAX) 17 g packet packet by 3 mouth twice daily. Active fluconazole (DIFLUCAN) Take two 0 02 200 mg tablet tablets by 3 mouth daily. Active acyclovir (ZOVIRAX) 800 Take one 60 tablet 3 mg tablet tablet by 3 mouth twice daily. Active levoFLOXacin (LEVAQUIN) Take one 30 tablet 0 750 mg tablet tablet by 3 mouth daily. 02/13/2023 Discontinued (Error) losartan (COZAAR) 100 mg Take one 90 tablet 4 0 tablet tablet by 3 mouth daily. 03/01/2023 Discontinued SITagliptin phosphate Take one 90 tablet 3 (JANUVIA) 100 mg tablet tablet by mouth daily. 03/01/2023 Discontinued metoprolol tartrate Take one 0 (LOPRESSOR) 100 mg tablet tablet by mouth twice daily. 02/28/2023 Discontinued (Reorder) apixaban (ELIQUIS) 5 mg Take one 0 tablet tablet by mouth twice daily. 02/28/2023 Discontinued (Reorder) aspirin 81 mg chewable Chew one 0 tablet tablet by mouth daily. 03/01/2023 Discontinued chlorthalidone (HYGROTON) Take one-half 0 25 mg tablet tablet by mouth daily. 03/01/2023 Discontinued CHOLEcalciferoL (vitamin Take one 0 D3) 1,000 units tablet tablet by mouth twice daily. 03/01/2023 Discontinued cyanocobalamin (vitamin Take one 0 B-12) 1,000 mcg tablet tablet by mouth daily. 03/01/2023 Discontinued losartan (COZAAR) 100 mg Take one 0 tablet tablet by mouth daily. 02/28/2023 Discontinued posaconazole EC (NOXAFIL) Take three 90 tablet 3 100 mg tablet tablets by 3 mouth daily with breakfast. Take with food. 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 02/13/2023 02/13/2023 Aortocoronary bypass status 02/13/2023 02/13/2023 Bilateral primary osteoarthritis of hip 02/13/2023 02/13/2023 Chronic atrial fibrillation 02/13/2023 02/13/2023 Sciatica 10/08/2018 02/13/2023 Type 2 diabetes mellitus 01/16/2014 02/13/2023 Essential (primary) hypertension 11/14/201302/13 Gastro-esophageal reflux disease without esophagitis 06/0502/13/2023 Depression 05/25/2011 02/13/2023 Hyperlipidemia 05/25/2011 02/13/2023 Resolved Problems Resolved Date Problem Noted Date Diagnosed Date 02/27/2023 Constipation 02/17/2023 Encounters Care Team Description Date Type Department Discharge Disposition: Home or Self Care 02/17/2023 Hospital Vascular Access Tea m: 2:15 PM Encounter [facility] CDT - [address] [facility] 02/17/2023 Level 1, [email or web address] 11:59 PM [place] CDT [address] Fartun Mackenzie, SHYAM-VP [employer] Discharge Disposition: Home or Self Care 02/17/2023 Hospital Vascular Access Tea m: 1:30 PM Encounter [facility] CDT - [address] [facility] 02/17/2023 Level 1, [email or web address] 2:14 PM [place] CDT [address] Discharge Disposition: Home or Self Care 02/17/2023 Hospital Imaging: Medical Pa vilion 12:34 PM Encounter [address] CDT - Level 2 02/17/2023 [place], [place] 1:29 PM [id number] CDT [phone] Male, MD Julius Baron Kenneth P, DO 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) Discharge Disposition: Rehab Facility (Not [facility]) 02/13/2023 Hospital Patient Care Unit C A10: 8:09 PM Encounter [facility] - [address] 03/01/2023 Level 10 12:00 PM [place] CDT [id number] from Last 3 Months Surgical History Surgery Date Site/Laterality Comments HX CORONARY ARTERY BYPASS GRAFT HX CATARACT REMOVAL Medical History Medical History Date Comments Hypertension Atrial fibrillation (HCC) Diabetes mellitus (HCC) ODETTE (obstructive sleep apnea) GERD (gastroesophageal reflux disease) Hyperlipidemia History of prostate cancer Longstanding persistent atrial 02/14/2023 fibrillation (HCC) Family History Medical History Relation Name Comments Lymphoma Child Cancer-Hematologic Father Relation Name Status Comments Child Father Social History Date Tobacco Use Types Packs/Day Years Used Smoking Tobacco: Former Cigarettes Smokeless Tobacco: Never Tobacco Cessation: Counseling Given: Not Answered Date Recorded Alcohol Use Answer Alcohol Use Not on file Male: 9+ ounces (15+ Standard Drinks) per week 0 Threshold Female: 4.8+ ounces (8+ Standard Drinks) per week No t on file Threshold Date Recorded Sex and Gender Information Value 02/14/2023 9:32 AM CDT Sex Assigned at Male 02/14/2023 9:32 AM CDT Gender Identity Male Sexual Orientation Not on file Obstetrics History Last Filed Vital Signs Reading Time Taken Comments Vital Sign 128/54 03/01/2023 11:44 AM CDT Blood Pressure 70 03/01/2023 11:44 AM CDT Pulse 36.4 C (97.6 F) 03/01/2023 11:44 AM CDT Temperature - - Respiratory Rate 93% 03/01/2023 9:04 AM CDT Oxygen Saturation - - Inhaled Oxygen Concentration 99.8 kg (220 lb 0.3 oz) 03/01/2023 9:04 AM CDT Weight 182.9 cm (6') 02/15/2023 2:47 PM CDT Height 29.84 02/15/2023 2:47 PM CDT Body Mass Index Plan of Treatment Health Maintenance Due Date Last Done Comments DIABETES MICROALBUMIN TO 1940 CREATININE RATIO MEDICARE ANNUAL WELLNESS 1940 VISIT COVID-19 VACCINE (#1) 1945 PNEUMOCOCCAL VACCINE 65+ 1946 YRS (1 - PCV) DIABETES DILATED EYE EXAM 1958 DIABETES FOOT EXAM 1958 (.dmfoot) PHYSICAL (COMPREHENSIVE) 1958 EXAM SHINGLES RECOMBINANT 1959 VACCINE (1 of 2) DTAP/TDAP VACCINES (1 - 05/23/2018 05/22/2018 Tdap) INFLUENZA VACCINE (#1) 2023 04/19/2022, 04/09/2021, 03/10/2021, Additional history exists DIABETES HBA1C 08/16/2023 02/13/2023 DIABETES EGFR SCREEN 03/01/2024 03/01/2023 ADVANCED CARE PLANNING Completed 02/17/2023 DISCUSSION AND DOCUMENTATION Goals Goal Patient Associated Recent Progress Patient-Stat Aut hor Goal Type Problems ed? Improve quality of life Hospital On track (02/14/2023 [place], 9:24 AM CDT) building energy consultant Comments Procedure Name Priority Date/Time Associated Diag nosis PHOSPHORUS CELLULAR Routine 03/01/2023 THERAPEUTICS 4:17 AM CDT MAGNESIUM CELLULAR Routine 03/01/2023 THERAPEUTICS 4:17 AM CDT COMPREHENSIVE METABOLIC Routine 03/01/2023 PANEL CELLULAR 4:17 AM CDT THERAPEUTICS CBC AND DIFF CELLULAR Routine 03/01/2023 THERAPEUTICS 4:17 AM CDT HC PHOSPHOROUS, SERUM Routine 02/28/2023 (PO4CT) 3:00 AM CDT HC MAGNESIUM (MGCT) Routine 02/28/2023 3:00 AM CDT HC COMPREHENSIVE Routine 02/28/2023 METABOLIC PANEL (CH12CT) 3:00 AM CDT HC CBC W AUTOMATED DIFF Routine 02/28/2023 (HPDCT) 3:00 AM CDT TRANSFUSE APHERESIS Routine 02/27/2023 PLATELETS 6:37 AM CDT PREPARE APHERESIS Routine 02/27/2023 PLATELETS 4:20 AM CDT HC PHOSPHOROUS, SERUM Routine 02/27/2023 (PO4CT) 3:27 AM CDT HC MAGNESIUM (MGCT) Routine 02/27/2023 3:27 AM CDT HC COMPREHENSIVE Routine 02/27/2023 METABOLIC PANEL (CH12CT) 3:27 AM CDT HC CBC W AUTOMATED DIFF Routine 02/27/2023 (HPDCT) 3:27 AM CDT HC URIC ACID Routine 02/26/2023 3:32 AM CDT HC PHOSPHOROUS, SERUM Routine 02/26/2023 (PO4CT) 3:32 AM CDT HC MAGNESIUM (MGCT) Routine 02/26/2023 3:32 AM CDT HC COMPREHENSIVE Routine 02/26/2023 METABOLIC PANEL (CH12CT) 3:32 AM CDT HC CBC W AUTOMATED DIFF Routine 02/26/2023 (HPDCT) 3:32 AM CDT TRANSFUSE RBC'S Routine 02/25/2023 5:54 AM CDT HC ABO GROUP Routine 02/25/2023 3:01 AM CDT HC URIC ACID Routine 02/25/2023 3:01 AM CDT HC PHOSPHOROUS, SERUM Routine 02/25/2023 (PO4CT) 3:01 AM CDT HC MAGNESIUM (MGCT) Routine 02/25/2023 3:01 AM CDT HC COMPREHENSIVE Routine 02/25/2023 METABOLIC PANEL (CH12CT) 3:01 AM CDT HC CBC W AUTOMATED DIFF Routine 02/25/2023 (HPDCT) 3:01 AM CDT HC VITAMIN B12 Add on 02/24/2023 3:18 AM CDT HC URIC ACID Routine 02/24/2023 3:18 AM CDT HC PHOSPHOROUS, SERUM Routine 02/24/2023 (PO4CT) 3:18 AM CDT HC MAGNESIUM (MGCT) Routine 02/24/2023 3:18 AM CDT HC COMPREHENSIVE Routine 02/24/2023 METABOLIC PANEL (CH12CT) 3:18 AM CDT HC CBC W AUTOMATED DIFF Routine 02/24/2023 (HPDCT) 3:18 AM CDT HC PHOSPHOROUS, SERUM Routine 02/23/2023 5:00 PM CDT CHEST SINGLE VIEW Routine 02/23/2023 1:43 PM CDT HC 25-OH VITAMIN D Routine 02/23/2023 4:08 AM CDT HC URIC ACID Routine 02/23/2023 4:08 AM CDT HC FIBRINOGEN Routine 02/23/2023 4:08 AM CDT HC PHOSPHOROUS, SERUM Routine 02/23/2023 (PO4CT) 4:08 AM CDT HC MAGNESIUM (MGCT) Routine 02/23/2023 4:08 AM CDT HC COMPREHENSIVE Routine 02/23/2023 METABOLIC PANEL (CH12CT) 4:08 AM CDT HC PTT(APTT) Routine 02/23/2023 4:08 AM CDT HC PT(INR) Routine 02/23/2023 4:08 AM CDT HC CBC W AUTOMATED DIFF Routine 02/23/2023 (HPDCT) 4:08 AM CDT HC POSACONAZOLE LC-MS/MS Routine 02/22/2023 3:59 AM CDT HC URIC ACID Routine 02/22/2023 3:59 AM CDT HC FIBRINOGEN Routine 02/22/2023 3:59 AM CDT HC PHOSPHOROUS, SERUM Routine 02/22/2023 (PO4CT) 3:59 AM CDT HC MAGNESIUM (MGCT) Routine 02/22/2023 3:59 AM CDT HC COMPREHENSIVE Routine 02/22/2023 METABOLIC PANEL (CH12CT) 3:59 AM CDT HC PTT(APTT) Routine 02/22/2023 3:59 AM CDT HC PT(INR) Routine 02/22/2023 3:59 AM CDT HC CBC W AUTOMATED DIFF Routine 02/22/2023 (HPDCT) 3:59 AM CDT TRANSFUSE RBC'S Routine 02/21/2023 9:14 AM CDT BLOOD BANK SAMPLE HOLD 02/21/2023 5:18 AM CDT HC ABO GROUP Routine 02/21/2023 5:17 AM CDT HC URIC ACID Routine 02/21/2023 3:05 AM CDT HC FIBRINOGEN Routine 02/21/2023 3:05 AM CDT HC PHOSPHOROUS, SERUM Routine 02/21/2023 (PO4CT) 3:05 AM CDT HC MAGNESIUM (MGCT) Routine 02/21/2023 3:05 AM CDT HC COMPREHENSIVE Routine 02/21/2023 METABOLIC PANEL (CH12CT) 3:05 AM CDT HC PTT(APTT) Routine 02/21/2023 3:05 AM CDT HC PT(INR) Routine 02/21/2023 3:05 AM CDT HC CBC W AUTOMATED DIFF Routine 02/21/2023 (HPDCT) 3:05 AM CDT HC PT/INR 1:1 MIX Routine 02/20/2023 3:39 AM CDT HC URIC ACID Routine 02/20/2023 3:39 AM CDT HC FIBRINOGEN Routine 02/20/2023 3:39 AM CDT HC PHOSPHOROUS, SERUM Routine 02/20/2023 (PO4CT) 3:39 AM CDT HC MAGNESIUM (MGCT) Routine 02/20/2023 3:39 AM CDT HC COMPREHENSIVE Routine 02/20/2023 METABOLIC PANEL (CH12CT) 3:39 AM CDT HC PTT(APTT) Routine 02/20/2023 3:39 AM CDT HC PT(INR) Routine 02/20/2023 3:39 AM CDT HC CBC W AUTOMATED DIFF Routine 02/20/2023 (HPDCT) 3:39 AM CDT US DOPPLER VENOUS RIGHT EMMANUEL 02/19/2023 12:01 PM CDT HC UREA NITROGEN-URINE Routine 02/19/2023 11:33 AM CDT HC CREATININE-URINE Routine 02/19/2023 11:33 AM CDT HC SODIUM-URINE Routine 02/19/2023 11:33 AM CDT HC URINALYSIS DIPSTICK Routine 02/19/2023 11:33 AM CDT POC GLUCOSE 02/19/2023 10:03 AM CDT HC URIC ACID Routine 02/19/2023 4:40 AM CDT HC FIBRINOGEN Routine 02/19/2023 4:40 AM CDT HC PHOSPHOROUS, SERUM Routine 02/19/2023 (PO4CT) 4:40 AM CDT HC MAGNESIUM (MGCT) Routine 02/19/2023 4:40 AM CDT HC COMPREHENSIVE Routine 02/19/2023 METABOLIC PANEL (CH12CT) 4:40 AM CDT HC PTT(APTT) Routine 02/19/2023 4:40 AM CDT HC PT(INR) Routine 02/19/2023 4:40 AM CDT HC CBC W AUTOMATED DIFF Routine 02/19/2023 (HPDCT) 4:40 AM CDT POC GLUCOSE 02/18/2023 11:[address] ABD/PELV WO CONTRAST EMMANUEL 02/18/2023 2:09 PM CDT TRANSFUSE RBC'S Routine 02/18/2023 9:01 AM CDT HC BLOOD TYPING, ABO 02/18/2023 CONFIRM 91 5:15 AM CDT HC ABO GROUP Routine 02/18/2023 4:52 AM CDT HC URIC ACID Routine 02/18/2023 3:36 AM CDT HC FIBRINOGEN Routine 02/18/2023 3:36 AM CDT HC PHOSPHOROUS, SERUM Routine 02/18/2023 (PO4CT) 3:36 AM CDT HC MAGNESIUM (MGCT) Routine 02/18/2023 3:36 AM CDT HC COMPREHENSIVE Routine 02/18/2023 METABOLIC PANEL (CH12CT) 3:36 AM CDT HC PTT(APTT) Routine 02/18/2023 3:36 AM CDT HC PT(INR) Routine 02/18/2023 3:36 AM CDT HC CBC W AUTOMATED DIFF Routine 02/18/2023 (HPDCT) 3:36 AM CDT CULTURE-BLOOD Routine 02/17/2023 W/SENSITIVITY 11:21 PM CDT CULTURE-BLOOD Routine 02/17/2023 W/SENSITIVITY 11:21 PM CDT CULTURE-BLOOD Routine 02/17/2023 W/SENSITIVITY 11:21 PM CDT LINE PLCMT 1V CXR STAT 02/17/2023 3:32 PM CDT POC US NO READ Routine 02/17/2023 12:34 PM CDT CONSULT VASCULAR ACCESS Routine 02/17/2023 TEAM 11:47 AM CDT POC GLUCOSE 02/17/2023 10:27 AM CDT POC GLUCOSE 02/17/2023 7:32 AM CDT HC URIC ACID Routine 02/17/2023 4:07 AM CDT HC FIBRINOGEN Routine 02/17/2023 4:07 AM CDT HC PHOSPHOROUS, SERUM Routine 02/17/2023 (PO4CT) 4:07 AM CDT HC MAGNESIUM (MGCT) Routine 02/17/2023 4:07 AM CDT HC COMPREHENSIVE Routine 02/17/2023 METABOLIC PANEL (CH12CT) 4:07 AM CDT HC PTT(APTT) Routine 02/17/2023 4:07 AM CDT HC PT(INR) Routine 02/17/2023 4:07 AM CDT HC CBC W AUTOMATED DIFF Routine 02/17/2023 (HPDCT) 4:07 AM CDT POC GLUCOSE 02/16/2023 4:53 PM CDT MULTI GATED Routine 02/16/2023 1:16 PM CDT POC GLUCOSE 02/16/2023 8:12 AM CDT HC URIC ACID Routine 02/16/2023 4:31 AM CDT HC FIBRINOGEN Routine 02/16/2023 4:31 AM CDT HC PHOSPHOROUS, SERUM Routine 02/16/2023 (PO4CT) 4:31 AM CDT HC MAGNESIUM (MGCT) Routine 02/16/2023 4:31 AM CDT HC COMPREHENSIVE Routine 02/16/2023 METABOLIC PANEL (CH12CT) 4:31 AM CDT HC PTT(APTT) Routine 02/16/2023 4:31 AM CDT HC PT(INR) Routine 02/16/2023 4:31 AM CDT HC CBC W AUTOMATED DIFF Routine 02/16/2023 (HPDCT) 4:31 AM CDT POC GLUCOSE 02/15/2023 9:29 PM CDT POC GLUCOSE 02/15/2023 5:55 PM CDT PV CAROTID ARTERY DUPLEX Routine 02/15/2023 SCAN 3:29 PM CDT POC GLUCOSE 02/15/2023 2:01 PM CDT ECG 12-LEAD Routine 02/15/2023 12:01 PM CDT HC HIGH SENSITIVITY Routine 02/15/2023 TROPONIN I RANDOM 11:52 AM CDT HC NT-PRO-BNP Routine 02/15/2023 11:52 AM CDT 2D + DOPPLER ECHO W/ Routine 02/15/2023 CONTRAST 11:31 AM CDT POC GLUCOSE 02/15/2023 8:20 AM CDT HC URIC ACID Routine 02/15/2023 4:47 AM CDT HC FIBRINOGEN Routine 02/15/2023 4:47 AM CDT HC PHOSPHOROUS, SERUM Routine 02/15/2023 (PO4CT) 4:47 AM CDT HC MAGNESIUM (MGCT) Routine 02/15/2023 4:47 AM CDT HC COMPREHENSIVE Routine 02/15/2023 METABOLIC PANEL (CH12CT) 4:47 AM CDT HC PTT(APTT) Routine 02/15/2023 4:47 AM CDT HC PT(INR) Routine 02/15/2023 4:47 AM CDT HC CBC W AUTOMATED DIFF Routine 02/15/2023 (HPDCT) 4:47 AM CDT POC GLUCOSE 02/14/2023 9:13 PM CDT POC GLUCOSE 02/14/2023 5:37 PM CDT HC SPECIAL STAINS #2 02/14/2023 (PATHOLOGY) 3:46 PM CDT CHROMOSOMES FISH DNA STAT 02/14/2023 PROBE 3:11 PM CDT CHROMOSOMES BONE MARROW Routine 02/14/2023 3:11 PM CDT FE STAIN Routine 02/14/2023 3:11 PM CDT BONE MARROW BIOPSY Routine 02/14/2023 3:11 PM CDT BONE MARROW ASP Routine 02/14/2023 3:11 PM CDT POC GLUCOSE 02/14/2023 11:21 AM CDT POC GLUCOSE 02/14/2023 8:15 AM CDT HC URIC ACID Routine 02/14/2023 4:41 AM CDT HC FIBRINOGEN Routine 02/14/2023 4:41 AM CDT HC PHOSPHOROUS, SERUM Routine 02/14/2023 (PO4CT) 4:41 AM CDT HC MAGNESIUM (MGCT) Routine 02/14/2023 4:41 AM CDT HC COMPREHENSIVE Routine 02/14/2023 METABOLIC PANEL (CH12CT) 4:41 AM CDT HC PTT(APTT) Routine 02/14/2023 4:41 AM CDT HC PT(INR) Routine 02/14/2023 4:41 AM CDT HC CBC W AUTOMATED DIFF Routine 02/14/2023 (HPDCT) 4:41 AM CDT HC MRSA PNEUMONIA SCREEN Routine 02/13/2023 9:29 PM CDT CHEST SINGLE VIEW Routine 02/13/2023 9:08 PM CDT ECG 12-LEAD Routine 02/13/2023 8:57 PM CDT POC GLUCOSE 02/13/2023 8:46 PM CDT KS FLOW CYTOMETRY 02/13/2023 INTERPRETATION 16/> 8:31 PM CDT MARKERS LEUKEMIA-LYMPHOMA PANEL Routine 02/13/2023 BLOOD 8:31 PM CDT HC HEMOGLOBIN A1C Add on 02/13/2023 8:30 PM CDT HC TP53 PCR ARRAY BLOOD Routine 02/13/2023 8:30 PM CDT KS BLOOD SMEAR PERIPHERAL Routine 02/13/2023 INTERP PHYS W/WRIT REPORT 8:30 PM CDT HC LD(LDH;LACTIC Routine 02/13/2023 DEHYDROGENASE) 8:30 PM CDT HC URIC ACID Routine 02/13/2023 8:30 PM CDT HC FIBRINOGEN Routine 02/13/2023 8:30 PM CDT HC PHOSPHOROUS, SERUM Routine 02/13/2023 (PO4CT) 8:30 PM CDT HC MAGNESIUM (MGCT) Routine 02/13/2023 8:30 PM CDT HC COMPREHENSIVE Routine 02/13/2023 METABOLIC PANEL (CH12CT) 8:30 PM CDT HC PTT(APTT) Routine 02/13/2023 8:30 PM CDT HC PT(INR) Routine 02/13/2023 8:30 PM CDT HC CBC W AUTOMATED DIFF Routine 02/13/2023 (HPDCT) 8:30 PM CDT HC RVP PANEL NASAL SINGLE Add on 02/13/2023 RVPN 8:28 PM CDT COVID-19 (SARS-COV-2) PCR Routine 02/13/2023 8:28 PM CDT TELEMETRY STRIPS-SCAN 02/13/2023 12:00 AM CDT TELEMETRY STRIPS-SCAN 02/13/2023 12:00 AM CDT TELEMETRY STRIPS-SCAN 02/13/2023 12:00 AM CDT TELEMETRY STRIPS-SCAN 02/13/2023 12:00 AM CDT TELEMETRY STRIPS-SCAN 02/13/2023 12:00 AM CDT TELEMETRY STRIPS-SCAN 02/13/2023 12:00 AM CDT TELEMETRY STRIPS-SCAN 02/13/2023 12:00 AM CDT TELEMETRY STRIPS-SCAN 02/13/2023 12:00 AM CDT TELEMETRY STRIPS-SCAN 02/13/2023 12:00 AM CDT TELEMETRY STRIPS-SCAN 02/13/2023 12:00 AM CDT TELEMETRY STRIPS-SCAN 02/13/2023 12:00 AM CDT TELEMETRY STRIPS-SCAN 02/13/2023 12:00 AM CDT TELEMETRY STRIPS-SCAN 02/13/2023 12:00 AM CDT TELEMETRY STRIPS-SCAN 02/13/2023 12:00 AM CDT TELEMETRY STRIPS-SCAN 02/13/2023 12:00 AM CDT TELEMETRY STRIPS-SCAN 02/13/2023 12:00 AM CDT TELEMETRY STRIPS-SCAN 02/13/2023 12:00 AM CDT TELEMETRY STRIPS-SCAN 02/13/2023 12:00 AM CDT TELEMETRY STRIPS-SCAN 02/13/2023 12:00 AM CDT TELEMETRY STRIPS-SCAN 02/13/2023 12:00 AM CDT TELEMETRY STRIPS-SCAN 02/13/2023 12:00 AM CDT TELEMETRY STRIPS-SCAN 02/13/2023 12:00 AM CDT TELEMETRY STRIPS-SCAN 02/13/2023 12:00 AM CDT TELEMETRY STRIPS-SCAN 02/13/2023 12:00 AM CDT from Last 3 Months Results * PHOSPHORUS CELLULAR THERAPEUTICS (03/01/2023 4:17 AM CDT) Only the most recent of 17 results within the time period is included. Pathologist Signature Component Value Ref Test Method Analysis Performed A t Range Time Phosphorus 3.5 2.0 - 03/01/2023 [facility] DEPT PAT H AND 4.5 5:18 AM LAB MEDICINE MG/DL CDT Anatomical Location / Laterality Collection Method / Volume Ernestina ection Time Received Time Specimen (Source) BLOOD / Unknown 03/01/2023 4:17 AM CDT 03/01/20 4:41 AM CDT [facility] LABORATORY ORDERABLES [facility]/ZIP Code Phone Number Performing [place] [address], [employer] DEPT PATH AND [address] [facility]. LAB MEDICINE * MAGNESIUM CELLULAR THERAPEUTICS (03/01/2023 4:17 AM CDT) Only the most recent of 17 results within the time period is included. Pathologist Signature Component Value Ref Test Method Analysis Performed A t Range Time Magnesium 2.0 1.6 - 03/01/2023 [facility] DEPT PAT H AND 2.6 5:18 AM LAB MEDICINE mg/dL CDT Anatomical Location / Laterality Collection Method / Volume Ernestina ection Time Received Time Specimen (Source) BLOOD / Unknown 03/01/2023 4:17 AM CDT 03/01/20 4:41 AM CDT [facility] LABORATORY ORDERABLES [facility]/ZIP Code Phone Number Performing Address Organization [address] [employer] PATH AND [address] LAB MEDICINE * (ABNORMAL) COMPREHENSIVE METABOLIC PANEL CELLULAR THERAPEUTICS (03/01/2023 4:17 AM CDT) Only the most recent of 17 results within the time period is included. Pathologist Signature Component Value Ref Test Method Analysis Performed A t Range Time Sodium 140 137 - 03/01/2023 [facility] DEPT PAT H AND 147 5:18 AM LAB MEDICINE MMOL/L CDT Potassium 3.8 3.5 - 03/01/2023 [facility] DEPT PAT H AND 5.1 5:18 AM LAB MEDICINE MMOL/L CDT Chloride 104 98 - 110 03/01/2023 [facility] DEPT PAT H AND MMOL/L 5:18 AM LAB MEDICINE CDT Glucose 117 (H) 70 - 100 03/01/2023 [facility] PAT H AND MG/DL 5:18 AM LAB MEDICINE CDT Blood Urea Nitrogen 20 7 - 25 03/01/2023 [facility] DEPT PATH AND MG/DL 5:18 AM LAB MEDICINE CDT Creatinine 0.93 0.4 - 03/01/2023 [facility] DEPT PAT H AND 1.24 5:18 AM LAB MEDICINE MG/DL CDT Calcium 8.7 8.5 - 03/01/2023 [facility]PT PAT H AND 10.6 5:18 AM LAB MEDICINE MG/DL CDT Total Protein 5.5 (L) 6.0 - 03/01/2023 [facility] DEPT P ATH AND 8.0 G/DL 5:18 AM LAB MEDICINE CDT Total Bilirubin 1.4 (H) 0.3 - 03/01/2023 [facility] DEPT PATH AND 1.2 5:18 AM LAB MEDICINE MG/DL CDT Albumin 2.9 (L) 3.5 - 03/01/2023 [facility] DEPT PAT H AND 5.0 G/DL 5:18 AM LAB MEDICINE CDT Alk Phosphatase 82 25 - 110 03/01/2023 [facility] DEPT PATH AND U/L 5:18 AM LAB MEDICINE CDT AST (SGOT) 34 7 - 40 03/01/2023 [facility] DEPT PAT H AND U/L 5:18 AM LAB MEDICINE CDT CO2 28 21 - 30 03/01/2023 [facility] DEPT PAT H AND MMOL/L 5:18 AM LAB MEDICINE CDT ALT (SGPT) 27 7 - 56 03/01/2023 [facility] DEPT PAT H AND U/L 5:18 AM LAB MEDICINE CDT Anion Gap 8 3 - 12 03/01/2023 [facility] DEPT PAT H AND 5:18 AM LAB MEDICINE CDT eGFR >60 >60 03/01/2023 [facility] DEPT PAT H AND mL/min 5:18 AM LAB MEDICINE CDT Comment: eGFR calculated using the CKD-EPIcr_R equation Anatomical Location / Laterality Collection Method / Volume Ernestina ection Time Received Time Specimen (Source) BLOOD / Unknown 03/01/2023 4:17 AM CDT 03/01/20 23 4:41 AM CDT [place] LABORATORY ORDERABLES FEED [employer]LEVATOR WORK[employer] City/State/ZIP Code Phone Number Performing Address [place] [address], [facility] DEPT PATH AND [address] [facility] LAB MEDICINE * (ABNORMAL) CBC AND DIFF CELLULAR THERAPEUTICS (03/01/2023 4:17 AM CDT) Only the most recent of 17 results within the time period is included. Pathologist Signature Component Value Ref Test Method Analysis Performed A t Range Time White Blood Cells 10.2 4.5 - 03/01/2023 [facility] PT PATH AND 11.0 4:54 AM LAB MEDICINE K/UL CDT RBC 2.58 (L) 4.4 - 03/01/2023 [facility] DEPT PAT H AND 5.5 M/UL 4:54 AM LAB MEDICINE CDT Hemoglobin 8.4 (L) 13.5 - 03/01/2023 [facility] DEPT PAT H AND 16.5 4:54 AM LAB MEDICINE GM/DL CDT Hematocrit 24.8 (L) 40 - 50 03/01/2023 [facility] DEPT PAT H AND % 4:54 AM LAB MEDICINE CDT MCV 96.1 80 - 100 03/01/2023 [facility] DEPT PAT H AND FL 4:54 AM LAB MEDICINE CDT MCH 32.7 26 - 34 03/01/2023 [facility] DEPT PAT H AND PG 4:54 AM LAB MEDICINE CDT MCHC 34.0 32.0 - 03/01/2023 [facility] DEPT PAT H AND 36.0 4:54 AM LAB MEDICINE G/DL CDT RDW 17.4 (H) 11 - 15 03/01/2023 [facility] DEPT PAT H AND % 4:54 AM LAB MEDICINE CDT Platelet Count 21 (LL) 150 - 03/01/2023 [facility] DEPT PATH AND 400 K/UL 4:54 AM LAB MEDICINE CDT Comment: CRITICAL VALUE CALLED TO AND READ BACK BY/TIME/TECH HALEY PURVIS at 03/01/2023 04:54:24 by [id number] MPV 8.3 7 - 11 03/01/2023 [facility] DEPT PAT H AND FL 4:54 AM LAB MEDICINE CDT Segmented 11 (L) 41 - 77 03/01/2023 [facility] DEPT PAT H AND Neutrophils % 6:07 AM LAB MEDICINE CDT Bands 1 0 - 10 % 03/01/2023 [facility] DEPT PAT H AND 6:07 AM LAB MEDICINE CDT Lymphocytes 36 24 - 44 03/01/2023 [facility] DEPT PAT H AND % 6:07 AM LAB MEDICINE CDT Monocytes 31 (H) 4 - 12 % 03/01/2023 [facility] DEPT PAT H AND 6:07 AM LAB MEDICINE CDT Eosinophil 2 0 - 5 % 03/01/2023 [facility] DEPT PAT H AND 6:07 AM LAB MEDICINE CDT Myelocyte 2 % 03/01/2023 [facility] DEPT PAT H AND 6:07 AM LAB MEDICINE CDT Blast 17 % 03/01/2023 [facility] DEPT PAT H AND 6:07 AM LAB MEDICINE CDT ANISO PRESENT 03/01/2023 [facility] DEPT PATH AND 6:07 AM LAB MEDICINE CDT Platelet Estimate MKD DEC 03/01/2023 [facility] P ATH AND 6:07 AM LAB MEDICINE CDT Absolute Neutrophil 1.22 (L) 1.8 - 03/01/2023 [facility] DEPT PATH AND Count Manual 7.0 K/UL 6:07 AM LAB MEDICINE CDT Anatomical Location / Laterality Collection Method / Volume Ernestina ection Time Received Time Specimen (Source) BLOOD / Unknown 03/01/2023 4:17 AM CDT 03/01/20 4:41 AM CDT Virgen Hill LABORATORY ORDERABLES FEED ELEVATOR WORKER-VP [employer] City/State/ZIP Code Phone Number Performing Address [place] [address], [facility] DEPT PATH AND [address] [facility] LAB MEDICINE * TRANSFUSE APHERESIS PLATELETS (02/27/2023 10:37 AM CDT) Angelita Stevens MD BLOOD BANK ORDERABLES City/State/ZIP Code Phone Number Performing Address [place] [address], [facility] DEPT PATH AND [address] [facility] LAB MEDICINE * PREPARE APHERESIS PLATELETS (02/27/2023 4:20 AM CDT) Pathologist Signature Component Value Ref Test Method Analysis Performed A t Range Time Units Ordered 1 02/27/2023 [facility] DE[facility] PATH AND 4:23 AM LAB MEDICINE CDT Unit Number [id number] 02/27/2023 [facility] DEPT PATH AND 4 4:25 AM LAB MEDICINE CDT Blood Component Type APHERESIS 02/27/2023 [facility] DE[facility] T PATH AND PLT,LEUKO 4:25 AM LAB MEDICINE REDUCED, CDT PSORALEN TREATED, 1ST CONT Unit Division 00 02/27/2023 [facility] DEPT PATH AND 4:25 AM LAB MEDICINE CDT Status OF Unit TRANSFUSED 02/28/2023 [facility] DEPT PATH AND 12:48 AM LAB MEDICINE CDT ISSUE DATE TIME [id number] 02/28/2023 [facility] PAT H AND 12:48 AM LAB MEDICINE CDT PRODUCT CODE [id number] 02/28/2023 [facility] DE[facility] PATH AND 12:48 AM LAB MEDICINE CDT BLOOD TYPE O POS 02/28/2023 [facility] DEPT PATH AND 12:48 AM LAB MEDICINE CDT CODING STATUS 5100 02/28/2023 [facility] DEPT PATH AND 12:48 AM LAB MEDICINE CDT BLOOD EXPIRATION [id number] 02/28/2023 [facility] DEPT PA TH AND DATE 12:48 AM LAB MEDICINE CDT Transfusion Status OK TO 02/27/2023 [facility] DE[facility] PATH AND TRANSFUSE 4:25 AM LAB MEDICINE CDT Anatomical Location / Laterality Collection Method / Volume Ernestina ection Time Received Time Specimen (Source) 02/27/2023 4:20 AM CDT 02/28/20 4:22 AM CDT Other (Specify) Angelita Stevens MD BLOOD BANK ORDERABLES City/State/ZIP Code Phone Number Performing Address [place] [address], [facility] DEPT PATH AND [address] [facility] LAB MEDICINE * (ABNORMAL) URIC ACID (02/26/2023 3:32 AM CDT) Only the most recent of 14 results within the time period is included. Pathologist Signature Component Value Ref Test Method Analysis Performed A t Range Time Uric Acid 2.0 (L) 4.0 - 02/26/2023 [facility] DEPT PAT H AND 8.0 4:52 AM LAB MEDICINE MG/DL CDT Anatomical Location / Laterality Collection Method / Volume Ernestina ection Time Received Time Specimen (Source) BLOOD / Unknown 02/26/2023 3:32 AM CDT 09/03/20 23 4:11 AM CDT Virgen Hill LABORATORY ORDERABLES FEED ELEVATOR WORKER-VP [employer] City/State/ZIP Code Phone Number Performing Address [place] [address], [facility] DEPT PATH AND [address] LAB MEDICINE * TRANSFUSE RBC'S (02/25/2023 9:54 AM CDT) Only the most recent of 3 results within the time period is included. Anatomical Location / Laterality Collection Method / Volume Ernestina ection Time Received Time Specimen (Source) BLOOD / Unknown Angelita Stevens MD BLOOD BANK ORDERABLES City/State/ZIP Code Phone Number Performing Address [place] [address], [facility] DEPT PATH AND [address] LAB MEDICINE * TYPE & CROSSMATCH (02/25/2023 3:01 AM CDT) Only the most recent of 3 results within the time period is included. Pathologist Signature Component Value Ref Test Method Analysis Performed A t Range Time Units Ordered 1 02/25/2023 [facility] DEPT PATH AND 4:42 AM LAB MEDICINE CDT Crossmatch Expires 02/28/2023,2 02/25/2023 [facility] DEPT PATH AND 359 5:29 AM LAB MEDICINE CDT Record Check FOUND 02/25/2023 [facility] DEPT PATH AND 4:42 AM LAB MEDICINE CDT ABO/RH(D) A POS 02/25/2023 [facility] DEPT PATH AND 5:29 AM LAB MEDICINE CDT Antibody Screen NEG 02/25/2023 [facility] DEPT PAT H AND 5:29 AM LAB MEDICINE CDT Electronic YES 02/25/2023 [facility] DEPT PATH AND Crossmatch 5:29 AM LAB MEDICINE CDT Unit Number [id number] 02/25/2023 [facility] DEPT PATH AND 3 5:29 AM LAB MEDICINE CDT Blood Component Type RBC,ADSOL,LE 02/25/2023 [facility] DEP T PATH AND [facility] 5:29 AM LAB MEDICINE REDUCED,IRRA CDT DIATED Unit Division 00 02/25/2023 [facility] DEPT PATH AND 5:29 AM LAB MEDICINE CDT Status OF Unit TRANSFUSED 02/26/2023 [facility] DEPT PATH AND 12:23 AM LAB MEDICINE CDT ISSUE DATE TIME [id number] 02/26/2023 [facility] DEPT PAT H AND 12:23 AM LAB MEDICINE CDT PRODUCT CODE [id number] 02/26/2023 [facility] DEPT PATH AND 12:23 AM LAB MEDICINE CDT BLOOD TYPE A POS 02/26/2023 [facility] DEPT PATH AND 12:23 AM LAB MEDICINE CDT CODING STATUS 6200 02/26/2023 [facility] DEPT PATH AND 12:23 AM LAB MEDICINE CDT BLOOD EXPIRATION [id number] 02/26/2023 [facility] DEPT PA TH AND DATE 12:23 AM LAB MEDICINE CDT Transfusion Status OK TO 02/25/2023 [facility] DEPT PATH AND TRANSFUSE 5:29 AM LAB MEDICINE CDT Crossmatch Result COMPATIBLE,E 02/25/2023 [facility] DEPT P ATH AND LECTRONIC 5:29 AM LAB MEDICINE CDT Anatomical Location / Laterality Collection Method / Volume Ernestina ection Time Received Time Specimen (Source) BLOOD / Unknown 02/25/2023 3:01 AM CDT 02/26/20 4:41 AM CDT Angelita Stevens MD BLOOD BANK ORDERABLES City/State/ZIP Code Phone Number Performing Address Organization [address] [facility] DEPT PATH AND [address] LAB MEDICINE * (ABNORMAL) VITAMIN B12 (02/24/2023 3:18 AM CDT) Pathologist Signature Component Value Ref Test Method Analysis Performed A t Range Time Vitamin B12 2,482 (H) 180 - 02/24/2023 [facility] PAT H AND 914 8:54 AM LAB MEDICINE PG/ML CDT Anatomical Location / Laterality Collection Method / Volume Ernestina ection Time Received Time Specimen (Source) 02/24/2023 3:18 AM CDT 02/25/20 3:33 AM CDT Virgen Hill LABORATORY ORDERABLES FEED ELEVATOR WORKER-VP [employer] City/State/ZIP Code Phone Number Performing [place] [address], [facility] DEPT PATH AND [address] LAB MEDICINE * PHOSPHORUS (02/23/2023 5:00 PM CDT) Pathologist Signature Component Value Ref Test Method Analysis Performed A t Range Time Phosphorus 2.3 2.0 - 02/23/2023 [facility] DE[facility] PAT H AND 4.5 5:45 PM LAB MEDICINE MG/DL CDT Anatomical Location / Laterality Collection Method / Volume Ernestina ection Time Received Time Specimen (Source) BLOOD / Unknown 02/23/2023 5:00 PM CDT 02/24/20 5:11 PM CDT Dania Bradshaw LABORATORY ORDERABLES FEED ELEVATOR WORKER-VP [employer] City/State/ZIP Code Phone Number Performing Address [place] [address], [facility] [address] [facility] LAB MEDICINE * CHEST SINGLE VIEW (02/23/2023 1:43 PM CDT) Only the most recent of 2 results within the time period is included. Modality Anatomical Region Laterality Computed Radiography CHEST Anatomical Location / Laterality Collection Method / Volume Ernestina ection Time Received Time Specimen (Source) 02/23/2023 1:46 PM CDT Impressions 02/23/2023 2:03 PM CDT Stable mild cardiomegaly with mild pulmonary edema and bibasilar atelectasis. By my electronic signature, I attest that I have personally reviewed the images for this examination and formulated the interpretations and opinions expressed in this report Finalized by Aiyana Bullock M.D. on 02/23/2023 2:03 PM. Dictated by Suraj Vera MD on 02/23/2023 1:46 PM. Narrative 02/23/2023 2:03 PM CDT CHEST SINGLE VIEW INDICATION: Hypoxia. COMPARISON STUDY: Chest radiograph 02/17/2023. FINDINGS: Support Devices: Dual-chamber pacemaker with leads in stable position right PICC in stable position. Median sternotomy wires and surgical clips over the left mediastinal border. Heart and Mediastinum: Cardiomediastinal silhouette is stable. Lungs and Pleura: Mild bibasilar atelectasis with mild pulmonary edema. No pleural effusion or pneumothorax. Procedure Note Aiyana Bullock MD - 02/23/2023 CHEST SINGLE VIEW INDICATION: Hypoxia. COMPARISON STUDY: Chest radiograph 02/17/2023. FINDINGS: Support Devices: Dual-chamber pacemaker with leads in stable position right PICC in stable position. Median sternotomy wires and surgical clips over the left mediastinal border. Heart and Mediastinum: Cardiomediastinal silhouette is stable. Lungs and Pleura: Mild bibasilar atelectasis with mild pulmonary edema. No pleural effusion or pneumothorax. IMPRESSION Stable mild cardiomegaly with mild pulmonary edema and bibasilar atelectasis. By my electronic signature, I attest that I have personally reviewed the images for this examination and formulated the interpretations and opinions expressed in this report Finalized by Aiyana Bullcok M.D. on 02/23/2023 2:03 PM. Dictated by Suraj Vera MD on 02/23/2023 1:46 PM. Dania Bradshaw DIAGNOSTIC IMAGING ORDERABL ES FEED ELEVATOR WORKER-VP [employer] * (ABNORMAL) 25-OH VITAMIN D (D2 + D3) (02/23/2023 4:08 AM CDT) Pathologist Signature Component Value Ref Test Method Analysis Performed A t Range Time Vitamin 85.9 (H) 30 - 80 02/23/2023 [facility] DEPT PAT H AND D(25-OH)Total NG/ML 9:08 AM LAB MEDICINE CDT Anatomical Location / Laterality Collection Method / Volume Ernestina ection Time Received Time Specimen (Source) BLOOD / Unknown 02/23/2023 4:08 AM CDT 02/24/20 4:38 AM CDT Debi Puentes LABORATORY ORDERABLES FEED ELEVATOR WORKER-VP [employer] City/State/ZIP Code Phone Number Performing [place] [address], [facility] DEPT PATH AND [address] LAB MEDICINE * PTT (APTT) (02/23/2023 4:08 AM CDT) Only the most recent of 11 results within the time period is included. Pathologist Signature Component Value Ref Test Method Analysis Performed A t Range Time APTT 32.8 24.0 - 02/23/2023 [facility] DEPT PAT H AND 36.5 SEC 5:18 AM LAB MEDICINE CDT Anatomical Location / Laterality Collection Method / Volume Ernestina ection Time Received Time Specimen (Source) BLOOD / Unknown 02/23/2023 4:08 AM CDT 02/24/20 4:38 AM CDT Virgen Hill LABORATORY ORDERABLES FEED ELEVATOR WORKER-VP [employer] [facility]/State/ZIP Code Phone Number Performing [place] [address], [facility] DEPT PATH AND [address] LAB MEDICINE * (ABNORMAL) PROTIME INR (PT) (02/23/2023 4:08 AM CDT) Only the most recent of 11 results within the time period is included. Pathologist Signature Component Value Ref Test Method Analysis Performed A t Range Time Protime 18.0 (H) 9.5 - 02/23/2023 [facility] DEPT PAT H AND 14.2 SEC 5:18 AM LAB MEDICINE CDT INR 1.6 (H) 0.8 - 02/23/2023 [facility] DEPT PAT H AND 1.2 5:18 AM LAB MEDICINE CDT Anatomical Location / Laterality Collection Method / Volume Ernestina ection Time Received Time Specimen (Source) BLOOD / Unknown 02/23/2023 4:08 AM CDT 02/24/20 4:38 AM CDT [facility] LABORATORY ORDERABLES [facility] Code Phone Number Performing [place] [address], [facility] PATH AND [address] [facility] LAB MEDICINE * FIBRINOGEN (02/23/2023 4:08 AM CDT) Only the most recent of 11 results within the time period is included. Pathologist Signature Component Value Ref Test Method Analysis Performed A t Range Time Fibrinogen 350 200 - 02/23/2023 [facility] DEPT PAT H AND 400 5:18 AM LAB MEDICINE MG/DL CDT Anatomical Location / Laterality Collection Method / Volume Ernestina ection Time Received Time Specimen (Source) BLOOD / Unknown 02/23/2023 4:08 AM CDT 02/24/20 4:38 AM CDT [facility] LABORATORY ORDERABLES [facility] Code Phone Number Performing Address Organization [address] [facility] PATH AND [email or web address] [facility] LAB MEDICINE * POSACONAZOLE LC-MS/MS (02/22/2023 3:59 AM CDT) Pathologist Signature Component Value Ref Test Method Analysis Performed A t Range Time Posaconazole, Serum 2.0 02/22/2023 [facility] 4:32 PM CDT Comment: Reference range: >0.7 Unit: mcg/mL . The range listed under reference range refers to the target therapeutic range. . *This test was developed and its performance characteristics determined by [employer]. It has not been cleared or approved by the U.S. Food and Drug Administration. Testing Performed At: [facility] [address] [place] [address], [address] [place] [address] Station Cook: Pankaj Melo, PhD BCLD (ABB) CLIA # [id number] FLAG Interpretation: A = Abnormal, H = High, L = Low Anatomical Location / Laterality Collection Method / Volume Ernestina ection Time Received Time Specimen (Source) BLOOD / Unknown 02/22/2023 3:59 AM CDT 02/23/20 5:17 AM CDT Fartun Mackenzie LABORATORY ORDERABLES FEED ELEVATOR WORKER-VP [employer] City/State/ZIP Code Phone Number Performing Address Organization [facility] See results for address. * BLOOD BANK SAMPLE HOLD (02/21/2023 5:18 AM CDT) Pathologist Signature Component Value Ref Test Method Analysis Performed A t Range Time BB Sample hold IN LAB 02/21/2023 [facility] DEPT PATH AND 9:27 AM LAB MEDICINE CDT Anatomical Location / Laterality Collection Method / Volume Ernestina ection Time Received Time Specimen (Source) 02/21/2023 5:18 AM CDT 02/22/20 5:35 AM CDT Yevgeniy Madrid DO BLOOD BANK ORDERABLES City/State/ZIP Code Phone Number Performing Address [place] [address], [facility] DEPT PATH AND [address] LAB MEDICINE * (ABNORMAL) PROTIME INR 1:1 MIX (02/20/2023 3:39 AM CDT) Pathologist Signature Component Value Ref Test Method Analysis Performed A t Range Time PT Pat 0 Min 21.0 (H) 9.5 - 02/20/2023 [facility] DEPT PA TH AND 14.2 s 7:26 AM LAB MEDICINE CDT INR Mix Pat 0 Min 2.0 (H) 0.8 - 02/20/2023 [facility] DE PT PATH AND 1.2 INR 7:26 AM LAB MEDICINE CDT PT Mix 0 Min 14.3 (H) 9.5 - 02/20/2023 [facility] DEPT PA TH AND 14.2 s 7:26 AM LAB MEDICINE CDT INR Mix 0 Min 1.3 (H) 0.8 - 02/20/2023 [facility] DEPT P ATH AND 1.2 INR 7:26 AM LAB MEDICINE CDT PT Mix 60 Min 13.9 9.5 - 02/20/2023 [facility] DEPT P ATH AND 14.2 s 7:26 AM LAB MEDICINE CDT INR Mix 60 Min 1.3 (H) 0.8 - 02/20/2023 [facility] DEPT PATH AND 1.2 INR 7:26 AM LAB MEDICINE CDT Interpretation INR The presence 02/20/2023 [facility] DEPT PATH AND Mix of 7:26 AM LAB MEDICINE anticoagulan CDT t inhibitor drugs such as heparin or direct thrombin inhibitors cannot be excluded. Anatomical Location / Laterality Collection Method / Volume Ernestina ection Time Received Time Specimen (Source) BLOOD / Unknown 02/20/2023 3:39 AM CDT 02/21/20 3:52 AM CDT Fartun Mackenzie LABORATORY ORDERABLES FEED ELEVATOR WORKER-VP [employer] City/State/ZIP Code Phone Number Performing [place] [address], [facility] DEPT PATH AND [address] LAB MEDICINE * US DOPPLER VENOUS RIGHT (02/19/2023 12:01 PM CDT) Modality Anatomical Region Laterality Ultrasound VASCULAR Right Anatomical Location / Laterality Collection Method / Volume Ernestina ection Time Received Time Specimen (Source) 02/19/2023 12:17 PM CDT Right Impressions 02/19/2023 12:59 PM CDT No deep vein thrombus in the right upper extremity. By my electronic signature, I attest that I have personally reviewed the images for this examination and formulated the interpretations and opinions expressed in this report Finalized by Katy Todd M.D. on 02/19/2023 12:59 PM. Dictated by Brice Bolden M.D. on 02/19/2023 12:17 PM. Narrative 02/19/2023 12:59 PM CDT RIGHT UPPER EXTREMITY VENOUS DOPPLER ULTRASOUND CLINICAL INDICATION: Male, 82 years; right upper extremity tenderness. Concern for DVT TECHNIQUE: Multiple grayscale, color Doppler and spectral Doppler ultrasound images were obtained of the right upper extremity for evaluation of peripheral veins. COMPARISON: Correlation is made with chest radiograph February 13 2023. FINDINGS: The right internal jugular vein is patent and fully compressible, with normal transmitted cardiac pulsatility. The innominate and subclavian veins are patent without luminal thrombus. The axillary and brachial veins are patent and fully compressible without filling defect. The right basilic vein is patent and fully compressible. Cephalic vein is patent within the forearm. The right radial and ulnar veins are patent at the wrist. No soft tissue masses or fluid collections are identified in visualized portions of the arm. Procedure Note Katy Todd MD - 02/19/2023 RIGHT UPPER EXTREMITY VENOUS DOPPLER ULTRASOUND CLINICAL INDICATION: Male, 82 years; right upper extremity tenderness. Concern for DVT TECHNIQUE: Multiple grayscale, color Doppler and spectral Doppler ultrasound images were obtained of the right upper extremity for evaluation of peripheral veins. COMPARISON: Correlation is made with chest radiograph February 13 2023. FINDINGS: The right internal jugular vein is patent and fully compressible, with normal transmitted cardiac pulsatility. The innominate and subclavian veins are patent without luminal thrombus. The axillary and brachial veins are patent and fully compressible without filling defect. The right basilic vein is patent and fully compressible. Cephalic vein is patent within the forearm. The right radial and ulnar veins are patent at the wrist. No soft tissue masses or fluid collections are identified in visualized portions of the arm. IMPRESSION No deep vein thrombus in the right upper extremity. By my electronic signature, I attest that I have personally reviewed the images for this examination and formulated the interpretations and opinions expressed in this report Finalized by Katy Todd M.D. on 02/19/2023 12:59 PM. Dictated by Brice Bolden M.D. on 02/19/2023 12:17 PM. Fartun Mackenzie US ORDERABLES FEED ELEVATOR WORKER-VP [employer] * (ABNORMAL) URINALYSIS DIPSTICK (02/19/2023 11:33 AM CDT) Pathologist Signature Component Value Ref Test Method Analysis Performed A t Range Time Color,UA YELLOW 02/19/2023 [facility] DEPT PATH AND 11:52 AM LAB MEDICINE CDT Turbidity,UA CLEAR CLEAR-CL 02/19/2023 [facility] DEPT PA TH AND EAR 11:52 AM LAB MEDICINE CDT Specific 1.018 1.005 - 02/19/2023 [facility] DEPT PAT H AND [place]-Urine 1.030 11:52 AM LAB MEDICINE CDT Comment: NOTE NEW REFERENCE RANGES pH,UA 5.0 5.0 - 02/19/2023 [facility] DEPT PAT H AND 8.0 11:52 AM LAB MEDICINE CDT Protein,UA 1+ (A) NEG-NEG 02/19/2023 [facility] DEPT PAT H AND 11:52 AM LAB MEDICINE CDT Glucose,UA NEG NEG-NEG 02/19/2023 [facility] DEPT PAT H AND 11:52 AM LAB MEDICINE CDT Ketones,UA NEG NEG-NEG 02/19/2023 [facility] DEPT PAT H AND 11:52 AM LAB MEDICINE CDT Bilirubin,UA NEG NEG-NEG 02/19/2023 [facility] DEPT PA TH AND 11:52 AM LAB MEDICINE CDT Blood,UA NEG NEG-NEG 02/19/2023 [facility] DEPT PAT H AND 11:52 AM LAB MEDICINE CDT Urobilinogen,UA NORMAL NORM-NOR 02/19/2023 [facility] DEPT PATH AND MAL 11:52 AM LAB MEDICINE CDT Nitrite,UA NEG NEG-NEG 02/19/2023 [facility] DEPT PAT H AND 11:52 AM LAB MEDICINE CDT Leukocytes,UA NEG NEG-NEG 02/19/2023 [facility] DEPT P ATH AND 11:52 AM LAB MEDICINE CDT Urine Ascorbic Acid, NEG NEG-NEG 02/19/2023 [facility] DEPT PATH AND UA 11:52 AM LAB MEDICINE CDT Anatomical Location / Laterality Collection Method / Volume Ernestina ection Time Received Time Specimen (Source) URINE SPECIMEN / Unknown 02/19/2023 11:33 AM CDT 02/19/2023 11:44 AM CDT Urine Fartun Mackenzie URINE ORDERABLES FEED ELEVATOR WORKER-[employer] City/State/ZIP Code Phone Number Performing Address [place] [address], [facility] DEPT PATH AND [address] [facility] LAB MEDICINE * UREA NITROGEN-URINE RANDOM (02/19/2023 11:33 AM CDT) Pathologist Signature Component Value Ref Test Method Analysis Performed A t Range Time Urea Nitrogen 970 MG/DL 02/19/2023 [facility] DEPT P ATH AND 12:22 PM LAB MEDICINE CDT Anatomical Location / Laterality Collection Method / Volume Ernestina ection Time Received Time Specimen (Source) URINE SPECIMEN / Unknown 02/19/2023 11:33 AM CDT 02/19/2023 11:45 AM CDT Urine Fartun Mackenzie URINE ORDERABLES [facility]/ZIP Code Phone Number Performing [place] [address], [facility] [address] [facility] LAB MEDICINE * SODIUM-URINE RANDOM (02/19/2023 11:33 AM CDT) Pathologist Signature Component Value Ref Test Method Analysis Performed A t Range Time Sodium, Random 16 MMOL/L [facility] 12:22 PM LAB MEDICINE CDT Anatomical Location / Laterality Collection Method / Volume Ernestina ection Time Received Time Specimen (Source) URINE SPECIMEN / Unknown 02/19/2023 11:33 AM CDT 02/19/2023 11:45 AM CDT Urine Fartun Mackenzie URINE ORDERABLES [facility]/ZIP Code Phone Number Performing [place] [address], [facility] AND [address] [facility] LAB MEDICINE * CREATININE-URINE RANDOM (02/19/2023 11:33 AM CDT) Pathologist Signature Component Value Ref Test Method Analysis Performed A t Range Time Creatinine, Random 94 MG/DL [facility] 12:22 PM LAB MEDICINE CDT Anatomical Location / Laterality Collection Method / Volume Ernestina ection Time Received Time Specimen (Source) URINE SPECIMEN / Unknown 02/19/2023 11:33 AM CDT 02/19/2023 11:45 AM CDT Urine Fartun Mackenzie URINE ORDERABLES [facility]/ZIP Code Phone Number Performing [place] [address], [facility] AND [address] [facility] LAB MEDICINE * (ABNORMAL) POC GLUCOSE (02/19/2023 10:03 AM CDT) Only the most recent of 15 results within the time period is included. Pathologist Signature Component Value Ref Test Method Analysis Performed A t Range Time Glucose, POC 163 (H) 70 - 100 [facility] 10:05 AM TOWER A CDT Anatomical Location / Laterality Collection Method / Volume Ernestina ection Time Received Time Specimen (Source) 02/19/2023 10:03 AM CDT 02/20/20 10:05 AM CDT Yevgeniy Madrid DO OTHER LABORATORY City/State/ZIP Code Phone Number Performing Address [place] [address] A * CT ABD/PELV WO CONTRAST (02/18/2023 2:09 PM CDT) Modality Anatomical Region Laterality Computed Tomography CHEST/AB/PEL Anatomical Location / Laterality Collection Method / Volume Ernestina ection Time Received Time Specimen (Source) 02/18/2023 2:26 PM CDT Impressions 02/18/2023 3:58 PM CDT 1. Mild sigmoid colon diverticulosis 2. Nonobstructive right renal calculus . 3. Minimal pleural effusions. Minimal groundglass opacities in the left lung base most likely represents atelectasis. 4. Few tiny lung nodules are most like ly benign. In a low-risk patient no follow-up needed. In a high-risk patient follow-up chest CT at 12 months is suggested. By my electronic signature, I attest that I have personally reviewed the images for this examination and formulated the interpretations and opinions expressed in this report Finalized by Alfa Chen M.D. on 02/18/2023 3:58 PM. Dictated by Home Jerry M.D. on 02/18/2023 2:26 PM. Narrative 02/18/2023 3:[address] ABDOMEN AND PELVIS Clinical Indication: Left lower quadrant abdominal pain. Technique: Multiple contiguous axial CT images were obtained through the abdomen and pelvis without IV contrast. Post processing coronal and sagittal reconstruction images were made from the axial images. IV contrast: None. Bowel contrast: None Comparison: None FINDINGS: Limited evaluation without the use of IV contrast which includes the viscera and vasculature. Lower Thorax: Minimal bilateral pleural effusions. Few tiny nodules in the lung bases, the largest of which is on the right and measures 5 mm (series 2 image 2). Minimal, patchy groundglass type opacities in the left lung base. Dense calcific coronary artery disease. Partial visualization of a cardiac conduction device. Hypodensity of the cardiac blood pool due to anemia. Liver and Biliary system: Liver is normal in size. No obvious focal hepatic lesion is identified. Prior cholecystectomy. Spleen: Unremarkable. Adrenal Glands and Kidneys: Adrenal glands are unremarkable. Mild renal atrophy. No hydronephrosis. Nonobstructing right renal calculus. Pancreas and Retroperitoneum: Severe fatty infiltration of the pancreas. No retroperitoneal lymphadenopathy. Mild diffuse edema in the retroperitoneal space fat. Aorta and Major Vessels: The aorta is normal in caliber with moderate aortoiliac atherosclerotic plaque. 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 Bowel, Mesentery and Peritoneal space: The large and small bowel is normal in caliber. Appendix is normal. No mesenteric adenopathy. A few calcifications in the root of the mesentery most likely represent calcified lymph node granulomas. No ascites. No free air. Mild sigmoid colon diverticulosis. Pelvis: Mildly distended urinary bladder is unremarkable. Brachytherapy probes within the prostate. No pelvic lymphadenopathy. Abdominal wall and Osseous Structures: Mild body wall edema. Injection sites within the anterior wall. No aggressive osseous lesion. Mild thoracolumbar spondylosis. Partial visualization of a sternotomy. Prior laminectomies at L3 and L5. Procedure Note Alfa Chen MD - 02/18/2023 CT ABDOMEN AND PELVIS Clinical Indication: Left lower quadrant abdominal pain. Technique: Multiple contiguous axial CT images were obtained through the abdomen and pelvis without IV contrast. Post processing coronal and sagittal reconstruction images were made from the axial images. IV contrast: None. Bowel contrast: None Comparison: None FINDINGS: Limited evaluation without the use of IV contrast which includes the viscera and vasculature. Lower Thorax: Minimal bilateral pleural effusions. Few tiny nodules in the lung bases, the largest of which is on the right and measures 5 mm (series 2 image 2). Minimal, patchy groundglass type opacities in the left lung base. Dense calcific coronary artery disease. Partial visualization of a cardiac conduction device. Hypodensity of the cardiac blood pool due to anemia. Liver and Biliary system: Liver is normal in size. No obvious focal hepatic lesion is identified. Prior cholecystectomy. Spleen: Unremarkable. Adrenal Glands and Kidneys: Adrenal glands are unremarkable. Mild renal atrophy. No hydronephrosis. Nonobstructing right renal calculus. Pancreas and Retroperitoneum: Severe fatty infiltration of the pancreas. No retroperitoneal lymphadenopathy. Mild diffuse edema in the retroperitoneal space fat. Aorta and Major Vessels: The aorta is normal in caliber with moderate aortoiliac atherosclerotic plaque. 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 Bowel, Mesentery and Peritoneal space: The large and small bowel is normal in caliber. Appendix is normal. No mesenteric adenopathy. A few calcifications in the root of the mesentery most likely represent calcified lymph node granulomas. No ascites. No free air. Mild sigmoid colon diverticulosis. Pelvis: Mildly distended urinary bladder is unremarkable. Brachytherapy probes within the prostate. No pelvic lymphadenopathy. Abdominal wall and Osseous Structures: Mild body wall edema. Injection sites within the anterior wall. No aggressive osseous lesion. Mild thoracolumbar spondylosis. Partial visualization of a sternotomy. Prior laminectomies at L3 and L5. IMPRESSION 1. Mild sigmoid colon diverticulosis 2. Nonobstructive right renal calculus. 3. Minimal pleural effusions. Minimal g roundglass opacities in the left lung base most likely represents atelectasis. 4. Few tiny lung nodules are most likel y benign. In a low-risk patient no follow-up needed. In a high-risk patient follow-up chest CT at 12 months is suggested. By my electronic signature, I attest that I have personally reviewed the images for this examination and formulated the interpretations and opinions expressed in this report Finalized by Alfa Chen M.D. on 02/18/2023 3:58 PM. Dictated by Home Jerry M.D. on 02/18/2023 2:[address] ORDERABLES FEED ELEVATOR WORKER-VP [employer]TEGRITY * BLOOD TYPE CONFIRMATION - ORDER ONLY IF REQUESTED BY LAB (02/18/2023 5:15 AM CDT) Pathologist Signature Component Value Ref Test Method Analysis Performed A t Range Time ABO/RH(D) A POS 02/18/2023 [facility] DEPT PATH AND 6:44 AM LAB MEDICINE CDT Anatomical Location / Laterality Collection Method / Volume Ernestina ection Time Received Time Specimen (Source) 02/18/2023 5:15 AM CDT 02/19/20 5:28 AM CDT Unknown Unknown BLOOD BANK ORDERABLES City/State/ZIP Code Phone Number Performing Address [place] [address], [facility] DEPT PATH AND [address] [facility] LAB MEDICINE * CULTURE-BLOOD W/SENSITIVITY (02/17/2023 11:21 PM CDT) Only the most recent of 3 results within the time period is included. Pathologist Signature Component Value Ref Test Method Analysis Performed A t Range Time Battery Name BLOOD [facility] DEPT PATH AND CULTURE LAB MEDICINE Report Status FINAL [facility] DEPT PATH AND 02/24/2023 LAB MEDICINE Specimen Description BLOOD BLOOD [facility] DEPT PATH A ND LINE DRAW LAB MEDICINE PICC LINE purple lumen Special Requests aerobic 02/18/2023 [facility] DEPT PA TH AND bottle only 1:35 AM LAB MEDICINE CDT Culture NO GROWTH 5 02/24/2023 [facility] DEPT PATH AND DAYS 5:29 AM LAB MEDICINE CDT Anatomical Location / Laterality Collection Method / Volume Ernestina ection Time Received Time Specimen (Source) BLOOD SAMPLE TAKEN FROM CENTRAL LINE / Unknown 0 02/17/2023 11:21 PM CDT 02/18/2023 1:35 AM CDT Blood Comment: PICC LINE~purple lumen [place] MICROBIOLOGY ORDERABLES FEED ELEVATOR WORKER-VP [employer]TEGRITY City/State/ZIP Code Phone Number Performing Address [place] [address], [facility] DEPT PATH AND [address] [facility] LAB MEDICINE * LINE PLCMT 1V CXR (02/17/2023 3:32 PM CDT) Modality Anatomical Region Laterality Computed Radiography CHEST Anatomical Location / Laterality Collection Method / Volume Ernestina ection Time Received Time Specimen (Source) 02/17/2023 3:37 PM CDT Impressions 02/17/2023 4:08 PM CDT New right PICC with tip difficult to visualize though likely to the level of the superior cavoatrial junction. By my electronic signature, I attest that I have personally reviewed the images for this examination and formulated the interpretations and opinions expressed in this report Finalized by Xochitl Rodriguez M.D. on 02/17/2023 4:08 PM. Dictated by Horace Arriaga MD on 02/17/2023 3:37 PM. Narrative 02/17/2023 4:08 PM CDT LINE PLCMT 1V CXR INDICATION: PICC line placement. COMPARISON STUDY: Chest radiograph 02/13/2023 FINDINGS: Support Devices: Left subclavian dual-chamber pacer device with leads in stable position. New right PICC with tip difficult to visualize though likely to the level of the superior cavoatrial junction. Surgical clips overlying the left mediastinal border. Lungs/Pleura: Mild bibasilar atelectasis. No pleural effusion or pneumothorax. Heart and Mediastinum: Stable enlarged cardiac silhouette. CABG and median sternotomy. Unchanged fracture of an inferior sternal wire. Procedure Note Xochitl Rodriguez MD - 02/17/2023 LINE PLCMT 1V CXR INDICATION: PICC line placement. COMPARISON STUDY: Chest radiograph 02/13/2023 FINDINGS: Support Devices: Left subclavian dual-chamber pacer device with leads in stable position. New right PICC with tip difficult to visualize though likely to the level of the superior cavoatrial junction. Surgical clips overlying the left mediastinal border. Lungs/Pleura: Mild bibasilar atelectasis. No pleural effusion or pneumothorax. Heart and Mediastinum: Stable enlarged cardiac silhouette. CABG and median sternotomy. Unchanged fracture of an inferior sternal wire. IMPRESSION New right PICC with tip difficult to visualize though likely to the level of the superior cavoatrial junction. By my electronic signature, I attest that I have personally reviewed the images for this examination and formulated the interpretations and opinions expressed in this report Finalized by Xochitl Rodriguez M.D. on 02/17/2023 4:08 PM. Dictated by Horace Arriaga MD on 02/17/2023 3:37 PM. Angelita Stevens MD DIAGNOSTIC IMAGING ORDERABL ES * POC US NO READ (02/17/2023 12:34 PM CDT) Anatomical Location / Laterality Collection Method / Volume Ernestina ection Time Received Time Specimen (Source) Narrative [facility] - 02/17/2023 12:34 PM CDT This order has been auto finalized and does not contain a result. Angelita Stevens MD US ORDERABLES City/State/ZIP Code Phone Number Performing Address Organization [facility] * MULTI GATED (02/16/2023 1:16 PM CDT) Pathologist Signature Component Value Ref Test Method Analysis Performed A t Range Time Baseline HR 45 BPM GE MUSE Baseline BP - Sys 135 mmHg GE MUSE Baseline BP - Jefferson 60 mmHg GE MUSE Estimated workload 1 GE MUSE Peak HR 69 BPM GE MUSE Peak BP - Sys 152 mmHg GE MUSE Peak BP - Jefferson 43 mmHg GE MUSE Percent of predicted 100 % GE MUSE max HR Peak Double Product 8,349 GE MUSE Exercise duration 4 GE MUSE (min) Exercise duration 0 GE MUSE (sec) Study Number [id number] GE MUSE Stress Dose 6.60 mCi GE MUSE CV NUCLEAR BMI 28.48 kg/m2 GE MUSE Rest Dose 19.80 mCi GE MUSE PUL TO LORENZO COUNT 0.38 GE MUSE RATIO TID Ratio 0.93 GE MUSE MPI EF 80 % GE MUSE Summed Stress Score 5 GE MUSE Summed Rest Score 1 GE MUSE LV volume 81.00 mL GE MUSE Nuclear Cardiology In aggregate GE MUSE Mortality Risk the current study is low risk in regards to predicted annual cardiovascul ar mortality rate. Modality Anatomical Region Laterality Ultrasound Anatomical Location / Laterality Collection Method / Volume Ernestina ection Time Received Time Specimen (Source) 02/16/2023 12:41 PM CDT 02/17/20 12:41 PM CDT Narrative 02/16/2023 4:20 PM CDT Nuclear Report Cardiology: [facility] Division of Nuclear Cardiac Imaging Consultation Report EXAMINATION: D-SPECT Gated Technetium-99m Myoview Same-Day Stress/Rest myocardial perfusion single-photon emission computed tomography resting regional wall function, resting ejection fraction, and perfusion imaging utilizing Regadenoson pharmacological stress. Date of Study: 02/16/23 Camera Location and Number: [id number] KU KU Billing ID: [id number] Referring Physician: Requested by: Julia Ballard APRN-NP BMI: 28.48 kg/m2 INDICATIONS FOR STUDY (HISTORY): This is a 82 year old male with a history of Hypertension, Diabetes, former smoker Coronary artery disease status post three-vessel CABG in 2007, permanent atrial fibrillation, tachycardia/bradycardia syndrome status post PPM, ODETTE, acute myeloid leukemia.. The patient has recently been experiencing chest pain. PROCEDURAL DETAILS: This Gated Same-Day Stress/Rest perfusion study was performed using Technetium-99m Myoview as the perfusion agent. Initially, the patient received 5 ml intravenous infusion of Regadenoson at 0.08 mg/ml over 10 to 15 seconds. Approximately 20 seconds later 6.60 mCi of Technetium-99m Myoview was injected intravenously. Continuous electrocardiographic monitoring and serial electrocardiograms were obtained, as well as intermittent blood pressure recordings. Gated upright D-SPECT tomographic images were acquired 45 to 60 minutes after discontinuation of the Regadenoson infusion. When indicated supine D-SPECT images were also obtained. The patient returned in approximately 4 hours and received an additional 19.80 mCi of Technetium-99m Myoview intravenously. Rest images were acquired and compared to post stress images. FINDINGS: Pharmacological Stress Electrocardiogram: The patient's resting heart rate was 45 bpm and the resting blood pressure was 135/60. The patient s peak stress heart rate was 69 bpm and the peak stress blood pressure was 152/43. The patient experienced shortn ess of air, dizziness/lightheadedness, stomach cramping that resolved spontaneously. He did not have any chest pain or chest heaviness. The resting ECG shows Atrial fibrillation with right bundle branch block and left anterior fascicular block. Following Regadenoson infusion there are no new diagnostic ECG changes. Conclusion: Pharmacologic stress ECG is negative for ischemia. Ompdkvvlx-xp-Ekjanqkahj Count Ratio: 0.38 (normal = or < 0.52). Scintigraphic Findings: Raw images reveal the left ventricular cavity is small in size. There is normal pulmonary tracer uptake. There is a mild degree of diaphragmatic attenuation present. No transient ischemic dilation is present. Tomographic images were reconstructed in three orthogonal views. There is a small, partially fixed defect noted apically of mildly reduced intensity that corrected on the supine stress study Polar coordinate map identifies no perfusion abnormalities, utilizing PRONE +. TID Ratio: 0.93 (normal <1.36). Summed Stress Score: 5 , Summed Rest Score: 1 Regional Wall Thickening and Motion Post Stress: Abnormal septal motion. Dynamic ventricle. Left Ventricular Ejection Fraction = 80 %. Left Ventricular End Diastolic Volume: 81.00 mL SUMMARY/OPINION: This study is low risk for significant inducible myocardial ischemia. 1. There is a small, partially fixed def ect noted apically of mildly reduced intensity that corrected on the supine stress study is most suggestive of soft tissue attenuation (normal polar maps when utilized the prone plus technique). Small prior injury/minimal apical ischemia cannot be totally excluded, but less likely given normal motion. 2. Abnormal septal motion postoperative status. Left ventricular systolic function is normal, > 70% The ejection fraction possibly overestimated in the setting of small left ventricle. There are no high risk prognostic indicators present. 3. The pharmacologic ECG portion of the study is negative for ischemia. There are no prior studies available for comparison. [facility] NUCLEAR CARDIOLOGY ORDERABL ES FEED ELEVATOR WORKER-VP INTEGRITY * PV CAROTID ARTERY DUPLEX SCAN (02/15/2023 3:29 PM CDT) Pathologist Signature Component Value Ref Test Method Analysis Performed A t Range Time LEFT CCA DIST SYS 1.18 m/s OTHER OUTSID E LAB LEFT CCA DIST JEFFERSON 0.22 m/s OTHER OUTSI DE LAB LEFT CCA PROX SYS 1.36 m/s OTHER OUTSID E LAB LEFT CCA PROX JEFFERSON 0.27 m/s OTHER OUTSI DE LAB LEFT ICA DIST SYS 1.00 m/s OTHER OUTSID E LAB LEFT ICA DIST JEFFERSON 0.31 m/s OTHER OUTSI DE LAB LEFT ICA MID SYS 1.26 m/s OTHER OUTSIDE LAB LEFT ICA MID JEFFERSON 0.28 m/s OTHER OUTSID E LAB LEFT ICA PROX SYS 1.28 m/s OTHER OUTSID E LAB LEFT ICA PROX JEFFERSON 0.32 m/s OTHER OUTSI DE LAB LEFT ECA SYS 1.40 m/s OTHER OUTSIDE L AB LEFT SUBCLAVIAN SYS 1.93 m/s OTHER OUTS LINA LAB LEFT VERTEBRAL SYS 0.71 m/s OTHER OUTSI DE LAB RIGHT CCA DIST SYS 0.93 m/s OTHER OUTSI DE LAB RIGHT CCA DIST JEFFERSON 0.17 m/s OTHER OUTS LINA LAB RIGHT CCA PROX SYS 1.00 m/s OTHER OUTSI DE LAB RIGHT CCA PROX JEFFERSON 0.17 m/s OTHER OUTS LINA LAB RIGHT ICA DIST SYS 0.79 m/s OTHER OUTSI DE LAB RIGHT ICA DIST JEFFERSON 0.21 m/s OTHER OUTS LINA LAB RIGHT ICA MID SYS 0.89 m/s OTHER OUTSID E LAB RIGHT ICA MID JEFFERSON 0.29 m/s OTHER OUTSI DE LAB RIGHT ICA PROX SYS 0.94 m/s OTHER OUTSI DE LAB RIGHT ICA PROX JEFFERSON 0.30 m/s OTHER OUTS LINA LAB RIGHT ECA SYS 1.46 m/s OTHER OUTSIDE L AB RIGHT SUBCLAVIAN SYS 1.72 m/s OTHER OUT SIDE LAB RIGHT VERTEBRAL SYS 0.48 m/s OTHER OUTS LINA LAB Cardiology Chiquita Epiq OTHER OUTSIDE LAB Ultrasound Machine RIGHT ICA/CCA SYS 1.01 m/s OTHER OUTSID E LAB LEFT ICA/CCA SYS 1.08 m/s OTHER OUTSIDE LAB Modality Anatomical Region Laterality Ultrasound Anatomical Location / Laterality Collection Method / Volume Ernestina ection Time Received Time Specimen (Source) Narrative 02/15/2023 4:00 PM CDT There is mild atheromatous plaque visualized in bilateral common and internal carotid arteries No hemodynamically significant (>50%) stenosis measured in the bilateral common and right internal carotid arteries There are elevated velocities in the proximal to mid left internal carotid artery however ratio does not meet criteria for hemodynamically significant stenosis There is normal antegrade flow in bilateral vertebral arteries No evidence of proximal subclavian stenosis bilaterally Irregular cardiac rhythm No prior study available for comparison. Julia Daja Balalrd PERIPHERAL VASCULAR ORDERAB LES FEED ELEVATOR WORKER-VP [employer]TEGRITY * ECG 12-LEAD (02/15/2023 12:01 PM CDT) Pathologist Signature Component Value Ref Test Method Analysis Performed A t Range Time VENTRICULAR RATE 70 BPM GE MUSE P-R INTERVAL ms GE MUSE QRS DURATION 162 ms GE MUSE Q-T INTERVAL 428 ms GE MUSE QTC CALCULATION 462 ms GE MUSE (BAZETT) P AXIS degrees GE MUSE R AXIS -59 degrees GE MUSE T AXIS 11 degrees GE MUSE Anatomical Location / Laterality Collection Method / Volume Ernestina ection Time Received Time Specimen (Source) 02/15/2023 12:01 PM CDT 02/16/20 8:35 PM CDT Impressions GE MUSE - 02/15/2023 8:35 PM CDT Atrial fibrillation with occasional ventricular-paced complexes Right bundle branch block Left anterior fascicular block Bifascicular block Abnormal ECG Confirmed by Ana Kathleen ([id number]) on 02/15/2023 8:35:51 PM Narrative Procedure Note Ana Kathleen MD - 02/15/2023 IMPRESSION Atrial fibrillation with occasional ventricular-paced complexes Right bundle branch block Left anterior fascicular block Bifascicular block Abnormal ECG Confirmed by Ana Kathleen ([id number]) on 02/15/2023 8:35:51 PM Fartun Mackenzie ECG ORDERABLES FEED ELEVATOR WORKER-VP [employer]TEGRITY City/State/ZIP Code Phone Number Performing Address Organization GE MUSE * (ABNORMAL) NT-PRO-BNP (02/15/2023 11:52 AM CDT) Pathologist Signature Component Value Ref Test Method Analysis Performed A t Range Time NT-Pro-BNP 1,459.0 (H) <450 02/15/2023 [facility] DEPT PAT H AND pg/mL 1:31 PM LAB MEDICINE CDT Comment: NOTE: Normal reference ranges for NT-proBNP vary by age: <125 pg/mL for individuals < 75 years old <450 pg/mL for individuals =/> 75 years old Anatomical Location / Laterality Collection Method / Volume Ernestina ection Time Received Time Specimen (Source) BLOOD / Unknown 02/15/2023 11:52 AM CDT 02/16/20 12:28 PM CDT Fartun Mackenzie LABORATORY ORDERABLES FEED ELEVATOR WORKER-VP INTEGRITY City/State/ZIP Code Phone Number Performing [place] [address], [facility] [address] [facility] LAB MEDICINE * HIGH SENSITIVITY TROPONIN I, RANDOM (02/15/2023 11:52 AM CDT) Pathologist Signature Component Value Ref Test Method Analysis Performed A t Range Time hs Troponin I, 7 <20 ng/L 02/15/2023 [facility] DEPT PATH AND Random 1:29 PM LAB MEDICINE CDT Anatomical Location / Laterality Collection Method / Volume Ernestina ection Time Received Time Specimen (Source) BLOOD / Unknown 02/15/2023 11:52 AM CDT 02/16/20 12:28 PM CDT Fartun Mackenzie LABORATORY ORDERABLES FEED ELEVATOR WORKER-[facility]/State/ZIP Code Phone Number Performing [place] [address], [facility] [address] [facility] LAB MEDICINE * 2D + DOPPLER ECHO W/ CONTRAST (02/15/2023 11:31 AM CDT) Pathologist Signature Component Value Ref Test Method Analysis Performed A t Range Time Left Ventricle 137.00 62 - 150 OTHER OUTSIDE L AB Diastolic Volume mL Left Ventricle 52.00 21 - 61 OTHER OUTSIDE L AB Systolic Volume mL IVS 1.20 0.6 - OTHER OUTSIDE L AB 1.0 cm LVIDD 4.50 4.2 - OTHER OUTSIDE L AB 5.8 cm LVIDS 2.60 2.5 - OTHER OUTSIDE L AB 4.0 cm LVOT diameter 2.10 cm OTHER OUTSIDE L AB LVOT peak VTI 20.00 cm OTHER OUTSIDE L AB PW 1.20 0.6 - OTHER OUTSIDE L AB 1.0 cm TDI lateral e' 0.12 m/s OTHER OUTSIDE L AB TDI Medial e' 0.08 m/s OTHER OUTSIDE L AB LA volume 68.40 18 - 58 OTHER OUTSIDE L AB mL LA size 4.90 3.0 - OTHER OUTSIDE L AB 4.0 cm AV peak velocity 1.30 m/s OTHER OUTSIDE LAB Sinus 3.60 2.8 - OTHER OUTSIDE L AB 4.0 cm MV stenosis pressure 77.00 ms OTHER OUT SIDE LAB 1/2 time MV Peak E Joshua PW 1.51 m/s OTHER OUTSIDE LAB MV mean gradient 2.00 mmHg OTHER OUTSIDE LAB MV VTI 38.10 cm OTHER OUTSIDE L AB Right Heart Systolic 1.50 >1.7 cm OTHER OUT SIDE LAB Mmode TAPSE Right Ventricular 3.50 1.9 - OTHER OUTSID E LAB Mid Diameter 3.5 cm Right Ventricular 4.60 2.5 - OTHER OUTSID E LAB Basal Diameter 4.1 cm Right Heart Systolic 0.07 m/s OTHER OUT SIDE LAB TDI S' BSA 2.2 m2 OTHER OUTSIDE L AB FS 42.22 28 - 44 OTHER OUTSIDE L AB % Teichholtz 71.78 % OTHER OUTSIDE L AB Left Ventricle 24 11 - 31 OTHER OUTSIDE L AB Systolic Volume mL/m2 Index Left Ventricle 62 34 - 74 OTHER OUTSIDE L AB Diastolic Volume mL/m2 Index Left Atrium Index 31.09 16 - 34 OTHER OUTSID E LAB mL/m2 LV mass 198 88 - 224 OTHER OUTSIDE L AB g Left Ventricle Mass 90 49 - 115 OTHER OUTS LINA LAB Index g/m2 RWT 0.53 <=0.42 OTHER OUTSIDE L AB LVOT area 3.46 cm2 OTHER OUTSIDE L AB LVOT stroke volume 69.27 cm3 OTHER OUTSI DE LAB MV valve area P1/2 2.86 cm2 OTHER OUTSI DE LAB MV valve area by 1.82 cm2 OTHER OUTSIDE LAB continuity eq Medial E/E' ratio 18.88 OTHER OUTSIDE LAB Lateral E/E' ratio 12.58 OTHER OUTSIDE LAB Cardiology Chiquita Epiq OTHER OUTSIDE LAB Ultrasound Machine Ascending aorta 3.1 cm OTHER OUTSIDE LAB TR PEAK VELOCITY 2.9 m/s OTHER OUTSIDE LAB RV SYSTOLIC PRESSURE 34 OTHER OUTSIDE LAB RA PRESSURE 15 OTHER OUTSIDE LAB TV rest pulmonary 49 mmHg OTHER OUTSID E LAB artery pressure MOLINA'S BIPLANE EF 62 % OTHER OUT SIDE LAB Modality Anatomical Region Laterality Ultrasound Anatomical Location / Laterality Collection Method / Volume Ernestina ection Time Received Time Specimen (Source) Narrative 02/15/2023 2:27 PM CDT The left ventricular size is normal with concentric remodeling. The left ventricular systolic function is normal. The ejection fraction by Molina's biplane method is 62%. The right ventricle is mildly dilated. The right ventricular systolic function is probably normal (TAPSE of 1.5 but visual RV contractility appears normal). Tricuspid Valve: There is moderate to severe tricuspid regurgitation due to a dilated annulus. The estimated peak systolic PA pressure is 49 mmHg. Markedly elevated central venous pressure (10-20 mm Hg). No prior studies for comparison. Left Ventricle The left ventricular size is normal. Wall thickness is increased. Concentric remodeling. The left ventricular systolic function is normal. The ejection fraction by Molina's biplane method is 62%. There are no segmental wall motion abnormalities. Abnormal septal motion - due to underlying bundle branch block or RV pressure overload. Unable to assess left ventricular diastolic function. Unable to assess left atrial pressure. Right Ventricle The right ventricle is mildly dilated. The right ventricular systolic function is probably normal. TAPSE of 1.5 but visual RV contractility appears normal. Left Atrium Normal size. Right Atrium Not well seen. IVC/SVC Markedly elevated central venous pressure (10-20 mm Hg). Mitral Valve Normal valve structure. No stenosis. Mild regurgitation. There is mild mitral annular calcification without stenosis. Tricuspid Valve Valve has a dilated annulus. No stenosis. Moderate to severe regurgitation. Aortic Valve The valve is sclerotic. No stenosis. No regurgitation. Pericardium No pericardial effusion. Pulmonary The pulmonic valve was not seen well but no Doppler evidence of stenosis. Mild regurgitation. Aorta The aortic root and ascending aorta are normal in size. Wall Scoring Resting Score Index: 1.00 The left ventricular wall motion is normal. Morena Wilkerson ECHO ORDERABLES FEED ELEVATOR WORKER-VP INTEGRITY * BONE MARROW (02/14/2023 3:46 PM [facility]) Pathologist Signature Component Value Ref Test Method Analysis Performed A t Range Time PATHOLOGY REPORT THE [facility] 12:00 AM LAB MEDICINE [facility] [email or web address] Department of Pathology and Laboratory Medicine [address] [place] [id number] Surgical Pathology Office: Fax: SURGICAL PATHOLOGY REPORT NAME: CORY DON SURG PATH #: [id number] MR #: [id number] ALT ID #: LOCATION: [id number] DATE OF PROCEDURE: 02/14/2023 AGE: 82 SEX: M DATE RECEIVED: 02/14/2023 : 1940 TIME RECEIVED: 15:46 PHYSICIAN: KINGA SRIVASTAVA DATE OF REPORT: 02/17/2023 COPY TO: DATE OF PRINTIN02/20/2023 ############ ############ ############ ############ ############ ############ Final Diagnosis: Bone marrow, left iliac crest, aspirate, biopsy, clot, and touch prep: Acute myeloid leukemia (56% blasts) involving a hypercellula r bone marrow (80-90%) with decreased trilineage hematopoiesi s. Flow cytometry on the blood sample detects a population of neoplastic myeloid blasts, which supports the above diagnosis. Please correlate with concurrent cytogenetics /FISH and molecular studies for further classificati on. Peripheral blood smear: Acute Myeloid Leukemia (55% circulating blasts). Macrocytic hyperchromic anemia and thrombocytop enia. Attestation: By this signature, I attest that I have personally formulated the final interpretati on expressed in this report and that the above diagnosis is based upon my examination of the slides and/or other material indicated in this report. Masoud torres Signed Out By PETE RAPHAEL MD on 02/17/2023 ROLANDO WHITAKER kssom/ 3 Procedures/A ddenda Addendum Date Ordered: 02/20/2023 Status: Signed Out Date Complete: 02/20/2023 By: PETE RAPHAEL MD Date Reported: 02/20/2023 Addendum Diagnosis Iron stain (on aspirate) shows absent iron storage (0/6) with no ring sideroblasts noted. The rendered diagnosis remains unchanged. Addendum Comment This addendum is issued to report the iron stain result. PETE RAPHAEL MD Material Received: A: left bone marrow clot B: left bone marrow biopsy History: Recently diagnosed AML. Gross Description: A. Received in formalin labeled "left bone marrow clot" is a 4.3 x 0.7 x 0.6 cm aggregate of friable red-brown clotted blood elements. The specimen is serially sectioned and entirely submitted in A1-A3. The specimen is placed in formalin at 15:24 on 02/14/2023 and not removed from formalin until 23:40 on 02/14/2023. (ravinder) B. Received in formalin labeled "left bone marrow biopsy" is a 1.8 cm in length and 0.2 cm in diameter intact cylindrical, yellow-mcmahan firm piece of tissue. The specimen is submitted in B1 after immuno-decal cification. The specimen is placed in formalin at 15:11 on 02/14/2023 and not removed from formalin until 23:40 on 02/14/2023. (ravinder) ravinder/02/14/2023 Microscopic Description: CBC Data: HGB 8.6 (g/dL); RBC 2.50 (m/uL); MCV 104.0 ([place]); RDW 17.8 (%); WBC 17.1 (k/uL); PLT 44 (k/uL). Blood Smear Diff (%): Segmented neutrophils 6; lymphocytes 23; monocytes 16; blasts 55. Blood Smear Morphology: RBC: Macrocytic hyperchromic anemia with anisopoikilo cytosis WBC: Leukocytosis with increased melanocytes Platelets: Marked thrombocytop enia with unremarkable morphology Others: Frequent circulating blasts aren't noted (55%). Bone Marrow Aspirate/Sanjay ch Prep Morphology: Aspirate Adequacy: Adequate Touch Prep Adequacy: Adequate Cellularity: Increased Megakaryocyt es: Markedly decreased with a subset showing hyper lobation and nuclear lobe separation (too few to evaluate percentage). Blasts: Markedly increased Erythroid: Markedly decreased with a minute subset showing dysplastic changes (less than 10%). Granulocytes : Decreased Lymphocytes: Unremarkable Plasma Cells: Unremarkable Bone Marrow Differential Cell Count (%): Blasts: 56 Promyelocyte s: 2 Myelocytes: 3 Metamyelocyt es: 2 Segs/Bands: 11 Eosinophils: 8 Erythroid: 12 Monocytes: 0 Lymphocytes: 5 Plasma cells: 1 M:E ratio: N/A Bone Marrow Core Biopsy: Adequacy: Adequate Length: 1.5 cm Cellularity: 80% Megakaryocyt es: Decreased with a subset showing hyper lobation and nuclear lobe separation Hematopoiesi s: Resembles aspirate smear / touch prep Bone Marrow Cell Clot: Adequacy: Adequate Cellularity: 80-90% Pertinent Findings: Resembles core biopsy Additional Stains: Iron Stain: the iron stain is pending and the result will be added as an addendum. Immunohistoc hemistry: Not performed Chromogenic In Situ Hybridizatio n: Not performed Other Special Stains: Not performed Ancillary Studies: Flow Cytometry: flow cytometry is performed on peripheral blood sample and detects a population of neoplastic myeloid blasts (56%), consistent with acute myeloid leukemia. Cytogenetics : Performed, see separate report Fluorescence In Situ Hybridizatio n: Performed, see separate report Molecular Genetics: Performed, see separate report Preliminary Diagnosis: Not performed If immunohistoc hemical stains and/or in situ hybridizatio n are cited in this report, the performance characterist ics were determined by the [facility] ([employer]) in compliance with CLIA'88 regulations. Some of these tests rely on the use of "analyte specific reagents" and are subject to specific labeling requirements by the FDA. The stains are performed on formalin-fix ed, paraffin-emb edded tissue, unless otherwise stated. Known positive and negative control tissues demonstrate appropriate staining. Results should be interpreted with caution given the likelihood of false negativity on decalcified specimens. This testing was developed by the [facility]. It has not been cleared or approved by the FDA. The FDA has determined that such clearance or approval is not necessary. Anatomical Location / Laterality Collection Method / Volume Ernestina ection Time Received Time Specimen (Source) 02/14/2023 3:46 PM CDT 02/15/20 3:46 PM CDT Morenajames Wilkerson BONE MARROW ORDERABLES FEED ELEVATOR WORKER-[employer] City/State/ZIP Code Phone Number Performing Address [place] [address], [facility] DEPT PATH AND [address] LAB MEDICINE * CHROMOSOMES FISH DNA PROBE (02/14/2023 3:11 PM CDT) Pathologist Signature Component Value Ref Test Method Analysis Performed A t Range Time Chromosomes Fish DNA Cytogenetics 02/16/2023 [facility] DEP T PATH AND Probe Report 2:28 PM LAB MEDICINE Available in CDT [facility] Anatomical Location / Laterality Collection Method / Volume Ernestina ection Time Received Time Specimen (Source) BONE MARROW SPECIMEN / Unknown 02/14/2023 3:11 PM CDT 02/14/2023 3:27 PM CDT Morena Wilkerson BONE MARROW ORDERABLES FEED ELEVATOR WORKER-[facility]/State/ZIP Code Phone Number Performing [place] [address], [employer] DEPT PATH AND [address] LAB MEDICINE * CHROMOSOMES BONE MARROW (02/14/2023 3:11 PM CDT) Pathologist Signature Component Value Ref Test Method Analysis Performed A t Range Time Chromosomes Bone Cytogenetics 02/22/2023 [facility] DEPT PA TH AND Marrow Report 11:28 AM LAB MEDICINE Available in CDT [employer] Anatomical Location / Laterality Collection Method / Volume Ernestina ection Time Received Time Specimen (Source) BONE MARROW SPECIMEN / Unknown 02/14/2023 3:11 PM CDT 02/14/2023 3:27 PM CDT Morena Wilkerson BONE MARROW ORDERABLES [facility]/ZIP Code Phone Number Performing [place] [address], [employer] DEPT PATH AND [address] LAB MEDICINE * FE STAIN (02/14/2023 3:11 PM CDT) Pathologist Signature Component Value Ref Test Method Analysis Performed A t Range Time Bone Marrow FE SEE 02/14/2023 [facility] DEPT PATH AND PATHOLOGY 1:11 PM LAB MEDICINE REPORT CDT Anatomical Location / Laterality Collection Method / Volume Ernestina ection Time Received Time Specimen (Source) BONE MARROW SPECIMEN / Unknown 02/14/2023 3:11 PM CDT 02/14/2023 3:26 PM CDT Bone Marrow Morena Wilkerson BONE MARROW ORDERABLES FEED ELEVATOR WORKER-[facility]/State/ZIP Code Phone Number Performing [place] [address], [employer] DEPT PATH AND [address] LAB MEDICINE * BONE MARROW ASP (02/14/2023 3:11 PM CDT) Pathologist Signature Component Value Ref Test Method Analysis Performed A t Range Time Bone Marrow Asp SEE 02/15/2023 [facility] DEPT PAT H AND PATHOLOGY 7:52 AM LAB MEDICINE REPORT CDT Anatomical Location / Laterality Collection Method / Volume Ernestina ection Time Received Time Specimen (Source) BONE MARROW SPECIMEN / Unknown 02/14/2023 3:11 PM CDT 02/14/2023 3:26 PM CDT Bone Marrow Morena Wilkerson BONE MARROW ORDERABLES FEED ELEVATOR WORKER-[employer] [facility]/State/ZIP Code Phone Number Performing [place] [address], [employer] DEPT PATH AND [address] LAB MEDICINE * BONE MARROW BIOPSY (02/14/2023 3:11 PM CDT) Pathologist Signature Component Value Ref Test Method Analysis Performed A t Range Time Bone Marrow Bx SEE 02/15/2023 [facility] DEPT PATH AND PATHOLOGY 7:52 AM LAB MEDICINE REPORT CDT Anatomical Location / Laterality Collection Method / Volume Ernestina ection Time Received Time Specimen (Source) BONE MARROW SPECIMEN / Unknown 02/14/2023 3:11 PM CDT 02/14/2023 3:26 PM CDT Bone Marrow Morena Wilkerson BONE MARROW ORDERABLES FEED ELEVATOR WORKER-[employer] [facility]/ZIP Code Phone Number Performing [place] [address], [employer] DEPT PATH AND [address] [facility] LAB MEDICINE * MRSA PNEUMONIA SCREEN (02/13/2023 9:29 PM CDT) Pathologist Signature Component Value Ref Test Method Analysis Performed A t Range Time MRSA Pneumonia PCR NOT DETECTED [facility] AND The negative 1:14 AM LAB MEDICINE predictive CDT value of this assay for MRSA pneumonia is high. Discontinuat ion of anti-MRSA pneumonia therapy is recommended in patients without additional clinical features that warrant MRSA therapy. Contact infectious Diseases or Antimicrobia l Stewardship with questions. Anatomical Location / Laterality Collection Method / Volume Ernestina ection Time Received Time Specimen (Source) SWAB OF INTERNAL NOSE / Unknown 02/13/2023 9:29 PM CDT 02/13/2023 11:19 PM CDT [employer] Angelita Stevens MD MICROBIOLOGY ORDERABLES City/State/ZIP Code Phone Number Performing [place] [address], [employer] DEPT PATH AND [address] LAB MEDICINE * ECG 12-LEAD (02/13/2023 8:57 PM CDT) Pathologist Signature Component Value Ref Test Method Analysis Performed A t Range Time VENTRICULAR RATE 66 BPM GE MUSE P-R INTERVAL ms GE MUSE QRS DURATION 156 ms GE MUSE Q-T INTERVAL 428 ms GE MUSE QTC CALCULATION 448 ms GE MUSE (BAZETT) P AXIS degrees GE MUSE R AXIS -59 degrees GE MUSE T AXIS -6 degrees GE MUSE Anatomical Location / Laterality Collection Method / Volume Ernestina ection Time Received Time Specimen (Source) 02/13/2023 8:57 PM CDT 02/14/20 10:10 PM CDT Impressions GE MUSE - 02/13/2023 10:10 PM CDT Atrial fibrillation with occasional ventricular-paced complexes Right bundle branch block Left anterior fascicular block Bifascicular block Abnormal ECG Confirmed by Ana Kathleen (62) on 02/13/2023 10:10:10 PM Narrative Procedure Note Ana Kathleen MD - 02/13/2023 IMPRESSION Atrial fibrillation with occasional ventricular-paced complexes Right bundle branch block Left anterior fascicular block Bifascicular block Abnormal ECG Confirmed by Ana Kathleen (62) on 02/13/2023 10:10:10 PM [facility] ECG ORDERABLES FEED ELEVATOR WORKER-[employer] City/State/ZIP Code Phone Number Performing Address Organization GE MUSE * FLOW CYTOMETRY (02/13/2023 8:31 PM CDT) Pathologist Signature Component Value Ref Test Method Analysis Performed A t Range Time PATHOLOGY REPORT THE [facility] [place] [facility] 12:00 AM LAB MEDICINE OF [facility] [email or web address] barbara Yusuf MD, Director of Flow Cytometry Laboratory Department of Pathology and Laboratory Medicine [address] [place] [address] Surgical Pathology Office: Fax: FLOW CYTOMETRY REPORT NAME: BRAULIO LÓPEZ SURG PATH #: [id number] MR #: [id number] SPECIMEN CLASS: LC BILLING #: [id number] ALT ID #: LOCATION: [id number] DATE OF PROCEDURE: 02/13/2023 AGE: 82 SEX: M DATE RECEIVED: 02/14/2023 : 1940 TIME RECEIVED: 08:00 PHYSICIAN: ANGELITA STEVENS DATE OF REPORT: 02/14/2023 COPY TO: DATE OF PRINTIN02/14/2023 Material Received: A: Peripheral blood ############ ############ ############ ############ ############ ############ Final Diagnosis: A. 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 See interpretati on. Interpretati on: The myeloid blasts comprise 56% of total cells. The blasts are positive for CD34, CD13, CD33, CD38, CD117, HLA-DR. MPO and partial positive CD11b, CD123 and negative for cCD3, CD19, cCD22, cCD79a, TdT, CD11c, CD14, CD15, CD64. 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 Attestation: By this signature, I attest that I have personally formulated the final interpretati on expressed in this report and that the above diagnosis is based upon my examination of the slides and/or other material indicated in this report. +++Masoud torres Signed Out By+++ corbin/02/14/2023 Interpreted by: Sorin Freeman MD 02/14/2023 ############ ############ ############ ############ ############ ############ Lab Data: Flow Cytometry - Acute Leukemia Panel Myeloid Associated Markers (% Positive Cells): CD11b = 36; CD11c = 6; CD13 = 97; CD14 = 1; CD15 = 2; CD33 = 95; CD64 = 1; CD117 = 88; cyMPO = 99; cyMPO+CD34+ = 98 B Cell Associated Markers (% Positive Cells): CD19 = 0; CD20 = 0; cyCD22 = 1; juKT06r = 0 Ackerly = 0; Lambda = 0; Ackerly:Lambda ratio = n/a T Cell Associated Markers (% Positive Cells): CD1a = 0; CD2 = 0; sCD3 = 0; cyCD3 = 0; CD4 = 0; CD5 = 0; CD7 = 98; CD8 = 0 CD4:CD8 ratio = n/a Penny s Markers (% Positive Cells): CD10 = 0; CD34 = 94; CD34+CD13+ = 93; CD34+CD117+ = 88; CD38 = 100; CD45 = 51; CD56 = 1; CD123 = 62; HLA-DR = 93; nTdT = 0 Cell Viability (%): n/a Number of Cells Analyzed: 40401 Total Number of Markers: 31 Summary of Marker Combinations : Dr/33/34/13/ 123/45/56/15 ; 117/34/64/11 b/45/14/11c; K/L/34/10/19 /45/38/20; 2/7/4/3/1a/4 5/5/8; nTdt/cy22/34 /cy3/cy79a/4 5/cyMPO/19 This test was developed and its performance characterist ics determined by the [facility] Flow Cytometry Laboratory. It has not been cleared or approved by the U.S. Food and Drug Administrati on (FDA). The FDA has determined that such clearance or approval is not necessary. Anatomical Location / Laterality Collection Method / Volume Ernestina ection Time Received Time Specimen (Source) 02/13/2023 8:31 PM CDT 02/15/20 8:00 AM CDT Angelita tSevens MD PATHOLOGY/CYTOLOGY ORDERABL ES City/State/ZIP Code Phone Number Performing Address [place] [address], [facility] DEPT PATH AND [address] LAB MEDICINE * LEUKEMIA-LYMPHOMA PANEL BLOOD (02/13/2023 8:31 PM CDT) Pathologist Signature Component Value Ref Test Method Analysis Performed A t Range Time Leuk/Lymph SEE 02/14/2023 [facility] DEPT PATH AND Interpretation PATHOLOGY 6:49 AM LAB MEDICINE REPORT CDT Specimen/LLM BLOOD 02/14/2023 [facility] DEPT PATH AND 6:49 AM LAB MEDICINE CDT Anatomical Location / Laterality Collection Method / Volume Ernestina ection Time Received Time Specimen (Source) BLOOD / Unknown 02/13/2023 8:31 PM CDT 02/15/20 6:49 AM CDT [facility] LABORATORY ORDERABLES FEED ELEVATOR WORKER-[employer] City/State/ZIP Code Phone Number Performing Address [place] [address], [facility] [address] [facility] MEDICINE * TP53 PCR ARRAY BLOOD (02/13/2023 8:30 PM CDT) Pathologist Signature Component Value Ref Test Method Analysis Performed A t Range Time TP53 PCR ARRAY Blood Patient 02/16/2023 REFER[facility] LAB Name: 12:29 PM JACOBY López Physician(s) : KINGA Kuhn Ordering Facility: [facility] Date of , Sex: 1940 , M Collection Date: 02/13/2023 Received Date: 02/14/2023 Report Date: 02/16/2023 CM Reference #: [id number] Pathology Case #: n/a Test Performed TP53 PCR Array Specimen Type Blood Analytical Results NOT DETECTED. None of the TP53 variants screened by this assay were detected. See interpretati on. Interpretati on Not Detected. No TP53 gene variants were detected with this assay. A NOT DETECTED result does not rule out the presence of an TP53 gene variant beyond the limits of this technology or not included in the gene regions covered by this assay. The presence of a TP53 gene variant may be a predictor of response to some cancer therapies. The performance characterist ics for this assay are as follows: Single base substitution s: specificity 91%; sensitivity >99%; accuracy 96%; repeatabilit y and reproducibil ity 100% (intra- and inter- assay); analytical sensitivity 1.25% of variant DNA in wild type background. The Human TP53 Gene [employer] Somatic Mutation PCR Array allows the detection of 92 unique mutations in the human TP53 gene. The DNA sequence mutation assays in the array detect the most frequent mutations in TP53 compiled from over 22,000 reported cancer sample sequences. Each mutation assay is bench-tested for the sensitive detection of a low percentage of mutation-con taining DNA in a background of wild-type genomic DNA. The 96-well format of this array profiles the mutation status of 1 sample. Test results should be interpreted only in the context of total clinical information. Therapeutic action should not be taken based solely on these results. The final interpretati on of results for clinical management of the patient is the responsibili ty of the managing physician. Methodology Genomic DNA is extracted from peripheral blood, bone marrow or a formalin-fix ed paraffin-emb edded (FFPE) specimen containing tumor cells. Extracted DNA is then analyzed using ARMS technology to identify the presence of clinically relevant variants within the TP53 gene. Intended Use Acquisition of somatic mutations in human genomic DNA is an important event during tumorigenesi s and cancer progression [PMID: 17652521]. Somatic mutations can occur as single mutations within a gene, multiple mutations within a gene, or mutations present across related genes in a variety of cancers. Cells may respond differently to treatment regimens based on their somatic mutation profile. Pathogenic TP53 variants are observed in 10% of acute myeloid leukemia (AML) cases and are associated with therapy-rela merline AML and complex cytogenetics . Moreover, AML patients harboring TP53 variants typically demonstrate poor response to conventional therapies as well as decreased long-term survival after allogeneic transplants [PMIDs: 26541408; 29600304]. Determining TP53 status holds crucial value when determining treatment plans. Disclaimer This test was developed and its performance characterist ics determined by [facility]. It has not been cleared or approved by the US Food and Drug Administrati on. The FDA does not require this test to go through premarket FDA review. This test is used for clinical purposes. It should not be regarded as investigatio nal or for research. This laboratory is certified under the Clinical Laboratory Improvement Amendments (CLIA) as qualified to perform high complexity clinical laboratory testing. Technical component performed by the [facility] at [address] [place] [address]. CLIA # [id number]. Professional component performed by [facility] at [address] [place] [address]. CLIA # [id number]. Signed by: Zach Dobson MD on 02/16/2023 Anatomical Location / Laterality Collection Method / Volume Ernestina ection Time Received Time Specimen (Source) 02/13/2023 8:30 PM CDT 02/14/20 8:59 PM CDT [facility] LABORATORY ORDERABLES FEED ELEVATOR WORKER-[employer] City/State/ZIP Code Phone Number Performing Address Organization REFERENCE LAB See results for address. * PERIPHERAL SMEAR (02/13/2023 8:30 PM CDT) Pathologist Signature Component Value Ref Test Method Analysis Performed A t Range Time Peripheral Smear OTHERS ARE 02/14/2023 [facility] DEPT PA TH AND BLASTS. SEE 10:37 AM LAB MEDICINE RESULTS OF CDT RECENT PERIPHERAL BLOOD FLOW CYTOMETRY ([id number]). Pathologist INTERPRETED 02/14/2023 [facility] DEPT PATH AND Signature BY AGUSTO 10:37 AM LAB MEDICINE ASHLY Hollis CDT By the PATH SIGNATURE ABOVE, I attest that I have personally formulated the final interpretati on expressed in this report and that the above diagnosis is based upon my examination of the slides and/or other material indicated in this report. Anatomical Location / Laterality Collection Method / Volume Ernestina ection Time Received Time Specimen (Source) BLOOD / Unknown 02/13/2023 8:30 PM CDT 02/14/20 8:59 PM CDT [facility] LABORATORY ORDERABLES FEED ELEVATOR WORKER-VP [employer] [facility]/State/ZIP Code Phone Number Performing Address Organization [address] DEPT PATH AND [address] LAB MEDICINE * (ABNORMAL) LDH-LACTATE DEHYDROGENASE (02/13/2023 8:30 PM CDT) Pathologist Signature Component Value Ref Test Method Analysis Performed A t Range Time Lactate 290 (H) 100 - 02/13/2023 [facility] DEPT PAT H AND Dehydrogenase 210 U/L 9:31 PM LAB MEDICINE CDT Anatomical Location / Laterality Collection Method / Volume Ernestina ection Time Received Time Specimen (Source) BLOOD / Unknown 02/13/2023 8:30 PM CDT 02/14/20 8:59 PM CDT [facility] LABORATORY ORDERABLES FEED ELEVATOR WORKER-[employer] [facility]/State/ZIP Code Phone Number Performing [place] [address], [facility] DEPT PATH AND [address] LAB MEDICINE * HEMOGLOBIN A1C (02/13/2023 8:30 PM CDT) Pathologist Signature Component Value Ref Test Method Analysis Performed A t Range Time Hemoglobin A1C 5.0 4.0 - 02/14/2023 [facility] DEPT PATH AND 5.7 % 9:28 AM LAB MEDICINE CDT Comment: The ADA recommends that most patients with type 1 and type 2 diabetes maintain an A1c level <7%. Anatomical Location / Laterality Collection Method / Volume Ernestina ection Time Received Time Specimen (Source) 02/13/2023 8:30 PM CDT 02/14/20 8:59 PM CDT [facility] LABORATORY ORDERABLES FEED ELEVATOR WORKER-[employer] [facility]/State/ZIP Code Phone Number Performing Address [place] [address], [facility] AND [address] LAB MEDICINE * COVID-19 (SARS-COV-2) PCR (02/13/2023 8:28 PM CDT) Pathologist Signature Component Value Ref Test Method Analysis Performed A t Range Time COVID-19 FLOCKED SWAB 02/13/2023 [facility] DEPT PATH AND (SARS-CoV-2) PCR NASOPHARYNGE 8:30 PM LAB MEDICINE Source AL CDT COVID-19 NOT DETECTED DN-NOT 02/13/2023 [facility] DEPT PA TH AND (SARS-CoV-2) PCR DETECTED 10:19 PM LAB MEDICINE CDT Comment: This assay is designed to detect the N2, E, and RdRp genes of SARS-CoV-2 using nucleic acid amplification. A Not Detected result does not preclude the possibility of SARS-CoV-2 infection, since the adequacy of sample collection and/or low viral burden may result in the presence of viral nucleic acids below the analytical sensitivity of this test method. Test results should be used along with other clinical and laboratory data in making the diagnosis. Test parameters have not been validated for screening in asymptomatic patients. This test has not been FDA cleared or approved. This test is authorized for use under the FDA Emergency Use Authorization and performance characteristics have been verified by the [facility] clinical laboratory. Fact sheet for providers: https://www.fda.gov/ media/759302/downloa d Fact sheet for patients: https://www.fda.gov/ media/986038/downloa d Anatomical Location / Laterality Collection Method / Volume Ernestina ection Time Received Time Specimen (Source) NASOPHARYNGEAL STRUCTURE / Unknown 02/13/2023 8 :28 PM CDT 02/13/2023 8:50 PM CDT [employer] [place] MICROBIOLOGY ORDERABLES FEED ELEVATOR WORKER-VP [employer] [facility]/State/ZIP Code Phone Number Performing Address [place] [address], [facility] AND [address] [facility] MED[facility]INE * RVP VIRAL PANEL PCR (02/13/2023 8:28 PM CDT) Pathologist Signature Component Value Ref Test Method Analysis Performed A t Range Time Specimen Source Resp FLOCKED SWAB 02/14/2023 [facility] DEP T PATH AND Panel NASOPHARYNGE 2:01 AM LAB MEDICINE AL CDT Use of this test on specimens other than nasopharynge al swabs has not been cleared by the [place] Food and Drug Administrati on. The performance characterist ics were determined by the [facility]. Adenovirus NOT DETECTED DN-NOT 02/14/2023 [facility] DEPT PA TH AND DETECTED 2:01 AM LAB MEDICINE CDT Coronavirus 229E NOT DETECTED DN-NOT 02/14/2023 [facility] DE PT PATH AND DETECTED 2:01 AM LAB MEDICINE CDT Coronavirus HKU1 NOT DETECTED DN-NOT 02/14/2023 [facility] DE PT PATH AND DETECTED 2:01 AM LAB MEDICINE CDT Coronavirus NL63 NOT DETECTED DN-NOT 02/14/2023 [facility] DE PT PATH AND DETECTED 2:01 AM LAB MEDICINE CDT Coronavirus OC43 NOT DETECTED DN-NOT 02/14/2023 [facility] DE PT PATH AND DETECTED 2:01 AM LAB MEDICINE CDT SARS-CoV-2 NOT DETECTED DN-NOT [facility] AND DETECTED 2:01 AM LAB MEDICINE CDT Human NOT DETECTED DN-NOT 02/14/2023 [facility] DE[facility] PA TH AND Metapneumovirus DETECTED 2:01 AM LAB MEDICINE CDT Human NOT DETECTED DN-NOT 02/14/2023 [facility] DE[facility] PA TH AND Rhinovirus/ENTEROVIR DETECTED 2:01 AM LAB MEDI CINE US CDT Influenza A H1N1 NOT DETECTED DN-NOT 02/14/2023 [facility] DE PT PATH AND 2009 DETECTED 2:01 AM LAB MEDICINE CDT Influenza A H1 NOT DETECTED DN-NOT 02/14/2023 [facility] DEPT PATH AND DETECTED 2:01 AM LAB MEDICINE CDT Influenza A H3 NOT DETECTED DN-NOT 02/14/2023 [facility] DE[facility] PATH AND DETECTED 2:01 AM LAB MEDICINE CDT Influenza B NOT DETECTED DN-NOT 02/14/2023 [facility] DEPT PA TH AND DETECTED 2:01 AM LAB MEDICINE CDT Parainfluenza virus NOT DETECTED DN-NOT 02/14/2023 [facility] DEPT PATH AND 1 DETECTED 2:01 AM LAB MEDICINE CDT Parainfluenza virus NOT DETECTED DN-NOT 02/14/2023 [facility] DEPT PATH AND 2 DETECTED 2:01 AM LAB MEDICINE CDT Parainfluenza virus NOT DETECTED DN-NOT 02/14/2023 [facility] DEPT PATH AND 3 DETECTED 2:01 AM LAB MEDICINE CDT Parainfluenza virus NOT DETECTED DN-NOT 02/14/2023 [facility] DEPT PATH AND 4 DETECTED 2:01 AM LAB MEDICINE CDT RSV NOT DETECTED DN-NOT 02/14/2023 [facility] DEPT PA TH AND DETECTED 2:01 AM LAB MEDICINE CDT Bordetella NOT DETECTED DN-NOT 02/14/2023 [facility] DEPT PA TH AND parapertussis DETECTED 2:01 AM LAB MEDICINE CDT Bordetella pertussis NOT DETECTED DN-NOT 02/14/2023 [facility] DEPT PATH AND DETECTED 2:01 AM LAB MEDICINE CDT Chlamydia pneumoniae NOT DETECTED DN-NOT 02/14/2023 [facility] DEPT PATH AND DETECTED 2:01 AM LAB MEDICINE CDT Mycoplasma NOT DETECTED DN-NOT 02/14/2023 [facility] DEPT PA TH AND pneumoniae DETECTED 2:01 AM LAB MEDICINE CDT Anatomical Location / Laterality Collection Method / Volume Ernestina ection Time Received Time Specimen (Source) 02/13/2023 8:28 PM CDT 02/14/20 8:50 PM CDT [place] FLUID ORDERABLES FEED ELEVATOR WORKER-VP [employer] City/State/ZIP Code Phone Number Performing Address [place] [address], [facility] DEPT PATH AND [address] LAB MEDICINE * TELEMETRY STRIPS-SCAN (02/13/2023 12:00 AM CDT) Narrative 02/13/2023 12:00 AM CDT Ordered by an unspecified provider. Scanned Document PROCEDURE DUMMY ORDERS * TELEMETRY STRIPS-SCAN (02/13/2023 12:00 AM CDT) Narrative 02/13/2023 12:00 AM CDT Ordered by an unspecified provider. Scanned Document PROCEDURE DUMMY ORDERS * TELEMETRY STRIPS-SCAN (02/13/2023 12:00 AM CDT) Narrative 02/13/2023 12:00 AM CDT Ordered by an unspecified provider. Scanned Document PROCEDURE DUMMY ORDERS * TELEMETRY STRIPS-SCAN (02/13/2023 12:00 AM CDT) Narrative 02/13/2023 12:00 AM CDT Ordered by an unspecified provider. Scanned Document PROCEDURE DUMMY ORDERS * TELEMETRY STRIPS-SCAN (02/13/2023 12:00 AM CDT) Narrative 02/13/2023 12:00 AM CDT Ordered by an unspecified provider. Scanned Document PROCEDURE DUMMY ORDERS * TELEMETRY STRIPS-SCAN (02/13/2023 12:00 AM CDT) Narrative 02/13/2023 12:00 AM CDT Ordered by an unspecified provider. Scanned Document PROCEDURE DUMMY ORDERS * TELEMETRY STRIPS-SCAN (02/13/2023 12:00 AM CDT) Narrative 02/13/2023 12:00 AM CDT Ordered by an unspecified provider. Scanned Document PROCEDURE DUMMY ORDERS * TELEMETRY STRIPS-SCAN (02/13/2023 12:00 AM CDT) Narrative 02/13/2023 12:00 AM CDT Ordered by an unspecified provider. Scanned Document PROCEDURE DUMMY ORDERS * TELEMETRY STRIPS-SCAN (02/13/2023 12:00 AM CDT) Narrative 02/13/2023 12:00 AM CDT Ordered by an unspecified provider. Scanned Document PROCEDURE DUMMY ORDERS * TELEMETRY STRIPS-SCAN (02/13/2023 12:00 AM CDT) Narrative 02/13/2023 12:00 AM CDT Ordered by an unspecified provider. Scanned Document PROCEDURE DUMMY ORDERS * TELEMETRY STRIPS-SCAN (02/13/2023 12:00 AM CDT) Narrative 02/13/2023 12:00 AM CDT Ordered by an unspecified provider. Scanned Document PROCEDURE DUMMY ORDERS * TELEMETRY STRIPS-SCAN (02/13/2023 12:00 AM CDT) Narrative 02/13/2023 12:00 AM CDT Ordered by an unspecified provider. Scanned Document PROCEDURE DUMMY ORDERS * TELEMETRY STRIPS-SCAN (02/13/2023 12:00 AM CDT) Narrative 02/13/2023 12:00 AM CDT Ordered by an unspecified provider. Scanned Document PROCEDURE DUMMY ORDERS * TELEMETRY STRIPS-SCAN (02/13/2023 12:00 AM CDT) Narrative 02/13/2023 12:00 AM CDT Ordered by an unspecified provider. Scanned Document PROCEDURE DUMMY ORDERS * TELEMETRY STRIPS-SCAN (02/13/2023 12:00 AM CDT) Narrative 02/13/2023 12:00 AM CDT Ordered by an unspecified provider. Scanned Document PROCEDURE DUMMY ORDERS * TELEMETRY STRIPS-SCAN (02/13/2023 12:00 AM CDT) Narrative 02/13/2023 12:00 AM CDT Ordered by an unspecified provider. Scanned Document PROCEDURE DUMMY ORDERS * TELEMETRY STRIPS-SCAN (02/13/2023 12:00 AM CDT) Narrative 02/13/2023 12:00 AM CDT Ordered by an unspecified provider. Scanned Document PROCEDURE DUMMY ORDERS * TELEMETRY STRIPS-SCAN (02/13/2023 12:00 AM CDT) Narrative 02/13/2023 12:00 AM CDT Ordered by an unspecified provider. Scanned Document PROCEDURE DUMMY ORDERS * TELEMETRY STRIPS-SCAN (02/13/2023 12:00 AM CDT) Narrative 02/13/2023 12:00 AM CDT Ordered by an unspecified provider. Scanned Document PROCEDURE DUMMY ORDERS * TELEMETRY STRIPS-SCAN (02/13/2023 12:00 AM CDT) Narrative 02/13/2023 12:00 AM CDT Ordered by an unspecified provider. Scanned Document PROCEDURE DUMMY ORDERS * TELEMETRY STRIPS-SCAN (02/13/2023 12:00 AM CDT) Narrative 02/13/2023 12:00 AM CDT Ordered by an unspecified provider. Scanned Document PROCEDURE DUMMY ORDERS * TELEMETRY STRIPS-SCAN (02/13/2023 12:00 AM CDT) Narrative 02/13/2023 12:00 AM CDT Ordered by an unspecified provider. Scanned Document PROCEDURE DUMMY ORDERS * TELEMETRY STRIPS-SCAN (02/13/2023 12:00 AM CDT) Narrative 02/13/2023 12:00 AM CDT Ordered by an unspecified provider. Scanned Document PROCEDURE DUMMY ORDERS * TELEMETRY STRIPS-SCAN (02/13/2023 12:00 AM CDT) Narrative 02/13/2023 12:00 AM CDT Ordered by an unspecified provider. 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 Does the patient Yes want any intervention for a pre-arrest emergency which would necessitate transfer to an ICU setting? Respiratory No emergency: does the patient want to have intubation with mechanical ventilation? Symptomatic/hypotens Yes thang dysrhythmia with a pulse: does the patient want cardioversion? Hypotension: does Yes the patient want the use of vasopressors if needed for blood pressure? Respiratory Yes emergency: does the patient want to have a trial of non-invasive positive pressure ventilation (NIPPV/BiPAP)? If all questions Instruction Acknowledged were answered "No", DNAR-FI is not the correct resuscitation status order, please refer to reference links below to help you determine the correct order: Date Inactivated Comments Code Status Date Activated 02/17/2023 9:58 AM Full Code 02/13/2023 8:19 PM Comments Question Answer Provider has No, more discussion needed discussed Code Status w/Patient or Family? Care Teams Start Date End Date Clean Out Driller Relationship Specialty 02/13/23 Bri Shetty MD PCP - General Family [address] [phone]
--- OUTSIDE RECORDS SUMMARY | 2023-03-01 14:27 | XMS REPORT | Encounter Summary ---
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 CDT - [address] [facility]. 02/17/2023 [address] 1, [id number] 2:14 PM [place], [place] CDT [id number] Social History Date Tobacco Use Types Packs/Day Years Used Smoking Tobacco: Former Cigarettes Smokeless Tobacco: Never Date Recorded Alcohol Use Answer Alcohol Use Not on file Male: 9+ ounces (15+ Standard Drinks) per week 0 Threshold Female: 4.8+ ounces (8+ Standard Drinks) per week No t on file Threshold Date Recorded Sex and Gender Information Value 02/14/2023 9:32 AM CDT Sex Assigned at Male 02/14/2023 9:32 AM CDT Gender Identity Male Sexual Orientation Not on file documented as of this encounter Functional Status Date of Assessment Functional Status Response 02/13/2023 Does the patient have a hearing impairment: No documented as of this encounter Medications at Time of Discharge Start Date End Date Medication Sig Dispensed Refills 03/01/2023 acyclovir (ZOVIRAX) 800 Take one 60 tablet 3 mg tablet tablet by mouth twice daily. 03/01/2023 apixaban (ELIQUIS) 5 mg Take one 180 tablet 0 tablet tablet by mouth twice daily. ON HOLD 03/01/2023 aspirin 81 mg chewable Chew one 90 tablet 0 tablet tablet by mouth daily. ON HOLD dutasteride-tamsulosin ER Take one 0 (LESLEY) 0.5-0.4 mg capsule by capsule mouth daily with dinner. evolocumab (REPATHA Inject 3.5 mL 0 PUSHTRONIX) 420 mg/3.5 mL under the INFUSOR CARTRIDGE skin every 30 days. Last received week of 02/06/2023 03/01/2023 fluconazole (DIFLUCAN) Take two 0 200 mg tablet tablets by mouth daily. 03/01/2023 levoFLOXacin (LEVAQUIN) Take one 30 tablet 0 750 mg tablet tablet by mouth daily. 03/01/2023 metoprolol tartrate 37.5 Take one 60 tablet 3 mg tablet tablet by mouth twice daily. omeprazole DR (PRILOSEC) Take one 0 20 mg capsule capsule by mouth daily before breakfast. oxybutynin XL (DITROPAN Take one 0 XL) 15 mg tablet tablet by mouth daily. 03/01/2023 polyethylene glycol 3350 Take one 12 packet 0 (MIRALAX) 17 g packet packet by mouth twice daily. vitamins, multiple cap Take one 0 capsule by mouth daily. 02/28/2023 apixaban (ELIQUIS) 5 mg Take one 0 tablet tablet by mouth twice daily. 02/28/2023 aspirin 81 mg chewable Chew one 0 tablet tablet by mouth daily. 03/01/2023 chlorthalidone (HYGROTON) Take one-half 0 25 mg tablet tablet by mouth daily. 03/01/2023 CHOLEcalciferoL (vitamin Take one 0 D3) 1,000 units tablet tablet by mouth twice daily. 03/01/2023 cyanocobalamin (vitamin Take one 0 B-12) 1,000 mcg tablet tablet by mouth daily. 03/01/2023 losartan (COZAAR) 100 mg Take one 0 tablet tablet by mouth daily. 03/01/2023 metoprolol tartrate Take one 0 (LOPRESSOR) 100 mg tablet tablet by mouth twice daily. 02/17/2023 02/28/2023 posaconazole EC (NOXAFIL) Take three 90 tablet 3 100 mg tablet tablets by mouth daily with breakfast. Take with food. 03/01/2023 SITagliptin phosphate Take one 90 tablet 3 (JANUVIA) 100 mg tablet tablet by mouth daily. documented as of this encounter Discharge Disposition Code Departure Means Destination Disposition Home Home or Self Care documented in this encounter Plan of Treatment Not on filedocumented as of this encounter Goals Goal Patient Associated Recent Progress Patient-Stat Aut hor Goal Type Problems ed? Improve quality of life Hospital On track (02/14/2023 [place], 9:24 AM CDT) RN documented as of this encounter Procedures Comments Procedure Name Priority Date/Time Associated Diag nosis CONSULT VASCULAR ACCESS Routine 02/17/2023 TEAM 11:47 AM CDT documented in this encounter Visit Diagnoses Not on filedocumented in this encounter Orders First Ordered Date Procedures Count Last Ordered Date CONSULT VASCULAR ACCESS TEAM 1 documented in this encounter Additional Health Concerns Noted Time Assessment 02/17/2023 9:08 PM CDT A fall risk assessment has been complet ed for the patient documented as of this encounter Care Teams Start Date End Date Embedded Engineer Relationship Specialty 02/13/23 Bri Shetty MD PCP - General Family [address] [address] documented as of this encounter
--- OUTSIDE RECORDS SUMMARY | 2023-03-01 14:27 | XMS REPORT | Encounter Summary ---
Author Author [facility] Organization [facility] Address Unknown Phone Unavailable Care Team Providers Care Head Of Design Name Role Phone Bri Shetty MD PCP Encounter Details Care Team Description Date Type Department Discharge Disposition: Home or Self Care 02/17/2023 Hospital Imaging: Medical Pa vilion 12:34 PM Encounter [address] CDT - Level 2 02/17/2023 [place], [place] 1:29 PM [id number] CDT [phone] Social History Date Tobacco Use Types Packs/Day [...] quality of life Hospital On track (02/14/2023 No Yumiko [place], 9:24 AM CDT) RN documented as of this encounter Procedures Comments Procedure Name Priority Date/Time Associated Diag nosis POC US NO READ Routine 02/17/2023 12:34 PM CDT documented in this encounter Results * POC US NO READ (02/17/2023 12:34 PM CDT) Anatomical Location / Laterality Collection Method / Volume Ernestina ection Time Received Time Specimen (Source) Narrative [facility] - 02/17/2023 12:34 PM CDT This order has been auto finalized and does not contain a result. Britt Stevens MD US ORDERABLES City/State/ZIP Code Phone Number Performing Address Organization [facility] documented in this encounter Visit Diagnoses Not on filedocumented in this encounter Additional Health Concerns Noted Time Assessment 02/17/2023 9:08 PM CDT A fall risk assessment has been complet ed for the patient documented as of this encounter Care Teams Start Date End Date Head Of Design Relationship Specialty 02/13/23 Bri Shetty MD PCP - General Family [address] [id number] documented as of this encounter
--- OUTSIDE RECORDS SUMMARY | 2023-03-01 14:27 | XMS REPORT | Encounter Summary ---
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 02/17/2023 [address], [address] 11:59 PM [place], [place] CDT [address] Social History Date Tobacco Use Types Packs/Day [...] CDT) RN documented as of this encounter Visit Diagnoses Not on filedocumented in this encounter Additional Health Concerns Noted Time Assessment 02/17/2023 9:08 PM CDT A fall risk assessment has been complet ed for the patient documented as of this encounter Care Teams Start Date End Date Tour Sales Representative Relationship Specialty 02/13/23 Bri Shetty MD PCP - General Family Medicine [address] [place] [phone] documented as of this encounter
--- OUTSIDE RECORDS SUMMARY | 2023-03-01 14:27 | XMS REPORT | Encounter Summary ---
Author Author [facility] Organization [facility] Address Unknown Phone Unavailable Care Team Providers Care Distribution A Class Lineman Name Role Phone Bri Shetty MD PCP Reason for Referral * Test (Routine) - Pending Review Diagnoses / Procedures Referred By Contact [facility] HEMATOLOGIC NEOPLASMS GENE PANEL BY NGS, WITH INTERPRETATION, NON BLOOD Morena Wilkerson APRN-NP [address] [place] [address] [facility] [address] [place] [address] Lab Referral ID Status Reason Start Date Expiration Visits Vi sits Date Requested Authorized [id number] Pending 02/14/2023 02/14/2024 1 1 Review Reason for Visit * Auth/Cert (Routine) Diagnoses / Procedures Referred By Contact [facility] Diagnoses 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 Referral ID Status Reason Start Date Expiration Visits Vi sits Date Requested Authorized [id number] 1 1 Encounter Details Care Team Description Date Type Department Male, Britt Suazo MD [address] [facility] [address] [place] [address] Yevgeniy Madrid DO [address] [facility] [address] [place] [address] 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) Discharge Disposition: Rehab Facility (Not [facility]) 02/13/2023 Hospital Patient Care Unit C A10: 8:09 PM Encounter Ella Schreiber CDT - [address] 03/01/2023 Level 10 12:00 PM [place], [place] CDT [id number] Social History Date Tobacco Use Types Packs/Day [...] on file documented as of this encounter Last Filed Vital Signs Reading Time Taken [...] 02/15/2023 2:47 PM CDT Body Mass Index documented in this encounter Functional Status Date of Assessment Functional Status Response 02/13/2023 Does the patient have a hearing impairment: No documented as of this encounter Discharge Summaries * Mara Rojas - 03/01/2023 10:28 AM CDT Case Management Progress Note NAME:Braulio López :[birth year] AGE: 82 y.o. ADMISSION DATE: 02/13/2023 DAYS ADMITTED: LOS: 16 days Today's Date: 03/01/2023 PLAN: Pt to d/c to [facility] today via [facility] stretcher transp ort at 1200. Expected Discharge Date: 03/01/2023 Is Patient Medically Stable: Yes Are there Barriers to Discharge? no INTERVENTION/DISPOSITION: Discharge Planning Discharge Planning: Inpatient Rehabilitation SW spoke with [facility] rehab admissions who report they are able to accept pt today. Facility is able to accommodate transfusion needs and pt is ab le to be seen by Dr. Neri if needs arise. Dr. Stevens planning to contact Dr. Harley gil for hand off. SW received approval from Leadership to cover the cost of d/c transport via [employer], approximate cost $967. well point pumping supervisor scheduled for 1200. Team to complete d/c orders and will include, line care, wound care, and transfusion parameters. SW faxed signed d/c orders to [phone]. Number for RN report is [phone]. S W updated bedside RN and pt/spouse who were all in agreement with plan. JONATHAN taske d [employer] CASTER to arrange transport and deliver transfer packet to [facility], appreciate a ssistance. Team completed DNAR during rounds. No further SW needs identified for d/c. Transportation Does the Patient Need Case Management to Arrange Discharge Transport ? (ex: facility, ambulance, wheelchair/stretcher, Medicaid, cab, other): No Will the Patient Use Family Transport?: Yes Transportation Name, Phone and Availability #1: Marta López Support Support: Pt/Family Updates re:POC or DC Plan Pt discussed with Acute Leuk team during huddle. Pt is d13 of chemotherapy, per team pt is medically stable for d/c today. PT/OT following, recommending inpt se tting. Info or Referral Positive SDOH Domains and Potential Barriers Medication Needs Medication Needs: Medication Prior-Auth (Posaconazole covered, $5 co pay) Medication: Posaconazole Non Garment Sewing Machine Operator: Ruth Bob Date Initiated: 02/17/23 Insurance Company: [employer] Route Submitted: Cover my meds Financial Legal Legal: DPOA & Advance Directives Other Discharge Disposition Selected Continued Care - Admitted Since 02/13/2023 No services have been selected for the patient. Mara Rojas * Ruth Frost - 03/01/2023 8:28 AM CDT MONOT[employer] CASTER Note: Scheduled stretcher transportation with [employer] ([phone]): $967 for 03/01/20 at 12:00 PM per request of [employer] Self. Delivered transfer packet to pts locked drawer outside of room Ruth Frost Music Coordinator For additional assistance please contact [facility] * Ruth Bob RN - 02/28/2023 3:25 PM CDT Case Management Progress Note NAME:Braulio López :[birth year] AGE: 82 y.o. ADMISSION DATE: 02/13/2023 DAYS ADMITTED: LOS: 15 days Today's Date: 02/28/2023 PLAN: Patient will discharge with caregiver support when medically ready Expected Discharge Date: 03/03/2023 Is Patient Medically Stable: No, Please explain: medical workup Are there Barriers to Discharge? no INTERVENTION/DISPOSITION: Discharge Planning Discharge Planning: Assisted Facility Transportation Does the Patient Need Case Management to Arrange Discharge Transport ? (ex: facility, ambulance, wheelchair/stretcher, Medicaid, cab, other): No Will the Patient Use Family Transport?: Yes Transportation Name, Phone and Availability #1: Marta López Support Support: Pt/Family Updates re:POC or DC Plan *Patient may discharge to SNF as does not feel able to assist with all of his needs at this time. Info or Referral Positive SDOH Domains and Potential Barriers Medication Needs Medication Needs: Medication Prior-Auth (Posaconazole covered, $5 co pay) Medication: Posaconazole Non Garment Sewing Machine Operator: Ruth Bob Date Initiated: 02/17/23 Insurance Company: [employer] Route Submitted: Cover my meds Financial Legal Legal: DPOA & Advance Directives Other Discharge Disposition Selected Continued Care - Admitted Since 02/13/2023 No services have been selected for the patient. Ruth Bob, RN Voalte * Ruth Frost - 02/28/2023 3:14 PM CDT Patient Transportation Quote Request Received request from [employer] to check on quotes for stretcher van to transfer pt to [address] [facility] [address], [employer] [facility] ([phone]): $890 (call for availability) [employer] ([phone]): $1350 (availability tomorrow) [employer] ([phone]): $967 (availability around noon as of now) Ruth Frost Music Coordinator For further assistance please contact [facility] * Mara Rojas - 02/28/2023 9:53 AM CDT Case Management Progress Note NAME:Braulio López :[birth year] AGE: 82 y.o. ADMISSION DATE: 02/13/2023 DAYS ADMITTED: LOS: 15 days Today's Date: 02/28/2023 PLAN: Anticipate d/c to SNF when placement obtained. Expected Discharge Date: 03/03/2023 Is Patient Medically Stable: Yes Are there Barriers to Discharge? yes (placement) INTERVENTION/DISPOSITION: Discharge Planning Discharge Planning: Assisted Facility Transportation Does the Patient Need Case Management to Arrange Discharge Transport ? (ex: facility, ambulance, wheelchair/stretcher, Medicaid, cab, other): No Will the Patient Use Family Transport?: Yes Transportation Name, Phone and Availability #1: Marta López Support Support: Pt/Family Updates re:POC or DC Plan Pt discussed with Acute Leuk team during huddle. Pt is d12 of chemotherapy, per team pt could d/c to placement anytime if obtained. Team reports pt will d/c wit h fluc and no additional plans for chemo until pt is stronger. SW met with pt/spouse at bedside to discuss d/c planning. SW explained levels of care and both agreed that SNF felt like the most appropriate level of care. SW discussed SNF options and swing bed. Given potential need for transfusions swing bed may be best able to accommodate, pt/spouse in agreement. Per pt/spouse requ est referrals were sent to the following locations: [facility]- willing to accept [facility] Acute Rehab- willing to accept [facility] Swing Bed- denied recommending acute rehab SW also followed up with Dr. Neri's clinic to confirm follow up appointment. A ppointment details listed below: Dr. Mame Neri [address] [place] [address] p. [phone] f.[phone] Appt: Monday (03/21) at 1400 Appointment details added to pt's AVS for reference. 1445: SW spoke with pt/spouse re: d/c planning. Both in agreement to pursue plac ement at [facility] tomorrow. SW notified Rehab admissions September who reports facility is able to accept pt tomorrow. Facility does not pro vide admission transport. SW Student tasked [employer]OT[employer] CASTER to determine stretcher van costs . Will obtain leadership approval to assist with d/c stretcher transport cost . SW also confirmed with September that facility is able to assist with transfusion needs, will need to include transfusion parameters in d/c orders. SW also inform ed that Dr. Neri can see pt at [facility] while pt is admitted if neces rosie. SW will continue to follow. Info or Referral Positive SDOH Domains and Potential Barriers Medication Needs Medication Needs: Medication Prior-Auth (Posaconazole covered, $5 co pay) Medication: Posaconazole Non Garment Sewing Machine Operator: Ruth Lisbeth Date Initiated: 02/17/23 Insurance Company: [employer] Route Submitted: Cover my meds Financial Legal Legal: DPOA & Advance Directives Other Discharge Disposition Selected Continued Care - Admitted Since 02/13/2023 No services have been selected for the patient. Mara Rojas * Mara Rojas - 02/24/2023 9:42 AM CDT Case Management Progress Note NAME:Braulio López :[birth year] AGE: 82 y.o. ADMISSION DATE: 02/13/2023 DAYS ADMITTED: LOS: 11 days Today's Date: 02/24/2023 PLAN: Anticipate d/c home with family support when medically stable. Expected Discharge Date: 03/09/2023 Is Patient Medically Stable: No, Please explain: awaiting count recovery Are there Barriers to Discharge? no INTERVENTION/DISPOSITION: Discharge Planning Transportation Does the Patient Need Case Management to Arrange Discharge Transport ? (ex: facility, ambulance, wheelchair/stretcher, Medicaid, cab, other): No Will the Patient Use Family Transport?: Yes Transportation Name, Phone and Availability #1: Marta López Support Support: Pt/Family Updates re:POC or DC Plan Pt discussed with Acute Leuk team during huddle. Pt is d8 of chemotherapy, plan to remain inpt through count recovery. PT/OT following, recommending inpt settin g. Pt currently on room air but occasionally requiring O2. SW met with pt/spouse at bedside. Pt tired during conversation and kept nodding off. Pt's reports pt hasn't eaten much today but otherwise doing well. SW o ffered continued support throughout hospital stay. Pt/spouse denied any current needs. SW will continue to follow. Info or Referral Positive SDOH Domains and Potential Barriers Medication Needs Medication Needs: Medication Prior-Auth (Posaconazole covered, $5 co pay) Medication: Posaconazole Non Garment Sewing Machine Operator: Ruth Bob Date Initiated: 02/17/23 Insurance Company: [employer] Route Submitted: Cover my meds Financial Legal Legal: DPOA & Advance Directives Other Discharge Disposition Selected Continued Care - Admitted Since 02/13/2023 No services have been selected for the patient. Mara Rojas * Ruth Bob RN - 02/22/2023 12:31 PM CDT Case Management Progress Note NAME:Braulio López :[birth year] AGE: 82 y.o. ADMISSION DATE: 02/13/2023 DAYS ADMITTED: LOS: 9 days Today's Date: 02/22/2023 PLAN: Patient will discharge with caregiver support when medically ready. Expected Discharge Date: 03/03/2023 Is Patient Medically Stable: No, Please explain: Chemo Are there Barriers to Discharge? no INTERVENTION/DISPOSITION: Discharge Planning Patient discussed in morning huddle. PT/OT has been recommending HH but there may be some discussion about IP rel ated to patient's weakness. Case management will continue to follow for discharge needs. Transportation Does the Patient Need Case Management to Arrange Discharge Transport ? (ex: facility, ambulance, wheelchair/stretcher, Medicaid, cab, other): No Will the Patient Use Family Transport?: Yes Transportation Name, Phone and Availability #1: Marta López Support Support: Pt/Family Updates re:POC or DC Plan Info or Referral Positive SDOH Domains and Potential Barriers Medication Needs Medication Needs: Medication Prior-Auth (Posaconazole covered, $5 co pay) Medication: Posaconazole Non Garment Sewing Machine Operator: Ruth Bob Date Initiated: 02/17/23 Insurance Company: [employer] Route Submitted: Cover my meds Financial Legal Legal: DPOA & Advance Directives Other Discharge Disposition Selected Continued Care - Admitted Since 02/13/2023 No services have been selected for the patient. Ruth Bob RN Voalte * Mara Rojas - 02/20/2023 10:41 AM CDT Case Management Progress Note NAME:Braulio López :[birth year] AGE: 82 y.o. ADMISSION DATE: 02/13/2023 DAYS ADMITTED: LOS: 7 days Today's Date: 02/20/2023 PLAN: Anticipate d/c home with family support when medically stable. Expected Discharge Date: 03/07/2023 Is Patient Medically Stable: No, Please explain: awaiting completion of Vidaza Are there Barriers to Discharge? no INTERVENTION/DISPOSITION: Discharge Planning Transportation Does the Patient Need Case Management to Arrange Discharge Transport ? (ex: facility, ambulance, wheelchair/stretcher, Medicaid, cab, other): No Will the Patient Use Family Transport?: Yes Transportation Name, Phone and Availability #1: Kishore López Support Support: Pt/Family Updates re:POC or DC Plan Pt discussed with Acute Leuk team during huddle. Pt is d4 of chemotherapy, plan to remain inpt through completion of Vidaza. [place]osa copay is $5. SW followed up wi th Dr. Neri's clinic for f/u appointment after d/c. SW informed that referral is being reviewed and they will contact SW to schedule. Dr. Mame Neri [address] [place] [address] p. [phone] f. [phone] Appt: TBD SW will continue to follow up. Info or Referral Positive SDOH Domains and Potential Barriers Medication Needs Medication Needs: Medication Prior-Auth Medication: Posaconazole Non Garment Sewing Machine Operator: Ruth Bob Date Initiated: 02/17/23 Insurance Company: [employer] Route Submitted: Cover my meds Financial Legal Legal: DPOA & Advance Directives Other Discharge Disposition Selected Continued Care - Admitted Since 02/13/2023 No services have been selected for the patient. Mara Rojas * Ruth Bob RN - 02/20/2023 10:25 AM CDT Case Management Progress Note NAME:Braulio López :[birth year] AGE: 82 y.o. ADMISSION DATE: 02/13/2023 DAYS ADMITTED: LOS: 7 days Today's Date: 02/20/2023 PLAN: Patient will discharge home with caregiver support when medically ready. Expected Discharge Date: 03/07/2023 Is Patient Medically Stable: No, Please explain: chemo Are there Barriers to Discharge? no INTERVENTION/DISPOSITION: Discharge Planning *PT/OT recommending home with home health. *C1D4 Vidaza. *Patient has roller walker Transportation Does the Patient Need Case Management to Arrange Discharge Transport ? (ex: facility, ambulance, wheelchair/stretcher, Medicaid, cab, other): No Will the Patient Use Family Transport?: Yes Transportation Name, Phone and Availability #1: Marta López Support Support: Huddle/team update (Discussed patient in huddle today. Constance ent is C1D4 Vidaza. Local hospital [facility] is 10 minutes from patient's home and they can provide labs and transfusions as necessary.) Info or Referral Positive SDOH Domains and Potential Barriers Medication Needs Medication Needs: Medication Prior-Auth Medication: Posaconazole Non Garment Sewing Machine Operator: Ruth Bob Date Initiated: 02/17/23 Insurance Company: [employer] Route Submitted: Cover my meds Financial Legal Legal: DPOA & Advance Directives Other Discharge Disposition Selected Continued Care - Admitted Since 02/13/2023 No services have been selected for the patient. Ruth Bob RN Voalte * Mara Rojas - 02/17/2023 12:55 PM CDT Case Management Progress Note NAME:Braulio López :[birth year] AGE: 82 y.o. ADMISSION DATE: 02/13/2023 DAYS ADMITTED: LOS: 4 days Today's Date: 02/17/2023 PLAN: Anticipate d/c home with family support when medically stable. Expected Discharge Date: 02/22/2023 Is Patient Medically Stable: No, Please explain: awaiting count recovery Are there Barriers to Discharge? no INTERVENTION/DISPOSITION: Discharge Planning Transportation Does the Patient Need Case Management to Arrange Discharge Transport ? (ex: facility, ambulance, wheelchair/stretcher, Medicaid, cab, other): No Will the Patient Use Family Transport?: Yes Transportation Name, Phone and Availability #1: Marta López [phone] Support Support: Pt/Family Updates re:POC or DC Plan Pt discussed with Acute Leuk team during huddle. SW met with pt at bedside with team during rounds. Dr. Stevens discussed results of stress test and treatment opti ons moving forward. Pt willing to give chemo a try, plan to start today. Pt hope ful to be able to spend as much time as home as possible. Education provided lupe t pt would be inpt at least 7 days for Vidaza then potentially d/c home. Dr. Rios camarillo requesting follow up appointment scheduled with Dr. Neri in two weeks. Pt ag reeable with this. SW reached out to Dr. Neri's clinic to request appointment, information sent. Dr. Mame Neri [address] [place] [address] p. [phone] f. [phone] Appt: TBD Info or Referral Positive SDOH Domains and Potential Barriers Medication Needs Medication Needs: Medication Prior-Auth Medication: Posaconazole Non Garment Sewing Machine Operator: Ruth Bob Date Initiated: 02/17/23 Insurance Company: [employer] Route Submitted: Cover my meds Financial Legal Legal: DPOA & Advance Directives SW also discussed DPOA-HC paperwork. Pt agreeable with completing. SW explained document. Pt A&Ox4 at time of completion. Pt elected spouse, Marta López ([phone]), as primary agent. Pt elected son, Tim López ([phone]), as secondary agent. SW notorized pt's signature and scanned copy to document management to be added to pt's EMR. SW returned original and additional copies to pt's bedside. Pt/spouse denied any additional needs at this time. SW will continue to follow. Other Discharge Disposition Selected Continued Care - Admitted Since 02/13/2023 No services have been selected for the patient. Mara Rojas * Ruth Bob, RN - 02/17/2023 11:53 AM CDT Case Management Progress Note NAME:Braulio López :[birth year] AGE: 82 y.o. ADMISSION DATE: 02/13/2023 DAYS ADMITTED: LOS: 4 days Today's Date: 02/17/2023 PLAN: Patient will discharge home with caregiver support when medically ready Expected Discharge Date: 02/22/2023 Is Patient Medically Stable: No, Please explain: Chemo Are there Barriers to Discharge? no INTERVENTION/DISPOSITION: Discharge Planning *PT/OT recommending home with home health. *Patient starting a 7 day regimen of azacitidine Transportation Does the Patient Need Case Management to Arrange Discharge Transport ? (ex: facility, ambulance, wheelchair/stretcher, Medicaid, cab, other): No Will the Patient Use Family Transport?: Yes Transportation Name, Phone and Availability #1: Marta López Support Support: Huddle/team update Info or Referral Positive SDOH Domains and Potential Barriers Medication Needs Medication Needs: Medication Prior-Auth Medication: Posaconazole Non Garment Sewing Machine Operator: Ruth Bob Date Initiated: 02/17/23 Insurance Company: [employer] Route Submitted: Cover my meds [place] was approved Financial Legal Other Discharge Disposition Selected Continued Care - Admitted Since 02/13/2023 No services have been selected for the patient. Ruth Bob RN Voalte * Ruth Bob RN - 02/16/2023 2:14 PM CDT Case Management Progress Note NAME:Braulio López :[birth year] AGE: 82 y.o. ADMISSION DATE: 02/13/2023 DAYS ADMITTED: LOS: 3 days Today's Date: 02/16/2023 PLAN: Patient will discharge home with caregiver support when medically ready. Expected Discharge Date: 02/22/2023 Is Patient Medically Stable: No, Please explain: Continued testing Are there Barriers to Discharge? no INTERVENTION/DISPOSITION: Discharge Planning Transportation Does the Patient Need Case Management to Arrange Discharge Transport ? (ex: facility, ambulance, wheelchair/stretcher, Medicaid, cab, other): No Will the Patient Use Family Transport?: Yes Transportation Name, Phone and Availability #1: Marta López [phone] Support Support: Huddle/team update (Patient discussed in huddle. Awaiting f urther testing to determine treatment plan. Will update discharge planning accor taurus.) Info or Referral Positive SDOH Domains and Potential Barriers Medication Needs Financial Legal Other Discharge Disposition Selected Continued Care - Admitted Since 02/13/2023 No services have been selected for the patient. Ruth Bob RN Voalte * Mara Rojas - 02/15/2023 9:08 AM CDT Case Management Progress Note NAME:Braulio López :[birth year] AGE: 82 y.o. ADMISSION DATE: 02/13/2023 DAYS ADMITTED: LOS: 2 days Today's Date: 02/15/2023 PLAN: Anticipate d/c home with family support when medically stable. Expected Discharge Date: 02/22/2023 Is Patient Medically Stable: No, Please explain: awaiting treatment plan Are there Barriers to Discharge? no INTERVENTION/DISPOSITION: Discharge Planning Transportation Does the Patient Need Case Management to Arrange Discharge Transport ? (ex: facility, ambulance, wheelchair/stretcher, Medicaid, cab, other): No Will the Patient Use Family Transport?: Yes Transportation Name, Phone and Availability #1: Kishore López Support Support: Pt/Family Updates re:POC or DC Plan Pt discussed with Acute Leuk team during huddle. Per team, awaiting further test ing to guide treatment planning. SW met with pt at bedside to introduce self. SW also had been notified that pt was wanting to talk with SW. Pt was unsure of any needs at this time. SW encouraged pt to notify bedside RN if pt or spouse have any questions or needs. SW will continue to follow up. Info or Referral Positive SDOH Domains and Potential Barriers Medication Needs Financial Legal Other Discharge Disposition Selected Continued Care - Admitted Since 02/13/2023 No services have been selected for the patient. Mara Rojas * Ruth Bob, RN - 02/14/2023 1:57 PM CDT Case Management Admission Assessment NAME:Braulio López :1939 AGE: 82 y.o. ADMISSION DATE: 02/13/2023 DAYS ADMITTED: LOS: 1 day Todays Date: 02/14/2023 Source of Information: Patient will discharge with caregiver support when medica lly ready Plan Plan: Case Management Assessment This CM met with pt for assessment on this date. Provided contact information a nd explanation of SW/NCM roles. Reviewed [facility], Preparing for Disc harge, and Preferred Provider Network hand-outs. Provided opportunity for quest ions and discussion. Pt/family encouraged to contact Case Management team with q uestions and concerns during hospitalization and until patient is able to transi tion back to the patient's primary care physician. *PCP is Dr Bri Shetty [phone] *Transportation home will be provided by kishore Lozano [phone] *Needs assistance with bathing, meal prep and navigating stairs *Patient has a roller walker *No medication affordability issues at this time *Case management will continue to follow for discharge needs Patient Address/Phone [address] [facility] [phone] (home) Emergency Contact Extended Emergency Contact Information Primary Emergency Contact: Marta López Mobile Relation: Spouse Maintenance Mechanic Supervisor needed? No Healthcare Directive Healthcare Directive: No, patient does not have a healthcare directive Would patient like to fill out a (a new) Healthcare Directive?: Yes, referral to Social Work Psych Advance Directive (Psych unit only): No, patient does not have a Psych Adv ance Directive Transportation Does the Patient Need Case Management to Arrange Discharge Transport? (ex: facil ity, ambulance, wheelchair/stretcher, Medicaid, cab, other): No Will the Patient Use Family Transport?: Yes Transportation Name, Phone and Availability #1: Kishore López [phone] Expected Discharge Date 02/22/2023 Living Situation Prior to Admission Living Arrangements Type of Residence: Home, independent Living Arrangements: Spouse/significant other Bathroom Shower / Tub: Tub/Shower Unit (shower chair) How many levels in the residence?: 2 (7 bev, 16 to the second floor) Can patient live on one level if needed?: No (He mostly stays on the main floor but the tub/shower is on the 2nd level) Does residence have entry and/or inside stairs?: Yes (7 bev, 16 steps to the 2nd floor) Assistance needed prior to admit or anticipated on discharge: Yes Who provides assistance or could if needed?: Kishore Lozano Are they in good health?: Yes (She is in good health but is in her 80s) Can support system provide 24/7 care if needed?: Maybe Level of Function Prior level of function: Needs assist with ADLs Which ADLs require assistance?: bathing, meal prep, navigating stairs Who assists with ADLs?: Kishore Lozano Cognitive Abilities Cognitive Abilities: Alert and Oriented Financial Resources Coverage Primary Insurance: Medicare (Part A & B) Secondary Insurance: Medicare Supplement (BCBS) Additional Coverage: RX (BCBS covers medications, no medication affordability co ncerns at this time) Source of Income Source Of Income: Other halfway income Financial Assistance Needed? No Psychosocial Needs Mental Health Mental Health History: No Substance Use History Substance Use History Screen: No Other No Current/Previous Services PCP Bri Shetty, , Pharmacy No Pharmacies Listed Durable Medical Equipment Durable Medical Equipment at home: Roller Walker, Shower Chair, Single Point Can e Home Health Receiving home health: In the past (In 2007 after triple bypass surgery) Agency name: Unable to remember Hemodialysis or Peritoneal Dialysis Undergoing hemodialysis or peritoneal dialysis: No Tube/Enteral Feeds Receive tube/enteral feeds: No Infusion Receive infusions: No Private Duty Private duty help used: No Home and Community Based Services Home and community based services: No Alfa White Alfa White: N/A Hospice Hospice: No Outpatient Therapy PT: Yes When did patient receive care?: Several different times Name of rehab location/group: [facility] Would patient return for future services?: Yes OT: No ROD STRAIGHTENER: No Assisted Facility/Care Home SNF: No NH: No Inpatient Rehab IPR: No Long-Term Acute [facility] Hospital LTACH: No Acute Hospital Stay Acute Hospital Stay: No HENRY Eubanks, RN Nurse Pc Analyst Available by [facility] documented in this encounter Discharge Instructions * Instructions* Mara Rojas - 02/28/2023 12:[address] Mame Neri [address] [place] [address] p. [phone] Appt: Monday (03/21) at 1400 documented in this encounter Medications at Time of Discharge [...] Take one 0 capsule by mouth daily. documented as of this encounter Ordered Prescriptions Start Date End Date Prescription Sig Dispensed Refills 03/01/2023 levoFLOXacin (LEVAQUIN) Take one 30 tablet 0 750 mg tablet tablet by mouth daily. 03/01/2023 acyclovir (ZOVIRAX) 800 Take one 60 tablet 3 mg tablet tablet by mouth twice daily. 03/01/2023 fluconazole (DIFLUCAN) Take two 0 200 mg tablet tablets by mouth daily. 03/01/2023 polyethylene glycol 3350 Take one 12 packet 0 (MIRALAX) 17 g packet packet by mouth twice daily. 03/01/2023 metoprolol tartrate 37.5 Take one 60 tablet 3 mg tablet tablet by mouth twice daily. 03/01/2023 aspirin 81 mg chewable Chew one 90 tablet 0 tablet tablet by mouth daily. ON HOLD 03/01/2023 apixaban (ELIQUIS) 5 mg Take one 180 tablet 0 tablet tablet by mouth twice daily. ON HOLD 02/17/2023 02/28/2023 posaconazole EC (NOXAFIL) Take three 90 tablet 3 100 mg tablet tablets by mouth daily with breakfast. Take with food. documented in this encounter Discharge Disposition Code Departure Means Destination Disposition Ambulance Rehab Facility (Not [facility]) documented in this encounter Progress Notes * Radha Bunn RN - 03/01/2023 11:29 AM CDT Report called to HALEY Pineda ([phone]) at [facility]. Discussed all discharg e orders and answered all questions. Phone number provided in case of any furthe r needs. Patient is ready for discharge at this time. Currently awaiting transpo rt arrival. RN discussed discharge instructions and discharge medications with patient and p julissa's who both state understanding. Patient's states understanding on how to get in touch with Oncology provider who will be taking over care in [place], [place]. Picc dressing clean, dry, and intact. Flushed and green caps in maribel ce. Interdry in place in patient's groin and rehab facility states that they hav e interdry at their facility to place in groin area. 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 CGs with -7 PCR: p53 neg, FLT3 neg NGS: pending Referring physician: [facility] Chemotherapy plan: Azacitidine, C1D1 02/17/23 Azacitidine C1D13 S/p hydrea Patient wishes to pursue a trial at chemotherapy, is agreeable to start here but hopes to transition his care to Dr. Mame Neri in [place], [place] as soon as he can be stable to discharge. Reviewed with patient he would need to be more mobile and able to get back and f orth to clinic before further chemotherapy should be considered. Heme: Monitor CBC for transfusion needs, goal Hgb>8 and platelets >10K Transfusion 03/01/23: None DVT prophylaxis with lovenox unless platelets <50K or signs of DIC Hold LEAD SLOT TECHNICIAN Eliquis 5mg Po BID with thrombocytopenia Hold LEAD SLOT TECHNICIAN ASA 81mg with thrombocytopenia RUE edema and discomfort. US negative INR elevated. Improved s/p vitamin K FEN/Renal: LIANNA: improved, cr cl 03/01/23 75 (69) - Potentially due to hypotensive episode: Hypotensive on 02/17pm in setting of fe pat. - Improved with abx and IVF Hyponatremia: monitor Hypophos: replace prn TLS and uric acid monitoring Replace electrolytes per HIGH protocol per cardiology D/c allopurinol Immunocompromised diet Poor po intake but improving. Boost shake supplements. Nutrition consulted. Kourtney kyle closely for need for enteral nutrition Lasix 40mg IV x 2 doses, last 02/24. Hold 02/25 d/t mild LIANNA. 20mg IV 02/27 & 02/28 ID: Neutropenic fever, no clear source - Fever on 02/17 - Completed 7 days cefepime . 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 Increased to 37.5mg BID - Chest pain with exertion with PT: EKG normal, trop normal - proBNP 1459 - Reg stress test: completed 02/16 and low risk for inducible myocardial ischemia - carotid duplex: mild bilateral carotid plaques - Holding LEAD SLOT TECHNICIAN aspirin and Eliquis - Hold LEAD SLOT TECHNICIAN losartan 100mg and chlorthalidone 25mg. Hold LEAD SLOT TECHNICIAN repatha GI: GERD: cont LEAD SLOT TECHNICIAN PPI Hyperbilirubinemia: Bili 03/01/23 1.4, stable Constipation: Increase miralax dose. Gave dose of lactulose. Resolved Ophtho: left eye periorbital redness, rubbing his eye 02/26: add artificial tears. Resolved 02/27 : BPH: Continue dutasteride & Tamsulosin (formulary sub for them to be separate drugs) Continue LEAD SLOT TECHNICIAN oxybutynin Pulm: ODETTE: on CPAP at night Hypoxia: New onset 02/23 am, CXR stable. O2 requirement 03/01/23 RA See FEN for diuresis Endo: Diabetes Mellitus - d/c FSBS and insulin 02/16 - Hold oral hypoglycemics. Holding januvia and plan to d/c at discharge - Hgb A1c 5, so with weight loss LEAD SLOT TECHNICIAN likely no longer needs therapy at this time MSK: Low back pain: sacral nerve stimulator in place up until October 2022 when had 3rd b ack surgery, during which time was removed Derm: Unstageable sacral wound, wound care rec A & D Abrasion Left first castro, monitor Psych: Monitor and offer support as needed. Code status: DNAR-Full Intervention (last reviewed 02/16). Out of hospital DNAR s igned 9.6 prior to discharge Dispo: [facility] in [place], [place] 03/0103/21/23 Dr. Neri visit at 14:00, request inpatient rehab consult Dr. Neri to be seen there as well. Total floor unit time 45 minutes performing discharge service. Direct communicat ion with Dr. Neri on 03/01/23 Britt Stevens MD Hematologic Malignancies and Cellular Therapeutics Available by [employer] and [employer] After hours coverage first call via Cooperative Education Coordinator 8pm to 8am: pager [phone] | [employer] "Med Private " Subjective: Braulio López is a 82 y.o. male. Patient laying in bed. at be dside. States he has no new symptoms, continuing to meet his nutrition goals. No new pain other than chronic back pain Objective: Medications: Scheduled Meds:artificial tears (PF) single dose ophthalmic solution 1 drop, 1 d rop, Both Eyes, BID dutasteride (AVODART) capsule 0.5 mg, 0.5 mg, Oral, QDAY w/dinner And tamsulosin (FLOMAX) capsule 0.4 mg, 0.4 mg, Oral, QDAY w/dinner metoprolol tartrate tablet 37.5 mg, 37.5 mg, Oral, BID oxybutynin XL (DITROPAN XL) tablet 15 mg, 15 mg, Oral, QDAY pantoprazole DR (PROTONIX) tablet 40 mg, 40 mg, Oral, QDAY(21) polyethylene glycol 3350 (MIRALAX) packet 17 g, 1 packet, Oral, BID sodium chloride PF 0.9% flush 10-20 mL, 10-20 mL, Flush, FLUSH Daily Continuous Infusions: PRN and Respiratory Meds:acetaminophen Q6H PRN, magnesium sulfate 4 g/50 mL PRN, melatonin QHS PRN, potassium chloride in water PRN (Duplicating Machine Operator from Rx) OR pot assium chloride SR PRN (Duplicating Machine Operator from Rx), sodium chloride 0.9 % TKO infusion PRN , sodium chloride irrigation PRN Vital Signs: Last Filed Vital Signs: 24 Hour Ra nge BP: 115/51 (03/01 415) Temp: 36.7 C (98.1 F) (03/01 415) Pulse: 74 (03/01 415) Respirations: 16 PER MINUTE (03/01 415) SpO2: 93 % (03/01 415) O2 Device: None (Room air) (03/01 415) O2 Liter Flow: 1 Lpm (02/28 739) SpO2 Pulse: 76 (03/01 415) BP: (112-150)/(47-69) Temp: [36.3 C (97.4 F)-36.7 C (98.1 F)] Pulse: [71-84] Respirations: [16 PER MINUTE-20 PER MINUTE] SpO2: [93 %-97 %] O2 Device: None (Room air) O2 Liter Flow: 1 Lpm Intensity Pain Scale (Self Report): 4 Intensity Pain Scale (Self Report): 5 Vitals: 02/23/23 1239 02/27/23200002/28/23 1700 Weight: 97.1 kg (214 lb) 99.5 kg (219 lb 5.7 oz) 100.3 kg (221 lb 1.9 oz) Intake/Output Summary: (Last 24 hours) Intake/Output Summary (Last 24 hours) at 03/01/2023 0702 Last data filed at 03/01/2023 0416 Gross per 24 hour Intake 1375 ml Output 1725 ml Net -350 ml Physical Exam: ECOG performance status is 4, Completely disabled. Cannot carry on any selfcare. Totally confined to bed or chair Vital signs and nursing notes reviewed General: Alert, oriented, no distress. Eyes: conjunctiva clear, pupils equal ENT: mucous membranes moist, no mucositis noted. Dentures in place CV: irregular rhythm, no murmur, 1+ LE edema Pulm: no accessory muscle use, clear bilaterally, RA Abd: Soft, Nontender, obese. Ext: No joint deformities, normal range of motion. No ttp posterior calf, swelli ng slight but equal bilaterally without erythema Derm: no rashes, petechiae Psych: No anxiety noted Lab Review: CBC w diff Lab Results Component Value Date/Time WBC 10.2 03/01/2023 04:17 AM RBC 2.58 (L) 03/01/2023 04:17 AM HGB 8.4 (L) 03/01/2023 04:17 AM HCT 24.8 (L) 03/01/2023 04:17 AM MCV 96.1 03/01/2023 04:17 AM MCH 32.7 03/01/2023 04:17 AM MCHC 34.0 03/01/2023 04:17 AM RDW 17.4 (H) 03/01/2023 04:17 AM PLTCT 21 (LL) 03/01/2023 04:17 AM MPV 8.3 03/01/2023 04:17 AM Lab Results Component Value Date/Time ANC 1.22 (L) 03/01/2023 04:17 AM Comprehensive Metabolic Profile Lab Results Component Value Date/Time NA 140 03/01/2023 04:17 AM K 3.8 03/01/2023 04:17 AM CL 104 03/01/2023 04:17 AM CO2 28 03/01/2023 04:17 AM GAP 8 03/01/2023 04:17 AM BUN 20 03/01/2023 04:17 AM CR 0.93 03/01/2023 04:17 AM GLU 117 (H) 03/01/2023 04:17 AM Lab Results Component Value Date/Time CA 8.7 03/01/2023 04:17 AM PO4 3.5 03/01/2023 04:17 AM ALBUMIN 2.9 (L) 03/01/2023 04:17 AM TOTPROT 5.5 (L) 03/01/2023 04:17 AM ALKPHOS 82 03/01/2023 04:17 AM AST 34 03/01/2023 04:17 AM ALT 27 03/01/2023 04:17 AM TOTBILI 1.4 (H) 03/01/2023 04:17 AM Radiology Review: Pertinent radiology reviewed and discussed in assessment and plan. Britt Stevens MD * Anahi Gill, OT - 02/28/2023 2:03 PM CDT OCCUPATIONAL THERAPY PROGRESS NOTE Name: Braulio López : 1940 Age: 82 y.o. Admission Date: 02/13/2023 LOS: 15 days Date of Service: 02/28/2023 Mobility Patient Turn/Position: Weight shifted (Chair) Progressive Mobility Level: Active transfer to chair Level of Assistance: Assist X2 Assistive Device: Hand Held (teodoro stedy; luzmaria sling under pt for return to bed) Activity Limited By: Weakness;Fatigue Subjective Pertinent Dx per Physician: PMH: hypertension, hyperlipidemia, ODETTE on CPAP DM, chronic back pain with sacral stimulator PAF, GERD, BPH- admit from OSH due to concern for new acute leukemia diagnosis Precautions: Standard;Falls Pain / Complaints: Patient agrees to participate in therapy Comments: Pt in bedside chair at arrival and exit. Luzmaria sling under pt for retu rn to bed with chief of staff Objective Psychosocial Status: Willing and Cooperative to Participate Persons Present: RehabTechnician Home Living Type of Home: House Home Layout: Able to Live on Main Level w/Bedrm/Bathrm Access Bathroom Shower / Tub: Tub/Shower Unit Home Equipment: Cane Comment: pt has been sleeping in lift chair downstairs and going upstairs 1x/wee k for shower due to fatigue and difficulty navigating stairs Prior Function Level Of Weber: Independent with ADLs and functional transfers Lives With: Spouse Other Function Comments: spouse assists with IADL and provides supervision to in termittent assist with ADL as needed ADL's Where Assessed: Standing at Sink (bedside commode) Grooming Assist: Moderate Assist Grooming Deficits: Setup;Steadying;Standing With Assistive Device;Wash/Dry Face Toileting Assist: Total Assist Toileting Deficits: Steadying;Perineal Hygiene (external male catheter) Comment: Pt washed face while standing with teodoro stedy and minimal to moderate a ssist x2 for standing balance at the sink. Increased verbal cues to tuck buttock s and straighten spine. Pt stood in front of bedside commode moderate to maximal assist for standing support and total assist for pericare after BM. ADL Mobility Transfer Type: Sit to/from stand Transfer: Assistance Level: To/from;Bedside chair;Commode;Moderate assist;x2 peo ple;Verbal cues Transfer: Assistive Device: Hand hold assist (teodoro stedy) Transfer: Type of Assistance: For balance;For safety considerations;For strength deficit;Knee(s) blocked;Verbal cues Other Transfer Type: Stand pivot (stand and step) Other Transfer: Assistance Level: To/from;Bedside chair;Commode;Moderate assist; x2 people;Verbal cues Other Transfer: Assistive Device: Hand hold assist Other Transfer: Type of Assistance: For balance;For safety considerations;For st rength deficit;Verbal cues;Requires extra time End of Activity Status: Up in chair;Instructed patient to use call light;Instruc merline patient to request assist with mobility (needs in reach, chair alarm on, hoy er sling under pt for return to bed with chief of staff) Transfer Comments: Verbal cues to rock for momentum with sit to stand transfers as well as for guiding hips to transfer surface. Sitting Balance: Standby assist Standing Balance: Moderate assist;x2 people (instance of maximum x1 during peric are infront of bedside commode) Activity Tolerance Endurance: 3/5 Tolerates 25-30 Minutes Exercise w/Multiple Rests Cognition Overall Cognitive Status: WFL to Adequately Complete Self Care Tasks Safely UE Strength / Tone Strength Comments: proximal muscle weakness Education Persons Educated: Patient Interventions: Repetition of Instructions Teaching Methods: Verbal Instruction Patient Response: Verbalized Understanding Topics: Role of OT, Goals for Therapy (transfer education) Goal Formulation: With Patient Assessment Assessment: Decreased ADL Status;Decreased Endurance;Decreased Self-Care Trans;N on-Functional R UE Prognosis: Good;w/Cont OT s/p Acute Discharge Goal Formulation: Patient Comments: Pt limited by generalized and proximal muscle weakness and decreased a ctivity tolerance impacting performance with ADLs and functional mobility. Pt re quires assist x2 for all transfers at this time and assist for ADLs. Pt continue s to benefit from skilled OT to progress independence. This patient has been identified to have (mild or severe) proximal muscle weakne ss. This patient is at higher risk for falls and increased safety measures butch uld be implemented for mobility. AM-PAC 6 Clicks Daily Activity Inpatient Putting on and taking off regular lower body clothes: Total Bathing (Including washing, rinsing, drying): A Lot Toileting, which includes using toilet, bedpan, or urinal: Total Putting on and taking off regular upper body clothing: A Little Taking care of personal grooming such as brushing teeth: A Lot Eating meals: None Daily Activity Raw Score: 13 Standardized (T-scale) Score: 32.03 Plan Progress: Slow Progress, Decreased Activity Tolerance OT Frequency: 5x/week OT Plan for Next Visit: pivot transfers w RW, standing tolerance/posture, proxim al strengthening. ADL Goals Patient Will Perform All ADL's: w/ Stand By Assist Functional Transfer Goals Pt Will Perform All Functional Transfers: w/ Stand By Assist OT Discharge Recommendations Recommendation: Inpatient setting Patient Currently Requires Physical Assist With: All mobility;All personal care ADLs;All home functioning ADLs Therapist: Anahi Gill OTR/L [id number] Date: 02/28/2023 * Suraj Dhaliwal, PT - 02/28/2023 11:30 AM CDT PHYSICAL THERAPY PROGRESS NOTE Name: Braulio López : 1940 Age: 82 y.o. Admission Date: 02/13/2023 LOS: 15 days Date of Service: 02/28/2023 Mobility Patient Turn/Position: Chair Progressive Mobility Level: Active transfer to chair Level of Assistance: Assist X2 Assistive Device: Hand Held Activity Limited By: Fatigue;Weakness Subjective Significant hospital events: 82 y.o. male with past medical history hypertension , hyperlipidemia, ODETTE on CPAP DM, chronic back pain with sacral stimulator PAF , GERD, BPH presents from OSH due to concern for new acute leukemia diagnosis Mental / Cognitive Status: Alert;Oriented;Cooperative;Follows Commands Persons Present: RehabTechnician;Spouse;Nursing Staff Pain: Patient does not rate pain Pain Interventions: Patient agrees to participate in therapy Comments: Pt less lethargic this session and more tolerant of therapy Ambulation Assist: Independent Mobility in Community with Device;Independent Mob ility in Community with Endurance Limitations Patient Owned Equipment: Single Point Cane;4-Wheeled Walker;Lift Chair Home Situation: Lives with Family;Receives Assistance from Family () Type of Home: House Entry Stairs: No Stairs In-Home Stairs: 1-2 Flights of Stairs;Able to Live on One Level Comments: Spouse completes all IADLs, and intermittently assists with IADLs such as being standby during showers, but patient reports typically able to dress se lf. Has become more difficult lately. Patient sleeps on main level in his lift c hair, and negotiates upstairs to bathroom 1x/wk for shower. Patient reports this has been the case for several months as he has been too fatigued to climb the s tairs. Bed Mobility/Transfer Comments: Up in chair upon arrival Transfer Type: Sit to/from Stand Transfer: Assistance Level: To/From;Bed;Commode;Moderate Assist;x2 People Transfer: Assistive Device: Hand Hold Assist Transfers: Type Of Assistance: Verbal Cues;For Balance;For Strength Deficit;For Safety Considerations Other Transfer Type: Stand Pivot Other Transfer: Assistance Level: Bed Side Chair;To/From;Commode;Moderate Assist ;x2 People Other Transfer: Assistive Device: Hand Hold Assist Other Transfer: Type Of Assistance: Verbal Cues;For Strength Deficit;For Safety Considerations End Of Activity Status: Up in Chair;Nursing Notified;Instructed Patient to Reque st Assist with Mobility;Instructed Patient to Use Call Light (Chair alarm activa merline) Balance Standing Balance: Static Standing Balance;2 UE support;Moderate Assist;x2 People (Pt tolerated standing with mod A x2 hand held assist for up to 60 seconds) Activity/Exercise Ztm-os-Kswlp [place]: Yes Counterweight: 40 lbs Repetitions: 8 Sets: 1 Comments: Cues for upright posture and cervical extension in standing position Education Persons Educated: Patient Patient Barriers To Learning: None Noted Interventions: Repetition of Instructions Teaching Methods: Verbal Instruction Patient Response: Verbalized Understanding Topics: Plan/Goals of PT Interventions;Mobility Progression;Importance of Increa sing Activity;Recommend Continued Therapy;Safety Awareness Assessment/Progress Impaired Mobility Due To: Deconditioning;Medical Status Limitation;Decreased Act ivity Tolerance;Decreased Strength;Impaired Balance Impaired Strength Due To: Medical Status Limitation;Decreased Activity Tolerance ;Deconditioning Assessment/Progress: Progressing Toward Goals AM-[facility] 6 Clicks Basic Mobility Inpatient Turning from your back to your side while in a flat bed without using bed rails: A lot Moving from lying on your back to sitting on the side of a flat bed without usin g bedrails : A Lot Moving to and from a bed to a chair (including a wheelchair): A Lot Standing up from a chair using your arms (e.g. wheelchair, or bedside chair): A Lot To walk in hospital room: A Lot Climbing 3-5 steps with a railing: Total Basic Mobility Inpatient Raw Score: 11 Standardized (T-scale) Score: 30.25 AM-[facility] Basic Mobility Functional Stage: 34-51 Limited Mobility Indoors Goals Goal Formulation: With Patient Time For Goal Achievement: 7 days Patient Will Go Supine To/From Sit: Independently, Ongoing Patient Will Transfer Bed/Chair: Independently, Ongoing Patient Will Transfer Sit to Stand: w/ Stand By Assist, Met Patient Will Ambulate: Greater than 200 Feet, w/ Walker, w/ Stand By Assist, Joellen oing Patient Will Go Up / Down Stairs: 1-2 Flights, w/ Stand By Assist, Ongoing Plan Treatment Interventions: Mobility Training;Strengthening;Balance Activities;Endu bhavesh Training Plan Frequency: 5 Days per Week PT Plan for Next Visit: continue neurogym; gait if appropriate; progress stand p ivot transfers and quality of mobility PT Discharge Recommendations Recommendation: Inpatient setting (Anticipate d/c home but starting to have func itonal decline; will update recs as appropriate.) Recommendation for Therapy Post Discharge: Home health Patient Currently Requires Equipment: Owns what is needed Therapist: Suraj Dhaliwal, PT Date: 02/28/2023 * Sarah Peraza RN - 02/28/2023 7:08 AM CDT I have reviewed the notes, assessments, and/or procedures performed by Laura lind RN, and concur with her/his documentation unless otherwise noted. 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 CGs with -7 PCR: p53 neg, FLT3 neg NGS: pending Referring physician: Via [facility] Chemotherapy plan: Azacitidine, C1D1 02/17/23 Azacitidine C1D12 S/p hydrea Patient wishes to pursue a trial at chemotherapy, is agreeable to start here but hopes to transition his care to Dr. Mame Neri in [place], [place] as soon as he can be stable to discharge. Heme: Monitor CBC for transfusion needs, goal Hgb>8 and platelets >10K Transfusion 02/28/23: None DVT prophylaxis with lovenox unless platelets <50K or signs of DIC Hold LEAD SLOT TECHNICIAN Eliquis 5mg Po BID with thrombocytopenia Hold LEAD SLOT TECHNICIAN ASA 81mg with thrombocytopenia RUE edema and discomfort. US negative INR elevated. Improved s/p vitamin K FEN/Renal: LIANNA: improved, cr cl 02/28/23 69.6 (78) - Potentially due to hypotensive episode: Hypotensive on 825pm in setting of fe pat. - Improved with abx and IVF Hyponatremia: monitor Hypophos: replace prn TLS and uric acid monitoring Replace electrolytes per HIGH protocol per cardiology D/c allopurinol Immunocompromised diet Poor po intake but improving. Boost shake supplements. Nutrition consulted. Kourtney tor closely for need for enteral nutrition Lasix 40mg IV x 2 doses, last 02/24. Hold 02/25 d/t mild LIANNA. 20mg IV 02/27 & 02/28 ID: Neutropenic fever, no clear source - Fever on 02/17 - Completed 7 days cefepime . 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 Increased to 37.5mg BID - Chest pain with exertion with PT: EKG normal, trop normal - proBNP 1459 - Reg stress test: completed 02/16 and low risk for inducible myocardial ischemia - carotid duplex: mild bilateral carotid plaques - Holding LEAD SLOT TECHNICIAN aspirin and Eliquis - Hold LEAD SLOT TECHNICIAN losartan 100mg and chlorthalidone 25mg. Hold LEAD SLOT TECHNICIAN repatha GI: GERD: cont LEAD SLOT TECHNICIAN PPI Hyperbilirubinemia: Bili 02/28/23 1.4, stable Constipation: Increase miralax dose. Gave dose of lactulose. Resolved Ophtho: left eye periorbital redness, rubbing his eye 02/26: add artificial tears. Resolved 02/27 : BPH: Continue dutasteride & Tamsulosin (formulary sub for them to be separate drugs) Continue LEAD SLOT TECHNICIAN oxybutynin Pulm: ODETTE: on CPAP at night Hypoxia: New onset 02/23 am, CXR stable. O2 requirement 02/28/23 1L See FEN for diuresis Endo: Diabetes Mellitus - d/c FSBS and insulin 02/16 - Hold oral hypoglycemics. Holding januvia and plan to d/c at discharge - Hgb A1c 5, so with weight loss LEAD SLOT TECHNICIAN likely no longer needs therapy at this time MSK: Low back pain: sacral nerve stimulator in place up until October 2022 when had 3rd b ack surgery, during which time was removed Derm: Unstageable sacral wound, wound care rec A & D Abrasion Left first castro, monitor Psych: Monitor and offer support as needed. Code status: DNAR-Full Intervention (last reviewed 02/16) Dispo: likely to need SNF, would like more mobility improvement before considera tion of further chemotherapy. would like to consider SNF in [facility] e[facility] and then contingency placement if hospice needed as states not able to c are for him at home 03/21/23 Dr. Neri visit at 14:00 Britt Stevens MD Hematologic Malignancies and Cellular Therapeutics Available by Voalte and AMS Connect After hours coverage first call via Cooperative Education Coordinator 8pm to 8am: pager [phone] | Voalte "Med Private 6" Subjective: Braulio López is a 82 y.o. male. Patient states feeling a little b mauricio today, ate a pancake this morning and one protein shake so far. States has pain with movement, required luzmaria to get in chair this morning, sat up in chair x 6 hrs yesterday Objective: Medications: Scheduled Meds:artificial tears (PF) single dose ophthalmic solution 1 drop, 1 d rop, Both Eyes, BID dutasteride (AVODART) capsule 0.5 mg, 0.5 mg, Oral, QDAY w/dinner And tamsulosin (FLOMAX) capsule 0.4 mg, 0.4 mg, Oral, QDAY w/dinner metoprolol tartrate tablet 37.5 mg, 37.5 mg, Oral, BID oxybutynin XL (DITROPAN XL) tablet 15 mg, 15 mg, Oral, QDAY pantoprazole DR (PROTONIX) tablet 40 mg, 40 mg, Oral, QDAY(21) polyethylene glycol 3350 (MIRALAX) packet 17 g, 1 packet, Oral, BID sodium chloride PF 0.9% flush 10-20 mL, 10-20 mL, Flush, FLUSH Daily Continuous Infusions: PRN and Respiratory Meds:acetaminophen Q6H PRN, magnesium sulfate 4 g/50 mL PRN, melatonin QHS PRN, potassium chloride in water PRN (Duplicating Machine Operator from Rx) OR pot assium chloride SR PRN (Duplicating Machine Operator from Rx), sodium chloride 0.9 % TKO infusion PRN , sodium chloride irrigation PRN Vital Signs: Last Filed Vital Signs: 24 Hour Ra nge BP: 134/68 (09/05 0308) Temp: 36.4 C (97.5 F) (02/29 308) Pulse: 61 (02/29 308) Respirations: 17 PER MINUTE (02/29 308) SpO2: 94 % (02/29 308) O2 Device: Nasal cannula (02/29 308) O2 Liter Flow: 1 Lpm (02/29 308) BP: (113-148)/(47-68) Temp: [36.3 C (97.4 F)-36.8 C (98.3 F)] Pulse: [61-79] Respirations: [17 PER MINUTE-22 PER MINUTE] SpO2: [93 %-98 %] O2 Device: Nasal cannula O2 Liter Flow: 1 Lpm Intensity Pain Scale (Self Report): 5 Intensity Pain Scale (Self Report): 7 Vitals: 02/22/23 0837 02/23/23 1239 02/27/232000 Weight: 97.5 kg (215 lb) 97.1 kg (214 lb) 99.5 kg (219 lb 5.7 oz) Intake/Output Summary: (Last 24 hours) Intake/Output Summary (Last 24 hours) at 02/28/2023 0703 Last data filed at 02/28/2023 0311 Gross per 24 hour Intake 900 ml Output 1800 ml Net -900 ml Physical Exam: ECOG performance status is 4, Completely disabled. Cannot carry on any selfcare. Totally confined to bed or chair Vital signs and nursing notes reviewed General: Alert, oriented, no distress. Eyes: conjunctiva clear, pupils equal ENT: mucous membranes Dry, no mucositis noted. Dentures in place CV: irregular rhythm, no murmur, 1+ LE edema Pulm: no accessory muscle use, clear bilaterally, 1L Abd: Soft, Nontender, obese. Ext: No joint deformities, normal range of motion. No ttp posterior calf, swelli ng slight but equal bilaterally without erythema Derm: no rashes, petechiae Psych: No anxiety noted Lab Review: CBC w diff Lab Results Component Value Date/Time WBC 7.0 02/28/2023 03:00 AM RBC 2.53 (L) 02/28/2023 03:00 AM HGB 8.3 (L) 02/28/2023 03:00 AM HCT 24.3 (L) 02/28/2023 03:00 AM MCV 96.0 02/28/2023 03:00 AM MCH 32.9 02/28/2023 03:00 AM MCHC 34.2 02/28/2023 03:00 AM RDW 17.6 (H) 02/28/2023 03:00 AM PLTCT 27 (L) 02/28/2023 03:00 AM MPV 8.7 02/28/2023 03:00 AM Lab Results Component Value Date/Time ANC 0.84 (L) 02/28/2023 03:00 AM Comprehensive Metabolic Profile Lab Results Component Value Date/Time NA 138 02/28/2023 03:00 AM K 4.1 02/28/2023 03:00 AM CL 103 02/28/2023 03:00 AM CO2 29 02/28/2023 03:00 AM GAP 6 02/28/2023 03:00 AM BUN 21 02/28/2023 03:00 AM CR 1.00 02/28/2023 03:00 AM GLU 119 (H) 02/28/2023 03:00 AM Lab Results Component Value Date/Time CA 8.4 (L) 02/28/2023 03:00 AM PO4 3.3 02/28/2023 03:00 AM ALBUMIN 3.0 (L) 02/28/2023 03:00 AM TOTPROT 5.3 (L) 02/28/2023 03:00 AM ALKPHOS 75 02/28/2023 03:00 AM AST 30 02/28/2023 03:00 AM ALT 25 02/28/2023 03:00 AM TOTBILI 1.4 (H) 02/28/2023 03:00 AM Radiology Review: Pertinent radiology reviewed and discussed in assessment and plan. Britt Stevens MD * Kaci Gallardo RN - 02/27/2023 4:56 PM CDT Day [id number] Pain: 5/10 chronic back, position changes give relief. Nutrition: Immunosuppressed, appetite poor. Pt had about 100mL's of a protein sh candelaria. Ptt ate about 20% of dinner, ate some green beans. Pt had poor fluid intake . Pt having some mucositis complaints. GI/: Pt is incontinent of bowel and bladder. Pt is unaware when he is urinatin g or having a BM. Pt has external catheter in place. Catheter was changed this s hift. Activity: UWMax and Q2 Turn. Pt rarely has body movement. Pts primary movement i s with staff during turns. Pt does not move himself, pt remains in same position he was left in. Pt did sit in chair for dinner. Pt requested to stay in chair at shift change. New Events or Follow-up: Pt slept 90% of the day. Pt was easy to arouse but had difficulty staying awake. Pt also had delayed response when asked questions. Pt remains AOx4. 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 CGs with -7 PCR: p53 neg, FLT3 neg NGS: pending Referring physician: Dora BOWMAN Chemotherapy plan: Azacitidine, C1D1 02/17/23 Azacitidine C1D11 S/p hydrea Patient wishes to pursue a trial at chemotherapy, is agreeable to start here but hopes to transition his care to Dr. Mame Neri in [place], [place] as soon as he can be stable to discharge. Heme: Monitor CBC for transfusion needs, goal Hgb>8 and platelets >10K Transfusion 02/27/23: Platelets DVT prophylaxis with lovenox unless platelets <50K or signs of DIC Hold LEAD SLOT TECHNICIAN Eliquis 5mg Po BID with thrombocytopenia Hold LEAD SLOT TECHNICIAN ASA 81mg with thrombocytopenia RUE edema and discomfort. US negative INR elevated. Improved s/p vitamin K FEN/Renal: LIANNA: improved, cr cl 02/27/23 78 (69.5) - Potentially due to hypotensive episode: Hypotensive on 02/17pm in setting of fe pat. - Improved with abx and IVF Hyponatremia: monitor Hypophos: replace prn TLS and uric acid monitoring Replace electrolytes per HIGH protocol per cardiology D/c allopurinol Immunocompromised diet Poor po intake but improving. Boost shake supplements. Nutrition consulted. Kourtney kyle closely for need for enteral nutrition Lasix 40mg IV x 2 doses, last 02/24. Hold 02/25 d/t mild LIANNA. 20mg IV 02/27 ID: Neutropenic fever, no clear source - Fever on 02/17 - Completed 7 days cefepime . 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 Increased to 37.5mg BID - Chest pain with exertion with PT: EKG normal, trop normal - proBNP 1459 - Reg stress test: completed 02/16 and low risk for inducible myocardial ischemia - carotid duplex: mild bilateral carotid plaques - Holding LEAD SLOT TECHNICIAN aspirin and Eliquis - Hold LEAD SLOT TECHNICIAN losartan 100mg and chlorthalidone 25mg. Hold LEAD SLOT TECHNICIAN repatha GI: GERD: cont LEAD SLOT TECHNICIAN PPI Hyperbilirubinemia: Bili 02/27/23 1.4, stable Constipation: Increase miralax dose. Gave dose of lactulose. Resolved Ophtho: left eye periorbital redness, rubbing his eye 02/26: add artificial tears. Resolved 02/27 : BPH: Continue dutasteride & Tamsulosin (formulary sub for them to be separate drugs) Continue LEAD SLOT TECHNICIAN oxybutynin Pulm: ODETTE: on CPAP at night Hypoxia: New onset 02/23 am, CXR stable. O2 requirement 02/27/23 2L See FEN for diuresis Endo: Diabetes Mellitus - d/c FSBS and insulin 02/16 - Hold oral hypoglycemics. Holding januvia and plan to d/c at discharge - Hgb A1c 5, so with weight loss LEAD SLOT TECHNICIAN likely no longer needs therapy at this time MSK: Low back pain: sacral nerve stimulator in place up until October 2022 when had 3rd b ack surgery, during which time was removed Derm: Unstageable sacral wound, wound care rec A & D Abrasion Left first castro, monitor Psych: Monitor and offer support as needed. Code status: DNAR-Full Intervention (last reviewed 02/16) Dispo: likely to need SNF, would like more mobility improvement before considera tion of further chemotherapy. would like to consider SNF in [facility], will review with SW on Monday. Britt Stevens MD Hematologic Malignancies and Cellular Therapeutics Available by Voalte and AMS Connect After hours coverage first call via Cooperative Education Coordinator 8pm to 8am: pager [phone] | Voalte "Med Private 6" Subjective: Braulio López is a 82 y.o. male. C/o dry mouth. Ate 3 shakes + bit es of chicken enchilada, ice cream, etc. Got to chair with luzmaria. Some back bee n with positioning this morning, improved with movement Objective: Medications: Scheduled Meds:artificial tears (PF) single dose ophthalmic solution 1 drop, 1 d rop, Both Eyes, BID dutasteride (AVODART) capsule 0.5 mg, 0.5 mg, Oral, QDAY w/dinner And tamsulosin (FLOMAX) capsule 0.4 mg, 0.4 mg, Oral, QDAY w/dinner metoprolol tartrate tablet 37.5 mg, 37.5 mg, Oral, BID oxybutynin XL (DITROPAN XL) tablet 15 mg, 15 mg, Oral, QDAY pantoprazole DR (PROTONIX) tablet 40 mg, 40 mg, Oral, QDAY(21) polyethylene glycol 3350 (MIRALAX) packet 17 g, 1 packet, Oral, BID sodium chloride PF 0.9% flush 10-20 mL, 10-20 mL, Flush, FLUSH Daily Continuous Infusions: PRN and Respiratory Meds:acetaminophen Q6H PRN, magnesium sulfate 4 g/50 mL PRN, melatonin QHS PRN, potassium chloride in water PRN (Duplicating Machine Operator from Rx) OR pot assium chloride SR PRN (Duplicating Machine Operator from Rx), sodium chloride 0.9 % TKO infusion PRN , sodium chloride irrigation PRN Vital Signs: Last Filed Vital Signs: 24 Hour Ra nge BP: 131/53 (02/27 653) Temp: 36.7 C (98 F) (02/27 653) Pulse: 67 (02/27 653) Respirations: 17 PER MINUTE (02/27 653) SpO2: 93 % (02/27 609) O2 Device: Nasal cannula (02/27 653) O2 Liter Flow: 2 Lpm (02/27 653) BP: (123-146)/(53-71) Temp: [36.4 C (97.6 F)-36.7 C (98.1 F)] Pulse: [60-81] Respirations: [16 PER MINUTE-18 PER MINUTE] SpO2: [91 %-95 %] O2 Device: Nasal cannula O2 Liter Flow: 2 Lpm Intensity Pain Scale (Self Report): 4 Intensity Pain Scale (Self Report): 7 Vitals: 02/21/23 1400 02/22/23 0837 02/23/23 1239 Weight: 98.8 kg (217 lb 12.8 oz) 97.5 kg (215 lb) 97.1 kg (214 lb) Intake/Output Summary: (Last 24 hours) Intake/Output Summary (Last 24 hours) at 02/27/2023 0726 Last data filed at 02/27/2023 0644 Gross per 24 hour Intake 1636 ml Output 1475 ml Net 161 ml Physical Exam: ECOG performance status is 3, Capable of only limited selfcare, confined to bed or chair more than 50% of waking hours Vital signs and nursing notes reviewed General: Alert, oriented, no distress. Eyes: conjunctiva clear, pupils equal ENT: mucous membranes Dry, no mucositis noted. Dentures in place CV: irregular rhythm, no murmur, 1+ LE edema Pulm: no accessory muscle use, clear bilaterally, 2L Abd: Soft, Nontender, obese. vidaza injection sites healing, one with hematoma/m ore solid but no signs of infection Ext: No joint deformities or swelling, normal range of motion. No ttp posterior calf, swelling slight but equal bilaterally without erythema Derm: no rashes, petechiae Psych: No anxiety noted Lab Review: CBC w diff Lab Results Component Value Date/Time WBC 8.6 02/27/2023 03:27 AM RBC 2.70 (L) 02/27/2023 03:27 AM HGB 9.1 (L) 02/27/2023 03:27 AM HCT 26.1 (L) 02/27/2023 03:27 AM MCV 96.9 02/27/2023 03:27 AM MCH 33.7 02/27/2023 03:27 AM MCHC 34.7 02/27/2023 03:27 AM RDW 17.8 (H) 02/27/2023 03:27 AM PLTCT 9 (LL) 02/27/2023 03:27 AM MPV 9.1 02/27/2023 03:27 AM Lab Results Component Value Date/Time ANC 0.95 (L) 02/27/2023 03:27 AM Comprehensive Metabolic Profile Lab Results Component Value Date/Time NA 138 02/27/2023 03:27 AM K 4.4 02/27/2023 03:27 AM CL 105 02/27/2023 03:27 AM CO2 27 02/27/2023 03:27 AM GAP 6 02/27/2023 03:27 AM BUN 24 02/27/2023 03:27 AM CR 0.88 02/27/2023 03:27 AM GLU 126 (H) 02/27/2023 03:27 AM Lab Results Component Value Date/Time CA 8.6 02/27/2023 03:27 AM PO4 2.5 02/27/2023 03:27 AM ALBUMIN 2.9 (L) 02/27/2023 03:27 AM TOTPROT 5.3 (L) 02/27/2023 03:27 AM ALKPHOS 72 02/27/2023 03:27 AM AST 31 02/27/2023 03:27 AM ALT 24 02/27/2023 03:27 AM TOTBILI 1.4 (H) 02/27/2023 03:27 AM Radiology Review: Pertinent radiology reviewed and discussed in assessment and plan. Britt Stevens MD * Sarah Peraza RN - 02/27/2023 7:00 AM CDT I have reviewed the notes, assessments, and/or procedures performed by Laura lind RN, and concur with her/his documentation unless otherwise noted. 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 CGs with -7 PCR: p53 neg, FLT3 neg NGS: pending Referring physician: Via Kristen BOWMAN Chemotherapy plan: Azacitidine, C1D1 02/17/23 Azacitidine C1D10 S/p hydrea Patient wishes to pursue a trial at chemotherapy, is agreeable to start here but hopes to transition his care to Dr. Mame Neri in [place], [place] as soon as he can be stable to discharge. Heme: Monitor CBC for transfusion needs, goal Hgb>8 and platelets >10K Transfusion 02/26/23: None DVT prophylaxis with lovenox unless platelets <50K or signs of DIC Hold LEAD SLOT TECHNICIAN Eliquis 5mg Po BID with thrombocytopenia Hold LEAD SLOT TECHNICIAN ASA 81mg with thrombocytopenia RUE edema and discomfort. US negative INR elevated. Improved s/p vitamin K FEN/Renal: LIANNA: improved, cr cl 02/26/23 69.5 ( 53.3) - Potentially due to hypotensive episode: Hypotensive on 825pm in setting of fe pat. - Improved with abx and IVF Hyponatremia: monitor Hypophos: replace prn TLS and uric acid monitoring Replace electrolytes per HIGH protocol per cardiology D/c allopurinol Immunocompromised diet Poor po intake. Boost shake supplements. Nutrition consulted. Monitor closely fo r need for enteral nutrition Lasix 40mg IV x 2 doses, last 02/24. Hold 02/25 d/t mild LIANNA ID: Neutropenic fever, no clear source - Fever on 02/17 - Completed 7 days cefepime . 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 Increased to 37.5mg BID - Chest pain with exertion with PT: EKG normal, trop normal - proBNP 1459 - Reg stress test: completed 02/16 and low risk for inducible myocardial ischemia - carotid duplex: mild bilateral carotid plaques - Holding LEAD SLOT TECHNICIAN aspirin and Eliquis - Hold LEAD SLOT TECHNICIAN losartan 100mg and chlorthalidone 25mg. Hold LEAD SLOT TECHNICIAN repatha GI: GERD: cont LEAD SLOT TECHNICIAN PPI Hyperbilirubinemia: Bili 02/26/23 1.7, slightly worse Constipation: Increase miralax dose. Gave dose of lactulose. Resolved Ophtho: left eye periorbital redness, rubbing his eye 02/26: add artificial tears : BPH: Continue dutasteride & Tamsulosin (formulary sub for them to be separate drugs) Continue LEAD SLOT TECHNICIAN oxybutynin Pulm: ODETTE: on CPAP at night Hypoxia: New onset 02/23 am, CXR stable. O2 requirement 02/26/23 RA See FEN for diuresis Endo: Diabetes Mellitus - d/c FSBS and insulin 02/16 - Hold oral hypoglycemics. Holding januvia and plan to d/c at discharge - Hgb A1c 5, so with weight loss LEAD SLOT TECHNICIAN likely no longer needs therapy at this time MSK: Low back pain: sacral nerve stimulator in place up until October 2022 when had 3rd b ack surgery, during which time was removed Derm: Unstageable sacral wound, wound care rec A & D Abrasion Left first castro, monitor Psych: Monitor and offer support as needed. Code status: DNAR-Full Intervention (last reviewed 02/16) Dispo: likely to need SNF, would like more mobility improvement before considera tion of further chemotherapy. would like to consider SNF in [facility], will review with SW on Monday. Britt Stevens MD Hematologic Malignancies and Cellular Therapeutics Available by Voalte and AMS Connect After hours coverage first call via Cooperative Education Coordinator 8pm to 8am: pager [phone] | Voalte "Med Private Nights 6" Subjective: Braulio López is a 82 y.o. male. Patient had 3 protein shakes Satu rday, hines, cream of wheat. Working on first shake this morning. Hoping to get up to chair with luzmaria lift with his kids visiting today. C/o bilateral calf bee n with leg positioning/SCDs. Objective: Medications: Scheduled Meds:allopurinoL (ZYLOPRIM) tablet 300 mg, 300 mg, Oral, QDAY dutasteride (AVODART) capsule 0.5 mg, 0.5 mg, Oral, QDAY w/dinner And tamsulosin (FLOMAX) capsule 0.4 mg, 0.4 mg, Oral, QDAY w/dinner metoprolol tartrate tablet 37.5 mg, 37.5 mg, Oral, BID oxybutynin XL (DITROPAN XL) tablet 15 mg, 15 mg, Oral, QDAY pantoprazole DR (PROTONIX) tablet 40 mg, 40 mg, Oral, QDAY(21) polyethylene glycol 3350 (MIRALAX) packet 17 g, 1 packet, Oral, BID sodium chloride PF 0.9% flush 10-20 mL, 10-20 mL, Flush, FLUSH Daily Continuous Infusions: PRN and Respiratory Meds:acetaminophen Q6H PRN, magnesium sulfate 4 g/50 mL PRN, melatonin QHS PRN, potassium chloride in water PRN (Duplicating Machine Operator from Rx) OR pot assium chloride SR PRN (Duplicating Machine Operator from Rx), sodium chloride 0.9 % TKO infusion PRN , sodium chloride irrigation PRN Vital Signs: Last Filed Vital Signs: 24 Hour Ra nge BP: 122/62 (02/27 324) Temp: 36.7 C (98.1 F) (02/27 324) Pulse: 62 (02/27 324) Respirations: 16 PER MINUTE (02/27 324) SpO2: 93 % (02/27 324) O2 Device: None (Room air) (02/27 324) BP: (118-136)/(58-68) Temp: [36.4 C (97.5 F)-37 C (98.6 F)] Pulse: [54-79] Respirations: [16 PER MINUTE-20 PER MINUTE] SpO2: [93 %-96 %] O2 Device: None (Room air) Intensity Pain Scale (Self Report): 5 Vitals: 02/21/23 1400 02/22/23 0837 02/23/23 1239 Weight: 98.8 kg (217 lb 12.8 oz) 97.5 kg (215 lb) 97.1 kg (214 lb) Intake/Output Summary: (Last 24 hours) Intake/Output Summary (Last 24 hours) at 02/26/2023 0728 Last data filed at 02/26/2023 0400 Gross per 24 hour Intake 2210 ml Output 1725 ml Net 485 ml Physical Exam: ECOG performance status is 3, Capable of only limited selfcare, confined to bed or chair more than 50% of waking hours Vital signs and nursing notes reviewed General: Alert, oriented, no distress. Eyes: conjunctiva clear, pupils equal ENT: mucous membranes moist, no mucositis noted. Dentures in place CV: irregular rhythm, no murmur, 1+ LE edema Pulm: no accessory muscle use, clear bilaterally, on room air Abd: Soft, Nontender, obese. vidaza injection sites healing, one with hematoma/m ore solid but no signs of infection Ext: No joint deformities or swelling, normal range of motion. No ttp posterior calf, swelling slight but equal bilaterally without erythema Derm: no rashes, petechiae Psych: No anxiety noted Lab Review: CBC w diff Lab Results Component Value Date/Time WBC 8.8 02/26/2023 03:32 AM RBC 2.67 (L) 02/26/2023 03:32 AM HGB 8.9 (L) 02/26/2023 03:32 AM HCT 25.5 (L) 02/26/2023 03:32 AM MCV 95.4 02/26/2023 03:32 AM MCH 33.3 02/26/2023 03:32 AM MCHC 34.9 02/26/2023 03:32 AM RDW 18.4 (H) 02/26/2023 03:32 AM PLTCT 12 (LL) 02/26/2023 03:32 AM MPV 8.9 02/26/2023 03:32 AM Lab Results Component Value Date/Time ANC 1.84 02/26/2023 03:32 AM Comprehensive Metabolic Profile Lab Results Component Value Date/Time NA 138 02/26/2023 03:32 AM K 4.1 02/26/2023 03:32 AM CL 104 02/26/2023 03:32 AM CO2 28 02/26/2023 03:32 AM GAP 6 02/26/2023 03:32 AM BUN 28 (H) 02/26/2023 03:32 AM CR 0.99 02/26/2023 03:32 AM GLU 138 (H) 02/26/2023 03:32 AM Lab Results Component Value Date/Time CA 8.4 (L) 02/26/2023 03:32 AM PO4 1.8 (L) 02/26/2023 03:32 AM ALBUMIN 2.9 (L) 02/26/2023 03:32 AM TOTPROT 5.3 (L) 02/26/2023 03:32 AM ALKPHOS 70 02/26/2023 03:32 AM AST 32 02/26/2023 03:32 AM ALT 22 02/26/2023 03:32 AM TOTBILI 1.7 (H) 02/26/2023 03:32 AM Radiology Review: Pertinent radiology reviewed and discussed in assessment and plan. 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 CGs with -7 PCR: p53 neg, FLT3 neg NGS: pending Referring physician: Via Kristen BOWMAN Chemotherapy plan: Azacitidine, C1D1 02/17/23 Azacitidine C1D9 S/p hydrea Patient wishes to pursue a trial at chemotherapy, is agreeable to start here but hopes to transition his care to Dr. Mame Neri in [place], [place] as soon as he can be stable to discharge. Heme: Monitor CBC for transfusion needs, goal Hgb>8 and platelets >10K Transfusion 02/25/23: PRBC DVT prophylaxis with lovenox unless platelets <50K or signs of DIC Hold LEAD SLOT TECHNICIAN Eliquis 5mg Po BID with thrombocytopenia Hold LEAD SLOT TECHNICIAN ASA 81mg with thrombocytopenia RUE edema and discomfort. US negative INR elevated. Improved s/p vitamin K FEN/Renal: LIANNA: slightly worse, cr cl 02/25/23 53.3 - Potentially due to hypotensive episode: Hypotensive on 8pm in setting of fe pat. - Improved with abx and IVF Hyponatremia: monitor Hypophos: replace prn TLS and uric acid monitoring Replace electrolytes per HIGH protocol per cardiology Cont allopurinol Immunocompromised diet Poor po intake. Boost shake supplements. Nutrition consulted. Monitor closely fo r need for enteral nutrition Lasix 40mg IV x 2 doses, last 02/24. Hold 02/25 d/t mild LIANNA ID: Neutropenic fever, no clear source - Fever on 02/17 - Completed 7 days cefepime . 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 Increased to 37.5mg BID - Chest pain with exertion with PT: EKG normal, trop normal - proBNP 1459 - Reg stress test: completed 02/16 and low risk for inducible myocardial ischemia - carotid duplex: mild bilateral carotid plaques - Holding LEAD SLOT TECHNICIAN aspirin and Eliquis - Hold LEAD SLOT TECHNICIAN losartan 100mg and chlorthalidone 25mg. Hold LEAD SLOT TECHNICIAN repatha GI: GERD: cont LEAD SLOT TECHNICIAN PPI Hyperbilirubinemia: Bili 02/25/23 1.4, improving Constipation: Increase miralax dose. Gave dose of lactulose. Resolved : BPH: Continue dutasteride & Tamsulosin (formulary sub for them to be separate drugs) Continue LEAD SLOT TECHNICIAN oxybutynin Pulm: ODETTE: on CPAP at night Hypoxia: New onset 02/23 am, CXR stable. O2 requirement 02/25/23 RA See FEN for diuresis Endo: Diabetes Mellitus - d/c FSBS and insulin 02/16 - Hold oral hypoglycemics. Holding januvia and plan to d/c at discharge - Hgb A1c 5, so with weight loss LEAD SLOT TECHNICIAN likely no longer needs therapy at this time MSK: Low back pain: sacral nerve stimulator in place up until October 2022 when had 3rd b ack surgery, during which time was removed Derm: Unstageable sacral wound, wound care rec A & D Abrasion Left first castro, monitor Psych: Monitor and offer support as needed. Code status: DNAR-Full Intervention (last reviewed 02/16) Dispo: likely to need SNF, would like more mobility improvement before considera tion of further chemotherapy. would like to consider SNF in [place] ar [place], will review with SW on Monday. Britt Stevens MD Hematologic Malignancies and Cellular Therapeutics Available by Voalte and AMS Connect After hours coverage first call via Cooperative Education Coordinator 8pm to 8am: pager [phone] | Voalte "Med 6" Subjective: Braulio López is a 82 y.o. male. Patient states he walked to door yesterday. His at bedside states doing better with protein shakes/eggs/baco n. Having a harder time with starchy foods like bread. Reviewed focus on foods w ith moisture would be ideal Objective: Medications: Scheduled Meds:acyclovir (ZOVIRAX) tablet 400 mg, 400 mg, Oral, BID allopurinoL (ZYLOPRIM) tablet 300 mg, 300 mg, Oral, QDAY dutasteride (AVODART) capsule 0.5 mg, 0.5 mg, Oral, QDAY w/dinner And tamsulosin (FLOMAX) capsule 0.4 mg, 0.4 mg, Oral, QDAY w/dinner furosemide (LASIX) injection 40 mg, 40 mg, Intravenous, QDAY levoFLOXacin (LEVAQUIN) tablet 750 mg, 750 mg, Oral, Q24H* metoprolol tartrate tablet 37.5 mg, 37.5 mg, Oral, BID oxybutynin XL (DITROPAN XL) tablet 15 mg, 15 mg, Oral, QDAY pantoprazole DR (PROTONIX) tablet 40 mg, 40 mg, Oral, QDAY(21) polyethylene glycol 3350 (MIRALAX) packet 17 g, 1 packet, Oral, BID posaconazole EC (NOXAFIL) tablet 300 mg, 300 mg, Oral, QDAY w/breakfast potassium phosphate 16 mmol in dextrose 5% (D5W) 250 mL IVPB, 16 mmol, Intraveno us, ONCE sodium chloride PF 0.9% flush 10-20 mL, 10-20 mL, Flush, FLUSH Daily Continuous Infusions: PRN and Respiratory Meds:acetaminophen Q6H PRN, magnesium sulfate 4 g/50 mL PRN, melatonin QHS PRN, potassium chloride in water PRN (Duplicating Machine Operator from Rx) OR pot assium chloride SR PRN (Duplicating Machine Operator from Rx), sodium chloride 0.9 % TKO infusion PRN , sodium chloride irrigation PRN Vital Signs: Last Filed Vital Signs: 24 Hour Ra nge BP: 128/61 (02/25 610) Temp: 36.8 C (98.2 F) (02/25 610) Pulse: 62 (02/25 610) Respirations: 18 PER MINUTE (02/25 610) SpO2: 93 % (02/25 610) O2 Device: None (Room air) (02/25 610) BP: (109-135)/(49-65) Temp: [36.7 C (98.1 F)-36.9 C (98.4 F)] Pulse: [62-75] Respirations: [15 PER MINUTE-18 PER MINUTE] SpO2: [93 %-97 %] O2 Device: None (Room air) Intensity Pain Scale (Self Report): 5 Vitals: 02/21/23 1400 02/22/23 0837 02/23/23 1239 Weight: 98.8 kg (217 lb 12.8 oz) 97.5 kg (215 lb) 97.1 kg (214 lb) Intake/Output Summary: (Last 24 hours) Intake/Output Summary (Last 24 hours) at 02/25/2023 0700 Last data filed at 02/25/2023 0305 Gross per 24 hour Intake 2277 ml Output 850 ml Net 1427 ml Physical Exam: ECOG performance status is 3, Capable of only limited selfcare, confined to bed or chair more than 50% of waking hours Vital signs and nursing notes reviewed General: Alert, oriented, no distress. Eyes: conjunctiva clear, pupils equal ENT: mucous membranes moist, no mucositis noted. Dentures in place CV: irregular rhythm, no murmur, 1+ LE edema Pulm: no accessory muscle use, clear bilaterally, on room air Abd: Soft, Nontender, Nondistended, no abnormal organ enlargement/mass Ext: No joint deformities or swelling, normal range of motion Derm: no rashes, petechiae Psych: No anxiety noted Lab Review: CBC w diff Lab Results Component Value Date/Time WBC 9.0 02/25/2023 03:01 AM RBC 2.36 (L) 02/25/2023 03:01 AM HGB 8.0 (L) 02/25/2023 03:01 AM HCT 23.2 (L) 02/25/2023 03:01 AM MCV 98.3 02/25/2023 03:01 AM MCH 34.0 02/25/2023 03:01 AM MCHC 34.6 02/25/2023 03:01 AM RDW 18.4 (H) 02/25/2023 03:01 AM PLTCT 14 (LL) 02/25/2023 03:01 AM MPV 8.7 02/25/2023 03:01 AM Lab Results Component Value Date/Time ANC 1.98 02/25/2023 03:01 AM Comprehensive Metabolic Profile Lab Results Component Value Date/Time NA 136 (L) 02/25/2023 03:01 AM K 3.8 02/25/2023 03:01 AM CL 102 02/25/2023 03:01 AM CO2 28 02/25/2023 03:01 AM GAP 6 02/25/2023 03:01 AM BUN 32 (H) 02/25/2023 03:01 AM CR 1.29 (H) 02/25/2023 03:01 AM GLU 171 (H) 02/25/2023 03:01 AM Lab Results Component Value Date/Time CA 8.3 (L) 02/25/2023 03:01 AM PO4 1.9 (L) 02/25/2023 03:01 AM ALBUMIN 3.0 (L) 02/25/2023 03:01 AM TOTPROT 5.7 (L) 02/25/2023 03:01 AM ALKPHOS 66 02/25/2023 03:01 AM AST 26 02/25/2023 03:01 AM ALT 19 02/25/2023 03:01 AM TOTBILI 1.4 (H) 02/25/2023 03:01 AM Radiology Review: Pertinent radiology reviewed and discussed in assessment and plan. Britt Stevens MD * Ricarda Stearns OT - 02/24/2023 2:59 PM CDT OCCUPATIONAL THERAPY NOTE Attempted to see patient for occupational therapy at scheduled time with rehab t janeth. Patient declines to participate despite encouragement and education a bout the benefits of therapy. Encouraged patient to get up to chair 2x per day o pat the weekend and perform leg exercises in chair. Spouse is agreeable to encou rage patient. Occupational therapy will continue to follow to provide interventi on as indicated. Ricarda Ste[place]s O[place]/L [id number] * Suraj Dhaliwal, PT - 02/24/2023 11:33 AM CDT PHYSICAL THERAPY PROGRESS NOTE Name: Braulio López : 1940 Age: 82 y.o. Admission Date: 02/13/2023 LOS: 11 days Date of Service: 02/24/2023 Mobility Patient Turn/Position: Chair Progressive Mobility Level: Walk in room Distance Walked (feet): 8 ft Level of Assistance: Assist X2 Assistive Device: Walker (Chair follow) Activity Limited By: Fatigue;Weakness Subjective Significant hospital events: 82 y.o. male with past medical history hypertension , hyperlipidemia, ODETTE on CPAP DM, chronic back pain with sacral stimulator PAF , GERD, BPH presents from OSH due to concern for new acute leukemia diagnosis Mental / Cognitive Status: Alert;Oriented;Cooperative;Follows Commands Persons Present: RehabTechnician;Spouse Pain: Patient does not rate pain Pain Interventions: Patient agrees to participate in therapy Comments: Pt less lethargic this session and more tolerant of therapy Ambulation Assist: Independent Mobility in Community with Device;Independent Mob ility in Community with Endurance Limitations Patient Owned Equipment: Single Point Cane;4-Wheeled Walker;Lift Chair Home Situation: Lives with Family;Receives Assistance from Family () Type of Home: House Entry Stairs: No Stairs In-Home Stairs: 1-2 Flights of Stairs;Able to Live on One Level Comments: Spouse completes all IADLs, and intermittently assists with IADLs such as being standby during showers, but patient reports typically able to dress se lf. Has become more difficult lately. Patient sleeps on main level in his lift c hair, and negotiates upstairs to bathroom 1x/wk for shower. Patient reports this has been the case for several months as he has been too fatigued to climb the s tairs. Bed Mobility/Transfer Bed Mobility: Supine to Sit: Moderate Assist;of 1st Person;Minimal Assist;of 2nd Person;Head of Bed Elevated;Requires Extra Time (Once upright, able to scoot hi ps towards EOB without extra help) Transfer Type: Sit to/from Stand Transfer: Assistance Level: To/From;Bed;Moderate Assist;x2 People Transfer: Assistive Device: Roller Walker Transfers: Type Of Assistance: Verbal Cues;Elevated Bed;For Strength Deficit;For Safety Considerations Other Transfer Type: Sit to/from Stand Other Transfer: Assistance Level: To/From;Bed Side Chair;Maximal Assist Other Transfer: Assistive Device: Roller Walker Other Transfer: Type Of Assistance: Verbal Cues;For Strength Deficit;For Safety Considerations End Of Activity Status: Up in Chair;Nursing Notified;Instructed Patient to Reque st Assist with Mobility;Instructed Patient to Use Call Light (Chair alarm activa merline) Gait Gait Distance: 5 feet Gait: Assistance Level: Minimal Assist;of 1st person;Safety Considerations;of 2n d person Gait: Assistive Device: Roller Walker;Wheelchair Follow Gait: Descriptors: Forward trunk flexion;Pace: Slow;Swing-Through Gait;No balanc e loss;Decreased step length Comments: Cues for hips within walker and step length; cues to bring walker with patient when attempting to step back to sit in chair Activity Limited By: Complaint of Fatigue;Weakness Education Persons Educated: Patient Patient Barriers To Learning: None Noted Interventions: Repetition of Instructions Teaching Methods: Verbal Instruction Patient Response: Verbalized Understanding Topics: Plan/Goals of PT Interventions;Mobility Progression;Importance of Increa sing Activity;Recommend Continued Therapy;Safety Awareness Assessment/Progress Impaired Mobility Due To: Deconditioning;Medical Status Limitation;Decreased Act ivity Tolerance;Decreased Strength;Impaired Balance Impaired Strength Due To: Medical Status Limitation;Decreased Activity Tolerance ;Deconditioning Assessment/Progress: Progressing Toward Goals [facility] 6 Clicks Basic Mobility Inpatient Turning from your back to your side while in a flat bed without using bed rails: A lot Moving from lying on your back to sitting on the side of a flat bed without usin g bedrails : A Lot Moving to and from a bed to a chair (including a wheelchair): A Lot Standing up from a chair using your arms (e.g. wheelchair, or bedside chair): A Lot To walk in hospital room: A Lot Climbing 3-5 steps with a railing: Total Basic Mobility Inpatient Raw Score: 11 Standardized (T-scale) Score: 30.25 AM-PAC Basic Mobility Functional Stage: 34-51 Limited Mobility Indoors Goals Goal Formulation: With Patient Time For Goal Achievement: 7 days Patient Will Go Supine To/From Sit: Independently, Ongoing Patient Will Transfer Bed/Chair: Independently, Ongoing Patient Will Transfer Sit to Stand: w/ Stand By Assist, Met Patient Will Ambulate: Greater than 200 Feet, w/ Walker, w/ Stand By Assist, Joellen oing Patient Will Go Up / Down Stairs: 1-2 Flights, w/ Stand By Assist, Ongoing Plan Treatment Interventions: Mobility Training;Strengthening;Balance Activities;Endu bhavesh Training Plan Frequency: 5 Days per Week PT Plan for Next Visit: Recommend Ax2 (starting to decline?); sit/stands and pro twan gait as able w/ chair follow. PT Discharge Recommendations Recommendation: Inpatient setting (Anticipate d/c home but starting to have func itonal decline; will update recs as appropriate.) Recommendation for Therapy Post Discharge: Home health Patient Currently Requires Equipment: Owns what is needed Therapist: Suraj Dhaliwal, PT Date: 02/24/2023 * Yevgeniy Madrid, DO - 02/24/2023 7:29 AM CDT Acute Leukemia Service Progress Note Today's Date: 02/24/2023 Name: Braulio López Admission Date: 02/13/2023 LOS: LOS: 11 days Assessment/Plan: Principal Problem: Acute myeloid leukemia not having achieved remission (HCC) Active Problems: 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 CGs with -7 PCR: p53 neg, FLT3 neg NGS: pending Referring physician: Dora BOWMAN Chemotherapy plan: Azacitidine, C1D1 02/17/23 Azacitidine C1D8 S/p hydrea Patient wishes to pursue a trial at chemotherapy, is agreeable to start here but hopes to transition his care to Dr. Mame Neri in [place], [place] as soon as he can be stable to discharge. Heme: Monitor CBC for transfusion needs, goal Hgb>8 and platelets >10K Transfusion 02/24/23: None DVT prophylaxis with lovenox unless platelets <50K or signs of DIC Hold LEAD SLOT TECHNICIAN Eliquis 5mg Po BID with thrombocytopenia Hold LEAD SLOT TECHNICIAN ASA 81mg with thrombocytopenia RUE edema and discomfort. US negative INR elevated. Improved s/p vitamin K FEN/Renal: LIANNA: Improving - CT a/p without obstruction. - Potentially due to hypotensive episode: Hypotensive on 02/17pm in setting of fe pat. - Improved with abx and IVF. Continues to improve Hyponatremia: monitor Hypophos: replace prn TLS and uric acid monitoring Replace electrolytes per HIGH protocol per cardiology Cont allopurinol Immunocompromised diet Poor po intake. Boost shake supplements. Nutrition consulted. Monitor closely fo r need for enteral nutrition Intermittent. Repeat 40mg IV lasix again 02/24 and schedule daily ofr now ID: Neutropenic fever, no clear source - Fever on 02/17 - Completed 7 days cefepime. 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 Increased to 37.5mg BID - Chest pain with exertion with PT: EKG normal, trop normal - proBNP 1459 - Reg stress test: completed 02/16 and low risk for inducible myocardial ischemia - carotid duplex: mild bilateral carotid plaques - Holding LEAD SLOT TECHNICIAN aspirin and Eliquis - Hold LEAD SLOT TECHNICIAN losartan 100mg and chlorthalidone 25mg. Hold LEAD SLOT TECHNICIAN repatha GI: GERD: cont LEAD SLOT TECHNICIAN PPI Constipation: Increase miralax dose. Gave dose of lactulose. Resolved : BPH: Continue dutasteride & Tamsulosin (formulary sub for them to be separate drugs) Continue LEAD SLOT TECHNICIAN oxybutynin Pulm: ODETTE: on CPAP at night Hypoxia: New onset 02/23 am. CXR with pulm edema. Diuresis as above. On room air 02/24 Endo: Diabetes Mellitus - d/c FSBS and insulin 02/16 - Hold oral hypoglycemics. Holding januvia and plan to d/c at discharge - Hgb A1c 5, so with weight loss LEAD SLOT TECHNICIAN likely no longer needs therapy at this time MSK: Low back pain: sacral nerve stimulator in place up until October 2022 when had 3rd b ack surgery, during which time was removed Derm: Unstageable sacral wound, wound care rec A & D Abrasion Left first castro, monitor Psych: Monitor and offer support as needed. Code status: DNAR-Full Intervention (last reviewed 02/16) Yevgeniy Madrid, Hematologic Malignancies and Cellular Therapeutics Available by Voalte and AMS Connect After hours coverage first call via Cooperative Education Coordinator 8pm to 8am: pager [phone] | Voalte "Med Private Nights 6" Subjective: Braulio López is a 82 y.o. male. Ongoing fatigue. 2 protein shakes yesterday. No palpitations, dyspnea or chest pain or cough. No overt bleeding. Objective: Medications: Scheduled Meds:acyclovir (ZOVIRAX) tablet 400 mg, 400 mg, Oral, BID allopurinoL (ZYLOPRIM) tablet 300 mg, 300 mg, Oral, QDAY CHOLEcalciferoL (vitamin D3) tablet 1,000 Units, 1,000 Units, Oral, BID cyanocobalamin (vitamin B-12) tablet 1,000 mcg, 1,000 mcg, Oral, QDAY dutasteride (AVODART) capsule 0.5 mg, 0.5 mg, Oral, QDAY w/dinner And tamsulosin (FLOMAX) capsule 0.4 mg, 0.4 mg, Oral, QDAY w/dinner levoFLOXacin (LEVAQUIN) tablet 750 mg, 750 mg, Oral, Q24H* metoprolol tartrate tablet 37.5 mg, 37.5 mg, Oral, BID oxybutynin XL (DITROPAN XL) tablet 15 mg, 15 mg, Oral, QDAY pantoprazole DR (PROTONIX) tablet 40 mg, 40 mg, Oral, QDAY(21) polyethylene glycol 3350 (MIRALAX) packet 17 g, 1 packet, Oral, BID posaconazole EC (NOXAFIL) tablet 300 mg, 300 mg, Oral, QDAY w/breakfast sodium chloride PF 0.9% flush 10-20 mL, 10-20 mL, Flush, FLUSH Daily Continuous Infusions: PRN and Respiratory Meds:acetaminophen Q6H PRN, magnesium sulfate 4 g/50 mL PRN, melatonin QHS PRN, potassium chloride in water PRN (Duplicating Machine Operator from Rx) OR pot assium chloride SR PRN (Duplicating Machine Operator from Rx), sodium chloride 0.9 % TKO infusion PRN , sodium chloride irrigation PRN Vital Signs: Last Filed Vital Signs: 24 Hour Ra nge BP: 122/63 (02/25 312) Temp: 36.9 C (98.5 F) (02/25 312) Pulse: 79 (02/25 312) Respirations: 16 PER MINUTE (02/25 312) SpO2: 95 % (02/25 312) O2 Device: None (Room air) (02/25 312) O2 Liter Flow: 2 Lpm (02/23 2221) BP: (114-133)/(62-97) Temp: [36.6 C (97.8 F)-37.5 C (99.5 F)] Pulse: [71-100] Respirations: [16 PER MINUTE-20 PER MINUTE] SpO2: [93 %-97 %] O2 Device: None (Room air) O2 Liter Flow: 2 Lpm Intensity Pain Scale (Self Report): 6 Vitals: 02/21/23 1400 02/22/23 0837 02/23/23 1239 Weight: 98.8 kg (217 lb 12.8 oz) 97.5 kg (215 lb) 97.1 kg (214 lb) Intake/Output Summary: (Last 24 hours) Intake/Output Summary (Last 24 hours) at 02/24/2023 0729 Last data filed at 02/24/2023 0703 Gross per 24 hour Intake 1637 ml Output 1500 ml Net 137 ml Physical Exam: ECOG performance status is 3, Capable of only limited selfcare, confined to bed or chair more than 50% of waking hours Vital signs and nursing notes reviewed General: Alert, oriented, no distress. Eyes: conjunctiva clear, pupils equal ENT: mucous membranes moist, no mucositis noted. Dentures in place CV: irregular rhythm, no murmur, 1+ LE edema Pulm: no accessory muscle use, bibasilar crackles, on room air Abd: Soft, Nontender, Nondistended, no abnormal organ enlargement/mass Ext: No joint deformities or swelling, normal range of motion Derm: no rashes, petechiae Psych: No anxiety noted Lab Review: CBC w diff Lab Results Component Value Date/Time WBC 10.7 02/24/2023 03:18 AM RBC 2.39 (L) 02/24/2023 03:18 AM HGB 8.3 (L) 02/24/2023 03:18 AM HCT 23.6 (L) 02/24/2023 03:18 AM MCV 98.7 02/24/2023 03:18 AM MCH 34.8 (H) 02/24/2023 03:18 AM MCHC 35.2 02/24/2023 03:18 AM RDW 18.5 (H) 02/24/2023 03:18 AM PLTCT 15 (LL) 02/24/2023 03:18 AM MPV 8.5 02/24/2023 03:18 AM Lab Results Component Value Date/Time ANC 1.50 (L) 02/24/2023 03:18 AM Comprehensive Metabolic Profile Lab Results Component Value Date/Time NA 138 02/24/2023 03:18 AM K 3.7 02/24/2023 03:18 AM CL 105 02/24/2023 03:18 AM CO2 25 02/24/2023 03:18 AM GAP 8 02/24/2023 03:18 AM BUN 31 (H) 02/24/2023 03:18 AM CR 1.14 02/24/2023 03:18 AM GLU 137 (H) 02/24/2023 03:18 AM Lab Results Component Value Date/Time CA 8.3 (L) 02/24/2023 03:18 AM PO4 2.4 02/24/2023 03:18 AM ALBUMIN 3.0 (L) 02/24/2023 03:18 AM TOTPROT 5.4 (L) 02/24/2023 03:18 AM ALKPHOS 61 02/24/2023 03:18 AM AST 22 02/24/2023 03:18 AM ALT 16 02/24/2023 03:18 AM TOTBILI 1.7 (H) 02/24/2023 03:18 AM Radiology Review: Pertinent radiology reviewed and discussed in assessment and plan. Yevgeniy Madrid DO * Laura Conte, OT - 02/23/2023 3:04 PM CDT OCCUPATIONAL THERAPY PROGRESS NOTE Name: Braulio López : 1940 Age: 82 y.o. Admission Date: 02/13/2023 LOS: 10 days Date of Service: 02/23/2023 Mobility Patient Turn/Position: Chair;Refused Progressive Mobility Level: Active transfer to chair Level of Assistance: Assist X2 Assistive Device: Hand Held (recommend teodoro gibbons vs REYMUNDO kearns RN pending fatigue) Activity Limited By: Weakness Subjective Pertinent Dx per Physician: PMH: hypertension, hyperlipidemia, ODETTE on CPAP DM, chronic back pain with sacral stimulator PAF, GERD, BPH- admit from OSH due to concern for new acute leukemia diagnosis Precautions: Standard;Falls Pain / Complaints: Patient agrees to participate in therapy;Patient demonstrates no signs of pain Comments: Patient in bed upon therapist arrival, up tobedside chair with needs m et and precautions in place upon therapist exit. Objective Psychosocial Status: Participates in Therapy with Encouragement Persons Present: RehabTechnician;Spouse Home Living Type of Home: House Home Layout: Able to Live on Main Level w/Bedrm/Bathrm Access Bathroom Shower / Tub: Tub/Shower Unit Home Equipment: Cane Comment: pt has been sleeping in lift chair downstairs and going upstairs 1x/wee k for shower due to fatigue and difficulty navigating stairs Prior Function Level Of Weber: Independent with ADLs and functional transfers Lives With: Spouse Other Function Comments: spouse assists with IADL and provides supervision to in termittent assist with ADL as needed Vision ADL's Toileting Assist: Total Assist Comment: external catheter in place but had leaked d/t disconnect from suction. Required assist x1 for steadying and 2nd perosn assist for hygiene and changing sheets. ADL Mobility Bed Mobility: Supine to Sit: Moderate assist;of 1st person;Minimal assist;of 2nd person Bed Mobility Comments: does not sleep in bed at home. Transfer Type: Sit to/from stand;Stand pivot Transfer: Assistance Level: Bed;To;Bedside chair;Minimal assist;x2 people Transfer: Assistive Device: Hand hold assist Transfer: Type of Assistance: For safety considerations;For strength deficit End of Activity Status: Up in chair;Instructed patient to request assist with mo bility;Instructed patient to use call light Transfer Comments: increased fatigue reported this date requiring increased assi st, cues not to sit prematurely, poor eccentric control. OT Exercise Activity Tolerance Endurance: 2/5 Tolerates 10-20 Minutes Exercise w/Multiple Rests Cognition Cognition Comment: appears to have worsened delayed processing this date, at tae es not even responding to therapist but does follow commands. ROM Edema RLE Edema: Mild edema LLE Edema: Mild edema Sensory Splints/Slings UE Strength / Tone Strength Comments: proximal muscle weakness Education Persons Educated: Patient Interventions: Repetition of Instructions Teaching Methods: Verbal Instruction Patient Response: Return Demonstration Topics: Role of OT, Goals for Therapy Goal Formulation: With Patient Assessment Assessment: Decreased ADL Status;Decreased Endurance;Decreased Self-Care Trans;N on-Functional R UE Prognosis: Good;w/Cont OT s/p Acute Discharge Goal Formulation: Patient Comments: .pmw AM-PAC 6 Clicks Daily Activity Inpatient Putting on and taking off regular lower body clothes: Total Bathing (Including washing, rinsing, drying): A Lot Toileting, which includes using toilet, bedpan, or urinal: Total Putting on and taking off regular upper body clothing: A Little Taking care of personal grooming such as brushing teeth: None Eating meals: None Daily Activity Raw Score: 15 Standardized (T-scale) Score: 34.69 Plan Progress: Slow Progress, Decreased Activity Tolerance OT Frequency: 5x/week OT Plan for Next Visit: pivot transfers w RW, stnading tolerance, proximal stren gthening. Further Evaluation Goals ADL Goals Patient Will Perform All ADL's: w/ Stand By Assist Functional Transfer Goals Pt Will Perform All Functional Transfers: w/ Stand By Assist Arm Goals Vision Goals OT Discharge Recommendations Recommendation: Inpatient setting Patient Currently Requires Physical Assist With: All mobility;All personal care ADLs;All home functioning ADLs Patient demonstrating functional decline at this time. Hopeful to continue to pr ogress for home d/c but at current status spouse reports she could not provide a ssist at home and would require inpatient. Therapist: DARIEL Jimenes/Janis [id number] Date: 02/23/2023 * Kaci Gallardo RN - 02/23/2023 1:08 PM CDT CHEMO NOTE Verified chemo consent signed and in chart. BSA and dose double checked (agree with orders as written) with: yes Virgen bowman RN Labs/applicable tests checked: CBC and Comprehensive Metabolic Panel (CMP) withi n acceptable limits. Chemo regimen: D7 azaCITIDine (VIDAZA) injection 162.5 mg [[id number]] Ordered Dose: 75 mg/m2 2.2 m2 (Treatment Plan Recorded) Route: Subcutaneous F requency: ONCE Armband double check with second RN: yes Patient education offered and stated understanding. Denies questions at this tae e. * Suraj Dhaliwal, PT - 02/23/2023 11:30 AM CDT PHYSICAL THERAPY PROGRESS NOTE Name: Braulio López : 1940 Age: 82 y.o. Admission Date: 02/13/2023 LOS: 10 days Date of Service: 02/23/2023 Mobility Patient Turn/Position: Supine Progressive Mobility Level: Stand Level of Assistance: Assist X1 Assistive Device: Walker Activity Limited By: Change in vital signs;Weakness;Fatigue Subjective Significant hospital events: 82 y.o. male with past medical history hypertension , hyperlipidemia, ODETTE on CPAP DM, chronic back pain with sacral stimulator PAF , GERD, BPH presents from OSH due to concern for new acute leukemia diagnosis Mental / Cognitive Status: Alert;Oriented;Cooperative;Follows Commands Persons Present: RehabTechnician;Family;Nursing Staff Pain: Patient does not rate pain (Chronic back pain) Pain Location: Back Pain Description: Aching Pain Interventions: Treatment altered to patient's pain tolerance;Patient assist ed into position of comfort Comments: Pt very lethargic upon arrival, difficulty maintaining eyes open Comments: L O2 upon arrival-titrated down to RA with activity Ambulation Assist: Independent Mobility in Community with Device;Independent Mob ility in Community with Endurance Limitations Patient Owned Equipment: Single Point Cane;4-Wheeled Walker;Lift Chair Home Situation: Lives with Family;Receives Assistance from Family () Type of Home: House Entry Stairs: No Stairs In-Home Stairs: 1-2 Flights of Stairs;Able to Live on One Level Comments: Spouse completes all IADLs, and intermittently assists with IADLs such as being standby during showers, but patient reports typically able to dress se lf. Has become more difficult lately. Patient sleeps on main level in his lift c hair, and negotiates upstairs to bathroom 1x/wk for shower. Patient reports this has been the case for several months as he has been too fatigued to climb the s tairs. Bed Mobility/Transfer Bed Mobility: Supine to Sit: Moderate Assist;of 1st Person;Minimal Assist;of 2nd Person;Head of Bed Elevated;Requires Extra Time (Once upright, able to scoot hi ps towards EOB without extra help) Bed Mobility: Sit to Supine: Moderate Assist;of 1st person;Minimal Assist;of 2nd person;Verbal Cues;Bed Flat;Use of Rail;Assist with B LE;Assist with Trunk Transfer Type: Sit to/from Stand Transfer: Assistance Level: To/From;Bed;Moderate Assist;x2 People (x2 times) Transfer: Assistive Device: Roller Walker Transfers: Type Of Assistance: For Safety Considerations;Requires Extra Time;For Balance;For Strength Deficit;Elevated Bed;Verbal Cues End Of Activity Status: In Bed;Nursing Notified;Instructed Patient to Request As sist with Mobility;Instructed Patient to Use Call Light Comments: Pt lethargic upon arrival and throughout session- patient unable to ma intaining sitting posture without min-Ax1. Pt c/o dizziness in seated position e xacerbated with standing Balance Sitting Balance: Minimal Assist;Moderate Assist;Static Sitting Balance;2 UE Supp ort Standing Balance: Static Standing Balance;2 UE support;Minimal Assist;x2 People Comments: Pt c/o dizziness in standing position- HR and SpO2 WNL, but telemetery giving irregular HR alert. Pt does not c/o heart palpitations or chest pain. Sy mptoms alleviated in sitting and supine position Gait Comments: Pt unable to ambulate at this time Activity/Exercise August In Place Repetitions: 02 September In Assist: Verbal Cues;Minimal Assist Education Persons Educated: Patient Patient Barriers To Learning: None Noted Interventions: Repetition of Instructions Teaching Methods: Verbal Instruction Patient Response: Verbalized Understanding Topics: Plan/Goals of PT Interventions;Mobility Progression;Importance of Increa sing Activity;Recommend Continued Therapy;Safety Awareness Assessment/Progress Impaired Mobility Due To: Deconditioning;Medical Status Limitation;Decreased Act ivity Tolerance;Decreased Strength;Impaired Balance Impaired Strength Due To: Medical Status Limitation;Decreased Activity Tolerance ;Deconditioning Assessment/Progress: Progressing Toward Goals Comments: Pt tolerated therapy fait. Pt was able to sit EOB and stand with diana t of two, but was not appropriate to ambulate at this time. Pt c/o dizziness dur ing standing and unable to stand longer than 40 seconds at a time. Pt more edmond rgic during therapy requiring extra time and cueing throughout session. Pt will continue to follow and work with the patient to provide interventions as indicat ed AM-PAC 6 Clicks Basic Mobility Inpatient Turning from your back to your side while in a flat bed without using bed rails: A lot Moving from lying on your back to sitting on the side of a flat bed without usin g bedrails : A Lot Moving to and from a bed to a chair (including a wheelchair): A Lot Standing up from a chair using your arms (e.g. wheelchair, or bedside chair): A Lot To walk in hospital room: Total Climbing 3-5 steps with a railing: Total Basic Mobility Inpatient Raw Score: 10 Standardized (T-scale) Score: 28.13 AM-[facility] Basic Mobility Functional Stage: 34-51 Limited Mobility Indoors Goals Goal Formulation: With Patient Time For Goal Achievement: 7 days Patient Will Go Supine To/From Sit: Independently, Ongoing Patient Will Transfer Bed/Chair: Independently, Ongoing Patient Will Transfer Sit to Stand: w/ Stand By Assist, Met Patient Will Ambulate: Greater than 200 Feet, w/ Walker, w/ Stand By Assist, [place] oing Patient Will Go Up / Down Stairs: 1-2 Flights, w/ Stand By Assist, Ongoing Plan Treatment Interventions: Mobility Training;Strengthening;Balance Activities;Endu bhavesh Training Plan Frequency: 5 Days per Week PT Plan for Next Visit: Recommend Ax2 (starting to decline?); sit/stands and pro twan gait as able w/ chair follow. PT Discharge Recommendations Recommendation: Inpatient setting (Anticipate d/c home but starting to have func itonal decline; will update recs as appropriate.) Recommendation for Therapy Post Discharge: Home health Patient Currently Requires Equipment: Owns what is needed Therapist: Suraj Dhaliwal, PT Date: 02/23/2023 * eYvgeniy Madrid, DO - 02/23/2023 8:21 AM CDT Acute Leukemia Service Progress Note Today's Date: 02/23/2023 Name: Braulio López Admission Date: 02/13/2023 LOS: LOS: 10 days Assessment/Plan: Principal Problem: Acute myeloid leukemia not having achieved remission (HCC) Active Problems: 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 CGs with -7 PCR: p53 neg, FLT3 neg NGS: pending Referring physician: Dora BOWMAN Chemotherapy plan: Azacitidine, C1D1 02/17/23 Azacitidine C1D7 S/p hydrea Patient wishes to pursue a trial at chemotherapy, is agreeable to start here but hopes to transition his care to Dr. Mame Neri in [place], [place] as soon as he can be stable to discharge. Heme: Monitor CBC for transfusion needs, goal Hgb>8 and platelets >10K Transfusion 02/23/23: None DVT prophylaxis with lovenox unless platelets <50K or signs of DIC Hold LEAD SLOT TECHNICIAN Eliquis 5mg Po BID with thrombocytopenia Hold LEAD SLOT TECHNICIAN ASA 81mg with thrombocytopenia RUE edema and discomfort. US negative INR elevated. Improved s/p vitamin K FEN/Renal: LIANNA: Improving - CT a/p without obstruction. - Potentially due to hypotensive episode: Hypotensive on 02/17pm in setting of fe pat. - Improved with abx and IVF Hyponatremia: monitor Hypophos: replace prn TLS and uric acid monitoring Replace electrolytes per HIGH protocol per cardiology Cont allopurinol Immunocompromised diet Poor po intake. Boost shake supplements. Nutrition consulted. Monitor closely fo r need for enteral nutrition Intermittent. Repeat 40mg IV lasix 02/23 ID: Neutropenic fever, no clear source - Fever on 02/17 - Completing 7 days. ANC 780 today. 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 Increased to 37.5mg BID - Chest pain with exertion with PT: EKG normal, trop normal - proBNP 1459 - Reg stress test: completed 02/16 and low risk for inducible myocardial ischemia - carotid duplex: mild bilateral carotid plaques - Holding LEAD SLOT TECHNICIAN aspirin and Eliquis - Hold LEAD SLOT TECHNICIAN losartan 100mg and chlorthalidone 25mg. Hold LEAD SLOT TECHNICIAN repatha GI: GERD: cont LEAD SLOT TECHNICIAN PPI Constipation: Increase miralax dose. Gave dose of lactulose. Resolved : BPH: Continue dutasteride & Tamsulosin (formulary sub for them to be separate drugs) Continue LEAD SLOT TECHNICIAN oxybutynin Pulm: ODETTE: on CPAP at night Hypoxia: New onset 02/23 am. Checking CXR. Giving lasix Endo: Diabetes Mellitus - d/c FSBS and insulin 02/16 - Hold oral hypoglycemics. Holding januvia and plan to d/c at discharge - Hgb A1c 5, so with weight loss LEAD SLOT TECHNICIAN likely no longer needs therapy at this time MSK: Low back pain: sacral nerve stimulator in place up until October 2022 when had 3rd b ack surgery, during which time was removed Derm: Unstageable sacral wound, wound care rec A & D Abrasion Left first castro, monitor Psych: Monitor and offer support as needed. Code status: DNAR-Full Intervention (last reviewed 02/16) Yevgeniy Madrid DO Hematologic Malignancies and Cellular Therapeutics Available by Voalte and AMS Connect After hours coverage first call via Cooperative Education Coordinator 8pm to 8am: pager [phone] | Voalte "Med Private 6" Subjective: Braulio López is a 82 y.o. male. More fatigued today. Drank 3 prot ein shakes today. Currently on nasal cannula. No palpitations, dyspnea or chest pain or cough. No overt bleeding. Objective: Medications: Scheduled Meds:acyclovir (ZOVIRAX) tablet 400 mg, 400 mg, Oral, BID allopurinoL (ZYLOPRIM) tablet 300 mg, 300 mg, Oral, QDAY azaCITIDine (VIDAZA) injection 162.5 mg, 75 mg/m2 (Treatment Plan Recorded), Sub cutaneous, ONCE cefepime (MAXIPIME) 2 g in sodium chloride 0.9% (NS) 100 mL IVPB (MB+)(EXTENDED INFUSION), 2 g, Intravenous, Q12H* CHOLEcalciferoL (vitamin D3) tablet 1,000 Units, 1,000 Units, Oral, BID cyanocobalamin (vitamin B-12) tablet 1,000 mcg, 1,000 mcg, Oral, QDAY dutasteride (AVODART) capsule 0.5 mg, 0.5 mg, Oral, QDAY w/dinner And tamsulosin (FLOMAX) capsule 0.4 mg, 0.4 mg, Oral, QDAY w/dinner metoprolol tartrate tablet 37.5 mg, 37.5 mg, Oral, BID ondansetron (ZOFRAN ODT) rapid dissolve tablet 16 mg, 16 mg, Oral, ONCE oxybutynin XL (DITROPAN XL) tablet 15 mg, 15 mg, Oral, QDAY pantoprazole DR (PROTONIX) tablet 40 mg, 40 mg, Oral, QDAY(21) polyethylene glycol 3350 (MIRALAX) packet 17 g, 1 packet, Oral, BID posaconazole EC (NOXAFIL) tablet 300 mg, 300 mg, Oral, QDAY w/breakfast sodium chloride PF 0.9% flush 10-20 mL, 10-20 mL, Flush, FLUSH Daily Continuous Infusions: PRN and Respiratory Meds:acetaminophen Q6H PRN, magnesium sulfate 4 g/50 mL PRN, melatonin QHS PRN, potassium chloride in water PRN (Duplicating Machine Operator from Rx) OR pot assium chloride SR PRN (Duplicating Machine Operator from Rx), sodium chloride 0.9 % TKO infusion PRN , sodium chloride irrigation PRN Vital Signs: Last Filed Vital Signs: 24 Hour Ra nge BP: 126/66 (02/23 747) Temp: 36.8 C (98.2 F) (02/23 747) Pulse: 75 (02/23 747) Respirations: 20 PER MINUTE (02/23 747) SpO2: 93 % (02/23 747) O2 Device: None (Room air) (02/23 747) BP: (126-154)/(56-85) Temp: [36.7 C (98.1 F)-37.5 C (99.5 F)] Pulse: [75-92] Respirations: [16 PER MINUTE-22 PER MINUTE] SpO2: [92 %-98 %] O2 Device: None (Room air) Intensity Pain Scale (Self Report): 5 Vitals: 02/20/23 1800 02/21/23 1400 02/22/23 0837 Weight: 99.5 kg (219 lb 6.4 oz) 98.8 kg (217 lb 12.8 oz) 97.5 kg (215 lb) Intake/Output Summary: (Last 24 hours) Intake/Output Summary (Last 24 hours) at 02/23/2023 0821 Last data filed at 02/23/2023 0545 Gross per 24 hour Intake 1250 ml Output 900 ml Net 350 ml Physical Exam: ECOG performance status is 3, Capable of only limited selfcare, confined to bed or chair more than 50% of waking hours Vital signs and nursing notes reviewed General: Alert, oriented, no distress. Eyes: conjunctiva clear, pupils equal ENT: mucous membranes moist, no mucositis noted. Dentures in place CV: irregular rhythm, no murmur, 1+ LE edema Pulm: no accessory muscle use, bibasilar crackles, on 1L nc Abd: Soft, Nontender, Nondistended, no abnormal organ enlargement/mass Ext: No joint deformities or swelling, normal range of motion Derm: no rashes, petechiae Psych: No anxiety noted Lab Review: CBC w diff Lab Results Component Value Date/Time WBC 11.2 (H) 02/23/2023 04:08 AM RBC 2.53 (L) 02/23/2023 04:08 AM HGB 8.6 (L) 02/23/2023 04:08 AM HCT 24.7 (L) 02/23/2023 04:08 AM MCV 97.9 02/23/2023 04:08 AM MCH 34.0 02/23/2023 04:08 AM MCHC 34.7 02/23/2023 04:08 AM RDW 18.8 (H) 02/23/2023 04:08 AM PLTCT 18 (LL) 02/23/2023 04:08 AM MPV 8.6 02/23/2023 04:08 AM Lab Results Component Value Date/Time ANC 0.78 (L) 02/23/2023 04:08 AM Comprehensive Metabolic Profile Lab Results Component Value Date/Time NA 136 (L) 02/23/2023 04:08 AM K 4.2 02/23/2023 04:08 AM CL 106 02/23/2023 04:08 AM CO2 24 02/23/2023 04:08 AM GAP 6 02/23/2023 04:08 AM BUN 30 (H) 02/23/2023 04:08 AM CR 1.14 02/23/2023 04:08 AM GLU 178 (H) 02/23/2023 04:08 AM Lab Results Component Value Date/Time CA 8.7 02/23/2023 04:08 AM PO4 1.3 (LL) 02/23/2023 04:08 AM ALBUMIN 3.2 (L) 02/23/2023 04:08 AM TOTPROT 5.8 (L) 02/23/2023 04:08 AM ALKPHOS 69 02/23/2023 04:08 AM AST 25 02/23/2023 04:08 AM ALT 15 02/23/2023 04:08 AM TOTBILI 1.6 (H) 02/23/2023 04:08 AM Radiology Review: Pertinent radiology reviewed and discussed in assessment and plan. Yevgeniy Madrid DO * Juany Fernandez RN - 02/23/2023 6:10 AM CDT Day [id number] Pain:Chronic lumbar back pain - no request for medication Nutrition: Sleeping tonight GI/:Voids with urinal - LB -02/21 Activity:Q2 turns throughout the night New Events or Follow-up: No need for replacements today * Abdiaziz Tabor RN - 02/22/2023 6:50 PM CDT Day [id number] Pain: Chronic lumbar back pain Nutrition: Took all 3 meals with protein shake with each meal GI/: Voids with urinal - no BM today Activity: Up x2 with walker and gait belt - weaker today than yesterday per at bedside New Events or Follow-up: Encourage turns and educated on importance of turns to prevent worsening pressure injury * Anjelica Valentine RD - 02/22/2023 2:37 PM CDT CLINICAL NUTRITION Clinical Nutrition Follow-Up Assessment Name: Braulio López : 1940 Age: 82 y.o. Admission Date: 02/13/2023 LOS: 9 days Date of Service: 02/22/2023 Recommendation: Continue immunosuppressed diet. Please remind/encourage pt to make PO attempt s TID. Please provide on-unit protein shakes TID (made with Boost Plus + 2x Beneprot ein powder + ice cream). Avoid skipped meals. If not medically contraindicated, recommend trailing an appetite stimulant (R emeron or Marinol per MD discretion). With ongoing inadequate intakes and pt meeting malnutrition criteria, if unab le to demonstrate increased PO intakes over next 48 hours (by 02/24) and if consis tent with nutrition goals of care, recommend initiating nutrition support (EN pr eferred). Please consult/contact RD for recs if proceeding. Comments: 82 y.o. male with PMH HTN, HLD, ODETTE, DM, PAF, and GERD, admitted with new dx AML . Started on Azacitidine, currently C1D6. Clinical nutrition following through a dmit with pt at-risk and meeting malnutrition criteria. At 02/20 visit pt part icipated in nutrition goal setting as follows: Order a breakfast meal each morni ng with protein sources; Request an on-unit high protein shake at lunchtime; At dinner either order a meal from room service, or request an on-unit high protein shake. Additional snacks as tolerated. At 02/22 follow up pt reports limited PO intakes. States he tolerated bites of scrambled eggs this morning and drank B oost. Sipping protein shake for lunch at time of visit. States overall no change in appetite and difficulty pushing PO intakes. Denies GI distress (previous con stipation resolved after lactulose). RD shared concern for inadequate nutrition intake and gently discussed topic of nutrition support with EN. Pt and spouse asked appropriate questions; they expre ss understanding of benefits of EN support though at this time would like to pus h for PO intakes. RD reviewed PO intake demands to satisfy increased needs. Pt f eels visual checklist for PO attempts on whiteboard in room may be helpful for m otivation - RD wrote checklist on board for protein shakes TID. Provided additio nal on-unit snack menu and encouraged pt to include intentional snacking between shake attempts. Pt and spouse voice understanding of recommendations and deny f urther questions. Will continue to follow. Nutrition Assessment of Patient: Admit Weight: 95.5 kg (source unknown; first standing 95.3kg); Weight Change Sin ce Admit: +2kg (+1.5L net I/O) BMI (Calculated): 28.48; BMI Categories Adult: Over Weight: 25-29.9 Pertinent Allergies/Intolerances: none Pertinent Labs: Plt 24, WBC 11.2, ANC 0.78, BUN 28, Glu 129, tBili 1.8; Pertinen t Meds: daily vitamin D3, vitamin B12, zofran, protonix, miralax; Unintentional Weight Loss: 10% in 6 months (significant) (per outside records) Oral Diet Order: Immunosuppressed; Current Oral Intake: Inadequate Estimated Calorie Needs: 6682-8300 (30-32 kcal/kg DBW) Estimated Protein Needs: 100-125 (1.2-1.5 gm/kg DBW) Malnutrition Assessment: Malnutrition present on admission ICD-10 code E44: Chronic illness/Moderate non-severe malnutrition Energy intake: Less than 75% of estimated energy requirement for 1 month or more, Weight loss: 10% x 6 months Malnutrition Interventions: Assisted in nutrition intake goal setting; Protein s hakes TID and additional high protein meals/snacks Nutrition Focused Physical Assessment: Loss of Subcutaneous Fat: (pending per pt request); ; Muscle Wasting: (pending per pt request); ; Edema: Yes; Severity: Moderate; Location: Lower extremities Pressure Injury: stage 1 coccyx;sacrum Comment: +BM 02/20 Nutrition Diagnosis: Inadequate protein-energy intake Etiology: poor appetite Signs & Symptoms: pt reported intakes in setting of new AML Intervention / Plan: Education/goal setting to optimize kcal/protien intake; discussion of EN potenti al Monitor intake/adequacy/tolerance, wt trends, labs, meds, GI status, I/Os Goals: Patient to consume >50% of meals/supplements Time Frame: Within 72 hours Status: Not met;Ongoing Anjelica Valentine MS, RDN, LD Clinical Dietitian - Department of Clinical Nutrition Available on Voalte * Denny Gonzáles RN - 02/22/2023 1:28 PM CDT CHEMO NOTE Verified chemo consent signed and in chart. Blood return positive via: NA, SubQ Injection RUQ, LUQ BSA and dose double checked (agree with orders as written) with: yes Fabian Barraza RN Chemo certified Labs/applicable tests checked: Basic Metabolic Panel (BMP) and Comprehensive Met abolic Panel (CMP) Chemo regimen: C1D4 azaCITIDine (VIDAZA) injection 162.5 mg [[id number]] Ordered Dose: 75 mg/m2 2.2 m2 (Treatment Plan Recorded) Route: Subcutaneous F requency: ONCE Dose Calculation Information: Stability: 8 Hours 75 mg/m2 2.2 m2 (BSA based on [Treatment plan recorded weight: 95.2 kg as of 02/16/2023] [Height: 182.9 cm as of 02/15/2023]) = 162.5 mg (rounded to the nearest 12.5 mg from 165 mg) = 162.5 mg 4 mL/100 mg = 6.5 mL 100 mg/4 mL = 162.5 mg Admin Dose:162.5 mg Rate verified and armband double check with second RN: yes Patient education offered and stated understanding. Denies questions at this tae e. * Margo Hopkins, PT - 02/22/2023 11:18 AM CDT PHYSICAL THERAPY PROGRESS NOTE Name: Braulio López : 1940 Age: 82 y.o. Admission Date: 02/13/2023 LOS: 9 days Date of Service: 02/22/2023 Mobility Patient Turn/Position: Chair Progressive Mobility Level: Walk in room Distance Walked (feet): 25 ft Level of Assistance: Assist X2 Assistive Device: Walker Subjective Significant hospital events: 82 y.o. male with past medical history hypertension , hyperlipidemia, ODETTE on CPAP DM, chronic back pain with sacral stimulator PAF , GERD, BPH presents from OSH due to concern for new acute leukemia diagnosis Persons Present: RehabTechnician;Family Pain: Patient does not rate pain (Chronic back pain) Pain Interventions: Treatment altered to patient's pain tolerance;Patient assist ed into position of comfort Ambulation Assist: Independent Mobility in Community with Device;Independent Mob ility in Community with Endurance Limitations Patient Owned Equipment: Single Point Cane;4-Wheeled Walker;Lift Chair Home Situation: Lives with Family;Receives Assistance from Family () Type of Home: House Entry Stairs: No Stairs In-Home Stairs: 1-2 Flights of Stairs;Able to Live on One Level Comments: Spouse completes all IADLs, and intermittently assists with IADLs such as being standby during showers, but patient reports typically able to dress se lf. Has become more difficult lately. Patient sleeps on main level in his lift c hair, and negotiates upstairs to bathroom 1x/wk for shower. Patient reports this has been the case for several months as he has been too fatigued to climb the s tairs. Bed Mobility/Transfer Bed Mobility: Supine to Sit: Moderate Assist;of 1st Person;Minimal Assist;of 2nd Person;Head of Bed Elevated;Requires Extra Time (Once upright, able to scoot hi ps towards EOB without extra help) Transfer Type: Sit to/from Stand Transfer: Assistance Level: Bed;To;Bed Side Chair;Minimal Assist;x2 People Transfer: Assistive Device: Roller Walker Gait Gait Distance: 25 feet Gait: Assistance Level: Minimal Assist;of 1st person;Safety Considerations;of 2n d person Gait: Assistive Device: Roller Walker Gait: Descriptors: Forward trunk flexion;Decreased step length Comments: Declined further distance due to fatigue; denies pain be limiting fact or. Assessment/Progress Impaired Mobility Due To: Deconditioning;Medical Status Limitation;Decreased Act ivity Tolerance;Decreased Strength;Impaired Balance Assessment/Progress: Progressing Toward Goals Comments: Tolerating short distance gait with RW. Remains motivated, but reqpor ts notable fatigue and pain. Recommend Ax2 at this time due to functional decli ne, but anticipate progress with ongoing PT. AM-PAC 6 Clicks Basic Mobility Inpatient Turning from your back to your side while in a flat bed without using bed rails: A lot Moving from lying on your back to sitting on the side of a flat bed without usin g bedrails : Total Moving to and from a bed to a chair (including a wheelchair): A Lot Standing up from a chair using your arms (e.g. wheelchair, or bedside chair): A Lot To walk in hospital room: A Lot Climbing 3-5 steps with a railing: Total Basic Mobility Inpatient Raw Score: 10 Standardized (T-scale) Score: 28.13 AM-PAC Basic Mobility Functional Stage: 34-51 Limited Mobility Indoors Goals Goal Formulation: With Patient Time For Goal Achievement: 7 days Patient Will Go Supine To/From Sit: Independently, Ongoing Patient Will Transfer Bed/Chair: Independently, Ongoing Patient Will Transfer Sit to Stand: w/ Stand By Assist, Met Patient Will Ambulate: Greater than 200 Feet, w/ Walker, w/ Stand By Assist, [place] oing Patient Will Go Up / Down Stairs: 1-2 Flights, w/ Stand By Assist, Ongoing Plan Treatment Interventions: Mobility Training;Strengthening;Balance Activities;Endu bhavesh Training Plan Frequency: 5 Days per Week PT Plan for Next Visit: Recommend Ax2 (starting to decline?); sit/stands and pro twan gait as able w/ chair follow. PT Discharge Recommendations Recommendation: Currently patient requires inpatient level of care. However, typ ical progression for patient condition would anticipate home with assistance at time of discharge. 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 Type 2 diabetes mellitus (HCC) Essential (primary) hypertension Gastro-esophageal reflux disease without esophagitis Hyperlipidemia Longstanding persistent atrial fibrillation (HCC) Moderate malnutrition (HCC) Constipation Primary diagnosis: Acute Myeloid Leukemia Cytogenetics/FISH: FISH negative for CBF aml and -17, conventional CG pending [id number]: negative NGS: pending Referring physician: Via [facility] Chemotherapy plan: Azacitidine, C1D1 02/17/23 Azacitidine C1D6 S/p hydrea Patient wishes to pursue a trial at chemotherapy, is agreeable to start here but hopes to transition his care to Dr. Mame Neri in [place], [place] as soon as he can be stable to discharge. Heme: Monitor CBC for transfusion needs, goal Hgb>8 and platelets >10K Monitor DIC panel Transfusion 02/22/23: None DVT prophylaxis with lovenox unless platelets <50K or signs of DIC Hold LEAD SLOT TECHNICIAN Eliquis 5mg Po BID with thrombocytopenia Hold LEAD SLOT TECHNICIAN ASA 81mg with thrombocytopenia RUE edema and discomfort. US negative INR elevated. Mixing study nearly corrects. Giving po vitamin K. Improving FEN/Renal: LIANNA: Improving - CT a/p without obstruction. - Potentially due to hypotensive episode: Hypotensive on 8pm in setting of fe pat. - Improved with abx and IVF Hyponatremia: monitor TLS and uric acid monitoring Replace electrolytes per HIGH protocol per cardiology Cont allopurinol Immunocompromised diet Poor po intake. Boost shake supplements. Nutrition consulted S/p intermittent lasix ID: Neutropenic fever - Fever on 02/17 - Started cefepime. 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 Increased t o 37.5mg BID - Chest pain with exertion with PT: EKG normal, trop normal - proBNP 1459 - Reg stress test: completed 02/16 and low risk for inducible myocardial ischemia - carotid duplex: mild bilateral carotid plaques - Holding LEAD SLOT TECHNICIAN aspirin and Eliquis - Hold LEAD SLOT TECHNICIAN losartan 100mg and chlorthalidone 25mg. Hold LEAD SLOT TECHNICIAN repatha - Afib with RVR in setting of fever on 02/17. S/p IV metoprolol GI: GERD: cont LEAD SLOT TECHNICIAN PPI Constipation: Increase miralax dose. Gave dose of lactulose. Resolved : BPH: Continue dutasteride & Tamsulosin (formulary sub for them to be separate drugs) Continue LEAD SLOT TECHNICIAN oxybutynin Pulm: ODETTE: on CPAP at night Endo: Diabetes Mellitus FSBS not requiring LDCF, d/c FSBS and insulin 02/16 Hold oral hypoglycemics. Holding januvia and plan to d/c at discharge Hgb A1c 5, so with weight loss LEAD SLOT TECHNICIAN likely no longer needs therapy at this time MSK: Low back pain: sacral nerve stimulator in place up until October 2022 when had 3rd b ack surgery, during which time was removed Derm: Unstageable sacral wound, wound care rec A & D Abrasion Left first castro, monitor Psych: Monitor and offer support as needed. Code status: DNAR-Full Intervention (last reviewed 02/16) Disposition: Earliest discharge D7 of azacitidine. Likely here longer. Yevgeniy Madrid DO Hematologic Malignancies and Cellular Therapeutics Available by Voalte and AMS Connect After hours coverage first call via Cooperative Education Coordinator 8pm to 8am: pager [phone] | Voalte "Med Private 6" Subjective: Braulio López is a 82 y.o. male. Had about 2 protein shakes yester day. Still quite fatigued. No palpitations, dyspnea or chest pain or cough. No o vert bleeding. Objective: Medications: Scheduled Meds:acyclovir (ZOVIRAX) tablet 400 mg, 400 mg, Oral, BID allopurinoL (ZYLOPRIM) tablet 300 mg, 300 mg, Oral, QDAY azaCITIDine (VIDAZA) injection 162.5 mg, 75 mg/m2 (Treatment Plan Recorded), Sub cutaneous, ONCE cefepime (MAXIPIME) 2 g in sodium chloride 0.9% (NS) 100 mL IVPB (MB+)(EXTENDED INFUSION), 2 g, Intravenous, Q12H* CHOLEcalciferoL (vitamin D3) tablet 1,000 Units, 1,000 Units, Oral, BID cyanocobalamin (vitamin B-12) tablet 1,000 mcg, 1,000 mcg, Oral, QDAY dutasteride (AVODART) capsule 0.5 mg, 0.5 mg, Oral, QDAY w/dinner And tamsulosin (FLOMAX) capsule 0.4 mg, 0.4 mg, Oral, QDAY w/dinner metoprolol tartrate tablet 37.5 mg, 37.5 mg, Oral, BID ondansetron (ZOFRAN ODT) rapid dissolve tablet 16 mg, 16 mg, Oral, ONCE oxybutynin XL (DITROPAN XL) tablet 15 mg, 15 mg, Oral, QDAY pantoprazole DR (PROTONIX) tablet 40 mg, 40 mg, Oral, QDAY(21) phytonadione (vitamin K1) tablet 10 mg, 10 mg, Oral, QDAY polyethylene glycol 3350 (MIRALAX) packet 17 g, 1 packet, Oral, BID posaconazole EC (NOXAFIL) tablet 300 mg, 300 mg, Oral, QDAY w/breakfast sodium chloride PF 0.9% flush 10-20 mL, 10-20 mL, Flush, FLUSH Daily Continuous Infusions: PRN and Respiratory Meds:acetaminophen Q6H PRN, magnesium sulfate 4 g/50 mL PRN, melatonin QHS PRN, potassium chloride in water PRN (Duplicating Machine Operator from Rx) OR pot assium chloride SR PRN (Duplicating Machine Operator from Rx), sodium chloride 0.9 % TKO infusion PRN , sodium chloride irrigation PRN Vital Signs: Last Filed Vital Signs: 24 Hour Ra padillae BP: 123/60 (02/22 401) Temp: 37.1 C (98.7 F) (02/22 401) Pulse: 87 (02/22 401) Respirations: 20 PER MINUTE (02/22 401) SpO2: 94 % (02/22 401) O2 Device: None (Room air) (02/22 401) BP: (122-147)/(51-66) Temp: [36.7 C (98 F)-37.1 C (98.7 F)] Pulse: [73-102] Respirations: [18 PER MINUTE-20 PER MINUTE] SpO2: [94 %-99 %] O2 Device: None (Room air) Vitals: 02/20/23 1800 02/21/23 1400 02/22/23 0412 Weight: 99.5 kg (219 lb 6.4 oz) 98.8 kg (217 lb 12.8 oz) 106.5 kg (234 lb 12.6 o z) Intake/Output Summary: (Last 24 hours) Intake/Output Summary (Last 24 hours) at 02/22/2023 0630 Last data filed at 02/22/2023 0525 Gross per 24 hour Intake 1214.67 ml Output 1600 ml Net -385.33 ml Physical Exam: ECOG performance status is 3, Capable of only limited selfcare, confined to bed or chair more than 50% of waking hours Vital signs and nursing notes reviewed General: Alert, oriented, no distress. Eyes: conjunctiva clear, pupils equal ENT: mucous membranes moist, no mucositis noted. Dentures in place CV: irregular rhythm, no murmur, 1+ LE edema Pulm: no accessory muscle use, CTAB Abd: Soft, Nontender, Nondistended, no abnormal organ enlargement/mass Ext: No joint deformities or swelling, normal range of motion Derm: no rashes, petechiae Psych: No anxiety noted Lab Review: CBC w diff Lab Results Component Value Date/Time WBC 11.2 (H) 02/22/2023 03:59 AM RBC 2.57 (L) 02/22/2023 03:59 AM HGB 8.7 (L) 02/22/2023 03:59 AM HCT 25.2 (L) 02/22/2023 03:59 AM MCV 97.9 02/22/2023 03:59 AM MCH 33.7 02/22/2023 03:59 AM MCHC 34.4 02/22/2023 03:59 AM RDW 19.8 (H) 02/22/2023 03:59 AM PLTCT 24 (LL) 02/22/2023 03:59 AM MPV 9.1 02/22/2023 03:59 AM Lab Results Component Value Date/Time ANC 1.46 (L) 02/21/2023 03:05 AM Comprehensive Metabolic Profile Lab Results Component Value Date/Time NA 138 02/22/2023 03:59 AM K 4.2 02/22/2023 03:59 AM CL 107 02/22/2023 03:59 AM CO2 24 02/22/2023 03:59 AM GAP 7 02/22/2023 03:59 AM BUN 28 (H) 02/22/2023 03:59 AM CR 1.17 02/22/2023 03:59 AM GLU 129 (H) 02/22/2023 03:59 AM Lab Results Component Value Date/Time CA 8.8 02/22/2023 03:59 AM PO4 2.0 02/22/2023 03:59 AM ALBUMIN 3.3 (L) 02/22/2023 03:59 AM TOTPROT 5.6 (L) 02/22/2023 03:59 AM ALKPHOS 56 02/22/2023 03:59 AM AST 25 02/22/2023 03:59 AM ALT 15 02/22/2023 03:59 AM TOTBILI 1.8 (H) 02/22/2023 03:59 AM Radiology Review: Pertinent radiology reviewed and discussed in assessment and plan. Yevgeniy Madrid DO * Debbie Adams - 02/21/2023 3:[address] Inpatient Onco-Psychology Progress Note Date of Service: 02/21/23 Time of Service: [id number] Location of Service: [id number] HPI: Patient is a 82 y.o. male diagnosed with AML on 02/13/23. Patient was admitt ed for acute AML evaluation and management Summary: Patient was seen bedside and accompanied by for follow up. Patient denied any significant psychiatric symptoms or concerns at this time. He shared that he is "ready to get going" with the treatments and eventually on his way b ack home. He denied any difficulties with sleep or appetite and shared that the nurses have been very helpful. Patient's stated that she has been coping we ll and has been feeling better as they have started to get more answers/plans. N otified patient of fellow's departure and that other onco-psychology providers w ill be available for follow up if needed. Patient was pleasant though declined c ontinued follow up with onco-psychology. Mental Status: Patient oriented X4. Presented with good eye contact and seun ative relational pattern. Attention, speech, motor, thought processes, and thou ght content all within the normal range. Mood was dysthymic with affect consist ent with mood and session content. No suicidal or homicidal ideation endorsed. Insight and judgment good with intact impulse control. Intervention: Reassessed mood and anxiety. Patient was open and polite. Reminde d patient and of onco-psychology services. Diagnostic Impression (Based on DSM 5): Deferred Medical Diagnosis: AML Plan of Care: Onco-psychology will sign off at this time. Patient is aware of on co-psychology services and will contact if outpatient support is needed Debbie Adams, PhD Post-Doctoral Fellow Onco-Psychology Program Find me on Voalte Note: Services and documentation were provided under the supervision of a licens ed psychologist. Associated attestation - Brigida Kwok PSYD - 02/22/2023 8:48 AM CDT I reviewed the case with the post-doctoral fellow, and agree with the conclusion s and treatment plan. Brigida Kwok PsyD Licensed Psychologist Onco-Psychology Program Find me on Voalte * Laura Conte, OT - 02/21/2023 2:10 PM CDT OCCUPATIONAL THERAPY NOTE Name: Braulio López : 1940 Age: 82 y.o. Admission Date: 02/13/2023 LOS: 8 days Date of Service: 02/21/2023 Attempted to see patient for OT at scheduled pm technician time. Patient declines t o participate 2/2 recently returning to bed from chair prior to OT arrival (katherine mckeon with RN). Per discussion with treating PT and patient has endorsed some wo rsened weakness only able to pivot transfer with increased assist this date. Con cern for d/c recs and potentially unable to d/c home. Encouraged patient to cont inue to progress OOB and work with therapy when able. OT will continue to follow and attempt to see later as time allows. Therapist: Laura Conte OTR/L [id number] Date: 02/21/2023 * Ramírez Macedo RN - 02/21/2023 12:59 PM CDT CHEMO NOTE Verified chemo consent signed and in chart. Blood return positive via: NA, SubQ Injection RUQ, LUQ BSA and dose double checked (agree with orders as written) with: yes with Denny Gonzáles RN Chemo certified Labs/applicable tests checked: Basic Metabolic Panel (BMP) and Comprehensive Met abolic Panel (CMP) Chemo regimen: C1D4 azaCITIDine (VIDAZA) injection 162.5 mg [[id number]] Ordered Dose: 75 mg/m2 2.2 m2 (Treatment Plan Recorded) Route: Subcutaneous F requency: ONCE Dose Calculation Information: Stability: 8 Hours 75 mg/m2 2.2 m2 (BSA based on [Treatment plan recorded weight: 95.2 kg as of 02/16/2023] [Height: 182.9 cm as of 02/15/2023]) = 162.5 mg (rounded to the nearest 12.5 mg from 165 mg) = 162.5 mg 4 mL/100 mg = 6.5 mL 100 mg/4 mL = 162.5 mg Admin Dose: 162.5 mg Rate verified and armband double check with second RN: yes Patient education offered and stated understanding. Denies questions at this tae e. * Margo Hopkins, PT - 02/21/2023 9:59 AM CDT PHYSICAL THERAPY PROGRESS NOTE Name: Braulio López : 1940 Age: 82 y.o. Admission Date: 02/13/2023 LOS: 8 days Date of Service: 02/21/2023 Mobility Patient Turn/Position: Chair Progressive Mobility Level: Active transfer to chair Distance Walked (feet): 5 ft Level of Assistance: Assist X2 Assistive Device: Walker Subjective Significant hospital events: 82 y.o. male with past medical history hypertension , hyperlipidemia, ODETTE on CPAP DM, chronic back pain with sacral stimulator PAF , GERD, BPH presents from OSH due to concern for new acute leukemia diagnosis Persons Present: Nursing Staff Pain: Patient has no complaint of pain Pain Interventions: Patient assisted into position of comfort Ambulation Assist: Independent Mobility in Community with Device;Independent Mob ility in Community with Endurance Limitations Patient Owned Equipment: Single Point Cane;4-Wheeled Walker;Lift Chair Home Situation: Lives with Family;Receives Assistance from Family Type of Home: House Entry Stairs: No Stairs In-Home Stairs: 1-2 Flights of Stairs;Able to Live on One Level Comments: Patient lives in [place], [place] in house with spouse. Spouse completes all IADLs, and intermittently assists with IADLs such as being standby during sh owers, but patient reports typically able to dress self. Has become more difficu lt lately. Patient sleeps on main level in his lift chair, and negotiates upstai rs to bathroom 1x/wk for shower. Patient reports this has been the case for gautam ral months as he has been too fatigued to climb the stairs. Bed Mobility/Transfer Bed Mobility: Supine to Sit: Moderate Assist;x2 People;Head of Bed Elevated (Onc e upright, able to scoot hips towards EOB without extra help) Transfer Type: Stand Pivot Transfer: Assistance Level: Bed;To;Commode;Minimal Assist;x2 People Transfer: Assistive Device: Roller Walker Other Transfer Type: Sit to/from Stand Other Transfer: Assistance Level: Commode;To;Bed Side Chair;Minimal Assist;x2 Pe ople Other Transfer: Assistive Device: Roller Walker Gait Gait Distance: 5 feet Gait: Assistance Level: Minimal Assist;of 1st person Gait: Assistive Device: Roller Walker Gait: Descriptors: Forward trunk flexion;Decreased step length Declined further ambulation at this time due to fatigue Assessment/Progress Impaired Mobility Due To: Deconditioning;Medical Status Limitation;Decreased Act ivity Tolerance;Decreased Strength;Impaired Balance Assessment/Progress: Progressing Toward Goals Comments: Per chief of staff, required max Ax2 overnight. Mod x2 for bed mobility thi s session and min x2 for safety with transfers/short distance gait this AM. Rec ommend Ax2 at this time due to functional decline, but anticipate progress with ongoing PT. AM-PAC 6 Clicks Basic Mobility Inpatient Turning from your back to your side while in a flat bed without using bed rails: A lot Moving from lying on your back to sitting on the side of a flat bed without usin g bedrails : Total Moving to and from a bed to a chair (including a wheelchair): A Lot Standing up from a chair using your arms (e.g. wheelchair, or bedside chair): A Lot To walk in hospital room: A Lot Climbing 3-5 steps with a railing: Total Basic Mobility Inpatient Raw Score: 10 Standardized (T-scale) Score: 28.13 AM-PAC Basic Mobility Functional Stage: 34-51 Limited Mobility Indoors Goals Goal Formulation: With Patient Time For Goal Achievement: 7 days Patient Will Go Supine To/From Sit: Independently, Ongoing Patient Will Transfer Bed/Chair: Independently, Ongoing Patient Will Transfer Sit to Stand: w/ Stand By Assist, Met Patient Will Ambulate: Greater than 200 Feet, w/ Walker, w/ Stand By Assist, [place] oing Patient Will Go Up / Down Stairs: 1-2 Flights, w/ Stand By Assist, Ongoing Plan Treatment Interventions: Mobility Training;Strengthening;Balance Activities;Endu bhavesh Training Plan Frequency: 5 Days per Week PT Plan for Next Visit: Recommend Ax2 (starting to decline?); sit/stands and pro twan gait as able w/ chair follow. PT Discharge Recommendations Recommendation: Currently patient requires inpatient level of care. However, typ ical progression for patient condition would anticipate home with assistance at time of discharge. 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 Type 2 diabetes mellitus (HCC) Essential (primary) hypertension Gastro-esophageal reflux disease without esophagitis Hyperlipidemia Longstanding persistent atrial fibrillation (HCC) Moderate malnutrition (HCC) Constipation Primary diagnosis: Acute Myeloid Leukemia Cytogenetics/FISH: FISH negative for CBF aml and -17, conventional CG pending [id number]: negative NGS: pending Referring physician: Via Kristen BOWMAN Chemotherapy plan: Azacitidine, C1D1 02/17/23 Azacitidine C1D5 S/p hydrea Patient wishes to pursue a trial at chemotherapy, is agreeable to start here but hopes to transition his care to Dr. Mame Neri in [place], [place] as soon as he can be stable to discharge. Heme: Monitor CBC for transfusion needs, goal Hgb>8 and platelets >10K Monitor DIC panel Transfusion 02/21/23: None DVT prophylaxis with lovenox unless platelets <50K or signs of DIC Hold LEAD SLOT TECHNICIAN Eliquis 5mg Po BID with thrombocytopenia Hold LEAD SLOT TECHNICIAN ASA 81mg with thrombocytopenia RUE edema and discomfort. US negative INR elevated. Mixing study nearly corrects. Giving po vitamin K FEN/Renal: LIANNA: Improving - CT a/p without obstruction. - Potentially due to hypotensive episode: Hypotensive on 8pm in setting of fe pat. - Improved with abx and IVF Hyponatremia: monitor TLS and uric acid monitoring Replace electrolytes per HIGH protocol per cardiology Cont allopurinol Immunocompromised diet Poor po intake. Boost shake supplements. Nutrition consulted Repeat lasix 40mg IV today ID: Neutropenic fever - Fever on 02/17 - Started cefepime. 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 Increase to 37.5mg BID - Chest pain with exertion with PT: EKG normal, trop normal - proBNP 1459 - Reg stress test: completed 02/16 and low risk for inducible myocardial ischemia - carotid duplex: mild bilateral carotid plaques - Holding LEAD SLOT TECHNICIAN aspirin and Eliquis - Hold LEAD SLOT TECHNICIAN losartan 100mg and chlorthalidone 25mg. Hold LEAD SLOT TECHNICIAN repatha - Afib with RVR in setting of fever on 02/17. S/p IV metoprolol GI: GERD: cont LEAD SLOT TECHNICIAN PPI Constipation: Increase miralax dose. Gave dose of lactulose. Resolved today : BPH: Continue dutasteride & Tamsulosin (formulary sub for them to be separate drugs) Continue LEAD SLOT TECHNICIAN oxybutynin Pulm: ODETTE: on CPAP at night Endo: Diabetes Mellitus FSBS not requiring LDCF, d/c FSBS and insulin 02/16 Hold oral hypoglycemics. Holding januvia and plan to d/c at discharge Hgb A1c 5, so with weight loss LEAD SLOT TECHNICIAN likely no longer needs therapy at this time MSK: Low back pain: sacral nerve stimulator in place up until October 2022 when had 3rd b ack surgery, during which time was removed Derm: Unstageable sacral wound, wound care rec A & D Abrasion Left first castro, monitor Psych: Monitor and offer support as needed. Code status: DNAR-Full Intervention (last reviewed 02/16) Disposition: Earliest discharge D7 of azacitidine. Likely here longer. Yevgeniy Madrid DO Hematologic Malignancies and Cellular Therapeutics Available by Voalte and AMS Connect After hours coverage first call via Cooperative Education Coordinator 8pm to 8am: pager [phone] | Voalte "Med Private 6" Subjective: Braulio López is a 82 y.o. male. A little more energy today. Had 2 protein shakes yesterday. No palpitations, dyspnea or chest pain or cough. No o vert bleeding. Objective: Medications: Scheduled Meds:acyclovir (ZOVIRAX) tablet 400 mg, 400 mg, Oral, BID allopurinoL (ZYLOPRIM) tablet 300 mg, 300 mg, Oral, QDAY azaCITIDine (VIDAZA) injection 162.5 mg, 75 mg/m2 (Treatment Plan Recorded), Sub cutaneous, ONCE cefepime (MAXIPIME) 2 g in sodium chloride 0.9% (NS) 100 mL IVPB (MB+), 2 g, Int ravenous, Q12H* CHOLEcalciferoL (vitamin D3) tablet 1,000 Units, 1,000 Units, Oral, BID cyanocobalamin (vitamin B-12) tablet 1,000 mcg, 1,000 mcg, Oral, QDAY dutasteride (AVODART) capsule 0.5 mg, 0.5 mg, Oral, QDAY w/dinner And tamsulosin (FLOMAX) capsule 0.4 mg, 0.4 mg, Oral, QDAY w/dinner metoprolol tartrate tablet 25 mg, 25 mg, Oral, BID ondansetron (ZOFRAN ODT) rapid dissolve tablet 16 mg, 16 mg, Oral, ONCE oxybutynin XL (DITROPAN XL) tablet 15 mg, 15 mg, Oral, QDAY pantoprazole DR (PROTONIX) tablet 40 mg, 40 mg, Oral, QDAY(21) phytonadione (vitamin K1) tablet 10 mg, 10 mg, Oral, QDAY polyethylene glycol 3350 (MIRALAX) packet 17 g, 1 packet, Oral, BID posaconazole EC (NOXAFIL) tablet 300 mg, 300 mg, Oral, QDAY w/breakfast sodium chloride PF 0.9% flush 10-20 mL, 10-20 mL, Flush, FLUSH Daily Continuous Infusions: PRN and Respiratory Meds:acetaminophen Q6H PRN, magnesium sulfate 4 g/50 mL PRN, melatonin QHS PRN, potassium chloride in water PRN (Duplicating Machine Operator from Rx) OR pot assium chloride SR PRN (Duplicating Machine Operator from Rx), sodium chloride 0.9 % TKO infusion PRN , sodium chloride irrigation PRN Vital Signs: Last Filed Vital Signs: 24 Hour [facility] BP: 115/70 (02/21 311) Temp: 37.3 C (99.1 F) (02/21 311) Pulse: 85 (02/21 311) Respirations: 18 PER MINUTE (02/21 311) SpO2: 94 % (02/21 311) O2 Device: None (Room air) (02/21 311) BP: (103-144)/(53-82) Temp: [36.4 C (97.6 F)-37.3 C (99.1 F)] Pulse: [80-102] Respirations: [16 PER MINUTE-18 PER MINUTE] SpO2: [94 %-98 %] O2 Device: None (Room air) Vitals: 02/18/23 1026 02/19/23 1305 02/20/23 1800 Weight: 98.4 kg (217 lb) 99.4 kg (219 lb 3.2 oz) 99.5 kg (219 lb 6.4 oz) Intake/Output Summary: (Last 24 hours) Intake/Output Summary (Last 24 hours) at 02/21/2023 0635 Last data filed at 02/20/2023 1728 Gross per 24 hour Intake 1592 ml Output 2250 ml Net -658 ml Physical Exam: ECOG performance status is 3, Capable of only limited selfcare, confined to bed or chair more than 50% of waking hours Vital signs and nursing notes reviewed General: Alert, oriented, no distress. Eyes: conjunctiva clear, pupils equal ENT: mucous membranes moist, no mucositis noted. Dentures in place CV: irregular rhythm, no murmur, 1+ LE edema Pulm: no accessory muscle use, b/l scattered crackles Abd: Soft, Nontender, Nondistended, no abnormal organ enlargement/mass Ext: No joint deformities or swelling, normal range of motion Derm: no rashes, petechiae Psych: No anxiety noted Lab Review: CBC w diff Lab Results Component Value Date/Time WBC 13.3 (H) 02/21/2023 03:05 AM RBC 2.20 (L) 02/21/2023 03:05 AM HGB 7.6 (L) 02/21/2023 03:05 AM HCT 22.4 (L) 02/21/2023 03:05 AM MCV 101.6 (H) 02/21/2023 03:05 AM MCH 34.4 (H) 02/21/2023 03:05 AM MCHC 33.9 02/21/2023 03:05 AM RDW 19.1 (H) 02/21/2023 03:05 AM PLTCT 30 (L) 02/21/2023 03:05 AM MPV 10.3 02/21/2023 03:05 AM Lab Results Component Value Date/Time ANC 1.46 (L) 02/21/2023 03:05 AM Comprehensive Metabolic Profile Lab Results Component Value Date/Time NA 134 (L) 02/21/2023 03:05 AM K 3.9 02/21/2023 03:05 AM CL 103 02/21/2023 03:05 AM CO2 23 02/21/2023 03:05 AM GAP 8 02/21/2023 03:05 AM BUN 30 (H) 02/21/2023 03:05 AM CR 1.34 (H) 02/21/2023 03:05 AM GLU 137 (H) 02/21/2023 03:05 AM Lab Results Component Value Date/Time CA 8.6 02/21/2023 03:05 AM PO4 1.9 (L) 02/21/2023 03:05 AM ALBUMIN 3.3 (L) 02/21/2023 03:05 AM TOTPROT 5.5 (L) 02/21/2023 03:05 AM ALKPHOS 51 02/21/2023 03:05 AM AST 27 02/21/2023 03:05 AM ALT 15 02/21/2023 03:05 AM TOTBILI 1.4 (H) 02/21/2023 03:05 AM Radiology Review: Pertinent radiology reviewed and discussed in assessment and plan. Yevgeniy Madrid DO * Laura Conte OT - 02/20/2023 2:20 PM CDT OCCUPATIONAL THERAPY PROGRESS NOTE Name: Braulio López : 1940 Age: 82 y.o. Admission Date: 02/13/2023 LOS: 7 days Date of Service: 02/20/2023 Mobility Patient Turn/Position: Chair Progressive Mobility Level: Walk in room Distance Walked (feet): 15 ft Level of Assistance: Assist X1 Assistive Device: Walker Activity Limited By: Weakness Subjective Pertinent Dx per Physician: PMH: hypertension, hyperlipidemia, ODETTE on CPAP DM, chronic back pain with sacral stimulator PAF, GERD, BPH- admit from OSH due to concern for new acute leukemia diagnosis Precautions: Standard;Falls Pain / Complaints: Patient agrees to participate in therapy Pain Location: Back (chronic) Pain Level Current: (does not rate) Comments: Patient in bed upon therapist arrival, up to bedside chair with needs met and precautions in place. Objective Psychosocial Status: Willing and Cooperative to Participate Home Living Type of Home: House Home Layout: Able to Live on Main Level w/Bedrm/Bathrm Access Bathroom Shower / Tub: Tub/Shower Unit Home Equipment: Cane Comment: pt has been sleeping in lift chair downstairs and going upstairs 1x/wee k for shower due to fatigue and difficulty navigating stairs Prior Function Level Of Weber: Independent with ADLs and functional transfers Lives With: Spouse Other Function Comments: spouse assists with IADL and provides supervision to in termittent assist with ADL as needed ADL's Comment: declined ADLs this date ADL Mobility Bed Mobility: Supine to Sit: Minimal assist Bed Mobility Comments: sits EOB with supervision Transfer Type: Sit to/from stand Transfer: Assistance Level: To/from;Bed;Minimal assist (CGA) Transfer: Assistive Device: Roller walker Transfer: Type of Assistance: For safety considerations;Elevated bed End of Activity Status: Up in chair;Instructed patient to request assist with mo bility;Instructed patient to use call light;Nursing notified Transfer Comments: requires second attempt to complete sit>stand. cues for hand placement. Gait Distance: 15 feet Gait: Assistance Level: Minimal assist (CGA) Gait: Assistive Device: Roller walker Gait Comments: Verbal cueing to staying close to roller walker. short strides Activity Tolerance Endurance: 2/5 Tolerates 10-20 Minutes Exercise w/Multiple Rests Cognition Overall Cognitive Status: WFL to Adequately Complete Self Care Tasks Safely Edema RLE Edema: Moderate edema LLE Edema: Moderate edema Comment: worsened edema this date, likely contributing to increased difficulty w ith mobility. aid present and reports order for compression stockings, plan to d on this PM Education Persons Educated: Patient Teaching Methods: Verbal Instruction Patient Response: Verbalized and Demo Understanding Topics: Role of OT, Goals for Therapy Goal Formulation: With Patient Assessment Assessment: Decreased ADL Status;Decreased Endurance;Decreased Self-Care Trans;D ecreased High-Level ADLs Prognosis: Good;w/Cont OT s/p Acute Discharge Goal Formulation: Patient Comments: Patient appears to have worsened weakness this date, increased difficu lty with mobility and worsened edema. Do still anticipate appropriate for d/c ho me with HH but will continue to follow regularly to ensure maintenance of streng th and progression of mobility. AM-PAC 6 Clicks Daily Activity Inpatient Putting on and taking off regular lower body clothes: A Lot Bathing (Including washing, rinsing, drying): A Little Toileting, which includes using toilet, bedpan, or urinal: A Little Putting on and taking off regular upper body clothing: None Taking care of personal grooming such as brushing teeth: None Eating meals: None Daily Activity Raw Score: 20 Standardized (T-scale) Score: 42.03 Plan Progress: Slow Progress, Decreased Activity Tolerance OT Frequency: 5x/week OT Plan for Next Visit: LE dressing vs standing grooming as pt willing; enduranc e training for household distance ambulation ADL Goals Patient Will Perform All ADL's: w/ Stand By Assist Functional Transfer Goals Pt Will Perform All Functional Transfers: w/ Stand By Assist OT Discharge Recommendations Recommendation: Home with consistent supervision/assistance Recommendation for Therapy Post Discharge: Home health Patient Currently Requires Physical Assist With: All mobility;All home functioni ng ADLs;All personal care ADLs Patient Currently Requires Equipment: Owns what is needed Therapist: Laura Conte OTR/L [id number] Date: 02/20/2023 * Ruth Stout RN - 02/20/2023 1:32 PM CDT CHEMO NOTE Verified chemo consent signed and in chart. Blood return positive via: NA, SubQ Injection RUQ, LUQ BSA and dose double checked (agree with orders as written) with: yes with Ashia guajardo Chemo Certified RN Labs/applicable tests checked: Basic Metabolic Panel (BMP) and Comprehensive Met abolic Panel (CMP) Chemo regimen: C1D3 azaCITIDine (VIDAZA) injection 162.5 mg [[id number]] Ordered Dose: 75 mg/m2 2.2 m2 (Treatment Plan Recorded) Route: Subcutaneous F requency: ONCE Dose Calculation Information: Stability: 8 Hours 75 mg/m2 2.2 m2 (BSA based on [Treatment plan recorded weight: 95.2 kg as of 02/16/2023] [Height: 182.9 cm as of 02/15/2023]) = 162.5 mg (rounded to the nearest 12.5 mg from 165 mg) = 162.5 mg 4 mL/100 mg = 6.5 mL 100 mg/4 mL = 162.5 mg Admin Dose: 162.5 mg Rate verified and armband double check with second RN: yes Patient education offered and stated understanding. Denies questions at this tae e. * Pierre Wells, RT - 02/20/2023 1:01 PM CDT RT Adult Assessment Note NAME:Braulio López :1940 AGE: 82 y.o. ADMISSION DATE: 02/13/2023 DAYS ADMITTED: LOS: 7 days RT Treatment Plan: Protocol Plan: Procedures SpO2: Continuous (Document SpO2 result Qshift) Additional Comments: Impressions of the patient: . Intervention(s)/outcome(s): . Patient education that was completed: . Recommendations to the care team: .. 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 Type 2 diabetes mellitus (HCC) Essential (primary) hypertension Gastro-esophageal reflux disease without esophagitis Hyperlipidemia Longstanding persistent atrial fibrillation (HCC) Moderate malnutrition (HCC) Constipation Primary diagnosis: Acute Myeloid Leukemia Cytogenetics/FISH: FISH negative for CBF aml and -17, conventional CG pending [id number]: negative NGS: pending Referring physician: Via Kristen BOWMAN Chemotherapy plan: Azacitidine, C1D1 02/17/23 Azacitidine C1D4 WBC 02/20/23 13k Hold hydrea today and monitor need daily Patient wishes to pursue a trial at chemotherapy, is agreeable to start here but hopes to transition his care to Dr. Mame Neri in [place], [place] as soon as he can be stable to discharge. Heme: Monitor CBC for transfusion needs, goal Hgb>8 and platelets >10K Monitor DIC panel Transfusion 02/20/23: None DVT prophylaxis with lovenox unless platelets <50K or signs of DIC Hold LEAD SLOT TECHNICIAN Eliquis 5mg Po BID with thrombocytopenia Hold LEAD SLOT TECHNICIAN ASA 81mg with thrombocytopenia RUE edema and discomfort. US negative INR elevated 2.0. Mixing study nearly corrects. Giving po vitamin K FEN/Renal: LIANNA, Cr LEAD SLOT TECHNICIAN 1.6, 1.4 on admission. Improved and worsening to 1.6 - CT a/p without obstruction. Potentially due to hypotensive episode Hypotensive on 02/17pm in setting of fever. Improved with abx and IVF Hyponatremia: monitor TLS and uric acid monitoring Replace electrolytes per HIGH protocol per cardiology Cont allopurinol Immunocompromised diet Poor po intake. Boost shake supplements. Nutrition consult Lasix 20mg IV today ID: Neutropenic fever - Fever on 02/17 - Started cefepime. 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 May increas e soon - Chest pain with exertion with PT: EKG normal, trop normal - proBNP 1459 - Reg stress test: completed 02/16 and low risk for inducible myocardial ischemia - carotid duplex: mild bilateral carotid plaques - Holding LEAD SLOT TECHNICIAN aspirin and Eliquis - Hold LEAD SLOT TECHNICIAN losartan 100mg and chlorthalidone 25mg. Hold LEAD SLOT TECHNICIAN repatha - Afib with RVR in setting of fever on 02/17. S/p IV metoprolol. May increase met oprolol po soon GI: GERD: cont LEAD SLOT TECHNICIAN PPI Constipation: Increase miralax dose. Add lactulose today : BPH: Continue dutasteride & Tamsulosin (formulary sub for them to be separate drugs) Continue LEAD SLOT TECHNICIAN oxybutynin Pulm: ODETTE: on CPAP at night Endo: Diabetes Mellitus FSBS not requiring LDCF, d/c FSBS and insulin 02/16 Hold oral hypoglycemics. Holding januvia and plan to d/c at discharge Hgb A1c 5, so with weight loss LEAD SLOT TECHNICIAN likely no longer needs therapy at this time MSK: Low back pain: sacral nerve stimulator in place up until October 2022 when had 3rd b ack surgery, during which time was removed Derm: Unstageable sacral wound, wound care rec A & D Abrasion Left first castro, monitor Psych: Monitor and offer support as needed. Code status: DNAR-Full Intervention (last reviewed 02/16) Disposition: Earliest discharge D7 of azacitidine. Likely here longer. Yevgeniy Madrid, Hematologic Malignancies and Cellular Therapeutics Available by Voalte and AMS Connect After hours coverage first call via Cooperative Education Coordinator 8pm to 8am: pager [phone] | Voalte "Med Private 6" Subjective: Braulio López is a 82 y.o. male. Still quite fatigued. Minimal po intake. No palpitations, dyspnea or chest pain or cough. No overt bleeding. Objective: Medications: Scheduled Meds:acyclovir (ZOVIRAX) tablet 800 mg, 800 mg, Oral, BID allopurinoL (ZYLOPRIM) tablet 300 mg, 300 mg, Oral, QDAY azaCITIDine (VIDAZA) injection 162.5 mg, 75 mg/m2 (Treatment Plan Recorded), Sub cutaneous, ONCE cefepime (MAXIPIME) 2 g in sodium chloride 0.9% (NS) 100 mL IVPB (MB+), 2 g, Int ravenous, Q12H* CHOLEcalciferoL (vitamin D3) tablet 1,000 Units, 1,000 Units, Oral, BID cyanocobalamin (vitamin B-12) tablet 1,000 mcg, 1,000 mcg, Oral, QDAY dutasteride (AVODART) capsule 0.5 mg, 0.5 mg, Oral, QDAY w/dinner And tamsulosin (FLOMAX) capsule 0.4 mg, 0.4 mg, Oral, QDAY w/dinner metoprolol tartrate tablet 25 mg, 25 mg, Oral, BID ondansetron (ZOFRAN ODT) rapid dissolve tablet 16 mg, 16 mg, Oral, ONCE oxybutynin XL (DITROPAN XL) tablet 15 mg, 15 mg, Oral, QDAY pantoprazole DR (PROTONIX) tablet 40 mg, 40 mg, Oral, QDAY(21) polyethylene glycol 3350 (MIRALAX) packet 17 g, 1 packet, Oral, BID posaconazole EC (NOXAFIL) tablet 300 mg, 300 mg, Oral, QDAY w/breakfast sodium chloride PF 0.9% flush 10-20 mL, 10-20 mL, Flush, FLUSH Daily Continuous Infusions: PRN and Respiratory Meds:acetaminophen Q6H PRN, albuterol sulfate PRN, magnesium sulfate 4 g/50 mL PRN, melatonin QHS PRN, potassium chloride in water PRN (On C all from Rx) OR potassium chloride SR PRN (Duplicating Machine Operator from Rx), sodium chloride 0.9 % TKO infusion PRN, sodium chloride irrigation PRN Vital Signs: Last Filed Vital Signs: 24 Hour Ra nge BP: 128/83 (02/20 623) Temp: 36.4 C (97.5 F) (02/20 623) Pulse: 89 (02/20 623) Respirations: 16 PER MINUTE (02/20 623) SpO2: 93 % (02/20 623) O2 Device: None (Room air) (02/20 623) SpO2 Pulse: 107 (02/21 332) BP: (115-140)/(51-83) Temp: [36.4 C (97.5 F)-37.1 C (98.8 F)] Pulse: [77-110] Respirations: [16 PER MINUTE-18 PER MINUTE] SpO2: [93 %-98 %] O2 Device: None (Room air) Vitals: 02/17/23 1633 02/18/23 1026 02/19/23 1305 Weight: 96.8 kg (213 lb 6.4 oz) 98.4 kg (217 lb) 99.4 kg (219 lb 3.2 oz) Intake/Output Summary: (Last 24 hours) Intake/Output Summary (Last 24 hours) at 02/20/2023 0749 Last data filed at 02/20/2023 0556 Gross per 24 hour Intake 2323 ml Output 1800 ml Net 523 ml Physical Exam: ECOG performance status is 3, Capable of only limited selfcare, confined to bed or chair more than 50% of waking hours Vital signs and nursing notes reviewed General: Alert, oriented, no distress. Eyes: conjunctiva clear, pupils equal ENT: mucous membranes moist, no mucositis noted. Dentures in place CV: irregular rhythm, no murmur, 1+ LE edema Pulm: no accessory muscle use, b/l scattered crackles Abd: Soft, Nontender, Nondistended, no abnormal organ enlargement/mass Ext: No joint deformities or swelling, normal range of motion Derm: no rashes, petechiae Psych: No anxiety noted Lab Review: CBC w diff Lab Results Component Value Date/Time WBC 13.2 (H) 02/20/2023 03:39 AM RBC 2.39 (L) 02/20/2023 03:39 AM HGB 8.1 (L) 02/20/2023 03:39 AM HCT 24.1 (L) 02/20/2023 03:39 AM MCV 101.2 (H) 02/20/2023 03:39 AM MCH 34.0 02/20/2023 03:39 AM MCHC 33.6 02/20/2023 03:39 AM RDW 18.7 (H) 02/20/2023 03:39 AM PLTCT 31 (L) 02/20/2023 03:39 AM MPV 8.9 02/20/2023 03:39 AM Lab Results Component Value Date/Time ANC 1.72 (L) 02/20/2023 03:39 AM Comprehensive Metabolic Profile Lab Results Component Value Date/Time NA 134 (L) 02/20/2023 03:39 AM K 4.1 02/20/2023 03:39 AM CL 105 02/20/2023 03:39 AM CO2 21 02/20/2023 03:39 AM GAP 8 02/20/2023 03:39 AM BUN 29 (H) 02/20/2023 03:39 AM CR 1.58 (H) 02/20/2023 03:39 AM GLU 145 (H) 02/20/2023 03:39 AM Lab Results Component Value Date/Time CA 8.9 02/20/2023 03:39 AM PO4 2.5 02/20/2023 03:39 AM ALBUMIN 3.3 (L) 02/20/2023 03:39 AM TOTPROT 5.8 (L) 02/20/2023 03:39 AM ALKPHOS 43 02/20/2023 03:39 AM AST 22 02/20/2023 03:39 AM ALT 11 02/20/2023 03:39 AM TOTBILI 1.4 (H) 02/20/2023 03:39 AM Radiology Review: Pertinent radiology reviewed and discussed in assessment and plan. Yevgeniy Madrid DO * Maureen Sanchez RN - 02/20/2023 7:00 AM CDT This RN agrees with the assessment/documentation completed by Nereida Flores RN u nless documented otherwise. * Kaci Gallardo RN - 02/19/2023 1:31 PM CDT CHEMO NOTE Verified chemo consent signed and in chart. Blood return positive via: NA, SubQ Injection RUQ, LUQ BSA and dose double checked (agree with orders as written) with: yes with Maurisio Briscoe Chemo Certified RN Labs/applicable tests checked: Basic Metabolic Panel (BMP) and Comprehensive Met abolic Panel (CMP) Chemo regimen: C1D3 azaCITIDine (VIDAZA) injection 162.5 mg [[id number]] Ordered Dose: 75 mg/m2 2.2 m2 (Treatment Plan Recorded) Route: Subcutaneous F requency: ONCE Dose Calculation Information: Stability: 8 Hours 75 mg/m2 2.2 m2 (BSA based on [Treatment plan recorded weight: 95.2 kg as of 02/16/2023] [Height: 182.9 cm as of 02/15/2023]) = 162.5 mg (rounded to the nearest 12.5 mg from 165 mg) = 162.5 mg 4 mL/100 mg = 6.5 mL 100 mg/4 mL = 162.5 mg Admin Dose: 162.5 mg Rate verified and armband double check with second RN: yes Patient education offered and stated understanding. Denies questions at this tae e. 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 Type 2 diabetes mellitus (HCC) Essential (primary) hypertension Gastro-esophageal reflux disease without esophagitis Hyperlipidemia Longstanding persistent atrial fibrillation (HCC) Moderate malnutrition (HCC) Constipation Primary diagnosis: Acute Myeloid Leukemia Cytogenetics/FISH: FISH negative for CBF aml and -17, conventional CG pending [id number]: negative NGS: pending Referring physician: Dora BOWMAN Chemotherapy plan: Azacitidine, C1D1 02/17/23 Azacitidine C1D3 WBC 02/19/23 13k Hold hydrea today and monitor need daily Patient wishes to pursue a trial at chemotherapy, is agreeable to start here but hopes to transition his care to Dr. Mame Neri in [place], [place] as soon as he can be stable to discharge. Heme: Monitor CBC for transfusion needs, goal Hgb>8 and platelets >10K Monitor DIC panel Transfusion 02/19/23: None DVT prophylaxis with lovenox unless platelets <50K or signs of DIC Hold LEAD SLOT TECHNICIAN Eliquis 5mg Po BID with thrombocytopenia Hold LEAD SLOT TECHNICIAN ASA 81mg with thrombocytopenia RUE edema and discomfort. Check US INR elevated 2.0. Will check mixing study FEN/Renal: LIANNA, Cr LEAD SLOT TECHNICIAN 1.6, 1.4 on admission. Improved and worsening to 1.6 - CT a/p without obstruction. Will check UA and FENa. Potentially due to hypoten sive episode Hypotensive on 02/17pm in setting of fever. Improved with abx and IVF Hyponatremia: monitor TLS and uric acid monitoring Replace electrolytes per HIGH protocol per cardiology Cont allopurinol Gave 1L LR overnight with hypotension Immunocompromised diet ID: Neutropenic fever - Fever on 02/17 - Started cefepime. 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 May increas e soon - Chest pain with exertion with PT: EKG normal, trop normal - proBNP 1459 - Reg stress test: completed 02/16 and low risk for inducible myocardial ischemia - carotid duplex: mild bilateral carotid plaques - Holding LEAD SLOT TECHNICIAN aspirin and Eliquis - Hold LEAD SLOT TECHNICIAN losartan 100mg and chlorthalidone 25mg. Hold LEAD SLOT TECHNICIAN repatha - Afib with RVR in setting of fever on 02/17. S/p IV metoprolol. May increase met oprolol po soon GI: GERD: cont LEAD SLOT TECHNICIAN PPI Constipation: Increase miralax dose : BPH: Continue dutasteride & Tamsulosin (formulary sub for them to be separate drugs) Continue LEAD SLOT TECHNICIAN oxybutynin Pulm: ODETTE: on CPAP at night Endo: Diabetes Mellitus FSBS not requiring LDCF, d/c FSBS and insulin 02/16 Hold oral hypoglycemics. Holding januvia and plan to d/c at discharge Hgb A1c 5, so with weight loss LEAD SLOT TECHNICIAN likely no longer needs therapy at this time MSK: Low back pain: sacral nerve stimulator in place up until October 2022 when had 3rd b ack surgery, during which time was removed Derm: Unstageable sacral wound, wound care rec A & D Abrasion Left first catsro, monitor Psych: Monitor and offer support as needed. Code status: DNAR-Full Intervention (last reviewed 02/16) Disposition: Earliest discharge D7 of azacitidine Yevgeniy Madrid, DO Hematologic Malignancies and Cellular Therapeutics Available by Voalte and AMS Connect After hours coverage first call via Cooperative Education Coordinator 8pm to 8am: pager [phone] | Voalte "Med Private Nights 6" Subjective: Braulio López is a 82 y.o. male. Feeling a little better today. No more abd pain. Last BM 3 days ago. Mild chills last night. No palpitations, dys pnea or chest pain or cough. No overt bleeding. Objective: Medications: Scheduled Meds:acyclovir (ZOVIRAX) tablet 800 mg, 800 mg, Oral, BID allopurinoL (ZYLOPRIM) tablet 300 mg, 300 mg, Oral, QDAY azaCITIDine (VIDAZA) injection 162.5 mg, 75 mg/m2 (Treatment Plan Recorded), Sub cutaneous, ONCE cefepime (MAXIPIME) 2 g in sodium chloride 0.9% (NS) 100 mL IVPB (MB+), 2 g, Int ravenous, Q12H* CHOLEcalciferoL (vitamin D3) tablet 1,000 Units, 1,000 Units, Oral, BID cyanocobalamin (vitamin B-12) tablet 1,000 mcg, 1,000 mcg, Oral, QDAY dutasteride (AVODART) capsule 0.5 mg, 0.5 mg, Oral, QDAY w/dinner And tamsulosin (FLOMAX) capsule 0.4 mg, 0.4 mg, Oral, QDAY w/dinner metoprolol tartrate tablet 25 mg, 25 mg, Oral, BID ondansetron (ZOFRAN ODT) rapid dissolve tablet 16 mg, 16 mg, Oral, ONCE oxybutynin XL (DITROPAN XL) tablet 15 mg, 15 mg, Oral, QDAY pantoprazole DR (PROTONIX) tablet 40 mg, 40 mg, Oral, QDAY(21) polyethylene glycol 3350 (MIRALAX) packet 17 g, 1 packet, Oral, QDAY posaconazole EC (NOXAFIL) tablet 300 mg, 300 mg, Oral, QDAY w/breakfast sodium chloride PF 0.9% flush 10-20 mL, 10-20 mL, Flush, FLUSH Daily Continuous Infusions: PRN and Respiratory Meds:acetaminophen Q6H PRN, albuterol sulfate PRN, magnesium sulfate 4 g/50 mL PRN, melatonin QHS PRN, ondansetron (ZOFRAN) IV Q6H PRN, pota ssium chloride in water PRN (Duplicating Machine Operator from Rx) OR potassium chloride SR PRN ( Duplicating Machine Operator from Rx), sodium chloride 0.9 % TKO infusion PRN, sodium chloride irriga tion PRN Vital Signs: Last Filed Vital Signs: 24 Hour Ra nge BP: 107/49 (02/19 429) Temp: 37 C (98.6 F) (02/19 429) Pulse: 81 (02/19 429) Respirations: 18 PER MINUTE (02/19 429) SpO2: 94 % (02/19 429) O2 Device: None (Room air) (02/19 429) BP: (97-134)/(37-60) Temp: [36.6 C (97.8 F)-37.3 C (99.2 F)] Pulse: [68-102] Respirations: [16 PER MINUTE-18 PER MINUTE] SpO2: [94 %-97 %] O2 Device: None (Room air) Vitals: 02/16/23 1548 02/17/23 1633 02/18/23 1026 Weight: 95.2 kg (209 lb 12.8 oz) 96.8 kg (213 lb 6.4 oz) 98.4 kg (217 lb) Intake/Output Summary: (Last 24 hours) Intake/Output Summary (Last 24 hours) at 02/19/2023 0633 Last data filed at 02/18/2023 2315 Gross per 24 hour Intake 769 ml Output 775 ml Net -6 ml Physical Exam: ECOG performance status is 3, Capable of only limited selfcare, confined to bed or chair more than 50% of waking hours Vital signs and nursing notes reviewed General: Alert, oriented, no distress. Eyes: conjunctiva clear, pupils equal ENT: mucous membranes moist, no mucositis noted. Dentures in place CV: irregular rhythm, no murmur, 1+ LE edema Pulm: no accessory muscle use, b/l scattered crackles Abd: Soft, Nontender, Nondistended, no abnormal organ enlargement/mass Ext: No joint deformities or swelling, normal range of motion Derm: no rashes, petechiae Psych: No anxiety noted Lab Review: CBC w diff Lab Results Component Value Date/Time WBC 13.5 (H) 02/19/2023 04:40 AM RBC 2.40 (L) 02/19/2023 04:40 AM HGB 8.2 (L) 02/19/2023 04:40 AM HCT 24.0 (L) 02/19/2023 04:40 AM MCV 100.0 02/19/2023 04:40 AM MCH 34.0 02/19/2023 04:40 AM MCHC 34.0 02/19/2023 04:40 AM RDW 19.2 (H) 02/19/2023 04:40 AM PLTCT 36 (L) 02/19/2023 04:40 AM MPV 10.2 02/19/2023 04:40 AM Lab Results Component Value Date/Time ANC 1.75 (L) 02/18/2023 03:36 AM Comprehensive Metabolic Profile Lab Results Component Value Date/Time NA 134 (L) 02/19/2023 04:40 AM K 4.5 02/19/2023 04:40 AM CL 104 02/19/2023 04:40 AM CO2 22 02/19/2023 04:40 AM GAP 8 02/19/2023 04:40 AM BUN 31 (H) 02/19/2023 04:40 AM CR 1.62 (H) 02/19/2023 04:40 AM GLU 131 (H) 02/19/2023 04:40 AM Lab Results Component Value Date/Time CA 8.8 02/19/2023 04:40 AM PO4 3.0 02/19/2023 04:40 AM ALBUMIN 3.4 (L) 02/19/2023 04:40 AM TOTPROT 5.7 (L) 02/19/2023 04:40 AM ALKPHOS 41 02/19/2023 04:40 AM AST 23 02/19/2023 04:40 AM ALT 10 02/19/2023 04:40 AM TOTBILI 1.4 (H) 02/19/2023 04:40 AM Radiology Review: Pertinent radiology reviewed and discussed in assessment and plan. Yevgeniy Madrid DO * Vida Escobar - 02/18/2023 3:25 PM CDT PHYSICAL THERAPY MOBILITY NOTE Name: Braulio López : 1940 Age: 82 y.o. Admission Date: 02/13/2023 LOS: 5 days Date of Service: 02/18/2023 Patient was assigned for activity with the mobility aide by the supervising ther shant. Patient declined to participate despite encouragement. Stereotyper Helper: Vida Dickinson Date: 02/18/2023 * Kaci Gallardo RN - 02/18/2023 1:55 PM CDT CHEMO NOTE Verified chemo consent signed and in chart. Blood return positive via: None , SubQ Injection BSA and dose double checked (agree with orders as written) with: yes Maurisio Montgomery er, Chemo Certified RN Labs/applicable tests checked: Basic Metabolic Panel (BMP), CBC and Comprehensiv e Metabolic Panel (CMP) Chemo regimen: C1 D2 Vidaza azaCITIDine (VIDAZA) injection 162.5 mg [[id number]] Ordered Dose: 75 mg/m2 2.2 m2 (Treatment Plan Recorded) Route: Subcutaneous F requency: ONCE Dose Calculation Information: Stability: 8 Hours 75 mg/m2 2.2 m2 (BSA based on [Treatment plan recorded weight: 95.2 kg as of 02/16/2023] [Height: 182.9 cm as of 02/15/2023]) = 162.5 mg (rounded to the nearest 12.5 mg from 165 mg) = 162.5 mg 4 mL/100 mg = 6.5 mL 100 mg/4 mL = 162.5 m Rate verified and armband double check with second RN: yes Patient education offered and stated understanding. 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 Type 2 diabetes mellitus (HCC) Essential (primary) hypertension Gastro-esophageal reflux disease without esophagitis Hyperlipidemia Longstanding persistent atrial fibrillation (HCC) Moderate malnutrition (HCC) Constipation Primary diagnosis: Acute Myeloid Leukemia Cytogenetics/FISH: FISH negative for CBF aml and -17, conventional CG pending [id number]: negative NGS: pending Referring physician: [facility] Chemotherapy plan: Azacitidine, C1D1 02/17/23 Azacitidine C1D2 WBC 02/18/23 14k Hold hydrea today and monitor need daily Patient wishes to pursue a trial at chemotherapy, is agreeable to start here but hopes to transition his care to Dr. Mame Neri in [place], [place] as soon as he can be stable to discharge. Heme: Monitor CBC for transfusion needs, goal Hgb>8 and platelets >10K Monitor DIC panel Transfusion 02/18/23: prbcs DVT prophylaxis with lovenox unless platelets <50K or signs of DIC Hold LEAD SLOT TECHNICIAN Eliquis 5mg Po BID with thrombocytopenia Hold LEAD SLOT TECHNICIAN ASA 81mg with thrombocytopenia FEN/Renal: LIANNA, Cr LEAD SLOT TECHNICIAN 1.6, 1.4 on admission. Improved and now back up to 1.4 today Hypotensive on 825pm in setting of fever. Improved with abx and IVF Hyponatremia: monitor TLS and uric acid monitoring Replace electrolytes per HIGH protocol per cardiology Cont allopurinol Gave 1L LR overnight with hypotension Immunocompromised diet ID: Neutropenic fever - Fever on 02/17 - Started cefepime - Blood cultures NGTD - Checking CT a/p with LLQ abd pain - Prior RVP neg Prophylactic anti-infectives: acyclovir, posaconazole CV: H/o CABG Essential hypertension Mixed hyperlipidemia Persistent A fib Pacemaker for bradycardia in place - Cont home metoprolol at reduced dose (reduce further to 25mg BID). May increas e soon - Chest pain with exertion with PT: EKG normal, trop normal - proBNP 1459 - Reg stress test: completed 02/16 and low risk for inducible myocardial ischemia - carotid duplex: mild bilateral carotid plaques - Holding LEAD SLOT TECHNICIAN aspirin and Eliquis - Hold LEAD SLOT TECHNICIAN losartan 100mg and chlorthalidone 25mg. Hold LEAD SLOT TECHNICIAN repatha - Afib with RVR in setting of fever on 02/17. S/p IV metoprolol GI: GERD: cont LEAD SLOT TECHNICIAN PPI Constipation: miralax prn : BPH: Continue dutasteride & Tamsulosin (formulary sub for them to be separate drugs) Continue LEAD SLOT TECHNICIAN oxybutynin Pulm: ODETTE: on CPAP at night Endo: Diabetes Mellitus FSBS not requiring LDCF, d/c FSBS and insulin 02/16 Hold oral hypoglycemics. Holding januvia and plan to d/c at discharge Hgb A1c 5, so with weight loss LEAD SLOT TECHNICIAN likely no longer needs therapy at this time MSK: Low back pain: sacral nerve stimulator in place up until October 2022 when had 3rd b ack surgery, during which time was removed Derm: Unstageable sacral wound, wound care rec A & D Abrasion Left first castro, monitor Psych: Monitor and offer support as needed. Code status: DNAR-Full Intervention (last reviewed 02/16) Disposition: Earliest discharge D7 of azacitidne Yevgeniy Madrid, DO Hematologic Malignancies and Cellular Therapeutics Available by Voalte and AMS Connect After hours coverage first call via Cooperative Education Coordinator 8pm to 8am: pager [phone] | Voalte "Med Private Nights 6" Subjective: Brualio López is a 82 y.o. male. Had fever last night. Had some ch ills. Also with high HR last night. Had mild palpitations. No chest pain. No diz ziness. No dyspnea or cough. No mouth pain. Had a brief episode of LLQ abd pain last night. Normal BMs. Objective: Medications: Scheduled Meds:acyclovir (ZOVIRAX) tablet 800 mg, 800 mg, Oral, BID allopurinoL (ZYLOPRIM) tablet 300 mg, 300 mg, Oral, QDAY azaCITIDine (VIDAZA) injection 162.5 mg, 75 mg/m2 (Treatment Plan Recorded), Sub cutaneous, ONCE cefepime (MAXIPIME) 2 g in sodium chloride 0.9% (NS) 100 mL IVPB (MB+), 2 g, Int ravenous, Q8H* CHOLEcalciferoL (vitamin D3) tablet 1,000 Units, 1,000 Units, Oral, BID cyanocobalamin (vitamin B-12) tablet 1,000 mcg, 1,000 mcg, Oral, QDAY dutasteride (AVODART) capsule 0.5 mg, 0.5 mg, Oral, QDAY w/dinner And tamsulosin (FLOMAX) capsule 0.4 mg, 0.4 mg, Oral, QDAY w/dinner metoprolol tartrate tablet 25 mg, 25 mg, Oral, BID ondansetron (ZOFRAN ODT) rapid dissolve tablet 16 mg, 16 mg, Oral, ONCE oxybutynin XL (DITROPAN XL) tablet 15 mg, 15 mg, Oral, QDAY pantoprazole DR (PROTONIX) tablet 40 mg, 40 mg, Oral, QDAY(21) polyethylene glycol 3350 (MIRALAX) packet 17 g, 1 packet, Oral, QDAY posaconazole EC (NOXAFIL) tablet 300 mg, 300 mg, Oral, QDAY w/breakfast sodium chloride PF 0.9% flush 10-20 mL, 10-20 mL, Flush, FLUSH Daily Continuous Infusions: PRN and Respiratory Meds:acetaminophen Q6H PRN, albuterol sulfate PRN, magnesium sulfate 4 g/50 mL PRN, potassium chloride in water PRN (Duplicating Machine Operator from Rx) OR potassium chloride SR PRN (Duplicating Machine Operator from Rx), sodium chloride 0.9 % TKO infusion PRN, sodium chloride irrigation PRN Vital Signs: Last Filed Vital Signs: 24 Hour Ra nge BP: 94/52 (02/18 334) Temp: 36.8 C (98.2 F) (02/18 334) Pulse: 99 (02/18 334) Respirations: 18 PER MINUTE (02/18 334) SpO2: 96 % (02/18 334) O2 Device: None (Room air) (02/18 334) BP: (79-167)/(46-69) Temp: [36.6 C (97.9 F)-38.7 C (101.6 F)] Pulse: [66-145] Respirations: [16 PER MINUTE-20 PER MINUTE] SpO2: [94 %-99 %] O2 Device: None (Room air) Vitals: 02/15/23 1447 02/16/23 1548 02/17/23 1633 Weight: 95.3 kg (210 lb) 95.2 kg (209 lb 12.8 oz) 96.8 kg (213 lb 6.4 oz) Intake/Output Summary: (Last 24 hours) Intake/Output Summary (Last 24 hours) at 02/18/2023 0641 Last data filed at 02/18/2023 0100 Gross per 24 hour Intake 1160 ml Output 1125 ml Net 35 ml Physical Exam: ECOG performance status is 3, Capable of only limited selfcare, confined to bed or chair more than 50% of waking hours Vital signs and nursing notes reviewed General: Alert, oriented, no distress. Eyes: conjunctiva clear, pupils equal ENT: mucous membranes moist, no mucositis noted. Dentures in place CV: irregular rhythm, no murmur, 1+ LE edema Pulm: CTAB, no wheezing/rales Abd: Soft, Tender to moderate palpation LLQ, Nondistended, no abnormal organ enl argement/mass Ext: No joint deformities or swelling, normal range of motion Derm: no rashes, petechiae Psych: No anxiety noted Lab Review: CBC w diff Lab Results Component Value Date/Time WBC 14.6 (H) 02/18/2023 03:36 AM RBC 2.11 (L) 02/18/2023 03:36 AM HGB 7.4 (L) 02/18/2023 03:36 AM HCT 22.0 (L) 02/18/2023 03:36 AM MCV 104.0 (H) 02/18/2023 03:36 AM MCH 34.9 (H) 02/18/2023 03:36 AM MCHC 33.6 02/18/2023 03:36 AM RDW 17.7 (H) 02/18/2023 03:36 AM PLTCT 42 (L) 02/18/2023 03:36 AM MPV 10.4 02/18/2023 03:36 AM Lab Results Component Value Date/Time ANC 1.75 (L) 02/18/2023 03:36 AM Comprehensive Metabolic Profile Lab Results Component Value Date/Time NA 135 (L) 02/18/2023 03:36 AM K 4.6 02/18/2023 03:36 AM CL 104 02/18/2023 03:36 AM CO2 23 02/18/2023 03:36 AM GAP 8 02/18/2023 03:36 AM BUN 21 02/18/2023 03:36 AM CR 1.44 (H) 02/18/2023 03:36 AM GLU 149 (H) 02/18/2023 03:36 AM Lab Results Component Value Date/Time CA 8.5 02/18/2023 03:36 AM PO4 2.5 02/18/2023 03:36 AM ALBUMIN 3.4 (L) 02/18/2023 03:36 AM TOTPROT 5.6 (L) 02/18/2023 03:36 AM ALKPHOS 43 02/18/2023 03:36 AM AST 23 02/18/2023 03:36 AM ALT 8 02/18/2023 03:36 AM TOTBILI 1.2 02/18/2023 03:36 AM Radiology Review: Pertinent radiology reviewed and discussed in assessment and plan. Yevgeniy Madrid DO * Mara Kam, RT - 02/17/2023 5:36 PM CDT RT Adult Assessment Note NAME:Braulio López :1940 AGE: 82 y.o. ADMISSION DATE: 02/13/2023 DAYS ADMITTED: LOS: 4 days RT Treatment Plan: Protocol Plan: Procedures SpO2: Continuous (Document SpO2 result Qshift) Comment: refusing odette protocol Additional Comments: Impressions of the patient: pt resting in bed, NAD Intervention(s)/outcome(s): RT assessment Patient education that was completed: none Recommendations to the care team: none Vital Signs: Pulse: 66 RR: 18 PER MINUTE SpO2: 99 % O2 Device: None (Room air) Liter Flow: O2%: Breath Sounds: Respiratory Effort: * Anh Morales, PT - 02/17/2023 3:14 PM CDT PHYSICAL THERAPY NOTE Name: Braulio López : 1940 Age: 82 y.o. Admission Date: 02/13/2023 LOS: 4 days Date of Service: 02/17/2023 Multiple attempts for physical therapy this afternoon, patient with access team placing PICC line and then preparing for chemo initiation. Per OT, patient mobil ized well this morning, consistent with mobility levels noted in previous encoun ter. However, patient to benefit from ongoing mobility, encourage mobility with nursing staff over the weekend. Physical therapy to continue to follow through a dmission. Therapist: Anh Morales, PT, DPT [id number] Date: 02/17/2023 * Debbie Adams - 02/17/2023 2:35 PM CDT [facility] Inpatient Onco-Psychology Attempted follow-up x2 for new diagnosis of leukemia. However, pt couldn't be se en as he was with other providers and later busy with PICC line insertion. Will return to follow-up with pt at a later time. Debbie Adams, PhD Onco-Broadcast Program Director Department of Psychiatry and Behavioral Sciences [facility] Voalte Note: Services and documentation were provided under the supervision of a licens ed psychologist. Associated attestation - Alissa Ragland, PhD - 02/20/2023 8:34 PM CDT I reviewed the case with the Post-Doctoral Fellow, and agree with the conclusion s and treatment plan. Alissa Ragland, PhD Licensed Psychologist Onco-Psychology Program Pager [phone] * Sariah Aguiar, HALEY - 02/17/2023 2:13 PM CDT .CHEMO NOTE Verified chemo consent signed and in chart. Blood return positive via: None BSA and dose double checked (agree with orders as written) with: yes Denny Romero RN Labs/applicable tests checked: CBC and Comprehensive Metabolic Panel (CMP) Chemo regimen: Drug/cycle/day Cycle 1 Day 1 azaCITIDine (VIDAZA) injection 162.5 mg [[id number]] Ordered Dose: 75 mg/m2 2.2 m2 (Treatment Plan Recorded) Route: Subcutaneous F requency: ONCE Dose Calculation Information: Stability: 8 Hours 75 mg/m2 2.2 m2 (BSA based on [Treatment plan recorded weight: 95.2 kg as of 02/16/2023] [Height: 182.9 cm as of 02/15/2023]) = 162.5 mg (rounded to the nearest 12.5 mg from 165 mg) = 162.5 mg 4 mL/100 mg = 6.5 mL 100 mg/4 mL = 162.5 mg Admin Dose: 162.5 mg Rate verified and armband double check with second RN: yes Patient education offered and stated understanding. Denies questions at this tae e. 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 Coronary artery disease-no symptoms of angina, no use of sublingual nitrogly cerin 2. History of CABG x3 in 2007 Patient was evaluated with a 2D echo Doppler study dated 02/12/2023-normal LVE F, mild RV dilatation, preserved systolic function, moderate to severe TR, mild pulmonary hypertension estimated PAP = 49 mmHg A perfusion imaging study dated 02/16/2023- small, partially fixed defect note d in apical EF mild reduced intensity, no large areas of ischemia, LVEF = 80% 3. Bilateral carotid bruit Patient was evaluated with a carotid artery duplex, he was not found to have any hemodynamically significant disease 4. Permanent atrial fibrillation-patient is anticoagulated with apixaban, the v entricular rate is not optimally controlled (at times) 5. History of tachycardia/bradycardia syndrome, status post PPM implant 6. Primary hypertension 7. Valvular disorder-moderate to severe TR by the echo dated 02/12/2023 8. Pancytopenia 9. Acute myeloid leukemia --currently undergoing oncological evaluation Plan: 1. Increase metoprolol to 37.5 mg p.o. twice daily 2. Monitor and correct electrolytes, goal potassium higher than 4.0 mEq/L, goal magnesium higher than 2.0 mg/dL 3. Consider blood transfusion to a goal hemoglobin/hematocrit > 8 g/dL / 25% 4. From a cardiac standpoint there is no contraindication to proceed with oncol ogical therapy 5. Continue the apixaban as long as considered low risk of bleeding from a onco logical standpoint __ Subjective: Patient is doing well, no chest pain, no heart palpitations Allergies: Ciprofloxacin, Clonidine, Amiodarone, Lmekqzb-aub-znp reductase inhi bitors, Mirabegron, and Nsaids (non-steroidal anti-inflammatory drug) Medications: Scheduled Meds:acyclovir (ZOVIRAX) tablet 800 mg, 800 mg, Oral, BID allopurinoL (ZYLOPRIM) tablet 300 mg, 300 mg, Oral, QDAY azaCITIDine (VIDAZA) injection 162.5 mg, 75 mg/m2 (Treatment Plan Recorded), Sub cutaneous, ONCE CHOLEcalciferoL (vitamin D3) tablet 1,000 Units, 1,000 Units, Oral, BID cyanocobalamin (vitamin B-12) tablet 1,000 mcg, 1,000 mcg, Oral, QDAY dutasteride (AVODART) capsule 0.5 mg, 0.5 mg, Oral, QDAY w/dinner And tamsulosin (FLOMAX) capsule 0.4 mg, 0.4 mg, Oral, QDAY w/dinner hydroxyurea (HYDREA) capsule 1,000 mg, 1,000 mg, Oral, BID levoFLOXacin (LEVAQUIN) tablet 750 mg, 750 mg, Oral, QDAY metoprolol tartrate tablet 25 mg, 25 mg, Oral, BID ondansetron (ZOFRAN ODT) rapid dissolve tablet 16 mg, 16 mg, Oral, ONCE oxybutynin XL (DITROPAN XL) tablet 15 mg, 15 mg, Oral, QDAY pantoprazole DR (PROTONIX) tablet 40 mg, 40 mg, Oral, QDAY(21) polyethylene glycol 3350 (MIRALAX) packet 17 g, 1 packet, Oral, QDAY posaconazole EC (NOXAFIL) tablet 300 mg, 300 mg, Oral, QDAY w/breakfast Continuous Infusions: PRN and Respiratory Meds:acetaminophen Q6H PRN, albuterol sulfate PRN, magnesium sulfate 4 g/50 mL PRN, potassium chloride in water PRN (Duplicating Machine Operator from Rx) OR potassium chloride SR PRN (Duplicating Machine Operator from Rx), sodium chloride 0.9 % TKO infusion PRN, sodium chloride irrigation PRN Physical Exam: Vital Signs: Last Filed In 24 Hours Vital Signs: 24 Hour Range BP: 167/69 (02/17 1009) Temp: 36.7 C (98.1 F) (02/17 1009) Pulse: 97 (02/17 1009) Respirations: 16 PER MINUTE (02/17 1009) SpO2: 98 % (02/17 1009) O2 Device: None (Room air) (02/17 1009) BP: (123-167)/(53-69) Temp: [36.6 C (97.9 F)-36.8 C (98.2 F)] Pulse: [76-97] Respirations: [16 PER MINUTE-18 PER MINUTE] SpO2: [97 %-99 %] O2 Device: None (Room air) Intake/Outpur Summary: (Last 24 hours) Intake/Output Summary (Last 24 hours) at 02/17/2023 1228 Last data filed at 02/17/2023 0930 Gross per 24 hour Intake 2420 ml Output 825 ml Net 1595 ml Vitals: 02/15/23 0925 02/15/23 1447 02/16/23 1548 Weight: 95.3 kg (210 lb) 95.3 kg (210 lb) 95.2 kg (209 lb 12.8 oz) Physical Exam General Appearance: Pale, BMI 28.45 kg/m Neck Veins: neck veins are not distended Auscultation/Percussion: lungs clear to auscultation, no rales or rhonchi, no wh eezing Cardiac Auscultation: S1, S2 normal, no rub, no gallop, murmurs Carotid Arteries: no bruits Pedal Pulses: normal symmetric pedal pulses Lower Extremity : no lower extremity edema Abdominal Exam: soft, non-tender, non-distended, normal bowel sounds Neurologic Exam: neurological assessment grossly intact Laboratory Review: 24-hour labs: Results for orders placed or performed during the hospital encounter of 02/13/23 (from the past 24 hour(s)) POC GLUCOSE Collection Time: 02/16/23 4:53 PM Result Value Ref Range Glucose, POC 121 (H) 70 - 100 MG/DL CBC AND DIFF CELLULAR THERAPEUTICS Collection Time: 02/17/23 4:07 AM Result Value Ref Range White Blood Cells 18.2 (H) 4.5 - 11.0 K/UL RBC 2.20 (L) 4.4 - 5.5 M/UL Hemoglobin 7.9 (L) 13.5 - 16.5 GM/DL Hematocrit 23.0 (L) 40 - 50 % MCV 104.4 (H) 80 - 100 FL MCH 36.0 (H) 26 - 34 PG MCHC 34.5 32.0 - 36.0 G/DL RDW 18.7 (H) 11 - 15 % Platelet Count 47 (L) 150 - 400 K/UL MPV 9.9 7 - 11 FL Segmented Neutrophils 2 (L) 41 - 77 % Lymphocytes 20 (L) 24 - 44 % Monocytes 10 4 - 12 % Blast 68 % ANISO PRESENT MACRO PRESENT Platelet Estimate MKD DEC Absolute Neutrophil Count Manual 0.36 (L) 1.8 - 7.0 K/UL PROTIME INR (PT) Collection Time: 02/17/23 4:07 AM Result Value Ref Range Protime 18.7 (H) 9.5 - 14.2 SEC INR 1.7 (H) 0.8 - 1.2 PTT (APTT) Collection Time: 02/17/23 4:07 AM Result Value Ref Range APTT 35.7 24.0 - 36.5 SEC COMPREHENSIVE METABOLIC PANEL CELLULAR THERAPEUTICS Collection Time: 02/17/23 4:07 AM Result Value Ref Range Sodium 136 (L) 137 - 147 MMOL/L Potassium 4.0 3.5 - 5.1 MMOL/L Chloride 105 98 - 110 MMOL/L Glucose 111 (H) 70 - 100 MG/DL Blood Urea Nitrogen 14 7 - 25 MG/DL Creatinine 1.16 0.4 - 1.24 MG/DL Calcium 9.0 8.5 - 10.6 MG/DL Total Protein 5.8 (L) 6.0 - 8.0 G/DL Total Bilirubin 1.0 0.3 - 1.2 MG/DL Albumin 3.6 3.5 - 5.0 G/DL Alk Phosphatase 38 25 - 110 U/L AST (SGOT) 18 7 - 40 U/L CO2 22 21 - 30 MMOL/L ALT (SGPT) 4 (L) 7 - 56 U/L Anion Gap 9 3 - 12 eGFR >60 >60 mL/min MAGNESIUM CELLULAR THERAPEUTICS Collection Time: 02/17/23 4:07 AM Result Value Ref Range Magnesium 2.1 1.6 - 2.6 mg/dL PHOSPHORUS CELLULAR THERAPEUTICS Collection Time: 02/17/23 4:07 AM Result Value Ref Range Phosphorus 3.4 2.0 - 4.5 MG/DL FIBRINOGEN Collection Time: 02/17/23 4:07 AM Result Value Ref Range Fibrinogen 271 200 - 400 MG/DL URIC ACID Collection Time: 02/17/23 4:07 AM Result Value Ref Range Uric Acid 4.0 4.0 - 8.0 MG/DL POC GLUCOSE Collection Time: 02/17/23 7:32 AM Result Value Ref Range Glucose, POC 119 (H) 70 - 100 MG/DL POC GLUCOSE Collection Time: 02/17/23 10:27 AM Result Value Ref Range Glucose, POC 138 (H) 70 - 100 MG/DL Cardiographics reviewed by me: ECG: not done Telemetry: Atrial fibrillation Echocardiogram: Study dated 02/15/2023-normal LVEF = 60%, moderate to severe TR, mild pulmonary hypertension, estimated PAP = 49 mmHg. Stress test: Regadenoson thallium dated 02/16/2023- no large areas of ischemia, prior mild area of injury in the inferior lateral wall, LVEF = 80%. Chest X-Ray: none Ana Kathleen MD Cardiology Dept [phone] * Dee Dee Yanez, PHARMD - 02/17/2023 10:56 AM CDT Chemotherapy Education Provided patient with written and verbal education regarding azacitidine chemoth erapy for the treatment of AML. Reviewed dosing schedule. Patient will receive chemotherapy as follows: Azacitidine (administered SQ) for 7 days Reviewed side effects of azacitdine therapy, including - but not limited to: Lowering of blood counts (and associated infection, bleeding/bruising, fatigu e) Nausea and vomiting Fever Bowel changes Injection site reactions (when administered subcutaneously) Discussed potential for myelosuppression and infection. Temperature will be kourtney tored frequently during patient's hospital stay. Discussed that we try to preven t infections by using prophylactic antiinfectives, including acyclovir, levoflox acin, and posaconazole. Patient expressed understanding of this information. Cau tioned patient against using acetaminophen/ibuprofen while receiving chemotherap y, as these products may mask a fever. Verified that patient does have a thermom eter at home in order to check temperature frequently and understands the proces s with which to call the clinic in the event of a fever. Reinforced to the patie nt that a fever of >=100.5 degrees F is considered a medical emergency and patient is to call the triage line if patient experiences a fever. and patient should try to avoid sources of infection. Discussed potential for nausea/vomiting. Explained that patient will receive ant i-emetics prior to each dose of chemotherapy and that PRN options will be availa ble if needed. Encouraged patient to maintain communication with health care sta ff if feels nauseous throughout treatment course. Encouraged patient to keep up adequate water/nutrition intake. Also discussed potential for constipation/diarr hea. Encouraged patient to maintain communication regarding any bowel changes an d that interventions can be made accordingly to treat diarrhea or constipation a s indicated. Reviewed potential need for platelet and blood transfusions as counts will be lo w during chemotherapy and during recovery period. Cautioned patient to be carefu l when brushing teeth to avoid gum bleeding and that patient is at a higher risk for bruising and bleeding. Advised patient that there is an increased incidence of fatigue as the hemoglobin falls. While the incidence of infusion hypersensitivity reactions is rare, cautioned jaky benavidez about this potential and advised patient to report immediately any swellin g, burning, pain, or redness at the infusion site, any trouble breathing, or any chest pain. Patient voiced understanding about the provided information. All questions/beti rns addressed at this time. Medication handout(s) provided. Dee Dee Yanez PHARMD * Alissa Stein OT - 02/17/2023 10:37 AM CDT OCCUPATIONAL THERAPY PROGRESS NOTE Name: Braulio López : 1940 Age: 82 y.o. Admission Date: 02/13/2023 LOS: 4 days Date of Service: 02/17/2023 Mobility Patient Turn/Position: Chair Progressive Mobility Level: Walk in hallway Distance Walked (feet): 250 ft Level of Assistance: Stand by assistance Assistive Device: Walker Activity Limited By: Weakness;Fatigue Subjective Pertinent Dx per Physician: PMH: hypertension, hyperlipidemia, ODETTE on CPAP DM, chronic back pain with sacral stimulator PAF, GERD, BPH- admit from OSH due to concern for new acute leukemia diagnosis Precautions: Falls Pain / Complaints: Patient demonstrates nonverbal signs of pain;Patient agrees t o participate in therapy Pain Location: Back (chronic) Pain Level Current: (does not rate) Objective Psychosocial Status: Willing and Cooperative to Participate Persons Present: Spouse Home Living Type of Home: House Home Layout: Able to Live on Main Level w/Bedrm/Bathrm Access Bathroom Shower / Tub: Tub/Shower Unit Home Equipment: Cane Comment: pt has been sleeping in lift chair downstairs and going upstairs 1x/wee k for shower due to fatigue and difficulty navigating stairs Prior Function Level Of Weber: Independent with ADLs and functional transfers Lives With: Spouse Other Function Comments: spouse assists with IADL and provides supervision to in termittent assist with ADL as needed ADL's Comment: Declined ADLs- cleaning dentures at sink for pt upon arrival. ADL Mobility Bed Mobility: Supine to Sit: Standby assist Bed Mobility Comments: HOB elevated Transfer Type: Sit to/from stand Transfer: Assistance Level: To/from;Bed;Bedside chair;Standby assist Transfer: Assistive Device: Roller walker End of Activity Status: Up in chair Sitting Balance: Standby assist Standing Balance: Standby assist Gait Distance: 250 feet Gait: Assistance Level: Standby assist Gait: Assistive Device: Roller walker Gait Comments: Verbal cueing to staying close to roller walker. Activity Tolerance Endurance: 3/5 Tolerates 25-30 Minutes Exercise w/Multiple Rests Comment: Denies c/o dizziness/SOA throughout session. Cognition Overall Cognitive Status: WFL to Adequately Complete Self Care Tasks Safely Assessment Assessment: Decreased ADL Status;Decreased Endurance;Decreased Self-Care Trans;D ecreased High-Level ADLs Goal Formulation: Patient Comments: Pt with decreased activity tolerance and generalized weakness likely a ssociated with recent medical diagnosis. Will likely benefit from ongoing therap y during acute stay to maximize opportunities to participate in standing ADLs an d mobility and for further strength/endurance training prn. At this point, pt sa fe to d/c home with continued family assist prn once medically stable. AM-PAC 6 Clicks Daily Activity Inpatient Putting on and taking off regular lower body clothes: A Little Bathing (Including washing, rinsing, drying): A Little Toileting, which includes using toilet, bedpan, or urinal: A Little Putting on and taking off regular upper body clothing: None Taking care of personal grooming such as brushing teeth: None Eating meals: None Daily Activity Raw Score: 21 Standardized (T-scale) Score: 44.27 Plan OT Frequency: 5x/week OT Plan for Next Visit: LE dressing vs standing grooming as pt willing; enduranc e training for household distance ambulation ADL Goals Patient Will Perform All ADL's: w/ Stand By Assist Functional Transfer Goals Pt Will Perform All Functional Transfers: w/ Stand By Assist OT Discharge Recommendations Recommendation: Home with intermittent supervision/assistance Patient Currently Requires Physical Assist With: All home functioning ADLs Patient Currently Requires Supervision For: Mobility & Standing ADLs Patient Currently Requires Equipment: Owns what is needed Therapist: DARIEL Berg/Janis [id number] Date: 02/17/2023 * Male, Britt Suazo MD - 02/17/2023 7:13 AM CDT Acute Leukemia Service Progress Note Today's Date: 02/17/2023 Name: Braulio López Admission Date: 02/13/2023 LOS: LOS: 4 days Assessment/Plan: Principal Problem: Acute myeloid leukemia not having achieved remission (HCC) Active Problems: 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 Type 2 diabetes mellitus (HCC) Essential (primary) hypertension Gastro-esophageal reflux disease without esophagitis Hyperlipidemia Longstanding persistent atrial fibrillation (HCC) Moderate malnutrition (HCC) Primary diagnosis: Acute Myeloid Leukemia by peripheral blood flow cytometry Cytogenetics/FISH: FISH negative for CBF aml and -17, conventional CG pending [id number]: negative NGS: pending Referring physician: Via Kristen BOWMAN Chemotherapy plan: Azacitidine, C1D1 02/17/23 Day 1 WBC 02/17/23 18 (16k ) Plan hydrea 1g BID x 3 doses, Hydrea 1g x1 on 02/16 Hydrea 1g BID on 02/17, further dosing based on WBC count Reviewed options of chemotherapy with single agent azacitidine (not candidate fo r adding stacie with performance status and risk with cytopenias to cardiac status at this time, may add later if has excellent tolerance to aza) vs BSC with trans fusion/infection treatment vs hospice. Patient wishes to pursue a trial at chemotherapy, is agreeable to start here but hopes to transition his care to Dr. Mame Neri in [place], [place] as soon as he can be stable to discharge. Chemotherapy consent for the following chemotherapy drugs, with side effects inc luding but not limited to: Azacitidine (Vidaza): side effects include injection site reaction, nausea, vomi ting, diarrhea, constipation, bone marrow suppression that may require blood pro duct transfusion, risk of infection Discussed with chemotherapy there can be a risk of bleeding or clotting that may be severe and/or require intervention Discussed the risk with chemotherapy of rapid tumor cell causes cells to b urst and those chemicals released can cause kidney injury, electrolyte disturban [place] requiring intervention, and that medications may be used to prevent and redu ce these chemicals from injuring organs Discussed with all of these agents risk of infection, potentially life threateni ng, is significant. As a result we provide antimicrobials when indicated to prev ent infection. Other common toxicities were listed in the chemotherapy consent Blood consent tied with chemotherapy consent also completed concurrently, discus sed side effects and risks of blood transfusion Questions were answered. Chemo/Blood Consent signed electronically and immedia tely visible in EHR. Heme: Monitor CBC for transfusion needs, goal Hgb>7.5 and platelets >10K Monitor DIC panel Transfusion 02/17/23: None DVT prophylaxis with lovenox unless platelets <50K or signs of DIC Hold LEAD SLOT TECHNICIAN Eliquis 5mg Po BID with upcoming procedures to obtain diagnosis and wit h platelets < 50k Hold LEAD SLOT TECHNICIAN ASA 81mg with thrombocytopenia FEN/Renal: LIANNA, Cr LEAD SLOT TECHNICIAN 1.6, 1.4 on admission Cr Cl 02/17/23: 58.8 (63.8 ) Hyponatremia: monitor TLS and uric acid monitoring. Management per institutional algorithm Replace electrolytes per HIGH protocol per cardiology Allopurinol 300mg/day IVF with risk of TLS: NS at 50ml/hr, d/c 02/15 with improvement of LIANNA, downtrend of WBC and good po intake Immunocompromised diet ID: Monitor for fevers. 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 Resume home metoprolol at reduced dose (reduce further to 25mg BID) Chest pain with exertion with PT: EKG normal, trop normal, BNP 1459 rec Reg stress test: completed 02/16 and low risk for inducible myocardial ischem ia , carotid duplex: mild bilateral carotid plaques LEAD SLOT TECHNICIAN antihypertensives( metoprolol, losartan, chlorthalidone) with -Telemetry monitoring -will hold LEAD SLOT TECHNICIAN eliquis, see hem section LEAD SLOT TECHNICIAN: Losartan 100mg/day Chlorthalidone 25mg /day Metoprolol tartrate 100mg po BID Repatha 420mg/ml sq monthly ASA 81mg daily GI: GERD: LEAD SLOT TECHNICIAN on omeprazole 20mg Formulary change to protonix Constipation: start miralax 02/17 (LEAD SLOT TECHNICIAN had been using PRN with good success) Monitor for GI distress and prn antiemetics available. Monitor liver function : BPH: Continue dutasteride & Tamsulosin (formulary sub for them to be separate drugs) Continue LEAD SLOT TECHNICIAN oxybutynin LEAD SLOT TECHNICIAN: dutasteride 0.5 mg-tamsulosin ER 0.4 mg capsule ext.release 24hr mphas Oxybutnynin 15mg extended release Pulm: ODETTE: on CPAP at night Endo: Diabetes Mellitus FSBS not requiring LDCF, d/c FSBS and insulin 02/16 Hold oral hypoglycemics Hgb A1c 5, so with weight loss LEAD SLOT TECHNICIAN likely no longer needs therapy at this time LEAD SLOT TECHNICIAN: Januvia 100mg/day, d/c at discharge MSK: Low back pain: sacral nerve stimulator in place up until October 2022 when had 3rd b ack surgery, during which time was removed Derm: Unstageable sacral wound, wound care rec A & D Abrasion Left first castro, monitor Psych: Monitor and offer support as needed. Code status: DNAR-Full Intervention Code status reviewed 02/16, see separate ACP note Disposition: Initiate azacitidine 7 days today Britt Stevens MD Hematologic Malignancies and Cellular Therapeutics Available by Voalte and AMS Connect After hours coverage first call via Cooperative Education Coordinator 8pm to 8am: pager [phone] | Voalte "Med Private Nights 6" Subjective: Braulio López is a 82 y.o. male. Patient states he slept ok. He kwan d a vanilla milkshake last night. He has no nausea, no sob. States he is constip ated and miralax has worked for him in the past Objective: Medications: Scheduled Meds:acyclovir (ZOVIRAX) tablet 800 mg, 800 mg, Oral, BID allopurinoL (ZYLOPRIM) tablet 300 mg, 300 mg, Oral, QDAY CHOLEcalciferoL (vitamin D3) tablet 1,000 Units, 1,000 Units, Oral, BID cyanocobalamin (vitamin B-12) tablet 1,000 mcg, 1,000 mcg, Oral, QDAY dutasteride (AVODART) capsule 0.5 mg, 0.5 mg, Oral, QDAY w/dinner And tamsulosin (FLOMAX) capsule 0.4 mg, 0.4 mg, Oral, QDAY w/dinner levoFLOXacin (LEVAQUIN) tablet 750 mg, 750 mg, Oral, QDAY metoprolol tartrate tablet 25 mg, 25 mg, Oral, BID oxybutynin XL (DITROPAN XL) tablet 15 mg, 15 mg, Oral, QDAY pantoprazole DR (PROTONIX) tablet 40 mg, 40 mg, Oral, QDAY(21) posaconazole EC (NOXAFIL) tablet 300 mg, 300 mg, Oral, QDAY w/breakfast Continuous Infusions: PRN and Respiratory Meds:acetaminophen Q6H PRN, albuterol sulfate PRN, dextrose 50% (D50) IV PRN, magnesium sulfate 4 g/50 mL PRN, nitroglycerin Q5 MIN PRN, pot assium chloride in water PRN (Duplicating Machine Operator from Rx) OR potassium chloride SR PRN (Duplicating Machine Operator from Rx), sodium chloride 0.9 % TKO infusion PRN, sodium chloride irrig ation PRN Vital Signs: Last Filed Vital Signs: 24 Hour [facility] BP: 129/59 (02/17 405) Temp: 36.6 C (97.9 F) (02/17 405) Pulse: 77 (02/17 405) Respirations: 16 PER MINUTE (02/17 405) SpO2: 97 % (02/17 405) O2 Device: None (Room air) (02/17 405) BP: (123-130)/(53-65) Temp: [36.6 C (97.9 F)-36.8 C (98.3 F)] Pulse: [68-81] Respirations: [16 PER MINUTE-18 PER MINUTE] SpO2: [97 %-99 %] O2 Device: None (Room air) Vitals: 02/15/23 0925 02/15/23 1447 02/16/23 1548 Weight: 95.3 kg (210 lb) 95.3 kg (210 lb) 95.2 kg (209 lb 12.8 oz) Intake/Output Summary: (Last 24 hours) Intake/Output Summary (Last 24 hours) at 02/17/2023 0713 Last data filed at 02/17/2023 0645 Gross per 24 hour Intake 2420 ml Output 975 ml Net 1445 ml Physical Exam: ECOG performance status is 3, Capable of only limited selfcare, confined to bed or chair more than 50% of waking hours Vital signs and nursing notes reviewed General: Alert, oriented, no distress. Eyes: conjunctiva clear, pupils equal ENT: mucous membranes moist, no mucositis noted. Dentures in place CV: irregular rhythm, no murmur, 1+ LE edema Pulm: CTAB, no wheezing/rales Abd: Soft, Nontender, Nondistended, no abnormal organ enlargement/mass Ext: No joint deformities or swelling, normal range of motion Derm: no rashes, petechiae Psych: No anxiety noted Lab Review: CBC w diff Lab Results Component Value Date/Time WBC 18.2 (H) 02/17/2023 04:07 AM RBC 2.20 (L) 02/17/2023 04:07 AM HGB 7.9 (L) 02/17/2023 04:07 AM HCT 23.0 (L) 02/17/2023 04:07 AM MCV 104.4 (H) 02/17/2023 04:07 AM MCH 36.0 (H) 02/17/2023 04:07 AM MCHC 34.5 02/17/2023 04:07 AM RDW 18.7 (H) 02/17/2023 04:07 AM PLTCT 47 (L) 02/17/2023 04:07 AM MPV 9.9 02/17/2023 04:07 AM Lab Results Component Value Date/Time ANC 0.36 (L) 02/17/2023 04:07 AM Comprehensive Metabolic Profile Lab Results Component Value Date/Time NA 136 (L) 02/17/2023 04:07 AM K 4.0 02/17/2023 04:07 AM CL 105 02/17/2023 04:07 AM CO2 22 02/17/2023 04:07 AM GAP 9 02/17/2023 04:07 AM BUN 14 02/17/2023 04:07 AM CR 1.16 02/17/2023 04:07 AM GLU 111 (H) 02/17/2023 04:07 AM Lab Results Component Value Date/Time CA 9.0 02/17/2023 04:07 AM PO4 3.4 02/17/2023 04:07 AM ALBUMIN 3.6 02/17/2023 04:07 AM TOTPROT 5.8 (L) 02/17/2023 04:07 AM ALKPHOS 38 02/17/2023 04:07 AM AST 18 02/17/2023 04:07 AM ALT 4 (L) 02/17/2023 04:07 AM TOTBILI 1.0 02/17/2023 04:07 AM Radiology Review: Pertinent radiology reviewed and discussed in assessment and plan. Britt Stevens MD Pager [phone] * Ana Kathleen MD - 02/16/2023 10:41 AM CDT Cardiology Daily Progress Note [facility] Admission Date: 02/13/2023 Assessment/Plan: Principal Problem: Acute myeloid leukemia not having achieved remission (HCC) Active Problems: 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 Type 2 diabetes mellitus (HCC) Essential (primary) hypertension Gastro-esophageal reflux disease without esophagitis Hyperlipidemia Longstanding persistent atrial fibrillation (HCC) Moderate malnutrition (HCC) Assessment: 1. Coronary artery disease, status post CABG x3 in 2007 Patient was evaluated with a 2D echo Doppler study on 02/15/2023-normal LVEF = 60%, mild RV dilatation with preserved systolic function, moderate to severe TR, mild pulmonary hypertension, estimated PAP = 49 mmHg 2. Recurrent chest pain with exertion during this hospitalization 3. Permanent atrial fibrillation-patient is anticoagulated with apixaban-asympt omatic with heart palpitations 4. History of tachycardia/bradycardia syndrome, status post PPM implant 5. Primary hypertension-on metoprolol 6. ODETTE 7. Valvular disorder- moderate to severe TR by the echo dated 02/12/2023 8. Acute myeloid leukemia-currently being worked up 9. Generalized weakness, overall poor functional status due to underlying comor bidities and age Plan: 1. Continue current medications 2. Complete the regadenoson MPI 3. Continue the apixaban as long as considered low risk of bleeding from a onco logical standpoint We will continue to follow. __ Subjective: Patient appears pale, today he is out of the bed walking in the nagy way with PT Allergies: Ciprofloxacin, Clonidine, Amiodarone, Xwuiude-tit-wcf reductase inhi bitors, Mirabegron, and Nsaids (non-steroidal anti-inflammatory drug) Medications: Scheduled Meds:acyclovir (ZOVIRAX) tablet 800 mg, 800 mg, Oral, BID allopurinoL (ZYLOPRIM) tablet 300 mg, 300 mg, Oral, QDAY CHOLEcalciferoL (vitamin D3) tablet 1,000 Units, 1,000 Units, Oral, BID cyanocobalamin (vitamin B-12) tablet 1,000 mcg, 1,000 mcg, Oral, QDAY dutasteride (AVODART) capsule 0.5 mg, 0.5 mg, Oral, QDAY w/dinner And tamsulosin (FLOMAX) capsule 0.4 mg, 0.4 mg, Oral, QDAY w/dinner hydroxyurea (HYDREA) capsule 1,000 mg, 1,000 mg, Oral, ONCE levoFLOXacin (LEVAQUIN) tablet 750 mg, 750 mg, Oral, QDAY metoprolol tartrate tablet 25 mg, 25 mg, Oral, BID oxybutynin XL (DITROPAN XL) tablet 15 mg, 15 mg, Oral, QDAY pantoprazole DR (PROTONIX) tablet 40 mg, 40 mg, Oral, QDAY(21) posaconazole EC (NOXAFIL) tablet 300 mg, 300 mg, Oral, QDAY w/breakfast Continuous Infusions: PRN and Respiratory Meds:acetaminophen Q6H PRN, dextrose 50% (D50) IV PRN, magne sium sulfate 4 g/50 mL PRN, potassium chloride in water PRN (Duplicating Machine Operator from Rx) OR potassium chloride SR PRN (Duplicating Machine Operator from Rx), sodium chloride 0.9 % TKO infu cele PRN, sodium chloride irrigation PRN Physical Exam: Vital Signs: Last Filed In 24 Hours Vital Signs: 24 Hour Range BP: 124/61 (02/16 814) Temp: 36.8 C (98.3 F) (02/16 814) Pulse: 68 (02/16 814) Respirations: 18 PER MINUTE (02/16 814) SpO2: 98 % (02/16 814) O2 Device: None (Room air) (02/16 814) Height: 182.9 cm (6') (02/15 1447) BP: (110-135)/(46-61) Temp: [36.4 C (97.6 F)-36.8 C (98.3 F)] Pulse: [65-75] Respirations: [15 PER MINUTE-18 PER MINUTE] SpO2: [95 %-100 %] O2 Device: None (Room air) Intake/Outpur Summary: (Last 24 hours) Intake/Output Summary (Last 24 hours) at 02/16/2023 1041 Last data filed at 02/16/2023 0500 Gross per 24 hour Intake 2400 ml Output 2425 ml Net -25 ml Vitals: 02/15/23 0822 02/15/23 0925 02/15/23 1447 Weight: 95.3 kg (210 lb) 95.3 kg (210 lb) 95.3 kg (210 lb) Physical Exam General Appearance: well developed, well nourished, appears stated age, no acute distress Neck Veins: neck veins are not distended Auscultation/Percussion: lungs clear to auscultation, no rales or rhonchi, no wh eezing Cardiac Auscultation: S1, S2 normal, no rub, no gallop, murmurs, irregular regul ar rhythm due to underlying atrial fibrillation Carotid Arteries: no bruits Pedal Pulses: normal symmetric pedal pulses Lower Extremity : no lower extremity edema Abdominal Exam: soft, non-tender, non-distended, normal bowel sounds Neurologic Exam: neurological assessment grossly intact Laboratory Review: 24-hour labs: Results for orders placed or performed during the hospital encounter of 02/13/23 (from the past 24 hour(s)) NT-PRO-BNP Collection Time: 02/15/23 11:52 AM Result Value Ref Range NT-Pro-BNP 1,459.0 (H) <450 pg/mL HIGH SENSITIVITY TROPONIN I, RANDOM Collection Time: 02/15/23 11:52 AM Result Value Ref Range hs Troponin I, Random 7 <20 ng/L POC GLUCOSE Collection Time: 02/15/23 2:01 PM Result Value Ref Range Glucose, POC 164 (H) 70 - 100 MG/DL POC GLUCOSE Collection Time: 02/15/23 5:55 PM Result Value Ref Range Glucose, POC 119 (H) 70 - 100 MG/DL POC GLUCOSE Collection Time: 02/15/23 9:29 PM Result Value Ref Range Glucose, POC 145 (H) 70 - 100 MG/DL CBC AND DIFF CELLULAR THERAPEUTICS Collection Time: 02/16/23 4:31 AM Result Value Ref Range White Blood Cells 16.3 (H) 4.5 - 11.0 K/UL RBC 2.31 (L) 4.4 - 5.5 M/UL Hemoglobin 8.0 (L) 13.5 - 16.5 GM/DL Hematocrit 23.9 (L) 40 - 50 % MCV 103.8 (H) 80 - 100 FL MCH 34.9 (H) 26 - 34 PG MCHC 33.6 32.0 - 36.0 G/DL RDW 17.7 (H) 11 - 15 % Platelet Count 47 (L) 150 - 400 K/UL MPV 9.7 7 - 11 FL Segmented Neutrophils 4 (L) 41 - 77 % Lymphocytes 14 (L) 24 - 44 % Monocytes 20 (H) 4 - 12 % Blast 62 % ANISO PRESENT MACRO PRESENT Platelet Estimate MKD DEC Absolute Neutrophil Count Manual 0.65 (L) 1.8 - 7.0 K/UL PROTIME INR (PT) Collection Time: 02/16/23 4:31 AM Result Value Ref Range Protime 20.1 (H) 9.5 - 14.2 SEC INR 1.8 (H) 0.8 - 1.2 PTT (APTT) Collection Time: 02/16/23 4:31 AM Result Value Ref Range APTT 34.8 24.0 - 36.5 SEC COMPREHENSIVE METABOLIC PANEL CELLULAR THERAPEUTICS Collection Time: 02/16/23 4:31 AM Result Value Ref Range Sodium 136 (L) 137 - 147 MMOL/L Potassium 3.5 3.5 - 5.1 MMOL/L Chloride 104 98 - 110 MMOL/L Glucose 106 (H) 70 - 100 MG/DL Blood Urea Nitrogen 13 7 - 25 MG/DL Creatinine 1.07 0.4 - 1.24 MG/DL Calcium 9.0 8.5 - 10.6 MG/DL Total Protein 5.8 (L) 6.0 - 8.0 G/DL Total Bilirubin 1.0 0.3 - 1.2 MG/DL Albumin 3.6 3.5 - 5.0 G/DL Alk Phosphatase 37 25 - 110 U/L AST (SGOT) 19 7 - 40 U/L CO2 21 21 - 30 MMOL/L ALT (SGPT) 6 (L) 7 - 56 U/L Anion Gap 11 3 - 12 eGFR >60 >60 mL/min MAGNESIUM CELLULAR THERAPEUTICS Collection Time: 02/16/23 4:31 AM Result Value Ref Range Magnesium 1.7 1.6 - 2.6 mg/dL PHOSPHORUS CELLULAR THERAPEUTICS Collection Time: 02/16/23 4:31 AM Result Value Ref Range Phosphorus 3.5 2.0 - 4.5 MG/DL FIBRINOGEN Collection Time: 02/16/23 4:31 AM Result Value Ref Range Fibrinogen 252 200 - 400 MG/DL URIC ACID Collection Time: 02/16/23 4:31 AM Result Value Ref Range Uric Acid 4.4 4.0 - 8.0 MG/DL POC GLUCOSE Collection Time: 02/16/23 8:12 AM Result Value Ref Range Glucose, POC 120 (H) 70 - 100 MG/DL Cardiographics reviewed by me: ECG: not done Telemetry: Atrial fibrillation Echocardiogram: Study dated 02/15/2023-normal LVEF = 60%, moderate to severe TR, mild pulmonary hypertension, estimated PAP = 49 mmHg. Stress test: None Chest X-Ray: none Ana Kathleen MD Cardiology Dept [phone] * Audrey Harris, PT - 02/16/2023 10:33 AM CDT PHYSICAL THERAPY PROGRESS NOTE Name: Braulio López : 1940 Age: 82 y.o. Admission Date: 02/13/2023 LOS: 3 days Date of Service: 02/16/2023 Mobility Patient Turn/Position: Chair Progressive Mobility Level: Walk in hallway Distance Walked (feet): 250 ft Level of Assistance: Assist X1 (CGA) Assistive Device: Walker Activity Limited By: Fatigue Subjective Significant hospital events: 82 y.o. male with past medical history hypertension , hyperlipidemia, ODETTE on CPAP DM, chronic back pain with sacral stimulator PAF , GERD, BPH presents from OSH due to concern for new acute leukemia diagnosis Mental / Cognitive Status: Alert;Oriented;Cooperative;Follows Commands Persons Present: Spouse;Provider Pain: Patient complains of pain;Patient does not rate pain Pain Location: Back Pain Description: Aching Pain Interventions: Patient agrees to participate in therapy with modifications to session;Elevation of extremity;Patient assisted into position of comfort Comments: Room air Ambulation Assist: Independent Mobility in Community with Device;Independent Mob ility in Community with Endurance Limitations Patient Owned Equipment: Single Point Cane;4-Wheeled Walker;Lift Chair Home Situation: Lives with Family;Receives Assistance from Family Type of Home: House Entry Stairs: No Stairs In-Home Stairs: 1-2 Flights of Stairs;Able to Live on One Level Comments: Patient lives in [place], [place] in house with spouse. Spouse completes all IADLs, and intermittently assists with IADLs such as being standby during sh owers, but patient reports typically able to dress self. Has become more difficu lt lately. Patient sleeps on main level in his lift chair, and negotiates upstai rs to bathroom 1x/wk for shower. Patient reports this has been the case for gautam ral months as he has been too fatigued to climb the stairs. ROM ROM Position Assessed: Supine;Seated R LE ROM: WFL R LE ROM Method: Active L LE ROM: WFL L LE ROM Method: Active Strength Strength Position Assessed: Seated Overall Strength: Generalized weakness Posture/Neurological Head Control: Independent Coordination: No Deficits Noted Bed Mobility/Transfer Bed Mobility: Supine to Sit: Use of Rail;Head of Bed Elevated;Standby Assist Transfer Type: Sit to/from Stand Transfer: Assistance Level: To/From;Bed;Standby Assist Transfer: Assistive Device: Roller Walker Transfers: Type Of Assistance: For Safety Considerations;Requires Extra Time;For Balance;For Strength Deficit End Of Activity Status: Up in Chair;Instructed Patient to Request Assist with Mo bility;Nursing Notified;Instructed Patient to Use Call Light (chair alarm on) Gait Gait Distance: 250 feet Gait: Assistance Level: Minimal Assist;Management of Lines;Safety Considerations (CGA) Gait: Assistive Device: Roller Walker Gait: Descriptors: Pace: Slow;Forward trunk flexion;Decreased foot clearance RLE ;Decreased foot clearance LLE;No balance loss;Decreased step length Activity Limited By: Complaint of Fatigue Education Persons Educated: Patient Patient Barriers To Learning: None Noted Interventions: Repetition of Instructions Teaching Methods: Verbal Instruction Patient Response: Verbalized Understanding Topics: Plan/Goals of PT Interventions;Mobility Progression;Importance of Increa sing Activity;Recommend Continued Therapy;Safety Awareness Assessment/Progress Impaired Mobility Due To: Deconditioning;Medical Status Limitation;Decreased Act ivity Tolerance Impaired Strength Due To: Medical Status Limitation;Decreased Activity Tolerance ;Deconditioning Assessment/Progress: Progressing Toward Goals Comments: Patient tolerates session well, ambulating 250' with RW CGA and comple ting bed mobility SBA. No report of SOA or chest pain/discomfort during or after ambulation this date, but does report feeling that the walk today felt more fat iguing than yesterday. Patient likely feeling more weak due to being NPO in prep aration for stress test today. He will benefit from continued therapy to progres s mobility and achieve goals. AM-PAC 6 Clicks Basic Mobility Inpatient Turning from your back to your side while in a flat bed without using bed rails: None Moving from lying on your back to sitting on the side of a flat bed without usin g bedrails : None Moving to and from a bed to a chair (including a wheelchair): A Little Standing up from a chair using your arms (e.g. wheelchair, or bedside chair): A Little To walk in hospital room: A Little Climbing 3-5 steps with a railing: A Lot Basic Mobility Inpatient Raw Score: 19 Standardized (T-scale) Score: 42.48 AM-PAC Basic Mobility Functional Stage: 34-51 Limited Mobility Indoors Goals Goal Formulation: With Patient Time For Goal Achievement: 7 days Patient Will Go Supine To/From Sit: Independently, Ongoing Patient Will Transfer Bed/Chair: Independently, Ongoing Patient Will Transfer Sit to Stand: w/ Stand By Assist, Met Patient Will Ambulate: Greater than 200 Feet, w/ Walker, w/ Stand By Assist, [place] oing Patient Will Go Up / Down Stairs: 1-2 Flights, w/ Stand By Assist, Ongoing Plan Treatment Interventions: Mobility Training;Strengthening;Balance Activities;Endu bhavesh Training Plan Frequency: 5 Days per Week PT Plan for Next Visit: progress gait endurance and quality with device, monitor vitals, low back mobility, stairs PT Discharge Recommendations Recommendation: Home with intermittent supervision/assistance Recommendation for Therapy Post Discharge: Home health Patient Currently Requires Equipment: Owns what is needed Therapist: Audrey Harris PT, DPT [id number] Date: 02/16/2023 * Rolando Stern OT - 02/16/2023 9:51 AM CDT OCCUPATIONAL THERAPY PROGRESS NOTE Name: Braulio López : 1940 Age: 82 y.o. Admission Date: 02/13/2023 LOS: 3 days Date of Service: 02/16/2023 Mobility Patient Turn/Position: Supine Progressive Mobility Level: Stand Level of Assistance: Stand by assistance Assistive Device: None Activity Limited By: Patient request to stop Subjective Pertinent Dx per Physician: 82 y.o. male with past medical history hypertension, hyperlipidemia, ODETTE on CPAP DM, chronic back pain with sacral stimulator PAF, GERD, BPH presents from OSH due to concern for new acute leukemia diagnosis Precautions: Falls Pain / Complaints: Patient has no c/o pain Comments: Patient declining ADLs or ambulation due to stress test later this mor mark. Therapist explained mobility would be good as he will be lying in bed for extended period of time with testing. Patient continued to decline but agreeable to sitting edge of bed, oil mixer testing, and x5 sit <> stands. Objective Psychosocial Status: Participates in Therapy with Encouragement Persons Present: Spouse Home Living Type of Home: House Home Layout: Able to Live on Main Level w/Bedrm/Bathrm Access Bathroom Shower / Tub: Tub/Shower Unit Home Equipment: Cane Comment: pt has been sleeping in lift chair downstairs and going upstairs 1x/wee k for shower due to fatigue and difficulty navigating stairs Prior Function Level Of Weber: Independent with ADLs and functional transfers Lives With: Spouse Other Function Comments: spouse assists with IADL and provides supervision to in termittent assist with ADL as needed ADL's Comment: declined ADLs ADL Mobility Bed Mobility: Supine to Sit: Standby assist Bed Mobility: Sit to Supine: Standby assist Bed Mobility Comments: Patient able to maneuver trunk and LEs independently in a nd out of bed this date with HOB slightly elevated. Transfer Type: Sit to/from stand Transfer: Assistance Level: From;Bed;Standby assist Transfer: Assistive Device: Roller walker End of Activity Status: In bed;Instructed patient to request assist with mobilit y;Instructed patient to use call light Transfer Comments: Patient completed x5 sit <> stands from edge of bed with RW placed anteriorly however, patient did not require use. Stand by assist provided by therapist. Sitting Balance: Dynamic sitting balance;No UE support;Standby assist Gait Comments: Encouraged ambulation this afternoon and goal for 3x/day. Activity Tolerance Endurance: 2/5 Tolerates 10-20 Minutes Exercise w/Multiple Rests Cognition Overall Cognitive Status: WFL to Adequately Complete Self Care Tasks Safely Assessment Assessment: Decreased ADL Status;Decreased Endurance;Decreased Self-Care Trans;D ecreased High-Level ADLs Prognosis: Good Goal Formulation: Patient Comments: Patient may be self-limiting impacting participation with therapy. Caio l benefit from strong encouragement. Patient stating "I'm glad you're making me do this because otherwise I'd just lay here." Dynomometer Cash Applications Analyst Assesment: 3 Trial Average L Hand (lbs) R Hand (lbs) Trial 1 60 60 Trial 2 64 65 Trial 3 59 61 Average 61 62 Cash Applications Analyst Assessment norms according to age grouping: Male: 75+ R AV.7 ; SD: 21 -- L AV ; SD: 17 Cash Applications Analyst strength decrease over time has been correlated to functional decline and m ay be a predictor of ability to participate independently in basic ADLs. AM-PAC 6 Clicks Daily Activity Inpatient Putting on and taking off regular lower body clothes: A Little Bathing (Including washing, rinsing, drying): A Little Toileting, which includes using toilet, bedpan, or urinal: A Little Putting on and taking off regular upper body clothing: None Taking care of personal grooming such as brushing teeth: None Eating meals: None Daily Activity Raw Score: 21 Standardized (T-scale) Score: 44.27 Plan Progress: Progressing Toward Goals OT Frequency: 5x/week OT Plan for Next Visit: LB dressing, grooming standing at sink; mobility and tae e out of bed ADL Goals Patient Will Perform All ADL's: w/ Stand By Assist Functional Transfer Goals Pt Will Perform All Functional Transfers: w/ Stand By Assist OT Discharge Recommendations Recommendation: Home with consistent supervision/assistance Patient Currently Requires Physical Assist With: All home functioning ADLs;All m obility Therapist: Rolando Stern OT Date: 02/16/2023 * Male, Britt Suazo MD - 02/16/2023 8:06 AM CDT Acute Leukemia Service Progress Note Today's Date: 02/16/2023 Name: Braulio López Admission Date: 02/13/2023 LOS: LOS: 3 days Assessment/Plan: Principal Problem: Acute myeloid leukemia not having achieved remission (HCC) Active Problems: 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 Type 2 diabetes mellitus (HCC) Essential (primary) hypertension Gastro-esophageal reflux disease without esophagitis Hyperlipidemia Longstanding persistent atrial fibrillation (HCC) Moderate malnutrition (HCC) Primary diagnosis: Acute Myeloid Leukemia by peripheral blood flow cytometry Cytogenetics/FISH: FISH negative for CBF aml and -17, conventional CG pending [id number]: negative NGS: pending Referring physician: Dora BOWMAN Chemotherapy plan: pending Will perform bone marrow biopsy with complete diagnostic testing including FISH for myeloid/lymphoid Inv 16, 8;21, MLL, 17p ECHO to eval EF given cardiac history TLS/DIC monitoring WBC 02/16/23 16k (14k ) Plan hydrea 1g BID x 3 doses, Hydrea 1g x1 on 02/16 Discussed with my leukemia colleague and cardiology attending re: treatment and challenges with his tolerance of anemia and general performance status. I do not believe he would be a vidaza/stacie candidate, at most A alone to see ho w he would tolerate it. If he would tolerate at all will be dependent on his str ess test, if that has significant abnormalities, he would not be a candidate for intervention and would make and treatment significantly more risk than likely b enefit. I reviewed this with patient and his on 02/16, we reviewed chemotherapy and toxicities, best supportive care with transfusion/infection treatment vs hospice . We reviewed that he needed to consider what quality of life means to him and l et me know so we can tailor his treatment to meet those goals Heme: Monitor CBC for transfusion needs, goal Hgb>7 and platelets >10K Monitor DIC panel Transfusion 02/16/23: None DVT prophylaxis with lovenox unless platelets <50K or signs of DIC Hold LEAD SLOT TECHNICIAN Eliquis 5mg Po BID with upcoming procedures to obtain diagnosis and wit h platelets < 50k Hold LEAD SLOT TECHNICIAN ASA 81mg with thrombocytopenia FEN/Renal: LIANNA, Cr LEAD SLOT TECHNICIAN 1.6, 1.4 on admission Cr Cl 02/16/23: 63.8 (74.2) TLS and uric acid monitoring. Management per institutional algorithm Replace electrolytes per HIGH protocol per cardiology Allopurinol 300mg/day IVF with risk of TLS: NS at 50ml/hr, d/c 02/15 with improvement of LIANNA, downtrend of WBC and good po intake Immunocompromised diet ID: Monitor for fevers. Will draw blood cultures with first fever and start empiric antibiotics Prophylactic anti-infectives: acyclovir, levaquin, posaconazole CV: Hypotension LEAD SLOT TECHNICIAN: volume deplete, improved with IVF. 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 Resume home metoprolol at reduced dose (reduce further to 25mg BID) Chest pain with exertion with PT: EKG normal, trop normal, BNP 1459 rec Reg stress test, carotid duplex and high goal electrolyte LEAD SLOT TECHNICIAN antihypertensives( metoprolol, losartan, chlorthalidone) with -Telemetry monitoring -will hold LEAD SLOT TECHNICIAN eliquis for potential procedures LEAD SLOT TECHNICIAN: Losartan 100mg/day Chlorthalidone 25mg /day Metoprolol tartrate 100mg po BID Repatha 420mg/ml sq monthly ASA 81mg daily GI: GERD: LEAD SLOT TECHNICIAN on omeprazole 20mg Formulary change to protonix Monitor for GI distress and prn antiemetics available. Monitor liver function : BPH: Continue dutasteride & Tamsulosin (formulary sub for them to be separate drugs) Continue LEAD SLOT TECHNICIAN oxybutynin LEAD SLOT TECHNICIAN: dutasteride 0.5 mg-tamsulosin ER 0.4 mg capsule ext.release 24hr mphas Oxybutnynin 15mg extended release Pulm: ODETTE: on CPAP at night Endo: Diabetes Mellitus FSBS not requiring LDCF, d/c FSBS and insulin 02/16 Hold oral hypoglycemics Hgb A1c 5, so with weight loss LEAD SLOT TECHNICIAN likely no longer needs therapy at this time LEAD SLOT TECHNICIAN: Januvia 100mg/day, d/c at discharge MSK: Low back pain: sacral nerve stimulator in place up until October 2022 when had 3rd b ack surgery, during which time was removed Derm: Unstageable sacral wound, wound care rec A & D Abrasion Left first castro, monitor Psych: Monitor and offer support as needed. Code status: Full Code Code status reviewed 02/14/23, patient considering whether to be full vs [id number], wants more time to consider. Britt Stevens MD Hematologic Malignancies and Cellular Therapeutics Available by Voalte and [employer]MS Connect After hours coverage first call via Cooperative Education Coordinator 8pm to 8am: pager [phone] | Voalte "Med Private Nights 6" Subjective: Braulio López is a 82 y.o. male. Patient with some fatigue after s tress test, states he is hungry. No chest pain today. Objective: Medications: Scheduled Meds:acyclovir (ZOVIRAX) tablet 800 mg, 800 mg, Oral, BID allopurinoL (ZYLOPRIM) tablet 300 mg, 300 mg, Oral, QDAY CHOLEcalciferoL (vitamin D3) tablet 1,000 Units, 1,000 Units, Oral, BID cyanocobalamin (vitamin B-12) tablet 1,000 mcg, 1,000 mcg, Oral, QDAY dutasteride (AVODART) capsule 0.5 mg, 0.5 mg, Oral, QDAY w/dinner And tamsulosin (FLOMAX) capsule 0.4 mg, 0.4 mg, Oral, QDAY w/dinner insulin aspart (U-100) (NOVOLOG FLEXPEN U-100 INSULIN) injection PEN 0-6 Units, 0-6 Units, Subcutaneous, ACHS (22) levoFLOXacin (LEVAQUIN) tablet 750 mg, 750 mg, Oral, QDAY metoprolol tartrate tablet 25 mg, 25 mg, Oral, BID oxybutynin XL (DITROPAN XL) tablet 15 mg, 15 mg, Oral, QDAY pantoprazole DR (PROTONIX) tablet 40 mg, 40 mg, Oral, QDAY(21) posaconazole EC (NOXAFIL) tablet 300 mg, 300 mg, Oral, QDAY w/breakfast Continuous Infusions: PRN and Respiratory Meds:acetaminophen Q6H PRN, dextrose 50% (D50) IV PRN, magne sium sulfate 4 g/50 mL PRN, potassium chloride in water PRN (Duplicating Machine Operator from Rx) OR potassium chloride SR PRN (Duplicating Machine Operator from Rx), sodium chloride 0.9 % TKO infu cele PRN, sodium chloride irrigation PRN Vital Signs: Last Filed Vital Signs: 24 Hour Ra nge BP: 128/58 (02/17 400) Temp: 36.8 C (98.2 F) (02/17 400) Pulse: 69 (02/17 400) Respirations: 16 PER MINUTE (02/17 400) SpO2: 95 % (02/17 400) O2 Device: None (Room air) (02/17 400) Height: 182.9 cm (6') (02/15 1447) BP: (106-156)/(46-67) Temp: [36.4 C (97.6 F)-36.8 C (98.2 F)] Pulse: [59-91] Respirations: [15 PER MINUTE-18 PER MINUTE] SpO2: [95 %-100 %] O2 Device: None (Room air) Vitals: 02/15/23 0822 02/15/23 0925 02/15/23 1447 Weight: 95.3 kg (210 lb) 95.3 kg (210 lb) 95.3 kg (210 lb) Intake/Output Summary: (Last 24 hours) Intake/Output Summary (Last 24 hours) at 02/16/2023 0806 Last data filed at 02/16/2023 0500 Gross per 24 hour Intake 2400 ml Output 2675 ml Net -275 ml Physical Exam: ECOG performance status is 3, Capable of only limited selfcare, confined to bed or chair more than 50% of waking hours Vital signs and nursing notes reviewed General: Alert, oriented, no distress. Eyes: conjunctiva clear, pupils equal ENT: mucous membranes moist, no mucositis noted. Dentures in place CV: irregular rhythm, no murmur, 1+ LE edema Pulm: CTAB, no wheezing/rales Abd: Soft, Nontender, Nondistended, no abnormal organ enlargement/mass Ext: No joint deformities or swelling, normal range of motion Derm: no rashes, petechiae Psych: No anxiety noted Lab Review: CBC w diff Lab Results Component Value Date/Time WBC 16.3 (H) 02/16/2023 04:31 AM RBC 2.31 (L) 02/16/2023 04:31 AM HGB 8.0 (L) 02/16/2023 04:31 AM HCT 23.9 (L) 02/16/2023 04:31 AM MCV 103.8 (H) 02/16/2023 04:31 AM MCH 34.9 (H) 02/16/2023 04:31 AM MCHC 33.6 02/16/2023 04:31 AM RDW 17.7 (H) 02/16/2023 04:31 AM PLTCT 47 (L) 02/16/2023 04:31 AM MPV 9.7 02/16/2023 04:31 AM Lab Results Component Value Date/Time ANC 0.65 (L) 02/16/2023 04:31 AM Comprehensive Metabolic Profile Lab Results Component Value Date/Time NA 136 (L) 02/16/2023 04:31 AM K 3.5 02/16/2023 04:31 AM CL 104 02/16/2023 04:31 AM CO2 21 02/16/2023 04:31 AM GAP 11 02/16/2023 04:31 AM BUN 13 02/16/2023 04:31 AM CR 1.07 02/16/2023 04:31 AM GLU 106 (H) 02/16/2023 04:31 AM Lab Results Component Value Date/Time CA 9.0 02/16/2023 04:31 AM PO4 3.5 02/16/2023 04:31 AM ALBUMIN 3.6 02/16/2023 04:31 AM TOTPROT 5.8 (L) 02/16/2023 04:31 AM ALKPHOS 37 02/16/2023 04:31 AM AST 19 02/16/2023 04:31 AM ALT 6 (L) 02/16/2023 04:31 AM TOTBILI 1.0 02/16/2023 04:31 AM Radiology Review: Pertinent radiology reviewed and discussed in assessment and plan. Britt Stevens MD Pager [phone] * Ricarda Stearns, OT - 02/15/2023 3:27 PM CDT OCCUPATIONAL THERAPY ASSESSMENT NOTE Name: Braulio López : 1940 Age: 82 y.o. Admission Date: 02/13/2023 LOS: 2 days Date of Service: 02/15/2023 Mobility Progressive Mobility Level: Walk in hallway Distance Walked (feet): 200 ft Level of Assistance: Assist X1 Assistive Device: Walker Activity Limited By: Fatigue;Pain;Weakness Subjective Pertinent Dx per Physician: 82 y.o. male with past medical history hypertension, hyperlipidemia, ODETTE on CPAP DM, chronic back pain with sacral stimulator PAF, GERD, BPH presents from OSH due to concern for new acute leukemia diagnosis Precautions: Falls Pain / Complaints: Patient agrees to participate in therapy Objective Psychosocial Status: Willing and Cooperative to Participate Persons Present: Spouse Home Living Type of Home: House Home Layout: Able to Live on Main Level w/Bedrm/Bathrm Access Bathroom Shower / Tub: Tub/Shower Unit (shower chair) Home Equipment: Cane (4WW, lift chair) Comment: pt has been sleeping in lift chair downstairs and going upstairs 1x/wee k for shower due to fatigue and difficulty navigating stairs Prior Function Level Of Weber: Independent with ADLs and functional transfers Lives With: Spouse Other Function Comments: spouse assists with IADL and provides supervision to in termittent assist with ADL as needed ADL Mobility Bed Mobility: Supine to Sit: Minimal assist Bed Mobility: Sit to Supine: Minimal assist Bed Mobility Comments: min a for trunk to EOB, LE into bed Transfer Type: Sit to/from stand Transfer: Assistance Level: From;Bed;Minimal assist Transfer: Assistive Device: Roller walker End of Activity Status: In bed;Instructed patient to request assist with mobilit y;Instructed patient to use call light Transfer Comments: CGA Gait Distance: 200 feet Gait: Assistance Level: Minimal assist Gait: Assistive Device: Roller walker Gait Comments: pt ambulates in hallway without rest break. tolerates well, but i s fatigued following Education Persons Educated: Patient Teaching Methods: Verbal Instruction Patient Response: Verbalized Understanding Topics: Role of OT, Goals for Therapy Goal Formulation: With Patient Assessment Assessment: Decreased ADL Status;Decreased Endurance;Decreased Self-Care Trans;D ecreased High-Level ADLs Goal Formulation: Patient Comments: pt is limited by generalized weakness and deconditioning. would benefi t from continued therapies while admitted to maximize safety and independence pr ior to return home with spouse assist AM-PAC 6 Clicks Daily Activity Inpatient Putting on and taking off regular lower body clothes: A Little Bathing (Including washing, rinsing, drying): A Little Toileting, which includes using toilet, bedpan, or urinal: A Little Putting on and taking off regular upper body clothing: None Taking care of personal grooming such as brushing teeth: None Eating meals: None Daily Activity Raw Score: 21 Standardized (T-scale) Score: 44.27 Plan OT Frequency: 5x/week OT Plan for Next Visit: LB dressing, grooming standing at sink ADL Goals Patient Will Perform All ADL's: w/ Stand By Assist Functional Transfer Goals Pt Will Perform All Functional Transfers: w/ Stand By Assist OT Discharge Recommendations Recommendation: Home with consistent supervision/assistance Therapist: Ricarda Stearns OTR/Janis [id number] Date: 02/15/2023 * Jojo Buchanan RN - 02/15/2023 12:45 PM CDT Spoke with patients . Reviewed unit layout and resources available with her including laundry on unit 9, patient showers outside the unit and restrooms on t he unit. Introduced myself and role to the patients , and will visit again once patients test results have returned and a plan has been developed. Harjit lockett is without questions at this time. * Anh Morales, PT - 02/15/2023 9:06 AM CDT PHYSICAL THERAPY PROGRESS NOTE Name: Braulio López : 1940 Age: 82 y.o. Admission Date: 02/13/2023 LOS: 2 days Date of Service: 02/15/2023 Mobility Patient Turn/Position: Chair Progressive Mobility Level: Walk in hallway Distance Walked (feet): 150 ft + 100 ft + 100 ft + 200 ft Level of Assistance: Assist X1 Assistive Device: Walker Activity Limited By: Fatigue;Pain;Weakness Subjective Significant hospital events: 82 y.o. male with past medical history hypertension , hyperlipidemia, ODETTE on CPAP DM, chronic back pain with sacral stimulator PAF , GERD, BPH presents from OSH due to concern for new acute leukemia diagnosis Mental / Cognitive Status: Alert;Oriented;Cooperative Persons Present: Spouse Pain: Patient complains of pain;Patient does not rate pain Pain Location: Back Pain Description: Aching Pain Interventions: Patient agrees to participate in therapy with modifications to session Ambulation Assist: Independent Mobility in Community with Device;Independent Mob ility in Community with Endurance Limitations Patient Owned Equipment: Single Point Cane;4-Wheeled Walker;Lift Chair Home Situation: Lives with Family;Receives Assistance from Family Type of Home: House Entry Stairs: No Stairs In-Home Stairs: 1-2 Flights of Stairs;Able to Live on One Level Comments: Patient lives in [place], [place] in house with spouse. Spouse completes all IADLs, and intermittently assists with IADLs such as being standby during sh owers, but patient reports typically able to dress self. Has become more difficu lt lately. Patient sleeps on main level in his lift chair, and negotiates upstai rs to bathroom 1x/wk for shower. Patient reports this has been the case for gautam ral months as he has been too fatigued to climb the stairs. Bed Mobility/Transfer Bed Mobility: Supine to Sit: Minimal Assist;Assist with Trunk;Use of Rail;Head o f Bed Elevated Transfer Type: Sit to/from Stand Transfer: Assistance Level: To/From;Bed;Bed Side Chair;Minimal Assist Transfer: Assistive Device: Roller Walker Transfers: Type Of Assistance: Verbal Cues;For Safety Considerations End Of Activity Status: Up in Chair;Instructed Patient to Request Assist with Mo bility;Nursing Notified;Instructed Patient to Use Call Light Balance 5x Sit to Stand Result (seconds): 0 5X Sit to Stand Comment:: Requires assist and use of UEs to complete. Patient cl assifies as a high fall risk. 80-85 y/o normal performance mean time is 10.8 +/- 2.6 seconds. Greater than 15 seconds places pt in a moderate recurrent fall risk category in ages 65 years an d older. References: Bret Gates., et al. Tte-un-kbmze test: performance and determinants acr oss the age span. [employer] Exerc Sci. 2010;18:4235-240. Niranjan S, Madhuri C, Erick R, Hang P, Kyaw G, Grant P, Giselle A. A simple clinical scale to stratify risk of recurrent falls in [facility] adults aged 65 years and older. Inspection Engineer. 2010 Sep;90(4):550-60. Gait Gait Distance: 150 feet + 100 feet + 100 feet + 200 feet Gait: Assistance Level: Minimal Assist Gait: Assistive Device: Roller Walker Gait: Descriptors: Pace: Slow;Forward trunk flexion;Decreased foot clearance RLE ;Decreased foot clearance LLE;No balance loss;Decreased step length Comments: Patient with increased forward flexion this date, more effortful ambul ation. Endorses slight chest pain toward end of ambulation, vitals assessed as n oted below. Patient reports he has had this pain for many years with over-exerti on and it goes away with rest. Notified RN of chest pain and noted patient not o n telemetry. Activity Limited By: Complaint of Pain 02/15/23 0925 Vitals* Activity Post Activity Pulse 91 BP Patient Position Chair BP (!) 156/67 O2 Device None (Room air) SpO2 100 % Assessment/Progress Impaired Mobility Due To: Deconditioning;Medical Status Limitation;Decreased Act ivity Tolerance Assessment/Progress: Should Improve w/ Continued PT Comments: Patient more fatigued this date and limited by back pain. Endorses ons et of chest pain at end of session- see above, notified RN as patient not on tel emetry and vitals assessed. Patient to benefit from ongoing therapy intervention . AM-PAC 6 Clicks Basic Mobility Inpatient Turning from your back to your side while in a flat bed without using bed rails: None Moving from lying on your back to sitting on the side of a flat bed without usin g bedrails : A Little Moving to and from a bed to a chair (including a wheelchair): A Little Standing up from a chair using your arms (e.g. wheelchair, or bedside chair): A Little To walk in hospital room: A Little Climbing 3-5 steps with a railing: A Lot Basic Mobility Inpatient Raw Score: 18 Standardized (T-scale) Score: 41.05 Goals Goal Formulation: With Patient Time For Goal Achievement: 7 days Patient Will Go Supine To/From Sit: Independently Patient Will Transfer Bed/Chair: Independently Patient Will Transfer Sit to Stand: w/ Stand By Assist Patient Will Ambulate: Greater than 200 Feet, w/ Walker, w/ Stand By Assist Patient Will Go Up / Down Stairs: 1-2 Flights, w/ Stand By Assist Plan Treatment Interventions: Mobility Training;Strengthening;Balance Activities;Endu bhavesh Training Plan Frequency: 5 Days per Week PT Plan for Next Visit: progress gait endurance and quality with device, monitor vitals, low back mobility, stairs PT Discharge Recommendations Recommendation: Home with intermittent supervision/assistance Recommendation for Therapy Post Discharge: Home health Patient Currently Requires Equipment: Owns what is needed Therapist: Anh Morales PT, DPT [id number] Date: 02/15/2023 * Male, Britt Suazo MD - 02/15/2023 7:13 AM CDT Acute Leukemia Service Progress Note Today's Date: 02/15/2023 Name: Braulio López Admission Date: 02/13/2023 LOS: LOS: 2 days Assessment/Plan: Principal Problem: Acute myeloid leukemia not having achieved remission (HCC) Active Problems: 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 Type 2 diabetes mellitus (HCC) Essential (primary) hypertension Gastro-esophageal reflux disease without esophagitis Hyperlipidemia Longstanding persistent atrial fibrillation (HCC) Moderate malnutrition (HCC) Primary diagnosis: Acute Myeloid Leukemia by peripheral blood flow cytometry Cytogenetics/FISH: pending NGS: pending Referring physician: Via Kristen BOWMAN Chemotherapy plan: pending Will perform bone marrow biopsy with complete diagnostic testing including FISH for myeloid/lymphoid Inv 16, 8;21, MLL, 17p ECHO to eval EF given cardiac history TLS/DIC monitoring WBC 02/15/23 14k (17) Plan hydrea 1g BID x 3 doses, re-evaluate further dosing 02/15 Await TP53 status to discuss treatment options including HMA + stacie, HMA alone or BSC Heme: Monitor CBC for transfusion needs, goal Hgb>7 and platelets >10K Monitor DIC panel Transfusion 02/15/23: None DVT prophylaxis with lovenox unless platelets <50K or signs of DIC Hold LEAD SLOT TECHNICIAN Eliquis 5mg Po BID with upcoming procedures to obtain diagnosis and wit h platelets < 50k Hold LEAD SLOT TECHNICIAN ASA 81mg with thrombocytopenia FEN/Renal: LIANNA, Cr LEAD SLOT TECHNICIAN 1.6, 1.4 on admission Cr Cl 02/15/23: 74.2 TLS and uric acid monitoring. Management per institutional algorithm Replace electrolytes per HIGH protocol per cardiology Allopurinol 300mg/day IVF with risk of TLS: NS at 50ml/hr, d/c 02/15 with improvement of LIANNA, downtrend of WBC and good po intake Immunocompromised diet ID: Monitor for fevers. Will draw blood cultures with first fever and start empiric antibiotics Prophylactic anti-infectives: acyclovir, levaquin, posaconazole CV: Hypotension LEAD SLOT TECHNICIAN: volume deplete, improved with IVF. 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 Demand due to lower hgb, obtain EKG, trop, B PHYSIOTHERAPY PRACTICE MANAGER and obtain cardiology consult for recs 02/15 rec Reg stress test, carotid duplex and high goal electrolyte LEAD SLOT TECHNICIAN antihypertensives( metoprolol, losartan, chlorthalidone) with -Telemetry monitoring -will hold LEAD SLOT TECHNICIAN eliquis for potential procedures LEAD SLOT TECHNICIAN: Losartan 100mg/day Chlorthalidone 25mg /day Metoprolol tartrate 100mg po BID Repatha 420mg/ml sq monthly ASA 81mg daily GI: GERD: LEAD SLOT TECHNICIAN on omeprazole 20mg Formulary change to protonix Monitor for GI distress and prn antiemetics available. Monitor liver function : BPH: Continue dutasteride & Tamsulosin (formulary sub for them to be separate drugs) Continue LEAD SLOT TECHNICIAN oxybutynin LEAD SLOT TECHNICIAN: dutasteride 0.5 mg-tamsulosin ER 0.4 mg capsule ext.release 24hr mphas Oxybutnynin 15mg extended release Pulm: ODETTE: on CPAP at night Endo: Diabetes Mellitus Plan FSBS and LDCF Hold oral hypoglycemics Follow A1c LEAD SLOT TECHNICIAN: Januvia 100mg/day MSK: Low back pain: sacral nerve stimulator in place up until October 2022 when had 3rd b ack surgery, during which time was removed Derm: Unstageable sacral wound, wound care rec A & D Abrasion Left first castro, monitor Psych: Monitor and offer support as needed. Code status: Full Code Code status reviewed 02/14/23, patient considering whether to be full vs DNAR-FI, wants more time to consider. Britt Stevens MD Hematologic Malignancies and Cellular Therapeutics Available by Voalte and AMS Connect After hours coverage first call via Cooperative Education Coordinator 8pm to 8am: pager [phone] | Voalte "Med Private Nights 6" Subjective: Braulio López is a 82 y.o. male. Chest pain with walking with PT, resolved upon sitting down. Patient states didn't get much sleep with interrupti ons overnight, hoping to get more sleep tonight. He states his chest pain has occurred with exertion for 'years' Objective: Medications: Scheduled Meds:acyclovir (ZOVIRAX) tablet 800 mg, 800 mg, Oral, BID allopurinoL (ZYLOPRIM) tablet 300 mg, 300 mg, Oral, QDAY CHOLEcalciferoL (vitamin D3) tablet 1,000 Units, 1,000 Units, Oral, BID cyanocobalamin (vitamin B-12) tablet 1,000 mcg, 1,000 mcg, Oral, QDAY dutasteride (AVODART) capsule 0.5 mg, 0.5 mg, Oral, QDAY w/dinner And tamsulosin (FLOMAX) capsule 0.4 mg, 0.4 mg, Oral, QDAY w/dinner hydroxyurea (HYDREA) capsule 1,000 mg, 1,000 mg, Oral, BID insulin aspart (U-100) (NOVOLOG FLEXPEN U-100 INSULIN) injection PEN 0-6 Units, 0-6 Units, Subcutaneous, ACHS (22) levoFLOXacin (LEVAQUIN) tablet 750 mg, 750 mg, Oral, QDAY metoprolol tartrate (LOPRESSOR) tablet 50 mg, 50 mg, Oral, BID oxybutynin XL (DITROPAN XL) tablet 15 mg, 15 mg, Oral, QDAY pantoprazole DR (PROTONIX) tablet 40 mg, 40 mg, Oral, QDAY(21) posaconazole EC (NOXAFIL) tablet 300 mg, 300 mg, Oral, BID w/meals Followed by posaconazole EC (NOXAFIL) tablet 300 mg, 300 mg, Oral, QDAY w/breakfast Continuous Infusions: sodium chloride 0.9 % infusion 50 mL/hr at 02/14/23 1830 PRN and Respiratory Meds:acetaminophen Q6H PRN, dextrose 50% (D50) IV PRN, sodiu m chloride 0.9 % TKO infusion PRN, sodium chloride irrigation PRN Vital Signs: Last Filed Vital Signs: 24 Hour Ra nge BP: 122/61 (02/15 353) Temp: 36.6 C (97.8 F) (02/15 353) Pulse: 69 (02/15 353) Respirations: 16 PER MINUTE (02/15 353) SpO2: 96 % (02/15 353) O2 Device: None (Room air) (02/15 353) BP: (108-140)/(49-66) Temp: [36.4 C (97.6 F)-36.9 C (98.5 F)] Pulse: [59-69] Respirations: [16 PER MINUTE-20 PER MINUTE] SpO2: [96 %-99 %] O2 Device: None (Room air) Vitals: 02/13/23200602/14/23 08 Weight: 95.5 kg (210 lb 9.6 oz) 95.3 kg (210 lb) Intake/Output Summary: (Last 24 hours) Intake/Output Summary (Last 24 hours) at 02/15/2023 0713 Last data filed at 02/15/2023 0646 Gross per 24 hour Intake 3027.17 ml Output 1475 ml Net 1552.17 ml Physical Exam: ECOG performance status is 3, Capable of only limited selfcare, confined to bed or chair more than 50% of waking hours Vital signs and nursing notes reviewed General: Alert, oriented, no distress. Eyes: conjunctiva clear, pupils equal ENT: mucous membranes moist, no mucositis noted. Dentures in place CV: irregular rhythm, no murmur, no lower extremity edema Pulm: CTAB, no wheezing/rales Abd: Soft, Nontender, Nondistended, no abnormal organ enlargement/mass Ext: No joint deformities or swelling, normal range of motion Derm: no rashes, petechiae Psych: No anxiety noted Lab Review: CBC w diff Lab Results Component Value Date/Time WBC 14.6 (H) 02/15/2023 04:47 AM RBC 2.20 (L) 02/15/2023 04:47 AM HGB 7.6 (L) 02/15/2023 04:47 AM HCT 22.6 (L) 02/15/2023 04:47 AM MCV 103.0 (H) 02/15/2023 04:47 AM MCH 34.7 (H) 02/15/2023 04:47 AM MCHC 33.7 02/15/2023 04:47 AM RDW 17.9 (H) 02/15/2023 04:47 AM PLTCT 46 (L) 02/15/2023 04:47 AM MPV 9.5 02/15/2023 04:47 AM Lab Results Component Value Date/Time ANC 1.03 (L) 02/14/2023 04:41 AM Comprehensive Metabolic Profile Lab Results Component Value Date/Time NA 138 02/15/2023 04:47 AM K 3.5 02/15/2023 04:47 AM CL 107 02/15/2023 04:47 AM CO2 22 02/15/2023 04:47 AM GAP 9 02/15/2023 04:47 AM BUN 16 02/15/2023 04:47 AM CR 0.92 02/15/2023 04:47 AM GLU 94 02/15/2023 04:47 AM Lab Results Component Value Date/Time CA 9.0 02/15/2023 04:47 AM PO4 3.2 02/15/2023 04:47 AM ALBUMIN 3.3 (L) 02/15/2023 04:47 AM TOTPROT 5.5 (L) 02/15/2023 04:47 AM ALKPHOS 33 02/15/2023 04:47 AM AST 17 02/15/2023 04:47 AM ALT 6 (L) 02/15/2023 04:47 AM TOTBILI 1.0 02/15/2023 04:47 AM Radiology Review: Pertinent radiology reviewed and discussed in assessment and plan. Britt Stevens MD Pager [phone] * Audrey Vaughn RN - 02/14/2023 6:16 PM CDT I have reviewed the notes, assessments, and/or procedures performed by Brianna marr, and concur with her/his documentation unless otherwise noted. * Anjelica Valentine RD - 02/14/2023 11:34 AM CDT CLINICAL NUTRITION Clinical Nutrition Initial Assessment Name: Braulio López : 1940 Age: 82 y.o. Admission Date: 02/13/2023 LOS: 1 day Date of Service: 02/14/2023 Recommendation: Continue immunosuppressed diet. Please remind/encourage pt to make PO attempt s TID. Recommend Boost/High protein shakes at least 1x/day and additional if pt does not order meals. Comments: 82 y.o. male with PMH HTN, HLD, ODETTE, DM, PAF, and GERD, admitted from outside [facility] due to concern for acute leukemia. Admitted for acute evaluation and delma gemyeimi. Flagged to dietitian as potentially at risk. Pt is on the immunosuppress ed diet and reports a poor appetite for several months. States he generally trie s to eat 2 meals/day. Often eats breakfast (gives examples of hines and eggs, pa ncakes, Welsh toast, fruit, or yogurt - notes a small portion size) and a later dinner (often soup or vegetables). States he frequently skips lunch. Reports ho memade protein shakes 3-4x/week made with whole milk, ice cream, and protein pow domingo. Reports he dislikes the taste of meat except for hines. He reports 50# wt l oss from [facility] 265# over estimated 5-6 month timeframe; review of outside records shows 233# weighed 6 months ago (still notable for significant loss per time). P t politely declined nutrition focused physical exam on this date, though wt loss and reported intakes meet criteria for malnutrition. RD educated pt on importan ce of consistent nutrition intakes and emphasizing nutrient dense and high prote in options. Encouraged pt to utilize protein shakes at least 1x/day to ease the work of intake, and advised pt to avoid skipped meals. Will classify at acute nu tritional risk and continue to follow. Nutrition Assessment of Patient: Admit Weight: 95.5 kg (source unknown; first standing 95.3kg); ; Desired Weight : 83.3 kg BMI (Calculated): 28.56; BMI Categories Adult: Over Weight: 25-29.9; Pertinent Allergies/Intolerances: none Pertinent Labs: WBC 17.1, ANC 1.03, Plt 44; Pertinent Meds: daily vitamin D3, vi tamin B12, protonix; Unintentional Weight Loss: 10% in 6 months (significant) (p er outside records) Oral Diet Order: Immunosuppressed; Current Oral Intake: Inadequate Estimated Calorie Needs: 8798-4671 (30-32 kcal/kg DBW) Estimated Protein Needs: 100-125 (1.2-1.5 gm/kg DBW) Malnutrition Assessment: Malnutrition present on admission ICD-10 code E44: Chronic illness/Moderate non-severe malnutrition Energy intake: Less than 75% of estimated energy requirement for 1 month or more, Weight loss: 10% x 6 months Malnutrition Interventions: Recommended meals TID and Boost/protein shake at emelyn [address] 1/day Nutrition Focused Physical Assessment: Loss of Subcutaneous Fat: (pending per pt request); ; Muscle Wasting: (pending per pt request); ; Edema: (BLE/pedal non-pitting); ; Pressure Injury: none Comment: +BM LEAD SLOT TECHNICIAN Nutrition Diagnosis: Inadequate protein-energy intake Etiology: poor appetite Signs & Symptoms: pt reported intakes in setting of new AML Intervention / Plan: Education/recommendations to promote kcal/protein intake Monitor intake/adequacy, wt trends, labs, meds, GI status, I/Os Goals: Patient to consume >50% of meals/supplements Time Frame: Within 72 hours Verbalize understanding of diet (high protien, immunosuppressed) Time Frame: Prior to discharge Anjelica Valentine MS, RDN, LD Clinical Dietitian - Department of Clinical Nutrition Available on Voalte * Anh Morales, PT - 02/14/2023 11:33 AM CDT PHYSICAL THERAPY ASSESSMENT Name: Braulio López : 1940 Age: 82 y.o. Admission Date: 02/13/2023 LOS: 1 day Date of Service: 02/14/2023 Mobility Patient Turn/Position: Chair Progressive Mobility Level: Walk in hallway Distance Walked (feet): 200 ft +100 ft Level of Assistance: Assist X1 Assistive Device: Walker Activity Limited By: Fatigue Subjective Significant hospital events: 82 y.o. male with past medical history hypertension , hyperlipidemia, ODETTE on CPAP DM, chronic back pain with sacral stimulator PAF , GERD, BPH presents from OSH due to concern for new acute leukemia diagnosis Mental / Cognitive Status: Alert;Oriented;Cooperative Persons Present: Physical Therapist Ambulation Assist: Independent Mobility in Community with Device;Independent Mob ility in Community with Endurance Limitations Patient Owned Equipment: Single Point Cane;4-Wheeled Walker;Lift Chair Home Situation: Lives with Family;Receives Assistance from Family Type of Home: House Entry Stairs: No Stairs In-Home Stairs: 1-2 Flights of Stairs;Able to Live on One Level Comments: Patient lives in [place], [place] in house with spouse. Spouse completes all IADLs, and intermittently assists with IADLs such as being standby during sh owers, but patient reports typically able to dress self. Has become more difficu lt lately. Patient sleeps on main level in his lift chair, and negotiates upstai rs to bathroom 1x/wk for shower. Patient reports this has been the case for gautam ral months as he has been too fatigued to climb the stairs. Strength Strength Position Assessed: Seated Overall Strength: Generalized weakness;WFL;No focal deficits noted Bed Mobility/Transfer Bed Mobility: Supine to Sit: Standby Assist;Use of Rail Transfer Type: Sit to/from Stand Transfer: Assistance Level: To/From;Bed;Minimal Assist (CGA) Transfer: Assistive Device: Roller Walker Transfers: Type Of Assistance: Verbal Cues End Of Activity Status: Up in Chair;Instructed Patient to Request Assist with Mo bility;Instructed Patient to Use Call Light Balance 5X Sit to Stand Comment:: Will assess at next encounter, anticipate requires use of UEs. Gait Gait Distance: 200 feet +100 ft Gait: Assistance Level: Minimal Assist (CGA) Gait: Assistive Device: Roller Walker Gait: Descriptors: Pace: Slow;Forward trunk flexion;Decreased foot clearance RLE ;Decreased foot clearance LLE;No balance loss;Decreased step length Activity Limited By: Lines/Leads Education Persons Educated: Patient Patient Barriers To Learning: None Noted Topics: Plan/Goals of PT Interventions;Mobility Progression;Importance of Increa sing Activity;Recommend Continued Therapy Assessment/Progress Impaired Mobility Due To: Deconditioning;Medical Status Limitation;Decreased Act ivity Tolerance Assessment/Progress: Should Improve w/ Continued PT;Expect Good Progress AM-PAC 6 Clicks Basic Mobility Inpatient Turning from your back to your side while in a flat bed without using bed rails: None Moving from lying on your back to sitting on the side of a flat bed without usin g bedrails : A Little Moving to and from a bed to a chair (including a wheelchair): A Little Standing up from a chair using your arms (e.g. wheelchair, or bedside chair): A Little To walk in hospital room: A Little Climbing 3-5 steps with a railing: A Lot Basic Mobility Inpatient Raw Score: 18 Standardized (T-scale) Score: 41.05 Goals Goal Formulation: With Patient Time For Goal Achievement: 7 days Patient Will Go Supine To/From Sit: Independently Patient Will Transfer Bed/Chair: Independently Patient Will Transfer Sit to Stand: w/ Stand By Assist Patient Will Ambulate: Greater than 200 Feet, w/ Walker, w/ Stand By Assist Patient Will Go Up / Down Stairs: 1-2 Flights, w/ Stand By Assist Plan Treatment Interventions: Mobility Training;Strengthening;Balance Activities;Endu bhavesh Training Plan Frequency: 5 Days per Week PT Plan for Next Visit: progress gait endurance and quality with device, stairs, consider gym activity and outcome measure PT Discharge Recommendations Recommendation: Home with intermittent supervision/assistance Recommendation for Therapy Post Discharge: Home health Patient Currently Requires Equipment: Owns what is needed Therapist Anh Morales, PT, DPT [id number] Date 02/14/2023 * Male, Britt Suazo MD - 02/14/2023 7:13 AM CDT Acute Leukemia Service Progress Note Today's Date: 02/14/2023 Name: Braulio López Admission Date: 02/13/2023 LOS: LOS: 1 day Assessment/Plan: Principal Problem: Acute myeloid leukemia not having achieved remission (HCC) Active Problems: 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 Type 2 diabetes mellitus (HCC) Essential (primary) hypertension Gastro-esophageal reflux disease without esophagitis Hyperlipidemia Longstanding persistent atrial fibrillation (HCC) Primary diagnosis: Acute Myeloid Leukemia by peripheral blood flow cytometry Cytogenetics/FISH: pending NGS: pending Referring physician: Via Kristen BOWMAN Chemotherapy plan: pending Will perform bone marrow biopsy with complete diagnostic testing including FISH for myeloid/lymphoid Inv 16, 8;21, MLL, 17p ECHO to eval EF given cardiac history TLS/DIC monitoring WBC 02/14/23 17k, Chemotherapy consent for the following chemotherapy drugs, with side effects inc luding but not limited to: Hydroxyurea: mucositis, low blood counts Other common toxicities were listed in the chemotherapy consent Questions were answered. Consent signed with digital consent and available in EHR Plan hydrea 1g BID x 3 doses, re-evaluate further dosing 02/15 Await TP53 status to discuss treatment options including HMA + stacie, HMA alone or BSC Heme: Monitor CBC for transfusion needs, goal Hgb>7 and platelets >10K Monitor DIC panel Transfusion 02/14/23: None DVT prophylaxis with lovenox unless platelets <50K or signs of DIC Hold LEAD SLOT TECHNICIAN Eliquis 5mg Po BID with upcoming procedures to obtain diagnosis and wit h platelets < 50k Hold LEAD SLOT TECHNICIAN ASA 81mg with thrombocytopenia FEN/Renal: LIANNA, Cr LEAD SLOT TECHNICIAN 1.6, 1.4 on admission Cr Cl 02/14/23: 58.9 TLS and uric acid monitoring. Management per institutional algorithm Replace electrolytes per standard protocol unless signs of TLS or LIANNA Allopurinol 300mg/day IVF with risk of TLS: NS at 50ml/hr Immunocompromised diet ID: Monitor for fevers. Will draw blood cultures with first fever and start empiric antibiotics Prophylactic anti-infectives: acyclovir, levaquin, posaconazole CV: Hypotension LEAD SLOT TECHNICIAN: volume deplete, improved with IVF. 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 Monitor liver function : BPH: Continue dutasteride & Tamsulosin (formulary sub for them to be separate drugs) Continue LEAD SLOT TECHNICIAN oxybutynin LEAD SLOT TECHNICIAN: dutasteride 0.5 mg-tamsulosin ER 0.4 mg capsule ext.release 24hr mphas Oxybutnynin 15mg extended release Pulm: ODETTE: on CPAP at night Endo: Diabetes Mellitus Plan FSBS and LDCF Hold oral hypoglycemics Follow A1c LEAD SLOT TECHNICIAN: Januvia 100mg/day MSK: Low back pain: sacral nerve stimulator in place up until October 2022 when had 3rd b ack surgery, during which time was removed Derm: Unstageable sacral wound, wound care rec A & D Abrasion Left first castro, monitor Psych: Monitor and offer support as needed. Code status: Full Code Code status reviewed 02/14/23, patient considering whether to be full vs DNAR-FI, wants more time to consider. Britt Stevens MD Hematologic Malignancies and Cellular Therapeutics Available by Voalte and AMS Connect After hours coverage first call via Cooperative Education Coordinator 8pm to 8am: pager [phone] | Voalte "Med Private Nights 6" Subjective: Braulio López is a 82 y.o. male. Patient states weakness over la st few months. also approximate this to being about a year. Generally not a ctive but was more active in May than currently. Had back surgery October 2022, didn't have PT/OT after per patient preference. He is able to get up to sit in a recliner, dress himself, could go to kitchen to fix himself a meal but doesn't. notes sleeping quite a bit more lately, and loss of weight significant. Objective: Medications: Scheduled Meds:allopurinoL (ZYLOPRIM) tablet 100 mg, 100 mg, Oral, QDAY [Held by Provider] chlorthalidone (HYGROTON) tablet 25 mg, 25 mg, Oral, QDAY CHOLEcalciferoL (vitamin D3) tablet 1,000 Units, 1,000 Units, Oral, QDAY cyanocobalamin (vitamin B-12) tablet 1,000 mcg, 1,000 mcg, Oral, QDAY [Held by Provider] dutasteride (AVODART) capsule 0.5 mg, 0.5 mg, Oral, QDAY And [Held by Provider] tamsulosin (FLOMAX) capsule 0.4 mg, 0.4 mg, Oral, QDAY enoxaparin (LOVENOX) syringe 40 mg, 40 mg, Subcutaneous, QDAY insulin aspart (U-100) (NOVOLOG FLEXPEN U-100 INSULIN) injection PEN 0-6 Units, 0-6 Units, Subcutaneous, ACHS (22) [Held by Provider] metoprolol tartrate (LOPRESSOR) tablet 100 mg, 100 mg, Oral, BID oxybutynin XL (DITROPAN XL) tablet 15 mg, 15 mg, Oral, QDAY pantoprazole DR (PROTONIX) tablet 40 mg, 40 mg, Oral, QDAY(21) Continuous Infusions: sodium chloride 0.9 % infusion 100 mL/hr at 02/14/23 0647 PRN and Respiratory Meds:acetaminophen Q6H PRN, dextrose 50% (D50) IV PRN, sodiu m chloride 0.9 % TKO infusion PRN, sodium chloride irrigation PRN Vital Signs: Last Filed Vital Signs: 24 Hour Ra nge BP: 145/70 (02/14 645) Temp: 36.4 C (97.6 F) (02/14 645) Pulse: 63 (02/14 645) Respirations: 18 PER MINUTE (02/14 645) SpO2: 97 % (02/14 645) O2 Device: None (Room air) (02/14 645) Height: 182.9 cm (6') (02/13 2007) BP: (110-145)/(56-70) Temp: [36.3 C (97.4 F)-36.5 C (97.7 F)] Pulse: [61-70] Respirations: [18 PER MINUTE] SpO2: [95 %-99 %] O2 Device: None (Room air) Vitals: 02/13/232006 Weight: 95.5 kg (210 lb 9.6 oz) Intake/Output Summary: (Last 24 hours) Intake/Output Summary (Last 24 hours) at 02/14/2023 0714 Last data filed at 02/14/2023 0645 Gross per 24 hour Intake 977 ml Output 1200 ml Net -223 ml Physical Exam: ECOG performance status is 3, Capable of only limited selfcare, confined to bed or chair more than 50% of waking hours Vital signs and nursing notes reviewed General: Alert, oriented, no distress. Eyes: conjunctiva clear, pupils equal ENT: mucous membranes moist, no mucositis noted. Dentures in place CV: irregular rhythm, no murmur, no lower extremity edema Pulm: CTAB, no wheezing/rales Abd: Soft, Nontender, Nondistended, no abnormal organ enlargement/mass Ext: No joint deformities or swelling, normal range of motion Derm: no rashes, petechiae Psych: No anxiety noted Lab Review: CBC w diff Lab Results Component Value Date/Time WBC 17.1 (H) 02/14/2023 04:41 AM RBC 2.50 (L) 02/14/2023 04:41 AM HGB 8.6 (L) 02/14/2023 04:41 AM HCT 26.0 (L) 02/14/2023 04:41 AM MCV 104.0 (H) 02/14/2023 04:41 AM MCH 34.6 (H) 02/14/2023 04:41 AM MCHC 33.2 02/14/2023 04:41 AM RDW 17.8 (H) 02/14/2023 04:41 AM PLTCT 44 (L) 02/14/2023 04:41 AM MPV 8.8 02/14/2023 04:41 AM Lab Results Component Value Date/Time ANC 0.65 (L) 02/13/2023 08:30 PM Comprehensive Metabolic Profile Lab Results Component Value Date/Time NA 138 02/14/2023 04:41 AM K 3.6 02/14/2023 04:41 AM CL 104 02/14/2023 04:41 AM CO2 25 02/14/2023 04:41 AM GAP 9 02/14/2023 04:41 AM BUN 19 02/14/2023 04:41 AM CR 1.16 02/14/2023 04:41 AM GLU 99 02/14/2023 04:41 AM Lab Results Component Value Date/Time CA 9.4 02/14/2023 04:41 AM PO4 3.7 02/14/2023 04:41 AM ALBUMIN 3.7 02/14/2023 04:41 AM TOTPROT 6.2 02/14/2023 04:41 AM ALKPHOS 38 02/14/2023 04:41 AM AST 17 02/14/2023 04:41 AM ALT 7 02/14/2023 04:41 AM TOTBILI 1.1 02/14/2023 04:41 AM Radiology Review: Pertinent radiology reviewed and discussed in assessment and plan. Britt Stevens MD Pager [phone] * Anh Castle, HALEY - 02/13/2023 6:09 PM CDT Report received from OSH documented in this encounter H&P Notes * Sattar, Uriel, MD - 02/13/2023 5:24 PM CDT Acute Leukemia Service Admission H&P Braulio López Admission Date: 02/13/2023 Assessment/Plan: Active Problems: * No active hospital problems. * Primary diagnosis: suspected/new diagnosis of Acute Leukemia Cytogenetics/FISH: pending NGS: pending Referring physician: [facility] Chemotherapy plan: pending Admitted for acute evaluation and management. Patient will be evaluated and screened for potential clinical trial Labs on admission to include: CBC with diff, peripheral smear, CMP, LDH, Uric ac id, aPTT, PT/INR, fibrinogen, hepatitis, HIV screen peripheral blood flow cytometry, [id number]. Will perform bone marrow biopsy when appropriate with complete diagnostic testin g including FISH for myeloid/lymphoid Inv 16, 8;21, MLL, 17p ECHO to eval EF given cardiac history TLS/DIC monitoring Heme: Monitor CBC for transfusion needs, goal Hgb>7 and platelets >10K Monitor DIC panel DVT prophylaxis with lovenox unless platelets <50K or signs of DIC Hold LEAD SLOT TECHNICIAN Eliquis 5mg Po BID with upcoming procedures to obtain diagnosis FEN/Renal: LIANNA, Cr LEAD SLOT TECHNICIAN 1.6, 1.4 on admission TLS and uric acid monitoring. Management per institutional algorithm Replace electrolytes per standard protocol unless signs of TLS or LIANNA Allopurinol loading with 300mg po x1 then 100mg/day IVF with risk of TLS: NS at 100ml/hr Immunocompromised diet ID: Monitor for fevers. Will draw blood cultures with first fever and start empiric antibiotics Prophylactic anti-infectives: hold until creatinine clearance/allergy reconcilia tion can be completed CV: Essential hypertension Mixed hyperlipidemia Paroxysmal A fib, on Eliquis 5mg BID Pacemaker Hold LEAD SLOT TECHNICIAN antihypertensives( metoprolol, losartan, tamsulosin, chlorthalidone) wi th hypotension LEAD SLOT TECHNICIAN -Telemetry monitoring -will hold LEAD SLOT TECHNICIAN eliquis for potential procedures LEAD SLOT TECHNICIAN: Losartan 100mg/day Chlorthalidone 25mg /day Metoprolol tartrate 100mg po BID Repatha 420mg/ml sq monthly GI: GERD: LEAD SLOT TECHNICIAN on omeprazole 20mg Formulary change to protonix Monitor for GI distress and prn antiemetics available. Monitor liver function : BPH: With hypotension, will hold LEAD SLOT TECHNICIAN medications on admit LEAD SLOT TECHNICIAN: dutasteride 0.5 mg-tamsulosin ER 0.4 mg capsule ext.release 24hr mphas Oxybutnynin 15mg extended release Pulm: ODETTE: on CPAP at night Endo: Diabetes Mellitus Plan FSBS and LDCF Hold oral hypoglycemics Follow A1c LEAD SLOT TECHNICIAN: Januvia 100mg/day MSK: Low back pain: sacral nerve stimulator in place Psych: Monitor and offer support as needed. Onc/Psych Consult for new malignancy diagnosis Code Status: Full Code Uriel Saravia MD Hematologic Malignancies and Cellular Therapeutics Available by Voalte After hours coverage first call via [employer]ia 8pm to 8am pager [phone] | Voalte "Med Private Night 6" Primary Care Physician: No primary care provider on file. Chief Complaint: Hypotension, labs concerning for acute leukemia History of Present Illness: Braulio López is a 82 y.o. male with past medical h istory as below presents from OSH due to concern for acute leukemia. Patient re ports that yesterday when he woke up he was feeling very dizzy so he checked his blood pressure and it was 85 systolic. Also endorses generalized malaise. He reports weight loss of almost 50 pounds over the past 4 to 5 months and also rep orts decreased appetite. Denies any infectious symptoms like fevers, chills, co ugh, dysuria, bowel movement changes. He reports family history of leukemia in his father and Burkitt lymphoma in his son. Labs at OSH significant for WBC 14.4, hemoglobin 9.2, platelets 66 BMP significant for BUN 17, creatinine 1.66, T. bili 1.5, BNP 204, corrected maría elena cium 9.5 patient received NS 500 cc Chest x-ray was performed which was unremarkable. Kesha was evaluated by james waller pathologist at OSH and it was concerning for acute myelogenous leukemia so jaky benavidez was transferred to for further management. PMH: Hypertension Hyperlipidemia ODETTE on CPAP DM Chronic back pain with sacral stimulator PAF GERD BPH Past surgical hx Sacral stimulator Pacemaker CABG Family History Problem Relation Age of Onset Cancer-Hematologic Father Lymphoma Child Immunizations (includes history and patient reported): There is no immunization history on file for this patient. Allergies: Clonidine, Amiodarone, Ciprofloxacin, Mirabegron, Nebivolol, and Sta rrwr-bwq-wrg reductase inhibitors Medications: Medications Prior to Admission Medication Sig apixaban (ELIQUIS) 5 mg tablet Take one tablet by mouth twice daily. aspirin 81 mg chewable tablet Chew one tablet by mouth daily. chlorthalidone (HYGROTON) 25 mg tablet Take one tablet by mouth daily. CHOLEcalciferoL (vitamin D3) 1,000 units tablet Take one tablet by mouth tati aguilar. cyanocobalamin (vitamin B-12) 1,000 mcg tablet Take one tablet by mouth modesto y. dutasteride-tamsulosin ER (LESLEY) 0.5-0.4 mg capsule Take one capsule by miri th daily. evolocumab (REPATHA PUSHTRONIX) 420 mg/3.5 mL INFUSOR CARTRIDGE Inject 3.5 m L under the skin every 30 days. metoprolol tartrate (LOPRESSOR) 100 mg tablet Take one tablet by mouth twice daily. omeprazole DR (PRILOSEC) 20 mg capsule Take one capsule by mouth daily befor e breakfast. oxybutynin XL (DITROPAN XL) 15 mg tablet Take one tablet by mouth daily. SITagliptin phosphate (JANUVIA) 100 mg tablet Take one tablet by mouth daily . Review of Systems: ROS: A comprehensive 10 point ROS was pertinent for weight loss, decreased appet ite, dizziness, generlized malaise. Physical Exam: Vital Signs: Last Filed In 24 Hours Vital Signs: 24 Hour Range BP: 112/59 (02/14 2216) Temp: 36.5 C (97.7 F) (02/14 2216) Pulse: 70 (02/14 2216) Respirations: 18 PER MINUTE (02/14 2216) SpO2: 99 % (02/14 2216) O2 Device: None (Room air) (02/14 2216) Height: 182.9 cm (6') (02/13 2007) BP: (110-112)/(56-59) Temp: [36.5 C (97.7 F)] Pulse: [70] Respirations: [18 PER MINUTE] SpO2: [95 %-99 %] O2 Device: None (Room air) Vital signs and nursing notes reviewed General: Alert, oriented, no distress. Eyes: conjunctiva clear, pupils equal ENT: mucous membranes moist, no mucositis noted, Dentition/gingiva CV: regular rhythm, no murmur, no lower extremity edema Pulm: CTAB, no wheezing/rales Abd: Soft, Nontender, Nondistended, no abnormal organ enlargement/mass Ext: No joint deformities or swelling, normal range of motion Neuro: Cranial nerves grossly intact, nonfocal Derm: no rashes, petechiae Psych: No anxiety noted Lab/Radiology/Other Diagnostic Tests: CBC w diff Lab Results Component Value Date/Time WBC 16.2 (H) 02/13/2023 08:30 PM RBC 2.50 (L) 02/13/2023 08:30 PM HGB 8.5 (L) 02/13/2023 08:30 PM HCT 25.8 (L) 02/13/2023 08:30 PM MCV 103.1 (H) 02/13/2023 08:30 PM MCH 34.1 (H) 02/13/2023 08:30 PM MCHC 33.1 02/13/2023 08:30 PM RDW 17.0 (H) 02/13/2023 08:30 PM PLTCT 54 (L) 02/13/2023 08:30 PM MPV 10.0 02/13/2023 08:30 PM Lab Results Component Value Date/Time ANC 0.65 (L) 02/13/2023 08:30 PM Comprehensive Metabolic Profile Lab Results Component Value Date/Time NA 134 (L) 02/13/2023 08:30 PM K 3.8 02/13/2023 08:30 PM CL 102 02/13/2023 08:30 PM CO2 21 02/13/2023 08:30 PM GAP 11 02/13/2023 08:30 PM BUN 20 02/13/2023 08:30 PM CR 1.40 (H) 02/13/2023 08:30 PM GLU 95 02/13/2023 08:30 PM Lab Results Component Value Date/Time CA 9.4 02/13/2023 08:30 PM PO4 3.3 02/13/2023 08:30 PM ALBUMIN 3.7 02/13/2023 08:30 PM TOTPROT 6.3 02/13/2023 08:30 PM ALKPHOS 39 02/13/2023 08:30 PM AST 19 02/13/2023 08:30 PM ALT 6 (L) 02/13/2023 08:30 PM TOTBILI 1.5 (H) 02/13/2023 08:30 PM Radiology: Pertinent radiology reviewed and summarized in assessment and plan Uriel Saravia MD Cooperative Education Coordinator documented in this encounter Procedure Notes * Justin Galdamez RN - 02/17/2023 4:20 PM CDT VASCULAR ACCESS TEAM CONSULT NOTE Name: Braulio López : 1940 Age: 82 y.o. Admission Date: 02/13/2023 LOS: 4 days Date of Service: 02/17/2023 Date of Service: 02/17/2023 Referring Physician: Yevgeniy Madrid DO Assessment & Plan: Principal Problem: Acute myeloid leukemia not having achieved remission (HCC) Active Problems: 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 Type 2 diabetes mellitus (HCC) Essential (primary) hypertension Gastro-esophageal reflux disease without esophagitis Hyperlipidemia Longstanding persistent atrial fibrillation (HCC) Moderate malnutrition (HCC) Constipation Braulio López is a 82 y.o. year old male admitted to [facility] on 02/13/2023 Medical History: Diagnosis Date Atrial fibrillation (HCC) Diabetes mellitus (HCC) GERD (gastroesophageal reflux disease) History of prostate cancer Hyperlipidemia Hypertension Longstanding persistent atrial fibrillation (HCC) 02/14/2023 ODETTE (obstructive sleep apnea) Surgical History: Procedure Laterality Date HX CATARACT REMOVAL HX CORONARY ARTERY BYPASS GRAFT Family History Problem Relation Age of Onset Cancer-Hematologic Father Lymphoma Child Scheduled Meds:acyclovir (ZOVIRAX) tablet 800 mg, 800 mg, Oral, BID allopurinoL (ZYLOPRIM) tablet 300 mg, 300 mg, Oral, QDAY [START ON 02/18/2023] azaCITIDine (VIDAZA) injection 162.5 mg, 75 mg/m2 (Treatmen t Plan Recorded), Subcutaneous, ONCE CHOLEcalciferoL (vitamin D3) tablet 1,000 Units, 1,000 Units, Oral, BID cyanocobalamin (vitamin B-12) tablet 1,000 mcg, 1,000 mcg, Oral, QDAY dutasteride (AVODART) capsule 0.5 mg, 0.5 mg, Oral, QDAY w/dinner And tamsulosin (FLOMAX) capsule 0.4 mg, 0.4 mg, Oral, QDAY w/dinner hydroxyurea (HYDREA) capsule 1,000 mg, 1,000 mg, Oral, BID levoFLOXacin (LEVAQUIN) tablet 750 mg, 750 mg, Oral, QDAY metoprolol tartrate tablet 25 mg, 25 mg, Oral, BID [START ON 02/18/2023] ondansetron (ZOFRAN ODT) rapid dissolve tablet 16 mg, 16 mg , Oral, ONCE oxybutynin XL (DITROPAN XL) tablet 15 mg, 15 mg, Oral, QDAY pantoprazole DR (PROTONIX) tablet 40 mg, 40 mg, Oral, QDAY(21) polyethylene glycol 3350 (MIRALAX) packet 17 g, 1 packet, Oral, QDAY posaconazole EC (NOXAFIL) tablet 300 mg, 300 mg, Oral, QDAY w/breakfast sodium chloride PF 0.9% flush 10-20 mL, 10-20 mL, Flush, FLUSH Daily Continuous Infusions: PRN and Respiratory Meds:acetaminophen Q6H PRN, albuterol sulfate PRN, magnesium sulfate 4 g/50 mL PRN, potassium chloride in water PRN (Duplicating Machine Operator from Rx) OR potassium chloride SR PRN (Duplicating Machine Operator from Rx), sodium chloride 0.9 % TKO infusion PRN, sodium chloride irrigation PRN Allergies Allergen Reactions Ciprofloxacin HALLUCINATIONS States he has tolerated levaquin before Clonidine HALLUCINATIONS Amiodarone FEVER Pt not interested in trying this med again Thicmqc-Mjo-Eqc Reductase Inhibitors MUSCLE PAIN Mirabegron UNKNOWN Nsaids (Non-Steroidal Anti-Inflammatory Drug) STOMACH UPSET GI toxicity per pt Consultation Notes: PICC Line Insertion Procedure Note NAME:Braulio López :1940 AGE: 82 y.o. ADMISSION DATE: 02/13/2023 DAYS ADMITTED: LOS: 4 days Procedure Details: Informed consent was obtained or reviewed for the procedure. Risks of infection, blood clot, nerve or vessel damage, and possibility of unsu ccessful placement at bedside were discussed. Indications: Central line required medications Indication for exchange: N/A Assessment: Prior to the procedure the patient was assessed and the Right Brachial was ident ified as the target vessel for insertion, which measured 5.8 mm. Therefore, the catheter is estimated to occupy 22% of the target vessel. Mid upper arm circumfe rence is 33 cm. Timeout: Correct patient : Yes. Correct procedure: Yes. Correct side: N/A. Procedure: The successful procedure of a PICC line insertion, was performed by Barbara Galdamez RN, who was assisted by Anh Mclaughlin RN. Sterile preparation and technique was completed. Under sterile conditions the skin at the insertion site was prepped with chlorhexadine and covered with a sterile drape. Local anesthes ia was applied to the skin and subcutaneous tissues. A 4 FR, Double, PICC was i nserted in the Right Brachial vein per hospital protocol. Blood return: Yes. Cat heter trimmed, inserted to 41 cm, with 0 cm external. Catheter was flushed with 20 mL NS. Difficulty encountered during procedure: No. Patient did tolerate proc edure well. Number of Attempts: 1 Lot Number: [id number] Verification:Placement will be verified by CXR., Patency verified by positive bl ood return., Placement has been confirmed by CXR. and Educational material/teach ing instruction given to patient and/or left at bedside. CXR confirmation from Dr. Hernadez as placement in the CAJ. Hematology: Lab Results Component Value Date HGB 7.9 02/17/2023 WBC 18.2 02/17/2023 ANC 0.36 02/17/2023 LYMPH 20 02/17/2023 RBC 2.20 02/17/2023 MCV 104.4 02/17/2023 MCH 36.0 02/17/2023 MCHC 34.5 02/17/2023 MPV 9.9 02/17/2023 RDW 18.7 02/17/2023 Coagulation: Lab Results Component Value Date PT 18.7 02/17/2023 INR 1.7 02/17/2023 General Chemistry: Lab Results Component Value Date NA 136 02/17/2023 K 4.0 02/17/2023 CL 105 02/17/2023 CO2 22 02/17/2023 GAP 9 02/17/2023 BUN 14 02/17/2023 CR 1.16 02/17/2023 GLU 111 02/17/2023 CA 9.0 02/17/2023 ALBUMIN 3.6 02/17/2023 MG 2.1 02/17/2023 TOTBILI 1.0 02/17/2023 TOTPROT 5.8 02/17/2023 PO4 3.4 02/17/2023 Blood Culture: Resulted Micro Last 72 Hrs No results found Justin Galdamez RN * Morena Wilkerson APRN-NP - 02/14/2023 4:13 PM CDT Bone Marrow Procedure Note Performing Provider: KINGA Grewal Collaborating Provider: Dr. Stevens Diagnosis: AML Indications: Diagnostic Procedure Details: Consent was obtained from patient, signed copy placed in chart. Risks of the pro cedure were explained including infection, pain, nerve damage and bleeding. Pt w as then pre-medicated with 0.5 mg oral ativan and 50 mcg IV Fentanyl. Time out performed: Consent obtained, correct patient verified, correct procedur e verified, correct site verified. The patient was positioned in the prone position. The left iliac crest was prep ped and draped in sterile fashion with chlorhexadine and sterile drapes. 6 ml of 1% Lidocaine was used to anesthetize the skin and bone cortex. An aspirate need le was then inserted into the marrow and fluid obtained. The needle was removed and pressure applied. Next the bone marrow biopsy needle was inserted, a core b iopsy was obtained and the needle removed. Pressure was held until hemostasis. C hlorhexidine cleaned from skin and bandaide applied. Samples were sent for bone marrow biopsy and aspirate, flow cytometry, iron stai n and cytogenetics. Complications: None. Patient tolerated procedure well. KINGA Trevino T documented in this encounter Consult Notes * Jacquie Wolf RN - 02/28/2023 2:30 PM CDTAssociated Order(s): CONSULT WOUND/OSTOMY TEAM NURSE Images from the original note were not included. Wound consult ordered by bedside RN for skin breakdown on buttocks/sacrum. Pt wa s seen by our service 02/14. Photo included below. Right buttock with pale white skin with macerated appearance. Photo received from primary RN today, 02/28, with dry, flaking skin patch located at same site. Bilateral buttocks with blanchable pink/lavender skin; color changes such as these can often be seen in situations of chronic moisture exposure. Primary RN advised to apply Vitamin A&D ointment as ordered by our service. Abdominal pad to be placed over site prior to using luzmaria sling to help protect site from friction/shear while still keeping ointment on surface. 02/14: 02/28: Jacquie Wolf RN, BSN, CWON Wound/Ostomy Nursing Consult Service Available via Voalte text when in house For questions after 4:00pm M-F/weekends/holidays, voalte First Contact * Anjelica Valentine RD - 02/20/2023 2:21 PM CDTAssociated Order(s): CONSULT DIETITIAN CLINICAL NUTRITION Clinical Nutrition Follow-Up Assessment Name: Braulio López : 1940 Age: 82 y.o. Admission Date: 02/13/2023 LOS: 7 days Date of Service: 02/20/2023 Recommendation: Continue immunosuppressed diet. Please remind/encourage pt to make PO attempt s TID. Avoid skipped meals. Pt's intake goal as follows: Order a breakfast meal each morning with protein sources; Request an on-unit high protein shake at lunchtime; At dinner either o rder a meal from room service, or request an on-unit high protein shake. Additio nal snacks as tolerated. If not medically contraindicated, consider addition of an appetite stimulant (Remeron or Marinol per MD discretion). If pt is unable to increase PO intakes, consider initiation of EN support. Comments: 82 y.o. male with PMH HTN, HLD, ODETTE, DM, PAF, and GERD, admitted with new dx AML . Started on Azacitidine, currently C1D4. Clinical nutrition following through a dmit with pt at-risk and meeting malnutrition criteria. Dietitian now consulted for further assessment/education to optimize oral nutrition. Pt continues to end orse poor appetite, 1 meal/day ordered over the weekend. Pt states he simply has no feeling of hunger. States he is enjoying high protein shakes made on-unit, a nd drank one for breakfast today 02/20. He denies nausea/vomiting. Endorses mild constipation, last BM 02/17. Miralax on board and lactulose added. He denies this as a barrier to intake. Pt has been educated on increased nutrition needs for c linical course and importance of protein. RD reiterated needs and importance of optimizing intakes to support nutrition status. Emphasized goal of consistent in takes throughout the day, avoiding skipped meals. Thorough discussion with pt fo r nutrition related goal setting. Pt voices understanding that while his usual i ntakes LEAD SLOT TECHNICIAN were 2 meals/day, it is recommended to aim for more frequent PO attem pts now. Pt participated in developing a nutrition plan with goals as follow: Or domingo a breakfast meal each morning with protein sources; Request an on-unit high protein shake at lunchtime; At dinner either order a meal from room service, or request an on-unit high protein shake. Additional snacks as tolerated. Pt notes again that he dislikes most meats (except for hines). RD assisted in reviewing dietary sources of protein and identifying options that pt likes (eggs, cottage cheese, yogurt, peanut butter, etc). Provided protein shake for lunch and commun icated plan with nursing. Will continue to follow. Nutrition Assessment of Patient: Admit Weight: 95.5 kg (source unknown; first standing 95.3kg); Weight Change Sin ce Admit: +3.9kg (+2.7L net I/O since admit) BMI (Calculated): 28.48; BMI Categories Adult: Over Weight: 25-29.9 Pertinent Allergies/Intolerances: none Pertinent Labs: Na 134, BUN 29, Cr 1.58, Glu 145, tBili 1.4; Pertinent Meds: tati ly vitamin D2, vitamin B12, protonix, vitamin K, miralax; Unintentional Weight L oss: 10% in 6 months (significant) (per outside records) Oral Diet Order: Immunosuppressed; Current Oral Intake: Inadequate Estimated Calorie Needs: 5916-5716 (30-32 kcal/kg DBW) Estimated Protein Needs: 100-125 (1.2-1.5 gm/kg DBW) Malnutrition Assessment: Malnutrition present on admission ICD-10 code E44: Chronic illness/Moderate non-severe malnutrition Energy intake: Less than 75% of estimated energy requirement for 1 month or more, Weight loss: 10% x 6 months Malnutrition Interventions: Assisted in nutrition intake goal setting;PO attempt s TID with ONS 1-2x/day Nutrition Focused Physical Assessment: Loss of Subcutaneous Fat: (pending per pt request); ; Muscle Wasting: (pending per pt request); ; Edema: Yes; Severity: Moderate; Location: Lower extremities Pressure Injury: stage 1 coccyx;sacrum Comment: +BM 02/17 Nutrition Diagnosis: Inadequate protein-energy intake Etiology: poor appetite Signs & Symptoms: pt reported intakes in setting of new AML Intervention / Plan: Education/goal setting; will continue to assist and adjust plan prn Monitor intake/adequacy, wt trends, labs, meds, GI status, I/Os Provide immunosuppressed diet as appropriate on follow up; physical exam as able Goals: Patient to consume >50% of meals/supplements Time Frame: Within 72 hours Status: Not met;Ongoing Verbalize understanding of diet (high protein, immunosuppressed) Time Frame: Prior to discharge Status: Partially met;Ongoing Anjelica Valentine MS, RDN, LD Clinical Dietitian - Department of Clinical Nutrition Available on Voalte * Ana Kathleen MD - 02/15/2023 12:37 PM CDTAssociated Order(s): CONSULT CARDIOLOGY PHYSICIAN CARDIOLOGY H&P NOTE Admission Date: 02/13/2023 Code Status: Full Code Reason for Consult: chest pain with ambulation today, hx of cardiac issues. Appreciate recs History of Present Illness: Braulio López is a 82 y.o. male with past medical history persistent atrial fibrillation, coronary artery disease s/p CABG x3 in 2 008, diabetes type 2, hypertension, GERD, HLD, lumbar stenosis s/p lumbar ml ctomy. He was a transfer from [facility] in [place], [place] due to concern f or acute leukemia. He reports that he woke up 02/12 he felt dizzy, systolic blood pressure reading 85. He also endorsed 50 pound weight loss over past 4-5 months, decreased appetite. Denies any infectious symptoms like fevers, chills, cough, dysuria, bowel movement changes. He reports family history of leukemia in his f ather and Burkitt lymphoma in his son. Cardiology consulted today due to chest pain on exertion today. His Eliquis for atrial fibrillation has been held due to his current evaluation of suspected brent kemia requiring biopsy. He has been diagnosed with acute myeloid leukemia. LEAD SLOT TECHNICIAN antihypertensives held due to hypotension. He has a [employer] pacemaker for stevenson ycardia. His ECG showed atrial fibrillation with occasional v-paced complexes, r ight bundle branch block and left anterior fascicular block. He tells me that si nce his bypass grafting, he has always had chest discomfort on exertion relieved by rest, rates it 4/10 at the worst located in the epigastric region. The pain does not radiate, not associated with shortness of breath, diaphoresis, or dizzi ness. He has regularly followed with his primary wallpaper cleaner in [place] he wh o likes very much, Dr. Culver. He thinks his last stress test was 3 years ago, a nd he has not been on any vasodilating agents such as Imdur or Ranexa in the pas t. Past Medical History: Medical History: Diagnosis Date Atrial fibrillation (HCC) Diabetes mellitus (HCC) GERD (gastroesophageal reflux disease) History of prostate cancer Hyperlipidemia Hypertension Longstanding persistent atrial fibrillation (HCC) 02/14/2023 ODETTE (obstructive sleep apnea) Social History: Social History Socioeconomic History Marital status: Tobacco Use Smoking status: Former Types: Cigarettes Smokeless tobacco: Never Family History was reviewed by me: Family History Problem Relation Age of Onset Cancer-Hematologic Father Lymphoma Child Home Medications: Medications Prior to Admission Medication Sig apixaban (ELIQUIS) 5 mg tablet Take one tablet by mouth twice daily. aspirin 81 mg chewable tablet Chew one tablet by mouth daily. chlorthalidone (HYGROTON) 25 mg tablet Take one-half tablet by mouth daily. CHOLEcalciferoL (vitamin D3) 1,000 units tablet Take one tablet by mouth twi ce daily. cyanocobalamin (vitamin B-12) 1,000 mcg tablet Take one tablet by mouth [place] y. dutasteride-tamsulosin ER (LESLEY) 0.5-0.4 mg capsule Take one capsule by miri daily with dinner. evolocumab (REPATHA PUSHTRONIX) 420 mg/3.5 mL INFUSOR CARTRIDGE Inject 3.5 m L under the skin every 30 days. Last received week of 02/06/2023 losartan (COZAAR) 100 mg tablet Take one tablet by mouth daily. metoprolol tartrate (LOPRESSOR) 100 mg tablet Take one tablet by mouth twice daily. omeprazole DR (PRILOSEC) 20 mg capsule Take one capsule by mouth daily befor e breakfast. oxybutynin XL (DITROPAN XL) 15 mg tablet Take one tablet by mouth daily. SITagliptin phosphate (JANUVIA) 100 mg tablet Take one tablet by mouth daily . vitamins, multiple cap Take one capsule by mouth daily. Current Medications: acyclovir (ZOVIRAX) tablet 800 mg, 800 mg, Oral, BID allopurinoL (ZYLOPRIM) tablet 300 mg, 300 mg, Oral, QDAY CHOLEcalciferoL (vitamin D3) tablet 1,000 Units, 1,000 Units, Oral, BID cyanocobalamin (vitamin B-12) tablet 1,000 mcg, 1,000 mcg, Oral, QDAY dutasteride (AVODART) capsule 0.5 mg, 0.5 mg, Oral, QDAY w/dinner And tamsulosin (FLOMAX) capsule 0.4 mg, 0.4 mg, Oral, QDAY w/dinner insulin aspart (U-100) (NOVOLOG FLEXPEN U-100 INSULIN) injection PEN 0-6 Units, 0-6 Units, Subcutaneous, ACHS (22) levoFLOXacin (LEVAQUIN) tablet 750 mg, 750 mg, Oral, QDAY metoprolol tartrate tablet 25 mg, 25 mg, Oral, BID oxybutynin XL (DITROPAN XL) tablet 15 mg, 15 mg, Oral, QDAY pantoprazole DR (PROTONIX) tablet 40 mg, 40 mg, Oral, QDAY(21) posaconazole EC (NOXAFIL) tablet 300 mg, 300 mg, Oral, QDAY w/breakfast acetaminophen Q6H PRN, dextrose 50% (D50) IV PRN, sodium chloride 0.9 % TKO infu cele PRN, sodium chloride irrigation PRN Allergies: Allergies Allergen Reactions Ciprofloxacin HALLUCINATIONS States he has tolerated levaquin before Clonidine HALLUCINATIONS Amiodarone FEVER Pt not interested in trying this med again Ensfhfd-Moo-Zwd Reductase Inhibitors MUSCLE PAIN Mirabegron UNKNOWN Nsaids (Non-Steroidal Anti-Inflammatory Drug) STOMACH UPSET GI toxicity per pt Review of Systems: Constitutional: denies fever, chills, night sweats, weight loss Eyes: denies double vision, sudden vision loss ENT & mouth: no ringing in the ears, mucosas are moist Cardiovascular: denies chest pain, palpitations Respiratory:denies cough, shortness of breath GI: denies nausea, vomiting, diarrhea, constipation : denies increased urinary frequency, dysuria Musculoskeletal: denies joint pain, weakness Skin: denies new skin rash or skin lesions Neurological: denies dizziness, denies loss of consciousness Psychiatric: denies depression, suicidal ideation Endocrine: denies heat or cold intolerance Hematology/lymphatic: denies abnormal bleeding, bruising, new lymph nodes Vital Signs: Most Recent Vital Signs: 24 Ho ur Range BP: 110/58 (02/15 1211) Temp: 36.6 C (97.9 F) (02/15 1211) Pulse: 65 (02/15 1211) Respirations: 18 PER MINUTE (02/15 1211) SpO2: 100 % (02/15 1211) O2 Device: None (Room air) (02/15 1211) Height: 182.9 cm (6') (02/15 09) BP: (106-156)/(49-67) Temp: [36.4 C (97.6 F)-36.9 C (98.5 F)] Pulse: [59-91] Respirations: [16 PER MINUTE-18 PER MINUTE] SpO2: [96 %-100 %] O2 Device: None (Room air) Vitals: 02/14/23 0829 02/15/23 0822 02/15/23 0925 Weight: 95.3 kg (210 lb) 95.3 kg (210 lb) 95.3 kg (210 lb) Intake/Output Summary (Last 24 hours) at 02/15/2023 1237 Last data filed at 02/15/2023 1213 Gross per 24 hour Intake 2067.17 ml Output 1300 ml Net 767.17 ml Stool Occurrence: 1 Physical Exam: BP 110/58 (BP Source: Arm, Right Upper) | Pulse 65 | Temp 36.6 C (97.9 F) | Ht 182.9 cm (6') | Wt 95.3 kg (210 lb) | SpO2 100% | BMI 28.48 kg/m GENERAL APPEARANCE: Patient appears chronically ill. PSYCH: Appropriate NEURO: Alert and conversant VESSELS: JVD is not elevated above the sternal notch. ENT: Moist mucous membranes CARDIOVASCULAR: No parasternal lift Irregularly irregular rhythm and normal ra te. S1 and S2 present. systolic murmur. There is no pericardial rub GI: Abdomen nondistended No appreciable hepatomegaly in the upright position RESPIRATORY: Clear breath sounds bilaterally EXTREMITIES: There was no lower extremity edema SKIN: no bruising or lesions noted; pallor noted. GAIT: did not witness patient ambulate Labs: Results for orders placed or performed during the hospital encounter of 02/13/23 (from the past 24 hour(s)) BONE MARROW ASP Collection Time: 02/14/23 3:11 PM Result Value Ref Range Bone Marrow Asp SEE PATHOLOGY REPORT BONE MARROW BIOPSY Collection Time: 02/14/23 3:11 PM Result Value Ref Range Bone Marrow Bx SEE PATHOLOGY REPORT FE STAIN Collection Time: 02/14/23 3:11 PM Result Value Ref Range Bone Marrow FE SEE PATHOLOGY REPORT POC GLUCOSE Collection Time: 02/14/23 5:37 PM Result Value Ref Range Glucose, POC 111 (H) 70 - 100 MG/DL POC GLUCOSE Collection Time: 02/14/23 9:13 PM Result Value Ref Range Glucose, POC 129 (H) 70 - 100 MG/DL CBC AND DIFF CELLULAR THERAPEUTICS Collection Time: 02/15/23 4:47 AM Result Value Ref Range White Blood Cells 14.6 (H) 4.5 - 11.0 K/UL RBC 2.20 (L) 4.4 - 5.5 M/UL Hemoglobin 7.6 (L) 13.5 - 16.5 GM/DL Hematocrit 22.6 (L) 40 - 50 % MCV 103.0 (H) 80 - 100 FL MCH 34.7 (H) 26 - 34 PG MCHC 33.7 32.0 - 36.0 G/DL RDW 17.9 (H) 11 - 15 % Platelet Count 46 (L) 150 - 400 K/UL MPV 9.5 7 - 11 FL Segmented Neutrophils 5 (L) 41 - 77 % Lymphocytes 22 (L) 24 - 44 % Monocytes 13 (H) 4 - 12 % Blast 60 % ANISO PRESENT POLY PRESENT MACRO PRESENT Platelet Estimate MKD DEC Absolute Neutrophil Count Manual 0.73 (L) 1.8 - 7.0 K/UL PROTIME INR (PT) Collection Time: 02/15/23 4:47 AM Result Value Ref Range Protime 20.5 (H) 9.5 - 14.2 SEC INR 1.9 (H) 0.8 - 1.2 PTT (APTT) Collection Time: 02/15/23 4:47 AM Result Value Ref Range APTT 35.3 24.0 - 36.5 SEC COMPREHENSIVE METABOLIC PANEL CELLULAR THERAPEUTICS Collection Time: 02/15/23 4:47 AM Result Value Ref Range Sodium 138 137 - 147 MMOL/L Potassium 3.5 3.5 - 5.1 MMOL/L Chloride 107 98 - 110 MMOL/L Glucose 94 70 - 100 MG/DL Blood Urea Nitrogen 16 7 - 25 MG/DL Creatinine 0.92 0.4 - 1.24 MG/DL Calcium 9.0 8.5 - 10.6 MG/DL Total Protein 5.5 (L) 6.0 - 8.0 G/DL Total Bilirubin 1.0 0.3 - 1.2 MG/DL Albumin 3.3 (L) 3.5 - 5.0 G/DL Alk Phosphatase 33 25 - 110 U/L AST (SGOT) 17 7 - 40 U/L CO2 22 21 - 30 MMOL/L ALT (SGPT) 6 (L) 7 - 56 U/L Anion Gap 9 3 - 12 eGFR >60 >60 mL/min MAGNESIUM CELLULAR THERAPEUTICS Collection Time: 02/15/23 4:47 AM Result Value Ref Range Magnesium 1.7 1.6 - 2.6 mg/dL PHOSPHORUS CELLULAR THERAPEUTICS Collection Time: 02/15/23 4:47 AM Result Value Ref Range Phosphorus 3.2 2.0 - 4.5 MG/DL FIBRINOGEN Collection Time: 02/15/23 4:47 AM Result Value Ref Range Fibrinogen 241 200 - 400 MG/DL URIC ACID Collection Time: 02/15/23 4:47 AM Result Value Ref Range Uric Acid 4.5 4.0 - 8.0 MG/DL POC GLUCOSE Collection Time: 02/15/23 8:20 AM Result Value Ref Range Glucose, POC 103 (H) 70 - 100 MG/DL Cardiovascular/imaging studies were reviewed with Dr. Kathleen: 1. EC02/15/23; atrial fibrillation with occasional v-paced complexes 2. Echo 02/15/23: EF 62%, no segmental wall motion abnormalities, moderate to sev ere TR, mild MR, mild pulmonic regurgitation 3. Chest [id number] silhouette enlargement, no consolidation Assessment & Plan Braulio López is a 82 y.o. 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 Pérez in [place] Recent chest pain on exertion today -chest pain during exertion, EKG showing atrial fibrillation with RBBB, occasion al v-paced complexes -echo from today did not demonstrate any regional wall motion abnormalities -this chest pain is not new, he has had this since his CABG in 2007 -follows regularly with wallpaper cleaner Dr. 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 He h ad chest pain on exertion which has been going on for many years, remained uncha nged since 2007. ECG without ischemic changes, echo without any wall motion abno rmalities. Suspect his underlying anemia is also contributing to his chest pain. Given his history, will repeat stress test. On physical exam, carotid bruit also present. Please see attestation by Dr. Kathleen for final plan. Plan: 1. Requested records from his last stress test, will repeat (ordered). 2. Recommend carotid artery ultrasound (ordered). 3. Resume Eliquis when able from a hematology standpoint. 4. Continue on Metoprolol tartrate 25mg BID; agree with reduced dose due to hypo tension. 5. Please keep K above/= 4.0 and Mag above/= 2.0 6. Follow-up with primary wallpaper cleaner Dr. Culver in [place], [place] following discharge. Cheryl Ballard, DNP, SITE SPECIALIST, PROPERTY AND CASUALTY INSURANCE AGENT-C Cardiology Consult Service Available on Voalte and [facility] ATTESTATION I personally interviewed and examined the patient. I have reviewed the history, physical, impression and plan outlined by the Nurse Practitioner. The patient presents with: Chest pain on exertion, known history of CAD, status post CABG, permanent atrial fibrillation (has been on anticoagulation with apixa ban), status post PPM implant, new diagnosis of AML On examination: patient is comfortable, NAD, bilateral carotid bruits, clear yumiko gs, normal heart sounds, no S3, no heart murmur, irregular irregular heart rhyth m, no MARIA ISABEL. My impression is: Acute on chronic chest pain, symptoms compatible with atypical angina (patient has not taken sublingual nitroglycerin in a very long time), CA D, status post CABG, permanent atrial fibrillation, anticoagulated with apixaban , on rate control with beta-mac, status post PPM implant due to symptomatic bradycardia, ODETTE, new diagnosis of AML. My plan is: Continue all current cardiac medications including the apixaban, con tinue to monitor the CBC, discontinue apixaban when risk of bleeding increased f rom a hematology-oncology standpoint and once patient will develop significant t hrombocytopenia, correct all underlying causes of tachycardia, further evaluatio n with a 2D echo Doppler study and regadenoson thallium, monitor and correct loraine ctrolytes, check carotid duplex in the light of bilateral carotid bruit. Staff name: Ana Kathleen MD Date: 02/15/2023 * Debbie Adams - 02/14/2023 1:30 PM CDTAssociated Order(s): CON[facility]ULT [facility] Inpatient Onco-Psychology Consult Note Date of Service: 02/14/23 Time of Service: [id number] Location of Service: [id number] Reason for Consult: medical team for new AML diagnosis HPI: Patient is a 82 y.o. male diagnosed with AML on 02/13/23. Patient was admitt ed for acute AML evaluation and management Summary: Patient was seen bedside and accompanied by for consult. Introduce d onco-psychology's role and the routine procedure of visiting newly diagnosed p atients. He appeared uninterested in discussion or learning more about services. When asked how the last 24hrs has been, patient stated "how do you expect?" Cami causey's was more open and discussed the shock and the events that led up to that moment. She shared that she is "holding it together as best as possible" an d noted that they have a strong lorrie. They described the overwhelm they felt an d have been largely unable to process/retain the information provided by the [facility] iad of providers. Discussed their social support and home life. He was initially irritable but seemed to warm up a little towards end of consult. Patient and elena stevensw agreed it'd be best to return in a few days once things have "settled down" , in order reassess his mental/emotional state. Psychosocial Hx: Patient and live in [place], [place], where most of their fam pat and friends reside. 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 Mental Status: Patient oriented X4. Presented with good eye contact and seun ative relational pattern. Attention, speech, motor, thought processes, and thou ght content all within the normal range. Mood was irritable with affect consist ent with mood and session content. No suicidal or homicidal ideation endorsed. Insight and judgment good with intact impulse control. See above for symptoms Intervention: Assessed mood and anxiety, provided information about onco-psychol ogy service and supportive therapy to patient. Diagnostic Impression (Based on DSM-5): Deferred Medical Diagnosis: AML Plan of Care: Onco-psychology will return for follow up in a few days. Patient i s aware of onco-psychology services and will contact if outpatient support is ne catrina Adams, PhD Post-doctoral fellow Onco-Psychology Program Find me on Voalte Note: Services and documentation were provided under the supervision of a licens ed psychologist. Associated attestation - Brigida Kwok PSYD - 02/15/2023 11:13 AM CDT I reviewed the case with the post-doctoral fellow, and agree with the conclusion s and treatment plan. Brigida Kwok PsyD Licensed Psychologist Onco[facility]Psychology Program Find me on Voalte * Gabriella Gross, RN - 02/14/2023 11:35 AM CDTAssociated Order(s): CONSULT WOUND/OSTOMY TEAM NURSE Images from the original note were not included. Wound Ostomy Note NAME:Braulio López :1940 AGE: 82 y.o. ADMISSION DATE: 02/13/2023 DAYS ADMITTED: LOS: 1 day Reason for Consult/Visit: pressure injury Stage II or greater Assessment/Plan: Principal Problem: Acute leukemia (HCC) "consult for unstageable on buttock" Wounds 02/13/232107 Pressure injury Coccyx;Sacrum (Active) 02/13/232107 Coccyx;Sacrum Wound Type: Pressure injury Pressure Injury Stages (For Pressure Injury Wound Type Only): Unstageable Pressure Injury Present On Inpatient Admission: Y If this pressure injury is suspected to be device related, please select the dev ice:: Wound/Pressure Injury Orientation: Wound Location Comments: ZXWound Location: Wound Description (Comments): Wound Type:: Image 02/14/23 113 Wound Dressing Status None;Open to air 02/14/23 113 Wound Dressing and / or Treatment A & D Ointment 02/14/23 113 Wound Drainage Amount None 02/14/23 113 Wound Base Assessment [place];Intact 02/14/23 113 Surrounding Skin Assessment Intact 02/14/23 113 Wound Site Closure None 02/14/23 113 Wound Status (Wound Team Only) Closed 02/14/23 1135 Wound Length (cm) (Wound Team Only) 0 cm 02/14/23 1135 Wound Width (cm) (Wound Team Only) 0 cm 02/14/23 1135 Wound Depth (cm) (Wound Team Only) 0 cm 02/14/23 1135 Wound Surface Area (cm^2) (Wound Team Only) 0 cm^2 02/14/23 113 Wound Volume (cm^3) (Wound Team Only) 0 cm^3 02/14/23 113 Number of days: 1 Wounds 02/13/23 2349 Abrasion Anterior;Left Toe, First (big) (Active) 02/13/23 2349 Toe, First (big) Wound Type: Abrasion Pressure Injury Stages (For Pressure Injury Wound Type Only): Pressure Injury Present On Inpatient Admission: Y If this pressure injury is suspected to be device related, please select the dev ice:: Wound/Pressure Injury Orientation: Anterior;Left Wound Location Comments: ZXWound Location: Wound Description (Comments): Wound Type:: Image 02/14/23 113 Wound Dressing Status None 02/14/23 113 Wound Drainage Amount None 02/14/23 1135 Wound Base Assessment Intact 02/14/23 113 Surrounding Skin Assessment Dry;Intact 02/13/23 210 Wound Site Closure None 02/14/23 113 Wound Status (Wound Team Only) Closed 02/14/23 1135 Wound Length (cm) (Wound Team Only) 0 cm 02/14/23 1135 Wound Width (cm) (Wound Team Only) 0 cm 02/14/23 113 Wound Depth (cm) (Wound Team Only) 0 cm 02/14/23 113 Wound Surface Area (cm^2) (Wound Team Only) 0 cm^2 02/14/23 1135 Wound Volume (cm^3) (Wound Team Only) 0 cm^3 02/14/23 1135 Number of days: 1 transfer from [facility] for low BP and weight loss. Per pt lyme disease x2 in the past. >RISK FACTORS: Assessment: area on buttocks pink and blanchable. Just some dry flaky skin. Area on left great toe from account receivable associate. Small blood blister. Plan of Care: orders placed per skin integrity protocol A and D to buttocks Recommendations: orders to be placed by primary team Next steps: We will sign off at this time. Tyra Gross RN, BSN Wound/Ostomy Team Consult Service For questions after 4:00pm M-F/weekends/holidays, voalte First Contact. . documented in this encounter Nursing Notes * Male, Britt Suazo MD - 02/13/2023 5:20 PM CDT Care coordination note for suspected acute leukemia patient Any information contained in this note may contain information communicated verb ally over phone from referring physician or transfer center and requires verific ation upon patient arrival and review of records. I was notified at or about 02/13/2023 5:21 PM of Braulio López a 82 y.o. male wh o presented to referring physician with suspected acute leukemia. Referring physician/location: [facility] The patient had the following concerning physical exam and vital sign findings: Hypotension, weakness at home. + weight loss over last year BP 91/54, responded to IVF bolus 115/51 EKG-v paced (has pacemaker, h/o afib on eliquis) Wbc 14.4 with blasts, atypical lymphocytes Creatinine 1.66 At the outside hospital/clinic the patient had the following pertinent lab value s available at the time of referral: I recommend the following be done upon patient arrival to the [facility]: Notify 12h LUIS EDUARDO if arrives before 19:[address] commercial drafter if arrives after 2 0:00 After hours coverage first call via Cooperative Education Coordinator 8pm to 8am: pager [phone] Labs on admission: CBC with diff, CMP, magnesium, phosphorus, uric acid, fibr inogen, aPTT, INR, peripheral smear, peripheral blood flow cytometry, peripheral blood TP53 PCR Transfusion parameters: Transfuse irradiated products PRBC to keep hgb > 7, plt > 10k Tumor Lysis Management Guidelines Suggested use for spontaneous tumor lysis, chemotherapy induced tumor lysis as w ell as after first dose (including ramp up dosing) with initiation of high risk medications such as venetoclax Hydration: Normal Saline at 100ml/hr started 24-48h prior to induction chemother apy to maintain a urine output of at least 80-100ml/m2/hr. Loop diuretics should be added for patients with low urine output once euvolemia is achieved Hyperuricemia: Allopurinol 300mg po x 1 then 100 mg daily until cytoreduced (dose adjusted for Cr Cl) Uric acid between 8 and 12: Rasburicase orderset, dosing 3mg recommended, fo llow up lab per orderset panel Uric acid >/= 12: Rasburicase orderset, dosing 6mg recommended, follow up lab per orderset panel Hyperphosphatemia: >/= 6.5: initiate phosphate binder (calcium acetate or sevelamer), in severe cases consider dialysis Hypocalcemia: </= 7, correct for albumin or utilize ionized calcium asymptomatic: no treatment Symptomatic: calcium gluconate 1gm (slow IV infusion) with ECG monitoring POTASSIUM Management Recommendations Follow up recommendations Additional option Potassium >/= 0.5 increase from prior value Recheck the following in 1 hr STAT (BMP + uric acid + phos) Potassium Phosphorus Uric acid Calcium Creatinine If further >/= 0.2 increase in potassium but still upper limit of normal (ULN), manage as K > /= ULN Resume per protocol testing if change in potassium < 0.2 and potassium < ULN Utilize iSTAT machine for point of care (POC) potassium measurements every 2-4h on tele status and q1h on ICU status when needed Potassium > Upper limit of normal check iSTAT POC potassium prior to treatment to rule out pseudohyperkalemia Perform the following: EKG Place on telemetry Nephrology consult Administer sodium zirconium cyclosilicate (Lokelma) 10g Administer Furosemide 20mg IV x 1 Administer calcium gluconate 100-200mg/kg IV slowly if there is EKG/Tele cody dence of life-threatening arrhythmias Recheck the following in 1 hr STAT Potassium Phosphorus Uric acid Calcium Creatinine If Potassium < ULN 1 hr later, repeat the following at 1, 2 and 4 hrs: Potassium Phosphorus Uric acid Calcium Creatinine Utilize iSTAT machine for point of care (POC) potassium measu rements every 2-4h on tele status and q1h on ICU status when needed Consider increasing furosemide dosing and/or scheduling dosing Consider placing rojas catheter Consider scheduling lokelma Potassium >/= 6 and/or symptomatic (muscle cramps, weakness, parasthesias, nausea, vomiting, diarrhea) check iSTAT POC potassium prior to treatment to rule out pseudohyperkalemia Perform the following: EKG Place on telemetry Nephrology consult Administer sodium zirconium cyclosilicate (Lokelma) 10g Administer Furosemide 20mg IV x 1 Administer insulin 0.1 Unit/kg + D25 2ml/kg IV Administer sodium bicarbonate 1-2mEq/kg IV push Administer calcium gluconate 100-200mg/kg IV slowly if there is EKG/Tele cody dence of life-threatening arrhythmias Recheck the following every hour until nor malization STAT Potassium Phosphorus Uric acid Calcium Creatinine Utilize iSTAT machine for point of care (POC) potassium measu rements every 2-4h on tele status and q1h on ICU status when needed Consider ICU Consider HD catheter placement for emergent dialysis needs Consider increasing furosemide dosing and/or scheduling dosing Consider placing rojas catheter Consider scheduling lokelma Britt Stevens MD Pager [phone] documented in this encounter Miscellaneous Notes * Care Plan - Sylvain Valentinet, RD - 02/28/2023 11:36 AM CDT Problem: Nutrition Deficit Goal: Adequate nutritional intake Outcome: Goal Ongoing Flowsheets (Taken 02/17/2023 1519) Adequate nutritional intake: Promote oral fluid intake Recommendation: Continue immunosuppressed diet. Please remind/encourage pt to make PO attempts T ID. Please provide on-unit protein shakes TID (made with Boost Plus + 2x Beneprotein powder + ice cream). Additional meal orders encouraged. Avoid skipped meals. If not medically contraindicated, recommend trailing an appetite stimulant (Desiree angeli or Marinol per MD discretion) to support consistent appetite. 82 y.o. male with PMH HTN, HLD, ODETTE, DM, PAF, and GERD, admitted with new dx AML . Started on Azacitidine, currently C1D12. Clinical nutrition following through admit with pt at-risk and meeting malnutrition criteria. Pt had been working tow karmen goal of protein shakes TID and ordering meals from room service. At 02/28 RD v isit pt reports doing well with this goal. Checklist on whiteboard reflects 3x s hakes + 1 meal consumed on 02/27. Today 02/28 pt has consumed 1 protein shake and [address] delivered protein shake for lunch following visit. Pt states he feels good with current goal of protein shakes TID and additional simon ls as able. Reports feeling unsure if his appetite has increased, but he appreci ates the routine of consistent meals. States dry mouth is less bothersome today, understands suggestions for soft/moist foods to promote tolerance if dry mouth gets worse. Denies nausea/vomiting. States stools have been softer after bowel r egimen. Current wt 219# remains up from admission (+4kg) though also with +3.4L net I/O documented and 3+ pitting edema. Receiving Lasix intermittently. RD off ered positive affirmations for continuing pattern of protein shakes TID and erica tional high protein meal orders as able. PO intakes are improving and are now ma rginally adequate. Will continue to monitor. Anjelica Valentine MS, RDN, LD Clinical Dietitian - Department of Clinical Nutrition Available on Voalte * Care Plan - Ramírez Macedo RN - 02/21/2023 10:41 AM CDT Problem: Infection, Risk of Goal: Absence of infection Outcome: Goal Ongoing Flowsheets (Taken 02/21/2023 1039) Absence of infection: Assess for infection (Monitor SIRS Criteria) Monitor for signs and symptoms of infection Administer pharmacological therapies as ordered Implement prevention measures as indicated Goal: Knowledge of Infection Control Procedures Outcome: Goal Ongoing Flowsheets (Taken 02/21/2023 1039) Knowledge of Infection Control procedures: Provide Isolation Precautions Educati on Problem: Skin Integrity Goal: Skin integrity intact Outcome: Goal Ongoing Flowsheets (Taken 02/21/2023 1039) Skin integrity intact: Assess nutrition Promote nutrition Assure position change Monitor skin integrity Goal: Healing of skin (Wound & Incision) Outcome: Goal Ongoing Flowsheets (Taken 02/21/2023 1039) Healing of wound (wounds and Incisions): Assess for signs and symptoms of wound infection Assess wound site healing Implement wound/incision care as ordered Provide wound/incision care as ordered Goal: Healing of skin (Pressure Injury) Outcome: Goal Ongoing Flowsheets (Taken 02/21/2023 1039) Healing of skin (Pressure Injury): Assess for signs and symptoms of pressure injury infection Implement pressure relieving device/specialty mattress Promote ambulation Problem: High Fall Risk Goal: High Fall Risk Outcome: Goal Ongoing Flowsheets (Taken 02/21/2023 1039) High Fall Risk: All patients will receive: High fall risk sign, yellow wristband, yellow socks, gait belt, and shower shoes Engage chair alarm Remove excess equipment/supplies Problem: Nutrition Deficit Goal: Adequate nutritional intake Outcome: Goal Ongoing Flowsheets (Taken 02/17/[address]) Adequate nutritional intake: Promote oral fluid intake Problem: Infection, Risk of, Central Venous Catheter-Associated Bloodstream Infe ction Goal: Absence of CVC Associated Bloodstream infection Outcome: Goal Ongoing Flowsheets (Taken 02/21/2023 1039) Absence of CVC associated bloodstream infection: Assess for central line catheter infection (Monitor SIRS criteria) Follow central line bundle components Manage central venous catheter * Care Plan - Anjelica Valentine RD - 02/17/2023 8:35 AM CDT Problem: Nutrition Deficit Goal: Adequate nutritional intake Outcome: Goal Ongoing Flowsheets (Taken 02/17/2023 1518) Adequate nutritional intake: Promote oral fluid intake Recommendation: Continue immunosuppressed diet. Please remind/encourage pt to make PO attempts T ID. Recommend Boost/High protein shakes at least 1x/day and additional if pt does no t order meals. 82 y.o. male with PMH HTN, HLD, ODETTE, DM, PAF, and GERD, admitted with concern fo r acute leukemia. Chemotherapy plan: Azacitidine, C1D1 02/17/23. Pt met malnutrit ion criteria on admit. Has continued on the immunosuppressed diet, though was PHYSIOTHERAPY PRACTICE MANAGER O for procedure on 02/16. States overall his appetite is stable but low. Using pr otein shakes daily while admitted. Received breakfast during visit with eggs, ba con, and Bengali yogurt. Denies nausea. Last BM documented on 02/15. Wt 209# is st able with admit, non-pitting edema and positive I/Os. Meds & labs reviewed; daily vitamin D2 and vitamin B12 on board; ANC 0.36, Plt 47. RD offered positive affirmations for 3x protein sources at breakfast meal and reiterated importance of protein sources at all meals/snacks. Encouraged pt to make meals attempts TID and continue protein shakes at least 1x/day in addition to meals. Pt denies further questions. Will continue to follow. Anjelica Valentine MS, RDN, LD Clinical Dietitian - Department of Clinical Nutrition Available on Voalte documented in this encounter Plan of Treatment Date/Time Name Type Priority Associated Diag noses 02/14/2023 3:11 PM CDT HEMATOLOGIC NEOPLASMS Pathology Routine GENE PANEL BY NGS, WITH INTERPRETATION, NON BLOOD Order Schedule Name Type Priority Associated Diag noses ONE TIME for 1 Occurrences starting 01/25 until 02/14/2023 HEMATOLOGIC NEOPLASMS Pathology Routine GENE PANEL BY NGS, WITH INTERPRETATION, NON BLOOD documented as of this encounter Goals Goal Patient Associated Recent Progress Patient-Stat Aut hor Goal Type Problems ed? Improve quality of life Hospital On track (02/14/2023 No Cem Stout, 9:24 AM CDT) RN documented as of [...] Routine 02/27/2023 (HPDCT) 3:27 AM CDT HC PHOSPHOROUS, SERUM Routine 02/26/2023 (PO4CT) 3:32 AM CDT HC MAGNESIUM (MGCT) Routine 02/26/2023 3:32 AM CDT HC COMPREHENSIVE Routine 02/26/2023 METABOLIC PANEL (CH12CT) 3:32 AM CDT HC CBC W AUTOMATED DIFF Routine 02/26/2023 (HPDCT) 3:32 AM CDT HC URIC ACID Routine 02/26/2023 3:32 AM CDT TRANSFUSE RBC'S Routine 02/25/2023 5:54 AM CDT HC PHOSPHOROUS, SERUM Routine 02/25/2023 (PO4CT) 3:01 AM CDT HC MAGNESIUM (MGCT) Routine 02/25/2023 3:01 AM CDT HC COMPREHENSIVE Routine 02/25/2023 METABOLIC PANEL (CH12CT) 3:01 AM CDT HC CBC W AUTOMATED DIFF Routine 02/25/2023 (HPDCT) 3:01 AM CDT HC ABO GROUP Routine 02/25/2023 3:01 AM CDT HC URIC ACID Routine 02/25/2023 3:01 AM CDT HC PHOSPHOROUS, SERUM Routine 02/24/2023 (PO4CT) 3:18 AM CDT HC MAGNESIUM (MGCT) Routine 02/24/2023 3:18 AM CDT HC COMPREHENSIVE Routine 02/24/2023 METABOLIC PANEL (CH12CT) 3:18 AM CDT HC CBC W AUTOMATED DIFF Routine 02/24/2023 (HPDCT) 3:18 AM CDT HC URIC ACID Routine 02/24/2023 3:18 AM CDT HC VITAMIN B12 Add on 02/24/2023 3:18 AM CDT HC PHOSPHOROUS, SERUM Routine 02/23/2023 5:00 PM CDT CHEST SINGLE VIEW Routine 02/23/2023 1:43 PM CDT HC PHOSPHOROUS, SERUM Routine 02/23/2023 (PO4CT) 4:08 AM CDT HC MAGNESIUM (MGCT) Routine 02/23/2023 4:08 AM CDT HC COMPREHENSIVE Routine 02/23/2023 METABOLIC PANEL (CH12CT) 4:08 AM CDT HC CBC W AUTOMATED DIFF Routine 02/23/2023 (HPDCT) 4:08 AM CDT HC 25-OH VITAMIN D Routine 02/23/2023 4:08 AM CDT HC PTT(APTT) Routine 02/23/2023 4:08 AM CDT HC PT(INR) Routine 02/23/2023 4:08 AM CDT HC FIBRINOGEN Routine 02/23/2023 4:08 AM CDT HC URIC ACID Routine 02/23/2023 4:08 AM CDT HC PHOSPHOROUS, SERUM Routine 02/22/2023 (PO4CT) 3:59 AM CDT HC MAGNESIUM (MGCT) Routine 02/22/2023 3:59 AM CDT HC COMPREHENSIVE Routine 02/22/2023 METABOLIC PANEL (CH12CT) 3:59 AM CDT HC CBC W AUTOMATED DIFF Routine 02/22/2023 (HPDCT) 3:59 AM CDT HC POSACONAZOLE LC-MS/MS Routine 02/22/2023 3:59 AM CDT HC PTT(APTT) Routine 02/22/2023 3:59 AM CDT HC PT(INR) Routine 02/22/2023 3:59 AM CDT HC FIBRINOGEN Routine 02/22/2023 3:59 AM CDT HC URIC ACID Routine 02/22/2023 3:59 AM CDT TRANSFUSE RBC'S Routine 02/21/2023 9:14 AM CDT BLOOD BANK SAMPLE HOLD 02/21/2023 5:18 AM CDT HC ABO GROUP Routine 02/21/2023 5:17 AM CDT HC PHOSPHOROUS, SERUM Routine 02/21/2023 (PO4CT) 3:05 AM CDT HC MAGNESIUM (MGCT) Routine 02/21/2023 3:05 AM CDT HC COMPREHENSIVE Routine 02/21/2023 METABOLIC PANEL (CH12CT) 3:05 AM CDT HC CBC W AUTOMATED DIFF Routine 02/21/2023 (HPDCT) 3:05 AM CDT HC PTT(APTT) Routine 02/21/2023 3:05 AM CDT HC PT(INR) Routine 02/21/2023 3:05 AM CDT HC FIBRINOGEN Routine 02/21/2023 3:05 AM CDT HC URIC ACID Routine 02/21/2023 3:05 AM CDT HC PHOSPHOROUS, SERUM Routine 02/20/2023 (PO4CT) 3:39 AM CDT HC MAGNESIUM (MGCT) Routine 02/20/2023 3:39 AM CDT HC COMPREHENSIVE Routine 02/20/2023 METABOLIC PANEL (CH12CT) 3:39 AM CDT HC CBC W AUTOMATED DIFF Routine 02/20/2023 (HPDCT) 3:39 AM CDT HC PTT(APTT) Routine 02/20/2023 3:39 AM CDT HC PT/INR 1:1 MIX Routine 02/20/2023 3:39 AM CDT HC PT(INR) Routine 02/20/2023 3:39 AM CDT HC FIBRINOGEN Routine 02/20/2023 3:39 AM CDT HC URIC ACID Routine 02/20/2023 3:39 AM CDT US DOPPLER VENOUS RIGHT EMMANUEL 02/19/2023 12:01 PM CDT HC URINALYSIS DIPSTICK Routine 02/19/2023 11:33 AM CDT HC UREA NITROGEN-URINE Routine 02/19/2023 11:33 AM CDT HC SODIUM-URINE Routine 02/19/2023 11:33 AM CDT HC CREATININE-URINE Routine 02/19/2023 11:33 AM CDT POC GLUCOSE 02/19/2023 10:03 AM CDT HC PHOSPHOROUS, SERUM Routine 02/19/2023 (PO4CT) 4:40 AM CDT HC MAGNESIUM (MGCT) Routine 02/19/2023 4:40 AM CDT HC COMPREHENSIVE Routine 02/19/2023 METABOLIC PANEL (CH12CT) 4:40 AM CDT HC CBC W AUTOMATED DIFF Routine 02/19/2023 (HPDCT) 4:40 AM CDT HC PTT(APTT) Routine 02/19/2023 4:40 AM CDT HC PT(INR) Routine 02/19/2023 4:40 AM CDT HC FIBRINOGEN Routine 02/19/2023 4:40 AM CDT HC URIC ACID Routine 02/19/2023 4:40 AM CDT POC GLUCOSE 02/18/2023 11:[address] ABD/PELV WO CONTRAST EMMANUEL 02/18/2023 2:09 PM CDT TRANSFUSE RBC'S Routine 02/18/2023 9:01 AM CDT HC BLOOD TYPING, ABO 02/18/2023 CONFIRM 91 5:15 AM CDT HC ABO GROUP Routine 02/18/2023 4:52 AM CDT HC PHOSPHOROUS, SERUM Routine 02/18/2023 (PO4CT) 3:36 AM CDT HC MAGNESIUM (MGCT) Routine 02/18/2023 3:36 AM CDT HC COMPREHENSIVE Routine 02/18/2023 METABOLIC PANEL (CH12CT) 3:36 AM CDT HC CBC W AUTOMATED DIFF Routine 02/18/2023 (HPDCT) 3:36 AM CDT HC PTT(APTT) Routine 02/18/2023 3:36 AM CDT HC PT(INR) Routine 02/18/2023 3:36 AM CDT HC FIBRINOGEN Routine 02/18/2023 3:36 AM CDT HC URIC ACID Routine 02/18/2023 3:36 AM CDT CULTURE-BLOOD Routine 02/17/2023 W/SENSITIVITY [...] POC GLUCOSE 02/17/2023 7:32 AM CDT HC PHOSPHOROUS, SERUM Routine 02/17/2023 (PO4CT) 4:07 AM CDT HC MAGNESIUM (MGCT) Routine 02/17/2023 4:07 AM CDT HC COMPREHENSIVE Routine 02/17/2023 METABOLIC PANEL (CH12CT) 4:07 AM CDT HC CBC W AUTOMATED DIFF Routine 02/17/2023 (HPDCT) 4:07 AM CDT HC PTT(APTT) Routine 02/17/2023 4:07 AM CDT HC PT(INR) Routine 02/17/2023 4:07 AM CDT HC FIBRINOGEN Routine 02/17/2023 4:07 AM CDT HC URIC ACID Routine 02/17/2023 4:07 AM CDT POC GLUCOSE 02/16/2023 4:53 PM CDT MULTI GATED Routine 02/16/2023 1:16 PM CDT POC GLUCOSE 02/16/2023 8:12 AM CDT HC PHOSPHOROUS, SERUM Routine 02/16/2023 (PO4CT) 4:31 AM CDT HC MAGNESIUM (MGCT) Routine 02/16/2023 4:31 AM CDT HC COMPREHENSIVE Routine 02/16/2023 METABOLIC PANEL (CH12CT) 4:31 AM CDT HC CBC W AUTOMATED DIFF Routine 02/16/2023 (HPDCT) 4:31 AM CDT HC PTT(APTT) Routine 02/16/2023 4:31 AM CDT HC PT(INR) Routine 02/16/2023 4:31 AM CDT HC FIBRINOGEN Routine 02/16/2023 4:31 AM CDT HC URIC ACID Routine 02/16/2023 4:31 AM CDT POC GLUCOSE 02/15/2023 9:29 PM CDT POC GLUCOSE 02/15/2023 5:55 PM CDT PV CAROTID ARTERY DUPLEX Routine 02/15/2023 SCAN 3:29 PM CDT POC GLUCOSE 02/15/2023 2:01 PM CDT ECG 12-LEAD Routine 02/15/2023 12:01 PM CDT HC NT-PRO-BNP Routine 02/15/2023 11:52 AM CDT HC HIGH SENSITIVITY Routine 02/15/2023 TROPONIN I RANDOM 11:52 AM CDT 2D + DOPPLER ECHO W/ Routine 02/15/2023 CONTRAST 11:31 AM CDT POC GLUCOSE 02/15/2023 8:20 AM CDT HC PHOSPHOROUS, SERUM Routine 02/15/2023 (PO4CT) 4:47 AM CDT HC MAGNESIUM (MGCT) Routine 02/15/2023 4:47 AM CDT HC COMPREHENSIVE Routine 02/15/2023 METABOLIC PANEL (CH12CT) 4:47 AM CDT HC CBC W AUTOMATED DIFF Routine 02/15/2023 (HPDCT) 4:47 AM CDT HC PTT(APTT) Routine 02/15/2023 4:47 AM CDT HC PT(INR) Routine 02/15/2023 4:47 AM CDT HC FIBRINOGEN Routine 02/15/2023 4:47 AM CDT HC URIC ACID Routine 02/15/2023 4:47 AM CDT POC GLUCOSE 02/14/2023 9:13 PM CDT POC GLUCOSE 02/14/2023 5:37 PM CDT HC SPECIAL STAINS #2 02/14/2023 (PATHOLOGY) 3:46 PM CDT CHROMOSOMES FISH DNA STAT 02/14/2023 PROBE 3:11 PM CDT CHROMOSOMES BONE MARROW Routine 02/14/2023 3:11 PM CDT FE STAIN Routine 02/14/2023 3:11 PM CDT BONE MARROW ASP Routine 02/14/2023 3:11 PM CDT BONE MARROW BIOPSY Routine 02/14/2023 3:11 PM CDT POC GLUCOSE 02/14/2023 11:21 AM CDT POC GLUCOSE 02/14/2023 8:15 AM CDT HC PHOSPHOROUS, SERUM Routine 02/14/2023 (PO4CT) 4:41 AM CDT HC MAGNESIUM (MGCT) Routine 02/14/2023 4:41 AM CDT HC COMPREHENSIVE Routine 02/14/2023 METABOLIC PANEL (CH12CT) 4:41 AM CDT HC CBC W AUTOMATED DIFF Routine 02/14/2023 (HPDCT) 4:41 AM CDT HC PTT(APTT) Routine 02/14/2023 4:41 AM CDT HC PT(INR) Routine 02/14/2023 4:41 AM CDT HC FIBRINOGEN Routine 02/14/2023 4:41 AM CDT HC URIC ACID Routine 02/14/2023 4:41 AM CDT HC MRSA PNEUMONIA SCREEN Routine 02/13/2023 9:29 PM CDT CHEST SINGLE VIEW Routine 02/13/2023 9:08 PM CDT ECG 12-LEAD Routine 02/13/2023 8:57 PM CDT POC GLUCOSE 02/13/2023 8:46 PM CDT VT FLOW CYTOMETRY 02/13/2023 INTERPRETATION 16/> 8:31 PM CDT MARKERS LEUKEMIA-LYMPHOMA PANEL Routine 02/13/2023 BLOOD 8:31 PM CDT HC PHOSPHOROUS, SERUM Routine 02/13/2023 (PO4CT) 8:30 PM CDT HC MAGNESIUM (MGCT) Routine 02/13/2023 8:30 PM CDT HC COMPREHENSIVE Routine 02/13/2023 METABOLIC PANEL (CH12CT) 8:30 PM CDT HC CBC W AUTOMATED DIFF Routine 02/13/2023 (HPDCT) 8:30 PM CDT HC TP53 PCR ARRAY BLOOD Routine 02/13/2023 8:30 PM CDT VT BLOOD SMEAR PERIPHERAL Routine 02/13/2023 INTERP PHYS W/WRIT REPORT 8:30 PM CDT HC PTT(APTT) Routine 02/13/2023 8:30 PM CDT HC PT(INR) Routine 02/13/2023 8:30 PM CDT HC FIBRINOGEN Routine 02/13/2023 8:30 PM CDT HC URIC ACID Routine 02/13/2023 8:30 PM CDT HC LD(LDH;LACTIC Routine 02/13/2023 DEHYDROGENASE) 8:30 PM CDT HC HEMOGLOBIN A1C Add on 02/13/2023 8:30 PM CDT COVID-19 (SARS-COV-2) PCR Routine 02/13/2023 8:28 PM CDT HC RVP PANEL NASAL SINGLE Add on 02/13/2023 RVPN 8:28 PM CDT TELEMETRY STRIPS-SCAN 02/13/2023 12:00 [...] CDT TELEMETRY STRIPS-SCAN 02/13/2023 12:00 AM CDT documented in this encounter Results * PHOSPHORUS CELLULAR THERAPEUTICS (03/01/2023 4:17 AM CDT) Pathologist Signature Component Value Ref Test Method Analysis Performed A t Range Time Phosphorus 3.5 2.0 - 03/01/2023 [facility] DEPT PAT H AND 4.5 5:18 AM LAB MEDICINE MG/DL CDT Anatomical Location / Laterality Collection Method / Volume Ernestina ection Time Received Time Specimen (Source) BLOOD / Unknown 03/01/2023 4:17 AM CDT 03/01/20 4:[address] [facility] LABORATORY ORDERABLES [facility]/ZIP Code Phone Number Performing [place] [address], [employer] DEPT PATH AND [address] LAB MEDICINE * MAGNESIUM CELLULAR THERAPEUTICS (03/01/2023 4:17 AM CDT) Pathologist Signature Component Value Ref Test Method Analysis Performed A t Range Time Magnesium 2.0 1.6 - 03/01/2023 [facility] DEPT PAT H AND 2.6 5:18 AM LAB MEDICINE mg/dL CDT Anatomical Location / Laterality Collection Method / Volume Ernestina ection Time Received Time Specimen (Source) BLOOD / Unknown 03/01/2023 4:17 AM CDT 03/01/20 23 4:[address] [facility] LABORATORY [facility]ABLES [facility]/ZIP Code Phone Number Performing Address Organization [place], [place] [address] [place], [place] [address]S DEPT PATH AND [address] [facility] LAB MEDICINE * (ABNORMAL) COMPREHENSIVE METABOLIC PANEL CELLULAR THERAPEUTICS (03/01/2023 4:17 AM CDT) Pathologist Signature Component Value Ref [...] Glucose 117 (H) 70 - 100 03/01/2023 [facility] DEPT PAT H AND MG/DL 5:18 AM LAB MEDICINE CDT Blood Urea Nitrogen 20 7 - 25 03/01/2023 [facility] DEPT PATH AND MG/DL 5:18 AM LAB MEDICINE CDT Creatinine 0.93 0.4 - 03/01/2023 [facility] DEPT PAT H AND 1.24 5:18 AM LAB MEDICINE MG/DL CDT Calcium 8.7 8.5 - 03/01/2023 [facility] DEPT PAT H AND 10.6 5:18 AM LAB MEDICINE MG/DL CDT Total Protein 5.5 (L) 6.0 - 03/01/2023 [facility] DEPT P ATH AND 8.0 G/DL 5:18 AM LAB MEDICINE CDT Total Bilirubin 1.4 (H) 0.3 - 03/01/2023 [facility] DEPT PATH AND 1.2 5:18 AM LAB MEDICINE MG/DL CDT Albumin 2.9 (L) 3.5 - 03/01/2023 [facility] DEPT PAT H AND 5.0 G/DL 5:18 AM LAB MEDICINE CDT Alk Phosphatase 82 25 - 110 03/01/2023 [facility] DEPT PATH AND U/L 5:18 AM LAB MEDICINE CDT AST (SGOT) 34 7 - 40 03/01/2023 [facility] DEPT PAT H AND U/L 5:18 AM LAB MEDICINE CDT CO2 28 21 - 30 03/01/2023 [facility] DEPT PAT H AND MMOL/L 5:18 AM LAB MEDICINE CDT ALT (SGPT) 27 7 - 56 03/01/2023 [facility] DEPT PAT H AND U/L 5:18 AM LAB MEDICINE CDT Anion Gap 8 3 - 12 03/01/2023 [facility] DEPT PAT H AND 5:18 AM LAB MEDICINE CDT eGFR >60 >60 03/01/2023 [facility] DEPT PAT H AND mL/min 5:18 AM LAB MEDICINE CDT Comment: eGFR calculated using the CKD-EPIcr_R equation Anatomical Location / Laterality Collection Method / Volume Ernestina ection Time Received Time Specimen (Source) BLOOD / Unknown 03/01/2023 4:17 AM CDT 03/01/20 23 4:41 AM CDT [facility] LABORATORY ORDERABLES SITE SPECIALIST-PHYSIOTHERAPY PRACTICE MANAGER City/State/ZIP Code Phone Number Performing [place] [address], [facility] DEPT PATH AND [address] [facility] LAB MEDICINE * (ABNORMAL) CBC AND DIFF CELLULAR THERAPEUTICS (03/01/2023 4:17 AM CDT) Pathologist Signature Component Value Ref Test Method Analysis Performed A t Range Time White Blood Cells 10.2 4.5 - 03/01/2023 [facility] DE PT PATH AND 11.0 4:54 AM [...] Platelet Count 21 (LL) 150 - 03/01/2023 [facility] DEPT PATH AND 400 K/UL 4:54 AM [...] MEDICINE CDT Platelet Estimate MKD DEC 03/01/2023 [facility] DEPT P ATH AND 6:07 AM LAB MEDICINE CDT Absolute Neutrophil 1.22 (L) 1.8 - 03/01/2023 [facility] DEPT PATH AND Count Manual 7.0 K/UL 6:07 AM LAB MEDICINE CDT Anatomical Location / Laterality Collection Method / Volume Ernestina ection Time Received Time Specimen (Source) BLOOD / Unknown 03/01/2023 4:17 AM CDT 03/01/20 4:41 AM CDT [facility] LABORATORY ORDERABLES SITE SPECIALIST-PHYSIOTHERAPY PRACTICE MANAGER City/State/ZIP Code Phone Number Performing [place] [address], [facility] DEPT PATH AND [address] [facility] LAB MEDICINE * PHOSPHORUS CELLULAR THERAPEUTICS (02/28/2023 3:00 AM CDT) Pathologist Signature Component Value Ref Test Method Analysis Performed A t Range Time Phosphorus 3.3 2.0 - 02/28/2023 [facility] DEPT PAT H AND 4.5 4:01 AM LAB MEDICINE MG/DL CDT Anatomical Location / Laterality Collection Method / Volume Ernestina ection Time Received Time Specimen (Source) BLOOD / Unknown 02/28/2023 3:00 AM CDT 02/29/20 3:[address] [facility] LABORATORY ORDERABLES SITE SPECIALIST-[facility]/ZIP Code Phone Number Performing [place] [address], [employer] DEPT PATH AND [address] LAB MEDICINE * MAGNESIUM CELLULAR THERAPEUTICS (02/28/2023 3:00 AM CDT) Pathologist Signature Component Value Ref Test Method Analysis Performed A t Range Time Magnesium 2.4 1.6 - 02/28/2023 [facility] DEPT PAT H AND 2.6 4:01 AM LAB MEDICINE mg/dL CDT Anatomical Location / Laterality Collection Method / Volume Ernestina ection Time Received Time Specimen (Source) BLOOD / Unknown 02/28/2023 3:00 AM CDT 02/29/20 3:[address] [facility] LABORATORY ORDERABLES [facility]/ZIP Code Phone Number Performing [place] [address], [employer] DEPT PATH AND [address] LAB MEDICINE * (ABNORMAL) COMPREHENSIVE METABOLIC PANEL CELLULAR THERAPEUTICS (02/28/2023 3:00 AM CDT) Pathologist Signature Component Value Ref Test Method Analysis Performed A t Range Time Sodium 138 137 - 02/28/2023 [facility] DEPT PAT H AND 147 4:01 AM LAB MEDICINE MMOL/L CDT Potassium 4.1 3.5 - 02/28/2023 [facility] DEPT PAT H AND 5.1 4:01 AM LAB MEDICINE MMOL/L CDT Chloride 103 98 - 110 02/28/2023 [facility] DEPT PAT H AND MMOL/L 4:01 AM LAB MEDICINE CDT Glucose 119 (H) 70 - 100 02/28/2023 [facility] DEPT PAT H AND MG/DL 4:01 AM LAB MEDICINE CDT Blood Urea Nitrogen 21 7 - 25 02/28/2023 [facility] DEPT PATH AND MG/DL 4:01 AM LAB MEDICINE CDT Creatinine 1.00 0.4 - 02/28/2023 [facility] DEPT PAT H AND 1.24 4:01 AM LAB MEDICINE MG/DL CDT Calcium 8.4 (L) 8.5 - 02/28/2023 [facility] DEPT PAT H AND 10.6 4:01 AM LAB MEDICINE MG/DL CDT Total Protein 5.3 (L) 6.0 - 02/28/2023 [facility] DEPT P ATH AND 8.0 G/DL 4:01 AM LAB MEDICINE CDT Total Bilirubin 1.4 (H) 0.3 - 02/28/2023 [facility] DEPT PATH AND 1.2 4:01 AM LAB MEDICINE MG/DL CDT Albumin 3.0 (L) 3.5 - 02/28/2023 [facility] DEPT PAT H AND 5.0 G/DL 4:01 AM LAB MEDICINE CDT Alk Phosphatase 75 25 - 110 02/28/2023 [facility] DEPT PATH AND U/L 4:01 AM LAB MEDICINE CDT AST (SGOT) 30 7 - 40 02/28/2023 [facility] DEPT PAT H AND U/L 4:01 AM LAB MEDICINE CDT CO2 29 21 - 30 02/28/2023 [facility] DEPT PAT H AND MMOL/L 4:01 AM LAB MEDICINE CDT ALT (SGPT) 25 7 - 56 02/28/2023 [facility] DEPT PAT H AND U/L 4:01 AM LAB MEDICINE CDT Anion Gap 6 3 - 12 02/28/2023 [facility] DEPT PAT H AND 4:01 AM LAB MEDICINE CDT eGFR >60 >60 02/28/2023 [facility] DEPT PAT H AND mL/min 4:01 AM LAB MEDICINE CDT Comment: eGFR calculated using the CKD-EPIcr_R equation Anatomical Location / Laterality Collection Method / Volume Ernestina ection Time Received Time Specimen (Source) BLOOD / Unknown 02/28/2023 3:00 AM CDT 02/29/20 3:25 AM CDT [facility] LABORATORY ORDERABLES SITE SPECIALIST-PHYSIOTHERAPY PRACTICE MANAGER City/State/ZIP Code Phone Number Performing [place] [address], [facility] DEPT PATH AND [address] [facility] LAB MEDICINE * (ABNORMAL) CBC AND DIFF CELLULAR THERAPEUTICS (02/28/2023 3:00 AM CDT) Pathologist Signature Component Value Ref Test Method Analysis Performed A t Range Time White Blood Cells 7.0 4.5 - 02/28/2023 [facility] DE PT PATH AND 11.0 3:42 AM LAB MEDICINE K/UL CDT RBC 2.53 (L) 4.4 - 02/28/2023 [facility] DEPT PAT H AND 5.5 M/UL 3:42 AM LAB MEDICINE CDT Hemoglobin 8.3 (L) 13.5 - 02/28/2023 [facility] DEPT PAT H AND 16.5 3:42 AM LAB MEDICINE GM/DL CDT Hematocrit 24.3 (L) 40 - 50 02/28/2023 [facility] DEPT PAT H AND % 3:42 AM LAB MEDICINE CDT MCV 96.0 80 - 100 02/28/2023 [facility] DEPT PAT H AND FL 3:42 AM LAB MEDICINE CDT MCH 32.9 26 - 34 02/28/2023 [facility] DEPT PAT H AND PG 3:42 AM LAB MEDICINE CDT MCHC 34.2 32.0 - 02/28/2023 [facility] DEPT PAT H AND 36.0 3:42 AM LAB MEDICINE G/DL CDT RDW 17.6 (H) 11 - 15 02/28/2023 [facility] DEPT PAT H AND % 3:42 AM LAB MEDICINE CDT Platelet Count 27 (L) 150 - 02/28/2023 [facility] DEPT PATH AND 400 K/UL 3:42 AM LAB MEDICINE CDT MPV 8.7 7 - 11 02/28/2023 [facility] DEPT PAT H AND FL 3:42 AM LAB MEDICINE CDT Segmented 9 (L) 41 - 77 02/28/2023 [facility] DEPT PAT H AND Neutrophils % 4:43 AM LAB MEDICINE CDT Bands 3 0 - 10 % 02/28/2023 [facility] DEPT PAT H AND 4:43 AM LAB MEDICINE CDT Lymphocytes 32 24 - 44 02/28/2023 [facility] DEPT PAT H AND % 4:43 AM LAB MEDICINE CDT Monocytes 31 (H) 4 - 12 % 02/28/2023 [facility] DEPT PAT H AND 4:43 AM LAB MEDICINE CDT Eosinophil 4 0 - 5 % 02/28/2023 [facility] DEPT PAT H AND 4:43 AM LAB MEDICINE CDT Metamyelocyte 1 % 02/28/2023 [facility] DEPT P ATH AND 4:43 AM LAB MEDICINE CDT Blast 20 % 02/28/2023 [facility] DEPT PAT H AND 4:43 AM LAB MEDICINE CDT ANISO PRESENT 02/28/2023 [facility] DEPT PATH AND 4:43 AM LAB MEDICINE CDT Platelet Estimate MKD DEC 02/28/2023 [facility] DEPT P ATH AND 4:43 AM LAB MEDICINE CDT Absolute Neutrophil 0.84 (L) 1.8 - 02/28/2023 [facility] DEPT PATH AND Count Manual 7.0 K/UL 4:43 AM LAB MEDICINE CDT Anatomical Location / Laterality Collection Method / Volume Ernestina ection Time Received Time Specimen (Source) BLOOD / Unknown 02/28/2023 3:00 AM CDT 02/29/20 3:25 AM CDT [place] LABORATORY ORDERABLES SITE SPECIALIST-PHYSIOTHERAPY PRACTICE MANAGER City/State/ZIP Code Phone Number Performing [place] [address], [facility] DEPT PATH AND [address] LAB MEDICINE * TRANSFUSE APHERESIS PLATELETS (02/27/2023 10:37 AM CDT) Britt Stevens MD BLOOD BANK ORDERABLES City/State/ZIP Code Phone Number Performing [place] [address], [facility] DEPT PATH AND [address] LAB MEDICINE * TRANSFUSE APHERESIS PLATELETS (02/27/2023 10:37 AM CDT) Britt Stevens MD BLOOD BANK ORDERABLES City/State/ZIP Code Phone Number Performing [place] [address], [facility] DEPT PATH AND [address] LAB MEDICINE * PREPARE APHERESIS PLATELETS (02/27/2023 4:20 AM CDT) Pathologist Signature Component Value Ref Test Method Analysis Performed A t Range Time Units Ordered 1 02/27/2023 [facility] DEPT PATH AND 4:23 AM LAB MEDICINE CDT Unit Number [id number] 02/27/2023 [facility] DEPT PATH AND 4 4:25 AM LAB MEDICINE CDT Blood Component Type APHERESIS 02/27/2023 [facility] DEP T PATH AND PLT,LEUKO 4:25 AM LAB MEDICINE REDUCED, CDT PSORALEN TREATED, 1ST CONT Unit Division 00 02/27/2023 [facility] DEPT PATH AND 4:25 AM LAB MEDICINE CDT Status OF Unit TRANSFUSED 02/28/2023 [facility] DEPT PATH AND 12:48 AM LAB MEDICINE CDT ISSUE DATE TIME [id number] 02/28/2023 [facility] DEPT PAT H AND 12:48 AM LAB MEDICINE CDT PRODUCT CODE [id number] 02/28/2023 [facility] DEPT PATH AND 12:48 AM LAB MEDICINE CDT BLOOD TYPE O POS 02/28/2023 [facility] DEPT PATH AND 12:48 AM LAB MEDICINE CDT CODING STATUS 5100 02/28/2023 [facility] DEPT PATH AND 12:48 AM LAB MEDICINE CDT BLOOD EXPIRATION [id number] 02/28/2023 [facility] DE[facility] PA TH AND DATE 12:48 AM LAB MEDICINE CDT Transfusion Status OK TO 02/27/2023 [facility] DEPT PATH AND TRANSFUSE 4:25 AM LAB MEDICINE CDT Anatomical Location / Laterality Collection Method / Volume Ernestina ection Time Received Time Specimen (Source) 02/27/2023 4:20 AM CDT 02/28/20 4:22 AM CDT Other (Specify) Britt Stevens MD BLOOD BANK ORDERABLES City/State/ZIP Code Phone Number Performing Address Organization [address] [employer] DEPT PATH AND [address] LAB MEDICINE * PHOSPHORUS CELLULAR THERAPEUTICS (02/27/2023 3:27 AM CDT) Pathologist Signature Component Value Ref Test Method Analysis Performed A t Range Time Phosphorus 2.5 2.0 - 02/27/2023 [facility] DEPT PAT H AND 4.5 4:32 AM LAB MEDICINE MG/DL CDT Anatomical Location / Laterality Collection Method / Volume Ernestina ection Time Received Time Specimen (Source) BLOOD / Unknown 02/27/2023 3:27 AM CDT 02/28/20 3:53 AM CDT Virgen Hill LABORATORY ORDERABLES SITE SPECIALIST-PHYSIOTHERAPY PRACTICE MANAGER City/State/ZIP Code Phone Number Performing [place] [address], [facility] DEPT PATH AND [address] LAB MEDICINE * MAGNESIUM CELLULAR THERAPEUTICS (02/27/2023 3:27 AM CDT) Pathologist Signature Component Value Ref Test Method Analysis Performed A t Range Time Magnesium 2.0 1.6 - 02/27/2023 [facility] DEPT PAT H AND 2.6 4:32 AM LAB MEDICINE mg/dL CDT Anatomical Location / Laterality Collection Method / Volume Ernestina ection Time Received Time Specimen (Source) BLOOD / Unknown 02/27/2023 3:27 AM CDT 02/28/20 3:53 AM CDT Virgen Barbara Hill LABORATORY ORDERABLES SITE SPECIALIST-PHYSIOTHERAPY PRACTICE MANAGER City/State/ZIP Code Phone Number Performing Address [place] [address], [facility] DEPT PATH AND [address] LAB MEDICINE * (ABNORMAL) COMPREHENSIVE METABOLIC PANEL CELLULAR THERAPEUTICS (02/27/2023 3:27 AM CDT) Pathologist Signature Component Value Ref Test Method Analysis Performed A t Range Time Sodium 138 137 - 02/27/2023 [facility] DEPT PAT H AND 147 4:32 AM LAB MEDICINE MMOL/L CDT Potassium 4.4 3.5 - 02/27/2023 [facility] DEPT PAT H AND 5.1 4:32 AM LAB MEDICINE MMOL/L CDT Chloride 105 98 - 110 02/27/2023 [facility] DEPT PAT H AND MMOL/L 4:32 AM LAB MEDICINE CDT Glucose 126 (H) 70 - 100 02/27/2023 [facility] DEPT PAT H AND MG/DL 4:32 AM LAB MEDICINE CDT Blood Urea Nitrogen 24 7 - 25 02/27/2023 [facility] DEPT PATH AND MG/DL 4:32 AM LAB MEDICINE CDT Creatinine 0.88 0.4 - 02/27/2023 [facility] DEPT PAT H AND 1.24 4:32 AM LAB MEDICINE MG/DL CDT Calcium 8.6 8.5 - 02/27/2023 [facility] DEPT PAT H AND 10.6 4:32 AM LAB MEDICINE MG/DL CDT Total Protein 5.3 (L) 6.0 - 02/27/2023 [facility] DEPT P ATH AND 8.0 G/DL 4:32 AM LAB MEDICINE CDT Total Bilirubin 1.4 (H) 0.3 - 02/27/2023 [facility] DEPT PATH AND 1.2 4:32 AM LAB MEDICINE MG/DL CDT Albumin 2.9 (L) 3.5 - 02/27/2023 [facility] DEPT PAT H AND 5.0 G/DL 4:32 AM LAB MEDICINE CDT Alk Phosphatase 72 25 - 110 02/27/2023 [facility] DEPT PATH AND U/L 4:32 AM LAB MEDICINE CDT AST (SGOT) 31 7 - 40 02/27/2023 [facility] DEPT PAT H AND U/L 4:32 AM LAB MEDICINE CDT CO2 27 21 - 30 02/27/2023 [facility] DEPT PAT H AND MMOL/L 4:32 AM LAB MEDICINE CDT ALT (SGPT) 24 7 - 56 02/27/2023 [facility] DEPT PAT H AND U/L 4:32 AM LAB MEDICINE CDT Anion Gap 6 3 - 12 02/27/2023 [facility] DEPT PAT H AND 4:32 AM LAB MEDICINE CDT eGFR >60 >60 02/27/2023 [facility] DEPT PAT H AND mL/min 4:32 AM LAB MEDICINE CDT Comment: eGFR calculated using the CKD-EPIcr_R equation Anatomical Location / Laterality Collection Method / Volume Ernestina ection Time Received Time Specimen (Source) BLOOD / Unknown 02/27/2023 3:27 AM CDT 02/28/20 3:53 AM CDT Virgen Hill LABORATORY ORDERABLES SITE SPECIALIST-PHYSIOTHERAPY PRACTICE MANAGER City/State/ZIP Code Phone Number Performing Address [place] [address], [facility] DEPT PATH AND [address] LAB MEDICINE * (ABNORMAL) CBC AND DIFF CELLULAR THERAPEUTICS (02/27/2023 3:27 AM CDT) Pathologist Signature Component Value Ref Test Method Analysis Performed A t Range Time White Blood Cells 8.6 4.5 - 02/27/2023 [facility] DE PT PATH AND 11.0 4:15 AM LAB MEDICINE K/UL CDT RBC 2.70 (L) 4.4 - 02/27/2023 [facility] DEPT PAT H AND 5.5 M/UL 4:15 AM LAB MEDICINE CDT Hemoglobin 9.1 (L) 13.5 - 02/27/2023 [facility] DEPT PAT H AND 16.5 4:15 AM LAB MEDICINE GM/DL CDT Hematocrit 26.1 (L) 40 - 50 02/27/2023 [facility] DEPT PAT H AND % 4:15 AM LAB MEDICINE CDT MCV 96.9 80 - 100 02/27/2023 [facility] DEPT PAT H AND FL 4:15 AM LAB MEDICINE CDT MCH 33.7 26 - 34 02/27/2023 [facility] DEPT PAT H AND PG 4:15 AM LAB MEDICINE CDT MCHC 34.7 32.0 - 02/27/2023 [facility] DEPT PAT H AND 36.0 4:15 AM LAB MEDICINE G/DL CDT RDW 17.8 (H) 11 - 15 02/27/2023 [facility] DEPT PAT H AND % 4:15 AM LAB MEDICINE CDT Platelet Count 9 (LL) 150 - 02/27/2023 [facility] DEPT PATH AND 400 K/UL 4:15 AM LAB MEDICINE CDT Comment: Value noted, value unchanged MPV 9.1 7 - 11 02/27/2023 [facility] DEPT PAT H AND FL 4:15 AM LAB MEDICINE CDT Segmented 11 (L) 41 - 77 02/27/2023 [facility] DEPT PAT H AND Neutrophils % 5:03 AM LAB MEDICINE CDT Lymphocytes 39 24 - 44 02/27/2023 [facility] DEPT PAT H AND % 5:03 AM LAB MEDICINE CDT Monocytes 34 (H) 4 - 12 % 02/27/2023 [facility] DEPT PAT H AND 5:03 AM LAB MEDICINE CDT Eosinophil 1 0 - 5 % 02/27/2023 [facility] DEPT PAT H AND 5:03 AM LAB MEDICINE CDT Blast 15 % 02/27/2023 [facility] DEPT PAT H AND 5:03 AM LAB MEDICINE CDT ANISO PRESENT 02/27/2023 [facility] DEPT PATH AND 5:03 AM LAB MEDICINE CDT Platelet Estimate MKD DEC 02/27/2023 [facility] DEPT P ATH AND 5:03 AM LAB MEDICINE CDT Absolute Neutrophil 0.95 (L) 1.8 - 02/27/2023 [facility] DEPT PATH AND Count Manual 7.0 K/UL 5:03 AM LAB MEDICINE CDT Anatomical Location / Laterality Collection Method / Volume Ernestina ection Time Received Time Specimen (Source) BLOOD / Unknown 02/27/2023 3:27 AM CDT 02/28/20 3:53 AM CDT Virgen Burkett [place] LABORATORY ORDERABLES [facility]/ZIP Code Phone Number Performing [place] [address], [facility] AND [address] LAB MEDICINE * (ABNORMAL) URIC ACID (02/26/2023 3:32 AM CDT) Pathologist Signature Component Value Ref Test Method Analysis Performed A t Range Time Uric Acid 2.0 (L) 4.0 - 02/26/2023 [facility] DEPT PAT H AND 8.0 4:52 AM LAB MEDICINE MG/DL CDT Anatomical Location / Laterality Collection Method / Volume Ernestina ection Time Received Time Specimen (Source) BLOOD / Unknown 02/26/2023 3:32 AM CDT 02/27/20 23 4:11 AM CDT Virgen Burkett [place] LABORATORY ORDERABLES [facility]/ZIP Code Phone Number Performing Address Organization [address] [employer] [facility] [address] LAB MEDICINE * (ABNORMAL) PHOSPHORUS CELLULAR THERAPEUTICS (02/26/2023 3:32 AM CDT) Pathologist Signature Component Value Ref Test Method Analysis Performed A t Range Time Phosphorus 1.8 (L) 2.0 - 02/26/2023 [facility] DEPT PAT H AND 4.5 4:52 AM LAB MEDICINE MG/DL CDT Anatomical Location / Laterality Collection Method / Volume Ernestina ection Time Received Time Specimen (Source) BLOOD / Unknown 02/26/2023 3:32 AM CDT 02/27/20 4:11 AM CDT Virgen Bukrett [place] LABORATORY ORDERABLES [facility]/ZIP Code Phone Number Performing Address Organization [address] [facility] DEPT PATH AND [address] LAB MEDICINE * MAGNESIUM CELLULAR THERAPEUTICS (02/26/2023 3:32 AM CDT) Pathologist Signature Component Value Ref Test Method Analysis Performed A t Range Time Magnesium 2.2 1.6 - 02/26/2023 [facility] DEPT PAT H AND 2.6 4:52 AM LAB MEDICINE mg/dL CDT Anatomical Location / Laterality Collection Method / Volume Ernestina ection Time Received Time Specimen (Source) BLOOD / Unknown 02/26/2023 3:32 AM CDT 02/27/20 23 4:11 AM CDT Virgen Hill LABORATORY ORDERABLES SITE SPECIALIST-PHYSIOTHERAPY PRACTICE MANAGER City/State/ZIP Code Phone Number Performing [place] [address], [facility] DEPT PATH AND [address] LAB MEDICINE * (ABNORMAL) COMPREHENSIVE METABOLIC PANEL CELLULAR THERAPEUTICS (02/26/2023 3:32 AM CDT) Pathologist Signature Component Value Ref Test Method Analysis Performed A t Range Time Sodium 138 137 - 02/26/2023 [facility] DEPT PAT H AND 147 4:52 AM LAB MEDICINE MMOL/L CDT Potassium 4.1 3.5 - 02/26/2023 [facility] DEPT PAT H AND 5.1 4:52 AM LAB MEDICINE MMOL/L CDT Chloride 104 98 - 110 02/26/2023 [facility] DEPT PAT H AND MMOL/L 4:52 AM LAB MEDICINE CDT Glucose 138 (H) 70 - 100 02/26/2023 [facility] DEPT PAT H AND MG/DL 4:52 AM LAB MEDICINE CDT Blood Urea Nitrogen 28 (H) 7 - 25 02/26/2023 [facility] DEPT PATH AND MG/DL 4:52 AM LAB MEDICINE CDT Creatinine 0.99 0.4 - 02/26/2023 [facility] DEPT PAT H AND 1.24 4:52 AM LAB MEDICINE MG/DL CDT Calcium 8.4 (L) 8.5 - 02/26/2023 [facility] DEPT PAT H AND 10.6 4:52 AM LAB MEDICINE MG/DL CDT Total Protein 5.3 (L) 6.0 - 02/26/2023 [facility] DEPT P ATH AND 8.0 G/DL 4:52 AM LAB MEDICINE CDT Total Bilirubin 1.7 (H) 0.3 - 02/26/2023 [facility] DEPT PATH AND 1.2 4:52 AM LAB MEDICINE MG/DL CDT Albumin 2.9 (L) 3.5 - 02/26/2023 [facility] DEPT PAT H AND 5.0 G/DL 4:52 AM LAB MEDICINE CDT Alk Phosphatase 70 25 - 110 02/26/2023 [facility] DEPT PATH AND U/L 4:52 AM LAB MEDICINE CDT AST (SGOT) 32 7 - 40 02/26/2023 [facility] DEPT PAT H AND U/L 4:52 AM LAB MEDICINE CDT CO2 28 21 - 30 02/26/2023 [facility] DEPT PAT H AND MMOL/L 4:52 AM LAB MEDICINE CDT ALT (SGPT) 22 7 - 56 02/26/2023 [facility] DEPT PAT H AND U/L 4:52 AM LAB MEDICINE CDT Anion Gap 6 3 - 12 02/26/2023 [facility] DEPT PAT H AND 4:52 AM LAB MEDICINE CDT eGFR >60 >60 02/26/2023 [facility] DEPT PAT H AND mL/min 4:52 AM LAB MEDICINE CDT Comment: eGFR calculated using the CKD-EPIcr_R equation Anatomical Location / Laterality Collection Method / Volume Ernestina ection Time Received Time Specimen (Source) BLOOD / Unknown 02/26/2023 3:32 AM CDT 02/27/20 4:11 AM CDT Virgen Hill LABORATORY ORDERABLES SITE SPECIALIST-PHYSIOTHERAPY PRACTICE MANAGER City/State/ZIP Code Phone Number Performing [place] [address], [facility] DEPT PATH AND [address] LAB MEDICINE * (ABNORMAL) CBC AND DIFF CELLULAR THERAPEUTICS (02/26/2023 3:32 AM CDT) Pathologist Signature Component Value Ref Test Method Analysis Performed A t Range Time White Blood Cells 8.8 4.5 - 02/26/2023 [facility] DE PT PATH AND 11.0 4:30 AM LAB MEDICINE K/UL CDT RBC 2.67 (L) 4.4 - 02/26/2023 [facility] DEPT PAT H AND 5.5 M/UL 4:30 AM LAB MEDICINE CDT Hemoglobin 8.9 (L) 13.5 - 02/26/2023 [facility] DEPT PAT H AND 16.5 4:30 AM LAB MEDICINE GM/DL CDT Hematocrit 25.5 (L) 40 - 50 02/26/2023 [facility] DEPT PAT H AND % 4:30 AM LAB MEDICINE CDT MCV 95.4 80 - 100 02/26/2023 [facility] DEPT PAT H AND FL 4:30 AM LAB MEDICINE CDT MCH 33.3 26 - 34 02/26/2023 [facility] DEPT PAT H AND PG 4:30 AM LAB MEDICINE CDT MCHC 34.9 32.0 - 02/26/2023 [facility] DEPT PAT H AND 36.0 4:30 AM LAB MEDICINE G/DL CDT RDW 18.4 (H) 11 - 15 02/26/2023 [facility] DEPT PAT H AND % 4:30 AM LAB MEDICINE CDT Platelet Count 12 (LL) 150 - 02/26/2023 [facility] DEPT PATH AND 400 K/UL 4:30 AM LAB MEDICINE CDT Comment: Value noted, value unchanged MPV 8.9 7 - 11 02/26/2023 [facility] DEPT PAT H AND FL 4:30 AM LAB MEDICINE CDT Segmented 18 (L) 41 - 77 02/26/2023 [facility] DEPT PAT H AND Neutrophils % 5:41 AM LAB MEDICINE CDT Bands 3 0 - 10 % 02/26/2023 [facility] DEPT PAT H AND 5:41 AM LAB MEDICINE CDT Lymphocytes 37 24 - 44 02/26/2023 [facility] DEPT PAT H AND % 5:41 AM LAB MEDICINE CDT Monocytes 28 (H) 4 - 12 % 02/26/2023 [facility] DEPT PAT H AND 5:41 AM LAB MEDICINE CDT Eosinophil 2 0 - 5 % 02/26/2023 [facility] DEPT PAT H AND 5:41 AM LAB MEDICINE CDT Blast 12 % 02/26/2023 [facility] DEPT PAT H AND 5:41 AM LAB MEDICINE CDT ANISO PRESENT 02/26/2023 [facility] DEPT PATH AND 5:41 AM LAB MEDICINE CDT Ovalocyte PRESENT 02/26/2023 [facility] DEPT PATH AND 5:41 AM LAB MEDICINE CDT Platelet Estimate MKD DEC 02/26/2023 [facility] DEPT P ATH AND 5:41 AM LAB MEDICINE CDT Absolute Neutrophil 1.84 1.8 - 02/26/2023 [facility] DEPT PATH AND Count Manual 7.0 K/UL 5:41 AM LAB MEDICINE CDT Anatomical Location / Laterality Collection Method / Volume Ernestina ection Time Received Time Specimen (Source) BLOOD / Unknown 02/26/2023 3:32 AM CDT 02/27/20 23 4:11 AM CDT Virgen Hill LABORATORY ORDERABLES SITE SPECIALIST-PHYSIOTHERAPY PRACTICE MANAGER City/State/ZIP Code Phone Number Performing [place] [address], [facility] DEPT PATH AND [address] LAB MEDICINE * TRANSFUSE RBC'S (02/25/2023 9:54 AM CDT) Anatomical Location / Laterality Collection Method / Volume Ernestina ection Time Received Time Specimen (Source) BLOOD / Unknown Britt Stevens MD BLOOD BANK ORDERABLES City/State/ZIP Code Phone Number Performing [place] [address], [facility] DEPT PATH AND [address] LAB MEDICINE * TRANSFUSE RBC'S (02/25/2023 9:54 AM CDT) Anatomical Location / Laterality Collection Method / Volume Ernestina ection Time Received Time Specimen (Source) BLOOD / Unknown Britt Stevens MD BLOOD BANK ORDERABLES [facility]/ZIP Code Phone Number Performing [place] [address], [facility] DEPT PATH AND [address] LAB MEDICINE * TYPE & CROSSMATCH (02/25/2023 3:01 AM CDT) Pathologist Signature Component Value Ref Test Method Analysis Performed A t Range Time Units Ordered 1 02/25/2023 [facility] DEPT PATH AND 4:42 AM LAB MEDICINE CDT Crossmatch Expires 02/28/2023,2 02/25/2023 [facility] DEPT PATH AND 359 5:29 AM LAB MEDICINE CDT Record Check FOUND 02/25/2023 [facility] DEPT PATH AND 4:42 AM LAB MEDICINE CDT ABO/RH(D) A POS 02/25/2023 [facility] DEPT PATH AND 5:29 AM LAB MEDICINE CDT Antibody Screen NEG 02/25/2023 [facility] DEPT PAT H AND 5:29 AM LAB MEDICINE CDT Electronic YES 02/25/2023 [facility] DEPT PATH AND Crossmatch 5:29 AM LAB MEDICINE CDT Unit Number [id number] 02/25/2023 [facility] DEPT PATH AND 3 5:29 AM LAB MEDICINE CDT Blood Component Type RBC,ADSOL,LE 02/25/2023 [facility] DEP T PATH AND UKO 5:29 AM LAB MEDICINE REDUCED,IRRA CDT DIATED Unit Division 00 02/25/2023 [facility] DEPT PATH AND 5:29 AM LAB MEDICINE CDT Status OF Unit TRANSFUSED 02/26/2023 [facility] DEPT PATH AND 12:23 AM LAB MEDICINE CDT ISSUE DATE TIME [id number] 02/26/2023 [facility] DEPT PAT H AND 12:23 AM LAB MEDICINE CDT PRODUCT CODE [id number] 02/26/2023 [facility] DEPT PATH AND 12:23 AM LAB MEDICINE CDT BLOOD TYPE A POS 02/26/2023 [facility] DEPT PATH AND 12:23 AM LAB MEDICINE CDT CODING STATUS 6200 02/26/2023 [facility] DEPT PATH AND 12:23 AM LAB MEDICINE CDT BLOOD EXPIRATION [id number] 02/26/2023 [facility] DEPT PA TH AND DATE 12:23 AM LAB MEDICINE CDT Transfusion Status OK TO 02/25/2023 [facility] DEPT PATH AND TRANSFUSE 5:29 AM LAB MEDICINE CDT Crossmatch Result COMPATIBLE,E 02/25/2023 [facility] DEPT P ATH AND LECTRONIC 5:29 AM LAB MEDICINE CDT Anatomical Location / Laterality Collection Method / Volume Ernestina ection Time Received Time Specimen (Source) BLOOD / Unknown 02/25/2023 3:01 AM CDT 02/26/20 4:41 AM CDT Britt Stevens MD BLOOD BANK ORDERABLES City/State/ZIP Code Phone Number Performing [place] [address], [facility] DEPT PATH AND [address] LAB MEDICINE * (ABNORMAL) URIC ACID (02/25/2023 3:01 AM CDT) Pathologist Signature Component Value Ref Test Method Analysis Performed A t Range Time Uric Acid 2.5 (L) 4.0 - 02/25/2023 [facility] DEPT PAT H AND 8.0 4:14 AM LAB MEDICINE MG/DL CDT Anatomical Location / Laterality Collection Method / Volume Ernestina ection Time Received Time Specimen (Source) BLOOD / Unknown 02/25/2023 3:01 AM CDT 02/26/20 3:21 AM CDT Virgen Hill LABORATORY ORDERABLES SITE SPECIALIST-PHYSIOTHERAPY PRACTICE MANAGER City/State/ZIP Code Phone Number Performing [place] [address], [employer] DEPT PATH AND [address] LAB MEDICINE * (ABNORMAL) PHOSPHORUS CELLULAR THERAPEUTICS (02/25/2023 3:01 AM CDT) Pathologist Signature Component Value Ref Test Method Analysis Performed A t Range Time Phosphorus 1.9 (L) 2.0 - 02/25/2023 [facility] DEPT PAT H AND 4.5 4:14 AM LAB MEDICINE MG/DL CDT Anatomical Location / Laterality Collection Method / Volume Ernestina ection Time Received Time Specimen (Source) BLOOD / Unknown 02/25/2023 3:01 AM CDT 02/26/20 3:21 AM CDT Virgen Barbara [place] LABORATORY ORDERABLES [facility]/ZIP Code Phone Number Performing Address Organization [address] [employer] DEPT PATH AND [address] LAB MEDICINE * MAGNESIUM CELLULAR THERAPEUTICS (02/25/2023 3:01 AM CDT) Pathologist Signature Component Value Ref Test Method Analysis Performed A t Range Time Magnesium 2.5 1.6 - 02/25/2023 [facility] DEPT PAT H AND 2.6 4:14 AM LAB MEDICINE mg/dL CDT Anatomical Location / Laterality Collection Method / Volume Ernestian ection Time Received Time Specimen (Source) BLOOD / Unknown 02/25/2023 3:01 AM CDT 02/26/20 3:[address] [facility] LABORATORY ORDERABLES [facility]/ZIP Code Phone Number Performing Address Organization [address] [employer] DEPT PATH AND [address] LAB MEDICINE * (ABNORMAL) COMPREHENSIVE METABOLIC PANEL CELLULAR THERAPEUTICS (02/25/2023 3:01 AM CDT) Pathologist Signature Component Value Ref Test Method Analysis Performed A t Range Time Sodium 136 (L) 137 - 02/25/2023 [facility] DEPT PAT H AND 147 4:14 AM LAB MEDICINE MMOL/L CDT Potassium 3.8 3.5 - 02/25/2023 [facility] DEPT PAT H AND 5.1 4:14 AM LAB MEDICINE MMOL/L CDT Chloride 102 98 - 110 02/25/2023 [facility] DEPT PAT H AND MMOL/L 4:14 AM LAB MEDICINE CDT Glucose 171 (H) 70 - 100 02/25/2023 [facility] DEPT PAT H AND MG/DL 4:14 AM LAB MEDICINE CDT Blood Urea Nitrogen 32 (H) 7 - 25 02/25/2023 [facility] DEPT PATH AND MG/DL 4:14 AM LAB MEDICINE CDT Creatinine 1.29 (H) 0.4 - 02/25/2023 [facility] DEPT PAT H AND 1.24 4:14 AM LAB MEDICINE MG/DL CDT Calcium 8.3 (L) 8.5 - 02/25/2023 [facility] DEPT PAT H AND 10.6 4:14 AM LAB MEDICINE MG/DL CDT Total Protein 5.7 (L) 6.0 - 02/25/2023 [facility] DEPT P ATH AND 8.0 G/DL 4:14 AM LAB MEDICINE CDT Total Bilirubin 1.4 (H) 0.3 - 02/25/2023 [facility] DEPT PATH AND 1.2 4:14 AM LAB MEDICINE MG/DL CDT Albumin 3.0 (L) 3.5 - 02/25/2023 [facility] DEPT PAT H AND 5.0 G/DL 4:14 AM LAB MEDICINE CDT Alk Phosphatase 66 25 - 110 02/25/2023 [facility] DEPT PATH AND U/L 4:14 AM LAB MEDICINE CDT AST (SGOT) 26 7 - 40 02/25/2023 [facility] DEPT PAT H AND U/L 4:14 AM LAB MEDICINE CDT CO2 28 21 - 30 02/25/2023 [facility] DEPT PAT H AND MMOL/L 4:14 AM LAB MEDICINE CDT ALT (SGPT) 19 7 - 56 02/25/2023 [facility] DEPT PAT H AND U/L 4:14 AM LAB MEDICINE CDT Anion Gap 6 3 - 12 02/25/2023 [facility] DEPT PAT H AND 4:14 AM LAB MEDICINE CDT eGFR 55 (L) >60 02/25/2023 [facility] DEPT PAT H AND mL/min 4:14 AM LAB MEDICINE CDT Comment: eGFR calculated using the CKD-EPIcr_R equation Anatomical Location / Laterality Collection Method / Volume Ernestina ection Time Received Time Specimen (Source) BLOOD / Unknown 02/25/2023 3:01 AM CDT 02/26/20 3:21 AM CDT Virgen Hill LABORATORY ORDERABLES SITE SPECIALIST-PHYSIOTHERAPY PRACTICE MANAGER City/State/ZIP Code Phone Number Performing [place] [address], [facility] DEPT PATH AND [address] [place] [address] LAB MEDICINE * (ABNORMAL) CBC AND DIFF CELLULAR THERAPEUTICS (02/25/2023 3:01 AM CDT) Pathologist Signature Component Value Ref Test Method Analysis Performed A t Range Time White Blood Cells 9.0 4.5 - 02/25/2023 [facility] DE PT PATH AND 11.0 3:43 AM LAB MEDICINE K/UL CDT RBC 2.36 (L) 4.4 - 02/25/2023 [facility] DEPT PAT H AND 5.5 M/UL 3:43 AM LAB MEDICINE CDT Hemoglobin 8.0 (L) 13.5 - 02/25/2023 [facility] DEPT PAT H AND 16.5 3:43 AM LAB MEDICINE GM/DL CDT Hematocrit 23.2 (L) 40 - 50 02/25/2023 [facility] DEPT PAT H AND % 3:43 AM LAB MEDICINE CDT MCV 98.3 80 - 100 02/25/2023 [facility] DEPT PAT H AND FL 3:43 AM LAB MEDICINE CDT MCH 34.0 26 - 34 02/25/2023 [facility] DEPT PAT H AND PG 3:43 AM LAB MEDICINE CDT MCHC 34.6 32.0 - 02/25/2023 [facility] DEPT PAT H AND 36.0 3:43 AM LAB MEDICINE G/DL CDT RDW 18.4 (H) 11 - 15 02/25/2023 [facility] DEPT PAT H AND % 3:43 AM LAB MEDICINE CDT Platelet Count 14 (LL) 150 - 02/25/2023 [facility] DEPT PATH AND 400 K/UL 3:43 AM LAB MEDICINE CDT Comment: Value noted, value unchanged MPV 8.7 7 - 11 02/25/2023 [facility] DEPT PAT H AND FL 3:43 AM LAB MEDICINE CDT Segmented 21 (L) 41 - 77 02/25/2023 [facility] DEPT PAT H AND Neutrophils % 5:03 AM LAB MEDICINE CDT Bands 1 0 - 10 % 02/25/2023 [facility] DEPT PAT H AND 5:03 AM LAB MEDICINE CDT Lymphocytes 24 24 - 44 02/25/2023 [facility] DEPT PAT H AND % 5:03 AM LAB MEDICINE CDT Monocytes 32 (H) 4 - 12 % 02/25/2023 [facility] DEPT PAT H AND 5:03 AM LAB MEDICINE CDT Basophil 1 0 - 2 % 02/25/2023 [facility] DEPT PAT H AND 5:03 AM LAB MEDICINE CDT Metamyelocyte 3 % 02/25/2023 [facility] DEPT P ATH AND 5:03 AM LAB MEDICINE CDT Myelocyte 1 % 02/25/2023 [facility] DEPT PAT H AND 5:03 AM LAB MEDICINE CDT Blast 17 % 02/25/2023 [facility] DEPT PAT H AND 5:03 AM LAB MEDICINE CDT ANISO PRESENT 02/25/2023 [facility] DEPT PATH AND 5:03 AM LAB MEDICINE CDT Ovalocyte PRESENT 02/25/2023 [facility] DEPT PATH AND 5:03 AM LAB MEDICINE CDT Platelet Estimate MKD DEC 02/25/2023 [facility] DEPT P ATH AND 5:03 AM LAB MEDICINE CDT Absolute Neutrophil 1.98 1.8 - 02/25/2023 [facility] DEPT PATH AND Count Manual 7.0 K/UL 5:03 AM LAB MEDICINE CDT Anatomical Location / Laterality Collection Method / Volume Ernestina ection Time Received Time Specimen (Source) BLOOD / Unknown 02/25/2023 3:01 AM CDT 02/26/20 3:21 AM CDT Virgen Burkett [place] LABORATORY ORDERABLES [facility]/ZIP Code Phone Number Performing Address Organization [address] [employer] DEPT PATH AND [address] LAB MEDICINE * (ABNORMAL) VITAMIN B12 (02/24/2023 [...] AM CDT 02/25/20 3:33 AM CDT Virgen Burkett [place] LABORATORY ORDERABLES SITE SPECIALIST-[facility]/State/ZIP Code Phone Number Performing Address [place] [address], [employer] DEPT PATH AND [address] LAB MEDICINE * (ABNORMAL) URIC ACID (02/24/2023 3:18 AM CDT) Pathologist Signature Component Value Ref Test Method Analysis Performed A t Range Time Uric Acid 2.4 (L) 4.0 - 02/24/2023 [facility] DEPT PAT H AND 8.0 4:10 AM LAB MEDICINE MG/DL CDT Anatomical Location / Laterality Collection Method / Volume Ernestina ection Time Received Time Specimen (Source) BLOOD / Unknown 02/24/2023 3:18 AM CDT 02/25/20 3:33 AM CDT Virgen Burkett [place] [facility]ATORY [facility]State/ZIP Code Phone Number Performing Address [place] [address], [employer] DEPT PATH AND [address] [facility] LAB MEDICINE * PHOSPHORUS CELLULAR THERAPEUTICS (02/24/2023 3:18 AM CDT) Pathologist Signature Component Value Ref Test Method Analysis Performed A t Range Time Phosphorus 2.4 2.0 - 02/24/2023 [facility] DEPT PAT H AND 4.5 4:10 AM LAB MEDICINE MG/DL CDT Anatomical Location / Laterality Collection Method / Volume Ernestina ection Time Received Time Specimen (Source) BLOOD / Unknown 02/24/2023 3:18 AM CDT 02/25/20 3:33 AM CDT Virgen Burkett [place] LABORATORY ORDERABLES SITE SPECIALISTEncompass Health/[facility]/ZIP Code Phone Number Performing [place] [address], [employer] PATH AND [address] [facility] LAB MEDICINE * MAGNESIUM CELLULAR THERAPEUTICS (02/24/2023 3:18 AM CDT) Pathologist Signature Component Value Ref Test Method Analysis Performed A t Range Time Magnesium 2.0 1.6 - 02/24/2023 [facility] DEPT PAT H AND 2.6 4:10 AM LAB MEDICINE mg/dL CDT Anatomical Location / Laterality Collection Method / Volume Ernestina ection Time Received Time Specimen (Source) BLOOD / Unknown 02/24/2023 3:18 AM CDT 02/25/20 3:33 AM CDT Virgen Burkett [place] LABORATORY ORDERABLES [facility]/ZIP Code Phone Number Performing [place] [address], [employer] DEPT PATH AND [address] LAB MEDICINE * (ABNORMAL) COMPREHENSIVE METABOLIC PANEL CELLULAR THERAPEUTICS (02/24/2023 3:18 AM CDT) Pathologist Signature Component Value Ref Test Method Analysis Performed A t Range Time Sodium 138 137 - 02/24/2023 [facility] DEPT PAT H AND 147 4:10 AM LAB MEDICINE MMOL/L CDT Potassium 3.7 3.5 - 02/24/2023 [facility] DEPT PAT H AND 5.1 4:10 AM LAB MEDICINE MMOL/L CDT Chloride 105 98 - 110 02/24/2023 [facility] DEPT PAT H AND MMOL/L 4:10 AM LAB MEDICINE CDT Glucose 137 (H) 70 - 100 02/24/2023 [facility] DEPT PAT H AND MG/DL 4:10 AM LAB MEDICINE CDT Blood Urea Nitrogen 31 (H) 7 - 25 02/24/2023 [facility] DEPT PATH AND MG/DL 4:10 AM LAB MEDICINE CDT Creatinine 1.14 0.4 - 02/24/2023 [facility] DEPT PAT H AND 1.24 4:10 AM LAB MEDICINE MG/DL CDT Calcium 8.3 (L) 8.5 - 02/24/2023 [facility] DEPT PAT H AND 10.6 4:10 AM LAB MEDICINE MG/DL CDT Total Protein 5.4 (L) 6.0 - 02/24/2023 [facility] DEPT P ATH AND 8.0 G/DL 4:10 AM LAB MEDICINE CDT Total Bilirubin 1.7 (H) 0.3 - 02/24/2023 [facility] DEPT PATH AND 1.2 4:10 AM LAB MEDICINE MG/DL CDT Albumin 3.0 (L) 3.5 - 02/24/2023 [facility] DEPT PAT H AND 5.0 G/DL 4:10 AM LAB MEDICINE CDT Alk Phosphatase 61 25 - 110 02/24/2023 [facility] DEPT PATH AND U/L 4:10 AM LAB MEDICINE CDT AST (SGOT) 22 7 - 40 02/24/2023 [facility] DEPT PAT H AND U/L 4:10 AM LAB MEDICINE CDT CO2 25 21 - 30 02/24/2023 [facility] DEPT PAT H AND MMOL/L 4:10 AM LAB MEDICINE CDT ALT (SGPT) 16 7 - 56 02/24/2023 [facility] DEPT PAT H AND U/L 4:10 AM LAB MEDICINE CDT Anion Gap 8 3 - 12 02/24/2023 [facility] DEPT PAT H AND 4:10 AM LAB MEDICINE CDT eGFR >60 >60 02/24/2023 [facility] DEPT PAT H AND mL/min 4:10 AM LAB MEDICINE CDT Comment: eGFR calculated using the CKD-EPIcr_R equation Anatomical Location / Laterality Collection Method / Volume Ernestina ection Time Received Time Specimen (Source) BLOOD / Unknown 02/24/2023 3:18 AM CDT 02/25/20 23 3:33 AM CDT Virgen Burkett [place] LABORATORY ORDERABLES SITE SPECIALIST-PHYSIOTHERAPY PRACTICE MANAGER City/State/ZIP Code Phone Number Performing Address [place] [address], [facility] DEPT PATH AND [address] [facility] LAB MEDICINE * (ABNORMAL) CBC AND DIFF CELLULAR THERAPEUTICS (02/24/2023 3:18 AM CDT) Pathologist Signature Component Value Ref Test Method Analysis Performed A t Range Time White Blood Cells 10.7 4.5 - 02/24/2023 [facility] DE PT PATH AND 11.0 3:53 AM LAB MEDICINE K/UL CDT RBC 2.39 (L) 4.4 - 02/24/2023 [facility] DEPT PAT H AND 5.5 M/UL 3:53 AM LAB MEDICINE CDT Hemoglobin 8.3 (L) 13.5 - 02/24/2023 [facility] DEPT PAT H AND 16.5 3:53 AM LAB MEDICINE GM/DL CDT Hematocrit 23.6 (L) 40 - 50 02/24/2023 [facility] DEPT PAT H AND % 3:53 AM LAB MEDICINE CDT MCV 98.7 80 - 100 02/24/2023 [facility] DEPT PAT H AND FL 3:53 AM LAB MEDICINE CDT MCH 34.8 (H) 26 - 34 02/24/2023 [facility] DEPT PAT H AND PG 3:53 AM LAB MEDICINE CDT MCHC 35.2 32.0 - 02/24/2023 [facility] DEPT PAT H AND 36.0 3:53 AM LAB MEDICINE G/DL CDT RDW 18.5 (H) 11 - 15 02/24/2023 [facility] DEPT PAT H AND % 3:53 AM LAB MEDICINE CDT Platelet Count 15 (LL) 150 - 02/24/2023 [facility] DEPT PATH AND 400 K/UL 3:53 AM LAB MEDICINE CDT Comment: Value noted, value unchanged MPV 8.5 7 - 11 02/24/2023 [facility] DEPT PAT H AND FL 3:53 AM LAB MEDICINE CDT Nucleated RBCs 1 K/UL 02/24/2023 [facility] DEPT PATH AND 5:22 AM LAB MEDICINE CDT Segmented 14 (L) 41 - 77 02/24/2023 [facility] DEPT PAT H AND Neutrophils % 5:22 AM LAB MEDICINE CDT Lymphocytes 33 24 - 44 02/24/2023 [facility] DEPT PAT H AND % 5:22 AM LAB MEDICINE CDT Monocytes 18 (H) 4 - 12 % 02/24/2023 [facility] DEPT PAT H AND 5:22 AM LAB MEDICINE CDT Metamyelocyte 2 % 02/24/2023 [facility] DEPT P ATH AND 5:22 AM LAB MEDICINE CDT Blast 33 % 02/24/2023 [facility] DEPT PAT H AND 5:22 AM LAB MEDICINE CDT ANISO PRESENT 02/24/2023 [facility] DEPT PATH AND 5:22 AM LAB MEDICINE CDT HYPO PRESENT 02/24/2023 [facility] DEPT PATH AND 5:22 AM LAB MEDICINE CDT Platelet Estimate MKD DEC 02/24/2023 [facility] DEPT P ATH AND 5:22 AM LAB MEDICINE CDT Absolute Neutrophil 1.50 (L) 1.8 - 02/24/2023 [facility] DEPT PATH AND Count Manual 7.0 K/UL 5:22 AM LAB MEDICINE CDT Anatomical Location / Laterality Collection Method / Volume Ernestina ection Time Received Time Specimen (Source) BLOOD / Unknown 02/24/2023 3:18 AM CDT 02/25/20 23 3:33 AM CDT Virgen Hill LABORATORY ORDERABLES SITE SPECIALIST-PHYSIOTHERAPY PRACTICE MANAGER City/State/ZIP Code Phone Number Performing [place] [address], [facility] DEPT PATH AND [address] [facility]. LAB MEDICINE * PHOSPHORUS (02/23/2023 5:00 PM CDT) Pathologist Signature Component Value Ref Test Method Analysis Performed A t Range Time Phosphorus 2.3 2.0 - 02/23/2023 [facility] DEPT PAT H AND 4.5 5:45 PM LAB MEDICINE MG/DL CDT Anatomical Location / Laterality Collection Method / Volume Ernestina ection Time Received Time Specimen (Source) BLOOD / Unknown 02/23/2023 5:00 PM CDT 02/24/20 5:11 PM CDT Dania Bradshaw LABORATORY ORDERABLES SITE SPECIALIST-PHYSIOTHERAPY PRACTICE MANAGER City/State/ZIP Code Phone Number Performing [place] [address], [facility] [employer] [employer] PATH AND [address] [facility]. LAB MEDICINE * CHEST SINGLE VIEW (02/23/2023 1:43 PM CDT) Modality Anatomical Region Laterality Computed [...] PM. Dania Bradshaw DIAGNOSTIC IMAGING ORDERABL ES SITE SPECIALIST-PHYSIOTHERAPY PRACTICE MANAGER * (ABNORMAL) URIC ACID (02/23/2023 4:08 AM CDT) Pathologist Signature Component Value Ref Test Method Analysis Performed A t Range Time Uric Acid 2.5 (L) 4.0 - 02/23/2023 [facility] DEPT PAT H AND 8.0 5:19 AM LAB MEDICINE MG/DL CDT Anatomical Location / Laterality Collection Method / Volume Ernestina ection Time Received Time Specimen (Source) BLOOD / Unknown 02/23/2023 4:08 AM CDT 02/24/20 23 4:38 AM CDT Virgen Hill LABORATORY ORDERABLES SITE SPECIALIST-PHYSIOTHERAPY PRACTICE MANAGER City/State/ZIP Code Phone Number Performing Address Organization [address] [employer] DEPT PATH AND [address] LAB MEDICINE * FIBRINOGEN (02/23/2023 4:08 AM CDT) Pathologist Signature Component Value Ref Test Method Analysis Performed A t Range Time Fibrinogen 350 200 - 02/23/2023 [facility] DEPT PAT H AND 400 5:18 AM LAB MEDICINE MG/DL CDT Anatomical Location / Laterality Collection Method / Volume Ernestina ection Time Received Time Specimen (Source) BLOOD / Unknown 02/23/2023 4:08 AM CDT 02/24/20 23 4:38 AM CDT Virgen Burkett [place] LABORATORY ORDERABLES SITE SPECIALIST-PHYSIOTHERAPY PRACTICE MANAGER [facility]/State/ZIP Code Phone Number Performing [place] [address], [employer] DEPT PATH AND [address] LAB MEDICINE * (ABNORMAL) PHOSPHORUS CELLULAR THERAPEUTICS (02/23/2023 4:08 AM CDT) Pathologist Signature Component Value Ref Test Method Analysis Performed A t Range Time Phosphorus 1.3 (LL) 2.0 - 02/23/2023 [facility] DEPT PAT H AND 4.5 5:23 AM LAB MEDICINE MG/DL CDT Comment: CRITICAL VALUE CALLED TO AND READ BACK BY/TIME/TECH HALEY NUNEZ at 02/23/2023 05:22:47 by 753 Anatomical Location / Laterality Collection Method / Volume Ernestina ection Time Received Time Specimen (Source) BLOOD / Unknown 02/23/2023 4:08 AM CDT 02/24/20 23 4:[address] [facility] LABORATORY ORDERABLES [facility]/ZIP Code Phone Number Performing Address Organization [address] [employer] DEPT PATH AND [address] [facility] LAB MEDICINE * MAGNESIUM CELLULAR THERAPEUTICS (02/23/2023 4:08 AM CDT) Pathologist Signature Component Value Ref Test Method Analysis Performed A t Range Time Magnesium 2.2 1.6 - 02/23/2023 [facility] DEPT PAT H AND 2.6 5:19 AM LAB MEDICINE mg/dL CDT Anatomical Location / Laterality Collection Method / Volume Ernestina ection Time Received Time Specimen (Source) BLOOD / Unknown 02/23/2023 4:08 AM CDT 02/24/20 4:[address] [facility] LABORATORY ORDERABLES [facility]/ZIP Code Phone Number Performing Address Organization [address] [employer] DEPT PATH AND [address] [facility] LAB MEDICINE * (ABNORMAL) COMPREHENSIVE METABOLIC PANEL CELLULAR THERAPEUTICS (02/23/2023 4:08 AM CDT) Pathologist Signature Component Value Ref Test Method Analysis Performed A t Range Time Sodium 136 (L) 137 - 02/23/2023 [facility] DEPT PAT H AND 147 5:19 AM LAB MEDICINE MMOL/L CDT Potassium 4.2 3.5 - 02/23/2023 [facility] DEPT PAT H AND 5.1 5:19 AM LAB MEDICINE MMOL/L CDT Chloride 106 98 - 110 02/23/2023 [facility] DEPT PAT H AND MMOL/L 5:19 AM LAB MEDICINE CDT Glucose 178 (H) 70 - 100 02/23/2023 [facility] DEPT PAT H AND MG/DL 5:19 AM LAB MEDICINE CDT Blood Urea Nitrogen 30 (H) 7 - 25 02/23/2023 [facility] DEPT PATH AND MG/DL 5:19 AM LAB MEDICINE CDT Creatinine 1.14 0.4 - 02/23/2023 [facility] DEPT PAT H AND 1.24 5:19 AM LAB MEDICINE MG/DL CDT Calcium 8.7 8.5 - 02/23/2023 [facility] DEPT PAT H AND 10.6 5:19 AM LAB MEDICINE MG/DL CDT Total Protein 5.8 (L) 6.0 - 02/23/2023 [facility] DEPT P ATH AND 8.0 G/DL 5:19 AM LAB MEDICINE CDT Total Bilirubin 1.6 (H) 0.3 - 02/23/2023 [facility] DEPT PATH AND 1.2 5:19 AM LAB MEDICINE MG/DL CDT Albumin 3.2 (L) 3.5 - 02/23/2023 [facility] DEPT PAT H AND 5.0 G/DL 5:19 AM LAB MEDICINE CDT Alk Phosphatase 69 25 - 110 02/23/2023 [facility] DEPT PATH AND U/L 5:19 AM LAB MEDICINE CDT AST (SGOT) 25 7 - 40 02/23/2023 [facility] DEPT PAT H AND U/L 5:19 AM LAB MEDICINE CDT CO2 24 21 - 30 02/23/2023 [facility] DEPT PAT H AND MMOL/L 5:19 AM LAB MEDICINE CDT ALT (SGPT) 15 7 - 56 02/23/2023 [facility] DEPT PAT H AND U/L 5:19 AM LAB MEDICINE CDT Anion Gap 6 3 - 12 02/23/2023 [facility] DEPT PAT H AND 5:19 AM LAB MEDICINE CDT eGFR >60 >60 02/23/2023 [facility] DEPT PAT H AND mL/min 5:19 AM LAB MEDICINE CDT Comment: eGFR calculated using the CKD-EPIcr_R equation Anatomical Location / Laterality Collection Method / Volume Ernestina ection Time Received Time Specimen (Source) BLOOD / Unknown 02/23/2023 4:08 AM CDT 02/24/20 4:38 AM CDT Virgen Hill LABORATORY ORDERABLES SITE SPECIALIST-PHYSIOTHERAPY PRACTICE MANAGER City/State/ZIP Code Phone Number Performing [place] [address], [facility] DEPT PATH AND [address] [facility] LAB MEDICINE * PTT (APTT) (02/23/2023 4:08 AM CDT) Pathologist Signature Component Value Ref Test Method Analysis Performed A t Range Time APTT 32.8 24.0 - 02/23/2023 [facility] DEPT PAT H AND 36.5 SEC 5:18 AM LAB MEDICINE CDT Anatomical Location / Laterality Collection Method / Volume Ernestina ection Time Received Time Specimen (Source) BLOOD / Unknown 02/23/2023 4:08 AM CDT 02/24/20 4:[address] [facility] LABORATORY ORDERABLES [facility]/ZIP Code Phone Number Performing Address Organization [address] [employer] DEPT PATH AND [address] [facility] LAB MEDICINE * (ABNORMAL) PROTIME INR (PT) (02/23/2023 4:08 AM CDT) Pathologist Signature Component [...] 4:08 AM CDT 02/24/20 4:[address] [facility] LABORATORY ORDERABLES [facility]/ZIP Code Phone Number Performing Address Organization [address] [employer] DEPT PATH AND [address] [facility] LAB MEDICINE * (ABNORMAL) CBC AND DIFF CELLULAR THERAPEUTICS (02/23/2023 4:08 AM CDT) Pathologist Signature Component Value Ref Test Method Analysis Performed A t Range Time White Blood Cells 11.2 (H) 4.5 - 02/23/2023 [facility] DE PT PATH AND 11.0 4:48 AM LAB MEDICINE K/UL CDT RBC 2.53 (L) 4.4 - 02/23/2023 [facility] DEPT PAT H AND 5.5 M/UL 4:48 AM LAB MEDICINE CDT Hemoglobin 8.6 (L) 13.5 - 02/23/2023 [facility] DEPT PAT H AND 16.5 4:48 AM LAB MEDICINE GM/DL CDT Hematocrit 24.7 (L) 40 - 50 02/23/2023 [facility] DEPT PAT H AND % 4:48 AM LAB MEDICINE CDT MCV 97.9 80 - 100 02/23/2023 [facility] DEPT PAT H AND FL 4:48 AM LAB MEDICINE CDT MCH 34.0 26 - 34 02/23/2023 [facility] DEPT PAT H AND PG 4:48 AM LAB MEDICINE CDT MCHC 34.7 32.0 - 02/23/2023 [facility] DEPT PAT H AND 36.0 4:48 AM LAB MEDICINE G/DL CDT RDW 18.8 (H) 11 - 15 02/23/2023 [facility] DEPT PAT H AND % 4:48 AM LAB MEDICINE CDT Platelet Count 18 (LL) 150 - 02/23/2023 [facility] DEPT PATH AND 400 K/UL 4:48 AM LAB MEDICINE CDT Comment: Value noted, value unchanged MPV 8.6 7 - 11 02/23/2023 [facility] DEPT PAT H AND FL 4:48 AM LAB MEDICINE CDT Segmented 7 (L) 41 - 77 02/23/2023 [facility] DEPT PAT H AND Neutrophils % 7:00 AM LAB MEDICINE CDT Lymphocytes 24 24 - 44 02/23/2023 [facility] DEPT PAT H AND % 7:00 AM LAB MEDICINE CDT Monocytes 12 4 - 12 % 02/23/2023 [facility] DEPT PAT H AND 7:00 AM LAB MEDICINE CDT Eosinophil 1 0 - 5 % 02/23/2023 [facility] DEPT PAT H AND 7:00 AM LAB MEDICINE CDT Metamyelocyte 1 % 02/23/2023 [facility] DEPT P ATH AND 7:00 AM LAB MEDICINE CDT Myelocyte 1 % 02/23/2023 [facility] DEPT PAT H AND 7:00 AM LAB MEDICINE CDT Blast 54 % 02/23/2023 [facility] DEPT PAT H AND 7:00 AM LAB MEDICINE CDT ANISO PRESENT 02/23/2023 [facility] DEPT PATH AND 7:00 AM LAB MEDICINE CDT POLY PRESENT 02/23/2023 [facility] DEPT PATH AND 7:00 AM LAB MEDICINE CDT Ovalocyte PRESENT 02/23/2023 [facility] DEPT PATH AND 7:00 AM LAB MEDICINE CDT MACRO PRESENT 02/23/2023 [facility] DEPT PATH AND 7:00 AM LAB MEDICINE CDT Platelet Estimate MKD DEC 02/23/2023 [facility] DEPT P ATH AND 7:00 AM LAB MEDICINE CDT Absolute Neutrophil 0.78 (L) 1.8 - 02/23/2023 [facility] DEPT PATH AND Count Manual 7.0 K/UL 7:00 AM LAB MEDICINE CDT Anatomical Location / Laterality Collection Method / Volume Ernestina ection Time Received Time Specimen (Source) BLOOD / Unknown 02/23/2023 4:08 AM CDT 02/24/20 4:38 AM CDT Virgen Hill LABORATORY ORDERABLES [facility]/ZIP Code Phone Number Performing Address Organization [address] DEPT PATH AND [address] [facility] LAB MEDICINE * (ABNORMAL) 25-OH VITAMIN D (D2 + D3) (02/23/2023 4:08 AM CDT) Pathologist Signature Component Value Ref Test Method Analysis Performed A t Range Time Vitamin 85.9 (H) 30 - 80 02/23/2023 [facility] DEPT PAT H AND D(25-OH)Total NG/ML 9:08 AM LAB MEDICINE CDT Anatomical Location / Laterality Collection Method / Volume Ernestina ection Time Received Time Specimen (Source) BLOOD / Unknown 02/23/2023 4:08 AM CDT 02/24/20 23 4:38 AM CDT Debi Puentes LABORATORY ORDERABLES SITE SPECIALIST[facility]/ZIP Code Phone Number Performing Address Organization [address] DEPT PATH AND [address] [facility] LAB MEDICINE * (ABNORMAL) URIC ACID (02/22/2023 3:59 AM CDT) Pathologist Signature Component Value Ref Test Method Analysis Performed A t Range Time Uric Acid 3.0 (L) 4.0 - 02/22/2023 [facility] DEPT PAT H AND 8.0 6:07 AM LAB MEDICINE MG/DL CDT Anatomical Location / Laterality Collection Method / Volume Ernestina ection Time Received Time Specimen (Source) BLOOD / Unknown 02/22/2023 3:59 AM CDT 02/23/20 23 5:17 AM CDT Virgen Hill LABORATORY ORDERABLES SITE SPECIALIST-PHYSIOTHERAPY PRACTICE MANAGER [facility]/State/ZIP Code Phone Number Performing [place] [address], [employer] DEPT PATH AND [address] [facility] LAB [facility] * FIBRINOGEN (02/22/2023 3:59 AM CDT) Pathologist Signature Component Value Ref Test Method Analysis Performed A t Range Time Fibrinogen 315 200 - 02/22/2023 [facility] DEPT PAT H AND 400 6:04 AM LAB MEDICINE MG/DL CDT Anatomical Location / Laterality Collection Method / Volume Ernestina ection Time Received Time Specimen (Source) BLOOD / Unknown 02/22/2023 3:59 AM CDT 02/23/20 23 5:17 AM CDT Virgen Hill LABORATORY ORDERABLES SITE SPECIALIST-[facility]/ZIP Code Phone Number Performing [place] [address], [employer] DEPT PATH AND [address] [facility] * PHOSPHORUS CELLULAR THERAPEUTICS (02/22/2023 3:59 AM CDT) Pathologist Signature Component Value Ref Test Method Analysis Performed A t Range Time Phosphorus 2.0 2.0 - 02/22/2023 [facility] DEPT PAT H AND 4.5 6:07 AM LAB MEDICINE MG/DL CDT Anatomical Location / Laterality Collection Method / Volume Ernestina ection Time Received Time Specimen (Source) BLOOD / Unknown 02/22/2023 3:59 AM CDT 02/23/20 23 5:17 AM CDT Virgen Hill LABORATORY ORDERABLES SITE SPECIALIST-[facility]/ZIP Code Phone Number Performing [place] [address], [employer] DEPT PATH AND [address] [facility] * MAGNESIUM CELLULAR THERAPEUTICS (02/22/2023 3:59 AM CDT) Pathologist Signature Component Value Ref Test Method Analysis Performed A t Range Time Magnesium 2.2 1.6 - 02/22/2023 [facility] DEPT PAT H AND 2.6 6:07 AM LAB MEDICINE mg/dL CDT Anatomical Location / Laterality Collection Method / Volume Ernestina ection Time Received Time Specimen (Source) BLOOD / Unknown 02/22/2023 3:59 AM CDT 02/23/20 23 5:17 AM CDT Virgen Burkett Hill LABORATORY ORDERABLES SITE SPECIALIST-PHYSIOTHERAPY PRACTICE MANAGER City/State/ZIP Code Phone Number Performing [place] [address], [facility] DEPT PATH AND [address] LAB MEDICINE * (ABNORMAL) COMPREHENSIVE METABOLIC PANEL CELLULAR THERAPEUTICS (02/22/2023 3:59 AM CDT) Pathologist Signature Component Value Ref Test Method Analysis Performed A t Range Time Sodium 138 137 - 02/22/2023 [facility] DEPT PAT H AND 147 6:07 AM LAB MEDICINE MMOL/L CDT Potassium 4.2 3.5 - 02/22/2023 [facility] DEPT PAT H AND 5.1 6:07 AM LAB MEDICINE MMOL/L CDT Chloride 107 98 - 110 02/22/2023 [facility] DEPT PAT H AND MMOL/L 6:07 AM LAB MEDICINE CDT Glucose 129 (H) 70 - 100 02/22/2023 [facility] DEPT PAT H AND MG/DL 6:07 AM LAB MEDICINE CDT Blood Urea Nitrogen 28 (H) 7 - 25 02/22/2023 [facility] DEPT PATH AND MG/DL 6:07 AM LAB MEDICINE CDT Creatinine 1.17 0.4 - 02/22/2023 [facility] DEPT PAT H AND 1.24 6:07 AM LAB MEDICINE MG/DL CDT Calcium 8.8 8.5 - 02/22/2023 [facility] DEPT PAT H AND 10.6 6:07 AM LAB MEDICINE MG/DL CDT Total Protein 5.6 (L) 6.0 - 02/22/2023 [facility] DEPT P ATH AND 8.0 G/DL 6:07 AM LAB MEDICINE CDT Total Bilirubin 1.8 (H) 0.3 - 02/22/2023 [facility] DEPT PATH AND 1.2 6:07 AM LAB MEDICINE MG/DL CDT Albumin 3.3 (L) 3.5 - 02/22/2023 [facility] DEPT PAT H AND 5.0 G/DL 6:07 AM LAB MEDICINE CDT Alk Phosphatase 56 25 - 110 02/22/2023 [facility] DEPT PATH AND U/L 6:07 AM LAB MEDICINE CDT AST (SGOT) 25 7 - 40 02/22/2023 [facility] DEPT PAT H AND U/L 6:07 AM LAB MEDICINE CDT CO2 24 21 - 30 02/22/2023 [facility] DEPT PAT H AND MMOL/L 6:07 AM LAB MEDICINE CDT ALT (SGPT) 15 7 - 56 02/22/2023 [facility] DEPT PAT H AND U/L 6:07 AM LAB MEDICINE CDT Anion Gap 7 3 - 12 02/22/2023 [facility] DEPT PAT H AND 6:07 AM LAB MEDICINE CDT eGFR >60 >60 02/22/2023 [facility] DEPT PAT H AND mL/min 6:07 AM LAB MEDICINE CDT Comment: eGFR calculated using the CKD-EPIcr_R equation Anatomical Location / Laterality Collection Method / Volume Ernestina ection Time Received Time Specimen (Source) BLOOD / Unknown 02/22/2023 3:59 AM CDT 02/23/20 23 5:[address] [facility] LABORATORY ORDERABLES [facility] Code Phone Number Performing [place] [address], [employer] DEPT PATH AND [address] LAB MEDICINE * PTT (APTT) (02/22/2023 3:59 AM CDT) Pathologist Signature Component Value Ref Test Method Analysis Performed A t Range Time APTT 34.5 24.0 - 02/22/2023 [facility] DEPT PAT H AND 36.5 SEC 6:04 AM LAB MEDICINE CDT Anatomical Location / Laterality Collection Method / Volume Ernestina ection Time Received Time Specimen (Source) BLOOD / Unknown 02/22/2023 3:59 AM CDT 02/23/20 23 5:[address] [facility] LABORATORY ORDERABLES S[facility]/ZIP Code Phone Number Performing [place] [address], [employer] DEPT PATH AND [address] [facility] LAB MEDICINE * (ABNORMAL) PROTIME INR (PT) (02/22/2023 3:59 AM CDT) Pathologist Signature Component Value Ref Test Method Analysis Performed A t Range Time Protime 18.0 (H) 9.5 - 02/22/2023 [facility] DEPT PAT H AND 14.2 SEC 6:04 AM LAB MEDICINE CDT INR 1.6 (H) 0.8 - 02/22/2023 [facility] DEPT PAT H AND 1.2 6:04 AM LAB MEDICINE CDT Anatomical Location / Laterality Collection Method / Volume Ernestina ection Time Received Time Specimen (Source) BLOOD / Unknown 02/22/2023 3:59 AM CDT 02/23/20 5:17 AM CDT Virgen Burkett Hill LABORATORY ORDERABLES SITE SPECIALIST-PHYSIOTHERAPY PRACTICE MANAGER City/State/ZIP Code Phone Number Performing [place] [address], [facility] DEPT PATH AND [address] LAB MEDICINE * (ABNORMAL) CBC AND DIFF CELLULAR THERAPEUTICS (02/22/2023 3:59 AM CDT) Pathologist Signature Component Value Ref Test Method Analysis Performed A t Range Time White Blood Cells 11.2 (H) 4.5 - 02/22/2023 [facility] DE PT PATH AND 11.0 6:11 AM LAB MEDICINE K/UL CDT RBC 2.57 (L) 4.4 - 02/22/2023 [facility] DEPT PAT H AND 5.5 M/UL 6:11 AM LAB MEDICINE CDT Hemoglobin 8.7 (L) 13.5 - 02/22/2023 [facility] DEPT PAT H AND 16.5 6:11 AM LAB MEDICINE GM/DL CDT Hematocrit 25.2 (L) 40 - 50 02/22/2023 [facility] DEPT PAT H AND % 6:11 AM LAB MEDICINE CDT MCV 97.9 80 - 100 02/22/2023 [facility] DEPT PAT H AND FL 6:11 AM LAB MEDICINE CDT MCH 33.7 26 - 34 02/22/2023 [facility] DEPT PAT H AND PG 6:11 AM LAB MEDICINE CDT MCHC 34.4 32.0 - 02/22/2023 [facility] DEPT PAT H AND 36.0 6:11 AM LAB MEDICINE G/DL CDT RDW 19.8 (H) 11 - 15 02/22/2023 [facility] DEPT PAT H AND % 6:11 AM LAB MEDICINE CDT Platelet Count 24 (LL) 150 - 02/22/2023 [facility] DEPT PATH AND 400 K/UL 6:11 AM LAB MEDICINE CDT Comment: CRITICAL VALUE CALLED TO AND READ BACK BY/TIME/TECH HALEY REILLY at 02/22/2023 06:11:18 by [id number] MPV 9.1 7 - 11 02/22/2023 [facility] DEPT PAT H AND FL 6:11 AM LAB MEDICINE CDT Segmented 7 (L) 41 - 77 02/22/2023 [facility] DEPT PAT H AND Neutrophils % 9:50 AM LAB MEDICINE CDT Lymphocytes 14 (L) 24 - 44 02/22/2023 [facility] DEPT PAT H AND % 9:50 AM LAB MEDICINE CDT Monocytes 18 (H) 4 - 12 % 02/22/2023 [facility] DEPT PAT H AND 9:50 AM LAB MEDICINE CDT Eosinophil 1 0 - 5 % 02/22/2023 [facility] DEPT PAT H AND 9:50 AM LAB MEDICINE CDT Blast 60 % 02/22/2023 [facility] DEPT PAT H AND 9:50 AM LAB MEDICINE CDT ANISO PRESENT 02/22/2023 [facility] DEPT PATH AND 9:50 AM LAB MEDICINE CDT POLY PRESENT 02/22/2023 [facility] DEPT PATH AND 9:50 AM LAB MEDICINE CDT Ovalocyte PRESENT 02/22/2023 [facility] DEPT PATH AND 9:50 AM LAB MEDICINE CDT Platelet Estimate MKD DEC 02/22/2023 [facility] DEPT P ATH AND 9:50 AM LAB MEDICINE CDT Absolute Neutrophil 0.78 (L) 1.8 - 02/22/2023 [facility] DEPT PATH AND Count Manual 7.0 K/UL 9:50 AM LAB MEDICINE CDT Anatomical Location / Laterality Collection Method / Volume Ernestina ection Time Received Time Specimen (Source) BLOOD / Unknown 02/22/2023 3:59 AM CDT 02/23/20 23 5:17 AM CDT [place] LABORATORY ORDERABLES SITE SPECIALIST-PHYSIOTHERAPY PRACTICE MANAGER City/State/ZIP Code Phone Number Performing Address [place] [address], [facility] DEPT PATH AND [address] [facility] MEDICINE * POSACONAZOLE LC-MS/MS (02/22/2023 3:59 AM CDT) Pathologist Signature Component Value Ref Test Method Analysis Performed A t Range Time Posaconazole, Serum 2.0 02/22/2023 [facility] 4:32 PM CDT Comment: Reference range: >0.7 Unit: mcg/mL . The range listed under reference range refers to the target therapeutic range. . *This test was developed and its performance characteristics determined by [employer] It has not been cleared or approved by the [place].S. Food and Drug Administration. Testing Performed At: [facility] [address] [place] [address], [address] [place] [address] [employer] Test Grader: Pankaj Melo, PhD [facility] ([facility]) [place] # [id number] FLAG Interpretation: A = Abnormal, H = High, L = Low Anatomical Location / Laterality Collection Method / Volume Ernestina ection Time Received Time Specimen (Source) BLOOD / Unknown 02/22/2023 3:59 AM CDT 02/23/20 5:17 AM CDT Fartun Mackenzie LABORATORY ORDERABLES SITE SPECIALIST-PHYSIOTHERAPY PRACTICE MANAGER City/State/ZIP Code Phone Number Performing Address Organization [facility] See results for address. * TRANSFUSE RBC'S (02/21/2023 4:22 PM CDT) Anatomical Location / Laterality Collection Method / Volume Ernestina ection Time Received Time Specimen (Source) BLOOD / Unknown Yevgeniy Madrid DO BLOOD BANK ORDERABLES City/State/ZIP Code Phone Number Performing [place] [address], [employer] DEPT PATH AND [address] [facility] LAB MEDICINE * TRANSFUSE RBC'S (02/21/2023 4:22 PM CDT) Anatomical Location / Laterality Collection Method / Volume Ernestina ection Time Received Time Specimen (Source) BLOOD / Unknown Yevgeniy Madrid DO BLOOD BANK ORDERABLES [facility]/ZIP Code Phone Number Performing [place] [address], [employer] DEPT PATH AND [address] [facility] LAB MEDICINE * BLOOD BANK SAMPLE HOLD (02/21/2023 5:18 AM CDT) Pathologist Signature Component Value Ref Test Method Analysis Performed A t Range Time BB Sample hold IN LAB 02/21/2023 [employer] DEPT PATH AND 9:27 AM LAB MEDICINE CDT Anatomical Location / Laterality Collection Method / Volume Ernestina ection Time Received Time Specimen (Source) 02/21/2023 5:18 AM CDT 02/22/20 5:35 AM CDT Yevgeniy Madrid DO BLOOD BANK ORDERABLES City/State/ZIP Code Phone Number Performing Address [place] [address], [facility] DEPT PATH AND [address] [facility]. LAB MEDICINE * TYPE & CROSSMATCH (02/21/2023 5:17 AM CDT) Pathologist Signature Component Value Ref Test Method Analysis Performed A t Range Time Units Ordered 1 02/21/2023 [facility] DEPT PATH AND 5:34 AM LAB MEDICINE CDT Crossmatch Expires 02/24/2023,2 02/21/2023 [facility] DEPT PATH AND 359 6:12 AM LAB MEDICINE CDT Record Check FOUND 02/21/2023 [facility] DEPT PATH AND 5:34 AM LAB MEDICINE CDT ABO/RH(D) A POS 02/21/2023 [facility] DEPT PATH AND 6:12 AM LAB MEDICINE CDT Antibody Screen NEG 02/21/2023 [facility] DEPT PAT H AND 6:12 AM LAB MEDICINE CDT Electronic YES 02/21/2023 [facility] DEPT PATH AND Crossmatch 6:12 AM LAB MEDICINE CDT Unit Number [id number] 02/21/2023 [facility] DEPT PATH AND 3 6:12 AM LAB MEDICINE CDT Blood Component Type RBC,ADSOL,LE 02/21/2023 [employer] DEP T PATH AND [facility] 6:12 AM LAB MEDICINE REDUCED,IRRA CDT DIATED Unit Division 00 02/21/2023 [employer] DEPT PATH AND 6:12 AM LAB MEDICINE CDT Status OF Unit TRANSFUSED 02/22/2023 [facility] DEPT PATH AND 3:17 AM LAB MEDICINE CDT ISSUE DATE TIME [id number] 02/22/2023 [facility] DEPT PAT H AND 3:17 AM LAB MEDICINE CDT PRODUCT CODE [id number] 02/22/2023 [facility] DEPT PATH AND 3:17 AM LAB MEDICINE CDT BLOOD TYPE A POS 02/22/2023 [facility] DEPT PATH AND 3:17 AM LAB MEDICINE CDT CODING STATUS 6200 02/22/2023 [facility] DEPT PATH AND 3:17 AM LAB MEDICINE CDT BLOOD EXPIRATION [id number] 02/22/2023 [facility] DEPT PA TH AND DATE 3:17 AM LAB MEDICINE CDT Transfusion Status OK TO 02/21/2023 [facility] DEPT PATH AND TRANSFUSE 6:12 AM LAB MEDICINE CDT Crossmatch Result COMPATIBLE,E 02/21/2023 [facility] DEPT P ATH AND LECTRONIC 6:12 AM LAB MEDICINE CDT Anatomical Location / Laterality Collection Method / Volume Ernestina ection Time Received Time Specimen (Source) BLOOD / Unknown 02/21/2023 5:17 AM CDT 02/22/20 5:34 AM CDT Yevgeniy Madrid DO BLOOD BANK ORDERABLES City/State/ZIP Code Phone Number Performing [place] [address], [facility] DEPT PATH AND [address] LAB MEDICINE * (ABNORMAL) URIC ACID (02/21/2023 3:05 AM CDT) Pathologist Signature Component Value Ref Test Method Analysis Performed A t Range Time Uric Acid 3.1 (L) 4.0 - 02/21/2023 [facility] DEPT PAT H AND 8.0 4:14 AM LAB MEDICINE MG/DL CDT Anatomical Location / Laterality Collection Method / Volume Ernestina ection Time Received Time Specimen (Source) BLOOD / Unknown 02/21/2023 3:05 AM CDT 02/22/20 3:33 AM CDT Virgen Hill LABORATORY ORDERABLES SITE SPECIALIST-PHYSIOTHERAPY PRACTICE MANAGER City/[facility]/ZIP Code Phone Number Performing Address Organization [address] [facility] DEPT PATH AND [address] [facility] LAB MEDICINE * FIBRINOGEN (02/21/2023 3:05 AM CDT) Pathologist Signature Component Value Ref Test Method Analysis Performed A t Range Time Fibrinogen 329 200 - 02/21/2023 [facility] DEPT PAT H AND 400 4:05 AM LAB MEDICINE MG/DL CDT Anatomical Location / Laterality Collection Method / Volume Ernestina ection Time Received Time Specimen (Source) BLOOD / Unknown 02/21/2023 3:05 AM CDT 02/22/20 3:33 AM CDT Virgen Burkett Hill LABORATORY ORDERABLES SITE SPECIALIST-PHYSIOTHERAPY PRACTICE MANAGER [facility]/ZIP Code Phone Number Performing [place] [address], [facility] DEPT PATH AND [address] LAB MEDICINE * (ABNORMAL) PHOSPHORUS CELLULAR THERAPEUTICS (02/21/2023 3:05 AM CDT) Pathologist Signature Component Value Ref Test Method Analysis Performed A t Range Time Phosphorus 1.9 (L) 2.0 - 02/21/2023 [facility] DEPT PAT H AND 4.5 4:14 AM LAB MEDICINE MG/DL CDT Anatomical Location / Laterality Collection Method / Volume Ernestina ection Time Received Time Specimen (Source) BLOOD / Unknown 02/21/2023 3:05 AM CDT 02/22/20 3:33 AM CDT Virgen Barbara Ozona LABORATORY ORDERABLES [facility]/ZIP Code Phone Number Performing Address Organization [address] [employer] DEPT PATH AND [address] [facility] LAB MEDICINE * MAGNESIUM CELLULAR THERAPEUTICS (02/21/2023 3:05 AM CDT) Pathologist Signature Component Value Ref Test Method Analysis Performed A t Range Time Magnesium 2.2 1.6 - 02/21/2023 [facility] DEPT PAT H AND 2.6 4:14 AM LAB MEDICINE mg/dL CDT Anatomical Location / Laterality Collection Method / Volume Ernestina ection Time Received Time Specimen (Source) BLOOD / Unknown 02/21/2023 3:05 AM CDT 02/22/20 3:33 AM CDT [facility] LABORATORY ORDERABLES [facility]/ZIP Code Phone Number Performing Address Organization [address] [employer] DEPT PATH AND [address] [facility] LAB MEDICINE * (ABNORMAL) COMPREHENSIVE METABOLIC PANEL CELLULAR THERAPEUTICS (02/21/2023 3:05 AM CDT) Pathologist Signature Component Value Ref Test Method Analysis Performed A t Range Time Sodium 134 (L) 137 - 02/21/2023 [facility] DEPT PAT H AND 147 4:14 AM LAB MEDICINE MMOL/L CDT Potassium 3.9 3.5 - 02/21/2023 [facility] DEPT PAT H AND 5.1 4:14 AM LAB MEDICINE MMOL/L CDT Chloride 103 98 - 110 02/21/2023 [facility] DEPT PAT H AND MMOL/L 4:14 AM LAB MEDICINE CDT Glucose 137 (H) 70 - 100 02/21/2023 [facility] DEPT PAT H AND MG/DL 4:14 AM LAB MEDICINE CDT Blood Urea Nitrogen 30 (H) 7 - 25 02/21/2023 [facility] DEPT PATH AND MG/DL 4:14 AM LAB MEDICINE CDT Creatinine 1.34 (H) 0.4 - 02/21/2023 [facility] DEPT PAT H AND 1.24 4:14 AM LAB MEDICINE MG/DL CDT Calcium 8.6 8.5 - 02/21/2023 [facility] DEPT PAT H AND 10.6 4:14 AM LAB MEDICINE MG/DL CDT Total Protein 5.5 (L) 6.0 - 02/21/2023 [facility] DEPT P ATH AND 8.0 G/DL 4:14 AM LAB MEDICINE CDT Total Bilirubin 1.4 (H) 0.3 - 02/21/2023 [facility] DEPT PATH AND 1.2 4:14 AM LAB MEDICINE MG/DL CDT Albumin 3.3 (L) 3.5 - 02/21/2023 [facility] DEPT PAT H AND 5.0 G/DL 4:14 AM LAB MEDICINE CDT Alk Phosphatase 51 25 - 110 02/21/2023 [facility] DEPT PATH AND U/L 4:14 AM LAB MEDICINE CDT AST (SGOT) 27 7 - 40 02/21/2023 [facility] DEPT PAT H AND U/L 4:14 AM LAB MEDICINE CDT CO2 23 21 - 30 02/21/2023 [facility] DEPT PAT H AND MMOL/L 4:14 AM LAB MEDICINE CDT ALT (SGPT) 15 7 - 56 02/21/2023 [facility] DEPT PAT H AND U/L 4:14 AM LAB MEDICINE CDT Anion Gap 8 3 - 12 02/21/2023 [facility] DEPT PAT H AND 4:14 AM LAB MEDICINE CDT eGFR 53 (L) >60 02/21/2023 [facility] DEPT PAT H AND mL/min 4:14 AM LAB MEDICINE CDT Comment: eGFR calculated using the CKD-EPIcr_R equation Anatomical Location / Laterality Collection Method / Volume Ernestina ection Time Received Time Specimen (Source) BLOOD / Unknown 02/21/2023 3:05 AM CDT 02/22/20 23 3:33 AM CDT Virgen Hill LABORATORY ORDERABLES SITE SPECIALIST-PHYSIOTHERAPY PRACTICE MANAGER City/State/ZIP Code Phone Number Performing [place] [address], [facility] DEPT PATH AND [facility] * PTT (APTT) (02/21/2023 3:05 AM CDT) Pathologist Signature Component Value Ref Test Method Analysis Performed A t Range Time APTT 34.4 24.0 - 02/21/2023 [facility] DEPT PAT H AND 36.5 SEC 4:05 AM LAB MEDICINE CDT Anatomical Location / Laterality Collection Method / Volume Ernestina ection Time Received Time Specimen (Source) BLOOD / Unknown 02/21/2023 3:05 AM CDT 02/22/20 3:[address] [facility] LABORATORY ORDERABLES [facility]/ZIP Code Phone Number Performing Address Organization [address] DEPT PATH AND [address] [place] [address] * (ABNORMAL) PROTIME INR (PT) (02/21/2023 3:05 AM CDT) Pathologist Signature Component Value Ref Test Method Analysis Performed A t Range Time Protime 19.4 (H) 9.5 - 02/21/2023 [facility] DEPT PAT H AND 14.2 SEC 4:05 AM LAB MEDICINE CDT INR 1.8 (H) 0.8 - 02/21/2023 [facility] DEPT PAT H AND 1.2 4:05 AM LAB MEDICINE CDT Anatomical Location / Laterality Collection Method / Volume Ernestina ection Time Received Time Specimen (Source) BLOOD / Unknown 02/21/2023 3:05 AM CDT 02/22/20 3:[address] [facility] LABORATORY ORDERABLES [facility]/ZIP Code Phone Number Performing Address Organization [address] DEPT PATH AND [address] [place] [address] * (ABNORMAL) CBC AND DIFF CELLULAR THERAPEUTICS (02/21/2023 3:05 AM CDT) Pathologist Signature Component Value Ref Test Method Analysis Performed A t Range Time White Blood Cells 13.3 (H) 4.5 - 02/21/2023 [facility] DE PT PATH AND 11.0 3:44 AM LAB MEDICINE K/UL CDT RBC 2.20 (L) 4.4 - 02/21/2023 [facility] DEPT PAT H AND 5.5 M/UL 3:44 AM LAB MEDICINE CDT Hemoglobin 7.6 (L) 13.5 - 02/21/2023 [facility] DEPT PAT H AND 16.5 3:44 AM LAB MEDICINE GM/DL CDT Hematocrit 22.4 (L) 40 - 50 02/21/2023 [facility] DEPT PAT H AND % 3:44 AM LAB MEDICINE CDT MCV 101.6 (H) 80 - 100 02/21/2023 [facility] DEPT PAT H AND FL 3:44 AM LAB MEDICINE CDT MCH 34.4 (H) 26 - 34 02/21/2023 [facility] DEPT PAT H AND PG 3:44 AM LAB MEDICINE CDT MCHC 33.9 32.0 - 02/21/2023 [facility] DEPT PAT H AND 36.0 3:44 AM LAB MEDICINE G/DL CDT RDW 19.1 (H) 11 - 15 02/21/2023 [facility] DEPT PAT H AND % 3:44 AM LAB MEDICINE CDT Platelet Count 30 (L) 150 - 02/21/2023 [facility] DEPT PATH AND 400 K/UL 3:44 AM LAB MEDICINE CDT MPV 10.3 7 - 11 02/21/2023 [facility] DEPT PAT H AND FL 3:44 AM LAB MEDICINE CDT Segmented 11 (L) 41 - 77 02/21/2023 [facility] DEPT PAT H AND Neutrophils % 5:42 AM LAB MEDICINE CDT Lymphocytes 21 (L) 24 - 44 02/21/2023 [facility] DEPT PAT H AND % 5:42 AM LAB MEDICINE CDT Monocytes 22 (H) 4 - 12 % 02/21/2023 [facility] DEPT PAT H AND 5:42 AM LAB MEDICINE CDT Metamyelocyte 1 % 02/21/2023 [facility] DEPT P ATH AND 5:42 AM LAB MEDICINE CDT Myelocyte 2 % 02/21/2023 [facility] DEPT PAT H AND 5:42 AM LAB MEDICINE CDT Blast 43 % 02/21/2023 [facility] DEPT PAT H AND 5:42 AM LAB MEDICINE CDT ANISO PRESENT 02/21/2023 [facility] DEPT PATH AND 5:42 AM LAB MEDICINE CDT Platelet Estimate MKD DEC 02/21/2023 [facility] DEPT P ATH AND 5:42 AM LAB MEDICINE CDT Absolute Neutrophil 1.46 (L) 1.8 - 02/21/2023 [facility] DEPT PATH AND Count Manual 7.0 K/UL 5:42 AM LAB MEDICINE CDT Anatomical Location / Laterality Collection Method / Volume Ernestina ection Time Received Time Specimen (Source) BLOOD / Unknown 02/21/2023 3:05 AM CDT 02/22/20 3:33 AM CDT Virgen Burkett [place] LABORATORY ORDERABLES [facility]/ZIP Code Phone Number Performing Address Organization [address] [place] DEPT PATH AND [address] [facility] LAB MEDICINE * (ABNORMAL) URIC ACID (02/20/2023 3:39 AM CDT) Pathologist Signature Component Value Ref Test Method Analysis Performed A t Range Time Uric Acid 3.2 (L) 4.0 - 02/20/2023 [facility] DEPT PAT H AND 8.0 4:39 AM LAB MEDICINE MG/DL CDT Anatomical Location / Laterality Collection Method / Volume Ernestina ection Time Received Time Specimen (Source) BLOOD / Unknown 02/20/2023 3:39 AM CDT 02/21/20 3:52 AM CDT Virgen Burkett [place] LABORATORY ORDERABLES [facility]/ZIP Code Phone Number Performing Address Organization [address] [employer] DEPT PATH AND [address] [facility] LAB MEDICINE * FIBRINOGEN (02/20/2023 3:39 AM CDT) Pathologist Signature Component Value Ref Test Method Analysis Performed A t Range Time Fibrinogen 355 200 - 02/20/2023 [facility] DEPT PAT H AND 400 4:33 AM LAB MEDICINE MG/DL CDT Anatomical Location / Laterality Collection Method / Volume Ernestina ection Time Received Time Specimen (Source) BLOOD / Unknown 02/20/2023 3:39 AM CDT 02/21/20 3:52 AM CDT Virgen Burkett [place] LABORATORY ORDERABLES SITE SPECIALISTEn[facility] Health/[facility]/ZIP Code Phone Number Performing [place] [address], [facility] DEPT PATH AND [address] [facility] LAB MEDICINE * PHOSPHORUS CELLULAR THERAPEUTICS (02/20/2023 3:39 AM CDT) Pathologist Signature Component Value Ref Test Method Analysis Performed A t Range Time Phosphorus 2.5 2.0 - 02/20/2023 [facility] DEPT PAT H AND 4.5 4:39 AM LAB MEDICINE MG/DL CDT Anatomical Location / Laterality Collection Method / Volume Ernestina ection Time Received Time Specimen (Source) BLOOD / Unknown 02/20/2023 3:39 AM CDT 02/21/20 3:52 AM CDT Virgen Hill LABORATORY ORDERABLES [facility]/ZIP Code Phone Number Performing Address Organization [address] [employer] DEPT PATH AND [address] LAB MEDICINE * MAGNESIUM CELLULAR THERAPEUTICS (02/20/2023 3:39 AM CDT) Pathologist Signature Component Value Ref Test Method Analysis Performed A t Range Time Magnesium 2.3 1.6 - 02/20/2023 [facility] DEPT PAT H AND 2.6 4:39 AM LAB MEDICINE mg/dL CDT Anatomical Location / Laterality Collection Method / Volume Ernestina ection Time Received Time Specimen (Source) BLOOD / Unknown 02/20/2023 3:39 AM CDT 02/21/20 3:52 AM CDT Virgen Hill LABORATORY ORDERABLES [facility]/ZIP Code Phone Number Performing Address Organization [address] [place] DEPT PATH AND [address] [facility] LAB MEDICINE * (ABNORMAL) COMPREHENSIVE METABOLIC PANEL CELLULAR THERAPEUTICS (02/20/2023 3:39 AM CDT) Pathologist Signature Component Value Ref Test Method Analysis Performed A t Range Time Sodium 134 (L) 137 - 02/20/2023 [facility] DEPT PAT H AND 147 4:39 AM LAB MEDICINE MMOL/L CDT Potassium 4.1 3.5 - 02/20/2023 [facility] DEPT PAT H AND 5.1 4:39 AM LAB MEDICINE MMOL/L CDT Chloride 105 98 - 110 02/20/2023 [facility] DEPT PAT H AND MMOL/L 4:39 AM LAB MEDICINE CDT Glucose 145 (H) 70 - 100 02/20/2023 [facility] DEPT PAT H AND MG/DL 4:39 AM LAB MEDICINE CDT Blood Urea Nitrogen 29 (H) 7 - 25 02/20/2023 [facility] DEPT PATH AND MG/DL 4:39 AM LAB MEDICINE CDT Creatinine 1.58 (H) 0.4 - 02/20/2023 [facility] DEPT PAT H AND 1.24 4:39 AM LAB MEDICINE MG/DL CDT Calcium 8.9 8.5 - 02/20/2023 [facility] DEPT PAT H AND 10.6 4:39 AM LAB MEDICINE MG/DL CDT Total Protein 5.8 (L) 6.0 - 02/20/2023 [facility] DEPT P ATH AND 8.0 G/DL 4:39 AM LAB MEDICINE CDT Total Bilirubin 1.4 (H) 0.3 - 02/20/2023 [facility] DEPT PATH AND 1.2 4:39 AM LAB MEDICINE MG/DL CDT Albumin 3.3 (L) 3.5 - 02/20/2023 [facility] DEPT PAT H AND 5.0 G/DL 4:39 AM LAB MEDICINE CDT Alk Phosphatase 43 25 - 110 02/20/2023 [facility] DEPT PATH AND U/L 4:39 AM LAB MEDICINE CDT AST (SGOT) 22 7 - 40 02/20/2023 [facility] DEPT PAT H AND U/L 4:39 AM LAB MEDICINE CDT CO2 21 21 - 30 02/20/2023 [facility] DEPT PAT H AND MMOL/L 4:39 AM LAB MEDICINE CDT ALT (SGPT) 11 7 - 56 02/20/2023 [facility] DEPT PAT H AND U/L 4:39 AM LAB MEDICINE CDT Anion Gap 8 3 - 12 02/20/2023 [facility] DEPT PAT H AND 4:39 AM LAB MEDICINE CDT eGFR 43 (L) >60 02/20/2023 [facility] DEPT PAT H AND mL/min 4:39 AM LAB MEDICINE CDT Comment: eGFR calculated using the CKD-EPIcr_R equation Anatomical Location / Laterality Collection Method / Volume Ernestina ection Time Received Time Specimen (Source) BLOOD / Unknown 02/20/2023 3:39 AM CDT 02/21/20 3:52 AM CDT Virgen Hill LABORATORY ORDERABLES SITE SPECIALIST-PHYSIOTHERAPY PRACTICE MANAGER City/State/ZIP Code Phone Number Performing [place] [address], [facility] DEPT PATH AND [address] LAB MEDICINE * (ABNORMAL) PTT (APTT) (02/20/2023 3:39 AM CDT) Pathologist Signature Component Value Ref Test Method Analysis Performed A t Range Time APTT 23.1 (L) 24.0 - 02/20/2023 [facility] DEPT PAT H AND 36.5 SEC 4:33 AM LAB MEDICINE CDT Anatomical Location / Laterality Collection Method / Volume Ernestina ection Time Received Time Specimen (Source) BLOOD / Unknown 02/20/2023 3:39 AM CDT 02/21/20 3:52 AM CDT Virgen Hill LABORATORY ORDERABLES [facility]/ZIP Code Phone Number Performing Address Organization [address] [employer] DEPT PATH AND [address] [facility] LAB MEDICINE * (ABNORMAL) PROTIME INR (PT) (02/20/2023 3:39 AM CDT) Pathologist Signature Component Value Ref Test Method Analysis Performed A t Range Time Protime 21.0 (H) 9.5 - 02/20/2023 [facility] DEPT PAT H AND 14.2 SEC 4:33 AM LAB MEDICINE CDT INR 1.9 (H) 0.8 - 02/20/2023 [facility] DEPT PAT H AND 1.2 4:33 AM LAB MEDICINE CDT Anatomical Location / Laterality Collection Method / Volume Ernestina ection Time Received Time Specimen (Source) BLOOD / Unknown 02/20/2023 3:39 AM CDT 02/21/20 3:52 AM CDT Virgen Hill LABORATORY ORDERABLES [facility]/ZIP Code Phone Number Performing Address Organization [address] [facility] DEPT PATH AND [facility] * (ABNORMAL) CBC AND DIFF CELLULAR THERAPEUTICS (02/20/2023 3:39 AM CDT) Pathologist Signature Component Value Ref Test Method Analysis Performed A t Range Time White Blood Cells 13.2 (H) 4.5 - 02/20/2023 [facility] DE PT PATH AND 11.0 4:06 AM LAB MEDICINE K/UL CDT RBC 2.39 (L) 4.4 - 02/20/2023 [facility] DEPT PAT H AND 5.5 M/UL 4:06 AM LAB MEDICINE CDT Hemoglobin 8.1 (L) 13.5 - 02/20/2023 [facility] DEPT PAT H AND 16.5 4:06 AM LAB MEDICINE GM/DL CDT Hematocrit 24.1 (L) 40 - 50 02/20/2023 [facility] DEPT PAT H AND % 4:06 AM LAB MEDICINE CDT MCV 101.2 (H) 80 - 100 02/20/2023 [facility] DEPT PAT H AND FL 4:06 AM LAB MEDICINE CDT MCH 34.0 26 - 34 02/20/2023 [facility] DEPT PAT H AND PG 4:06 AM LAB MEDICINE CDT MCHC 33.6 32.0 - 02/20/2023 [facility] DEPT PAT H AND 36.0 4:06 AM LAB MEDICINE G/DL CDT RDW 18.7 (H) 11 - 15 02/20/2023 [facility] DEPT PAT H AND % 4:06 AM LAB MEDICINE CDT Platelet Count 31 (L) 150 - 02/20/2023 [facility] DEPT PATH AND 400 K/UL 4:06 AM LAB MEDICINE CDT MPV 8.9 7 - 11 02/20/2023 [facility] DEPT PAT H AND FL 4:06 AM LAB MEDICINE CDT Nucleated RBCs 1 K/UL 02/20/2023 [facility] DEPT PATH AND 5:53 AM LAB MEDICINE CDT Segmented 13 (L) 41 - 77 02/20/2023 [facility] DEPT PAT H AND Neutrophils % 5:53 AM LAB MEDICINE CDT Lymphocytes 15 (L) 24 - 44 02/20/2023 [facility] DEPT PAT H AND % 5:53 AM LAB MEDICINE CDT Monocytes 28 (H) 4 - 12 % 02/20/2023 [facility] DEPT PAT H AND 5:53 AM LAB MEDICINE CDT Blast 44 % 02/20/2023 [facility] DEPT PAT H AND 5:53 AM LAB MEDICINE CDT ANISO PRESENT 02/20/2023 [facility] DEPT PATH AND 5:53 AM LAB MEDICINE CDT POLY PRESENT 02/20/2023 [facility] DEPT PATH AND 5:53 AM LAB MEDICINE CDT Platelet Estimate MKD DEC 02/20/2023 [facility] DEPT P ATH AND 5:53 AM LAB MEDICINE CDT Absolute Neutrophil 1.72 (L) 1.8 - 02/20/2023 [facility] DEPT PATH AND Count Manual 7.0 K/UL 5:53 AM LAB MEDICINE CDT Anatomical Location / Laterality Collection Method / Volume Ernestina ection Time Received Time Specimen (Source) BLOOD / Unknown 02/20/2023 3:39 AM CDT 02/21/20 3:52 AM CDT Virgen Barbara Hill LABORATORY ORDERABLES SITE SPECIALIST-PHYSIOTHERAPY PRACTICE MANAGER City/State/ZIP Code Phone Number Performing [place] [address], [facility] DEPT PATH AND [address] [...] 0 Min 14.3 (H) 9.5 - 02/20/2023 [facility] DEPT PA [...] 3:52 AM CDT Fartun Mackenzie LABORATORY ORDERABLES SITE SPECIALIST-PHYSIOTHERAPY PRACTICE MANAGER [facility]/State/ZIP Code Phone Number Performing [place] [address], [facility] DEPT PATH AND [address] [...] Bolden M.D. on 02/19/2023 12:17 PM. Fartun Burkett Gurdeep [place] ORDERABLES SITE SPECIALIST-PHYSIOTHERAPY PRACTICE MANAGER * UREA NITROGEN-URINE RANDOM (02/19/2023 11:33 AM CDT) Pathologist Signature Component Value Ref Test Method Analysis Performed A t Range Time Urea Nitrogen 970 MG/DL 02/19/2023 [facility] DEPT P ATH AND 12:22 PM LAB MEDICINE CDT Anatomical Location / Laterality Collection Method / Volume Ernestina ection Time Received Time Specimen (Source) URINE SPECIMEN / Unknown 02/19/2023 11:33 AM CDT 02/19/2023 11:45 AM CDT Urine Fartun Mackenzie URINE ORDERABLES SITE SPECIALIST-PHYSIOTHERAPY PRACTICE MANAGER City/State/ZIP Code Phone Number Performing Address Organization [address] [employer] DEPT PATH AND [address] LAB MEDICINE * CREATININE-URINE RANDOM (02/19/2023 11:33 AM CDT) Pathologist Signature Component Value Ref Test Method Analysis Performed A t Range Time Creatinine, Random 94 MG/DL 02/19/2023 [facility] EPT PATH AND 12:22 PM LAB MEDICINE CDT Anatomical Location / Laterality Collection Method / Volume Ernestina ection Time Received Time Specimen (Source) URINE SPECIMEN / Unknown 02/19/2023 11:33 AM CDT 02/19/2023 11:45 AM CDT Urine Fartun Mackenzie URINE ORDERABLES SITE SPECIALIST-PHYSIOTHERAPY PRACTICE MANAGER [facility]/ZIP Code Phone Number Performing [place] [address], [employer] DEPT PATH AND [address] LAB MEDICINE * SODIUM-URINE RANDOM (02/19/2023 11:33 AM CDT) Pathologist Signature Component Value Ref Test Method Analysis Performed A t Range Time Sodium, Random 16 MMOL/L 02/19/2023 [facility] DEPT PATH AND 12:22 PM LAB MEDICINE CDT Anatomical Location / Laterality Collection Method / Volume Ernestina ection Time Received Time Specimen (Source) URINE SPECIMEN / Unknown 02/19/2023 11:33 AM CDT 02/19/2023 11:45 AM CDT Urine Fartun Mackenzie URINE ORDERABLES SITE SPECIALIST-PHYSIOTHERAPY PRACTICE MANAGER City/State/ZIP Code Phone Number Performing Address [place] [address], [facility] DEPT PATH AND [address] [facility] LAB MEDICINE * (ABNORMAL) URINALYSIS DIPSTICK (02/19/2023 11:33 AM CDT) Pathologist Signature Component Value Ref Test Method Analysis Performed A t Range Time Color,UA YELLOW 02/19/2023 [facility] DEPT PATH AND 11:52 AM LAB MEDICINE CDT Turbidity,UA CLEAR CLEAR-CL 02/19/2023 [facility] DEPT PA TH AND EAR 11:52 AM LAB MEDICINE CDT Specific 1.018 1.005 - 02/19/2023 [facility] DEPT PAT H AND [place]-Urine 1.030 11:52 AM LAB MEDICINE CDT Comment: [...] CDT Urine Ascorbic Acid, NEG NEG-NEG 02/19/2023 [facility] DEPT PATH AND UA 11:52 AM LAB MEDICINE CDT Anatomical Location / Laterality Collection Method / Volume Ernestina ection Time Received Time Specimen (Source) URINE SPECIMEN / Unknown 02/19/2023 11:33 AM CDT 02/19/2023 11:44 AM CDT Urine Fartun Barbara Gurdeep URINE ORDERABLES SITE SPECIALIST- City/State/ZIP Code Phone Number Performing [place] [address], [facility] DEPT PATH AND [address] [facility] LAB MEDICINE * (ABNORMAL) POC GLUCOSE (02/19/2023 10:03 AM CDT) Pathologist Signature Component Value Ref Test Method Analysis Performed A t Range Time Glucose, POC 163 (H) 70 - 100 [facility]05 AM [place] A CDT Anatomical Location / Laterality Collection Method / Volume Ernestina ection Time Received Time Specimen (Source) 02/19/2023 10:03 AM CDT 02/20/20 10:05 AM CDT Yevgeniy Madrid DO OTHER LABORATORY City/State/ZIP Code Phone Number Performing Address Organization [address] [facility] * (ABNORMAL) URIC ACID (02/19/2023 4:40 AM CDT) Pathologist Signature Component Value Ref Test Method Analysis Performed A t Range Time Uric Acid 3.5 (L) 4.0 - 02/19/2023 [facility] DEPT PAT H AND 8.0 5:29 AM LAB MEDICINE MG/DL CDT Anatomical Location / Laterality Collection Method / Volume Ernestina ection Time Received Time Specimen (Source) BLOOD / Unknown 02/19/2023 4:40 AM CDT 02/20/20 4:49 AM CDT Virgen Hill LABORATORY ORDERABLES SITE SPECIALIST-PHYSIOTHERAPY PRACTICE MANAGER City/State/ZIP Code Phone Number Performing Address [place] [address], [facility] DEPT PATH AND [address] [facility] LAB MEDICINE * FIBRINOGEN (02/19/2023 4:40 AM CDT) Pathologist Signature Component Value Ref Test Method Analysis Performed A t Range Time Fibrinogen 324 200 - 02/19/2023 [facility] DEPT PAT H AND 400 5:18 AM LAB MEDICINE MG/DL CDT Anatomical Location / Laterality Collection Method / Volume Ernestina ection Time Received Time Specimen (Source) BLOOD / Unknown 02/19/2023 4:40 AM CDT 02/20/20 4:49 AM CDT Virgen Hill LABORATORY ORDERABLES SITE SPECIALIST-PHYSIOTHERAPY PRACTICE MANAGER City/State/ZIP Code Phone Number Performing [place] [address], [facility] [employer] DEPT PATH AND [address] [facility] LAB MEDICINE * PHOSPHORUS CELLULAR THERAPEUTICS (02/19/2023 4:40 AM CDT) Pathologist Signature Component Value Ref Test Method Analysis Performed A t Range Time Phosphorus 3.0 2.0 - 02/19/2023 [facility] DEPT PAT H AND 4.5 5:29 AM LAB MEDICINE MG/DL CDT Anatomical Location / Laterality Collection Method / Volume Ernestina ection Time Received Time Specimen (Source) BLOOD / Unknown 02/19/2023 4:40 AM CDT 02/20/20 4:49 AM CDT Virgen Burkett [place] LABORATORY ORDERABLES SITE SPECIALIST-PHYSIOTHERAPY PRACTICE MANAGER [facility]/State/ZIP Code Phone Number Performing Address Organization [address] [employer] DEPT PATH AND [address] [facility] LAB MEDICINE * MAGNESIUM CELLULAR THERAPEUTICS (02/19/2023 4:40 AM CDT) Pathologist Signature Component Value Ref Test Method Analysis Performed A t Range Time Magnesium 2.5 1.6 - 02/19/2023 [facility] DEPT PAT H AND 2.6 5:29 AM LAB MEDICINE mg/dL CDT Anatomical Location / Laterality Collection Method / Volume Ernestina ection Time Received Time Specimen (Source) BLOOD / Unknown 02/19/2023 4:40 AM CDT 02/20/20 4:49 AM CDT Virgen Burkett [place] LABORATORY ORDERABLES SITE SPECIALIST-PHYSIOTHERAPY PRACTICE MANAGER [facility]/ZIP Code Phone Number Performing [place] [address], [facility] [employer] DEPT PATH AND [address] [facility] LAB MEDICINE * (ABNORMAL) COMPREHENSIVE METABOLIC PANEL CELLULAR THERAPEUTICS (02/19/2023 4:40 AM CDT) Pathologist Signature Component Value Ref Test Method Analysis Performed A t Range Time Sodium 134 (L) 137 - 02/19/2023 [facility] DEPT PAT H AND 147 5:29 AM LAB MEDICINE MMOL/L CDT Potassium 4.5 3.5 - 02/19/2023 [facility] DEPT PAT H AND 5.1 5:29 AM LAB MEDICINE MMOL/L CDT Chloride 104 98 - 110 02/19/2023 [facility] DEPT PAT H AND MMOL/L 5:29 AM LAB MEDICINE CDT Glucose 131 (H) 70 - 100 02/19/2023 [facility] DEPT PAT H AND MG/DL 5:29 AM LAB MEDICINE CDT Blood Urea Nitrogen 31 (H) 7 - 25 02/19/2023 [facility] DEPT PATH AND MG/DL 5:29 AM LAB MEDICINE CDT Creatinine 1.62 (H) 0.4 - 02/19/2023 [facility] DEPT PAT H AND 1.24 5:29 AM LAB MEDICINE MG/DL CDT Calcium 8.8 8.5 - 02/19/2023 [facility] DEPT PAT H AND 10.6 5:29 AM LAB MEDICINE MG/DL CDT Total Protein 5.7 (L) 6.0 - 02/19/2023 [facility] DEPT P ATH AND 8.0 G/DL 5:29 AM LAB MEDICINE CDT Total Bilirubin 1.4 (H) 0.3 - 02/19/2023 [facility] DEPT PATH AND 1.2 5:29 AM LAB MEDICINE MG/DL CDT Albumin 3.4 (L) 3.5 - 02/19/2023 [facility] DEPT PAT H AND 5.0 G/DL 5:29 AM LAB MEDICINE CDT Alk Phosphatase 41 25 - 110 02/19/2023 [facility] DEPT PATH AND U/L 5:29 AM LAB MEDICINE CDT AST (SGOT) 23 7 - 40 02/19/2023 [facility] DEPT PAT H AND U/L 5:29 AM LAB MEDICINE CDT CO2 22 21 - 30 02/19/2023 [facility] DEPT PAT H AND MMOL/L 5:29 AM LAB MEDICINE CDT ALT (SGPT) 10 7 - 56 02/19/2023 [facility] DEPT PAT H AND U/L 5:29 AM LAB MEDICINE CDT Anion Gap 8 3 - 12 02/19/2023 [facility] DEPT PAT H AND 5:29 AM LAB MEDICINE CDT eGFR 42 (L) >60 02/19/2023 [facility] DEPT PAT H AND mL/min 5:29 AM LAB MEDICINE CDT Comment: eGFR calculated using the CKD-EPIcr_R equation Anatomical Location / Laterality Collection Method / Volume Ernestina ection Time Received Time Specimen (Source) BLOOD / Unknown 02/19/2023 4:40 AM CDT 02/20/20 4:49 AM CDT Virgen Burkett [place] LABORATORY ORDERABLES [facility]/ZIP Code Phone Number Performing Address Organization [address] [employer] DEPT PATH AND [employer] [facility] LAB MEDICINE * PTT (APTT) (02/19/2023 4:40 AM CDT) Pathologist Signature Component Value Ref Test Method Analysis Performed A t Range Time APTT 34.7 24.0 - 02/19/2023 [facility] DEPT PAT H AND 36.5 SEC 5:18 AM LAB MEDICINE CDT Anatomical Location / Laterality Collection Method / Volume Ernestina ection Time Received Time Specimen (Source) BLOOD / Unknown 02/19/2023 4:40 AM CDT 02/20/20 4:49 AM CDT Virgen Burkett [place] LABORATORY ORDERABLES [facility]/ZIP Code Phone Number Performing Address Organization [address] [employer] DEPT PATH AND [employer] [facility] LAB MEDICINE * (ABNORMAL) PROTIME INR (PT) (02/19/2023 4:40 AM CDT) Pathologist Signature Component Value Ref Test Method Analysis Performed A t Range Time Protime 21.6 (H) 9.5 - 02/19/2023 [facility] DEPT PAT H AND 14.2 SEC 5:18 AM LAB MEDICINE CDT INR 2.0 (H) 0.8 - 02/19/2023 [facility] DEPT PAT H AND 1.2 5:18 AM LAB MEDICINE CDT Anatomical Location / Laterality Collection Method / Volume Ernestina ection Time Received Time Specimen (Source) BLOOD / Unknown 02/19/2023 4:40 AM CDT 02/20/20 4:49 AM CDT Virgen Barbara [place] LABORATORY ORDERABLES [facility]/ZIP Code Phone Number Performing Address Organization [address] [employer] DEPT PATH AND [employer] [facility] LAB MEDICINE * (ABNORMAL) CBC AND DIFF CELLULAR THERAPEUTICS (02/19/2023 4:40 AM CDT) Pathologist Signature Component Value Ref Test Method Analysis Performed A t Range Time White Blood Cells 13.5 (H) 4.5 - 02/19/2023 [facility] PT PATH AND 11.0 5:02 AM LAB MEDICINE K/UL CDT RBC 2.40 (L) 4.4 - 02/19/2023 [facility] DEPT PAT H AND 5.5 M/UL 5:02 AM LAB MEDICINE CDT Hemoglobin 8.2 (L) 13.5 - 02/19/2023 [facility] DEPT PAT H AND 16.5 5:02 AM LAB MEDICINE GM/DL CDT Hematocrit 24.0 (L) 40 - 50 02/19/2023 [facility] DEPT PAT H AND % 5:02 AM LAB MEDICINE CDT MCV 100.0 80 - 100 02/19/2023 [facility] DEPT PAT H AND FL 5:02 AM LAB MEDICINE CDT MCH 34.0 26 - 34 02/19/2023 [facility] DEPT PAT H AND PG 5:02 AM LAB MEDICINE CDT MCHC 34.0 32.0 - 02/19/2023 [facility] DEPT PAT H AND 36.0 5:02 AM LAB MEDICINE G/DL CDT RDW 19.2 (H) 11 - 15 02/19/2023 [facility] DEPT PAT H AND % 5:02 AM LAB MEDICINE CDT Platelet Count 36 (L) 150 - 02/19/2023 [facility] DEPT PATH AND 400 K/UL 5:02 AM LAB MEDICINE CDT MPV 10.2 7 - 11 02/19/2023 [facility] DEPT PAT H AND FL 5:02 AM LAB MEDICINE CDT Segmented 11 (L) 41 - 77 02/19/2023 [facility] DEPT PAT H AND Neutrophils % 7:14 AM LAB MEDICINE CDT Lymphocytes 10 (L) 24 - 44 02/19/2023 [facility] DEPT PAT H AND % 7:14 AM LAB MEDICINE CDT Monocytes 8 4 - 12 % 02/19/2023 [facility] DEPT PAT H AND 7:14 AM LAB MEDICINE CDT Blast 71 % 02/19/2023 [facility] DEPT PAT H AND 7:14 AM LAB MEDICINE CDT ANISO PRESENT 02/19/2023 [facility] DEPT PATH AND 7:14 AM LAB MEDICINE CDT POIK PRESENT 02/19/2023 [facility] DEPT PATH AND 7:14 AM LAB MEDICINE CDT POLY PRESENT 02/19/2023 [facility] DEPT PATH AND 7:14 AM LAB MEDICINE CDT Platelet Estimate MKD DEC 02/19/2023 [facility] DEPT P ATH AND 7:14 AM LAB MEDICINE CDT Absolute Neutrophil 1.49 (L) 1.8 - [facility] Count Manual 7.0 K/UL 7:14 AM LAB MEDICINE CDT Anatomical Location / Laterality Collection Method / Volume Ernestina ection Time Received Time Specimen (Source) BLOOD / Unknown 02/19/2023 4:40 AM CDT 02/20/20 4:49 AM CDT Virgen Hill LABORATORY ORDERABLES SITE SPECIALIST-PHYSIOTHERAPY PRACTICE MANAGER City/State/ZIP Code Phone Number Performing [place] [address], [facility] PATH AND [address] [facility] LAB MEDICINE * (ABNORMAL) POC GLUCOSE (02/18/2023 11:20 PM CDT) Pathologist Signature Component Value Ref Test Method Analysis Performed A t Range Time Glucose, POC 143 (H) 70 - 100 02/18/2023 [facility] GE MG/DL 11:21 PM [place] A CDT Anatomical Location / Laterality Collection Method / Volume Ernestina ection Time Received Time Specimen (Source) 02/18/2023 11:20 PM CDT 02/19/20 11:21 PM CDT Yevgeniy Madrid DO OTHER LABORATORY City/State/ZIP Code Phone Number Performing Address Organization [place], [place] [id number] [place] [address] [address] [facility] A * CT ABD/PELV WO CONTRAST (02/18/2023 [...] 02/18/2023 2:[address] ORDERABLES SITE SPECIALIST-PHYSIOTHERAPY PRACTICE MANAGER * TRANSFUSE RBC'S (02/18/2023 12:27 PM CDT) Anatomical Location / Laterality Collection Method / Volume Ernestina ection Time Received Time Specimen (Source) BLOOD / Unknown Yevgeniy Madrid DO BLOOD BANK ORDERABLES City/[facility]/ZIP Code Phone Number Performing Address Organization [address] [employer] DEPT PATH AND [facility] * TRANSFUSE RBC'S (02/18/2023 12:27 PM CDT) Anatomical Location / Laterality Collection Method / Volume Ernestina ection Time Received Time Specimen (Source) BLOOD / Unknown Yevgeniy Madrid DO BLOOD BANK ORDERABLES City/State/ZIP Code Phone Number Performing [place] [address], [employer] DEPT PATH AND [facility] * BLOOD TYPE CONFIRMATION - ORDER ONLY IF REQUESTED BY LAB (02/18/2023 5:15 AM CDT) Pathologist Signature Component Value Ref Test Method Analysis Performed A t Range Time ABO/RH(D) A POS 02/18/2023 [facility] DEPT PATH AND 6:44 AM LAB MEDICINE CDT Anatomical Location / Laterality Collection Method / Volume Ernestina ection Time Received Time Specimen (Source) 02/18/2023 5:15 AM CDT 02/19/20 5:28 AM CDT Hill Alejandre BLOOD BANK ORDERABLES City/State/ZIP Code Phone Number Performing [place] [address], [employer] DEPT PATH AND [employer] [facility] LAB MEDICINE * TYPE & CROSSMATCH (02/18/2023 4:52 AM CDT) Pathologist Signature Component Value Ref Test Method Analysis Performed A t Range Time Units Ordered 1 02/18/2023 [facility] DEPT PATH AND 5:13 AM LAB MEDICINE CDT Crossmatch Expires 02/21/2023,2 02/18/2023 [facility] DEPT PATH AND 359 6:16 AM LAB MEDICINE CDT Record Check 2ND TYPE 02/18/2023 [facility] DEPT PATH AND REQUIRED 5:13 AM LAB MEDICINE CDT ABO/RH(D) A POS 02/18/2023 [facility] DEPT PATH AND 6:16 AM LAB MEDICINE CDT Antibody Screen NEG 02/18/2023 [facility] DEPT PAT H AND 6:16 AM LAB MEDICINE CDT Electronic YES 02/18/2023 [facility] DEPT PATH AND Crossmatch 8:43 AM LAB MEDICINE CDT Unit Number [id number] 02/18/2023 [facility] DEPT PATH AND 8 8:43 AM LAB MEDICINE CDT Blood Component Type RBC,ADSOL,LE 02/18/2023 [facility] DEP T PATH AND UKO 8:43 AM LAB MEDICINE REDUCED,IRRA CDT DIATED Unit Division 00 02/18/2023 [facility] DEPT PATH AND 8:43 AM LAB MEDICINE CDT Status OF Unit TRANSFUSED 02/19/2023 [facility] DEPT PATH AND 2:33 AM LAB MEDICINE CDT ISSUE DATE TIME [id number] 02/19/2023 [facility] DEPT PAT H AND 2:33 AM LAB MEDICINE CDT PRODUCT CODE [id number] 02/19/2023 [facility] DEPT PATH AND 2:33 AM LAB MEDICINE CDT BLOOD TYPE A POS 02/19/2023 [facility] DEPT PATH AND 2:33 AM LAB MEDICINE CDT CODING STATUS 6200 02/19/2023 [facility] DEPT PATH AND 2:33 AM LAB MEDICINE CDT BLOOD EXPIRATION [id number] 02/19/2023 [facility] DEPT PA TH AND DATE 2:33 AM LAB MEDICINE CDT Transfusion Status OK TO 02/18/2023 [facility] DEPT PATH AND TRANSFUSE 8:43 AM LAB MEDICINE CDT Crossmatch Result COMPATIBLE,E 02/18/2023 [facility] DEPT P ATH AND LECTRONIC 8:43 AM LAB MEDICINE CDT Anatomical Location / Laterality Collection Method / Volume Ernestina ection Time Received Time Specimen (Source) BLOOD / Unknown 02/18/2023 4:52 AM CDT 02/19/20 5:13 AM CDT Yevgeniy Madrid DO BLOOD BANK ORDERABLES City/State/ZIP Code Phone Number Performing [place] [address], [employer] DEPT PATH AND [address] [facility] LAB MEDICINE * (ABNORMAL) URIC ACID (02/18/2023 3:36 AM CDT) Pathologist Signature Component Value Ref Test Method Analysis Performed A t Range Time Uric Acid 3.8 (L) 4.0 - 02/18/2023 [facility] DEPT PAT H AND 8.0 4:38 AM LAB MEDICINE MG/DL CDT Anatomical Location / Laterality Collection Method / Volume Ernestina ection Time Received Time Specimen (Source) BLOOD / Unknown 02/18/2023 3:36 AM CDT 02/19/20 3:[address] [facility] LABORATORY ORDERABLES SITE SPECIALIST-[facility]/ZIP Code Phone Number Performing Address Organization [address] [employer] DEPT PATH AND [address] [facility] LAB MEDICINE * FIBRINOGEN (02/18/2023 3:36 AM CDT) Pathologist Signature Component Value Ref Test Method Analysis Performed A t Range Time Fibrinogen 265 200 - 02/18/2023 [facility] DEPT PAT H AND 400 4:33 AM LAB MEDICINE MG/DL CDT Anatomical Location / Laterality Collection Method / Volume Ernestina ection Time Received Time Specimen (Source) BLOOD / Unknown 02/18/2023 3:36 AM CDT 02/19/20 3:55 AM CDT Virgen [facility] LABORATORY ORDERABLES SITE SPECIALIST-[facility]/ZIP Code Phone Number Performing Address Organization [address] [employer] DEPT PATH AND [address] [facility] LAB MEDICINE * PHOSPHORUS CELLULAR THERAPEUTICS (02/18/2023 3:36 AM CDT) Pathologist Signature Component Value Ref Test Method Analysis Performed A t Range Time Phosphorus 2.5 2.0 - 02/18/2023 [facility] DEPT PAT H AND 4.5 4:38 AM LAB MEDICINE MG/DL CDT Anatomical Location / Laterality Collection Method / Volume Ernestina ection Time Received Time Specimen (Source) BLOOD / Unknown 02/18/2023 3:36 AM CDT 02/19/20 3:55 AM CDT Virgen Burkett Hill LABORATORY ORDERABLES SITE SPECIALIST-PHYSIOTHERAPY PRACTICE MANAGER City/State/ZIP Code Phone Number Performing [place] [address], [facility] DEPT PATH AND [address] [facility]. LAB MEDICINE * MAGNESIUM CELLULAR THERAPEUTICS (02/18/2023 3:36 AM CDT) Pathologist Signature Component Value Ref Test Method Analysis Performed A t Range Time Magnesium 1.7 1.6 - 02/18/2023 [facility] DEPT PAT H AND 2.6 4:38 AM LAB MEDICINE mg/dL CDT Anatomical Location / Laterality Collection Method / Volume Ernestina ection Time Received Time Specimen (Source) BLOOD / Unknown 02/18/2023 3:36 AM CDT 02/19/20 3:55 AM CDT Virgen Hill LABORATORY ORDERABLES SITE SPECIALIST-PHYSIOTHERAPY PRACTICE MANAGER [facility]/ZIP Code Phone Number Performing [place] [address], [employer] DEPT PATH AND [address] [facility] LAB MEDICINE * (ABNORMAL) COMPREHENSIVE METABOLIC PANEL CELLULAR THERAPEUTICS (02/18/2023 3:36 AM CDT) Pathologist Signature Component Value Ref Test Method Analysis Performed A t Range Time Sodium 135 (L) 137 - 02/18/2023 [facility] DEPT PAT H AND 147 4:38 AM LAB MEDICINE MMOL/L CDT Potassium 4.6 3.5 - 02/18/2023 [facility] DEPT PAT H AND 5.1 4:38 AM LAB MEDICINE MMOL/L CDT Chloride 104 98 - 110 02/18/2023 [facility] DEPT PAT H AND MMOL/L 4:38 AM LAB MEDICINE CDT Glucose 149 (H) 70 - 100 02/18/2023 [facility] DEPT PAT H AND MG/DL 4:38 AM LAB MEDICINE CDT Blood Urea Nitrogen 21 7 - 25 02/18/2023 [facility] DEPT PATH AND MG/DL 4:38 AM LAB MEDICINE CDT Creatinine 1.44 (H) 0.4 - 02/18/2023 [facility] DEPT PAT H AND 1.24 4:38 AM LAB MEDICINE MG/DL CDT Calcium 8.5 8.5 - 02/18/2023 [facility] DEPT PAT H AND 10.6 4:38 AM LAB MEDICINE MG/DL CDT Total Protein 5.6 (L) 6.0 - 02/18/2023 [facility] DEPT P ATH AND 8.0 G/DL 4:38 AM LAB MEDICINE CDT Total Bilirubin 1.2 0.3 - 02/18/2023 [facility] DEPT PATH AND 1.2 4:38 AM LAB MEDICINE MG/DL CDT Albumin 3.4 (L) 3.5 - 02/18/2023 [facility] DEPT PAT H AND 5.0 G/DL 4:38 AM LAB MEDICINE CDT Alk Phosphatase 43 25 - 110 02/18/2023 [facility] DEPT PATH AND U/L 4:38 AM LAB MEDICINE CDT AST (SGOT) 23 7 - 40 02/18/2023 [facility] DEPT PAT H AND U/L 4:38 AM LAB MEDICINE CDT CO2 23 21 - 30 02/18/2023 [facility] DEPT PAT H AND MMOL/L 4:38 AM LAB MEDICINE CDT ALT (SGPT) 8 7 - 56 02/18/2023 [facility] DEPT PAT H AND U/L 4:38 AM LAB MEDICINE CDT Anion Gap 8 3 - 12 02/18/2023 [facility] DEPT PAT H AND 4:38 AM LAB MEDICINE CDT eGFR 49 (L) >60 02/18/2023 [facility] DEPT PAT H AND mL/min 4:38 AM LAB MEDICINE CDT Comment: eGFR calculated using the CKD-EPIcr_R equation Anatomical Location / Laterality Collection Method / Volume Ernestina ection Time Received Time Specimen (Source) BLOOD / Unknown 02/18/2023 3:36 AM CDT 02/19/20 23 3:55 AM CDT Virgen Hill LABORATORY ORDERABLES SITE SPECIALIST-PHYSIOTHERAPY PRACTICE MANAGER City/State/ZIP Code Phone Number Performing [place] [address], [facility] DEPT PATH AND [address] [facility]. LAB MEDICINE * PTT (APTT) (02/18/2023 3:36 AM CDT) Pathologist Signature Component Value Ref Test Method Analysis Performed A t Range Time APTT 33.2 24.0 - 02/18/2023 [facility] DEPT PAT H AND 36.5 SEC 4:33 AM LAB MEDICINE CDT Anatomical Location / Laterality Collection Method / Volume Ernestina ection Time Received Time Specimen (Source) BLOOD / Unknown 02/18/2023 3:36 AM CDT 02/19/20 3:55 AM CDT Virgen Barbara [place] LABORATORY ORDERABLES [facility]/ZIP Code Phone Number Performing Address Organization [address] [facility] DEPT PATH AND [address] [facility] LAB MEDICINE * (ABNORMAL) PROTIME INR (PT) (02/18/2023 3:36 AM CDT) Pathologist Signature Component Value Ref Test Method Analysis Performed A t Range Time Protime 21.8 (H) 9.5 - 02/18/2023 [facility] DEPT PAT H AND 14.2 SEC 4:33 AM LAB MEDICINE CDT INR 2.0 (H) 0.8 - 02/18/2023 [facility] DEPT PAT H AND 1.2 4:33 AM LAB MEDICINE CDT Anatomical Location / Laterality Collection Method / Volume Ernestina ection Time Received Time Specimen (Source) BLOOD / Unknown 02/18/2023 3:36 AM CDT 02/19/20 3:55 AM CDT Virgen [facility] LABORATORY ORDERABLES [facility]/ZIP Code Phone Number Performing Address Organization [address] [employer] DEPT PATH AND [address] [facility] LAB MEDICINE * (ABNORMAL) CBC AND DIFF CELLULAR THERAPEUTICS (02/18/2023 3:36 AM CDT) Pathologist Signature Component Value Ref Test Method Analysis Performed A t Range Time White Blood Cells 14.6 (H) 4.5 - 02/18/2023 [facility] DE PT PATH AND 11.0 4:05 AM LAB MEDICINE K/UL CDT RBC 2.11 (L) 4.4 - 02/18/2023 [facility] DEPT PAT H AND 5.5 M/UL 4:05 AM LAB MEDICINE CDT Hemoglobin 7.4 (L) 13.5 - 02/18/2023 [facility] DEPT PAT H AND 16.5 4:05 AM LAB MEDICINE GM/DL CDT Hematocrit 22.0 (L) 40 - 50 02/18/2023 [facility] DEPT PAT H AND % 4:05 AM LAB MEDICINE CDT MCV 104.0 (H) 80 - 100 02/18/2023 [facility] DEPT PAT H AND FL 4:05 AM LAB MEDICINE CDT MCH 34.9 (H) 26 - 34 02/18/2023 [facility] DEPT PAT H AND PG 4:05 AM LAB MEDICINE CDT MCHC 33.6 32.0 - 02/18/2023 [facility] DEPT PAT H AND 36.0 4:05 AM LAB MEDICINE G/DL CDT RDW 17.7 (H) 11 - 15 02/18/2023 [facility] DEPT PAT H AND % 4:05 AM LAB MEDICINE CDT Platelet Count 42 (L) 150 - 02/18/2023 [facility] DEPT PATH AND 400 K/UL 4:05 AM LAB MEDICINE CDT MPV 10.4 7 - 11 02/18/2023 [facility] DEPT PAT H AND FL 4:05 AM LAB MEDICINE CDT Segmented 12 (L) 41 - 77 02/18/2023 [facility] DEPT PAT H AND Neutrophils % 5:19 AM LAB MEDICINE CDT Lymphocytes 11 (L) 24 - 44 02/18/2023 [facility] DEPT PAT H AND % 5:19 AM LAB MEDICINE CDT Monocytes 36 (H) 4 - 12 % 02/18/2023 [facility] DEPT PAT H AND 5:19 AM LAB MEDICINE CDT Blast 41 % 02/18/2023 [facility] DEPT PAT H AND 5:19 AM LAB MEDICINE CDT ANISO PRESENT 02/18/2023 [facility] DEPT PATH AND 5:19 AM LAB MEDICINE CDT Platelet Estimate MKD DEC 02/18/2023 [facility] DEPT P ATH AND 5:19 AM LAB MEDICINE CDT Absolute Neutrophil 1.75 (L) 1.8 - 02/18/2023 [facility] DEPT PATH AND Count Manual 7.0 K/UL 5:19 AM LAB MEDICINE CDT Anatomical Location / Laterality Collection Method / Volume Ernestina ection Time Received Time Specimen (Source) BLOOD / Unknown 02/18/2023 3:36 AM CDT 02/19/20 3:55 AM CDT Virgen Hill LABORATORY ORDERABLES SITE SPECIALIST-PHYSIOTHERAPY PRACTICE MANAGER City/State/ZIP Code Phone Number Performing [place] [address], [facility] DEPT PATH AND [employer] LAB MEDIC[facility] * CULTURE-BLOOD W/SENSITIVITY (02/17/2023 11:21 PM CDT) Pathologist Signature Component Value Ref Test Method Analysis Performed A t Range Time Battery Name BLOOD [facility] DEPT PATH AND CULTURE LAB MEDICINE Report Status FINAL [facility] DEPT PATH AND 02/24/2023 LAB MEDICINE Specimen Description BLOOD BLOOD [facility] DEPT PATH A ND LINE DRAW LAB MEDICINE PICC LINE purple lumen Special Requests aerobic 02/18/2023 [facility] DEPT PA TH AND bottle only 1:35 AM LAB MEDICINE CDT Culture NO GROWTH 5 02/24/2023 [facility] DEPT PATH AND DAYS 5:29 AM LAB MEDICINE CDT Anatomical Location / Laterality Collection Method / Volume Ernestina ection Time Received Time Specimen (Source) BLOOD SAMPLE TAKEN FROM CENTRAL LINE / Unknown 0 02/17/2023 11:21 PM CDT 02/18/2023 1:35 AM CDT Blood Comment: PICC LINE~purple lumen Virgen Hill MICROBIOLOGY ORDERABLES SITE SPECIALIST-[facility]/ZIP Code Phone Number Performing Address Organization [address] [employer] DEPT PATH AND [address] [employer] . LAB MEDICINE * CULTURE-BLOOD W/SENSITIVITY (02/17/2023 11:21 PM CDT) Pathologist Signature Component Value Ref Test Method Analysis Performed A t Range Time Battery Name BLOOD [facility] DEPT PATH AND CULTURE LAB MEDICINE Report Status FINAL [facility] DEPT PATH AND 02/24/2023 LAB MEDICINE Specimen Description BLOOD BLOOD [facility] DEPT PATH A ND LINE DRAW LAB MEDICINE PICC LINE red lumen Special Requests aerobic 02/18/2023 [facility] DEPT PA TH AND bottle only 1:34 AM LAB MEDICINE CDT Culture NO GROWTH 5 02/24/2023 [facility] DEPT PATH AND DAYS 5:29 AM LAB MEDICINE CDT Anatomical Location / Laterality Collection Method / Volume Ernestina ection Time Received Time Specimen (Source) BLOOD SAMPLE TAKEN FROM CENTRAL LINE / Unknown 0 02/17/2023 11:21 PM CDT 02/18/2023 1:34 AM CDT Blood Comment: PICC LINE~red lumen Virgen Hill MICROBIOLOGY ORDERABLES SITE SPECIALIST-PHYSIOTHERAPY PRACTICE MANAGER [facility]/ZIP Code Phone Number Performing Address [place] [address], [facility] DEPT PATH AND [address] [employer] . LAB MEDICINE * CULTURE-BLOOD W/SENSITIVITY (02/17/2023 11:21 PM CDT) Pathologist Signature Component Value Ref Test Method Analysis Performed A t Range Time Battery Name BLOOD [facility] DEPT PATH AND CULTURE LAB MEDICINE Report Status FINAL [facility] DEPT PATH AND 02/24/2023 LAB MEDICINE Specimen Description BLOOD BLOOD, [facility] DEPT PATH A ND PERIPHERAL L LAB MEDICINE hand Special Requests No special 02/17/2023 [facility] DEPT PA TH AND requests 10:42 PM LAB MEDICINE CDT Culture NO GROWTH 5 02/24/2023 [facility] DEPT PATH AND DAYS 5:29 AM LAB MEDICINE CDT Anatomical Location / Laterality Collection Method / Volume Ernestina ection Time Received Time Specimen (Source) PERIPHERAL BLOOD SPECIMEN / Unknown 02/17/2023 1 1:21 PM CDT 02/18/2023 1:33 AM CDT Blood Comment: L hand Virgen Hill MICROBIOLOGY ORDERABLES SITE SPECIALIST-PHYSIOTHERAPY PRACTICE MANAGER City/State/ZIP Code Phone Number Performing [place] [address], [facility] DEPT PATH AND [address] [facility] LAB MEDICINE * LINE PLCMT 1V [...] Horace Arriaga MD on 02/17/2023 3:37 PM. Britt Stevens MD DIAGNOSTIC IMAGING ORDERABL ES * POC US NO READ (02/17/2023 12:34 PM CDT) Anatomical Location / Laterality Collection Method / Volume Ernestina ection Time Received Time Specimen (Source) Narrative [facility] - 02/17/2023 12:34 PM CDT This order has been auto finalized and does not contain a result. Britt Stevens MD US ORDERABLES City/State/ZIP Code Phone Number Performing Address Organization [facility] * (ABNORMAL) POC GLUCOSE (02/17/2023 10:27 AM CDT) Pathologist Signature Component Value Ref Test Method Analysis Performed A t Range Time Glucose, POC 138 (H) 70 - 100 02/17/2023 [facility] GE MG/DL 10:28 AM TOWER A CDT Anatomical Location / Laterality Collection Method / Volume Ernestina ection Time Received Time Specimen (Source) 02/17/2023 10:27 AM CDT 02/18/20 10:28 AM CDT Britt Stevens MD OTHER LABORATORY City/State/ZIP Code Phone Number Performing Address Organization [address] A * (ABNORMAL) POC GLUCOSE (02/17/2023 7:32 AM CDT) Pathologist Signature Component Value Ref Test Method Analysis Performed A t Range Time Glucose, POC 119 (H) 70 - 100 [facility] AM TOWER A CDT Anatomical Location / Laterality Collection Method / Volume Ernestina ection Time Received Time Specimen (Source) 02/17/2023 7:32 AM CDT 02/18/20 7:33 AM CDT Britt Stevens MD OTHER LABORATORY City/State/ZIP Code Phone Number Performing Address Organization [address] A * URIC ACID (02/17/2023 4:07 AM CDT) Pathologist Signature Component Value Ref Test Method Analysis Performed A t Range Time Uric Acid 4.0 4.0 - 02/17/2023 [facility] DEPT PAT H AND 8.0 5:12 AM LAB MEDICINE MG/DL CDT Anatomical Location / Laterality Collection Method / Volume Ernestina ection Time Received Time Specimen (Source) BLOOD / Unknown 02/17/2023 4:07 AM CDT 02/18/20 4:08 AM CDT Virgen Hill LABORATORY ORDERABLES SITE SPECIALIST-PHYSIOTHERAPY PRACTICE MANAGER [facility]/State/ZIP Code Phone Number Performing [place] [address], [employer] DEPT PATH AND [address] [facility]. LAB MEDICINE * FIBRINOGEN (02/17/2023 4:07 AM CDT) Pathologist Signature Component Value Ref Test Method Analysis Performed A t Range Time Fibrinogen 271 200 - 02/17/2023 [facility] DEPT PAT H AND 400 5:11 AM LAB MEDICINE MG/DL CDT Anatomical Location / Laterality Collection Method / Volume Ernestina ection Time Received Time Specimen (Source) BLOOD / Unknown 02/17/2023 4:07 AM CDT 02/18/20 4:08 AM CDT Virgen Burkett Hill LABORATORY ORDERABLES SITE SPECIALIST-PHYSIOTHERAPY PRACTICE MANAGER [facility]/State/ZIP Code Phone Number Performing [place] [address], [facility] DEPT PATH AND [address] [facility] LAB MEDICINE * PHOSPHORUS CELLULAR THERAPEUTICS (02/17/2023 4:07 AM CDT) Pathologist Signature Component Value Ref Test Method Analysis Performed A t Range Time Phosphorus 3.4 2.0 - 02/17/2023 [facility] DEPT PAT H AND 4.5 5:12 AM LAB MEDICINE MG/DL CDT Anatomical Location / Laterality Collection Method / Volume Ernestina ection Time Received Time Specimen (Source) BLOOD / Unknown 02/17/2023 4:07 AM CDT 02/18/20 4:[address] [facility] LABORATORY ORDERABLES [facility]/ZIP Code Phone Number Performing [place] [address], [employer] DEPT PATH AND [address] [facility] LAB [facility] * MAGNESIUM CELLULAR THERAPEUTICS (02/17/2023 4:07 AM CDT) Pathologist Signature Component Value Ref Test Method Analysis Performed A t Range Time Magnesium 2.1 1.6 - 02/17/2023 [facility] DEPT PAT H AND 2.6 5:12 AM LAB MEDICINE mg/dL CDT Anatomical Location / Laterality Collection Method / Volume Ernestina ection Time Received Time Specimen (Source) BLOOD / Unknown 02/17/2023 4:07 AM CDT 02/18/20 4:[address] [facility] LABORATORY ORDERABLES [facility]/ZIP Code Phone Number Performing [place] [address], [employer] [facility] [address] [facility] MEDICINE * (ABNORMAL) COMPREHENSIVE METABOLIC PANEL CELLULAR THERAPEUTICS (02/17/2023 4:07 AM CDT) Pathologist Signature Component Value Ref Test Method Analysis Performed A t Range Time Sodium 136 (L) 137 - 02/17/2023 [facility] DEPT PAT H AND 147 5:12 AM LAB MEDICINE MMOL/L CDT Potassium 4.0 3.5 - 02/17/2023 [facility] DEPT PAT H AND 5.1 5:12 AM LAB MEDICINE MMOL/L CDT Chloride 105 98 - 110 02/17/2023 [facility] DEPT PAT H AND MMOL/L 5:12 AM LAB MEDICINE CDT Glucose 111 (H) 70 - 100 02/17/2023 [facility] DEPT PAT H AND MG/DL 5:12 AM LAB MEDICINE CDT Blood Urea Nitrogen 14 7 - 25 02/17/2023 [facility] DEPT PATH AND MG/DL 5:12 AM LAB MEDICINE CDT Creatinine 1.16 0.4 - 02/17/2023 [facility] DEPT PAT H AND 1.24 5:12 AM LAB MEDICINE MG/DL CDT Calcium 9.0 8.5 - 02/17/2023 [facility] DEPT PAT H AND 10.6 5:12 AM LAB MEDICINE MG/DL CDT Total Protein 5.8 (L) 6.0 - 02/17/2023 [facility] DEPT P ATH AND 8.0 G/DL 5:12 AM LAB MEDICINE CDT Total Bilirubin 1.0 0.3 - 02/17/2023 [facility] DEPT PATH AND 1.2 5:12 AM LAB MEDICINE MG/DL CDT Albumin 3.6 3.5 - 02/17/2023 [facility] DEPT PAT H AND 5.0 G/DL 5:12 AM LAB MEDICINE CDT Alk Phosphatase 38 25 - 110 02/17/2023 [facility] DEPT PATH AND U/L 5:12 AM LAB MEDICINE CDT AST (SGOT) 18 7 - 40 02/17/2023 [facility] DEPT PAT H AND U/L 5:12 AM LAB MEDICINE CDT CO2 22 21 - 30 02/17/2023 [facility] DEPT PAT H AND MMOL/L 5:12 AM LAB MEDICINE CDT ALT (SGPT) 4 (L) 7 - 56 02/17/2023 [facility] DEPT PAT H AND U/L 5:12 AM LAB MEDICINE CDT Anion Gap 9 3 - 12 02/17/2023 [facility] DEPT PAT H AND 5:12 AM LAB MEDICINE CDT eGFR >60 >60 02/17/2023 [facility] DEPT PAT H AND mL/min 5:12 AM LAB MEDICINE CDT Comment: eGFR calculated using the CKD-EPIcr_R equation Anatomical Location / Laterality Collection Method / Volume Ernestina ection Time Received Time Specimen (Source) BLOOD / Unknown 02/17/2023 4:07 AM CDT 02/18/20 4:08 AM CDT Virgen Hill LABORATORY ORDERABLES SITE SPECIALIST-PHYSIOTHERAPY PRACTICE MANAGER City/State/ZIP Code Phone Number Performing [place] [address], [facility] DEPT PATH AND [address] [facility] LAB MEDICINE * PTT (APTT) (02/17/2023 4:07 AM CDT) Pathologist Signature Component Value Ref Test Method Analysis Performed A t Range Time APTT 35.7 24.0 - 02/17/2023 [facility] DE[facility] PAT H AND 36.5 SEC 5:11 AM LAB MEDICINE CDT Anatomical Location / Laterality Collection Method / Volume Ernestina ection Time Received Time Specimen (Source) BLOOD / Unknown 02/17/2023 4:07 AM CDT 02/18/20 4:[address] [facility] LABORATORY ORDERABLES [facility]/ZIP Code Phone Number Performing Address Organization [address] [employer] DEPT PATH AND [address] [facility] * (ABNORMAL) PROTIME INR (PT) (02/17/2023 4:07 AM CDT) Pathologist Signature Component Value Ref Test Method Analysis Performed A t Range Time Protime 18.7 (H) 9.5 - 02/17/2023 [facility] DEPT PAT H AND 14.2 SEC 5:11 AM LAB MEDICINE CDT INR 1.7 (H) 0.8 - 02/17/2023 [facility] DEPT PAT H AND 1.2 5:11 AM LAB MEDICINE CDT Anatomical Location / Laterality Collection Method / Volume Ernestina ection Time Received Time Specimen (Source) BLOOD / Unknown 02/17/2023 4:07 AM CDT 02/18/20 4:08 AM CDT Virgen Barbara [place] LABORATORY ORDERABLES [facility]/ZIP Code Phone Number Performing Address Organization [address] DEPT PATH AND [address] [facility] * (ABNORMAL) CBC AND DIFF CELLULAR THERAPEUTICS (02/17/2023 4:07 AM CDT) Pathologist Signature Component Value Ref Test Method Analysis Performed A t Range Time White Blood Cells 18.2 (H) 4.5 - 02/17/2023 [facility] DE PT PATH AND 11.0 4:47 AM LAB MEDICINE K/UL CDT RBC 2.20 (L) 4.4 - 02/17/2023 [facility] DEPT PAT H AND 5.5 M/UL 4:47 AM LAB MEDICINE CDT Hemoglobin 7.9 (L) 13.5 - 02/17/2023 [facility] DEPT PAT H AND 16.5 4:47 AM LAB MEDICINE GM/DL CDT Hematocrit 23.0 (L) 40 - 50 02/17/2023 [facility] DEPT PAT H AND % 4:47 AM LAB MEDICINE CDT MCV 104.4 (H) 80 - 100 02/17/2023 [facility] DEPT PAT H AND FL 4:47 AM LAB MEDICINE CDT MCH 36.0 (H) 26 - 34 02/17/2023 [facility] DEPT PAT H AND PG 4:47 AM LAB MEDICINE CDT MCHC 34.5 32.0 - 02/17/2023 [facility] DEPT PAT H AND 36.0 4:47 AM LAB MEDICINE G/DL CDT RDW 18.7 (H) 11 - 15 02/17/2023 [facility] DEPT PAT H AND % 4:47 AM LAB MEDICINE CDT Platelet Count 47 (L) 150 - 02/17/2023 [facility] DEPT PATH AND 400 K/UL 4:47 AM LAB MEDICINE CDT MPV 9.9 7 - 11 02/17/2023 [facility] DEPT PAT H AND FL 4:47 AM LAB MEDICINE CDT Segmented 2 (L) 41 - 77 02/17/2023 [facility] DEPT PAT H AND Neutrophils % 6:26 AM LAB MEDICINE CDT Lymphocytes 20 (L) 24 - 44 02/17/2023 [facility] DEPT PAT H AND % 6:26 AM LAB MEDICINE CDT Monocytes 10 4 - 12 % 02/17/2023 [facility] DEPT PAT H AND 6:26 AM LAB MEDICINE CDT Blast 68 % 02/17/2023 [facility] DEPT PAT H AND 6:26 AM LAB MEDICINE CDT ANISO PRESENT 02/17/2023 [facility] DEPT PATH AND 6:26 AM LAB MEDICINE CDT MACRO PRESENT 02/17/2023 [facility] DEPT PATH AND 6:26 AM LAB MEDICINE CDT Platelet Estimate MKD DEC 02/17/2023 [facility] DEPT P ATH AND 6:26 AM LAB MEDICINE CDT Absolute Neutrophil 0.36 (L) 1.8 - 02/17/2023 [facility] DEPT PATH AND Count Manual 7.0 K/UL 6:26 AM LAB MEDICINE CDT Anatomical Location / Laterality Collection Method / Volume Ernestina ection Time Received Time Specimen (Source) BLOOD / Unknown 02/17/2023 4:07 AM CDT 02/18/20 4:08 AM CDT Virgen Burkett Hill LABORATORY ORDERABLES SITE SPECIALIST-PHYSIOTHERAPY PRACTICE MANAGER City/State/ZIP Code Phone Number Performing [place] [address], [facility] PATH AND [address] [facility] LAB MEDICINE * (ABNORMAL) POC GLUCOSE (02/16/2023 4:53 PM CDT) Pathologist Signature Component Value Ref Test Method Analysis Performed A t Range Time Glucose, POC 121 (H) 70 - 100 02/16/2023 [facility] GE MG/DL 4:54 PM TOWER A CDT Anatomical Location / Laterality Collection Method / Volume Ernestina ection Time Received Time Specimen (Source) 02/16/2023 4:53 PM CDT 02/17/20 4:54 PM CDT Britt Stevens MD OTHER LABORATORY City/State/ZIP Code Phone Number Performing Address Organization [place], [place] [address] [place] [address] [address] [facility] * MULTI GATED (02/16/2023 1:16 PM CDT) [...] 02/16/2023 4:20 PM CDT Nuclear Report Cardiology: [facility] Heart [facility] Division of Nuclear Cardiac Imaging Consultation Report EXAMINATION: D-SPECT Gated Technetium-99m Myoview Same-Day Stress/Rest myocardial perfusion single-photon emission computed tomography resting regional wall function, resting ejection fraction, and perfusion imaging utilizing Regadenoson pharmacological stress. Date of Study: 02/16/23 Camera Location and Number: [id number] KU Billing ID: [id number] Referring Physician: Requested by: Julia Ballard APRN-NP [...] Pharmacologic stress ECG is negative for ischemia. Wclthnubg-vd-Xhrqjgtcrf Count Ratio: 0.38 (normal = or < [...] are no prior studies available for comparison. Julia Daja [place] NUCLEAR CARDIOLOGY ORDERABL ES SITE SPECIALIST-PHYSIOTHERAPY PRACTICE MANAGER * (ABNORMAL) POC GLUCOSE (02/16/2023 8:12 AM CDT) Pathologist Signature Component Value Ref Test Method Analysis Performed A t Range Time Glucose, POC 120 (H) 70 - 100 [facility]2023 [facility] MG/DL 8:14 AM [place] [facility] Anatomical Location / Laterality Collection Method / Volume Ernestina ection Time Received Time Specimen (Source) 02/16/2023 8:12 AM CDT 02/17/20 8:14 AM CDT Britt Stevens MD OTHER LABORATORY City/State/ZIP Code Phone Number Performing [place] [address] * URIC ACID (02/16/2023 4:31 AM CDT) Pathologist Signature Component Value Ref Test Method Analysis Performed A t Range Time Uric Acid 4.4 4.0 - 02/16/2023 [facility] DEPT PAT H AND 8.0 5:42 AM LAB MEDICINE MG/DL CDT Anatomical Location / Laterality Collection Method / Volume Ernestina ection Time Received Time Specimen (Source) BLOOD / Unknown 02/16/2023 4:31 AM CDT 02/17/20 4:32 AM CDT Virgen Burkett [place] LABORATORY ORDERABLES SITE SPECIALIST-[facility]/State/ZIP Code Phone Number Performing [place] [address], [employer] DEPT PATH AND [address] [facility] LAB [facility] * FIBRINOGEN (02/16/2023 4:31 AM CDT) Pathologist Signature Component Value Ref Test Method Analysis Performed A t Range Time Fibrinogen 252 200 - 02/16/2023 [facility] DEPT PAT H AND 400 5:36 AM LAB MEDICINE MG/DL CDT Anatomical Location / Laterality Collection Method / Volume Ernestina ection Time Received Time Specimen (Source) BLOOD / Unknown 02/16/2023 4:31 AM CDT 02/17/20 4:32 AM CDT Virgen Burkett [place] LABORATORY ORDERABLES [facility]/ZIP Code Phone Number Performing [place] [address], [employer] DEPT PATH AND [address] [facility] * PHOSPHORUS CELLULAR THERAPEUTICS (02/16/2023 4:31 AM CDT) Pathologist Signature Component Value Ref Test Method Analysis Performed A t Range Time Phosphorus 3.5 2.0 - 02/16/2023 [facility] DEPT PAT H AND 4.5 5:42 AM LAB MEDICINE MG/DL CDT Anatomical Location / Laterality Collection Method / Volume Ernestina ection Time Received Time Specimen (Source) BLOOD / Unknown 02/16/2023 4:31 AM CDT 02/17/20 4:32 AM CDT Virgen Burkett [place] LABORATORY ORDERABLES SITE SPECIALIST-[facility]/ZIP Code Phone Number Performing [place] [address], [employer] DEPT PATH AND [address] [facility] LAB MEDICINE * MAGNESIUM CELLULAR THERAPEUTICS (02/16/2023 4:31 AM CDT) Pathologist Signature Component Value Ref Test Method Analysis Performed A t Range Time Magnesium 1.7 1.6 - 02/16/2023 [facility] DEPT PAT H AND 2.6 5:42 AM LAB MEDICINE mg/dL CDT Anatomical Location / Laterality Collection Method / Volume Ernestina ection Time Received Time Specimen (Source) BLOOD / Unknown 02/16/2023 4:31 AM CDT 02/17/20 4:32 AM CDT Virgen M Sergio LABORATORY ORDERABLES SITE SPECIALIST-PHYSIOTHERAPY PRACTICE MANAGER City/State/ZIP Code Phone Number Performing [place] [address], [facility] DEPT PATH AND [address] LAB MEDICINE * (ABNORMAL) COMPREHENSIVE METABOLIC PANEL CELLULAR THERAPEUTICS (02/16/2023 4:31 AM CDT) Pathologist Signature Component Value Ref Test Method Analysis Performed A t Range Time Sodium 136 (L) 137 - 02/16/2023 [facility] DEPT PAT H AND 147 5:42 AM LAB MEDICINE MMOL/L CDT Potassium 3.5 3.5 - 02/16/2023 [facility] DEPT PAT H AND 5.1 5:42 AM LAB MEDICINE MMOL/L CDT Chloride 104 98 - 110 02/16/2023 [facility] DEPT PAT H AND MMOL/L 5:42 AM LAB MEDICINE CDT Glucose 106 (H) 70 - 100 02/16/2023 [facility] DEPT PAT H AND MG/DL 5:42 AM LAB MEDICINE CDT Blood Urea Nitrogen 13 7 - 25 02/16/2023 [facility] DEPT PATH AND MG/DL 5:42 AM LAB MEDICINE CDT Creatinine 1.07 0.4 - 02/16/2023 [facility] DEPT PAT H AND 1.24 5:42 AM LAB MEDICINE MG/DL CDT Calcium 9.0 8.5 - 02/16/2023 [facility] DEPT PAT H AND 10.6 5:42 AM LAB MEDICINE MG/DL CDT Total Protein 5.8 (L) 6.0 - 02/16/2023 [facility] DEPT P ATH AND 8.0 G/DL 5:42 AM LAB MEDICINE CDT Total Bilirubin 1.0 0.3 - 02/16/2023 [facility] DEPT PATH AND 1.2 5:42 AM LAB MEDICINE MG/DL CDT Albumin 3.6 3.5 - 02/16/2023 [facility] DEPT PAT H AND 5.0 G/DL 5:42 AM LAB MEDICINE CDT Alk Phosphatase 37 25 - 110 02/16/2023 [facility] DEPT PATH AND U/L 5:42 AM LAB MEDICINE CDT AST (SGOT) 19 7 - 40 02/16/2023 [facility] DEPT PAT H AND U/L 5:42 AM LAB MEDICINE CDT CO2 21 21 - 30 02/16/2023 [facility] DEPT PAT H AND MMOL/L 5:42 AM LAB MEDICINE CDT ALT (SGPT) 6 (L) 7 - 56 02/16/2023 [facility] DEPT PAT H AND U/L 5:42 AM LAB MEDICINE CDT Anion Gap 11 3 - 12 02/16/2023 [facility] DEPT PAT H AND 5:42 AM LAB MEDICINE CDT eGFR >60 >60 02/16/2023 [facility] DEPT PAT H AND mL/min 5:42 AM LAB MEDICINE CDT Comment: eGFR calculated using the CKD-EPIcr_R equation Anatomical Location / Laterality Collection Method / Volume Ernestina ection Time Received Time Specimen (Source) BLOOD / Unknown 02/16/2023 4:31 AM CDT 02/17/20 4:32 AM CDT Virgen Burkett [place] LABORATORY ORDERABLES [facility] Code Phone Number Performing Address Organization [address] [employer] DEPT PATH AND [employer] [facility] LAB MEDICINE * PTT (APTT) (02/16/2023 4:31 AM CDT) Pathologist Signature Component Value Ref Test Method Analysis Performed A t Range Time APTT 34.8 24.0 - 02/16/2023 [facility] DEPT PAT H AND 36.5 SEC 5:36 AM LAB MEDICINE CDT Anatomical Location / Laterality Collection Method / Volume Ernestina ection Time Received Time Specimen (Source) BLOOD / Unknown 02/16/2023 4:31 AM CDT 02/17/20 4:[address] [facility] LABORATORY ORDERABLES SITE SPECIALIST-[facility]/ZIP Code Phone Number Performing Address Organization [address] [employer] DEPT PATH AND [address] [employer] [facility] LAB MEDICINE * (ABNORMAL) PROTIME INR (PT) (02/16/2023 4:31 AM CDT) Pathologist Signature Component Value Ref Test Method Analysis Performed A t Range Time Protime 20.1 (H) 9.5 - 02/16/2023 [facility] DEPT PAT H AND 14.2 SEC 5:36 AM LAB MEDICINE CDT INR 1.8 (H) 0.8 - 02/16/2023 [facility] DEPT PAT H AND 1.2 5:36 AM LAB MEDICINE CDT Anatomical Location / Laterality Collection Method / Volume Ernestina ection Time Received Time Specimen (Source) BLOOD / Unknown 02/16/2023 4:31 AM CDT 02/17/20 23 4:32 AM CDT Virgen Hill LABORATORY ORDERABLES SITE SPECIALIST-PHYSIOTHERAPY PRACTICE MANAGER City/State/ZIP Code Phone Number Performing [place] [address], [facility] DEPT PATH AND [address] LAB MEDICINE * (ABNORMAL) CBC AND DIFF CELLULAR THERAPEUTICS (02/16/2023 4:31 AM CDT) Pathologist Signature Component Value Ref Test Method Analysis Performed A t Range Time White Blood Cells 16.3 (H) 4.5 - 02/16/2023 [facility] DE PT PATH AND 11.0 5:14 AM LAB MEDICINE K/UL CDT RBC 2.31 (L) 4.4 - 02/16/2023 [facility] DEPT PAT H AND 5.5 M/UL 5:14 AM LAB MEDICINE CDT Hemoglobin 8.0 (L) 13.5 - 02/16/2023 [facility] DEPT PAT H AND 16.5 5:14 AM LAB MEDICINE GM/DL CDT Hematocrit 23.9 (L) 40 - 50 02/16/2023 [facility] DEPT PAT H AND % 5:14 AM LAB MEDICINE CDT MCV 103.8 (H) 80 - 100 02/16/2023 [facility] DEPT PAT H AND FL 5:14 AM LAB MEDICINE CDT MCH 34.9 (H) 26 - 34 02/16/2023 [facility] DEPT PAT H AND PG 5:14 AM LAB MEDICINE CDT MCHC 33.6 32.0 - 02/16/2023 [facility] DEPT PAT H AND 36.0 5:14 AM LAB MEDICINE G/DL CDT RDW 17.7 (H) 11 - 15 02/16/2023 [facility] DEPT PAT H AND % 5:14 AM LAB MEDICINE CDT Platelet Count 47 (L) 150 - 02/16/2023 [facility] DEPT PATH AND 400 K/UL 5:14 AM LAB MEDICINE CDT MPV 9.7 7 - 11 02/16/2023 [facility] DEPT PAT H AND FL 5:14 AM LAB MEDICINE CDT Segmented 4 (L) 41 - 77 02/16/2023 [facility] DEPT PAT H AND Neutrophils % 6:18 AM LAB MEDICINE CDT Lymphocytes 14 (L) 24 - 44 02/16/2023 [facility] DEPT PAT H AND % 6:18 AM LAB MEDICINE CDT Monocytes 20 (H) 4 - 12 % 02/16/2023 [facility] DEPT PAT H AND 6:18 AM LAB MEDICINE CDT Blast 62 % 02/16/2023 [facility] DEPT PAT H AND 6:18 AM LAB MEDICINE CDT ANISO PRESENT 02/16/2023 [facility] DEPT PATH AND 6:18 AM LAB MEDICINE CDT MACRO PRESENT 02/16/2023 [facility] DEPT PATH AND 6:18 AM LAB MEDICINE CDT Platelet Estimate MKD DEC 02/16/2023 [facility] DEPT P ATH AND 6:18 AM LAB MEDICINE CDT Absolute Neutrophil 0.65 (L) 1.8 - 02/16/2023 [facility] DEPT PATH AND Count Manual 7.0 K/UL 6:18 AM LAB MEDICINE CDT Anatomical Location / Laterality Collection Method / Volume Ernestina ection Time Received Time Specimen (Source) BLOOD / Unknown 02/16/2023 4:31 AM CDT 02/17/20 4:32 AM CDT Virgen Hill LABORATORY ORDERABLES SITE SPECIALIST-PHYSIOTHERAPY PRACTICE MANAGER City/State/ZIP Code Phone Number Performing [place] [address], [facility] DEPT PATH AND [address] . LAB MEDICINE * (ABNORMAL) POC GLUCOSE (02/15/2023 9:29 PM CDT) Pathologist Signature Component Value Ref Test Method Analysis Performed A t Range Time Glucose, POC 145 (H) 70 - 100 02/15/2023 [facility] GE MG/DL 9:34 PM TOWER A CDT Anatomical Location / Laterality Collection Method / Volume Ernestina ection Time Received Time Specimen (Source) 02/15/2023 9:29 PM CDT 02/16/20 9:34 PM CDT Britt Stevens MD OTHER LABORATORY City/State/ZIP Code Phone Number Performing Address Organization [address] A * (ABNORMAL) POC GLUCOSE (02/15/2023 5:55 PM CDT) Pathologist Signature Component Value Ref Test Method Analysis Performed A t Range Time Glucose, POC 119 (H) 70 - 100 02/15/2023 [facility] GE MG/DL 5:57 PM TOWER A CDT Anatomical Location / Laterality Collection Method / Volume Ernestina ection Time Received Time Specimen (Source) 02/15/2023 5:55 PM CDT 02/16/20 5:57 PM CDT Britt Stevens MD OTHER LABORATORY City/State/ZIP Code Phone Number Performing Address Organization [address] A * PV CAROTID ARTERY DUPLEX SCAN (02/15/2023 [...] No prior study available for comparison. Julia Ballard PERIPHERAL VASCULAR ORDERAB LES SITE SPECIALIST-PHYSIOTHERAPY PRACTICE MANAGER * (ABNORMAL) POC GLUCOSE (02/15/2023 2:01 PM CDT) Pathologist Signature Component Value Ref Test Method Analysis Performed A t Range Time Glucose, POC 164 (H) 70 - 100 02/15/2023 [facility] MG/DL 2:03 PM [place] A CDT Anatomical Location / Laterality Collection Method / Volume Ernestina ection Time Received Time Specimen (Source) 02/15/2023 2:01 PM CDT 02/16/20 2:03 PM CDT Britt Stevens MD OTHER LABORATORY City/State/ZIP Code Phone Number Performing [place] [address] A * ECG 12-LEAD (02/15/2023 12:01 PM CDT) [...] 02/15/2023 8:35:51 PM Fartun Mackenzie ECG ORDERABLES SITE SPECIALIST-PHYSIOTHERAPY PRACTICE MANAGER City/State/ZIP Code Phone Number Performing Address Organization [employer] [facility] * HIGH SENSITIVITY TROPONIN I, RANDOM (02/15/2023 11:52 AM CDT) Pathologist Signature Component Value Ref Test Method Analysis Performed A t Range Time hs Troponin I, 7 <20 ng/L 02/15/2023 [facility] DEPT PATH AND Random 1:29 PM LAB MEDICINE CDT Anatomical Location / Laterality Collection Method / Volume Ernestina ection Time Received Time Specimen (Source) BLOOD / Unknown 02/15/2023 11:52 AM CDT 02/16/20 12:28 PM CDT Fartun Mackenzie LABORATORY ORDERABLES SITE SPECIALIST-PHYSIOTHERAPY PRACTICE MANAGER City/State/ZIP Code Phone Number Performing Address [place] [address], [facility] DEPT PATH AND [address] [facility] LAB MEDICINE * (ABNORMAL) NT-PRO-BNP (02/15/2023 11:52 AM CDT) Pathologist Signature Component Value Ref Test Method Analysis Performed A t Range Time NT-Pro-BNP 1,459.0 (H) <450 02/15/2023 [facility] DEPT PAT H AND pg/mL 1:31 PM [...] 12:28 PM CDT Fartun Mackenzie LABORATORY ORDERABLES SITE SPECIALIST-PHYSIOTHERAPY PRACTICE MANAGER City/State/ZIP Code Phone Number Performing [place] [address], [facility] DEPT PATH AND [address] LAB MEDICINE * 2D + DOPPLER ECHO [...] mmHg OTHER OUTSID E LAB artery pressure CASTLE'S BIPLANE EF 62 % OTHER OUT SIDE LAB Modality Anatomical Region Laterality Ultrasound Anatomical Location / Laterality Collection Method / Volume Ernestina ection Time Received Time Specimen (Source) Narrative 02/15/2023 2:27 PM CDT The left ventricular size is normal with concentric remodeling. The left ventricular systolic function is normal. The ejection fraction by Castle's biplane method is 62%. The right ventricle [...] function is normal. The ejection fraction by Castle's biplane method is 62%. There are no [...] motion is normal. Morena Wilkerson ECHO ORDERABLES SITE SPECIALIST-PHYSIOTHERAPY PRACTICE MANAGER * (ABNORMAL) POC GLUCOSE (02/15/2023 8:20 AM CDT) Pathologist Signature Component Value Ref Test Method Analysis Performed A t Range Time Glucose, POC 103 (H) 70 - 100 02/15/2023 [facility] GE MG/DL 8:21 AM [facility] CDT Anatomical Location / Laterality Collection Method / Volume Ernestina ection Time Received Time Specimen (Source) 02/15/2023 8:20 AM CDT 02/16/20 8:21 AM CDT Britt Stevens MD OTHER LABORATORY City/State/ZIP Code Phone Number Performing [place] [address] * URIC ACID (02/15/2023 4:47 AM CDT) Pathologist Signature Component Value Ref Test Method Analysis Performed A t Range Time Uric Acid 4.5 4.0 - 02/15/2023 [facility] PAT H AND 8.0 5:41 AM LAB MEDICINE MG/DL CDT Anatomical Location / Laterality Collection Method / Volume Ernestina ection Time Received Time Specimen (Source) BLOOD / Unknown 02/15/2023 4:47 AM CDT 02/16/20 4:48 AM CDT Virgen Hill LABORATORY ORDERABLES SITE SPECIALIST-[facility]/State/ZIP Code Phone Number Performing [place] [address], [employer] DEPT PATH AND [address] [facility] * FIBRINOGEN (02/15/2023 4:47 AM CDT) Pathologist Signature Component Value Ref Test Method Analysis Performed A t Range Time Fibrinogen 241 200 - 02/15/2023 [facility] DEPT PAT H AND 400 5:34 AM LAB MEDICINE MG/DL CDT Anatomical Location / Laterality Collection Method / Volume Ernestina ection Time Received Time Specimen (Source) BLOOD / Unknown 02/15/2023 4:47 AM CDT 02/16/20 4:48 AM CDT Virgen Hill LABORATORY ORDERABLES SITE SPECIALIST-PHYSIOTHERAPY PRACTICE MANAGER [facility]/ZIP Code Phone Number Performing [place] [address], [employer] DEPT PATH AND [address] [facility] * PHOSPHORUS CELLULAR THERAPEUTICS (02/15/2023 4:47 AM CDT) Pathologist Signature Component Value Ref Test Method Analysis Performed A t Range Time Phosphorus 3.2 2.0 - 02/15/2023 [facility] DEPT PAT H AND 4.5 5:41 AM LAB MEDICINE MG/DL CDT Anatomical Location / Laterality Collection Method / Volume Ernestina ection Time Received Time Specimen (Source) BLOOD / Unknown 02/15/2023 4:47 AM CDT 02/16/20 4:48 AM CDT Virgen Hill LABORATORY ORDERABLES SITE SPECIALIST-PHYSIOTHERAPY PRACTICE MANAGER [facility]/ZIP Code Phone Number Performing [place] [address], [employer] DEPT PATH AND [address] [facility] LAB MEDICINE * MAGNESIUM CELLULAR THERAPEUTICS (02/15/2023 4:47 AM CDT) Pathologist Signature Component Value Ref Test Method Analysis Performed A t Range Time Magnesium 1.7 1.6 - 02/15/2023 [facility] DEPT PAT H AND 2.6 5:41 AM LAB MEDICINE mg/dL CDT Anatomical Location / Laterality Collection Method / Volume Ernestina ection Time Received Time Specimen (Source) BLOOD / Unknown 02/15/2023 4:47 AM CDT 08/23/20 23 4:48 AM CDT Virgen Hill LABORATORY ORDERABLES SITE SPECIALIST-PHYSIOTHERAPY PRACTICE MANAGER City/State/ZIP Code Phone Number Performing [place] [address], [facility] DEPT PATH AND [address] [facility]. LAB MEDICINE * (ABNORMAL) COMPREHENSIVE METABOLIC PANEL CELLULAR THERAPEUTICS (02/15/2023 4:47 AM CDT) Pathologist Signature Component Value Ref Test Method Analysis Performed A t Range Time Sodium 138 137 - 02/15/2023 [facility] DEPT PAT H AND 147 5:41 AM LAB MEDICINE MMOL/L CDT Potassium 3.5 3.5 - 02/15/2023 [facility] DEPT PAT H AND 5.1 5:41 AM LAB MEDICINE MMOL/L CDT Chloride 107 98 - 110 02/15/2023 [facility] DEPT PAT H AND MMOL/L 5:41 AM LAB MEDICINE CDT Glucose 94 70 - 100 02/15/2023 [facility] DEPT PAT H AND MG/DL 5:41 AM LAB MEDICINE CDT Blood Urea Nitrogen 16 7 - 25 02/15/2023 [facility] DEPT PATH AND MG/DL 5:41 AM LAB MEDICINE CDT Creatinine 0.92 0.4 - 02/15/2023 [facility] DEPT PAT H AND 1.24 5:41 AM LAB MEDICINE MG/DL CDT Calcium 9.0 8.5 - 02/15/2023 [facility] DEPT PAT H AND 10.6 5:41 AM LAB MEDICINE MG/DL CDT Total Protein 5.5 (L) 6.0 - 02/15/2023 [facility] DEPT P ATH AND 8.0 G/DL 5:41 AM LAB MEDICINE CDT Total Bilirubin 1.0 0.3 - 02/15/2023 [facility] DEPT PATH AND 1.2 5:41 AM LAB MEDICINE MG/DL CDT Albumin 3.3 (L) 3.5 - 02/15/2023 [facility] DEPT PAT H AND 5.0 G/DL 5:41 AM LAB MEDICINE CDT Alk Phosphatase 33 25 - 110 02/15/2023 [facility] DEPT PATH AND U/L 5:41 AM LAB MEDICINE CDT AST (SGOT) 17 7 - 40 02/15/2023 [facility] DEPT PAT H AND U/L 5:41 AM LAB MEDICINE CDT CO2 22 21 - 30 02/15/2023 [facility] DEPT PAT H AND MMOL/L 5:41 AM LAB MEDICINE CDT ALT (SGPT) 6 (L) 7 - 56 02/15/2023 [facility] DEPT PAT H AND U/L 5:41 AM LAB MEDICINE CDT Anion Gap 9 3 - 12 02/15/2023 [facility] DEPT PAT H AND 5:41 AM LAB MEDICINE CDT eGFR >60 >60 02/15/2023 [facility] DEPT PAT H AND mL/min 5:41 AM LAB MEDICINE CDT Comment: eGFR calculated using the CKD-EPIcr_R equation Anatomical Location / Laterality Collection Method / Volume Ernestina ection Time Received Time Specimen (Source) BLOOD / Unknown 02/15/2023 4:47 AM CDT 02/16/20 4:[address] [facility] LABORATORY ORDERABLES [facility] Code Phone Number Performing Address Organization [address] [employer] DEPT PATH AND [address] [facility] LAB MEDICINE * PTT (APTT) (02/15/2023 4:47 AM CDT) Pathologist Signature Component Value Ref Test Method Analysis Performed A t Range Time APTT 35.3 24.0 - 02/15/2023 [facility] DEPT PAT H AND 36.5 SEC 5:34 AM LAB MEDICINE CDT Anatomical Location / Laterality Collection Method / Volume Ernestina ection Time Received Time Specimen (Source) BLOOD / Unknown 02/15/2023 4:47 AM CDT 02/16/20 4:[address] [facility] LABORATORY ORDERABLES S[facility]IST[facility] Code Phone Number Performing [place] [address], [employer] PATH AND [address] [facility] LAB MEDICINE * (ABNORMAL) PROTIME INR (PT) (02/15/2023 4:47 AM CDT) Pathologist Signature Component Value Ref Test Method Analysis Performed A t Range Time Protime 20.5 (H) 9.5 - 02/15/2023 [facility] DEPT PAT H AND 14.2 SEC 5:34 AM LAB MEDICINE CDT INR 1.9 (H) 0.8 - 02/15/2023 [facility] DEPT PAT H AND 1.2 5:34 AM LAB MEDICINE CDT Anatomical Location / Laterality Collection Method / Volume Ernestina ection Time Received Time Specimen (Source) BLOOD / Unknown 02/15/2023 4:47 AM CDT 02/16/20 4:48 AM CDT Virgen Hill LABORATORY ORDERABLES SITE SPECIALIST-PHYSIOTHERAPY PRACTICE MANAGER City/State/ZIP Code Phone Number Performing [place] [address], [facility] DEPT PATH AND [address] [facility] LAB MEDICINE * (ABNORMAL) CBC AND DIFF CELLULAR THERAPEUTICS (02/15/2023 4:47 AM CDT) Pathologist Signature Component Value Ref Test Method Analysis Performed A t Range Time White Blood Cells 14.6 (H) 4.5 - 02/15/2023 [facility] DE PT PATH AND 11.0 5:20 AM LAB MEDICINE K/UL CDT RBC 2.20 (L) 4.4 - 02/15/2023 [facility] DEPT PAT H AND 5.5 M/UL 5:20 AM LAB MEDICINE CDT Hemoglobin 7.6 (L) 13.5 - 02/15/2023 [facility] DEPT PAT H AND 16.5 5:20 AM LAB MEDICINE GM/DL CDT Hematocrit 22.6 (L) 40 - 50 02/15/2023 [facility] DEPT PAT H AND % 5:20 AM LAB MEDICINE CDT MCV 103.0 (H) 80 - 100 02/15/2023 [facility] DEPT PAT H AND FL 5:20 AM LAB MEDICINE CDT MCH 34.7 (H) 26 - 34 02/15/2023 [facility] DEPT PAT H AND PG 5:20 AM LAB MEDICINE CDT MCHC 33.7 32.0 - 02/15/2023 [facility] DEPT PAT H AND 36.0 5:20 AM LAB MEDICINE G/DL CDT RDW 17.9 (H) 11 - 15 02/15/2023 [facility] DEPT PAT H AND % 5:20 AM LAB MEDICINE CDT Platelet Count 46 (L) 150 - 02/15/2023 [facility] DEPT PATH AND 400 K/UL 5:20 AM LAB MEDICINE CDT MPV 9.5 7 - 11 02/15/2023 [facility] DEPT PAT H AND FL 5:20 AM LAB MEDICINE CDT Segmented 5 (L) 41 - 77 02/15/2023 [facility] DEPT PAT H AND Neutrophils % 10:09 AM LAB MEDICINE CDT Lymphocytes 22 (L) 24 - 44 02/15/2023 [facility] DEPT PAT H AND % 10:09 AM LAB MEDICINE CDT Monocytes 13 (H) 4 - 12 % 02/15/2023 [facility] DE[facility] PAT H AND 10:09 AM LAB MEDICINE CDT Blast 60 % 02/15/2023 [facility] DEPT PAT H AND 10:09 AM LAB MEDICINE CDT ANISO PRESENT 02/15/2023 [facility] DEPT PATH AND 10:09 AM LAB MEDICINE CDT POLY PRESENT 02/15/2023 [facility] DEPT PATH AND 10:09 AM LAB MEDICINE CDT MACRO PRESENT 02/15/2023 [facility] DEPT PATH AND 10:09 AM LAB MEDICINE CDT Platelet Estimate MKD DEC 02/15/2023 [facility] DEPT P ATH AND 10:09 AM LAB MEDICINE CDT Absolute Neutrophil 0.73 (L) 1.8 - 02/15/2023 [facility] DEPT PATH AND Count Manual 7.0 K/UL 10:09 AM LAB MEDICINE CDT Anatomical Location / Laterality Collection Method / Volume Ernestina ection Time Received Time Specimen (Source) BLOOD / Unknown 02/15/2023 4:47 AM CDT 02/16/20 4:48 AM CDT Virgen Hill LABORATORY ORDERABLES SITE SPECIALIST-PHYSIOTHERAPY PRACTICE MANAGER City/State/ZIP Code Phone Number Performing Address Organization [address] [facility] LAB MEDICINE * (ABNORMAL) POC GLUCOSE (02/14/2023 9:13 PM CDT) Pathologist Signature Component Value Ref Test Method Analysis Performed A t Range Time Glucose, POC 129 (H) 70 - 100 [facility]14 [facility] CDT Anatomical Location / Laterality Collection Method / Volume Ernestina ection Time Received Time Specimen (Source) 02/14/2023 9:13 PM CDT 02/15/20 9:14 PM CDT Britt Stevens MD OTHER LABORATORY City/State/ZIP Code Phone Number Performing Address Organization [address] [facility] * (ABNORMAL) POC GLUCOSE (02/14/2023 5:37 PM CDT) Pathologist Signature Component Value Ref Test Method Analysis Performed A t Range Time Glucose, POC 111 (H) 70 - 100 02/14/2023 [facility] GE MG/DL 5:38 PM [facility] Anatomical Location / Laterality Collection Method / Volume Ernestina ection Time Received Time Specimen (Source) 02/14/2023 5:37 PM CDT 02/15/20 5:38 PM CDT Britt Stevens MD OTHER LABORATORY City/State/ZIP Code Phone Number Performing Address Organization [place], [place] [id number] [place] [address] [place] [address] A * BONE MARROW (02/14/2023 3:46 PM CDT) Pathologist Signature Component Value Ref Test Method Analysis Performed A t Range Time PATHOLOGY REPORT THE 02/20/2023 [facility] DEPT [facility] 12:00 AM LAB MEDICINE OF [facility] [email or web address] Department of Pathology and Laboratory Medicine [address] [place] [id number] Surgical Pathology Office: Fax: SURGICAL PATHOLOGY REPORT NAME: BRAULIO LÓPEZ SURG PATH #: [id number] MR #: [id number] ALT ID #: LOCATION: [id number] DATE OF PROCEDURE: 02/14/2023 AGE: 82 SEX: M DATE RECEIVED: 02/14/2023 : 1940 TIME RECEIVED: 15:46 PHYSICIAN: KINGA TREVINO DATE OF REPORT: 02/17/2023 COPY TO: DATE [...] By PETE RAPHAEL MD on 02/17/2023 ROLANDO Burkett JULIANNE ksw/ 3 Procedures/A ddenda Addendum Date Ordered: 02/20/2023 [...] of Pathology and Laboratory Medicine of the [facility] ([employer]) in compliance with CLIA'88 regulations. [...] of Pathology and Laboratory Medicine of the [facility]. It has not been cleared or approved by the FDA. The FDA has determined that such clearance or approval is not necessary. Anatomical Location / Laterality Collection Method / Volume Ernestina ection Time Received Time Specimen (Source) 02/14/2023 3:46 PM CDT 02/15/20 3:46 PM CDT Morena Wilkerson BONE MARROW ORDERABLES [facility]/ZIP Code Phone Number Performing [place] [address], [facility] AND [address] [facility] LAB MEDICINE * CHROMOSOMES FISH DNA PROBE (02/14/2023 3:11 PM CDT) Pathologist Signature Component Value Ref Test Method Analysis Performed A t Range Time Chromosomes Fish DNA Cytogenetics 02/16/2023 [facility] T PATH AND Probe Report 2:28 PM LAB MEDICINE Available in CDT [facility] Anatomical Location / Laterality Collection Method / Volume Ernestina ection Time Received Time Specimen (Source) BONE MARROW SPECIMEN / Unknown 02/14/2023 3:11 PM CDT 02/14/2023 3:27 PM CDT Morena Wilkerson BONE MARROW ORDERABLES SITE SPECIALISTHigh[facility]/ZIP Code Phone Number Performing [place] [address], [employer] DEPT PATH AND [address] [facility]. LAB MEDICINE * CHROMOSOMES BONE MARROW (02/14/2023 3:11 PM CDT) Pathologist Signature Component Value Ref Test Method Analysis Performed A t Range Time Chromosomes Bone Cytogenetics [facility]20[facility] Marrow Report 11:28 AM LAB MEDICINE Available in CDT [facility] Anatomical Location / Laterality Collection Method / Volume Ernestina ection Time Received Time Specimen (Source) BONE MARROW SPECIMEN / Unknown 02/14/2023 3:11 PM CDT 02/14/2023 3:27 PM CDT Morena Wilkerson BONE MARROW ORDERABLES SITE SPECIALIST-PHYSIOTHERAPY PRACTICE MANAGER [facility]/State/ZIP Code Phone Number Performing [place] [address], [facility] PATH AND [address] [facility] LAB MEDICINE * FE STAIN (02/14/2023 3:11 PM CDT) Pathologist Signature Component Value Ref Test Method Analysis Performed A t Range Time Bone Marrow FE SEE 02/14/2023 [facility] DEPT PATH AND PATHOLOGY 1:11 PM LAB MEDICINE REPORT CDT Anatomical Location / Laterality Collection Method / Volume Ernestina ection Time Received Time Specimen (Source) BONE MARROW SPECIMEN / Unknown 02/14/2023 3:11 PM CDT 02/14/2023 3:26 PM CDT Bone Marrow Morena Wilkerson BONE MARROW ORDERABLES SITE SPECIALIST-[facility]/ZIP Code Phone Number Performing [place] [address], [facility] PATH AND [address] [facility] LAB MEDICINE * BONE MARROW BIOPSY (02/14/2023 3:11 PM CDT) Pathologist Signature Component Value Ref Test Method Analysis Performed A t Range Time Bone Marrow Bx SEE 02/[facility]2023 [facility] PATHOLOGY 7:52 AM LAB MEDICINE REPORT CDT Anatomical Location / Laterality Collection Method / Volume Ernestina ection Time Received Time Specimen (Source) BONE MARROW SPECIMEN / Unknown 02/14/2023 3:11 PM CDT 02/14/2023 3:26 PM CDT Bone Marrow Morena Wilkerson BONE MARROW ORDERABLES SITE SPECIALIST-[facility]/ZIP Code Phone Number Performing [place] [address], [facility] PATH AND [address] [facility] LAB MEDICINE * BONE MARROW ASP (02/14/2023 3:11 PM CDT) Pathologist Signature Component Value Ref Test Method Analysis Performed A t Range Time Bone Marrow Asp SEE 02/15/2023 [facility] DEPT PAT H AND PATHOLOGY 7:52 AM LAB MEDICINE REPORT CDT Anatomical Location / Laterality Collection Method / Volume Ernestina ection Time Received Time Specimen (Source) BONE MARROW SPECIMEN / Unknown 02/14/2023 3:11 PM CDT 02/14/2023 3:26 PM CDT Bone Marrow Morena Wilkerson BONE MARROW ORDERABLES SITE SPECIALIST-PHYSIOTHERAPY PRACTICE MANAGER City/State/ZIP Code Phone Number Performing [place] [address], [facility] DEPT PATH AND [address] LAB MEDICINE * (ABNORMAL) POC GLUCOSE (02/14/2023 11:21 AM CDT) Pathologist Signature Component Value Ref Test Method Analysis Performed A t Range Time Glucose, POC 106 (H) 70 - 100 02/14/2023 [facility] [place] GE MG/DL 11:22 AM T[facility] A CDT Anatomical Location / Laterality Collection Method / Volume Ernestina ection Time Received Time Specimen (Source) 02/14/2023 11:21 AM CDT 02/15/20 11:22 AM CDT Britt Stevens MD OTHER LABORATORY City/State/ZIP Code Phone Number Performing Address Organization [address] A * (ABNORMAL) POC GLUCOSE (02/14/2023 8:15 AM CDT) Pathologist Signature Component Value Ref Test Method Analysis Performed A t Range Time Glucose, POC 105 (H) 70 - 100 02/14/2023 [facility] GE MG/DL 8:17 AM TOWER A CDT Anatomical Location / Laterality Collection Method / Volume Ernestina ection Time Received Time Specimen (Source) 02/14/2023 8:15 AM CDT 02/15/20 8:17 AM CDT Britt Stevens MD OTHER LABORATORY City/State/ZIP Code Phone Number Performing Address Organization [address] A * URIC ACID (02/14/2023 4:41 AM CDT) Pathologist Signature Component Value Ref Test Method Analysis Performed A t Range Time Uric Acid 5.0 4.0 - 02/14/2023 [facility] DEPT PAT H AND 8.0 6:16 AM LAB MEDICINE MG/DL CDT Anatomical Location / Laterality Collection Method / Volume Ernestina ection Time Received Time Specimen (Source) BLOOD / Unknown 02/14/2023 4:41 AM CDT 02/15/20 4:42 AM CDT Virgen Hill LABORATORY ORDERABLES SITE SPECIALIST-PHYSIOTHERAPY PRACTICE MANAGER City/State/ZIP Code Phone Number Performing [place] [address], [facility] DE[facility] PATH AND [address] LAB MEDICINE * FIBRINOGEN (02/14/2023 4:41 AM CDT) Pathologist Signature Component Value Ref Test Method Analysis Performed A t Range Time Fibrinogen 257 200 - 02/14/2023 [facility] DEPT PAT H AND 400 7:01 AM LAB MEDICINE MG/DL CDT Anatomical Location / Laterality Collection Method / Volume Ernestina ection Time Received Time Specimen (Source) BLOOD / Unknown 02/14/2023 4:41 AM CDT 02/15/20 4:42 AM CDT Virgen Burkett [place] LABORATORY ORDERABLES [facility]/State/ZIP Code Phone Number Performing [place] [address], [employer] DEPT PATH AND [address] [facility] * PHOSPHORUS CELLULAR THERAPEUTICS (02/14/2023 4:41 AM CDT) Pathologist Signature Component Value Ref Test Method Analysis Performed A t Range Time Phosphorus 3.7 2.0 - 02/14/2023 [facility] DEPT PAT H AND 4.5 6:16 AM LAB MEDICINE MG/DL CDT Anatomical Location / Laterality Collection Method / Volume Ernestina ection Time Received Time Specimen (Source) BLOOD / Unknown 02/14/2023 4:41 AM CDT 02/15/20 4:42 AM CDT Virgen Burkett [place] LABORATORY ORDERABLES S[facility] SPECIALIST[facility]/ZIP Code Phone Number Performing Address Organization [address] [employer] [facility] * MAGNESIUM CELLULAR THERAPEUTICS (02/14/2023 4:41 AM CDT) Pathologist Signature Component Value Ref Test Method Analysis Performed A t Range Time Magnesium 1.9 1.6 - 02/14/2023 [facility] DEPT PAT H AND 2.6 6:16 AM LAB MEDICINE mg/dL CDT Anatomical Location / Laterality Collection Method / Volume Ernestina ection Time Received Time Specimen (Source) BLOOD / Unknown 02/14/2023 4:41 AM CDT 02/15/20 4:42 AM CDT Virgen Burkett [place] LABORATORY ORDERABLES S[facility] SPECIALISTHigh[facility]/ZIP Code Phone Number Performing [place] [address], [employer] [facility] AND [address] [facility] MEDICINE * COMPREHENSIVE METABOLIC PANEL CELLULAR THERAPEUTICS (02/14/2023 4:41 AM CDT) Pathologist Signature Component Value Ref Test Method Analysis Performed A t Range Time Sodium 138 137 - 02/14/2023 [facility] DEPT PAT H AND 147 6:16 AM LAB MEDICINE MMOL/L CDT Potassium 3.6 3.5 - 02/14/2023 [facility] DEPT PAT H AND 5.1 6:16 AM LAB MEDICINE MMOL/L CDT Chloride 104 98 - 110 02/14/2023 [facility] DEPT PAT H AND MMOL/L 6:16 AM LAB MEDICINE CDT Glucose 99 70 - 100 02/14/2023 [facility] DEPT PAT H AND MG/DL 6:16 AM LAB MEDICINE CDT Blood Urea Nitrogen 19 7 - 25 02/14/2023 [facility] DEPT PATH AND MG/DL 6:16 AM LAB MEDICINE CDT Creatinine 1.16 0.4 - 02/14/2023 [facility] DEPT PAT H AND 1.24 6:16 AM LAB MEDICINE MG/DL CDT Calcium 9.4 8.5 - 02/14/2023 [facility] DEPT PAT H AND 10.6 6:16 AM LAB MEDICINE MG/DL CDT Total Protein 6.2 6.0 - 02/14/2023 [facility] DEPT P ATH AND 8.0 G/DL 6:16 AM LAB MEDICINE CDT Total Bilirubin 1.1 0.3 - 02/14/2023 [facility] DEPT PATH AND 1.2 6:16 AM LAB MEDICINE MG/DL CDT Albumin 3.7 3.5 - 02/14/2023 [facility] DEPT PAT H AND 5.0 G/DL 6:16 AM LAB MEDICINE CDT Alk Phosphatase 38 25 - 110 02/14/2023 [facility] DEPT PATH AND U/L 6:16 AM LAB MEDICINE CDT AST (SGOT) 17 7 - 40 02/14/2023 [facility] DEPT PAT H AND U/L 6:16 AM LAB MEDICINE CDT CO2 25 21 - 30 02/14/2023 [facility] DEPT PAT H AND MMOL/L 6:16 AM LAB MEDICINE CDT ALT (SGPT) 7 7 - 56 02/14/2023 [facility] DEPT PAT H AND U/L 6:16 AM LAB MEDICINE CDT Anion Gap 9 3 - 12 02/14/2023 [facility] DEPT PAT H AND 6:16 AM LAB MEDICINE CDT eGFR >60 >60 02/14/2023 [facility] DEPT PAT H AND mL/min 6:16 AM LAB MEDICINE CDT Comment: eGFR calculated using the CKD-EPIcr_R equation Anatomical Location / Laterality Collection Method / Volume Ernestina ection Time Received Time Specimen (Source) BLOOD / Unknown 02/14/2023 4:41 AM CDT 02/15/20 4:[address] [facility] LABORATORY ORDERABLES [facility] Code Phone Number Performing [place] [address], [employer] DEPT PATH AND [address] [facility] LAB MEDICINE * (ABNORMAL) PTT (APTT) (02/14/2023 4:41 AM CDT) Pathologist Signature Component Value Ref Test Method Analysis Performed A t Range Time APTT 37.7 (H) 24.0 - 02/14/2023 [facility] DEPT PAT H AND 36.5 SEC 7:01 AM LAB MEDICINE CDT Anatomical Location / Laterality Collection Method / Volume Ernestina ection Time Received Time Specimen (Source) BLOOD / Unknown 02/14/2023 4:41 AM CDT 02/15/20 4:[address] [facility] LABORATORY ORDERABLES [facility] Phone Number Performing [place] [address], [employer] [facility] AND [address] [facility] LAB MEDICINE * (ABNORMAL) PROTIME INR (PT) (02/14/2023 4:41 AM CDT) Pathologist Signature Component Value Ref Test Method Analysis Performed A t Range Time Protime 20.8 (H) 9.5 - 02/14/2023 [facility] DEPT PAT H AND 14.2 SEC 7:01 AM LAB MEDICINE CDT INR 1.9 (H) 0.8 - 02/14/2023 [facility] DEPT PAT H AND 1.2 7:01 AM LAB MEDICINE CDT Anatomical Location / Laterality Collection Method / Volume Ernestina ection Time Received Time Specimen (Source) BLOOD / Unknown 02/14/2023 4:41 AM CDT 02/15/20 4:[address] [facility] LABORATORY ORDERABLES [facility]/State/ZIP Code Phone Number Performing [place] [address], [facility] DEPT PATH AND [address] [facility]. LAB MEDICINE * (ABNORMAL) CBC AND DIFF CELLULAR THERAPEUTICS (02/14/2023 4:41 AM CDT) Pathologist Signature Component Value Ref Test Method Analysis Performed A t Range Time White Blood Cells 17.1 (H) 4.5 - 02/14/2023 [facility] DE PT PATH AND 11.0 6:08 AM LAB MEDICINE K/UL CDT RBC 2.50 (L) 4.4 - 02/14/2023 [facility] DEPT PAT H AND 5.5 M/UL 6:08 AM LAB MEDICINE CDT Hemoglobin 8.6 (L) 13.5 - 02/14/2023 [facility] DEPT PAT H AND 16.5 6:08 AM LAB MEDICINE GM/DL CDT Hematocrit 26.0 (L) 40 - 50 02/14/2023 [facility] DEPT PAT H AND % 6:08 AM LAB MEDICINE CDT MCV 104.0 (H) 80 - 100 02/14/2023 [facility] DEPT PAT H AND FL 6:08 AM LAB MEDICINE CDT MCH 34.6 (H) 26 - 34 02/14/2023 [facility] DEPT PAT H AND PG 6:08 AM LAB MEDICINE CDT MCHC 33.2 32.0 - 02/14/2023 [facility] DEPT PAT H AND 36.0 6:08 AM LAB MEDICINE G/DL CDT RDW 17.8 (H) 11 - 15 02/14/2023 [facility] DEPT PAT H AND % 6:08 AM LAB MEDICINE CDT Platelet Count 44 (L) 150 - 02/14/2023 [facility] DEPT PATH AND 400 K/UL 6:08 AM LAB MEDICINE CDT MPV 8.8 7 - 11 02/14/2023 [facility] DEPT PAT H AND FL 6:08 AM LAB MEDICINE CDT Segmented 6 (L) 41 - 77 02/14/2023 [facility] DEPT PAT H AND Neutrophils % 8:34 AM LAB MEDICINE CDT Lymphocytes 23 (L) 24 - 44 02/14/2023 [facility] DEPT PAT H AND % 8:34 AM LAB MEDICINE CDT Monocytes 16 (H) 4 - 12 % 02/14/2023 [facility] DEPT PAT H AND 8:34 AM LAB MEDICINE CDT Other Cells 55 % 02/14/2023 [facility] DEPT PAT H AND 8:34 AM LAB MEDICINE CDT Comment: OTHERS ARE BLASTS ANISO PRESENT 02/14/2023 [facility] DEPT PATH AND 8:34 AM LAB MEDICINE CDT POLY PRESENT 02/14/2023 [facility] DEPT PATH AND 8:34 AM LAB MEDICINE CDT Ovalocyte PRESENT 02/14/2023 [facility] DEPT PATH AND 8:34 AM LAB MEDICINE CDT Platelet Estimate MKD DEC 02/14/2023 [facility] DEPT P ATH AND 8:34 AM LAB MEDICINE CDT Absolute Neutrophil 1.03 (L) 1.8 - 02/14/2023 [facility] DEPT PATH AND Count Manual 7.0 K/UL 8:34 AM LAB MEDICINE CDT Anatomical Location / Laterality Collection Method / Volume Ernestina ection Time Received Time Specimen (Source) BLOOD / Unknown 02/14/2023 4:41 AM CDT 02/15/20 4:42 AM CDT Virgen Hill LABORATORY ORDERABLES SITE SPECIALIST-PHYSIOTHERAPY PRACTICE MANAGER City/State/ZIP Code Phone Number Performing [place] [address], [employer] DEPT PATH AND [address] LAB MEDICINE * MRSA PNEUMONIA SCREEN (02/13/2023 9:29 PM CDT) Pathologist Signature Component Value Ref Test Method Analysis Performed A t Range Time MRSA Pneumonia PCR NOT DETECTED 02/14/2023 [facility] DEPT PATH AND The negative 1:14 AM LAB [...] CDT 02/13/2023 11:19 PM CDT Flocked Swab Britt Stevens MD MICROBIOLOGY ORDERABLES City/State/ZIP Code Phone Number Performing Address [place] [address], [employer] DEPT PATH AND [address] LAB MEDICINE * CHEST SINGLE VIEW (02/13/2023 9:08 PM CDT) Modality Anatomical Region Laterality Computed Radiography CHEST Anatomical Location / Laterality Collection Method / Volume Ernestina ection Time Received Time Specimen (Source) 02/14/2023 8:13 AM CDT Impressions 02/14/2023 8:14 AM CDT Cardiac silhouette enlargement. No consolidation. Finalized by Clarence Morris M.D. on 02/14/2023 8:14 AM. Dictated by Clarence Morris M.D. on 02/14/2023 8:13 AM. Narrative 02/14/2023 8:14 AM CDT CHEST SINGLE VIEW INDICATION: cough COMPARISON STUDY: None. FINDINGS: Support Devices: Left chest wall transvenous dual-chamber pacemaker leads. Lungs/Pleura: The lung volume is normal. Calcified granulomas. No consolidation. No pleural effusion or pneumothorax. Heart and Mediastinum: Cardiac silhouette enlargement. CABG. Aorta is calcified, indicating atherosclerosis. Procedure Note Clarence Morris MD - 02/14/2023 CHEST SINGLE VIEW INDICATION: cough COMPARISON STUDY: None. FINDINGS: Support Devices: Left chest wall transvenous dual-chamber pacemaker leads. Lungs/Pleura: The lung volume is normal. Calcified granulomas. No consolidation. No pleural effusion or pneumothorax. Heart and Mediastinum: Cardiac silhouette enlargement. CABG. Aorta is calcified, indicating atherosclerosis. IMPRESSION Cardiac silhouette enlargement. No consolidation. Finalized by Clarence Morris M.D. on 02/14/2023 8:14 AM. Dictated by Clarence Morris M.D. on 02/14/2023 8:13 AM. Uriel Saravia MD DIAGNOSTIC IMAGING ORDERABL ES * ECG 12-LEAD (02/13/2023 8:57 PM CDT) [...] 02/13/2023 10:10:10 PM Virgen Hill ECG ORDERABLES SITE SPECIALIST-PHYSIOTHERAPY PRACTICE MANAGER City/State/ZIP Code Phone Number Performing Address Organization GE MUSE * (ABNORMAL) POC GLUCOSE (02/13/2023 8:46 PM CDT) Pathologist Signature Component Value Ref Test Method Analysis Performed A t Range Time Glucose, POC 103 (H) 70 - 100 02/13/2023 [facility] GE MG/DL 8:58 PM [facility] CDT Anatomical Location / Laterality Collection Method / Volume Ernestina ection Time Received Time Specimen (Source) 02/13/2023 8:46 PM CDT 02/14/20 8:58 PM CDT Britt Stevens MD OTHER LABORATORY City/State/ZIP Code Phone Number Performing Address Organization [place], [place] [address] [place] [address] * FLOW CYTOMETRY (02/13/2023 8:31 PM CDT) Pathologist Signature Component Value Ref Test Method Analysis Performed A t Range Time PATHOLOGY REPORT THE [facility] 12:00 AM LAB MEDICINE [facility] [email or web address] barbara Yusuf MD, Director of Flow Cytometry Laboratory Department of Pathology and Laboratory Medicine [address] [place] [id number] Surgical Pathology Office: [phone] Fax: FLOW CYTOMETRY REPORT NAME: MARIBEL DON SURG PATH #: [id number] MR #: [id number] SPECIMEN CLASS: LC BILLING #: [id number] ALT ID #: LOCATION: [id number] DATE OF PROCEDURE: 02/13/2023 AGE: 82 SEX: M DATE RECEIVED: 02/14/2023 : 1940 TIME RECEIVED: 08:00 PHYSICIAN: BRITT STEVENS DATE OF REPORT: 02/14/2023 COPY TO: [...] and/or other material indicated in this report. +++Electroni melissa Signed Out By+++ corbin/02/14/2023 Interpreted by: Sorin [...] 0; CD20 = 0; cyCD22 = 1; mjGK88s = 0 [place] = 0; Lambda = 0; [place]:Lambda ratio = n/a T Cell Associated Markers (% Positive Cells): CD1a = 0; CD2 = 0; sCD3 = 0; cyCD3 = 0; CD4 = 0; CD5 = 0; CD7 = 98; CD8 = 0 CD4:CD8 ratio = n/a Miscellaneou s Markers (% Positive Cells): CD10 = 0; CD34 = 94; CD34+CD13+ = 93; CD34+CD117+ = 88; CD38 = 100; CD45 = 51; CD56 = 1; CD123 = 62; HLA-DR = 93; nTdT = 0 Cell Viability (%): n/a Number of Cells Analyzed: [id number] Total Number of Markers: 31 Summary of Marker Combinations : Dr/33/34/13/ 123/45/56/15 ; 117/34/64/11 b/45/14/11c; K/L/34/10/19 /45/38/20; 2/7/4/3/1a/4 5/5/8; nTdt/cy22/34 /cy3/cy79a/4 5/cyMPO/19 This test was developed and its performance characterist ics determined by the [facility] Flow Cytometry Laboratory. It has not been cleared or approved by the U.S. Food and Drug Administrati on (FDA). The FDA has determined that such clearance or approval is not necessary. Anatomical Location / Laterality Collection Method / Volume Ernestina ection Time Received Time Specimen (Source) 02/13/2023 8:31 PM CDT 02/15/20 23 8:00 AM CDT Britt Stevens MD PATHOLOGY/CYTOLOGY ORDERABL ES City/State/ZIP Code Phone Number Performing [place] [address], [facility] DEPT PATH AND [address] LAB MEDICINE * LEUKEMIA-LYMPHOMA PANEL BLOOD (02/13/2023 8:31 PM CDT) Pathologist Signature Component Value Ref Test Method Analysis Performed A t Range Time Leuk/Lymph SEE 02/14/2023 [facility] DEPT PATH AND Interpretation PATHOLOGY 6:49 AM LAB MEDICINE REPORT CDT Specimen/LLM BLOOD 02/14/2023 [facility] DEPT PATH AND 6:49 AM LAB MEDICINE CDT Anatomical Location / Laterality Collection Method / Volume Ernestina ection Time Received Time Specimen (Source) BLOOD / Unknown 02/13/2023 8:31 PM CDT 02/15/20 6:49 AM CDT Virgne M Sergio LABORATORY ORDERABLES SITE SPECIALIST-PHYSIOTHERAPY PRACTICE MANAGER City/State/ZIP Code Phone Number Performing [place] [address], [facility] DEPT PATH AND [address] LAB MEDICINE * HEMOGLOBIN A1C (02/13/2023 8:30 PM CDT) Pathologist Signature Component Value Ref Test Method Analysis Performed A t Range Time Hemoglobin A1C 5.0 4.0 - 02/14/2023 [facility] DEPT PATH AND 5.7 % 9:28 AM LAB MEDICINE CDT Comment: The ADA recommends that most patients with type 1 and type 2 diabetes maintain an A1c level <7%. Anatomical Location / Laterality Collection Method / Volume Ernestina ection Time Received Time Specimen (Source) 02/13/2023 8:30 PM CDT 02/14/20 8:59 PM CDT Virgen Barbara Sergio LABORATORY ORDERABLES SITE SPECIALIST-PHYSIOTHERAPY PRACTICE MANAGER [facility]/ZIP Code Phone Number Performing [place] [address], [employer] DEPT PATH AND [address] LAB [facility] * TP53 PCR ARRAY BLOOD (02/13/2023 8:30 PM CDT) Pathologist Signature Component Value Ref Test Method Analysis Performed A t Range Time TP53 PCR ARRAY Blood Patient 02/16/2023 [facility] Name: 12:29 PM JACOBY López Don Physician(s) : KINGA Kuhn Ordering Facility: [facility] Date of , Sex: 1940 , M Collection Date: 02/13/2023 Received Date: 02/14/2023 Report Date: 02/16/2023 [facility] Reference #: [id number] Pathology Case #: n/a Test Performed TP53 [...] wild type background. The Human TP53 Gene Track the Bet Somatic Mutation PCR Array allows the detection [...] during tumorigenesi s and cancer progression [PMID: [id number]]. Somatic mutations can occur as single mutations [...] decreased long-term survival after allogeneic transplants [PMIDs: 43299549; [id number]]. Determining TP53 status holds crucial value when determining treatment plans. Disclaimer This test was developed and its performance characterist ics determined by The [facility]. It has not been cleared or [...] laboratory testing. Technical component performed by the [facility] at [address] [place] [address]. CLIA # [id number]. Professional component performed by [facility] ([facility] at [address] [place] [address]. CLIA # [id number]. Signed by: Zach Dobson MD on 02/16/2023 Anatomical Location / Laterality Collection Method / Volume Ernestina ection Time Received Time Specimen (Source) 02/13/2023 8:30 PM CDT 02/14/20 8:59 PM CDT Virgen Hill LABORATORY ORDERABLES SITE SPECIALIST-PHYSIOTHERAPY PRACTICE MANAGER City/State/ZIP Code Phone Number Performing Address Organization REFERENCE LAB See results for address. * PERIPHERAL SMEAR (02/13/2023 8:30 PM CDT) Pathologist Signature Component Value Ref Test Method Analysis Performed A t Range Time Peripheral Smear OTHERS ARE 02/14/2023 [facility] DEPT PA TH AND BLASTS. SEE 10:37 AM LAB MEDICINE RESULTS OF CDT RECENT PERIPHERAL BLOOD FLOW CYTOMETRY ([id number]). Pathologist INTERPRETED 02/14/2023 [facility] DEPT PATH AND Signature BY AGUSTO 10:37 [...] 8:59 PM CDT Virgen Hill LABORATORY ORDERABLES SITE SPECIALIST-PHYSIOTHERAPY PRACTICE MANAGER City/State/ZIP Code Phone Number Performing [place] [address], [facility] DEPT PATH AND [address] LAB MEDICINE * (ABNORMAL) LDH-LACTATE DEHYDROGENASE (02/13/2023 8:30 PM CDT) Pathologist Signature Component Value Ref Test Method Analysis Performed A t Range Time Lactate 290 (H) 100 - 02/13/2023 [facility] DEPT PAT H AND Dehydrogenase 210 U/L 9:31 PM LAB MEDICINE CDT Anatomical Location / Laterality Collection Method / Volume Ernestina ection Time Received Time Specimen (Source) BLOOD / Unknown 02/13/2023 8:30 PM CDT 02/14/20 8:59 PM CDT Virgen Burkett [place] LABORATORY ORDERABLES [facility]/State/ZIP Code Phone Number Performing [place] [address], [employer] DEPT PATH AND [address] LAB MEDICINE * URIC ACID (02/13/2023 8:30 PM CDT) Pathologist Signature Component Value Ref Test Method Analysis Performed A t Range Time Uric Acid 5.4 4.0 - 02/13/2023 [facility] DEPT PAT H AND 8.0 9:31 PM LAB MEDICINE MG/DL CDT Anatomical Location / Laterality Collection Method / Volume Ernestina ection Time Received Time Specimen (Source) BLOOD / Unknown 02/13/2023 8:30 PM CDT 02/14/20 8:59 PM CDT [facility] ORDERABLES S[facility] SPECIALISTHigh[facility] Hospital/State/ZIP Code Phone Number Performing Address Organization [address] [employer] DEPT PATH AND [address] LAB MEDICINE * FIBRINOGEN (02/13/2023 8:30 PM CDT) Pathologist Signature Component Value Ref Test Method Analysis Performed A t Range Time Fibrinogen 251 200 - 02/13/2023 [facility] DEPT PAT H AND 400 9:33 PM LAB MEDICINE MG/DL CDT Anatomical Location / Laterality Collection Method / Volume Ernestina ection Time Received Time Specimen (Source) BLOOD / Unknown 02/13/2023 8:30 PM CDT 02/14/20 8:[address] [facility] LABORATORY ORDERABLES SITE SPECIALISTEncompass Health/State/ZIP Code Phone Number Performing [place] [address], [employer] DEPT PATH AND [address] LAB MEDICINE * PHOSPHORUS CELLULAR THERAPEUTICS (02/13/2023 8:30 PM CDT) Pathologist Signature Component Value Ref Test Method Analysis Performed A t Range Time Phosphorus 3.3 2.0 - 02/13/2023 [facility] DEPT PAT H AND 4.5 9:31 PM LAB MEDICINE MG/DL CDT Anatomical Location / Laterality Collection Method / Volume Ernestina ection Time Received Time Specimen (Source) BLOOD / Unknown 02/13/2023 8:30 PM CDT 02/14/20 8:[address] [facility] LABORATORY ORDERABLES SITE SPECIALISTEncompass Health/[facility]/ZIP Code Phone Number Performing [place] [address], [employer] DEPT PATH AND [address] LAB MEDICINE * MAGNESIUM CELLULAR THERAPEUTICS (02/13/2023 8:30 PM CDT) Pathologist Signature Component Value Ref Test Method Analysis Performed A t Range Time Magnesium 1.9 1.6 - 02/13/2023 [facility] DEPT PAT H AND 2.6 9:31 PM LAB MEDICINE mg/dL CDT Anatomical Location / Laterality Collection Method / Volume Ernestina ection Time Received Time Specimen (Source) BLOOD / Unknown 02/13/2023 8:30 PM CDT 02/14/20 8:59 PM CDT [facility]ORATORY ORDERABLES [facility]IST[facility]/ZIP Code Phone Number Performing Address Organization [address] [facility] DEPT PATH AND [address] LAB MEDICINE * (ABNORMAL) COMPREHENSIVE METABOLIC PANEL CELLULAR THERAPEUTICS (02/13/2023 8:30 PM CDT) Pathologist Signature Component Value Ref Test Method Analysis Performed A t Range Time Sodium 134 (L) 137 - 02/13/2023 [facility] DEPT PAT H AND 147 9:31 PM LAB MEDICINE MMOL/L CDT Potassium 3.8 3.5 - 02/13/2023 [facility] DEPT PAT H AND 5.1 9:31 PM LAB MEDICINE MMOL/L CDT Chloride 102 98 - 110 02/13/2023 [facility] DEPT PAT H AND MMOL/L 9:31 PM LAB MEDICINE CDT Glucose 95 70 - 100 02/13/2023 [facility] DEPT PAT H AND MG/DL 9:31 PM LAB MEDICINE CDT Blood Urea Nitrogen 20 7 - 25 02/13/2023 [facility] DEPT PATH AND MG/DL 9:31 PM LAB MEDICINE CDT Creatinine 1.40 (H) 0.4 - 02/13/2023 [facility] DEPT PAT H AND 1.24 9:31 PM LAB MEDICINE MG/DL CDT Calcium 9.4 8.5 - 02/13/2023 [facility] DEPT PAT H AND 10.6 9:31 PM LAB MEDICINE MG/DL CDT Total Protein 6.3 6.0 - 02/13/2023 [facility] DEPT P ATH AND 8.0 G/DL 9:31 PM LAB MEDICINE CDT Total Bilirubin 1.5 (H) 0.3 - 02/13/2023 [facility] DEPT PATH AND 1.2 9:31 PM LAB MEDICINE MG/DL CDT Albumin 3.7 3.5 - 02/13/2023 [facility] DEPT PAT H AND 5.0 G/DL 9:31 PM LAB MEDICINE CDT Alk Phosphatase 39 25 - 110 02/13/2023 [facility] DEPT PATH AND U/L 9:31 PM LAB MEDICINE CDT AST (SGOT) 19 7 - 40 02/13/2023 [facility] DEPT PAT H AND U/L 9:31 PM LAB MEDICINE CDT CO2 21 21 - 30 02/13/2023 [facility] DEPT PAT H AND MMOL/L 9:31 PM LAB MEDICINE CDT ALT (SGPT) 6 (L) 7 - 56 02/13/2023 [facility] DEPT PAT H AND U/L 9:31 PM LAB MEDICINE CDT Anion Gap 11 3 - 12 02/13/2023 [facility] DEPT PAT H AND 9:31 PM LAB MEDICINE CDT eGFR 50 (L) >60 02/13/2023 [facility] DEPT PAT H AND mL/min 9:31 PM LAB MEDICINE CDT Comment: eGFR calculated using the CKD-EPIcr_R equation Anatomical Location / Laterality Collection Method / Volume Ernestina ection Time Received Time Specimen (Source) BLOOD / Unknown 02/13/2023 8:30 PM CDT 02/14/20 8:59 PM CDT Virgen Hill LABORATORY ORDERABLES SITE SPECIALIST-PHYSIOTHERAPY PRACTICE MANAGER City/State/ZIP Code Phone Number Performing [place] [address], [facility] DEPT PATH AND [address] LAB MEDICINE * (ABNORMAL) PTT (APTT) (02/13/2023 8:30 PM CDT) Pathologist Signature Component Value Ref Test Method Analysis Performed A t Range Time APTT 37.7 (H) 24.0 - 02/13/2023 [facility] DEPT PAT H AND 36.5 SEC 9:33 PM LAB MEDICINE CDT Anatomical Location / Laterality Collection Method / Volume Ernestina ection Time Received Time Specimen (Source) BLOOD / Unknown 02/13/2023 8:30 PM CDT 02/14/20 23 8:59 PM CDT Virgen Burkett [place] LABORATORY ORDERABLES [facility]/ZIP Code Phone Number Performing Address Organization [address] [facility] DEPT PATH AND [address] LAB MEDICINE * (ABNORMAL) PROTIME INR (PT) (02/13/2023 8:30 PM CDT) Pathologist Signature Component Value Ref Test Method Analysis Performed A t Range Time Protime 25.6 (H) 9.5 - 02/13/2023 [facility] DEPT PAT H AND 14.2 SEC 9:33 PM LAB MEDICINE CDT INR 2.3 (H) 0.8 - 02/13/2023 [facility] DEPT PAT H AND 1.2 9:33 PM LAB MEDICINE CDT Anatomical Location / Laterality Collection Method / Volume Ernestina ection Time Received Time Specimen (Source) BLOOD / Unknown 02/13/2023 8:30 PM CDT 02/14/20 23 8:59 PM CDT Virgen Burkett [place] LABORATORY ORDERABLES [facility]/ZIP Code Phone Number Performing Address Organization [address] [facility] DEPT PATH AND [address] LAB MEDICINE * (ABNORMAL) CBC AND DIFF CELLULAR THERAPEUTICS (02/13/2023 8:30 PM CDT) Pathologist Signature Component Value Ref Test Method Analysis Performed A t Range Time White Blood Cells 16.2 (H) 4.5 - 02/13/2023 [facility] DE PT PATH AND 11.0 10:12 PM LAB MEDICINE K/UL CDT RBC 2.50 (L) 4.4 - 02/13/2023 [facility] DEPT PAT H AND 5.5 M/UL 10:12 PM LAB MEDICINE CDT Hemoglobin 8.5 (L) 13.5 - 02/13/2023 [facility] DEPT PAT H AND 16.5 10:12 PM LAB MEDICINE GM/DL CDT Hematocrit 25.8 (L) 40 - 50 02/13/2023 [facility] DEPT PAT H AND % 10:12 PM LAB MEDICINE CDT MCV 103.1 (H) 80 - 100 02/13/2023 [facility] DEPT PAT H AND FL 10:12 PM LAB MEDICINE CDT MCH 34.1 (H) 26 - 34 02/13/2023 [facility] DEPT PAT H AND PG 10:12 PM LAB MEDICINE CDT MCHC 33.1 32.0 - 02/13/2023 [facility] DEPT PAT H AND 36.0 10:12 PM LAB MEDICINE G/DL CDT RDW 17.0 (H) 11 - 15 02/13/2023 [facility] DEPT PAT H AND % 10:12 PM LAB MEDICINE CDT Platelet Count 54 (L) 150 - 02/13/2023 [facility] DEPT PATH AND 400 K/UL 10:12 PM LAB MEDICINE CDT MPV 10.0 7 - 11 02/13/2023 [facility] DEPT PAT H AND FL 10:12 PM LAB MEDICINE CDT Segmented 4 (L) 41 - 77 02/13/2023 [facility] DEPT PAT H AND Neutrophils % 10:12 PM LAB MEDICINE CDT Lymphocytes 28 24 - 44 02/13/2023 [facility] DEPT PAT H AND % 10:12 PM LAB MEDICINE CDT Monocytes 17 (H) 4 - 12 % 02/13/2023 [facility] DEPT PAT H AND 10:12 PM LAB MEDICINE CDT Eosinophil 1 0 - 5 % 02/13/2023 [facility] DEPT PAT H AND 10:12 PM LAB MEDICINE CDT Other Cells 50 % 02/13/2023 [facility] DEPT PAT H AND 10:12 PM LAB MEDICINE CDT Comment: OTHERS ARE BLASTS CRITICAL VALUE CALLED TO AND READ BACK BY/TIME/TECH HALEY VAUGHN/ ANISO PRESENT 02/13/2023 [facility] DEPT PATH AND 10:12 PM LAB MEDICINE CDT Platelet Estimate MOD DEC 02/13/2023 [facility] DEPT P ATH AND 10:12 PM LAB MEDICINE CDT Absolute Neutrophil 0.65 (L) 1.8 - 02/13/2023 [facility] DEPT PATH AND Count Manual 7.0 K/UL 10:12 PM LAB MEDICINE CDT Anatomical Location / Laterality Collection Method / Volume Ernestina ection Time Received Time Specimen (Source) BLOOD / Unknown 02/13/2023 8:30 PM CDT 02/14/20 8:59 PM CDT Virgen Hill LABORATORY ORDERABLES SITE SPECIALIST-PHYSIOTHERAPY PRACTICE MANAGER City/State/ZIP Code Phone Number Performing [place] [address], [facility] DEPT PATH AND [address] LAB MEDICINE * RVP VIRAL PANEL PCR (02/13/2023 8:28 PM CDT) Pathologist Signature Component Value Ref Test Method Analysis Performed A t Range Time Specimen Source Resp FLOCKED SWAB 02/14/2023 [facility] DEP T PATH AND Panel NASOPHARYNGE 2:01 AM LAB MEDICINE AL CDT Use of this test on specimens other than nasopharynge al swabs has not been cleared by the [place] Food and Drug Administrati on. The performance characterist ics were determined by the [facility]. Adenovirus NOT DETECTED DN-NOT 02/14/2023 [facility] DEPT PA TH AND DETECTED 2:01 AM LAB MEDICINE CDT Coronavirus 229E NOT DETECTED DN-NOT 02/14/2023 [facility] DE PT PATH AND DETECTED 2:01 AM LAB MEDICINE CDT Coronavirus HKU1 NOT DETECTED DN-NOT 02/14/2023 [facility] DE PT PATH AND DETECTED 2:01 AM LAB MEDICINE CDT Coronavirus NL63 NOT DETECTED DN-NOT 02/14/2023 [facility] DE PT PATH AND DETECTED 2:01 AM LAB MEDICINE CDT Coronavirus OC43 NOT DETECTED DN-NOT 02/14/2023 [facility] DE PT PATH AND DETECTED 2:01 AM LAB MEDICINE CDT SARS-CoV-2 NOT DETECTED DN-NOT 02/14/2023 [facility] DEPT PA TH AND DETECTED 2:01 AM LAB MEDICINE CDT Human NOT DETECTED DN-NOT 02/14/2023 [facility] DEPT PA TH AND Metapneumovirus DETECTED 2:01 AM LAB MEDICINE CDT Human NOT DETECTED DN-NOT 02/14/2023 [facility] DEPT PA TH AND Rhinovirus/ENTEROVIR DETECTED 2:01 AM LAB MEDI CINE US CDT Influenza A H1N1 NOT DETECTED DN-NOT 02/14/2023 [facility] DE PT PATH AND 2009 DETECTED 2:01 AM LAB MEDICINE CDT Influenza A H1 NOT DETECTED DN-NOT 02/14/2023 [facility] DEPT PATH AND DETECTED 2:01 AM LAB MEDICINE CDT Influenza A H3 NOT DETECTED DN-NOT 02/14/2023 [facility] DEPT PATH AND DETECTED 2:01 AM LAB MEDICINE CDT Influenza B NOT DETECTED DN-NOT 02/14/2023 [facility] DEPT PA [...] MEDICINE CDT RSV NOT DETECTED DN-NOT 02/14/2023 [facility] DEPT PA TH AND DETECTED 2:01 AM LAB MEDICINE CDT Bordetella NOT DETECTED DN-NOT 02/14/2023 [facility] DEPT PA TH AND parapertussis DETECTED 2:01 AM LAB MEDICINE CDT Bordetella pertussis NOT DETECTED DN-NOT 02/14/2023 [facility] DEPT PATH AND DETECTED 2:01 AM LAB MEDICINE CDT Chlamydia pneumoniae NOT DETECTED DN-NOT 02/14/2023 [facility] DEPT PATH AND DETECTED 2:01 AM LAB MEDICINE CDT Mycoplasma NOT DETECTED DN-NOT 02/14/2023 [facility] DEPT PA TH AND pneumoniae DETECTED 2:01 AM LAB MEDICINE CDT Anatomical Location / Laterality Collection Method / Volume Ernestina ection Time Received Time Specimen (Source) 02/13/2023 8:28 PM CDT 02/14/20 8:50 PM CDT Virgen Hill FLUID ORDERABLES SITE SPECIALIST-PHYSIOTHERAPY PRACTICE MANAGER City/State/ZIP Code Phone Number Performing [place] [address], [facility] DEPT PATH AND [address] [facility] LAB MEDICINE * COVID-19 (SARS-COV-2) PCR (02/13/2023 8:28 PM CDT) Pathologist Signature Component Value Ref Test Method Analysis Performed A t Range Time COVID-19 FLOCKED SWAB 02/13/2023 [facility] DEPT PATH AND (SARS-CoV-2) PCR NASOPHARYNGE 8:30 PM LAB MEDICINE Source AL CDT COVID-19 NOT DETECTED DN-NOT 02/13/2023 [facility] DEPT PA TH AND (SARS-CoV-2) PCR DETECTED [...] performance characteristics have been verified by the [facility] clinical laboratory. Fact sheet for providers: https://www.fda.gov/ media/953544/downloa d Fact sheet for patients: https://www.fda.gov/ media/707296/downloa d Anatomical Location / Laterality Collection Method / Volume Ernestina ection Time Received Time Specimen (Source) NASOPHARYNGEAL STRUCTURE / Unknown 02/13/2023 8 :28 PM CDT 02/13/2023 8:50 PM CDT Flocked Swab Virgen Hill MICROBIOLOGY ORDERABLES SITE SPECIALIST-PHYSIOTHERAPY PRACTICE MANAGER City/State/ZIP Code Phone Number Performing [place] [address], [facility] DEPT PATH AND [address] LAB MEDICINE * TELEMETRY STRIPS-SCAN (02/13/2023 [...] unspecified provider. 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 Gastro-esophageal reflux disease withou t esophagitis Esophageal reflux Hyperlipidemia Other and unspecified hyperlipidemia Type 2 diabetes mellitus (HCC) Type II or unspecified type diabetes me llitus without mention of complication, not stated as uncontrolled Moderate malnutrition (HCC) Malnutrition of moderate degree Constipation Unspecified constipation Chronic back pain Backache, unspecified Physical deconditioning Debility, unspecified * Advanced Care Planning/Resuscitation Status - Britt Stevens MD - 02/17/2023 9:58 AM CDT Advance Care Planning/Resuscitation Status Conversation Individuals present for advance care planning conversation: advanced practice pr estefany, attending physician, patient, patient surrogate decision maker and socia l worker Pertinent details of conversation (including direct quotes from patient or surro gate): Patient expresses he wants regular things done but does not want to be on machines like a ventilator. We discussed doing interventions up until cardiac a rrest/pulmonary arrest and not doing CPR. He and his both felt this was in his goals of care at this time. Outcome of conversation: DNAR - Full Intervention Does patient want a TPOPP form at discharge? Yes Documents completed as a result of this conversation: None Other documents present, which outline patient/surrogate wishes: None Attestation? I have spent a total of more than 16 minutes in [id number] discus cele of patient condition, prognosis, treatment goals, and/or advance care plann ing with the patient and/or surrogate decision makers. * Advanced Care Planning/Resuscitation Status - Britt Stevens MD - 02/14/2023 12:30 PM CDT Advance Care Planning/Resuscitation Status Conversation Individuals present for advance care planning conversation: advanced practice pr estefany, patient and patient surrogate decision maker Pertinent details of conversation (including direct quotes from patient or surro gate): patient would be ok with CPR/ventilator but is considering what direction he would tell his family if there was no hope of recovery. At this time wishes to be full code Outcome of conversation: Full Code Does patient want a TPOPP form at discharge? No Documents completed as a result of this conversation: None Other documents present, which outline patient/surrogate wishes: None Attestation? N/A * Advanced Care Planning/Resuscitation Status - Uriel Saravia MD - 02/14/2023 12:09 AM CDT Advance Care Planning/Resuscitation Status Conversation Individuals present for advance care planning conversation: attending physician and patient Pertinent details of conversation (including direct quotes from patient or surro gate): Patient states that he wants to be full code Outcome of conversation: Full Code Does patient want a TPOPP form at discharge? Need to assess Documents completed as a result of this conversation: None Other documents present, which outline patient/surrogate wishes: None Attestation? N/A documented in this encounter Administered Medications Action Date Dose Rate Site Medication Order MAR Action 02/17/2023 11:22 PM CDT 650 mg acetaminophen (TYLENOL) tablet 650 mg Given 650 mg, Oral, EVERY 6 HOURS PRN, Starting on Mon02/13/23 at 2019, Until Mon02/27/23 at 0955, Other..., temp > or equal to 38.1, Notify provider of fever prior to administering if first fever since hospitalization or if > 24 hours since last fever., Admission/Obs/Extended Recovery 03/01/2023 11:46 AM CDT 650 mg acetaminophen (TYLENOL) tablet 650 mg Given 650 mg, Oral, EVERY 6 HOURS PRN, Starting on Mon02/27/23 at 0955, Until Mon03/01/23 at 1400, Other..., Pain non-opioid: may be used alone or in combination with opioid analgesia, temp > or equal to 38.1. If giving for pain, please check temp prior to administration, Notify provider of feve r prior to administering if first fever since hospitalization or if > 24 hours since last fever., Admission/Obs/Extended Recovery 02/25/2023 9:50 AM CDT 400 mg acyclovir (ZOVIRAX) tablet 400 mg Given 400 mg, Oral, TWICE DAILY, First dose (after last modification) on Mon 3 at 0900, Until Discontinued 400 mg Given 02/24/2023 8:56 PM CDT 400 mg Given 02/24/2023 8:54 AM CDT 400 mg Given 02/23/2023 9:03 PM CDT 400 mg Given 02/23/2023 8:43 AM CDT 400 mg Given 02/22/2023 8:54 PM CDT 400 mg Given 02/22/2023 9:04 AM CDT 400 mg Given 02/21/2023 8:33 PM CDT 400 mg Given 02/21/2023 9:25 AM CDT 400 mg Given 02/20/2023 8:34 PM CDT 400 mg Given 02/20/2023 8:55 AM CDT 02/19/2023 8:22 PM CDT 800 mg acyclovir (ZOVIRAX) tablet 800 mg Given 800 mg, Oral, TWICE DAILY, First dose o n Mon02/14/23 at 1315, Until Discontinued 800 mg Given 02/19/2023 8:41 AM CDT 800 mg Given 02/18/2023 9:25 PM CDT 800 mg Given 02/18/2023 9:08 AM CDT 800 mg Given 02/17/2023 9:08 PM CDT 800 mg Given 02/17/2023 9:03 AM CDT 800 mg Given 02/16/2023 9:29 PM CDT 800 mg Given 02/15/2023 9:18 PM CDT 800 mg Given 02/15/2023 9:54 AM CDT 800 mg Given 02/14/2023 9:04 PM CDT 800 mg Given 02/14/2023 12:55 PM CDT 02/14/2023 8:14 AM CDT 100 mg allopurinoL (ZYLOPRIM) tablet 100 mg Given 100 mg, Oral, DAILY, First dose on Mon02/14/23 at 0900, Until Discontinued, Admission/Obs/Extended Recovery 02/13/2023 8:50 PM CDT 300 mg allopurinoL (ZYLOPRIM) tablet 300 mg Given 300 mg, Oral, ONCE, 1 dose, On Mon02/13/23 at 2030, Admission/Obs/Extended Recovery 02/26/2023 9:02 AM CDT 300 mg allopurinoL (ZYLOPRIM) tablet 300 mg Given 300 mg, Oral, DAILY, First dose (after last modification) on Mon02/15/23 at 0900, Until Discontinued, Admission/Obs/Extended Recovery 300 mg Given 02/25/2023 9:50 AM CDT 300 mg Given 02/24/2023 8:54 AM CDT 300 mg Given 02/23/2023 8:43 AM CDT 300 mg Given 02/22/2023 9:04 AM CDT 300 mg Given 02/21/2023 9:25 AM CDT 300 mg Given 02/20/2023 8:55 AM CDT 300 mg Given 02/19/2023 8:42 AM CDT 300 mg Given 02/18/2023 9:08 AM CDT 300 mg Given 02/17/2023 9:11 AM CDT 300 mg Given 02/16/2023 4:35 PM CDT 300 mg Given 02/15/2023 9:54 AM CDT 03/01/2023 9:06 AM CDT 1 drop artificial tears (PF) single dose Given ophthalmic solution 1 drop 1 drop, Both Eyes, TWICE DAILY, First dose on Mon02/26/23 at 1130, Until Discontinued 1 drop Given 02/28/2023 8:29 PM CDT 1 drop Given 02/28/2023 9:03 AM CDT 1 drop Given 02/27/2023 8:52 PM CDT 1 drop Given 02/27/2023 8:54 AM CDT 1 drop Given 02/26/2023 8:24 PM CDT 1 drop Given 02/26/2023 10:51 AM CDT 02/17/2023 2:07 PM CDT 162.5 mg Abdomina l Tissue azaCITIDine (VIDAZA) injection 162.5 mg Given 162.5 mg (rounded from 165 mg = 75 mg/m 2 2.2 m2 Treatment Plan BSA from Recorded weight), Subcutaneous, ONCE, 1 dose, On Mon02/17/23 at 1300, Rotate sites for each injection (thigh, abdomen, or uppe r arm). Administer subsequent injections at least 1 inch from previous injection sites. Doses greater than 3 mL should be divided equally into separate syringes and injected into 2 separate sites. Prior to administration, resuspend by inverting the syringe 2-3 times and then rolling the syringe between the palms for 30 seconds. - Invert syringe 2-3 times and roll vigorously between the palms for 30 seconds immediately prior to administration. - Short Stability: administer within 1 hour after reconstitution for immediate administration, or refrigerate for up to 8 hours and allow to come to room temperature for up to 30 minutes prior to administration . NURSING: Administration required by chemotherapy credentialed nurse when ordered for a cancer indication NOTE: This is a HIGH ALERT Medication. 02/18/2023 1:49 PM CDT 162.5 mg Abdomina l Tissue azaCITIDine (VIDAZA) injection 162.5 mg Given 162.5 mg (rounded from 165 mg = 75 mg/m 2 2.2 m2 Treatment Plan BSA from Recorded weight), Subcutaneous, ONCE, 1 dose, On 02/18/23 at 1300, Rotate sites for each injection (thigh, abdomen, or uppe r arm). Administer subsequent injections at least 1 inch from previous injection sites. Doses greater than 3 mL should be divided equally into separate syringes and injected into 2 separate sites. Prior to administration, resuspend by inverting the syringe 2-3 times and then rolling the syringe between the palms for 30 seconds. - Invert syringe 2-3 times and roll vigorously between the palms for 30 seconds immediately prior to administration. - Short Stability: administer within 1 hour after reconstitution for immediate administration, or refrigerate for up to 8 hours and allow to come to room temperature for up to 30 minutes prior to administration . NURSING: Administration required by chemotherapy credentialed nurse when ordered for a cancer indication NOTE: This is a HIGH ALERT Medication. 02/19/2023 1:19 PM CDT 162.5 mg Abdomen: RUQ azaCITIDine (VIDAZA) injection 162.5 mg Given 162.5 mg (rounded from 165 mg = 75 mg/m 2 2.2 m2 Treatment Plan BSA from Recorded weight), Subcutaneous, ONCE, 1 dose, On 02/19/23 at 1300, Rotate sites for each injection (thigh, abdomen, or uppe r arm). Administer subsequent injections at least 1 inch from previous injection sites. Doses greater than 3 mL should be divided equally into separate syringes and injected into 2 separate sites. Prior to administration, resuspend by inverting the syringe 2-3 times and then rolling the syringe between the palms for 30 seconds. - Invert syringe 2-3 times and roll vigorously between the palms for 30 seconds immediately prior to administration. - Short Stability: administer within 1 hour after reconstitution for immediate administration, or refrigerate for up to 8 hours and allow to come to room temperature for up to 30 minutes prior to administration . NURSING: Administration required by chemotherapy credentialed nurse when ordered for a cancer indication NOTE: This is a HIGH ALERT Medication. 02/20/2023 1:30 PM CDT 162.5 mg Abdomina l Tissue azaCITIDine (VIDAZA) injection 162.5 mg Given 162.5 mg (rounded from 165 mg = 75 mg/m 2 2.2 m2 Treatment Plan BSA from Recorded weight), Subcutaneous, ONCE, 1 dose, On Mon02/20/23 at 1300, Rotate sites for each injection (thigh, abdomen, or uppe r arm). Administer subsequent injections at least 1 inch from previous injection sites. Doses greater than 3 mL should be divided equally into separate syringes and injected into 2 separate sites. Prior to administration, resuspend by inverting the syringe 2-3 times and then rolling the syringe between the palms for 30 seconds. - Invert syringe 2-3 times and roll vigorously between the palms for 30 seconds immediately prior to administration. - Short Stability: administer within 1 hour after reconstitution for immediate administration, or refrigerate for up to 8 hours and allow to come to room temperature for up to 30 minutes prior to administration . NURSING: Administration required by chemotherapy credentialed nurse when ordered for a cancer indication NOTE: This is a HIGH ALERT Medication. 02/21/2023 12:55 PM CDT 162.5 mg Abdomen: RLQ azaCITIDine (VIDAZA) injection 162.5 mg Given 162.5 mg (rounded from 165 mg = 75 mg/m 2 2.2 m2 Treatment Plan BSA from Recorded weight), Subcutaneous, ONCE, 1 dose, On Mon02/21/23 at 1300, Rotate sites for each injection (thigh, abdomen, or uppe r arm). Administer subsequent injections at least 1 inch from previous injection sites. Doses greater than 3 mL should be divided equally into separate syringes and injected into 2 separate sites. Prior to administration, resuspend by inverting the syringe 2-3 times and then rolling the syringe between the palms for 30 seconds. - Invert syringe 2-3 times and roll vigorously between the palms for 30 seconds immediately prior to administration. - Short Stability: administer within 1 hour after reconstitution for immediate administration, or refrigerate for up to 8 hours and allow to come to room temperature for up to 30 minutes prior to administration . NURSING: Administration required by chemotherapy credentialed nurse when ordered for a cancer indication NOTE: This is a HIGH ALERT Medication. 02/22/2023 1:24 PM CDT 162.5 mg Abdomen: RLQ azaCITIDine (VIDAZA) injection 162.5 mg Given 162.5 mg (rounded from 165 mg = 75 mg/m 2 2.2 m2 Treatment Plan BSA from Recorded weight), Subcutaneous, ONCE, 1 dose, On Mon02/22/23 at 1300, Rotate sites for each injection (thigh, abdomen, or uppe r arm). Administer subsequent injections at least 1 inch from previous injection sites. Doses greater than 3 mL should be divided equally into separate syringes and injected into 2 separate sites. Prior to administration, resuspend by inverting the syringe 2-3 times and then rolling the syringe between the palms for 30 seconds. - Invert syringe 2-3 times and roll vigorously between the palms for 30 seconds immediately prior to administration. - Short Stability: administer within 1 hour after reconstitution for immediate administration, or refrigerate for up to 8 hours and allow to come to room temperature for up to 30 minutes prior to administration . NURSING: Administration required by chemotherapy credentialed nurse when ordered for a cancer indication NOTE: This is a HIGH ALERT Medication. 02/23/2023 1:04 PM CDT 162.5 mg Abdomina l Tissue azaCITIDine (VIDAZA) injection 162.5 mg Given 162.5 mg (rounded from 165 mg = 75 mg/m 2 2.2 m2 Treatment Plan BSA from Recorded weight), Subcutaneous, ONCE, 1 dose, On Mon02/23/23 at 1300, Rotate sites for each injection (thigh, abdomen, or uppe r arm). Administer subsequent injections at least 1 inch from previous injection sites. Doses greater than 3 mL should be divided equally into separate syringes and injected into 2 separate sites. Prior to administration, resuspend by inverting the syringe 2-3 times and then rolling the syringe between the palms for 30 seconds. - Invert syringe 2-3 times and roll vigorously between the palms for 30 seconds immediately prior to administration. - Short Stability: administer within 1 hour after reconstitution for immediate administration, or refrigerate for up to 8 hours and allow to come to room temperature for up to 30 minutes prior to administration . NURSING: Administration required by chemotherapy credentialed nurse when ordered for a cancer indication NOTE: This is a HIGH ALERT Medication. 02/23/2023 5:46 PM CDT 2 g 33.3 mL/hr cefepime (MAXIPIME) 2 g in sodium Given - New chloride 0.9% (NS) 100 mL IVPB Bag (MB+)(EXTENDED INFUSION) 2 g, Intravenous, 100 mL, Administer over 3 Hours, EVERY 12 HOURS, 5 doses, First dose on Mon02/21/23 at 1700, Last dose on Mon02/23/23 at 1700 2 g 33.3 mL/hr Given - New Bag 02/23/2023 5:45 AM CDT 2 g 33.3 mL/hr Given - New Bag 02/22/2023 4:22 PM CDT 2 g 33.3 mL/hr Given - New Bag 02/22/2023 4:06 AM CDT 2 g 33.3 mL/hr Given - New Bag 02/21/2023 4:17 PM CDT 02/18/2023 6:30 AM CDT 2 g 200 mL/hr cefepime (MAXIPIME) 2 g in sodium Given - New chloride 0.9% (NS) 100 mL IVPB (MB+) Bag 2 g, 100 mL, Intravenous, Administer over 30 Minutes, EVERY 8 HOURS, First dose on Mon02/17/23 at 2330, Until Discontinued 2 g 200 mL/hr Given - New Bag 02/17/2023 11:30 PM CDT 02/21/2023 5:17 AM CDT 2 g 200 mL/hr cefepime (MAXIPIME) 2 g in sodium Given - New chloride 0.9% (NS) 100 mL IVPB (MB+) Bag 2 g, 100 mL, Intravenous, Administer over 30 Minutes, EVERY 12 HOURS, First dose (after last modification) on Mon02/18/23 at 1830, Until Discontinued 2 g 200 mL/hr Given - New Bag 02/20/2023 5:26 PM CDT 2 g 200 mL/hr Given - New Bag 02/20/2023 5:54 AM CDT 2 g 200 mL/hr Given - New Bag 02/19/2023 5:10 PM CDT 2 g 200 mL/hr Given - New Bag 02/19/2023 6:19 AM CDT 2 g 200 mL/hr Given - New Bag 02/18/2023 5:48 PM CDT 02/14/2023 8:14 AM CDT 1,000 Units CHOLEcalciferoL (vitamin D3) tablet Given 1,000 Units 1,000 Units, Oral, DAILY, First dose on Mon02/14/23 at 0900, Until Discontinued , Admission/Obs/Extended Recovery 02/23/2023 9:02 PM CDT 1,000 Units CHOLEcalciferoL (vitamin D3) tablet Given 1,000 Units 1,000 Units, Oral, TWICE DAILY, First dose (after last modification) on Mon02/14/23 at 2100, Until Discontinued, Admission/Obs/Extended Recovery 1,000 Units Given 02/23/2023 8:43 AM CDT 1,000 Units Given 02/22/2023 8:54 PM CDT 1,000 Units Given 02/22/2023 9:03 AM CDT 1,000 Units Given 02/21/2023 8:33 PM CDT 1,000 Units Given 02/21/2023 9:26 AM CDT 1,000 Units Given 02/20/2023 8:34 PM CDT 1,000 Units Given 02/20/2023 8:54 AM CDT 1,000 Units Given 02/19/2023 8:22 PM CDT 1,000 Units Given 02/19/2023 8:41 AM CDT 1,000 Units Given 02/18/2023 9:25 PM CDT 1,000 Units Given 02/18/2023 9:08 AM CDT 1,000 Units Given 02/17/2023 9:08 PM CDT 1,000 Units Given 02/17/2023 9:03 AM CDT 1,000 Units Given 02/16/2023 9:29 PM CDT 1,000 Units Given 02/15/2023 9:18 PM CDT 1,000 Units Given 02/15/2023 9:54 AM CDT 1,000 Units Given 02/14/2023 9:04 PM CDT 02/24/2023 8:54 AM CDT 1,000 mcg cyanocobalamin (vitamin B-12) tablet Given 1,000 mcg 1,000 mcg, Oral, DAILY, First dose on Mon02/14/23 at 0900, Until Discontinued , Admission/Obs/Extended Recovery 1,000 mcg Given 02/23/2023 8:43 AM CDT 1,000 mcg Given 02/22/2023 9:03 AM CDT 1,000 mcg Given 02/21/2023 9:26 AM CDT 1,000 mcg Given 02/20/2023 8:54 AM CDT 1,000 mcg Given 02/19/2023 8:41 AM CDT 1,000 mcg Given 02/18/2023 9:08 AM CDT 1,000 mcg Given 02/17/2023 9:00 AM CDT 1,000 mcg Given 02/16/2023 4:35 PM CDT 1,000 mcg Given 02/15/2023 9:52 AM CDT 1,000 mcg Given 02/14/2023 8:15 AM CDT 02/28/2023 4:54 PM CDT 0.5 mg dutasteride (AVODART) capsule 0.5 mg Given 0.5 mg, Oral, DAILY WITH DINNER, First dose (after last modification) on Mon02/14/23 at 1700, Until Discontinued, Admission/Obs/Extended Recovery 0.5 mg Given 02/27/2023 6:04 PM CDT 0.5 mg Given 02/26/2023 5:05 PM CDT 0.5 mg Given 02/25/2023 4:29 PM CDT 0.5 mg Given 02/24/2023 5:26 PM CDT 0.5 mg Given 02/23/2023 5:46 PM CDT 0.5 mg Given 02/22/2023 4:22 PM CDT 0.5 mg Given 02/21/2023 4:17 PM CDT 0.5 mg Given 02/20/2023 8:37 PM CDT 0.5 mg Given 02/19/2023 5:12 PM CDT 0.5 mg Given 02/18/2023 5:48 PM CDT 0.5 mg Given 02/17/2023 5:15 PM CDT 0.5 mg Given 02/16/2023 4:35 PM CDT 0.5 mg Given 02/15/2023 4:35 PM CDT 0.5 mg Given 02/14/2023 4:38 PM CDT 02/14/2023 3:14 PM CDT 50 mcg fentaNYL citrate PF (SUBLIMAZE) Given injection 50 mcg 50 mcg, Intravenous, ONCE, 1 dose, On Mon02/14/23 at 1430, Please wait to giv e until instructed by SITE SPECIALIST prior to bone marrow biopsy 02/20/2023 11:37 AM CDT 20 mg furosemide (LASIX) injection 20 mg Given 20 mg, 2 mL, Intravenous, ONCE, 1 dose, On Mon02/20/23 at 1100, PROTECT FROM LIGHT 02/21/2023 12:45 PM CDT 20 mg furosemide (LASIX) injection 20 mg Given 20 mg, 2 mL, Intravenous, ONCE, 1 dose, On Mon02/21/23 at 1145, PROTECT FROM LIGHT 02/27/2023 10:16 AM CDT 20 mg furosemide (LASIX) injection 20 mg Given 20 mg, 2 mL, Intravenous, ONCE, 1 dose, On Mon02/27/23 at 1045, PROTECT FROM LIGHT 02/28/2023 9:04 AM CDT 20 mg furosemide (LASIX) injection 20 mg Given 20 mg, 2 mL, Intravenous, ONCE, 1 dose, On Mon02/28/23 at 0800, PROTECT FROM LIGHT 02/23/2023 1:25 PM CDT 40 mg furosemide (LASIX) injection 40 mg Given 40 mg, 4 mL, Intravenous, ONCE, 1 dose, On Mon02/23/23 at 1315, PROTECT FROM LIGHT 02/24/2023 12:57 PM CDT 40 mg furosemide (LASIX) injection 40 mg Given 40 mg, 4 mL, Intravenous, DAILY, First dose on Mon02/24/23 at 1315, Until Discontinued, PROTECT FROM LIGHT 02/15/2023 9:54 AM CDT 1,000 mg hydroxyurea (HYDREA) capsule 1,000 mg Given 1,000 mg, Oral, TWICE DAILY, 3 doses, First dose on Mon02/14/23 at 1415, Last dose on Mon02/15/23 at 0900, NOTE: This is a HIGH ALERT Medication. 1,000 mg Given 02/14/2023 9:04 PM CDT 1,000 mg Given 02/14/2023 2:31 PM CDT 02/16/2023 4:35 PM CDT 1,000 mg hydroxyurea (HYDREA) capsule 1,000 mg Given 1,000 mg, Oral, ONCE, 1 dose, On Mon02/16/23 at 1030, NOTE: This is a HIGH ALERT Medication. 02/17/2023 9:08 PM CDT 1,000 mg hydroxyurea (HYDREA) capsule 1,000 mg Given 1,000 mg, Oral, TWICE DAILY, 2 doses, First dose on Mon02/17/23 at 0900, Last dose on Mon02/17/23 at 2100, NOTE: This is a HIGH ALERT Medication. 1,000 mg Given 02/17/2023 9:04 AM CDT 02/18/2023 2:33 AM CDT 1,000 mL 999 mL/hr lactated ringers infusion Given - New 1,000 mL, 1,000 mL, Intravenous, at 999 Bag mL/hr, ONCE, 1 dose, On 02/18/23 at 0230 02/20/2023 11:37 AM CDT 20 g lactulose (GENERLAC) oral solution 20 g Given 20 g (30 mL), Oral, ONCE, 1 dose, On Mo n 02/20/23 at 1115 02/17/2023 9:04 AM CDT 750 mg levoFLOXacin (LEVAQUIN) tablet 750 mg Given 750 mg, Oral, DAILY, First dose on Mon02/14/23 at 1500, Until Discontinued, NURSING: Please educate patient and document: Do not give within 2 hours of antacids, magnesium, calcium, iron, zinc, or vitamins containing these minerals. Hold tube feedings 1 hour before and 2 hours after dose. 750 mg Given 02/16/2023 4:35 PM CDT 750 mg Given 02/15/2023 9:52 AM CDT 750 mg Given 02/14/2023 2:31 PM CDT 02/25/2023 9:50 AM CDT 750 mg levoFLOXacin (LEVAQUIN) tablet 750 mg Given 750 mg, Oral, EVERY 24 HOURS, First dos e on Mon02/24/23 at 0900, Until Discontinued, NURSING: Please educate patient and document: Give 1 hour befor e or 2 hours after meals. If patient is receiving tube feedings, hold tube feedings 1 hour before and 2 hours afte r dose. Do not give within 2 hours of antacids, magnesium, calcium, iron, zinc, or vitamins containing these minerals. 750 mg Given 02/24/2023 8:54 AM CDT 02/14/2023 2:31 PM CDT 0.5 mg LORazepam (ATIVAN) tablet 0.5 mg Given 0.5 mg, Oral, ONCE PRN, 1 dose, Startin g on Mon02/14/23 at 1305, Until Mon02/14/23 at 1431, Anxiety PO, Give for anxiety 20 minutes prior to bone marrow biopsy. 02/27/2023 6:40 AM CDT 4 g 12.5 mL/hr magnesium sulfate 4 g/50 mL IVPB Given - New 4 g, Intravenous, 50 mL, Administer over Bag 4 Hours, NEEDED, Starting on Mon02/15/23 at 1611, Until Mon03/01/23 at 1400, Other..., See admin instructions, Do not replace magnesium if serum creatinine is > 2.0. - If serum magnesium </= 2 mg/dL, give magnesium sulfate 4g IV over 4 hours. Recheck level in AM. - If serum magnesium </= 1.6 mg/dL, give magnesium sulfate 4g IV over 4 hours and recheck level at 1600. If serum magnesium is still </= 1.6 mg/dL give additional 4 grams of magnesium over 4 hours and recheck leve l with AM labs. 4 g 12.5 mL/hr Given - New Bag 02/24/2023 6:57 AM CDT 4 g 12.5 mL/hr Given - New Bag 02/18/2023 4:52 AM CDT 4 g 12.5 mL/hr Given - New Bag 02/16/2023 6:51 AM CDT melatonin (MELATIN) tablet 3 mg 3 mg, Oral, AT BEDTIME PRN, Starting on Mon02/18/23 at 1121, Until Mon03/01/23 a t 1400, Insomnia 02/18/2023 1:23 AM CDT 5 mg metoprolol (LOPRESSOR) injection 5 mg Given 5 mg, Intravenous, ONCE, 1 dose, On Mon02/18/23 at 0130, Hold for heart rate < 60 bpm, systolic BP < 100, or diastolic BP < 60 PROTECT FROM LIGHT 02/18/2023 1:54 AM CDT 5 mg metoprolol (LOPRESSOR) injection 5 mg Given 5 mg, Intravenous, ONCE, 1 dose, On Mon02/18/23 at 0200, Hold for heart rate < 60 bpm, systolic BP < 100, or diastolic BP < 60 PROTECT FROM LIGHT 02/15/2023 9:52 AM CDT 50 mg metoprolol tartrate (LOPRESSOR) tablet Given 50 mg 50 mg, Oral, TWICE DAILY, First dose (after last modification) on Mon 3 at 2100, Until Discontinued, Hold for heart rate < 60 bpm, systolic BP < 100, , Admission/Obs/Extended Recovery 02/21/2023 9:26 AM CDT 25 mg metoprolol tartrate tablet 25 mg Given 25 mg, Oral, TWICE DAILY, First dose (after last modification) on Mon 3 at 2100, Until Discontinued, Hold for heart rate < 60 bpm, systolic BP < 100, , Admission/Obs/Extended Recovery 25 mg Given 02/20/2023 8:34 PM CDT 25 mg Given 02/20/2023 8:55 AM CDT 25 mg Given 02/19/2023 8:22 PM CDT 25 mg Given 02/19/2023 8:42 AM CDT 25 mg Given 02/18/2023 9:25 PM CDT 25 mg Given 02/18/2023 10:51 AM CDT 25 mg Given 02/17/2023 9:08 PM CDT 25 mg Given 02/17/2023 9:00 AM CDT 25 mg Given 02/16/2023 9:29 PM CDT 25 mg Given 02/15/2023 9:18 PM CDT 03/01/2023 9:04 AM CDT 37.5 mg metoprolol tartrate tablet 37.5 mg Given 37.5 mg, Oral, TWICE DAILY, First dose (after last modification) on Mon 3 at 2100, Until Discontinued, Hold for heart rate < 60 bpm, systolic BP < 100, , Admission/Obs/Extended Recovery 37.5 mg Given 02/28/2023 8:21 PM CDT 37.5 mg Given 02/28/2023 9:03 AM CDT 37.5 mg Given 02/27/2023 8:51 PM CDT 37.5 mg Given 02/27/2023 8:54 AM CDT 37.5 mg Given 02/26/2023 8:24 PM CDT 37.5 mg Given 02/26/2023 9:02 AM CDT 37.5 mg Given 02/25/2023 9:09 PM CDT 37.5 mg Given 02/25/2023 9:50 AM CDT 37.5 mg Given 02/24/2023 8:56 PM CDT 37.5 mg Given 02/24/2023 8:54 AM CDT 37.5 mg Given 02/23/2023 9:02 PM CDT 37.5 mg Given 02/23/2023 8:43 AM CDT 37.5 mg Given 02/22/2023 8:54 PM CDT 37.5 mg Given 02/22/2023 9:04 AM CDT 37.5 mg Given 02/21/2023 8:33 PM CDT 02/17/2023 1:07 PM CDT 16 mg ondansetron (ZOFRAN ODT) rapid dissolve Given tablet 16 mg 16 mg, Oral, ONCE, 1 dose, On Mon02/17/23 at 1230, Place on tongue and allow to dissolve. 02/18/2023 12:53 PM CDT 16 mg ondansetron (ZOFRAN ODT) rapid dissolve Given tablet 16 mg 16 mg, Oral, ONCE, 1 dose, On 02/18/23 at 1230, Place on tongue and allow to dissolve. 02/19/2023 12:47 PM CDT 16 mg ondansetron (ZOFRAN ODT) rapid dissolve Given tablet 16 mg 16 mg, Oral, ONCE, 1 dose, On Mon02/19/23 at 1230, Place on tongue and allow to dissolve. 02/20/2023 11:37 AM CDT 16 mg ondansetron (ZOFRAN ODT) rapid dissolve Given tablet 16 mg 16 mg, Oral, ONCE, 1 dose, On Mon02/20/23 at 1230, Place on tongue and allow to dissolve. 02/21/2023 12:45 PM CDT 16 mg ondansetron (ZOFRAN ODT) rapid dissolve Given tablet 16 mg 16 mg, Oral, ONCE, 1 dose, On Mon02/21/23 at 1230, Place on tongue and allow to dissolve. 02/22/2023 12:50 PM CDT 16 mg ondansetron (ZOFRAN ODT) rapid dissolve Given tablet 16 mg 16 mg, Oral, ONCE, 1 dose, On Mon02/22/23 at 1230, Place on tongue and allow to dissolve. 02/23/2023 12:32 PM CDT 16 mg ondansetron (ZOFRAN ODT) rapid dissolve Given tablet 16 mg 16 mg, Oral, ONCE, 1 dose, On Radha 8/31/23 at 1230, Place on tongue and allow to dissolve. 02/18/2023 9:59 PM CDT 4 mg ondansetron HCL (PF) (ZOFRAN (PF)) Given injection 4 mg 4 mg, Intravenous, EVERY 6 HOURS PRN, Starting on 02/18/23 at 2150, Until 02/19/23 at 0949, Nausea/Vomiting Injectable 03/01/2023 9:12 AM CDT 15 mg oxybutynin XL (DITROPAN XL) tablet 15 mg Given 15 mg, Oral, DAILY, First dose on Mon02/14/23 at 0900, Until Discontinued, Do not crush or chew, Admission/Obs/Extended Recovery 15 mg Given 02/28/2023 9:03 AM CDT 15 mg Given 02/27/2023 8:54 AM CDT 15 mg Given 02/26/2023 9:14 AM CDT 15 mg Given 02/25/2023 9:58 AM CDT 15 mg Given 02/24/2023 9:14 AM CDT 15 mg Given 02/23/2023 8:43 AM CDT 15 mg Given 02/22/2023 9:05 AM CDT 15 mg Given 02/21/2023 9:25 AM CDT 15 mg Given 02/20/2023 9:04 AM CDT 15 mg Given 02/19/2023 8:42 AM CDT 15 mg Given 02/18/2023 9:08 AM CDT 15 mg Given 02/17/2023 9:04 AM CDT 15 mg Given 02/15/2023 9:52 AM CDT 15 mg Given 02/14/2023 9:27 AM CDT 03/01/2023 9:06 AM CDT [address] (PROTONIX) tablet 40 mg Given 40 mg, Oral, DAILY, First dose on Mon02/14/23 at 0900, Until Discontinued, Do not crush or chew tablet., Admission/Obs/Extended Recovery 40 mg Given 02/28/2023 9:03 AM CDT 40 mg Given 02/27/2023 8:53 AM CDT 40 mg Given 02/26/2023 9:02 AM CDT 40 mg Given 02/25/2023 9:50 AM CDT 40 mg Given 02/24/2023 8:54 AM CDT 40 mg Given 02/23/2023 8:43 AM CDT 40 mg Given 02/22/2023 9:04 AM CDT 40 mg Given 02/21/2023 9:26 AM CDT 40 mg Given 02/20/2023 8:55 AM CDT 40 mg Given 02/19/2023 8:42 AM CDT 40 mg Given 02/18/2023 9:08 AM CDT 40 mg Given 02/17/2023 9:03 AM CDT 40 mg Given 02/16/2023 4:35 PM CDT 40 mg Given 02/15/2023 9:52 AM CDT 40 mg Given 02/14/2023 8:15 AM CDT 02/15/2023 11:31 AM CDT 1.5 Diluted mL perflutren lipid microspheres (DEFINITY) Given injection 1-10 Diluted mL 1-10 Diluted mL, Intravenous, ONCE PRN, 1 dose, Starting on Mon02/15/23 at 0818 , Until Mon02/15/23 at 1131, For Procedure, A cold storage worker may only administer Definity through a saline lock. If IV is in use or a port, PICC, or central line is being used a nurse must administer. NOTE: This is a HIGH ALERT Medication., MAC Procedure Area Only - Medications 02/22/2023 9:03 AM CDT 10 mg phytonadione (vitamin K1) tablet 10 mg Given 10 mg, Oral, DAILY, 3 doses, First dose on Mon02/20/23 at 1130, Last dose on 02/22/23 at 0900 10 mg Given 02/21/2023 9:25 AM CDT 10 mg Given 02/20/2023 11:37 AM CDT 02/19/2023 8:42 AM CDT 17 g polyethylene glycol 3350 (MIRALAX) Given packet 17 g 17 g (1 packet), Oral, DAILY, First dos e on Mon02/17/23 at 1045, Until Discontinued, 8.5 GRAMS = 0.5 PACKET 17 GRAMS = 1 PACKET 34 GRAMS = 2 PACKETS 17 g Given 02/17/2023 12:07 PM CDT 02/27/2023 8:54 AM CDT 17 g polyethylene glycol 3350 (MIRALAX) Given packet 17 g 17 g (1 packet), Oral, TWICE DAILY, First dose (after last modification) on Mon02/19/23 at 2100, Until Discontinued , 8.5 GRAMS = 0.5 PACKET 17 GRAMS = 1 PACKET 34 GRAMS = 2 PACKETS 17 g Given 02/26/2023 9:03 AM CDT 17 g Given 02/25/2023 9:50 AM CDT 17 g Given 02/24/2023 8:54 AM CDT 17 g Given 02/23/2023 8:43 AM CDT 17 g Given 02/22/2023 9:10 AM CDT 17 g Given 02/20/2023 8:55 AM CDT 17 g Given 02/19/2023 8:22 PM CDT 02/15/2023 9:53 AM CDT 300 mg posaconazole EC (NOXAFIL) tablet 300 mg Given 300 mg, Oral, TWICE DAILY WITH MEALS, 2 doses, First dose on Mon02/14/23 at 1700, Last dose on Mon02/15/23 at 0800 300 mg Given 02/14/2023 4:37 PM CDT 02/25/2023 9:50 AM CDT 300 mg posaconazole EC (NOXAFIL) tablet 300 mg Given 300 mg, Oral, DAILY WITH BREAKFAST, First dose on Mon02/15/23 at 1700, Unti l Discontinued 300 mg Given 02/24/2023 8:54 AM CDT 300 mg Given 02/23/2023 8:43 AM CDT 300 mg Given 02/22/2023 9:03 AM CDT 300 mg Given 02/21/2023 9:26 AM CDT 300 mg Given 02/20/2023 8:54 AM CDT 300 mg Given 02/19/2023 8:41 AM CDT 300 mg Given 02/18/2023 9:08 AM CDT 300 mg Given 02/17/2023 9:00 AM CDT 300 mg Given 02/16/2023 4:35 PM CDT 300 mg Given 02/15/2023 4:35 PM CDT 02/24/2023 12:57 PM CDT 10 mEq 50 mL/hr potassium chloride in water IVPB 10 mEq Given - New 10 mEq, Intravenous, 50 mL, Administer Bag over 30-120 Minutes, NEEDED (CONSTRUCTION RECRUITER FROM RX), Starting on Mon02/15/23 at 1611, Until Mon03/01/23 at 1400, Other..., see admin instructions, HIGH GOAL Do not replace potassium chloride if serum creatinine is > 2.0. DOSE: (choose dose and select infusion time below) -For serum potassium 3.5 - 4 mEq/L, give KCI 40 mEq IV (10mEq x 4 doses) -For serum potassium < 3.5 mEq/L , give KCI 60 mEq IV over 6 hours (10 mEq x 6 doses) and check K+ 30 minutes afte r completion. If serum potassium is still < 3.5 mEq/L, give an additional 40 mEq IV (10mEq x 4 doses) x 1 series and NOTIFY PHSYCIAN/LUIS EDUARDO. INFUSION TIME: - Infuse each potassium chloride 10mEq IV over 2hr (5mEq/hr.), if: The patient has a peripheral line. -OR- The patient has other running sources of IV potassium. - Infuse each potassium chloride 10mEq IV over 1hr (10mEq/hr.), if: The patient is non-telemetry, and The patient has NO other running source s of IV potassium, and The patient has a central line. - Infuse each potassium chloride 10mEq IV over 30min (20mEq/hr.), if: The patient is on telemetry, and The patient has NO othe r running sources of IV potassium, and The patient has a central line. NOTE: This is a HIGH ALERT Medication. 10 mEq 100 mL/hr Given - New Bag 02/24/2023 12:09 PM CDT 10 mEq 100 mL/hr Given - New Bag 02/24/2023 11:26 AM CDT 10 mEq 100 mL/hr Given - New Bag 02/24/2023 8:54 AM CDT 03/01/2023 9:12 AM CDT 40 mEq potassium chloride SR (K-DUR) tablet 40 Given mEq 40 mEq, Oral, NEEDED (CONSTRUCTION RECRUITER FROM RX), Starting on Mon02/15/23 at 1611, Until Mon03/01/23 at 1400, Other..., see admin instructions, HIGH GOAL -For seru m potassium 3.5 - 4 mEq/L, give 40 mEq of PO potassium chloride if no GI distress or mucositis is present. -For serum potassium < 3.5 mEq/L, give 60 mEq of P O potassium chloride if no GI distress or mucositis is present. Repeat chemistry at 1600. If serum potassium is < 3.5 mEq/L, give additional 40 mEq of potassium chloride x 1, if no GI distress or mucositis is present and NOTIFY PHYSICIAN/LUIS EDUARDO. Give with meal or full glass of water 40 mEq Given 02/21/2023 9:25 AM CDT 40 mEq Given 02/17/2023 9:29 AM CDT 40 mEq Given 02/16/2023 4:35 PM CDT 02/25/2023 5:59 AM CDT 16 mmol 63 mL/hr potassium phosphate 16 mmol in dextrose Given - New 5% (D5W) 250 mL IVPB Bag 16 mmol, Intravenous, 250 mL, Administe r over 4 Hours, ONCE, 1 dose, On 02/25/23 at 0530, Each 10mM K Phos delivers 14.7meq K+ NOTE: This is a HIG H ALERT Medication. 02/16/2023 12:51 PM CDT 0.4 mg regadenoson (LEXISCAN) injection 0.4 mg Given 0.4 mg, Intravenous, ONCE, 1 dose, On Radha 02/16/23 at 1330, Inject 0.4 mg Regadenoson IV over 10 to 15 seconds, flush with 10 mL 0.9% Sodium Chloride solution IV over 10-20 seconds., MAC Procedure Area Only - Medications 02/16/2023 2:56 PM CDT 19.8 millicuries RP DX Tc-99m tetrofosmin (MYOVIEW) Given injection 18 millicurie 18 millicurie, Intravenous, ONCE, 1 dose, On Radha 02/16/23 at 1700, MAC Procedure Area Only - Medications 02/16/2023 1:16 PM CDT 6.6 millicuries RP DX Tc-99m tetrofosmin (MYOVIEW) Given injection 6 millicurie 6 millicurie, Intravenous, ONCE, 1 dose , On Radha 02/16/23 at 1330, MAC Procedure Area Only - Medications 02/14/2023 6:30 PM CDT 50 mL/hr sodium chloride 0.9 % infusion Given - New 1,000 mL, Intravenous, at 50 mL/hr, Bag CONTINUOUS, Starting on 02/13/23 at 2030, Until Mon02/15/23 at 1229, Admission/Obs/Extended Recovery 50 mL/hr Dose/Rate Change 02/14/2023 2:33 PM CDT 100 mL/hr Given - New Bag 02/14/2023 6:47 AM CDT 100 mL/hr Given - New Bag 02/13/2023 8:49 PM CDT 02/27/2023 3:28 AM CDT 10 mL/hr sodium chloride 0.9 % TKO infusion Given Intravenous, at 10 mL/hr, NEEDED, Starting on Mon02/13/23 at 2019, Until Mon03/01/23 at 1400, Other..., Run as primary TKO with IV piggyback medications, Admission/Obs/Extended Recovery 10 mL/hr Given 02/26/2023 3:38 AM CDT 10 mL/hr Given 02/25/2023 9:06 PM CDT 10 mL/hr Given 02/25/2023 3:02 AM CDT 10 mL/hr Given 02/24/2023 8:55 AM CDT 10 mL/hr Given 02/23/2023 12:32 PM CDT 10 mL/hr Given 02/21/2023 4:17 PM CDT 10 mL/hr Given 02/20/2023 5:56 AM CDT 10 mL/hr Given 02/18/2023 9:37 PM CDT 10 mL/hr Given 02/17/2023 11:32 PM CDT 03/01/2023 9:08 AM CDT 20 mL sodium chloride PF 0.9% flush 10-20 mL Given 10-20 mL, Flush, FLUSH DAILY DIRECTED, First dose on Mon02/17/23 at 1730, Until Discontinued, Flush prior t o and following medication administration . For inpatients, ensure all lumens are flushed every 24 hours. Flush prior to blood collection and after obtaining blood specimen, ensuring blood is cleared from needless connectors (up to 20mL) 20 mL Given 02/28/2023 9:04 AM CDT 20 mL Given 02/27/2023 9:05 AM CDT 20 mL Given 02/26/2023 9:03 AM CDT 10 mL Given 02/25/2023 10:07 AM CDT 10 mL Given 02/23/2023 8:44 AM CDT 10 mL Given 02/22/2023 9:10 AM CDT 10 mL Given 02/21/2023 9:27 AM CDT 10 mL Given 02/20/2023 8:55 AM CDT 10 mL Given 02/19/2023 8:43 AM CDT 02/23/2023 10:52 AM CDT 30 mmol 63 mL/hr sodium phosphate 30 mmol in dextrose 5% Given - New (D5W) 250 mL IVPB Bag 30 mmol, Intravenous, 250 mL, Administe r over 4 Hours, ONCE, 1 dose, On Radha 02/23/23 at 1000 02/28/2023 4:54 PM CDT 0.4 mg tamsulosin (FLOMAX) capsule 0.4 mg Given 0.4 mg, Oral, DAILY WITH DINNER, First dose (after last modification) on Mon02/14/23 at 1700, Until Discontinued, Admission/Obs/Extended Recovery 0.4 mg Given 02/27/2023 6:04 PM CDT 0.4 mg Given 02/26/2023 5:05 PM CDT 0.4 mg Given 02/25/2023 4:29 PM CDT 0.4 mg Given 02/24/2023 5:26 PM CDT 0.4 mg Given 02/23/2023 5:46 PM CDT 0.4 mg Given 02/22/2023 4:22 PM CDT 0.4 mg Given 02/21/2023 4:17 PM CDT 0.4 mg Given 02/20/2023 5:27 PM CDT 0.4 mg Given 02/19/2023 5:12 PM CDT 0.4 mg Given 02/18/2023 5:48 PM CDT 0.4 mg Given 02/17/2023 5:15 PM CDT 0.4 mg Given 02/16/2023 4:35 PM CDT 0.4 mg Given 02/15/2023 4:35 PM CDT 0.4 mg Given 02/14/2023 4:37 PM CDT documented in this encounter Discontinued Medications Start Date End Date Medication Sig Discontinue Reason 08/19/2022 02/13/2023 losartan (COZAAR) 100 mg Take one Error tablet tablet by mouth daily. 02/17/2023 02/28/2023 posaconazole EC (NOXAFIL) Take three 100 mg tablet tablets by mouth daily with breakfast. Take with food. 03/01/2023 SITagliptin phosphate Take one (JANUVIA) 100 mg tablet tablet by mouth daily. 03/01/2023 metoprolol tartrate Take one (LOPRESSOR) 100 mg tablet tablet by mouth twice daily. 03/01/2023 chlorthalidone (HYGROTON) Take 25 mg tablet one-half tablet by mouth daily. 03/01/2023 CHOLEcalciferoL (vitamin Take one D3) 1,000 units tablet tablet by mouth twice daily. 03/01/2023 cyanocobalamin (vitamin Take one B-12) 1,000 mcg tablet tablet by mouth daily. 03/01/2023 losartan (COZAAR) 100 mg Take one tablet tablet by mouth daily. 02/28/2023 apixaban (ELIQUIS) 5 mg Take one Reorder tablet tablet by mouth twice daily. 02/28/2023 aspirin 81 mg chewable Chew one Reorder tablet tablet by mouth daily. documented as of this encounter Historical Medications * This list may reflect changes made after this encounter. Start Date End Date Medication Sig Dispensed Refills vitamins, multiple cap Take one 0 capsule by mouth daily. dutasteride-tamsulosin ER Take one 0 (LESLEY) 0.5-0.4 mg capsule by capsule mouth daily with dinner. evolocumab (REPATHA Inject 3.5 mL 0 PUSHTRONIX) 420 mg/3.5 mL under the INFUSOR CARTRIDGE skin every 30 days. Last received week of 02/06/2023 oxybutynin XL (DITROPAN Take one 0 XL) 15 mg tablet tablet by mouth daily. omeprazole DR (PRILOSEC) Take one 0 20 mg capsule capsule by mouth daily before breakfast. 03/01/2023 losartan (COZAAR) 100 mg Take one 0 tablet tablet by mouth daily. 03/01/2023 cyanocobalamin (vitamin Take one 0 B-12) 1,000 mcg tablet tablet by mouth daily. 03/01/2023 CHOLEcalciferoL (vitamin Take one 0 D3) 1,000 units tablet tablet by mouth twice daily. 03/01/2023 chlorthalidone (HYGROTON) Take one-half 0 25 mg tablet tablet by mouth daily. 02/28/2023 aspirin 81 mg chewable Chew one 0 tablet tablet by mouth daily. 02/28/2023 apixaban (ELIQUIS) 5 mg Take one 0 tablet tablet by mouth twice daily. 03/01/2023 metoprolol tartrate Take one 0 (LOPRESSOR) 100 mg tablet tablet by mouth twice daily. 03/01/2023 SITagliptin phosphate Take one 90 tablet 3 (JANUVIA) 100 mg tablet tablet by mouth daily. 08/19/2022 02/13/2023 losartan (COZAAR) 100 mg Take one 90 tablet 4 tablet tablet by mouth daily. added in this encounter Active and Recently Administered Medications Times are shown in CDT. 02/28/2023 03/01/2023 Medication Order 02/27/2023 0903 (Given - Provider: Radha vang RN)2028 (Given - Provider: Quinten Stanford RN) 09 (Given - Provider: Radha vang RN) artificial tears (PF) single dose 0854 (Given - ophthalmic solution 1 drop Provider: Kaci 1 drop, Both Eyes, TWICE DAILY, First Sami RN)2051 (Given dose on Mon02/26/23 at 1130, Until - Provider: Arleth Christiansen RN) 165 (Given - Provider: Radha vang RN) dutasteride (AVODART) capsule 0.5 180 (Given - mg(Linked Group 1) Provider: Kaci 0.5 mg, Oral, DAILY WITH DINNER, First Sami RN) dose (after last modification) on Mon02/14/23 at 1700, Until Discontinued, Admission/Obs/Extended Recovery furosemide (LASIX) injection 20 mg 1016 (Given - (COMPLETED) Provider: Kaci 20 mg, 2 mL, Intravenous, ONCE, 1 dose, HALEY Gallardo) On Mon02/27/23 at 1045, PROTECT FROM LIGHT 0904 (Given - Provider: Radha vang RN) furosemide (LASIX) injection 20 mg (COMPLETED) 20 mg, 2 mL, Intravenous, ONCE, 1 dose, On Mon02/28/23 at 0800, PROTECT FROM LIGHT 0903 (Given - Provider: Radha vang RN)2020 (Given - Provider: Quinten Stanford RN) 09 (Given - Provider: Radha vang RN) metoprolol tartrate tablet 37.5 mg 0854 (Given - 37.5 mg, Oral, TWICE DAILY, First dose Provider: Bailey england (after last modification) on Mon02/21/23 HALEY Gallardo)20 51 (Given at 2100, Until Discontinued, Hold for - Provider: Cynthia butler heart rate < 60 bpm, systolic BP < 100, HALEY Christiansen) , Admission/Obs/Extended Recovery 09 (Given - Provider: Radha vang RN) 09 (Given - Provider: Radha vang RN) oxybutynin XL (DITROPAN XL) tablet 15 mg 0854 (Given - 15 mg, Oral, DAILY, First dose on Mon Provider: Radha jc 02/14/23 at 0900, Until Discontinued, Do Sami RN) not crush or chew, Admission/Obs/Extended Recovery 09 (Given - Provider: Radha vang RN) 09 (Given - Provider: Radha vang RN) pantoprazole DR (PROTONIX) tablet 40 mg 0853 (Given - 40 mg, Oral, DAILY, First dose on Mon Provider: Radha jc 02/14/23 at 0900, Until Discontinued, Do Sami RN) not crush or chew tablet., Admission/Obs/Extended Recovery 09 (Med Not Given - Provider: Olivia Bunn RN - Reason: Patient Refused)2020 (Med Not Given - Provider: Quinten Stanford RN - Reason: Patient Refused) 09 (Med Not Given - Provider: Olivia Bunn RN - Reason: Patient Refused) polyethylene glycol 3350 (MIRALAX) 0854 (Given - packet 17 g Provider: Kaci 17 g (1 packet), Oral, TWICE DAILY, HALEY Gallardo)2100 ( ed First dose (after last modification) on Not Given - 02/19/23 at 2100, Until Discontinued, Provider: Barbara agee 8.5 GRAMS = 0.5 PACKET 17 GRAMS = 1 HALEY Christiansen - Reas on: PACKET 34 GRAMS = 2 PACKETS Patient Refused) 0904 (Given - Provider: Radha vang RN) 0908 (Given - Provider: Radha vang RN) sodium chloride PF 0.9% flush 10-20 mL 0905 (Given - 10-20 mL, Flush, FLUSH DAILY Provider: Kaci CARBAJAL, First dose on Mon02/17/23 jen Gallardo RN) 1730, Until Discontinued, Flush prior t o and following medication administration . For inpatients, ensure all lumens are flushed every 24 hours. Flush prior to blood collection and after obtaining blood specimen, ensuring blood is cleared from needless connectors (up to 20mL) 1654 (Given - Provider: Radha vang RN) tamsulosin (FLOMAX) capsule 0.4 1804 (Given - mg(Linked Group 1) Provider: Kaci 0.4 mg, Oral, DAILY WITH DINNER, First Sami RN) dose (after last modification) on Mon02/14/23 at 1700, Until Discontinued, Admission/Obs/Extended Recovery 02/28/2023 03/01/2023 Medication Order 02/27/2023 1146 (Given - Provider: Radha vang RN) acetaminophen (TYLENOL) tablet 650 mg 650 mg, Oral, EVERY 6 HOURS PRN, Starting on Mon02/27/23 at 0955, Until Mon03/01/23 at 1400, Other..., Pain non-opioid: may be used alone or in combination with opioid analgesia, temp > or equal to 38.1. If giving for pain, please check temp prior to administration, Notify provider of feve r prior to administering if first fever since hospitalization or if > 24 hours since last fever., Admission/Obs/Extended Recovery 0907 (Med Not Given - Provider: Olivia Bunn RN - Reason: Other (Comment) - Comment: Per , do not give this morning.) magnesium sulfate 4 g/50 mL IVPB 0640 (Given - New 4 g, Intravenous, 50 mL, Administer over Bag - Provi domingo: 4 Hours, NEEDED, Starting on Mon Laura Jeri Christiansen) 02/15/23 at 1611, Until Mon03/01/23 at 1400, Other..., See admin instructions, Do not replace magnesium if serum creatinine is > 2.0. - If serum magnesium </= 2 mg/dL, give magnesium sulfate 4g IV over 4 hours. Recheck level in AM. - If serum magnesium </= 1.6 mg/dL, give magnesium sulfate 4g IV over 4 hours and recheck level at 1600. If serum magnesium is still </= 1.6 mg/dL give additional 4 grams of magnesium over 4 hours and recheck leve l with AM labs. melatonin (MELATIN) tablet 3 mg 3 mg, Oral, AT BEDTIME PRN, Starting on Mon02/18/23 at 1121, Until Mon03/01/23 a t 1400, Insomnia 0912 (See Alternative - Provider: Wang Bunn, HALEY) potassium chloride in water IVPB 10 mEq(Linked Group 2) 10 mEq, Intravenous, 50 mL, Administer over 30-120 Minutes, NEEDED (CONSTRUCTION RECRUITER FROM RX), Starting on Mon02/15/23 at 1611, Until Mon03/01/23 at 1400, Other..., see admin instructions, HIGH GOAL Do not replace potassium chloride if serum creatinine is > 2.0. DOSE: (choose dose and select infusion time below) -For serum potassium 3.5 - 4 mEq/L, give KCI 40 mEq IV (10mEq x 4 doses) -For serum potassium < 3.5 mEq/L , give KCI 60 mEq IV over 6 hours (10 mEq x 6 doses) and check K+ 30 minutes afte r completion. If serum potassium is still < 3.5 mEq/L, give an additional 40 mEq IV (10mEq x 4 doses) x 1 series and NOTIFY PHSYCIAN/LUIS EDUARDO. INFUSION TIME: - Infuse each potassium chloride 10mEq IV over 2hr (5mEq/hr.), if: The patient has a peripheral line. -OR- The patient has other running sources of IV potassium. - Infuse each potassium chloride 10mEq IV over 1hr (10mEq/hr.), if: The patient is non-telemetry, and The patient has NO other running source s of IV potassium, and The patient has a central line. - Infuse each potassium chloride 10mEq IV over 30min (20mEq/hr.), if: The patient is on telemetry, and The patient has NO othe r running sources of IV potassium, and The patient has a central line. NOTE: This is a HIGH ALERT Medication. 09 (Given - Provider: Radha vang, RN) potassium chloride SR (K-DUR) tablet 40 mEq(Linked Group 2) 40 mEq, Oral, NEEDED (CONSTRUCTION RECRUITER FROM RX), Starting on Mon02/15/23 at 1611, Until Mon03/01/23 at 1400, Other..., see admin instructions, HIGH GOAL -For seru m potassium 3.5 - 4 mEq/L, give 40 mEq of PO potassium chloride if no GI distress or mucositis is present. -For serum potassium < 3.5 mEq/L, give 60 mEq of P O potassium chloride if no GI distress or mucositis is present. Repeat chemistry at 1600. If serum potassium is < 3.5 mEq/L, give additional 40 mEq of potassium chloride x 1, if no GI distress or mucositis is present and NOTIFY PHYSICIAN/LUIS EDUARDO. Give with meal or full glass of water 0907 (Med Not Given - Provider: Olivia Bunn, HALEY - Reason: Other (Comment)) sodium chloride 0.9 % TKO infusion 0328 (Given - Intravenous, at 10 mL/hr, NEEDED, Provider: Sherie on Starting on Mon02/13/23 at 2019, Until Елена, HALEY) Mon03/01/23 at 1400, Other..., Run as primary TKO with IV piggyback medications, Admission/Obs/Extended Recovery sodium chloride irrigation 0.9% bottle Swish & Spit, NEEDED, Starting on 02/13/23 at 2019, Until Mon03/01/23 at 1400, Other..., oral mucositis, Admission/Obs/Extended Recovery Order Group 1: dutasteride (AVODART) capsule 0.5 mgJum p to med 0.5 mg, Oral, DAILY WITH DINNER, First dose (after last modification) on Mon02/14/23 at 1700, Until Discontinued, Admission/Obs/Extended Re covery And tamsulosin (FLOMAX) capsule 0.4 mgJump to med 0.4 mg, Oral, DAILY WITH DINNER, First dose (after last modification) on Mon02/14/23 at 1700, Until Discontinued, Admission/Obs/Extended Re covery Group 2: potassium chloride in water IVPB 10 mEq Jump to med 10 mEq, Intravenous, 50 mL, Administer over 30-120 Minutes, NEEDED (CONSTRUCTION RECRUITER FROM RX), Starting on Mon02/15/23 at 1611, Until Mon03/01/23 a t 1400, Other..., see admin instructions
HIGH GOAL Do not replace potassium chloride if serum creatinine is > 2.0. DOSE: (choose dose and select infusion time below)&nb sp;-For serum potassium 3.5 - 4 mEq/L, give KCI 40 mEq IV (10mEq x 4 doses) -For serum potas sium < 3.5 mEq/L, give KCI 60 mEq IV over 6 hours (10 mEq x 6 doses) and check K+ 30 minutes after co mpletion. If serum potassium is still < 3.5 mEq/L, give an additional 40 mEq IV (10mEq x 4 doses) x 1 series and NOTIFY PHSYCIAN/LUIS EDUARDO. INFUSION TIME: - Infuse each potassium chlo ride 10mEq IV over 2hr (5mEq/hr.), if: The patient has a peripheral line. -OR- The patient has other running sources of IV potassium. - Infuse each potassium chloride 10mEq IV over 1hr (10mEq/hr.), if: The patient is non-telemetry, and The patient h as NO other running sources of IV potassium, and The patient has a central line. - Infu se each potassium chloride 10mEq IV over 30min (20mEq/hr.), if: The patient is on telemetry, and The patient has NO other running sources of IV potassium, and The patient has a central line. NOTE: This is a HIGH ALERT Medication.
Or potassium chloride SR (K-DUR) tablet 40 mEqJump to med 40 mEq, Oral, NEEDED (CONSTRUCTION RECRUITER FROM R X), Starting on Mon02/15/23 at 1611, Until Mon03/01/23 at 1400, Other..., see admin instructions< br>HIGH GOAL -For serum potassium 3.5 - 4 mEq/L, give 40 mEq of PO potassium chloride if no GI d istress or mucositis is present. - For serum potassium < 3.5 mEq/L, give 60 mEq of PO potassium chloride if no GI distress or mucositis is present. Repeat chemistry at 1600. If serum potassium i s < 3.5 mEq/L, give additional 40 mEq of potassium chloride x 1, if no GI distress or mucositis is pr esent and NOTIFY PHYSICIAN/LUIS EDUARDO. Give with meal or full glass of water
documented in this encounter Orders First Ordered Date Medications Ordered That Might Not Have Count Last Ordered Date Been Administered potassium phosphate 24 mmol in dextrose 1 02/25/2023 5% (D5W) 500 mL IVPB melatonin (MELATIN) tablet 3 mg 1 2022 albuterol sulfate (PROAIR HFA) inhaler 2 1 02/16/2023 puff aminophylline injection 50 mg 1 02/17/20 eucalyptus-menthoL (HALLS) lozenge 1 1 0 02/16/2023 lozenge nitroglycerin (NITROSTAT) tablet 0.4 mg 1 02/16/2023 sodium chloride 0.9 % infusion 1 02/16 fentaNYL citrate PF (SUBLIMAZE) 1 2022 injection 25 mcg chlorthalidone (HYGROTON) tablet 25 mg 1 02/13/2023 dextrose 50% (D50) syringe 25-50 mL 1 dutasteride (AVODART) capsule 0.5 mg 1 0 02/13/2023 enoxaparin (LOVENOX) syringe 40 mg 1 insulin aspart (U-100) (NOVOLOG FLEXPEN 1 02/13/2023 U-100 INSULIN) injection PEN 0-6 Units metoprolol tartrate (LOPRESSOR) tablet 1 02/13/2023 100 mg sodium chloride irrigation 0.9% bottle 1 02/13/2023 tamsulosin (FLOMAX) capsule 0.4 mg 1 First Ordered Date Lab Orders Without Results Count Last Ordere d Date 02/18/2023 PREPARE RBC'S 3 02/25/2023 First Ordered Date Procedures Count Last Ordered Date CONSULT VASCULAR ACCESS TEAM 1 First Ordered Date Diet Count Last Ordered Date DISCHARGE DIET OTHER 1 03/01/2023 First Ordered Date Nursing Count Last Ordered Date DISCHARGE ACTIVITY NORMAL 1 03/01/2023 DISCHARGE CONTACT 1 03/01/2023 DISCHARGE PICC LINE CARE 1 03/01/2023 DISCHARGE SIGNS/SYMPTOMS 1 03/01/2023 DISCHARGE WOUND CARE 1 03/01/2023 VITAL SIGNS FOR TRANSFUSION 1 02/18/2023 [facility] PATIENT CARE 1 0 02/17/2023 PROTOCOLS CONFIRM CONSENT OBTAINED 1 02/14/2023 HEIGHT 1 02/13/2023 First Ordered Date Consult Count Last Ordered Date 02/13/2023 CONSULT WOUND/OSTOMY TEAM NURSE 2 2022 CONSULT DIETITIAN 1 02/20/2023 CONSULT CARDIOLOGY PHYSICIAN 1 CONSULT ONCO-PSYCHOLOGY 1 02/13/2023 First Ordered Date OT Count Last Ordered Date OT CONSULT OCCUPATIONAL THERAPY 1 2022 First Ordered Date PT Count Last Ordered Date PT CONSULT PHYSICAL THERAPY 1 02/13/2023 First Ordered Date Admission Count Last Ordered Date ADMIT TO INPATIENT (NO BED REQUEST) 1 First Ordered Date Discharge Count Last Ordered Date DISCHARGE PATIENT NOW 1 03/01/2023 First Ordered Date Equipment Count Last Ordered Date PUMP IV CONTROL UNIT W/MODULES 1 023 COMPRESSION DEVICE, LEG 1 02/23/2023 02/13/2023 [facility] AIRFLOW PUMP 2 02/15/20 First Ordered Date Vital Signs Count Last Ordered Date VITAL SIGNS 1 02/13/2023 First Ordered Date Activity Count Last Ordered Date MOBILITY 1 02/13/2023 First Ordered Date Discharge Contingent Count Last Ordered Date DISCHARGE PATIENT CONTINGENT 1 First Ordered Date SPECIALITY EQUIPMENT Count Last Ordered Date COMMODE STANDARD 300LBS MAX 1 02/20/2023 First Ordered Date Order Set Communication Count Last Ordered D ate VTE DRUG PROPHYLAXIS CONTRAINDICATED 1 0 02/13/2023 First Ordered Date Intake & Output Count Last Ordered Date INTAKE AND OUTPUT 1 02/13/[address] & Maintain Count Last Ordered Date PLACE AND MAINTAIN SCD 1 02/13/2023 First Ordered Date ADT Patient Update Count Last Ordered Date 02/14/2023 CHANGE SERVICE / LEVEL OF CARE (NO BED 4 02/24/2023 REQUEST) documented in this encounter Additional Health Concerns Onset Date Resolved Time Infection Last Indicated 02/13/2023 02/13/2023 10:19 PM CDT Covid-19 Rule-Out 02/13/2023 02/13/2023 02/14/2023 2:01 AM CDT RVP Rule-Out 02/13/2023 02/13/2023 02/14/2023 2:01 AM CDT Covid-19 Rule-Out 02/13/2023 Noted Time Assessment 03/01/2023 9:04 AM CDT A fall risk assessment has been complet ed for the patient documented as of this encounter Care Teams Start Date End Date Distribution A Class Lineman Relationship Specialty 02/13/23 Bri Shetty MD PCP - General Family Medicine [address] [place] [address] documented as of this encounter
[2023-03-01 14:28] VITALS: BP 132/66
[2023-03-01] MEDS ORDERED: ACYC-112 PO (14:31)
[2023-03-01] MEDS ORDERED: EVOL420W2 SQ (14:31)
[2023-03-01] MEDS ORDERED: FLUC200T9 PO (14:31)
[2023-03-01] MEDS ORDERED: ASPI-999 PO (14:31)
[2023-03-01] MEDS ORDERED: DUTA1CPM4 PO (14:31)
[2023-03-01] MEDS ORDERED: APIX5TAB PO (14:31)
[2023-03-01] MEDS ORDERED: METO37.5 PO (14:32)
[2023-03-01] MEDS ORDERED: POLY17PO6 PO (14:32)
[2023-03-01] MEDS ORDERED: LEVO750T PO (14:32)
[2023-03-01] MEDS ORDERED: [UNRECOGNIZED DRUG - OTHER] PO SCH (15:00)
[2023-03-01] MEDS ORDERED: TAMSULOSIN HCL PO SCH (15:00)
[2023-03-01] MEDS ORDERED: DUTASTERIDE PO SCH (15:00)
--- NOTE | 2023-03-01 16:05 | Occupational Therapy Eval ---
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, 2023 Therapy Diagnosis Therapy Diagnosis: Acute myeloid Leukemia Height/Weight Height (Feet): 5 Height (Inches): 11.00 Weight (Pounds): 250 Weight (Ounces): 0.0 Precautions Precautions/Isolations: Fall Prevention, Standard Precautions, Pressure Ulcer Referral Physician: Laura Referral Reason: Self Care, Evaluation/Treatment, Strengthening/ROM Medical History Pertinent Medical History: Atrial Fib, Arthritis, CABG, CAD, DM, GERD, HTN Reviewed History: Yes Social History Home: Multilevel (Pt reports he is able to live on the first floor; has been going upstairs x 1 wk to shower) Current Living Status: Spouse Entry Into Home: Stairs With Railing Steps Into Home: 7 Steps Inside Home: 16 Other Obstacles: Pt reposts showering in upstairs bathroom ADL-Prior Level of Function SCALE: Activities may be completed with or without assistive devices. 3-Dyqdnslhgs-bqrqcma completes the activity by him/herself with no assistance from a helper. 5-Set-up or Clean-up Assistance-helper sets up or cleans up; patient completes activity. Eva assists only prior to or following the activity. 4-Supervision or Touching Assistance-helper provides verbal cues and/or touching/steadying and/or contact guard assistance as patient completes activity. Assistance may be provided throughout the activity or intermittently. 3-Partial/Moderate Assistance-helper does LESS THAN HALF the effort. Eva lifts, holds or supports trunk or limbs, but provides less than half the effort. 2-Substantial/Maximal Assistance-helper does MORE THAN HALF the effort. Eva lifts or holds trunk or limbs and provides more than half the effort. 2-Mzosciura-dnotlc does ALL the effort. Patient does none of the effort to complete the activity. Or, the assistance of 2 or more helpers is required for the patient to complete the activity. If activity was not attempted, code reason: 7-Patient Refused. 9-Not Applicable-not attempted and the patient did not perform the activity before the current illness, exacerbation or injury. 10-Not Attempted due to Environmental Limitations-(lack of equipment, weather restraints, etc.). 88-Not Attempted due to Medical Conditions or Safety Concerns. Self Care: Needed Some Help (Pt reports he is mostly (I) with assisting as needed) DME/Equipment: Bath Chair, Grab Bars, Reachers, Shower Hose Scheduling Clerk, Tall Toilet, Tub/Shower DME/Equipment Comments rollator, RW, cane Pt reports using rollator around the house Occupation: Retired from local [employer] Self: No (Pt reports that his drives him) Leisure Interests: Loves bird watching and taking pictures of birds with his OT Current Status Subjective Pt consented to OT evaluation; Co-treat with PT secondary to decreased endur ance, activity tolerance, and the need of a second person for safety to increase (I) with functional tasks and to decrease burden of care. PT focusing on functional mobility and gait while OT focusing on ADLs, assisting with standing and strengthening B UE's. Pain Comment: Pt did not give a pain score. However, pt reports pain in arms and back. Mental Status/Objective Patient Orientation: Person, Place, Time, Situation, Normal For Age Attachments: IV Current Glasses/Contacts: Yes (for reading) Hearing Aids: No Dentures/Partials: Yes Hand Dominance: Right Upper Extremity ROM BUE AROM WFL Upper Extremity Coordination 9 hole peg test: R: 38 secs L: 38 secs Upper Extremity Sensation None reported by pt in BUE's/BLE's Upper Extremity Strength WFL to perform basic ADLs; proximal muscle weakness noted Edema: Edema noted in BLE's Senior Partner strength: R: 55# L: 50# ADL-Treatment Eating (QC): 5 (set-up A to open packages) Oral Hygiene (QC): 5 (Set-up A to clean dentures seated in WC) Shower/Bathe Self (QC): 2 (Sub/max A for bathing based on clinical judgement; OT will continue to assess) Upper Body Dressing (QC): 3 (Partial/mod A for donning/doffing shirt seated at EOB; pt required (A) to pull shirt over head and to pull down in the back.) Lower Body Dressing (QC): 1 (Total A for LBD secondary to needing second person for safety/steadiness; pt able to thread BLE's into pants legs and pull up to knees; sit<>stand performed where pt pulled pants over hips with mod A from therapist and second person available for safety.) On/Off Footwear (QC): 2 (Sub/max A donning/doffing socks seated at EOB) Toileting Hygiene (QC): 1 (Total A secondary to pt requiring second person for steadiness for standing when managing clothing; pt able to clean buttocks/filipe area seated on toilet) Education OT Patient Education: Energy conservation, Exercise program, Home exercise program, Instructions to caregiver, Modified ADL techniques, Progress toward Goal/Update tx plan, Purpose of tx/functional activities, Rehab process, Safety issues, Transfer techniques, Use of adapted equipment Teaching Recipient: Patient Teaching Methods: Demonstration, Discussion Response to Teaching: Verbalize Understanding, Return Demonstration, Reinforcement Needed BIMS CAM BIMS Expression of Ideas and Wants: Without Difficulty Understanding Verbal Content: Understands Brief Interview/Mental Status: Yes IRF SOPHIA BIMS: IRF SOPHIA BIMS Response (Comments) Value Repitition of Three Words Three 3 Recalls Socks Yes, No Cue Required 2 Recalls Blue Yes, No Cue Required 2 Recalls Bed Yes, No Cue Required 2 Year Correct 3 Month Accurate Within 5 Days 2 Day Correct 1 Total [address] No CAM Mental Status Change/Baseline: 0 Inattention: 2 Disorganized thinkin Altered level of consciousness: 0 OT [employer] Goals [employer] Goals Eating (QC): 6 Oral Hygiene (QC): 6 Toileting Hygiene (QC): 4 Shower/Bathe Self (QC): 5 Upper Body Dressing (QC): 6 Lower Body Dressing (QC): 4 On/Off Footwear (QC): 5 1=Demonstrate adherence to instructed precautions during ADL tasks. 2=Patient will verbalize/demonstrate understanding of assistive devices/modifications for ADL. 3=Patient will improve strength/tolerance for activity to enable patient to perform ADL's. OT Education/Plan Problem List/Assessment Assessment: Decreased Activ Tolerance, Decreased Safety Aware, Decreased UE Strength, Dependent Transfers, Edema, Impaired Bed Mobility, Impaired Funct Balance, Impaired I ADL's, Impaired Self-Care Skills Discharge Recommendations Plan/Recommendations: Continue POC Comment OT will continue to assess DME needs pending pt's progression Barriers to Progress 2 story home (16 stairs to get to second floor where pt uses the tub shower) Treatment Plan/Plan of Care Treatment,Training & Education: Yes Patient would benefit from OT for education, treatment and training to promote independence in ADL's, mobility, safety and/or upper extremity function for ADL's. Plan of Care: ADL Retraining, Caregiver Training, Functional Mobility, Group Exercise/Act as Ind, UE Funct Exercise/Act Treatment Duration: Mar 22, 2023 Frequency: At least 5 of 7 days/Wk (IRF) Estimated Hrs Per Day: 1.5 hours per day Agreement: Yes Rehab Potential: Good Ending session, pt remained semi-reclined in bed with needs/call light in reach and bed in lowest position. RN notified of pt's disposition and performance during evaluation. Time Start Time: 14:10 Stop Time: 15:55 DATE: Mar 01, 2023 Total Time Billed (hr/min): 90 Billed Treatment Time 90 minutes; Co-treat with PT for 75 minutes 1410 - 1425: 15 minutes OT EVAL 1440 - 1555: 75 minutes Co-treat with PT EVM 1 ADL 3 FA 2 HWIT DE LEON Mar 01, 2023 16:05
--- NOTE | 2023-03-01 16:22 | Physical Therapy Evaluation ---
PT Evaluation-General Medical Diagnosis Admission Date Mar 01, 2023 at 14:18 Medical Diagnosis: Critical Illness Myopathy Onset Date: Feb 13, 2023 Therapy Diagnosis Therapy Diagnosis: Decreased proximal/core strength; Decreased functional mobility Height/Weight Height (Feet): 5 Height (Inches): 11.00 Weight (Pounds): 250 Weight (Ounces): 0.0 Precautions Precautions/Isolations: Fall Prevention, Standard Precautions, Pressure Ulcer Weight Bear Status Right Lower Extremity: Right Full Weight Bearing Left Lower Extremity: Left Full Weight Bearing Referral Physician: Laura Reason for Referral: Evaluation/Treatment Medical History Pertinent Medical History: Atrial Fib, Arthritis, CAD, DM, GERD, HTN, Prostate CA Additional Medical History Acute myeloid leukemia, HTN, CABG, Heart disease, chronic back pain, hyperlipidemia, A-Fib, DM II, ODETTE, GERD, prostate cancer, pacemaker Current History 02/13/23 pt was admitted to for acute leukemia; 03/01/23 pt was admitted to ARU Reviewed History: Yes Social History Home: Multilevel Current Living Status: Significant Other Entry Into Home: Stairs With Railing PT Steps Into Home: 7 PT Steps Inside Home: 16 Pt lives at home in a 2-story home with his spouse with 7 steps to enter/exit with 1 HR and 16 steps to 2nd level where bathroom is; Tub shower, GB, SC, raised toilet Prior Prior Level of Function SCALE: Activities may be completed with or without assistive devices. 9-Mmzqfwmmyq-hcakgsx completes the activity by him/herself with no assistance from a helper. 5-Set-up or Clean-up Assistance-helper sets up or cleans up; patient completes activity. [place] assists only prior to or following the activity. 4-Supervision or Touching Assistance-helper provides verbal cues and/or touching/steadying and/or contact guard assistance as patient completes activity. Assistance may be provided throughout the activity or intermittently. 3-Partial/Moderate Assistance-helper does LESS THAN HALF the effort. [place] lifts, holds or supports trunk or limbs, but provides less than half the effort. 2-Substantial/Maximal Assistance-helper does MORE THAN HALF the effort. [place] lifts or holds trunk or limbs and provides more than half the effort. 8-Drdqifolf-cnwkin does ALL the effort. Patient does none of the effort to complete the activity. Or, the assistance of 2 or more helpers is required for the patient to complete the activity. If activity was not attempted, code reason: 7-Patient Refused. 9-Not Applicable-not attempted and the patient did not perform the activity before the current illness, exacerbation or injury. 10-Not Attempted due to Environmental Limitations-(lack of equipment, weather restraints, etc.). 88-Not Attempted due to Medical Conditions or Safety Concerns. Bed Mobility: 9 (Pt sleeps in a lift chair ) Transfers (B,C,W/C): 6 Gait: 6 Stairs: 6 Wheelchair Mobility: 9 Indoor Mobility (Ambulation): Independent Stairs: Independent Prior Devices Use: Mechanical lift, Walker Prior Device Use: SPC, FWW, 4WW At PLOF, pt was Ind with the FWW/4WW/SPC (2 SPCs when leaving the home); Pt sleeps in a lift chair PT Evaluation-Current Subjective Pt is agreeable to PT. Pt denies pain, but reports his back bothers him at times. Pain Numeric Pain Scale: 0-No Pain Location: No Pain Reported Section J - Health Conditions 1. Rarely or not at all 2. Occasionally 3. Frequently 4. Almost constantly 8. Unable to answer Pain Effect on Sleep: 1 Pain Interference with Therapy: 2 Pain Interference w/Day-to-Day: 1 Pt/Family Goals Safely return home Objective Patient Orientation: Person, Place, Time, Situation Attachments: IV ROM/Strength ROM Upper Extremities See OT eval ROM Lower Extremities WFL Strength Upper Extremities See OT eval Strength Lower Extremities B ankle MMT = 4-/5 B knee MMT = 3+/5 B hip MMT = 3-/5 Integumentary/Posture Integumentary See nursing note Bowel Incontinence: No Bladder Incontinence: No Posture poor posture/forward flexed posture due to poor core strength Sensory Vision: Functional Hearing: Functional Hand Dominance: Right Sensation Right Upper Extremit: Intact Sensation Left Upper Extremity: Intact Sensation Right Lower Extremit: Intact Sensation Left Lower Extremity: Intact Transfers Roll Left & Right (QC): 3 (Min A ) Sit to Lying (QC): 3 (Min A ) Lying to Sitting/Side of Bed(Q: 3 (Min A ) Sit to Stand (QC): 3 (Min A ) Chair/Ndj-vd-Ahpbp Xfer(QC): 3 (Min A ) Toilet Transfer (QC): 3 (Min A ) Car Transfer (QC): 3 (Min A ) Gait Does the Patient Walk?: Yes Mode of Locomotion: Both Anticipated Mode of Locomotion: Walk Walk 10 feet (QC): 3 (Min A ) Walk 50 ft with 2 Turns(QC): 88 (Pt unable to walk more than 15ft with the FWW, or negotiate stairs, due to poor core and hip strength. ) Walk 150 ft (QC): 88 (Pt unable to walk more than 15ft with the FWW, or negotiate stairs, due to poor core and hip strength. ) Walking 10ft/uneven surface-QC: 3 (Min A ) Gait Assistive Device: FWW Wheelchair Training Does the Pt Use a Wheelchair?: Yes Distance: 50ft Wheel 50 ft with 2 turns (QC): 4 (SBA ) Wheel 150 ft (QC): 88 (Unable to complete due to poor core and hip strength. ) Type of Wheelchair: Manual Stairs 1 Step (curb) (QC): 3 (Min A ) 4 Steps (QC): 88 (Pt unable to walk more than 15ft with the FWW, or negotiate stairs, due to poor core and hip strength. ) 12 Steps (QC): 88 (Pt unable to walk more than 15ft with the FWW, or negotiate stairs, due to poor core and hip strength. ) Walking Assistive Device: Walker Balance Sitting Static: Fair (poor core and hip strength ) Sitting Dynamic: Fair (poor core and hip strength ) Standing Static: Poor (poor core and hip strength ) Standing Dynamic: Poor (poor core and hip strength ) Picking up an Object (QC): 3 (Min A with station inspector ) Special Test Comments KU standing balance scale = 2/5 (goal = 4/5) Treatment PT eval completed. PT/OT co-tx ([id number]), skills of 2 clinicians required to decrease fall risk, increase functional mobility, and increase overall strength for daily functional tasks. PT focusing on bed mobility, transfers, ambulation, and management of B LE. OT focusing on management of B UE, weight bearing, activity tolerance, and ADLs. Pt required Min A for all aspects of functional mobility with the FWW, in order to improve safety due to proximal/hip/core strength. Pt was only able to ambulate ~ 15ft with the FWW and Min A. Pt completed w/c mobility x 50ft with SBA. Pt completed 2 bouts of standing balloon toss with assist x 2 to decrease fall risk. Pt stood for 40 sec, as well as 1 min with CGA/Min A. Pt completed ADLs while seated in the w/c, as well as EOB with SBA/Min A for balance/safety due to decreased hip/core strength. After treatment session, pt lying in bed with call light in reach and all needs met. Pt denies any questions or concerns. Assessment/Needs Pt tolerated PT well with good effort and would benefit from skilled PT to improve B hip and core strength, as well as overall functional mobility to be able to safely return home with spouse. Rehab Potential: Good Post Rehab Potential-Barriers: Proximal/core/B hip weakness; steps at home and living situation Equipment Needs TBD PT Automotive Detailer Goals Automotive Detailer Goals PT Assisted Goals Time Frame: Mar 15, 2023 Roll Left to Right (QC): 6 (Pt will be Mod I with all aspects of functional mobility to be able to safely return home with spouse. ) Sit to Lying (QC): 6 (Pt will be Mod I with all aspects of functional mobility to be able to safely return home with spouse. ) Lying-Sitting on Side/Bed(QC): 6 (Pt will be Mod I with all aspects of functional mobility to be able to safely return home with spouse. ) Sit to Stand (QC): 6 (Pt will be Mod I with all aspects of functional mobility to be able to safely return home with spouse. ) Chair/Dpv-wd-Rltkj Xfer(QC): 6 (Pt will be Mod I with all aspects of functional mobility to be able to safely return home with spouse. ) Toilet/Commode Transfer (QC): 6 (Pt will be Mod I with all aspects of functi onal mobility to be able to safely return home with spouse. ) Car Transfer (QC): 6 (Pt will be Mod I with all aspects of functional mobility to be able to safely return home with spouse. ) Does the Patient Walk: Yes Walk 10 feet (QC): 6 (Pt will be Mod I with all aspects of functional mobility to be able to safely return home with spouse. ) Walk 10ft-Uneven Surface(QC): 6 (Pt will be Mod I with all aspects of functional mobility to be able to safely return home with spouse. ) Walk 50ft with 2 Turns (QC): 6 (Pt will be Mod I with all aspects of functional mobility to be able to safely return home with spouse. ) Walk 150 ft (QC): 6 (Pt will be Mod I with all aspects of functional mobility to be able to safely return home with spouse. ) Does the Pt use WC or Scooter?: Yes Wheel 50 feet with 2 turns (QC: 6 (Pt will be Mod I with all aspects of functional mobility to be able to safely return home with spouse. ) Type: Manual Wheel 150 feet: 6 (Pt will be Mod I with all aspects of functional mobility to be able to safely return home with spouse. ) Type: Manual 1 Step (curb) (QC): 6 (Pt will be Mod I with all aspects of functional mobility to be able to safely return home with spouse. ) 4 Steps (QC): 6 (Pt will be Mod I with all aspects of functional mobility to be able to safely return home with spouse. ) 12 Steps (QC): 6 (Pt will be Mod I with all aspects of functional mobility to be able to safely return home with spouse. ) Picking up an Object (QC): 6 (Pt will be Mod I with all aspects of functional mobility to be able to safely return home with spouse. With station inspector ) KU standing balance scale = 4/5 PT Plan Problem List Problem List: Activity Tolerance, Functional Strength, Safety, Balance, Gait, Transfer, Bed Mobility, ROM Treatment/Plan Treatment Plan: Continue Plan of Care Treatment Plan: Bed Mobility, Education, Functional Activity Dianne, Functional Strength, Group Therapy, Gait, Safety, Therapeutic Exercise, Transfers Treatment Duration: Mar 15, 2023 Frequency: At least 5 of 7 days/Wk (IRF) Estimated Hrs Per Day: 1.5 hours per day Patient and/or Family Agrees t: Yes Safety Risks/Education Patient Education: Gait Training, Transfer Techniques, Steps, Correct Positioning, W/C Management, Safety Issues Teaching Recipient: Patient Teaching Methods: Demonstration, Discussion Response to Teaching: Verbalize Understanding, Return Demonstration, Reinforcement Needed Discharge Recommendations Plan Pt would benefit from skilled PT to improve core/hip strength and progress towards PLOF and safe d/c home with spouse Therapy Discharge Recommendati: Home & Family Discharge Status/Home Program Cont per POC Barriers to Progress proximal/core/hip weakness; steps at home Target Placement Home with spouse Time Time In: 1425 Time Out: 1555 DATE: Mar 01, 2023 Total Billed Treatment Time: 90 Total Billed Treatment 90 min total treatment time from 0955-2177; 75 min co-tx from [id number] 1 visit EVM GT x 2 FA x 3 CARRINGTON GUTIERRES PT Mar 01, 2023 16:22
--- NOTE | 2023-03-01 17:24 | Diagnostic Imaging Report ---
INDICATION: Evaluate indwelling PICC line. COMPARISON: 02/13/2023. FINDINGS: Single frontal radiographic view of the chest was obtained and demonstrates indwelling right upper extremity PICC line with tip in the SVC. Left-sided dual-lead pacemaker and sternotomy wires are noted. Heart is mildly enlarged. Pulmonary vasculature is mildly prominent. There is also diffuse prominence of the interstitium and hazy opacification of both lung bases, as well as partial obscuration of the left hemidiaphragm. No pneumothorax is seen. Osseous structures show no acute abnormalities. IMPRESSION: 1. Right upper extremity PICC line with tip in the SVC. 2. Cardiomegaly with sequelae of CHF including probable interstitial pulmonary edema and bibasilar effusions. 3. Probable superimposed left basilar atelectasis. Pneumonia is not entirely excluded. Dictated by: Dictated on workstation # [id number]
[2023-03-01] MEDS: FINASTERIDE 5 MG TABLET PO SCH (18:09)
[2023-03-01] MEDS: TAMSULOSIN 0.4 MG (FLOMAX) CAP PO SCH (18:09)
[2023-03-01 20:47] VITALS: BP 120/77
[2023-03-01] MEDS: ACYCLOVIR 400 MG CAPSULE/TABLET PO SCH (20:54)
[2023-03-01] MEDS: OXYBUTYNIN 5 MG TABLET PO SCH (20:54)
[2023-03-01] MEDS: meTOprolol TARTRATE (IR) 25 MG TABLET PO SCH (20:54)
[2023-03-01] MEDS: SENNA W/DOCUSATE TABLET PO SCH (21:05)
[2023-03-01] MEDS: CATHETER FLUSH 10 ML SYR IVP SCH (21:05)
[2023-03-01] MEDS: DOCUSATE SODIUM 100 MG CAPSULE PO SCH (21:05)
--- NOTE | 2023-03-02 05:15 | PM&R Progress Note ---
Subjective HPI/CC On Admission Date Seen by Provider: Mar 02, 2023 Time Seen by Provider: 12:30 Subjective/Events-last exam 03/02/2023: Patient still very weak Giving 1 unit of blood due to hemoglobin 7.8 Slow recovery Platelet count good Maintain on Levaquin we will check stop date soon Review of Systems General: Fatigue, Malaise Objective Exam Vital Signs Vital Signs Date Time Temp Pulse Resp B/P (MAP) Pulse Ox O2 Delivery O2 Flow Rate FiO2 03/02/23 19:32 36.8 77 20 135/62 (86) 94 Room Air 03/01/23 18:53 97 Capillary Refill : General Appearance: No Apparent Distress, WD/WN, Chronically ill HEENT: PERRL/EOMI, Normal ENT Inspection, Pharynx Normal Neck: Full Range of Motion, Normal Inspection, Non Tender, Supple, Carotid Bruit Respiratory: Chest Non Tender, Lungs Clear, Normal Breath Sounds, No Accessory Muscle Use, No Respiratory Distress Cardiovascular: Regular Rate, Rhythm, No Edema, No Gallop, No JVD, No Murmur, Normal Peripheral Pulses Gastrointestinal: Normal Bowel Sounds, No Organomegaly, No Pulsatile Mass, Non Tender, Soft Back: Normal Inspection, No CVA Tenderness, No Vertebral Tenderness Extremity: Normal Capillary Refill, Normal Inspection, Normal Range of Motion, Non Tender, No Calf Tenderness, No Pedal Edema Neurologic/Psychiatric: Alert, Oriented x3, labor operator II-XII Norm as Tested, Abnormal Gait, Depressed Affect, Motor Weakness (generalized) Skin: Normal Color, Warm/Dry Lymphatic: No Adenopathy Results/Procedures Lab Laboratory Tests 03/02/23 06:20 Patient resulted labs reviewed. FIM Transfers Therapy Code Descriptions/Definitions Functional [place] Measure: 0=Not Assessed/NA 4=Minimal Assistance 1=Total Assistance 5=Supervision or Setup 2=Maximal Assistance 6=Modified [place] 3=Moderate Assistance 7=Complete IndependenceSCALE: Activities may be completed with or without assistive devices. 8-Sknsadothg-qpouncb completes the activity by him/herself with no assistance from a helper. 5-Set-up or Clean-up Assistance-helper sets up or cleans up; patient completes activity. [place] assists only prior to or following the activity. 4-Supervision or Touching Assistance-helper provides verbal cues and/or touching/steadying and/or contact guard assistance as patient completes activity. Assistance may be provided throughout the activity or intermittently. 3-Partial/Moderate Assistance-helper does LESS THAN HALF the effort. [place] lifts, holds or supports trunk or limbs, but provides less than half the effort. 2-Substantial/Maximal Assistance-helper does MORE THAN HALF the effort. [place] lifts or holds trunk or limbs and provides more than half the effort. 1-Ulqxtcvzq-krittv does ALL the effort. Patient does none of the effort to complete the activity. Or, the assistance of 2 or more helpers is required for the patient to complete the activity. If activity was not attempted, code reason: 7-Patient Refused. 9-Not Applicable-not attempted and the patient did not perform the activity before the current illness, exacerbation or injury. 10-Not Attempted due to Environmental Limitations-(lack of equipment, weather restraints, etc.). 88-Not Attempted due to Medical Conditions or Safety Concerns. Roll Left to Right (QC): 3 (Min A ) Sit to Lying (QC): 3 (Min A ) Sit to Stand (QC): 3 (Min A ) Chair/Jzc-br-Wjyae Xfer(QC): 3 (Min A ) Car Transfer (QC): 3 (Min A ) Gait Training Does the Patient Walk?: Yes Walk 10 feet (QC): 3 (Min A ) Walk 50 ft with 2 Turns(QC): 88 (Pt unable to walk more than 15ft with the FWW, or negotiate stairs, due to poor core and hip strength. ) Walk 150 ft (QC): 88 (Pt unable to walk more than 15ft with the FWW, or negotiate stairs, due to poor core and hip strength. ) Walking 10ft/uneven surface-QC: 3 (Min A ) Gait Assistive Device: FWW Wheelchair Training Does the Pt Use a Wheelchair?: Yes Distance: 50ft Wheel 50 ft with 2 turns (QC): 4 (SBA ) Wheel 150 ft (QC): 88 (Unable to complete due to poor core and hip strength. ) Type of Wheelchair: Manual Stair Training 1 Step (curb) (QC): 3 (Min A ) 4 Steps (QC): 88 (Pt unable to walk more than 15ft with the FWW, or negotiate stairs, due to poor core and hip strength. ) 12 Steps (QC): 88 (Pt unable to walk more than 15ft with the FWW, or negotiate stairs, due to poor core and hip strength. ) Balance Picking up an Object (QC): 3 (Min A with rn family ) ADL-Treatment Eating (QC): 5 (set-up A to open packages) Oral Hygiene (QC): 5 (Set-up A to clean dentures seated in WC) Shower/Bathe Self (QC): 2 (Sub/max A for bathing based on clinical judgement; OT will continue to assess) Upper Body Dressing (QC): 3 (Partial/mod A for donning/doffing shirt seated at EOB; pt required (A) to pull shirt over head and to pull down in the back.) Lower Body Dressing (QC): 1 (Total A for LBD secondary to needing second person for safety/steadiness; pt able to thread BLE's into pants legs and pull up to knees; sit<>stand performed where pt pulled pants over hips with mod A from therapist and second person available for safety.) On/Off Footwear (QC): 2 (Sub/max A donning/doffing socks seated at EOB) Toileting Hygiene (QC): 1 (Total A secondary to pt requiring second person for steadiness for standing when managing clothing; pt able to clean buttocks/iflipe area seated on toilet) Assessment/Plan Assessment and Plan Assess & Plan/Chief Complaint Assessment: Critical illness myopathy AML Anemia Thrombocytopenia AF CAD BPH HLP HTN Plan: Monitor closely Fall risk Pain meds Transfuse prn Hold ASA and OAC 03/02/2023: Supportive care Transfusions as necessary Home meds Hold anticoagulation and aspirin (1) Myopathy (2) Acute myelogenous leukemia Status: Acute (3) Atrial fibrillation Status: Chronic (4) CAD (coronary artery disease) (5) HTN (hypertension) Status: Chronic (6) BPH (benign prostatic hyperplasia) Status: Chronic JANEY NAQVI DO Mar 02, 2023 05:15
--- NOTE | 2023-03-02 05:16 | Individualized Plan of Care ---
Individualized Plan of Care Rehab Nursing IPOC Order Admission Date Mar 01, 2023 at 14:18 Current Orders Orders Admission Order(Inpt,Obs,Sdc) (03/01/23 12:46) Vital Signs: Per Unit Policy ( 08,16,00 (03/01/23 12:46) John Alicia ,21 (03/01/23 12:46) Sequential Compression Device [id number] (03/01/23 12:46) Accounting Professor-Inpt Rehab Con (03/01/23 12:46) Rehab Nursing Orders-Ipoc (03/01/23 12:46) Physical Therapy Rehab Orders (03/01/23 12:46) Occupational Therapy Rehab Ord (03/01/23 12:46) Speech Therapy Rehab Orders (03/01/23 12:46) Cbc With Automated Diff (03/02/23 06:00) Comprehensive Metabolic Panel (03/02/23 06:00) Precautions (Aru) (03/01/23 12:46) Weekly Weight WEEK (03/01/23 12:46) Rehab-Intensity Of Therapy (03/01/23 12:46) Initiate Admission Nursing Pro .admission (03/01/23 12:46) Alprazolam Tablet (Alprazolam Tablet) (03/01/23 13:00) Calcium Carbonate Chew Tablet (Calcium C (03/01/23 13:00) Diphenhydramine Tablet (Diphenhydramine (03/01/23 13:00) Docusate Sodium Capsule (Docusate Sodium (03/01/23 21:00) Docusate Sodium Capsule (Docusate Sodium (03/01/23 13:00) Bisacodyl Suppository (Bisacodyl Supposi (03/01/23 13:00) Lactulose Oral Solution (Enulose Oral So (03/01/23 13:00) Na Phos/Na Biphos Adult Enema (Na Phos/N (03/01/23 13:00) Guaifenesin/Codeine Syrup (Guaifenesin/C (03/01/23 13:00) Loperamide Capsule (Loperamide Capsule) (03/01/23 13:00) Melatonin Tablet (Melatonin Tablet) (03/01/23 13:00) Polyethylene Glycol Powder (Polyethylen (03/01/23 21:00) Ondansetron Oral Dissolve Tab (Ondanset (03/01/23 13:00) Senna W/Docusate Tablet (Senna W/Docusat (03/01/23 21:00) Acetaminophen Tablet (Acetaminophen Ta (03/01/23 13:00) Initiate Admission Nursing Pro .admission (03/01/23 12:46) Vte Contraindication (03/01/23 12:46) Admission Arrival Bed Request (03/01/23 14:18) Follow-Up Appointment (03/01/23 14:37) Levofloxacin Tablet (Levofloxacin Tabl (03/02/23 11:00) Omeprazole (Non-Formulary) (Omeprazole ( (03/02/23 09:00) Polyethylene Glycol Powder (Polyethylen (03/01/23 21:00) Acyclovir Capsule/Tablet (Acyclovir Ca (03/01/23 21:00) (Nf) Dutasteride/Tamsulosin Hcl (Dutaste (03/01/23 15:00) (Nf) Fluconazole (03/02/23 09:00) Metoprolol Tartrate (Ir) Tab (03/01/23 21:00) Multivitamin W/Mineral Tablet (Multivita (03/02/23 07:00) (Nf) Oxybutynin Chloride (Oxybutynin Chl (03/02/23 09:00) Oxybutynin Tablet (Oxybutynin Tablet) (03/01/23 21:00) Pantoprazole Tablet (Pantoprazole Tablet (03/02/23 09:00) Low Microbial (03/01/23 Lunch) Ensure Hi Protein Variety (03/01/23 15:03) Finasteride Tablet (Finasteride Tablet) (03/01/23 18:00) Tamsulosin Capsule (Flomax Capsule) (03/01/23 18:00) Fluconazole Tablet (Fluconazole Tablet (03/02/23 09:00) Magnesium (03/02/23 06:00) Consult Wound Care Physician (03/01/23 16:33) Hypochlorous Acid/Sod Chloride (Hypochlo (03/01/23 16:45) Chest 1 View, Ap/Pa Only (03/01/23 16:52) Sodium Chloride Flush (Catheter Flush Sy (03/01/23 22:00) Incentive Spirometry Initial (03/01/23 17:31) Incentive Spirometry (Nursing) Q2H (03/01/23 17:31) Code/Resuscitation (03/01/23 20:28) Manual Differential (03/02/23 06:20) Vital Signs: Special (Order) (03/02/23 07:56) Consent-Obtain Consent For (03/02/23 07:56) Monitor S/S Transfusion Reacti (03/02/23 07:56) Type And Screen (03/02/23 07:56) Red Cells Leukocytes Reduced (03/02/23 07:56) Ns Iv 500 Ml (Ns Iv 500 Ml) (03/02/23 08:00) Patient Visit (03/01/23 ) Pt Eval Moderate Complexity (03/01/23 ) Gait Training, Ea 15 Min (03/01/23 ) Functional Activities, Ea 15 (03/01/23 ) Miconazole 2% Powder (Miconazole 2% Powd (03/02/23 10:17) Dressing Order (Intervention) BID (03/02/23 12:06) Patient Visit (03/02/23 ) Wheelchair Mgmt/Propulsn 15min (03/02/23 ) Exercise Therap, Ea 15 Min (03/02/23 ) Functional Activities, Ea 15 (03/02/23 ) Patient Visit (03/02/23 ) Speech Sound Lang Comp (03/02/23 ) Rehab Nursing Orders: Ongoing Assess. of Cognitive Status, Ongoing Assess. of Function Status, Bladder Management, Bladder Scan, Bladder Training, Bowel Management, Bowel Training, Disease Management & Educaiton, DVT Prophylaxis, Fall Prevention, Fluid/Electrolyte/Nutrition Mgmt, Infection Prevention, Medication Management & Education, Management of Risks & Complications, Management of Skin Intergrity, Nutrition Management, Pain Management, Patient/Family Support, Safety Management, Wound Management Intensity of Therapy to be met Patient to be seen: Min.3h per day/5 of 7d PT IPOC Problem List: Activity Tolerance, Functional Strength, Safety, Balance, Gait, Transfer, Bed Mobility, ROM Treatment Plan: Continue Plan of Care Bed Mobility, Education, Functional Activity Dianne, Functional Strength, Group Therapy, Gait, Safety, Therapeutic Exercise, Transfers Treatment Duration: Mar 15, 2023 Frequency: At least 5 of 7 days/Wk (IRF) Estimated Hrs Per Day: 1.5 hours per day OT IPOC Problems: Decreased Activ Tolerance, Decreased Safety Aware, Decreased UE Strength, Dependent Transfers, Edema, Impaired Bed Mobility, Impaired Funct Balance, Impaired I ADL's, Impaired Self-Care Skills OT Treatment, Training and Edu: Yes Plan of Care: ADL Retraining, Caregiver Training, Functional Mobility, Group Exercise/Act as Ind, UE Funct Exercise/Act Treatment Duration: Mar 22, 2023 Frequency: At least 5 of 7 days/Wk (IRF) Estimated Hrs Per Day: 1.[address] IPOC Speech Therapy Treatment Plan: Discontinue ST Treatment Duration: Mar 02, 2023 Frequency: Modified Program (IRF) Estimated Hrs Per Day: Other Accounting Professor/Case Mgmt Accounting Professor/Case Managemen: Discharge Planning Dietitian/Vault Service Mechanic Dietitian/Vault Service Mechanic to monitor nutritional status and make changes and/or recommendations as needed and work with speech pathology on dietary upgrades as the occur. 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 with high risk of bleeding due to low platelet count will be high risk for decompensation and infection Medical Issues: Bowel/Bladder Function, DVT Prophylaxis, Falls Precautions, Fluid/Electrolyte/Nutrition Balance, Infection Protection, Pain Management, Wound Care Brief Synthesis of Preadmission Screen, Post-Admission Evaluation, and Therapy Evaluations: PT and OT will focus on increasing stamina and ambulation with use of assistive devices in order to decrease risk for falls and will monitor closely in the meantime for opportunities to increase independence in ADLs in order to return home with spouse Medical Prognosis: Fair Anticipated Length of Stay: 7 days JANEY NAQVI DO Mar 02, 2023 05:16
[2023-03-02] MEDS: CATHETER FLUSH 10 ML SYR IVP SCH ×3 (06:07→21:01)
[2023-03-02] MEDS: THERAPEUTIC MULTIVITAMIN W/MINERALS TABLET PO SCH (06:07)
[2023-03-02 06:32] LABS: HEMOGLOBIN 7.8 g/dL (13.3-17.7)
[2023-03-02 06:34] LABS: BASOPHILS % (AUTO) 0 % (0-10); EOSINOPHILS # (AUTO) 0.5 10^3/uL (0.0-0.3); EOSINOPHILS % (AUTO) 5 % (0-10); HEMATOCRIT 23 % (40-54); LYMPHOCYTES # (AUTO) 3.3 10^3/uL (1.0-4.0); LYMPHOCYTES % (AUTO) 28 % (12-44); MEAN CORPUSCULAR HEMOGLOBIN 33 pg (25-34); MEAN CORPUSCULAR HGB CONC 34 g/dL (32-36); MEAN CORPUSCULAR VOLUME 100 fL (80-99); MEAN PLATELET VOLUME 10.5 fL (9.0-12.2); MONOCYTES # (AUTO) 6.3 10^3/uL (0.0-1.0); MONOCYTES % (AUTO) 53 % (0-12); NEUTROPHILS # (AUTO) 0.9 10^3/uL (1.8-7.8); NEUTROPHILS % (AUTO) 8 % (42-75); WHITE BLOOD COUNT 11.9 10^3/uL (4.3-11.0)
[2023-03-02 06:45] LABS: PLATELET COUNT 17 10^3/uL (130-400)
[2023-03-02 06:49] LABS: BILIRUBIN,TOTAL 1.8 MG/DL (0.1-1.0); CALCIUM 8.7 MG/DL (8.5-10.1); CREATININE SERUM 0.96 MG/DL (0.60-1.30); MAGNESIUM 2.1 MG/DL (1.6-2.4); POTASSIUM 3.9 MMOL/L (3.6-5.0); TOTAL PROTEIN 5.4 GM/DL (6.4-8.2)
[2023-03-02 07:05] LABS: BAND NEUTROPHILS 1 %; EOSINOPHILS % (MANUAL) 1 %; LYMPHOCYTES % (MANUAL) 32 %; METAMYELOCYTES % 2 %; MONOCYTES % (MANUAL) 13 %; NEUTROPHILS % (MANUAL) 11 %
[2023-03-02 07:06] LABS: ANISOCYTOSIS SLIGHT; BLAST CELLS 40 %
[2023-03-02 08:00] VITALS: BP 123/60
[2023-03-02] MEDS ORDERED: NS IV 500 ML 500 ML IV SCH ×2 (08:00)
[2023-03-02] MEDS: meTOprolol TARTRATE (IR) 25 MG TABLET PO SCH ×2 (08:12→20:57)
[2023-03-02] MEDS: OXYBUTYNIN 5 MG TABLET PO SCH ×3 (08:13→20:57)
[2023-03-02] MEDS: ACYCLOVIR 400 MG CAPSULE/TABLET PO SCH ×2 (08:13→20:57)
[2023-03-02] MEDS: PANTOPRAZOLE 20 MG TABLET PO SCH (08:13)
[2023-03-02] MEDS: DOCUSATE SODIUM 100 MG CAPSULE PO SCH ×2 (08:14→20:57)
[2023-03-02] MEDS: SENNA W/DOCUSATE TABLET PO SCH ×2 (08:15→20:58)
[2023-03-02 08:19] VITALS: BP 123/60
[2023-03-02] MEDS ORDERED: FLUCONAZOLE 400 MG PO SCH (09:00)
[2023-03-02] MEDS ORDERED: NON-FORMULARY MEDICATION 1 EA EA (Oxybutynin Chloride (Oxybutynin Chloride ER) 15 MG) PO SCH (09:00)
[2023-03-02] MEDS ORDERED: OMEPRAZOLE 20 MG CAPSULE (NON-FORMULARY) PO SCH (09:00)
[2023-03-02 09:25] VITALS: BP 144/79
--- NOTE | 2023-03-02 09:28 | ST Cognitive Linguistic Eval ---
Speech Evaluation-General Medical Diagnosis Critical Illness Myopathy Onset Date: Feb 13, 2023 Therapy Diagnosis Therapy Diagnosis: Debility Precautions Precautions: Pressure Ulcer Referral Referring Physician: Dr. Sanchez Reason for Referral: Consult Medical History Pertinent Medical History: Atrial Fib, Arthritis, CAD, DM, GERD, HTN, Prostate CA Current History Current diagnosis of acute myeloid leukemia, trial chemo initiated 02/17/23 for 12 days. Pt also has >50lb weight loss over the past 6-12 months. Reviewed History: Yes Social History Current Living Status: Significant Other Speech PLF-Current Status Prior Level of Function Independent with all ADL's and IADL's Subjective The pt was alert and appropriate, participated well in assessment. Language Eval: Auditory Comprehends Simple Yes/No Ques: Functional Follows 1-Step Commands: Functional Follows Complex Directions: Functional Follows General Conversations: Functional Language Eval: Verbal Language Completes Spontaneous Greeting: Functional Word Finding: Functional Requests Basic Needs: Functional States Basic Personal Info: Functional Expresses Complex Ideas: Functional Language Evaluation: Reading Comprehends Multiple Sentences: Functional Cognitive Patient Orientation Fully oriented x4 Objective Cognitive Domain Attention: WNL Memory: WNL Executive Functions: WNL Objective Formal/Standardized Tests The SLUMS Examination was administered. Results The pt earned 28/30 on the assessment. Registration was 5/5, recall after delay was 5/5. Recalling details from a story was intact, reverse digit repetition also intact. Clock drawing was mildly reduced with poor number placement. Oral Motor/Speech Production Clear speech. No s/s oral-motor impairment. Speech Patient Assess Expression of Ideas/Wants: Expression (4) Understanding Verbal Content: Understands (4) Speech-Plan Treatment Plan Speech Therapy Treatment Plan: Discontinue ST Cognitive treatment is not indicated at this time. Frequency: Modified Program (IRF) Estimated Hrs Per Day: Other Rehab Potential: Good Time Speech Therapy Time In: 08:40 Speech Therapy Time Out: 09:10 DATE: Mar 02, 2023 Total Billed Time: 30 Billed Treatment Time 1 ZURDO FIGUEROA Mar 02, 2023 09:28
[2023-03-02 09:45] VITALS: BP 131/60
[2023-03-02 12:15] VITALS: BP 139/65
--- NOTE | 2023-03-02 12:16 | Wound Care Assessment ---
Wound Care Assessment Date Seen by Provider: Mar 02, 2023 Time Seen by Provider: 12:07 Chief Complaint Pressure ulcer sacrum/buttock HPI This pleasant 82 year old presents following hospital admit at [facility]. He has newly diagnosed AML with severe anemia and thrombocytopenia. Both will com plicate wound healing. He does have an area of ulceration on his sacrum/buttock that did bleed initially on assessment. As such, it is fully thickness. However, the area is primarily with stage 1 and 2 changes. He is high risk for bleeding with his severe thrombocytopenia and weakness. He reports a 50# weight loss in last 12 months and appears quite frail. Repositioning will be important as well as bowel/bladder training to avoid MASD from incontinence. Past Medical History: Admits Diabetes Type II, Admits Heart Disease, Admits Cancer, Treaments Abnormal weight loss, AML, h/o atrial fibrillation (anticoagulation held) Smoking Status: Former Smoker Recreational Drug Use: No Alcohol Use: Denies Use Review of Systems General: Fatigue, Appetite (poor) Genitourinary: Incontinence Neurological: Weakness Exam Vital Signs Date Time Temp Pulse Resp B/P (MAP) Pulse Ox O2 Delivery O2 Flow Rate FiO2 03/02/23 09:45 36.5 74 16 131/60 93 Room Air 03/01/23 18:53 97 Capillary Refill : General Appearance: WD/WN, no apparent distress HEENT: other (mild hard of hearing) Neck: full range of motion Cardiovascular: no edema Respiratory: no respiratory distress, no accessory muscle use Extremities: no pedal edema Neurologic/Psychiatric: alert, normal mood/affect, oriented x 3 Skin Problem Location: torso Skin Character: erythema Wound assessment: 4x3x0.1cm. The epithelialization is none. There is no tunneling or undermining. Drainage is medium and serosanguinous. Granulation is none. Necrotic is none. Margins flat. Some sloughing and non-blanching erythema in periwound Results Laboratory Tests 03/02/23 06:20: White Blood Count 11.9H, Red Blood Count 2.34L, Hemoglobin 7.8L, Hematocrit 23L, Mean Corpuscular Volume 100H, Mean Corpuscular Hemoglobin 33, Mean Corpuscular H emoglobin Concent 34, Red Cell Distribution Width 17.4H, Platelet Count 17*L, Mean Platelet Volume 10.5, Immature Granulocyte % (Auto) 7, Neutrophils (%) (Auto) 8L, Lymphocytes (%) (Auto) 28, Monocytes (%) (Auto) 53H, Eosinophils (%) (Auto) 5, Basophils (%) (Auto) 0, Neutrophils # (Auto) 0.9L, Lymphocytes # (Auto) 3.3, Monocytes # (Auto) 6.3H, Eosinophils # (Auto) 0.5H, Basophils # (Auto) 0.0, Immature Granulocyte # (Auto) 0.9H, Neutrophils % (Manual) 11, Lymphocytes % (Manual) 32, Monocytes % (Manual) 13, Eosinophils % (Manual) 1, Metamyelocytes % 2, Band Neutrophils 1, Blast Cells 40, Percent Immature Platelet Fraction 8.3H, Anisocytosis SLIGHT, Sodium Level 140, Potassium Level 3.9, Chloride Level 106, Carbon Dioxide Level 26, Anion Gap 8, Blood Urea Nitrogen 15, Creatinine 0.96, Estimat Glomerular Filtration Rate 79, BU N/Creatinine Ratio 16, Glucose Level 97, Calcium Level 8.7, Corrected Calcium 9.5, Magnesium Level 2.1, Total Bilirubin 1.8H, Aspartate Amino Transf (AST/SGOT) 31, Alanine Aminotransferase (ALT/SGPT) 31, Alkaline Phosphatase 80, Total Protein 5.4L, Albumin 3.0L Assessment/Plan/Dx Assessment: 1. Stage 3 pressure ulcer sacrum/buttock 2. MASD (incontinence) 3. Abnormal weight loss 4. Severe anemia/thrombocytopenia 5. Moderate PEM 6. Generalized weakness Plan: 1. Cleanse with vashe. Barrier ointment and miconazole powder to sacrum/buttock. Secure with BFD and change twice daily and prn for soiling 2. Frequent changing/toileting to avoid moisture injury. Frequent repositioning to avoid further pressure injury 3. Encourage po intake 4. Defer to oncology/primary 5. As above 6. PT/OT as per primary DEBORA RICHARDSON MD Mar 02, 2023 12:16
[2023-03-02] MEDS: MICONAZOLE 2% POWDER 90 GM TOP SCH ×2 (12:30→21:01)
[2023-03-02] MEDS: LevoFLOXacin 750 MG TABLET PO SCH (12:31)
--- NOTE | 2023-03-02 13:14 | Occupational Ther Daily Note ---
OT Current Status-Daily Note Subjective Pt semi-reclined in bed with RN and at bedside. Pt consented to OT session this AM. Pain Numeric Pain Scale: 0-No Pain Location: No Pain Reported Mental Status/Objective Patient Orientation: Person, Place, Time, Situation, Normal For Age Attachments: IV ADL-Treatment Therapy Code Descriptions/Definitions Functional [place] Measure: 0=Not Assessed/NA 4=Minimal Assistance 1=Total Assistance 5=Supervision or Setup 2=Maximal Assistance 6=Modified [place] 3=Moderate Assistance 7=Complete IndependenceSCALE: Activities may be completed with or without assistive devices. 6-Dslevfcxlb-ambshog completes the activity by him/herself with no assistance from a helper. 5-Set-up or Clean-up Assistance-helper sets up or cleans up; patient completes activity. [place] assists only prior to or following the activity. 4-Supervision or Touching Assistance-helper provides verbal cues and/or touching/steadying and/or contact guard assistance as patient completes activity. Assistance may be provided throughout the activity or intermittently. 3-Partial/Moderate Assistance-helper does LESS THAN HALF the effort. [place] lifts, holds or supports trunk or limbs, but provides less than half the effort. 2-Substantial/Maximal Assistance-helper does MORE THAN HALF the effort. [place] lifts or holds trunk or limbs and provides more than half the effort. 6-Ptpzwhejc-vmrjif does ALL the effort. Patient does none of the effort to complete the activity. Or, the assistance of 2 or more helpers is required for the patient to complete the activity. If activity was not attempted, code reason: 7-Patient Refused. 9-Not Applicable-not attempted and the patient did not perform the activity before the current illness, exacerbation or injury. 10-Not Attempted due to Environmental Limitations-(lack of equipment, weather restraints, etc.). 88-Not Attempted due to Medical Conditions or Safety Concerns. Oral Hygiene (QC): 5 (Set-up A for cleaning dentures seated in WC at sink; increased time needed to complete task.) Bathing Location: L Arm, R Arm, L Upper Leg, R Upper Leg, Chest, Abdomen, Buttocks, Perineal Area Shower/Bathe Self (QC): 3 (Mod A for performing sponge bath seated in WC at sink; increased time needed to complete task secondary to fatigue. Pt able to perform sit<>stand with Min A x 1 to clean filipe area/buttocks; pt unbale to reach feet and would benefit from long handled sponge.) Upper Body Dressing (QC): 3 (Min A to don shirt seated in WC; verbal cues to pull shirt over abdomen and down in the back; pt required physical assistance to pull shirt down in the back.) Lower Body Dressing (QC): 3 (Mod A to don pants; pt required (A) to thread BLE's into pants legs; sit<>stand performed with Min A x 1 with pt requiring (A) to pull pants over hips.) Toileting Hygiene (QC): 3 (Min A for toileting; pt had a bowel movement/voided and was able to clean buttocks while seated on toilet with CGA for steadiness; pt required (A) to manage clothing.) Toilet Transfer (QC): 3 (SPT from WC<>BSC over toilet with Min A x 1 utilizing GB for safety) Pt required increased time to complete all ADLs during therapy session. Education OT Patient Education: Energy conservation, Modified ADL techniques, Progress toward Goal/Update tx plan, Purpose of tx/functional activities, Rehab process, Safety issues, Transfer techniques Teaching Recipient: Patient Teaching Methods: Demonstration, Discussion Response to Teaching: Verbalize Understanding, Return Demonstration, Reinforcement Needed OT Long-Term Goals Long-Term Goals Acute change in mental status: 0 Inattention: 2 Disorganized thinkin Altered level of consciousness: 0 Eating (QC): 6 Oral Hygiene (QC): 6 Toileting Hygiene (QC): 4 Shower/Bathe Self (QC): 5 Upper Body Dressing (QC): 6 Lower Body Dressing (QC): 4 On/Off Footwear (QC): 5 1=Demonstrate adherence to instructed precautions during ADL tasks. 2=Patient will verbalize/demonstrate understanding of assistive devices/modifications for ADL. 3=Patient will improve strength/tolerance for activity to enable patient to perform ADL's. OT Education/Plan Problem List/Assessment Assessment: Decreased Activ Tolerance, Decreased Safety Aware, Decreased UE Strength, Dependent Transfers, Edema, Impaired Bed Mobility, Impaired Funct Balance, Impaired I ADL's, Impaired Self-Care Skills Discharge Recommendations Plan/Recommendations: Continue POC Treatment Plan/Plan of Care Treatment,Training & Education: Yes Patient would benefit from OT for education, treatment and training to promote independence in ADL's, mobility, safety and/or upper extremity function for ADL's. Plan of Care: ADL Retraining, Caregiver Training, Functional Mobility, Group Exercise/Act as Ind, UE Funct Exercise/Act Treatment Duration: Mar 22, 2023 Frequency: At least 5 of 7 days/Wk (IRF) Estimated Hrs Per Day: 1.5 hours per day Agreement: Yes Rehab Potential: Good Ending session, pt remained seated in WC with needs/call light in reach awaiting next therapy session. Time Start Time: 09:30 Stop Time: 10:45 DATE: Mar 02, 2023 Total Time Billed (hr/min): 75 Billed Treatment Time 75 minutes ADL x 5 WHIT DE LEON OT Mar 02, 2023 13:14
--- NOTE | 2023-03-02 13:23 | Physical Therapy Daily Note ---
PT Daily Note-Current Subjective Pt sitting in w/c in room upon arrival. Pt agrees to PT. Pain Location: No Pain Reported Section J - Health Conditions 1. Rarely or not at all 2. Occasionally 3. Frequently 4. Almost constantly 8. Unable to answer Pain Effect on Sleep: 1 Pain Interference with Therapy: 1 Pain Interference w/Day-to-Day: 1 Mental Status Patient Orientation: Person, Place, Situation Attachments: IV Transfers SCALE: Activities may be completed with or without assistive devices. 5-Jlqpgvgfur-uaoapbf completes the activity by him/herself with no assistance from a helper. 5-Set-up or Clean-up Assistance-helper sets up or cleans up; patient completes activity. [place] assists only prior to or following the activity. 4-Supervision or Touching Assistance-helper provides verbal cues and/or touching/steadying and/or contact guard assistance as patient completes activity. Assistance may be provided throughout the activity or intermittently. 3-Partial/Moderate Assistance-helper does LESS THAN HALF the effort. [place] lifts, holds or supports trunk or limbs, but provides less than half the effort. 2-Substantial/Maximal Assistance-helper does MORE THAN HALF the effort. [place] lifts or holds trunk or limbs and provides more than half the effort. 9-Ofdueefig-dfjhqv does ALL the effort. Patient does none of the effort to complete the activity. Or, the assistance of 2 or more helpers is required for the patient to complete the activity. If activity was not attempted, code reason: 7-Patient Refused. 9-Not Applicable-not attempted and the patient did not perform the activity before the current illness, exacerbation or injury. 10-Not Attempted due to Environmental Limitations-(lack of equipment, weather restraints, etc.). 88-Not Attempted due to Medical Conditions or Safety Concerns. Sit to Stand (QC): 3 Chair/Wgv-qr-Pldxx Xfer(QC): 3 Weight Bearing Right Lower Extremity: Right Full Weight Bearing Left Lower Extremity: Left Full Weight Bearing Wheelchair Training Does the Pt Use a Wheelchair?: Yes Wheel 50 ft with 2 turns (QC): 4 Wheel 150 ft (QC): 4 Type of Wheelchair: Manual Exercises Seated Therapy Exercises: Ankle pumps, Long arc quads, Hip flexion, Hamstring Curls, Hip abd/add, Glut set Seated Reps: 15 NuStep Minutes: 10 NuStep Workload: 3 Treatments Pt propels w/c in hallway as SIDE STAPLER manages IV pole since pt is rec. blood. Pt completes SPT from w/c to NuStep to use then back after using. Pt completes Seated Ex at w/c level until WC Nurse asks for pt to return to room to check sacral wound w/WC . Pt TF from w/c to EOB via SPT then Supine & rolls into position. All needs met, call light in bed. Nurse & Dr in room at end of tx. Assessment Current Status: Fair Progress Pt demonstrates fatigue during tx and takes RB as needed. PT Owner Operator Goals [facility] Goals PT [facility] Goals Time Frame: Mar 15, 2023 Roll Left & Right (QC): 6 (Pt will be Mod I with all aspects of functional mobility to be able to safely return home with spouse. ) Sit to Lying (QC): 6 (Pt will be Mod I with all aspects of functional mobility to be able to safely return home with spouse. ) Lying-Sitting on Side/Bed(QC): 6 (Pt will be Mod I with all aspects of functional mobility to be able to safely return home with spouse. ) Sit to Stand (QC): 6 (Pt will be Mod I with all aspects of functional mobility to be able to safely return home with spouse. ) Chair/Shv-el-Cifph Xfer(QC): 6 (Pt will be Mod I with all aspects of functional mobility to be able to safely return home with spouse. ) Toilet Transfer (QC): 6 (Pt will be Mod I with all aspects of functional mobility to be able to safely return home with spouse. ) Car Transfer (QC): 6 (Pt will be Mod I with all aspects of functional mobility to be able to safely return home with spouse. ) Does the Patient Walk: Yes Walk 10 feet (QC): 6 (Pt will be Mod I with all aspects of functional mobility to be able to safely return home with spouse. ) Walk 50ft with 2 Turns (QC): 6 (Pt will be Mod I with all aspects of functional mobility to be able to safely return home with spouse. ) Walk 150 ft (QC): 6 (Pt will be Mod I with all aspects of functional mobility to be able to safely return home with spouse. ) Walking 10ft on Uneven Surface: 6 (Pt will be Mod I with all aspects of functional mobility to be able to safely return home with spouse. ) 1 Step (curb) (QC): 6 (Pt will be Mod I with all aspects of functional mobility to be able to safely return home with spouse. ) 4 Steps (QC): 6 (Pt will be Mod I with all aspects of functional mobility to be able to safely return home with spouse. ) 12 Steps (QC): 6 (Pt will be Mod I with all aspects of functional mobility to be able to safely return home with spouse. ) Picking up an Object (QC): 6 (Pt will be Mod I with all aspects of functional mobility to be able to safely return home with spouse. With tax agent ) Does the Pt use WC or Scooter?: Yes Wheel 50 feet with 2 turns (QC: 6 (Pt will be Mod I with all aspects of fu nctional mobility to be able to safely return home with spouse. ) Type: Manual Wheel 150 feet: 6 (Pt will be Mod I with all aspects of functional mobility to be able to safely return home with spouse. ) Type: Manual PT Plan Problem List Problem List: Activity Tolerance, Functional Strength, Transfer Treatment/Plan Treatment Plan: Continue Plan of Care Treatment Plan: Bed Mobility, Education, Functional Activity Dianne, Functional Strength, Group Therapy, Gait, Safety, Therapeutic Exercise, Transfers Treatment Duration: Mar 15, 2023 Frequency: At least 5 of 7 days/Wk (IRF) Estimated Hrs Per Day: 1.5 hours per day Patient and/or Family Agrees t: Yes Safety Risks/Education Patient Education: Transfer Techniques, Correct Positioning Teaching Recipient: Patient Teaching Methods: Discussion Response to Teaching: Verbalize Understanding Time Time In: 1045 Time Out: 1200 DATE: Mar 02, 2023 Total Billed Treatment Time: 75 Total Billed Treatment 1, WCH x2 (30m), EX x2 (30m) & FA (15m) JESSI STEVE SIDE STAPLER Mar 02, 2023 13:23
--- NOTE | 2023-03-02 17:20 | Physical Therapy Daily Note ---
PT Daily Note-Current Subjective Pt is agreeable to PT. Pt reports LBP at 4/10. Pain Numeric Pain Scale: 4 Location: Lower Location Body Site: Back Section J - Health Conditions 1. Rarely or not at all 2. Occasionally 3. Frequently 4. Almost constantly 8. Unable to answer Pain Effect on Sleep: 1 Pain Interference with Therapy: 1 Pain Interference w/Day-to-Day: 1 Transfers SCALE: Activities may be completed with or without assistive devices. 8-Jqpjueoejt-grruegu completes the activity by him/herself with no assistance from a helper. 5-Set-up or Clean-up Assistance-helper sets up or cleans up; patient completes activity. [place] assists only prior to or following the activity. 4-Supervision or Touching Assistance-helper provides verbal cues and/or touching/steadying and/or contact guard assistance as patient completes activity. Assistance may be provided throughout the activity or intermittently. 3-Partial/Moderate Assistance-helper does LESS THAN HALF the effort. [place] lifts, holds or supports trunk or limbs, but provides less than half the effort. 2-Substantial/Maximal Assistance-helper does MORE THAN HALF the effort. [place] lifts or holds trunk or limbs and provides more than half the effort. 2-Ahzgbrgza-vlttcy does ALL the effort. Patient does none of the effort to comp lete the activity. Or, the assistance of 2 or more helpers is required for the patient to complete the activity. If activity was not attempted, code reason: 7-Patient Refused. 9-Not Applicable-not attempted and the patient did not perform the activity before the current illness, exacerbation or injury. 10-Not Attempted due to Environmental Limitations-(lack of equipment, weather restraints, etc.). 88-Not Attempted due to Medical Conditions or Safety Concerns. Lying to Sitting/Side of Bed(Q: 4 Sit to Stand (QC): 3 Chair/Yrt-cq-Gxcen Xfer(QC): 4 Weight Bearing Right Lower Extremity: Right Full Weight Bearing Left Lower Extremity: Left Full Weight Bearing Gait Training Does the Patient Walk?: Yes Distance: 5ft Gait Assistive Device: FWW Treatments Pt completed supine B LE Ther Ex x 15 reps each. Pt completed supine to sit with SBA (HOB elevated). Pt completed sit to stand with Min A. Pt ambulated 5ft with the FWW and CGA, from bed to recliner. Pt sitting up in the recliner upon completion of PT, with call light in reach and all needs met. Assessment Current Status: Good Progress Pt tolerated PT well PT Jail Goals Sole Molding Machine Operator Goals PT Sole Molding Machine Operator Goals Time Frame: Mar 15, 2023 Roll Left & Right (QC): 6 (Pt will be Mod I with all aspects of functional mobility to be able to safely return home with spouse. ) Sit to Lying (QC): 6 (Pt will be Mod I with all aspects of functional mobility to be able to safely return home with spouse. ) Lying-Sitting on Side/Bed(QC): 6 (Pt will be Mod I with all aspects of functional mobility to be able to safely return home with spouse. ) Sit to Stand (QC): 6 (Pt will be Mod I with all aspects of functional mobility to be able to safely return home with spouse. ) Chair/Jtm-dj-Ffzax Xfer(QC): 6 (Pt will be Mod I with all aspects of functional mobility to be able to safely return home with spouse. ) Toilet Transfer (QC): 6 (Pt will be Mod I with all aspects of functional mobility to be able to safely return home with spouse. ) Car Transfer (QC): 6 (Pt will be Mod I with all aspects of functional mobility to be able to safely return home with spouse. ) Does the Patient Walk: Yes Walk 10 feet (QC): 6 (Pt will be Mod I with all aspects of functional mobility to be able to safely return home with spouse. ) Walk 50ft with 2 Turns (QC): 6 (Pt will be Mod I with all aspects of functional mobility to be able to safely return home with spouse. ) Walk 150 ft (QC): 6 (Pt will be Mod I with all aspects of functional mobility to be able to safely return home with spouse. ) Walking 10ft on Uneven Surface: 6 (Pt will be Mod I with all aspects of functional mobility to be able to safely return home with spouse. ) 1 Step (curb) (QC): 6 (Pt will be Mod I with all aspects of functional mobility to be able to safely return home with spouse. ) 4 Steps (QC): 6 (Pt will be Mod I with all aspects of functional mobility to be able to safely return home with spouse. ) 12 Steps (QC): 6 (Pt will be Mod I with all aspects of functional mobility to be able to safely return home with spouse. ) Picking up an Object (QC): 6 (Pt will be Mod I with all aspects of functional mobility to be able to safely return home with spouse. With drama director ) Does the Pt use WC or Scooter?: Yes Wheel 50 feet with 2 turns (QC: 6 (Pt will be Mod I with all aspects of functional mobility to be able to safely return home with spouse. ) Type: Manual Wheel 150 feet: 6 (Pt will be Mod I with all aspects of functional mobility to be able to safely return home with spouse. ) Type: Manual PT Plan Problem List Problem List: Activity Tolerance, Functional Strength, Safety, Balance, Gait, Transfer, Bed Mobility, ROM Treatment/Plan Treatment Plan: Continue Plan of Care Treatment Plan: Bed Mobility, Education, Functional Activity Dianne, Functional Strength, Group Therapy, Gait, Safety, Therapeutic Exercise, Transfers Treatment Duration: Mar 15, 2023 Frequency: At least 5 of 7 days/Wk (IRF) Estimated Hrs Per Day: 1.5 hours per day Patient and/or Family Agrees t: Yes Safety Risks/Education Patient Education: Gait Training, Transfer Techniques, Correct Positioning, Safety Issues Teaching Recipient: Patient Teaching Methods: Demonstration Response to Teaching: Verbalize Understanding, Return Demonstration, Reinforcement Needed Discharge Recommendations Therapy Discharge Recommendati: Home & Family Equpiment Recommendations-D/C: None Discharge Status/Home Program Cont per POC Barriers to Progress Proximal weakness Target Placement Home Time Time In: 1709 Time Out: 1729 DATE: Mar 02, 2023 Total Billed Treatment Time: 20 Total Billed Treatment 20 min 1 visit FA x 1 CARRINGTON GUTIERRES PT Mar 02, 2023 17:20
[2023-03-02] MEDS: FINASTERIDE 5 MG TABLET PO SCH (18:16)
[2023-03-02] MEDS: TAMSULOSIN 0.4 MG (FLOMAX) CAP PO SCH (18:16)
[2023-03-02 19:32] VITALS: BP 135/62
[2023-03-02] MEDS: HYPOCHLOROUS ACID/NaCl WOUND SOLN 250 ML IR PRN (21:01)
--- NOTE | 2023-03-03 05:15 | PM&R Progress Note ---
Subjective HPI/CC On Admission Date Seen by Provider: Mar 03, 2023 Time Seen by Provider: 12:30 Subjective/Events-last exam 03/03/2023: Patient doing much better Slow recovery Dr. Anderson will be consulted and he will manage the transfusion requirement 03/02/2023: Patient still very weak Giving 1 unit of blood due to hemoglobin 7.8 Slow recovery Platelet count good Maintain on Levaquin we will check stop date soon Review of Systems General: Fatigue, Malaise Objective Exam Vital Signs Vital Signs Date Time Temp Pulse Resp B/P (MAP) Pulse Ox O2 Delivery O2 Flow Rate FiO2 03/03/23 09:00 Room Air 03/03/23 07:30 36.8 74 14 148/72 (97) 93 03/01/23 18:53 97 Capillary Refill : General Appearance: No Apparent Distress, WD/WN, Chronically ill HEENT: PERRL/EOMI, Normal ENT Inspection, Pharynx Normal Neck: Full Range of Motion, Normal Inspection, Non Tender, Supple, Carotid Bruit Respiratory: Chest Non Tender, Lungs Clear, Normal Breath Sounds, No Accessory Muscle Use, No Respiratory Distress Cardiovascular: Regular Rate, Rhythm, No Edema, No Gallop, No JVD, No Murmur, Normal Peripheral Pulses Gastrointestinal: Normal Bowel Sounds, No Organomegaly, No Pulsatile Mass, Non Tender, Soft Back: Normal Inspection, No CVA Tenderness, No Vertebral Tenderness Extremity: Normal Capillary Refill, Normal Inspection, Normal Range of Motion, Non Tender, No Calf Tenderness, No Pedal Edema Neurologic/Psychiatric: Alert, Oriented x3, precast worker II-XII Norm as Tested, Abnormal Gait, Depressed Affect, Motor Weakness (generalized) Skin: Normal Color, Warm/Dry Lymphatic: No Adenopathy Results/Procedures Lab Patient resulted labs reviewed. FIM Transfers Therapy Code Descriptions/Definitions Functional [place] Measure: 0=Not Assessed/NA 4=Minimal Assistance 1=Total Assistance 5=Supervision or Setup 2=Maximal Assistance 6=Modified [place] 3=Moderate Assistance 7=Complete IndependenceSCALE: Activities may be completed with or without assistive devices. 9-Hicwafoaxq-niggjnq completes the activity by him/herself with no assistance from a helper. 5-Set-up or Clean-up Assistance-helper sets up or cleans up; patient completes activity. [place] assists only prior to or following the activity. 4-Supervision or Touching Assistance-helper provides verbal cues and/or touching/steadying and/or contact guard assistance as patient completes ac tivity. Assistance may be provided throughout the activity or intermittently. 3-Partial/Moderate Assistance-helper does LESS THAN HALF the effort. [place] lifts, holds or supports trunk or limbs, but provides less than half the effort. 2-Substantial/Maximal Assistance-helper does MORE THAN HALF the effort. [place] lifts or holds trunk or limbs and provides more than half the effort. 2-Oghdpliqm-ditnzh does ALL the effort. Patient does none of the effort to complete the activity. Or, the assistance of 2 or more helpers is required for the patient to complete the activity. If activity was not attempted, code reason: 7-Patient Refused. 9-Not Applicable-not attempted and the patient did not perform the activity before the current illness, exacerbation or injury. 10-Not Attempted due to Environmental Limitations-(lack of equipment, weather restraints, etc.). 88-Not Attempted due to Medical Conditions or Safety Concerns. Roll Left to Right (QC): 3 (Min A ) Sit to Lying (QC): 3 (Min A ) Sit to Stand (QC): 3 Chair/Plg-mb-Zcket Xfer(QC): 4 Car Transfer (QC): 3 (Min A ) Gait Training Does the Patient Walk?: Yes Distance: 5ft Walk 10 feet (QC): 3 (Min A ) Walk 50 ft with 2 Turns(QC): 88 (Pt unable to walk more than 15ft with the FWW, or negotiate stairs, due to poor core and hip strength. ) Walk 150 ft (QC): 88 (Pt unable to walk more than 15ft with the FWW, or negotiate stairs, due to poor core and hip strength. ) Walking 10ft/uneven surface-QC: 3 (Min A ) Gait Assistive Device: FWW Wheelchair Training Does the Pt Use a Wheelchair?: Yes Distance: 50ft Wheel 50 ft with 2 turns (QC): 4 Wheel 150 ft (QC): 4 Type of Wheelchair: Manual Stair Training 1 Step (curb) (QC): 3 (Min A ) 4 Steps (QC): 88 (Pt unable to walk more than 15ft with the FWW, or negotiate stairs, due to poor core and hip strength. ) 12 Steps (QC): 88 (Pt unable to walk more than 15ft with the FWW, or negotiate stairs, due to poor core and hip strength. ) Balance Picking up an Object (QC): 3 (Min A with lands resource manager ) ADL-Treatment Eating (QC): 5 (set-up A to open packages) Oral Hygiene (QC): 5 (Set-up A for cleaning dentures seated in WC at sink; increased time needed to complete task.) Bathing Location: L Arm, R Arm, L Upper Leg, R Upper Leg, Chest, Abdomen, Buttocks, Perineal Area Shower/Bathe Self (QC): 3 (Mod A for performing sponge bath seated in WC at sink; increased time needed to complete task secondary to fatigue. Pt able to perform sit<>stand with Min A x 1 to clean filipe area/buttocks; pt unbale to reach feet and would benefit from long handled sponge.) Upper Body Dressing (QC): 3 (Min A to don shirt seated in WC; verbal cues to pull shirt over abdomen and down in the back; pt required physical assistance to pull shirt down in the back.) Lower Body Dressing (QC): 3 (Mod A to don pants; pt required (A) to thread BLE's into pants legs; sit<>stand performed with Min A x 1 with pt requiring (A) to pull pants over hips.) On/Off Footwear (QC): 2 (Sub/max A donning/doffing socks seated at EOB) Toileting Hygiene (QC): 3 (Min A for toileting; pt had a bowel movement/voided and was able to clean buttocks while seated on toilet with CGA for steadiness; pt required (A) to manage clothing.) Toilet Transfer (QC): 3 (SPT from WC<>BSC over toilet with Min A x 1 utilizing GB for safety) Assessment/Plan Assessment and Plan Assess & Plan/Chief Complaint Assessment: Critical illness myopathy AML Anemia Thrombocytopenia AF CAD BPH HLP HTN Plan: Monitor closely Fall risk Pain meds Transfuse prn Hold ASA and OAC 03/02/2023: Supportive care Transfusions as necessary Home meds Hold anticoagulation and aspirin 03/03/2023: Supportive care Consult Dr. Anderson (1) Myopathy (2) Acute myelogenous leukemia Status: Acute (3) Atrial fibrillation Status: Chronic (4) CAD (coronary artery disease) (5) HTN (hypertension) Status: Chronic (6) BPH (benign prostatic hyperplasia) Status: Chronic JNAEY NAQVI DO Mar 03, 2023 05:15
[2023-03-03] MEDS: CATHETER FLUSH 10 ML SYR IVP SCH ×3 (06:30→21:38)
[2023-03-03] MEDS: THERAPEUTIC MULTIVITAMIN W/MINERALS TABLET PO SCH (06:30)
[2023-03-03 07:30] VITALS: BP 148/72
[2023-03-03] MEDS: SENNA W/DOCUSATE TABLET PO SCH ×2 (08:05→21:00)
[2023-03-03] MEDS: ACYCLOVIR 400 MG CAPSULE/TABLET PO SCH ×2 (08:05→21:28)
[2023-03-03] MEDS: meTOprolol TARTRATE (IR) 25 MG TABLET PO SCH ×2 (08:05→21:29)
[2023-03-03] MEDS: OXYBUTYNIN 5 MG TABLET PO SCH ×3 (08:05→21:28)
[2023-03-03] MEDS: PANTOPRAZOLE 20 MG TABLET PO SCH (08:05)
[2023-03-03] MEDS: DOCUSATE SODIUM 100 MG CAPSULE PO SCH ×2 (08:05→21:00)
[2023-03-03] MEDS: MICONAZOLE 2% POWDER 90 GM TOP SCH ×2 (08:06→21:55)
[2023-03-03] MEDS: LevoFLOXacin 750 MG TABLET PO SCH (12:04)
--- NOTE | 2023-03-03 13:31 | Occupational Ther Daily Note ---
OT Current Status-Daily Note Subjective Pt agreed to OT session this A.M. Pain Numeric Pain Scale: 0-No Pain Location: No Pain Reported Mental Status/Objective Patient Orientation: Person, Place, Time, Situation Attachments: IV Pt noted to be delayed at times when therapist asks pt questions. Pt eventually will answer questions, but delayed responses noted. ADL-Treatment Pt fatigues every quickly and easily and requires increased amount of time to complete ADLs this session. Pt requires frequent seated rest breaks due to pt being deconditioned. No SOB noted while performing ADLs. Therapy Code Descriptions/Definitions Functional Warrior Measure: 0=Not Assessed/NA 4=Minimal Assistance 1=Total Assistance 5=Supervision or Setup 2=Maximal Assistance 6=Modified Warrior 3=Moderate Assistance 7=Complete IndependenceSCALE: Activities may be completed with or without assistive devices. 2-Xyssifoctn-anmlerg completes the activity by him/herself with no assistance from a helper. 5-Set-up or Clean-up Assistance-helper sets up or cleans up; patient completes activity. [place] assists only prior to or following the activity. 4-Supervision or Touching Assistance-helper provides verbal cues and/or touching/steadying and/or contact guard assistance as patient completes activity. Assistance may be provided throughout the activity or intermittently. 3-Partial/Moderate Assistance-helper does LESS THAN HALF the effort. [place] lifts, holds or supports trunk or limbs, but provides less than half the effort. 2-Substantial/Maximal Assistance-helper does MORE THAN HALF the effort. [place] lifts or holds trunk or limbs and provides more than half the effort. 3-Bfxeamvge-zruzxr does ALL the effort. Patient does none of the effort to complete the activity. Or, the assistance of 2 or more helpers is required for the patient to complete the activity. If activity was not attempted, code reason: 7-Patient Refused. 9-Not Applicable-not attempted and the patient did not perform the activity bef ore the current illness, exacerbation or injury. 10-Not Attempted due to Environmental Limitations-(lack of equipment, weather r estraints, etc.). 88-Not Attempted due to Medical Conditions or Safety Concerns. Oral Hygiene (QC): 6 ((I) with oral care seated at sink with pt cleaning dentures and combing hair; pt required no cues to complete task. Increased time needed secondary to fatigue.) Bathing Location: L Arm, R Arm, L Upper Leg, R Upper Leg, L Lower Leg (inclu ding foot), R Lower Leg (including foot), Chest, Abdomen, Buttocks, Perineal Area Shower/Bathe Self (QC): 3 (Partial/mod A for bathing seated on built in shower bench with pt utilizing hand held shower head, GB's, and long handled sponge. ) Upper Body Dressing (QC): 3 (Partial/mod A for UBD with pt requiring (A) to pull shirt down in the back while seated in WC. Increased amount of time needed to complete task secondary to fatigue.) Lower Body Dressing (QC): 3 (Partial/mod A for LBD with pt requiring (A) to thread RLE into pants leg. Therapist educated pt on utilizing circulation supervisor with pt declining. Therapist demonstrated how to use device with pt continuing to decline. Pt performed sit<>stand from WC with Min A x 1 to pull pants over hips.) On/Off Footwear: 3 (Partial/mod A for donning/doffing footwear; pt utilizing dressing stick to doff socks seated in WC with SBA; pt too fatigued to don sock seated in WC which required therapist to jennie (B) socks with total A) Other Treatment Supine>sit at EOB performed with SBA with pt utilizing bed rails SPT from EOB<>WC performed with Min A x 1 with RW ADLs performed during session (see scores above) Sit>supine position performed with Min A to manage BLE's Education OT Patient Education: Energy conservation, Instructions to caregiver, Modified ADL techniques, Progress toward Goal/Update tx plan, Purpose of tx/functional activities, Rehab process, Safety issues, Transfer techniques, Use of adapted equipment Teaching Recipient: Patient, Family Teaching Methods: Demonstration, Discussion Response to Teaching: Verbalize Understanding, Return Demonstration, Reinforcement Needed OT Longterm Goals Pole Cutter Goals Acute change in mental status: 0 Inattention: 2 Disorganized thinkin Altered level of consciousness: 0 Eating (QC): 6 Oral Hygiene (QC): 6 Toileting Hygiene (QC): 4 Shower/Bathe Self (QC): 5 Upper Body Dressing (QC): 6 Lower Body Dressing (QC): 4 On/Off Footwear (QC): 5 1=Demonstrate adherence to instructed precautions during ADL tasks. 2=Patient will verbalize/demonstrate understanding of assistive dev ices/modifications for ADL. 3=Patient will improve strength/tolerance for activity to enable patient to perform ADL's. OT Education/Plan Problem List/Assessment Assessment: Decreased Activ Tolerance, Decreased UE Strength, Edema, Impaired Bed Mobility, Impaired Funct Balance, Impaired I ADL's, Impaired Self-Care Skills Discharge Recommendations Plan/Recommendations: Continue POC Treatment Plan/Plan of Care Patient would benefit from OT for education, treatment and training to promote independence in ADL's, mobility, safety and/or upper extremity function for ADL's. Plan of Care: ADL Retraining, Caregiver Training, Functional Mobility, Group Exercise/Act as Ind, UE Funct Exercise/Act Treatment Duration: Mar 22, 2023 Frequency: At least 5 of 7 days/Wk (IRF) Estimated Hrs Per Day: 1.5 hours per day Agreement: Yes Rehab Potential: Good Ending session, pt remained semi-reclined in bed with needs/call light in reach. Time Start Time: 09:15 Stop Time: 10:45 DATE: Mar 03, 2023 Total Time Billed (hr/min): 90 Billed Treatment Time 90 minutes ADL 6 WHIT DE LEON OT Mar 03, 2023 13:31
--- NOTE | 2023-03-03 15:19 | Physical Therapy Daily Note ---
PT Daily Note-Current Subjective Patient session split between two separate encounters, an initial 60 min session ([id number]) and following 30 minute session ([id number]). Sessions split due to patient tolerance to maximize benefit with 29 minute rest in between. Initial encounter patient supine in bed with HOB slightly elevated. Patient education on afternoon session and session plan. Patient agreeable to participate. Patient pain rated at 0/10 initially, increasing to 4/10 with session activity and returning to 1/10 at end of session. Second encounter patient supine in bed when PT enters room with pain rating of 1/10, increasing to 4/10 during session and returning to baseline of 1/10 when patient positioned in recliner with legs elevated, pillow under legs, and pillow behind head with all needs met and within reach. Pain Section J - Health Conditions 1. Rarely or not at all 2. Occasionally 3. Frequently 4. Almost constantly 8. Unable to answer Pain Effect on Sleep: 1 Pain Interference with Therapy: 1 Pain Interference w/Day-to-Day: 1 Mental Status Patient Orientation: Person, Place, Time, Situation Transfers SCALE: Activities may be completed with or without assistive devices. 6-Roonrifrbj-anfkqvg completes the activity by him/herself with no assistance from a helper. 5-Set-up or Clean-up Assistance-helper sets up or cleans up; patient completes activity. [place] assists only prior to or following the activity. 4-Supervision or Touching Assistance-helper provides verbal cues and/or touching/steadying and/or contact guard assistance as patient completes activity. Assistance may be provided throughout the activity or intermittently. 3-Partial/Moderate Assistance-helper does LESS THAN HALF the effort. [place] lifts, holds or supports trunk or limbs, but provides less than half the effort. 2-Substantial/Maximal Assistance-helper does MORE THAN HALF the effort. [place] lifts or holds trunk or limbs and provides more than half the effort. 1-Oxiyjcmny-kreumj does ALL the effort. Patient does none of the effort to complete the activity. Or, the assistance of 2 or more helpers is required for the patient to complete the activity. If activity was not attempted, code reason: 7-Patient Refused. 9-Not Applicable-not attempted and the patient did not perform the activity before the current illness, exacerbation or injury. 10-Not Attempted due to Environmental Limitations-(lack of equipment, weather restraints, etc.). 88-Not Attempted due to Medical Conditions or Safety Concerns. Roll Left & Right (QC): 4 Sit to Lying (QC): 4 Lying to Sitting/Side of Bed(Q: 4 Sit to Stand (QC): 4 Chair/Hin-ug-Evwtx Xfer(QC): 3 Toilet Transfer (QC): 3 Car Transfer (QC): 88 Therex performed during both interactions. Patient participated in functional bed mobility and repo practice with use of bed railing focusing on improving positioning, performance, sequence and safety for improved skin preservation and to promote independence in functional task. Patient participated in functional sit <> stand transfer practice from surfaces of variable heights and compliance req reduced assist from elevated and firm surfaces at CGA-SBA, increasing to min-modA from lower, more compliant surfaces. Patient progressed to SPT and step-to transfer practice with use of FWW req similar levels of assist to initiate transfer, CGA to align with surface and CGA-Lili to control descent. Patient cued for improved positioning, hand/foot placement, achieving standing position at AD, alignment with surface and controlling descent with functional practice. Weight Bearing Right Lower Extremity: Right Full Weight Bearing Left Lower Extremity: Left Full Weight Bearing Gait Training Does the Patient Walk?: Yes Walk 10 feet (QC): 4 Walk 50 ft with 2 Turns(QC): 88 Walk 150 ft (QC): 88 Walking 10ft/uneven surface-QC: 88 Patient participated in functional gait training with use of FWW focusing on improving stepping mechanics, amb posture, maintaining COG/KERRY, and AD management. Gait training performed during second session achieving distances of 40ft, 30ft, 30ft, 20ft, 10ft with CGA to gait belt. w/c follow utilized for RB and safety. Exercises TherEx performed during initial session. Patient perform supine therEx including: ankle df/pf 2 sets of 20 heel slides 2 sets of 20 supine TA 2 sets of 15 :05 hold supine 1/4 bridge c TA x2 sets of 10 supine hip fallouts x2 sets of 15 ea seated LAQ x2 sets of 15 seated SL march x2 sets of 15 seated TA x2 sets of 10 :05 hold seated ankle df/pf x2 sets of 20 performed to promote improved functional strength endurance and mobility. Neuromuscular NMR performed during initial session. Patient participated in bouts of static standing balance with variable UE support and alternating foot positioning focusing on improving postural control, maintaining COG/KERRY, and reactive balance. Performed on firm surfaces, req increased assist with progressive challenges. Patient progressed to dynamic challenges including weight shifting, reaching and stepping challenges, presenting with additive difficulty and reduced tolerance. Assessment Current Status: Good Progress Patient tolerated split sessions well without adverse rxn, reporting mild pain exacerbation with activity, returning to baseline with rest. From evaluative assessment, patient demonstrates continuous progress and demonstrates benefit from therapeutic intervention and progression. At end of final session, patient supine in recliner, air cushion underneath, heels floated on pillows and all needs met or within reach. PT Process Stripper Goals Process Stripper Goals PT Care Home Goals Time Frame: Mar 15, 2023 Roll Left & Right (QC): 6 (Pt will be Mod I with all aspects of functional mobility to be able to safely return home with spouse. ) Sit to Lying (QC): 6 (Pt will be Mod I with all aspects of functional mobility to be able to safely return home with spouse. ) Lying-Sitting on Side/Bed(QC): 6 (Pt will be Mod I with all aspects of functional mobility to be able to safely return home with spouse. ) Sit to Stand (QC): 6 (Pt will be Mod I with all aspects of functional mobility to be able to safely return home with spouse. ) Chair/Hcx-hy-Mvura Xfer(QC): 6 (Pt will be Mod I with all aspects of functional mobility to be able to safely return home with spouse. ) Toilet Transfer (QC): 6 (Pt will be Mod I with all aspects of functional mobility to be able to safely return home with spouse. ) Car Transfer (QC): 6 (Pt will be Mod I with all aspects of functional mobility to be able to safely return home with spouse. ) Does the Patient Walk: Yes Walk 10 feet (QC): 6 (Pt will be Mod I with all aspects of functional mobility to be able to safely return home with spouse. ) Walk 50ft with 2 Turns (QC): 6 (Pt will be Mod I with all aspects of functional mobility to be able to safely return home with spouse. ) Walk 150 ft (QC): 6 (Pt will be Mod I with all aspects of functional mobility to be able to safely return home with spouse. ) Walking 10ft on Uneven Surface: 6 (Pt will be Mod I with all aspects of functional mobility to be able to safely return home with spouse. ) 1 Step (curb) (QC): 6 (Pt will be Mod I with all aspects of functional mobility to be able to safely return home with spouse. ) 4 Steps (QC): 6 (Pt will be Mod I with all aspects of functional mobility to be able to safely return home with spouse. ) 12 Steps (QC): 6 (Pt will be Mod I with all aspects of functional mobility to be able to safely return home with spouse. ) Picking up an Object (QC): 6 (Pt will be Mod I with all aspects of functional mobility to be able to safely return home with spouse. With sergeant at arms ) Does the Pt use WC or Scooter?: Yes Wheel 50 feet with 2 turns (QC: 6 (Pt will be Mod I with all aspects of functional mobility to be able to safely return home with spouse. ) Type: Manual Wheel 150 feet: 6 (Pt will be Mod I with all aspects of functional mobility to be able to safely return home with spouse. ) Type: Manual PT Plan Treatment/Plan Treatment Plan: Continue Plan of Care Treatment Plan: Bed Mobility, Education, Functional Activity Dianne, Functional Strength, Group Therapy, Gait, Safety, Therapeutic Exercise, Transfers Treatment Duration: Mar 15, 2023 Frequency: At least 5 of 7 days/Wk (IRF) Estimated Hrs Per Day: 1.5 hours per day Patient and/or Family Agrees t: Yes Time Time In: 1310 Time Out: 1410 DATE: Mar 03, 2023 Total Billed Treatment Time: 90 Total Billed Treatment 2 separate encounters initial [id number] (60 mins) second 1439 - 1509 (30 mins) (90 minutes total) 2 EX 1 NM 1 GT 2 FA SEBASTIAN PALOMO PT Mar 03, 2023 15:19
[2023-03-03] MEDS: FINASTERIDE 5 MG TABLET PO SCH (17:06)
[2023-03-03] MEDS: TAMSULOSIN 0.4 MG (FLOMAX) CAP PO SCH (17:06)
--- NOTE | 2023-03-03 18:03 | CONSULTATION REPORT ---
DATE OF SERVICE: 03/03/2023 PHYSICIAN REQUESTING CONSULTATION: Mer Sanchez DO PRIMARY PHYSICIAN: Bri Shetty MD HEMATOLOGY: Britt Stevens MD at . Patient is admitted to room 232. IMPRESSION: 1. 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 2. Status post palliative chemotherapy with azacitidine x7 days, completed at . 3. Pancytopenia due to above. 4. Classical cytogenetics as well as NGS studies drawn at , pending at this point. 5. Deconditioning. RECOMMENDATIONS: 1. Monitor CBC and BMP on Mondays, Wednesdays and Fridays with p.r.n. transfusion to maintain hemoglobin 8 g/dL, and platelets more than 10,000. 2. Continue prophylactic antibiotics, antiviral and antifungal agents. 3. Avoid antiplatelet and anticoagulant agents. 4. Continue physical and occupational therapy as you are doing. 5. If his performance status improves, he may be a candidate for further chemotherapy. BRIEF HISTORY: The patient is an 82-year-old male who was brought to the emergency room at [facility] with a fairly rapidly worsening fatigue. He was evaluated and found to have abnormal blood counts, the possibility of acute leukemia. He was transferred to [facility], completed a bone marrow aspiration biopsy with the diagnosis of AML. Peripheral blood flow cytometry and other evaluation showed -7 indicating a secondary leukemia. He was started on palliative chemotherapy with azacitidine and completed 1 week of treatment. Because of deconditioning, he was transferred to acute rehabilitation unit at [facility]. Hematology consultation was requested for concurrent care locally. PAST MEDICAL HISTORY: Significant for hypertension, diabetes mellitus type 2 and coronary artery disease. He had a 3-vessel CABG in 2007. Since then, he required 2 stent placements. He has history of atrial fibrillation and was on anticoagulation prior to diagnosis. Aspirin and anticoagulation was discontinued at the time of diagnosis and pancytopenia. He has history of hypertension. PAST SURGICAL HISTORY: Prior surgeries include cholecystectomy in the remote past, bilateral cataract surgery, triple vessel coronary artery bypass surgery and a cardiac catheterization with stent placement. FAMILY HISTORY: His father of leukemia at 90 years of age. His son was diagnosed with Burkitt's lymphoma at 45 years of age and . No other malignancies in the family that the patient knows of. SOCIAL HISTORY: The patient is and lives in [place], [place]. He had two sons, one of whom with Burkitt's lymphoma at 45 years. He had a son is a railroad brake repairer and lives in [place]. 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 Denies any significant tobacco, alcohol, or recreational drug use. REVIEW OF SYSTEMS: Significant for fatigue. He denied any fevers or obvious bleeding. He has tendency to bruise easy. No chest pain, palpitations, orthopnea, or PND. His appetite is fair and weight relatively stable. No diarrhea, constipation, hematochezia or melena. No tingling, numbness or weakness of extremities. Continues to have tendency to bruise easily. PHYSICAL EXAMINATION: GENERAL: Showed an elderly male, well developed and nourished, weak appearing, awake and oriented, in no acute distress. VITAL SIGNS: Temperature was 36.8 degrees centigrade. Pulse rate of 74, respirations 14, blood pressure 148/72 with oxygen saturation of 93% on room air. HEENT: Normocephalic extraocular muscles intact. Conjunctivae slightly pale. Oral mucosa moist. NECK: Supple, with no JVD. NODES: No cervical, supraclavicular or axillary lymphadenopathy palpable. CHEST: Symmetrical. LUNGS: Fairly clear to auscultation without wheezes or rales. CARDIOVASCULAR: Regular, with few missed beats. ABDOMEN: Soft, nontender with no hepatosplenomegaly or other masses palpable. Few areas of ecchymosis noted the abdominal wall as s NEUROLOGIC: Showed no focal motor deficits. CBC done yesterday showed white count of 11.9, hemoglobin 7.8, platelet count 17,000 with neutrophil count 0.9, lymphocyte count 3.3, monocyte count 6.3 and eosinophil count 0.5. Manual differential showed 40% blasts in the peripheral smear. Chemistry panel showed normal electrolytes. BUN was 15 and creatinine 0.96. Corrected calcium was 9.5. Total bilirubin was 1.9 and albumin 3.0 with rest of the liver function studies within normal limits. Thank you for allowing me to participate in this patient's care. I will follow the patient with you and make appropriate recommendations. CC: Britt Stevens MD at Hematology Division at ? requested, unable to deliver. Job ID: [id number] DocumentID: [id number] Dictated Date: 03/03/2023 17:08:17 Appliquer Zigzag Date: 03/03/2023 18:01:00 Dictated By: STEPHANY GUY MD [facility]
[2023-03-03 20:15] VITALS: BP 138/76
[2023-03-03 22:30] VITALS: BP 138/76
[2023-03-04] MEDS: THERAPEUTIC MULTIVITAMIN W/MINERALS TABLET PO SCH (06:32)
[2023-03-04] MEDS: CATHETER FLUSH 10 ML SYR IVP SCH ×3 (06:37→21:33)
--- NOTE | 2023-03-04 06:54 | PM&R Progress Note ---
Subjective HPI/CC On Admission Date Seen by Provider: Mar 04, 2023 Time Seen by Provider: 12:00 Subjective/Events-last exam 03/04/2023: No major issues Platelets ordered by Dr Neri No pain Slow recovery 03/03/2023: Patient doing much better Slow recovery Dr. Anderson will be consulted and he will manage the transfusion requirement 03/02/2023: Patient still very weak Giving 1 unit of blood due to hemoglobin 7.8 Slow recovery Platelet count good Maintain on Levaquin we will check stop date soon Review of Systems General: Fatigue, Malaise Objective Exam Vital Signs Vital Signs Date Time Temp Pulse Resp B/P (MAP) Pulse Ox O2 Delivery O2 Flow Rate FiO2 03/04/23 13:51 36.8 78 18 137/64 93 Room Air 03/01/23 18:53 97 Capillary Refill : General Appearance: No Apparent Distress, WD/WN, Chronically ill HEENT: PERRL/EOMI, Normal ENT Inspection, Pharynx Normal Neck: Full Range of Motion, Normal Inspection, Non Tender, Supple, Carotid Bruit Respiratory: Chest Non Tender, Lungs Clear, Normal Breath Sounds, No Accessory Muscle Use, No Respiratory Distress Cardiovascular: Regular Rate, Rhythm, No Edema, No Gallop, No JVD, No Murmur, Normal Peripheral Pulses Gastrointestinal: Normal Bowel Sounds, No Organomegaly, No Pulsatile Mass, Non Tender, Soft Back: Normal Inspection, No CVA Tenderness, No Vertebral Tenderness Extremity: Normal Capillary Refill, Normal Inspection, Normal Range of Motion, Non Tender, No Calf Tenderness, No Pedal Edema Neurologic/Psychiatric: Alert, Oriented x3, assistant hall director II-XII Norm as Tested, Abnormal Gait, Depressed Affect, Motor Weakness (generalized) Skin: Normal Color, Warm/Dry Lymphatic: No Adenopathy Results/Procedures Lab Laboratory Tests 03/04/23 06:17 Patient resulted labs reviewed. FIM Transfers Therapy Code Descriptions/Definitions Functional [place] Measure: 0=Not Assessed/NA 4=Minimal Assistance 1=Total Assistance 5=Supervision or Setup 2=Maximal Assistance 6=Modified [place] 3=Moderate Assistance 7=Complete IndependenceSCALE: Activities may be completed with or without assistive devices. 8-Cxdpyqncdq-pqoxmmu completes the activity by him/herself with no assistance from a helper. 5-Set-up or Clean-up Assistance-helper sets up or cleans up; patient completes activity. [place] assists only prior to or following the activity. 4-Supervision or Touching Assistance-helper provides verbal cues and/or touching/steadying and/or contact guard assistance as patient completes activity. Assistance may be provided throughout the activity or intermittently. 3-Partial/Moderate Assistance-helper does LESS THAN HALF the effort. [place] lifts, holds or supports trunk or limbs, but provides less than half the effort. 2-Substantial/Maximal Assistance-helper does MORE THAN HALF the effort. [place] lifts or holds trunk or limbs and provides more than half the effort. 1-Doemmzrvd-tybeuh does ALL the effort. Patient does none of the effort to complete the activity. Or, the assistance of 2 or more helpers is required for the patient to complete the activity. If activity was not attempted, code reason: 7-Patient Refused. 9-Not Applicable-not attempted and the patient did not perform the activity before the current illness, exacerbation or injury. 10-Not Attempted due to Environmental Limitations-(lack of equipment, weather restraints, etc.). 88-Not Attempted due to Medical Conditions or Safety Concerns. Roll Left to Right (QC): 4 Sit to Lying (QC): 4 Sit to Stand (QC): 4 Chair/Tow-cv-Kibil Xfer(QC): 3 Car Transfer (QC): 88 Gait Training Does the Patient Walk?: Yes Distance: 5ft Walk 10 feet (QC): 4 Walk 50 ft with 2 Turns(QC): 88 Walk 150 ft (QC): 88 Walking 10ft/uneven surface-QC: 88 Gait Assistive Device: FWW Wheelchair Training Does the Pt Use a Wheelchair?: Yes Distance: 50ft Wheel 50 ft with 2 turns (QC): 4 Wheel 150 ft (QC): 4 Type of Wheelchair: Manual Stair Training 1 Step (curb) (QC): 3 (Min A ) 4 Steps (QC): 88 (Pt unable to walk more than 15ft with the FWW, or negotiate stairs, due to poor core and hip strength. ) 12 Steps (QC): 88 (Pt unable to walk more than 15ft with the FWW, or negotiate stairs, due to poor core and hip strength. ) Balance Picking up an Object (QC): 3 (Min A with jury consultant ) ADL-Treatment Eating (QC): 5 (set-up A to open packages) Oral Hygiene (QC): 6 ((I) with oral care seated at sink with pt cleaning dentures and combing hair; pt required no cues to complete task. Increased time needed secondary to fatigue.) Bathing Location: L Arm, R Arm, L Upper Leg, R Upper Leg, L Lower Leg (inclu ding foot), R Lower Leg (including foot), Chest, Abdomen, Buttocks, Perineal Area Shower/Bathe Self (QC): 3 (Partial/mod A for bathing seated on built in shower bench with pt utilizing hand held shower head, GB's, and long handled sponge. ) Upper Body Dressing (QC): 3 (Partial/mod A for UBD with pt requiring (A) to pull shirt down in the back while seated in WC. Increased amount of time needed to complete task secondary to fatigue.) Lower Body Dressing (QC): 3 (Partial/mod A for LBD with pt requiring (A) to thread RLE into pants leg. Therapist educated pt on utilizing jury consultant with pt declining. Therapist demonstrated how to use device with pt continuing to decline. Pt performed sit<>stand from WC with Min A x 1 to pull pants over hips.) On/Off Footwear (QC): 3 (Partial/mod A for donning/doffing footwear; pt utilizing dressing stick to doff socks seated in WC with SBA; pt too fatigued to don sock seated in WC which required therapist to jennie (B) socks with total A) Toileting Hygiene (QC): 3 (Min A for toileting; pt had a bowel movement/voided and was able to clean buttocks while seated on toilet with CGA for steadiness; pt required (A) to manage clothing.) Toilet Transfer (QC): 3 (SPT from WC<>BSC over toilet with Min A x 1 utilizing GB for safety) Assessment/Plan Assessment and Plan Assess & Plan/Chief Complaint Assessment: 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 Anderson 03/04/2023: Transfused platelets (1) Myopathy (2) Acute myelogenous leukemia Status: Acute (3) Atrial fibrillation Status: Chronic (4) CAD (coronary artery disease) (5) HTN (hypertension) Status: Chronic (6) BPH (benign prostatic hyperplasia) Status: Chronic JANEY NAQVI DO Mar 04, 2023 06:54
[2023-03-04 07:04] LABS: BASOPHILS % (AUTO) 0 % (0-10)
[2023-03-04 07:07] LABS: EOSINOPHILS # (AUTO) 0.4 10^3/uL (0.0-0.3); EOSINOPHILS % (AUTO) 3 % (0-10); HEMATOCRIT 25 % (40-54); HEMOGLOBIN 8.2 g/dL (13.3-17.7); LYMPHOCYTES # (AUTO) 2.8 10^3/uL (1.0-4.0); LYMPHOCYTES % (AUTO) 19 % (12-44); MEAN CORPUSCULAR HEMOGLOBIN 32 pg (25-34); MEAN CORPUSCULAR HGB CONC 33 g/dL (32-36); MEAN CORPUSCULAR VOLUME 97 fL (80-99); MEAN PLATELET VOLUME 11.6 fL (9.0-12.2); MONOCYTES % (AUTO) 55 % (0-12); NEUTROPHILS % (AUTO) 14 % (42-75); WHITE BLOOD COUNT 14.4 10^3/uL (4.3-11.0)
[2023-03-04 07:21] LABS: PLATELET COUNT 9 10^3/uL (130-400)
[2023-03-04 07:25] LABS: ALBUMIN 2.9 GM/DL (3.2-4.5); BILIRUBIN,TOTAL 1.6 MG/DL (0.1-1.0); CALCIUM 8.6 MG/DL (8.5-10.1); CREATININE SERUM 0.97 MG/DL (0.60-1.30); POTASSIUM 3.4 MMOL/L (3.6-5.0); TOTAL PROTEIN 5.2 GM/DL (6.4-8.2); URIC ACID 3.5 MG/DL (2.6-7.2)
[2023-03-04 08:00] VITALS: BP 128/61
[2023-03-04] MEDS ORDERED: ACETAMINOPHEN 500 MG TABLET PO NR (09:00)
[2023-03-04] MEDS: PANTOPRAZOLE 20 MG TABLET PO SCH (09:26)
[2023-03-04] MEDS: meTOprolol TARTRATE (IR) 25 MG TABLET PO SCH ×2 (09:26→21:29)
[2023-03-04] MEDS: OXYBUTYNIN 5 MG TABLET PO SCH ×3 (09:26→21:29)
[2023-03-04] MEDS: ACYCLOVIR 400 MG CAPSULE/TABLET PO SCH ×2 (09:27→21:29)
[2023-03-04] MEDS: SENNA W/DOCUSATE TABLET PO SCH ×2 (09:27→21:30)
[2023-03-04] MEDS: DOCUSATE SODIUM 100 MG CAPSULE PO SCH ×2 (09:27→21:29)
[2023-03-04] MEDS: MICONAZOLE 2% POWDER 90 GM TOP SCH ×2 (09:28→21:31)
[2023-03-04] MEDS: HYPOCHLOROUS ACID/NaCl WOUND SOLN 250 ML IR PRN (09:28)
[2023-03-04 10:59] VITALS: BP 135/63
[2023-03-04 11:04] VITALS: BP 135/63
[2023-03-04 11:15] VITALS: BP 144/65
[2023-03-04] MEDS: LevoFLOXacin 750 MG TABLET PO SCH (11:48)
[2023-03-04] MEDS: NS IV 500 ML 500 ML IV SCH (11:50)
[2023-03-04 13:51] VITALS: BP 137/64
[2023-03-04] MEDS: FINASTERIDE 5 MG TABLET PO SCH (18:03)
[2023-03-04] MEDS: TAMSULOSIN 0.4 MG (FLOMAX) CAP PO SCH (18:03)
[2023-03-04 20:34] VITALS: BP 137/82
[2023-03-05] MEDS: NS IV 500 ML 500 ML IV SCH ×2 (02:40→18:31)
[2023-03-05 05:45] LABS: MEAN CORPUSCULAR VOLUME 98 fL (80-99)
[2023-03-05 05:47] LABS: BASOPHILS % (AUTO) 0 % (0-10); EOSINOPHILS # (AUTO) 0.1 10^3/uL (0.0-0.3); EOSINOPHILS % (AUTO) 0 % (0-10); HEMATOCRIT 25 % (40-54); HEMOGLOBIN 8.2 g/dL (13.3-17.7); LYMPHOCYTES # (AUTO) 4.3 10^3/uL (1.0-4.0); LYMPHOCYTES % (AUTO) 25 % (12-44); MEAN CORPUSCULAR HEMOGLOBIN 33 pg (25-34); MEAN CORPUSCULAR HGB CONC 33 g/dL (32-36); MEAN PLATELET VOLUME 10.4 fL (9.0-12.2); MONOCYTES # (AUTO) 8.2 10^3/uL (0.0-1.0); MONOCYTES % (AUTO) 48 % (0-12); NEUTROPHILS # (AUTO) 2.8 10^3/uL (1.8-7.8); NEUTROPHILS % (AUTO) 17 % (42-75); WHITE BLOOD COUNT 16.9 10^3/uL (4.3-11.0)
[2023-03-05 05:57] LABS: PLATELET COUNT 16 10^3/uL (130-400)
--- NOTE | 2023-03-05 06:08 | PM&R Progress Note ---
Subjective HPI/CC On Admission Date Seen by Provider: Mar 05, 2023 Time Seen by Provider: 12:00 Subjective/Events-last exam 03/05/2023: Patient doing really well Slow recovery but moving better at bedside Platelet count 16,000 so much improved We will monitor closely 03/04/2023: No major issues Platelets ordered by Dr Neri No pain Slow recovery 03/03/2023: Patient doing much better Slow recovery Dr. Anderson will be consulted and he will manage the transfusion requirement 03/02/2023: Patient still very weak Giving 1 unit of blood due to hemoglobin 7.8 Slow recovery Platelet count good Maintain on Levaquin we will check stop date soon Review of Systems General: Fatigue, Malaise Neurological: Weakness Objective Exam Vital Signs Vital Signs Date Time Temp Pulse Resp B/P (MAP) Pulse Ox O2 Delivery O2 Flow Rate FiO2 03/05/23 08:50 36.8 83 18 137/70 (92) 96 Room Air 03/01/23 18:53 97 Capillary Refill : General Appearance: No Apparent Distress, WD/WN, Chronically ill HEENT: PERRL/EOMI, Normal ENT Inspection, Pharynx Normal Neck: Full Range of Motion, Normal Inspection, Non Tender, Supple, Carotid Brui t Respiratory: Chest Non Tender, Lungs Clear, Normal Breath Sounds, No Accessory Muscle Use, No Respiratory Distress Cardiovascular: Regular Rate, Rhythm, No Edema, No Gallop, No JVD, No Murmur, Normal Peripheral Pulses Gastrointestinal: Normal Bowel Sounds, No Organomegaly, No Pulsatile Mass, Non Tender, Soft Back: Normal Inspection, No CVA Tenderness, No Vertebral Tenderness Extremity: Normal Capillary Refill, Normal Inspection, Normal Range of Motion, Non Tender, No Calf Tenderness, No Pedal Edema Neurologic/Psychiatric: Alert, Oriented x3, pelts skinner II-XII Norm as Tested, Abnormal Gait, Depressed Affect, Motor Weakness (generalized) Skin: Normal Color, Warm/Dry Lymphatic: No Adenopathy Results/Procedures Lab Laboratory Tests 03/05/23 05:30 Patient resulted labs reviewed. FIM Transfers Therapy Code Descriptions/Definitions Functional [place] Measure: 0=Not Assessed/NA 4=Minimal Assistance 1=Total Assistance 5=Supervision or Setup 2=Maximal Assistance 6=Modified [place] 3=Moderate Assistance 7=Complete IndependenceSCALE: Activities may be completed with or without assistive devices. 8-Lanmcbdjlq-ykihaem completes the activity by him/herself with no assistance from a helper. 5-Set-up or Clean-up Assistance-helper sets up or cleans up; patient completes activity. [place] assists only prior to or following the activity. 4-Supervision or Touching Assistance-helper provides verbal cues and/or touching/steadying and/or contact guard assistance as patient completes activity. Assistance may be provided throughout the activity or intermittently. 3-Partial/Moderate Assistance-helper does LESS THAN HALF the effort. [place] lifts, holds or supports trunk or limbs, but provides less than half the effort. 2-Substantial/Maximal Assistance-helper does MORE THAN HALF the effort. [place] lifts or holds trunk or limbs and provides more than half the effort. 1-Hgpnzwpuh-aefzpi does ALL the effort. Patient does none of the effort to complete the activity. Or, the assistance of 2 or more helpers is required for the patient to complete the activity. If activity was not attempted, code reason: 7-Patient Refused. 9-Not Applicable-not attempted and the patient did not perform the activity before the current illness, exacerbation or injury. 10-Not Attempted due to Environmental Limitations-(lack of equipment, weather restraints, etc.). 88-Not Attempted due to Medical Conditions or Safety Concerns. Roll Left to Right (QC): 4 Sit to Lying (QC): 4 Sit to Stand (QC): 4 Chair/Tau-dv-Frncs Xfer(QC): 3 Car Transfer (QC): 88 Gait Training Does the Patient Walk?: Yes Distance: 5ft Walk 10 feet (QC): 4 Walk 50 ft with 2 Turns(QC): 88 Walk 150 ft (QC): 88 Walking 10ft/uneven surface-QC: 88 Gait Assistive Device: FWW Wheelchair Training Does the Pt Use a Wheelchair?: Yes Distance: 50ft Wheel 50 ft with 2 turns (QC): 4 Wheel 150 ft (QC): 4 Type of Wheelchair: Manual Stair Training 1 Step (curb) (QC): 3 (Min A ) 4 Steps (QC): 88 (Pt unable to walk more than 15ft with the FWW, or negotiate stairs, due to poor core and hip strength. ) 12 Steps (QC): 88 (Pt unable to walk more than 15ft with the FWW, or negotiate stairs, due to poor core and hip strength. ) Balance Picking up an Object (QC): 3 (Min A with digital director ) ADL-Treatment Eating (QC): 5 (set-up A to open packages) Oral Hygiene (QC): 6 ((I) with oral care seated at sink with pt cleaning dentu res and combing hair; pt required no cues to complete task. Increased time needed secondary to fatigue.) Bathing Location: L Arm, R Arm, L Upper Leg, R Upper Leg, L Lower Leg (in cluding foot), R Lower Leg (including foot), Chest, Abdomen, Buttocks, Perineal Area Shower/Bathe Self (QC): 3 (Partial/mod A for bathing seated on built in shower bench with pt utilizing hand held shower head, GB's, and long handled sponge. ) Upper Body Dressing (QC): 3 (Partial/mod A for UBD with pt requiring (A) to pull shirt down in the back while seated in WC. Increased amount of time needed to complete task secondary to fatigue.) Lower Body Dressing (QC): 3 (Partial/mod A for LBD with pt requiring (A) to thread RLE into pants leg. Therapist educated pt on utilizing digital director with pt declining. Therapist demonstrated how to use device with pt continuing to decline. Pt performed sit<>stand from WC with Min A x 1 to pull pants over hips.) On/Off Footwear (QC): 3 (Partial/mod A for donning/doffing footwear; pt utilizing dressing stick to doff socks seated in WC with SBA; pt too fatigued to don sock seated in WC which required therapist to jennie (B) socks with total A) Toileting Hygiene (QC): 3 (Min A for toileting; pt had a bowel movement/voided and was able to clean buttocks while seated on toilet with CGA for steadiness; pt required (A) to manage clothing.) Toilet Transfer (QC): 3 (SPT from WC<>BSC over toilet with Min A x 1 utilizing GB for safety) Assessment/Plan Assessment and Plan Assess & Plan/Chief Complaint Assessment: Critical illness myopathy with slow recovery AML 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 Anderson 03/04/2023: Transfused platelets 03/05/2023: Supportive care Slow recovery (1) Myopathy (2) Acute myelogenous leukemia Status: Acute (3) Atrial fibrillation Status: Chronic (4) CAD (coronary artery disease) (5) HTN (hypertension) Status: Chronic (6) BPH (benign prostatic hyperplasia) Status: Chronic JANEY NAQVI DO Mar 05, 2023 06:08
[2023-03-05] MEDS: CATHETER FLUSH 10 ML SYR IVP SCH ×3 (06:20→20:39)
[2023-03-05] MEDS: THERAPEUTIC MULTIVITAMIN W/MINERALS TABLET PO SCH (06:33)
[2023-03-05 06:47] LABS: BAND NEUTROPHILS 2 %; NEUTROPHILS % (MANUAL) 6 %
[2023-03-05 06:48] LABS: ATYPICAL LYMPHOCYTES 3 %; BLAST CELLS 34 %; EOSINOPHILS % (MANUAL) 2 %; LYMPHOCYTES % (MANUAL) 31 %; MONOCYTES % (MANUAL) 21 %; MYELOCYTES % 1 %
[2023-03-05 06:49] LABS: ANISOCYTOSIS MODERATE; PLATELET CLUMPS NO CLUMPS NOTED
[2023-03-05 08:50] VITALS: BP 137/70
[2023-03-05] MEDS: meTOprolol TARTRATE (IR) 25 MG TABLET PO SCH ×2 (09:16→20:39)
[2023-03-05] MEDS: OXYBUTYNIN 5 MG TABLET PO SCH ×3 (09:17→20:38)
[2023-03-05] MEDS: SENNA W/DOCUSATE TABLET PO SCH ×2 (09:17→20:38)
[2023-03-05] MEDS: DOCUSATE SODIUM 100 MG CAPSULE PO SCH ×2 (09:17→20:38)
[2023-03-05] MEDS: ACYCLOVIR 400 MG CAPSULE/TABLET PO SCH ×2 (09:17→20:38)
[2023-03-05] MEDS: PANTOPRAZOLE 20 MG TABLET PO SCH (09:17)
[2023-03-05] MEDS: MICONAZOLE 2% POWDER 90 GM TOP SCH ×2 (09:18→20:43)
[2023-03-05] MEDS: LevoFLOXacin 750 MG TABLET PO SCH (11:11)
[2023-03-05] MEDS: TAMSULOSIN 0.4 MG (FLOMAX) CAP PO SCH (18:26)
[2023-03-05] MEDS: FINASTERIDE 5 MG TABLET PO SCH (18:26)
[2023-03-05 19:52] VITALS: BP 140/70
[2023-03-06 06:09] LABS: BASOPHILS % (AUTO) 0 % (0-10); MEAN CORPUSCULAR VOLUME 98 fL (80-99)
[2023-03-06 06:11] LABS: EOSINOPHILS # (AUTO) 0.9 10^3/uL (0.0-0.3); EOSINOPHILS % (AUTO) 4 % (0-10); HEMATOCRIT 24 % (40-54); HEMOGLOBIN 8.1 g/dL (13.3-17.7); LYMPHOCYTES # (AUTO) 3.7 10^3/uL (1.0-4.0); LYMPHOCYTES % (AUTO) 17 % (12-44); MEAN CORPUSCULAR HEMOGLOBIN 33 pg (25-34); MEAN CORPUSCULAR HGB CONC 34 g/dL (32-36); MEAN PLATELET VOLUME 9.8 fL (9.0-12.2); MONOCYTES # (AUTO) 11.4 10^3/uL (0.0-1.0); MONOCYTES % (AUTO) 53 % (0-12); NEUTROPHILS # (AUTO) 4.5 10^3/uL (1.8-7.8); NEUTROPHILS % (AUTO) 21 % (42-75); WHITE BLOOD COUNT 21.4 10^3/uL (4.3-11.0)
[2023-03-06 06:20] LABS: PLATELET COUNT 11 10^3/uL (130-400)
[2023-03-06] MEDS: THERAPEUTIC MULTIVITAMIN W/MINERALS TABLET PO SCH (06:28)
[2023-03-06] MEDS: CATHETER FLUSH 10 ML SYR IVP SCH ×3 (06:28→20:27)
[2023-03-06 06:32] LABS: CALCIUM 8.6 MG/DL (8.5-10.1); CREATININE SERUM 0.98 MG/DL (0.60-1.30); POTASSIUM 3.5 MMOL/L (3.6-5.0)
[2023-03-06 08:00] VITALS: BP 139/64
[2023-03-06] MEDS: ACYCLOVIR 400 MG CAPSULE/TABLET PO SCH ×2 (08:15→20:26)
[2023-03-06] MEDS: PANTOPRAZOLE 20 MG TABLET PO SCH (08:15)
[2023-03-06] MEDS: SENNA W/DOCUSATE TABLET PO SCH ×2 (08:15→20:30)
[2023-03-06] MEDS: meTOprolol TARTRATE (IR) 25 MG TABLET PO SCH ×2 (08:16→20:26)
[2023-03-06] MEDS: DOCUSATE SODIUM 100 MG CAPSULE PO SCH ×2 (08:17→20:30)
[2023-03-06] MEDS: OXYBUTYNIN 5 MG TABLET PO SCH ×3 (08:17→20:26)
[2023-03-06] MEDS: MICONAZOLE 2% POWDER 90 GM TOP SCH ×2 (08:22→20:28)
--- NOTE | 2023-03-06 08:48 | PM&R Progress Note ---
Subjective HPI/CC On Admission Date Seen by Provider: Mar 06, 2023 Time Seen by Provider: 10:00 Subjective/Events-last exam 03/06/2023: Much improved Slow recovery Labs reviewed No falls BM+ 03/05/2023: Patient doing really well Slow recovery but moving better at bedside Platelet count 16,000 so much improved We will monitor closely 03/04/2023: No major issues Platelets ordered by Dr Neri No pain Slow recovery 03/03/2023: Patient doing much better Slow recovery Dr. Anderson will be consulted and he will manage the transfusion requirement 03/02/2023: Patient still very weak Giving 1 unit of blood due to hemoglobin 7.8 Slow recovery Platelet count good Maintain on Levaquin we will check stop date soon Objective Exam Vital Signs Vital Signs Date Time Temp Pulse Resp B/P (MAP) Pulse Ox O2 Delivery O2 Flow Rate FiO2 03/06/23 09:30 Room Air 03/06/23 08:00 37.1 83 20 139/64 (89) 90 03/01/23 18:53 97 Capillary Refill : General Appearance: No Apparent Distress, WD/WN, Chronically ill HEENT: PERRL/EOMI, Normal ENT Inspection, Pharynx Normal Neck: Full Range of Motion, Normal Inspection, Non Tender, Supple, Carotid Bruit Respiratory: Chest Non Tender, Lungs Clear, Normal Breath Sounds, No Accessory Muscle Use, No Respiratory Distress Cardiovascular: Regular Rate, Rhythm, No Edema, No Gallop, No JVD, No Murmur, Normal Peripheral Pulses Gastrointestinal: Normal Bowel Sounds, No Organomegaly, No Pulsatile Mass, Non Tender, Soft Back: Normal Inspection, No CVA Tenderness, No Vertebral Tenderness Extremity: Normal Capillary Refill, Normal Inspection, Normal Range of Motion, Non Tender, No Calf Tenderness, No Pedal Edema Neurologic/Psychiatric: Alert, Oriented x3, drawing kiln supervisor II-XII Norm as Tested, Abnormal Gait, Depressed Affect, Motor Weakness (generalized) Skin: Normal Color, Warm/Dry Lymphatic: No Adenopathy Results/Procedures Lab Laboratory Tests 03/06/23 05:45 Patient resulted labs reviewed. FIM Transfers Therapy Code Descriptions/Definitions Functional [place] Measure: 0=Not Assessed/NA 4=Minimal Assistance 1=Total Assistance 5=Supervision or Setup 2=Maximal Assistance 6=Modified [place] 3=Moderate Assistance 7=Complete IndependenceSCALE: Activities may be completed with or without assistive devices. 5-Kucsswmogc-ygdaaue completes the activity by him/herself with no assistance f rom a helper. 5-Set-up or Clean-up Assistance-helper sets up or cleans up; patient completes activity. [place] assists only prior to or following the activity. 4-Supervision or Touching Assistance-helper provides verbal cues and/or touching/steadying and/or contact guard assistance as patient completes activity. Assistance may be provided throughout the activity or intermittently. 3-Partial/Moderate Assistance-helper does LESS THAN HALF the effort. [place] lifts, holds or supports trunk or limbs, but provides less than half the effort. 2-Substantial/Maximal Assistance-helper does MORE THAN HALF the effort. [place] lifts or holds trunk or limbs and provides more than half the effort. 2-Prtnvlxwh-ydiyir does ALL the effort. Patient does none of the effort to complete the activity. Or, the assistance of 2 or more helpers is required for the patient to complete the activity. If activity was not attempted, code reason: 7-Patient Refused. 9-Not Applicable-not attempted and the patient did not perform the activity before the current illness, exacerbation or injury. 10-Not Attempted due to Environmental Limitations-(lack of equipment, weather restraints, etc.). 88-Not Attempted due to Medical Conditions or Safety Concerns. Roll Left to Right (QC): 4 Sit to Lying (QC): 4 Sit to Stand (QC): 4 Chair/Eay-gw-Gcgtt Xfer(QC): 3 Car Transfer (QC): 88 Gait Training Does the Patient Walk?: Yes Distance: 5ft Walk 10 feet (QC): 4 Walk 50 ft with 2 Turns(QC): 88 Walk 150 ft (QC): 88 Walking 10ft/uneven surface-QC: 88 Gait Assistive Device: FWW Wheelchair Training Does the Pt Use a Wheelchair?: Yes Distance: 50ft Wheel 50 ft with 2 turns (QC): 4 Wheel 150 ft (QC): 4 Type of Wheelchair: Manual Stair Training 1 Step (curb) (QC): 3 (Min A ) 4 Steps (QC): 88 (Pt unable to walk more than 15ft with the FWW, or negotiate stairs, due to poor core and hip strength. ) 12 Steps (QC): 88 (Pt unable to walk more than 15ft with the FWW, or negotiate stairs, due to poor core and hip strength. ) Balance Picking up an Object (QC): 3 (Min A with softball winder ) ADL-Treatment Eating (QC): 5 (set-up A to open packages) Oral Hygiene (QC): 6 ((I) with oral care seated at sink with pt cleaning dentures and combing hair; pt required no cues to complete task. Increased time needed secondary to fatigue.) Bathing Location: L Arm, R Arm, L Upper Leg, R Upper Leg, L Lower Leg (including foot), R Lower Leg (including foot), Chest, Abdomen, Buttocks, Perineal Area Shower/Bathe Self (QC): 3 (Partial/mod A for bathing seated on built in shower bench with pt utilizing hand held shower head, GB's, and long handled sponge. ) Upper Body Dressing (QC): 3 (Partial/mod A for UBD with pt requiring (A) to pull shirt down in the back while seated in WC. Increased amount of time needed to complete task secondary to fatigue.) Lower Body Dressing (QC): 3 (Partial/mod A for LBD with pt requiring (A) to thread RLE into pants leg. Therapist educated pt on utilizing softball winder with pt declining. Therapist demonstrated how to use device with pt continuing to decline. Pt performed sit<>stand from WC with Min A x 1 to pull pants over hips.) On/Off Footwear (QC): 3 (Partial/mod A for donning/doffing footwear; pt utilizing dressing stick to doff socks seated in WC with SBA; pt too fatigued to don sock seated in WC which required therapist to jennie (B) socks with total A) Toileting Hygiene (QC): 3 (Min A for toileting; pt had a bowel movement/voided and was able to clean buttocks while seated on toilet with CGA for steadiness; pt required (A) to manage clothing.) Toilet Transfer (QC): 3 (SPT from WC<>BSC over toilet with Min A x 1 utilizing GB for safety) Assessment/Plan Assessment and Plan Assess & Plan/Chief Complaint Assessment: Critical illness myopathy with slow recovery AML Anemia transfusion dependent s/p 1 unit on 9/7/23 Thrombocytopenia s/p 1 button 03/04/23 AF CAD BPH HLP HTN Plan: Monitor closely Fall risk Pain meds Transfuse prn Hold ASA and OAC 03/02/2023: Supportive care Transfusions as necessary Home meds Hold anticoagulation and aspirin 03/03/2023: Supportive care Consult Dr. Anderson 03/04/2023: Transfused platelets 03/05/2023: Supportive care Slow recovery 03/06/2023: Monitor hgb and platelets (1) Myopathy (2) Acute myelogenous leukemia Status: Acute (3) Atrial fibrillation Status: Chronic (4) CAD (coronary artery disease) (5) HTN (hypertension) Status: Chronic (6) BPH (benign prostatic hyperplasia) Status: Chronic JANEY NAQVI DO Mar 06, 2023 08:48
--- NOTE | 2023-03-06 10:36 | Occupational Ther Daily Note ---
OT Current Status-Daily Note Subjective Pt semi-reclined in bed upon entering room. Pt consented to OT session this A.M. Co-treat with PT from 09:15 - 1030 secondary to decreased endurance, activity tolerance, and the need of a second person for safety to increase (I) with functional tasks and to decrease burden of care. PT focusing on functional m obility and gait while OT focusing on ADLs, assisting with standing and strengthening B UE's. Pain Numeric Pain Scale: 0-No Pain Location: No Pain Reported Mental Status/Objective Patient Orientation: Person, Place, Time, Situation, Normal For Age Attachments: IV ADL-Treatment Therapy Code Descriptions/Definitions Functional Grant Measure: 0=Not Assessed/NA 4=Minimal Assistance 1=Total Assistance 5=Supervision or Setup 2=Maximal Assistance 6=Modified Grant 3=Moderate Assistance 7=Complete IndependenceSCALE: Activities may be completed with or without assistive devices. 7-Bueoxvjovy-sggeeli completes the activity by him/herself with no assistance from a helper. 5-Set-up or Clean-up Assistance-helper sets up or cleans up; patient completes activity. [place] assists only prior to or following the activity. 4-Supervision or Touching Assistance-helper provides verbal cues and/or touch ing/steadying and/or contact guard assistance as patient completes activity. Assistance may be provided throughout the activity or intermittently. 3-Partial/Moderate Assistance-helper does LESS THAN HALF the effort. [place] lifts, holds or supports trunk or limbs, but provides less than half the effort. 2-Substantial/Maximal Assistance-helper does MORE THAN HALF the effort. [place] lifts or holds trunk or limbs and provides more than half the effort. 7-Kheqjdpne-amywop does ALL the effort. Patient does none of the effort to complete the activity. Or, the assistance of 2 or more helpers is required for the patient to complete the activity. If activity was not attempted, code reason: 7-Patient Refused. 9-Not Applicable-not attempted and the patient did not perform the activity before the current illness, exacerbation or injury. 10-Not Attempted due to Environmental Limitations-(lack of equipment, weather restraints, etc.). 88-Not Attempted due to Medical Conditions or Safety Concerns. Upper Body Dressing (QC): 3 (Partial/mod A for UBD while seated at EOB; pt required min A for static sitting balance secondary to decreased core strength and endurance as pt noted with posterior/R lateral lean; pt required (A) to pull shirt down in the back and over abdomen.) Lower Body Dressing (QC): 3 (Partial/mod A for LBD with pt requiring (A) to th read BLE's into pants leg. Therapist educated pt on utilizing recreation officer with pt declining. Therapist demonstrated how to use device with pt continuing to decline. Pt performed sit<>stand from WC with CGA x 1 to pull pants over hips.) Toileting Hygiene (QC): 3 (Partial/mod A to manage clothing with pt able to don/doff pants and undwear while standing utilizing GB's; pt reported he thought he needed to have a BM, but it was just gas. No need to perform filipe care as pt did not have a BM/void at this time.) Toilet Transfer (QC): 3 (SPT from WC<>BSC over toilet with partial/mod A utilizing GB's for balance.) Other Treatment Supine>sit at EOB performed with SBA with pt utilizing bedrails Seated at EOB, pt performed dressing task with UBD/LBD (see scores above). Pt noted with R lateral/posterior lean while seated at EOB. Pt demo poor + static sitting balance. See PT's note for functional mobility performed Pt performed standing activity in parallel bars x 5 trails to improve BLE strength, endurance, standing tolerance, BUE strength, and static standing balance to increase (I) with ADLs/IADLs. First 2 trials, pt performed sit<>stand with CGA x 1. Pt educated on using BUE's to help push up from WC to increase functional transfers/self-care transfers. Pt stood ~1 minute each trial. Seated rest break needed secondary to fatigue. Pt performed sit<>stand for 3 other trials while batting a balloon, alternating RUE/LUE. Sit<>stand from WC performed with CGA x 1 where pt stood for ~1 minute each trial batting the balloon back and forth. Pt would start off as CGA x 1 and would decrease to Min A x 1 secondary to fatigue. Pt noted with decreased activity tolerance and endurance with posterior lean noted and pt required a seated rest break. On the last standing trial with batting balloon, 1# wrist weights donned to BUE's to increase BUE strength/activity tolerance. Overall, pt reported no pain while performing activity. No signs of distress noted. Increased time was needed to complete activity secondary to fatigue and decreased activity tolerance. 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 2=Patient will verbalize/demonstrate understanding of assistive devices/modifications for ADL. 3=Patient will improve strength/tolerance for activity to enable patient to perform ADL's. OT Education/Plan Problem List/Assessment Assessment: Decreased Activ Tolerance, Decreased UE Strength, Impaired Funct Balance, Impaired I ADL's, Impaired Self-Care Skills Discharge Recommendations Plan/Recommendations: Continue POC Treatment Plan/Plan of Care Treatment,Training & Education: Yes Patient would benefit from OT for education, treatment and training to promote independence in ADL's, mobility, safety and/or upper extremity function for ADL's. Plan of Care: ADL Retraining, Caregiver Training, Functional Mobility, Group Exercise/Act as Ind, UE Funct Exercise/Act Treatment Duration: Mar 22, 2023 Frequency: At least 5 of 7 days/Wk (IRF) Estimated Hrs Per Day: 1.5 hours per day Agreement: Yes Rehab Potential: Good Ending session, pt remained seated in WC in therapy gym with hand off to TYE Howard. Time Start Time: 09:00 Stop Time: 10:30 DATE: Mar 06, 2023 Total Time Billed (hr/min): 90 Billed Treatment Time 90 minutes 75 minutes (co-treat with PT from 09:15 - 10:30) ADL 3 FA 3 WHIT DE LEON OT Mar 06, 2023 10:36
[2023-03-06] MEDS: LevoFLOXacin 750 MG TABLET PO SCH (10:48)
[2023-03-06] MEDS: NS IV 500 ML 500 ML IV SCH (12:08)
[2023-03-06] MEDS: FINASTERIDE 5 MG TABLET PO SCH (17:54)
[2023-03-06] MEDS: TAMSULOSIN 0.4 MG (FLOMAX) CAP PO SCH (17:54)
[2023-03-06 20:13] VITALS: BP 145/65
[2023-03-06] MEDS: HYPOCHLOROUS ACID/NaCl WOUND SOLN 250 ML IR PRN (20:28)
[2023-03-07] MEDS: NS IV 500 ML 500 ML IV SCH ×2 (04:02→20:36)
[2023-03-07] MEDS: CATHETER FLUSH 10 ML SYR IVP SCH ×3 (05:18→20:36)
--- NOTE | 2023-03-07 06:14 | PM&R Progress Note ---
Subjective HPI/CC On Admission Date Seen by Provider: Mar 07, 2023 Time Seen by Provider: 10:00 Subjective/Events-last exam 03/07/2023: No major issues No pain reported BM+ Labs reviewed 03/06/2023: Much improved Slow recovery Labs reviewed No falls BM+ 03/05/2023: Patient doing really well Slow recovery but moving better at bedside Platelet count 16,000 so much improved We will monitor closely 03/04/2023: No major issues Platelets ordered by Dr Neri No pain Slow recovery 03/03/2023: Patient doing much better Slow recovery Dr. Anderson will be consulted and he will manage the transfusion requirement 03/02/2023: Patient still very weak Giving 1 unit of blood due to hemoglobin 7.8 Slow recovery Platelet count good Maintain on Levaquin we will check stop date soon Review of Systems General: Fatigue, Malaise Objective Exam Vital Signs Vital Signs Date Time Temp Pulse Resp B/P (MAP) Pulse Ox O2 Delivery O2 Flow Rate FiO2 03/07/23 10:00 86 20 130/71 (90) 95 Room Air 03/07/23 08:00 36.7 03/01/23 18:53 97 Capillary Refill : General Appearance: No Apparent Distress, WD/WN, Chronically ill HEENT: PERRL/EOMI, Normal ENT Inspection, Pharynx Normal Neck: Full Range of Motion, Normal Inspection, Non Tender, Supple, Carotid Bruit Respiratory: Chest Non Tender, Lungs Clear, Normal Breath Sounds, No Accessory Muscle Use, No Respiratory Distress Cardiovascular: Regular Rate, Rhythm, No Edema, No Gallop, No JVD, No Murmur, Normal Peripheral Pulses Gastrointestinal: Normal Bowel Sounds, No Organomegaly, No Pulsatile Mass, Non Tender, Soft Back: Normal Inspection, No CVA Tenderness, No Vertebral Tenderness Extremity: Normal Capillary Refill, Normal Inspection, Normal Range of Motion, Non Tender, No Calf Tenderness, No Pedal Edema Neurologic/Psychiatric: Alert, Oriented x3, day camp counselor II-XII Norm as Tested, Abnormal Gait, Depressed Affect, Motor Weakness (generalized) Skin: Normal Color, Warm/Dry Lymphatic: No Adenopathy Results/Procedures Lab Patient resulted labs reviewed. FIM Transfers Therapy Code Descriptions/Definitions Functional [place] Measure: 0=Not Assessed/NA 4=Minimal Assistance 1=Total Assistance 5=Supervision or Setup 2=Maximal Assistance 6=Modified [place] 3=Moderate Assistance 7=Complete IndependenceSCALE: Activities may be completed with or without assistive devices. 2-Ozdsiqdoua-pwrzgal completes the activity by him/herself with no assistance from a helper. 5-Set-up or Clean-up Assistance-helper sets up or cleans up; patient completes activity. [place] assists only prior to or following the activity. 4-Supervision or Touching Assistance-helper provides verbal cues and/or touching/steadying and/or contact guard assistance as patient completes activity. Assistance may be provided throughout the activity or intermittently. 3-Partial/Moderate Assistance-helper does LESS THAN HALF the effort. [place] lifts, holds or supports trunk or limbs, but provides less than half the effort. 2-Substantial/Maximal Assistance-helper does MORE THAN HALF the effort. [place] lifts or holds trunk or limbs and provides more than half the effort. 4-Vihblfong-jqbniw does ALL the effort. Patient does none of the effort to complete the activity. Or, the assistance of 2 or more helpers is required for the patient to complete the activity. If activity was not attempted, code reason: 7-Patient Refused. 9-Not Applicable-not attempted and the patient did not perform the activity before the current illness, exacerbation or injury. 10-Not Attempted due to Environmental Limitations-(lack of equipment, weather restraints, etc.). 88-Not Attempted due to Medical Conditions or Safety Concerns. Roll Left to Right (QC): 4 Sit to Lying (QC): 4 Sit to Stand (QC): 4 Chair/Vjs-yo-Vnaxm Xfer(QC): 3 Car Transfer (QC): 88 Gait Training Does the Patient Walk?: Yes Distance: 5ft Walk 10 feet (QC): 4 Walk 50 ft with 2 Turns(QC): 88 Walk 150 ft (QC): 88 Walking 10ft/uneven surface-QC: 88 Gait Assistive Device: FWW Wheelchair Training Does the Pt Use a Wheelchair?: Yes Distance: 50ft Wheel 50 ft with 2 turns (QC): 4 Wheel 150 ft (QC): 4 Type of Wheelchair: Manual Stair Training 1 Step (curb) (QC): 3 (Min A ) 4 Steps (QC): 88 (Pt unable to walk more than 15ft with the FWW, or negotiate stairs, due to poor core and hip strength. ) 12 Steps (QC): 88 (Pt unable to walk more than 15ft with the FWW, or negotiate stairs, due to poor core and hip strength. ) Balance Picking up an Object (QC): 3 (Min A with panel lay up worker ) ADL-Treatment Eating (QC): 5 (set-up A to open packages) Oral Hygiene (QC): 6 ((I) with oral care seated at sink with pt cleaning dentures and combing hair; pt required no cues to complete task. Increased time needed secondary to fatigue.) Bathing Location: L Arm, R Arm, L Upper Leg, R Upper Leg, L Lower Leg (including foot), R Lower Leg (including foot), Chest, Abdomen, Buttocks, Perineal Area Shower/Bathe Self (QC): 3 (Partial/mod A for bathing seated on built in shower bench with pt utilizing hand held shower head, GB's, and long handled sponge. ) Upper Body Dressing (QC): 3 (Partial/mod A for UBD while seated at EOB; pt required min A for static sitting balance secondary to decreased core strength and endurance as pt noted with posterior/R lateral lean; pt required (A) to pull shirt down in the back and over abdomen.) Lower Body Dressing (QC): 3 (Partial/mod A for LBD with pt requiring (A) to thread BLE's into pants leg. Therapist educated pt on utilizing panel lay up worker with pt declining. Therapist demonstrated how to use device with pt continuing to decline. Pt performed sit<>stand from with CGA x 1 to pull pants over hips.) On/Off Footwear (QC): 3 (Partial/mod A for donning/doffing footwear; pt utilizing dressing stick to doff socks seated in WC with SBA; pt too fatigued to don sock seated in WC which required therapist to jennie (B) socks with total A) Toileting Hygiene (QC): 3 (Partial/mod A to manage clothing with pt able to don/doff pants and undwear while standing utilizing GB's; pt reported he thought he needed to have a BM, but it was just gas. 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 Anderson 03/04/2023: Transfused platelets 03/05/2023: Supportive care Slow recovery 03/06/2023: Monitor hgb and platelets 03/07/2023: Monitor closely Fall risk (1) Myopathy (2) Acute myelogenous leukemia Status: Acute (3) Atrial fibrillation Status: Chronic (4) CAD (coronary artery disease) (5) HTN (hypertension) Status: Chronic (6) BPH (benign prostatic hyperplasia) Status: Chronic JANEY NAQVI DO Mar 07, 2023 06:14
[2023-03-07] MEDS: THERAPEUTIC MULTIVITAMIN W/MINERALS TABLET PO SCH (06:30)
[2023-03-07 08:00] VITALS: BP 137/65
[2023-03-07] MEDS: ACYCLOVIR 400 MG CAPSULE/TABLET PO SCH ×2 (08:27→20:33)
[2023-03-07] MEDS: meTOprolol TARTRATE (IR) 25 MG TABLET PO SCH ×2 (08:30→20:33)
[2023-03-07] MEDS: OXYBUTYNIN 5 MG TABLET PO SCH ×3 (08:30→20:33)
[2023-03-07] MEDS: PANTOPRAZOLE 20 MG TABLET PO SCH (08:30)
[2023-03-07] MEDS: MICONAZOLE 2% POWDER 90 GM TOP SCH ×2 (08:31→20:34)
[2023-03-07] MEDS: DOCUSATE SODIUM 100 MG CAPSULE PO SCH ×2 (08:49→20:33)
[2023-03-07] MEDS: SENNA W/DOCUSATE TABLET PO SCH ×2 (08:49→20:33)
[2023-03-07] MEDS ORDERED: SALIVA STIMULANT PO PRN (09:00)
[2023-03-07 10:00] VITALS: BP 130/71
[2023-03-07] MEDS: LevoFLOXacin 750 MG TABLET PO SCH (12:02)
--- NOTE | 2023-03-07 12:10 | Physical Therapy Daily Note ---
PT Daily Note-Current Subjective Pt sitting in w/c in BR working w/OT upon arrival. Pt agrees to PT/OT co-treat. Co-treat with OT from 09:15 - 1030 secondary to decreased endurance, activity tolerance, and the need of a second person for safety to increase (I) with functional tasks and to decrease burden of care. PT focusing on functional mobility and gait while OT focusing on ADLs, assisting with standing and strengthening B UE's. Pain Location: No Pain Reported Section J - Health Conditions 1. Rarely or not at all 2. Occasionally 3. Frequently 4. Almost constantly 8. Unable to answer Pain Effect on Sleep: 1 Pain Interference with Therapy: 1 Pain Interference w/Day-to-Day: 1 Mental Status Patient Orientation: Person, Place, Situation Transfers SCALE: Activities may be completed with or without assistive devices. 9-Xroksjlxuq-exqfzkq completes the activity by him/herself with no assistance from a helper. 5-Set-up or Clean-up Assistance-helper sets up or cleans up; patient completes activity. [place] assists only prior to or following the activity. 4-Supervision or Touching Assistance-helper provides verbal cues and/or touching/steadying and/or contact guard assistance as patient completes activity. Assistance may be provided throughout the activity or intermittently. 3-Partial/Moderate Assistance-helper does LESS THAN HALF the effort. [place] lifts, holds or supports trunk or limbs, but provides less than half the effort. 2-Substantial/Maximal Assistance-helper does MORE THAN HALF the effort. [place] lifts or holds trunk or limbs and provides more than half the effort. 9-Fpdhxtuqh-fnzqwp does ALL the effort. Patient does none of the effort to complete the activity. Or, the assistance of 2 or more helpers is required for the patient to complete the activity. If activity was not attempted, code reason: 7-Patient Refused. 9-Not Applicable-not attempted and the patient did not perform the activity before the current illness, exacerbation or injury. 10-Not Attempted due to Environmental Limitations-(lack of equipment, weather restraints, etc.). 88-Not Attempted due to Medical Conditions or Safety Concerns. Sit to Stand (QC): 4 Toilet Transfer (QC): 4 Weight Bearing Right Lower Extremity: Right Full Weight Bearing Left Lower Extremity: Left Full Weight Bearing Wheelchair Training Does the Pt Use a Wheelchair?: Yes Wheel 50 ft with 2 turns (QC): 4 Wheel 150 ft (QC): 4 Type of Wheelchair: Manual Exercises Seated Therapy Exercises: Sit to stand Seated Reps: 5 Standing: Hamstring curls, Marching Standing Reps: 10 Treatments Pt completing ADLs w/OT in BR upon arrival (see OT note). Pt propels w/c in hallway to Therapy Gym. Pt performed sit<>stand activity x 3 trials in parallel bars to increase BLE strength, BUE strength, standing tolerance, activity tolerance, endurance, and functional mobility to increase (I) with ADLs and IADLs. Sit<>stand from w/c performed with CGA x 1. Pt stood ~1 minute each trial with CGA x 1. Pt required verbal/tactile cues for posture a pt noted with posterior lean and flexed posture. First trial, pt performed marching in place. Second trial, pt performed hamstring curls. And third trial, pt stood in place with mirror placed for visual feedback for correct posture. Seated rest break needed secondary to fatigue. Pt reported no pain while performing task. No LOB noted. OT departs at this time. After extended RB, pt again propels w/c in hallway due to fatigue. SPT to recliner & repositioned to comfort. All needs met, call light in hand. Assessment Current Status: Fair Progress Pt fatigues easily and requires extended RB to recover. Pt has gained strength for improved TF. PT Snf Goals Snf Goals PT Compensation And Benefits Manager Goals Time Frame: Mar 15, 2023 Roll Left & Right (QC): 6 (Pt will be Mod I with all aspects of functional mobility to be able to safely return home with spouse. ) Sit to Lying (QC): 6 (Pt will be Mod I with all aspects of functional mobility to be able to safely return home with spouse. ) Lying-Sitting on Side/Bed(QC): 6 (Pt will be Mod I with all aspects of functional mobility to be able to safely return home with spouse. ) Sit to Stand (QC): 6 (Pt will be Mod I with all aspects of functional mobility to be able to safely return home with spouse. ) Chair/Emh-lz-Opqym Xfer(QC): 6 (Pt will be Mod I with all aspects of functional mobility to be able to safely return home with spouse. ) Toilet Transfer (QC): 6 (Pt will be Mod I with all aspects of functional mobility to be able to safely return home with spouse. ) Car Transfer (QC): 6 (Pt will be Mod I with all aspects of functional mobility to be able to safely return home with spouse. ) Does the Patient Walk: Yes Walk 10 feet (QC): 6 (Pt will be Mod I with all aspects of functional mobility to be able to safely return home with spouse. ) Walk 50ft with 2 Turns (QC): 6 (Pt will be Mod I with all aspects of functional mobility to be able to safely return home with spouse. ) Walk 150 ft (QC): 6 (Pt will be Mod I with all aspects of functional mobility to be able to safely return home with spouse. ) Walking 10ft on Uneven Surface: 6 (Pt will be Mod I with all aspects of functional mobility to be able to safely return home with spouse. ) 1 Step (curb) (QC): 6 (Pt will be Mod I with all aspects of functional mobility to be able to safely return home with spouse. ) 4 Steps (QC): 6 (Pt will be Mod I with all aspects of functional mobility to be able to safely return home with spouse. ) 12 Steps (QC): 6 (Pt will be Mod I with all aspects of functional mobility to be able to safely return home with spouse. ) Picking up an Object (QC): 6 (Pt will be Mod I with all aspects of functional mobility to be able to safely return home with spouse. With metrologist ) Does the Pt use WC or Scooter?: Yes Wheel 50 feet with 2 turns (QC: 6 (Pt will be Mod I with all aspects of functional mobility to be able to safely return home with spouse. ) Type: Manual Wheel 150 feet: 6 (Pt will be Mod I with all aspects of functional mobility to be able to safely return home with spouse. ) Type: Manual PT Plan Problem List Problem List: Activity Tolerance Treatment/Plan Treatment Plan: Continue Plan of Care Treatment Plan: Bed Mobility, Education, Functional Activity Dianne, Functional Strength, Group Therapy, Gait, Safety, Therapeutic Exercise, Transfers Treatment Duration: Mar 15, 2023 Frequency: At least 5 of 7 days/Wk (IRF) Estimated Hrs Per Day: 1.5 hours per day Patient and/or Family Agrees t: Yes Safety Risks/Education Patient Education: Transfer Techniques, Correct Positioning, Safety Issues Teaching Recipient: Patient Teaching Methods: Discussion Response to Teaching: Verbalize Understanding Time Time In: 15 Time Out: 1045 DATE: Mar 07, 2023 Total Billed Treatment Time: 90 Total Billed Treatment Co-treat w/OT for 75m ([id number]) 1, FA x4 (55m), [facility] (20m) & EX (15m) JESSI STEVE PRESIDENT SALES AND MARKETING Mar 07, 2023 12:10
--- NOTE | 2023-03-07 13:37 | Occupational Ther Daily Note ---
OT Current Status-Daily Note Subjective Pt semi-reclined in bed upon entering room. Pt reported no pain at this time, but stated that he is very tired. Co-treat with PT from 09:15 - 1030 secondary to decreased endurance, activity tolerance, and the need of a second person for safety to increase (I) with functional tasks and to decrease burden of care. PT focusing on functional mobility and gait while OT focusing on ADLs, assisting with standing and strengthening B UE's. Pain Numeric Pain Scale: 0-No Pain Location: No Pain Reported Mental Status/Objective Patient Orientation: Person, Place, Time, Situation Attachments: IV ADL-Treatment Therapy Code Descriptions/Definitions Functional [place] Measure: 0=Not Assessed/NA 4=Minimal Assistance 1=Total Assistance 5=Supervision or Setup 2=Maximal Assistance 6=Modified [place] 3=Moderate Assistance 7=Complete IndependenceSCALE: Activities may be completed with or without assistive devices. 1-Qhlmwcjegs-dqflxjz completes the activity by him/herself with no assistance from a helper. 5-Set-up or Clean-up Assistance-helper sets up or cleans up; patient completes activity. [place] assists only prior to or following the activity. 4-Supervision or Touching Assistance-helper provides verbal cues and/or touching/steadying and/or contact guard assistance as patient completes activity. Assistance may be provided throughout the activity or intermittently. 3-Partial/Moderate Assistance-helper does LESS THAN HALF the effort. [place] lifts, holds or supports trunk or limbs, but provides less than half the effort. 2-Substantial/Maximal Assistance-helper does MORE THAN HALF the effort. [place] lifts or holds trunk or limbs and provides more than half the effort. 6-Nyknjssmu-cawggg does ALL the effort. Patient does none of the effort to complete the activity. Or, the assistance of 2 or more helpers is required for the patient to complete the activity. If activity was not attempted, code reason: 7-Patient Refused. 9-Not Applicable-not attempted and the patient did not perform the activity before the current illness, exacerbation or injury. 10-Not Attempted due to Environmental Limitations-(lack of equipment, weather restraints, etc.). 88-Not Attempted due to Medical Conditions or Safety Concerns. Oral Hygiene (QC): 6 (Pt (I) with oral care seated at sink in WC with pt cleaning dentures.) Upper Body Dressing (QC): 3 (Partial/mod (A) with UBD in a seated position in WC with pt able to thread (B) UE's into sleeves and mandrel puller head; pt requires (A) to pull shirt down over abdomen and in the back) Lower Body Dressing (QC): 3 (Partial/mod (A) to don/doff pants while seated in WC; pt requires (A) to thread (B) into pants legs; sit<>stand performed with CGA x 1 where pt required (A) to pull pants over hips. Pt continues to not use door slinger when performing task. Will continue to introduce AE.) Toileting Hygiene (QC): 3 (Partial/mod (A) for toileting to manage clothing and to clean buttocks; pt voided while seated but buttocks needed to be cleaned.) Toilet Transfer (QC): 3 (SPT from WC<>BSC over toilet with Min A x 1 utilizing GB's for safety.) Pt continues to require numerous rest breaks while performing ADLs. Pt reported feeling dizzy after donning pants. BP assessed seated in WC with BP reading 130/71 and O2 93%. Other Treatment Supine>sit at EOB performed with SBA utilizing bedrails SPT from EOB>WC performed with CGA x 1 with RW ADLs performed during session (see scores above) See PT's note for functional mobility performed Pt performed sit<>stand activity x 3 trials in parallel bars to increase BLE strength, BUE strength, standing tolerance, activity tolerance, endurance, and functional mobility to increase (I) with ADLs and IADLs. Sit<>stand from WC performed with CGA x 1. Pt stood ~1 minute each trial with CGA x 1. Pt required verbal/tactile cues for posture a pt noted with posterior lean and flexed posture. First trial, pt performed marching in place. Second trial, pt performed kick backs. And third trial, pt stood in place with mirror placed for visual feedback for correct posture. Seated rest break needed secondary to fatigue. Pt reported no pain while performing task. No LOB noted. Education OT Patient Education: Correct positioning, Energy conservation, Exercise program, Modified ADL techniques, Progress toward Goal/Update tx plan, Purpose of tx/functional activities, Rehab process, Safety issues, Transfer techniques, Use of adapted equipment, W/C management Teaching Recipient: Patient Teaching Methods: Demonstration, Discussion Response to Teaching: Verbalize Understanding, Return Demonstration, Reinforcement Needed OT Project Control Manager Goals Project Control Manager Goals Acute change in mental status: 0 Inattention: 2 Disorganized thinkin Altered level of consciousness: 0 Eating (QC): 6 Oral Hygiene (QC): 6 Toileting Hygiene (QC): 4 Shower/Bathe Self (QC): 5 Upper Body Dressing (QC): 6 Lower Body Dressing (QC): 4 On/Off Footwear (QC): 5 1=Demonstrate adherence to instructed precautions during ADL tasks. 2=Patient will verbalize/demonstrate understanding of assistive devices/modifi cations for ADL. 3=Patient will improve strength/tolerance for activity to enable patient to perform ADL's. OT Education/Plan Problem List/Assessment Assessment: Decreased Activ Tolerance, Decreased UE Strength, Dependent Transfers, Edema, Impaired Bed Mobility, Impaired Coordination, Impaired Funct Balance, Impaired I ADL's, Impaired Self-Care Skills Discharge Recommendations Plan/Recommendations: Continue POC Comment Family education scheduled tomorrow with pt's . Will discuss any DME needs during family education. Barriers to Progress Housing layout, decreased endurance, decreased ADl performance, decreased BUE strength Target Placement Home with Treatment Plan/Plan of Care Treatment,Training & Education: Yes Patient would benefit from OT for education, treatment and training to promote independence in ADL's, mobility, safety and/or upper extremity function for ADL's. Plan of Care: ADL Retraining, Caregiver Training, Functional Mobility, Group Exercise/Act as Ind, UE Funct Exercise/Act Treatment Duration: Mar 22, 2023 Frequency: At least 5 of 7 days/Wk (IRF) Estimated Hrs Per Day: 1.5 hours per day Agreement: Yes Rehab Potential: Good Ending session, hand off with TYE Anita in therapy gym. Time Start Time: 09:00 Stop Time: 10:30 DATE: Mar 07, 2023 Total Time Billed (hr/min): 90 Billed Treatment Time 90 minutes Co-treat with PT from 15 - 0 (75 minutes) ADL 4 FA 2 WHIT DE LEON OT Mar 07, 2023 13:37
[2023-03-07] MEDS: TAMSULOSIN 0.4 MG (FLOMAX) CAP PO SCH (18:22)
[2023-03-07] MEDS: FINASTERIDE 5 MG TABLET PO SCH (18:22)
[2023-03-07 20:08] VITALS: BP 153/76
[2023-03-07] MEDS: HYPOCHLOROUS ACID/NaCl WOUND SOLN 250 ML IR PRN (20:35)
--- NOTE | 2023-03-08 05:06 | PM&R Progress Note ---
Subjective HPI/CC On Admission Date Seen by Provider: Mar 08, 2023 Time Seen by Provider: 12:00 Subjective/Events-last exam 03/08/2023: Patient doing much better No falls Receiving platelet infusion Much more alert today 03/07/2023: No major issues No pain reported BM+ Labs reviewed 03/06/2023: Much improved Slow recovery Labs reviewed No falls BM+ 03/05/2023: Patient doing really well Slow recovery but moving better at bedside Platelet count 16,000 so much improved We will monitor closely 03/04/2023: No major issues Platelets ordered by Dr Neri No pain Slow recovery 03/03/2023: Patient doing much better Slow recovery Dr. Anderson will be consulted and he will manage the transfusion requirement 03/02/2023: Patient still very weak Giving 1 unit of blood due to hemoglobin 7.8 Slow recovery Platelet count good Maintain on Levaquin we will check stop date soon Review of Systems General: Fatigue, Malaise Objective Exam Vital Signs Vital Signs Date Time Temp Pulse Resp B/P (MAP) Pulse Ox O2 Delivery O2 Flow Rate FiO2 03/08/23 20:43 Room Air 03/08/23 20:34 36.5 86 20 149/71 (97) 91 Capillary Refill : General Appearance: No Apparent Distress, WD/WN, Chronically ill HEENT: PERRL/EOMI, Normal ENT Inspection, Pharynx Normal Neck: Full Range of Motion, Normal Inspection, Non Tender, Supple, Carotid Bruit Respiratory: Chest Non Tender, Lungs Clear, Normal Breath Sounds, No Accessory Muscle Use, No Respiratory Distress Cardiovascular: Regular Rate, Rhythm, No Edema, No Gallop, No JVD, No Murmur, Normal Peripheral Pulses Gastrointestinal: Normal Bowel Sounds, No Organomegaly, No Pulsatile Mass, Non Tender, Soft Back: Normal Inspection, No CVA Tenderness, No Vertebral Tenderness Extremity: Normal Capillary Refill, Normal Inspection, Normal Range of Motion, Non Tender, No Calf Tenderness, No Pedal Edema Neurologic/Psychiatric: Alert, Oriented x3, transit worker II-XII Norm as Tested, Abnormal Gait, Depressed Affect, Motor Weakness (generalized) Skin: Normal Color, Warm/Dry Lymphatic: No Adenopathy Results/Procedures Lab Laboratory Tests 03/08/23 06:25 Patient resulted labs reviewed. FIM Transfers Therapy Code Descriptions/Definitions Functional [place] Measure: 0=Not Assessed/NA 4=Minimal Assistance 1=Total Assistance 5=Supervision or Setup 2=Maximal Assistance 6=Modified [place] 3=Moderate Assistance 7=Complete IndependenceSCALE: Activities may be completed with or without assistive devices. 4-Tlaacxxrcm-pofrcxu completes the activity by him/herself with no assistance from a helper. 5-Set-up or Clean-up Assistance-helper sets up or cleans up; patient completes activity. [place] assists only prior to or following the activity. 4-Supervision or Touching Assistance-helper provides verbal cues and/or touching/steadying and/or contact guard assistance as patient completes activity. Assistance may be provided throughout the activity or intermittently. 3-Partial/Moderate Assistance-helper does LESS THAN HALF the effort. [place] lifts, holds or supports trunk or limbs, but provides less than half the effort. 2-Substantial/Maximal Assistance-helper does MORE THAN HALF the effort. [place] lifts or holds trunk or limbs and provides more than half the effort. 3-Aprceixih-uizbhf does ALL the effort. Patient does none of the effort to complete the activity. Or, the assistance of 2 or more helpers is required for the patient to complete the activity. If activity was not attempted, code reason: 7-Patient Refused. 9-Not Applicable-not attempted and the patient did not perform the activity before the current illness, exacerbation or injury. 10-Not Attempted due to Environmental Limitations-(lack of equipment, weather restraints, etc.). 88-Not Attempted due to Medical Conditions or Safety Concerns. Roll Left to Right (QC): 4 Sit to Lying (QC): 4 Sit to Stand (QC): 4 Chair/Daa-rv-Eltym Xfer(QC): 3 Car Transfer (QC): 88 Gait Training Does the Patient Walk?: Yes Distance: 5ft Walk 10 feet (QC): 4 Walk 50 ft with 2 Turns(QC): 88 Walk 150 ft (QC): 88 Walking 10ft/uneven surface-QC: 88 Gait Assistive Device: FWW Wheelchair Training Does the Pt Use a Wheelchair?: Yes Distance: 50ft Wheel 50 ft with 2 turns (QC): 4 Wheel 150 ft (QC): 4 Type of Wheelchair: Manual Stair Training 1 Step (curb) (QC): 3 (Min A ) 4 Steps (QC): 88 (Pt unable to walk more than 15ft with the FWW, or negotiate stairs, due to poor core and hip strength. ) 12 Steps (QC): 88 (Pt unable to walk more than 15ft with the FWW, or negotiate stairs, due to poor core and hip strength. ) Balance Picking up an Object (QC): 3 (Min A with horses or mules teamster ) ADL-Treatment Eating (QC): 5 (set-up A to open packages) Oral Hygiene (QC): 6 (Pt (I) with oral care seated at sink in with pt cleaning dentures.) Bathing Location: L Arm, R Arm, L Upper Leg, R Upper Leg, L Lower Leg (includin g foot), R Lower Leg (including foot), Chest, Abdomen, Buttocks, Perineal Area Shower/Bathe Self (QC): 3 (Partial/mod A for bathing seated on built in shower bench with pt utilizing hand held shower head, GB's, and long handled sponge. ) Upper Body Dressing (QC): 3 (Partial/mod (A) with UBD in a seated position in with pt able to thread (B) UE's into sleeves and pick pulling machine operator head; pt requires (A) to pull shirt down over abdomen and in the back) Lower Body Dressing (QC): 3 (Partial/mod (A) to don/doff pants while seated in ; pt requires (A) to thread (B) into pants legs; sit<>stand performed with CGA x 1 where pt required (A) to pull pants over hips. Pt continues to not use horses or mules teamster when performing task. Will continue to introduce AE.) On/Off Footwear (QC): 3 (Partial/mod A for donning/doffing footwear; pt utilizing dressing stick to doff socks seated in WC with SBA; pt too fatigued to don sock seated in WC which required therapist to jennie (B) socks with total A) Toileting Hygiene (QC): 3 (Partial/mod (A) for toileting to manage clothing and to clean buttocks; pt voided while seated but buttocks needed to be cleaned.) Toilet Transfer (QC): 3 (SPT from <>BSC over toilet with Min A x 1 utilizing GB's for safety.) Assessment/Plan Assessment and Plan Assess & Plan/Chief Complaint Assessment: Critical illness myopathy with slow recovery AML 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 Anderson 03/04/2023: Transfused platelets 03/05/2023: Supportive care Slow recovery 03/06/2023: Monitor hgb and platelets 03/07/2023: Monitor closely Fall risk 03/08/2023: Transfuse as necessary Supportive care (1) Myopathy (2) Acute myelogenous leukemia Status: Acute (3) Atrial fibrillation Status: Chronic (4) CAD (coronary artery disease) (5) HTN (hypertension) Status: Chronic (6) BPH (benign prostatic hyperplasia) Status: Chronic JANEY NAQVI DO Mar 08, 2023 05:06
[2023-03-08] MEDS: CATHETER FLUSH 10 ML SYR IVP SCH ×3 (06:19→20:38)
[2023-03-08] MEDS: THERAPEUTIC MULTIVITAMIN W/MINERALS TABLET PO SCH (06:19)
[2023-03-08 06:40] LABS: BASOPHILS % (AUTO) 0 % (0-10); HEMOGLOBIN 7.7 g/dL (13.3-17.7); MEAN CORPUSCULAR VOLUME 98 fL (80-99); MONOCYTES % (AUTO) 48 % (0-12)
[2023-03-08 06:42] LABS: EOSINOPHILS % (AUTO) 4 % (0-10); HEMATOCRIT 23 % (40-54); LYMPHOCYTES # (AUTO) 4.7 10^3/uL (1.0-4.0); LYMPHOCYTES % (AUTO) 20 % (12-44); MEAN CORPUSCULAR HEMOGLOBIN 33 pg (25-34); MEAN CORPUSCULAR HGB CONC 34 g/dL (32-36); MONOCYTES # (AUTO) 11.2 10^3/uL (0.0-1.0); NEUTROPHILS % (AUTO) 25 % (42-75); WHITE BLOOD COUNT 23.6 10^3/uL (4.3-11.0)
[2023-03-08 06:43] LABS: PLATELET COUNT 5 10^3/uL (130-400)
[2023-03-08 06:48] LABS: POTASSIUM 3.6 MMOL/L (3.6-5.0)
[2023-03-08 06:49] LABS: CALCIUM 8.7 MG/DL (8.5-10.1)
[2023-03-08 07:48] VITALS: BP 144/85
[2023-03-08] MEDS: ACYCLOVIR 400 MG CAPSULE/TABLET PO SCH ×2 (08:19→20:36)
[2023-03-08] MEDS: PANTOPRAZOLE 20 MG TABLET PO SCH (08:19)
[2023-03-08] MEDS: OXYBUTYNIN 5 MG TABLET PO SCH ×3 (08:19→20:37)
[2023-03-08] MEDS: meTOprolol TARTRATE (IR) 25 MG TABLET PO SCH ×2 (08:20→20:38)
[2023-03-08] MEDS: DOCUSATE SODIUM 100 MG CAPSULE PO SCH ×2 (08:21→20:20)
[2023-03-08] MEDS: SENNA W/DOCUSATE TABLET PO SCH ×2 (08:21→20:20)
[2023-03-08] MEDS: MICONAZOLE 2% POWDER 90 GM TOP SCH ×2 (08:22→20:38)
[2023-03-08 08:54] VITALS: BP 163/77
[2023-03-08 09:16] VITALS: BP 135/72
[2023-03-08] MEDS: LevoFLOXacin 750 MG TABLET PO SCH (11:01)
--- NOTE | 2023-03-08 11:12 | Physical Therapy Daily Note ---
PT Daily Note-Current Subjective Pt sitting on toilet working w/OT upon arrival. Pt agrees to PT/OT co-treat. Co-treat with PT secondary to decreased endurance, activity tolerance, and the need of a second person for safety to increase (I) with functional tasks and to decrease burden of care. PT focusing on functional mobility and gait while OT focused on ADLs, assisting with standing and strengthening BUE's. Family education also held with this A.M. (see below functional activities performed during therapy). Pain Location: No Pain Reported Section J - Health Conditions 1. Rarely or not at all 2. Occasionally 3. Frequently 4. Almost constantly 8. Unable to answer Pain Effect on Sleep: 1 Pain Interference with Therapy: 1 Pain Interference w/Day-to-Day: 1 Mental Status Patient Orientation: Person, Place, Time, Situation Attachments: IV Transfers SCALE: Activities may be completed with or without assistive devices. 6-Nddfvyyiss-brchqwi completes the activity by him/herself with no assistance from a helper. 5-Set-up or Clean-up Assistance-helper sets up or cleans up; patient completes activity. [place] assists only prior to or following the activity. 4-Supervision or Touching Assistance-helper provides verbal cues and/or touching/steadying and/or contact guard assistance as patient completes activity. Assistance may be provided throughout the activity or intermittently. 3-Partial/Moderate Assistance-helper does LESS THAN HALF the effort. [place] lifts, holds or supports trunk or limbs, but provides less than half the effort. 2-Substantial/Maximal Assistance-helper does MORE THAN HALF the effort. [place] lifts or holds trunk or limbs and provides more than half the effort. 9-Ksxdszqyz-croumf does ALL the effort. Patient does none of the effort to complete the activity. Or, the assistance of 2 or more helpers is required for the patient to complete the activity. If activity was not attempted, code reason: 7-Patient Refused. 9-Not Applicable-not attempted and the patient did not perform the activity before the current illness, exacerbation or injury. 10-Not Attempted due to Environmental Limitations-(lack of equipment, weather restraints, etc.). 88-Not Attempted due to Medical Conditions or Safety Concerns. Sit to Stand (QC): 4 Toilet Transfer (QC): 4 Car Transfer (QC): 4 Weight Bearing Right Lower Extremity: Right Full Weight Bearing Left Lower Extremity: Left Full Weight Bearing Gait Training Does the Patient Walk?: Yes Distance: 50' Walk 10 feet (QC): 4 Walk 50 ft with 2 Turns(QC): 4 Gait Assistive Device: FWW Pt fatigues quickly Wheelchair Training Does the Pt Use a Wheelchair?: Yes Wheel 50 ft with 2 turns (QC): 4 Type of Wheelchair: Manual Stair Training Stair Training: Handrails/: 1 handrail #of Steps: 2 1 Step (curb) (QC): 3 4 Steps (QC): 3 Stairs: Pattern: Step to Treatments Pt completes ADLs (see OT note) with several RB as needed. Pt's arrives for Family Training. Pt amb in hallway before taking RB in w/c as needed. Car TF & Steps are practiced w/Sp watching demo. OT demo TF on Tub TF Bench to introduce Sp to AE for after pt gets stronger/less fatigue after d/c. Pt returns to room to rest & Sp completes TF from w/c to recliner via SPT w/VC from PT & OT as needed. Pt resting at end of tx. All needs & questions answered, call light in hand. Assessment Current Status: Good Progress Frequent RB given as needed for fatigue. Pt has gained strength but struggles w/fatigue. PT Assisted Goals Emg Technician Goals PT Assisted Goals Time Frame: Mar 15, 2023 Roll Left & Right (QC): 6 (Pt will be Mod I with all aspects of functional mobility to be able to safely return home with spouse. ) Sit to Lying (QC): 6 (Pt will be Mod I with all aspects of functional mobility to be able to safely return home with spouse. ) Lying-Sitting on Side/Bed(QC): 6 (Pt will be Mod I with all aspects of function al mobility to be able to safely return home with spouse. ) Sit to Stand (QC): 6 (Pt will be Mod I with all aspects of functional mobility to be able to safely return home with spouse. ) Chair/Onf-yo-Noxcr Xfer(QC): 6 (Pt will be Mod I with all aspects of functional mobility to be able to safely return home with spouse. ) Toilet Transfer (QC): 6 (Pt will be Mod I with all aspects of functional mobility to be able to safely return home with spouse. ) Car Transfer (QC): 6 (Pt will be Mod I with all aspects of functional mobility to be able to safely return home with spouse. ) Does the Patient Walk: Yes Walk 10 feet (QC): 6 (Pt will be Mod I with all aspects of functional mobility to be able to safely return home with spouse. ) Walk 50ft with 2 Turns (QC): 6 (Pt will be Mod I with all aspects of functional mobility to be able to safely return home with spouse. ) Walk 150 ft (QC): 6 (Pt will be Mod I with all aspects of functional mobility to be able to safely return home with spouse. ) Walking 10ft on Uneven Surface: 6 (Pt will be Mod I with all aspects of functional mobility to be able to safely return home with spouse. ) 1 Step (curb) (QC): 6 (Pt will be Mod I with all aspects of functional mobility to be able to safely return home with spouse. ) 4 Steps (QC): 6 (Pt will be Mod I with all aspects of functional mobility to be able to safely return home with spouse. ) 12 Steps (QC): 6 (Pt will be Mod I with all aspects of functional mobility to be able to safely return home with spouse. ) Picking up an Object (QC): 6 (Pt will be Mod I with all aspects of functional mobility to be able to safely return home with spouse. With film historian ) Does the Pt use WC or Scooter?: Yes Wheel 50 feet with 2 turns (QC: 6 (Pt will be Mod I with all aspects of functional mobility to be able to safely return home with spouse. ) Type: Manual Wheel 150 feet: 6 (Pt will be Mod I with all aspects of functional mobility to be able to safely return home with spouse. ) Type: Manual PT Plan Problem List Problem List: Activity Tolerance, Safety Treatment/Plan Treatment Plan: Continue Plan of Care Treatment Plan: Bed Mobility, Education, Functional Activity Dianne, Functional Strength, Group Therapy, Gait, Safety, Therapeutic Exercise, Transfers Treatment Duration: Mar 15, 2023 Frequency: At least 5 of 7 days/Wk (IRF) Estimated Hrs Per Day: 1.5 hours per day Patient and/or Family Agrees t: Yes Safety Risks/Education Patient Education: Gait Training, Transfer Techniques, Steps, Correct Positioning, Safety Issues Teaching Recipient: Patient, Significant Other Teaching Methods: Demonstration, Discussion Response to Teaching: Verbalize Understanding, Return Demonstration Time Time In: 0930 Time Out: 1100 DATE: Mar 08, 2023 Total Billed Treatment Time: 90 Total Billed Treatment Co-treat w/OT for 90m (930-1100) for tx & Family Training 1, FA x5 (70m) & [facility] (20m) JESSI STEVE CARD CHECKER Mar 08, 2023 11:12
--- NOTE | 2023-03-08 11:14 | Occupational Ther Daily Note ---
OT Current Status-Daily Note Subjective Pt semi-reclined in bed upon entering room. Pt consented to OT session this A.M. Co-treat with PT secondary to decreased endurance, activity tolerance, and the need of a second person for safety to increase (I) with functional tasks and to decrease burden of care. PT focusing on functional mobility and gait while OT focused on ADLs, assisting with standing and strengthening BUE's. Family education also held with this A.M. (see below functional activities performed during therapy). Pain Numeric Pain Scale: 0-No Pain Location: No Pain Reported Mental Status/Objective Patient Orientation: Person, Place, Time, Situation Attachments: IV ADL-Treatment Therapy Code Descriptions/Definitions Functional [place] Measure: 0=Not Assessed/NA 4=Minimal Assistance 1=Total Assistance 5=Supervision or Setup 2=Maximal Assistance 6=Modified [place] 3=Moderate Assistance 7=Complete IndependenceSCALE: Activities may be completed with or without assistive devices. 8-Uuwlxlmbey-eprlfzm completes the activity by him/herself with no assistance from a helper. 5-Set-up or Clean-up Assistance-helper sets up or cleans up; patient completes activity. [place] assists only prior to or following the activity. 4-Supervision or Touching Assistance-helper provides verbal cues and/or touching/steadying and/or contact guard assistance as patient completes activity. Assistance may be provided throughout the activity or intermittently. 3-Partial/Moderate Assistance-helper does LESS THAN HALF the effort. [place] lifts, holds or supports trunk or limbs, but provides less than half the effort. 2-Substantial/Maximal Assistance-helper does MORE THAN HALF the effort. [place] lifts or holds trunk or limbs and provides more than half the effort. 8-Vqvpcuifo-umsqtw does ALL the effort. Patient does none of the effort to complete the activity. Or, the assistance of 2 or more helpers is required for the patient to complete the activity. If activity was not attempted, code reason: 7-Patient Refused. 9-Not Applicable-not attempted and the patient did not perform the activity before the current illness, exacerbation or injury. 10-Not Attempted due to Environmental Limitations-(lack of equipment, weather restraints, etc.). 88-Not Attempted due to Medical Conditions or Safety Concerns. Lower Body Dressing (QC): 4 (Overall, pt is SBA with donning pants and underwear while seated in WC with pt able to thread BLE's into pants legs and underwear without the use of AE. Therapist educated pt on threading weaker leg (LLE) into pants leg first with pt verbalizing understanding. Pt able to pull p ants and underwear up to knees. Sit<>stand from WC performed with CGA x 1 with pt able to pull pants over hips. ) Toileting Hygiene (QC): 3 (Partial/mod A for toileting to unsure thoroughness when cleaning buttocks. Pt able to manage clothing. ) Toilet Transfer (QC): 4 (SPT from WC<>BSC over toilet with CGA x 1 utilizing RW.) Other Treatment Supine>sit at EOB performed with SBA SPT from EOB>WC performed with CGA x 1 with RW ADLs performed during the first half of the session (see scores above) Pt participated in car transfer and stair training to increase functional mobility, activity tolerance, endurance, and safety awareness. Refer to PT's note for specifics with car transfer and stairs. Family education held with pt's from 1015 - 1100. OT educated pt's on pt's CLOF with ADLs and self-care transfers, as well as DME that pt would benefit from upon D/C to ensure safety when performing ADLs when returning home. This therapist educated on the use of TTB (when pt is ready since shower is located on the second floor of the home). Pt and verbalized understanding the need of a TTB vs SC. Pt and also educated on the use of a test eng and a sock aide. At this time. pt declines using a test eng for ADLs. During therapy, we attempted to don socks with a sock aide, but pt's (B) feet are very swollen and he currently has BLE's in guerline bandages making it difficult to use sock aide. Pt verbalized understanding on how to use it and this therapist stated that he can continue to work with it in next level of care, such as home health. PT addressed stairs and car transfer as apart of their family education, as well having the participate in performing SPT with pt from WC>bedside recliner with CGA x 1. seems confident in functional mobility and ADLs at this time. Education OT Patient Education: Energy conservation, Exercise program, Instructions to caregiver, Modified ADL techniques, Progress toward Goal/Update tx plan, Purpose of tx/functional activities, Rehab process, Safety issues, Transfer techniques, Use of adapted equipment Teaching Recipient: Patient, Family Teaching Methods: Demonstration, Discussion Response to Teaching: Verbalize Understanding, Return Demonstration, Reinforcement Needed OT Halfway Goals Halfway Goals Acute change in mental status: 0 Inattention: 2 Disorganized thinkin Altered level of consciousness: 0 Eating (QC): 6 Oral Hygiene (QC): 6 Toileting Hygiene (QC): 4 Shower/Bathe Self (QC): 5 Upper Body Dressing (QC): 6 Lower Body Dressing (QC): 4 On/Off Footwear (QC): 5 1=Demonstrate adherence to instructed precautions during ADL tasks. 2=Patient will verbalize/demonstrate understanding of assistive devices/modifications for ADL. 3=Patient will improve strength/tolerance for activity to enable patient to perform ADL's. OT Education/Plan Problem List/Assessment Assessment: Decreased Activ Tolerance, Decreased Safety Aware, Decreased UE Strength, Edema, Impaired Bed Mobility, Impaired Funct Balance, Impaired I ADL's, Impaired Self-Care Skills Discharge Recommendations Plan/Recommendations: Continue POC Comment Spoke with and pt on the need of a TTB, when pt is able to shower in upstairs bathroom. Pt and stated he already has a BSC at home. Barriers to Progress Decreased endurance, activity tolerance, and increased fatigue. Target Placement Home with spouse; HHOT Treatment Plan/Plan of Care Treatment,Training & Education: Yes Patient would benefit from OT for education, treatment and training to promote independence in ADL's, mobility, safety and/or upper extremity function for ADL's. Plan of Care: ADL Retraining, Caregiver Training, Functional Mobility, Group Exercise/Act as Ind, UE Funct Exercise/Act Treatment Duration: Mar 22, 2023 Frequency: At least 5 of 7 days/Wk (IRF) Estimated Hrs Per Day: 1.5 hours per day Agreement: Yes Rehab Potential: Good Ending session, pt remained seated in bedside chair with needs/call light in reach and at bedside. Time Start Time: 09:30 Stop Time: 11:00 DATE: Mar 08, 2023 Total Time Billed (hr/min): 90 Billed Treatment Time 90 minutes Co-treat with PT from 0930 - 1100 ADL 3 FA 3 WHIT [place] LE[place], OT Mar 08, 2023 11:14
[2023-03-08 11:52] VITALS: BP 135/62
[2023-03-08] MEDS: NS IV 500 ML 500 ML IV SCH ×2 (12:17→20:21)
[2023-03-08] MEDS: TAMSULOSIN 0.4 MG (FLOMAX) CAP PO SCH (17:37)
[2023-03-08] MEDS: FINASTERIDE 5 MG TABLET PO SCH (17:37)
[2023-03-08 20:34] VITALS: BP 149/71
[2023-03-09] MEDS: THERAPEUTIC MULTIVITAMIN W/MINERALS TABLET PO SCH (06:17)
[2023-03-09] MEDS: CATHETER FLUSH 10 ML SYR IVP SCH ×3 (06:17→20:43)
--- NOTE | 2023-03-09 06:20 | PM&R Progress Note ---
Subjective HPI/CC On Admission Date Seen by Provider: Mar 09, 2023 Time Seen by Provider: 12:30 Subjective/Events-last exam 03/09/2023: No major issues Transfusion maintained NO falls Improved strength Dr Neri met with about prognosis with the patient in the discussion Prognosis guarded 03/08/2023: Patient doing much better No falls Receiving platelet infusion Much more alert today 03/07/2023: No major issues No pain reported BM+ Labs reviewed 03/06/2023: Much improved Slow recovery Labs reviewed No falls BM+ 03/05/2023: Patient doing really well Slow recovery but moving better at bedside Platelet count 16,000 so much improved We will monitor closely 03/04/2023: No major issues Platelets ordered by Dr Neri No pain Slow recovery 03/03/2023: Patient doing much better Slow recovery Dr. Anderson will be consulted and he will manage the transfusion requirement 03/02/2023: Patient still very weak Giving 1 unit of blood due to hemoglobin 7.8 Slow recovery Platelet count good Maintain on Leva[place] we will check stop date soon Review of Systems General: Fatigue, Malaise Objective Exam Vital Signs Vital Signs Date Time Temp Pulse Resp B/P (MAP) Pulse Ox O2 Delivery O2 Flow Rate FiO2 03/09/23 19:50 36.9 107 20 164/69 (100) 92 Room Air Capillary Refill : General Appearance: No Apparent Distress, WD/WN, Chronically ill HEENT: PERRL/EOMI, Normal ENT Inspection, Pharynx Normal Neck: Full Range of Motion, Normal Inspection, Non Tender, Supple, Carotid Bruit Respiratory: Chest Non Tender, Lungs Clear, Normal Breath Sounds, No Accessory Muscle Use, No Respiratory Distress Cardiovascular: Regular Rate, Rhythm, No Edema, No Gallop, No JVD, No Murmur, Normal Peripheral Pulses Gastrointestinal: Normal Bowel Sounds, No Organomegaly, No Pulsatile Mass, Non Tender, Soft Back: Normal Inspection, No CVA Tenderness, No Vertebral Tenderness Extremity: Normal Capillary Refill, Normal Inspection, Normal Range of Motion, Non Tender, No Calf Tenderness, No Pedal Edema Neurologic/Psychiatric: Alert, Oriented x3, 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 FIM Transfers Therapy Code Descriptions/Definitions Functional [place] Measure: 0=Not Assessed/NA 4=Minimal Assistance 1=Total Assistance 5=Supervision or Setup 2=Maximal Assistance 6=Modified [place] 3=Moderate Assistance 7=Complete IndependenceSCALE: Activities may be completed with or without assistive devices. 9-Wapilnjlaz-sbbcuiu completes the activity by him/herself with no assistance from a helper. 5-Set-up or Clean-up Assistance-helper sets up or cleans up; patient completes activity. [place] assists only prior to or following the activity. 4-Supervision or Touching Assistance-helper provides verbal cues and/or touching/steadying and/or contact guard assistance as patient completes activity. Assistance may be provided throughout the activity or intermittently. 3-Partial/Moderate Assistance-helper does LESS THAN HALF the effort. [place] lifts, holds or supports trunk or limbs, but provides less than half the effort. 2-Substantial/Maximal Assistance-helper does MORE THAN HALF the effort. [place] lifts or holds trunk or limbs and provides more than half the effort. 3-Mvrdutxnq-mnkygi does ALL the effort. Patient does none of the effort to complete the activity. Or, the assistance of 2 or more helpers is required for the patient to complete the activity. If activity was not attempted, code reason: 7-Patient Refused. 9-Not Applicable-not attempted and the patient did not perform the activity before the current illness, exacerbation or injury. 10-Not Attempted due to Environmental Limitations-(lack of equipment, weather restraints, etc.). 88-Not Attempted due to Medical Conditions or Safety Concerns. Roll Left to Right (QC): 4 Sit to Lying (QC): 4 Sit to Stand (QC): 4 Chair/Ngz-rn-Ewwls Xfer(QC): 3 Car Transfer (QC): 4 Gait Training Does the Patient Walk?: Yes Distance: 50' Walk 10 feet (QC): 4 Walk 50 ft with 2 Turns(QC): 4 Walk 150 ft (QC): 88 Walking 10ft/uneven surface-QC: 88 Gait Assistive Device: FWW Wheelchair Training Does the Pt Use a Wheelchair?: Yes Distance: 50ft Wheel 50 ft with 2 turns (QC): 4 Wheel 150 ft (QC): 4 Type of Wheelchair: Manual Stair Training Stair Training: Handrails/: 1 handrail #of Steps: 2 1 Step (curb) (QC): 3 4 Steps (QC): 3 12 Steps (QC): 88 (Pt unable to walk more than 15ft with the FWW, or negotiate stairs, due to poor core and hip strength. ) Stairs: Pattern: Step to Balance Picking up an Object (QC): 3 (Min A with shower screen installer ) ADL-Treatment Eating (QC): 5 (set-up A to open packages) Oral Hygiene (QC): 6 (Pt (I) with oral care seated at sink in WC with pt cleaning dentures.) Bathing Location: L Arm, R Arm, L Upper Leg, R Upper Leg, L Lower Leg (including foot), R Lower Leg (including foot), Chest, Abdomen, Buttocks, Perineal Area Shower/Bathe Self (QC): 3 (Partial/mod A for bathing seated on built in shower bench with pt utilizing hand held shower head, GB's, and long handled sponge. ) Upper Body Dressing (QC): 3 (Partial/mod (A) with UBD in a seated position in WC with pt able to thread (B) UE's into sleeves and dry chain puller head; pt requires (A) to pull shirt down over abdomen and in the back) Lower Body Dressing (QC): 4 (Overall, pt is SBA with donning pants and underwear while seated in WC with pt able to thread BLE's into pants legs and underwear without the use of AE. Therapist educated pt on threading weaker leg (LLE) into pants leg first with pt verbalizing understanding. Pt able to pull pa nts and underwear up to knees. Sit<>stand from WC performed with CGA x 1 with pt able to pull pants over hips. ) On/Off Footwear (QC): 3 (Partial/mod A for donning/doffing footwear; pt utilizing dressing stick to doff socks seated in WC with SBA; pt too fatigued to don sock seated in WC which required therapist to jennie (B) socks with total A) Toileting Hygiene (QC): 3 (Partial/mod A for toileting to unsure thoroughness when cleaning buttocks. Pt able to manage clothing. 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 Anderson 03/04/2023: Transfused platelets 03/05/2023: Supportive care Slow recovery 03/06/2023: Monitor hgb and platelets 03/07/2023: Monitor closely Fall risk 03/08/2023: Transfuse as necessary Supportive care 03/09/2023: Monitor pain (1) Myopathy (2) Acute myelogenous leukemia Status: Acute (3) Atrial fibrillation Status: Chronic (4) CAD (coronary artery disease) (5) HTN (hypertension) Status: Chronic (6) BPH (benign prostatic hyperplasia) Status: Chronic JANEY NAQVI DO Mar 09, 2023 06:20
[2023-03-09 06:29] LABS: BASOPHILS % (AUTO) 0 % (0-10)
[2023-03-09 06:30] LABS: EOSINOPHILS % (AUTO) 4 % (0-10); HEMATOCRIT 22 % (40-54); HEMOGLOBIN 7.4 g/dL (13.3-17.7); LYMPHOCYTES # (AUTO) 5.9 10^3/uL (1.0-4.0); LYMPHOCYTES % (AUTO) 24 % (12-44); MEAN CORPUSCULAR HEMOGLOBIN 33 pg (25-34); MEAN CORPUSCULAR HGB CONC 33 g/dL (32-36); MEAN CORPUSCULAR VOLUME 98 fL (80-99); MEAN PLATELET VOLUME 9.4 fL (9.0-12.2); MONOCYTES # (AUTO) 10.1 10^3/uL (0.0-1.0); MONOCYTES % (AUTO) 41 % (0-12); NEUTROPHILS # (AUTO) 5.7 10^3/uL (1.8-7.8); NEUTROPHILS % (AUTO) 23 % (42-75); WHITE BLOOD COUNT 24.5 10^3/uL (4.3-11.0)
[2023-03-09 06:34] LABS: PLATELET COUNT 14 10^3/uL (130-400)
[2023-03-09] MEDS: PANTOPRAZOLE 20 MG TABLET PO SCH (07:49)
[2023-03-09] MEDS: OXYBUTYNIN 5 MG TABLET PO SCH ×3 (07:49→20:40)
[2023-03-09] MEDS: DOCUSATE SODIUM 100 MG CAPSULE PO SCH ×2 (07:49→20:40)
[2023-03-09] MEDS: meTOprolol TARTRATE (IR) 25 MG TABLET PO SCH ×2 (07:49→20:39)
[2023-03-09] MEDS: ACYCLOVIR 400 MG CAPSULE/TABLET PO SCH ×2 (07:50→20:39)
[2023-03-09] MEDS: SENNA W/DOCUSATE TABLET PO SCH ×2 (07:51→20:43)
[2023-03-09] MEDS: MICONAZOLE 2% POWDER 90 GM TOP SCH ×2 (07:52→20:43)
[2023-03-09] MEDS: HYPOCHLOROUS ACID/NaCl WOUND SOLN 250 ML IR PRN (07:52)
[2023-03-09 08:00] VITALS: BP 156/78
[2023-03-09] MEDS ORDERED: NS IV 500 ML 500 ML IV SCH (09:15)
--- NOTE | 2023-03-09 10:28 | Occupational Ther Daily Note ---
OT Current Status-Daily Note Subjective Pt alert, sitting in recliner. Pt agrees to therapy. No c/o of pain during session. Oncologist visited with pt and spouse to update on status of diagnosis. OT/PT cotreat ([id number]), skills of 2 clinicians required to decrease fall risk and increase functional mobility for functional tasks. PT focus on education, w/c mobility, and energy conservation for functional tasks. OT focus on energy conservation, ADLs, and B UE strengthening during w/c mobility for functional tasks. Mental Status/Objective Patient Orientation: Person, Place, Time, Situation ADL-Treatment Therapy Code Descriptions/Definitions Functional [place] Measure: 0=Not Assessed/NA 4=Minimal Assistance 1=Total Assistance 5=Supervision or Setup 2=Maximal Assistance 6=Modified [place] 3=Moderate Assistance 7=Complete IndependenceSCALE: Activities may be completed with or without assistive devices. 8-Dnocdeycgu-urxkbkb completes the activity by him/herself with no assistance from a helper. 5-Set-up or Clean-up Assistance-helper sets up or cleans up; patient completes activity. [place] assists only prior to or following the activity. 4-Supervision or Touching Assistance-helper provides verbal cues and/or touching/steadying and/or contact guard assistance as patient completes activity. Assistance may be provided throughout the activity or intermittently. 3-Partial/Moderate Assistance-helper does LESS THAN HALF the effort. [place] lifts, holds or supports trunk or limbs, but provides less than half the effort. 2-Substantial/Maximal Assistance-helper does MORE THAN HALF the effort. [place] lifts or holds trunk or limbs and provides more than half the effort. 9-Yghwwnzql-eufqer does ALL the effort. Patient does none of the effort to complete the activity. Or, the assistance of 2 or more helpers is required for the patient to complete the activity. If activity was not attempted, code reason: 7-Patient Refused. 9-Not Applicable-not attempted and the patient did not perform the activity before the current illness, exacerbation or injury. 10-Not Attempted due to Environmental Limitations-(lack of equipment, weather restraints, etc.). 88-Not Attempted due to Medical Conditions or Safety Concerns. Upper Body Dressing (QC): 5 (Placed clothing on FWW in front of pt for set up. Pt able to don/doff shirt by self. Suggestions given on modified dressing techniques for energy conservation. ) Lower Body Dressing (QC): 5 (Pt able to thread underwear/pants around feet by self. Pt utilized FWW for steadying in standing to hike pants over hips.) Pt requires increased time during ADLs and functional activities due to quick fatigue and lengthy resting breaks. Pt education on modified dressing techniques to conserve energy. Pt demonstrated understanding, but continued to complete dressing his desired way resulting in lengthy rest break. Other Treatment After ADLs, OT/PT cotreat ([id number]). Pt propelled w/c intermittently from room-> elevator requiring rest breaks due to fatigue. Went to 1st floor and pt continued to intermittently propel to outdoor area. See PT notes for more info. PT focus on LE strengthening and w/c mobility while OT focus on UE strengthening to propell w/c, postural alignment/strengthening, and activity tolerance for functional tasks. PT/OT extensive education given to pts spouse and pt on discharge options due to pts concerns after discharge and rehab process. stock house worker and nrsg was notified and assisted in addressing concerns for family. Multi-discipline/team involvement required for education options for family. Pt sitting in w/c, ended session in PTs care with all needs met. Education OT Patient Education: Correct positioning, Disease process, Energy conservation, Modified ADL techniques, Rehab process, W/C management Teaching Recipient: Patient, Significant Other Teaching Methods: Demonstration, Discussion Response to Teaching: Verbalize Understanding, Return Demonstration OT Fugitive Detective Goals Long-Term Goals Acute change in mental status: 0 Inattention: 2 Disorganized thinkin Altered level of consciousness: 0 Eating (QC): 6 Oral Hygiene (QC): 6 Toileting Hygiene (QC): 4 Shower/Bathe Self (QC): 5 Upper Body Dressing (QC): 6 Lower Body Dressing (QC): 4 On/Off Footwear (QC): 5 1=Demonstrate adherence to instructed precautions during ADL tasks. 2=Patient will verbalize/demonstrate understanding of assistive devices/modifications for ADL. 3=Patient will improve strength/tolerance for activity to enable patient to perform ADL's. OT Education/Plan Problem List/Assessment Assessment: Decreased Activ Tolerance, Decreased UE Strength Discharge Recommendations Plan/Recommendations: Continue POC Treatment Plan/Plan of Care Patient would benefit from OT for education, treatment and training to promote independence in ADL's, mobility, safety and/or upper extremity function for ADL's. Plan of Care: ADL Retraining, Caregiver Training, Functional Mobility, Group Exercise/Act as Ind, UE Funct Exercise/Act Treatment Duration: Mar 22, 2023 Frequency: At least 5 of 7 days/Wk (IRF) Estimated Hrs Per Day: 1.5 hours per day Agreement: Yes Rehab Potential: Good Time Start Time: 08:30 Stop Time: 10:00 DATE: Mar 09, 2023 Total Time Billed (hr/min): 90 Billed Treatment Time 1 visit- ADL 2 (30 min) FA 4 (60), cotreat ([id number]), individual ([id number]) [place] Mar 09, 2023 10:28
--- NOTE | 2023-03-09 10:49 | Physical Therapy Daily Note ---
PT Daily Note-Current Subjective Pt sitting in recliner upon arrival. Pt agrees to PT/OT co-treat. Oncologist visited with pt and spouse to update on status of diagnosis. OT/PT cotreat ([id number]), skills of 2 clinicians required to decrease fall risk and increase functional mobility for functional tasks. PT focus on education, w/c mobility, and energy conservation for functional tasks. OT focus on energy conservation, ADLs, and B UE strengthening during w/c mobility for functional tasks. Pain Section J - Health Conditions 1. Rarely or not at all 2. Occasionally 3. Frequently 4. Almost constantly 8. Unable to answer Pain Effect on Sleep: 1 Pain Interference with Therapy: 1 Pain Interference w/Day-to-Day: 1 Transfers SCALE: Activities may be completed with or without assistive devices. 1-Gsjmmmgnvp-pxbeclc completes the activity by him/herself with no assistance from a helper. 5-Set-up or Clean-up Assistance-helper sets up or cleans up; patient completes activity. [place] assists only prior to or following the activity. 4-Supervision or Touching Assistance-helper provides verbal cues and/or touching/steadying and/or contact guard assistance as patient completes activity. Assistance may be provided throughout the activity or intermittently. 3-Partial/Moderate Assistance-helper does LESS THAN HALF the effort. [place] lifts, holds or supports trunk or limbs, but provides less than half the effort. 2-Substantial/Maximal Assistance-helper does MORE THAN HALF the effort. [place] lifts or holds trunk or limbs and provides more than half the effort. 6-Szadgxctf-ddzwjo does ALL the effort. Patient does none of the effort to complete the activity. Or, the assistance of 2 or more helpers is required for the patient to complete the activity. If activity was not attempted, code reason: 7-Patient Refused. 9-Not Applicable-not attempted and the patient did not perform the activity before the current illness, exacerbation or injury. 10-Not Attempted due to Environmental Limitations-(lack of equipment, weather restraints, etc.). 88-Not Attempted due to Medical Conditions or Safety Concerns. Sit to Stand (QC): 5 Toilet Transfer (QC): 5 Weight Bearing Right Lower Extremity: Right Full Weight Bearing Left Lower Extremity: Left Full Weight Bearing Wheelchair Training Does the Pt Use a Wheelchair?: Yes Wheel 50 ft with 2 turns (QC): 5 Wheel 150 ft (QC): 5 Type of Wheelchair: Manual Treatments After ADLs, OT/PT cotreat ([id number]). Pt propelled w/c intermittently from room-> elevator requiring rest breaks due to fatigue. Went to 1st floor and pt continued to intermittently propel to outdoor area. PT focus on LE strengthening and w/c mobility while OT focus on UE strengthening to propel w/c, postural alignment/strengthening, and activity tolerance for functional tasks. PT/OT exte nsive education given to pts spouse and pt on discharge options due to pts concerns after discharge and rehab process. farm forestry and garden workers and nrsg was notified and assisted in addressing concerns for family. Multi-discipline/team involvement required for education options for family. OT departs at this time, PT continues to work on propelling w/c and LE strengthening. Pt doesn't feel s saleem enough right now to amb. Pt returns to ARU unit then room at end of tx. Pt resting in recliner with all needs met, call light next to pt. Assessment Current Status: Fair Progress Pt taken outside per Pt & Sp request 2/2 nice weather and Pt feeling down about recent Oncology news. Pt continues to fatigue easily. Strength has improved but fatigue not anticipated to improve unless health improves. PT Nursing Home Goals Upholstery Technician Goals PT Nursing Home Goals Time Frame: Mar 15, 2023 Roll Left & Right (QC): 6 (Pt will be Mod I with all aspects of functional mobility to be able to safely return home with spouse. ) Sit to Lying (QC): 6 (Pt will be Mod I with all aspects of functional mobility to be able to safely return home with spouse. ) Lying-Sitting on Side/Bed(QC): 6 (Pt will be Mod I with all aspects of functional mobility to be able to safely return home with spouse. ) Sit to Stand (QC): 6 (Pt will be Mod I with all aspects of functional mobility to be able to safely return home with spouse. ) Chair/Zex-jh-Zjnom Xfer(QC): 6 (Pt will be Mod I with all aspects of functional mobility to be able to safely return home with spouse. ) Toilet Transfer (QC): 6 (Pt will be Mod I with all aspects of functional mobility to be able to safely return home with spouse. ) Car Transfer (QC): 6 (Pt will be Mod I with all aspects of functional mobility to be able to safely return home with spouse. ) Does the Patient Walk: Yes Walk 10 feet (QC): 6 (Pt will be Mod I with all aspects of functional mobility to be able to safely return home with spouse. ) Walk 50ft with 2 Turns (QC): 6 (Pt will be Mod I with all aspects of functional mobility to be able to safely return home with spouse. ) Walk 150 ft (QC): 6 (Pt will be Mod I with all aspects of functional mobility to be able to safely return home with spouse. ) Walking 10ft on Uneven Surface: 6 (Pt will be Mod I with all aspects of functional mobility to be able to safely return home with spouse. ) 1 Step (curb) (QC): 6 (Pt will be Mod I with all aspects of functional mobility to be able to safely return home with spouse. ) 4 Steps (QC): 6 (Pt will be Mod I with all aspects of functional mobility to be able to safely return home with spouse. ) 12 Steps (QC): 6 (Pt will be Mod I with all aspects of functional mobility to be able to safely return home with spouse. ) Picking up an Object (QC): 6 (Pt will be Mod I with all aspects of functional mobility to be able to safely return home with spouse. With director of content and programming ) Does the Pt use WC or Scooter?: Yes Wheel 50 feet with 2 turns (QC: 6 (Pt will be Mod I with all aspects of func tional mobility to be able to safely return home with spouse. ) Type: Manual Wheel 150 feet: 6 (Pt will be Mod I with all aspects of functional mobility to be able to safely return home with spouse. ) Type: Manual PT Plan Problem List Problem List: Activity Tolerance Treatment/Plan Treatment Plan: Continue Plan of Care Treatment Plan: Bed Mobility, Education, Functional Activity Dianne, Functional Strength, Group Therapy, Gait, Safety, Therapeutic Exercise, Transfers Treatment Duration: Mar 15, 2023 Frequency: At least 5 of 7 days/Wk (IRF) Estimated Hrs Per Day: 1.5 hours per day Patient and/or Family Agrees t: Yes Safety Risks/Education Patient Education: W/C Management Teaching Recipient: Patient Teaching Methods: Discussion Response to Teaching: Verbalize Understanding Time Time In: 0900 Time Out: 1030 DATE: Mar 09, 2023 Total Billed Treatment Time: 90 Total Billed Treatment 1, [facility] x2 (35m) & FA x4 (55m) JESSI STEVE HANDLE MACHINE OPERATOR Mar 09, 2023 10:49
[2023-03-09 11:52] VITALS: BP 145/69
[2023-03-09] MEDS: LevoFLOXacin 750 MG TABLET PO SCH (11:58)
[2023-03-09 12:13] VITALS: BP 151/67
[2023-03-09 14:53] VITALS: BP 164/79
[2023-03-09] MEDS: FINASTERIDE 5 MG TABLET PO SCH (17:12)
[2023-03-09] MEDS: TAMSULOSIN 0.4 MG (FLOMAX) CAP PO SCH (17:12)
[2023-03-09] MEDS: NS IV 500 ML 500 ML IV SCH (19:37)
[2023-03-09 19:50] VITALS: BP 164/69
--- NOTE | 2023-03-10 05:30 | PM&R Progress Note ---
Subjective HPI/CC On Admission Date Seen by Provider: Mar 10, 2023 Time Seen by Provider: 12:00 Subjective/Events-last exam 03/10/2023: Patient seems to be doing better No major concerns Reviewed meds and labs No major concerns 03/09/2023: No major issues Transfusion maintained NO falls Improved strength Dr Neri met with about prognosis with the patient in the discussion Prognosis guarded 03/08/2023: Patient doing much better No falls Receiving platelet infusion Much more alert today 03/07/2023: No major issues No pain reported BM+ Labs reviewed 03/06/2023: Much improved Slow recovery Labs reviewed No falls BM+ 03/05/2023: Patient doing really well Slow recovery but moving better at bedside Platelet count 16,000 so much improved We will monitor closely 03/04/2023: No major issues Platelets ordered by Dr Neri No pain Slow recovery 03/03/2023: Patient doing much better Slow recovery Dr. Anderson will be consulted and he will manage the transfusion requirement 03/02/2023: Patient still very weak Giving 1 unit of blood due to hemoglobin 7.8 Slow recovery Platelet count good Maintain on Levaquin we will check stop date soon Review of Systems General: Fatigue, Malaise Objective Exam Vital Signs Vital Signs Date Time Temp Pulse Resp B/P (MAP) Pulse Ox O2 Delivery O2 Flow Rate FiO2 03/10/23 21:58 79 146/68 (94) 03/10/23 20:15 36.7 24 91 Room Air Capillary Refill : General Appearance: No Apparent Distress, WD/WN, Chronically ill HEENT: PERRL/EOMI, Normal ENT Inspection, Pharynx Normal Neck: Full Range of Motion, Normal Inspection, Non Tender, Supple, Carotid Bruit Respiratory: Chest Non Tender, Lungs Clear, Normal Breath Sounds, No Accessory Muscle Use, No Respiratory Distress Cardiovascular: Regular Rate, Rhythm, No Edema, No Gallop, No JVD, No Murmur, Normal Peripheral Pulses Gastrointestinal: Normal Bowel Sounds, No Organomegaly, No Pulsatile Mass, Non Tender, Soft Back: Normal Inspection, No CVA Tenderness, No Vertebral Tenderness Extremity: Normal Capillary Refill, Normal Inspection, Normal Range of Motion, Non Tender, No Calf Tenderness, No Pedal Edema Neurologic/Psychiatric: Alert, Oriented x3, bioprocessing manufacturing technician II-XII Norm as Tested, Abnormal Gait, Depressed Affect, Motor Weakness (generalized) Skin: Normal Color, Warm/Dry Lymphatic: No Adenopathy Results/Procedures Lab Laboratory Tests 03/10/23 06:20 Patient resulted labs reviewed. FIM Transfers Therapy Code Descriptions/Definitions Functional [place] Measure: 0=Not Assessed/NA 4=Minimal Assistance 1=Total Assistance 5=Supervision or Setup 2=Maximal Assistance 6=Modified [place] 3=Moderate Assistance 7=Complete IndependenceSCALE: Activities may be completed with or without assistive devices. 0-Xmaozeqwik-ahvxvaa completes the activity by him/herself with no assistance from a helper. 5-Set-up or Clean-up Assistance-helper sets up or cleans up; patient completes activity. [place] assists only prior to or following the activity. 4-Supervision or Touching Assistance-helper provides verbal cues and/or touching/steadying and/or contact guard assistance as patient completes activity. Assistance may be provided throughout the activity or intermittently. 3-Partial/Moderate Assistance-helper does LESS THAN HALF the effort. [place] lifts, holds or supports trunk or limbs, but provides less than half the effort. 2-Substantial/Maximal Assistance-helper does MORE THAN HALF the effort. [place] lifts or holds trunk or limbs and provides more than half the effort. 0-Wacfarywa-jvziwi does ALL the effort. Patient does none of the effort to complete the activity. Or, the assistance of 2 or more helpers is required for the patient to complete the activity. If activity was not attempted, code reason: 7-Patient Refused. 9-Not Applicable-not attempted and the patient did not perform the activity before the current illness, exacerbation or injury. 10-Not Attempted due to Environmental Limitations-(lack of equipment, weather restraints, etc.). 88-Not Attempted due to Medical Conditions or Safety Concerns. Roll Left to Right (QC): 4 Sit to Lying (QC): 4 Sit to Stand (QC): 5 Chair/Gas-ic-Gdbvn Xfer(QC): 3 Car Transfer (QC): 4 Gait Training Does the Patient Walk?: Yes Distance: 50' Walk 10 feet (QC): 4 Walk 50 ft with 2 Turns(QC): 4 Walk 150 ft (QC): 88 Walking 10ft/uneven surface-QC: 88 Gait Assistive Device: FWW Wheelchair Training Does the Pt Use a Wheelchair?: Yes Distance: 50ft Wheel 50 ft with 2 turns (QC): 5 Wheel 150 ft (QC): 5 Type of Wheelchair: Manual Stair Training Stair Training: Handrails/: 1 handrail #of Steps: 2 1 Step (curb) (QC): 3 4 Steps (QC): 3 12 Steps (QC): 88 (Pt unable to walk more than 15ft with the FWW, or negotiate stairs, due to poor core and hip strength. ) Stairs: Pattern: Step to Balance Picking up an Object (QC): 3 (Min A with optician apprentice ) ADL-Treatment Eating (QC): 5 (set-up A to open packages) Oral Hygiene (QC): 6 (Pt (I) with oral care seated at sink in WC with pt cleaning dentures.) Bathing Location: L Arm, R Arm, L Upper Leg, R Upper Leg, L Lower Leg (incl uding foot), R Lower Leg (including foot), Chest, Abdomen, Buttocks, Perineal Area Shower/Bathe Self (QC): 3 (Partial/mod A for bathing seated on built in shower bench with pt utilizing hand held shower head, GB's, and long handled sponge. ) Upper Body Dressing (QC): 5 (Placed clothing on FWW in front of pt for set up. Pt able to don/doff shirt by self. Suggestions given on modified dressing techniques for energy conservation. ) Lower Body Dressing (QC): 5 (Pt able to thread underwear/pants around feet by self. Pt utilized FWW for steadying in standing to hike pants over hips.) On/Off Footwear (QC): 3 (Partial/mod A for donning/doffing footwear; pt utilizing dressing stick to doff socks seated in WC with SBA; pt too fatigued to don sock seated in WC which required therapist to jennie (B) socks with total A) Toileting Hygiene (QC): 3 (Partial/mod A for toileting to unsure thoroughness when cleaning buttocks. Pt able to manage clothing. 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 Anderson 03/04/2023: Transfused platelets 03/05/2023: Supportive care Slow recovery 03/06/2023: Monitor hgb and platelets 03/07/2023: Monitor closely Fall risk 03/08/2023: Transfuse as necessary Supportive care 03/09/2023: Monitor pain 03/10/2023: Supportive care Monitor closely (1) Myopathy (2) Acute myelogenous leukemia Status: Acute (3) Atrial fibrillation Status: Chronic (4) CAD (coronary artery disease) (5) HTN (hypertension) Status: Chronic (6) BPH (benign prostatic hyperplasia) Status: Chronic JANEY NAQVI DO Mar 10, 2023 05:30
[2023-03-10] MEDS: THERAPEUTIC MULTIVITAMIN W/MINERALS TABLET PO SCH (06:16)
[2023-03-10] MEDS: CATHETER FLUSH 10 ML SYR IVP SCH ×3 (06:17→20:42)
[2023-03-10 06:31] LABS: BASOPHILS % (AUTO) 0 % (0-10); EOSINOPHILS # (AUTO) 0.9 10^3/uL (0.0-0.3); EOSINOPHILS % (AUTO) 4 % (0-10); HEMATOCRIT 24 % (40-54); LYMPHOCYTES # (AUTO) 6.3 10^3/uL (1.0-4.0); LYMPHOCYTES % (AUTO) 25 % (12-44); MEAN CORPUSCULAR HEMOGLOBIN 32 pg (25-34); MEAN CORPUSCULAR HGB CONC 33 g/dL (32-36); MEAN CORPUSCULAR VOLUME 97 fL (80-99); MEAN PLATELET VOLUME 12.6 fL (9.0-12.2); MONOCYTES # (AUTO) 9.9 10^3/uL (0.0-1.0); MONOCYTES % (AUTO) 39 % (0-12); NEUTROPHILS # (AUTO) 6.2 10^3/uL (1.8-7.8); NEUTROPHILS % (AUTO) 24 % (42-75); WHITE BLOOD COUNT 25.5 10^3/uL (4.3-11.0)
[2023-03-10 06:32] LABS: PLATELET COUNT 10 10^3/uL (130-400)
[2023-03-10 06:48] LABS: POTASSIUM 3.8 MMOL/L (3.6-5.0)
[2023-03-10 06:49] LABS: CALCIUM 8.5 MG/DL (8.5-10.1)
[2023-03-10 06:53] LABS: CREATININE SERUM 0.94 MG/DL (0.60-1.30)
[2023-03-10] MEDS: DOCUSATE SODIUM 100 MG CAPSULE PO SCH ×2 (07:51→20:06)
[2023-03-10] MEDS: SENNA W/DOCUSATE TABLET PO SCH ×2 (07:52→20:06)
[2023-03-10] MEDS: meTOprolol TARTRATE (IR) 25 MG TABLET PO SCH ×2 (07:52→20:39)
[2023-03-10] MEDS: OXYBUTYNIN 5 MG TABLET PO SCH ×3 (07:52→20:39)
[2023-03-10] MEDS: PANTOPRAZOLE 20 MG TABLET PO SCH (07:52)
[2023-03-10] MEDS: ACYCLOVIR 400 MG CAPSULE/TABLET PO SCH ×2 (07:52→20:39)
[2023-03-10] MEDS: HYPOCHLOROUS ACID/NaCl WOUND SOLN 250 ML IR PRN (07:55)
[2023-03-10] MEDS: MICONAZOLE 2% POWDER 90 GM TOP SCH ×2 (07:55→20:42)
[2023-03-10 08:30] VITALS: BP 136/81
--- NOTE | 2023-03-10 10:00 | Physical Therapy Daily Note ---
PT Daily Note-Current Subjective Pt found seated in recliner upon entry. Agreed to PT. Reports that he is feeling very fatigued today and does not think he can walk very far. PT/OT co-treatment ([id number]) for safety. PT focus on gait, transfers, LE strength. OT focus on UE strength and ADLs. Pain Section J - Health Conditions 1. Rarely or not at all 2. Occasionally 3. Frequently 4. Almost constantly 8. Unable to answer Pain Effect on Sleep: 1 Pain Interference with Therapy: 1 Pain Interference w/Day-to-Day: 1 Mental Status Patient Orientation: Person, Place Transfers SCALE: Activities may be completed with or without assistive devices. 1-Lbleshwsqn-cefqpec completes the activity by him/herself with no assistance from a helper. 5-Set-up or Clean-up Assistance-helper sets up or cleans up; patient completes activity. [place] assists only prior to or following the activity. 4-Supervision or Touching Assistance-helper provides verbal cues and/or to uching/steadying and/or contact guard assistance as patient completes activity. Assistance may be provided throughout the activity or intermittently. 3-Partial/Moderate Assistance-helper does LESS THAN HALF the effort. [place] lifts, holds or supports trunk or limbs, but provides less than half the effort. 2-Substantial/Maximal Assistance-helper does MORE THAN HALF the effort. [place] lifts or holds trunk or limbs and provides more than half the effort. 0-Dbkdhjnsp-tolbup does ALL the effort. Patient does none of the effort to complete the activity. Or, the assistance of 2 or more helpers is required for the patient to complete the activity. If activity was not attempted, code reason: 7-Patient Refused. 9-Not Applicable-not attempted and the patient did not perform the activity before the current illness, exacerbation or injury. 10-Not Attempted due to Environmental Limitations-(lack of equipment, weather restraints, etc.). 88-Not Attempted due to Medical Conditions or Safety Concerns. Sit to Stand (QC): 4 Weight Bearing Right Lower Extremity: Right Full Weight Bearing Left Lower Extremity: Left Full Weight Bearing Gait Training Does the Patient Walk?: Yes Distance: 5, 20, 70, 60 Walk 10 feet (QC): 4 Walk 50 ft with 2 Turns(QC): 4 Gait Assistive Device: FWW Treatments Standing UE exercises: - See OT note Assessment Current Status: Good Progress Pt displays decent tolerance to all therapeutic interventions but does demonstrated increased fatigue. Pt able to ambulate up to 70 feet /c use of FWW before requiring a seated rest break. Demonstrates slow gait pattern and forward flexed trunk during ambulation. No loss of balance demonstrated. Pt performed standing OT led UE exercises in parallel bars. Required verbal cues for correct standing posture and occasional seated rest breaks. Pt left /c wheelchair /c OT post-treatment. Continue to progress pt per POC. PT Plasterer Helper Goals Residential Goals PT Residential Goals Time Frame: Mar 15, 2023 Roll Left & Right (QC): 6 (Pt will be Mod I with all aspects of functional mobility to be able to safely return home with spouse. ) Sit to Lying (QC): 6 (Pt will be Mod I with all aspects of functional mobility to be able to safely return home with spouse. ) Lying-Sitting on Side/Bed(QC): 6 (Pt will be Mod I with all aspects of functional mobility to be able to safely return home with spouse. ) Sit to Stand (QC): 6 (Pt will be Mod I with all aspects of functional mobility to be able to safely return home with spouse. ) Chair/Pac-fh-Firin Xfer(QC): 6 (Pt will be Mod I with all aspects of functional mobility to be able to safely return home with spouse. ) Toilet Transfer (QC): 6 (Pt will be Mod I with all aspects of functional mobility to be able to safely return home with spouse. ) Car Transfer (QC): 6 (Pt will be Mod I with all aspects of functional mobility to be able to safely return home with spouse. ) Does the Patient Walk: Yes Walk 10 feet (QC): 6 (Pt will be Mod I with all aspects of functional mobility to be able to safely return home with spouse. ) Walk 50ft with 2 Turns (QC): 6 (Pt will be Mod I with all aspects of functional mobility to be able to safely return home with spouse. ) Walk 150 ft (QC): 6 (Pt will be Mod I with all aspects of functional mobility to be able to safely return home with spouse. ) Walking 10ft on Uneven Surface: 6 (Pt will be Mod I with all aspects of functional mobility to be able to safely return home with spouse. ) 1 Step (curb) (QC): 6 (Pt will be Mod I with all aspects of functional mobility to be able to safely return home with spouse. ) 4 Steps (QC): 6 (Pt will be Mod I with all aspects of functional mobility to be able to safely return home with spouse. ) 12 Steps (QC): 6 (Pt will be Mod I with all aspects of functional mobility to be able to safely return home with spouse. ) Picking up an Object (QC): 6 (Pt will be Mod I with all aspects of functional mobility to be able to safely return home with spouse. With police communications dispatcher ) Does the Pt use WC or Scooter?: Yes Wheel 50 feet with 2 turns (QC: 6 (Pt will be Mod I with all aspects of functional mobility to be able to safely return home with spouse. ) Type: Manual Wheel 150 feet: 6 (Pt will be Mod I with all aspects of functional mobility to be able to safely return home with spouse. ) Type: Manual PT Plan Treatment/Plan Treatment Plan: Continue Plan of Care Treatment Plan: Bed Mobility, Education, Functional Activity Dianne, Functional Strength, Group Therapy, Gait, Safety, Therapeutic Exercise, Transfers Treatment Duration: Mar 15, 2023 Frequency: At least 5 of 7 days/Wk (IRF) Estimated Hrs Per Day: 1.5 hours per day Patient and/or Family Agrees t: Yes Time Time In: 899 Time Out: 999 DATE: Mar 10, 2023 Total Billed Treatment Time: 60 Total Billed Treatment 1 visit GT x 2 EX x 1 FA x 1 Individual treatment time: 5086-9099 Co-treatment time: 9698-9064 Total treatment time: 3637-1744 [facility] [place] PTA Mar 10, 2023 10:00
[2023-03-10] MEDS: LevoFLOXacin 750 MG TABLET PO SCH (11:08)
--- NOTE | 2023-03-10 11:45 | Occupational Ther Daily Note ---
OT Current Status-Daily Note Subjective Pt alert, sitting in w/c in therapy gym in PTs care. Pt agrees to therapy. Pt c/o of fatigue but no pain. PT/OT cotreat ([id number]), skills of 2 clinicians required during tx to decrease fall risk, increase functional mobility, and increase awareness for functional tasks. PT focus on static standing balance, a ctivity tolerance, and B LE weightbearing/strengthening. OT focus on activity tolerance, B UE weightbearing/strengthening, and B UE AROM. Mental Status/Objective Patient Orientation: Person, Place, Time, Situation ADL-Treatment Therapy Code Descriptions/Definitions Functional [place] Measure: 0=Not Assessed/NA 4=Minimal Assistance 1=Total Assistance 5=Supervision or Setup 2=Maximal Assistance 6=Modified [place] 3=Moderate Assistance 7=Complete IndependenceSCALE: Activities may be completed with or without assistive devices. 4-Yolguriznh-mdpzdom completes the activity by him/herself with no assistance from a helper. 5-Set-up or Clean-up Assistance-helper sets up or cleans up; patient completes activity. [place] assists only prior to or following the activity. 4-Supervision or Touching Assistance-helper provides verbal cues and/or touching/steadying and/or contact guard assistance as patient completes activity. Assistance may be provided throughout the activity or intermittently. 3-Partial/Moderate Assistance-helper does LESS THAN HALF the effort. [place] lifts, holds or supports trunk or limbs, but provides less than half the effort. 2-Substantial/Maximal Assistance-helper does MORE THAN HALF the effort. [place] lifts or holds trunk or limbs and provides more than half the effort. 5-Orzjfkbky-ythnhh does ALL the effort. Patient does none of the effort to complete the activity. Or, the assistance of 2 or more helpers is required for the patient to complete the activity. If activity was not attempted, code reason: 7-Patient Refused. 9-Not Applicable-not attempted and the patient did not perform the activity before the current illness, exacerbation or injury. 10-Not Attempted due to Environmental Limitations-(lack of equipment, weather restraints, etc.). 88-Not Attempted due to Medical Conditions or Safety Concerns. Bathing Location: L Arm, R Arm, L Upper Leg, R Upper Leg, L Lower Leg (including foot), R Lower Leg (including foot), Chest, Abdomen, Buttocks, Perineal Area Shower/Bathe Self (QC): 4 (CGA while standing for safety while pt cleaned buttocks and filipe area. Pt able to wash all areas sitting in recliner for sponge bath. ) Upper Body Dressing (QC): 5 (Placed clothes on FWW for set up. Pt able to don/doff shirt with resting breaks. ) Lower Body Dressing (QC): 4 (Pt able to thread underwear and pants around feet and pull up to knees. CGA for safety while standing while pt hike pants over hips.) Toileting Hygiene (QC): 3 (Pt required assistance to clean buttocks after BM due to extreme fatigue. Pt stabilized with grab bars in standing.) Toilet Transfer (QC): 4 (CGA for safety, used grab bars and FWW for support.) Pt had socks on and did not want to remove them to change into new ones. Pt required lengthy rest breaks during ADLs, especially after sit-> stand and transfers. Other Treatment During OT/PT cotreat, pt in // bars completed 1 set of 4 B UE exercises with 2# weights while standing. PT focus on B LE weightbearing and activity tolerance for functional tasks. OT working on B UE strengthening, AROM, and activity tolerance for functional tasks. Pt required frequent resting breaks due to fatigue. After cotreat, pt propelled from therapy gym to room in w/c with lengthy rest breaks. Pt working on w/c mobility, energy conservation, and B UE strengthening for functional tasks. Pt then completed ADLs while sitting in recliner. Ended session with pt in recliner with spouse present. Call light/phone in reach and all needs met in room. Education OT Patient Education: Correct positioning, Energy conservation, Modified ADL techniques, W/C management Teaching Recipient: Patient Teaching Methods: Demonstration, Discussion Response to Teaching: Verbalize Understanding, Return Demonstration OT Detention Goals Prekindergarten Teacher Goals Acute change in mental status: 0 Inattention: 2 Disorganized thinkin Altered level of consciousness: 0 Eating (QC): 6 Oral Hygiene (QC): 6 Toileting Hygiene (QC): 4 Shower/Bathe Self (QC): 5 Upper Body Dressing (QC): 6 Lower Body Dressing (QC): 4 On/Off Footwear (QC): 5 1=Demonstrate adherence to instructed precautions during ADL tasks. 2=Patient will verbalize/demonstrate understanding of assistive devices/modifications for ADL. 3=Patient will improve strength/tolerance for activity to enable patient to pe rform ADL's. OT Education/Plan Problem List/Assessment Assessment: Decreased Activ Tolerance, Decreased UE Strength, Impaired Self- Care Skills Discharge Recommendations Plan/Recommendations: Continue POC Treatment Plan/Plan of Care Patient would benefit from OT for education, treatment and training to promote independence in ADL's, mobility, safety and/or upper extremity function for ADL's. Plan of Care: ADL Retraining, Caregiver Training, Functional Mobility, Group Exercise/Act as Ind, UE Funct Exercise/Act Treatment Duration: Mar 22, 2023 Frequency: At least 5 of 7 days/Wk (IRF) Estimated Hrs Per Day: 1.5 hours per day Agreement: Yes Rehab Potential: Good Time Start Time: 09:30 Stop Time: 11:00 DATE: Mar 10, 2023 Total Time Billed (hr/min): 90 Billed Treatment Time 1 visit- EX 2 (30) ADL 4 (60), cotreat ([id number]), individual ([id number]) [place] Mar 10, 2023 11:45
--- NOTE | 2023-03-10 14:22 | Physical Therapy Daily Note ---
PT Daily Note-Current Subjective Pt found seated in recliner upon entry. Agreed to PT. No reports of pain throughout visit. Pain Section J - Health Conditions 1. Rarely or not at all 2. Occasionally 3. Frequently 4. Almost constantly 8. Unable to answer Pain Effect on Sleep: 1 Pain Interference with Therapy: 1 Pain Interference w/Day-to-Day: 1 Mental Status Patient Orientation: Person, Place Transfers SCALE: Activities may be completed with or without assistive devices. 6-Gelbinxphx-tpbvgua completes the activity by him/herself with no assistance from a helper. 5-Set-up or Clean-up Assistance-helper sets up or cleans up; patient completes activity. [place] assists only prior to or following the activity. 4-Supervision or Touching Assistance-helper provides verbal cues and/or touching/steadying and/or contact guard assistance as patient completes activity. Assistance may be provided throughout the activity or intermittently. 3-Partial/Moderate Assistance-helper does LESS THAN HALF the effort. [place] lifts, holds or supports trunk or limbs, but provides less than half the effort. 2-Substantial/Maximal Assistance-helper does MORE THAN HALF the effort. [place] lifts or holds trunk or limbs and provides more than half the effort. 7-Oohlmhyir-dulsed does ALL the effort. Patient does none of the effort to complete the activity. Or, the assistance of 2 or more helpers is required for the patient to complete the activity. If activity was not attempted, code reason: 7-Patient Refused. 9-Not Applicable-not attempted and the patient did not perform the activity before the current illness, exacerbation or injury. 10-Not Attempted due to Environmental Limitations-(lack of equipment, weather restraints, etc.). 88-Not Attempted due to Medical Conditions or Safety Concerns. Sit to Stand (QC): 4 Chair/Eus-sl-Xptfd Xfer(QC): 4 Weight Bearing Right Lower Extremity: Right Full Weight Bearing Left Lower Extremity: Left Full Weight Bearing Gait Training Does the Patient Walk?: No and Walking Goal IS indicated Exercises NuStep Minutes: 10 NuStep Workload: 3 Assessment Current Status: Fair Progress Pt performs chair to chair transfer 4x through treatment /c CGA for safety due to balance deficits. Sit to stand transfer also performed /c CGA for safety due to strength deficits. Completes 10 minutes on nu step before demonstration signs of increased fatigue and shortness of breath. Pt left in recliner /c family present, call light in place, and all needs met post-treatment. Continue to progress pt per POC. PT Bus And Trolley Inspecting Dispatcher Goals Bus And Trolley Inspecting Dispatcher Goals PT Bus And Trolley Inspecting Dispatcher Goals Time Frame: Mar 15, 2023 Roll Left & Right (QC): 6 (Pt will be Mod I with all aspects of functional mobility to be able to safely return home with spouse. ) Sit to Lying (QC): 6 (Pt will be Mod I with all aspects of functional mobility to be able to safely return home with spouse. ) Lying-Sitting on Side/Bed(QC): 6 (Pt will be Mod I with all aspects of functional mobility to be able to safely return home with spouse. ) Sit to Stand (QC): 6 (Pt will be Mod I with all aspects of functional mobility to be able to safely return home with spouse. ) Chair/Okg-pz-Axuhr Xfer(QC): 6 (Pt will be Mod I with all aspects of functional mobility to be able to safely return home with spouse. ) Toilet Transfer (QC): 6 (Pt will be Mod I with all aspects of functional mobility to be able to safely return home with spouse. ) Car Transfer (QC): 6 (Pt will be Mod I with all aspects of functional mobility to be able to safely return home with spouse. ) Does the Patient Walk: Yes Walk 10 feet (QC): 6 (Pt will be Mod I with all aspects of functional mobility to be able to safely return home with spouse. ) Walk 50ft with 2 Turns (QC): 6 (Pt will be Mod I with all aspects of functional mobility to be able to safely return home with spouse. ) Walk 150 ft (QC): 6 (Pt will be Mod I with all aspects of functional mobility to be able to safely return home with spouse. ) Walking 10ft on Uneven Surface: 6 (Pt will be Mod I with all aspects of functional mobility to be able to safely return home with spouse. ) 1 Step (curb) (QC): 6 (Pt will be Mod I with all aspects of functional mobility to be able to safely return home with spouse. ) 4 Steps (QC): 6 (Pt will be Mod I with all aspects of functional mobility to be able to safely return home with spouse. ) 12 Steps (QC): 6 (Pt will be Mod I with all aspects of functional mobility to be able to safely return home with spouse. ) Picking up an Object (QC): 6 (Pt will be Mod I with all aspects of functional mobility to be able to safely return home with spouse. With chief pilot ) Does the Pt use WC or Scooter?: Yes Wheel 50 feet with 2 turns (QC: 6 (Pt will be Mod I with all aspects of functional mobility to be able to safely return home with spouse. ) Type: Manual Wheel 150 feet: 6 (Pt will be Mod I with all aspects of functional mobility to be able to safely return home with spouse. ) Type: Manual PT Plan Treatment/Plan Treatment Plan: Continue Plan of Care Treatment Plan: Bed Mobility, Education, Functional Activity Dianne, Functional Strength, Group Therapy, Gait, Safety, Therapeutic Exercise, Transfers Treatment Duration: Mar 15, 2023 Frequency: At least 5 of 7 days/Wk (IRF) Estimated Hrs Per Day: 1.5 hours per day Patient and/or Family Agrees t: Yes Time Time In: 1330 Time Out: 1400 DATE: Mar 10, 2023 Total Billed Treatment Time: 30 Total Billed Treatment 1 visit FA x 1 EX x 1 [place] Mar 10, 2023 14:22
[2023-03-10] MEDS: NS IV 500 ML 500 ML IV SCH (16:18)
[2023-03-10] MEDS: TAMSULOSIN 0.4 MG (FLOMAX) CAP PO SCH (17:34)
[2023-03-10] MEDS: FINASTERIDE 5 MG TABLET PO SCH (17:34)
[2023-03-10 20:15] VITALS: BP 179/75
[2023-03-10 21:58] VITALS: BP 146/68
[2023-03-11] MEDS: THERAPEUTIC MULTIVITAMIN W/MINERALS TABLET PO SCH (06:28)
[2023-03-11] MEDS: CATHETER FLUSH 10 ML SYR IVP SCH ×3 (06:28→20:40)
[2023-03-11] MEDS: NS IV 500 ML 500 ML IV SCH ×2 (07:51→19:41)
[2023-03-11] MEDS: ACYCLOVIR 400 MG CAPSULE/TABLET PO SCH ×2 (08:08→20:37)
[2023-03-11] MEDS: DOCUSATE SODIUM 100 MG CAPSULE PO SCH ×2 (08:08→20:39)
[2023-03-11] MEDS: meTOprolol TARTRATE (IR) 25 MG TABLET PO SCH ×2 (08:08→20:37)
[2023-03-11] MEDS: OXYBUTYNIN 5 MG TABLET PO SCH ×3 (08:08→20:37)
[2023-03-11] MEDS: PANTOPRAZOLE 20 MG TABLET PO SCH (08:08)
[2023-03-11] MEDS: MICONAZOLE 2% POWDER 90 GM TOP SCH ×2 (08:09→20:39)
[2023-03-11] MEDS: SENNA W/DOCUSATE TABLET PO SCH ×2 (08:09→20:39)
[2023-03-11] MEDS: HYPOCHLOROUS ACID/NaCl WOUND SOLN 250 ML IR PRN (08:10)
[2023-03-11 08:19] VITALS: BP 129/72
--- NOTE | 2023-03-11 10:05 | PM&R Progress Note ---
Subjective HPI/CC On Admission Date Seen by Provider: Mar 11, 2023 Time Seen by Provider: 10:00 Subjective/Events-last exam 03/11/2023: Doing well No pain Tired he reports Labs monitored by Dr Neri 03/10/2023: Patient seems to be doing better No major concerns Reviewed meds and labs No major concerns 03/09/2023: No major issues Transfusion maintained NO falls Improved strength Dr Neri met with about prognosis with the patient in the discussion Prognosis guarded 03/08/2023: Patient doing much better No falls Receiving platelet infusion Much more alert today 03/07/2023: No major issues No pain reported BM+ Labs reviewed 03/06/2023: Much improved Slow recovery Labs reviewed No falls BM+ 03/05/2023: Patient doing really well Slow recovery but moving better at bedside Platelet count 16,000 so much improved We will monitor closely 03/04/2023: No major issues Platelets ordered by Dr Neri No pain Slow recovery 03/03/2023: Patient doing much better Slow recovery Dr. Anderson will be consulted and he will manage the transfusion requirement 03/02/2023: Patient still very weak Giving 1 unit of blood due to hemoglobin 7.8 Slow recovery Platelet count good Maintain on Levaquin we will check stop date soon Review of Systems General: Fatigue, Malaise Objective Exam Vital Signs Vital Signs Date Time Temp Pulse Resp B/P (MAP) Pulse Ox O2 Delivery O2 Flow Rate FiO2 03/11/23 11:46 36.7 79 20 159/72 93 Room Air Capillary Refill : General Appearance: No Apparent Distress, WD/WN, Chronically ill HEENT: PERRL/EOMI, Normal ENT Inspection, Pharynx Normal Neck: Full Range of Motion, Normal Inspection, Non Tender, Supple, Carotid Bruit Respiratory: Chest Non Tender, Lungs Clear, Normal Breath Sounds, No Accessory Muscle Use, No Respiratory Distress Cardiovascular: Regular Rate, Rhythm, No Edema, No Gallop, No JVD, No Murmur, Normal Peripheral Pulses Gastrointestinal: Normal Bowel Sounds, No Organomegaly, No Pulsatile Mass, Non Tender, Soft Back: Normal Inspection, No CVA Tenderness, No Vertebral Tenderness Extremity: Normal Capillary Refill, Normal Inspection, Normal Range of Motion, Non Tender, No Calf Tenderness, No Pedal Edema Neurologic/Psychiatric: Alert, Oriented x3, derrick builder II-XII Norm as Tested, Abnormal Gait, Depressed Affect, Motor Weakness (generalized) Skin: Normal Color, Warm/Dry Lymphatic: No Adenopathy Results/Procedures Lab Laboratory Tests 03/11/23 10:35 Patient resulted labs reviewed. FIM Transfers Therapy Code Descriptions/Definitions Functional [place] Measure: 0=Not Assessed/NA 4=Minimal Assistance 1=Total Assistance 5=Supervision or Setup 2=Maximal Assistance 6=Modified [place] 3=Moderate Assistance 7=Complete IndependenceSCALE: Activities may be completed with or without assistive devices. 6-Cepnoofwzy-xqxwgvj completes the activity by him/herself with no assistance from a helper. 5-Set-up or Clean-up Assistance-helper sets up or cleans up; patient completes activity. [place] assists only prior to or following the activity. 4-Supervision or Touching Assistance-helper provides verbal cues and/or touching/steadying and/or contact guard assistance as patient completes activity. Assistance may be provided throughout the activity or intermittently. 3-Partial/Moderate Assistance-helper does LESS THAN HALF the effort. [place] lifts, holds or supports trunk or limbs, but provides less than half the effort. 2-Substantial/Maximal Assistance-helper does MORE THAN HALF the effort. [place] lifts or holds trunk or limbs and provides more than half the effort. 9-Uostqhxdh-lwvapd does ALL the effort. Patient does none of the effort to complete the activity. Or, the assistance of 2 or more helpers is required for the patient to complete the activity. If activity was not attempted, code reason: 7-Patient Refused. 9-Not Applicable-not attempted and the patient did not perform the activity before the current illness, exacerbation or injury. 10-Not Attempted due to Environmental Limitations-(lack of equipment, weather restraints, etc.). 88-Not Attempted due to Medical Conditions or Safety Concerns. Roll Left to Right (QC): 4 Sit to Lying (QC): 4 Sit to Stand (QC): 4 Chair/Kfr-xv-Vbabt Xfer(QC): 4 Car Transfer (QC): 4 Gait Training Does the Patient Walk?: No and Walking Goal IS indicated Distance: 5, 20, 70, 60 Walk 10 feet (QC): 4 Walk 50 ft with 2 Turns(QC): 4 Walk 150 ft (QC): 88 Walking 10ft/uneven surface-QC: 88 Gait Assistive Device: FWW Wheelchair Training Does the Pt Use a Wheelchair?: Yes Distance: 50ft Wheel 50 ft with 2 turns (QC): 5 Wheel 150 ft (QC): 5 Type of Wheelchair: Manual Stair Training Stair Training: Handrails/: 1 handrail #of Steps: 2 1 Step (curb) (QC): 3 4 Steps (QC): 3 12 Steps (QC): 88 (Pt unable to walk more than 15ft with the FWW, or negotiate stairs, due to poor core and hip strength. ) Stairs: Pattern: Step to Balance Picking up an Object (QC): 3 (Min A with clinic nurse ) ADL-Treatment Eating (QC): 5 (set-up A to open packages) Oral Hygiene (QC): 6 (Pt (I) with oral care seated at sink in WC with pt cleaning dentures.) Bathing Location: L Arm, R Arm, L Upper Leg, R Upper Leg, L Lower Leg (including foot), R Lower Leg (including foot), Chest, Abdomen, Buttocks, Perineal Area Shower/Bathe Self (QC): 4 (CGA while standing for safety while pt cleaned buttocks and filipe area. Pt able to wash all areas sitting in recliner for sponge bath. ) Upper Body Dressing (QC): 5 (Placed clothes on FWW for set up. Pt able to don/doff shirt with resting breaks. ) Lower Body Dressing (QC): 4 (Pt able to thread underwear and pants around feet and pull up to knees. CGA for safety while standing while pt hike pants over hips.) On/Off Footwear (QC): 3 (Partial/mod A for donning/doffing footwear; pt utilizing dressing stick to doff socks seated in WC with SBA; pt too fatigued to don sock seated in WC which required therapist to jennie (B) socks with total A) Toileting Hygiene (QC): 3 (Pt required assistance to clean buttocks after BM due to extreme fatigue. 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 Anderson 03/04/2023: Transfused platelets 03/05/2023: Supportive care Slow recovery 03/06/2023: Monitor hgb and platelets 03/07/2023: Monitor closely Fall risk 03/08/2023: Transfuse as necessary Supportive care 03/09/2023: Monitor pain 03/10/2023: Supportive care Monitor closely 03/11/2023: Monitor closely Pain managed (1) Myopathy (2) Acute myelogenous leukemia Status: Acute (3) Atrial fibrillation Status: Chronic (4) CAD (coronary artery disease) (5) HTN (hypertension) Status: Chronic (6) BPH (benign prostatic hyperplasia) Status: Chronic JANEY NAQVI DO Mar 11, 2023 10:05
[2023-03-11 10:42] LABS: MEAN CORPUSCULAR VOLUME 96 fL (80-99)
[2023-03-11 10:44] LABS: BASOPHILS % (AUTO) 0 % (0-10); EOSINOPHILS # (AUTO) 1.5 10^3/uL (0.0-0.3); EOSINOPHILS % (AUTO) 6 % (0-10); HEMATOCRIT 24 % (40-54); LYMPHOCYTES # (AUTO) 5.3 10^3/uL (1.0-4.0); LYMPHOCYTES % (AUTO) 20 % (12-44); MEAN CORPUSCULAR HEMOGLOBIN 32 pg (25-34); MEAN CORPUSCULAR HGB CONC 34 g/dL (32-36); MONOCYTES # (AUTO) 11.9 10^3/uL (0.0-1.0); MONOCYTES % (AUTO) 44 % (0-12); NEUTROPHILS # (AUTO) 6.1 10^3/uL (1.8-7.8); NEUTROPHILS % (AUTO) 23 % (42-75); WHITE BLOOD COUNT 26.9 10^3/uL (4.3-11.0)
[2023-03-11 10:46] LABS: PLATELET COUNT 6 10^3/uL (130-400)
[2023-03-11 11:46] VITALS: BP 159/72
[2023-03-11] MEDS: LevoFLOXacin 750 MG TABLET PO SCH (11:53)
[2023-03-11 12:06] VITALS: BP 148/70
[2023-03-11 14:44] VITALS: BP 168/77
[2023-03-11] MEDS: FINASTERIDE 5 MG TABLET PO SCH (17:08)
[2023-03-11] MEDS: TAMSULOSIN 0.4 MG (FLOMAX) CAP PO SCH (17:08)
[2023-03-11 19:11] VITALS: BP 152/79
[2023-03-12] MEDS: THERAPEUTIC MULTIVITAMIN W/MINERALS TABLET PO SCH (06:17)
[2023-03-12] MEDS: CATHETER FLUSH 10 ML SYR IVP SCH ×3 (06:18→20:18)
[2023-03-12] MEDS: meTOprolol TARTRATE (IR) 25 MG TABLET PO SCH ×2 (08:10→20:17)
[2023-03-12] MEDS: PANTOPRAZOLE 20 MG TABLET PO SCH (08:10)
[2023-03-12] MEDS: ACYCLOVIR 400 MG CAPSULE/TABLET PO SCH ×2 (08:10→20:17)
[2023-03-12] MEDS: OXYBUTYNIN 5 MG TABLET PO SCH ×3 (08:10→20:17)
[2023-03-12] MEDS: DOCUSATE SODIUM 100 MG CAPSULE PO SCH ×2 (08:11→20:17)
[2023-03-12] MEDS: SENNA W/DOCUSATE TABLET PO SCH ×2 (08:11→20:17)
[2023-03-12 08:12] VITALS: BP 118/84
[2023-03-12] MEDS: HYPOCHLOROUS ACID/NaCl WOUND SOLN 250 ML IR PRN (08:12)
[2023-03-12] MEDS: MICONAZOLE 2% POWDER 90 GM TOP SCH ×2 (08:12→20:17)
--- NOTE | 2023-03-12 09:41 | PM&R Progress Note ---
Subjective HPI/CC On Admission Date Seen by Provider: Mar 12, 2023 Time Seen by Provider: 16:00 Subjective/Events-last exam 03/12/2023: Patient doing better Still fatigued Reviewed meds and labs 03/11/2023: Doing well No pain Tired he reports Labs monitored by Dr Neri 03/10/2023: Patient seems to be doing better No major concerns Reviewed meds and labs No major concerns 03/09/2023: No major issues Transfusion maintained NO falls Improved strength Dr Neri met with about prognosis with the patient in the discussion Prognosis guarded 03/08/2023: Patient doing much better No falls Receiving platelet infusion Much more alert today 03/07/2023: No major issues No pain reported BM+ Labs reviewed 03/06/2023: Much improved Slow recovery Labs reviewed No falls BM+ 03/05/2023: Patient doing really well Slow recovery but moving better at bedside Platelet count 16,000 so much improved We will monitor closely 03/04/2023: No major issues Platelets ordered by Dr Neri No pain Slow recovery 03/03/2023: Patient doing much better Slow recovery Dr. Anderson will be consulted and he will manage the transfusion requirement 03/02/2023: Patient still very weak Giving 1 unit of blood due to hemoglobin 7.8 Slow recovery Platelet count good Maintain on Levaquin we will check stop date soon Review of Systems General: Fatigue, Malaise Objective Exam Vital Signs Vital Signs Date Time Temp Pulse Resp B/P (MAP) Pulse Ox O2 Delivery O2 Flow Rate FiO2 03/12/23 20:20 Room Air 03/12/23 19:43 36.8 91 20 169/76 (107) 93 Capillary Refill : General Appearance: No Apparent Distress, WD/WN, Chronically ill HEENT: PERRL/EOMI, Normal ENT Inspection, Pharynx Normal Neck: Full Range of Motion, Normal Inspection, Non Tender, Supple, Carotid Bruit Respiratory: Chest Non Tender, Lungs Clear, Normal Breath Sounds, No Accessory Muscle Use, No Respiratory Distress Cardiovascular: Regular Rate, Rhythm, No Edema, No Gallop, No JVD, No Murmur, Normal Peripheral Pulses Gastrointestinal: Normal Bowel Sounds, No Organomegaly, No Pulsatile Mass, Non Tender, Soft Back: Normal Inspection, No CVA Tenderness, No Vertebral Tenderness Extremity: Normal Capillary Refill, Normal Inspection, Normal Range of Motion, Non Tender, No Calf Tenderness, No Pedal Edema Neurologic/Psychiatric: Alert, Oriented x3, 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 FIM Transfers Therapy Code Descriptions/Definitions Functional [place] Measure: 0=Not Assessed/NA 4=Minimal Assistance 1=Total Assistance 5=Supervision or Setup 2=Maximal Assistance 6=Modified [place] 3=Moderate Assistance 7=Complete IndependenceSCALE: Activities may be completed with or without assistive devices. 1-Ugrudzqqtc-uuuoblh completes the activity by him/herself with no assistance from a helper. 5-Set-up or Clean-up Assistance-helper sets up or cleans up; patient completes activity. [place] assists only prior to or following the activity. 4-Supervision or Touching Assistance-helper provides verbal cues and/or touching/steadying and/or contact guard assistance as patient completes activity. Assistance may be provided throughout the activity or intermittently. 3-Partial/Moderate Assistance-helper does LESS THAN HALF the effort. [place] lifts, holds or supports trunk or limbs, but provides less than half the effort. 2-Substantial/Maximal Assistance-helper does MORE THAN HALF the effort. [place] lifts or holds trunk or limbs and provides more than half the effort. 7-Rotnwtbtd-lerayc does ALL the effort. Patient does none of the effort to complete the activity. Or, the assistance of 2 or more helpers is required for the patient to complete the activity. If activity was not attempted, code reason: 7-Patient Refused. 9-Not Applicable-not attempted and the patient did not perform the activity before the current illness, exacerbation or injury. 10-Not Attempted due to Environmental Limitations-(lack of equipment, weather restraints, etc.). 88-Not Attempted due to Medical Conditions or Safety Concerns. Roll Left to Right (QC): 4 Sit to Lying (QC): 4 Sit to Stand (QC): 4 Chair/Ajg-vq-Ahnad Xfer(QC): 4 Car Transfer (QC): 4 Gait Training Does the Patient Walk?: No and Walking Goal IS indicated Distance: 5, 20, 70, 60 Walk 10 feet (QC): 4 Walk 50 ft with 2 Turns(QC): 4 Walk 150 ft (QC): 88 Walking 10ft/uneven surface-QC: 88 Gait Assistive Device: FWW Wheelchair Training Does the Pt Use a Wheelchair?: Yes Distance: 50ft Wheel 50 ft with 2 turns (QC): 5 Wheel 150 ft (QC): 5 Type of Wheelchair: Manual Stair Training Stair Training: Handrails/: 1 handrail #of Steps: 2 1 Step (curb) (QC): 3 4 Steps (QC): 3 12 Steps (QC): 88 (Pt unable to walk more than 15ft with the FWW, or negotiate stairs, due to poor core and hip strength. ) Stairs: Pattern: Step to Balance Picking up an Object (QC): 3 (Min A with professor of law ) ADL-Treatment Eating (QC): 5 (set-up A to open packages) Oral Hygiene (QC): 6 (Pt (I) with oral care seated at sink in WC with pt cleaning dentures.) Bathing Location: L Arm, R Arm, L Upper Leg, R Upper Leg, L Lower Leg (including foot), R Lower Leg (including foot), Chest, Abdomen, Buttocks, Perineal Area Shower/Bathe Self (QC): 4 (CGA while standing for safety while pt cleaned buttocks and filipe area. Pt able to wash all areas sitting in recliner for sponge bath. ) Upper Body Dressing (QC): 5 (Placed clothes on FWW for set up. Pt able to don/doff shirt with resting breaks. ) Lower Body Dressing (QC): 4 (Pt able to thread underwear and pants around feet and pull up to knees. CGA for safety while standing while pt hike pants over hips.) On/Off Footwear (QC): 3 (Partial/mod A for donning/doffing footwear; pt utilizing dressing stick to doff socks seated in WC with SBA; pt too fatigued to don sock seated in WC which required therapist to jennie (B) socks with total A) Toileting Hygiene (QC): 3 (Pt required assistance to clean buttocks after BM due to extreme fatigue. 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 Anderson 03/04/2023: Transfused platelets 03/05/2023: Supportive care Slow recovery 03/06/2023: Monitor hgb and platelets 03/07/2023: Monitor closely Fall risk 03/08/2023: Transfuse as necessary Supportive care 03/09/2023: Monitor pain 03/10/2023: Supportive care Monitor closely 03/11/2023: Monitor closely Pain managed 03/12/2023: Monitor closely Could look at hospice at discharge? (1) Myopathy (2) Acute myelogenous leukemia Status: Acute (3) Atrial fibrillation Status: Chronic (4) CAD (coronary artery disease) (5) HTN (hypertension) Status: Chronic (6) BPH (benign prostatic hyperplasia) Status: Chronic JANEY NAQVI DO Mar 12, 2023 09:41
[2023-03-12] MEDS: LevoFLOXacin 750 MG TABLET PO SCH (10:47)
[2023-03-12] MEDS: NS IV 500 ML 500 ML IV SCH (16:53)
[2023-03-12] MEDS: TAMSULOSIN 0.4 MG (FLOMAX) CAP PO SCH (17:10)
[2023-03-12] MEDS: FINASTERIDE 5 MG TABLET PO SCH (17:11)
[2023-03-12 19:43] VITALS: BP 169/76
[2023-03-13] VITALS (7 sets, daily range): BP systolic 126–158; BP diastolic 70–79
--- NOTE | 2023-03-13 04:47 | PM&R Progress Note ---
Subjective HPI/CC On Admission Date Seen by Provider: Mar 13, 2023 Time Seen by Provider: 11:00 Subjective/Events-last exam 03/13/2023: Patient about the same Talking about his chances of survival Family at the bedside Awaiting swing bed possibility Patient appears to be weaker and transfusion and platelet transfusion dependent 03/12/2023: Patient doing better Still fatigued Reviewed meds and labs 03/11/2023: Doing well No pain Tired he reports Labs monitored by Dr Neri 03/10/2023: Patient seems to be doing better No major concerns Reviewed meds and labs No major concerns 03/09/2023: No major issues Transfusion maintained NO falls Improved strength Dr Neri met with about prognosis with the patient in the discussion Prognosis guarded 03/08/2023: Patient doing much better No falls Receiving platelet infusion Much more alert today 03/07/2023: No major issues No pain reported BM+ Labs reviewed 03/06/2023: Much improved Slow recovery Labs reviewed No falls BM+ 03/05/2023: Patient doing really well Slow recovery but moving better at bedside Platelet count 16,000 so much improved We will monitor closely 03/04/2023: No major issues Platelets ordered by Dr Neri No pain Slow recovery 03/03/2023: Patient doing much better Slow recovery Dr. Anderson will be consulted and he will manage the transfusion requirement 03/02/2023: Patient still very weak Giving 1 unit of blood due to hemoglobin 7.8 Slow recovery Platelet count good Maintain on Levaquin we will check stop date soon Review of Systems General: Fatigue, Malaise Objective Exam Vital Signs Vital Signs Date Time Temp Pulse Resp B/P (MAP) Pulse Ox O2 Delivery O2 Flow Rate FiO2 03/13/23 11:30 36.3 77 18 158/70 (99) 95 Room Air Capillary Refill : General Appearance: No Apparent Distress, WD/WN, Chronically ill HEENT: PERRL/EOMI, Normal ENT Inspection, Pharynx Normal Neck: Full Range of Motion, Normal Inspection, Non Tender, Supple, Carotid Bruit Respiratory: Chest Non Tender, Lungs Clear, Normal Breath Sounds, No Accessory Muscle Use, No Respiratory Distress Cardiovascular: Regular Rate, Rhythm, No Edema, No Gallop, No JVD, No Murmur, Normal Peripheral Pulses Gastrointestinal: Normal Bowel Sounds, No Organomegaly, No Pulsatile Mass, Non Tender, Soft Back: Normal Inspection, No CVA Tenderness, No Vertebral Tenderness Extremity: Normal Capillary Refill, Normal Inspection, Normal Range of Motion, Non Tender, No Calf Tenderness, No Pedal Edema Neurologic/Psychiatric: Alert, Oriented x3, director private II-XII Norm as Tested, Abnormal Gait, Depressed Affect, Motor Weakness (generalized) Skin: Normal Color, Warm/Dry Lymphatic: No Adenopathy Results/Procedures Lab Laboratory Tests 03/13/23 05:40 Patient resulted labs reviewed. FIM Transfers Therapy Code Descriptions/Definitions Functional [place] Measure: 0=Not Assessed/NA 4=Minimal Assistance 1=Total Assistance 5=Supervision or Setup 2=Maximal Assistance 6=Modified [place] 3=Moderate Assistance 7=Complete IndependenceSCALE: Activities may be completed with or without assistive devices. 2-Kbmzkyjsyx-mzlklkg completes the activity by him/herself with no assistance from a helper. 5-Set-up or Clean-up Assistance-helper sets up or cleans up; patient completes activity. [place] assists only prior to or following the activity. 4-Supervision or Touching Assistance-helper provides verbal cues and/or touching/steadying and/or contact guard assistance as patient completes activity. Assistance may be provided throughout the activity or intermittently. 3-Partial/Moderate Assistance-helper does LESS THAN HALF the effort. [place] lift s, holds or supports trunk or limbs, but provides less than half the effort. 2-Substantial/Maximal Assistance-helper does MORE THAN HALF the effort. [place] lifts or holds trunk or limbs and provides more than half the effort. 8-Adpygzvpv-ulaowh does ALL the effort. Patient does none of the effort to complete the activity. Or, the assistance of 2 or more helpers is required for the patient to complete the activity. If activity was not attempted, code reason: 7-Patient Refused. 9-Not Applicable-not attempted and the patient did not perform the activity before the current illness, exacerbation or injury. 10-Not Attempted due to Environmental Limitations-(lack of equipment, weather restraints, etc.). 88-Not Attempted due to Medical Conditions or Safety Concerns. Roll Left to Right (QC): 4 Sit to Lying (QC): 4 Sit to Stand (QC): 4 Chair/Rbz-vg-Tagpx Xfer(QC): 4 Car Transfer (QC): 4 Gait Training Does the Patient Walk?: No and Walking Goal IS indicated Distance: 5, 20, 70, 60 Walk 10 feet (QC): 4 Walk 50 ft with 2 Turns(QC): 4 Walk 150 ft (QC): 88 Walking 10ft/uneven surface-QC: 88 Gait Assistive Device: FWW Wheelchair Training Does the Pt Use a Wheelchair?: Yes Distance: 50ft Wheel 50 ft with 2 turns (QC): 5 Wheel 150 ft (QC): 5 Type of Wheelchair: Manual Stair Training Stair Training: Handrails/: 1 handrail #of Steps: 2 1 Step (curb) (QC): 3 4 Steps (QC): 3 12 Steps (QC): 88 (Pt unable to walk more than 15ft with the FWW, or negotiate stairs, due to poor core and hip strength. ) Stairs: Pattern: Step to Balance Picking up an Object (QC): 3 (Min A with special collections librarian ) ADL-Treatment Eating (QC): 5 (set-up A to open packages) Oral Hygiene (QC): 6 (Pt (I) with oral care seated at sink in WC with pt cleaning dentures.) Bathing Location: L Arm, R Arm, L Upper Leg, R Upper Leg, L Lower Leg (including foot), R Lower Leg (including foot), Chest, Abdomen, Buttocks, Perineal Area Shower/Bathe Self (QC): 4 (CGA while standing for safety while pt cleaned buttocks and filipe area. Pt able to wash all areas sitting in recliner for sponge bath. ) Upper Body Dressing (QC): 5 (Placed clothes on FWW for set up. Pt able to don/doff shirt with resting breaks. ) Lower Body Dressing (QC): 4 (Pt able to thread underwear and pants around feet and pull up to knees. CGA for safety while standing while pt hike pants over hips.) On/Off Footwear (QC): 3 (Partial/mod A for donning/doffing footwear; pt utilizing dressing stick to doff socks seated in WC with SBA; pt too fatigued to don sock seated in WC which required therapist to jennie (B) socks with total A) Toileting Hygiene (QC): 3 (Pt required assistance to clean buttocks after BM due to extreme fatigue. 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 Anderson 03/04/2023: Transfused platelets 03/05/2023: Supportive care Slow recovery 03/06/2023: Monitor hgb and platelets 03/07/2023: Monitor closely Fall risk 03/08/2023: Transfuse as necessary Supportive care 03/09/2023: Monitor pain 03/10/2023: Supportive care Monitor closely 03/11/2023: Monitor closely Pain managed 03/12/2023: Monitor closely Could look at hospice at discharge? 03/13/2023: Not a swing bed candidate (1) Myopathy (2) Acute myelogenous leukemia Status: Acute (3) Atrial fibrillation Status: Chronic (4) CAD (coronary artery disease) (5) HTN (hypertension) Status: Chronic (6) BPH (benign prostatic hyperplasia) Status: Chronic JANEY NAQVI DO Mar 13, 2023 04:47
[2023-03-13] MEDS: THERAPEUTIC MULTIVITAMIN W/MINERALS TABLET PO SCH (05:31)
[2023-03-13] MEDS: CATHETER FLUSH 10 ML SYR IVP SCH ×3 (05:32→20:39)
[2023-03-13 05:48] LABS: BASOPHILS % (AUTO) 0 % (0-10); HEMOGLOBIN 7.8 g/dL (13.3-17.7); MEAN CORPUSCULAR VOLUME 96 fL (80-99)
[2023-03-13 05:50] LABS: EOSINOPHILS # (AUTO) 1.8 10^3/uL (0.0-0.3); EOSINOPHILS % (AUTO) 6 % (0-10); HEMATOCRIT 23 % (40-54); LYMPHOCYTES # (AUTO) 6.6 10^3/uL (1.0-4.0); LYMPHOCYTES % (AUTO) 23 % (12-44); MEAN CORPUSCULAR HEMOGLOBIN 32 pg (25-34); MEAN CORPUSCULAR HGB CONC 34 g/dL (32-36); MEAN PLATELET VOLUME 13.3 fL (9.0-12.2); MONOCYTES % (AUTO) 42 % (0-12); NEUTROPHILS # (AUTO) 6.3 10^3/uL (1.8-7.8); NEUTROPHILS % (AUTO) 22 % (42-75); WHITE BLOOD COUNT 28.5 10^3/uL (4.3-11.0)
[2023-03-13 05:54] LABS: PLATELET COUNT 5 10^3/uL (130-400)
[2023-03-13 06:13] LABS: CALCIUM 8.5 MG/DL (8.5-10.1); CREATININE SERUM 0.9 MG/DL (0.60-1.30); POTASSIUM 3.6 MMOL/L (3.6-5.0)
[2023-03-13 06:47] LABS: ANISOCYTOSIS SLIGHT; BAND NEUTROPHILS 3 %; BLAST CELLS 45 %; MONOCYTES % (MANUAL) 12 %; NEUTROPHILS % (MANUAL) 20 %
[2023-03-13 06:48] LABS: SPHEROCYTES SLIGHT
[2023-03-13 06:49] LABS: EOSINOPHILS % (MANUAL) 8 %; LYMPHOCYTES % (MANUAL) 12 %
--- NOTE | 2023-03-13 07:41 | Occupational Ther Daily Note ---
OT Current Status-Daily Note Subjective Pt dozing in bed upon arrival. Pt agrees to therapy, no c/o of pain but verbalized fatigue. Nrsg notified. came in towards end on tx session to speak with pt and pts family. Mental Status/Objective Patient Orientation: Person, Place, Time, Situation ADL-Treatment Therapy Code Descriptions/Definitions Functional [place] Measure: 0=Not Assessed/NA 4=Minimal Assistance 1=Total Assistance 5=Supervision or Setup 2=Maximal Assistance 6=Modified [place] 3=Moderate Assistance 7=Complete IndependenceSCALE: Activities may be completed with or without assistive devices. 0-Eawmmyawuq-nwuvrww completes the activity by him/herself with no assistance from a helper. 5-Set-up or Clean-up Assistance-helper sets up or cleans up; patient completes activity. [place] assists only prior to or following the activity. 4-Supervision or Touching Assistance-helper provides verbal cues and/or touching/steadying and/or contact guard assistance as patient completes activity. Assistance may be provided throughout the activity or intermittently. 3-Partial/Moderate Assistance-helper does LESS THAN HALF the effort. [place] lifts, holds or supports trunk or limbs, but provides less than half the effort. 2-Substantial/Maximal Assistance-helper does MORE THAN HALF the effort. [place] lifts or holds trunk or limbs and provides more than half the effort. 2-Mpazrfwrj-lmghvq does ALL the effort. Patient does none of the effort to complete the activity. Or, the assistance of 2 or more helpers is required for the patient to complete the activity. If activity was not attempted, code reason: 7-Patient Refused. 9-Not Applicable-not attempted and the patient did not perform the activity bef ore the current illness, exacerbation or injury. 10-Not Attempted due to Environmental Limitations-(lack of equipment, weather r estraints, etc.). 88-Not Attempted due to Medical Conditions or Safety Concerns. Eating (QC): 6 (Pt sitting in recliner to eat. Pt able to open all packages and use utensils properly. ) Oral Hygiene (QC): 5 (Pt has demostrated ability to complete oral care with set up in recliner due to fatigue. ) Bathing Location: L Arm, R Arm, L Upper Leg, R Upper Leg, L Lower Leg (including foot), R Lower Leg (including foot), Chest, Abdomen, Buttocks, Per ineal Area Shower/Bathe Self (QC): 4 (Pt sitting in recliner to complete sponge bath. Frequent rest breaks required due to fatigue. Used figure-four technique to wash feet. CGA in standing while cleansing buttocks/filipe area.) Upper Body Dressing (QC): 5 (Set up clothes on FWW. Sitting in recliner, can don/doff shirt with set up.) Lower Body Dressing (QC): 4 (Set up clothes on FWW. CGA sit-> stand while pt hikes pants over hips. Pt able to thread underwear/pants around feet and pull up.) On/Off Footwear: 5 (Pt used figure-four technique to don/doff socks. Lengthy rest break required between feet.) Toileting Hygiene (QC): 4 (CGA for safety. Pt able to manipulate clothing and clean while holding grab bars for support.) Toilet Transfer (QC): 4 (CGA for safety sit-> stand) Pt requires increased time during ADLs and all functional tasks due to extreme fatigue. Pt used shower cap to wash hair during sponge bath. Other Treatment Ended session with pt sitting in recliner with call light/phone in reach. Family and present in room. All needs met. Education OT Patient Education: Energy conservation, Modified ADL techniques Teaching Recipient: Patient Teaching Methods: Demonstration, Discussion Response to Teaching: Verbalize Understanding, Return Demonstration BIMS CAM BIMS Expression of Ideas and Wants: Without Difficulty Understanding Verbal Content: Understands Brief Interview/Mental Status: Yes IRF SOPHIA BIMS: IRF SOPHIA BIMS Response (Comments) Value Repitition of Three Words Three 3 Recalls Socks Yes, No Cue Required 2 Recalls Blue Yes, No Cue Required 2 Recalls Bed Yes, After Cueing 1 Year Correct 3 Month Accurate Within 5 Days 2 Day Correct 1 Total 14 Patient Normally Able to Recal: Current Session, Location of own room, Staff Names and faces, That he/she in a hsp Should Staff Asses. Mental St.: No Memory/Recall Ability: Current Season, Location of Own Room, Staff Names and Faces, That He/She in Hospit[facility] CAM Mental Status Change/Baseline: 0 Inattention: 0 Disorganized thinkin Altered level of consciousness: 0 OT [place] Goals Usp Goals Acute change in mental status: 0 Inattention: 2 Disorganized thinkin Altered level of consciousness: 0 Eating (QC): 6 (met) Oral Hygiene (QC): 6 (not met) Toileting Hygiene (QC): 4 (met) Shower/Bathe Self (QC): 5 (not met) Upper Body Dressing (QC): 6 (not mt) Lower Body Dressing (QC): 4 (met) On/Off Footwear (QC): 5 (met) 1=Demonstrate adherence to instructed precautions during ADL tasks. 2=Patient will verbalize/demonstrate understanding of assistive devices/modifications for ADL. 3=Patient will improve strength/tolerance for activity to enable patient to perform ADL's. OT Education/Plan Problem List/Assessment Assessment: Decreased Activ Tolerance, Decreased UE Strength, Impaired Self- Care Skills Discharge Recommendations Plan/Recommendations: Continue POC Treatment Plan/Plan of Care Patient would benefit from OT for education, treatment and training to promote independence in ADL's, mobility, safety and/or upper extremity function for ADL's. Plan of Care: ADL Retraining, Caregiver Training, Functional Mobility, Group Exercise/Act as Ind, UE Funct Exercise/Act Treatment Duration: Mar 22, 2023 Frequency: At least 5 of 7 days/Wk (IRF) Estimated Hrs Per Day: 1.5 hours per day Agreement: Yes Rehab Potential: Good Time Start Time: 07:00 Stop Time: 08:45 DATE: Mar 13, 2023 Total Time Billed (hr/min): 105 Billed Treatment Time 1 visit- ADL 7 (105 min) [place] Mar 13, 2023 07:41
[2023-03-13] MEDS: NS IV 500 ML 500 ML IV SCH (08:18)
[2023-03-13] MEDS: meTOprolol TARTRATE (IR) 25 MG TABLET PO SCH ×2 (09:57→20:38)
[2023-03-13] MEDS: ACYCLOVIR 400 MG CAPSULE/TABLET PO SCH ×2 (09:57→20:38)
[2023-03-13] MEDS: PANTOPRAZOLE 20 MG TABLET PO SCH (09:57)
[2023-03-13] MEDS: OXYBUTYNIN 5 MG TABLET PO SCH ×3 (09:57→20:38)
[2023-03-13] MEDS: MICONAZOLE 2% POWDER 90 GM TOP SCH ×2 (10:03→20:39)
[2023-03-13] MEDS: SENNA W/DOCUSATE TABLET PO SCH ×2 (10:07→20:40)
[2023-03-13] MEDS: DOCUSATE SODIUM 100 MG CAPSULE PO SCH ×2 (10:07→20:40)
[2023-03-13] MEDS: LevoFLOXacin 750 MG TABLET PO SCH (11:44)
--- NOTE | 2023-03-13 15:23 | ST Dysphagia Evaluation ---
Speech Evaluation-General Medical Diagnosis Critical Illness Myopathy Onset Date: Feb 13, 2023 Therapy Diagnosis Therapy Diagnosis: Dysphagia Referral Referring Physician: Dr. Sanchez Reason for Referral: Evaluation/Treatment Medical History Pertinent Medical History: Atrial Fib, Arthritis, CAD, DM, GERD, HTN, Prostate CA Current History Over the previous weekend, nursing staff witnessed 2 coughing/choking episodes on thin liquids, with concern for dysphagia and aspiration. Reviewed History: Yes Social History Current Living Status: Significant Other Speech PLF/Current-Dysphagia Prior Level of Function Pt has been on regular diet with thin liquids. PO intake is poor, with the pt reporting severe lack of appetite and change in taste since chemotherapy was initiated. Subjective The pt reported feeling "terrible." When questioned, the pt stated, "when you know you have a sentence." Overall depressed affect noted. Cognitive Status Patient Orientation: Person, Place, Time Oral Motor Skills Denture Type: Full- Upper & Lower Current Food Consistancy: Regular, Thin Liquids Ability to Follow Directions: Good Oral Expression Ability: No Impairment Voice Voice Phonatory-Based Quality: Normal Face Facial Symmetry: Symmetrical Oral-Facial Assessment Oral-Facial Dentition: Normal Labial Seal Description: Normal Smile: Normal Puff Cheeks: Normal Lingual Protrusion: Normal Lingual ROM: Normal Lingual Strength: Normal Volitional Dry Swallow: Yes Dysphagia Evaluation Consistencies Presented: Regular, Thin Liquid, Mixed Oral Phase: Oral Residue Mildly reduced lateralization for rotary chewing due to dentures. Moderate oral dryness noted, the pt reported this is chronic since time of hospital admission. The pt had difficulty manipulating dry solid (cracker) due to xerostomia. A small liquid sip aided moisture, however mild diffuse stasis remaining on tongue and dentures. Mixed consistency (fruit cup) appeared to WFL. Multiple drinks of water, in isolation, with food bolus, and pills were provided. The pt demonstrated minimal time of oral hold prior to swallow initiation. Mild cough was noted after swallowing medication with water, otherwise no s/s penetration or aspiration were observed. The pt reported that he was poorly positioned in bed (laying down) for one occurrence of coughing on water over the weekend. He reported occasional episodes of coffee or water "going down the wrong pipe" prior to this admission. Dietary Recommendations: Regular Liquid Recommendations: Thin Swallowing Precautions: Sitting Upright 90 Degrees The pt should be seated upright for all PO intake. If in bed, elevate HOB greater than 45 degrees. Liquid wash for solids as needed. Dysphagia Evaluation Summary The pt presented overall safe and functional swallow over multiple trials of thin liquids. Episodic aspiration may be due to positioning (laying or reclining in bed). Nursing staff reported decreased PO intake, the pt indicated this is due to severely reduced appetite and change in taste. He denied fear of eating or drinking. Direct intervention for dysphagia is not recommended at this time as the pt demonstrates infrequent episodes of coughing with liquids. Upright positioning for PO intake is strongly recommended for optimal safety. Speech-Plan Treatment Plan Speech Therapy Treatment Plan: Discontinue ST (No treatment recommended) Treatment Duration: Mar 02, 2023 Frequency: Modified Program (IRF) Estimated Hrs Per Day: Other (no treatment recommended) Rehab Potential: Good Safety Risks/Education Teaching Recipient: Patient Teaching Methods: Discussion Response to Teaching: Verbalize Understanding Education Topics Provided: Use liquid wash for solids as needed, upright positioning for all PO intake Time Speech Therapy Time In: 09:15 Speech Therapy Time Out: 10:15 DATE: Mar 13, 2023 Total Billed Time: 60 Billed Treatment Time 1 ZURDO RAYGOZA Mar 13, 2023 15:23
--- NOTE | 2023-03-13 15:55 | Physical Therapy Daily Note ---
PT Daily Note-Current Subjective Pt sitting in recliner upon arrival. Pt agrees to PT for QC scoring for possible upcoming d/c. Pain Location: No Pain Reported Section J - Health Conditions 1. Rarely or not at all 2. Occasionally 3. Frequently 4. Almost constantly 8. Unable to answer Pain Effect on Sleep: 1 Pain Interference with Therapy: 1 Pain Interference w/Day-to-Day: 1 Mental Status Patient Orientation: Person, Place, Time, Situation Attachments: IV Transfers SCALE: Activities may be completed with or without assistive devices. 2-Idzyjsnjpf-lqdjesd completes the activity by him/herself with no assistance from a helper. 5-Set-up or Clean-up Assistance-helper sets up or cleans up; patient completes activity. [place] assists only prior to or following the activity. 4-Supervision or Touching Assistance-helper provides verbal cues and/or touching/steadying and/or contact guard assistance as patient completes activity. Assistance may be provided throughout the activity or intermittently. 3-Partial/Moderate Assistance-helper does LESS THAN HALF the effort. [place] lifts, holds or supports trunk or limbs, but provides less than half the effort. 2-Substantial/Maximal Assistance-helper does MORE THAN HALF the effort. [place] lifts or holds trunk or limbs and provides more than half the effort. 1-Bwshdzayi-nycnud does ALL the effort. Patient does none of the effort to complete the activity. Or, the assistance of 2 or more helpers is required for the patient to complete the activity. If activity was not attempted, code reason: 7-Patient Refused. 9-Not Applicable-not attempted and the patient did not perform the activity before the current illness, exacerbation or injury. 10-Not Attempted due to Environmental Limitations-(lack of equipment, weather restraints, etc.). 88-Not Attempted due to Medical Conditions or Safety Concerns. Roll Left & Right (QC): 6 Sit to Lying (QC): 6 Lying to Sitting/Side of Bed(Q: 6 Sit to Stand (QC): 6 Chair/Wpw-wc-Zoals Xfer(QC): 6 Toilet Transfer (QC): 6 Car Transfer (QC): 6 Weight Bearing Right Lower Extremity: Right Full Weight Bearing Left Lower Extremity: Left Full Weight Bearing Gait Training Does the Patient Walk?: Yes Distance: 60', 10', 70' Walk 10 feet (QC): 5 Walk 50 ft with 2 Turns(QC): 5 Walk 150 ft (QC): 88 Walking 10ft/uneven surface-QC: 5 Gait Assistive Device: FWW Pt fatigues before completing 150'. Wheelchair Training Does the Pt Use a Wheelchair?: Yes Wheel 50 ft with 2 turns (QC): 5 Wheel 150 ft (QC): 5 Type of Wheelchair: Manual Stair Training Stair Training: Handrails/: 2 handrails #of Steps: 6 1 Step (curb) (QC): 4 4 Steps (QC): 88 12 Steps (QC): 88 Stairs: Pattern: Step to Pt has to rest after every 2 steps but attempts multiple times. Balance Picking up an Object (QC): 5 Special Test Comments Pt uses digital manager Treatments Pt completes QC scoring items listed above. Pt returns to room at end of tx with all needs met, call light in hand. Assessment Current Status: Fair Progress Health limits further improvement. Pt has gained strength and activity swetha. but cannot gain further due to health concerns. PT Shelter Goals Chemical Laboratory Technician Goals PT Shelter Goals Time Frame: Mar 15, 2023 Roll Left & Right (QC): 6 (Pt will be Mod I with all aspects of functional mobility to be able to safely return home with spouse. ) Sit to Lying (QC): 6 (Pt will be Mod I with all aspects of functional mobility to be able to safely return home with spouse. ) Lying-Sitting on Side/Bed(QC): 6 (Pt will be Mod I with all aspects of fun ctional mobility to be able to safely return home with spouse. ) Sit to Stand (QC): 6 (Pt will be Mod I with all aspects of functional mobility to be able to safely return home with spouse. ) Chair/Qkv-cq-Myusu Xfer(QC): 6 (Pt will be Mod I with all aspects of functional mobility to be able to safely return home with spouse. ) Toilet Transfer (QC): 6 (Pt will be Mod I with all aspects of functional mobility to be able to safely return home with spouse. ) Car Transfer (QC): 6 (Pt will be Mod I with all aspects of functional mobility to be able to safely return home with spouse. ) Does the Patient Walk: Yes Walk 10 feet (QC): 6 (Pt will be Mod I with all aspects of functional mobility to be able to safely return home with spouse. ) Walk 50ft with 2 Turns (QC): 6 (Pt will be Mod I with all aspects of functional mobility to be able to safely return home with spouse. ) Walk 150 ft (QC): 6 (Pt will be Mod I with all aspects of functional mobility to be able to safely return home with spouse. ) Walking 10ft on Uneven Surface: 6 (Pt will be Mod I with all aspects of functio nal mobility to be able to safely return home with spouse. ) 1 Step (curb) (QC): 6 (Pt will be Mod I with all aspects of functional mobility to be able to safely return home with spouse. ) 4 Steps (QC): 6 (Pt will be Mod I with all aspects of functional mobility to be able to safely return home with spouse. ) 12 Steps (QC): 6 (Pt will be Mod I with all aspects of functional mobility to be able to safely return home with spouse. ) Picking up an Object (QC): 6 (Pt will be Mod I with all aspects of functional mobility to be able to safely return home with spouse. With digital manager ) Does the Pt use WC or Scooter?: Yes Wheel 50 feet with 2 turns (QC: 6 (Pt will be Mod I with all aspects of functional mobility to be able to safely return home with spouse. ) Type: Manual Wheel 150 feet: 6 (Pt will be Mod I with all aspects of functional mobility to be able to safely return home with spouse. ) Type: Manual PT Plan Problem List Problem List: Activity Tolerance Treatment/Plan Treatment Plan: Continue Plan of Care Treatment Plan: Bed Mobility, Education, Functional Activity Dianne, Functional Strength, Group Therapy, Gait, Safety, Therapeutic Exercise, Transfers Treatment Duration: Mar 15, 2023 Frequency: At least 5 of 7 days/Wk (IRF) Estimated Hrs Per Day: 1.5 hours per day Patient and/or Family Agrees t: Yes Time Time In: 1100 Time Out: 1200 DATE: Mar 13, 2023 Total Billed Treatment Time: 60 Total Billed Treatment 1, GT (20m) & FA x3 (40m) JESSI STEVE ROTARY DRILLER HELPER Mar 13, 2023 15:55
[2023-03-13] MEDS: TAMSULOSIN 0.4 MG (FLOMAX) CAP PO SCH (17:02)
[2023-03-13] MEDS: FINASTERIDE 5 MG TABLET PO SCH (17:02)
[2023-03-13] MEDS: HYPOCHLOROUS ACID/NaCl WOUND SOLN 250 ML IR PRN (20:39)
[2023-03-14] MEDS: NS IV 500 ML 500 ML IV SCH ×2 (03:32→20:00)
--- NOTE | 2023-03-14 05:10 | PM&R Progress Note ---
Subjective HPI/CC On Admission Date Seen by Provider: Mar 14, 2023 Time Seen by Provider: 11:00 Subjective/Events-last exam 03/14/2023: Patient doing well Set for DC to [facility] and rehab tomorrow No falls No pain Prognosis is poor 03/13/2023: Patient about the same Talking about his chances of survival Family at the bedside Awaiting swing bed possibility Patient appears to be weaker and transfusion and platelet transfusion dependent 03/12/2023: Patient doing better Still fatigued Reviewed meds and labs 03/11/2023: Doing well No pain Tired he reports Labs monitored by Dr Neri 03/10/2023: Patient seems to be doing better No major concerns Reviewed meds and labs No major concerns 03/09/2023: No major issues Transfusion maintained NO falls Improved strength Dr Neri met with about prognosis with the patient in the discussion Prognosis guarded 03/08/2023: Patient doing much better No falls Receiving platelet infusion Much more alert today 03/07/2023: No major issues No pain reported BM+ Labs reviewed 03/06/2023: Much improved Slow recovery Labs reviewed No falls BM+ 03/05/2023: Patient doing really well Slow recovery but moving better at bedside Platelet count 16,000 so much improved We will monitor closely 03/04/2023: No major issues Platelets ordered by Dr Neri No pain Slow recovery 03/03/2023: Patient doing much better Slow recovery Dr. Anderson will be consulted and he will manage the transfusion requirement 03/02/2023: Patient still very weak Giving 1 unit of blood due to hemoglobin 7.8 Slow recovery Platelet count good Maintain on Levaquin we will check stop date soon Review of Systems General: Fatigue, Malaise Objective Exam Vital Signs Vital Signs Date Time Temp Pulse Resp B/P (MAP) Pulse Ox O2 Delivery O2 Flow Rate FiO2 03/14/23 09:30 Room Air 03/14/23 07:44 36.7 103 19 157/72 (100) 94 Capillary Refill : General Appearance: No Apparent Distress, WD/WN, Chronically ill HEENT: PERRL/EOMI, Normal ENT Inspection, Pharynx Normal Neck: Full Range of Motion, Normal Inspection, Non Tender, Supple, Carotid Bruit Respiratory: Chest Non Tender, Lungs Clear, Normal Breath Sounds, No Accessory Muscle Use, No Respiratory Distress Cardiovascular: Regular Rate, Rhythm, No Edema, No Gallop, No JVD, No Murmur, Normal Peripheral Pulses Gastrointestinal: Normal Bowel Sounds, No Organomegaly, No Pulsatile Mass, Non Tender, Soft Back: Normal Inspection, No CVA Tenderness, No Vertebral Tenderness Extremity: Normal Capillary Refill, Normal Inspection, Normal Range of Motion, Non Tender, No Calf Tenderness, No Pedal Edema Neurologic/Psychiatric: Alert, Oriented x3, tapping machine operator automatic II-XII Norm as Tested, Abnormal Gait, Depressed Affect, Motor Weakness (generalized) Skin: Normal Color, Warm/Dry Lymphatic: No Adenopathy Results/Procedures Lab Laboratory Tests 03/14/23 06:35 Patient resulted labs reviewed. FIM Transfers Therapy Code Descriptions/Definitions Functional [place] Measure: 0=Not Assessed/NA 4=Minimal Assistance 1=Total Assistance 5=Supervision or Setup 2=Maximal Assistance 6=Modified [place] 3=Moderate Assistance 7=Complete IndependenceSCALE: Activities may be completed with or without assistive devices. 9-Mplpnszjzd-iveuzim completes the activity by him/herself with no assistance from a helper. 5-Set-up or Clean-up Assistance-helper sets up or cleans up; patient completes activity. [place] assists only prior to or following the activity. 4-Supervision or Touching Assistance-helper provides verbal cues and/or t ouching/steadying and/or contact guard assistance as patient completes activity. Assistance may be provided throughout the activity or intermittently. 3-Partial/Moderate Assistance-helper does LESS THAN HALF the effort. [place] lifts, holds or supports trunk or limbs, but provides less than half the effort. 2-Substantial/Maximal Assistance-helper does MORE THAN HALF the effort. [place] lifts or holds trunk or limbs and provides more than half the effort. 1-Xrqmoggdy-ierzby does ALL the effort. Patient does none of the effort to complete the activity. Or, the assistance of 2 or more helpers is required for the patient to complete the activity. If activity was not attempted, code reason: 7-Patient Refused. 9-Not Applicable-not attempted and the patient did not perform the activity before the current illness, exacerbation or injury. 10-Not Attempted due to Environmental Limitations-(lack of equipment, weather restraints, etc.). 88-Not Attempted due to Medical Conditions or Safety Concerns. Roll Left to Right (QC): 6 Sit to Lying (QC): 6 Sit to Stand (QC): 6 Chair/Noj-um-Azawh Xfer(QC): 6 Car Transfer (QC): 6 Gait Training Does the Patient Walk?: Yes Distance: 60', 10', 70' Walk 10 feet (QC): 5 Walk 50 ft with 2 Turns(QC): 5 Walk 150 ft (QC): 88 Walking 10ft/uneven surface-QC: 5 Gait Assistive Device: FWW Wheelchair Training Does the Pt Use a Wheelchair?: Yes Distance: 50ft Wheel 50 ft with 2 turns (QC): 5 Wheel 150 ft (QC): 5 Type of Wheelchair: Manual Stair Training Stair Training: Handrails/: 2 handrails #of Steps: 6 1 Step (curb) (QC): 4 4 Steps (QC): 88 12 Steps (QC): 88 Stairs: Pattern: Step to Balance Picking up an Object (QC): 5 ADL-Treatment Eating (QC): 6 (Pt sitting in recliner to eat. Pt able to open all packages and use utensils properly. ) Oral Hygiene (QC): 5 (Pt has demostrated ability to complete oral care with set up in recliner due to fatigue. ) Bathing Location: L Arm, R Arm, L Upper Leg, R Upper Leg, L Lower Leg (including foot), R Lower Leg (including foot), Chest, Abdomen, Buttocks, Perineal Area Shower/Bathe Self (QC): 4 (Pt sitting in recliner to complete sponge bath. Frequent rest breaks required due to fatigue. Used figure-four technique to wash feet. CGA in standing while cleansing buttocks/filipe area.) Upper Body Dressing (QC): 5 (Set up clothes on FWW. Sitting in recliner, can don/doff shirt with set up.) Lower Body Dressing (QC): 4 (Set up clothes on FWW. CGA sit-> stand while pt hikes pants over hips. Pt able to thread underwear/pants around feet and pull up.) On/Off Footwear (QC): 5 (Pt used figure-four technique to don/doff socks. Lengthy rest break required between feet.) Toileting Hygiene (QC): 4 (CGA for safety. 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 Anderson 03/04/2023: Transfused platelets 03/05/2023: Supportive care Slow recovery 03/06/2023: Monitor hgb and platelets 03/07/2023: Monitor closely Fall risk 03/08/2023: Transfuse as necessary Supportive care 03/09/2023: Monitor pain 03/10/2023: Supportive care Monitor closely 03/11/2023: Monitor closely Pain managed 03/12/2023: Monitor closely Could look at hospice at discharge? 03/13/2023: Not a swing bed candidate 03/14/2023: Monitor closely Monitor pain (1) Myopathy (2) Acute myelogenous leukemia Status: Acute (3) Atrial fibrillation Status: Chronic (4) CAD (coronary artery disease) (5) HTN (hypertension) Status: Chronic (6) BPH (benign prostatic hyperplasia) Status: Chronic JANEY NAQVI DO Mar 14, 2023 05:09
[2023-03-14] MEDS: CATHETER FLUSH 10 ML SYR IVP SCH ×3 (06:31→21:50)
[2023-03-14] MEDS: THERAPEUTIC MULTIVITAMIN W/MINERALS TABLET PO SCH (06:32)
[2023-03-14 06:52] LABS: BASOPHILS % (AUTO) 0 % (0-10); MEAN CORPUSCULAR VOLUME 97 fL (80-99)
[2023-03-14 06:54] LABS: EOSINOPHILS # (AUTO) 1.1 10^3/uL (0.0-0.3); EOSINOPHILS % (AUTO) 5 % (0-10); HEMATOCRIT 22 % (40-54); HEMOGLOBIN 7.3 g/dL (13.3-17.7); LYMPHOCYTES # (AUTO) 8.1 10^3/uL (1.0-4.0); LYMPHOCYTES % (AUTO) 34 % (12-44); MEAN CORPUSCULAR HEMOGLOBIN 32 pg (25-34); MEAN CORPUSCULAR HGB CONC 33 g/dL (32-36); MONOCYTES # (AUTO) 7.9 10^3/uL (0.0-1.0); MONOCYTES % (AUTO) 33 % (0-12); NEUTROPHILS # (AUTO) 5.6 10^3/uL (1.8-7.8); NEUTROPHILS % (AUTO) 24 % (42-75); WHITE BLOOD COUNT 23.7 10^3/uL (4.3-11.0)
[2023-03-14 06:58] LABS: PLATELET COUNT 14 10^3/uL (130-400)
[2023-03-14 07:44] VITALS: BP 157/72
[2023-03-14] MEDS: OXYBUTYNIN 5 MG TABLET PO SCH ×3 (08:34→20:59)
[2023-03-14] MEDS: ACYCLOVIR 400 MG CAPSULE/TABLET PO SCH ×2 (08:34→20:59)
[2023-03-14] MEDS: meTOprolol TARTRATE (IR) 25 MG TABLET PO SCH ×2 (08:34→20:59)
[2023-03-14] MEDS: PANTOPRAZOLE 20 MG TABLET PO SCH (08:34)
[2023-03-14] MEDS: LevoFLOXacin 750 MG TABLET PO SCH (14:49)
[2023-03-14] MEDS ORDERED: CHOL-34 PO (15:24)
[2023-03-14] MEDS ORDERED: CHLO25TA22 PO (15:24)
[2023-03-14] MEDS ORDERED: LOSA100T58 PO (15:24)
[2023-03-14] MEDS ORDERED: CYAN-23 PO (15:24)
[2023-03-14] MEDS ORDERED: SITA100T12 PO (15:24)
[2023-03-14] MEDS ORDERED: METO100T12 PO (15:24)
--- NOTE | 2023-03-14 15:40 | Physical Therapy Daily Note ---
PT Daily Note-Current Subjective Pt sitting in recliner upon arrival. Pt agrees to PT/OT co-treat. Co-treatment with OT secondary to decreased endurance, activity tolerance, and the need of a second person for safety to increase (I) with functional tasks and to decrease the burden of care. PT focusing on functional mobility and gait while OT focus ing on ADLs, assisting with standing, and strengthening BUE's. Pain Location: No Pain Reported Section J - Health Conditions 1. Rarely or not at all 2. Occasionally 3. Frequently 4. Almost constantly 8. Unable to answer Pain Effect on Sleep: 1 Pain Interference with Therapy: 1 Pain Interference w/Day-to-Day: 1 Mental Status Patient Orientation: Person, Place, Time, Situation Transfers SCALE: Activities may be completed with or without assistive devices. 5-Gfjjdpcdfi-aadxizy completes the activity by him/herself with no assistance from a helper. 5-Set-up or Clean-up Assistance-helper sets up or cleans up; patient completes activity. [place] assists only prior to or following the activity. 4-Supervision or Touching Assistance-helper provides verbal cues and/or touching/steadying and/or contact guard assistance as patient completes activity. Assistance may be provided throughout the activity or intermittently. 3-Partial/Moderate Assistance-helper does LESS THAN HALF the effort. [place] lifts, holds or supports trunk or limbs, but provides less than half the effort. 2-Substantial/Maximal Assistance-helper does MORE THAN HALF the effort. [place] lifts or holds trunk or limbs and provides more than half the effort. 5-Hitzmchdo-jowkmp does ALL the effort. Patient does none of the effort to complete the activity. Or, the assistance of 2 or more helpers is required for the patient to complete the activity. If activity was not attempted, code reason: 7-Patient Refused. 9-Not Applicable-not attempted and the patient did not perform the activity before the current illness, exacerbation or injury. 10-Not Attempted due to Environmental Limitations-(lack of equipment, weather restraints, etc.). 88-Not Attempted due to Medical Conditions or Safety Concerns. Sit to Stand (QC): 5 Chair/Fjp-te-Xvtpd Xfer(QC): 5 Toilet Transfer (QC): 5 Weight Bearing Right Lower Extremity: Right Full Weight Bearing Left Lower Extremity: Left Full Weight Bearing Gait Training Does the Patient Walk?: Yes Distance: 50' Walk 10 feet (QC): 4 Walk 50 ft with 2 Turns(QC): 4 Gait Persons Needed: 1 Gait Assistive Device: FWW Wheelchair Training Does the Pt Use a Wheelchair?: Yes Wheel 50 ft with 2 turns (QC): 4 Wheel 150 ft (QC): 4 Type of Wheelchair: Manual Exercises Seated Therapy Exercises: Ankle pumps, Long arc quads, Hip flexion, Hamstring Curls, Hip abd/add, Glut set Seated Reps: 15 Treatments SPT from bedside chair<>WC performed with CGA x 1 with RW See above in PT's note for mobility Pt performed ADLs during session (see OT note) Pt performed BUE strengthening activity with green flexbar and 3# dumbbell performing 2 sets x 10 reps in all available planes of motion to increase BUE strength, endurance, and activity tolerance to increase (I) with ADLs and IADLs. Pt completes Seated B LE EX at w/c level. Pt required intermittent rest breaks in between sets secondary to fatigue. Pt reported no pain at this time. Pt returns to room at end of tx to rest in recliner. All needs met, call light in hand. Assessment Current Status: Fair Progress Strength remains strong although still fatigues easily 2/2 health concerns. PT Nursing Home Goals Corrective And Manual Arts Therapist Goals PT Corrective And Manual Arts Therapist Goals Time Frame: Mar 15, 2023 Roll Left & Right (QC): 6 (Pt will be Mod I with all aspects of functional mobility to be able to safely return home with spouse. ) Sit to Lying (QC): 6 (Pt will be Mod I with all aspects of functional mobility to be able to safely return home with spouse. ) Lying-Sitting on Side/Bed(QC): 6 (Pt will be Mod I with all aspects of functional mobility to be able to safely return home with spouse. ) Sit to Stand (QC): 6 (Pt will be Mod I with all aspects of functional mobility to be able to safely return home with spouse. ) Chair/Ezj-uo-Ngyrn Xfer(QC): 6 (Pt will be Mod I with all aspects of functional mobility to be able to safely return home with spouse. ) Toilet Transfer (QC): 6 (Pt will be Mod I with all aspects of functional mobility to be able to safely return home with spouse. ) Car Transfer (QC): 6 (Pt will be Mod I with all aspects of functional mobility to be able to safely return home with spouse. ) Does the Patient Walk: Yes Walk 10 feet (QC): 6 (Pt will be Mod I with all aspects of functional mobility to be able to safely return home with spouse. ) Walk 50ft with 2 Turns (QC): 6 (Pt will be Mod I with all aspects of functional mobility to be able to safely return home with spouse. ) Walk 150 ft (QC): 6 (Pt will be Mod I with all aspects of functional mobility to be able to safely return home with spouse. ) Walking 10ft on Uneven Surface: 6 (Pt will be Mod I with all aspects of functional mobility to be able to safely return home with spouse. ) 1 Step (curb) (QC): 6 (Pt will be Mod I with all aspects of functional mobility to be able to safely return home with spouse. ) 4 Steps (QC): 6 (Pt will be Mod I with all aspects of functional mobility to be able to safely return home with spouse. ) 12 Steps (QC): 6 (Pt will be Mod I with all aspects of functional mobility to be able to safely return home with spouse. ) Picking up an Object (QC): 6 (Pt will be Mod I with all aspects of functional mobility to be able to safely return home with spouse. With helmet coverer ) Does the Pt use WC or Scooter?: Yes Wheel 50 feet with 2 turns (QC: 6 (Pt will be Mod I with all aspects of functional mobility to be able to safely return home with spouse. ) Type: Manual Wheel 150 feet: 6 (Pt will be Mod I with all aspects of functional mobility to be able to safely return home with spouse. ) Type: Manual PT Plan Problem List Problem List: Activity Tolerance Treatment/Plan Treatment Plan: Continue Plan of Care Treatment Plan: Bed Mobility, Education, Functional Activity Dianne, Functional Strength, Group Therapy, Gait, Safety, Therapeutic Exercise, Transfers Treatment Duration: Mar 15, 2023 Frequency: At least 5 of 7 days/Wk (IRF) Estimated Hrs Per Day: 1.5 hours per day Patient and/or Family Agrees t: Yes Time Time In: 1030 Time Out: 1200 DATE: Mar 14, 2023 Total Billed Treatment Time: 90 Total Billed Treatment Co-treat w/OT for 90m 1, FA x2 (30m), WCH x2 (30m) & EX x2 (30m) JESSI STEVE TURKISH RUBBER Mar 14, 2023 15:40
--- NOTE | 2023-03-14 16:19 | Occupational Ther Daily Note ---
OT Current Status-Daily Note Subjective Pt consented to OT session this A.M. CO-treatment with PT secondary to decreased endurance, activity tolerance, and the need of a second person for safety to increase (I) with functional tasks and to decrease the burden of care. PT focusing on functional mobility and gait while OT focusing on ADLs, assisting w ith standing, and strengthening BUE's. Pain Numeric Pain Scale: 0-No Pain Location: No Pain Reported Mental Status/Objective Patient Orientation: Person, Place, Time, Situation, Normal For Age Attachments: IV ADL-Treatment Therapy Code Descriptions/Definitions Functional [place] Measure: 0=Not Assessed/NA 4=Minimal Assistance 1=Total Assistance 5=Supervision or Setup 2=Maximal Assistance 6=Modified [place] 3=Moderate Assistance 7=Complete IndependenceSCALE: Activities may be completed with or without assistive devices. 5-Dhwhkrtybi-dijcktl completes the activity by him/herself with no assistance from a helper. 5-Set-up or Clean-up Assistance-helper sets up or cleans up; patient completes activity. [place] assists only prior to or following the activity. 4-Supervision or Touching Assistance-helper provides verbal cues and/or touching/steadying and/or contact guard assistance as patient completes activity. Assistance may be provided throughout the activity or intermittently. 3-Partial/Moderate Assistance-helper does LESS THAN HALF the effort. [place] lifts, holds or supports trunk or limbs, but provides less than half the effort. 2-Substantial/Maximal Assistance-helper does MORE THAN HALF the effort. [place] lifts or holds trunk or limbs and provides more than half the effort. 3-Jwhjuyrss-zowiii does ALL the effort. Patient does none of the effort to complete the activity. Or, the assistance of 2 or more helpers is required for the patient to complete the activity. If activity was not attempted, code reason: 7-Patient Refused. 9-Not Applicable-not attempted and the patient did not perform the activity before the current illness, exacerbation or injury. 10-Not Attempted due to Environmental Limitations-(lack of equipment, weather restraints, etc.). 88-Not Attempted due to Medical Conditions or Safety Concerns. Lower Body Dressing (QC): 4 (SBA for toileting with pt able to manage clothing and clean filipe area.) Toileting Hygiene (QC): 4 (SBA for toileting with pt able to manage clothing and clean filipe area.) Toilet Transfer (QC): 4 (SPT from WC<>BSC over toilet with SBA x 1 with pt utilizing GB's for steadiness) Other Treatment SPT from bedside chair<>WC performed with CGA x 1 with RW See PT's note for functional mobility tasks performed during session Pt performed ADLs during session (see scores above) Pt performed BUE strengthening activity with green flexbar and 3# dumbbell performing 2 sets x 10 reps in all available planes of motion to increase BUE strength, endurance, and activity tolerance to increase (I) with ADLs and IADLs. Pt required intermittent rest breaks in between sets secondary to fatigue. Pt reported no pain at this time. Education OT Patient Education: Energy conservation, Exercise program, Home exercise program, Instructions to caregiver, Modified ADL techniques, Progress toward Goal/Update tx plan, Purpose of tx/functional activities, Rehab process, Safety issues, Transfer techniques, Use of adapted equipment Teaching Recipient: Patient Teaching Methods: Demonstration, Discussion Response to Teaching: Verbalize Understanding, Return Demonstration OT Hog Worker Goals Hog Worker Goals Acute change in mental status: 0 Inattention: 0 Disorganized thinkin Altered level of consciousness: 0 Eating (QC): 6 (met) Oral Hygiene (QC): 6 (not met) Toileting Hygiene (QC): 4 (met) Shower/Bathe Self (QC): 5 (not met) Upper Body Dressing (QC): 6 (not mt) Lower Body Dressing (QC): 4 (met) On/Off Footwear (QC): 5 (met) 1=Demonstrate adherence to instructed precautions during ADL tasks. 2=Patient will verbalize/demonstrate understanding of assistive devices/modifi cations for ADL. 3=Patient will improve strength/tolerance for activity to enable patient to perform ADL's. OT Education/Plan Problem List/Assessment Assessment: Decreased Activ Tolerance, Decreased UE Strength, Impaired Funct Balance, Impaired I ADL's, Impaired Self-Care Skills Discharge Recommendations Plan/Recommendations: Continue POC Barriers to Progress Fatigue, decreased activity tolerance, decreased endurance Treatment Plan/Plan of Care Treatment,Training & Education: Yes Patient would benefit from OT for education, treatment and training to promote independence in ADL's, mobility, safety and/or upper extremity function for ADL's. Plan of Care: ADL Retraining, Caregiver Training, Functional Mobility, Group Exercise/Act as Ind, UE Funct Exercise/Act Treatment Duration: Mar 22, 2023 Frequency: At least 5 of 7 days/Wk (IRF) Estimated Hrs Per Day: 1.5 hours per day Agreement: Yes Rehab Potential: Good Ending session, pt remained seated in bedside chair with needs/call light in reach and at bedside. Time Start Time: 10:30 Stop Time: 12:00 DATE: Mar 14, 2023 Total Time Billed (hr/min): 90 Billed Treatment Time 90 minutes Co-treat with PT from ([id number] [phone] 1200) ADL 3 EX 3 WHIT DE LEON OT Mar 14, 2023 16:19
[2023-03-14] MEDS: TAMSULOSIN 0.4 MG (FLOMAX) CAP PO SCH (17:23)
[2023-03-14] MEDS: FINASTERIDE 5 MG TABLET PO SCH (17:23)
[2023-03-14] MEDS: MICONAZOLE 2% POWDER 90 GM TOP SCH ×2 (17:24→21:00)
[2023-03-14 20:30] VITALS: BP 159/71
[2023-03-14] MEDS: SENNA W/DOCUSATE TABLET PO SCH (21:00)
[2023-03-14] MEDS: DOCUSATE SODIUM 100 MG CAPSULE PO SCH (21:00)
[2023-03-15] MEDS ORDERED: OMEP20CA18 PO (05:01)
[2023-03-15] MEDS ORDERED: LEVO750T PO (05:01)
[2023-03-15] MEDS ORDERED: FLUC100T10 PO (05:01)
[2023-03-15] MEDS ORDERED: TMSL.4C PO (05:01)
[2023-03-15] MEDS ORDERED: METO-333 PO (05:01)
[2023-03-15] MEDS ORDERED: MICO90PO TOP (05:01)
[2023-03-15] MEDS ORDERED: OXYB15TA19 PO (05:01)
[2023-03-15] MEDS ORDERED: DUTA1CPM4 PO (05:01)
[2023-03-15] MEDS ORDERED: ACYC400T21 PO (05:01)
--- NOTE | 2023-03-15 05:02 | Discharge Summary ---
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 Anderson 03/04/2023: Transfused platelets 03/05/2023: Supportive care Slow recovery 03/06/2023: Monitor hgb and platelets 03/07/2023: Monitor closely Fall risk 03/08/2023: Transfuse as necessary Supportive care 03/09/2023: Monitor pain 03/10/2023: Supportive care Monitor closely 03/11/2023: Monitor closely Pain managed 03/12/2023: Monitor closely Could look at hospice at discharge? 03/13/2023: Not a swing bed candidate 03/14/2023: Monitor closely Monitor pain (1) Myopathy (2) Acute myelogenous leukemia Status: Acute (3) Atrial fibrillation Status: Chronic (4) CAD (coronary artery disease) (5) HTN (hypertension) Status: Chronic (6) BPH (benign prostatic hyperplasia) Status: Chronic Discharge Summary Discharge Physical Examination Allergies: Coded Allergies: [id number] Reductase Inhibitor (Verified Allergy, Mild, 08/13/20) NSAIDS (Non-Steroidal Anti-Inflamma (Verified Allergy, Unknown, STOMACH UPSET, 03/07/23) amiodarone (Unverified Allergy, Unknown, 06/12/17) nebivolol (Verified Adverse Reaction, Intermediate, 08/13/20) ciprofloxacin (Verified Adverse Reaction, Mild, HALLUCINATIONS, 02/28/17) clonidine (Verified Adverse Reaction, Mild, HALLUCINATIONS, 02/28/17) mirabegron (Verified Adverse Reaction, Mild, 08/18/20) ELEVATED B/P Vitals & I&Os Vital Signs Date Time Temp Pulse Resp B/P (MAP) Pulse Ox O2 Delivery O2 Flow Rate FiO2 03/15/23 09:15 Room Air 03/15/23 08:00 36.6 81 19 153/79 (103) 92 General Appearance: Alert, Oriented X3, Cooperative Respiratory: Clear to Auscultation Cardiovascular: Regular Rate Psych/Mental Status: Mental Status NL Hospital Course Was the Problem List Reviewed?: Yes Uneventful hospital course after he was admitted for recovery from AML diagnosed at . He was transfusion dependent for platelets and hemoglobin. He remained on Levaquin for broad-spectrum antibiotics. Overall he continued to participate in therapy but he continued to become weaker meeting criteria for skilled care at [facility] and rehab Dr. Anderson will manage his hemoglobin and platelets. Overall poor prognosis. Labs (last 24 hrs) Laboratory Tests 03/02/23 06:20: White Blood Count 11.9H, Red Blood Count 2.34L, Hemoglobin 7.8L, Hematocrit 23L, Mean Corpuscular Volume 100H, Mean Corpuscular Hemoglobin 33, Mean Corpuscular Hemoglobin Concent 34, Red Cell Distribution Width 17.4H, Platelet Count 17*L, Mean Platelet Volume 10.5, Immature Granulocyte % (Auto) 7, Neutrophils (%) (Auto) 8L, Lymphocytes (%) (Auto) 28, Monocytes (%) (Auto) 53H, Eosinophils (%) (Auto) 5, Basophils (%) (Auto) 0, Neutrophils # (Auto) 0.9L, Lymphocytes # (Auto) 3.3, Monocytes # (Auto) 6.3H, Eosinophils # (Auto) 0.5H, Basophils # (Auto) 0.0, Immature Granulocyte # (Auto) 0.9H, Neutrophils % (Manual) 11, Lymphocytes % (Manual) 32, Monocytes % (Manual) 13, Eosinophils % (Manual) 1, Metamyelocytes % 2, Band Neutrophils 1, Blast Cells 40, Percent Immature Platelet Fraction 8.3H, Anisocytosis SLIGHT, Sodium Level 140, Potassium Level 3.9, Chloride Level 106, Carbon Dioxide Level 26, Anion Gap 8, Blood Urea Nitrogen 15, Creatinine 0.96, Estimat Glomerular Filtration Rate 79, BUN/Creatinine Ratio 16, Glucose Level 97, Calcium Level 8.7, Corrected Calcium 9.5, Magnesium Level 2.1, Total Bilirubin 1.8H, Aspartate Amino Transf (AST/SGOT) 31, Alanine Aminotransferase (ALT/SGPT) 31, Alkaline Phosphatase 80, Total Protein 5.4L, Albumin 3.0L 03/04/23 06:17: White Blood Count 14.4H, Red Blood Count 2.53L, Hemoglobin 8.2L, Hematocrit 25L, Mean Corpuscular Volume 97, Mean Corpuscular Hemoglobin 32, Mean Corpuscular Hemoglobin Concent 33, Red Cell Distribution Width 16.4H, Platelet Count 9*L, Mean Platelet Volume 11.6, Immature Granulocyte % (Auto) 9, Neutrophils (%) (Auto) 14L, Lymphocytes (%) (Auto) 19, Monocytes (%) (Auto) 55H, Eosinophils (%) (Auto) 3, Basophils (%) (Auto) 0, Neutrophils # (Auto) 2.0, Lymphocytes # (Auto) 2.8, Monocytes # (Auto) 8.0H, Eosinophils # (Auto) 0.4H, Basophils # (Auto) 0.0, Immature Granulocyte # (Auto) 1.3H, Percent Immature Platelet Fraction 8.9H, Sodium Level 139, Potassium Level 3.4L, Chloride Level 107, Carbon Dioxide Level 24, Anion Gap 8, Blood Urea Nitrogen 11, Creatinine 0.97, Estimat Glomerular Filtration Rate 78, BUN/Creatinine Ratio 11, Glucose Level 95, Calcium Level 8.6, Corrected Calcium 9.5, Total Bilirubin 1.6H, Aspartate Amino Transf (AST/SGOT) 30, Alanine Aminotransferase (ALT/SGPT) 26, Alkaline Phosphatase 75, Total Protein 5.2L, Albumin 2.9L, Uric Acid 3.5 03/05/23 05:30: White Blood Count 16.9H, Red Blood Count 2.52L, Hemoglobin 8.2L, Hematocrit 25L, Mean Corpuscular Volume 98, Mean Corpuscular Hemoglobin 33, Mean Corpuscular Hemoglobin Concent 33, Red Cell Distribution Width 16.4H, Platelet Count 16*L, Mean Platelet Volume 10.4, Immature Granulocyte % (Auto) 10, Neutrophils (%) (Auto) 17L, Lymphocytes (%) (Auto) 25, Monocytes (%) (Auto) 48H, Eosinophils (%) (Auto) 0, Basophils (%) (Auto) 0, Neutrophils # (Auto) 2.8, Lymphocytes # (Auto) 4.3H, Monocytes # (Auto) 8.2H, Eosinophils # (Auto) 0.1, Basophils # (Auto) 0.0, Immature Granulocyte # (Auto) 1.6H, Neutrophils % (Manual) 6, Lymphocytes % (Manual) 31, Monocytes % (Manual) 21, Eosinophils % (Manual) 2, Band Neutrophils 2, Blast Cells 34, Percent Immature Platelet Fraction 6.4, Anisocytosis MODERATE, Myelocytes % 1, Atypical Lymphocytes 3, Clumped Platelets NO CLUMPS NOTED 03/06/23 05:45: White Blood Count 21.4H, Red Blood Count 2.47L, Hemoglobin 8.1L, Hematocrit 24L, Mean Corpuscular Volume 98, Mean Corpuscular Hemoglobin 33, Mean Corpuscular Hemoglobin Concent 34, Red Cell Distribution Width 16.3H, Platelet Count 11*L, Mean Platelet Volume 9.8, Immature Granulocyte % (Auto) 5, Neutrophils (%) (Auto) 21L, Lymphocytes (%) (Auto) 17, Monocytes (%) (Auto) 53H, Eosinophils (%) (Auto) 4, Basophils (%) (Auto) 0, Neutrophils # (Auto) 4.5, Lymphocytes # (Auto) 3.7, Monocytes # (Auto) 11.4H, Eosinophils # (Auto) 0.9H, Basophils # (Auto) 0.0, Immature Granulocyte # (Auto) 1.0H, Percent Immature Platelet Fraction 7.0, Sodium Level 138, Potassium Level 3.5L, Chloride Level 108H, Carbon Dioxide Level 24, Anion Gap 6, Blood Urea Nitrogen 9, Creatinine 0.98, Estimat Glomerular Filtration Rate 77, BUN/Creatinine Ratio 9, Glucose Level 94, Calcium Level 8.6 03/08/23 06:25: White Blood Count 23.6H, Red Blood Count 2.33L, Hemoglobin 7.7L, Hematocrit 23L, Mean Corpuscular Volume 98, Mean Corpuscular Hemoglobin 33, Mean Corpuscular Hemoglobin Concent 34, Red Cell Distribution Width 16.4H, Platelet Count 5*L, Mean Platelet Volume , Immature Granulocyte % (Auto) 3, Neutrophils (%) (Auto) 25L, Lymphocytes (%) (Auto) 20, Monocytes (%) (Auto) 48H, Eosinophils (%) (Auto) 4, Basophils (%) (Auto) 0, Neutrophils # (Auto) 6.0, Lymphocytes # (Auto) 4.7H, Monocytes # (Auto) 11.2H, Eosinophils # (Auto) 1.0H, Basophils # (Auto) 0.0, Immature Granulocyte # (Auto) 0.6H, Percent Immature Platelet Fraction 7.9H, Sodium Level 139, Potassium Level 3.6, Chloride Level 109H, Carbon Dioxide Level 21, Anion Gap 9, Blood Urea Nitrogen 10, Creatinine 1.00, Estimat Glomerular Filtration Rate 75, BUN/Creatinine Ratio 10, Glucose Level 92, Calcium Level 8.7 03/09/23 06:15: White Blood Count 24.5H, Red Blood Count 2.28L, Hemoglobin 7.4L, Hematocrit 22L, Mean Corpuscular Volume 98, Mean Corpuscular Hemoglobin 33, Mean Corpuscular Hemoglobin Concent 33, Red Cell Distribution Width 16.3H, Platelet Count 14*L, Mean Platelet Volume 9.4, Immature Granulocyte % (Auto) 8, Neutrophils (%) (Auto) 23L, Lymphocytes (%) (Auto) 24, Monocytes (%) (Auto) 41H, Eosinophils (%) (Auto) 4, Basophils (%) (Auto) 0, Neutrophils # (Auto) 5.7, Lymphocytes # (Auto) 5.9H, Monocytes # (Auto) 10.1H, Eosinophils # (Auto) 1.0H, Basophils # (Auto) 0 .0, Immature Granulocyte # (Auto) 1.9H, Percent Immature Platelet Fraction 2.9 03/10/23 06:20: White Blood Count 25.5H, Red Blood Count 2.48L, Hemoglobin 8.0L, Hematocrit 24L, Mean Corpuscular Volume 97, Mean Corpuscular Hemoglobin 32, Mean Corpuscular Hemoglobin Concent 33, Red Cell Distribution Width 16.0H, Platelet Count 10*L, Mean Platelet Volume 12.6H, Immature Granulocyte % (Auto) 8, Neutrophils (%) (Auto) 24L, Lymphocytes (%) (Auto) 25, Monocytes (%) (Auto) 39H, Eosinophils (%) (Auto) 4, Basophils (%) (Auto) 0, Neutrophils # (Auto) 6.2, Lymphocytes # (Auto) 6.3H, Monocytes # (Auto) 9.9H, Eosinophils # (Auto) 0.9H, Basophils # (Auto) 0.0, Immature Granulocyte # (Auto) 2.1H, Percent Immature Platelet Fraction 3.7, Sodium Level 138, Potassium Level 3.8, Chloride Level 109H, Carbon Dioxide Level 20L, Anion Gap 9, Blood Urea Nitrogen 11, Creatinine 0.94, Estimat Glomerular Filtration Rate 81, BUN/Creatinine Ratio 12, Glucose Level 95, Calcium Level 8.5 03/11/23 10:35: White Blood Count 26.9H, Red Blood Count 2.50L, Hemoglobin 8.0L, Hematocrit 24L, Mean Corpuscular Volume 96, Mean Corpuscular Hemoglobin 32, Mean Corpuscular Hemoglobin Concent 34, Red Cell Distribution Width 15.9H, Platelet Count 6*L, Mean Platelet Volume , Immature Granulocyte % (Auto) 8, Neutrophils (%) (Auto) 23L, Lymphocytes (%) (Auto) 20, Monocytes (%) (Auto) 44H, Eosinophils (%) (Auto) 6, Basophils (%) (Auto) 0, Neutrophils # (Auto) 6.1, Lymphocytes # (Auto) 5.3H, Monocytes # (Auto) 11.9H, Eosinophils # (Auto) 1.5H, Basophils # (Auto) 0.0, Immature Granulocyte # (Auto) 2.1H, Percent Immature Platelet Fraction 5.8 03/13/23 05:40: White Blood Count 28.5H, Red Blood Count 2.42L, Hemoglobin 7.8L, Hematocrit 23L, Mean Corpuscular Volume 96, Mean Corpuscular Hemoglobin 32, Mean Corpuscular Hemoglobin Concent 34, Red Cell Distribution Width 15.9H, Platelet Count 5*L, Mean Platelet Volume 13.3H, Immature Granulocyte % (Auto) 6, Neutrophils (%) (Auto) 22L, Lymphocytes (%) (Auto) 23, Monocytes (%) (Auto) 42H, Eosinophils (%) (Auto) 6, Basophils (%) (Auto) 0, Neutrophils # (Auto) 6.3, Lymphocytes # (Auto) 6.6H, Monocytes # (Auto) 12.0H, Eosinophils # (Auto) 1.8H, Basophils # (Auto) 0.0, Immature Granulocyte # (Auto) 1.7H, Neutrophils % (Manual) 20, Lymphocytes % (Manual) 12, Monocytes % (Manual) 12, Eosinophils % (Manual) 8, Band Neutro phils 3, Blast Cells 45, Smudge Cells SLIGHT, Percent Immature Platelet Fraction 5.5, Anisocytosis SLIGHT, Spherocytes SLIGHT, Sodium Level 138, Potassium Level 3.6, Chloride Level 108H, Carbon Dioxide Level 24, Anion Gap 6, Blood Urea Nitrogen 11, Creatinine 0.90, Estimat Glomerular Filtration Rate 85, BUN/Creatinine Ratio 12, Glucose Level 107H, Calcium Level 8.5 03/14/23 06:35: White Blood Count 23.7H, Red Blood Count 2.28L, Hemoglobin 7.3L, Hematocrit 22L, Mean Corpuscular Volume 97, Mean Corpuscular Hemoglobin 32, Mean Corpuscular Hemoglobin Concent 33, Red Cell Distribution Width 16.2H, Platelet Count 14*L, Mean Platelet Volume 9.0, Immature Granulocyte % (Auto) 4, Neutrophils (%) (Auto) 24L, Lymphocytes (%) (Auto) 34, Monocytes (%) (Auto) 33H, Eosinophils (%) (Auto) 5, Basophils (%) (Auto) 0, Neutrophils # (Auto) 5.6, Lymphocytes # (Auto) 8.1H, Monocytes # (Auto) 7.9H, Eosinophils # (Auto) 1.1H, Basophils # (Auto) 0.0, Immature Granulocyte # (Auto) 1.0H, Percent Immature Platelet Fraction 1.9 03/15/23 07:05: White Blood Count 20.9H, Red Blood Count 2.22L, Hemoglobin 7.0L, Hematocrit 21L, Mean Corpuscular Volume 96, Mean Corpuscular Hemoglobin 32, Mean Corpuscular Hemoglobin Concent 33, Red Cell Distribution Width 16.0H, Platelet Count 9*L, Mean Platelet Volume 10.5, Immature Granulocyte % (Auto) 5, Neutrophils (%) (Auto) 22L, Lymphocytes (%) (Auto) 24, Monocytes (%) (Auto) 44H, Eosinophils (%) (Auto) 4, Basophils (%) (Auto) 0, Neutrophils # (Auto) 4.6, Lymphocytes # (Auto) 5.1H, Monocytes # (Auto) 9.3H, Eosinophils # (Auto) 0.9H, Basophils # (Auto) 0.0, Immature Granulocyte # (Auto) 1.1H, Percent Immature Platelet Fraction 1.9, Sodium Level 139, Potassium Level 3.8, Chloride Level 109H, Carbon Dioxide Level 24, Anion Gap 6, Blood Urea Nitrogen 10, Creatinine 0.87, Estimat Glomerular Filtration Rate 86, BUN/Creatinine Ratio 11, Glucose Level 107H, Calcium Level 8.3L Pending Labs Laboratory Tests 03/02/23 06:20: White Blood Count 11.9, Red Blood Count 2.34, Hemoglobin 7.8, Hematocrit 23, Mean Corpuscular Volume 100, Mean Corpuscular Hemoglobin 33, Mean Corpuscular Hemoglobin Concent 34, Red Cell Distribution Width 17.4, Platelet Count 17, Mean Platelet Volume 10.5, Immature Granulocyte % (Auto) 7, Neutrophils (%) (Auto) 8, Lymphocytes (%) (Auto) 28, Monocytes (%) (Auto) 53, Eosinophils (%) (Auto) 5, Basophils (%) (Auto) 0, Neutrophils # (Auto) 0.9, Lymphocytes # (Auto) 3.3, Monocytes # (Auto) 6.3, Eosinophils # (Auto) 0.5, Basophils # (Auto) 0.0, Immature Granulocyte # (Auto) 0.9, Neutrophils % (Manual) 11, Lymphocytes % (Manual) 32, Monocytes % (Manual) 13, Eosinophils % (Manual) 1, Metamyelocytes % 2, Band Neutrophils 1, Blast Cells 40, Percent Immature Platelet Fraction 8.3, Anisocytosis SLIGHT, Sodium Level 140, Potassium Level 3.9, Chloride Level 106, Carbon Dioxide Level 26, Anion Gap 8, Blood Urea Nitrogen 15, Creatinine 0.96, Estimat Glomerular Filtration Rate 79, BUN/Creatinine Ratio 16, Glucose Level 97, Calcium Level 8.7, Corrected Calcium 9.5, Magnesium Level 2.1, Total Bilirubin 1.8, Aspartate Amino Transf (AST/SGOT) 31, Alanine Aminotransferase (ALT/SGPT) 31, Alkaline Phosphatase 80, Total Protein 5.4, Albumin 3.0 03/04/23 06:17: White Blood Count 14.4, Red Blood Count 2.53, Hemoglobin 8.2, Hematocrit 25, Mean Corpuscular Volume 97, Mean Corpuscular Hemoglobin 32, Mean Corpuscular Hemoglobin Concent 33, Red Cell Distribution Width 16.4, Platelet Count 9, Mean Platelet Volume 11.6, Immature Granulocyte % (Auto) 9, Neutrophils (%) (Auto) 14, Lymphocytes (%) (Auto) 19, Monocytes (%) (Auto) 55, Eosinophils (%) (Auto) 3, Basophils (%) (Auto) 0, Neutrophils # (Auto) 2.0, Lymphocytes # (Auto) 2.8, Monocytes # (Auto) 8.0, Eosinophils # (Auto) 0.4, Basophils # (Auto) 0.0, Immature Granulocyte # (Auto) 1.3, Neutrophils % (Manual) [Pending], Percent Immature Platelet Fraction 8.9, Sodium Level 139, Potassium Level 3.4, Chloride Level 107, Carbon Dioxide Level 24, Anion Gap 8, Blood Urea Nitrogen 11, Creatinine 0.97, Estimat Glomerular Filtration Rate 78, BUN/Creatinine Ratio 11, Glucose Level 95, Calcium Level 8.6, Corrected Calcium 9.5, Total Bilirubin 1.6, Aspartate Amino Transf (AST/SGOT) 30, Alanine Aminotransferase (ALT/SGPT) 26, Alkaline Phosphatase 75, Total Protein 5.2, Albumin 2.9, Uric Acid 3.5 03/05/23 05:30: White Blood Count 16.9, Red Blood Count 2.52, Hemoglobin 8.2, Hematocrit 25, Mean Corpuscular Volume 98, Mean Corpuscular Hemoglobin 33, Mean Corpuscular Hemoglobin Concent 33, Red Cell Distribution Width 16.4, Platelet Count 16, Mean Platelet Volume 10.4, Immature Granulocyte % (Auto) 10, Neutrophils (%) (Auto) 17, Lymphocytes (%) (Auto) 25, Monocytes (%) (Auto) 48, Eosinophils (%) (Auto) 0, Basophils (%) (Auto) 0, Neutrophils # (Auto) 2.8, Lymphocytes # (Auto) 4.3, Monocytes # (Auto) 8.2, Eosinophils # (Auto) 0.1, Basophils # (Auto) 0.0, Immature Granulocyte # (Auto) 1.6, Neutrophils % (Manual) 6, Lymphocytes % (Manual) 31, Monocytes % (Manual) 21, Eosinophils % (Manual) 2, Band Neutrophils 2, Blast Cells 34, Percent Immature Platelet Fraction 6.4, Anisocytosis MODERATE, Myelocytes % 1, Atypical Lymphocytes 3, Clumped Platelets NO CLUMPS NOTED 03/06/23 05:45: White Blood Count 21.4, Red Blood Count 2.47, Hemoglobin 8.1, Hematocrit 24, Mean Corpuscular Volume 98, Mean Corpuscular Hemoglobin 33, Mean Corpuscular Hemoglobin Concent 34, Red Cell Distribution Width 16.3, Platelet Count 11, Mean Platelet Volume 9.8, Immature Granulocyte % (Auto) 5, Neutrophils (%) (Auto) 21, Lymphocytes (%) (Auto) 17, Monocytes (%) (Auto) 53, Eosinophils (%) (Auto) 4, Basophils (%) (Auto) 0, Neutrophils # (Auto) 4.5, Lymphocytes # (Auto) 3.7, Monocytes # (Auto) 11.4, Eosinophils # (Auto) 0.9, Basophils # (Auto) 0.0, Immature Granulocyte # (Auto) 1.0, Percent Immature Platelet Fraction 7.0, Sodium Level 138, Potassium Level 3.5, Chloride Level 108, Carbon Dioxide Level 24, Anion Gap 6, Blood Urea Nitrogen 9, Creatinine 0.98, Estimat Glomerular Filtration Rate 77, BUN/Creatinine Ratio 9, Glucose Level 94, Calcium Level 8.6 03/08/23 06:25: White Blood Count 23.6, Red Blood Count 2.33, Hemoglobin 7.7, Hematocrit 23, Mean Corpuscular Volume 98, Mean Corpuscular Hemoglobin 33, Mean Corpuscular Hemoglobin Concent 34, Red Cell Distribution Width 16.4, Platelet Count 5, Mean Platelet Volume , Immature Granulocyte % (Auto) 3, Neutrophils (%) (Auto) 25, Lymphocytes (%) (Auto) 20, Monocytes (%) (Auto) 48, Eosinophils (%) (Auto) 4, Basophils (%) (Auto) 0, Neutrophils # (Auto) 6.0, Lymphocytes # (Auto) 4.7, Monocytes # (Auto) 11.2, Eosinophils # (Auto) 1.0, Basophils # (Auto) 0.0, Immature Granulocyte # (Auto) 0.6, Percent Immature Platelet Fraction 7.9, Sodium Level 139, Potassium Level 3.6, Chloride Level 109, Carbon Dioxide Level 21, Anion Gap 9, Blood Urea Nitrogen 10, Creatinine 1.00, Estimat Glomerular Filtration Rate 75, BUN/Creatinine Ratio 10, Glucose Level 92, Calcium Level 8.7 03/09/23 06:15: White Blood Count 24.5, Red Blood Count 2.28, Hemoglobin 7.4, Hematocrit 22, Mean Corpuscular Volume 98, Mean Corpuscular Hemoglobin 33, Mean Corpuscular Hemoglobin Concent 33, Red Cell Distribution Width 16.3, Platelet Count 14, Mean Platelet Volume 9.4, Immature Granulocyte % (Auto) 8, Neutrophils (%) (Auto) 23, Lymphocytes (%) (Auto) 24, Monocytes (%) (Auto) 41, Eosinophils (%) (Auto) 4, Basophils (%) (Auto) 0, Neutrophils # (Auto) 5.7, Lymphocytes # (Auto) 5.9, Monocytes # (Auto) 10.1, Eosinophils # (Auto) 1.0, Basophils # (Auto) 0.0, Immature Granulocyte # (Auto) 1.9, Percent Immature Platelet Fraction 2.9 03/10/23 06:20: White Blood Count 25.5, Red Blood Count 2.48, Hemoglobin 8.0, Hematocrit 24, Mean Corpuscular Volume 97, Mean Corpuscular Hemoglobin 32, Mean Corpuscular Hemoglobin Concent 33, Red Cell Distribution Width 16.0, Platelet Count 10, Mean Platelet Volume 12.6, Immature Granulocyte % (Auto) 8, Neutrophils (%) (Auto) 24, Lymphocytes (%) (Auto) 25, Monocytes (%) (Auto) 39, Eosinophils (%) (Auto) 4, Basophils (%) (Auto) 0, Neutrophils # (Auto) 6.2, Lymphocytes # (Auto) 6.3, Monocytes # (Auto) 9.9, Eosinophils # (Auto) 0.9, Basophils # (Auto) 0.0, Immature Granulocyte # (Auto) 2.1, Percent Immature Platelet Fraction 3.7, Sodiu m Level 138, Potassium Level 3.8, Chloride Level 109, Carbon Dioxide Level 20, Anion Gap 9, Blood Urea Nitrogen 11, Creatinine 0.94, Estimat Glomerular Filtration Rate 81, BUN/Creatinine Ratio 12, Glucose Level 95, Calcium Level 8.5 03/11/23 10:35: White Blood Count 26.9, Red Blood Count 2.50, Hemoglobin 8.0, Hematocrit 24, Mean Corpuscular Volume 96, Mean Corpuscular Hemoglobin 32, Mean Corpuscular Hemoglobin Concent 34, Red Cell Distribution Width 15.9, Platelet Count 6, Mean Platelet Volume , Immature Granulocyte % (Auto) 8, Neutrophils (%) (Auto) 23, Lymphocytes (%) (Auto) 20, Monocytes (%) (Auto) 44, Eosinophils (%) (Auto) 6, Basophils (%) (Auto) 0, Neutrophils # (Auto) 6.1, Lymphocytes # (Auto) 5.3, Monocytes # (Auto) 11.9, Eosinophils # (Auto) 1.5, Basophils # (Auto) 0.0, Immature Granulocyte # (Auto) 2.1, Percent Immature Platelet Fraction 5.8, Neutrophils % (Manual) [Pending] 03/13/23 05:40: White Blood Count 28.5, Red Blood Count 2.42, Hemoglobin 7.8, Hematocrit 23, Mean Corpuscular Volume 96, Mean Corpuscular Hemoglobin 32, Mean Corpuscular Hemoglobin Concent 34, Red Cell Distribution Width 15.9, Platelet Count 5, Mean Platelet Volume 13.3, Immature Granulocyte % (Auto) 6, Neutrophils (%) (Auto) 22, Lymphocytes (%) (Auto) 23, Monocytes (%) (Auto) 42, Eosinophils (%) (Auto) 6, Basophils (%) (Auto) 0, Neutrophils # (Auto) 6.3, Lymphocytes # (Auto) 6.6, Monocytes # (Auto) 12.0, Eosinophils # (Auto) 1.8, Basophils # (Auto) 0.0, Immature Granulocyte # (Auto) 1.7, Neutrophils % (Manual) 20, Lymphocytes % (Manual) 12, Monocytes % (Manual) 12, Eosinophils % (Manual) 8, Band Neutrophils 3, Blast Cells 45, Smudge Cells SLIGHT, Percent Immature Platelet Fraction 5.5, Anisocytosis SLIGHT, Spherocytes SLIGHT, Sodium Level 138, Potassium Level 3.6, Chloride Level 108, Carbon Dioxide Level 24, Anion Gap 6, Blood Urea Nitrogen 11, Creatinine 0.90, Estimat Glomerular Filtration Rate 85, BUN/Creatinine Ratio 12, Glucose Level 107, Calcium Level 8.5 03/14/23 06:35: White Blood Count 23.7, Red Blood Count 2.28, Hemoglobin 7.3, Hematocrit 22, Mean Corpuscular Volume 97, Mean Corpuscular Hemoglobin 32, Mean Corpuscular Hemoglobin Concent 33, Red Cell Distribution Width 16.2, Platelet Count 14, Mean Platelet Volume 9.0, Immature Granulocyte % (Auto) 4, Neutrophils (%) (Auto) 24, Lymphocytes (%) (Auto) 34, Monocytes (%) (Auto) 33, Eosinophils (%) (Auto) 5, Basophils (%) (Auto) 0, Neutrophils # (Auto) 5.6, Lymphocytes # (Auto) 8.1, Monocytes # (Auto) 7.9, Eosinophils # (Auto) 1.1, Basophils # (Auto) 0.0, Immature Granulocyte # (Auto) 1.0, Percent Immature Platelet Fraction 1.9 03/15/23 07:05: White Blood Count 20.9, Red Blood Count 2.22, Hemoglobin 7.0, Hematocrit 21, Mean Corpuscular Volume 96, Mean Corpuscular Hemoglobin 32, Mean Corpuscular Hemoglobin Concent 33, Red Cell Distribution Width 16.0, Platelet Count 9, Mean Platelet Volume 10.5, Immature Granulocyte % (Auto) 5, Neutrophils (%) (Auto) 22, Lymphocytes (%) (Auto) 24, Monocytes (%) (Auto) 44, Eosinophils (%) (Auto) 4, Basophils (%) (Auto) 0, Neutrophils # (Auto) 4.6, Lymphocytes # (Auto) 5.1, Monocytes # (Auto) 9.3, Eosinophils # (Auto) 0.9, Basophils # (Auto) 0.0, Immature Granulocyte # (Auto) 1.1, Percent Immature Platelet Fraction 1.9, Sodium Level 139, Potassium Level 3.8, Chloride Level 109, Carbon Dioxide Level 24, Anion Gap 6, Blood Urea Nitrogen 10, Creatinine 0.87, Estimat Glomerular Filtration Rate 86, BUN/Creatinine Ratio 11, Glucose Level 107, Calcium Level 8.3 Discharge Home Medications: Active Scripts Active Lotrimin AF (Miconazole Nitrate) 2 % Powder 0 Gm TOP BID twice daily Metoprolol Tartrate 25 Mg Tablet 37.5 Mg PO BID Flomax (Tamsulosin HCl) 0.4 Mg Cap 0.4 Mg PO DAILY@1800 Acyclovir 400 Mg Tablet 800 Mg PO BID Fluconazole 100 Mg Tablet 400 Mg PO DAILY Levofloxacin 750 Mg Tablet 750 Mg PO DAILY@1100 Dutasteride-Tamsulosin 0.5-0.4 (Dutasteride/Tamsulosin HCl) 0.5 Mg-0.4 Mg Cpmp.24hr 1 Each PO WITH DINNER Oxybutynin Chloride ER (Oxybutynin Chloride) 15 Mg Tab.er.24 15 Mg PO DAILY Omeprazole 20 Mg Capsule.dr 20 Mg PO DAILY Instructions to patient/family Please see electronic discharge instructions given to patient. Diagnosis/Problems Diagnosis/Problems (1) Myopathy (2) Acute myelogenous leukemia Status: Acute (3) Atrial fibrillation Status: Chronic (4) CAD (coronary artery disease) (5) HTN (hypertension) Status: Chronic (6) BPH (benign prostatic hyperplasia) Status: Chronic Clinical Quality Measures DVT/VTE Risk/Contraindication: Contraindications-Pharm: Other *list below* Other: transfusion dependent JANEY NAQVI DO Mar 15, 2023 05:02
--- NOTE | 2023-03-15 05:02 | Discharge Inst-Skilled Nursing ---
Discharge Inst-Skilled NF Reconcile Patient Problems Problems Reviewed?: Yes Patient Instructions Patient Problems: AML Consult/Follow Up/Orders Follow Up Appt.: Dr Neri as scheduled Skilled NF Admit to: [facility] Certification (SNF) I certify that SNF services are required to be given on an inpatient basis because of the above named patient's need for long-term care on a continuing basis for the conditions(s) for which he/she was receiving inpatient hospital services prior to his/her transfer to the SNF. Senior Living Facility Order: Nursing Services, [place] Block Setter-Evaluate & Treat, Physical Therapy-Evaluate & Treat Oxygen Delivery Method: Room Air Discharge Diet: No Restrictions Resuscitation Status: Do Not Resuscitate New & Resume Previous Orders New Medications: Acyclovir (Acyclovir) 400 Mg Tablet 800 MG PO BID, #60 TAB Fluconazole (Fluconazole) 100 Mg Tablet 400 MG PO DAILY, #30 TAB Levofloxacin (Levofloxacin) 750 Mg Tablet 750 MG PO DAILY@1100, #7 TAB Metoprolol Tartrate (Metoprolol Tartrate) 25 Mg Tablet 37.5 MG PO BID, #120 TAB Miconazole Nitrate (Lotrimin AF) 2 % Powder 0 GM TOP BID, #1 EA twice daily Tamsulosin HCl (Flomax) 0.4 Mg Cap 0.4 MG PO DAILY@1800, #30 CAP Continued Medications: Dutasteride/Tamsulosin HCl (Dutasteride-Tamsulosin 0.5-0.4) 0.5 Mg-0.4 Mg Cpmp.24hr 1 EACH PO WITH DINNER, #30 EA (This prescription has been renewed) Omeprazole (Omeprazole) 20 Mg Capsule.dr 20 MG PO DAILY, #30 CAP (This prescription has been renewed) Oxybutynin Chloride (Oxybutynin Chloride ER) 15 Mg Tab.er.24 15 MG PO DAILY, #30 TAB (This prescription has been renewed) Discontinued Medications: Apixaban (Eliquis) 5 Mg Tablet 5 MG PO BID, TAB Aspirin (Aspirin) 81 Mg Tab.chew 81 MG PO DAILY, TAB Chlorthalidone (Chlorthalidone) 25 Mg Tablet 12.5 MG PO DAILY, TAB TAKE OF A 25MG TAB Cholecalciferol (Vitamin D3) (Vitamin D3) 25 Mcg (1000 Unit) Tablet 25 MCG PO BID, TAB Cyanocobalamin (Vitamin B-12) (Vitamin B-12) 1,000 Mcg Capsule 1000 MCG PO DAILY, CAP Evolocumab (Repatha Pushtronex) 420 Mg/3.5 Ml Wear.injct 3.5 ML SQ MONTHLY Losartan Potassium (Losartan Potassium) 100 Mg Tablet 100 MG PO DAILY, TAB Metoprolol Tartrate (Metoprolol Tartrate) 100 Mg Tablet 100 MG PO BID, TAB Multivit-Min/FA/Lycopene/Lut (Centrum Silver Tablet) 1 Each Tablet 1 TAB PO DAILY, TAB Sitagliptin Phosphate (Januvia) 100 Mg Tablet 100 MG PO DAILY, TAB Mer Sanchez Mar 15, 2023 05:01 MER SANCHEZ DO Mar 15, 2023 05:02
[2023-03-15] MEDS: CATHETER FLUSH 10 ML SYR IVP SCH ×2 (06:55→12:54)
[2023-03-15] MEDS: THERAPEUTIC MULTIVITAMIN W/MINERALS TABLET PO SCH (06:55)
[2023-03-15 07:11] LABS: BASOPHILS % (AUTO) 0 % (0-10); EOSINOPHILS % (AUTO) 4 % (0-10); HEMATOCRIT 21 % (40-54)
[2023-03-15 07:13] LABS: EOSINOPHILS # (AUTO) 0.9 10^3/uL (0.0-0.3); LYMPHOCYTES # (AUTO) 5.1 10^3/uL (1.0-4.0); LYMPHOCYTES % (AUTO) 24 % (12-44); MEAN CORPUSCULAR HEMOGLOBIN 32 pg (25-34); MEAN CORPUSCULAR HGB CONC 33 g/dL (32-36); MEAN CORPUSCULAR VOLUME 96 fL (80-99); MEAN PLATELET VOLUME 10.5 fL (9.0-12.2); MONOCYTES # (AUTO) 9.3 10^3/uL (0.0-1.0); MONOCYTES % (AUTO) 44 % (0-12); NEUTROPHILS # (AUTO) 4.6 10^3/uL (1.8-7.8); NEUTROPHILS % (AUTO) 22 % (42-75); WHITE BLOOD COUNT 20.9 10^3/uL (4.3-11.0)
[2023-03-15 07:16] LABS: PLATELET COUNT 9 10^3/uL (130-400)
[2023-03-15 07:27] LABS: CALCIUM 8.3 MG/DL (8.5-10.1); CREATININE SERUM 0.87 MG/DL (0.60-1.30); POTASSIUM 3.8 MMOL/L (3.6-5.0)
[2023-03-15 08:00] VITALS: BP 153/79
[2023-03-15] MEDS: ACYCLOVIR 400 MG CAPSULE/TABLET PO SCH (10:14)
[2023-03-15] MEDS: meTOprolol TARTRATE (IR) 25 MG TABLET PO SCH (10:14)
[2023-03-15] MEDS: OXYBUTYNIN 5 MG TABLET PO SCH ×2 (10:15→12:53)
[2023-03-15] MEDS: SENNA W/DOCUSATE TABLET PO SCH (10:15)
[2023-03-15] MEDS: PANTOPRAZOLE 20 MG TABLET PO SCH (10:15)
[2023-03-15] MEDS: MICONAZOLE 2% POWDER 90 GM TOP SCH (10:16)
[2023-03-15] MEDS: DOCUSATE SODIUM 100 MG CAPSULE PO SCH (10:16)
[2023-03-15] MEDS: LevoFLOXacin 750 MG TABLET PO SCH (11:42)
[2023-03-15] MEDS: NS IV 500 ML 500 ML IV SCH (12:45)
--- NOTE | 2023-03-16 14:10 | Therapy Team Discharge Summary ---
Therapy Discharge Summary Discharge Recommendations Date of Discharge Mar 15, 2023 at 16:38 Therapy D/C Recommendations: 24 hr Supervision Physical Therapy Pt is an 82 y/o male who was admitted to for acute leukemia on 02/13/23 ; Pt was admitted to ARU on 03/01/23. At [facility], pt was Ind with the FWW/4WW/SPC (2 SPCs when leaving the home). Upon PT eval, pt was Min A for bed mobility and functional transfers. Pt was only able to walk about 15ft with the FWW and Min A. Pt was only able to complete 50ft of w/c mobility with SBA. PT focused on B LE strength, endurance, safety/balance, functional mobility, and overall Ind. Pt progressed well with PT and met some set goals. Pts lack of endurance and overall fatigue hindered his ability to cont to progress with PT and meet all set goals. Pt was d/c. Pt d/c from ARU on 03/15/23 to a SNF, secondary to his spouse being unable to care for him at home; D/C from PT at this time. Roll Left to Right (QC): 6 Sit to Lying (QC): 6 Lying to Sitting/Side of Bed(Q: 6 Sit to Stand (QC): 6 Chair/Jer-kj-Ieccv Xfer(QC): 6 Toilet Transfer (QC): 6 Car Transfer (QC): 6 Does the Patient Walk: Yes Mode of Locomotion: Both Anticipated Mode of Locomotion: Both Walk 10 feet (QC): 5 Walk 50 ft with 2 Turns(QC): 5 Walk 150 ft (QC): 88 Walking 10ft on uneven surface: 5 Gait Assistive Device: FWW Does the Pt Use a Wheelchair: Yes Wheel 50 ft with 2 turns (QC): 5 Wheel 150 ft (QC): 5 Type of Wheelchair: Manual #of Steps: 6 1 Step (curb) (QC): 4 4 Steps (QC): 88 12 Steps (QC): 88 Walking Assistive Device: Walker Balance Sitting Static: Good Balance Sitting Dynamic: Fair Balance-Standing Static: Fair Picking up an Object (QC): 5 Occupational Therapy Decreased Activ Tolerance, Decreased UE Strength, Impaired Funct Balance, Impaired I ADL's, Impaired Self-Care Skills Eating (QC): 6 (Pt sitting in recliner to eat. Pt able to open all packages and use utensils properly. ) Oral Hygiene (QC): 5 (Pt has demostrated ability to complete oral care with set up in recliner due to fatigue. ) Shower/Bathe Self (QC): 4 (Pt sitting in recliner to complete sponge bath. Frequent rest breaks required due to fatigue. Used figure-four technique to wash feet. CGA in standing while cleansing buttocks/filipe area.) Upper Body Dressing (QC): 5 (Set up clothes on FWW. Sitting in recliner, can don/doff shirt with set up.) Lower Body Dressing (QC): 4 (SBA for toileting with pt able to manage clothing and clean filipe area.) On/Off Footwear (QC): 5 (Pt used figure-four technique to don/doff socks. Lengthy rest break required between feet.) Toileting Hygiene (QC): 4 (SBA for toileting with pt able to manage clothing and clean filipe area.) PT Mcc Goals Votator Machine Operator Goals PT Mcc Goals Time Frame: Mar 15, 2023 Roll Left to Right (QC): 6 (Pt will be Mod I with all aspects of functional mobility to be able to safely return home with spouse. ) Sit to Lying (QC): 6 (Pt will be Mod I with all aspects of functional mobility to be able to safely return home with spouse. ) Lying-Sitting on Side/Bed(QC): 6 (Pt will be Mod I with all aspects of functional mobility to be able to safely return home with spouse. ) Sit to Stand (QC): 6 (Pt will be Mod I with all aspects of functional mobility to be able to safely return home with spouse. ) Chair/Nex-sb-Gionq Xfer(QC): 6 (Pt will be Mod I with all aspects of functional mobility to be able to safely return home with spouse. ) Toilet/Commode Transfer (QC): 6 (Pt will be Mod I with all aspects of functional mobility to be able to safely return home with spouse. ) Car Transfer (QC): 6 (Pt will be Mod I with all aspects of functional mobility to be able to safely return home with spouse. ) Does the Patient Walk: Yes Walk 10 feet (QC): 6 (Pt will be Mod I with all aspects of functional mobility to be able to safely return home with spouse. ) Walk 10ft-Uneven Surface(QC): 6 (Pt will be Mod I with all aspects of functional mobility to be able to safely return home with spouse. ) Walk 50ft with 2 Turns (QC): 6 (Pt will be Mod I with all aspects of functional mobility to be able to safely return home with spouse. ) Walk 150 ft (QC): 6 (Pt will be Mod I with all aspects of functional mobility to be able to safely return home with spouse. ) Does the Pt use WC or Scooter?: Yes Wheel 50 feet with 2 turns (QC: 6 (Pt will be Mod I with all aspects of functional mobility to be able to safely return home with spouse. ) Type: Manual Wheel 150 feet: 6 (Pt will be Mod I with all aspects of functional mobility to be able to safely return home with spouse. ) Type: Manual 1 Step (curb) (QC): 6 (Pt will be Mod I with all aspects of functional mobility to be able to safely return home with spouse. ) 4 Steps (QC): 6 (Pt will be Mod I with all aspects of functional mobility to be able to safely return home with spouse. ) 12 Steps (QC): 6 (Pt will be Mod I with all aspects of functional mobility to be able to safely return home with spouse. ) Picking up an Object (QC): 6 (Pt will be Mod I with all aspects of functional mobility to be able to safely return home with spouse. With keg raiser ) OT Votator Machine Operator Goals Mcc Goals Acute change in mental status: 0 Inattention: 0 Disorganized thinkin Altered level of consciousness: 0 Eating (QC): 6 (met) Oral Hygiene (QC): 6 (not met) Toileting Hygiene (QC): 4 (met) Shower/Bathe Self (QC): 5 (not met) Upper Body Dressing (QC): 6 (not mt) Lower Body Dressing (QC): 4 (met) On/Off Footwear (QC): 5 (met) 1=Demonstrate adherence to instructed precautions during ADL tasks. 2=Patient will verbalize/demonstrate understanding of assistive devices/modifications for ADL. 3=Patient will improve strength/tolerance for activity to enable patient to perform ADL's. CARRINGTON GUTIERRES PT Mar 16, 2023 14:10
--- NOTE | 2023-03-16 16:22 | Therapy Team Discharge Summary ---
Therapy Discharge Summary Discharge Recommendations Date of Discharge Mar 15, 2023 at 16:38 Therapy D/C Recommendations: 24 hr Supervision Physical Therapy Roll Left to Right (QC): 6 Sit to Lying (QC): 6 Lying to Sitting/Side of Bed(Q: 6 Sit to Stand (QC): 6 Chair/Ghf-fp-Dfcdw Xfer(QC): 6 Toilet Transfer (QC): 6 Car Transfer (QC): 6 Does the Patient Walk: Yes Mode of Locomotion: Both Anticipated Mode of Locomotion: Both Walk 10 feet (QC): 5 Walk 50 ft with 2 Turns(QC): 5 Walk 150 ft (QC): 88 Walking 10ft on uneven surface: 5 Gait Assistive Device: FWW Does the Pt Use a Wheelchair: Yes Wheel 50 ft with 2 turns (QC): 5 Wheel 150 ft (QC): 5 Type of Wheelchair: Manual #of Steps: 6 1 Step (curb) (QC): 4 4 Steps (QC): 88 12 Steps (QC): 88 Walking Assistive Device: Walker Balance Sitting Static: Good Balance Sitting Dynamic: Fair Balance-Standing Static: Fair Picking up an Object (QC): 5 Occupational Therapy Pt is an 82 y/o male who was admitted to for acute leukemia on 02/13/23 ; Pt was admitted to ARU on 03/01/23. At PLOF, pt stated he needed some (A) with ADLs/I ADLs from spouse. At initial evaluation, pt was s/u A with feeding and oral care, sub/max A for bathing, partial/mod A for UBD, dependent for LBD, sub/max A for footwear, and dependent for toileting. Pt made good progression in strength and functional mobility/self-care transfers. Pt's biggest hindrance continues to be increased fatigue and decreased activity tolerance. At d/c, pt was (I) with feeding, s/u A for oral care, and SBA for UBD, LBD, footwear, and toileting. Family education held with during admission and went over pt's CLOF and DME needs. At this time, no DME needs from an OT standpoint. Pt was d/c to a SNF on 03/15/23 secondary to increased burden of care and unable to care for pt at the home setting at this time. DC from OT at this time. Decreased Activ Tolerance, Decreased UE Strength, Impaired Funct Balance, Impaired I ADL's, Impaired Self-Care Skills Eating (QC): 6 (Pt sitting in recliner to eat. Pt able to open all packages and use utensils properly. ) Oral Hygiene (QC): 5 (Pt has demostrated ability to complete oral care with set up in recliner due to fatigue. ) Shower/Bathe Self (QC): 4 (Pt sitting in recliner to complete sponge bath. Frequent rest breaks required due to fatigue. Used figure-four technique to wash feet. CGA in standing while cleansing buttocks/filipe area.) Upper Body Dressing (QC): 5 (Set up clothes on FWW. Sitting in recliner, can don/doff shirt with set up.) Lower Body Dressing (QC): 4 (SBA for toileting with pt able to manage clothing and clean filipe area.) On/Off Footwear (QC): 5 (Pt used figure-four technique to don/doff socks. Lengthy rest break required between feet.) Toileting Hygiene (QC): 4 (SBA for toileting with pt able to manage clothing and clean filipe area.) PT Mcc Goals Cnc Machine Programmer Goals PT Mcc Goals Time Frame: Mar 15, 2023 Roll Left to Right (QC): 6 (Pt will be Mod I with all aspects of functional mobility to be able to safely return home with spouse. ) Sit to Lying (QC): 6 (Pt will be Mod I with all aspects of functional mobility to be able to safely return home with spouse. ) Lying-Sitting on Side/Bed(QC): 6 (Pt will be Mod I with all aspects of functional mobility to be able to safely return home with spouse. ) Sit to Stand (QC): 6 (Pt will be Mod I with all aspects of functional mobility to be able to safely return home with spouse. ) Chair/Nns-pn-Bkocj Xfer(QC): 6 (Pt will be Mod I with all aspects of functional mobility to be able to safely return home with spouse. ) Toilet/Commode Transfer (QC): 6 (Pt will be Mod I with all aspects of functional mobility to be able to safely return home with spouse. ) Car Transfer (QC): 6 (Pt will be Mod I with all aspects of functional mobility to be able to safely return home with spouse. ) Does the Patient Walk: Yes Walk 10 feet (QC): 6 (Pt will be Mod I with all aspects of functional mobility to be able to safely return home with spouse. ) Walk 10ft-Uneven Surface(QC): 6 (Pt will be Mod I with all aspects of functional mobility to be able to safely return home with spouse. ) Walk 50ft with 2 Turns (QC): 6 (Pt will be Mod I with all aspects of functional mobility to be able to safely return home with spouse. ) Walk 150 ft (QC): 6 (Pt will be Mod I with all aspects of functional mobility to be able to safely return home with spouse. ) Does the Pt use WC or Scooter?: Yes Wheel 50 feet with 2 turns (QC: 6 (Pt will be Mod I with all aspects of functional mobility to be able to safely return home with spouse. ) Type: Manual Wheel 150 feet: 6 (Pt will be Mod I with all aspects of functional mobility to be able to safely return home with spouse. ) Type: Manual 1 Step (curb) (QC): 6 (Pt will be Mod I with all aspects of functional mobility to be able to safely return home with spouse. ) 4 Steps (QC): 6 (Pt will be Mod I with all aspects of functional mobility to be able to safely return home with spouse. ) 12 Steps (QC): 6 (Pt will be Mod I with all aspects of functional mobility to be able to safely return home with spouse. ) Picking up an Object (QC): 6 (Pt will be Mod I with all aspects of functional mobility to be able to safely return home with spouse. With heating mechanic ) OT Mcc Goals Mcc Goals Acute change in mental status: 0 Inattention: 0 Disorganized thinkin Altered level of consciousness: 0 Eating (QC): 6 (met) Oral Hygiene (QC): 6 (not met) Toileting Hygiene (QC): 4 (met) Shower/Bathe Self (QC): 5 (not met) Upper Body Dressing (QC): 6 (not mt) Lower Body Dressing (QC): 4 (met) On/Off Footwear (QC): 5 (met) 1=Demonstrate adherence to instructed precautions during ADL tasks. 2=Patient will verbalize/demonstrate understanding of assistive devices/modifications for ADL. 3=Patient will improve strength/tolerance for activity to enable patient to perform ADL's. WHIT DE LEON, OT Mar 16, 2023 16:22
== END 2023-03-15 16:38 | DRG 91 ==
PROVIDERS: ADMIT Internal Medicine; ATTEND Internal Medicine
DX: G72.81 Critical illness myopathy (principal); D61.810 Antineoplastic chemotherapy induced pancytopenia; L89.153 Pressure ulcer of sacral region, stage 3; C92.00 Acute myeloblastic leukemia, not having achieved remission; I48.19 Other persistent atrial fibrillation; E44.0 Moderate protein-calorie malnutrition; D63.0 Anemia in neoplastic disease; D69.6 Thrombocytopenia, unspecified; Z66 Do not resuscitate; I25.10 Atherosclerotic heart disease of native coronary artery without angina pectoris; E11.9 Type 2 diabetes mellitus without complications; I10 Essential (primary) hypertension; K21.9 Gastro-esophageal reflux disease without esophagitis; E78.00 Pure hypercholesterolemia, unspecified; G47.33 Obstructive sleep apnea (adult) (pediatric); R32 Unspecified urinary incontinence; N40.1 Benign prostatic hyperplasia with lower urinary tract symptoms; M19.90 Unspecified osteoarthritis, unspecified site; H91.90 Unspecified hearing loss, unspecified ear; Z68.29 Body mass index [BMI] 29.0-29.9, adult; Z79.01 Long term (current) use of anticoagulants; Z91.81 History of falling; Z85.46 Personal history of malignant neoplasm of prostate; Z87.891 Personal history of nicotine dependence; Z95.1 Presence of aortocoronary bypass graft; Z86.73 Personal history of transient ischemic attack (TIA), and cerebral infarction without residual deficits; Z88.6 Allergy status to analgesic agent; Z88.1 Allergy status to other antibiotic agents; Z91.09 Other allergy status, other than to drugs and biological substances; Z79.82 Long term (current) use of aspirin; Z79.899 Other long term (current) drug therapy; T45.1X5A Adverse effect of antineoplastic and immunosuppressive drugs, initial encounter
CPT/HCPCS: 36415; 71045; 80048; 80053; 83735; 84550; 85007; 85025; 85027; 86850; 86900; 86901; 86920; 94664